=== PATIENT | female | born 1945 | race Caucasian/White ===

== ENCOUNTER 2016-05-24 11:38 | Emergency (ER) | payer MEDICARE ==
[~2016-05-24] VITALS: Ht 152.4 cm; Wt 102.1 kg
[~2016-05-24 11:38] MED LIST: ACHD5005 PO; ASP325T; ASP325T NG; ASP81TEC PO; ATEN-155; BPR150TCR; BSP5T; CLOP75TA; DIPH1TAB25 PO; HYDR200T46 PO; LISI1TAB; LOPE2CAP PO; LOPE2CAP29; MULTIVITAMIN; NF-CYM60C; NIAC250T17 PO; NOV; PRD20T PO; S-AD200T6 PO; SIMV20TA3 PO; VLS80C
--- OUTSIDE RECORDS SUMMARY | 2016-05-24 11:46 | XMS REPORT | Continuity of Care Document ---
Author Author [facility] Organization [facility] Address Unknown Phone Unavailable Care Team Providers Care Sorting Machine Attendant Name Role Phone Luanne Mcbride PCP [phone] Source Comments Some departments are not documenting in the electronic medical record. If you do not see the information that you expected, contact Release of Information in the Health Information Management department at [phone] for further assistance in locating additional records.[facility] Active Allergies and Adverse Reactions No Known Allergies Current Medications Prescription Sig. Disp. Refills Start End Date Status Date simvastatin (ZOCOR) 20 mg Take 20 mg by mouth at Active PO tablet bedtime daily. citalopram (CELEXA) 10 mg Take 10 mg by mouth Active PO tablet daily. Naproxen Sodium 220 mg PO Take 1-2 Tabs by mouth Active Tab twice daily as needed. niacin 500 mg PO tablet Take 500 mg by mouth at Active bedtime daily. aspirin 325 mg PO tablet Take 325 mg by mouth Active daily. hydrocodone-acetaminophen Take 1 Tab by mouth every Active (NORCO) 5-325 mg PO per 4 hours as needed. 1 tab tablet q 4-6 hrs prn ergocalciferol (VITAMIN Take 1 Cap by mouth every 12 Cap 0 01/04/20 Active D-2) 50,000 unit PO 7 days. 11 capsule hydroxychloroquine Take 2 Tabs by mouth 60 Tab 2 01/08/20 Active (PLAQUENIL) 200 mg PO daily. 11 tablet Active Problems Not on file Social History Tobacco Use Types Packs/Day Years Used Date Current Every Day Smoker Cigarettes 1 40 Smokeless Tobacco: Never Used Alcohol Use Drinks/Week oz/Week Comments Yes 1 Standard 0.5 drinks or equivalent Last Filed Vital Signs Vital Sign Reading Time Taken Blood Pressure 120/72 12/31/2010 10:51 AM CDT Pulse 97 12/31/2010 10:51 AM CDT Temperature 36.7 C (98 F) 12/31/2010 10:51 AM CDT Respiratory Rate - - Height 1.568 m (5' 1.75") 12/31/2010 10:51 AM CDT Weight 97.614 kg (215 lb 3.2 oz) 12/31/2010 10:51 AM CDT Body Mass Index 39.7 12/31/2010 10:51 AM CDT Oxygen Saturation - - Plan of Care Health Maintenance Due Date Last Done Comments Physical (Comprehensive) 06/21/1952 Exam Pertussis Vaccine 06/21/1958 Tetanus Vaccine 06/21/1964 Breast Cancer Screening 1987 Colorectal Cancer 06/21/1997 Screening Shingles Vaccine 2007 Osteoporosis Screening 06/21/2012 Prevnar/Pneumovax (#1) 06/21/2012 Influenza Vaccine 11/23/2015 Results from Last 3 Months Not on file
[2016-05-24] MEDS ORDERED: NS 100 ML (IVPB) BAG IV ONE (13:30)
[2016-05-24] MEDS ORDERED: NS IV 1000 ML 1,000 ML IV SCH (13:30)
[2016-05-24] MEDS ORDERED: CATHETER FLUSH 10 ML SYR IV PRN (13:30)
[2016-05-24] MEDS ORDERED: fentaNYL INJECTION 100 MCG/2 ML AMP IVP ONE (13:30)
[2016-05-24] MEDS ORDERED: IOHEXOL 350 MG/ML 100 ML (OMNIPAQUE 350) VIAL IV ONE (13:30)
[2016-05-24 13:43] LABS: BASOPHILS % (AUTO) 0 % (0-10); EOSINOPHILS % (AUTO) 0 % (0-10); LYMPHOCYTES # (AUTO) 0.7 X 10^3 (1.0-4.0); LYMPHOCYTES % (AUTO) 7 % (12-44); MEAN CORPUSCULAR HEMOGLOBIN 30 PG (25-34); MEAN CORPUSCULAR HGB CONC 34 G/DL (32-36); MEAN CORPUSCULAR VOLUME 88 FL (80-99); MEAN PLATELET VOLUME 10.7 FL (7.4-10.4); MONOCYTES # (AUTO) 0.5 X 10^3 (0.0-1.0); MONOCYTES % (AUTO) 5 % (0-12); NEUTROPHILS # (AUTO) 9.3 X 10^3 (1.8-7.8); NEUTROPHILS % (AUTO) 89 % (42-75); PLATELET COUNT 250 10^3/uL (130-400); RED BLOOD COUNT 5.14 10^6/uL (4.35-5.85); RED CELL DISTRIBUTION WIDTH 13.7 % (10.0-14.5); WHITE BLOOD COUNT 10.5 10^3/uL (4.3-11.0)
[2016-05-24 14:03] LABS: ALBUMIN 4.1 G/DL (3.2-4.5); BILIRUBIN,TOTAL 0.5 MG/DL (0.1-1.0); CALCIUM 9.2 MG/DL (8.5-10.1); CREATININE SERUM 0.96 MG/DL (0.60-1.30); TOTAL PROTEIN 6.8 G/DL (6.4-8.2)
[2016-05-24 14:16] LABS: BAND NEUTROPHILS 0 %; BASOPHILS % (MANUAL) 0 %; EOSINOPHILS % (MANUAL) 1 %; LYMPHOCYTES % (MANUAL) 7 %; NEUTROPHILS % (MANUAL) 89 %
[2016-05-24 14:31] LABS: BILIRUBIN,URINE NEGATIVE (NEGATIVE); KETONES,URINE NEGATIVE (NEGATIVE); LEUKOCYTE ESTERASE ,URINE NEGATIVE (NEGATIVE); NITRITE,URINE NEGATIVE (NEGATIVE); PH,URINE 6 (5-9); PROTEIN,URINE NEGATIVE (NEGATIVE); UROBILINOGEN,URINE NORMAL (NORMAL)
--- NOTE | 2016-05-24 14:57 | ED Abdominal Pain ---
General Chief Complaint: Abdominal/GI Problems Stated Complaint: RIGHT SIDE LOWER ABD PAIN/NAUSEA Nursing Triage Note: PT CO OF ABD PAIN, PT STATES HAS HX OF CERVICAL CA, PT STATES WAS SEEN BY [facility] ON FRIDAY AND GIVEN PARAFONFORTE, PT RATES PAIN 08/31 Sepsis Screen: No Definite Risk Source of Information: Patient Exam Limitations: No Limitations History of Present Illness Time Seen By Provider: 13:30 Initial Comments 62-year-old female presents with a complaint of abdominal pain present for the last 4 days despite Parafon forte given to her at [facility]. Patient denies associated dysuria, frequency, fever or chill, diarrhea, vomiting, or similar episode in past. Patient is status post cervical cancer and has had hysterectomy. Allergies and Home Medications Allergies Coded Allergies: No Known Drug Allergies (Verified , 10/21/08) Home Medications Aspirin 81 Mg Tabec 81 MG PO DAILY (Reported) Hydrocodone Bit/Acetaminophen 1 Each Tablet 1 EACH PO Q4H PRN PRN PAIN (Reported ) Hydroxychloroquine Sulfate 200 Mg Tab 400 MG PO DAILY (Reported) Niacin 250 Mg Tablet 250 MG PO DAILY (Reported) S-Adenosylmethionine Sul Tosyl 200 Mg Tablet.dr 400 MG PO DAILY (Reported) Review of Systems Constitutional: No chills, No fever EENTM: No Blurred Vision Respiratory: Denies Cough Cardiovascular: Denies Chest Pain Gastrointestinal: Abdominal Pain (patient is complaining of poorly localized lower abdominal pain sharp in nature severe in quality.) Genitourinary: Denies Burning, Denies Frequency Musculoskeletal: No back pain Skin: No rash Psychiatric/Neurological: No Symptoms Reported Endocrine: No Symptoms Reported Hematologic/Lymphatic: No Symptoms Reported Past Liapczg-Klugiq-Czrulb Hx Patient Social History Alcohol Use: Denies Use Recreational Drug Use: No Smoking Status: Never a Smoker Recent Foreign Travel: No Contact w/Someone Who Travel: No Recent Infectious Disease Expo: No Recent Hopitalizations: No (REBECCA,HYST,T&A,R ANKLE PLATE&PIN,TEETH EXTRACTED) Immunizations Up To Date Date of Pneumonia Vaccine: Dec 22, 2008 Date of Influenza Vaccine: Dec 23, 2011 Surgeries HX Surgeries: Yes (MODIFIED RADICAL VULVECTOMY 1991/CHOLECYSTECTOMY) Respiratory Hx Respiratory Disorders: Yes Cardiovascular Hx Cardiac Disorders: No ("PLAQUE BUILD UP") Neurological Hx Neurological Disorders: Yes 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 System Hx 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 Disorders: Yes (HX OF VULVAR CA--MODIFIED RADICAL VULVECTOMY 1991) Sexually Transmitted Disease: No Genitourinary Hx Genitourinary Disorders: No Gastrointestinal Hx Gastrointestinal Disorders: Yes (DIARRHEA ) Musculoskeletal Hx Musculoskeletal Disorders: Yes ("NO CARTILAGE IN KNEES") Endocrine Hx Endocrine Disorders: No HEENT HX ENT Disorders: Yes (DENTURES) Psychosocial Hx Psychiatric Problems: Yes Blood Transfusions Hx Blood Disorders: No Reviewed Nursing Assessment Reviewed/Agree w Nursing PMH: Yes Physical Exam Vital Signs VS - Last 72 Hours, by Label 05/24/16 13:15 Temp 98.3 Pulse 95 Resp 18 B/P 187/94 Pulse Ox 96 Capillary Refill : Less Than 3 Seconds General Appearance: WD/WN mild distress HEENT: normal ENT inspection Neck: normal inspection Respiratory: lungs clear normal breath sounds Cardiovascular: regular rate, rhythm Gastrointestinal: normal bowel sounds tenderness (there is moderate diffuse lower abdominal tenderness.) Extremities: normal range of motion Neurologic/Psychiatric: no motor/sensory deficits Progress/Results/Core Measures Results/Orders Lab Results Laboratory Tests Test 05/24/16 13:30 05/24/16 14:15 Range/Units Alanine Aminotransferase (ALT/SGPT) 18 0-55 U/L Albumin 4.1 3.2-4.5 G/DL Alkaline Phosphatase 68 40-136 U/L Anion Gap 12 5-14 MMOL/L Aspartate Amino Transf (AST/SGOT) 15 5-34 U/L BUN/Creatinine Ratio 15 Band Neutrophils 0 % Basophils # (Auto) 0.0 0.0-0.1 10^3/uL Basophils % (Manual) 0 % Basophils (%) (Auto) 0 0-10 % Blood Morphology Comment NORMAL Blood Urea Nitrogen 14 7-18 MG/DL Calcium Level 9.2 8.5-10.1 MG/DL Carbon Dioxide Level 21 21-32 MMOL/L Chloride Level 108 H 98-107 MMOL/L Creatinine 0.96 0.60-1.30 MG/DL Eosinophils # (Auto) 0.0 0.0-0.3 10^3/uL Eosinophils % (Manual) 1 % Eosinophils (%) (Auto) 0 0-10 % Estimat Glomerular Filtration Rate 58 Glucose Level 115 H 70-105 MG/DL Hematocrit 45 35-52 % Hemoglobin 15.2 11.5-16.0 G/DL Lipase 15 8-78 U/L Lymphocytes # (Auto) 0.7 L 1.0-4.0 X 10^3 Lymphocytes % (Manual) 7 % Lymphocytes (%) (Auto) 7 L 12-44 % Mean Corpuscular Hemoglobin 30 25-34 PG Mean Corpuscular Hemoglobin Concent 34 32-36 G/DL Mean Corpuscular Volume 88 80-99 FL Mean Platelet Volume 10.7 H 7.4-10.4 FL Monocytes # (Auto) 0.5 0.0-1.0 X 10^3 Monocytes % (Manual) 3 % Monocytes (%) (Auto) 5 0-12 % Neutrophils # (Auto) 9.3 H 1.8-7.8 X 10^3 Neutrophils % (Manual) 89 % Neutrophils (%) (Auto) 89 H 42-75 % Platelet Count 250 130-400 10^3/uL Potassium Level 4.0 3.6-5.0 MMOL/L Red Blood Count 5.14 4.35-5.85 10^6/uL Red Cell Distribution Width 13.7 10.0-14.5 % Sodium Level 141 135-145 MMOL/L Total Bilirubin 0.5 0.1-1.0 MG/DL Total Protein 6.8 6.4-8.2 G/DL White Blood Count 10.5 4.3-11.0 10^3/uL Urine Bacteria NEGATIVE /HPF Urine Bilirubin NEGATIVE NEGATIVE Urine Casts NONE /LPF Urine Clarity CLEAR Urine Color YELLOW Urine Crystals NONE /LPF Urine Culture Indicated NO Urine Glucose (UA) NEGATIVE NEGATIVE Urine Ketones NEGATIVE NEGATIVE Urine Leukocyte Esterase NEGATIVE NEGATIVE Urine Mucus NEGATIVE /LPF Urine Nitrite NEGATIVE NEGATIVE Urine Protein NEGATIVE NEGATIVE Urine RBC NONE /HPF Urine RBC (Auto) NEGATIVE NEGATIVE Urine Specific [place] 1.010 L 1.016-1.022 Urine Squamous Epithelial Cells 10-25 H /HPF Urine Urobilinogen NORMAL NORMAL MG/DL Urine WBC NONE /HPF Urine pH 6 5-9 My Orders Orders-SERGIO FARAH MD Cbc With Automated Diff (05/24/16 13:23) Comprehensive Metabolic Panel (05/24/16 13:23) Ua Culture If Indicated (05/24/16 13:23) Lipase (05/24/16 13:23) Ct Abdomen/Pelvis W (05/24/16 13:23) Fentanyl Injection (Sublimaze Injection (05/24/16 13:30) Ns Iv 1000 Ml (Sodium Chloride 0.9%) (05/24/16 13:30) Iohexol Injection (Omnipaque 350 Mg/Ml 1 (05/24/16 13:30) Sodium Chloride Flush (Catheter Flush Sy (05/24/16 13:30) Ns (Ivpb) (Sodium Chloride 0.9% Ivpb Bag (05/24/16 13:30) Manual Differential (05/24/16 13:30) Medications Given in ED Current Medications Medications Dose Ordered Sig/Kenneth Route Start Time Stop Time Status Last Admin Dose Admin Fentanyl Citrate 50 mcg ONCE ONCE IVP 05/24/16 13:30 05/24/16 13:31 DC 05/24/16 13:37 50 MCG Iohexol 100 ml ONCE ONCE IV 05/24/16 13:30 05/24/16 13:41 DC 05/24/16 14:22 100 ML Sodium Chloride 100 ml ONCE ONCE IV 05/24/16 13:30 05/24/16 13:41 DC 05/24/16 14:22 80 ML Vital Signs/I&O Vital Sign - Last 12Hours 05/24/16 13:15 Temp 98.3 Pulse 95 Resp 18 B/P 187/94 Pulse Ox 96 Blood Pressure Mean: 125 Progress Note : Time: 16:50 Progress Note The patient's evaluation emergency Department demonstrated no significant findings on physical exam other than moderate lower abdominal tenderness. The patient's CT of the abdomen, CBC, CMP, and urinalysis were similarly benign. I discussed the findings with the patient and asked that she follow-up closely with her physician on Friday. In the interim I invited her to return the emergency Department if she has any further problems. I am going to give her a trial of tramadol for her pain in place of her hydrocodone. Departure Impression Impression: Primary Impression: Abdominal wall pain Disposition: HOME, SELF-CARE Condition: Improved Decision to Admit Reason: Admit from ER (General) Departure-Patient Inst. Decision time for Depature: 16:53 Referrals: [facility] (PCP[facility]Family) Primary Care Physician Patient Instructions: Acute Abdomen (Belly Pain), Adult (DC) Add. Discharge Instructions: Trial of tramadol for abdominal pain. Close follow-up to health on Friday. Return of any problems. All discharge instructions reviewed with patient and/ or family. Voiced understanding. SERGIO FARAH MD May 24, 2016 14:57
--- NOTE | 2016-05-24 14:59 | Diagnostic Imaging Report ---
PROCEDURE: CT abdomen and pelvis with contrast. TECHNIQUE: Multiple contiguous axial images were obtained through the abdomen and pelvis after administration of intravenous contrast. INDICATION: Right-sided pain. FINDINGS: The appendix was visualized. The appendix is not abnormally thickened and there is no distortion of the periappendiceal fat to suggest acute appendicitis. There is no pelvic mass or free fluid collection identified. As noted on the previous CT abdomen/pelvis exam of 11/14/10, the uterus is surgically absent. The urinary bladder is grossly unremarkable. There is no evidence for a solid mass involving either kidney and both kidneys do show excretion of the contrast. There is no sign of obstruction of either collecting system. The previous exam did show a 1.9 x 2.0 cm cyst along the lateral aspect of the right kidney. This cyst has increased in size and now measures 3.5 x 3.7 cm. A 1.2 x 1.7 cm cyst along the superior pole of the right kidney seen previously is again visualized and also measured larger. This cyst is now estimated to be 2.2 x 2.5 cm. Both of these cysts still have a generally benign appearance. The liver is of lower density than usually seen. This appearance does suggest fatty metamorphosis. There is no focal mass involving the liver and the biliary tree is not abnormally dilated. The gallbladder is surgically absent. The spleen, pancreas, adrenals and inferior vena cava are unremarkable for an acute abnormality. The prior study did show a fair amount of intraluminal thrombus associated with the aorta. The aorta was not aneurysmally dilated. On this exam, the overall appearance of the aorta has not changed significantly. The stomach is not well distended and consequently difficult to assess. There is no obvious gastric abnormality evident. There does appear to be a 2.2 x 2.5 cm hiatal hernia. This was not present on the prior exam. As noted on the prior exam, there are postsurgical changes involving the anterior abdominal wall consistent with prior ventral hernia repair. The repair appears to be intact. There is no sign of a recurrent ventral hernia. The images through the lung bases show a small 5 mm noncalcified nodule in the right lower lobe. That finding is again evident and no different. The bone windows are unremarkable for a fracture or for a destructive lesion. IMPRESSION: 1. There is no evidence for an acute abnormality of the abdomen or pelvis. In particular, there is no sign of appendicitis. 2. The cysts associated with the right kidney seen on the prior study have increased in size. These cysts still have a generally benign appearance. 3. A small hiatal hernia has developed in the interval since the prior exam. 4. The aorta is not abnormally dilated. As noted on the prior exam, there is a fair amount of intraluminal thrombus. 5. The ventral hernia repair seen previously appears intact. There is no sign of a recurrent hernia. 6. The small nodule in the right lung base noted on the prior exam is stable. Most likely, this is a benign process. Dictated by: Dictated on workstation # [id number]
[2016-05-24 17:03] VITALS: BP 145/88
== END 2016-05-24 17:03 | disposition home or self-care (01) ==
LOC: EDUNIT# 11:38 → ER 11:42
DX: R10.30 Lower abdominal pain, unspecified (principal); N28.1 Cyst of kidney, acquired; R91.1 Solitary pulmonary nodule; I74.10 Embolism and thrombosis of unspecified parts of aorta; K44.9 Diaphragmatic hernia without obstruction or gangrene; Z79.82 Long term (current) use of aspirin; Z79.899 Other long term (current) drug therapy; Z85.41 Personal history of malignant neoplasm of cervix uteri; Z85.44 Personal history of malignant neoplasm of other female genital organs; Z90.710 Acquired absence of both cervix and uterus
CPT/HCPCS: 36415; 74177; 80053; 81000; 83690; 85007; 85027; 96374

== ENCOUNTER → 2017-09-11 | Outpatient (CLI) | payer MEDICARE ==
--- NOTE | 2017-09-11 12:40 | Diagnostic Imaging Report ---
INDICATION: Osteoporosis screening. COMPARISON: 11/29/2010. FINDINGS: The bone mineral density of the lumbar spine from L2 to L4 is 1.316 with a T score of 1.0. This compares with 1.351 and 1.3. The bone mineral density in the left femoral neck is 0.865 with a T score of -1.2. This compares with 0.934 and -0.8. The bone mineral density of the right femoral neck is 1.003 with a T score of -0.2. This compares with 0.905 and -1.0. IMPRESSION: Normal bone mineral density of the lumbar spine and right femoral neck. There is osteopenia of the left femoral neck. Dictated by: Dictated on workstation # [id number]
== END ==
LOC: RAD 10:45
PROVIDERS: ATTEND Nurse Practitioner Family
DX: Z13.820 Encounter for screening for osteoporosis (principal); M85.88 Other specified disorders of bone density and structure, other site; Z78.0 Asymptomatic menopausal state
CPT/HCPCS: 77080

== ENCOUNTER 2017-12-19 08:02 | Emergency (ER) | payer MEDICARE ==
[~2017-12-19] VITALS: Ht 157.5 cm; Wt 90.7 kg
--- OUTSIDE RECORDS SUMMARY | 2017-12-19 08:08 | XMS REPORT | Clinical Summary ---
Author Author [facility] Organization [facility] Address Unknown Phone Unavailable Care Team Providers Care Radiation Oncology Therapist Name Role Phone Alyssa Olson MD Unavailable Luanne Mcbride DO PCP Source Comments Some departments are not documenting in the electronic medical record. If you do not see the information that you expected, contact Release of Information in the Health Information Management department at [phone] for further assistance in locating additional records.[facility] Allergies No Known Allergies Current Medications Prescription Sig. [...] D-2) 50,000 unit PO 7 days. 11 capsuleIndications: Vitamin D deficiency hydroxychloroquine Take 2 Tabs by mouth 60 Tab 2 01/08/20 Active (PLAQUENIL) 200 mg PO daily. 11 tablet Active Problems Not on file Family History Medical History Relation Name Comments Diabetes Maternal Grandmother Heart Disease Maternal Grandmother Stroke Maternal Grandmother Diabetes Mother Stroke Mother Epilepsy Son Relation Name Status Comments Brother Alive Maternal Grandfather Maternal Grandmother Mother Alive Sister Alive Son Alive Social History Tobacco Use Types Packs/Day Years Used Date Current Every Day Smoker Cigarettes 1 40 Smokeless Tobacco: Never Used Alcohol Use Drinks/Week oz/Week Comments Yes 1 Standard 0.5 drinks or equivalent Sex Assigned at Date Recorded Not on file Last Filed Vital Signs Vital Sign Reading Time Taken Blood Pressure 120/72 12/31/2010 10:51 AM CDT Pulse 97 12/31/2010 10:51 AM CDT Temperature 36.7 C (98 F) 12/31/2010 10:51 AM CDT Respiratory Rate - - Oxygen Saturation - - Inhaled Oxygen - - Concentration Weight 97.6 kg (215 lb 3.2 oz) 12/31/2010 10:51 AM CDT Height 156.8 cm (5' 1.75") 12/31/2010 10:51 AM CDT Body Mass Index 39.68 12/31/2010 10:51 AM CDT Plan of Treatment Health Maintenance Due Date Last Done Comments HEPATITIS C SCREENING 1945 PHYSICAL (COMPREHENSIVE) 06[birth year]21[birth year]1954 EXAM PERTUSSIS VACCINE 06/21/1958 TETANUS VACCINE 06/21/1964 BREAST CANCER SCREENING 1987 COLORECTAL CANCER 06/21/1997 SCREENING SHINGLES RECOMBINANT 06/21/1997 VACCINE (1 of 2) OSTEOPOROSIS SCREENING 06/21/2012 PNEUMONIA (PCV13/PPSV23) 06/21/2012 VACCINES (1 of 2 - PCV13) INFLUENZA VACCINE 12/22/2017 Results Not on filefrom Last 3 Months
--- OUTSIDE RECORDS SUMMARY | 2017-12-19 08:08 | XMS REPORT ---
Author Author CHRISTA GLORIA Organization [facility] Address [address] [place] [address] Care Team Providers Care Store Warehouse Associate Name Role Phone CHRISTA GLORIA Unavailable PROBLEMS Type Condition ICD9-CM Code [id number] Code Onset Dates Condition Status SNOMED Code Problem Other chronic pain G89.29 Active 12901682 Problem Acute right-sided low back pain with right-sided sciatica M54.41 Active 693858933 Problem Lumbago with sciatica, right side M54.41 Active 425497596 Problem Asymptomatic menopausal state Z78.0 Active 22778984 Problem Episode of recurrent major depressive disorder, unspecified depression episode severity F33.9 Active 233562002 Problem 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 E78.2 Active 077019553 Problem Other chronic pain G89.29 Active 81643312 Problem Anxiety F41.9 Active 44001120 Problem Other organ or system involvement in systemic lupus erythematosus M32.19 Active 45086247 Problem Sciatica M54.30 Active 53798896 Problem Hepatitis C B19.20 Active 52073199 Problem HILARIO (obstructive sleep apnea) G47.33 Active 26124606 Problem 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 Active 399697770 Problem Seborrheic keratoses L82.1 Active 886870800 Problem Urinary frequency R35.0 Active 425071960 ALLERGIES No Information ENCOUNTERS Encounter Location Date Diagnosis [facility] [address] [facility] [id number] [address] Nov, Other organ or system involvement in systemic lupus erythematosus M32.19 [facility] [id number], [place] [address] Oct, Other organ or system involvement in systemic lupus erythematosus M32.19 [facility] [address] [id number], [place] [address] Sep, Other organ or system involvement in systemic lupus erythematosus M32.19 [place] [address], [place] [address] Aug, Anxiety F41.9 [facility] [id number] [place] [address] 69390- 4785 Aug, Other organ or system involvement in systemic lupus erythematosus M32.19 [place] [id number] [place] [address] 62845- 6227 July, Medicare annual wellness visit, initial Z00.00 ; Anxiety F41.9 ; HILARIO (obstructive sleep apnea) G47.33 ; Hepatitis C B19.20 ; Other chronic pain G89.29 ; Asymptomatic menopausal state Z78.0 and Episode of recurrent major depressive disorder, unspecified depression episode severity F33.9 [place] [id number] [address] July, Anxiety F41.9 [place] [id number] [place] [address] 20769- 1977 July, Other organ or system involvement in systemic lupus erythematosus M32.19 [place] [id number] [place] [address] 78850- 7278 July, [place] [id number] [place] [address] 26984- 8823 Jun, Other organ or system involvement in systemic lupus erythematosus M32.19 ; BMI 40.0-44.9, adult Z68.41 ; Other chronic pain G89.29 and Controlled substance agreement signed Z79.899 [place] [address], [place] [address] May, Sciatica M54.30 [place] [id number] [place] [address] 93269- 0369 Apr, Sciatica M54.30 [place] [id number] [place] [address] 66564- 0882 Mar, Sciatica M54.30 [facility] [id number] [place] [address] 17622- 2486 Feb, Sciatica M54.30 [facility] [id number] [place] [address] 08042- 9658 Jan, Sciatica M54.30 [facility] [id number] [place] [address] 58652- 9146 Jan, Sciatica M54.30 [facility] [address] [address]- 2664 Dec, Sciatica M54.30 [place] [address] 78214- 9712 18 Dec, 2016 Sciatica M54.30 [place] [id number] [place] [address] 64302- 0927 29 Nov, 2016 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 E78.2 ; Chronic seasonal allergic rhinitis due to other allergen J30.2 and Family history of early CAD Z82.49 [place] [id number] [place] [address] 39066- 2275 Nov, Sciatica M54.30 [place] [id number] [place] [address] 25947- 6820 18 Nov, 2016 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 E78.2 ; Chronic seasonal allergic rhinitis due to other allergen J30.2 ; Family history of early CAD Z82.49 ; Other chronic pain G89.29 and Pain in left shoulder M25.512 [place] [id number] [place] [address] 80590- 3477 11 Nov, 2016 Acute pain of left shoulder M25.512 [place] [id number] [place] [address] 49751- 8715 23 Oct, 2016 Sciatica M54.30 [facility] [id number] [place] [address] 34257- 2184 Oct, [facility] [id number] [place] [address] 03608- 6250 Sep, Sciatica M54.30 [facility] [id number] [place] [address] 00196- 6446 Sep, Acute pain of left shoulder M25.512 [facility] [id number] [place] [address] 08376- 2162 Sep, Acute pain of left shoulder M25.512 [place] [address] [place] [address] 71365- 4072 Aug, Sciatica M54.30 [place] [address] [place] [address] 20610- 7528 Aug, Sciatica M54.30 ; Tobacco abuse Z72.0 and Tobacco abuse counseling Z71.6 [place] [id number] [place] [address] 94509- 2034 Aug, Acute pain of left shoulder M25.512 [facility] [id number] [place] [address] 65737 -2058 Aug, Contusion of right shoulder, initial encounter S40.011A ; Acute pain of left shoulder M25.512 and Shortness of breath R06.02 [place] [address] [place] [address] 63664- 4311 Aug, Lumbago with sciatica, right side M54.41 [place] [id number] [place] [address] 77990- 4170 July, [place] [id number] [place] [address] 81602- 5473 July, Lumbago with sciatica, right side M54.41 [place] [address] [place] [address] 54855- 3759 Jun, Lumbago with sciatica, right side M54.41 [facility] [id number] [place] [address] 84843- 5235 May, Lumbago with sciatica, right side M54.41 [facility] [id number] [place] [address] 87355 -2163 May, Herpes zoster without complication B02.9 [facility] [id number] [place] [address] 18279 -7081 May, Back pain M54.9 and Acute right-sided low back pain with right-sided sciatica M54.41 [facility] [address] 75247- 0298 Apr, [facility] [address] 42899- 7139 Apr, Lumbago with sciatica, right side M54.41 and Other chronic pain G89.29 [facility] [id number] [place] [address] 48369- 7486 Apr, [facility] [address] 33317- 2154 Mar, [facility] [id number] [place] [address] 63572- 5478 Mar, [facility] [id number] [place] [address] 94536- 1913 Feb, [facility] [id number] [place] [address] 65410 -6647 Jan, Urinary frequency R35.0 [facility] [id number] [place] [address] 91740- 8512 Jan, [facility] [address] [place] [address] 19074- 5654 Dec, [facility] [address] [place] [address] 89621- 9899 Oct, [facility] [address] [place] [address] 02895- 0697 Sep, [facility] [address] [place] [address] 84418 -6397 Sep, Foreign body in left foot, initial encounter S90.852A [facility] [address] [place] [address] 61268- 6057 Aug, [facility] [address] [place] [address] 54636- 6713 July, Sciatica M54.30 [place] [address] 45595- 2222 Jun, [place] [address] 50206- 9482 May, Osteoarthritis M19.90 [place] [address] [place] [address] 15952- 7473 May, [place] [address] 14293- 8197 May, Pain in right hip M25.551 [facility] [address] [place] [address] 24212 -8998 May, Tinea corporis B35.4 [place] [address] [place] [address] 56844- 8225 Apr, Pain in right hip M25.551 [place] [address] [place] [address] 70387- 3211 Mar, Pain in right hip M25.551 [place] [address] [place] [address] 48896- 5716 Mar, [facility] [address] 77039- 2571 Feb, Pain in right hip M25.551 [place] [address] [place] [address] 92210- 0534 13 Jan, 2015 Acute bronchitis, unspecified organism J20.9 and Cough R05 [place] [address], [place] [address]- 5375 Jan, Pain in right hip M25.551 [facility] [address] [place] [address], [place] [address]- 3916 Dec, Pain in right hip M25.551 [facility] [address], [place] [address]- 4846 Nov, Acute bronchitis 466.0 [facility] [address] [address]- 1846 Nov, [facility] [address] [place] [address] 68790- 2806 Oct, [facility] [address], [place] [address]- 7306 Sep, [facility] [address] [place] [address] 07676- 4434 Aug, [facility] [address], [place] [address]- 7749 July, [facility] [address], [place] [address]- 7262 Jun, [facility] [address], [place] [address]- 8064 Jun, [facility] [address], [place] [address]- 2436 May, [facility] [address], [place] [address]- 8227 May, [facility] [id number], [place] [address]- 8733 Apr, [facility] [address], [place] [address]- 2546 Apr, [facility] [address], [place] [address]- 5486 Apr, [facility] [place] [facility] [address] [id number] [place] [address]- 7183 Apr, 2014 [facility] [place] [facility] [address] [id number] [place] [address]- 5118 Apr, [facility] [place] [facility] [address] [id number] [place] [address]- 0312 Apr, [facility] [place] [facility] [address] [id number] [place] [address]- 3792 Mar, [facility] [place] [facility] [address] [id number] [place] [address]- 9533 Mar, [facility] [place] [facility] [address] [id number] [place] [address]- 5859 Feb, [facility] [place] [facility] [address] [id number] [place] [address]- 3875 Feb, [facility] [place] [facility] [address] [id number] [place] [address]- 5338 Feb, [facility] [place] [facility] [address] [id number] [place] [address]- 4640 Dec, [facility] [place] [facility] [address] [id number] [place] [address]- 4341 Dec, [facility] [place] [facility] [address] [facility] [id number], [place] [address]- 3952 Nov, [facility] [place] [facility] [address] [id number], [place] [address]- 6505 17 Nov, 2013 [facility] [place] [facility] [address] [id number] [place] [address]- 8364 Nov, [facility] [place] [facility] [address] [id number] [place] [address]- 0003 Nov, [facility] [place] [facility] [address] [id number], [place] [address]- 5180 Sep, [facility] [place] [facility] [address] [id number], [place] [address]- 5960 Sep, [facility] [place] [facility] [address] [id number] [place] [address]- 7902 Sep, [facility] [place] [facility] [address] [id number] [place] [address]- 4801 Sep, [facility] [place] [facility] [address] [id number] [place] [address]- 1227 Aug, [facility] [place] [facility] [address] [id number] [place] [address]- 9081 Aug, [facility] [place] [facility] [address] [id number] [place] [address]- 1303 Aug, [facility] [place] [facility] [address] [id number] [place] [address]- 4269 Aug, [facility] [place] [facility] [address] [id number] [place] [address]- 0338 July, [facility] [place] [facility] [address] [id number] [place] [address]- 5321 July, [facility] [place] [facility] [address] [id number] [place] [address]- 7638 Jun, [facility] [place] [facility] [address] [id number] [place] [address]- 8624 Jun, [facility] [place] [facility] [address] [id number] [place] [address]- 4527 Jun, [facility] [place] [facility] [address] [id number] [place] [address]- 6984 Jun, [facility] [place] [facility] [address] [id number] [place] [address]- 2298 Jun, [facility] [place] [facility] [address] [id number] [place] [address]- 2903 Jun, [facility] [place] [facility] [address] [id number] [place] [address]- 5956 Jun, [facility] [place] [facility] [address] [id number] [place] [address]- 5592 Jun, [facility] [place] [facility] [address] [id number] [place] [address]- 7720 May, [facility] [place] [facility] [address] [id number] [place] 4122 May, [facility] [place] [facility] [address] [id number] [place] [address]- 9129 May, [facility] [place] [facility] [address] [id number] [place] [address]- 8659 May, [facility] [place] [facility] [address] [id number] [place] [address]- 9508 May, [facility] [place] [facility] [address] [id number] [place] [address]- 5126 May, [facility] [place] [facility] [address] [id number] [place] [address]- 3181 Apr, [facility] [place] [facility] [address] [id number] [place] [address]- 8257 Apr, [facility] [place] [facility] [address] [id number] [place] [address]- 7011 Apr, [facility] [place] [facility] [address] [id number] [place] [address]- 0696 Apr, [facility] [place] [facility] [address] [id number] [place] [address]- 7616 Mar, [facility] [place] [facility] [address] [id number] [place] [address]- 3477 Mar, [facility] [place] [facility] [address] [id number] [place] [address]- 2552 Mar, [facility] [place] [facility] [address] [id number] [place] [address]- 2185 Mar, [facility] [place] [facility] [address] [id number], [place] [address]- 1246 Mar, [facility] [address] [id number] [place] [address]- 0795 Mar, [facility] [address] [id number] [place] [address]- 4896 Feb, [facility] [address] [id number] [place] [address]- 2896 Feb, [facility] [place] [facility] [address] [id number] [place] [address]- 5794 Feb, [facility] [address] [id number] [place] [address]- 0997 Feb, [facility] [address] [id number] [place] [address]- 7826 Feb, [facility] [address] [id number] [place] [address]- 7744 Feb, [facility] [place] [facility] [address] [id number] [place] [address]- 6394 Feb, [facility] [address] [id number] [place] [address]- 4744 Feb, [facility] [place] [facility] [address] [id number] [place] [address]- 3571 Feb, [facility] [place] [facility] [address] [id number], [place] [address]- 9626 Feb, [facility] [place] [facility] [address] [id number], [place] [address]- 2547 Feb, [facility] [place] [facility] [address] [id number] [place] [address]- 7194 Feb, [facility] [place] [facility] [address] [id number], [place] [address]- 6401 Jan, [facility] [place] [facility] [address] [id number] [place] [address]- 2546 Jan, [facility] [place] [facility] [address] [id number] [place] [address]- 6687 Jan, [facility] [address] [id number] [place] [address]- 0573 Jan, [facility] [place] [facility] [address] [id number] [place] [address]- 5440 Jan, [facility] [address] [id number] [place] [address]- 6759 Jan, [facility] [place] [facility] [address] [id number] [place] [address]- 1710 Jan, [facility] [address] [id number] [place] [address]- 6238 Jan, [facility] [address] [id number] [place] [address]- 6090 Jan, [facility] [address] [id number] [place] [address]- 7007 Jan, [facility] [address] [id number] [place] [address]- 9118 Dec, [facility] [place] [facility] [address] [id number] [place] [address]- 0012 Dec, [facility] [address] [id number] [place] [address]- 5409 Nov, [facility] [place] [facility] [address] [id number] [place] [address]- 2545 Nov, [facility] [place] [facility] [address] [id number] [place] [address]- 2544 Nov, [facility] [place] [facility] [address] [id number] [place] [address]- 2639 05 Nov, 2012 [facility] [place] [facility] [address] [id number] [place] [address]- 9084 Nov, [facility] [place] [facility] [address] [id number] [place] [address]- 3715 Oct, [facility] [address] [id number] [place] [address]- 6953 Oct, [facility] [place] [facility] [address] [id number] [place] [address]- 1303 Oct, [facility] [place] [facility] [address] [id number] [place] [address]- 1860 Oct, [facility] [place] [facility] [address] [id number] [place] [address]- 2864 Oct, [facility] [place] [facility] [address] [id number] [place] [address]- 8536 Sep, [facility] [place] [facility] [address] [id number] [place] [address]- 9994 Sep, [facility] [place] [facility] [address] [id number] [place] [address]- 7924 Sep, [facility] [place] [facility] [address] [id number] [place] [address]- 9399 Sep, [facility] [place] [facility] [address] [id number] [place] [address]- 9930 Sep, [facility] [place] [facility] [address] [id number] [place] [address]- 0774 Sep, [facility] [place] [facility] [address] [id number] [place] [address]- 7210 Aug, [facility] [place] [facility] [address] [id number] [place] [address]- 6524 Aug, [facility] [place] [facility] [address] [id number] [place] [address]- 1545 July, [facility] [place] [facility] [address] [id number] [place] [address]- 0898 July, [facility] [place] [facility] [address] [id number] [place] [address]- 0596 July, [facility] [place] [facility] [address] [id number] [place] [address]- 8026 23 Jun, 2012 [facility] [address] [id number] [place] [address]- 5833 18 Jun, 2012 [facility] [place] [facility] [address] [id number] [place] [address]- 3473 16 Jun, 2012 [facility] [address] [facility] [id number] [place] [address]- 7474 Jun, [facility] [address] [id number] [place] [address]- 79[address] May, [facility] [address] [id number] [place] [address] May, [facility] [address] [id number] [place] [address] Apr, [facility] [address] [id number] [place] [address] Apr, [facility] [address] [id number] [place] [address] Apr, [facility] [address] [id number] [place] [address] Apr, [facility] [address] [facility] [id number] [place] [address] Apr, [facility] [address] [id number] [place] [address] Apr, [facility] [address] [facility] [id number] [place] [id number] Apr, [facility] [place] [facility] [address] [id number] [place] [address] Apr, [facility] [place] [facility] [address] [facility] [id number] [place] [address]196 Mar, [facility] [facility] [address] [facility] [id number] [place] [address] Mar, [facility] [place] [address] [id number] [place] [address] Mar, [facility] [address] [id number] [place] [address] Mar, [facility] [place] [facility] [address] [id number] [place] [address] Jan, [facility] [address] [id number] [place] [address], [place] [address] Jan, [facility] [address] [id number] [place] [address] Jan, [facility] [address] [id number] [place] [address] Jan, [facility] [place] [address] [id number] [place] [address] Jan, [facility] [address] [id number] [place] [address] Dec, [facility] [place] [address] [id number] [place] [address] Dec, [facility] [place] [facility] [address] [id number] [place] [address] Dec, [facility] [place] [address] [id number] [place] [address]77 Dec, [facility] [place] [address] [id number] [place] [address] Nov, [facility] [place] [facility] [address] [id number] [place] [address] Oct, [facility] [address] [id number] [place] [address]90 Oct, [facility] [address] [id number] [place] [address] Oct, [facility] [place] [address] [id number] [place] [address] Oct, [facility] [address] [id number] [place] [address] Oct, [facility] [address] [id number] [place] [address] Sep, [facility] [address] [id number] [place] [address] Sep, [facility] [address] [id number] [place] [address] Aug, [facility] [address] [id number] [place] [address] Aug, [facility] [place] [facility] [address] [id number] [place] [address] Aug, [facility] [place] [address] [id number] [place] [address]75 Aug, [facility] [address] [id number] [place] [address] July, [facility] [place] [facility] [address] [id number] [place] [address]397 Jun, [facility] [place] [facility] [address] [id number] [place] [address] May, [facility] [address] [id number] [place] [address]25 May, [facility] [place] [address] [id number] [place] [address] May, [facility] [address] [id number] [place] [address] Mar, [facility] [address] [id number] [place] [address]697 Feb, [facility] [address] [id number] [place] [address] Feb, [facility] [id number] [place] [address] Jan, [facility] [id number] [place] [address] Jan, [facility] [id number] [place] [address] Jan, [facility] [id number], [place] [address] Jan, [facility] [id number] [place] [address] Jan, [facility] [id number] [place] [id number] Dec, [facility] [id number] [address] Dec, [facility] [id number] [place] [id number] Dec, [facility] [id number] [address] May, [facility] [id number] [address] May, [facility] [id number] [address] Apr, [facility] [id number] [address] Jan, [facility] [id number] [address] Apr, IMMUNIZATIONS No Known Immunizations SOCIAL HISTORY Never Assessed REASON FOR VISIT Controlled Med Refill PLAN OF CARE VITAL SIGNS MEDICATIONS Medication Instructions Dosage Frequency Start Date End Date Duration Status [place] 5-325 MG Orally every 6 hrs PRN 1 tablet Nov, 28 days Active RESULTS No Results PROCEDURES No Known procedures INSTRUCTIONS MEDICATIONS ADMINISTERED No Known Medications MEDICAL (GENERAL) HISTORY Type Description Date Medical History unspecified connective tissue disease Medical History cancer(vulvar) Medical History cancer(cervical) Medical History depression Medical History Sciatica Medical History Sciatica Medical History Chronic hepatitis C without mention of hepatic coma Medical History Unspecified disorder of kidney and ureter Medical History Counseling on substance use and abuse Surgical History cholecystectomy Surgical History hysterectomy Surgical History modified radical vulvectomy for cancer Hospitalization History surgeries
--- OUTSIDE RECORDS SUMMARY | 2017-12-19 08:08 | XMS REPORT ---
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 Name Role Phone CHRISTA GLORIA Unavailable PROBLEMS Type Condition ICD9-CM Code KAZ60-DV Code Onset Dates Condition Status SNOMED Code Problem Other chronic pain G89.29 Active 90098231 Problem Acute right-sided low back pain with right-sided sciatica M54.41 Active 694841117 Problem Lumbago with sciatica, right side M54.41 Active 667195021 Problem Asymptomatic menopausal state Z78.0 Active 63161125 Problem Episode of recurrent major depressive disorder, unspecified depression episode severity F33.9 Active 254641994 Problem 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 E78.2 Active 152711909 Problem Other chronic pain G89.29 Active 46331120 Problem Anxiety F41.9 Active 16221467 Problem Other organ or system involvement in systemic lupus erythematosus M32.19 Active 17382147 Problem Sciatica M54.30 Active 35819848 Problem Hepatitis C B19.20 Active 84414756 Problem HILARIO (obstructive sleep apnea) G47.33 Active 28558453 Problem 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 Active 709377945 Problem Seborrheic keratoses L82.1 Active 813973429 Problem Urinary frequency R35.0 Active [id number] ALLERGIES No Information ENCOUNTERS Encounter Location Date Diagnosis [facility] [place] [address] [facility] [id number] [address] Nov, Other organ or system involvement in systemic lupus erythematosus M32.19 [facility] [place] [id number], [place] [address] Oct, Other organ or system involvement in systemic lupus erythematosus M32.19 [facility] [place] [address] [id number], [place] [address] Sep, Other organ or system involvement in systemic lupus erythematosus M32.19 [place] [address], [place] [address] Aug, Anxiety F41.9 [facility] [place] [id number] [place] [address] 09892- 8373 Aug, Other organ or system involvement in systemic lupus erythematosus M32.19 [place] [id number] [place] [address] 36642- 0558 July, Medicare annual wellness visit, initial Z00.00 ; Anxiety F41.9 ; HILARIO (obstructive sleep apnea) G47.33 ; Hepatitis C B19.20 ; Other chronic pain G89.29 ; Asymptomatic menopausal state Z78.0 and Episode of recurrent major depressive disorder, unspecified depression episode severity F33.9 [place] [id number] [address] July, Anxiety F41.9 [place] [id number] [place] [address] 61366- 2655 July, Other organ or system involvement in systemic lupus erythematosus M32.19 [place] [id number] [place] [address] 81622- 3853 July, [place] [id number] [place] [address] 25598- 0219 Jun, Other organ or system involvement in systemic lupus erythematosus M32.19 ; BMI 40.0-44.9, adult Z68.41 ; Other chronic pain G89.29 and Controlled substance agreement signed Z79.899 [place] [address], [place] [address] May, Sciatica M54.30 [place] [id number] [place] [address] 18211- 5635 Apr, Sciatica M54.30 [place] [id number] [place] [address] 33566- 3801 Mar, Sciatica M54.30 [facility] [place] [id number] [place] [address] 17138- 9170 Feb, Sciatica M54.30 [facility] [place] [id number] [place] [address] 34696- 9962 Jan, Sciatica M54.30 [facility] [place] [id number] [place] [address] 71255- 2595 Jan, Sciatica M54.30 [facility] [place] [address] [address]- 0812 Dec, Sciatica M54.30 [place] [address] 61361- 9066 18 Dec, 2016 Sciatica M54.30 [place] [id number] [place] [address] 63863- 0819 29 Nov, 2016 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 E78.2 ; Chronic seasonal allergic rhinitis due to other allergen J30.2 and Family history of early CAD Z82.49 [place] [id number] [place] [address] 95917- 3968 Nov, Sciatica M54.30 [place] [id number] [place] [address] 16458- 5884 18 Nov, 2016 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 E78.2 ; Chronic seasonal allergic rhinitis due to other allergen J30.2 ; Family history of early CAD Z82.49 ; Other chronic pain G89.29 and Pain in left shoulder M25.512 [place] [id number] [place] [address] 66688- 3024 11 Nov, 2016 Acute pain of left shoulder M25.512 [place] [id number] [place] [address] 02505- 0229 23 Oct, 2016 Sciatica M54.30 [facility] [place] [id number] [place] [address] 88695- 4540 Oct, [facility] [place] [id number] [place] [address] 68580- 3625 Sep, Sciatica M54.30 [facility] [place] [id number] [place] [address] 49880- 0517 Sep, Acute pain of left shoulder M25.512 [facility] [place] [id number] [place] [address] 32157- 7088 Sep, Acute pain of left shoulder M25.512 [place] [id number] [place] [address] 99109- 0712 Aug, Sciatica M54.30 [place] [id number] [place] [address] 96721- 6840 Aug, Sciatica M54.30 ; Tobacco abuse Z72.0 and Tobacco abuse counseling Z71.6 [place] [id number] [place] [address] 75990- 8794 Aug, Acute pain of left shoulder M25.512 [facility] [id number] [place] [address] 42002 -1824 Aug, Contusion of right shoulder, initial encounter S40.011A ; Acute pain of left shoulder M25.512 and Shortness of breath R06.02 [place] [id number] [place] [address] 43233- 6206 Aug, Lumbago with sciatica, right side M54.41 [place] [id number] [place] [address] 02740- 8074 July, [place] [id number] [place] [address] 50130- 7457 July, Lumbago with sciatica, right side M54.41 [place] [id number] [place] [address] 49806- 0657 Jun, Lumbago with sciatica, right side M54.41 [facility] [place] [id number] [place] [address] 94171- 6220 May, Lumbago with sciatica, right side M54.41 [facility] [id number] [place] [address] 59628 -8142 May, Herpes zoster without complication B02.9 [facility] [id number] [place] [address] 45450 -0077 May, Back pain M54.9 and Acute right-sided low back pain with right-sided sciatica M54.41 [facility] [place] [address] 26318- 4076 Apr, [facility] [place] [address] 14929- 2684 Apr, Lumbago with sciatica, right side M54.41 and Other chronic pain G89.29 [facility] [place] [id number] [place] [address] 44082- 3892 Apr, [facility] [place] [address] 49965- 9519 Mar, [facility] [place] [id number] [place] [address] 17864- 8762 Mar, [facility] [place] [id number] [place] [address] 95168- 8882 Feb, [facility] [id number] [place] [address] 78438 -6289 Jan, Urinary frequency R35.0 [facility] [place] [id number] [place] [address] 10134- 6897 Jan, [facility] [place] [id number] [place] [address] 35234- 7367 Dec, [facility] [place] [id number] [place] [address] 65371- 7945 Oct, [facility] [place] [id number] [place] [address] 28651- 0368 Sep, [facility] [id number] [place] [address] 90303 -5842 Sep, Foreign body in left foot, initial encounter S90.852A [facility] [place] [id number] [place] [address] 74849- 5410 Aug, [facility] [place] [id number] [place] [address] 57113- 2533 July, Sciatica M54.30 [place] [address] 65559- 4614 Jun, [place] [address] 46108- 9839 May, Osteoarthritis M19.90 [place] [id number] [place] [address] 34746- 1688 May, [place] [address] 45013- 0468 May, Pain in right hip M25.551 [facility] [id number] [place] [address] 81774 -5734 May, Tinea corporis B35.4 [place] [id number] [place] [address] 03982- 8861 Apr, Pain in right hip M25.551 [place] [id number] [place] [address] 67393- 4736 Mar, Pain in right hip M25.551 [place] [id number] [place] [address] 44633- 0167 Mar, [facility] [place] [address] 19640- 3357 Feb, Pain in right hip M25.551 [place] [id number] [place] [address] 59380- 0002 13 Jan, 2015 Acute bronchitis, unspecified organism J20.9 and Cough R05 [place] [address], [place] [address]- 4269 Jan, Pain in right hip M25.551 [facility] [place] [id number] [place] [address], [place] [address]- 4196 Dec, Pain in right hip M25.551 [facility] [address], [place] [address]- 8416 Nov, Acute bronchitis 466.0 [facility] [id number], [place] [address]- 0856 Nov, [facility] [id number] [place] [address] 18112- 7859 Oct, [facility] [address], [place] [address]- 5436 Sep, [facility] [place] [id number] [place] [address] 54253- 2092 Aug, [facility] [address], [place] [address]- 8658 July, [facility] [address], [place] [address]- 3050 Jun, [facility] [address], [place] [address]- 8667 Jun, [facility] [address], [place] [address]- 3566 May, [facility] [address], [place] [address]- 7731 May, [facility] [id number], [place] [address]- 0711 Apr, [facility] [address], [place] [address]- 2546 Apr, [facility] [address], [place] [address]- 0036 Apr, [facility] [place] [facility] [address] [id number] [place] [address]- 7300 Apr, 2014 [facility] [place] [facility] [address] [id number] [place] [address]- 0119 Apr, [facility] [place] [facility] [address] [id number] [place] [address]- 8616 Apr, [facility] [place] [facility] [address] [id number] [place] [address]- 0315 Mar, [facility] [place] [facility] [address] [id number] [place] [address]- 9972 Mar, [facility] [place] [facility] [address] [id number] [place] [address]- 5814 Feb, [facility] [place] [facility] [address] [id number] [place] [address]- 5934 Feb, [facility] [place] [facility] [address] [id number] [place] [address]- 8973 Feb, [facility] [place] [facility] [address] [id number] [place] [address]- 6656 Dec, [facility] [place] [facility] [address] [id number] [place] [address]- 6690 Dec, [facility] [place] [facility] [address] [facility] [id number], [place] [address]- 6677 Nov, [facility] [place] [facility] [address] [id number], [place] [address]- 3994 17 Nov, 2013 [facility] [place] [facility] [address] [id number] [place] [address]- 4919 Nov, [facility] [place] [facility] [address] [id number] [place] [address]- 3382 Nov, [facility] [place] [facility] [address] [id number], [place] [address]- 3424 Sep, [facility] [place] [facility] [address] [id number], [place] [address]- 6855 Sep, [facility] [place] [facility] [address] [id number] [place] [address]- 3318 Sep, [facility] [place] [facility] [address] [id number] [place] [address]- 2615 Sep, [facility] [place] [facility] [address] [id number] [place] [address]- 0937 Aug, [facility] [place] [facility] [address] [id number] [place] [address]- 6624 Aug, [facility] [place] [facility] [address] [id number] [place] [address]- 2552 Aug, [facility] [place] [facility] [address] [id number] [place] [address]- 7737 Aug, [facility] [place] [facility] [address] [id number] [place] [address]- 2466 July, [facility] [place] [facility] [address] [id number] [place] [address]- 9156 July, [facility] [place] [facility] [address] [id number] [place] [address]- 7349 Jun, [facility] [place] [facility] [address] [id number] [place] [address]- 6000 Jun, [facility] [place] [facility] [address] [id number] [place] [address]- 9255 Jun, [facility] [place] [facility] [address] [id number] [place] [address]- 2730 Jun, [facility] [place] [facility] [address] [id number] [place] [address]- 9264 Jun, [facility] [place] [facility] [address] [id number] [place] [address]- 8852 Jun, [facility] [place] [facility] [address] [id number] [place] [address]- 5427 Jun, [facility] [place] [facility] [address] [id number] [place] [address]- 1230 Jun, [facility] [place] [facility] [address] [id number] [place] [address]- 4607 May, [facility] [place] [facility] [address] [id number] [place] 5254 May, [facility] [place] [facility] [address] [id number] [place] [address]- 1303 May, [facility] [place] [facility] [address] [id number] [place] [address]- 9530 May, [facility] [place] [facility] [address] [id number] [place] [address]- 9462 May, [facility] [place] [facility] [address] [id number] [place] [address]- 7832 May, [facility] [place] [facility] [address] [id number] [place] [address]- 9456 Apr, [facility] [place] [facility] [address] [id number] [place] [address]- 3991 Apr, [facility] [place] [facility] [address] [id number] [place] [address]- 1115 Apr, [facility] [place] [facility] [address] [id number] [place] [address]- 9655 Apr, [facility] [place] [facility] [address] [id number] [place] [address]- 0378 Mar, [facility] [place] [facility] [address] [id number] [place] [address]- 4051 Mar, [facility] [place] [facility] [address] [id number] [place] [address]- 2113 Mar, [facility] [place] [facility] [address] [id number] [place] [address]- 0539 Mar, [facility] [place] [facility] [address] [id number], [place] [address]- 9026 Mar, [facility] [address] [id number] [place] [address]- 8908 Mar, [facility] [address] [id number] [place] [address]- 9786 Feb, [facility] [address] [id number] [place] [address]- 6316 Feb, [facility] [place] [facility] [address] [id number] [place] [address]- 4888 Feb, [facility] [address] [id number] [place] [address]- 8155 Feb, [facility] [address] [id number] [place] [address]- 1057 Feb, [facility] [address] [id number] [place] [address]- 8848 Feb, [facility] [place] [facility] [address] [id number] [place] [address]- 0934 Feb, [facility] [address] [id number] [place] [address]- 8565 Feb, [facility] [place] [facility] [address] [id number] [place] [address]- 9504 Feb, [facility] [place] [facility] [address] [id number], [place] [address]- 1277 Feb, [facility] [place] [facility] [address] [id number], [place] [address]- 2549 Feb, [facility] [place] [facility] [address] [id number] [place] [address]- 4697 Feb, [facility] [place] [facility] [address] [id number], [place] [address]- 1201 Jan, [facility] [place] [facility] [address] [id number] [place] [address]- 2546 Jan, [facility] [place] [facility] [address] [id number] [place] [address]- 5071 Jan, [facility] [address] [id number] [place] [address]- 8042 Jan, [facility] [place] [facility] [address] [id number] [place] [address]- 3465 Jan, [facility] [address] [id number] [place] [address]- 7818 Jan, [facility] [place] [facility] [address] [id number] [place] [address]- 3435 Jan, [facility] [address] [id number] [place] [address]- 6669 Jan, [facility] [address] [id number] [place] [address]- 7008 Jan, [facility] [address] [id number] [place] [address]- 2152 Jan, [facility] [address] [id number] [place] [address]- 0698 Dec, [facility] [place] [facility] [address] [id number] [place] [address]- 1087 Dec, [facility] [address] [id number] [place] [address]- 8440 Nov, [facility] [place] [facility] [address] [id number] [place] [address]- 2541 Nov, [facility] [place] [facility] [address] [id number] [place] [address]- 2543 Nov, [facility] [place] [facility] [address] [id number] [place] [address]- 7187 05 Nov, 2012 [facility] [place] [facility] [address] [id number] [place] [address]- 3942 Nov, [facility] [place] [facility] [address] [id number] [place] [address] Oct, [facility] [address] [id number] [place] [address] Oct, [facility] [place] [facility] [address] [id number] [place] [address] Oct, [facility] [place] [facility] [address] [id number] [place] [address] Oct, [facility] [place] [facility] [address] [id number] [place] [address] Oct, [facility] [place] [facility] [address] [id number] [place] [address] Sep, [facility] [place] [facility] [address] [id number] [place] [address] Sep, [facility] [place] [facility] [address] [id number] [place] [address] Sep, [facility] [place] [facility] [address] [id number] [place] [address] Sep, [facility] [place] [facility] [address] [id number] [place] [address] Sep, [facility] [place] [facility] [address] [id number] [place] [address] Sep, [facility] [place] [facility] [address] [id number] [place] [address] Aug, [facility] [place] [facility] [address] [id number] [place] [address] Aug, [facility] [place] [facility] [address] [id number] [place] [address] July, [facility] [place] [facility] [address] [id number] [place] [address] July, [facility] [place] [facility] [address] [id number] [place] [address] July, [facility] [place] [facility] [address] [id number] [place] [address] 23 Jun, 2012 [facility] [address] [id number] [place] [address] 18 Jun, 2012 [facility] [place] [facility] [address] [id number] [place] [address] 16 Jun, 2012 [facility] [address] [facility] [id number] [place] [address] Jun, [facility] [address] [id number] [place] [address] May, [facility] [address] [id number] [place] May, [facility] [address] [id number] [place] [address] Apr, [facility] [address] [id number] [place] [address] Apr, [facility] [address] [id number] [place] [address] Apr, [facility] [address] [id number] [place] [address] Apr, [facility] [address] [facility] [id number] [place] [address] Apr, [facility] [address] [id number] [place] [address] Apr, [facility] [address] [facility] [id number] [place] [id number] Apr, [facility] [place] [facility] [address] [id number] [place] [address] Apr, [facility] [place] [facility] [address] [facility] [id number] [place] [address] Mar, [facility] [place] [facility] [address] [facility] [id number] [place] [address] Mar, [facility] [place] [facility] [address] [id number] [place] [address] Mar, [facility] [place] [facility] [address] [id number] [place] [address] Mar, [facility] [place] [facility] [address] [id number] [place] [address] Jan, [facility] [place] [facility] [address] [id number] [place] [address], [place] [address] Jan, [facility] [place] [facility] [address] [id number] [place] [address] Jan, [facility] [place] [facility] [address] [id number] [place] [address] Jan, [facility] [place] [facility] [address] [id number] [place] [address] Jan, [facility] [place] [facility] [address] [id number] [place] [address] Dec, [facility] [place] [facility] [address] [id number] [place] [address] Dec, [facility] [place] [facility] [address] [id number] [place] [address] Dec, [facility] [place] [facility] [address] [id number] [place] [address] Dec, [facility] [place] [facility] [address] [id number] [place] [address] Nov, [facility] [place] [facility] [address] [id number] [place] [address] Oct, [facility] [place] [facility] [address] [id number] [place] [address] Oct, [facility] [place] [facility] [address] [id number] [place] [address] Oct, [facility] [place] [facility] [address] [id number] [place] [address] Oct, [facility] [place] [facility] [address] [id number] [place] [address] Oct, [facility] [place] [facility] [address] [id number] [place] [address] Sep, [facility] [place] [facility] [address] [id number] [place] [address] Sep, [facility] [place] [facility] [address] [id number] [place] [address] Aug, [facility] [place] [facility] [address] [id number] [place] [address] Aug, [facility] [place] [facility] [address] [id number] [place] [address] Aug, [facility] [place] [facility] [address] [id number] [place] [address] Aug, [facility] [place] [facility] [address] [id number] [place] [address] July, [facility] [place] [facility] [address] [id number] [place] [address] Jun, [facility] [place] [facility] [address] [id number] [place] [address] May, [facility] [place] [facility] [address] [id number] [place] [address] May, [facility] [place] [facility] [address] [id number] [place] [address] May, [facility] [place] [facility] [address] [id number] [place] [address] Mar, [facility] [place] [facility] [address] [id number] [place] [address] Feb, [facility] [place] [facility] [address] [id number] [place] [address] Feb, [facility] [place] [facility] [id number], [place] [address] Jan, [facility] [place] [id number], [place] [address] Jan, [facility] [place] [id number], [place] [address] Jan, [facility] [place] [id number], [place] [address] Jan, [facility] [place] [id number], [place] [address] Jan, [facility] [place] [id number] [place] [address] Dec, [facility] [place] [id number] [address] Dec, [facility] [place] [id number] [place] [address] Dec, [facility] [place] [id number] [place] [address] May, [facility] [place] [id number] [address] May, [facility] [place] [id number] [address] Apr, [facility] [place] [id number] [place] [address] Jan, [facility] [place] [id number] [address] Apr, IMMUNIZATIONS No Known Immunizations SOCIAL HISTORY Never Assessed REASON FOR VISIT Controlled Med Refill PLAN OF CARE VITAL SIGNS MEDICATIONS Medication Instructions Dosage Frequency Start Date End Date Duration Status [place] 5-325 MG Orally every 6 hrs PRN 1 tablet Oct, 28 days Active RESULTS No Results PROCEDURES [...]
--- OUTSIDE RECORDS SUMMARY | 2017-12-19 08:09 | XMS REPORT ---
Author Author CHRISTA GLORIA Organization [facility] Address [address] [place] [address] Care Team Providers Care Keypuncher Name Role Phone CHRISTA GLORIA Unavailable PROBLEMS Type Condition ICD9-CM Code VLU37-HN Code Onset Dates Condition Status SNOMED Code Problem Other chronic pain G89.29 Active 66269820 Problem Acute right-sided low back pain with right-sided sciatica M54.41 Active 393327488 Problem Lumbago with sciatica, right side M54.41 Active 830033014 Problem Asymptomatic menopausal state Z78.0 Active 21266706 Problem Episode of recurrent major depressive disorder, unspecified depression episode severity F33.9 Active 613919515 Problem 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 E78.2 Active 993848625 Problem Other chronic pain G89.29 Active 78296753 Problem Anxiety F41.9 Active 82744031 Problem Other organ or system involvement in systemic lupus erythematosus M32.19 Active 43472110 Problem Sciatica M54.30 Active 48677984 Problem Hepatitis C B19.20 Active 35007122 Problem HILARIO (obstructive sleep apnea) G47.33 Active 96232678 Problem 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 Active 396450923 Problem Seborrheic keratoses L82.1 Active 869845253 Problem Urinary frequency R35.0 Active 973745402 ALLERGIES No Information ENCOUNTERS Encounter Location Date Diagnosis [facility] [address] [facility] [id number] [address] Oct, Other organ or system involvement in systemic lupus erythematosus M32.19 [facility] [address] [id number] [address] Sep, Other organ or system involvement in systemic lupus erythematosus M32.19 [facility] [address] [id number] [address] Aug, Anxiety F41.9 [facility] [address] [address] Aug, Other organ or system involvement in systemic lupus erythematosus M32.19 [facility] [id number] [place] [address] 81265- 5604 July, Medicare annual wellness visit, initial Z00.00 ; Anxiety F41.9 ; HILARIO (obstructive sleep apnea) G47.33 ; Hepatitis C B19.20 ; Other chronic pain G89.29 ; Asymptomatic menopausal state Z78.0 and Episode of recurrent major depressive disorder, unspecified depression episode severity F33.9 [facility] [id number] [place] [address] 95093- 5030 July, Anxiety F41.9 [facility] [id number] [place] [address] 64331- 8911 July, Other organ or system involvement in systemic lupus erythematosus M32.19 [facility] [id number] [place] [address] 88114- 3349 July, [facility] [id number] [place] [address] 86419- 8981 Jun, Other organ or system involvement in systemic lupus erythematosus M32.19 ; BMI 40.0-44.9, adult Z68.41 ; Other chronic pain G89.29 and Controlled substance agreement signed Z79.899 [facility] [id number] [place] [address] 04056- 9175 May, Sciatica M54.30 [facility] [address] [id number], [place] [address] 7674 Apr, Sciatica M54.30 [facility] [id number] [place] [address] 19461- 4992 Mar, Sciatica M54.30 [facility] [id number] [place] [address] 87681- 7530 Feb, Sciatica M54.30 [facility] [id number] [place] [address] 82972- 9852 15 Jan, 2017 Sciatica M54.30 [facility] [address] [address]- 3220 14 Jan, 2017 Sciatica M54.30 [facility] [id number] [place] [address] 78552- 2815 19 Dec, 2016 Sciatica M54.30 [facility] [address] [address]77- 1132 Dec, Sciatica M54.30 [facility] [address] 65319- 8211 29 Nov, 2016 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 E78.2 ; Chronic seasonal allergic rhinitis due to other allergen J30.2 and Family history of early CAD Z82.49 [facility] [id number] [place] [address] 44384- 9259 Nov, Sciatica M54.30 [facility] [id number] [place] [address] 50717- 2683 Nov, 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 E78.2 ; Chronic seasonal allergic rhinitis due to other allergen J30.2 ; Family history of early CAD Z82.49 ; Other chronic pain G89.29 and Pain in left shoulder M25.512 [facility] [id number] [place] [address] 39724- 0357 11 Nov, 2016 Acute pain of left shoulder M25.512 [facility] [id number] [place] [address] 30976- 2548 Oct, Sciatica M54.30 [facility] [id number] [place] [address] 15539- 4933 Oct, [facility] [id number] [place] [address] 30196- 5803 Sep, Sciatica M54.30 [facility] [id number] [place] [address] 82773- 7213 Sep, Acute pain of left shoulder M25.512 [facility] [id number] [place] [address] 78099- 2184 Sep, Acute pain of left shoulder M25.512 [facility] [id number] [place] [address] 97414- 0547 Aug, Sciatica M54.30 [facility] [place] [address] 69915- 7759 Aug, Sciatica M54.30 ; Tobacco abuse Z72.0 and Tobacco abuse counseling Z71.6 [facility] [address] [address]95- 2004 Aug, Acute pain of left shoulder M25.512 [facility] [id number] [place] [address] 25063 -4616 Aug, Contusion of right shoulder, initial encounter S40.011A ; Acute pain of left shoulder M25.512 and Shortness of breath R06.02 [facility] [id number] [place] [address] 08013- 7079 Aug, Lumbago with sciatica, right side M54.41 [facility] [id number] [place] [address] 21578- 0566 July, [facility] [id number] [place] [address] 59898- 1373 July, Lumbago with sciatica, right side M54.41 [facility] [id number] [place] [address] 61174- 2701 Jun, Lumbago with sciatica, right side M54.41 [facility] [id number] [place] [address] 44753- 9571 May, Lumbago with sciatica, right side M54.41 [facility] [id number] [place] [address] 78433 -3575 May, Herpes zoster without complication B02.9 [facility] [id number] [place] [address] 98096 -3909 May, Back pain M54.9 and Acute right-sided low back pain with right-sided sciatica M54.41 [facility] [id number] [place] [address] 30740- 8601 Apr, [facility] [address] 33996- 3115 Apr, Lumbago with sciatica, right side M54.41 and Other chronic pain G89.29 [facility] [address] 24793- 4002 Apr, [facility] [id number] [place] [address] 28860- 1523 Mar, [facility] [address] 15433- 6818 Mar, [facility] [id number] [place] [address] 59726- 2279 Feb, [facility] [id number] [place] [address] 04169 -3565 Jan, Urinary frequency R35.0 [facility] [id number] [place] [address] 87518- 1355 Jan, [facility] [id number] [place] [address] 88223- 2762 Dec, [facility] [id number] [place] [address] 75670- 6499 Oct, [facility] [address] 64077- 4490 Sep, [facility] [id number] [place] [address] 87814 -1639 Sep, Foreign body in left foot, initial encounter S90.852A [facility] [address] [id number] [address]- 1676 Aug, [facility] [id number] [place] [address] 04552- 5051 July, Sciatica M54.30 [facility] [id number] [place] [address] 08635- 5052 Jun, [facility] [id number] [place] [address] 11507- 5303 May, Osteoarthritis M19.90 [facility] [id number] [place] [address] 10296- 6916 May, [facility] [id number] [place] [address] 35376- 0019 May, Pain in right hip M25.551 [facility] [id number] [place] [address] 74485 -2662 May, Tinea corporis B35.4 [facility] [id number] [place] [address] 40329- 6317 Apr, Pain in right hip M25.551 [facility] [id number] [place] [address] 24262- 9303 Mar, Pain in right hip M25.551 [place] [address] [place] [address] 73872- 8521 Mar, [facility] [id number] [place] [address] 69836- 2581 Feb, Pain in right hip M25.551 [facility] [id number] [place] [address] 50422- 5638 13 Jan, 2015 Acute bronchitis, unspecified organism J20.9 and Cough R05 [facility] [address], [place] [address]- 3451 11 Jan, 2015 Pain in right hip M25.551 [facility] [id number] [address]- 8915 Dec, Pain in right hip M25.551 [facility] [address] [id number] [place] [address]- 2249 Nov, Acute bronchitis 466.0 [facility] [address] [id number] [place] [address]- 0086 Nov, [facility] [address] [id number], [place] [address]- 8401 Oct, [facility] [address] [id number] [place] [address]- 8816 Sep, [facility] [address] [id number], [place] [address]- 1379 Aug, [facility] [id number] [place] [address]- 6981 July, [facility] [address] [id number], [place] [address]- 8140 Jun, [facility] [address] [id number] [place] [address]- 3529 Jun, [facility] [address] [id number], [place] [address]- 5794 May, [facility] [place] [facility] [id number], [place] [address]- 6129 May, [facility] [place] [facility] [address] [facility] [id number], [place] [address]- 7719 Apr, [facility] [place] [facility] [address] [id number] [place] [address]- 3536 Apr, [facility] [place] [facility] [address] [facility] [id number] 2431 Apr, [facility] [place] [facility] [address] [id number] 0696 Apr, [facility] [place] [facility] [address] [facility] [id number] [place] [address]- 9416 06 Apr, 2014 [facility] [address] [id number] [place] [address]- 6913 Apr, [facility] [place] [facility] [address] [id number] [place] [address]- 4647 Mar, [facility] [address] [id number] [place] [address]- 6838 Mar, [facility] [place] [facility] [address] [id number] [place] [address]- 1910 Feb, [facility] [place] [facility] [address] [id number] [place] [address]- 7671 Feb, [facility] [place] [facility] [address] [id number] [place] [address]- 4367 Feb, [facility] [place] [facility] [address] [id number] [place] [address]- 3874 Dec, [facility] [place] [facility] [address] [id number] [place] [address]- 5645 Dec, [facility] [place] [facility] [address] [id number] [place] [address]- 0055 Nov, [facility] [place] [facility] [address] [id number] [place] [address]- 4125 Nov, [facility] [place] [facility] [address] [id number] [place] [address]- 9620 Nov, [facility] [place] [facility] [address] [id number] [place] [address]- 3631 Nov, [facility] [place] [facility] [address] [id number] [place] [address]- 9259 Sep, [facility] [place] [facility] [address] [id number] [place] [address]- 8863 Sep, [facility] [place] [facility] [address] [id number] [place] [address]- 1693 Sep, [facility] [place] [facility] [address] [id number] [place] [address]- 8600 Sep, [facility] [place] [facility] [address] [id number] [place] [address]- 9494 Aug, [facility] [place] [facility] [address] [id number] [place] [address]- 4182 Aug, [facility] [place] [facility] [address] [id number] [place] [address]- 2199 Aug, [facility] [place] [facility] [address] [id number] [place] [address]- 7158 Aug, [facility] [place] [facility] [address] [id number] [place] [address]- 2519 July, [facility] [place] [facility] [address] [id number] [place] [address]- 6266 July, [facility] [place] [facility] [address] [id number] [place] [address]- 3039 Jun, [facility] [place] [facility] [address] [id number] [place] [address]- 4999 Jun, [facility] [place] [facility] [address] [id number] [place] [address]- 2154 Jun, [facility] [place] [facility] [address] [id number] [place] [address]- 8182 Jun, [facility] [place] [facility] [address] [id number] [place] [address]- 6881 Jun, [facility] [place] [facility] [address] [id number] [place] [address]- 1155 Jun, [facility] [place] [facility] [address] [id number] [place] [address]- 6135 Jun, [facility] [place] [facility] [address] [id number] [place] 8585 Jun, [facility] [place] [facility] [address] [id number] [place] [address]- 8022 May, [facility] [place] [facility] [address] [id number] [place] [address]- 9068 May, [facility] [place] [facility] [address] [id number] [place] [address]- 3943 May, [facility] [place] [facility] [address] [id number] [place] [address]- 6293 May, [facility] [place] [facility] [address] [id number] [place] [address]- 4608 May, [facility] [place] [facility] [address] [id number] [place] [address]- 0935 May, [facility] [place] [facility] [address] [id number] [place] [address]- 2369 Apr, [facility] [place] [facility] [address] [id number] [place] [address]- 5740 Apr, [facility] [place] [facility] [address] [id number] [place] [address]- 9313 Apr, [facility] [place] [facility] [address] [id number] [place] [address]- 7199 Apr, [facility] [place] [facility] [address] [facility] [id number] [place] [address]- 6635 Mar, [facility] [place] [facility] [address] [id number] [place] [address]- 7315 Mar, [facility] [place] [facility] [address] [id number] [place] [address]- 2845 Mar, [facility] [place] [facility] [address] [id number] [place] [address]- 2488 Mar, [facility] [place] [facility] [address] [id number] [place] [address]- 5732 Mar, [facility] [place] [facility] [address] [facility] [id number], [place] [address]- 9364 Mar, [facility] [place] [facility] [address] [id number] [place] [address]- 3189 Feb, [facility] [address] [id number] [place] [address]- 4907 Feb, [facility] [place] [facility] [address] [id number] [place] [address]- 7822 Feb, [facility] [address] [id number] [place] [address]- 3984 Feb, [facility] [address] [id number] [place] [address]- 1535 Feb, [facility] [place] [facility] [address] [id number] [place] [address]- 1716 Feb, [facility] [address] [id number] [place] [address]- 3386 Feb, [facility] [address] [id number] [place] [address]- 9103 Feb, [facility] [address] [id number] [place] 2050 Feb, [facility] [address] [id number] [place] [address]- 4876 Feb, [facility] [address] [id number] [place] [address]- 4888 Feb, [facility] [place] [facility] [address] [id number] [place] [address]- 8370 Feb, [facility] [place] [facility] [address] [id number] [place] [address]- 4328 Jan, [facility] [place] [facility] [address] [id number] [place] [address]- 1365 Jan, [facility] [place] [facility] [address] [id number] [place] [address]- 4808 Jan, [facility] [place] [facility] [address] [id number] [place] [address]- 2077 Jan, [facility] [place] [facility] [address] [id number] [place] 7350 Jan, [facility] [place] [facility] [address] [id number] [place] [address]- 6181 Jan, [facility] [place] [facility] [address] [id number] [place] [address]- 5259 Jan, [facility] [place] [facility] [address] [id number] [place] [address]- 9168 Jan, [facility] [place] [facility] [address] [id number] [place] 7512 Jan, [facility] [place] [facility] [address] [id number] [place] [address]- 3865 Jan, [facility] [place] [facility] [address] [id number] [place] [address]- 7630 Dec, [facility] [place] [facility] [address] [id number] [place] [address]- 9950 Dec, [facility] [place] [facility] [address] [id number] [place] [address]- 8910 Nov, [facility] [place] [facility] [address] [id number] [place] [address]- 6811 Nov, [facility] [place] [facility] [address] [id number], [place] [address]- 9980 Nov, [facility] [place] [facility] [address] [id number], [place] [address]- 7278 05 Nov, 2012 [facility] [place] [facility] [address] [id number] [place] [address]- 2239 Nov, [facility] [place] [facility] [address] [id number] [place] [address]- 5491 Oct, [facility] [place] [facility] [address] [id number] [place] [address]- 2273 Oct, [facility] [place] [facility] [address] [id number] [place] [address]- 0387 Oct, [facility] [address] [id number] [place] [address] Oct, [facility] [address] [id number] [place] [address] Oct, [facility] [address] [id number] [place] [address] Sep, [facility] [address] [id number] [place] [address] Sep, [facility] [address] [id number] [place] [address] Sep, [facility] [address] [id number] [place] [address] Sep, [facility] [address] [id number] [place] [address] Sep, [facility] [address] [id number] [place] [address] Sep, [facility] [address] [id number] [place] [address] Aug, [facility] [address] [id number] [place] [address] Aug, [facility] [address] [id number] [place] [address] July, [facility] [address] [id number] [place] [address] July, [facility] [address] [id number] [place] [address] July, [facility] [address] [id number] [place] [address] Jun, [facility] [address] [id number] [place] [address] Jun, [facility] [place] [facility] [address] [id number] [place] [address]- [address] 16 Jun, 2012 [facility] [place] [facility] [address] [id number] [place] [address] Jun, [facility] [place] [facility] [address] [id number] [place] [address] May, [facility] [place] [facility] [address] [id number] [place] [address] May, [facility] [place] [facility] [address] [id number] [place] [address] Apr, [facility] [place] [facility] [address] [id number] [place] [address] Apr, [facility] [place] [facility] [address] [id number] [place] [address]- [address] Apr, [facility] [place] [facility] [address] [id number], [place] [address] Apr, [facility] [place] [facility] [address] [id number] [place] [address]- [address] Apr, [facility] [place] [facility] [address] [id number], [place] [address] Apr, [facility] [place] [facility] [address] [id number] [id number] Apr, [facility] [place] [facility] [address] [id number], [place] [address] Apr, [facility] [place] [facility] [address] [id number] [place] [address] Mar, [facility] [place] [facility] [address] [id number], [place] [address] Mar, [facility] [place] [facility] [address] [id number] [place] [address] Mar, [facility] [place] [facility] [address] [id number] [place] [address] Mar, [facility] [place] [facility] [address] [id number] [place] [address] Jan, [facility] [place] [facility] [address] [id number] [place] [address] Jan, [facility] [place] [facility] [address] [id number] [place] [address] Jan, [facility] [place] [facility] [address] [id number] [place] [address] Jan, [facility] [place] [facility] [address] [id number] [place] [address] Jan, [facility] [place] [facility] [address] [id number] [place] [address] Dec, [facility] [place] [facility] [address] [id number] [place] [address] Dec, [facility] [place] [facility] [address] [id number] [place] [address] Dec, [facility] [place] [facility] [address] [id number] [place] [address] Dec, [facility] [place] [facility] [address] [id number] [place] [address] Nov, [facility] [place] [facility] [address] [id number] [place] [address]- [address] Oct, [facility] [place] [facility] [address] [id number] [place] [address] 39[address] Oct, [facility] [place] [facility] [address] [id number] [place] [address] Oct, [facility] [place] [facility] [address] [id number] [place] [address] Oct, [facility] [place] [facility] [address] [id number] [place] [address] Oct, [facility] [place] [facility] [address] [id number] [place] [address] Sep, [facility] [place] [facility] [address] [id number] [place] [address]- [id number] Sep, [facility] [place] [facility] [address] [id number] [place] [address] Aug, [facility] [place] [facility] [address] [id number] [place] [address] Aug, [facility] [address] [id number] [place] [address] Aug, [facility] [place] [facility] [address] [id number] [place] [address] Aug, [facility] [address] [id number] [place] [address] July, [facility] [address] [id number] [place] [address] Jun, [facility] [place] [facility] [address] [id number] [place] [address] May, [facility] [place] [facility] [address] [id number] [place] [address] May, [facility] [place] [facility] [address] [id number] [place] [address] May, [facility] [place] [facility] [address] [id number] [place] [address] Mar, [facility] [place] [facility] [address] [id number] [place] [address] Feb, [facility] [place] [facility] [address] [id number] [place] [address] Feb, [facility] [place] [facility] [address] [id number] [place] [address] Jan, [facility] [place] [facility] [address] [id number] [address] Jan, [facility] [id number] [address] Jan, [facility] [id number] [address] Jan, [facility] [id number] [address] Jan, [facility] [id number] [address] Dec, [facility] [id number] [address] Dec, [facility] [id number] [place] [address] Dec, [facility] [id number] [place] [address] May, [facility] [id number] [place] [address] May, [facility] [id number] [place] [address] Apr, [facility] [id number] [place] [address] Jan, [facility] [id number] [address] Apr, IMMUNIZATIONS No Known Immunizations SOCIAL HISTORY Never Assessed REASON FOR VISIT Controlled Med Refill PLAN OF CARE VITAL SIGNS MEDICATIONS Medication Instructions Dosage Frequency Start Date End Date Duration Status Krebs 5-325 MG Orally every 6 hrs PRN 1 tablet Sep, 28 days Active RESULTS No Results PROCEDURES [...]
--- OUTSIDE RECORDS SUMMARY | 2017-12-19 08:09 | XMS REPORT ---
Author Author CHRISTA GLORIA Organization [facility] Address [address] [place] [address] Care Team Providers Care Trauma Therapist Name Role Phone CHRISTA GLORIA Unavailable PROBLEMS Type Condition ICD9-CM Code BCT09-RA Code Onset Dates Condition Status SNOMED Code Problem Other chronic pain G89.29 Active 85767522 Problem Acute right-sided low back pain with right-sided sciatica M54.41 Active 683413543 Problem Lumbago with sciatica, right side M54.41 Active 182717601 Problem Asymptomatic menopausal state Z78.0 Active 22020433 Problem Episode of recurrent major depressive disorder, unspecified depression episode severity F33.9 Active 162611397 Problem 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 E78.2 Active 949631728 Problem Other chronic pain G89.29 Active 69448199 Problem Anxiety F41.9 Active 82952174 Problem Other organ or system involvement in systemic lupus erythematosus M32.19 Active 17754631 Problem Sciatica M54.30 Active 88069572 Problem Hepatitis C B19.20 Active 88029807 Problem HILARIO (obstructive sleep apnea) G47.33 Active 96861081 Problem 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 [address] [facility] [id number] [address] Oct, Other organ or system involvement in systemic lupus erythematosus M32.19 [facility] [address] [id number] [address] Sep, Other organ or system involvement in systemic lupus erythematosus M32.19 [facility] [address] [id number] [address] Aug, Anxiety F41.9 [facility] [address] [address] Aug, Other organ or system involvement in systemic lupus erythematosus M32.19 [facility] [id number] [place] [address] 81113- 0832 July, Medicare annual wellness visit, initial Z00.00 ; Anxiety F41.9 ; HILARIO (obstructive sleep apnea) G47.33 ; Hepatitis C B19.20 ; Other chronic pain G89.29 ; Asymptomatic menopausal state Z78.0 and Episode of recurrent major depressive disorder, unspecified depression episode severity F33.9 [place] [facility] [id number] [place] [address] 44411- 1933 July, Anxiety F41.9 [facility] [id number] [place] [address] 84788- 9971 July, Other organ or system involvement in systemic lupus erythematosus M32.19 [place] [id number] [place] [address] 53673- 0891 July, [facility] [id number] [place] [address] 66245- 7275 Jun, Other organ or system involvement in systemic lupus erythematosus M32.19 ; BMI 40.0-44.9, adult Z68.41 ; Other chronic pain G89.29 and Controlled substance agreement signed Z79.899 [facility] [facility] [id number] [place] [address] 41898- 6834 May, Sciatica M54.30 [facility] [address] [id number] [address] Apr, Sciatica M54.30 [place] [facility] [id number] [place] [address] 31554- 6139 Mar, Sciatica M54.30 [place] [facility] [id number] [place] [address] 27524- 9575 Feb, Sciatica M54.30 [facility] [facility] [id number] [place] [address] 68867- 5259 15 Jan, 2017 Sciatica M54.30 [facility] [address] [address]- 1449 14 Jan, 2017 Sciatica M54.30 [facility] [facility] [id number] [place] [address] 33856- 7125 19 Dec, 2016 Sciatica M54.30 [facility] [facility] [address] 34956- 6046 Dec, Sciatica M54.30 [facility] [facility] [address] 57920- 2832 29 Nov, 2016 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 E78.2 ; Chronic seasonal allergic rhinitis due to other allergen J30.2 and Family history of early CAD Z82.49 [facility] [facility] [id number] [place] [address] 18679- 8017 Nov, Sciatica M54.30 [facility] [facility] [id number] [place] [address] 13871- 3223 Nov, 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 E78.2 ; Chronic seasonal allergic rhinitis due to other allergen J30.2 ; Family history of early CAD Z82.49 ; Other chronic pain G89.29 and Pain in left shoulder M25.512 [facility] [facility] [id number] [place] [address] 81255- 9855 11 Nov, 2016 Acute pain of left shoulder M25.512 [facility] [id number] [place] [address] 98441- 2545 Oct, Sciatica M54.30 [facility] [facility] [id number] [place] [address] 60373- 3568 Oct, [place] [facility] [id number] [place] [address] 80008- 2658 Sep, Sciatica M54.30 [facility] [id number] [place] [address] 42150- 2317 Sep, Acute pain of left shoulder M25.512 [facility] [id number] [place] [address] 94544- 8927 Sep, Acute pain of left shoulder M25.512 [place] [facility] [id number] [place] [address] 79347- 9711 Aug, Sciatica M54.30 [facility] [facility] [address] 47045- 0029 Aug, Sciatica M54.30 ; Tobacco abuse Z72.0 and Tobacco abuse counseling Z71.6 [facility] [facility] [address] 05958- 7151 Aug, Acute pain of left shoulder M25.512 [facility] [id number] [place] [address] 51508 -1624 Aug, Contusion of right shoulder, initial encounter S40.011A ; Acute pain of left shoulder M25.512 and Shortness of breath R06.02 [place] [facility] [id number] [place] [address] 97150- 1439 Aug, Lumbago with sciatica, right side M54.41 [place] [id number] [place] [address] 22652- 2395 July, [place] [facility] [id number] [place] [address] 18869- 6755 July, Lumbago with sciatica, right side M54.41 [facility] [facility] [id number] [place] [address] 06389- 9509 Jun, Lumbago with sciatica, right side M54.41 [facility] [id number] [place] [address] 46455- 8638 May, Lumbago with sciatica, right side M54.41 [facility] [id number] [place] [address] 04474 -3817 May, Herpes zoster without complication B02.9 [facility] [id number] [place] [address] 28424 -6278 May, Back pain M54.9 and Acute right-sided low back pain with right-sided sciatica M54.41 [facility] [id number] [place] [address] 44859- 7830 Apr, [facility] [address] 03266- 1337 Apr, Lumbago with sciatica, right side M54.41 and Other chronic pain G89.29 [facility] [address] 10871- 3225 Apr, [facility] [id number] [place] [address] 55117- 0317 Mar, [facility] [address] 22660- 8812 Mar, [facility] [id number] [place] [address] 67435- 8115 Feb, [facility] [id number] [place] [address] 95471 -6568 Jan, Urinary frequency R35.0 [facility] [id number] [place] [address] 45089- 7550 Jan, [facility] [id number] [place] [address] 74209- 8827 Dec, [facility] [id number] [place] [address] 26985- 7896 Oct, [facility] [address] 19556- 0627 Sep, [facility] [id number] [place] [address] 42664 -8109 Sep, Foreign body in left foot, initial encounter S90.852A [facility] [address] [id number] [address]- 3092 Aug, [facility] [id number] [place] [address] 39860- 4725 July, Sciatica M54.30 [facility] [id number] [place] [address] 74405- 6272 Jun, [facility] [id number] [place] [address] 51040- 4527 May, Osteoarthritis M19.90 [facility] [id number] [place] [address] 94985- 1771 May, [facility] [id number] [place] [address] 50098- 4291 May, Pain in right hip M25.551 [facility] [id number] [place] [address] 14657 -7327 May, Tinea corporis B35.4 [facility] [id number] [place] [address] 83471- 5463 Apr, Pain in right hip M25.551 [place] [id number] [place] [address] 13651- 3455 Mar, Pain in right hip M25.551 [place] [address] [place] [address] 00904- 0349 Mar, [facility] [id number] [place] [address] 10059- 4248 Feb, Pain in right hip M25.551 [facility] [id number] [place] [address] 27943- 7960 13 Jan, 2015 Acute bronchitis, unspecified organism J20.9 and Cough R05 [facility] [address] [address]- 0632 11 Jan, 2015 Pain in right hip M25.551 [facility] [address] [id number] [address]- 6052 Dec, Pain in right hip M25.551 [facility] [address] [id number] [place] [address]- 9430 Nov, Acute bronchitis 466.0 [facility] [address] [id number] [place] [address]- 3826 Nov, [facility] [address] [id number] [address]- 9627 Oct, [facility] [address] [id number] [place] [address]- 5388 Sep, [facility] [address] [id number] [address]- 5201 Aug, [facility] [id number] [place] [address]- 5029 July, [facility] [id number] [address]- 6043 Jun, [facility] [address] [id number] [place] [address]- 6214 Jun, [facility] [id number] [address]- 1347 May, [facility] [place] [facility] [id number] [address]- 7852 May, [facility] [place] [facility] [address] [facility] [id number] [address]- 3988 Apr, [facility] [place] [facility] [address] [id number] [place] [address]- 4326 Apr, [facility] [place] [facility] [address] [facility] [id number] 2262 Apr, [facility] [place] [facility] [id number] 0876 Apr, [facility] [place] [facility] [address] [facility] [id number] [place] [address]- 4750 06 Apr, 2014 [facility] [address] [id number] [place] [address]- 0645 Apr, [facility] [place] [facility] [address] [id number] [place] [address]- 4661 Mar, [facility] [address] [id number] [place] [address]- 0442 Mar, [facility] [place] [facility] [address] [id number] [place] [address]- 8337 Feb, [facility] [place] [facility] [address] [id number] [place] [address]- 5002 Feb, [facility] [place] [facility] [address] [id number] [place] [address]- 7970 Feb, [facility] [place] [facility] [address] [id number] [place] [address]- 2039 Dec, [facility] [place] [facility] [address] [id number] [place] [address]- 9699 Dec, [facility] [place] [facility] [address] [id number] [place] [address]- 5912 Nov, [facility] [place] [facility] [address] [id number] [place] [address]- 2617 Nov, [facility] [place] [facility] [address] [id number] [place] [address]- 9943 Nov, [facility] [place] [facility] [address] [id number] [place] [address]- 7681 Nov, [facility] [place] [facility] [address] [id number] [place] [address]- 0152 Sep, [facility] [place] [facility] [address] [id number] [place] [address]- 4488 Sep, [facility] [place] [facility] [address] [id number] [place] [address]- 8308 Sep, [facility] [place] [facility] [address] [id number] [place] [address]- 2170 Sep, [facility] [place] [facility] [address] [id number] [place] [address]- 1145 Aug, [facility] [place] [facility] [address] [id number] [place] [address]- 1355 Aug, [facility] [place] [facility] [address] [id number] [place] [address]- 8829 Aug, [facility] [place] [facility] [address] [id number] [place] [address]- 7267 Aug, [facility] [place] [facility] [address] [id number] [place] [address]- 0462 July, [facility] [place] [facility] [address] [id number] [place] [address]- 6014 July, [facility] [place] [facility] [address] [id number] [place] [address]- 7952 Jun, [facility] [place] [facility] [address] [id number] [place] [address]- 3430 Jun, [facility] [place] [facility] [address] [id number] [place] [address]- 9749 Jun, [facility] [place] [facility] [address] [id number] [place] [address]- 2757 Jun, [facility] [place] [facility] [address] [id number] [place] [address]- 3941 Jun, [facility] [place] [facility] [address] [id number] [place] [address]- 4118 Jun, [facility] [place] [facility] [address] [id number] [place] [address]- 4977 Jun, [facility] [place] [facility] [address] [id number] [place] 3266 Jun, [facility] [place] [facility] [address] [id number] [place] [address]- 2397 May, [facility] [place] [facility] [address] [id number] [place] [address]- 1852 May, [facility] [place] [facility] [address] [id number] [place] [address]- 7006 May, [facility] [place] [facility] [address] [id number] [place] [address]- 8486 May, [facility] [place] [facility] [address] [id number] [place] [address]- 3481 May, [facility] [place] [facility] [address] [id number] [place] [address]- 9466 May, [facility] [place] [facility] [address] [id number] [place] [address]- 5493 Apr, [facility] [place] [facility] [address] [id number] [place] [address]- 1986 Apr, [facility] [place] [facility] [address] [id number] [place] [address]- 4352 Apr, [facility] [place] [facility] [address] [id number] [place] [address]- 2858 Apr, [facility] [place] [facility] [address] [facility] [id number] [place] [address]- 4367 Mar, [facility] [place] [facility] [address] [id number] [place] [address]- 8979 Mar, [facility] [place] [facility] [address] [id number] [place] [address]- 9519 Mar, [facility] [place] [facility] [address] [id number] [place] [address]- 1133 Mar, [facility] [place] [facility] [address] [id number] [place] [address]- 7190 Mar, [facility] [place] [facility] [address] [facility] [id number] [address]- 2473 Mar, [facility] [place] [facility] [address] [id number] [place] [address]- 2407 Feb, [facility] [address] [id number] [place] [address]- 2292 Feb, [facility] [place] [facility] [address] [id number] [place] [address]- 7547 Feb, [facility] [address] [id number] [place] [address]- 3524 Feb, [facility] [address] [id number] [place] [address]- 1544 Feb, [facility] [place] [facility] [address] [id number] [place] [address]- 5705 Feb, [facility] [address] [id number] [place] [address]- 4185 Feb, [facility] [address] [id number] [place] [address]- 8188 Feb, [facility] [address] [id number] [place] 0949 Feb, [facility] [address] [id number] [place] [address]- 8881 Feb, [facility] [address] [id number] [place] [address]- 5270 Feb, [facility] [place] [facility] [address] [id number] [place] [address]- 3647 Feb, [facility] [place] [facility] [address] [id number] [place] [address]- 7851 Jan, [facility] [place] [facility] [address] [id number] [place] [address]- 6792 Jan, [facility] [place] [facility] [address] [id number] [place] [address]- 5698 Jan, [facility] [place] [facility] [address] [id number] [place] [address]- 4510 Jan, [facility] [place] [facility] [address] [id number] [place] 2325 Jan, [facility] [place] [facility] [address] [id number] [place] [address]- 4997 Jan, [facility] [place] [facility] [address] [id number] [place] [address]- 5240 Jan, [facility] [place] [facility] [address] [id number] [place] [address]- 1271 Jan, [facility] [place] [facility] [address] [id number] [place] 5843 Jan, [facility] [place] [facility] [address] [id number] [place] [address]- 0262 Jan, [facility] [place] [facility] [address] [id number] [place] [address]- 2276 Dec, [facility] [place] [facility] [address] [id number] [place] [address]- 0053 Dec, [facility] [place] [facility] [address] [id number] [place] [address]- 0191 Nov, [facility] [place] [facility] [address] [id number] [place] [address]- 1353 Nov, [facility] [place] [facility] [address] [id number] [place] [address]- 6997 Nov, [facility] [place] [facility] [address] [id number] [place] [address]- 7400 05 Nov, 2012 [facility] [place] [facility] [address] [id number] [place] [address]- 7412 Nov, [facility] [place] [facility] [address] [id number] [place] [address]- 4997 Oct, [facility] [place] [facility] [address] [id number] [place] [address]- 3970 Oct, [facility] [place] [facility] [address] [id number] [place] [address] Oct, [facility] [address] [id number] [place] [address] Oct, [facility] [address] [id number] [place] [address] Oct, [facility] [address] [id number] [place] [address] Sep, [facility] [address] [id number] [place] [address] Sep, [facility] [address] [id number] [place] [address] Sep, [facility] [address] [id number] [place] [address] Sep, [facility] [address] [id number] [place] [address] Sep, [facility] [address] [id number] [place] [address] Sep, [facility] [address] [id number] [place] [address] Aug, [facility] [address] [id number] [place] [address] Aug, [facility] [address] [id number] [place] [address] July, [facility] [address] [id number] [place] [address] July, [facility] [address] [id number] [place] [address] July, [facility] [address] [id number] [place] [address] Jun, [facility] [address] [id number] [place] [address] Jun, [facility] [place] [facility] [address] [id number] [place] [address]- [address] 16 Jun, 2012 [facility] [place] [facility] [address] [id number] [place] [address] Jun, [facility] [place] [facility] [address] [id number] [place] [address] May, [facility] [place] [facility] [address] [id number] [place] [address] May, [facility] [place] [facility] [address] [id number] [place] [address] Apr, [facility] [place] [facility] [address] [id number] [place] [address] Apr, [facility] [place] [facility] [address] [id number] [place] [address] Apr, [facility] [place] [facility] [address] [id number] [address] Apr, [facility] [place] [facility] [address] [id number] [place] [address] Apr, [facility] [place] [facility] [address] [id number] [address] Apr, [facility] [place] [facility] [address] [id number] [id number] Apr, [facility] [place] [facility] [address] [id number] [place] [address] Apr, [facility] [place] [facility] [address] [id number] [place] [address] Mar, [facility] [place] [facility] [address] [id number] [place] [address] Mar, [facility] [place] [facility] [address] [id number] [place] [address] Mar, [facility] [place] [facility] [address] [id number] [place] [address] Mar, [facility] [place] [facility] [address] [id number] [place] [address] Jan, [facility] [place] [facility] [address] [id number] [place] [address] Jan, [facility] [place] [facility] [address] [id number] [place] [address] Jan, [facility] [place] [facility] [address] [id number] [place] [address] Jan, [facility] [place] [facility] [address] [id number] [place] [address] Jan, [facility] [place] [facility] [address] [id number] [place] [address] Dec, [facility] [place] [facility] [address] [id number] [place] [address] Dec, [facility] [place] [facility] [address] [id number] [place] [address] Dec, [facility] [place] [facility] [address] [id number] [place] [address] Dec, [facility] [place] [facility] [address] [id number] [place] [address] Nov, [facility] [place] [facility] [address] [id number] [place] [address] Oct, [facility] [place] [facility] [address] [id number] [place] [address] Oct, [facility] [place] [facility] [address] [id number] [place] [address]- [address] Oct, [facility] [place] [facility] [address] [id number] [place] [address] Oct, [facility] [place] [facility] [address] [id number] [place] [address] Oct, [facility] [place] [facility] [address] [id number] [place] [address]- [address] Sep, [facility] [place] [facility] [address] [id number] [place] [address] Sep, [facility] [place] [facility] [address] [address] [id number] [place] [address] Aug, [facility] [place] [facility] [address] [id number] [place] [address] Aug, [facility] [address] [id number] [place] [address] Aug, [facility] [place] [facility] [address] [id number] [place] [address] Aug, [facility] [address] [id number] [place] [address] July, [facility] [address] [id number] [place] [address] Jun, [facility] [place] [facility] [address] [id number] [place] [address] May, [facility] [place] [facility] [address] [id number] [place] [address] May, [facility] [place] [facility] [address] [id number] [place] [address] May, [facility] [place] [facility] [address] [id number] [place] [address] Mar, [facility] [place] [facility] [address] [id number] [place] [address] Feb, [facility] [place] [facility] [address] [id number] [place] [address] Feb, [facility] [place] [facility] [address] [id number] [place] [address] Jan, [facility] [place] [facility] [address] [id number] [place] [address] Jan, [facility] [id number] [address] Jan, [facility] [id number] [address] Jan, [facility] [address] [address] Jan, [facility] [id number] [address] Dec, [facility] [id number] [address] Dec, [facility] [id number] [place] [address] Dec, [facility] [id number] [place] [address] May, [facility] [id number] [place] [address] May, [facility] [address] [address] Apr, [facility] [address] [address] Jan, [facility] [id number] [address] Apr, IMMUNIZATIONS No Known Immunizations SOCIAL HISTORY Never Assessed REASON FOR VISIT Controlled Med Refill PLAN OF CARE VITAL SIGNS MEDICATIONS Medication Instructions Dosage Frequency Start Date End Date Duration Status Stewart 5-325 MG Orally every 6 hrs PRN 1 tablet Aug, 28 days Active RESULTS No Results PROCEDURES [...]
--- OUTSIDE RECORDS SUMMARY | 2017-12-19 08:10 | XMS REPORT ---
Author Author DEJA ZHONG [facility] IN [facility] Address [address] [place] [address] Care Team Providers Care Director Clinical Operations Name Role Phone DEJA ZHONG Unavailable PROBLEMS Type Condition ICD9-CM Code XBN16-XA Code Onset Dates Condition Status SNOMED Code Problem Other chronic pain G89.29 Active 43715901 Problem Acute right-sided low back pain with right-sided sciatica M54.41 Active 579743108 Problem Lumbago with sciatica, right side M54.41 Active 175460884 Problem Asymptomatic menopausal state Z78.0 Active 98567687 Problem Episode of recurrent major depressive disorder, unspecified depression episode severity F33.9 Active 104947525 Problem 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 E78.2 Active 495786411 Problem Other chronic pain G89.29 Active 80195928 Problem Anxiety F41.9 Active 80108439 Problem Other organ or system involvement in systemic lupus erythematosus M32.19 Active 46628117 Problem Sciatica M54.30 Active 95450797 Problem Hepatitis C B19.20 Active 77248670 Problem HILARIO (obstructive sleep apnea) G47.33 Active 70851444 Problem 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 Active 357644168 Problem Seborrheic keratoses L82.1 Active 550655419 Problem Urinary frequency R35.0 Active 974740193 ALLERGIES Substance Reaction Event Type Date Status Cymbalta drowsiness Drug Allergy July, Active ENCOUNTERS Encounter Location Date Diagnosis [facility] [id number], [place] [address] Oct, Other organ or system involvement in systemic lupus erythematosus M32.19 [facility] [id number] [address] Sep, Other organ or system involvement in systemic lupus erythematosus M32.19 [facility] [id number], [place] [address] Aug, Anxiety F41.9 [facility] [id number] [place] [address] 74989- 6070 Aug, Other organ or system involvement in systemic lupus erythematosus M32.19 [facility] [id number] [place] [address] 41395- 7268 July, Medicare annual wellness visit, initial Z00.00 ; Anxiety F41.9 ; HILAROI (obstructive sleep apnea) G47.33 ; Hepatitis C B19.20 ; Other chronic pain G89.29 ; Asymptomatic menopausal state Z78.0 and Episode of recurrent major depressive disorder, unspecified depression episode severity F33.9 [facility] [id number] [place] [address] 17682- 8839 July, Anxiety F41.9 [facility] [id number] [place] [address] 62936- 1632 July, Other organ or system involvement in systemic lupus erythematosus M32.19 [facility] [id number] [place] [address] 94277- 3893 July, [facility] [id number] [place] [address] 01534- 6344 Jun, Other organ or system involvement in systemic lupus erythematosus M32.19 ; BMI 40.0-44.9, adult Z68.41 ; Other chronic pain G89.29 and Controlled substance agreement signed Z79.899 [facility] [id number] [place] [address] 25350- 3100 May, Sciatica M54.30 [facility] [id number] [place] [address] 03919- 5584 Apr, Sciatica M54.30 [facility] [id number] [place] [address] 10450- 2112 Mar, Sciatica M54.30 [facility] [id number] [place] [address] 67158- 6753 13 Feb, 2017 Sciatica M54.30 [facility] [id number] [place] [address] 26386- 4188 15 Jan, 2017 Sciatica M54.30 [facility] [id number] [place] [address] 62655- 5007 14 Jan, 2017 Sciatica M54.30 [facility] [id number] [place] [address] 97110- 0317 19 Dec, 2016 Sciatica M54.30 [facility] [id number] [place] [address] 64356- 7455 18 Dec, 2016 Sciatica M54.30 [facility] [id number] [place] [address] 02491- 3306 29 Nov, 2016 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 E78.2 ; Chronic seasonal allergic rhinitis due to other allergen J30.2 and Family history of early CAD Z82.49 [facility] [id number] [place] [address] 17797- 0064 Nov, Sciatica M54.30 [facility] [id number] [place] [address] 67357- 8338 18 Nov, 2016 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 E78.2 ; Chronic seasonal allergic rhinitis due to other allergen J30.2 ; Family history of early CAD Z82.49 ; Other chronic pain G89.29 and Pain in left shoulder M25.512 [facility] [id number] [place] [address] 93237- 4415 Nov, Acute pain of left shoulder M25.512 [facility] [id number] [place] [address] 31442- 3506 Oct, Sciatica M54.30 [facility] [id number] [place] [address] 19492- 2213 Oct, [facility] [id number] [place] [address] 21138- 4125 Sep, Sciatica M54.30 [facility] [id number] [place] [address] 35893- 1523 Sep, Acute pain of left shoulder M25.512 [facility] [id number] [place] [address] 62899- 7963 Sep, Acute pain of left shoulder M25.512 [facility] [id number] [place] [address] 83126- 3827 Aug, Sciatica M54.30 [facility] [address] 71990- 4130 Aug, Sciatica M54.30 ; Tobacco abuse Z72.0 and Tobacco abuse counseling Z71.6 [facility] [id number] [place] [address] 01579- 8556 Aug, Acute pain of left shoulder M25.512 [facility] [id number] [place] [address] 24522 -4920 Aug, Contusion of right shoulder, initial encounter S40.011A ; Acute pain of left shoulder M25.512 and Shortness of breath R06.02 [facility] [id number] [place] [address] 27320- 8412 Aug, Lumbago with sciatica, right side M54.41 [facility] [id number] [place] [address] 63366- 6050 July, [facility] [id number] [place] [address] 35138- 0348 July, Lumbago with sciatica, right side M54.41 [facility] [id number] [place] [address] 47426- 3651 Jun, Lumbago with sciatica, right side M54.41 [facility] [id number] [place] [address] 98015- 0466 May, Lumbago with sciatica, right side M54.41 [facility] [id number] [place] [address] 78588 -8364 May, Herpes zoster without complication B02.9 [facility] [id number] [place] [address] 80245 -8705 May, Back pain M54.9 and Acute right-sided low back pain with right-sided sciatica M54.41 [facility] [address] 18723- 8001 Apr, [facility] [address] 45388- 6495 Apr, Lumbago with sciatica, right side M54.41 and Other chronic pain G89.29 [facility] [id number] [place] [address] 76758- 7719 Apr, [facility] [id number] [place] [address] 95702- 2160 Mar, [facility] [id number] [place] [address] 25786- 6239 Mar, [facility] [id number] [place] [address] 39758- 1715 Feb, [facility] [id number] [place] [address] 79916 -4845 Jan, Urinary frequency R35.0 [facility] [id number] [place] [address] 15595- 2893 Jan, [facility] [id number] [place] [address] 84393- 7737 Dec, [facility] [id number] [place] [address] 55749- 6664 Oct, [facility] [id number] [place] [address] 36549- 6606 Sep, [facility] [id number] [place] [address] 87968 -3005 Sep, Foreign body in left foot, initial encounter S90.852A [facility] [id number] [place] [address] 28149- 4822 Aug, [facility] [address] 58304- 1137 July, Sciatica M54.30 [facility] [address] 44599- 0297 Jun, [facility] [address] 97584- 3843 May, Osteoarthritis M19.90 [facility] [address] 07787- 1336 May, [facility] [address] 97116- 2144 May, Pain in right hip M25.551 [facility] [address] 99206 -5329 May, Tinea corporis B35.4 [facility] [address] 88643- 9433 Apr, Pain in right hip M25.551 [facility] [id number] [place] [address] 09670- 7576 Mar, Pain in right hip M25.551 [facility] [id number] [place] [address] 74406- 4935 Mar, [facility] [id number] [place] [address] 52635- 0301 Feb, Pain in right hip M25.551 [facility] [id number] [place] [address] 88352- 8381 Jan, Acute bronchitis, unspecified organism J20.9 and Cough R05 [facility] [address] 67489- 0346 Jan, Pain in right hip M25.551 [facility] [id number] [place] [address]- 1743 Dec, Pain in right hip M25.551 [facility] [address] [id number] [place] [address]- 9606 Nov, Acute bronchitis 466.0 [facility] [id number] [place] [address], [place] [address]- 8096 Nov, [facility] [address] [id number] [place] [address]- 2580 Oct, [facility] [id number] [place] [address], [place] [address]- 6077 Sep, [facility] [id number] [place] [address] 73531- 1186 Aug, [facility] [id number] [place] [address] 21710- 8518 July, [facility] [id number], [place] [address]- 8201 Jun, [facility] [address], [place] [address]- 6447 Jun, [facility] [id number], [place] [address]- 1849 May, [facility] [address], [place] [address]- 3278 May, [facility] [address] [facility] [id number], [place] [address]- 7183 Apr, [facility] [id number], [place] [address]- 2496 Apr, [facility] [address] [facility] [id number] [address]- 6436 Apr, [facility] [address], [place] [address]- 2629 Apr, [facility] [place] [facility] [address] [id number] [place] [address]- 4476 Apr, [facility] [place] [facility] [address] [id number] [place] [address]- 0975 Apr, [facility] [place] [facility] [address] [id number] [place] [address]- 9590 Mar, [facility] [place] [facility] [address] [id number] [place] [address]- 5533 Mar, [facility] [place] [facility] [address] [id number] [place] [address]- 7260 Feb, [facility] [place] [facility] [address] [id number] [place] [address]- 0747 Feb, [facility] [place] [facility] [address] [id number] [place] [address]- 2053 Feb, [facility] [place] [facility] [address] [id number] [place] [address]- 7693 Dec, [facility] [place] [facility] [address] [id number] [place] [address]- 5202 Dec, [facility] [place] [facility] [address] [id number] [place] [address]- 6418 Nov, [facility] [place] [facility] [address] [id number] [place] [address]- 6068 Nov, [facility] [place] [facility] [address] [id number] [place] [address]- 4531 Nov, [facility] [place] [facility] [address] [id number] [place] 8599 Nov, [facility] [place] [facility] [address] [id number] [place] 0220 Sep, [facility] [place] [facility] [address] [id number] [place] 4392 Sep, [facility] [place] [facility] [address] [id number] [place] [address]- 3017 Sep, [facility] [place] [facility] [address] [id number] [place] [address]- 4490 Sep, [facility] [place] [facility] [address] [id number] [place] [address]- 9112 Aug, [facility] [place] [facility] [address] [id number] [place] [address]- 2350 Aug, [facility] [place] [facility] [address] [id number] [place] [address]- 6185 Aug, [facility] [place] [facility] [address] [id number] [place] [address]- 4913 Aug, [facility] [place] [facility] [address] [id number] [place] [address]- 4389 July, [facility] [place] [facility] [address] [id number] [place] [address]- 7791 July, [facility] [place] [facility] [address] [id number] [place] [address]- 2873 Jun, [facility] [place] [facility] [address] [id number] [place] [address]- 2019 Jun, [facility] [place] [facility] [address] [id number] [place] [address]- 4959 Jun, [facility] [place] [facility] [address] [id number] [place] [address]- 2135 Jun, [facility] [place] [facility] [address] [id number] [place] [address]- 8469 Jun, [facility] [place] [facility] [address] [id number] [place] [address]- 5726 Jun, [facility] [place] [facility] [address] [id number] [place] [address]- 1491 Jun, [facility] [place] [facility] [address] [id number] [place] [address]- 4005 Jun, [facility] [place] [facility] [address] [id number] [place] [address]- 5192 May, [facility] [place] [facility] [address] [id number] [place] [address]- 4723 May, [facility] [place] [facility] [address] [id number] [place] [address]- 4975 May, [facility] [place] [facility] [address] [id number] [place] [address]- 4870 May, [facility] [place] [facility] [address] [id number] [place] [address]- 2981 May, [facility] [place] [facility] [address] [id number] [place] [address]- 5789 May, [facility] [place] [facility] [address] [id number] [place] [address]- 6714 Apr, [facility] [place] [facility] [address] [id number] [place] [address]- 0872 Apr, [facility] [place] [facility] [address] [id number] [place] [address]- 1899 Apr, [facility] [place] [facility] [address] [id number] [place] [address]- 8361 Apr, [facility] [place] [facility] [address] [id number] [place] [address]- 5956 Mar, [facility] [place] [facility] [address] [id number] [place] [address]- 6497 Mar, [facility] [place] [facility] [address] [id number] [place] [address]- 8719 Mar, [facility] [place] [facility] [address] [id number] [place] [address]- 8559 Mar, [facility] [place] [facility] [address] [id number] [place] [address]- 8762 Mar, [facility] [place] [facility] [address] [id number] [place] [address]- 9783 Mar, [facility] [address] [id number] [place] [address]- 1396 Feb, [facility] [address] [id number] [place] [address]- 3279 Feb, [facility] [address] [id number] [place] [address]- 0708 Feb, [facility] [address] [id number] [place] [address]- 5510 Feb, [facility] [address] [id number] [place] [address]- 1678 Feb, [facility] [address] [id number] [place] [address]- 1013 Feb, [facility] [address] [id number] [place] [address]- 0503 Feb, [facility] [address] [id number] [place] [address]- 6982 Feb, [facility] [address] [id number] [place] [address]- 9741 Feb, [facility] [address] [id number] [place] [address]- 5176 Feb, [facility] [address] [id number] [place] [address]- 4307 Feb, [facility] [address] [id number] [place] [address]- 9865 Feb, [facility] [address] [id number] [place] [address]- 3364 Jan, [facility] [address] [id number] [place] [address]- 2546 Jan, [facility] [address] [id number] [place] [address]- 8914 Jan, [facility] [place] [facility] [address] [id number] [place] [address]- 5361 Jan, [facility] [place] [facility] [address] [id number] [place] [address]- 0811 Jan, [facility] [place] [facility] [address] [id number] [place]- 4579 Jan, [facility] [place] [facility] [address] [id number] [place] [address]- 6585 Jan, [facility] [place] [facility] [address] [id number] [place] [address]- 2294 Jan, [facility] [place] [facility] [address] [id number] [place] [address]- 9258 Jan, [facility] [place] [facility] [address] [id number] [place] [address]- 3574 Jan, [facility] [place] [facility] [address] [id number] [place] [address]- 0714 Dec, [facility] [place] [facility] [address] [id number] [place] [address]- 5120 Dec, [facility] [place] [facility] [address] [id number], [place] [address]- 6849 Nov, [facility] [place] [facility] [address] [id number] [place] [address]- 9718 25 Nov, 2012 [facility] [place] [facility] [address] [id number], [place] [address]- 7329 09 Nov, 2012 [facility] [place] [facility] [address] [id number] [place] [address]- 5710 05 Nov, 2012 [facility] [place] [facility] [address] [id number] [place] [address]- 3870 Nov, [facility] [place] [facility] [address] [id number][place] 7187 Oct, [facility] [place] [facility] [address] [id number], [place] [address]- 9622 Oct, [facility] [address] [id number] [place] [address]- 5380 Oct, [facility] [place] [facility] [address] [id number] [place] [address]- 2105 Oct, [facility] [place] [facility] [address] [id number] [place] [address]- 4391 Oct, [facility] [place] [facility] [address] [id number] [place] [address]- 3283 Sep, [facility] [place] [facility] [address] [id number] [place] [address]- 2650 Sep, [facility] [place] [facility] [address] [id number] [place] [address]- 2192 Sep, [facility] [address] [id number] [place] [address]- 2199 Sep, [facility] [place] [facility] [address] [id number] [place] [address]- 5040 Sep, [facility] [place] [facility] [address] [id number] [place] [address]- 6428 Sep, [facility] [place] [facility] [address] [id number] [place] [address]- 6705 Aug, [facility] [place] [facility] [address] [id number] [place] [address]- 3011 Aug, [facility] [place] [facility] [address] [id number] [place] [address]- 3638 July, [facility] [place] [facility] [address] [id number] [place] [address]- 5614 July, [facility] [place] [facility] [address] [id number] [place] [address]- 2795 July, [facility] [place] [facility] [address] [id number] [place] [address]- 0330 Jun, [facility] [place] [facility] [address] [id number] [place] [address]- 8357 18 Jun, 2012 [facility] [address] [id number] [place] [address]- 8793 16 Jun, 2012 [facility] [place] [facility] [address] [id number] [place] [address] Jun, [facility] [address] [id number] [place] [address] May, [facility] [address] [id number] [place] [address] May, [facility] [address] [id number] [place] [address] Apr, [facility] [address] [id number] [place] [address] Apr, [facility] [address] [id number] [place] [address] Apr, [facility] [address] [id number] [place] [address] Apr, [facility] [address] [facility] [id number] [place] [address] Apr, [facility] [address] [id number] [place] [address] Apr, [facility] [address] [facility] [id number] [id number] Apr, [facility] [place] [facility] [address] [facility] [id number] [place] [address] Apr, [facility] [place] [facility] [address] [id number] [place] [address] Mar, [facility] [place] [facility] [address] [id number] [place] [address] Mar, [facility] [place] [facility] [address] [id number] [place] [address] Mar, [facility] [place] [facility] [address] [id number] [place] [address] Mar, [facility] [place] [facility] [address] [id number] [place] [address] Jan, [facility] [place] [facility] [address] [id number] [place] [address] Jan, [facility] [place] [facility] [address] [id number] [place] [address] Jan, [facility] [place] [facility] [address] [id number] [place] [address] Jan, [facility] [place] [facility] [address] [id number] [place] [address] Jan, [facility] [place] [facility] [address] [id number] [place] [address] Dec, [facility] [place] [facility] [address] [id number] [place] [address]- [address] Dec, [facility] [place] [facility] [address] [id number] [place] [address]- [address] Dec, [facility] [place] [facility] [address] [id number] [place] [address] Dec, [facility] [place] [facility] [address] [id number] [place] [address] Nov, [facility] [place] [facility] [address] [id number] [place] [address] Oct, [facility] [place] [facility] [address] [id number] [place] [address] Oct, [facility] [place] [facility] [address] [id number] [place] [address] Oct, [facility] [place] [facility] [address] [id number] [place] [address] Oct, [facility] [place] [facility] [address] [id number] [place] [address] Oct, [facility] [address] [id number] [place] [address] Sep, [facility] [place] [facility] [address] [id number] [place] [address] Sep, [facility] [address] [id number] [place] [address] Aug, [facility] [place] [facility] [address] [id number] [place] [address] Aug, [facility] [address] [id number] [place] [address] Aug, [facility] [address] [id number] [place] [address] Aug, [facility] [address] [id number] [place] [address] July, [facility] [address] [id number] [place] [address] Jun, [facility] [address] [id number] [place] [address] May, [facility] [address] [id number] [place] [address] May, [facility] [address] [id number] [place] [address] May, [facility] [address] [id number] [place] [address] Mar, [facility] [place] [facility] [address] [id number] [place] [address] Feb, [facility] [place] [facility] [address] [id number] [place] [address] Feb, [facility] [address] [id number] [place] Jan, [facility] [id number] [address] Jan, [facility] [id number] [address] Jan, [facility] [id number], [place] [address] Jan, [facility] [id number], [place] [address] Jan, [facility] [id number] [address] Dec, [facility] [id number] [address] Dec, [facility] [id number], [place] [address] Dec, [facility] [id number], [place] [address] May, [facility] [id number] [address] May, [facility] [id number], [place] [address] Apr, [facility] [id number], [place] [address] Jan, [facility] [id number], [place] [address] Apr, IMMUNIZATIONS No Known Immunizations SOCIAL HISTORY Never Assessed REASON FOR VISIT Medicare AWV - Initial Visit--Jeannette PLAN OF CARE Activity Details Follow Up 1 Year Reason: VITAL SIGNS Height 61 in 2017-08-19 Weight 210.5 lbs 2017-08-19 Temperature 99.0 degrees Fahrenheit 2017-08-19 Heart Rate 96 bpm 2017-08-19 Respiratory Rate 20 2017-08-19 BMI 39.77 kg/m2 2017-08-19 Blood pressure systolic 142 mmHg 2017-08-19 Blood pressure diastolic 84 mmHg 2017-08-19 MEDICATIONS Medication Instructions Dosage Frequency Start Date End Date Duration Status HydrOXYzine Pamoate 25 MG Orally 2 times a day 1 capsule as needed 12h July, 30 day(s) Active EVAN-e 400 MG Active Multivitamins Orally Once a day 1 tablet 24h Active Plaquenil 200 mg 2 tablets 24h Active Zocor 40 MG 1 tablet 24h 05 Nov, 2012 Active Naproxen Sodium 500 MG Orally Twice a day 1 tablet 12h Active Fluoxetine HCl 20 mg Orally Once a day 1 capsule in the morning 24h Active [place] 5-325 MG Orally every 6 hrs PRN 1 tablet July, 28 days Active PredniSONE 10 MG Orally Once a day 1 tablet 24h Active RESULTS Name Result Date Reference Range DEXA Hip and Spine 2017-09-11 PROCEDURES Procedure Date Ordered Result Body Site [facility] VISIT IPPE/AWV August 19, 2017 ANNUAL LAQUITA VST; VIOLETANL PPS INIT August 19, 2017 PT TOBACCO SCREEN RCVD TLK August 19, 2017 FALL RISK ASSESSMENT DOCD August 19, 2017 NEG SCR D PT NOT ELIG F/U/PLN DOC August 19, 2017 INSTRUCTIONS MEDICATIONS ADMINISTERED No Known Medications MEDICAL [...]
--- OUTSIDE RECORDS SUMMARY | 2017-12-19 08:10 | XMS REPORT ---
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 Name Role Phone CHRISTA GLORIA Unavailable PROBLEMS Type Condition ICD9-CM Code OAC79-QD Code Onset Dates Condition Status SNOMED Code Problem Other chronic pain G89.29 Active 81118339 Problem Acute right-sided low back pain with right-sided sciatica M54.41 Active 944502305 Problem Lumbago with sciatica, right side M54.41 Active 599995958 Problem Asymptomatic menopausal state Z78.0 Active 70443358 Problem Episode of recurrent major depressive disorder, unspecified depression episode severity F33.9 Active 783027436 Problem 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 E78.2 Active 787565936 Problem Other chronic pain G89.29 Active 30155341 Problem Anxiety F41.9 Active 24808062 Problem Other organ or system involvement in systemic lupus erythematosus M32.19 Active 29968581 Problem Sciatica M54.30 Active 67468698 Problem Hepatitis C B19.20 Active 17178885 Problem HILARIO (obstructive sleep apnea) G47.33 Active 45700242 Problem 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 Active 562560005 Problem Seborrheic keratoses L82.1 Active 769549066 Problem Urinary frequency R35.0 Active 459365387 ALLERGIES Substance Reaction Event Type Date Status Cymbalta drowsiness Drug Allergy July, Active ENCOUNTERS Encounter Location Date Diagnosis [facility] [address] [facility] [id number] [address] Oct, Other organ or system involvement in systemic lupus erythematosus M32.19 [facility] [address] [id number] [address] Sep, Other organ or system involvement in systemic lupus erythematosus M32.19 [facility] [id number] [place] [address] 41424- 0729 Aug, Anxiety F41.9 [facility] [id number] [place] [address] 57656- 2554 Aug, Other organ or system involvement in systemic lupus erythematosus M32.19 [facility] [id number] [place] [address] 24344- 2784 July, Medicare annual wellness visit, initial Z00.00 ; Anxiety F41.9 ; HILARIO (obstructive sleep apnea) G47.33 ; Hepatitis C B19.20 ; Other chronic pain G89.29 ; Asymptomatic menopausal state Z78.0 and Episode of recurrent major depressive disorder, unspecified depression episode severity F33.9 [facility] [id number] [place] [address] 98585- 6662 July, Anxiety F41.9 [facility] [id number] [place] [address] 07611- 6868 July, Other organ or system involvement in systemic lupus erythematosus M32.19 [facility] [id number] [place] [address] 45513- 3933 July, [facility] [id number] [place] [address] 01832- 7809 Jun, Other organ or system involvement in systemic lupus erythematosus M32.19 ; BMI 40.0-44.9, adult Z68.41 ; Other chronic pain G89.29 and Controlled substance agreement signed Z79.899 [facility] [id number] [place] [address] 87005- 7229 May, Sciatica M54.30 [facility] [id number] [place] [address] 91591- 7260 Apr, Sciatica M54.30 [facility] [id number] [place] [address] 14342- 4939 Mar, Sciatica M54.30 [facility] [id number] [place] [address] 95379- 3155 13 Feb, 2017 Sciatica M54.30 [facility] [id number] [place] [address] 77712- 0754 15 Jan, 2017 Sciatica M54.30 [facility] [id number] [place] [address] 35860- 6609 14 Jan, 2017 Sciatica M54.30 [facility] [id number] [place] [address] 44914- 5026 19 Dec, 2016 Sciatica M54.30 [facility] [id number] [place] [address] 26914- 8065 18 Dec, 2016 Sciatica M54.30 [facility] [address] 23609- 8394 29 Nov, 2016 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 E78.2 ; Chronic seasonal allergic rhinitis due to other allergen J30.2 and Family history of early CAD Z82.49 [facility] [address] 16368- 5041 Nov, Sciatica M54.30 [facility] [id number] [place] [address] 59157- 8993 18 Nov, 2016 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 E78.2 ; Chronic seasonal allergic rhinitis due to other allergen J30.2 ; Family history of early CAD Z82.49 ; Other chronic pain G89.29 and Pain in left shoulder M25.512 [facility] [id number] [place] [address] 82921- 5061 11 Nov, 2016 Acute pain of left shoulder M25.512 [facility] [id number] [place] [address] 01181- 5116 Oct, Sciatica M54.30 [facility] [id number] [place] [address] 54568- 3587 Oct, [facility] [id number] [place] [address] 38348- 8258 Sep, Sciatica M54.30 [facility] [id number] [place] [address] 41175- 8140 Sep, Acute pain of left shoulder M25.512 [facility] [address] 35863- 9772 Sep, Acute pain of left shoulder M25.512 [facility] [id number] [place] [address] 06865- 3374 Aug, Sciatica M54.30 [facility] [address] 70884- 7287 Aug, Sciatica M54.30 ; Tobacco abuse Z72.0 and Tobacco abuse counseling Z71.6 [place] [facility] [address] 91051- 9038 Aug, Acute pain of left shoulder M25.512 [facility] [address] 23010 -9803 Aug, Contusion of right shoulder, initial encounter S40.011A ; Acute pain of left shoulder M25.512 and Shortness of breath R06.02 [place] [facility] [address] 91887- 8897 Aug, Lumbago with sciatica, right side M54.41 [facility] [id number] [place] [address] 29421- 8814 July, [facility] [id number] [place] [address] 81561- 1671 July, Lumbago with sciatica, right side M54.41 [facility] [id number] [place] [address] 11589- 3454 Jun, Lumbago with sciatica, right side M54.41 [facility] [id number] [place] [address] 70482- 8334 May, Lumbago with sciatica, right side M54.41 [facility] [address] [place] [address] May, Herpes zoster without complication B02.9 [facility] [address] 96366 -3338 May, Back pain M54.9 and Acute right-sided low back pain with right-sided sciatica M54.41 [facility] [address] 35305- 5355 Apr, [facility] [address] 46531- 4284 Apr, Lumbago with sciatica, right side M54.41 and Other chronic pain G89.29 [facility] [address] 97502- 3983 Apr, [facility] [address] 94157- 7988 Mar, [facility] [address] 64271- 1774 Mar, [facility] [id number] [place] [address] 42330- 2923 Feb, [facility] [id number] [place] [address] 02480 -1706 Jan, Urinary frequency R35.0 [facility] [id number] [place] [address] 03871- 8764 Jan, [facility] [id number] [place] [address] 49989- 0740 Dec, [facility] [id number] [place] [address] 17684- 2626 Oct, [facility] [id number] [place] [address] 25614- 8321 Sep, [facility] [id number] [place] [address] 60205 -9733 Sep, Foreign body in left foot, initial encounter S90.852A [facility] [id number] [place] [address] 47919- 2904 Aug, [facility] [id number] [place] [address] 55434- 0569 July, Sciatica M54.30 [facility] [id number] [place] [address] 77483- 1994 Jun, [facility] [id number] [place] [address] 54012- 9089 May, Osteoarthritis M19.90 [facility] [address] 76935- 4580 May, [facility] [id number] [place] [address] 55702- 8635 May, Pain in right hip M25.551 [facility] [id number] [place] [address] 05081 -6814 May, Tinea corporis B35.4 [facility] [id number] [place] [address] 69440- 9180 Apr, Pain in right hip M25.551 [facility] [id number] [place] [address] 91737- 3227 Mar, Pain in right hip M25.551 [place] [id number] [place] [address] 95521- 5660 Mar, [facility] [id number] [place] [address] 94768- 6421 Feb, Pain in right hip M25.551 [facility] [id number] [place] [address] 77683- 1630 13 Jan, 2015 Acute bronchitis, unspecified organism J20.9 and Cough R05 [facility] [id number] [place] [address] 01813- 3974 Jan, Pain in right hip M25.551 [facility] [address] [facility] [id number] [place] [address]- 0613 Dec, Pain in right hip M25.551 [facility] [address] [id number] [address] Nov, Acute bronchitis 466.0 [facility] [address] [facility] [id number], [place] [address]- 6300 Nov, [facility] [address] [facility] [id number], [place] [address]- 8347 Oct, [facility] [address] [facility] [id number] [place] [address] 64745- 4944 Sep, [facility] [address], [place] [address]- 1694 Aug, [facility] [id number] [place] [address] 76024- 8697 July, [facility] [address] [id number], [place] [address]- 1659 Jun, [facility] [id number] [place] [address] 85829- 7296 Jun, [facility] [address], [place] [address]- 4064 May, [facility] [address], [place] [address]- 2652 May, [facility] [address] [id number] [address] Apr, [facility] [address], [place] [address]- 8331 Apr, [facility] [address] 8504 Apr, [facility] [address] 0322 Apr, [facility] [place] [facility] [address] [id number] [place] [address]- 6050 Apr, [facility] [place] [facility] [address] [id number] [place] [address]- 5516 Apr, [facility] [place] [facility] [address] [id number] [place] [address]- 8464 Mar, [facility] [place] [facility] [address] [id number] [place] [address]- 9634 Mar, [facility] [place] [facility] [address] [id number] [place] [address]- 9491 Feb, [facility] [place] [facility] [address] [id number] [place] [address]- 0027 Feb, [facility] [place] [facility] [address] [id number] [place] [address]- 5552 Feb, [facility] [place] [facility] [address] [id number] [place] [address]- 4445 Dec, [facility] [place] [facility] [address] [id number] [place] [address]- 1584 Dec, [facility] [place] [facility] [address] [id number] [place] [address]- 9838 Nov, [facility] [place] [facility] [address] [id number], [place] [address]- 7135 Nov, [facility] [place] [facility] [address] [id number], [place] [address]- 7861 Nov, [facility] [place] [facility] [address] [id number] [place] [address]- 9299 Nov, [facility] [place] [facility] [address] [id number] [place] [address]- 8435 Sep, [facility] [place] [facility] [address] [id number] [place] [address]- 9645 Sep, [facility] [place] [facility] [address] [id number] [place] [address]- 5624 Sep, [facility] [place] [facility] [address] [id number] [place] [address]- 7716 Sep, [facility] [place] [facility] [address] [id number] [place] [address]- 7562 Aug, [facility] [place] [facility] [address] [id number] [place] 5674 Aug, [facility] [place] [facility] [address] [id number] [place] [address]- 0489 Aug, [facility] [place] [facility] [address] [id number] [place] [address]- 4380 Aug, [facility] [place] [facility] [address] [id number] [place] [address]- 2106 July, [facility] [place] [facility] [address] [id number] [place] [address]- 6155 July, [facility] [place] [facility] [address] [id number] [place] [address]- 6165 Jun, [facility] [place] [facility] [address] [id number] [place] [address]- 4556 Jun, [facility] [place] [facility] [address] [id number] [place] [address]- 8459 Jun, [facility] [place] [facility] [address] [id number] [place] [address]- 6533 Jun, [facility] [place] [facility] [address] [id number] [place] [address]- 6196 Jun, [facility] [place] [facility] [address] [id number] [place] [address]- 7788 Jun, [facility] [place] [facility] [address] [id number] [place] [address]- 5511 Jun, [facility] [place] [facility] [address] [id number] [place] 0415 Jun, [facility] [place] [facility] [address] [id number] [place] [address]- 1444 May, [facility] [place] [facility] [address] [id number] [place] [address]- 4796 May, [facility] [place] [facility] [address] [id number] [place] [address]- 7653 May, [facility] [place] [facility] [address] [id number] [place] [address]- 5980 May, [facility] [place] [facility] [address] [id number] [place] [address]- 6682 May, [facility] [place] [facility] [address] [id number] [place] [address]- 5020 May, [facility] [place] [facility] [address] [id number] [place] [address]- 4905 Apr, [facility] [place] [facility] [address] [id number] [place] [address]- 4327 Apr, [facility] [place] [facility] [address] [id number] [place] [address]- 4257 Apr, [facility] [place] [facility] [address] [id number] [place] [address]- 5917 Apr, [facility] [place] [facility] [address] [id number] [place] [address]- 3661 Mar, [facility] [place] [facility] [address] [id number] [place] [address]- 0361 Mar, [facility] [place] [facility] [address] [id number] [place] [address]- 4514 Mar, [facility] [place] [facility] [address] [id number] [place] [address]- 3348 Mar, [facility] [place] [facility] [address] [id number] [place] [address]- 7639 Mar, [facility] [place] [facility] [address] [id number], [place] [address]- 3994 Mar, [facility] [address] [id number] [place] [address]- 7482 Feb, [facility] [address] [id number] [place] [address]- 5993 Feb, [facility] [address] [facility] [id number] [place] [address]- 3045 Feb, [facility] [address] [id number] [place] 7317 Feb, [facility] [address] [id number] [place] [address]- 0067 Feb, [facility] [address] [id number] [place] [address]- 2137 Feb, [facility] [id number] [place] [address]- 9253 Feb, [facility] [address] [id number] [place] [address]- 6242 Feb, [facility] [address] [facility] [id number] [place] [address]- 1853 Feb, [facility] [address] [facility] [id number] [place] [address]- 8231 Feb, [facility] [address] [id number], [place] [address]- 8078 Feb, [facility] [place] [facility] [address] [id number], [place] [address]- 3896 Feb, [facility] [place] [facility] [address] [id number], [place] [address]- 5008 Jan, [facility] [place] [facility] [address] [facility] [id number], [place] [address]- 0866 Jan, [facility] [address] [facility] [id number], [place] [address]- 8674 Jan, [facility] [place] [facility] [address] [id number] [place] [address]- 3665 Jan, [facility] [place] [facility] [address] [id number] [place] [address]- 1550 Jan, [facility] [place] [facility] [address] [id number] [place] 2767 Jan, [facility] [place] [facility] [address] [id number] [place] [address]- 8609 Jan, [facility] [place] [facility] [address] [id number] [place] [address]- 9424 Jan, [facility] [place] [facility] [address] [id number] [place] [address]- 7916 Jan, [facility] [place] [facility] [address] [id number] [place] [address]- 9719 Jan, [facility] [place] [facility] [address] [id number] [place] [address]- 9985 Dec, [facility] [place] [facility] [address] [id number] [place] [address]- 2259 Dec, [facility] [place] [facility] [address] [id number] [place] [address]- 6091 Nov, [facility] [place] [facility] [address] [id number] [place] [address]- 9357 Nov, [facility] [place] [facility] [address] [id number] [place] [address]- 8754 Nov, [facility] [place] [facility] [address] [id number] [place] [address]- 0106 05 Nov, 2012 [facility] [place] [facility] [address] [id number] [place] [address]- 6431 Nov, [facility] [place] [facility] [address] [id number] [place] [address]- 7465 Oct, [facility] [place] [facility] [address] [id number] [place] [address]- 6257 Oct, [facility] [address] [id number] [place] [address]- 9093 Oct, [facility] [place] [facility] [address] [id number] [place] [address]- 1616 Oct, [facility] [place] [facility] [address] [id number] [place] [address]- 1843 Oct, [facility] [place] [facility] [address] [id number] [place] [address]- 1297 Sep, [facility] [place] [facility] [address] [id number] [place] [address]- 3521 Sep, [facility] [place] [facility] [address] [id number] [place] [address]- 7322 Sep, [facility] [place] [facility] [address] [id number] [place] [address]- 4819 Sep, [facility] [place] [facility] [address] [id number] [place] [address]- 1435 Sep, [facility] [place] [facility] [address] [id number] [place] [address]- 6466 Sep, [facility] [place] [facility] [address] [id number] [place] [address]- 4989 Aug, [facility] [place] [facility] [address] [id number] [place] [address]- 5586 Aug, [facility] [place] [facility] [address] [id number] [place] [address]- 5701 July, [facility] [place] [facility] [address] [id number] [place] [address]- 6413 July, [facility] [place] [facility] [address] [id number] [place] [address]- 5925 July, [facility] [place] [facility] [address] [id number] [place] [address]- 6362 Jun, [facility] [place] [facility] [address] [id number] [place] [address]- 0365 18 Jun, 2012 [facility] [address] [id number] [place] [address]- 6133 16 Jun, 2012 [facility] [place] [facility] [address] [id number] [place] [address]- 6096 Jun, [facility] [address] [id number] [place] [address]- 7916 May, [facility] [address] [id number] [place] [address] 2546 May, [facility] [address] [id number] [place] [address] Apr, [facility] [address] [id number] [place] [address] Apr, [facility] [address] [id number] [place] [address] Apr, [facility] [address] [id number] [place] [address] Apr, [facility] [address] [id number] [place] [address] Apr, [facility] [address] [id number] [place] [address] Apr, [facility] [address] [id number] [id number] Apr, [facility] [place] [facility] [address] [id number] [place] [address] Apr, [facility] [place] [facility] [address] [facility] [id number] [place] [address] Mar, [facility] [place] [facility] [address] [id number] [place] [address] Mar, [facility] [place] [facility] [address] [facility] [id number] [place] [address] Mar, [facility] [place] [facility] [address] [id number] [place] [address] Mar, [facility] [place] [facility] [address] [id number] [place] [address] Jan, [facility] [place] [facility] [address] [id number] [place] [address] Jan, [facility] [place] [facility] [address] [id number] [place] [address] Jan, [facility] [place] [facility] [address] [id number] [place] [address] Jan, [facility] [place] [facility] [address] [id number] [place] [address] Jan, [facility] [place] [facility] [address] [id number] [place] [address] Dec, [facility] [place] [facility] [address] [id number] [place] [address] Dec, [facility] [place] [facility] [address] [id number] [place] [address] Dec, [facility] [place] [facility] [address] [id number] [place] [address] Dec, [facility] [place] [facility] [address] [id number] [place] [address] Nov, [facility] [place] [facility] [address] [id number], [place] [address] Oct, [facility] [place] [facility] [address] [id number] [place] [address] Oct, [facility] [place] [facility] [address] [id number] [place] [address] Oct, [facility] [place] [facility] [address] [id number] [place] [address] Oct, [facility] [place] [facility] [address] [id number] [place] [address] Oct, [facility] [place] [facility] [address] [id number] [place] [address] Sep, [facility] [place] [facility] [address] [id number] [place] [address] Sep, [facility] [place] [facility] [address] [id number] [place] [address] Aug, [facility] [place] [facility] [address] [id number] [place] [address] 47[address] Aug, [facility] [place] [facility] [address] [id number] [place] [address] Aug, [facility] [place] [facility] [address] [id number] [place] [address] 28[address] Aug, [facility] [place] [facility] [address] [id number] [place] [address] July, [facility] [place] [facility] [address] [id number] [place] [address] Jun, [facility] [place] [facility] [address] [id number] [place] [address] May, [facility] [place] [facility] [address] [id number] [place] [address] May, [facility] [place] [facility] [address] [id number] [place] [address] May, [facility] [place] [facility] [address] [id number] [place] [address] Mar, [facility] [place] [facility] [address] [id number] [place] [address] Feb, [facility] [place] [facility] [address] [id number] [place] [address] 25[address] Feb, [facility] [place] [facility] [address] [id number] [place] [address] Jan, [facility] [place] [facility] [id number] [address] Jan, [facility] [id number], [place] [address] Jan, [facility] [id number], [place] [address] Jan, [facility] [id number] [place] [address] Jan, [facility] [id number] [place] [address]- [address] Dec, [facility] [id number] [place] [address]- [address] Dec, [facility] [id number] [place] [address]- [address] Dec, [facility] [id number] [place] [address] May, [facility] [id number] [place] [address]- [address] May, [facility] [id number] [place] [address]- [address] Apr, [facility] [address] [id number], [place] [address] Jan, [facility] [id number], [place] [address] Apr, IMMUNIZATIONS No Known Immunizations SOCIAL HISTORY Never Assessed REASON FOR VISIT ER f/u [facility], 08/07 - VC - Chest pain, shortness of breath, nausea, Patient is experiencing ear ringing in both ears while taking wellbutrin, Patient claims arms felt heavy, sweating, shortness of breath, nausea and chest pain yesterday (08/12/17) PLAN OF CARE Activity Details Follow Up 4 Weeks Reason:anxiety VITAL SIGNS Height 61 in 2017-08-13 Weight 211 lbs 2017-08-13 Temperature 97.1 degrees Fahrenheit 2017-08-13 Heart Rate 108 bpm 2017-08-13 Respiratory Rate 20 2017-08-13 Oximetry on room air:97 % 2017-08-13 BMI 39.86 kg/m2 2017-08-13 Blood pressure systolic 138 mmHg 2017-08-13 Blood pressure diastolic 86 mmHg 2017-08-13 MEDICATIONS Medication Instructions Dosage Frequency Start Date End Date Duration Status EVAN-e 400 MG Active Multivitamins Orally Once a day 1 tablet 24h Active Zocor 40 MG 1 tablet 24h Nov, Active PredniSONE 10 MG Orally Once a day 1 tablet 24h Active Naproxen Sodium 500 MG Orally Twice a day 1 tablet 12h Active Plaquenil 200 mg 2 tablets 24h Active Parshall 5-325 MG Orally every 6 hrs PRN 1 tablet July, 28 days Active Fluoxetine HCl 20 mg Orally Once a day 1 capsule in the morning 24h Active HydrOXYzine Pamoate 25 MG Orally 2 times a day 1 capsule as needed 12h July, 30 day(s) Active RESULTS No Results PROCEDURES Procedure Date Ordered Result Body Site [facility] VISIT ESTABLISHED PATIENT August 13, 2017 INSTRUCTIONS MEDICATIONS ADMINISTERED No Known Medications [...]
--- OUTSIDE RECORDS SUMMARY | 2017-12-19 08:11 | XMS REPORT ---
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 Name Role Phone CHRISTA GLORIA Unavailable PROBLEMS Type Condition ICD9-CM Code [id number] Code Onset Dates Condition Status SNOMED Code Problem Other chronic pain G89.29 Active 67870212 Problem Acute right-sided low back pain with right-sided sciatica M54.41 Active 820734390 Problem Lumbago with sciatica, right side M54.41 Active 315554562 Problem Asymptomatic menopausal state Z78.0 Active 63603822 Problem Episode of recurrent major depressive disorder, unspecified depression episode severity F33.9 Active 031100032 Problem 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 E78.2 Active 853394468 Problem Other chronic pain G89.29 Active 37858826 Problem Anxiety F41.9 Active 94496490 Problem Other organ or system involvement in systemic lupus erythematosus M32.19 Active 10837264 Problem Sciatica M54.30 Active 99627906 Problem Hepatitis C B19.20 Active 18243759 Problem HILARIO (obstructive sleep apnea) G47.33 Active 82640617 Problem 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 Active 905122746 Problem Seborrheic keratoses L82.1 Active 714717356 Problem Urinary frequency R35.0 Active 256099840 ALLERGIES No Information ENCOUNTERS Encounter Location Date Diagnosis [facility] [address] [facility] [id number] [address] Oct, Other organ or system involvement in systemic lupus erythematosus M32.19 [facility] [id number] [address] Sep, Other organ or system involvement in systemic lupus erythematosus M32.19 [facility] [address] [id number] [address] Aug, Anxiety F41.9 [facility] [id number] [address] Aug, Other organ or system involvement in systemic lupus erythematosus M32.19 [facility] [id number] [place] [address] 06474- 6990 July, Medicare annual wellness visit, initial Z00.00 ; Anxiety F41.9 ; HILARIO (obstructive sleep apnea) G47.33 ; Hepatitis C B19.20 ; Other chronic pain G89.29 ; Asymptomatic menopausal state Z78.0 and Episode of recurrent major depressive disorder, unspecified depression episode severity F33.9 [facility] [id number] [place] [address] 90277- 9153 July, Anxiety F41.9 [facility] [id number] [place] [address] 41241- 1701 July, Other organ or system involvement in systemic lupus erythematosus M32.19 [facility] [id number] [place] [address] 42565- 6236 July, [facility] [id number] [place] [address] 59778- 9498 Jun, Other organ or system involvement in systemic lupus erythematosus M32.19 ; BMI 40.0-44.9, adult Z68.41 ; Other chronic pain G89.29 and Controlled substance agreement signed Z79.899 [facility] [id number] [place] [address] 89456- 0825 May, Sciatica M54.30 [facility] [address] [id number] [address] 6365 Apr, Sciatica M54.30 [facility] [id number] [place] [address] 04855- 5237 Mar, Sciatica M54.30 [facility] [id number] [place] [address] 65911- 3908 Feb, Sciatica M54.30 [facility] [id number] [place] [address] 21024- 9994 15 Jan, 2017 Sciatica M54.30 [facility] [address] [address]- 8436 14 Jan, 2017 Sciatica M54.30 [facility] [id number] [place] [address] 23042- 7500 19 Dec, 2016 Sciatica M54.30 [place] [address] 83838- 9170 Dec, Sciatica M54.30 [facility] [address] 21884- 6398 29 Nov, 2016 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 E78.2 ; Chronic seasonal allergic rhinitis due to other allergen J30.2 and Family history of early CAD Z82.49 [facility] [id number] [place] [address] 86190- 7369 Nov, Sciatica M54.30 [facility] [id number] [place] [address] 66870- 0395 Nov, 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 E78.2 ; Chronic seasonal allergic rhinitis due to other allergen J30.2 ; Family history of early CAD Z82.49 ; Other chronic pain G89.29 and Pain in left shoulder M25.512 [facility] [id number] [place] [address] 78640- 2822 11 Nov, 2016 Acute pain of left shoulder M25.512 [facility] [id number] [place] [address] 02655- 254 Oct, Sciatica M54.30 [facility] [id number] [place] [address] 24466- 4086 Oct, [place] [place] [id number] [place] [address] 98507- 5026 Sep, Sciatica M54.30 [facility] [id number] [place] [address] 11170- 0592 Sep, Acute pain of left shoulder M25.512 [facility] [id number] [place] [address] 34039- 0018 Sep, Acute pain of left shoulder M25.512 [facility] [id number] [place] [address] 52190- 2378 Aug, Sciatica M54.30 [place] [address] 41482- 9322 Aug, Sciatica M54.30 ; Tobacco abuse Z72.0 and Tobacco abuse counseling Z71.6 [place] [address] 80902- 7761 Aug, Acute pain of left shoulder M25.512 [facility] [id number] [place] [address] 34320 -5755 Aug, Contusion of right shoulder, initial encounter S40.011A ; Acute pain of left shoulder M25.512 and Shortness of breath R06.02 [facility] [id number] [place] [address] 25758- 0857 Aug, Lumbago with sciatica, right side M54.41 [facility] [id number] [place] [address] 32357- 7265 July, [facility] [place] [id number] [place] [address] 71998- 3074 July, Lumbago with sciatica, right side M54.41 [facility] [id number] [place] [address] 86354- 4956 Jun, Lumbago with sciatica, right side M54.41 [facility] [id number] [place] [address] 89482- 3492 May, Lumbago with sciatica, right side M54.41 [facility] [id number] [place] [address] 98805 -4861 May, Herpes zoster without complication B02.9 [facility] [id number] [place] [address] 37741 -5501 May, Back pain M54.9 and Acute right-sided low back pain with right-sided sciatica M54.41 [facility] [id number] [place] [address] 81933- 6269 Apr, [facility] [address] 62802- 0869 Apr, Lumbago with sciatica, right side M54.41 and Other chronic pain G89.29 [facility] [address] 65201- 2977 Apr, [facility] [id number] [place] [address] 84618- 8489 Mar, [facility] [address] 55822- 3143 Mar, [facility] [id number] [place] [address] 46917- 3573 Feb, [facility] [id number] [place] [address] 22252 -7190 Jan, Urinary frequency R35.0 [facility] [id number] [place] [address] 60640- 6514 Jan, [facility] [id number] [place] [address] 20268- 6556 Dec, [facility] [id number] [place] [address] 26193- 3619 Oct, [facility] [address] 41757- 2229 Sep, [facility] [id number] [place] [address] 16221 -2790 Sep, Foreign body in left foot, initial encounter S90.852A [facility] [id number] [address]- 8282 Aug, [facility] [id number] [place] [address] 90066- 3224 July, Sciatica M54.30 [facility] [id number] [place] [address] 07894- 8875 Jun, [facility] [id number] [place] [address] 45419- 4364 May, Osteoarthritis M19.90 [facility] [id number] [place] [address] 39988- 0911 May, [facility] [id number] [place] [address] 09052- 1590 May, Pain in right hip M25.551 [facility] [id number] [place] [address] 04100 -9896 May, Tinea corporis B35.4 [facility] [id number] [place] [address] 58901- 3442 Apr, Pain in right hip M25.551 [facility] [id number] [place] [address] 10140- 7925 Mar, Pain in right hip M25.551 [place] [place] [address] [place] [address] 52177- 0399 Mar, [facility] [id number] [place] [address] 81466- 8780 Feb, Pain in right hip M25.551 [facility] [id number] [place] [address] 28035- 7498 13 Jan, 2015 Acute bronchitis, unspecified organism J20.9 and Cough R05 [facility] [address] [address]- 9484 11 Jan, 2015 Pain in right hip M25.551 [facility] [id number] [address]- 6734 Dec, Pain in right hip M25.551 [facility] [address] [id number] [place] [address]- 6395 Nov, Acute bronchitis 466.0 [facility] [address] [id number] [place] [address]- 5846 Nov, [facility] [address] [id number] [place] [address]- 0326 Oct, [facility] [address] [id number] [place] [address]- 7492 Sep, [facility] [address] [id number] [place] [address]- 6896 Aug, [facility] [id number] [address]- 7248 July, [facility] [id number] [address]- 5521 Jun, [facility] [address] [id number] [place] [address]- 0789 Jun, [facility] [address] [id number] [address]- 9519 May, [facility] [place] [facility] [id number] [address]- 7642 May, [facility] [place] [facility] [address] [facility] [id number] [place] [address]- 0542 Apr, [facility] [place] [facility] [address] [id number] [place] [address]- 8916 Apr, [facility] [place] [facility] [address] [facility] [id number] [place] 3512 Apr, [facility] [place] [facility] [id number] 0276 Apr, [facility] [place] [facility] [address] [facility] [id number] [place] [address]- 1056 06 Apr, 2014 [facility] [address] [id number] [place] [address]- 6358 Apr, [facility] [place] [facility] [address] [id number] [place] [address]- 4088 Mar, [facility] [address] [id number] [place] [address]- 1104 Mar, [facility] [place] [facility] [address] [id number] [place] [address]- 9917 Feb, [facility] [place] [facility] [address] [id number] [place] [address]- 9035 Feb, [facility] [place] [facility] [address] [id number] [place] [address]- 3008 Feb, [facility] [place] [facility] [address] [id number] [place] [address]- 5145 Dec, [facility] [place] [facility] [address] [id number] [place] [address]- 3511 Dec, [facility] [place] [facility] [address] [id number] [place] [address]- 9071 Nov, [facility] [place] [facility] [address] [id number] [place] [address]- 1642 Nov, [facility] [place] [facility] [address] [id number] [place] [address]- 8289 Nov, [facility] [place] [facility] [address] [id number] [place] [address]- 0152 Nov, [facility] [place] [facility] [address] [id number] [place] [address]- 1875 Sep, [facility] [place] [facility] [address] [id number] [place] [address]- 9523 Sep, [facility] [place] [facility] [address] [id number] [place] [address]- 5245 Sep, [facility] [place] [facility] [address] [id number] [place] [address]- 3120 Sep, [facility] [place] [facility] [address] [id number] [place] [address]- 6717 Aug, [facility] [place] [facility] [address] [id number] [place] [address]- 5154 Aug, [facility] [place] [facility] [address] [id number] [place] [address]- 1000 Aug, [facility] [place] [facility] [address] [id number] [place] [address]- 2319 Aug, [facility] [place] [facility] [address] [id number] [place] [address]- 9673 July, [facility] [place] [facility] [address] [id number] [place] [address]- 2046 July, [facility] [place] [facility] [address] [id number] [place] [address]- 3159 Jun, [facility] [place] [facility] [address] [id number] [place] [address]- 7083 Jun, [facility] [place] [facility] [address] [id number] [place] [address]- 4812 Jun, [facility] [place] [facility] [address] [id number] [place] [address]- 3693 Jun, [facility] [place] [facility] [address] [id number] [place] [address]- 9527 Jun, [facility] [place] [facility] [address] [id number] [place] [address]- 6488 Jun, [facility] [place] [facility] [address] [id number] [place] [address]- 3722 Jun, [facility] [place] [facility] [address] [id number] [place] 3034 Jun, [facility] [place] [facility] [address] [id number] [place] [address]- 9786 May, [facility] [place] [facility] [address] [id number] [place] [address]- 8879 May, [facility] [place] [facility] [address] [id number] [place] [address]- 3450 May, [facility] [place] [facility] [address] [id number] [place] [address]- 6793 May, [facility] [place] [facility] [address] [id number] [place] [address]- 5967 May, [facility] [place] [facility] [address] [id number] [place] [address]- 9877 May, [facility] [place] [facility] [address] [id number] [place] [address]- 5222 Apr, [facility] [place] [facility] [address] [id number] [place] [address]- 8313 Apr, [facility] [place] [facility] [address] [id number] [place] [address]- 5847 Apr, [facility] [place] [facility] [address] [id number] [place] [address]- 3105 Apr, [facility] [place] [facility] [address] [facility] [id number] [place] [address]- 3053 Mar, [facility] [place] [facility] [address] [id number] [place] [address]- 8368 Mar, [facility] [place] [facility] [address] [id number] [place] [address]- 0903 Mar, [facility] [place] [facility] [address] [id number] [place] [address]- 5235 Mar, [facility] [place] [facility] [address] [id number] [place] [address]- 4115 Mar, [facility] [place] [facility] [address] [facility] [id number] [place] [address]- 7496 Mar, [facility] [place] [facility] [address] [id number] [place] [address]- 7141 Feb, [facility] [address] [id number] [place] [address]- 1607 Feb, [facility] [place] [facility] [address] [id number] [place] [address]- 7026 Feb, [facility] [address] [id number] [place] [address]- 5612 Feb, [facility] [address] [id number] [place] [address]- 1779 Feb, [facility] [place] [facility] [address] [id number] [place] [address]- 6960 Feb, [facility] [address] [id number] [place] [address]- 5612 Feb, [facility] [address] [id number] [place] [address]- 5013 Feb, [facility] [address] [id number] [place] 6274 Feb, [facility] [address] [id number] [place] [address]- 5918 Feb, [facility] [address] [id number] [place] [address]- 8566 Feb, [facility] [place] [facility] [address] [id number] [place] [address]- 4682 Feb, [facility] [place] [facility] [address] [id number] [place] [address]- 0170 Jan, [facility] [place] [facility] [address] [id number] [place] [address]- 4911 Jan, [facility] [place] [facility] [address] [id number] [place] [address]- 5570 Jan, [facility] [place] [facility] [address] [id number] [place] [address]- 2134 Jan, [facility] [place] [facility] [address] [id number] [place] 9884 Jan, [facility] [place] [facility] [address] [id number] [place] [address]- 5572 Jan, [facility] [place] [facility] [address] [id number] [place] [address]- 0762 Jan, [facility] [place] [facility] [address] [id number] [place] [address]- 9798 Jan, [facility] [place] [facility] [address] [id number] [place] 1750 Jan, [facility] [place] [facility] [address] [id number] [place] [address]- 3808 Jan, [facility] [place] [facility] [address] [id number] [place] [address]- 2074 Dec, [facility] [place] [facility] [address] [id number] [place] [address]- 6093 Dec, [facility] [place] [facility] [address] [id number] [place] [address]- 4628 Nov, [facility] [place] [facility] [address] [id number] [place] [address]- 0929 Nov, [facility] [place] [facility] [address] [id number] [place] [address]- 7216 Nov, [facility] [place] [facility] [address] [id number] [place] [address]- 0399 05 Nov, 2012 [facility] [place] [facility] [address] [id number] [place] [address]- 2184 Nov, [facility] [place] [facility] [address] [id number] [place] [address]- 0652 Oct, [facility] [place] [facility] [address] [id number] [place] [address]- 2159 Oct, [facility] [place] [facility] [address] [id number] [place] [address]- 0681 Oct, [facility] [address] [id number] [place] [address]- 2943 Oct, [facility] [address] [id number] [place] [address]- 2482 Oct, [facility] [address] [id number] [place] [address]- 0113 Sep, [facility] [address] [id number] [place] [address]- 2053 Sep, [facility] [address] [id number] [place] [address]- 1771 Sep, [facility] [address] [id number] [place] [address]- 3834 Sep, [facility] [address] [id number] [place] [address]- 8436 Sep, [facility] [address] [id number] [place] [address]- 9553 Sep, [facility] [address] [id number] [place] [address]- 8054 Aug, [facility] [address] [id number] [place] [address]- 6136 Aug, [facility] [address] [id number] [place] [address]- 2096 July, [facility] [address] [id number] [place] [address]- 9881 July, [facility] [address] [id number] [place] [address] July, [facility] [address] [id number] [place] [address] Jun, [facility] [address] [id number] [place] [address] Jun, [facility] [place] [facility] [address] [id number] [place] [address] 16 Jun, 2012 [facility] [place] [facility] [address] [id number] [place] [address] Jun, [facility] [place] [facility] [address] [id number] [place] [address] May, [facility] [place] [facility] [address] [id number] [place] [address] May, [facility] [place] [facility] [address] [id number] [place] [address] Apr, [facility] [place] [facility] [address] [id number] [place] [address] Apr, [facility] [place] [facility] [address] [id number] [place] [address] Apr, [facility] [place] [facility] [address] [id number] [place] [address] Apr, [facility] [place] [facility] [address] [id number] [place] [address] Apr, [facility] [place] [facility] [address] [id number] [place] [address] Apr, [facility] [place] [facility] [address] [id number] [id number] Apr, [facility] [place] [facility] [address] [id number] [place] [address] Apr, [facility] [place] [facility] [address] [id number] [place] [address] Mar, [facility] [place] [facility] [address] [id number] [place] [address] Mar, [facility] [place] [facility] [address] [id number] [place] [address] Mar, [facility] [place] [facility] [address] [id number] [place] [address] Mar, [facility] [place] [facility] [address] [id number] [place] [address] Jan, [facility] [place] [facility] [address] [id number] [place] [address] Jan, [facility] [place] [facility] [address] [id number] [place] [address] Jan, [facility] [place] [facility] [address] [id number] [place] [address] Jan, [facility] [place] [facility] [address] [id number] [place] [address] Jan, [facility] [place] [facility] [address] [id number] [place] [address] Dec, [facility] [place] [facility] [address] [id number] [place] [address] Dec, [facility] [place] [facility] [address] [id number] [place] [address] Dec, [facility] [place] [facility] [address] [id number] [place] [address] Dec, [facility] [place] [facility] [address] [id number] [place] [address] Nov, [facility] [place] [facility] [address] [id number] [place] [address] Oct, [facility] [place] [facility] [address] [id number] [place] [address] Oct, [facility] [place] [facility] [address] [id number] [place] [address] Oct, [facility] [place] [facility] [address] [id number] [place] [address] Oct, [facility] [place] [facility] [address] [id number] [place] [address] Oct, [facility] [place] [facility] [address] [id number] [place] [address] Sep, [facility] [place] [facility] [address] [id number] [place] [address] Sep, [facility] [place] [facility] [address] [id number] [place] [address] Aug, [facility] [place] [facility] [address] [id number] [place] [address] Aug, [facility] [address] [id number] [place] [address] Aug, [facility] [place] [facility] [address] [id number] [place] [address] Aug, [facility] [address] [id number] [place] [address] July, [facility] [address] [id number] [place] [address] Jun, [facility] [place] [facility] [address] [id number] [place] [address] May, [facility] [place] [facility] [address] [id number] [place] [address] May, [facility] [place] [facility] [address] [id number] [place] [address] May, [facility] [place] [facility] [address] [id number] [place] [address] Mar, [facility] [place] [facility] [address] [id number] [place] [address] Feb, [facility] [place] [facility] [address] [id number] [place] [address] Feb, [facility] [place] [facility] [address] [id number] [place] [address] Jan, [facility] [place] [facility] [address] [id number] [place] [id number] Jan, [facility] [id number] [address] Jan, [facility] [id number] [address] Jan, [facility] [id number] [address] Jan, [facility] [id number] [address] Dec, [facility] [id number] [address] Dec, [facility] [id number] [place] [address] Dec, [facility] [id number] [place] [address] May, [facility] [id number] [place] [address] May, [facility] [id number] [address] Apr, [facility] [id number] [address] Jan, [facility] [id number] [address] Apr, IMMUNIZATIONS No Known Immunizations SOCIAL HISTORY Never Assessed REASON FOR VISIT Controlled Med Refill PLAN OF CARE VITAL SIGNS MEDICATIONS Medication Instructions Dosage Frequency Start Date End Date Duration Status Coats 5-325 MG Orally every 6 hrs PRN 1 tablet July, 28 days Active RESULTS No Results PROCEDURES [...]
--- OUTSIDE RECORDS SUMMARY | 2017-12-19 08:11 | XMS REPORT ---
Author Author CHRISTA GLORIA Organization [facility] Address [address] [place] [address] Care Team Providers Care Geochemist Name Role Phone CHRISTA GLORIA Unavailable PROBLEMS Type Condition ICD9-CM Code RHY32-BT Code Onset Dates Condition Status SNOMED Code Problem Other chronic pain G89.29 Active 57633639 Problem Acute right-sided low back pain with right-sided sciatica M54.41 Active 212001707 Problem Lumbago with sciatica, right side M54.41 Active 403456590 Problem Asymptomatic menopausal state Z78.0 Active 08431978 Problem Episode of recurrent major depressive disorder, unspecified depression episode severity F33.9 Active 745383177 Problem 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 E78.2 Active 340019767 Problem Other chronic pain G89.29 Active 96046406 Problem Anxiety F41.9 Active 36688392 Problem Other organ or system involvement in systemic lupus erythematosus M32.19 Active 06956120 Problem Sciatica M54.30 Active 05088695 Problem Hepatitis C B19.20 Active 36746284 Problem HILARIO (obstructive sleep apnea) G47.33 Active 89006211 Problem 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 [id number] [address] Oct, Other organ or system involvement in systemic lupus erythematosus M32.19 [facility] [address] [id number] [address] Sep, Other organ or system involvement in systemic lupus erythematosus M32.19 [facility] [address] [id number] [address] Aug, Anxiety F41.9 [facility] [address], [place] [address] Aug, Other organ or system involvement in systemic lupus erythematosus M32.19 [facility] [id number] [place] [address] 10637- 8837 July, Medicare annual wellness visit, initial Z00.00 ; Anxiety F41.9 ; HILARIO (obstructive sleep apnea) G47.33 ; Hepatitis C B19.20 ; Other chronic pain G89.29 ; Asymptomatic menopausal state Z78.0 and Episode of recurrent major depressive disorder, unspecified depression episode severity F33.9 [facility] [facility] [id number] [place] [address] 32807- 3674 July, Anxiety F41.9 [place] [id number] [place] [address] 40588- 8885 July, Other organ or system involvement in systemic lupus erythematosus M32.19 [place] [id number] [place] [address] 06537- 6325 July, [place] [id number] [place] [address] 77165- 1615 Jun, Other organ or system involvement in systemic lupus erythematosus M32.19 ; BMI 40.0-44.9, adult Z68.41 ; Other chronic pain G89.29 and Controlled substance agreement signed Z79.899 [place] [id number] [place] [address] 99230- 4817 May, Sciatica M54.30 [place] [address] [id number] [address] 9971 Apr, Sciatica M54.30 [place] [id number] [place] [address] 58961- 1794 Mar, Sciatica M54.30 [place] [id number] [place] [address] 19260- 7576 Feb, Sciatica M54.30 [place] [id number] [place] [address] 25489- 7225 15 Jan, 2017 Sciatica M54.30 [facility] [address] [address]- 5407 14 Jan, 2017 Sciatica M54.30 [place] [id number] [place] [address] 13950- 1102 19 Dec, 2016 Sciatica M54.30 [address] [address] 16145- 7098 Dec, Sciatica M54.30 [place] [address] 52932- 0180 29 Nov, 2016 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 E78.2 ; Chronic seasonal allergic rhinitis due to other allergen J30.2 and Family history of early CAD Z82.49 [place] [id number] [place] [address] 81580- 5861 Nov, Sciatica M54.30 [place] [id number] [place] [address] 50039- 4894 Nov, 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 E78.2 ; Chronic seasonal allergic rhinitis due to other allergen J30.2 ; Family history of early CAD Z82.49 ; Other chronic pain G89.29 and Pain in left shoulder M25.512 [place] [id number] [place] [address] 84107- 3417 11 Nov, 2016 Acute pain of left shoulder M25.512 [place] [id number] [place] [address] 35393- 2544 Oct, Sciatica M54.30 [place] [id number] [place] [address] 21928- 3748 Oct, [place] [id number] [place] [address] 78298- 6427 Sep, Sciatica M54.30 [place] [id number] [place] [address] 32994- 8956 Sep, Acute pain of left shoulder M25.512 [place] [id number] [place] [address] 11371- 0437 Sep, Acute pain of left shoulder M25.512 [place] [id number] [place] [address] 67431- 2749 Aug, Sciatica M54.30 [place] [address] 94571- 5133 Aug, Sciatica M54.30 ; Tobacco abuse Z72.0 and Tobacco abuse counseling Z71.6 [place] [address] 31525- 1403 Aug, Acute pain of left shoulder M25.512 [facility] [id number] [place] [address] 50319 -9541 Aug, Contusion of right shoulder, initial encounter S40.011A ; Acute pain of left shoulder M25.512 and Shortness of breath R06.02 [place] [id number] [place] [address] 48889- 0579 Aug, Lumbago with sciatica, right side M54.41 [place] [id number] [place] [address] 45175- 4793 July, [place] [id number] [place] [address] 35428- 5452 July, Lumbago with sciatica, right side M54.41 [place] [id number] [place] [address] 78641- 3184 Jun, Lumbago with sciatica, right side M54.41 [place] [id number] [place] [address] 90953- 4673 May, Lumbago with sciatica, right side M54.41 [facility] [id number] [place] [address] 01171 -9376 May, Herpes zoster without complication B02.9 [facility] [id number] [place] [address] 18483 -8886 May, Back pain M54.9 and Acute right-sided low back pain with right-sided sciatica M54.41 [facility] [id number] [place] [address] 10577- 2187 Apr, [facility] [address] 90224- 1136 Apr, Lumbago with sciatica, right side M54.41 and Other chronic pain G89.29 [facility] [address] 32377- 8751 Apr, [facility] [id number] [place] [address] 41722- 9320 Mar, [facility] [address] 35515- 8616 Mar, [facility] [id number] [place] [address] 04177- 5757 Feb, [facility] [id number] [place] [address] 08165 -2670 Jan, Urinary frequency R35.0 [facility] [id number] [place] [address] 57333- 6777 Jan, [facility] [id number] [place] [address] 85196- 4736 Dec, [facility] [id number] [place] [address] 23790- 8368 Oct, [facility] [address] 20107- 7896 Sep, [facility] [id number] [place] [address] 48207 -4494 Sep, Foreign body in left foot, initial encounter S90.852A [facility] [address] [id number] [address]- 9702 Aug, [facility] [id number] [place] [address] 38896- 4280 July, Sciatica M54.30 [facility] [id number] [place] [address] 56003- 1108 Jun, [facility] [id number] [place] [address] 02608- 5791 May, Osteoarthritis M19.90 [facility] [id number] [place] [address] 95030- 7472 May, [facility] [id number] [place] [address] 42642- 2450 May, Pain in right hip M25.551 [facility] [id number] [place] [address] 54130 -8556 May, Tinea corporis B35.4 [facility] [id number] [place] [address] 24696- 5177 Apr, Pain in right hip M25.551 [place] [id number] [place] [address] 98169- 9434 Mar, Pain in right hip M25.551 [place] [address] [place] [address] 46479- 5218 Mar, [facility] [id number] [place] [address] 82883- 2983 Feb, Pain in right hip M25.551 [facility] [id number] [place] [address] 86348- 6702 13 Jan, 2015 Acute bronchitis, unspecified organism J20.9 and Cough R05 [facility] [address], [place] [address]- 4296 11 Jan, 2015 Pain in right hip M25.551 [facility] [id number] [address]- 6882 Dec, Pain in right hip M25.551 [facility] [address] [id number] [place] [address]- 7738 Nov, Acute bronchitis 466.0 [facility] [address] [id number] [place] [address]- 8986 Nov, [facility] [address] [id number], [place] [address]- 6792 Oct, [facility] [address] [id number] [place] [address]- 0343 Sep, [facility] [address] [id number] [address]- 0827 Aug, [facility] [id number] [place] [address]- 7675 July, [facility] [address] [id number] [address]- 4153 Jun, [facility] [address] [id number] [place] [address]- 7207 Jun, [facility] [address] [id number] [address]- 0640 May, [facility] [place] [facility] [id number] [address]- 6685 May, [facility] [place] [facility] [address] [facility] [id number], [place] [address]- 4652 Apr, [facility] [place] [facility] [address] [id number] [place] [address]- 7716 Apr, [facility] [place] [facility] [address] [facility] [id number] 8094 Apr, [facility] [place] [facility] [address] [id number] 7706 Apr, [facility] [place] [facility] [address] [facility] [id number] [place] [address]- 1292 06 Apr, 2014 [facility] [address] [id number] [place] [address]- 2222 Apr, [facility] [place] [facility] [address] [id number] [place] [address]- 1132 Mar, [facility] [address] [id number] [place] [address]- 4461 Mar, [facility] [place] [facility] [address] [id number] [place] [address]- 7093 Feb, [facility] [place] [facility] [address] [id number] [place] [address]- 0758 Feb, [facility] [place] [facility] [address] [id number] [place] [address]- 3705 Feb, [facility] [place] [facility] [address] [id number] [place] [address]- 0478 Dec, [facility] [place] [facility] [address] [id number] [place] [address]- 6627 Dec, [facility] [place] [facility] [address] [id number] [place] [address]- 2854 Nov, [facility] [place] [facility] [address] [id number] [place] [address]- 1495 Nov, [facility] [place] [facility] [address] [id number] [place] [address]- 2946 Nov, [facility] [place] [facility] [address] [id number] [place] [address]- 4919 Nov, [facility] [place] [facility] [address] [id number] [place] [address]- 9717 Sep, [facility] [place] [facility] [address] [id number] [place] [address]- 2154 Sep, [facility] [place] [facility] [address] [id number] [place] [address]- 7480 Sep, [facility] [place] [facility] [address] [id number] [place] [address]- 8395 Sep, [facility] [place] [facility] [address] [id number] [place] [address]- 0669 Aug, [facility] [place] [facility] [address] [id number] [place] [address]- 4826 Aug, [facility] [place] [facility] [address] [id number] [place] [address]- 3884 Aug, [facility] [place] [facility] [address] [id number] [place] [address]- 6474 Aug, [facility] [place] [facility] [address] [id number] [place] [address]- 9992 July, [facility] [place] [facility] [address] [id number] [place] [address]- 2400 July, [facility] [place] [facility] [address] [id number] [place] [address]- 8412 Jun, [facility] [place] [facility] [address] [id number] [place] [address]- 8887 Jun, [facility] [place] [facility] [address] [id number] [place] [address]- 8286 Jun, [facility] [place] [facility] [address] [id number] [place] [address]- 6438 Jun, [facility] [place] [facility] [address] [id number] [place] [address]- 7489 Jun, [facility] [place] [facility] [address] [id number] [place] [address]- 3864 Jun, [facility] [place] [facility] [address] [id number] [place] [address]- 8642 Jun, [facility] [place] [facility] [address] [id number] [place] 7464 Jun, [facility] [place] [facility] [address] [id number] [place] [address]- 5255 May, [facility] [place] [facility] [address] [id number] [place] [address]- 2644 May, [facility] [place] [facility] [address] [id number] [place] [address]- 7236 May, [facility] [place] [facility] [address] [id number] [place] [address]- 7804 May, [facility] [place] [facility] [address] [id number] [place] [address]- 0752 May, [facility] [place] [facility] [address] [id number] [place] [address]- 0778 May, [facility] [place] [facility] [address] [id number] [place] [address]- 6445 Apr, [facility] [place] [facility] [address] [id number] [place] [address]- 4122 Apr, [facility] [place] [facility] [address] [id number] [place] [address]- 1562 Apr, [facility] [place] [facility] [address] [id number] [place] [address]- 6645 Apr, [facility] [place] [facility] [address] [facility] [id number] [place] [address]- 6667 Mar, [facility] [place] [facility] [address] [id number] [place] [address]- 8499 Mar, [facility] [place] [facility] [address] [id number] [place] [address]- 9401 Mar, [facility] [place] [facility] [address] [id number] [place] [address]- 6597 Mar, [facility] [place] [facility] [address] [id number] [place] [address]- 8263 Mar, [facility] [place] [facility] [address] [facility] [id number], [place] [address]- 1810 Mar, [facility] [place] [facility] [address] [id number] [place] [address]- 5041 Feb, [facility] [address] [id number] [place] [address]- 0943 Feb, [facility] [place] [facility] [address] [id number] [place] [address]- 8690 Feb, [facility] [address] [id number] [place] [address]- 3401 Feb, [facility] [address] [id number] [place] [address]- 3839 Feb, [facility] [place] [facility] [address] [id number] [place] [address]- 8053 Feb, [facility] [address] [id number] [place] [address]- 9455 Feb, [facility] [address] [id number] [place] [address]- 5369 Feb, [facility] [address] [id number] [place] 9355 Feb, [facility] [address] [id number] [place] [address]- 7869 Feb, [facility] [address] [id number] [place] [address]- 6835 Feb, [facility] [place] [facility] [address] [id number] [place] [address]- 6782 Feb, [facility] [place] [facility] [address] [id number] [place] [address]- 2892 Jan, [facility] [place] [facility] [address] [id number] [place] [address]- 3006 Jan, [facility] [place] [facility] [address] [id number] [place] [address]- 1860 Jan, [facility] [place] [facility] [address] [id number] [place] [address]- 2724 Jan, [facility] [place] [facility] [address] [id number] [place] 6623 Jan, [facility] [place] [facility] [address] [id number] [place] [address]- 6740 Jan, [facility] [place] [facility] [address] [id number] [place] [address]- 3337 Jan, [facility] [place] [facility] [address] [id number] [place] [address]- 6880 Jan, [facility] [place] [facility] [address] [id number] [place] 4219 Jan, [facility] [place] [facility] [address] [id number] [place] [address]- 8037 Jan, [facility] [place] [facility] [address] [id number] [place] [address]- 7376 Dec, [facility] [place] [facility] [address] [id number] [place] [address]- 3500 Dec, [facility] [place] [facility] [address] [id number] [place] [address]- 3373 Nov, [facility] [place] [facility] [address] [id number] [place] [address]- 0409 Nov, [facility] [place] [facility] [address] [id number], [place] [address]- 7610 Nov, [facility] [place] [facility] [address] [id number], [place] [address]- 3211 05 Nov, 2012 [facility] [place] [facility] [address] [id number] [place] [address]- 8384 Nov, [facility] [place] [facility] [address] [id number] [place] [address]- 3088 Oct, [facility] [place] [facility] [address] [id number] [place] [address]- 6167 Oct, [facility] [place] [facility] [address] [id number] [place] [address]- 1840 Oct, [facility] [address] [id number] [place] [address]- 2589 Oct, [facility] [address] [id number] [place] [address]- 8815 Oct, [facility] [address] [id number] [place] [address]- 3886 Sep, [facility] [address] [id number] [place] [address]- 4774 Sep, [facility] [address] [id number] [place] [address]- 1090 Sep, [facility] [address] [id number] [place] [address]- 6505 Sep, [facility] [address] [id number] [place] [address]- 9093 Sep, [facility] [address] [id number] [place] [address]- [address] Sep, [facility] [address] [id number] [place] [address] Aug, [facility] [address] [id number] [place] [address] Aug, [facility] [address] [id number] [place] [address] July, [facility] [address] [id number] [place] [address] July, [facility] [address] [id number] [place] [address] July, [facility] [address] [id number] [place] [address] Jun, [facility] [address] [id number] [place] [address] Jun, [facility] [place] [facility] [address] [id number] [place] [address] 16 Jun, 2012 [facility] [place] [facility] [address] [id number] [place] [address] Jun, [facility] [place] [facility] [address] [id number] [place] [address] May, [facility] [place] [facility] [address] [id number] [place] [address] May, [facility] [place] [facility] [address] [id number] [place] [address] Apr, [facility] [place] [facility] [address] [id number] [place] [address] Apr, [facility] [place] [facility] [address] [id number] [place] [address] Apr, [facility] [place] [facility] [address] [id number], [place] [address] Apr, [facility] [place] [facility] [address] [id number] [place] [address] Apr, [facility] [place] [facility] [address] [id number], [place] [address] Apr, [facility] [place] [facility] [address] [id number] [id number] Apr, [facility] [place] [facility] [address] [id number], [place] [address] Apr, [facility] [place] [facility] [address] [id number] [place] [address] Mar, [facility] [place] [facility] [address] [id number], [place] [address] Mar, [facility] [place] [facility] [address] [id number] [place] [address] Mar, [facility] [place] [facility] [address] [id number] [place] [address] Mar, [facility] [place] [facility] [address] [id number] [place] [address] Jan, [facility] [place] [facility] [address] [id number] [place] [address] Jan, [facility] [place] [facility] [address] [id number] [place] [address] Jan, [facility] [place] [facility] [address] [id number] [place] [address] Jan, [facility] [place] [facility] [address] [id number] [place] [address] Jan, [facility] [place] [facility] [address] [id number] [place] [address] Dec, [facility] [place] [facility] [address] [id number] [place] [address] Dec, [facility] [place] [facility] [address] [id number] [place] [address] Dec, [facility] [place] [facility] [address] [id number] [place] [address] Dec, [facility] [place] [facility] [address] [id number] [place] [address] Nov, [facility] [place] [facility] [address] [id number] [place] [address] Oct, [facility] [place] [facility] [address] [id number] [place] [address] Oct, [facility] [place] [facility] [address] [id number] [place] [address] Oct, [facility] [place] [facility] [address] [id number] [place] [address] Oct, [facility] [place] [facility] [address] [id number] [place] [address] Oct, [facility] [place] [facility] [address] [id number] [place] [address] Sep, [facility] [place] [facility] [address] [id number] [place] [address] Sep, [facility] [place] [facility] [address] [id number] [place] [address] Aug, [facility] [place] [facility] [address] [id number] [place] [address] Aug, [facility] [address] [id number] [place] [address] Aug, [facility] [place] [facility] [address] [id number] [place] [address] Aug, [facility] [address] [id number] [place] [address] July, [facility] [address] [id number] [place] [place] [address] Jun, [facility] [place] [facility] [address] [id number] [place] [address] May, [facility] [place] [facility] [address] [id number] [place] [address] May, [facility] [place] [facility] [address] [id number] [place] [address] May, [facility] [place] [facility] [address] [id number] [place] [address] Mar, [facility] [place] [facility] [address] [id number] [place] [address] Feb, [facility] [place] [facility] [address] [id number] [place] [address] Feb, [facility] [place] [facility] [address] [id number] [place] [address] Jan, [facility] [place] [facility] [address] [id number][place] [address] Jan, [facility] [address] [facility] [id number], [place] [address] Jan, [facility] [address] [facility] [id number], [place] [address] Jan, [facility] [id number], [place] [address] Jan, [facility] [address] [facility] [id number], [place] [address] Dec, [facility] [address] [facility] [id number] [address] Dec, [facility] [id number] [address] Dec, [facility] [id number] [address] May, [facility] [id number], [place] [address] May, 2009 [facility] [address] [id number], [place] [address] Apr, [facility] [address], [place] [address] Jan, [facility] [address] [id number], [place] [address] Apr, IMMUNIZATIONS No Known Immunizations SOCIAL HISTORY Never Assessed REASON FOR VISIT med refill PLAN OF CARE VITAL SIGNS MEDICATIONS Unknown Medications RESULTS No Results PROCEDURES No Known procedures [...]
--- OUTSIDE RECORDS SUMMARY | 2017-12-19 08:12 | XMS REPORT ---
Author Author CHRISTA GLORIA Organization [facility] Address [address] [place] [address] Care Team Providers Care Warehouse Supervisor 3Rd Shift Name Role Phone CHRISTA GLORIA Unavailable PROBLEMS Type Condition ICD9-CM Code SRK11-QT Code Onset Dates Condition Status SNOMED Code Problem Other chronic pain G89.29 Active 82651907 Problem Acute right-sided low back pain with right-sided sciatica M54.41 Active 659805207 Problem Lumbago with sciatica, right side M54.41 Active 498587490 Problem Asymptomatic menopausal state Z78.0 Active 72618030 Problem Episode of recurrent major depressive disorder, unspecified depression episode severity F33.9 Active 935347095 Problem 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 E78.2 Active 876474924 Problem Other chronic pain G89.29 Active 32383168 Problem Anxiety F41.9 Active 13392152 Problem Other organ or system involvement in systemic lupus erythematosus M32.19 Active 88207999 Problem Sciatica M54.30 Active 85095934 Problem Hepatitis C B19.20 Active 02990472 Problem HILARIO (obstructive sleep apnea) G47.33 Active 25151991 Problem 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 Active 457853360 Problem Seborrheic keratoses L82.1 Active 985505692 Problem Urinary frequency R35.0 Active 456379711 ALLERGIES No Information ENCOUNTERS Encounter Location Date Diagnosis [facility] [address] [id number] [address] Sep, Other organ or system involvement in systemic lupus erythematosus M32.19 [facility] [address] [id number] [address] Aug, Anxiety F41.9 [facility] [address] [id number] [address] Aug, Other organ or system involvement in systemic lupus erythematosus M32.19 [address] [place] [address] [place] [address] 54695- 7172 July, Medicare annual wellness visit, initial Z00.00 ; Anxiety F41.9 ; HILARIO (obstructive sleep apnea) G47.33 ; Hepatitis C B19.20 ; Other chronic pain G89.29 ; Asymptomatic menopausal state Z78.0 and Episode of recurrent major depressive disorder, unspecified depression episode severity F33.9 [facility] [id number] [place] [address] 15552- 6662 July, Anxiety F41.9 [facility] [id number] [place] [address] 08635- 1420 July, Other organ or system involvement in systemic lupus erythematosus M32.19 [facility] [id number] [place] [address] 57091- 9668 July, [facility] [id number] [place] [address] 28955- 4157 Jun, Other organ or system involvement in systemic lupus erythematosus M32.19 ; BMI 40.0-44.9, adult Z68.41 ; Other chronic pain G89.29 and Controlled substance agreement signed Z79.899 [place] [address] [place] [address] 67501- 8304 May, Sciatica M54.30 [facility] [id number] [place] [address] 04020- 0816 Apr, Sciatica M54.30 [facility] [id number] [place] [address] 24520 2549 Mar, Sciatica M54.30 [facility] [id number] [place] [address] 11865- 1486 Feb, Sciatica M54.30 [place] [address] [place] [address] 11759- 6258 Jan, Sciatica M54.30 [facility] [id number] [place] [address] 90636- 2259 Jan, Sciatica M54.30 [place] [address] 31927- 9123 Dec, Sciatica M54.30 [facility] [place] [id number] [place] [address] 51392- 8072 Dec, Sciatica M54.30 [facility] [address] 71218- 4226 Nov, 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 E78.2 ; Chronic seasonal allergic rhinitis due to other allergen J30.2 and Family history of early CAD Z82.49 [place] [address] 36822- 9310 Nov, Sciatica M54.30 [place] [address] 78979- 8811 Nov, 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 E78.2 ; Chronic seasonal allergic rhinitis due to other allergen J30.2 ; Family history of early CAD Z82.49 ; Other chronic pain G89.29 and Pain in left shoulder M25.512 [facility] [place] [id number] [place] [address] 04197- 0664 Nov, Acute pain of left shoulder M25.512 [facility] [place] [id number] [place] [address] 15155- 1224 Oct, Sciatica M54.30 [facility] [place] [id number] [place] [address] 61777- 4315 Oct, [facility] [id number] [place] [address] 42690- 8038 Sep, Sciatica M54.30 [facility] [place] [id number] [place] [address] 54776- 1216 Sep, Acute pain of left shoulder M25.512 [place] [address] 98838- 9712 Sep, Acute pain of left shoulder M25.512 [facility] [place] [id number] [place] [address] 97435- 8888 Aug, Sciatica M54.30 [facility] [place] [id number] [place] [address] 22190- 7718 Aug, Sciatica M54.30 ; Tobacco abuse Z72.0 and Tobacco abuse counseling Z71.6 [place] [address] 89874- 6849 Aug, Acute pain of left shoulder M25.512 [facility] [address] 88706 -0072 Aug, Contusion of right shoulder, initial encounter S40.011A ; Acute pain of left shoulder M25.512 and Shortness of breath R06.02 [place] [address] 33729- 8589 Aug, Lumbago with sciatica, right side M54.41 [facility] [place] [id number] [place] [address] 36199- 2774 July, [place] [address] 13235- 7610 July, Lumbago with sciatica, right side M54.41 [facility] [place] [id number] [place] [address] 34247- 9437 Jun, Lumbago with sciatica, right side M54.41 [facility] [id number] [place] [address] 50649- 7448 May, Lumbago with sciatica, right side M54.41 [facility] [address] [address] -4698 May, Herpes zoster without complication B02.9 [facility] [id number] [place] [address] 28068 -7698 May, Back pain M54.9 and Acute right-sided low back pain with right-sided sciatica M54.41 [facility] [id number] [place] [address] 86479- 3823 Apr, [facility] [id number] [place] [address] 33363- 1362 Apr, Lumbago with sciatica, right side M54.41 and Other chronic pain G89.29 [facility] [id number] [place] [address] 52772- 4562 Apr, [facility] [id number] [place] [address] 41285- 7982 Mar, [facility] [id number] [place] [address] 55224- 4418 Mar, [facility] [id number] [place] [address] 69704- 5673 Feb, [facility] [id number] [place] [address] 73236 -2654 Jan, Urinary frequency R35.0 [facility] [address] 49971- 6653 Jan, [facility] [id number] [place] [address] 80632- 8470 Dec, [facility] [id number] [place] [address] 14441- 7347 Oct, [facility] [id number] [place] [address] 86484- 2579 Sep, [facility] [id number] [place] [address] 52020 -0475 Sep, Foreign body in left foot, initial encounter S90.852A [facility] [id number] [place] [address] 89364- 8432 Aug, [facility] [address] 80530- 8041 July, Sciatica M54.30 [facility] [id number] [place] [address] 21591- 6124 Jun, [facility] [id number] [place] [address] 13540- 9634 May, Osteoarthritis M19.90 [facility] [id number] [place] [address] 07243- 5286 May, [facility] [id number] [place] [address] 28271- 0184 May, Pain in right hip M25.551 [facility] [id number] [place] [address] 71311 -8065 May, Tinea corporis B35.4 [facility] [id number] [place] [address] 36683- 1307 Apr, Pain in right hip M25.551 [facility] [id number] [place] [address] 00952- 4091 Mar, Pain in right hip M25.551 [facility] [id number] [place] [address] 85881- 4702 Mar, [facility] [id number] [place] [address] 08606- 2870 Feb, Pain in right hip M25.551 [facility] [id number] [place] [address] 27068- 0922 Jan, Acute bronchitis, unspecified organism J20.9 and Cough R05 [facility] [id number] [place] [address] 19740- 9708 Jan, Pain in right hip M25.551 [facility] [id number] [place] [address] 97753- 8460 02 Dec, 2014 Pain in right hip M25.551 [facility] [address] [place] [address]- 5454 Nov, Acute bronchitis 466.0 [facility] [address] [id number] [place] [address]- 6321 Nov, [facility] [place] [facility] [address] [id number] [place] [address]- 5323 Oct, [facility] [place] [facility] [address] [id number] [place] [address]- 1219 Sep, [facility] [place] [facility] [address] [id number] [place] [address]- 5243 Aug, [facility] [place] [facility] [address] [id number] [place] [address]- 9096 July, [facility] [place] [facility] [address] [id number] [place] [address]- 1897 Jun, [facility] [place] [facility] [id number] [place] [address]- 7298 Jun, [facility] [place] [facility] [address] [id number] [place] [address]- 4366 May, [facility] [place] [facility] [id number] [place] [address]- 9829 May, [facility] [place] [facility] [address] [id number] [place] [address]- 4565 Apr, [facility] [place] [facility] [address] [id number] [place] [address]- 6612 Apr, [facility] [place] [facility] [address] [id number] [place] [address]- 5259 Apr, [facility] [place] [facility] [address] [id number] [place] 3433 Apr, [facility] [place] [facility] [address] [id number] [place] [address]- 9260 Apr, [facility] [place] [facility] [id number] [place] [address]- 7052 Apr, [facility] [place] [facility] [address] [id number] [place] [address]- 3800 Mar, [facility] [place] [facility] [address] [id number] [place] [address]- 8339 Mar, [facility] [place] [facility] [address] [id number] [place] [address]- 6416 Feb, [facility] [place] [facility] [address] [id number] [place] [address]- 7028 Feb, [facility] [place] [facility] [address] [id number] [place] [address]- 8574 Feb, [facility] [place] [facility] [address] [id number] [place] [address]- 9437 Dec, [facility] [place] [facility] [address] [id number] [place] [address]- 2211 Dec, [facility] [place] [facility] [address] [id number] [place] [address]- 1935 Nov, [facility] [place] [facility] [address] [id number] [place] [address]- 2746 Nov, [facility] [place] [facility] [address] [id number] [place] [address]- 6543 Nov, [facility] [place] [facility] [address] [id number] [address]- 5218 Nov, [facility] [place] [facility] [address] [id number] [address]- 8236 Sep, [facility] [place] [facility] [address] [id number] [place] [address]- 1253 Sep, [facility] [place] [facility] [address] [id number] [address]- 5491 Sep, [facility] [place] [facility] [address] [id number] [place] [address]- 5588 Sep, [facility] [place] [facility] [address] [id number] [place] [address]- 8968 Aug, [facility] [place] [facility] [address] [id number] [place] [address]- 3872 Aug, [facility] [place] [facility] [address] [id number] [place] [address]- 1148 Aug, [facility] [place] [facility] [address] [id number] [place] [address]- 2739 Aug, [facility] [place] [facility] [address] [id number] [place] [address]- 2639 July, [facility] [place] [facility] [address] [id number] [place] [address]- 7175 July, [facility] [place] [facility] [address] [id number] [place] [address]- 5768 Jun, [facility] [place] [facility] [address] [id number] [place] [address]- 8323 Jun, [facility] [place] [facility] [address] [id number] [place] [address]- 4024 Jun, [facility] [place] [facility] [address] [id number] [place] [address]- 1145 Jun, [facility] [place] [facility] [address] [id number] [place] [address]- 1127 Jun, [facility] [place] [facility] [address] [id number] [place] [address]- 8056 Jun, [facility] [place] [facility] [address] [id number] [place] [address]- 2902 Jun, [facility] [place] [facility] [address] [id number] [place] [address]- 2828 Jun, [facility] [place] [facility] [address] [id number] [place] [address]- 9558 May, [facility] [place] [facility] [address] [id number] [place] [address]- 4886 May, [facility] [place] [facility] [address] [id number] [place] [address]- 0814 May, [facility] [place] [facility] [address] [id number] [place] [address]- 1575 May, [facility] [place] [facility] [address] [id number] [place] [address]- 5194 May, [facility] [place] [facility] [address] [id number] [place] [address]- 1127 May, [facility] [place] [facility] [address] [id number] [place] [address]- 3712 Apr, [facility] [place] [facility] [address] [id number] [place] [address]- 0668 Apr, [facility] [place] [facility] [address] [id number] [place] [address]- 6821 Apr, [facility] [place] [facility] [address] [id number] [place] [address]- 7002 Apr, [facility] [place] [facility] [address] [id number] [place] [address]- 1384 Mar, [facility] [place] [facility] [address] [id number] [place] [address]- 0794 Mar, [facility] [place] [facility] [address] [id number] [place] [address]- 3130 Mar, [facility] [place] [facility] [address] [id number] [place] [address]- 6707 Mar, [facility] [place] [facility] [address] [id number] [place] [address]- 8008 Mar, [facility] [place] [facility] [address] [id number] [place] [address]- 2191 Mar, [facility] [place] [facility] [address] [id number] [place] [address]- 6339 Feb, [facility] [place] [facility] [address] [id number] [place] [address]- 5658 Feb, [facility] [address] [id number] [place] [address]- 1673 Feb, [facility] [address] [id number] [place] [address]- 6689 Feb, [facility] [address] [id number] [place] [address]- 5343 Feb, [facility] [address] [id number] [place] [address]- 7922 Feb, [facility] [address] [id number] [place] [address]- 0801 Feb, [facility] [address] [id number] [place] [address]- 1260 Feb, [facility] [address] [id number] [place] [address]- 8726 Feb, [facility] [address] [id number] [address]- 3682 Feb, [facility] [address] [id number] [place] [address]- 1540 Feb, [facility] [address] [id number] [place] [address]- 8261 Feb, [facility] [address] [id number] [address]- 4882 Jan, [facility] [place] [facility] [address] [id number] [place] [address]- 3855 Jan, [facility] [place] [facility] [address] [id number] [place] [address]- 7406 Jan, [facility] [place] [facility] [address] [id number] [place] [address]- 2206 Jan, [facility] [address] [id number] [address]- 2852 Jan, [facility] [place] [facility] [address] [id number] [place] [address]- 1688 Jan, [facility] [place] [facility] [address] [id number] [place] [address]- 1697 Jan, [facility] [place] [facility] [address] [id number] [place] [address]- 8371 Jan, [facility] [place] [facility] [address] [id number] [place] [address]- 0071 Jan, [facility] [place] [facility] [address] [id number] [place] [address]- 6804 Jan, [facility] [place] [facility] [address] [id number] [place] [address]- 5165 Dec, [facility] [place] [facility] [address] [id number] [place] [address]- 6455 Dec, [facility] [place] [facility] [address] [id number] [place] [address]- 5170 Nov, [facility] [place] [facility] [address] [id number] [place] [address]- 0543 Nov, [facility] [place] [facility] [address] [id number] [place] [address]- 5702 Nov, [facility] [place] [facility] [address] [id number] [place] [address]- 6707 05 Nov, 2012 [facility] [place] [facility] [address] [id number] [place] [address]- 2540 Nov, [facility] [place] [facility] [address] [id number] [place] [address]- 5219 Oct, [facility] [place] [facility] [address] [id number] [place] [address] 2543 Oct, [facility] [place] [facility] [address] [id number] [place] [address]- 9082 Oct, [facility] [place] [facility] [address] [id number] [place] [address]- 6621 Oct, [facility] [address] [id number] [place] [address]- 8388 Oct, [facility] [place] [facility] [address] [id number] [place] [address]- 8447 Sep, [facility] [place] [facility] [address] [id number] [place] [address]- 3266 Sep, [facility] [place] [facility] [address] [id number] [place] [address]- 3010 Sep, [facility] [place] [facility] [address] [id number] [place] [address]- 1030 Sep, [facility] [place] [facility] [address] [id number] [place] [address]- 0760 Sep, [facility] [place] [facility] [address] [id number] [place] [address]- 6205 Sep, [facility] [place] [facility] [address] [id number] [place] [address]- 0112 Aug, [facility] [place] [facility] [address] [id number] [place] [address]- 8987 Aug, [facility] [place] [facility] [address] [id number] [place] [address]- 7462 July, [facility] [place] [facility] [address] [id number] [place] [address]- 3651 July, [facility] [place] [facility] [address] [id number] [place] [address]- 5418 July, [facility] [place] [facility] [address] [id number] [place] [address]- 1252 Jun, [facility] [place] [facility] [address] [id number] [place] [address]- 0885 Jun, [facility] [place] [facility] [address] [id number] [place] [address] Jun, [facility] [place] [facility] [address] [id number] [place] [address] Jun, [facility] [place] [facility] [address] [id number] [place] [address] May, [facility] [place] [facility] [address] [id number] [place] [address] May, [facility] [place] [facility] [address] [id number] [place] [address] Apr, [facility] [place] [facility] [address] [id number] [place] [address] Apr, [facility] [place] [facility] [address] [id number] [place] [address] Apr, [facility] [place] [facility] [address] [id number] [place] [address] Apr, [facility] [place] [facility] [address] [id number] [place] [address] Apr, [facility] [place] [facility] [address] [id number] [place] [address] Apr, [facility] [place] [facility] [address] [facility] [id number] [place] [id number] Apr, [facility] [place] [facility] [address] [id number] [place] [address] Apr, [facility] [place] [facility] [address] [id number] [place] [address] Mar, [facility] [place] [facility] [address] [id number] [place] [address] Mar, [facility] [place] [facility] [address] [id number] [place] [address] Mar, [facility] [place] [facility] [address] [id number] [place] [address] Mar, [facility] [place] [facility] [address] [facility] [address] [id number] [place] [address] Jan, [facility] [place] [facility] [address] [id number] [place] [address] Jan, [facility] [place] [facility] [address] [id number] [place] [address] Jan, [facility] [place] [facility] [address] [id number] [place] [address] Jan, [facility] [place] [facility] [address] [id number] [place] [address] Jan, [facility] [place] [facility] [address] [id number] [place] [address] Dec, [facility] [place] [facility] [address] [id number] [place] [address] Dec, [facility] [place] [facility] [address] [id number] [place] [address] Dec, [facility] [place] [facility] [address] [id number] [place] [address] Dec, [facility] [place] [facility] [address] [id number] [place] [address] Nov, [facility] [place] [facility] [address] [id number] [place] [address] Oct, [facility] [place] [facility] [address] [id number] [place] [address] Oct, [facility] [place] [facility] [address] [id number] [address] Oct, [facility] [place] [facility] [address] [id number] [place] [address] Oct, [facility] [place] [facility] [address] [id number] [place] [address] Oct, [facility] [place] [facility] [address] [id number] [place] [address] Sep, [facility] [place] [facility] [address] [id number] [place] [address] 30 Sep, 2011 [facility] [place] [facility] [address] [id number] [place] [address] 25 Aug, 2011 [facility] [place] [facility] [address] [id number] [place] [address] 23 Aug, 2011 [facility] [place] [facility] [address] [id number] [place] [address] Aug, [facility] [place] [facility] [address] [id number] [place] [address] Aug, [facility] [place] [facility] [address] [id number] [place] [address] July, [facility] [place] [facility] [address] [id number] [place] [address] Jun, [facility] [place] [facility] [address] [id number] [place] [address] May, [facility] [place] [facility] [address] [id number] [place] [address] May, [facility] [place] [facility] [address] [id number] [place] [address] May, [facility] [place] [facility] [address] [id number] [place] [address] 30 Mar, 2011 [facility] [place] [facility] [address] [id number] [place] [address] Feb, [facility] [place] [facility] [address] [id number] [place] [address] Feb, [facility] [place] [facility] [address] [id number] [place] [address] Jan, [facility] [place] [facility] [address] [id number] [place] [address] Jan, [facility] [place] [facility] [address] [id number] [place] [address] Jan, [facility] [id number] [address] Jan, [facility] [id number] [address] Jan, [facility] [facility] [id number] [address] Dec, [facility] [address] [address] Dec, [facility] [address] [address] Dec, [facility] [id number] [address] May, [facility] [id number] [address] May, [facility] [address] [address] Apr, [facility] [id number] [address] Jan, [facility] [id number] [address] Apr, IMMUNIZATIONS No Known Immunizations SOCIAL HISTORY Never Assessed REASON FOR VISIT Controlled Med Refill 05/29/17 PLAN OF CARE VITAL SIGNS MEDICATIONS Medication Instructions Dosage Frequency Start Date End Date Duration Status [place] 5-325 MG Orally every 6 hrs PRN 1 tablet May, 28 days Active RESULTS No Results PROCEDURES [...]
--- OUTSIDE RECORDS SUMMARY | 2017-12-19 08:12 | XMS REPORT ---
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 Role Phone CHRISTA GLORIA Unavailable PROBLEMS Type Condition ICD9-CM Code RDI01-NK Code Onset Dates Condition Status SNOMED Code Problem Other chronic pain G89.29 Active 98674414 Problem Acute right-sided low back pain with right-sided sciatica M54.41 Active 719567401 Problem Lumbago with sciatica, right side M54.41 Active 454431331 Problem Asymptomatic menopausal state Z78.0 Active 03997573 Problem Episode of recurrent major depressive disorder, unspecified depression episode severity F33.9 Active 067898098 Problem 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 E78.2 Active 374845752 Problem Other chronic pain G89.29 Active 27927142 Problem Anxiety F41.9 Active 74785143 Problem Other organ or system involvement in systemic lupus erythematosus M32.19 Active 06896292 Problem Sciatica M54.30 Active 05172655 Problem Hepatitis C B19.20 Active 32727117 Problem HILARIO (obstructive sleep apnea) G47.33 Active 59430417 Problem 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 Active 096167059 Problem Seborrheic keratoses L82.1 Active 239695935 Problem Urinary frequency R35.0 Active 292074275 ALLERGIES Substance Reaction Event Type Date Status Cymbalta drowsiness Drug Allergy Jun, Active ENCOUNTERS Encounter Location Date Diagnosis [facility] [id number] [address] Sep, Other organ or system involvement in systemic lupus erythematosus M32.19 [facility] [id number] [address] Aug, Anxiety F41.9 [facility] [id number] [place] [address] 20537- 0755 Aug, Other organ or system involvement in systemic lupus erythematosus M32.19 [place] [id number] [place] [address] 64336- 6580 July, Medicare annual wellness visit, initial Z00.00 ; Anxiety F41.9 ; HILARIO (obstructive sleep apnea) G47.33 ; Hepatitis C B19.20 ; Other chronic pain G89.29 ; Asymptomatic menopausal state Z78.0 and Episode of recurrent major depressive disorder, unspecified depression episode severity F33.9 [place] [id number] [place] [address] 40241- 6643 July, Anxiety F41.9 [place] [id number] [place] [address] 46451- 4338 July, Other organ or system involvement in systemic lupus erythematosus M32.19 [place] [id number] [place] [address] 44811- 8245 July, [place] [id number] [place] [address] 83637- 6380 Jun, Other organ or system involvement in systemic lupus erythematosus M32.19 ; BMI 40.0-44.9, adult Z68.41 ; Other chronic pain G89.29 and Controlled substance agreement signed Z79.899 [place] [id number] [place] [address] 05552- 1064 May, Sciatica M54.30 [place] [id number] [place] [address] 55281- 5334 Apr, Sciatica M54.30 [place] [id number] [place] [address] 85085- 1948 Mar, Sciatica M54.30 [place] [id number] [place] [address] 46721- 2873 Feb, Sciatica M54.30 [place] [id number] [place] [address] 81932- 8008 15 Jan, 2017 Sciatica M54.30 [facility] [id number] [place] [address] 64769- 3625 14 Jan, 2017 Sciatica M54.30 [facility] [id number] [place] [address] 90587- 2509 19 Dec, 2016 Sciatica M54.30 [facility] [id number] [place] [address] 15170- 7749 18 Dec, 2016 Sciatica M54.30 [facility] [id number] [place] [address] 80977- 7507 29 Nov, 2016 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 E78.2 ; Chronic seasonal allergic rhinitis due to other allergen J30.2 and Family history of early CAD Z82.49 [place] [id number] [place] [address] 05803- 6473 Nov, Sciatica M54.30 [place] [id number] [place] [address] 39729- 1418 18 Nov, 2016 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 E78.2 ; Chronic seasonal allergic rhinitis due to other allergen J30.2 ; Family history of early CAD Z82.49 ; Other chronic pain G89.29 and Pain in left shoulder M25.512 [place] [id number] [place] [address] 79974- 3939 11 Nov, 2016 Acute pain of left shoulder M25.512 [place] [id number] [place] [address] 54220- 4532 Oct, Sciatica M54.30 [facility] [id number] [place] [address] 51540- 2828 Oct, [place] [id number] [place] [address] 55990- 5215 Sep, Sciatica M54.30 [facility] [id number] [place] [address] 80994- 2182 Sep, Acute pain of left shoulder M25.512 [place] [id number] [place] [address] 03000- 9038 Sep, Acute pain of left shoulder M25.512 [place] [id number] [place] [address] 35507- 4032 Aug, Sciatica M54.30 [place] [id number] [place] [address] 92709- 8836 Aug, Sciatica M54.30 ; Tobacco abuse Z72.0 and Tobacco abuse counseling Z71.6 [place] [id number] [place] [address] 95428- 4712 Aug, Acute pain of left shoulder M25.512 [facility] [place] [address] [address] -3599 Aug, Contusion of right shoulder, initial encounter S40.011A ; Acute pain of left shoulder M25.512 and Shortness of breath R06.02 [place] [address] 30793- 8842 Aug, Lumbago with sciatica, right side M54.41 [place] [address] 00616- 2367 July, [place] [id number] [place] [address] 63931- 9627 July, Lumbago with sciatica, right side M54.41 [place] [id number] [place] [address] 60080- 1464 Jun, Lumbago with sciatica, right side M54.41 [place] [id number] [place] [address] 15202- 5982 May, Lumbago with sciatica, right side M54.41 [facility] [place] [id number] [place] [address] 92868 -5114 May, Herpes zoster without complication B02.9 [facility] [id number] [place] [address] 80092 -2243 May, Back pain M54.9 and Acute right-sided low back pain with right-sided sciatica M54.41 [facility] [id number] [place] [address] 61069- 5438 Apr, [facility] [id number] [place] [address] 71776- 6250 Apr, Lumbago with sciatica, right side M54.41 and Other chronic pain G89.29 [facility] [id number] [place] [address] 66449- 4091 Apr, [facility] [address] 85739- 4116 Mar, [facility] [id number] [place] [address] 39873- 5840 Mar, [facility] [id number] [place] [address] 55887- 2372 Feb, [facility] [id number] [place] [address] 72662 -4051 Jan, Urinary frequency R35.0 [facility] [id number] [place] [address] 56012- 7142 Jan, [facility] [id number] [place] [address] 63661- 3927 Dec, [facility] [id number] [place] [address] 12722- 4602 Oct, [facility] [id number] [place] [address] 73280- 8691 Sep, [facility] [id number] [place] [address] 32428 -9099 Sep, Foreign body in left foot, initial encounter S90.852A [facility] [id number] [place] [address] 13216- 7902 Aug, [facility] [address] [address]- 4039 July, Sciatica M54.30 [facility] [id number] [place] [address] 00922- 9284 Jun, [facility] [id number] [place] [address] 92744- 3410 May, Osteoarthritis M19.90 [facility] [id number] [place] [address] 86662- 0819 May, [facility] [id number] [place] [address] 26123- 9798 May, Pain in right hip M25.551 [facility] [id number] [place] [address] 23720 -6128 May, Tinea corporis B35.4 [place] [id number] [place] [address] 43080- 5100 Apr, Pain in right hip M25.551 [facility] [id number] [place] [address] 33801- 9005 Mar, Pain in right hip M25.551 [place] [id number] [place] [address] 01371- 1995 Mar, [place] [id number] [place] [address] 55261- 3312 Feb, Pain in right hip M25.551 [facility] [id number] [place] [address] 93478- 9139 Jan, Acute bronchitis, unspecified organism J20.9 and Cough R05 [place] [id number] [place] [address] 44965- 3535 Jan, Pain in right hip M25.551 [facility] [id number] [place] [address] 48016- 5238 Dec, Pain in right hip M25.551 [facility] [place] [facility] [address] [id number] [place] [address]- 4957 Nov, Acute bronchitis 466.0 [facility] [place] [facility] [address] [id number] [place] [address]- 5066 Nov, [facility] [place] [facility] [id number] [place] [address]- 3950 Oct, [facility] [place] [facility] [address] [id number] [place] [address]- 4918 Sep, [facility] [place] [facility] [address] [id number] [place] [address]- 6626 Aug, [facility] [place] [facility] [address] [id number] [place] [address]- 8287 July, [facility] [place] [facility] [address] [id number] [place] [address]- 1254 Jun, [facility] [place] [facility] [address] [id number] [place] [address]- 3405 Jun, [facility] [place] [facility] [address] [id number] [place] [address]- 6145 May, [facility] [place] [facility] [address] [id number] [place] [address]- 1060 May, [facility] [place] [facility] [id number] [place] [address]- 5376 Apr, [facility] [place] [facility] [address] [id number] [place] [address]- 6319 Apr, [facility] [place] [facility] [address] [id number] [place] [address]- 2281 Apr, [facility] [place] [facility] [address] [facility] [id number] [place] [address]- 9765 Apr, [facility] [place] [facility] [id number] 0519 Apr, [facility] [place] [facility] [address] [id number] [place] [address]- 2546 Apr, [facility] [place] [facility] [address] [id number] [place] [address]- 1372 Mar, [facility] [place] [facility] [address] [id number] [place] [address]- 2546 Mar, [facility] [place] [facility] [address] [id number] [place] [address]- 2687 Feb, [facility] [place] [facility] [address] [id number] [place] [address]- 1768 Feb, [facility] [place] [facility] [address] [id number] [place] [address]- 9534 Feb, [facility] [place] [facility] [address] [id number] [place] [address]- 9326 Dec, [facility] [place] [facility] [address] [id number] [place] [address]- 1923 Dec, [facility] [place] [facility] [address] [id number] [place] [address]- 3503 Nov, [facility] [place] [facility] [address] [id number] [place] [address]- 8265 Nov, [facility] [place] [facility] [address] [id number] [place] [address]- 8425 Nov, [facility] [place] [facility] [address] [id number] [place] [address]- 3682 Nov, [facility] [place] [facility] [address] [id number] [place] [address]- 6803 Sep, [facility] [place] [facility] [address] [id number] [place] [address]- 3132 Sep, [facility] [place] [facility] [address] [id number] [place] [address]- 2546 Sep, [facility] [place] [facility] [address] [id number] [place] [address]- 4414 Sep, [facility] [place] [facility] [address] [id number] [place] [address]- 8502 Aug, [facility] [place] [facility] [address] [id number] [place] [address]- 2469 Aug, [facility] [place] [facility] [address] [id number] [place] [address]- 4245 Aug, [facility] [place] [facility] [address] [id number] [place] [address]- 7552 Aug, [facility] [place] [facility] [address] [id number] [place] [address]- 8824 July, [facility] [place] [facility] [address] [id number] [place] [address]- 6564 July, [facility] [place] [facility] [address] [id number] [place] [address]- 5878 Jun, [facility] [place] [facility] [address] [id number] [place] [address]- 7621 Jun, [facility] [place] [facility] [address] [id number] [place] [address]- 3812 Jun, [facility] [place] [facility] [address] [id number] [place] [address]- 5298 Jun, [facility] [place] [facility] [address] [id number] [place] [address]- 7314 Jun, [facility] [place] [facility] [address] [id number] [place] [address]- 9719 Jun, [facility] [place] [facility] [address] [id number] [place] [address]- 1336 Jun, [facility] [place] [facility] [address] [id number] [place] [address]- 4711 Jun, [facility] [place] [facility] [address] [id number] [place] [address]- 2798 May, [facility] [place] [facility] [address] [id number] [place] [address]- 6985 May, [facility] [place] [facility] [address] [id number] [place] [address]- 1021 May, [facility] [place] [facility] [address] [id number] [place] [address]- 0399 May, [facility] [place] [facility] [address] [id number] [place] [address]- 9881 May, [facility] [place] [facility] [address] [id number] [place] [address]- 9521 May, [facility] [place] [facility] [address] [id number] [place] [address]- 1505 Apr, [facility] [place] [facility] [address] [id number] [place] [address]- 7316 Apr, [facility] [place] [facility] [address] [id number] [place] [address]- 6377 Apr, [facility] [place] [facility] [address] [id number] [place] [address]- 6174 Apr, [facility] [place] [facility] [address] [id number] [place] [address]- 5173 Mar, [facility] [place] [facility] [address] [id number] [place] [address]- 3207 Mar, [facility] [place] [facility] [address] [id number] [place] [address]- 2197 Mar, [facility] [place] [facility] [address] [id number] [place] [address]- 3490 Mar, [facility] [place] [facility] [address] [id number] [place] [address]- 5667 Mar, [facility] [place] [facility] [address] [id number] [place] [address]- 6259 Mar, [facility] [place] [facility] [address] [id number] [place] [address]- 6640 Feb, [facility] [address] [id number] [place] [address]- 1564 Feb, [facility] [place] [facility] [address] [id number] [place] [address]- 7776 Feb, [facility] [place] [facility] [address] [id number] [place] [address]- 8746 Feb, [facility] [place] [facility] [address] [id number] [place] [address]- 9846 Feb, [facility] [address] [id number] [place] [address]- 3646 Feb, [facility] [place] [facility] [address] [id number] [place] [address]- 5456 Feb, [facility] [address] [id number] [place] [address]- 4783 Feb, [facility] [address] [id number] [address]- 4091 Feb, [facility] [place] [facility] [address] [id number] [place] [address]- 2891 Feb, [facility] [place] [facility] [address] [id number] [address]- 1094 Feb, [facility] [place] [facility] [address] [id number] [address]- 8896 Feb, [facility] [place] [facility] [address] [id number] [address]- 7441 Jan, [facility] [place] [facility] [address] [id number] [place] [address]- 1996 Jan, [facility] [place] [facility] [address] [id number] [place] [address]- 1986 Jan, [facility] [place] [facility] [address] [facility] [id number] [place] [address]- 4449 Jan, [facility] [place] [facility] [address] [id number] [place] [address]- 4434 Jan, [facility] [place] [facility] [address] [id number] [place] [address]- 8136 Jan, [facility] [place] [facility] [address] [id number] [place] [address]- 1701 Jan, [facility] [place] [facility] [address] [id number] [place] [address]- 1018 Jan, [facility] [place] [facility] [address] [id number] [place] [address]- 5685 Jan, [facility] [place] [facility] [address] [id number] [place] [address]- 5151 Jan, [facility] [place] [facility] [address] [id number] [place] [address]- 5722 Dec, [facility] [place] [facility] [address] [id number] [place] [address]- 1652 Dec, [facility] [place] [facility] [address] [id number] [place] [address]- 2261 Nov, [facility] [place] [facility] [address] [id number] [place] [address]- 1895 Nov, [facility] [place] [facility] [address] [facility] [id number] [place] [address]- 2025 Nov, [facility] [place] [facility] [address] [id number] [place] [address]- 6551 Nov, [facility] [place] [facility] [address] [id number] [place] [address]- 7192 Nov, [facility] [place] [facility] [address] [id number] [place] [address]- 8713 Oct, [facility] [place] [facility] [address] [id number] [place] [address]- 0235 Oct, [facility] [place] [facility] [address] [id number] [place] [address]- 2228 Oct, [facility] [place] [facility] [address] [id number] [place] [address]- 2546 Oct, [facility] [address] [id number] [place] [address]- 8832 Oct, [facility] [place] [facility] [address] [id number] [place] [address]- 2546 Sep, [facility] [place] [facility] [address] [id number] [place] [address]- 0157 Sep, [facility] [place] [facility] [address] [id number] [place] [address]- 9308 Sep, [facility] [place] [facility] [address] [id number] [place] [address]- 9356 Sep, [facility] [place] [facility] [address] [id number] [place] [address]- 4496 Sep, [facility] [place] [facility] [address] [id number] [place] [address]- 8331 Sep, [facility] [place] [facility] [address] [id number] [place] [address]- 9909 Aug, [facility] [place] [facility] [address] [id number] [place] [address] Aug, [facility] [place] [facility] [address] [id number] [place] [address] July, [facility] [place] [facility] [address] [id number] [place] [address] July, [facility] [place] [facility] [address] [id number] [place] [address] July, [facility] [place] [facility] [address] [id number] [place] [address] Jun, [facility] [place] [facility] [address] [id number] [place] [address] Jun, [facility] [place] [facility] [address] [id number] [place] [address] Jun, [facility] [place] [facility] [address] [id number] [place] [address] Jun, [facility] [place] [facility] [address] [id number] [place] [address] May, [facility] [place] [facility] [address] [id number] [place] [address] May, [facility] [place] [facility] [address] [id number] [place] [address] Apr, [facility] [place] [facility] [address] [id number] [place] [address] Apr, [facility] [place] [facility] [address] [id number] [place] [address] Apr, [facility] [place] [facility] [address] [id number] [place] [address] Apr, [facility] [place] [facility] [address] [id number] [place] [address]- [address] Apr, [facility] [place] [facility] [address] [id number] [place] [address] Apr, [facility] [place] [facility] [address] [id number] [place] [id number] Apr, [facility] [place] [facility] [address] [id number] [place] [address] Apr, [facility] [place] [facility] [address] [id number] [place] [address] Mar, [facility] [place] [facility] [address] [id number] [place] [address] Mar, [facility] [place] [facility] [address] [id number] [place] [address] Mar, [facility] [place] [facility] [address] [id number] [place] [address] Mar, [facility] [place] [facility] [address] [id number] [place] [address] Jan, [facility] [place] [facility] [address] [id number] [place] [address] Jan, [facility] [place] [facility] [address] [id number] [place] [address] Jan, [facility] [place] [facility] [address] [id number] [place] [address] Jan, [facility] [place] [facility] [address] [id number] [place] [address] Jan, [facility] [place] [facility] [address] [id number] [place] [address] Dec, [facility] [place] [facility] [address] [id number] [place] [address] Dec, [facility] [place] [facility] [address] [id number] [place] [address] Dec, [facility] [place] [facility] [address] [id number] [place] [address] Dec, [facility] [place] [facility] [address] [id number] [place] [address] Nov, [facility] [place] [facility] [address] [id number] [place] [address] Oct, [facility] [place] [facility] [address] [id number] [place] [address] Oct, [facility] [place] [facility] [address] [id number] [place] [address] Oct, [facility] [place] [facility] [address] [id number] [place] [address] Oct, [facility] [place] [facility] [address] [id number] [place] [address] Oct, [facility] [place] [facility] [address] [id number] [place] [address] Sep, [facility] [place] [facility] [address] [id number] [place] [address] 30 Sep, 2011 [facility] [place] [facility] [address] [id number] [place] [address] Aug, [facility] [place] [facility] [address] [id number] [place] [address]- [address] Aug, [facility] [place] [facility] [address] [id number] [place] [address]- [address] Aug, [facility] [place] [facility] [address] [id number] [place] [address]- [address] Aug, [facility] [place] [facility] [address] [id number] [place] [address] July, [facility] [place] [facility] [address] [id number] [place] [address] Jun, [facility] [place] [facility] [address] [id number] [place] [address] May, [facility] [place] [facility] [address] [id number] [place] [address]- [address] May, [facility] [place] [facility] [address] [id number] [place] [address] May, [facility] [place] [facility] [address] [id number] [place] [address] Mar, [facility] [place] [facility] [address] [id number] [place] [address] Feb, [facility] [place] [facility] [address] [id number] [place] [address] Feb, [facility] [place] [facility] [address] [id number] [place] [address] Jan, [facility] [place] [facility] [address] [id number] [place] [address] Jan, [facility] [place] [facility] [address] [id number] [address] Jan, [facility] [id number] [address] Jan, [facility] [id number] [address] Jan, [facility] [id number] [address] Dec, [facility] [id number] [place] [id number] Dec, [facility] [id number] [place] [address] Dec, [facility] [id number] [place] [id number] May, [facility] [id number] [place] [id number] May, [facility] [id number] [address] Apr, [facility] [id number] [address] Jan, [facility] [id number] [address] Apr, IMMUNIZATIONS No Known Immunizations SOCIAL HISTORY Never Assessed REASON FOR VISIT Pain management (chronic) elizabeth arora, States is feeling more unsteady on feet, needing additional assistance to keep from falling. States has been getting worse since last seen. , Continues to have shortness of breath with minimal exertion. Denies shortness of breath while in lying position. Denies chest pain with exertion. Wants to discuss restarting wellbutrin for smoking cessation. PLAN OF CARE VITAL SIGNS Height 61 in 2017-06-25 Weight 215.5 lbs 2017-06-25 Temperature 98.4 degrees Fahrenheit 2017-06-25 Heart Rate 94 bpm 2017-06-25 Respiratory Rate 20 2017-06-25 Oximetry 97 % 2017-06-25 BMI 40.71 kg/m2 2017-06-25 Blood pressure systolic 136 mmHg 2017-06-25 Blood pressure diastolic 84 mmHg 2017-06-25 MEDICATIONS Medication Instructions Dosage Frequency Start Date End Date Duration Status Multivitamins Orally Once a day 1 tablet 24h Active Naproxen Sodium 500 MG Orally Twice a day 1 tablet 12h Active Zocor 40 MG 1 tablet 24h 05 Nov, 2012 Active Plaquenil 200 mg 2 tablets 24h Active Fluoxetine HCl 10 MG Orally Once a day 1 capsule in the morning 24h 30 Not-Taking PredniSONE 10 MG Orally Once a day 1 tablet 24h Active [place] 5-325 MG Orally every 6 hrs PRN 1 tablet Jun, 28 days Active Wellbutrin SR 150 MG Orally Twice a day 1 tablet 12h Jun, 30 day(s) Active EVAN-e 400 MG Active RESULTS No Results PROCEDURES Procedure Date Ordered Result Body Site DRUG TEST PRSMV CHEM ANLYZR June 25, 2017 DRUG SCREEN AMPHETAMINES 03/25June 25, 2017 [facility] PATIENT June 25, 2017 INSTRUCTIONS MEDICATIONS ADMINISTERED No Known Medications [...]
--- OUTSIDE RECORDS SUMMARY | 2017-12-19 08:13 | XMS REPORT ---
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 Active 495701908 Problem Sciatica M54.30 Active 90093795 Problem Hepatitis C B19.20 Active 22004981 Problem HILARIO (obstructive sleep apnea) G47.33 Active 70244851 Problem Seborrheic keratoses L82.1 Active 451089168 Problem Other organ or system involvement in systemic lupus erythematosus M32.19 Active 98330876 Problem 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 E78.2 Active 456827956 Problem Lumbago with sciatica, right side M54.41 Active 161428478 Problem Other chronic pain G89.29 Active 50513055 Problem Other chronic pain G89.29 Active 49842032 Problem Acute right-sided low back pain with right-sided sciatica M54.41 Active 526637720 ALLERGIES No Information ENCOUNTERS Encounter Location Date Diagnosis [facility] [id number] [place] [address] 80006- 0721 July, Other organ or system involvement in systemic lupus erythematosus M32.19 [facility] [address] [id number] [address] July, [facility] [id number] [place] [address] 03078- 2999 Jun, Other organ or system involvement in systemic lupus erythematosus M32.19 ; BMI 40.0-44.9, adult Z68.41 ; Other chronic pain G89.29 and Controlled substance agreement signed Z79.899 [facility] [address] [address]- [address]596 May, Sciatica M54.30 [place] [address] 43705- 2546 Apr, Sciatica M54.30 [place] [address] 37422- 4277 Mar, Sciatica M54.30 [place] [address] 52611- 2323 Feb, Sciatica M54.30 [place] [address] 72705- 3767 15 Jan, 2017 Sciatica M54.30 [place] [address] 18204- 1414 14 Jan, 2017 Sciatica M54.30 [place] [address] 74449- 1475 19 Dec, 2016 Sciatica M54.30 [place] [address] 17636- 2367 18 Dec, 2016 Sciatica M54.30 [place] [id number] [place] [address] 88937- 8119 29 Nov, 2016 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 E78.2 ; Chronic seasonal allergic rhinitis due to other allergen J30.2 and Family history of early CAD Z82.49 [place] [id number] [place] [address] 11645- 3208 21 Nov, 2016 Sciatica M54.30 [place] [id number] [place] [address] 95906- 2544 18 Nov, 2016 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 E78.2 ; Chronic seasonal allergic rhinitis due to other allergen J30.2 ; Family history of early CAD Z82.49 ; Other chronic pain G89.29 and Pain in left shoulder M25.512 [place] [id number] [place] [address] 28589- 3664 Nov, Acute pain of left shoulder M25.512 [facility] [id number] [place] [address] 98938- 2373 Oct, Sciatica M54.30 [facility] [id number] [place] [address] 74517- 7285 Oct, [facility] [address] 47705- 6697 Sep, Sciatica M54.30 [facility] [id number] [place] [address] 01229- 9055 Sep, Acute pain of left shoulder M25.512 [facility] [id number] [place] [address] 13021- 4220 Sep, Acute pain of left shoulder M25.512 [place] [id number] [place] [address] 02591- 1085 Aug, Sciatica M54.30 [facility] [id number] [place] [address] 57399- 2847 Aug, Sciatica M54.30 ; Tobacco abuse Z72.0 and Tobacco abuse counseling Z71.6 [place] [id number] [place] [address] 74595- 5487 Aug, Acute pain of left shoulder M25.512 [facility] [id number] [place] [address] 58204 -9711 Aug, Contusion of right shoulder, initial encounter S40.011A ; Acute pain of left shoulder M25.512 and Shortness of breath R06.02 [facility] [id number] [place] [address] 12956- 1214 Aug, Lumbago with sciatica, right side M54.41 [facility] [id number] [place] [address] 71456- 1389 July, [place] [id number] [place] [address] 17102- 3639 July, Lumbago with sciatica, right side M54.41 [facility] [id number] [place] [address] 94168- 3883 Jun, Lumbago with sciatica, right side M54.41 [facility] [address] 47731- 7753 May, Lumbago with sciatica, right side M54.41 [facility] [id number] [place] [address] 44054 -3665 May, Herpes zoster without complication B02.9 [facility] [id number] [place] [address] 08429 -8242 May, Back pain M54.9 and Acute right-sided low back pain with right-sided sciatica M54.41 [facility] [id number] [place] [address] 91504- 9504 Apr, [facility] [address] 78351- 5135 Apr, Lumbago with sciatica, right side M54.41 and Other chronic pain G89.29 [facility] [id number] [place] [address] 51895- 9919 Apr, [facility] [id number] [place] [address] 43718- 4059 Mar, [facility] [id number] [place] [address] 46133- 2729 Mar, [facility] [address] 15721- 1390 Feb, [facility] [id number] [place] [address] 42172 -4220 Jan, Urinary frequency R35.0 [facility] [address] [place] [address]- 9586 Jan, [facility] [id number] [place] [address] 64797- 5051 Dec, [facility] [id number] [place] [address] 07812- 6622 Oct, [facility] [id number] [place] [address] 99573- 2050 Sep, [facility] [id number] [place] [address] 16222 -0433 Sep, Foreign body in left foot, initial encounter S90.852A [facility] [id number] [place] [address] 21865- 0535 Aug, [facility] [id number] [place] [address] 27015- 1433 July, Sciatica M54.30 [facility] [id number] [place] [address] 52503- 6179 Jun, [facility] [id number] [place] [address] 86393- 6553 May, Osteoarthritis M19.90 [facility] [id number] [place] [address] 46692- 7889 May, [facility] [id number] [place] [address] 48872- 3378 May, Pain in right hip M25.551 [facility] [id number] [place] [address] 05151 -3765 May, Tinea corporis B35.4 [facility] [id number] [place] [address] 39431- 1024 10 Apr, 2015 Pain in right hip M25.551 [facility] [id number] [place] [address] 39656- 8011 Mar, Pain in right hip M25.551 [facility] [address] [address]- 4722 Mar, [facility] [id number] [place] [address] 90291- 4926 Feb, Pain in right hip M25.551 [facility] [id number] [place] [address] 05990- 7094 Jan, Acute bronchitis, unspecified organism J20.9 and Cough R05 [facility] [id number] [place] [address] 75728- 5661 Jan, Pain in right hip M25.551 [facility] [id number] [place] [address] 00516- 5006 Dec, Pain in right hip M25.551 [facility] [id number] [place] [address] 25253- 0381 Nov, Acute bronchitis 466.0 [facility] [id number] [place] [address] 63907- 1761 Nov, [facility] [id number] [place] [address] 58510- 3540 Oct, [facility] [id number] [place] [address] 40016- 0112 Sep, [facility] [address] [address]- 7638 Aug, [facility] [id number] [place] [address] 21344- 3651 July, [facility] [id number] [place] [address] 94998- 3221 Jun, [facility] [id number] [place] [address] 20051- 4799 Jun, [facility] [address] [address]- 2248 May, [facility] [address] [place] [address]- 8553 May, [facility] [place] [facility] [address] [id number] [place] [address]- 3066 Apr, 2014 [facility] [place] [facility] [address] [id number] [place] [address] 2546 Apr, 2014 [facility] [place] [facility] [address] [id number] [place] [address]- 5296 Apr, 2014 [facility] [place] [facility] [address] [id number] [place] [address] 2547 Apr, 2014 [facility] [place] [facility] [address] [id number] [place] [address]- 8346 Apr, 2014 [facility] [place] [facility] [address] [facility] [id number] [place] [address]- 9877 Apr, 2014 [facility] [place] [facility] [address] [facility] [id number] [place] [address]- 0878 Mar, [facility] [place] [facility] [address] [id number] [place] [address]- 7505 Mar, [facility] [place] [facility] [address] [facility] [id number] [place] [address]- 7410 Feb, [facility] [place] [facility] [address] [facility] [id number] [place] 4616 15 Feb, 2014 [facility] [place] [facility] [address] [facility] [id number] [place] [address]- 9719 15 Feb, 2014 [facility] [place] [facility] [address] [id number] [place] [address] 2546 Dec, [facility] [place] [facility] [address] [id number] [place] [address]- 2386 Dec, [facility] [place] [facility] [address] [facility] [id number] [place] [address]- 2546 17 Nov, 2013 [facility] [place] [facility] [address] [facility] [id number] [place] [address]- 1233 Nov, [facility] [place] [facility] [address] [id number] [place] [address]- 3106 Nov, [facility] [place] [facility] [address] [id number] [place] [address]- 3808 Nov, [facility] [place] [facility] [address] [id number] [place] [address]- 9950 Sep, [facility] [place] [facility] [address] [id number] [place] [address]- 7320 Sep, [facility] [place] [facility] [address] [id number] [place] [address]- 6325 Sep, [facility] [place] [facility] [address] [id number] [place] [address]- 7960 Sep, [facility] [place] [facility] [address] [id number] [place] [address]- 2004 Aug, [facility] [place] [facility] [address] [id number] [place] [address]- 9507 Aug, [facility] [place] [facility] [address] [id number] [place] [address]- 5964 Aug, [facility] [place] [facility] [address] [id number] [place] [address]- 3329 Aug, [facility] [place] [facility] [address] [id number] [place] [address]- 0925 July, [facility] [place] [facility] [address] [id number] [place] [address]- 2039 July, [facility] [place] [facility] [address] [id number] [place] [address]- 2103 Jun, [facility] [place] [facility] [address] [id number] [place] [address]- 7947 Jun, [facility] [place] [facility] [address] [id number] [place] [address]- 1853 Jun, [facility] [place] [facility] [address] [id number] [place] [address]- 7456 Jun, [facility] [place] [facility] [address] [id number] [place] [address]- 9277 Jun, [facility] [place] [facility] [address] [id number] [place] [address]- 9492 Jun, [facility] [place] [facility] [address] [id number] [place] [address]- 0975 Jun, [facility] [place] [facility] [address] [id number] [place] [address]- 4792 Jun, [facility] [place] [facility] [address] [id number] [place] [address]- 2073 May, [facility] [place] [facility] [address] [id number] [place] [address]- 0781 May, [facility] [place] [facility] [address] [id number] [place] [address]- 5088 May, [facility] [place] [facility] [address] [id number] [place] [address]- 7650 May, [facility] [place] [facility] [address] [id number] [place] [address]- 6302 May, [facility] [place] [facility] [address] [facility] [id number] [place] [address]- 8853 May, [facility] [place] [facility] [address] [id number] [place] [address]- 4905 Apr, [facility] [place] [facility] [address] [id number] [place] [address]- 2396 Apr, [facility] [place] [facility] [address] [id number] [place] [address]- 6820 Apr, [facility] [place] [facility] [address] [id number] [place] [address]- 9830 Apr, [facility] [place] [facility] [address] [id number] [place] [address]- 2305 Mar, [facility] [address] [id number] [place] [address]- 4453 Mar, [facility] [place] [facility] [address] [id number] [place] [address]- 5701 Mar, [facility] [place] [facility] [address] [id number] [place] [address]- 0310 Mar, [facility] [place] [facility] [address] [id number] [place] [address]- 6435 Mar, [facility] [address] [id number] [place] [address]- 7748 Mar, [facility] [place] [facility] [address] [id number] [place] [address]- 8644 Feb, [facility] [address] [id number] [place] [address]- 7152 Feb, [facility] [address] [id number] [place] [address]- 6943 Feb, [facility] [place] [facility] [address] [id number] [place] [address]- 9588 Feb, [facility] [place] [facility] [address] [id number], [place] [address]- 5506 Feb, [facility] [place] [facility] [address] [id number] [address]- 9003 Feb, [facility] [place] [facility] [address] [id number], [place] [address]- 2816 Feb, [facility] [place] [facility] [address] [id number], [place] [address]- 7621 Feb, [facility] [place] [facility] [address] [id number], [place] [address]- 7108 Feb, [facility] [place] [facility] [address] [id number], [place] [address]- 0620 Feb, [facility] [place] [facility] [address] [id number], [place] [address]- 9870 Feb, [facility] [address] [id number] [place] [address]- 6655 Feb, [facility] [place] [facility] [address] [id number] [place] [address]- 7069 Jan, [facility] [place] [facility] [address] [facility] [id number] [place] [address]- 1428 Jan, [facility] [place] [facility] [address] [id number] [place] [address]- 5209 Jan, [facility] [place] [facility] [address] [id number] [place] [address]- 7722 Jan, [facility] [place] [facility] [address] [id number] [place] [address]- 7575 Jan, [facility] [address] [facility] [id number], [place] [address]- 9096 Jan, [facility] [place] [facility] [address] [id number] [place] [address]- 5891 Jan, [facility] [place] [facility] [address] [facility] [id number], [place] [address]- 5368 Jan, [facility] [place] [facility] [address] [facility] [id number], [place] [address]- 6439 Jan, [facility] [place] [facility] [address] [id number], [place] [address]- 6906 Jan, [facility] [place] [facility] [address] [id number], [place] [address]- 6984 Dec, [facility] [place] [facility] [address] [id number], [place] [address]- 8396 Dec, [facility] [place] [facility] [address] [facility] [id number], [place] [address]- 4348 Nov, [facility] [place] [facility] [address] [facility] [id number], [place] [address]- 2200 Nov, [facility] [place] [facility] [address] [id number] [place] [address]- 2381 Nov, [facility] [place] [facility] [address] [id number] [place] [address]- 3353 Nov, [facility] [place] [facility] [address] [id number] [place] [address]- 2246 Nov, [facility] [place] [facility] [address] [id number] [place] [address]- 4617 Oct, [facility] [place] [facility] [address] [id number] [place] [address]- 5102 Oct, [facility] [place] [facility] [address] [id number] [place] [address]- 4054 Oct, [facility] [place] [facility] [address] [id number] [place] [address]- 7654 Oct, [facility] [place] [facility] [address] [id number] [place] [address]- 3102 Oct, [facility] [place] [facility] [address] [id number] [place] [address]- 4610 Sep, [facility] [place] [facility] [address] [id number] [place] [address]- 7523 Sep, [facility] [place] [facility] [address] [id number] [place] [address]- 3696 Sep, [facility] [place] [facility] [address] [id number] [place] [address]- 6504 Sep, [facility] [place] [facility] [address] [id number] [place] [address]- 6180 Sep, [facility] [place] [facility] [address] [id number] [place] [address]- 5122 Sep, [facility] [place] [facility] [address] [id number] [place] [address]- 6 Aug, [facility] [place] [facility] [address] [id number] [place] [address]- 5682 Aug, [facility] [address] [id number] [place] [address]- 2613 July, [facility] [place] [facility] [address] [id number] [place] [address]- 3616 July, [facility] [place] [facility] [address] [id number] [place] [address] July, [facility] [place] [facility] [address] [id number] [place] [address] Jun, [facility] [place] [facility] [address] [id number] [place] [address] Jun, [facility] [place] [facility] [address] [id number] [place] [address] Jun, [facility] [place] [facility] [address] [id number] [place] [address] Jun, [facility] [place] [facility] [address] [id number] [place] [address] May, [facility] [place] [facility] [address] [id number] [place] [address] May, [facility] [place] [facility] [address] [id number] [place] [address] Apr, [facility] [place] [facility] [address] [id number] [place] [address] Apr, [facility] [place] [facility] [address] [id number] [place] [address] Apr, [facility] [place] [facility] [address] [id number] [place] [address] Apr, [facility] [place] [facility] [address] [id number] [place] [address] Apr, [facility] [place] [facility] [address] [id number] [place] [address] Apr, [facility] [place] [facility] [address] [id number] [place] [id number] Apr, [facility] [address] [id number] [place] [address] Apr, [facility] [place] [facility] [address] [id number] [place] [address] Mar, [facility] [address] [id number] [place] [address] Mar, [facility] [address] [id number] [place] [address] Mar, [facility] [address] [id number] [place] [address] Mar, [facility] [address] [id number] [place] [address] Jan, [facility] [address] [id number] [place] [address] Jan, [facility] [address] [id number] [place] [address] Jan, [facility] [address] [id number] [place] [address] Jan, [facility] [address] [id number] [place] [address] Jan, [facility] [address] [id number] [place] [address] Dec, [facility] [address] [id number] [place] [address] Dec, [facility] [place] [facility] [address] [id number] [place] [address] Dec, [facility] [place] [facility] [address] [id number] [place] [address] Dec, [facility] [place] [facility] [address] [id number] [place] [address] Nov, [facility] [place] [facility] [address] [id number] [place] [address] Oct, [facility] [place] [facility] [address] [id number] [place] [address] Oct, [facility] [place] [facility] [address] [id number] [place] [address] Oct, [facility] [place] [facility] [address] [id number] [place] [address] Oct, [facility] [place] [facility] [address] [id number] [place] [address] Oct, [facility] [place] [facility] [address] [id number] [place] [address] Sep, [facility] [place] [facility] [address] [id number] [place] [address] Sep, [facility] [place] [facility] [address] [id number] [place] [address] Aug, [facility] [place] [facility] [address] [id number] [place] [address] Aug, [facility] [place] [facility] [address] [id number] [place] [address] Aug, [facility] [place] [facility] [address] [id number] [place] [address] Aug, [facility] [place] [facility] [address] [id number] [place] [address] July, [facility] [place] [facility] [address] [id number] [place] [address] Jun, [facility] [place] [facility] [address] [id number] [place] [address] May, [facility] [place] [facility] [address] [id number] [place] [address] May, [facility] [place] [facility] [address] [id number] [place] [address] 12 May, 2011 [facility] [place] [facility] [address] [id number] [place] [address] 30 Mar, 2011 [facility] [place] [facility] [address] [id number] [place] [address] Feb, [facility] [place] [facility] [address] [id number] [place] [address] Feb, [facility] [place] [facility] [address] [id number] [place] [address] Jan, [facility] [place] [facility] [address] [id number] [place] [id number] Jan, [facility] [place] [facility] [address] [id number] [place] [address] Jan, [facility] [place] [facility] [address] [id number] [place] [address] Jan, [facility] [place] [facility] [address] [id number] [place] [address] Jan, [facility] [place] [facility] [address] [id number] [place] [address] Dec, [facility] [place] [facility] [address] [id number] [place] [address] Dec, [facility] [place] [facility] [address] [id number] [place] [address] Dec, [facility] [place] [facility] [address] [id number] [place] [address] May, [facility] [place] [facility] [address] [id number] [place] [address] 15 May, 2009 [facility] [place] [facility] [address] [id number] [place] [address] 17 Apr, 2009 [facility] [place] [facility] [address] [id number] [address] Jan, [facility] [place] [facility] [address] [facility] [id number] [place] [address] 11 Apr, 2008 IMMUNIZATIONS No Known Immunizations SOCIAL HISTORY Never Assessed REASON FOR VISIT Controlled Med Refill 01/09/17 PLAN OF CARE VITAL SIGNS MEDICATIONS Medication Instructions Dosage Frequency Start Date End Date Duration Status Mcintire 5-325 MG Orally every 6 hrs PRN 1 tablet Dec, 28 days Active RESULTS No Results PROCEDURES [...]
--- OUTSIDE RECORDS SUMMARY | 2017-12-19 08:13 | XMS REPORT ---
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 Active 956924517 Problem Sciatica M54.30 Active 92853857 Problem Hepatitis C B19.20 Active 00222606 Problem HILARIO (obstructive sleep apnea) G47.33 Active 58706544 Problem Seborrheic keratoses L82.1 Active 314485506 Problem Other organ or system involvement in systemic lupus erythematosus M32.19 Active 54790127 Problem 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 E78.2 Active 528155385 Problem Lumbago with sciatica, right side M54.41 Active 481933563 Problem Other chronic pain G89.29 Active 88738971 Problem Other chronic pain G89.29 Active 87039576 Problem Acute right-sided low back pain with right-sided sciatica M54.41 Active 526525417 ALLERGIES No Information ENCOUNTERS Encounter Location Date Diagnosis [facility] [place] [id number] [place] [address] 35228- 5978 July, Other organ or system involvement in systemic lupus erythematosus M32.19 [facility] [place] [address] [id number] [address] July, [facility] [place] [id number] [place] [address] 65468- 0946 Jun, Other organ or system involvement in systemic lupus erythematosus M32.19 ; BMI 40.0-44.9, adult Z68.41 ; Other chronic pain G89.29 and Controlled substance agreement signed Z79.899 [facility] [place] [address] [address]- [address]377 May, Sciatica M54.30 [place] [address] 609[address]- 2546 Apr, Sciatica M54.30 [place] [address] 56330- 8637 Mar, Sciatica M54.30 [place] [address] 06795- 6642 Feb, Sciatica M54.30 [place] [address] 24935- 6715 15 Jan, 2017 Sciatica M54.30 [place] [address] 78516- 8124 14 Jan, 2017 Sciatica M54.30 [place] [address] 62740- 5152 19 Dec, 2016 Sciatica M54.30 [place] [address] 76637- 2510 18 Dec, 2016 Sciatica M54.30 [place] [id number] [place] [address] 80000- 9247 29 Nov, 2016 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 E78.2 ; Chronic seasonal allergic rhinitis due to other allergen J30.2 and Family history of early CAD Z82.49 [place] [id number] [place] [address] 17265- 2487 21 Nov, 2016 Sciatica M54.30 [place] [id number] [place] [address] 39738- 2544 18 Nov, 2016 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 E78.2 ; Chronic seasonal allergic rhinitis due to other allergen J30.2 ; Family history of early CAD Z82.49 ; Other chronic pain G89.29 and Pain in left shoulder M25.512 [place] [id number] [place] [address] 20184- 6924 Nov, Acute pain of left shoulder M25.512 [facility] [place] [id number] [place] [address] 17759- 5808 Oct, Sciatica M54.30 [facility] [place] [id number] [place] [address] 81900- 4421 Oct, [facility] [place] [address] 35058- 4704 Sep, Sciatica M54.30 [facility] [place] [id number] [place] [address] 71666- 3119 Sep, Acute pain of left shoulder M25.512 [facility] [place] [id number] [place] [address] 51389- 1008 Sep, Acute pain of left shoulder M25.512 [place] [id number] [place] [address] 83202- 7219 Aug, Sciatica M54.30 [facility] [place] [id number] [place] [address] 36635- 9428 Aug, Sciatica M54.30 ; Tobacco abuse Z72.0 and Tobacco abuse counseling Z71.6 [place] [id number] [place] [address] 88023- 7701 Aug, Acute pain of left shoulder M25.512 [facility] [id number] [place] [address] 00708 -4140 Aug, Contusion of right shoulder, initial encounter S40.011A ; Acute pain of left shoulder M25.512 and Shortness of breath R06.02 [facility] [place] [id number] [place] [address] 08687- 7537 Aug, Lumbago with sciatica, right side M54.41 [facility] [place] [id number] [place] [address] 36472- 5259 July, [place] [id number] [place] [address] 65712- 8654 July, Lumbago with sciatica, right side M54.41 [facility] [place] [id number] [place] [address] 99868- 3953 Jun, Lumbago with sciatica, right side M54.41 [facility] [place] [address] 44438- 2432 May, Lumbago with sciatica, right side M54.41 [facility] [id number] [place] [address] 96829 -0577 May, Herpes zoster without complication B02.9 [facility] [id number] [place] [address] 23243 -6306 May, Back pain M54.9 and Acute right-sided low back pain with right-sided sciatica M54.41 [facility] [place] [id number] [place] [address] 05619- 4964 Apr, [facility] [place] [address] 01381- 4224 Apr, Lumbago with sciatica, right side M54.41 and Other chronic pain G89.29 [facility] [place] [id number] [place] [address] 13456- 4554 Apr, [facility] [place] [id number] [place] [address] 97269- 8092 Mar, [facility] [place] [id number] [place] [address] 78785- 5085 Mar, [facility] [place] [address] 30295- 3417 Feb, [facility] [id number] [place] [address] 02681 -9627 Jan, Urinary frequency R35.0 [facility] [place] [address] [place] [address]- 7617 Jan, [facility] [place] [id number] [place] [address] 40443- 0890 Dec, [facility] [place] [id number] [place] [address] 42396- 5186 Oct, [facility] [place] [id number] [place] [address] 91803- 9934 Sep, [facility] [id number] [place] [address] 12845 -0194 Sep, Foreign body in left foot, initial encounter S90.852A [facility] [place] [id number] [place] [address] 70876- 6994 Aug, [facility] [place] [id number] [place] [address] 56512- 9207 July, Sciatica M54.30 [facility] [place] [id number] [place] [address] 05838- 5658 Jun, [facility] [place] [id number] [place] [address] 28036- 9522 May, Osteoarthritis M19.90 [facility] [place] [id number] [place] [address] 03944- 4467 May, [facility] [place] [id number] [place] [address] 77092- 2863 May, Pain in right hip M25.551 [facility] [id number] [place] [address] 27339 -5789 May, Tinea corporis B35.4 [facility] [place] [id number] [place] [address] 97737- 4419 10 Apr, 2015 Pain in right hip M25.551 [facility] [place] [id number] [place] [address] 85797- 2301 Mar, Pain in right hip M25.551 [facility] [place] [address] [address]- 9472 Mar, [facility] [place] [id number] [place] [address] 28266- 9921 Feb, Pain in right hip M25.551 [facility] [place] [id number] [place] [address] 34162- 5982 Jan, Acute bronchitis, unspecified organism J20.9 and Cough R05 [facility] [place] [id number] [place] [address] 31306- 2817 Jan, Pain in right hip M25.551 [facility] [place] [id number] [place] [address] 60952- 3881 Dec, Pain in right hip M25.551 [facility] [place] [id number] [place] [address] 06300- 4482 Nov, Acute bronchitis 466.0 [facility] [place] [id number] [place] [address] 83463- 9163 Nov, [facility] [place] [id number] [place] [address] 90195- 4185 Oct, [facility] [place] [id number] [place] [address] 01695- 7382 Sep, [facility] [place] [address] [address]- 1081 Aug, [facility] [place] [address] [place] [address] 47671- 4032 July, [facility] [place] [id number] [place] [address] 19953- 9127 Jun, [facility] [place] [id number] [place] [address] 22238- 1803 Jun, [facility] [place] [address] [address]- 7636 May, [facility] [place] [address] [address] [place] [address]- 6046 May, [facility] [place] [facility] [address] [id number] [place] [address]- 6916 Apr, 2014 [facility] [place] [facility] [address] [id number] [place] [address] 2546 Apr, 2014 [facility] [place] [facility] [address] [id number] [place] [address]- 1026 Apr, 2014 [facility] [place] [facility] [address] [id number] [place] [address] 254 Apr, 2014 [facility] [place] [facility] [address] [id number] [place] [address]- 4036 Apr, 2014 [facility] [place] [facility] [address] [facility] [id number] [place] [address]- 0237 Apr, 2014 [facility] [place] [facility] [address] [facility] [id number] [place] [address]- 1435 Mar, [facility] [place] [facility] [address] [id number] [place] [address]- 7009 Mar, [facility] [place] [facility] [address] [facility] [id number] [place] [address]- 5443 Feb, [facility] [place] [facility] [address] [facility] [id number] [place] 0936 15 Feb, 2014 [facility] [place] [facility] [address] [facility] [id number] [place] [address]- 6953 15 Feb, 2014 [facility] [place] [facility] [address] [id number] [place] [address] 2546 Dec, [facility] [place] [facility] [address] [id number] [place] [address]- 8866 Dec, [facility] [place] [facility] [address] [facility] [id number] [place] [address]- 2546 17 Nov, 2013 [facility] [place] [facility] [address] [facility] [id number] [place] [address]- 1600 Nov, [facility] [place] [facility] [address] [id number] [place] [address]- 3627 Nov, [facility] [place] [facility] [address] [id number] [place] [address]- 8398 Nov, [facility] [place] [facility] [address] [id number] [place] [address]- 3827 Sep, [facility] [place] [facility] [address] [id number] [place] [address]- 0431 Sep, [facility] [place] [facility] [address] [id number] [place] [address]- 1699 Sep, [facility] [place] [facility] [address] [id number] [place] [address]- 4043 Sep, [facility] [place] [facility] [address] [id number] [place] [address]- 7395 Aug, [facility] [place] [facility] [address] [id number] [place] [address]- 4106 Aug, [facility] [place] [facility] [address] [id number] [place] [address]- 2749 Aug, [facility] [place] [facility] [address] [id number] [place] [address]- 6484 Aug, [facility] [place] [facility] [address] [id number] [place] [address]- 4559 July, [facility] [place] [facility] [address] [id number] [place] [address]- 5918 July, [facility] [place] [facility] [address] [id number] [place] [address]- 3868 Jun, [facility] [place] [facility] [address] [id number] [place] [address]- 5371 Jun, [facility] [place] [facility] [address] [id number] [place] [address]- 1990 Jun, [facility] [place] [facility] [address] [id number] [place] [address]- 7165 Jun, [facility] [place] [facility] [address] [id number] [place] [address]- 9558 Jun, [facility] [place] [facility] [address] [id number] [place] [address]- 8510 Jun, [facility] [place] [facility] [address] [id number] [place] [address]- 1746 Jun, [facility] [place] [facility] [address] [id number] [place] [address]- 2066 Jun, [facility] [place] [facility] [address] [id number] [place] [address]- 3144 May, [facility] [place] [facility] [address] [id number] [place] [address]- 0171 May, [facility] [place] [facility] [address] [id number] [place] [address]- 9880 May, [facility] [place] [facility] [address] [id number] [place] [address]- 3654 May, [facility] [place] [facility] [address] [id number] [place] [address]- 4127 May, [facility] [place] [facility] [address] [facility] [id number] [place] [address]- 9249 May, [facility] [place] [facility] [address] [id number] [place] [address]- 0301 Apr, [facility] [place] [facility] [address] [id number] [place] [address]- 8088 Apr, [facility] [place] [facility] [address] [id number] [place] [address]- 3022 Apr, [facility] [place] [facility] [address] [id number] [place] [address]- 0837 Apr, [facility] [place] [facility] [address] [id number] [place] [address]- 5667 Mar, [facility] [address] [id number] [place] [address]- 1842 Mar, [facility] [place] [facility] [address] [id number] [place] [address]- 6363 Mar, [facility] [place] [facility] [address] [id number] [place] [address]- 6166 Mar, [facility] [place] [facility] [address] [id number] [place] [address]- 1261 Mar, [facility] [address] [id number] [place] [address]- 6633 Mar, [facility] [place] [facility] [address] [id number] [place] [address]- 9784 Feb, [facility] [address] [id number] [place] [address]- 2880 Feb, [facility] [address] [id number] [place] [address]- 8467 Feb, [facility] [place] [facility] [address] [id number] [place] [address]- 4473 Feb, [facility] [place] [facility] [address] [id number] [address]- 1192 Feb, [facility] [place] [facility] [address] [id number] [address]- 8005 Feb, [facility] [place] [facility] [address] [id number] [place] [address]- 3273 Feb, [facility] [place] [facility] [address] [id number] [address]- 5049 Feb, [facility] [place] [facility] [address] [id number] [address]- 3076 Feb, [facility] [place] [facility] [address] [id number] [place] [address]- 1663 Feb, [facility] [place] [facility] [address] [id number] [place] [address]- 2089 Feb, [facility] [address] [id number] [place] [address]- 8886 Feb, [facility] [place] [facility] [address] [id number] [place] [address]- 6524 Jan, [facility] [place] [facility] [address] [facility] [id number] [place] [address]- 2805 Jan, [facility] [place] [facility] [address] [id number] [place] [address]- 5424 Jan, [facility] [place] [facility] [address] [id number] [place] [address]- 1584 Jan, [facility] [place] [facility] [address] [id number] [place] [address]- 5299 Jan, [facility] [address] [facility] [id number] [place] [address]- 3878 Jan, [facility] [place] [facility] [address] [id number] [place] [address]- 9433 Jan, [facility] [place] [facility] [address] [facility] [id number] [place] [address]- 0988 Jan, [facility] [place] [facility] [address] [facility] [id number] [place] [address]- 1145 Jan, [facility] [place] [facility] [address] [id number] [place] [address]- 6002 Jan, [facility] [place] [facility] [address] [id number] [place] [address]- 2996 Dec, [facility] [place] [facility] [address] [id number] [place] [address]- 0872 Dec, [facility] [place] [facility] [address] [facility] [id number] [place] [address]- 3211 Nov, [facility] [place] [facility] [address] [facility] [id number] [place] [address]- 5596 Nov, [facility] [place] [facility] [address] [id number] [place] [address]- 3118 Nov, [facility] [place] [facility] [address] [id number] [place] [address]- 6508 Nov, [facility] [place] [facility] [address] [id number] [place] [address]- 2606 Nov, [facility] [place] [facility] [address] [id number] [place] [address]- 8101 Oct, [facility] [place] [facility] [address] [id number] [place] [address]- 7913 Oct, [facility] [place] [facility] [address] [id number] [place] [address]- 6280 Oct, [facility] [place] [facility] [address] [id number] [place] [address] Oct, [facility] [place] [facility] [address] [id number] [place] [address] Oct, [facility] [place] [facility] [address] [id number] [place] [address] Sep, [facility] [place] [facility] [address] [id number] [place] [address] Sep, [facility] [place] [facility] [address] [id number] [place] [address] Sep, [facility] [place] [facility] [address] [id number] [place] [address] Sep, [facility] [place] [facility] [address] [id number] [place] [address] Sep, [facility] [place] [facility] [address] [id number] [place] [address] Sep, [facility] [place] [facility] [address] [id number] [place] [address] Aug, [facility] [place] [facility] [address] [id number] [place] [address] Aug, [facility] [address] [id number] [place] [address] July, [facility] [place] [facility] [address] [id number] [place] [address] July, [facility] [place] [facility] [address] [id number] [place] [address] July, [facility] [place] [facility] [address] [id number] [place] [address] Jun, [facility] [place] [facility] [address] [id number] [place] [address] 47[address] Jun, [facility] [place] [facility] [address] [id number] [place] [address]65 Jun, [facility] [place] [facility] [address] [id number] [place] [address]- [address] Jun, [facility] [place] [facility] [address] [id number] [place] [address] May, [facility] [place] [facility] [address] [id number] [place] [address]- [address] May, [facility] [place] [facility] [address] [id number] [place] [address] Apr, [facility] [place] [facility] [address] [id number] [place] [address] Apr, [facility] [place] [facility] [address] [id number] [place] [address]- [address] Apr, [facility] [place] [facility] [address] [id number] [place] [address]- [address] Apr, [facility] [place] [facility] [address] [id number] [place] [address] Apr, [facility] [place] [facility] [address] [id number] [place] [address] Apr, [facility] [place] [facility] [address] [id number] [place] [id number] Apr, [facility] [address] [id number] [place] [address] Apr, [facility] [place] [facility] [address] [id number] [place] [address] Mar, [facility] [address] [id number] [place] [address] Mar, [facility] [address] [id number] [place] [address] Mar, [facility] [address] [id number] [place] [address] Mar, [facility] [address] [id number] [place] [address] Jan, [facility] [address] [id number] [place] [address] Jan, [facility] [address] [id number] [place] [address] 1988 Jan, [facility] [address] [id number] [place] [address] Jan, [facility] [address] [id number] [place] [address] Jan, [facility] [address] [id number] [place] [address] Dec, [facility] [address] [id number] [place] [address] 47[address] Dec, [facility] [place] [facility] [address] [id number] [place] [address] Dec, [facility] [place] [facility] [address] [id number] [place] [address] Dec, [facility] [place] [facility] [address] [id number] [place] [address] Nov, [facility] [place] [facility] [address] [id number] [place] [address] Oct, [facility] [place] [facility] [address] [id number] [place] [address] Oct, [facility] [place] [facility] [address] [id number] [place] [address] Oct, [facility] [place] [facility] [address] [id number] [place] [address] Oct, [facility] [place] [facility] [address] [id number] [place] [address] Oct, [facility] [place] [facility] [address] [id number] [place] [address]- [address] Sep, [facility] [place] [facility] [address] [id number] [place] [address] Sep, [facility] [place] [facility] [address] [id number] [place] [address] Aug, [facility] [place] [facility] [address] [id number] [place] [address] Aug, [facility] [place] [facility] [address] [id number] [place] [address]- [address] Aug, [facility] [place] [facility] [address] [id number] [place] [address] Aug, [facility] [place] [facility] [address] [id number] [place] [address] July, [facility] [place] [facility] [address] [id number] [place] [address] Jun, [facility] [place] [facility] [address] [id number] [place] [address] May, [facility] [place] [facility] [address] [id number] [place] [address] May, [facility] [place] [facility] [address] [id number] [place] [address] 12 May, 2011 [facility] [place] [facility] [address] [id number] [place] [address] 30 Mar, 2011 [facility] [place] [facility] [address] [id number] [place] [address] Feb, [facility] [place] [facility] [address] [id number] [place] [address] Feb, [facility] [place] [facility] [address] [id number] [place] [address] Jan, [facility] [place] [facility] [address] [id number] [place] [address] Jan, [facility] [place] [facility] [address] [id number] [place] [address] Jan, [facility] [place] [facility] [address] [id number] [place] [address] Jan, [facility] [place] [facility] [address] [id number] [place] [address] Jan, [facility] [place] [facility] [address] [id number] [place] [address] Dec, [facility] [place] [facility] [address] [id number] [place] [address] Dec, [facility] [place] [facility] [address] [id number] [place] [address] Dec, [facility] [place] [facility] [address] [id number] [place] [address] May, [facility] [place] [facility] [address] [id number] [place] [address] 15 May, 2009 [facility] [place] [facility] [address] [id number] [place] [address] 17 Apr, 2009 [facility] [place] [facility] [address] [id number] [place] [address] Jan, [facility] [place] [facility] [address] [facility] [id number] [place] [address] 11 Apr, 2008 IMMUNIZATIONS No Known Immunizations SOCIAL HISTORY Never Assessed REASON FOR VISIT Controlled Med Refill-2 PLAN OF CARE VITAL SIGNS MEDICATIONS Medication Instructions Dosage Frequency Start Date End Date Duration Status [place] 5-325 MG Orally every 6 hrs PRN [...]
--- OUTSIDE RECORDS SUMMARY | 2017-12-19 08:14 | XMS REPORT ---
Author Author CHRISTA GLORIA Organization [facility] Address [address] [place] [address] Care Team Providers Care Family Service Counselor Name Role Phone CHRISTA GLORIA Unavailable PROBLEMS Type Condition ICD9-CM Code QGI39-UL Code Onset Dates Condition Status SNOMED Code Problem Other chronic pain G89.29 Active 82778575 Problem Acute right-sided low back pain with right-sided sciatica M54.41 Active 296571852 Problem Lumbago with sciatica, right side M54.41 Active 120544897 Problem Asymptomatic menopausal state Z78.0 Active 17609912 Problem Episode of recurrent major depressive disorder, unspecified depression episode severity F33.9 Active 479397646 Problem 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 E78.2 Active 196915502 Problem Other chronic pain G89.29 Active 19420379 Problem Anxiety F41.9 Active 76765804 Problem Other organ or system involvement in systemic lupus erythematosus M32.19 Active 77764867 Problem Sciatica M54.30 Active 84924532 Problem Hepatitis C B19.20 Active 47954800 Problem HILARIO (obstructive sleep apnea) G47.33 Active 60377766 Problem 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 Active 815179129 Problem Seborrheic keratoses L82.1 Active 954374057 Problem Urinary frequency R35.0 Active 723341746 ALLERGIES No Information ENCOUNTERS Encounter Location Date Diagnosis [facility] [address] [facility] [id number] [address] Aug, [facility] [id number] [place] [address]4822- 1698 Aug, Other organ or system involvement in systemic lupus erythematosus M32.19 [facility] [address] [id number] [address] July, Medicare annual wellness visit, initial Z00.00 ; Anxiety F41.9 ; HILARIO (obstructive sleep apnea) G47.33 ; Hepatitis C B19.20 ; Other chronic pain G89.29 ; Asymptomatic menopausal state Z78.0 and Episode of recurrent major depressive disorder, unspecified depression episode severity F33.9 [facility] [id number] [place] [address] 49499- 4135 July, Anxiety F41.9 [place] [address] [address]- [address] July, Other organ or system involvement in systemic lupus erythematosus M32.19 [place] [id number] [place] [address] 45218- 0199 July, [place] [id number] [place] [address] 52804- 2155 Jun, Other organ or system involvement in systemic lupus erythematosus M32.19 ; BMI 40.0-44.9, adult Z68.41 ; Other chronic pain G89.29 and Controlled substance agreement signed Z79.899 [place] [id number] [place] [address] 14734- 4739 May, Sciatica M54.30 [place] [address] 48106- 4078 Apr, Sciatica M54.30 [place] [address] [id number] [place] [address] 65345- 9010 Mar, Sciatica M54.30 [place] [id number] [place] [address] 88919- 8456 Feb, Sciatica M54.30 [place] [id number] [place] [address] 70643- 8834 15 Jan, 2017 Sciatica M54.30 [place] [address] [id number] [place] [address] 71421- 2502 14 Jan, 2017 Sciatica M54.30 [place] [address] 28419- 3190 Dec, Sciatica M54.30 [facility] [address] 69049- 5293 Dec, Sciatica M54.30 [facility] [address] 77546- 4857 29 Nov, 2016 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 E78.2 ; Chronic seasonal allergic rhinitis due to other allergen J30.2 and Family history of early CAD Z82.49 [place] [address] 04004- 7513 21 Nov, 2016 Sciatica M54.30 [place] [address] 47877- 0480 18 Nov, 2016 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 E78.2 ; Chronic seasonal allergic rhinitis due to other allergen J30.2 ; Family history of early CAD Z82.49 ; Other chronic pain G89.29 and Pain in left shoulder M25.512 [place] [address] 93189- 7406 11 Nov, 2016 Acute pain of left shoulder M25.512 [place] [address] 72748- 9700 Oct, Sciatica M54.30 [place] [address] 14019- 6755 Oct, [place] [address] 96632- 6922 Sep, Sciatica M54.30 [place] [address] 66829- 1973 Sep, Acute pain of left shoulder M25.512 [place] [address] 75325- 4265 Sep, Acute pain of left shoulder M25.512 [place] [address] 41400- 3015 Aug, Sciatica M54.30 [place] [address] 14894- 5836 Aug, Sciatica M54.30 ; Tobacco abuse Z72.0 and Tobacco abuse counseling Z71.6 [place] [address] 66270- 5426 Aug, Acute pain of left shoulder M25.512 [facility] [address] [address]31 Aug, Contusion of right shoulder, initial encounter S40.011A ; Acute pain of left shoulder M25.512 and Shortness of breath R06.02 [place] [address] 50460- 4583 Aug, Lumbago with sciatica, right side M54.41 [place] [address] 93613- 2116 July, [place] [address] 92703- 6759 July, Lumbago with sciatica, right side M54.41 [place] [address] 77357- 7518 Jun, Lumbago with sciatica, right side M54.41 [place] [address] 87076- 5687 May, Lumbago with sciatica, right side M54.41 [facility] [place] [address] 75605 -4055 May, Herpes zoster without complication B02.9 [facility] [address] 8[address]26 -2494 May, Back pain M54.9 and Acute right-sided low back pain with right-sided sciatica M54.41 [place] [address] 85784- 1651 Apr, [facility] [id number] [place] [address] 48839- 7239 Apr, Lumbago with sciatica, right side M54.41 and Other chronic pain G89.29 [facility] [id number] [place] [address] 75203- 5034 Apr, [facility] [address] 76902- 1153 Mar, [facility] [id number] [place] [address] 45021- 8649 Mar, [facility] [address] 09545- 0321 Feb, [facility] [id number] [place] [address] 53161 -6059 Jan, Urinary frequency R35.0 [facility] [address] 99649- 7759 Jan, [facility] [id number] [place] [address] 54743- 1281 Dec, [facility] [address] 09000- 1982 Oct, [facility] [id number] [place] [address] 43188- 3472 Sep, [facility] [address] 84365 -7088 Sep, Foreign body in left foot, initial encounter S90.852A [facility] [address] 77906- 9531 Aug, [facility] [address] 83821- 5341 July, Sciatica M54.30 [facility] [address] 65821- 4964 Jun, [facility] [id number] [place] [address] 75671- 2931 May, Osteoarthritis M19.90 [facility] [id number] [place] [address] 77685- 9297 May, [facility] [id number] [place] [address] 68516- 7952 May, Pain in right hip M25.551 [facility] [id number] [place] [address] 76663 -0946 May, Tinea corporis B35.4 [facility] [address] 13648- 2182 Apr, Pain in right hip M25.551 [facility] [id number] [place] [address] 12296- 2690 Mar, Pain in right hip M25.551 [facility] [id number] [place] [address] 85607- 6636 Mar, [facility] [id number] [place] [address] 92586- 7388 Feb, Pain in right hip M25.551 [facility] [id number] [place] [address] 51686- 5062 Jan, Acute bronchitis, unspecified organism J20.9 and Cough R05 [facility] [id number] [place] [address] 74285- 8436 Jan, Pain in right hip M25.551 [facility] [id number] [place] [address] 22967- 7766 Dec, Pain in right hip M25.551 [facility] [id number] [place] [address] 07947- 4439 Nov, Acute bronchitis 466.0 [facility] [id number] [place] [address] 53978- 7016 Nov, [facility] [place] [facility] [address] [id number] [place] [address]- 3918 Oct, [facility] [place] [facility] [address] [id number] [place] [address]- 1333 Sep, [facility] [place] [facility] [address] [id number] [place] [address]- 6504 Aug, [facility] [place] [facility] [address] [id number] [place] [address]- 5000 July, [facility] [place] [facility] [address] [id number] [place] [address]- 5432 Jun, [facility] [place] [facility] [address] [id number] [place] [address]- 3413 Jun, [facility] [place] [facility] [address] [facility] [id number] [place] [address]- 1205 May, [facility] [place] [facility] [address] [id number] [place] [address]- 3692 May, [facility] [place] [facility] [address] [id number] [place] [address]- 7443 Apr, [facility] [place] [facility] [address] [facility] [id number] [place] [address]- 3341 Apr, [facility] [place] [facility] [address] [id number] [place] [address]- 6385 Apr, [facility] [place] [facility] [address] [id number] [place] [address]- 2781 Apr, [facility] [place] [facility] [address] [id number] [place] [address]- 4283 Apr, [facility] [place] [facility] [address] [id number] [place] [address]- 5927 Apr, [facility] [place] [facility] [address] [facility] [id number] [place] [address]- 3024 Mar, [facility] [place] [facility] [address] [id number] [place] [address]- 8810 16 Mar, 2014 [facility] [address] [id number] [place] [address]- 3224 Feb, [facility] [place] [facility] [address] [id number] [place] [address]- 4229 Feb, [facility] [place] [facility] [address] [id number] [place] [address]- 8707 Feb, [facility] [place] [facility] [address] [id number] [place] [address]- 2676 Dec, [facility] [place] [facility] [address] [id number] [place] [address]- 1146 Dec, [facility] [place] [facility] [address] [id number] [place] [address]- 2011 Nov, [facility] [place] [facility] [address] [id number] [place] [address]- 9025 Nov, [facility] [place] [facility] [address] [id number] [place] [address]- 6635 Nov, [facility] [place] [facility] [address] [id number] [place] [address]- 2060 Nov, [facility] [place] [facility] [address] [id number] [place] [address]- 7770 Sep, [facility] [place] [facility] [address] [id number] [place] [address]- 5730 Sep, [facility] [place] [facility] [address] [id number] [place] [address]- 3588 Sep, [facility] [place] [facility] [address] [id number] [place] [address]- 1233 Sep, [facility] [place] [facility] [address] [id number] [place] [address]- 6274 Aug, [facility] [place] [facility] [address] [id number] [place] [address]- 3716 Aug, [facility] [place] [facility] [address] [id number] [place] [address]- 9794 Aug, [facility] [place] [facility] [address] [id number] [place] [address]- 6130 Aug, [facility] [place] [facility] [address] [id number] [place] [address]- 6814 July, [facility] [place] [facility] [address] [id number] [place] [address]- 0200 July, [facility] [place] [facility] [address] [id number] [place] [address]- 5698 Jun, [facility] [place] [facility] [address] [id number] [place] [address]- 0111 Jun, [facility] [place] [facility] [address] [id number] [place] [address]- 9223 Jun, [facility] [place] [facility] [address] [id number] [place] [address]- 3441 Jun, [facility] [place] [facility] [address] [id number] [place] [address]- 3631 Jun, [facility] [place] [facility] [address] [id number] [place] [address]- 7887 Jun, [facility] [place] [facility] [address] [id number] [place] [address]- 1949 Jun, [facility] [place] [facility] [address] [id number] [place] [address]- 8669 Jun, [facility] [place] [facility] [address] [id number] [place] [address]- 0863 May, [facility] [place] [facility] [address] [id number] [place] [address]- 1726 May, [facility] [place] [facility] [address] [id number] [place] 8009 May, [facility] [place] [facility] [address] [id number] [address]- 5177 May, [facility] [address] [id number] [place] [address]- 2121 May, [facility] [place] [facility] [address] [id number] [place] [address]- 7784 May, [facility] [place] [facility] [address] [id number] [place] [address]- 0856 Apr, [facility] [place] [facility] [address] [id number] [place] [address]- 2955 Apr, [facility] [place] [facility] [address] [id number] [place] [address]- 9082 Apr, [facility] [place] [facility] [address] [id number] [place] [address]- 6762 Apr, [facility] [place] [facility] [address] [id number] [place] [address]- 5687 Mar, [facility] [place] [facility] [address] [id number] [place] [address]- 2267 Mar, [facility] [place] [facility] [address] [id number] [place] [address]- 1401 Mar, [facility] [place] [facility] [address] [id number] [place] [address]- 8489 Mar, [facility] [place] [facility] [address] [id number] [place] [address]- 5778 Mar, [facility] [place] [facility] [address] [id number] [place] [address]- 0271 Mar, [facility] [place] [facility] [address] [id number] [place] [address]- 4944 Feb, [facility] [place] [facility] [address] [id number] [place] [address]- 0867 Feb, [facility] [place] [facility] [address] [id number] [place] [address]- 9873 Feb, [facility] [place] [facility] [address] [id number] [place] [address]- 7127 Feb, [facility] [address] [id number] [place] [address]- 7058 Feb, [facility] [place] [facility] [address] [id number] [place] [address]- 0281 Feb, [facility] [place] [facility] [address] [id number] [place] [address]- 1043 Feb, [facility] [address] [id number] [place] [address]- 5274 Feb, [facility] [place] [facility] [address] [id number] [place] [address]- 9601 Feb, [facility] [address] [id number] [place] [address]- 1318 Feb, [facility] [address] [id number] [place] [address]- 5665 Feb, [facility] [address] [id number] [place] [address]- 4986 Feb, [facility] [place] [facility] [address] [id number] [place] [address]- 1658 Jan, [facility] [place] [facility] [address] [id number] [place] [address]- 6477 Jan, [facility] [place] [facility] [address] [id number] [place] [address]- 0224 Jan, [facility] [place] [facility] [address] [id number] [place] [address]- 7608 Jan, [facility] [place] [facility] [address] [id number] [place] [address]- 9440 Jan, [facility] [place] [facility] [address] [id number] [place] [address]- 0359 Jan, [facility] [place] [facility] [address] [id number] [place] [address]- 9606 Jan, [facility] [place] [facility] [address] [id number] [place] 2115 Jan, [facility] [place] [facility] [address] [id number] [place] [address]- 0041 Jan, [facility] [place] [facility] [address] [id number] [place] [address]- 5385 Jan, [facility] [place] [facility] [address] [id number] [place] [address]- 3885 Dec, [facility] [place] [facility] [address] [id number] [place] [address]- 9532 Dec, [facility] [place] [facility] [address] [id number] [place] [address]- 1410 Nov, [facility] [place] [facility] [address] [id number] [place] [address]- 3083 Nov, [facility] [place] [facility] [address] [id number] [place] [address]- 5650 Nov, [facility] [place] [facility] [address] [id number] [place] [address]- 1342 05 Nov, 2012 [facility] [place] [facility] [address] [id number] [place] [address]- 5828 Nov, [facility] [place] [facility] [address] [id number] [place] [address]- 2199 Oct, [facility] [place] [facility] [address] [id number] [place] [address]- 1717 Oct, [facility] [place] [facility] [address] [id number] [place] [address]- 1010 Oct, [facility] [place] [facility] [address] [id number] [place] [address]- 1535 Oct, [facility] [place] [facility] [address] [id number] [place] [address]- 8749 Oct, [facility] [place] [facility] [address] [id number] [place] [address]- 7469 Sep, [facility] [address] [id number] [place] [address]- 2723 Sep, [facility] [address] [id number] [place] [address]- 7122 Sep, [facility] [address] [id number] [place] [address]- 7650 Sep, [facility] [address] [id number] [place] [address]- 5416 Sep, [facility] [address] [id number] [place] [address]- 5283 Sep, [facility] [address] [id number] [place] [address]- 9166 Aug, [facility] [address] [id number] [place] [address]- 9091 Aug, [facility] [address] [id number] [place] [address]- 1640 July, [facility] [address] [id number] [place] [address]- 2292 July, [facility] [address] [id number] [place] [address]- 5302 July, [facility] [address] [id number] [place] [address]- 2343 Jun, [facility] [address] [id number] [place] [address]- 2342 18 Jun, 2012 [facility] [address] [id number] [place] [address]- 4536 16 Jun, 2012 [facility] [address] [id number] [place] [address]- 2543 Jun, [facility] [address] [id number] [place] [address]- 0978 May, [facility] [address] [id number] [place] [address]- 8656 May, [facility] [place] [facility] [address] [id number] [place] [address]- 7336 Apr, [facility] [place] [facility] [address] [id number] [place] [address]- 9286 Apr, [facility] [place] [facility] [address] [id number] [place] [address]- 7976 Apr, [facility] [place] [facility] [address] [id number] [place] [address]- 2476 Apr, [facility] [place] [facility] [address] [id number] [place] [address]- 6896 Apr, [facility] [place] [facility] [address] [id number] [place] [address]- 3636 Apr, [facility] [place] [facility] [address] [facility] [id number] [place] [id number] Apr, [facility] [place] [facility] [address] [id number] [place] [address] Apr, [facility] [place] [facility] [address] [id number] [place] [address] Mar, [facility] [place] [facility] [address] [id number] [place] [address] Mar, [facility] [place] [facility] [address] [id number] [place] [address] Mar, [facility] [place] [facility] [address] [id number] [place] [address] Mar, [facility] [place] [facility] [address] [id number] [place] [address] Jan, [facility] [place] [facility] [address] [id number] [place] [address] Jan, [facility] [place] [facility] [address] [id number] [place] [address] Jan, [facility] [place] [facility] [address] [id number] [place] [address] Jan, [facility] [place] [facility] [address] [id number] [place] [address] Jan, [facility] [place] [facility] [address] [id number] [place] [address] Dec, [facility] [place] [facility] [address] [id number] [place] [address] Dec, [facility] [place] [facility] [address] [id number] [place] [address] Dec, [facility] [place] [facility] [address] [id number] [place] [address] Dec, [facility] [place] [facility] [address] [id number] [place] [address] Nov, [facility] [place] [facility] [address] [id number] [place] [address] Oct, [facility] [place] [facility] [address] [id number] [place] [address] Oct, [facility] [place] [facility] [address] [id number] [place] [address] Oct, [facility] [place] [facility] [address] [id number] [place] [address] Oct, [facility] [place] [facility] [address] [id number] [place] [address] Oct, [facility] [place] [facility] [address] [id number] [place] [address] Sep, [facility] [place] [facility] [address] [id number] [place] [address] Sep, [facility] [place] [facility] [address] [id number] [place] [address] Aug, [facility] [place] [facility] [address] [id number] [place] [address] Aug, [facility] [place] [facility] [address] [id number] [place] [address] Aug, [facility] [place] [facility] [address] [id number] [place] [address] Aug, [facility] [place] [facility] [address] [id number] [place] [address] July, [facility] [address] [id number] [place] [address] Jun, [facility] [place] [facility] [address] [id number] [place] [address] May, [facility] [address] [id number] [place] [address] May, [facility] [address] [id number] [place] [address] May, [facility] [place] [facility] [address] [id number] [place] [address] Mar, [facility] [address] [id number] [place] [address] Feb, [facility] [place] [facility] [address] [id number] [place] [address] Feb, [facility] [place] [facility] [address] [id number] [place] [address] Jan, [facility] [place] [facility] [address] [id number] [place] [address] Jan, [facility] [place] [facility] [address] [id number] [place] [address] Jan, [facility] [place] [facility] [address] [id number] [place] [address]- [address] Jan, [facility] [place] [facility] [address] [id number] [address] Jan, [facility] [address] [id number] [address] Dec, [facility] [id number] [address] Dec, [facility] [address] [id number] [address] Dec, [facility] [id number] [address] May, [facility] [address] [id number] [address] May, [facility] [id number] [address] Apr, [facility] [id number] [address] Jan, [facility] [address] [id number] [address] [id number] Apr, IMMUNIZATIONS No Known Immunizations SOCIAL HISTORY Never Assessed REASON FOR VISIT Controlled Med Refill 03/06/17 PLAN OF CARE VITAL SIGNS MEDICATIONS Medication Instructions Dosage Frequency Start Date End Date Duration Status Mason 5-325 MG Orally every 6 hrs PRN 1 tablet Feb, 28 days Active RESULTS No Results PROCEDURES [...]
--- OUTSIDE RECORDS SUMMARY | 2017-12-19 08:14 | XMS REPORT ---
Author Author SPENCER LOZA Organization [facility] Address [address] 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 Active 371032701 Problem Sciatica M54.30 Active 65874136 Problem Hepatitis C B19.20 Active 95009298 Problem HILARIO (obstructive sleep apnea) G47.33 Active 95362672 Problem Seborrheic keratoses L82.1 Active 078904768 Problem Other organ or system involvement in systemic lupus erythematosus M32.19 Active 62086730 Problem 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 E78.2 Active 157655614 Problem Lumbago with sciatica, right side M54.41 Active 811579935 Problem Other chronic pain G89.29 Active 24800330 Problem Other chronic pain G89.29 Active 80662339 Problem Acute right-sided low back pain with right-sided sciatica M54.41 Active 685692177 ALLERGIES No Information ENCOUNTERS Encounter Location Date Diagnosis [facility] [address] [id number], [place] [address] July, Other organ or system involvement in systemic lupus erythematosus M32.19 [facility] [address] [facility] [id number], [place] [address] July, [facility] [address] [id number] [address] Jun, Other organ or system involvement in systemic lupus erythematosus M32.19 ; BMI 40.0-44.9, adult Z68.41 ; Other chronic pain G89.29 and Controlled substance agreement signed Z79.899 [facility] [address] [address] May, Sciatica M54.30 [facility] [address] [address] 03 Apr, 2017 Sciatica M54.30 [facility] [address] [address]- [address] Mar, Sciatica M54.30 [facility] [address] [address]- [address] Feb, Sciatica M54.30 [place] [address] [address] 15 Jan, 2017 Sciatica M54.30 [place] [address] [address]- [address]151 14 Jan, 2017 Sciatica M54.30 [facility] [id number] [place] [address] 61345- 4581 19 Dec, 2016 Sciatica M54.30 [place] [address] [address]- [address] 18 Dec, 2016 Sciatica M54.30 [facility] [id number] [place] [address] 06195- 8249 29 Nov, 2016 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 E78.2 ; Chronic seasonal allergic rhinitis due to other allergen J30.2 and Family history of early CAD Z82.49 [facility] [id number] [place] [address] 67680- 8537 21 Nov, 2016 Sciatica M54.30 [facility] [id number] [place] [address] 19335- 5451 18 Nov, 2016 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 E78.2 ; Chronic seasonal allergic rhinitis due to other allergen J30.2 ; Family history of early CAD Z82.49 ; Other chronic pain G89.29 and Pain in left shoulder M25.512 [place] [id number] [place] [address] 63445- 6411 Nov, Acute pain of left shoulder M25.512 [facility] [id number] [place] [address] 64487- 0805 Oct, Sciatica M54.30 [facility] [id number] [place] [address] 15110- 0792 Oct, [facility] [id number] [place] [address] 17817- 0306 Sep, Sciatica M54.30 [facility] [id number] [place] [address] 34640- 7134 Sep, Acute pain of left shoulder M25.512 [facility] [id number] [place] [address] 98474- 3521 Sep, Acute pain of left shoulder M25.512 [place] [id number] [place] [address] 15379- 7245 Aug, Sciatica M54.30 [facility] [id number] [place] [address] 67017- 3677 Aug, Sciatica M54.30 ; Tobacco abuse Z72.0 and Tobacco abuse counseling Z71.6 [facility] [id number] [place] [address] 86845- 6849 Aug, Acute pain of left shoulder M25.512 [facility] [id number] [place] [address] 54732 -6145 Aug, Contusion of right shoulder, initial encounter S40.011A ; Acute pain of left shoulder M25.512 and Shortness of breath R06.02 [facility] [id number] [place] [address] 39574- 1223 Aug, Lumbago with sciatica, right side M54.41 [facility] [id number] [place] [address] 01707- 2757 July, [facility] [id number] [place] [address] 97365- 7247 July, Lumbago with sciatica, right side M54.41 [facility] [id number] [place] [address] 01683- 1842 Jun, Lumbago with sciatica, right side M54.41 [facility] [id number] [place] [address] 77664- 5123 May, Lumbago with sciatica, right side M54.41 [facility] [id number] [place] [address] 72855 -3681 May, Herpes zoster without complication B02.9 [facility] [id number] [place] [address] 54892 -6122 May, Back pain M54.9 and Acute right-sided low back pain with right-sided sciatica M54.41 [facility] [id number] [place] [address] 26968- 3501 Apr, [facility] [id number] [place] [address] 35891- 2692 Apr, Lumbago with sciatica, right side M54.41 and Other chronic pain G89.29 [place] [id number] [place] [address] 87048- 2487 Apr, [facility] [id number] [place] [address] 45273- 0588 Mar, [facility] [id number] [place] [address] 69501- 7751 Mar, [facility] [id number] [place] [address] 85556- 9956 Feb, [facility] [id number] [place] [address] 43891 -2808 Jan, Urinary frequency R35.0 [facility] [address] [place] [address]- 8034 Jan, [facility] [address] [place] [address] 41632- 2492 Dec, [facility] [address] [place] [address] 72941- 3870 Oct, [facility] [id number] [place] [address] 80061- 6555 Sep, [facility] [id number] [place] [address] 34321 -0698 Sep, Foreign body in left foot, initial encounter S90.852A [facility] [id number] [place] [address] 58808- 9682 Aug, [facility] [id number] [place] [address] 05239- 4021 July, Sciatica M54.30 [facility] [id number] [place] [address] 11761- 2592 Jun, [facility] [id number] [place] [address] 16139- 1734 May, Osteoarthritis M19.90 [facility] [id number] [place] [address] 66573- 0926 May, [facility] [address] [place] [address] 07800- 2316 May, Pain in right hip M25.551 [facility] [address], [place] [address] May, Tinea corporis B35.4 [facility] [id number] [place] [address] 25040- 2962 10 Apr, 2015 Pain in right hip M25.551 [facility] [address] [address]- 7390 Mar, Pain in right hip M25.551 [place] [address] [address]- 3447 Mar, [facility] [id number] [place] [address] 49535- 9577 Feb, Pain in right hip M25.551 [facility] [id number] [place] [address] 86930- 2510 Jan, Acute bronchitis, unspecified organism J20.9 and Cough R05 [facility] [id number] [place] [address] 39990- 2872 Jan, Pain in right hip M25.551 [facility] [id number] [place] [address] 21581- 6443 Dec, Pain in right hip M25.551 [facility] [id number] [place] [address] 47320- 4902 Nov, Acute bronchitis 466.0 [facility] [id number] [place] [address] 36735- 0821 Nov, [facility] [address] [place] [address] 98180- 9206 Oct, [facility] [id number] [place] [address] 42724- 0865 Sep, [facility] [address] [address]- 5102 Aug, [facility] [id number] [place] [address] 12790- 7201 July, [facility] [address] [place] [address] 08952- 0549 Jun, [facility] [id number] [place] [address] 56825- 7260 Jun, [facility] [address] [address]- 9349 May, [facility] [id number] [place] [address]- 9547 May, [facility] [place] [facility] [address] [id number] [place] [address]- 2292 Apr, 2014 [facility] [place] [facility] [address] [id number] [place] [address] Apr, 2014 [facility] [place] [facility] [address] [id number] [place] [address]- 4026 Apr, 2014 [facility] [place] [facility] [address] [id number] [place] [address]- 0855 Apr, 2014 [facility] [place] [facility] [address] [id number] [place] [address]- 0839 Apr, 2014 [facility] [place] [facility] [address] [id number] [place] [address] Apr, 2014 [facility] [place] [facility] [address] [facility] [id number] [place] [address]- 5499 Mar, [facility] [place] [facility] [address] [id number] [place] [address]- 4381 Mar, [facility] [place] [facility] [address] [facility] [id number] [place] [address]- 3500 Feb, [facility] [place] [facility] [address] [id number] [place] [address]- 7471 15 Feb, 2014 [facility] [place] [facility] [address] [id number] [place] [address]- 9623 Feb, [facility] [place] [facility] [address] [id number] [place] 8767 Dec, [facility] [place] [facility] [address] [id number] [place] 6886 Dec, [facility] [place] [facility] [address] [id number] [place] [address]- 6501 17 Nov, 2013 [facility] [place] [facility] [address] [id number] [place] [address]- 8832 Nov, [facility] [place] [facility] [address] [id number] [place] [address]- 7924 Nov, [facility] [place] [facility] [address] [id number] [place] [address]- 8798 Nov, [facility] [place] [facility] [address] [id number] [place] [address]- 4984 Sep, [facility] [place] [facility] [address] [id number] [place] [address]- 2478 Sep, [facility] [place] [facility] [address] [id number] [place] [address]- 7980 Sep, [facility] [place] [facility] [address] [id number] [place] [address]- 4917 Sep, [facility] [place] [facility] [address] [id number] [place] [address]- 5193 Aug, [facility] [place] [facility] [address] [id number] [place] [address]- 9555 Aug, [facility] [place] [facility] [address] [id number] [place] [address]- 3158 Aug, [facility] [place] [facility] [address] [id number] [place] [address]- 2732 Aug, [facility] [place] [facility] [address] [id number] [place] [address]- 8996 July, [facility] [place] [facility] [address] [id number] [place] [address]- 5647 July, [facility] [place] [facility] [address] [id number] [place] [address]- 5151 Jun, [facility] [place] [facility] [address] [id number] [place] [address]- 1757 Jun, [facility] [place] [facility] [address] [id number] [place] [address]- 3680 Jun, [facility] [place] [facility] [address] [id number] [place] [address]- 1802 Jun, [facility] [place] [facility] [address] [id number] [place] [address]- 9145 Jun, [facility] [place] [facility] [address] [id number] [place] 8212 Jun, [facility] [place] [facility] [address] [id number] [place] [address]- 6025 Jun, [facility] [place] [facility] [address] [id number] [place] [address]- 5537 Jun, [facility] [place] [facility] [address] [id number] [place] [address]- 7038 May, [facility] [place] [facility] [address] [id number] [place] [address]- 0731 May, [facility] [place] [facility] [address] [id number] [place] [address]- 1731 May, [facility] [place] [facility] [address] [id number] [place] [address]- 9770 May, [facility] [place] [facility] [address] [id number] [place] [address]- 8024 May, [facility] [place] [facility] [address] [id number] [place] [address]- 2054 May, [facility] [place] [facility] [address] [id number] [place] [address]- 2122 Apr, [facility] [place] [facility] [address] [id number] [place] [address]- 9120 Apr, [facility] [place] [facility] [address] [id number] [place] [address]- 4008 Apr, [facility] [place] [facility] [address] [id number] [place] [address]- 4631 Apr, [facility] [place] [facility] [address] [id number] [place] [address]- 9336 Mar, [facility] [address] [id number] [place] [address]- 5411 Mar, [facility] [place] [facility] [address] [id number] [place] [address]- 5262 Mar, [facility] [address] [id number] [place] [address]- 0501 Mar, [facility] [place] [facility] [address] [id number] [place] [address]- 2279 Mar, [facility] [address] [id number] [place] [address]- 9444 Mar, [facility] [place] [facility] [address] [id number] [place] [address]- 4036 Feb, [facility] [address] [id number] [place] [address]- 9568 Feb, [facility] [address] [id number] [place] [address]- 0839 Feb, [facility] [place] [facility] [address] [id number] [place] [address]- 7569 Feb, [facility] [place] [facility] [address] [id number], [place] [address]- 5078 Feb, [facility] [place] [facility] [address] [id number], [place] [address]- 7631 Feb, [facility] [place] [facility] [address] [id number], [place] [address]- 6295 Feb, [facility] [place] [facility] [address] [id number] [place] [address]- 2350 Feb, [facility] [place] [facility] [address] [id number], [place] [address]- 0355 Feb, [facility] [place] [facility] [address] [id number] [place] [address]- 6957 Feb, [facility] [place] [facility] [address] [id number] [place] [address]- 1230 Feb, [facility] [address] [id number] [place] [address]- 8819 Feb, [facility] [place] [facility] [address] [id number] [place] [address]- 8524 Jan, [facility] [place] [facility] [address] [id number] [place] [address]- 3006 Jan, [facility] [place] [facility] [address] [id number] [place] [address]- 7080 Jan, [facility] [place] [facility] [address] [id number] [place] [address]- 3299 Jan, [facility] [place] [facility] [address] [id number] [place] [address]- 8508 Jan, [facility] [place] [facility] [address] [id number] [place] [address]- 5286 Jan, [facility] [place] [facility] [address] [id number] [place] [address]- 6662 Jan, [facility] [place] [facility] [address] [id number] [place] [address]- 0005 Jan, [facility] [place] [facility] [address] [facility] [id number] [place] [address]- 4492 Jan, [facility] [place] [facility] [address] [id number] [place] [address]- 5958 Jan, [facility] [place] [facility] [address] [id number], [place] [address]- 1266 Dec, [facility] [place] [facility] [address] [id number] [place] [address]- 7856 Dec, [facility] [place] [facility] [address] [id number] [place] [address]- 0035 Nov, [facility] [place] [facility] [address] [id number], [place] [address]- 8441 Nov, [facility] [place] [facility] [address] [id number] [place] [address]- 2103 Nov, [facility] [place] [facility] [address] [id number] [place] [address]- 3382 Nov, [facility] [place] [facility] [address] [id number] [place] [address]- 2401 Nov, [facility] [place] [facility] [address] [id number] [place] [address]- 3766 Oct, [facility] [place] [facility] [address] [id number] [place] [address]- 5464 Oct, [facility] [place] [facility] [address] [id number] [place] [address]- 8045 Oct, [facility] [place] [facility] [address] [id number] [place] [address]- 1345 Oct, [facility] [place] [facility] [address] [id number] [place] [address]- 1413 Oct, [facility] [place] [facility] [address] [id number] [place] [address]- 5633 Sep, [facility] [place] [facility] [address] [id number] [place] [address]- 6444 Sep, [facility] [place] [facility] [address] [id number] [place] [address]- 0837 Sep, [facility] [place] [facility] [address] [id number] [place] [address]- 5557 Sep, [facility] [place] [facility] [address] [id number] [place] [address]- 6825 Sep, [facility] [place] [facility] [address] [id number] [place] [address]- 9786 Sep, [facility] [place] [facility] [address] [id number] [place] [address]- 1787 Aug, [facility] [place] [facility] [address] [id number] [place] [address]- 9957 Aug, [facility] [address] [id number] [place] [address]- 8729 July, [facility] [address] [id number] [place] [address]- 7181 July, [facility] [address] [facility] [id number] [place] [address]- 8570 July, [facility] [address] [id number] [place] [address]- 2546 Jun, [facility] [address] [id number] [place] [address]- 9242 Jun, [facility] [address] [facility] [id number], [place] [address]- 6186 Jun, [facility] [address] [facility] [id number] [place] [address]- 6946 Jun, [facility] [address] [id number], [place] [address]- 6292 May, [facility] [address] [facility] [id number], [place] [address]- 3425 May, [facility] [address] [facility] [id number], [place] [address]- 9656 Apr, [facility] [id number], [place] [address]- 3465 Apr, [facility] [address] [id number], [place] [address]- 3392 Apr, [facility] [address] [facility] [id number] [place] [address]- 0006 Apr, [facility] [address] [facility] [id number], [place] [address]- 3168 13 Apr, 2012 [facility] [address] [facility] [id number] [place] [address]- 1803 Apr, [facility] [place] [facility] [address] [id number] [place] [id number] Apr, [facility] [place] [facility] [address] [id number] [place] [address] Apr, [facility] [place] [facility] [address] [id number] [place] [address] Mar, [facility] [place] [facility] [address] [id number] [place] [address] Mar, [facility] [place] [facility] [address] [id number] [place] [address] Mar, [facility] [place] [facility] [address] [id number] [place] [address] Mar, [facility] [place] [facility] [address] [id number] [place] [address] Jan, [facility] [place] [facility] [address] [id number] [place] [address] Jan, [facility] [place] [facility] [address] [id number] [place] [address] Jan, [facility] [place] [facility] [address] [id number] [place] [address] Jan, [facility] [place] [facility] [address] [id number] [place] [address] Jan, [facility] [place] [facility] [address] [id number] [place] [address] Dec, [facility] [place] [facility] [address] [id number] [place] [address] Dec, [facility] [place] [facility] [address] [id number] [place] [address] Dec, [facility] [place] [facility] [address] [id number] [place] [address] Dec, [facility] [place] [facility] [address] [id number] [place] [address] Nov, [facility] [place] [facility] [address] [id number] [place] [address] Oct, [facility] [place] [facility] [address] [id number] [place] [address] Oct, [facility] [place] [facility] [address] [id number] [place] [address] Oct, [facility] [place] [facility] [address] [id number] [place] [address] Oct, [facility] [place] [facility] [address] [id number] [place] [address] Oct, [facility] [place] [facility] [address] [id number] [place] [address] Sep, [facility] [place] [facility] [address] [id number] [place] [address] Sep, [facility] [place] [facility] [address] [id number] [place] [address] Aug, [facility] [place] [facility] [address] [id number] [place] [address] Aug, [facility] [place] [facility] [address] [id number] [place] [address] Aug, [facility] [place] [facility] [address] [id number] [place] [address] Aug, [facility] [place] [facility] [address] [id number] [place] [address] July, [facility] [place] [facility] [address] [id number] [place] [address] Jun, [facility] [place] [facility] [address] [id number] [place] [address] May, [facility] [place] [facility] [address] [id number] [place] [address] May, [facility] [place] [facility] [address] [id number] [place] [address] 12 May, 2011 [facility] [place] [facility] [address] [id number] [place] [address] Mar, [facility] [place] [facility] [address] [id number] [place] [address] Feb, [facility] [place] [facility] [address] [id number] [place] [address] Feb, [facility] [place] [facility] [address] [id number] [place] [address] Jan, [facility] [place] [facility] [address] [id number] [place] [address] Jan, [facility] [place] [facility] [address] [id number] [place] [address] Jan, [facility] [place] [facility] [address] [id number] [place] [address] Jan, [facility] [place] [facility] [address] [id number] [place] [address] Jan, [facility] [place] [facility] [address] [id number] [place] [address] Dec, [facility] [place] [facility] [address] [facility] [id number] [place] [address] Dec, [facility] [place] [facility] [address] [id number] [place] [address] Dec, [facility] [place] [facility] [address] [id number] [place] [address] 18 May, 2009 [facility] [place] [facility] [address] [id number] [place] [address] 15 May, 2009 [facility] [place] [facility] [address] [id number] [place] [address] 17 Apr, 2009 [facility] [place] [facility] [address] [id number] [place] [address] Jan, [facility] [address] [facility] [id number] [place] [address] Apr, IMMUNIZATIONS No Known Immunizations SOCIAL HISTORY Never Assessed REASON FOR VISIT PT follow-up PLAN OF CARE Activity Details Follow Up 3 Weeks Reason:F/U PT VITAL SIGNS MEDICATIONS Unknown Medications RESULTS No Results PROCEDURES Procedure Date Ordered Result Body Site THERAPEUTIC EXERCISES Dec 02, 2016 INSTRUCTIONS MEDICATIONS ADMINISTERED No Known Medications MEDICAL [...]
--- OUTSIDE RECORDS SUMMARY | 2017-12-19 08:15 | XMS REPORT ---
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 Name Role Phone CHRISTA GLORIA Unavailable PROBLEMS Type Condition ICD9-CM Code IQX33-KT Code Onset Dates Condition Status SNOMED Code Problem Foreign body in left foot, initial encounter S90.852A Active 393524339 Problem Other chronic pain G89.29 Active 28812073 Problem Urinary frequency R35.0 Active 394195000 Problem Anxiety F41.9 Active 13569553 Problem Other organ or system involvement in systemic lupus erythematosus M32.19 Active 20921812 Problem Acute right-sided low back pain with right-sided sciatica M54.41 Active 146568472 Problem Lumbago with sciatica, right side M54.41 Active 485164301 Problem 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 E78.2 Active 852139036 Problem Other chronic pain G89.29 Active 44780070 Problem Seborrheic keratoses L82.1 Active 170293705 Problem Sciatica M54.30 Active 95353838 Problem Hepatitis C B19.20 Active 05351716 Problem HILARIO (obstructive sleep apnea) G47.33 Active 29636158 Problem 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 Active 821369483 ALLERGIES No Information ENCOUNTERS Encounter Location Date Diagnosis [facility] [id number] [address] Aug, [facility] [id number] [place] [address] 93547- 9872 July, Medicare annual wellness visit, initial Z00.00 ; Anxiety F41.9 ; HILARIO (obstructive sleep apnea) G47.33 ; Hepatitis C B19.20 and Other chronic pain G89.29 [facility] [id number] [place] [address] 18034- 2566 July, Anxiety F41.9 [facility] [id number] [place] [address] 94459- 2199 July, Other organ or system involvement in systemic lupus erythematosus M32.19 [facility] [id number] [place] [address] 24117- 4506 July, [facility] [id number] [place] [address] 01775- 5141 Jun, Other organ or system involvement in systemic lupus erythematosus M32.19 ; BMI 40.0-44.9, adult Z68.41 ; Other chronic pain G89.29 and Controlled substance agreement signed Z79.899 [facility] [id number] [place] [address] 88230- 9862 May, Sciatica M54.30 [facility] [id number] [place] [address] 34999- 4955 Apr, Sciatica M54.30 [facility] [id number] [place] [address] 39436- 6459 Mar, Sciatica M54.30 [facility] [address] [address]272- 9332 Feb, Sciatica M54.30 [facility] [id number] [place] [address] 53973- 2679 Jan, Sciatica M54.30 [facility] [id number] [place] [address] 45491- 0395 Jan, Sciatica M54.30 [facility] [id number] [place] [address] 79641- 1762 Dec, Sciatica M54.30 [facility] [id number] [place] [address] 71017- 2610 Dec, Sciatica M54.30 [facility] [id number] [place] [address] 51278- 1082 29 Nov, 2016 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 E78.2 ; Chronic seasonal allergic rhinitis due to other allergen J30.2 and Family history of early CAD Z82.49 [facility] [address] 61541- 6517 Nov, Sciatica M54.30 [place] [id number] [place] [address] 19301- 5627 18 Nov, 2016 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 E78.2 ; Chronic seasonal allergic rhinitis due to other allergen J30.2 ; Family history of early CAD Z82.49 ; Other chronic pain G89.29 and Pain in left shoulder M25.512 [place] [address] 68629- 5892 11 Nov, 2016 Acute pain of left shoulder M25.512 [address] [place] [address] 54764- 6024 Oct, Sciatica M54.30 [place] [address] 17802- 4700 Oct, [place] [address] 60871- 4195 Sep, Sciatica M54.30 [place] [place] [address] 51566- 7919 Sep, Acute pain of left shoulder M25.512 [address] [place] [address] 76607- 7310 Sep, Acute pain of left shoulder M25.512 [place] [id number] [place] [address] 62184- 5637 Aug, Sciatica M54.30 [place] [address] 63202- 3352 09 Aug, 2016 Sciatica M54.30 ; Tobacco abuse Z72.0 and Tobacco abuse counseling Z71.6 [place] [address] 39906- 4088 05 Aug, 2016 Acute pain of left shoulder M25.512 [facility] [id number] [place] [address] 29684 -8135 Aug, Contusion of right shoulder, initial encounter S40.011A ; Acute pain of left shoulder M25.512 and Shortness of breath R06.02 [place] [id number] [place] [address] 29272- 6058 Aug, Lumbago with sciatica, right side M54.41 [place] [id number] [place] [address] 65131- 2868 July, [place] [address] 40871- 3279 July, Lumbago with sciatica, right side M54.41 [place] [id number] [place] [address] 60916- 1247 Jun, Lumbago with sciatica, right side M54.41 [place] [id number] [place] [address] 18547- 7133 May, Lumbago with sciatica, right side M54.41 [facility] [id number] [place] [address] 65857 -6242 May, Herpes zoster without complication B02.9 [facility] [id number] [place] [address] 47335 -3836 May, Back pain M54.9 and Acute right-sided low back pain with right-sided sciatica M54.41 [place] [id number] [place] [address] 16824- 5152 Apr, [place] [address] 83083- 9903 Apr, Lumbago with sciatica, right side M54.41 and Other chronic pain G89.29 [place] [id number] [place] [address] 12557- 0961 Apr, [facility] [address] [address] 0123 Mar, [facility] [id number] [place] [address] 02588- 8940 Mar, [facility] [id number] [place] [address] 54593- 3654 Feb, [facility] [id number] [place] [address] 66845 -4153 Jan, Urinary frequency R35.0 [facility] [id number] [place] [address] 47811- 6792 Jan, [facility] [id number] [place] [address] 86093- 8743 Dec, [facility] [id number] [place] [address] 66380- 0600 Oct, [facility] [id number] [place] [address] 08057- 1816 Sep, [facility] [id number] [place] [address] 07292 -5249 Sep, Foreign body in left foot, initial encounter S90.852A [facility] [id number] [place] [address] 79452- 6634 Aug, [facility] [id number] [place] [address] 73864- 9543 July, Sciatica M54.30 [facility] [id number] [place] [address] 95125- 6123 Jun, [facility] [id number] [place] [address] 45197- 6336 May, Osteoarthritis M19.90 [facility] [id number] [place] [address] 85866- 4156 May, [facility] [id number] [place] [address] 21566- 8833 May, Pain in right hip M25.551 [facility] [id number] [place] [address] 49045 -7368 May, Tinea corporis B35.4 [facility] [address] [place] [address] 26975- 2364 10 Apr, 2015 Pain in right hip M25.551 [facility] [id number] [place] [address] 05437- 1651 Mar, Pain in right hip M25.551 [facility] [id number] [place] [address] 68056- 5745 Mar, [facility] [id number] [place] [address] 59271- 2538 Feb, Pain in right hip M25.551 [facility] [id number] [place] [address] 50088- 8695 Jan, Acute bronchitis, unspecified organism J20.9 and Cough R05 [facility] [id number] [place] [address] 16904- 1287 Jan, Pain in right hip M25.551 [facility] [address] [place] [address] 66722- 5217 Dec, Pain in right hip M25.551 [facility] [id number] [place] [address] 96048- 2924 Nov, Acute bronchitis 466.0 [facility] [address] [place] [address] 42919- 0759 Nov, [facility] [id number] [place] [address] 22134- 9564 Oct, [facility] [id number] [place] [address] 68176- 2177 Sep, [facility] [id number] [place] [address] 83599- 1000 Aug, [facility] [place] [facility] [address] [id number] [place] [address]- 4380 July, [facility] [place] [facility] [address] [facility] [id number] [place] [address]- 0193 Jun, [facility] [place] [facility] [address] [facility] [id number] [place] [address]- 2277 Jun, [facility] [place] [facility] [address] [id number] [place] [address]- 1149 May, [facility] [place] [facility] [address] [id number] [place] [address]- 6977 May, [facility] [place] [facility] [address] [facility] [id number] [place] 0407 Apr, [facility] [place] [facility] [address] [facility] [id number] [place] [address]- 4099 Apr, [facility] [place] [facility] [address] [facility] [id number] [place] [address]- 5231 Apr, [facility] [place] [facility] [address] [facility] [id number] [place] [address]- 1806 Apr, [facility] [place] [facility] [address] [facility] [id number] [place] [address]- 5850 Apr, [facility] [place] [facility] [address] [facility] [id number] [place] [address]- 9321 Apr, [facility] [place] [facility] [address] [facility] [id number] [address]- 4781 Mar, [facility] [place] [facility] [address] [id number] [place] [address]- 0935 Mar, [facility] [place] [facility] [address] [facility] [id number] [place] [address]- 2148 Feb, [facility] [place] [facility] [address] [facility] [id number] [address]- 5846 Feb, [facility] [place] [facility] [address] [id number] [place] [address]- 4531 Feb, [facility] [place] [facility] [address] [id number] [place] [address]- 1129 Dec, [facility] [place] [facility] [address] [id number] [place] [address]- 1209 Dec, [facility] [place] [facility] [address] [id number] [place] [address]- 2939 Nov, [facility] [place] [facility] [address] [id number] [place] [address]- 0094 Nov, [facility] [place] [facility] [address] [id number] [place] [address]- 6973 Nov, [facility] [place] [facility] [address] [id number] [place] [address]- 0583 Nov, [facility] [place] [facility] [address] [id number] [place] [address]- 5585 Sep, [facility] [place] [facility] [address] [id number] [place] [address]- 7153 Sep, [facility] [place] [facility] [address] [id number] [place] [address]- 4866 Sep, [facility] [place] [facility] [address] [id number] [place] [address]- 7282 Sep, [facility] [place] [facility] [address] [id number] [place] [address]- 0090 Aug, [facility] [place] [facility] [address] [id number] [place] [address]- 8627 Aug, [facility] [place] [facility] [address] [id number] [place] [address]- 7352 Aug, [facility] [place] [facility] [address] [id number] [place] [address]- 5318 Aug, [facility] [place] [facility] [address] [id number] [place] [address]- 4570 July, [facility] [place] [facility] [address] [id number] [place] [address]- 5266 July, [facility] [place] [facility] [address] [id number] [place] 2523 Jun, [facility] [place] [facility] [address] [id number] [place] [address]- 2408 Jun, [facility] [place] [facility] [address] [id number] [place] [address]- 0861 Jun, [facility] [place] [facility] [address] [id number] [place] [address]- 7299 Jun, [facility] [place] [facility] [address] [id number] [place] [address]- 9202 Jun, [facility] [place] [facility] [address] [id number] [place] [address]- 8848 Jun, [facility] [place] [facility] [address] [id number] [place] [address]- 3002 Jun, [facility] [place] [facility] [address] [id number] [place] [address]- 8499 Jun, [facility] [place] [facility] [address] [id number] [place] [address]- 2058 May, [facility] [place] [facility] [address] [id number] [place] [address]- 6284 May, [facility] [place] [facility] [address] [id number] [place] [address]- 3500 May, [facility] [place] [facility] [address] [id number] [place] [address]- 3536 May, [facility] [place] [facility] [address] [id number] [place] [address]- 7000 May, [facility] [place] [facility] [address] [id number] [place] [address]- 4013 May, [facility] [place] [facility] [address] [id number] [place] [address]- 2541 Apr, [facility] [place] [facility] [address] [id number] [place] [address]- 0706 Apr, [facility] [place] [facility] [address] [id number] [place] [address]- 5686 Apr, [facility] [place] [facility] [address] [id number] [place] [address]- 9826 Apr, [facility] [place] [facility] [address] [id number] [place] [address]- 4686 Mar, [facility] [place] [facility] [address] [id number] [place] [address]- 4403 Mar, [facility] [place] [facility] [address] [id number] [place] [address]- 2626 Mar, [facility] [place] [facility] [address] [id number] [place] [address]- 1975 Mar, [facility] [place] [facility] [address] [id number] [place] [address]- 2108 Mar, [facility] [place] [facility] [address] [id number] [place] [address]- 7810 Mar, [facility] [place] [facility] [address] [id number] [place] [address]- 1581 Feb, [facility] [place] [facility] [address] [id number] [place] [address]- 4517 Feb, [facility] [place] [facility] [address] [id number] [place] [address]- 5811 Feb, [facility] [place] [facility] [address] [id number] [place] [address]- 8396 Feb, [facility] [place] [facility] [address] [id number] [place] [address]- 2696 Feb, [facility] [place] [facility] [address] [id number] [place] [address]- 1530 Feb, [facility] [address] [id number] [place] 6123 Feb, [facility] [place] [facility] [address] [id number] [place] [address]- 0885 Feb, [facility] [place] [facility] [address] [facility] [id number] [place] 8819 Feb, [facility] [place] [facility] [address] [id number] [place] [address]- 6207 Feb, [facility] [place] [facility] [address] [id number] [place] [address]- 1615 Feb, [facility] [place] [facility] [address] [id number] [place] [address]- 2105 Feb, [facility] [place] [facility] [address] [id number] [place] [address]- 7317 Jan, [facility] [place] [facility] [address] [id number] [address]- 8023 Jan, [facility] [place] [facility] [address] [id number] [place] [address]- 6895 Jan, [facility] [place] [facility] [address] [id number] [place] [address]- 5021 Jan, [facility] [place] [facility] [address] [id number] [place] [address]- 4951 Jan, [facility] [place] [facility] [address] [id number] [place] [address]- 2641 Jan, [facility] [place] [facility] [address] [id number] [place] [address]- 6519 Jan, [facility] [place] [facility] [address] [id number] [place] [address]- 7122 Jan, [facility] [place] [facility] [address] [facility] [id number] [address]- 7785 Jan, [facility] [place] [facility] [address] [id number] [place] [address]- 9996 Jan, [facility] [place] [facility] [address] [id number] [place] [address]- 6063 Dec, [facility] [place] [facility] [address] [id number] [place] 0720 Dec, [facility] [place] [facility] [address] [id number] [place] [address]- 2953 Nov, [facility] [place] [facility] [address] [id number] [place] [address]- 3431 Nov, [facility] [place] [facility] [address] [id number] [place] [address]- 8473 Nov, [facility] [place] [facility] [address] [id number] [place] [address]- 8077 Nov, [facility] [place] [facility] [address] [id number] [place] [address]- 3400 Nov, [facility] [place] [facility] [address] [id number] [place] [address]- 2511 Oct, [facility] [place] [facility] [address] [id number] [place] [address]- 8088 Oct, [facility] [place] [facility] [address] [id number] [place] [address]- 4148 Oct, [facility] [place] [facility] [address] [id number] [place] [address]- 3599 Oct, [facility] [place] [facility] [address] [id number] [place] [address]- 8933 Oct, [facility] [place] [facility] [address] [id number] [place] [address]- 8644 Sep, [facility] [place] [facility] [address] [id number] [place] [address]- 8110 Sep, [facility] [place] [facility] [address] [id number] [place] 2393 Sep, [facility] [place] [facility] [address] [id number] [place] [address]- 7644 Sep, [facility] [address] [id number] [place] [address]- 6844 Sep, [facility] [address] [id number] [place] [address]- 5213 Sep, [facility] [address] [id number] [place] [address]- 2155 Aug, [facility] [address] [id number] [place] [address]- 3743 Aug, [facility] [address] [id number] [place] [address]- 1871 July, [facility] [address] [id number] [place] [address]- 1201 July, [facility] [address] [id number] [place] [address]- 4453 July, [facility] [address] [id number] [place] [address]- 4416 Jun, [facility] [address] [id number] [place] [address]- 8756 Jun, [facility] [address] [id number] [place] [address]- 6751 Jun, [facility] [address] [id number] [place] [address] Jun, [facility] [address] [id number] [place] [address] May, [facility] [place] [facility] [address] [id number] [place] [address] May, [facility] [place] [facility] [address] [id number] [place] [address] Apr, [facility] [place] [facility] [address] [id number] [place] [address] Apr, [facility] [address] [id number] [place] [address] Apr, [facility] [address] [id number] [place] [address] Apr, [facility] [address] [id number] [place] [address] Apr, [facility] [address] [id number] [place] [address] Apr, [facility] [address] [id number] [place] [id number] Apr, [facility] [address] [facility] [id number] [place] [address] Apr, [facility] [address] [id number] [place] [address] Mar, [facility] [address] [id number] [place] [address] Mar, [facility] [address] [id number] [place] [address] Mar, [facility] [address] [facility] [id number] [place] [address] Mar, [facility] [address] [id number] [place] [address] Jan, [facility] [address] [id number] [place] [address] Jan, [facility] [address] [id number] [place] [address] Jan, [facility] [place] [facility] [address] [facility] [id number] [place] [address] Jan, [facility] [address] [facility] [id number] [place] [address] Jan, [facility] [place] [facility] [address] [id number] [place] [address] Dec, [facility] [place] [facility] [address] [id number] [place] [address] Dec, [facility] [place] [facility] [address] [id number] [place] [address] Dec, [facility] [place] [facility] [address] [id number] [place] [address] Dec, [facility] [place] [facility] [address] [id number] [place] [address] Nov, [facility] [place] [facility] [address] [id number] [place] [address] Oct, [facility] [place] [facility] [address] [id number] [place] [address] Oct, [facility] [place] [facility] [address] [id number] [place] [address] Oct, [facility] [place] [facility] [address] [id number] [place] [address] Oct, [facility] [place] [facility] [address] [id number] [place] [address] Oct, [facility] [place] [facility] [address] [id number] [place] [address] Sep, [facility] [place] [facility] [address] [id number] [place] [address] Sep, [facility] [place] [facility] [address] [id number] [place] [address] Aug, [facility] [place] [facility] [address] [id number] [place] [address] Aug, [facility] [place] [facility] [address] [id number] [place] [address] Aug, [facility] [place] [facility] [address] [id number] [place] [address] Aug, [facility] [place] [facility] [address] [id number] [place] [address] July, [facility] [place] [facility] [address] [id number] [place] [address] Jun, [facility] [place] [facility] [address] [id number] [place] [address] May, [facility] [place] [facility] [address] [id number] [place] [address] May, [facility] [place] [facility] [address] [id number] [place] [address] May, [facility] [place] [facility] [address] [id number] [place] [address] Mar, [facility] [place] [facility] [address] [id number] [place] [address] Feb, [facility] [place] [facility] [address] [id number] [place] [address] Feb, [facility] [place] [facility] [address] [id number] [place] [address] Jan, [facility] [place] [facility] [address] [id number] [place] [address] Jan, [facility] [place] [facility] [address] [id number] [address] Jan, [facility] [place] [facility] [address] [id number] [address] Jan, [facility] [place] [facility] [address] [id number] [place] [address] 30 Jan, 2010 [facility] [place] [facility] [address] [id number] [place] [address] 20 Dec, 2009 [facility] [place] [facility] [address] [id number] [place] [address]- [address] 13 Dec, 2009 [facility] [place] [facility] [address] [facility] [id number] [address] Dec, [facility] [address] [id number] [address] May, [facility] [address] [id number] [address] May, [facility] [address] [facility] [id number] [address], [facility] [address] [id number] [id number] Jan, [facility] [address] [id number] [address] Apr, IMMUNIZATIONS No Known Immunizations SOCIAL HISTORY Never Assessed REASON FOR VISIT Controlled Med Refill 02/06/17 PLAN OF CARE VITAL SIGNS MEDICATIONS Medication Instructions Dosage Frequency Start Date End Date Duration Status [place] 5-325 MG Orally every 6 hrs PRN 1 tablet Jan, 28 days Active RESULTS No Results PROCEDURES [...]
--- OUTSIDE RECORDS SUMMARY | 2017-12-19 08:16 | XMS REPORT ---
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 [employer] Name Role Phone CHRISTA GLORIA Unavailable PROBLEMS Type Condition ICD9-CM Code UHS29-LY Code Onset Dates Condition Status SNOMED Code Problem Other chronic pain G89.29 Active 03654900 Problem Acute right-sided low back pain with right-sided sciatica M54.41 Active 336161732 Problem Lumbago with sciatica, right side M54.41 Active 754614583 Problem Asymptomatic menopausal state Z78.0 Active 94113416 Problem Episode of recurrent major depressive disorder, unspecified depression episode severity F33.9 Active 476003707 Problem 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 E78.2 Active 218325823 Problem Other chronic pain G89.29 Active 87175184 Problem Anxiety F41.9 Active 40476610 Problem Other organ or system involvement in systemic lupus erythematosus M32.19 Active 49111715 Problem Sciatica M54.30 Active 79426174 Problem Hepatitis C B19.20 Active 82649017 Problem HILARIO (obstructive sleep apnea) G47.33 Active 80827739 Problem 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 Active 484413270 Problem Seborrheic keratoses L82.1 Active 503821928 Problem Urinary frequency R35.0 Active 369306717 ALLERGIES No Information ENCOUNTERS Encounter Location Date Diagnosis [facility] [address] [facility] [id number] [address] Aug, [facility] [id number] [place] [address]12- 2342 Aug, Other organ or system involvement in systemic lupus erythematosus M32.19 [facility] [id number] [address] July, Medicare annual wellness visit, initial Z00.00 ; Anxiety F41.9 ; HILARIO (obstructive sleep apnea) G47.33 ; Hepatitis C B19.20 ; Other chronic pain G89.29 ; Asymptomatic menopausal state Z78.0 and Episode of recurrent major depressive disorder, unspecified depression episode severity F33.9 [facility] [id number] [place] [address] 21374- 2558 July, Anxiety F41.9 [place] [address] [address]- [address] July, Other organ or system involvement in systemic lupus erythematosus M32.19 [place] [id number] [place] [address] 23737- 3737 July, [place] [id number] [place] [address] 40014- 1064 Jun, Other organ or system involvement in systemic lupus erythematosus M32.19 ; BMI 40.0-44.9, adult Z68.41 ; Other chronic pain G89.29 and Controlled substance agreement signed Z79.899 [place] [id number] [place] [address] 05148- 5696 May, Sciatica M54.30 [place] [address] 59207- 3126 Apr, Sciatica M54.30 [place] [id number] [place] [address] 80528- 0290 Mar, Sciatica M54.30 [place] [id number] [place] [address] 28841- 9469 Feb, Sciatica M54.30 [place] [id number] [place] [address] 08621- 3797 15 Jan, 2017 Sciatica M54.30 [place] [id number] [place] [address] 19879- 6233 14 Jan, 2017 Sciatica M54.30 [place] [address] 58154- 7981 Dec, Sciatica M54.30 [facility] [address] [address]281- 8087 Dec, Sciatica M54.30 [facility] [address] 20986- 1118 29 Nov, 2016 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 E78.2 ; Chronic seasonal allergic rhinitis due to other allergen J30.2 and Family history of early CAD Z82.49 [place] [address] 38586- 8598 21 Nov, 2016 Sciatica M54.30 [place] [address] 20394- 5025 18 Nov, 2016 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 E78.2 ; Chronic seasonal allergic rhinitis due to other allergen J30.2 ; Family history of early CAD Z82.49 ; Other chronic pain G89.29 and Pain in left shoulder M25.512 [place] [address] 47133- 0064 11 Nov, 2016 Acute pain of left shoulder M25.512 [place] [address] 46829- 6919 Oct, Sciatica M54.30 [place] [address] 62229- 6028 Oct, [place] [address] 37801- 7508 Sep, Sciatica M54.30 [place] [address] 96640- 4646 Sep, Acute pain of left shoulder M25.512 [place] [address] 17539- 5070 Sep, Acute pain of left shoulder M25.512 [place] [address] 50245- 2072 Aug, Sciatica M54.30 [place] [address] 93310- 8977 Aug, Sciatica M54.30 ; Tobacco abuse Z72.0 and Tobacco abuse counseling Z71.6 [place] [address] 27068- 9196 Aug, Acute pain of left shoulder M25.512 [facility] IN [address] [address] -[address]65 Aug, Contusion of right shoulder, initial encounter S40.011A ; Acute pain of left shoulder M25.512 and Shortness of breath R06.02 [place] [address] 51760- 3333 Aug, Lumbago with sciatica, right side M54.41 [place] [address] 88368- 2629 July, [place] [address] 39665- 9522 July, Lumbago with sciatica, right side M54.41 [place] [address] 88706- 1423 Jun, Lumbago with sciatica, right side M54.41 [place] [address] 76287- 1869 May, Lumbago with sciatica, right side M54.41 [facility] WALK IN [place] [address] 70312 -7425 May, Herpes zoster without complication B02.9 [facility] [address] [address] -[address]686 May, Back pain M54.9 and Acute right-sided low back pain with right-sided sciatica M54.41 [place] [address] 52031- 8249 Apr, [facility] [id number] [place] [address] 86289- 0891 Apr, Lumbago with sciatica, right side M54.41 and Other chronic pain G89.29 [facility] [id number] [place] [address] 86266- 6372 Apr, [facility] [address] 70463- 8177 Mar, [facility] [id number] [place] [address] 88032- 0593 Mar, [facility] [address] 81910- 0981 Feb, [facility] [id number] [place] [address] 50437 -1164 Jan, Urinary frequency R35.0 [facility] [address] 60296- 7518 Jan, [facility] [id number] [place] [address] 57492- 6780 Dec, [facility] [address] 41408- 5770 Oct, [facility] [id number] [place] [address] 48910- 4974 Sep, [facility] [address] 70467 -2758 Sep, Foreign body in left foot, initial encounter S90.852A [facility] [address] 01932- 0915 Aug, [facility] [address] 88682- 6246 July, Sciatica M54.30 [facility] [address] 63386- 0437 Jun, [facility] [id number] [place] [address] 23391- 1516 May, Osteoarthritis M19.90 [facility] [id number] [place] [address] 02672- 6919 May, [facility] [id number] [place] [address] 24601- 2326 May, Pain in right hip M25.551 [facility] [id number] [place] [address] 56319 -5482 May, Tinea corporis B35.4 [facility] [address] 63097- 8089 Apr, Pain in right hip M25.551 [facility] [id number] [place] [address] 90771- 6524 Mar, Pain in right hip M25.551 [facility] [id number] [place] [address] 28619- 0089 Mar, [facility] [id number] [place] [address] 79817- 7370 Feb, Pain in right hip M25.551 [facility] [id number] [place] [address] 24292- 0546 Jan, Acute bronchitis, unspecified organism J20.9 and Cough R05 [facility] [id number] [place] [address] 76177- 6155 Jan, Pain in right hip M25.551 [facility] [id number] [place] [address] 99657- 7152 Dec, Pain in right hip M25.551 [facility] [id number] [place] [address] 38875- 4726 Nov, Acute bronchitis 466.0 [facility] [id number] [place] [address] 77054- 8897 Nov, [facility] [place] [facility] [address] [id number] [place] [address]- 0635 Oct, [facility] [place] [facility] [address] [id number] [place] [address]- 2680 Sep, [facility] [place] [facility] [address] [id number] [place] [address]- 1323 Aug, [facility] [place] [facility] [address] [id number] [place] [address]- 0126 July, [facility] [place] [facility] [address] [id number] [place] [address]- 7299 Jun, [facility] [place] [facility] [address] [id number] [place] [address]- 5132 Jun, [facility] [place] [facility] [address] [facility] [id number] [place] [address]- 3783 May, [facility] [place] [facility] [address] [id number] [place] [address]- 0941 May, [facility] [place] [facility] [address] [id number] [place] [address]- 2625 Apr, [facility] [place] [facility] [address] [facility] [id number] [place] [address]- 1693 Apr, [facility] [place] [facility] [address] [id number] [place] [address]- 6551 Apr, [facility] [place] [facility] [address] [id number] [place] [address]- 1893 Apr, [facility] [place] [facility] [address] [id number] [place] [address]- 6371 Apr, [facility] [place] [facility] [address] [id number] [place] [address]- 1780 Apr, [facility] [place] [facility] [address] [facility] [id number] [place] [address]- 5601 Mar, [facility] [place] [facility] [address] [id number] [place] [address]- 2957 16 Mar, 2014 [facility] [address] [id number] [place] [address]- 9481 Feb, [facility] [place] [facility] [address] [id number] [place] [address]- 4302 Feb, [facility] [place] [facility] [address] [id number] [place] [address]- 0258 Feb, [facility] [place] [facility] [address] [id number] [place] [address]- 5402 Dec, [facility] [place] [facility] [address] [id number] [place] [address]- 4939 Dec, [facility] [place] [facility] [address] [id number] [place] [address]- 8421 Nov, [facility] [place] [facility] [address] [id number] [place] [address]- 1760 Nov, [facility] [place] [facility] [address] [id number] [place] [address]- 4974 Nov, [facility] [place] [facility] [address] [id number] [place] [address]- 2388 Nov, [facility] [place] [facility] [address] [id number] [place] [address]- 2369 Sep, [facility] [place] [facility] [address] [id number] [place] [address]- 1562 Sep, [facility] [place] [facility] [address] [id number] [place] [address]- 9492 Sep, [facility] [place] [facility] [address] [id number] [place] [address]- 0175 Sep, [facility] [place] [facility] [address] [id number] [place] [address]- 6888 Aug, [facility] [place] [facility] [address] [id number] [place] [address]- 9528 Aug, [facility] [place] [facility] [address] [id number] [place] [address]- 7180 Aug, [facility] [place] [facility] [address] [id number] [place] [address]- 3004 Aug, [facility] [place] [facility] [address] [id number] [place] [address]- 6093 July, [facility] [place] [facility] [address] [id number] [place] [address]- 9869 July, [facility] [place] [facility] [address] [id number] [place] [address]- 0209 Jun, [facility] [place] [facility] [address] [id number] [place] [address]- 0793 Jun, [facility] [place] [facility] [address] [id number] [place] [address]- 2394 Jun, [facility] [place] [facility] [address] [id number] [place] [address]- 3508 Jun, [facility] [place] [facility] [address] [id number] [place] [address]- 3529 Jun, [facility] [place] [facility] [address] [id number] [place] [address]- 8859 Jun, [facility] [place] [facility] [address] [id number] [place] [address]- 1038 Jun, [facility] [place] [facility] [address] [id number] [place] [address]- 9269 Jun, [facility] [place] [facility] [address] [id number] [place] [address]- 0324 May, [facility] [place] [facility] [address] [id number] [place] [address]- 5919 May, [facility] [place] [facility] [address] [id number] [place] 0858 May, [facility] [place] [facility] [address] [id number] [address]- 9715 May, [facility] [address] [id number] [place] [address]- 2471 May, [facility] [place] [facility] [address] [id number] [place] [address]- 0020 May, [facility] [place] [facility] [address] [id number] [place] [address]- 5026 Apr, [facility] [place] [facility] [address] [id number] [place] [address]- 7558 Apr, [facility] [place] [facility] [address] [id number] [place] [address]- 1857 Apr, [facility] [place] [facility] [address] [id number] [place] [address]- 0184 Apr, [facility] [place] [facility] [address] [id number] [place] [address]- 1908 Mar, [facility] [place] [facility] [address] [id number] [place] [address]- 1223 Mar, [facility] [place] [facility] [address] [id number] [place] [address]- 7930 Mar, [facility] [place] [facility] [address] [id number] [place] [address]- 1400 Mar, [facility] [place] [facility] [address] [id number] [place] [address]- 3598 Mar, [facility] [place] [facility] [address] [id number] [place] [address]- 4502 Mar, [facility] [place] [facility] [address] [id number] [place] [address]- 9016 Feb, [facility] [place] [facility] [address] [id number] [place] [address]- 8911 Feb, [facility] [place] [facility] [address] [id number] [place] [address]- 9496 Feb, [facility] [place] [facility] [address] [id number] [place] [address]- 4677 Feb, [facility] [address] [id number] [place] [address]- 1975 Feb, [facility] [place] [facility] [address] [id number] [place] [address]- 9556 Feb, [facility] [place] [facility] [address] [id number] [place] [address]- 5735 Feb, [facility] [address] [id number] [place] [address]- 6502 Feb, [facility] [place] [facility] [address] [id number] [place] [address]- 4726 Feb, [facility] [address] [id number] [place] [address]- 2071 Feb, [facility] [address] [id number] [place] [address]- 7191 Feb, [facility] [address] [id number] [place] [address]- 4521 Feb, [facility] [place] [facility] [address] [id number] [place] [address]- 4926 Jan, [facility] [place] [facility] [address] [id number] [place] [address]- 8923 Jan, [facility] [place] [facility] [address] [id number] [place] [address]- 5022 Jan, [facility] [place] [facility] [address] [id number] [place] [address]- 6315 Jan, [facility] [place] [facility] [address] [id number] [place] [address]- 6086 Jan, [facility] [place] [facility] [address] [id number] [place] [address]- 0165 Jan, [facility] [place] [facility] [address] [id number] [place] [address]- 1266 Jan, [facility] [place] [facility] [address] [id number] [place] 1134 Jan, [facility] [place] [facility] [address] [id number] [place] [address]- 3322 Jan, [facility] [place] [facility] [address] [id number] [place] [address]- 9491 Jan, [facility] [place] [facility] [address] [id number] [place] [address]- 4078 Dec, [facility] [place] [facility] [address] [id number] [place] [address]- 5240 Dec, [facility] [place] [facility] [address] [id number] [place] [address]- 6393 Nov, [facility] [place] [facility] [address] [id number] [place] [address]- 3432 Nov, [facility] [place] [facility] [address] [id number] [place] [address]- 1760 Nov, [facility] [place] [facility] [address] [id number] [place] [address]- 3678 05 Nov, 2012 [facility] [place] [facility] [address] [id number] [place] [address]- 5133 Nov, [facility] [place] [facility] [address] [id number] [place] [address]- 9792 Oct, [facility] [place] [facility] [address] [id number] [place] [address]- 1898 Oct, [facility] [place] [facility] [address] [id number] [place] [address]- 1475 Oct, [facility] [place] [facility] [address] [id number] [place] [address]- 8247 Oct, [facility] [place] [facility] [address] [id number] [place] [address]- 0078 Oct, [facility] [place] [facility] [address] [id number] [place] [address]- 3695 Sep, [facility] [address] [id number] [place] [address]- 6649 Sep, [facility] [address] [id number] [place] [address]- 9081 Sep, [facility] [address] [id number] [place] [address]- 7093 Sep, [facility] [address] [id number] [place] [address]- 7626 Sep, [facility] [address] [id number] [place] [address]- 3707 Sep, [facility] [address] [id number] [place] [address]- 0645 Aug, [facility] [address] [id number] [place] [address]- 9091 Aug, [facility] [address] [id number] [place] [address]- 4320 July, [facility] [address] [id number] [place] [address]- 6155 July, [facility] [address] [id number] [place] [address]- 9470 July, [facility] [address] [id number] [place] [address]- 9093 Jun, [facility] [address] [id number] [place] [address]- 7054 18 Jun, 2012 [facility] [address] [id number] [place] [address]- 4949 16 Jun, 2012 [facility] [address] [id number] [place] [address] Jun, [facility] [address] [id number] [place] [address] May, [facility] [address] [id number] [place] [address] May, [facility] [place] [facility] [address] [id number] [place] [address] Apr, [facility] [place] [facility] [address] [id number] [place] [address] Apr, [facility] [place] [facility] [address] [id number] [place] [address] Apr, [facility] [place] [facility] [address] [id number] [place] [address] Apr, [facility] [place] [facility] [address] [id number] [place] [address] Apr, [facility] [place] [facility] [address] [id number] [place] [address] Apr, [facility] [place] [facility] [address] [facility] [id number] [place] [id number] Apr, [facility] [place] [facility] [address] [id number] [place] [address] Apr, [facility] [place] [facility] [address] [id number] [place] [address] Mar, [facility] [place] [facility] [address] [id number] [place] [address] Mar, [facility] [place] [facility] [address] [id number] [place] [address] Mar, [facility] [place] [facility] [address] [id number] [place] [address] Mar, [facility] [place] [facility] [address] [id number] [place] [address] Jan, [facility] [place] [facility] [address] [id number] [place] [address] Jan, [facility] [place] [facility] [address] [id number] [place] [address] Jan, [facility] [place] [facility] [address] [id number] [place] [address] Jan, [facility] [place] [facility] [address] [id number] [place] [address] Jan, [facility] [place] [facility] [address] [id number] [place] [address] Dec, [facility] [place] [facility] [address] [id number] [place] [address] Dec, [facility] [place] [facility] [address] [id number] [place] [address] Dec, [facility] [place] [facility] [address] [id number] [place] [address] Dec, [facility] [place] [facility] [address] [id number] [place] [address] Nov, [facility] [place] [facility] [address] [id number] [place] [address] 1989 Oct, [facility] [place] [facility] [address] [id number] [place] [address] Oct, [facility] [place] [facility] [address] [id number] [place] [address] Oct, [facility] [place] [facility] [address] [id number] [place] [address] Oct, [facility] [place] [facility] [address] [id number] [place] [address] Oct, [facility] [place] [facility] [address] [id number] [place] [address] Sep, [facility] [place] [facility] [address] [id number] [place] [address] Sep, [facility] [place] [facility] [address] [id number] [place] [address] Aug, [facility] [place] [facility] [address] [id number] [place] [address] Aug, [facility] [place] [facility] [address] [id number] [place] [address] Aug, [facility] [place] [facility] [address] [id number] [place] [address] Aug, [facility] [place] [facility] [address] [id number] [place] [address] July, [facility] [address] [id number] [place] [address] Jun, [facility] [place] [facility] [address] [id number] [place] [address] May, [facility] [address] [id number] [place] [address] May, [facility] [address] [id number] [place] [address] May, [facility] [place] [facility] [address] [id number] [place] [address] Mar, [facility] [address] [id number] [place] [address] Feb, [facility] [place] [facility] [address] [id number] [place] [address] Feb, [facility] [place] [facility] [address] [id number] [place] [address] Jan, [facility] [place] [facility] [address] [id number] [place] [address] Jan, [facility] [place] [facility] [address] [id number] [place] [address] 16[address] Jan, [facility] [place] [facility] [address] [id number] [place] [address] Jan, [facility] [place] [facility] [address] [id number] [address] Jan, [facility] [address] [id number] [address] Dec, [facility] [id number] [address] Dec, [facility] [address] [id number] [address] Dec, [facility] [address] [id number] [address] May, [facility] [facility] [address] [id number] [address] May, [facility] [id number] [address] Apr, [facility] [id number] [address] Jan, [facility] [address] [id number] [address] Apr, IMMUNIZATIONS No Known Immunizations SOCIAL HISTORY Never Assessed REASON FOR VISIT Controlled Med Refill 04/03/17 PLAN OF CARE VITAL SIGNS MEDICATIONS Medication Instructions Dosage Frequency Start Date End Date Duration Status [place] 5-325 MG Orally every 6 hrs PRN 1 tablet Mar, 28 days Active RESULTS No Results PROCEDURES [...]
--- OUTSIDE RECORDS SUMMARY | 2017-12-19 08:18 | XMS REPORT ---
Author Author CHRISTA GLORIA Organization [facility] Address [address] [place] [address] Care Team Providers Care Rubber Splicer Name Role Phone CHRISTA GLORIA Unavailable PROBLEMS Type Condition ICD9-CM Code ROK33-HY Code Onset Dates Condition Status SNOMED Code Problem Other chronic pain G89.29 Active 33336889 Problem Acute right-sided low back pain with right-sided sciatica M54.41 Active 505868207 Problem Lumbago with sciatica, right side M54.41 Active 584839814 Problem Asymptomatic menopausal state Z78.0 Active 77392476 Problem Episode of recurrent major depressive disorder, unspecified depression episode severity F33.9 Active 711115738 Problem 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 E78.2 Active 811238894 Problem Other chronic pain G89.29 Active 57073990 Problem Anxiety F41.9 Active 22201851 Problem Other organ or system involvement in systemic lupus erythematosus M32.19 Active 80632681 Problem Sciatica M54.30 Active 46035970 Problem Hepatitis C B19.20 Active 58952762 Problem HILARIO (obstructive sleep apnea) G47.33 Active 34019178 Problem 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 Active 907290253 Problem Seborrheic keratoses L82.1 Active 894814900 Problem Urinary frequency R35.0 Active 708694606 ALLERGIES No Information ENCOUNTERS Encounter Location Date Diagnosis [facility] [address] [facility] [id number], [place] [address] Aug, Anxiety F41.9 [facility] [address] [id number] [address] Aug, Other organ or system involvement in systemic lupus erythematosus M32.19 [facility] [address] [id number], [place] [address] July, Medicare annual wellness visit, initial Z00.00 ; Anxiety F41.9 ; HILARIO (obstructive sleep apnea) G47.33 ; Hepatitis C B19.20 ; Other chronic pain G89.29 ; Asymptomatic menopausal state Z78.0 and Episode of recurrent major depressive disorder, unspecified depression episode severity F33.9 [facility] [id number] [place] [address] 98382- 5479 July, Anxiety F41.9 [facility] [id number] [place] [address] 71863- 9056 July, Other organ or system involvement in systemic lupus erythematosus M32.19 [place] [id number] [place] [address] 81128- 7986 July, [place] [id number] [place] [address] 37302- 7346 Jun, Other organ or system involvement in systemic lupus erythematosus M32.19 ; BMI 40.0-44.9, adult Z68.41 ; Other chronic pain G89.29 and Controlled substance agreement signed Z79.899 [place] [id number] [place] [address] 11646- 5285 May, Sciatica M54.30 [place] [id number] [place] [address] 78013- 1025 03 Apr, 2017 Sciatica M54.30 [place] [id number] [place] [address] 44989- 1450 Mar, Sciatica M54.30 [place] [id number] [place] [address] 13159 2542 13 Feb, 2017 Sciatica M54.30 [place] [address] 03149- 7099 15 Jan, 2017 Sciatica M54.30 [place] [id number] [place] [address] 03553- 2178 14 Jan, 2017 Sciatica M54.30 [place] [id number] [place] [address] 43548- 8085 Dec, Sciatica M54.30 [place] [address] 45225- 8905 Dec, Sciatica M54.30 [place] [id number] [place] [address] 25702- 0982 29 Nov, 2016 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 E78.2 ; Chronic seasonal allergic rhinitis due to other allergen J30.2 and Family history of early CAD Z82.49 [place] [id number] [place] [address] 35457- 6858 Nov, Sciatica M54.30 [place] [address] 32468- 3743 18 Nov, 2016 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 E78.2 ; Chronic seasonal allergic rhinitis due to other allergen J30.2 ; Family history of early CAD Z82.49 ; Other chronic pain G89.29 and Pain in left shoulder M25.512 [place] [address] 92654- 6131 11 Nov, 2016 Acute pain of left shoulder M25.512 [place] [address] 48004- 4902 Oct, Sciatica M54.30 [place] [address] 83856- 8583 Oct, [place] [id number] [place] [address] 43116- 3567 Sep, Sciatica M54.30 [place] [id number] [place] [address] 51526- 3313 Sep, Acute pain of left shoulder M25.512 [place] [id number] [place] [address] 88867- 8254 Sep, Acute pain of left shoulder M25.512 [place] [address] 96020- 1712 Aug, Sciatica M54.30 [place] [id number] [place] [address] 91421- 9897 Aug, Sciatica M54.30 ; Tobacco abuse Z72.0 and Tobacco abuse counseling Z71.6 [place] [id number] [place] [address] 04558- 5820 Aug, Acute pain of left shoulder M25.512 [facility] [address] [address]26 Aug, Contusion of right shoulder, initial encounter S40.011A ; Acute pain of left shoulder M25.512 and Shortness of breath R06.02 [place] [address] 21307- 9496 Aug, Lumbago with sciatica, right side M54.41 [place] [address] 92741- 6917 July, [place] [address] 88484- 6453 July, Lumbago with sciatica, right side M54.41 [place] [address] 98617- 4839 Jun, Lumbago with sciatica, right side M54.41 [place] [id number] [place] [address] 94115- 6756 May, Lumbago with sciatica, right side M54.41 [facility] [place] [id number] [place] [address] 90878 -3492 May, Herpes zoster without complication B02.9 [facility] [place] [id number] [place] [address] 45000 -1238 May, Back pain M54.9 and Acute right-sided low back pain with right-sided sciatica M54.41 [place] [address] 00583- 1283 Apr, [facility] [id number] [place] [address] 00338- 3003 Apr, Lumbago with sciatica, right side M54.41 and Other chronic pain G89.29 [facility] [id number] [place] [address] 10500- 0923 Apr, [facility] [address] 70503- 1626 Mar, [facility] [address] 89856- 2935 Mar, [facility] [address] 55688- 7891 Feb, [facility] [address] 35269 -8816 Jan, Urinary frequency R35.0 [facility] [address] 64485- 5769 Jan, [facility] [id number] [place] [address] 87026- 2991 Dec, [facility] [id number] [place] [address] 06680- 1637 Oct, [facility] [id number] [place] [address] 82022- 2742 Sep, [facility] [id number] [place] [address] 32491 -0244 Sep, Foreign body in left foot, initial encounter S90.852A [facility] [id number] [place] [address] 91550- 0768 Aug, [facility] [id number] [place] [address] 68957- 0602 July, Sciatica M54.30 [facility] [address] 93595- 6440 Jun, [facility] [id number] [place] [address] 35221- 3676 May, Osteoarthritis M19.90 [facility] [id number] [place] [address] 22483- 0764 May, [facility] [id number] [place] [address] 00921- 4976 May, Pain in right hip M25.551 [facility] [id number] [place] [address] 10843 -5912 May, Tinea corporis B35.4 [facility] [address] 08333- 7276 10 Apr, 2015 Pain in right hip M25.551 [facility] [id number] [place] [address] 72844- 1827 Mar, Pain in right hip M25.551 [facility] [id number] [place] [address] 72968- 6922 Mar, [facility] [id number] [place] [address] 46315- 2960 Feb, Pain in right hip M25.551 [facility] [id number] [place] [address] 52543- 5520 Jan, Acute bronchitis, unspecified organism J20.9 and Cough R05 [facility] [id number] [place] [address] 84804- 6377 Jan, Pain in right hip M25.551 [facility] [id number] [place] [address] 44907- 2521 02 Dec, 2014 Pain in right hip M25.551 [facility] [id number] [place] [address] 57769- 8847 Nov, Acute bronchitis 466.0 [facility] [address] 47640- 6553 Nov, [facility] [place] [facility] [address] [id number] [place] [address]- 1886 Oct, [facility] [place] [facility] [address] [id number] [place] [address]- 7204 Sep, [facility] [place] [facility] [address] [facility] [id number] [place] [address]- 2087 Aug, [facility] [place] [facility] [address] [facility] [id number] [place] [address]- 0303 July, [facility] [place] [facility] [address] [id number] [place] [address]- 8269 Jun, [facility] [place] [facility] [address] [facility] [id number] [place] [address]- 3659 Jun, [facility] [place] [facility] [address] [facility] [id number] [place] [address]- 8805 May, [facility] [place] [facility] [address] [facility] [id number] [place] [address]- 6748 May, [facility] [place] [facility] [address] [facility] [id number] [place] [address]- 9599 Apr, [facility] [place] [facility] [address] [facility] [id number] [place] [address]- 9402 Apr, [facility] [place] [facility] [address] [facility] [id number], [place] [address]- 2376 Apr, [facility] [place] [facility] [address] [facility] [id number], [place] [address]- 1138 Apr, [facility] [place] [facility] [address] [facility] [id number] [place] [address]- 0526 Apr, [facility] [place] [facility] [address] [facility] [id number] [place] [address]- 7023 Apr, [facility] [place] [facility] [address] [facility] [id number] [place] [address]- 6206 Mar, [facility] [place] [facility] [address] [id number] [place] [address]- 5977 Mar, [facility] [place] [facility] [address] [id number] [place] [address]- 9706 Feb, [facility] [place] [facility] [address] [id number] [place] [address]- 0848 Feb, [facility] [place] [facility] [address] [id number] [place] [address]- 6802 Feb, [facility] [place] [facility] [address] [id number] [place] [address]- 2391 Dec, [facility] [place] [facility] [address] [id number] [place] [address]- 9259 Dec, [facility] [place] [facility] [address] [id number] [place] [address]- 2510 Nov, [facility] [place] [facility] [address] [id number] [place] [address]- 7447 Nov, [facility] [place] [facility] [address] [id number] [place] [address]- 3030 Nov, [facility] [place] [facility] [address] [id number] [place] [address]- 8837 Nov, [facility] [place] [facility] [address] [id number] [place] [address]- 0844 Sep, [facility] [place] [facility] [address] [id number] [place] [address]- 1277 Sep, [facility] [place] [facility] [address] [id number] [place] [address]- 4050 Sep, [facility] [place] [facility] [address] [id number] [place] [address]- 4896 Sep, [facility] [place] [facility] [address] [id number] [place] [address]- 9724 Aug, [facility] [place] [facility] [address] [id number] [place] [address]- 0656 Aug, [facility] [place] [facility] [address] [id number] [place] [address]- 8269 Aug, [facility] [place] [facility] [address] [id number] [place] [address]- 6823 Aug, [facility] [place] [facility] [address] [id number] [place] [address]- 8225 July, [facility] [place] [facility] [address] [id number] [place] [address]- 5920 July, [facility] [place] [facility] [address] [id number] [place] [address]- 2087 Jun, [facility] [place] [facility] [address] [id number] [place] [address]- 8058 Jun, [facility] [place] [facility] [address] [id number] [place] [address]- 3939 Jun, [facility] [place] [facility] [address] [id number] [place] [address]- 6955 Jun, [facility] [place] [facility] [address] [id number] [place] [address]- 2488 Jun, [facility] [place] [facility] [address] [id number] [place] [address]- 8517 Jun, [facility] [place] [facility] [address] [id number] [place] [address]- 3216 Jun, [facility] [place] [facility] [address] [id number] [place] [address]- 1822 Jun, [facility] [place] [facility] [address] [id number] [place] [address]- 7844 May, [facility] [place] [facility] [address] [id number] [place] 9944 May, [facility] [place] [facility] [address] [id number] [place] [address]- 9241 May, [facility] [place] [facility] [address] [id number] [place] [address]- 4864 May, [facility] [address] [id number] [place] [address]- 5185 May, [facility] [place] [facility] [address] [id number] [place] [address]- 6386 May, [facility] [place] [facility] [address] [id number] [place] [address]- 4807 Apr, [facility] [place] [facility] [address] [id number] [place] [address]- 0705 Apr, [facility] [place] [facility] [address] [id number] [place] [address]- 1291 Apr, [facility] [place] [facility] [address] [id number] [place] [address]- 5326 Apr, [facility] [place] [facility] [address] [id number] [place] [address]- 8234 Mar, [facility] [place] [facility] [address] [id number] [place] [address]- 9923 Mar, [facility] [place] [facility] [address] [id number] [place] [address]- 7313 Mar, [facility] [place] [facility] [address] [id number] [place] [address]- 3621 Mar, [facility] [place] [facility] [address] [id number] [place] [address]- 2563 Mar, [facility] [place] [facility] [address] [id number] [place] [address]- 2118 Mar, [facility] [place] [facility] [address] [id number] [place] [address]- 2984 Feb, [facility] [place] [facility] [address] [id number] [place] [address]- 9697 Feb, [facility] [place] [facility] [address] [id number] [place] [address]- 9283 Feb, [facility] [address] [id number] [place] [address]- 5372 Feb, [facility] [place] [facility] [address] [id number] [place] [address]- 0301 Feb, [facility] [place] [facility] [address] [id number] [place] [address]- 1859 Feb, [facility] [place] [facility] [address] [id number] [place] [address]- 9521 Feb, [facility] [address] [id number] [place] [address]- 1673 Feb, [facility] [place] [facility] [address] [id number] [place] [address]- 2843 Feb, [facility] [place] [facility] [address] [id number] [place] [address]- 6837 Feb, [facility] [place] [facility] [address] [id number], [place] [address]- 6112 Feb, [facility] [place] [facility] [address] [id number] [place] [address]- 9172 Feb, [facility] [place] [facility] [address] [id number], [place] [address]- 5478 Jan, [facility] [place] [facility] [address] [id number], [place] [address]- 5198 Jan, [facility] [place] [facility] [address] [id number], [place] [address]- 1740 Jan, [facility] [place] [facility] [address] [id number], [place] [address]- 1495 Jan, [facility] [place] [facility] [address] [id number], [place] [address]- 5297 Jan, [facility] [place] [facility] [address] [id number], [place] [address]- 0475 Jan, [facility] [place] [facility] [address] [id number], [place] [address]- 8863 Jan, [facility] [place] [facility] [address] [id number] [place] [address]- 3698 Jan, [facility] [place] [facility] [address] [id number] [place] [address]- 0985 Jan, [facility] [place] [facility] [address] [id number] [place] [address]- 0885 Jan, [facility] [place] [facility] [address] [id number] [place] [address]- 1882 Dec, [facility] [place] [facility] [address] [id number] [place] [address]- 6902 Dec, [facility] [place] [facility] [address] [id number] [place] [address]- 5371 Nov, [facility] [place] [facility] [address] [id number] [place] [address]- 6146 Nov, [facility] [place] [facility] [address] [id number] [place] [address]- 4532 Nov, [facility] [place] [facility] [address] [id number] [place] [address]- 2107 05 Nov, 2012 [facility] [place] [facility] [address] [facility] [id number] [place] [address]- 6047 Nov, [facility] [place] [facility] [address] [id number] [place] [address]- 0255 Oct, [facility] [place] [facility] [address] [id number], [place] [address]- 0555 Oct, [facility] [place] [facility] [address] [id number] [place] [address]- 0853 Oct, [facility] [place] [facility] [address] [facility] [id number] [place] [address]- 6415 Oct, [facility] [place] [facility] [address] [facility] [id number] [place] [address]- 5954 Oct, [facility] [place] [facility] [address] [id number] [place] [address]- 7254 Sep, [facility] [place] [facility] [address] [id number] [place] [address]- 6933 Sep, [facility] [place] [facility] [address] [id number] [place] [address]- 0719 Sep, [facility] [place] [facility] [address] [id number] [place] [address]- 7895 Sep, [facility] [place] [facility] [address] [id number] [place] [address]- 2864 Sep, [facility] [place] [facility] [address] [id number] [place] [address]- 4024 Sep, [facility] [place] [facility] [address] [id number] [place] [address]- 8588 Aug, [facility] [place] [facility] [address] [id number] [place] [address]- 8761 Aug, [facility] [place] [facility] [address] [id number] [place] [address]- 9223 July, [facility] [place] [facility] [address] [id number] [place] [address]- 8424 July, [facility] [place] [facility] [address] [id number] [place] [address]- 6802 July, [facility] [place] [facility] [address] [id number] [place] [address]- 0328 Jun, [facility] [place] [facility] [address] [id number] [place] [address]- 1328 18 Jun, 2012 [facility] [place] [facility] [address] [id number] [place] [address] 16 Jun, 2012 [facility] [place] [facility] [address] [id number] [place] [address] Jun, [facility] [place] [facility] [address] [id number] [place] [address] May, [facility] [place] [facility] [address] [id number] [place] [address] May, [facility] [place] [facility] [address] [id number] [place] [address] Apr, [facility] [place] [facility] [address] [id number] [place] [address] Apr, [facility] [place] [facility] [address] [id number] [place] [address] Apr, [facility] [place] [facility] [address] [id number] [place] [address] Apr, [facility] [place] [facility] [address] [id number] [place] [address] Apr, [facility] [place] [facility] [address] [id number] [place] [address] Apr, [facility] [place] [facility] [address] [facility] [id number] [place] [id number] Apr, [facility] [place] [facility] [address] [id number] [place] [address] Apr, [facility] [place] [facility] [address] [id number] [place] [address] Mar, [facility] [place] [facility] [address] [id number] [place] [address] Mar, [facility] [place] [facility] [address] [id number] [place] [address] Mar, [facility] [place] [facility] [address] [id number] [place] [address] Mar, [facility] [place] [facility] [address] [id number] [place] [address] Jan, [facility] [place] [facility] [address] [id number] [place] [address] Jan, [facility] [place] [facility] [address] [id number] [place] [address] Jan, [facility] [place] [facility] [address] [id number] [place] [address] Jan, [facility] [place] [facility] [address] [id number] [place] [address]- [address] Jan, [facility] [place] [facility] [address] [id number] [place] [address] Dec, [facility] [place] [facility] [address] [id number] [place] [address] Dec, [facility] [place] [facility] [address] [id number] [place] [address] Dec, [facility] [place] [facility] [address] [id number] [place] [address] Dec, [facility] [place] [facility] [address] [id number] [place] [address] Nov, [facility] [place] [facility] [address] [id number] [place] [address] Oct, [facility] [place] [facility] [address] [id number] [place] [address] Oct, [facility] [place] [facility] [address] [id number] [place] [address] Oct, [facility] [place] [facility] [address] [id number] [place] [address] Oct, [facility] [place] [facility] [address] [id number] [place] [address] Oct, [facility] [place] [facility] [address] [id number] [place] [address] Sep, [facility] [place] [facility] [address] [id number] [place] [address] Sep, [facility] [place] [facility] [address] [id number] [place] [address] Aug, [facility] [place] [facility] [address] [id number] [place] [address] Aug, [facility] [place] [facility] [address] [id number] [place] [address] Aug, [facility] [place] [facility] [address] [id number] [place] [address] Aug, [facility] [place] [facility] [address] [id number] [place] [address] July, [facility] [place] [facility] [address] [id number] [place] [address] Jun, [facility] [place] [facility] [address] [id number] [place] [address] May, [facility] [place] [facility] [address] [id number] [place] [address] May, [facility] [place] [facility] [address] [id number] [place] [address] May, [facility] [place] [facility] [address] [id number] [place] [address] Mar, [facility] [place] [facility] [address] [id number] [place] [address] Feb, [facility] [place] [facility] [address] [id number] [place] [address] Feb, [facility] [place] [facility] [address] [id number] [place] [address] Jan, [facility] [place] [facility] [address] [id number] [place] [address] Jan, [facility] [place] [facility] [address] [id number] [place] [address] 80[address] Jan, [facility] [place] [facility] [address] [id number] [place] [address] Jan, [facility] [place] [facility] [address] [id number] [address] 30 Jan, 2010 [facility] [id number] [place] [address] Dec, [facility] [facility] [address] [id number] [address] Dec, [facility] [id number], [place] [address] Dec, [facility] [id number] [place] [id number] May, [facility] [id number] [place] [phone] May, [facility] [id number], [place] [address] Apr, [facility] [id number] [address] Jan, [facility] [address] [id number] [address] Apr, IMMUNIZATIONS No Known Immunizations SOCIAL HISTORY Never Assessed REASON FOR VISIT Controlled Med Refill - 05/01/17 PLAN OF CARE VITAL SIGNS MEDICATIONS Medication Instructions Dosage Frequency Start Date End Date Duration Status [place] 5-325 MG Orally every 6 hrs PRN 1 tablet Apr, 28 days Active RESULTS No Results PROCEDURES [...]
--- OUTSIDE RECORDS SUMMARY | 2017-12-19 08:19 | XMS REPORT ---
Author Author CHRISTA GLORIA Organization [facility] Address [address] [place] [address] Care Team Providers Care Furniture Mover Name Role Phone CHRISTA GLORIA Unavailable PROBLEMS Type Condition ICD9-CM Code BSS60-WB Code Onset Dates Condition Status SNOMED Code Problem Other chronic pain G89.29 Active 25982095 Problem Acute right-sided low back pain with right-sided sciatica M54.41 Active 377828517 Problem Lumbago with sciatica, right side M54.41 Active 339874553 Problem Asymptomatic menopausal state Z78.0 Active 09119171 Problem Episode of recurrent major depressive disorder, unspecified depression episode severity F33.9 Active 896547315 Problem 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 E78.2 Active 248174093 Problem Other chronic pain G89.29 Active 52685412 Problem Anxiety F41.9 Active 76929206 Problem Other organ or system involvement in systemic lupus erythematosus M32.19 Active 66444797 Problem Sciatica M54.30 Active 07538226 Problem Hepatitis C B19.20 Active 11378584 Problem HILARIO (obstructive sleep apnea) G47.33 Active 44235462 Problem 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 Active 488596897 Problem Seborrheic keratoses L82.1 Active 346506099 Problem Urinary frequency R35.0 Active 831816611 ALLERGIES Substance Reaction Event Type Date Status Cymbalta drowsiness Drug Allergy Aug, Active ENCOUNTERS Encounter Location Date Diagnosis [facility] [address] [facility] [id number] [address] Oct, Other organ or system involvement in systemic lupus erythematosus M32.19 [facility] [address] [id number] [address] Sep, Other organ or system involvement in systemic lupus erythematosus M32.19 [facility] [id number] [place] [address] 71489- 9490 Aug, Anxiety F41.9 [facility] [id number] [place] [address] 30350- 6557 Aug, Other organ or system involvement in systemic lupus erythematosus M32.19 [facility] [id number] [place] [address] 12233- 4916 July, Medicare annual wellness visit, initial Z00.00 ; Anxiety F41.9 ; HILARIO (obstructive sleep apnea) G47.33 ; Hepatitis C B19.20 ; Other chronic pain G89.29 ; Asymptomatic menopausal state Z78.0 and Episode of recurrent major depressive disorder, unspecified depression episode severity F33.9 [facility] [id number] [place] [address] 30082- 4272 July, Anxiety F41.9 [facility] [id number] [place] [address] 43031- 0268 July, Other organ or system involvement in systemic lupus erythematosus M32.19 [facility] [id number] [place] [address] 09293- 8492 July, [facility] [id number] [place] [address] 84318- 8158 Jun, Other organ or system involvement in systemic lupus erythematosus M32.19 ; BMI 40.0-44.9, adult Z68.41 ; Other chronic pain G89.29 and Controlled substance agreement signed Z79.899 [facility] [id number] [place] [address] 19742- 2956 May, Sciatica M54.30 [facility] [id number] [place] [address] 94014- 1270 Apr, Sciatica M54.30 [facility] [id number] [place] [address] 01835- 3901 Mar, Sciatica M54.30 [facility] [id number] [place] [address] 74599- 0013 13 Feb, 2017 Sciatica M54.30 [facility] [id number] [place] [address] 63140- 1559 15 Jan, 2017 Sciatica M54.30 [facility] [id number] [place] [address] 13260- 1697 14 Jan, 2017 Sciatica M54.30 [facility] [id number] [place] [address] 72516- 2793 19 Dec, 2016 Sciatica M54.30 [facility] [id number] [place] [address] 35823- 8945 18 Dec, 2016 Sciatica M54.30 [place] [address] 52626- 3131 29 Nov, 2016 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 E78.2 ; Chronic seasonal allergic rhinitis due to other allergen J30.2 and Family history of early CAD Z82.49 [facility] [address] 15731- 7751 Nov, Sciatica M54.30 [facility] [id number] [place] [address] 98587- 3174 18 Nov, 2016 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 E78.2 ; Chronic seasonal allergic rhinitis due to other allergen J30.2 ; Family history of early CAD Z82.49 ; Other chronic pain G89.29 and Pain in left shoulder M25.512 [facility] [id number] [place] [address] 04737- 2619 11 Nov, 2016 Acute pain of left shoulder M25.512 [facility] [id number] [place] [address] 57802- 0350 Oct, Sciatica M54.30 [facility] [id number] [place] [address] 18717- 8179 Oct, [facility] [id number] [place] [address] 87142- 7218 Sep, Sciatica M54.30 [facility] [id number] [place] [address] 73396- 8831 Sep, Acute pain of left shoulder M25.512 [place] [address] 49857- 1411 Sep, Acute pain of left shoulder M25.512 [facility] [id number] [place] [address] 65716- 1421 Aug, Sciatica M54.30 [place] [address] 66118- 4396 Aug, Sciatica M54.30 ; Tobacco abuse Z72.0 and Tobacco abuse counseling Z71.6 [place] [address] 40424- 3845 Aug, Acute pain of left shoulder M25.512 [facility] [address] 19169 -8630 Aug, Contusion of right shoulder, initial encounter S40.011A ; Acute pain of left shoulder M25.512 and Shortness of breath R06.02 [place] [address] 15147- 7121 Aug, Lumbago with sciatica, right side M54.41 [facility] [id number] [place] [address] 86627- 3686 July, [facility] [id number] [place] [address] 09327- 9641 July, Lumbago with sciatica, right side M54.41 [facility] [id number] [place] [address] 06403- 4928 Jun, Lumbago with sciatica, right side M54.41 [facility] [id number] [place] [address] 43160- 5964 May, Lumbago with sciatica, right side M54.41 [facility] [address] [place] [address] May, Herpes zoster without complication B02.9 [facility] [address] 51171 -6386 May, Back pain M54.9 and Acute right-sided low back pain with right-sided sciatica M54.41 [facility] [address] 49699- 2086 Apr, [facility] [address] 95973- 1079 Apr, Lumbago with sciatica, right side M54.41 and Other chronic pain G89.29 [facility] [address] 43197- 9714 Apr, [facility] [address] 93879- 9282 Mar, [facility] [address] 67923- 2008 Mar, [facility] [id number] [place] [address] 87114- 9724 Feb, [facility] [id number] [place] [address] 02628 -5689 Jan, Urinary frequency R35.0 [facility] [id number] [place] [address] 59237- 5069 Jan, [facility] [id number] [place] [address] 54017- 1997 Dec, [facility] [id number] [place] [address] 54181- 5705 Oct, [facility] [id number] [place] [address] 86849- 2855 Sep, [facility] [id number] [place] [address] 48051 -6318 Sep, Foreign body in left foot, initial encounter S90.852A [facility] [id number] [place] [address] 23007- 6648 Aug, [facility] [id number] [place] [address] 79550- 2190 July, Sciatica M54.30 [facility] [id number] [place] [address] 68486- 7629 Jun, [facility] [id number] [place] [address] 61300- 9152 May, Osteoarthritis M19.90 [place] [address] 42607- 2201 May, [facility] [id number] [place] [address] 81349- 3649 May, Pain in right hip M25.551 [facility] [id number] [place] [address] 53910 -1617 May, Tinea corporis B35.4 [facility] [id number] [place] [address] 89507- 6674 Apr, Pain in right hip M25.551 [facility] [id number] [place] [address] 12023- 2934 Mar, Pain in right hip M25.551 [place] [id number] [place] [address] 71906- 1304 Mar, [facility] [id number] [place] [address] 03685- 7410 Feb, Pain in right hip M25.551 [facility] [id number] [place] [address] 91280- 7149 13 Jan, 2015 Acute bronchitis, unspecified organism J20.9 and Cough R05 [facility] [id number] [place] [address] 44913- 9102 Jan, Pain in right hip M25.551 [facility] [address] [facility] [id number] [place] [address]- 4495 Dec, Pain in right hip M25.551 [facility] [address] [id number] [address]7 Nov, Acute bronchitis 466.0 [facility] [address] [facility] [id number] [address]- 0746 Nov, [facility] [address] [facility] [id number] [address]- 4137 Oct, [facility] [address] [facility] [id number] [place] [address] 96144- 3722 Sep, [facility] [address] [address]- 6621 Aug, [facility] [id number] [place] [address] 90957- 2602 July, [facility] [address] [id number] [address]- 9413 Jun, [facility] [id number] [place] [address] 19050- 4006 Jun, [facility] [address] [address]- 6746 May, [facility] [address] [address]- 1899 May, [facility] [address] [id number] 3109 Apr, [facility] [address] [address]- 2468 Apr, [facility] [address] 2185 Apr, [facility] [address] 7429 Apr, [facility] [place] [facility] [address] [id number] [place] [address]- 7228 Apr, [facility] [place] [facility] [address] [id number] [place] [address]- 7751 Apr, [facility] [place] [facility] [address] [id number] [place] [address]- 9983 Mar, [facility] [place] [facility] [address] [id number] [place] [address]- 8710 Mar, [facility] [place] [facility] [address] [id number] [place] [address]- 0713 Feb, [facility] [place] [facility] [address] [id number] [place] [address]- 5502 Feb, [facility] [place] [facility] [address] [id number] [place] [address]- 5640 Feb, [facility] [place] [facility] [address] [id number] [place] [address]- 6440 Dec, [facility] [place] [facility] [address] [id number] [place] [address]- 7445 Dec, [facility] [place] [facility] [address] [id number] [place] [address]- 1682 Nov, [facility] [place] [facility] [address] [id number] [address]- 8012 Nov, [facility] [place] [facility] [address] [id number] [address]- 5802 Nov, [facility] [place] [facility] [address] [id number] [place] [address]- 3757 Nov, [facility] [place] [facility] [address] [id number] [place] [address]- 1597 Sep, [facility] [place] [facility] [address] [id number] [place] [address]- 3990 Sep, [facility] [place] [facility] [address] [id number] [place] [address]- 9021 Sep, [facility] [place] [facility] [address] [id number] [place] [address]- 5909 Sep, [facility] [place] [facility] [address] [id number] [place] [address]- 7723 Aug, [facility] [place] [facility] [address] [id number] [place] 3869 Aug, [facility] [place] [facility] [address] [id number] [place] [address]- 1358 Aug, [facility] [place] [facility] [address] [id number] [place] [address]- 2402 Aug, [facility] [place] [facility] [address] [id number] [place] [address]- 4682 July, [facility] [place] [facility] [address] [id number] [place] [address]- 7454 July, [facility] [place] [facility] [address] [id number] [place] [address]- 8770 Jun, [facility] [place] [facility] [address] [id number] [place] [address]- 5449 Jun, [facility] [place] [facility] [address] [id number] [place] [address]- 8513 Jun, [facility] [place] [facility] [address] [id number] [place] [address]- 7292 Jun, [facility] [place] [facility] [address] [id number] [place] [address]- 7560 Jun, [facility] [place] [facility] [address] [id number] [place] [address]- 7116 Jun, [facility] [place] [facility] [address] [id number] [place] [address]- 7083 Jun, [facility] [place] [facility] [address] [id number] [place] 3557 Jun, [facility] [place] [facility] [address] [id number] [place] [address]- 2433 May, [facility] [place] [facility] [address] [id number] [place] [address]- 2816 May, [facility] [place] [facility] [address] [id number] [place] [address]- 3307 May, [facility] [place] [facility] [address] [id number] [place] [address]- 8578 May, [facility] [place] [facility] [address] [id number] [place] [address]- 2213 May, [facility] [place] [facility] [address] [id number] [place] [address]- 8162 May, [facility] [place] [facility] [address] [id number] [place] [address]- 3286 Apr, [facility] [place] [facility] [address] [id number] [place] [address]- 6638 Apr, [facility] [place] [facility] [address] [id number] [place] [address]- 1397 Apr, [facility] [place] [facility] [address] [id number] [place] [address]- 9211 Apr, [facility] [place] [facility] [address] [id number] [place] [address]- 4010 Mar, [facility] [place] [facility] [address] [id number] [place] [address]- 3995 Mar, [facility] [place] [facility] [address] [id number] [place] [address]- 5003 Mar, [facility] [place] [facility] [address] [id number] [place] [address]- 2139 Mar, [facility] [place] [facility] [address] [id number] [place] [address]- 4238 Mar, [facility] [place] [facility] [address] [id number] [address]- 5824 Mar, [facility] [address] [id number] [place] [address]- 9659 Feb, [facility] [address] [id number] [place] [address]- 4584 Feb, [facility] [address] [facility] [id number] [place] [address]- 9414 Feb, [facility] [address] [id number] [place] 8746 Feb, [facility] [address] [id number] [place] [address]- 8459 Feb, [facility] [address] [id number] [place] [address]- 2564 Feb, [facility] [id number] [address]- 8291 Feb, [facility] [address] [id number] [place] [address]- 2587 Feb, [facility] [address] [facility] [id number] [place] [address]- 7084 Feb, [facility] [address] [facility] [id number] [place] [address]- 2809 Feb, [facility] [address] [id number] [address]- 3465 Feb, [facility] [place] [facility] [address] [id number] [address]- 6921 Feb, [facility] [place] [facility] [address] [id number] [address]- 4126 Jan, [facility] [place] [facility] [address] [facility] [id number] [place] [address]- 9285 Jan, [facility] [address] [facility] [id number] [place] [address]- 0646 Jan, [facility] [place] [facility] [address] [id number] [place] [address]- 3371 Jan, [facility] [place] [facility] [address] [id number] [place] [address]- 5771 Jan, [facility] [place] [facility] [address] [id number] [place] 6750 Jan, [facility] [place] [facility] [address] [id number] [place] [address]- 5160 Jan, [facility] [place] [facility] [address] [id number] [place] [address]- 2344 Jan, [facility] [place] [facility] [address] [id number] [place] [address]- 3892 Jan, [facility] [place] [facility] [address] [id number] [place] [address]- 8556 Jan, [facility] [place] [facility] [address] [id number] [place] [address]- 9242 Dec, [facility] [place] [facility] [address] [id number] [place] [address]- 9759 Dec, [facility] [place] [facility] [address] [id number] [place] [address]- 7320 Nov, [facility] [place] [facility] [address] [id number] [place] [address]- 7030 Nov, [facility] [place] [facility] [address] [id number] [place] [address]- 3401 Nov, [facility] [place] [facility] [address] [id number] [place] [address]- 2571 05 Nov, 2012 [facility] [place] [facility] [address] [id number] [place] [address]- 0674 Nov, [facility] [place] [facility] [address] [id number] [place] [address]- 2928 Oct, [facility] [place] [facility] [address] [id number] [place] [address]- 1093 Oct, [facility] [address] [id number] [place] [address]- 3938 Oct, [facility] [place] [facility] [address] [id number] [place] [address]- 7496 Oct, [facility] [place] [facility] [address] [id number] [place] [address]- 2873 Oct, [facility] [place] [facility] [address] [id number] [place] [address]- 8387 Sep, [facility] [place] [facility] [address] [id number] [place] [address]- 1209 Sep, [facility] [place] [facility] [address] [id number] [place] [address]- 0905 Sep, [facility] [place] [facility] [address] [id number] [place] [address]- 3706 Sep, [facility] [place] [facility] [address] [id number] [place] [address]- 5505 Sep, [facility] [place] [facility] [address] [id number] [place] [address]- 7147 Sep, [facility] [place] [facility] [address] [id number] [place] [address]- 2611 Aug, [facility] [place] [facility] [address] [id number] [place] [address]- 0020 Aug, [facility] [place] [facility] [address] [id number] [place] [address]- 9131 July, [facility] [place] [facility] [address] [id number] [place] [address] July, [facility] [place] [facility] [address] [id number] [place] [address] July, [facility] [place] [facility] [address] [id number] [place] [address] Jun, [facility] [place] [facility] [address] [id number] [place] [address] 18 Jun, 2012 [facility] [address] [id number] [place] [address] 16 Jun, 2012 [facility] [place] [facility] [address] [id number] [place] [address] Jun, [facility] [address] [id number] [place] [address] May, [facility] [address] [id number] [place] [address] May, [facility] [address] [id number] [place] [address] Apr, [facility] [address] [id number] [place] [address] Apr, [facility] [address] [id number] [place] [address] Apr, [facility] [address] [id number] [place] [address] Apr, [facility] [address] [id number] [place] [address] Apr, [facility] [address] [id number] [address] Apr, [facility] [address] [id number] [id number] Apr, [facility] [place] [facility] [address] [id number] [place] [address] Apr, [facility] [place] [facility] [address] [facility] [id number] [place] [address] Mar, [facility] [place] [facility] [address] [id number] [place] [address]- [address] Mar, [facility] [place] [facility] [address] [facility] [id number] [place] [address] Mar, [facility] [place] [facility] [address] [id number] [place] [address] Mar, [facility] [place] [facility] [address] [id number] [place] [address] Jan, [facility] [place] [facility] [address] [id number] [place] [address]183 Jan, [facility] [place] [facility] [address] [id number] [place] [address] Jan, [facility] [place] [facility] [address] [id number] [place] [address] Jan, [facility] [place] [facility] [address] [id number] [place] [address] Jan, [facility] [place] [facility] [address] [id number] [place] [address] Dec, [facility] [place] [facility] [address] [id number] [place] [address]- [address] Dec, [facility] [place] [facility] [address] [id number] [place] [address] Dec, [facility] [place] [facility] [address] [id number] [place] [address]- [address]149 Dec, [facility] [place] [facility] [address] [id number] [place] [address] Nov, [facility] [place] [facility] [address] [id number] [address] 2016 Oct, [facility] [place] [facility] [address] [id number] [place] [address] Oct, [facility] [place] [facility] [address] [id number] [place] [address] Oct, [facility] [place] [facility] [address] [id number] [place] [address]- [address]36 Oct, [facility] [place] [facility] [address] [id number] [place] [address] Oct, [facility] [place] [facility] [address] [id number] [place] [address] Sep, [facility] [place] [facility] [address] [id number] [place] [address] Sep, [facility] [place] [facility] [address] [id number] [place] [address]100 Aug, [facility] [place] [facility] [address] [id number] [place] [address]10 Aug, [facility] [place] [facility] [address] [id number] [place] [address]40 Aug, [facility] [place] [facility] [address] [id number] [place] [address] Aug, [facility] [place] [facility] [address] [id number] [place] [address]- [address] July, [facility] [place] [facility] [address] [id number] [place] [address]- [address] Jun, [facility] [place] [facility] [address] [id number] [place] [address]- [address] May, [facility] [place] [facility] [address] [id number] [place] [address]- [address] May, [facility] [place] [facility] [address] [id number] [place] [address]- [address] May, [facility] [place] [facility] [address] [id number] [place] [address] 39[address] Mar, [facility] [place] [facility] [address] [id number] [place] [address]- [address] Feb, [facility] [place] [facility] [address] [address] [id number] [place] [id number] Feb, [facility] [place] [facility] [address] [id number] [place] [address] Jan, [facility] [place] [facility] [id number] [address] Jan, [facility] [id number] [address] Jan, [facility] [id number] [address] Jan, [facility] [id number] [place] [address] Jan, [facility] [id number] [address] Dec, [facility] [id number] [place] [address] Dec, [facility] [id number] [address] Dec, [facility] [id number] [place] [address] May, [facility] [id number] [place] [address] May, [facility] [id number] [address] Apr, [facility] [id number] [address] Jan, [facility] [id number] [address] Apr, IMMUNIZATIONS No Known Immunizations SOCIAL HISTORY Never Assessed REASON FOR VISIT Anxiety f/u, PT reports she is still having panic attacks. augustine JONES PLAN OF CARE VITAL SIGNS Height 61 in 2017-09-11 Weight 209.5 lbs 2017-09-11 Temperature 98.8 degrees Fahrenheit 2017-09-11 Heart Rate 97 bpm 2017-09-11 Respiratory Rate 20 2017-09-11 Oximetry on room air:95 % 2017-09-11 BMI 39.58 kg/m2 2017-09-11 Blood pressure systolic 140 mmHg 2017-09-11 Blood pressure diastolic 80 mmHg 2017-09-11 MEDICATIONS Medication Instructions Dosage Frequency Start Date End Date Duration Status Fluoxetine HCl 40 MG Orally Once a day 1 capsule in the morning 24h Active Naproxen Sodium 500 MG Orally Twice a day 1 tablet 12h Active EVAN-e 400 MG Active Zocor 40 MG 1 tablet 24h 05 Nov, 2012 Not-Taking HydrOXYzine Pamoate 25 MG Orally 2 times a day 1 capsule as needed 12h July, 30 day(s) Active Multivitamins Orally Once a day 1 tablet 24h Active Plaquenil 200 mg 2 tablets 24h Active [place] 5-325 MG Orally every 6 hrs PRN 1 tablet Aug, 28 days Active PredniSONE 10 MG Orally Once a day 1 tablet 24h Active RESULTS No Results PROCEDURES Procedure Date Ordered Result Body Site [facility] VISIT ESTABLISHED PATIENT September 11, 2017 INSTRUCTIONS MEDICATIONS ADMINISTERED No Known Medications [...]
--- OUTSIDE RECORDS SUMMARY | 2017-12-19 08:20 | XMS REPORT ---
Author Author SAMANTHA DAVID Organization [facility] Address [address] [place] [address] Care Team Providers Care Rn Ambulatory Name Role Phone SINGHDAVID Marti Unavailable PROBLEMS Type Condition ICD9-CM Code RJR53-DO Code Onset Dates Condition Status SNOMED Code Problem Other chronic pain G89.29 Active 35152937 Problem Acute right-sided low back pain with right-sided sciatica M54.41 Active 687474908 Problem Lumbago with sciatica, right side M54.41 Active 862969630 Problem Asymptomatic menopausal state Z78.0 Active 06458963 Problem Episode of recurrent major depressive disorder, unspecified depression episode severity F33.9 Active 927425114 Problem 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 E78.2 Active 699552575 Problem Other chronic pain G89.29 Active 35415100 Problem Anxiety F41.9 Active 63973565 Problem Other organ or system involvement in systemic lupus erythematosus M32.19 Active 30558396 Problem Sciatica M54.30 Active 27827987 Problem Hepatitis C B19.20 Active 03621820 Problem HILARIO (obstructive sleep apnea) G47.33 Active 71106046 Problem 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 Active 052017738 Problem Seborrheic keratoses L82.1 Active 507707731 Problem Urinary frequency R35.0 Active 752625093 ALLERGIES Substance Reaction Event Type Date Status Cymbalta drowsiness Drug Allergy May, Active ENCOUNTERS Encounter Location Date Diagnosis [facility] [address] [facility] [id number] [address] Aug, [facility] [address] [id number] [address] Aug, Other organ or system involvement in systemic lupus erythematosus M32.19 [facility] [id number] [place] [address] 97718- 9690 July, Medicare annual wellness visit, initial Z00.00 ; Anxiety F41.9 ; HILARIO (obstructive sleep apnea) G47.33 ; Hepatitis C B19.20 ; Other chronic pain G89.29 ; Asymptomatic menopausal state Z78.0 and Episode of recurrent major depressive disorder, unspecified depression episode severity F33.9 [place] [id number] [place] [address] 67207- 7463 July, Anxiety F41.9 [place] [id number] [place] [address] 50611- 8822 July, Other organ or system involvement in systemic lupus erythematosus M32.19 [place] [id number] [place] [address] 53899- 0029 July, [place] [id number] [place] [address] 74895- 8706 Jun, Other organ or system involvement in systemic lupus erythematosus M32.19 ; BMI 40.0-44.9, adult Z68.41 ; Other chronic pain G89.29 and Controlled substance agreement signed Z79.899 [place] [id number] [place] [address] 38612- 7601 May, Sciatica M54.30 [place] [id number] [place] [address] 70321- 6200 Apr, Sciatica M54.30 [place] [id number] [place] [address] 59818- 6384 Mar, Sciatica M54.30 [place] [id number] [place] [address] 77800- 0908 Feb, Sciatica M54.30 [place] [id number] [place] [address] 70863- 9060 15 Jan, 2017 Sciatica M54.30 [place] [id number] [place] [address] 83186- 3614 14 Jan, 2017 Sciatica M54.30 [facility] [id number] [place] [address] 92806- 0673 Dec, Sciatica M54.30 [facility] [address] 81485- 9406 Dec, Sciatica M54.30 [facility] [id number] [place] [address] 24082- 7714 Nov, 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 E78.2 ; Chronic seasonal allergic rhinitis due to other allergen J30.2 and Family history of early CAD Z82.49 [place] [address] 91537- 6021 Nov, Sciatica M54.30 [place] [id number] [place] [address] 34539- 5679 Nov, 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 E78.2 ; Chronic seasonal allergic rhinitis due to other allergen J30.2 ; Family history of early CAD Z82.49 ; Other chronic pain G89.29 and Pain in left shoulder M25.512 [place] [address] 58326- 1122 Nov, Acute pain of left shoulder M25.512 [place] [address] 97331- 6533 Oct, Sciatica M54.30 [facility] [id number] [place] [address] 45119- 3929 Oct, [facility] [id number] [place] [address] 48296- 7163 Sep, Sciatica M54.30 [facility] [id number] [place] [address] 38840- 5603 Sep, Acute pain of left shoulder M25.512 [facility] [id number] [place] [address] 82500- 2610 Sep, Acute pain of left shoulder M25.512 [facility] [address] [place] [address]- 4962 Aug, Sciatica M54.30 [place] [address] 26362- 7304 Aug, Sciatica M54.30 ; Tobacco abuse Z72.0 and Tobacco abuse counseling Z71.6 [place] [id number] [place] [address] 43865- 7109 Aug, Acute pain of left shoulder M25.512 [facility] [place] [id number] [place] [address] 26610 -4007 Aug, Contusion of right shoulder, initial encounter S40.011A ; Acute pain of left shoulder M25.512 and Shortness of breath R06.02 [place] [id number] [place] [address] 83665- 1508 Aug, Lumbago with sciatica, right side M54.41 [place] [address] 42646- 6190 July, [place] [address] 77075- 8010 July, Lumbago with sciatica, right side M54.41 [place] [id number] [place] [address] 79592- 9950 Jun, Lumbago with sciatica, right side M54.41 [place] [id number] [place] [address] 88958- 2344 May, Lumbago with sciatica, right side M54.41 [facility] [place] [id number] [place] [address] 87012 -4865 May, Herpes zoster without complication B02.9 [facility] [place] [id number] [place] [address] 10827 -8714 May, Back pain M54.9 and Acute right-sided low back pain with right-sided sciatica M54.41 [place] [id number] [place] [address] 88552- 1561 Apr, [facility] [id number] [place] [address] 83213- 5430 Apr, Lumbago with sciatica, right side M54.41 and Other chronic pain G89.29 [facility] [id number] [place] [address] 42867- 6467 Apr, [facility] [address] 15511- 1516 Mar, [facility] [id number] [place] [address] 15741- 5667 Mar, [facility] [id number] [place] [address] 47619- 4859 Feb, [facility] [id number] [place] [address] 62538 -2848 Jan, Urinary frequency R35.0 [facility] [id number] [place] [address] 71349- 9919 Jan, [facility] [id number] [place] [address] 04708- 7041 Dec, [facility] [id number] [place] [address] 16710- 8012 Oct, [facility] [id number] [place] [address] 28818- 1569 Sep, [facility] [id number] [place] [address] 91193 -5011 Sep, Foreign body in left foot, initial encounter S90.852A [facility] [id number] [place] [address] 58969- 5972 Aug, [facility] [id number] [place] [address] 38868- 0244 July, Sciatica M54.30 [facility] [address] [id number] [address]- 6860 Jun, [facility] [id number] [place] [address] 06737- 9149 May, Osteoarthritis M19.90 [facility] [id number] [place] [address] 71716- 5309 May, [facility] [id number] [place] [address] 02882- 0733 May, Pain in right hip M25.551 [facility] [address] [place] [address] 50877 -5649 May, Tinea corporis B35.4 [facility] [id number] [place] [address] 61257- 3760 10 Apr, 2015 Pain in right hip M25.551 [facility] [id number] [place] [address] 18625- 6160 Mar, Pain in right hip M25.551 [facility] [id number] [place] [address] 45371- 2980 Mar, [facility] [id number] [place] [address] 81080- 0369 Feb, Pain in right hip M25.551 [facility] [id number] [place] [address] 98481- 9976 Jan, Acute bronchitis, unspecified organism J20.9 and Cough R05 [facility] [address] [place] [address] 75508- 6161 Jan, Pain in right hip M25.551 [facility] [id number] [place] [address] 07181- 6252 02 Dec, 2014 Pain in right hip M25.551 [facility] [address] [place] [address] 76881- 7382 Nov, Acute bronchitis 466.0 [facility] [place] [facility] [address] [id number] [place] [address]- 2528 Nov, [facility] [place] [facility] [address] [id number] [place] [address]- 6191 Oct, [facility] [place] [facility] [address] [id number] [place] [address]- 5040 Sep, [facility] [place] [facility] [address] [id number] [place] [address]- 1631 Aug, [facility] [place] [facility] [address] [id number] [place] [address]- 4001 July, [facility] [place] [facility] [address] [id number] [place] [address]- 7237 Jun, [facility] [place] [facility] [address] [facility] [id number] [place] [address]- 2609 Jun, [facility] [place] [facility] [address] [id number] [place] [address]- 7256 May, [facility] [place] [facility] [address] [id number] [place] [address]- 7659 May, [facility] [place] [facility] [address] [facility] [id number] [place] [address]- 4752 Apr, [facility] [place] [facility] [address] [facility] [id number] [place] [address]- 9270 Apr, [facility] [place] [facility] [address] [facility] [id number] [place] [address]- 7903 Apr, [facility] [place] [facility] [address] [facility] [id number] [place] [address]- 6524 Apr, [facility] [place] [facility] [address] [id number] [place] 0659 Apr, [facility] [place] [facility] [address] [facility] [id number] [place] [address]- 1907 Apr, [facility] [place] [facility] [address] [facility] [id number] [place] [address]- 8477 Mar, [facility] [place] [facility] [address] [id number] [place] [address]- 5101 Mar, [facility] [place] [facility] [address] [id number] [place] 3872 Feb, [facility] [place] [facility] [address] [id number] [place] [address]- 9381 Feb, [facility] [place] [facility] [address] [id number] [place] [address]- 8743 Feb, [facility] [place] [facility] [address] [id number] [place] [address]- 0876 Dec, [facility] [place] [facility] [address] [id number] [place] [address]- 6885 Dec, [facility] [place] [facility] [address] [id number] [place] [address]- 2511 Nov, [facility] [place] [facility] [address] [id number] [place] [address]- 3499 Nov, [facility] [place] [facility] [address] [id number] [place] [address]- 8652 Nov, [facility] [place] [facility] [address] [id number] [place] [address]- 5428 Nov, [facility] [place] [facility] [address] [id number] [place] [address]- 3366 Sep, [facility] [place] [facility] [address] [id number] [place] [address]- 2699 Sep, [facility] [place] [facility] [address] [id number] [place] [address]- 5653 Sep, [facility] [place] [facility] [address] [id number] [place] [address]- 8528 Sep, [facility] [place] [facility] [address] [id number] [place] [address]- 9053 Aug, [facility] [place] [facility] [address] [id number] [place] [address]- 9716 Aug, [facility] [place] [facility] [address] [id number] [place] [address]- 1360 Aug, [facility] [place] [facility] [address] [id number] [place] [address]- 8935 Aug, [facility] [place] [facility] [address] [id number] [place] [address]- 6693 July, [facility] [place] [facility] [address] [id number] [place] [address]- 2973 July, [facility] [place] [facility] [address] [id number] [place] 8771 Jun, [facility] [place] [facility] [address] [id number] [place] [address]- 9624 Jun, [facility] [place] [facility] [address] [id number] [place] [address]- 6994 Jun, [facility] [place] [facility] [address] [id number] [place] [address]- 4962 Jun, [facility] [place] [facility] [address] [id number] [place] [address]- 4246 Jun, [facility] [place] [facility] [address] [id number] [place] [address]- 3465 Jun, [facility] [place] [facility] [address] [id number] [place] [address]- 8669 Jun, [facility] [place] [facility] [address] [id number] [place] [address]- 6072 Jun, [facility] [place] [facility] [address] [id number] [place] [address]- 2515 May, [facility] [place] [facility] [address] [id number] [place] [address]- 2116 May, [facility] [place] [facility] [address] [id number] [place] [address]- 7191 May, [facility] [place] [facility] [address] [id number] [place] [address]- 9712 May, [facility] [place] [facility] [address] [id number] [place] [address]- 5122 May, [facility] [place] [facility] [address] [id number] [place] [address]- 7541 May, [facility] [place] [facility] [address] [id number] [place] [address]- 2064 Apr, [facility] [place] [facility] [address] [id number] [place] [address]- 8997 Apr, [facility] [place] [facility] [address] [id number] [place] [address]- 0018 Apr, [facility] [place] [facility] [address] [id number] [place] [address]- 5388 Apr, [facility] [place] [facility] [address] [id number] [place] [address]- 7223 Mar, [facility] [place] [facility] [address] [id number] [place] [address]- 4565 Mar, [facility] [place] [facility] [address] [id number] [place] [address]- 2395 Mar, [facility] [place] [facility] [address] [id number] [place] [address]- 3791 Mar, [facility] [place] [facility] [address] [id number] [place] [address]- 5874 Mar, [facility] [place] [facility] [address] [id number] [place] [address]- 2942 Mar, [facility] [place] [facility] [address] [id number] [place] [address]- 4972 Feb, [facility] [place] [facility] [address] [id number] [place] [address]- 8455 Feb, [facility] [place] [facility] [address] [id number] [place] [address]- 8288 Feb, [facility] [address] [id number] [place] [address]- 5566 Feb, [facility] [address] [id number] [place] [address]- 3046 Feb, [facility] [address] [id number] [place] [address]- 6295 Feb, 2012 [facility] [address] [id number] [place] [address]- 7939 Feb, [facility] [address] [id number] [place] [address]- 4421 Feb, [facility] [address] [id number] [place] [address]- 6284 Feb, [facility] [address] [id number] [place] [address]- 0332 Feb, [facility] [address] [id number] [place] [address]- 0394 Feb, [facility] [address] [id number] [place] [address]- 3361 Feb, [facility] [address] [facility] [id number] [place] [address]- 5349 Jan, [facility] [address] [id number] [place] [address]- 5586 Jan, [facility] [place] [facility] [address] [id number] [address]- 9081 Jan, [facility] [place] [facility] [address] [id number] [place] [address]- 3206 Jan, [facility] [place] [facility] [address] [id number] [place] [address]- 9268 Jan, [facility] [place] [facility] [address] [id number] [place] [address]- 5635 Jan, [facility] [place] [facility] [address] [id number] [place] [address]- 3669 Jan, [facility] [place] [facility] [address] [id number] [place] [address]- 5229 Jan, [facility] [place] [facility] [address] [id number] [place] [address]- 0995 Jan, [facility] [place] [facility] [address] [id number] [place] [address]- 0836 Jan, [facility] [place] [facility] [address] [id number] [place] [address]- 6888 Dec, [facility] [place] [facility] [address] [id number] [place] [address]- 2414 Dec, [facility] [place] [facility] [address] [id number] [place] [address]- 8837 Nov, [facility] [place] [facility] [address] [id number] [place] [address]- 6467 Nov, [facility] [place] [facility] [address] [id number] [place] [address]- 1223 Nov, [facility] [place] [facility] [address] [id number] [place] [address]- 6640 05 Nov, 2012 [facility] [place] [facility] [address] [id number] [place] [address]- 7614 Nov, [facility] [place] [facility] [address] [id number] [place] [address]- 7857 Oct, [facility] [place] [facility] [address] [id number] [place] [address]- 5470 Oct, [facility] [place] [facility] [address] [id number] [place] [address]- 2716 Oct, [facility] [place] [facility] [address] [id number] [place] [address]- 4275 Oct, [facility] [place] [facility] [address] [id number] [place] [address]- 0651 Oct, [facility] [address] [id number] [place] [address]- 0378 Sep, [facility] [place] [facility] [address] [id number] [place] [address]- 4178 Sep, [facility] [place] [facility] [address] [id number] [place] [address]- 9649 Sep, [facility] [place] [facility] [address] [id number] [place] [address]- 4443 Sep, [facility] [place] [facility] [address] [id number] [place] [address]- 5444 Sep, [facility] [place] [facility] [address] [id number] [place] [address]- 6234 Sep, [facility] [address] [id number] [place] [address]- 7488 Aug, [facility] [place] [facility] [address] [id number] [place] [address]- 3771 Aug, [facility] [place] [facility] [address] [id number] [place] [address]- 9112 July, [facility] [place] [facility] [address] [id number] [place] [address] July, [facility] [place] [facility] [address] [id number] [place] [address] July, [facility] [place] [facility] [address] [id number] [place] [address] Jun, [facility] [place] [facility] [address] [id number] [place] [address] 18 Jun, 2012 [facility] [place] [facility] [address] [id number] [place] [address] 16 Jun, 2012 [facility] [place] [facility] [address] [id number] [place] [address] Jun, [facility] [place] [facility] [address] [id number] [place] [address] May, [facility] [address] [id number] [place] [address] May, [facility] [place] [facility] [address] [id number] [place] [address] Apr, [facility] [place] [facility] [address] [id number] [place] [address] Apr, [facility] [place] [facility] [address] [id number] [place] [address] Apr, [facility] [place] [facility] [address] [id number] [place] [address] Apr, [facility] [place] [facility] [address] [id number] [place] [address] Apr, [facility] [place] [facility] [address] [id number] [place] [address] Apr, [facility] [address] [id number] [place] [id number] Apr, [facility] [place] [facility] [address] [id number] [place] [address] Apr, [facility] [place] [facility] [address] [id number] [place] [address] Mar, [facility] [place] [facility] [address] [id number] [place] [address] Mar, [facility] [place] [facility] [address] [id number] [place] [address] Mar, [facility] [place] [facility] [address] [id number] [place] [address] Mar, [facility] [place] [facility] [address] [id number] [place] [address] Jan, [facility] [place] [facility] [address] [id number] [place] [address] Jan, [facility] [place] [facility] [address] [id number] [place] [address] Jan, [facility] [place] [facility] [address] [id number] [place] [address] Jan, [facility] [place] [facility] [address] [id number] [place] [address] Jan, [facility] [place] [facility] [address] [id number] [id number] [address] Dec, [facility] [place] [facility] [address] [id number] [place] [address] Dec, [facility] [place] [facility] [address] [id number] [place] [address] Dec, [facility] [place] [facility] [address] [id number] [place] [address] Dec, [facility] [place] [facility] [address] [id number] [place] [address] Nov, [facility] [place] [facility] [address] [id number] [place] [address] Oct, [facility] [place] [facility] [address] [id number] [place] [address] Oct, [facility] [place] [facility] [address] [id number] [place] [address] Oct, [facility] [place] [facility] [address] [id number] [place] [address] Oct, [facility] [place] [facility] [address] [id number] [place] [address] Oct, [facility] [place] [facility] [address] [id number] [place] [address] Sep, [facility] [place] [facility] [address] [id number] [place] [address] Sep, [facility] [place] [facility] [address] [id number] [place] [address] 25 Aug, 2011 [facility] [address] [id number] [place] [address] Aug, [facility] [address] [id number] [place] [address] Aug, [facility] [address] [id number] [place] [address] Aug, [facility] [address] [id number] [place] [address] July, [facility] [address] [id number] [place] [address] Jun, [facility] [address] [id number] [place] [address] May, [facility] [address] [id number] [place] [address] May, [facility] [address] [id number] [place] [address] May, [facility] [address] [id number] [place] [address] Mar, [facility] [address] [id number] [place] [address] [address] Feb, [facility] [address] [id number] [place] [address] Feb, [facility] [address] [id number] [place] [address] Jan, [facility] [place] [facility] [address] [id number] [place] [address] Jan, [facility] [place] [facility] [address] [id number] [place] [address] 18 Jan, 2011 [facility] [address] [id number] [place] [address] Jan, [facility] [address] [id number] [address] Jan, [facility] [id number] [address] 1326 Dec, [facility] [address] [address] Dec, [facility] [id number] [place] [phone] Dec, [facility] [id number] [place] [phone] May, [facility] [id number] [place] [phone] May, [facility] [id number] [place] [phone] Apr, [facility] [id number] [place] [phone] Jan, [facility] [id number], [place] [address] Apr, IMMUNIZATIONS No Known Immunizations SOCIAL HISTORY Never Assessed REASON FOR VISIT rash on right lower back that wraps around to the abdomen. reports its painful. has had this for 3 days. [email or web address] PLAN OF CARE Activity Details Follow Up prn Reason: VITAL SIGNS Height 61 in 2016-05-27 Weight 228.8 lbs 2016-05-27 Temperature 97.3 degrees Fahrenheit 2016-05-27 Heart Rate 94 bpm 2016-05-27 Respiratory Rate 20 2016-05-27 BMI 43.23 kg/m2 2016-05-27 Blood pressure systolic 134 mmHg 2016-05-27 Blood pressure diastolic 80 mmHg 2016-05-27 MEDICATIONS Medication Instructions Dosage Frequency Start Date End Date Duration Status Acyclovir 800 MG Orally 5 times per day 1 tablet May, 10 day( s) Active Tessalon Perles 100 MG Orally Three times a day 1 capsule as needed 8h Not-Taking Symbicort 160-4.5 mcg/actuation inhale 2 puffs by Inhalation route in the morning and evening 2 times per day use until cough is resolved Apr, Not-Taking Multivitamins Orally Once a day 1 tablet 24h Active [place] 5-325 MG Orally every 6 hrs PRN 1 tablet Apr, May, 28 days Active Chlorzoxazone 500 MG Orally Three times a day 1 tablet 8h May, Jun, 30 day(s) Active EVAN-e 400 MG Active Plaquenil 200 MG TAKE ONE TABLET BY MOUTH TWICE DAILY WITH FOOD OR MILK 30 Active Fluoxetine HCl 10 MG Orally Once a day 1 capsule in the morning 24h 30 Active Gabapentin 100 mg Orally 3 times a day 1 capsule 8h May, 14 days Active Zocor 40 MG 1 tablet 24h Nov, Active PredniSONE 10 mg 1 tablet 24h Active Naproxen Sodium 500 MG Orally Twice a day 1 tablet 12h Active RESULTS No Results PROCEDURES Procedure Date Ordered Result Body Site [facility] VISIT ESTABLISHED PATIENT May 27, 2016 INSTRUCTIONS MEDICATIONS ADMINISTERED No Known Medications [...]
--- OUTSIDE RECORDS SUMMARY | 2017-12-19 08:22 | XMS REPORT | Continuity of Care Document ---
Author Author [facility] Organization [facility] Address Unknown Phone Unavailable Support Name Relationship Address Phone EULALIA PARKER Next Of Kin [place], [place] [id number] Insurance Providers Payer Name Policy Number Subscriber Name Relationship Wps Medicare KatrickyEugenio 01 Self / Same As Patient Advance Directives Directive Response Recorded Date Advance Directives N 02/24/12 10:47am Health Care Power of Human Resources Associate N 02/24/12 10:47am Organ Donor Y 02/24/12 10:47am Problems No Known Problems or Medical conditions. Family History History Response Recorded Date/Time Hx Family Cancer N 09/17/10 2:00pm Hx Family Cardiac Disorders N 09/17/10 2: 00pm Hx Family Stroke Y MOTHER, GRANDMOTHER, AUNT 09/17/10 2:00pm Hx Family Myocardial Infarction Y MOTHER 09/17/10 2:00pm Allergies, Adverse Reactions, Alerts Allergen Type Severity Reaction Last Updated No Known Drug Allergies 10/21/08 Medications Medication Dose Units Route Sig Qty Days Prednisone 20 Mg PO BID Aspirin (Aspirin Ec 81 Mg) 81 Mg PO DAILY Simvastatin 20 Mg PO HS Immunizations Name Given Type Date of Pneumonia Vaccine 12/22/08 H Date of Influenza Vaccine 12/23/11 H Response Recorded Date/Time Status not known Unknown Results No Known Relevant Diagnostic Tests, Laboratory Data and/or Discharge Summary. Procedures Procedure Code Date OTHER AND UNSPECIFIED TOTAL ABDOMINAL HYSTERECTOMY 68.49 11/28/06 OTH REMOVE BOTH OVARIES/TUBES 65.61 11/28 LOCAL DESTR OVA LES NEC 65.29 11/28/06 LAPAROSCOPIC CHOLECYSTECTOMY 51.23 INTRAOPER CHOLANGIOGRAM 87.53 11/28/06 OTHER OPEN INCISIONAL HERNIA REPAIR WITH GRAFT OR PROSTHESIS 53.61 06/14/08 RECTOCELE REPAIR 70.52 06/14/08 LEFT HEART CARDIAC CATH 37.22 08/03/08 LT HEART ANGIOCARDIOGRAM 88.53 08/03/08 CORONAR ARTERIOGR-2 CATH 88.56 08/03/08 Encounters Encounter Location Date/Time Departed Emergency Room [facility] 06/02 10:26am Discharged Inpatient [facility] 2:00pm
--- OUTSIDE RECORDS SUMMARY | 2017-12-19 08:24 | XMS REPORT | Continuity of Care Document ---
Author Author [facility] Address Unknown Phone Unavailable Allergies Active Description Code Type Severity Reaction Onset Reported/Identified Relationship to Patient Clinical Status Yes No Known Drug Allergies [id number] Drug Allergy Unknown N/A 10/21/2008 Yes Cymbalta 60 mg enteric coated capsule Drug Allergy 11/11/2011 Yes Cymbalta 60 mg enteric coated capsule Drug Allergy N/A N/A 11/11/2011 Medications There is no data. Problems Date Dx Coded Attending Type Code Diagnosis Diagnosed By 12/07/2007 840.9 Sprain/strain Shoulder/arm 12/07/2007 840.9 Sprain/strain Shoulder/arm 12/07/2007 EUGENIO LINDA DO 840.9 Sprain/strain Shoulder/arm 12/07/2007 EUGENIO LINDA DO 840.9 Sprain/strain Shoulder/arm 12/07/2007 840.9 Sprain/strain Shoulder/arm 12/07/2007 840.9 Sprain/strain Shoulder/arm 12/07/2007 840.9 Sprain/strain Shoulder/arm 12/07/2007 840.9 Sprain/strain Shoulder/arm 12/07/2007 840.9 Sprain/strain Shoulder/arm 12/07/2007 840.9 Sprain/strain Shoulder/arm 12/07/2007 EUGENIO LINDA DO 840.9 Sprain/strain Shoulder/arm 12/07/2007 EUGENIO LINDA DO 840.9 Sprain/strain Shoulder/arm 12/07/2007 EUGENIO LINDA DO 840.9 Sprain/strain Shoulder/arm 12/07/2007 HERNAN CRUZ MD 840.9 Sprain/strain Shoulder/arm 12/07/2007 EUGENIO LINDA DO 840.9 Sprain/strain Shoulder/arm 12/07/2007 EUGENIO LINDA DO 840.9 Sprain/strain Shoulder/arm 12/07/2007 WAYNE AVIONICS MANAGER, COLLEEN R 840.9 Sprain/strain Shoulder/arm 12/07/2007 LINDA DO, EUGENIO K 840.9 Sprain/strain Shoulder/arm 12/07/2007 LINDA DO, EUGENIO K 840.9 Sprain/strain Shoulder/arm 12/07/2007 LINDA DO, EUGENIO K 840.9 Sprain/strain Shoulder/arm 12/07/2007 LINDA DO, EUGENIO K 840.9 Sprain/strain Shoulder/arm 12/07/2007 LINDA DO, EUGENIO K 840.9 Sprain/strain Shoulder/arm 12/07/2007 LINDA DO, EUGENIO K 840.9 Sprain/strain Shoulder/arm 12/07/2007 COLLEEN WAYNE APRN R 840.9 Sprain/strain Shoulder/arm 12/07/2007 ONEYDA RUIZ APRN A 840.9 Sprain/strain Shoulder/arm 12/07/2007 CHRISTA GLORIA APRN T 840.9 Sprain/strain Shoulder/arm 12/07/2007 CHRISTA GLORIA APRN T 840.9 Sprain/strain Shoulder/arm 12/07/2007 COLLEEN WAYNE APRN R 840.9 Sprain/strain Shoulder/arm 12/07/2007 CHRISTA GLORIA APRN T 840.9 Sprain/strain Shoulder/arm 03/01/2008 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 03/01/2008 599.7 HEMATURIA 03/01/2008 789.00 Abdominal Pain Unspecified Site 03/01/2008 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 03/01/2008 599.7 HEMATURIA 03/01/2008 789.00 Abdominal Pain Unspecified Site 03/01/2008 LINDA DO, EUGENIO K 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 03/01/2008 LINDA DO, EUGENIO K 599.7 HEMATURIA 03/01/2008 LINDA DO, EUGENIO K 789.00 Abdominal Pain Unspecified Site 03/01/2008 LINDA DO, EUGENIO K 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 03/01/2008 LINDA DO, EUGENIO K 599.7 HEMATURIA 03/01/2008 LINDA DO, EUGENIO K 789.00 Abdominal Pain Unspecified Site 03/01/2008 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 03/01/2008 599.7 HEMATURIA 03/01/2008 789.00 Abdominal Pain Unspecified Site 03/01/2008 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 03/01/2008 599.7 HEMATURIA 03/01/2008 789.00 Abdominal Pain Unspecified Site 03/01/2008 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 03/01/2008 599.7 HEMATURIA 03/01/2008 789.00 Abdominal Pain Unspecified Site 03/01/2008 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 03/01/2008 599.7 HEMATURIA 03/01/2008 789.00 Abdominal Pain Unspecified Site 03/01/2008 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 03/01/2008 599.7 HEMATURIA 03/01/2008 789.00 Abdominal Pain Unspecified Site 03/01/2008 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 03/01/2008 599.7 HEMATURIA 03/01/2008 789.00 Abdominal Pain Unspecified Site 03/01/2008 LINDA DO, EUGENIO K 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 03/01/2008 LINDA DO, EUGENIO K 599.7 HEMATURIA 03/01/2008 LINDA DO, EUGENIO K 789.00 Abdominal Pain Unspecified Site 03/01/2008 LINDA DO, EUGENIO K 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 03/01/2008 LINDA DO, EUGENIO K 599.7 HEMATURIA 03/01/2008 LINDA DO, EUGENIO K 789.00 Abdominal Pain Unspecified Site 03/01/2008 LINDA DO, EUGENIO K 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 03/01/2008 LINDA DO, EUGENIO K 599.7 HEMATURIA 03/01/2008 LINDA DO, EUGENIO K 789.00 Abdominal Pain Unspecified Site 03/01/2008 HERNAN CRUZ MD N 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 03/01/2008 HERNAN CRUZ MD N 599.7 HEMATURIA 03/01/2008 HERNAN CRUZ MD N 789.00 Abdominal Pain Unspecified Site 03/01/2008 LINDA DO, EUGENIO K 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 03/01/2008 LINDA DO, EUGENIO K 599.7 HEMATURIA 03/01/2008 LINDA DO, EUGENIO K 789.00 Abdominal Pain Unspecified Site 03/01/2008 LINDA DO, EUGENIO K 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 03/01/2008 LINDA DO, EUGENIO K 599.7 HEMATURIA 03/01/2008 LINDA DO, EUGENIO K 789.00 Abdominal Pain Unspecified Site 03/01/2008 WAYNE AVIONICS MANAGER, COLLEEN R 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 03/01/2008 WAYNE AVIONICS MANAGER, COLLEEN R 599.7 HEMATURIA 03/01/2008 WAYNE AVIONICS MANAGER, COLLEEN R 789.00 Abdominal Pain Unspecified Site 03/01/2008 LINDA DO, EUGENIO K 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 03/01/2008 LINDA DO, EUGENIO K 599.7 HEMATURIA 03/01/2008 LINDA DO, EUGENIO K 789.00 Abdominal Pain Unspecified Site 03/01/2008 LINDA DO, EUGENIO K 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 03/01/2008 LINDA DO, EUGENIO K 599.7 HEMATURIA 03/01/2008 LINDA DO, EUGENIO K 789.00 Abdominal Pain Unspecified Site 03/01/2008 LINDA DO, EUGENIO K 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 03/01/2008 LINDA DO, EUGENIO K 599.7 HEMATURIA 03/01/2008 LINDA DO, EUGENIO K 789.00 Abdominal Pain Unspecified Site 03/01/2008 LINDA DO, EUGENIO K 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 03/01/2008 LINDA DO, EUGENIO K 599.7 HEMATURIA 03/01/2008 LINDA DO, EUGENIO K 789.00 Abdominal Pain Unspecified Site 03/01/2008 LINDA DO, EUGENIO K 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 03/01/2008 LINDA DO, EUGENIO K 599.7 HEMATURIA 03/01/2008 LINDA DO, EUGENIO K 789.00 Abdominal Pain Unspecified Site 03/01/2008 LINDA DO, EUGENIO K 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 03/01/2008 LINDA DO, EUGENIO K 599.7 HEMATURIA 03/01/2008 LINDA DO, EUGENIO K 789.00 Abdominal Pain Unspecified Site 03/01/2008 WAYNE AVIONICS MANAGER, COLLEEN R 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 03/01/2008 ROSANA AVIONICS MANAGER, COLLEEN R 599.7 HEMATURIA 03/01/2008 WAYNE AVIONICS MANAGER, COLLEEN R 789.00 Abdominal Pain Unspecified Site 03/01/2008 SARA AVIONICS MANAGER, ONEYDA A 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 03/01/2008 SARA AVIONICS MANAGER, ONEYDA A 599.7 HEMATURIA 03/01/2008 SARA AVIONICS MANAGER, ONEYDA A 789.00 Abdominal Pain Unspecified Site 03/01/2008 FAIZAN AVIONICS MANAGER, CHRISTA T 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 03/01/2008 CHRISTA GLORIA APRN T 599.7 HEMATURIA 03/01/2008 CHRISTA GLORIA APRN T 789.00 Abdominal Pain Unspecified Site 03/01/2008 CHRISTA GLOIRA APRN T 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 03/01/2008 CHRISTA GLORIA APRN T 599.7 HEMATURIA 03/01/2008 CHRISTA GLORIA APRN T 789.00 Abdominal Pain Unspecified Site 03/01/2008 MARCELO WAYNE APRNIA R 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 03/01/2008 PERRI WAYNE APRNRICIA R 599.7 HEMATURIA 03/01/2008 PERRI WAYNE APRNRICIA R 789.00 Abdominal Pain Unspecified Site 03/01/2008 CHRISTA GLORIA APRN T 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 03/01/2008 CHRISTA GLORIA APRN T 599.7 HEMATURIA 03/01/2008 CHRISTA GLORIA APRN T 789.00 Abdominal Pain Unspecified Site 08/10/2008 300.00 anxiety 08/10/2008 305.1 NICOTINE DEPENDENCE 08/10/2008 414.01 CORONARY ARTERY STENOSIS MULTI-VESSEL 08/10/2008 300.00 anxiety 08/10/2008 305.1 NICOTINE DEPENDENCE 08/10/2008 414.01 CORONARY ARTERY STENOSIS MULTI-VESSEL 08/10/2008 EUGENIO LINDA DO 300.00 anxiety 08/10/2008 EUGENIO LINDA DO 305.1 NICOTINE DEPENDENCE 08/10/2008 EUGENIO LINDA DO 414.01 CORONARY ARTERY STENOSIS MULTI-VESSEL 08/10/2008 EUGENIO LINDA DO 300.00 anxiety 08/10/2008 EUGENIO LINDA DO 305.1 NICOTINE DEPENDENCE 08/10/2008 EUGENIO LINDA DO 414.01 CORONARY ARTERY STENOSIS MULTI-VESSEL 08/10/2008 300.00 anxiety 08/10/2008 305.1 NICOTINE DEPENDENCE 08/10/2008 414.01 CORONARY ARTERY STENOSIS MULTI-VESSEL 08/10/2008 300.00 anxiety 08/10/2008 305.1 NICOTINE DEPENDENCE 08/10/2008 414.01 CORONARY ARTERY STENOSIS MULTI-VESSEL 08/10/2008 300.00 anxiety 08/10/2008 305.1 NICOTINE DEPENDENCE 08/10/2008 414.01 CORONARY ARTERY STENOSIS MULTI-VESSEL 08/10/2008 300.00 anxiety 08/10/2008 305.1 NICOTINE DEPENDENCE 08/10/2008 414.01 CORONARY ARTERY STENOSIS MULTI-VESSEL 08/10/2008 300.00 anxiety 08/10/2008 305.1 NICOTINE DEPENDENCE 08/10/2008 414.01 CORONARY ARTERY STENOSIS MULTI-VESSEL 08/10/2008 300.00 anxiety 08/10/2008 305.1 NICOTINE DEPENDENCE 08/10/2008 414.01 CORONARY ARTERY STENOSIS MULTI-VESSEL 08/10/2008 LINDA DO, EUGENIO K 300.00 anxiety 08/10/2008 LINDA DO, EUGENIO K 305.1 NICOTINE DEPENDENCE 08/10/2008 LINDA DO, EUGENIO K 414.01 CORONARY ARTERY STENOSIS MULTI-VESSEL 08/10/2008 LINDA DO, EUGENIO K 300.00 anxiety 08/10/2008 LINDA DO, EUGENIO K 305.1 NICOTINE DEPENDENCE 08/10/2008 LINDA DO, EUGENIO K 414.01 CORONARY ARTERY STENOSIS MULTI-VESSEL 08/10/2008 LINDA DO, EUGENIO K 300.00 anxiety 08/10/2008 LINDA DO, EUGENIO K 305.1 NICOTINE DEPENDENCE 08/10/2008 LINDA DO, EUGENIO K 414.01 CORONARY ARTERY STENOSIS MULTI-VESSEL 08/10/2008 ANTHONY CRYSTAL, HERNAN N 300.00 anxiety 08/10/2008 ANTHONY CRYSTAL, HERNAN N 305.1 NICOTINE DEPENDENCE 08/10/2008 ANTHONY CRYSTAL, HERNAN N 414.01 CORONARY ARTERY STENOSIS MULTI-VESSEL 08/10/2008 LINDA DO, EUGENIO K 300.00 anxiety 08/10/2008 LINDA DO, EUGENIO K 305.1 NICOTINE DEPENDENCE 08/10/2008 LINDA DO, EUGENIO K 414.01 CORONARY ARTERY STENOSIS MULTI-VESSEL 08/10/2008 LINDA DO, EUGENIO K 300.00 anxiety 08/10/2008 LINDA DO, EUGENIO K 305.1 NICOTINE DEPENDENCE 08/10/2008 LINDA DO, EUGENIO K 414.01 CORONARY ARTERY STENOSIS MULTI-VESSEL 08/10/2008 ROSANA AVIONICS MANAGER, COLLEEN R 300.00 anxiety 08/10/2008 ROSANA AVIONICS MANAGER, COLLEEN R 305.1 NICOTINE DEPENDENCE 08/10/2008 ROSANA AVIONICS MANAGER, COLLEEN R 414.01 CORONARY ARTERY STENOSIS MULTI-VESSEL 08/10/2008 LINDA DO, EUGENIO K 300.00 anxiety 08/10/2008 LINDA DO, EUGENIO K 305.1 NICOTINE DEPENDENCE 08/10/2008 LINDA DO, EUGENIO K 414.01 CORONARY ARTERY STENOSIS MULTI-VESSEL 08/10/2008 LINDA DO, EUGENIO K 300.00 anxiety 08/10/2008 LINDA DO, EUGENIO K 305.1 NICOTINE DEPENDENCE 08/10/2008 LINDA DO, EUGENIO K 414.01 CORONARY ARTERY STENOSIS MULTI-VESSEL 08/10/2008 LINDA DO, EUGENIO K 300.00 anxiety 08/10/2008 LINDA DO, EUGENIO K 305.1 NICOTINE DEPENDENCE 08/10/2008 LINDA DO, EUGENIO K 414.01 CORONARY ARTERY STENOSIS MULTI-VESSEL 08/10/2008 LINDA DO, EUGENIO K 300.00 anxiety 08/10/2008 LINDA DO, EUGENIO K 305.1 NICOTINE DEPENDENCE 08/10/2008 LINDA DO, EUGENIO K 414.01 CORONARY ARTERY STENOSIS MULTI-VESSEL 08/10/2008 LINDA DO, EUGENIO K 300.00 anxiety 08/10/2008 LINDA DO, EUGENIO K 305.1 NICOTINE DEPENDENCE 08/10/2008 LINDA DO, EUGENIO K 414.01 CORONARY ARTERY STENOSIS MULTI-VESSEL 08/10/2008 LINDA DO, EUGENIO K 300.00 anxiety 08/10/2008 LINDA DO, EUGENIO K 305.1 NICOTINE DEPENDENCE 08/10/2008 LINDA DO, EUGENIO K 414.01 CORONARY ARTERY STENOSIS MULTI-VESSEL 08/10/2008 MARCELO WAYNE APRNIA R 300.00 anxiety 08/10/2008 MARCELO WAYNE APRNIA R 305.1 NICOTINE DEPENDENCE 08/10/2008 MARCELO WAYNE APRNIA R 414.01 CORONARY ARTERY STENOSIS MULTI-VESSEL 08/10/2008 SARAONEYDA Mead APRN A 300.00 anxiety 08/10/2008 SARAONEYDA Mead APRN A 305.1 NICOTINE DEPENDENCE 08/10/2008 SARAAlyce IRVIN ONEYDA A 414.01 CORONARY ARTERY STENOSIS MULTI-VESSEL 08/10/2008 CHRISTA GLORIA APRN T 300.00 ANXIETY 08/10/2008 FAIZAN IRVIN CHRISTA T 305.1 NICOTINE DEPENDENCE 08/10/2008 CHRISTA GLORIA APRN T 414.01 CORONARY ARTERY STENOSIS MULTI-VESSEL 08/10/2008 CHRISTA GLORIA APRN T 300.00 ANXIETY 08/10/2008 CHRISTA GLORIA APRN T 305.1 NICOTINE DEPENDENCE 08/10/2008 FAIZAN IRVIN CHRISTA T 414.01 CORONARY ARTERY STENOSIS MULTI-VESSEL 08/10/2008 MARCELO WAYNE APRNIA R 300.00 ANXIETY 08/10/2008 MARCELO WAYNE APRNIA R 305.1 NICOTINE DEPENDENCE 08/10/2008 PERRI WAYNE APRNRICIA R 414.01 CORONARY ARTERY STENOSIS MULTI-VESSEL 08/10/2008 FAIZAN LINGAlyce CHRISTA T 300.00 ANXIETY 08/10/2008 FAIZAN AVIONICS MANAGERCHRISTA Mead 305.1 NICOTINE DEPENDENCE 08/10/2008 FAIZAN ILNGAlyce CHRISTA T 414.01 CORONARY ARTERY STENOSIS MULTI-VESSEL 02/13/2009 780.79 FATIGUE 02/13/2009 786.05 Shortness Of Breath 02/13/2009 780.79 FATIGUE 02/13/2009 786.05 Shortness Of Breath 02/13/2009 LINDA DO, EUGENIO K 780.79 FATIGUE 02/13/2009 LINDA DO, EUGENIO K 786.05 Shortness Of Breath 02/13/2009 LINDA DO, EUGENIO K 780.79 FATIGUE 02/13/2009 LINDA DO, EUGENIO K 786.05 Shortness Of Breath 02/13/2009 780.79 FATIGUE 02/13/2009 786.05 Shortness Of Breath 02/13/2009 780.79 FATIGUE 02/13/2009 786.05 Shortness Of Breath 02/13/2009 780.79 FATIGUE 02/13/2009 786.05 Shortness Of Breath 02/13/2009 780.79 FATIGUE 02/13/2009 786.05 Shortness Of Breath 02/13/2009 780.79 FATIGUE 02/13/2009 786.05 Shortness Of Breath 02/13/2009 780.79 FATIGUE 02/13/2009 786.05 Shortness Of Breath 02/13/2009 LINDA DO, EUGENIO K 780.79 FATIGUE 02/13/2009 LINDA DO, EUGENIO K 786.05 Shortness Of Breath 02/13/2009 LINDA DO, EUGENIO K 780.79 FATIGUE 02/13/2009 LINDA DO, EUGENIO K 786.05 Shortness Of Breath 02/13/2009 LINDA DO, EUGENIO K 780.79 FATIGUE 02/13/2009 LINDA DO, EUGENIO K 786.05 Shortness Of Breath 02/13/2009 HERNAN CRUZ MD 780.79 FATIGUE 02/13/2009 HERNAN CRUZ MD 786.05 Shortness Of Breath 02/13/2009 LINDA DO, EUGENIO K 780.79 FATIGUE 02/13/2009 LINDA DO, EUGENIO K 786.05 Shortness Of Breath 02/13/2009 LINDA DO, EUGENIO K 780.79 FATIGUE 02/13/2009 LINDA DO, EUGENIO K 786.05 Shortness Of Breath 02/13/2009 PERRI WAYNE APRNRICIA R 780.79 FATIGUE 02/13/2009 PERRI WAYNE APRNRICIA R 786.05 Shortness Of Breath 02/13/2009 LINDA DO, EUGENIO K 780.79 FATIGUE 02/13/2009 LINDA DO, EUGENIO K 786.05 Shortness Of Breath 02/13/2009 LINDA DO, EUGENIO K 780.79 FATIGUE 02/13/2009 LINDA DO, EUGENIO K 786.05 Shortness Of Breath 02/13/2009 LINDA DO, EUGENIO K 780.79 FATIGUE 02/13/2009 LINDA DO, EUGENIO K 786.05 Shortness Of Breath 02/13/2009 LINDA DO, EUGENIO K 780.79 FATIGUE 02/13/2009 LINDA DO, EUGENIO K 786.05 Shortness Of Breath 02/13/2009 LINDA DO, EUGENIO K 780.79 FATIGUE 02/13/2009 LINDA DO, EUGENIO K 786.05 Shortness Of Breath 02/13/2009 LINDA DO, EUGENIO K 780.79 FATIGUE 02/13/2009 LINDA DO, EUGENIO K 786.05 Shortness Of Breath 02/13/2009 MARCELO WAYNE APRNIA R 780.79 FATIGUE 02/13/2009 COLLEEN WAYNE APRN R 786.05 Shortness Of Breath 02/13/2009 ONEYDA RUIZ APRN A 780.79 FATIGUE 02/13/2009 BAM RUIZ APRNIDI A 786.05 Shortness Of Breath 02/13/2009 CHRISTA GLORIA APRN 780.79 FATIGUE 02/13/2009 CHRISTA GLORIA APRN 786.05 Shortness Of Breath 02/13/2009 CHRISTA GLORIA APRN T 780.79 FATIGUE 02/13/2009 CHRISTA GLORIA APRN 786.05 Shortness Of Breath 02/13/2009 COLLEEN WAYNE APRN R 780.79 FATIGUE 02/13/2009 MARCELO WAYNE APRNIA R 786.05 Shortness Of Breath 02/13/2009 CHRISTA GLORIA APRN T 780.79 FATIGUE 02/13/2009 CHRISTA GLORIA APRN 786.05 Shortness Of Breath 03/27/2009 466.0 Acute Bronchitis 03/27/2009 466.0 Acute Bronchitis 03/27/2009 LINDA DO, EUGENIO K 466.0 Acute Bronchitis 03/27/2009 LINDA DO, EUGENIO K 466.0 Acute Bronchitis 03/27/2009 466.0 Acute Bronchitis 03/27/2009 466.0 Acute Bronchitis 03/27/2009 466.0 Acute Bronchitis 03/27/2009 466.0 Acute Bronchitis 03/27/2009 466.0 Acute Bronchitis 03/27/2009 466.0 Acute Bronchitis 03/27/2009 LINDA DO, EUGENIO K 466.0 Acute Bronchitis 03/27/2009 LINDA DO, EUGENIO K 466.0 Acute Bronchitis 03/27/2009 LINDA DO, EUGENIO K 466.0 Acute Bronchitis 03/27/2009 HERNAN CRUZ MD 466.0 Acute Bronchitis 03/27/2009 LINDA DO, EUGENIO K 466.0 Acute Bronchitis 03/27/2009 LINDA DO, EUGENIO K 466.0 Acute Bronchitis 03/27/[address]NE APRN R 466.0 Acute Bronchitis 03/27/2009 LINDA DO, EUGENIO K 466.0 Acute Bronchitis 03/27/2009 LINDA DO, EUGENIO K 466.0 Acute Bronchitis 03/27/2009 LINDA DO, EUGENIO K 466.0 Acute Bronchitis 03/27/2009 LINDA DO, EUGENIO K 466.0 Acute Bronchitis 03/27/2009 LINDA DO, EUGENIO K 466.0 Acute Bronchitis 03/27/2009 LINDA DO, EUGENIO K 466.0 Acute Bronchitis 03/27/2009 COLLEEN WAYNE APRN R 466.0 Acute Bronchitis 03/27/2009 ONEYDA RUIZ APRN 466.0 Acute Bronchitis 03/27/2009 CHRISTA GLORIA APRN 466.0 Acute Bronchitis 03/27/2009 CHRISTA GLORIA APRN 466.0 Acute Bronchitis 03/27/2009 [address]LEEN [address]NE APRN R 466.0 Acute Bronchitis 03/27/2009 CHRISTA GLORIA APRN 466.0 Acute Bronchitis 05/10/2009 625.8 [place] Or Mass 05/10/2009 V72.31 Senior Principal Exam, Routine 05/10/2009 625.8 [place] 05/10/2009 V72.31 Senior Principal Exam, Routine 05/10/2009 LINDA DO, EUGENIO K 625.8 [place] 05/10/2009 LINDA DO, EUGENIO K V72.31 Senior Principal Exam, Routine 05/10/2009 LINDA DO, EUGENIO K 625.8 [place] 05/10/2009 MATTHEW LINDA DOA K V72.31 Senior Principal Exam, Routine 05/10/2009 625.8 [place] 05/10/2009 V72.31 Senior Principal Exam, Routine 05/10/2009 625.8 [place] 05/10/2009 V72.31 Senior Principal Exam, Routine 05/10/2009 625.8 [place] 05/10/2009 V72.31 Senior Principal Exam, Routine 05/10/2009 625.8 [place] 05/10/2009 V72.31 Senior Principal Exam, Routine 05/10/2009 625.8 [place] 05/10/2009 V72.31 Senior Principal Exam, Routine 05/10/2009 625.8 [place] 05/10/2009 V72.31 Senior Principal Exam, Routine 05/10/2009 MATTHEW LINDA DOA K 625.8 [place] 05/10/2009 MATTHEW LINDA DOA K V72.31 Senior Principal Exam, Routine 05/10/2009 LINDA DOMATTHEWA K 625.8 [place] 05/10/2009 MADDI PORTILLO EUGENIO K V72.31 Senior Principal Exam, Routine 05/10/2009 LINDA DO EUGENIO K 625.8 [place] 05/10/2009 LINDA DO EUGENIO K V72.31 Senior Principal Exam, Routine 05/10/2009 HERNAN CRUZ MD 625.8 [place] 05/10/2009 HERNAN CRUZ MD V72.31 Senior Principal Exam, Routine 05/10/2009 LINDA DOMATTHEWA K 625.8 [place] 05/10/2009 LINDA DO EUGENIO K V72.31 Senior Principal Exam, Routine 05/10/2009 LINDA DO EUGENIO K 625.8 [place] 05/10/2009 LINDA DO EUGENIO K V72.31 Senior Principal Exam, Routine 05/10/2009 COLLEEN WAYNE APRN R 625.8 [place] 05/10/2009 COLLEEN WAYNE APRN V72.31 Senior Principal Exam, Routine 05/10/2009 LINDA DO EUGENIO K 625.8 [place] 05/10/2009 LINDA DO EUGENIO K V72.31 Senior Principal Exam, Routine 05/10/2009 LINDA DO, EUGENIO K 625.8 [place] 05/10/2009 LINDA DO, EUGENIO K V72.31 Senior Principal Exam, Routine 05/10/2009 LINDA DO, EUGENIO K 625.8 [place] 05/10/2009 LINDA DO, EUGENIO K V72.31 Senior Principal Exam, Routine 05/10/2009 LINDA DO, EUGENIO K 625.8 [place] 05/10/2009 LINDA DO, EUGENIO K V72.31 Senior Principal Exam, Routine 05/10/2009 LINDA DO, EUGENIO K 625.8 [place] 05/10/2009 LINDA DO, EUGENIO K V72.31 Senior Principal Exam, Routine 05/10/2009 LINDA DO, EUGENIO K 625.8 [place] 05/10/2009 LINDA DO, EUGENIO K V72.31 Senior Principal Exam, Routine 05/10/2009 COLLEEN WAYNE APRN R 625.8 [place] 05/10/2009 COLLEEN WAYNE APRN R V72.31 Senior Principal Exam, Routine 05/10/2009 ONEYDA RUIZ APRN 625.8 [place] 05/10/2009 ONEYDA RUIZ APRN A V72.31 Senior Principal Exam, Routine 05/10/2009 CHRISTA GLORIA APRN 625.8 [place] 05/10/2009 CHRISTA GLORIA APRN V72.31 Senior Principal Exam, Routine 05/10/2009 CHRISTA GLORIA APRN 625.8 [place] 05/10/2009 CHRISTA GLORIA APRN V72.31 Senior Principal Exam, Routine 05/10/2009 MARC[address]O [address]NE APRNIA R 625.8 [place] 05/10/2009 MARCELO WAYNE APRNIA R V72.31 Senior Principal Exam, Routine 05/10/2009 CHRISTA GLORIA APRN 625.8 [place] 05/10/2009 CHRISTA GLORIA APRN V72.31 Senior Principal Exam, Routine 06/08/2009 788.31 URGE INCONTINENCE OF URINE 06/08/2009 788.31 URGE INCONTINENCE OF URINE 06/08/2009 LINDA DO, EUGENIO K 788.31 URGE INCONTINENCE OF URINE 06/08/2009 LINDA DO, EUGENIO K 788.31 URGE INCONTINENCE OF URINE 06/08/2009 788.31 URGE INCONTINENCE OF URINE 06/08/2009 788.31 URGE INCONTINENCE OF URINE 06/08/2009 788.31 URGE INCONTINENCE OF URINE 06/08/2009 788.31 URGE INCONTINENCE OF URINE 06/08/2009 788.31 URGE INCONTINENCE OF URINE 06/08/2009 788.31 URGE INCONTINENCE OF URINE 06/08/2009 LINDA DO, EUGENIO K 788.31 URGE INCONTINENCE OF URINE 06/08/2009 LINDA DO, EUGENIO K 788.31 URGE INCONTINENCE OF URINE 06/08/2009 LINDA DO, EUGENIO K 788.31 URGE INCONTINENCE OF URINE 06/08/2009 ANTHONY CRYSTAL, HERNAN Mead 788.31 URGE INCONTINENCE OF URINE 06/08/2009 LINDA DO, EUGENIO K 788.31 URGE INCONTINENCE OF URINE 06/08/2009 LINDA DO, EUGENIO K 788.31 URGE INCONTINENCE OF URINE 06/08/2009 [address]LE[address]NE APRN R 788.31 URGE INCONTINENCE OF URINE 06/08/2009 LINDA DO, EUGENIO K 788.31 URGE INCONTINENCE OF URINE 06/08/2009 LINDA DO, EUGENIO K 788.31 URGE INCONTINENCE OF URINE 06/08/2009 LINDA DO, EUGENIO K 788.31 URGE INCONTINENCE OF URINE 06/08/2009 LINDA DO, EUGENIO K 788.31 URGE INCONTINENCE OF URINE 06/08/2009 LINDA DO, EUGENIO K 788.31 URGE INCONTINENCE OF URINE 06/08/2009 LINDA DO, EUGENIO K 788.31 URGE INCONTINENCE OF URINE 06/08/2009 COLLEEN WAYNE APRN R 788.31 URGE INCONTINENCE OF URINE 06/08/2009 SARAONEYDA HERRERA APRN 788.31 URGE INCONTINENCE OF URINE 06/08/2009 CHRISTA GLORIA APRN 788.31 URGE INCONTINENCE OF URINE 06/08/2009 CHRISTA GLORIA APRN 788.31 URGE INCONTINENCE OF URINE 06/08/2009 COLLEEN WAYNE APRN R 788.31 URGE INCONTINENCE OF URINE 06/08/2009 CHRISTA GLORIA APRN 788.31 URGE INCONTINENCE OF URINE 12/16/2009 724.5 BACKACHE 12/16/2009 724.5 BACKACHE 12/16/2009 LINDA DO, EUGENIO K 724.5 BACKACHE 12/16/2009 LINDA DO, EUGENIO K 724.5 BACKACHE 12/16/2009 724.5 BACKACHE 12/16/2009 724.5 BACKACHE 12/16/2009 724.5 BACKACHE 12/16/2009 724.5 BACKACHE 12/16/2009 724.5 BACKACHE 12/16/2009 724.5 BACKACHE 12/16/2009 LINDA DO, EUGENIO K 724.5 BACKACHE 12/16/2009 LINDA DO, EUGENIO K 724.5 BACKACHE 12/16/2009 LINDA DO, EUGENIO K 724.5 BACKACHE 12/16/2009 ANTHONY CRYSTAL, HERNAN Mead 724.5 BACKACHE 12/16/2009 LINDA DO, EUGENIO K 724.5 BACKACHE 12/16/2009 LINDA DO, EUGENIO K 724.5 BACKACHE 12/16/2009 COLLEEN WAYNE APRN R 724.5 BACKACHE 12/16/2009 LINDA DO, EUGENIO K 724.5 BACKACHE 12/16/2009 LINDA DO, EUGENIO K 724.5 BACKACHE 12/16/2009 LINDA DO, EUGENIO K 724.5 BACKACHE 12/16/2009 LINDA DO, EUGENIO K 724.5 BACKACHE 12/16/2009 LINDA DO, EUGENIO K 724.5 BACKACHE 12/16/2009 LINDA DO, EUGENIO K 724.5 BACKACHE 12/16/2009 COLLEEN WAYNE APRN 724.5 BACKACHE 12/16/2009 ONEYDA RUIZ APRN 724.5 BACKACHE 12/16/2009 CHRISTA GLORIA APRN 724.5 BACKACHE 12/16/2009 CHRISTA GLORIA APRN 724.5 BACKACHE 12/16/2009 COLLEEN WAYNE APRN R 724.5 BACKACHE 12/16/2009 CHRISTA GLORIA APRN 724.5 BACKACHE 06/19/2010 719.40 joint pain, localized 06/19/2010 783.5 Excessive Thirst / Fluid Intake (polydypsia) 06/19/2010 788.42 Frequent, Full-bladder Emptying (polyuria) 06/19/2010 719.40 joint pain, localized 06/19/2010 783.5 Excessive Thirst / Fluid Intake (polydypsia) 06/19/2010 788.42 Frequent, Full-bladder Emptying (polyuria) 06/19/2010 MATTHEW LINDA DOA K 719.40 joint pain, localized 06/19/2010 LINDA DOMATTHEWA K 783.5 Excessive Thirst / Fluid Intake (polydypsia) 06/19/2010 MADDI PORTILLO EUGENIO K 788.42 Frequent, Full-bladder Emptying (polyuria) 06/19/2010 MADDI DO EUGENIO K 719.40 joint pain, localized 06/19/2010 MATTHEW LINDA DOA K 783.5 Excessive Thirst / Fluid Intake (polydypsia) 06/19/2010 MATTHEW LINDA DOA K 788.42 Frequent, Full-bladder Emptying (polyuria) 06/19/2010 719.40 joint pain, localized 06/19/2010 783.5 Excessive Thirst / Fluid Intake (polydypsia) 06/19/2010 788.42 Frequent, Full-bladder Emptying (polyuria) 06/19/2010 719.40 joint pain, localized 06/19/2010 783.5 Excessive Thirst / Fluid Intake (polydypsia) 06/19/2010 788.42 Frequent, Full-bladder Emptying (polyuria) 06/19/2010 719.40 joint pain, localized 06/19/2010 783.5 Excessive Thirst / Fluid Intake (polydypsia) 06/19/2010 788.42 Frequent, Full-bladder Emptying (polyuria) 06/19/2010 719.40 joint pain, localized 06/19/2010 783.5 Excessive Thirst / Fluid Intake (polydypsia) 06/19/2010 788.42 Frequent, Full-bladder Emptying (polyuria) 06/19/2010 719.40 joint pain, localized 06/19/2010 783.5 Excessive Thirst / Fluid Intake (polydypsia) 06/19/2010 788.42 Frequent, Full-bladder Emptying (polyuria) 06/19/2010 719.40 joint pain, localized 06/19/2010 783.5 Excessive Thirst / Fluid Intake (polydypsia) 06/19/2010 788.42 Frequent, Full-bladder Emptying (polyuria) 06/19/2010 LINDA DO, EUGENIO K 719.40 joint pain, localized 06/19/2010 LINDA DO, EUGENIO K 783.5 Excessive Thirst / Fluid Intake (polydypsia) 06/19/2010 LINDA DO, EUGENIO K 788.42 Frequent, Full-bladder Emptying (polyuria) 06/19/2010 LINDA DO, EUGENIO K 719.40 joint pain, localized 06/19/2010 LINDA DO, EUGENIO K 783.5 Excessive Thirst / Fluid Intake (polydypsia) 06/19/2010 LINDA DO, EUGENIO K 788.42 Frequent, Full-bladder Emptying (polyuria) 06/19/2010 LINDA DO, EUGENIO K 719.40 joint pain, localized 06/19/2010 LINDA DO, EUGENIO K 783.5 Excessive Thirst / Fluid Intake (polydypsia) 06/19/2010 LINDA DO, EUGENIO K 788.42 Frequent, Full-bladder Emptying (polyuria) 06/19/2010 HERNAN CRUZ MD N 719.40 joint pain, localized 06/19/2010 HERNAN CRUZ MD N 783.5 Excessive Thirst / Fluid Intake (polydypsia) 06/19/2010 HERNAN CRUZ MD N 788.42 Frequent, Full-bladder Emptying (polyuria) 06/19/2010 LINDA DO, EUGENIO K 719.40 joint pain, localized 06/19/2010 LINDA DO, EUGENIO K 783.5 Excessive Thirst / Fluid Intake (polydypsia) 06/19/2010 LINDA DO, EUGENIO K 788.42 Frequent, Full-bladder Emptying (polyuria) 06/19/2010 LINDA DO, EUGENIO K 719.40 joint pain, localized 06/19/2010 LINDA DO, EUGENIO K 783.5 Excessive Thirst / Fluid Intake (polydypsia) 06/19/2010 LINDA DO, EUGENIO K 788.42 Frequent, Full-bladder Emptying (polyuria) 06/19/2010 COLLEEN WAYNE APRN R 719.40 joint pain, localized 06/19/2010 COLLEEN WAYNE APRN R 783.5 Excessive Thirst / Fluid Intake (polydypsia) 06/19/2010 WAYNE AVIONICS MANAGER, COLLEEN R 788.42 Frequent, Full-bladder Emptying (polyuria) 06/19/2010 LINDA DO, EUGENIO K 719.40 joint pain, localized 06/19/2010 LINDA DO, EUGENIO K 783.5 Excessive Thirst / Fluid Intake (polydypsia) 06/19/2010 LINDA DO, EUGENIO K 788.42 Frequent, Full-bladder Emptying (polyuria) 06/19/2010 LINDA DO, EUGENIO K 719.40 joint pain, localized 06/19/2010 LINDA DO, EUGENIO K 783.5 Excessive Thirst / Fluid Intake (polydypsia) 06/19/2010 LINDA DO, EUGENIO K 788.42 Frequent, Full-bladder Emptying (polyuria) 06/19/2010 LINDA DO, EUGENIO K 719.40 joint pain, localized 06/19/2010 LINDA DO, EUGENIO K 783.5 Excessive Thirst / Fluid Intake (polydypsia) 06/19/2010 LINDA DO, EUGENIO K 788.42 Frequent, Full-bladder Emptying (polyuria) 06/19/2010 LINDA DO, EUGENIO K 719.40 joint pain, localized 06/19/2010 LINDA DO, EUGENIO K 783.5 Excessive Thirst / Fluid Intake (polydypsia) 06/19/2010 LINDA DO, EUGENIO K 788.42 Frequent, Full-bladder Emptying (polyuria) 06/19/2010 LINDA DO, EUGENIO K 719.40 joint pain, localized 06/19/2010 LINDA DO, EUGENIO K 783.5 Excessive Thirst / Fluid Intake (polydypsia) 06/19/2010 LINDA DO, EUGENIO K 788.42 Frequent, Full-bladder Emptying (polyuria) 06/19/2010 LINDA DO, EUGENIO K 719.40 joint pain, localized 06/19/2010 LINDA DO, EUGENIO K 783.5 Excessive Thirst / Fluid Intake (polydypsia) 06/19/2010 LINDA DO, EUGENIO K 788.42 Frequent, Full-bladder Emptying (polyuria) 06/19/2010 COLLEEN WAYNE APRN R 719.40 joint pain, localized 06/19/2010 MARCELO WAYNE APRNIA R 783.5 Excessive Thirst / Fluid Intake (polydypsia) 06/19/2010 COLLEEN WAYNE APRN R 788.42 Frequent, Full-bladder Emptying (polyuria) 06/19/2010 SARAONEYDA Mead APRN A 719.40 joint pain, localized 06/19/2010 SARA LINGONEYDA Mead A 783.5 Excessive Thirst / Fluid Intake (polydypsia) 06/19/2010 SARAONEYDA Mead APRN A 788.42 Frequent, Full-bladder Emptying (polyuria) 06/19/2010 CHRISTA GLORIA APRN 719.40 joint pain, localized 06/19/2010 CHRISTA GLORIA APRN 783.5 Excessive Thirst / Fluid Intake (polydypsia) 06/19/2010 CHRISTA GLORIA APRN 788.42 Frequent, Full-bladder Emptying (polyuria) 06/19/2010 CHRISTA GLORIA APRN 719.40 joint pain, localized 06/19/2010 CHRISTA GLORIA APRN 783.5 Excessive Thirst / Fluid Intake (polydypsia) 06/19/2010 CHRISTA GLORIA APRN 788.42 Frequent, Full-bladder Emptying (polyuria) 06/19/2010 COLLEEN WAYNE APRN R 719.40 joint pain, localized 06/19/2010 COLLEEN WANYE APRN R 783.5 Excessive Thirst / Fluid Intake (polydypsia) 06/19/2010 COLLEEN WAYNE APRN R 788.42 Frequent, Full-bladder Emptying (polyuria) 06/19/2010 CHRISTA GLORIA APRN 719.40 joint pain, localized 06/19/2010 CHRISTA GLORIA APRN 783.5 Excessive Thirst / Fluid Intake (polydypsia) 06/19/2010 CHRISTA GLORIA APRN 788.42 Frequent, Full-bladder Emptying (polyuria) 09/25/2010 272.4 HYPERLIPIDEMIA 09/25/2010 272.4 HYPERLIPIDEMIA 09/25/2010 LINDA DO, EUGENIO K 272.4 HYPERLIPIDEMIA 09/25/2010 LINDA DO, EUGENIO K 272.4 HYPERLIPIDEMIA 09/25/2010 272.4 HYPERLIPIDEMIA 09/25/2010 272.4 HYPERLIPIDEMIA 09/25/2010 272.4 HYPERLIPIDEMIA 09/25/2010 272.4 HYPERLIPIDEMIA 09/25/2010 272.4 HYPERLIPIDEMIA 09/25/2010 272.4 HYPERLIPIDEMIA 09/25/2010 LINDA DO, EUGENIO K 272.4 HYPERLIPIDEMIA 09/25/2010 LINDA DO, EUGENIO K 272.4 HYPERLIPIDEMIA 09/25/2010 LINDA DO, EUGENIO K 272.4 HYPERLIPIDEMIA 09/25/2010 HERNAN CRUZ MD 272.4 HYPERLIPIDEMIA 09/25/2010 LINDA DO, EUGENIO K 272.4 HYPERLIPIDEMIA 09/25/2010 LINDA DO, EUGENIO K 272.4 HYPERLIPIDEMIA 09/25/2010 WAYNE AVIONICS MANAGER, COLLEEN R 272.4 HYPERLIPIDEMIA 09/25/2010 LINDA DO, EUGENIO K 272.4 HYPERLIPIDEMIA 09/25/2010 LINDA DO, EUGENIO K 272.4 HYPERLIPIDEMIA 09/25/2010 LINDA DO, EUGENIO K 272.4 HYPERLIPIDEMIA 09/25/2010 LINDA DO, EUGENIO K 272.4 HYPERLIPIDEMIA 09/25/2010 LINDA DO, EUGENIO K 272.4 HYPERLIPIDEMIA 09/25/2010 LINDA DO, EUGENIO K 272.4 HYPERLIPIDEMIA 09/25/2010 WAYNE AVIONICS MANAGER, COLLEEN R 272.4 HYPERLIPIDEMIA 09/25/2010 SARA AVIONICS MANAGER, ONEYDA A 272.4 HYPERLIPIDEMIA 09/25/2010 FAIZAN AVIONICS MANAGER, CHRISTA T 272.4 HYPERLIPIDEMIA 09/25/2010 FAIZAN AVIONICS MANAGER CHRISTA T 272.4 HYPERLIPIDEMIA 09/25/2010 WAYNE AVIONICS MANAGER, COLLEEN R 272.4 HYPERLIPIDEMIA 09/25/2010 FAIZAN AVIONICS MANAGER CHRISTA T 272.4 HYPERLIPIDEMIA 10/15/2010 710.0 Systemic Lupus Erythematosus 10/15/2010 710.0 Systemic Lupus Erythematosus 10/15/2010 LINDA DO, EUGENIO K 710.0 Systemic Lupus Erythematosus 10/15/2010 LINDA DO, EUGENIO K 710.0 Systemic Lupus Erythematosus 10/15/2010 710.0 Systemic Lupus Erythematosus 10/15/2010 710.0 Systemic Lupus Erythematosus 10/15/2010 710.0 Systemic Lupus Erythematosus 10/15/2010 710.0 Systemic Lupus Erythematosus 10/15/2010 710.0 Systemic Lupus Erythematosus 10/15/2010 710.0 Systemic Lupus Erythematosus 10/15/2010 LINDA DO, EUGENIO K 710.0 Systemic Lupus Erythematosus 10/15/2010 LINDA DO, EUGENIO K 710.0 Systemic Lupus Erythematosus 10/15/2010 LINDA DO, EUGENIO K 710.0 Systemic Lupus Erythematosus 10/15/2010 HERNAN CRUZ MD 710.0 Systemic Lupus Erythematosus 10/15/2010 LINDA DO, EUGENIO K 710.0 Systemic Lupus Erythematosus 10/15/2010 LINDA DO, EUGENIO K 710.0 Systemic Lupus Erythematosus 10/15/2010 ROSANA AVIONICS MANAGERMARCELO MeadIA R 710.0 Systemic Lupus Erythematosus 10/15/2010 LINDA DO, EUGENIO K 710.0 Systemic Lupus Erythematosus 10/15/2010 LINDA DO, EUGENIO K 710.0 Systemic Lupus Erythematosus 10/15/2010 LINDA DO, EUGENIO K 710.0 Systemic Lupus Erythematosus 10/15/2010 LINDA DO, EUGENIO K 710.0 Systemic Lupus Erythematosus 10/15/2010 LINDA DO, EUGENIO K 710.0 Systemic Lupus Erythematosus 10/15/2010 LINDA DO, EUGENIO K 710.0 Systemic Lupus Erythematosus 10/15/2010 ROSANA AVIONICS MANAGERCOLLEEN R 710.0 Systemic Lupus Erythematosus 10/15/2010 SARA IRVIN, ONEYDA Eden 710.0 Systemic Lupus Erythematosus 10/15/2010 CHRISTA GLORIA APRN T 710.0 Systemic Lupus Erythematosus 10/15/2010 CHRISTA GLORIA APRN T 710.0 Systemic Lupus Erythematosus 10/15/2010 COLLEEN WAYNE APRN R 710.0 Systemic Lupus Erythematosus 10/15/2010 FAIZAN IRVIN CHRISTA T 710.0 Systemic Lupus Erythematosus 02/18/2011 268.9 VITAMIN D DEFICIENCY 02/18/2011 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 02/18/2011 V58.69 taking high- risk medication 02/18/2011 268.9 VITAMIN D DEFICIENCY 02/18/2011 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 02/18/2011 V58.69 taking high- risk medication 02/18/2011 LINDA DO, EUGENIO K 268.9 VITAMIN D DEFICIENCY 02/18/2011 LINDA DO, EUGENIO K 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 02/18/2011 LINDA DO, EUGENIO K V58.69 taking high-risk medication 02/18/2011 LINDA DO, EUGENIO K 268.9 VITAMIN D DEFICIENCY 02/18/2011 LINDA DO, EUGENIO K 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 02/18/2011 LINDA DO, EUGENIO K V58.69 taking high-risk medication 02/18/2011 268.9 VITAMIN D DEFICIENCY 02/18/2011 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 02/18/2011 V58.69 taking high- risk medication 02/18/2011 268.9 VITAMIN D DEFICIENCY 02/18/2011 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 02/18/2011 V58.69 taking high- risk medication 02/18/2011 268.9 VITAMIN D DEFICIENCY 02/18/2011 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 02/18/2011 V58.69 taking high- risk medication 02/18/2011 268.9 VITAMIN D DEFICIENCY 02/18/2011 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 02/18/2011 V58.69 taking high- risk medication 02/18/2011 268.9 VITAMIN D DEFICIENCY 02/18/2011 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9 VITAMIN D DEFICIENCY 02/18/2011 LINDA DO, EUGENIO K 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 02/18/2011 LINDA DO, EUGENIO K V58.69 taking high-risk medication 02/18/2011 HERNAN CRUZ MD 268.9 VITAMIN D DEFICIENCY 02/18/2011 HERNAN CRUZ MD 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 02/18/2011 HERNAN CRUZ MD V58.69 taking high-risk medication 02/18/2011 LINDA DO, EUGENIO K 268.9 VITAMIN D DEFICIENCY 02/18/2011 LINDA DO, EUGENIO K 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 02/18/2011 LINDA DO, EUGENIO K V58.69 taking high-risk medication 02/18/2011 LINDA DO, EUGENIO K 268.9 VITAMIN D DEFICIENCY 02/18/2011 LINDA DO, EUGENIO K 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 02/18/2011 LINDA DO, EUGENIO K V58.69 taking high-risk medication 02/18/2011 WAYNE AVIONICS MANAGER, COLLEEN R 268.9 VITAMIN D DEFICIENCY 02/18/2011 WAYNE AVIONICS MANAGER, COLLEEN R 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 02/18/2011 WAYNE AVIONICS MANAGER, COLLEEN R V58.69 taking high-risk medication 02/18/2011 LINDA DO, EUGENIO K 268.9 VITAMIN D DEFICIENCY 02/18/2011 LINDA DO, EUGENIO K 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 02/18/2011 LINDA DO, EUGENIO K V58.69 taking high-risk medication 02/18/2011 LINDA DO, EUGENIO K 268.9 VITAMIN D DEFICIENCY 02/18/2011 LINDA DO, EUGENIO K 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 02/18/2011 LINDA DO, EUGENIO K V58.69 taking high-risk medication 02/18/2011 LINDA DO, EUGENIO K 268.9 VITAMIN D DEFICIENCY 02/18/2011 LINDA DO, EUGENIO K 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 02/18/2011 LINDA DO, EUGENIO K V58.69 taking high-risk medication 02/18/2011 LINDA DO, EUGENIO K 268.9 VITAMIN D DEFICIENCY 02/18/2011 LINDA DO, EUGENIO K 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 02/18/2011 LINDA DO, EUGENIO K V58.69 taking high-risk medication 02/18/2011 LINDA DO, EUGENIO K 268.9 VITAMIN D DEFICIENCY 02/18/2011 LINDA DO, EUGENIO K 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 02/18/2011 LINDA DO, EUGENIO K V58.69 taking high-risk medication 02/18/2011 LINDA DO, EUGENIO K 268.9 VITAMIN D DEFICIENCY 02/18/2011 LINDA DO, EUGENIO K 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 02/18/2011 LINDA DO, EUGENIO K V58.69 taking high-risk medication 02/18/2011 WAYNE AVIONICS MANAGER, COLLEEN R 268.9 VITAMIN D DEFICIENCY 02/18/2011 ROSANA AVIONICS MANAGER, COLLEEN R 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 02/18/2011 ROSANA AVIONICS MANAGER, COLLEEN R V58.69 taking high-risk medication 02/18/2011 SARA AVIONICS MANAGER, ONEYDA A 268.9 VITAMIN D DEFICIENCY 02/18/2011 SARA AVIONICS MANAGER, ONEYDA A 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 02/18/2011 SARA AVIONICS MANAGER, ONEYDA A V58.69 taking high-risk medication 02/18/2011 CHRISTA GLORIA APRN 268.9 VITAMIN D DEFICIENCY 02/18/2011 CHRISTA GLORIA APRN 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 02/18/2011 CHRISTA GLORIA APRN V58.69 taking high-risk medication 02/18/2011 CHRISTA GLORIA APRN 268.9 VITAMIN D DEFICIENCY 02/18/2011 CRHISTA GLORIA APRN T 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 02/18/2011 CHRISTA GLORIA APRN V58.69 taking high-risk medication 02/18/2011 COLLEEN WAYNE APRN R 268.9 VITAMIN D DEFICIENCY 02/18/2011 COLLEEN WAYNE APRN R 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 02/18/2011 COLLEEN WAYNE APRN R V58.69 taking high-risk medication 02/18/2011 CHRISTA GLORIA APRN 268.9 VITAMIN D DEFICIENCY 02/18/2011 CHRISTA GLORIA APRN 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 02/18/2011 CHRISTA GLORIA APRN V58.69 taking high-risk medication 09/10/2011 V76.10 BREAST CANCER SCREENING 09/10/2011 V76.47 VAGINAL PAP SMEAR SCREENING 09/10/2011 V76.10 BREAST CANCER SCREENING 09/10/2011 V76.47 VAGINAL PAP SMEAR SCREENING 09/10/2011 EUGENIO LINDA DO V76.10 BREAST CANCER SCREENING 09/10/2011 EUGENIO LINDA DO V76.47 VAGINAL PAP SMEAR SCREENING 09/10/2011 EUGENIO LINDA DO V76.10 BREAST CANCER SCREENING 09/10/2011 EUGENIO LINDA DO V76.47 VAGINAL PAP SMEAR SCREENING 09/10/2011 V76.10 BREAST CANCER SCREENING 09/10/2011 V76.47 VAGINAL PAP SMEAR SCREENING 09/10/2011 V76.10 BREAST CANCER SCREENING 09/10/2011 V76.47 VAGINAL PAP SMEAR SCREENING 09/10/2011 V76.10 BREAST CANCER SCREENING 09/10/2011 V76.47 VAGINAL PAP SMEAR SCREENING 09/10/2011 V76.10 BREAST CANCER SCREENING 09/10/2011 V76.47 VAGINAL PAP SMEAR SCREENING 09/10/2011 V76.10 BREAST CANCER SCREENING 09/10/2011 V76.47 VAGINAL PAP SMEAR SCREENING 09/10/2011 V76.10 BREAST CANCER SCREENING 09/10/2011 V76.47 VAGINAL PAP SMEAR SCREENING 09/10/2011 LINDA DO, EUGENIO K V76.10 BREAST CANCER SCREENING 09/10/2011 LINDA DO, EUGENIO K V76.47 VAGINAL PAP SMEAR SCREENING 09/10/2011 LINDA DO, EUGENIO K V76.10 BREAST CANCER SCREENING 09/10/2011 LINDA DO, EUGENIO K V76.47 VAGINAL PAP SMEAR SCREENING 09/10/2011 LINDA DO, EUGENIO K V76.10 BREAST CANCER SCREENING 09/10/2011 LINDA DO, EUGENIO K V76.47 VAGINAL PAP SMEAR SCREENING 09/10/2011 HERNAN CRUZ MD V76.10 BREAST CANCER SCREENING 09/10/2011 HERNAN CRUZ MD V76.47 VAGINAL PAP SMEAR SCREENING 09/10/2011 LINDA DO, EUGENIO K V76.10 BREAST CANCER SCREENING 09/10/2011 LINDA DO, EUGENIO K V76.47 VAGINAL PAP SMEAR SCREENING 09/10/2011 LINDA DO, EUGENIO K V76.10 BREAST CANCER SCREENING 09/10/2011 LINDA DO, EUGENIO K V76.47 VAGINAL PAP SMEAR SCREENING 09/10/2011 ROSANA AVIONICS MANAGER, COLLEEN R V76.10 BREAST CANCER SCREENING 09/10/2011 ROSANA AVIONICS MANAGER, COLLEEN R V76.47 VAGINAL PAP SMEAR SCREENING 09/10/2011 LINDA DO, EUGENIO K V76.10 BREAST CANCER SCREENING 09/10/2011 LINDA DO, EUGENIO K V76.47 VAGINAL PAP SMEAR SCREENING 09/10/2011 LINDA DO, EUGENIO K V76.10 BREAST CANCER SCREENING 09/10/2011 LINDA DO, EUGENIO K V76.47 VAGINAL PAP SMEAR SCREENING 09/10/2011 LINDA DO, EUGENIO K V76.10 BREAST CANCER SCREENING 09/10/2011 LINDA DO, EUGENIO K V76.47 VAGINAL PAP SMEAR SCREENING 09/10/2011 LINDA DO, EUGENIO K V76.10 BREAST CANCER SCREENING 09/10/2011 LINDA DO, EUGENIO K V76.47 VAGINAL PAP SMEAR SCREENING 09/10/2011 LINDA DO, EUGENIO K V76.10 BREAST CANCER SCREENING 09/10/2011 LINDA DO, EUGENIO K V76.47 VAGINAL PAP SMEAR SCREENING 09/10/2011 LINDA DO, EUGENIO K V76.10 BREAST CANCER SCREENING 09/10/2011 LINDA DO, EUGENIO K V76.47 VAGINAL PAP SMEAR SCREENING 09/10/2011 COLLEEN WAYNE APRN R V76.10 BREAST CANCER SCREENING 09/10/2011 COLLEEN WAYNE APRN R V76.47 VAGINAL PAP SMEAR SCREENING 09/10/2011 ONEYDA RUIZ APRN A V76.10 BREAST CANCER SCREENING 09/10/2011 ONEYDA RUIZ APRN A V76.47 VAGINAL PAP SMEAR SCREENING 09/10/2011 CHRISTA GLORIA APRN T V76.10 BREAST CANCER SCREENING 09/10/2011 CHRISTA GLORIA APRN T V76.47 VAGINAL PAP SMEAR SCREENING 09/10/2011 FAIZAN IRVIN CHRISTA T V76.10 BREAST CANCER SCREENING 09/10/2011 FAIZAN IRVIN CHRISTA T V76.47 VAGINAL PAP SMEAR SCREENING 09/10/2011 COLLEEN WAYNE APRN R V76.10 BREAST CANCER SCREENING 09/10/2011 COLLEEN WAYNE APRN R V76.47 VAGINAL PAP SMEAR SCREENING 09/10/2011 CHRISTA GLORIA APRN T V76.10 BREAST CANCER SCREENING 09/10/2011 CHRISTA GLORIA APRN T V76.47 VAGINAL PAP SMEAR SCREENING 11/11/2011 070.54 HEPATITIS C CHRONIC 11/11/2011 702.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 11/11/2011 070.54 HEPATITIS C CHRONIC 11/11/2011 702.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 11/11/2011 EUGENIO LINDA DO 070.54 HEPATITIS C CHRONIC 11/11/2011 EUGENIO LINDA DO 702.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 11/11/2011 EUGENIO LINDA DO 070.54 HEPATITIS C CHRONIC 11/11/2011 EUGENIO LINDA DO 702.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 11/11/2011 070.54 HEPATITIS C CHRONIC 11/11/2011 702.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 11/11/2011 070.54 HEPATITIS C CHRONIC 11/11/2011 702.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 11/11/2011 070.54 HEPATITIS C CHRONIC 11/11/2011 702.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 11/11/2011 070.54 HEPATITIS C CHRONIC 11/11/2011 702.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 11/11/2011 070.54 HEPATITIS C CHRONIC 11/11/2011 702.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 11/11/2011 070.54 HEPATITIS C CHRONIC 11/11/2011 702.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 11/11/2011 LINDA DO, EUGENIO K 070.54 HEPATITIS C CHRONIC 11/11/2011 LINDA DO, EUGENIO K 702.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 11/11/2011 LINDA DO, EUGENIO K 070.54 HEPATITIS C CHRONIC 11/11/2011 LINDA DO, EUGENIO K 702.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 11/11/2011 LINDA DO, EUGENIO K 070.54 HEPATITIS C CHRONIC 11/11/2011 LINDA DO, EUGENIO K 702.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 11/11/2011 ANTHONY CRYSTAL, HERNAN N 070.54 HEPATITIS C CHRONIC 11/11/2011 ANTHONY CRYSTAL, HERNAN N 702.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 11/11/2011 LINDA DO, EUGENIO K 070.54 HEPATITIS C CHRONIC 11/11/2011 LINDA DO, EUGENIO K 702.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 11/11/2011 LINDA DO, EUGENIO K 070.54 HEPATITIS C CHRONIC 11/11/2011 LINDA DO, EUGENIO K 702.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 11/11/2011 MARCELO WAYNE APRNIA R 070.54 HEPATITIS C CHRONIC 11/11/2011 MARCELO WAYNE APRNIA R 702.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 11/11/2011 LINDA DO, EUGENIO K 070.54 HEPATITIS C CHRONIC 11/11/2011 LINDA DO, EUGENIO K 702.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 11/11/2011 LINDA DO, EUGENIO K 070.54 HEPATITIS C CHRONIC 11/11/2011 LINDA DO, EUGENIO K 702.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 11/11/2011 LINDA DO, EUGENIO K 070.54 HEPATITIS C CHRONIC 11/11/2011 LINDA DO, EUGENIO K 702.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 11/11/2011 LINDA DO, EUGENIO K 070.54 HEPATITIS C CHRONIC 11/11/2011 LINDA DO, EUGENIO K 702.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 11/11/2011 LINDA DO, EUGENIO K 070.54 HEPATITIS C CHRONIC 11/11/2011 LINDA DO, EUGENIO K 702.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 11/11/2011 EUGENIO LINDA DO 070.54 HEPATITIS C CHRONIC 11/11/2011 EUGENIO LINDA DO 702.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 11/11/2011 COLLEEN WAYNE APRN R 070.54 HEPATITIS C CHRONIC 11/11/2011 COLLEEN WAYNE APRN R 702.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 11/11/2011 ONEYDA RUIZ APRN A 070.54 HEPATITIS C CHRONIC 11/11/2011 ONEYDA RUIZ APRN A 702.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 11/11/2011 CHRISTA GLORIA APRN T 070.54 HEPATITIS C CHRONIC 11/11/2011 CHRISTA GLORIA APRN T 702.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 11/11/2011 CHRISTA GLORIA APRN T 070.54 HEPATITIS C CHRONIC 11/11/2011 CHRISTA GLORIA APRN T 702.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 11/11/2011 COLLEEN WAYNE APRN R 070.54 HEPATITIS C CHRONIC 11/11/2011 COLLEEN WAYNE APRN R 702.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 11/11/2011 CHRISTA GLORIA APRN T 070.54 HEPATITIS C CHRONIC 11/11/2011 CHRISTA GLORIA APRN T 702.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 01/17/2012 478.19 OTHER DISEASES OF NASAL CAVITY AND SINUSES 01/17/2012 784.91 POSTNASAL DRIP 01/17/2012 478.19 OTHER DISEASES OF NASAL CAVITY AND SINUSES 01/17/2012 784.91 POSTNASAL DRIP 01/17/2012 EUGENIO LINDA DO 478.19 Other Diseases Of Nasal Cavity And Sinuses 01/17/2012 EUGENIO LINDA DO 784.91 Postnasal Drip 01/17/2012 EUGENIO LINDA DO 478.19 Other Diseases Of Nasal Cavity And Sinuses 01/17/2012 EUGENIO LINDA DO 784.91 Postnasal Drip 01/17/2012 478.19 Other Diseases Of Nasal Cavity And Sinuses 01/17/2012 784.91 Postnasal Drip 01/17/2012 478.19 Other Diseases Of Nasal Cavity And Sinuses 01/17/2012 784.91 Postnasal Drip 01/17/2012 478.19 Other Diseases Of Nasal Cavity And Sinuses 01/17/2012 784.91 Postnasal Drip 01/17/2012 478.19 Other Diseases Of Nasal Cavity And Sinuses 01/17/2012 784.91 Postnasal Drip 01/17/2012 478.19 Other Diseases Of Nasal Cavity And Sinuses 01/17/2012 784.91 Postnasal Drip 01/17/2012 478.19 Other Diseases Of Nasal Cavity And Sinuses 01/17/2012 784.91 Postnasal Drip 01/17/2012 EUGENIO LINDA DO 478.19 Other Diseases Of Nasal Cavity And Sinuses 01/17/2012 LINDA DO EUGENIO K 784.91 Postnasal Drip 01/17/2012 EUGENIO LINDA DO 478.19 OTHER DISEASES OF NASAL CAVITY AND SINUSES 01/17/2012 MADDI PORTILLO EUGENIO K 784.91 POSTNASAL DRIP 01/17/2012 EUGENIO LINDA DO 478.19 Other Diseases Of Nasal Cavity And Sinuses 01/17/2012 MATTHEW LINDA DOA K 784.91 Postnasal Drip 01/17/2012 ANTHONY CRYSTAL, HERNAN Mead 478.19 Other Diseases Of Nasal Cavity And Sinuses 01/17/2012 HERNAN CRUZ MD 784.91 Postnasal Drip 01/17/2012 EUGENIO LINDA DO 478.19 Other Diseases Of Nasal Cavity And Sinuses 01/17/2012 MATTHEW LINDA DOA K 784.91 Postnasal Drip 01/17/2012 EUGENIO LINDA DO 478.19 Other Diseases Of Nasal Cavity And Sinuses 01/17/2012 MADDI PORTILLO EUGENIO K 784.91 Postnasal Drip 01/17/2012 COLLEEN WAYNE APRN R 478.19 Other Diseases Of Nasal Cavity And Sinuses 01/17/2012 COLLEEN WAYNE APRN R 784.91 Postnasal Drip 01/17/2012 EUGENIO LINDA DO K 478.19 Other Diseases Of Nasal Cavity And Sinuses 01/17/2012 MADDI PORTILLO EUGENIO K 784.91 Postnasal Drip 01/17/2012 MATTHEW LINDA DOA K 478.19 Other Diseases Of Nasal Cavity And Sinuses 01/17/2012 LINDA DO EUGENIO K 784.91 Postnasal Drip 01/17/2012 EUGENIO LINDA DO 478.19 Other Diseases Of Nasal Cavity And Sinuses 01/17/2012 MATTHEW LINDA DOA K 784.91 Postnasal Drip 01/17/2012 EUGENIO LINDA DO K 478.19 Other Diseases Of Nasal Cavity And Sinuses 01/17/2012 LINDA MATTHEW PORTILLOA K 784.91 Postnasal Drip 01/17/2012 LINDA MATTHEW PORTILLOA K 478.19 Other Diseases Of Nasal Cavity And Sinuses 01/17/2012 LINDA MATTHEW PORTILLOA K 784.91 Postnasal Drip 01/17/2012 EUGENIO LINDA DO K 478.19 Other Diseases Of Nasal Cavity And Sinuses 01/17/2012 LINDA MATTHEW PORTILLOA K 784.91 Postnasal Drip 01/17/2012 COLLEEN WAYNE APRN 478.19 Other Diseases Of Nasal Cavity And Sinuses 01/17/2012 COLLEEN WAYNE APRN R 784.91 Postnasal Drip 01/17/2012 ONEYDA RUIZ APRN 478.19 Other Diseases Of Nasal Cavity And Sinuses 01/17/2012 ONEYDA RUIZ APRN 784.91 Postnasal Drip 01/17/2012 CHRISTA GLORIA APRN 478.19 Other Diseases Of Nasal Cavity And Sinuses 01/17/2012 CHRISTA GLORIA APRN 784.91 Postnasal Drip 01/17/2012 CHRISTA GLORIA APRN 478.19 Other Diseases Of Nasal Cavity And Sinuses 01/17/2012 CHRISTA GLORIA APRN 784.91 Postnasal Drip 01/17/2012 COLLEEN WAYNE APRN 478.19 Other Diseases Of Nasal Cavity And Sinuses 01/17/2012 COLLEEN WAYNE APRN R 784.91 Postnasal Drip 01/17/2012 CHRISTA GLORIA APRN 478.19 Other Diseases Of Nasal Cavity And Sinuses 01/17/2012 CHRISTA GLORIA APRN 784.91 Postnasal Drip 02/24/2012 Ot 786.59 04/01/2012 786.2 COUGH 04/01/2012 EUGENIO LINDA DO 786.2 Cough 04/01/2012 EUGENIO LINDA DO K 786.2 Cough 04/01/2012 786.2 Cough 04/01/2012 786.2 Cough 04/01/2012 786.2 Cough 04/01/2012 786.2 Cough 04/01/2012 786.2 Cough 04/01/2012 786.2 Cough 04/01/2012 LINDA DO, EUGENIO K 786.2 Cough 04/01/2012 LINDA DO, EUGENIO K 786.2 Cough 04/01/2012 HERNAN CRUZ MD 786.2 Cough 04/01/2012 LINDA DO, EUGENIO K 786.2 Cough 04/01/2012 LINDA DO, EUGENIO K 786.2 Cough 04/01/2012 WAYNE AVIONICS MANAGER, COLLEEN R 786.2 Cough 04/01/2012 LINDA DO, EUGENIO K 786.2 Cough 04/01/2012 LINDA DO, EUGENIO K 786.2 Cough 04/01/2012 LINDA DO, EUGENIO K 786.2 Cough 04/01/2012 LINDA DO, EUGENIO K 786.2 Cough 04/01/2012 LINDA DO, EUGENIO K 786.2 Cough 04/01/2012 LINDA DO, EUGENIO K 786.2 Cough 04/01/2012 ROSANA AVIONICS MANAGER, COLLEEN R 786.2 Cough 04/01/2012 SARA AVIONICS MANAGER, ONEYDA A 786.2 Cough 04/01/2012 FAIZAN AVIONICS MANAGER, CHRISTA T 786.2 Cough 04/01/2012 FAIZAN AVIONICS MANAGER, CHRISTA T 786.2 Cough 04/01/2012 ROSANA AVIONICS MANAGER, COLLEEN R 786.2 Cough 04/01/2012 FAIZAN AVIONICS MANAGER, CHRISTA T 786.2 Cough 04/13/2012 LINDA DO, EUGENIO K V65.42 COUNSELING - SMOKING CESSATION 04/13/2012 LINDA DO, EUGENIO K V65.42 COUNSELING - SMOKING CESSATION 04/13/2012 V65.42 COUNSELING - SMOKING CESSATION 04/13/2012 V65.42 COUNSELING - SMOKING CESSATION 04/13/2012 V65.42 COUNSELING - SMOKING CESSATION 04/13/2012 V65.42 COUNSELING - SMOKING CESSATION 04/13/2012 V65.42 COUNSELING - SMOKING CESSATION 04/13/2012 V65.42 COUNSELING - SMOKING CESSATION 04/13/2012 LINDA DO, EUGENIO K V65.42 COUNSELING - SMOKING CESSATION 04/13/2012 LINDA DO, EUGENIO K V65.42 COUNSELING - SMOKING CESSATION 04/13/2012 HERNAN CRUZ MD V65.42 COUNSELING - SMOKING CESSATION 04/13/2012 LINDA DO, EUGENIO K V65.42 COUNSELING - SMOKING CESSATION 04/13/2012 LINDA DO, EUGENIO K V65.42 COUNSELING - SMOKING CESSATION 04/13/2012 COLLEEN WAYNE APRN R V65.42 COUNSELING - SMOKING CESSATION 04/13/2012 LINDA DO, EUGENIO K V65.42 COUNSELING - SMOKING CESSATION 04/13/2012 LINDA DO, EUGENIO K V65.42 COUNSELING - SMOKING CESSATION 04/13/2012 LINDA DO, EUGENIO K V65.42 COUNSELING - SMOKING CESSATION 04/13/2012 LINDA DO, EUGENIO K V65.42 COUNSELING - SMOKING CESSATION 04/13/2012 LINDA DO, EUGENIO K V65.42 COUNSELING - SMOKING CESSATION 04/13/2012 LINDA DO, EUGENIO K V65.42 COUNSELING - SMOKING CESSATION 04/13/2012 COLLEEN WAYNE APRN R V65.42 COUNSELING - SMOKING CESSATION 04/13/2012 ONEYDA RUIZ APRN V65.42 COUNSELING - SMOKING CESSATION 04/13/2012 CHRISTA GLORIA APRN V65.42 COUNSELING - SMOKING CESSATION 04/13/2012 CHRISTA GLORIA APRN V65.42 COUNSELING - SMOKING CESSATION 04/13/2012 COLLEEN WAYNE APRN R V65.42 COUNSELING - SMOKING CESSATION 04/13/2012 CHRISTA GLORIA APRN T V65.42 COUNSELING - SMOKING CESSATION 05/13/2012 LINDA DO, EUGENIO K 593.9 RENAL INSUFFICIENCY 05/13/2012 593.9 RENAL INSUFFICIENCY 05/13/2012 593.9 RENAL INSUFFICIENCY 05/13/2012 593.9 RENAL INSUFFICIENCY 05/13/2012 593.9 RENAL INSUFFICIENCY 05/13/2012 593.9 RENAL INSUFFICIENCY 05/13/2012 593.9 RENAL INSUFFICIENCY 05/13/2012 LINDA DO, EUGENIO K 593.9 RENAL INSUFFICIENCY 05/13/2012 LINDA DO, EUGENIO K 593.9 RENAL INSUFFICIENCY 05/13/2012 HERNAN CRUZ MD 593.9 RENAL INSUFFICIENCY 05/13/2012 LINDA DO, EUGENIO K 593.9 RENAL INSUFFICIENCY 05/13/2012 LINDA DO, EUGENIO K 593.9 RENAL INSUFFICIENCY 05/13/2012 COLLEEN WAYNE APRN R 593.9 RENAL INSUFFICIENCY 05/13/2012 LINDA DO, EUGENIO K 593.9 RENAL INSUFFICIENCY 05/13/2012 LINDA DO, EUGENIO K 593.9 RENAL INSUFFICIENCY 05/13/2012 LINDA DO, EUGENIO K 593.9 RENAL INSUFFICIENCY 05/13/2012 LINDA DO, EUGENIO K 593.9 RENAL INSUFFICIENCY 05/13/2012 LINDA DO, EUGENIO K 593.9 RENAL INSUFFICIENCY 05/13/2012 LINDA DO, EUGENIO K 593.9 RENAL INSUFFICIENCY 05/13/2012 MARCELO WAYNE APRNIA R 593.9 RENAL INSUFFICIENCY 05/13/2012 ONEYDA RUIZ APRN A 593.9 RENAL INSUFFICIENCY 05/13/2012 CHRISTA GLORIA APRN T 593.9 RENAL INSUFFICIENCY 05/13/2012 CHRISTA GLORIA APRN T 593.9 RENAL INSUFFICIENCY 05/13/2012 COLLEEN WAYNE APRN R 593.9 RENAL INSUFFICIENCY 05/13/2012 CHRISTA GLORIA APRN T 593.9 RENAL INSUFFICIENCY 07/07/2012 724.3 SCIATICA 07/07/2012 724.3 SCIATICA 07/07/2012 724.3 SCIATICA 07/07/2012 724.3 SCIATICA 07/07/2012 724.3 SCIATICA 07/07/2012 724.3 SCIATICA 07/07/2012 LINDA DO, EUGENIO K 724.3 SCIATICA 07/07/2012 LINDA DO, EUGENIO K 724.3 SCIATICA 07/07/2012 ANTHONY CRYSTAL, HERNAN N 724.3 SCIATICA 07/07/2012 LINDA DO, EUGENIO K 724.3 SCIATICA 07/07/2012 LINDA DO, EUGENIO K 724.3 SCIATICA 07/07/2012 MARCELO WAYNE APRNIA R 724.3 SCIATICA 07/07/2012 LINDA DO, EUGENIO K 724.3 SCIATICA 07/07/2012 LINDA DO, EUGENIO K 724.3 SCIATICA 07/07/2012 LINDA DO, EUGENIO K 724.3 SCIATICA 07/07/2012 LINDA DO, EUGENIO K 724.3 SCIATICA 07/07/2012 LINDA DO, EUGENIO K 724.3 SCIATICA 07/07/2012 LINDA DO, EUGENIO K 724.3 SCIATICA 07/07/2012 PERRI WAYNE APRNRICIA R 724.3 SCIATICA 07/07/2012 ONEYDA RUIZ APRN A 724.3 SCIATICA 07/07/2012 CHRISTA GLORIA APRN 724.3 SCIATICA 07/07/2012 CHRISTA GLORIA APRN 724.3 SCIATICA 07/07/2012 COLLEEN AWYNE APRN 724.3 SCIATICA 07/07/2012 CHRISTA GLORIA APRN 724.3 SCIATICA 09/21/2012 599.70 HEMATURIA 09/21/2012 599.70 HEMATURIA 09/21/2012 599.70 HEMATURIA 09/21/2012 LINDA DO, EUGENIO K 599.70 HEMATURIA 09/21/2012 LINDA DO, EUGENIO K 599.70 HEMATURIA 09/21/2012 HERNAN CRUZ MD 599.70 HEMATURIA 09/21/2012 LINDA DO, EUGENIO K 599.70 HEMATURIA 09/21/2012 LINDA DO, EUGENIO K 599.70 HEMATURIA 09/21/2012 COLLEEN WAYNE APRN R 599.70 HEMATURIA 09/21/2012 LINDA DO, EUGENIO K 599.70 HEMATURIA 09/21/2012 LINDA DO, EUGENIO K 599.70 HEMATURIA 09/21/2012 LINDA DO, EUGENIO K 599.70 HEMATURIA 09/21/2012 LINDA DO, EUGENIO K 599.70 HEMATURIA 09/21/2012 LINDA DO, EUGENIO K 599.70 HEMATURIA 09/21/2012 LINDA DO, EUGENIO K 599.70 HEMATURIA 09/21/2012 COLLEEN WAYNE APRN R 599.70 HEMATURIA 09/21/2012 ONEYDA RUIZ APRN 599.70 HEMATURIA 09/21/2012 CHRISTA GLORIA APRN 599.70 HEMATURIA 09/21/2012 CHRISTA GLORIA APRN 599.70 HEMATURIA 09/21/2012 COLLEEN WAYNE APRN 599.70 HEMATURIA 09/21/2012 CHRISTA GLORIA APRN 599.70 HEMATURIA 10/19/2012 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 10/19/2012 V65.49 OTHER SPECIFIED COUNSELING 10/19/2012 V73.81 HPV SCREENING 10/19/2012 V76.51 COLON CANCER SCREENING 10/19/2012 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 10/19/2012 V65.49 OTHER SPECIFIED COUNSELING 10/19/2012 V73.81 HPV SCREENING 10/19/2012 V76.51 COLON CANCER SCREENING 10/19/2012 LINDA DO, EUGENIO K 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 10/19/2012 LINDA DO, EUGENIO K V65.49 OTHER SPECIFIED COUNSELING 10/19/2012 LINDA DO, EUGENIO K V73.81 HPV SCREENING 10/19/2012 LINDA DO, EUGENIO K V76.51 COLON CANCER SCREENING 10/19/2012 LINDA DO, EUGENIO K 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 10/19/2012 LINDA DO, EUGENIO K V65.49 OTHER SPECIFIED COUNSELING 10/19/2012 LINDA DO, EUGENIO K V73.81 HPV SCREENING 10/19/2012 LINDA DO EUGENIO K V76.51 COLON CANCER SCREENING 10/19/2012 HERNAN CRUZ MD 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 10/19/2012 HERNAN CRUZ MD V65.49 OTHER SPECIFIED COUNSELING 10/19/2012 HERNAN CRUZ MD V73.81 HPV SCREENING 10/19/2012 HERNAN CURZ MD V76.51 COLON CANCER SCREENING 10/19/2012 LINDA DO EUGENIO K 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 10/19/2012 LINDA DO EUGENIO K V65.49 OTHER SPECIFIED COUNSELING 10/19/2012 LINDA DO EUGENIO K V73.81 HPV SCREENING 10/19/2012 LINDA DO, EUGENIO K V76.51 COLON CANCER SCREENING 10/19/2012 LINDA DO, EUGENIO K 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 10/19/2012 LINDA DO, EUGENIO K V65.49 OTHER SPECIFIED COUNSELING 10/19/2012 LINDA DO, EUGENIO K V73.81 HPV SCREENING 10/19/2012 LINDA DO, EUGENIO K V76.51 COLON CANCER SCREENING 10/19/2012 MARCELO WAYNE APRNIA R 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 10/19/2012 PERRI WAYNE APRNRICIA R V65.49 OTHER SPECIFIED COUNSELING 10/19/2012 PERRI WAYNE APRNRICIA R V73.81 HPV SCREENING 10/19/2012 ROSANA IRVIN COLLEEN R V76.51 COLON CANCER SCREENING 10/19/2012 LINDA DO, EUGENIO K 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 10/19/2012 LINDA DO, EUGENIO K V65.49 OTHER SPECIFIED COUNSELING 10/19/2012 LINDA DO, EUGENIO K V73.81 HPV SCREENING 10/19/2012 LINDA DO EUGENIO K V76.51 COLON CANCER SCREENING 10/19/2012 LINDA DO EUGENIO K 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 10/19/2012 LINDA DO, EUGENIO K V65.49 OTHER SPECIFIED COUNSELING 10/19/2012 LINDA DO, EUGENIO K V73.81 HPV SCREENING 10/19/2012 LINDA DO, EUGENIO K V76.51 COLON CANCER SCREENING 10/19/2012 LINDA DO, EUGENIO K 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 10/19/2012 LINDA DO, EUGENIO K V65.49 OTHER SPECIFIED COUNSELING 10/19/2012 LINDA DO, EUGENIO K V73.81 HPV SCREENING 10/19/2012 LINDA DO, EUGENIO K V76.51 COLON CANCER SCREENING 10/19/2012 LINDA DO, EUGENIO K 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 10/19/2012 LINDA DO, EUGENIO K V65.49 OTHER SPECIFIED COUNSELING 10/19/2012 LINDA DO, EUGENIO K V73.81 HPV SCREENING 10/19/2012 LINDA DO, EUGENIO K V76.51 COLON CANCER SCREENING 10/19/2012 ILNDA DO, EUGENIO K 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 10/19/2012 LINDA DO, EUGENIO K V65.49 OTHER SPECIFIED COUNSELING 10/19/2012 LINDA DO, EUGENIO K V73.81 HPV SCREENING 10/19/2012 LINDA DO, EUGENIO K V76.51 COLON CANCER SCREENING 10/19/2012 LINDA DO, EUGENIO K 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 10/19/2012 LINDA DO, EUGENIO K V65.49 OTHER SPECIFIED COUNSELING 10/19/2012 LINDA DO, EUGENIO K V73.81 HPV SCREENING 10/19/2012 LINDA DO, EUGENIO K V76.51 COLON CANCER SCREENING 10/19/2012 PERRI WAYNE APRNRICIA R 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 10/19/2012 PERRI WAYNE APRNRICIA R V65.49 OTHER SPECIFIED COUNSELING 10/19/2012 ROSANA IRVIN COLLEEN R V73.81 HPV SCREENING 10/19/2012 PERRI WAYNE APRNRICIA R V76.51 COLON CANCER SCREENING 10/19/2012 SARAONEYDA Mead APRN A 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 10/19/2012 ONEYDA RUIZ APRN A V65.49 OTHER SPECIFIED COUNSELING 10/19/2012 SARAONEYDA Mead APRN A V73.81 HPV SCREENING 10/19/2012 SARAONEYDA Mead APRN A V76.51 COLON CANCER SCREENING 10/19/2012 CHRISTA GLORIA APRN T 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 10/19/2012 CHRISTA GLORIA APRN V65.49 OTHER SPECIFIED COUNSELING 10/19/2012 CHRISTA GLORIA APRN V73.81 HPV SCREENING 10/19/2012 CHRISTA GLORIA APRN V76.51 COLON CANCER SCREENING 10/19/2012 CHRISTA GLORIA APRN 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 10/19/2012 CHRISTA GLORIA APRN V65.49 OTHER SPECIFIED COUNSELING 10/19/2012 CHRISTA GLORIA APRN V73.81 HPV SCREENING 10/19/2012 CHRISTA GLORIA APRN V76.51 COLON CANCER SCREENING 10/19/2012 MARCELO WAYNE APRNIA R 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 10/19/2012 PERRI WAYNE APRNRICIA R V65.49 OTHER SPECIFIED COUNSELING 10/19/2012 COLLEEN WAYNE APRN R V73.81 HPV SCREENING 10/19/2012 MARCELO WAYNE APRNIA R V76.51 COLON CANCER SCREENING 10/19/2012 CHRISTA GLORIA APRN 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 10/19/2012 CHRISTA GLORIA APRN V65.49 OTHER SPECIFIED COUNSELING 10/19/2012 CHRISTA GLORIA APRN V73.81 HPV SCREENING 10/19/2012 CHRISTA GLORIA APRN V76.51 COLON CANCER SCREENING 11/07/2012 MADDI PORTILLO EUGENIO K Ot 327.23 OBSTRUCTIVE SLEEP APNEA (ADULT) (PEDIATR 11/21/2012 LINDA , EUGENIO K 780.57 SLEEP APNEA 11/21/2012 LINDA DO EUGENIO K 780.57 SLEEP APNEA 11/21/2012 ANTHONY CRYSTAL, HERNAN Mead 780.57 SLEEP APNEA 11/21/2012 LINDA DO EUGENIO K 780.57 SLEEP APNEA 11/21/2012 LINDA DO EUGENIO K 780.57 SLEEP APNEA 11/21/2012 PERRI WAYNE APRNRICIA R 780.57 SLEEP APNEA 11/21/2012 LINDA DO EUGENIO K 780.57 SLEEP APNEA 11/21/2012 LINDA DO EUGENIO K 780.57 SLEEP APNEA 11/21/2012 LINDA DO EUGENIO K 780.57 SLEEP APNEA 11/21/2012 LINDA DO EUGENIO K 780.57 SLEEP APNEA 11/21/2012 LINDA DO, EUGENIO K 780.57 SLEEP APNEA 11/21/2012 LINDA DO, EUGENIO K 780.57 SLEEP APNEA 11/21/2012 COLLEEN WAYNE APRN R 780.57 SLEEP APNEA 11/21/2012 ONEYDA RUIZ APRN A 780.57 SLEEP APNEA 11/21/2012 CHRISTA GLORIA APRN 780.57 SLEEP APNEA 11/21/2012 CHRISTA GLORIA APRN 780.57 SLEEP APNEA 11/21/2012 COLLEEN WAYNE APRN R 780.57 SLEEP APNEA 11/21/2012 CHRISTA GLORIA APRN 780.57 SLEEP APNEA 04/19/2013 LINDA DO, EUGENIO K 327.23 OBSTRUCTIVE SLEEP APNEA (ADULT) (PEDIATRIC) 04/19/2013 LINDA DO, EUGENIO K 786.09 RESPIRATORY ABNORMALITY OTHER 04/19/2013 LINDA DO, EUGENIO K 327.23 OBSTRUCTIVE SLEEP APNEA (ADULT) (PEDIATRIC) 04/19/2013 LINDA DO, EUGENIO K 786.09 RESPIRATORY ABNORMALITY OTHER 04/19/2013 LINDA DO, EUGENIO K 327.23 OBSTRUCTIVE SLEEP APNEA (ADULT) (PEDIATRIC) 04/19/2013 LINDA DO, EUGENIO K 786.09 RESPIRATORY ABNORMALITY OTHER 04/19/2013 LINDA DO, EUGENIO K 327.23 OBSTRUCTIVE SLEEP APNEA (ADULT) (PEDIATRIC) 04/19/2013 LINDA DO, EUGENIO K 786.09 RESPIRATORY ABNORMALITY OTHER 04/19/2013 LINDA DO, EUGENIO K 327.23 OBSTRUCTIVE SLEEP APNEA (ADULT) (PEDIATRIC) 04/19/2013 LINDA DO, EUGENIO K 786.09 RESPIRATORY ABNORMALITY OTHER 04/19/2013 COLLEEN WAYNE APRN R 327.23 OBSTRUCTIVE SLEEP APNEA (ADULT) (PEDIATRIC) 04/19/2013 COLLEEN WAYNE APRN R 786.09 RESPIRATORY ABNORMALITY OTHER 04/19/2013 ONEYDA RUIZ APRN A 327.23 OBSTRUCTIVE SLEEP APNEA (ADULT) (PEDIATRIC) 04/19/2013 ONEYDA RUIZ APRN A 786.09 RESPIRATORY ABNORMALITY OTHER 04/19/2013 CHRISTA GLORIA APRN 327.23 OBSTRUCTIVE SLEEP APNEA (ADULT) (PEDIATRIC) 04/19/2013 CHRISTA GLORIA APRN 786.09 RESPIRATORY ABNORMALITY OTHER 04/19/2013 CHRISTA GLORIA APRN 327.23 OBSTRUCTIVE SLEEP APNEA (ADULT) (PEDIATRIC) 04/19/2013 CHRISTA GLORIA APRN 786.09 RESPIRATORY ABNORMALITY OTHER 04/19/2013 COLLEEN WAYNE APRN R 327.23 OBSTRUCTIVE SLEEP APNEA (ADULT) (PEDIATRIC) 04/19/2013 COLLEEN WAYNE APRN R 786.09 RESPIRATORY ABNORMALITY OTHER 04/19/2013 CHRISTA GLORIA APRN 327.23 OBSTRUCTIVE SLEEP APNEA (ADULT) (PEDIATRIC) 04/19/2013 CHRISTA GLORIA APRN 786.09 RESPIRATORY ABNORMALITY OTHER 05/05/2013 LINDA DO, EUGENIO K 466.0 BRONCHITIS, ACUTE 05/05/2013 LINDA DO, EUGENIO K 786.05 SHORTNESS OF BREATH 05/05/2013 LINDA DO, EUGENIO K 466.0 BRONCHITIS, ACUTE 05/05/2013 LINDA DO, EUGENIO K 786.05 SHORTNESS OF BREATH 05/05/2013 LINDA DO, EUGENIO K 466.0 BRONCHITIS, ACUTE 05/05/2013 LINDA DO, EUGENIO K 786.05 SHORTNESS OF BREATH 05/05/2013 LINDA DO, EUGENIO K 466.0 BRONCHITIS, ACUTE 05/05/2013 LINDA DO, EUGENIO K 786.05 SHORTNESS OF BREATH 05/05/2013 COLLEEN WAYNE APRN R 466.0 BRONCHITIS, ACUTE 05/05/2013 COLLEEN WAYNE APRN R 786.05 SHORTNESS OF BREATH 05/05/2013 ONEYDA RUIZ APRN A 466.0 BRONCHITIS, ACUTE 05/05/2013 ONEYDA RUIZ APRN A 786.05 SHORTNESS OF BREATH 05/05/2013 CHRISTA GLORIA APRN 466.0 BRONCHITIS, ACUTE 05/05/2013 CHRISTA GLORIA APRN 786.05 SHORTNESS OF BREATH 05/05/2013 CHRISTA GLORIA APRN 466.0 BRONCHITIS, ACUTE 05/05/2013 CHRISTA GLORIA APRN 786.05 SHORTNESS OF BREATH 05/05/2013 COLLEEN WAYNE APRN R 466.0 BRONCHITIS, ACUTE 05/05/2013 COLLEEN WAYNE APRN R 786.05 SHORTNESS OF BREATH 05/05/2013 CHRISTA GLORIA APRN 466.0 BRONCHITIS, ACUTE 05/05/2013 CHRISTA GLORIA APRN 786.05 SHORTNESS OF BREATH 09/13/2013 COLLEEN WAYNE APRN R 625.9 UNSPECIFIED SYMPTOM ASSOCIATED WITH FEMALE GENITAL ORGANS 09/13/2013 ONEYDA RUIZ APRN A 625.9 UNSPECIFIED SYMPTOM ASSOCIATED WITH FEMALE GENITAL ORGANS 09/13/2013 FAIZAN AVIONICS MANAGER, CHRISTA T 625.9 UNSPECIFIED SYMPTOM ASSOCIATED WITH FEMALE GENITAL ORGANS 09/13/2013 FAIZAN AVIONICS MANAGERCHRISTA Mead T 625.9 UNSPECIFIED SYMPTOM ASSOCIATED WITH FEMALE GENITAL ORGANS 09/13/2013 WAYNE AVIONICS MANAGER, COLLEEN R 625.9 UNSPECIFIED SYMPTOM ASSOCIATED WITH FEMALE GENITAL ORGANS 09/13/2013 FAIZAN AVIONICS MANAGERCHRISTA Mead T 625.9 UNSPECIFIED SYMPTOM ASSOCIATED WITH FEMALE GENITAL ORGANS 09/28/2013 SARA APRN, ONEYDA A 599.0 URINARY TRACT INFECTION 09/28/2013 CHRISTA GLORIA APRN 599.0 URINARY TRACT INFECTION 09/28/2013 FAIZAN AVIONICS MANAGERCHRISTA Mead T 599.0 URINARY TRACT INFECTION 09/28/2013 ROSANA AVIONICS MANAGERCOLLEEN Mead R 599.0 URINARY TRACT INFECTION 09/28/2013 FAIZAN AVIONICS MANAGERCHRISTA Mead 599.0 URINARY TRACT INFECTION 05/04/2014 COLLEEN WAYNE APRN R 786.2 COUGH 05/04/2014 CHRISTA GLORIA APRN 786.2 COUGH 12/23/2014 Ot 793.89 12/23/2014 Ot V76.12 12/23/2014 Ot 610.0 12/23/2014 CANDI CRYSTAL, KASIA Canas Ot V72.84 12/23/2014 CANDI CRYSTAL, KASIA Canas Ot V72.84 03/18/2016 MILTON CRYSTAL, HENRY Rodgers Ot M79.604 PAIN IN RIGHT LEG 03/19/2016 MILTON CRYSTAL, HENRY Rodgers Ot M79.604 PAIN IN RIGHT LEG 05/24/2016 SERGIO FARAH MD Ot I74.10 EMBOLISM AND THROMBOSIS OF UNSPECIFIED P 05/24/2016 SERGIO FARAH MD Ot K44.9 DIAPHRAGMATIC HERNIA WITHOUT OBSTRUCTION 05/24/2016 SERGIO FARAH MD Ot N28.1 CYST OF KIDNEY, ACQUIRED 05/24/2016 SERGIO FARAH MD Ot R10.30 LOWER ABDOMINAL PAIN, UNSPECIFIED 05/24/2016 SERGIO FARAH MD Ot R10.31 RIGHT LOWER QUADRANT PAIN 05/24/2016 SERGIO FARAH MD Ot R91.1 SOLITARY PULMONARY NODULE 05/24/2016 SERGIO FARAH MD Ot Z79.82 HALF-WAY (CURRENT) USE OF ASPIRIN 05/24/2016 SERGIO FARAH MD Ot Z79.899 OTHER HALF-WAY (CURRENT) DRUG THERAPY 05/24/2016 SERGIO FARAH MD Ot Z85.41 PERSONAL HISTORY OF MALIGNANT NEOPLASM O 05/24/2016 SERGIO FARAH MD Ot 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 05/24/2016 SERGIO FARAH MD Ot Z90.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 BOTH CERVIX AND UTER 05/27/2016 SERGIO FARAH MD Ot I74.10 EMBOLISM AND THROMBOSIS OF UNSPECIFIED P 05/27/2016 SERGIO FARAH MD Ot K44.9 DIAPHRAGMATIC HERNIA WITHOUT OBSTRUCTION 05/27/2016 SERGIO FARAH MD Ot N28.1 CYST OF KIDNEY, ACQUIRED 05/27/2016 SERGIO FARAH MD Ot R10.30 LOWER ABDOMINAL PAIN, UNSPECIFIED 05/27/2016 SERGIO FARAH MD Ot R10.31 RIGHT LOWER QUADRANT PAIN 05/27/2016 SERGIO FARAH MD Ot R91.1 SOLITARY PULMONARY NODULE 05/27/2016 SERGIO FARAH MD Ot Z79.82 DYNAMOMETER TESTER (CURRENT) USE OF ASPIRIN 05/27/2016 SERGIO FARAH MD Ot Z79.899 OTHER DYNAMOMETER TESTER (CURRENT) DRUG THERAPY 05/27/2016 SERGIO FARAH MD Ot Z85.41 PERSONAL HISTORY OF MALIGNANT NEOPLASM O 05/27/2016 SERGIO FARAH MD Ot 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 05/27/2016 SERGIO FARAH MD Ot Z90.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 BOTH CERVIX AND UTER 05/27/2016 SERGIO FARAH MD Ot I74.10 EMBOLISM AND THROMBOSIS OF UNSPECIFIED P 05/27/2016 SERGIO FARAH MD Ot K44.9 DIAPHRAGMATIC HERNIA WITHOUT OBSTRUCTION 05/27/2016 SERGIO FARAH MD Ot N28.1 CYST OF KIDNEY, ACQUIRED 05/27/2016 SERGIO FARAH MD Ot R10.30 LOWER ABDOMINAL PAIN, UNSPECIFIED 05/27/2016 SERGIO FARAH MD Ot R10.31 RIGHT LOWER QUADRANT PAIN 05/27/2016 SERGIO FARAH MD Ot R91.1 SOLITARY PULMONARY NODULE 05/27/2016 SERGIO FARAH MD Ot Z79.82 DYNAMOMETER TESTER (CURRENT) USE OF ASPIRIN 05/27/2016 SERGIO FARAH MD Ot Z79.899 OTHER DYNAMOMETER TESTER (CURRENT) DRUG THERAPY 05/27/2016 GAGAN CRYSTAL, SERGIO Griffith Ot Z85.41 PERSONAL HISTORY OF MALIGNANT NEOPLASM O 05/27/2016 SERGIO FARAH MD Ot 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 05/27/2016 SERGIO FARAH MD Ot Z90.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 BOTH CERVIX AND UTER 05/31/2016 SERGIO FARAH MD Ot I74.10 EMBOLISM AND THROMBOSIS OF UNSPECIFIED P 05/31/2016 GAGAN CRYSTAL, SERGIO Griffith Ot K44.9 DIAPHRAGMATIC HERNIA WITHOUT OBSTRUCTION 05/31/2016 GAGAN CRYSTAL, SERGIO Griffith Ot N28.1 CYST OF KIDNEY, ACQUIRED 05/31/2016 SERGIO FARAH MD Ot R10.30 LOWER ABDOMINAL PAIN, UNSPECIFIED 05/31/2016 SERGIO FARAH MD Ot R10.31 RIGHT LOWER QUADRANT PAIN 05/31/2016 SERGIO FARAH MD Ot R91.1 SOLITARY PULMONARY NODULE 05/31/2016 SERGIO FARAH MD Ot Z79.82 HALF-WAY (CURRENT) USE OF ASPIRIN 05/31/2016 SERGIO FARAH MD Ot Z79.899 OTHER HALF-WAY (CURRENT) DRUG THERAPY 05/31/2016 SERGIO FARAH MD Ot Z85.41 PERSONAL HISTORY OF MALIGNANT NEOPLASM O 05/31/2016 SERGIO FARAH MD Ot 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 05/31/2016 SERGIO FARAH MD Ot Z90.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 BOTH CERVIX AND UTER 08/07/2017 YUDI MORRISON AVIONICS MANAGER Ot F17.210 NICOTINE DEPENDENCE, CIGARETTES, UNCOMPL 08/07/2017 YUDI MORRISON AVIONICS MANAGER Ot R07.89 OTHER CHEST PAIN 08/07/2017 YUDI MORRISON APRN Ot Z79.82 HALF-WAY (CURRENT) USE OF ASPIRIN 08/07/2017 YUDI MORRISON APRN Ot 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 08/07/2017 YUDI MORRISON APRN Ot Z87.19 PERSONAL HISTORY OF OTHER DISEASES OF TH 08/07/2017 YUDI MORRISON APRN Ot 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 08/07/2017 YUDI MORRISON APRN Ot Z90.89 ACQUIRED ABSENCE OF OTHER ORGANS 08/11/2017 YUDI MORRISON AVIONICS MANAGER Ot F17.210 NICOTINE DEPENDENCE, CIGARETTES, UNCOMPL 08/11/2017 YUDI MORRISON AVIONICS MANAGER Ot R07.89 OTHER CHEST PAIN 08/11/2017 YUDI MORRISON AVIONICS MANAGER Ot Z79.82 DYNAMOMETER TESTER (CURRENT) USE OF ASPIRIN 08/11/2017 YUDI MORRISON AVIONICS MANAGER Ot 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 08/11/2017 YUDI MORRISON AVIONICS MANAGER Ot Z87.19 PERSONAL HISTORY OF OTHER DISEASES OF TH 08/11/2017 YUDI MORRISON AVIONICS MANAGER Ot 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 08/11/2017 YUDI MORRISON AVIONICS MANAGER Ot Z90.89 ACQUIRED ABSENCE OF OTHER ORGANS 09/08/2017 DEJA ZHONG AVIONICS MANAGER Ot Z78.0 ASYMPTOMATIC MENOPAUSAL STATE 09/08/2017 Ot 793.89 OTH (ABN) FINDINGS ON RADIOLOGICAL EXAMI 09/08/2017 Ot V76.12 OTH SCREEN MAMMO-MALIGN NEOPLASM OF JOSIANE 09/08/2017 Ot 610.0 SOLITARY CYST OF BREAST 09/08/2017 CANDI CRYSTAL, KASIA Canas Ot V72.84 EXAM PRE-OPERATIVE NOS 09/08/2017 CANDI CRYSTAL, KASIA Canas Ot V72.84 EXAM PRE-OPERATIVE NOS 09/08/2017 DEJA ZHONG AVIONICS MANAGER Ot Z78.0 ASYMPTOMATIC MENOPAUSAL STATE 09/12/2017 DEJA ZHONG APRN Ot 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, 09/12/2017 DEJA ZHONG AVIONICS MANAGER Ot Z13.820 ENCOUNTER FOR SCREENING FOR OSTEOPOROSIS 09/12/2017 DEJA ZHONG AVIONICS MANAGER Ot Z78.0 ASYMPTOMATIC MENOPAUSAL STATE 10/02/2017 DEJA ZHONG AVIONICS MANAGER Ot 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, 10/02/2017 DEJA ZHONG AVIONICS MANAGER Ot Z13.820 ENCOUNTER FOR SCREENING FOR OSTEOPOROSIS 10/02/2017 DEJA ZHONG AVIONICS MANAGER Ot Z78.0 ASYMPTOMATIC MENOPAUSAL STATE Procedures Code Description [place] [address] MAMMOGRAM DX, RIGHT 04/13/2012 80987 MAMMOGRAM, SCREENING 04/14/2012 15423 ROUTINE VENIPUNCTURE 05/12/2012 13883 LIPID PANEL 05/12/2012 23236 CBC 05/12/2012 81606 CMP 05/12/2012 [id number] GFR CALC (RESULT ONLY) 05/12/2012 17811 TSH 05/12/2012 14859 TRIGGER POINT INJ/1-2 MUS 07/14/2012 57097 ROUTINE VENIPUNCTURE 08/10/2012 98013 CMP 08/10/2012 45047 LIPID PANEL 08/10/2012 7806110 GFR CALC (RESULT ONLY) 08/10/2012 79803 CULTURE URINE 09/21/2012 10386 UA W/ CULTURE IF INDICATED 09/21/2012 61165 ROUTINE VENIPUNCTURE 11/24/2012 89211 RENAL PROFILE 11/24/2012 99269 LIPID PANEL 11/24/2012 55588 MAGNESIUM 11/24/2012 [id number] GFR CALC (RESULT ONLY) 11/24/2012 PRO/CRE URINE PROTEIN TO CREATNINE RATIO 11/24/2012 Otolaryng Emilio Su 11/30/2012 91774 ROUTINE VENIPUNCTURE 01/22/2013 73594 CRP 01/22/2013 36230 RA FACTOR 01/23/2013 ANAANA SOPHIE ANALYZER (SCREEN) 01/23/2013 51976 CCP ANTIBODY 01/23/2013 9193899 TITER SOPHIE (RESULT ONLY) 01/25/2013 2070165 INT DNA (RESULT ONLY) 01/25/2013 [id number] INT MICHELINE (RESULT ONLY) 01/25/2013 66723 DNA ANTIBODY (DOUBLE STRAND ) 01/26/2013 81014 MICHELINE SCR 01/26/2013 78919 JOINT INJECTION- LARGE JOINT (SPECIFY MEDCIN DESCRIPTION) 02/22/2013 29170 ROUTINE VENIPUNCTURE 02/24/2013 28354 EYE EXAM PERFORMED 02/24/2013 51409 CBC 02/24/2013 48396 INFLUENZA A & B (IN-HOUSE) 03/11/2013 66884 EYE EXAM PERFORMED 03/29/2013 69669 OXIMETRY 04/19/2013 35098 OXIMETRY 05/05/2013 71107 ROUTINE VENIPUNCTURE 2013 81377 CBC 2013 25581 UA W/ CULTURE IF INDICATED 09/13/2013 01013 INFLUENZA A & B (IN-HOUSE) 05/04/2014 96756 OXIMETRY 05/04/2014 Results Test Result Range Complete blood count (CBC) with automated white blood cell (WBC) differential - 05/24/16 13:30 Blood leukocytes automated count (number/volume) 10.5 10*3/uL 4.3-11.0 Blood erythrocytes automated count (number/volume) 5.14 10*6/uL 4.35-5.85 Venous blood hemoglobin measurement (mass/volume) 15.2 g/dL 11.5-16.0 Blood hematocrit (volume fraction) 45 % 35-52 Automated erythrocyte mean corpuscular volume 88 [foz_us] 80-99 Automated erythrocyte mean corpuscular hemoglobin (mass per erythrocyte) 30 pg 25-34 Automated erythrocyte mean corpuscular hemoglobin concentration measurement ( mass/volume) 34 g/dL 32-36 Automated erythrocyte distribution width ratio 13.7 % 10.0-14.5 Automated blood platelet count (count/volume) 250 10*3/uL 130-400 Automated blood platelet mean volume measurement 10.7 [foz_us] 7.4-10.4 Automated blood neutrophils/100 leukocytes 89 % 42-75 Automated blood lymphocytes/100 leukocytes 7 % 12-44 Blood monocytes/100 leukocytes 5 % 0-12 Automated blood eosinophils/100 leukocytes 0 % 0-10 Automated blood basophils/100 leukocytes 0 % 0-10 Blood neutrophils automated count (number/volume) 9.3 10*3 1.8-7.8 Blood lymphocytes automated count (number/volume) 0.7 10*3 1.0-4.0 Blood monocytes automated count (number/volume) 0.5 10*3 0.0-1.0 Automated eosinophil count 0.0 10*3/uL 0.0-0.3 Automated blood basophil count (count/volume) 0.0 10*3/uL 0.0-0.1 Comprehensive metabolic panel - 05/24/16 13:30 Serum or plasma sodium measurement (moles/volume) 141 mmol/L 135-145 Serum or plasma potassium measurement (moles/volume) 4.0 mmol/L 3.6-5.0 Serum or plasma chloride measurement (moles/volume) 108 mmol/L 98-107 Carbon dioxide 21 mmol/L 21-32 Serum or plasma anion gap determination (moles/volume) 12 mmol/L 5-14 Serum or plasma urea nitrogen measurement (mass/volume) 14 mg/dL 7-18 Serum or plasma creatinine measurement (mass/volume) 0.96 mg/dL 0.60-1.30 Serum or plasma urea nitrogen/creatinine mass ratio 15 NRG Serum or plasma creatinine measurement with calculation of estimated glomerular filtration rate 58 NRG Serum or plasma glucose measurement (mass/volume) 115 mg/dL 70-105 Serum or plasma calcium measurement (mass/volume) 9.2 mg/dL 8.5-10.1 Serum or plasma total bilirubin measurement (mass/volume) 0.5 mg/dL 0.1-1.0 Serum or plasma alkaline phosphatase measurement (enzymatic activity/volume) 68 U/L 40-136 Serum or plasma aspartate aminotransferase measurement (enzymatic activity/ volume) 15 U/L 5-34 Serum or plasma alanine aminotransferase measurement (enzymatic activity/volume ) 18 U/L 0-55 Serum or plasma protein measurement (mass/volume) 6.8 g/dL 6.4-8.2 Serum or plasma albumin measurement (mass/volume) 4.1 g/dL 3.2-4.5 Lipase - 05/24/16 13:30 Lipase 15 U/L 8-78 Blood manual differential performed detection - 05/24/16 13:30 Blood monocytes/100 leukocytes 3 % NRG Manual blood segmented neutrophils/100 leukocytes 89 % NRG Blood band neutrophils/100 leukocytes 0 % NRG Manual blood lymphocytes/100 leukocytes 7 % NRG Manual eosinophils/100 leukocytes in nose 1 % NRG Manual blood basophils/100 leukocytes 0 % NRG Blood erythrocyte morphology finding identification NORMAL NRG Complete urinalysis with reflex to culture - 05/24/16 14:15 Urine color determination YELLOW NRG Urine clarity determination CLEAR NRG Urine pH measurement by test strip 6 5-9 Specific gravity of urine by test strip 1.010 1.016- 1.022 Urine protein assay by test strip, semi-quantitative NEGATIVE NEGATIVE Urine glucose detection by automated test strip NEGATIVE NEGATIVE Erythrocytes detection in urine sediment by light microscopy NEGATIVE NEGATIVE Urine ketones detection by automated test strip NEGATIVE NEGATIVE Urine nitrite detection by test strip NEGATIVE NEGATIVE Urine total bilirubin detection by test strip NEGATIVE NEGATIVE Urine urobilinogen measurement by automated test strip (mass/volume) NORMAL NORMAL Urine leukocyte esterase detection by dipstick NEGATIVE NEGATIVE Automated urine sediment erythrocyte count by microscopy (number/high power field) NONE NRG Automated urine sediment leukocyte count by microscopy (number/high power field ) NONE NRG Bacteria detection in urine sediment by light microscopy NEGATIVE NRG Squamous epithelial cells detection in urine sediment by light microscopy 10-25 NRG Crystals detection in urine sediment by light microscopy NONE NRG Casts detection in urine sediment by light microscopy NONE NRG Mucus detection in urine sediment by light microscopy NEGATIVE NRG Complete urinalysis with reflex to culture NO NRG CBC With Differential/Platelet - 12/20/16 10:50 WBC 12.6 x10E3/uL 3.4-10.8 RBC 5.28 x10E6/uL 3.77-5.28 Hemoglobin 15.9 g/dL 11.1-15.9 Hematocrit 46.8 % 34.0-46.6 MCV 89 fL 79-97 MCH 30.1 pg 26.6-33.0 MCHC 34.0 g/dL 31.5-35.7 RDW 14.0 % 12.3-15.4 Platelets 330 x10E3/uL 150-379 Neutrophils 77 % Lymphs 18 % Monocytes 5 % Eos 0 % Basos 0 % Neutrophils (Absolute) 9.6 x10E3/uL 1.4-7.0 Lymphs (Absolute) 2.3 x10E3/uL 0.7-3.1 Monocytes(Absolute) 0.6 x10E3/uL 0.1-0.9 Eos (Absolute) 0.1 x10E3/uL 0.0-0.4 Baso (Absolute) 0.0 x10E3/uL 0.0-0.2 Immature Granulocytes 0 % Immature Grans (Abs) 0.0 x10E3/uL 0.0-0.1 Hematology Comments: Note: Comp. Metabolic Panel (14) - 12/20/16 10:50 Glucose, Serum 112 mg/dL 65-99 BUN 17 mg/dL 8-27 Creatinine, Serum 0.91 mg/dL 0.57-1.00 eGFR If NonAfricn Am 65 mL/min/1.73 >59 eGFR If Africn Am 74 mL/min/1.73 >59 BUN/Creatinine Ratio 19 12-28 Sodium, Serum 143 mmol/L 134-144 Potassium, Serum 4.8 mmol/L 3.5-5.2 Chloride, Serum 103 mmol/L 96-106 Carbon Dioxide, Total 20 mmol/L 18-29 Calcium, Serum 9.8 mg/dL 8.7-10.3 Protein, Total, Serum 7.3 g/dL 6.0-8.5 Albumin, Serum 4.3 g/dL 3.6-4.8 Globulin, Total 3.0 g/dL 1.5-4.5 A/G Ratio 1.4 1.2-2.2 Bilirubin, Total 0.4 mg/dL 0.0-1.2 Alkaline Phosphatase, S 89 IU/L 39-117 AST (SGOT) 21 IU/L 0-40 ALT (SGPT) 21 IU/L 0-32 Lipid Panel - 12/20/16 10:50 Cholesterol, Total 206 mg/dL 100-199 Triglycerides 141 mg/dL 0-149 HDL Cholesterol 60 mg/dL >39 VLDL Cholesterol Robson 28 mg/dL 5-40 LDL Cholesterol Calc 118 mg/dL 0-99 TSH - 12/20/16 10:50 TSH 1.110 uIU/mL 0.450-4.500 CMP - 12/20/16 10:50 Glucose, Serum 112 mg/dL 65-99 BUN 17 mg/dL 8-27 Creatinine, Serum 0.91 mg/dL 0.57-1.00 eGFR If NonAfricn Am 65 mL/min/1.73 >59 eGFR If Africn Am 74 mL/min/1.73 >59 BUN/Creatinine Ratio 19 12-28 Sodium, Serum 143 mmol/L 134-144 Potassium, Serum 4.8 mmol/L 3.5-5.2 Chloride, Serum 103 mmol/L 96-106 Carbon Dioxide, Total 20 mmol/L 18-29 Calcium, Serum 9.8 mg/dL 8.7-10.3 Protein, Total, Serum 7.3 g/dL 6.0-8.5 Albumin, Serum 4.3 g/dL 3.6-4.8 Globulin, Total 3.0 g/dL 1.5-4.5 A/G Ratio 1.4 1.2-2.2 Bilirubin, Total 0.4 mg/dL 0.0-1.2 Alkaline Phosphatase, S 89 IU/L 39-117 AST (SGOT) 21 IU/L 0-40 ALT (SGPT) 21 IU/L 0-32 PDM - AMPHETAMINES W/ REFLEX d/l ISOMERS - 06/25/17 19:08 Prescribed Drug 1 [place](TM) NRG COMMENT NRG Amphetamine NEGATIVE ng/mL <250 medMATCH Amphetamine CONSISTENT NRG Methamphetamine NEGATIVE ng/mL <250 medMATCH Methamphetamine CONSISTENT NRG Complete blood count (CBC) with automated white blood cell (WBC) differential - 08/07/17 13:45 Blood leukocytes automated count (number/volume) 13.4 10*3/uL 4.3-11.0 Blood erythrocytes automated count (number/volume) 5.21 10*6/uL 4.35-5.85 Venous blood hemoglobin measurement (mass/volume) 14.9 g/dL 11.5-16.0 Blood hematocrit (volume fraction) 45 % 35-52 Automated erythrocyte mean corpuscular volume 86 [foz_us] 80-99 Automated erythrocyte mean corpuscular hemoglobin (mass per erythrocyte) 29 pg 25-34 Automated erythrocyte mean corpuscular hemoglobin concentration measurement ( mass/volume) 33 g/dL 32-36 Automated erythrocyte distribution width ratio 14.5 % 10.0-14.5 Automated blood platelet count (count/volume) 305 10*3/uL 130-400 Automated blood platelet mean volume measurement 11.0 [foz_us] 7.4-10.4 Automated blood neutrophils/100 leukocytes 75 % 42-75 Automated blood lymphocytes/100 leukocytes 20 % 12-44 Blood monocytes/100 leukocytes 5 % 0-12 Automated blood eosinophils/100 leukocytes 0 % 0-10 Automated blood basophils/100 leukocytes 0 % 0-10 Blood neutrophils automated count (number/volume) 10.0 10*3 1.8-7.8 Blood lymphocytes automated count (number/volume) 2.7 10*3 1.0-4.0 Blood monocytes automated count (number/volume) 0.7 10*3 0.0-1.0 Automated eosinophil count 0.1 10*3/uL 0.0-0.3 Automated blood basophil count (count/volume) 0.0 10*3/uL 0.0-0.1 PT panel in platelet poor plasma by coagulation assay - 08/07/17 13:45 Prothrombin time (PT) in platelet poor plasma by coagulation assay 13.2 s 12.2-14.7 INR in platelet poor plasma or blood by coagulation assay 1.0 0.8-1.4 Activated partial thromboplastin time (aPTT) in platelet poor plasma bycoagulation assay - 08/07/17 13:45 Activated partial thromboplastin time (aPTT) in platelet poor plasma bycoagulation assay 25 s 24-35 Comprehensive metabolic panel - 08/07/17 13:45 Serum or plasma sodium measurement (moles/volume) 140 mmol/L 135-145 Serum or plasma potassium measurement (moles/volume) 3.9 mmol/L 3.6-5.0 Serum or plasma chloride measurement (moles/volume) 108 mmol/L 98-107 Carbon dioxide 18 mmol/L 21-32 Serum or plasma anion gap determination (moles/volume) 14 mmol/L 5-14 Serum or plasma urea nitrogen measurement (mass/volume) 13 mg/dL 7-18 Serum or plasma creatinine measurement (mass/volume) 1.01 mg/dL 0.60-1.30 Serum or plasma urea nitrogen/creatinine mass ratio 13 NRG Serum or plasma creatinine measurement with calculation of estimated glomerular filtration rate 54 NRG Serum or plasma glucose measurement (mass/volume) 145 mg/dL 70-105 Serum or plasma calcium measurement (mass/volume) 9.4 mg/dL 8.5-10.1 Serum or plasma total bilirubin measurement (mass/volume) 0.4 mg/dL 0.1-1.0 Serum or plasma alkaline phosphatase measurement (enzymatic activity/volume) 76 U/L 40-136 Serum or plasma aspartate aminotransferase measurement (enzymatic activity/ volume) 15 U/L 5-34 Serum or plasma alanine aminotransferase measurement (enzymatic activity/volume ) 12 U/L 0-55 Serum or plasma protein measurement (mass/volume) 7.0 g/dL 6.4-8.2 Serum or plasma albumin measurement (mass/volume) 3.9 g/dL 3.2-4.5 Magnesium - 08/07/17 13:45 Magnesium 2.0 mg/dL 1.8-2.4 Serum or plasma troponin i.cardiac measurement (mass/volume) - 08/07/17 13:45 Serum or plasma troponin i.cardiac measurement (mass/volume) < ng/ mL <0.30 Serum or plasma lithium measurement (moles/volume) - 08/07/17 13:45 BNP level 298.6 pg/mL <100.0 Myoglobin, serum - 08/07/17 13:45 Myoglobin, serum 59.2 ng/mL 10.0-92.0 Serum or plasma troponin i.cardiac measurement (mass/volume) - 08/07/17 16:23 Serum or plasma troponin i.cardiac measurement (mass/volume) < ng/ mL <0.30 Encounters ACCT No. Visit Date/Time Discharge Status Pt. Type Provider Facility Loc./Unit Complaint [id number] 06/27/2014 11:17:00 06/27/2014 23:59:59 CLS Outpatient CHRISTA GLORIA APRN [id number] 05/04/2014 12:42:00 05/04/2014 23:59:59 CLS Outpatient COLLEEN WAYNE APRN Jovana [id number] 04/08/2014 16:11:00 04/08/2014 23:59:59 CLS Outpatient CHRISTA GLORIA APRN [id number] 12/08/2013 11:03:00 12/08/2013 23:59:59 CLS Outpatient CHRITSA GLORIA APRN [id number] 09/28/2013 10:06:00 09/28/2013 23:59:59 CLS Outpatient ONEYDA RUIZ APRN Meek [id number] 09/13/2013 12:07:00 09/13/2013 23:59:59 CLS Outpatient PERRI WAYNE APRNSADIE Whaley [id number] 2013 13:19:00 2013 23:59:59 CLS Outpatient LINDA DOEUGENIO [id number] 06/21/2013 16:02:00 06/21/2013 23:59:59 CLS Outpatient LINDA DOEUGENIO [id number] 05/05/2013 10:48:00 05/05/2013 23:59:59 CLS Outpatient LINDA DOEUGENIO [id number] 05/05/2013 10:48:00 05/05/2013 23:59:59 CLS Outpatient LINDA DOEUGENIO [id number] 04/19/2013 09:39:00 04/19/2013 23:59:59 CLS Outpatient LINDA DOEUGENIO [id number] 03/11/2013 14:00:00 03/11/2013 23:59:59 CLS Outpatient ROSANA IRVIN COLLEEN Whaley [id number] 02/24/2013 15:28:00 02/24/2013 23:59:59 CLS Outpatient LINDA DOEUGENIO [id number] 02/22/2013 11:28:00 02/22/2013 23:59:59 CLS Outpatient LINDA DOEUGENIO [id number] 02/22/2013 11:28:00 02/22/2013 23:59:59 CLS Outpatient LINDA DOEUGENIO [id number] 02/11/2013 16:04:00 02/11/2013 23:59:59 CLS Outpatient HERNAN CRUZ MD [id number] 01/22/2013 08:45:00 01/22/2013 23:59:59 CLS Outpatient EUGENIO LINDA DO [id number] 11/24/2012 08:59:00 11/24/2012 23:59:59 CLS Outpatient EUGENIO LINDA DO [id number] 05/12/2012 08:25:00 05/12/2012 23:59:59 CLS Outpatient EUGENIO LINDA DO [id number] 04/13/2012 09:56:00 04/13/2012 23:59:59 CLS Outpatient EUGENIO LINDA DO [id number] 04/01/2012 12:14:00 04/01/2012 23:59:59 CLS Outpatient [id number] 01/17/2012 10:03:00 01/17/2012 23:59:59 CLS Outpatient EUGENIO LINDA DO [id number] 01/17/2012 10:03:00 01/17/2012 23:59:59 CLS Outpatient [id number] 11/16/2012 14:32:00 Document Registration [id number] 10/19/2012 11:25:00 Document Registration [id number] 09/21/2012 13:09:00 Document Registration [id number] 08/10/2012 09:38:00 Document Registration [id number] 07/14/2012 15:04:00 Document Registration [id number] 07/07/2012 14:09:00 Document Registration [id number] 12/21/2016 11:07:00 Document Registration [id number] 09/11/2017 15:00:00 09/11/2017 23:59:59 CLS Outpatient CHRISTA GLORIA APRN [facility] [id number] 06/25/2017 18:40:00 Document Registration [id number] 12/20/2016 10:40:00 Document Registration [id number] 09/11/2017 10:45:00 09/11/2017 23:59:59 CLS Outpatient DEJA ZHONG APRN [facility] [id number] 08/07/2017 13:34:00 08/07/2017 17:01:00 DIS Emergency YUDI MORRISON APRN [facility], [id number] 05/24/2016 11:42:00 05/24/2016 17:03:00 DIS Emergency GAGAN CRYSTAL, SERGIO S [facility] ER RIGHT SIDE LOWER ABD PAIN/ NAUSEA [id number] 03/18/2016 12:32:00 03/18/2016 13:47:00 DIS Emergency MILTON CRYSTAL, HENRY Rodgers [facility] ER RIGHT LEG PAIN [id number] 12/29/2014 10:02:00 12/29/2014 23:59:59 CLS Preadmit EDDIE GLORIA APRN [facility] REHAB [id number] 06/30/2013 07:15:00 06/30/2013 23:59:59 CLS Outpatient KASIA CHRISTOPHER MD [facility] PREOP SCREENING [id number] 12/02/2012 11:53:00 12/02/2012 23:59:59 CLS Outpatient KASIA CHRISTOPHER MD [facility] PREOP SCREENING [id number] 11/06/2012 21:56:00 11/07/2012 06:50:00 DIS Outpatient EUGENIO LINDA DO [facility] SLEEP SNORING [id number] 12/23/2014 10:01:00 Document Registration [id number] 12/23/2014 10:01:00 Document Registration [id number] 05/06/2012 07:51:00 Document Registration [id number] 04/22/2012 09:16:00 Document Registration [id number] 02/24/2012 10:26:00 Document Registration
[2017-12-19] MEDS ORDERED: NITROGLYCERIN 0.4 MG SL TABS BTL 25'S SL ONE (08:40)
[2017-12-19] MEDS ORDERED: ASPIRIN 81 MG CHEW (CHILDREN'S ASA) ONE (08:40)
[2017-12-19 08:45] LABS: BILIRUBIN,URINE NEGATIVE (NEGATIVE); CLARITY,URINE CLEAR; COLOR,URINE YELLOW; GLUCOSE, URINE (UA) NEGATIVE (NEGATIVE); KETONES,URINE NEGATIVE (NEGATIVE); LEUKOCYTE ESTERASE ,URINE NEGATIVE (NEGATIVE); NITRITE,URINE NEGATIVE (NEGATIVE); PH,URINE 6 (5-9); PROTEIN,URINE 1+ (NEGATIVE); UROBILINOGEN,URINE NORMAL (NORMAL)
[2017-12-19] MEDS ORDERED: morphine INJ 10 MG/ML 1ML (SYR OR VIAL) ONE ×2 (08:46→09:23)
[2017-12-19 08:50] LABS: BASOPHILS % (AUTO) 0 % (0-10); EOSINOPHILS # (AUTO) 0.2 10^3/uL (0.0-0.3); EOSINOPHILS % (AUTO) 2 % (0-10); HEMATOCRIT 40 % (35-52); HEMOGLOBIN 14.1 G/DL (11.5-16.0); LYMPHOCYTES # (AUTO) 1.2 X 10^3 (1.0-4.0); LYMPHOCYTES % (AUTO) 8 % (12-44); MEAN CORPUSCULAR HEMOGLOBIN 30 PG (25-34); MEAN CORPUSCULAR HGB CONC 35 G/DL (32-36); MEAN CORPUSCULAR VOLUME 86 FL (80-99); MEAN PLATELET VOLUME 11.9 FL (7.4-10.4); MONOCYTES # (AUTO) 1.3 X 10^3 (0.0-1.0); MONOCYTES % (AUTO) 9 % (0-12); NEUTROPHILS # (AUTO) 12.4 X 10^3 (1.8-7.8); NEUTROPHILS % (AUTO) 82 % (42-75); PLATELET COUNT 200 10^3/uL (130-400); RED BLOOD COUNT 4.66 10^6/uL (4.35-5.85); RED CELL DISTRIBUTION WIDTH 14.8 % (10.0-14.5); WHITE BLOOD COUNT 15.2 10^3/uL (4.3-11.0)
[2017-12-19] MEDS ORDERED: AMIODARONE 450 MG/9 ML (CORDARONE) VIAL IV ONE (08:55)
[2017-12-19] MEDS ORDERED: AMIODARONE 150 MG/3 ML (CORDARONE) AMP IV ONE (08:55)
[2017-12-19] MEDS ORDERED: meTOprolol 5 MG/5 ML (LOPRESSOR) VIAL ONE (08:57)
[2017-12-19 08:59] LABS: BACTERIA,URINE NEGATIVE /HPF
[2017-12-19 09:05] LABS: ALANINE AMINOTRANSFERASE 24 U/L (0-55); ALBUMIN 3.7 GM/DL (3.2-4.5); ALKALINE PHOSPHATASE 70 U/L (40-136); BUN/CREATININE RATIO 16; CALCIUM 8.9 MG/DL (8.5-10.1); CARBON DIOXIDE 19 MMOL/L (21-32); CHLORIDE 102 MMOL/L (98-107); CREATININE SERUM 1.16 MG/DL (0.60-1.30); GFR ESTIMATED 46; GLUCOSE 116 MG/DL (70-105); POTASSIUM 3.7 MMOL/L (3.6-5.0); SODIUM 135 MMOL/L (135-145); TOTAL PROTEIN 6.9 GM/DL (6.4-8.2)
[2017-12-19 09:19] LABS: INR 1.1 (0.8-1.4); PROTHROMBIN TIME PATIENT 13.7 SEC (12.2-14.7)
[2017-12-19 09:22] LABS: BAND NEUTROPHILS 0 %; BASOPHILS % (MANUAL) 1 %; EOSINOPHILS % (MANUAL) 0 %; LYMPHOCYTES % (MANUAL) 7 %; MONOCYTES % (MANUAL) 7 %; NEUTROPHILS % (MANUAL) 85 %; PLATELET CLUMPS OCCASIONAL; RBC MORPH NORMAL
--- NOTE | 2017-12-19 09:22 | ED Abdominal Pain ---
General Chief Complaint: Abdominal/GI Problems Stated Complaint: ABD PAIN Source of Information: Patient Exam Limitations: No Limitations History of Present Illness Date Seen by Provider: Dec 19, 2017 Time Seen by Provider: 08:35 Initial Comments The patient is a 72-year-old white female who presented to the emergency room with complaints of low abdominal pain. She reported that this had been present for several hours. She stated she just did not feel well in general. During the course of this she complained of some pain in the right sub-costal area and an EKG was done. This showed some ST T abnormalities in leads II, III, and F aVF. A cardiogram was found from July of this year which showed relatively similar changes. She was hypertensive at presentation. She was given aspirin 325 and a nitroglycerin. The initial observation was a pulse in the high 30s. An EKG was done because of that at 0824. At 0840 ventricular bigeminy. She subsequently exhibited ventricular tachycardia which resolved spontaneously. At that point Dr. Solitario was called and came to the unit. She exhibited 2 more episodes of ventricular tachycardia and was given amiodarone and then IV Lopressor. Timing/Duration: 4-6 Hours Severity/Quality: Moderate Location: RLQ, Suprapubic Radiation: No Radiation Allergies and Home Medications Allergies Coded Allergies: No Known Drug Allergies (Verified , 10/21/08) Home Medications Aspirin 81 Mg Tabec, 81 MG PO DAILY, (Reported) Hydrocodone Bit/Acetaminophen 1 Each Tablet, 1 EACH PO Q4H PRN for PAIN, ( Reported) Hydroxychloroquine Sulfate 200 Mg Tab, 400 MG PO DAILY, (Reported) Niacin 250 Mg Tablet, 250 MG PO DAILY, (Reported) S-Adenosylmethionine Sul Tosyl 200 Mg Tablet.dr, 400 MG PO DAILY, (Reported) Patient Home Medication List Home Medication List Reviewed: Yes Review of Systems Review of Systems Constitutional: see HPI EENTM: No Symptoms Reported Cardiovascular: Lightheadedness Gastrointestinal: See HPI Genitourinary: No Symptoms Reported Musculoskeletal: no symptoms reported Skin: other (multiple ecchymoses) Psychiatric/Neurological: No Symptoms Reported Endocrine: No Symptoms Reported Hematologic/Lymphatic: No Symptoms Reported Other Comments The patient reports that she also has systemic lupus erythematosus and takes steroids and hydroxychloroquine. It is also noted from 2008 that she had aN angiogram performed by DIMITRI Brannon which showed rather extensive disease. She was referred to a [facility] cardi[facility]oracic surgeon. She reported that she did not like him and refused any further workup. Past Mavgrex-Zofqtm-Pvjedw Hx Patient Social History Alcohol Use: Denies Use Recreational Drug Use: No Smoking Status: Current Everyday Smoker Type Used: Cigarettes Recent Hopitalizations: No (REBECCA,HYST,T&A,R ANKLE PLATE&PIN,TEETH EXTRACTED) Immunizations Up To Date Date of Pneumonia Vaccine: Dec 22, 2008 Date of Influenza Vaccine: Dec 23, 2011 Past Medical History Surgeries: Yes (MODIFIED RADICAL VULVECTOMY 1991/CHOLECYSTECTOMY) Hysterectomy Respiratory: Yes Cardiac: No ("PLAQUE BUILD UP") Neurological: Yes 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 Disorders: Yes (HX OF VULVAR CA--MODIFIED RADICAL VULVECTOMY 1991) Sexually Transmitted Disease: No Gastrointestinal: Yes (DIARRHEA ) Musculoskeletal: Yes ("NO CARTILAGE IN KNEES") Endocrine: No Psychosocial: Yes Blood Disorders: No Physical Exam Vital Signs Vital Signs - First Documented 12/19/17 08:44 Temp 98.2 Pulse 61 Resp 20 B/P (MAP) 203/113 (143) Pulse Ox 98 Capillary Refill : Height/Weight/BMI Height: 5'2.00" Weight: 220lbs. oz. 99.953571va; BMI Method:Stated General Appearance: moderate distress, other (anxious) HEENT: normal ENT inspection Respiratory: other (tachypneic) Cardiovascular: other (frequent PVCs) Gastrointestinal: other (obese. Tender in the suprapubic area and right lower quadrant.) Extremities: normal range of motion, non-tender, normal inspection Neurologic/Psychiatric: production foreman II-XII nml as tested, no motor/sensory deficits, alert, normal mood/affect, oriented x 3 Skin: normal color, warm/dry Lymphatic: no adenopathy Progress/Results/Core Measures Results/Orders Lab Results Laboratory Tests Test 12/19/17 08:20 Range/Units White Blood Count 15.2 H 4.3-11.0 10^3/uL Red Blood Count 4.66 4.35-5.85 10^6/uL Hemoglobin 14.1 11.5-16.0 G/DL Hematocrit 40 35-52 % Mean Corpuscular Volume 86 80-99 FL Mean Corpuscular Hemoglobin 30 25-34 PG Mean Corpuscular Hemoglobin Concent 35 32-36 G/DL Red Cell Distribution Width 14.8 H 10.0-14.5 % Platelet Count 200 130-400 10^3/uL Mean Platelet Volume 11.9 H 7.4-10.4 FL Neutrophils (%) (Auto) 82 H 42-75 % Lymphocytes (%) (Auto) 8 L 12-44 % Monocytes (%) (Auto) 9 0-12 % Eosinophils (%) (Auto) 2 0-10 % Basophils (%) (Auto) 0 0-10 % Neutrophils # (Auto) 12.4 H 1.8-7.8 X 10^3 Lymphocytes # (Auto) 1.2 1.0-4.0 X 10^3 Monocytes # (Auto) 1.3 H 0.0-1.0 X 10^3 Eosinophils # (Auto) 0.2 0.0-0.3 10^3/uL Basophils # (Auto) 0.0 0.0-0.1 10^3/uL Neutrophils % (Manual) 85 % Lymphocytes % (Manual) 7 % Monocytes % (Manual) 7 % Eosinophils % (Manual) 0 % Basophils % (Manual) 1 % Band Neutrophils 0 % Clumped Platelets OCCASIONAL Blood Morphology Comment NORMAL Prothrombin Time 13.7 12.2-14.7 SEC INR Comment 1.1 0.8-1.4 Urine Color YELLOW Urine Clarity CLEAR Urine pH 6 5-9 Urine Specific [place] 1.015 L 1.016-1.022 Urine Protein 1+ H NEGATIVE Urine Glucose (UA) NEGATIVE NEGATIVE Urine Ketones NEGATIVE NEGATIVE Urine Nitrite NEGATIVE NEGATIVE Urine Bilirubin NEGATIVE NEGATIVE Urine Urobilinogen NORMAL NORMAL MG/DL Urine Leukocyte Esterase NEGATIVE NEGATIVE Urine RBC (Auto) NEGATIVE NEGATIVE Urine RBC NONE /HPF Urine WBC NONE /HPF Urine Squamous Epithelial Cells NONE /HPF Urine Crystals NONE /LPF Urine Bacteria NEGATIVE /HPF Urine Casts NONE /LPF Urine Mucus NEGATIVE /LPF Urine Culture Indicated NO Sodium Level 135 135-145 MMOL/L Potassium Level 3.7 3.6-5.0 MMOL/L Chloride Level 102 98-107 MMOL/L Carbon Dioxide Level 19 L 21-32 MMOL/L Anion Gap 14 5-14 MMOL/L Blood Urea Nitrogen 18 7-18 MG/DL Creatinine 1.16 0.60-1.30 MG/DL Estimat Glomerular Filtration Rate 46 BUN/Creatinine Ratio 16 Glucose Level 116 H 70-105 MG/DL Calcium Level 8.9 8.5-10.1 MG/DL Corrected Calcium 9.1 8.5-10.1 MG/DL Total Bilirubin 1.0 0.1-1.0 MG/DL Aspartate Amino Transf (AST/SGOT) 34 5-34 U/L Alanine Aminotransferase (ALT/SGPT) 24 0-55 U/L Alkaline Phosphatase 70 40-136 U/L Creatine Kinase MB 1.9 <6.6 NG/ML Myoglobin 181.1 H 10.0-92.0 NG/ML Troponin I < 0.30 <0.30 NG/ML Total Protein 6.9 6.4-8.2 GM/DL Albumin 3.7 3.2-4.5 GM/DL My Orders Orders - GUSTAVO HUTSON MD Cbc With Automated Diff (12/19/17 08:20) Comprehensive Metabolic Panel (12/19/17 08:20) Ua Culture If Indicated (12/19/17 08:20) Troponin I (12/19/17 08:27) Ekg Tracing (12/19/17 08:27) Nitroglycerin 0.4 Mg Btl 25's (Nitrostat (12/19/17 08:40) Aspirin Chewable Tablet (Baby Aspirin Ch (12/19/17 08:40) Morphine Injection (Morphine Injection (12/19/17 08:46) Manual Differential (12/19/17 08:20) Amiodarone Injection (Cordarone Injectio (12/19/17 08:55) Amiodarone For Bolus (Cordarone Bolus) (12/19/17 08:55) Metoprolol Tartrate Injection (Lopressor (12/19/17 08:57) Creatine Kinase Mb (12/19/17 09:04) Protime With Inr (12/19/17 09:04) Myoglobin Serum (12/19/17 09:04) Ct Abdomen/Pelvis W (12/19/17 09:14) Iohexol Injection (Omnipaque 350 Mg/Ml 1 (12/19/17 09:30) Ns (Ivpb) (Sodium Chloride 0.9%) (12/19/17 09:30) Morphine Injection (Morphine Injection (12/19/17 09:23) Saline Lock/Iv-Start (12/19/17 10:10) Ns Iv 1000 Ml (Sodium Chloride 0.9%) (12/19/17 10:10) Saline Lock/Iv-Start (12/19/17 10:10) Ns Iv 1000 Ml (Sodium Chloride 0.9%) (12/19/17 10:10) Medications Given in ED Current Medications Medications Dose Ordered Sig/Kenneth Route Start Time Stop Time Status Last Admin Dose Admin Amiodarone HCl 150 mg STK-MED ONCE IV 12/19/17 08:55 12/19/17 09:00 DC 12/19/17 09:00 150 MG Aspirin 81 mg STK-MED ONCE .ROUTE 12/19/17 08:40 12/19/17 08:45 DC 12/19/17 08:44 324 MG Iohexol 100 ml ONCE ONCE IV 12/19/17 09:30 12/19/17 09:31 DC 12/19/17 09:34 100 ML Metoprolol Tartrate 5 mg STK-MED ONCE .ROUTE 12/19/17 08:57 12/19/17 09:02 DC 12/19/17 09:01 5 MG Morphine Sulfate 10 mg STK-MED ONCE .ROUTE 12/19/17 08:46 12/19/17 08:51 DC 12/19/17 08:51 5 MG Morphine Sulfate 10 mg STK-MED ONCE .ROUTE 12/19/17 09:23 12/19/17 09:27 DC 12/19/17 09:27 10 MG Nitroglycerin 0.4 mg STK-MED ONCE SL 12/19/17 08:40 12/19/17 08:45 DC 12/19/17 08:44 0.4 MG Sodium Chloride 1,000 ml @ 0 mls/hr Q0M ONCE IV 12/19/17 10:10 12/19/17 10:12 DC 12/19/17 08:45 0 MLS/HR Sodium Chloride 1,000 ml @ 0 mls/hr Q0M ONCE IV 12/19/17 10:10 12/19/17 10:12 DC 12/19/17 09:50 0 MLS/HR Vital Signs/I&O 12/19/17 08:44 Temp 98.2 Pulse 61 Resp 20 B/P (MAP) 203/113 (143) Pulse Ox 98 Departure Communication (Admissions) 1053 CT scan of abdomen and pelvis showed diffuse arterial disease. No blood flow was noted to the right kidney consistent with embolus. This was discussed with Dr. Solitario here in the unit and it was concluded that given the ventricular tachycardia, the embolus to the right kidney. And the diffuse vascular disease it would be more prudent to transfer to a higher level of care. Accordingly I spoke to [facility] one call and to their hospitalist Dr. Chris. She was accepted in transfer to their ICU. Impression Primary Impression: abdominal pain Additional Impressions: embolus right kidney recurrent ventricular tachycardia Disposition: XFER SHT-TRM HOSP Condition: Stable/Unchanged Transfer Time Spoke to Accepting Phy: 10:48 Transfer Progress Notes Spoke to hospitalist at [facility]. The patient was accepted in transfer to their ICU. Departure-Patient Inst. Referrals: [facility] – [place] (PCP/Family) Primary Care Physician GUSTAVO HUTSON MD Dec 19, 2017 09:22
[2017-12-19 09:24] LABS: CREATINE KINASE MB 1.9 NG/ML (<6.6); MYOGLOBIN SERUM 181.1 NG/ML (10.0-92.0)
[2017-12-19] MEDS ORDERED: IOHEXOL 350 MG/ML 100 ML (OMNIPAQUE 350) VIAL IV ONE (09:30)
[2017-12-19] MEDS ORDERED: NS 250 ML (IVPB) BAG IV ONE (09:30)
--- NOTE | 2017-12-19 10:05 | Diagnostic Imaging Report ---
PROCEDURE: CT abdomen and pelvis with contrast. TECHNIQUE: Multiple contiguous axial images were obtained through the abdomen and pelvis after administration of intravenous contrast. INDICATION: Right lower abdominal pain. Back pain. Ventricular tachycardia. Comparison: 05/24/2016 Findings: Included portions of the lung bases show diffuse prominence of the interstitium. 5-6 mm subpleural micronodule is noted within the lateral margins of the right lower lobe (image 9, series 2). This is stable compared to 05/24/2016. Moderate hiatal hernia is noted. CT abdomen: There is diffuse calcified atherosclerotic disease of the aorta. There is also significant diffuse mural thrombus. Since the previous exam, there has been interval development of occlusion of the right renal artery. As a result, there is marked abnormal diminished enhancement of the right kidney. There is some patchy delayed enhancement noted on the delayed phase. Left kidney continues to have a normal appearance. Benign right renal cysts are noted. Bilateral adrenal glands, spleen, pancreas, and liver have a normal CT appearance. The superior mesenteric artery and celiac artery are patent. Small bowel loops are nondistended. Normal appendix is identified. Patient is status post previous ventral hernia repair. There is no evidence of recurrent or residual ventral wall hernia. There is no loculated fluid collection, free fluid, nor free air within the abdomen. No abnormal mesenteric or retroperitoneal adenopathy is seen. Bony structures show no acute abnormalities. CT pelvis: Gonzalez catheter is present within the urinary bladder. Urinary bladder is minimally distended, but is otherwise grossly unremarkable. There is no loculated fluid collection, free fluid, or free air within the pelvis. Note is made of lack of excreted contrast within the right renal collecting system. No abnormal pelvic adenopathy is identified. Bony structures show no acute abnormalities. IMPRESSION: 1. 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 2. Advanced diffuse calcified atherosclerotic disease and diffuse mural thrombus of the abdominal aorta. 3. Normal appendix. 4. Micronodule in the right lower lobe measuring 5-6 mm. Again, this is stable compared to 05/24/2016. Dictated by: Dictated on workstation # [id number]
[2017-12-19] MEDS ORDERED: NS IV 1000 ML 1,000 ML IV ONE ×2 (10:10)
[2017-12-19 12:27] VITALS: BP 158/71
== END 2017-12-19 12:27 | disposition short-term general hospital (02) ==
LOC: EDUNIT# 08:02 → ER 08:03
DX: N28.0 Ischemia and infarction of kidney (principal); I47.2 Ventricular tachycardia; F17.210 Nicotine dependence, cigarettes, uncomplicated; Z90.49 Acquired absence of other specified parts of digestive tract; Z90.79 Acquired absence of other genital organ(s); Z90.710 Acquired absence of both cervix and uterus; Z79.82 Long term (current) use of aspirin
CPT/HCPCS: 36415; 51702; 74177; 80053; 81000; 82553; 83605; 83874; 84484; 85007; 85027; 85610; 87040; 93005

== ENCOUNTER 2018-02-12 00:36 | Emergency (ER) | payer MEDICARE ==
[~2018-02-12] VITALS: Ht 152.4 cm; Wt 84.8 kg
[2018-02-12 01:14] LABS: BILIRUBIN,URINE NEGATIVE (NEGATIVE); COLOR,URINE YELLOW; GLUCOSE, URINE (UA) NEGATIVE (NEGATIVE); KETONES,URINE NEGATIVE (NEGATIVE); LEUKOCYTE ESTERASE ,URINE 2+ (NEGATIVE); NITRITE,URINE NEGATIVE (NEGATIVE); PH,URINE 5 (5-9); PROTEIN,URINE 2+ (NEGATIVE); UROBILINOGEN,URINE 1 MG/DL (NORMAL)
[2018-02-12 01:24] LABS: BASOPHILS % (AUTO) 0 % (0-10); EOSINOPHILS % (AUTO) 0 % (0-10); HEMATOCRIT 38 % (35-52); HEMOGLOBIN 12.4 G/DL (11.5-16.0); LYMPHOCYTES # (AUTO) 1.2 X 10^3 (1.0-4.0); LYMPHOCYTES % (AUTO) 12 % (12-44); MEAN CORPUSCULAR HEMOGLOBIN 29 PG (25-34); MEAN CORPUSCULAR HGB CONC 32 G/DL (32-36); MEAN CORPUSCULAR VOLUME 91 FL (80-99); MEAN PLATELET VOLUME 10.3 FL (7.4-10.4); MONOCYTES # (AUTO) 0.5 X 10^3 (0.0-1.0); MONOCYTES % (AUTO) 5 % (0-12); NEUTROPHILS # (AUTO) 8.2 X 10^3 (1.8-7.8); NEUTROPHILS % (AUTO) 83 % (42-75); PLATELET COUNT 281 10^3/uL (130-400); RED BLOOD COUNT 4.24 10^6/uL (4.35-5.85); RED CELL DISTRIBUTION WIDTH 15.5 % (10.0-14.5); WHITE BLOOD COUNT 9.9 10^3/uL (4.3-11.0)
--- NOTE | 2018-02-12 01:25 | ED GU-Female ---
General Stated Complaint: BLOOD IN URINE Source: patient History of Present Illness Date Seen by Provider: Feb 12, 2018 Time Seen by Provider: 01:00 Initial Comments PT ARRIVES VIA POV FROM HOME PT STATES THAT JUST PRIOR TO ARRIVAL SHE WENT TO THE BATHROOM TO URINATE AND THERE WAS BLOOD ON THE TISSUE WHEN SHE WIPED, SO CAME STRAIGHT HERE ON VOIDING HERE, THERE IS NO BLOOD NO PAIN ON URINATION TONIGHT, BUT OCCASIONALLY DOES HAVE SOME SLIGHT BURNING NO ABDOMINAL OR FLANK PAIN OR BACK PAIN NO FEVER NO NAUSEA/VOMITING HAD NORMAL BM TODAY--STOOLS ALWAYS LOOSE SINCE CHOLECYSTECTOMY NO HISTORY OF SIMILAR PT STATES SHE IS ON A BLOOD THINNER AND ONLY HAS 1 KIDNEY SO GOT WORRIED. PT WAS SEEN HERE 12/19/17 FOR C/O ABDOMINAL PAIN AND WAS FOUND TO HAVE BRADYCARDIA IN 30'S WITH RUNS OF V-TACH. WAS ALSO FOUND TO HAVE NO BLOOD FLOW TO RIGHT KIDNEY DUE TO THROMBUS. WAS TRANSFERRED TO [facility]--NO SURGERY DONE PT HAS SEEN DR. BLACK ON 01/30 FOR FOLLOW UP. NO CHANGE IN MEDICATIONS. PCP: FREDDY-KENNEDY, [facility] ADMINISTRATOR:DR. CARVALHO Allergies and Home Medications Allergies Coded Allergies: No Known Drug Allergies (Verified , 10/21/08) Home Medications Aspirin 81 Mg Tabec, 81 MG PO DAILY, (Reported) Hydrocodone Bit/Acetaminophen 1 Each Tablet, 1 EACH PO Q4H PRN for PAIN, ( Reported) Hydroxychloroquine Sulfate 200 Mg Tab, 400 MG PO DAILY, (Reported) Niacin 250 Mg Tablet, 250 MG PO DAILY, (Reported) S-Adenosylmethionine Sul Tosyl 200 Mg Tablet.dr, 400 MG PO DAILY, (Reported) Patient Home Medication List Home Medication List Reviewed: Yes Review of Systems Review of Systems Constitutional: no symptoms reported Respiratory: no symptoms reported Cardiovascular: no symptoms reported Gastrointestinal: no symptoms reported Genitourinary: see HPI, burning, dysuria; denies frequency, denies flank pain; hematuria; denies pain, denies urgency Musculoskeletal: no symptoms reported Skin: no symptoms reported Psychiatric/Neurological: No Symptoms Reported Endocrine: No Symptoms Reported Hematologic/Lymphatic: No Symptoms Reported Past Puwoxpl-Ldpiqq-Hsjwqd Hx Patient Social History Alcohol Use: Regular Use Recreational Drug Use: No Smoking Status: Current Everyday Smoker (1 PPD) Type Used: Cigarettes Recent Foreign Travel: No Contact w/Someone Who Travel: No Recent Hopitalizations: No (QUEENIE FERNANDEZST,T&A,R ANKLE PLATE&PIN,TEETH EXTRACTED) Immunizations Up To Date Date of Pneumonia Vaccine: Dec 22, 2008 Date of Influenza Vaccine: Dec 23, 2011 Past Medical History Surgeries: Yes (MODIFIED RADICAL VULVECTOMY 1991; HYST/BSO; CHOLECYSTECTOMY; RIGHT ANKLE FX/ORIF; CARDIAC CATH > 10 YEARS AGO, NO INTERVENTION; VENTRAL HERNIA REPAIR) Abdominal, Adenoidectomy, Cardiac, Gallbladder, Hysterectomy, Oophorectomy, Orthopedic, Tonsillectomy Respiratory: Yes (SMOKER) Cardiac: Yes ("PLAQUE BUILD UP"; ASVD; RIGHT RENAL ARTERY THROMBUS; BRADYCARDIA -VENTRICULAR TACHYCARDIA) Coronary Artery Disease, Hypertension Neurological: No 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 Disorders: Yes (HX OF VULVAR CA--MODIFIED RADICAL VULVECTOMY 1991) 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, 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 Sexually Transmitted Disease: No Genitourinary: Yes (RIGHT RENAL ARTERY THROMBUS) Gastrointestinal: Yes (DIARRHEA POST CHOLECYSTECTOMY) Chronic Diarrhea, Gall Bladder Disease Musculoskeletal: Yes ("NO CARTILAGE IN KNEES") Arthritis Endocrine: Yes Lupus HEENT: No 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 oz. 90.102389hy; BMI Method:Stated General Appearance: no apparent distress, other (STRONG ODOR OF CIGARETTES) Neck: normal inspection Cardiovascular: normal peripheral pulses, regular rate, rhythm, no edema, no JVD, no murmur Respiratory: normal breath sounds, no respiratory distress Gastrointestinal: normal bowel sounds, non tender, soft, no organomegaly Back: no CVA tenderness Extremities: normal inspection, no pedal edema, normal capillary refill Neurologic/Psychiatric: overage shortage and damage clerk II-XII nml as tested, no motor/sensory deficits, alert, normal mood/affect, oriented x 3 Skin: normal color, warm/dry Progress/Results/Core Measures Suspected Sepsis SIRS Temperature: Pulse: Respiratory Rate: Laboratory Tests 02/12/18 01:15: White Blood Count 9.9 Blood Pressure / Mean: Laboratory Tests 02/12/18 01:15: Creatinine 1.66H, INR Comment 1.4, Platelet Count 281, Total Bilirubin 0.4 Results/Orders Lab Results Laboratory Tests Test 02/12/18 00:50 02/12/18 01:15 Range/Units Urine Color YELLOW Urine Clarity SL CLOUDY Urine pH 5 5-9 Urine Specific [place] 1.025 H 1.016-1.022 Urine Protein 2+ H NEGATIVE Urine Glucose (UA) NEGATIVE NEGATIVE Urine Ketones NEGATIVE NEGATIVE Urine Nitrite NEGATIVE NEGATIVE Urine Bilirubin NEGATIVE NEGATIVE Urine Urobilinogen 1 NORMAL MG/DL Urine Leukocyte Esterase 2+ H NEGATIVE Urine RBC (Auto) 5+ H NEGATIVE Urine RBC 2-5 H /HPF Urine WBC 2-5 /HPF Urine Squamous Epithelial Cells 2-5 /HPF Urine Crystals NONE /LPF Urine Bacteria MODERATE H /HPF Urine Casts NONE /LPF Urine Mucus NEGATIVE /LPF Urine Culture Indicated YES White Blood Count 9.9 4.3-11.0 10^3/uL Red Blood Count 4.24 L 4.35-5.85 10^6/uL Hemoglobin 12.4 11.5-16.0 G/DL Hematocrit 38 35-52 % Mean Corpuscular Volume 91 80-99 FL Mean Corpuscular Hemoglobin 29 25-34 PG Mean Corpuscular Hemoglobin Concent 32 32-36 G/DL Red Cell Distribution Width 15.5 H 10.0-14.5 % Platelet Count 281 130-400 10^3/uL Mean Platelet Volume 10.3 7.4-10.4 FL Neutrophils (%) (Auto) 83 H 42-75 % Lymphocytes (%) (Auto) 12 12-44 % Monocytes (%) (Auto) 5 0-12 % Eosinophils (%) (Auto) 0 0-10 % Basophils (%) (Auto) 0 0-10 % Neutrophils # (Auto) 8.2 H 1.8-7.8 X 10^3 Lymphocytes # (Auto) 1.2 1.0-4.0 X 10^3 Monocytes # (Auto) 0.5 0.0-1.0 X 10^3 Eosinophils # (Auto) 0.0 0.0-0.3 10^3/uL Basophils # (Auto) 0.0 0.0-0.1 10^3/uL Prothrombin Time 17.5 H 12.2-14.7 SEC INR Comment 1.4 0.8-1.4 Activated Partial Thromboplast Time 25 24-35 SEC Sodium Level 141 135-145 MMOL/L Potassium Level 4.3 3.6-5.0 MMOL/L Chloride Level 110 H 98-107 MMOL/L Carbon Dioxide Level 17 L 21-32 MMOL/L Anion Gap 14 5-14 MMOL/L Blood Urea Nitrogen 29 H 7-18 MG/DL Creatinine 1.66 H 0.60-1.30 MG/DL Estimat Glomerular Filtration Rate 31 BUN/Creatinine Ratio 17 Glucose Level 120 H 70-105 MG/DL Calcium Level 9.0 8.5-10.1 MG/DL Corrected Calcium 9.1 8.5-10.1 MG/DL Total Bilirubin 0.4 0.1-1.0 MG/DL Aspartate Amino Transf (AST/SGOT) 18 5-34 U/L Alanine Aminotransferase (ALT/SGPT) 19 0-55 U/L Alkaline Phosphatase 77 40-136 U/L Total Protein 6.5 6.4-8.2 GM/DL Albumin 3.9 3.2-4.5 GM/DL My Orders Orders - KEITH FERNANDEZ K DO Ua Culture If Indicated (02/12/18 00:53) Ct Abd/Pelvis Wo(Kidney Stone) (02/12/18 01:10) Abdomen/Kub 1view (02/12/18 01:10) Cbc With Automated Diff (02/12/18 01:10) Comprehensive Metabolic Panel (02/12/18 01:10) Protime With Inr (02/12/18 01:10) Partial Thromboplastin Time (02/12/18 01:10) Urine Culture (02/12/18 00:50) Vital Signs/I&O 02/12/18 00:46 Temp 97.3 Pulse 99 Resp 20 B/P (MAP) 194/95 (128) Pulse Ox 98 O2 Delivery Room Air Capillary Refill : Progress Note : Progress Note NO SYMPTOMS DURING ER STAY BP DOWN AT DISMISSAL Diagnostic Imaging Comments KUB--NO ACUTE PROCESS, PENDING RADIOLOGIST REVIEW CT ABDOMEN/PELVIS--NO ACUTE PROCESS, CHRONIC /STABLE FINDINGS--PER [facility] VIA FAX @ [phone] Reviewed: Reviewed by Me Departure Impression Primary Impression: UTI WITH MICROSCOPIC HEMATURIA Disposition: HOME, SELF-CARE Condition: Stable Departure-Patient Inst. Referrals: [facility] (PCP/Family) Primary Care Physician Patient Instructions: Urinary Tract Infection, Adult (DC) Add. Discharge Instructions: LOTS OF CLEAR LIQUIDS TAKE YOUR REGULAR MEDICATIONS PRESCRIBED FOLLOW UP WITH YOUR DR NEXT WEEK FOR RECHECK RETURN TO ER IF SYMPTOMS WORSEN Scripts Nitrofurantoin Monohyd/M-Cryst (Macrobid 100 mg Capsule) 100 Mg Capsule 100 MG PO BID, #20 CAP Prov: KEITH FERNANDEZ DO 02/12/18 KEITH FERNANDEZ DO Feb 12, 2018 01:25
[2018-02-12 01:28] LABS: CLARITY,URINE SL CLOUDY
[2018-02-12 01:29] LABS: BACTERIA,URINE MODERATE /HPF
[2018-02-12 01:34] LABS: INR 1.4 (0.8-1.4); PROTHROMBIN TIME PATIENT 17.5 SEC (12.2-14.7)
[2018-02-12 01:43] LABS: ALBUMIN 3.9 GM/DL (3.2-4.5); BILIRUBIN,TOTAL 0.4 MG/DL (0.1-1.0); CREATININE SERUM 1.66 MG/DL (0.60-1.30); POTASSIUM 4.3 MMOL/L (3.6-5.0); TOTAL PROTEIN 6.5 GM/DL (6.4-8.2)
[2018-02-12] MEDS ORDERED: NITR-65 PO (02:18)
[2018-02-12] MEDS ORDERED: RX-NITROFURANTOIN 100 MG (MACROBID) CAP PPK#2 PO STA (02:18)
[2018-02-12] MEDS ORDERED: RX-NITROFURANTOIN 100 MG (MACROBID) CAP PPK#2 PO ONE (02:23)
[2018-02-12 02:30] VITALS: BP 178/97
--- NOTE | 2018-02-12 07:16 | Diagnostic Imaging Report ---
PROCEDURE: CT urinary tract, rule out kidney stone. TECHNIQUE: Multiple contiguous axial images were obtained through the abdomen and pelvis without the use of intravenous contrast. INDICATION: Hematuria. COMPARISON: Multiple priors, most recent performed on 12/19/2017. FINDINGS: No suspicious change in 5 mm right lower lobe pulmonary nodule dating back to 2010, presumed benign. The lung bases are otherwise clear. The visualized heart is normal in size. Mild coronary artery calcification is demonstrated. Calcified granulomas are scattered throughout the liver and spleen. The gallbladder is surgically absent. There is a calcification in the region of the head of the pancreas that is not significantly changed dating back to 2010. No biliary ductal dilatation. There is mild atrophy of the pancreas. No pancreatic duct dilatation. The adrenal glands are normal. There is marked atrophy of the right kidney. Unchanged right renal cyst. No renal calculus or hydronephrosis on either side. Renal vascular calcifications are demonstrated. The visualized ureters are normal. Small bowel and colon are normal in course and caliber, without evidence of wall thickening or obstruction. The appendix is normal. There is mild colon diverticulosis, without evidence of acute diverticulitis. No pneumoperitoneum, abdominal free fluid, or loculated collection. Unchanged small hiatal hernia. No lymphadenopathy. The bladder is normal, within limits of underdistention. The uterus is surgically absent. No adnexal mass or pelvic free fluid. There is marked calcified atherosclerotic plaque of the abdominal aorta, without aneurysmal dilatation. Mesh tacks are demonstrated along the anterior abdominal wall, without evidence of hernia. There is marked multilevel degenerative change of the spine. There is also advanced degenerative change of the right hip. No acute osseous abnormality. IMPRESSION: No acute abdominal or pelvic pathology. No hydronephrosis or renal calculus. Chronic changes, as detailed above. Findings are in agreement with initial teleradiology report. Dictated by: Dictated on workstation # [id number]
--- NOTE | 2018-02-12 07:38 | Diagnostic Imaging Report ---
Indication: Followup hematuria. Comparison: None. Discussion: Single view of the abdomen and pelvis were obtained. Postoperative changes of previous hernia repair within the abdominal wall is noted. The gallbladder appears to be surgically absent. Normal bowel gas pattern. Advanced degenerative disease and levoscoliosis is noted within the lumbar spine. Advanced degenerative disease is also present within the right hip. No pathologic calcification identified. Impression: 1. No acute abnormality identified. Dictated by: Dictated on workstation # [id number]
== END 2018-02-12 02:35 | disposition home or self-care (01) ==
LOC: EDUNIT# 00:36 → ER 00:40
DX: N39.0 Urinary tract infection, site not specified (principal); I25.10 Atherosclerotic heart disease of native coronary artery without angina pectoris; I10 Essential (primary) hypertension; F41.9 Anxiety disorder, unspecified; F32.9 Major depressive disorder, single episode, unspecified; M32.9 Systemic lupus erythematosus, unspecified; F17.210 Nicotine dependence, cigarettes, uncomplicated; Z85.41 Personal history of malignant neoplasm of cervix uteri; Z85.44 Personal history of malignant neoplasm of other female genital organs; Z79.82 Long term (current) use of aspirin; Z90.710 Acquired absence of both cervix and uterus; Z98.890 Other specified postprocedural states; Z90.89 Acquired absence of other organs; Z90.49 Acquired absence of other specified parts of digestive tract; Z79.01 Long term (current) use of anticoagulants; Z90.79 Acquired absence of other genital organ(s); Z87.19 Personal history of other diseases of the digestive system; Z90.5 Acquired absence of kidney
CPT/HCPCS: 36415; 74018; 74176; 80053; 81000; 85025; 85610; 85730; 87088

== ENCOUNTER 2018-05-09 18:22 | Emergency (ER) | payer MEDICARE ==
[~2018-05-09] VITALS: Ht 152.4 cm; Wt 81.6 kg
[~2018-05-09 18:22] MED LIST changes: +NITR-65 PO
[2018-05-09 21:12] LABS: BASOPHILS % (AUTO) 0 % (0-10); EOSINOPHILS # (AUTO) 0.2 10^3/uL (0.0-0.3); EOSINOPHILS % (AUTO) 2 % (0-10); HEMATOCRIT 44 % (35-52); HEMOGLOBIN 14.4 G/DL (11.5-16.0); LYMPHOCYTES # (AUTO) 1.6 X 10^3 (1.0-4.0); LYMPHOCYTES % (AUTO) 13 % (12-44); MEAN CORPUSCULAR HEMOGLOBIN 29 PG (25-34); MEAN CORPUSCULAR HGB CONC 33 G/DL (32-36); MEAN CORPUSCULAR VOLUME 88 FL (80-99); MEAN PLATELET VOLUME 11.5 FL (7.4-10.4); MONOCYTES # (AUTO) 1.2 X 10^3 (0.0-1.0); MONOCYTES % (AUTO) 9 % (0-12); NEUTROPHILS # (AUTO) 9.8 X 10^3 (1.8-7.8); NEUTROPHILS % (AUTO) 77 % (42-75); PLATELET COUNT 299 10^3/uL (130-400); RED CELL DISTRIBUTION WIDTH 13.5 % (10.0-14.5); WHITE BLOOD COUNT 12.8 10^3/uL (4.3-11.0)
[2018-05-09 21:32] LABS: ALBUMIN 3.7 GM/DL (3.2-4.5); BILIRUBIN,TOTAL 0.6 MG/DL (0.1-1.0); CALCIUM 9.9 MG/DL (8.5-10.1); CREATININE SERUM 1.62 MG/DL (0.60-1.30); POTASSIUM 2.7 MMOL/L (3.6-5.0); TOTAL PROTEIN 7.1 GM/DL (6.4-8.2); URIC ACID 7.8 MG/DL (2.6-7.2)
--- NOTE | 2018-05-09 21:37 | Diagnostic Imaging Report ---
INDICATION: Ankle pain and swelling. COMPARISON: None available. TECHNIQUE: Three views of the left ankle. FINDINGS: Moderate soft tissue swelling about the ankle. A large ankle joint effusion is present. There are potential erosions involving the anterior aspect of the tibial plafond. No fracture. Advanced degenerative changes in the tibiotalar joint are noted. Large plantar calcaneal spur. 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 Superimposed infection or gout could be present in the appropriate setting. Dictated by: Dictated on workstation # [id number]
--- NOTE | 2018-05-09 21:43 | ED Lower Extremity ---
General Chief Complaint: Lower Extremity Stated Complaint: VOMITING/L LEG PAIN Nursing Triage Note: PT VERBALIZED LT ANKLE PAIN. STATES UNABLE TO BARE WEIGHT ON LEFT FOOT. PT STATES SHE ASLO HAS BEEN V/D X 4 DAYS. ALSO Nursing Sepsis Screen: No Definite Risk Source: patient Exam Limitations: no limitations History of Present Illness Date Seen by Provider: May 09, 2018 Time Seen by Provider: 20:38 Initial Comments 72-year-old female who presents to the emergency room with complaints of left ankle pain and difficulty bearing weight on the left foot. She reports that the pain started this morning upon waking up. She also reports that she's had nausea , vomiting, and diarrhea the past 4 days. She denies fever, shortness of breath , or chest pain. She reports history of gout. Onset: this morning Pain/Injury Location: left ankle Method of Injury: unknown Modifying Factors: Worse With Movement Allergies and Home Medications Allergies Coded Allergies: No Known Drug Allergies (Verified , 10/21/08) Home Medications Aspirin 81 Mg Tabec, 81 MG PO DAILY, (Reported) Hydrocodone Bit/Acetaminophen 1 Each Tablet, 1 EACH PO Q4H PRN for PAIN, ( Reported) Hydroxychloroquine Sulfate 200 Mg Tab, 400 MG PO DAILY, (Reported) Niacin 250 Mg Tablet, 250 MG PO DAILY, (Reported) Nitrofurantoin Monohyd/M-Cryst 100 Mg Capsule, 100 MG PO BID Prescribed by: KEITH FERNANDEZ on 02/12/18 0218 Ondansetron HCl 4 Mg Tab, 4 MG PO Q4H PRN for NAUSEA/VOMITING-1ST LINE Prescribed by: MICKEY KENNEDY on 05/09/18 2226 S-Adenosylmethionine Sul Tosyl 200 Mg Tablet.dr, 400 MG PO DAILY, (Reported) Patient Home Medication List Home Medication List Reviewed: Yes Review of Systems Constitutional: no symptoms reported, see HPI Musculoskeletal: see HPI, joint pain (left ankle and samuels pain. ) All Other Systems Reviewed Negative Unless Noted: Yes Past Gukcwlv-Enniev-Rgzces Hx Past Med/Social Hx: Reviewed Nursing Past Med/Soc Hx Patient Social History Alcohol Use: Denies Use Recreational Drug Use: No Type Used: Cigarettes 2nd Hand Smoke Exposure: Yes Recent Foreign Travel: No Contact w/Someone Who Travel: No Recent Infectious Disease Expo: No Recent Hopitalizations: No (REBECCA,HYST,T&A,R ANKLE PLATE&PIN,TEETH EXTRACTED) Immunizations Up To Date Date of Pneumonia Vaccine: Dec 22, 2008 Date of Influenza Vaccine: Dec 23, 2011 Past Medical History Surgeries: Yes Abdominal, Adenoidectomy, Cardiac, Gallbladder, Hysterectomy, Oophorectomy, Orthopedic, Tonsillectomy Respiratory: Yes (SMOKER) Cardiac: Yes Coronary Artery Disease, Hypertension Neurological: No 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 Disorders: Yes (HX OF VULVAR CA--MODIFIED RADICAL VULVECTOMY 1991) 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, 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 Sexually Transmitted Disease: No Genitourinary: Yes (RIGHT RENAL ARTERY THROMBUS) Gastrointestinal: Yes (DIARRHEA POST CHOLECYSTECTOMY) Chronic Diarrhea, Gall Bladder Disease Musculoskeletal: Yes ("NO CARTILAGE IN KNEES") Arthritis Endocrine: Yes Lupus HEENT: No 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 oz. 81.717178nl; BMI Method:Stated General Appearance: WD/WN, no apparent distress Cardiovascular: normal peripheral pulses, regular rate, rhythm, no edema, no gallop, no JVD, no murmur Respiratory: chest non-tender, lungs clear, normal breath sounds, no respiratory distress, no accessory muscle use Gastrointestinal: normal bowel sounds, non tender, soft, no organomegaly, no pulsatile mass Ankles: right ankle non-tender, right ankle normal inspection, right ankle normal range of motion; left ankle pain, left ankle swelling, left ankle other ( Erythema to the ankle, no calf tenderness, negative homans sign. ) Feet: bilateral foot non-tender, bilateral foot normal inspection, bilateral foot normal range of motion Neurologic/Tendon: normal sensation, normal motor functions, normal tendon functions, responds to pain, no evidence tendon injury Neurologic/Psychiatric: alert, normal mood/affect, oriented x 3 Skin: normal color, warm/dry Progress/Results/Core Measures Results/Orders Lab Results Laboratory Tests Test 05/09/18 21:06 Range/Units White Blood Count 12.8 H 4.3-11.0 10^3/uL Red Blood Count 4.98 4.35-5.85 10^6/uL Hemoglobin 14.4 11.5-16.0 G/DL Hematocrit 44 35-52 % Mean Corpuscular Volume 88 80-99 FL Mean Corpuscular Hemoglobin 29 25-34 PG Mean Corpuscular Hemoglobin Concent 33 32-36 G/DL Red Cell Distribution Width 13.5 10.0-14.5 % Platelet Count 299 130-400 10^3/uL Mean Platelet Volume 11.5 H 7.4-10.4 FL Neutrophils (%) (Auto) 77 H 42-75 % Lymphocytes (%) (Auto) 13 12-44 % Monocytes (%) (Auto) 9 0-12 % Eosinophils (%) (Auto) 2 0-10 % Basophils (%) (Auto) 0 0-10 % Neutrophils # (Auto) 9.8 H 1.8-7.8 X 10^3 Lymphocytes # (Auto) 1.6 1.0-4.0 X 10^3 Monocytes # (Auto) 1.2 H 0.0-1.0 X 10^3 Eosinophils # (Auto) 0.2 0.0-0.3 10^3/uL Basophils # (Auto) 0.0 0.0-0.1 10^3/uL Prothrombin Time 19.7 H 12.2-14.7 SEC INR Comment 1.7 H 0.8-1.4 Activated Partial Thromboplast Time 41 H 24-35 SEC D-Dimer 2.44 H 0.00-0.49 UG/ML Sodium Level 139 135-145 MMOL/L Potassium Level 2.7 L 3.6-5.0 MMOL/L Chloride Level 101 98-107 MMOL/L Carbon Dioxide Level 22 21-32 MMOL/L Anion Gap 16 H 5-14 MMOL/L Blood Urea Nitrogen 19 H 7-18 MG/DL Creatinine 1.62 H 0.60-1.30 MG/DL Estimat Glomerular Filtration Rate 31 BUN/Creatinine Ratio 12 Glucose Level 90 70-105 MG/DL Uric Acid 7.8 H 2.6-7.2 MG/DL Calcium Level 9.9 8.5-10.1 MG/DL Corrected Calcium 10.1 8.5-10.1 MG/DL Total Bilirubin 0.6 0.1-1.0 MG/DL Aspartate Amino Transf (AST/SGOT) 26 5-34 U/L Alanine Aminotransferase (ALT/SGPT) 24 0-55 U/L Alkaline Phosphatase 111 40-136 U/L C-Reactive Protein High Sensitivity 7.69 H 0.00-0.50 MG/DL Total Protein 7.1 6.4-8.2 GM/DL Albumin 3.7 3.2-4.5 GM/DL My Orders Orders - MICKEY KENNEDY Comprehensive Metabolic Panel (05/09/18 20:38) Cbc With Automated Diff (05/09/18 20:38) Fibrin Degradation Products (05/09/18 20:38) Ankle, Left, 3 Views (05/09/18 20:38) Hs C Reactive Protein (05/09/18 21:06) Uric Acid (05/09/18 21:06) Protime With Inr (05/09/18 21:39) Partial Thromboplastin Time (05/09/18 21:39) Enoxaparin Injection (Lovenox Injection) (05/09/18 21:45) Colchicine Tablet (Colcrys Tablet) (05/09/18 21:45) Ondansetron Oral Dissolve Tab (Zofran (05/09/18 23:00) Ondansetron Oral Dissolve Tab (Zofran (05/09/18 22:52) Medications Given in ED Current Medications Medications Dose Ordered Sig/Kenneth Route Start Time Stop Time Status Last Admin Dose Admin Colchicine 1.8 mg ONCE ONCE PO 05/09/18 21:45 05/09/18 21:46 DC 05/09/18 22:50 1.8 MG Enoxaparin Sodium 80 mg ONCE ONCE SC 05/09/18 21:45 05/09/18 21:46 DC 05/09/18 22:07 80 MG Ondansetron HCl 8 mg ONCE ONCE PO 05/09/18 23:00 05/09/18 23:01 DC 05/09/18 22:58 8 MG Vital Signs/I&O 05/09/18 05/09/18 19:00 22:58 Temp 98.7 Pulse 105 100 Resp 18 14 B/P (MAP) 159/83 (108) 146/68 (94) Pulse Ox 97 97 O2 Delivery Room Air Room Air Blood Pressure Mean: 108 Progress Progress Note : Time: 22:23 Progress Note I have seen and evaluated the patient. I have informed her of her imaging studies and laboratory results. She has been treated for gout and given a dose of Lovenox for potential DVT. I have scheduled an US of the lower left extremity for tomorrow morning at 0845 to rule out DVT. I believe this is a gout flare up given patients history of gout and elevated uric acid. I am ruling out DVT and if symptoms persist she was instructed to return back to the ER for further evaluation for possible infection. She agrees with plan of care, plans for discharge, return precautions were given. Departure Impression Primary Impression: possible DVT Additional Impressions: Nausea vomiting and diarrhea Gout attack Disposition: HOME, SELF-CARE Condition: Stable/Unchanged Departure-Patient Inst. Decision time for Depature: 22:23 Referrals: [facility] (PCP/Family) Primary Care Physician Patient Instructions: Deep Vein Thrombosis (Blood Clots in the Legs) (DC), Gout (DC), Viral Gastroenteritis, Adult (DC) Add. Discharge Instructions: Take medications as directed. Take your colchicine tablet when you get home. Return back to the hospital tomorrow morning at 8:45am for your ultrasound. Check-in at the emergency room window. Follow-up with your primary care provider within 1 week for a recheck, call Friday for an appointment time.. Return back to the emergency room for worsening symptoms or concerns as needed. All discharge instructions reviewed with patient and/or family. Voiced understanding. Scripts Ondansetron HCl (Zofran) 4 Mg Tab 4 MG PO Q4H PRN for NAUSEA/VOMITING-1ST LINE, #14 TAB Prov: MICKEY KENNEDY 05/09/18 MICKEY KENNEDY May 09, 2018 21:43
[2018-05-09] MEDS ORDERED: ENOXAPARIN 80 MG/0.8 ML (LOVENOX) SYR SC ONE (21:45)
[2018-05-09] MEDS ORDERED: COLCHICINE 0.6 MG (COLCRYS) TABLET PO ONE (21:45)
[2018-05-09 22:13] LABS: INR 1.7 (0.8-1.4); PROTHROMBIN TIME PATIENT 19.7 SEC (12.2-14.7)
[2018-05-09] MEDS ORDERED: ONDN4T PO (22:26)
[2018-05-09] MEDS ORDERED: ONDANSETRON 4 MG (ZOFRAN) ORAL DISSOLVE TAB ONE (22:52)
[2018-05-09 22:58] VITALS: BP 146/68
[2018-05-09] MEDS ORDERED: ONDANSETRON 4 MG (ZOFRAN) ORAL DISSOLVE TAB PO ONE (23:00)
== END 2018-05-09 23:00 | disposition home or self-care (01) ==
LOC: EDUNIT# 18:22 → ER 18:24
DX: R11.2 Nausea with vomiting, unspecified (principal); R19.7 Diarrhea, unspecified; M10.9 Gout, unspecified; I25.10 Atherosclerotic heart disease of native coronary artery without angina pectoris; I10 Essential (primary) hypertension; M32.9 Systemic lupus erythematosus, unspecified; F41.9 Anxiety disorder, unspecified; F32.9 Major depressive disorder, single episode, unspecified; Z85.41 Personal history of malignant neoplasm of cervix uteri; Z87.19 Personal history of other diseases of the digestive system; Z79.82 Long term (current) use of aspirin; Z77.22 Contact with and (suspected) exposure to environmental tobacco smoke (acute) (chronic); Z90.49 Acquired absence of other specified parts of digestive tract; Z98.890 Other specified postprocedural states; Z90.710 Acquired absence of both cervix and uterus; Z90.89 Acquired absence of other organs
CPT/HCPCS: 36415; 73610; 80053; 84550; 85025; 85379; 85610; 85730; 86141

== ENCOUNTER → 2018-05-10 | Outpatient (CLI) | payer MEDICARE ==
[~2018-05-10] MED LIST changes: +ONDN4T PO
--- NOTE | 2018-05-10 10:12 | Diagnostic Imaging Report ---
INDICATION: Left lower extremity pain. TECHNIQUE: Grayscale with color-flow and Doppler waveform evaluation of the left lower extremity deep venous system. CORRELATION STUDY: None FINDINGS: Color and grayscale sonographic images demonstrate no intraluminal defect within the visualized portion of the common femoral, superficial femoral and/or popliteal veins to suggest thrombus formation. These vessels demonstrate normal response to compression and augmentation. No soft tissue fluid collection. IMPRESSION: 1. Negative for deep venous thrombosis of the left leg. Dictated by: Dictated on workstation # [id number]
== END ==
LOC: RAD 08:45
PROVIDERS: ATTEND Family Medicine
DX: M79.605 Pain in left leg (principal)

== ENCOUNTER 2018-07-15 10:01 | Inpatient (IN) | payer MEDICARE ==
[2018-07-15] VITALS (7 sets, daily range): BP systolic 119–175; BP diastolic 67–83
[~2018-07-15] VITALS: Ht 152.4 cm; Wt 73.2 kg
--- NOTE | 2018-07-15 10:24 | ED EENT ---
History of Present Illness General Chief Complaint: Eye Problems Stated Complaint: LEFT EYE BLINDNESS Nursing Triage Note: PT PRESENTS TO ED WITH COMPLAINTS OF L EYE PERIPHERAL VISION LOSS SINCE 0 LAST NIGHT. PT REPROTS LAST NIGHT SHE NOTICED "FLOATERS" IN HER EYE AND THEN THE BLINDNESS/DECREASE IN VISION GOT PROGRESSIVELY WORSE. PT ALSO REPROTS INTERMITTENT DURAN/STABBING PAIN ON THE R SIDE. Source: patient Exam Limitations: no limitations History of Present Illness Date Seen by Provider: Jul 15, 2018 Time Seen by Provider: 10:22 Initial Comments Patient had what she felt was floaters in her left eye last night. When she woke up this morning she had effectively loss of vision in her left eye. She can see light and shapes on nasal aspect. She denies speech or gait or motor difficulties. No eye pain. She has a mild frontal headache. Allergies and Home Medications Allergies Coded Allergies: No Known Drug Allergies (Verified , 10/21/08) Home Medications Aspirin 81 Mg Tabec, 81 MG PO DAILY, (Reported) Hydrocodone Bit/Acetaminophen 1 Each Tablet, 1 EACH PO Q4H PRN for PAIN, ( Reported) Hydroxychloroquine Sulfate 200 Mg Tab, 400 MG PO DAILY, (Reported) Niacin 250 Mg Tablet, 250 MG PO DAILY, (Reported) Nitrofurantoin Monohyd/M-Cryst 100 Mg Capsule, 100 MG PO BID Prescribed by: KEITH FERNANDEZ on 02/12/18 0218 Ondansetron HCl 4 Mg Tab, 4 MG PO Q4H PRN for NAUSEA/VOMITING-1ST LINE Prescribed by: MICKEY KENNEDY on 05/09/18 2226 S-Adenosylmethionine Sul Tosyl 200 Mg Tablet.dr, 400 MG PO DAILY, (Reported) Review of Systems Review of Systems Constitutional: no symptoms reported Eyes: Blurred Vision; Denies Pain Ears: No Symptoms Reported Throat: no symptoms reported Respiratory: no symptoms reported Musculoskeletal: no symptoms reported Neurological: Headache All Other Systems Reviewed Negative Unless Noted: Yes Past Klzludq-Apwniq-Bwdanu Hx Patient Social History Alcohol Use: Denies Use Recreational Drug Use: No Smoking Status: Current Everyday Smoker Type Used: Cigarettes 2nd Hand Smoke Exposure: Yes Recent Foreign Travel: No Contact w/Someone Who Travel: No Recent Infectious Disease Expo: No Recent Hopitalizations: No (REBECCA,HYST,T&A,R ANKLE PLATE&PIN,TEETH EXTRACTED) Physical Abuse: No Sexual Abuse: No Mistreated: No Fear: No Immunizations Up To Date Date of Pneumonia Vaccine: Dec 22, 2008 Date of Influenza Vaccine: Dec 23, 2011 Past Medical History Surgeries: Yes Abdominal, Adenoidectomy, Cardiac, Gallbladder, Hysterectomy, Oophorectomy, Orthopedic, Tonsillectomy Respiratory: Yes (SMOKER) Cardiac: Yes Coronary Artery Disease, High Cholesterol, Hypertension Neurological: No 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 Disorders: Yes (HX OF VULVAR CA--MODIFIED RADICAL VULVECTOMY 1991) [employer] History: Hysterectomy, Menopausal Sexually Transmitted Disease: No Genitourinary: Yes (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) Gastrointestinal: Yes (DIARRHEA POST CHOLECYSTECTOMY) Chronic Diarrhea, Gall Bladder Disease Musculoskeletal: Yes ("NO CARTILAGE IN KNEES") Arthritis Endocrine: Yes Lupus HEENT: No 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 oz. [id number]; BMI Method:Stated General Appearance: WD/WN, no apparent distress Eyes: left eye vision changes (can see light and shapes left eye.); bilateral eye normal inspection, bilateral eye PERRL, bilateral eye EOMI Nose: normal inspection Mouth/Throat: normal mouth inspection Neck: supple Cardiovascular: regular rate, rhythm, no edema Respiratory: lungs clear, normal breath sounds Gastrointestinal: non tender, soft Neurologic/Psychiatric: press and blow machine tender II-XII nml as tested, no motor/sensory deficits, alert, normal mood/affect, oriented x 3 Skin: normal color, warm/dry Progress/Results/Core Measures Results/Orders Lab Results Laboratory Tests Test 07/15/18 12:08 07/15/18 12:34 Range/Units White Blood Count 10.7 4.3-11.0 10^3/uL Red Blood Count 4.01 L 4.35-5.85 10^6/uL Hemoglobin 11.4 L 11.5-16.0 G/DL Hematocrit 35 35-52 % Mean Corpuscular Volume 87 80-99 FL Mean Corpuscular Hemoglobin 28 25-34 PG Mean Corpuscular Hemoglobin Concent 33 32-36 G/DL Red Cell Distribution Width 15.7 H 10.0-14.5 % Platelet Count 303 130-400 10^3/uL Mean Platelet Volume 10.3 7.4-10.4 FL Neutrophils (%) (Auto) 85 H 42-75 % Lymphocytes (%) (Auto) 7 L 12-44 % Monocytes (%) (Auto) 7 0-12 % Eosinophils (%) (Auto) 1 0-10 % Basophils (%) (Auto) 0 0-10 % Neutrophils # (Auto) 9.1 H 1.8-7.8 X 10^3 Lymphocytes # (Auto) 0.7 L 1.0-4.0 X 10^3 Monocytes # (Auto) 0.7 0.0-1.0 X 10^3 Eosinophils # (Auto) 0.1 0.0-0.3 10^3/uL Basophils # (Auto) 0.0 0.0-0.1 10^3/uL Neutrophils % (Manual) 86 % Lymphocytes % (Manual) 5 % Monocytes % (Manual) 2 % Eosinophils % (Manual) 2 % Basophils % (Manual) 0 % Band Neutrophils 5 % Blood Morphology Comment NORMAL Prothrombin Time 42.9 H 12.2-14.7 SEC INR Comment 4.3 H 0.8-1.4 Activated Partial Thromboplast Time 46 H 24-35 SEC Sodium Level 139 135-145 MMOL/L Potassium Level 3.1 L 3.6-5.0 MMOL/L Chloride Level 103 98-107 MMOL/L Carbon Dioxide Level 24 21-32 MMOL/L Anion Gap 12 5-14 MMOL/L Blood Urea Nitrogen 15 7-18 MG/DL Creatinine 0.99 0.60-1.30 MG/DL Estimat Glomerular Filtration Rate 55 BUN/Creatinine Ratio 15 Glucose Level 98 70-105 MG/DL Calcium Level 8.9 8.5-10.1 MG/DL Corrected Calcium 9.4 8.5-10.1 MG/DL Total Bilirubin 0.5 0.1-1.0 MG/DL Aspartate Amino Transf (AST/SGOT) 14 5-34 U/L Alanine Aminotransferase (ALT/SGPT) 15 0-55 U/L Alkaline Phosphatase 82 40-136 U/L Total Protein 6.3 L 6.4-8.2 GM/DL Albumin 3.4 3.2-4.5 GM/DL Urine Color YELLOW Urine Clarity CLEAR Urine pH 7 5-9 Urine Specific [place] 1.010 L 1.016-1.022 Urine Protein 1+ H NEGATIVE Urine Glucose (UA) NEGATIVE NEGATIVE Urine Ketones NEGATIVE NEGATIVE Urine Nitrite POSITIVE H NEGATIVE Urine Bilirubin NEGATIVE NEGATIVE Urine Urobilinogen 1 NORMAL MG/DL Urine Leukocyte Esterase 3+ H NEGATIVE Urine RBC (Auto) 2+ H NEGATIVE Urine RBC 0-2 /HPF Urine WBC 25-50 H /HPF Urine Squamous Epithelial Cells 2-5 /HPF Urine Crystals NONE /LPF Urine Bacteria LARGE H /HPF Urine Casts NONE /LPF Urine Mucus NEGATIVE /LPF Urine Culture Indicated YES My Orders Orders - WILDER SCHUMACHER MD Cbc With Automated Diff (07/15/18 10:11) Comprehensive Metabolic Panel (07/15/18 10:11) Protime With Inr (07/15/18 10:11) Partial Thromboplastin Time (07/15/18 10:11) Ct Head Wo (07/15/18 10:11) Ekg Tracing (07/15/18 11:16) Ct Angio Head/Neck (07/15/18 ) Iohexol Injection (Omnipaque 350 Mg/Ml 1 (07/15/18 12:00) Received Contrast (Hold Metformin- Contr (07/15/18 12:00) Manual Differential (07/15/18 12:08) Urinalysis (07/15/18 12:31) Chest 1 View, Ap/Pa Only (07/15/18 12:44) Iohexol Injection (Omnipaque 350 Mg/Ml 1 (07/15/18 13:00) Received Contrast (Hold Metformin- Contr (07/15/18 13:00) Urine Culture (07/15/18 12:34) Ondansetron Injection (Zofran Injectio (07/15/18 13:15) Ondansetron Injection (Zofran Injectio (07/15/18 13:03) Ondansetron Injection (Zofran Injectio (07/15/18 13:15) Amb Us Guide Vascular Access (07/15/18 ) Ceftriaxone For Iv Use (Rocephin For I (07/15/18 14:15) Medications Given in ED Current Medications Medications Dose Ordered Sig/Kenneth Route Start Time Stop Time Status Last Admin Dose Admin Iohexol 75 ml ONCE ONCE IV 07/15/18 12:00 07/15/18 12:01 DC 07/15/18 13:11 75 ML Iohexol 100 ml ONCE ONCE IV 07/15/18 13:00 07/15/18 13:03 DC 07/15/18 13:46 100 ML Ondansetron HCl 4 mg ONCE ONCE IVP 07/15/18 13:15 07/15/18 13:16 DC 07/15/18 13:13 4 MG Vital Signs/I&O 07/15/18 10:08 Temp 98.2 Pulse 86 Resp 18 B/P (MAP) 176/99 (124) Pulse Ox 96 Blood Pressure Mean: 124 Progress Progress Note : Time: 10:56 Progress Note NIHSS=2, CT SHOWS R OCCIPITAL INFARCT. I spoke with Dr. Spencer (neurology [facility]). He recommended CTA. If that is Negative we will admit her for observation. Initial ECG Impression Date: Jul 15, 2018 Initial ECG Impression Time: 11:26 Initial ECG Rate: 80 Initial ECG Rhythm: Normal Sinus Initial ECG Intervals: Normal Initial ECG Impression: Nonspecific Changes Departure Communication (Admissions) Time/Spoke to Admitting Phy: 14:[address] Mosquera who agrees to admit. Patient's discussed the patient. No worsening of condition. Stable for admission to telemetry. Impression Primary Impression: CVA (cerebral vascular accident) Disposition: 01 HOME, SELF-CARE Admissions Decision to Admit Reason: Admit from ER (General) Decision to Admit/Date: Jul 15, 2018 Time/Decision to Admit Time: 13:50 Transfer Time Spoke to Accepting Phy: 13:50 Departure-Patient Inst. Referrals: [facility] [place] (PCP/Family) Primary Care Physician WILDER SCHUMACHER MD Jul 15, 2018 10:24
--- NOTE | 2018-07-15 10:56 | Diagnostic Imaging Report ---
Clinical indication: Cannot see out of the left eye. Patient's headache, nausea, and dizziness since last night. Exam: Axial CT scan of the brain performed without IV contrast. Comparison: None. Findings: There is a small to moderate-sized area of transcortical and white matter low density involving the right occipital lobe concerning for acute/subacute infarct. There is no other areas concerning for acute cerebral infarct. There are subtle focal areas of low-attenuation white matter changes involving both cerebral hemispheres, likely representing chronic small vessel ischemic disease. There is no intracranial hemorrhage, brain herniation, or midline shift. There is no hydrocephalus. Basal cisterns are unremarkable. The brain parenchymal volume appears appropriate for patient's age. The extra cranial soft tissue, skull, and orbits are unremarkable. Paranasal sinuses and temporal bone structures are unremarkable. Impression: 1: There is a small to moderate-sized area of acute/subacute infarct involving the right occipital lobe. There is no evidence of intra-cranial hemorrhage, brain herniation, or midline shift. 2. The remainder of the brain parenchyma is unremarkable for patient's age. Results of this report discussed with Dr. Kb Seay via the telephone on 07/15/2018 at 1045 hrs. Dictated by: Dictated on workstation # [id number]
--- NOTE | 2018-07-15 11:00 | NUR ---
[facility] CONTACTED FOR MIDLINE PLACEMENT.
--- NOTE | 2018-07-15 11:05 | NUR ---
CONTACTED SON PLACE OF WORK TO HAVE HIM CALL ED FOR HIS MOTHER
--- NOTE | 2018-07-15 11:15 | NUR ---
LAB HERE FOR BLOOD DRAW. 2 ATTEMPTS UNSUCCESSFUL. REPORTS WILL HAVE ANOTHER SHEET TAKER ATTEMPT.
--- NOTE | 2018-07-15 11:20 | NUR ---
PT SON AT BEDSIDE AT THIS TIME.
--- NOTE | 2018-07-15 11:35 | NUR ---
DAY SX HERE TO ATTEMPT MIDLINE PLACEMENT AT THIS TIME.
[2018-07-15] MEDS ORDERED: IOHEXOL 350 MG/ML 100 ML (OMNIPAQUE 350) VIAL IV ONE ×2 (12:00→13:00)
[2018-07-15] MEDS ORDERED: HOLD METFORMIN - RECEIVED CONTRAST 20 ML VIAL IV SCH ×2 (12:00→13:00)
[2018-07-15 12:15] LABS: BASOPHILS % (AUTO) 0 % (0-10); EOSINOPHILS # (AUTO) 0.1 10^3/uL (0.0-0.3); EOSINOPHILS % (AUTO) 1 % (0-10); HEMATOCRIT 35 % (35-52); HEMOGLOBIN 11.4 G/DL (11.5-16.0); LYMPHOCYTES # (AUTO) 0.7 X 10^3 (1.0-4.0); LYMPHOCYTES % (AUTO) 7 % (12-44); MEAN CORPUSCULAR HEMOGLOBIN 28 PG (25-34); MEAN CORPUSCULAR HGB CONC 33 G/DL (32-36); MEAN CORPUSCULAR VOLUME 87 FL (80-99); MEAN PLATELET VOLUME 10.3 FL (7.4-10.4); MONOCYTES # (AUTO) 0.7 X 10^3 (0.0-1.0); MONOCYTES % (AUTO) 7 % (0-12); NEUTROPHILS # (AUTO) 9.1 X 10^3 (1.8-7.8); NEUTROPHILS % (AUTO) 85 % (42-75); PLATELET COUNT 303 10^3/uL (130-400); RED CELL DISTRIBUTION WIDTH 15.7 % (10.0-14.5); WHITE BLOOD COUNT 10.7 10^3/uL (4.3-11.0)
[2018-07-15 12:28] LABS: INR 4.3 (0.8-1.4); PROTHROMBIN TIME PATIENT 42.9 SEC (12.2-14.7)
[2018-07-15 12:33] LABS: ALBUMIN 3.4 GM/DL (3.2-4.5); BILIRUBIN,TOTAL 0.5 MG/DL (0.1-1.0); CALCIUM 8.9 MG/DL (8.5-10.1); CREATININE SERUM 0.99 MG/DL (0.60-1.30); POTASSIUM 3.1 MMOL/L (3.6-5.0); TOTAL PROTEIN 6.3 GM/DL (6.4-8.2)
[2018-07-15 12:39] LABS: BAND NEUTROPHILS 5 %; BASOPHILS % (MANUAL) 0 %; EOSINOPHILS % (MANUAL) 2 %; LYMPHOCYTES % (MANUAL) 5 %; MONOCYTES % (MANUAL) 2 %; NEUTROPHILS % (MANUAL) 86 %
[2018-07-15 12:40] LABS: RBC MORPH NORMAL
[2018-07-15 12:43] LABS: BILIRUBIN,URINE NEGATIVE (NEGATIVE); CLARITY,URINE CLEAR; COLOR,URINE YELLOW; GLUCOSE, URINE (UA) NEGATIVE (NEGATIVE); KETONES,URINE NEGATIVE (NEGATIVE); LEUKOCYTE ESTERASE ,URINE 3+ (NEGATIVE); NITRITE,URINE POSITIVE (NEGATIVE); PH,URINE 7 (5-9); PROTEIN,URINE 1+ (NEGATIVE); UROBILINOGEN,URINE 1 MG/DL (NORMAL)
[2018-07-15 12:51] LABS: BACTERIA,URINE LARGE /HPF; RBC,URINE 0-2 /HPF; WBC,URINE 25-50 /HPF
--- NOTE | 2018-07-15 13:01 | Diagnostic Imaging Report ---
INDICATION: Visual changes and headache. Frontal chest obtained at 12:51 p.m. and is compared to 08/07/2017. Heart is borderline in size. There are mild chronic-appearing increased basilar markings which are unchanged compared to the prior study. There is no acute infiltrate, pneumothorax, or pleural fluid. IMPRESSION: Borderline heart size with mild chronic-appearing increased basilar markings. No acute consolidation or pleural fluid. Dictated by: Dictated on workstation # [id number]
[2018-07-15] MEDS ORDERED: ONDANSETRON 4 MG/2 ML (SDV) Z0FRAN ONE (13:03)
[2018-07-15] MEDS ORDERED: ONDANSETRON 4 MG/2 ML (SDV) Z0FRAN IVP ONE ×2 (13:15)
--- NOTE | 2018-07-15 13:59 | Diagnostic Imaging Report ---
PROCEDURE: CT angiography of the head and CT angiography of the neck with and without contrast. TECHNIQUE: Contiguous noncontrast images were obtained from the skull base through the vertex. After intravenous contrast administration, helical CT angiography of the neck was performed. Source data was reformatted into multiple MIP projections. Delayed post contrast acquisition was also obtained. Auto Exposure Controls were utilized during the CT exam to meet ALARA standards for radiation dose reduction. INDICATION: Head pain, dizziness, nausea, left-sided vision loss. FINDINGS: CT ANGIO NECK: There is a large amount of irregular soft plaque adherent predominantly to the anterior wall of the aortic arch. The visualized aorta is nonaneurysmal. The branching pattern of the great vessels is unremarkable. We note a greater degree of contrast opacification of the venous structures than the arterial structures which substantially limits sensitivity for detecting stenoses and luminal irregularities. The cervical vertebral arteries are grossly unremarkable and appear codominant. There are mixed soft and hard plaques substantially involving both carotid bulbs and bifurcations as well as extending into the proximal ICAs bilaterally. On the right, this results in about 70% proximal ICA stenosis and on the left about 50%. The cervical internal carotids beyond that level are tortuous but patent. CT ANGIO HEAD: The intrathecal vertebral arteries are unremarkable. The basilar is patent. The right-sided P1 segment is normal. The P2 segment is small and somewhat irregular. The right [place] [employer] at its P3 segment is small and difficult to visualize but can be identified. No identifiable convincing enhancement of the right-sided P4 segmental branches; however, this may be on a technical basis owing to suboptimal arterial opacification. The left-sided posterior cerebral arterial segments are grossly unremarkable; however, its P4 branch opacification is limited. There are heavy calcified plaques involving the cavernous segments of the intracranial carotids without convincing hemodynamically significant stenosis. The terminal segments of the carotids are patent. The A1 segments are patent bilaterally with opacification of the bilateral anterior cerebral arteries confirmed. The bilateral middle cerebral arterial segments and primary branches appear opacified. Note is made of multiple intraparotid masses on the right. The largest in the superficial pole measures 2.1 x 1.3 cm with the next largest in the deep lobe measuring a diameter of 1.6 cm. These are very well-defined and relatively homogenous in their enhancement, suggestive of benign Warthin tumors. IMPRESSION: 1. Limited arterial opacification and excessive venous contamination limit the exam sensitivity. 2. Right greater than left carotid bifurcation plaque with 70% right and 50% left proximal ICA stenoses with the cervical vertebrals codominant and patent. 3. Small irregular right posterior cerebral artery at its P2 and P3 segments with nonvisualization of P4 segmental luminal opacification and its patency not confirmed; however, the contralateral left P4 segment also is very poorly opacified on a technical basis. We note the earlier performed CT head showed recent ischemic changes to the right [place] distribution. 4. Intracranial carotid plaques without stenosis. The anterior circulation appears grossly unremarkable. 5. Intraparotid masses are very well-defined, solid, and enhancing in the right parotid lobes, suggestive of multifocal Warthin tumors. Dictated by: Dictated on workstation # [id number]
[2018-07-15] MEDS ORDERED: cefTRIAXone FOR IV USE 1,000 MG in WATER (STERILE) FOR INJECTION 10 ML IV ONE (14:15)
--- NOTE | 2018-07-15 15:14 | NUR ---
REPORT TAKEN AT THIS TIME FROM [facility] IN EMERGENCY DEPARTMENT. THIS RN WILL ASSUME CARE WHEN SHE ARRIVES TO 4TH MEDICAL FLOOR.
--- NOTE | 2018-07-15 15:26 | NUR ---
PATIENT TO FLOOR AT THIS TIME VIA W/C ACCOMPANIED BY PRAKASH VELAZCO.
--- NOTE | 2018-07-15 17:23 | NUR ---
DR. WHITTEN NOTIFIED OF CONSULT AT THIS TIME, NO NEW ORDERS. HE STATES HE WILL SEE PATIENT IN THE A.M.
--- NOTE | 2018-07-15 17:52 | NUR ---
patient passed bedside dysphagia water test.
--- NOTE | 2018-07-15 18:31 | Diagnostic Imaging Report ---
INDICATION: Stroke symptoms. Carotid Doppler study performed in the routine fashion with color-flow Doppler and waveform analysis. There is some calcified plaquing visualized in the carotid bifurcation on both sides. On the right side, the ICA/CCA systolic velocity ratio is 2.3, suggesting stenosis between 50 and 70%. On the left side, ICA/CCA systolic velocity ratio is 1.14, suggesting no significant stenosis. The right vertebral artery is patent with antegrade flow. Left vertebral artery is not visualized. Parameters based on the consensus panel Haley-Scale and Doppler ultrasound criteria published January 2003, Radiology, Volume 229. DOPPLER (peak systolic velocity M/S Right Left CCA 0.59 0.61 ICA Proximal 1.3 0.64 ICA Mid 1.4 0.70 ICA Distal 1.2 0.66 RATIO 2.3 1.14 ECA 1.4 1.5 VERT 0.33 NOT SEEN IMPRESSION: Plaquing is visualized in the carotid bifurcation on both sides, right worse than left. On the right side, the ratio suggests a stenosis between 50 and 70%. On the left side, there is no significant stenosis. Right vertebral artery is patent. Left vertebral artery is not visualized. Dictated by: Dictated on workstation # [id number]
[2018-07-15] MEDS: ACETAMINOPHEN 500 MG TAB (TYLENOL) PO PRN (19:40)
[2018-07-16] VITALS (7 sets, daily range): BP systolic 134–166; BP diastolic 62–89
[2018-07-16] MEDS: ACETAMINOPHEN 500 MG TAB (TYLENOL) PO PRN (03:40)
[2018-07-16 04:54] LABS: CHOLESTEROL 177 MG/DL (< 200); HDL CHOLESTEROL 38 MG/DL (40-60); TRIGLYCERIDES 132 MG/DL (<150); VLDL CHOLESTEROL 26 MG/DL (5-40)
[2018-07-16] MEDS ORDERED: HYDR200T46 PO (08:34)
[2018-07-16] MEDS ORDERED: GABA-486 PO (08:34)
[2018-07-16] MEDS ORDERED: S-AD400T3 PO (08:34)
[2018-07-16] MEDS ORDERED: DIPH1TAB25 PO (08:34)
[2018-07-16] MEDS ORDERED: NIAC250T8 PO (08:34)
[2018-07-16] MEDS ORDERED: ASPI-983 PO (08:34)
[2018-07-16] MEDS ORDERED: PRD10T PO (08:34)
[2018-07-16] MEDS ORDERED: ONDA4TAB10 PO (08:34)
[2018-07-16] MEDS ORDERED: ALLO100T PO (08:34)
[2018-07-16] MEDS ORDERED: FLUO40CA12 PO (08:46)
[2018-07-16] MEDS ORDERED: HYDR-3812 PO (08:46)
[2018-07-16] MEDS ORDERED: WARF-48 PO (08:46)
[2018-07-16] MEDS ORDERED: ATOR20TA66 PO (08:54)
--- NOTE | 2018-07-16 08:54 | NUR ---
SPOKE WITH THE PATIENT ABOUT HER MEDICATIONS. WE WENT OVER THE EXT MED HX AND SHE VERIFIED HOW SHE TAKES THEM. SHE ALSO LISTED SOME MEDS THAT WERE NOT SHOWN ON THE EXT MED HX. I CALLED [facility] TO VERIFY. IN ADDITION TO WHAT IS SHOWN ON THE EXT MED HX [facility] FILLED: 07-01-18 HYDROCODONE 5-325MG TID PRN 28 DAY SUPPLY 06-10-18 WARFARIN 5MG DAILY #30 06-10-18 FLUOXETINE 40MG DAILY 01-30-18 LIPITOR 20MG HS #30 SHE STATES SHE DOES NOT RECEIVE MEDICATIONS THROUGH THE REPOSITORY OR SAMPLES, HOWEVER SHE IS PAST DUE FOR REFILL ON THE LIPITOR SIGNIFICANTLY. I NOTED THE PAST DUE FILL DATE ON THE MED REC.
--- NOTE | 2018-07-16 08:54 | Consultation-Cardiology ---
HPI-Cardiology Cardiology Consultation: Date of Consultation 07/16/18 Time Seen by a Provider: 08:20 Date of Admission 07-15-18 Attending Physician Slime Del Real DO Admitting Physician [facility] Consulting Physician Loly Olvera MD HPI: Chief Complaint: Acute CVA Ms. Parker is a 73 year old female admitted to [facility] from the ED. She reports 2 days ago she felt she was having a floater in her left eye. She reports it progressively got worse to where she felt a "blind" was being closed over her eye and then she lost sight. She reports she has regained some vision, but still has no peripheral vision of her left eye. She denies any c/o CP, palpitations, syncope, near syncope. She has chronic mild exertional dyspnea, but this is unchanged. She reports in November when she was diagnosed with a clot to her right kidney she did have some generalized weakness and poor balance for which she was using a walker, but has improved to where she is using a cane. She denies and dysphagia. She denies any unilateral weakness. She reports she follow with Daniel Meade APRN at [facility]. She does report she is on warfarin tx since November and it is followed by [facility]. She smokes cigs approx 1 PPD. Review of Systems-Cardiology Review of Systems Constitutional: No chills, No fever, No malaise Eyes: As described under HPI Ears/Nose/Throat: No epistaxis, No recent hearing loss, No ulcerations Respiratory: As described under HPI Cardiovascular: As described under HPI Gastrointestinal: No constipation; diarrhea; No nausea, No vomiting Genitourinary: No dysuria, No hematuria Musculoskeletal: joint pain (chronic) Skin: No rash, No ulcerations Psychiatric/Neurological: As described under HPI, depression; No syncope Hematologic: easy bruising All Other Systems Reviewed Negative Unless Noted: Yes UYZ-Douibl-Tvzgrl Hx Patient Social History Alcohol Use: Denies Use Recreational Drug Use: No Smoking Status: Current Everyday Smoker Type Used: Cigarettes 2nd Hand Smoke Exposure: Yes Recent Foreign Travel: No Recent Infectious Disease Expo: No Physical Abuse Screen: No Sexual Abuse: No Immunizations Up To Date Date of Pneumonia Vaccine: Dec 22, 2008 Date of Influenza Vaccine: Dec 23, 2011 Past Medical History PMH As described under Assessment. Family Medical History Family Medical History: She reports her son has CAD with placement of 2 stents in the past. She reports "all the women in my family have had strokes". Family History: Patient reports no known family medical history. Allergies and Home Medications Allergies Coded Allergies: No Known Drug Allergies (Verified , 10/21/08) Home Medications Allopurinol 100 Mg Tablet, 100 MG PO DAILY, (Reported) Atorvastatin Calcium 20 Mg Tablet, 20 MG PO HS, (Reported) LAST FILLED #30 11-9-18 Diphenoxylate HCl/Atropine 1 Each Tablet, 1 TAB PO Q6H PRN for DIARRHEA, ( Reported) Fluoxetine HCl 40 Mg Capsule, 40 MG PO DAILY, (Reported) Gabapentin 100 Mg Capsule, 100 MG PO TID, (Reported) Hydrocodone/Acetaminophen 1 Each Tablet, 1 TAB PO TID PRN for PAIN-MODERATE, ( Reported) Hydroxychloroquine Sulfate 200 Mg Tablet, 400 MG PO DAILY, (Reported) TAKES 2 (200MG) TABLETS Ondansetron HCl 4 Mg Tablet, 4 MG PO Q6H PRN for NAUSEA/VOMITING-1ST LINE, ( Reported) Prednisone 10 Mg Tab, 10 MG PO DAILY, (Reported) Warfarin Sodium 5 Mg Tablet, 5 MG PO 1800, (Reported) Patient Home Medication List Home Medication List Reviewed: Yes Physical Exam-Cardiology Physical Exam Vital Signs/I&O 07/19/18 07/20/18 07/20/18 07/20/18 23:51 01:00 04:32 07:00 Temp 98.3 97.4 Pulse 70 73 88 74 Resp 18 17 B/P (MAP) 177/83 (114) 160/82 (108) Pulse Ox 96 96 O2 Delivery Room Air Room Air 07/20/18 00:00 Intake Total 1720 ml Balance 1720 ml Capillary Refill : Less Than 3 Seconds Constitutional: AAO x 3, well-developed, well-nourished HEENT: hearing is well preserved, oral hygience is good Neck: carotid bruit, carotid pulses are 2 + bilaterally Respiratory: No accessory muscle use; chest expansion is symmetric, chest is bilaterally symmetric, other (prolonged expiratory phase) Cardiovascular: regular rate-rhythm; No JVD; S1 and S2 Gastrointestinal: No tender; soft, round, audible bowel sounds Rectal: deferred Extremities: other (RLE visibly larger than left (reports chronic)) Neurologic/Psychiatric: grossly intact Skin: No rash, No ulcerations Data Review Labs Laboratory Tests 4/29/19 06:23: Prothrombin Time 37.2H, INR Comment 3.6H Microbiology 07/15/18 Urine Culture - Final, Complete Escherichia coli Radiology NAME: EUGENIO PARKER [facility] REC#: [id number] PT STATUS: ADM IN : 1945 PHYSICIAN: SLIME DEL REAL DO ADMIT DATE: 07/15/18 Signed Date of Exam: 07/15/18 US CAROTID LISA COMPLETE [id number] INDICATION: Stroke symptoms. Carotid Doppler study performed in the routine fashion with color-flow Doppler and waveform analysis. There is some calcified plaquing visualized in the carotid bifurcation on both sides. On the right side, the ICA/CCA systolic velocity ratio is 2.3, suggesting stenosis between 50 and 70%. On the left side, ICA/CCA systolic velocity ratio is 1.14, suggesting no significant stenosis. The right vertebral artery is patent with antegrade flow. Left vertebral artery is not visualized. Parameters based on the consensus panel Haley-Scale and Doppler ultrasound criteria published January 2003, Radiology, Volume 229. DOPPLER (peak systolic velocity M/S Right Left CCA 0.59 0.61 ICA Proximal 1.3 0.64 ICA Mid 1.4 0.70 ICA Distal 1.2 0.66 RATIO 2.3 1.14 ECA 1.4 1.5 VERT 0.33 NOT SEEN IMPRESSION: Plaquing is visualized in the carotid bifurcation on both sides, right worse than left. On the right side, the ratio suggests a stenosis between 50 and 70%. On the left side, there is no significant stenosis. Right vertebral artery is patent. Left vertebral artery is not visualized. Dictated by: Dictated on workstation # [id number] Dict: 07/15/181810 Trans: 07/15/181899 Interpreted by: KALEB CORMIER MD Electronically signed by: KALEB CORMIER MD 07/15/181899 NAME: EUGENIO PARKER [facility] REC#: [id number] PT STATUS: ADM IN : 1945 PHYSICIAN: KB SCHUMACHER MD ADMIT DATE: 07/15/18 Signed Date of Exam: 07/15/18 CT HEAD WO Clinical indication: Cannot see out of the left eye. Patient's headache, nausea, and dizziness since last night. Exam: Axial CT scan of the brain performed without IV contrast. Comparison: None. Findings: There is a small to moderate-sized area of transcortical and white matter low density involving the right occipital lobe concerning for acute/subacute infarct. There is no other areas concerning for acute cerebral infarct. There are subtle focal areas of low-attenuation white matter changes involving both cerebral hemispheres, likely representing chronic small vessel ischemic disease. There is no intracranial hemorrhage, brain herniation, or midline shift. There is no hydrocephalus. Basal cisterns are unremarkable. The brain parenchymal volume appears appropriate for patient's age. The extra cranial soft tissue, skull, and orbits are unremarkable. Paranasal sinuses and temporal bone structures are unremarkable. Impression: 1: There is a small to moderate-sized area of acute/subacute infarct involving the right occipital lobe. There is no evidence of intra-cranial hemorrhage, brain herniation, or midline shift. 2. The remainder of the brain parenchyma is unremarkable for patient's age. Results of this report discussed with Dr. Kb Schumacher via the telephone on 07/15/2018 at 1045 hrs. Dictated by: Dictated on workstation # [id number] Dict: 07/15/18 1042 Trans: 07/15/181723 Interpreted by: CATERINA COKER MD Electronically signed by: CATERINA COKER MD 07/15/181723 NAME: EUGENIO PARKER [facility] REC#: [id number] PT STATUS: ADM IN : 1945 PHYSICIAN: KB SCHUMACHER MD ADMIT DATE: 07/15/18/ Signed Date of Exam: 07/15/18 CT ANGIO HEAD/NECK PROCEDURE: CT angiography of the head and CT angiography of the neck with and without contrast. TECHNIQUE: Contiguous noncontrast images were obtained from the skull base through the vertex. After intravenous contrast administration, helical CT angiography of the neck was performed. Source data was reformatted into multiple MIP projections. Delayed post contrast acquisition was also obtained. Auto Exposure Controls were utilized during the CT exam to meet ALARA standards for radiation dose reduction. INDICATION: Head pain, dizziness, nausea, left-sided vision loss. FINDINGS: CT ANGIO NECK: There is a large amount of irregular soft plaque adherent predominantly to the anterior wall of the aortic arch. The visualized aorta is nonaneurysmal. The branching pattern of the great vessels is unremarkable. We note a greater degree of contrast opacification of the venous structures than the arterial structures which substantially limits sensitivity for detecting stenoses and luminal irregularities. The cervical vertebral arteries are grossly unremarkable and appear codominant. There are mixed soft and hard plaques substantially involving both carotid bulbs and bifurcations as well as extending into the proximal ICAs bilaterally. On the right, this results in about 70% proximal ICA stenosis and on the left about 50%. The cervical internal carotids beyond that level are tortuous but patent. CT ANGIO HEAD: The intrathecal vertebral arteries are unremarkable. The basilar is patent. The right-sided P1 segment is normal. The P2 segment is small and somewhat irregular. The right ALTERATION INSPECTOR at its P3 segment is small and difficult to visualize but can be identified. No identifiable convincing enhancement of the right-sided P4 segmental branches; however, this may be on a technical basis owing to suboptimal arterial opacification. The left-sided posterior cerebral arterial segments are grossly unremarkable; however, its P4 branch opacification is limited. There are heavy calcified plaques involving the cavernous segments of the intracranial carotids without convincing hemodynamically significant stenosis. The terminal segments of the carotids are patent. The A1 segments are patent bilaterally with opacification of the bilateral anterior cerebral arteries confirmed. The bilateral middle cerebral arterial segments and primary branches appear opacified. Note is made of multiple intraparotid masses on the right. The largest in the superficial pole measures 2.1 x 1.3 cm with the next largest in the deep lobe measuring a diameter of 1.6 cm. These are very well-defined and relatively homogenous in their enhancement, suggestive of benign Warthin tumors. IMPRESSION: 1. Limited arterial opacification and excessive venous contamination limit the exam sensitivity. 2. Right greater than left carotid bifurcation plaque with 70% right and 50% left proximal ICA stenoses with the cervical vertebrals codominant and patent. 3. Small irregular right posterior cerebral artery at its P2 and P3 segments with nonvisualization of P4 segmental luminal opacification and its patency not confirmed; however, the contralateral left P4 segment also is very poorly opacified on a technical basis. We note the earlier performed CT head showed recent ischemic changes to the right ALTERATION INSPECTOR distribution. 4. Intracranial carotid plaques without stenosis. The anterior circulation appears grossly unremarkable. 5. Intraparotid masses are very well-defined, solid, and enhancing in the right parotid lobes, suggestive of multifocal Warthin tumors. Dictated by: Dictated on workstation # [id number] Dict: 07/15/18 1336 Trans: 07/15/18 1725 Interpreted by: KARINA CONWAY Electronically signed by: KARINA CONWAY 07/15/18 1726 ECG Impression ECG Initial ECG Rhythm: Normal Sinus A/P-Cardiology Assessment/Admission Diagnosis CVA - small to moderate-sized area of acute/subacute infarct involving the right occipital lobe. There is no evidence of intra-cranial hemorrhage, brain herniation, or midline shift. (Per CT of the head on 07-15-18). Resulting in left sided peripheral vision loss - management of stroke is per stroke services Carotid artery disease - Plaquing is visualized in the carotid bifurcation on both sides, right worse than left. On the right side, the ratio suggests a stenosis between 50 and 70%. On the left side, there is no significant stenosis. Right vertebral artery is patent. Left vertebral artery is not visualized. Per u/s of 07-15-18 UTI - management per medical services Echocardiogram of Nov [address] Calzada showed LVEF 55% with mild MR Cardiac cath of July [address] Olvera showed multi-vessel dz - 60-70% mid-LAD involving origin of relatively sm caliber diag branch. 50-60% L Cx. RCA - large and dominant with 50% stenosis mid-vessel and 60% distal. LVEF 60%. Referred to Dr. 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 Advanced diffuse calcified atherosclerotic disease and diffuse mural thrombus of the abdominal aorta. Per CT of the abd/pelvis Nov 2017. Transferred to Dr. Chris at [facility] in [place], [place] - details of tx following transfer unknown H/O sinus bradycardia and V-tach during ED visit in November 2017 - transferred to [facility] at that time Chronic diarrhea Reports chronic lymphedema to right leg Depression Lupus Gout Family h/o CAD (son has had coronary stenting; mother has had CVA) Clinical Quality Measures DVT/VTE Risk/Contraindication: Risk Factor Score Per Nursin RFS Level Per Nursing on Admit: 4+=Very High TATY ENGLE Jul 16, 2018 08:54
--- NOTE | 2018-07-16 09:50 | History & Physical-Hospitalist ---
History of Present Illness HPI/Chief Complaint Chief Complaint: Completed occipital right occipital infarct HPI: This is 73yoWF that presented after a long delay after suffering loss of left peripheral vision. She reports that it did not accompany any type of pain or headache and no other weakness anywhere in her body. She is maintained on Coumadin for an uncertain source or medical condition so we will consult cardiology to evaluate and research that. She was also taking an aspirin at home and a statin therapy so it is concerning that she suffers and infarct confirmed on CT scan that is completed and not a tPA candidate while being on anti platelet treatment also. At this current time pt is having some loose stools, she takes probiotic at home and that was restarted along with other medications. Source: patient Date Seen 07/16/18 Time Seen by a Provider: 09:30 Attending Physician Slime Mosquera DO [facility] Referring Physician Date of Admission Jul 15, 2018 at 14:10 Home Medications & Allergies Home Medications Reviewed patient Home Medication Reconciliation performed by pharmacy medication reconciliations plant technician and/or nursing. Patients Allergies have been reviewed. Allergies Allergies Coded Allergies No Known Drug Allergies (Verified10/21/08) Past Zuazyqp-Tmxrjs-Jmqydl Hx Past Med/Social Hx: Reviewed Nursing Past Med/Soc Hx, Reviewed and Corrections made Patient Social History Marrital Status: single Employed/Student: retired Alcohol Use: Denies Use Recreational Drug Use: No Smoking Status: Current Everyday Smoker Type Used: Cigarettes 2nd Hand Smoke Exposure: Yes Physical Abuse Screen: No Sexual Abuse: No Recent Foreign Travel: No Contact w/other who traveled: No Recent Hopitalizations: No (REBECCA,HYST,T&A,R ANKLE PLATE&PIN,TEETH EXTRACTED) Recent Infectious Disease Expo: No Immunizations Up To Date Pediatric: No Date of Pneumonia Vaccine: Dec 22, 2008 Date of Influenza Vaccine: Dec 23, 2011 Past Medical History Surgeries: Abdominal, Adenoidectomy, Cardiac, Gallbladder, Hysterectomy, Oophorectomy, Orthopedic, Tonsillectomy Currently Using CPAP: No Currently Using BIPAP: No Cardiac: Coronary Artery Disease, High Cholesterol, Hypertension 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: Yes (HX OF VULVAR CA--MODIFIED RADICAL VULVECTOMY 1991) Sexually Transmitted Disease: No HIV/AIDS: No 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 Disorders: Denies Hysterectomy, Menopausal Gastrointestinal: Chronic Diarrhea, Gall Bladder Disease Musculoskeletal: Arthritis Endocrine: Lupus Are Your Blood Sugars Over 250: No Cancer: Cervical, Vaginal Did You Recieve Any Treatments: Yes What Type of Treatment Did You: Surgical Intervention Psychosocial: Anxiety, Depression History of Blood Disorders: No Adverse Reaction to Blood [place]bin: No Family History Patient reports no known family medical history. Review of Systems Constitutional: see HPI, weakness EENTM: vision loss Respiratory: no symptoms reported Cardiovascular: no symptoms reported Gastrointestinal: no symptoms reported Genitourinary: no symptoms reported Musculoskeletal: no symptoms reported Skin: no symptoms reported Psychiatric/Neurological: No Symptoms Reported All Other Systems Reviewed Negative Unless Noted: Yes Physical Exam Physical Exam Vital Signs Vital Signs - First Documented 07/15/18 10:08 Temp 98.2 Pulse 86 Resp 18 B/P (MAP) 176/99 (124) Pulse Ox 96 Capillary Refill : Less Than 3 Seconds Height, Weight, BMI Height: 5'0.00" Weight: 161lbs. 7.0oz. 73.837888by; 31.5 BMI Method:Stated General Appearance: No Apparent Distress, WD/WN, Chronically ill Eyes: Right Eye Normal Inspection, Right Eye PERRL HEENT: PERRL/EOMI, TMs Normal, Normal ENT Inspection, Pharynx Normal, Moist Mucous Membranes, Other (left peripheral vision loss noted) Neck: Full Range of Motion, Normal Inspection, Non Tender Respiratory: Chest Non Tender, Lungs Clear, Normal Breath Sounds, No Accessory Muscle Use, No Respiratory Distress Cardiovascular: Regular Rate, Rhythm, No Edema, No Gallop, No JVD, No Murmur, Normal Peripheral Pulses Gastrointestinal: Normal Bowel Sounds, No Organomegaly, No Pulsatile Mass, Non Tender, Soft Back: Normal Inspection, No CVA Tenderness, No Vertebral Tenderness Extremity: Normal Capillary Refill, Normal Inspection, Normal Range of Motion, Non Tender, No Calf Tenderness, No Pedal Edema Neurologic/Psychiatric: Alert, Oriented x3, No Motor/Sensory Deficits, Normal Mood/Affect Skin: Normal Color, Warm/Dry Lymphatic: No Adenopathy Results Results/Procedures Labs Laboratory Tests 07/15/18 12:08 07/16/18 10:25 Patient resulted labs reviewed. Assessment/Plan Admission Diagnosis Assessment: CVA right occipital with left peripheral vision loss Smoker Coumadin treatment HTN SLE Renal vein thrombosis 12/09 Plan: Appreciate Cardiology PT/OT ASA Statin Coumadin Admission Status: Inpatient Order (span 2 midnights) Reason for Inpatient Admission: CVA will require 3 days of w/u and reversal of INR Diagnosis/Problems Diagnosis/Problems (1) CVA (cerebral vascular accident) Status: Acute (2) Lupus (systemic lupus erythematosus) Status: Chronic Qualifiers: Systemic lupus erythematosus type: unspecified Systemic lupus erythematosus organ involvement: unspecified Qualified Codes: M32.9 - Systemic lupus erythematosus, unspecified (3) Smoker Status: Chronic (4) Hypertension Status: Chronic Qualifiers: Hypertension type: essential hypertension Qualified Codes: I10 - Essential (primary) hypertension (5) Hyperlipidemia Status: Chronic Qualifiers: Hyperlipidemia type: mixed 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 Qualified Codes: E78.2 - 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 (6) Anticoagulated on Coumadin Status: Chronic (7) Thrombosis, renal vein Clinical Quality Measures DVT/VTE Risk/Contraindication: Risk Factor Score Per Nursin RFS Level Per Nursing on Admit: 4+=Very High SLIME MOSQUERA DO Jul 16, 2018 09:50
[2018-07-16 10:40] LABS: BASOPHILS % (AUTO) 0 % (0-10); EOSINOPHILS # (AUTO) 0.2 10^3/uL (0.0-0.3); EOSINOPHILS % (AUTO) 2 % (0-10); HEMATOCRIT 37 % (35-52); LYMPHOCYTES # (AUTO) 1.6 X 10^3 (1.0-4.0); LYMPHOCYTES % (AUTO) 16 % (12-44); MEAN CORPUSCULAR HEMOGLOBIN 28 PG (25-34); MEAN CORPUSCULAR HGB CONC 32 G/DL (32-36); MEAN CORPUSCULAR VOLUME 87 FL (80-99); MEAN PLATELET VOLUME 10.2 FL (7.4-10.4); MONOCYTES # (AUTO) 0.9 X 10^3 (0.0-1.0); MONOCYTES % (AUTO) 9 % (0-12); NEUTROPHILS # (AUTO) 7.2 X 10^3 (1.8-7.8); NEUTROPHILS % (AUTO) 73 % (42-75); PLATELET COUNT 327 10^3/uL (130-400); RED CELL DISTRIBUTION WIDTH 15.9 % (10.0-14.5)
[2018-07-16 10:57] LABS: INR 2.5 (0.8-1.4); PROTHROMBIN TIME PATIENT 28.1 SEC (12.2-14.7)
[2018-07-16 11:08] LABS: ALBUMIN 3.5 GM/DL (3.2-4.5); BILIRUBIN,TOTAL 0.5 MG/DL (0.1-1.0); CALCIUM 9.3 MG/DL (8.5-10.1); CREATININE SERUM 1.25 MG/DL (0.60-1.30); TOTAL PROTEIN 6.3 GM/DL (6.4-8.2)
--- NOTE | 2018-07-16 11:49 | ST Cognitive Linguistic Eval ---
Speech Evaluation-General Medical Diagnosis CVA Onset Date: Jul 16, 2018 Therapy Diagnosis Therapy Diagnosis: Cognitive-communication Precautions Precautions/Isolations: Fall Prevention, Standard Precautions Referral Referring Physician: Dr. Mosquera Medical History Reviewed History: Yes Social History Current Living Status: Alone Speech PLF-Current Status Prior Level of Function The patient lived home alone where she was independent for her daily needs. Subjective The patient was alert and cooperative with the cognitive assessment. Language Eval: Auditory Comprehends Simple Yes/No Ques: Functional Indent/Objects Multiple [place]: Functional Ident/Pics in Multiple [place]: Functional Follows 1-Step Commands: Functional Follows Complex Directions: Functional Follows General Conversations: Functional Language Eval: Verbal Language Completes Spontaneous Greeting: Functional Produces Auto, Serial Info: Functional Imitates Simple Words/Phrases: Functional Word Finding: Functional Requests Basic Needs: Functional States Basic Personal Info: Functional Expresses Complex Ideas: Functional Objective Cognitive Domain Attention: WNL Memory: WNL Problem Solving: Functional Executive Functions: WNL Visuospatial Skills: Mild Clock Drawing Severity Rating: Mild The patient has reported "floaters" in her eye just prior to coming to the ED. Objective Formal/Standardized Tests Frankie Cognitive Assessment (MOCA) Results Visuospatial/Executive: 4/5, Namin/3, Memory: Immediate 5/5, Delayed 4/5 with cues, Attention: 6/6, Language: 3/3, Abstraction: 2/2, Orientation: 6/6 Oral Motor/Speech Production Within Functional Limits Impression The patient is a pleasant 73 year old female who was admitted to the hospital s/ p CVA. The patient was given the MOCA with normal range score results for all areas of assessment. The patient does not need skilled ST at this time. Speech-Plan Patient/Family Goals Patient/Family Goals: The patient plans on returning home upon hospital discharge. Treatment Plan Speech Therapy Treatment Plan: Discontinue ST The patient does not require skilled ST at this time. Treatment Duration: Jul 16, 2018 Frequency: 1 time per week Estimated Hrs Per Day: .25 hour per day Rehab Potential: Good Barriers to Learning: None identified Pt/Family Agrees to Plan: Yes Safety Risks/Education Teaching Recipient: Patient Teaching Methods: Discussion Response to Teaching: Verbalize Understanding Education Topics Provided: Safety within her room. Time Speech Therapy Time In: 11:00 Speech Therapy Time Out: 11:15 Total Billed Time: 15 Billed Treatment Time 1, SPSNDCOMP No AURA,BILLIE ST Jul 16, 2018 11:49
[2018-07-16] MEDS ORDERED: KCL 20 MEQ TAB (K-DUR) PO NR (12:15)
--- NOTE | 2018-07-16 13:07 | Consultation-Cardiology ---
HPI-Cardiology Cardiology Consultation: Date of Consultation 07/16/18 Time Seen by a Provider: 09:15 Date of Admission Attending Physician Slime Mosquera DO Admitting Physician [facility] Consulting Physician DIMITRI OLVERA MD, MA, FACP, FAC, [facility], [facility] Physician requesting consult: Dr Mosquera HPI: Chief Complaint: Reason for consultation: Acute CVA Ms. Taveras is a 73 year old female admitted to [facility] from the ED. She reports 2 days ago she felt she was having a floater in her left eye. She reports it progressively got worse to where she felt a "blind" was being closed over her eye and then she lost sight. She reports she has regained some vision, but still has no peripheral vision of her left eye. She denies any c/o CP, palpitations, syncope, near syncope. She has chronic mild exertional dyspnea, but this is unchanged. She reports in November when she was diagnosed with a clot to her right kidney she did have some generalized weakness and poor balance for which she was using a walker, but has improved to where she is using a cane. She denies and dysphagia. She denies any unilateral weakness. She reports she follow with Daniel Meade APRN at [facility]. She does report she is on warfarin tx since November and it is followed by [facility]. She smokes cigs approx 1 PPD. Review of Systems-Cardiology Review of Systems Constitutional: No chills, No fever, No malaise Eyes: As described under HPI Ears/Nose/Throat: No epistaxis, No recent hearing loss, No ulcerations Respiratory: As described under HPI Cardiovascular: As described under HPI Gastrointestinal: No constipation; diarrhea; No nausea, No vomiting Genitourinary: No dysuria, No hematuria Musculoskeletal: joint pain (chronic) Skin: No rash, No ulcerations Psychiatric/Neurological: As described under HPI, depression; No syncope Hematologic: easy bruising All Other Systems Reviewed Negative Unless Noted: Yes [id number] Hx Patient Social History Alcohol Use: Denies Use Recreational Drug Use: No Smoking Status: Current Everyday Smoker Type Used: Cigarettes 2nd Hand Smoke Exposure: Yes Recent Foreign Travel: No Recent Infectious Disease Expo: No Physical Abuse Screen: No Sexual Abuse: No Immunizations Up To Date Date of Pneumonia Vaccine: Dec 22, 2008 Date of Influenza Vaccine: Dec 23, 2011 Past Medical History PMH As described under Assessment. Family Medical History Family Medical History: She reports her son has CAD with placement of 2 stents in the past. She reports "all the women in my family have had strokes". Family History: Patient reports no known family medical history. Allergies and Home Medications Allergies Coded Allergies: No Known Drug Allergies (Verified , 10/21/08) Home Medications Allopurinol 100 Mg Tablet, 100 MG PO DAILY, (Reported) Atorvastatin Calcium 20 Mg Tablet, 20 MG PO HS, (Reported) LAST FILLED #30 11-9-18 Diphenoxylate HCl/Atropine 1 Each Tablet, 1 TAB PO Q6H PRN for DIARRHEA, ( Reported) Fluoxetine HCl 40 Mg Capsule, 40 MG PO DAILY, (Reported) Gabapentin 100 Mg Capsule, 100 MG PO TID, (Reported) Hydrocodone/Acetaminophen 1 Each Tablet, 1 TAB PO TID PRN for PAIN-MODERATE, ( Reported) Hydroxychloroquine Sulfate 200 Mg Tablet, 400 MG PO DAILY, (Reported) TAKES 2 (200MG) TABLETS Ondansetron HCl 4 Mg Tablet, 4 MG PO Q6H PRN for NAUSEA/VOMITING-1ST LINE, ( Reported) Prednisone 10 Mg Tab, 10 MG PO DAILY, (Reported) Warfarin Sodium 5 Mg Tablet, 5 MG PO 1800, (Reported) Patient Home Medication List Home Medication List Reviewed: Yes Physical Exam-Cardiology Physical Exam Vital Signs/I&O 07/16/18 07/16/18 07/16/18 07/16/18 01:41 03:22 06:17 07:00 Temp 98.5 98.7 Pulse 82 91 88 90 Resp 20 20 B/P (MAP) 150/81 (104) 138/79 (98) Pulse Ox 95 96 O2 Delivery Room Air Room Air 07/16/18 07/16/18 08:00 12:43 Temp 99.2 Pulse 90 104 Resp 20 B/P (MAP) 152/86 (108) Pulse Ox 96 O2 Delivery Room Air 07/16/18 00:00 Intake Total 430 ml Output Total 125 ml Balance 305 ml Capillary Refill : Less Than 3 Seconds Constitutional: AAO x 3, well-developed, well-nourished HEENT: hearing is well preserved, oral hygience is good Neck: carotid bruit, carotid pulses are 2 + bilaterally Respiratory: No accessory muscle use; chest expansion is symmetric, chest is bilaterally symmetric, other (prolonged expiratory phase) Cardiovascular: regular rate-rhythm; No JVD; S1 and S2 Gastrointestinal: No tender; soft, round, audible bowel sounds Rectal: deferred Extremities: other (RLE visibly larger than left (reports chronic)) Neurologic/Psychiatric: oriented x 3, other (L-sided visual field cut in both eyes) Skin: No rash, No ulcerations Data Review Labs Laboratory Tests 07/16/18 04:25: Triglycerides Level 132, Cholesterol Level 177, LDL Cholesterol Direct 113, VLDL Cholesterol 26, HDL Cholesterol 38L, Thyroid Stimulating Hormone (TSH) 1.62 07/16/18 10:25: White Blood Count 10.0, Red Blood Count 4.26L, Hemoglobin 12.0, Hematocrit 37, Mean Corpuscular Volume 87, Mean Corpuscular Hemoglobin 28, Mean Corpuscular Hemoglobin Concent 32, Red Cell Distribution Width 15.9H, Platelet Count 327, Mean Platelet Volume 10.2, Neutrophils (%) (Auto) 73, Lymphocytes (%) (Auto) 16 , Monocytes (%) (Auto) 9, Eosinophils (%) (Auto) 2, Basophils (%) (Auto) 0, Neutrophils # (Auto) 7.2, Lymphocytes # (Auto) 1.6, Monocytes # (Auto) 0.9, Eosinophils # (Auto) 0.2, Basophils # (Auto) 0.0, Prothrombin Time 28.1H, INR Comment 2.5H, Sodium Level 140, Potassium Level 3.0L, Chloride Level 105, Carbon Dioxide Level 24, Anion Gap 11, Blood Urea Nitrogen 16, Creatinine 1.25, Estimat Glomerular Filtration Rate 42, BUN/Creatinine Ratio 13, Glucose Level 95 , Calcium Level 9.3, Corrected Calcium 9.7, Total Bilirubin 0.5, Aspartate Amino Transf (AST/SGOT) 15, Alanine Aminotransferase (ALT/SGPT) 16, Alkaline Phosphatase 81, Total Protein 6.3L, Albumin 3.5 Microbiology 07/15/18 Urine Culture - Preliminary, Resulted Gram Negative Darnell A/P-Cardiology Assessment/Admission Diagnosis CVA with L homonymous hemianopsia - small to moderate-sized area of acute/ subacute infarct involving the right occipital lobe. There is no evidence of intra-cranial hemorrhage, brain herniation, or midline shift. (Per CT of the head on 07-15-18). Resulting in left sided peripheral vision loss - management of stroke is per stroke services Carotid artery disease - Plaquing is visualized in the carotid bifurcation on both sides, right worse than left. On the right side, the ratio suggests a stenosis between 50 and 70%. On the left side, there is no significant stenosis. Right vertebral artery is patent. Left vertebral artery is not visualized. Per u/s of 07-15- UTI - management per medical services Echocardiogram of Nov [address] Calzada showed LVEF 55% with mild MR Cardiac cath of July [address] Olvera showed multi-vessel dz - 60-70% mid-LAD involving origin of relatively sm caliber diag branch. 50-60% L Cx. RCA - large and dominant with 50% stenosis mid-vessel and 60% distal. LVEF 60%. Referred to Dr. 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 at that time Chronic diarrhea Reports chronic lymphedema to right leg Depression Lupus Gout Family h/o CAD (son has had coronary stenting; mother has had CVA) Discussion and Recomendations * Given h/o renal a embolus and now thromboembolic CVA, PAF is suspected. Continue warfarin; resume in lower dose when INR returns to therapeutic range of 2-3 * Echo * Aspirin because of carotid art disease * Monitor labs Clinical Quality Measures DVT/VTE Risk/Contraindication: Risk Factor Score Per Nursin RFS Level Per Nursing on Admit: 4+=Very High DIMITRI OLVERA MD FACP FAC CCDS Jul 16, 2018 13:07
[2018-07-16] MEDS ORDERED: ASPIRIN 81 MG CHEW (CHILDREN'S ASA) PO NR (13:15)
[2018-07-16] MEDS: GABAPENTIN 100 MG (NEURONTIN) CAP PO SCH ×2 (14:13→22:00)
[2018-07-16] MEDS: HYDROcodone/APAP 5 MG/325 MG (LORTAB) TAB PO PRN (14:14)
--- NOTE | 2018-07-16 14:21 | Physical Therapy Evaluation ---
PT Evaluation-General Medical Diagnosis Admission Date Jul 15, 2018 at 14:10 Medical Diagnosis: CVA Onset Date: Jul 16, 2018 Therapy Diagnosis Therapy Diagnosis: weakness Height/Weight Height (Feet): 5 Height (Inches): 0.00 Weight (Pounds): 161 Weight (Ounces): 7.0 Precautions Precautions/Isolations: Fall Prevention, Standard Precautions Weight Bear Status Right Lower Extremity: Right Full Weight Bearing Left Lower Extremity: Left Full Weight Bearing Referral Physician: Eveline Reason for Referral: Evaluation/Treatment Medical History Additional Medical History hx of right ankle fx, heart surgery, DJD B Knees, cervical CA. Current History Pt admitted with complaints of not being able to see out of her left eye and abdominal pain Reviewed History: Yes Social History Home: Single Level Current Living Status: Children (son) Prior/Core FIM Prior Level of Function Therapy Code Descriptions/Definitions Functional [place] Measure: 0=Not Assessed/NA 4=Minimal Assistance 1=Total Assistance 5=Supervision or Setup 2=Maximal Assistance 6=Modified [place] 3=Moderate Assistance 7=Complete [place] Therapy Quality Codes: 6 Independent with activity with or without an assistive device 5 Patient requires set up or clean up by helper. Patient completes activity by themselves 4 Supervision or touching assist (CGA). [place] provide cues , steadying assist 3 The helper provides less than half the effort to complete the activity 2 The helper provides more than half the effort to complete the activity 1 Dependent. The helper does all the effort to complete an activity 7 Patient refused to complete or attempt activity 9 The patient did not perform the activity before the current illness or injury 88 Not attempted due to Medical conditions or safety concerns Functional Abilities and Goals: Independent: Patient completed the activities by him/herself, with or without an assistive device, with no assistance from a helper. Needed Some Help: Patient needed partial assistance from another person to complete activities. Dependent: A helper completed the activities for the patient. Unknown: Not Applicable: Bed Mobility: 7 Transfers (B,C,W/C) (FIM): 7 Gait: 6 Pt reports she was indep at home previously; reports she used a cane intermittently PT Evaluation-Current Subjective Reports she wants to go home. Reports her only complaint is that she can't see out of her left eye Objective Patient Orientation: Person, Place, Time, Situation Problem Solving: Fair ROM/Strength ROM Lower Extremities wNL Strength Lower Extremities WNL Integumentary/Posture Integumentary refer to nursing notes. Bowel Incontinence: No Posture normal and symmetrical Neuromuscular (Tone, Coordination, Reflexes) functional Sensory Vision: reports she cannot see out of her left eye Hearing: Functional Hand Dominance: Right Sensation Right Lower Extremit: Intact Sensation Left Lower Extremity: Intact Transfers Therapy Code Descriptions/Definitions Functional [place] Measure: 0=Not Assessed/NA 4=Minimal Assistance 1=Total Assistance 5=Supervision or Setup 2=Maximal Assistance 6=Modified [place] 3=Moderate Assistance 7=Complete [place] Transfers (B, C, W/C) (FIM): 5 Supine to/from Sit: 5 Sit to/from Stand: 5 SBA with all functional transfers; pt is indep with bed mobility. Balance Sitting Static: Good Sitting Dynamic: Good Standing Static: Good Standing Dynamic: Good Treatment PT eval. Pt transferred out of bed and stood at EOB all without assist, only required SBA. Assessment/Needs Pt presents with complaints of not being able to see out of left eye. She may benefit from skilled PT to address functional safety and mobility prior to returning home Rehab Potential: Good PT Custody Officer Goals Mcfp Goals PT Custody Officer Goals Time Frame: Jul 20, 2018 Transfers (B,C,W/C) (FIM): 7 Gait (FIM): 6 PT Plan Problem List Problem List: Activity Tolerance, Functional Strength, Safety Treatment/Plan Treatment Plan: Continue Plan of Care Treatment Plan: Functional Activity Ghada, Functional Strength, Gait, Safety Treatment Duration: Jul 20, 2018 Frequency: 6 times per week Estimated Hrs Per Day: .25 hour per day Patient and/or Family Agrees t: Yes Safety Risks/Education Patient Education: Safety Issues Teaching Recipient: Patient Teaching Methods: Discussion Response to Teaching: Reinforcement Needed Time/GCodes Time In: 1350 Time Out: 1405 Total Billed Treatment Time: 15 Total Billed Treatment visit EVL 15 MARIO SAM PT Jul 16, 2018 14:21
--- NOTE | 2018-07-16 14:53 | Occupational Therapy Eval ---
OT Evaluation-General/PLF Medical Diagnosis Admission Date Jul 15, 2018 at 14:10 Medical Diagnosis: CVA Onset Date: Jul 16, 2018 Therapy Diagnosis Therapy Diagnosis: impaired ADLs and mobility Height/Weight Height (Feet): 5 Height (Inches): 0.00 Weight (Pounds): 161 Weight (Ounces): 7.0 Precautions Precautions/Isolations: Fall Prevention, Standard Precautions Safety Interventions: Bed Exit Alarm Referral Physician: Eveline Referral Reason: Activity Tolerance, Self Care, Evaluation/Treatment, Strengthening/ROM Medical History Pertinent Medical History: CAD, HTN Additional Medical History lupus, R kidney failure, hysterectomy, abdominal sk, cervical cancer, Reviewed History: Yes Social History Home: Single Level Current Living Status: Children (son) Entry Into Home: Stairs Without Railing Steps Into Home: 1 ADL-Prior Level of Function Therapy Code Descriptions/Definitions Functional [place] Measure: 0=Not Assessed/NA 4=Minimal Assistance 1=Total Assistance 5=Supervision or Setup 2=Maximal Assistance 6=Modified [place] 3=Moderate Assistance 7=Complete [place] Therapy Quality Codes: 6 Independent with activity with or without an assistive device 5 Patient requires set up or clean up by helper. Patient completes activity by themselves 4 Supervision or touching assist (CGA). [place] provide cues , steadying assist 3 The helper provides less than half the effort to complete the activity 2 The helper provides more than half the effort to complete the activity 1 Dependent. The helper does all the effort to complete an activity 7 Patient refused to complete or attempt activity 9 The patient did not perform the activity before the current illness or injury 88 Not attempted due to Medical conditions or safety concerns Functional Abilities and Goals: Independent: Patient completed the activities by him/herself, with or without an assistive device, with no assistance from a helper. Needed Some Help: Patient needed partial assistance from another person to complete activities. Dependent: A helper completed the activities for the patient. 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 pt agreed to OT evaluation session Pain Numeric Pain Scale: 0-No Pain Comment: pt stated she just recived a pain pill from [facility] Mental Status/Objective Patient Orientation: Person, Place, Time, Eyes Open, Situation, Normal For Age Current Glasses/Contacts: Yes Hearing Aids: No Hand Dominance: Right Upper Extremity ROM liliya UE WFL Upper Extremity Coordination liliya UE WFL Upper Extremity Sensation liliya UE WFL Upper Extremity Strength left UE 5/5 Right UE 4/5 pt stated she has had decrease right UE strength from pervious fall (2 years ago) ADL-Treatment Therapy Code Descriptions/Definitions Functional [place] Measure: 0=Not Assessed/NA 4=Minimal Assistance 1=Total Assistance 5=Supervision or Setup 2=Maximal Assistance 6=Modified [place] 3=Moderate Assistance 7=Complete [place] Therapy Quality Codes: 6 Independent with activity with or without an assistive device 5 Patient requires set up or clean up by helper. Patient completes activity by themselves 4 Supervision or touching assist (CGA). [place] provide cues , steadying assist 3 The helper provides less than half the effort to complete the activity 2 The helper provides more than half the effort to complete the activity 1 Dependent. The helper does all the effort to complete an activity 7 Patient refused to complete or attempt activity 9 The patient did not perform the activity before the current illness or injury 88 Not attempted due to Medical conditions or safety concerns Education Teaching Recipient: Patient Teaching Methods: Discussion Response to Teaching: Verbalize Understanding OT Short Term Goals Short Term Goals Bathing(FIM): 5 1=Demonstrate adherence to instructed precautions during ADL tasks. 2=Patient will verbalize/demonstrate understanding of assistive devices/ modifications for ADL. 3=Patient will improve strength/tolerance for activity to enable patient to perform ADL's. OT Fdc Goals Hotel Registration Clerk Goals Bathing(FIM): 6 Lower Body Dressing(FIM): 6 Toileting(FIM): 6 Transfers (B,C,W/C) (FIM): 6 Toilet/Commode Transfer(FIM): 6 Tub Transfer(FIM): 6 1=Demonstrate adherence to instructed precautions during ADL tasks. 2=Patient will verbalize/demonstrate understanding of assistive devices/ modifications for ADL. 3=Patient will improve strength/tolerance for activity to enable patient to perform ADL's. OT Education/Plan Problem List/Assessment Assessment: Decreased UE Strength, Impaired I ADL's, Impaired Self-Care Skills 73 year old female presents with functional limitations affecting areas of ADL and functional transfers with deficits in vision and right UE strength.pt demo ability to perform UB/ LB dressing with supervision and toileting with SBA for safety using quad cane. vision test performed. noted left eye has 50% visional field cut on left side. pt would benefit from OT services to increase independence with ADLS and functional transfers. Discharge Recommendations Plan/Recommendations: Continue POC Therapy D/C Recommendations: Home w/ Family Support Treatment Plan/Plan of Care Treatment,Training & Education: Yes Patient would benefit from OT for education, treatment and training to promote independence in ADL's, mobility, safety and/or upper extremity function for ADL' s. Plan of Care: ADL Retraining, Functional Mobility, UE Funct Exercise/Act, Visual/Perceptual Retrain Treatment Duration: July 23, 2018 Frequency: 5 times per week Estimated Hrs Per Day: .25 hour per day Agreement: Yes Rehab Potential: Good Time/GCodes Start Time: 14:35 Stop Time: 14:55 Billed Treatment Time EVM 20 minutes DOMINGO HALL OT Jul 16, 2018 14:53
--- NOTE | 2018-07-16 15:43 | NUR ---
CM/SS, respond to consult, admission diagnosis subacute CVA. Patient sleeping soundly during two attempts to visit with her. Called son Jus Taveras who resides in [facility]. He said that patient had come to his house for [employer] and that the sons had opened a discussion about her moving to assisted living. She apparently has 3 pets, 2 cats and a dog, and Jus indicates the pets will be a hold up regarding any move. Jus has offered for her to come live with them, but he has four children and a large dog and so far patient has not indicated agreement. Patient's youngest son, Shubham Taveras, resides with her at this time. He is starting new employment so will not be with patient at all times. The eldest is Bebo Taveras who resides in [place]. Answered Jus's questions about [facility] to his satisfaction. He indicates patient has still been working some for [employer] work. 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 Jus has serious concerns about her continuing to drive, especially depending on the post CVA debilities. This may need to be addressed by physician directly with patient. Jus indicates probable hardship private paying for [facility]. Discussed [facility] application, Jus said that Bebo would be the most knowledgeable about patient's monies/assets. Anticipated visit from Bebo but he has not arrived thus far. Will inform Jus the Medicaid application will be left in patient's room along with instructions to access [facility] Patti Jane. Patient is established [facility] for primary care. Care Management team to followup for patient care plan, [facility] IRF, home with HHC, short term skilled placement. Patient has Medicare supplement insurance [employer] [place], challenging for discharge options.
--- NOTE | 2018-07-16 16:29 | NUR ---
CM/SS, patient awake and we visited. She appears fully oriented, alert, visits appropriately, no cognition impairment noted. She reports she has no function deficits except for vision but that she is very tired. 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 Just finished tax season Friday with [employer]. Her vehicle is not functional at this time and she stated she would not drive until eyesight was clear. We did discuss assisted living, patient is not opposed to that except for the finances. Patient has a dog she would like to take with her to assisted living, medium and well groomed, likely acceptable. Patient also indicates she already HAS [facility], our records do not reflect that and her purse is not here to obtain card copy. [place] [employer] reached out to [facility] Financial Counselors to see if they would check KMAP to confirm. Discharge direction to be determined by physician and therapy. If home at discharge, patient and family can continue to pursue assisted living options and [facility] if that is not already in place. [facility] application left in room for sons.
[2018-07-16] MEDS: ATORVASTATIN 20 MG (LIPITOR) TABLET PO SCH (22:00)
[2018-07-16] MEDS: ONDANSETRON 4 MG (ZOFRAN) ORAL DISSOLVE TAB PO PRN (23:40)
[2018-07-17 00:59] VITALS: BP 131/76
[2018-07-17 04:00] VITALS: BP 161/70
[2018-07-17 06:03] LABS: BASOPHILS % (AUTO) 0 % (0-10); EOSINOPHILS # (AUTO) 0.1 10^3/uL (0.0-0.3); EOSINOPHILS % (AUTO) 2 % (0-10); HEMATOCRIT 38 % (35-52); HEMOGLOBIN 12.1 G/DL (11.5-16.0); LYMPHOCYTES # (AUTO) 0.9 X 10^3 (1.0-4.0); LYMPHOCYTES % (AUTO) 10 % (12-44); MEAN CORPUSCULAR HEMOGLOBIN 28 PG (25-34); MEAN CORPUSCULAR HGB CONC 32 G/DL (32-36); MEAN CORPUSCULAR VOLUME 88 FL (80-99); MEAN PLATELET VOLUME 10.5 FL (7.4-10.4); MONOCYTES # (AUTO) 0.6 X 10^3 (0.0-1.0); MONOCYTES % (AUTO) 7 % (0-12); NEUTROPHILS # (AUTO) 7.4 X 10^3 (1.8-7.8); NEUTROPHILS % (AUTO) 81 % (42-75); PLATELET COUNT 290 10^3/uL (130-400); RED CELL DISTRIBUTION WIDTH 15.9 % (10.0-14.5); WHITE BLOOD COUNT 9.1 10^3/uL (4.3-11.0)
[2018-07-17] MEDS: DIPHENOXYLATE/ATROPINE 2.5MG/0.025MG (LOMOTIL) TAB PO PRN (06:03)
[2018-07-17] MEDS: predniSONE 10 MG TAB PO SCH (06:04)
[2018-07-17 06:18] LABS: INR 1.9 (0.8-1.4)
[2018-07-17 06:33] LABS: ALBUMIN 3.4 GM/DL (3.2-4.5); BILIRUBIN,TOTAL 0.6 MG/DL (0.1-1.0); CALCIUM 9.2 MG/DL (8.5-10.1); CREATININE SERUM 1.25 MG/DL (0.60-1.30); MAGNESIUM 1.7 MG/DL (1.8-2.4); POTASSIUM 3.5 MMOL/L (3.6-5.0); TOTAL PROTEIN 6.2 GM/DL (6.4-8.2)
[2018-07-17 08:00] VITALS: BP 154/79
[2018-07-17] MEDS: GABAPENTIN 100 MG (NEURONTIN) CAP PO SCH ×3 (08:15→22:22)
[2018-07-17] MEDS: ACETAMINOPHEN 500 MG TAB (TYLENOL) PO PRN (08:15)
[2018-07-17] MEDS: FLUoxetine HCL 20 MG (PROzac) CAP PO SCH (08:15)
[2018-07-17] MEDS: HYDROXYCHLOROQUINE 200 MG (PLAQUENIL) TAB PO SCH (08:15)
[2018-07-17] MEDS: ALLOPURINOL 100 MG (ZYLOPRIM) TAB PO SCH (08:16)
[2018-07-17] MEDS: ASPIRIN 81 MG CHEW (CHILDREN'S ASA) PO SCH (08:17)
[2018-07-17] MEDS: ONDANSETRON 4 MG (ZOFRAN) ORAL DISSOLVE TAB PO PRN (08:21)
--- NOTE | 2018-07-17 08:57 | Physical Therapy Daily Note ---
PT Daily Note-Current Subjective Patient in bed pre tx, agrees to PT, states she has a headache of 5/10. Appearance Patient in recliner post tx with nurse call, phone, tray, all needs met. Mental Status Patient Orientation: Person, Place, Situation Transfers Therapy Code Descriptions/Definitions Functional [place] Measure: 0=Not Assessed/NA 4=Minimal Assistance 1=Total Assistance 5=Supervision or Setup 2=Maximal Assistance 6=Modified [place] 3=Moderate Assistance 7=Complete [place] Therapy Quality Codes: 6 Independent with activity with or without an assistive device 5 Patient requires set up or clean up by helper. Patient completes activity by themselves 4 Supervision or touching assist (CGA). [place] provide cues , steadying assist 3 The helper provides less than half the effort to complete the activity 2 The helper provides more than half the effort to complete the activity 1 Dependent. The helper does all the effort to complete an activity 7 Patient refused to complete or attempt activity 9 The patient did not perform the activity before the current illness or injury 88 Not attempted due to Medical conditions or safety concerns Transfers (B, C, W/C) (FIM): 4 Scootin Rollin Supine to/from Sit: 5 Sit to/from Stand: 4 Bed to/from Chair: 4 CGA for sit to stand and transfers, needs cues for direction due to left visual impairment. Weight Bearing Right Lower Extremity: Right Full Weight Bearing Left Lower Extremity: Left Full Weight Bearing Gait Training Gait (FIM): 2 Distance: 50' Gait Level of Assist: 4 Gait Persons Needed: 1 Gait Assistive Device: Cane Small Base Quad Patient needs close CGA for ambulation, she is unsteady but did not completely lose balance and need assist from therapist to recover. Ambulation is slow. She inquires about getting an eye patch to decrease disorientation. Exercises Seated Therapy Exercises: Ankle pumps, Long arc quads Seated Reps: 15 Treatments bed mobility and transfers, ambulation, LE exercises Assessment Current Status: Fair Progress Patient was able to ambulate today, unsteady, uses quad cane and railing in the hallway when available. PT Field Logistics Coordinator Goals [facility] Goals PT Field Logistics Coordinator Goals Time Frame: Jul 20, 2018 Transfers (B,C,W/C) (FIM): 7 Gait (FIM): 6 PT Plan Problem List Problem List: Activity Tolerance, Functional Strength, Safety, Balance, Gait, Transfer Treatment/Plan Treatment Plan: Continue Plan of Care Treatment Plan: Functional Activity Ghada, Functional Strength, Gait, Safety Treatment Duration: Jul 20, 2018 Frequency: 6 times per week Estimated Hrs Per Day: .25 hour per day Patient and/or Family Agrees t: Yes Safety Risks/Education Patient Education: Gait Training, Transfer Techniques, Correct Positioning, Safety Issues Teaching Recipient: Patient Teaching Methods: Demonstration, Discussion Response to Teaching: Reinforcement Needed Time/GCodes Time In: 0820 Time Out: 0833 Total Billed Treatment Time: 13 Total Billed Treatment 1 visit FA ROSALES MEDINA PT Jul 17, 2018 08:57
--- NOTE | 2018-07-17 09:58 | Progress Note-Hospitalist ---
Subjective HPI/CC On Admission Date Seen by Provider: Jul 17, 2018 Time Seen by Provider: 09:30 Chief Complaint: Completed occipital right occipital infarct HPI: This is [id number] that presented after a long delay after suffering loss of left peripheral vision. She reports that it did not accompany any type of pain or headache and no other weakness anywhere in her body. She is maintained on Coumadin for an uncertain source or medical condition so we will consult cardiology to evaluate and research that. She was also taking an aspirin at home and a statin therapy so it is concerning that she suffers and infarct confirmed on CT scan that is completed and not a tPA candidate while being on anti platelet treatment also. At this current time pt is having some loose stools, she takes probiotic at home and that was restarted along with other medications. Subjective/Events-last exam Carotid stenosis noted but not critical Son lives in so if she needs vascular care she will want to go to She has a [employer] [place] so will need to obtain prior authorization for admission to inpatient rehab Left sided peripheral vision really causes a problem and places her at a fall risk and she has had falls in the past at home so will pursue inpatient rehab as PT is recommended also Smoking cessation counseled Reviewed cardiology note Denies any significant pain at this time Checked meds and labs and therapy notes Review of Systems General: Fatigue HEENT: Visual Changes Neurological: Weakness, Incoordination Objective Exam Vital Signs Vital Signs Date Time Temp Pulse Resp B/P (MAP) Pulse Ox O2 Delivery O2 Flow Rate FiO2 07/17/18 15:23 98.3 89 20 159/74 (102) 97 Room Air Capillary Refill : Less Than 3 Seconds General Appearance: No Apparent Distress, WD/WN, Chronically ill HEENT: PERRL/EOMI, TMs Normal, Normal ENT Inspection, Pharynx Normal, Moist Mucous Membranes, Other (left peripheral vision loss noted) Neck: Full Range of Motion, Normal Inspection, Non Tender Respiratory: Chest Non Tender, Lungs Clear, Normal Breath Sounds, No Accessory Muscle Use, No Respiratory Distress Cardiovascular: Regular Rate, Rhythm, No Edema, No Gallop, No JVD, No Murmur, Normal Peripheral Pulses Gastrointestinal: Normal Bowel Sounds, No Organomegaly, No Pulsatile Mass, Non Tender, Soft Back: Normal Inspection, No CVA Tenderness, No Vertebral Tenderness Extremity: Normal Capillary Refill, Normal Inspection, Normal Range of Motion, Non Tender, No Calf Tenderness, No Pedal Edema Neurologic/Psychiatric: Alert, Oriented x3, No Motor/Sensory Deficits, Normal Mood/Affect Skin: Normal Color, Warm/Dry Lymphatic: No Adenopathy Results/Procedures Lab Laboratory Tests 07/17/18 05:28 Patient resulted labs reviewed. 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 acute on chronic Plan: Appreciate Cardiology PT/OT ASA Statin Coumadin Check labs in am Diagnosis/Problems Diagnosis/Problems (1) CVA (cerebral vascular accident) Status: Acute (2) Lupus (systemic lupus erythematosus) Status: Chronic Qualifiers: Systemic lupus erythematosus type: unspecified Systemic lupus erythematosus organ involvement: unspecified Qualified Codes: M32.9 - Systemic lupus erythematosus, unspecified (3) Smoker Status: Chronic (4) Hypertension Status: Chronic Qualifiers: Hypertension type: essential hypertension Qualified Codes: I10 - Essential (primary) hypertension (5) Hyperlipidemia Status: Chronic Qualifiers: Hyperlipidemia type: mixed 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 Qualified Codes: E78.2 - 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 (6) Anticoagulated on Coumadin Status: Chronic (7) Thrombosis, renal vein Clinical Quality Measures DVT/VTE Risk/Contraindication: Risk Factor Score Per Nursin RFS Level Per Nursing on Admit: 4+=Very High SERINA DEL REAL DO Jul 17, 2018 09:58
--- NOTE | 2018-07-17 10:13 | Progress Note-Cardiology ---
Cardiology SOAP Progress Note Subjective: No new symptoms No cp or palp or syncope or shortness of breath Objective: I&O/Vital Signs 07/17/18 07/17/18 07/17/18 07/17/18 00:59 01:00 04:00 07:00 Temp 97.9 97.8 Pulse 102 103 102 101 Resp 20 20 B/P (MAP) 131/76 (94) 161/70 (100) Pulse Ox 96 99 O2 Delivery Room Air Room Air 07/17/18 08:00 Temp 98.6 Pulse 103 Resp 20 B/P (MAP) 154/79 (104) Pulse Ox 96 O2 Delivery Room Air 07/17/18 00:00 Intake Total 790 ml Balance 790 ml Weight (Pounds): 161 Weight (Ounces): 7.0 Weight (Calculated Kilograms): [id number] Constitutional: AAO x 3, well-developed, well-nourished Respiratory: No accessory muscle use; chest expansion is symmetric, chest is bilaterally symmetric, other (prolonged expiratory phase) Cardiovascular: regular rate-rhythm; No JVD; S1 and S2 Gastrointestional: No tender; soft, round, audible bowel sounds Extremities: other (RLE visibly larger than left (reports chronic)) Neurologic/Psychiatric: oriented x 3, other (L-sided visual field cut in both eyes) Skin: No rash, No ulcerations Results/Procedures: Labs Laboratory Tests 07/16/18 10:25: White Blood Count 10.0, Red Blood Count 4.26L, Hemoglobin 12.0, Hematocrit 37, Mean Corpuscular Volume 87, Mean Corpuscular Hemoglobin 28, Mean Corpuscular Hemoglobin Concent 32, Red Cell Distribution Width 15.9H, Platelet Count 327, Mean Platelet Volume 10.2, Neutrophils (%) (Auto) 73, Lymphocytes (%) (Auto) 16 , Monocytes (%) (Auto) 9, Eosinophils (%) (Auto) 2, Basophils (%) (Auto) 0, Neutrophils # (Auto) 7.2, Lymphocytes # (Auto) 1.6, Monocytes # (Auto) 0.9, Eosinophils # (Auto) 0.2, Basophils # (Auto) 0.0, Prothrombin Time 28.1H, INR Comment 2.5H, Sodium Level 140, Potassium Level 3.0L, Chloride Level 105, Carbon Dioxide Level 24, Anion Gap 11, Blood Urea Nitrogen 16, Creatinine 1.25, Estimat Glomerular Filtration Rate 42, BUN/Creatinine Ratio 13, Glucose Level 95 , Calcium Level 9.3, Corrected Calcium 9.7, Total Bilirubin 0.5, Aspartate Amino Transf (AST/SGOT) 15, Alanine Aminotransferase (ALT/SGPT) 16, Alkaline Phosphatase 81, Total Protein 6.3L, Albumin 3.5 07/17/18 05:28: White Blood Count 9.1, Red Blood Count 4.29L, Hemoglobin 12.1, Hematocrit 38, Mean Corpuscular Volume 88, Mean Corpuscular Hemoglobin 28, Mean Corpuscular Hemoglobin Concent 32, Red Cell Distribution Width 15.9H, Platelet Count 290, Mean Platelet Volume 10.5H, Neutrophils (%) (Auto) 81H, Lymphocytes (%) (Auto) 10L, Monocytes (%) (Auto) 7, Eosinophils (%) (Auto) 2, Basophils (%) (Auto) 0, Neutrophils # (Auto) 7.4, Lymphocytes # (Auto) 0.9L, Monocytes # (Auto) 0.6, Eosinophils # (Auto) 0.1, Basophils # (Auto) 0.0, Prothrombin Time 23.0H, INR Comment 1.9H, Sodium Level 140, Potassium Level 3.5L, Chloride Level 107, Carbon Dioxide Level 20L, Anion Gap 13, Blood Urea Nitrogen 18, Creatinine 1.25 , Estimat Glomerular Filtration Rate 42, BUN/Creatinine Ratio 14, Glucose Level 98, Calcium Level 9.2, Corrected Calcium 9.7, Total Bilirubin 0.6, Aspartate Amino Transf (AST/SGOT) 15, Alanine Aminotransferase (ALT/SGPT) 15, Alkaline Phosphatase 76, Total Protein 6.2L, Albumin 3.4, Magnesium Level 1.7L Microbiology 07/15/18 Urine Culture - Preliminary, Resulted Gram Negative [facility] Laboratory Tests 07/15/18 12:08 07/16/18 10:25 07/17/18 05:28 A/P: Assessment: CVA with L homonymous hemianopsia - small to moderate-sized area of acute/ subacute infarct involving the right occipital lobe. There is no evidence of intra-cranial hemorrhage, brain herniation, or midline shift on CT of the head on 07-15-18. Management of CVA is by Dr Mosquera Carotid artery disease - Plaquing is visualized in the carotid bifurcation on both sides, right worse than left. On the right side, the ratio suggests a stenosis between 50 and 70%. On the left side, there is no significant stenosis. Right vertebral artery is patent. Left vertebral artery is not visualized. Per u/s of 07-15-18 UTI - management by Dr Mosquera Echocardiogram of Nov [address] Calzada showed LVEF 55% with mild MR Cardiac cath of July [address] Olvera showed multi-vessel dz - 60-70% mid-LAD involving origin of relatively sm caliber diag branch. 50-60% L Cx. RCA - large and dominant with 50% stenosis mid-vessel and 60% distal. LVEF 60%. Referred to Dr. 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 Resume warfarin. I have advised very close f/u on INR as outpt ( with her pcp) and adjustment of dose based on INR. She understands * Outpt card f/u advised DIMITRI OLVERA MD FACP FACC CCDS Jul 17, 2018 10:13
[2018-07-17] MEDS ORDERED: KCL 20 MEQ TAB (K-DUR) PO NR (10:15)
[2018-07-17] MEDS: HYDROcodone/APAP 5 MG/325 MG (LORTAB) TAB PO PRN (11:31)
[2018-07-17 12:00] VITALS: BP 126/81
--- NOTE | 2018-07-17 14:01 | Occupational Ther Daily Note ---
OT Current Status-Daily Note Subjective Pt seen in room, up in bed, agreeable to OT. No pain mentioned. Appearance Alert, cooperative Mental Status/Objective Therapy Code Descriptions/Definitions Functional [place] Measure: 0=Not Assessed/NA 4=Minimal Assistance 1=Total Assistance 5=Supervision or Setup 2=Maximal Assistance 6=Modified [place] 3=Moderate Assistance 7=Complete [place] ADL-Treatment Pt education on vision process and how her vision loss on the left side comes from her brain, not her eyes and why a patch would not be helpful. Pt has difficulty moving her eyes past midline to the left and compensates at times by moving her head. Vision functional assessment shows significantly decreased peripheral vision L side and ability to see clearly only in central vision area. Difficulty scanning to read her menu and find food items. Difficulty reading because unable to easily scan to L visual field. Pt was able to reach for food items in her left visual field after prompting to find them and again had trouble looking past midline to the left. She had difficulty finding and reaching for her cane with her L hand so eye-hand coordination is impaired. Pt provided with therapeutic activities that she can do to work on scanning to the left side - she verbalized understanding them but said that they were difficult to do. Pt reported that she has been taking herself to the bathroom and was told that she needs to call for assistance due to increased fall risk. She mentioned that she was not able to find her room on the left side when she walked with PT earlier. Pt left up in bed, all needs met. Eating (FIM): 5 (Supervision, setup. Significant cues to find food items on L side of tray. Difficulty reading menu to order food. A little trouble getting food to her mouth using L hand) Education OT Patient Education: Modified ADL techniques, Purpose of tx/functional activities, Reviewed precautions, Safety issues Teaching Recipient: Patient Teaching Methods: Demonstration, Discussion Response to Teaching: Verbalize Understanding, Return Demonstration, Reinforcement Needed OT Short Term Goals Short Term Goals Bathing(FIM): 5 1=Demonstrate adherence to instructed precautions during ADL tasks. 2=Patient will verbalize/demonstrate understanding of assistive devices/ modifications for ADL. 3=Patient will improve strength/tolerance for activity to enable patient to perform ADL's. OT Nursing Home Goals Nursing Home Goals Bathing(FIM): 6 Lower Body Dressing(FIM): 6 Toileting(FIM): 6 Transfers (B,C,W/C) (FIM): 6 Toilet/Commode Transfer(FIM): 6 Tub Transfer(FIM): 6 1=Demonstrate adherence to instructed precautions during ADL tasks. 2=Patient will verbalize/demonstrate understanding of assistive devices/ modifications for ADL. 3=Patient will improve strength/tolerance for activity to enable patient to perform ADL's. OT Education/Plan Problem List/Assessment 73 year old female presents with functional limitations affecting areas of ADL and functional transfers with deficits in vision and right UE strength.pt demo ability to perform UB/ LB dressing with supervision and toileting with SBA for safety using quad cane. vision test performed. noted left eye has 50% visional field cut on left side. pt would benefit from OT services to increase independence with ADLS and functional transfers. Discharge Recommendations Plan/Recommendations: Continue POC Treatment Plan/Plan of Care Patient would benefit from OT for education, treatment and training to promote independence in ADL's, mobility, safety and/or upper extremity function for ADL' s. Plan of Care: ADL Retraining, Functional Mobility, UE Funct Exercise/Act, Visual/Perceptual Retrain Treatment Duration: July 23, 2018 Frequency: 5 times per week Estimated Hrs Per Day: .25 hour per day Agreement: Yes Rehab Potential: Good Time/GCodes Start Time: 12:55 Stop Time: 13:20 Total Time Billed (hr/min): 25 Billed Treatment Time visit, 15 minutes neuromotor, 10 minutes ADL JACQUELINE DOWD OT Jul 17, 2018 14:01
--- NOTE | 2018-07-17 14:19 | Occupational Ther Daily Note ---
OT Current Status-Daily Note Subjective Pt seen in room, up in bed, agreeable to OT. Appearance Alert, cooperative Mental Status/Objective Therapy Code Descriptions/Definitions Functional [place] Measure: 0=Not Assessed/NA 4=Minimal Assistance 1=Total Assistance 5=Supervision or Setup 2=Maximal Assistance 6=Modified [place] 3=Moderate Assistance 7=Complete [place] ADL-Treatment Returned to room to assess pt movement during ADLs and provide skilled cues and pt education for safe ADLs. pt able to sit up to EOB without difficulty but had some trouble finding her cane. Walked with close CGA and quad cane to bathroom, with one time LOB while turning (needed OT assist to correct). Toileted with CGA for standing and clothing management. Able to don Depends and pants with close supervision and CGA when standing to pull pants up. Donned shirt with setup but needed help with managing telemetry. Pt needed cues to find sink to brush her teeth. Pt educ to look at her L hand to take cap off toothpaste and put it on her toothbrush. CGA standing at sink for grooming. Pt educ to scan to L to comb hair on L side. Pt walked back to bed with CGA and cues, reported that she was very fatigued. Demonstrated some L neglect during ADLs. Continues to be fall risk. pt verbalized concerns about going home and being able to manage ADLs and not fall. Pt would benefit from intensive therapy on IRF. Pt left in bed, all needs met. Grooming (FIM): 4 (CGA) Upper Body (FIM): 5 (Setup, supervision, help with telemetry) Lower Body Dressing (FIM): 4 (CGA for balance) Toileting (FIM): 4 (CGA for clothing management) Toilet/Commode Transfer (FIM): 4 (CGA) Education OT Patient Education: Modified ADL techniques, Progress toward Goal/Update tx plan, Purpose of tx/functional activities, Reviewed precautions, Safety issues Teaching Recipient: Patient Teaching Methods: Demonstration, Discussion Response to Teaching: Verbalize Understanding, Return Demonstration, Reinforcement Needed OT Short Term Goals Short Term Goals Bathing(FIM): 5 1=Demonstrate adherence to instructed precautions during ADL tasks. 2=Patient will verbalize/demonstrate understanding of assistive devices/ modifications for ADL. 3=Patient will improve strength/tolerance for activity to enable patient to perform ADL's. OT Bow Maker Machine Tender Goals Skilled Nursing Goals Bathing(FIM): 6 Lower Body Dressing(FIM): 6 Toileting(FIM): 6 Transfers (B,C,W/C) (FIM): 6 Toilet/Commode Transfer(FIM): 6 Tub Transfer(FIM): 6 1=Demonstrate adherence to instructed precautions during ADL tasks. 2=Patient will verbalize/demonstrate understanding of assistive devices/ modifications for ADL. 3=Patient will improve strength/tolerance for activity to enable patient to perform ADL's. OT Education/Plan Problem List/Assessment 73 year old female presents with functional limitations affecting areas of ADL and functional transfers with deficits in vision and right UE strength.pt demo ability to perform UB/ LB dressing with supervision and toileting with SBA for safety using quad cane. vision test performed. noted left eye has 50% visional field cut on left side. pt would benefit from OT services to increase independence with ADLS and functional transfers. Discharge Recommendations Plan/Recommendations: Continue POC Therapy D/C Recommendations: Acute Rehab Treatment Plan/Plan of Care Patient would benefit from OT for education, treatment and training to promote independence in ADL's, mobility, safety and/or upper extremity function for ADL' s. Plan of Care: ADL Retraining, Functional Mobility, UE Funct Exercise/Act, Visual/Perceptual Retrain Treatment Duration: July 23, 2018 Frequency: 5 times per week Estimated Hrs Per Day: .25 hour per day Agreement: Yes Rehab Potential: Good Time/GCodes Start Time: 13:32 Stop Time: 13:47 Total Time Billed (hr/min): 15 Billed Treatment Time visit, 15 minutes ADL JACQUELINE DOWD OT Jul 17, 2018 14:19
[2018-07-17 15:23] VITALS: BP 159/74
--- NOTE | 2018-07-17 16:05 | NUR ---
IRF Evaluation: Order received to evaluate patient for the ARU. Chart reviewed and therapy findings discussed with PT/OT and Dr. Mosquera. Patient has been accepted to ARU, pending certification from [employer] [facility] Pre-certification process initiated and clinical information submitted to [employer]. Thank you for this referral.
[2018-07-17] MEDS: warFARin 5 MG (COUMADIN) TAB PO SCH (18:05)
[2018-07-17 19:02] VITALS: BP 160/74
[2018-07-17] MEDS: ATORVASTATIN 20 MG (LIPITOR) TABLET PO SCH (22:22)
[2018-07-18] VITALS (7 sets, daily range): BP systolic 123–188; BP diastolic 65–82
[2018-07-18 05:07] LABS: BASOPHILS % (AUTO) 0 % (0-10); EOSINOPHILS # (AUTO) 0.2 10^3/uL (0.0-0.3); EOSINOPHILS % (AUTO) 3 % (0-10); HEMATOCRIT 35 % (35-52); LYMPHOCYTES # (AUTO) 1.4 X 10^3 (1.0-4.0); LYMPHOCYTES % (AUTO) 19 % (12-44); MEAN CORPUSCULAR HEMOGLOBIN 28 PG (25-34); MEAN CORPUSCULAR HGB CONC 31 G/DL (32-36); MEAN CORPUSCULAR VOLUME 89 FL (80-99); MEAN PLATELET VOLUME 10.4 FL (7.4-10.4); MONOCYTES # (AUTO) 0.7 X 10^3 (0.0-1.0); MONOCYTES % (AUTO) 9 % (0-12); NEUTROPHILS # (AUTO) 4.9 X 10^3 (1.8-7.8); NEUTROPHILS % (AUTO) 68 % (42-75); PLATELET COUNT 292 10^3/uL (130-400); RED CELL DISTRIBUTION WIDTH 15.8 % (10.0-14.5); WHITE BLOOD COUNT 7.1 10^3/uL (4.3-11.0)
[2018-07-18 05:23] LABS: PROTHROMBIN TIME PATIENT 23.2 SEC (12.2-14.7)
[2018-07-18 05:29] LABS: ALBUMIN 3.4 GM/DL (3.2-4.5); BILIRUBIN,TOTAL 0.4 MG/DL (0.1-1.0); CREATININE SERUM 1.29 MG/DL (0.60-1.30); POTASSIUM 3.9 MMOL/L (3.6-5.0); TOTAL PROTEIN 5.9 GM/DL (6.4-8.2)
[2018-07-18] MEDS: DIPHENOXYLATE/ATROPINE 2.5MG/0.025MG (LOMOTIL) TAB PO PRN ×2 (06:46→12:41)
[2018-07-18] MEDS: predniSONE 10 MG TAB PO SCH (06:46)
[2018-07-18] MEDS: FLUoxetine HCL 20 MG (PROzac) CAP PO SCH (08:22)
[2018-07-18] MEDS: GABAPENTIN 100 MG (NEURONTIN) CAP PO SCH ×3 (08:22→21:54)
[2018-07-18] MEDS: HYDROXYCHLOROQUINE 200 MG (PLAQUENIL) TAB PO SCH (08:22)
[2018-07-18] MEDS: ALLOPURINOL 100 MG (ZYLOPRIM) TAB PO SCH (08:23)
[2018-07-18] MEDS: ASPIRIN 81 MG CHEW (CHILDREN'S ASA) PO SCH (08:23)
--- NOTE | 2018-07-18 08:28 | Progress Note-Hospitalist ---
Subjective HPI/CC On Admission Date Seen by Provider: Jul 18, 2018 Time Seen by Provider: 08:00 Chief Complaint: Completed occipital right occipital infarct HPI: This is 73yoWF that presented after a long delay after suffering loss of left peripheral vision. She reports that it did not accompany any type of pain or headache and no other weakness anywhere in her body. She is maintained on Coumadin for an uncertain source or medical condition so we will consult cardiology to evaluate and research that. She was also taking an aspirin at home and a statin therapy so it is concerning that she suffers and infarct confirmed on CT scan that is completed and not a tPA candidate while being on anti platelet treatment also. At this current time pt is having some loose stools, she takes probiotic at home and that was restarted along with other medications. Subjective/Events-last exam Left peripheral vision about the same Afraid of falls Therapy was going to work with her today Blood pressure improved INR 2.0 maintain on warfarin 5 mg Maintain on baby aspirin Bowels are moving Overall doing much better Reviewed cardiology note Review of Systems HEENT: Visual Changes Objective Exam Vital Signs Vital Signs Date Time Temp Pulse Resp B/P (MAP) Pulse Ox O2 Delivery O2 Flow Rate FiO2 07/18/18 12:47 90 07/18/18 12:00 97.0 20 123/82 (96) 96 Room Air Capillary Refill : Less Than 3 Seconds General Appearance: No Apparent Distress, WD/WN, Chronically ill HEENT: PERRL/EOMI, TMs Normal, Normal ENT Inspection, Pharynx Normal, Moist Mucous Membranes, Other (left peripheral vision loss noted) Neck: Full Range of Motion, Normal Inspection, Non Tender Respiratory: Chest Non Tender, Lungs Clear, Normal Breath Sounds, No Accessory Muscle Use, No Respiratory Distress Cardiovascular: Regular Rate, Rhythm, No Edema, No Gallop, No JVD, No Murmur, Normal Peripheral Pulses Gastrointestinal: Normal Bowel Sounds, No Organomegaly, No Pulsatile Mass, Non Tender, Soft Back: Normal Inspection, No CVA Tenderness, No Vertebral Tenderness Extremity: Normal Capillary Refill, Normal Inspection, Normal Range of Motion, Non Tender, No Calf Tenderness, No Pedal Edema Neurologic/Psychiatric: Alert, Oriented x3, No Motor/Sensory Deficits, Normal Mood/Affect Skin: Normal Color, Warm/Dry Lymphatic: No Adenopathy Results/Procedures Lab Laboratory Tests 4/27/19 04:40 Patient resulted labs reviewed. 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 acute on chronic Plan: Appreciate Cardiology PT/OT ASA Statin Coumadin Check labs in am Diagnosis/Problems Diagnosis/Problems (1) CVA (cerebral vascular accident) Status: Acute (2) Lupus (systemic lupus erythematosus) Status: Chronic Qualifiers: Systemic lupus erythematosus type: unspecified Systemic lupus erythematosus organ involvement: unspecified Qualified Codes: M32.9 - Systemic lupus erythematosus, unspecified (3) Smoker Status: Chronic (4) Hypertension Status: Chronic Qualifiers: Hypertension type: essential hypertension Qualified Codes: I10 - Essential (primary) hypertension (5) Hyperlipidemia Status: Chronic Qualifiers: Hyperlipidemia type: mixed 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 Qualified Codes: E78.2 - 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 (6) Anticoagulated on Coumadin Status: Chronic (7) Thrombosis, renal vein Clinical Quality Measures DVT/VTE Risk/Contraindication: Risk Factor Score Per Nursin RFS Level Per Nursing on Admit: 4+=Very High SERINA DEL REAL DO Jul 18, 2018 08:28
--- NOTE | 2018-07-18 12:55 | Physical Therapy Daily Note ---
PT Daily Note-Current Subjective Pt agreeable. Pt denies pain. Pt states "I am just wobbly, more than usual. I feel like I need to reach out and hold onto the wall when I walk." Mental Status Patient Orientation: Person, Place, Situation Transfers Therapy Code Descriptions/Definitions Functional [place] Measure: 0=Not Assessed/NA 4=Minimal Assistance 1=Total Assistance 5=Supervision or Setup 2=Maximal Assistance 6=Modified [place] 3=Moderate Assistance 7=Complete [place] Therapy Quality Codes: 6 Independent with activity with or without an assistive device 5 Patient requires set up or clean up by helper. Patient completes activity by themselves 4 Supervision or touching assist (CGA). [place] provide cues , steadying assist 3 The helper provides less than half the effort to complete the activity 2 The helper provides more than half the effort to complete the activity 1 Dependent. The helper does all the effort to complete an activity 7 Patient refused to complete or attempt activity 9 The patient did not perform the activity before the current illness or injury 88 Not attempted due to Medical conditions or safety concerns Pt (I) with transfers, donned shorts and shoes (I). Weight Bearing Right Lower Extremity: Right Full Weight Bearing Left Lower Extremity: Left Full Weight Bearing Gait Training Gait Assistive Device: Cane Small Base Quad Pt amb with QC and CGA 70ft. Treatments Pt allowed to rest following gait training. Ther ex: sit to stand x 10 from standard chair, standing hip abd and march in place x 10 each with hand on chair and QC for support, Seated LAQ and hip flexion x 20 each. Assessment Current Status: Good Progress Pt unsteady at times, (L) LE fatigues quickly during standing ther ex. Pt would benefit from continued balance training and endurance training to improve safety. Pt back in bedside chair with call light and all needs met post therapy. 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
--- NOTE | 2018-07-18 16:30 | Progress Note-Cardiology ---
Cardiology SOAP Progress Note Subjective: No cp or palp or syncope Visual disturbances unchanged Objective: I&O/Vital Signs 07/18/18 07/18/18 07/18/18 07/18/18 07:00 08:00 08:00 12:00 Temp 97.8 97.0 Pulse 90 82 99 Resp 20 20 B/P (MAP) 146/82 (103) 123/82 (96) Pulse Ox 99 96 96 O2 Delivery Room Air Room Air Room Air 07/18/18 12:47 Pulse 90 07/18/18 00:00 Intake Total 840 ml Balance 840 ml Weight (Pounds): 161 Weight (Ounces): 7.0 Weight (Calculated Kilograms): 73.304122 Constitutional: AAO x 3, well-developed, well-nourished Respiratory: No accessory muscle use; chest expansion is symmetric, chest is bilaterally symmetric, other (prolonged expiratory phase) Cardiovascular: regular rate-rhythm; No JVD; S1 and S2 Gastrointestional: No tender; soft, round, audible bowel sounds Extremities: other (RLE visibly larger than left (reports chronic)) Neurologic/Psychiatric: oriented x 3, other (L-sided visual field cut in both eyes) Skin: No rash, No ulcerations Results/Procedures: Labs Laboratory Tests 07/18/18 04:40: White Blood Count 7.1, Red Blood Count 3.96L, Hemoglobin 11.0L, Hematocrit 35, Mean Corpuscular Volume 89, Mean Corpuscular Hemoglobin 28, Mean Corpuscular Hemoglobin Concent 31L, Red Cell Distribution Width 15.8H, Platelet Count 292, Mean Platelet Volume 10.4, Neutrophils (%) (Auto) 68, Lymphocytes (%) (Auto) 19 , Monocytes (%) (Auto) 9, Eosinophils (%) (Auto) 3, Basophils (%) (Auto) 0, Neutrophils # (Auto) 4.9, Lymphocytes # (Auto) 1.4, Monocytes # (Auto) 0.7, Eosinophils # (Auto) 0.2, Basophils # (Auto) 0.0, Prothrombin Time 23.2H, INR Comment 2.0H, Sodium Level 139, Potassium Level 3.9, Chloride Level 107, Carbon Dioxide Level 21, Anion Gap 11, Blood Urea Nitrogen 24H, Creatinine 1.29, Estimat Glomerular Filtration Rate 41, BUN/Creatinine Ratio 19, Glucose Level 86 , Calcium Level 9.0, Corrected Calcium 9.5, Total Bilirubin 0.4, Aspartate Amino Transf (AST/SGOT) 15, Alanine Aminotransferase (ALT/SGPT) 11, Alkaline Phosphatase 70, Total Protein 5.9L, Albumin 3.4 Microbiology 07/15/18 Urine Culture - Final, Complete Escherichia coli Laboratory Tests 07/17/18 05:28 07/18/18 04:40 A/P: Assessment: CVA with L homonymous hemianopsia - small to moderate-sized area of acute/ subacute infarct involving the right occipital lobe. There is no evidence of intra-cranial hemorrhage, brain herniation, or midline shift on CT of the head on 07-15-18. Management of CVA is by Dr Mosquera Carotid artery disease - Per u/s of 07-15-18, there is mod bilat carotid arterial plaque, worse (50-70% stenosis) on the right UTI - management by Dr Mosquera Cardiac cath of July [address] Olvera showed multi-vessel dz - 60-70% mid-LAD involving origin of relatively sm caliber diag branch. 50-60% L Cx. RCA - large and dominant with 50% stenosis mid-vessel and 60% distal. LVEF 60%. Referred to Dr. Patel of cardiothoracic services at [facility] - medical tx advised at that time - has had no f/u Echo of 07/16/18: LVEF 45-50%, mod conc LVH, grade 1 caldwell dysfxn, PASP 25-30 mmHg H/O cervical cancer for which she has undergone chemo (last tx 12 years ago) H/O sleep apnea for which she is non-compliant with CPAP tx HLD - statin tx followed by her PCP H/O sinus bradycardia and V-tach during ED visit in November 2017 - transferred to [facility] at that time Chronic diarrhea Reports chronic lymphedema to right leg Depression Lupus Gout Family h/o CAD (son has had coronary stenting; mother has had CVA) Plan: * INR now therapeutic, continue warfarin. I have advised very close f/u on INR as outpt (with her pcp) and adjustment of dose based on INR. She understands * Outpt card f/u advised DIMITRI OLVERA MD FACP [facility] CCDS Jul 18, 2018 16:30
[2018-07-18] MEDS: warFARin 5 MG (COUMADIN) TAB PO SCH (17:12)
[2018-07-18] MEDS: ATORVASTATIN 20 MG (LIPITOR) TABLET PO SCH (21:54)
[2018-07-19 04:08] VITALS: BP 183/86
[2018-07-19] MEDS: predniSONE 10 MG TAB PO SCH (06:21)
[2018-07-19 06:27] LABS: INR 2.8 (0.8-1.4); PROTHROMBIN TIME PATIENT 30.9 SEC (12.2-14.7)
--- NOTE | 2018-07-19 07:18 | Progress Note-Hospitalist ---
Subjective HPI/CC On Admission Date Seen by Provider: Jul 19, 2018 Time Seen by Provider: 06:30 Chief Complaint: Completed occipital right occipital infarct HPI: This is 73yoWF that presented after a long delay after suffering loss of left peripheral vision. She reports that it did not accompany any type of pain or headache and no other weakness anywhere in her body. She is maintained on Coumadin for an uncertain source or medical condition so we will consult cardiology to evaluate and research that. She was also taking an aspirin at home and a statin therapy so it is concerning that she suffers and infarct confirmed on CT scan that is completed and not a tPA candidate while being on anti platelet treatment also. At this current time pt is having some loose stools, she takes probiotic at home and that was restarted along with other medications. Subjective/Events-last exam Patient doing about the same with her left peripheral vision Multiple falls at home prior to the stroke Denies any pain Walks with a walker Will await for therapy evaluation tomorrow to decide to pursue inpatient rehab or discharge home Reviewed labs and meds Review of Systems HEENT: Visual Changes Neurological: Weakness Objective Exam Vital Signs Vital Signs Date Time Temp Pulse Resp B/P (MAP) Pulse Ox O2 Delivery O2 Flow Rate FiO2 07/19/18 13:00 84 07/19/18 12:00 97.6 18 146/78 (100) 97 Room Air Capillary Refill : Less Than 3 Seconds General Appearance: No Apparent Distress, WD/WN, Chronically ill HEENT: PERRL/EOMI, TMs Normal, Normal ENT Inspection, Pharynx Normal, Moist Mucous Membranes, Other (left peripheral vision loss noted) Neck: Full Range of Motion, Normal Inspection, Non Tender Respiratory: Chest Non Tender, Lungs Clear, Normal Breath Sounds, No Accessory Muscle Use, No Respiratory Distress Cardiovascular: Regular Rate, Rhythm, No Edema, No Gallop, No JVD, No Murmur, Normal Peripheral Pulses Gastrointestinal: Normal Bowel Sounds, No Organomegaly, No Pulsatile Mass, Non Tender, Soft Back: Normal Inspection, No CVA Tenderness, No Vertebral Tenderness Extremity: Normal Capillary Refill, Normal Inspection, Normal Range of Motion, Non Tender, No Calf Tenderness, No Pedal Edema Neurologic/Psychiatric: Alert, Oriented x3, No Motor/Sensory Deficits, Normal Mood/Affect Skin: Normal Color, Warm/Dry Lymphatic: No Adenopathy Results/Procedures Lab Patient resulted labs reviewed. 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 acute on chronic Plan: Appreciate Cardiology PT/OT ASA Statin Coumadin Check labs in am Diagnosis/Problems Diagnosis/Problems (1) CVA (cerebral vascular accident) Status: Acute (2) Lupus (systemic lupus erythematosus) Status: Chronic Qualifiers: Systemic lupus erythematosus type: unspecified Systemic lupus erythematosus organ involvement: unspecified Qualified Codes: M32.9 - Systemic lupus erythematosus, unspecified (3) Smoker Status: Chronic (4) Hypertension Status: Chronic Qualifiers: Hypertension type: essential hypertension Qualified Codes: I10 - Essential (primary) hypertension (5) Hyperlipidemia Status: Chronic Qualifiers: Hyperlipidemia type: mixed 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 Qualified Codes: E78.2 - 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 (6) Anticoagulated on Coumadin Status: Chronic (7) Thrombosis, renal vein Status: Chronic Clinical Quality Measures DVT/VTE Risk/Contraindication: Risk Factor Score Per Nursin RFS Level Per Nursing on Admit: 4+=Very High SERINA DEL REAL DO Jul 19, 2018 07:18
[2018-07-19 08:00] VITALS: BP 156/86
[2018-07-19] MEDS: DIPHENOXYLATE/ATROPINE 2.5MG/0.025MG (LOMOTIL) TAB PO PRN ×2 (08:51→15:05)
[2018-07-19] MEDS: ASPIRIN 81 MG CHEW (CHILDREN'S ASA) PO SCH (08:51)
[2018-07-19] MEDS: GABAPENTIN 100 MG (NEURONTIN) CAP PO SCH ×3 (08:51→21:04)
[2018-07-19] MEDS: HYDROXYCHLOROQUINE 200 MG (PLAQUENIL) TAB PO SCH (08:51)
[2018-07-19] MEDS: ALLOPURINOL 100 MG (ZYLOPRIM) TAB PO SCH (08:51)
[2018-07-19] MEDS: FLUoxetine HCL 20 MG (PROzac) CAP PO SCH (08:51)
[2018-07-19 12:00] VITALS: BP 146/78
--- NOTE | 2018-07-19 14:20 | Progress Note-Cardiology ---
Cardiology SOAP Progress Note Subjective: No cp or palp or syncope or shortness of breath Objective: I&O/Vital Signs 07/19/18 07/19/18 07/19/18 07/19/18 04:08 08:00 08:00 08:33 Temp 97.7 97.3 Pulse 98 82 66 Resp 18 18 B/P (MAP) 183/86 (118) 156/86 (109) Pulse Ox 97 96 96 O2 Delivery Room Air Room Air Room Air 07/19/18 12:00 Temp 97.6 Pulse 98 Resp 18 B/P (MAP) 146/78 (100) Pulse Ox 97 O2 Delivery Room Air 07/19/18 00:00 Intake Total 1890 ml Output Total 100 ml Balance 1790 ml Weight (Pounds): 161 Weight (Ounces): 7.0 Weight (Calculated Kilograms): 73.402551 Constitutional: AAO x 3, well-developed, well-nourished Respiratory: No accessory muscle use; chest expansion is symmetric, chest is bilaterally symmetric, other (prolonged expiratory phase) Cardiovascular: regular rate-rhythm; No JVD; S1 and S2 Gastrointestional: No tender; soft, round, audible bowel sounds Extremities: other (RLE visibly larger than left (reports chronic)) Neurologic/Psychiatric: oriented x 3, other (L-sided visual field cut in both eyes) Skin: No rash, No ulcerations Results/Procedures: Labs Laboratory Tests 07/19/18 05:52: Prothrombin Time 30.9H, INR Comment 2.8H Microbiology 07/15/18 Urine Culture - Final, Complete Escherichia coli A/P: Assessment: CVA with L homonymous hemianopsia - small to moderate-sized area of acute/ subacute infarct involving the right occipital lobe. There is no evidence of intra-cranial hemorrhage, brain herniation, or midline shift on CT of the head on 07-15-18. Management of CVA is by Dr Mosquera Carotid artery disease - Per u/s of 07-15-18, there is mod bilat carotid arterial plaque, worse (50-70% stenosis) on the right UTI - management by Dr Mosquera Cardiac cath of July [address] Olvera showed multi-vessel dz - 60-70% mid-LAD involving origin of relatively sm caliber diag branch. 50-60% L Cx. RCA - large and dominant with 50% stenosis mid-vessel and 60% distal. LVEF 60%. Referred to Dr. Patel of cardiothoracic services at [facility] - medical tx advised at that time - has had no f/u Echo of 07/16/18: LVEF 45-50%, mod conc LVH, grade 1 caldwell dysfxn, PASP 25-30 mmHg H/O cervical cancer for which she has undergone chemo (last tx 12 years ago) H/O sleep apnea for which she is non-compliant with CPAP tx HLD - statin tx followed by her PCP H/O sinus bradycardia and V-tach during ED visit in November 2017 - transferred to [facility] at that time Chronic diarrhea Reports chronic lymphedema to right leg Depression Lupus Gout Family h/o CAD (son has had coronary stenting; mother has had CVA) Plan: * INR now therapeutic, continue warfarin. I have advised very close f/u on INR as outpt (with her pcp) and adjustment of dose based on INR. She understands * Outpt card f/u advised DIMITRI OLVERA MD FACP [facility] CCDS Jul 19, 2018 14:20
[2018-07-19 15:51] VITALS: BP 152/76
[2018-07-19] MEDS: warFARin 5 MG (COUMADIN) TAB PO SCH (17:25)
[2018-07-19 19:46] VITALS: BP 142/86
[2018-07-19] MEDS: ATORVASTATIN 20 MG (LIPITOR) TABLET PO SCH (21:05)
[2018-07-19 23:51] VITALS: BP 177/83
[2018-07-20] MEDS: HYDROcodone/APAP 5 MG/325 MG (LORTAB) TAB PO PRN ×2 (00:09→08:14)
[2018-07-20] MEDS: ONDANSETRON 4 MG (ZOFRAN) ORAL DISSOLVE TAB PO PRN (03:19)
[2018-07-20 04:32] VITALS: BP 160/82
[2018-07-20] MEDS: predniSONE 10 MG TAB PO SCH (05:28)
[2018-07-20 07:10] LABS: INR 3.6 (0.8-1.4); PROTHROMBIN TIME PATIENT 37.2 SEC (12.2-14.7)
[2018-07-20 08:00] VITALS: BP 188/84
[2018-07-20] MEDS: ALLOPURINOL 100 MG (ZYLOPRIM) TAB PO SCH (08:13)
[2018-07-20] MEDS: ASPIRIN 81 MG CHEW (CHILDREN'S ASA) PO SCH (08:13)
[2018-07-20] MEDS: HYDROXYCHLOROQUINE 200 MG (PLAQUENIL) TAB PO SCH (08:13)
[2018-07-20] MEDS: FLUoxetine HCL 20 MG (PROzac) CAP PO SCH (08:13)
[2018-07-20] MEDS: GABAPENTIN 100 MG (NEURONTIN) CAP PO SCH ×3 (08:13→21:00)
--- NOTE | 2018-07-20 09:12 | NUR ---
HYDROCODONE PULLED BY THIS RN , BUT GIVEN BY MOOSE ALLEN.
--- NOTE | 2018-07-20 09:21 | Progress Note-Cardiology ---
Cardiology SOAP Progress Note Subjective: Sitting up in bed eating morning meal. States she feels well this morning. She reports she is regaining some left peripheral vision, but what she sees is "wavy" and not clear. No c/o CP, palpitations, syncope or near syncope. Chronic poor balance for which she uses a cane. Objective: I&O/Vital Signs 07/19/18 07/20/18 07/20/18 07/20/18 23:51 01:00 04:32 07:00 Temp 98.3 97.4 Pulse 70 73 88 74 Resp 18 17 B/P (MAP) 177/83 (114) 160/82 (108) Pulse Ox 96 96 O2 Delivery Room Air Room Air 07/20/18 08:00 Temp 97.6 Pulse 82 Resp 18 B/P (MAP) 188/84 (118) Pulse Ox 96 O2 Delivery Room Air 07/20/18 00:00 Intake Total 1720 ml Balance 1720 ml Weight (Pounds): 161 Weight (Ounces): 7.0 Weight (Calculated Kilograms): 73.699620 Constitutional: AAO x 3, well-developed, well-nourished Respiratory: No accessory muscle use; chest expansion is symmetric, chest is bilaterally symmetric, other (prolonged expiratory phase) Cardiovascular: regular rate-rhythm; No JVD; S1 and S2 Gastrointestional: No tender; soft, round, audible bowel sounds Extremities: other (RLE visibly larger than left (reports chronic)) Neurologic/Psychiatric: oriented x 3, other (L-sided visual field cut in both eyes) Skin: No rash, No ulcerations Results/Procedures: Labs Laboratory Tests 07/20/18 06:23: Prothrombin Time 37.2H, INR Comment 3.6H Microbiology 07/15/18 Urine Culture - Final, Complete Escherichia coli A/P: Assessment: CVA with L homonymous hemianopsia - small to moderate-sized area of acute/ subacute infarct involving the right occipital lobe. There is no evidence of intra-cranial hemorrhage, brain herniation, or midline shift on CT of the head on 07-15-18. Management of CVA is by Dr Mosquera Carotid artery disease - Per u/s of 07-15-18, there is mod bilat carotid arterial plaque, worse (50-70% stenosis) on the right UTI - management by Dr Mosquera Cardiac cath of July [address] Olvera showed multi-vessel dz - 60-70% mid-LAD involving origin of relatively sm caliber diag branch. 50-60% L Cx. RCA - large and dominant with 50% stenosis mid-vessel and 60% distal. LVEF 60%. Referred to Dr. Patel of cardiothoracic services at [facility] - medical tx advised at that time - has had no f/u Echo of 07/16/18: LVEF 45-50%, mod conc LVH, grade 1 caldwell dysfxn, PASP 25-30 mmHg H/O cervical cancer for which she has undergone chemo (last tx 12 years ago) H/O sleep apnea for which she is non-compliant with CPAP tx HLD - statin tx followed by her PCP H/O sinus bradycardia and V-tach during ED visit in November 2017 - transferred to [facility] at that time Chronic diarrhea Reports chronic lymphedema to right leg Depression Lupus Gout Family h/o CAD (son has had coronary stenting; mother has had CVA) Plan: * Supra-therapeutic INR - hold warfarin today. We have advised very close f/u on INR as outpt (with her pcp) and adjustment of dose based on INR. She understands * Outpt card f/u advised * Possible discharge to IRF or home with out pt tx soon per medical services TATY ENGLE Jul 20, 2018 09:21
--- NOTE | 2018-07-20 09:49 | Physical Therapy Daily Note ---
PT Daily Note-Current Subjective Patient in bed pre tx, agrees to PT, has no complaints of pain at rest. Patient needs to put pants on and she does that with independence. Patient states that her vision seems to be a little better. Appearance Patient in recliner post tx with nurse call, phone, tray, all needs met. Mental Status Patient Orientation: Person, Place, Situation Transfers Therapy Code Descriptions/Definitions Functional [place] Measure: 0=Not Assessed/NA 4=Minimal Assistance 1=Total Assistance 5=Supervision or Setup 2=Maximal Assistance 6=Modified [place] 3=Moderate Assistance 7=Complete [place] Therapy Quality Codes: 6 Independent with activity with or without an assistive device 5 Patient requires set up or clean up by helper. Patient completes activity by themselves 4 Supervision or touching assist (CGA). [place] provide cues , steadying assist 3 The helper provides less than half the effort to complete the activity 2 The helper provides more than half the effort to complete the activity 1 Dependent. The helper does all the effort to complete an activity 7 Patient refused to complete or attempt activity 9 The patient did not perform the activity before the current illness or injury 88 Not attempted due to Medical conditions or safety concerns Transfers (B, C, W/C) (FIM): 4 Scootin Rollin Supine to/from Sit: 6 Sit to/from Stand: 4 Bed to/from Chair: 4 CGA for sit to stand and transfers. No LOB or unsteadiness with transfers. Weight Bearing Right Lower Extremity: Right Full Weight Bearing Left Lower Extremity: Left Full Weight Bearing Gait Training Gait (FIM): 4 Distance: 150' Gait Level of Assist: 4 Gait Persons Needed: 1 Gait Assistive Device: Cane Small Base Quad Patient ambulated 150' with a quad cane with min assist. She ambulates slowly, unsteady, has a deviated path. She does not want to use our walker, wants to continue to use a quad cane. She says she has a 4 wheeled walker she can use at home. During ambulation patient had one significant instance of unsteadiness and needed to hold onto therapist hand with hers to steady herself before continuing. Exercises Seated Therapy Exercises: Ankle pumps, Long arc quads, Hip flexion Seated Reps: 20 Treatments transfers, ambulation, LE exercises Assessment Current Status: Fair Progress improved ambulation. 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 Gear Goals Time Frame: Jul 20, 2018 Transfers (B,C,W/C) (FIM): 7 Gait (FIM): 6 PT Plan Problem List Problem List: Activity Tolerance, Functional Strength, Safety, Balance, Gait, Transfer Treatment/Plan Treatment Plan: Continue Plan of Care Treatment Plan: Functional Activity Ghada, Functional Strength, Gait, Safety, Therapeutic Exercise, Transfers Treatment Duration: Jul 20, 2018 Frequency: 6 times per week Estimated Hrs Per Day: .25 hour per day Patient and/or Family Agrees t: Yes Safety Risks/Education Patient Education: Gait Training, Transfer Techniques, Correct Positioning, Safety Issues Teaching Recipient: Patient Teaching Methods: Demonstration, Discussion Response to Teaching: Reinforcement Needed Time/GCodes Time In: 930 Time Out: 944 Total Billed Treatment Time: 14 Total Billed Treatment 1 visit FA ROSALES VEGA PT Jul 20, 2018 09:49
[2018-07-20] MEDS ORDERED: amLODIPine 5 MG (NORVASC) TAB PO NR (10:00)
[2018-07-20 11:55] VITALS: BP 145/80
--- NOTE | 2018-07-20 14:08 | Occupational Ther Daily Note ---
OT Current Status-Daily Note Subjective pt laying supine in bed upon OT arrival in no appearnt distress. pt agreed to OT TX Session with focus on increasing independence with ADLs/ functional transfers Pain Numeric Pain Scale: 0-No Pain Mental Status/Objective Patient Orientation: Normal For Age Therapy Code Descriptions/Definitions Functional Wallace Measure: 0=Not Assessed/NA 4=Minimal Assistance 1=Total Assistance 5=Supervision or Setup 2=Maximal Assistance 6=Modified Wallace 3=Moderate Assistance 7=Complete Wallace ADL-Treatment Eating (FIM): 6 Grooming (FIM): 5 (standing at sink) Upper Body (FIM): 5 (sitting EOB) Lower Body Dressing (FIM): 4 (intermitted CGA while standing to pull up/ down pants) Toileting (FIM): 5 Transfers (B, C, W/C) (FIM): 4 (CGA for safety/ balance) Toilet/Commode Transfer (FIM): 4 pt demo ability to perform ADLS with intermitted CGA fro safety/ balance when standing/ performing functional mobility. pt education on energy conservation techniques while performing ADLS. pt demo understanding. pt use of SPC for functional transfers Education OT Patient Education: Energy conservation, Modified ADL techniques, Progress toward Goal/Update tx plan, Safety issues, Transfer techniques, Use of adapted equipment Teaching Recipient: Patient Teaching Methods: Demonstration, Discussion Response to Teaching: Verbalize Understanding, Return Demonstration OT Short Term Goals Short Term Goals Bathing(FIM): 5 1=Demonstrate adherence to instructed precautions during ADL tasks. 2=Patient will verbalize/demonstrate understanding of assistive devices/ modifications for ADL. 3=Patient will improve strength/tolerance for activity to enable patient to perform ADL's. OT Shelter Goals Farm General Manager Goals Bathing(FIM): 6 Lower Body Dressing(FIM): 6 Toileting(FIM): 6 Transfers (B,C,W/C) (FIM): 6 Toilet/Commode Transfer(FIM): 6 Tub Transfer(FIM): 6 1=Demonstrate adherence to instructed precautions during ADL tasks. 2=Patient will verbalize/demonstrate understanding of assistive devices/ modifications for ADL. 3=Patient will improve strength/tolerance for activity to enable patient to perform ADL's. OT Education/Plan Problem List/Assessment pt continues to presents with functional limitations affecting areas of ADL and functional transfers with deficits in vision and right UE strength. vision test performed. noted left eye has 10% visional field cut on left side. pt does require CGA when performing functional mobility secondary to unsteadiness. pt would benefit from OT services to increase independence with ADLS and functional transfers . Discharge Recommendations Plan/Recommendations: Continue POC Treatment Plan/Plan of Care Treatment,Training & Education: Yes Patient would benefit from OT for education, treatment and training to promote independence in ADL's, mobility, safety and/or upper extremity function for ADL' s. Plan of Care: ADL Retraining, Functional Mobility, UE Funct Exercise/Act, Visual/Perceptual Retrain Treatment Duration: July 23, 2018 Frequency: 5 times per week Estimated Hrs Per Day: .25 hour per day Agreement: Yes Rehab Potential: Good Time/GCodes Start Time: 13:35 Stop Time: 14:00 Billed Treatment Time ADL 25 minutes, 2 units DOMINGO HALL OT Jul 20, 2018 14:08
--- NOTE | 2018-07-20 14:20 | NUR ---
Pastoral care visit, pt asleep, prayer offered by bed.
--- NOTE | 2018-07-20 14:43 | Progress Note (SOAP) ---
Subjective Subjective/Events-last exam Feeling fairly well, recognizes she is not stable enough on her feet to go home without some further rehab, but not yet sure if inpatient will be covered. She reports her vision is improving still and denies other concerns. Review of Systems Date Seen by Provider: Jul 20, 2018 Time Seen by Provider: 10:45 Objective Exam Last Set of Vital Signs Vital Signs Date Time Temp Pulse Resp B/P (MAP) Pulse Ox O2 Delivery O2 Flow Rate FiO2 07/20/18 12:50 103 07/20/18 11:55 98.4 18 145/80 (101) 97 Room Air Capillary Refill : Less Than 3 SecondsLess Than 3 Seconds I&O Intake and Output 07/20/18 00:00 Intake Total 1770 ml Balance 1770 ml Intake Oral 1770 ml # Voids 8 # Bowel Movements 5 General: Alert, No Acute Distress HEENT: EOMI Lungs: Clear to Auscultation, Normal Air Movement Heart: Regular Rate, No Murmurs Neuro: Other (arms 5/5 strength, legs 4/5 at hip flexion) Psych/Mental Status: Mental Status NL Results/Procedures Lab Laboratory Tests 07/20/18 06:23: Prothrombin Time 37.2H, INR Comment 3.6H Microbiology 07/15/18 Urine Culture - Final, Complete Escherichia coli Radiology NAME: EUGENIO PARKER [facility] REC#: [id number] PT STATUS: ADM IN : 1945 PHYSICIAN: SERINA DEL REAL DO ADMIT DATE: 07/15/18/ Signed Date of Exam: 07/15/18 US CAROTID LISA COMPLETE [id number] INDICATION: Stroke symptoms. Carotid Doppler study performed in the routine fashion with color-flow Doppler and waveform analysis. There is some calcified plaquing visualized in the carotid bifurcation on both sides. On the right side, the ICA/CCA systolic velocity ratio is 2.3, suggesting stenosis between 50 and 70%. On the left side, ICA/CCA systolic velocity ratio is 1.14, suggesting no significant stenosis. The right vertebral artery is patent with antegrade flow. Left vertebral artery is not visualized. Parameters based on the consensus panel Haley-Scale and Doppler ultrasound criteria published January 2003, Radiology, Volume 229. DOPPLER (peak systolic velocity M/S Right Left CCA 0.59 0.61 ICA Proximal 1.3 0.64 ICA Mid 1.4 0.70 ICA Distal 1.2 0.66 RATIO 2.3 1.14 ECA 1.4 1.5 VERT 0.33 NOT SEEN IMPRESSION: Plaquing is visualized in the carotid bifurcation on both sides, right worse than left. On the right side, the ratio suggests a stenosis between 50 and 70%. On the left side, there is no significant stenosis. Right vertebral artery is patent. Left vertebral artery is not visualized. Dictated by: Dictated on workstation # [id number] Dict: 07/15/181810 Trans: 07/15/181899 Interpreted by: KALEB CORMIER MD Electronically signed by: KALEB CORMIER MD 07/15/181899 NAME: EUGENIO PARKER [facility] REC#: [id number] PT STATUS: ADM IN : 1945 PHYSICIAN: KB SCHUMACHER MD ADMIT DATE: 07/15/18 Signed Date of Exam: 07/15/18 CT HEAD WO Clinical indication: Cannot see out of the left eye. Patient's headache, nausea, and dizziness since last night. Exam: Axial CT scan of the brain performed without IV contrast. Comparison: None. Findings: There is a small to moderate-sized area of transcortical and white matter low density involving the right occipital lobe concerning for acute/subacute infarct. There is no other areas concerning for acute cerebral infarct. There are subtle focal areas of low-attenuation white matter changes involving both cerebral hemispheres, likely representing chronic small vessel ischemic disease. There is no intracranial hemorrhage, brain herniation, or midline shift. There is no hydrocephalus. Basal cisterns are unremarkable. The brain parenchymal volume appears appropriate for patient's age. The extra cranial soft tissue, skull, and orbits are unremarkable. Paranasal sinuses and temporal bone structures are unremarkable. Impression: 1: There is a small to moderate-sized area of acute/subacute infarct involving the right occipital lobe. There is no evidence of intra-cranial hemorrhage, brain herniation, or midline shift. 2. The remainder of the brain parenchyma is unremarkable for patient's age. Results of this report discussed with Dr. Kb Schumacher via the telephone on 07/15/2018 at 1045 hrs. Dictated by: Dictated on workstation # [id number] Dict: 07/15/18 1042 Trans: 07/15/181723 Interpreted by: CATERINA COKER MD Electronically signed by: CATERINA COKER MD 07/15/181723 NAME: EUGENIO PARKER [facility] REC#: [id number] PT STATUS: ADM IN : 1945 PHYSICIAN: KB SCHUMACHER MD ADMIT DATE: 07/15/18 Signed Date of Exam: 07/15/18 CT ANGIO HEAD/NECK PROCEDURE: CT angiography of the head and CT angiography of the neck with and without contrast. TECHNIQUE: Contiguous noncontrast images were obtained from the skull base through the vertex. After intravenous contrast administration, helical CT angiography of the neck was performed. Source data was reformatted into multiple MIP projections. Delayed post contrast acquisition was also obtained. Auto Exposure Controls were utilized during the CT exam to meet ALARA standards for radiation dose reduction. INDICATION: Head pain, dizziness, nausea, left-sided vision loss. FINDINGS: CT ANGIO NECK: There is a large amount of irregular soft plaque adherent predominantly to the anterior wall of the aortic arch. The visualized aorta is nonaneurysmal. The branching pattern of the great vessels is unremarkable. We note a greater degree of contrast opacification of the venous structures than the arterial structures which substantially limits sensitivity for detecting stenoses and luminal irregularities. The cervical vertebral arteries are grossly unremarkable and appear codominant. There are mixed soft and hard plaques substantially involving both carotid bulbs and bifurcations as well as extending into the proximal ICAs bilaterally. On the right, this results in about 70% proximal ICA stenosis and on the left about 50%. The cervical internal carotids beyond that level are tortuous but patent. CT ANGIO HEAD: The intrathecal vertebral arteries are unremarkable. The basilar is patent. The right-sided P1 segment is normal. The P2 segment is small and somewhat irregular. The right [employer] SAL[employer] SYSTEM[employer] ENGINEER at its P3 segment is small and difficult to visualize but can be identified. No identifiable convincing enhancement of the right-sided P4 segmental branches; however, this may be on a technical basis owing to suboptimal arterial opacification. The left-sided posterior cerebral arterial segments are grossly unremarkable; however, its P4 branch opacification is limited. There are heavy calcified plaques involving the cavernous segments of the intracranial carotids without convincing hemodynamically significant stenosis. The terminal segments of the carotids are patent. The A1 segments are patent bilaterally with opacification of the bilateral anterior cerebral arteries confirmed. The bilateral middle cerebral arterial segments and primary branches appear opacified. Note is made of multiple intraparotid masses on the right. The largest in the superficial pole measures 2.1 x 1.3 cm with the next largest in the deep lobe measuring a diameter of 1.6 cm. These are very well-defined and relatively homogenous in their enhancement, suggestive of benign Warthin tumors. IMPRESSION: 1. Limited arterial opacification and excessive venous contamination limit the exam sensitivity. 2. Right greater than left carotid bifurcation plaque with 70% right and 50% left proximal ICA stenoses with the cervical vertebrals codominant and patent. 3. Small irregular right posterior cerebral artery at its P2 and P3 segments with nonvisualization of P4 segmental luminal opacification and its patency not confirmed; however, the contralateral left P4 segment also is very poorly opacified on a technical basis. We note the earlier performed CT head showed recent ischemic changes to the right [employer] SAL[employer] SYSTEMS ENGINEER distribution. 4. Intracranial carotid plaques without stenosis. The anterior circulation appears grossly unremarkable. 5. Intraparotid masses are very well-defined, solid, and enhancing in the right parotid lobes, suggestive of multifocal Warthin tumors. Dictated by: Dictated on workstation # [id number] Dict: 07/15/18 1336 Trans: 07/15/18 172 Interpreted by: KARINA CONWAY Electronically signed by: KARINA CONWAY 07/15/18 1727 Assessment/Plan Assessment/Plan (1) CVA (cerebral vascular accident) Status: Acute Assessment & Plan: Right occipital lobe with left vision loss. Echo with EF 45- 50 and grade 1 diastolic dysfunction 07/16. Carotid US with right side 50-70% stenosis, left no significant stenosis. 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 Chronic debility, unsteady gait, rehab eval in process. (2) UTI (urinary tract infection) Status: Acute Assessment & Plan: Received ceftriaxone initially, asymptomatic. Will treat with macrobid. (3) Lupus (systemic lupus erythematosus) Status: Chronic Assessment & Plan: On plaquenil and prednisone. Qualifiers: Qualified Codes: M32.9 - Systemic lupus erythematosus, unspecified (4) Anticoagulated on Coumadin Status: Chronic Assessment & Plan: On hold due to high INR. (5) DVT prophylaxis Assessment & Plan: On warfarin chronically, INR above goal currently. Clinical Quality Measures DVT/VTE Risk/Contraindication: Risk Factor Score Per Nursin RFS Level Per Nursing on Admit: 4+=Very High HERNAN CRUZ MD Jul 20, 2018 14:43
[2018-07-20 15:48] VITALS: BP 158/82
[2018-07-20] MEDS: NITROFURANTOIN 100 MG (MACROBID) CAPSULE PO SCH (16:57)
[2018-07-20 19:45] VITALS: BP 168/77
[2018-07-20] MEDS: ATORVASTATIN 20 MG (LIPITOR) TABLET PO SCH (21:00)
[2018-07-20 23:39] VITALS: BP 178/79
[2018-07-21 04:21] VITALS: BP 140/84
[2018-07-21] MEDS: NITROFURANTOIN 100 MG (MACROBID) CAPSULE PO SCH (06:02)
[2018-07-21] MEDS: predniSONE 10 MG TAB PO SCH (06:02)
[2018-07-21 06:28] LABS: INR 3.7 (0.8-1.4)
[2018-07-21 08:00] VITALS: BP 144/76
[2018-07-21] MEDS ORDERED: amLODIPine 5 MG (NORVASC) TAB PO SCH (09:00)
[2018-07-21] MEDS: GABAPENTIN 100 MG (NEURONTIN) CAP PO SCH (09:00)
[2018-07-21] MEDS: FLUoxetine HCL 20 MG (PROzac) CAP PO SCH (09:01)
[2018-07-21] MEDS: HYDROXYCHLOROQUINE 200 MG (PLAQUENIL) TAB PO SCH (09:01)
[2018-07-21] MEDS: ASPIRIN 81 MG CHEW (CHILDREN'S ASA) PO SCH (09:01)
[2018-07-21] MEDS: ALLOPURINOL 100 MG (ZYLOPRIM) TAB PO SCH (09:01)
[2018-07-21] MEDS: HYDROcodone/APAP 5 MG/325 MG (LORTAB) TAB PO PRN (09:04)
[2018-07-21 09:23] LABS: BASOPHILS % (AUTO) 0 % (0-10); EOSINOPHILS # (AUTO) 0.1 10^3/uL (0.0-0.3); EOSINOPHILS % (AUTO) 1 % (0-10); HEMATOCRIT 37 % (35-52); HEMOGLOBIN 11.5 G/DL (11.5-16.0); LYMPHOCYTES # (AUTO) 0.9 X 10^3 (1.0-4.0); LYMPHOCYTES % (AUTO) 9 % (12-44); MEAN CORPUSCULAR HEMOGLOBIN 28 PG (25-34); MEAN CORPUSCULAR HGB CONC 31 G/DL (32-36); MEAN CORPUSCULAR VOLUME 89 FL (80-99); MEAN PLATELET VOLUME 10.3 FL (7.4-10.4); MONOCYTES # (AUTO) 0.4 X 10^3 (0.0-1.0); MONOCYTES % (AUTO) 4 % (0-12); NEUTROPHILS # (AUTO) 8.6 X 10^3 (1.8-7.8); NEUTROPHILS % (AUTO) 86 % (42-75); PLATELET COUNT 324 10^3/uL (130-400); WHITE BLOOD COUNT 10.1 10^3/uL (4.3-11.0)
--- NOTE | 2018-07-21 09:29 | NUR ---
prior to a.m. medications pulse was 77 bpm b/p 144/76.
[2018-07-21 09:48] LABS: ALBUMIN 3.7 GM/DL (3.2-4.5); BILIRUBIN,TOTAL 0.4 MG/DL (0.1-1.0); CALCIUM 9.4 MG/DL (8.5-10.1); CREATININE SERUM 1.37 MG/DL (0.60-1.30); TOTAL PROTEIN 6.4 GM/DL (6.4-8.2)
--- NOTE | 2018-07-21 10:18 | Discharge Summary-Hospitalist ---
Diagnosis/Chief Complaint Date of Admission Jul 15, 2018 at 14:10 Date of Discharge Discharge Date: Jul 21, 2018 Admission Diagnosis Assessment: CVA right occipital with left peripheral vision loss Smoker Coumadin treatment HTN SLE Renal vein thrombosis 12/09 Plan: Appreciate Cardiology PT/OT ASA Statin Coumadin Discharge Diagnosis (1) CVA (cerebral vascular accident) Status: Acute (2) Lupus (systemic lupus erythematosus) Status: Chronic (3) Smoker Status: Chronic (4) Hypertension Status: Chronic (5) Hyperlipidemia Status: Chronic (6) Anticoagulated on Coumadin Status: Chronic (7) Thrombosis, renal vein Status: Chronic Discharge Summary Discharge Physical Exam Allergies: Coded Allergies: No Known Drug Allergies (Verified , 10/21/08) Vitals & I&Os Vital Signs Date Time Temp Pulse Resp B/P (MAP) Pulse Ox O2 Delivery O2 Flow Rate FiO2 07/21/18 08:30 Room Air 07/21/18 08:00 98.6 77 18 144/76 (98) 96 General Appearance: No Apparent Distress, WD/WN, Chronically ill Respiratory: Chest Non Tender, Lungs Clear, Normal Breath Sounds, No Accessory Muscle Use, No Respiratory Distress Cardiovascular: Regular Rate, Rhythm, No Edema, No Gallop, No JVD, No Murmur, Normal Peripheral Pulses Neurologic/Psychiatric: Alert, Oriented x3, No Motor/Sensory Deficits, Normal Mood/Affect Hospital Course Was the Problem List Reviewed?: Yes Chief compliant: Stroke HPI: This is a 73yoWF that I have taken care of for the past week for [facility] who presented with a completed stroke with a right occipital infarct that was noted and confirmed on CT scan, did not even require an MRI and suffered a significant amount of left peripheral vision loss who presented to inpatient rehab in need of intensive therapy for fall prevention and to work on balance and compensatory mechanisms to make up for the loss of vision on the left peripherally. Barriers to returning home will be safely ambulating with assistive devices along with family support in addition we will work on Coumadin therapy since she has been subtherapeutic and super therapeutic on labs with 3.7 INR today in addition noted a creatinine bump at 1.37 so will need close follow up in inpatient rehab for blood pressure management, Coumadin level evaluation, and monitoring blood pressure management along with cardiology care. Her prior level of functioning was independent without a walker but she did suffer falls at home even prior to the stroke. 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 Labs (last 24 hrs) Laboratory Tests 07/21/18 06:10: Prothrombin Time 38.0H, INR Comment 3.7H 07/21/18 09:16: White Blood Count 10.1, Red Blood Count 4.10L, Hemoglobin 11.5, Hematocrit 37, Mean Corpuscular Volume 89, Mean Corpuscular Hemoglobin 28, Mean Corpuscular Hemoglobin Concent 31L, Red Cell Distribution Width 16.0H, Platelet Count 324, Mean Platelet Volume 10.3, Neutrophils (%) (Auto) 86H, Lymphocytes (%) (Auto) 9L , Monocytes (%) (Auto) 4, Eosinophils (%) (Auto) 1, Basophils (%) (Auto) 0, Neutrophils # (Auto) 8.6H, Lymphocytes # (Auto) 0.9L, Monocytes # (Auto) 0.4, Eosinophils # (Auto) 0.1, Basophils # (Auto) 0.0, Sodium Level 142, Potassium Level 4.0, Chloride Level 107, Carbon Dioxide Level 23, Anion Gap 12, Blood Urea Nitrogen 24H, Creatinine 1.37H, Estimat Glomerular Filtration Rate 38, BUN/ Creatinine Ratio 18, Glucose Level 110H, Calcium Level 9.4, Corrected Calcium 9.6, Total Bilirubin 0.4, Aspartate Amino Transf (AST/SGOT) 18, Alanine Aminotransferase (ALT/SGPT) 14, Alkaline Phosphatase 72, Total Protein 6.4, Albumin 3.7 Microbiology 07/15/18 Urine Culture - Final, Complete Escherichia coli Patient resulted labs reviewed. Pending Labs Discussion & Recommendations Discharge Planning: <30 minutes discharge planning Discharge Home Medications: Active Scripts Active Reported Atorvastatin Calcium 20 Mg Tablet 20 Mg PO HS LAST FILLED #30 01-30-18 Warfarin Sodium 5 Mg Tablet 5 Mg PO 1800 Prozac (Fluoxetine HCl) 40 Mg Capsule 40 Mg PO DAILY Hydrocodone-Acetamin 5-325 mg (Hydrocodone/Acetaminophen) 1 Each Tablet 1 Tab PO TID PRN Ondansetron HCl 4 Mg Tablet 4 Mg PO Q6H PRN Diphenoxylate-Atrop 2.5-0.025 (Diphenoxylate HCl/Atropine) 1 Each Tablet 1 Tab PO Q6H PRN Hydroxychloroquine Sulfate 200 Mg Tablet 400 Mg PO DAILY TAKES 2 (200MG) TABLETS Allopurinol 100 Mg Tablet 100 Mg PO DAILY Gabapentin 100 Mg Capsule 100 Mg PO TID Prednisone 10 Mg Tab 10 Mg PO DAILY Instructions to patient/family Please see electronic discharge instructions given to patient. Clinical Quality Measures DVT/VTE Risk/Contraindication: Risk Factor Score Per Nursin RFS Level Per Nursing on Admit: 4+=Very High Problem Qualifiers (1) CVA (cerebral vascular accident): CVA mechanism: unspecified Qualified Codes: I63.9 - Cerebral infarction, unspecified (2) Lupus (systemic lupus erythematosus): Systemic lupus erythematosus type: unspecified Systemic lupus erythematosus organ involvement: unspecified Qualified Codes: M32.9 - Systemic lupus erythematosus, unspecified (3) Hypertension: Hypertension type: essential hypertension Qualified Codes: I10 - Essential ( primary) hypertension (4) Hyperlipidemia: Hyperlipidemia type: mixed 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 Qualified Codes: E78.2 - 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 SERINA DEL REAL DO Jul 21, 2018 10:18
== END 2018-07-21 10:45 | DRG 65 ==
LOC: EDUNIT# 10:01 → ER 10:02 → 4TH 14:10
PROVIDERS: ADMIT Internal Medicine; ATTEND Family Medicine
DX: I63.9 Cerebral infarction, unspecified (principal); H54.62 Unqualified visual loss, left eye, normal vision right eye; I65.23 Occlusion and stenosis of bilateral carotid arteries; N39.0 Urinary tract infection, site not specified; H53.462 Homonymous bilateral field defects, left side; I34.0 Nonrheumatic mitral (valve) insufficiency; I25.10 Atherosclerotic heart disease of native coronary artery without angina pectoris; E78.00 Pure hypercholesterolemia, unspecified; I10 Essential (primary) hypertension; M19.91 Primary osteoarthritis, unspecified site; F17.210 Nicotine dependence, cigarettes, uncomplicated; F41.9 Anxiety disorder, unspecified; F32.9 Major depressive disorder, single episode, unspecified; Z85.41 Personal history of malignant neoplasm of cervix uteri; Z85.44 Personal history of malignant neoplasm of other female genital organs; Z92.21 Personal history of antineoplastic chemotherapy; G47.30 Sleep apnea, unspecified; E78.2 Mixed hyperlipidemia; E87.6 Hypokalemia; I89.0 Lymphedema, not elsewhere classified; M32.9 Systemic lupus erythematosus, unspecified; K52.9 Noninfective gastroenteritis and colitis, unspecified; M10.9 Gout, unspecified; Z82.49 Family history of ischemic heart disease and other diseases of the circulatory system; Z91.81 History of falling; Z79.01 Long term (current) use of anticoagulants; Z91.19 Patient's noncompliance with other medical treatment and regimen; Z86.718 Personal history of other venous thrombosis and embolism
CPT/HCPCS: 36415; 70450; 70496; 70498; 71045; 76937; 80053; 80061; 81000; 83735; 84443; 85007; 85025; 85027; 85610; 85730; 87077; 87088; 87186; 93005; 93306; 93880; 96374; 96375

== ENCOUNTER 2018-07-21 10:08 | Inpatient (IN) | payer MEDICARE ==
[~2018-07-21] VITALS: Ht 152.4 cm; Wt 75.4 kg
[~2018-07-21 10:08] MED LIST changes: +ALLO100T PO; +ASPI-983 PO; +ATOR20TA66 PO; +FLUO40CA12 PO; +GABA-486 PO; +HYDR-3812 PO; +NIAC250T8 PO; +ONDA4TAB10 PO; +PRD10T PO; +S-AD400T3 PO; +WARF-48 PO
--- NOTE | 2018-07-21 11:00 | NUR ---
EUGENIO PARKER admitted to room 227-1, with an admitting diagnosis of CVA , on 07/21/[address] [place] [address], [facility] via , accompanied by STAFF.EUGENIO PARKER introduced to surroundings, call light, bed controls, phone, TV, temperature control, lights, meal times, smoking policy, visitor policy, side rail policy, bathrooms and showers. Patient Rights given to patient in the handbook.EUGENIO PARKER verbalizes understanding that [facility] is not responsible for the loss or damage to any personal effects or valuables that are kept in the patients posession during their hospitalization. The following Patient Care Plans were discussed with the PT: Discharge Planning AND CVA. EUGENIO PARKER verbalizes understanding of Interdisciplinary Patient Education. Patient received Patient Rights Booklet, which includes Privacy Act Statement and Data Collection Information Summary. PLEASANT AND COOPERATIVE. ONLY PAIN IS FROM LUPUS. HAS MILD SIDE WEAKNESS AND BLURRY VISION LEFT EYE.
[2018-07-21 11:20] VITALS: BP 138/84
--- NOTE | 2018-07-21 11:20 | NUR ---
REVIEWED MED REC THE MEDICATIONS WERE REPORTED UPON ADMISSION TO 4TH FLOOR. NO CHANGES WERE MADE WHEN THE PATIENT DISCHARGED TO REHAB.
--- NOTE | 2018-07-21 11:20 | NUR ---
Pastoral care visit.
--- NOTE | 2018-07-21 11:54 | Physical Therapy Evaluation ---
PT Evaluation-General Medical Diagnosis Admission Date Jul 21, 2018 at 11:00 Medical Diagnosis: CVA Onset Date: Jul 15, 2018 Therapy Diagnosis Therapy Diagnosis: impaired mobility, strength, endurance, balance Height/Weight Height (Feet): 5 Height (Inches): 0.00 Weight (Pounds): 161 Weight (Ounces): 7.0 Referral Physician: Slime Mosquera DO Reason for Referral: Evaluation/Treatment Medical History Pertinent Medical History: CAD, HTN Additional Medical History hx of right ankle fx, heart surgery, DJD B Knees, cervical CA. Current History Pt admitted to hospital with complaints of not being able to see out of her left eye and abdominal pain Reviewed History: Yes Social History Home: Single Level Current Living Status: Children Prior/Core FIM Prior Level of Function Therapy Code Descriptions/Definitions Functional [place] Measure: 0=Not Assessed/NA 4=Minimal Assistance 1=Total Assistance 5=Supervision or Setup 2=Maximal Assistance 6=Modified [place] 3=Moderate Assistance 7=Complete [place] Therapy Quality Codes: 6 Independent with activity with or without an assistive device 5 Patient requires set up or clean up by helper. Patient completes activity by themselves 4 Supervision or touching assist (CGA). [place] provide cues , steadying assist 3 The helper provides less than half the effort to complete the activity 2 The helper provides more than half the effort to complete the activity 1 Dependent. The helper does all the effort to complete an activity 7 Patient refused to complete or attempt activity 9 The patient did not perform the activity before the current illness or injury 88 Not attempted due to Medical conditions or safety concerns Functional Abilities and Goals: Independent: Patient completed the activities by him/herself, with or without an assistive device, with no assistance from a helper. Needed Some Help: Patient needed partial assistance from another person to complete activities. Dependent: A helper completed the activities for the patient. Unknown: Not Applicable: Bed Mobility: 7 Transfers (B,C,W/C) (FIM): 7 Gait: 7 Stairs: 7 Indoor Mobility (Ambulation): Independent Stairs: Independent Pt reports she was indep at home previously; reports she used a cane intermittently PT Evaluation-Current Subjective Patient in recliner pre tx, agrees to PT, no complaints of pain at rest. Pt/Family Goals to be independent at home Objective Patient Orientation: Person, Place, Situation ROM/Strength ROM Lower Extremities WNL Strenght Lower Extremities right lower extremity (hip flexion 4/5, knee flexin 4/5, knee extension 4/5, dorsiflexion 4+/5), left lower extremity (hip flexion 3+/5, knee flexin 4-/5, knee extension 4-/5, dorsiflexion 4+/5) Neuromuscular (Tone, Coordination, Reflexes) Patient has impaired peripheral vision on the left side. She says it has improved during her stay at the hospital and now is mostly a blurry area. Sensory Hearing: Functional Sensation Right Lower Extremit: Impaired Sensation Left Lower Extremity: Impaired Sensation Lower Extremities Patient seems to have decreased light touch sensation in both feet. Transfers Therapy Code Descriptions/Definitions Functional [place] Measure: 0=Not Assessed/NA 4=Minimal Assistance 1=Total Assistance 5=Supervision or Setup 2=Maximal Assistance 6=Modified [place] 3=Moderate Assistance 7=Complete [place] Therapy Quality Codes: 6 Independent with activity with or without an assistive device 5 Patient requires set up or clean up by helper. Patient completes activity by themselves 4 Supervision or touching assist (CGA). [place] provide cues , steadying assist 3 The helper provides less than half the effort to complete the activity 2 The helper provides more than half the effort to complete the activity 1 Dependent. The helper does all the effort to complete an activity 7 Patient refused to complete or attempt activity 9 The patient did not perform the activity before the current illness or injury 88 Not attempted due to Medical conditions or safety concerns Transfers (B, C, W/C) (FIM): 4 Scootin Rollin Roll Left to Right (QC): 4 Supine to/from Sit: 5 Sit to/from Stand: 4 Sit to Lying (QC): 4 Lying to Sitting/Side of Bed(Q: 4 Sit to Stand (QC): 4 Chair/Wfg-mp-Xtowe Xfer(QC): 4 Car Transfer (QC): 4 Patient performs bed mobility with SBA, supine <-> sit with SBA, sit <-> stand with CGA, transfers with CGA, car transfer CGA. Patient needs occasional cues for positioning and safety. Gait Does the Patient Walk?: Yes Mode of Locomotion: Walk Anticipated Mode of Locomotion: Walk Gait (FIM): 4 Walk 10 feet (QC): 4 Walk 50 ft with 2 Turns(QC): 4 Walk 150 ft (QC): 4 Walking 10ft/uneven surface-QC: 4 Distance: 150'x2, 100' Gait Level of Assist: 4 Gait Persons Needed: 1 Gait Assistive Device: Cane Small Base Quad Comments/Gait Description Patient can ambulate 150' with a quad cane with CGA (including 50' with at least 2 turns of 90 degrees and 10' over an uneven surface). Patient insists on using a quad cane but has a 4 wheeled walker at home she asked if she could have it brought here. The 4 wheeled walker would be better. Patient has frequent moments of unsteadiness using the quad cane, no sagrario LOB. Stairs Stairs (FIM): 2 #of Steps: 4 Level of Assist: 4 1 Step (curb) (QC): 4 4 Steps (QC): 4 Patient can go up and down 4 steps using 2 handrails with CGA. Cues for foot placement. Balance Sitting Static: Normal Sitting Dynamic: Normal Standing Static: Fair Standing Dynamic: Fair Treatment Parallel bars exercises x15 (heel raises, mini-squats, hip abd), seated LAQ alternating for 5 min, NuStep level 4 for 15 min Assessment/Needs Patient has impaired mobility, strength, endurance, balance, post CVA. She does not seem to be confused but is at risk for fall. Rehab Potential: Fair PT Short Term Goals Short Term Goals Time Frame: July 28, 2018 Transfers (B,C,W/C) (FIM): 5 Gait (FIM): 5 Gait Distance Comment: 200' Gait Level of Assist: 5 Gait Assistive Device: Walker 4 Wheeled, Cane Small Base Quad PT Snf Goals Size Painter Goals PT Snf Goals Time Frame: August 11, 2018 Transfers (B,C,W/C) (FIM): 6 Sit to Lying (QC): 6 Lying-Sitting on Side/Bed(QC): 6 Sit to Stand (QC): 6 Rollin Roll Left to Right (QC): 6 Chair/Ykq-we-Pxgot Xfer(QC): 6 Car Transfer (QC): 6 Gait (FIM): 6 Distance: 300' Walk 10 feet (QC): 6 Walk 10ft-Uneven Surface(QC): 6 Walk 50ft with 2 Turns (QC): 6 Walk 150 ft (QC): 6 Gait Level of Assist: 6 Gait Assistive Device: Walker 4 Wheeled, Cane Small Base Quad Stairs (FIM): 5 # of Steps: 12 1 Step (curb) (QC): 4 4 Steps (QC): 4 12 Steps (QC): 4 Stairs Level Of Assist: 5 PT Plan Problem List Problem List: Activity Tolerance, Functional Strength, Safety, Balance, Gait, Transfer, Bed Mobility Treatment/Plan Treatment Plan: Continue Plan of Care Treatment Plan: Bed Mobility, Education, Functional Activity Ghada, Functional Strength, Group Therapy, Gait, Safety, Therapeutic Exercise, Transfers Treatment Duration: August 11, 2018 Frequency: At least 5 of 7 days/Wk (IRF) Estimated Hrs Per Day: 1.5 hours per day Patient and/or Family Agrees t: Yes Safety Risks/Education Patient Education: Gait Training, Transfer Techniques, Steps, Correct Positioning, Safety Issues Teaching Recipient: Patient Teaching Methods: Demonstration, Discussion Response to Teaching: Reinforcement Needed Discharge Recommendations Plan Patient will perform bed mobility and transfer training, balance and endurance training, functional strengthening, stair training, gait training, and education , to improve functional mobility and independence at home. Therapy D/C Recommendations: Home w/ Family Support Time/GCodes Time In: 1045 Time Out: 1145 Total Billed Treatment Time: 60 Total Billed Treatment 1 visit EVM 30' EX 20' GT 10' ROSALES CHI PT Jul 21, 2018 11:54
[2018-07-21] MEDS ORDERED: ALPRAZolam 0.25 MG (XANAX) TAB PO PRN (13:00)
[2018-07-21] MEDS ORDERED: CALCIUM CARBONATE 500 MG (TUMS) TAB.CHEW PO PRN (13:00)
[2018-07-21] MEDS ORDERED: ONDANSETRON 4 MG (ZOFRAN) ORAL DISSOLVE TAB PO PRN ×3 (13:00)
[2018-07-21] MEDS ORDERED: ACETAMINOPHEN 500 MG TAB (TYLENOL) PO PRN ×2 (13:00)
[2018-07-21] MEDS ORDERED: DOCUSATE SODIUM 100 MG (COLACE) CAP PO PRN (13:00)
[2018-07-21] MEDS ORDERED: diphenhydrAMINE 25 MG TAB (BENADRYL) PO PRN (13:00)
--- NOTE | 2018-07-21 13:34 | Occupational Therapy Eval ---
OT Evaluation-General/PLF Medical Diagnosis Admission Date Jul 21, 2018 at 11:00 Medical Diagnosis: CVA Onset Date: Jul 15, 2018 Therapy Diagnosis Therapy Diagnosis: impaired ADLs and mobility Height/Weight Height (Feet): 5 Height (Inches): 0.00 Weight (Pounds): 167 Weight (Ounces): 3.0 Precautions Precautions/Isolations: Fall Prevention, Standard Precautions Referral Physician: Slime Mosquera DO Referral Reason: Activity Tolerance, Self Care, Evaluation/Treatment, Strengthening/ROM Medical History Pertinent Medical History: CAD, HTN Additional Medical History Lupus Reviewed History: Yes Social History Home: Single Level Current Living Status: Children Entry Into Home: Stairs Without Railing Steps Into Home: 2 ADL-Prior Level of Function Therapy Code Descriptions/Definitions Functional [place] Measure: 0=Not Assessed/NA 4=Minimal Assistance 1=Total Assistance 5=Supervision or Setup 2=Maximal Assistance 6=Modified [place] 3=Moderate Assistance 7=Complete [place] Therapy Quality Codes: 6 Independent with activity with or without an assistive device 5 Patient requires set up or clean up by helper. Patient completes activity by themselves 4 Supervision or touching assist (CGA). [place] provide cues , steadying assist 3 The helper provides less than half the effort to complete the activity 2 The helper provides more than half the effort to complete the activity 1 Dependent. The helper does all the effort to complete an activity 7 Patient refused to complete or attempt activity 9 The patient did not perform the activity before the current illness or injury 88 Not attempted due to Medical conditions or safety concerns Functional Abilities and Goals: Independent: Patient completed the activities by him/herself, with or without an assistive device, with no assistance from a helper. Needed Some Help: Patient needed partial assistance from another person to complete activities. Dependent: A helper completed the activities for the patient. Unknown: Not Applicable: Self Care: Independent Functional Cognition: Independent DME/Equipment: Bath Bench, Tub/Shower pt reports independent PLOF using quad cane in public and rollator within the house. 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 Occupation: [employer] [address] Self: Yes OT Current Status Subjective pt laying in bed upon OT Arrival in no apparent distress. pt agreed to OT evaluation session/ treatment session. pt pleasant and cooperative to work with. Pain Numeric Pain Scale: 3 Comment: "all over" --pt stated this is lupus pain and is consistant. Mental Status/Objective Patient Orientation: Person, Place, Time, Situation, Normal For Age Current Glasses/Contacts: Yes Hearing Aids: No Dentures/Partials: Yes Hand Dominance: Right Upper Extremity ROM WFL Upper Extremity Coordination WFL Upper Extremity Sensation WFL Upper Extremity Strength L UE shoulder 3+/5 pt stated she had fallen 2 years ago on Left shoulder and lost ROM/ strength. pt does have full ROM but decrease strength this date. left elbow: WFL elbow flec/ ext WFL Right UE WFL ADL-Treatment Eating (FIM): 6 (dentures) Eating (QC): 6 Grooming (FIM): 4 (CGA while standing at sink) Oral Hygiene (QC): 4 Bathing (FIM): 4 (CGA for safety/ balance ) Bathing Location: L Arm, R Arm, L Upper Leg, R Upper Leg, L Lower Leg ( including foot), R Lower Leg (including foot), Chest, Abdomen, Buttocks, Perineal Area Shower/Bathe Self (QC): 4 Upper Body Dressing (FIM): 5 Upper Body Dressing (QC): 4 Lower Body Dressing (FIM): 4 Lower Body Dressing (QC): 4 On/Off Footwear (QC): 4 Toileting (FIM): 4 Toileting Hygiene (QC): 4 Transfers (B, C, W/C) (FIM): 4 (CGA fro safety/ balance. use of quad cane) Toilet/Commode Transfer (FIM): 4 Toilet Transfer (QC): 4 Shower Transfer (FIM): 4 Other Treatments pt demo ability to perform functional mobility approx 150 ft with CGA using quad cane. pt demo ability to perform 5 minutes forward on UBE and 5 minutes back work to increase activity tolerance for daily activities. noted pt required frequent rest breaks secondary to limited activity tolerance. pt education on energy conservation/ Education OT Patient Education: Energy conservation, Progress toward Goal/Update tx plan , Purpose of tx/functional activities, Rehab process, Transfer techniques Teaching Recipient: Patient Teaching Methods: Demonstration, Discussion Response to Teaching: Verbalize Understanding, Return Demonstration OT Short Term Goals Short Term Goals Eating(FIM): 7 Grooming(FIM): 6 Bathing(FIM): 5 Upper Body Dressing(FIM): 5 Lower Body Dressing(FIM): 5 Toileting(FIM): 5 Transfers (B,C,W/C) (FIM): 5 Toilet/Commode Transfer(FIM): 5 Tub Transfer(FIM): 5 Shower Transfer(FIM): 5 1=Demonstrate adherence to instructed precautions during ADL tasks. 2=Patient will verbalize/demonstrate understanding of assistive devices/ modifications for ADL. 3=Patient will improve strength/tolerance for activity to enable patient to perform ADL's. OT Alf Goals Blowing Engineer Goals Eating (FIM): 6 Eating (QC): 6 Groomin Oral Hygiene (QC): 7 Bathing(FIM): 6 Bathing Location: L Arm, R Arm, L Upper Leg, R Upper Leg, L Lower Leg ( including foot), R Lower Leg (including foot), Chest, Abdomen, Buttocks, Perineal Area Shower/Bathe Self (QC): 6 Upper Body Dressing(FIM): 7 Upper Body Dressing (QC): 6 Lower Body Dressing(FIM): 6 Lower Body Dressing (QC): 6 On/Off Footwear (QC): 6 Toileting(FIM): 6 Toileting Hygiene (QC): 6 Transfers (B,C,W/C) (FIM): 6 Toilet/Commode Transfer(FIM): 6 Toilet/Commode Transfer (QC): 6 Tub Transfer(FIM): 6 Shower Transfer(FIM): 6 1=Demonstrate adherence to instructed precautions during ADL tasks. 2=Patient will verbalize/demonstrate understanding of assistive devices/ modifications for ADL. 3=Patient will improve strength/tolerance for activity to enable patient to perform ADL's. OT Education/Plan Problem List/Assessment pt presents with functional limitation affecting area s of ADLS and functional transfers with deficits in: decrease vision with left eye. pt reports 30% "wavy " from left side of eye. pt reports she is able to see out of eye, it is just wavy," decrease dynamic/ static standing balance, decrease activity tolerance/ endurance, decrease UE strength, impaired IADLs, and overall safety with functional activities in standing. pt would benefit from skilled OT Services to increase overall independence with ADLS/ functional transfers and to address above mention deficits. Discharge Recommendations Plan/Recommendations: Continue POC Barriers to Progress decrease vision in left eye Treatment Plan/Plan of Care Treatment,Training & Education: Yes Patient would benefit from OT for education, treatment and training to promote independence in ADL's, mobility, safety and/or upper extremity function for ADL' s. Plan of Care: ADL Retraining, Caregiver Training, Concurrent Therapy, Functional Mobility, Group Exercise/Act as Ind, UE Funct Exercise/Act, UE Neuromus Re-Ed/Coord, Visual/Perceptual Retrain Treatment Duration: August 11, 2018 Frequency: At least 5 of 7 days/Wk (IRF) Estimated Hrs Per Day: 1.5 hours per day Agreement: Yes Rehab Potential: Fair Time/GCodes Start Time: 12:45 Stop Time: 14:15 Billed Treatment Time EVL 15 minutes ADL 60 minutes, 4 units FA 15 minutes, 1 unit DOMINGO HALL OT Jul 21, 2018 13:34
--- NOTE | 2018-07-21 14:00 | NUR ---
HANK, COMMERCIAL PROJECT MANAGER, INFORMED PATIENT WOUND LIKE TO FILL OUT LIVING WILL AND DPOA.
--- NOTE | 2018-07-21 14:14 | Progress Note-Cardiology ---
Cardiology SOAP Progress Note Subjective: Up with PT Objective: I&O/Vital Signs 07/21/18 07/21/18 07/21/18 07/21/18 11:20 12:34 15:23 15:49 Temp 96.0 98.0 Pulse 82 88 88 Resp 18 16 B/P (MAP) 138/84 (102) 121/79 (93) Pulse Ox 97 97 O2 Delivery Room Air Room Air Room Air 07/21/18 17:18 O2 Delivery Room Air Weight (Pounds): 167 Weight (Ounces): 3.0 Weight (Calculated Kilograms): 75.176453 Constitutional: AAO x 3, well-developed, well-nourished Respiratory: chest expansion is symmetric, chest is bilaterally symmetric, lungs clear to auscultation, other (prolonged expiratory phase) Cardiovascular: regular rate-rhythm; No JVD; S1 and S2 Gastrointestional: No tender; soft, round, audible bowel sounds Extremities: other ((RLE visibly larger than left (reports chronic)), no lower extremity edema bilateral Neurologic/Psychiatric: other ((L-sided visual field cut in both eyes)), grossly intact, power is 5/5 both on sides Skin: No rash, No ulcerations A/P: Assessment: CVA with L homonymous hemianopsia - small to moderate-sized area of acute/ subacute infarct involving the right occipital lobe. There is no evidence of intra-cranial hemorrhage, brain herniation, or midline shift on CT of the head on 07-15-18. Management of CVA is by Dr Mosquera Carotid artery disease - Per u/s of 07-15-18, there is mod bilat carotid arterial plaque, worse (50-70% stenosis) on the right UTI - management by Dr Mosquera Cardiac cath of July [address] Olvera showed multi-vessel dz - 60-70% mid-LAD involving origin of relatively sm caliber diag branch. 50-60% L Cx. RCA - large and dominant with 50% stenosis mid-vessel and 60% distal. LVEF 60%. Referred to Dr. Patel of cardiothoracic services at [facility] - medical tx advised at that time - has had no f/u Echo of 07/16/18: LVEF 45-50%, mod conc LVH, grade 1 caldwell dysfxn, PASP 25-30 mmHg H/O cervical cancer for which she has undergone chemo (last tx 12 years ago) H/O sleep apnea for which she is non-compliant with CPAP tx HLD - statin tx followed by her PCP H/O sinus bradycardia and V-tach during ED visit in November 2017 - transferred to [facility] at that time Chronic diarrhea Reports chronic lymphedema to right leg Depression Lupus Gout Family h/o CAD (son has had coronary stenting; mother has had CVA) Plan: Plan: Supra-therapeutic INR - hold warfarin today. Continue current regimen Physician Assessment Physician Assessment Gen malaise. No cp or palp or syncope. Exertional shortness of breath Cor reg Lungs: decreased bs at bases Ext: no c/c/e A&R * As documented in our note above that I updated (italics) and as noted below * D/c TATY Pierre MUSIC SUPERVISOR Jul 21, 2018 14:14 DIMITRI OLVERA MD FACP [facility] Jul 21, 2018 20:11
[2018-07-21] MEDS ORDERED: CATHETER FLUSH 10 ML SYR IV PRN (14:15)
[2018-07-21] MEDS: GABAPENTIN 100 MG (NEURONTIN) CAP PO SCH ×2 (14:40→20:50)
--- NOTE | 2018-07-21 15:22 | NUR ---
GROUNDING ENGINEER met with patient to complete initial assessment. Patient was alert and oriented and agreeable to assessment. Patient admitted to ARU from internally following a CVA. Prior to CVA patient resided with adult son, Shubham in a one level home in [place], [place]. The home has 2 steps to enter with railing. Patient reports utilizing a quad cane for community ambulation and a Rollator walker for in-home ambulation prior to CVA. 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 PCP identified as Dr. Daniel Meade at [facility]. Primary contact identified as juan Lagunas of [place] at [phone] and secondary contact as Jus martinez of [place] at [phone]. Per patient, son Shubham does reside with her; however, does not provide necessary support and is not listed as a reliable contact. Insurance verified as [employer] with required clinical update due on 07/27. To be reviewed typical a RU length of stay and weekly team conferences, patient expresses no concerns at this time. GROUNDING ENGINEER will continue to follow
--- NOTE | 2018-07-21 15:30 | Physical Therapy Daily Note ---
PT Daily Note-Current Subjective Pt. states she prefers to use QC , has a FWW but is picky about the walker she uses and wants her family to bring hers from home Pain Location: No Pain Reported Mental Status Patient Orientation: Normal For Age Attachments: Other-See Comments (telemetry) Transfers Therapy Code Descriptions/Definitions Functional [place] Measure: 0=Not Assessed/NA 4=Minimal Assistance 1=Total Assistance 5=Supervision or Setup 2=Maximal Assistance 6=Modified [place] 3=Moderate Assistance 7=Complete [place] Therapy Quality Codes: 6 Independent with activity with or without an assistive device 5 Patient requires set up or clean up by helper. Patient completes activity by themselves 4 Supervision or touching assist (CGA). [place] provide cues , steadying assist 3 The helper provides less than half the effort to complete the activity 2 The helper provides more than half the effort to complete the activity 1 Dependent. The helper does all the effort to complete an activity 7 Patient refused to complete or attempt activity 9 The patient did not perform the activity before the current illness or injury 88 Not attempted due to Medical conditions or safety concerns sit to stand from multiple level chairs, and toilet all SBA Gait Training Gait Assistive Device: Cane Small Base Quad 300ft,[id number] QC CGA to min assist, pt. with 2 episodes of crossover gait with min LOB and self corrected Exercises Seated Therapy Exercises: Ankle pumps, Sit to stand, Long arc quads, Hip flexion Seated Reps: 12 Treatments pt. crossed over many different surfaces as well as threshholds and carpet to tile etc. Pt. managed buttons for elevator and followed some signage . Pt. enjoyed the fish aquariums on lower floor as well as some window shopping at [employer], bending and twisting to view certain items Assessment Current Status: Good Progress pt. wants to be ad nick but this LOOM FIXER SUPERVISOR recommends she wait until further therapy establishes she is safe to be up ad nick PT Short Term Goals Short Term Goals Time Frame: July 28, 2018 Transfers (B,C,W/C) (FIM): 5 Gait (FIM): 5 Gait Distance Comment: 200' Gait Level of Assist: 5 Gait Assistive Device: Walker 4 Wheeled, Cane Small Base Quad PT Long-Term Goals Long-Term Goals PT Sap Functional Analyst Goals Time Frame: August 11, 2018 Transfers (B,C,W/C) (FIM): 6 Sit to Lying (QC): 6 Lying-Sitting on Side/Bed(QC): 6 Sit to Stand (QC): 6 Rollin Roll Left to Right (QC): 6 Chair/Kbx-vc-Azjgq Xfer(QC): 6 Car Transfer (QC): 6 Gait (FIM): 6 Distance: 300' Walk 10 feet (QC): 6 Walk 10ft-Uneven Surface(QC): 6 Walk 50ft with 2 Turns (QC): 6 Walk 150 ft (QC): 6 Gait Level of Assist: 6 Gait Assistive Device: Walker 4 Wheeled, Cane Small Base Quad Stairs (FIM): 5 # of Steps: 12 1 Step (curb) (QC): 4 4 Steps (QC): 4 12 Steps (QC): 4 Stairs Level Of Assist: 5 PT Plan Treatment/Plan Treatment Plan: Continue Plan of Care Treatment Plan: Bed Mobility, Education, Functional Activity Ghada, Functional Strength, Group Therapy, Gait, Safety, Therapeutic Exercise, Transfers Treatment Duration: August 11, 2018 Frequency: At least 5 of 7 days/Wk (IRF) Estimated Hrs Per Day: 1.5 hours per day Patient and/or Family Agrees t: Yes Safety Risks/Education Patient Education: Gait Training, Transfer Techniques, Correct Positioning, Disease Process, Safety Issues Teaching Recipient: Patient Teaching Methods: Demonstration, Discussion Response to Teaching: Verbalize Understanding, Return Demonstration, Reinforcement Needed Time/GCodes Time In: 1500 Time Out: 1530 Total Billed Treatment Time: 30 Total Billed Treatment 1,GT20m,FA10m G Codes Necessary: ANNALISA Higuera LOOM FIXER SUPERVISOR Jul 21, 2018 15:30
[2018-07-21 15:49] VITALS: BP 121/79
--- NOTE | 2018-07-21 16:14 | ST Cognitive Linguistic Eval ---
Speech Evaluation-General Medical Diagnosis CVA Onset Date: Jul 15, 2018 Therapy Diagnosis Therapy Diagnosis: Cognitive-communication Precautions Precautions/Isolations: Fall Prevention, Standard Precautions Referral Referring Physician: Dr. Mosquera Reason for Referral: Evaluation/Treatment Medical History Pertinent Medical History: CAD, HTN Reviewed History: Yes Social History Current Living Status: Children Speech PLF-Current Status Prior Level of Function The patient lived with her son and was independent with her daily needs. Subjective The patient was cooperative with the cognitive evaluation process. Language Eval: Auditory Comprehends Simple Yes/No Ques: Functional Indent/Objects Multiple [place]: Functional Ident/Pics in Multiple [place]: Functional Follows 1-Step Commands: Functional Follows Complex Directions: Functional Follows General Conversations: Functional Language Eval: Verbal Language Completes Spontaneous Greeting: Functional Produces Auto, Serial Info: Functional Imitates Simple Words/Phrases: Functional Word Finding: Functional Requests Basic Needs: Functional States Basic Personal Info: Functional Expresses Complex Ideas: Functional Objective Cognitive Domain Attention: WNL Memory: WNL Problem Solving: Functional Executive Functions: WNL Visuospatial Skills: WNL Composite Severity Rating: WNL Clock Drawing Severity Rating: WNL Objective Formal/Standardized Tests Frankie Cognitive Assessment (MOCA) Results Visuospatial/Executive: 5/5, Namin/3, Memory: Immediate: 5/5, Delayed 4/5, Attention: 6/6, Language: 3/3, Abstraction: 2/2, Orientation: 6/6 Oral Motor/Speech Production Within Functional Limits Impression The patient is a pleasant 73 year old woman who was admitted to the ARU s/p CVA for strengthening before returning home. The patient does not require skilled ST at this time. Communication/Social Cognition Comprehension: 7 Expression: 7 Social Interaction: 7 Problem Solvin Memory: 7 Speech Patient Assess Expression of Ideas/Wants: Expression (4) Understanding Verbal Content: Understands (4) Brief Interview-Mental Status: Yes Repetition of Three Words: Three (3) Temporal Orientation: Year: Correct (3) Temporal Orientation: Month: Accurate within 5 days(2) Temporal Orientation: Day: Correct (1) Recall : Wear to say "Sock": Yes, no cue required (2) Recall : Color: Yes, no cue required (2) Recall : Bed: Yes, no cue required (2) Memory/Recall Ability: Current season, Location of own room, That he or she is in a hsp/hsp unit Speech-Plan Patient/Family Goals Patient/Family Goals: The patient plans on returning home where she lives with her son post rehab. Treatment Plan Speech Therapy Treatment Plan: Discontinue ST The patient does not require skilled ST at this time. Treatment Duration: Jul 21, 2018 Frequency: 1 time per week Estimated Hrs Per Day: .25 hour per day Rehab Potential: Fair Barriers to Learning: None identified Pt/Family Agrees to Plan: Yes Safety Risks/Education Teaching Recipient: Patient Teaching Methods: Discussion Response to Teaching: Verbalize Understanding Education Topics Provided: Safety within her room Time Speech Therapy Time In: 15:30 Speech Therapy Time Out: 15:45 Total Billed Time: 15 Billed Treatment Time 1, SPSNDCOMP BILLIE Wen Jul 21, 2018 16:14
[2018-07-21] MEDS: warFARin 5 MG (COUMADIN) TAB PO SCH (16:53)
[2018-07-21] MEDS: NITROFURANTOIN 100 MG (MACROBID) CAPSULE PO SCH (16:57)
[2018-07-21] MEDS: CATHETER FLUSH 10 ML SYR IV SCH (20:41)
[2018-07-21] MEDS: ATORVASTATIN 20 MG (LIPITOR) TABLET PO SCH (20:50)
[2018-07-21] MEDS: HYDROcodone/APAP 5 MG/325 MG (LORTAB) TAB PO PRN (20:50)
[2018-07-21] MEDS: DOCUSATE SODIUM 100 MG (COLACE) CAP PO SCH (20:51)
[2018-07-22] MEDS: NITROFURANTOIN 100 MG (MACROBID) CAPSULE PO SCH ×2 (05:35→16:26)
[2018-07-22] MEDS: predniSONE 10 MG TAB PO SCH (05:36)
[2018-07-22] MEDS: CATHETER FLUSH 10 ML SYR IV SCH ×3 (05:36→20:43)
[2018-07-22] MEDS: HYDROcodone/APAP 5 MG/325 MG (LORTAB) TAB PO PRN ×2 (05:36→17:43)
[2018-07-22 05:57] VITALS: BP 174/91
[2018-07-22 07:08] LABS: HEMOGLOBIN 11.3 G/DL (11.5-16.0); MEAN PLATELET VOLUME 10.4 FL (7.4-10.4); RED CELL DISTRIBUTION WIDTH 15.6 % (10.0-14.5); WHITE BLOOD COUNT 8.5 10^3/uL (4.3-11.0)
[2018-07-22 07:19] LABS: INR 2.9 (0.8-1.4); PROTHROMBIN TIME PATIENT 31.5 SEC (12.2-14.7)
[2018-07-22 07:33] LABS: ALBUMIN 3.6 GM/DL (3.2-4.5); BILIRUBIN,TOTAL 0.4 MG/DL (0.1-1.0); CREATININE SERUM 1.4 MG/DL (0.60-1.30); POTASSIUM 3.9 MMOL/L (3.6-5.0); TOTAL PROTEIN 5.9 GM/DL (6.4-8.2)
--- NOTE | 2018-07-22 08:40 | PM&R H&P / Post Admit Assess ---
History of Present Illness HPI/Chief Complaint Chief compliant: Stroke HPI: This is a 73yoWF that I have taken care of for the past week for [facility] who presented with a completed stroke with a right occipital infarct that was noted and confirmed on CT scan, did not even require an MRI and suffered a significant amount of left peripheral vision loss who presented to inpatient rehab in need of intensive therapy for fall prevention and to work on balance and compensatory mechanisms to make up for the loss of vision on the left peripherally. Barriers to returning home will be safely ambulating with assistive devices along with family support in addition we will work on Coumadin therapy since she has been subtherapeutic and super therapeutic on labs with 3.7 INR today in addition noted a creatinine bump at 1.37 so will need close follow up in inpatient rehab for blood pressure management, Coumadin level evaluation, and monitoring blood pressure management along with cardiology care. Her prior level of functioning was independent without a walker but she did suffer falls at home even prior to the stroke. 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 Source: patient Date Seen 07/22/18 Time Seen by a Provider: 08:30 Attending Physician Slime Mosquera DO [facility] Referring Physician Date of Admission Jul 21, 2018 at 11:00 Home Medications & Allergies Home Medications Reviewed patient Home Medication Reconciliation performed by pharmacy medication reconciliations hvac field service technician and/or nursing. Patients Allergies have been reviewed. Allergies Allergies Coded Allergies No Known Drug Allergies (Verified10/21/08) Past [id number] Hx Past Med/Social Hx: Reviewed Nursing Past Med/Soc Hx, Reviewed and Corrections made Patient Social History Marrital Status: single Employed/Student: retired Alcohol Use: Denies Use Recreational Drug Use: No Smoking Status: Current Everyday Smoker Type Used: Cigarettes 2nd Hand Smoke Exposure: Yes Physical Abuse Screen: No Sexual Abuse: No Recent Foreign Travel: No Contact w/other who traveled: No Recent Hopitalizations: No (CVA 4-19) Recent Infectious Disease Expo: No Immunizations Up To Date Pediatric: No Date of Pneumonia Vaccine: Dec 22, 2008 Date of Influenza Vaccine: Dec 23, 2011 Seasonal Allergies Seasonal Allergies: No Past Medical History Surgeries: Abdominal, Adenoidectomy, Cardiac, Gallbladder, Hysterectomy, Oophorectomy, Orthopedic, Tonsillectomy Currently Using CPAP: No Currently Using BIPAP: No Cardiac: Coronary Artery Disease, High Cholesterol, Hypertension Neurological: Stroke (06/2018) 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: Yes (HX OF VULVAR CA--MODIFIED RADICAL VULVECTOMY 1991) Sexually Transmitted Disease: No HIV/AIDS: No 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 Disorders: Denies Hysterectomy, Menopausal Gastrointestinal: Chronic Diarrhea, Gall Bladder Disease Musculoskeletal: Arthritis Endocrine: Lupus Hearing Impairment: Denies Cancer: Cervical, Vaginal Did You Recieve Any Treatments: Yes What Type of Treatment Did You: Chemotherapy, Radiation, Surgical Intervention Psychosocial: Anxiety, Depression History of Blood Disorders: No Adverse Reaction to Blood [place]: No Family History Patient reports no known family medical history. Review of Systems Constitutional: see HPI, weakness EENTM: blurred vision, vision loss Respiratory: no symptoms reported Cardiovascular: no symptoms reported Gastrointestinal: no symptoms reported Genitourinary: no symptoms reported Musculoskeletal: no symptoms reported Skin: no symptoms reported Psychiatric/Neurological: Numbness, Paresthesia, Weakness All Other Systems Reviewed Negative Unless Noted: Yes Physical Exam Exam Vital Signs Vital Signs Date Time Temp Pulse Resp B/P (MAP) Pulse Ox O2 Delivery O2 Flow Rate FiO2 07/22/18 09:00 Room Air 07/22/18 05:57 97.2 84 18 174/91 (118) 97 Capillary Refill : General Appearance: No Apparent Distress, WD/WN, Chronically ill, Obese HEENT: PERRL/EOMI, Normal ENT Inspection, Pharynx Normal, Moist Mucous Membranes, Other (left peripheral vision loss) Neck: Full Range of Motion, Normal Inspection, Non Tender, Supple Respiratory: Chest Non Tender, Lungs Clear, Normal Breath Sounds, No Accessory Muscle Use, No Respiratory Distress, Decreased Breath Sounds Cardiovascular: Regular Rate, Rhythm, No Edema, No Gallop, No JVD, No Murmur Gastrointestinal: Normal Bowel Sounds, No Organomegaly, No Pulsatile Mass, Non Tender, Soft Back: Normal Inspection, No CVA Tenderness, No Vertebral Tenderness Extremity: Normal Capillary Refill, Normal Inspection, Normal Range of Motion, Non Tender, No Calf Tenderness, No Pedal Edema Neurologic/Psychiatric: Alert, Oriented x3, Normal Mood/Affect, card room manager II-XII Norm as Tested, Abnormal Gait, Motor Weakness (generalized all extremities) Skin: Normal Color, Warm/Dry Lymphatic: No Adenopathy Results Results/Procedures Labs Laboratory Tests 07/22/18 06:45 Patient resulted labs reviewed. Assessment/Plan Assessment and Plan Assess & Plan/Chief Complaint (1) CVA (cerebral vascular accident) with loss of left peripheral vision Status: Acute (2) Lupus (systemic lupus erythematosus) Status: Chronic (3) Smoker Status: Chronic (4) Hypertension Status: Chronic (5) Hyperlipidemia Status: Chronic (6) Anticoagulated on Coumadin Status: Chronic (7) Thrombosis, renal vein Status: Chronic (8) Falls at home prior to CVA Plan: Smoking cessation IRF protocols Coumadin management Cardiology is appreciated ASA Statin Fall risk Balance focus (1) CVA (cerebral vascular accident) Post Admission Physician Asses Date seen by provider: July 22, 2018 Time seen by provider: 09:45 Admisison Dx: (1) CVA (cerebral vascular accident) Status: Acute (2) Abdominal wall pain Status: Acute (3) Hyperlipidemia Status: Chronic (4) Hypertension Status: Chronic (5) Lupus (systemic lupus erythematosus) Status: Chronic (6) Anticoagulated on Coumadin Status: Chronic (7) Thrombosis, renal vein Status: Chronic (8) UTI (urinary tract infection) Status: Acute (9) DVT prophylaxis The preadmission screen agrees with the post admission assessment that the patient is a good candidate for inpatient rehabilitation. The patient will have a comprehensive program of inpatient rehabilitation with a goal of maximizing level of functional independence prior to discharge home. The patient will have PT/OT ninety minutes per day, each discipline, five days a week for gait, strengthening, conditioning, balance, ADLs, any patient/ family/caregiver training as necessary. Speech therapy to do cognitive assessment and treat as indicated. Rehabilitation nursing to assist with bowel, bladder, skin, wound care, medication administration, pain management. Typewriter Operator Automatic to assist with discharge planning, community reentry. SCD's for DVT prophylaxis. She appears to be well motivated to participate in three hours of therapy a day. She should be able to tolerate three hours of therapy a day from a medical standpoint. She should benefit from the three hours of therapy a day. She has a reasonable discharge plan, reasonable discharge rehabilitation goals and a supportive family. She has various comorbidities that need to be closely monitored with medications and treatments adjusted on a daily basis as needed. These include: see list Barriers to discharge for this patient who had been independent prior to this are for her to be modified independent to supervision for ADLs and mobility skills prior to discharge home so as to lessen the burden of the caregivers. Risks for this patient include: 1. Fall 2. Fracture 3. DVT 4. Pulmonary embolism 5. Wound infection 6. Skin breakdown 7. Contractures 8. Poorly controlled pain 9. Urinary retention 10. UTI 11. Respiratory infection 12. Aspiration Estimated Length of Stay: 7 days Prognosis: Rehab prognosis appears good for goal of discharge home modified independent to supervision for ADLs and mobility skills. SLIME MOSQUERA DO July 22, 2018 08:40
--- NOTE | 2018-07-22 08:40 | Individualized Plan of Care ---
Individualized Plan of Care Rehab Nursing IPOC Order Admission Date Jul 21, 2018 at 11:00 Current Orders Orders Admission Order(Inpt,Obs,Sdc) (07/21/18 10:19) Vital Signs: Per Unit Policy ( 08,16,00 (07/21/18 10:19) Director Credit Risk-Inpt Rehab Con (07/21/18 10:19) Rehab Nursing Orders-Ipoc (07/21/18 10:19) Physical Therapy Rehab Orders (07/21/18 10:19) Occupational Therapy Rehab Ord (07/21/18 10:19) Speech Therapy Rehab Orders (07/21/18 10:19) Intake & Output 06,14,22 (07/21/18 10:19) Precautions (Aru) (07/21/18 10:19) Weekly Weight (Lbs) WEEK (07/21/18 10:19) Rehab-Intensity Of Therapy (07/21/18 10:19) Initiate Admission Nursing Pro .admission (07/21/18 10:19) Admission Arrival Bed Request (07/21/18 10:45) General/Regular (07/21/18 Lunch) Ambulate 08,12,20 (07/21/18 12:29) Sequential Compression Device 08,20 (07/21/18 12:29) Dvt/Vte Risk - Notifiy Physici 08 (07/21/18 12:29) Code/Resuscitation (07/21/18 12:46) Activity As Ordered UD (07/21/18 12:46) Follow-Up Appointment (07/21/18 12:46) Initiate Admission Nursing Pro .admission (07/21/18 12:46) Sequential Compression Device 08,20 (07/21/18 12:46) General/Regular (07/21/18 Dinner) Acetaminophen Tablet (Tylenol Tablet) (07/21/18 13:00) Allopurinol Tablet (Zyloprim Tablet) (07/22/18 09:00) Aspirin Chewable Tablet (Baby Aspirin Ch (07/22/18 09:00) Atorvastatin Tablet (Lipitor Tablet) (07/21/18 21:00) Diphenoxylate/Atropine Tablet (Lomotil T (07/21/18 13:00) Fluoxetine Capsule (Prozac Capsule) (07/22/18 09:00) Gabapentin Capsule/Tablet (Neurontin Cap (07/21/18 13:00) Hydrocodone/Apap 5/325 Tablet (Lortab 5 (07/21/18 13:00) Hydroxychloroquine Sulfate (Plaquenil) (07/22/18 08:00) Nitrofurantoin Capsule,Macro (Macrobid C (07/21/18 17:00) Ondansetron Oral Dissolve Tab (Zofran (07/21/18 13:00) Warfarin Tablet (Coumadin Tablet) (07/21/18 18:00) Amlodipine Tablet (Norvasc Tablet) (07/22/18 09:00) Prednisone Tablet (Deltasone Tablet) (07/22/18 07:00) Consult Physician (07/21/18 12:46) Telemetry Nursing Assessment ( (07/21/18 12:46) Acetaminophen Tablet (Tylenol Tablet) (07/21/18 13:00) Alprazolam Tablet (Xanax Tablet) (07/21/18 13:00) Calcium Carbonate Chew Tablet (Antacid C (07/21/18 13:00) Diphenhydramine Tablet (Benadryl Tablet) (07/21/18 13:00) Docusate Sodium Capsule (Colace Capsule) (07/21/18 13:00) Docusate Sodium Capsule (Colace Capsule) (07/21/18 21:00) Ondansetron Oral Dissolve Tab (Zofran (07/21/18 13:00) Ondansetron Oral Dissolve Tab (Zofran (07/21/18 13:00) Cbc No Diff (07/22/18 06:00) Comprehensive Metabolic Panel (07/22/18 06:00) Protime With Inr (07/22/18 06:00) Sodium Chloride Flush (Catheter Flush Sy (07/21/18 14:15) Sodium Chloride Flush (Catheter Flush Sy (07/21/18 22:00) Patient Visit (07/21/18 ) Pt Eval Moderate Complexity (07/21/18 ) Gait Training, Ea 15 Min (07/21/18 ) Exercise Therap, Ea 15 Min (07/21/18 ) Patient Visit (07/21/18 ) Gait Training, Ea 15 Min (07/21/18 ) Functional Activities, Ea 15 (07/21/18 ) Patient Visit (07/21/18 ) Speech Sound Lang Comp (07/21/18 ) Patient Visit (07/22/18 ) Functional Activities, Ea 15 (07/22/18 ) Exercise Therap, Ea 15 Min (07/22/18 ) Gait Training, Ea 15 Min (07/22/18 ) Patient Visit (07/22/18 ) Rehab Nursing Orders: Ongoing Assess. of Function Status Intensity of Therapy to be met Patient to be seen: Min.3h per day/5 of 7d PT IPOC Problem List: Activity Tolerance, Functional Strength, Safety, Balance, Gait, Transfer, Bed Mobility Treatment Plan: Continue Plan of Care Bed Mobility, Education, Functional Activity Ghada, Functional Strength, Group Therapy, Gait, Safety, Therapeutic Exercise, Transfers Treatment Duration: August 11, 2018 Frequency: At least 5 of 7 days/Wk (IRF) Estimated Hrs Per Day: 1.5 hours per day OT IPOC Problems: Impaired Coordination OT Treatment, Training and Edu: Yes OT Problems pt presents with functional limitation affecting area s of ADLS and functional transfers with deficits in: decrease vision with left eye. pt reports 30% "wavy " from left side of eye. pt reports she is able to see out of eye, it is just wavy," decrease dynamic/ static standing balance, decrease activity tolerance/ endurance, decrease UE strength, impaired IADLs, and overall safety with functional activities in standing. pt would benefit from skilled OT Services to increase overall independence with ADLS/ functional transfers and to address above mention deficits. Plan of Care: ADL Retraining, Caregiver Training, Concurrent Therapy, Functional Mobility, Group Exercise/Act as Ind, UE Funct Exercise/Act, UE Neuromus Re-Ed/Coord, Visual/Perceptual Retrain Treatment Duration: August 11, 2018 Frequency: At least 5 of 7 days/Wk (IRF) Estimated Hrs Per Day: 1.[address] IPOC Speech Therapy Treatment Plan: Continue Plan of Care Treatment Duration: Jul 21, 2018 Frequency: 1 time per week Estimated Hrs Per Day: .25 hour per day Director Credit Risk/Case Mgmt Director Credit Risk/Case Managemen: Discharge Planning Dietitian/Field Service Manager Dietitian/Field Service Manager to monitor nutritional status and make changes and/or recommendations as needed and work with speech pathology on dietary upgrades as the occur. Physician IPOC Medical Issues being managed closely and that require the 24 hour availability of a physician: Close monitoring of labile blood pressure considering the setting of a recent stroke to prevent extension of the stroke deficit Monitoring closely the INR since super therapeutic levels noted recently Medical Issues: Bowel/Bladder Function, Falls Precautions, Fluid/Electrolyte/ Nutrition Balance, Pain Management Brief Synthesis of Preadmission Screen, Post-Admission Evaluation, and Therapy Evaluations: Physical therapy will focus on loss of balance and fall prevention Occupational therapy will work on fine motor skills and increase independence with ADLs Medical Prognosis: Good Anticipated Length of Stay: 7 days SERINA DEL REAL DO July 22, 2018 08:40
[2018-07-22] MEDS: DOCUSATE SODIUM 100 MG (COLACE) CAP PO SCH ×2 (09:00→19:49)
--- NOTE | 2018-07-22 09:18 | Occupational Ther Daily Note ---
OT Current Status-Daily Note Subjective pt sitting in recliner chair upon OT arrival in no apparent distress. pt agreed to skilled OT TX session with focus on increase UE strength and standing tolerance for overall ADLs/ functional transfers. pt reports she has been using restroom in room without staff members presents and ambulating to lounge room with family memeber with no staff present./ pt education on importance of having staff present for safety. NSG notified and chair alarm will be placed on pt. Mental Status/Objective Patient Orientation: Normal For Age Therapy Code Descriptions/Definitions Functional [place] Measure: 0=Not Assessed/NA 4=Minimal Assistance 1=Total Assistance 5=Supervision or Setup 2=Maximal Assistance 6=Modified [place] 3=Moderate Assistance 7=Complete [place] ADL-Treatment Therapy Code Descriptions/Definitions Functional [place] Measure: 0=Not Assessed/NA 4=Minimal Assistance 1=Total Assistance 5=Supervision or Setup 2=Maximal Assistance 6=Modified [place] 3=Moderate Assistance 7=Complete [place] Therapy Quality Codes: 6 Independent with activity with or without an assistive device 5 Patient requires set up or clean up by helper. Patient completes activity by themselves 4 Supervision or touching assist (CGA). [place] provide cues , steadying assist 3 The helper provides less than half the effort to complete the activity 2 The helper provides more than half the effort to complete the activity 1 Dependent. The helper does all the effort to complete an activity 7 Patient refused to complete or attempt activity 9 The patient did not perform the activity before the current illness or injury 88 Not attempted due to Medical conditions or safety concerns Grooming (FIM): 5 (close superivison for safety/ balance) Oral Hygiene (QC): 4 Toileting (FIM): 4 (CGA for safety/ balance while pulling up pants) Toileting Hygiene (QC): 4 Transfers (B, C, W/C) (FIM): 4 (CGA fro safety/ balance while usign quad cane) Toilet/Commode Transfer (FIM): 4 Toilet Transfer (QC): 4 Other Treatment pt demo ability to perform functional mobility to tx gym with CGA using quad cane. noted pt furniture surfing. pt education on decrease safety of furniture surfing. pt verbalized understanding. communication with physical therapy about trailing pt with RW instead of quad cane. pt to trail with physical therapy. pt education on HEP to increase UE strength for daily activities with use of RED theraband. pt demo ability to perform left shoulder ABD/ FLEX/ ADD 8X2, Left elbow flexion/ extension 8X2m abd Right shoulder ABD/ FLEX/ ADD 16X1, Left elbow flexion/ extension 16X1. noted decrease strength and endurance for LEFT UE. pt required 30 seconds rest breaks between sets. pt then demo ability to maintain static standing balance for 4 minutes, 49 seconds while completing table top puzzle to increase standing balance for IADLS. pt then required 4 minutes seated rest break. then demo ability to stands again for 53 seconds. pt reports "shakiness of Ajay LE" pt then complete table top puzzle seated with 2LB rest weight on RUE and 1LB wrist weight on LUE. pt then perform function mobility back to room and demo LOB and required MAX-total assist to recovery from LOB. gait belt was use to assist in recovery of LOB. skin check completed and noted no moon, pt reports no pain. Education OT Patient Education: Energy conservation, Home exercise program, Progress toward Goal/Update tx plan, Purpose of tx/functional activities, Transfer techniques Teaching Recipient: Patient Teaching Methods: Demonstration, Discussion Response to Teaching: Verbalize Understanding, Return Demonstration OT Short Term Goals Short Term Goals Eating(FIM): 7 Grooming(FIM): 6 Bathing(FIM): 5 Upper Body Dressing(FIM): 5 Lower Body Dressing(FIM): 5 Toileting(FIM): 5 Transfers (B,C,W/C) (FIM): 5 Toilet/Commode Transfer(FIM): 5 Tub Transfer(FIM): 5 Shower Transfer(FIM): 5 1=Demonstrate adherence to instructed precautions during ADL tasks. 2=Patient will verbalize/demonstrate understanding of assistive devices/ modifications for ADL. 3=Patient will improve strength/tolerance for activity to enable patient to perform ADL's. OT Automated Cutting Machine Operator Goals Mcfp Goals Eating (FIM): 6 Eating (QC): 6 Groomin Oral Hygiene (QC): 7 Bathing(FIM): 6 Bathing Location: L Arm, R Arm, L Upper Leg, R Upper Leg, L Lower Leg ( including foot), R Lower Leg (including foot), Chest, Abdomen, Buttocks, Perineal Area Shower/Bathe Self (QC): 6 Upper Body Dressing(FIM): 7 Upper Body Dressing (QC): 6 Lower Body Dressing(FIM): 6 Lower Body Dressing (QC): 6 On/Off Footwear (QC): 6 Toileting(FIM): 6 Toileting Hygiene (QC): 6 Transfers (B,C,W/C) (FIM): 6 Toilet/Commode Transfer(FIM): 6 Toilet/Commode Transfer (QC): 6 Tub Transfer(FIM): 6 Shower Transfer(FIM): 6 1=Demonstrate adherence to instructed precautions during ADL tasks. 2=Patient will verbalize/demonstrate understanding of assistive devices/ modifications for ADL. 3=Patient will improve strength/tolerance for activity to enable patient to perform ADL's. OT Education/Plan Problem List/Assessment pt presents with functional limitation affecting area s of ADLS and functional transfers with deficits in: decrease vision with left eye. pt reports 30% "wavy " from left side of eye. pt reports she is able to see out of eye, it is just wavy," decrease dynamic/ static standing balance, decrease activity tolerance/ endurance, decrease UE strength, impaired IADLs, and overall safety with functional activities in standing. pt would benefit from skilled OT Services to increase overall independence with ADLS/ functional transfers and to address above mention deficits. Discharge Recommendations Plan/Recommendations: Continue POC Treatment Plan/Plan of Care Patient would benefit from OT for education, treatment and training to promote independence in ADL's, mobility, safety and/or upper extremity function for ADL' s. Plan of Care: ADL Retraining, Caregiver Training, Concurrent Therapy, Functional Mobility, Group Exercise/Act as Ind, UE Funct Exercise/Act, UE Neuromus Re-Ed/Coord, Visual/Perceptual Retrain Treatment Duration: August 11, 2018 Frequency: At least 5 of 7 days/Wk (IRF) Estimated Hrs Per Day: 1.5 hours per day Agreement: Yes Rehab Potential: Fair Time/GCodes Start Time: 08:00 Stop Time: 09:00 Billed Treatment Time ADL 15 minutes, 1 unit FA 45 minutes, 3 units DOMINGO HALL OT July 22, 2018 09:18
[2018-07-22] MEDS: ALLOPURINOL 100 MG (ZYLOPRIM) TAB PO SCH (09:45)
[2018-07-22] MEDS: ASPIRIN 81 MG CHEW (CHILDREN'S ASA) PO SCH (09:45)
[2018-07-22] MEDS: GABAPENTIN 100 MG (NEURONTIN) CAP PO SCH ×3 (09:45→20:58)
[2018-07-22] MEDS: HYDROXYCHLOROQUINE 200 MG (PLAQUENIL) TAB PO SCH (09:45)
[2018-07-22] MEDS: amLODIPine 5 MG (NORVASC) TAB PO SCH (09:45)
[2018-07-22] MEDS: FLUoxetine HCL 20 MG (PROzac) CAP PO SCH (09:45)
--- NOTE | 2018-07-22 10:00 | NUR ---
ADMITTED TO OT THAT SHE HAS BEEN GETTING UP AND GOING TO BATHROOM ON OWN. AGREED WITH THIS NURSE THAT SHE WILL NOT GET UP WITHOUT CALLING FOR HELP. STATES "HAD A GOOD WORKOUT YESTERDAY AND ENJOYED IT".
--- NOTE | 2018-07-22 12:03 | Physical Therapy Daily Note ---
PT Daily Note-Current Subjective Pt reports she had a near fall with OT and needed help to recover and was glad that the wall and therapist were there. Pt agrees to use walker for now instead of cane until her balance, strength and endurance are improved. States her family will bring in her 4WW today or tomorrow probably. Pain Numeric Pain Scale: 0-No Pain Appearance Upon arrival, pt sitting up in chair awake and alert, physician arrived during session. At end of session, pt sitting up in recliner stating she understands not to get up without assist, requesting briefs in case she can't hold her urine since she will have to be waiting for someone to go with her to the bathroom. Pt provided with briefs. Pt with call light, phone, bedside table within reach. Mental Status Patient Orientation: Person, Place, Time, Eyes Open Transfers Therapy Code Descriptions/Definitions Functional [place] Measure: 0=Not Assessed/NA 4=Minimal Assistance 1=Total Assistance 5=Supervision or Setup 2=Maximal Assistance 6=Modified [place] 3=Moderate Assistance 7=Complete [place] Therapy Quality Codes: 6 Independent with activity with or without an assistive device 5 Patient requires set up or clean up by helper. Patient completes activity by themselves 4 Supervision or touching assist (CGA). [place] provide cues , steadying assist 3 The helper provides less than half the effort to complete the activity 2 The helper provides more than half the effort to complete the activity 1 Dependent. The helper does all the effort to complete an activity 7 Patient refused to complete or attempt activity 9 The patient did not perform the activity before the current illness or injury 88 Not attempted due to Medical conditions or safety concerns Transfers (B, C, W/C) (FIM): 5 Sit to/from Stand: 5 pt demo good technique/hand placement with sit to and from stand transitions. Occasional uncontrolled descent with instruction given to perform slowly and safely Gait Training Gait (FIM): 4 Distance (FIM): 3=150 ft Distance: 600 x2 Gait Level of Assist: 4 Gait Persons Needed: 1 Gait Assistive Device: FWW Began with cane, pt with unsteadiness and occasional scissoring gait requiring min assist, switched to FWW, pt's balance greatly improved, no scissoring gait, minimal unsteadiness but with fatigue and c/o minimal soreness in LE's. Exercises Standing Reps: 10 (each ex, each LE in // bars: fwd, retro, left and right lunges/stepping wt shifts) NuStep Minutes: 10 NuStep Workload: 10 (use of UE's and LE's, with LE fatigue by end) Treatments gait, transfers, safety, balance, functional mobility, activity tolerance, strengthening, fall prevention/recovery, education and instruction in use of walker vs cane and not getting up without supervision at this time Assessment Current Status: Good Progress PT Short Term Goals Short Term Goals Time Frame: July 28, 2018 Transfers (B,C,W/C) (FIM): 5 Gait (FIM): 5 Gait Distance Comment: 200' Gait Level of Assist: 5 Gait Assistive Device: Walker 4 Wheeled, Cane Small Base Quad PT Retirement Goals Special Skills Officer Goals PT Retirement Goals Time Frame: August 11, 2018 Transfers (B,C,W/C) (FIM): 6 Sit to Lying (QC): 6 Lying-Sitting on Side/Bed(QC): 6 Sit to Stand (QC): 6 Rollin Roll Left to Right (QC): 6 Chair/Gqm-kz-Mltrc Xfer(QC): 6 Car Transfer (QC): 6 Gait (FIM): 6 Distance: 300' Walk 10 feet (QC): 6 Walk 10ft-Uneven Surface(QC): 6 Walk 50ft with 2 Turns (QC): 6 Walk 150 ft (QC): 6 Gait Level of Assist: 6 Gait Assistive Device: Walker 4 Wheeled, Cane Small Base Quad Stairs (FIM): 5 # of Steps: 12 1 Step (curb) (QC): 4 4 Steps (QC): 4 12 Steps (QC): 4 Stairs Level Of Assist: 5 PT Plan Treatment/Plan Treatment Plan: Continue Plan of Care Treatment Plan: Bed Mobility, Education, Functional Activity Ghada, Functional Strength, Group Therapy, Gait, Safety, Therapeutic Exercise, Transfers Treatment Duration: August 11, 2018 Frequency: At least 5 of 7 days/Wk (IRF) Estimated Hrs Per Day: 1.5 hours per day Patient and/or Family Agrees t: Yes Safety Risks/Education Patient Education: Gait Training, Transfer Techniques, Safety Issues Teaching Recipient: Patient Teaching Methods: Demonstration, Discussion Response to Teaching: Verbalize Understanding, Return Demonstration, Reinforcement Needed Time/GCodes Time In: 900 Time Out: 1000 Total Billed Treatment Time: 60 Total Billed Treatment 1 visit, FA x1 unit, EX x1 unit, GT x2 units SPENCER KAUR PTA July 22, 2018 12:03
--- NOTE | 2018-07-22 14:13 | Therapy Group Daily Note ---
Therapy Daily Group Note Patient Education Topic Home Safety, Energy Cons, Exercises, ADL Exercises LE Seated Exercise, ROM, Stretching, UE Exercise Session Ratio (pt:therapist): 4:1 Goal of Session: Education on ARU Expectations, Energy Conservation Tech., Home Safety Strategies, UE/LE Strengthing Goal Met for this Session: Yes Pt Benefit of Group: Contributions to Others, F/U Use of Strategies @Home, Increased Functional Safety, Increased Functional Strength, Recognition of Peers , Socialization Other/Notes Pt perform functional mobility to OT/PT group in ARU [facility] area. Group consisted of introductions (name, place living, favorite hobby), socialization, ARU expectations/description, and UE/LE seated exercises. Pt able to introduce self then actively listened to peers. Pt acknowledged understanding of ARU by verbalizing in affirmative. Pt demo ability to complete UE/LE seated exercises without difficulty. Using light weight dice pt demo ability to throw dice and which number it lands on was the reps the patient completed as a group. patient has to instruct the other group member of the exercise. After therapy, pt lying in bed with call light/phone in reach. All needs met in room. Start Time: 13:00 Stop Time: 14:00 Total Billed Treatment GRP 60 minutes DOMINGO HALL OT July 22, 2018 14:13
[2018-07-22] MEDS ORDERED: amLODIPine 5 MG (NORVASC) TAB PO NR (17:30)
[2018-07-22 17:39] VITALS: BP 162/81
[2018-07-22] MEDS: warFARin 5 MG (COUMADIN) TAB PO SCH (17:43)
--- NOTE | 2018-07-22 17:46 | NUR ---
HAS BEEN HYPERTENSIVE TODAY. DR. DEL REAL NOTIFIED AND MEDICATED WITH ADDITIONAL NORVASC. FAMILY BROUGHT IN PATIENT'S OWN WALKER.
[2018-07-22] MEDS: ATORVASTATIN 20 MG (LIPITOR) TABLET PO SCH (20:58)
[2018-07-23] MEDS: HYDROcodone/APAP 5 MG/325 MG (LORTAB) TAB PO PRN ×2 (02:46→15:22)
[2018-07-23 05:09] VITALS: BP 151/82
[2018-07-23] MEDS: predniSONE 10 MG TAB PO SCH (06:36)
[2018-07-23] MEDS: NITROFURANTOIN 100 MG (MACROBID) CAPSULE PO SCH ×2 (06:36→17:03)
[2018-07-23] MEDS: CATHETER FLUSH 10 ML SYR IV SCH ×3 (06:36→20:49)
--- NOTE | 2018-07-23 08:22 | PM&R Progress Note ---
Subjective HPI/CC On Admission Date Seen by Provider: July 23, 2018 Time Seen by Provider: 08:30 Chief compliant: Stroke HPI: This is a 73yoWF that I have taken care of for the past week for [facility] who presented with a completed stroke with a right occipital infarct that was noted and confirmed on CT scan, did not even require an MRI and suffered a significant amount of left peripheral vision loss who presented to inpatient rehab in need of intensive therapy for fall prevention and to work on balance and compensatory mechanisms to make up for the loss of vision on the left peripherally. Barriers to returning home will be safely ambulating with assistive devices along with family support in addition we will work on Coumadin therapy since she has been subtherapeutic and super therapeutic on labs with 3.7 INR today in addition noted a creatinine bump at 1.37 so will need close follow up in inpatient rehab for blood pressure management, Coumadin level evaluation, and monitoring blood pressure management along with cardiology care. Her prior level of functioning was independent without a walker but she did suffer falls at home even prior to the stroke. 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 Subjective/Events-last exam Elevated blood pressure remains an issue even given an additional Norvasc yesterday Will inquire with cardiology regarding what their recommendation would be since such a recent stroke INR will be monitored closely per Dr. Olvera Overall patient feels much better and is working on compensating for loss of left peripheral vision since stroke Balance is an issue and that is from the stroke also but she did have falls prior to admission Denies any pain that's not controlled with her regular pain medication Conferred with RN Reviewed therapy notes Review of Systems General: Fatigue HEENT: Visual Changes Objective Exam Vital Signs Vital Signs Date Time Temp Pulse Resp B/P (MAP) Pulse Ox O2 Delivery O2 Flow Rate FiO2 07/23/18 09:20 Room Air 07/23/18 08:38 106 142/80 (100) 07/23/18 05:09 97.4 18 98 Capillary Refill : General Appearance: No Apparent Distress, WD/WN, Chronically ill, Obese HEENT: PERRL/EOMI, Normal ENT Inspection, Pharynx Normal, Moist Mucous Membranes, Other (left peripheral vision loss) Neck: Full Range of Motion, Normal Inspection, Non Tender, Supple Respiratory: Chest Non Tender, Lungs Clear, Normal Breath Sounds, No Accessory Muscle Use, No Respiratory Distress, Decreased Breath Sounds Cardiovascular: Regular Rate, Rhythm, No Edema, No Gallop, No JVD, No Murmur Gastrointestinal: Normal Bowel Sounds, No Organomegaly, No Pulsatile Mass, Non Tender, Soft Back: Normal Inspection, No CVA Tenderness, No Vertebral Tenderness Extremity: Normal Capillary Refill, Normal Inspection, Normal Range of Motion, Non Tender, No Calf Tenderness, No Pedal Edema Neurologic/Psychiatric: Alert, Oriented x3, Normal Mood/Affect, director community organization II-XII Norm as 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 FIM Transfers Therapy Code Descriptions/Definitions Functional [place] Measure: 0=Not Assessed/NA 4=Minimal Assistance 1=Total Assistance 5=Supervision or Setup 2=Maximal Assistance 6=Modified [place] 3=Moderate Assistance 7=Complete [place] Therapy Quality Codes: 6 Independent with activity with or without an assistive device 5 Patient requires set up or clean up by helper. Patient completes activity by themselves 4 Supervision or touching assist (CGA). [place] provide cues , steadying assist 3 The helper provides less than half the effort to complete the activity 2 The helper provides more than half the effort to complete the activity 1 Dependent. The helper does all the effort to complete an activity 7 Patient refused to complete or attempt activity 9 The patient did not perform the activity before the current illness or injury 88 Not attempted due to Medical conditions or safety concerns Mental Status/Objective Comprehension: 7 Expression: 7 Social Interaction: 7 Problem Solvin Memory: 7 ADL-Treatment Feedin (dentures) Eating (QC): 6 Groomin (close superivison for safety/ balance) Oral Hygiene (QC): 4 Bathin (CGA for safety/ balance ) Bathing Location: L Arm, R Arm, L Upper Leg, R Upper Leg, L Lower Leg ( including foot), R Lower Leg (including foot), Chest, Abdomen, Buttocks, Perineal Area Shower/Bathe Self (QC): 4 Upper Extremity Dressin Upper Body Dressing (QC): 4 Lower Extremity Dressin Lower Body Dressing (QC): 4 On/Off Footwear (QC): 4 Toiletin (CGA for safety/ balance while pulling up pants) Toileting Hygiene (QC): 4 Toilet/Commode Transfer: 4 Toilet Transfer (QC): 4 Shower: 4 Assessment/Plan Assessment and Plan Assess & Plan/Chief Complaint (1) CVA (cerebral vascular accident) with loss of left peripheral vision Status: Acute (2) Lupus (systemic lupus erythematosus) Status: Chronic (3) Smoker Status: Chronic (4) Hypertension Status: Chronic (5) Hyperlipidemia Status: Chronic (6) Anticoagulated on Coumadin Status: Chronic (7) Thrombosis, renal vein Status: Chronic (8) Falls at home prior to CVA Plan: Smoking cessation IRF protocols Coumadin management Cardiology is appreciated ASA Statin Fall risk Balance focus Hypertension needs more medication (1) CVA (cerebral vascular accident) (2) Abdominal wall pain (3) Hyperlipidemia (4) Hypertension (5) Lupus (systemic lupus erythematosus) (6) Anticoagulated on Coumadin (7) Thrombosis, renal vein (8) UTI (urinary tract infection) (9) DVT prophylaxis SERINA DEL REAL DO July 23, 2018 08:22
[2018-07-23] MEDS: ALLOPURINOL 100 MG (ZYLOPRIM) TAB PO SCH (08:23)
[2018-07-23] MEDS: FLUoxetine HCL 20 MG (PROzac) CAP PO SCH (08:23)
[2018-07-23] MEDS: GABAPENTIN 100 MG (NEURONTIN) CAP PO SCH ×3 (08:23→20:53)
[2018-07-23] MEDS: amLODIPine 5 MG (NORVASC) TAB PO SCH (08:23)
[2018-07-23] MEDS: ASPIRIN 81 MG CHEW (CHILDREN'S ASA) PO SCH (08:23)
[2018-07-23] MEDS: DOCUSATE SODIUM 100 MG (COLACE) CAP PO SCH (08:24)
[2018-07-23] MEDS: HYDROXYCHLOROQUINE 200 MG (PLAQUENIL) TAB PO SCH (08:27)
[2018-07-23 08:38] VITALS: BP 142/80
--- NOTE | 2018-07-23 10:23 | NUR ---
SR SOLUTIONS CONSULTANT met with patient to review team conference summary. As patient just recently admitted, had a near fall with occupational therapy, requires contact-guard assistance for all activities and is limited by balance and endurance, team has recommended patient be reevaluated at next team conference on 07/29. Patient is in agreement with this and requests SR SOLUTIONS CONSULTANT contacted sons to provide update.
--- NOTE | 2018-07-23 10:56 | Occupational Ther Daily Note ---
OT Current Status-Daily Note Subjective pt laying in bed upon OT arrival in no apparent distress. pt agreed to OT TX session with focus on increasing independence with ADL and overall balance for daily activities. pt pleasant cooperative throughout session. Mental Status/Objective Patient Orientation: Normal For Age Therapy Code Descriptions/Definitions Functional [place] Measure: 0=Not Assessed/NA 4=Minimal Assistance 1=Total Assistance 5=Supervision or Setup 2=Maximal Assistance 6=Modified [place] 3=Moderate Assistance 7=Complete [place] ADL-Treatment Therapy Code Descriptions/Definitions Functional [place] Measure: 0=Not Assessed/NA 4=Minimal Assistance 1=Total Assistance 5=Supervision or Setup 2=Maximal Assistance 6=Modified [place] 3=Moderate Assistance 7=Complete [place] Therapy Quality Codes: 6 Independent with activity with or without an assistive device 5 Patient requires set up or clean up by helper. Patient completes activity by themselves 4 Supervision or touching assist (CGA). [place] provide cues , steadying assist 3 The helper provides less than half the effort to complete the activity 2 The helper provides more than half the effort to complete the activity 1 Dependent. The helper does all the effort to complete an activity 7 Patient refused to complete or attempt activity 9 The patient did not perform the activity before the current illness or injury 88 Not attempted due to Medical conditions or safety concerns Eating (FIM): 6 (dentures) Eating (QC): 6 Grooming (FIM): 5 (stanidng at sink/ SBA for safety. balance ) Oral Hygiene (QC): 4 Bathing (FIM): 5 Bathing Location: L Arm, R Arm, L Upper Leg, R Upper Leg, L Lower Leg ( including foot), R Lower Leg (including foot), Chest, Abdomen, Buttocks, Perineal Area Shower/Bathe Self (QC): 4 Upper Body (FIM): 5 Upper Body Dressing (QC): 4 Lower Body Dressing (FIM): 5 Lower Body Dressing (QC): 4 On/Off Footwear (QC): 4 Toileting (FIM): 5 Toileting Hygiene (QC): 4 Transfers (B, C, W/C) (FIM): 4 Toilet/Commode Transfer (FIM): 4 Toilet Transfer (QC): 4 Shower Transfer(FIM): 4 CGA fro functional transfers secondary to safety /balance while using rollator. pt education on locking wheels of rollator and safety with use of rollator during daily activities. Other Treatment post ADL pt perform UE strengthening exercises by perform RUE shoulder flex/ ext / ADD/ ABD 2# weight 10X2, and R elbow flexion/ extension 2# weight 10X2, LUE shoulder flex/ ext/ ADD/ ABD 1# weight 10X2, and left elbow flexion/ extension 2 # weight 10X2 to increase UE Strength for functional transfers. noted LUE weaker compared to right UE. pt education on maintain overall balance for daily activities by performing one legged standing exercises. pt demo ability to maintain static standing balance on one leg 10X2 Ajay LE with no LOB noted while using RW for support.pt education n energy conservation techniques while performing task. pt verbalized and demo understand. Education OT Patient Education: Energy conservation, Exercise program, Home exercise program, Modified ADL techniques, Progress toward Goal/Update tx plan, Purpose of tx/functional activities, Safety issues, Transfer techniques Teaching Recipient: Patient Teaching Methods: Demonstration, Discussion Response to Teaching: Verbalize Understanding, Return Demonstration OT Short Term Goals Short Term Goals Eating(FIM): 7 Grooming(FIM): 6 Bathing(FIM): 5 Upper Body Dressing(FIM): 5 Lower Body Dressing(FIM): 5 Toileting(FIM): 5 Transfers (B,C,W/C) (FIM): 5 Toilet/Commode Transfer(FIM): 5 Tub Transfer(FIM): 5 Shower Transfer(FIM): 5 1=Demonstrate adherence to instructed precautions during ADL tasks. 2=Patient will verbalize/demonstrate understanding of assistive devices/ modifications for ADL. 3=Patient will improve strength/tolerance for activity to enable patient to perform ADL's. OT Battery Container Tester Aluminum Goals Mcfp Goals Eating (FIM): 6 Eating (QC): 6 Groomin Oral Hygiene (QC): 7 Bathing(FIM): 6 Bathing Location: L Arm, R Arm, L Upper Leg, R Upper Leg, L Lower Leg ( including foot), R Lower Leg (including foot), Chest, Abdomen, Buttocks, Perineal Area Shower/Bathe Self (QC): 6 Upper Body Dressing(FIM): 7 Upper Body Dressing (QC): 6 Lower Body Dressing(FIM): 6 Lower Body Dressing (QC): 6 On/Off Footwear (QC): 6 Toileting(FIM): 6 Toileting Hygiene (QC): 6 Transfers (B,C,W/C) (FIM): 6 Toilet/Commode Transfer(FIM): 6 Toilet/Commode Transfer (QC): 6 Tub Transfer(FIM): 6 Shower Transfer(FIM): 6 1=Demonstrate adherence to instructed precautions during ADL tasks. 2=Patient will verbalize/demonstrate understanding of assistive devices/ modifications for ADL. 3=Patient will improve strength/tolerance for activity to enable patient to perform ADL's. OT Education/Plan Problem List/Assessment pt presents with functional limitation affecting area s of ADLS and functional transfers with deficits in: decrease vision with left eye. pt reports 30% "wavy " from left side of eye. pt reports she is able to see out of eye, it is just wavy," decrease dynamic/ static standing balance, decrease activity tolerance/ endurance, decrease UE strength, impaired IADLs, and overall safety with functional activities in standing. pt would benefit from skilled OT Services to increase overall independence with ADLS/ functional transfers and to address above mention deficits. Discharge Recommendations Plan/Recommendations: Continue POC Treatment Plan/Plan of Care Treatment,Training & Education: Yes Patient would benefit from OT for education, treatment and training to promote independence in ADL's, mobility, safety and/or upper extremity function for ADL' s. Plan of Care: ADL Retraining, Caregiver Training, Concurrent Therapy, Functional Mobility, Group Exercise/Act as Ind, UE Funct Exercise/Act, UE Neuromus Re-Ed/Coord, Visual/Perceptual Retrain Treatment Duration: August 11, 2018 Frequency: At least 5 of 7 days/Wk (IRF) Estimated Hrs Per Day: 1.5 hours per day Agreement: Yes Rehab Potential: Fair Time/GCodes Start Time: 09:30 Stop Time: 11:00 Billed Treatment Time ADL 60 minutes, 4 units FA 30 minutes, 2 units DOMINGO HALL OT July 23, 2018 10:56
--- NOTE | 2018-07-23 11:08 | Physical Therapy Daily Note ---
PT Daily Note-Current Subjective Pt laying Supine in bed upon arrival. Pt agrees to PT. Pain Numeric Pain Scale: 5-Moderate Pain Comment: Pt reports generalized discomfort w/in joints. Mental Status Patient Orientation: Person, Place, Situation Transfers Therapy Code Descriptions/Definitions Functional [place] Measure: 0=Not Assessed/NA 4=Minimal Assistance 1=Total Assistance 5=Supervision or Setup 2=Maximal Assistance 6=Modified [place] 3=Moderate Assistance 7=Complete [place] Therapy Quality Codes: 6 Independent with activity with or without an assistive device 5 Patient requires set up or clean up by helper. Patient completes activity by themselves 4 Supervision or touching assist (CGA). [place] provide cues , steadying assist 3 The helper provides less than half the effort to complete the activity 2 The helper provides more than half the effort to complete the activity 1 Dependent. The helper does all the effort to complete an activity 7 Patient refused to complete or attempt activity 9 The patient did not perform the activity before the current illness or injury 88 Not attempted due to Medical conditions or safety concerns Scootin Supine to/from Sit: 5 Sit to/from Stand: 5 Sit to Stand (QC): 5 Gait Training Does the Patient Walk?: Yes Distance (FIM): 3=150 ft Distance: 175' Walk 10 feet (QC): 5 Walk 50 ft with 2 Turns(QC): 5 Walk 150 ft (QC): 5 Gait Level of Assist: 5 Gait Persons Needed: 1 Gait Assistive Device: Walker 4 Wheeled WHISKEY REGAUGER gave VC for safety w/4WW. Wheelchair Training Does the Pt Use a Wheelchair?: No Exercises NuStep Minutes: 10 NuStep Workload: 4 Treatments Pt transfers from bed to standing and ambulates to restroom. Pt uses restroom and dons pants. Pt ambulates in hallway. Pt uses NuStep for 10m at WL 4. After short RB, pt ambulates in hallway again before returning to room to rest with all needs met. Assessment Current Status: Good Progress Pt is motivated to make progress and D/C to home. PT Short Term Goals Short Term Goals Time Frame: July 28, 2018 Transfers (B,C,W/C) (FIM): 5 Gait (FIM): 5 Gait Distance Comment: 200' Gait Level of Assist: 5 Gait Assistive Device: Walker 4 Wheeled, Cane Small Base Quad PT Aircraft Hydraulic Equipment Mechanic Goals Detention Goals PT Detention Goals Time Frame: August 11, 2018 Transfers (B,C,W/C) (FIM): 6 Sit to Lying (QC): 6 Lying-Sitting on Side/Bed(QC): 6 Sit to Stand (QC): 6 Rollin Roll Left to Right (QC): 6 Chair/Jkj-ia-Nthxt Xfer(QC): 6 Car Transfer (QC): 6 Gait (FIM): 6 Distance: 300' Walk 10 feet (QC): 6 Walk 10ft-Uneven Surface(QC): 6 Walk 50ft with 2 Turns (QC): 6 Walk 150 ft (QC): 6 Gait Level of Assist: 6 Gait Assistive Device: Walker 4 Wheeled, Cane Small Base Quad Stairs (FIM): 5 # of Steps: 12 1 Step (curb) (QC): 4 4 Steps (QC): 4 12 Steps (QC): 4 Stairs Level Of Assist: 5 PT Plan Problem List Problem List: Activity Tolerance, Safety, Gait Treatment/Plan Treatment Plan: Continue Plan of Care Treatment Plan: Bed Mobility, Education, Functional Activity Ghada, Functional Strength, Group Therapy, Gait, Safety, Therapeutic Exercise, Transfers Treatment Duration: August 11, 2018 Frequency: At least 5 of 7 days/Wk (IRF) Estimated Hrs Per Day: 1.5 hours per day Patient and/or Family Agrees t: Yes Safety Risks/Education Patient Education: Gait Training, Transfer Techniques, Correct Positioning, Safety Issues Teaching Recipient: Patient Teaching Methods: Discussion Response to Teaching: Verbalize Understanding Time/GCodes Time In: 800 Time Out: 900 Total Billed Treatment Time: 60 Total Billed Treatment 1, GT (15m), FA x2 (30m) & EX (15m) G Codes Necessary: SERENITY Diaz WHISKEY REGAUGER July 23, 2018 11:08
[2018-07-23 11:58] VITALS: BP 171/84
--- NOTE | 2018-07-23 12:05 | NUR ---
BP is 171/84, P 77. Dr. Olvera notified of trending HTN. Orders to give Norvasc- 5 MG PO X1 now and increase Norvasc to 10 MG PO daily. Also... PT/INR daily. Hold Coumadin if INR is greater than 3.
[2018-07-23] MEDS ORDERED: amLODIPine 5 MG (NORVASC) TAB PO NR (12:15)
[2018-07-23 12:42] LABS: INR 2.4 (0.8-1.4); PROTHROMBIN TIME PATIENT 26.9 SEC (12.2-14.7)
--- NOTE | 2018-07-23 13:36 | Physical Therapy Daily Note ---
PT Daily Note-Current Subjective Pt sitting at EOB upon arrival. Pt agrees to PT. Mental Status Patient Orientation: Person, Place Transfers Therapy Code Descriptions/Definitions Functional [place] Measure: 0=Not Assessed/NA 4=Minimal Assistance 1=Total Assistance 5=Supervision or Setup 2=Maximal Assistance 6=Modified [place] 3=Moderate Assistance 7=Complete [place] Therapy Quality Codes: 6 Independent with activity with or without an assistive device 5 Patient requires set up or clean up by helper. Patient completes activity by themselves 4 Supervision or touching assist (CGA). [place] provide cues , steadying assist 3 The helper provides less than half the effort to complete the activity 2 The helper provides more than half the effort to complete the activity 1 Dependent. The helper does all the effort to complete an activity 7 Patient refused to complete or attempt activity 9 The patient did not perform the activity before the current illness or injury 88 Not attempted due to Medical conditions or safety concerns Scootin Sit to/from Stand: 5 Sit to Stand (QC): 5 Gait Training Does the Patient Walk?: Yes Distance (FIM): 3=150 ft Distance: 150' Walk 10 feet (QC): 5 Walk 50 ft with 2 Turns(QC): 5 Walk 150 ft (QC): 5 Gait Level of Assist: 5 Gait Persons Needed: 1 Gait Assistive Device: Walker 4 Wheeled Wheelchair Training Does the Pt Use a Wheelchair?: No Exercises Seated Therapy Exercises: Ankle pumps, Long arc quads, Hip flexion, Kicking activity, Glut set Seated Reps: 15 Treatments Pt transfers from recliner to standing then ambulates in hallway using 4WW. Pt completes Seated Ex in chair in Therapy Gym before ambulating back to room to rest at EOB. Assessment Current Status: Good Progress PT Short Term Goals Short Term Goals Time Frame: July 28, 2018 Transfers (B,C,W/C) (FIM): 5 Gait (FIM): 5 Gait Distance Comment: 200' Gait Level of Assist: 5 Gait Assistive Device: Walker 4 Wheeled, Cane Small Base Quad PT Correction Goals [place] Goals PT [place] Goals Time Frame: August 11, 2018 Transfers (B,C,W/C) (FIM): 6 Sit to Lying (QC): 6 Lying-Sitting on Side/Bed(QC): 6 Sit to Stand (QC): 6 Rollin Roll Left to Right (QC): 6 Chair/Edp-nu-Zfkhv Xfer(QC): 6 Car Transfer (QC): 6 Gait (FIM): 6 Distance: 300' Walk 10 feet (QC): 6 Walk 10ft-Uneven Surface(QC): 6 Walk 50ft with 2 Turns (QC): 6 Walk 150 ft (QC): 6 Gait Level of Assist: 6 Gait Assistive Device: Walker 4 Wheeled, Cane Small Base Quad Stairs (FIM): 5 # of Steps: 12 1 Step (curb) (QC): 4 4 Steps (QC): 4 12 Steps (QC): 4 Stairs Level Of Assist: 5 PT Plan Problem List Problem List: Activity Tolerance, Safety, Gait Treatment/Plan Treatment Plan: Continue Plan of Care Treatment Plan: Bed Mobility, Education, Functional Activity Ghada, Functional Strength, Group Therapy, Gait, Safety, Therapeutic Exercise, Transfers Treatment Duration: August 11, 2018 Frequency: At least 5 of 7 days/Wk (IRF) Estimated Hrs Per Day: 1.5 hours per day Patient and/or Family Agrees t: Yes Safety Risks/Education Patient Education: Gait Training, Transfer Techniques, Correct Positioning, Safety Issues Teaching Recipient: Patient Teaching Methods: Discussion Response to Teaching: Verbalize Understanding Time/GCodes Time In: 1300 Time Out: 1330 Total Billed Treatment Time: 30 Total Billed Treatment 1, GT (15m) & EX (15m) G Codes Necessary: SERENITY Diaz QA TECH July 23, 2018 13:36
[2018-07-23 15:58] VITALS: BP 154/78
[2018-07-23] MEDS: warFARin 5 MG (COUMADIN) TAB PO SCH (17:03)
--- NOTE | 2018-07-23 19:10 | Progress Note-Cardiology ---
Cardiology SOAP Progress Note Subjective: No cp or palp or syncope or shortness of breath at rest Objective: I&O/Vital Signs 07/23/18 07/23/18 07/23/18 07/23/18 08:38 09:20 11:58 15:58 Temp 98.3 97.4 Pulse 106 77 89 Resp 18 16 B/P (MAP) 142/80 (100) 171/84 (113) 154/78 (103) Pulse Ox 96 96 O2 Delivery Room Air Room Air Room Air 07/23/18 00:00 Intake Total 1000 ml Balance 1000 ml Weight (Pounds): 167 Weight (Ounces): 3.0 Weight (Calculated Kilograms): 75.469880 Constitutional: AAO x 3, well-developed, well-nourished Respiratory: chest expansion is symmetric, chest is bilaterally symmetric, lungs clear to auscultation, other (prolonged expiratory phase) Cardiovascular: regular rate-rhythm; No JVD; S1 and S2 Gastrointestional: No tender; soft, round, audible bowel sounds Extremities: other ((RLE visibly larger than left (reports chronic)), no lower extremity edema bilateral Neurologic/Psychiatric: other ((L-sided visual field cut in both eyes)), grossly intact, power is 5/5 both on sides Skin: No rash, No ulcerations Results/Procedures: Labs Laboratory Tests 07/23/18 12:22: Prothrombin Time 26.9H, INR Comment 2.4H A/P: Assessment: Hypertension, not well controlled CVA with L homonymous hemianopsia - small to moderate-sized area of acute/ subacute infarct involving the right occipital lobe. There is no evidence of intra-cranial hemorrhage, brain herniation, or midline shift on CT of the head on 07-15-18. Management of CVA is by Dr Mosquera Carotid artery disease - Per u/s of 07-15-18, there is mod bilat carotid arterial plaque, worse (50-70% stenosis) on the right UTI - management by Dr Mosquera Cardiac cath of July [address] Olvera showed multi-vessel dz - 60-70% mid-LAD involving origin of relatively sm caliber diag branch. 50-60% L Cx. RCA - large and dominant with 50% stenosis mid-vessel and 60% distal. LVEF 60%. Referred to Dr. Patel of cardiothoracic services at [facility] - medical tx advised at that time - has had no f/u Echo of 07/16/18: LVEF 45-50%, mod conc LVH, grade 1 caldwell dysfxn, PASP 25-30 mmHg H/O cervical cancer for which she has undergone chemo (last tx 12 years ago) H/O sleep apnea for which she is non-compliant with CPAP tx HLD - statin tx followed by her PCP H/O sinus bradycardia and V-tach during ED visit in November 2017 - transferred to [facility] at that time Chronic diarrhea Reports chronic lymphedema to right leg Depression Lupus Gout Family h/o CAD (son has had coronary stenting; mother has had CVA) Plan: Increase amlodipine Monitor labs, including INR DIMITRI OLVERA MD FACP FAC CCDS July 23, 2018 19:10
[2018-07-23] MEDS: ATORVASTATIN 20 MG (LIPITOR) TABLET PO SCH (20:53)
[2018-07-24] MEDS: HYDROcodone/APAP 5 MG/325 MG (LORTAB) TAB PO PRN (03:04)
[2018-07-24] MEDS: predniSONE 10 MG TAB PO SCH (05:54)
[2018-07-24] MEDS: NITROFURANTOIN 100 MG (MACROBID) CAPSULE PO SCH ×2 (05:54→17:19)
[2018-07-24] MEDS: CATHETER FLUSH 10 ML SYR IV SCH ×3 (05:55→20:22)
[2018-07-24 06:12] VITALS: BP 146/78
[2018-07-24 06:33] LABS: INR 2.6 (0.8-1.4); PROTHROMBIN TIME PATIENT 28.9 SEC (12.2-14.7)
[2018-07-24] MEDS: ALLOPURINOL 100 MG (ZYLOPRIM) TAB PO SCH (08:22)
[2018-07-24] MEDS: amLODIPine 5 MG (NORVASC) TAB PO SCH (08:22)
[2018-07-24] MEDS: ASPIRIN 81 MG CHEW (CHILDREN'S ASA) PO SCH (08:22)
[2018-07-24] MEDS: FLUoxetine HCL 20 MG (PROzac) CAP PO SCH (08:22)
[2018-07-24] MEDS: HYDROXYCHLOROQUINE 200 MG (PLAQUENIL) TAB PO SCH (08:22)
[2018-07-24] MEDS: GABAPENTIN 100 MG (NEURONTIN) CAP PO SCH ×3 (08:22→20:21)
--- NOTE | 2018-07-24 08:43 | PM&R Progress Note ---
Subjective HPI/CC On Admission Date Seen by Provider: July 24, 2018 Time Seen by Provider: 08:30 Chief compliant: Stroke HPI: This is a 73yoWF that I have taken care of for the past week for [facility] who presented with a completed stroke with a right occipital infarct that was noted and confirmed on CT scan, did not even require an MRI and suffered a significant amount of left peripheral vision loss who presented to inpatient rehab in need of intensive therapy for fall prevention and to work on balance and compensatory mechanisms to make up for the loss of vision on the left peripherally. Barriers to returning home will be safely ambulating with assistive devices along with family support in addition we will work on Coumadin therapy since she has been subtherapeutic and super therapeutic on labs with 3.7 INR today in addition noted a creatinine bump at 1.37 so will need close follow up in inpatient rehab for blood pressure management, Coumadin level evaluation, and monitoring blood pressure management along with cardiology care. Her prior level of functioning was independent without a walker but she did suffer falls at home even prior to the stroke. 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 Subjective/Events-last exam Elevated blood pressure remains an issue even given an additional Norvasc Appreciate Dr Olvera's help INR 2.6 today Overall patient feels much better and is working on compensating for loss of left peripheral vision since stroke Balance is an issue and that is from the stroke also but she did have falls prior to admission and she is aggressively working on that Denies any pain except a headache earlier today with nausea of which she gets periodically Conferred with RN Reviewed therapy notes Review of Systems General: Fatigue HEENT: Visual Changes Objective Exam Vital Signs Vital Signs Date Time Temp Pulse Resp B/P (MAP) Pulse Ox O2 Delivery O2 Flow Rate FiO2 07/24/18 06:12 97.4 74 20 146/78 (100) 97 Room Air Capillary Refill : General Appearance: No Apparent Distress, WD/WN, Chronically ill, Obese HEENT: PERRL/EOMI, Normal ENT Inspection, Pharynx Normal, Moist Mucous Membranes, Other (left peripheral vision loss) Neck: Full Range of Motion, Normal Inspection, Non Tender, Supple Respiratory: Chest Non Tender, Lungs Clear, Normal Breath Sounds, No Accessory Muscle Use, No Respiratory Distress, Decreased Breath Sounds Cardiovascular: Regular Rate, Rhythm, No Edema, No Gallop, No JVD, No Murmur Gastrointestinal: Normal Bowel Sounds, No Organomegaly, No Pulsatile Mass, Non Tender, Soft Back: Normal Inspection, No CVA Tenderness, No Vertebral Tenderness Extremity: Normal Capillary Refill, Normal Inspection, Normal Range of Motion, Non Tender, No Calf Tenderness, No Pedal Edema Neurologic/Psychiatric: Alert, Oriented x3, Normal 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 FIM Transfers Therapy Code Descriptions/Definitions Functional [place] Measure: 0=Not Assessed/NA 4=Minimal Assistance 1=Total Assistance 5=Supervision or Setup 2=Maximal Assistance 6=Modified [place] 3=Moderate Assistance 7=Complete [place] Therapy Quality Codes: 6 Independent with activity with or without an assistive device 5 Patient requires set up or clean up by helper. Patient completes activity by themselves 4 Supervision or touching assist (CGA). [place] provide cues , steadying assist 3 The helper provides less than half the effort to complete the activity 2 The helper provides more than half the effort to complete the activity 1 Dependent. The helper does all the effort to complete an activity 7 Patient refused to complete or attempt activity 9 The patient did not perform the activity before the current illness or injury 88 Not attempted due to Medical conditions or safety concerns Mental Status/Objective Comprehension: 7 Expression: 7 Social Interaction: 7 Problem Solvin Memory: 7 ADL-Treatment Feedin (dentures) Eating (QC): 6 Groomin (stanidng at sink/ SBA for safety. balance ) Oral Hygiene (QC): 4 Bathin Bathing Location: L Arm, R Arm, L Upper Leg, R Upper Leg, L Lower Leg ( including foot), R Lower Leg (including foot), Chest, Abdomen, Buttocks, Perineal Area Shower/Bathe Self (QC): 4 Upper Extremity Dressin Upper Body Dressing (QC): 4 Lower Extremity Dressin Lower Body Dressing (QC): 4 On/Off Footwear (QC): 4 Toiletin Toileting Hygiene (QC): 4 Toilet/Commode Transfer: 4 Toilet Transfer (QC): 4 Shower: 4 Assessment/Plan Assessment and Plan Assess & Plan/Chief Complaint (1) CVA (cerebral vascular accident) with loss of left peripheral vision Status: Acute (2) Lupus (systemic lupus erythematosus) Status: Chronic (3) Smoker Status: Chronic (4) Hypertension Status: Chronic (5) Hyperlipidemia Status: Chronic (6) Anticoagulated on Coumadin Status: Chronic (7) Thrombosis, renal vein Status: Chronic (8) Falls at home prior to CVA Plan: Smoking cessation counseled every day IRF protocols to be maintained Coumadin management Cardiology is appreciated ASA Statin Fall risk Balance focus Hypertension needs more medication (1) CVA (cerebral vascular accident) (2) Abdominal wall pain (3) Hyperlipidemia (4) Hypertension (5) Lupus (systemic lupus erythematosus) (6) Anticoagulated on Coumadin (7) Thrombosis, renal vein (8) UTI (urinary tract infection) (9) DVT prophylaxis SERINA DEL REAL DO July 24, 2018 08:43
--- NOTE | 2018-07-24 09:56 | Progress Note-Cardiology ---
Cardiology SOAP Progress Note Subjective: Up with PT. She feels her breathing is good this morning. No c/o CP or palpitations. No c/o syncope or near syncope. Continues to report no change in peripheral vision. Objective: I&O/Vital Signs 07/24/18 07/24/18 06:12 09:00 Temp 97.4 Pulse 74 Resp 20 B/P (MAP) 146/78 (100) Pulse Ox 97 O2 Delivery Room Air Room Air 07/23/18 23:59 Intake Total 684 ml Balance 684 ml Weight (Pounds): 167 Weight (Ounces): 3.0 Weight (Calculated Kilograms): 75.657729 Constitutional: AAO x 3, well-developed, well-nourished Respiratory: chest expansion is symmetric, chest is bilaterally symmetric, lungs clear to auscultation, other (prolonged expiratory phase) Cardiovascular: regular rate-rhythm; No JVD; S1 and S2 Gastrointestional: No tender; soft, round, audible bowel sounds Extremities: other ((RLE visibly larger than left (reports chronic)), no lower extremity edema bilateral Neurologic/Psychiatric: other ((L-sided visual field cut in both eyes)), grossly intact, power is 5/5 both on sides Skin: No rash, No ulcerations Results/Procedures: Labs Laboratory Tests 07/24/18 05:55: Prothrombin Time 28.9H, INR Comment 2.6H A/P: Assessment: Hypertension, not well controlled CVA with L homonymous hemianopsia - small to moderate-sized area of acute/ subacute infarct involving the right occipital lobe. There is no evidence of intra-cranial hemorrhage, brain herniation, or midline shift on CT of the head on 07-15-18. Management of CVA is by Dr Mosquera Carotid artery disease - Per u/s of 07-15-18, there is mod bilat carotid arterial plaque, worse (50-70% stenosis) on the right UTI - management by Dr Mosquera Cardiac cath of July [address] Olvera showed multi-vessel dz - 60-70% mid-LAD involving origin of relatively sm caliber diag branch. 50-60% L Cx. RCA - large and dominant with 50% stenosis mid-vessel and 60% distal. LVEF 60%. Referred to Dr. Patel of cardiothoracic services at [facility] - medical tx advised at that time - has had no f/u Echo of 07/16/18: LVEF 45-50%, mod conc LVH, grade 1 caldwell dysfxn, PASP 25-30 mmHg H/O cervical cancer for which she has undergone chemo (last tx 12 years ago) H/O sleep apnea for which she is non-compliant with CPAP tx HLD - statin tx followed by her PCP H/O sinus bradycardia and V-tach during ED visit in November 2017 - transferred to [facility] at that time Chronic diarrhea Reports chronic lymphedema to right leg Depression Lupus Gout Family h/o CAD (son has had coronary stenting; mother has had CVA) Plan: Continue current medication regimen Monitor labs, including INR Physician Assessment Physician Assessment No cp or palp or syncope or shortness of breath No acute distress Lungs: good air entry, diminished at the bases Cor: reg Ext: no c/c/e A&R * As documented in our note above that I updated (italics) and as noted below * Monitor labs * Dr Solitario covering our service over the weekend TATY ENGLE July 24, 2018 09:56 DIMITRI OLVERA MD FACP FAC CCDS July 24, 2018 14:21
--- NOTE | 2018-07-24 10:44 | Occupational Ther Daily Note ---
OT Current Status-Daily Note Subjective pt present in TX gym upon OT Arrival. pt agreed to OT TX session with focus on increasing activity tolerance, UE strength, ans standing tolerance for daily activities. Mental Status/Objective Patient Orientation: Normal For Age Therapy Code Descriptions/Definitions Functional [place] Measure: 0=Not Assessed/NA 4=Minimal Assistance 1=Total Assistance 5=Supervision or Setup 2=Maximal Assistance 6=Modified [place] 3=Moderate Assistance 7=Complete [place] ADL-Treatment Therapy Code Descriptions/Definitions Functional [place] Measure: 0=Not Assessed/NA 4=Minimal Assistance 1=Total Assistance 5=Supervision or Setup 2=Maximal Assistance 6=Modified [place] 3=Moderate Assistance 7=Complete [place] Therapy Quality Codes: 6 Independent with activity with or without an assistive device 5 Patient requires set up or clean up by helper. Patient completes activity by themselves 4 Supervision or touching assist (CGA). [place] provide cues , steadying assist 3 The helper provides less than half the effort to complete the activity 2 The helper provides more than half the effort to complete the activity 1 Dependent. The helper does all the effort to complete an activity 7 Patient refused to complete or attempt activity 9 The patient did not perform the activity before the current illness or injury 88 Not attempted due to Medical conditions or safety concerns Other Treatment pt demo ability to perform functional mobility 50 ft with CGA fro safety/ balance and perform ability to maintain static standing balance for 4 minutes 55 seconds then required 4 minutes seated rest break secondary to limited standing tolerance. pt then stood again for 2 minutes 36 seconds. pt education on regaining energy proper to standing again to increase standing tolerance and not not get fatigue as fast. pt verbalized understanding. pt then ambulated to TX gym 50 ft with CGA using RW. pt perform UBE 5 minutes X3 with MIN-MOD resistance. pt demo SOB with activity required increase rest breaks. pt then given ROM ring with 2# weight placed on RUE and 1# wrist weight on LUE pt demo ability to move ROM R<> L X2 with increasing timing ans rest breaks secondary to limited activity tolerance. pt ambulated back to room with CGA using RW. 75 ft. once at door to room pt used quad cane and required MIN A to maintain balance/ safety for 15 ft. pt laying supine in bed post OT Session. call light, tray , and ohone within reach. all needs met. Education OT Patient Education: Energy conservation, Progress toward Goal/Update tx plan , Purpose of tx/functional activities, Transfer techniques Teaching Recipient: Patient Teaching Methods: Demonstration, Discussion Response to Teaching: Verbalize Understanding, Return Demonstration OT Short Term Goals Short Term Goals Eating(FIM): 7 Grooming(FIM): 6 Bathing(FIM): 5 Upper Body Dressing(FIM): 5 Lower Body Dressing(FIM): 5 Toileting(FIM): 5 Transfers (B,C,W/C) (FIM): 5 Toilet/Commode Transfer(FIM): 5 Tub Transfer(FIM): 5 Shower Transfer(FIM): 5 1=Demonstrate adherence to instructed precautions during ADL tasks. 2=Patient will verbalize/demonstrate understanding of assistive devices/ modifications for ADL. 3=Patient will improve strength/tolerance for activity to enable patient to perform ADL's. OT Fpc Goals Fpc Goals Eating (FIM): 6 Eating (QC): 6 Groomin Oral Hygiene (QC): 7 Bathing(FIM): 6 Bathing Location: L Arm, R Arm, L Upper Leg, R Upper Leg, L Lower Leg ( including foot), R Lower Leg (including foot), Chest, Abdomen, Buttocks, Perineal Area Shower/Bathe Self (QC): 6 Upper Body Dressing(FIM): 7 Upper Body Dressing (QC): 6 Lower Body Dressing(FIM): 6 Lower Body Dressing (QC): 6 On/Off Footwear (QC): 6 Toileting(FIM): 6 Toileting Hygiene (QC): 6 Transfers (B,C,W/C) (FIM): 6 Toilet/Commode Transfer(FIM): 6 Toilet/Commode Transfer (QC): 6 Tub Transfer(FIM): 6 Shower Transfer(FIM): 6 1=Demonstrate adherence to instructed precautions during ADL tasks. 2=Patient will verbalize/demonstrate understanding of assistive devices/ modifications for ADL. 3=Patient will improve strength/tolerance for activity to enable patient to perform ADL's. OT Education/Plan Problem List/Assessment pt presents with functional limitation affecting area s of ADLS and functional transfers with deficits in: decrease vision with left eye. pt reports 20% "wavy " from left side of eye. pt reports she is able to see out of eye, it is just wavy," decrease dynamic/ static standing balance, decrease activity tolerance/ endurance, decrease UE strength, impaired IADLs, and overall safety with functional activities in standing. pt would benefit from skilled OT Services to increase overall independence with ADLS/ functional transfers and to address above mention deficits. Discharge Recommendations Plan/Recommendations: Continue POC Treatment Plan/Plan of Care Treatment,Training & Education: Yes Patient would benefit from OT for education, treatment and training to promote independence in ADL's, mobility, safety and/or upper extremity function for ADL' s. Plan of Care: ADL Retraining, Caregiver Training, Concurrent Therapy, Functional Mobility, Group Exercise/Act as Ind, UE Funct Exercise/Act, UE Neuromus Re-Ed/Coord, Visual/Perceptual Retrain Treatment Duration: August 11, 2018 Frequency: At least 5 of 7 days/Wk (IRF) Estimated Hrs Per Day: 1.5 hours per day Agreement: Yes Rehab Potential: Fair Time/GCodes Start Time: 09:30 Stop Time: 11:00 Billed Treatment Time FA 90 minutes, 6 units DOMINGO HALL OT July 24, 2018 10:44
--- NOTE | 2018-07-24 11:09 | Physical Therapy Daily Note ---
PT Daily Note-Current Subjective Pt laying Supine in bed upon arrival. Pt agrees to PT but reporting just received meds for headache & nausea. Pain Numeric Pain Scale: 2 Location: Anterior Location Body Site: Head Pain Description: Ache Mental Status Patient Orientation: Person, Place, Situation Transfers Therapy Code Descriptions/Definitions Functional [place] Measure: 0=Not Assessed/NA 4=Minimal Assistance 1=Total Assistance 5=Supervision or Setup 2=Maximal Assistance 6=Modified [place] 3=Moderate Assistance 7=Complete [place] Therapy Quality Codes: 6 Independent with activity with or without an assistive device 5 Patient requires set up or clean up by helper. Patient completes activity by themselves 4 Supervision or touching assist (CGA). [place] provide cues , steadying assist 3 The helper provides less than half the effort to complete the activity 2 The helper provides more than half the effort to complete the activity 1 Dependent. The helper does all the effort to complete an activity 7 Patient refused to complete or attempt activity 9 The patient did not perform the activity before the current illness or injury 88 Not attempted due to Medical conditions or safety concerns Scootin Supine to/from Sit: 5 Sit to/from Stand: 5 Sit to Stand (QC): 5 Weight Bearing Full Weight Bearing Full Weight Bearing Gait Training Does the Patient Walk?: Yes Distance (FIM): 3=150 ft Distance: 150' Walk 10 feet (QC): 4 Walk 50 ft with 2 Turns(QC): 4 Walk 150 ft (QC): 4 Gait Level of Assist: 4 Gait Persons Needed: 1 Gait Assistive Device: Cane Large Base Quad Pt reports wanting to transition to LBQC that she will use at home. This is practiced with pt at [facility]Min A. Pt needs VC to ensure safety with use. Wheelchair Training Does the Pt Use a Wheelchair?: No Exercises Seated Therapy Exercises: Ankle pumps, Long arc quads, Hip flexion, Kicking activity, Glut set Seated Reps: 15 Standing: Hamstring curls, Heel/toe raises, 3 way Ex=Flex, Abd, Ext, Maze, Mini squats, Sit to Stand Standing Reps: 15 NuStep Minutes: 15 NuStep Workload: 5 Treatments Pt transfers from bed to standing using LBQC. Pt uses restroom then ambulates in hallway to Therapy Gym. Pt uses NuStep for 15m at WL 5, followed by Seated Ex then Standing Ex at //bars. Pt takes RB as needed. Pt seen by OT immediately following PT tx. Pt has all needs met. Assessment Current Status: Good Progress Pt tolerates tx well. Pt needs occasional RB but recovers quickly. Pt is not compliant with all safety during tx and needs VC to remind. PT Short Term Goals Short Term Goals Time Frame: July 28, 2018 Transfers (B,C,W/C) (FIM): 5 Gait (FIM): 5 Gait Distance Comment: 200' Gait Level of Assist: 5 Gait Assistive Device: Walker 4 Wheeled, Cane Small Base Quad PT Steel Worker Goals Steel Worker Goals PT Steel Worker Goals Time Frame: August 11, 2018 Transfers (B,C,W/C) (FIM): 6 Sit to Lying (QC): 6 Lying-Sitting on Side/Bed(QC): 6 Sit to Stand (QC): 6 Rollin Roll Left to Right (QC): 6 Chair/Exs-tw-Qvyrg Xfer(QC): 6 Car Transfer (QC): 6 Gait (FIM): 6 Distance: 300' Walk 10 feet (QC): 6 Walk 10ft-Uneven Surface(QC): 6 Walk 50ft with 2 Turns (QC): 6 Walk 150 ft (QC): 6 Gait Level of Assist: 6 Gait Assistive Device: Walker 4 Wheeled, Cane Small Base Quad Stairs (FIM): 5 # of Steps: 12 1 Step (curb) (QC): 4 4 Steps (QC): 4 12 Steps (QC): 4 Stairs Level Of Assist: 5 PT Plan Problem List Problem List: Activity Tolerance, Functional Strength, Safety, Gait Treatment/Plan Treatment Plan: Continue Plan of Care Treatment Plan: Bed Mobility, Education, Functional Activity Ghada, Functional Strength, Group Therapy, Gait, Safety, Therapeutic Exercise, Transfers Treatment Duration: August 11, 2018 Frequency: At least 5 of 7 days/Wk (IRF) Estimated Hrs Per Day: 1.5 hours per day Patient and/or Family Agrees t: Yes Safety Risks/Education Patient Education: Gait Training, Transfer Techniques, Correct Positioning, Safety Issues Teaching Recipient: Patient Teaching Methods: Discussion Response to Teaching: Verbalize Understanding, Reinforcement Needed Time/GCodes Time In: 800 Time Out: 930 Total Billed Treatment Time: 90 Total Billed Treatment 1, GT (20m), EX x3 (45m) & FA x2 (25m) G Codes Necessary: No TREIBER,SERENITY HAND TACKER July 24, 2018 11:09
--- NOTE | 2018-07-24 15:39 | NUR ---
Luanne is a 73 yo old female present on the ARU unit due to a CVA with left ethel. Luanne is alert and orientated X4 and denies pain at this time. Patient currently has an intact midline present in the LUE that has great blood return and flow. Patient also has scattered bruising present. Patient is currently taking 5mg of Coumadin, current INR today was 2.6. No further issues noted with patient. This nurse will continue to monitor. Addendum: 07/24/18 at 1700 by ZORAIDA HASSAN RN Luanne has been experiencing ongoing HTN issues and is currently being followed by Dr. Olvera. Patient's current BP is 176/82. Dr. Olvera was notified and ordered Cadura 1mg now and qHS moving forward.
[2018-07-24 17:01] VITALS: BP 167/77
[2018-07-24] MEDS: doxAzosin 1 MG (CARDURA) TAB PO SCH ×2 (17:18→17:20)
[2018-07-24] MEDS: warFARin 5 MG (COUMADIN) TAB PO SCH (17:19)
[2018-07-24 18:24] VITALS: BP 124/81
[2018-07-24] MEDS: ATORVASTATIN 20 MG (LIPITOR) TABLET PO SCH (20:21)
[2018-07-24] MEDS ORDERED: doxAzosin 4 MG (CARDURA) TAB PO SCH (21:00)
[2018-07-25 05:02] VITALS: BP 164/71
[2018-07-25] MEDS: HYDROcodone/APAP 5 MG/325 MG (LORTAB) TAB PO PRN ×2 (05:18→20:46)
[2018-07-25] MEDS: CATHETER FLUSH 10 ML SYR IV SCH ×3 (06:17→20:46)
[2018-07-25] MEDS: NITROFURANTOIN 100 MG (MACROBID) CAPSULE PO SCH ×2 (06:17→17:02)
[2018-07-25] MEDS: predniSONE 10 MG TAB PO SCH (06:17)
[2018-07-25 07:27] LABS: INR 3.4 (0.8-1.4); PROTHROMBIN TIME PATIENT 35.6 SEC (12.2-14.7)
[2018-07-25] MEDS: warFARin 5 MG (COUMADIN) TAB PO SCH (07:42)
[2018-07-25] MEDS: ALLOPURINOL 100 MG (ZYLOPRIM) TAB PO SCH (08:52)
[2018-07-25] MEDS: FLUoxetine HCL 20 MG (PROzac) CAP PO SCH (08:52)
[2018-07-25] MEDS: GABAPENTIN 100 MG (NEURONTIN) CAP PO SCH ×3 (08:52→20:46)
[2018-07-25] MEDS: HYDROXYCHLOROQUINE 200 MG (PLAQUENIL) TAB PO SCH (08:52)
[2018-07-25] MEDS: ASPIRIN 81 MG CHEW (CHILDREN'S ASA) PO SCH (08:52)
[2018-07-25] MEDS: amLODIPine 5 MG (NORVASC) TAB PO SCH (08:52)
[2018-07-25 08:55] VITALS: BP 128/79
[2018-07-25] MEDS: DIPHENOXYLATE/ATROPINE 2.5MG/0.025MG (LOMOTIL) TAB PO PRN (10:43)
--- NOTE | 2018-07-25 11:00 | NUR ---
Dr. Mosquera here to see patient. Informed of left great toe pain.
--- NOTE | 2018-07-25 11:41 | Physical Therapy Daily Note ---
PT Daily Note-Current Subjective Agrees to PT Reports her vision left eye is still blurred but improved. Transfers Therapy Code Descriptions/Definitions Functional [place] Measure: 0=Not Assessed/NA 4=Minimal Assistance 1=Total Assistance 5=Supervision or Setup 2=Maximal Assistance 6=Modified [place] 3=Moderate Assistance 7=Complete [place] Therapy Quality Codes: 6 Independent with activity with or without an assistive device 5 Patient requires set up or clean up by helper. Patient completes activity by themselves 4 Supervision or touching assist (CGA). [place] provide cues , steadying assist 3 The helper provides less than half the effort to complete the activity 2 The helper provides more than half the effort to complete the activity 1 Dependent. The helper does all the effort to complete an activity 7 Patient refused to complete or attempt activity 9 The patient did not perform the activity before the current illness or injury 88 Not attempted due to Medical conditions or safety concerns Transfers (B, C, W/C) (FIM): 5 Supine to/from Sit: 5 Sit to/from Stand: 5 SBA with transfers for safety; pt able to complete without cues. Weight Bearing Full Weight Bearing Full Weight Bearing Gait Training Does the Patient Walk?: Yes Gait (FIM): 5 Distance (FIM): 3=150 ft Gait Assistive Device: FWW Pt ambulated 200 ft x 2 with FWW with SBA for safety; no tactile assist needed. Stair Training Stair Training: Handrails/: 2 handrails up/down 4 steps with SBA with 1 step at a time. Assessment Current Status: Good Progress Progressing with functional mobility and safety. PT Short Term Goals Short Term Goals Time Frame: July 28, 2018 Transfers (B,C,W/C) (FIM): 5 (met) Gait (FIM): 5 (met) Gait Distance Comment: 200' Gait Level of Assist: 5 Gait Assistive Device: Walker 4 Wheeled, Cane Small Base Quad PT Handicraft Or Hobby Shop Manager Goals Handicraft Or Hobby Shop Manager Goals PT Correction Goals Time Frame: August 11, 2018 Transfers (B,C,W/C) (FIM): 6 Sit to Lying (QC): 6 Lying-Sitting on Side/Bed(QC): 6 Sit to Stand (QC): 6 Rollin Roll Left to Right (QC): 6 Chair/Wil-ps-[place] Xfer(QC): 6 Car Transfer (QC): 6 Gait (FIM): 6 Distance: 300' Walk 10 feet (QC): 6 Walk 10ft-Uneven Surface(QC): 6 Walk 50ft with 2 Turns (QC): 6 Walk 150 ft (QC): 6 Gait Level of Assist: 6 Gait Assistive Device: Walker 4 Wheeled, Cane Small Base Quad Stairs (FIM): 5 # of Steps: 12 1 Step (curb) (QC): 4 4 Steps (QC): 4 12 Steps (QC): 4 Stairs Level Of Assist: 5 PT Plan Problem List Problem List: Activity Tolerance, Functional Strength, Safety, Balance, Gait, Transfer, Bed Mobility Treatment/Plan Treatment Plan: Continue Plan of Care Treatment Plan: Bed Mobility, Education, Functional Activity Ghada, Functional Strength, Group Therapy, Gait, Safety, Therapeutic Exercise, Transfers Treatment Duration: August 11, 2018 Frequency: At least 5 of 7 days/Wk (IRF) Estimated Hrs Per Day: 1.5 hours per day Patient and/or Family Agrees t: Yes Safety Risks/Education Patient Education: Safety Issues Teaching Recipient: Patient Teaching Methods: Discussion Response to Teaching: Verbalize Understanding Time/GCodes Time In: 1115 Time Out: 1132 Total Billed Treatment Time: 17 Total Billed Treatment visit GT 17 MARIO SAM PT July 25, 2018 11:40
--- NOTE | 2018-07-25 12:37 | PM&R Progress Note ---
Subjective HPI/CC On Admission Date Seen by Provider: July 25, 2018 Time Seen by Provider: 11:00 Chief compliant: Stroke HPI: This is a 73yoWF that I have taken care of for the past week for CHC who presented with a completed stroke with a right occipital infarct that was noted and confirmed on CT scan, did not even require an MRI and suffered a significant amount of left peripheral vision loss who presented to inpatient rehab in need of intensive therapy for fall prevention and to work on balance and compensatory mechanisms to make up for the loss of vision on the left peripherally. Barriers to returning home will be safely ambulating with assistive devices along with family support in addition we will work on Coumadin therapy since she has been subtherapeutic and super therapeutic on labs with 3.7 INR today in addition noted a creatinine bump at 1.37 so will need close follow up in inpatient rehab for blood pressure management, Coumadin level evaluation, and monitoring blood pressure management along with cardiology care. Her prior level of functioning was independent without a walker but she did suffer falls at home even prior to the stroke. 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 Subjective/Events-last exam Elevated blood pressure still requiring multiple mental changes Appreciate Dr Olvera's help INR is very variable on an ongoing basis Overall patient feels much better and is working on compensating for loss of left peripheral vision since stroke Balance is an issue and therapy really focusing on that Denies any pain except for chronic issues Conferred with RN Reviewed therapy notes Chronic diarrhea continues Left great toe is reportedly causing pain and she has had gout but there is no evidence of any acute issues currently Review of Systems General: Fatigue Neurological: Weakness, Numbness, Incoordination Objective Exam Vital Signs Vital Signs Date Time Temp Pulse Resp B/P (MAP) Pulse Ox O2 Delivery O2 Flow Rate FiO2 07/26/18 09:44 Room Air 07/26/18 08:37 90 121/60 (80) 07/26/18 05:00 97.2 16 97 Capillary Refill : General Appearance: No Apparent Distress, WD/WN, Chronically ill, Obese HEENT: PERRL/EOMI, Normal ENT Inspection, Pharynx Normal, Moist Mucous Membranes, Other (left peripheral vision loss) Neck: Full Range of Motion, Normal Inspection, Non Tender, Supple Respiratory: Chest Non Tender, Lungs Clear, Normal Breath Sounds, No Accessory Muscle Use, No Respiratory Distress, Decreased Breath Sounds Cardiovascular: Regular Rate, Rhythm, No Edema, No Gallop, No JVD, No Murmur Gastrointestinal: Normal Bowel Sounds, No Organomegaly, No Pulsatile Mass, Non Tender, Soft Back: Normal Inspection, No CVA Tenderness, No Vertebral Tenderness Extremity: Normal Capillary Refill, Normal Inspection, Normal Range of Motion, Non Tender, No Calf Tenderness, No Pedal Edema Neurologic/Psychiatric: Alert, Oriented x3, Normal Mood/Affect, applications chemist II-XII Norm as 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 FIM Transfers Therapy Code Descriptions/Definitions Functional [place] Measure: 0=Not Assessed/NA 4=Minimal Assistance 1=Total Assistance 5=Supervision or Setup 2=Maximal Assistance 6=Modified [place] 3=Moderate Assistance 7=Complete [place] Therapy Quality Codes: 6 Independent with activity with or without an assistive device 5 Patient requires set up or clean up by helper. Patient completes activity by themselves 4 Supervision or touching assist (CGA). [place] provide cues , steadying assist 3 The helper provides less than half the effort to complete the activity 2 The helper provides more than half the effort to complete the activity 1 Dependent. The helper does all the effort to complete an activity 7 Patient refused to complete or attempt activity 9 The patient did not perform the activity before the current illness or injury 88 Not attempted due to Medical conditions or safety concerns Mental Status/Objective Comprehension: 7 Expression: 7 Social Interaction: 7 Problem Solvin Memory: 7 ADL-Treatment Feedin (dentures) Eating (QC): 6 Groomin (stanidng at sink/ SBA for safety. balance ) Oral Hygiene (QC): 4 Bathin Bathing Location: L Arm, R Arm, L Upper Leg, R Upper Leg, L Lower Leg ( including foot), R Lower Leg (including foot), Chest, Abdomen, Buttocks, Perineal Area Shower/Bathe Self (QC): 4 Upper Extremity Dressin Upper Body Dressing (QC): 4 Lower Extremity Dressin Lower Body Dressing (QC): 4 On/Off Footwear (QC): 4 Toiletin Toileting Hygiene (QC): 4 Toilet/Commode Transfer: 4 Toilet Transfer (QC): 4 Shower: 4 Assessment/Plan Assessment and Plan Assess & Plan/Chief Complaint (1) CVA (cerebral vascular accident) with loss of left peripheral vision Status: Acute (2) Lupus (systemic lupus erythematosus) Status: Chronic (3) Smoker Status: Chronic (4) Hypertension Status: Chronic (5) Hyperlipidemia Status: Chronic (6) Anticoagulated on Coumadin Status: Chronic (7) Thrombosis, renal vein Status: Chronic (8) Falls at home prior to CVA Plan: Smoking cessation counseled every day IRF protocols to be maintained Coumadin management Cardiology is appreciated ASA Statin Fall risk Balance focus Hypertension needs more medication Monitor INR closely Monitor left great toe pain (1) CVA (cerebral vascular accident) (2) Abdominal wall pain (3) Hyperlipidemia (4) Hypertension (5) Lupus (systemic lupus erythematosus) (6) Anticoagulated on Coumadin (7) Thrombosis, renal vein (8) UTI (urinary tract infection) (9) DVT prophylaxis SERINA DEL REAL DO July 25, 2018 12:37
[2018-07-25] MEDS: NICOTINE 7 MG (NICODERM) PATCH TD SCH (12:43)
[2018-07-25 17:01] VITALS: BP 153/71
[2018-07-25] MEDS: doxAzosin 1 MG (CARDURA) TAB PO SCH (20:46)
[2018-07-25] MEDS: ATORVASTATIN 20 MG (LIPITOR) TABLET PO SCH (20:46)
[2018-07-26 05:00] VITALS: BP 161/84
[2018-07-26 06:00] LABS: INR 4.1 (0.8-1.4); PROTHROMBIN TIME PATIENT 41.6 SEC (12.2-14.7)
[2018-07-26] MEDS: CATHETER FLUSH 10 ML SYR IV SCH ×3 (06:32→20:00)
[2018-07-26] MEDS: NITROFURANTOIN 100 MG (MACROBID) CAPSULE PO SCH ×2 (06:32→16:36)
[2018-07-26] MEDS: predniSONE 10 MG TAB PO SCH (06:32)
[2018-07-26] MEDS: GABAPENTIN 100 MG (NEURONTIN) CAP PO SCH ×3 (08:35→20:00)
[2018-07-26] MEDS: HYDROXYCHLOROQUINE 200 MG (PLAQUENIL) TAB PO SCH (08:35)
[2018-07-26] MEDS: ALLOPURINOL 100 MG (ZYLOPRIM) TAB PO SCH (08:35)
[2018-07-26] MEDS: amLODIPine 5 MG (NORVASC) TAB PO SCH (08:35)
[2018-07-26] MEDS: FLUoxetine HCL 20 MG (PROzac) CAP PO SCH (08:35)
[2018-07-26] MEDS: NICOTINE 7 MG (NICODERM) PATCH TD SCH (08:35)
[2018-07-26] MEDS: PATCH REMOVAL TP SCH (08:36)
[2018-07-26 08:37] VITALS: BP 121/60
[2018-07-26] MEDS: DIPHENOXYLATE/ATROPINE 2.5MG/0.025MG (LOMOTIL) TAB PO PRN (09:02)
[2018-07-26] MEDS: ASPIRIN 81 MG CHEW (CHILDREN'S ASA) PO SCH (11:39)
--- NOTE | 2018-07-26 11:39 | NUR ---
INR was 3.4 yesterday (07/25/18). Coumadin was held. INR is 4.1 today (07/26/18). Dr. Solitario notified and ok to give baby Aspirin.
[2018-07-26 11:45] VITALS: BP 145/80
--- NOTE | 2018-07-26 12:52 | PM&R Progress Note ---
Subjective HPI/CC On Admission Date Seen by Provider: July 26, 2018 Time Seen by Provider: 12:30 Chief compliant: Stroke HPI: This is a 73yoWF that I have taken care of for the past week for CHC who presented with a completed stroke with a right occipital infarct that was noted and confirmed on CT scan, did not even require an MRI and suffered a significant amount of left peripheral vision loss who presented to inpatient rehab in need of intensive therapy for fall prevention and to work on balance and compensatory mechanisms to make up for the loss of vision on the left peripherally. Barriers to returning home will be safely ambulating with assistive devices along with family support in addition we will work on Coumadin therapy since she has been subtherapeutic and super therapeutic on labs with 3.7 INR today in addition noted a creatinine bump at 1.37 so will need close follow up in inpatient rehab for blood pressure management, Coumadin level evaluation, and monitoring blood pressure management along with cardiology care. Her prior level of functioning was independent without a walker but she did suffer falls at home even prior to the stroke. 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 Subjective/Events-last exam Elevated blood pressure still being monitored Appreciate Dr Olvera's help INR is very variable (4.1 today) on an ongoing basis and will reach out to Dr Olvera tomorrow regarding changing to Eliquis Overall patient feels much better and is working on compensating for loss of left peripheral vision since stroke Balance is an issue and therapy really focusing on that since that is from the CVA Denies any pain except for chronic issues Conferred with RN Reviewed therapy notes Chronic diarrhea continues and had 2 this morning and now feels weak. Given Lomotil. Left great toe does not appear to be gout so will reach out to Dr Perez. Review of Systems General: Fatigue Neurological: Weakness, Numbness, Incoordination Objective Exam Vital Signs Vital Signs Date Time Temp Pulse Resp B/P (MAP) Pulse Ox O2 Delivery O2 Flow Rate FiO2 07/26/18 11:45 80 145/80 (101) 07/26/18 09:44 Room Air 07/26/18 05:00 97.2 16 97 Capillary Refill : General Appearance: No Apparent Distress, WD/WN, Chronically ill, Obese HEENT: PERRL/EOMI, Normal ENT Inspection, Pharynx Normal, Moist Mucous Membranes, Other (left peripheral vision loss) Neck: Full Range of Motion, Normal Inspection, Non Tender, Supple Respiratory: Chest Non Tender, Lungs Clear, Normal Breath Sounds, No Accessory Muscle Use, No Respiratory Distress, Decreased Breath Sounds Cardiovascular: Regular Rate, Rhythm, No Edema, No Gallop, No JVD, No Murmur Gastrointestinal: Normal Bowel Sounds, No Organomegaly, No Pulsatile Mass, Non Tender, Soft Back: Normal Inspection, No CVA Tenderness, No Vertebral Tenderness Extremity: Normal Capillary Refill, Normal Inspection, Normal Range of Motion, Non Tender, No Calf Tenderness, No Pedal Edema Neurologic/Psychiatric: Alert, Oriented x3, Normal Mood/Affect, enterprise application administrator II-XII Norm as 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 FIM Transfers Therapy Code Descriptions/Definitions Functional [place] Measure: 0=Not Assessed/NA 4=Minimal Assistance 1=Total Assistance 5=Supervision or Setup 2=Maximal Assistance 6=Modified [place] 3=Moderate Assistance 7=Complete [place] Therapy Quality Codes: 6 Independent with activity with or without an assistive device 5 Patient requires set up or clean up by helper. Patient completes activity by themselves 4 Supervision or touching assist (CGA). [place] provide cues , steadying assist 3 The helper provides less than half the effort to complete the activity 2 The helper provides more than half the effort to complete the activity 1 Dependent. The helper does all the effort to complete an activity 7 Patient refused to complete or attempt activity 9 The patient did not perform the activity before the current illness or injury 88 Not attempted due to Medical conditions or safety concerns Mental Status/Objective Comprehension: 7 Expression: 7 Social Interaction: 7 Problem Solvin Memory: 7 ADL-Treatment Feedin (dentures) Eating (QC): 6 Groomin (stanidng at sink/ SBA for safety. balance ) Oral Hygiene (QC): 4 Bathin Bathing Location: L Arm, R Arm, L Upper Leg, R Upper Leg, L Lower Leg ( including foot), R Lower Leg (including foot), Chest, Abdomen, Buttocks, Perineal Area Shower/Bathe Self (QC): 4 Upper Extremity Dressin Upper Body Dressing (QC): 4 Lower Extremity Dressin Lower Body Dressing (QC): 4 On/Off Footwear (QC): 4 Toiletin Toileting Hygiene (QC): 4 Toilet/Commode Transfer: 4 Toilet Transfer (QC): 4 Shower: 4 Assessment/Plan Assessment and Plan Assess & Plan/Chief Complaint (1) CVA (cerebral vascular accident) with loss of left peripheral vision Status: Acute (2) Lupus (systemic lupus erythematosus) Status: Chronic (3) Smoker Status: Chronic (4) Hypertension Status: Chronic (5) Hyperlipidemia Status: Chronic (6) Anticoagulated on Coumadin Status: Chronic (7) Thrombosis, renal vein Status: Chronic (8) Falls at home prior to CVA Plan: Smoking cessation counseled every day IRF protocols to be maintained Coumadin management but may be a candidate for Eliquis since such variable INR and patient is a fall risk and was supratherapeutic on admit Cardiology is appreciated ASA Statin Fall risk Balance focus Hypertension close monitoring Monitor INR closely Monitor left great toe pain and consult Dr Perez for nail (1) CVA (cerebral vascular accident) (2) Abdominal wall pain (3) Hyperlipidemia (4) Hypertension (5) Lupus (systemic lupus erythematosus) (6) Anticoagulated on Coumadin (7) Thrombosis, renal vein (8) UTI (urinary tract infection) (9) DVT prophylaxis (10) Ingrown left greater toenail (11) Smoker SERINA DEL REAL DO July 26, 2018 12:52
--- NOTE | 2018-07-26 13:38 | NUR ---
Orders from Dr. Mosquera to consult Dr. Perez tomorrow, 07/27/18, for foot care/left great toe pain. Also... ask Dr. Olvera tomorrow about switching from Coumadin to Eliquis. Will pass on in report.
[2018-07-26 18:14] VITALS: BP 136/68
[2018-07-26] MEDS: HYDROcodone/APAP 5 MG/325 MG (LORTAB) TAB PO PRN (19:59)
[2018-07-26] MEDS: doxAzosin 1 MG (CARDURA) TAB PO SCH (20:00)
[2018-07-26] MEDS: ATORVASTATIN 20 MG (LIPITOR) TABLET PO SCH (20:00)
[2018-07-27] MEDS: CATHETER FLUSH 10 ML SYR IV SCH ×3 (05:11→20:44)
[2018-07-27 05:17] VITALS: BP 168/74
[2018-07-27 05:34] LABS: BASOPHILS % (AUTO) 0 % (0-10); EOSINOPHILS # (AUTO) 0.2 10^3/uL (0.0-0.3); EOSINOPHILS % (AUTO) 2 % (0-10); HEMATOCRIT 32 % (35-52); HEMOGLOBIN 10.1 G/DL (11.5-16.0); LYMPHOCYTES # (AUTO) 2.3 X 10^3 (1.0-4.0); LYMPHOCYTES % (AUTO) 26 % (12-44); MEAN CORPUSCULAR HEMOGLOBIN 28 PG (25-34); MEAN CORPUSCULAR HGB CONC 32 G/DL (32-36); MEAN CORPUSCULAR VOLUME 90 FL (80-99); MEAN PLATELET VOLUME 10.3 FL (7.4-10.4); MONOCYTES # (AUTO) 0.8 X 10^3 (0.0-1.0); MONOCYTES % (AUTO) 9 % (0-12); NEUTROPHILS # (AUTO) 5.4 X 10^3 (1.8-7.8); NEUTROPHILS % (AUTO) 63 % (42-75); PLATELET COUNT 279 10^3/uL (130-400); RED CELL DISTRIBUTION WIDTH 15.7 % (10.0-14.5); WHITE BLOOD COUNT 8.7 10^3/uL (4.3-11.0)
[2018-07-27 05:39] LABS: INR 2.7 (0.8-1.4); PROTHROMBIN TIME PATIENT 30.2 SEC (12.2-14.7)
[2018-07-27 05:50] LABS: ALBUMIN 3.4 GM/DL (3.2-4.5); BILIRUBIN,TOTAL 0.4 MG/DL (0.1-1.0); CALCIUM 8.9 MG/DL (8.5-10.1); CREATININE SERUM 1.23 MG/DL (0.60-1.30); POTASSIUM 3.8 MMOL/L (3.6-5.0); TOTAL PROTEIN 5.6 GM/DL (6.4-8.2)
[2018-07-27] MEDS: NITROFURANTOIN 100 MG (MACROBID) CAPSULE PO SCH ×2 (06:03→17:32)
[2018-07-27] MEDS: predniSONE 10 MG TAB PO SCH (06:03)
--- NOTE | 2018-07-27 08:09 | PM&R Progress Note ---
Subjective HPI/CC On Admission Date Seen by Provider: July 27, 2018 Time Seen by Provider: 08:15 Chief compliant: Stroke HPI: This is a 73yoWF that I have taken care of for the past week for CHC who presented with a completed stroke with a right occipital infarct that was noted and confirmed on CT scan, did not even require an MRI and suffered a significant amount of left peripheral vision loss who presented to inpatient rehab in need of intensive therapy for fall prevention and to work on balance and compensatory mechanisms to make up for the loss of vision on the left peripherally. Barriers to returning home will be safely ambulating with assistive devices along with family support in addition we will work on Coumadin therapy since she has been subtherapeutic and super therapeutic on labs with 3.7 INR today in addition noted a creatinine bump at 1.37 so will need close follow up in inpatient rehab for blood pressure management, Coumadin level evaluation, and monitoring blood pressure management along with cardiology care. Her prior level of functioning was independent without a walker but she did suffer falls at home even prior to the stroke. 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 Subjective/Events-last exam Anticoagulation will be maintained on Coumadin due to the cost of switching to Eliquis. Labs are okay today. INR 2.7 Her vision will be followed up with Dr. Roblero at discharge. Overall feeling like she is making progress. Balance issues persist and place her at a fall risk since the stroke. Checked labs and meds. Conferred with RN. Reviewed therapy notes. Review of Systems General: Fatigue Neurological: Incoordination Objective Exam Vital Signs Vital Signs Date Time Temp Pulse Resp B/P (MAP) Pulse Ox O2 Delivery O2 Flow Rate FiO2 07/27/18 17:22 97.2 78 16 165/72 (103) 97 Room Air Capillary Refill : General Appearance: No Apparent Distress, WD/WN, Chronically ill, Obese HEENT: PERRL/EOMI, Normal ENT Inspection, Pharynx Normal, Moist Mucous Membranes, Other Neck: Full Range of Motion, Normal Inspection, Non Tender, Supple Respiratory: Chest Non Tender, Lungs Clear, Normal Breath Sounds, No Accessory Muscle Use, No Respiratory Distress, Decreased Breath Sounds Cardiovascular: Regular Rate, Rhythm, No Edema, No Gallop, No JVD, No Murmur Gastrointestinal: Normal Bowel Sounds, No Organomegaly, No Pulsatile Mass, Non Tender, Soft Back: Normal Inspection, No CVA Tenderness, No Vertebral Tenderness Extremity: Normal Capillary Refill, Normal Inspection, Normal Range of Motion, Non Tender, No Calf Tenderness, No Pedal Edema Neurologic/Psychiatric: Alert, Oriented x3, Normal Mood/Affect, histologic technician II-XII Norm as Tested, Abnormal Gait, Motor Weakness Skin: Normal Color, Warm/Dry Lymphatic: No Adenopathy Results/Procedures Lab Laboratory Tests 07/27/18 05:10 Patient resulted labs reviewed. FIM Transfers Therapy Code Descriptions/Definitions Functional [place] Measure: 0=Not Assessed/NA 4=Minimal Assistance 1=Total Assistance 5=Supervision or Setup 2=Maximal Assistance 6=Modified [place] 3=Moderate Assistance 7=Complete [place] Therapy Quality Codes: 6 Independent with activity with or without an assistive device 5 Patient requires set up or clean up by helper. Patient completes activity by themselves 4 Supervision or touching assist (CGA). [place] provide cues , steadying assist 3 The helper provides less than half the effort to complete the activity 2 The helper provides more than half the effort to complete the activity 1 Dependent. The helper does all the effort to complete an activity 7 Patient refused to complete or attempt activity 9 The patient did not perform the activity before the current illness or injury 88 Not attempted due to Medical conditions or safety concerns Mental Status/Objective Comprehension: 7 Expression: 7 Social Interaction: 7 Problem Solvin Memory: 7 ADL-Treatment Feedin (dentures) Eating (QC): 6 Groomin (stanidng at sink/ SBA for safety. balance ) Oral Hygiene (QC): 4 Bathin Bathing Location: L Arm, R Arm, L Upper Leg, R Upper Leg, L Lower Leg ( including foot), R Lower Leg (including foot), Chest, Abdomen, Buttocks, Perineal Area Shower/Bathe Self (QC): 4 Upper Extremity Dressin Upper Body Dressing (QC): 4 Lower Extremity Dressin Lower Body Dressing (QC): 4 On/Off Footwear (QC): 4 Toiletin Toileting Hygiene (QC): 4 Toilet/Commode Transfer: 4 Toilet Transfer (QC): 4 Shower: 4 Assessment/Plan Assessment and Plan Assess & Plan/Chief Complaint (1) CVA (cerebral vascular accident) with loss of left peripheral vision Status: Acute (2) Lupus (systemic lupus erythematosus) Status: Chronic (3) Smoker Status: Chronic (4) Hypertension Status: Chronic (5) Hyperlipidemia Status: Chronic (6) Anticoagulated on Coumadin Status: Chronic (7) Thrombosis, renal vein Status: Chronic (8) Falls at home prior to CVA Plan: Smoking cessation counseled every day IRF protocols to be maintained Coumadin management Cardiology is appreciated ASA Statin Fall risk Balance focus Hypertension close monitoring Monitor INR closely Monitor left great toe pain and consult Dr Perez for nail (1) CVA (cerebral vascular accident) (2) Abdominal wall pain (3) Hyperlipidemia (4) Hypertension (5) Lupus (systemic lupus erythematosus) (6) Anticoagulated on Coumadin (7) Thrombosis, renal vein (8) UTI (urinary tract infection) (9) DVT prophylaxis (10) Ingrown left greater toenail (11) Smoker SERINA DEL REAL DO July 27, 2018 08:09
[2018-07-27] MEDS: ASPIRIN 81 MG CHEW (CHILDREN'S ASA) PO SCH (09:09)
[2018-07-27] MEDS: HYDROXYCHLOROQUINE 200 MG (PLAQUENIL) TAB PO SCH (09:09)
[2018-07-27] MEDS: ALLOPURINOL 100 MG (ZYLOPRIM) TAB PO SCH (09:09)
[2018-07-27] MEDS: GABAPENTIN 100 MG (NEURONTIN) CAP PO SCH ×3 (09:09→20:43)
[2018-07-27] MEDS: PATCH REMOVAL TP SCH (09:10)
[2018-07-27] MEDS: FLUoxetine HCL 20 MG (PROzac) CAP PO SCH (09:10)
[2018-07-27] MEDS: amLODIPine 5 MG (NORVASC) TAB PO SCH (09:10)
[2018-07-27] MEDS: NICOTINE 7 MG (NICODERM) PATCH TD SCH (09:10)
--- NOTE | 2018-07-27 09:14 | Physical Therapy Daily Note ---
PT Daily Note-Current Subjective Pt laying supine in bed upon arrival. Pt agrees to PT. Mental Status Patient Orientation: Person, Place, Situation Transfers Therapy Code Descriptions/Definitions Functional [place] Measure: 0=Not Assessed/NA 4=Minimal Assistance 1=Total Assistance 5=Supervision or Setup 2=Maximal Assistance 6=Modified [place] 3=Moderate Assistance 7=Complete [place] Therapy Quality Codes: 6 Independent with activity with or without an assistive device 5 Patient requires set up or clean up by helper. Patient completes activity by themselves 4 Supervision or touching assist (CGA). [place] provide cues , steadying assist 3 The helper provides less than half the effort to complete the activity 2 The helper provides more than half the effort to complete the activity 1 Dependent. The helper does all the effort to complete an activity 7 Patient refused to complete or attempt activity 9 The patient did not perform the activity before the current illness or injury 88 Not attempted due to Medical conditions or safety concerns Scootin Supine to/from Sit: 5 Sit to/from Stand: 5 Sit to Stand (QC): 5 Weight Bearing Full Weight Bearing Full Weight Bearing Gait Training Does the Patient Walk?: Yes Distance (FIM): 3=150 ft Distance: 150' Walk 10 feet (QC): 5 Walk 50 ft with 2 Turns(QC): 5 Walk 150 ft (QC): 5 Gait Level of Assist: 5 Gait Persons Needed: 1 Gait Assistive Device: FWW Wheelchair Training Does the Pt Use a Wheelchair?: No Exercises Seated Reps: 20 Standing: Hamstring curls, Heel/toe raises, Marching, Mini squats, Weight shifts Standing Reps: 15 NuStep Minutes: 15 NuStep Workload: 4 Treatments Pt transfers from bed to standing and ambulates in hallway. Pt uses NuStep for 15m at WL 4 followed by Standing Ex in //bars. Pt ambulates in hallway before returning to room to rest. Assessment Current Status: Good Progress Pt is wanting to continue to progress self but is not always safe, needing VC from SERVICE CASHIER at times. PT Short Term Goals Short Term Goals Time Frame: July 28, 2018 Transfers (B,C,W/C) (FIM): 5 (met) Gait (FIM): 5 (met) Gait Distance Comment: 200' Gait Level of Assist: 5 Gait Assistive Device: Walker 4 Wheeled, Cane Small Base Quad PT Barrel Painter Goals Barrel Painter Goals PT Barrel Painter Goals Time Frame: August 11, 2018 Transfers (B,C,W/C) (FIM): 6 Sit to Lying (QC): 6 Lying-Sitting on Side/Bed(QC): 6 Sit to Stand (QC): 6 Rollin Roll Left to Right (QC): 6 Chair/Gxs-fi-Xhyxw Xfer(QC): 6 Car Transfer (QC): 6 Gait (FIM): 6 Distance: 300' Walk 10 feet (QC): 6 Walk 10ft-Uneven Surface(QC): 6 Walk 50ft with 2 Turns (QC): 6 Walk 150 ft (QC): 6 Gait Level of Assist: 6 Gait Assistive Device: Walker 4 Wheeled, Cane Small Base Quad Stairs (FIM): 5 # of Steps: 12 1 Step (curb) (QC): 4 4 Steps (QC): 4 12 Steps (QC): 4 Stairs Level Of Assist: 5 PT Plan Problem List Problem List: Activity Tolerance, Functional Strength, Safety Treatment/Plan Treatment Plan: Continue Plan of Care Treatment Plan: Bed Mobility, Education, Functional Activity Ghada, Functional Strength, Group Therapy, Gait, Safety, Therapeutic Exercise, Transfers Treatment Duration: August 11, 2018 Frequency: At least 5 of 7 days/Wk (IRF) Estimated Hrs Per Day: 1.5 hours per day Patient and/or Family Agrees t: Yes Safety Risks/Education Patient Education: Gait Training, Transfer Techniques, Correct Positioning, Safety Issues Teaching Recipient: Patient Teaching Methods: Discussion Response to Teaching: Verbalize Understanding Time/GCodes Time In: 815 Time Out: 915 Total Billed Treatment Time: 60 Total Billed Treatment 1, GT (15m), EX x2 (30m) & FA (15m) G Codes Necessary: SERENITY Diaz SERVICE CASHIER July 27, 2018 09:14
--- NOTE | 2018-07-27 10:13 | NUR ---
CINDER MAN sent updated clinical information to [facility] for continued stay review.
--- NOTE | 2018-07-27 10:15 | Occupational Ther Daily Note ---
OT Current Status-Daily Note Subjective pt agreed to OT TX Session with focus on increase independence with ADLS and UE ROM/ strength for daily activities. pt reports she feel that she will be ready to discharge home by then end of the week Mental Status/Objective Patient Orientation: Normal For Age Therapy Code Descriptions/Definitions Functional [place] Measure: 0=Not Assessed/NA 4=Minimal Assistance 1=Total Assistance 5=Supervision or Setup 2=Maximal Assistance 6=Modified [place] 3=Moderate Assistance 7=Complete [place] ADL-Treatment Therapy Code Descriptions/Definitions Functional [place] Measure: 0=Not Assessed/NA 4=Minimal Assistance 1=Total Assistance 5=Supervision or Setup 2=Maximal Assistance 6=Modified [place] 3=Moderate Assistance 7=Complete [place] Therapy Quality Codes: 6 Independent with activity with or without an assistive device 5 Patient requires set up or clean up by helper. Patient completes activity by themselves 4 Supervision or touching assist (CGA). [place] provide cues , steadying assist 3 The helper provides less than half the effort to complete the activity 2 The helper provides more than half the effort to complete the activity 1 Dependent. The helper does all the effort to complete an activity 7 Patient refused to complete or attempt activity 9 The patient did not perform the activity before the current illness or injury 88 Not attempted due to Medical conditions or safety concerns Eating (FIM): 6 (dentures) Eating (QC): 6 Grooming (FIM): 6 (standing at sink with safety concerns for balance) Oral Hygiene (QC): 6 Bathing (FIM): 5 (SPV for safety/ balance. ) Bathing Location: L Arm, R Arm, L Upper Leg, R Upper Leg, L Lower Leg ( including foot), R Lower Leg (including foot), Chest, Abdomen, Buttocks, Perineal Area Shower/Bathe Self (QC): 5 Upper Body (FIM): 5 Upper Body Dressing (QC): 4 Lower Body Dressing (FIM): 5 (safety concerns for balance. pt educaiton on holding onto GB for safety/ balance) Lower Body Dressing (QC): 4 On/Off Footwear (QC): 4 Toileting (FIM): 5 Toileting Hygiene (QC): 4 Transfers (B, C, W/C) (FIM): 5 Toilet/Commode Transfer (FIM): 5 Toilet Transfer (QC): 5 Shower Transfer(FIM): 5 pt demo ability to perform all ADLS with supervision for safety/ balance while using RW. pt demo no LOB this date but required MIN VC for safety cuing. Other Treatment pt complete ROM rings performing full shoulder flexion with 1# wrist weight on Left wrist and 2# wrist weight on right hand. noted pt demo compensation with LUE when moving rings right to left.. pr demo ability to perform 12 rings X2 with Ajay UE. Education OT Patient Education: Energy conservation, Modified ADL techniques, Progress toward Goal/Update tx plan, Purpose of tx/functional activities, Transfer techniques Teaching Recipient: Patient Teaching Methods: Demonstration, Discussion Response to Teaching: Verbalize Understanding, Return Demonstration OT Short Term Goals Short Term Goals Eating(FIM): 7 Grooming(FIM): 6 Bathing(FIM): 5 Upper Body Dressing(FIM): 5 Lower Body Dressing(FIM): 5 Toileting(FIM): 5 Transfers (B,C,W/C) (FIM): 5 (met) Toilet/Commode Transfer(FIM): 5 Tub Transfer(FIM): 5 Shower Transfer(FIM): 5 1=Demonstrate adherence to instructed precautions during ADL tasks. 2=Patient will verbalize/demonstrate understanding of assistive devices/ modifications for ADL. 3=Patient will improve strength/tolerance for activity to enable patient to perform ADL's. OT Lighting Engineer Goals Usp Goals Eating (FIM): 6 Eating (QC): 6 Groomin Oral Hygiene (QC): 7 Bathing(FIM): 6 Bathing Location: L Arm, R Arm, L Upper Leg, R Upper Leg, L Lower Leg ( including foot), R Lower Leg (including foot), Chest, Abdomen, Buttocks, Perineal Area Shower/Bathe Self (QC): 6 Upper Body Dressing(FIM): 7 Upper Body Dressing (QC): 6 Lower Body Dressing(FIM): 6 Lower Body Dressing (QC): 6 On/Off Footwear (QC): 6 Toileting(FIM): 6 Toileting Hygiene (QC): 6 Transfers (B,C,W/C) (FIM): 6 Toilet/Commode Transfer(FIM): 6 Toilet/Commode Transfer (QC): 6 Tub Transfer(FIM): 6 Shower Transfer(FIM): 6 1=Demonstrate adherence to instructed precautions during ADL tasks. 2=Patient will verbalize/demonstrate understanding of assistive devices/ modifications for ADL. 3=Patient will improve strength/tolerance for activity to enable patient to perform ADL's. OT Education/Plan Problem List/Assessment pt presents with functional limitation affecting area s of ADLS and functional transfers with deficits in: decrease vision with left eye. pt reports 20% "wavy " from left side of eye. pt reports she is able to see out of eye, it is just wavy," decrease dynamic/ static standing balance, decrease activity tolerance/ endurance, decrease UE strength, impaired IADLs, and overall safety with functional activities in standing. pt would benefit from skilled OT Services to increase overall independence with ADLS/ functional transfers and to address above mention deficits. Discharge Recommendations Plan/Recommendations: Continue POC Treatment Plan/Plan of Care Treatment,Training & Education: Yes Patient would benefit from OT for education, treatment and training to promote independence in ADL's, mobility, safety and/or upper extremity function for ADL' s. Plan of Care: ADL Retraining, Caregiver Training, Concurrent Therapy, Functional Mobility, Group Exercise/Act as Ind, UE Funct Exercise/Act, UE Neuromus Re-Ed/Coord, Visual/Perceptual Retrain Treatment Duration: August 11, 2018 Frequency: At least 5 of 7 days/Wk (IRF) Estimated Hrs Per Day: 1.5 hours per day Agreement: Yes Rehab Potential: Fair Time/GCodes Start Time: 09:30 Stop Time: 11:00 Billed Treatment Time ADL 65 minutes, 4 units FA 25 minutes, 2 units DOMINGO HALL OT July 27, 2018 10:15
[2018-07-27] MEDS: DIPHENOXYLATE/ATROPINE 2.5MG/0.025MG (LOMOTIL) TAB PO PRN (11:19)
[2018-07-27] MEDS: HYDROcodone/APAP 5 MG/325 MG (LORTAB) TAB PO PRN ×2 (11:20→20:43)
--- NOTE | 2018-07-27 13:20 | Progress Note-Cardiology ---
Cardiology SOAP Progress Note Subjective: Gen weakness No cp or palp or syncope or shortness of breath at rest Objective: I&O/Vital Signs 07/27/18 07/27/18 05:17 09:00 Temp 97.3 Pulse 84 Resp 16 B/P (MAP) 168/74 (105) Pulse Ox 97 O2 Delivery Room Air Room Air 07/27/18 00:00 Intake Total 1071 ml Balance 1071 ml Weight (Pounds): 167 Weight (Ounces): 3.0 Weight (Calculated Kilograms): 75.115274 Constitutional: AAO x 3, well-developed, well-nourished Respiratory: chest expansion is symmetric, chest is bilaterally symmetric, lungs clear to auscultation, other (prolonged expiratory phase) Cardiovascular: regular rate-rhythm; No JVD; S1 and S2 Gastrointestional: No tender; soft, round, audible bowel sounds Extremities: other ((RLE visibly larger than left (reports chronic)), no lower extremity edema bilateral Neurologic/Psychiatric: other ((L-sided visual field cut in both eyes)), grossly intact, power is 5/5 both on sides Skin: No rash, No ulcerations Results/Procedures: Labs Laboratory Tests 07/27/18 05:10: White Blood Count 8.7, Red Blood Count 3.58L, Hemoglobin 10.1L, Hematocrit 32L, Mean Corpuscular Volume 90, Mean Corpuscular Hemoglobin 28, Mean Corpuscular Hemoglobin Concent 32, Red Cell Distribution Width 15.7H, Platelet Count 279, Mean Platelet Volume 10.3, Neutrophils (%) (Auto) 63, Lymphocytes (%) (Auto) 26 , Monocytes (%) (Auto) 9, Eosinophils (%) (Auto) 2, Basophils (%) (Auto) 0, Neutrophils # (Auto) 5.4, Lymphocytes # (Auto) 2.3, Monocytes # (Auto) 0.8, Eosinophils # (Auto) 0.2, Basophils # (Auto) 0.0, Prothrombin Time 30.2H, INR Comment 2.7H, Sodium Level 141, Potassium Level 3.8, Chloride Level 109H, Carbon Dioxide Level 23, Anion Gap 9, Blood Urea Nitrogen 28H, Creatinine 1.23, Estimat Glomerular Filtration Rate 43, BUN/Creatinine Ratio 23, Glucose Level 79 , Calcium Level 8.9, Corrected Calcium 9.4, Total Bilirubin 0.4, Aspartate Amino Transf (AST/SGOT) 17, Alanine Aminotransferase (ALT/SGPT) 14, Alkaline Phosphatase 60, Total Protein 5.6L, Albumin 3.4 Laboratory Tests 07/27/18 05:10 A/P: Assessment: Hypertension, not well controlled CVA with L homonymous hemianopsia - small to moderate-sized area of acute/ subacute infarct involving the right occipital lobe. There is no evidence of intra-cranial hemorrhage, brain herniation, or midline shift on CT of the head on 07-15-18. Management of CVA is by Dr Mosquera Carotid artery disease - Per u/s of 07-15-18, there is mod bilat carotid arterial plaque, worse (50-70% stenosis) on the right UTI - management by Dr Mosquera Cardiac cath of July [address] Olvera showed multi-vessel dz - 60-70% mid-LAD involving origin of relatively sm caliber diag branch. 50-60% L Cx. RCA - large and dominant with 50% stenosis mid-vessel and 60% distal. LVEF 60%. Referred to Dr. Patel of cardiothoracic services at [facility] - medical tx advised at that time - has had no f/u Echo of 07/16/18: LVEF 45-50%, mod conc LVH, grade 1 caldwell dysfxn, PASP 25-30 mmHg H/O cervical cancer for which she has undergone chemo (last tx 12 years ago) H/O sleep apnea for which she is non-compliant with CPAP tx HLD - statin tx followed by her PCP H/O sinus bradycardia and V-tach during ED visit in November 2017 - transferred to [facility] at that time Chronic diarrhea Reports chronic lymphedema to right leg Depression Lupus Gout Family h/o CAD (son has had coronary stenting; mother has had CVA) Plan: Continue current medication regimen Titrate meds as needed Resume warfarin, but reduce dose Monitor labs, including INR DIMITRI OLVERA MD [facility] July 27, 2018 13:20
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
[2018-07-27 17:22] VITALS: BP 165/72
[2018-07-27] MEDS: warFARin 3 MG (COUMADIN) TAB PO SCH (17:32)
[2018-07-27] MEDS: doxAzosin 1 MG (CARDURA) TAB PO SCH (20:43)
[2018-07-27] MEDS: ATORVASTATIN 20 MG (LIPITOR) TABLET PO SCH (20:44)
[2018-07-28] MEDS: NITROFURANTOIN 100 MG (MACROBID) CAPSULE PO SCH (06:16)
[2018-07-28] MEDS: predniSONE 10 MG TAB PO SCH (06:16)
[2018-07-28] MEDS: CATHETER FLUSH 10 ML SYR IV SCH ×3 (06:17→20:34)
[2018-07-28 06:19] VITALS: BP 152/72
[2018-07-28 07:18] LABS: INR 2.1 (0.8-1.4); PROTHROMBIN TIME PATIENT 24.6 SEC (12.2-14.7)
--- NOTE | 2018-07-28 08:00 | NUR ---
DR. DEL REAL NOTIFIED THAT DR. CORLEY IS ON VACATION UNTIL AUGUST 03 AND PLAN IS FOR PATIENT TO FOLLOW UP ON OUTPATIENT BASIS. PATIENT STATES STILL SEES DARK SPOTS OUT OF LEFT EYE AND HAS SOME BLURRY VISION.
--- NOTE | 2018-07-28 08:30 | PM&R Progress Note ---
Subjective HPI/CC On Admission Date Seen by Provider: July 28, 2018 Time Seen by Provider: 08:10 Chief compliant: Stroke HPI: This is a 73yoWF that I have taken care of for the past week for [facility] who presented with a completed stroke with a right occipital infarct that was noted and confirmed on CT scan, did not even require an MRI and suffered a significant amount of left peripheral vision loss who presented to inpatient rehab in need of intensive therapy for fall prevention and to work on balance and compensatory mechanisms to make up for the loss of vision on the left peripherally. Barriers to returning home will be safely ambulating with assistive devices along with family support in addition we will work on Coumadin therapy since she has been subtherapeutic and super therapeutic on labs with 3.7 INR today in addition noted a creatinine bump at 1.37 so will need close follow up in inpatient rehab for blood pressure management, Coumadin level evaluation, and monitoring blood pressure management along with cardiology care. Her prior level of functioning was independent without a walker but she did suffer falls at home even prior to the stroke. 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 Subjective/Events-last exam INR is 2.1 on Coumadin of 3 mg. No bleeding issues. Walking with a cane. Peripheral vision causes increased risk for falls. Balance issues from the stroke. Doing very well with therapy. Checked labs and meds. Conferred with RN. Reviewed therapy notes. Review of Systems General: Fatigue Neurological: Weakness, Numbness, Incoordination Objective Exam Vital Signs Vital Signs Date Time Temp Pulse Resp B/P (MAP) Pulse Ox O2 Delivery O2 Flow Rate FiO2 07/28/18 20:34 62 153/66 (95) 07/28/18 17:49 98.2 16 95 Room Air Capillary Refill : General Appearance: No Apparent Distress, WD/WN, Chronically ill, Obese HEENT: PERRL/EOMI, Normal ENT Inspection, Pharynx Normal, Moist Mucous Membranes, Other Neck: Full Range of Motion, Normal Inspection, Non Tender, Supple Respiratory: Chest Non Tender, Lungs Clear, Normal Breath Sounds, No Accessory Muscle Use, No Respiratory Distress, Decreased Breath Sounds Cardiovascular: Regular Rate, Rhythm, No Edema, No Gallop, No JVD, No Murmur Gastrointestinal: Normal Bowel Sounds, No Organomegaly, No Pulsatile Mass, Non Tender, Soft Back: Normal Inspection, No CVA Tenderness, No Vertebral Tenderness Extremity: Normal Capillary Refill, Normal Inspection, Normal Range of Motion, Non Tender, No Calf Tenderness, No Pedal Edema Neurologic/Psychiatric: Alert, Oriented x3, Normal 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 FIM Transfers Therapy Code Descriptions/Definitions Functional [place] Measure: 0=Not Assessed/NA 4=Minimal Assistance 1=Total Assistance 5=Supervision or Setup 2=Maximal Assistance 6=Modified [place] 3=Moderate Assistance 7=Complete [place] Therapy Quality Codes: 6 Independent with activity with or without an assistive device 5 Patient requires set up or clean up by helper. Patient completes activity by themselves 4 Supervision or touching assist (CGA). [place] provide cues , steadying assist 3 The helper provides less than half the effort to complete the activity 2 The helper provides more than half the effort to complete the activity 1 Dependent. The helper does all the effort to complete an activity 7 Patient refused to complete or attempt activity 9 The patient did not perform the activity before the current illness or injury 88 Not attempted due to Medical conditions or safety concerns Mental Status/Objective Comprehension: 7 Expression: 7 Social Interaction: 7 Problem Solvin Memory: 7 ADL-Treatment Feedin (dentures) Eating (QC): 6 Groomin (standing at sink with safety concerns for balance) Oral Hygiene (QC): 6 Bathin (SPV for safety/ balance. ) Bathing Location: L Arm, R Arm, L Upper Leg, R Upper Leg, L Lower Leg ( including foot), R Lower Leg (including foot), Chest, Abdomen, Buttocks, Perineal Area Shower/Bathe Self (QC): 5 Upper Extremity Dressin Upper Body Dressing (QC): 4 Lower Extremity Dressin (safety concerns for balance. pt educaiton on holding onto GB for safety/ balance) Lower Body Dressing (QC): 4 On/Off Footwear (QC): 4 Toiletin Toileting Hygiene (QC): 4 Toilet/Commode Transfer: 5 Toilet Transfer (QC): 5 Shower: 5 Assessment/Plan Assessment and Plan Assess & Plan/Chief Complaint (1) CVA (cerebral vascular accident) with loss of left peripheral vision Status: Acute (2) Lupus (systemic lupus erythematosus) Status: Chronic (3) Smoker Status: Chronic (4) Hypertension Status: Chronic (5) Hyperlipidemia Status: Chronic (6) Anticoagulated on Coumadin Status: Chronic (7) Thrombosis, renal vein Status: Chronic (8) Falls at home prior to CVA Plan: Smoking cessation counseled every day IRF protocols to be maintained Coumadin management Cardiology is appreciated ASA Statin Fall risk Balance focus Hypertension close monitoring Monitor INR closely Monitor left great toe pain (1) CVA (cerebral vascular accident) (2) Abdominal wall pain (3) Hyperlipidemia (4) Hypertension (5) Lupus (systemic lupus erythematosus) (6) Anticoagulated on Coumadin (7) Thrombosis, renal vein (8) UTI (urinary tract infection) (9) DVT prophylaxis (10) Ingrown left greater toenail (11) Smoker SERINA DEL REAL DO July 28, 2018 08:30
--- NOTE | 2018-07-28 08:32 | Physical Therapy Daily Note ---
PT Daily Note-Current Subjective Agrees to PT. Reports she hopes to discharge home Friday. Reports she prefers to have outpt PT. Reports she has neighbors that can check on her as needed. Mental Status Patient Orientation: Person, Place, Time, Situation Transfers Therapy Code Descriptions/Definitions Functional [place] Measure: 0=Not Assessed/NA 4=Minimal Assistance 1=Total Assistance 5=Supervision or Setup 2=Maximal Assistance 6=Modified [place] 3=Moderate Assistance 7=Complete [place] Therapy Quality Codes: 6 Independent with activity with or without an assistive device 5 Patient requires set up or clean up by helper. Patient completes activity by themselves 4 Supervision or touching assist (CGA). [place] provide cues , steadying assist 3 The helper provides less than half the effort to complete the activity 2 The helper provides more than half the effort to complete the activity 1 Dependent. The helper does all the effort to complete an activity 7 Patient refused to complete or attempt activity 9 The patient did not perform the activity before the current illness or injury 88 Not attempted due to Medical conditions or safety concerns Transfers (B, C, W/C) (FIM): 5 Supine to/from Sit: 7 Sit to/from Stand: 5 (SBA for safety but pt uses correct hand placement and sequencing.) Sit to stand 2 x 5 with SBA for sequence training and functional strengthening. Weight Bearing Full Weight Bearing Full Weight Bearing Gait Training Does the Patient Walk?: Yes Gait (FIM): 4 Distance (FIM): 3=150 ft Gait Assistive Device: Cane Small Base Quad Pt ambulated 150 ft x several bouts with QC with CGA with focus on safety with walking with the cane and to promote high level balance training. Pt typically walks with a walker but wants to return to using a cane as she did before. Worked on uneven surface and up/down a curb x 6 repetitions to address balance and safety on varied surfaces. Up/down 4 steps with SBA with QC and handrail with step to pattern. Treatments Other treatment included safety education and discussion of use of QC vs 4WW for safety. Pt toileted with SBA for all transfers and dario care. Assessment Current Status: Good Progress Progressing. Tolerated higher balance training tasks today with the QC well, although requires CGA for safety; unsteady at times but able to correct herself. She also demonstrates good safety awareness as she pauses if she feels she is losing her balance. Progressing. PT Short Term Goals Short Term Goals Time Frame: July 28, 2018 Transfers (B,C,W/C) (FIM): 5 (met) Gait (FIM): 5 (met) Gait Distance Comment: 200' Gait Level of Assist: 5 Gait Assistive Device: Walker 4 Wheeled, Cane Small Base Quad PT [place] Operator Goals [place] Operator Goals PT [place] Operator Goals Time Frame: August 11, 2018 Transfers (B,C,W/C) (FIM): 6 Sit to Lying (QC): 6 Lying-Sitting on Side/Bed(QC): 6 Sit to Stand (QC): 6 Rollin Roll Left to Right (QC): 6 Chair/[id number]-[id number] Xfer(QC): 6 Car Transfer (QC): 6 Gait (FIM): 6 Distance: 300' Walk 10 feet (QC): 6 Walk 10ft-Uneven Surface(QC): 6 Walk 50ft with 2 Turns (QC): 6 Walk 150 ft (QC): 6 Gait Level of Assist: 6 Gait Assistive Device: Walker 4 Wheeled, Cane Small Base Quad Stairs (FIM): 5 # of Steps: 12 1 Step (curb) (QC): 4 4 Steps (QC): 4 12 Steps (QC): 4 Stairs Level Of Assist: 5 PT Plan Problem List Problem List: Activity Tolerance, Functional Strength, Safety, Balance, Gait, Transfer, Bed Mobility Treatment/Plan Treatment Plan: Continue Plan of Care Treatment Plan: Bed Mobility, Education, Functional Activity Ghada, Functional Strength, Group Therapy, Gait, Safety, Therapeutic Exercise, Transfers Treatment Duration: August 11, 2018 Frequency: At least 5 of 7 days/Wk (IRF) Estimated Hrs Per Day: 1.5 hours per day Patient and/or Family Agrees t: Yes Safety Risks/Education Patient Education: Transfer Techniques, Safety Issues Teaching Recipient: Patient Teaching Methods: Demonstration, Discussion Response to Teaching: Reinforcement Needed Discharge Recommendations Therapy D/C Recommendations: Physical Therapy Outpatient Time/GCodes Time In: 720 Time Out: 820 Total Billed Treatment Time: 60 Total Billed Treatment visit FA 60 MARIO SAM PT July 28, 2018 08:32
[2018-07-28] MEDS: HYDROXYCHLOROQUINE 200 MG (PLAQUENIL) TAB PO SCH (08:35)
[2018-07-28] MEDS: amLODIPine 5 MG (NORVASC) TAB PO SCH (08:36)
[2018-07-28] MEDS: FLUoxetine HCL 20 MG (PROzac) CAP PO SCH (08:36)
[2018-07-28] MEDS: GABAPENTIN 100 MG (NEURONTIN) CAP PO SCH ×3 (08:37→20:33)
[2018-07-28] MEDS: ASPIRIN 81 MG CHEW (CHILDREN'S ASA) PO SCH (08:37)
[2018-07-28] MEDS: ALLOPURINOL 100 MG (ZYLOPRIM) TAB PO SCH (08:37)
--- NOTE | 2018-07-28 10:00 | NUR ---
Boy OLIVEIRA SAW PATIENT AND ADDED TOPROL TO REGIMEN DUE TO ONGOING HTN.
[2018-07-28] MEDS: DIPHENOXYLATE/ATROPINE 2.5MG/0.025MG (LOMOTIL) TAB PO PRN (10:15)
[2018-07-28] MEDS: HYDROcodone/APAP 5 MG/325 MG (LORTAB) TAB PO PRN ×2 (10:16→20:33)
--- NOTE | 2018-07-28 10:24 | Progress Note-Cardiology ---
Cardiology SOAP Progress Note Subjective: In bed. States she is feeling ok. No c/o CP, palpitations, syncope or near syncope. Mild exertional dyspnea Objective: I&O/Vital Signs 07/28/18 07/28/18 06:19 09:00 Temp 98.0 Pulse 93 Resp 16 B/P (MAP) 152/72 (98) Pulse Ox 96 O2 Delivery Room Air Room Air 07/28/18 00:00 Intake Total 800 ml Balance 800 ml Weight (Pounds): 167 Weight (Ounces): 3.0 Weight (Calculated Kilograms): 75.076228 Constitutional: AAO x 3, well-developed, well-nourished Respiratory: chest expansion is symmetric, chest is bilaterally symmetric, lungs clear to auscultation, other (prolonged expiratory phase) Cardiovascular: regular rate-rhythm; No JVD; S1 and S2 Gastrointestional: No tender; soft, round, audible bowel sounds Extremities: other ((RLE visibly larger than left (reports chronic)), no lower extremity edema bilateral Neurologic/Psychiatric: other ((L-sided visual field cut in both eyes)), grossly intact, power is 5/5 both on sides Skin: No rash, No ulcerations Results/Procedures: Labs Laboratory Tests 07/28/18 07:00: Prothrombin Time 24.6H, INR Comment 2.1H A/P: Assessment: Hypertension, not well controlled CVA with L homonymous hemianopsia - small to moderate-sized area of acute/ subacute infarct involving the right occipital lobe. There is no evidence of intra-cranial hemorrhage, brain herniation, or midline shift on CT of the head on 07-15-18. Management of CVA is by Dr Mosquera Carotid artery disease - Per u/s of 07-15-18, there is mod bilat carotid arterial plaque, worse (50-70% stenosis) on the right UTI - management by Dr Mosquera Cardiac cath of July [address] Olvera showed multi-vessel dz - 60-70% mid-LAD involving origin of relatively sm caliber diag branch. 50-60% L Cx. RCA - large and dominant with 50% stenosis mid-vessel and 60% distal. LVEF 60%. Referred to Dr. Patel of cardiothoracic services at [facility] - medical tx advised at that time - has had no f/u Echo of 07/16/18: LVEF 45-50%, mod conc LVH, grade 1 caldwell dysfxn, PASP 25-30 mmHg H/O cervical cancer for which she has undergone chemo (last tx 12 years ago) H/O sleep apnea for which she is non-compliant with CPAP tx HLD - statin tx followed by her PCP H/O sinus bradycardia and V-tach during ED visit in November 2017 - transferred to [facility] at that time Chronic diarrhea Reports chronic lymphedema to right leg Depression Lupus Gout Family h/o CAD (son has had coronary stenting; mother has had CVA) Plan: BP not well controlled - add BB Continue warfarin at current dose Monitor labs, including INR Physician Assessment Physician Assessment Gen weakness and malaise No cp or palp or syncope or shortness of breath at rest Lungs: dec bs at bases Cor: reg Ext: no c/c/e A&R * As documented in our note above that I updated (italics) and as noted below * Continue to monitor INR and adjust warfarin to keep INR between 2 and 3 TATY ENGLE SHOE SALESMAN July 28, 2018 10:24 DIMITRI OLVERA MD FACP FAC CCDS July 28, 2018 12:56
[2018-07-28] MEDS ORDERED: meTOproloL SUCCINATE 50 MG (TOPROL XL) TAB PO NR (10:30)
[2018-07-28] MEDS: NICOTINE 7 MG (NICODERM) PATCH TD SCH (11:33)
[2018-07-28] MEDS: PATCH REMOVAL TP SCH (11:34)
--- NOTE | 2018-07-28 12:01 | Occupational Ther Daily Note ---
OT Current Status-Daily Note Subjective pt agreed to OT TX session with focus on increase independence with functional transfers, kitchen mobility, and safe use of AE for daily activities. Mental Status/Objective Patient Orientation: Normal For Age Therapy Code Descriptions/Definitions Functional [place] Measure: 0=Not Assessed/NA 4=Minimal Assistance 1=Total Assistance 5=Supervision or Setup 2=Maximal Assistance 6=Modified [place] 3=Moderate Assistance 7=Complete [place] ADL-Treatment Therapy Code Descriptions/Definitions Functional [place] Measure: 0=Not Assessed/NA 4=Minimal Assistance 1=Total Assistance 5=Supervision or Setup 2=Maximal Assistance 6=Modified [place] 3=Moderate Assistance 7=Complete [place] Therapy Quality Codes: 6 Independent with activity with or without an assistive device 5 Patient requires set up or clean up by helper. Patient completes activity by themselves 4 Supervision or touching assist (CGA). [place] provide cues , steadying assist 3 The helper provides less than half the effort to complete the activity 2 The helper provides more than half the effort to complete the activity 1 Dependent. The helper does all the effort to complete an activity 7 Patient refused to complete or attempt activity 9 The patient did not perform the activity before the current illness or injury 88 Not attempted due to Medical conditions or safety concerns Lower Body Dressing (QC): 6 (safety concerns for balance. ) On/Off Footwear (QC): 5 Toileting (FIM): 6 (use of GB) Toileting Hygiene (QC): 5 Transfers (B, C, W/C) (FIM): 5 Toilet Transfer (QC): 5 (pt education on safe tub transfers while using tub transfer bench. pt verbalized understanding and demo ability to perform 5X1 transfers using tub bench with supervision for safety/ balance. ) Other Treatment pt education on safe tub transfers while using tub transfer bench. pt verbalized understanding and demo ability to perform 5X1 transfers using tub bench with supervision for safety/ balance. pt education on kitchen mobility and safety with using RW. pt education on use of oven, microwave, plum packer, and refrigerator. pt demo ability to perform safe kitchen mobility using RW with SBA for safety/ balance X3 with no LOB noted. pt then ambulated to TX gym 75 ft with SBA using RW . pt education on use of interactive media project manager to pick items up from floor to energy conservation techniques and safety/ balance. pt demo ability to pepper picker 10 items from floor while seated not using any equipment with CGA for safety/ balance then demo ability to pepper picker 10 items using interactive media project manager while seated MOD I. pt then demo ability to gather 10X2 items from floor while standing balance maintain balance using RW and interactive media project manager. noted no LOB. pt then ambulated back to room 100 ft with SBA for safety/ balance. pt laying in bed post OT Session. all needs met. Education OT Patient Education: Energy conservation, Modified ADL techniques, Progress toward Goal/Update tx plan, Purpose of tx/functional activities, Transfer techniques, Use of adapted equipment Teaching Recipient: Patient Teaching Methods: Demonstration, Discussion Response to Teaching: Verbalize Understanding, Return Demonstration OT Short Term Goals Short Term Goals Eating(FIM): 7 Grooming(FIM): 6 Bathing(FIM): 5 Upper Body Dressing(FIM): 5 Lower Body Dressing(FIM): 5 Toileting(FIM): 5 Transfers (B,C,W/C) (FIM): 5 (met) Toilet/Commode Transfer(FIM): 5 Tub Transfer(FIM): 5 Shower Transfer(FIM): 5 1=Demonstrate adherence to instructed precautions during ADL tasks. 2=Patient will verbalize/demonstrate understanding of assistive devices/ modifications for ADL. 3=Patient will improve strength/tolerance for activity to enable patient to perform ADL's. OT Custodial Goals Disability Aide Goals Eating (FIM): 6 Eating (QC): 6 Groomin Oral Hygiene (QC): 7 Bathing(FIM): 6 Bathing Location: L Arm, R Arm, L Upper Leg, R Upper Leg, L Lower Leg ( including foot), R Lower Leg (including foot), Chest, Abdomen, Buttocks, Perineal Area Shower/Bathe Self (QC): 6 Upper Body Dressing(FIM): 7 Upper Body Dressing (QC): 6 Lower Body Dressing(FIM): 6 Lower Body Dressing (QC): 6 On/Off Footwear (QC): 6 Toileting(FIM): 6 Toileting Hygiene (QC): 6 Transfers (B,C,W/C) (FIM): 6 Toilet/Commode Transfer(FIM): 6 Toilet/Commode Transfer (QC): 6 Tub Transfer(FIM): 6 Shower Transfer(FIM): 6 1=Demonstrate adherence to instructed precautions during ADL tasks. 2=Patient will verbalize/demonstrate understanding of assistive devices/ modifications for ADL. 3=Patient will improve strength/tolerance for activity to enable patient to perform ADL's. OT Education/Plan Problem List/Assessment pt presents with functional limitation affecting area s of ADLS and functional transfers with deficits in: decrease vision with left eye. pt reports 20% "wavy " from left side of eye. pt reports she is able to see out of eye, it is just wavy," decrease dynamic/ static standing balance, decrease activity tolerance/ endurance, decrease UE strength, impaired IADLs, and overall safety with functional activities in standing. pt would benefit from skilled OT Services to increase overall independence with ADLS/ functional transfers and to address above mention deficits. Discharge Recommendations Plan/Recommendations: Continue POC Treatment Plan/Plan of Care Treatment,Training & Education: Yes Patient would benefit from OT for education, treatment and training to promote independence in ADL's, mobility, safety and/or upper extremity function for ADL' s. Plan of Care: ADL Retraining, Caregiver Training, Concurrent Therapy, Functional Mobility, Group Exercise/Act as Ind, UE Funct Exercise/Act, UE Neuromus Re-Ed/Coord, Visual/Perceptual Retrain Treatment Duration: August 11, 2018 Frequency: At least 5 of 7 days/Wk (IRF) Estimated Hrs Per Day: 1.5 hours per day Agreement: Yes Rehab Potential: Fair Time/GCodes Start Time: 09:00 Stop Time: 10:00 Billed Treatment Time FA 60 minutes, 4 units DOMINGO HALL OT July 28, 2018 12:01
--- NOTE | 2018-07-28 14:31 | Therapy Group Daily Note ---
Therapy Daily Group Note Patient Education Topic Home Safety, Other List Below (ARU expectations/description) Exercises LE Seated Exercise, UE Exercise Session Ratio (pt:therapist): 3:1 Goal of Session: Education on ARU Expectations, Home Safety Strategies Goal Met for this Session: Yes Pt Benefit of Group: Contributions to Others, F/U Use of Strategies @Home, Increased Functional Safety, Increased Functional Strength, Improved Cognition, Recognition of Peers, Socialization Other/Notes Pt ambulated to group with FWW. OT/PT group consisted of introductions (name, place, break the ice questions), socialization, ARU description/expectation, UE/ LE seat exercises and home safety eduction. Pt actively listened to peers and introduced self appropriately. Pt engaged in activities and was able to participate in exercises. Pt demonstrated good activity tolerance and strength with activities. Activities to engage core and work on dynamic sitting balance for daily functional tasks. Pt acknowledged understanding of educational topics by voicing questions and opinions. After therapy, pt sitting in w/c with call light/phone in reach. All needs met in room. Start Time: 13:00 Stop Time: 14:10 Total Billed Treatment Time: 70 Total Billed Treatment 1-GRP MARIO LANDIN July 28, 2018 14:31
[2018-07-28] MEDS: warFARin 3 MG (COUMADIN) TAB PO SCH (17:47)
[2018-07-28 17:49] VITALS: BP 121/62
[2018-07-28] MEDS: ATORVASTATIN 20 MG (LIPITOR) TABLET PO SCH (20:33)
[2018-07-28] MEDS: doxAzosin 1 MG (CARDURA) TAB PO SCH (20:33)
[2018-07-28 20:34] VITALS: BP 153/66
[2018-07-29 05:12] VITALS: BP 124/67
[2018-07-29] MEDS: CATHETER FLUSH 10 ML SYR IV SCH ×3 (06:00→20:07)
[2018-07-29] MEDS: predniSONE 10 MG TAB PO SCH (06:00)
[2018-07-29 07:08] LABS: INR 2.2 (0.8-1.4); PROTHROMBIN TIME PATIENT 25.6 SEC (12.2-14.7)
--- NOTE | 2018-07-29 08:35 | Occupational Ther Daily Note ---
OT Current Status-Daily Note Subjective pt sitting EOB upon OT Arrival in. pt stated "My legs feel a little weak today" pt agreed to OT TX session with focus on increase independence with ADLS and increase UE strength/ ROM For daily activities. pt verbalized she will only use RW when d/c from hospital. Mental Status/Objective Patient Orientation: Normal For Age Therapy Code Descriptions/Definitions Functional [place] Measure: 0=Not Assessed/NA 4=Minimal Assistance 1=Total Assistance 5=Supervision or Setup 2=Maximal Assistance 6=Modified [place] 3=Moderate Assistance 7=Complete [place] ADL-Treatment Therapy Code Descriptions/Definitions Functional [place] Measure: 0=Not Assessed/NA 4=Minimal Assistance 1=Total Assistance 5=Supervision or Setup 2=Maximal Assistance 6=Modified [place] 3=Moderate Assistance 7=Complete [place] Therapy Quality Codes: 6 Independent with activity with or without an assistive device 5 Patient requires set up or clean up by helper. Patient completes activity by themselves 4 Supervision or touching assist (CGA). [place] provide cues , steadying assist 3 The helper provides less than half the effort to complete the activity 2 The helper provides more than half the effort to complete the activity 1 Dependent. The helper does all the effort to complete an activity 7 Patient refused to complete or attempt activity 9 The patient did not perform the activity before the current illness or injury 88 Not attempted due to Medical conditions or safety concerns Eating (FIM): 6 (dentures) Eating (QC): 6 Grooming (FIM): 6 (standing at sink. safety concerns for balance. pt demo no LOB ) Oral Hygiene (QC): 6 Bathing (FIM): 6 (use of shower chair and GB while standing to wash buttock) Bathing Location: L Arm, R Arm, L Upper Leg, R Upper Leg, L Lower Leg ( including foot), R Lower Leg (including foot), Chest, Abdomen, Buttocks, Perineal Area Shower/Bathe Self (QC): 6 Upper Body (FIM): 7 Upper Body Dressing (QC): 6 Lower Body Dressing (FIM): 6 (safety concerns for balance,. noted no use of AE while stnaidng to pull up/ down pants. no LOB noted ) Lower Body Dressing (QC): 6 On/Off Footwear (QC): 6 Toileting (FIM): 6 (no use of AE while standing to pull up/ down pants. safety concerns for safety/ balance ) Toileting Hygiene (QC): 6 Transfers (B, C, W/C) (FIM): 6 (use of RW) Toilet/Commode Transfer (FIM): 6 (use of RW) Toilet Transfer (QC): 6 (use of RW) Shower Transfer(FIM): 6 (use of GB and shower chair) pt used RW throughout all self care/ ADL tasks. pt stated she will use RW within her house at all times. pt demo incontinence while in shower but demo ability to perform IADL to clean shower MOD I. Other Treatment pt stated she plans on using RW when d/c from hospital. pt stated she will wait to use quad can until she gets outpt therapy to increase independence/ safety with quad cane. pt demo ability to ambulate to TX gym, approx. 100 ft MOD I using RW. pt demo no LOB. pt requested to perform ROM rings to increase UE ROM/ strength for daily activities. pt person 12 ROM rings from right to left usign 3# wrist weight on Right wrist and 1# wrist weight on left wrist. pt then ambulated back to room MOD I and performed bed mobility independently. call light within reach, all needs met. OT Short Term Goals Short Term Goals Eating(FIM): 7 Grooming(FIM): 6 Bathing(FIM): 5 Upper Body Dressing(FIM): 5 Lower Body Dressing(FIM): 5 Toileting(FIM): 5 Transfers (B,C,W/C) (FIM): 5 (met) Toilet/Commode Transfer(FIM): 5 Tub Transfer(FIM): 5 Shower Transfer(FIM): 5 1=Demonstrate adherence to instructed precautions during ADL tasks. 2=Patient will verbalize/demonstrate understanding of assistive devices/ modifications for ADL. 3=Patient will improve strength/tolerance for activity to enable patient to perform ADL's. OT Fci Goals Fci Goals Eating (FIM): 6 Eating (QC): 6 Groomin Oral Hygiene (QC): 7 Bathing(FIM): 6 Bathing Location: L Arm, R Arm, L Upper Leg, R Upper Leg, L Lower Leg ( including foot), R Lower Leg (including foot), Chest, Abdomen, Buttocks, Perineal Area Shower/Bathe Self (QC): 6 Upper Body Dressing(FIM): 7 Upper Body Dressing (QC): 6 Lower Body Dressing(FIM): 6 Lower Body Dressing (QC): 6 On/Off Footwear (QC): 6 Toileting(FIM): 6 Toileting Hygiene (QC): 6 Transfers (B,C,W/C) (FIM): 6 Toilet/Commode Transfer(FIM): 6 Toilet/Commode Transfer (QC): 6 Tub Transfer(FIM): 6 Shower Transfer(FIM): 6 1=Demonstrate adherence to instructed precautions during ADL tasks. 2=Patient will verbalize/demonstrate understanding of assistive devices/ modifications for ADL. 3=Patient will improve strength/tolerance for activity to enable patient to perform ADL's. OT Education/Plan Problem List/Assessment pt presents with functional limitation affecting area s of ADLS and functional transfers with deficits in: decrease vision with left eye. pt reports 20% "wavy " from left side of eye. pt reports she is able to see out of eye, it is just wavy," , decrease Left UE strength. pt would benefit from continued skilled OT Services to increase overall independence with ADLS/ functional transfers and to address above mention deficits. Discharge Recommendations Plan/Recommendations: Continue POC Treatment Plan/Plan of Care Treatment,Training & Education: Yes Patient would benefit from OT for education, treatment and training to promote independence in ADL's, mobility, safety and/or upper extremity function for ADL' s. Plan of Care: ADL Retraining, Caregiver Training, Concurrent Therapy, Functional Mobility, Group Exercise/Act as Ind, UE Funct Exercise/Act, UE Neuromus Re-Ed/Coord, Visual/Perceptual Retrain Treatment Duration: August 11, 2018 Frequency: At least 5 of 7 days/Wk (IRF) Estimated Hrs Per Day: 1.5 hours per day Agreement: Yes Rehab Potential: Fair Time/GCodes Start Time: 08:00 Stop Time: 09:30 Billed Treatment Time ADL 70 minutes, 5 minutes FA 20 minutes, 1 unit DOMINGO HALL OT July 29, 2018 08:35
--- NOTE | 2018-07-29 08:38 | PM&R Progress Note ---
Subjective HPI/CC On Admission Date Seen by Provider: July 29, 2018 Time Seen by Provider: 08:15 Chief compliant: Stroke HPI: This is a 73yoWF that I have taken care of for the past week for [facility] who presented with a completed stroke with a right occipital infarct that was noted and confirmed on CT scan, did not even require an MRI and suffered a significant amount of left peripheral vision loss who presented to inpatient rehab in need of intensive therapy for fall prevention and to work on balance and compensatory mechanisms to make up for the loss of vision on the left peripherally. Barriers to returning home will be safely ambulating with assistive devices along with family support in addition we will work on Coumadin therapy since she has been subtherapeutic and super therapeutic on labs with 3.7 INR today in addition noted a creatinine bump at 1.37 so will need close follow up in inpatient rehab for blood pressure management, Coumadin level evaluation, and monitoring blood pressure management along with cardiology care. Her prior level of functioning was independent without a walker but she did suffer falls at home even prior to the stroke. 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 Subjective/Events-last exam INR is 2.2 on Coumadin 3mg Having loose stools in the shower Has chronic diarrhea on a regular basis Overall improving with PT due to loss of peripheral vision causing balance issues and significant fall risk Denies any pain Smoking cessation counseled everyday Doing very well with therapy. Checked labs and meds. Conferred with RN. Reviewed therapy notes. Review of Systems Genitourinary: Incontinence Objective Exam Vital Signs Vital Signs Date Time Temp Pulse Resp B/P (MAP) Pulse Ox O2 Delivery O2 Flow Rate FiO2 07/29/18 17:14 98.0 62 18 106/63 (77) 95 Room Air Capillary Refill : General Appearance: No Apparent Distress, WD/WN, Chronically ill, Obese HEENT: PERRL/EOMI, Normal ENT Inspection, Pharynx Normal, Moist Mucous Membranes, Other Neck: Full Range of Motion, Normal Inspection, Non Tender, Supple Respiratory: Chest Non Tender, Lungs Clear, Normal Breath Sounds, No Accessory Muscle Use, No Respiratory Distress, Decreased Breath Sounds Cardiovascular: Regular Rate, Rhythm, No Edema, No Gallop, No JVD, No Murmur Gastrointestinal: Normal Bowel Sounds, No Organomegaly, No Pulsatile Mass, Non Tender, Soft Back: Normal Inspection, No CVA Tenderness, No Vertebral Tenderness Extremity: Normal Capillary Refill, Normal Inspection, Normal Range of Motion, Non Tender, No Calf Tenderness, No Pedal Edema Neurologic/Psychiatric: Alert, Oriented x3, Normal Mood/Affect, speech language assistant II-XII Norm as Tested, Abnormal Gait, Motor Weakness Skin: Normal Color, Warm/Dry Lymphatic: No Adenopathy Results/Procedures Lab Patient resulted labs reviewed. FIM Transfers Therapy Code Descriptions/Definitions Functional [place] Measure: 0=Not Assessed/NA 4=Minimal Assistance 1=Total Assistance 5=Supervision or Setup 2=Maximal Assistance 6=Modified [place] 3=Moderate Assistance 7=Complete [place] Therapy Quality Codes: 6 Independent with activity with or without an assistive device 5 Patient requires set up or clean up by helper. Patient completes activity by themselves 4 Supervision or touching assist (CGA). [place] provide cues , steadying assist 3 The helper provides less than half the effort to complete the activity 2 The helper provides more than half the effort to complete the activity 1 Dependent. The helper does all the effort to complete an activity 7 Patient refused to complete or attempt activity 9 The patient did not perform the activity before the current illness or injury 88 Not attempted due to Medical conditions or safety concerns Mental Status/Objective Comprehension: 7 Expression: 7 Social Interaction: 7 Problem Solvin Memory: 7 ADL-Treatment Feedin (dentures) Eating (QC): 6 Groomin (standing at sink. safety concerns for balance. pt demo no LOB ) Oral Hygiene (QC): 6 Bathin (use of shower chair and GB while standing to wash buttock) Bathing Location: L Arm, R Arm, L Upper Leg, R Upper Leg, L Lower Leg ( including foot), R Lower Leg (including foot), Chest, Abdomen, Buttocks, Perineal Area Shower/Bathe Self (QC): 6 Upper Extremity Dressin Upper Body Dressing (QC): 6 Lower Extremity Dressin (safety concerns for balance,. noted no use of AE while stnaidng to pull up/ down pants. no LOB noted ) Lower Body Dressing (QC): 6 On/Off Footwear (QC): 6 Toiletin (use of GB) Toileting Hygiene (QC): 5 Toilet/Commode Transfer: 5 Toilet Transfer (QC): 5 (pt education on safe tub transfers while using tub transfer bench. pt verbalized understanding and demo ability to perform 5X1 transfers using tub bench with supervision for safety/ balance. ) Shower: 5 Assessment/Plan Assessment and Plan Assess & Plan/Chief Complaint (1) CVA (cerebral vascular accident) with loss of left peripheral vision Status: Acute (2) Lupus (systemic lupus erythematosus) Status: Chronic (3) Smoker Status: Chronic (4) Hypertension Status: Chronic (5) Hyperlipidemia Status: Chronic (6) Anticoagulated on Coumadin Status: Chronic (7) Thrombosis, renal vein Status: Chronic (8) Falls at home prior to CVA Plan: Smoking cessation counseled every day IRF protocols to be maintained Coumadin management Cardiology is appreciated ASA Statin Fall risk Balance focus Hypertension close monitoring Monitor INR closely Monitor left great toe pain (1) CVA (cerebral vascular accident) (2) Abdominal wall pain (3) Hyperlipidemia (4) Hypertension (5) Lupus (systemic lupus erythematosus) (6) Anticoagulated on Coumadin (7) Thrombosis, renal vein (8) UTI (urinary tract infection) (9) DVT prophylaxis (10) Ingrown left greater toenail (11) Smoker SERINA DEL REAL DO July 29, 2018 08:38
[2018-07-29] MEDS: FLUoxetine HCL 20 MG (PROzac) CAP PO SCH (08:39)
[2018-07-29] MEDS: amLODIPine 5 MG (NORVASC) TAB PO SCH (08:39)
[2018-07-29] MEDS: ALLOPURINOL 100 MG (ZYLOPRIM) TAB PO SCH (08:39)
[2018-07-29] MEDS: DIPHENOXYLATE/ATROPINE 2.5MG/0.025MG (LOMOTIL) TAB PO PRN (08:40)
[2018-07-29] MEDS: meTOproloL SUCCINATE 50 MG (TOPROL XL) TAB PO SCH (08:40)
[2018-07-29] MEDS: ASPIRIN 81 MG CHEW (CHILDREN'S ASA) PO SCH (08:40)
[2018-07-29] MEDS: HYDROcodone/APAP 5 MG/325 MG (LORTAB) TAB PO PRN (08:40)
[2018-07-29] MEDS: GABAPENTIN 100 MG (NEURONTIN) CAP PO SCH ×3 (08:40→20:07)
[2018-07-29] MEDS: HYDROXYCHLOROQUINE 200 MG (PLAQUENIL) TAB PO SCH (08:41)
[2018-07-29] MEDS: NICOTINE 7 MG (NICODERM) PATCH TD SCH (08:42)
[2018-07-29 08:45] VITALS: BP 116/67
[2018-07-29] MEDS: PATCH REMOVAL TP SCH (09:06)
--- NOTE | 2018-07-29 10:20 | Physical Therapy Daily Note ---
PT Daily Note-Current Subjective Pt sitting in recliner upon arrival. Pt agrees to PT. Pt asked to D/C for Friday, discussion for Weekly ARU Mtg. Pain Location: No Pain Reported Mental Status Patient Orientation: Person, Place, Situation Transfers Therapy Code Descriptions/Definitions Functional [place] Measure: 0=Not Assessed/NA 4=Minimal Assistance 1=Total Assistance 5=Supervision or Setup 2=Maximal Assistance 6=Modified [place] 3=Moderate Assistance 7=Complete [place] Therapy Quality Codes: 6 Independent with activity with or without an assistive device 5 Patient requires set up or clean up by helper. Patient completes activity by themselves 4 Supervision or touching assist (CGA). [place] provide cues , steadying assist 3 The helper provides less than half the effort to complete the activity 2 The helper provides more than half the effort to complete the activity 1 Dependent. The helper does all the effort to complete an activity 7 Patient refused to complete or attempt activity 9 The patient did not perform the activity before the current illness or injury 88 Not attempted due to Medical conditions or safety concerns Transfers (B, C, W/C) (FIM): 6 Scootin Rollin Roll Left to Right (QC): 6 Supine to/from Sit: 6 Sit to/from Stand: 6 Sit to Lying (QC): 6 Sit to Stand (QC): 6 Chair/Iwf-fi-Bhhvd Xfer(QC): 6 Bed to/from Chair: 6 Car Transfer (QC): 6 Weight Bearing Full Weight Bearing Full Weight Bearing Gait Training Does the Patient Walk?: Yes Gait (FIM): 6 Distance (FIM): 3=150 ft Distance: 175' Walk 10 feet (QC): 6 Walk 50 ft with 2 Turns(QC): 6 Walk 150 ft (QC): 6 Gait Level of Assist: 6 Gait Persons Needed: 1 Gait Assistive Device: FWW Pt walks at Mod I with FWW but CGA-Min A with LBQC. Pt is not as safe and pt & LEAKAGE TESTER have discussed this so pt agrees to not use LBQC until stronger. Wheelchair Training Does the Pt Use a Wheelchair?: No Stair Training Stair Training: Handrails/: 2 handrails Stairs (FIM): 6 #of Steps: 12 1 Step (curb) (QC): 6 4 Steps (QC): 6 12 Steps (QC): 6 Stairs: Pattern: Step to Level of Assist: 6 Balance Picking up an Object (QC): 88 Special Test Comments Pt does not attempt this due to dizziness & has mussel opener to use at home. Treatments Pt completes items for FIM scoring including bed mobility, transfers including car transfer & ambulation including across a varying surface. Pt returns to room at end of tx with all needs met. Assessment Current Status: Good Progress Pt takes RB as needed. Pt has agreed to use FWW instead of LBQC for improved safety. Pt will progress as strength & balance improves. PT Short Term Goals Short Term Goals Time Frame: July 28, 2018 Transfers (B,C,W/C) (FIM): 5 (met) Gait (FIM): 5 (met) Gait Distance Comment: 200' Gait Level of Assist: 5 Gait Assistive Device: Walker 4 Wheeled, Cane Small Base Quad PT Longterm Goals Cake Washer Goals PT Longterm Goals Time Frame: August 11, 2018 Transfers (B,C,W/C) (FIM): 6 Sit to Lying (QC): 6 Lying-Sitting on Side/Bed(QC): 6 Sit to Stand (QC): 6 Rollin Roll Left to Right (QC): 6 Chair/Frj-tf-Vycsy Xfer(QC): 6 Car Transfer (QC): 6 Gait (FIM): 6 Distance: 300' Walk 10 feet (QC): 6 Walk 10ft-Uneven Surface(QC): 6 Walk 50ft with 2 Turns (QC): 6 Walk 150 ft (QC): 6 Gait Level of Assist: 6 Gait Assistive Device: Walker 4 Wheeled, Cane Small Base Quad Stairs (FIM): 5 # of Steps: 12 1 Step (curb) (QC): 4 4 Steps (QC): 4 12 Steps (QC): 4 Stairs Level Of Assist: 5 PT Plan Problem List Problem List: Activity Tolerance Treatment/Plan Treatment Plan: Continue Plan of Care Treatment Plan: Bed Mobility, Education, Functional Activity Ghada, Functional Strength, Group Therapy, Gait, Safety, Therapeutic Exercise, Transfers Treatment Duration: August 11, 2018 Frequency: At least 5 of 7 days/Wk (IRF) Estimated Hrs Per Day: 1.5 hours per day Patient and/or Family Agrees t: Yes Safety Risks/Education Patient Education: Gait Training, Transfer Techniques, Correct Positioning, Safety Issues Teaching Recipient: Patient Teaching Methods: Discussion Response to Teaching: Verbalize Understanding Time/GCodes Time In: 930 Time Out: 1015 Total Billed Treatment Time: 45 Total Billed Treatment 1, GT (15m) & FA x2 (30m) G Codes Necessary: SERENITY Diaz LEAKAGE TESTER July 29, 2018 10:20
--- NOTE | 2018-07-29 13:13 | Progress Note-Cardiology ---
Cardiology SOAP Progress Note Subjective: No cp or palp or syncope or shortness of breath at rest Objective: I&O/Vital Signs 07/29/18 07/29/18 07/29/18 05:12 08:45 09:59 Temp 98.6 Pulse 62 62 Resp 16 B/P (MAP) 124/67 (86) 116/67 (83) Pulse Ox 97 O2 Delivery Room Air Room Air 07/29/18 00:00 Intake Total 820 ml Balance 820 ml Weight (Pounds): 166 Weight (Ounces): 2.0 Weight (Calculated Kilograms): 75.155645 Constitutional: AAO x 3, well-developed, well-nourished Respiratory: chest expansion is symmetric, chest is bilaterally symmetric, lungs clear to auscultation, other (prolonged expiratory phase) Cardiovascular: regular rate-rhythm; No JVD; S1 and S2 Gastrointestional: No tender; soft, round, audible bowel sounds Extremities: other ((RLE visibly larger than left (reports chronic)), no lower extremity edema bilateral Neurologic/Psychiatric: other ((L-sided visual field cut in both eyes)), grossly intact, power is 5/5 both on sides Skin: No rash, No ulcerations Results/Procedures: Labs Laboratory Tests 07/29/18 06:45: Prothrombin Time 25.6H, INR Comment 2.2H A/P: Assessment: Hypertension CVA with L homonymous hemianopsia - small to moderate-sized area of acute/ subacute infarct involving the right occipital lobe. There is no evidence of intra-cranial hemorrhage, brain herniation, or midline shift on CT of the head on 07-15-18. Management of CVA is by Dr Mosquera Carotid artery disease - Per u/s of 07-15-18, there is mod bilat carotid arterial plaque, worse (50-70% stenosis) on the right UTI - management by Dr Mosquera Cardiac cath of July [address] Olvera showed multi-vessel dz - 60-70% mid-LAD involving origin of relatively sm caliber diag branch. 50-60% L Cx. RCA - large and dominant with 50% stenosis mid-vessel and 60% distal. LVEF 60%. Referred to Dr. Patel of cardiothoracic services at [facility] - medical tx advised at that time - has had no f/u Echo of 07/16/18: LVEF 45-50%, mod conc LVH, grade 1 caldwell dysfxn, PASP 25-30 mmHg H/O cervical cancer for which she has undergone chemo (last tx 12 years ago) H/O sleep apnea for which she is non-compliant with CPAP tx HLD - statin tx followed by her PCP H/O sinus bradycardia and V-tach during ED visit in November 2017 - transferred to [facility] at that time Chronic diarrhea Reports chronic lymphedema to right leg Depression Lupus Gout Family h/o CAD (son has had coronary stenting; mother has had CVA) Plan: Continue warfarin at current dose Monitor labs, including INR DIMITRI OLVERA MD FACP FAC CCDS July 29, 2018 13:13
--- NOTE | 2018-07-29 15:07 | Physical Therapy Daily Note ---
PT Daily Note-Current Subjective Patient in bed pre tx, agrees to PT, has no complaints of pain. Patient needs to use the restroom and ambulates into it on her own and goes to the bathroom without assist. Appearance Patient sitting EOB post tx with nurse call, phone, tray, all needs met. Mental Status Patient Orientation: Person, Place, Situation Transfers Therapy Code Descriptions/Definitions Functional [place] Measure: 0=Not Assessed/NA 4=Minimal Assistance 1=Total Assistance 5=Supervision or Setup 2=Maximal Assistance 6=Modified [place] 3=Moderate Assistance 7=Complete [place] Therapy Quality Codes: 6 Independent with activity with or without an assistive device 5 Patient requires set up or clean up by helper. Patient completes activity by themselves 4 Supervision or touching assist (CGA). [place] provide cues , steadying assist 3 The helper provides less than half the effort to complete the activity 2 The helper provides more than half the effort to complete the activity 1 Dependent. The helper does all the effort to complete an activity 7 Patient refused to complete or attempt activity 9 The patient did not perform the activity before the current illness or injury 88 Not attempted due to Medical conditions or safety concerns Transfers (B, C, W/C) (FIM): 6 Scootin Rollin Supine to/from Sit: 6 Sit to/from Stand: 6 Bed to/from Chair: 6 Weight Bearing Full Weight Bearing Full Weight Bearing Gait Training Gait (FIM): 6 Distance: 175'x2 Gait Level of Assist: 6 Gait Assistive Device: FWW Patient ambulates slowly but without LOB or unsteadiness. Exercises NuStep Minutes: 15 NuStep Workload: 4 Treatments bed mobility and transfers, ambulation, functional strengthening Assessment Current Status: Fair Progress improving strength and endurance PT Short Term Goals Short Term Goals Time Frame: July 28, 2018 Transfers (B,C,W/C) (FIM): 5 (met) Gait (FIM): 5 (met) Gait Distance Comment: 200' Gait Level of Assist: 5 Gait Assistive Device: Walker 4 Wheeled, Cane Small Base Quad PT Halfway Goals Hotel Maintenance Worker Goals PT Halfway Goals Time Frame: August 11, 2018 Transfers (B,C,W/C) (FIM): 6 Sit to Lying (QC): 6 Lying-Sitting on Side/Bed(QC): 6 Sit to Stand (QC): 6 Rollin Roll Left to Right (QC): 6 Chair/Jos-oi-Hsyfb Xfer(QC): 6 Car Transfer (QC): 6 Gait (FIM): 6 Distance: 300' Walk 10 feet (QC): 6 Walk 10ft-Uneven Surface(QC): 6 Walk 50ft with 2 Turns (QC): 6 Walk 150 ft (QC): 6 Gait Level of Assist: 6 Gait Assistive Device: Walker 4 Wheeled, Cane Small Base Quad Stairs (FIM): 5 # of Steps: 12 1 Step (curb) (QC): 4 4 Steps (QC): 4 12 Steps (QC): 4 Stairs Level Of Assist: 5 PT Plan Problem List Problem List: Activity Tolerance, Functional Strength, Safety, Balance, Gait, Transfer Treatment/Plan Treatment Plan: Continue Plan of Care Treatment Plan: Bed Mobility, Education, Functional Activity Ghada, Functional Strength, Group Therapy, Gait, Safety, Therapeutic Exercise, Transfers Treatment Duration: August 11, 2018 Frequency: At least 5 of 7 days/Wk (IRF) Estimated Hrs Per Day: 1.5 hours per day Patient and/or Family Agrees t: Yes Safety Risks/Education Patient Education: Gait Training, Transfer Techniques, Correct Positioning, Safety Issues Teaching Recipient: Patient Teaching Methods: Demonstration, Discussion Response to Teaching: Reinforcement Needed Time/GCodes Time In: 1420 Time Out: 1505 Total Billed Treatment Time: 45 Total Billed Treatment 1 visit EX 15' GT 30' ROSALES [facility] PT July 29, 2018 15:07
[2018-07-29] MEDS: warFARin 3 MG (COUMADIN) TAB PO SCH (17:03)
[2018-07-29 17:14] VITALS: BP 106/63
[2018-07-29] MEDS: doxAzosin 1 MG (CARDURA) TAB PO SCH (20:07)
[2018-07-29] MEDS: ATORVASTATIN 20 MG (LIPITOR) TABLET PO SCH (20:07)
[2018-07-30] MEDS: HYDROcodone/APAP 5 MG/325 MG (LORTAB) TAB PO PRN ×3 (00:29→21:35)
[2018-07-30 05:23] VITALS: BP 106/64
[2018-07-30] MEDS: CATHETER FLUSH 10 ML SYR IV SCH ×3 (06:17→20:14)
[2018-07-30] MEDS: predniSONE 10 MG TAB PO SCH (06:17)
[2018-07-30 07:08] LABS: INR 2.7 (0.8-1.4); PROTHROMBIN TIME PATIENT 30.3 SEC (12.2-14.7)
[2018-07-30] MEDS: ASPIRIN 81 MG CHEW (CHILDREN'S ASA) PO SCH (08:02)
[2018-07-30] MEDS: GABAPENTIN 100 MG (NEURONTIN) CAP PO SCH ×3 (08:02→20:14)
[2018-07-30] MEDS: ALLOPURINOL 100 MG (ZYLOPRIM) TAB PO SCH (08:02)
[2018-07-30] MEDS: FLUoxetine HCL 20 MG (PROzac) CAP PO SCH (08:03)
[2018-07-30] MEDS: NICOTINE 7 MG (NICODERM) PATCH TD SCH (08:03)
[2018-07-30] MEDS: meTOproloL SUCCINATE 50 MG (TOPROL XL) TAB PO SCH (08:03)
[2018-07-30] MEDS: amLODIPine 5 MG (NORVASC) TAB PO SCH (08:03)
[2018-07-30] MEDS: PATCH REMOVAL TP SCH (08:17)
[2018-07-30] MEDS: HYDROXYCHLOROQUINE 200 MG (PLAQUENIL) TAB PO SCH (08:18)
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
--- NOTE | 2018-07-30 08:55 | PM&R Progress Note ---
Subjective HPI/CC On Admission Date Seen by Provider: July 30, 2018 Time Seen by Provider: 08:30 Chief compliant: Stroke HPI: This is a 73yoWF that I have taken care of for the past week for [facility] who presented with a completed stroke with a right occipital infarct that was noted and confirmed on CT scan, did not even require an MRI and suffered a significant amount of left peripheral vision loss who presented to inpatient rehab in need of intensive therapy for fall prevention and to work on balance and compensatory mechanisms to make up for the loss of vision on the left peripherally. Barriers to returning home will be safely ambulating with assistive devices along with family support in addition we will work on Coumadin therapy since she has been subtherapeutic and super therapeutic on labs with 3.7 INR today in addition noted a creatinine bump at 1.37 so will need close follow up in inpatient rehab for blood pressure management, Coumadin level evaluation, and monitoring blood pressure management along with cardiology care. Her prior level of functioning was independent without a walker but she did suffer falls at home even prior to the stroke. 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 Subjective/Events-last exam Pt doing well DC planned for tomorrow INR is 2.7 today on 3mg of Coumadin Still remains a fall risk Uses a walker and a cane Tao any significant pain other than her chronic pain issues Chronic diarrhea continues Checked labs and meds. Conferred with RN. Reviewed therapy notes. Review of Systems General: Fatigue Objective Exam Vital Signs Vital Signs Date Time Temp Pulse Resp B/P (MAP) Pulse Ox O2 Delivery O2 Flow Rate FiO2 07/30/18 16:36 97.4 58 16 112/63 (79) 96 Room Air Capillary Refill : General Appearance: No Apparent Distress, WD/WN, Chronically ill, Obese HEENT: PERRL/EOMI, Normal ENT Inspection, Pharynx Normal, Moist Mucous Membranes, Other Neck: Full Range of Motion, Normal Inspection, Non Tender, Supple Respiratory: Chest Non Tender, Lungs Clear, Normal Breath Sounds, No Accessory Muscle Use, No Respiratory Distress, Decreased Breath Sounds Cardiovascular: Regular Rate, Rhythm, No Edema, No Gallop, No JVD, No Murmur Gastrointestinal: Normal Bowel Sounds, No Organomegaly, No Pulsatile Mass, Non Tender, Soft Back: Normal Inspection, No CVA Tenderness, No Vertebral Tenderness Extremity: Normal Capillary Refill, Normal Inspection, Normal Range of Motion, Non Tender, No Calf Tenderness, No Pedal Edema Neurologic/Psychiatric: Alert, Oriented x3, Normal Mood/Affect, quality assurance assistant II-XII Norm as Tested, Abnormal Gait, Motor Weakness Skin: Normal Color, Warm/Dry Lymphatic: No Adenopathy Results/Procedures Lab Patient resulted labs reviewed. FIM Transfers Therapy Code Descriptions/Definitions Functional [place] Measure: 0=Not Assessed/NA 4=Minimal Assistance 1=Total Assistance 5=Supervision or Setup 2=Maximal Assistance 6=Modified [place] 3=Moderate Assistance 7=Complete [place] Therapy Quality Codes: 6 Independent with activity with or without an assistive device 5 Patient requires set up or clean up by helper. Patient completes activity by themselves 4 Supervision or touching assist (CGA). [place] provide cues , steadying assist 3 The helper provides less than half the effort to complete the activity 2 The helper provides more than half the effort to complete the activity 1 Dependent. The helper does all the effort to complete an activity 7 Patient refused to complete or attempt activity 9 The patient did not perform the activity before the current illness or injury 88 Not attempted due to Medical conditions or safety concerns Mental Status/Objective Comprehension: 7 Expression: 7 Social Interaction: 7 Problem Solvin Memory: 7 ADL-Treatment Feedin (dentures) Eating (QC): 6 Groomin (standing at sink indep ) Oral Hygiene (QC): 6 Bathin (use of shower chair, and GB to [facility] hwile standing. ) Bathing Location: L Arm, R Arm, L Upper Leg, R Upper Leg, L Lower Leg ( including foot), R Lower Leg (including foot), Chest, Abdomen, Buttocks, Perineal Area Shower/Bathe Self (QC): 6 Upper Extremity Dressin Upper Body Dressing (QC): 6 Lower Extremity Dressin (underpants, pants, Ajay shoes while sitting/ standing. no LOB noted ) Lower Body Dressing (QC): 6 On/Off Footwear (QC): 6 Toiletin (3/3 toileting tasks. no safety concerns, ) Toileting Hygiene (QC): 6 Toilet/Commode Transfer: 6 Toilet Transfer (QC): 6 (use of RW) Tub: 6 (tub trnasfers bench, use of RW) Shower: 6 (shower chair, use of RW) Assessment/Plan Assessment and Plan Assess & Plan/Chief Complaint (1) CVA (cerebral vascular accident) with loss of left peripheral vision Status: Acute (2) Lupus (systemic lupus erythematosus) Status: Chronic (3) Smoker Status: Chronic (4) Hypertension Status: Chronic (5) Hyperlipidemia Status: Chronic (6) Anticoagulated on Coumadin Status: Chronic (7) Thrombosis, renal vein Status: Chronic (8) Falls at home prior to CVA Plan: Smoking cessation counseled every day IRF protocols to be maintained Coumadin management Cardiology is appreciated ASA Statin Fall risk Balance focus Hypertension close monitoring Monitor INR closely Monitor left great toe pain DC Friday tomorrow (1) CVA (cerebral vascular accident) (2) Abdominal wall pain (3) Hyperlipidemia (4) Hypertension (5) Lupus (systemic lupus erythematosus) (6) Anticoagulated on Coumadin (7) Thrombosis, renal vein (8) UTI (urinary tract infection) (9) DVT prophylaxis (10) Ingrown left greater toenail (11) Smoker SERINA DEL REAL DO July 30, 2018 08:55
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
--- NOTE | 2018-07-30 11:38 | Progress Note-Cardiology ---
Cardiology SOAP Progress Note Subjective: No cp or palp or syncope Mod exertional shortness of breath, improving Gen weakness, improving Objective: I&O/Vital Signs 07/30/18 05:23 Temp 97.7 Pulse 65 Resp 18 B/P (MAP) 106/64 (78) Pulse Ox 98 O2 Delivery Room Air 07/30/18 00:00 Intake Total 600 ml Balance 600 ml Weight (Pounds): 166 Weight (Ounces): 2.0 Weight (Calculated Kilograms): 75.268370 Constitutional: AAO x 3, well-developed, well-nourished Respiratory: chest expansion is symmetric, chest is bilaterally symmetric, lungs clear to auscultation, other (prolonged expiratory phase) Cardiovascular: regular rate-rhythm; No JVD; S1 and S2 Gastrointestional: No tender; soft, round, audible bowel sounds Extremities: other ((RLE visibly larger than left (reports chronic)), no lower extremity edema bilateral Neurologic/Psychiatric: other ((L-sided visual field cut in both eyes)), grossly intact, power is 5/5 both on sides Skin: No rash, No ulcerations Results/Procedures: Labs Laboratory Tests 07/30/18 05:49: Prothrombin Time 30.3H, INR Comment 2.7H A/P: Assessment: Hypertension CVA with L homonymous hemianopsia - small to moderate-sized area of acute/ subacute infarct involving the right occipital lobe. There is no evidence of intra-cranial hemorrhage, brain herniation, or midline shift on CT of the head on 07-15-18. Management of CVA is by Dr Mosquera Carotid artery disease - Per u/s of 07-15-18, there is mod bilat carotid arterial plaque, worse (50-70% stenosis) on the right UTI - management by Dr Mosquera Cardiac cath of July [address] Olvera showed multi-vessel dz - 60-70% mid-LAD involving origin of relatively sm caliber diag branch. 50-60% L Cx. RCA - large and dominant with 50% stenosis mid-vessel and 60% distal. LVEF 60%. Referred to Dr. Patel of cardiothoracic services at [facility] - medical tx advised at that time - has had no f/u Echo of 07/16/18: LVEF 45-50%, mod conc LVH, grade 1 [place] dysfxn, PASP 25-30 mmHg H/O cervical cancer for which she has undergone chemo (last tx 12 years ago) H/O sleep apnea for which she is non-compliant with CPAP tx HLD - statin tx followed by her PCP H/O sinus bradycardia and V-tach during ED visit in November 2017 - transferred to [facility] at that time Chronic diarrhea Reports chronic lymphedema to right leg Depression Lupus Gout Family h/o CAD (son has had coronary stenting; mother has had CVA) Plan: Reduce warfarin due to rising INR Monitor labs, including INR Outpt f/u advised DIMITRI OLVERA MD FACP FACC CCDS July 30, 2018 11:38
--- NOTE | 2018-07-30 12:20 | Physical Therapy Daily Note ---
PT Daily Note-Current Subjective Pt sitting in recliner upon arrival. Pt agrees to PT. Pt has Nurse address skin tear on R hand from pt removing own medical tape. Mental Status Patient Orientation: Person, Place, Time, Situation Transfers Therapy Code Descriptions/Definitions Functional [place] Measure: 0=Not Assessed/NA 4=Minimal Assistance 1=Total Assistance 5=Supervision or Setup 2=Maximal Assistance 6=Modified [place] 3=Moderate Assistance 7=Complete [place] Therapy Quality Codes: 6 Independent with activity with or without an assistive device 5 Patient requires set up or clean up by helper. Patient completes activity by themselves 4 Supervision or touching assist (CGA). [place] provide cues , steadying assist 3 The helper provides less than half the effort to complete the activity 2 The helper provides more than half the effort to complete the activity 1 Dependent. The helper does all the effort to complete an activity 7 Patient refused to complete or attempt activity 9 The patient did not perform the activity before the current illness or injury 88 Not attempted due to Medical conditions or safety concerns Transfers (B, C, W/C) (FIM): 6 Scootin Rollin Roll Left to Right (QC): 6 Supine to/from Sit: 6 Sit to/from Stand: 6 Sit to Lying (QC): 6 Sit to Stand (QC): 6 Chair/Hsg-vw-Kcdwf Xfer(QC): 6 Bed to/from Chair: 6 Car Transfer (QC): 6 Weight Bearing Full Weight Bearing Full Weight Bearing Gait Training Does the Patient Walk?: Yes Gait (FIM): 6 Distance (FIM): 3=150 ft Distance: 150' Walk 10 feet (QC): 6 Walk 50 ft with 2 Turns(QC): 6 Walk 150 ft (QC): 6 Walking 10ft/uneven surface-QC: 6 Gait Level of Assist: 6 Gait Persons Needed: 1 Gait Assistive Device: FWW Pt uses FWW for safety, not as stable with LBQC. Wheelchair Training Does the Pt Use a Wheelchair?: No Stair Training Stair Training: Handrails/: 2 handrails Stairs (FIM): 6 #of Steps: 12 1 Step (curb) (QC): 6 4 Steps (QC): 6 12 Steps (QC): 6 Stairs: Pattern: Step to Level of Assist: 6 Balance Picking up an Object (QC): 88 Special Test Comments Pt does not attempt for safety, uses metal drawer at home when needed. Exercises Seated Therapy Exercises: Ankle pumps, Long arc quads, Hip flexion, Kicking activity Seated Reps: 15 Standing: Hip Abduction, Hamstring curls, Heel/toe raises, Marching, Mini squats, Weight shifts Standing Reps: 15 Treatments Pt transfers from recliner to standing using FWW. Pt uses restroom before ambulating in hallway. Pt completes Seated Ex in chair, short RB then Standing Ex at //bars. Pt returns to room at end of tx to rest at EOB. Pt has all needs met. Assessment Current Status: Good Progress Pt tolerates tx well and anticipates tomorrow's D/C (07/31) PT Short Term Goals Short Term Goals Time Frame: July 28, 2018 Transfers (B,C,W/C) (FIM): 5 (met) Gait (FIM): 5 (met) Gait Distance Comment: 200' Gait Level of Assist: 5 Gait Assistive Device: Walker 4 Wheeled, Cane Small Base Quad PT Fdc Goals Fiscal Officer Goals PT Fdc Goals Time Frame: August 11, 2018 Transfers (B,C,W/C) (FIM): 6 Sit to Lying (QC): 6 Lying-Sitting on Side/Bed(QC): 6 Sit to Stand (QC): 6 Rollin Roll Left to Right (QC): 6 Chair/Cfo-rp-Inetm Xfer(QC): 6 Car Transfer (QC): 6 Gait (FIM): 6 Distance: 300' Walk 10 feet (QC): 6 Walk 10ft-Uneven Surface(QC): 6 Walk 50ft with 2 Turns (QC): 6 Walk 150 ft (QC): 6 Gait Level of Assist: 6 Gait Assistive Device: Walker 4 Wheeled, Cane Small Base Quad Stairs (FIM): 5 # of Steps: 12 1 Step (curb) (QC): 4 4 Steps (QC): 4 12 Steps (QC): 4 Stairs Level Of Assist: 5 PT Plan Problem List Problem List: Activity Tolerance, Safety, Balance Treatment/Plan Treatment Plan: Continue Plan of Care Treatment Plan: Bed Mobility, Education, Functional Activity Ghada, Functional Strength, Group Therapy, Gait, Safety, Therapeutic Exercise, Transfers Treatment Duration: August 11, 2018 Frequency: At least 5 of 7 days/Wk (IRF) Estimated Hrs Per Day: 1.5 hours per day Patient and/or Family Agrees t: Yes Safety Risks/Education Patient Education: Gait Training, Transfer Techniques, Correct Positioning, Safety Issues Teaching Recipient: Patient Teaching Methods: Discussion Response to Teaching: Verbalize Understanding Time/GCodes Time In: 1000 Time Out: 1100 Total Billed Treatment Time: 60 Total Billed Treatment 1, GT (15m), FA (15m) & EX x2 (30m) G Codes Necessary: SERENITY Diaz MACHINE BANDER AND CELLOPHANER July 30, 2018 12:20
--- NOTE | 2018-07-30 15:35 | Physical Therapy Daily Note ---
PT Daily Note-Current Subjective Pt laying Supine in bed upon arrival. Pt agrees to PT. Mental Status Patient Orientation: Person, Place, Time, Situation Transfers Therapy Code Descriptions/Definitions Functional Tift Measure: 0=Not Assessed/NA 4=Minimal Assistance 1=Total Assistance 5=Supervision or Setup 2=Maximal Assistance 6=Modified Tift 3=Moderate Assistance 7=Complete Tift Therapy Quality Codes: 6 Independent with activity with or without an assistive device 5 Patient requires set up or clean up by helper. Patient completes activity by themselves 4 Supervision or touching assist (CGA). [place] provide cues , steadying assist 3 The helper provides less than half the effort to complete the activity 2 The helper provides more than half the effort to complete the activity 1 Dependent. The helper does all the effort to complete an activity 7 Patient refused to complete or attempt activity 9 The patient did not perform the activity before the current illness or injury 88 Not attempted due to Medical conditions or safety concerns Scootin Supine to/from Sit: 6 Sit to/from Stand: 6 Sit to Stand (QC): 6 Weight Bearing Full Weight Bearing Full Weight Bearing Gait Training Does the Patient Walk?: Yes Gait (FIM): 6 Distance (FIM): 3=150 ft Distance: 150' Walk 10 feet (QC): 6 Walk 50 ft with 2 Turns(QC): 6 Walk 150 ft (QC): 6 Gait Level of Assist: 6 Gait Persons Needed: 1 Gait Assistive Device: FWW Wheelchair Training Does the Pt Use a Wheelchair?: No Exercises Standing: Hip Abduction, Heel/toe raises, Marching, Mini squats, Weight shifts Standing Reps: 15 NuStep Minutes: 12 NuStep Workload: 5 Treatments Pt transfers from bed to standing. Pt uses restroom then ambulates in hallway. Pt uses NuStep for 12m at WL 5 followed by short RB. Pt completes Standing Ex at //bars. Pt returns to room at end of tx with all needs met. Assessment Current Status: Good Progress Pt tolerates tx well and D/C tomorrow (07/31). PT Short Term Goals Short Term Goals Time Frame: July 28, 2018 Transfers (B,C,W/C) (FIM): 5 (met) Gait (FIM): 5 (met) Gait Distance Comment: 200' Gait Level of Assist: 5 Gait Assistive Device: Walker 4 Wheeled, Cane Small Base Quad PT Forging Press Operator Goals Forging Press Operator Goals PT Longterm Goals Time Frame: August 11, 2018 Transfers (B,C,W/C) (FIM): 6 Sit to Lying (QC): 6 Lying-Sitting on Side/Bed(QC): 6 Sit to Stand (QC): 6 Rollin Roll Left to Right (QC): 6 Chair/Don-qo-Snyly Xfer(QC): 6 Car Transfer (QC): 6 Gait (FIM): 6 Distance: 300' Walk 10 feet (QC): 6 Walk 10ft-Uneven Surface(QC): 6 Walk 50ft with 2 Turns (QC): 6 Walk 150 ft (QC): 6 Gait Level of Assist: 6 Gait Assistive Device: Walker 4 Wheeled, Cane Small Base Quad Stairs (FIM): 5 # of Steps: 12 1 Step (curb) (QC): 4 4 Steps (QC): 4 12 Steps (QC): 4 Stairs Level Of Assist: 5 PT Plan Problem List Problem List: Activity Tolerance, Balance Treatment/Plan Treatment Plan: Continue Plan of Care Treatment Plan: Bed Mobility, Education, Functional Activity Ghada, Functional Strength, Group Therapy, Gait, Safety, Therapeutic Exercise, Transfers Treatment Duration: August 11, 2018 Frequency: At least 5 of 7 days/Wk (IRF) Estimated Hrs Per Day: 1.5 hours per day Patient and/or Family Agrees t: Yes Safety Risks/Education Patient Education: Gait Training, Correct Positioning, Safety Issues Teaching Recipient: Patient Teaching Methods: Discussion Response to Teaching: Verbalize Understanding Time/GCodes Time In: 1400 Time Out: 1430 Total Billed Treatment Time: 30 Total Billed Treatment 1, GT (10m) & EX (20m) G Codes Necessary: SERENITY Diaz MOLDING PRESS OPERATOR July 30, 2018 15:35
[2018-07-30 16:36] VITALS: BP 112/63
[2018-07-30] MEDS ORDERED: warFARin 2.5 MG (COUMADIN) TAB PO SCH (18:00)
[2018-07-30] MEDS: ATORVASTATIN 20 MG (LIPITOR) TABLET PO SCH (20:14)
[2018-07-30] MEDS: doxAzosin 1 MG (CARDURA) TAB PO SCH (20:14)
[2018-07-31 06:01] VITALS: BP 131/74
[2018-07-31] MEDS: CATHETER FLUSH 10 ML SYR IV SCH (06:18)
[2018-07-31] MEDS: predniSONE 10 MG TAB PO SCH (06:18)
[2018-07-31] MEDS: HYDROcodone/APAP 5 MG/325 MG (LORTAB) TAB PO PRN (06:33)
[2018-07-31 07:42] LABS: INR 2.9 (0.8-1.4); PROTHROMBIN TIME PATIENT 31.5 SEC (12.2-14.7)
--- NOTE | 2018-07-31 08:54 | Therapy Team Discharge Summary ---
Therapy Discharge Summary Discharge Recommendations Date of Discharge Therapy D/C Recommendations: Home w/ Family Support Physical Therapy Patient came to rehab post CVA. Upon evaluation patient performed bed mobility with SBA, supine <-> sit with SBA, sit <-> stand with CGA, transfers with CGA, car transfer CGA, ambulated 150' with a quad cane with CGA (including 50' with at least 2 turns of 90 degrees and 10' over an uneven surface), and went up and down 4 steps using 2 handrails with CGA. Patient has been performing bed mobility and transfer training, balance and endurance training, functional strengthening, stair training, gait training, and education. She has made good progress and has met all of her long term care pharmacist goals except for distance of ambulation. Now, patient performs bed mobility and transfers with mod I, ambulates 150' with a rolling walker with mod I (including 50' with at least 2 turns of 90 degrees and 10' over an uneven surface), and can go up and down 12 steps using 2 handrails with mod I. Patient is discharging from this facility today and will be discharged from PT at this time. Occupational Therapy Impaired Coordination PT Corn Husk Baler Goals Skilled Nursing Goals PT Corn Husk Baler Goals Time Frame: August 11, 2018 Transfers (B,C,W/C) (FIM): 6 Roll Left to Right (QC): 6 Sit to Lying (QC): 6 Lying-Sitting on Side/Bed(QC): 6 Sit to Stand (QC): 6 Chair/Jdt-fk-Wvnib Xfer(QC): 6 Car Transfer (QC): 6 Gait (FIM): 6 Distance: 300' Walk 10 feet (QC): 6 Walk 10ft-Uneven Surface(QC): 6 Walk 50ft with 2 Turns (QC): 6 Walk 150 ft (QC): 6 Gait Level of Assist: 6 Gait Assistive Device: Walker 4 Wheeled, Cane Small Base Quad Stairs (FIM): 5 # of Steps: 12 1 Step (curb) (QC): 4 4 Steps (QC): 4 12 Steps (QC): 4 Stairs Level Of Assist: 5 OT Corn Husk Baler Goals Skilled Nursing Goals Eating (FIM): 6 Eating (QC): 6 Oral Hygiene (QC): 7 Grooming(FIM): 6 Bathing(FIM): 6 Bathing Location: L Arm, R Arm, L Upper Leg, R Upper Leg, L Lower Leg ( including foot), R Lower Leg (including foot), Chest, Abdomen, Buttocks, Perineal Area Shower/Bathe Self (QC): 6 Upper Body Dressing(FIM): 7 Upper Body Dressing (QC): 6 Lower Body Dressing(FIM): 6 Lower Body Dressing (QC): 6 On/Off Footwear (QC): 6 Toileting(FIM): 6 Toileting Hygiene (QC): 6 Transfers (B,C,W/C) (FIM): 6 Toilet/Commode Transfer(FIM): 6 Toilet/Commode Transfer (QC): 6 Tub Transfer(FIM): 6 Shower Transfer(FIM): 6 1=Demonstrate adherence to instructed precautions during ADL tasks. 2=Patient will verbalize/demonstrate understanding of assistive devices/ modifications for ADL. 3=Patient will improve strength/tolerance for activity to enable patient to perform ADL's. ROSALES CHI PT July 31, 2018 08:54
[2018-07-31] MEDS ORDERED: ASPI-999 PO (08:59)
[2018-07-31] MEDS ORDERED: AMLO5TAB9 PO (08:59)
[2018-07-31] MEDS ORDERED: METO-370 PO (08:59)
[2018-07-31] MEDS ORDERED: WARF2.5T PO (08:59)
[2018-07-31] MEDS ORDERED: DOXA1TAB2 PO (08:59)
[2018-07-31] MEDS ORDERED: VARE0.5T PO (08:59)
[2018-07-31] MEDS ORDERED: ACHD5005 PO (08:59)
--- NOTE | 2018-07-31 09:01 | Discharge Summary ---
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 (2) Abdominal wall pain (3) Hyperlipidemia (4) Hypertension (5) Lupus (systemic lupus erythematosus) (6) Anticoagulated on Coumadin (7) Thrombosis, renal vein (8) UTI (urinary tract infection) (9) DVT prophylaxis (10) Ingrown left greater toenail (11) Smoker Discharge Summary Discharge Physical Examination Allergies: Coded Allergies: No Known Drug Allergies (Verified , 10/21/08) Vitals & I&Os Vital Signs Date Time Temp Pulse Resp B/P (MAP) Pulse Ox O2 Delivery O2 Flow Rate FiO2 07/31/18 12:00 60 18 116/62 98 Room Air 07/31/18 06:01 97.9 General Appearance: Alert, Oriented X3, Cooperative HEENT: Atraumatic, PERRLA Respiratory: Clear to Auscultation, Normal Air Movement Cardiovascular: Regular Rate, Normal S1, Normal S2 Neuro: Normal Gait, Normal Speech, Strength at 5/5 X4 Ext Psych/Mental Status: Mental Status NL, Mood NL Hospital Course Was the Problem List Reviewed?: Yes Hospital course: patient had an overall very successful 11 day hospital course while in IRF. Patient was admitted after approval from insurance for intensive rehab due to occipital CVA with loss of balance and left peripheral vision. INR remained difficult to manage and Dr Olvera was able to dose Coumadin to maintain stable 2-3 INR. BP remained difficult to treat and multiple meds were started with good results. Patient was independent prior to CVA and was able to ambulate with cane and continue PT as an outpatient. Overall dramatic improvement in resolving deficits and able to compensate for the CVA residual very well. Labs (last 24 hrs) Laboratory Tests 07/22/18 06:45: White Blood Count 8.5, Red Blood Count 4.03L, Hemoglobin 11.3L, Hematocrit 36, Mean Corpuscular Volume 90, Mean Corpuscular Hemoglobin 28, Mean Corpuscular Hemoglobin Concent 31L, Red Cell Distribution Width 15.6H, Platelet Count 298, Mean Platelet Volume 10.4, Prothrombin Time 31.5H, INR Comment 2.9H, Sodium Level 141, Potassium Level 3.9, Chloride Level 107, Carbon Dioxide Level 22, Anion Gap 12, Blood Urea Nitrogen 27H, Creatinine 1.40H, Estimat Glomerular Filtration Rate 37, BUN/Creatinine Ratio 19, Glucose Level 84, Calcium Level 9.0 , Corrected Calcium 9.3, Total Bilirubin 0.4, Aspartate Amino Transf (AST/SGOT) 17, Alanine Aminotransferase (ALT/SGPT) 16, Alkaline Phosphatase 70, Total Protein 5.9L, Albumin 3.6 07/23/18 12:22: Prothrombin Time 26.9H, INR Comment 2.4H 07/24/18 05:55: Prothrombin Time 28.9H, INR Comment 2.6H 07/25/18 06:28: Prothrombin Time 35.6H, INR Comment 3.4H 07/26/18 05:41: Prothrombin Time 41.6H, INR Comment 4.1H 07/27/18 05:10: Prothrombin Time 30.2H, INR Comment 2.7H, White Blood Count 8.7, Red Blood Count 3.58L, Hemoglobin 10.1L, Hematocrit 32L, Mean Corpuscular Volume 90, Mean Corpuscular Hemoglobin 28, Mean Corpuscular Hemoglobin Concent 32, Red Cell Distribution Width 15.7H, Platelet Count 279, Mean Platelet Volume 10.3, Neutrophils (%) (Auto) 63, Lymphocytes (%) (Auto) 26, Monocytes (%) (Auto) 9, Eosinophils (%) (Auto) 2, Basophils (%) (Auto) 0, Neutrophils # (Auto) 5.4, Lymphocytes # (Auto) 2.3, Monocytes # (Auto) 0.8, Eosinophils # (Auto) 0.2, Basophils # (Auto) 0.0, Sodium Level 141, Potassium Level 3.8, Chloride Level 109H, Carbon Dioxide Level 23, Anion Gap 9, Blood Urea Nitrogen 28H, Creatinine 1.23, Estimat Glomerular Filtration Rate 43, BUN/Creatinine Ratio 23, Glucose Level 79, Calcium Level 8.9, Corrected Calcium 9.4, Total Bilirubin 0.4, Aspartate Amino Transf (AST/SGOT) 17, Alanine Aminotransferase (ALT/SGPT) 14, Alkaline Phosphatase 60, Total Protein 5.6L, Albumin 3.4 07/28/18 07:00: Prothrombin Time 24.6H, INR Comment 2.1H 07/29/18 06:45: Prothrombin Time 25.6H, INR Comment 2.2H 07/30/18 05:49: Prothrombin Time 30.3H, INR Comment 2.7H 07/31/18 07:15: Prothrombin Time 31.5H, INR Comment 2.9H Pending Labs Laboratory Tests 07/22/18 06:45: White Blood Count 8.5, Red Blood Count 4.03, Hemoglobin 11.3, Hematocrit 36, Mean Corpuscular Volume 90, Mean Corpuscular Hemoglobin 28, Mean Corpuscular Hemoglobin Concent 31, Red Cell Distribution Width 15.6, Platelet Count 298, Mean Platelet Volume 10.4, Prothrombin Time 31.5, INR Comment 2.9, Sodium Level 141, Potassium Level 3.9, Chloride Level 107, Carbon Dioxide Level 22, Anion Gap 12, Blood Urea Nitrogen 27, Creatinine 1.40, Estimat Glomerular Filtration Rate 37, BUN/Creatinine Ratio 19, Glucose Level 84, Calcium Level 9.0, Corrected Calcium 9.3, Total Bilirubin 0.4, Aspartate Amino Transf (AST/SGOT) 17 , Alanine Aminotransferase (ALT/SGPT) 16, Alkaline Phosphatase 70, Total Protein 5.9, Albumin 3.6 07/23/18 12:22: Prothrombin Time 26.9, INR Comment 2.4 07/24/18 05:55: Prothrombin Time 28.9, INR Comment 2.6 07/25/18 06:28: Prothrombin Time 35.6, INR Comment 3.4 07/26/18 05:41: Prothrombin Time 41.6, INR Comment 4.1 07/27/18 05:10: Prothrombin Time 30.2, INR Comment 2.7, White Blood Count 8.7, Red Blood Count 3.58, Hemoglobin 10.1, Hematocrit 32, Mean Corpuscular Volume 90, Mean Corpuscular Hemoglobin 28, Mean Corpuscular Hemoglobin Concent 32, Red Cell Distribution Width 15.7, Platelet Count 279, Mean Platelet Volume 10.3, Neutrophils (%) (Auto) 63, Lymphocytes (%) (Auto) 26, Monocytes (%) (Auto) 9, Eosinophils (%) (Auto) 2, Basophils (%) (Auto) 0, Neutrophils # (Auto) 5.4, Lymphocytes # (Auto) 2.3, Monocytes # (Auto) 0.8, Eosinophils # (Auto) 0.2, Basophils # (Auto) 0.0, Sodium Level 141, Potassium Level 3.8, Chloride Level 109, Carbon Dioxide Level 23, Anion Gap 9, Blood Urea Nitrogen 28, Creatinine 1.23, Estimat Glomerular Filtration Rate 43, BUN/Creatinine Ratio 23, Glucose Level 79, Calcium Level 8.9, Corrected Calcium 9.4, Total Bilirubin 0.4, Aspartate Amino Transf (AST/SGOT) 17, Alanine Aminotransferase (ALT/SGPT) 14, Alkaline Phosphatase 60, Total Protein 5.6, Albumin 3.4 07/28/18 07:00: Prothrombin Time 24.6, INR Comment 2.1 07/29/18 06:45: Prothrombin Time 25.6, INR Comment 2.2 07/30/18 05:49: Prothrombin Time 30.3, INR Comment 2.7 07/31/18 07:15: Prothrombin Time 31.5, INR Comment 2.9 Discharge Home Medications: Active Scripts Active Chantix (Varenicline Tartrate) 0.5 Mg Tablet 0.5 Mg PO BID Hydrocodone/Acetaminophen 5/325mg Tablet (Acetaminophen/Hydrocodone Bitart) 1 Tab Tab 1 Tab PO TID PRN Aspirin 81 Mg Tab.chew 81 Mg PO DAILY Amlodipine Besylate 5 Mg Tablet 10 Mg PO DAILY Metoprolol Succinate 50 Mg Tab.er.24h 50 Mg PO DAILY Doxazosin Mesylate 1 Mg Tablet 1 Mg PO HS Coumadin (Warfarin Sodium) 2.5 Mg Tablet 2.5 Mg PO DAILY@1800 Reported Atorvastatin Calcium 20 Mg Tablet 20 Mg PO HS LAST FILLED #30 01-30-18 Prozac (Fluoxetine HCl) 40 Mg Capsule 40 Mg PO DAILY Hydrocodone-Acetamin 5-325 mg (Hydrocodone/Acetaminophen) 1 Each Tablet 1 Tab PO TID PRN Ondansetron HCl 4 Mg Tablet 4 Mg PO Q6H PRN Diphenoxylate-Atrop 2.5-0.025 (Diphenoxylate HCl/Atropine) 1 Each Tablet 1 Tab PO Q6H PRN Hydroxychloroquine Sulfate 200 Mg Tablet 400 Mg PO DAILY TAKES 2 (200MG) TABLETS Allopurinol 100 Mg Tablet 100 Mg PO DAILY Gabapentin 100 Mg Capsule 100 Mg PO TID Prednisone 10 Mg Tab 10 Mg PO DAILY Instructions to patient/family Please see electronic discharge instructions given to patient. Diagnosis/Problems Diagnosis/Problems (1) CVA (cerebral vascular accident) Status: Acute (2) Abdominal wall pain Status: Acute (3) Hyperlipidemia Status: Chronic (4) Hypertension Status: Chronic (5) Lupus (systemic lupus erythematosus) Status: Chronic (6) Anticoagulated on Coumadin Status: Chronic (7) Thrombosis, renal vein Status: Chronic (8) UTI (urinary tract infection) Status: Acute (9) DVT prophylaxis (10) Ingrown left greater toenail (11) Smoker Status: Chronic Clinical Quality Measures DVT/VTE Risk/Contraindication: Risk Factor Score Per Nursin RFS Level Per Nursing on Admit: 4+=Very High SERINA DEL REAL DO July 31, 2018 09:01
[2018-07-31] MEDS: FLUoxetine HCL 20 MG (PROzac) CAP PO SCH (09:08)
[2018-07-31] MEDS: amLODIPine 5 MG (NORVASC) TAB PO SCH (09:08)
[2018-07-31] MEDS: ALLOPURINOL 100 MG (ZYLOPRIM) TAB PO SCH (09:08)
[2018-07-31] MEDS: GABAPENTIN 100 MG (NEURONTIN) CAP PO SCH (09:09)
[2018-07-31] MEDS: PATCH REMOVAL TP SCH (09:09)
[2018-07-31] MEDS: meTOproloL SUCCINATE 50 MG (TOPROL XL) TAB PO SCH (09:09)
[2018-07-31] MEDS: NICOTINE 7 MG (NICODERM) PATCH TD SCH (09:09)
[2018-07-31] MEDS: ASPIRIN 81 MG CHEW (CHILDREN'S ASA) PO SCH (09:09)
[2018-07-31] MEDS: HYDROXYCHLOROQUINE 200 MG (PLAQUENIL) TAB PO SCH (09:09)
--- NOTE | 2018-07-31 09:36 | Progress Note-Cardiology ---
Cardiology SOAP Progress Note Subjective: No new symptoms No cp or palp or syncope or shortness of breath at rest Objective: I&O/Vital Signs 07/31/18 06:01 Temp 97.9 Pulse 59 Resp 18 B/P (MAP) 131/74 (93) Pulse Ox 98 O2 Delivery Room Air 07/31/18 00:00 Intake Total 1040 ml Balance 1040 ml Weight (Pounds): 166 Weight (Ounces): 2.0 Weight (Calculated Kilograms): 75.480029 Constitutional: AAO x 3, well-developed, well-nourished Respiratory: chest expansion is symmetric, chest is bilaterally symmetric, lungs clear to auscultation, other (prolonged expiratory phase) Cardiovascular: regular rate-rhythm; No JVD; S1 and S2 Gastrointestional: No tender; soft, round, audible bowel sounds Extremities: other ((RLE visibly larger than left (reports chronic)), no lower extremity edema bilateral Neurologic/Psychiatric: other ((L-sided visual field cut in both eyes)), grossly intact, power is 5/5 both on sides Skin: No rash, No ulcerations Results/Procedures: Labs Laboratory Tests 07/31/18 07:15: Prothrombin Time 31.5H, INR Comment 2.9H A/P: Assessment: Hypertension CVA with L homonymous hemianopsia - small to moderate-sized area of acute/ subacute infarct involving the right occipital lobe. There is no evidence of intra-cranial hemorrhage, brain herniation, or midline shift on CT of the head on 07-15-18. Management of CVA is by Dr Mosquera Carotid artery disease - Per u/s of 07-15-18, there is mod bilat carotid arterial plaque, worse (50-70% stenosis) on the right UTI - management by Dr Mosquera Cardiac cath of July [address] Olvera showed multi-vessel dz - 60-70% mid-LAD involving origin of relatively sm caliber diag branch. 50-60% L Cx. RCA - large and dominant with 50% stenosis mid-vessel and 60% distal. LVEF 60%. Referred to Dr. Patel of cardiothoracic services at [facility] - medical tx advised at that time - has had no f/u Echo of 07/16/18: LVEF 45-50%, mod conc LVH, grade 1 caldwell dysfxn, PASP 25-30 mmHg H/O cervical cancer for which she has undergone chemo (last tx 12 years ago) H/O sleep apnea, non-compliant with CPAP tx HLD - statin tx followed by her PCP H/O sinus bradycardia and V-tach during ED visit in November 2017 - transferred to [facility] at that time Chronic diarrhea Reports chronic lymphedema to right leg Depression H/o lupus and gout (details unknown) followed and treated by pcp Family h/o CAD (son has had coronary stenting; mother has had CVA) Plan: Warfarin has been reduced (from 5 gradually to 2.5) in response to INR. Monitor labs, including INR. We have advised very close f/u on this (she has f/ u on INR with her pcp) Outpt f/u advised She understands all of the above DIMITRI OLVERA MD FACP FACC CCDS July 31, 2018 09:36
[2018-07-31 12:00] VITALS: BP 116/62
--- NOTE | 2018-07-31 13:53 | Therapy Team Discharge Summary ---
Therapy Discharge Summary Discharge Recommendations Date of Discharge Therapy D/C Recommendations: Home w/ Family Support Occupational Therapy pt has made great gains while in inpt rehab. OT has focused on increasing independence with ADLS/. functional transfers, use of AE, education on DME/ home modifications, safe transfers training, UE ROM/ strength, HEP, static/ dyn standing balance, kitchen mobility, IADL tasks, and overall safety with functional tasks in sitting/ standing. pt is currently independent/ MOD I with all ADLs/ functional transfers with use of RW, shower chair, and maintenance mechanic elevators. pt verbalized understanding of only using RW and not quad cane secondary to decrease safety with quad can during ADLs. pt has all equipment needed for discharge. pt d/c home this date. d/c OT services at this time. No Skilled OT Needs ID'd PT Plater Supervisor Goals Long-Term Goals PT Long-Term Goals Time Frame: August 11, 2018 Transfers (B,C,W/C) (FIM): 6 Roll Left to Right (QC): 6 Sit to Lying (QC): 6 Lying-Sitting on Side/Bed(QC): 6 Sit to Stand (QC): 6 Chair/Gxn-ru-Tisab Xfer(QC): 6 Car Transfer (QC): 6 Gait (FIM): 6 Distance: 300' Walk 10 feet (QC): 6 Walk 10ft-Uneven Surface(QC): 6 Walk 50ft with 2 Turns (QC): 6 Walk 150 ft (QC): 6 Gait Level of Assist: 6 Gait Assistive Device: Walker 4 Wheeled, Cane Small Base Quad Stairs (FIM): 5 # of Steps: 12 1 Step (curb) (QC): 4 4 Steps (QC): 4 12 Steps (QC): 4 Stairs Level Of Assist: 5 OT Long-Term Goals Long-Term Goals Eating (FIM): 6 (MET) Eating (QC): 6 (MET) Oral Hygiene (QC): 7 (MET) Grooming(FIM): 6 (MET) Bathing(FIM): 6 (MET) Bathing Location: L Arm, R Arm, L Upper Leg, R Upper Leg, L Lower Leg ( including foot), R Lower Leg (including foot), Chest, Abdomen, Buttocks, Perineal Area Shower/Bathe Self (QC): 6 (MET) Upper Body Dressing(FIM): 7 (MET) Upper Body Dressing (QC): 6 (MET) Lower Body Dressing(FIM): 6 (MET) Lower Body Dressing (QC): 6 (MET) On/Off Footwear (QC): 6 (MET) Toileting(FIM): 6 (MET) Toileting Hygiene (QC): 6 (MET) Transfers (B,C,W/C) (FIM): 6 (MET) Toilet/Commode Transfer(FIM): 6 (MET) Toilet/Commode Transfer (QC): 6 (MET) Tub Transfer(FIM): 6 (MET) Shower Transfer(FIM): 6 (MET) Additional Goals: 1-Demonstrate ADL Tasks, 2-Verbalize Understanding, 3- ImproveStrength/Ghada 1=Demonstrate adherence to instructed precautions during ADL tasks. 2=Patient will verbalize/demonstrate understanding of assistive devices/ modifications for ADL. 3=Patient will improve strength/tolerance for activity to enable patient to perform ADL's. DOMINGO HALL OT July 31, 2018 13:53
== END 2018-07-31 12:00 | disposition home or self-care (01) | DRG 57 ==
PROVIDERS: ADMIT Internal Medicine; ATTEND Internal Medicine
DX: I69.398 Other sequelae of cerebral infarction (principal); H53.462 Homonymous bilateral field defects, left side; R26.81 Unsteadiness on feet; R27.8 Other lack of coordination; R29.6 Repeated falls; R53.1 Weakness; R20.0 Anesthesia of skin; I65.23 Occlusion and stenosis of bilateral carotid arteries; N39.0 Urinary tract infection, site not specified; I25.10 Atherosclerotic heart disease of native coronary artery without angina pectoris; E78.5 Hyperlipidemia, unspecified; I89.0 Lymphedema, not elsewhere classified; I82.3 Embolism and thrombosis of renal vein; R19.7 Diarrhea, unspecified; F32.9 Major depressive disorder, single episode, unspecified; I10 Essential (primary) hypertension; M32.9 Systemic lupus erythematosus, unspecified; F41.9 Anxiety disorder, unspecified; F17.210 Nicotine dependence, cigarettes, uncomplicated; M10.9 Gout, unspecified; L60.0 Ingrowing nail; Z85.41 Personal history of malignant neoplasm of cervix uteri; Z85.44 Personal history of malignant neoplasm of other female genital organs; Z79.01 Long term (current) use of anticoagulants; Z82.49 Family history of ischemic heart disease and other diseases of the circulatory system; Z82.3 Family history of stroke
CPT/HCPCS: 36415; 80053; 85025; 85027; 85610

== ENCOUNTER 2018-10-30 20:03 | Emergency (ER) | payer MEDICARE ==
[~2018-10-30] VITALS: Ht 152.4 cm; Wt 73.0 kg
[~2018-10-30 20:03] MED LIST changes: +AMLO5TAB9 PO; +ASPI-999 PO; +DOXA1TAB2 PO; +METO-370 PO; +VARE0.5T PO; +WARF2.5T PO
[2018-10-30] MEDS ORDERED: VILA20TA (20:25)
[2018-10-30] MEDS ORDERED: APIX5TAB (20:25)
--- OUTSIDE RECORDS SUMMARY | 2018-10-30 20:26 | XMS REPORT | Clinical Summary ---
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 If you d o not see the information that you expected, contact Release of Information in [facility] [employer] Information Management department at [phone] for further assistan ce in locating additional records.[facility] Allergies No Known Allergies Medications End Date Status Medication Sig Dispensed Refills Start Date Active simvastatin (ZOCOR) 20 mg Take 20 mg by 0 PO tablet mouth at bedtime daily. Active citalopram (CELEXA) 10 mg Take 10 mg by 0 PO tablet mouth daily. Active Naproxen Sodium 220 mg PO Take 1-2 Tabs 0 Tab by mouth twice daily as needed. Active niacin 500 mg PO tablet Take 500 mg 0 by mouth at bedtime daily. Active aspirin 325 mg PO tablet Take 325 mg 0 by mouth daily. Active hydrocodone-acetaminophen Take 1 Tab by 0 (NORCO) 5-325 mg PO per mouth every 4 tablet hours as needed. 1 tab q 4-6 hrs prn Active ergocalciferol (VITAMIN Take 1 Cap by 12 Cap 0 D-2) 50,000 unit PO mouth every 7 1 capsuleIndications: days. Vitamin D deficiency Active hydroxychloroquine Take 2 Tabs 60 Tab 2 (PLAQUENIL) 200 mg PO by mouth 1 tablet daily. Active Problems Not on file Family History Medical History Relation Name Comments Diabetes Maternal Grandmother Heart Disease Maternal Grandmother Stroke Maternal Grandmother Diabetes Mother Stroke Mother Epilepsy Son Relation Name Status Comments Brother Alive Maternal Grandfather Maternal Grandmother Mother Alive Sister Alive Son Alive Social History Date Tobacco Use Types Packs/Day Years Used Current Every Day Smoker Cigarettes 1 40 Smokeless Tobacco: Never Used Drinks/Week oz/Week Comments Alcohol Use 1 Standard drinks or equivalent 0.5 Yes Sex Assigned at Date Recorded Not on file Industry Job Start Date Occupation Not on file Not on file Not on file Travel End Travel History Travel Start No recent travel history available. Last Filed Vital Signs Reading Time Taken Comments Vital Sign 120/72 12/31/2010 10:51 AM CDT Blood Pressure 97 12/31/2010 10:51 AM CDT Pulse 36.7 C (98 F) 12/31/2010 10:51 AM CDT Temperature - - Respiratory Rate - - Oxygen Saturation - - Inhaled Oxygen Concentration 97.6 kg (215 lb 3.2 oz) 12/31/2010 10:51 AM CDT Weight 156.8 cm (5' 1.75") 12/31/2010 10:51 AM CDT Height 39.68 12/31/2010 10:51 AM CDT Body Mass Index Plan of Treatment Health Maintenance Due Date Last Done Comments HEPATITIS C SCREENING 1945 PHYSICAL (COMPREHENSIVE) 06/21/1954 EXAM DTAP/TDAP VACCINES (1 - 06/21/1965 Tdap) BREAST CANCER SCREENING 1987 COLORECTAL CANCER 06/21/1997 SCREENING SHINGLES RECOMBINANT 06/21/1997 VACCINE (1 of 2) OSTEOPOROSIS 06/21/2012 SCREENING/MONITORING PNEUMONIA (PCV13/PPSV23) 06/21/2012 VACCINES (1 of 2 - PCV13) INFLUENZA VACCINE 12/22/2018 Results Not on filefrom Last 3 Months
--- OUTSIDE RECORDS SUMMARY | 2018-10-30 20:27 | XMS REPORT ---
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 Active 754815180 Problem Lumbago with sciatica, right side M54.41 Active 222856814 Problem Other chronic pain G89.29 Active 58834354 Problem Other chronic pain G89.29 Active 54919011 Problem Acute right-sided low back pain with right-sided sciatica M54.41 Active 494447148 Problem Other organ or system involvement in systemic lupus erythematosus M32.19 Active 87814419 Problem Sciatica M54.30 Active 28130489 Problem 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 E78.2 Active 793578455 Problem Episode of recurrent major depressive disorder, unspecified depression episode severity F33.9 Active 914921608 Problem Right renal artery stenosis I70.1 Active [id number] Problem Systemic lupus erythematosus, unspecified SLE type, unspecified organ involvement status M32.9 Active 72295169 Problem prison current use of anticoagulant Z79.01 Active 167081262 Problem Asymptomatic menopausal state Z78.0 Active 34107980 Problem Seborrheic keratoses L82.1 Active 426140022 Problem Cerebrovascular accident (CVA) due to occlusion of other cerebral artery I63.59 Active 879109864 Problem Anxiety F41.9 Active 75817228 Problem HILARIO (obstructive sleep apnea) G47.33 Active 86429433 Problem Hepatitis C B19.20 Active 98132411 Problem Chronic anticoagulation Z79.01 Active 530853901 Problem 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 Active 960828073 Problem Sialoadenitis, unspecified K11.20 Active 68128102 Problem 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 61166535 ALLERGIES No Information ENCOUNTERS Encounter Location Date Diagnosis [place] [id number] [place] [address] Sep, [facility] [id number] [place] [address] Sep, Other chronic pain G89.29 [place] [id number] [place] [address] Aug, [place] [id number] [place] [address] Aug, Other chronic pain G89.29 [place] [address] [id number] [place] [address] July, 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 and Cerebrovascular accident (CVA) due to occlusion of other cerebral artery I63.59 [place] [id number] [place] [address] July, Renal insufficiency N28.9 [place] [id number] [place] [address] July, Cerebrovascular accident (CVA) due to occlusion of other cerebral artery I63.59 and Unexplained weight loss R63.4 [place] [address] [address] July, [place] [address] [id number] [place] [address] July, [place] [address] [place] [address] July, Unexplained weight loss R63.4 and prison current use of anticoagulant Z79.01 [place] [address] [place] [address] July, Other chronic pain G89.29 [place] [address] [id number] [place] [address] Jun, Other chronic pain G89.29 [facility] [id number] [place] [address] May, Unexplained weight loss R63.4 [facility] [id number] [place] [address] May, Nausea with vomiting, unspecified R11.2 [place] [address] [address] May, Non-recurrent acute suppurative otitis media of right ear without spontaneous rupture of tympanic membrane H66.001 and Chronic anticoagulation Z79.01 [place] [address] [id number] [place] [address] May, Other chronic pain G89.29 [facility] [id number] [place] [address] Apr, Skin tear of right forearm without complication, initial encounter S51.811A ; Skin tear of left forearm without complication, initial encounter S51.812A and Encounter for immunization Z23 [place] [id number] [place] [address] Apr, [facility] [id number] [place] [address] Apr, Diarrhea, unspecified R19.7 ; Nausea with vomiting, unspecified R11.2 and 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 [facility] [address] [place] [address] Apr, Other chronic pain G89.29 [facility] [id number] [place] [address] Mar, Other chronic pain G89.29 [place] [id number] [place] [address] Mar, Other chronic pain G89.29 [facility] [address] [place] [address] Mar, [facility] [id number] [place] [address] Mar, Other organ or system involvement in systemic lupus erythematosus M32.19 [place] [address] [id number] [place] [address] Mar, Non-recurrent acute suppurative otitis media of right ear without spontaneous rupture of tympanic membrane H66.001 and Chronic anticoagulation Z79.01 [facility] [id number] [place] [address] Feb, Sialoadenitis, unspecified K11.20 [place] [address] [id number] [place] [address] Feb, Other chronic pain G89.29 [place] [address] [address] [id number] [place] [address] Jan, prison 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 Z79.01 [place] [id number] [place] [address] Jan, Other chronic pain G89.29 ; Lumbago with sciatica, right side M54.41 ; Other chronic pain G89.29 ; Tobacco abuse Z72.0 ; Tobacco abuse counseling Z71.6 ; 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 E78.2 and 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 [place] [address] [id number] [place] [address] Jan, [place] [address] [address] [id number] [place] [address] Dec, [place] [address] [address] [id number] [place] [address] Dec, [place] [address] [address] [id number] [place] [address] Dec, [place] [address] [address] [id number] [place] [address] Dec, 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 E78.2 ; Other chronic pain G89.29 ; Anxiety F41.9 ; Episode of recurrent major depressive disorder, unspecified depression episode severity F33.9 ; Right renal artery stenosis I70.1 ; Systemic lupus erythematosus, unspecified SLE type, unspecified organ involvement status M32.9 ; HILARIO (obstructive sleep apnea) G47.33 ; 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 ; Seborrheic keratoses L82.1 and Other organ or system involvement in systemic lupus erythematosus M32.19 [facility] [address] [place] [id number] Dec, Right renal artery stenosis I70.1 ; Other organ or system involvement in systemic lupus erythematosus M32.19 ; Hepatitis C B19.20 ; Tobacco abuse Z72.0 and Weakness R53.1 [email or web address] [address] [place] [id number] Dec, [place] [address] [place] [address] Dec, [place] [address] [place] [address] Dec, Other organ or system involvement in systemic lupus erythematosus M32.19 [email or web address] [address] [place] [address] Dec, Right renal artery stenosis I70.1 ; Injury of right kidney, sequela S37.001S ; Tobacco abuse Z72.0 ; Systemic lupus erythematosus, unspecified SLE type, unspecified organ involvement status M32.9 ; Hepatitis C B19.20 and Candidiasis of female genitalia B37.3 [place] [address] [address] Dec, Other organ or system involvement in systemic lupus erythematosus M32.19 [place] [address] [address] Dec, Other organ or system involvement in systemic lupus erythematosus M32.19 [place] [address] [place] [address] Dec, [facility] [id number] [address] Nov, Other organ or system involvement in systemic lupus erythematosus M32.19 [facility] [id number] [address] Oct, Other organ or system involvement in systemic lupus erythematosus M32.19 [facility] [address] [address] Sep, Other organ or system involvement in systemic lupus erythematosus M32.19 [facility] [address] [address] Aug, Anxiety F41.9 [place] [address] [address] Aug, Other organ or system involvement in systemic lupus erythematosus M32.19 [place] [address] [address] July, Medicare annual wellness visit, initial Z00.00 ; Anxiety F41.9 ; HILARIO (obstructive sleep apnea) G47.33 ; Hepatitis C B19.20 ; Other chronic pain G89.29 ; Asymptomatic menopausal state Z78.0 and Episode of recurrent major depressive disorder, unspecified depression episode severity F33.9 [place] [address] [id number] [address] July, Anxiety F41.9 [facility] [address] [place] [id number] [address] July, Other organ or system involvement in systemic lupus erythematosus M32.19 [facility] [address] [address] July, [facility] [address] [address] Jun, Other organ or system involvement in systemic lupus erythematosus M32.19 ; BMI 40.0-44.9, adult Z68.41 ; Other chronic pain G89.29 and Controlled substance agreement signed Z79.899 [facility] [address] [address] May, Sciatica M54.30 [facility] [address] [address] Apr, Sciatica M54.30 [facility] [address] [address] Mar, Sciatica M54.30 [place] [address] [address] Feb, Sciatica M54.30 [place] [address] [address] 15 Jan, 2017 Sciatica M54.30 [place] [address] [address] 14 Jan, 2017 Sciatica M54.30 [place] [address] [address] 19 Dec, 2016 Sciatica M54.30 [place] [address] [address] 18 Dec, 2016 Sciatica M54.30 [place] [address] [address] 29 Nov, 2016 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 E78.2 ; Chronic seasonal allergic rhinitis due to other allergen J30.2 and Family history of early CAD Z82.49 [place] [address] [place] [id number] [place] [address] 21 Nov, 2016 Sciatica M54.30 [facility] [address] [id number] [place] [address] 18 Nov, 2016 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 E78.2 ; Chronic seasonal allergic rhinitis due to other allergen J30.2 ; Family history of early CAD Z82.49 ; Other chronic pain G89.29 and Pain in left shoulder M25.512 [place] [address] [place] [id number] [place] [address] Nov, Acute pain of left shoulder M25.512 [facility] [id number] [place] [address] Oct, Sciatica M54.30 [facility] [id number] [place] [address] Oct, [facility] [address] [id number] [place] [address] Sep, Sciatica M54.30 [place] [address] [address] Sep, Acute pain of left shoulder M25.512 [facility] [address] [place] [id number] [place] [address] Sep, Acute pain of left shoulder M25.512 [place] [address] [address] Aug, Sciatica M54.30 [place] [address] [place] [id number] [place] [address] Aug, Sciatica M54.30 ; Tobacco abuse Z72.0 and Tobacco abuse counseling Z71.6 [place] [address] [place] [id number] [place] [address] Aug, Acute pain of left shoulder M25.512 [facility] [id number] [place] [address] Aug, Contusion of right shoulder, initial encounter S40.011A ; Acute pain of left shoulder M25.512 and Shortness of breath R06.02 [facility] [address] [id number] [place] [address] Aug, Lumbago with sciatica, right side M54.41 [facility] [address] [place] [id number] [place] [address] July, [facility] [address] [place] [address] July, Lumbago with sciatica, right side M54.41 [facility] [address] [id number] [place] [address] Jun, Lumbago with sciatica, right side M54.41 [facility] [address] [place] [id number] [place] [address] May, Lumbago with sciatica, right side M54.41 [facility] [id number] [place] [address] May, Herpes zoster without complication B02.9 [facility] [address] [place] [id number] [place] [address] May, Back pain M54.9 and Acute right-sided low back pain with right-sided sciatica M54.41 [facility] [address] [address] [id number] [place] [address] Apr, [facility] [id number] [place] [address] Apr, Lumbago with sciatica, right side M54.41 and Other chronic pain G89.29 [facility] [address] [id number] [place] [address] Apr, [facility] [address] [id number] [place] [address] Mar, [facility] [id number] [place] [address] Mar, [facility] [id number] [place] [address] Feb, [facility] [id number] [place] [address] Jan, Urinary frequency R35.0 [facility] [address] [address] [place] [address] Jan, [facility] [address], [place] [address] Dec, [facility] [address] [place] [address] Oct, [facility] [id number] [place] [address] Sep, [facility] [id number] [place] [address] Sep, Foreign body in left foot, initial encounter S90.852A [facility] [id number] [place] [address] Aug, [facility] [id number] [place] [address] July, Sciatica M54.30 [facility] [id number] [place] [address] Jun, [facility] [id number] [place] [address] May, Osteoarthritis M19.90 [facility] [id number] [place] [address] May, [facility] [address] [place] [address] May, Pain in right hip M25.551 [facility] [address] [address] May, Tinea corporis B35.4 [facility] [id number] [place] [address] 10 Apr, 2015 Pain in right hip M25.551 [facility] [address] [address] Mar, Pain in right hip M25.551 [facility] [address] [address] Mar, [facility] [id number] [place] [address] Feb, Pain in right hip M25.551 [facility] [id number] [place] [address] Jan, Acute bronchitis, unspecified organism J20.9 and Cough R05 [facility] [id number] [place] [address] Jan, Pain in right hip M25.551 [facility] [id number] [place] [address] Dec, Pain in right hip M25.551 [facility] [id number] [place] [address] Nov, Acute bronchitis 466.0 [facility] [id number] [place] [address] Nov, [facility] [id number] [place] [address] Oct, [facility] [id number] [place] [address] Sep, [facility] [address] [place] [address] Aug, [facility] [id number] [place] [address] July, [facility] [id number] [place] [address] 14 Jun, 2014 [facility] [id number] [place] [address] Jun, [facility] [address] [address] May, [facility] [id number] [place] [address] May, [facility] [place] [facility] [address] [id number] [place] [address] Apr, 2014 [facility] [place] [facility] [address] [id number] [place] [address] Apr, 2014 [facility] [place] [facility] [address] [id number] [place] [address] Apr, 2014 [facility] [place] [facility] [address] [id number] [place] [address] Apr, 2014 [facility] [place] [facility] [address] [id number] [place] [address] Apr, 2014 [facility] [place] [facility] [address] [facility] [id number] [place] [address] Apr, 2014 [facility] [place] [facility] [address] [facility] [id number] [place] [address] Mar, [facility] [place] [facility] [address] [id number] [place] [address] Mar, [facility] [place] [facility] [address] [facility] [id number] [place] [address] Feb, [facility] [place] [facility] [address] [id number] [place] [address] Feb, [facility] [place] [facility] [address] [id number] [place] [address] Feb, [facility] [place] [facility] [address] [id number] [place] [address] Dec, [facility] [place] [facility] [address] [id number] [place] [address] Dec, [facility] [place] [facility] [address] [id number] [place] [address] 17 Nov, 2013 [facility] [place] [facility] [address] [id number] [place] [address] Nov, [facility] [place] [facility] [address] [id number] [place] [address] Nov, [facility] [place] [facility] [address] [id number] [place] [address] Nov, [facility] [place] [facility] [address] [id number] [place] [address] Sep, [facility] [place] [facility] [address] [id number] [place] [address] Sep, [facility] [place] [facility] [address] [id number] [place] [address] Sep, [facility] [place] [facility] [address] [id number] [place] [address] Sep, [facility] [place] [facility] [address] [id number] [place] [address] Aug, [facility] [place] [facility] [address] [id number] [place] [address] Aug, [facility] [place] [facility] [address] [id number] [place] [address] Aug, [facility] [place] [facility] [address] [id number] [place] [address] Aug, [facility] [place] [facility] [address] [id number] [place] [address] July, [facility] [place] [facility] [address] [id number] [place] [address] July, [facility] [place] [facility] [address] [id number] [place] [address] Jun, [facility] [place] [facility] [address] [id number] [place] [address] Jun, [facility] [place] [facility] [address] [id number] [place] [address] Jun, [facility] [place] [facility] [address] [id number] [place] [address] Jun, [facility] [place] [facility] [address] [id number] [place] [address] Jun, [facility] [place] [facility] [address] [id number] [place] [address] Jun, [facility] [place] [facility] [address] [id number] [place] [address] Jun, [facility] [place] [facility] [address] [id number] [place] [address] Jun, [facility] [place] [facility] [address] [id number] [place] [address] May, [facility] [place] [facility] [address] [id number] [place] [address] May, [facility] [place] [facility] [address] [id number] [place] [address] May, [facility] [facility] [address] [id number] [place] [address] May, [facility] [address] [id number] [place] [address] May, [facility] [address] [id number] [place] [address] May, [facility] [facility] [address] [id number] [place] [address] Apr, [facility] [address] [id number] [place] [address] Apr, [facility] [place] [facility] [address] [id number] [place] [address] Apr, [facility] [facility] [address] [id number] [place] [address] Apr, [facility] [place] [facility] [address] [id number] [place] [address] Mar, [facility] [address] [id number] [place] [address] Mar, [facility] [place] [facility] [address] [id number] [place] [address] Mar, [facility] [place] [facility] [address] [id number] [place] [address] Mar, [facility] [place] [facility] [address] [id number] [place] [address] Mar, [facility] [place] [facility] [address] [id number] [place] [address] Mar, [facility] [place] [facility] [address] [id number] [place] [address] Feb, [facility] [place] [facility] [address] [id number] [place] [address] Feb, [facility] [place] [facility] [address] [id number] [place] [address] Feb, [facility] [place] [facility] [address] [id number] [place] [address] Feb, [facility] [place] [facility] [address] [id number] [address] Feb, [facility] [address] [id number], [place] [address] Feb, [facility] [address] [id number], [place] [address] Feb, [facility] [address] [address] [id number] [place] [address] Feb, [facility] [place] [facility] [address] [id number] [address] Feb, [facility] [place] [facility] [address] [id number][place] [address] Feb, [facility] [place] [facility] [address] [id number] [place] [address] Feb, [facility] [address] [id number] [place] [address] Feb, [facility] [place] [facility] [address] [id number] [place] [address] Jan, [facility] [place] [facility] [address] [id number] [place] [address] Jan, [facility] [place] [facility] [address] [id number] [place] [address] Jan, [facility] [place] [facility] [address] [id number] [place] [address] Jan, [facility] [place] [facility] [address] [id number] [place] [address] Jan, [facility] [address] [id number] [place] [address] Jan, [facility] [place] [facility] [address] [id number] [place] [address] Jan, [facility] [place] [facility] [address] [id number] [place] [address] Jan, [facility] [place] [facility] [address] [id number] [place] [address] Jan, [facility] [place] [facility] [address] [id number] [place] [address] Jan, [facility] [place] [facility] [address] [id number], [place] [address] Dec, [facility] [place] [facility] [address] [id number] [place] [address] Dec, [facility] [place] [facility] [address] [id number] [place] [address] Nov, [facility] [place] [facility] [address] [id number], [place] [address] Nov, [facility] [place] [facility] [address] [id number] [place] [address] Nov, [facility] [place] [facility] [address] [id number] [place] [address] Nov, [facility] [place] [facility] [address] [id number] [place] [address] Nov, [facility] [place] [facility] [address] [id number] [place] [address] Oct, [facility] [place] [facility] [address] [id number] [place] [address] Oct, [facility] [place] [facility] [address] [id number] [place] [address] Oct, [facility] [place] [facility] [address] [id number] [place] [address] Oct, [facility] [place] [facility] [address] [id number] [place] [address] Oct, [facility] [place] [facility] [address] [id number] [place] [address] Sep, [facility] [place] [facility] [address] [id number] [place] [address] Sep, [facility] [place] [facility] [address] [id number] [place] [address] Sep, [facility] [place] [facility] [address] [id number] [place] [address] Sep, [facility] [place] [facility] [address] [id number] [place] [address] Sep, [facility] [place] [facility] [address] [id number] [place] [address] Sep, [facility] [place] [facility] [address] [id number] [place] [address] Aug, [facility] [place] [facility] [address] [id number], [place] [address] Aug, [facility] [address] [id number] [place] [address] July, [facility] [address] [id number] [place] [address] July, [facility] [address] [id number] [place] [address] July, [facility] [address] [id number] [place] [address] Jun, [facility] [address] [id number] [place] [address] Jun, [facility] [address] [id number] [place] [address] Jun, [facility] [address] [id number] [place] [address] Jun, [facility] [address] [id number], [place] [address] May, [facility] [address] [id number], [place] [address] May, [facility] [address] [id number], [place] [address] Apr, [facility] [address] [id number], [place] [address] Apr, [facility] [address] [id number], [place] [address] Apr, [facility] [address] [id number] [place] [address] Apr, [facility] [address] [id number], [place] [address] 13 Apr, 2012 [facility] [address] [id number] [place] [address] Apr, [facility] [place] [facility] [address] [id number] [place] [id number] Apr, [facility] [place] [facility] [address] [id number] [place] [address] Apr, [facility] [place] [facility] [address] [id number] [place] [address] Mar, [facility] [place] [facility] [address] [id number] [place] [address] Mar, [facility] [place] [facility] [address] [id number] [place] [address] Mar, [facility] [place] [facility] [address] [id number] [place] [address] Mar, [facility] [place] [facility] [address] [id number] [place] [address] Jan, [facility] [place] [facility] [address] [id number] [place] [address] Jan, [facility] [place] [facility] [address] [id number] [place] [address] Jan, [facility] [place] [facility] [address] [id number] [place] [address] Jan, [facility] [place] [facility] [address] [id number] [place] [address] Jan, [facility] [place] [facility] [address] [id number] [place] [address] Dec, [facility] [place] [facility] [address] [id number] [place] [address] Dec, [facility] [place] [facility] [address] [id number] [place] [address] Dec, [facility] [place] [facility] [address] [id number] [place] [address] Dec, [facility] [place] [facility] [address] [id number] [place] [address] Nov, [facility] [place] [facility] [address] [id number] [place] [address] Oct, [facility] [place] [facility] [address] [id number] [place] [address] Oct, [facility] [place] [facility] [address] [id number] [place] [address] Oct, [facility] [place] [facility] [address] [id number] [place] [address] Oct, [facility] [place] [facility] [address] [id number] [place] [address] Oct, [facility] [place] [facility] [address] [id number] [place] [address] Sep, [facility] [place] [facility] [address] [id number] [place] [address] Sep, [facility] [place] [facility] [address] [id number] [place] [address] Aug, [facility] [place] [facility] [address] [id number] [place] [address] Aug, [facility] [place] [facility] [address] [id number] [place] [address] Aug, [facility] [place] [facility] [address] [id number] [place] [address] Aug, [facility] [place] [facility] [address] [id number] [place] [address] July, [facility] [place] [facility] [address] [id number] [place] [address] Jun, [facility] [place] [facility] [address] [id number] [place] [address] May, [facility] [place] [facility] [address] [id number] [place] [address] May, [facility] [place] [facility] [address] [id number] [place] [address] 12 May, 2011 [facility] [address] [id number] [place] [address] Mar, [facility] [place] [facility] [address] [id number] [place] [address] Feb, [facility] [address] [id number] [place] [address] Feb, [facility] [place] [facility] [address] [id number] [place] [address] Jan, [facility] [place] [facility] [address] [id number] [place] [address] Jan, [facility] [place] [facility] [address] [id number] [place] [address] Jan, [facility] [address] [id number] [place] [address] Jan, [facility] [address] [id number] [place] [address] Jan, [facility] [place] [facility] [address] [id number] [place] [address] Dec, [facility] [place] [facility] [address] [facility] [id number] [place] [address] Dec, [facility] [place] [facility] [address] [id number] [place] [address] Dec, [facility] [place] [facility] [address] [id number] [place] [address] 18 May, 2009 [facility] [place] [facility] [address] [id number] [place] [address] 15 May, 2009 [facility] [place] [facility] [address] [id number] [place] [address] 17 Apr, 2009 [facility] [place] [facility] [address] [id number] [place] [address] Jan, [facility] [address] [facility] [id number] [place] [address] 11 Apr, 2008 IMMUNIZATIONS No Known Immunizations SOCIAL HISTORY Never Assessed REASON FOR VISIT PLAN OF CARE VITAL SIGNS MEDICATIONS Unknown [...] History Counseling on substance use and abuse Medical History renal infarct Surgical History cholecystectomy Surgical History hysterectomy Surgical History modified radical vulvectomy for cancer Hospitalization History surgeries Hospitalization History [facility] ER, heart- kidney- Stayed at [facility] ICU 12/2017 Hospitalization History [facility] ER 03[facility]2018 Hospitalization History [facility]- Stroke 2 weeks 06/2018
--- OUTSIDE RECORDS SUMMARY | 2018-10-30 20:28 | XMS REPORT ---
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 Active 092555838 Problem Lumbago with sciatica, right side M54.41 Active 240401870 Problem Other chronic pain G89.29 Active 85454336 Problem Other chronic pain G89.29 Active 25674208 Problem Acute right-sided low back pain with right-sided sciatica M54.41 Active 614893538 Problem Other organ or system involvement in systemic lupus erythematosus M32.19 Active 58345957 Problem Sciatica M54.30 Active 30906800 Problem 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 E78.2 Active 053831735 Problem Episode of recurrent major depressive disorder, unspecified depression episode severity F33.9 Active 021112945 Problem Right renal artery stenosis I70.1 Active [id number] Problem Systemic lupus erythematosus, unspecified SLE type, unspecified organ involvement status M32.9 Active 83343426 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 Active 172217646 Problem Asymptomatic menopausal state Z78.0 Active 64669453 Problem Seborrheic keratoses L82.1 Active 809351851 Problem Cerebrovascular accident (CVA) due to occlusion of other cerebral artery I63.59 Active 069381585 Problem Anxiety F41.9 Active 40102959 Problem HILARIO (obstructive sleep apnea) G47.33 Active 37781277 Problem Hepatitis C B19.20 Active 63919566 Problem Chronic anticoagulation Z79.01 Active 982276942 Problem FDC 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 Z79.01 Active 649691385 Problem Sialoadenitis, unspecified K11.20 Active 97533819 Problem 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 70282204 ALLERGIES No Information ENCOUNTERS Encounter Location Date Diagnosis [place] [id number] [place] [address] Sep, [facility] [id number] [place] [address] Aug, [place] [address] [address] Aug, Other chronic pain G89.29 [place] [id number] [place] [address] July, 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 and Cerebrovascular accident (CVA) due to occlusion of other cerebral artery I63.59 [place] [id number] [place] [address] July, Renal insufficiency N28.9 [place] [id number] [place] [address] July, Cerebrovascular accident (CVA) due to occlusion of other cerebral artery I63.59 and Unexplained weight loss R63.4 [place] [id number] [place] [address] July, [place] [id number] [place] [address] July, [place] [id number] [place] [address] July, Unexplained weight loss R63.4 and 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 [place] [id number] [place] [address] July, Other chronic pain G89.29 [place] [id number] [place] [address] Jun, Other chronic pain G89.29 [place] [id number] [place] [address] May, Unexplained weight loss R63.4 [facility] [id number] [place] [address] May, Nausea with vomiting, unspecified R11.2 [place] [id number] [place] [address] May, Non-recurrent acute suppurative otitis media of right ear without spontaneous rupture of tympanic membrane H66.001 and Chronic anticoagulation Z79.01 [facility] [id number] [place] [address] May, Other chronic pain G89.29 [facility] [id number] [place] [address] Apr, Skin tear of right forearm without complication, initial encounter S51.811A ; Skin tear of left forearm without complication, initial encounter S51.812A and Encounter for immunization Z23 [place] [id number] [place] [address] Apr, [facility] [id number] [place] [address] Apr, Diarrhea, unspecified R19.7 ; Nausea with vomiting, unspecified R11.2 and 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 [facility] [id number] [place] [address] Apr, Other chronic pain G89.29 [facility] [id number] [place] [address] Mar, Other chronic pain G89.29 [place] [id number] [place] [address] Mar, Other chronic pain G89.29 [facility] [id number] [place] [address] Mar, [facility] [id number] [place] [address] Mar, Other organ or system involvement in systemic lupus erythematosus M32.19 [place] [id number] [place] [address] Mar, Non-recurrent acute suppurative otitis media of right ear without spontaneous rupture of tympanic membrane H66.001 and Chronic anticoagulation Z79.01 [facility] [id number] [place] [address] Feb, Sialoadenitis, unspecified K11.20 [facility] [address] [address] Feb, Other chronic pain G89.29 [place] [id number] [place] [address] Jan, [facility]DC 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 Z79.01 [place] [id number] [place] [address] Jan, Other chronic pain G89.29 ; Lumbago with sciatica, right side M54.41 ; Other chronic pain G89.29 ; Tobacco abuse Z72.0 ; Tobacco abuse counseling Z71.6 ; 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 E78.2 and 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 [facility] [id number] [place] [address] Jan, [place] [id number] [place] [address] Dec, [facility] [id number] [place] [address] Dec, [place] [address] [address] Dec, [place] [id number] [place] [address] Dec, 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 E78.2 ; Other chronic [...] involvement in systemic lupus erythematosus M32.19 [facility] [address] [id number] Dec, Right renal artery stenosis I70.1 ; Other organ or system involvement in systemic lupus erythematosus M32.19 ; Hepatitis C B19.20 ; Tobacco abuse Z72.0 and Weakness R53.1 [facility] [address] [id number] Dec, [facility] [address] [place] [address] Dec, [place] [id number] [place] [address] Dec, Other organ or system involvement in systemic lupus erythematosus M32.19 [facility] [address] [id number] Dec, Right renal artery stenosis I70.1 ; Injury of right kidney, sequela S37.001S ; Tobacco abuse Z72.0 ; Systemic lupus erythematosus, unspecified SLE type, unspecified organ involvement status M32.9 ; Hepatitis C B19.20 and Candidiasis of female genitalia B37.3 [place] [address] [address] Dec, Other organ or system involvement in systemic lupus erythematosus M32.19 [facility] [address] [address] Dec, Other organ or system involvement in systemic lupus erythematosus M32.19 [facility] [address] [address] Dec, [facility] [id number] [place] [address] Nov, Other organ or system involvement in systemic lupus erythematosus M32.19 [facility] [address] [address] Oct, Other organ or system involvement in systemic lupus erythematosus M32.19 [facility] [address] [address] Sep, Other organ or system involvement in systemic lupus erythematosus M32.19 [facility] [address] [address] Aug, Anxiety F41.9 [facility] [address] [address] Aug, Other organ or system involvement in systemic lupus erythematosus M32.19 [place] [address] [address] July, Medicare annual wellness visit, initial Z00.00 ; Anxiety F41.9 ; HILARIO (obstructive sleep apnea) G47.33 ; Hepatitis C B19.20 ; Other chronic pain G89.29 ; Asymptomatic menopausal state Z78.0 and Episode of recurrent major depressive disorder, unspecified depression episode severity F33.9 [place] [address] [address] July, Anxiety F41.9 [facility] [address] [address] July, Other organ or system involvement in systemic lupus erythematosus M32.19 [facility] [address], [place] [address] July, [facility] [address] [address] Jun, Other organ or system involvement in systemic lupus erythematosus M32.19 ; BMI 40.0-44.9, adult Z68.41 ; Other chronic pain G89.29 and Controlled substance agreement signed Z79.899 [facility] [address], [place] [address] May, Sciatica M54.30 [facility] [id number] [place] [address] Apr, Sciatica M54.30 [facility] [id number] [place] [address] Mar, Sciatica M54.30 [facility] [address] [address] Feb, Sciatica M54.30 [facility] [address] [address] Jan, Sciatica M54.30 [facility] [address] [address] 14 Jan, 2017 Sciatica M54.30 [facility] [id number] [place] [address] Dec, Sciatica M54.30 [facility] [address] [address] 18 Dec, 2016 Sciatica M54.30 [facility] [id number] [place] [address] 29 Nov, 2016 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 E78.2 ; Chronic seasonal allergic rhinitis due to other allergen J30.2 and Family history of early CAD Z82.49 [facility] [id number] [place] [address] 21 Nov, 2016 Sciatica M54.30 [facility] [id number] [place] [address] 18 Nov, 2016 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 E78.2 ; Chronic seasonal allergic rhinitis due to other allergen J30.2 ; Family history of early CAD Z82.49 ; Other chronic pain G89.29 and Pain in left shoulder M25.512 [facility] [id number] [place] [address] 11 Nov, 2016 Acute pain of left shoulder M25.512 [facility] [id number] [place] [address] Oct, Sciatica M54.30 [facility] [id number] [place] [address] Oct, [facility] [id number] [place] [address] Sep, Sciatica M54.30 [facility] [id number] [place] [address] Sep, Acute pain of left shoulder M25.512 [place] [id number] [place] [address] Sep, Acute pain of left shoulder M25.512 [place] [id number] [place] [address] Aug, Sciatica M54.30 [place] [id number] [place] [address] Aug, Sciatica M54.30 ; Tobacco abuse Z72.0 and Tobacco abuse counseling Z71.6 [place] [id number] [place] [address] Aug, Acute pain of left shoulder M25.512 [facility] [address] [place] [address] Aug, Contusion of right shoulder, initial encounter S40.011A ; Acute pain of left shoulder M25.512 and Shortness of breath R06.02 [facility] [id number] [place] [address] Aug, Lumbago with sciatica, right side M54.41 [facility] [id number] [place] [address] July, [place] [id number] [place] [address] July, Lumbago with sciatica, right side M54.41 [facility] [id number] [place] [address] Jun, Lumbago with sciatica, right side M54.41 [facility] [id number] [place] [address] May, Lumbago with sciatica, right side M54.41 [facility] [address] [address] May, Herpes zoster without complication B02.9 [facility] [address] [address] May, Back pain M54.9 and Acute right-sided low back pain with right-sided sciatica M54.41 [facility] [address] [address] Apr, [facility] [address] [address] Apr, Lumbago with sciatica, right side M54.41 and Other chronic pain G89.29 [facility] [address] [address] Apr, [facility] [address] [address] Mar, [facility] [address] [address] Mar, [facility] [id number] [place] [address] Feb, [facility] [address] [address] Jan, Urinary frequency R35.0 [facility] [address] [address] Jan, [facility] [address] [place] [address] Dec, [facility] [id number] [place] [address] Oct, [facility] [id number] [place] [address] Sep, [facility] [id number] [place] [address] Sep, Foreign body in left foot, initial encounter S90.852A [facility] [id number] [place] [address] Aug, [facility] [id number] [place] [address] July, Sciatica M54.30 [facility] [id number] [place] [address] Jun, [facility] [id number] [place] [address] May, Osteoarthritis M19.90 [facility] [id number] [place] [address] May, [facility] [id number] [place] [address] May, Pain in right hip M25.551 [facility] [id number] [place] [address] May, Tinea corporis B35.4 [facility] [id number] [place] [address] Apr, Pain in right hip M25.551 [facility] [id number] [place] [address] Mar, Pain in right hip M25.551 [facility] [id number] [place] [address] Mar, [facility] [address], [place] [address] Feb, Pain in right hip M25.551 [facility] [id number] [place] [address] Jan, Acute bronchitis, unspecified organism J20.9 and Cough R05 [facility] [address], [place] [address] Jan, Pain in right hip M25.551 [facility] [id number], [place] [address] Dec, Pain in right hip M25.551 [facility] [id number] [place] [address] Nov, Acute bronchitis 466.0 [facility] [address], [place] [address] Nov, [facility] [address], [place] [address] Oct, [facility] [address], [place] [address] Sep, [facility] [address], [place] [address] Aug, [facility] [address], [place] [address] July, [facility] [address], [place] [address] Jun, [facility] [address], [place] [address] Jun, [facility] [address], [place] [address] May, [facility] [address], [place] [address] May, [facility] [id number] [place] [address] 17 Apr, 2014 [facility] [place] [facility] [address] [id number] [place] [address] Apr, 2014 [facility] [place] [facility] [address] [id number] [place] [address] Apr, 2014 [facility] [place] [facility] [address] [id number] [place] [address] Apr, 2014 [facility] [place] [facility] [address] [id number] [place] [address] Apr, 2014 [facility] [place] [facility] [address] [id number] [place] [address] Apr, 2014 [facility] [place] [facility] [address] [id number] [place] [address] Mar, [facility] [place] [facility] [address] [id number] [place] [address] Mar, [facility] [place] [facility] [address] [id number] [place] [address] Feb, [facility] [place] [facility] [address] [id number] [place] [address] Feb, [facility] [place] [facility] [address] [facility] [id number] [place] [address] Feb, [facility] [place] [facility] [address] [id number] [place] [address] Dec, [facility] [place] [facility] [address] [id number] [place] [address] Dec, [facility] [place] [facility] [address] [id number] [place] [address] 17 Nov, 2013 [facility] [place] [facility] [address] [id number] [place] [address] 17 Nov, 2013 [facility] [place] [facility] [address] [id number] [place] [address] Nov, [facility] [place] [facility] [address] [id number] [place] [address] Nov, [facility] [place] [facility] [address] [id number] [place] [address] Sep, [facility] [place] [facility] [address] [id number] [place] [address] Sep, [facility] [place] [facility] [address] [id number] [place] [address] Sep, [facility] [place] [facility] [address] [id number] [place] [address] Sep, [facility] [place] [facility] [address] [id number] [place] [address] Aug, [facility] [place] [facility] [address] [id number] [place] [address] Aug, [facility] [place] [facility] [address] [id number] [place] [address] Aug, [facility] [place] [facility] [address] [id number] [place] [address] Aug, [facility] [place] [facility] [address] [id number] [place] [address] July, [facility] [place] [facility] [address] [id number] [place] [address] July, [facility] [place] [facility] [address] [id number] [place] [address] Jun, [facility] [place] [facility] [address] [id number] [place] [address] Jun, [facility] [place] [facility] [address] [id number] [place] [address] Jun, [facility] [place] [facility] [address] [id number] [place] [address] Jun, [facility] [place] [facility] [address] [id number] [place] [address] Jun, [facility] [place] [facility] [address] [id number] [place] [address] Jun, [facility] [place] [facility] [address] [id number] [place] [address] Jun, [facility] [place] [facility] [address] [id number] [place] [address] Jun, [facility] [place] [facility] [address] [id number] [place] [address] May, [facility] [place] [facility] [address] [id number] [place] [address] May, [facility] [place] [facility] [address] [id number] [place] [address] May, [facility] [place] [facility] [address] [id number] [place] [address] May, [facility] [place] [facility] [address] [id number] [place] [address] May, [facility] [place] [facility] [address] [id number] [place] [address] May, [facility] [place] [facility] [address] [facility] [id number] [place] [address] Apr, [facility] [place] [facility] [address] [id number] [place] [address] Apr, [facility] [place] [facility] [address] [id number] [place] [address] Apr, [facility] [place] [facility] [address] [id number] [place] [address] Apr, [facility] [place] [facility] [address] [id number] [place] [address] Mar, [facility] [place] [facility] [address] [id number] [place] [address] Mar, [facility] [address] [id number] [place] [address] Mar, [facility] [place] [facility] [address] [id number] [place] [address] Mar, [facility] [place] [facility] [address] [id number] [place] [address] Mar, [facility] [place] [facility] [address] [id number] [place] [address] Mar, [facility] [address] [id number] [place] [address] Feb, [facility] [place] [facility] [address] [id number] [place] [address] Feb, [facility] [place] [facility] [address] [id number] [place] [address] Feb, [facility] [address] [id number], [place] [address] Feb, [facility] [place] [facility] [address] [id number] [place] [address] Feb, [facility] [place] [facility] [address] [id number], [place] [address] Feb, [facility] [place] [facility] [address] [id number], [place] [address] Feb, [facility] [place] [facility] [address] [id number], [place] [address] Feb, [facility] [place] [facility] [address] [id number], [place] [address] Feb, [facility] [place] [facility] [address] [id number], [place] [address] Feb, [facility] [place] [facility] [address] [id number], [place] [address] Feb, [facility] [place] [facility] [address] [id number], [place] [address] Feb, [facility] [address] [id number] [place] [address] Jan, [facility] [place] [facility] [address] [id number] [address] Jan, [facility] [place] [facility] [address] [facility] [id number] [place] [address] Jan, [facility] [place] [facility] [address] [id number], [place] [address] Jan, [facility] [place] [facility] [address] [facility] [id number] [place] [address] Jan, [facility] [place] [facility] [address] [id number], [place] [address] Jan, [facility] [address] [id number], [place] [address] Jan, [facility] [place] [facility] [address] [id number], [place] [address] Jan, [facility] [place] [facility] [address] [id number], [place] [address] Jan, [facility] [place] [facility] [address] [id number], [place] [address] Jan, [facility] [place] [facility] [address] [id number], [place] [address] Dec, [facility] [place] [facility] [address] [id number], [place] [address] Dec, [facility] [place] [facility] [address] [id number], [place] [address] Nov, [facility] [place] [facility] [address] [facility] [id number], [place] [address] Nov, [facility] [place] [facility] [address] [facility] [id number], [place] [address] Nov, [facility] [place] [facility] [address] [id number] [place] [address] Nov, [facility] [place] [facility] [address] [id number] [place] [address] Nov, [facility] [place] [facility] [address] [id number] [place] [address] Oct, [facility] [place] [facility] [address] [id number] [place] [address] Oct, [facility] [place] [facility] [address] [id number] [place] [address] Oct, [facility] [place] [facility] [address] [id number] [place] [address] Oct, [facility] [place] [facility] [address] [id number] [place] [address] Oct, [facility] [place] [facility] [address] [id number] [place] [address] Sep, [facility] [place] [facility] [address] [id number] [place] [address] Sep, [facility] [place] [facility] [address] [id number] [place] [address] Sep, [facility] [place] [facility] [address] [id number] [place] [address] Sep, [facility] [place] [facility] [address] [id number] [place] [address] Sep, [facility] [place] [facility] [address] [id number] [place] [address] Sep, [facility] [place] [facility] [address] [id number] [place] [address] Aug, [facility] [place] [facility] [address] [id number] [place] [address] Aug, [facility] [place] [facility] [address] [id number] [place] [address] July, [facility] [address] [id number] [place] [address] July, [facility] [address] [id number] [place] [address] July, [facility] [address] [id number] [place] [address] Jun, [facility] [address] [id number] [place] [address] Jun, [facility] [address] [id number] [place] [address] Jun, [facility] [address] [id number] [place] [address] Jun, [facility] [address] [id number] [place] [address] May, [facility] [place] [facility] [address] [id number] [place] [address] May, [facility] [address] [id number] [place] [address] Apr, [facility] [address] [id number] [place] [address] Apr, [facility] [address] [id number], [place] [address] Apr, [facility] [place] [facility] [address] [id number], [place] [address] Apr, [facility] [place] [facility] [address] [id number] [place] [address] Apr, [facility] [place] [facility] [address] [facility] [id number] [place] [address] Apr, [facility] [place] [facility] [address] [id number] [place] [id number] Apr, [facility] [place] [facility] [address] [id number] [place] [address] Apr, [facility] [address] [id number] [place] [address] Mar, [facility] [place] [facility] [address] [id number] [place] [address] Mar, [facility] [place] [facility] [address] [id number] [place] [address] Mar, [facility] [place] [facility] [address] [id number] [place] [address] Mar, [facility] [place] [facility] [address] [id number] [place] [address] Jan, [facility] [place] [facility] [address] [id number] [place] [address] Jan, [facility] [place] [facility] [address] [id number] [place] [address] Jan, [facility] [address] [id number] [place] [address] Jan, [facility] [place] [facility] [address] [id number] [place] [address] Jan, [facility] [address] [facility] [id number] [place] [address] Dec, [facility] [place] [facility] [address] [id number] [place] [address] Dec, [facility] [place] [facility] [address] [id number] [place] [address] Dec, [facility] [place] [facility] [address] [id number] [place] [address] Dec, [facility] [place] [facility] [address] [id number] [place] [address] Nov, [facility] [place] [facility] [address] [id number] [place] [address] Oct, [facility] [place] [facility] [address] [id number] [place] [address] Oct, [facility] [place] [facility] [address] [id number] [place] [address] Oct, [facility] [place] [facility] [address] [id number] [place] [address] Oct, [facility] [place] [facility] [address] [id number] [place] [address] Oct, [facility] [place] [facility] [address] [id number] [place] [address] Sep, [facility] [place] [facility] [address] [id number] [place] [address] Sep, [facility] [place] [facility] [address] [id number] [place] [address] Aug, [facility] [place] [facility] [address] [id number] [place] [address] Aug, [facility] [place] [facility] [address] [id number] [place] [address] Aug, [facility] [place] [facility] [address] [id number] [place] [address] Aug, [facility] [place] [facility] [address] [id number] [place] [address] July, [facility] [place] [facility] [address] [id number] [place] [address] Jun, [facility] [place] [facility] [address] [id number] [place] [address] May, [facility] [place] [facility] [address] [id number] [place] [address] May, [facility] [place] [facility] [address] [id number] [place] [address] May, [facility] [place] [facility] [address] [id number] [place] [address] 30 Mar, 2011 [facility] [address] [id number] [place] [address] Feb, [facility] [address] [facility] [id number] [place] [address] Feb, [facility] [address] [facility] [id number] [place] [address] Jan, [facility] [address] [id number] [place] [address] Jan, [facility] [address] [facility] [id number] [place] [address] Jan, [facility] [address] [facility] [id number] [place] [address] Jan, [facility] [address] [facility] [id number] [place] [address] Jan, [facility] [address] [facility] [id number] [place] [address] Dec, [facility] [address] [facility] [id number] [place] [address] Dec, [facility] [address] [facility] [id number] [place] [address] Dec, [facility] [address] [facility] [id number] [place] [address] 18 May, 2009 [facility] [address] [facility] [id number], [place] [address] 15 May, 2009 [facility] [address] [facility] [id number] [place] [address] 17 Apr, 2009 [facility] [address] [facility] [id number] [place] [address] Jan, [facility] [address] [facility] [id number], [place] [address] 11 Apr, 2008 IMMUNIZATIONS No Known Immunizations SOCIAL HISTORY Never Assessed REASON FOR VISIT PLAN OF CARE VITAL SIGNS Height 61 in 2014-05-04 Weight 198 lbs 2014-05-04 Temperature 97.7 degrees Fahrenheit 2014-05-04 Heart Rate 94 bpm 2014-05-04 Respiratory Rate 16 2014-05-04 Blood pressure systolic 140 mmHg 2014-05-04 Blood pressure diastolic 88 mmHg 2014-05-04 MEDICATIONS Unknown Medications RESULTS No Results PROCEDURES Procedure Date Ordered Result Body Site MEASURE BLOOD OXYGEN LEVEL May 04, 2014 INFLUENZA ASSAY W/OPTIC May 04, 2014 INSTRUCTIONS MEDICATIONS ADMINISTERED No Known Medications MEDICAL [...] for cancer Hospitalization History surgeries Hospitalization History [facility] ER, heart- kidney- Stayed at [facility] ICU 12/2017 Hospitalization History [facility] ER 03/2018 Hospitalization History [facility]- Stroke 2 weeks 06/2018
--- OUTSIDE RECORDS SUMMARY | 2018-10-30 20:29 | XMS REPORT ---
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 Active 584045992 Problem Hepatitis C B19.20 Active 84546682 Problem Other chronic pain G89.29 Active 22021352 Problem Urinary frequency R35.0 Active 111969620 Problem Acute right-sided low back pain with right-sided sciatica M54.41 Active 365556518 Problem Lumbago with sciatica, right side M54.41 Active 073408165 Problem 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 E78.2 Active 862858001 Problem Other chronic pain G89.29 Active 11163681 Problem Asymptomatic menopausal state Z78.0 Active 66284110 Problem Episode of recurrent major depressive disorder, unspecified depression episode severity F33.9 Active 284379132 Problem Right renal artery stenosis I70.1 Active [id number] Problem 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 43719357 Problem Anxiety F41.9 Active 63256999 Problem HILARIO (obstructive sleep apnea) G47.33 Active 73876405 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 Active 462331707 Problem Other organ or system involvement in systemic lupus erythematosus M32.19 Active 05462081 Problem Sciatica M54.30 Active 88827635 Problem Seborrheic keratoses L82.1 Active 770462325 Problem Systemic lupus erythematosus, unspecified SLE type, unspecified organ involvement status M32.9 Active 73513954 Problem Chronic anticoagulation Z79.01 Active 982857952 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 Active 089347155 Problem Sialoadenitis, unspecified K11.20 Active 36234668 ALLERGIES No Information ENCOUNTERS Encounter Location Date Diagnosis [facility], [place] [address] [facility] [id number] [place] [address] July, [place] [id number] [place] [address] July, [place] [address] [place] [id number] [place] [address] July, [place] [address] [place] [id number] [place] [address] July, Unexplained weight loss R63.4 and [facility] current use of anticoagulant Z79.01 [place] [address] [place] [id number] [place] [address] July, Other chronic pain G89.29 [place] [address] [place] [id number] [place] [address] Jun, Other chronic pain G89.29 [place] [address] [place] [id number] [place] [address] May, Unexplained weight loss R63.4 [place] [address] [place] [id number] [place] [address] May, Nausea with vomiting, unspecified R11.2 [place] [address] [place] [id number] [place] [address] May, Non-recurrent acute suppurative otitis media of right ear without spontaneous rupture of tympanic membrane H66.001 and Chronic anticoagulation Z79.01 [place] [address] [place] [id number] [place] [address] May, Other chronic pain G89.29 [facility] [id number] [place] [address] Apr, Skin tear of right forearm without complication, initial encounter S51.811A ; Skin tear of left forearm without complication, initial encounter S51.812A and Encounter for immunization Z23 [place] [id number] [place] [address] Apr, [place] [address] [place] [id number] [address] Apr, Diarrhea, unspecified R19.7 ; Nausea with vomiting, unspecified R11.2 and 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 [place] [address] [place] [id number] [place] [address] Apr, Other chronic pain G89.29 [place] [address] [place] [id number] [place] [address] Mar, Other chronic pain G89.29 [place] [address] [place] [id number] [place] [address] Mar, Other chronic pain G89.29 [place] [address] [place] [id number] [place] [address] Mar, [place] [address] [place] [id number] [place] [address] Mar, Other organ or system involvement in systemic lupus erythematosus M32.19 [place] [address] [place] [id number] [place] [address] Mar, Non-recurrent acute suppurative otitis media of right ear without spontaneous rupture of tympanic membrane H66.001 and Chronic anticoagulation Z79.01 [facility] [id number] [place] [address] Feb, Sialoadenitis, unspecified K11.20 [place] [id number] [place] [address] Feb, Other chronic pain G89.29 [place] [address] [place] [id number] [place] [address] Jan, [facility] 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 Z79.01 [place] [id number] [place] [address] Jan, Other chronic pain G89.29 ; Lumbago with sciatica, right side M54.41 ; Other chronic pain G89.29 ; Tobacco abuse Z72.0 ; Tobacco abuse counseling Z71.6 ; 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 E78.2 and 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 [place] [address] [address] Jan, [facility], [place] [address] [address] Dec, [place] [id number] [place] [address] Dec, [place] [id number] [place] [address] Dec, [place] [address] [place] [id number] [place] [address] Dec, 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 E78.2 ; Other chronic [...] involvement in systemic lupus erythematosus M32.19 [facility] [employer] [address] [place] [id number] Dec, Right renal artery stenosis I70.1 ; Other organ or system involvement in systemic lupus erythematosus M32.19 ; Hepatitis C B19.20 ; Tobacco abuse Z72.0 and Weakness R53.1 [facility] [employer] [address] [place] [id number] Dec, [place] [id number] [place] [address] Dec, [place] [id number] [place] [address] Dec, Other organ or system involvement in systemic lupus erythematosus M32.19 [facility] [employer] [address] [place] [id number] Dec, Right renal artery stenosis I70.1 ; Injury of right kidney, sequela S37.001S ; Tobacco abuse Z72.0 ; Systemic lupus erythematosus, unspecified SLE type, unspecified organ involvement status M32.9 ; Hepatitis C B19.20 and Candidiasis of female genitalia B37.3 [place] [address], [place] [address] Dec, Other organ or system involvement in systemic lupus erythematosus M32.19 [place] [address] [place] [id number] [address] Dec, Other organ or system involvement in systemic lupus erythematosus M32.19 [place] [address] [place] [id number] [address] Dec, [place] [address] [place] [id number] [address] Nov, Other organ or system involvement in systemic lupus erythematosus M32.19 [place] [address] [address] Oct, Other organ or system involvement in systemic lupus erythematosus M32.19 [place] [address] [address] Sep, Other organ or system involvement in systemic lupus erythematosus M32.19 [place] [address] [address] Aug, Anxiety F41.9 [place] [address] [address] Aug, Other organ or system involvement in systemic lupus erythematosus M32.19 [place] [address] [address] July, Medicare annual wellness visit, initial Z00.00 ; Anxiety F41.9 ; HILARIO (obstructive sleep apnea) G47.33 ; Hepatitis C B19.20 ; Other chronic pain G89.29 ; Asymptomatic menopausal state Z78.0 and Episode of recurrent major depressive disorder, unspecified depression episode severity F33.9 [facility], [place] [address] [place] [id number] [place] [address] July, Anxiety F41.9 [facility], [place] [address] [place] [id number] [place] [address] July, Other organ or system involvement in systemic lupus erythematosus M32.19 [place] [address] [address] July, [place] [address] [address] Jun, Other organ or system involvement in systemic lupus erythematosus M32.19 ; BMI 40.0-44.9, adult Z68.41 ; Other chronic pain G89.29 and Controlled substance agreement signed Z79.899 [place] [address] [place] [id number] [place] [address] May, Sciatica M54.30 [place] [address] [place] [id number] [place] [address] Apr, Sciatica M54.30 [place] [address] [address] Mar, Sciatica M54.30 [place] [address] [place] [id number] [place] [address] Feb, Sciatica M54.30 [place] [address] [place] [id number] [place] [address] 15 Jan, 2017 Sciatica M54.30 [place] [address] [place] [id number] [place] [address] 14 Jan, 2017 Sciatica M54.30 [place] [address] [place] [id number] [place] [address] Dec, Sciatica M54.30 [place] [address] [place] [id number] [place] [address] Dec, Sciatica M54.30 [facility], [place] [address] [place] [id number] [place] [address] 29 Nov, 2016 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 E78.2 ; Chronic seasonal allergic rhinitis due to other allergen J30.2 and Family history of early CAD Z82.49 [place] [address] [place] [id number] [place] [address] Nov, Sciatica M54.30 [place] [address] [address] 18 Nov, 2016 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 E78.2 ; Chronic seasonal allergic rhinitis due to other allergen J30.2 ; Family history of early CAD Z82.49 ; Other chronic pain G89.29 and Pain in left shoulder M25.512 [place] [address] [address] Nov, Acute pain of left shoulder M25.512 [place] [address] [address] Oct, Sciatica M54.30 [place] [address] [address] Oct, [place] [address] [address] Sep, Sciatica M54.30 [place] [address] [address] Sep, Acute pain of left shoulder M25.512 [place] [address] [address] Sep, Acute pain of left shoulder M25.512 [place] [address] [address] Aug, Sciatica M54.30 [place] [address] [address] Aug, Sciatica M54.30 ; Tobacco abuse Z72.0 and Tobacco abuse counseling Z71.6 [place] [address] [place] [id number] [place] [address] Aug, Acute pain of left shoulder M25.512 [facility] [place] [address] [address] Aug, Contusion of right shoulder, initial encounter S40.011A ; Acute pain of left shoulder M25.512 and Shortness of breath R06.02 [place] [address] [address] Aug, Lumbago with sciatica, right side M54.41 [place] [address] [address] July, [place] [address] [address] July, Lumbago with sciatica, right side M54.41 [place] [address] [address] Jun, Lumbago with sciatica, right side M54.41 [place] [address] [address] May, Lumbago with sciatica, right side M54.41 [facility] [place] [address] [place] [id number] [place] [address] May, Herpes zoster without complication B02.9 [facility] [place] [address] [place] [id number] [place] [address] May, Back pain M54.9 and Acute right-sided low back pain with right-sided sciatica M54.41 [place] [address] [address] Apr, [place] [address] [address] Apr, Lumbago with sciatica, right side M54.41 and Other chronic pain G89.29 [facility], [place] [address] [place] [id number] [place] [address] Apr, [facility], [place] [address] [place] [id number] [place] [address] Mar, [facility], [place] [address] [place] [id number] [place] [address] Mar, [facility], [place] [address] [place] [id number] [place] [address] Feb, [facility] [address] [place] [id number] [place] [address] Jan, Urinary frequency R35.0 [facility], [place] [address] [place] [id number] [place] [address] Jan, [facility], [place] [address] [address] Dec, [facility], [place] [address] [place] [id number] [place] [address] Oct, [facility], [place] [address] [place] [id number] [place] [address] Sep, [facility] [address] [place] [id number] [place] [address] Sep, Foreign body in left foot, initial encounter S90.852A [facility], [place] [address] [place] [id number] [place] [address] Aug, [facility], [place] [address] [place] [id number] [place] [address] July, Sciatica M54.30 [facility], [place] [address] [place] [id number] [place] [address] Jun, [facility], [place] [address] [place] [id number] [place] [address] May, Osteoarthritis M19.90 [facility], [place] [id number] [place] [address] May, [facility], [place] [address] [place] [id number] [place] [address] May, Pain in right hip M25.551 [facility] [address], [place] [address] May, Tinea corporis B35.4 [facility], [place] [address] [place] [id number] [place] [address] 10 Apr, 2015 Pain in right hip M25.551 [facility], [place] [address] [place] [id number] [place] [address] Mar, Pain in right hip M25.551 [facility], [place] [address] [place] [id number] [place] [address] Mar, [facility], [place] [address] [place] [id number] [place] [address] Feb, Pain in right hip M25.551 [facility], [place] [address] [place] [id number] [place] [address] Jan, Acute bronchitis, unspecified organism J20.9 and Cough R05 [facility], [place] [id number] [place] [address] Jan, Pain in right hip M25.551 [facility], [place] [address] [place] [id number] [place] [address] Dec, Pain in right hip M25.551 [facility], [place] [address] [place] [id number] [place] [address] Nov, Acute bronchitis 466.0 [facility], [place] [address] [place] [id number] [place] [address] Nov, [facility], [place] [id number] [place] [address] Oct, [facility], [place] [address] [place] [id number] [place] [address] Sep, [facility] [address] [id number] [place] [address] Aug, [facility] [place] [facility] [address] [id number] [place] [address] July, [facility] [place] [facility] [address] [id number] [place] [address] Jun, [facility] [place] [facility] [address] [id number] [place] [address] Jun, [facility] [place] [facility] [address] [id number] [place] [address] May, [facility] [place] [facility] [address] [facility] [id number] [place] [address] May, [facility] [place] [facility] [address] [facility] [id number] [place] [address] Apr, [facility] [place] [facility] [address] [id number] [place] [address] Apr, [facility] [place] [facility] [address] [facility] [id number] [place] [address] Apr, [facility] [place] [facility] [address] [facility] [id number] [place] [address] Apr, [facility] [place] [facility] [address] [id number] [place] [address] Apr, [facility] [place] [facility] [address] [id number] [place] [address] Apr, [facility] [place] [facility] [address] [id number] [place] [address] Mar, [facility] [place] [facility] [address] [facility] [id number] [place] [address] Mar, [facility] [place] [facility] [address] [id number] [place] [address] Feb, [facility] [place] [facility] [address] [id number] [place] [address] Feb, [facility] [place] [facility] [address] [id number] [place] [address] Feb, [facility] [place] [facility] [address] [facility] [id number] [place] [address] Dec, [facility] [place] [facility] [address] [id number] [place] [address] Dec, [facility] [place] [facility] [address] [id number] [place] [address] Nov, [facility] [place] [facility] [address] [id number] [place] [address] Nov, [facility] [place] [facility] [address] [id number] [place] [address] Nov, [facility] [place] [facility] [address] [id number] [place] [address] Nov, [facility] [place] [facility] [address] [id number] [place] [address] Sep, [facility] [place] [facility] [address] [id number] [place] [address] Sep, [facility] [place] [facility] [address] [id number] [address] Sep, [facility] [place] [facility] [address] [id number], [place] [address] Sep, [facility] [place] [facility] [address] [id number] [place] [address] Aug, [facility] [place] [facility] [address] [id number] [place] [address] Aug, [facility] [place] [facility] [address] [id number] [place] [address] Aug, [facility] [place] [facility] [address] [id number] [place] [address] Aug, [facility] [place] [facility] [address] [id number] [place] [address] July, [facility] [place] [facility] [address] [id number] [place] [address] July, [facility] [place] [facility] [address] [id number] [place] [address] Jun, [facility] [place] [facility] [address] [id number] [place] [address] Jun, [facility] [place] [facility] [address] [id number] [place] [address] Jun, [facility] [place] [facility] [address] [id number] [place] [address] Jun, [facility] [place] [facility] [address] [id number] [place] [address] Jun, [facility] [place] [facility] [address] [id number] [place] [address] Jun, [facility] [place] [facility] [address] [id number] [place] [address] Jun, [facility] [place] [facility] [address] [id number] [place] [address] Jun, [facility] [place] [facility] [address] [id number] [place] [address] May, [facility] [place] [facility] [address] [id number] [place] [address] May, [facility] [place] [facility] [address] [id number] [place] [address] May, [facility] [place] [facility] [address] [id number] [place] [address] May, [facility] [place] [facility] [address] [id number] [place] [address] May, [facility] [place] [facility] [address] [id number] [place] [address] May, [facility] [place] [facility] [address] [id number] [place] [address] Apr, [facility] [place] [facility] [address] [id number] [place] [address] Apr, [facility] [place] [facility] [address] [id number] [place] [address] Apr, [facility] [place] [facility] [address] [id number] [place] [address] Apr, [facility] [place] [facility] [address] [id number] [place] [address] Mar, [facility] [place] [facility] [address] [id number] [place] [address] Mar, [facility] [place] [facility] [address] [id number] [place] [address] Mar, [facility] [place] [facility] [address] [id number] [place] [address] Mar, [facility] [place] [facility] [address] [id number] [place] [address] Mar, [facility] [place] [facility] [address] [id number] [place] [address] Mar, [facility] [place] [facility] [address] [id number] [place] [address] Feb, [facility] [place] [facility] [address] [id number] [place] [address] Feb, [facility] [place] [facility] [address] [id number] [place] [address] Feb, [facility] [place] [facility] [address] [id number] [place] [address] Feb, [facility] [place] [facility] [address] [id number], [place] [address] Feb, [facility] [address] [id number] [place] [address] Feb, [facility] [address] [id number], [place] [address] Feb, [facility] [address] [id number] [place] [address] Feb, [facility] [address] [id number] [place] [address] Feb, [facility] [address] [id number] [place] [address] Feb, [facility] [address] [id number] [place] [address] Feb, [facility] [address] [id number], [place] [address] Feb, [facility] [address] [id number], [place] [address] Jan, [facility] [address] [id number] [place] [address] Jan, [facility] [address] [id number], [place] [address] Jan, [facility] [address] [id number], [place] [address] Jan, [facility] [place] [facility] [address] [id number], [place] [address] Jan, [facility] [place] [facility] [address] [id number], [place] [address] Jan, [facility] [place] [facility] [address] [id number], [place] [address] Jan, [facility] [place] [facility] [address] [id number], [place] [address] Jan, [facility] [place] [facility] [address] [id number] [place] [address] Jan, [facility] [place] [facility] [address] [id number] [place] [address] Jan, [facility] [place] [facility] [address] [id number] [place] [address] Dec, [facility] [place] [facility] [address] [id number] [place] [address] Dec, [facility] [place] [facility] [address] [id number] [place] [address] Nov, [facility] [place] [facility] [address] [id number] [place] [address] Nov, [facility] [place] [facility] [address] [id number] [place] [address] Nov, [facility] [place] [facility] [address] [id number] [place] [address] Nov, [facility] [place] [facility] [address] [address] [id number] [place] [address] Nov, [facility] [place] [facility] [address] [id number] [place] [address] Oct, [facility] [place] [facility] [address] [id number] [place] [address] Oct, [facility] [place] [facility] [address] [id number] [place] [address] Oct, [facility] [place] [facility] [address] [id number] [place] [address] Oct, [facility] [place] [facility] [address] [id number] [place] [address] Oct, [facility] [place] [facility] [address] [id number] [place] [address] Sep, [facility] [place] [facility] [address] [id number] [place] [address] Sep, [facility] [address] [id number] [place] [address] Sep, [facility] [place] [facility] [address] [id number] [place] [address] Sep, [facility] [place] [facility] [address] [id number] [place] [address] Sep, [facility] [place] [facility] [address] [id number] [place] [address] Sep, [facility] [address] [id number] [place] [address] Aug, [facility] [place] [facility] [address] [id number] [place] [address] Aug, [facility] [place] [facility] [address] [id number] [place] [address] July, [facility] [place] [facility] [address] [id number] [place] [address] July, [facility] [address] [id number] [place] [address] July, [facility] [place] [facility] [address] [id number] [place] [address] Jun, [facility] [place] [facility] [address] [id number] [place] [address] Jun, [facility] [place] [facility] [address] [id number] [place] [address] 16 Jun, 2012 [facility] [place] [facility] [address] [id number] [place] [address] Jun, [facility] [place] [facility] [address] [id number] [place] [address] May, [facility] [place] [facility] [address] [id number] [place] [address] May, [facility] [place] [facility] [address] [id number] [place] [address] Apr, [facility] [address] [id number] [place] [address] Apr, [facility] [place] [facility] [address] [id number] [place] [address] Apr, [facility] [place] [facility] [address] [id number] [place] [address] Apr, [facility] [place] [facility] [address] [id number] [place] [address] Apr, [facility] [address] [id number] [place] [address] Apr, [facility] [address] [id number] [place] [id number] Apr, [facility] [place] [facility] [address] [id number] [place] [address] Apr, [facility] [address] [id number] [place] [address] Mar, [facility] [address] [id number] [place] [address] Mar, [facility] [address] [id number] [place] [address] Mar, [facility] [address] [id number] [place] [address] Mar, [facility] [address] [id number] [place] [address] Jan, [facility] [place] [facility] [address] [id number] [place] [address] Jan, [facility] [place] [facility] [address] [id number] [place] [address] Jan, [facility] [place] [facility] [address] [facility] [id number] [place] [address] Jan, [facility] [place] [facility] [address] [id number] [place] [address] Jan, [facility] [place] [facility] [address] [id number] [place] [address] Dec, [facility] [place] [facility] [address] [id number] [place] [address] Dec, [facility] [place] [facility] [address] [id number] [place] [address] Dec, [facility] [place] [facility] [address] [id number] [place] [address] Dec, [facility] [place] [facility] [address] [id number] [place] [address] Nov, [facility] [place] [facility] [address] [id number] [place] [address] Oct, [facility] [place] [facility] [address] [id number] [place] [address] Oct, [facility] [place] [facility] [address] [id number] [place] [address] Oct, [facility] [place] [facility] [address] [id number] [place] [address] Oct, [facility] [place] [facility] [address] [id number], [place] [address] Oct, [facility] [place] [facility] [address] [id number], [place] [address] Sep, [facility] [place] [facility] [address] [id number] [place] [address] Sep, [facility] [place] [facility] [address] [id number] [place] [address] Aug, [facility] [place] [facility] [address] [id number] [place] [address] Aug, [facility] [place] [facility] [address] [id number] [place] [address] Aug, [facility] [place] [facility] [address] [id number] [place] [address] Aug, [facility] [place] [facility] [address] [id number] [place] [address] July, [facility] [place] [facility] [address] [id number] [place] [address] Jun, [facility] [place] [facility] [address] [id number] [place] [address] 28 May, 2011 [facility] [place] [facility] [address] [id number] [place] [address] May, [facility] [place] [facility] [address] [id number] [place] [address] May, [facility] [place] [facility] [address] [id number] [place] [address] 30 Mar, 2011 [facility] [place] [facility] [address] [id number] [place] [address] Feb, [facility] [place] [facility] [address] [id number] [place] [address] Feb, [facility] [place] [facility] [address] [id number] [place] [address] Jan, [facility] [place] [facility] [address] [id number] [place] [address] 28 Jan, 2011 [facility] [place] [facility] [address] [id number] [place] [address] 18 Jan, 2011 [facility] [place] [facility] [address] [id number] [place] [address] 03 Jan, 2011 [facility] [place] [facility] [address] [id number] [place] [address] 30 Jan, 2010 [facility] [place] [facility] [address] [id number] [place] [address] 20 Dec, 2009 [facility] [place] [address] [id number] [address] 13 Dec, 2009 [facility] [place] [address] [id number] [address] 13 Dec, 2009 [facility] [place] [id number], [place] [address] 18 May, 2009 [facility] [place] [id number], [place] [address] 15 May, 2009 [facility] [place] [id number], [place] [address] 17 Apr, 2009 [facility] [place] [id number], [place] [address] Jan, [facility] [place] [address] [id number], [place] [address] Apr, IMMUNIZATIONS No Known Immunizations SOCIAL HISTORY Never Assessed REASON FOR VISIT [facility] [place] PLAN OF CARE VITAL SIGNS MEDICATIONS Unknown [...] for cancer Hospitalization History surgeries Hospitalization History [facility] ER, heart- kidney- Stayed at [facility] ICU 12/2017 Hospitalization History [facility] ER 03/2018
--- OUTSIDE RECORDS SUMMARY | 2018-10-30 20:29 | XMS REPORT ---
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 Active 558012153 Problem Lumbago with sciatica, right side M54.41 Active 163195402 Problem Other chronic pain G89.29 Active 60149113 Problem Other chronic pain G89.29 Active 87484727 Problem Acute right-sided low back pain with right-sided sciatica M54.41 Active 006832594 Problem Other organ or system involvement in systemic lupus erythematosus M32.19 Active 65832984 Problem Sciatica M54.30 Active 12824548 Problem 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 E78.2 Active 026683808 Problem Episode of recurrent major depressive disorder, unspecified depression episode severity F33.9 Active 184525976 Problem Right renal artery stenosis I70.1 Active [id number] Problem Systemic lupus erythematosus, unspecified SLE type, unspecified organ involvement status M32.9 Active 74788174 Problem prison current use of anticoagulant Z79.01 Active 084060768 Problem Asymptomatic menopausal state Z78.0 Active 53622310 Problem Seborrheic keratoses L82.1 Active 777965321 Problem Cerebrovascular accident (CVA) due to occlusion of other cerebral artery I63.59 Active 933086263 Problem Anxiety F41.9 Active 58695666 Problem HILARIO (obstructive sleep apnea) G47.33 Active 74859972 Problem Hepatitis C B19.20 Active 94690320 Problem Chronic anticoagulation Z79.01 Active 864531073 Problem 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 Active 708952619 Problem Sialoadenitis, unspecified K11.20 Active 82311919 Problem 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 72519593 ALLERGIES Substance Reaction Event Type Date Status Cymbalta 60 Mg Enteric Coated Capsule Unknown Non Drug Allergy 14 Jun, 2014 Active ENCOUNTERS Encounter Location Date Diagnosis [facility] [id number] [place] [address] Sep, [facility] [id number] [place] [address] Aug, [facility] [id number] [place] [address] Aug, Other chronic pain G89.29 [facility] [id number] [place] [address] July, prison current use of anticoagulant Z79.01 and Cerebrovascular accident (CVA) due to occlusion of other cerebral artery I63.59 [facility] [id number] [place] [address] July, Renal insufficiency N28.9 [facility] [id number] [place] [address] July, Cerebrovascular accident (CVA) due to occlusion of other cerebral artery I63.59 and Unexplained weight loss R63.4 [facility] [id number] [place] [address] July, [facility] [id number] [place] [address] July, [facility] [id number] [place] [address] July, Unexplained weight loss R63.4 and prison current use of anticoagulant Z79.01 [facility] [id number] [place] [address] July, Other chronic pain G89.29 [facility] [id number] [place] [address] Jun, Other chronic pain G89.29 [facility] [id number] [place] [address] May, Unexplained weight loss R63.4 [facility] [id number] [place] [address] May, Nausea with vomiting, unspecified R11.2 [facility] [id number] [place] [address] May, Non-recurrent acute suppurative otitis media of right ear without spontaneous rupture of tympanic membrane H66.001 and Chronic anticoagulation Z79.01 [facility] [address] [address] May, Other chronic pain G89.29 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 [facility] [id number] [place] [address] Apr, Other chronic pain G89.29 [facility] [id number] [place] [address] Mar, Other chronic pain G89.29 [facility] [address] [address] Mar, Other chronic pain G89.29 [facility] [id number] [place] [address] Mar, [facility] [facility] [address] [address] Mar, Other organ or system involvement in systemic lupus erythematosus M32.19 [facility] [id number] [place] [address] Mar, Non-recurrent acute suppurative otitis media of right ear without spontaneous rupture of tympanic membrane H66.001 and Chronic anticoagulation Z79.01 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 [facility] [id number] [place] [address] Jan, Other chronic pain G89.29 ; Lumbago with sciatica, right side M54.41 ; Other chronic pain G89.29 ; Tobacco abuse Z72.0 ; Tobacco abuse counseling Z71.6 ; 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 E78.2 and 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 [facility] [id number] [place] [address] Jan, [facility] [id number] [place] [address] Dec, [facility] [id number] [place] [address] Dec, [facility] [id number] [place] [address] Dec, [facility] [id number] [place] [address] Dec, 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 E78.2 ; Other chronic [...] involvement in systemic lupus erythematosus M32.19 [facility] [address] [place] [id number] Dec, Right renal artery stenosis I70.1 ; Other organ or system involvement in systemic lupus erythematosus M32.19 ; Hepatitis C B19.20 ; Tobacco abuse Z72.0 and Weakness R53.1 [facility] [address] [place] [id number] Dec, [facility] [id number] [place] [address] Dec, [facility] [id number] [place] [address] Dec, Other organ or system involvement in systemic lupus erythematosus M32.19 [facility] [address] [place] [id number] Dec, Right renal artery stenosis I70.1 ; Injury of right kidney, sequela S37.001S ; Tobacco abuse Z72.0 ; Systemic lupus erythematosus, unspecified SLE type, unspecified organ involvement status M32.9 ; Hepatitis C B19.20 and Candidiasis of female genitalia B37.3 [facility] [id number] [place] [address] Dec, Other organ or system involvement in systemic lupus erythematosus M32.19 [facility] [address] [address] Dec, Other organ or system involvement in systemic lupus erythematosus M32.19 [facility] [id number] [address] Dec, [facility] [id number] [place] [address] Nov, Other organ or system involvement in systemic lupus erythematosus M32.19 [facility] [id number] [address] Oct, Other organ or system involvement in systemic lupus erythematosus M32.19 [facility] [address] [address] Sep, Other organ or system involvement in systemic lupus erythematosus M32.19 [facility] [id number] [address] Aug, Anxiety F41.9 [facility] [address] [address] Aug, Other organ or system involvement in systemic lupus erythematosus M32.19 [facility] [address] [address] July, Medicare annual wellness visit, initial Z00.00 ; Anxiety F41.9 ; HILARIO (obstructive sleep apnea) G47.33 ; Hepatitis C B19.20 ; Other chronic pain G89.29 ; Asymptomatic menopausal state Z78.0 and Episode of recurrent major depressive disorder, unspecified depression episode severity F33.9 [facility] [address] [address] July, Anxiety F41.9 [facility] [address] [address] July, Other organ or system involvement in systemic lupus erythematosus M32.19 [facility] [address], [place] [address] July, [facility] [id number] [address] Jun, Other organ or system involvement in systemic lupus erythematosus M32.19 ; BMI 40.0-44.9, adult Z68.41 ; Other chronic pain G89.29 and Controlled substance agreement signed Z79.899 [facility] [address], [place] [address] May, Sciatica M54.30 [facility] [id number] [place] [address] Apr, Sciatica M54.30 [facility] [id number] [place] [address] Mar, Sciatica M54.30 [facility] [id number] [place] [address] Feb, Sciatica M54.30 [facility] [address] [address] Jan, Sciatica M54.30 [facility] [address] [address] 14 Jan, 2017 Sciatica M54.30 [facility] [id number] [place] [address] Dec, Sciatica M54.30 [facility] [id number] [place] [address] 18 Dec, 2016 Sciatica M54.30 [facility] [id number] [place] [address] 29 Nov, 2016 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 E78.2 ; Chronic seasonal allergic rhinitis due to other allergen J30.2 and Family history of early CAD Z82.49 [facility] [id number] [place] [address] 21 Nov, 2016 Sciatica M54.30 [facility] [id number] [place] [address] 18 Nov, 2016 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 E78.2 ; Chronic seasonal allergic rhinitis due to other allergen J30.2 ; Family history of early CAD Z82.49 ; Other chronic pain G89.29 and Pain in left shoulder M25.512 [facility] [id number] [place] [address] 11 Nov, 2016 Acute pain of left shoulder M25.512 [facility] [facility] [address] [place] [address] Oct, Sciatica M54.30 [facility] [id number] [place] [address] Oct, [facility] [id number] [place] [address] Sep, Sciatica M54.30 [facility] [id number] [place] [address] Sep, Acute pain of left shoulder M25.512 [facility] [id number] [place] [address] Sep, Acute pain of left shoulder M25.512 [facility] [id number] [place] [address] Aug, Sciatica M54.30 [facility] [id number] [place] [address] Aug, Sciatica M54.30 ; Tobacco abuse Z72.0 and Tobacco abuse counseling Z71.6 [facility] [id number] [place] [address] Aug, Acute pain of left shoulder M25.512 [facility] [address] [place] [address] Aug, Contusion of right shoulder, initial encounter S40.011A ; Acute pain of left shoulder M25.512 and Shortness of breath R06.02 [facility] [address] [place] [address] Aug, Lumbago with sciatica, right side M54.41 [facility] [id number] [place] [address] July, [facility] [id number] [place] [address] July, Lumbago with sciatica, right side M54.41 [facility] [id number] [place] [address] Jun, Lumbago with sciatica, right side M54.41 [facility] [id number] [place] [address] May, Lumbago with sciatica, right side M54.41 [facility] [address] [address] May, Herpes zoster without complication B02.9 [facility] [address] [address] May, Back pain M54.9 and Acute right-sided low back pain with right-sided sciatica M54.41 [facility] [address] [address] Apr, [facility] [address] [address] Apr, Lumbago with sciatica, right side M54.41 and Other chronic pain G89.29 [facility] [address] [address] Apr, [facility] [id number] [place] [address] Mar, [facility] [address] [address] Mar, [facility] [id number] [place] [address] Feb, [facility] [address] [address] Jan, Urinary frequency R35.0 [facility] [address] [address] Jan, [facility] [address] [address] Dec, [facility] [address], [place] [address] Oct, [facility] [id number] [place] [address] Sep, [facility] [address] [place] [address] Sep, Foreign body in left foot, initial encounter S90.852A [facility] [id number] [place] [address] Aug, [facility] [id number] [place] [address] July, Sciatica M54.30 [facility] [id number] [place] [address] Jun, [facility] [id number] [place] [address] May, Osteoarthritis M19.90 [facility] [id number] [place] [address] May, [facility] [id number] [place] [address] May, Pain in right hip M25.551 [facility] [address], [place] [address] May, Tinea corporis B35.4 [facility] [address], [place] [address] Apr, Pain in right hip M25.551 [facility] [id number] [place] [address] Mar, Pain in right hip M25.551 [facility] [address], [place] [address] Mar, [facility] [id number] [place] [address] Feb, Pain in right hip M25.551 [facility] [id number] [place] [address] Jan, Acute bronchitis, unspecified organism J20.9 and Cough R05 [facility] [id number] [place] [address] Jan, Pain in right hip M25.551 [facility] [id number] [place] [address] Dec, Pain in right hip M25.551 [facility] [id number] [place] [address] Nov, Acute bronchitis 466.0 [facility] [id number] [place] [address] Nov, [facility] [id number] [place] [address] Oct, [facility] [id number] [place] [address] Sep, [facility] [id number] [place] [address] Aug, [facility] [address], [place] [address] July, [facility] [id number] [place] [address] Jun, [facility] [id number] [place] [address] Jun, [facility] [id number] [place] [address] May, [facility] [address], [place] [address] May, [facility] [id number] [place] [address], [place] [address] 17 Apr, 2014 [facility] [place] [facility] [address] [id number] [place] [address] Apr, 2014 [facility] [place] [facility] [address] [id number] [place] [address] Apr, 2014 [facility] [place] [facility] [address] [id number] [place] [address] Apr, 2014 [facility] [place] [facility] [address] [id number] [place] [address] Apr, 2014 [facility] [place] [facility] [address] [id number] [place] [address] Apr, 2014 [facility] [place] [facility] [address] [facility] [id number] [place] [address] Mar, [facility] [place] [facility] [address] [facility] [id number] [place] [address] Mar, [facility] [place] [facility] [address] [facility] [id number] [place] [address] Feb, [facility] [place] [facility] [address] [facility] [id number] [place] [address] Feb, [facility] [place] [facility] [address] [facility] [id number] [place] [address] Feb, [facility] [place] [facility] [address] [id number] [place] [address] Dec, [facility] [place] [facility] [address] [id number] [place] [address] Dec, [facility] [place] [facility] [address] [id number] [place] [address] Nov, [facility] [place] [facility] [address] [id number] [place] [address] 17 Nov, 2013 [facility] [place] [facility] [address] [facility] [id number] [place] [address] Nov, [facility] [place] [facility] [address] [id number] [place] [address] Nov, [facility] [place] [facility] [address] [id number] [place] [address] Sep, [facility] [place] [facility] [address] [id number] [place] [address] Sep, [facility] [place] [facility] [address] [id number] [place] [address] Sep, [facility] [place] [facility] [address] [id number] [place] [address] Sep, [facility] [place] [facility] [address] [id number] [place] [address] Aug, [facility] [place] [facility] [address] [id number] [place] [address] Aug, [facility] [place] [facility] [address] [id number] [place] [address] Aug, [facility] [place] [facility] [address] [id number] [place] [address] Aug, [facility] [place] [facility] [address] [id number] [place] [address] July, [facility] [place] [facility] [address] [id number] [place] [address] July, [facility] [place] [facility] [address] [id number] [place] [address] Jun, [facility] [place] [facility] [address] [id number] [place] [address] Jun, [facility] [place] [facility] [address] [id number] [place] [address] Jun, [facility] [place] [facility] [address] [id number] [place] [address] Jun, [facility] [place] [facility] [address] [id number] [address] Jun, [facility] [place] [facility] [address] [id number] [place] [address] Jun, [facility] [place] [facility] [address] [id number] [place] [address] Jun, [facility] [place] [facility] [address] [id number] [place] [address] Jun, [facility] [place] [facility] [address] [id number] [place] [address] May, [facility] [place] [facility] [address] [id number] [place] [address] May, [facility] [place] [facility] [address] [id number] [place] [address] May, [facility] [place] [facility] [address] [facility] [id number] [place] [address] May, [facility] [place] [facility] [address] [facility] [id number] [place] [address] May, [facility] [place] [facility] [address] [id number] [place] [address] May, [facility] [place] [facility] [address] [facility] [id number] [place] [address] Apr, [facility] [place] [facility] [address] [id number] [place] [address] Apr, [facility] [place] [facility] [address] [id number] [place] [address] Apr, [facility] [place] [facility] [address] [id number] [place] [address] Apr, [facility] [place] [facility] [address] [id number] [place] [address] Mar, [facility] [place] [facility] [address] [id number] [place] [address] Mar, [facility] [place] [facility] [address] [id number] [place] [address] Mar, [facility] [address] [id number] [place] [address] Mar, [facility] [address] [id number] [place] [address] Mar, [facility] [address] [id number] [place] [address] Mar, [facility] [address] [id number] [place] [address] Feb, [facility] [address] [id number] [place] [address] Feb, [facility] [address] [id number] [place] [address] Feb, [facility] [address] [id number] [place] [address] Feb, [facility] [address] [id number] [place] [address] Feb, [facility] [address] [id number] [place] [address] Feb, [facility] [address] [id number] [place] [address] Feb, [facility] [address] [id number] [place] [address] Feb, [facility] [address] [id number] [place] [address] Feb, [facility] [address] [id number] [place] [address] Feb, [facility] [address] [id number] [place] [address] Feb, [facility] [address] [id number] [place] [address] Feb, [facility] [place] [facility] [address] [id number] [place] [address] Jan, [facility] [place] [facility] [address] [id number] [place] [address] Jan, [facility] [place] [facility] [address] [id number] [place] [address] Jan, [facility] [place] [facility] [address] [id number] [place] [address] Jan, [facility] [place] [facility] [address] [id number] [place] [address] Jan, [facility] [place] [facility] [address] [id number] [place] [address] Jan, [facility] [place] [facility] [address] [id number] [place] [address] Jan, [facility] [place] [facility] [address] [id number] [place] [address] Jan, [facility] [place] [facility] [address] [id number] [place] [address] Jan, [facility] [place] [facility] [address] [id number] [place] [address] Jan, [facility] [place] [facility] [address] [id number] [address] Dec, [facility] [place] [facility] [address] [id number], [place] [address] Dec, [facility] [place] [facility] [address] [id number] [place] [address] Nov, [facility] [place] [facility] [address] [id number] [place] [address] Nov, [facility] [place] [facility] [address] [id number] [place] [address] Nov, [facility] [place] [facility] [address] [id number] [place] [address] Nov, [facility] [address] [id number] [place] [address] Nov, [facility] [place] [facility] [address] [id number] [place] [address] Oct, [facility] [address] [id number] [place] [address] Oct, [facility] [address] [id number] [place] [address] Oct, [facility] [address] [id number] [place] [address] Oct, [facility] [address] [id number] [place] [address] Oct, [facility] [address] [id number] [place] [address] Sep, [facility] [address] [id number] [place] [address] Sep, [facility] [place] [facility] [address] [id number] [place] [address] Sep, [facility] [address] [id number] [place] [address] Sep, [facility] [place] [facility] [address] [id number] [place] [address] Sep, [facility] [place] [facility] [address] [id number] [place] [address] Sep, [facility] [place] [facility] [address] [id number] [place] [address] Aug, [facility] [place] [facility] [address] [id number] [place] [address] Aug, [facility] [place] [facility] [address] [id number] [place] [address] July, [facility] [address] [id number] [place] [address] July, [facility] [place] [facility] [address] [id number] [place] [address] July, [facility] [address] [id number] [place] [address] Jun, [facility] [place] [facility] [address] [id number] [place] [address] Jun, [facility] [place] [facility] [address] [id number] [place] [address] Jun, [facility] [place] [facility] [address] [id number] [place] [address] Jun, [facility] [place] [facility] [address] [id number] [place] [address] May, [facility] [place] [facility] [address] [id number], [place] [address] May, [facility] [place] [facility] [address] [id number] [place] [address] Apr, [facility] [place] [facility] [address] [facility] [id number], [place] [address] Apr, [facility] [place] [facility] [address] [id number] [place] [address] Apr, [facility] [place] [facility] [address] [id number], [place] [address] Apr, [facility] [place] [facility] [address] [id number] [place] [address] Apr, [facility] [place] [facility] [address] [id number] [place] [address] Apr, [facility] [place] [facility] [address] [id number] [place] [id number] Apr, [facility] [place] [facility] [address] [id number] [place] [address] Apr, [facility] [address] [id number] [place] [address] Mar, [facility] [place] [facility] [address] [id number] [place] [address] Mar, [facility] [address] [id number] [place] [address] Mar, [facility] [address] [id number] [place] [address] Mar, [facility] [id number] [place] [address], [place] [address] Jan, [facility] [address] [id number] [place] [address] Jan, [facility] [address] [facility] [id number] [place] [address] Jan, [facility] [address] [id number] [place] [address] Jan, [facility] [address] [facility] [id number] [place] [address] Jan, [facility] [address] [facility] [id number] [place] [address] Dec, [facility] [place] [facility] [address] [id number] [place] [address] Dec, [facility] [place] [facility] [address] [id number] [place] [address] Dec, [facility] [place] [facility] [address] [id number] [place] [address] Dec, [facility] [place] [facility] [address] [facility] [id number] [place] [address] Nov, [facility] [place] [facility] [address] [id number] [place] [address] Oct, [facility] [place] [facility] [address] [id number] [place] [address] Oct, [facility] [place] [facility] [address] [id number] [place] [address] Oct, [facility] [place] [facility] [address] [id number] [place] [address] Oct, [facility] [place] [facility] [address] [id number] [place] [address] Oct, [facility] [place] [facility] [address] [id number] [place] [address] Sep, [facility] [place] [facility] [address] [id number] [place] [address] Sep, [facility] [place] [facility] [address] [id number] [place] [address] Aug, [facility] [place] [facility] [address] [id number] [place] [address] Aug, [facility] [place] [facility] [address] [id number] [place] [address] Aug, [facility] [place] [facility] [address] [id number] [place] [address] Aug, [facility] [place] [facility] [address] [id number] [place] [address] July, [facility] [place] [facility] [address] [id number] [place] [address] Jun, [facility] [place] [facility] [address] [id number] [place] [address] May, [facility] [place] [facility] [address] [id number] [place] [address] May, [facility] [place] [facility] [address] [id number] [place] [address] May, [facility] [place] [facility] [address] [id number], [place] [address] Mar, [facility] [address] [facility] [id number] [place] [address] Feb, [facility] [address] [facility] [id number], [place] [address] Feb, [facility] [address] [facility] [id number] [place] [address] Jan, [facility] [address] [facility] [id number], [place] [address] Jan, [facility] [address] [facility] [id number] [place] [address] Jan, [facility] [address] [facility] [id number] [place] [address] Jan, [facility] [id number] [address] Jan, [facility] [address] [facility] [id number], [place] [address] Dec, [facility] [id number], [place] [address] Dec, [facility] [address] [facility] [id number], [place] [address] Dec, [facility] [address] [facility] [id number], [place] [address] May, [facility] [address] [facility] [id number], [place] [address] 15 May, 2009 [facility] [address] [facility] [id number], [place] [address] 17 Apr, 2009 [facility] [address] [facility] [id number], [place] [address] Jan, [facility] [id number], [place] [address] 11 Apr, 2008 IMMUNIZATIONS No Known Immunizations SOCIAL HISTORY Never Assessed REASON FOR VISIT [facility] PLAN OF CARE VITAL SIGNS MEDICATIONS Medication Instructions Dosage Frequency Start Date End Date Duration Status Bactrim DS 800-160 mg 1 tablet by Oral route 2 times per day for 7 day(s) Aug, Active Cipro 500 mg 1 tablet by Oral route every 12 hours for 10 day(s) Sep, Active Symbicort 160-4.5 mcg/actuation inhale 2 puffs by Inhalation route in the morning and evening 2 times per day use until cough is resolved Apr, Active PredniSONE 20 mg 1 tablet by Oral route 2 times per day for 5 day(s) Jan, Active Zocor 40 mg 1 tablet 1 time per day Nov, Active [place] 5-325 mg take 1 tablet by oral route every 6 hours as needed for pain PRN May, Active Tessalon Perles 100 mg take 1 capsule by Oral route 3 times per day PRN cough Apr, Active Loratadine 10 mg take 1 tablet by Oral route 1 time per day take at hs 16 Mar, 2014 Active Zithromax Z-Enrique 250 mg 2 tablet by Oral route 1 time per day for 1 days then take 1 tab daily on days 2-5 Apr, Active RESULTS No Results PROCEDURES No Known [...] for cancer Hospitalization History surgeries Hospitalization History [facility] ER, heart- kidney- Stayed at [facility] ICU 12/2017 Hospitalization History [facility] 03/2018 Hospitalization History [facility]- Stroke 2 weeks 06/2018
--- OUTSIDE RECORDS SUMMARY | 2018-10-30 20:30 | XMS REPORT ---
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 Active 904369915 Problem Lumbago with sciatica, right side M54.41 Active 248678322 Problem Other chronic pain G89.29 Active 32090571 Problem Other chronic pain G89.29 Active 11750694 Problem Acute right-sided low back pain with right-sided sciatica M54.41 Active 823008601 Problem Anxiety F41.9 Active 02893965 Problem Asymptomatic menopausal state Z78.0 Active 48315190 Problem Episode of recurrent major depressive disorder, unspecified depression episode severity F33.9 Active 667965385 Problem Sialoadenitis, unspecified K11.20 Active 57785391 Problem Other organ or system involvement in systemic lupus erythematosus M32.19 Active 69871326 Problem Sciatica M54.30 Active 96369261 Problem 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 [id number] [place] [address] Jun, Other chronic pain G89.29 [facility] [id number] [place] [address] May, Unexplained weight loss R63.4 [facility] [id number] [place] [address] May, Nausea with vomiting, unspecified R11.2 [facility] [id number] [place] [address] May, Non-recurrent acute suppurative otitis media of right ear without spontaneous rupture of tympanic membrane H66.001 and Chronic anticoagulation Z79.01 [facility] [id number] [place] [address] May, Other chronic pain G89.29 [facility] [id number] [place] [address] Apr, Skin tear of right forearm without complication, initial encounter S51.811A ; Skin tear of left forearm without complication, initial encounter S51.812A and Encounter for immunization Z23 [facility] [id number] [place] [address] Apr, [facility] [id number] [place] [address] Apr, Diarrhea, unspecified R19.7 ; Nausea with vomiting, unspecified R11.2 and 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 [facility] [id number] [place] [address] Apr, Other chronic pain G89.29 [facility] [id number] [place] [address] Mar, Other chronic pain G89.29 [facility] [id number] [place] [address] Mar, Other chronic pain G89.29 [facility] [id number] [place] [address] Mar, [facility] [id number] [place] [address] Mar, Other organ or system involvement in systemic lupus erythematosus M32.19 [facility] [address] [place] [address] Mar, Non-recurrent acute suppurative otitis media of right ear without spontaneous rupture of tympanic membrane H66.001 and Chronic anticoagulation Z79.01 [facility] [id number] [place] [address] Feb, Sialoadenitis, unspecified K11.20 [facility] [id number] [place] [address] Feb, Other chronic pain G89.29 [facility] [id number] [place] [address] Jan, 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.01 [facility] [id number] [place] [address] Jan, Other chronic pain G89.29 ; Lumbago with sciatica, right side M54.41 ; Other chronic pain G89.29 ; Tobacco abuse Z72.0 ; Tobacco abuse counseling Z71.6 ; 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 E78.2 and longterm 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 Z79.01 [facility] [address] [address] Jan, [facility] [id number] [place] [address] Dec, [facility] [id number] [place] [address] Dec, [facility] [id number] [place] [address] Dec, [facility] [address] [place] [address] Dec, 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 E78.2 ; Other chronic [...] involvement in systemic lupus erythematosus M32.19 [facility] [address] [place] [id number] Dec, Right renal artery stenosis I70.1 ; Other organ or system involvement in systemic lupus erythematosus M32.19 ; Hepatitis C B19.20 ; Tobacco abuse Z72.0 and Weakness R53.1 [facility] [address] [place] [id number] Dec, [facility] [id number] [place] [address] Dec, [facility] [id number] [place] [address] Dec, Other organ or system involvement in systemic lupus erythematosus M32.19 [facility] [address] [place] [id number] Dec, Right renal artery stenosis I70.1 ; Injury of right kidney, sequela S37.001S ; Tobacco abuse Z72.0 ; Systemic lupus erythematosus, unspecified SLE type, unspecified organ involvement status M32.9 ; Hepatitis C B19.20 and Candidiasis of female genitalia B37.3 [facility] [address] [place] [address] Dec, Other organ or system involvement in systemic lupus erythematosus M32.19 [facility] [id number] [place] [address] Dec, Other organ or system involvement in systemic lupus erythematosus M32.19 [facility] [id number] [place] [address] Dec, [facility] [address] [id number] [address] Nov, Other organ or system involvement in systemic lupus erythematosus M32.19 [facility] [address] [address] Oct, Other organ or system involvement in systemic lupus erythematosus M32.19 [facility] [address] [address] Sep, Other organ or system involvement in systemic lupus erythematosus M32.19 [facility] [address] [address] Aug, Anxiety F41.9 [facility] [address] [place] [address] Aug, Other organ or system involvement in systemic lupus erythematosus M32.19 [facility] [address] [address] July, Medicare annual wellness visit, initial Z00.00 ; Anxiety F41.9 ; HILARIO (obstructive sleep apnea) G47.33 ; Hepatitis C B19.20 ; Other chronic pain G89.29 ; Asymptomatic menopausal state Z78.0 and Episode of recurrent major depressive disorder, unspecified depression episode severity F33.9 [facility] [address] [id number] [address] July, Anxiety F41.9 [facility] [address] [address] July, Other organ or system involvement in systemic lupus erythematosus M32.19 [facility] [address] [address] July, [facility] [address] [address] Jun, Other organ or system involvement in systemic lupus erythematosus M32.19 ; BMI 40.0-44.9, adult Z68.41 ; Other chronic pain G89.29 and Controlled substance agreement signed Z79.899 [facility] [address] [address] May, Sciatica M54.30 [facility] [address] [address] Apr, Sciatica M54.30 [facility] [address] [address] Mar, Sciatica M54.30 [facility] [address] [address] Feb, Sciatica M54.30 [facility] [address] [address] 15 Jan, 2017 Sciatica M54.30 [facility] [address] [address] 14 Jan, 2017 Sciatica M54.30 [facility] [address] [address] 19 Dec, 2016 Sciatica M54.30 [facility] [address] [address] 18 Dec, 2016 Sciatica M54.30 [facility] [id number] [place] [address] 29 Nov, 2016 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 E78.2 ; Chronic seasonal allergic rhinitis due to other allergen J30.2 and Family history of early CAD Z82.49 [facility] [id number] [place] [address] 21 Nov, 2016 Sciatica M54.30 [facility] [address] [address] 18 Nov, 2016 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 E78.2 ; Chronic seasonal allergic rhinitis due to other allergen J30.2 ; Family history of early CAD Z82.49 ; Other chronic pain G89.29 and Pain in left shoulder M25.512 [facility] [address] [place] [address] Nov, Acute pain of left shoulder M25.512 [facility] [id number] [place] [address] Oct, Sciatica M54.30 [facility] [id number] [place] [address] Oct, [facility] [address] [address] Sep, Sciatica M54.30 [facility] [id number] [place] [address] Sep, Acute pain of left shoulder M25.512 [facility] [id number] [place] [address] Sep, Acute pain of left shoulder M25.512 [facility] [id number] [place] [address] Aug, Sciatica M54.30 [facility] [id number] [place] [address] Aug, Sciatica M54.30 ; Tobacco abuse Z72.0 and Tobacco abuse counseling Z71.6 [facility] [id number] [place] [address] Aug, Acute pain of left shoulder M25.512 [facility] [id number] [place] [address] Aug, Contusion of right shoulder, initial encounter S40.011A ; Acute pain of left shoulder M25.512 and Shortness of breath R06.02 [facility] [id number] [place] [address] Aug, Lumbago with sciatica, right side M54.41 [facility] [id number] [place] [address] July, [facility] [address] [place] [address] July, Lumbago with sciatica, right side M54.41 [facility] [address] [address] Jun, Lumbago with sciatica, right side M54.41 [facility] [id number] [place] [address] May, Lumbago with sciatica, right side M54.41 [facility] [address] [address] May, Herpes zoster without complication B02.9 [facility] [address] [address] May, Back pain M54.9 and Acute right-sided low back pain with right-sided sciatica M54.41 [facility] [id number] [place] [address] Apr, [facility] [address] [address] Apr, Lumbago with sciatica, right side M54.41 and Other chronic pain G89.29 [facility] [id number] [place] [address] Apr, [facility] [id number] [place] [address] Mar, [facility] [id number] [place] [address] Mar, [facility] [address] [address] Feb, [facility] [id number] [place] [address] Jan, Urinary frequency R35.0 [facility] [address] [address] Jan, [facility] [address] [address] Dec, [facility] [id number] [place] [address] Oct, [facility] [id number] [place] [address] Sep, [facility] [id number] [place] [address] Sep, Foreign body in left foot, initial encounter S90.852A [facility] [id number] [place] [address] Aug, [facility] [id number] [place] [address] July, Sciatica M54.30 [facility] [id number] [place] [address] Jun, [facility] [id number] [place] [address] May, Osteoarthritis M19.90 [facility] [id number] [place] [address] May, [facility] [id number] [place] [address] May, Pain in right hip M25.551 [facility] [address] [place] [address] May, Tinea corporis B35.4 [facility] [id number] [place] [address] 10 Apr, 2015 Pain in right hip M25.551 [facility] [id number] [place] [address] Mar, Pain in right hip M25.551 [facility] [id number] [address] Mar, [facility] [id number] [place] [address] Feb, Pain in right hip M25.551 [facility] [id number] [place] [address] Jan, Acute bronchitis, unspecified organism J20.9 and Cough R05 [facility] [id number] [place] [address] Jan, Pain in right hip M25.551 [facility] [id number] [place] [address] Dec, Pain in right hip M25.551 [facility] [id number] [place] [address] Nov, Acute bronchitis 466.0 [facility] [id number] [place] [address] Nov, [facility] [address] [place] [address] Oct, [facility] [id number] [place] [address] Sep, [facility] [address] [place] [address] Aug, [facility] [id number] [place] [address] July, [facility] [address] [place] [address] Jun, [facility] [id number] [place] [address] Jun, [facility] [address], [place] [address] May, [facility] [id number] [place] [address] May, [facility] [place] [facility] [address] [id number] [place] [address] Apr, 2014 [facility] [place] [facility] [address] [id number] [place] [address] Apr, 2014 [facility] [place] [facility] [address] [id number] [place] [address] Apr, 2014 [facility] [place] [facility] [address] [id number] [place] [address] Apr, 2014 [facility] [place] [facility] [address] [id number] [place] [address] Apr, 2014 [facility] [place] [facility] [address] [facility] [id number] [place] [address] Apr, 2014 [facility] [place] [facility] [address] [facility] [id number] [place] [address] Mar, [facility] [place] [facility] [address] [facility] [id number] [place] [address] Mar, [facility] [place] [facility] [address] [facility] [id number] [place] [address] 15 Feb, 2014 [facility] [place] [facility] [address] [facility] [id number] [place] [address] 15 Feb, 2014 [facility] [place] [facility] [address] [facility] [id number] [place] [address] Feb, [facility] [place] [facility] [address] [id number] [address] Dec, [facility] [place] [facility] [address] [id number] [place] [address] Dec, [facility] [place] [facility] [address] [facility] [id number] [place] [address] 17 Nov, 2013 [facility] [place] [facility] [address] [id number] [place] [address] Nov, [facility] [place] [facility] [address] [id number] [place] [address] Nov, [facility] [place] [facility] [address] [id number] [place] [address] Nov, [facility] [place] [facility] [address] [id number] [place] [address] Sep, [facility] [place] [facility] [address] [id number] [place] [address] Sep, [facility] [place] [facility] [address] [id number] [place] [address] Sep, [facility] [place] [facility] [address] [id number] [place] [address] Sep, [facility] [place] [facility] [address] [id number] [place] [address] Aug, [facility] [place] [facility] [address] [id number] [place] [address] Aug, [facility] [place] [facility] [address] [id number] [place] [address] Aug, [facility] [place] [facility] [address] [id number] [place] [address] Aug, [facility] [place] [facility] [address] [id number] [place] [address] July, [facility] [place] [facility] [address] [id number] [place] [address] July, [facility] [place] [facility] [address] [id number] [place] [address] Jun, [facility] [place] [facility] [address] [id number] [place] [address] Jun, [facility] [place] [facility] [address] [id number] [place] [address] Jun, [facility] [place] [facility] [address] [id number] [place] [address] Jun, [facility] [place] [facility] [address] [id number] [place] [address] Jun, [facility] [place] [facility] [address] [id number] [place] [address] Jun, [facility] [place] [facility] [address] [id number] [place] [address] Jun, [facility] [place] [facility] [address] [id number] [place] [address] Jun, [facility] [place] [facility] [address] [id number] [place] [address] May, [facility] [place] [facility] [address] [id number] [place] [address] May, [facility] [place] [facility] [address] [id number] [place] [address] May, [facility] [place] [facility] [address] [id number] [place] [address] May, [facility] [place] [facility] [address] [id number] [place] [address] May, [facility] [place] [facility] [address] [id number] [place] [address] May, [facility] [place] [facility] [address] [id number] [place] [address] Apr, [facility] [place] [facility] [address] [id number] [place] [address] Apr, [facility] [place] [facility] [address] [id number] [place] [address] Apr, [facility] [place] [facility] [address] [id number] [place] [address] Apr, [facility] [place] [facility] [address] [id number] [place] [address] Mar, [facility] [place] [facility] [address] [id number] [place] [address] Mar, [facility] [place] [facility] [address] [id number] [place] [address] Mar, [facility] [place] [facility] [address] [id number] [place] [address] Mar, [facility] [place] [facility] [address] [id number] [place] [address] Mar, [facility] [place] [facility] [address] [id number] [place] [address] Mar, [facility] [place] [facility] [address] [id number] [place] [address] Feb, [facility] [place] [facility] [address] [id number] [place] [address] Feb, [facility] [place] [facility] [address] [id number] [place] [address] Feb, [facility] [place] [facility] [address] [id number] [place] [address] Feb, [facility] [place] [facility] [address] [id number] [place] [address] Feb, [facility] [place] [facility] [address] [id number] [place] [address] Feb, [facility] [place] [facility] [address] [id number] [place] [address] Feb, [facility] [place] [facility] [address] [id number] [place] [address] Feb, [facility] [place] [facility] [address] [id number] [place] [address] Feb, [facility] [place] [facility] [address] [id number] [place] [address] Feb, [facility] [place] [facility] [address] [id number] [place] [address] Feb, [facility] [place] [facility] [address] [id number] [place] [address] Feb, [facility] [place] [facility] [address] [id number] [place] [address] Jan, [facility] [place] [facility] [address] [id number] [place] [address] Jan, [facility] [place] [facility] [address] [id number] [place] [address] Jan, [facility] [place] [facility] [address] [id number] [place] [address] Jan, [facility] [place] [facility] [address] [id number] [place] [address] Jan, [facility] [place] [facility] [address] [id number] [place] [address] Jan, [facility] [place] [facility] [address] [id number], [place] [address] Jan, [facility] [place] [facility] [address] [id number], [place] [address] Jan, [facility] [place] [facility] [address] [id number], [place] [address] Jan, [facility] [place] [facility] [address] [id number], [place] [address] Jan, [facility] [place] [facility] [address] [id number], [place] [address] Dec, [facility] [place] [facility] [address] [id number], [place] [address] Dec, [facility] [place] [facility] [address] [id number], [place] [address] Nov, [facility] [facility] [address] [id number] [address] Nov, [facility] [place] [facility] [address] [id number] [place] [address] Nov, 2012 [facility] [place] [facility] [address] [id number] [place] [address] 05 Nov, 2012 [facility] [place] [facility] [address] [id number] [place] [address] Nov, [facility] [place] [facility] [address] [id number] [place] [address] Oct, [facility] [place] [facility] [address] [id number] [place] [address] Oct, [facility] [place] [facility] [address] [id number] [place] [address] Oct, [facility] [place] [facility] [address] [id number] [place] [address] Oct, [facility] [place] [facility] [address] [id number] [place] [address] Oct, [facility] [place] [facility] [address] [id number] [place] [address] Sep, [facility] [place] [facility] [address] [id number] [place] [address] Sep, [facility] [place] [facility] [address] [id number] [place] [address] Sep, [facility] [place] [facility] [address] [id number] [place] [address] Sep, [facility] [place] [facility] [address] [id number] [place] [address] Sep, [facility] [place] [facility] [address] [id number] [place] [address] Sep, [facility] [place] [facility] [address] [id number] [place] [address] Aug, [facility] [place] [facility] [address] [id number] [place] [address] Aug, [facility] [place] [facility] [address] [id number] [place] [address] July, [facility] [address] [id number] [place] [address] July, [facility] [address] [id number] [place] [address] July, [facility] [address] [id number] [place] [address] Jun, [facility] [address] [id number] [place] [address] Jun, [facility] [address] [id number] [place] [address] Jun, [facility] [address] [id number] [place] [address] Jun, [facility] [address] [id number] [place] [address] May, [facility] [address] [id number] [place] [address] May, [facility] [address] [id number] [place] [address] Apr, [facility] [address] [id number] [place] [address] Apr, [facility] [address] [id number] [place] [address] Apr, [facility] [address] [id number] [place] [address] Apr, [facility] [address] [id number] [place] [address] 13 Apr, 2012 [facility] [address] [id number] [place] [address] Apr, [facility] [address] [id number] [id number] Apr, [facility] [address] [id number] [place] [address] Apr, [facility] [address] [facility] [id number] [place] [address] Mar, [facility] [address] [facility] [id number] [place] [address] Mar, [facility] [address] [id number] [place] [address] Mar, [facility] [address] [facility] [id number] [place] [address] Mar, [facility] [address] [facility] [id number] [place] [address] Jan, [facility] [address] [id number] [place] [address] Jan, [facility] [address] [facility] [id number] [place] [address] Jan, [facility] [id number] [place] [address] Jan, [facility] [address] [id number] [place] [address] Jan, [facility] [address] [id number] [place] [address] Dec, [facility] [address] [facility] [id number], [place] [address] Dec, [facility] [address] [facility] [id number] [place] [address] Dec, [facility] [address] [facility] [id number] [place] [address] Dec, [facility] [address] [facility] [id number], [place] [address] Nov, [facility] [address] [id number] [place] [address] Oct, [facility] [address] [id number] [place] [address] Oct, [facility] [address] [id number] [place] [address] Oct, [facility] [address] [id number] [place] [address] Oct, [facility] [address] [id number] [place] [address] Oct, [facility] [address] [id number] [place] [address] Sep, [facility] [address] [id number] [place] [address] Sep, [facility] [address] [id number] [place] [address] Aug, [facility] [address] [id number] [place] [address] Aug, [facility] [address] [id number] [place] [address] Aug, [facility] [address] [id number] [place] [address] Aug, [facility] [address] [id number] [place] [address] July, [facility] [address] [id number] [place] [address] Jun, [facility] [address] [id number] [place] [address] May, [facility] [address] [id number] [place] [address] May, [facility] [facility] [address] [id number] [place] [address] May, [facility] [address] [id number] [place] [address] 30 Mar, 2011 [facility] [address] [id number] [place] [address] Feb, [facility] [address] [id number] [place] [address] Feb, [facility] [address] [id number] [place] [address] Jan, [facility] [address] [id number] [place] [address] Jan, [facility] [facility] [address] [id number] [place] [address] Jan, [facility] [address] [id number] [place] [address] Jan, [facility] [address] [id number] [place] [address] Jan, [facility] [address] [id number] [place] [address] Dec, [facility] [address] [id number] [place] [address] Dec, [facility] [address] [id number], [place] [address] Dec, [facility] [address] [id number], [place] [address] 18 May, 2009 [facility] [address] [id number] [place] [address] 15 May, 2009 [facility] [address] [id number] [place] [address] 17 Apr, 2009 [facility] [address] [id number] [place] [address] Jan, [facility] [address] [facility] [id number] [place] [address] 11 Apr, 2008 IMMUNIZATIONS No Known Immunizations SOCIAL HISTORY Never Assessed REASON FOR VISIT EMR-[facility] PLAN OF CARE VITAL SIGNS MEDICATIONS Unknown [...] for cancer Hospitalization History surgeries Hospitalization History [facility] ER, heart- kidney- Stayed at [facility] ICU 12/2017 Hospitalization History [facility] ER 03/2018
--- OUTSIDE RECORDS SUMMARY | 2018-10-30 20:30 | XMS REPORT ---
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 Active 194556379 Problem Lumbago with sciatica, right side M54.41 Active 109816339 Problem Other chronic pain G89.29 Active 41142963 Problem Other chronic pain G89.29 Active 33155769 Problem Acute right-sided low back pain with right-sided sciatica M54.41 Active 692380574 Problem Anxiety F41.9 Active 41469701 Problem Asymptomatic menopausal state Z78.0 Active 91313778 Problem Episode of recurrent major depressive disorder, unspecified depression episode severity F33.9 Active 412767929 Problem Sialoadenitis, unspecified K11.20 Active 14779965 Problem Other organ or system involvement in systemic lupus erythematosus M32.19 Active 00934400 Problem Sciatica M54.30 Active 66616729 Problem 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 45026564 Problem 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 E78.2 Active 170822082 Problem HILARIO (obstructive sleep apnea) G47.33 Active 34115591 Problem Right renal artery stenosis I70.1 Active [id number] Problem Systemic lupus erythematosus, unspecified SLE type, unspecified organ involvement status M32.9 Active 00683653 Problem Chronic anticoagulation Z79.01 Active 108879448 Problem [facility] 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 Z79.01 Active 054600649 ALLERGIES No Information ENCOUNTERS Encounter Location Date Diagnosis [facility] [address] [id number] [place] [address] Jun, Other chronic pain G89.29 [facility] [id number] [place] [address] May, Unexplained weight loss R63.4 [facility] [id number] [place] [address] May, Nausea with vomiting, unspecified R11.2 [facility] [id number] [place] [address] May, Non-recurrent acute suppurative otitis media of right ear without spontaneous rupture of tympanic membrane H66.001 and Chronic anticoagulation Z79.01 [facility] [id number] [place] [address] May, Other chronic pain G89.29 [facility] [id number] [place] [address] Apr, Skin tear of right forearm without complication, initial encounter S51.811A ; Skin tear of left forearm without complication, initial encounter S51.812A and Encounter for immunization Z23 [facility] [id number] [place] [address] Apr, [facility] [id number] [place] [address] Apr, Diarrhea, unspecified R19.7 ; Nausea with vomiting, unspecified R11.2 and 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 [facility] [id number] [place] [address] Apr, Other chronic pain G89.29 [facility] [id number] [place] [address] Mar, Other chronic pain G89.29 [facility] [id number] [place] [address] Mar, Other chronic pain G89.29 [facility] [id number] [place] [address] Mar, [facility] [id number] [place] [address] Mar, Other organ or system involvement in systemic lupus erythematosus M32.19 [facility] [id number] [place] [address] Mar, Non-recurrent acute suppurative otitis media of right ear without spontaneous rupture of tympanic membrane H66.001 and Chronic anticoagulation Z79.01 [facility] [id number] [place] [address] Feb, Sialoadenitis, unspecified K11.20 [facility] [id number] [place] [address] Feb, Other chronic pain G89.29 [facility] [id number] [place] [address] Jan, 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 [facility] [id number] [place] [address] Jan, Other chronic pain G89.29 ; Lumbago with sciatica, right side M54.41 ; Other chronic pain G89.29 ; Tobacco abuse Z72.0 ; Tobacco abuse counseling Z71.6 ; 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 E78.2 and [facility] 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 Z79.01 [facility] [address] [address] Jan, [facility] [id number] [place] [address] Dec, [facility] [id number] [place] [address] Dec, [facility] [id number] [place] [address] Dec, [facility] [id number] [place] [address] Dec, 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 E78.2 ; Other chronic [...] involvement in systemic lupus erythematosus M32.19 [facility] [address] [place] [id number] Dec, Right renal artery stenosis I70.1 ; Other organ or system involvement in systemic lupus erythematosus M32.19 ; Hepatitis C B19.20 ; Tobacco abuse Z72.0 and Weakness R53.1 [facility] [address] [place] [id number] Dec, [facility] [id number] [place] [address] Dec, [facility] [id number] [place] [address] Dec, Other organ or system involvement in systemic lupus erythematosus M32.19 [facility] [address] [place] [id number] Dec, Right renal artery stenosis I70.1 ; Injury of right kidney, sequela S37.001S ; Tobacco abuse Z72.0 ; Systemic lupus erythematosus, unspecified SLE type, unspecified organ involvement status M32.9 ; Hepatitis C B19.20 and Candidiasis of female genitalia B37.3 [facility] [id number] [place] [address] Dec, Other organ or system involvement in systemic lupus erythematosus M32.19 [facility] [id number] [place] [address] Dec, Other organ or system involvement in systemic lupus erythematosus M32.19 [facility] [id number] [place] [address] Dec, [facility] [id number] [address] Nov, Other organ or system involvement in systemic lupus erythematosus M32.19 [facility] [address], [place] [address] Oct, Other organ or system involvement in systemic lupus erythematosus M32.19 [facility] [address] [address] Sep, Other organ or system involvement in systemic lupus erythematosus M32.19 [facility] [address] [address] Aug, Anxiety F41.9 [facility] [id number] [place] [address] Aug, Other organ or system involvement in systemic lupus erythematosus M32.19 [facility] [address] [address] July, Medicare annual wellness visit, initial Z00.00 ; Anxiety F41.9 ; HILARIO (obstructive sleep apnea) G47.33 ; Hepatitis C B19.20 ; Other chronic pain G89.29 ; Asymptomatic menopausal state Z78.0 and Episode of recurrent major depressive disorder, unspecified depression episode severity F33.9 [facility] [id number] [address] July, Anxiety F41.9 [facility] [address], [place] [address] July, Other organ or system involvement in systemic lupus erythematosus M32.19 [facility] [address] [address] July, [facility] [address] [address] Jun, Other organ or system involvement in systemic lupus erythematosus M32.19 ; BMI 40.0-44.9, adult Z68.41 ; Other chronic pain G89.29 and Controlled substance agreement signed Z79.899 [facility] [address] [address] May, Sciatica M54.30 [facility] [address] [address] Apr, Sciatica M54.30 [facility] [address] [address] Mar, Sciatica M54.30 [facility] [address] [address] Feb, Sciatica M54.30 [facility] [address] [address] 15 Jan, 2017 Sciatica M54.30 [facility] [address] [address] 14 Jan, 2017 Sciatica M54.30 [facility] [address] [address] 19 Dec, 2016 Sciatica M54.30 [facility] [address] [address] 18 Dec, 2016 Sciatica M54.30 [facility] [id number] [place] [address] 29 Nov, 2016 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 E78.2 ; Chronic seasonal allergic rhinitis due to other allergen J30.2 and Family history of early CAD Z82.49 [facility] [id number] [place] [address] 21 Nov, 2016 Sciatica M54.30 [facility] [address] [address] 18 Nov, 2016 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 E78.2 ; Chronic seasonal allergic rhinitis due to other allergen J30.2 ; Family history of early CAD Z82.49 ; Other chronic pain G89.29 and Pain in left shoulder M25.512 [facility] [address] [place] [address] Nov, Acute pain of left shoulder M25.512 [facility] [id number] [place] [address] Oct, Sciatica M54.30 [facility] [id number] [place] [address] Oct, [facility] [address] [address] Sep, Sciatica M54.30 [facility] [id number] [place] [address] Sep, Acute pain of left shoulder M25.512 [facility] [id number] [place] [address] Sep, Acute pain of left shoulder M25.512 [facility] [id number] [place] [address] Aug, Sciatica M54.30 [facility] [id number] [place] [address] Aug, Sciatica M54.30 ; Tobacco abuse Z72.0 and Tobacco abuse counseling Z71.6 [facility] [id number] [place] [address] Aug, Acute pain of left shoulder M25.512 [facility] [id number] [place] [address] Aug, Contusion of right shoulder, initial encounter S40.011A ; Acute pain of left shoulder M25.512 and Shortness of breath R06.02 [facility] [id number] [place] [address] Aug, Lumbago with sciatica, right side M54.41 [facility] [id number] [place] [address] July, [facility] [id number] [place] [address] July, Lumbago with sciatica, right side M54.41 [facility] [address] [address] Jun, Lumbago with sciatica, right side M54.41 [facility] [id number] [place] [address] May, Lumbago with sciatica, right side M54.41 [facility] [address] [address] May, Herpes zoster without complication B02.9 [facility] [address] [address] May, Back pain M54.9 and Acute right-sided low back pain with right-sided sciatica M54.41 [facility] [id number] [place] [address] Apr, [facility] [address] [address] Apr, Lumbago with sciatica, right side M54.41 and Other chronic pain G89.29 [facility] [id number] [place] [address] Apr, [facility] [id number] [place] [address] Mar, [facility] [id number] [place] [address] Mar, [place] [address] Feb, [facility] [id number] [place] [address] Jan, Urinary frequency R35.0 [place] [address] Jan, [facility] [address], [place] [address] Dec, [facility] [id number] [place] [address] Oct, [facility] [id number] [place] [address] Sep, [facility] [id number] [place] [address] Sep, Foreign body in left foot, initial encounter S90.852A [facility] [id number] [place] [address] Aug, [facility] [id number] [place] [address] July, Sciatica M54.30 [facility] [id number] [place] [address] Jun, [facility] [id number] [place] [address] May, Osteoarthritis M19.90 [facility] [id number] [place] [address] May, [facility] [id number] [place] [address] May, Pain in right hip M25.551 [facility] [id number] [place] [address] May, Tinea corporis B35.4 [facility] [id number] [place] [address] 10 Apr, 2015 Pain in right hip M25.551 [facility] [id number] [place] [address] Mar, Pain in right hip M25.551 [facility] [id number], [place] [address] Mar, [facility] [id number] [place] [address] Feb, Pain in right hip M25.551 [facility] [id number] [place] [address] Jan, Acute bronchitis, unspecified organism J20.9 and Cough R05 [facility] [id number] [place] [address] Jan, Pain in right hip M25.551 [facility] [id number] [place] [address] Dec, Pain in right hip M25.551 [facility] [id number] [place] [address] Nov, Acute bronchitis 466.0 [facility] [id number] [place] [address] Nov, [facility] [id number] [place] [address] Oct, [facility] [id number] [place] [address] Sep, [facility] [id number] [place] [address] Aug, [facility] [id number] [place] [address] July, [facility] [id number] [place] [address] Jun, [facility] [id number] [place] [address] Jun, [facility] [address], [place] [address] May, [facility] [id number] [place] [address] May, [facility] [place] [facility] [address] [id number] [place] [address] Apr, 2014 [facility] [place] [facility] [address] [id number] [place] [address] Apr, 2014 [facility] [place] [facility] [address] [id number] [place] [address] Apr, 2014 [facility] [place] [facility] [address] [id number] [place] [address] Apr, 2014 [facility] [place] [facility] [address] [id number] [place] [address] Apr, 2014 [facility] [place] [facility] [address] [id number] [place] [address] Apr, 2014 [facility] [place] [facility] [address] [id number] [place] [address] Mar, [facility] [place] [facility] [address] [id number] [place] [address] Mar, [facility] [place] [facility] [address] [id number] [place] [address] 15 Feb, 2014 [facility] [place] [facility] [address] [id number] [place] [address] 15 Feb, 2014 [facility] [place] [facility] [address] [id number] [place] [address] Feb, [facility] [place] [facility] [address] [id number], [place] [address] Dec, [facility] [place] [facility] [address] [id number] [place] [address] Dec, [facility] [place] [facility] [address] [id number] [place] [address] 17 Nov, 2013 [facility] [place] [facility] [address] [id number] [place] [address] Nov, [facility] [place] [facility] [address] [id number] [place] [address] Nov, [facility] [place] [facility] [address] [id number] [place] [address] Nov, [facility] [place] [facility] [address] [id number] [place] [address] Sep, [facility] [place] [facility] [address] [id number] [place] [address] Sep, [facility] [place] [facility] [address] [id number] [place] [address] Sep, [facility] [place] [facility] [address] [id number] [place] [address] Sep, [facility] [place] [facility] [address] [id number] [place] [address] Aug, [facility] [place] [facility] [address] [id number] [place] [address] Aug, [facility] [place] [facility] [address] [id number] [place] [address] Aug, [facility] [place] [facility] [address] [id number] [place] [address] Aug, [facility] [place] [facility] [address] [id number] [place] [address] July, [facility] [place] [facility] [address] [id number] [place] [address] July, [facility] [place] [facility] [address] [id number] [place] [address] Jun, [facility] [place] [facility] [address] [id number] [place] [address] Jun, [facility] [place] [facility] [address] [id number] [place] [address] Jun, [facility] [place] [facility] [address] [id number] [place] [address] Jun, [facility] [place] [facility] [address] [id number] [place] [address] Jun, [facility] [place] [facility] [address] [id number] [place] [address] Jun, [facility] [place] [facility] [address] [id number] [place] [address] Jun, [facility] [place] [facility] [address] [id number] [place] [address] Jun, [facility] [place] [facility] [address] [id number] [place] [address] May, [facility] [place] [facility] [address] [id number] [place] [address] May, [facility] [place] [facility] [address] [id number] [place] [address] May, [facility] [place] [facility] [address] [id number] [place] [address] May, [facility] [place] [facility] [address] [id number] [place] [address] May, [facility] [place] [facility] [address] [id number] [place] [address] May, [facility] [place] [facility] [address] [id number] [place] [address] Apr, [facility] [place] [facility] [address] [id number] [place] [address] Apr, [facility] [place] [facility] [address] [id number] [place] [address] Apr, [facility] [place] [facility] [address] [id number] [place] [address] Apr, [facility] [place] [facility] [address] [id number] [place] [address] Mar, [facility] [place] [facility] [address] [id number] [place] [address] Mar, [facility] [place] [facility] [address] [id number] [place] [address] Mar, [facility] [place] [facility] [address] [id number] [place] [address] Mar, [facility] [place] [facility] [address] [id number] [place] [address] Mar, [facility] [place] [facility] [address] [id number] [place] [address] Mar, [facility] [place] [facility] [address] [id number] [place] [address] Feb, [facility] [place] [facility] [address] [id number] [place] [address] Feb, [facility] [place] [facility] [address] [id number] [place] [address] Feb, [facility] [place] [facility] [address] [id number] [place] [address] Feb, [facility] [place] [facility] [address] [id number] [place] [address] Feb, [facility] [place] [facility] [address] [id number] [place] [address] Feb, [facility] [place] [facility] [address] [id number] [place] [address] Feb, [facility] [place] [facility] [address] [id number] [place] [address] Feb, [facility] [place] [facility] [address] [id number] [place] [address] Feb, [facility] [place] [facility] [address] [id number] [place] [address] Feb, [facility] [place] [facility] [address] [id number] [place] [address] Feb, [facility] [place] [facility] [address] [id number] [place] [address] Feb, [facility] [place] [facility] [address] [id number] [place] [address] Jan, [facility] [place] [facility] [address] [id number] [place] [address] Jan, [facility] [place] [facility] [address] [id number] [place] [address] Jan, [facility] [place] [facility] [address] [id number] [place] [address] Jan, [facility] [place] [facility] [address] [id number] [place] [address] Jan, [facility] [place] [facility] [address] [id number] [place] [address] Jan, [facility] [place] [facility] [address] [id number], [place] [address] Jan, [facility] [place] [facility] [address] [id number], [place] [address] Jan, [facility] [place] [facility] [address] [id number], [place] [address] Jan, [facility] [place] [facility] [address] [id number], [place] [address] Jan, [facility] [place] [facility] [address] [id number], [place] [address] Dec, [facility] [place] [facility] [address] [id number], [place] [address] Dec, [facility] [place] [facility] [address] [id number], [place] [address] Nov, [facility] [place] [facility] [address] [address] [id number], [place] [address] Nov, [facility] [place] [facility] [address] [id number] [place] [address] Nov, 2012 [facility] [place] [facility] [address] [id number] [place] [address] 05 Nov, 2012 [facility] [place] [facility] [address] [id number] [place] [address] Nov, [facility] [place] [facility] [address] [id number] [place] [address] Oct, [facility] [place] [facility] [address] [id number] [place] [address] Oct, [facility] [place] [facility] [address] [id number] [place] [address] Oct, [facility] [place] [facility] [address] [id number] [place] [address] Oct, [facility] [place] [facility] [address] [id number] [place] [address] Oct, [facility] [place] [facility] [address] [id number] [place] [address] Sep, [facility] [place] [facility] [address] [id number] [place] [address] Sep, [facility] [place] [facility] [address] [id number] [place] [address] Sep, [facility] [place] [facility] [address] [id number] [place] [address] Sep, [facility] [place] [facility] [address] [id number] [place] [address] Sep, [facility] [place] [facility] [address] [id number] [place] [address] Sep, [facility] [place] [facility] [address] [id number] [place] [address] Aug, [facility] [place] [facility] [address] [id number] [place] [address] Aug, [facility] [place] [facility] [address] [id number] [place] [address] July, [facility] [address] [id number] [place] [address] July, [facility] [address] [id number] [place] [address] July, [facility] [address] [id number] [place] [address] Jun, [facility] [address] [id number] [place] [address] Jun, [facility] [address] [id number] [place] [address] Jun, [facility] [address] [id number] [place] [address] Jun, [facility] [address] [id number] [place] [address] May, [facility] [address] [id number] [place] [address] May, [facility] [address] [id number] [place] [address] Apr, [facility] [address] [id number] [place] [address] Apr, [facility] [address] [id number] [place] [address] Apr, [facility] [address] [id number] [place] [address] Apr, [facility] [place] [facility] [address] [id number] [place] [address] 13 Apr, 2012 [facility] [address] [id number] [place] [address] Apr, [facility] [address] [id number] [id number] Apr, [facility] [address] [id number] [place] [address] Apr, [facility] [address] [id number] [place] [address] Mar, [facility] [address] [id number] [place] [address] Mar, [facility] [place] [facility] [address] [id number] [place] [address] Mar, [facility] [address] [id number] [place] [address] Mar, [facility] [address] [id number] [place] [address] Jan, [facility] [address] [id number] [address] Jan, [facility] [address] [id number] [place] [address] Jan, [facility] [id number] [place] [address] Jan, [facility] [address] [id number] [place] [address] Jan, [facility] [address] [id number] [place] [address] Dec, [facility] [place] [facility] [address] [id number], [place] [address] Dec, [facility] [place] [facility] [address] [id number] [place] [address] Dec, [facility] [place] [facility] [address] [id number] [place] [address] Dec, [facility] [place] [facility] [address] [id number], [place] [address] Nov, [facility] [place] [facility] [address] [id number] [place] [address] Oct, [facility] [place] [facility] [address] [id number] [place] [address] Oct, [facility] [place] [facility] [address] [id number] [place] [address] Oct, [facility] [place] [facility] [address] [id number] [place] [address] Oct, [facility] [place] [facility] [address] [id number] [place] [address] Oct, [facility] [place] [facility] [address] [id number] [place] [address] Sep, [facility] [place] [facility] [address] [id number] [place] [address] Sep, [facility] [place] [facility] [address] [id number] [place] [address] Aug, [facility] [place] [facility] [address] [id number] [place] [address] Aug, [facility] [place] [facility] [address] [id number] [place] [address] Aug, [facility] [place] [facility] [address] [id number] [place] [address] Aug, [facility] [place] [facility] [address] [id number] [place] [address] July, [facility] [place] [facility] [address] [id number] [place] [address] Jun, [facility] [place] [facility] [address] [id number] [place] [address] May, [facility] [place] [facility] [address] [id number] [place] [address] May, [facility] [place] [facility] [address] [id number] [place] [address] May, [facility] [place] [facility] [address] [id number] [place] [address] 30 Mar, 2011 [facility] [place] [facility] [address] [id number] [place] [address] Feb, [facility] [place] [facility] [address] [id number] [place] [address] Feb, [facility] [place] [facility] [address] [id number] [place] [address] Jan, [facility] [place] [facility] [address] [id number] [place] [address] Jan, [facility] [place] [facility] [address] [id number] [place] [address] Jan, [facility] [place] [facility] [address] [id number] [place] [address] Jan, [facility] [place] [facility] [address] [id number] [place] [address] Jan, [facility] [place] [facility] [address] [id number] [place] [address] Dec, [facility] [place] [facility] [address] [id number] [place] [address] Dec, [facility] [place] [facility] [address] [id number], [place] [address] Dec, [facility] [place] [facility] [address] [id number], [place] [address] 18 May, 2009 [facility] [place] [facility] [address] [id number] [place] [address] 15 May, 2009 [facility] [place] [facility] [address] [id number] [place] [address] 17 Apr, 2009 [facility] [place] [facility] [address] [id number] [place] [address] Jan, [facility] [place] [facility] [address] [id number] [place] [address] 11 Apr, 2008 IMMUNIZATIONS No Known Immunizations SOCIAL HISTORY Never Assessed REASON FOR VISIT EMR-[facility] PLAN OF CARE VITAL SIGNS MEDICATIONS Unknown [...] for cancer Hospitalization History surgeries Hospitalization History [facility], heart- kidney- Stayed at [facility] ICU 12/[address] [facility] 03/2018
--- OUTSIDE RECORDS SUMMARY | 2018-10-30 20:31 | XMS REPORT ---
Author Author Migration, Doctor Organization 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 Active 543569396 Problem Lumbago with sciatica, right side M54.41 Active 671971843 Problem Other chronic pain G89.29 Active 63517109 Problem Other chronic pain G89.29 Active 61143739 Problem Acute right-sided low back pain with right-sided sciatica M54.41 Active 885223063 Problem Anxiety F41.9 Active 24527139 Problem Asymptomatic menopausal state Z78.0 Active 24454623 Problem Episode of recurrent major depressive disorder, unspecified depression episode severity F33.9 Active 333097622 Problem Sialoadenitis, unspecified K11.20 Active 73243940 Problem Other organ or system involvement in systemic lupus erythematosus M32.19 Active 18004854 Problem Sciatica M54.30 Active 36838411 Problem 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 50972206 Problem 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 E78.2 Active 907544238 Problem HILARIO (obstructive sleep apnea) G47.33 Active 97376362 Problem Right renal artery stenosis I70.1 Active [id number] Problem Systemic lupus erythematosus, unspecified SLE type, unspecified organ involvement status M32.9 Active 32170643 Problem Chronic anticoagulation Z79.01 Active 062294114 Problem nursing home 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 Z79.01 Active 965567780 ALLERGIES No Information ENCOUNTERS Encounter Location Date Diagnosis [facility] [address] [facility] [id number] [place] [address] Jun, Other chronic pain G89.29 [facility] [id number] [place] [address] May, Unexplained weight loss R63.4 [facility] [id number] [place] [address] May, Nausea with vomiting, unspecified R11.2 [facility] [id number] [place] [address] May, Non-recurrent acute suppurative otitis media of right ear without spontaneous rupture of tympanic membrane H66.001 and Chronic anticoagulation Z79.01 [facility] [id number] [place] [address] May, Other chronic pain G89.29 [facility] [id number] [place] [address] Apr, Skin tear of right forearm without complication, initial encounter S51.811A ; Skin tear of left forearm without complication, initial encounter S51.812A and Encounter for immunization Z23 [facility] [id number] [place] [address] Apr, [facility] [address] [place] [address] Apr, Diarrhea, unspecified R19.7 ; Nausea with vomiting, unspecified R11.2 and 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 [facility] [address] [place] [address] Apr, Other chronic pain G89.29 [facility] [id number] [place] [address] Mar, Other chronic pain G89.29 [facility] [address] [place] [address] Mar, Other chronic pain G89.29 [facility] [id number] [place] [address] Mar, [facility] [id number] [place] [address] Mar, Other organ or system involvement in systemic lupus erythematosus M32.19 [facility] [address] [place] [address] Mar, Non-recurrent acute suppurative otitis media of right ear without spontaneous rupture of tympanic membrane H66.001 and Chronic anticoagulation Z79.01 [facility] [address] [place] [address] Feb, Sialoadenitis, unspecified K11.20 [facility] [id number] [place] [address] Feb, Other chronic pain G89.29 [facility] [address] [place] [address] Jan, 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.01 [facility] [id number] [place] [address] Jan, Other chronic pain G89.29 ; Lumbago with sciatica, right side M54.41 ; Other chronic pain G89.29 ; Tobacco abuse Z72.0 ; Tobacco abuse counseling Z71.6 ; 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 E78.2 and nursing home 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 Z79.01 [facility] [address] [address] Jan, [facility] [id number] [place] [address] Dec, [facility] [id number] [place] [address] Dec, [facility] [id number] [place] [address] Dec, [facility] [facility] [id number] [place] [address] Dec, 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 E78.2 ; Other chronic [...] involvement in systemic lupus erythematosus M32.19 [facility] [address] [place] [id number] Dec, Right renal artery stenosis I70.1 ; Other organ or system involvement in systemic lupus erythematosus M32.19 ; Hepatitis C B19.20 ; Tobacco abuse Z72.0 and Weakness R53.1 [facility] [address] [place] [id number] Dec, [facility] [address] [place] [address] Dec, [facility] [address] [place] [address] Dec, Other organ or system involvement in systemic lupus erythematosus M32.19 [facility] [address] [place] [id number] Dec, Right renal artery stenosis I70.1 ; Injury of right kidney, sequela S37.001S ; Tobacco abuse Z72.0 ; Systemic lupus erythematosus, unspecified SLE type, unspecified organ involvement status M32.9 ; Hepatitis C B19.20 and Candidiasis of female genitalia B37.3 [facility] [address] [place] [address] Dec, Other organ or system involvement in systemic lupus erythematosus M32.19 [facility] [id number] [place] [address] Dec, Other organ or system involvement in systemic lupus erythematosus M32.19 [facility] [address] [place] [address] Dec, [facility] [facility] [id number] [address] Nov, Other organ or system involvement in systemic lupus erythematosus M32.19 [facility] [address] [address] Oct, Other organ or system involvement in systemic lupus erythematosus M32.19 [facility] [address] [address] Sep, Other organ or system involvement in systemic lupus erythematosus M32.19 [facility] [address] [address] Aug, Anxiety F41.9 [facility] [address] [place] [address] Aug, Other organ or system involvement in systemic lupus erythematosus M32.19 [facility] [address] [address] July, Medicare annual wellness visit, initial Z00.00 ; Anxiety F41.9 ; HILARIO (obstructive sleep apnea) G47.33 ; Hepatitis C B19.20 ; Other chronic pain G89.29 ; Asymptomatic menopausal state Z78.0 and Episode of recurrent major depressive disorder, unspecified depression episode severity F33.9 [facility] [id number] [address] July, Anxiety F41.9 [facility] [address] [address] July, Other organ or system involvement in systemic lupus erythematosus M32.19 [facility] [address] [address] July, [place] [address] [address] Jun, Other organ or system involvement in systemic lupus erythematosus M32.19 ; BMI 40.0-44.9, adult Z68.41 ; Other chronic pain G89.29 and Controlled substance agreement signed Z79.899 [facility] [address] [address] May, Sciatica M54.30 [facility] [address] [address] Apr, Sciatica M54.30 [facility] [address] [address] Mar, Sciatica M54.30 [facility] [address] [address] Feb, Sciatica M54.30 [facility] [address] [address] 15 Jan, 2017 Sciatica M54.30 [facility] [facility] [address] [address] 14 Jan, 2017 Sciatica M54.30 [facility] [facility] [address] [address] 19 Dec, 2016 Sciatica M54.30 [facility] [address] [address] 18 Dec, 2016 Sciatica M54.30 [facility] [address] [place] [address] 29 Nov, 2016 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 E78.2 ; Chronic seasonal allergic rhinitis due to other allergen J30.2 and Family history of early CAD Z82.49 [facility] [address] [place] [address] 21 Nov, 2016 Sciatica M54.30 [facility] [facility] [address] [address] 18 Nov, 2016 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 E78.2 ; Chronic seasonal allergic rhinitis due to other allergen J30.2 ; Family history of early CAD Z82.49 ; Other chronic pain G89.29 and Pain in left shoulder M25.512 [facility] [address] [place] [address] Nov, Acute pain of left shoulder M25.512 [facility] [address] [place] [address] Oct, Sciatica M54.30 [facility] [address] [place] [address] Oct, [facility] [address] [address] Sep, Sciatica M54.30 [facility] [address] [place] [address] Sep, Acute pain of left shoulder M25.512 [facility] [address] [place] [address] Sep, Acute pain of left shoulder M25.512 [facility] [address] [place] [address] Aug, Sciatica M54.30 [facility] [address] [place] [address] Aug, Sciatica M54.30 ; Tobacco abuse Z72.0 and Tobacco abuse counseling Z71.6 [facility] [address] [place] [address] Aug, Acute pain of left shoulder M25.512 [facility] [address] [place] [address] Aug, Contusion of right shoulder, initial encounter S40.011A ; Acute pain of left shoulder M25.512 and Shortness of breath R06.02 [facility] [address] [place] [address] Aug, Lumbago with sciatica, right side M54.41 [facility] [address] [place] [address] July, [facility] [id number] [place] [address] July, Lumbago with sciatica, right side M54.41 [facility] [address] [address] Jun, Lumbago with sciatica, right side M54.41 [facility] [address] [place] [address] May, Lumbago with sciatica, right side M54.41 [facility] [address] [address] May, Herpes zoster without complication B02.9 [facility] [address] [address] May, Back pain M54.9 and Acute right-sided low back pain with right-sided sciatica M54.41 [facility] [address] [place] [address] Apr, [place] [facility] [address] [address] Apr, Lumbago with sciatica, right side M54.41 and Other chronic pain G89.29 [facility] [address] [place] [address] Apr, [facility] [address] [place] [address] Mar, [facility] [address] [place] [address] Mar, [place] [address] [address] Feb, [facility] [address] [place] [address] Jan, Urinary frequency R35.0 [place] [facility] [address] [address] Jan, [facility] [address] [address] Dec, [facility] [address] [place] [address] Oct, [facility] [address] [place] [address] Sep, [facility] [address] [place] [address] Sep, Foreign body in left foot, initial encounter S90.852A [facility] [address] [place] [address] Aug, [facility] [address] [place] [address] July, Sciatica M54.30 [facility] [address] [place] [address] Jun, [facility] [address] [place] [address] May, Osteoarthritis M19.90 [facility] [address] [place] [address] May, [facility] [address] [place] [address] May, Pain in right hip M25.551 [facility] [address] [place] [address] May, Tinea corporis B35.4 [facility] [address] [place] [address] 10 Apr, 2015 Pain in right hip M25.551 [facility] [address] [place] [address] Mar, Pain in right hip M25.551 [facility] [address] [address] Mar, [facility] [address] [place] [address] Feb, Pain in right hip M25.551 [facility] [address] [place] [address] Jan, Acute bronchitis, unspecified organism J20.9 and Cough R05 [facility] [address] [place] [address] Jan, Pain in right hip M25.551 [facility] [address] [place] [address] Dec, Pain in right hip M25.551 [facility] [address] [place] [address] Nov, Acute bronchitis 466.0 [facility] [address] [place] [address] Nov, [facility] [address] [place] [address] Oct, [facility] [address] [place] [address] Sep, [facility] [address] [place] [address] Aug, [facility] [address] [place] [address] July, [facility] [address] [place] [address] Jun, [facility] [address] [place] [address] Jun, [facility] [address], [place] [address] May, [facility] [address] [place] [address] May, [facility] [place] [facility] [address] [id number] [place] [address] Apr, 2014 [facility] [place] [facility] [address] [id number] [place] [address] Apr, 2014 [facility] [place] [facility] [address] [id number] [place] [address] Apr, 2014 [facility] [place] [facility] [address] [id number] [place] [address] Apr, 2014 [facility] [place] [facility] [address] [id number] [place] [address] Apr, 2014 [facility] [place] [facility] [address] [facility] [id number] [place] [address] Apr, 2014 [facility] [place] [facility] [address] [facility] [id number] [place] [address] Mar, [facility] [place] [facility] [address] [facility] [id number] [place] [address] Mar, [facility] [place] [facility] [address] [facility] [id number] [place] [address] 15 Feb, 2014 [facility] [place] [facility] [address] [facility] [id number] [place] [address] 15 Feb, 2014 [facility] [place] [facility] [address] [facility] [id number] [place] [address] Feb, [facility] [place] [facility] [address] [id number] [address] Dec, [facility] [place] [facility] [address] [id number] [place] [address] Dec, [facility] [place] [facility] [address] [facility] [id number] [place] [address] 17 Nov, 2013 [facility] [place] [facility] [address] [id number] [place] [address] Nov, [facility] [place] [facility] [address] [id number] [place] [address] Nov, [facility] [place] [facility] [address] [id number] [place] [address] Nov, [facility] [place] [facility] [address] [id number] [place] [address] Sep, [facility] [place] [facility] [address] [id number] [place] [address] Sep, [facility] [place] [facility] [address] [id number] [place] [address] Sep, [facility] [place] [facility] [address] [id number] [place] [address] Sep, [facility] [place] [facility] [address] [id number] [place] [address] Aug, [facility] [place] [facility] [address] [id number] [place] [address] Aug, [facility] [place] [facility] [address] [id number] [place] [address] Aug, [facility] [place] [facility] [address] [id number] [place] [address] Aug, [facility] [place] [facility] [address] [id number] [place] [address] July, [facility] [place] [facility] [address] [id number] [place] [address] July, [facility] [place] [facility] [address] [id number] [place] [address] Jun, [facility] [place] [facility] [address] [id number] [place] [address] Jun, [facility] [place] [facility] [address] [id number] [place] [address] Jun, [facility] [place] [facility] [address] [id number] [place] [address] Jun, [facility] [place] [facility] [address] [id number] [place] [address] Jun, [facility] [place] [facility] [address] [id number] [place] [address] Jun, [facility] [place] [facility] [address] [id number] [place] [address] Jun, [facility] [place] [facility] [address] [id number] [place] [address] Jun, [facility] [place] [facility] [address] [id number] [place] [address] May, [facility] [place] [facility] [address] [id number] [place] [address] May, [facility] [place] [facility] [address] [id number] [place] [address] May, [facility] [place] [facility] [address] [id number] [place] [address] May, [facility] [place] [facility] [address] [id number] [place] [address] May, [facility] [place] [facility] [address] [id number] [place] [address] May, [facility] [place] [facility] [address] [id number] [place] [address] Apr, [facility] [place] [facility] [address] [id number] [place] [address] Apr, [facility] [place] [facility] [address] [id number] [place] [address] Apr, [facility] [place] [facility] [address] [id number] [place] [address] Apr, [facility] [place] [facility] [address] [id number] [place] [address] Mar, [facility] [place] [facility] [address] [id number] [place] [address] Mar, [facility] [place] [facility] [address] [id number] [place] [address] Mar, [facility] [place] [facility] [address] [id number] [place] [address] Mar, [facility] [place] [facility] [address] [id number] [place] [address] Mar, [facility] [place] [facility] [address] [id number] [place] [address] Mar, [facility] [place] [facility] [address] [id number] [place] [address] Feb, [facility] [place] [facility] [address] [id number] [place] [address] Feb, [facility] [place] [facility] [address] [id number] [place] [address] Feb, [facility] [place] [facility] [address] [id number] [place] [address] Feb, [facility] [place] [facility] [address] [id number] [place] [address] Feb, [facility] [place] [facility] [address] [id number] [place] [address] Feb, [facility] [place] [facility] [address] [id number] [place] [address] Feb, [facility] [place] [facility] [address] [id number] [place] [address] Feb, [facility] [place] [facility] [address] [id number] [place] [address] Feb, [facility] [place] [facility] [address] [id number] [place] [address] Feb, [facility] [place] [facility] [address] [id number] [place] [address] Feb, [facility] [place] [facility] [address] [id number] [place] [address] Feb, [facility] [place] [facility] [address] [id number] [place] [address] Jan, [facility] [place] [facility] [address] [id number] [place] [address] Jan, [facility] [place] [facility] [address] [id number] [place] [address] Jan, [facility] [place] [facility] [address] [id number] [place] [address] Jan, [facility] [place] [facility] [address] [id number] [place] [address] Jan, [facility] [place] [facility] [address] [id number] [place] [address] Jan, [facility] [place] [facility] [address] [id number], [place] [address] Jan, [facility] [place] [facility] [address] [id number], [place] [address] Jan, [facility] [place] [facility] [address] [id number], [place] [address] Jan, [facility] [place] [facility] [address] [id number], [place] [address] Jan, [facility] [place] [facility] [address] [id number], [place] [address] Dec, [facility] [place] [facility] [address] [id number], [place] [address] Dec, [facility] [place] [facility] [address] [id number], [place] [address] Nov, [facility] [place] [facility] [address] [id number], [place] [address] Nov, [facility] [place] [facility] [address] [id number] [place] [address] Nov, 2012 [facility] [place] [facility] [address] [id number] [place] [address] 05 Nov, 2012 [facility] [place] [facility] [address] [id number] [place] [address] Nov, [facility] [place] [facility] [address] [id number] [place] [address] Oct, [facility] [place] [facility] [address] [id number] [place] [address] Oct, [facility] [place] [facility] [address] [id number] [place] [address] Oct, [facility] [place] [facility] [address] [id number] [place] [address] Oct, [facility] [place] [facility] [address] [id number] [place] [address] Oct, [facility] [place] [facility] [address] [id number] [place] [address] Sep, [facility] [place] [facility] [address] [id number] [place] [address] Sep, [facility] [place] [facility] [address] [id number] [place] [address] Sep, [facility] [place] [facility] [address] [id number] [place] [address] Sep, [facility] [place] [facility] [address] [id number] [place] [address] Sep, [facility] [place] [facility] [address] [id number] [place] [address] Sep, [facility] [place] [facility] [address] [id number] [place] [address] Aug, [facility] [place] [facility] [address] [id number] [place] [address] Aug, [facility] [place] [facility] [address] [id number] [place] [address] July, [facility] [address] [id number] [place] [address] July, [facility] [address] [id number] [place] [address] July, [facility] [address] [id number] [place] [address] Jun, [facility] [address] [id number] [place] [address] Jun, [facility] [address] [id number] [place] [address] Jun, [facility] [address] [id number] [place] [address] Jun, [facility] [address] [id number] [place] [address] May, [facility] [address] [id number] [place] [address] May, [facility] [address] [id number] [place] [address] Apr, [facility] [address] [id number] [place] [address] Apr, [facility] [address] [id number] [place] [address] Apr, [facility] [address] [id number] [place] [address] Apr, [facility] [place] [facility] [address] [id number] [place] [address] 13 Apr, 2012 [facility] [address] [id number] [place] [address] Apr, [facility] [address] [id number] [id number] Apr, [facility] [address] [id number] [place] [address] Apr, [facility] [address] [facility] [address] [facility] [id number] [place] [address] Mar, [facility] [address] [facility] [id number] [place] [address] Mar, [facility] [place] [facility] [address] [id number] [place] [address] Mar, [facility] [address] [facility] [id number] [place] [address] Mar, [facility] [address] [facility] [id number] [place] [address] Jan, [facility] [address] [id number] [place] [address] Jan, [facility] [address] [facility] [id number] [place] [address] Jan, [facility] [id number] [place] [address] Jan, [facility] [address] [id number] [place] [address] Jan, [facility] [address] [id number] [place] [address] Dec, [facility] [place] [facility] [address] [facility] [id number], [place] [address] Dec, [facility] [place] [facility] [address] [facility] [id number] [place] [address] Dec, [facility] [place] [facility] [address] [facility] [id number] [place] [address] Dec, [facility] [place] [facility] [address] [facility] [id number], [place] [address] Nov, [facility] [place] [facility] [address] [id number] [place] [address] Oct, [facility] [place] [facility] [address] [id number] [place] [address] Oct, [facility] [place] [facility] [address] [id number] [place] [address] Oct, [facility] [place] [facility] [address] [id number] [place] [address] Oct, [facility] [place] [facility] [address] [id number] [place] [address] Oct, [facility] [place] [facility] [address] [id number] [place] [address] Sep, [facility] [place] [facility] [address] [id number] [place] [address] Sep, [facility] [place] [facility] [address] [id number] [place] [address] Aug, [facility] [place] [facility] [address] [id number] [place] [address] Aug, [facility] [place] [facility] [address] [id number] [place] [address] Aug, [facility] [place] [facility] [address] [id number] [place] [address] Aug, [facility] [place] [facility] [address] [id number] [place] [address] July, [facility] [place] [facility] [address] [id number] [place] [address] Jun, [facility] [place] [facility] [address] [id number] [place] [address] May, [facility] [place] [facility] [address] [id number] [place] [address] May, [facility] [place] [facility] [address] [id number] [place] [address] May, [facility] [place] [facility] [address] [id number] [place] [address] 30 Mar, 2011 [facility] [place] [facility] [address] [id number] [place] [address] Feb, [facility] [place] [facility] [address] [id number] [place] [address] Feb, [facility] [place] [facility] [address] [id number] [place] [address] Jan, [facility] [place] [facility] [address] [id number] [place] [address] Jan, [facility] [place] [facility] [address] [id number] [place] [address] Jan, [facility] [place] [facility] [address] [id number] [place] [address] Jan, [facility] [place] [facility] [address] [id number] [place] [address] Jan, [facility] [place] [facility] [address] [id number] [place] [address] Dec, [facility] [place] [facility] [address] [id number] [place] [address] Dec, [facility] [place] [facility] [address] [id number], [place] [address] Dec, [facility] [place] [facility] [address] [id number], [place] [address] 18 May, 2009 [facility] [place] [facility] [address] [id number] [place] [address] 15 May, 2009 [facility] [place] [facility] [address] [id number] [place] [address] 17 Apr, 2009 [facility] [place] [facility] [address] [id number] [place] [address] Jan, [facility] [place] [facility] [address] [address] [facility] [id number] [place] [address] 11 Apr, 2008 IMMUNIZATIONS No Known Immunizations SOCIAL HISTORY Never Assessed REASON FOR VISIT EMR-[facility] [place] PLAN OF CARE VITAL SIGNS MEDICATIONS Unknown [...] for cancer Hospitalization History surgeries Hospitalization History [facility], heart- kidney- Stayed at [facility] ICU 12/2017 Hospitalization History [facility] 03/2018
--- OUTSIDE RECORDS SUMMARY | 2018-10-30 20:32 | XMS REPORT ---
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 Active 110974630 Problem Lumbago with sciatica, right side M54.41 Active 005887286 Problem Other chronic pain G89.29 Active 96616121 Problem Other chronic pain G89.29 Active 72355969 Problem Acute right-sided low back pain with right-sided sciatica M54.41 Active 631777359 Problem Anxiety F41.9 Active 90295842 Problem Asymptomatic menopausal state Z78.0 Active 01522822 Problem Episode of recurrent major depressive disorder, unspecified depression episode severity F33.9 Active 442591854 Problem Sialoadenitis, unspecified K11.20 Active 01782863 Problem Other organ or system involvement in systemic lupus erythematosus M32.19 Active 72257944 Problem Sciatica M54.30 Active 17999016 Problem 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 92655469 Problem 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 E78.2 Active 270416159 Problem HILARIO (obstructive sleep apnea) G47.33 Active 14169368 Problem Right renal artery stenosis I70.1 Active [id number] Problem Systemic lupus erythematosus, unspecified SLE type, unspecified organ involvement status M32.9 Active 32964487 Problem Chronic anticoagulation Z79.01 Active 130159150 Problem FDC 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 Z79.01 Active 605570215 ALLERGIES No Information ENCOUNTERS Encounter Location Date Diagnosis [facility] [address] [facility] [id number] [place] [address] May, [facility] [id number] [place] [address] May, Nausea with vomiting, unspecified R11.2 [facility] [id number] [place] [address] May, Non-recurrent acute suppurative otitis media of right ear without spontaneous rupture of tympanic membrane H66.001 and Chronic anticoagulation Z79.01 [place] [address] [address] May, Other chronic pain G89.29 [facility] [id number] [place] [address] Apr, Skin tear of right forearm without complication, initial encounter S51.811A ; Skin tear of left forearm without complication, initial encounter S51.812A and Encounter for immunization Z23 [place] [address] [address] Apr, [facility] [id number] [place] [address] Apr, Diarrhea, unspecified R19.7 ; Nausea with vomiting, unspecified R11.2 and 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 [facility] [facility] [id number] [place] [address] Apr, Other chronic pain G89.29 [facility] [id number] [place] [address] Mar, Other chronic pain G89.29 [facility] [id number] [place] [address] Mar, Other chronic pain G89.29 [facility] [id number] [place] [address] Mar, [facility] [place] [id number] [place] [address] Mar, Other organ or system involvement in systemic lupus erythematosus M32.19 [place] [id number] [place] [address] Mar, Non-recurrent acute suppurative otitis media of right ear without spontaneous rupture of tympanic membrane H66.001 and Chronic anticoagulation Z79.01 [facility] [id number] [place] [address] Feb, Sialoadenitis, unspecified K11.20 [facility] [id number] [place] [address] Feb, Other chronic pain G89.29 [place] [address] [address] Jan, emt intermediate 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 Z79.01 [facility] [id number] [place] [address] Jan, Other chronic pain G89.29 ; Lumbago with sciatica, right side M54.41 ; Other chronic pain G89.29 ; Tobacco abuse Z72.0 ; Tobacco abuse counseling Z71.6 ; 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 E78.2 and emt intermediate 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 Z79.01 [facility] [id number] [place] [address] Jan, [facility] [id number] [place] [address] Dec, [facility] [id number] [place] [address] Dec, [facility] [place] [id number] [place] [address] Dec, [facility] [place] [id number] [place] [address] Dec, 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 E78.2 ; Other chronic [...] involvement in systemic lupus erythematosus M32.19 [facility] [address] [place] [id number] Dec, Right renal artery stenosis I70.1 ; Other organ or system involvement in systemic lupus erythematosus M32.19 ; Hepatitis C B19.20 ; Tobacco abuse Z72.0 and Weakness R53.1 [facility] [address] [place] [id number] Dec, [facility] [id number] [place] [address] Dec, [facility] [id number] [place] [address] Dec, Other organ or system involvement in systemic lupus erythematosus M32.19 [facility] [address] [place] [id number] Dec, Right renal artery stenosis I70.1 ; Injury of right kidney, sequela S37.001S ; Tobacco abuse Z72.0 ; Systemic lupus erythematosus, unspecified SLE type, unspecified organ involvement status M32.9 ; Hepatitis C B19.20 and Candidiasis of female genitalia B37.3 [facility] [id number] [place] [address] Dec, Other organ or system involvement in systemic lupus erythematosus M32.19 [facility] [id number] [place] [address] Dec, Other organ or system involvement in systemic lupus erythematosus M32.19 [facility] [id number] [place] [address] Dec, [facility] [id number], [place] [address] Nov, Other organ or system involvement in systemic lupus erythematosus M32.19 [facility] [address], [place] [address] Oct, 2018 Other organ or system involvement in systemic lupus erythematosus M32.19 [facility] [address] [address] Sep, Other organ or system involvement in systemic lupus erythematosus M32.19 [facility] [address] [address] Aug, Anxiety F41.9 [facility] [id number], [place] [address] Aug, Other organ or system involvement in systemic lupus erythematosus M32.19 [facility] [id number] [place] [address] July, Medicare annual wellness visit, initial Z00.00 ; Anxiety F41.9 ; HILARIO (obstructive sleep apnea) G47.33 ; Hepatitis C B19.20 ; Other chronic pain G89.29 ; Asymptomatic menopausal state Z78.0 and Episode of recurrent major depressive disorder, unspecified depression episode severity F33.9 [place] [address] [address] July, Anxiety F41.9 [place] [address] [address] July, Other organ or system involvement in systemic lupus erythematosus M32.19 [place] [address] [address] July, [facility] [address] [address] Jun, Other organ or system involvement in systemic lupus erythematosus M32.19 ; BMI 40.0-44.9, adult Z68.41 ; Other chronic pain G89.29 and Controlled substance agreement signed Z79.899 [facility] [address], [place] [address] May, Sciatica M54.30 [facility] [id number] [place] [address] Apr, Sciatica M54.30 [facility] [address] [address] Mar, Sciatica M54.30 [facility] [id number] [place] [address] Feb, Sciatica M54.30 [facility] [address] [address] 15 Jan, 2017 Sciatica M54.30 [place] [address] [address] 14 Jan, 2017 Sciatica M54.30 [place] [id number] [place] [address] 19 Dec, 2016 Sciatica M54.30 [facility] [place] [id number] [place] [address] 18 Dec, 2016 Sciatica M54.30 [facility] [id number] [place] [address] 29 Nov, 2016 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 E78.2 ; Chronic seasonal allergic rhinitis due to other allergen J30.2 and Family history of early CAD Z82.49 [place] [id number] [place] [address] Nov, Sciatica M54.30 [facility] [id number] [place] [address] 18 Nov, 2016 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 E78.2 ; Chronic seasonal allergic rhinitis due to other allergen J30.2 ; Family history of early CAD Z82.49 ; Other chronic pain G89.29 and Pain in left shoulder M25.512 [place] [id number] [place] [address] 11 Nov, 2016 Acute pain of left shoulder M25.512 [place] [id number] [place] [address] Oct, Sciatica M54.30 [facility] [id number] [place] [address] Oct, [facility] [id number] [place] [address] Sep, Sciatica M54.30 [facility] [id number] [place] [address] Sep, Acute pain of left shoulder M25.512 [facility] [id number] [place] [address] Sep, Acute pain of left shoulder M25.512 [facility] [id number] [place] [address] Aug, Sciatica M54.30 [facility] [id number] [place] [address] Aug, Sciatica M54.30 ; Tobacco abuse Z72.0 and Tobacco abuse counseling Z71.6 [facility] [id number] [place] [address] Aug, Acute pain of left shoulder M25.512 [facility] [address] [place] [address] Aug, Contusion of right shoulder, initial encounter S40.011A ; Acute pain of left shoulder M25.512 and Shortness of breath R06.02 [facility] [address] [address] Aug, Lumbago with sciatica, right side M54.41 [facility] [id number] [place] [address] July, [facility] [id number] [place] [address] July, Lumbago with sciatica, right side M54.41 [facility] [id number] [place] [address] Jun, Lumbago with sciatica, right side M54.41 [facility] [address] [address] May, Lumbago with sciatica, right side M54.41 [facility] [address] [address] May, Herpes zoster without complication B02.9 [facility] [address] [address] May, Back pain M54.9 and Acute right-sided low back pain with right-sided sciatica M54.41 [facility] [address] [address] Apr, [facility] [address] [address] Apr, Lumbago with sciatica, right side M54.41 and Other chronic pain G89.29 [facility] [address] [address] Apr, [facility] [address] [address] Mar, [facility] [id number] [place] [address] Mar, [facility] [id number] [place] [address] Feb, [facility] [id number] [place] [address] Jan, Urinary frequency R35.0 [facility] [address] [address] Jan, [facility] [id number] [place] [address] Dec, [facility] [address], [place] [address] Oct, [facility] [id number] [place] [address] Sep, [facility] [address], [place] [address] Sep, Foreign body in left foot, initial encounter S90.852A [facility] [id number] [place] [address] Aug, [facility] [id number] [place] [address] July, Sciatica M54.30 [facility] [id number] [place] [address] Jun, [facility] [id number] [place] [address] May, Osteoarthritis M19.90 [facility] [id number] [place] [address] May, [facility] [id number] [place] [address] May, Pain in right hip M25.551 [facility] [address], [place] [address] May, Tinea corporis B35.4 [facility] [address], [place] [address] Apr, Pain in right hip M25.551 [facility] [id number] [place] [address] Mar, Pain in right hip M25.551 [facility] [address], [place] [address] Mar, [facility] [id number] [place] [address] Feb, Pain in right hip M25.551 [facility] [address] [place] [address] Jan, Acute bronchitis, unspecified organism J20.9 and Cough R05 [facility] [address], [place] [address] Jan, Pain in right hip M25.551 [facility] [id number] [place] [address] Dec, Pain in right hip M25.551 [facility] [id number] [place] [address] Nov, Acute bronchitis 466.0 [facility] [id number] [place] [address] Nov, [facility] [id number] [place] [address] Oct, [facility] [id number] [place] [address] Sep, [facility] [id number] [place] [address] Aug, [facility] [address], [place] [address] July, [facility] [address] [place] [address] 14 Jun, 2014 [facility] [id number] [place] [address] Jun, [facility] [id number] [place] [address] May, [facility] [id number] [address] May, [facility] [id number] [place] [address] Apr, [facility] [place] [facility] [address] [id number] [place] [address] Apr, 2014 [facility] [place] [facility] [address] [id number] [place] [address] Apr, 2014 [facility] [place] [facility] [address] [id number] [place] [address] Apr, 2014 [facility] [place] [facility] [address] [id number] [place] [address] Apr, 2014 [facility] [place] [facility] [address] [id number] [place] [address] Apr, [facility] [place] [facility] [address] [id number] [place] [address] Mar, [facility] [place] [facility] [address] [id number] [place] [address] Mar, [facility] [place] [facility] [address] [id number] [place] [address] Feb, [facility] [place] [facility] [address] [id number] [place] [address] Feb, [facility] [place] [facility] [address] [id number] [place] [address] Feb, [facility] [place] [facility] [address] [id number] [place] [address] Dec, [facility] [place] [facility] [address] [id number], [place] [address] Dec, [facility] [place] [facility] [address] [id number] [place] [address] Nov, [facility] [place] [facility] [address] [id number] [place] [address] Nov, [facility] [place] [facility] [address] [id number] [place] [address] Nov, [facility] [place] [facility] [address] [id number] [place] [address] Nov, [facility] [place] [facility] [address] [id number] [place] [address] Sep, [facility] [place] [facility] [address] [id number] [place] [address] Sep, [facility] [place] [facility] [address] [id number] [place] [address] Sep, [facility] [place] [facility] [address] [id number] [place] [address] Sep, [facility] [place] [facility] [address] [id number] [place] [address] Aug, [facility] [place] [facility] [address] [id number] [place] [address] Aug, [facility] [place] [facility] [address] [id number] [place] [address] Aug, [facility] [place] [facility] [address] [id number] [place] [address] Aug, [facility] [place] [facility] [address] [id number] [place] [address] July, [facility] [place] [facility] [address] [id number] [place] [address] July, [facility] [place] [facility] [address] [id number] [place] [address] Jun, [facility] [place] [facility] [address] [id number] [place] [address] Jun, [facility] [place] [facility] [address] [id number] [place] [address] Jun, [facility] [place] [facility] [address] [id number] [place] [address] Jun, [facility] [place] [facility] [address] [id number] [place] [address] Jun, [facility] [place] [facility] [address] [id number] [place] [address] Jun, [facility] [place] [facility] [address] [id number] [place] [address] Jun, [facility] [place] [facility] [address] [id number] [place] [address] Jun, [facility] [place] [facility] [address] [id number] [place] [address] May, [facility] [place] [facility] [address] [id number] [place] [address] May, [facility] [place] [facility] [address] [id number] [place] [address] May, [facility] [place] [facility] [address] [id number] [place] [address] May, [facility] [place] [facility] [address] [id number] [place] [address] May, [facility] [place] [facility] [address] [id number] [place] [address] May, [facility] [place] [facility] [address] [id number] [place] [address] Apr, [facility] [place] [facility] [address] [id number] [place] [address] Apr, [facility] [place] [facility] [address] [id number] [place] [address] Apr, [facility] [place] [facility] [address] [id number] [place] [address] Apr, [facility] [place] [facility] [address] [id number] [place] [address] Mar, [facility] [place] [facility] [address] [id number] [place] [address] Mar, [facility] [place] [facility] [address] [id number], [place] [address] Mar, [facility] [address] [id number] [place] [address] Mar, [facility] [address] [id number] [place] [address] Mar, [facility] [address] [id number] [place] [address] Mar, [facility] [address] [id number] [place] [address] Feb, [facility] [address] [id number] [place] [address] Feb, [facility] [address] [id number] [place] [address] Feb, [facility] [address] [id number] [place] [address] Feb, [facility] [address] [id number] [place] [address] Feb, [facility] [address] [id number] [place] [address] Feb, [facility] [address] [id number] [place] [address] Feb, [facility] [address] [id number], [place] [address] Feb, [facility] [place] [facility] [address] [id number], [place] [address] Feb, [facility] [place] [facility] [address] [id number], [place] [address] Feb, [facility] [place] [facility] [address] [id number], [place] [address] Feb, [facility] [place] [facility] [address] [id number] [place] [address] Feb, [facility] [place] [facility] [address] [id number] [place] [address] Jan, [facility] [place] [facility] [address] [id number] [place] [address] Jan, [facility] [place] [facility] [address] [id number] [place] [address] Jan, [facility] [place] [facility] [address] [id number] [place] [address] Jan, [facility] [place] [facility] [address] [id number] [place] [address] Jan, [facility] [place] [facility] [address] [id number] [place] [address] Jan, [facility] [place] [facility] [address] [id number] [place] [address] Jan, [facility] [place] [facility] [address] [id number] [place] [address] Jan, [facility] [place] [facility] [address] [id number] [place] [address] Jan, [facility] [place] [facility] [address] [id number] [place] [address] Jan, [facility] [place] [facility] [address] [id number] [place] [address] Dec, [facility] [place] [facility] [address] [id number] [place] [address] Dec, [facility] [place] [facility] [address] [id number] [place] [address] Nov, [facility] [place] [facility] [address] [id number] [place] [address] Nov, [facility] [place] [facility] [address] [id number] [place] [address] Nov, [facility] [place] [facility] [address] [id number] [place] [address] Nov, [facility] [place] [facility] [address] [id number] [place] [address] Nov, [facility] [place] [facility] [address] [id number] [place] [address] Oct, [facility] [place] [facility] [address] [id number] [place] [address] Oct, [facility] [place] [facility] [address] [id number] [place] [address] Oct, [facility] [place] [facility] [address] [id number] [place] [address] Oct, [facility] [place] [facility] [address] [id number] [place] [address] Oct, [facility] [place] [facility] [address] [id number] [place] [address] Sep, [facility] [place] [facility] [address] [id number] [place] [address] Sep, [facility] [place] [facility] [address] [id number] [place] [address] Sep, [facility] [place] [facility] [address] [id number] [place] [address] Sep, [facility] [place] [facility] [address] [address] [id number] [place] [address] Sep, [facility] [place] [facility] [address] [id number] [place] [address] Sep, [facility] [place] [facility] [address] [id number] [place] [address] Aug, [facility] [place] [facility] [address] [id number] [place] [address] Aug, [facility] [place] [facility] [address] [id number] [place] [address] July, [facility] [place] [facility] [address] [id number] [place] [address] July, [facility] [address] [id number] [place] [address] July, [facility] [place] [facility] [address] [id number] [place] [address] Jun, [facility] [place] [facility] [address] [id number] [place] [address] Jun, [facility] [place] [facility] [address] [id number] [place] [address] Jun, [facility] [place] [facility] [address] [id number] [place] [address] Jun, [facility] [place] [facility] [address] [id number] [place] [address] May, [facility] [place] [facility] [address] [id number] [place] [address] May, [facility] [place] [facility] [address] [id number] [place] [address] Apr, [facility] [place] [facility] [address] [id number] [place] [address] Apr, [facility] [place] [facility] [address] [facility] [id number] [place] [address] Apr, [facility] [place] [facility] [address] [id number] [place] [address] Apr, [facility] [place] [facility] [address] [facility] [id number] [place] [address] Apr, [facility] [place] [facility] [address] [facility] [id number] [place] [address] Apr, [facility] [place] [facility] [address] [id number] [place] [id number] Apr, [facility] [place] [facility] [address] [id number] [place] [address] Apr, [facility] [place] [facility] [address] [id number] [place] [address] Mar, [facility] [place] [facility] [address] [id number] [place] [address] Mar, [facility] [place] [facility] [address] [id number] [place] [address] Mar, [facility] [place] [facility] [address] [id number] [place] [address] Mar, [facility] [place] [facility] [address] [id number] [place] [address] Jan, [facility] [place] [facility] [address] [id number] [place] [address] Jan, [facility] [place] [facility] [address] [id number] [place] [address] Jan, [facility] [place] [facility] [address] [id number], [place] [address] Jan, [facility] [place] [facility] [address] [id number] [place] [address] Jan, [facility] [place] [facility] [address] [facility] [id number], [place] [address] Dec, [facility] [place] [facility] [address] [id number], [place] [address] Dec, [facility] [place] [facility] [address] [id number], [place] [address] Dec, [facility] [place] [facility] [address] [id number], [place] [address] Dec, [facility] [place] [facility] [address] [id number], [place] [address] Nov, [facility] [place] [facility] [address] [facility] [id number], [place] [address] Oct, [facility] [place] [facility] [address] [id number], [place] [address] Oct, [facility] [place] [facility] [address] [id number] [place] [address] Oct, [facility] [place] [facility] [address] [id number] [place] [address] Oct, [facility] [place] [facility] [address] [id number] [place] [address] Oct, [facility] [place] [facility] [address] [id number] [place] [address] Sep, [facility] [place] [facility] [address] [id number] [place] [address] Sep, [facility] [place] [facility] [address] [id number] [place] [address] Aug, [facility] [place] [facility] [address] [id number] [place] [address] Aug, [facility] [place] [facility] [address] [id number] [place] [address] Aug, [facility] [place] [facility] [address] [id number] [place] [address] Aug, [facility] [place] [facility] [address] [id number] [place] [address] July, [facility] [place] [facility] [address] [id number] [place] [address] Jun, [facility] [place] [facility] [address] [id number] [place] [address] May, [facility] [place] [facility] [address] [id number] [place] [address] May, [facility] [place] [facility] [address] [id number] [place] [address] May, [facility] [place] [facility] [address] [id number] [place] [address] Mar, [facility] [place] [facility] [address] [facility] [id number], [place] [address] Feb, [facility] [address] [facility] [id number], [place] [address] Feb, [facility] [address] [facility] [id number], [place] [address] Jan, [facility] [address] [facility] [id number], [place] [address] Jan, [facility] [address] [facility] [id number], [place] [address] Jan, [facility] [address] [facility] [id number], [place] [address] Jan, [facility] [address] [facility] [id number], [place] [address] Jan, [facility] [id number], [place] [address] Dec, [facility] [address] [facility] [id number], [place] [address] Dec, [facility] [id number], [place] [address] Dec, [facility] [address] [id number], [place] [address] May, [facility] [address] [id number], [place] [address] 15 May, 2009 [facility] [address] [facility] [id number], [place] [address] 17 Apr, 2009 [facility] [address] [facility] [id number], [place] [address] Jan, [facility] [address] [facility] [id number], [place] [address] 11 Apr, 2008 IMMUNIZATIONS No Known Immunizations SOCIAL HISTORY Never Assessed REASON FOR VISIT [place]-[facility] [place] [...] for cancer Hospitalization History surgeries Hospitalization History [facility] ER, heart- kidney- Stayed at [facility] ICU 12/2017 Hospitalization History [facility] ER 03/2018
--- OUTSIDE RECORDS SUMMARY | 2018-10-30 20:32 | XMS REPORT ---
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 Active 668957807 Problem Lumbago with sciatica, right side M54.41 Active 257790699 Problem Other chronic pain G89.29 Active 39829283 Problem Other chronic pain G89.29 Active 18717334 Problem Acute right-sided low back pain with right-sided sciatica M54.41 Active 762398755 Problem Anxiety F41.9 Active 28389344 Problem Asymptomatic menopausal state Z78.0 Active 34176596 Problem Episode of recurrent major depressive disorder, unspecified depression episode severity F33.9 Active 077813241 Problem Sialoadenitis, unspecified K11.20 Active 72044254 Problem Other organ or system involvement in systemic lupus erythematosus M32.19 Active 08309872 Problem Sciatica M54.30 Active 45470634 Problem 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 92791532 Problem 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 E78.2 Active 449175906 Problem HILARIO (obstructive sleep apnea) G47.33 Active 46881148 Problem Right renal artery stenosis I70.1 Active [id number] Problem Systemic lupus erythematosus, unspecified SLE type, unspecified organ involvement status M32.9 Active 35859186 Problem Chronic anticoagulation Z79.01 Active 817951117 Problem correction 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 Z79.01 Active 292554281 ALLERGIES No Information ENCOUNTERS Encounter Location Date Diagnosis [facility] [place] [address] [facility] [id number] [address] Jun, Other chronic pain G89.29 [facility] [place] [id number] [place] [address] May, Unexplained weight loss R63.4 [facility] [place] [id number] [place] [address] May, Nausea with vomiting, unspecified R11.2 [facility] [id number] [place] [address] May, Non-recurrent acute suppurative otitis media of right ear without spontaneous rupture of tympanic membrane H66.001 and Chronic anticoagulation Z79.01 [facility] [id number] [place] [address] May, Other chronic pain G89.29 [facility] [id number] [place] [address] Apr, Skin tear of right forearm without complication, initial encounter S51.811A ; Skin tear of left forearm without complication, initial encounter S51.812A and Encounter for immunization Z23 [facility] [place] [id number] [place] [address] Apr, [place] [id number] [place] [address] Apr, Diarrhea, unspecified R19.7 ; Nausea with vomiting, unspecified R11.2 and 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 [facility] [place] [id number] [place] [address] Apr, Other chronic pain G89.29 [facility] [place] [id number] [place] [address] Mar, Other chronic pain G89.29 [facility] [place] [id number] [place] [address] Mar, Other chronic pain G89.29 [facility] [place] [id number] [place] [address] Mar, [facility] [place] [id number] [place] [address] Mar, Other organ or system involvement in systemic lupus erythematosus M32.19 [facility] [place] [id number] [place] [address] Mar, Non-recurrent acute suppurative otitis media of right ear without spontaneous rupture of tympanic membrane H66.001 and Chronic anticoagulation Z79.01 [facility] [id number] [place] [address] Feb, Sialoadenitis, unspecified K11.20 [facility] [place] [id number] [place] [address] Feb, Other chronic pain G89.29 [place] [id number] [place] [address] Jan, 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 [place] [id number] [place] [address] Jan, Other chronic pain G89.29 ; Lumbago with sciatica, right side M54.41 ; Other chronic pain G89.29 ; Tobacco abuse Z72.0 ; Tobacco abuse counseling Z71.6 ; 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 E78.2 and correction 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 Z79.01 [facility] [place] [address] [address] Jan, [facility] [place] [id number] [place] [address] Dec, [place] [id number] [place] [address] Dec, [place] [id number] [place] [address] Dec, [place] [id number] [place] [address] Dec, 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 E78.2 ; Other chronic [...] involvement in systemic lupus erythematosus M32.19 [address] [facility] [address] [place] [id number] Dec, Right renal artery stenosis I70.1 ; Other organ or system involvement in systemic lupus erythematosus M32.19 ; Hepatitis C B19.20 ; Tobacco abuse Z72.0 and Weakness R53.1 [facility] [address] [place] [id number] Dec, [place] [id number] [place] [address] Dec, [place] [id number] [place] [address] Dec, Other organ or system involvement in systemic lupus erythematosus M32.19 [facility] [address] [place] [id number] Dec, Right renal artery stenosis I70.1 ; Injury of right kidney, sequela S37.001S ; Tobacco abuse Z72.0 ; Systemic lupus erythematosus, unspecified SLE type, unspecified organ involvement status M32.9 ; Hepatitis C B19.20 and Candidiasis of female genitalia B37.3 [facility] [place] [id number] [place] [address] Dec, Other organ or system involvement in systemic lupus erythematosus M32.19 [facility] [place] [id number] [place] [address] Dec, Other organ or system involvement in systemic lupus erythematosus M32.19 [facility] [place] [id number] [place] [address] Dec, [place] [id number] [address] Nov, Other organ or system involvement in systemic lupus erythematosus M32.19 [facility] [place] [address] [address] Oct, Other organ or system involvement in systemic lupus erythematosus M32.19 [facility] [place] [address] [address] Sep, Other organ or system involvement in systemic lupus erythematosus M32.19 [facility] [place] [address] [address] Aug, Anxiety F41.9 [place] [id number] [place] [address] Aug, Other organ or system involvement in systemic lupus erythematosus M32.19 [place] [address] [address] July, Medicare annual wellness visit, initial Z00.00 ; Anxiety F41.9 ; HILARIO (obstructive sleep apnea) G47.33 ; Hepatitis C B19.20 ; Other chronic pain G89.29 ; Asymptomatic menopausal state Z78.0 and Episode of recurrent major depressive disorder, unspecified depression episode severity F33.9 [place] [id number] [address] July, Anxiety F41.9 [facility] [place] [address] [address] July, Other organ or system involvement in systemic lupus erythematosus M32.19 [facility] [place] [address] [address] July, [place] [address] [address] Jun, Other organ or system involvement in systemic lupus erythematosus M32.19 ; BMI 40.0-44.9, adult Z68.41 ; Other chronic pain G89.29 and Controlled substance agreement signed Z79.899 [facility] [place] [address] [address] May, Sciatica M54.30 [facility] [place] [address] [address] Apr, Sciatica M54.30 [facility] [place] [address] [address] Mar, Sciatica M54.30 [facility] [place] [address] [address] Feb, Sciatica M54.30 [place] [address] [address] 15 Jan, 2017 Sciatica M54.30 [place] [address] [address] 14 Jan, 2017 Sciatica M54.30 [place] [address] [address] 19 Dec, 2016 Sciatica M54.30 [place] [address] [address] 18 Dec, 2016 Sciatica M54.30 [place] [id number] [place] [address] 29 Nov, 2016 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 E78.2 ; Chronic seasonal allergic rhinitis due to other allergen J30.2 and Family history of early CAD Z82.49 [facility] [place] [id number] [place] [address] 21 Nov, 2016 Sciatica M54.30 [place] [address] [address] 18 Nov, 2016 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 E78.2 ; Chronic seasonal allergic rhinitis due to other allergen J30.2 ; Family history of early CAD Z82.49 ; Other chronic pain G89.29 and Pain in left shoulder M25.512 [facility] [place] [address] [place] [address] Nov, Acute pain of left shoulder M25.512 [facility] [place] [id number] [place] [address] Oct, Sciatica M54.30 [facility] [place] [id number] [place] [address] Oct, [facility] [place] [address] [address] Sep, Sciatica M54.30 [facility] [place] [id number] [place] [address] Sep, Acute pain of left shoulder M25.512 [facility] [place] [id number] [place] [address] Sep, Acute pain of left shoulder M25.512 [place] [id number] [place] [address] Aug, Sciatica M54.30 [facility] [place] [id number] [place] [address] Aug, Sciatica M54.30 ; Tobacco abuse Z72.0 and Tobacco abuse counseling Z71.6 [place] [id number] [place] [address] Aug, Acute pain of left shoulder M25.512 [facility] [id number] [place] [address] Aug, Contusion of right shoulder, initial encounter S40.011A ; Acute pain of left shoulder M25.512 and Shortness of breath R06.02 [facility] [place] [id number] [place] [address] Aug, Lumbago with sciatica, right side M54.41 [facility] [place] [id number] [place] [address] July, [facility] [place] [id number] [place] [address] July, Lumbago with sciatica, right side M54.41 [facility] [place] [address] [address] Jun, Lumbago with sciatica, right side M54.41 [facility] [place] [id number] [place] [address] May, Lumbago with sciatica, right side M54.41 [facility] [address] [address] May, Herpes zoster without complication B02.9 [facility] [address] [address] May, Back pain M54.9 and Acute right-sided low back pain with right-sided sciatica M54.41 [place] [id number] [place] [address] Apr, [place] [address] [address] Apr, Lumbago with sciatica, right side M54.41 and Other chronic pain G89.29 [place] [facility] [id number] [place] [address] Apr, [place] [id number] [place] [address] Mar, [place] [id number] [place] [address] Mar, [place] [address] [address] Feb, [facility] [id number] [place] [address] Jan, Urinary frequency R35.0 [place] [address] [address] Jan, [facility] [place] [address] [address] Dec, [facility] [place] [id number] [place] [address] Oct, [facility] [place] [id number] [place] [address] Sep, [facility] [id number] [place] [address] Sep, Foreign body in left foot, initial encounter S90.852A [facility] [place] [id number] [place] [address] Aug, [facility] [place] [id number] [place] [address] July, Sciatica M54.30 [facility] [place] [id number] [place] [address] Jun, [facility] [place] [id number] [place] [address] May, Osteoarthritis M19.90 [facility] [place] [id number] [place] [address] May, [facility] [place] [id number] [place] [address] May, Pain in right hip M25.551 [facility] [id number] [place] [address] May, Tinea corporis B35.4 [facility] [place] [id number] [place] [address] 10 Apr, 2015 Pain in right hip M25.551 [facility] [place] [id number] [place] [address] Mar, Pain in right hip M25.551 [facility] [place] [id number] [address] Mar, [facility] [place] [id number] [place] [address] Feb, Pain in right hip M25.551 [facility] [place] [id number] [place] [address] Jan, Acute bronchitis, unspecified organism J20.9 and Cough R05 [facility] [place] [id number] [place] [address] Jan, Pain in right hip M25.551 [facility] [place] [id number] [place] [address] Dec, Pain in right hip M25.551 [facility] [place] [id number] [place] [address] Nov, Acute bronchitis 466.0 [facility] [place] [id number] [place] [address] Nov, [facility] [place] [id number] [place] [address] Oct, [facility] [place] [id number] [place] [address] Sep, [facility] [place] [id number] [place] [address] Aug, [facility] [place] [id number] [place] [address] July, [facility] [place] [id number] [place] [address] Jun, [facility] [place] [id number] [place] [address] Jun, [facility] [place] [address], [place] [address] May, [facility] [place] [id number] [place] [address] May, [facility] [place] [facility] [address] [id number] [place] [address] Apr, 2014 [facility] [place] [facility] [address] [id number] [place] [address] Apr, 2014 [facility] [place] [facility] [address] [id number] [place] [address] Apr, 2014 [facility] [place] [facility] [address] [id number] [place] [address] Apr, 2014 [facility] [place] [facility] [address] [id number] [place] [address] Apr, 2014 [facility] [place] [facility] [address] [facility] [id number] [place] [address] Apr, 2014 [facility] [place] [facility] [address] [facility] [id number] [place] [address] Mar, [facility] [place] [facility] [address] [facility] [id number] [place] [address] Mar, [facility] [place] [facility] [address] [facility] [id number] [place] [address] 15 Feb, 2014 [facility] [place] [facility] [address] [facility] [id number] [place] [address] 15 Feb, 2014 [facility] [place] [facility] [address] [facility] [id number] [place] [address] Feb, [facility] [place] [facility] [address] [id number] [address] Dec, [facility] [place] [facility] [address] [id number] [place] [address] Dec, [facility] [place] [facility] [address] [facility] [id number] [place] [address] 17 Nov, 2013 [facility] [place] [facility] [address] [id number] [place] [address] Nov, [facility] [place] [facility] [address] [id number] [place] [address] Nov, [facility] [place] [facility] [address] [id number] [place] [address] Nov, [facility] [place] [facility] [address] [id number] [place] [address] Sep, [facility] [place] [facility] [address] [id number] [place] [address] Sep, [facility] [place] [facility] [address] [id number] [place] [address] Sep, [facility] [place] [facility] [address] [id number] [place] [address] Sep, [facility] [place] [facility] [address] [id number] [place] [address] Aug, [facility] [place] [facility] [address] [id number] [place] [address] Aug, [facility] [place] [facility] [address] [id number] [place] [address] Aug, [facility] [place] [facility] [address] [id number] [place] [address] Aug, [facility] [place] [facility] [address] [id number] [place] [address] July, [facility] [place] [facility] [address] [id number] [place] [address] July, [facility] [place] [facility] [address] [id number] [place] [address] Jun, [facility] [place] [facility] [address] [id number] [place] [address] Jun, [facility] [place] [facility] [address] [id number] [place] [address] Jun, [facility] [place] [facility] [address] [id number] [place] [address] Jun, [facility] [place] [facility] [address] [id number] [place] [address] Jun, [facility] [place] [facility] [address] [id number] [place] [address] Jun, [facility] [place] [facility] [address] [id number] [place] [address] Jun, [facility] [place] [facility] [address] [id number] [place] [address] Jun, [facility] [place] [facility] [address] [id number] [place] [address] May, [facility] [place] [facility] [address] [id number] [place] [address] May, [facility] [place] [facility] [address] [id number] [place] [address] May, [facility] [place] [facility] [address] [id number] [place] [address] May, [facility] [place] [facility] [address] [id number] [place] [address] May, [facility] [place] [facility] [address] [id number] [place] [address] May, [facility] [place] [facility] [address] [id number] [place] [address] Apr, [facility] [place] [facility] [address] [id number] [place] [address] Apr, [facility] [place] [facility] [address] [id number] [place] [address] Apr, [facility] [place] [facility] [address] [id number] [place] [address] Apr, [facility] [place] [facility] [address] [id number] [place] [address] Mar, [facility] [place] [facility] [address] [id number] [place] [address] Mar, [facility] [place] [facility] [address] [id number] [place] [address] Mar, [facility] [place] [facility] [address] [id number] [place] [address] Mar, [facility] [place] [facility] [address] [id number] [place] [address] Mar, [facility] [place] [facility] [address] [id number] [place] [address] Mar, [facility] [place] [facility] [address] [id number] [place] [address] Feb, [facility] [place] [facility] [address] [id number] [place] [address] Feb, [facility] [place] [facility] [address] [id number] [place] [address] Feb, [facility] [place] [facility] [address] [id number] [place] [address] Feb, [facility] [place] [facility] [address] [id number] [place] [address] Feb, [facility] [place] [facility] [address] [id number] [place] [address] Feb, [facility] [facility] [address] [id number] [place] [address] Feb, [facility] [place] [facility] [address] [id number] [place] [address] Feb, [facility] [place] [facility] [address] [id number] [place] [address] Feb, [facility] [address] [id number] [place] [address] Feb, [facility] [place] [facility] [address] [id number] [place] [address] Feb, [facility] [place] [facility] [address] [id number] [place] [address] Feb, [facility] [place] [facility] [address] [id number] [place] [address] Jan, [facility] [place] [facility] [address] [id number] [place] [address] Jan, [facility] [place] [facility] [address] [id number] [place] [address] Jan, [facility] [place] [facility] [address] [id number] [place] [address] Jan, [facility] [place] [facility] [address] [id number] [place] [address] Jan, [facility] [place] [facility] [address] [id number] [place] [address] Jan, [facility] [place] [facility] [address] [id number], [place] [address] Jan, [facility] [facility] [address] [id number], [place] [address] Jan, [facility] [facility] [address] [id number], [place] [address] Jan, [facility] [address] [id number], [place] [address] Jan, [facility] [address] [id number], [place] [address] Dec, [facility] [facility] [address] [id number], [place] [address] Dec, [facility] [facility] [address] [id number], [place] [address] Nov, [facility] [address] [id number], [place] [address] Nov, [facility] [facility] [address] [id number] [place] [address] Nov, 2012 [facility] [facility] [address] [id number] [place] [address] 05 Nov, 2012 [facility] [address] [id number] [place] [address] Nov, [facility] [address] [id number] [place] [address] Oct, [facility] [place] [facility] [address] [id number] [place] [address] Oct, [facility] [place] [facility] [address] [id number] [place] [address] Oct, [facility] [place] [facility] [address] [id number] [place] [address] Oct, [facility] [address] [id number] [place] [address] Oct, [facility] [address] [id number] [place] [address] Sep, [facility] [place] [facility] [address] [id number] [place] [address] Sep, [facility] [address] [id number] [place] [address] Sep, [facility] [address] [id number] [place] [address] Sep, [facility] [address] [id number] [place] [address] Sep, [facility] [address] [id number] [place] [address] Sep, [facility] [address] [id number] [place] [address] Aug, [facility] [address] [id number] [place] [address] Aug, [facility] [address] [id number] [place] [address] July, [facility] [address] [id number] [place] [address] July, [facility] [address] [id number] [place] [address] July, [facility] [address] [id number] [place] [address] Jun, [facility] [address] [id number] [place] [address] Jun, [facility] [address] [id number] [place] [address] Jun, [facility] [address] [id number] [place] [address] Jun, [facility] [address] [id number] [place] [address] May, [facility] [address] [id number] [place] [address] May, [facility] [address] [id number] [place] [address] Apr, [facility] [address] [id number] [place] [address] Apr, [facility] [address] [id number] [place] [address] Apr, [facility] [address] [id number] [place] [address] Apr, [facility] [address] [id number] [place] [address] 13 Apr, 2012 [facility] [address] [id number] [place] [address] Apr, [facility] [address] [id number] [address] Apr, [facility] [address] [id number] [place] [address] Apr, [facility] [address] [facility] [id number] [place] [address] Mar, [facility] [address] [facility] [id number] [place] [address] Mar, [facility] [address] [id number] [place] [address] Mar, [facility] [address] [facility] [id number] [place] [address] Mar, [facility] [address] [facility] [id number] [place] [address] Jan, [facility] [id number] [place] [address] Jan, [facility] [address] [facility] [id number] [place] [address] Jan, [facility] [id number] [address] Jan, [facility] [address] [id number] [place] [address] Jan, [facility] [address] [id number] [place] [address] Dec, [facility] [address] [facility] [id number], [place] [address] Dec, [facility] [address] [facility] [id number] [place] [address] Dec, [facility] [address] [facility] [id number] [place] [address] Dec, [facility] [address] [facility] [id number], [place] [address] Nov, [facility] [address] [id number] [place] [address] Oct, [facility] [address] [id number] [place] [address] Oct, [facility] [address] [id number] [place] [address] Oct, [facility] [address] [id number] [place] [address] Oct, [facility] [address] [id number] [place] [address] Oct, [facility] [address] [id number] [place] [address] Sep, [facility] [address] [id number] [place] [address] Sep, [facility] [address] [id number] [place] [address] Aug, [facility] [address] [id number] [place] [address] Aug, [facility] [address] [id number] [place] [address] Aug, [facility] [address] [id number] [place] [address] Aug, [facility] [address] [id number] [place] [address] July, [facility] [address] [id number] [place] [address] Jun, [facility] [address] [id number] [place] [address] May, [facility] [address] [id number] [place] [address] May, [facility] [address] [id number] [place] [address] May, [facility] [address] [id number] [place] [address] 30 Mar, 2011 [facility] [address] [id number] [place] [address] Feb, [facility] [address] [id number] [place] [address] Feb, [facility] [address] [id number] [place] [address] Jan, [facility] [address] [id number] [place] [address] Jan, [facility] [address] [id number] [place] [address] Jan, [facility] [address] [id number] [place] [address] Jan, [facility] [address] [id number] [place] [address] Jan, [facility] [address] [id number] [place] [address] Dec, [facility] [address] [id number] [place] [address] Dec, [facility] [address] [id number], [place] [address] Dec, [facility] [address] [id number], [place] [address] 18 May, 2009 [facility] [address] [id number] [place] [address] 15 May, 2009 [facility] [address] [id number] [place] [address] 17 Apr, 2009 [facility] [address] [id number] [place] [address] Jan, [facility] [address] [facility] [id number] [place] [address] 11 Apr, 2008 IMMUNIZATIONS No Known Immunizations SOCIAL HISTORY Never Assessed REASON FOR VISIT [facility] [place] CARE VITAL SIGNS MEDICATIONS Unknown [...] [facility], heart- kidney- Stayed [facility] ICU 12/2017 Hospitalization History [facility] 03/2018
--- OUTSIDE RECORDS SUMMARY | 2018-10-30 20:33 | XMS REPORT ---
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 Active 079639665 Problem Lumbago with sciatica, right side M54.41 Active 168028295 Problem Other chronic pain G89.29 Active 16291585 Problem Other chronic pain G89.29 Active 83404465 Problem Acute right-sided low back pain with right-sided sciatica M54.41 Active 043658070 Problem Anxiety F41.9 Active 46901190 Problem Asymptomatic menopausal state Z78.0 Active 73259548 Problem Episode of recurrent major depressive disorder, unspecified depression episode severity F33.9 Active 490880500 Problem Sialoadenitis, unspecified K11.20 Active 22016910 Problem Other organ or system involvement in systemic lupus erythematosus M32.19 Active 74683100 Problem Sciatica M54.30 Active 00546100 Problem 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 20551205 Problem 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 E78.2 Active 072619903 Problem HILARIO (obstructive sleep apnea) G47.33 Active 38930196 Problem Right renal artery stenosis I70.1 Active [id number] Problem Systemic lupus erythematosus, unspecified SLE type, unspecified organ involvement status M32.9 Active 27268329 Problem Chronic anticoagulation Z79.01 Active 066769908 Problem senior living 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 Z79.01 Active 519529992 ALLERGIES No Information ENCOUNTERS Encounter Location Date Diagnosis [facility] [address] [facility] [id number] [place] [address] May, [facility] [id number] [place] [address] May, Nausea with vomiting, unspecified R11.2 [facility] [id number] [place] [address] May, Non-recurrent acute suppurative otitis media of right ear without spontaneous rupture of tympanic membrane H66.001 and Chronic anticoagulation Z79.01 [place] [address] [address] May, Other chronic pain G89.29 [facility] [id number] [place] [address] Apr, Skin tear of right forearm without complication, initial encounter S51.811A ; Skin tear of left forearm without complication, initial encounter S51.812A and Encounter for immunization Z23 [place] [address] [address] Apr, [facility] [id number] [place] [address] Apr, Diarrhea, unspecified R19.7 ; Nausea with vomiting, unspecified R11.2 and 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 [place] [id number] [place] [address] Apr, Other chronic pain G89.29 [facility] [place] [id number] [place] [address] Mar, Other chronic pain G89.29 [facility] [id number] [place] [address] Mar, Other chronic pain G89.29 [facility] [id number] [place] [address] Mar, [place] [id number] [place] [address] Mar, Other organ or system involvement in systemic lupus erythematosus M32.19 [place] [address] [place] [address] Mar, Non-recurrent acute suppurative otitis media of right ear without spontaneous rupture of tympanic membrane H66.001 and Chronic anticoagulation Z79.01 [facility] [address] [place] [address] Feb, Sialoadenitis, unspecified K11.20 [facility] [id number] [place] [address] Feb, Other chronic pain G89.29 [place] [address] [address] Jan, [employer] 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 Z79.01 [place] [id number] [place] [address] Jan, Other chronic pain G89.29 ; Lumbago with sciatica, right side M54.41 ; Other chronic pain G89.29 ; Tobacco abuse Z72.0 ; Tobacco abuse counseling Z71.6 ; 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 E78.2 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 [place] [id number] [place] [address] Jan, [place] [id number] [place] [address] Dec, [facility] [id number] [place] [address] Dec, [facility] [place] [id number] [place] [address] Dec, [place] [id number] [place] [address] Dec, 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 E78.2 ; Other chronic [...] involvement in systemic lupus erythematosus M32.19 [facility] [address] [place], [place] [id number] Dec, Right renal artery stenosis I70.1 ; Other organ or system involvement in systemic lupus erythematosus M32.19 ; Hepatitis C B19.20 ; Tobacco abuse Z72.0 and Weakness R53.1 [facility] [address] [place] [id number] Dec, [facility] [id number] [place] [address] Dec, [facility] [id number] [place] [address] Dec, Other organ or system involvement in systemic lupus erythematosus M32.19 [facility] [address] [place] [id number] Dec, Right renal artery stenosis I70.1 ; Injury of right kidney, sequela S37.001S ; Tobacco abuse Z72.0 ; Systemic lupus erythematosus, unspecified SLE type, unspecified organ involvement status M32.9 ; Hepatitis C B19.20 and Candidiasis of female genitalia B37.3 [facility] [address] [place] [address] Dec, Other organ or system involvement in systemic lupus erythematosus M32.19 [facility] [address] [place] [address] Dec, Other organ or system involvement in systemic lupus erythematosus M32.19 [facility] [id number] [place] [address] Dec, [facility] [id number] [address] Nov, Other organ or system involvement in systemic lupus erythematosus M32.19 [facility] [address] [address] Oct, 2018 Other organ or system involvement in systemic lupus erythematosus M32.19 [place] [address] [address] Sep, Other organ or system involvement in systemic lupus erythematosus M32.19 [place] [address] [address] Aug, Anxiety F41.9 [place] [facility] [address] [address] Aug, Other organ or system involvement in systemic lupus erythematosus M32.19 [place] [id number] [place] [address] July, Medicare annual wellness visit, initial Z00.00 ; Anxiety F41.9 ; HILARIO (obstructive sleep apnea) G47.33 ; Hepatitis C B19.20 ; Other chronic pain G89.29 ; Asymptomatic menopausal state Z78.0 and Episode of recurrent major depressive disorder, unspecified depression episode severity F33.9 [place] [address] [address] July, Anxiety F41.9 [place] [address] [address] July, Other organ or system involvement in systemic lupus erythematosus M32.19 [place] [address] [address] July, [place] [address] [address] Jun, Other organ or system involvement in systemic lupus erythematosus M32.19 ; BMI 40.0-44.9, adult Z68.41 ; Other chronic pain G89.29 and Controlled substance agreement signed Z79.899 [facility] [address] [address] May, Sciatica M54.30 [facility] [id number] [place] [address] Apr, Sciatica M54.30 [facility] [address] [address] Mar, Sciatica M54.30 [facility] [id number] [place] [address] Feb, Sciatica M54.30 [facility] [address] [address] 15 Jan, 2017 Sciatica M54.30 [place] [address] [address] 14 Jan, 2017 Sciatica M54.30 [place] [id number] [place] [address] 19 Dec, 2016 Sciatica M54.30 [place] [id number] [place] [address] 18 Dec, 2016 Sciatica M54.30 [facility] [id number] [place] [address] 29 Nov, 2016 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 E78.2 ; Chronic seasonal allergic rhinitis due to other allergen J30.2 and Family history of early CAD Z82.49 [place] [id number] [place] [address] Nov, Sciatica M54.30 [facility] [id number] [place] [address] 18 Nov, 2016 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 E78.2 ; Chronic seasonal allergic rhinitis due to other allergen J30.2 ; Family history of early CAD Z82.49 ; Other chronic pain G89.29 and Pain in left shoulder M25.512 [place] [id number] [place] [address] 11 Nov, 2016 Acute pain of left shoulder M25.512 [place] [id number] [place] [address] Oct, Sciatica M54.30 [facility] [id number] [place] [address] Oct, [facility] [id number] [place] [address] Sep, Sciatica M54.30 [facility] [id number] [place] [address] Sep, Acute pain of left shoulder M25.512 [facility] [id number] [place] [address] Sep, Acute pain of left shoulder M25.512 [facility] [id number] [place] [address] Aug, Sciatica M54.30 [facility] [id number] [place] [address] Aug, Sciatica M54.30 ; Tobacco abuse Z72.0 and Tobacco abuse counseling Z71.6 [facility] [id number] [place] [address] Aug, Acute pain of left shoulder M25.512 [facility] [address] [place] [address] Aug, Contusion of right shoulder, initial encounter S40.011A ; Acute pain of left shoulder M25.512 and Shortness of breath R06.02 [facility] [address] [address] Aug, Lumbago with sciatica, right side M54.41 [facility] [id number] [place] [address] July, [facility] [id number] [place] [address] July, Lumbago with sciatica, right side M54.41 [facility] [id number] [place] [address] Jun, Lumbago with sciatica, right side M54.41 [facility] [address] [address] May, Lumbago with sciatica, right side M54.41 [facility] [address] [address] May, Herpes zoster without complication B02.9 [facility] [address] [address] May, Back pain M54.9 and Acute right-sided low back pain with right-sided sciatica M54.41 [facility] [address] [address] Apr, [facility] [address] [address] Apr, Lumbago with sciatica, right side M54.41 and Other chronic pain G89.29 [facility] [address] [address] Apr, [facility] [address] [address] Mar, [facility] [id number] [place] [address] Mar, [facility] [id number] [place] [address] Feb, [facility] [id number] [place] [address] Jan, Urinary frequency R35.0 [facility] [address] [address] Jan, [facility] [id number] [place] [address] Dec, [facility] [address] [address] Oct, [facility] [id number] [place] [address] Sep, [facility] [address] [address] Sep, Foreign body in left foot, initial encounter S90.852A [facility] [id number] [place] [address] Aug, [facility] [id number] [place] [address] July, Sciatica M54.30 [facility] [id number] [place] [address] Jun, [facility] [id number] [place] [address] May, Osteoarthritis M19.90 [facility] [id number] [place] [address] May, [facility] [id number] [place] [address] May, Pain in right hip M25.551 [facility] [address] [address] May, Tinea corporis B35.4 [facility] [address] [address] Apr, Pain in right hip M25.551 [facility] [id number] [place] [address] Mar, Pain in right hip M25.551 [facility] [address] [address] Mar, [facility] [id number] [place] [address] Feb, Pain in right hip M25.551 [facility] [address] [place] [address] Jan, Acute bronchitis, unspecified organism J20.9 and Cough R05 [facility] [address] [address] Jan, Pain in right hip M25.551 [facility] [id number] [place] [address] Dec, Pain in right hip M25.551 [facility] [id number] [place] [address] Nov, Acute bronchitis 466.0 [facility] [id number] [place] [address] Nov, [facility] [id number] [place] [address] Oct, [facility] [address] [place] [address] Sep, [facility] [id number] [place] [address] Aug, [facility] [address] [address] July, [facility] [address] [place] [address] 14 Jun, 2014 [facility] [address] [place] [address] Jun, [facility] [address] [place] [address] May, [facility] [address] [address] May, [facility] [address] [place] [address] Apr, [facility] [place] [facility] [address] [id number] [place] [address] Apr, 2014 [facility] [place] [facility] [address] [id number] [place] [address] Apr, 2014 [facility] [place] [facility] [address] [id number] [place] [address] Apr, 2014 [facility] [place] [facility] [address] [id number] [place] [address] Apr, 2014 [facility] [place] [facility] [address] [id number] [place] [address] Apr, [facility] [place] [facility] [address] [id number] [place] [address] Mar, [facility] [place] [facility] [address] [id number] [place] [address] Mar, [facility] [place] [facility] [address] [id number] [place] [address] Feb, [facility] [place] [facility] [address] [id number] [place] [address] Feb, [facility] [place] [facility] [address] [id number] [place] [address] Feb, [facility] [place] [facility] [address] [id number] [place] [address] Dec, [facility] [place] [facility] [address] [id number] [address] Dec, [facility] [place] [facility] [address] [id number] [place] [address] Nov, [facility] [place] [facility] [address] [id number] [place] [address] Nov, [facility] [place] [facility] [address] [id number] [place] [address] Nov, [facility] [place] [facility] [address] [id number] [place] [address] Nov, [facility] [place] [facility] [address] [id number] [place] [address] Sep, [facility] [place] [facility] [address] [id number] [place] [address] Sep, [facility] [place] [facility] [address] [id number] [place] [address] Sep, [facility] [place] [facility] [address] [id number] [place] [address] Sep, [facility] [place] [facility] [address] [id number] [place] [address] Aug, [facility] [place] [facility] [address] [id number] [place] [address] Aug, [facility] [place] [facility] [address] [id number] [place] [address] Aug, [facility] [place] [facility] [address] [id number] [place] [address] Aug, [facility] [place] [facility] [address] [id number] [place] [address] July, [facility] [place] [facility] [address] [id number] [place] [address] July, [facility] [place] [facility] [address] [id number] [place] [address] Jun, [facility] [place] [facility] [address] [id number] [place] [address] Jun, [facility] [place] [facility] [address] [id number] [place] [address] Jun, [facility] [place] [facility] [address] [id number] [place] [address] Jun, [facility] [place] [facility] [address] [id number] [place] [address] Jun, [facility] [place] [facility] [address] [id number] [place] [address] Jun, [facility] [place] [facility] [address] [id number] [place] [address] Jun, [facility] [place] [facility] [address] [id number] [place] [address] Jun, [facility] [place] [facility] [address] [id number] [place] [address] May, [facility] [place] [facility] [address] [id number] [place] [address] May, [facility] [place] [facility] [address] [id number] [place] [address] May, [facility] [place] [facility] [address] [id number] [place] [address] May, [facility] [place] [facility] [address] [id number] [place] [address] May, [facility] [place] [facility] [address] [id number] [place] [address] May, [facility] [place] [facility] [address] [id number] [place] [address] Apr, [facility] [place] [facility] [address] [id number] [place] [address] Apr, [facility] [place] [facility] [address] [id number] [place] [address] Apr, [facility] [place] [facility] [address] [id number] [place] [address] Apr, [facility] [place] [facility] [address] [id number] [place] [address] Mar, [facility] [place] [facility] [address] [id number] [place] [address] Mar, [facility] [place] [facility] [address] [id number] [address] Mar, [facility] [address] [id number] [place] [address] Mar, [facility] [address] [id number] [place] [address] Mar, [facility] [address] [id number] [place] [address] Mar, [facility] [address] [id number] [place] [address] Feb, [facility] [address] [id number] [place] [address] Feb, [facility] [address] [id number] [place] [address] Feb, [facility] [address] [id number] [place] [address] Feb, [facility] [address] [id number] [place] [address] Feb, [facility] [address] [id number] [place] [address] Feb, [facility] [address] [id number] [place] [address] Feb, [facility] [address] [id number] [address] Feb, [facility] [place] [facility] [address] [id number], [place] [address] Feb, [facility] [place] [facility] [address] [id number], [place] [address] Feb, [facility] [place] [facility] [address] [id number], [place] [address] Feb, [facility] [place] [facility] [address] [id number] [place] [address] Feb, [facility] [place] [facility] [address] [id number] [place] [address] Jan, [facility] [place] [facility] [address] [id number] [place] [address] Jan, [facility] [place] [facility] [address] [id number] [place] [address] Jan, [facility] [place] [facility] [address] [id number] [place] [address] Jan, [facility] [place] [facility] [address] [id number] [place] [address] Jan, [facility] [place] [facility] [address] [id number] [place] [address] Jan, [facility] [place] [facility] [address] [id number] [place] [address] Jan, [facility] [place] [facility] [address] [id number] [place] [address] Jan, [facility] [place] [facility] [address] [id number] [place] [address] Jan, [facility] [place] [facility] [address] [id number] [place] [address] Jan, [facility] [place] [facility] [address] [id number] [place] [address] Dec, [facility] [place] [facility] [address] [id number] [place] [address] Dec, [facility] [place] [facility] [address] [id number] [place] [address] Nov, [facility] [place] [facility] [address] [id number] [place] [address] Nov, [facility] [place] [facility] [address] [id number] [place] [address] Nov, [facility] [place] [facility] [address] [id number] [place] [address] Nov, [facility] [place] [facility] [address] [id number] [place] [address] Nov, [facility] [place] [facility] [address] [id number] [place] [address] Oct, [facility] [place] [facility] [address] [id number] [place] [address] Oct, [facility] [place] [facility] [address] [id number] [place] [address] Oct, [facility] [place] [facility] [address] [id number] [place] [address] Oct, [facility] [place] [facility] [address] [id number] [place] [address] Oct, [facility] [place] [facility] [address] [id number] [place] [address] Sep, [facility] [place] [facility] [address] [id number] [place] [address] Sep, [facility] [place] [facility] [address] [id number] [place] [address] Sep, [facility] [place] [facility] [address] [id number] [place] [address] Sep, [facility] [place] [facility] [address] [id number] [place] [address] Sep, [facility] [place] [facility] [address] [id number] [place] [address] Sep, [facility] [place] [facility] [address] [id number] [place] [address] Aug, [facility] [place] [facility] [address] [id number] [place] [address] Aug, [facility] [place] [facility] [address] [id number] [place] [address] July, [facility] [place] [facility] [address] [id number] [place] [address] July, [facility] [address] [id number] [place] [address] July, [facility] [place] [facility] [address] [id number] [place] [address] Jun, [facility] [place] [facility] [address] [id number] [place] [address] Jun, [facility] [place] [facility] [address] [id number] [place] [address] Jun, [facility] [place] [facility] [address] [id number] [place] [address] Jun, [facility] [place] [facility] [address] [id number] [place] [address] May, [facility] [place] [facility] [address] [id number] [place] [address] May, [facility] [place] [facility] [address] [id number] [place] [address] Apr, [facility] [place] [facility] [id number] [address] Apr, [facility] [place] [facility] [address] [facility] [id number] [place] [address] Apr, [facility] [place] [facility] [address] [id number] [place] [address] Apr, [facility] [place] [facility] [address] [facility] [id number] [place] [address] Apr, [facility] [place] [facility] [address] [facility] [id number] [place] [address] Apr, [facility] [place] [facility] [address] [id number] [place] [id number] Apr, [facility] [place] [facility] [address] [id number] [place] [address] Apr, [facility] [place] [facility] [address] [id number] [place] [address] Mar, [facility] [place] [facility] [address] [id number] [place] [address] Mar, [facility] [place] [facility] [address] [id number] [place] [address] Mar, [facility] [place] [facility] [address] [id number] [place] [address] Mar, [facility] [place] [facility] [address] [id number] [place] [address] Jan, [facility] [place] [facility] [address] [id number] [place] [address] Jan, [facility] [place] [facility] [address] [id number] [place] [address] Jan, [facility] [place] [facility] [address] [id number] [address] Jan, [facility] [place] [facility] [address] [id number] [place] [address] Jan, [facility] [place] [facility] [address] [facility] [id number][place] [address] Dec, [facility] [place] [facility] [address] [id number], [place] [address] Dec, [facility] [place] [facility] [address] [id number], [place] [address] Dec, [facility] [place] [facility] [address] [id number][place] [address] Dec, [facility] [place] [facility] [address] [id number], [place] [address] Nov, [facility] [place] [facility] [address] [facility] [id number], [place] [address] Oct, [facility] [place] [facility] [address] [id number][place] [address] Oct, [facility] [place] [facility] [address] [id number] [place] [address] Oct, [facility] [place] [facility] [address] [id number] [place] [address] Oct, [facility] [place] [facility] [address] [id number] [place] [address] Oct, [facility] [place] [facility] [address] [id number] [place] [address] Sep, [facility] [place] [facility] [address] [id number] [place] [address] Sep, [facility] [place] [facility] [address] [id number] [place] [address] Aug, [facility] [place] [facility] [address] [id number] [place] [address] Aug, [facility] [place] [facility] [address] [id number] [place] [address] Aug, [facility] [place] [facility] [address] [id number] [place] [address] Aug, [facility] [place] [facility] [address] [id number] [address] July, [facility] [place] [facility] [address] [id number] [place] [address] Jun, [facility] [place] [facility] [address] [id number] [place] [address] May, [facility] [place] [facility] [address] [id number] [place] [address] May, [facility] [place] [facility] [address] [id number] [place] [address] May, [facility] [place] [facility] [address] [id number] [place] [address] Mar, [facility] [place] [facility] [address] [facility] [id number][place] [address] Feb, [facility] [address] [facility] [id number], [place] [address] Feb, [facility] [address] [facility] [id number], [place] [address] Jan, [facility] [address] [facility] [id number][place] [address] Jan, [facility] [address] [facility] [id number], [place] [address] Jan, [facility] [address] [facility] [id number][place] [address] Jan, [facility] [address] [facility] [id number], [place] [address] Jan, [facility] [id number] [address] Dec, [facility] [address] [facility] [id number][place] [address] Dec, [facility] [id number] [address] Dec, [facility] [address] [id number] [address] May, [facility] [address] [id number] [address] 15 May, 2009 [facility] [address] [facility] [id number], [place] [address] 17 Apr, 2009 [facility] [address] [facility] [id number], [place] [address] Jan, [facility] [address] [facility] [id number][place] [address] 11 Apr, 2008 IMMUNIZATIONS No Known Immunizations SOCIAL HISTORY Never Assessed [place] [place] [...] for cancer Hospitalization History surgeries Hospitalization History [facility] ER, heart- kidney- Stayed [facility] ICU 12/2017 Hospitalization History [facility] ER 03/2018
--- OUTSIDE RECORDS SUMMARY | 2018-10-30 20:33 | XMS REPORT ---
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 Active 412090835 Problem Lumbago with sciatica, right side M54.41 Active 585845543 Problem Other chronic pain G89.29 Active 66108171 Problem Other chronic pain G89.29 Active 55143999 Problem Acute right-sided low back pain with right-sided sciatica M54.41 Active 206464957 Problem Anxiety F41.9 Active 77511693 Problem Asymptomatic menopausal state Z78.0 Active 28940118 Problem Episode of recurrent major depressive disorder, unspecified depression episode severity F33.9 Active 993192780 Problem Sialoadenitis, unspecified K11.20 Active 27858019 Problem Other organ or system involvement in systemic lupus erythematosus M32.19 Active 68283164 Problem Sciatica M54.30 Active 89028683 Problem 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 89332142 Problem 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 E78.2 Active 246385782 Problem HILARIO (obstructive sleep apnea) G47.33 Active 35626368 Problem Right renal artery stenosis I70.1 Active [id number] Problem Systemic lupus erythematosus, unspecified SLE type, unspecified organ involvement status M32.9 Active 60669705 Problem Chronic anticoagulation Z79.01 Active 927862337 Problem FDC 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 Z79.01 Active 634545705 ALLERGIES No Information ENCOUNTERS Encounter Location Date Diagnosis [facility] [address] [facility] [id number] [place] [address] May, [facility] [id number] [place] [address] May, Nausea with vomiting, unspecified R11.2 [place] [id number] [place] [address] May, Non-recurrent acute suppurative otitis media of right ear without spontaneous rupture of tympanic membrane H66.001 and Chronic anticoagulation Z79.01 [place] [address] [address] May, Other chronic pain G89.29 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 [place] [id number] [place] [address] Apr, Other chronic pain G89.29 [place] [id number] [place] [address] Mar, Other chronic pain G89.29 [place] [id number] [place] [address] Mar, Other chronic pain G89.29 [facility] [id number] [place] [address] Mar, [place] [id number] [place] [address] Mar, Other organ or system involvement in systemic lupus erythematosus M32.19 [place] [id number] [place] [address] Mar, Non-recurrent acute suppurative otitis media of right ear without spontaneous rupture of tympanic membrane H66.001 and Chronic anticoagulation Z79.01 [facility] [id number] [place] [address] Feb, Sialoadenitis, unspecified K11.20 [facility] [id number] [place] [address] Feb, Other chronic pain G89.29 [place] [address] [address] Jan, [employer] 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 Z79.01 [place] [id number] [place] [address] Jan, Other chronic pain G89.29 ; Lumbago with sciatica, right side M54.41 ; Other chronic pain G89.29 ; Tobacco abuse Z72.0 ; Tobacco abuse counseling Z71.6 ; 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 E78.2 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 [place] [id number] [place] [address] Jan, [place] [id number] [place] [address] Dec, [place] [id number] [place] [address] Dec, [place] [id number] [place] [address] Dec, [place] [id number] [place] [address] Dec, 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 E78.2 ; Other chronic [...] in systemic lupus erythematosus M32.19 [facility] [address] [place] [id number] Dec, Right renal artery stenosis I70.1 ; Other organ or system involvement in systemic lupus erythematosus M32.19 ; Hepatitis C B19.20 ; Tobacco abuse Z72.0 and Weakness R53.1 [facility] [address] [place] [id number] Dec, [facility] [id number] [place] [address] Dec, [facility] [id number] [place] [address] Dec, Other organ or system involvement in systemic lupus erythematosus M32.19 [facility] [address] [place] [id number] Dec, Right renal artery stenosis I70.1 ; Injury of right kidney, sequela S37.001S ; Tobacco abuse Z72.0 ; Systemic lupus erythematosus, unspecified SLE type, unspecified organ involvement status M32.9 ; Hepatitis C B19.20 and Candidiasis of female genitalia B37.3 [facility] [id number] [place] [address] Dec, Other organ or system involvement in systemic lupus erythematosus M32.19 [facility] [id number] [place] [address] Dec, Other organ or system involvement in systemic lupus erythematosus M32.19 [facility] [id number] [place] [address] Dec, [facility] [id number] [address] Nov, Other organ or system involvement in systemic lupus erythematosus M32.19 [facility] [address] [address] Oct, 2018 Other organ or system involvement in systemic lupus erythematosus M32.19 [place] [address] [address] Sep, Other organ or system involvement in systemic lupus erythematosus M32.19 [place] [address] [address] Aug, Anxiety F41.9 [place] [id number] [address] Aug, Other organ or system involvement in systemic lupus erythematosus M32.19 [place] [id number] [place] [address] July, Medicare annual wellness visit, initial Z00.00 ; Anxiety F41.9 ; HILARIO (obstructive sleep apnea) G47.33 ; Hepatitis C B19.20 ; Other chronic pain G89.29 ; Asymptomatic menopausal state Z78.0 and Episode of recurrent major depressive disorder, unspecified depression episode severity F33.9 [place] [address] [address] July, Anxiety F41.9 [place] [address] [address] July, Other organ or system involvement in systemic lupus erythematosus M32.19 [place] [address] [address] July, [place] [address] [address] Jun, Other organ or system involvement in systemic lupus erythematosus M32.19 ; BMI 40.0-44.9, adult Z68.41 ; Other chronic pain G89.29 and Controlled substance agreement signed Z79.899 [facility] [address], [place] [address] May, Sciatica M54.30 [facility] [id number] [place] [address] Apr, Sciatica M54.30 [facility] [address] [address] Mar, Sciatica M54.30 [facility] [id number] [place] [address] Feb, Sciatica M54.30 [facility] [address] [address] 15 Jan, 2017 Sciatica M54.30 [place] [address] [address] 14 Jan, 2017 Sciatica M54.30 [place] [id number] [place] [address] 19 Dec, 2016 Sciatica M54.30 [place] [id number] [place] [address] 18 Dec, 2016 Sciatica M54.30 [facility] [id number] [place] [address] 29 Nov, 2016 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 E78.2 ; Chronic seasonal allergic rhinitis due to other allergen J30.2 and Family history of early CAD Z82.49 [place] [id number] [place] [address] Nov, Sciatica M54.30 [facility] [id number] [place] [address] 18 Nov, 2016 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 E78.2 ; Chronic seasonal allergic rhinitis due to other allergen J30.2 ; Family history of early CAD Z82.49 ; Other chronic pain G89.29 and Pain in left shoulder M25.512 [place] [id number] [place] [address] 11 Nov, 2016 Acute pain of left shoulder M25.512 [place] [id number] [place] [address] Oct, Sciatica M54.30 [facility] [id number] [place] [address] Oct, [facility] [id number] [place] [address] Sep, Sciatica M54.30 [facility] [id number] [place] [address] Sep, Acute pain of left shoulder M25.512 [facility] [id number] [place] [address] Sep, Acute pain of left shoulder M25.512 [facility] [id number] [place] [address] Aug, Sciatica M54.30 [facility] [id number] [place] [address] Aug, Sciatica M54.30 ; Tobacco abuse Z72.0 and Tobacco abuse counseling Z71.6 [facility] [id number] [place] [address] Aug, Acute pain of left shoulder M25.512 [facility] [id number] [place] [address] Aug, Contusion of right shoulder, initial encounter S40.011A ; Acute pain of left shoulder M25.512 and Shortness of breath R06.02 [facility] [address], [place] [address] Aug, Lumbago with sciatica, right side M54.41 [facility] [id number] [place] [address] July, [facility] [id number] [place] [address] July, Lumbago with sciatica, right side M54.41 [facility] [id number] [place] [address] Jun, Lumbago with sciatica, right side M54.41 [facility] [address] [address] May, Lumbago with sciatica, right side M54.41 [facility] [address] [address] May, Herpes zoster without complication B02.9 [facility] [address] [address] May, Back pain M54.9 and Acute right-sided low back pain with right-sided sciatica M54.41 [facility] [address] [address] Apr, [facility] [address] [address] Apr, Lumbago with sciatica, right side M54.41 and Other chronic pain G89.29 [facility] [address] [address] Apr, [facility] [address] [address] Mar, [facility] [id number] [place] [address] Mar, [facility] [id number] [place] [address] Feb, [facility] [id number] [place] [address] Jan, Urinary frequency R35.0 [facility] [address] [address] Jan, [facility] [id number] [place] [address] Dec, [facility] [id number], [place] [address] Oct, [facility] [id number] [place] [address] Sep, [facility] [id number], [place] [address] Sep, Foreign body in left foot, initial encounter S90.852A [facility] [id number] [place] [address] Aug, [facility] [id number] [place] [address] July, Sciatica M54.30 [facility] [id number] [place] [address] Jun, [facility] [id number] [place] [address] May, Osteoarthritis M19.90 [facility] [id number] [place] [address] May, [facility] [id number] [place] [address] May, Pain in right hip M25.551 [facility] [address], [place] [address] May, Tinea corporis B35.4 [facility] [address], [place] [address] Apr, Pain in right hip M25.551 [facility] [id number] [place] [address] Mar, Pain in right hip M25.551 [facility] [address], [place] [address] Mar, [facility] [id number] [place] [address] Feb, Pain in right hip M25.551 [facility] [id number] [place] [address] Jan, Acute bronchitis, unspecified organism J20.9 and Cough R05 [facility] [address], [place] [address] Jan, Pain in right hip M25.551 [facility] [id number] [place] [address] Dec, Pain in right hip M25.551 [facility] [id number] [place] [address] Nov, Acute bronchitis 466.0 [facility] [id number] [place] [address] Nov, [facility] [id number] [place] [address] Oct, [facility] [id number] [place] [address] Sep, [facility] [id number] [place] [address] Aug, [facility] [address] [place] [address] July, [facility] [id number] [place] [address] 14 Jun, 2014 [facility] [id number] [place] [address] Jun, [facility] [id number] [place] [address] May, [facility] [id number] [address] May, [facility] [id number] [place] [address] Apr, [facility] [place] [facility] [address] [id number] [place] [address] Apr, 2014 [facility] [place] [facility] [address] [id number] [place] [address] Apr, 2014 [facility] [place] [facility] [address] [id number] [place] [address] Apr, 2014 [facility] [place] [facility] [address] [id number] [place] [address] Apr, 2014 [facility] [place] [facility] [address] [id number] [place] [address] Apr, [facility] [place] [facility] [address] [id number] [place] [address] Mar, [facility] [place] [facility] [address] [id number] [place] [address] Mar, [facility] [place] [facility] [address] [id number] [place] [address] Feb, [facility] [place] [facility] [address] [id number] [place] [address] Feb, [facility] [place] [facility] [address] [id number] [place] [address] Feb, [facility] [place] [facility] [address] [id number] [place] [address] Dec, [facility] [place] [facility] [address] [id number] [address] Dec, [facility] [place] [facility] [address] [id number] [place] [address] Nov, [facility] [place] [facility] [address] [id number] [place] [address] Nov, [facility] [place] [facility] [address] [id number] [place] [address] Nov, [facility] [place] [facility] [address] [id number] [place] [address] Nov, [facility] [place] [facility] [address] [id number] [place] [address] Sep, [facility] [place] [facility] [address] [id number] [place] [address] Sep, [facility] [place] [facility] [address] [id number] [place] [address] Sep, [facility] [place] [facility] [address] [id number] [place] [address] Sep, [facility] [place] [facility] [address] [id number] [place] [address] Aug, [facility] [place] [facility] [address] [id number] [place] [address] Aug, [facility] [place] [facility] [address] [id number] [place] [address] Aug, [facility] [place] [facility] [address] [id number] [place] [address] Aug, [facility] [place] [facility] [address] [id number] [place] [address] July, [facility] [place] [facility] [address] [id number] [place] [address] July, [facility] [place] [facility] [address] [id number] [place] [address] Jun, [facility] [place] [facility] [address] [id number] [place] [address] Jun, [facility] [place] [facility] [address] [id number] [place] [address] Jun, [facility] [place] [facility] [address] [id number] [place] [address] Jun, [facility] [place] [facility] [address] [id number] [place] [address] Jun, [facility] [place] [facility] [address] [id number] [place] [address] Jun, [facility] [place] [facility] [address] [id number] [place] [address] Jun, [facility] [place] [facility] [address] [id number] [place] [address] Jun, [facility] [place] [facility] [address] [id number] [place] [address] May, [facility] [place] [facility] [address] [id number] [place] [address] May, [facility] [place] [facility] [address] [id number] [place] [address] May, [facility] [place] [facility] [address] [id number] [place] [address] May, [facility] [place] [facility] [address] [id number] [place] [address] May, [facility] [place] [facility] [address] [id number] [place] [address] May, [facility] [place] [facility] [address] [id number] [place] [address] Apr, [facility] [place] [facility] [address] [id number] [place] [address] Apr, [facility] [place] [facility] [address] [id number] [place] [address] Apr, [facility] [place] [facility] [address] [id number] [place] [address] Apr, [facility] [place] [facility] [address] [id number] [place] [address] Mar, [facility] [place] [facility] [address] [id number] [place] [address] Mar, [facility] [place] [facility] [address] [id number] [address] Mar, [facility] [address] [id number] [place] [address] Mar, [facility] [address] [id number] [place] [address] Mar, [facility] [address] [id number] [place] [address] Mar, [facility] [address] [id number] [place] [address] Feb, [facility] [address] [id number] [place] [address] Feb, [facility] [address] [id number] [place] [address] Feb, [facility] [address] [id number] [place] [address] Feb, [facility] [address] [id number] [place] [address] Feb, [facility] [address] [id number] [place] [address] Feb, [facility] [address] [id number] [place] [address] Feb, [facility] [address] [id number], [place] [address] Feb, [facility] [place] [facility] [address] [id number], [place] [address] Feb, [facility] [place] [facility] [address] [id number], [place] [address] Feb, [facility] [place] [facility] [address] [id number], [place] [address] Feb, [facility] [place] [facility] [address] [id number] [place] [address] Feb, [facility] [place] [facility] [address] [id number] [place] [address] Jan, [facility] [place] [facility] [address] [id number] [place] [address] Jan, [facility] [place] [facility] [address] [id number] [place] [address] Jan, [facility] [place] [facility] [address] [id number] [place] [address] Jan, [facility] [place] [facility] [address] [id number] [place] [address] Jan, [facility] [place] [facility] [address] [id number] [place] [address] Jan, [facility] [place] [facility] [address] [id number] [place] [address] Jan, [facility] [place] [facility] [address] [id number] [place] [address] Jan, [facility] [place] [facility] [address] [id number] [place] [address] Jan, [facility] [place] [facility] [address] [id number] [place] [address] Jan, [facility] [place] [facility] [address] [id number] [place] [address] Dec, [facility] [place] [facility] [address] [id number] [place] [address] Dec, [facility] [place] [facility] [address] [id number] [place] [address] Nov, [facility] [place] [facility] [address] [id number] [place] [address] Nov, [facility] [place] [facility] [address] [id number] [place] [address] Nov, [facility] [place] [facility] [address] [id number] [place] [address] Nov, [facility] [place] [facility] [address] [id number] [place] [address] Nov, [facility] [place] [facility] [address] [id number] [place] [address] Oct, [facility] [place] [facility] [address] [id number] [place] [address] Oct, [facility] [facility] [address] [id number] [place] [address] Oct, [facility] [place] [facility] [address] [id number] [place] [address] Oct, [facility] [place] [facility] [address] [id number] [place] [address] Oct, [facility] [place] [facility] [address] [id number] [place] [address] Sep, [facility] [place] [facility] [address] [id number] [place] [address] Sep, [facility] [place] [facility] [address] [id number] [place] [address] Sep, [facility] [place] [facility] [address] [id number] [place] [address] Sep, [facility] [place] [facility] [address] [id number] [place] [address] Sep, [facility] [place] [facility] [address] [id number] [place] [address] Sep, [facility] [place] [facility] [address] [id number] [place] [address] Aug, [facility] [place] [facility] [address] [id number] [place] [address] Aug, [facility] [place] [facility] [address] [id number] [place] [address] July, [facility] [place] [facility] [address] [id number] [place] [address] July, [facility] [address] [id number] [place] [address] July, [facility] [place] [facility] [address] [id number] [place] [address] Jun, [facility] [place] [address] [id number] [place] [address] Jun, [facility] [place] [facility] [address] [id number] [place] [address] Jun, [facility] [place] [facility] [address] [id number] [place] [address] Jun, [facility] [place] [facility] [address] [id number] [place] [address] May, [facility] [address] [id number] [place] [address] May, [facility] [address] [id number] [place] [address] Apr, [facility] [address] [id number] [place] [address] Apr, [facility] [address] [facility] [id number] [place] [address] Apr, [facility] [facility] [address] [id number] [place] [address] Apr, [facility] [address] [facility] [id number] [place] [address] Apr, [facility] [address] [facility] [id number] [place] [address] Apr, [facility] [address] [id number] [place] [id number] Apr, [facility] [address] [id number] [place] [address] Apr, [facility] [place] [facility] [address] [id number] [place] [address] Mar, [facility] [place] [facility] [address] [id number] [place] [address] Mar, [facility] [address] [id number] [place] [address] Mar, [facility] [place] [facility] [address] [id number] [place] [address] Mar, [facility] [address] [id number] [place] [address] Jan, [facility] [address] [id number] [place] [address] Jan, [facility] [address] [id number] [place] [address] Jan, [facility] [address] [id number], [place] [address] Jan, [facility] [address] [id number] [place] [address] Jan, [facility] [facility] [address] [facility] [id number], [place] [address] Dec, [facility] [address] [id number], [place] [address] Dec, [facility] [address] [id number], [place] [address] Dec, [facility] [address] [id number], [place] [address] Dec, [facility] [address] [id number], [place] [address] Nov, [facility] [address] [facility] [id number], [place] [address] Oct, [facility] [address] [id number], [place] [address] Oct, [facility] [address] [id number] [place] [address] Oct, [facility] [address] [id number] [place] [address] Oct, [facility] [address] [id number] [place] [address] Oct, [facility] [address] [id number] [place] [address] Sep, [facility] [address] [id number] [place] [address] Sep, [facility] [address] [id number] [place] [address] Aug, [facility] [address] [id number] [place] [address] Aug, [facility] [address] [id number] [place] [address] Aug, [facility] [facility] [address] [id number] [place] [address] Aug, [facility] [address] [id number] [address] July, [facility] [address] [id number] [place] [address] Jun, [facility] [facility] [address] [id number] [place] [address] May, [facility] [address] [id number] [place] [address] May, [facility] [address] [id number] [place] [address] May, [facility] [address] [id number] [place] [address] Mar, [facility] [address] [facility] [id number], [place] [address] Feb, [facility] [address] [facility] [id number], [place] [address] Feb, [facility] [address] [facility] [id number], [place] [address] Jan, [facility] [address] [facility] [id number], [place] [address] Jan, [facility] [address] [facility] [id number], [place] [address] Jan, [facility] [address] [facility] [id number], [place] [address] Jan, [facility] [address] [facility] [id number], [place] [address] Jan, [facility] [id number], [place] [address] Dec, [facility] [address] [facility] [id number], [place] [address] Dec, [facility] [id number], [place] [address] Dec, [facility] [address] [id number], [place] [address] May, [facility] [address] [id number], [place] [address] 15 May, 2009 [facility] [address] [facility] [id number], [place] [address] 17 Apr, 2009 [facility] [address] [facility] [id number], [place] [address] Jan, [facility] [address] [facility] [id number], [place] [address] 11 Apr, 2008 IMMUNIZATIONS No Known Immunizations SOCIAL HISTORY Never Assessed REASON FOR VISIT EMR-[facility] [place] PLAN OF CARE VITAL [...] for cancer Hospitalization History surgeries Hospitalization History [facility] ER, heart- kidney- Stayed at [facility] ICU 12/2017 Hospitalization History [facility] ER 03/2018
--- OUTSIDE RECORDS SUMMARY | 2018-10-30 20:34 | XMS REPORT ---
Author Author CHRISTA GLORIA [facility] Address [address] [place] [address] Care Team Providers Care Floor Molder Name Role Phone CHRISTA GLORIA Unavailable PROBLEMS Type Condition ICD9-CM Code IWR41-MP Code Onset Dates Condition Status SNOMED Code Problem 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 E78.2 Active 810729418 Problem Anxiety F41.9 Active 09882546 Problem Other organ or system involvement in systemic lupus erythematosus M32.19 Active 45686855 Problem senior living 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 Z79.01 Active 735520577 Problem Chronic anticoagulation Z79.01 Active 719301866 Problem Episode of recurrent major depressive disorder, unspecified depression episode severity F33.9 Active 895121832 Problem Asymptomatic menopausal state Z78.0 Active 52702004 Problem Systemic lupus erythematosus, unspecified SLE type, unspecified organ involvement status M32.9 Active 11928898 Problem Right renal artery stenosis I70.1 Active [id number] Problem Seborrheic keratoses L82.1 Active 176195842 Problem Hepatitis C B19.20 Active 19412358 Problem Sciatica M54.30 Active 85367220 Problem HILARIO (obstructive sleep apnea) G47.33 Active 40897080 Problem Other chronic pain G89.29 Active 73758303 Problem Lumbago with sciatica, right side M54.41 Active 702972674 Problem 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 Active 381518951 Problem Acute right-sided low back pain with right-sided sciatica M54.41 Active 564444626 Problem Urinary frequency R35.0 Active 790067664 Problem Other chronic pain G89.29 Active 73559348 ALLERGIES No Information ENCOUNTERS Encounter Location Date Diagnosis [facility] [address] [facility] [id number] [address] Mar, [facility] [id number] [place] [address] Feb, Other chronic pain G89.29 [place] [id number] [place] [address] Jan, senior living 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 Z79.01 [place] [id number] [place] [address] Jan, Other chronic pain G89.29 ; Lumbago with sciatica, right side M54.41 ; Other chronic pain G89.29 ; Tobacco abuse Z72.0 ; Tobacco abuse counseling Z71.6 ; 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 E78.2 and senior living 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 Z79.01 [place] [address] [place] [id number] [place] [address] Jan, [place] [id number] [place] [address] Dec, [place] [address] [id number] [place] [address] Dec, [place] [address] [id number] [place] [address] Dec, [place] [address] [place] [id number] [place] [address] Dec, 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 E78.2 ; Other chronic [...] involvement in systemic lupus erythematosus M32.19 [facility] [address] [place], [place] [id number] Dec, Right renal artery stenosis I70.1 ; Other organ or system involvement in systemic lupus erythematosus M32.19 ; Hepatitis C B19.20 ; Tobacco abuse Z72.0 and Weakness R53.1 [facility] [address] [place], [place] [id number] Dec, [facility] [address] [id number] [address] Dec, [facility] [address] [id number], [place] [address] Dec, Other organ or system involvement in systemic lupus erythematosus M32.19 [email or web address] [address] [place], [place] [id number] Dec, Right renal artery stenosis I70.1 ; Injury of right kidney, sequela S37.001S ; Tobacco abuse Z72.0 ; Systemic lupus erythematosus, unspecified SLE type, unspecified organ involvement status M32.9 ; Hepatitis C B19.20 and Candidiasis of female genitalia B37.3 [facility] [address] [address] Dec, Other organ or system involvement in systemic lupus erythematosus M32.19 [facility] [address] [id number], [place] [address] Dec, Other organ or system involvement in systemic lupus erythematosus M32.19 [facility] [address] [id number] [address] Dec, [facility] [address] [id number], [place] [address] Nov, Other organ or system involvement in systemic lupus erythematosus M32.19 [facility] [address] [id number] [address] Oct, Other organ or system involvement in systemic lupus erythematosus M32.19 [facility] [address] [id number], [place] [address] Sep, Other organ or system involvement in systemic lupus erythematosus M32.19 [facility] [address] [id number], [place] [address] Aug, Anxiety F41.9 [facility] [address], [place] [address] Aug, Other organ or system involvement in systemic lupus erythematosus M32.19 [place] [id number] [place] [address] July, Medicare annual wellness visit, initial Z00.00 ; Anxiety F41.9 ; HILARIO (obstructive sleep apnea) G47.33 ; Hepatitis C B19.20 ; Other chronic pain G89.29 ; Asymptomatic menopausal state Z78.0 and Episode of recurrent major depressive disorder, unspecified depression episode severity F33.9 [place] [address] [address] [id number] [place] [address] July, Anxiety F41.9 [place] [address] [id number] [place] [address] July, Other organ or system involvement in systemic lupus erythematosus M32.19 [place] [address] [place] [id number] [place] [address] July, [place] [address] [address] [id number] [place] [address] Jun, Other organ or system involvement in systemic lupus erythematosus M32.19 ; BMI 40.0-44.9, adult Z68.41 ; Other chronic pain G89.29 and Controlled substance agreement signed Z79.899 [place] [address] [id number] [address] May, Sciatica M54.30 [place] [address] [address] [id number] [place] [address] Apr, Sciatica M54.30 [place] [address] [address] [id number] [place] [address] Mar, Sciatica M54.30 [place] [address] [place] [address] [id number] [place] [address] Feb, Sciatica M54.30 [place] [address] [id number] [place] [address] 15 Jan, 2017 Sciatica M54.30 [facility] [id number] [place] [address] 14 Jan, 2017 Sciatica M54.30 [facility] [id number] [place] [address] 19 Dec, 2016 Sciatica M54.30 [facility] [address] [address] 18 Dec, 2016 Sciatica M54.30 [facility] [id number] [place] [address] 29 Nov, 2016 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 E78.2 ; Chronic seasonal allergic rhinitis due to other allergen J30.2 and Family history of early CAD Z82.49 [place] [address] [id number] [place] [address] Nov, Sciatica M54.30 [facility] [id number] [place] [address] Nov, 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 E78.2 ; Chronic seasonal allergic rhinitis due to other allergen J30.2 ; Family history of early CAD Z82.49 ; Other chronic pain G89.29 and Pain in left shoulder M25.512 [place] [address] [place] [id number] [place] [address] Nov, Acute pain of left shoulder M25.512 [facility] [id number] [place] [address] Oct, Sciatica M54.30 [facility] [id number] [place] [address] Oct, [facility] [id number] [place] [address] Sep, Sciatica M54.30 [facility] [id number] [place] [address] Sep, Acute pain of left shoulder M25.512 [place] [id number] [place] [address] Sep, Acute pain of left shoulder M25.512 [place] [address] [id number] [place] [address] Aug, Sciatica M54.30 [place] [address] [place] [id number] [place] [address] Aug, Sciatica M54.30 ; Tobacco abuse Z72.0 and Tobacco abuse counseling Z71.6 [place] [address] [address] [id number] [place] [address] Aug, Acute pain of left shoulder M25.512 [facility] [place] [id number] [place] [address] Aug, Contusion of right shoulder, initial encounter S40.011A ; Acute pain of left shoulder M25.512 and Shortness of breath R06.02 [place] [address] [place] [id number] [place] [address] Aug, Lumbago with sciatica, right side M54.41 [place] [address] [place] [id number] [place] [address] July, [place] [address] [place] [id number] [place] [address] July, Lumbago with sciatica, right side M54.41 [place] [address] [place] [address] [id number] [place] [address] Jun, Lumbago with sciatica, right side M54.41 [place] [address] [place] [id number] [place] [address] May, Lumbago with sciatica, right side M54.41 [facility] [place] [id number] [place] [address] May, Herpes zoster without complication B02.9 [facility] [address] [id number] [place] [address] May, Back pain M54.9 and Acute right-sided low back pain with right-sided sciatica M54.41 [facility] [id number] [place] [address] Apr, [facility] [id number] [place] [address] Apr, Lumbago with sciatica, right side M54.41 and Other chronic pain G89.29 [facility] [address] [id number] [place] [address] Apr, [facility] [address] [address] Mar, [facility] [address] [id number] [place] [address] Mar, [facility] [address] [id number] [place] [address] Feb, [facility] [id number] [place] [address] Jan, Urinary frequency R35.0 [facility] [address] [place] [address] [id number] [place] [address] Jan, [facility] [address] [place] [address] [id number] [place] [address] Dec, [facility] [address] [id number] [place] [address] Oct, [facility] [address] [place] [address] [id number] [place] [address] Sep, [facility] [address] [address] [id number] [place] [address] Sep, Foreign body in left foot, initial encounter S90.852A [facility] [address] [address] Aug, [facility] [id number] [place] [address] July, Sciatica M54.30 [facility] [address] [place] [id number] [place] [address] Jun, [facility] [address] [place] [id number] [place] [address] May, Osteoarthritis M19.90 [facility] [address] [address] May, [facility] [address] [address] May, Pain in right hip M25.551 [facility] [id number] [place] [address] May, Tinea corporis B35.4 [place] [address] [address] Apr, Pain in right hip M25.551 [place] [address] [place] [id number] [place] [address] Mar, Pain in right hip M25.551 [place] [address] [place] [id number] [place] [address] Mar, [facility] [address] [address] [id number] [place] [address] Feb, Pain in right hip M25.551 [facility] [address] [place] [id number] [place] [address] Jan, Acute bronchitis, unspecified organism J20.9 and Cough R05 [facility] [address] [place] [id number] [place] [address] Jan, Pain in right hip M25.551 [facility] [address] [place] [id number] [place] [address] Dec, Pain in right hip M25.551 [facility] [address] [place] [address] Nov, Acute bronchitis 466.0 [facility] [address] [facility] [id number] [place] [address] Nov, [facility] [address] [place] [address] Oct, [facility] [address] [facility] [id number], [place] [address] Sep, [facility] [id number], [place] [address] Aug, [facility] [address], [place] [address] July, [facility] [address], [place] [address] Jun, [facility] [id number], [place] [address] Jun, [facility] [address], [place] [address] May, [facility] [address], [place] [address] May, [facility] [address], [place] [address] Apr, [facility] [address] [facility] [id number], [place] [address] Apr, [facility] [address] [id number], [place] [address] Apr, [facility] [place] [facility] [id number], [place] [address] Apr, [facility] [address], [place] [address] Apr, [facility] [place] [facility] [address] [id number] [place] [address] Apr, [facility] [place] [facility] [address] [id number] [place] [address] Mar, [facility] [place] [facility] [address] [id number] [place] [address] Mar, [facility] [place] [facility] [address] [id number] [place] [address] Feb, [facility] [place] [facility] [address] [id number] [place] [address] Feb, [facility] [place] [facility] [address] [id number] [place] [address] Feb, [facility] [place] [facility] [address] [id number] [place] [address] Dec, [facility] [place] [facility] [address] [id number] [place] [address] Dec, [facility] [place] [facility] [address] [id number] [place] [address] Nov, [facility] [place] [facility] [address] [id number] [place] [address] Nov, [facility] [place] [facility] [address] [id number] [place] [address] Nov, [facility] [place] [facility] [address] [id number], [place] [address] Nov, [facility] [place] [facility] [address] [id number] [place] [address] Sep, [facility] [place] [facility] [address] [id number] [place] [address] Sep, [facility] [place] [facility] [address] [facility] [id number], [place] [address] Sep, [facility] [place] [facility] [address] [id number], [place] [address] Sep, [facility] [place] [facility] [address] [id number] [place] [address] Aug, [facility] [place] [facility] [address] [id number] [place] [address] Aug, [facility] [place] [facility] [address] [id number] [place] [address] Aug, [facility] [place] [facility] [address] [id number] [place] [address] Aug, [facility] [place] [facility] [address] [id number] [place] [address] July, [facility] [place] [facility] [address] [id number] [place] [address] July, [facility] [place] [facility] [address] [id number] [place] [address] Jun, [facility] [place] [facility] [address] [id number] [place] [address] Jun, [facility] [place] [facility] [address] [id number] [place] [address] Jun, [facility] [place] [facility] [address] [id number] [place] [address] Jun, [facility] [place] [facility] [address] [id number] [place] [address] Jun, [facility] [place] [facility] [address] [id number] [place] [address] Jun, [facility] [place] [facility] [address] [id number] [place] [address] Jun, [facility] [place] [facility] [address] [id number] [place] [address] Jun, [facility] [place] [facility] [address] [id number] [place] [address] May, [facility] [place] [facility] [address] [id number] [place] [address] May, [facility] [place] [facility] [address] [id number] [place] [address] May, [facility] [place] [facility] [address] [id number] [place] [address] May, [facility] [place] [facility] [address] [id number] [place] [address] May, [facility] [place] [facility] [address] [id number] [place] [address] May, [facility] [place] [facility] [address] [id number] [place] [address] Apr, [facility] [place] [facility] [address] [id number] [place] [address] Apr, [facility] [place] [facility] [address] [id number] [place] [address] Apr, [facility] [place] [facility] [address] [id number] [place] [address] Apr, [facility] [place] [facility] [address] [id number] [place] [address] Mar, [facility] [place] [facility] [address] [id number] [place] [address] Mar, [facility] [place] [facility] [address] [id number] [place] [address] Mar, [facility] [place] [facility] [address] [id number] [place] [address] Mar, [facility] [place] [facility] [address] [id number] [place] [address] Mar, [facility] [place] [facility] [address] [id number] [place] [address] Mar, [facility] [place] [facility] [address] [id number] [place] [address] Feb, [facility] [place] [facility] [address] [id number] [place] [address] Feb, [facility] [place] [facility] [address] [id number] [place] [address] Feb, [facility] [place] [facility] [address] [id number] [place] [address] Feb, [facility] [place] [facility] [address] [id number] [place] [address] Feb, [facility] [place] [facility] [address] [id number] [place] [address] Feb, [facility] [place] [facility] [address] [id number] [place] [address] Feb, [facility] [place] [facility] [address] [id number] [place] [address] Feb, [facility] [place] [facility] [address] [id number] [place] [address] Feb, [facility] [place] [facility] [address] [id number] [place] [address] Feb, [facility] [place] [facility] [address] [id number] [place] [address] Feb, [facility] [place] [facility] [address] [id number], [place] [address] Feb, [facility] [place] [facility] [address] [id number], [place] [address] Jan, [facility] [place] [facility] [address] [id number] [place] [address] Jan, [facility] [place] [facility] [address] [id number], [place] [address] Jan, [facility] [place] [facility] [address] [id number], [place] [address] Jan, [facility] [place] [facility] [address] [id number] [place] [address] Jan, [facility] [place] [facility] [address] [id number] [place] [address] Jan, [facility] [place] [facility] [address] [id number] [place] [address] Jan, [facility] [place] [facility] [address] [id number] [place] [address] Jan, [facility] [place] [facility] [address] [id number] [place] [address] Jan, [facility] [place] [facility] [address] [id number] [place] [address] Jan, [facility] [place] [facility] [address] [id number] [place] [address] Dec, [facility] [place] [facility] [address] [id number] [place] [address] Dec, [facility] [place] [facility] [address] [id number] [place] [address] Nov, [facility] [place] [facility] [address] [id number] [place] [address] Nov, [facility] [address] [id number] [place] [address] Nov, [facility] [place] [facility] [address] [id number] [place] [address] 05 Nov, 2012 [facility] [place] [facility] [address] [id number] [place] [address] Nov, [facility] [place] [facility] [address] [id number] [place] [address] Oct, [facility] [place] [facility] [address] [id number] [place] [address] Oct, [facility] [place] [facility] [address] [id number] [place] [address] Oct, [facility] [place] [facility] [address] [id number] [place] [address] Oct, [facility] [place] [facility] [address] [id number] [place] [address] Oct, [facility] [place] [facility] [address] [id number] [place] [address] Sep, [facility] [place] [facility] [address] [id number] [place] [address] Sep, [facility] [place] [facility] [address] [id number] [place] [address] Sep, [facility] [place] [facility] [address] [id number] [place] [address] Sep, [facility] [place] [facility] [address] [id number] [place] [address] Sep, [facility] [place] [facility] [address] [id number] [place] [address] Sep, [facility] [place] [facility] [address] [id number] [place] [address] Aug, [facility] [place] [facility] [address] [id number] [place] [address] Aug, [facility] [place] [facility] [address] [id number] [place] [address] July, [facility] [place] [facility] [address] [id number] [place] [address] July, [facility] [place] [facility] [address] [id number] [place] [address] July, [facility] [place] [facility] [address] [id number] [place] [address] Jun, [facility] [place] [facility] [address] [id number] [place] [address] Jun, [facility] [place] [facility] [address] [id number], [place] [address] Jun, [facility] [place] [facility] [address] [id number] [place] [address] Jun, [facility] [place] [facility] [address] [id number] [place] [address] May, [facility] [place] [facility] [address] [id number] [place] [address] May, [facility] [place] [facility] [address] [id number] [place] [address] Apr, [facility] [place] [facility] [address] [id number] [place] [address] Apr, [facility] [place] [facility] [address] [id number] [place] [address] Apr, [facility] [place] [facility] [address] [id number] [place] [address] Apr, [facility] [place] [facility] [address] [id number] [place] [address] Apr, [facility] [place] [facility] [address] [id number] [place] [address] Apr, [facility] [place] [facility] [address] [facility] [id number] [id number] Apr, [facility] [place] [facility] [address] [id number] [place] [address] Apr, [facility] [place] [facility] [address] [id number] [place] [address] Mar, [facility] [place] [facility] [address] [id number] [place] [address] Mar, [facility] [place] [facility] [address] [id number] [place] [address] Mar, [facility] [place] [facility] [address] [id number] [place] [address] Mar, [facility] [place] [facility] [address] [id number] [place] [address] Jan, [facility] [place] [facility] [address] [id number] [place] [address] Jan, [facility] [place] [facility] [address] [id number] [place] [address] Jan, [facility] [place] [facility] [address] [id number] [place] [address] Jan, [facility] [place] [facility] [address] [id number] [place] [address] Jan, [facility] [place] [facility] [address] [id number] [place] [address] Dec, [facility] [place] [facility] [address] [id number] [place] [address] Dec, [facility] [place] [facility] [address] [id number] [place] [address] Dec, [facility] [place] [facility] [address] [id number] [place] [address] Dec, [facility] [place] [facility] [address] [id number] [place] [address] Nov, [facility] [place] [facility] [address] [id number] [place] [address] Oct, [facility] [place] [facility] [address] [id number], [place] [address] Oct, [facility] [place] [facility] [address] [id number] [place] [address] Oct, [facility] [place] [facility] [address] [id number] [place] [address] Oct, [facility] [place] [facility] [address] [id number] [place] [address] Oct, [facility] [place] [facility] [address] [id number], [place] [address] 31 Sep, 2011 [facility] [place] [facility] [address] [id number] [place] [address] 30 Sep, 2011 [facility] [place] [facility] [address] [id number] [place] [address] Aug, [facility] [place] [facility] [address] [id number] [place] [address] Aug, [facility] [place] [facility] [address] [id number] [place] [address] Aug, [facility] [place] [facility] [address] [id number] [place] [address] Aug, [facility] [place] [facility] [address] [id number] [place] [address] July, [facility] [place] [facility] [address] [id number] [place] [address] Jun, [facility] [place] [facility] [address] [id number] [place] [address] May, [facility] [place] [facility] [address] [id number] [place] [address] May, [facility] [place] [facility] [address] [id number] [place] [address] May, [facility] [place] [facility] [address] [id number] [place] [address] Mar, [facility] [place] [facility] [address] [id number] [place] [address] Feb, [facility] [place] [facility] [address] [id number] [place] [address] Feb, [facility] [place] [facility] [address] [id number] [place] [address] Jan, [facility] [place] [facility] [address] [id number] [place] [address] Jan, [facility] [place] [facility] [id number], [place] [address] Jan, [facility] [id number], [place] [address] Jan, [facility] [id number], [place] [address] Jan, [facility] [id number], [place] [address] Dec, [facility] [id number], [place] [address] Dec, [facility] [id number] [place] [address] Dec, [facility] [id number], [place] [address] May, [facility] [id number] [place] [address] May, [facility] [id number], [place] [address] Apr, [facility] [id number], [place] [address] Jan, [facility] [address] [id number], [place] [address] Apr, IMMUNIZATIONS No Known Immunizations SOCIAL HISTORY Never Assessed REASON FOR VISIT Controlled Med Refill PLAN OF CARE VITAL SIGNS MEDICATIONS Medication Instructions Dosage Frequency Start Date End Date Duration Status [place] 5-325 MG Orally 3 times a day 1 tablet 8h Feb, Active RESULTS No Results PROCEDURES No Known [...] for cancer Hospitalization History surgeries Hospitalization History [facility] ER, heart- kidney- Stayed at [facility] ICU 12/2017
--- OUTSIDE RECORDS SUMMARY | 2018-10-30 20:34 | XMS REPORT ---
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 Active 239358528 Problem Lumbago with sciatica, right side M54.41 Active 564881407 Problem Other chronic pain G89.29 Active 74780901 Problem Other chronic pain G89.29 Active 67090651 Problem Acute right-sided low back pain with right-sided sciatica M54.41 Active 871861958 Problem Anxiety F41.9 Active 08879413 Problem Asymptomatic menopausal state Z78.0 Active 69744000 Problem Episode of recurrent major depressive disorder, unspecified depression episode severity F33.9 Active 046081829 Problem Sialoadenitis, unspecified K11.20 Active 00190622 Problem Other organ or system involvement in systemic lupus erythematosus M32.19 Active 51869969 Problem Sciatica M54.30 Active 79633617 Problem 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 14167482 Problem 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 E78.2 Active 579867933 Problem HILARIO (obstructive sleep apnea) G47.33 Active 97673246 Problem Right renal artery stenosis I70.1 Active [id number] Problem Systemic lupus erythematosus, unspecified SLE type, unspecified organ involvement status M32.9 Active 77347313 Problem Chronic anticoagulation Z79.01 Active 038664980 Problem half-way 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 Z79.01 Active 120151548 ALLERGIES No Information ENCOUNTERS Encounter Location Date Diagnosis [facility] [address] [facility] [id number] [place] [address] May, [facility] [id number] [place] [address] May, Non-recurrent acute suppurative otitis media of right ear without spontaneous rupture of tympanic membrane H66.001 and Chronic anticoagulation Z79.01 [facility] [id number] [place] [address] May, Other chronic pain G89.29 [facility] [id number] [place] [address] Apr, Skin tear of right forearm without complication, initial encounter S51.811A ; Skin tear of left forearm without complication, initial encounter S51.812A and Encounter for immunization Z23 [facility] [id number] [place] [address] Apr, [facility] [id number] [place] [address] Apr, Diarrhea, unspecified R19.7 ; Nausea with vomiting, unspecified R11.2 and 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 [facility] [id number] [place] [address] Apr, Other chronic pain G89.29 [facility] [id number] [place] [address] Mar, Other chronic pain G89.29 [facility] [id number] [place] [address] Mar, Other chronic pain G89.29 [facility] [id number] [place] [address] Mar, [facility] [id number] [place] [address] Mar, Other organ or system involvement in systemic lupus erythematosus M32.19 [facility] [id number] [place] [address] 02 Raymond, 2019 Non-recurrent acute suppurative otitis media of right ear without spontaneous rupture of tympanic membrane H66.001 and Chronic anticoagulation Z79.01 [facility] [id number] [place] [address] Feb, Sialoadenitis, unspecified K11.20 [facility] [id number] [place] [address] Feb, Other chronic pain G89.29 [facility] [id number] [place] [address] Jan, half-way 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 Z79.01 [facility] [id number] [place] [address] Jan, Other chronic pain G89.29 ; Lumbago with sciatica, right side M54.41 ; Other chronic pain G89.29 ; Tobacco abuse Z72.0 ; Tobacco abuse counseling Z71.6 ; 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 E78.2 and half-way 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 Z79.01 [facility] [id number] [place] [address] Jan, [facility] [id number] [place] [address] Dec, [facility] [id number] [place] [address] Dec, [facility] [id number] [place] [address] Dec, [facility] [id number] [place] [address] Dec, 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 E78.2 ; Other chronic [...] in systemic lupus erythematosus M32.19 [facility] [address] [place] [id number] Dec, Right renal artery stenosis I70.1 ; Other organ or system involvement in systemic lupus erythematosus M32.19 ; Hepatitis C B19.20 ; Tobacco abuse Z72.0 and Weakness R53.1 [facility] [address] [place] [id number] Dec, [facility] [address], [place] [address] Dec, [facility] [id number] [place] [address] Dec, Other organ or system involvement in systemic lupus erythematosus M32.19 [facility] [address] [place] [id number] Dec, Right renal artery stenosis I70.1 ; Injury of right kidney, sequela S37.001S ; Tobacco abuse Z72.0 ; Systemic lupus erythematosus, unspecified SLE type, unspecified organ involvement status M32.9 ; Hepatitis C B19.20 and Candidiasis of female genitalia B37.3 [facility] [id number] [address] Dec, Other organ or system involvement in systemic lupus erythematosus M32.19 [facility] [id number] [address] Dec, Other organ or system involvement in systemic lupus erythematosus M32.19 [facility] [address] [address] Dec, [facility] [id number] [place] [address] Nov, Other organ or system involvement in systemic lupus erythematosus M32.19 [facility] [id number], [place] [address] Oct, Other organ or system involvement in systemic lupus erythematosus M32.19 [facility] [address], [place] [address] Sep, Other organ or system involvement in systemic lupus erythematosus M32.19 [facility] [id number] [place] [address] Aug, Anxiety F41.9 [facility] [address] [address] Aug, Other organ or system involvement in systemic lupus erythematosus M32.19 [facility] [address], [place] [address] July, Medicare annual wellness visit, initial Z00.00 ; Anxiety F41.9 ; HILARIO (obstructive sleep apnea) G47.33 ; Hepatitis C B19.20 ; Other chronic pain G89.29 ; Asymptomatic menopausal state Z78.0 and Episode of recurrent major depressive disorder, unspecified depression episode severity F33.9 [facility] [id number] [place] [address] July, Anxiety F41.9 [facility] [id number] [place] [address] July, Other organ or system involvement in systemic lupus erythematosus M32.19 [facility] [address], [place] [address] July, [facility] [id number] [place] [address] Jun, Other organ or system involvement in systemic lupus erythematosus M32.19 ; BMI 40.0-44.9, adult Z68.41 ; Other chronic pain G89.29 and Controlled substance agreement signed Z79.899 [facility] [id number] [place] [address] May, Sciatica M54.30 [facility] [address], [place] [address] Apr, Sciatica M54.30 [facility] [id number] [place] [address] 10 Mar, 2017 Sciatica M54.30 [facility] [address] [address] 13 Feb, 2017 Sciatica M54.30 [facility] [id number] [place] [address] 15 Jan, 2017 Sciatica M54.30 [facility] [address] [address] 14 Jan, 2017 Sciatica M54.30 [facility] [address] [address] Dec, Sciatica M54.30 [facility] [id number] [place] [address] 18 Dec, 2016 Sciatica M54.30 [facility] [address] [address] 29 Nov, 2016 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 E78.2 ; Chronic seasonal allergic rhinitis due to other allergen J30.2 and Family history of early CAD Z82.49 [facility] [id number] [place] [address] Nov, Sciatica M54.30 [facility] [id number] [place] [address] 18 Nov, 2016 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 E78.2 ; Chronic seasonal allergic rhinitis due to other allergen J30.2 ; Family history of early CAD Z82.49 ; Other chronic pain G89.29 and Pain in left shoulder M25.512 [facility] [id number] [place] [address] 11 Nov, 2016 Acute pain of left shoulder M25.512 [facility] [id number] [place] [address] Oct, Sciatica M54.30 [facility] [id number] [place] [address] Oct, [facility] [id number] [place] [address] Sep, Sciatica M54.30 [facility] [id number] [place] [address] Sep, Acute pain of left shoulder M25.512 [facility] [id number] [place] [address] Sep, Acute pain of left shoulder M25.512 [facility] [id number] [place] [address] Aug, Sciatica M54.30 [facility] [id number] [place] [address] Aug, Sciatica M54.30 ; Tobacco abuse Z72.0 and Tobacco abuse counseling Z71.6 [facility] [id number] [place] [address] Aug, Acute pain of left shoulder M25.512 [facility] [id number] [place] [address] Aug, Contusion of right shoulder, initial encounter S40.011A ; Acute pain of left shoulder M25.512 and Shortness of breath R06.02 [facility] [id number] [place] [address] Aug, Lumbago with sciatica, right side M54.41 [facility] [id number] [place] [address] July, [facility] [id number] [place] [address] July, Lumbago with sciatica, right side M54.41 [facility] [id number] [place] [address] Jun, Lumbago with sciatica, right side M54.41 [facility] [id number] [place] [address] May, Lumbago with sciatica, right side M54.41 [facility] [id number] [place] [address] May, Herpes zoster without complication B02.9 [facility] [id number] [place] [address] May, Back pain M54.9 and Acute right-sided low back pain with right-sided sciatica M54.41 [facility] [id number] [place] [address] Apr, [facility] [address] [address] Apr, Lumbago with sciatica, right side M54.41 and Other chronic pain G89.29 [facility] [address] [address] Apr, [facility] [id number] [place] [address] Mar, [facility] [address] [address] Mar, [facility] [id number] [place] [address] Feb, [facility] [id number] [place] [address] Jan, Urinary frequency R35.0 [facility] [id number] [place] [address] Jan, [facility] [address] [address] Dec, [facility] [id number] [place] [address] Oct, [facility] [address] [place] [address] Sep, [facility] [id number] [place] [address] Sep, Foreign body in left foot, initial encounter S90.852A [facility] [id number] [place] [address] Aug, [facility] [address] [address] July, Sciatica M54.30 [facility] [id number] [place] [address] Jun, [facility] [id number] [place] [address] May, Osteoarthritis M19.90 [facility] [id number] [place] [address] May, [facility] [id number] [place] [address] May, Pain in right hip M25.551 [facility] [id number] [place] [address] May, Tinea corporis B35.4 [facility] [address] [place] [address] Apr, Pain in right hip M25.551 [facility] [id number] [place] [address] Mar, Pain in right hip M25.551 [facility] [id number] [place] [address] Mar, [facility] [id number] [place] [address] Feb, Pain in right hip M25.551 [facility] [id number] [place] [address] Jan, Acute bronchitis, unspecified organism J20.9 and Cough R05 [facility] [address], [place] [address] Jan, Pain in right hip M25.551 [facility] [id number] [address] Dec, Pain in right hip M25.551 [facility] [id number] [place] [address] Nov, Acute bronchitis 466.0 [facility] [address] [place] [address], [place] [address] Nov, [facility] [id number] [place] [address] Oct, [facility] [address] [place] [address] Sep, [facility] [address] [place] [address] Aug, [facility] [address] [place] [address] July, [facility] [address], [place] [address] Jun, [facility] [address], [place] [address] Jun, [facility] [address], [place] [address] May, [facility] [address], [place] [address] May, [facility] [address], [place] [address] Apr, [facility] [address], [place] [address] Apr, [facility] [id number] [place] [address] 11 Apr, 2014 [facility] [place] [facility] [address] [id number] [place] [address] Apr, 2014 [facility] [place] [facility] [address] [id number] [place] [address] 06 Apr, 2014 [facility] [place] [facility] [address] [id number] [place] [address] Apr, 2014 [facility] [place] [facility] [address] [id number] [place] [address] Mar, [facility] [place] [facility] [address] [id number] [place] [address] Mar, [facility] [place] [facility] [address] [id number] [place] [address] Feb, [facility] [place] [facility] [address] [id number] [place] [address] Feb, [facility] [place] [facility] [address] [id number] [place] [address] Feb, [facility] [place] [facility] [address] [id number] [place] [address] Dec, [facility] [place] [facility] [address] [id number] [place] [address] Dec, [facility] [place] [facility] [address] [id number] [place] [address] Nov, [facility] [place] [facility] [address] [id number] [place] [address] Nov, [facility] [place] [facility] [address] [id number] [place] [address] Nov, [facility] [place] [facility] [address] [id number] [place] [address] Nov, [facility] [place] [facility] [address] [id number] [place] [address] Sep, [facility] [place] [facility] [address] [id number] [place] [address] Sep, [facility] [place] [facility] [address] [id number] [place] [address] Sep, [facility] [place] [facility] [address] [id number] [place] [address] Sep, [facility] [place] [facility] [address] [id number] [place] [address] Aug, [facility] [place] [facility] [address] [id number] [place] [address] Aug, [facility] [place] [facility] [address] [id number] [place] [address] Aug, [facility] [place] [facility] [address] [id number] [place] [address] Aug, [facility] [place] [facility] [address] [id number] [place] [address] July, [facility] [place] [facility] [address] [id number] [place] [address] July, [facility] [place] [facility] [address] [id number] [place] [address] Jun, [facility] [place] [facility] [address] [id number] [place] [address] Jun, [facility] [place] [facility] [address] [id number] [place] [address] Jun, [facility] [place] [facility] [address] [id number] [place] [address] Jun, [facility] [place] [facility] [address] [id number] [place] [address] Jun, [facility] [place] [facility] [address] [id number] [place] [address] Jun, [facility] [place] [facility] [address] [id number] [place] [address] Jun, [facility] [place] [facility] [address] [id number] [place] [address] Jun, [facility] [place] [facility] [address] [id number] [place] [address] May, [facility] [place] [facility] [address] [id number] [place] [address] May, [facility] [place] [facility] [address] [id number] [place] [address] May, [facility] [place] [facility] [address] [id number] [place] [address] May, [facility] [place] [facility] [address] [id number] [place] [address] May, [facility] [place] [facility] [address] [id number] [place] [address] May, [facility] [place] [facility] [address] [id number] [place] [address] Apr, [facility] [place] [facility] [address] [id number] [place] [address] Apr, [facility] [place] [facility] [address] [id number] [place] [address] Apr, [facility] [place] [facility] [address] [id number] [place] [address] Apr, [facility] [place] [facility] [address] [id number] [place] [address] Mar, [facility] [place] [facility] [address] [id number] [place] [address] Mar, [facility] [place] [facility] [address] [id number] [place] [address] Mar, [facility] [place] [facility] [address] [id number] [place] [address] Mar, [facility] [address] [id number] [place] [address] Mar, [facility] [place] [facility] [address] [id number] [place] [address] Mar, [facility] [address] [id number] [place] [address] Feb, [facility] [place] [facility] [address] [id number] [place] [address] Feb, [facility] [address] [id number] [place] [address] Feb, [facility] [place] [facility] [address] [id number] [place] [address] Feb, [facility] [place] [facility] [address] [id number] [place] [address] Feb, [facility] [place] [facility] [address] [id number], [place] [address] Feb, [facility] [place] [facility] [address] [id number] [place] [address] Feb, [facility] [place] [facility] [address] [id number], [place] [address] Feb, [facility] [place] [facility] [address] [id number], [place] [address] Feb, [facility] [place] [facility] [address] [id number], [place] [address] Feb, [facility] [place] [facility] [address] [id number], [place] [address] Feb, [facility] [place] [facility] [address] [id number], [place] [address] Feb, [facility] [place] [facility] [address] [id number], [place] [address] Jan, [facility] [place] [facility] [address] [id number], [place] [address] Jan, [facility] [place] [facility] [address] [id number] [place] [address] Jan, [facility] [place] [facility] [address] [id number], [place] [address] Jan, [facility] [place] [facility] [address] [facility] [id number] [place] [address] Jan, [facility] [place] [facility] [address] [id number], [place] [address] Jan, [facility] [place] [facility] [address] [facility] [id number] [place] [address] Jan, [facility] [place] [facility] [address] [facility] [id number], [place] [address] Jan, [facility] [place] [facility] [address] [id number], [place] [address] Jan, [facility] [place] [facility] [address] [id number], [place] [address] Jan, [facility] [place] [facility] [address] [id number], [place] [address] Dec, [facility] [place] [facility] [address] [facility] [id number], [place] [address] Dec, [facility] [place] [facility] [address] [id number], [place] [address] Nov, 2012 [facility] [place] [facility] [address] [id number], [place] [address] 25 Nov, 2012 [facility] [place] [facility] [address] [id number], [place] [address] 09 Nov, 2012 [facility] [place] [facility] [address] [facility] [id number], [place] [address] 05 Nov, 2012 [facility] [place] [facility] [address] [facility] [id number], [place] [address] 03 Nov, 2012 [facility] [place] [facility] [address] [id number] [place] [address] Oct, [facility] [place] [facility] [address] [id number] [place] [address] Oct, [facility] [place] [facility] [address] [id number] [place] [address] Oct, [facility] [place] [facility] [address] [id number] [place] [address] Oct, [facility] [place] [facility] [address] [id number] [place] [address] Oct, [facility] [place] [facility] [address] [id number] [place] [address] Sep, [facility] [place] [facility] [address] [id number] [place] [address] Sep, [facility] [place] [facility] [address] [id number] [place] [address] Sep, [facility] [place] [facility] [address] [id number] [place] [address] Sep, [facility] [place] [facility] [address] [id number] [place] [address] Sep, [facility] [place] [facility] [address] [id number] [place] [address] Sep, [facility] [place] [facility] [address] [id number] [place] [address] Aug, [facility] [place] [facility] [address] [id number] [place] [address] Aug, [facility] [place] [facility] [address] [id number] [place] [address] July, [facility] [place] [facility] [address] [id number] [place] [address] July, [facility] [place] [facility] [address] [id number] [place] [address] July, [facility] [place] [facility] [address] [id number] [place] [address] Jun, [facility] [place] [facility] [address] [id number] [place] [address] Jun, [facility] [place] [facility] [address] [facility] [id number] [place] [address] Jun, [facility] [place] [facility] [address] [id number] [place] [address] Jun, [facility] [place] [facility] [address] [id number] [place] [address] May, [facility] [place] [facility] [address] [id number] [place] [address] May, [facility] [place] [facility] [address] [id number] [place] [address] Apr, [facility] [place] [facility] [address] [id number] [place] [address] Apr, [facility] [place] [facility] [address] [id number] [place] [address] Apr, [facility] [place] [facility] [address] [id number] [place] [address] Apr, [facility] [place] [facility] [address] [id number] [place] [address] Apr, [facility] [place] [facility] [address] [id number] [place] [address] Apr, [facility] [place] [facility] [address] [id number] [place] [id number] Apr, [facility] [place] [facility] [address] [facility] [id number] [place] [address] Apr, [facility] [place] [facility] [address] [facility] [id number] [place] [address] Mar, [facility] [place] [facility] [address] [id number] [place] [address] Mar, [facility] [place] [facility] [address] [id number] [place] [address] Mar, [facility] [place] [facility] [address] [id number] [place] [address] Mar, [facility] [place] [facility] [address] [id number] [place] [address] Jan, [facility] [place] [facility] [address] [id number] [place] [address] Jan, [facility] [place] [facility] [address] [id number] [place] [address] Jan, [facility] [place] [facility] [address] [id number] [place] [address] Jan, [facility] [place] [facility] [address] [id number] [place] [address] Jan, [facility] [place] [facility] [address] [id number] [place] [address] Dec, [facility] [place] [facility] [address] [id number] [place] [address] Dec, [facility] [place] [facility] [address] [id number] [place] [address] Dec, [facility] [place] [facility] [address] [id number] [place] [address] Dec, [facility] [place] [facility] [address] [id number] [place] [address] Nov, [facility] [place] [facility] [address] [id number] [place] [address] Oct, [facility] [place] [facility] [address] [id number] [place] [address] Oct, [facility] [place] [facility] [address] [id number] [place] [address] Oct, [facility] [place] [facility] [address] [id number] [place] [address] Oct, [facility] [place] [facility] [address] [id number] [place] [address] Oct, [facility] [place] [facility] [address] [id number] [place] [address] Sep, [facility] [place] [facility] [address] [id number] [place] [address] Sep, [facility] [place] [facility] [address] [id number] [place] [address] Aug, [facility] [place] [facility] [address] [id number] [place] [address] Aug, [facility] [place] [facility] [address] [id number] [place] [address] Aug, [facility] [place] [facility] [address] [id number] [place] [address] Aug, [facility] [place] [facility] [address] [id number] [place] [address] July, [facility] [place] [facility] [address] [id number] [place] [address] Jun, [facility] [place] [facility] [address] [id number] [place] [address] May, [facility] [place] [facility] [address] [id number] [place] [address] May, [facility] [place] [facility] [address] [id number] [place] [address] May, [facility] [place] [facility] [address] [id number] [place] [address] Mar, [facility] [place] [facility] [address] [id number] [place] [address] Feb, [facility] [place] [facility] [id number], [place] [address] Feb, [facility] [id number], [place] [address] Jan, [facility] [id number], [place] [address] Jan, [facility] [id number], [place] [address] Jan, [facility] [id number], [place] [address] Jan, [facility] [id number] [place] [address] Jan, [facility] [id number], [place] [address] Dec, [facility] [id number], [place] [address] Dec, [facility] [id number], [place] [address] Dec, [facility] [id number], [place] [address] May, [facility] [id number], [place] [address] May, [facility] [id number], [place] [address] Apr, [facility] [id number], [place] [address] Jan, [facility] [address] [id number], [place] [address] Apr, IMMUNIZATIONS No Known Immunizations SOCIAL HISTORY Never Assessed REASON FOR VISIT EMR-[facility] PLAN OF CARE VITAL SIGNS [...] for cancer Hospitalization History surgeries Hospitalization History [facility] ER, heart- kidney- Stayed at [facility] ICU 12/2017 Hospitalization History [facility] ER 03/2018
--- OUTSIDE RECORDS SUMMARY | 2018-10-30 20:35 | XMS REPORT ---
Author Author CHRISTA GLORIA Organization [facility] Address [address] [place] [address] Care Team Providers Care Signals Intelligence Analyst Name Role Phone CHRISTA GLORIA Unavailable PROBLEMS Type Condition ICD9-CM Code MSO00-QD Code Onset Dates Condition Status SNOMED Code Problem 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 E78.2 Active 691307419 Problem Anxiety F41.9 Active 79881421 Problem Other organ or system involvement in systemic lupus erythematosus M32.19 Active 79327348 Problem snf 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 Z79.01 Active 413720714 Problem Chronic anticoagulation Z79.01 Active 268496451 Problem Episode of recurrent major depressive disorder, unspecified depression episode severity F33.9 Active 185830416 Problem Asymptomatic menopausal state Z78.0 Active 63718774 Problem Systemic lupus erythematosus, unspecified SLE type, unspecified organ involvement status M32.9 Active 83085594 Problem Right renal artery stenosis I70.1 Active [id number] Problem Seborrheic keratoses L82.1 Active 256260085 Problem Hepatitis C B19.20 Active 44523808 Problem Sciatica M54.30 Active 61911387 Problem HILARIO (obstructive sleep apnea) G47.33 Active 76638821 Problem Other chronic pain G89.29 Active 86047616 Problem Lumbago with sciatica, right side M54.41 Active 534352387 Problem 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 Active 376284260 Problem Acute right-sided low back pain with right-sided sciatica M54.41 Active 120099572 Problem Urinary frequency R35.0 Active 390292477 Problem Other chronic pain G89.29 Active 75079736 ALLERGIES No Information ENCOUNTERS Encounter Location Date Diagnosis [facility] [address] [facility] [id number] [address] Jan, 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 [facility] [address] [address] Jan, Other chronic pain G89.29 ; Lumbago with sciatica, right side M54.41 ; Other chronic pain G89.29 ; Tobacco abuse Z72.0 ; Tobacco abuse counseling Z71.6 ; 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 E78.2 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 [place] [address] [address] Jan, [place] [address] [place] [id number] [place] [address] Dec, [place] [address] [place] [id number] [place] [address] Dec, [place] [address] [place] [id number] [place] [address] Dec, [place] [address] [place] [id number] [place] [address] Dec, 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 E78.2 ; Other chronic [...] involvement in systemic lupus erythematosus M32.19 [facility] [address] [id number] Dec, Right renal artery stenosis I70.1 ; Other organ or system involvement in systemic lupus erythematosus M32.19 ; Hepatitis C B19.20 ; Tobacco abuse Z72.0 and Weakness R53.1 [facility] [address] [id number] Dec, [place] [address] [address] Dec, [place] [address] [address] Dec, Other organ or system involvement in systemic lupus erythematosus M32.19 [facility] [address] [place] [id number] Dec, Right renal artery stenosis I70.1 ; Injury of right kidney, sequela S37.001S ; Tobacco abuse Z72.0 ; Systemic lupus erythematosus, unspecified SLE type, unspecified organ involvement status M32.9 ; Hepatitis C B19.20 and Candidiasis of female genitalia B37.3 [place] [address] [address] Dec, Other organ or system involvement in systemic lupus erythematosus M32.19 [place] [address] [address] Dec, Other organ or system involvement in systemic lupus erythematosus M32.19 [place] [address] [address] Dec, [place] [address] [address] Nov, Other organ or system involvement in systemic lupus erythematosus M32.19 [place] [address] [address] Oct, Other organ or system involvement in systemic lupus erythematosus M32.19 [place] [address] [address] Sep, Other organ or system involvement in systemic lupus erythematosus M32.19 [facility] [address] [place] [id number] [address] Aug, Anxiety F41.9 [facility] [address] [address] Aug, Other organ or system involvement in systemic lupus erythematosus M32.19 [facility] [address] [place] [id number] [address] 29 May, 2018 Medicare annual wellness visit, initial Z00.00 ; Anxiety F41.9 ; HILARIO (obstructive sleep apnea) G47.33 ; Hepatitis C B19.20 ; Other chronic pain G89.29 ; Asymptomatic menopausal state Z78.0 and Episode of recurrent major depressive disorder, unspecified depression episode severity F33.9 [facility] [address] [place] [id number] [place] [address] July, Anxiety F41.9 [facility] [address] [place] [id number] [place] [address] July, Other organ or system involvement in systemic lupus erythematosus M32.19 [place] [address] [place] [id number] [place] [address] July, [place] [address] [place] [id number] [place] [address] Jun, Other organ or system involvement in systemic lupus erythematosus M32.19 ; BMI 40.0-44.9, adult Z68.41 ; Other chronic pain G89.29 and Controlled substance agreement signed Z79.899 [place] [address] [place] [id number] [place] [address] May, Sciatica M54.30 [place] [address] [place] [id number] [place] [address] 03 Apr, 2017 Sciatica M54.30 [place] [address] [place] [id number] [place] [address] Mar, Sciatica M54.30 [place] [address] [place] [id number] [place] [address] 13 Feb, 2017 Sciatica M54.30 [place] [address] [address] 15 Jan, 2017 Sciatica M54.30 [place] [address] [place] [id number] [place] [address] 14 Jan, 2017 Sciatica M54.30 [place] [address] [place] [address] Dec, Sciatica M54.30 [place] [address] [address] Dec, Sciatica M54.30 [place] [address] [address] 29 Nov, 2016 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 E78.2 ; Chronic seasonal allergic rhinitis due to other allergen J30.2 and Family history of early CAD Z82.49 [place] [address] [address] Nov, Sciatica M54.30 [place] [address] [address] 18 Nov, 2016 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 E78.2 ; Chronic seasonal allergic rhinitis due to other allergen J30.2 ; Family history of early CAD Z82.49 ; Other chronic pain G89.29 and Pain in left shoulder M25.512 [place] [address] [address] Nov, Acute pain of left shoulder M25.512 [place] [address] [address] Oct, Sciatica M54.30 [place] [address] [address] Oct, [place] [address] [address] Sep, Sciatica M54.30 [place] [address] [place] [id number] [place] [address] Sep, Acute pain of left shoulder M25.512 [place] [address] [address] Sep, Acute pain of left shoulder M25.512 [place] [address] [address] Aug, Sciatica M54.30 [place] [address] [place] [id number] [place] [address] Aug, Sciatica M54.30 ; Tobacco abuse Z72.0 and Tobacco abuse counseling Z71.6 [place] [address] [place] [id number] [place] [address] Aug, Acute pain of left shoulder M25.512 [facility] [address] [address] Aug, Contusion of right shoulder, initial encounter S40.011A ; Acute pain of left shoulder M25.512 and Shortness of breath R06.02 [place] [address] [address] Aug, Lumbago with sciatica, right side M54.41 [place] [address] [address] July, [place] [address] [address] July, Lumbago with sciatica, right side M54.41 [place] [address] [address] Jun, Lumbago with sciatica, right side M54.41 [place] [address] [address] May, Lumbago with sciatica, right side M54.41 [facility] [place] [address] [address] May, Herpes zoster without complication B02.9 [facility] [address] [address] May, Back pain M54.9 and Acute right-sided low back pain with right-sided sciatica M54.41 [place] [address] [address] Apr, [facility] [address] [place] [id number] [place] [address] Apr, Lumbago with sciatica, right side M54.41 and Other chronic pain G89.29 [facility] [address] [place] [id number] [place] [address] Apr, [facility] [address] [address] Mar, [facility] [address] [address] Mar, [facility] [address] [address] Feb, [facility] [address] [address] Jan, Urinary frequency R35.0 [facility] [address] [address] Jan, [facility] [address] [place] [id number] [place] [address] Dec, [facility] [address] [address] Oct, [facility] [address] [place] [id number] [place] [address] Sep, [facility] [address] [place] [id number] [place] [address] Sep, Foreign body in left foot, initial encounter S90.852A [facility] [address] [address] Aug, [facility] [address] [place] [id number] [place] [address] July, Sciatica M54.30 [facility] [address] [address] Jun, [facility] [address] [place] [address] May, Osteoarthritis M19.90 [facility] [address] [place] [id number] [place] [address] May, [facility] [address] [place] [id number] [place] [address] May, Pain in right hip M25.551 [facility] [address] [place] [id number] [place] [address] May, Tinea corporis B35.4 [facility] [address] [place] [id number] [place] [address] Apr, Pain in right hip M25.551 [facility] [address] [place] [id number] [place] [address] Mar, Pain in right hip M25.551 [facility] [address] [place] [id number] [place] [address] Mar, [facility] [address] [place] [id number] [place] [address] Feb, Pain in right hip M25.551 [facility] [address] [place] [id number] [place] [address] Jan, Acute bronchitis, unspecified organism J20.9 and Cough R05 [facility] [address] [place] [address] Jan, Pain in right hip M25.551 [facility] [address] [place] [id number] [place] [address] Dec, Pain in right hip M25.551 [facility] [address] [place] [id number] [place] [address] Nov, Acute bronchitis 466.0 [facility] [address] [place] [id number] [place] [address] Nov, [facility] [place] [facility] [address] [id number] [place] [address] Oct, [facility] [place] [facility] [address] [id number] [place] [address] Sep, [facility] [place] [facility] [address] [facility] [id number] [place] [address] Aug, [facility] [place] [facility] [address] [id number] [place] [address] July, [facility] [place] [facility] [address] [id number] [place] [address] Jun, [facility] [place] [facility] [address] [facility] [id number] [place] [address] Jun, [facility] [place] [facility] [address] [facility] [id number] [place] [address] May, [facility] [place] [facility] [address] [id number] [address] May, [facility] [place] [facility] [address] [facility] [id number] [place] [address] Apr, [facility] [place] [facility] [address] [facility] [id number], [place] [address] Apr, [facility] [place] [facility] [address] [facility] [id number], [place] [address] Apr, [facility] [place] [facility] [address] [facility] [id number], [place] [address] Apr, [facility] [place] [facility] [address] [facility] [id number] [place] [address] Apr, [facility] [place] [facility] [address] [facility] [id number], [place] [address] Apr, [facility] [place] [facility] [address] [facility] [id number] [address] Mar, [facility] [place] [facility] [address] [id number] [place] [address] Mar, [facility] [place] [facility] [address] [id number] [place] [address] Feb, [facility] [place] [facility] [address] [id number] [place] [address] Feb, [facility] [place] [facility] [address] [id number] [place] [address] Feb, [facility] [place] [facility] [address] [id number] [place] [address] Dec, [facility] [place] [facility] [address] [id number] [place] [address] Dec, [facility] [place] [facility] [address] [id number] [place] [address] Nov, [facility] [place] [facility] [address] [id number] [place] [address] Nov, [facility] [place] [facility] [address] [id number] [place] [address] Nov, [facility] [place] [facility] [address] [id number] [place] [address] Nov, [facility] [place] [facility] [address] [id number] [place] [address] Sep, [facility] [place] [facility] [address] [id number] [place] [address] Sep, [facility] [place] [facility] [address] [id number] [place] [address] Sep, [facility] [place] [facility] [address] [id number] [place] [address] Sep, [facility] [place] [facility] [address] [id number] [place] [address] Aug, [facility] [place] [facility] [address] [id number] [place] [address] Aug, [facility] [place] [facility] [address] [id number] [place] [address] Aug, [facility] [place] [facility] [address] [id number] [place] [address] Aug, [facility] [place] [facility] [address] [id number] [place] [address] July, [facility] [place] [facility] [address] [id number] [place] [address] July, [facility] [place] [facility] [address] [id number] [place] [address] Jun, [facility] [place] [facility] [address] [id number] [place] [address] Jun, [facility] [place] [facility] [address] [id number] [place] [address] Jun, [facility] [place] [facility] [address] [id number] [place] [address] Jun, [facility] [place] [facility] [address] [id number] [place] [address] Jun, [facility] [place] [facility] [address] [id number] [place] [address] Jun, [facility] [place] [facility] [address] [id number] [place] [address] Jun, [facility] [place] [facility] [address] [id number], [place] [address] Jun, [facility] [place] [facility] [address] [id number] [place] [address] May, [facility] [place] [facility] [address] [id number] [place] [address] May, [facility] [place] [facility] [address] [id number] [place] [address] May, [facility] [place] [facility] [address] [id number] [place] [address] May, [facility] [place] [facility] [address] [id number] [place] [address] May, [facility] [place] [facility] [address] [id number] [place] [address] May, [facility] [place] [facility] [address] [id number] [place] [address] Apr, [facility] [place] [facility] [address] [id number] [place] [address] Apr, [facility] [place] [facility] [address] [id number] [place] [address] Apr, [facility] [place] [facility] [address] [id number] [place] [address] Apr, [facility] [place] [facility] [address] [id number] [place] [address] Mar, [facility] [place] [facility] [address] [id number] [place] [address] Mar, [facility] [place] [facility] [address] [id number] [place] [address] Mar, [facility] [place] [facility] [address] [id number] [place] [address] Mar, [facility] [place] [facility] [address] [id number] [place] [address] Mar, [facility] [place] [facility] [address] [id number] [place] [address] Mar, [facility] [place] [facility] [address] [id number] [place] [address] Feb, [facility] [place] [facility] [address] [id number] [place] [address] Feb, [facility] [place] [facility] [address] [id number] [place] [address] Feb, [facility] [address] [id number] [place] [address] Feb, [facility] [place] [facility] [address] [id number] [place] [address] Feb, [facility] [place] [facility] [address] [id number] [place] [address] Feb, [facility] [place] [facility] [address] [id number] [place] [address] Feb, [facility] [place] [facility] [address] [id number] [place] [address] Feb, [facility] [place] [facility] [address] [id number] [place] [address] Feb, [facility] [place] [facility] [address] [id number] [place] [address] Feb, [facility] [place] [facility] [address] [id number] [place] [address] Feb, [facility] [place] [facility] [address] [id number] [place] [address] Feb, [facility] [place] [facility] [address] [id number], [place] [address] Jan, [facility] [place] [facility] [address] [id number], [place] [address] Jan, [facility] [place] [facility] [address] [id number], [place] [address] Jan, [facility] [place] [facility] [address] [id number] [place] [address] Jan, [facility] [place] [facility] [address] [id number], [place] [address] Jan, [facility] [place] [facility] [address] [id number], [place] [address] Jan, [facility] [place] [facility] [address] [id number] [place] [address] Jan, [facility] [place] [facility] [address] [id number] [place] [address] Jan, [facility] [place] [facility] [address] [id number] [place] [address] Jan, [facility] [place] [facility] [address] [id number] [place] [address] Jan, [facility] [place] [facility] [address] [id number] [place] [address] Dec, [facility] [place] [facility] [address] [id number] [place] [address] Dec, [facility] [place] [facility] [address] [id number] [place] [address] Nov, [facility] [place] [facility] [address] [id number] [place] [address] 25 Nov, 2012 [facility] [place] [facility] [address] [id number] [place] [address] Nov, [facility] [place] [facility] [address] [id number] [place] [address] 05 Nov, 2012 [facility] [place] [facility] [address] [id number] [place] [address] Nov, [facility] [place] [facility] [address] [id number] [place] [address] Oct, [facility] [place] [facility] [address] [id number] [place] [address] Oct, [facility] [place] [facility] [address] [id number] [place] [address] Oct, [facility] [place] [facility] [address] [id number] [place] [address] Oct, [facility] [place] [facility] [address] [id number] [place] [address] Oct, [facility] [place] [facility] [address] [id number] [place] [address] Sep, [facility] [place] [facility] [address] [id number] [place] [address] Sep, [facility] [place] [facility] [address] [id number] [place] [address] Sep, [facility] [place] [facility] [address] [id number] [place] [address] Sep, [facility] [place] [facility] [address] [id number] [place] [address] Sep, [facility] [place] [facility] [address] [id number] [place] [address] Sep, [facility] [place] [facility] [address] [id number] [place] [address] Aug, [facility] [place] [facility] [address] [id number] [place] [address] Aug, [facility] [place] [facility] [address] [id number] [place] [address] July, [facility] [place] [facility] [address] [id number] [place] [address] July, [facility] [place] [facility] [address] [id number] [place] [address] July, [facility] [place] [facility] [address] [id number] [place] [address] Jun, [facility] [place] [facility] [address] [id number] [place] [address] 18 Jun, 2012 [facility] [place] [facility] [address] [id number] [place] [address] 16 Jun, 2012 [facility] [place] [facility] [address] [id number] [place] [address] Jun, [facility] [place] [facility] [address] [id number] [place] [address] May, [facility] [place] [facility] [address] [id number] [place] [address] May, [facility] [place] [facility] [address] [id number] [place] [address] Apr, [facility] [place] [facility] [address] [id number] [place] [address] Apr, [facility] [place] [facility] [address] [id number] [place] [address] Apr, [facility] [place] [facility] [address] [id number] [place] [address] Apr, [facility] [place] [facility] [address] [id number] [place] [address] Apr, [facility] [place] [facility] [address] [id number] [place] [address] Apr, [facility] [place] [facility] [address] [facility] [id number] [place] [id number] Apr, [facility] [place] [facility] [address] [id number] [place] [address] Apr, [facility] [place] [facility] [address] [facility] [id number] [place] [address] Mar, [facility] [place] [facility] [address] [id number] [place] [address] Mar, [facility] [place] [facility] [address] [id number] [place] [address] Mar, [facility] [place] [facility] [address] [id number] [place] [address] Mar, [facility] [place] [facility] [address] [id number] [place] [address] Jan, [facility] [place] [facility] [address] [facility] [id number] [place] [address] Jan, [facility] [place] [facility] [address] [id number] [place] [address] Jan, [facility] [place] [facility] [address] [id number] [place] [address] Jan, [facility] [place] [facility] [address] [id number] [place] [address] Jan, [facility] [place] [facility] [address] [id number] [place] [address] Dec, [facility] [place] [facility] [address] [id number] [place] [address] Dec, [facility] [place] [facility] [address] [id number] [place] [address] Dec, [facility] [place] [facility] [address] [id number] [place] [address] Dec, [facility] [place] [facility] [address] [id number] [place] [address] Nov, [facility] [place] [facility] [address] [id number] [place] [address] Oct, [facility] [place] [facility] [address] [id number] [place] [address] Oct, [facility] [place] [facility] [address] [id number] [place] [address] Oct, [facility] [place] [facility] [address] [id number] [place] [address] Oct, [facility] [place] [facility] [address] [id number] [place] [address] Oct, [facility] [place] [facility] [address] [id number] [place] [id number] Sep, [facility] [place] [facility] [address] [id number] [place] [address] Sep, [facility] [place] [facility] [address] [id number] [place] [address] Aug, [facility] [place] [facility] [address] [id number] [place] [address] Aug, [facility] [place] [facility] [address] [id number] [place] [address] Aug, [facility] [place] [facility] [address] [id number] [place] [address] Aug, [facility] [place] [facility] [address] [id number] [place] [address] July, [facility] [place] [facility] [address] [id number] [place] [address] Jun, [facility] [place] [facility] [address] [id number] [place] [address] May, [facility] [place] [facility] [address] [id number] [place] [address] May, [facility] [place] [facility] [address] [id number] [place] [address] May, [facility] [place] [facility] [address] [id number] [place] [address] Mar, [facility] [place] [facility] [address] [id number] [place] [address] Feb, [facility] [place] [facility] [address] [id number] [place] [address] Feb, [facility] [place] [facility] [address] [id number] [address] Jan, [facility] [place] [facility] [address] [id number] [place] [address] Jan, [facility] [place] [facility] [address] [id number] [place] [address] Jan, [facility] [place] [facility] [address] [id number] [place] [address] Jan, [facility] [place] [facility] [address] [id number] [address] 30 Jan, 2010 [facility] [id number] [address] Dec, [facility] [id number] [address] Dec, [facility] [id number] [address] Dec, [facility] [id number] [place] [address] 18 May, 2009 [facility] [id number] [place] [address] May, [facility] [id number] [address] 17 Apr, 2009 [facility] [id number] [address] Jan, [facility] [id number] [address] 11 Apr, 2008 IMMUNIZATIONS No Known Immunizations SOCIAL HISTORY Never Assessed REASON FOR VISIT Lab results PLAN OF CARE VITAL SIGNS MEDICATIONS Unknown [...] for cancer Hospitalization History surgeries Hospitalization History [facility] ER, heart- kidney- Stayed at [facility] ICU 12/2017
--- OUTSIDE RECORDS SUMMARY | 2018-10-30 20:36 | XMS REPORT ---
Author Author CHRISTA GLORIA [facility] Address [address] [place] [address] Care Team Providers Care Commercial Pilot Name Role Phone FAIZAN CHRISTA Unavailable PROBLEMS Type Condition ICD9-CM Code [id number]-EY Code Onset Dates Condition Status SNOMED Code Problem Other chronic pain G89.29 Active 00682501 Problem Other organ or system involvement in systemic lupus erythematosus M32.19 Active 07531525 Problem 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 E78.2 Active 783325025 Problem Chronic anticoagulation Z79.01 Active 569104189 Problem Systemic lupus erythematosus, unspecified SLE type, unspecified organ involvement status M32.9 Active 84577229 Problem Asymptomatic menopausal state Z78.0 Active 00922681 Problem Anxiety F41.9 Active 03956813 Problem Right renal artery stenosis I70.1 Active [id number] Problem Episode of recurrent major depressive disorder, unspecified depression episode severity F33.9 Active 560527990 Problem Seborrheic keratoses L82.1 Active 433976177 Problem Sciatica M54.30 Active 32426632 Problem HILARIO (obstructive sleep apnea) G47.33 Active 13108714 Problem Urinary frequency R35.0 Active 265184677 Problem Other chronic pain G89.29 Active 23439407 Problem Hepatitis C B19.20 Active 10876126 Problem Lumbago with sciatica, right side M54.41 Active 058726652 Problem 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 Active 271137183 Problem Acute right-sided low back pain with right-sided sciatica M54.41 Active 025126375 ALLERGIES Substance Reaction Event Type Date Status Cymbalta drowsiness Drug Allergy Jan, Active ENCOUNTERS Encounter Location Date Diagnosis [facility] [address] [facility] [id number] [address] Jan, Other chronic pain G89.29 ; Lumbago with sciatica, right side M54.41 ; Other chronic pain G89.29 ; Tobacco abuse Z72.0 ; Tobacco abuse counseling Z71.6 ; 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 E78.2 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 [place] [id number] [place] [address] Jan, [place] [address] [place] [id number] [place] [address] Dec, [place] [address] [place] [id number] [place] [address] Dec, [place] [address] [place] [id number] [place] [address] Dec, [place] [address] [place] [id number] [place] [address] Dec, 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 E78.2 ; Other chronic [...] involvement in systemic lupus erythematosus M32.19 [facility] [address] [place] [id number] Dec, Right renal artery stenosis I70.1 ; Other organ or system involvement in systemic lupus erythematosus M32.19 ; Hepatitis C B19.20 ; Tobacco abuse Z72.0 and Weakness R53.1 [facility] [address] [place] [id number] Dec, [place] [id number] [place] [address] Dec, [place] [id number] [place] [address] Dec, Other organ or system involvement in systemic lupus erythematosus M32.19 [facility] [address] [place] [id number] Dec, Right renal artery stenosis I70.1 ; Injury of right kidney, sequela S37.001S ; Tobacco abuse Z72.0 ; Systemic lupus erythematosus, unspecified SLE type, unspecified organ involvement status M32.9 ; Hepatitis C B19.20 and Candidiasis of female genitalia B37.3 [place] [address] [address] Dec, Other organ or system involvement in systemic lupus erythematosus M32.19 [place] [address] [id number] [address] Dec, Other organ or system involvement in systemic lupus erythematosus M32.19 [place] [address] [id number] [address] Dec, [place] [address] [id number] [address] Nov, Other organ or system involvement in systemic lupus erythematosus M32.19 [place] [address] [address] Oct, Other organ or system involvement in systemic lupus erythematosus M32.19 [place] [address] [address] Sep, Other organ or system involvement in systemic lupus erythematosus M32.19 [place] [address] [address] Aug, Anxiety F41.9 [place] [address] [address] Aug, Other organ or system involvement in systemic lupus erythematosus M32.19 [place] [address] [address] July, Medicare annual wellness visit, initial Z00.00 ; Anxiety F41.9 ; HILARIO (obstructive sleep apnea) G47.33 ; Hepatitis C B19.20 ; Other chronic pain G89.29 ; Asymptomatic menopausal state Z78.0 and Episode of recurrent major depressive disorder, unspecified depression episode severity F33.9 [facility] [address] [place] [id number] [place] [address] July, Anxiety F41.9 [facility] [address] [place] [id number] [place] [address] July, Other organ or system involvement in systemic lupus erythematosus M32.19 [facility] [address] [address] July, [facility] [address] [address] Jun, Other organ or system involvement in systemic lupus erythematosus M32.19 ; BMI 40.0-44.9, adult Z68.41 ; Other chronic pain G89.29 and Controlled substance agreement signed Z79.899 [place] [address] [address] May, Sciatica M54.30 [place] [address] [place] [id number] [place] [address] Apr, Sciatica M54.30 [place] [address] [place] [id number] [place] [address] Mar, Sciatica M54.30 [place] [address] [place] [id number] [place] [address] Feb, Sciatica M54.30 [facility] [address] [place] [id number] [place] [address] 15 Jan, 2017 Sciatica M54.30 [place] [address] [place] [id number] [place] [address] 14 Jan, 2017 Sciatica M54.30 [facility] [address] [place] [id number] [place] [address] Dec, Sciatica M54.30 [facility] [address] [address] Dec, Sciatica M54.30 [facility] [address] [place] [id number] [place] [address] Nov, 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 E78.2 ; Chronic seasonal allergic rhinitis due to other allergen J30.2 and Family history of early CAD Z82.49 [place] [address] [place] [id number] [place] [address] Nov, Sciatica M54.30 [place] [address] [place] [id number] [place] [address] 18 Nov, 2016 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 E78.2 ; Chronic seasonal allergic rhinitis due to other allergen J30.2 ; Family history of early CAD Z82.49 ; Other chronic pain G89.29 and Pain in left shoulder M25.512 [place] [address] [place] [id number] [place] [address] Nov, Acute pain of left shoulder M25.512 [place] [address] [place] [id number] [place] [address] Oct, Sciatica M54.30 [place] [address] [place] [id number] [place] [address] Oct, [place] [address] [place] [id number] [place] [address] Sep, Sciatica M54.30 [place] [address] [place] [id number] [place] [address] Sep, Acute pain of left shoulder M25.512 [place] [address] [place] [id number] [place] [address] Sep, Acute pain of left shoulder M25.512 [place] [address] [place] [id number] [place] [address] Aug, Sciatica M54.30 [place] [address] [place] [id number] [place] [address] 09 Davi, 2017 Sciatica M54.30 ; Tobacco abuse Z72.0 and Tobacco abuse counseling Z71.6 [place] [address] [place] [id number] [place] [address] Aug, Acute pain of left shoulder M25.512 [facility] [place] [address] [place] [id number] [place] [address] Aug, Contusion of right shoulder, initial encounter S40.011A ; Acute pain of left shoulder M25.512 and Shortness of breath R06.02 [place] [address] [place] [id number] [place] [address] Aug, Lumbago with sciatica, right side M54.41 [place] [address] [address] July, [place] [address] [place] [id number] [place] [address] July, Lumbago with sciatica, right side M54.41 [place] [address] [place] [id number] [place] [address] Jun, Lumbago with sciatica, right side M54.41 [place] [address] [place] [id number] [place] [address] May, Lumbago with sciatica, right side M54.41 [facility] [place] [address] [address] [place] [id number] [place] [address] May, Herpes zoster without complication B02.9 [facility] [place] [address] [address] [place] [id number] [place] [address] May, Back pain M54.9 and Acute right-sided low back pain with right-sided sciatica M54.41 [place] [address] [place] [id number] [place] [address] Apr, [place] [address] [place] [id number] [place] [address] Apr, Lumbago with sciatica, right side M54.41 and Other chronic pain G89.29 [facility] [address] [place] [id number] [place] [address] Apr, [facility] [address] [place] [id number] [place] [address] Mar, [facility] [address] [address] Mar, [facility] [address] [place] [id number] [place] [address] Feb, [facility] [address] [address] Jan, Urinary frequency R35.0 [facility] [address] [address] Jan, [facility] [address] [address] Dec, [facility] [address] [place] [id number] [place] [address] Oct, [facility] [address] [place] [id number] [place] [address] Sep, [facility] [address] [place] [id number] [place] [address] Sep, Foreign body in left foot, initial encounter S90.852A [facility] [address] [place] [id number] [place] [address] Aug, [facility] [address] [place] [id number] [place] [address] July, Sciatica M54.30 [facility] [address] [place] [id number] [place] [address] Jun, [facility] [address] [place] [id number] [place] [address] 25 Mar, 2016 Osteoarthritis M19.90 [facility] [address] [place] [id number] [place] [address] May, [facility] [address] [place] [id number] [place] [address] May, Pain in right hip M25.551 [facility] [address] [place] [id number] [place] [address] May, Tinea corporis B35.4 [facility] [address] [place] [id number] [place] [address] 10 Apr, 2015 Pain in right hip M25.551 [place] [address] [address] Mar, Pain in right hip M25.551 [place] [address] [place] [id number] [place] [address] Mar, [facility] [address] [place] [id number] [place] [address] Feb, Pain in right hip M25.551 [place] [address] [place] [id number] [place] [address] Jan, Acute bronchitis, unspecified organism J20.9 and Cough R05 [place] [address] [place] [id number] [place] [address] Jan, Pain in right hip M25.551 [facility] [address] [place] [id number] [place] [address] Dec, Pain in right hip M25.551 [facility] [address] [place] [id number] [place] [address] Nov, Acute bronchitis 466.0 [facility] [address] [place] [id number] [place] [address] Nov, [facility] [address] [place] [id number] [place] [address] Oct, [facility] [place] [facility] [address] [id number] [place] [address] Sep, [facility] [place] [facility] [address] [id number] [place] [address] Aug, [facility] [place] [facility] [address] [id number] [place] [address] July, [facility] [place] [facility] [address] [id number] [place] [address] Jun, [facility] [place] [facility] [address] [id number] [place] [address] Jun, [facility] [place] [facility] [address] [id number] [place] [address] May, [facility] [place] [facility] [address] [id number] [place] [address] May, [facility] [place] [facility] [address] [id number] [place] [address] Apr, [facility] [place] [facility] [address] [id number] [place] [address] Apr, [facility] [place] [facility] [address] [id number] [place] [address] Apr, [facility] [place] [facility] [address] [id number] [place] [address] Apr, [facility] [place] [facility] [address] [id number] [place] [address] Apr, [facility] [place] [facility] [address] [id number] [place] [address] Apr, [facility] [place] [facility] [address] [id number] [place] [address] Mar, [facility] [place] [facility] [address] [id number] [place] [address] Mar, [facility] [place] [facility] [address] [id number] [place] [address] 15 Feb, 2014 [facility] [place] [facility] [address] [id number] [place] [address] Feb, [facility] [place] [facility] [address] [id number] [place] [address] Feb, [facility] [place] [facility] [address] [id number] [place] [address] Dec, [facility] [place] [facility] [address] [id number] [place] [address] Dec, [facility] [place] [facility] [address] [id number] [place] [address] Nov, [facility] [place] [facility] [address] [id number] [place] [address] Nov, [facility] [place] [facility] [address] [id number] [place] [address] Nov, [facility] [place] [facility] [address] [id number] [place] [address] Nov, [facility] [place] [facility] [address] [id number] [place] [address] Sep, [facility] [place] [facility] [address] [facility] [id number] [place] [address] Sep, [facility] [place] [facility] [address] [id number] [place] [address] Sep, [facility] [place] [facility] [address] [id number] [place] [address] Sep, [facility] [place] [facility] [address] [id number] [place] [address] Aug, [facility] [place] [facility] [address] [id number] [place] [address] Aug, [facility] [place] [facility] [address] [id number] [place] [address] Aug, [facility] [place] [facility] [address] [id number] [place] [address] Aug, [facility] [place] [facility] [address] [id number] [place] [address] July, [facility] [place] [facility] [address] [id number] [place] [address] July, [facility] [place] [facility] [address] [id number] [place] [address] Jun, [facility] [place] [facility] [address] [id number] [place] [address] Jun, [facility] [place] [facility] [address] [id number] [place] [address] Jun, [facility] [place] [facility] [address] [id number] [place] [address] Jun, [facility] [place] [facility] [address] [id number] [place] [address] Jun, [facility] [place] [facility] [address] [id number] [place] [address] Jun, [facility] [place] [facility] [address] [id number] [place] [address] Jun, [facility] [place] [facility] [address] [id number] [place] [address] Jun, [facility] [place] [facility] [address] [id number] [place] [address] May, [facility] [place] [facility] [address] [id number] [place] [address] May, [facility] [place] [facility] [address] [id number] [place] [address] May, [facility] [place] [facility] [address] [id number] [place] [address] May, [facility] [place] [facility] [address] [id number] [place] [address] May, [facility] [address] [id number] [place] [address] May, [facility] [place] [facility] [address] [id number] [place] [address] Apr, [facility] [place] [facility] [address] [id number] [place] [address] Apr, [facility] [place] [facility] [address] [id number] [place] [address] Apr, [facility] [place] [facility] [address] [id number] [place] [address] Apr, [facility] [place] [facility] [address] [id number] [place] [address] Mar, [facility] [place] [facility] [address] [id number] [place] [address] Mar, [facility] [place] [facility] [address] [id number] [place] [address] Mar, [facility] [place] [facility] [address] [id number] [place] [address] Mar, [facility] [place] [facility] [address] [facility] [id number] [place] [address] Mar, [facility] [place] [facility] [address] [id number] [place] [address] Mar, [facility] [place] [facility] [address] [id number] [place] [address] Feb, [facility] [place] [facility] [address] [id number] [place] [address] Feb, [facility] [place] [facility] [address] [id number] [place] [address] Feb, [facility] [place] [facility] [address] [id number] [place] [address] Feb, [facility] [place] [facility] [address] [id number] [place] [address] Feb, [facility] [address] [id number] [place] [address] Feb, [facility] [place] [facility] [address] [id number] [place] [address] Feb, [facility] [place] [facility] [address] [id number] [place] [address] Feb, [facility] [place] [facility] [address] [id number] [place] [address] Feb, [facility] [place] [facility] [address] [id number] [place] [address] Feb, [facility] [place] [facility] [address] [id number] [place] [address] Feb, [facility] [place] [facility] [address] [id number] [place] [address] Feb, [facility] [place] [facility] [address] [id number] [place] [address] Jan, [facility] [place] [facility] [address] [id number] [place] [address] Jan, [facility] [place] [facility] [address] [id number] [place] [address] Jan, [facility] [place] [facility] [address] [id number] [place] [address] Jan, [facility] [place] [facility] [address] [id number] [place] [address] Jan, [facility] [place] [facility] [address] [id number] [place] [address] Jan, [facility] [place] [facility] [address] [id number] [place] [address] Jan, [facility] [place] [facility] [address] [id number] [place] [address] Jan, [facility] [place] [facility] [address] [id number] [place] [address] Jan, [facility] [place] [facility] [address] [id number] [place] [address] Jan, [facility] [place] [facility] [address] [id number] [place] [address] Dec, [facility] [place] [facility] [address] [id number] [place] [address] Dec, [facility] [place] [facility] [address] [id number] [place] [address] Nov, [facility] [place] [facility] [address] [id number] [place] [address] Nov, [facility] [place] [facility] [address] [id number] [place] [address] Nov, [facility] [place] [facility] [address] [id number] [place] [address] Nov, [facility] [place] [facility] [address] [id number] [place] [address] Nov, [facility] [place] [facility] [address] [id number] [place] [address] Oct, [facility] [place] [facility] [address] [id number], [place] [address] Oct, [facility] [place] [facility] [address] [id number], [place] [address] Oct, [facility] [place] [facility] [address] [id number] [place] [address] Oct, [facility] [place] [facility] [address] [id number] [place] [address] Oct, [facility] [place] [facility] [address] [id number] [place] [address] Sep, [facility] [place] [facility] [address] [id number] [place] [address] Sep, [facility] [address] [id number] [place] [address] Sep, [facility] [address] [id number] [place] [address] Sep, [facility] [address] [id number] [place] [address] Sep, [facility] [address] [id number] [place] [address] Sep, [facility] [address] [id number] [place] [address] Aug, [facility] [address] [id number] [place] [address] Aug, [facility] [address] [id number] [place] [address] July, [facility] [address] [id number] [place] [address] July, [facility] [address] [id number] [place] [address] July, [facility] [address] [id number] [place] [address] Jun, [facility] [address] [id number] [place] [address] Jun, [facility] [place] [facility] [address] [id number] [place] [address] 16 Jun, 2012 [facility] [place] [facility] [address] [id number] [place] [address] Jun, [facility] [place] [facility] [address] [id number] [place] [address] May, [facility] [place] [facility] [address] [id number] [place] [address] May, [facility] [place] [facility] [address] [id number] [place] [address] Apr, [facility] [place] [facility] [address] [id number] [place] [address] Apr, [facility] [place] [facility] [address] [id number] [place] [address] Apr, [facility] [place] [facility] [address] [id number] [place] [address] Apr, [facility] [place] [facility] [address] [id number] [place] [address] Apr, [facility] [place] [facility] [address] [id number] [place] [address] Apr, [facility] [place] [facility] [address] [id number] [place] [id number] Apr, [facility] [address] [id number] [place] [address] Apr, [facility] [place] [facility] [address] [id number] [place] [address] Mar, [facility] [address] [id number] [place] [address] Mar, [facility] [address] [id number] [place] [address] Mar, [facility] [place] [facility] [address] [id number] [place] [address] Mar, [facility] [place] [facility] [address] [id number] [place] [address] Jan, [facility] [place] [facility] [address] [id number] [place] [address] Jan, [facility] [place] [facility] [address] [id number] [place] [address] Jan, [facility] [place] [facility] [address] [id number] [place] [address] Jan, [facility] [place] [facility] [address] [id number] [place] [address] Jan, [facility] [place] [facility] [address] [id number] [place] [address] Dec, [facility] [place] [facility] [address] [id number] [place] [address] Dec, [facility] [place] [facility] [address] [id number] [place] [address] Dec, [facility] [place] [facility] [address] [id number] [place] [address] Dec, [facility] [place] [facility] [address] [id number] [place] [address] Nov, [facility] [place] [facility] [address] [id number] [place] [address] Oct, [facility] [place] [facility] [address] [id number] [place] [address] Oct, [facility] [place] [facility] [address] [id number] [place] [address] Oct, [facility] [place] [facility] [address] [id number] [place] [address] Oct, [facility] [place] [facility] [address] [id number] [place] [address] Oct, [facility] [place] [facility] [address] [id number] [place] [address] Sep, [facility] [place] [facility] [address] [id number] [place] [address] Sep, [facility] [place] [facility] [address] [id number] [place] [address] Aug, [facility] [place] [facility] [address] [id number] [place] [address] Aug, [facility] [place] [facility] [address] [id number] [place] [address] Aug, [facility] [place] [facility] [address] [id number] [place] [address] Aug, [facility] [place] [facility] [address] [id number] [place] [address] July, [facility] [place] [facility] [address] [id number] [place] [address] Jun, [facility] [place] [facility] [address] [id number] [place] [address] May, [facility] [place] [facility] [address] [id number] [place] [address] May, [facility] [place] [facility] [address] [id number] [place] [address] May, [facility] [place] [facility] [address] [id number] [place] [address] Mar, [facility] [place] [facility] [address] [id number] [place] [address] Feb, [facility] [place] [facility] [address] [id number] [place] [address] Feb, [facility] [place] [facility] [address] [id number] [place] [address] Jan, [facility] [place] [facility] [address] [id number] [place] [address] Jan, [facility] [place] [facility] [address] [id number] [place] [address] 18 Jan, 2011 [facility] [place] [facility] [address] [id number] [place] [address] Jan, [facility] [place] [facility] [address] [id number] [place] [address] 30 Jan, 2010 [facility] [place] [facility] [address] [id number] [place] [address] Dec, [facility] [address] [facility] [id number], [place] [address] Dec, [facility] [id number] [place] [address] Dec, [facility] [id number] [place] [address] May, [facility] [id number] [address] May, [facility] [id number] [place] [address] Apr, [facility] [id number] [place] [address] Jan, [facility] [id number] [place] [address] Apr, IMMUNIZATIONS No Known Immunizations SOCIAL HISTORY Never Assessed REASON FOR VISIT pain management, PT reports her right leg has been hurting a lot especially in t he mornings. - Kain JONES, PT is interested in stopping smoking and wants to tr y patches. PLAN OF CARE Activity Details Follow Up 4 Weeks Reason:smoking cessation Pending Test PANEL (PROFILE 1) VITAL SIGNS Height 61 in 2018-01-30 Weight 188 lbs 2018-01-30 Temperature 98.4 degrees Fahrenheit 2018-01-30 Heart Rate 89 bpm 2018-01-30 Respiratory Rate 20 2018-01-30 Oximetry 97 % 2018-01-30 BMI 35.52 kg/m2 2018-01-30 Blood pressure systolic 138 mmHg 2018-01-30 Blood pressure diastolic 70 mmHg 2018-01-30 MEDICATIONS Medication Instructions Dosage Frequency Start Date End Date Duration Status Lipitor 20 mg Orally Once a day 1 tablet 24h Jan, 30 day(s) Active Lincoln 5-325 MG Orally 3 times a day 1 tablet 8h Jan, Active Nystatin 379214 UNIT/GM Externally Twice a day till healed and prn 1 application to affected area Dec, Active Nicoderm CQ 7 MG/24HR Transdermal Once a day 1 patch to skin 24h Jan, Apr, 30 day(s) Active PredniSONE 10 mg Orally Once a day 1 tablet 24h 30 Active Losartan Potassium 50 MG Orally Once a day 1 tablet 24h 30 day(s) Active Warfarin Sodium 3 MG Orally Once a day 1 tablet 24h 30 day(s) Active Amlodipine Besylate 10 MG Orally Once a day 1 tablet 24h 30 day(s) Active Tylenol 325 MG Orally every 4 hrs 2 tablets as needed 4h Active Hydrochlorothiazide 25 MG Orally Once a day 1 tablet in the morning 24h 30 day(s) Active Imodium A-D 2 MG Orally after loos stools, not to exceed 4 tabs in one day 1 tablet as needed Active Zocor 40 MG 1 tablet 24h 05 Nov, 2012 Not-Taking Plaquenil 200 mg 1 tablet with food or milk 12h 30 days Active RESULTS No Results PROCEDURES Procedure Date Ordered Result Body Site [facility] VISIT ESTABLISHED PATIENT Jan 30, 2018 INSTRUCTIONS MEDICATIONS ADMINISTERED No Known Medications MEDICAL [...] for cancer Hospitalization History surgeries Hospitalization History [facility], heart- kidney- Stayed at [facility] ICU 12/2017
--- OUTSIDE RECORDS SUMMARY | 2018-10-30 20:36 | XMS REPORT ---
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 Name Role Phone STANFORD PENDLETON Unavailable PROBLEMS Type Condition ICD9-CM Code LIK38-XC Code Onset Dates Condition Status SNOMED Code Problem Acute right-sided low back pain with right-sided sciatica M54.41 Active 268446155 Problem 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 E78.2 Active 445271652 Problem Other chronic pain G89.29 Active 69824610 Problem Systemic lupus erythematosus, unspecified SLE type, unspecified organ involvement status M32.9 Active 34677926 Problem Right renal artery stenosis I70.1 Active [id number] Problem Anxiety F41.9 Active 11188528 Problem Other organ or system involvement in systemic lupus erythematosus M32.19 Active 10227551 Problem Episode of recurrent major depressive disorder, unspecified depression episode severity F33.9 Active 118179952 Problem Asymptomatic menopausal state Z78.0 Active 09978000 Problem HILARIO (obstructive sleep apnea) G47.33 Active 32438615 Problem Seborrheic keratoses L82.1 Active 742859188 Problem 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 Active 451939493 Problem Urinary frequency R35.0 Active 667561973 Problem Sciatica M54.30 Active 31576947 Problem Other chronic pain G89.29 Active 25636809 Problem Hepatitis C B19.20 Active 57226249 Problem Lumbago with sciatica, right side M54.41 Active 898024682 ALLERGIES No Information ENCOUNTERS Encounter Location Date Diagnosis [facility] [place] [id number] [address] Jan, [facility] [place] [id number], [place] [address] Jan, [facility] [place] [id number], [place] [address] Dec, [facility] [place] [address], [place] [address] Dec, [facility] [place] [address], [place] [address] Dec, [facility] [place] [id number], [place] [address] Dec, 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 E78.2 ; Other chronic [...] involvement in systemic lupus erythematosus M32.19 [facility] [address] [place] [id number] Dec, Right renal artery stenosis I70.1 ; Other organ or system involvement in systemic lupus erythematosus M32.19 ; Hepatitis C B19.20 ; Tobacco abuse Z72.0 and Weakness R53.1 [facility] [address] [place] [id number] Dec, [place] [address] [id number] [address] Dec, [facility] [place] [id number], [place] [address] Dec, Other organ or system involvement in systemic lupus erythematosus M32.19 [facility] [address] [place] [id number] Dec, Right renal artery stenosis I70.1 ; Injury of right kidney, sequela S37.001S ; Tobacco abuse Z72.0 ; Systemic lupus erythematosus, unspecified SLE type, unspecified organ involvement status M32.9 ; Hepatitis C B19.20 and Candidiasis of female genitalia B37.3 [facility] [place] [address], [place] [address] Dec, Other organ or system involvement in systemic lupus erythematosus M32.19 [facility] [place] [address], [place] [address] Dec, Other organ or system involvement in systemic lupus erythematosus M32.19 [facility] [place] [address], [place] [address] Dec, [facility] [place] [address], [place] [address] Nov, Other organ or system involvement in systemic lupus erythematosus M32.19 [facility] [place] [address], [place] [address] Oct, Other organ or system involvement in systemic lupus erythematosus M32.19 [facility] [place] [address], [place] [address] Sep, Other organ or system involvement in systemic lupus erythematosus M32.19 [facility] [place] [address], [place] [address] Aug, Anxiety F41.9 [facility] [place] [address], [place] [address] Aug, Other organ or system involvement in systemic lupus erythematosus M32.19 [facility] [place] [id number], [place] [address] July, Medicare annual wellness visit, initial Z00.00 ; Anxiety F41.9 ; HILARIO (obstructive sleep apnea) G47.33 ; Hepatitis C B19.20 ; Other chronic pain G89.29 ; Asymptomatic menopausal state Z78.0 and Episode of recurrent major depressive disorder, unspecified depression episode severity F33.9 [facility] [place] [id number], [place] [address] July, Anxiety F41.9 [facility] [place] [address], [place] [address] July, Other organ or system involvement in systemic lupus erythematosus M32.19 [facility] [place] [id number] [place] [address] July, [address] [address] [address] Jun, Other organ or system involvement in systemic lupus erythematosus M32.19 ; BMI 40.0-44.9, adult Z68.41 ; Other chronic pain G89.29 and Controlled substance agreement signed Z79.899 [place] [address] [address] May, Sciatica M54.30 [address] [address] [address] Apr, Sciatica M54.30 [place] [address] [address] Mar, Sciatica M54.30 [place] [address] [address] Feb, Sciatica M54.30 [place] [address] [address] 15 Jan, 2017 Sciatica M54.30 [place] [address] [address] 14 Jan, 2017 Sciatica M54.30 [place] [id number] [place] [address] Dec, Sciatica M54.30 [place] [address] [address] 18 Dec, 2016 Sciatica M54.30 [place] [address] [address] 29 Nov, 2016 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 E78.2 ; Chronic seasonal allergic rhinitis due to other allergen J30.2 and Family history of early CAD Z82.49 [place] [address] [address] 21 Nov, 2016 Sciatica M54.30 [place] [address] [address] 18 Nov, 2016 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 E78.2 ; Chronic seasonal allergic rhinitis due to other allergen J30.2 ; Family history of early CAD Z82.49 ; Other chronic pain G89.29 and Pain in left shoulder M25.512 [facility] [place] [address] [address] 11 Nov, 2016 Acute pain of left shoulder M25.512 [place] [address] [address] Oct, Sciatica M54.30 [place] [address] [address] Oct, [place] [address] [address] Sep, Sciatica M54.30 [place] [address] [address] Sep, Acute pain of left shoulder M25.512 [facility] [place] [address] [address] Sep, Acute pain of left shoulder M25.512 [place] [address] [address] Aug, Sciatica M54.30 [facility] [place] [address] [address] Aug, Sciatica M54.30 ; Tobacco abuse Z72.0 and Tobacco abuse counseling Z71.6 [facility] [place] [address] [address] 05 Aug, 2016 Acute pain of left shoulder M25.512 [facility] [id number] [place] [address] Aug, Contusion of right shoulder, initial encounter S40.011A ; Acute pain of left shoulder M25.512 and Shortness of breath R06.02 [place] [id number] [place] [address] Aug, Lumbago with sciatica, right side M54.41 [place] [id number] [place] [address] July, [place] [address] [address] July, Lumbago with sciatica, right side M54.41 [place] [address] [address] Jun, Lumbago with sciatica, right side M54.41 [place] [id number] [place] [address] May, Lumbago with sciatica, right side M54.41 [facility] [id number] [place] [address] May, Herpes zoster without complication B02.9 [facility] [id number] [place] [address] May, Back pain M54.9 and Acute right-sided low back pain with right-sided sciatica M54.41 [place] [id number] [place] [address] Apr, [place] [id number] [place] [address] Apr, Lumbago with sciatica, right side M54.41 and Other chronic pain G89.29 [place] [id number] [place] [address] Apr, [place] [id number] [place] [address] Mar, [facility] [place] [address] [place] [address] Mar, [facility] [place] [id number] [place] [address] Feb, [facility] [id number] [place] [address] Jan, Urinary frequency R35.0 [facility] [place] [id number] [place] [address] Jan, [facility] [place] [id number] [place] [address] Dec, [facility] [place] [id number] [place] [address] Oct, [facility] [place] [id number] [place] [address] Sep, [facility] [id number] [place] [address] Sep, Foreign body in left foot, initial encounter S90.852A [facility] [place] [id number] [place] [address] Aug, [facility] [place] [id number] [place] [address] July, Sciatica M54.30 [facility] [place] [id number] [place] [address] Jun, [facility] [place] [id number] [place] [address] May, Osteoarthritis M19.90 [facility] [place] [id number] [place] [address] May, [facility] [place] [id number] [place] [address] May, 2016 Pain in right hip M25.551 [facility] [id number] [place] [address] May, Tinea corporis B35.4 [facility] [place] [id number] [place] [address] 10 Apr, 2015 Pain in right hip M25.551 [facility] [place] [id number] [place] [address] Mar, Pain in right hip M25.551 [facility] [place] [id number] [place] [address] Mar, [facility] [place] [id number] [place] [address] Feb, Pain in right hip M25.551 [facility] [place] [id number] [place] [address] Jan, Acute bronchitis, unspecified organism J20.9 and Cough R05 [facility] [place] [id number] [place] [address] Jan, Pain in right hip M25.551 [facility] [place] [id number] [place] [address] Dec, Pain in right hip M25.551 [facility] [place] [id number] [place] [address] Nov, Acute bronchitis 466.0 [facility] [place] [id number] [place] [address] Nov, [facility] [place] [id number] [place] [address] Oct, [facility] [place] [id number] [place] [address] Sep, [facility] [place] [id number] [place] [address] Aug, [facility] [place] [id number] [place] [address] July, [facility] [place] [facility] [address] [id number] [place] [address] Jun, [facility] [place] [facility] [address] [id number] [place] [address] Jun, [facility] [place] [facility] [address] [facility] [id number] [place] [address] May, [facility] [place] [facility] [address] [id number] [place] [address] May, [facility] [place] [facility] [address] [id number] [place] [address] Apr, [facility] [place] [facility] [address] [facility] [id number] [place] [address] Apr, [facility] [place] [facility] [address] [facility] [id number] [place] [address] Apr, 2014 [facility] [place] [facility] [address] [facility] [id number] [place] [address] Apr, [facility] [place] [facility] [address] [facility] [id number] [place] [address] Apr, [facility] [place] [facility] [address] [facility] [id number] [place] [address] 06 Apr, 2014 [facility] [place] [facility] [address] [facility] [id number] [place] [address] Mar, [facility] [place] [facility] [address] [facility] [id number] [place] [address] Mar, [facility] [place] [facility] [address] [facility] [id number] [place] [address] Feb, [facility] [place] [facility] [address] [facility] [id number] [place] [address] Feb, [facility] [place] [facility] [address] [facility] [id number] [place] [address] Feb, [facility] [place] [facility] [address] [id number] [place] [address] Dec, [facility] [place] [facility] [address] [id number] [place] [address] Dec, [facility] [place] [facility] [address] [id number] [place] [address] Nov, [facility] [place] [facility] [address] [id number] [place] [address] Nov, [facility] [place] [facility] [address] [id number] [place] [address] Nov, [facility] [place] [facility] [address] [id number] [place] [address] Nov, [facility] [place] [facility] [address] [id number] [place] [address] Sep, [facility] [place] [facility] [address] [id number] [place] [address] Sep, [facility] [place] [facility] [address] [id number] [place] [address] Sep, [facility] [place] [facility] [address] [id number] [place] [address] Sep, [facility] [place] [facility] [address] [id number] [place] [address] Aug, [facility] [place] [facility] [address] [id number] [place] [address] Aug, [facility] [place] [facility] [address] [id number] [place] [address] Aug, [facility] [place] [facility] [address] [id number] [place] [address] Aug, [facility] [place] [facility] [address] [id number] [place] [address] July, [facility] [place] [facility] [address] [id number] [place] [address] July, [facility] [place] [facility] [address] [id number] [place] [address] Jun, [facility] [place] [facility] [address] [id number] [place] [address] Jun, [facility] [place] [facility] [address] [id number] [place] [address] Jun, [facility] [place] [facility] [address] [id number] [place] [address] Jun, [facility] [place] [facility] [address] [id number] [place] [address] Jun, [facility] [place] [facility] [address] [id number] [place] [address] Jun, [facility] [place] [facility] [address] [id number] [place] [address] Jun, [facility] [place] [facility] [address] [id number] [place] [address] Jun, [facility] [place] [facility] [address] [id number] [place] [address] May, [facility] [place] [facility] [address] [id number] [place] [address] May, [facility] [place] [facility] [address] [id number] [place] [address] May, [facility] [place] [facility] [address] [id number] [place] [address] May, [facility] [place] [facility] [address] [id number] [place] [address] May, [facility] [place] [facility] [address] [id number] [place] [address] May, [facility] [place] [facility] [address] [id number] [place] [address] Apr, [facility] [place] [facility] [address] [id number] [place] [address] Apr, [facility] [address] [id number] [place] [address] Apr, [facility] [address] [id number] [place] [address] Apr, [facility] [address] [id number] [place] [address] Mar, [facility] [address] [id number] [place] [address] Mar, [facility] [address] [id number] [place] [address] Mar, [facility] [address] [id number] [place] [address] Mar, [facility] [address] [id number] [place] [address] Mar, [facility] [address] [id number] [place] [address] Mar, [facility] [address] [id number] [place] [address] Feb, [facility] [address] [id number] [place] [address] Feb, [facility] [place] [facility] [address] [id number] [place] [address] Feb, [facility] [address] [id number] [place] [address] Feb, [facility] [place] [facility] [address] [id number] [place] [address] Feb, [facility] [place] [facility] [address] [id number] [place] [address] Feb, [facility] [place] [facility] [address] [id number] [place] [address] Feb, [facility] [place] [facility] [address] [id number] [place] [address] Feb, [facility] [place] [facility] [address] [id number] [place] [address] Feb, [facility] [place] [facility] [address] [id number] [place] [address] Feb, [facility] [place] [facility] [address] [id number] [place] [address] Feb, [facility] [place] [facility] [address] [id number] [place] [address] Feb, [facility] [place] [facility] [address] [id number] [place] [address] Jan, [facility] [place] [facility] [address] [id number] [place] [address] Jan, [facility] [place] [facility] [address] [id number], [place] [address] Jan, [facility] [place] [facility] [address] [id number] [place] [address] Jan, [facility] [place] [facility] [address] [id number], [place] [address] Jan, [facility] [place] [facility] [address] [id number], [place] [address] Jan, [facility] [place] [facility] [address] [id number], [place] [address] Jan, [facility] [place] [facility] [address] [id number], [place] [address] Jan, [facility] [place] [facility] [address] [id number], [place] [address] Jan, [facility] [place] [facility] [address] [id number], [place] [address] Jan, [facility] [place] [facility] [address] [id number] [place] [address] Dec, [facility] [address] [id number] [place] [address] Dec, [facility] [place] [facility] [address] [id number] [place] [address] Nov, [facility] [place] [facility] [address] [id number] [place] [address] Nov, [facility] [place] [facility] [address] [id number] [place] [address] Nov, [facility] [place] [facility] [address] [id number] [place] [address] Nov, [facility] [place] [facility] [address] [id number] [place] [address] Nov, [facility] [place] [facility] [address] [id number] [place] [address] Oct, [facility] [place] [facility] [address] [id number] [place] [address] Oct, [facility] [place] [facility] [address] [id number] [place] [address] Oct, [facility] [place] [facility] [address] [id number] [place] [address] Oct, [facility] [place] [facility] [address] [id number] [place] [address] Oct, [facility] [place] [facility] [address] [id number] [place] [address] Sep, [facility] [place] [facility] [address] [id number] [place] [address] Sep, [facility] [place] [facility] [address] [id number] [place] [address] Sep, [facility] [place] [facility] [address] [id number] [place] [address] Sep, [facility] [place] [facility] [address] [id number] [place] [address] Sep, [facility] [address] [id number] [place] [address] Sep, [facility] [address] [id number] [place] [address] Aug, [facility] [address] [id number] [place] [address] Aug, [facility] [address] [id number] [place] [address] July, [facility] [address] [id number] [place] [address] July, [facility] [address] [id number] [place] [address] July, [facility] [address] [id number] [place] [address] Jun, [facility] [address] [id number] [place] [address] Jun, [facility] [address] [id number] [place] [address] Jun, [facility] [address] [id number] [place] [address] Jun, [facility] [address] [id number] [place] [address] May, [facility] [place] [facility] [address] [id number] [place] [address] May, [facility] [place] [facility] [address] [id number] [place] [address] Apr, [facility] [place] [facility] [address] [id number] [place] [address] Apr, [facility] [place] [facility] [address] [id number] [place] [address] Apr, [facility] [address] [id number] [place] [address] Apr, [facility] [address] [id number] [place] [address] Apr, [facility] [address] [facility] [id number] [place] [address] Apr, [facility] [address] [facility] [id number] [place] [id number] Apr, [facility] [address] [id number] [place] [address] Apr, [facility] [address] [facility] [id number] [place] [address] Mar, [facility] [address] [facility] [id number] [place] [address] Mar, [facility] [address] [id number] [place] [address] Mar, [facility] [address] [facility] [id number] [place] [address] Mar, [facility] [address] [facility] [id number] [place] [address] Jan, [facility] [address] [id number] [place] [address] Jan, [facility] [address] [id number] [place] [address] Jan, [facility] [address] [id number] [place] [address] Jan, [facility] [address] [facility] [id number] [place] [address] Jan, [facility] [address] [facility] [id number] [place] [address] Dec, [facility] [place] [facility] [address] [id number] [place] [address] Dec, [facility] [place] [facility] [address] [id number] [place] [address] Dec, [facility] [place] [facility] [address] [id number] [place] [address] Dec, [facility] [place] [facility] [address] [id number] [place] [address] Nov, [facility] [place] [facility] [address] [id number] [place] [address] Oct, [facility] [place] [facility] [address] [id number] [place] [address] Oct, [facility] [place] [facility] [address] [id number] [place] [address] Oct, [facility] [place] [facility] [address] [id number] [place] [address] Oct, [facility] [place] [facility] [address] [id number] [place] [address] Oct, [facility] [place] [facility] [address] [id number] [place] [address] Sep, [facility] [place] [facility] [address] [id number] [place] [address] Sep, [facility] [place] [facility] [address] [id number] [place] [address] Aug, [facility] [place] [facility] [address] [id number] [place] [address] Aug, [facility] [place] [facility] [address] [id number] [place] [address] Aug, [facility] [place] [facility] [address] [id number] [place] [address] Aug, [facility] [place] [facility] [address] [id number] [place] [address] July, [facility] [place] [facility] [address] [id number] [place] [address] Jun, [facility] [place] [facility] [address] [id number] [place] [address] May, [facility] [place] [facility] [address] [id number] [place] [address] May, [facility] [place] [facility] [address] [id number] [place] [address] May, [facility] [place] [facility] [address] [id number] [place] [address] Mar, [facility] [place] [facility] [address] [id number] [place] [address] Feb, [facility] [place] [facility] [address] [id number] [place] [address] Feb, [facility] [place] [facility] [address] [id number] [place] [address] Jan, [facility] [place] [facility] [address] [id number] [place] [address] Jan, [facility] [place] [facility] [address] [id number] [place] [address] Jan, [facility] [place] [facility] [address] [id number], [place] [address] Jan, [facility] [place] [facility] [address] [id number], [place] [address] 30 Jan, 2010 [facility] [place] [facility] [address] [id number] [place] [address] 20 Dec, 2009 [facility] [place] [facility] [address] [id number], [place] [address] Dec, [facility] [place] [facility] [address] [id number], [place] [address] Dec, [facility] [place] [facility] [address] [facility] [id number] [place] [address] 18 May, 2009 [facility] [place] [address] [facility] [id number], [place] [address] 15 May, 2009 [facility] [place] [address] [facility] [id number], [place] [address] 17 Apr, 2009 [facility] [place] [address] [facility] [id number], [place] [address] Jan, [facility] [place] [address] [facility] [id number], [place] [address] 11 Apr, 2008 IMMUNIZATIONS No Known Immunizations SOCIAL HISTORY Never Assessed REASON FOR VISIT Requests return call PLAN OF CARE VITAL SIGNS MEDICATIONS Unknown [...]
--- OUTSIDE RECORDS SUMMARY | 2018-10-30 20:37 | XMS REPORT ---
Author Author CHRISTA GLORIA Organization [facility] Address [address] [place] [address] Care Team Providers Care Laboratory Equipment Installer Name Role Phone CHRISTA GLORIA Unavailable PROBLEMS Type Condition ICD9-CM Code [id number] Code Onset Dates Condition Status SNOMED Code Problem Acute right-sided low back pain with right-sided sciatica M54.41 Active 356754512 Problem 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 E78.2 Active 708948613 Problem Other chronic pain G89.29 Active 43069541 Problem Systemic lupus erythematosus, unspecified SLE type, unspecified organ involvement status M32.9 Active 63121108 Problem Right renal artery stenosis I70.1 Active [id number] Problem Anxiety F41.9 Active 29560526 Problem Other organ or system involvement in systemic lupus erythematosus M32.19 Active 92655279 Problem Episode of recurrent major depressive disorder, unspecified depression episode severity F33.9 Active 246016757 Problem Asymptomatic menopausal state Z78.0 Active 28871451 Problem HILARIO (obstructive sleep apnea) G47.33 Active 25864460 Problem Seborrheic keratoses L82.1 Active 008695651 Problem 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 Active 737739080 Problem Urinary frequency R35.0 Active 973673826 Problem Sciatica M54.30 Active 70970403 Problem Other chronic pain G89.29 Active 93489533 Problem Hepatitis C B19.20 Active 18644730 Problem Lumbago with sciatica, right side M54.41 Active 044564854 ALLERGIES No Information ENCOUNTERS Encounter Location Date Diagnosis [facility] [id number], [place] [address] Jan, [facility] [id number] [address] Jan, [facility] [id number] [address] Dec, [facility] [address] [address] Dec, [facility] [id number], [place] [address] Dec, [facility] [id number] [address] Dec, 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 E78.2 ; Other chronic [...] involvement in systemic lupus erythematosus M32.19 [facility] [address] [place] [id number] Dec, Right renal artery stenosis I70.1 ; Other organ or system involvement in systemic lupus erythematosus M32.19 ; Hepatitis C B19.20 ; Tobacco abuse Z72.0 and Weakness R53.1 [facility] [address] [place] [id number] Dec, [place] [id number], [place] [address] Dec, [facility] [id number] [address] Dec, Other organ or system involvement in systemic lupus erythematosus M32.19 [facility] [address] [place] [id number] Dec, Right renal artery stenosis I70.1 ; Injury of right kidney, sequela S37.001S ; Tobacco abuse Z72.0 ; Systemic lupus erythematosus, unspecified SLE type, unspecified organ involvement status M32.9 ; Hepatitis C B19.20 and Candidiasis of female genitalia B37.3 [facility] [id number], [place] [address] Dec, Other organ or system involvement in systemic lupus erythematosus M32.19 [facility] [id number] [address] Dec, Other organ or system involvement in systemic lupus erythematosus M32.19 [facility] [address], [place] [address] Dec, [facility] [address] [address] Nov, Other organ or system involvement in systemic lupus erythematosus M32.19 [facility] [address], [place] [address] Oct, Other organ or system involvement in systemic lupus erythematosus M32.19 [facility] [address], [place] [address] Sep, Other organ or system involvement in systemic lupus erythematosus M32.19 [facility] [address] [address] Aug, Anxiety F41.9 [facility] [id number], [place] [address] Aug, Other organ or system involvement in systemic lupus erythematosus M32.19 [facility] [id number], [place] [address] July, Medicare annual wellness visit, initial Z00.00 ; Anxiety F41.9 ; HILARIO (obstructive sleep apnea) G47.33 ; Hepatitis C B19.20 ; Other chronic pain G89.29 ; Asymptomatic menopausal state Z78.0 and Episode of recurrent major depressive disorder, unspecified depression episode severity F33.9 [facility] [id number], [place] [address] July, Anxiety F41.9 [facility] [id number], [place] [address] 04 May, 2018 Other organ or system involvement in systemic lupus erythematosus M32.19 [place] [id number] [place] [address] July, [place] [address] [address] Jun, 2018 Other organ or system involvement in systemic lupus erythematosus M32.19 ; BMI 40.0-44.9, adult Z68.41 ; Other chronic pain G89.29 and Controlled substance agreement signed Z79.899 [place] [address] [address] May, Sciatica M54.30 [place] [address] [address] Apr, Sciatica M54.30 [place] [address] [address] Mar, Sciatica M54.30 [place] [address] [address] Feb, Sciatica M54.30 [place] [address] [address] 15 Jan, 2017 Sciatica M54.30 [place] [address] [address] 14 Jan, 2017 Sciatica M54.30 [place] [id number] [place] [address] Dec, Sciatica M54.30 [place] [id number] [place] [address] Dec, Sciatica M54.30 [place] [address] [address] Nov, 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 E78.2 ; Chronic seasonal allergic rhinitis due to other allergen J30.2 and Family history of early CAD Z82.49 [place] [address] [address] Nov, Sciatica M54.30 [facility] [address] [address] 18 Nov, 2016 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 E78.2 ; Chronic seasonal allergic rhinitis due to other allergen J30.2 ; Family history of early CAD Z82.49 ; Other chronic pain G89.29 and Pain in left shoulder M25.512 [facility] [address] [address] 11 Nov, 2016 Acute pain of left shoulder M25.512 [place] [address] [address] Oct, Sciatica M54.30 [place] [address] [address] Oct, [place] [address] [address] Sep, Sciatica M54.30 [facility] [address] [address] Sep, Acute pain of left shoulder M25.512 [facility] [address] [address] Sep, Acute pain of left shoulder M25.512 [place] [address] [address] Aug, Sciatica M54.30 [facility] [address] [address] Aug, Sciatica M54.30 ; Tobacco abuse Z72.0 and Tobacco abuse counseling Z71.6 [place] [address] [address] Aug, Acute pain of left shoulder M25.512 [facility] [id number] [place] [address] Aug, Contusion of right shoulder, initial encounter S40.011A ; Acute pain of left shoulder M25.512 and Shortness of breath R06.02 [place] [id number] [place] [address] Aug, Lumbago with sciatica, right side M54.41 [place] [id number] [place] [address] July, [place] [address] [address] July, Lumbago with sciatica, right side M54.41 [place] [address] [address] Jun, Lumbago with sciatica, right side M54.41 [place] [id number] [place] [address] May, Lumbago with sciatica, right side M54.41 [facility] [id number] [place] [address] May, Herpes zoster without complication B02.9 [facility] [id number] [place] [address] May, Back pain M54.9 and Acute right-sided low back pain with right-sided sciatica M54.41 [place] [id number] [place] [address] Apr, [place] [id number] [place] [address] Apr, Lumbago with sciatica, right side M54.41 and Other chronic pain G89.29 [place] [id number] [place] [address] Apr, [place] [id number] [place] [address] Mar, [place] [id number] [place] [address] Mar, [facility] [id number] [place] [address] Feb, [facility] [id number] [place] [address] Jan, Urinary frequency R35.0 [facility] [address] [address] Jan, [facility] [id number] [place] [address] Dec, [facility] [id number] [place] [address] Oct, [facility] [id number] [place] [address] Sep, [facility] [id number] [place] [address] Sep, Foreign body in left foot, initial encounter S90.852A [facility] [id number] [place] [address] Aug, [facility] [id number] [place] [address] July, Sciatica M54.30 [facility] [id number] [place] [address] Jun, [facility] [id number] [place] [address] May, Osteoarthritis M19.90 [facility] [id number] [place] [address] May, [facility] [id number] [place] [address] May, 2016 Pain in right hip M25.551 [facility] [id number] [place] [address] May, Tinea corporis B35.4 [facility] [address] [place] [address] 10 Apr, 2015 Pain in right hip M25.551 [facility] [id number] [place] [address] 11 Mar, 2015 Pain in right hip M25.551 [facility] [id number] [place] [address] Mar, [facility] [id number] [place] [address] Feb, Pain in right hip M25.551 [facility] [id number] [place] [address] Jan, Acute bronchitis, unspecified organism J20.9 and Cough R05 [facility] [id number] [place] [address] Jan, Pain in right hip M25.551 [facility] [id number] [place] [address] Dec, Pain in right hip M25.551 [facility] [address] [place] [address] Nov, Acute bronchitis 466.0 [facility] [id number] [place] [address] Nov, [facility] [address] [place] [address] Oct, [facility] [id number] [place] [address] Sep, [facility] [address] [place] [address] Aug, [facility] [id number] [place] [address] July, [facility] [place] [facility] [address] [id number] [place] [address] 14 Jun, 2014 [facility] [place] [facility] [address] [id number] [place] [address] Jun, [facility] [place] [facility] [address] [id number] [place] [address] May, [facility] [place] [facility] [address] [id number] [place] [address] May, [facility] [place] [facility] [address] [id number] [place] [address] Apr, [facility] [place] [facility] [address] [id number] [place] [address] Apr, [facility] [place] [facility] [address] [facility] [id number] [place] [address] Apr, [facility] [place] [facility] [address] [id number] [place] [address] Apr, [facility] [place] [facility] [address] [id number] [place] [address] Apr, [facility] [place] [facility] [address] [id number] [place] [address] Apr, [facility] [place] [facility] [address] [id number] [place] [address] Mar, [facility] [place] [facility] [address] [id number] [place] [address] Mar, [facility] [place] [facility] [address] [id number] [place] [address] Feb, [facility] [place] [facility] [address] [id number] [place] [address] Feb, [facility] [place] [facility] [address] [facility] [id number] [place] [address] Feb, [facility] [place] [facility] [address] [id number] [place] [address] Dec, [facility] [place] [facility] [address] [id number] [place] [address] Dec, [facility] [place] [facility] [address] [id number] [place] [address] Nov, [facility] [place] [facility] [address] [id number] [place] [address] Nov, [facility] [place] [facility] [address] [id number] [place] [address] Nov, [facility] [place] [facility] [address] [id number] [place] [address] Nov, [facility] [place] [facility] [address] [id number] [place] [address] Sep, [facility] [place] [facility] [address] [id number] [place] [address] Sep, [facility] [place] [facility] [address] [id number] [place] [address] Sep, [facility] [place] [facility] [address] [id number] [place] [address] Sep, [facility] [place] [facility] [address] [id number] [place] [address] Aug, [facility] [place] [facility] [address] [id number] [place] [address] Aug, [facility] [place] [facility] [address] [id number] [place] [address] Aug, [facility] [place] [facility] [address] [id number] [place] [address] Aug, [facility] [place] [facility] [address] [id number] [place] [address] July, [facility] [place] [facility] [address] [id number] [place] [address] July, [facility] [place] [facility] [address] [id number] [place] [address] Jun, [facility] [place] [facility] [address] [id number] [place] [address] Jun, [facility] [place] [facility] [address] [id number] [place] [address] Jun, [facility] [place] [facility] [address] [id number] [place] [address] Jun, [facility] [place] [facility] [address] [id number] [place] [address] Jun, [facility] [place] [facility] [address] [id number] [place] [address] Jun, [facility] [place] [facility] [address] [id number] [place] [address] Jun, [facility] [place] [facility] [address] [id number] [place] [address] Jun, [facility] [place] [facility] [address] [id number] [place] [address] May, [facility] [place] [facility] [address] [id number] [place] [address] May, [facility] [place] [facility] [address] [id number] [place] [address] May, [facility] [place] [facility] [address] [id number] [place] [address] May, [facility] [place] [facility] [address] [id number] [place] [address] May, [facility] [place] [facility] [address] [id number] [place] [address] May, [facility] [place] [facility] [address] [id number] [place] [address] Apr, [facility] [place] [facility] [address] [id number] [address] Apr, [facility] [address] [id number] [place] [address] Apr, [facility] [place] [facility] [address] [id number] [place] [address] Apr, [facility] [address] [id number] [place] [address] Mar, [facility] [place] [facility] [address] [id number] [place] [address] Mar, [facility] [address] [id number] [place] [address] Mar, [facility] [address] [id number] [place] [address] Mar, [facility] [address] [id number] [place] [address] Mar, [facility] [address] [id number] [place] [address] Mar, [facility] [address] [id number] [place] [address] Feb, [facility] [address] [id number] [place] [address] Feb, [facility] [address] [id number] [place] [address] Feb, [facility] [place] [facility] [address] [id number] [place] [address] Feb, [facility] [place] [facility] [address] [id number] [place] [address] Feb, [facility] [place] [facility] [address] [id number] [place] [address] Feb, [facility] [place] [facility] [address] [id number] [address] Feb, [facility] [place] [facility] [address] [id number] [place] [address] Feb, [facility] [place] [facility] [address] [id number] [place] [address] Feb, [facility] [place] [facility] [address] [id number] [place] [address] Feb, [facility] [place] [facility] [address] [id number] [place] [address] Feb, [facility] [place] [facility] [address] [id number] [place] [address] Feb, [facility] [place] [facility] [address] [id number] [place] [address] Jan, [facility] [place] [facility] [address] [id number] [place] [address] Jan, [facility] [place] [facility] [address] [id number] [place] [address] Jan, [facility] [place] [facility] [address] [id number] [place] [address] Jan, [facility] [place] [facility] [address] [id number] [place] [address] Jan, [facility] [place] [facility] [address] [id number] [place] [address] Jan, [facility] [place] [facility] [address] [id number] [place] [address] Jan, [facility] [place] [facility] [address] [id number] [place] [address] Jan, [facility] [place] [facility] [address] [id number] [place] [address] Jan, [facility] [place] [facility] [address] [id number] [place] [address] Jan, [facility] [place] [facility] [address] [id number] [place] [address] Dec, [facility] [place] [facility] [address] [id number] [place] [address] Dec, [facility] [place] [facility] [address] [id number] [place] [address] Nov, [facility] [place] [facility] [address] [id number] [place] [address] Nov, [facility] [place] [facility] [address] [id number] [place] [address] Nov, [facility] [place] [facility] [address] [id number] [place] [address] Nov, [facility] [place] [facility] [address] [id number] [place] [address] Nov, [facility] [place] [facility] [address] [id number] [place] [address] Oct, [facility] [place] [facility] [address] [id number] [place] [address] Oct, [facility] [place] [facility] [address] [id number] [place] [address] Oct, [facility] [place] [facility] [address] [id number] [place] [address] Oct, [facility] [place] [facility] [address] [id number] [place] [address] Oct, [facility] [place] [facility] [address] [id number], [place] [address] Sep, [facility] [place] [facility] [address] [id number] [place] [address] Sep, [facility] [place] [facility] [address] [id number] [place] [address] Sep, [facility] [place] [facility] [address] [id number] [place] [address] Sep, [facility] [place] [facility] [address] [id number] [place] [address] Sep, [facility] [address] [id number] [place] [address] Sep, [facility] [address] [id number] [place] [address] Aug, [facility] [address] [id number] [place] [address] Aug, [facility] [address] [id number] [place] [address] July, [facility] [address] [id number] [place] [address] July, [facility] [address] [id number] [place] [address] July, [facility] [address] [id number] [place] [address] Jun, [facility] [address] [id number] [place] [address] Jun, [facility] [address] [id number] [place] [address] Jun, [facility] [address] [id number] [place] [address] Jun, [facility] [address] [id number] [place] [address] May, [facility] [address] [id number] [place] [address] May, [facility] [address] [id number] [place] [address] Apr, [facility] [address] [id number] [place] [address] Apr, [facility] [address] [id number] [place] [address] Apr, [facility] [address] [id number] [place] [address] Apr, [facility] [address] [id number] [place] [address] Apr, [facility] [address] [id number] [place] [address] Apr, [facility] [address] [id number] [place] [id number] Apr, [facility] [address] [id number] [place] [address] Apr, [facility] [address] [id number] [place] [address] Mar, [facility] [address] [id number] [place] [address] Mar, [facility] [address] [id number] [place] [address] Mar, [facility] [address] [id number] [place] [address] Mar, [facility] [address] [id number] [place] [address] Jan, [facility] [address] [id number] [place] [address] Jan, [facility] [place] [facility] [address] [id number] [place] [address] Jan, [facility] [place] [facility] [address] [id number] [place] [address] Jan, [facility] [place] [facility] [address] [id number] [place] [address] Jan, [facility] [place] [facility] [address] [id number] [place] [address] Dec, [facility] [address] [id number] [place] [address] Dec, [facility] [place] [facility] [address] [id number] [place] [address] Dec, [facility] [place] [facility] [address] [id number] [place] [address] Dec, [facility] [place] [facility] [address] [id number] [place] [address] Nov, [facility] [place] [facility] [address] [id number] [place] [address] Oct, [facility] [place] [facility] [address] [id number] [place] [address] Oct, [facility] [place] [facility] [address] [id number] [place] [place] [address] Oct, [facility] [place] [facility] [address] [id number] [place] [address] Oct, [facility] [place] [facility] [address] [id number] [place] [address] Oct, [facility] [place] [facility] [address] [id number] [place] [address] Sep, [facility] [place] [facility] [address] [id number] [place] [address] Sep, [facility] [place] [facility] [address] [id number] [place] [address] Aug, [facility] [place] [facility] [address] [id number] [place] [address] Aug, [facility] [place] [facility] [address] [id number] [place] [address] Aug, [facility] [place] [facility] [address] [id number] [place] [address] Aug, [facility] [place] [facility] [address] [id number] [place] [address] July, [facility] [place] [facility] [address] [id number] [place] [address] Jun, [facility] [place] [facility] [address] [id number] [place] [address] 28 May, 2011 [facility] [place] [facility] [address] [id number] [place] [address] May, [facility] [place] [facility] [address] [id number] [place] [address], [place] [address] May, [facility] [place] [facility] [address] [id number] [place] [address] Mar, [facility] [place] [facility] [address] [id number] [place] [address] Feb, [facility] [place] [facility] [address] [id number] [place] [address] Feb, [facility] [place] [facility] [address] [id number] [place] [address] Jan, [facility] [place] [facility] [address] [id number] [place] [address] Jan, [facility] [place] [facility] [address] [id number] [place] [address] Jan, [facility] [place] [facility] [address] [id number] [place] [address] Jan, [facility] [place] [facility] [address] [id number] [place] [address] 30 Jan, 2010 [facility] [place] [facility] [address] [id number] [place] [address] Dec, [facility] [place] [facility] [address] [id number] [place] [address] 13 Dec, 2009 [facility] [place] [facility] [address] [id number] [place] [address] 13 Dec, 2009 [facility] [place] [facility] [address] [id number] [address] 18 May, 2009 [facility] [address] [facility] [id number] [address] May, [facility] [address] [facility] [id number], [place] [address] 17 Apr, 2009 [facility] [address] [facility] [id number], [place] [address] Jan, [facility] [address] [facility] [id number], [place] [address] 11 Apr, 2008 IMMUNIZATIONS No Known Immunizations SOCIAL HISTORY Never Assessed REASON FOR VISIT medication refill PLAN OF CARE VITAL SIGNS MEDICATIONS Medication Instructions Dosage Frequency Start Date End Date Duration Status PredniSONE 10 mg Orally Once a day 1 tablet 24h 30 Active RESULTS No Results PROCEDURES No Known [...]
--- OUTSIDE RECORDS SUMMARY | 2018-10-30 20:37 | XMS REPORT ---
Author Author CHRISTA GLORIA Organization [facility] Address [address] [place] [address] Care Team Providers Care Log Data Technician Name Role Phone CHRISTA GLORIA Unavailable PROBLEMS Type Condition ICD9-CM Code [id number] Code Onset Dates Condition Status SNOMED Code Problem Acute right-sided low back pain with right-sided sciatica M54.41 Active 209728977 Problem 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 E78.2 Active 352882413 Problem Other chronic pain G89.29 Active 61685937 Problem Systemic lupus erythematosus, unspecified SLE type, unspecified organ involvement status M32.9 Active 12670638 Problem Right renal artery stenosis I70.1 Active [id number] Problem Anxiety F41.9 Active 83725762 Problem Other organ or system involvement in systemic lupus erythematosus M32.19 Active 70325548 Problem Episode of recurrent major depressive disorder, unspecified depression episode severity F33.9 Active 680885506 Problem Asymptomatic menopausal state Z78.0 Active 78094067 Problem HILARIO (obstructive sleep apnea) G47.33 Active 13611524 Problem Seborrheic keratoses L82.1 Active 632072509 Problem 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 Active 591253831 Problem Urinary frequency R35.0 Active 908667532 Problem Sciatica M54.30 Active 16144036 Problem Other chronic pain G89.29 Active 23878418 Problem Hepatitis C B19.20 Active 81009128 Problem Lumbago with sciatica, right side M54.41 Active 821835825 ALLERGIES No Information ENCOUNTERS Encounter Location Date Diagnosis [facility] [id number], [place] [address] Jan, [facility] [place] [id number], [place] [address] Jan, [facility] [place] [id number], [place] [address] Dec, [facility] [place] [address], [place] [address] Dec, [facility] [place] [id number], [place] [address] Dec, [facility] [place] [id number], [place] [address] Dec, 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 E78.2 ; Other chronic [...] involvement in systemic lupus erythematosus M32.19 [facility] [employer] [address] [place] [id number] Dec, Right renal artery stenosis I70.1 ; Other organ or system involvement in systemic lupus erythematosus M32.19 ; Hepatitis C B19.20 ; Tobacco abuse Z72.0 and Weakness R53.1 [facility] [employer] [address] [place] [id number] Dec, [place] [id number], [place] [address] Dec, [place] [id number], [place] [address] Dec, Other organ or system involvement in systemic lupus erythematosus M32.19 [facility] [employer] [address] [place] [id number] Dec, Right renal artery stenosis I70.1 ; Injury of right kidney, sequela S37.001S ; Tobacco abuse Z72.0 ; Systemic lupus erythematosus, unspecified SLE type, unspecified organ involvement status M32.9 ; Hepatitis C B19.20 and Candidiasis of female genitalia B37.3 [place] [id number], [place] [address] Dec, Other organ or system involvement in systemic lupus erythematosus M32.19 [facility] [place] [id number], [place] [address] Dec, Other organ or system involvement in systemic lupus erythematosus M32.19 [facility] [place] [address], [place] [address] Dec, [facility] [place] [address], [place] [address] Nov, Other organ or system involvement in systemic lupus erythematosus M32.19 [facility] [place] [address], [place] [address] Oct, Other organ or system involvement in systemic lupus erythematosus M32.19 [facility] [place] [address], [place] [address] Sep, Other organ or system involvement in systemic lupus erythematosus M32.19 [facility] [place] [address], [place] [address] Aug, Anxiety F41.9 [facility] [place] [id number], [place] [address] Aug, Other organ or system involvement in systemic lupus erythematosus M32.19 [facility] [place] [id number], [place] [address] July, Medicare annual wellness visit, initial Z00.00 ; Anxiety F41.9 ; HILARIO (obstructive sleep apnea) G47.33 ; Hepatitis C B19.20 ; Other chronic pain G89.29 ; Asymptomatic menopausal state Z78.0 and Episode of recurrent major depressive disorder, unspecified depression episode severity F33.9 [facility] [place] [id number], [place] [address] July, Anxiety F41.9 [facility] [place] [id number], [place] [address] 04 May, 2018 Other organ or system involvement in systemic lupus erythematosus M32.19 [place] [id number] [place] [address] July, [place] [address] [address] Jun, 2018 Other organ or system involvement in systemic lupus erythematosus M32.19 ; BMI 40.0-44.9, adult Z68.41 ; Other chronic pain G89.29 and Controlled substance agreement signed Z79.899 [place] [address] [address] May, Sciatica M54.30 [place] [address] [address] Apr, Sciatica M54.30 [place] [address] [address] Mar, Sciatica M54.30 [place] [address] [address] Feb, Sciatica M54.30 [place] [address] [address] 15 Jan, 2017 Sciatica M54.30 [place] [address] [address] 14 Jan, 2017 Sciatica M54.30 [place] [id number] [place] [address] Dec, Sciatica M54.30 [place] [id number] [place] [address] Dec, Sciatica M54.30 [place] [address] [address] Nov, 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 E78.2 ; Chronic seasonal allergic rhinitis due to other allergen J30.2 and Family history of early CAD Z82.49 [place] [address] [address] Nov, Sciatica M54.30 [facility] [place] [address] [address] 18 Nov, 2016 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 E78.2 ; Chronic seasonal allergic rhinitis due to other allergen J30.2 ; Family history of early CAD Z82.49 ; Other chronic pain G89.29 and Pain in left shoulder M25.512 [facility] [place] [address] [address] 11 Nov, 2016 Acute pain of left shoulder M25.512 [address] [address] [address] Oct, Sciatica M54.30 [place] [address] [address] Oct, [place] [address] [address] Sep, Sciatica M54.30 [facility] [place] [address] [address] Sep, Acute pain of left shoulder M25.512 [facility] [place] [address] [address] Sep, Acute pain of left shoulder M25.512 [address] [address] [address] Aug, Sciatica M54.30 [facility] [place] [address] [address] Aug, Sciatica M54.30 ; Tobacco abuse Z72.0 and Tobacco abuse counseling Z71.6 [place] [address] [address] Aug, Acute pain of left shoulder M25.512 [facility] [id number] [place] [address] Aug, Contusion of right shoulder, initial encounter S40.011A ; Acute pain of left shoulder M25.512 and Shortness of breath R06.02 [place] [id number] [place] [address] Aug, Lumbago with sciatica, right side M54.41 [place] [id number] [place] [address] July, [place] [address] [address] July, Lumbago with sciatica, right side M54.41 [place] [address] [address] Jun, Lumbago with sciatica, right side M54.41 [place] [id number] [place] [address] May, Lumbago with sciatica, right side M54.41 [facility] [id number] [place] [address] May, Herpes zoster without complication B02.9 [facility] [id number] [place] [address] May, Back pain M54.9 and Acute right-sided low back pain with right-sided sciatica M54.41 [place] [id number] [place] [address] Apr, [place] [id number] [place] [address] Apr, Lumbago with sciatica, right side M54.41 and Other chronic pain G89.29 [place] [id number] [place] [address] Apr, [place] [id number] [place] [address] Mar, [place] [id number] [place] [address] Mar, [facility] [place] [id number] [place] [address] Feb, [facility] [id number] [place] [address] Jan, Urinary frequency R35.0 [facility] [place] [address] [address] Jan, [facility] [place] [id number] [place] [address] Dec, [facility] [place] [id number] [place] [address] Oct, [facility] [place] [id number] [place] [address] Sep, [facility] [id number] [place] [address] Sep, Foreign body in left foot, initial encounter S90.852A [facility] [place] [id number] [place] [address] Aug, [facility] [place] [id number] [place] [address] July, Sciatica M54.30 [facility] [place] [id number] [place] [address] Jun, [facility] [place] [id number] [place] [address] May, Osteoarthritis M19.90 [facility] [place] [id number] [place] [address] May, [facility] [id number] [place] [address] May, 2016 Pain in right hip M25.551 [facility] [id number] [place] [address] May, Tinea corporis B35.4 [facility] [place] [address] [place] [address] 10 Apr, 2015 Pain in right hip M25.551 [facility] [place] [id number] [place] [address] 11 Mar, 2015 Pain in right hip M25.551 [facility] [place] [id number] [place] [address] Mar, [facility] [place] [id number] [place] [address] Feb, Pain in right hip M25.551 [facility] [place] [id number] [place] [address] Jan, Acute bronchitis, unspecified organism J20.9 and Cough R05 [facility] [place] [id number] [place] [address] Jan, Pain in right hip M25.551 [facility] [place] [id number] [place] [address] Dec, Pain in right hip M25.551 [facility] [place] [address] [place] [address] Nov, Acute bronchitis 466.0 [facility] [place] [id number] [place] [address] Nov, [facility] [place] [address] [place] [address] Oct, [facility] [place] [id number] [place] [address] Sep, [facility] [place] [id number] [place] [address] Aug, [facility] [place] [id number] [place] [address] July, [facility] [place] [facility] [address] [id number] [place] [address] 14 Jun, 2014 [facility] [place] [facility] [address] [id number] [place] [address] Jun, [facility] [place] [facility] [address] [id number] [place] [address] May, [facility] [place] [facility] [address] [id number] [place] [address] May, [facility] [place] [facility] [address] [id number] [place] [address] Apr, [facility] [place] [facility] [address] [id number] [place] [address] Apr, [facility] [place] [facility] [address] [facility] [id number] [place] [address] Apr, [facility] [place] [facility] [address] [id number] [place] [address] Apr, [facility] [place] [facility] [address] [id number] [place] [address] Apr, [facility] [place] [facility] [address] [id number] [place] [address] Apr, [facility] [place] [facility] [address] [id number] [place] [address] Mar, [facility] [place] [facility] [address] [id number] [place] [address] Mar, [facility] [place] [facility] [address] [id number] [place] [address] Feb, [facility] [place] [facility] [address] [id number] [place] [address] Feb, [facility] [place] [facility] [address] [facility] [id number] [place] [address] Feb, [facility] [place] [facility] [address] [id number] [place] [address] Dec, [facility] [place] [facility] [address] [id number] [place] [address] Dec, [facility] [place] [facility] [address] [id number] [place] [address] Nov, [facility] [place] [facility] [address] [id number] [place] [address] Nov, [facility] [place] [facility] [address] [id number] [place] [address] Nov, [facility] [place] [facility] [address] [id number] [place] [address] Nov, [facility] [place] [facility] [address] [id number] [place] [address] Sep, [facility] [place] [facility] [address] [id number] [place] [address] Sep, [facility] [place] [facility] [address] [id number] [place] [address] Sep, [facility] [place] [facility] [address] [id number] [place] [address] Sep, [facility] [place] [facility] [address] [id number] [place] [address] Aug, [facility] [place] [facility] [address] [id number] [place] [address] Aug, [facility] [place] [facility] [address] [id number] [place] [address] Aug, [facility] [place] [facility] [address] [id number] [place] [address] Aug, [facility] [place] [facility] [address] [id number] [place] [address] July, [facility] [place] [facility] [address] [id number] [place] [address] July, [facility] [place] [facility] [address] [id number] [place] [address] Jun, [facility] [place] [facility] [address] [id number] [place] [address] Jun, [facility] [place] [facility] [address] [id number] [place] [address] Jun, [facility] [place] [facility] [address] [id number] [place] [address] Jun, [facility] [place] [facility] [address] [id number] [place] [address] Jun, [facility] [place] [facility] [address] [id number] [place] [address] Jun, [facility] [place] [facility] [address] [id number] [place] [address] Jun, [facility] [place] [facility] [address] [id number] [place] [address] Jun, [facility] [place] [facility] [address] [id number] [place] [address] May, [facility] [place] [facility] [address] [id number] [place] [address] May, [facility] [place] [facility] [address] [id number] [place] [address] May, [facility] [place] [facility] [address] [id number] [place] [address] May, [facility] [place] [facility] [address] [id number] [place] [address] May, [facility] [place] [facility] [address] [id number] [place] [address] May, [facility] [place] [facility] [address] [id number] [place] [address] Apr, [facility] [place] [facility] [address] [id number], [place] [address] Apr, [facility] [address] [id number] [place] [address] Apr, [facility] [place] [facility] [address] [id number] [place] [address] Apr, [facility] [address] [id number] [place] [address] Mar, [facility] [place] [facility] [address] [id number] [place] [address] Mar, [facility] [address] [id number] [place] [address] Mar, [facility] [address] [id number] [place] [address] Mar, [facility] [address] [id number] [place] [address] Mar, [facility] [address] [id number] [place] [address] Mar, [facility] [address] [id number] [place] [address] Feb, [facility] [address] [id number] [place] [address] Feb, [facility] [address] [id number] [place] [address] Feb, [facility] [place] [facility] [address] [id number] [place] [address] Feb, [facility] [place] [facility] [address] [id number] [place] [address] Feb, [facility] [place] [facility] [address] [id number] [place] [address] Feb, [facility] [place] [facility] [address] [id number], [place] [address] Feb, [facility] [place] [facility] [address] [id number] [place] [address] Feb, [facility] [place] [facility] [address] [id number] [place] [address] Feb, [facility] [place] [facility] [address] [id number] [place] [address] Feb, [facility] [place] [facility] [address] [id number] [place] [address] Feb, [facility] [place] [facility] [address] [id number] [place] [address] Feb, [facility] [place] [facility] [address] [id number] [place] [address] Jan, [facility] [place] [facility] [address] [id number] [place] [address] Jan, [facility] [place] [facility] [address] [id number] [place] [address] Jan, [facility] [place] [facility] [address] [id number] [place] [address] Jan, [facility] [place] [facility] [address] [id number] [place] [address] Jan, [facility] [place] [facility] [address] [id number] [place] [address] Jan, [facility] [place] [facility] [address] [id number] [place] [address] Jan, [facility] [place] [facility] [address] [id number] [place] [address] Jan, [facility] [place] [facility] [address] [id number] [place] [address] Jan, [facility] [place] [facility] [address] [id number] [place] [address] Jan, [facility] [place] [facility] [address] [id number] [place] [address] Dec, [facility] [place] [facility] [address] [id number] [place] [address] Dec, [facility] [place] [facility] [address] [id number] [place] [address] Nov, [facility] [place] [facility] [address] [id number] [place] [address] Nov, [facility] [place] [facility] [address] [id number] [place] [address] Nov, [facility] [place] [facility] [address] [id number] [place] [address] Nov, [facility] [place] [facility] [address] [id number] [place] [address] Nov, [facility] [place] [facility] [address] [id number] [place] [address] Oct, [facility] [place] [facility] [address] [id number] [place] [address] Oct, [facility] [place] [facility] [address] [id number] [place] [address] Oct, [facility] [place] [facility] [address] [id number] [place] [address] Oct, [facility] [place] [facility] [address] [id number] [place] [address] Oct, [facility] [place] [facility] [address] [id number], [place] [address] Sep, [facility] [place] [facility] [address] [id number] [place] [address] Sep, [facility] [place] [facility] [address] [id number] [place] [address] Sep, [facility] [place] [facility] [address] [id number] [place] [address] Sep, [facility] [place] [facility] [address] [id number] [place] [address] Sep, [facility] [address] [id number] [place] [address] Sep, [facility] [address] [id number] [place] [address] Aug, [facility] [address] [id number] [place] [address] Aug, [facility] [address] [id number] [place] [address] July, [facility] [address] [id number] [place] [address] July, [facility] [address] [id number] [place] [address] July, [facility] [address] [id number] [place] [address] Jun, [facility] [address] [id number] [place] [address] Jun, [facility] [address] [id number] [place] [address] Jun, [facility] [address] [id number] [place] [address] Jun, [facility] [address] [id number] [place] [address] May, [facility] [address] [id number] [place] [address] May, [facility] [address] [id number] [place] [address] Apr, [facility] [address] [id number] [place] [address] Apr, [facility] [address] [id number] [place] [address] Apr, [facility] [address] [id number] [place] [address] Apr, [facility] [address] [id number] [place] [address] Apr, [facility] [address] [id number] [place] [address] Apr, [facility] [address] [id number] [place] [id number] Apr, [facility] [address] [id number] [place] [address] Apr, [facility] [address] [id number] [place] [address] Mar, [facility] [address] [id number] [place] [address] Mar, [facility] [address] [id number] [place] [address] Mar, [facility] [address] [id number] [place] [address] Mar, [facility] [address] [id number] [place] [address] Jan, [facility] [address] [id number] [place] [address] Jan, [facility] [place] [facility] [address] [id number] [place] [address] Jan, [facility] [place] [facility] [address] [id number] [place] [address] Jan, [facility] [place] [facility] [address] [id number] [place] [address] Jan, [facility] [place] [facility] [address] [id number] [place] [address] Dec, [facility] [address] [id number] [place] [address] Dec, [facility] [place] [facility] [address] [id number] [place] [address] Dec, [facility] [place] [facility] [address] [id number] [place] [address] Dec, [facility] [place] [facility] [address] [id number] [place] [address] Nov, [facility] [place] [facility] [address] [id number] [place] [address] Oct, [facility] [place] [facility] [address] [id number] [place] [address] Oct, [facility] [place] [facility] [address] [id number] [place] [address] Oct, [facility] [place] [facility] [address] [id number] [place] [address] Oct, [facility] [place] [facility] [address] [id number] [place] [address] Oct, [facility] [place] [facility] [address] [id number] [place] [address] Sep, [facility] [place] [facility] [address] [id number] [place] [address] Sep, [facility] [place] [facility] [address] [id number] [place] [address] Aug, [facility] [place] [facility] [address] [id number] [place] [address] Aug, [facility] [place] [facility] [address] [id number] [place] [address] Aug, [facility] [place] [facility] [address] [id number] [place] [address] Aug, [facility] [place] [facility] [address] [id number] [place] [address] July, [facility] [place] [facility] [address] [id number] [place] [address] Jun, [facility] [place] [facility] [address] [id number] [place] [address] 28 May, 2011 [facility] [place] [facility] [address] [id number] [place] [address] May, [facility] [place] [facility] [address] [id number] [place] [address], [place] [address] May, [facility] [place] [facility] [address] [id number] [place] [address] Mar, [facility] [place] [facility] [address] [id number] [place] [address] Feb, [facility] [place] [facility] [address] [id number] [place] [address] Feb, [facility] [place] [facility] [address] [id number] [place] [address] Jan, [facility] [place] [facility] [address] [id number] [place] [address] Jan, [facility] [place] [facility] [address] [id number] [place] [address] Jan, [facility] [place] [facility] [address] [id number] [place] [address] Jan, [facility] [place] [facility] [address] [id number] [place] [address] 30 Jan, 2010 [facility] [place] [facility] [address] [id number] [place] [address] Dec, [facility] [place] [facility] [address] [id number] [place] [address] 13 Dec, 2009 [facility] [place] [facility] [address] [id number] [place] [address] 13 Dec, 2009 [facility] [place] [facility] [address] [id number] [place] [address] 18 May, 2009 [facility] [place] [address] [facility] [place] [id number], [place] [address] May, [facility] [place] [address] [facility] [place] [id number], [place] [address] 17 Apr, 2009 [facility] [place] [address] [facility] [place] [id number], [place] [address] Jan, [facility] [place] [address] [facility] [place] [id number], [place] [address] 11 Apr, 2008 IMMUNIZATIONS No Known Immunizations SOCIAL HISTORY Never Assessed REASON FOR VISIT medication questions PLAN OF CARE VITAL SIGNS MEDICATIONS Unknown [...]
--- OUTSIDE RECORDS SUMMARY | 2018-10-30 20:38 | XMS REPORT ---
Author Author STANFORD PENDLETON Organization [facility] Address [address] [place] [address] Care Team Providers Care Anchor Tacker Name Role Phone STANFORD PENDLETON Unavailable PROBLEMS Type Condition ICD9-CM Code IPB03-KH Code Onset Dates Condition Status SNOMED Code Problem Acute right-sided low back pain with right-sided sciatica M54.41 Active 435406352 Problem 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 E78.2 Active 791672922 Problem Other chronic pain G89.29 Active 13568355 Problem Systemic lupus erythematosus, unspecified SLE type, unspecified organ involvement status M32.9 Active 28966740 Problem Right renal artery stenosis I70.1 Active [id number] Problem Anxiety F41.9 Active 82176804 Problem Other organ or system involvement in systemic lupus erythematosus M32.19 Active 21013409 Problem Episode of recurrent major depressive disorder, unspecified depression episode severity F33.9 Active 597392240 Problem Asymptomatic menopausal state Z78.0 Active 52286269 Problem HILARIO (obstructive sleep apnea) G47.33 Active 38573928 Problem Seborrheic keratoses L82.1 Active 960652880 Problem 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 Active 334816774 Problem Urinary frequency R35.0 Active 464347432 Problem Sciatica M54.30 Active 38029289 Problem Other chronic pain G89.29 Active 69112241 Problem Hepatitis C B19.20 Active 92796719 Problem Lumbago with sciatica, right side M54.41 Active 710208276 ALLERGIES No Information ENCOUNTERS Encounter Location Date Diagnosis [facility] [id number] [address] Jan, [facility] [id number] [address] Jan, [facility] [address] [address] Dec, [address] [place] [address] Dec, [address] [place] [address] Dec, 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 E78.2 ; Other chronic [...] involvement in systemic lupus erythematosus M32.19 [facility] [employer] [address] [place] [id number] Dec, Right renal artery stenosis I70.1 ; Other organ or system involvement in systemic lupus erythematosus M32.19 ; Hepatitis C B19.20 ; Tobacco abuse Z72.0 and Weakness R53.1 [facility] [employer] [address] [place] [id number] Dec, [address] [address] Dec, [place] [id number] [address] Dec, Other organ or system involvement in systemic lupus erythematosus M32.19 [facility] [employer] [address] [place] [id number] Dec, Right renal artery stenosis I70.1 ; Injury of right kidney, sequela S37.001S ; Tobacco abuse Z72.0 ; Systemic lupus erythematosus, unspecified SLE type, unspecified organ involvement status M32.9 ; Hepatitis C B19.20 and Candidiasis of female genitalia B37.3 [address] [place] [address] Dec, Other organ or system involvement in systemic lupus erythematosus M32.19 [facility] [address] [facility] [facility] [id number] [place] [address] Dec, Other organ or system involvement in systemic lupus erythematosus M32.19 [facility] [address] [facility] [id number] [place] [address] Dec, [facility] [address] [facility] [id number] [address] Nov, Other organ or system involvement in systemic lupus erythematosus M32.19 [facility] [address] [facility] [id number] [place] [address] Oct, Other organ or system involvement in systemic lupus erythematosus M32.19 [facility] [id number] [address] Sep, Other organ or system involvement in systemic lupus erythematosus M32.19 [facility] [address] [address] Aug, Anxiety F41.9 [facility] [id number] [address] Aug, Other organ or system involvement in systemic lupus erythematosus M32.19 [facility] [id number] [address] July, Medicare annual wellness visit, initial Z00.00 ; Anxiety F41.9 ; HILARIO (obstructive sleep apnea) G47.33 ; Hepatitis C B19.20 ; Other chronic pain G89.29 ; Asymptomatic menopausal state Z78.0 and Episode of recurrent major depressive disorder, unspecified depression episode severity F33.9 [facility] [id number] [address] July, Anxiety F41.9 [facility] [id number] [address] July, Other organ or system involvement in systemic lupus erythematosus M32.19 [facility] [address] [address] July, [address] [place] [address] [address] Jun, Other organ or system involvement in systemic lupus erythematosus M32.19 ; BMI 40.0-44.9, adult Z68.41 ; Other chronic pain G89.29 and Controlled substance agreement signed Z79.899 [facility] [address] [address] May, Sciatica M54.30 [place] [address] [address] Apr, Sciatica M54.30 [place] [address] [address] Mar, Sciatica M54.30 [address] [address] [address] Feb, Sciatica M54.30 [place] [address] [address] Jan, Sciatica M54.30 [place] [address] [address] Jan, Sciatica M54.30 [address] [address] [address] Dec, Sciatica M54.30 [place] [address] [address] Dec, Sciatica M54.30 [facility] [address] [address] Nov, 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 E78.2 ; Chronic seasonal allergic rhinitis due to other allergen J30.2 and Family history of early CAD Z82.49 [facility] [address] [address] Nov, Sciatica M54.30 [facility] [id number] [place] [address] Nov, 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 E78.2 ; Chronic seasonal allergic rhinitis due to other allergen J30.2 ; Family history of early CAD Z82.49 ; Other chronic pain G89.29 and Pain in left shoulder M25.512 [facility] [address] [address] Nov, Acute pain of left shoulder M25.512 [facility] [address] [address] Oct, Sciatica M54.30 [address] [address] [address] Oct, [place] [address] [address] Sep, Sciatica M54.30 [facility] [address] [address] Sep, Acute pain of left shoulder M25.512 [facility] [address] [address] Sep, Acute pain of left shoulder M25.512 [address] [address] [address] Aug, Sciatica M54.30 [facility] [address] [address] Aug, Sciatica M54.30 ; Tobacco abuse Z72.0 and Tobacco abuse counseling Z71.6 [place] [address] [address] Aug, Acute pain of left shoulder M25.512 [facility] [id number] [place] [address] Aug, Contusion of right shoulder, initial encounter S40.011A ; Acute pain of left shoulder M25.512 and Shortness of breath R06.02 [place] [id number] [place] [address] Aug, Lumbago with sciatica, right side M54.41 [place] [id number] [place] [address] July, [place] [id number] [place] [address] July, Lumbago with sciatica, right side M54.41 [place] [id number] [place] [address] Jun, Lumbago with sciatica, right side M54.41 [place] [id number] [place] [address] May, Lumbago with sciatica, right side M54.41 [facility] [id number] [place] [address] May, Herpes zoster without complication B02.9 [facility] [id number] [place] [address] May, Back pain M54.9 and Acute right-sided low back pain with right-sided sciatica M54.41 [place] [id number] [place] [address] Apr, [place] [id number] [place] [address] Apr, Lumbago with sciatica, right side M54.41 and Other chronic pain G89.29 [place] [id number] [place] [address] Apr, [place] [id number] [place] [address] Mar, [place] [id number] [place] [address] Mar, [facility] [id number] [place] [address] Feb, [facility] [id number] [place] [address] Jan, Urinary frequency R35.0 [facility] [id number] [place] [address] Jan, [facility] [address] [address] Dec, [facility] [id number] [place] [address] Oct, [facility] [id number] [place] [address] Sep, [facility] [id number] [place] [address] Sep, Foreign body in left foot, initial encounter S90.852A [facility] [id number] [place] [address] Aug, [facility] [id number] [place] [address] July, Sciatica M54.30 [facility] [id number] [place] [address] Jun, [facility] [id number] [place] [address] May, Osteoarthritis M19.90 [facility] [id number] [place] [address] May, [facility] [id number] [place] [address] May, Pain in right hip M25.551 [facility] [id number] [place] [address] May, Tinea corporis B35.4 [facility] [address] [place] [address] 10 Apr, 2015 Pain in right hip M25.551 [facility] [id number] [place] [address] Mar, Pain in right hip M25.551 [facility] [id number] [place] [address] Mar, [facility] [id number] [place] [address] Feb, Pain in right hip M25.551 [facility] [id number] [place] [address] Jan, Acute bronchitis, unspecified organism J20.9 and Cough R05 [facility] [id number] [place] [address] Jan, Pain in right hip M25.551 [facility] [id number] [place] [address] Dec, Pain in right hip M25.551 [facility] [id number] [place] [address] Nov, Acute bronchitis 466.0 [facility] [id number] [place] [address] Nov, [facility] [id number] [place] [address] Oct, [facility] [id number] [place] [address] Sep, [facility] [id number] [place] [address] Aug, [facility] [id number] [place] [address] July, [facility] [id number] [place] [address] 14 Jun, 2014 [facility] [place] [facility] [address] [id number] [place] [address] 13 Jun, 2014 [facility] [place] [facility] [address] [id number] [place] [address] 18 May, 2014 [facility] [place] [facility] [address] [facility] [place] [id number] [place] [address] 18 May, 2014 [facility] [place] [facility] [address] [id number] [place] [address] Apr, 2014 [facility] [place] [facility] [address] [id number] [place] [address] Apr, 2014 [facility] [place] [facility] [address] [facility] [id number] [place] [address] Apr, 2014 [facility] [place] [facility] [address] [facility] [id number] [place] [address] Apr, 2014 [facility] [place] [facility] [address] [facility] [id number] [place] [address] 06 Apr, 2014 [facility] [place] [facility] [address] [facility] [id number] [place] [address] 06 Apr, 2014 [facility] [place] [facility] [address] [facility] [id number] [place] [address] Mar, [facility] [place] [facility] [address] [facility] [id number] [place] [address] 16 Mar, 2014 [facility] [place] [facility] [address] [facility] [id number] [place] [address] Feb, [facility] [place] [facility] [address] [facility] [id number] [place] [address] Feb, [facility] [place] [facility] [address] [facility] [id number] [place] [address] Feb, [facility] [place] [facility] [address] [facility] [id number] [place] [address] Dec, [facility] [place] [facility] [address] [id number] [place] [address] Dec, [facility] [place] [facility] [address] [id number] [place] [address] Nov, [facility] [place] [facility] [address] [id number] [place] [address] Nov, [facility] [place] [facility] [address] [id number] [place] [address] Nov, [facility] [place] [facility] [address] [id number] [place] [address] Nov, [facility] [place] [facility] [address] [id number] [place] [address] Sep, [facility] [place] [facility] [address] [id number] [place] [address] Sep, [facility] [place] [facility] [address] [id number] [place] [address] Sep, [facility] [place] [facility] [address] [id number] [place] [address] Sep, [facility] [place] [facility] [address] [id number] [place] [address] Aug, [facility] [place] [facility] [address] [id number] [place] [address] Aug, [facility] [place] [facility] [address] [id number] [place] [address] Aug, [facility] [place] [facility] [address] [id number] [place] [address] Aug, [facility] [place] [facility] [address] [id number] [place] [address] July, [facility] [place] [facility] [address] [id number] [place] [address] July, [facility] [place] [facility] [address] [id number] [place] [address] Jun, [facility] [place] [facility] [address] [id number] [place] [address] Jun, [facility] [place] [facility] [address] [id number] [place] [address] Jun, [facility] [place] [facility] [address] [id number] [place] [address] Jun, [facility] [place] [facility] [address] [id number] [place] [address] Jun, [facility] [place] [facility] [address] [id number] [place] [address] Jun, [facility] [place] [facility] [address] [id number] [place] [address] Jun, [facility] [place] [facility] [address] [id number] [place] [address] Jun, [facility] [place] [facility] [address] [id number] [place] [address] May, [facility] [place] [facility] [address] [id number] [place] [address] May, [facility] [place] [facility] [address] [id number] [place] [address] May, [facility] [place] [facility] [address] [id number] [place] [address] May, [facility] [place] [facility] [address] [id number] [place] [address] May, [facility] [place] [facility] [address] [id number] [place] [address] May, [facility] [place] [facility] [address] [id number] [place] [address] Apr, [facility] [place] [facility] [address] [id number] [place] [address] Apr, [facility] [place] [facility] [address] [id number] [place] [address] 06 Apr, 2013 [facility] [address] [id number] [place] [address] Apr, [facility] [address] [id number] [place] [address] Mar, [facility] [address] [id number] [place] [address] Mar, [facility] [address] [id number] [place] [address] Mar, [facility] [address] [id number] [place] [address] Mar, [facility] [address] [id number] [place] [address] Mar, [facility] [address] [id number] [place] [address] Mar, [facility] [address] [id number] [place] [address] Feb, [facility] [address] [id number] [place] [address] Feb, [facility] [address] [id number] [place] [address] Feb, [facility] [address] [id number] [place] [address] Feb, [facility] [address] [id number] [place] [address] Feb, [facility] [place] [facility] [address] [id number] [place] [address] Feb, [facility] [place] [facility] [address] [id number] [place] [address] Feb, [facility] [place] [facility] [address] [id number] [place] [address] Feb, [facility] [place] [facility] [address] [id number] [place] [address] Feb, [facility] [place] [facility] [address] [id number] [place] [address] Feb, [facility] [place] [facility] [address] [id number] [place] [address] Feb, [facility] [place] [facility] [address] [id number] [place] [address] Feb, [facility] [place] [facility] [address] [id number] [place] [address] Jan, [facility] [place] [facility] [address] [id number] [place] [address] Jan, [facility] [place] [facility] [address] [id number] [place] [address] Jan, [facility] [place] [facility] [address] [id number] [address] Jan, [facility] [place] [facility] [address] [id number] [address] Jan, [facility] [place] [facility] [address] [id number] [place] [address] Jan, [facility] [place] [facility] [address] [id number] [address] Jan, [facility] [place] [facility] [address] [id number] [place] [address] Jan, [facility] [place] [facility] [address] [id number] [place] [address] Jan, [facility] [place] [facility] [address] [id number] [place] [address] Jan, [facility] [place] [facility] [address] [id number] [place] [address] Dec, [facility] [place] [facility] [address] [id number] [place] [address] Dec, [facility] [place] [facility] [address] [id number] [place] [address] Nov, [facility] [place] [facility] [address] [id number] [place] [address] Nov, [facility] [place] [facility] [address] [id number] [place] [address] Nov, [facility] [place] [facility] [address] [id number] [place] [address] 05 Nov, 2012 [facility] [place] [facility] [address] [id number] [place] [address] Nov, [facility] [place] [facility] [address] [id number] [place] [address] Oct, [facility] [place] [facility] [address] [id number] [place] [address] Oct, [facility] [place] [facility] [address] [id number] [place] [address] Oct, [facility] [place] [facility] [address] [id number] [place] [address] Oct, [facility] [place] [facility] [address] [id number] [place] [address] Oct, [facility] [place] [facility] [address] [id number] [place] [address] Sep, [facility] [place] [facility] [address] [id number] [place] [address] Sep, [facility] [place] [facility] [address] [id number] [place] [address] Sep, [facility] [place] [facility] [address] [id number] [place] [address] Sep, [facility] [place] [facility] [address] [id number] [place] [address] Sep, [facility] [place] [facility] [address] [id number] [place] [address] Sep, [facility] [address] [id number] [place] [address] Aug, [facility] [address] [id number] [place] [address] Aug, [facility] [address] [id number] [place] [address] July, [facility] [address] [id number] [place] [address] July, [facility] [address] [id number] [place] [address] July, [facility] [address] [id number] [place] [address] Jun, [facility] [address] [id number] [place] [address] Jun, [facility] [address] [id number] [place] [address] Jun, [facility] [address] [id number] [place] [address] Jun, [facility] [address] [id number] [place] [address] May, [facility] [place] [facility] [address] [id number] [place] [address] May, [facility] [address] [id number] [place] [address] Apr, [facility] [place] [facility] [address] [id number] [place] [address] Apr, [facility] [place] [facility] [address] [address] [id number] [place] [address] Apr, [facility] [place] [facility] [address] [id number] [address] Apr, [facility] [address] [id number] [place] [address] Apr, [facility] [address] [facility] [place] [id number] [place] [address] Apr, [facility] [address] [facility] [id number] [place] [id number] Apr, [facility] [address] [id number] [place] [address] Apr, [facility] [address] [facility] [place] [id number] [place] [address] Mar, [facility] [address] [facility] [place] [id number] [place] [address] Mar, [facility] [address] [facility] [place] [id number] [address] Mar, [facility] [address] [facility] [place] [id number] [place] [address] Mar, [facility] [address] [facility] [place] [id number] [place] [address] Jan, [facility] [address] [facility] [place] [id number] [place] [address] Jan, [facility] [address] [id number] [address] Jan, [facility] [address] [facility] [place] [id number] [address] Jan, [facility] [address] [facility] [place] [id number] [place] [address] Jan, [facility] [address] [facility] [place] [id number] [place] [address] Dec, [facility] [address] [facility] [place] [id number] [address] Dec, [facility] [place] [facility] [address] [id number] [place] [address] Dec, [facility] [place] [facility] [address] [id number] [place] [address] Dec, [facility] [place] [facility] [address] [id number] [place] [address] Nov, [facility] [place] [facility] [address] [id number] [place] [address] Oct, [facility] [place] [facility] [address] [id number] [place] [address] Oct, [facility] [place] [facility] [address] [id number] [place] [address] Oct, [facility] [place] [facility] [address] [id number] [place] [address] Oct, [facility] [place] [facility] [address] [id number] [place] [address] Oct, [facility] [place] [facility] [address] [id number] [place] [address] Sep, [facility] [place] [facility] [address] [id number] [place] [address] Sep, [facility] [place] [facility] [address] [id number] [place] [address] Aug, [facility] [place] [facility] [address] [id number] [place] [address] Aug, [facility] [place] [facility] [address] [id number] [place] [address] Aug, [facility] [place] [facility] [address] [id number] [place] [address] Aug, [facility] [place] [facility] [address] [id number] [place] [address] July, [facility] [place] [facility] [address] [id number] [place] [address] Jun, [facility] [place] [facility] [address] [id number] [place] [address] 28 May, 2011 [facility] [place] [facility] [address] [id number] [place] [address] 27 May, 2011 [facility] [place] [facility] [address] [id number] [place] [address] 12 May, 2011 [facility] [place] [facility] [address] [id number] [place] [address] 30 Mar, 2011 [facility] [place] [facility] [address] [id number] [place] [address] Feb, [facility] [place] [facility] [address] [id number] [place] [address] Feb, [facility] [place] [facility] [address] [id number] [place] [address] Jan, [facility] [place] [facility] [address] [id number] [place] [address] Jan, [facility] [place] [facility] [address] [id number] [place] [address] Jan, [facility] [place] [facility] [address] [id number] [place] [address] Jan, [facility] [place] [facility] [address] [id number] [address] 30 Jan, 2010 [facility] [place] [facility] [address] [id number] [place] [address] 20 Dec, 2009 [facility] [place] [facility] [address] [id number] [place] [address] Dec, [facility] [place] [facility] [address] [id number] [place] [address] Dec, [facility] [place] [facility] [address] [id number] [place] [address] 18 May, 2009 [facility] [place] [facility] [address] [facility] [place] [id number] [place] [address] 15 May, 2009 [facility] [address] [facility] [place] [id number] [address] 17 Apr, 2009 [facility] [address] [facility] [place] [id number] [address] Jan, [facility] [address] [facility] [place] [id number] [place] [address] 11 Apr, 2008 IMMUNIZATIONS No Known Immunizations SOCIAL HISTORY Never Assessed REASON FOR VISIT discharge medications PLAN OF CARE VITAL SIGNS MEDICATIONS Medication Instructions Dosage Frequency Start Date End Date Duration Status Warfarin Sodium 2.5 MG Orally Once a day 1 tablet 24h 30 day(s) Active Plaquenil 200 mg 1 tablet with food or milk 12h 30 days Active Amlodipine Besylate 10 MG Orally Once a day 1 tablet 24h 30 day(s) Active Hydrochlorothiazide 25 MG Orally Once a day 1 tablet in the morning 24h 30 day(s) Active Losartan Potassium 50 MG Orally Once a day 1 tablet 24h 30 day(s) Active PredniSONE 10 mg Orally [...]
--- OUTSIDE RECORDS SUMMARY | 2018-10-30 20:38 | XMS REPORT ---
Author Author CHRISTA GLORIA Organization [facility] Address [address] [place] [address] Care Team Providers Care Tutor Name Role Phone CHRISTA GLORIA Unavailable PROBLEMS Type Condition ICD9-CM Code NTR40-GS Code Onset Dates Condition Status SNOMED Code Problem Acute right-sided low back pain with right-sided sciatica M54.41 Active 220515772 Problem 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 E78.2 Active 183310159 Problem Other chronic pain G89.29 Active 11321384 Problem Systemic lupus erythematosus, unspecified SLE type, unspecified organ involvement status M32.9 Active 46352850 Problem Right renal artery stenosis I70.1 Active [id number] Problem Anxiety F41.9 Active 18404550 Problem Other organ or system involvement in systemic lupus erythematosus M32.19 Active 21925943 Problem Episode of recurrent major depressive disorder, unspecified depression episode severity F33.9 Active 407996268 Problem Asymptomatic menopausal state Z78.0 Active 11747461 Problem HILARIO (obstructive sleep apnea) G47.33 Active 01529297 Problem Seborrheic keratoses L82.1 Active 451499669 Problem 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 [id number], [place] [address] Jan, [facility] [id number] [address] Jan, [facility] [address] [address] Dec, [facility] [address], [place] [address] Dec, [facility] [id number] [place] [address] Dec, 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 E78.2 ; Other chronic [...] involvement in systemic lupus erythematosus M32.19 [facility] [address] [place] [id number] Dec, Right renal artery stenosis I70.1 ; Other organ or system involvement in systemic lupus erythematosus M32.19 ; Hepatitis C B19.20 ; Tobacco abuse Z72.0 and Weakness R53.1 [facility] [address] [place] [id number] Dec, [place] [id number] [place] [address] Dec, [facility] [place] [address] [address] Dec, Other organ or system involvement in systemic lupus erythematosus M32.19 [facility] [address] [place] [id number] Dec, Right renal artery stenosis I70.1 ; Injury of right kidney, sequela S37.001S ; Tobacco abuse Z72.0 ; Systemic lupus erythematosus, unspecified SLE type, unspecified organ involvement status M32.9 ; Hepatitis C B19.20 and Candidiasis of female genitalia B37.3 [place] [address] [address] [address] Dec, Other organ or system involvement in systemic lupus erythematosus M32.19 [facility] [id number] [address] Dec, Other organ or system involvement in systemic lupus erythematosus M32.19 [facility] [address] [address] Dec, [facility] [address] [address] Nov, Other organ or system involvement in systemic lupus erythematosus M32.19 [facility] [address] [address] Oct, Other organ or system involvement in systemic lupus erythematosus M32.19 [facility] [address] [address] Sep, Other organ or system involvement in systemic lupus erythematosus M32.19 [facility] [address] [address] Aug, [address]9 [facility] [address] [address] Aug, Other organ or system involvement in systemic lupus erythematosus M32.19 [facility] [id number] [address] July, Medicare annual wellness visit, initial Z00.00 ; Anxiety F41.9 ; HILARIO (obstructive sleep apnea) G47.33 ; Hepatitis C B19.20 ; Other chronic pain G89.29 ; Asymptomatic menopausal state Z78.0 and Episode of recurrent major depressive disorder, unspecified depression episode severity F33.9 [facility] [id number] [address] July, [address]9 [facility] [address], [place] [address] July, Other organ or system involvement in systemic lupus erythematosus M32.19 [facility] [address] [address] July, [facility] [id number] [place] [address] Jun, Other organ or system involvement in systemic lupus erythematosus M32.19 ; BMI 40.0-44.9, adult Z68.41 ; Other chronic pain G89.29 and Controlled substance agreement signed Z79.899 [facility] [address] [address] May, Sciatica M54.30 [facility] [address] [address] Apr, Sciatica M54.30 [place] [address] [address] Mar, Sciatica M54.30 [place] [address] [address] Feb, Sciatica M54.30 [facility] [address] [address] Jan, Sciatica M54.30 [place] [address] [address] Jan, Sciatica M54.30 [place] [address] [address] Dec, Sciatica M54.30 [place] [address] [address] 18 Dec, [address] [facility] [id number] [place] [address] 29 Nov, 2016 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 E78.2 ; Chronic seasonal allergic rhinitis due to other allergen J30.2 and Family history of early CAD Z82.49 [facility] [id number] [place] [address] Nov, Sciatica M54.30 [facility] [id number] [place] [address] 18 Nov, 2016 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 E78.2 ; Chronic seasonal allergic rhinitis due to other allergen J30.2 ; Family history of early CAD Z82.49 ; Other chronic pain G89.29 and Pain in left shoulder M25.512 [facility] [address] [address] 11 Nov, 2016 Acute pain of left shoulder M25.512 [facility] [address] [address] Oct, Sciatica M54.30 [place] [address] [address] Oct, [place] [address] [address] Sep, Sci[address]a M54.30 [facility] [address] [address] Sep, Acute pain of left shoulder M25.512 [facility] [address] [address] Sep, Acute pain of left shoulder M25.512 [facility] [address] [address] Aug, Sciatica M54.30 [facility] [address] [address] Aug, Sciatica M54.30 ; Tobacco abuse Z72.0 and Tobacco abuse counseling Z71.6 [facility] [address] [address] Aug, Acute pain of left shoulder M25.512 [facility] [id number] [place] [address] Aug, Contusion of right shoulder, initial encounter S40.011A ; Acute pain of left shoulder M25.512 and Shortness of breath R06.02 [facility] [address], [place] [address] Aug, Lumbago with sciatica, right side M54.41 [facility] [id number] [place] [address] July, [facility] [id number] [place] [address] July, Lumbago with sciatica, right side M54.41 [facility] [id number] [place] [address] Jun, Lumbago with sciatica, right side M54.41 [facility] [id number] [place] [address] May, Lumbago with sciatica, right side M54.41 [facility] [id number] [place] [address] May, Herpes zoster without complication B02.9 [facility] [id number] [place] [address] May, Back pain M54.9 and Acute right-sided low back pain with right-sided sciatica M54.41 [place] [id number] [place] [address] Apr, [facility] [id number] [place] [address] Apr, Lumbago with sciatica, right side M54.41 and Other chronic pain G89.29 [facility] [id number] [place] [address] Apr, [facility] [id number] [place] [address] Mar, [facility] [id number] [place] [address] Mar, [facility] [id number] [place] [address] 08 Feb, 2016 [facility] [id number] [place] [address] Jan, Urinary frequency R35.0 [facility] [id number] [place] [address] Jan, [facility] [address] [address] Dec, [facility] [id number] [place] [address] Oct, [facility] [id number] [place] [address] Sep, [facility] [id number] [place] [address] Sep, Foreign body in left foot, initial encounter S90.852A [facility] [id number] [place] [address] Aug, [facility] [id number] [place] [address] July, Sciatica M54.30 [facility] [id number] [place] [address] Jun, [facility] [id number] [place] [address] May, Osteoarthritis M19.90 [facility] [id number] [place] [address] May, [facility] [id number] [place] [address] May, 2016 Pain in right hip M25.551 [facility] [address] [place] [address] May, Tinea corporis B35.4 [facility] [id number] [place] [address] 10 Apr, 2015 Pain in right hip M25.551 [facility] [id number] [place] [address] Mar, Pain in right hip M25.551 [facility] [id number] [place] [address] Mar, [facility] [id number] [place] [address] Feb, Pain in right hip M25.551 [facility] [id number] [place] [address] Jan, Acute bronchitis, unspecified organism J20.[address] [facility] [id number] [place] [address] Jan, Pain in right hip M25.551 [facility] [id number] [place] [address] Dec, Pain in right hip M25.551 [facility] [id number] [place] [address] Nov, Acute bronchitis 466.0 [facility] [id number] [place] [address] Nov, [facility] [id number] [place] [address] Oct, [facility] [id number] [place] [address] Sep, [facility] [id number] [place] [address] Aug, [facility] [id number] [place] [address] July, [facility] [id number] [place] [address] Jun, [facility] [place] [facility] [address] [id number] [place] [address] 13 Jun, 2014 [facility] [place] [facility] [address] [id number] [place] [address] 18 May, 2014 [facility] [place] [facility] [address] [id number] [place] [address] 18 May, 2014 [facility] [place] [facility] [address] [id number] [place] [address] Apr, 2014 [facility] [place] [facility] [address] [id number] [place] [address] Apr, [facility] [place] [facility] [address] [id number] [place] [address] Apr, 2014 [facility] [place] [facility] [address] [facility] [id number] [place] [address] Apr, [facility] [place] [facility] [address] [id number] [place] [address] 06 Apr, 2014 [facility] [place] [facility] [address] [id number] [place] [address] 06 Apr, 2014 [facility] [place] [facility] [address] [facility] [id number] [place] [address] Mar, [facility] [place] [facility] [address] [facility] [id number] [place] [address] 16 Mar, 2014 [facility] [place] [facility] [address] [id number] [address] 15 Feb, 2014 [facility] [place] [facility] [address] [id number] [place] [address] Feb, [facility] [place] [facility] [address] [facility] [id number] [place] [address] Feb, [facility] [place] [facility] [address] [facility] [id number] [place] [address] Dec, [facility] [place] [facility] [address] [id number] [place] [address] Dec, [facility] [place] [facility] [address] [id number] [place] [address] Nov, [facility] [place] [facility] [address] [id number] [place] [address] Nov, [facility] [place] [facility] [address] [id number] [place] [address] Nov, [facility] [place] [facility] [address] [id number] [place] [address] Nov, [facility] [place] [facility] [address] [id number] [place] [address] Sep, [facility] [place] [facility] [address] [id number] [place] [address] Sep, [facility] [place] [facility] [address] [id number] [place] [address] Sep, [facility] [place] [facility] [address] [id number] [place] [address] Sep, [facility] [place] [facility] [address] [id number] [place] [address] Aug, [facility] [place] [facility] [address] [id number] [place] [address] Aug, [facility] [place] [facility] [address] [id number] [place] [address] Aug, [facility] [place] [facility] [address] [id number] [place] [address] Aug, [facility] [place] [facility] [address] [id number] [place] [address] July, [facility] [place] [facility] [address] [id number] [place] [address] July, [facility] [place] [facility] [address] [id number] [place] [address] Jun, [facility] [place] [facility] [address] [id number] [place] [address] Jun, [facility] [place] [facility] [address] [id number] [place] [address] Jun, [facility] [place] [facility] [address] [id number] [place] [address] Jun, [facility] [place] [facility] [address] [id number] [place] [address] Jun, [facility] [place] [facility] [address] [id number] [place] [address] Jun, [facility] [place] [facility] [address] [id number] [place] [address] Jun, [facility] [place] [facility] [address] [id number] [place] [address] Jun, [facility] [place] [facility] [address] [id number] [place] [address] May, [facility] [place] [facility] [address] [id number] [place] [address] May, [facility] [place] [facility] [address] [id number] [place] [address] May, [facility] [place] [facility] [address] [id number] [place] [address] May, [facility] [place] [facility] [address] [id number] [place] [address] May, [facility] [place] [facility] [address] [id number] [place] [address] May, [facility] [place] [facility] [address] [id number] [place] [address] Apr, [facility] [place] [facility] [address] [id number] [place] [address] Apr, [facility] [place] [facility] [address] [id number] [address] Apr, [facility] [address] [id number] [place] [address] Apr, [facility] [address] [id number] [place] [address] Mar, [facility] [address] [id number] [place] [address] Mar, [facility] [address] [id number] [place] [address] Mar, [facility] [address] [id number] [place] [address] Mar, [facility] [address] [id number] [place] [address] Mar, [facility] [address] [id number] [place] [address] Mar, [facility] [address] [id number] [place] [address] Feb, [facility] [address] [id number] [place] [address] Feb, [facility] [address] [facility] [id number] [place] [address] Feb, [facility] [address] [id number] [place] [address] Feb, [facility] [place] [facility] [address] [id number], [place] [address] Feb, [facility] [place] [facility] [address] [id number] [place] [address] Feb, [facility] [place] [facility] [address] [id number] [place] [address] Feb, [facility] [address] [facility] [id number], [place] [address] Feb, [facility] [place] [facility] [address] [id number] [place] [address] Feb, [facility] [place] [facility] [address] [id number] [place] [address] Feb, [facility] [place] [facility] [address] [id number] [place] [address] Feb, [facility] [place] [facility] [address] [id number] [place] [address] Feb, [facility] [place] [facility] [address] [id number] [place] [address] Jan, [facility] [place] [facility] [address] [id number] [place] [address] Jan, [facility] [place] [facility] [address] [id number] [place] [address] Jan, [facility] [place] [facility] [address] [id number] [place] [address] Jan, [facility] [place] [facility] [address] [id number] [place] [address] Jan, [facility] [place] [facility] [address] [id number] [place] [address] Jan, [facility] [place] [facility] [address] [id number] [place] [address] Jan, [facility] [place] [facility] [address] [id number] [place] [address] Jan, [facility] [place] [facility] [address] [id number] [place] [address] Jan, [facility] [place] [facility] [address] [id number] [place] [address] Jan, [facility] [place] [facility] [address] [id number] [place] [address] Dec, [facility] [place] [facility] [address] [id number] [place] [address] Dec, [facility] [place] [facility] [address] [id number] [place] [address] Nov, [facility] [place] [facility] [address] [id number] [place] [address] Nov, [facility] [place] [facility] [address] [id number] [place] [address] Nov, [facility] [place] [facility] [address] [id number] [place] [address] Nov, [facility] [place] [facility] [address] [id number] [place] [address] Nov, [facility] [place] [facility] [address] [id number] [place] [address] Oct, [facility] [place] [facility] [address] [id number] [place] [address] Oct, [facility] [place] [facility] [address] [id number] [place] [address] Oct, [facility] [place] [facility] [address] [id number] [place] [address] Oct, [facility] [place] [facility] [address] [id number] [place] [address] Oct, [facility] [place] [facility] [address] [id number] [place] [address] Sep, [facility] [place] [facility] [address] [id number] [place] [address] Sep, [facility] [place] [facility] [address] [id number] [place] [address] Sep, [facility] [place] [facility] [address] [id number] [place] [address] Sep, [facility] [place] [facility] [address] [id number] [place] [address] Sep, [facility] [place] [facility] [address] [id number] [place] [address] Sep, [facility] [address] [id number] [place] [address] Aug, [facility] [address] [id number] [place] [address] Aug, [facility] [address] [id number] [place] [address] July, [facility] [address] [id number] [place] [address] July, [facility] [address] [id number] [place] [address] July, [facility] [address] [id number] [place] [address] Jun, [facility] [address] [id number] [place] [address] Jun, [facility] [address] [id number] [place] [address] 16 Jun, 2012 [facility] [address] [id number] [place] [address] Jun, [facility] [address] [id number] [place] [address] May, [facility] [address] [id number] [place] [address] May, [facility] [address] [id number] [place] [address] Apr, [facility] [address] [id number] [place] [address] Apr, [facility] [address] [id number] [place] [address] Apr, [facility] [address] [id number] [place] [address] Apr, [facility] [address] [id number] [place] [address] Apr, [facility] [place] [facility] [address] [id number] [place] [address] Apr, [facility] [place] [facility] [address] [id number] [place] [id number] Apr, [facility] [place] [facility] [address] [id number] [place] [address] Apr, [facility] [address] [id number] [place] [address] Mar, [facility] [address] [id number] [place] [address] Mar, [facility] [address] [id number] [place] [address] Mar, [facility] [place] [facility] [address] [id number] [place] [address] Mar, [facility] [address] [id number] [place] [address] Jan, [facility] [place] [facility] [address] [id number] [place] [address] Jan, [facility] [address] [id number] [address] Jan, [facility] [place] [facility] [address] [id number], [place] [address] Jan, [facility] [place] [facility] [address] [id number] [place] [address] Jan, [facility] [place] [facility] [address] [id number] [place] [address] Dec, [facility] [place] [facility] [address] [id number] [place] [address] Dec, [facility] [place] [facility] [address] [id number] [place] [address] Dec, [facility] [place] [facility] [address] [id number] [place] [address] Dec, [facility] [place] [facility] [address] [id number] [place] [address] Nov, [facility] [place] [facility] [address] [id number] [place] [address] Oct, [facility] [place] [facility] [address] [id number] [place] [address] Oct, [facility] [place] [facility] [address] [id number] [place] [address] Oct, [facility] [place] [facility] [address] [id number] [place] [address] Oct, [facility] [place] [facility] [address] [id number] [place] [address] Oct, [facility] [place] [facility] [address] [id number] [place] [address] Sep, [facility] [place] [facility] [address] [id number] [place] [address] Sep, [facility] [place] [facility] [address] [id number] [place] [address] Aug, [facility] [place] [facility] [address] [id number] [place] [address] Aug, [facility] [place] [facility] [address] [id number] [place] [address] Aug, [facility] [place] [facility] [address] [id number] [place] [address] Aug, [facility] [place] [facility] [address] [id number] [place] [address] July, [facility] [place] [facility] [address] [id number] [place] [address] Jun, [facility] [place] [facility] [address] [id number] [place] [address] 28 May, 2011 [facility] [place] [facility] [address] [id number] [place] [address] 27 May, 2011 [facility] [place] [facility] [address] [id number] [place] [address] May, [facility] [place] [facility] [address] [id number] [place] [address] 30 Mar, 2011 [facility] [place] [facility] [address] [id number] [place] [address] Feb, [facility] [place] [facility] [address] [id number] [place] [address] Feb, [facility] [place] [facility] [address] [id number] [place] [address] Jan, [facility] [place] [facility] [address] [id number] [place] [address] Jan, [facility] [place] [facility] [address] [id number] [place] [address] Jan, [facility] [place] [facility] [address] [id number] [place] [address] Jan, [facility] [place] [facility] [address] [id number] [place] [address] 30 Jan, 2010 [facility] [place] [facility] [address] [id number] [place] [address] 20 Dec, 2009 [facility] [place] [facility] [address] [id number] [place] [address] Dec, [facility] [place] [facility] [address] [id number] [place] [address] Dec, [facility] [place] [facility] [address] [id number] [place] [address] 18 May, 2009 [facility] [place] [facility] [address] [id number] [place] [address] May, [facility] [address] [facility] [id number] [address] [address], [address] [facility] [address] [facility] [id number], [place] [address] Jan, [facility] [address] [facility] [id number], [place] [address] 11 Apr, 2008 IMMUNIZATIONS No Known Immunizations SOCIAL HISTORY Never Assessed REASON FOR VISIT reschedule of in home PT PLAN OF CARE VITAL SIGNS MEDICATIONS Unknown [...]
--- OUTSIDE RECORDS SUMMARY | 2018-10-30 20:39 | XMS REPORT ---
Author Author STANFORD PENDLETON [facility] Address [address] [place] [address] Care Team Providers Care [employer] Supervisor Name Role Phone STANFORD PENDLETON Unavailable PROBLEMS Type Condition ICD9-CM Code IXJ01-ST Code Onset Dates Condition Status SNOMED Code Problem Acute right-sided low back pain with right-sided sciatica M54.41 Active 490627388 Problem 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 E78.2 Active 399416212 Problem Other chronic pain G89.29 Active 99151214 Problem Systemic lupus erythematosus, unspecified SLE type, unspecified organ involvement status M32.9 Active 37165001 Problem Right renal artery stenosis I70.1 Active [id number] Problem Anxiety F41.9 Active 41279628 Problem Other organ or system involvement in systemic lupus erythematosus M32.19 Active 42821573 Problem Episode of recurrent major depressive disorder, unspecified depression episode severity F33.9 Active 463770172 Problem Asymptomatic menopausal state Z78.0 Active 48203521 Problem HILARIO (obstructive sleep apnea) G47.33 Active 13247267 Problem Seborrheic keratoses L82.1 Active 214146877 Problem 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 Active 317854167 Problem Urinary frequency R35.0 Active 377976602 Problem Sciatica M54.30 Active 73965074 Problem Other chronic pain G89.29 Active 65121849 Problem Hepatitis C B19.20 Active 44777353 Problem Lumbago with sciatica, right side M54.41 Active 713343550 ALLERGIES Substance Reaction Event Type Date Status Cymbalta drowsiness Drug Allergy Dec, Active ENCOUNTERS Encounter Location Date Diagnosis [facility] [address] [facility] [id number] [place] [address] Jan, Via [facility] [address] [place] [id number] Dec, Right renal artery stenosis I70.1 ; Other organ or system involvement in systemic lupus erythematosus M32.19 ; Hepatitis C B19.20 ; Tobacco abuse Z72.0 and Weakness R53.1 [facility] [address] [place] [id number] Dec, [facility] [id number] [address] Dec, [facility] [id number] [place] [address] Dec, Other organ or system involvement in systemic lupus erythematosus M32.19 [facility] [address] [place] [id number] Dec, Right renal artery stenosis I70.1 ; Injury of right kidney, sequela S37.001S ; Tobacco abuse Z72.0 ; Systemic lupus erythematosus, unspecified SLE type, unspecified organ involvement status M32.9 ; Hepatitis C B19.20 and Candidiasis of female genitalia B37.3 [facility] [address] [address] Dec, Other organ or system involvement in systemic lupus erythematosus M32.19 [facility] [address] [address] Dec, Other organ or system involvement in systemic lupus erythematosus M32.19 [facility] [address] [address] Dec, [facility] [address] [address] Nov, Other organ or system involvement in systemic lupus erythematosus M32.19 [facility] [address] [address] Oct, Other organ or system involvement in systemic lupus erythematosus M32.19 [facility] [address] [address] Sep, Other organ or system involvement in systemic lupus erythematosus M32.19 [facility] [address] [address] Aug, Anxiety F41.9 [address] [place] [id number] [place] [address] Aug, Other organ or system involvement in systemic lupus erythematosus M32.19 [facility] [id number] [place] [address] July, Medicare annual wellness visit, initial Z00.00 ; Anxiety F41.9 ; HILARIO (obstructive sleep apnea) G47.33 ; Hepatitis C B19.20 ; Other chronic pain G89.29 ; Asymptomatic menopausal state Z78.0 and Episode of recurrent major depressive disorder, unspecified depression episode severity F33.9 [address] [place] [id number] [place] [address] July, Anxiety F41.9 [address] [place] [id number] [place] [address] July, Other organ or system involvement in systemic lupus erythematosus M32.19 [place] [id number] [place] [address] July, [place] [id number] [place] [address] Jun, Other organ or system involvement in systemic lupus erythematosus M32.19 ; BMI 40.0-44.9, adult Z68.41 ; Other chronic pain G89.29 and Controlled substance agreement signed Z79.899 [address] [address] May, Sciatica M54.30 [address] [place] [id number] [place] [address] Apr, Sciatica M54.30 [place] [id number] [place] [address] Mar, Sciatica M54.30 [place] [id number] [place] [address] 13 Feb, 2017 Sciatica M54.30 [facility] [id number] [place] [address] 15 Jan, 2017 Sciatica M54.30 [facility] [id number] [place] [address] 14 Jan, 2017 Sciatica M54.30 [facility] [id number] [place] [address] 19 Dec, 2016 Sciatica M54.30 [address] [place] [id number] [place] [address] 18 Dec, 2016 Sciatica M54.30 [address] [place] [id number] [place] [address] 29 Nov, 2016 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 E78.2 ; Chronic seasonal allergic rhinitis due to other allergen J30.2 and Family history of early CAD Z82.49 [address] [place] [id number] [place] [address] Nov, Sciatica M54.30 [address] [place] [id number] [place] [address] 18 Nov, 2016 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 E78.2 ; Chronic seasonal allergic rhinitis due to other allergen J30.2 ; Family history of early CAD Z82.49 ; Other chronic pain G89.29 and Pain in left shoulder M25.512 [address] [place] [id number] [place] [address] 11 Nov, 2016 Acute pain of left shoulder M25.512 [address] [place] [id number] [place] [address] Oct, Sciatica M54.30 [facility] [id number] [place] [address] Oct, [facility] [id number] [place] [address] Sep, Sciatica M54.30 [address] [place] [id number] [place] [address] Sep, Acute pain of left shoulder M25.512 [address] [place] [id number] [place] [address] Sep, Acute pain of left shoulder M25.512 [address] [place] [id number] [place] [address] Aug, Sciatica M54.30 [place] [address] [address] Aug, Sciatica M54.30 ; Tobacco abuse Z72.0 and Tobacco abuse counseling Z71.6 [place] [id number] [place] [address] Aug, Acute pain of left shoulder M25.512 [facility] [id number] [place] [address] Aug, Contusion of right shoulder, initial encounter S40.011A ; Acute pain of left shoulder M25.512 and Shortness of breath R06.02 [address] [place] [id number] [place] [address] Aug, Lumbago with sciatica, right side M54.41 [address] [place] [id number] [place] [address] July, [place] [id number] [place] [address] July, Lumbago with sciatica, right side M54.41 [address] [place] [id number] [place] [address] Jun, Lumbago with sciatica, right side M54.41 [place] [id number] [place] [address] May, Lumbago with sciatica, right side M54.41 [facility] [id number] [place] [address] May, Herpes zoster without complication B02.9 [facility] [id number] [place] [address] May, Back pain M54.9 and Acute right-sided low back pain with right-sided sciatica M54.41 [facility] [address] [address] Apr, [facility] [address] [address] Apr, Lumbago with sciatica, right side M54.41 and Other chronic pain G89.29 [facility] [id number] [place] [address] Apr, [facility] [address] [address] Mar, [facility] [id number] [place] [address] Mar, [facility] [id number] [place] [address] Feb, [facility] [id number] [place] [address] Jan, Urinary frequency R35.0 [facility] [id number] [place] [address] Jan, [facility] [id number] [place] [address] Dec, [facility] [address] [address] Oct, [facility] [id number] [place] [address] Sep, [facility] [id number] [place] [address] Sep, Foreign body in left foot, initial encounter S90.852A [facility] [id number] [place] [address] Aug, [facility] [address] [address] July, Sciatica M54.30 [address] [address] Jun, [facility] [address] [address] May, Osteoarthritis M19.90 [address] [address] May, [address] [place] [address] [address] May, Pain in right hip M25.551 [facility] [address] [address] May, Tinea corporis B35.4 [address] [place] [address] [address] Apr, Pain in right hip M25.551 [address] [id number] [place] [address] Mar, Pain in right hip M25.551 [address] [place] [id number] [place] [address] Mar, [facility] [id number] [place] [address] Feb, Pain in right hip M25.551 [facility] [address] [address] Jan, Acute bronchitis, unspecified organism J20.9 and Cough R05 [address] [address] Jan, Pain in right hip M25.551 [facility] [address] [facility] [id number] [place] [address] Dec, Pain in right hip M25.551 [facility] [address] [id number] [place] [address] Nov, Acute bronchitis 466.0 [facility] [address] [facility] [id number] [place] [address] Nov, [facility] [address] [id number] [place] [address] Oct, [facility] [address] [facility] [id number] [place] [address], [place] [address] Sep, [facility] [id number] [address] Aug, [facility] [id number] [place] [address], [place] [address] July, [facility] [id number] [address] Jun, [facility] [address] [address] Jun, [facility] [address] [address] May, [facility] [address] [address] May, [facility] [address] [facility] [id number] [address] Apr, [facility] [id number] [address] Apr, [facility] [address] [facility] [id number] [address] Apr, [facility] [address] [address] Apr, 2014 [facility] [place] [facility] [address] [id number] [place] [address] Apr, [facility] [place] [facility] [address] [id number] [place] [address] Apr, [facility] [place] [facility] [address] [id number] [place] [address] Mar, [facility] [place] [facility] [address] [id number] [place] [address] Mar, [facility] [place] [facility] [address] [id number] [place] [address] Feb, [facility] [place] [facility] [address] [id number] [place] [address] Feb, [facility] [place] [facility] [address] [id number] [place] [address] Feb, [facility] [place] [facility] [address] [id number] [place] [address] Dec, [facility] [place] [facility] [address] [id number] [place] [address] Dec, [facility] [place] [facility] [address] [id number] [place] [address] Nov, [facility] [place] [facility] [address] [id number] [place] [address] Nov, [facility] [place] [facility] [address] [id number] [place] [address] Nov, [facility] [place] [facility] [address] [id number] [place] [address] Nov, [facility] [place] [facility] [address] [id number] [place] [address] Sep, [facility] [place] [facility] [address] [id number] [place] [address] Sep, [facility] [place] [facility] [address] [id number] [place] [address] Sep, [facility] [place] [facility] [address] [id number] [place] [address] Sep, [facility] [place] [facility] [address] [id number] [place] [address] Aug, [facility] [place] [facility] [address] [id number] [place] [address] Aug, [facility] [place] [facility] [address] [id number] [place] [address] Aug, [facility] [place] [facility] [address] [id number] [place] [address] Aug, [facility] [place] [facility] [address] [id number] [place] [address] July, [facility] [place] [facility] [address] [id number] [place] [address] July, [facility] [place] [facility] [address] [id number] [place] [address] Jun, [facility] [place] [facility] [address] [id number] [place] [address] Jun, [facility] [place] [facility] [address] [id number] [place] [address] Jun, [facility] [place] [facility] [address] [id number] [place] [address] Jun, [facility] [place] [facility] [address] [id number] [place] [address] Jun, [facility] [place] [facility] [address] [id number] [place] [address] Jun, [facility] [place] [facility] [address] [id number] [place] [address] Jun, [facility] [place] [facility] [address] [id number] [place] [address] Jun, [facility] [place] [facility] [address] [id number] [place] [address] May, [facility] [place] [facility] [address] [id number] [place] [address] May, [facility] [place] [facility] [address] [id number] [place] [address] May, [facility] [place] [facility] [address] [id number] [place] [address] May, [facility] [place] [facility] [address] [id number] [place] [address] May, [facility] [place] [facility] [address] [id number] [place] [address] May, [facility] [place] [facility] [address] [id number] [place] [address] Apr, [facility] [place] [facility] [address] [id number] [place] [address] Apr, [facility] [place] [facility] [address] [id number] [place] [address] Apr, [facility] [place] [facility] [address] [id number] [place] [address] Apr, [facility] [place] [facility] [address] [id number] [place] [address] Mar, [facility] [place] [facility] [address] [id number] [place] [address] Mar, [facility] [place] [facility] [address] [id number] [place] [address] Mar, [facility] [place] [facility] [address] [id number] [place] [address] Mar, [facility] [place] [facility] [address] [id number] [place] [address] Mar, [facility] [place] [facility] [address] [id number] [place] [address] Mar, [facility] [address] [id number] [place] [address] Feb, [facility] [address] [id number] [place] [address] Feb, [facility] [address] [id number] [place] [address] Feb, [facility] [address] [id number] [place] [address] Feb, [facility] [address] [id number] [place] [address] Feb, [facility] [address] [id number] [place] [address] Feb, [facility] [address] [id number] [place] [address] Feb, [facility] [address] [id number] [place] [address] Feb, [facility] [address] [id number] [place] [address] Feb, [facility] [address] [facility] [id number] [place] [address] Feb, [facility] [address] [id number] [place] [address] Feb, [facility] [address] [id number] [place] [address] Feb, [facility] [place] [facility] [address] [id number] [place] [address] Jan, [facility] [place] [facility] [address] [id number] [place] [address] Jan, [facility] [address] [id number] [place] [address] Jan, [facility] [place] [facility] [address] [id number] [place] [address] Jan, [facility] [place] [facility] [address] [id number] [place] [address] Jan, [facility] [place] [facility] [address] [id number] [place] [address] Jan, [facility] [place] [facility] [address] [id number] [place] [address] Jan, [facility] [place] [facility] [address] [id number] [place] [address] Jan, [facility] [place] [facility] [address] [id number] [place] [address] Jan, [facility] [place] [facility] [address] [id number] [place] [address] Jan, [facility] [place] [facility] [address] [id number] [place] [address] Dec, [facility] [place] [facility] [address] [id number] [place] [address] Dec, [facility] [place] [facility] [address] [id number] [place] [address] Nov, [facility] [place] [facility] [address] [id number] [place] [address] 25 Nov, 2012 [facility] [place] [facility] [address] [id number] [address] 09 Nov, 2012 [facility] [place] [facility] [address] [id number] [place] [address] 05 Nov, 2012 [facility] [place] [facility] [address] [id number] [place] [address] Nov, [facility] [place] [facility] [address] [id number] [place] [address] Oct, [facility] [place] [facility] [address] [id number] [address] Oct, [facility] [address] [id number] [place] [address] Oct, [facility] [place] [facility] [address] [id number] [place] [address] Oct, [facility] [place] [facility] [address] [id number] [place] [address] Oct, [facility] [place] [facility] [address] [id number] [place] [address] Sep, [facility] [place] [facility] [address] [id number] [place] [address] Sep, [facility] [place] [facility] [address] [id number] [place] [address] Sep, [facility] [place] [facility] [address] [id number] [place] [address] Sep, [facility] [place] [facility] [address] [id number] [place] [address] Sep, [facility] [place] [facility] [address] [id number] [place] [address] Sep, [facility] [place] [facility] [address] [id number] [place] [address] Aug, [facility] [place] [facility] [address] [id number] [place] [address] Aug, [facility] [place] [facility] [address] [id number] [place] [address] July, [facility] [place] [facility] [address] [id number] [place] [address] July, [facility] [place] [facility] [address] [id number] [place] [address] July, [facility] [place] [facility] [address] [id number] [place] [address] Jun, [facility] [place] [facility] [address] [id number] [place] [address] 18 Jun, 2012 [facility] [address] [id number] [place] [address] 16 Jun, 2012 [facility] [place] [facility] [address] [id number] [place] [address] Jun, [facility] [address] [id number] [place] [address] May, [facility] [address] [id number] [place] [address] May, [facility] [address] [id number] [place] [address] Apr, [facility] [address] [id number] [place] [address] Apr, [facility] [address] [id number] [place] [address] Apr, [facility] [address] [id number] [place] [address] Apr, [facility] [address] [id number] [place] [address] Apr, [facility] [address] [id number] [place] [address] Apr, [facility] [address] [facility] [id number] [id number] Apr, [facility] [place] [facility] [address] [id number] [place] [address] Apr, [facility] [place] [facility] [address] [id number] [place] [address] Mar, [facility] [place] [facility] [address] [id number] [place] [address] Mar, [facility] [place] [facility] [address] [id number] [place] [address] Mar, [facility] [place] [facility] [address] [id number] [place] [address] Mar, [facility] [place] [facility] [address] [id number] [place] [address] Jan, [facility] [place] [facility] [address] [id number] [place] [address] Jan, [facility] [place] [facility] [address] [id number] [place] [address] Jan, [facility] [place] [facility] [address] [id number] [place] [address] Jan, [facility] [place] [facility] [address] [id number] [place] [address] Jan, [facility] [place] [facility] [address] [id number] [place] [address] Dec, [facility] [place] [facility] [address] [id number] [place] [address] Dec, [facility] [place] [facility] [address] [id number] [place] [address] Dec, [facility] [place] [facility] [address] [id number] [place] [address] Dec, [facility] [place] [facility] [address] [id number] [place] [address] Nov, [facility] [place] [facility] [address] [id number] [place] [address] Oct, [facility] [place] [facility] [address] [id number] [place] [address] Oct, [facility] [place] [facility] [address] [id number] [place] [address] Oct, [facility] [place] [facility] [address] [id number] [place] [address] Oct, [facility] [place] [facility] [address] [id number] [place] [address] Oct, [facility] [address] [id number] [place] [id number] Sep, [facility] [address] [id number] [place] [address] Sep, [facility] [address] [id number] [place] [address] Aug, [facility] [address] [id number] [place] [address] Aug, [facility] [address] [id number] [place] [address] Aug, [facility] [address] [id number] [place] [address] Aug, [facility] [address] [id number] [place] [address] July, [facility] [address] [id number] [place] [address] Jun, [facility] [address] [id number] [place] [address] May, [facility] [address] [id number] [place] [address] May, [facility] [address] [id number] [place] [address] May, [facility] [address] [id number] [place] [address] Mar, [facility] [place] [facility] [address] [id number] [place] [address] Feb, [facility] [place] [facility] [address] [id number] [place] [address] Feb, [facility] [address] [id number] [place] [address] Jan, [facility] [id number] [address] Jan, [facility] [id number] [address] Jan, [facility] [id number] [address] Jan, [facility] [id number] [address] Jan, [facility] [id number] [address] Dec, [facility] [id number] [address] Dec, [facility] [id number] [address] Dec, [facility] [id number] [address] May, [facility] [id number] [address] May, [facility] [id number] [address] Apr, [facility] [id number] [address] Jan, [facility] [id number] [address] Apr, IMMUNIZATIONS No Known Immunizations SOCIAL HISTORY Never Assessed REASON FOR VISIT Penitentiary Discharge PLAN OF CARE Activity Details Follow Up prn Reason: VITAL SIGNS MEDICATIONS Medication Instructions Dosage Frequency Start Date End Date Duration Status Losartan Potassium 50 MG Orally Once a day 1 tablet 24h 30 day(s) Active Hydrochlorothiazide 25 MG Orally Once a day 1 tablet in the morning 24h 30 day(s) Active Warfarin Sodium 2.5 MG Orally Once a day 1 tablet 24h 30 day(s) Active Plaquenil 200 mg 1 tablet with food or milk 12h Active Nystatin [id number] UNIT/GM Externally Twice a day till healed and prn 1 application to affected area Dec, Active Imodium A-D 2 MG Orally after loos stools, not to exceed 4 tabs in one day 1 tablet as needed Active Zocor 40 MG 1 tablet 24h Nov, Not-Taking Amlodipine Besylate 10 MG Orally Once a day 1 tablet 24h 30 day(s) Active Tylenol 325 MG Orally every 4 hrs 2 tablets as needed 4h Active Pomona 5-325 MG Orally every 4 hrs PRN 1 tablet Dec, Active PredniSONE 10 MG Orally Once a day 1 tablet 24h 30 Active RESULTS No Results PROCEDURES Procedure Date Ordered Result Body Site [facility] VISIT ESTABLISHED PATIENT Jan 13, 2018 INSTRUCTIONS MEDICATIONS ADMINISTERED No Known Medications [...]
--- OUTSIDE RECORDS SUMMARY | 2018-10-30 20:39 | XMS REPORT ---
Author Author STANFORD PENDLETON Organization [facility] Address [address] [place] [address] Care Team Providers Care Tube Knitter Name Role Phone STANFORD PENDLETON Unavailable PROBLEMS Type Condition ICD9-CM Code FYC62-IY Code Onset Dates Condition Status SNOMED Code Problem Acute right-sided low back pain with right-sided sciatica M54.41 Active 197077038 Problem 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 E78.2 Active 177323603 Problem Other chronic pain G89.29 Active 55049278 Problem Systemic lupus erythematosus, unspecified SLE type, unspecified organ involvement status M32.9 Active 67532856 Problem Right renal artery stenosis I70.1 Active [id number] Problem Anxiety F41.9 Active 05709346 Problem Other organ or system involvement in systemic lupus erythematosus M32.19 Active 78740952 Problem Episode of recurrent major depressive disorder, unspecified depression episode severity F33.9 Active 695701499 Problem Asymptomatic menopausal state Z78.0 Active 70512370 Problem HILARIO (obstructive sleep apnea) G47.33 Active 73309452 Problem Seborrheic keratoses L82.1 Active 397852332 Problem 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 Active 414043549 Problem Urinary frequency R35.0 Active 907490622 Problem Sciatica M54.30 Active 33826560 Problem Other chronic pain G89.29 Active 82281029 Problem Hepatitis C B19.20 Active 79386494 Problem Lumbago with sciatica, right side M54.41 Active 234246873 ALLERGIES No Information ENCOUNTERS Encounter Location Date Diagnosis [facility] [address] [facility] [id number] [address] Dec, Other organ or system involvement in systemic lupus erythematosus M32.19 [facility] [address] [place] [id number] Dec, Right renal artery stenosis I70.1 ; Injury of right kidney, sequela S37.001S ; Tobacco abuse Z72.0 ; Systemic lupus erythematosus, unspecified SLE type, unspecified organ involvement status M32.9 ; Hepatitis C B19.20 and Candidiasis of female genitalia B37.3 [place] [address] [address] Dec, Other organ or system involvement in systemic lupus erythematosus M32.19 [place] [address] [place] [id number] [place] [address] Dec, Other organ or system involvement in systemic lupus erythematosus M32.19 [place] [address] [place] [id number] [place] [address] Dec, [place] [address] [place] [id number] [place] [address] Nov, Other organ or system involvement in systemic lupus erythematosus M32.19 [place] [address] [id number] [address] Oct, Other organ or system involvement in systemic lupus erythematosus M32.19 [place] [address] [id number] [address] Sep, Other organ or system involvement in systemic lupus erythematosus M32.19 [place] [address] [address] Aug, Anxiety F41.9 [place] [address] [address] Aug, Other organ or system involvement in systemic lupus erythematosus M32.19 [place] [address] [address] July, Medicare annual wellness visit, initial Z00.00 ; Anxiety F41.9 ; HILARIO (obstructive sleep apnea) G47.33 ; Hepatitis C B19.20 ; Other chronic pain G89.29 ; Asymptomatic menopausal state Z78.0 and Episode of recurrent major depressive disorder, unspecified depression episode severity F33.9 [facility] [address] [place] [id number] [place] [address] July, Anxiety F41.9 [facility] [address] [place] [id number] [place] [address] July, Other organ or system involvement in systemic lupus erythematosus M32.19 [facility] [address] [place] [id number] [place] [address] July, [facility] [address] [place] [id number] [place] [address] Jun, 2018 Other organ or system involvement in systemic lupus erythematosus M32.19 ; BMI 40.0-44.9, adult Z68.41 ; Other chronic pain G89.29 and Controlled substance agreement signed Z79.899 [facility] [address] [place] [id number] [place] [address] May, Sciatica M54.30 [facility] [address] [place] [id number] [place] [address] Apr, Sciatica M54.30 [facility] [address] [place] [id number] [place] [address] Mar, Sciatica M54.30 [facility] [address] [place] [id number] [place] [address] Feb, Sciatica M54.30 [facility] [address] [place] [id number] [place] [address] 15 Jan, 2017 Sciatica M54.30 [facility] [address] [place] [id number] [place] [address] 14 Jan, 2017 Sciatica M54.30 [facility] [address] [place] [id number] [place] [address] Dec, Sciatica M54.30 [facility] [address] [place] [id number] [place] [address] 18 Dec, 2016 Sciatica M54.30 [place] [address] [place] [id number] [place] [address] 29 Nov, 2016 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 E78.2 ; Chronic seasonal allergic rhinitis due to other allergen J30.2 and Family history of early CAD Z82.49 [place] [address] [place] [id number] [place] [address] 21 Nov, 2016 Sciatica M54.30 [place] [address] [address] 18 Nov, 2016 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 E78.2 ; Chronic seasonal allergic rhinitis due to other allergen J30.2 ; Family history of early CAD Z82.49 ; Other chronic pain G89.29 and Pain in left shoulder M25.512 [place] [address] [place] [id number] [place] [address] 11 Nov, 2016 Acute pain of left shoulder M25.512 [place] [address] [address] Oct, Sciatica M54.30 [place] [address] [address] Oct, [place] [address] [address] Sep, Sciatica M54.30 [place] [address] [place] [id number] [place] [address] Sep, Acute pain of left shoulder M25.512 [place] [address] [place] [id number] [place] [address] Sep, Acute pain of left shoulder M25.512 [place] [address] [address] Aug, Sciatica M54.30 [place] [address] [place] [id number] [place] [address] 09 Aug, 2016 Sciatica M54.30 ; Tobacco abuse Z72.0 and Tobacco abuse counseling Z71.6 [place] [address] [place] [id number] [place] [address] Aug, Acute pain of left shoulder M25.512 [facility] [place] [address] [address] Aug, Contusion of right shoulder, initial encounter S40.011A ; Acute pain of left shoulder M25.512 and Shortness of breath R06.02 [place] [address] [address] Aug, Lumbago with sciatica, right side M54.41 [place] [address] [address] July, [place] [address] [address] July, Lumbago with sciatica, right side M54.41 [place] [address] [address] Jun, Lumbago with sciatica, right side M54.41 [place] [address] [address] May, Lumbago with sciatica, right side M54.41 [facility] [place] [address] [place] [id number] [place] [address] May, Herpes zoster without complication B02.9 [facility] [place] [address] [place] [id number] [place] [address] May, Back pain M54.9 and Acute right-sided low back pain with right-sided sciatica M54.41 [place] [address] [address] Apr, [place] [address] [address] Apr, Lumbago with sciatica, right side M54.41 and Other chronic pain G89.29 [facility] [address] [place] [address] Apr, [facility] [address] [place] [id number] [place] [address] Mar, [facility] [address] [place] [id number] [place] [address] Mar, [facility] [address] [place] [id number] [place] [address] Feb, [facility] [address] [place] [id number] [place] [address] Jan, Urinary frequency R35.0 [facility] [address] [place] [id number] [place] [address] Jan, [facility] [address] [place] [id number] [place] [address] Dec, [facility] [address] [place] [id number] [place] [address] Oct, [facility] [address] [place] [id number] [place] [address] Sep, [facility] [address] [place] [id number] [place] [address] Sep, Foreign body in left foot, initial encounter S90.852A [facility] [address] [place] [id number] [place] [address] Aug, [facility] [address] [place] [id number] [place] [address] July, Sciatica M54.30 [facility] [address] [place] [id number] [place] [address] Jun, [facility] [address] [place] [id number] [place] [address] May, Osteoarthritis M19.90 [facility] [address] [place] [id number] [place] [address] May, [facility] [address] [place] [address] May, Pain in right hip M25.551 [facility] [address] [place] [address] May, Tinea corporis B35.4 [facility] [address] [place] [address] [place] [address] 10 Apr, 2015 Pain in right hip M25.551 [facility] [address] [place] [address] [place] [address] Mar, Pain in right hip M25.551 [facility] [address] [place] [id number] [place] [address] Mar, [facility] [address] [place] [id number] [place] [address] Feb, Pain in right hip M25.551 [facility] [address] [place] [address] [place] [address] Jan, Acute bronchitis, unspecified organism J20.9 and Cough R05 [facility] [address] [place] [address] [place] [address] Jan, Pain in right hip M25.551 [facility] [address] [place] [id number] [place] [address] Dec, Pain in right hip M25.551 [facility] [address] [place] [id number] [place] [address] Nov, Acute bronchitis 466.0 [facility] [address] [place] [id number] [place] [address] Nov, [facility] [address] [place] [id number] [place] [address] Oct, [facility] [address] [place] [id number] [place] [address] Sep, [facility] [place] [facility] [address] [id number] [place] [address] Aug, [facility] [place] [facility] [address] [id number] [place] [address] July, [facility] [place] [facility] [address] [id number] [place] [address] Jun, [facility] [place] [facility] [address] [id number] [place] [address] Jun, [facility] [place] [facility] [address] [id number] [place] [address] May, [facility] [place] [facility] [address] [id number] [place] [address] May, [facility] [place] [facility] [address] [place] [address] Apr, [facility] [place] [facility] [address] [id number] [place] [address] Apr, [facility] [place] [facility] [address] [place] [id number] [place] [address] Apr, [facility] [place] [facility] [address] [id number] [place] [address] Apr, [facility] [place] [facility] [address] [place] [id number] [place] [address] Apr, [facility] [place] [facility] [address] [id number] [address] Apr, [facility] [place] [facility] [address] [id number], [place] [address] Mar, [facility] [place] [facility] [address] [id number], [place] [address] Mar, [facility] [place] [facility] [address] [id number], [place] [address] Feb, [facility] [place] [facility] [address] [id number] [place] [address] Feb, [facility] [place] [facility] [address] [id number] [place] [address] Feb, [facility] [place] [facility] [address] [id number] [place] [address] Dec, [facility] [place] [facility] [address] [id number] [place] [address] Dec, [facility] [place] [facility] [address] [id number] [place] [address] Nov, [facility] [place] [facility] [address] [id number] [place] [address] Nov, [facility] [place] [facility] [address] [id number] [place] [address] Nov, [facility] [place] [facility] [address] [id number] [place] [address] Nov, [facility] [place] [facility] [address] [id number] [place] [address] Sep, [facility] [place] [facility] [address] [id number] [place] [address] Sep, [facility] [place] [facility] [address] [id number] [place] [address] Sep, [facility] [place] [facility] [address] [id number] [place] [address] Sep, [facility] [place] [facility] [address] [id number] [place] [address] Aug, [facility] [place] [facility] [address] [id number] [place] [address] Aug, [facility] [place] [facility] [address] [id number] [place] [address] Aug, [facility] [place] [facility] [address] [id number] [place] [address] Aug, [facility] [place] [facility] [address] [id number] [place] [address] July, [facility] [place] [facility] [address] [id number] [place] [address] July, [facility] [place] [facility] [address] [id number] [place] [address] Jun, [facility] [place] [facility] [address] [id number] [place] [address] Jun, [facility] [place] [facility] [address] [id number] [place] [address] Jun, [facility] [place] [facility] [address] [id number] [place] [address] Jun, [facility] [place] [facility] [address] [id number] [place] [address] Jun, [facility] [place] [facility] [address] [id number] [place] [address] Jun, [facility] [place] [facility] [address] [id number] [place] [address] Jun, [facility] [place] [facility] [address] [id number] [place] [address] Jun, [facility] [place] [facility] [address] [id number] [place] [address] May, [facility] [place] [facility] [address] [id number] [place] [address] May, [facility] [place] [facility] [address] [id number] [place] [address] May, [facility] [place] [facility] [address] [id number] [place] [address] May, [facility] [place] [facility] [address] [id number] [place] [address] May, [facility] [place] [facility] [address] [id number] [place] [address] May, [facility] [address] [id number] [place] [address] Apr, [facility] [place] [facility] [address] [id number] [place] [address] Apr, [facility] [place] [facility] [address] [id number] [place] [address] Apr, [facility] [place] [facility] [address] [id number] [place] [address] Apr, [facility] [place] [facility] [address] [id number] [place] [address] Mar, [facility] [place] [facility] [address] [id number] [place] [address] Mar, [facility] [place] [facility] [address] [id number] [place] [address] Mar, [facility] [address] [id number] [place] [address] Mar, [facility] [place] [facility] [address] [id number] [place] [address] Mar, [facility] [address] [id number] [place] [address] Mar, [facility] [place] [facility] [address] [id number] [place] [address] Feb, [facility] [place] [facility] [address] [id number] [place] [address] Feb, [facility] [place] [facility] [address] [id number] [place] [address] Feb, [facility] [place] [facility] [address] [id number] [place] [address] Feb, [facility] [place] [facility] [address] [id number] [place] [address] Feb, [facility] [place] [facility] [address] [id number] [place] [address] Feb, [facility] [place] [facility] [address] [id number] [place] [address] Feb, [facility] [place] [facility] [address] [id number] [place] [address] Feb, [facility] [place] [facility] [address] [id number] [place] [address] Feb, [facility] [place] [facility] [address] [id number] [place] [address] Feb, [facility] [place] [facility] [address] [id number] [place] [address] Feb, [facility] [place] [facility] [address] [id number] [place] [address] Feb, [facility] [place] [facility] [address] [id number] [address] Jan, [facility] [place] [facility] [address] [id number], [place] [address] Jan, [facility] [place] [facility] [address] [id number], [place] [address] Jan, [facility] [place] [facility] [address] [id number], [place] [address] Jan, [facility] [place] [facility] [address] [id number], [place] [address] Jan, [facility] [place] [facility] [address] [id number], [place] [address] Jan, [facility] [place] [facility] [address] [id number], [place] [address] Jan, [facility] [place] [facility] [address] [id number], [place] [address] Jan, [facility] [place] [facility] [address] [id number] [place] [address] Jan, [facility] [place] [facility] [address] [id number] [place] [address] Jan, [facility] [place] [facility] [address] [id number] [place] [address] Dec, [facility] [place] [facility] [address] [id number] [place] [address] Dec, [facility] [place] [facility] [address] [id number] [place] [address] Nov, [facility] [place] [facility] [address] [id number] [place] [address] Nov, [facility] [place] [facility] [address] [id number] [place] [address] Nov, [facility] [place] [facility] [address] [id number] [place] [address] Nov, [facility] [place] [facility] [address] [id number] [place] [address] Nov, [facility] [place] [facility] [address] [id number] [place] [address] Oct, [facility] [place] [facility] [address] [id number] [place] [address] Oct, [facility] [place] [facility] [address] [id number] [place] [address] Oct, [facility] [place] [facility] [address] [id number] [place] [address] Oct, [facility] [place] [facility] [address] [id number] [place] [address] Oct, [facility] [place] [facility] [address] [id number] [place] [address] Sep, [facility] [place] [facility] [address] [id number] [place] [address] Sep, [facility] [place] [facility] [address] [id number] [place] [address] Sep, [facility] [address] [id number] [place] [address] Sep, [facility] [place] [facility] [address] [id number] [place] [address] Sep, [facility] [place] [facility] [address] [id number] [place] [address] Sep, [facility] [address] [id number] [place] [address] Aug, [facility] [place] [facility] [address] [id number] [place] [address] Aug, [facility] [address] [id number] [place] [address] July, [facility] [address] [id number] [place] [address] July, [facility] [address] [id number] [place] [address] July, [facility] [address] [id number] [place] [address] Jun, [facility] [place] [facility] [address] [id number] [place] [address] Jun, [facility] [place] [facility] [address] [id number] [place] [address] 16 Jun, 2012 [facility] [place] [facility] [address] [id number] [place] [address] Jun, [facility] [place] [facility] [address] [id number] [place] [address] May, [facility] [place] [facility] [address] [id number] [place] [address] May, [facility] [place] [facility] [address] [id number] [place] [address] Apr, [facility] [address] [id number] [place] [address] Apr, [facility] [address] [id number] [place] [address] Apr, [facility] [address] [id number] [place] [address] Apr, [facility] [address] [id number] [place] [address] Apr, [facility] [address] [id number] [place] [address] Apr, [facility] [address] [id number] [place] [id number] Apr, [facility] [address] [id number] [place] [address] Apr, [facility] [address] [id number] [place] [address] Mar, [facility] [address] [id number] [place] [address] Mar, [facility] [address] [id number] [place] [address] Mar, [facility] [address] [id number] [place] [address] Mar, [facility] [address] [id number] [place] [address] Jan, [facility] [address] [id number] [place] [address] Jan, [facility] [address] [id number] [place] [address] Jan, [facility] [address] [id number] [place] [address] Jan, [facility] [place] [facility] [address] [id number] [place] [address] Jan, [facility] [place] [facility] [address] [id number] [place] [address] Dec, [facility] [place] [facility] [address] [id number] [place] [address] Dec, [facility] [place] [facility] [address] [id number] [place] [address] Dec, [facility] [place] [facility] [address] [id number] [place] [address] Dec, [facility] [place] [facility] [address] [id number] [place] [address] Nov, [facility] [place] [facility] [address] [id number] [place] [address] Oct, [facility] [place] [facility] [address] [id number] [place] [address] Oct, [facility] [place] [facility] [address] [id number] [place] [address] Oct, [facility] [place] [facility] [address] [id number] [place] [address] Oct, [facility] [place] [facility] [address] [id number] [place] [address] Oct, [facility] [place] [facility] [address] [id number] [place] [address] Sep, [facility] [place] [facility] [address] [id number] [place] [address] Sep, [facility] [place] [facility] [address] [id number] [place] [address] Aug, [facility] [place] [facility] [address] [id number] [place] [address] Aug, [facility] [place] [facility] [address] [id number] [place] [address] Aug, [facility] [place] [facility] [address] [id number] [place] [address] Aug, [facility] [place] [facility] [address] [id number] [place] [address] July, [facility] [place] [facility] [address] [id number] [place] [address] Jun, [facility] [place] [facility] [address] [id number] [place] [address] May, [facility] [place] [facility] [address] [id number] [place] [address] May, [facility] [place] [facility] [address] [id number] [place] [address] May, [facility] [place] [facility] [address] [id number] [place] [address] Mar, [facility] [place] [facility] [address] [id number] [place] [address] Feb, [facility] [place] [facility] [address] [id number] [place] [address] Feb, [facility] [place] [facility] [address] [id number] [place] [address] Jan, [facility] [place] [facility] [address] [id number] [address] Jan, [facility] [place] [facility] [address] [id number], [place] [address] 18 Jan, 2011 [facility] [place] [facility] [address] [id number] [place] [address] Jan, [facility] [place] [facility] [address] [id number], [place] [address] 30 Jan, 2010 [facility] [place] [facility] [address] [id number] [place] [address] Dec, [facility] [place] [facility] [address] [id number], [place] [address] 13 Dec, 2009 [facility] [address] [id number], [place] [address] Dec, [facility] [address] [id number], [place] [address] 18 May, 2009 [facility] [address] [id number], [place] [address] May, [facility] [address] [id number], [place] [address] Apr, [facility] [address] [id number], [place] [address] Jan, [facility] [address] [id number], [place] [address] Apr, IMMUNIZATIONS No Known Immunizations SOCIAL HISTORY Never Assessed REASON FOR VISIT Controlled Med Refill PLAN OF CARE VITAL SIGNS MEDICATIONS Medication Instructions Dosage Frequency Start Date End Date Duration Status Wells 5-325 MG Orally every 4 hrs PRN 1 tablet Dec, Active RESULTS No Results PROCEDURES No Known [...]
--- OUTSIDE RECORDS SUMMARY | 2018-10-30 20:40 | XMS REPORT ---
Author Author STANFORD PENDLETON [facility] Address [address] [place] [address] Care Team Providers Care Field [employer] Contractor Name Role Phone STANFORD PENDLETON Unavailable PROBLEMS Type Condition ICD9-CM Code LLF89-KI Code Onset Dates Condition Status SNOMED Code Problem Acute right-sided low back pain with right-sided sciatica M54.41 Active 683378400 Problem 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 E78.2 Active 016971234 Problem Other chronic pain G89.29 Active 34595071 Problem Systemic lupus erythematosus, unspecified SLE type, unspecified organ involvement status M32.9 Active 80251625 Problem Right renal artery stenosis I70.1 Active [id number] Problem Anxiety F41.9 Active 09716114 Problem Other organ or system involvement in systemic lupus erythematosus M32.19 Active 79154320 Problem Episode of recurrent major depressive disorder, unspecified depression episode severity F33.9 Active 472254782 Problem Asymptomatic menopausal state Z78.0 Active 90684078 Problem HILARIO (obstructive sleep apnea) G47.33 Active 20721390 Problem Seborrheic keratoses L82.1 Active 644863231 Problem 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 Active 424379643 Problem Urinary frequency R35.0 Active 275225151 Problem Sciatica M54.30 Active 65039210 Problem Other chronic pain G89.29 Active 82593213 Problem Hepatitis C B19.20 Active 47832831 Problem Lumbago with sciatica, right side M54.41 Active 724921212 ALLERGIES Substance Reaction Event Type Date Status Cymbalta drowsiness Drug Allergy Dec, Active ENCOUNTERS Encounter Location Date Diagnosis [facility] [address] [facility] [id number] [address] Dec, Other organ or system involvement in systemic lupus erythematosus M32.19 [facility] [address] [place], [place] [id number] Dec, Right renal artery stenosis I70.1 ; Injury of right kidney, sequela S37.001S ; Tobacco abuse Z72.0 ; Systemic lupus erythematosus, unspecified SLE type, unspecified organ involvement status M32.9 ; Hepatitis C B19.20 and Candidiasis of female genitalia B37.3 [place] [id number], [place] [address] Dec, Other organ or system involvement in systemic lupus erythematosus M32.19 [place] [address] [place] [id number] [place] [address] Dec, Other organ or system involvement in systemic lupus erythematosus M32.19 [place] [address] [place] [id number] [place] [address] Dec, [place] [address] [place] [id number] [place] [address] Nov, Other organ or system involvement in systemic lupus erythematosus M32.19 [place] [address] [place] [address] [id number] [address] Oct, Other organ or system involvement in systemic lupus erythematosus M32.19 [place] [address], [place] [address] Sep, Other organ or system involvement in systemic lupus erythematosus M32.19 [place] [address], [place] [address] Aug, Anxiety F41.9 [place] [address], [place] [address] Aug, Other organ or system involvement in systemic lupus erythematosus M32.19 [place] [address], [place] [address] July, Medicare annual wellness visit, initial Z00.00 ; Anxiety F41.9 ; HILARIO (obstructive sleep apnea) G47.33 ; Hepatitis C B19.20 ; Other chronic pain G89.29 ; Asymptomatic menopausal state Z78.0 and Episode of recurrent major depressive disorder, unspecified depression episode severity F33.9 [facility] [id number] [place] [address] July, Anxiety F41.9 [facility] [id number] [place] [address] July, Other organ or system involvement in systemic lupus erythematosus M32.19 [facility] [address] [address] July, [place] [address] [address] Jun, Other organ or system involvement in systemic lupus erythematosus M32.19 ; BMI 40.0-44.9, adult Z68.41 ; Other chronic pain G89.29 and Controlled substance agreement signed Z79.899 [place] [address] [address] May, Sciatica M54.30 [place] [address] [place] [id number] [place] [address] Apr, Sciatica M54.30 [place] [address] [address] Mar, Sciatica M54.30 [place] [address] [place] [id number] [place] [address] Feb, Sciatica M54.30 [facility] [id number] [place] [address] 15 Jan, 2017 Sciatica M54.30 [place] [address] [id number] [place] [address] 14 Jan, 2017 Sciatica M54.30 [facility] [address] [id number] [place] [address] Dec, Sciatica M54.30 [facility] [address] [address] Dec, Sciatica M54.30 [facility] [id number] [place] [address] Nov, 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 E78.2 ; Chronic seasonal allergic rhinitis due to other allergen J30.2 and Family history of early CAD Z82.49 [place] [address] [place] [id number] [place] [address] Nov, Sciatica M54.30 [place] [address] [address] Nov, 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 E78.2 ; Chronic seasonal allergic rhinitis due to other allergen J30.2 ; Family history of early CAD Z82.49 ; Other chronic pain G89.29 and Pain in left shoulder M25.512 [place] [address] [place] [id number] [place] [address] Nov, Acute pain of left shoulder M25.512 [place] [address] [address] Oct, Sciatica M54.30 [place] [address] [address] Oct, [place] [address] [place] [id number] [place] [address] Sep, Sciatica M54.30 [place] [address] [place] [id number] [place] [address] Sep, Acute pain of left shoulder M25.512 [place] [address] [place] [id number] [place] [address] Sep, Acute pain of left shoulder M25.512 [place] [address] [address] Aug, Sciatica M54.30 [place] [address] [place] [id number] [place] [address] Aug, Sciatica M54.30 ; Tobacco abuse Z72.0 and Tobacco abuse counseling Z71.6 [place] [address] [place] [id number] [place] [address] Aug, Acute pain of left shoulder M25.512 [facility] [place] [address] [place] [id number] [place] [address] Aug, Contusion of right shoulder, initial encounter S40.011A ; Acute pain of left shoulder M25.512 and Shortness of breath R06.02 [place] [address] [place] [id number] [place] [address] Aug, Lumbago with sciatica, right side M54.41 [place] [address] [address] July, [place] [address] [address] July, Lumbago with sciatica, right side M54.41 [place] [address] [place] [id number] [place] [address] Jun, Lumbago with sciatica, right side M54.41 [place] [address] [place] [id number] [place] [address] May, Lumbago with sciatica, right side M54.41 [facility] [place] [address] [place] [id number] [place] [address] May, Herpes zoster without complication B02.9 [facility] [place] [address] [place] [id number] [place] [address] May, Back pain M54.9 and Acute right-sided low back pain with right-sided sciatica M54.41 [place] [address] [place] [id number] [place] [address] Apr, [place] [address] [place] [id number] [place] [address] Apr, Lumbago with sciatica, right side M54.41 and Other chronic pain G89.29 [facility] [id number] [place] [address] Apr, [facility] [address] [id number] [place] [address] Mar, [facility] [address] [id number] [place] [address] Mar, [facility] [address] [place] [id number] [place] [address] Feb, [facility] [id number] [place] [address] Jan, Urinary frequency R35.0 [facility] [address] [place] [id number] [place] [address] Jan, [facility] [address] [address] Dec, [facility] [address] [place] [id number] [place] [address] Oct, [facility] [address] [place] [id number] [place] [address] Sep, [facility] [address] [id number] [place] [address] Sep, Foreign body in left foot, initial encounter S90.852A [facility] [address] [place] [id number] [place] [address] Aug, [facility] [address] [place] [id number] [place] [address] July, Sciatica M54.30 [facility] [address] [place] [id number] [place] [address] Jun, [facility] [address] [place] [id number] [place] [address] May, Osteoarthritis M19.90 [facility] [address] [place] [id number] [place] [address] May, [facility] [address] [id number] [place] [address] May, Pain in right hip M25.551 [facility] [address] [place] [id number] [place] [address] May, Tinea corporis B35.4 [facility] [address] [place] [id number] [place] [address] 10 Apr, 2015 Pain in right hip M25.551 [facility] [address] [address] Mar, Pain in right hip M25.551 [place] [address] [place] [id number] [place] [address] Mar, [facility] [address] [address] Feb, Pain in right hip M25.551 [facility] [address] [place] [id number] [place] [address] Jan, Acute bronchitis, unspecified organism J20.9 and Cough R05 [facility] [address] [place] [id number] [place] [address] Jan, Pain in right hip M25.551 [facility] [address] [place] [id number] [place] [address] Dec, Pain in right hip M25.551 [facility] [address] [place] [id number] [place] [address] Nov, Acute bronchitis 466.0 [facility] [address] [place] [id number] [place] [address] Nov, [facility] [address] [place] [id number] [place] [address] Oct, [facility] [place] [facility] [address] [id number] [place] [address] Sep, [facility] [place] [facility] [address] [id number] [place] [address] Aug, [facility] [place] [facility] [address] [id number] [place] [address] July, [facility] [place] [facility] [address] [id number] [place] [address] Jun, [facility] [place] [facility] [address] [id number] [place] [address] Jun, [facility] [place] [facility] [address] [id number] [place] [address] May, [facility] [place] [facility] [address] [id number] [place] [address] May, [facility] [place] [facility] [address] [id number] [place] [address] Apr, [facility] [place] [facility] [address] [id number] [place] [address] Apr, [facility] [place] [facility] [address] [id number] [place] [address] Apr, [facility] [place] [facility] [address] [id number] [place] [address] Apr, [facility] [place] [facility] [address] [id number] [place] [address] Apr, [facility] [place] [facility] [address] [id number] [place] [address] Apr, [facility] [place] [facility] [address] [id number] [place] [address] Mar, [facility] [place] [facility] [address] [id number] [place] [address] Mar, [facility] [place] [facility] [address] [id number] [place] [address] Feb, [facility] [place] [facility] [address] [id number] [place] [address] Feb, [facility] [place] [facility] [address] [id number] [place] [address] Feb, [facility] [place] [facility] [address] [id number] [place] [address] Dec, [facility] [place] [facility] [address] [id number] [place] [address] Dec, [facility] [place] [facility] [address] [id number] [place] [address] Nov, [facility] [place] [facility] [address] [id number] [place] [address] Nov, [facility] [place] [facility] [address] [id number] [place] [address] Nov, [facility] [place] [facility] [address] [id number] [place] [address] Nov, [facility] [place] [facility] [address] [id number] [place] [address] Sep, [facility] [place] [facility] [address] [id number] [place] [address] Sep, [facility] [place] [facility] [address] [id number] [place] [address] Sep, [facility] [place] [facility] [address] [id number] [place] [address] Sep, [facility] [place] [facility] [address] [id number] [place] [address] Aug, [facility] [place] [facility] [address] [id number] [place] [address] Aug, [facility] [place] [facility] [address] [id number] [place] [address] Aug, [facility] [place] [facility] [address] [id number] [place] [address] Aug, [facility] [place] [facility] [address] [id number] [place] [address] July, [facility] [place] [facility] [address] [id number] [place] [address] July, [facility] [place] [facility] [address] [id number] [place] [address] Jun, [facility] [place] [facility] [address] [id number] [place] [address] Jun, [facility] [place] [facility] [address] [id number] [place] [address] Jun, [facility] [place] [facility] [address] [id number] [place] [address] Jun, [facility] [place] [facility] [address] [id number] [place] [address] Jun, [facility] [place] [facility] [address] [id number] [place] [address] Jun, [facility] [place] [facility] [address] [id number] [place] [address] Jun, [facility] [place] [facility] [address] [id number] [place] [address] Jun, [facility] [place] [facility] [address] [id number] [place] [address] May, [facility] [place] [facility] [address] [id number] [place] [address] May, [facility] [place] [facility] [address] [id number] [place] [address] May, [facility] [place] [facility] [address] [id number] [place] [address] May, [facility] [place] [facility] [address] [id number] [place] [address] May, [facility] [place] [facility] [address] [id number] [place] [address] May, [facility] [place] [facility] [address] [id number] [place] [address] Apr, [facility] [place] [facility] [address] [id number] [place] [address] Apr, [facility] [place] [facility] [address] [id number] [place] [address] Apr, [facility] [place] [facility] [address] [id number] [place] [address] Apr, [facility] [place] [facility] [address] [id number] [place] [address] Mar, [facility] [place] [facility] [address] [id number] [place] [address] Mar, [facility] [place] [facility] [address] [id number] [place] [address] Mar, [facility] [place] [facility] [address] [id number] [place] [address] Mar, [facility] [place] [facility] [address] [id number] [place] [address] Mar, [facility] [place] [facility] [address] [id number], [place] [address] Mar, [facility] [place] [facility] [address] [id number], [place] [address] Feb, [facility] [place] [facility] [address] [id number] [place] [address] Feb, [facility] [place] [facility] [address] [id number] [place] [address] Feb, [facility] [place] [facility] [address] [id number] [place] [address] Feb, [facility] [place] [facility] [address] [id number] [place] [address] Feb, 2012 [facility] [address] [id number] [place] [address] Feb, [facility] [address] [id number] [place] [address] Feb, [facility] [address] [id number] [place] [address] Feb, [facility] [address] [id number] [place] [address] Feb, [facility] [address] [id number] [place] [address] Feb, [facility] [address] [id number] [place] [address] Feb, [facility] [address] [id number] [place] [address] Feb, [facility] [address] [id number] [place] [address] Jan, [facility] [address] [id number] [place] [address] Jan, [facility] [address] [id number] [place] [address] Jan, [facility] [address] [id number] [place] [address] Jan, [facility] [address] [id number] [place] [address] Jan, [facility] [place] [facility] [address] [id number] [place] [address] Jan, [facility] [address] [id number] [place] [address] Jan, [facility] [address] [id number] [place] [address] Jan, [facility] [place] [facility] [address] [id number] [place] [address] Jan, [facility] [place] [facility] [address] [id number] [place] [address] Jan, [facility] [place] [facility] [address] [id number] [place] [address] Dec, [facility] [place] [facility] [address] [id number] [place] [address] Dec, [facility] [place] [facility] [address] [id number] [place] [address] Nov, [facility] [place] [facility] [address] [id number] [place] [address] Nov, [facility] [place] [facility] [address] [id number] [place] [address] Nov, [facility] [place] [facility] [address] [id number] [place] [address] Nov, [facility] [place] [facility] [address] [id number] [place] [address] Nov, [facility] [place] [facility] [address] [id number] [place] [address] Oct, [facility] [place] [facility] [address] [id number] [place] [address] Oct, [facility] [place] [facility] [address] [id number] [place] [address] Oct, [facility] [place] [facility] [address] [id number] [place] [address] Oct, [facility] [place] [facility] [address] [id number] [place] [address] Oct, [facility] [place] [facility] [address] [id number] [place] [address] Sep, [facility] [place] [facility] [address] [id number] [place] [address] Sep, [facility] [address] [id number] [place] [address] Sep, [facility] [address] [id number] [place] [address] Sep, [facility] [address] [id number] [place] [address] Sep, [facility] [address] [id number] [place] [address] Sep, [facility] [address] [id number] [place] [address] Aug, [facility] [address] [id number] [place] [address] Aug, [facility] [address] [id number] [place] [address] July, [facility] [address] [id number] [place] [address] July, [facility] [address] [id number] [place] [address] July, [facility] [address] [id number] [place] [address] Jun, [facility] [address] [id number] [place] [address] Jun, [facility] [place] [facility] [address] [id number] [place] [address] 16 Jun, 2012 [facility] [place] [facility] [address] [id number] [place] [address] Jun, [facility] [place] [facility] [address] [id number] [place] [address] May, [facility] [address] [id number] [place] [address] May, [facility] [address] [id number] [place] [address] Apr, [facility] [place] [facility] [address] [id number] [place] [address] Apr, [facility] [place] [facility] [address] [id number] [place] [address] Apr, [facility] [place] [facility] [address] [id number] [place] [address] Apr, [facility] [address] [id number] [place] [address] Apr, [facility] [place] [facility] [address] [id number] [place] [address] Apr, [facility] [place] [facility] [address] [facility] [id number] [place] [id number] Apr, [facility] [address] [id number], [place] [address] Apr, [facility] [place] [facility] [address] [id number] [place] [address] Mar, [facility] [address] [id number] [place] [address] Mar, [facility] [address] [id number], [place] [address] Mar, [facility] [place] [facility] [address] [id number], [place] [address] Mar, [facility] [place] [facility] [address] [id number] [place] [address] Jan, [facility] [place] [facility] [address] [id number] [place] [address] Jan, [facility] [place] [facility] [address] [id number], [place] [address] Jan, [facility] [place] [facility] [address] [id number], [place] [address] Jan, [facility] [place] [facility] [address] [id number] [place] [address] Jan, [facility] [place] [facility] [address] [id number] [place] [address] Dec, [facility] [place] [facility] [address] [id number] [place] [address] Dec, [facility] [place] [facility] [address] [id number] [place] [address] Dec, [facility] [place] [facility] [address] [id number] [place] [address] Dec, [facility] [place] [facility] [address] [id number] [place] [address] Nov, [facility] [place] [facility] [id number] [place] [address] Oct, [facility] [place] [facility] [address] [id number] [place] [address] Oct, [facility] [place] [facility] [address] [facility] [id number] [place] [address] Oct, [facility] [place] [facility] [address] [facility] [id number] [place] [address] Oct, [facility] [place] [facility] [address] [facility] [id number] [place] [address] Oct, [facility] [place] [facility] [address] [facility] [id number] [place] [address] Sep, [facility] [place] [facility] [address] [id number] [place] [address] Sep, [facility] [place] [facility] [address] [facility] [id number] [place] [address] Aug, [facility] [place] [facility] [address] [facility] [id number] [place] [address] Aug, [facility] [place] [facility] [address] [id number] [place] [address] Aug, [facility] [place] [facility] [address] [id number] [place] [address] Aug, [facility] [place] [facility] [address] [id number] [place] [address] July, [facility] [place] [facility] [address] [id number] [place] [address] Jun, [facility] [place] [facility] [address] [id number] [place] [address] May, [facility] [place] [facility] [address] [id number] [place] [address] May, [facility] [place] [facility] [address] [id number] [place] [address] May, [facility] [place] [facility] [address] [id number] [place] [address] Mar, [facility] [place] [facility] [address] [id number] [place] [address] Feb, [facility] [place] [facility] [address] [id number] [place] [address] Feb, [facility] [place] [facility] [address] [id number] [place] [address] Jan, [facility] [place] [facility] [address] [id number] [place] [address] Jan, [facility] [place] [facility] [address] [id number] [place] [address] 18 Jan, 2011 [facility] [place] [facility] [address] [id number] [place] [address] Jan, [facility] [place] [facility] [address] [id number] [place] [address] 30 Jan, 2010 [facility] [place] [facility] [address] [id number] [place] [address] Dec, [facility] [address] [facility] [id number] [address] Dec, [facility] [id number] [address] Dec, [facility] [address] [id number] [address] May, [facility] [id number] [address] May, [facility] [id number] [address] Apr, [facility] [id number] [address] Jan, [facility] [id number], [place] [address] Apr, IMMUNIZATIONS No Known Immunizations SOCIAL HISTORY Never Assessed REASON FOR VISIT New [place] Admission --ROBERT Navarro PLAN OF CARE Activity Details Follow Up prn Reason: VITAL SIGNS MEDICATIONS Medication Instructions Dosage Frequency Start Date End Date Duration Status Hydrochlorothiazide 25 MG Orally Once a day 1 tablet in the morning 24h 30 day(s) Active Warfarin Sodium 2.5 MG Orally Once a day 1 tablet 24h 30 day(s) Active Tylenol 325 MG Orally every 4 hrs 2 tablets as needed 4h Active Nystatin [id number] UNIT/GM Externally Twice a day till healed and prn 1 application to affected area Dec, Active Imodium A-D 2 MG Orally after loos stools, not to exceed 4 tabs in one day 1 tablet as needed Active Losartan Potassium 50 MG Orally Once a day 1 tablet 24h 30 day(s) Active PredniSONE 10 MG Orally Once a day 1 tablet 24h 30 Active [place] 5-325 MG Orally every 4 hrs PRN 1 tablet Dec, Active Amlodipine Besylate 10 MG Orally Once a day 1 tablet 24h 30 day(s) Not-Taking Plaquenil 200 mg 1 tablet with food or milk 12h Active Zocor 40 MG 1 tablet 24h Nov, Not-Taking RESULTS No Results PROCEDURES Procedure Date Ordered Result Body Site [facility] VISIT ESTABLISHED PATIENT Dec 30, 2017 INSTRUCTIONS MEDICATIONS ADMINISTERED No Known Medications [...]
--- OUTSIDE RECORDS SUMMARY | 2018-10-30 20:40 | XMS REPORT ---
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 Tender Name Role Phone FAIZAN CHRISTA Unavailable PROBLEMS Type Condition ICD9-CM Code CMM63-LS Code Onset Dates Condition Status SNOMED Code Problem Acute right-sided low back pain with right-sided sciatica M54.41 Active 192077376 Problem 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 E78.2 Active 032011110 Problem Other chronic pain G89.29 Active 72440686 Problem Systemic lupus erythematosus, unspecified SLE type, unspecified organ involvement status M32.9 Active 71513007 Problem Right renal artery stenosis I70.1 Active [id number] Problem Anxiety F41.9 Active 34286423 Problem Other organ or system involvement in systemic lupus erythematosus M32.19 Active 19197716 Problem Episode of recurrent major depressive disorder, unspecified depression episode severity F33.9 Active 268776992 Problem Asymptomatic menopausal state Z78.0 Active 33481589 Problem HILARIO (obstructive sleep apnea) G47.33 Active 46071098 Problem Seborrheic keratoses L82.1 Active 593120292 Problem 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 Active 162550708 Problem Urinary frequency R35.0 Active 138118393 Problem Sciatica M54.30 Active 78321309 Problem Other chronic pain G89.29 Active 26052515 Problem Hepatitis C B19.20 Active 43914436 Problem Lumbago with sciatica, right side M54.41 Active 157997937 ALLERGIES No Information ENCOUNTERS Encounter Location Date Diagnosis [facility] [address] [facility] [id number] [address] Dec, Other organ or system involvement in systemic lupus erythematosus M32.19 [facility] [address] [place] [id number] Dec, Right renal artery stenosis I70.1 ; Injury of right kidney, sequela S37.001S ; Tobacco abuse Z72.0 ; Systemic lupus erythematosus, unspecified SLE type, unspecified organ involvement status M32.9 ; Hepatitis C B19.20 and Candidiasis of female genitalia B37.3 [facility] [address] [address] Dec, Other organ or system involvement in systemic lupus erythematosus M32.19 [place] [address] [address] Dec, Other organ or system involvement in systemic lupus erythematosus M32.19 [place] [address] [address] Dec, [place] [address] [address] Nov, Other organ or system involvement in systemic lupus erythematosus M32.19 [place] [address] [address] Oct, Other organ or system involvement in systemic lupus erythematosus M32.19 [place] [address] [address] Sep, Other organ or system involvement in systemic lupus erythematosus M32.19 [place] [address] [address] Aug, Anxiety F41.9 [place] [address] [address] Aug, Other organ or system involvement in systemic lupus erythematosus M32.19 [place] [address] [place] [id number] [address] July, Medicare annual wellness visit, initial Z00.00 ; Anxiety F41.9 ; HILARIO (obstructive sleep apnea) G47.33 ; Hepatitis C B19.20 ; Other chronic pain G89.29 ; Asymptomatic menopausal state Z78.0 and Episode of recurrent major depressive disorder, unspecified depression episode severity F33.9 [facility] [address], [place] [address] July, Anxiety F41.9 [facility] [address] [place] [id number] [place] [address] July, Other organ or system involvement in systemic lupus erythematosus M32.19 [facility] [address] [place] [address] July, [facility] [address] [place] [address] [id number] [place] [address] Jun, Other organ or system involvement in systemic lupus erythematosus M32.19 ; BMI 40.0-44.9, adult Z68.41 ; Other chronic pain G89.29 and Controlled substance agreement signed Z79.899 [facility] [address] [place] [address] May, Sciatica M54.30 [facility] [address] [place] [id number] [place] [address] Apr, Sciatica M54.30 [facility] [address] [place] [id number] [place] [address] Mar, Sciatica M54.30 [facility] [address] [place] [id number] [place] [address] Feb, Sciatica M54.30 [facility] [address] [place] [address] 15 Jan, 2017 Sciatica M54.30 [facility] [address] [place] [address] 14 Jan, 2017 Sciatica M54.30 [facility] [address] [place] [id number] [place] [address] 19 Dec, 2016 Sciatica M54.30 [facility] [address] [place] [address] 18 Dec, 2016 Sciatica M54.30 [facility] [address] [place] [id number] [place] [address] 29 Nov, 2016 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 E78.2 ; Chronic seasonal allergic rhinitis due to other allergen J30.2 and Family history of early CAD Z82.49 [place] [address] [place] [id number] [place] [address] 21 Nov, 2016 Sciatica M54.30 [place] [address] [address] 18 Nov, 2016 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 E78.2 ; Chronic seasonal allergic rhinitis due to other allergen J30.2 ; Family history of early CAD Z82.49 ; Other chronic pain G89.29 and Pain in left shoulder M25.512 [place] [address] [place] [id number] [place] [address] 11 Nov, 2016 Acute pain of left shoulder M25.512 [place] [address] [place] [id number] [place] [address] Oct, Sciatica M54.30 [place] [address] [address] Oct, [place] [address] [address] Sep, Sciatica M54.30 [place] [address] [place] [id number] [place] [address] Sep, Acute pain of left shoulder M25.512 [place] [address] [place] [id number] [place] [address] Sep, Acute pain of left shoulder M25.512 [place] [address] [address] Aug, Sciatica M54.30 [place] [address] [place] [id number] [place] [address] 09 Aug, 2016 Sciatica M54.30 ; Tobacco abuse Z72.0 and Tobacco abuse counseling Z71.6 [place] [address] [place] [id number] [place] [address] Aug, Acute pain of left shoulder M25.512 [facility] [place] [address] [address] Aug, Contusion of right shoulder, initial encounter S40.011A ; Acute pain of left shoulder M25.512 and Shortness of breath R06.02 [place] [address] [address] Aug, Lumbago with sciatica, right side M54.41 [place] [address] [address] July, [place] [address] [address] July, Lumbago with sciatica, right side M54.41 [place] [address] [address] Jun, Lumbago with sciatica, right side M54.41 [place] [address] [place] [id number] [place] [address] May, Lumbago with sciatica, right side M54.41 [facility] [place] [address] [place] [id number] [place] [address] May, Herpes zoster without complication B02.9 [facility] [place] [address] [place] [id number] [place] [address] May, Back pain M54.9 and Acute right-sided low back pain with right-sided sciatica M54.41 [place] [address] [address] Apr, [place] [address] [place] [id number] [place] [address] Apr, Lumbago with sciatica, right side M54.41 and Other chronic pain G89.29 [place] [address], [place] [address] Apr, [facility] [address] [place] [id number] [place] [address] Mar, [facility] [address] [place] [id number] [place] [address] Mar, [facility] [address] [place] [id number] [place] [address] Feb, [facility] [address] [place] [id number] [place] [address] Jan, Urinary frequency R35.0 [facility] [address] [place] [id number] [place] [address] Jan, [facility] [address] [place] [id number] [place] [address] Dec, [facility] [address] [place] [id number] [place] [address] Oct, [facility] [address] [place] [id number] [place] [address] Sep, [facility] [address] [place] [id number] [place] [address] Sep, Foreign body in left foot, initial encounter S90.852A [facility] [address] [place] [id number] [place] [address] Aug, [facility] [address] [place] [id number] [place] [address] July, Sciatica M54.30 [facility] [address] [place] [id number] [place] [address] Jun, [facility] [address] [place] [id number] [place] [address] May, Osteoarthritis M19.90 [facility] [address] [place] [id number] [place] [address] May, [facility] [address] [place] [address] May, Pain in right hip M25.551 [facility] [address] [place] [id number] [place] [address] May, Tinea corporis B35.4 [facility] [address] [place] [id number] [place] [address] 10 Apr, 2015 Pain in right hip M25.551 [facility] [address] [place] [id number] [place] [address] Mar, Pain in right hip M25.551 [facility] [address] [place] [id number] [place] [address] Mar, [facility] [address] [place] [id number] [place] [address] Feb, Pain in right hip M25.551 [facility] [address] [place] [id number] [place] [address] Jan, Acute bronchitis, unspecified organism J20.9 and Cough R05 [facility] [address] [place] [id number] [place] [address] Jan, Pain in right hip M25.551 [facility] [address] [place] [id number] [place] [address] Dec, Pain in right hip M25.551 [facility] [address] [place] [id number] [place] [address] Nov, Acute bronchitis 466.0 [facility] [address] [address] Nov, [facility] [address] [place] [id number] [place] [address] Oct, [facility] [address] [place] [id number] [place] [address] Sep, [facility] [place] [facility] [address] [id number] [place] [address] Aug, [facility] [place] [facility] [address] [id number] [place] [address] July, [facility] [place] [facility] [address] [id number] [place] [address] Jun, [facility] [place] [facility] [address] [id number] [place] [address] Jun, [facility] [place] [facility] [address] [id number] [place] [address] May, [facility] [place] [facility] [address] [id number] [place] [address] May, [facility] [place] [facility] [address] [facility] [id number] [place] [address] Apr, [facility] [place] [facility] [address] [id number] [place] [address] Apr, [facility] [place] [facility] [address] [id number] [place] [address] Apr, [facility] [place] [facility] [address] [facility] [id number] [place] [address] Apr, [facility] [place] [facility] [address] [facility] [id number] [place] [address] Apr, [facility] [place] [facility] [address] [id number] [place] [address] Apr, [facility] [place] [facility] [address] [id number] [place] [address] Mar, [facility] [place] [facility] [address] [id number] [place] [address] Mar, [facility] [place] [facility] [address] [facility] [id number] [place] [address] Feb, [facility] [place] [facility] [address] [id number] [place] [address] Feb, [facility] [place] [facility] [address] [id number] [place] [address] Feb, [facility] [place] [facility] [address] [id number] [place] [address] Dec, [facility] [place] [facility] [address] [id number] [place] [address] Dec, [facility] [place] [facility] [address] [id number] [place] [address] Nov, [facility] [place] [facility] [address] [id number] [place] [address] Nov, [facility] [place] [facility] [address] [id number] [place] [address] Nov, [facility] [place] [facility] [address] [id number] [place] [address] Nov, [facility] [place] [facility] [address] [id number] [place] [address] Sep, [facility] [place] [facility] [address] [id number] [place] [address] Sep, [facility] [place] [facility] [address] [facility] [id number] [place] [address] Sep, [facility] [place] [facility] [address] [id number] [place] [address] Sep, [facility] [place] [facility] [address] [id number] [place] [address] Aug, [facility] [place] [facility] [address] [id number] [place] [address] Aug, [facility] [place] [facility] [address] [id number] [place] [address] Aug, [facility] [place] [facility] [address] [id number] [place] [address] Aug, [facility] [place] [facility] [address] [id number] [place] [address] July, [facility] [place] [facility] [address] [id number] [place] [address] July, [facility] [place] [facility] [address] [id number] [place] [address] Jun, [facility] [place] [facility] [address] [id number] [place] [address] Jun, [facility] [place] [facility] [address] [id number] [place] [address] Jun, [facility] [place] [facility] [address] [id number] [place] [address] Jun, [facility] [place] [facility] [address] [id number] [place] [address] Jun, [facility] [place] [facility] [address] [id number] [place] [address] Jun, [facility] [place] [facility] [address] [id number] [place] [address] Jun, [facility] [place] [facility] [address] [id number] [place] [address] Jun, [facility] [place] [facility] [address] [id number] [place] [address] May, [facility] [place] [facility] [address] [id number] [place] [address] May, [facility] [place] [facility] [address] [id number] [place] [address] May, [facility] [place] [facility] [address] [id number] [place] [address] May, [facility] [place] [facility] [address] [id number] [place] [address] May, [facility] [place] [facility] [address] [id number] [address] May, [facility] [address] [id number] [place] [address] Apr, [facility] [place] [facility] [address] [id number] [place] [address] Apr, [facility] [place] [facility] [address] [id number] [place] [address] Apr, [facility] [place] [facility] [address] [id number] [place] [address] Apr, [facility] [place] [facility] [address] [id number] [place] [address] Mar, [facility] [place] [facility] [address] [id number] [place] [address] Mar, [facility] [address] [id number] [place] [address] Mar, [facility] [place] [facility] [address] [id number] [place] [address] Mar, [facility] [place] [facility] [address] [id number] [place] [address] Mar, [facility] [address] [id number] [place] [address] Mar, [facility] [place] [facility] [address] [id number] [place] [address] Feb, [facility] [place] [facility] [address] [id number] [place] [address] Feb, [facility] [place] [facility] [address] [id number] [place] [address] Feb, [facility] [place] [facility] [address] [id number] [place] [address] Feb, [facility] [place] [facility] [address] [id number] [place] [address] Feb, [facility] [place] [facility] [address] [id number] [place] [address] Feb, [facility] [place] [facility] [address] [id number] [place] [address] Feb, [facility] [place] [facility] [address] [id number] [place] [address] Feb, [facility] [place] [facility] [address] [id number] [place] [address] Feb, [facility] [place] [facility] [address] [id number] [place] [address] Feb, [facility] [place] [facility] [address] [id number] [place] [address] Feb, [facility] [address] [id number] [place] [address] Feb, [facility] [place] [facility] [address] [id number] [place] [address] Jan, [facility] [place] [facility] [address] [id number] [place] [address] Jan, [facility] [place] [facility] [address] [id number] [place] [address] Jan, [facility] [place] [facility] [address] [id number] [place] [address] Jan, [facility] [place] [facility] [address] [id number] [place] [address] Jan, [facility] [place] [facility] [address] [id number] [place] [address] Jan, [facility] [place] [facility] [address] [id number] [place] [address] Jan, [facility] [place] [facility] [address] [id number] [place] [address] Jan, [facility] [place] [facility] [address] [id number] [place] [address] Jan, [facility] [place] [facility] [address] [id number] [place] [address] Jan, [facility] [place] [facility] [address] [id number] [place] [address] Dec, [facility] [place] [facility] [address] [id number] [place] [address] Dec, [facility] [place] [facility] [address] [id number] [place] [address] Nov, [facility] [place] [facility] [address] [id number] [place] [address] Nov, [facility] [place] [facility] [address] [id number] [place] [address] Nov, [facility] [place] [facility] [address] [id number] [place] [address] Nov, [facility] [place] [facility] [address] [id number] [place] [address] Nov, [facility] [place] [facility] [address] [id number] [place] [address] Oct, [facility] [place] [facility] [address] [id number] [place] [address] Oct, [facility] [place] [facility] [address] [id number] [place] [address] Oct, [facility] [place] [facility] [address] [id number] [place] [address] Oct, [facility] [place] [facility] [address] [id number] [place] [address] Oct, [facility] [place] [facility] [address] [id number] [place] [address] Sep, [facility] [place] [facility] [address] [id number] [place] [address] Sep, [facility] [place] [facility] [address] [id number] [place] [address] Sep, [facility] [address] [id number] [place] [address] Sep, [facility] [address] [id number] [place] [address] Sep, [facility] [address] [id number] [place] [address] Sep, [facility] [address] [id number] [place] [address] Aug, [facility] [address] [id number] [place] [address] Aug, [facility] [address] [id number] [place] [address] July, [facility] [address] [id number] [place] [address] July, [facility] [address] [id number] [place] [address] July, [facility] [address] [id number] [place] [address] Jun, [facility] [address] [id number] [place] [address] Jun, [facility] [address] [id number] [place] [address] Jun, [facility] [address] [id number] [place] [address] Jun, [facility] [address] [id number] [place] [address] May, [facility] [address] [id number] [place] [address] May, [facility] [address] [id number] [place] [address] Apr, [facility] [address] [id number] [place] [address] Apr, [facility] [address] [id number] [place] [address] Apr, [facility] [address] [id number] [place] [address] Apr, [facility] [address] [id number] [place] [address] Apr, [facility] [address] [id number] [place] [address] Apr, [facility] [address] [facility] [id number] [place] [id number] Apr, [facility] [address] [id number] [place] [address] Apr, [facility] [address] [id number] [place] [address] Mar, [facility] [address] [id number] [place] [address] Mar, [facility] [address] [id number] [place] [address] Mar, [facility] [address] [id number] [place] [address] Mar, [facility] [place] [facility] [address] [id number] [address] Jan, [facility] [place] [facility] [address] [id number] [place] [address] Jan, [facility] [place] [facility] [address] [id number] [place] [address] Jan, [facility] [place] [facility] [address] [id number] [place] [address] Jan, [facility] [address] [id number] [place] [address] Jan, [facility] [place] [facility] [address] [id number] [place] [address] Dec, [facility] [place] [facility] [address] [id number] [place] [address] Dec, [facility] [place] [facility] [address] [id number] [place] [address] Dec, [facility] [place] [facility] [address] [id number] [place] [address] Dec, [facility] [place] [facility] [address] [id number] [place] [address] Nov, [facility] [place] [facility] [address] [id number] [place] [address] Oct, [facility] [place] [facility] [address] [id number] [place] [address] Oct, [facility] [place] [facility] [address] [id number] [place] [address] Oct, [facility] [place] [facility] [address] [id number] [place] [address] Oct, [facility] [place] [facility] [address] [id number] [place] [address] Oct, [facility] [place] [facility] [address] [id number] [place] [address] Sep, [facility] [place] [facility] [address] [id number] [place] [address] Sep, [facility] [place] [facility] [address] [id number] [place] [address] Aug, [facility] [place] [facility] [address] [id number] [place] [address] Aug, [facility] [place] [facility] [address] [id number] [place] [address] Aug, [facility] [place] [facility] [address] [id number] [place] [address] Aug, [facility] [place] [facility] [address] [id number] [place] [address] July, [facility] [place] [facility] [address] [id number] [place] [address] Jun, [facility] [place] [facility] [address] [id number] [place] [address] May, [facility] [address] [id number] [place] [address] May, [facility] [place] [facility] [address] [id number] [place] [address] May, [facility] [address] [id number] [place] [address] Mar, [facility] [address] [id number] [place] [address] Feb, [facility] [place] [facility] [address] [id number] [place] [address] Feb, [facility] [place] [facility] [address] [id number] [place] [address] Jan, [facility] [place] [facility] [address] [id number] [place] [address] Jan, [facility] [place] [facility] [address] [id number] [place] [address] Jan, [facility] [place] [facility] [address] [id number] [place] [address] Jan, [facility] [place] [facility] [address] [id number] [place] [address] 30 Jan, 2010 [facility] [place] [facility] [address] [id number] [place] [address] Dec, [facility] [place] [facility] [address] [id number] [address] Dec, [facility] [address] [facility] [id number], [place] [address] Dec, [facility] [address] [id number], [place] [address] May, [facility] [address] [facility] [id number], [place] [address] May, [facility] [address] [facility] [id number], [place] [address] Apr, [facility] [address] [facility] [id number], [place] [address] Jan, [facility] [address] [id number], [place] [address] Apr, IMMUNIZATIONS No Known Immunizations SOCIAL HISTORY Never Assessed REASON FOR VISIT new admit PLAN OF CARE VITAL SIGNS MEDICATIONS Medication Instructions Dosage Frequency Start Date End Date Duration Status Crestline 5-325 MG Orally every 6 hrs PRN [...]
--- OUTSIDE RECORDS SUMMARY | 2018-10-30 20:41 | XMS REPORT ---
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 Role Phone FAIZAN CHRISTA Unavailable PROBLEMS Type Condition ICD9-CM Code TMJ81-DW Code Onset Dates Condition Status SNOMED Code Problem Acute right-sided low back pain with right-sided sciatica M54.41 Active 856913332 Problem 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 E78.2 Active 630448388 Problem Other chronic pain G89.29 Active 25366434 Problem Systemic lupus erythematosus, unspecified SLE type, unspecified organ involvement status M32.9 Active 80495427 Problem Right renal artery stenosis I70.1 Active [id number] Problem Anxiety F41.9 Active 22841090 Problem Other organ or system involvement in systemic lupus erythematosus M32.19 Active 57093053 Problem Episode of recurrent major depressive disorder, unspecified depression episode severity F33.9 Active 197606853 Problem Asymptomatic menopausal state Z78.0 Active 32551987 Problem HILARIO (obstructive sleep apnea) G47.33 Active 39246816 Problem Seborrheic keratoses L82.1 Active 434677844 Problem 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 Active 128167137 Problem Urinary frequency R35.0 Active 507637105 Problem Sciatica M54.30 Active 84631519 Problem Other chronic pain G89.29 Active 54053459 Problem Hepatitis C B19.20 Active 60467088 Problem Lumbago with sciatica, right side M54.41 Active 390497878 ALLERGIES No Information ENCOUNTERS Encounter Location Date Diagnosis [facility] [address] [place] [id number] Dec, Right renal artery stenosis I70.1 ; Injury of right kidney, sequela S37.001S ; Tobacco abuse Z72.0 ; Systemic lupus erythematosus, unspecified SLE type, unspecified organ involvement status M32.9 ; Hepatitis C B19.20 and Candidiasis of female genitalia B37.3 [facility] [address], [place] [address] Dec, Other organ or system involvement in systemic lupus erythematosus M32.19 [facility] [address], [place] [address] Dec, Other organ or system involvement in systemic lupus erythematosus M32.19 [facility] [id number] [address] Dec, [facility] [address], [place] [address] Nov, Other organ or system involvement in systemic lupus erythematosus M32.19 [facility] [address], [place] [address] Oct, Other organ or system involvement in systemic lupus erythematosus M32.19 [facility] [address], [place] [address] Sep, Other organ or system involvement in systemic lupus erythematosus M32.19 [place] [address], [place] [address] Aug, Anxiety F41.9 [place] [address], [place] [address] Aug, Other organ or system involvement in systemic lupus erythematosus M32.19 [facility] [address], [place] [address] July, Medicare annual wellness visit, initial Z00.00 ; Anxiety F41.9 ; HILARIO (obstructive sleep apnea) G47.33 ; Hepatitis C B19.20 ; Other chronic pain G89.29 ; Asymptomatic menopausal state Z78.0 and Episode of recurrent major depressive disorder, unspecified depression episode severity F33.9 [facility] [id number] [address] July, Anxiety F41.9 [facility] [id number] [place] [address] July, Other organ or system involvement in systemic lupus erythematosus M32.19 [place] [address] [address] July, [facility] [id number] [place] [address] Jun, Other organ or system involvement in systemic lupus erythematosus M32.19 ; BMI 40.0-44.9, adult Z68.41 ; Other chronic pain G89.29 and Controlled substance agreement signed Z79.899 [place] [id number] [place] [address] May, Sciatica M54.30 [place] [id number] [place] [address] Apr, Sciatica M54.30 [place] [address] [address] Mar, Sciatica M54.30 [place] [id number] [place] [address] Feb, Sciatica M54.30 [place] [id number] [place] [address] Jan, Sciatica M54.30 [place] [id number] [place] [address] Jan, Sciatica M54.30 [place] [id number] [place] [address] Dec, Sciatica M54.30 [place] [address] [address] 18 Dec, 2016 Sciatica M54.30 [place] [id number] [place] [address] 29 Nov, 2016 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 E78.2 ; Chronic seasonal allergic rhinitis due to other allergen J30.2 and Family history of early CAD Z82.49 [facility] [id number] [place] [address] 21 Nov, 2016 Sciatica M54.30 [facility] [address] [address] 18 Nov, 2016 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 E78.2 ; Chronic seasonal allergic rhinitis due to other allergen J30.2 ; Family history of early CAD Z82.49 ; Other chronic pain G89.29 and Pain in left shoulder M25.512 [facility] [address] [address] 11 Nov, 2016 Acute pain of left shoulder M25.512 [facility] [address] [address] Oct, Sciatica M54.30 [facility] [address] [address] Oct, [facility] [address] [address] Sep, Sciatica M54.30 [facility] [address] [address] Sep, Acute pain of left shoulder M25.512 [facility] [address] [address] Sep, Acute pain of left shoulder M25.512 [facility] [address] [address] Aug, Sciatica M54.30 [facility] [address] [address] Aug, Sciatica M54.30 ; Tobacco abuse Z72.0 and Tobacco abuse counseling Z71.6 [facility] [id number] [place] [address] 05 Aug, 2016 Acute pain of left shoulder M25.512 [facility] [address] [place] [address] Aug, Contusion of right shoulder, initial encounter S40.011A ; Acute pain of left shoulder M25.512 and Shortness of breath R06.02 [place] [address] [address] Aug, Lumbago with sciatica, right side M54.41 [place] [address] [address] July, [place] [address] [address] July, Lumbago with sciatica, right side M54.41 [place] [address] [address] Jun, Lumbago with sciatica, right side M54.41 [place] [address] [address] May, Lumbago with sciatica, right side M54.41 [facility] [place] [address] [address] May, Herpes zoster without complication B02.9 [facility] [place] [id number] [place] [address] May, Back pain M54.9 and Acute right-sided low back pain with right-sided sciatica M54.41 [place] [id number] [place] [address] Apr, [place] [address] [address] Apr, Lumbago with sciatica, right side M54.41 and Other chronic pain G89.29 [place] [address] [address] Apr, [place] [address] [address] Mar, [facility] [address], [place] [address] Mar, [facility] [id number] [place] [address] Feb, [facility] [id number] [place] [address] Jan, Urinary frequency R35.0 [facility] [id number] [place] [address] Jan, [facility] [id number] [place] [address] Dec, [facility] [id number] [place] [address] Oct, [facility] [id number] [place] [address] Sep, [facility] [id number] [place] [address] Sep, Foreign body in left foot, initial encounter S90.852A [facility] [id number] [place] [address] Aug, [facility] [id number] [place] [address] July, Sciatica M54.30 [facility] [id number] [place] [address] Jun, [facility] [address] [place] [address] May, Osteoarthritis M19.90 [facility] [id number] [place] [address] May, [facility] [address], [place] [address] May, 2016 Pain in right hip M25.551 [facility] [address], [place] [address] May, Tinea corporis B35.4 [facility] [id number] [place] [address] 10 Apr, 2015 Pain in right hip M25.551 [facility] [id number] [place] [address] Mar, Pain in right hip M25.551 [facility] [id number] [place] [address] Mar, [facility] [id number] [place] [address] Feb, Pain in right hip M25.551 [facility] [id number] [place] [address] Jan, Acute bronchitis, unspecified organism J20.9 and Cough R05 [facility] [id number] [place] [address] Jan, Pain in right hip M25.551 [facility] [id number] [place] [address] Dec, Pain in right hip M25.551 [facility] [id number] [place] [address] Nov, Acute bronchitis 466.0 [facility] [id number] [place] [address] Nov, [facility] [id number] [place] [address] Oct, [facility] [id number] [place] [address] Sep, [facility] [address] [place] [address] Aug, [facility] [address] [place] [address] July, [facility] [place] [facility] [address] [id number] [place] [address] Jun, [facility] [place] [facility] [address] [id number] [place] [address] Jun, [facility] [place] [facility] [address] [id number] [place] [address] May, [facility] [place] [facility] [address] [id number] [place] [address] May, [facility] [place] [facility] [address] [id number] [place] [address] Apr, [facility] [place] [facility] [address] [id number] [place] [address] Apr, 2014 [facility] [place] [facility] [address] [id number] [place] [address] Apr, [facility] [place] [facility] [address] [id number] [place] [address] Apr, [facility] [place] [facility] [address] [id number] [place] [address] Apr, [facility] [place] [facility] [address] [id number] [place] [address] Apr, [facility] [place] [facility] [address] [id number] [place] [address] Mar, [facility] [place] [facility] [address] [id number] [place] [address] Mar, [facility] [place] [facility] [address] [id number] [place] [address] Feb, [facility] [place] [facility] [address] [id number] [place] [address] Feb, [facility] [place] [facility] [address] [id number] [place] [address] Feb, [facility] [place] [facility] [address] [id number] [place] [address] Dec, [facility] [place] [facility] [address] [id number] [place] [address] Dec, [facility] [place] [facility] [address] [id number] [place] [address] Nov, [facility] [place] [facility] [address] [id number] [place] [address] Nov, [facility] [place] [facility] [address] [id number] [place] [address] Nov, [facility] [place] [facility] [address] [id number] [place] [address] Nov, [facility] [place] [facility] [address] [id number] [place] [address] Sep, [facility] [place] [facility] [address] [id number] [place] [address] Sep, [facility] [place] [facility] [address] [id number] [place] [address] Sep, [facility] [place] [facility] [address] [id number] [place] [address] Sep, [facility] [place] [facility] [address] [id number] [place] [address] Aug, [facility] [place] [facility] [address] [id number], [place] [address] Aug, [facility] [place] [facility] [address] [id number] [place] [address] Aug, [facility] [place] [facility] [address] [id number] [place] [address] Aug, [facility] [place] [facility] [address] [id number] [place] [address] July, [facility] [place] [facility] [address] [id number] [place] [address] July, [facility] [address] [id number] [place] [address] Jun, [facility] [place] [facility] [address] [id number] [place] [address] Jun, [facility] [place] [facility] [address] [id number] [place] [address] Jun, [facility] [place] [facility] [address] [id number] [place] [address] Jun, [facility] [place] [facility] [address] [id number] [place] [address] Jun, [facility] [place] [facility] [address] [id number] [place] [address] Jun, [facility] [place] [facility] [address] [id number] [place] [address] Jun, [facility] [place] [facility] [address] [id number] [place] [address] Jun, [facility] [place] [facility] [address] [id number] [place] [address] May, [facility] [place] [facility] [address] [id number] [place] [address] May, [facility] [place] [facility] [address] [id number] [place] [address] May, [facility] [place] [facility] [address] [id number] [place] [address] May, [facility] [place] [facility] [address] [id number] [place] [address] May, [facility] [place] [facility] [address] [id number] [place] [address] May, [facility] [place] [facility] [address] [id number] [place] [address] Apr, [facility] [address] [id number] [place] [address] Apr, [facility] [place] [facility] [address] [id number] [place] [address] Apr, [facility] [place] [facility] [address] [id number] [place] [address] Apr, [facility] [place] [facility] [address] [id number] [place] [address] Mar, [facility] [address] [id number] [place] [address] Mar, [facility] [place] [facility] [address] [id number] [place] [address] Mar, [facility] [place] [facility] [address] [id number] [place] [address] Mar, [facility] [place] [facility] [address] [id number] [place] [address] Mar, [facility] [place] [facility] [address] [id number] [place] [address] Mar, [facility] [place] [facility] [address] [id number], [place] [address] Feb, [facility] [place] [facility] [address] [id number], [place] [address] Feb, [facility] [place] [facility] [address] [id number], [place] [address] Feb, [facility] [place] [facility] [address] [id number] [place] [address] Feb, [facility] [place] [facility] [address] [id number], [place] [address] Feb, [facility] [place] [facility] [address] [id number] [place] [address] Feb, [facility] [place] [facility] [address] [id number] [place] [address] 04 Feb, 2013 [facility] [address] [id number] [place] [address] Feb, [facility] [place] [facility] [address] [id number] [place] [address] Feb, [facility] [address] [id number] [place] [address] Feb, [facility] [place] [facility] [address] [id number] [place] [address] Feb, [facility] [place] [facility] [address] [id number] [place] [address] Feb, [facility] [place] [facility] [address] [id number] [place] [address] Jan, [facility] [address] [id number] [place] [address] Jan, [facility] [place] [facility] [address] [id number] [place] [address] Jan, [facility] [place] [facility] [address] [id number] [place] [address] Jan, [facility] [place] [facility] [address] [facility] [id number] [place] [address] Jan, [facility] [place] [facility] [address] [id number] [place] [address] Jan, [facility] [place] [facility] [address] [id number], [place] [address] Jan, [facility] [place] [facility] [address] [id number] [place] [address] Jan, [facility] [place] [facility] [address] [id number] [place] [address] Jan, [facility] [place] [facility] [address] [facility] [id number], [place] [address] Jan, [facility] [place] [facility] [address] [id number] [place] [address] Dec, [facility] [place] [facility] [address] [id number] [place] [address] Dec, [facility] [place] [facility] [address] [id number] [place] [address] Nov, [facility] [place] [facility] [address] [id number] [place] [address] Nov, [facility] [place] [facility] [address] [id number] [place] [address] Nov, [facility] [place] [facility] [address] [id number] [place] [address] Nov, [facility] [place] [facility] [address] [id number] [place] [address] Nov, [facility] [place] [facility] [address] [id number] [place] [address] Oct, [facility] [place] [facility] [address] [id number] [place] [address] Oct, [facility] [place] [facility] [address] [id number] [place] [address] Oct, [facility] [place] [facility] [address] [id number] [place] [address] Oct, [facility] [place] [facility] [address] [id number] [place] [address] Oct, [facility] [place] [facility] [address] [id number] [place] [address] Sep, [facility] [place] [facility] [address] [id number] [place] [address] Sep, [facility] [place] [facility] [address] [id number] [place] [address] Sep, [facility] [place] [facility] [address] [id number] [place] [address] Sep, [facility] [address] [id number] [place] [address] Sep, [facility] [place] [facility] [address] [id number] [place] [address] Sep, [facility] [place] [facility] [address] [id number] [place] [address] Aug, [facility] [place] [facility] [address] [id number] [place] [address] Aug, [facility] [place] [facility] [address] [id number] [place] [address] July, [facility] [place] [facility] [address] [id number] [place] [address] July, [facility] [place] [facility] [address] [id number] [place] [address] July, [facility] [place] [facility] [address] [id number] [place] [address] Jun, [facility] [place] [facility] [address] [id number] [place] [address] Jun, [facility] [place] [facility] [address] [id number] [place] [address] Jun, [facility] [place] [facility] [address] [id number] [place] [address] Jun, [facility] [place] [facility] [address] [id number] [place] [address] May, [facility] [place] [facility] [address] [id number] [place] [address] May, [facility] [place] [facility] [address] [id number] [place] [address] Apr, [facility] [place] [facility] [address] [id number] [place] [address] Apr, [facility] [place] [facility] [address] [id number] [place] [address] 20 Apr, 2012 [facility] [place] [facility] [address] [id number] [place] [address] Apr, 2012 [facility] [place] [facility] [address] [id number] [place] [address] Apr, [facility] [place] [facility] [address] [id number] [place] [address] Apr, 2012 [facility] [place] [facility] [address] [id number] [place] [id number] Apr, [facility] [place] [facility] [address] [id number] [place] [address] Apr, [facility] [place] [facility] [address] [id number] [place] [address] Mar, [facility] [place] [facility] [address] [id number] [place] [address] Mar, [facility] [address] [id number] [place] [address] Mar, [facility] [address] [id number] [place] [address] Mar, [facility] [address] [id number] [place] [address] Jan, [facility] [place] [facility] [address] [id number] [place] [address] Jan, [facility] [place] [facility] [address] [id number] [place] [address] Jan, [facility] [place] [facility] [address] [id number] [place] [address] 07 Jan, 2012 [facility] [place] [facility] [address] [id number] [place] [address] 07 Jan, 2012 [facility] [place] [facility] [address] [id number] [place] [address] Dec, [facility] [place] [facility] [address] [id number] [place] [address] Dec, [facility] [place] [facility] [address] [id number] [place] [address] Dec, [facility] [place] [facility] [address] [id number] [place] [address] Dec, [facility] [place] [facility] [address] [id number] [place] [address] Nov, [facility] [place] [facility] [address] [id number] [place] [address] Oct, [facility] [place] [facility] [address] [id number] [place] [address] Oct, [facility] [place] [facility] [address] [id number] [place] [address] Oct, [facility] [place] [facility] [address] [id number] [place] [address] Oct, [facility] [place] [facility] [address] [id number] [place] [address] Oct, [facility] [place] [facility] [address] [id number] [place] [address] Sep, [facility] [place] [facility] [address] [id number] [place] [address] Sep, [facility] [place] [facility] [address] [id number] [address] Aug, [facility] [place] [facility] [address] [id number] [place] [address] Aug, [facility] [place] [facility] [address] [id number] [place] [address] Aug, [facility] [place] [facility] [address] [id number] [place] [address] Aug, [facility] [place] [facility] [address] [id number] [place] [address] 14 Jul, 2011 [facility] [place] [facility] [address] [id number] [place] [address] Jun, [facility] [place] [facility] [address] [id number] [place] [address] 28 May, 2011 [facility] [place] [facility] [address] [id number] [place] [address] May, [facility] [place] [facility] [address] [id number] [place] [address] May, [facility] [place] [facility] [address] [id number] [place] [address] 30 Mar, 2011 [facility] [place] [facility] [address] [id number] [place] [address] Feb, [facility] [place] [facility] [address] [id number] [place] [address] Feb, [facility] [facility] [facility] [address] [id number] [place] [address] Jan, [facility] [place] [facility] [address] [id number] [place] [address] Jan, [facility] [place] [facility] [address] [facility] [id number] [place] [address] Jan, [facility] [place] [facility] [address] [id number] [place] [address] Jan, [facility] [place] [facility] [address] [id number] [place] [address] 30 Jan, 2010 [facility] [place] [facility] [address] [id number] [place] [address] 20 Dec, 2009 [facility] [place] [facility] [address] [id number] [place] [address] 13 Dec, 2009 [facility] [place] [facility] [address] [id number] [place] [address] 13 Dec, 2009 [facility] [address] [facility] [id number] [address] 18 May, 2009 [facility] [address] [facility] [id number], [place] [address] May, [facility] [address] [id number] [address] Apr, [facility] [address] [id number] [address] Jan, [facility] [address] [facility] [id number], [place] [address] Apr, IMMUNIZATIONS No Known Immunizations SOCIAL HISTORY Never Assessed REASON FOR VISIT Controlled Med Refill PLAN OF CARE VITAL SIGNS MEDICATIONS Medication Instructions Dosage Frequency Start Date End Date Duration Status Lyndora 5-325 MG Orally every 6 hrs PRN [...]
--- OUTSIDE RECORDS SUMMARY | 2018-10-30 20:42 | XMS REPORT ---
Author Author CHRISTA GLORIA Organization [facility] Address [address] [place] [address] Care Team Providers Care Car Spotter Name Role Phone CHRISTA GLORIA Unavailable PROBLEMS Type Condition ICD9-CM Code [id number] Code Onset Dates Condition Status SNOMED Code Problem Other chronic pain G89.29 Active 30997004 Problem Acute right-sided low back pain with right-sided sciatica M54.41 Active 131237444 Problem Lumbago with sciatica, right side M54.41 Active 372593304 Problem Asymptomatic menopausal state Z78.0 Active 36335281 Problem Episode of recurrent major depressive disorder, unspecified depression episode severity F33.9 Active 118088298 Problem 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 E78.2 Active 611028171 Problem Other chronic pain G89.29 Active 92286431 Problem Anxiety F41.9 Active 18645875 Problem Other organ or system involvement in systemic lupus erythematosus M32.19 Active 73973065 Problem Sciatica M54.30 Active 78325865 Problem Hepatitis C B19.20 Active 49600400 Problem HILARIO (obstructive sleep apnea) G47.33 Active 35606540 Problem 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 Active 585492301 Problem Seborrheic keratoses L82.1 Active 848506444 Problem Urinary frequency R35.0 Active 542268839 ALLERGIES No Information ENCOUNTERS Encounter Location Date Diagnosis [facility] [id number] [address] Dec, Other organ or system involvement in systemic lupus erythematosus M32.19 [facility] [address] [address] Dec, Other organ or system involvement in systemic lupus erythematosus M32.19 [facility] [id number] [address] Dec, [facility] [id number] [address] Nov, Other organ or system involvement in systemic lupus erythematosus M32.19 [facility] [address], [place] [address] Oct, Other organ or system involvement in systemic lupus erythematosus M32.19 [facility] [address] [address] Sep, Other organ or system involvement in systemic lupus erythematosus M32.19 [address], [place] [address] Aug, Anxiety F41.9 [address] [address] Aug, Other organ or system involvement in systemic lupus erythematosus M32.19 [address] [address] July, Medicare annual wellness visit, initial Z00.00 ; Anxiety F41.9 ; HILARIO (obstructive sleep apnea) G47.33 ; Hepatitis C B19.20 ; Other chronic pain G89.29 ; Asymptomatic menopausal state Z78.0 and Episode of recurrent major depressive disorder, unspecified depression episode severity F33.9 [place] [id number] [address] July, Anxiety F41.9 [address] [place] [address] July, Other organ or system involvement in systemic lupus erythematosus M32.19 [address] [address] July, [place] [address], [place] [address] Jun, Other organ or system involvement in systemic lupus erythematosus M32.19 ; BMI 40.0-44.9, adult Z68.41 ; Other chronic pain G89.29 and Controlled substance agreement signed Z79.899 [facility] [address] [address] May, Sciatica M54.30 [facility] [address] [address] 03 Apr, 2017 Sciatica M54.30 [facility] [address] [address] Mar, Sciatica M54.30 [place] [address] [address] Feb, Sciatica M54.30 [place] [address] [address] 15 Jan, 2017 Sciatica M54.30 [place] [address] [address] 14 Jan, 2017 Sciatica M54.30 [place] [id number] [place] [address] 19 Dec, 2016 Sciatica M54.30 [place] [address] [address] 18 Dec, 2016 Sciatica M54.30 [place] [id number] [place] [address] 29 Nov, 2016 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 E78.2 ; Chronic seasonal allergic rhinitis due to other allergen J30.2 and Family history of early CAD Z82.49 [address] [id number] [place] [address] 21 Nov, 2016 Sciatica M54.30 [place] [address] [address] 18 Nov, 2016 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 E78.2 ; Chronic seasonal allergic rhinitis due to other allergen J30.2 ; Family history of early CAD Z82.49 ; Other chronic pain G89.29 and Pain in left shoulder M25.512 [address] [id number] [place] [address] Nov, Acute pain of left shoulder M25.512 [facility] [id number] [place] [address] Oct, Sciatica M54.30 [facility] [id number] [place] [address] Oct, [facility] [address] [address] Sep, Sciatica M54.30 [facility] [id number] [place] [address] Sep, Acute pain of left shoulder M25.512 [facility] [id number] [place] [address] Sep, Acute pain of left shoulder M25.512 [address] [id number] [place] [address] Aug, Sciatica M54.30 [facility] [id number] [place] [address] Aug, Sciatica M54.30 ; Tobacco abuse Z72.0 and Tobacco abuse counseling Z71.6 [facility] [id number] [place] [address] Aug, Acute pain of left shoulder M25.512 [facility] [id number] [place] [address] Aug, Contusion of right shoulder, initial encounter S40.011A ; Acute pain of left shoulder M25.512 and Shortness of breath R06.02 [facility] [id number] [place] [address] Aug, Lumbago with sciatica, right side M54.41 [facility] [id number] [place] [address] July, [facility] [id number] [place] [address] July, Lumbago with sciatica, right side M54.41 [facility] [id number] [place] [address] Jun, Lumbago with sciatica, right side M54.41 [facility] [id number] [place] [address] May, Lumbago with sciatica, right side M54.41 [facility] [id number] [place] [address] May, Herpes zoster without complication B02.9 [facility] [id number] [place] [address] May, Back pain M54.9 and Acute right-sided low back pain with right-sided sciatica M54.41 [facility] [id number] [place] [address] Apr, [facility] [id number] [place] [address] Apr, Lumbago with sciatica, right side M54.41 and Other chronic pain G89.29 [facility] [id number] [place] [address] Apr, [facility] [id number] [place] [address] Mar, [facility] [id number] [place] [address] Mar, [facility] [address] [address] Feb, [facility] [id number] [place] [address] Jan, Urinary frequency R35.0 [facility] [address] [place] [address] Jan, [facility] [id number] [place] [address] Dec, [facility] [id number] [place] [address] Oct, [facility] [id number] [place] [address] Sep, [facility] [id number] [place] [address] Sep, Foreign body in left foot, initial encounter S90.852A [facility] [id number] [place] [address] Aug, [facility] [id number] [place] [address] July, Sciatica M54.30 [facility] [id number] [place] [address] Jun, [facility] [id number] [place] [address] May, Osteoarthritis M19.90 [facility] [id number] [place] [address] May, [facility] [address] [place] [address] May, Pain in right hip M25.551 [facility] [address], [place] [address] May, Tinea corporis B35.4 [facility] [id number] [place] [address] 10 Apr, 2015 Pain in right hip M25.551 [facility] [address] [place] [address] Mar, Pain in right hip M25.551 [address] [place], [place] [address] Mar, [facility] [id number] [place] [address] Feb, Pain in right hip M25.551 [facility] [address] [place] [address] Jan, Acute bronchitis, unspecified organism J20.9 and Cough R05 [facility] [id number] [place] [address] Jan, Pain in right hip M25.551 [facility] [id number] [place] [address] Dec, Pain in right hip M25.551 [facility] [address] [place] [address] Nov, Acute bronchitis 466.0 [facility] [address] [place] [address] Nov, [facility] [address] [place] [address] Oct, [facility] [address] [address] Sep, [facility] [address], [place] [address] Aug, [facility] [address], [place] [address] July, [facility] [address], [place] [address] Jun, [facility] [address], [place] [address] Jun, [facility] [address], [place] [address] May, [facility] [id number] [place] [address] May, [facility] [place] [facility] [address] [id number] [place] [address] Apr, 2014 [facility] [place] [facility] [address] [id number] [place] [address] Apr, 2014 [facility] [place] [facility] [address] [id number] [place] [address] Apr, 2014 [facility] [place] [facility] [address] [id number] [place] [address] Apr, 2014 [facility] [place] [facility] [address] [id number] [place] [address] Apr, 2014 [facility] [place] [facility] [address] [facility] [id number] [place] [address] Apr, 2014 [facility] [place] [facility] [address] [facility] [id number] [place] [address] Mar, [facility] [place] [facility] [address] [id number] [place] [address] Mar, [facility] [place] [facility] [address] [facility] [id number] [place] [address] Feb, [facility] [place] [facility] [address] [facility] [id number] [place] [address] 15 Feb, 2014 [facility] [place] [facility] [address] [facility] [id number] [place] [address] 15 Feb, 2014 [facility] [place] [facility] [address] [id number] [place] [address] Dec, [facility] [place] [facility] [address] [id number] [place] [address] Dec, [facility] [place] [facility] [address] [facility] [id number] [place] [address] 17 Nov, 2013 [facility] [place] [facility] [address] [id number] [place] [address] Nov, [facility] [place] [facility] [address] [id number] [place] [address] Nov, [facility] [place] [facility] [address] [id number] [place] [address] Nov, [facility] [place] [facility] [address] [id number] [place] [address] Sep, [facility] [place] [facility] [address] [id number] [place] [address] Sep, [facility] [place] [facility] [address] [id number] [place] [address] Sep, [facility] [place] [facility] [address] [id number] [place] [address] Sep, [facility] [place] [facility] [address] [id number] [place] [address] Aug, [facility] [place] [facility] [address] [id number] [place] [address] Aug, [facility] [place] [facility] [address] [id number] [place] [address] Aug, [facility] [place] [facility] [address] [id number] [place] [address] Aug, [facility] [place] [facility] [address] [id number] [place] [address] July, [facility] [place] [facility] [address] [id number] [place] [address] July, [facility] [place] [facility] [address] [id number] [place] [address] Jun, [facility] [place] [facility] [address] [id number] [place] [address] Jun, [facility] [place] [facility] [address] [id number] [place] [address] Jun, [facility] [place] [facility] [address] [id number] [place] [address] Jun, [facility] [place] [facility] [address] [id number] [place] [address] Jun, [facility] [place] [facility] [address] [id number] [place] [address] Jun, [facility] [place] [facility] [address] [id number] [place] [address] Jun, [facility] [place] [facility] [address] [id number] [place] [address] Jun, [facility] [place] [facility] [address] [id number] [place] [address] May, [facility] [place] [facility] [address] [id number] [place] [address] May, [facility] [place] [facility] [address] [id number] [place] [address] May, [facility] [place] [facility] [address] [id number] [place] [address] May, [facility] [place] [facility] [address] [id number] [place] [address] May, [facility] [place] [facility] [address] [facility] [id number] [place] [address] May, [facility] [place] [facility] [address] [id number] [place] [address] Apr, [facility] [place] [facility] [address] [id number] [place] [address] Apr, [facility] [place] [facility] [address] [id number] [place] [address] Apr, [facility] [place] [facility] [address] [id number] [place] [address] Apr, [facility] [place] [facility] [address] [id number] [place] [address] Mar, [facility] [address] [id number] [place] [address] Mar, [facility] [place] [facility] [address] [id number] [place] [address] Mar, [facility] [place] [facility] [address] [id number] [place] [address] Mar, [facility] [place] [facility] [address] [id number] [place] [address] Mar, [facility] [place] [facility] [address] [id number] [place] [address] Mar, [facility] [place] [facility] [address] [id number] [place] [address] Feb, [facility] [place] [facility] [address] [id number] [place] [address] Feb, [facility] [place] [facility] [address] [id number] [place] [address] Feb, [facility] [place] [facility] [address] [id number] [place] [address] Feb, [facility] [place] [facility] [address] [id number] [place] [address] Feb, [facility] [place] [facility] [address] [id number] [place] [address] Feb, [facility] [place] [facility] [address] [id number] [address] Feb, [facility] [place] [facility] [address] [id number] [place] [address] Feb, [facility] [place] [facility] [address] [id number] [place] [address] Feb, [facility] [place] [facility] [address] [id number] [place] [address] Feb, [facility] [place] [facility] [address] [id number] [address] Feb, [facility] [address] [id number] [place] [address] Feb, [facility] [place] [facility] [address] [id number], [place] [address] Jan, [facility] [address] [id number] [place] [address] Jan, [facility] [place] [facility] [address] [id number] [place] [address] Jan, [facility] [address] [id number] [place] [address] Jan, [facility] [place] [facility] [address] [id number] [place] [address] Jan, [facility] [address] [id number], [place] [address] Jan, [facility] [place] [facility] [address] [id number], [place] [address] Jan, [facility] [place] [facility] [address] [id number] [place] [address] Jan, [facility] [place] [facility] [address] [id number], [place] [address] Jan, [facility] [place] [facility] [address] [id number], [place] [address] Jan, [facility] [place] [facility] [address] [id number], [place] [address] Dec, [facility] [place] [facility] [address] [id number], [place] [address] Dec, [facility] [place] [facility] [address] [id number], [place] [address] Nov, [facility] [place] [facility] [address] [id number], [place] [address] Nov, [facility] [place] [facility] [address] [id number] [place] [address] Nov, [facility] [place] [facility] [address] [id number] [place] [address] Nov, [facility] [place] [facility] [address] [id number] [place] [address] Nov, [facility] [place] [facility] [address] [id number] [place] [address] Oct, [facility] [place] [facility] [address] [id number] [place] [address] Oct, [facility] [place] [facility] [address] [id number] [place] [address] Oct, [facility] [place] [facility] [address] [id number] [place] [address] Oct, [facility] [place] [facility] [address] [id number] [place] [address] Oct, [facility] [place] [facility] [address] [id number] [place] [address] Sep, [facility] [place] [facility] [address] [id number] [place] [address] Sep, [facility] [place] [facility] [address] [id number] [place] [address] Sep, [facility] [place] [facility] [address] [id number] [place] [address] Sep, [facility] [place] [facility] [address] [id number] [place] [address] Sep, [facility] [place] [facility] [address] [id number] [place] [address] Sep, [facility] [place] [facility] [address] [id number] [place] [address] Aug, [facility] [place] [facility] [address] [id number] [place] [address] Aug, [facility] [address] [id number] [place] [address] July, [facility] [place] [facility] [address] [id number] [place] [address] July, [facility] [place] [facility] [address] [id number] [place] [address] July, [facility] [place] [facility] [address] [id number] [place] [address] Jun, [facility] [place] [facility] [address] [id number] [place] [address] Jun, [facility] [place] [facility] [address] [id number] [place] [address] Jun, [facility] [address] [id number] [place] [address] Jun, [facility] [place] [facility] [address] [id number] [place] [address] May, [facility] [address] [id number] [place] [address] May, [facility] [place] [facility] [address] [facility] [id number] [place] [address] Apr, [facility] [address] [id number] [address] Apr, [facility] [place] [facility] [address] [id number], [place] [address] Apr, [facility] [place] [facility] [address] [id number] [place] [address] Apr, [facility] [place] [facility] [address] [id number] [place] [address] 13 Apr, 2012 [facility] [place] [facility] [address] [id number] [place] [address] 11 Apr, 2012 [facility] [place] [facility] [address] [id number] [place] [id number] Apr, [facility] [place] [facility] [address] [id number] [place] [address] Apr, [facility] [place] [facility] [address] [id number] [place] [address] Mar, [facility] [place] [facility] [address] [id number] [place] [address] Mar, [facility] [place] [facility] [address] [id number] [place] [address] Mar, [facility] [place] [facility] [address] [id number] [place] [address] Mar, [facility] [place] [facility] [address] [id number] [place] [address] Jan, [facility] [place] [facility] [address] [id number] [place] [address] Jan, [facility] [place] [facility] [address] [id number] [place] [address] Jan, [facility] [place] [facility] [address] [id number] [place] [address] Jan, [facility] [place] [facility] [address] [id number] [place] [address] Jan, [facility] [place] [facility] [address] [id number] [place] [address] Dec, [facility] [place] [facility] [address] [id number] [place] [address] Dec, [facility] [place] [facility] [address] [id number] [place] [address] Dec, [facility] [place] [facility] [address] [id number] [place] [address] Dec, [facility] [place] [facility] [address] [id number] [place] [address] Nov, [facility] [place] [facility] [address] [id number] [place] [address] Oct, [facility] [place] [facility] [address] [id number] [place] [address] Oct, [facility] [place] [facility] [address] [id number] [place] [address] Oct, [facility] [place] [facility] [address] [id number] [place] [address] Oct, [facility] [place] [facility] [address] [id number] [place] [address] Oct, [facility] [place] [facility] [address] [id number] [place] [address] Sep, [facility] [place] [facility] [address] [id number] [place] [address] Sep, [facility] [place] [facility] [address] [id number] [place] [address] Aug, [facility] [place] [facility] [address] [id number] [place] [address] Aug, [facility] [place] [facility] [address] [id number] [place] [address] Aug, [facility] [place] [facility] [address] [id number] [place] [address] Aug, [facility] [place] [facility] [address] [id number] [place] [address] July, [facility] [place] [facility] [address] [id number] [place] [address] Jun, [facility] [place] [facility] [address] [id number] [place] [address] May, [facility] [place] [facility] [address] [id number] [place] [address] May, [facility] [place] [facility] [address] [id number] [place] [id number] 12 May, 2011 [facility] [place] [facility] [address] [id number] [place] [address] 30 Mar, 2011 [facility] [place] [facility] [address] [id number] [place] [address] Feb, [facility] [place] [facility] [address] [id number] [place] [address] Feb, [facility] [place] [facility] [address] [id number] [place] [address] Jan, [facility] [place] [facility] [address] [id number] [place] [address] Jan, [facility] [place] [facility] [address] [id number] [place] [address] Jan, [facility] [place] [facility] [address] [id number] [place] [address] Jan, [facility] [place] [facility] [address] [id number] [place] [address] Jan, [facility] [place] [facility] [address] [id number] [place] [address] Dec, [facility] [place] [facility] [address] [id number] [place] [address] Dec, [facility] [place] [facility] [address] [id number] [place] [address] 13 Dec, 2009 [facility] [place] [facility] [address] [id number] [place] [address] 18 May, 2009 [facility] [place] [facility] [address] [id number] [place] [address] 15 May, 2009 [facility] [place] [facility] [address] [id number] [place] [address] 17 Apr, 2009 [facility] [place] [facility] [address] [id number] [place] [address] Jan, [facility] [address] [facility] [id number] [place] [address] 11 Apr, 2008 IMMUNIZATIONS No Known Immunizations SOCIAL HISTORY Never Assessed REASON FOR VISIT ER visit/transfer PLAN OF CARE VITAL SIGNS MEDICATIONS Unknown [...]
--- NOTE | 2018-10-30 20:44 | ED Lower Extremity ---
General Chief Complaint: Lower Extremity Stated Complaint: R FOOT PAIN Nursing Triage Note: RIGHT 2ND TOE PAIN. NO INJURY Nursing Sepsis Screen: No Definite Risk Source: patient Exam Limitations: no limitations History of Present Illness Date Seen by Provider: Oct 30, 2018 Time Seen by Provider: 20:43 Allergies and Home Medications Allergies Coded Allergies: No Known Drug Allergies (Verified , 10/21/08) Home Medications Allopurinol 100 Mg Tablet, 100 MG PO DAILY, (Reported) Aspirin 81 Mg Tab.chew, 81 MG PO DAILY Prescribed by: SERINA DEL REAL on 07/31/18 0859 Clindamycin HCl 300 Mg Capsule, 300 MG PO QID Prescribed by: ALDEN RODRIGUEZ on 10/30/18 2258 Diphenoxylate HCl/Atropine 1 Each Tablet, 1 TAB PO Q6H PRN for DIARRHEA, (Reported) Fluoxetine HCl 40 Mg Capsule, 40 MG PO DAILY, (Reported) Hydrocodone/Acetaminophen 1 Each Tablet, 1 TAB PO TID PRN for PAIN-MODERATE, (Reported) Hydroxychloroquine Sulfate 200 Mg Tablet, 400 MG PO DAILY, (Reported) TAKES 2 (200MG) TABLETS Metoprolol Succinate 50 Mg Tab.er.24h, 50 MG PO DAILY Prescribed by: SERINA DEL REAL on 07/31/18 0859 Ondansetron HCl 4 Mg Tablet, 4 MG PO Q6H PRN for NAUSEA/VOMITING-1ST LINE, (Reported) Prednisone 10 Mg Tab, 10 MG PO DAILY, (Reported) Past Ohflmcy-Kpsfdj-Frhtie Hx Patient Social History Alcohol Use: Rarely Uses Recreational Drug Use: No Smoking Status: Current Everyday Smoker Type Used: Cigarettes 2nd Hand Smoke Exposure: Yes Recent Foreign Travel: No Contact w/Someone Who Travel: No Recent Infectious Disease Expo: No Recent Hopitalizations: No (CVA 4-19) Physical Abuse: No Sexual Abuse: No Mistreated: No Fear: No Immunizations Up To Date PED Vaccines UTD: No Date of Pneumonia Vaccine: Dec 22, 2008 Date of Influenza Vaccine: Dec 23, 2011 Seasonal Allergies Seasonal Allergies: No Past Medical History Surgeries: Yes Abdominal, Adenoidectomy, Cardiac, Gallbladder, Hysterectomy, Oophorectomy, Orthopedic, Tonsillectomy Respiratory: Yes Pneumonia Currently Using CPAP: No Currently Using BIPAP: No Cardiac: Yes Coronary Artery Disease, High Cholesterol, Hypertension Neurological: Yes Neuropathy, Stroke : No 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 Disorders: Yes (HX OF VULVAR CA--MODIFIED RADICAL VULVECTOMY 1991) 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 Disorders: Denies [employer] History: Hysterectomy, Menopausal Sexually Transmitted Disease: No HIV/AIDS: No Genitourinary: Yes (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 Physical Exam Vital Signs Vital Signs - First Documented 10/30/18 20:08 Temp 96.8 Pulse 73 Resp 16 B/P (MAP) 136/75 (95) Pulse Ox 97 O2 Delivery Room Air Capillary Refill : Less Than 3 Seconds Height, Weight, BMI Height: 5'0.00" Weight: 161lbs. 0oz. 73.735063qg; 32.7 BMI Method:Stated Progress/Results/Core Measures Results/Orders Lab Results Laboratory Tests Test 10/30/18 21:12 Range/Units White Blood Count 8.9 4.3-11.0 10^3/uL Red Blood Count 4.25 L 4.35-5.85 10^6/uL Hemoglobin 12.1 11.5-16.0 G/DL Hematocrit 38 35-52 % Mean Corpuscular Volume 90 80-99 FL Mean Corpuscular Hemoglobin 29 25-34 PG Mean Corpuscular Hemoglobin Concent 32 32-36 G/DL Red Cell Distribution Width 14.8 H 10.0-14.5 % Platelet Count 253 130-400 10^3/uL Mean Platelet Volume 11.2 H 7.4-10.4 FL Neutrophils (%) (Auto) 68 42-75 % Lymphocytes (%) (Auto) 23 12-44 % Monocytes (%) (Auto) 8 0-12 % Eosinophils (%) (Auto) 1 0-10 % Basophils (%) (Auto) 0 0-10 % Neutrophils # (Auto) 6.1 1.8-7.8 X 10^3 Lymphocytes # (Auto) 2.0 1.0-4.0 X 10^3 Monocytes # (Auto) 0.7 0.0-1.0 X 10^3 Eosinophils # (Auto) 0.1 0.0-0.3 10^3/uL Basophils # (Auto) 0.0 0.0-0.1 10^3/uL Sodium Level 144 135-145 MMOL/L Potassium Level 4.0 3.6-5.0 MMOL/L Chloride Level 112 H 98-107 MMOL/L Carbon Dioxide Level 17 L 21-32 MMOL/L Anion Gap 15 H 5-14 MMOL/L Blood Urea Nitrogen 22 H 7-18 MG/DL Creatinine 1.83 H 0.60-1.30 MG/DL Estimat Glomerular Filtration Rate 27 BUN/Creatinine Ratio 12 Glucose Level 76 70-105 MG/DL Calcium Level 9.3 8.5-10.1 MG/DL Corrected Calcium 9.5 8.5-10.1 MG/DL Total Bilirubin 0.4 0.1-1.0 MG/DL Aspartate Amino Transf (AST/SGOT) 13 5-34 U/L Alanine Aminotransferase (ALT/SGPT) 15 0-55 U/L Alkaline Phosphatase 67 40-136 U/L C-Reactive Protein High Sensitivity 0.05 0.00-0.50 MG/DL Total Protein 6.5 6.4-8.2 GM/DL Albumin 3.7 3.2-4.5 GM/DL My Orders Orders - ALDEN RODRIGUEZ Ed Iv/Invasive Line Start (10/30/18 21:05) Cbc With Automated Diff (10/30/18 21:05) Comprehensive Metabolic Panel (10/30/18 21:05) Hs C Reactive Protein (10/30/18 21:05) Foot, Right, 3 View (10/30/18 21:05) Ns Iv 1000 Ml (Sodium Chloride 0.9%) (10/30/18 22:13) Clindamycin 600 Mg/50 Ml Ivpb (Cleocin P (10/30/18 22:15) Medications Given in ED Vital Signs/I&O 10/30/18 10/30/18 20:08 23:00 Temp 96.8 97.2 Pulse 73 55 Resp 16 18 B/P (MAP) 136/75 (95) 145/58 (87) Pulse Ox 97 97 O2 Delivery Room Air Room Air 10/31/18 00:00 Intake Total 1050 ml Balance 1050 ml Blood Pressure Mean: 95 Departure Impression Primary Impression: Cellulitis of second toe, right Additional Impressions: Peripheral artery disease Chronic kidney disease (CKD) Disposition: 01 HOME, SELF-CARE Condition: Improved Departure-Patient Inst. Decision time for Depature: 22:55 Referrals: [facility] (PCP) Primary Care Physician CHRISTA GLORIA (Family) Primary Care Physician Patient Instructions: Cellulitis (Skin Infection), Adult (DC), Chronic Kidney Disease (DC), Peripheral Vascular (Arterial) Disease (DC) Add. Discharge Instructions: All discharge instructions reviewed with patient and/or family. Voiced un derstanding. Medications as instructed. Continue usual home medications. Apply a iodine as instructed to the right second toe wound twice daily. Elevate the lower extremities. [place] [facility] morning for recheck and repeat labs. Return to the emergency department for worsened discoloration of the toes, increased pain, redness, fe erin, drainage, or any other concerns. Scripts Clindamycin HCl (Cleocin HCl) 300 Mg Capsule 300 MG PO QID, #28 CAP 0 Refills Prov: ALDEN RODRIGUEZ 10/30/18 ALDEN RODRIGUEZ Oct 30, 2018 20:44
--- OUTSIDE RECORDS SUMMARY | 2018-10-30 20:56 | XMS REPORT | Continuity of Care Document ---
Author Organization Unknown Address Unknown Phone Unavailable Allergies Active Description Code Type Severity Reaction Onset Reported/Identified Relationship to Patient Clinical Status Yes No Known Drug Allergies [id number] Drug Allergy Unknown N/A 10/21/2008 Yes Cymbalta 60 mg enteric coated capsule Drug Allergy 11/11/2011 Yes Cymbalta 60 mg enteric coated capsule Drug Allergy N/A N/A 11/11/2011 Medications There is no data. Problems Date Dx Coded Attending Type Code Diagnosis Diagnosed By 12/07/2007 840.9 Sprain/strain Shoulder/arm 12/07/2007 840.9 Sprain/strain Shoulder/arm 12/07/2007 LUANNE LINDA DO 840.9 Sprain/strain Shoulder/arm 12/07/2007 LUANNE LINDA DO 840.9 Sprain/strain Shoulder/arm 12/07/2007 840.9 Sprain/strain Shoulder/arm 12/07/2007 840.9 Sprain/strain Shoulder/arm 12/07/2007 840.9 Sprain/strain Shoulder/arm 12/07/2007 840.9 Sprain/strain Shoulder/arm 12/07/2007 840.9 Sprain/strain Shoulder/arm 12/07/2007 840.9 Sprain/strain Shoulder/arm 12/07/2007 LUANNE LINDA DO 840.9 Sprain/strain Shoulder/arm 12/07/2007 LUANNE LINDA DO 840.9 Sprain/strain Shoulder/arm 12/07/2007 LUANNE LINDA DO 840.9 Sprain/strain Shoulder/arm 12/07/2007 HERNAN CRUZ MD 840.9 Sprain/strain Shoulder/arm 12/07/2007 LUANNE LINDA DO 840.9 Sprain/strain Shoulder/arm 12/07/2007 LUANNE LINDA DO 840.9 Sprain/strain Shoulder/arm 12/07/2007 COLLEEN WAYNE APRN 840.9 Sprain/strain Shoulder/arm 12/07/2007 LINDA DO, LUANNE K 840.9 Sprain/strain Shoulder/arm 12/07/2007 LINDA DO, LUANNE K 840.9 Sprain/strain Shoulder/arm 12/07/2007 LINDA DO, LUANNE K 840.9 Sprain/strain Shoulder/arm 12/07/2007 LINDA DO, LUANNE K 840.9 Sprain/strain Shoulder/arm 12/07/2007 LINDA DO, LUANNE K 840.9 Sprain/strain Shoulder/arm 12/07/2007 LINDA DO, LUANNE K 840.9 Sprain/strain Shoulder/arm 12/07/2007 COLLEEN WAYNE APRN R 840.9 Sprain/strain Shoulder/arm 12/07/2007 ONEYDA RUIZ APRN A 840.9 Sprain/strain Shoulder/arm 12/07/2007 CHRISTA GLORIA APRN T 840.9 Sprain/strain Shoulder/arm 12/07/2007 CHRISTA GLORIA APRN 840.9 Sprain/strain Shoulder/arm 12/07/2007 COLLEEN WAYNE APRN R 840.9 Sprain/strain Shoulder/arm 12/07/2007 CHRISTA GLORIA APRN T 840.9 Sprain/strain Shoulder/arm 03/01/2008 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 03/01/2008 599.7 HEMATURIA 03/01/2008 789.00 Abdominal Pain Unspecified Site 03/01/2008 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 03/01/2008 599.7 HEMATURIA 03/01/2008 789.00 Abdominal Pain Unspecified Site 03/01/2008 MATTHEW LINDA DOA K 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 03/01/2008 LINDA DO, LUANNE K 599.7 HEMATURIA 03/01/2008 LINDA DO, LUANNE K 789.00 Abdominal Pain Unspecified Site 03/01/2008 LINDA DO LUANNE K 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 03/01/2008 LINDA DO LUANNE K 599.7 HEMATURIA 03/01/2008 LINDA DO, LUANNE K 789.00 Abdominal Pain Unspecified Site 03/01/2008 [...] Abdominal Pain Unspecified Site 03/01/2008 LINDA DO, LUANNE K 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 03/01/2008 LINDA DO, LUANNE K 599.7 HEMATURIA 03/01/2008 LINDA DO, LUANNE K 789.00 Abdominal Pain Unspecified Site 03/01/2008 LINDA DO, LUANNE K 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 03/01/2008 LINDA DO, LUANNE K 599.7 HEMATURIA 03/01/2008 LINDA DO, LUANNE K 789.00 Abdominal Pain Unspecified Site 03/01/2008 LINDA DO, LUANNE K 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 03/01/2008 LINDA DO, LUANNE K 599.7 HEMATURIA 03/01/2008 LINDA DO, LUANNE K 789.00 Abdominal Pain Unspecified Site 03/01/2008 HERNAN CRUZ MD N 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 03/01/2008 HERNAN CRUZ MD N 599.7 HEMATURIA 03/01/2008 HERNAN CRUZ MD N 789.00 Abdominal Pain Unspecified Site 03/01/2008 LINDA DO, LUANNE K 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 03/01/2008 LINDA DO, LUANNE K 599.7 HEMATURIA 03/01/2008 LINDA DO, LUANNE K 789.00 Abdominal Pain Unspecified Site 03/01/2008 LINDA DO, LUANNE K 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 03/01/2008 LINDA DO, LUANNE K 599.7 HEMATURIA 03/01/2008 LINDA DO, LUANNE K 789.00 Abdominal Pain Unspecified Site 03/01/2008 WAYNE INSULATION BATTING MACHINE OPERATOR, COLLEEN R 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 03/01/2008 ROSANA INSULATION BATTING MACHINE OPERATOR, COLLEEN R 599.7 HEMATURIA 03/01/2008 ROSANA LINGN, COLLEEN R 789.00 Abdominal Pain Unspecified Site 03/01/2008 LINDA DO, LUANNE K 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 03/01/2008 LINDA DO, LUANNE K 599.7 HEMATURIA 03/01/2008 LINDA DO, LUANNE K 789.00 Abdominal Pain Unspecified Site 03/01/2008 LINDA DO, LUANNE K 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 03/01/2008 LINDA DO, LUANNE K 599.7 HEMATURIA 03/01/2008 LINDA DO, LUANNE K 789.00 Abdominal Pain Unspecified Site 03/01/2008 LINDA DO, LUANNE K 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 03/01/2008 LINDA DO, LUANNE K 599.7 HEMATURIA 03/01/2008 LINDA DO, LUANNE K 789.00 Abdominal Pain Unspecified Site 03/01/2008 LINDA DO, LUANNE K 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 03/01/2008 LINDA DO, LUANNE K 599.7 HEMATURIA 03/01/2008 LINDA DO, LUANNE K 789.00 Abdominal Pain Unspecified Site 03/01/2008 LINDA DO, LUANNE K 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 03/01/2008 LINDA DO, LUANNE K 599.7 HEMATURIA 03/01/2008 LINDA DO, LUANNE K 789.00 Abdominal Pain Unspecified Site 03/01/2008 LINDA DO, LUANNE K 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 03/01/2008 LINDA DO, LUANNE K 599.7 HEMATURIA 03/01/2008 LINDA DO, LUANNE K 789.00 Abdominal Pain Unspecified Site 03/01/2008 ROSANA INSULATION BATTING MACHINE OPERATOR, COLLEEN R 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 03/01/2008 ROSANA INSULATION BATTING MACHINE OPERATOR, COLLEEN R 599.7 HEMATURIA 03/01/2008 PERRI WAYNE APRNRICIA R 789.00 Abdominal Pain Unspecified Site 03/01/2008 BMA RUIZ APRNIDI A 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 03/01/2008 SARA IRVIN, ONEYDA A 599.7 HEMATURIA 03/01/2008 SARA IRVIN, ONEYDA A 789.00 Abdominal Pain Unspecified Site 03/01/2008 CHRISTA GLORIA APRN 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 03/01/2008 CHRISTA GLORIA APRN T 599.7 HEMATURIA 03/01/2008 CHRISTA GLORIA APRN T 789.00 Abdominal Pain Unspecified Site 03/01/2008 CHRISTA GLORIA APRN T 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 03/01/2008 CHRISTA GLORIA APRN T 599.7 HEMATURIA 03/01/2008 CHRISTA GLORIA APRN T 789.00 Abdominal Pain Unspecified Site 03/01/2008 COLLEEN WAYNE APRN R 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 03/01/2008 MARCELO WAYNE APRNIA R 599.7 HEMATURIA 03/01/2008 COLLEEN WAYNE APRN R 789.00 Abdominal Pain Unspecified Site 03/01/2008 CHRISTA GLORIA APRN T 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 03/01/2008 CHRISTA GLORIA APRN T 599.7 HEMATURIA 03/01/2008 CHRISTA GLORIA APRN 789.00 Abdominal Pain Unspecified Site 08/10/2008 300.00 anxiety 08/10/2008 305.1 NICOTINE DEPENDENCE 08/10/2008 414.01 CORONARY ARTERY STENOSIS MULTI-VESSEL 08/10/2008 300.00 anxiety 08/10/2008 305.1 NICOTINE DEPENDENCE 08/10/2008 414.01 CORONARY ARTERY STENOSIS MULTI-VESSEL 08/10/2008 LUANNE LINDA DO 300.00 anxiety 08/10/2008 LUANNE LINDA DO 305.1 NICOTINE DEPENDENCE 08/10/2008 LUANNE LINDA DO 414.01 CORONARY ARTERY STENOSIS MULTI-VESSEL 08/10/2008 LUANNE LINDA DO K 300.00 anxiety 08/10/2008 LUANNE LINDA DO 305.1 NICOTINE DEPENDENCE 08/10/2008 LUANNE LINDA DO 414.01 CORONARY ARTERY STENOSIS MULTI-VESSEL [...] CORONARY ARTERY STENOSIS MULTI-VESSEL 08/10/2008 LINDA DO, LUANNE K 300.00 anxiety 08/10/2008 LINDA DO, LUANNE K 305.1 NICOTINE DEPENDENCE 08/10/2008 LINDA DO, LUANNE K 414.01 CORONARY ARTERY STENOSIS MULTI-VESSEL 08/10/2008 LINDA DO, LUANNE K 300.00 anxiety 08/10/2008 LINDA DO, LUANNE K 305.1 NICOTINE DEPENDENCE 08/10/2008 LINDA DO, LUANNE K 414.01 CORONARY ARTERY STENOSIS MULTI-VESSEL 08/10/2008 LINDA DO, LUANNE K 300.00 anxiety 08/10/2008 LINDA DO, LUANNE K 305.1 NICOTINE DEPENDENCE 08/10/2008 LINDA DO, LUANNE K 414.01 CORONARY ARTERY STENOSIS MULTI-VESSEL 08/10/2008 HERNAN CRUZ MD N 300.00 anxiety 08/10/2008 HERNAN CRUZ MD N 305.1 NICOTINE DEPENDENCE 08/10/2008 HERNAN CRUZ MD N 414.01 CORONARY ARTERY STENOSIS MULTI-VESSEL 08/10/2008 LINDA DO, LUANNE K 300.00 anxiety 08/10/2008 LINDA DO, LUANNE K 305.1 NICOTINE DEPENDENCE 08/10/2008 LINDA DO, LUANNE K 414.01 CORONARY ARTERY STENOSIS MULTI-VESSEL 08/10/2008 LINDA DO, LUANNE K 300.00 anxiety 08/10/2008 LINDA DO, LUANNE K 305.1 NICOTINE DEPENDENCE 08/10/2008 LINDA DO, LUANNE K 414.01 CORONARY ARTERY STENOSIS MULTI-VESSEL 08/10/2008 ROSANA IRVIN COLLEEN R 300.00 anxiety 08/10/2008 ROSANA LINGN, COLLEEN R 305.1 NICOTINE DEPENDENCE 08/10/2008 ROSANA IRVIN, COLLEEN R 414.01 CORONARY ARTERY STENOSIS MULTI-VESSEL 08/10/2008 LINDA DO, LUANNE K 300.00 anxiety 08/10/2008 LINDA DO, LUANNE K 305.1 NICOTINE DEPENDENCE 08/10/2008 LINDA DO, LUANNE K 414.01 CORONARY ARTERY STENOSIS MULTI-VESSEL 08/10/2008 LINDA DO, LUANNE K 300.00 anxiety 08/10/2008 LINDA DO, LUANNE K 305.1 NICOTINE DEPENDENCE 08/10/2008 LINDA DO, LUANNE K 414.01 CORONARY ARTERY STENOSIS MULTI-VESSEL 08/10/2008 LINDA DO, LUANNE K 300.00 anxiety 08/10/2008 LINDA DO, LUANNE K 305.1 NICOTINE DEPENDENCE 08/10/2008 LINDA DO, LUANNE K 414.01 CORONARY ARTERY STENOSIS MULTI-VESSEL 08/10/2008 LINDA DO, LUANNE K 300.00 anxiety 08/10/2008 LINDA DO, LUANNE K 305.1 NICOTINE DEPENDENCE 08/10/2008 LINDA DO, LUANNE K 414.01 CORONARY ARTERY STENOSIS MULTI-VESSEL 08/10/2008 LINDA DO, LUANNE K 300.00 anxiety 08/10/2008 LINDA DO, LUANNE K 305.1 NICOTINE DEPENDENCE 08/10/2008 LINDA DO, LUANNE K 414.01 CORONARY ARTERY STENOSIS MULTI-VESSEL 08/10/2008 LINDA DO, LUANNE K 300.00 anxiety 08/10/2008 LINDA DO, LUANNE K 305.1 NICOTINE DEPENDENCE 08/10/2008 LINDA DO, LUANNE K 414.01 CORONARY ARTERY STENOSIS MULTI-VESSEL 08/10/2008 MARC[address] WAYNE APRNIA R 300.00 anxiety 08/10/2008 MARCELO WAYNE APRNIA R 305.1 NICOTINE DEPENDENCE 08/10/2008 MARCELO WAYNE APRNIA R 414.01 CORONARY ARTERY STENOSIS MULTI-VESSEL 08/10/2008 SARAONEYDA Mead APRN A 300.00 anxiety 08/10/2008 ONEYDA RUIZ APRN A 305.1 NICOTINE DEPENDENCE 08/10/2008 ONEYDA RUIZ APRN A 414.01 CORONARY ARTERY STENOSIS MULTI-VESSEL 08/10/2008 CHRISTA GLORIA APRN T 300.00 ANXIETY 08/10/2008 CHRISTA GLORIA APRN T 305.1 NICOTINE DEPENDENCE 08/10/2008 CHRISTA GLORIA APRN T 414.01 CORONARY ARTERY STENOSIS MULTI-VESSEL 08/10/2008 CHRISTA GLORIA APRN T 300.00 ANXIETY 08/10/2008 CHRISTA GLORIA APRN T 305.1 NICOTINE DEPENDENCE 08/10/2008 CHRISTA GLORIA APRN T 414.01 CORONARY ARTERY STENOSIS MULTI-VESSEL 08/10/2008 MARCELO WAYNE APRNIA R 300.00 ANXIETY 08/10/2008 MARCELO WAYNE APRNIA R 305.1 NICOTINE DEPENDENCE 08/10/2008 ROSANA IRVIN COLLEEN R 414.01 CORONARY ARTERY STENOSIS MULTI-VESSEL 08/10/2008 CHRISTA GLORIA APRN T 300.00 ANXIETY 08/10/2008 CHRISTA GLORIA APRN T 305.1 NICOTINE DEPENDENCE 08/10/2008 CHRISTA GLORIA APRN 414.01 CORONARY ARTERY STENOSIS MULTI-VESSEL 02/13/2009 780.79 FATIGUE 02/13/2009 786.05 Shortness Of Breath 02/13/2009 780.79 FATIGUE 02/13/2009 786.05 Shortness Of Breath 02/13/2009 LINDA DO, LUANNE K 780.79 FATIGUE 02/13/2009 LINDA DO, LUANNE K 786.05 Shortness Of Breath 02/13/2009 LINDA DO, LUANNE K 780.79 FATIGUE 02/13/2009 LINDA DO, LUANNE K 786.05 Shortness Of Breath 02/13/2009 780.79 FATIGUE 02/13/2009 786.05 Shortness Of Breath 02/13/2009 780.79 FATIGUE 02/13/2009 786.05 Shortness Of Breath 02/13/2009 780.79 FATIGUE 02/13/2009 786.05 Shortness Of Breath 02/13/2009 780.79 FATIGUE 02/13/2009 786.05 Shortness Of Breath 02/13/2009 780.79 FATIGUE 02/13/2009 786.05 Shortness Of Breath 02/13/2009 780.79 FATIGUE 02/13/2009 786.05 Shortness Of Breath 02/13/2009 LINDA DO, LUANNE K 780.79 FATIGUE 02/13/2009 LINDA DO, LUANNE K 786.05 Shortness Of Breath 02/13/2009 LINDA DO, LUANNE K 780.79 FATIGUE 02/13/2009 LINDA DO, LUANNE K 786.05 Shortness Of Breath 02/13/2009 LINDA DO, LUANNE K 780.79 FATIGUE 02/13/2009 LINDA DO, LUANNE K 786.05 Shortness Of Breath 02/13/2009 HERNAN CRUZ MD 780.79 FATIGUE 02/13/2009 HERNAN CRUZ MD 786.05 Shortness Of Breath 02/13/2009 LINDA DO, LUANNE K 780.79 FATIGUE 02/13/2009 LINDA DO, LUANNE K 786.05 Shortness Of Breath 02/13/2009 LINDA DO, LUANNE K 780.79 FATIGUE 02/13/2009 LINDA DO, LUANNE K 786.05 Shortness Of Breath 02/13/2009 ROSANA IRVIN, COLLEEN R 780.79 FATIGUE 02/13/[address]NE APRNRICIA R 786.05 Shortness Of Breath 02/13/2009 LINDA DO, LUANNE K 780.79 FATIGUE 02/13/2009 LINDA DO, LUANNE K 786.05 Shortness Of Breath 02/13/2009 LINDA DO, LUANNE K 780.79 FATIGUE 02/13/2009 LINDA DO, LUANNE K 786.05 Shortness Of Breath 02/13/2009 LINDA DO, LUANNE K 780.79 FATIGUE 02/13/2009 LINDA DO, LUANNE K 786.05 Shortness Of Breath 02/13/2009 LINDA DO, LUANNE K 780.79 FATIGUE 02/13/2009 LINDA DO, LUANNE K 786.05 Shortness Of Breath 02/13/2009 LINDA DO, LUANNE K 780.79 FATIGUE 02/13/2009 LINDA DO, LUANNE K 786.05 Shortness Of Breath 02/13/2009 LINDA DO, LUANNE K 780.79 FATIGUE 02/13/2009 LINDA DO, LUANNE K 786.05 Shortness Of Breath 02/13/[address]ARC[address]O WAYNE APRNIA R 780.79 FATIGUE 02/13/2009 PERRI WAYNE APRNRICIA R 786.05 Shortness Of Breath 02/13/2009 ONEYDA RUIZ APRN A 780.79 FATIGUE 02/13/2009 BAM RUIZ APRNIDI A 786.05 Shortness Of Breath 02/13/2009 CHRISTA GLORIA APRN T 780.79 FATIGUE 02/13/2009 CHRISTA GLORIA APRN 786.05 Shortness Of Breath 02/13/2009 CHRISTA GLORIA APRN T 780.79 FATIGUE 02/13/2009 CHRISTA GLORIA APRN T 786.05 Shortness Of Breath 02/13/2009 MARCELO WAYNE APRNIA R 780.79 FATIGUE 02/13/2009 MARCELO WAYNE APRNIA R 786.05 Shortness Of Breath 02/13/2009 CHRISTA GLORIA APRN T 780.79 FATIGUE 02/13/2009 CHRISTA GLORIA APRN T 786.05 Shortness Of Breath 03/27/2009 466.0 Acute Bronchitis 03/27/2009 466.0 Acute Bronchitis 03/27/2009 LINDA DO, LUANNE K 466.0 Acute Bronchitis 03/27/2009 LINDA DO, LUANNE K 466.0 Acute Bronchitis 03/27/2009 466.0 Acute Bronchitis 03/27/2009 466.0 Acute Bronchitis 03/27/2009 466.0 Acute Bronchitis 03/27/2009 466.0 Acute Bronchitis 03/27/2009 466.0 Acute Bronchitis 03/27/2009 466.0 Acute Bronchitis 03/27/2009 LINDA DO, LUANNE K 466.0 Acute Bronchitis 03/27/2009 LINDA DO, LUANNE K 466.0 Acute Bronchitis 03/27/2009 LINDA DO, LUANNE K 466.0 Acute Bronchitis 03/27/2009 ANTHONY CRYSTAL, HERNAN Mead 466.0 Acute Bronchitis 03/27/2009 LINDA DO, LUANNE K 466.0 Acute Bronchitis 03/27/2009 LINDA DO, LUANNE K 466.0 Acute Bronchitis 03/27/[address] APRN R 466.0 Acute Bronchitis 03/27/2009 LINDA DO, LUANNE K 466.0 Acute Bronchitis 03/27/2009 LINDA DO, LUANNE K 466.0 Acute Bronchitis 03/27/2009 LINDA DO, LUANNE K 466.0 Acute Bronchitis 03/27/2009 LINDA DO, LUANNE K 466.0 Acute Bronchitis 03/27/2009 LINDA DO, LUANNE K 466.0 Acute Bronchitis 03/27/2009 LINDA DO, LUANNE K 466.0 Acute Bronchitis 03/27/2009 [address]LEEN WAYNE APRN R 466.0 Acute Bronchitis 03/27/2009 ONEYDA RUIZ APRN A 466.0 Acute Bronchitis 03/27/2009 CHRISTA GLORIA APRN 466.0 Acute Bronchitis 03/27/2009 CHRISTA GLORIA APRN 466.0 Acute Bronchitis 03/27/[address]NE APRN R 466.0 Acute Bronchitis 03/27/2009 CHRISTA GLORIA APRN 466.0 Acute Bronchitis 05/10/2009 625.8 Vulvar [place]ump Or Mass 05/10/2009 V72.31 Test Deck Supervisor Exam, Routine 05/10/2009 625.8 [place] 05/10/2009 V72.31 Test Deck Supervisor Exam, Routine 05/10/2009 LINDA DO, LUANNE K 625.8 [place] 05/10/2009 LINDA DO, LUANNE K V72.31 Test Deck Supervisor Exam, Routine 05/10/2009 LINDA DO, LUANNE K 625.8 [place] 05/10/2009 LINDA DO, LUANNE K V72.31 Test Deck Supervisor Exam, Routine 05/10/2009 625.8 [place] 05/10/2009 V72.31 Test Deck Supervisor Exam, Routine 05/10/2009 625.8 [place] 05/10/2009 V72.31 Test Deck Supervisor Exam, Routine 05/10/2009 625.8 [place] 05/10/2009 V72.31 Test Deck Supervisor Exam, Routine 05/10/2009 625.8 [place] 05/10/2009 V72.31 Test Deck Supervisor Exam, Routine 05/10/2009 625.8 [place] 05/10/2009 V72.31 Test Deck Supervisor Exam, Routine 05/10/2009 625.8 [place] 05/10/2009 V72.31 Test Deck Supervisor Exam, Routine 05/10/2009 LINDA DO LUANNE K 625.8 [place] 05/10/2009 LINDA DO LUANNE K V72.31 Test Deck Supervisor Exam, Routine 05/10/2009 LINDA DO LUANNE K 625.8 [place] 05/10/2009 LINDA DO LUANNE K V72.31 Test Deck Supervisor Exam, Routine 05/10/2009 LINDA DO LUANNE K 625.8 [place] 05/10/2009 LINDA DO LUANNE K V72.31 Test Deck Supervisor Exam, Routine 05/10/2009 NATHONY CRYSTAL, HERNAN Mead 625.8 [place] 05/10/2009 ANTHONY CRYSTAL, HERNAN Mead V72.31 Test Deck Supervisor Exam, Routine 05/10/2009 LINDA DO LUANNE K 625.8 [place] 05/10/2009 LINDA DO LUANNE K V72.31 Test Deck Supervisor Exam, Routine 05/10/2009 LINDA DO LUANNE K 625.8 [place] 05/10/2009 LINDA DO LUANNE K V72.31 Test Deck Supervisor Exam, Routine 05/10/[address]NE APRNIA R 625.8 [place] 05/10/2009 PERRI WAYNE APRNRICIA R V72.31 Test Deck Supervisor Exam, Routine 05/10/2009 LINDA DO LUANNE K 625.8 [place] 05/10/2009 LINDA DO LUANNE K V72.31 Test Deck Supervisor Exam, Routine 05/10/2009 LINDA DO, LUANNE K 625.8 [place] 05/10/2009 LINDA DO, LUANNE K V72.31 Test Deck Supervisor Exam, Routine 05/10/2009 LINDA DO, LUANNE K 625.8 [place] 05/10/2009 LINDA DO, LUANNE K V72.31 Test Deck Supervisor Exam, Routine 05/10/2009 LINDA DO, LUANNE K 625.8 [place] 05/10/2009 LINDA DO, LUANNE K V72.31 Test Deck Supervisor Exam, Routine 05/10/2009 LINDA DO, LUANNE K 625.8 [place] 05/10/2009 LINDA DO, LUANNE K V72.31 Test Deck Supervisor Exam, Routine 05/10/2009 LINDA DO, LUANNE K 625.8 [place] 05/10/2009 LINDA DO, LUANNE K V72.31 Test Deck Supervisor Exam, Routine 05/10/2009 COLLEEN WAYNE APRN R 625.8 [place] 05/10/2009 COLLEEN WAYNE APRN R V72.31 Test Deck Supervisor Exam, Routine 05/10/2009 ONEYDA RUIZ APRN A 625.8 [place] 05/10/2009 ONEYDA RUIZ APRN A V72.31 Test Deck Supervisor Exam, Routine 05/10/2009 CHRISTA GLORIA APRN 625.8 [place] 05/10/2009 CHRISTA GLORIA APRN V72.31 Test Deck Supervisor Exam, Routine 05/10/2009 CHRISTA GLORIA APRN 625.8 [place] 05/10/2009 CHRISTA GLORIA APRN V72.31 Test Deck Supervisor Exam, Routine 05/10/2009 COLLEEN WAYNE APRN R 625.8 [place] 05/10/2009 MARCELO WAYNE APRNIA R V72.31 Test Deck Supervisor Exam, Routine 05/10/2009 CHRISTA GLORIA APRN 625.8 [place] 05/10/2009 CHRISTA GLORIA APRN V72.31 Test Deck Supervisor Exam, Routine 06/08/2009 788.31 URGE INCONTINENCE OF URINE 06/08/2009 788.31 URGE INCONTINENCE OF URINE 06/08/2009 LINDA DO LUANNE K 788.31 URGE INCONTINENCE OF URINE 06/08/2009 LINDA DO, LUANNE K 788.31 URGE INCONTINENCE OF URINE 06/08/2009 788.31 URGE INCONTINENCE OF URINE 06/08/2009 788.31 URGE INCONTINENCE OF URINE 06/08/2009 788.31 URGE INCONTINENCE OF URINE 06/08/2009 788.31 URGE INCONTINENCE OF URINE 06/08/2009 788.31 URGE INCONTINENCE OF URINE 06/08/2009 788.31 URGE INCONTINENCE OF URINE 06/08/2009 LINDA DO, LUANNE K 788.31 URGE INCONTINENCE OF URINE 06/08/2009 LINDA DO, LUANNE K 788.31 URGE INCONTINENCE OF URINE 06/08/2009 LINDA DO, LUANNE K 788.31 URGE INCONTINENCE OF URINE 06/08/2009 ANTHONY CRYSTAL, HERNAN Mead 788.31 URGE INCONTINENCE OF URINE 06/08/2009 LINDA DO, LUANNE K 788.31 URGE INCONTINENCE OF URINE 06/08/2009 LINDA DO, LUANNE K 788.31 URGE INCONTINENCE OF URINE 06/08/2009 COLLEEN WAYNE APRN R 788.31 URGE INCONTINENCE OF URINE 06/08/2009 LINDA DO, LUANNE K 788.31 URGE INCONTINENCE OF URINE 06/08/2009 LINDA DO, LUANNE K 788.31 URGE INCONTINENCE OF URINE 06/08/2009 LINDA DO, LUANNE K 788.31 URGE INCONTINENCE OF URINE 06/08/2009 LINDA DO, LUANNE K 788.31 URGE INCONTINENCE OF URINE 06/08/2009 LINDA DO, LUANNE K 788.31 URGE INCONTINENCE OF URINE 06/08/2009 LINDA DO, LUANNE K 788.31 URGE INCONTINENCE OF URINE 06/08/2009 COLLEEN WAYNE APRN R 788.31 URGE INCONTINENCE OF URINE 06/08/2009 ONEYDA RUIZ APRN 788.31 URGE INCONTINENCE OF URINE 06/08/2009 CHRISTA GLORIA APRN 788.31 URGE INCONTINENCE OF URINE 06/08/2009 CHRISTA GLORIA APRN 788.31 URGE INCONTINENCE OF URINE 06/08/2009 COLLEEN WAYNE APRN R 788.31 URGE INCONTINENCE OF URINE 06/08/2009 CHRISTA GLORIA APRN 788.31 URGE INCONTINENCE OF URINE 12/16/2009 724.5 BACKACHE 12/16/2009 724.5 BACKACHE 12/16/2009 LINDA DO, LUANNE K 724.5 BACKACHE 12/16/2009 LINDA DO, LUANNE K 724.5 BACKACHE 12/16/2009 724.5 BACKACHE 12/16/2009 724.5 BACKACHE 12/16/2009 724.5 BACKACHE 12/16/2009 724.5 BACKACHE 12/16/2009 724.5 BACKACHE 12/16/2009 724.5 BACKACHE 12/16/2009 LINDA DO, LUANNE K 724.5 BACKACHE 12/16/2009 LINDA DO, LUANNE K 724.5 BACKACHE 12/16/2009 LINDA DO, LUANNE K 724.5 BACKACHE 12/16/2009 ANTHONY CRYSTAL, HERNAN Mead 724.5 BACKACHE 12/16/2009 LINDA DO, LUANNE K 724.5 BACKACHE 12/16/2009 LINDA DO, LUANNE K 724.5 BACKACHE 12/16/[address]NE APRN R 724.5 BACKACHE 12/16/2009 LINDA DO, LUANNE K 724.5 BACKACHE 12/16/2009 LINDA DO, LUANNE K 724.5 BACKACHE 12/16/2009 LINDA DO, LUANNE K 724.5 BACKACHE 12/16/2009 LINDA DO, LUANNE K 724.5 BACKACHE 12/16/2009 LINDA DO, LUANNE K 724.5 BACKACHE 12/16/2009 LINDA DO, LUANNE K 724.5 BACKACHE 12/16/2009 [address]NE APRN 724.5 BACKACHE 12/16/2009 ONEYDA RUIZ APRN 724.5 BACKACHE 12/16/2009 CHRISTA GLORIA APRN 724.5 BACKACHE 12/16/2009 CHRISTA GLORIA APRN 724.5 BACKACHE 12/16/[address] APRN R 724.5 BACKACHE 12/16/2009 CHRISTA GLORIA APRN 724.5 BACKACHE 06/19/2010 719.40 joint pain, localized 06/19/2010 783.5 Excessive Thirst / Fluid Intake (polydypsia) 06/19/2010 788.42 Frequent, Full- bladder Emptying (polyuria) 06/19/2010 719.40 joint pain, localized 06/19/2010 783.5 Excessive Thirst / Fluid Intake (polydypsia) 06/19/2010 788.42 Frequent, Full- bladder Emptying (polyuria) 06/19/2010 MATTHEW LINDA DOA K 719.40 joint pain, localized 06/19/2010 MADDI DOMATTHEWA K 783.5 Excessive Thirst / Fluid Intake (polydypsia) 06/19/2010 MATTHEW LINDA DOA K 788.42 Frequent, Full-bladder Emptying (polyuria) 06/19/2010 MATTHEW LINDA DOA K 719.40 joint pain, localized 06/19/2010 MATTHEW LINDA DOA K 783.5 Excessive Thirst / Fluid Intake (polydypsia) 06/19/2010 MATTHEW LINDA DOA K 788.42 Frequent, Full-bladder Emptying (polyuria) 06/19/2010 719.40 joint pain, localized 06/19/2010 783.5 Excessive Thirst / Fluid Intake (polydypsia) 06/19/2010 788.42 Frequent, Full- bladder Emptying (polyuria) 06/19/2010 719.40 joint pain, localized 06/19/2010 783.5 Excessive Thirst / Fluid Intake (polydypsia) 06/19/2010 788.42 Frequent, Full- bladder Emptying (polyuria) 06/19/2010 719.40 joint pain, localized 06/19/2010 783.5 Excessive Thirst / Fluid Intake (polydypsia) 06/19/2010 788.42 Frequent, Full- bladder Emptying (polyuria) 06/19/2010 719.40 joint pain, localized 06/19/2010 783.5 Excessive Thirst / Fluid Intake (polydypsia) 06/19/2010 788.42 Frequent, Full- bladder Emptying (polyuria) 06/19/2010 719.40 joint pain, localized 06/19/2010 783.5 Excessive Thirst / Fluid Intake (polydypsia) 06/19/2010 788.42 Frequent, Full- bladder Emptying (polyuria) 06/19/2010 719.40 joint pain, localized 06/19/2010 783.5 Excessive Thirst / Fluid Intake (polydypsia) 06/19/2010 788.42 Frequent, Full- bladder Emptying (polyuria) 06/19/2010 LINDA DO, LUANNE K 719.40 joint pain, localized 06/19/2010 LINDA DO, LUANNE K 783.5 Excessive Thirst / Fluid Intake (polydypsia) 06/19/2010 LINDA DO, LUANNE K 788.42 Frequent, Full-bladder Emptying (polyuria) 06/19/2010 LINDA DO, LUANNE K 719.40 joint pain, localized 06/19/2010 LINDA DO, LUANNE K 783.5 Excessive Thirst / Fluid Intake (polydypsia) 06/19/2010 LINDA DO, LUANNE K 788.42 Frequent, Full-bladder Emptying (polyuria) 06/19/2010 LINDA DO, LUANNE K 719.40 joint pain, localized 06/19/2010 LINDA DO, LUANNE K 783.5 Excessive Thirst / Fluid Intake (polydypsia) 06/19/2010 LINDA DO, LUANNE K 788.42 Frequent, Full-bladder Emptying (polyuria) 06/19/2010 HERNAN CRUZ MD N 719.40 joint pain, localized 06/19/2010 HERNAN CRUZ MD N 783.5 Excessive Thirst / Fluid Intake (polydypsia) 06/19/2010 HERNAN CRUZ MD N 788.42 Frequent, Full-bladder Emptying (polyuria) 06/19/2010 LINDA DO, LUANNE K 719.40 joint pain, localized 06/19/2010 LINDA DO, LUANNE K 783.5 Excessive Thirst / Fluid Intake (polydypsia) 06/19/2010 LINDA DO, LUANNE K 788.42 Frequent, Full-bladder Emptying (polyuria) 06/19/2010 LINDA DO, LUANNE K 719.40 joint pain, localized 06/19/2010 LINDA DO, LUANNE K 783.5 Excessive Thirst / Fluid Intake (polydypsia) 06/19/2010 LINDA DO, LUANNE K 788.42 Frequent, Full-bladder Emptying (polyuria) 06/19/2010 ROSANA INSULATION BATTING MACHINE OPERATORPERRICOLLEEN R 719.40 joint pain, localized 06/19/2010 ROSANA INSULATION BATTING MACHINE OPERATOR, COLLEEN R 783.5 Excessive Thirst / Fluid Intake (polydypsia) 06/19/2010 ROSANA LINGN COLLEEN R 788.42 Frequent, Full-bladder Emptying (polyuria) 06/19/2010 LINDA DO, LUANNE K 719.40 joint pain, localized 06/19/2010 LINDA DO, LUANNE K 783.5 Excessive Thirst / Fluid Intake (polydypsia) 06/19/2010 LINDA DO, LUANNE K 788.42 Frequent, Full-bladder Emptying (polyuria) 06/19/2010 LINDA DO, LUANNE K 719.40 joint pain, localized 06/19/2010 LINDA DO, LUANNE K 783.5 Excessive Thirst / Fluid Intake (polydypsia) 06/19/2010 LINDA DO, LUANNE K 788.42 Frequent, Full-bladder Emptying (polyuria) 06/19/2010 LINDA DO, LUANNE K 719.40 joint pain, localized 06/19/2010 LINDA DO, LUANNE K 783.5 Excessive Thirst / Fluid Intake (polydypsia) 06/19/2010 LINDA DO, LUANNE K 788.42 Frequent, Full-bladder Emptying (polyuria) 06/19/2010 LINDA DO, LUANNE K 719.40 joint pain, localized 06/19/2010 LINDA DO, LUANNE K 783.5 Excessive Thirst / Fluid Intake (polydypsia) 06/19/2010 LINDA DO, LUANNE K 788.42 Frequent, Full-bladder Emptying (polyuria) 06/19/2010 LINDA DO, LUANNE K 719.40 joint pain, localized 06/19/2010 LINDA DO, LUANNE K 783.5 Excessive Thirst / Fluid Intake (polydypsia) 06/19/2010 LINDA DO, LUANNE K 788.42 Frequent, Full-bladder Emptying (polyuria) 06/19/2010 LINDA DO, LUANNE K 719.40 joint pain, localized 06/19/2010 LINDA DO, LUANNE K 783.5 Excessive Thirst / Fluid Intake (polydypsia) 06/19/2010 LINDA DO, LUANNE K 788.42 Frequent, Full-bladder Emptying (polyuria) 06/19/2010 ROSANA INSULATION BATTING MACHINE OPERATOR, COLLEEN R 719.40 joint pain, localized 06/19/2010 WAYNE INSULATION BATTING MACHINE OPERATOR, COLLEEN R 783.5 Excessive Thirst / Fluid Intake (polydypsia) 06/19/2010 ROSANA INSULATION BATTING MACHINE OPERATOR COLLEEN R 788.42 Frequent, Full-bladder Emptying (polyuria) 06/19/2010 SARA LIGNONEYDA Mead A 719.40 joint pain, localized 06/19/2010 SARA LINGONEYDA Mead A 783.5 Excessive Thirst / Fluid Intake (polydypsia) 06/19/2010 SARA INSULATION BATTING MACHINE OPERATORONEYDA Mead A 788.42 Frequent, Full-bladder Emptying (polyuria) 06/19/2010 [...] HYPERLIPIDEMIA 09/25/2010 272.4 HYPERLIPIDEMIA 09/25/2010 LINDA DO, LUANNE K 272.4 HYPERLIPIDEMIA 09/25/2010 LINDA DO, LUANNE K 272.4 HYPERLIPIDEMIA 09/25/2010 272.4 HYPERLIPIDEMIA 09/25/2010 272.4 HYPERLIPIDEMIA 09/25/2010 272.4 HYPERLIPIDEMIA 09/25/2010 272.4 HYPERLIPIDEMIA 09/25/2010 272.4 HYPERLIPIDEMIA 09/25/2010 272.4 HYPERLIPIDEMIA 09/25/2010 LINDA DO, LUANNE K 272.4 HYPERLIPIDEMIA 09/25/2010 LINDA DO, LUANNE K 272.4 HYPERLIPIDEMIA 09/25/2010 LINDA DO, LUANNE K 272.4 HYPERLIPIDEMIA 09/25/2010 ANTHONY CRYSTAL, HERNAN N 272.4 HYPERLIPIDEMIA 09/25/2010 LINDA DO, LUANNE K 272.4 HYPERLIPIDEMIA 09/25/2010 LINDA DO, LUANNE K 272.4 HYPERLIPIDEMIA 09/25/2010 WAYNE INSULATION BATTING MACHINE OPERATOR, COLLEEN R 272.4 HYPERLIPIDEMIA 09/25/2010 LINDA DO, LUANNE K 272.4 HYPERLIPIDEMIA 09/25/2010 LINDA DO, LUANNE K 272.4 HYPERLIPIDEMIA 09/25/2010 LINDA DO, LUANNE K 272.4 HYPERLIPIDEMIA 09/25/2010 LINDA DO, LUANNE K 272.4 HYPERLIPIDEMIA 09/25/2010 LINDA DO, LUANNE K 272.4 HYPERLIPIDEMIA 09/25/2010 LINDA DO, LUANNE K 272.4 HYPERLIPIDEMIA 09/25/2010 WAYNE INSULATION BATTING MACHINE OPERATOR, COLLEEN R 272.4 HYPERLIPIDEMIA 09/25/2010 SARA INSULATION BATTING MACHINE OPERATOR, ONEYDA A 272.4 HYPERLIPIDEMIA 09/25/2010 FAIZAN INSULATION BATTING MACHINE OPERATOR, CHRISTA T 272.4 HYPERLIPIDEMIA 09/25/2010 FAIZAN INSULATION BATTING MACHINE OPERATOR, CHRISTA T 272.4 HYPERLIPIDEMIA 09/25/2010 WAYNE INSULATION BATTING MACHINE OPERATOR, COLLEEN R 272.4 HYPERLIPIDEMIA 09/25/2010 FAIZAN INSULATION BATTING MACHINE OPERATOR, CHRISTA T 272.4 HYPERLIPIDEMIA 10/15/2010 710.0 Systemic Lupus Erythematosus 10/15/2010 710.0 Systemic Lupus Erythematosus 10/15/2010 LINDA DO, LUANNE K 710.0 Systemic Lupus Erythematosus 10/15/2010 LINDA DO, LUANNE K 710.0 Systemic Lupus Erythematosus 10/15/2010 710.0 Systemic Lupus Erythematosus 10/15/2010 710.0 Systemic Lupus Erythematosus 10/15/2010 710.0 Systemic Lupus Erythematosus 10/15/2010 710.0 Systemic Lupus Erythematosus 10/15/2010 710.0 Systemic Lupus Erythematosus 10/15/2010 710.0 Systemic Lupus Erythematosus 10/15/2010 LINDA DO, LUANNE K 710.0 Systemic Lupus Erythematosus 10/15/2010 LNIDA DO, LUANNE K 710.0 Systemic Lupus Erythematosus 10/15/2010 LINDA DO, LUANNE K 710.0 Systemic Lupus Erythematosus 10/15/2010 HERNAN CRUZ MD 710.0 Systemic Lupus Erythematosus 10/15/2010 LINDA DO, LUANNE K 710.0 Systemic Lupus Erythematosus 10/15/2010 LINDA DO, LUANNE K 710.0 Systemic Lupus Erythematosus 10/15/2010 ROSANA INSULATION BATTING MACHINE OPERATORMARCELOIA R 710.0 Systemic Lupus Erythematosus 10/15/2010 LINDA DO, LUANNE K 710.0 Systemic Lupus Erythematosus 10/15/2010 LINDA DO, LUANNE K 710.0 Systemic Lupus Erythematosus 10/15/2010 LINDA DO, LUANNE K 710.0 Systemic Lupus Erythematosus 10/15/2010 LINDA DO, LUANNE K 710.0 Systemic Lupus Erythematosus 10/15/2010 LINDA DO, LUANNE K 710.0 Systemic Lupus Erythematosus 10/15/2010 LINDA DO, LUANNE K 710.0 Systemic Lupus Erythematosus 10/15/2010 ROSANA INSULATION BATTING MACHINE OPERATORCOLLEEN R 710.0 Systemic Lupus Erythematosus 10/15/2010 SARA IRVIN, ONEYDA Eden 710.0 Systemic Lupus Erythematosus 10/15/2010 CHRISTA GLORIA APRN 710.0 Systemic Lupus Erythematosus 10/15/2010 CHRISTA GLORIA APRN 710.0 Systemic Lupus Erythematosus 10/15/2010 COLLEEN WAYNE APRN R 710.0 Systemic Lupus Erythematosus 10/15/2010 CHRISTA GLORIA APRN T 710.0 Systemic Lupus Erythematosus 02/18/2011 268.9 VITAMIN D DEFICIENCY 02/18/2011 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 02/18/2011 V58.69 taking high-risk medication 02/18/2011 268.9 VITAMIN D DEFICIENCY 02/18/2011 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 02/18/2011 V58.69 taking high-risk medication 02/18/2011 LINDA DO, LUANNE K 268.9 VITAMIN D DEFICIENCY 02/18/2011 LINDA DO, LUANNE K 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 02/18/2011 LINDA DO, LUANNE K V58.69 taking high-risk medication 02/18/2011 LINDA DO, LUANNE K 268.9 VITAMIN D DEFICIENCY 02/18/2011 LINDA DO, LUANNE K 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 02/18/2011 LINDA DO, LUANNE K V58.69 taking high-risk medication 02/18/2011 268.9 VITAMIN D DEFICIENCY 02/18/2011 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 02/18/2011 V58.69 taking high-risk medication 02/18/2011 268.9 VITAMIN D DEFICIENCY 02/18/2011 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 02/18/2011 V58.69 taking high-risk medication 02/18/2011 268.9 VITAMIN D DEFICIENCY 02/18/2011 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 02/18/2011 V58.69 taking high-risk medication 02/18/2011 268.9 VITAMIN D DEFICIENCY 02/18/2011 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 02/18/2011 V58.69 taking high-risk medication 02/18/2011 268.9 VITAMIN D DEFICIENCY 02/18/2011 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 02/18/2011 V58.69 taking high-risk medication 02/18/2011 268.9 VITAMIN D DEFICIENCY 02/18/2011 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 02/18/2011 V58.69 taking high-risk medication 02/18/2011 LINDA DO, LUANNE K 268.9 VITAMIN D DEFICIENCY 02/18/2011 LINDA DO, LUANNE K 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 02/18/2011 LINDA DO, LUANNE K V58.69 taking high-risk medication 02/18/2011 LINDA DO, LUANNE K 268.9 VITAMIN D DEFICIENCY 02/18/2011 LINDA DO, LUANNE K 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 02/18/2011 LINDA DO, LUANNE K V58.69 taking high-risk medication 02/18/2011 LINDA DO, LUANNE K 268.9 VITAMIN D DEFICIENCY 02/18/2011 LINDA DO, LUANNE K 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 02/18/2011 LINDA DO, LUANNE K V58.69 taking high-risk medication 02/18/2011 HERNAN CRUZ MD 268.9 VITAMIN D DEFICIENCY 02/18/2011 HERNAN CRUZ MD 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 02/18/2011 HERNAN CRUZ MD V58.69 taking high-risk medication 02/18/2011 LINDA DO, LUANNE K 268.9 VITAMIN D DEFICIENCY 02/18/2011 LINDA DO, LUANNE K 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 02/18/2011 LINDA DO, LUANNE K V58.69 taking high-risk medication 02/18/2011 LINDA DO, LUANNE K 268.9 VITAMIN D DEFICIENCY 02/18/2011 LINDA DO, LUANNE K 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 02/18/2011 LINDA DO, LUANNE K V58.69 taking high-risk medication 02/18/2011 COLLEEN WAYNE APRN 268.9 VITAMIN D DEFICIENCY 02/18/2011 MARCELO WAYNE APRNIA R 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 02/18/2011 MARCELO WAYNE APRNIA R V58.69 taking high-risk medication 02/18/2011 LINDA DO, LUANNE K 268.9 VITAMIN D DEFICIENCY 02/18/2011 LINDA DO, LUANNE K 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 02/18/2011 LINDA DO, LUANNE K V58.69 taking high-risk medication 02/18/2011 LINDA DO, LUANNE K 268.9 VITAMIN D DEFICIENCY 02/18/2011 LINDA DO, LUANNE K 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 02/18/2011 LINDA DO, LUANNE K V58.69 taking high-risk medication 02/18/2011 LINDA DO, LUANNE K 268.9 VITAMIN D DEFICIENCY 02/18/2011 LINDA DO, LUANNE K 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 02/18/2011 LINDA DO, LUANNE K V58.69 taking high-risk medication 02/18/2011 LINDA DO, LUANNE K 268.9 VITAMIN D DEFICIENCY 02/18/2011 LINDA DO, LUANNE K 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 02/18/2011 LINDA DO, LUANNE K V58.69 taking high-risk medication 02/18/2011 LINDA DO, LUANNE K 268.9 VITAMIN D DEFICIENCY 02/18/2011 LINDA DO, LUANNE K 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 02/18/2011 LINDA DO, LUANNE K V58.69 taking high-risk medication 02/18/2011 LINDA DO, LUANNE K 268.9 VITAMIN D DEFICIENCY 02/18/2011 LINDA DO, LUANNE K 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 02/18/2011 LINDA DO, LUANNE K V58.69 taking high-risk medication 02/18/2011 PERRI WAYNE APRNRICIA R 268.9 VITAMIN D DEFICIENCY 02/18/2011 MARCELO WAYNE APRNIA R 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 02/18/2011 PERRI WAYNE APRNRICIA R V58.69 taking high-risk medication 02/18/2011 SARAAlyce IRVIN ONEYDA A 268.9 VITAMIN D DEFICIENCY 02/18/2011 SARA LINGN ONEYDA A 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 02/18/2011 SARA IRVIN ONEYDA A V58.69 taking high-risk medication 02/18/2011 CHRISTA GLORIA APRN T 268.9 VITAMIN D DEFICIENCY 02/18/2011 CHRISTA GLORIA APRN T 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 02/18/2011 CHRISTA GLORIA APRN V58.69 taking high-risk medication 02/18/2011 CHRISTA GLORIA APRN T 268.9 VITAMIN D DEFICIENCY 02/18/2011 CHRISTA GLORIA APRN T 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 CONNECTIVE [...] 09/10/2011 V76.47 VAGINAL PAP SMEAR SCREENING 09/10/2011 LUANNE LINDA DO V76.10 BREAST CANCER SCREENING 09/10/2011 LUANNE LINDA DO V76.47 VAGINAL PAP SMEAR SCREENING 09/10/2011 LUANNE LINDA DO V76.10 BREAST CANCER SCREENING 09/10/2011 LUANNE LINDA DO V76.47 VAGINAL PAP SMEAR SCREENING [...] VAGINAL PAP SMEAR SCREENING 09/10/2011 LINDA DO, LUANNE K V76.10 BREAST CANCER SCREENING 09/10/2011 LINDA DO, LUANNE K V76.47 VAGINAL PAP SMEAR SCREENING 09/10/2011 LINDA DO, LUANNE K V76.10 BREAST CANCER SCREENING 09/10/2011 LINDA DO, LUANNE K V76.47 VAGINAL PAP SMEAR SCREENING 09/10/2011 LINDA DO, LUANNE K V76.10 BREAST CANCER SCREENING 09/10/2011 LINDA DO, LUANNE K V76.47 VAGINAL PAP SMEAR SCREENING 09/10/2011 ANTHONY CRYSTAL, HERNAN N V76.10 BREAST CANCER SCREENING 09/10/2011 HERNAN CRUZ MD V76.47 VAGINAL PAP SMEAR SCREENING 09/10/2011 LINDA DO, LUANNE K V76.10 BREAST CANCER SCREENING 09/10/2011 LINDA DO, LUANNE K V76.47 VAGINAL PAP SMEAR SCREENING 09/10/2011 LINDA DO, LUANNE K V76.10 BREAST CANCER SCREENING 09/10/2011 LINDA DO, LUANNE K V76.47 VAGINAL PAP SMEAR SCREENING 09/10/2011 ROSANA IRVIN COLLEEN R V76.10 BREAST CANCER SCREENING 09/10/2011 ROSANA IRVIN COLLEEN R V76.47 VAGINAL PAP SMEAR SCREENING 09/10/2011 LINDA DO, LUANNE K V76.10 BREAST CANCER SCREENING 09/10/2011 LINDA DO, LUANNE K V76.47 VAGINAL PAP SMEAR SCREENING 09/10/2011 LINDA DO, LUANNE K V76.10 BREAST CANCER SCREENING 09/10/2011 LINDA DO, LUANNE K V76.47 VAGINAL PAP SMEAR SCREENING 09/10/2011 LINDA DO, LUANNE K V76.10 BREAST CANCER SCREENING 09/10/2011 LINDA DO, LUANNE K V76.47 VAGINAL PAP SMEAR SCREENING 09/10/2011 LINDA DO, LUANNE K V76.10 BREAST CANCER SCREENING 09/10/2011 LINDA DO, LUANNE K V76.47 VAGINAL PAP SMEAR SCREENING 09/10/2011 LINDA DO, LUANNE K V76.10 BREAST CANCER SCREENING 09/10/2011 LINDA DO, LUANNE K V76.47 VAGINAL PAP SMEAR SCREENING 09/10/2011 LINDA DO, LUANNE K V76.10 BREAST CANCER SCREENING 09/10/2011 LINDA DO, LUANNE K V76.47 VAGINAL PAP SMEAR SCREENING 09/10/2011 ROSANA IRVIN, COLLEEN R V76.10 BREAST CANCER SCREENING 09/10/2011 COLLEEN WAYNE APRN R V76.47 VAGINAL PAP SMEAR SCREENING 09/10/2011 ONEYDA RUIZ APRN A V76.10 BREAST CANCER SCREENING 09/10/2011 ONEYDA RUIZ APRN A V76.47 VAGINAL PAP SMEAR SCREENING 09/10/2011 CHRISTA GLORIA APRN T V76.10 BREAST CANCER SCREENING 09/10/2011 CHRISTA GLORIA APRN T V76.47 VAGINAL PAP SMEAR SCREENING 09/10/2011 CHRISTA [...] C CHRONIC 11/11/2011 702.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 11/11/2011 LUANNE LINDA DO K 070.54 HEPATITIS C CHRONIC 11/11/2011 LUANNE LINDA DO K 702.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 11/11/2011 LUANNE LINDA DO K 070.54 HEPATITIS C CHRONIC 11/11/2011 LUANNE LINDA DO K 702.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 11/11/2011 070.54 HEPATITIS C CHRONIC 11/11/2011 702.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 11/11/2011 070.54 HEPATITIS C CHRONIC 11/11/2011 702.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 11/11/2011 070.54 HEPATITIS C CHRONIC 11/11/2011 702.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 11/11/2011 070.54 HEPATITIS C CHRONIC 11/11/2011 702.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 11/11/2011 070.54 HEPATITIS C CHRONIC 11/11/2011 702.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 11/11/2011 070.54 HEPATITIS C CHRONIC 11/11/2011 702.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 11/11/2011 LINDA DO, LUANNE K 070.54 HEPATITIS C CHRONIC 11/11/2011 LINDA DO, LUANNE K 702.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 11/11/2011 LINDA DO, LUANNE K 070.54 HEPATITIS C CHRONIC 11/11/2011 LINDA DO, LUANNE K 702.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 11/11/2011 LINDA DO, LUANNE K 070.54 HEPATITIS C CHRONIC 11/11/2011 LINDA DO, LUANNE K 702.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 11/11/2011 ANTHONY CRYSTAL, HERNAN N 070.54 HEPATITIS C CHRONIC 11/11/2011 ANTHONY CRYSTAL, HERNAN N 702.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 11/11/2011 LINDA DO, LUANNE K 070.54 HEPATITIS C CHRONIC 11/11/2011 LINDA DO, LUANNE K 702.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 11/11/2011 LINDA DO, LUANNE K 070.54 HEPATITIS C CHRONIC 11/11/2011 LINDA DO, LUANNE K 702.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 11/11/2011 MARCELO WAYNE APRNIA R 070.54 HEPATITIS C CHRONIC 11/11/2011 PERRI WAYNE APRNRICIA R 702.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 11/11/2011 LINDA DO, LUANNE K 070.54 HEPATITIS C CHRONIC 11/11/2011 LINDA DO, LUANNE K 702.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 11/11/2011 LINDA DO, LUANNE K 070.54 HEPATITIS C CHRONIC 11/11/2011 LINDA DO, LUANNE K 702.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 11/11/2011 LINDA DO, LUANNE K 070.54 HEPATITIS C CHRONIC 11/11/2011 LINDA DO, LUANNE K 702.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 11/11/2011 LINDA DO, LUANNE K 070.54 HEPATITIS C CHRONIC 11/11/2011 LINDA DO, LUANNE K 702.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 11/11/2011 LINDA DO, LUANNE K 070.54 HEPATITIS C CHRONIC 11/11/2011 LINDA DO, LUANNE K 702.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 11/11/2011 LINDA DO, LUANNE K 070.54 HEPATITIS C CHRONIC 11/11/2011 LUANNE LINDA DO K 702.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 11/11/2011 COLLEEN WAYNE APRN R 070.54 HEPATITIS C CHRONIC 11/11/2011 MACRELO WAYNE APRNIA R 702.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 11/11/2011 ONEYDA RUIZ APRN A 070.54 HEPATITIS C CHRONIC 11/11/2011 BAM RUIZ APRNIDI A 702.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 11/11/2011 CHRISTA GLORIA [...] APRN T 070.54 HEPATITIS C CHRONIC 11/11/2011 FAIZAN IRVIN CHRISTA T 702.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 01/17/2012 478.19 OTHER DISEASES OF NASAL CAVITY AND SINUSES 01/17/2012 784.91 POSTNASAL DRIP 01/17/2012 478.19 OTHER DISEASES OF NASAL CAVITY AND SINUSES 01/17/2012 784.91 POSTNASAL DRIP 01/17/2012 LUANNE LINDA DO 478.19 Other Diseases Of Nasal Cavity And Sinuses 01/17/2012 LUANNE LINDA DO 784.91 Postnasal Drip 01/17/2012 LUANNE LINDA DO 478.19 Other Diseases Of Nasal Cavity And Sinuses 01/17/2012 LUANNE LINDA DO 784.91 Postnasal Drip 01/17/2012 478.19 [...] And Sinuses 01/17/2012 784.91 Postnasal Drip 01/17/2012 LUANNE LINDA DO 478.19 Other Diseases Of Nasal Cavity And Sinuses 01/17/2012 LINDA DO LUANNE K 784.91 Postnasal Drip 01/17/2012 LINDA MATTHEW PORTILLOA K 478.19 OTHER DISEASES OF NASAL CAVITY AND SINUSES 01/17/2012 LINDA DO LUANNE K 784.91 POSTNASAL DRIP 01/17/2012 LINDA MATTHEW PORTILLOA K 478.19 Other Diseases Of Nasal Cavity And Sinuses 01/17/2012 MADDI PORTILLO LUANNE K 784.91 Postnasal Drip 01/17/2012 HERNAN CRUZ MD N 478.19 Other Diseases Of Nasal Cavity And Sinuses 01/17/2012 HERNAN CRUZ MD N 784.91 Postnasal Drip 01/17/2012 MATTHEW LINDA DOA K 478.19 Other Diseases Of Nasal Cavity And Sinuses 01/17/2012 MADDI PORTILLO LUANNE K 784.91 Postnasal Drip 01/17/2012 MATTHEW LINDA DOA K 478.19 Other Diseases Of Nasal Cavity And Sinuses 01/17/2012 MADDI PORTILLO LUANNE K 784.91 Postnasal Drip 01/17/2012 COLLEEN WAYNE APRN R 478.19 Other Diseases Of Nasal Cavity And Sinuses 01/17/2012 COLLEEN WAYNE APRN R 784.91 Postnasal Drip 01/17/2012 MATTHEW LINDA DOA K 478.19 Other Diseases Of Nasal Cavity And Sinuses 01/17/2012 LINDA DO LUANNE K 784.91 Postnasal Drip 01/17/2012 LINDA MATTHEW PORTILLOA K 478.19 Other Diseases Of Nasal Cavity And Sinuses 01/17/2012 LINDA DO LUANNE K 784.91 Postnasal Drip 01/17/2012 LINDA LUANNE PORTILLO K 478.19 Other Diseases Of Nasal Cavity And Sinuses 01/17/2012 LINDA DO, LUANNE K 784.91 Postnasal Drip 01/17/2012 LINDA MATTHEW PORTILLOA K 478.19 Other Diseases Of Nasal Cavity And Sinuses 01/17/2012 LINDA DOMATTHEWA K 784.91 Postnasal Drip 01/17/2012 LINDA DOMATTHEWA K 478.19 Other Diseases Of Nasal Cavity And Sinuses 01/17/2012 LINDA DO LUANNE K 784.91 Postnasal Drip 01/17/2012 LINDA MATTHEW PORTILLOA K 478.19 Other Diseases Of Nasal Cavity And Sinuses 01/17/2012 LINDA DO LUANNE K 784.91 Postnasal Drip 01/17/2012 COLLEEN WAYNE [...] 02/24/2012 Ot 786.59 04/01/2012 786.2 COUGH 04/01/2012 LUANNE LINDA DO K 786.2 Cough 04/01/2012 LUANNE LINDA DO K 786.2 Cough 04/01/2012 786.2 Cough 04/01/2012 786.2 Cough 04/01/2012 786.2 Cough 04/01/2012 786.2 Cough 04/01/2012 786.2 Cough 04/01/2012 786.2 Cough 04/01/2012 LINDA DO, LUANNE K 786.2 Cough 04/01/2012 LINDA DO, LUANNE K 786.2 Cough 04/01/2012 ANTHONY CRYSTAL, HERNAN Mead 786.2 Cough 04/01/2012 LINDA DO, LUANNE K 786.2 Cough 04/01/2012 LINDA DO, LUANNE K 786.2 Cough 04/01/2012 ROSANA INSULATION BATTING MACHINE OPERATOR, COLLEEN R 786.2 Cough 04/01/2012 LINDA DO, LUANNE K 786.2 Cough 04/01/2012 LINDA DO, LUANNE K 786.2 Cough 04/01/2012 LINDA DO, LUANNE K 786.2 Cough 04/01/2012 LINDA DO, LUANNE K 786.2 Cough 04/01/2012 LINDA DO, LUANNE K 786.2 Cough 04/01/2012 LINDA DO, LUANNE K 786.2 Cough 04/01/2012 ROSANA INSULATION BATTING MACHINE OPERATOR, COLLEEN R 786.2 Cough 04/01/2012 SARA INSULATION BATTING MACHINE OPERATOR, ONEYDA A 786.2 Cough 04/01/2012 CHRISTA GLORIA APRN T 786.2 Cough 04/01/2012 FAIZAN INSULATION BATTING MACHINE OPERATOR, CHRISTA T 786.2 Cough 04/01/2012 ROSANA INSULATION BATTING MACHINE OPERATOR, COLLEEN R 786.2 Cough 04/01/2012 FAIZAN INSULATION BATTING MACHINE OPERATOR, CHRISTA T 786.2 Cough 04/13/2012 LINDA DO, LUANNE K V65.42 COUNSELING - SMOKING CESSATION 04/13/2012 LINDA DO, LUANNE K V65.42 COUNSELING - SMOKING CESSATION 04/13/2012 V65.42 COUNSELING - SMOKING CESSATION 04/13/2012 V65.42 COUNSELING - SMOKING CESSATION 04/13/2012 V65.42 COUNSELING - SMOKING CESSATION 04/13/2012 V65.42 COUNSELING - SMOKING CESSATION 04/13/2012 V65.42 COUNSELING - SMOKING CESSATION 04/13/2012 V65.42 COUNSELING - SMOKING CESSATION 04/13/2012 LINDA DO, LUANNE K V65.42 COUNSELING - SMOKING CESSATION 04/13/2012 LINDA DO, LUANNE K V65.42 COUNSELING - SMOKING CESSATION 04/13/2012 HERNAN CRUZ MD V65.42 COUNSELING - SMOKING CESSATION 04/13/2012 LINDA DO, LUANNE K V65.42 COUNSELING - SMOKING CESSATION 04/13/2012 LINDA DO, LUANNE K V65.42 COUNSELING - SMOKING CESSATION 04/13/2012 COLLEEN WAYNE APRN R V65.42 COUNSELING - SMOKING CESSATION 04/13/2012 LINDA DO, LUANNE K V65.42 COUNSELING - SMOKING CESSATION 04/13/2012 LINDA DO, LUANNE K V65.42 COUNSELING - SMOKING CESSATION 04/13/2012 LINDA DO, LUANNE K V65.42 COUNSELING - SMOKING CESSATION 04/13/2012 LINDA DO, LUANNE K V65.42 COUNSELING - SMOKING CESSATION 04/13/2012 LINDA DO, LUANNE K V65.42 COUNSELING - SMOKING CESSATION 04/13/2012 LINDA DO, LUANNE K V65.42 COUNSELING - SMOKING CESSATION 04/13/2012 COLLE[address]NE APRN R V65.42 COUNSELING - SMOKING CESSATION 04/13/2012 ONEYDA RUIZ APRN V65.42 COUNSELING - SMOKING CESSATION 04/13/2012 CHRISTA GLORIA APRN V65.42 COUNSELING - SMOKING CESSATION 04/13/2012 CHRISTA GLORIA APRN V65.42 COUNSELING - SMOKING CESSATION 04/13/[address] APRN V65.42 COUNSELING - SMOKING CESSATION 04/13/2012 CHRISTA GLORIA APRN V65.42 COUNSELING - SMOKING CESSATION 05/13/2012 LINDA DO, LUANNE K 593.9 RENAL INSUFFICIENCY 05/13/2012 593.9 RENAL INSUFFICIENCY 05/13/2012 593.9 RENAL INSUFFICIENCY 05/13/2012 593.9 RENAL INSUFFICIENCY 05/13/2012 593.9 RENAL INSUFFICIENCY 05/13/2012 593.9 RENAL INSUFFICIENCY 05/13/2012 593.9 RENAL INSUFFICIENCY 05/13/2012 LINDA DO, LUANNE K 593.9 RENAL INSUFFICIENCY 05/13/2012 LINDA DO, LUANNE K 593.9 RENAL INSUFFICIENCY 05/13/2012 ANTHONY CRYSTAL, HERNAN Mead 593.9 RENAL INSUFFICIENCY 05/13/2012 LINDA DO, LUANNE K 593.9 RENAL INSUFFICIENCY 05/13/2012 LINDA DO, LUANNE K 593.9 RENAL INSUFFICIENCY 05/13/[address]NE APRNIA R 593.9 RENAL INSUFFICIENCY 05/13/2012 LINDA DO, LUANNE K 593.9 RENAL INSUFFICIENCY 05/13/2012 LINDA DO, LUANNE K 593.9 RENAL INSUFFICIENCY 05/13/2012 LINDA DO, LUANNE K 593.9 RENAL INSUFFICIENCY 05/13/2012 LINDA DO, LUANNE K 593.9 RENAL INSUFFICIENCY 05/13/2012 LINDA DO, LUANNE K 593.9 RENAL INSUFFICIENCY 05/13/2012 LINDA DO, LUANNE K 593.9 RENAL INSUFFICIENCY 05/13/[address]NE APRN R 593.9 RENAL INSUFFICIENCY 05/13/2012 ONEYDA RUIZ [...] SCIATICA 07/07/2012 724.3 SCIATICA 07/07/2012 LINDA DO, LUANNE K 724.3 SCIATICA 07/07/2012 LINDA DO, LUANNE K 724.3 SCIATICA 07/07/2012 ANTHONY CRYSTAL, HERNAN N 724.3 SCIATICA 07/07/2012 LINDA DO, LUANNE K 724.3 SCIATICA 07/07/2012 LINDA DO, LUANNE K 724.3 SCIATICA 07/07/[address] APRNIA R 724.3 SCIATICA 07/07/2012 LINDA DO, LUANNE K 724.3 SCIATICA 07/07/2012 LINDA DO, LUANNE K 724.3 SCIATICA 07/07/2012 LINDA DO, LUANNE K 724.3 SCIATICA 07/07/2012 LINDA DO, LUANNE K 724.3 SCIATICA 07/07/2012 LINDA DO, LUANNE K 724.3 SCIATICA 07/07/2012 LINDA DO, LUANNE K 724.3 SCIATICA 07/07/[address]NE APRN R 724.3 SCIATICA 07/07/2012 ONEYDA RUIZ APRN A 724.3 SCIATICA 07/07/2012 CHRISTA GLORIA APRN T 724.3 SCIATICA 07/07/2012 CHRISTA GLORIA APRN 724.3 SCIATICA 07/07/[address] APRN 724.3 SCIATICA 07/07/2012 CHRISTA GLORIA APRN 724.3 SCIATICA 09/21/2012 599.70 HEMATURIA 09/21/2012 599.70 HEMATURIA 09/21/2012 599.70 HEMATURIA 09/21/2012 LINDA DO, LUANNE K 599.70 HEMATURIA 09/21/2012 LINDA DO, LUANNE K 599.70 HEMATURIA 09/21/2012 ANTHONY CRYSTAL, HERNAN Mead 599.70 HEMATURIA 09/21/2012 LINDA DO, LUANNE K 599.70 HEMATURIA 09/21/2012 LINDA DO, LUANNE K 599.70 HEMATURIA 09/21/[address] APRN R 599.70 HEMATURIA 09/21/2012 LINDA DO, LUANNE K 599.70 HEMATURIA 09/21/2012 LINDA DO, LUANNE K 599.70 HEMATURIA 09/21/2012 LINDA DO, LUANNE K 599.70 HEMATURIA 09/21/2012 LINDA DO, LUANNE K 599.70 HEMATURIA 09/21/2012 LINDA DO, LUANNE K 599.70 HEMATURIA 09/21/2012 LINDA DO, LUANNE K 599.70 HEMATURIA 09/21/[address] APRN R 599.70 HEMATURIA 09/21/2012 SARAONEYDA HERRERA APRN 599.70 HEMATURIA 09/21/2012 CHRISTA GLORIA APRN 599.70 HEMATURIA 09/21/2012 CHRISTA GLORIA APRN 599.70 HEMATURIA 09/21/[address] APRN R 599.70 HEMATURIA 09/21/2012 CHRISTA GLORIA APRN 599.70 HEMATURIA 10/19/2012 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 10/19/2012 V65.49 OTHER SPECIFIED COUNSELING 10/19/2012 V73.81 HPV SCREENING 10/19/2012 V76.51 COLON CANCER SCREENING 10/19/2012 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 10/19/2012 V65.49 OTHER SPECIFIED COUNSELING 10/19/2012 V73.81 HPV SCREENING 10/19/2012 V76.51 COLON CANCER SCREENING 10/19/2012 LINDA DO, LUANNE K 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 10/19/2012 LINDA DO, LUANNE K V65.49 OTHER SPECIFIED COUNSELING 10/19/2012 LINDA DO, LUANNE K V73.81 HPV SCREENING 10/19/2012 LINDA DO, LUANNE K V76.51 COLON CANCER SCREENING 10/19/2012 LINDA DO, LUANNE K 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 10/19/2012 LINDA DO, LUANNE K V65.49 OTHER SPECIFIED COUNSELING 10/19/2012 LINDA DO, LUANNE K V73.81 HPV SCREENING 10/19/2012 LINDA DO, LUANNE K V76.51 COLON CANCER SCREENING 10/19/2012 HERNAN CRUZ MD 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 10/19/2012 HERNAN CRUZ MD V65.49 OTHER SPECIFIED COUNSELING 10/19/2012 HERNAN CRUZ MD V73.81 HPV SCREENING 10/19/2012 HERNAN CRUZ MD V76.51 COLON CANCER SCREENING 10/19/2012 LINDA DO LUANNE K 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 10/19/2012 LINDA DO, LUANNE K V65.49 OTHER SPECIFIED COUNSELING 10/19/2012 LINDA DO LUANNE K V73.81 HPV SCREENING 10/19/2012 LINDA DO, LUANNE K V76.51 COLON CANCER SCREENING 10/19/2012 LINDA DO, LUANNE K 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 10/19/2012 LINDA DO, LUANNE K V65.49 OTHER SPECIFIED COUNSELING 10/19/2012 LINDA DO, LUANNE K V73.81 HPV SCREENING 10/19/2012 LINDA DO, LUANNE K V76.51 COLON CANCER SCREENING 10/19/2012 PERRI WAYNE APRNRICIA R 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81 HPV SCREENING 10/19/2012 LINDA DO, LUANNE K V76.51 COLON CANCER SCREENING 10/19/2012 LINDA DO, LUANNE K 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 10/19/2012 LINDA DO, LUANNE K V65.49 OTHER SPECIFIED COUNSELING 10/19/2012 LINDA DO, LUANNE K V73.81 HPV SCREENING 10/19/2012 LINDA DO, LUANNE K V76.51 COLON CANCER SCREENING 10/19/2012 LINDA DO, LUANNE K 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 10/19/2012 LINDA DO, LUANNE K V65.49 OTHER SPECIFIED COUNSELING 10/19/2012 LINDA DO, LUANNE K V73.81 HPV SCREENING 10/19/2012 LINDA DO, LUANNE K V76.51 COLON CANCER SCREENING 10/19/2012 LINDA DO, LUANNE K 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 10/19/2012 LINDA DO, LUANNE K V65.49 OTHER SPECIFIED COUNSELING 10/19/2012 LINDA DO, LUANNE K V73.81 HPV SCREENING 10/19/2012 LINDA DO, LUANNE K V76.51 COLON CANCER SCREENING 10/19/2012 LINDA DO, LUANNE K 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 10/19/2012 LINDA DO, LUANNE K V65.49 OTHER SPECIFIED COUNSELING 10/19/2012 LINDA DO, LUANNE K V73.81 HPV SCREENING 10/19/2012 LINDA DO, LUANNE K V76.51 COLON CANCER SCREENING 10/19/2012 MARCELO WAYNE APRNIA R 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 10/19/2012 MARCELO WAYNE APRNIA R V65.49 OTHER SPECIFIED COUNSELING 10/19/2012 PERRI WAYNE APRNRICIA R V73.81 HPV SCREENING 10/19/2012 ROSANA IRVIN COLLEEN R V76.51 COLON CANCER SCREENING 10/19/2012 ONEYDA RUIZ APRN A 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 10/19/2012 ONEYDA RUIZ APRN A V65.49 OTHER SPECIFIED COUNSELING 10/19/2012 ONEYDA RUIZ APRN A V73.81 HPV SCREENING 10/19/2012 ONEYDA RUIZ APRN A V76.51 COLON CANCER SCREENING 10/19/2012 [...] APRNRICIA R V65.49 OTHER SPECIFIED COUNSELING 10/19/2012 MARCELO WAYNE APRNIA R V73.81 HPV SCREENING 10/19/2012 MARCELO WAYNE APRNIA R V76.51 COLON CANCER SCREENING 10/19/2012 CHRISTA GLORIA APRN 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 10/19/2012 CHRISTA GLORIA APRN V65.49 OTHER SPECIFIED COUNSELING 10/19/2012 CHRISTA GLORIA APRN V73.81 HPV SCREENING 10/19/2012 CHRISTA LGORIA APRN V76.51 COLON CANCER SCREENING 11/07/2012 LINDA DO LUANNE K Ot 327.23 OBSTRUCTIVE SLEEP APNEA (ADULT) (PEDIATR 11/21/2012 LINDA DO, LUANNE K 780.57 SLEEP APNEA 11/21/2012 LINDA DO LUANNE K 780.57 SLEEP APNEA 11/21/2012 ANTHONY CRYSTAL, HERNAN Mead 780.57 SLEEP APNEA 11/21/2012 LINDA DO, LUANNE K 780.57 SLEEP APNEA 11/21/2012 LINDA DO, LUANNE K 780.57 SLEEP APNEA 11/21/2012 ROSANA IRVIN COLLEEN R 780.57 SLEEP APNEA 11/21/2012 LINDA DO LUANNE K 780.57 SLEEP APNEA 11/21/2012 LINDA DO, LUANNE K 780.57 SLEEP APNEA 11/21/2012 LINDA , LUANNE K 780.57 SLEEP APNEA 11/21/2012 LINDA DO LUANNE K 780.57 SLEEP APNEA 11/21/2012 LINDA DO LUANNE K 780.57 SLEEP APNEA 11/21/2012 LINDA DO, LUANNE K 780.57 SLEEP APNEA 11/21/[address]NE APRNIA R 780.57 SLEEP APNEA 11/21/2012 ONEYDA RUIZ APRN A 780.57 SLEEP APNEA 11/21/2012 CHRISTA GLORIA APRN 780.57 SLEEP APNEA 11/21/2012 CHRISTA GLORIA APRN 780.57 SLEEP APNEA 11/21/[address] COLLE[address]NE APRN R 780.57 SLEEP APNEA 11/21/2012 HCRISTA GLORIA APRN 780.57 SLEEP APNEA 04/19/2013 LINDA DO, LUANNE K 327.23 OBSTRUCTIVE SLEEP APNEA (ADULT) (PEDIATRIC) 04/19/2013 LINDA DO, LUANNE K 786.09 RESPIRATORY ABNORMALITY OTHER 04/19/2013 LINDA DO, LUANNE K 327.23 OBSTRUCTIVE SLEEP APNEA (ADULT) (PEDIATRIC) 04/19/2013 LINDA DO, LUANNE K 786.09 RESPIRATORY ABNORMALITY OTHER 04/19/2013 LINDA DO, LUANNE K 327.23 OBSTRUCTIVE SLEEP APNEA (ADULT) (PEDIATRIC) 04/19/2013 LINDA DO LUANNE K 786.09 RESPIRATORY ABNORMALITY OTHER 04/19/2013 LINDA DO, LUANNE K 327.23 OBSTRUCTIVE SLEEP APNEA (ADULT) (PEDIATRIC) 04/19/2013 LINDA DO, LUANNE K 786.09 RESPIRATORY ABNORMALITY OTHER 04/19/2013 LINDA DO, LUANNE K 327.23 OBSTRUCTIVE SLEEP APNEA (ADULT) (PEDIATRIC) 04/19/2013 LINDA DO, LUANNE K 786.09 RESPIRATORY ABNORMALITY OTHER 04/19/2013 COLLEEN [...] 786.09 RESPIRATORY ABNORMALITY OTHER 05/05/2013 LINDA DO, LUANNE K 466.0 BRONCHITIS, ACUTE 05/05/2013 LINDA DO, LUANNE K 786.05 SHORTNESS OF BREATH 05/05/2013 LINDA DO, LUANNE K 466.0 BRONCHITIS, ACUTE 05/05/2013 LINDA DO, LUANNE K 786.05 SHORTNESS OF BREATH 05/05/2013 LINDA DO, LUANNE K 466.0 BRONCHITIS, ACUTE 05/05/2013 LINDA DO, LUANNE K 786.05 SHORTNESS OF BREATH 05/05/2013 LINDA DO, LUANNE K 466.0 BRONCHITIS, ACUTE 05/05/2013 LINDA DO, LUANNE K 786.05 SHORTNESS OF BREATH 05/05/2013 COLLEEN WAYNE APRN R 466.0 BRONCHITIS, ACUTE 05/05/2013 COLLEEN WAYNE APRN R 786.05 SHORTNESS OF BREATH 05/05/2013 ONEYDA RUIZ APRN A 466.0 BRONCHITIS, ACUTE 05/05/2013 ONEYDA RUIZ APRN A 786.05 SHORTNESS OF BREATH 05/05/2013 CHRISTA GLORIA APRN 466.0 BRONCHITIS, ACUTE 05/05/2013 CHRISTA GLORIA APRN 786.05 SHORTNESS OF BREATH 05/05/2013 CHRISTA GLORIA APRN 466.0 BRONCHITIS, ACUTE 05/05/2013 CRHISTA GLORIA APRN 786.05 SHORTNESS OF BREATH 05/05/2013 [...] SYMPTOM ASSOCIATED WITH FEMALE GENITAL ORGANS 09/13/2013 CHRISTA GLORIA APRN 625.9 UNSPECIFIED SYMPTOM ASSOCIATED WITH FEMALE GENITAL ORGANS 09/13/2013 CHRISTA GLORIA APRN T 625.9 UNSPECIFIED SYMPTOM ASSOCIATED WITH FEMALE GENITAL ORGANS 09/13/2013 COLLEEN WAYNE APRN R 625.9 UNSPECIFIED SYMPTOM ASSOCIATED WITH FEMALE GENITAL ORGANS 09/13/2013 CHRISTA GLORIA APRN T 625.9 UNSPECIFIED SYMPTOM ASSOCIATED WITH FEMALE GENITAL ORGANS 09/28/2013 SARA APRN, ONEYDA A 599.0 URINARY TRACT INFECTION 09/28/2013 CHRISTA GLORIA APRN T 599.0 URINARY TRACT INFECTION 09/28/2013 CHRISTA GLORIA APRN T 599.0 URINARY TRACT INFECTION 09/28/[address]LE[address]NE APRN R 599.0 URINARY TRACT INFECTION 09/28/2013 CHRISTA GLORIA APRN 599.0 URINARY TRACT INFECTION 05/04/2014 COLLE[address] WAYNE [...] NODULE 05/24/2016 SERGIO FARAH MD Ot Z79.82 BAIT PAINTER (CURRENT) USE OF ASPIRIN 05/24/2016 SERGIO FARAH MD Ot Z79.899 OTHER BAIT PAINTER (CURRENT) DRUG THERAPY 05/24/2016 SERGIO FARAH MD [...] NODULE 05/27/2016 SERGIO FARAH MD Ot Z79.82 [facility] (CURRENT) USE OF ASPIRIN 05/27/2016 SERGIO FARAH MD Ot Z79.899 OTHER BAIT PAINTER (CURRENT) DRUG THERAPY 05/27/2016 SERGIO FARAH MD [...] NODULE 05/27/2016 SERGIO FARAH MD Ot Z79.82 [facility] (CURRENT) USE OF ASPIRIN 05/27/2016 SERGIO FARAH MD Ot Z79.899 OTHER [facility] (CURRENT) DRUG THERAPY 05/27/2016 SERGIO FARAH MD Ot Z85.41 PERSONAL HISTORY OF MALIGNANT NEOPLASM O 05/27/2016 SERGIO FARAH MD Ot 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 05/27/2016 SERGIO FARAH MD Ot Z90.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 BOTH CERVIX AND UTER 05/31/2016 SERGIO FARAH MD Ot I74.10 EMBOLISM AND THROMBOSIS OF UNSPECIFIED P 05/31/2016 SERGIO FARAH MD Ot K44.9 DIAPHRAGMATIC HERNIA WITHOUT OBSTRUCTION 05/31/2016 SERGIO FARAH MD Ot N28.1 CYST OF KIDNEY, ACQUIRED 05/31/2016 SERGIO FARAH MD Ot R10.30 LOWER ABDOMINAL PAIN, UNSPECIFIED 05/31/2016 SERGIO FARAH MD Ot R10.31 RIGHT LOWER QUADRANT PAIN 05/31/2016 SERGIO FARAH MD Ot R91.1 SOLITARY PULMONARY NODULE 05/31/2016 SERGIO FARAH MD Ot Z79.82 BAIT PAINTER (CURRENT) USE OF ASPIRIN 05/31/2016 SERGIO FARAH MD Ot Z79.899 OTHER [facility] (CURRENT) DRUG THERAPY 05/31/2016 SERGIO FARAH MD Ot Z85.41 PERSONAL HISTORY OF MALIGNANT NEOPLASM O 05/31/2016 SERGIO FARAH MD Ot 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 05/31/2016 SERGIO FARAH MD Ot Z90.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 BOTH CERVIX AND UTER 08/07/2017 YUDI MORRISON APRN Ot F17.210 NICOTINE DEPENDENCE, CIGARETTES, UNCOMPL 08/07/2017 YUDI MORRISON APRN Ot R07.89 OTHER CHEST PAIN 08/07/2017 YUDI MORRISON APRN Ot Z79.82 [facility] (CURRENT) USE OF ASPIRIN 08/07/2017 YUDI MORRISON APRN Ot 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 08/07/2017 YUDI MORRISON APRN Ot Z87.19 PERSONAL HISTORY OF OTHER DISEASES OF TH 08/07/2017 YUDI MORRISON APRN Ot 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 08/07/2017 YUDI MORRISON APRN Ot Z90.89 ACQUIRED ABSENCE OF OTHER ORGANS 08/11/2017 YUDI MORRISON INSULATION BATTING MACHINE OPERATOR Ot F17.210 NICOTINE DEPENDENCE, CIGARETTES, UNCOMPL 08/11/2017 YUDI MORRISON INSULATION BATTING MACHINE OPERATOR Ot R07.89 OTHER CHEST PAIN 08/11/2017 YUDI MORRISON INSULATION BATTING MACHINE OPERATOR Ot Z79.82 [facility] (CURRENT) USE OF ASPIRIN 08/11/2017 YUDI MORRISON INSULATION BATTING MACHINE OPERATOR Ot 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 08/11/2017 YUDI MORRISON INSULATION BATTING MACHINE OPERATOR Ot Z87.19 PERSONAL HISTORY OF OTHER DISEASES OF TH 08/11/2017 YUDI MORRISON INSULATION BATTING MACHINE OPERATOR Ot 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 08/11/2017 YUDI MORRISON INSULATION BATTING MACHINE OPERATOR Ot Z90.89 ACQUIRED ABSENCE OF OTHER ORGANS 09/08/2017 DEJA ZHONG INSULATION BATTING MACHINE OPERATOR Ot Z78.0 ASYMPTOMATIC MENOPAUSAL STATE 09/08/2017 Ot 793.89 OTH (ABN) FINDINGS ON RADIOLOGICAL EXAMI 09/08/2017 Ot V76.12 OTH SCREEN MAMMO- MALIGN NEOPLASM OF JOSIANE 09/08/2017 Ot 610.0 SOLITARY CYST OF BREAST 09/08/2017 CANDI CRYSTAL, KASIA Canas Ot V72.84 EXAM PRE-OPERATIVE NOS 09/08/2017 CANDI CRYSTAL, KASIA Canas Ot V72.84 EXAM PRE-OPERATIVE NOS 09/08/2017 DEJA ZHONG INSULATION BATTING MACHINE OPERATOR Ot Z78.0 ASYMPTOMATIC MENOPAUSAL STATE 09/12/2017 DEJA ZHONG INSULATION BATTING MACHINE OPERATOR Ot 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, 09/12/2017 DEJA ZHONG INSULATION BATTING MACHINE OPERATOR Ot Z13.820 ENCOUNTER FOR SCREENING FOR OSTEOPOROSIS 09/12/2017 DEJA ZHONG INSULATION BATTING MACHINE OPERATOR Ot Z78.0 ASYMPTOMATIC MENOPAUSAL STATE 10/02/2017 DEJA ZHONG INSULATION BATTING MACHINE OPERATOR Ot 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, 10/02/2017 DEJA ZHONG INSULATION BATTING MACHINE OPERATOR Ot Z13.820 ENCOUNTER FOR SCREENING FOR OSTEOPOROSIS 10/02/2017 DEJA ZHONG INSULATION BATTING MACHINE OPERATOR Ot Z78.0 ASYMPTOMATIC MENOPAUSAL STATE 12/19/2017 GUSTAVO HUTSON MD Ot F17.210 NICOTINE DEPENDENCE, CIGARETTES, UNCOMPL 12/19/2017 GUSTAVO HUTSON MD Ot I47.2 VENTRICULAR TACHYCARDIA 12/19/2017 GUSTAVO HUTSON MD Ot N28.0 ISCHEMIA AND INFARCTION OF KIDNEY 12/19/2017 GUSTAVO HUTSON MD Ot R10.31 RIGHT LOWER QUADRANT PAIN 12/19/2017 GUSTAVO HUTSON MD Ot Z79.82 BAIT PAINTER (CURRENT) USE OF ASPIRIN 12/19/2017 GUSTAVO HUTSON MD Ot 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 12/19/2017 GUSTAVO HUTSON MD Ot Z90.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 BOTH CERVIX AND UTER 12/19/2017 GUSTAVO HUTSON MD Ot Z90.79 ACQUIRED ABSENCE OF OTHER GENITAL ORGAN( 12/22/2017 GUSTAVO HUTSON MD Ot F17.210 NICOTINE DEPENDENCE, CIGARETTES, UNCOMPL 12/22/2017 GUSTAVO HUTSON MD Ot I47.2 VENTRICULAR TACHYCARDIA 12/22/2017 GUSTAVO HUTSON MD Ot N28.0 ISCHEMIA AND INFARCTION OF KIDNEY 12/22/2017 GUSTAVO HUTSON MD Ot R10.31 RIGHT LOWER QUADRANT PAIN 12/22/2017 GUSTAVO HUTSON MD Ot Z79.82 [facility] (CURRENT) USE OF ASPIRIN 12/22/2017 GUSTAVO HUTSON MD Ot 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 12/22/2017 GUSTAVO HUTSON MD Ot Z90.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 BOTH CERVIX AND UTER 12/22/2017 GUSTAVO HUTSON MD Ot Z90.79 ACQUIRED ABSENCE OF OTHER GENITAL ORGAN( 02/12/2018 REBECCA PORTILLO KEITH K Ot F17.210 NICOTINE DEPENDENCE, CIGARETTES, UNCOMPL 02/12/2018 NONA FERNANDEZ DOA K Ot F32.9 MAJOR DEPRESSIVE DISORDER, SINGLE EPISOD 02/12/2018 NONA FERNANDEZ DOA K Ot F41.9 ANXIETY DISORDER, UNSPECIFIED 02/12/2018 REBECCA PORTILLO KEITH K Ot I10 ESSENTIAL (PRIMARY) HYPERTENSION 02/12/2018 REBECCA PORTILLO KEITH K Ot I25.10 ATHSCL HEART DISEASE OF [place] CORONARY 02/12/2018 KEITH FERNANDEZ DO Ot M32.9 SYSTEMIC LUPUS ERYTHEMATOSUS, UNSPECIFIE 02/12/2018 NONA FERNANDEZ DOA K Ot N39.0 URINARY TRACT INFECTION, SITE NOT SPECIF 02/12/2018 KEITH FERNANDEZ DO Ot R31.9 HEMATURIA, UNSPECIFIED 02/12/2018 NONA FERNANDEZ DOA K Ot Z79.01 BAIT PAINTER (CURRENT) USE OF ANTICOAGULANT 02/12/2018 REBECCA NONAA Demond Ot Z79.82 [facility] (CURRENT) USE OF ASPIRIN 02/12/2018 REBECCA NONAA Demond Ot Z85.41 PERSONAL HISTORY OF MALIGNANT NEOPLASM O 02/12/2018 REBECCA DOKEITH Ot 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 02/12/2018 REBECCA PORTILLOKEITH Ot Z87.19 PERSONAL HISTORY OF OTHER DISEASES OF TH 02/12/2018 REBECCA PORTILLOKEITH Ot 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 02/12/2018 REBECCA KEITH Ot Z90.5 ACQUIRED ABSENCE OF KIDNEY 02/12/2018 REBECCA ONNAA Demond Ot Z90.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 BOTH CERVIX AND UTER 02/12/2018 REBECCA NONAA Demond Ot Z90.79 ACQUIRED ABSENCE OF OTHER GENITAL ORGAN( 02/12/2018 REBECCA NONAA K Ot Z90.89 ACQUIRED ABSENCE OF OTHER ORGANS 02/12/2018 REBECCA KEITH Ot Z98.890 OTHER SPECIFIED POSTPROCEDURAL STATES 02/16/2018 REBECCA NONAA K Ot F17.210 NICOTINE DEPENDENCE, CIGARETTES, UNCOMPL 02/16/2018 KEITH FERNANDEZ DO Ot F32.9 MAJOR DEPRESSIVE DISORDER, SINGLE EPISOD 02/16/2018 REBECCA NONA PORTILLOA Demond Ot F41.9 ANXIETY DISORDER, UNSPECIFIED 02/16/2018 REBECCA DO KEITH K Ot I10 ESSENTIAL (PRIMARY) HYPERTENSION 02/16/2018 REBECCA KEITH PORTILLO Ot I25.10 ATHSCL HEART DISEASE OF [place] CORONARY 02/16/2018 NONA FERNANDEZ DOA Demond Ot M32.9 SYSTEMIC LUPUS ERYTHEMATOSUS, UNSPECIFIE 02/16/2018 REBECCA NONA PORTILLOA Demond Ot N39.0 URINARY TRACT INFECTION, SITE NOT SPECIF 02/16/2018 KEITH FERNANDEZ DO Ot R31.9 HEMATURIA, UNSPECIFIED 02/16/2018 REBECCA DO KEITH K Ot Z79.01 BAIT PAINTER (CURRENT) USE OF ANTICOAGULANT 02/16/2018 REBECCA NONA PORTILLOA Demond Ot Z79.82 [facility] (CURRENT) USE OF ASPIRIN 02/16/2018 REBECCA NONA PORTILLOA Demond Ot Z85.41 PERSONAL HISTORY OF MALIGNANT NEOPLASM O 02/16/2018 REBECCA NONA PORTILLOA K Ot 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 02/16/2018 REBECCA KEITH PORTILLO K Ot Z87.19 PERSONAL HISTORY OF OTHER DISEASES OF TH 02/16/2018 REBECCA KEITH PORTILLO K Ot 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 02/16/2018 REBECCA NONA PORTILLOA K Ot Z90.5 ACQUIRED ABSENCE OF KIDNEY 02/16/2018 REBECCA NONA PORTILLOA K Ot Z90.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 BOTH CERVIX AND UTER 02/16/2018 REBECCA NONA PORTILLOA K Ot Z90.79 ACQUIRED ABSENCE OF OTHER GENITAL ORGAN( 02/16/2018 REBECCA NONA PORTILLOA K Ot Z90.89 ACQUIRED ABSENCE OF OTHER ORGANS 02/16/2018 REBECCA NONA PORTILLOA K Ot Z98.890 OTHER SPECIFIED POSTPROCEDURAL STATES 05/09/2018 MICKEY KENNEDY Ot F32.9 MAJOR DEPRESSIVE DISORDER, SINGLE EPISOD 05/09/2018 MICKEY KENNEDY Ot F41.9 ANXIETY DISORDER, UNSPECIFIED 05/09/2018 MICKEY KENNEDY Ot I10 ESSENTIAL (PRIMARY) HYPERTENSION 05/09/2018 MICKEY KENNEDY Ot I25.10 ATHSCL HEART DISEASE OF [place] CORONARY 05/09/2018 MICKEY KENNEDY Ot M10.9 GOUT, UNSPECIFIED 05/09/2018 MICKEY KENNEDY Ot M25.572 PAIN IN LEFT ANKLE AND JOINTS OF LEFT FO 05/09/2018 MICKEY KENNEDY Ot M32.9 SYSTEMIC LUPUS ERYTHEMATOSUS, UNSPECIFIE 05/09/2018 MICKEY KENNEDY Ot R11.2 NAUSEA WITH VOMITING, UNSPECIFIED 05/09/2018 MICKEY KENNEDY Ot R19.7 DIARRHEA, UNSPECIFIED 05/09/2018 MICKEY KENNEDY Ot Z77.22 CNTCT W AND EXPSR TO ENVIRON TOBACCO SMO 05/09/2018 MICKEY KENNEDY Ot Z79.82 BAIT PAINTER (CURRENT) USE OF ASPIRIN 05/09/2018 MICKEY KENNEDY Ot Z85.41 PERSONAL HISTORY OF MALIGNANT NEOPLASM O 05/09/2018 MICKEY KENNEDY Ot Z87.19 PERSONAL HISTORY OF OTHER DISEASES OF TH 05/09/2018 MICKEY KENNEDY Ot 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 05/09/2018 MICKEY KENNEDY Ot Z90.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 BOTH CERVIX AND UTER 05/09/2018 MICKEY KENNEDY Ot Z90.89 ACQUIRED ABSENCE OF OTHER ORGANS 05/09/2018 MICKEY KENNEDY Ot Z98.890 OTHER SPECIFIED POSTPROCEDURAL STATES 05/10/2018 MILTON CRYSTAL, HENRY T Ot M79.662 PAIN IN LEFT LOWER LEG 05/10/2018 MILTON CRYSTAL, HENRY T Ot M79.662 PAIN IN LEFT LOWER LEG 05/10/2018 MILTON CRYSTAL, HENRY T Ot M79.662 PAIN IN LEFT LOWER LEG 05/10/2018 MILTON CRYSTAL, HENRY T Ot M79.605 PAIN IN LEFT LEG 05/12/2018 MICKEY KENNEDY Ot F32.9 MAJOR DEPRESSIVE DISORDER, SINGLE EPISOD 05/12/2018 MICKEY KENNEDY Ot F41.9 ANXIETY DISORDER, UNSPECIFIED 05/12/2018 MICKEY KENNEDY Ot I10 ESSENTIAL (PRIMARY) HYPERTENSION 05/12/2018 MICKEY KENNEDY Ot I25.10 ATHSCL HEART DISEASE OF [place] CORONARY 05/12/2018 MICKEY KENNEDY Ot M10.9 GOUT, UNSPECIFIED 05/12/2018 MICKEY KENNEDY Ot M25.572 PAIN IN LEFT ANKLE AND JOINTS OF LEFT FO 05/12/2018 MICKEY KENNEDY Ot M32.9 SYSTEMIC LUPUS ERYTHEMATOSUS, UNSPECIFIE 05/12/2018 MICKEY KENNEDY Ot R11.2 NAUSEA WITH VOMITING, UNSPECIFIED 05/12/2018 MICKEY KENNEDY Ot R19.7 DIARRHEA, UNSPECIFIED 05/12/2018 MICKEY KENNEDY Ot Z77.22 CNTCT W AND EXPSR TO ENVIRON TOBACCO SMO 05/12/2018 MICKEY KENNEDY Ot Z79.82 [facility] (CURRENT) USE OF ASPIRIN 05/12/2018 MICKEY KENNEDY Ot Z85.41 PERSONAL HISTORY OF MALIGNANT NEOPLASM O 05/12/2018 MICKEY KENNEDY Ot Z87.19 PERSONAL HISTORY OF OTHER DISEASES OF TH 05/12/2018 MICKEY KENNEDY Ot 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 05/12/2018 MICKEY KENNEDY Ot Z90.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 BOTH CERVIX AND UTER 05/12/2018 MICKEY KENNEDY Ot Z90.89 ACQUIRED ABSENCE OF OTHER ORGANS 05/12/2018 MICKEY KENNEDY Ot Z98.890 OTHER SPECIFIED POSTPROCEDURAL STATES 05/12/2018 CANDI CRYSTAL, KASIA Canas Ot V72.84 EXAM PRE-OPERATIVE NOS 05/12/2018 CANDI CRYSTAL, KASIA Canas Ot V72.84 EXAM PRE-OPERATIVE NOS 05/12/2018 DEJA ZHONG INSULATION BATTING MACHINE OPERATOR Ot 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, 05/12/2018 DEJA ZHONG INSULATION BATTING MACHINE OPERATOR Ot Z13.820 ENCOUNTER FOR SCREENING FOR OSTEOPOROSIS 05/12/2018 DEJA ZHONG INSULATION BATTING MACHINE OPERATOR Ot Z78.0 ASYMPTOMATIC MENOPAUSAL STATE 05/12/2018 MILTON CRYSTAL, HENRY Rodgers Ot M79.605 PAIN IN LEFT LEG 05/17/2018 HENRY ORSE MD Ot M79.605 PAIN IN LEFT LEG 07/20/2018 HERNAN CRUZ MD Ot E78.00 PURE HYPERCHOLESTEROLEMIA, UNSPECIFIED 07/20/2018 HERNAN CRUZ MD Ot E78.5 HYPERLIPIDEMIA, UNSPECIFIED 07/20/2018 HERNAN CRUZ MD Ot E87.6 HYPOKALEMIA 07/20/2018 HERNAN CRUZ MD Ot F17.210 NICOTINE DEPENDENCE, CIGARETTES, UNCOMPL 07/20/2018 HERNAN CRUZ MD Ot F32.9 MAJOR DEPRESSIVE DISORDER, SINGLE EPISOD 07/20/2018 HERNAN CRUZ MD Ot F41.9 ANXIETY DISORDER, UNSPECIFIED 07/20/2018 HERNAN CRUZ MD Ot G47.30 SLEEP APNEA, UNSPECIFIED 07/20/2018 HERNAN CRUZ MD Ot 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, LEFT EYE, OSIEL 07/20/2018 HERNAN CRUZ MD Ot I10 ESSENTIAL (PRIMARY) HYPERTENSION 07/20/2018 HERNAN CRUZ MD Ot I25.10 ATHSCL HEART DISEASE OF [place] CORONARY 07/20/2018 HERNAN CRUZ MD Ot I34.0 NONRHEUMATIC MITRAL (VALVE) INSUFFICIENC 07/20/2018 HERNAN CRUZ MD Ot I63.9 CEREBRAL INFARCTION, UNSPECIFIED 07/20/2018 HERNAN CRUZ MD Ot I65.21 OCCLUSION AND STENOSIS OF RIGHT CAROTID 07/20/2018 HERNAN CRUZ MD Ot I89.0 LYMPHEDEMA, NOT ELSEWHERE CLASSIFIED 07/20/2018 HERNAN CRUZ MD, Ot M19.91 PRIMARY OSTEOARTHRITIS, UNSPECIFIED SITE 07/20/2018 HERNAN CRUZ MD, Ot N39.0 URINARY TRACT INFECTION, SITE NOT SPECIF 07/20/2018 HERNAN CRUZ MD, Ot Z79.01 BAIT PAINTER (CURRENT) USE OF ANTICOAGULANT 07/20/2018 HERNAN CRUZ MD, Ot Z85.41 PERSONAL HISTORY OF MALIGNANT NEOPLASM O 07/20/2018 HERNAN CRUZ MD, Ot 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 07/20/2018 HERNAN CRUZ MD, Ot Z86.718 PERSONAL HISTORY OF OTHER VENOUS THROMBO 07/20/2018 HERNAN CRUZ MD, Ot Z91.19 PATIENT'S NONCOMPLIANCE W [facility] MEDICAL TR 07/20/2018 HERNAN CRUZ MD, Ot Z92.21 PERSONAL HISTORY OF ANTINEOPLASTIC CHEMO 07/21/2018 HERNAN CRUZ MD Ot E78.00 PURE HYPERCHOLESTEROLEMIA, UNSPECIFIED 07/21/2018 HERNAN CRUZ MD Ot E78.2 MIXED HYPERLIPIDEMIA 07/21/2018 HERNAN CRUZ MD Ot E78.5 HYPERLIPIDEMIA, UNSPECIFIED 07/21/2018 HERNAN CRUZ MD Ot E87.6 HYPOKALEMIA 07/21/2018 HERNAN CRUZ MD Ot F17.210 NICOTINE DEPENDENCE, CIGARETTES, UNCOMPL 07/21/2018 HERNAN CRUZ MD Ot F32.9 MAJOR DEPRESSIVE DISORDER, SINGLE EPISOD 07/21/2018 HERNAN CRUZ MD Ot F41.9 ANXIETY DISORDER, UNSPECIFIED 07/21/2018 HERNAN CRUZ MD Ot G47.30 SLEEP APNEA, UNSPECIFIED 07/21/2018 HERNAN CRUZ MD Ot 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, LEFT 07/21/2018 HERNAN CRUZ MD Ot 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, LEFT EYE, OSIEL 07/21/2018 HERNAN CRUZ MD Ot I10 ESSENTIAL (PRIMARY) HYPERTENSION 07/21/2018 HERNAN CRUZ MD, Ot I25.10 ATHSCL HEART DISEASE OF [place] CORONARY 07/21/2018 HERNAN CRUZ MD, Ot I34.0 NONRHEUMATIC MITRAL (VALVE) INSUFFICIENC 07/21/2018 HERNAN CRUZ MD, Ot I63.9 CEREBRAL INFARCTION, UNSPECIFIED 07/21/2018 HERNAN CRUZ MD, Ot I65.21 OCCLUSION AND STENOSIS OF RIGHT CAROTID 07/21/2018 HERNAN CRUZ MD, Ot I65.23 OCCLUSION AND STENOSIS OF BILATERAL [place] 07/21/2018 HERNAN CRUZ MD, Ot I89.0 LYMPHEDEMA, NOT ELSEWHERE CLASSIFIED 07/21/2018 HERNAN CRUZ MD, Ot K52.9 NONINFECTIVE GASTROENTERITIS AND COLITIS 07/21/2018 HERNAN CRUZ MD, Ot M10.9 GOUT, UNSPECIFIED 07/21/2018 HERNAN CRUZ MD, Ot M19.91 PRIMARY OSTEOARTHRITIS, UNSPECIFIED SITE 07/21/2018 HERNAN CRUZ MD, Ot M32.9 SYSTEMIC LUPUS ERYTHEMATOSUS, UNSPECIFIE 07/21/2018 HERNAN CRUZ MD, Ot N39.0 URINARY TRACT INFECTION, SITE NOT SPECIF 07/21/2018 HERNAN CRUZ MD, Ot Z79.01 [facility] (CURRENT) USE OF ANTICOAGULANT 07/21/2018 HERNAN CRUZ MD, Ot Z82.49 FAMILY HX OF [place] HEART DIS AND OTH DI 07/21/2018 HERNAN CRUZ MD, Ot Z85.41 PERSONAL HISTORY OF MALIGNANT NEOPLASM O 07/21/2018 HERNAN CRUZ MD, Ot 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 07/21/2018 HERNAN CRUZ MD, Ot Z86.718 PERSONAL HISTORY OF OTHER VENOUS THROMBO 07/21/2018 HERNAN CRUZ MD, Ot Z91.19 PATIENT'S NONCOMPLIANCE W OT MEDICAL TR 07/21/2018 HERNAN CRUZ MD, Ot Z91.81 HISTORY OF FALLING 07/21/2018 HERNAN CRUZ MD, Ot Z92.21 PERSONAL HISTORY OF ANTINEOPLASTIC CHEMO 07/31/2018 SERINA DEL REAL DO Ot E78.5 HYPERLIPIDEMIA, UNSPECIFIED 07/31/2018 DEL REAL DO, SERINA Ot F17.210 NICOTINE DEPENDENCE, CIGARETTES, UNCOMPL 07/31/2018 COY DEL REAL DOI Ot F32.9 MAJOR DEPRESSIVE DISORDER, SINGLE EPISOD 07/31/2018 SERINA DEL REAL DO Ot F41.9 ANXIETY DISORDER, UNSPECIFIED 07/31/2018 GT PORTILLO SERINA Ot 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, LEFT 07/31/2018 COY DEL REAL DOI Ot I10 ESSENTIAL (PRIMARY) HYPERTENSION 07/31/2018 COY DEL REAL DOI Ot I25.10 ATHSCL HEART DISEASE OF [place] CORONARY 07/31/2018 GT PORTILLO SERINA Ot I65.23 OCCLUSION AND STENOSIS OF [place]ILATERAL [place] 07/31/2018 GT PORTILLO SERINA Ot I69.398 OTHER SEQUELAE OF CEREBRAL INFARCTION 07/31/2018 GT PORTILLO SERINA Ot I82.3 EMBOLISM AND THROMBOSIS OF RENAL [place] 07/31/2018 GT PORTILLO SERINA Ot I89.0 LYMPHEDEMA, NOT ELSEWHERE CLASSIFIED 07/31/2018 GT PORTILLO SERINA Ot L60.0 INGROWING NAIL 07/31/2018 GT PORTILLO SERINA Ot M10.9 GOUT, UNSPECIFIED 07/31/2018 GT PORTILLO SERINA Ot M32.9 SYSTEMIC LUPUS ERYTHEMATOSUS, UNSPECIFIE 07/31/2018 GT PORTILLO SERINA Ot N39.0 URINARY TRACT INFECTION, SITE NOT SPECIF 07/31/2018 GT PORTILLO SERINA Ot R19.7 DIARRHEA, UNSPECIFIED 07/31/2018 GT PORTILLO SERINA Ot R20.0 ANESTHESIA OF SKIN 07/31/2018 GT PORTILLO SERINA Ot R26.81 UNSTEADINESS ON FEET 07/31/2018 GT PORTILLO SERINA Ot R27.8 OTHER LACK OF COORDINATION 07/31/2018 GT PORTILLO SERINA Ot R29.6 REPEATED FALLS 07/31/2018 COY DEL REAL DOI Ot R53.1 WEAKNESS 07/31/2018 GT PORTILLO SERINA Ot Z79.01 [facility] (CURRENT) USE OF ANTICOAGULANT 07/31/2018 GT PORTILLO SERINA Ot Z82.3 FAMILY HISTORY OF STROKE 07/31/2018 COY DEL REAL DOI Ot Z82.49 FAMILY HX OF I[place] HEART DIS AND OTH DI 07/31/2018 SERINA DEL REAL DO Ot Z85.41 PERSONAL HISTORY OF MALIGNANT NEOPLASM O 07/31/2018 SERINA DEL REAL DO Ot 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 Procedures Code Description Performed [place] [id number] MAMMOGRAM DX, RIGHT 04/13/2012 [id number] MAMMOGRAM, SCREENING 04/14/2012 18950 ROUTINE VENIPUNCTURE 05/12/2012 64941 LIPID PANEL 05/12/2012 06139 CBC 05/12/2012 48317 CMP 05/12/2012 [id number] GFR CALC (RESULT ONLY) 05/12/2012 28287 TSH 05/12/2012 01648 TRIGGER POINT INJ/1-2 MUS 07/14/2012 10739 ROUTINE VENIPUNCTURE 08/10/2012 09413 CMP 08/10/2012 81399 LIPID PANEL 08/10/2012 [id number] GFR CALC (RESULT ONLY) 08/10/2012 06639 CULTURE URINE 09/21/2012 43523 UA W/ CULTURE IF INDICATED 09/21/2012 25435 ROUTINE VENIPUNCTURE 11/24/2012 57330 RENAL PROFILE 11/24/2012 76645 LIPID PANEL 11/24/2012 35292 MAGNESIUM 11/24/2012 [id number] GFR CALC (RESULT ONLY) 11/24/2012 PRO/CRE URINE PROTEIN TO CREATNINE RATIO 11/24/2012 Otolaryng Emilio Su 11/30/2012 61738 ROUTINE VENIPUNCTURE 01/22/2013 77550 CRP 01/22/2013 57865 RA FACTOR 01/23/2013 ANAANA SOPHIE ANALYZER (SCREEN) 01/23/2013 85292 CCP ANTIBODY 01/23/2013 [id number] TITER SOPHIE (RESULT ONLY) 01/25/2013 [id number] INT DNA (RESULT ONLY) 01/25/2013 [id number] INT MICHELINE (RESULT ONLY) 01/25/2013 04158 DNA ANTIBODY (DOUBLE STRAND) 01/26/2013 21123 MICHELINE SCR 01/26/2013 93451 JOINT INJECTION- LARGE JOINT (SPECIFY MEDCIN DESCRIPTION) 02/22/2013 49971 ROUTINE VENIPUNCTURE 02/24/2013 96876 EYE EXAM PERFORMED 02/24/2013 80111 CBC 02/24/2013 54948 INFLUENZA A & B (IN-HOUSE) 03/11/2013 80119 EYE EXAM PERFORMED 03/29/2013 57230 OXIMETRY 04/19/2013 82474 OXIMETRY 05/05/2013 05699 ROUTINE VENIPUNCTURE 2013 32044 CBC 2013 63175 UA W/ CULTURE IF INDICATED 09/13/2013 74709 INFLUENZA A & B (IN-HOUSE) 05/04/2014 68326 OXIMETRY 05/04/2014 Results Test Result Range Complete [...] Automated erythrocyte mean corpuscular hemoglobin concentration measurement (mass/volume) 34 g/dL 32-36 Automated erythrocyte distribution width ratio 13.7 % 10.0- 14.5 Automated blood platelet count (count/volume) 250 10*3/uL [...] Blood monocytes automated count (number/volume) 0.5 10*3 0.0- 1.0 Automated eosinophil count 0.0 10*3/uL 0.0-0.3 Automated [...] Serum or plasma aspartate aminotransferase measurement (enzymatic activity/volume) 15 U/L 5-34 Serum or plasma alanine aminotransferase measurement (enzymatic activity/volume) 18 U/L 0-55 Serum or plasma protein [...] gravity of urine by test strip 1.010 1.016-1.022 Urine protein assay by test strip, semi-quantitative [...] sediment leukocyte count by microscopy (number/high power field) NONE NRG Bacteria detection in urine sediment by light microscopy NEGATIVE NRG Squamous epithelial cells detection in urine sediment by light microscopy 10-25 NRG Crystals detection in urine sediment by light microscopy NONE NRG Casts detection in urine sediment by light microscopy NONE NRG Mucus detection in urine sediment by light microscopy NEGATIVE NRG Complete urinalysis with reflex to culture NO NRG CMP - 12/20/16 10:50 Glucose, Serum 112 [...] ISOMERS - 06/25/17 19:08 Prescribed Drug 1 [place](TM) NRG COMMENT NRG Amphetamine NEGATIVE ng/mL <250 [...] Automated erythrocyte mean corpuscular hemoglobin concentration measurement (mass/volume) 33 g/dL 32-36 Automated erythrocyte distribution width ratio 14.5 % 10.0- 14.5 Automated blood platelet count (count/volume) 305 10*3/uL [...] Blood monocytes automated count (number/volume) 0.7 10*3 0.0- 1.0 Automated eosinophil count 0.1 10*3/uL 0.0-0.3 Automated [...] Serum or plasma aspartate aminotransferase measurement (enzymatic activity/volume) 15 U/L 5-34 Serum or plasma alanine aminotransferase measurement (enzymatic activity/volume) 12 U/L 0-55 Serum or plasma protein measurement (mass/volume) 7.0 g/dL 6.4-8.2 Serum or plasma albumin measurement (mass/volume) 3.9 g/dL 3.2-4.5 Magnesium - 08/07/17 13:45 Magnesium 2.0 mg/dL 1.8-2.4 Serum or plasma troponin i.cardiac measurement (mass/volume) - 08/07/17 13:45 Serum or plasma troponin i.cardiac measurement (mass/volume) < ng/mL <0.30 Serum or plasma lithium measurement (moles/volume) - 08/07/17 13:45 BNP level 298.6 pg/mL <100.0 Myoglobin, serum - 08/07/17 13:45 Myoglobin, serum 59.2 ng/mL 10.0-92.0 Serum or plasma troponin i.cardiac measurement (mass/volume) - 08/07/17 16:23 Serum or plasma troponin i.cardiac measurement (mass/volume) < ng/mL <0.30 Complete blood count (CBC) with automated white blood cell (WBC) differential - 12/19/17 08:20 Blood leukocytes automated count (number/volume) 15.2 10*3/uL 4.3-11.0 Blood erythrocytes automated count (number/volume) 4.66 10*6/uL 4.35-5.85 Venous blood hemoglobin measurement (mass/volume) 14.1 g/dL 11.5-16.0 Blood hematocrit (volume fraction) 40 % 35-52 Automated erythrocyte mean corpuscular volume 86 [foz_us] 80-99 Automated erythrocyte mean corpuscular hemoglobin (mass per erythrocyte) 30 pg 25-34 Automated erythrocyte mean corpuscular hemoglobin concentration measurement (mass/volume) 35 g/dL 32-36 Automated erythrocyte distribution width ratio 14.8 % 10.0- 14.5 Automated blood platelet count (count/volume) 200 10*3/uL 130-400 Automated blood platelet mean volume measurement 11.9 [foz_us] 7.4-10.4 Automated blood neutrophils/100 leukocytes 82 % 42-75 Automated blood lymphocytes/100 leukocytes 8 % 12-44 Blood monocytes/100 leukocytes 9 % 0-12 Automated blood eosinophils/100 leukocytes 2 % 0-10 Automated blood basophils/100 leukocytes 0 % 0-10 Blood neutrophils automated count (number/volume) 12.4 10*3 1.8-7.8 Blood lymphocytes automated count (number/volume) 1.2 10*3 1.0-4.0 Blood monocytes automated count (number/volume) 1.3 10*3 0.0- 1.0 Automated eosinophil count 0.2 10*3/uL 0.0-0.3 Automated blood basophil count (count/volume) 0.0 10*3/uL 0.0-0.1 Complete urinalysis with reflex to culture - 12/19/17 08:20 Urine color determination YELLOW NRG Urine clarity determination CLEAR NRG Urine pH measurement by test strip 6 5-9 Specific gravity of urine by test strip 1.015 1.016-1.022 Urine protein assay by test strip, semi-quantitative 1+ NEGATIVE Urine glucose detection by automated test [...] sediment leukocyte count by microscopy (number/high power field) NONE NRG Bacteria detection in urine sediment by light microscopy NEGATIVE NRG Squamous epithelial cells detection in urine sediment by light microscopy NONE NRG Crystals detection in urine sediment by light microscopy NONE NRG Casts detection in urine sediment by light microscopy NONE NRG Mucus detection in urine sediment by light microscopy NEGATIVE NRG Complete urinalysis with reflex to culture NO NRG Comprehensive metabolic panel - 12/19/17 08:20 Serum or plasma sodium measurement (moles/volume) 135 mmol/L 135-145 Serum or plasma potassium measurement (moles/volume) 3.7 mmol/L 3.6-5.0 Serum or plasma chloride measurement (moles/volume) 102 mmol/L 98-107 Carbon dioxide 19 mmol/L 21-32 Serum or plasma anion gap determination (moles/volume) 14 mmol/L 5-14 Serum or plasma urea nitrogen measurement (mass/volume) 18 mg/dL 7-18 Serum or plasma creatinine measurement (mass/volume) 1.16 mg/dL 0.60-1.30 Serum or plasma urea nitrogen/creatinine mass ratio 16 NRG Serum or plasma creatinine measurement with calculation of estimated glomerular filtration rate 46 NRG Serum or plasma glucose measurement (mass/volume) 116 mg/dL 70-105 Serum or plasma calcium measurement (mass/volume) 8.9 mg/dL 8.5-10.1 Serum or plasma total bilirubin measurement (mass/volume) 1.0 mg/dL 0.1-1.0 Serum or plasma alkaline phosphatase measurement (enzymatic activity/volume) 70 U/L 40-136 Serum or plasma aspartate aminotransferase measurement (enzymatic activity/volume) 34 U/L 5-34 Serum or plasma alanine aminotransferase measurement (enzymatic activity/volume) 24 U/L 0-55 Serum or plasma protein measurement (mass/volume) 6.9 g/dL 6.4-8.2 Serum or plasma albumin measurement (mass/volume) 3.7 g/dL 3.2-4.5 CALCIUM CORRECTED 9.1 mg/dL 8.5-10.1 Serum or plasma troponin i.cardiac measurement (mass/volume) - 12/19/17 08:20 Serum or plasma troponin i.cardiac measurement (mass/volume) < ng/mL <0.30 Blood manual differential performed detection - 12/19/17 08:20 Blood monocytes/100 leukocytes 7 % NRG Manual blood segmented neutrophils/100 leukocytes 85 % NRG Blood band neutrophils/100 leukocytes 0 % NRG Manual blood lymphocytes/100 leukocytes 7 % NRG Manual eosinophils/100 leukocytes in nose 0 % NRG Manual blood basophils/100 leukocytes 1 % NRG Blood erythrocyte morphology finding identification NORMAL NRG Blood platelet clump detection by light microscopy OCCASIONAL NRG PT panel in platelet poor plasma by coagulation assay - 12/19/17 08:20 Prothrombin time (PT) in platelet poor plasma by coagulation assay 13.7 s 12.2-14.7 INR in platelet poor plasma or blood by coagulation assay 1.1 0.8-1.4 Serum or plasma creatine kinase MB measurement (enzymatic activity/volume) - 12/19/17 08:20 Serum or plasma creatine kinase MB measurement (enzymatic activity/volume) 1.9 ng/mL <6.6 Myoglobin, serum - 12/19/17 08:20 Myoglobin, serum 181.1 ng/mL 10.0-92.0 Blood lactic acid measurement (moles/volume) - 12/19/17 09:19 Blood lactic acid measurement (moles/volume) 2.35 mmol/L 0.50- 2.00 Bacterial blood culture - 12/19/17 09:19 QUANTITY OF GROWTH Isolated NRG Bacterial blood culture [id number] NRG Bacterial blood culture - 12/19/17 09:24 Bacterial blood culture NG NRG PDM - 09 PANEL (PROFILE 1) - 01/30/18 11:08 Prescribed Drug 1 Hydrocodone NRG Creatinine 147.6 mg/dL > or=20.0 pH 7.22 4.5 - 9.0 Oxidant NEGATIVE mcg/mL <200 Amphetamines NEGATIVE ng/mL <500 medMATCH Amphetamines CONSISTENT NRG Benzodiazepines NEGATIVE ng/mL <100 medMATCH Benzodiazepines CONSISTENT NRG Marijuana Metabolite NEGATIVE ng/mL <20 medMATCH Marijuana Metab CONSISTENT NRG Cocaine Metabolite NEGATIVE ng/mL <150 medMATCH Cocaine Metab CONSISTENT NRG Opiates POSITIVE ng/mL <100 Oxycodone NEGATIVE ng/mL <100 medMATCH Oxycodone CONSISTENT NRG COMMENT NRG Codeine NEGATIVE ng/mL <50 medMATCH Codeine CONSISTENT NRG Hydrocodone 350 ng/mL <50 medMATCH Hydrocodone CONSISTENT NRG Hydromorphone NEGATIVE ng/mL <50 medMATCH Hydromorphone CONSISTENT NRG Morphine NEGATIVE ng/mL <50 medMATCH Morphine CONSISTENT NRG Norhydrocodone 353 ng/mL <50 medMATCH Norhydrocodone CONSISTENT NRG Barbiturates NEGATIVE ng/mL <300 medMATCH Barbiturates CONSISTENT NRG Methadone Metabolite NEGATIVE ng/mL <100 medMATCH Methadone Metab CONSISTENT NRG Phencyclidine NEGATIVE ng/mL <25 medMATCH Phencyclidine CONSISTENT NRG Complete urinalysis with reflex to culture - 02/12/18 00:50 Urine color determination YELLOW NRG Urine clarity determination SL CLOUDY NRG Urine pH measurement by test strip 5 5-9 Specific gravity of urine by test strip 1.025 1.016-1.022 Urine protein assay by test strip, semi-quantitative 2+ NEGATIVE Urine glucose detection by automated test strip NEGATIVE NEGATIVE Erythrocytes detection in urine sediment by light microscopy 5+ NEGATIVE Urine ketones detection by automated test strip NEGATIVE NEGATIVE Urine nitrite detection by test strip NEGATIVE NEGATIVE Urine total bilirubin detection by test strip NEGATIVE NEGATIVE Urine urobilinogen measurement by automated test strip (mass/volume) 1 mg/dL NORMAL Urine leukocyte esterase detection by dipstick 2+ NEGATIVE Automated urine sediment erythrocyte count by microscopy (number/high power field) [HPF] NRG Automated urine sediment leukocyte count by microscopy (number/high power field) [HPF] NRG Bacteria detection in urine sediment by light microscopy MODERATE NRG Squamous epithelial cells detection in urine sediment by light microscopy 2-5 NRG Crystals detection in urine sediment by light microscopy NONE NRG Casts detection in urine sediment by light microscopy NONE NRG Mucus detection in urine sediment by light microscopy NEGATIVE NRG Complete urinalysis with reflex to culture YES NRG Bacterial urine culture - 02/12/18 00:50 Bacterial urine culture SEE COMMEN NRG COLONY COUNT . NRG Complete blood count (CBC) with automated white blood cell (WBC) differential - 02/12/18 01:15 Blood leukocytes automated count (number/volume) 9.9 10*3/uL 4.3-11.0 Blood erythrocytes automated count (number/volume) 4.24 10*6/uL 4.35-5.85 Venous blood hemoglobin measurement (mass/volume) 12.4 g/dL 11.5-16.0 Blood hematocrit (volume fraction) 38 % 35-52 Automated erythrocyte mean corpuscular volume 91 [foz_us] 80-99 Automated erythrocyte mean corpuscular hemoglobin (mass per erythrocyte) 29 pg 25-34 Automated erythrocyte mean corpuscular hemoglobin concentration measurement (mass/volume) 32 g/dL 32-36 Automated erythrocyte distribution width ratio 15.5 % 10.0- 14.5 Automated blood platelet count (count/volume) 281 10*3/uL 130-400 Automated blood platelet mean volume measurement 10.3 [foz_us] 7.4-10.4 Automated blood neutrophils/100 leukocytes 83 % 42-75 Automated blood lymphocytes/100 leukocytes 12 % 12-44 Blood monocytes/100 leukocytes 5 % 0-12 Automated blood eosinophils/100 leukocytes 0 % 0-10 Automated blood basophils/100 leukocytes 0 % 0-10 Blood neutrophils automated count (number/volume) 8.2 10*3 1.8-7.8 Blood lymphocytes automated count (number/volume) 1.2 10*3 1.0-4.0 Blood monocytes automated count (number/volume) 0.5 10*3 0.0- 1.0 Automated eosinophil count 0.0 10*3/uL 0.0-0.3 Automated blood basophil count (count/volume) 0.0 10*3/uL 0.0-0.1 PT panel in platelet poor plasma by coagulation assay - 02/12/18 01:15 Prothrombin time (PT) in platelet poor plasma by coagulation assay 17.5 s 12.2-14.7 INR in platelet poor plasma or blood by coagulation assay 1.4 0.8-1.4 Activated partial thromboplastin time (aPTT) in platelet poor plasma bycoagulation assay - 02/12/18 01:15 Activated partial thromboplastin time (aPTT) in platelet poor plasma bycoagulation assay 25 s 24-35 Comprehensive metabolic panel - 02/12/18 01:15 Serum or plasma sodium measurement (moles/volume) 141 mmol/L 135-145 Serum or plasma potassium measurement (moles/volume) 4.3 mmol/L 3.6-5.0 Serum or plasma chloride measurement (moles/volume) 110 mmol/L 98-107 Carbon dioxide 17 mmol/L 21-32 Serum or plasma anion gap determination (moles/volume) 14 mmol/L 5-14 Serum or plasma urea nitrogen measurement (mass/volume) 29 mg/dL 7-18 Serum or plasma creatinine measurement (mass/volume) 1.66 mg/dL 0.60-1.30 Serum or plasma urea nitrogen/creatinine mass ratio 17 NRG Serum or plasma creatinine measurement with calculation of estimated glomerular filtration rate 31 NRG Serum or plasma glucose measurement (mass/volume) 120 mg/dL 70-105 Serum or plasma calcium measurement (mass/volume) 9.0 mg/dL 8.5-10.1 Serum or plasma total bilirubin measurement (mass/volume) 0.4 mg/dL 0.1-1.0 Serum or plasma alkaline phosphatase measurement (enzymatic activity/volume) 77 U/L 40-136 Serum or plasma aspartate aminotransferase measurement (enzymatic activity/volume) 18 U/L 5-34 Serum or plasma alanine aminotransferase measurement (enzymatic activity/volume) 19 U/L 0-55 Serum or plasma protein measurement (mass/volume) 6.5 g/dL 6.4-8.2 Serum or plasma albumin measurement (mass/volume) 3.9 g/dL 3.2-4.5 CALCIUM CORRECTED 9.1 mg/dL 8.5-10.1 Complete blood count (CBC) with automated white blood cell (WBC) differential - 05/09/18 21:06 Blood leukocytes automated count (number/volume) 12.8 10*3/uL 4.3-11.0 Blood erythrocytes automated count (number/volume) 4.98 10*6/uL 4.35-5.85 Venous blood hemoglobin measurement (mass/volume) 14.4 g/dL 11.5-16.0 Blood hematocrit (volume fraction) 44 % 35-52 Automated erythrocyte mean corpuscular volume 88 [foz_us] 80-99 Automated erythrocyte mean corpuscular hemoglobin (mass per erythrocyte) 29 pg 25-34 Automated erythrocyte mean corpuscular hemoglobin concentration measurement (mass/volume) 33 g/dL 32-36 Automated erythrocyte distribution width ratio 13.5 % 10.0- 14.5 Automated blood platelet count (count/volume) 299 10*3/uL 130-400 Automated blood platelet mean volume measurement 11.5 [foz_us] 7.4-10.4 Automated blood neutrophils/100 leukocytes 77 % 42-75 Automated blood lymphocytes/100 leukocytes 13 % 12-44 Blood monocytes/100 leukocytes 9 % 0-12 Automated blood eosinophils/100 leukocytes 2 % 0-10 Automated blood basophils/100 leukocytes 0 % 0-10 Blood neutrophils automated count (number/volume) 9.8 10*3 1.8-7.8 Blood lymphocytes automated count (number/volume) 1.6 10*3 1.0-4.0 Blood monocytes automated count (number/volume) 1.2 10*3 0.0- 1.0 Automated eosinophil count 0.2 10*3/uL 0.0-0.3 Automated blood basophil count (count/volume) 0.0 10*3/uL 0.0-0.1 Fibrin D-dimer FEU measurement in platelet poor plasma (mass/volume) - 05/09/18 21:06 Fibrin D-dimer FEU measurement in platelet poor plasma (mass/volume) 2.44 ug/mL 0.00-0.49 Comprehensive metabolic panel - 05/09/18 21:06 Serum or plasma sodium measurement (moles/volume) 139 mmol/L 135-145 Serum or plasma potassium measurement (moles/volume) 2.7 mmol/L 3.6-5.0 Serum or plasma chloride measurement (moles/volume) 101 mmol/L 98-107 Carbon dioxide 22 mmol/L 21-32 Serum or plasma anion gap determination (moles/volume) 16 mmol/L 5-14 Serum or plasma urea nitrogen measurement (mass/volume) 19 mg/dL 7-18 Serum or plasma creatinine measurement (mass/volume) 1.62 mg/dL 0.60-1.30 Serum or plasma urea nitrogen/creatinine mass ratio 12 NRG Serum or plasma creatinine measurement with calculation of estimated glomerular filtration rate 31 NRG Serum or plasma glucose measurement (mass/volume) 90 mg/dL 70-105 Serum or plasma calcium measurement (mass/volume) 9.9 mg/dL 8.5-10.1 Serum or plasma total bilirubin measurement (mass/volume) 0.6 mg/dL 0.1-1.0 Serum or plasma alkaline phosphatase measurement (enzymatic activity/volume) 111 U/L 40-136 Serum or plasma aspartate aminotransferase measurement (enzymatic activity/volume) 26 U/L 5-34 Serum or plasma alanine aminotransferase measurement (enzymatic activity/volume) 24 U/L 0-55 Serum or plasma protein measurement (mass/volume) 7.1 g/dL 6.4-8.2 Serum or plasma albumin measurement (mass/volume) 3.7 g/dL 3.2-4.5 CALCIUM CORRECTED 10.1 mg/dL 8.5-10.1 Serum or plasma uric acid measurement (mass/volume) - 05/09/18 21:06 Serum or plasma uric acid measurement (mass/volume) 7.8 mg/dL 2.6-7.2 Serum or plasma C reactive protein measurement (mass/volume) - 05/09/18 21:06 Serum or plasma C reactive protein measurement (mass/volume) 7.69 mg/dL 0.00-0.50 PT panel in platelet poor plasma by coagulation assay - 05/09/18 21:06 Prothrombin time (PT) in platelet poor plasma by coagulation assay 19.7 s 12.2-14.7 INR in platelet poor plasma or blood by coagulation assay 1.7 0.8-1.4 Activated partial thromboplastin time (aPTT) in platelet poor plasma bycoagulation assay - 05/09/18 21:06 Activated partial thromboplastin time (aPTT) in platelet poor plasma bycoagulation assay 41 s 24-35 Complete blood count (CBC) with automated white blood cell (WBC) differential - 07/15/18 12:08 Blood leukocytes automated count (number/volume) 10.7 10*3/uL 4.3-11.0 Blood erythrocytes automated count (number/volume) 4.01 10*6/uL 4.35-5.85 Venous blood hemoglobin measurement (mass/volume) 11.4 g/dL 11.5-16.0 Blood hematocrit (volume fraction) 35 % 35-52 Automated erythrocyte mean corpuscular volume 87 [foz_us] 80-99 Automated erythrocyte mean corpuscular hemoglobin (mass per erythrocyte) 28 pg 25-34 Automated erythrocyte mean corpuscular hemoglobin concentration measurement (mass/volume) 33 g/dL 32-36 Automated erythrocyte distribution width ratio 15.7 % 10.0- 14.5 Automated blood platelet count (count/volume) 303 10*3/uL 130-400 Automated blood platelet mean volume measurement 10.3 [foz_us] 7.4-10.4 Automated blood neutrophils/100 leukocytes 85 % 42-75 Automated blood lymphocytes/100 leukocytes 7 % 12-44 Blood monocytes/100 leukocytes 7 % 0-12 Automated blood eosinophils/100 leukocytes 1 % 0-10 Automated blood basophils/100 leukocytes 0 % 0-10 Blood neutrophils automated count (number/volume) 9.1 10*3 1.8-7.8 Blood lymphocytes automated count (number/volume) 0.7 10*3 1.0-4.0 Blood monocytes automated count (number/volume) 0.7 10*3 0.0- 1.0 Automated eosinophil count 0.1 10*3/uL 0.0-0.3 Automated blood basophil count (count/volume) 0.0 10*3/uL 0.0-0.1 PT panel in platelet poor plasma by coagulation assay - 07/15/18 12:08 Prothrombin time (PT) in platelet poor plasma by coagulation assay 42.9 s 12.2-14.7 INR in platelet poor plasma or blood by coagulation assay 4.3 0.8-1.4 Activated partial thromboplastin time (aPTT) in platelet poor plasma bycoagulation assay - 07/15/18 12:08 Activated partial thromboplastin time (aPTT) in platelet poor plasma bycoagulation assay 46 s 24-35 Comprehensive metabolic panel - 07/15/18 12:08 Serum or plasma sodium measurement (moles/volume) 139 mmol/L 135-145 Serum or plasma potassium measurement (moles/volume) 3.1 mmol/L 3.6-5.0 Serum or plasma chloride measurement (moles/volume) 103 mmol/L 98-107 Carbon dioxide 24 mmol/L 21-32 Serum or plasma anion gap determination (moles/volume) 12 mmol/L 5-14 Serum or plasma urea nitrogen measurement (mass/volume) 15 mg/dL 7-18 Serum or plasma creatinine measurement (mass/volume) 0.99 mg/dL 0.60-1.30 Serum or plasma urea nitrogen/creatinine mass ratio 15 NRG Serum or plasma creatinine measurement with calculation of estimated glomerular filtration rate 55 NRG Serum or plasma glucose measurement (mass/volume) 98 mg/dL 70-105 Serum or plasma calcium measurement (mass/volume) 8.9 mg/dL 8.5-10.1 Serum or plasma total bilirubin measurement (mass/volume) 0.5 mg/dL 0.1-1.0 Serum or plasma alkaline phosphatase measurement (enzymatic activity/volume) 82 U/L 40-136 Serum or plasma aspartate aminotransferase measurement (enzymatic activity/volume) 14 U/L 5-34 Serum or plasma alanine aminotransferase measurement (enzymatic activity/volume) 15 U/L 0-55 Serum or plasma protein measurement (mass/volume) 6.3 g/dL 6.4-8.2 Serum or plasma albumin measurement (mass/volume) 3.4 g/dL 3.2-4.5 CALCIUM CORRECTED 9.4 mg/dL 8.5-10.1 Blood manual differential performed detection - 07/15/18 12:08 Blood monocytes/100 leukocytes 2 % NRG Manual blood segmented neutrophils/100 leukocytes 86 % NRG Blood band neutrophils/100 leukocytes 5 % NRG Manual blood lymphocytes/100 leukocytes 5 % NRG Manual eosinophils/100 leukocytes in nose 2 % NRG Manual blood basophils/100 leukocytes 0 % NRG Blood erythrocyte morphology finding identification NORMAL NRG Complete urinalysis with reflex to culture - 07/15/18 12:34 Urine color determination YELLOW NRG Urine clarity determination CLEAR NRG Urine pH measurement by test strip 7 5-9 Specific gravity of urine by test strip 1.010 1.016-1.022 Urine protein assay by test strip, semi-quantitative 1+ NEGATIVE Urine glucose detection by automated test strip NEGATIVE NEGATIVE Erythrocytes detection in urine sediment by light microscopy 2+ NEGATIVE Urine ketones detection by automated test strip NEGATIVE NEGATIVE Urine nitrite detection by test strip POSITIVE NEGATIVE Urine total bilirubin detection by test strip NEGATIVE NEGATIVE Urine urobilinogen measurement by automated test strip (mass/volume) 1 mg/dL NORMAL Urine leukocyte esterase detection by dipstick 3+ NEGATIVE Automated urine sediment erythrocyte count by microscopy (number/high power field) [HPF] NRG Automated urine sediment leukocyte count by microscopy (number/high power field) [HPF] NRG Bacteria detection in urine sediment by light microscopy LARGE NRG Squamous epithelial cells detection in urine sediment by light microscopy 2-5 NRG Crystals detection in urine sediment by light microscopy NONE NRG Casts detection in urine sediment by light microscopy NONE NRG Mucus detection in urine sediment by light microscopy NEGATIVE NRG Complete urinalysis with reflex to culture YES NRG Bacterial urine culture - 07/15/18 12:34 Bacterial urine culture [id number] NRG COLONY COUNT >100,000/ML NRG RML Sensitivity Panel - 07/15/18 12:34 Gentamicin susceptibility test by minimum inhibitory concentration <= NRG Trimethoprim/sulfamethoxazole susceptibility test by minimum inhibitoryconcentration <= NRG Levofloxacin susceptibility test by minimum inhibitory concentration <= NRG Ampicillin susceptibility test by minimum inhibitory concentration <= NRG Cefazolin susceptibility test by minimum inhibitory concentration <= NRG Ceftriaxone susceptibility test by minimum inhibitory concentration <= NRG Ciprofloxacin susceptibility test by minimum inhibitory concentration <= NRG Meropenem susceptibility test by minimum inhibitory concentration <= NRG Nitrofurantoin susceptibility test by minimum inhibitory concentration 32 NRG Amoxicillin and clavulanate potassium susc TEE <= NRG Lipid 1996 panel - 07/16/18 04:25 Serum or plasma triglyceride measurement (mass/volume) 132 mg/dL <150 Serum or plasma cholesterol measurement (mass/volume) 177 mg/dL < 200 Serum or plasma cholesterol in HDL measurement (mass/volume) 38 mg/dL 40-60 Cholesterol in LDL [mass/volume] in serum or plasma by direct assay 113 mg/dL 1-129 Serum or plasma cholesterol in VLDL measurement (mass/volume) 26 mg/dL 5-40 THYROID STIMULATING HORMONE - 07/16/18 04:25 THYROID STIMULATING HORMONE 1.62 u[iU]/mL 0.35-4.94 Complete blood count (CBC) with automated white blood cell (WBC) differential - 07/16/18 10:25 Blood leukocytes automated count (number/volume) 10.0 10*3/uL 4.3-11.0 Blood erythrocytes automated count (number/volume) 4.26 10*6/uL 4.35-5.85 Venous blood hemoglobin measurement (mass/volume) 12.0 g/dL 11.5-16.0 Blood hematocrit (volume fraction) 37 % 35-52 Automated erythrocyte mean corpuscular volume 87 [foz_us] 80-99 Automated erythrocyte mean corpuscular hemoglobin (mass per erythrocyte) 28 pg 25-34 Automated erythrocyte mean corpuscular hemoglobin concentration measurement (mass/volume) 32 g/dL 32-36 Automated erythrocyte distribution width ratio 15.9 % 10.0- 14.5 Automated blood platelet count (count/volume) 327 10*3/uL 130-400 Automated blood platelet mean volume measurement 10.2 [foz_us] 7.4-10.4 Automated blood neutrophils/100 leukocytes 73 % 42-75 Automated blood lymphocytes/100 leukocytes 16 % 12-44 Blood monocytes/100 leukocytes 9 % 0-12 Automated blood eosinophils/100 leukocytes 2 % 0-10 Automated blood basophils/100 leukocytes 0 % 0-10 Blood neutrophils automated count (number/volume) 7.2 10*3 1.8-7.8 Blood lymphocytes automated count (number/volume) 1.6 10*3 1.0-4.0 Blood monocytes automated count (number/volume) 0.9 10*3 0.0- 1.0 Automated eosinophil count 0.2 10*3/uL 0.0-0.3 Automated blood basophil count (count/volume) 0.0 10*3/uL 0.0-0.1 PT panel in platelet poor plasma by coagulation assay - 07/16/18 10:25 Prothrombin time (PT) in platelet poor plasma by coagulation assay 28.1 s 12.2-14.7 INR in platelet poor plasma or blood by coagulation assay 2.5 0.8-1.4 Comprehensive metabolic panel - 07/16/18 10:25 Serum or plasma sodium measurement (moles/volume) 140 mmol/L 135-145 Serum or plasma potassium measurement (moles/volume) 3.0 mmol/L 3.6-5.0 Serum or plasma chloride measurement (moles/volume) 105 mmol/L 98-107 Carbon dioxide 24 mmol/L 21-32 Serum or plasma anion gap determination (moles/volume) 11 mmol/L 5-14 Serum or plasma urea nitrogen measurement (mass/volume) 16 mg/dL 7-18 Serum or plasma creatinine measurement (mass/volume) 1.25 mg/dL 0.60-1.30 Serum or plasma urea nitrogen/creatinine mass ratio 13 NRG Serum or plasma creatinine measurement with calculation of estimated glomerular filtration rate 42 NRG Serum or plasma glucose measurement (mass/volume) 95 mg/dL 70-105 Serum or plasma calcium measurement (mass/volume) 9.3 mg/dL 8.5-10.1 Serum or plasma total bilirubin measurement (mass/volume) 0.5 mg/dL 0.1-1.0 Serum or plasma alkaline phosphatase measurement (enzymatic activity/volume) 81 U/L 40-136 Serum or plasma aspartate aminotransferase measurement (enzymatic activity/volume) 15 U/L 5-34 Serum or plasma alanine aminotransferase measurement (enzymatic activity/volume) 16 U/L 0-55 Serum or plasma protein measurement (mass/volume) 6.3 g/dL 6.4-8.2 Serum or plasma albumin measurement (mass/volume) 3.5 g/dL 3.2-4.5 CALCIUM CORRECTED 9.7 mg/dL 8.5-10.1 Complete blood count (CBC) with automated white blood cell (WBC) differential - 07/17/18 05:28 Blood leukocytes automated count (number/volume) 9.1 10*3/uL 4.3-11.0 Blood erythrocytes automated count (number/volume) 4.29 10*6/uL 4.35-5.85 Venous blood hemoglobin measurement (mass/volume) 12.1 g/dL 11.5-16.0 Blood hematocrit (volume fraction) 38 % 35-52 Automated erythrocyte mean corpuscular volume 88 [foz_us] 80-99 Automated erythrocyte mean corpuscular hemoglobin (mass per erythrocyte) 28 pg 25-34 Automated erythrocyte mean corpuscular hemoglobin concentration measurement (mass/volume) 32 g/dL 32-36 Automated erythrocyte distribution width ratio 15.9 % 10.0- 14.5 Automated blood platelet count (count/volume) 290 10*3/uL 130-400 Automated blood platelet mean volume measurement 10.5 [foz_us] 7.4-10.4 Automated blood neutrophils/100 leukocytes 81 % 42-75 Automated blood lymphocytes/100 leukocytes 10 % 12-44 Blood monocytes/100 leukocytes 7 % 0-12 Automated blood eosinophils/100 leukocytes 2 % 0-10 Automated blood basophils/100 leukocytes 0 % 0-10 Blood neutrophils automated count (number/volume) 7.4 10*3 1.8-7.8 Blood lymphocytes automated count (number/volume) 0.9 10*3 1.0-4.0 Blood monocytes automated count (number/volume) 0.6 10*3 0.0- 1.0 Automated eosinophil count 0.1 10*3/uL 0.0-0.3 Automated blood basophil count (count/volume) 0.0 10*3/uL 0.0-0.1 PT panel in platelet poor plasma by coagulation assay - 07/17/18 05:28 Prothrombin time (PT) in platelet poor plasma by coagulation assay 23.0 s 12.2-14.7 INR in platelet poor plasma or blood by coagulation assay 1.9 0.8-1.4 Comprehensive metabolic panel - 07/17/18 05:28 Serum or plasma sodium measurement (moles/volume) 140 mmol/L 135-145 Serum or plasma potassium measurement (moles/volume) 3.5 mmol/L 3.6-5.0 Serum or plasma chloride measurement (moles/volume) 107 mmol/L 98-107 Carbon dioxide 20 mmol/L 21-32 Serum or plasma anion gap determination (moles/volume) 13 mmol/L 5-14 Serum or plasma urea nitrogen measurement (mass/volume) 18 mg/dL 7-18 Serum or plasma creatinine measurement (mass/volume) 1.25 mg/dL 0.60-1.30 Serum or plasma urea nitrogen/creatinine mass ratio 14 NRG Serum or plasma creatinine measurement with calculation of estimated glomerular filtration rate 42 NRG Serum or plasma glucose measurement (mass/volume) 98 mg/dL 70-105 Serum or plasma calcium measurement (mass/volume) 9.2 mg/dL 8.5-10.1 Serum or plasma total bilirubin measurement (mass/volume) 0.6 mg/dL 0.1-1.0 Serum or plasma alkaline phosphatase measurement (enzymatic activity/volume) 76 U/L 40-136 Serum or plasma aspartate aminotransferase measurement (enzymatic activity/volume) 15 U/L 5-34 Serum or plasma alanine aminotransferase measurement (enzymatic activity/volume) 15 U/L 0-55 Serum or plasma protein measurement (mass/volume) 6.2 g/dL 6.4-8.2 Serum or plasma albumin measurement (mass/volume) 3.4 g/dL 3.2-4.5 CALCIUM CORRECTED 9.7 mg/dL 8.5-10.1 Magnesium - 07/17/18 05:28 Magnesium 1.7 mg/dL 1.8-2.4 Complete blood count (CBC) with automated white blood cell (WBC) differential - 07/18/18 04:40 Blood leukocytes automated count (number/volume) 7.1 10*3/uL 4.3-11.0 Blood erythrocytes automated count (number/volume) 3.96 10*6/uL 4.35-5.85 Venous blood hemoglobin measurement (mass/volume) 11.0 g/dL 11.5-16.0 Blood hematocrit (volume fraction) 35 % 35-52 Automated erythrocyte mean corpuscular volume 89 [foz_us] 80-99 Automated erythrocyte mean corpuscular hemoglobin (mass per erythrocyte) 28 pg 25-34 Automated erythrocyte mean corpuscular hemoglobin concentration measurement (mass/volume) 31 g/dL 32-36 Automated erythrocyte distribution width ratio 15.8 % 10.0- 14.5 Automated blood platelet count (count/volume) 292 10*3/uL 130-400 Automated blood platelet mean volume measurement 10.4 [foz_us] 7.4-10.4 Automated blood neutrophils/100 leukocytes 68 % 42-75 Automated blood lymphocytes/100 leukocytes 19 % 12-44 Blood monocytes/100 leukocytes 9 % 0-12 Automated blood eosinophils/100 leukocytes 3 % 0-10 Automated blood basophils/100 leukocytes 0 % 0-10 Blood neutrophils automated count (number/volume) 4.9 10*3 1.8-7.8 Blood lymphocytes automated count (number/volume) 1.4 10*3 1.0-4.0 Blood monocytes automated count (number/volume) 0.7 10*3 0.0- 1.0 Automated eosinophil count 0.2 10*3/uL 0.0-0.3 Automated blood basophil count (count/volume) 0.0 10*3/uL 0.0-0.1 PT panel in platelet poor plasma by coagulation assay - 07/18/18 04:40 Prothrombin time (PT) in platelet poor plasma by coagulation assay 23.2 s 12.2-14.7 INR in platelet poor plasma or blood by coagulation assay 2.0 0.8-1.4 Comprehensive metabolic panel - 07/18/18 04:40 Serum or plasma sodium measurement (moles/volume) 139 mmol/L 135-145 Serum or plasma potassium measurement (moles/volume) 3.9 mmol/L 3.6-5.0 Serum or plasma chloride measurement (moles/volume) 107 mmol/L 98-107 Carbon dioxide 21 mmol/L 21-32 Serum or plasma anion gap determination (moles/volume) 11 mmol/L 5-14 Serum or plasma urea nitrogen measurement (mass/volume) 24 mg/dL 7-18 Serum or plasma creatinine measurement (mass/volume) 1.29 mg/dL 0.60-1.30 Serum or plasma urea nitrogen/creatinine mass ratio 19 NRG Serum or plasma creatinine measurement with calculation of estimated glomerular filtration rate 41 NRG Serum or plasma glucose measurement (mass/volume) 86 mg/dL 70-105 Serum or plasma calcium measurement (mass/volume) 9.0 mg/dL 8.5-10.1 Serum or plasma total bilirubin measurement (mass/volume) 0.4 mg/dL 0.1-1.0 Serum or plasma alkaline phosphatase measurement (enzymatic activity/volume) 70 U/L 40-136 Serum or plasma aspartate aminotransferase measurement (enzymatic activity/volume) 15 U/L 5-34 Serum or plasma alanine aminotransferase measurement (enzymatic activity/volume) 11 U/L 0-55 Serum or plasma protein measurement (mass/volume) 5.9 g/dL 6.4-8.2 Serum or plasma albumin measurement (mass/volume) 3.4 g/dL 3.2-4.5 CALCIUM CORRECTED 9.5 mg/dL 8.5-10.1 PT panel in platelet poor plasma by coagulation assay - 07/19/18 05:52 Prothrombin time (PT) in platelet poor plasma by coagulation assay 30.9 s 12.2-14.7 INR in platelet poor plasma or blood by coagulation assay 2.8 0.8-1.4 PT panel in platelet poor plasma by coagulation assay - 07/20/18 06:23 Prothrombin time (PT) in platelet poor plasma by coagulation assay 37.2 s 12.2-14.7 INR in platelet poor plasma or blood by coagulation assay 3.6 0.8-1.4 PT panel in platelet poor plasma by coagulation assay - 07/21/18 06:10 Prothrombin time (PT) in platelet poor plasma by coagulation assay 38.0 s 12.2-14.7 INR in platelet poor plasma or blood by coagulation assay 3.7 0.8-1.4 Complete blood count (CBC) with automated white blood cell (WBC) differential - 07/21/18 09:16 Blood leukocytes automated count (number/volume) 10.1 10*3/uL 4.3-11.0 Blood erythrocytes automated count (number/volume) 4.10 10*6/uL 4.35-5.85 Venous blood hemoglobin measurement (mass/volume) 11.5 g/dL 11.5-16.0 Blood hematocrit (volume fraction) 37 % 35-52 Automated erythrocyte mean corpuscular volume 89 [foz_us] 80-99 Automated erythrocyte mean corpuscular hemoglobin (mass per erythrocyte) 28 pg 25-34 Automated erythrocyte mean corpuscular hemoglobin concentration measurement (mass/volume) 31 g/dL 32-36 Automated erythrocyte distribution width ratio 16.0 % 10.0- 14.5 Automated blood platelet count (count/volume) 324 10*3/uL 130-400 Automated blood platelet mean volume measurement 10.3 [foz_us] 7.4-10.4 Automated blood neutrophils/100 leukocytes 86 % 42-75 Automated blood lymphocytes/100 leukocytes 9 % 12-44 Blood monocytes/100 leukocytes 4 % 0-12 Automated blood eosinophils/100 leukocytes 1 % 0-10 Automated blood basophils/100 leukocytes 0 % 0-10 Blood neutrophils automated count (number/volume) 8.6 10*3 1.8-7.8 Blood lymphocytes automated count (number/volume) 0.9 10*3 1.0-4.0 Blood monocytes automated count (number/volume) 0.4 10*3 0.0- 1.0 Automated eosinophil count 0.1 10*3/uL 0.0-0.3 Automated blood basophil count (count/volume) 0.0 10*3/uL 0.0-0.1 Comprehensive metabolic panel - 07/21/18 09:16 Serum or plasma sodium measurement (moles/volume) 142 mmol/L 135-145 Serum or plasma potassium measurement (moles/volume) 4.0 mmol/L 3.6-5.0 Serum or plasma chloride measurement (moles/volume) 107 mmol/L 98-107 Carbon dioxide 23 mmol/L 21-32 Serum or plasma anion gap determination (moles/volume) 12 mmol/L 5-14 Serum or plasma urea nitrogen measurement (mass/volume) 24 mg/dL 7-18 Serum or plasma creatinine measurement (mass/volume) 1.37 mg/dL 0.60-1.30 Serum or plasma urea nitrogen/creatinine mass ratio 18 NRG Serum or plasma creatinine measurement with calculation of estimated glomerular filtration rate 38 NRG Serum or plasma glucose measurement (mass/volume) 110 mg/dL 70-105 Serum or plasma calcium measurement (mass/volume) 9.4 mg/dL 8.5-10.1 Serum or plasma total bilirubin measurement (mass/volume) 0.4 mg/dL 0.1-1.0 Serum or plasma alkaline phosphatase measurement (enzymatic activity/volume) 72 U/L 40-136 Serum or plasma aspartate aminotransferase measurement (enzymatic activity/volume) 18 U/L 5-34 Serum or plasma alanine aminotransferase measurement (enzymatic activity/volume) 14 U/L 0-55 Serum or plasma protein measurement (mass/volume) 6.4 g/dL 6.4-8.2 Serum or plasma albumin measurement (mass/volume) 3.7 g/dL 3.2-4.5 CALCIUM CORRECTED 9.6 mg/dL 8.5-10.1 Automated blood complete blood count (hemogram) panel - 07/22/18 06:45 Blood leukocytes automated count (number/volume) 8.5 10*3/uL 4.3-11.0 Blood erythrocytes automated count (number/volume) 4.03 10*6/uL 4.35-5.85 Venous blood hemoglobin measurement (mass/volume) 11.3 g/dL 11.5-16.0 Blood hematocrit (volume fraction) 36 % 35-52 Automated erythrocyte mean corpuscular volume 90 [foz_us] 80-99 Automated erythrocyte mean corpuscular hemoglobin (mass per erythrocyte) 28 pg 25-34 Automated erythrocyte mean corpuscular hemoglobin concentration measurement (mass/volume) 31 g/dL 32-36 Automated erythrocyte distribution width ratio 15.6 % 10.0- 14.5 Automated blood platelet count (count/volume) 298 10*3/uL 130-400 Automated blood platelet mean volume measurement 10.4 [foz_us] 7.4-10.4 PT panel in platelet poor plasma by coagulation assay - 07/22/18 06:45 Prothrombin time (PT) in platelet poor plasma by coagulation assay 31.5 s 12.2-14.7 INR in platelet poor plasma or blood by coagulation assay 2.9 0.8-1.4 Comprehensive metabolic panel - 07/22/18 06:45 Serum or plasma sodium measurement (moles/volume) 141 mmol/L 135-145 Serum or plasma potassium measurement (moles/volume) 3.9 mmol/L 3.6-5.0 Serum or plasma chloride measurement (moles/volume) 107 mmol/L 98-107 Carbon dioxide 22 mmol/L 21-32 Serum or plasma anion gap determination (moles/volume) 12 mmol/L 5-14 Serum or plasma urea nitrogen measurement (mass/volume) 27 mg/dL 7-18 Serum or plasma creatinine measurement (mass/volume) 1.40 mg/dL 0.60-1.30 Serum or plasma urea nitrogen/creatinine mass ratio 19 NRG Serum or plasma creatinine measurement with calculation of estimated glomerular filtration rate 37 NRG Serum or plasma glucose measurement (mass/volume) 84 mg/dL 70-105 Serum or plasma calcium measurement (mass/volume) 9.0 mg/dL 8.5-10.1 Serum or plasma total bilirubin measurement (mass/volume) 0.4 mg/dL 0.1-1.0 Serum or plasma alkaline phosphatase measurement (enzymatic activity/volume) 70 U/L 40-136 Serum or plasma aspartate aminotransferase measurement (enzymatic activity/volume) 17 U/L 5-34 Serum or plasma alanine aminotransferase measurement (enzymatic activity/volume) 16 U/L 0-55 Serum or plasma protein measurement (mass/volume) 5.9 g/dL 6.4-8.2 Serum or plasma albumin measurement (mass/volume) 3.6 g/dL 3.2-4.5 CALCIUM CORRECTED 9.3 mg/dL 8.5-10.1 PT panel in platelet poor plasma by coagulation assay - 07/23/18 12:22 Prothrombin time (PT) in platelet poor plasma by coagulation assay 26.9 s 12.2-14.7 INR in platelet poor plasma or blood by coagulation assay 2.4 0.8-1.4 PT panel in platelet poor plasma by coagulation assay - 07/24/18 05:55 Prothrombin time (PT) in platelet poor plasma by coagulation assay 28.9 s 12.2-14.7 INR in platelet poor plasma or blood by coagulation assay 2.6 0.8-1.4 PT panel in platelet poor plasma by coagulation assay - 07/25/18 06:28 Prothrombin time (PT) in platelet poor plasma by coagulation assay 35.6 s 12.2-14.7 INR in platelet poor plasma or blood by coagulation assay 3.4 0.8-1.4 PT panel in platelet poor plasma by coagulation assay - 07/26/18 05:41 Prothrombin time (PT) in platelet poor plasma by coagulation assay 41.6 s 12.2-14.7 INR in platelet poor plasma or blood by coagulation assay 4.1 0.8-1.4 Complete blood count (CBC) with automated white blood cell (WBC) differential - 07/27/18 05:10 Blood leukocytes automated count (number/volume) 8.7 10*3/uL 4.3-11.0 Blood erythrocytes automated count (number/volume) 3.58 10*6/uL 4.35-5.85 Venous blood hemoglobin measurement (mass/volume) 10.1 g/dL 11.5-16.0 Blood hematocrit (volume fraction) 32 % 35-52 Automated erythrocyte mean corpuscular volume 90 [foz_us] 80-99 Automated erythrocyte mean corpuscular hemoglobin (mass per erythrocyte) 28 pg 25-34 Automated erythrocyte mean corpuscular hemoglobin concentration measurement (mass/volume) 32 g/dL 32-36 Automated erythrocyte distribution width ratio 15.7 % 10.0- 14.5 Automated blood platelet count (count/volume) 279 10*3/uL 130-400 Automated blood platelet mean volume measurement 10.3 [foz_us] 7.4-10.4 Automated blood neutrophils/100 leukocytes 63 % 42-75 Automated blood lymphocytes/100 leukocytes 26 % 12-44 Blood monocytes/100 leukocytes 9 % 0-12 Automated blood eosinophils/100 leukocytes 2 % 0-10 Automated blood basophils/100 leukocytes 0 % 0-10 Blood neutrophils automated count (number/volume) 5.4 10*3 1.8-7.8 Blood lymphocytes automated count (number/volume) 2.3 10*3 1.0-4.0 Blood monocytes automated count (number/volume) 0.8 10*3 0.0- 1.0 Automated eosinophil count 0.2 10*3/uL 0.0-0.3 Automated blood basophil count (count/volume) 0.0 10*3/uL 0.0-0.1 PT panel in platelet poor plasma by coagulation assay - 07/27/18 05:10 Prothrombin time (PT) in platelet poor plasma by coagulation assay 30.2 s 12.2-14.7 INR in platelet poor plasma or blood by coagulation assay 2.7 0.8-1.4 Comprehensive metabolic panel - 07/27/18 05:10 Serum or plasma sodium measurement (moles/volume) 141 mmol/L 135-145 Serum or plasma potassium measurement (moles/volume) 3.8 mmol/L 3.6-5.0 Serum or plasma chloride measurement (moles/volume) 109 mmol/L 98-107 Carbon dioxide 23 mmol/L 21-32 Serum or plasma anion gap determination (moles/volume) 9 mmol/L 5-14 Serum or plasma urea nitrogen measurement (mass/volume) 28 mg/dL 7-18 Serum or plasma creatinine measurement (mass/volume) 1.23 mg/dL 0.60-1.30 Serum or plasma urea nitrogen/creatinine mass ratio 23 NRG Serum or plasma creatinine measurement with calculation of estimated glomerular filtration rate 43 NRG Serum or plasma glucose measurement (mass/volume) 79 mg/dL 70-105 Serum or plasma calcium measurement (mass/volume) 8.9 mg/dL 8.5-10.1 Serum or plasma total bilirubin measurement (mass/volume) 0.4 mg/dL 0.1-1.0 Serum or plasma alkaline phosphatase measurement (enzymatic activity/volume) 60 U/L 40-136 Serum or plasma aspartate aminotransferase measurement (enzymatic activity/volume) 17 U/L 5-34 Serum or plasma alanine aminotransferase measurement (enzymatic activity/volume) 14 U/L 0-55 Serum or plasma protein measurement (mass/volume) 5.6 g/dL 6.4-8.2 Serum or plasma albumin measurement (mass/volume) 3.4 g/dL 3.2-4.5 CALCIUM CORRECTED 9.4 mg/dL 8.5-10.1 PT panel in platelet poor plasma by coagulation assay - 07/28/18 07:00 Prothrombin time (PT) in platelet poor plasma by coagulation assay 24.6 s 12.2-14.7 INR in platelet poor plasma or blood by coagulation assay 2.1 0.8-1.4 PT panel in platelet poor plasma by coagulation assay - 07/29/18 06:45 Prothrombin time (PT) in platelet poor plasma by coagulation assay 25.6 s 12.2-14.7 INR in platelet poor plasma or blood by coagulation assay 2.2 0.8-1.4 PT panel in platelet poor plasma by coagulation assay - 07/30/18 05:49 Prothrombin time (PT) in platelet poor plasma by coagulation assay 30.3 s 12.2-14.7 INR in platelet poor plasma or blood by coagulation assay 2.7 0.8-1.4 PT panel in platelet poor plasma by coagulation assay - 07/31/18 07:15 Prothrombin time (PT) in platelet poor plasma by coagulation assay 31.5 s 12.2-14.7 INR in platelet poor plasma or blood by coagulation assay 2.9 0.8-1.4 CMP - 08/13/18 10:23 GLUCOSE 86 mg/dL 65-99 UREA NITROGEN (BUN) 16 mg/dL 7-25 CREATININE 1.51 mg/dL 0.60-0.93 eGFR NON-AFR. [place] 34 mL/min/1.73m2 > OR=60 eGFR 40 mL/min/1.73m2 > OR=60 BUN/CREATININE RATIO 11 (calc) 6-22 SODIUM 138 mmol/L 135-146 POTASSIUM 3.9 mmol/L 3.5-5.3 CHLORIDE 105 mmol/L 98-110 CARBON DIOXIDE 20 mmol/L 20-32 CALCIUM 8.9 mg/dL 8.6-10.4 PROTEIN, TOTAL 6.1 g/dL 6.1-8.1 ALBUMIN 3.7 g/dL 3.6-5.1 GLOBULIN 2.4 g/dL (calc) 1.9-3.7 ALBUMIN/GLOBULIN RATIO 1.5 (calc) 1.0-2.5 BILIRUBIN, TOTAL 0.6 mg/dL 0.2-1.2 ALKALINE PHOSPHATASE 79 U/L 33-130 AST 12 U/L 10-35 ALT 11 U/L 6-29 CBC - 08/13/18 10:23 WHITE BLOOD CELL COUNT 11.6 Thousand/uL 3.8-10.8 RED BLOOD CELL COUNT 4.29 Million/uL 3.80-5.10 HEMOGLOBIN 12.1 g/dL 11.7-15.5 HEMATOCRIT 38.0 % 35.0-45.0 MCV 88.6 fL 80.0-100.0 MCH 28.2 pg 27.0-33.0 MCHC 31.8 g/dL 32.0-36.0 RDW 14.3 % 11.0-15.0 PLATELET COUNT 305 Thousand/uL 140-400 MPV 10.7 fL 7.5-12.5 ABSOLUTE NEUTROPHILS 9025 cells/uL 8616-1091 ABSOLUTE LYMPHOCYTES 1485 cells/uL 850-3900 ABSOLUTE MONOCYTES 754 cells/uL 200-950 ABSOLUTE EOSINOPHILS 278 cells/uL 15-500 ABSOLUTE BASOPHILS 58 cells/uL 0-200 NEUTROPHILS 77.8 % NRG LYMPHOCYTES 12.8 % NRG MONOCYTES 6.5 % NRG EOSINOPHILS 2.4 % NRG BASOPHILS 0.5 % NRG TSH - 08/13/18 10:23 TSH 3.82 mIU/L 0.40-4.50 Encounters ACCT No. Visit Date/Time Discharge Status Pt. Type Provider Facility Loc./Unit Complaint [id number] 10/30/2018 19:15:00 ACT Outpatient CHRISTA GLORIA APRN [facility] [id number] 08/13/2018 09:40:00 Document Registration [id number] 01/30/2018 10:40:00 Document Registration [id number] 06/25/2017 18:40:00 Document Registration [id number] 12/20/2016 10:40:00 Document Registration [id number] 06/27/2014 11:17:00 06/27/2014 23:59:59 CLS Outpatient CHRISTA GLORIA APRN [id number] 05/04/2014 12:42:00 05/04/2014 23:59:59 CLS Outpatient COLLEEN WAYNE APRN [facility] [id number] 04/08/2014 16:11:00 04/08/2014 23:59:59 CLS Outpatient CHRISTA GLORIA APRN [id number] 12/08/2013 11:03:00 12/08/2013 23:59:59 CLS Outpatient CHRISTA GLORIA APRN [id number] 09/28/2013 10:06:00 09/28/2013 23:59:59 CLS Outpatient ONEYDA RUIZ APRN [id number] 09/13/2013 12:07:00 09/13/2013 23:59:59 CLS Outpatient COLLEEN WAYNE APRN [place] [id number] 2013 13:19:00 2013 23:59:59 CLS Outpatient LINDA DO LUANNE [place] [id number] 06/21/2013 16:02:00 06/21/2013 23:59:59 CLS Outpatient LINDA DO LUANNE [place] [id number] 05/05/2013 10:48:00 05/05/2013 23:59:59 CLS Outpatient LINDA DO LUANNE [place] [id number] 05/05/2013 10:48:00 05/05/2013 23:59:59 CLS Outpatient LINDA DO LUANNE [place] [id number] 04/19/2013 09:39:00 04/19/2013 23:59:59 CLS Outpatient LINDA DO LUANNE [place] [id number] 03/11/2013 14:00:00 03/11/2013 23:59:59 CLS Outpatient PERRI WAYNE APRNSADIE Whaley [id number] 02/24/2013 15:28:00 02/24/2013 23:59:59 CLS Outpatient LINDA DO LUANNE [place] [id number] 02/22/2013 11:28:00 02/22/2013 23:59:59 CLS Outpatient LINDA DO LUANNE [place] [id number] 02/22/2013 11:28:00 02/22/2013 23:59:59 CLS Outpatient LINDA DO LUANNE [place] [id number] 02/11/2013 16:04:00 02/11/2013 23:59:59 CLS Outpatient HERNAN CRUZ MD [id number] 01/22/2013 08:45:00 01/22/2013 23:59:59 CLS Outpatient LUANNE LINDA DO [id number] 11/24/2012 08:59:00 11/24/2012 23:59:59 CLS Outpatient LUANNE LINDA DO [id number] 05/12/2012 08:25:00 05/12/2012 23:59:59 CLS Outpatient LUANNE LINDA DO [id number] 04/13/2012 09:56:00 04/13/2012 23:59:59 CLS Outpatient LUANNE LINDA DO [id number] 04/01/2012 12:14:00 04/01/2012 23:59:59 CLS Outpatient [id number] 01/17/2012 10:03:00 01/17/2012 23:59:59 CLS Outpatient LUANNE LINDA DO [id number] 01/17/2012 10:03:00 01/17/2012 23:59:59 CLS Outpatient [id number] 11/16/2012 14:32:00 Document Registration [id number] 10/19/2012 11:25:00 Document Registration [id number] 09/21/2012 13:09:00 Document Registration [id number] 08/10/2012 09:38:00 Document Registration [id number] 07/14/2012 15:04:00 Document Registration [id number] 07/07/2012 14:09:00 Document Registration [id number] 08/11/2018 12:00:00 08/11/2018 23:59:59 CLS Preadmit MARIA DOLORES CRYSTAL FACC, DIMITRI FACNadia CCDS [facility] CATH CVA,CAD,HTN,HILARIO [id number] 07/21/2018 11:00:00 07/31/2018 12:00:00 DIS Inpatient SERINA DEL REAL DO [facility] IRF CVA [id number] 07/15/2018 14:10:00 07/21/2018 10:45:00 DIS Inpatient HERNAN CRUZ MD [facility] 4TH SUBACUTE CVA/UTI [id number] 05/10/2018 08:45:00 05/10/2018 23:59:59 CLS Outpatient HENRY ROSE MD [facility] RAD POSSIBLE DVT [id number] 05/09/2018 18:24:00 05/09/2018 23:00:00 DIS Emergency MICKEY KENNEDY [facility] ER VOMITING/L LEG PAIN [id number] 02/12/2018 00:40:00 02/12/2018 02:35:00 DIS Emergency REBECCA KEITH [facility] ER BLOOD IN URINE [id number] 12/19/2017 08:03:00 12/19/2017 12:27:00 DIS Emergency HARESH CRYSTAL, GUSTAVO Lagos [facility] ER ABD PAIN [id number] 09/11/2017 10:45:00 09/11/2017 23:59:59 CLS Outpatient DEJA ZHONG APRN [facility] RAD ASYMPTOMIC MENOPAUSAL STATE [id number] 08/07/2017 13:34:00 08/07/2017 17:01:00 DIS Emergency 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 CP, [id number] 05/24/2016 11:42:00 05/24/2016 17:03:00 DIS Emergency GAGAN CRYSTAL, SERGIO S [facility] ER RIGHT SIDE LOWER ABD PAIN/NAUSEA [id number] 03/18/2016 12:32:00 03/18/2016 13:47:00 DIS Emergency MILTON CRYSTAL, HENRY Rodgers [facility] ER RIGHT LEG PAIN [id number] 12/29/2014 10:02:00 12/29/2014 23:59:59 CLS Preadmit EDDIE GLORIA APRN [facility] REHAB [id number] 06/30/2013 07:15:00 06/30/2013 23:59:59 CLS Outpatient KASIA CHRISTOPHER MD [facility] PREOP SCREENING [id number] 12/02/2012 11:53:00 12/02/2012 23:59:59 CLS Outpatient KASIA CHRISTOPHER MD [facility] PREOP SCREENING [id number] 11/06/2012 21:56:00 11/07/2012 06:50:00 DIS Outpatient LUANNE LINDA DO [facility] SLEEP SNORING [id number] 11/11/2018 09:42:00 PEN Preadmit CHRISTA GLORIA [facility] REHAB S/P CVA [id number] 10/30/2018 20:04:00 ACT Emergency KEY MERCADO MD [facility] ER R FOOT PAIN [id number] 12/23/2014 10:01:00 Document Registration [id number] 12/23/2014 10:01:00 Document Registration [id number] 05/06/2012 07:51:00 Document Registration [id number] 04/22/2012 09:16:00 Document Registration [id number] 02/24/2012 10:26:00 Document Registration
[2018-10-30 21:26] LABS: BASOPHILS % (AUTO) 0 % (0-10); EOSINOPHILS # (AUTO) 0.1 10^3/uL (0.0-0.3); EOSINOPHILS % (AUTO) 1 % (0-10); HEMATOCRIT 38 % (35-52); HEMOGLOBIN 12.1 G/DL (11.5-16.0); LYMPHOCYTES % (AUTO) 23 % (12-44); MEAN CORPUSCULAR HEMOGLOBIN 29 PG (25-34); MEAN CORPUSCULAR HGB CONC 32 G/DL (32-36); MEAN CORPUSCULAR VOLUME 90 FL (80-99); MEAN PLATELET VOLUME 11.2 FL (7.4-10.4); MONOCYTES # (AUTO) 0.7 X 10^3 (0.0-1.0); MONOCYTES % (AUTO) 8 % (0-12); NEUTROPHILS # (AUTO) 6.1 X 10^3 (1.8-7.8); NEUTROPHILS % (AUTO) 68 % (42-75); PLATELET COUNT 253 10^3/uL (130-400); RED CELL DISTRIBUTION WIDTH 14.8 % (10.0-14.5); WHITE BLOOD COUNT 8.9 10^3/uL (4.3-11.0)
[2018-10-30 21:45] LABS: ALBUMIN 3.7 GM/DL (3.2-4.5); BILIRUBIN,TOTAL 0.4 MG/DL (0.1-1.0); CALCIUM 9.3 MG/DL (8.5-10.1); CREATININE SERUM 1.83 MG/DL (0.60-1.30); TOTAL PROTEIN 6.5 GM/DL (6.4-8.2)
[2018-10-30] MEDS ORDERED: NS IV 1000 ML 1,000 ML IV ONE (22:13)
[2018-10-30] MEDS ORDERED: CLINDAMYCIN 600 MG/50 ML IVPB 50 ML IV ONE (22:15)
--- NOTE | 2018-10-30 22:20 | Diagnostic Imaging Report ---
INDICATION: Pain and redness of the right second toe. COMPARISON: None FINDINGS: 3 radiographic views of the right foot were obtained. Postsurgical changes of the right ankle are noted. There is no radiographic evidence of acute fracture or dislocation of the right foot. Joint spaces of the right foot are maintained. Advanced osteoarthritic changes of the tibiotalar joint space are also noted. Osseous structures of the foot are intact. No definite acute fracture is seen. No unexpected radiopaque foreign bodies are identified. IMPRESSION: 1. No evidence of acute fracture or dislocation of the right foot. 2. Postsurgical changes of the right ankle with advanced degenerative changes at the tibiotalar joint space. Dictated by: Dictated on workstation # [id number]
[2018-10-30] MEDS ORDERED: CLIN300C3 PO (22:58)
[2018-10-30 23:00] VITALS: BP 145/58
== END 2018-10-30 23:06 | disposition home or self-care (01) ==
LOC: EDUNIT# 20:03 → ER 20:04
DX: L03.031 Cellulitis of right toe (principal); I73.9 Peripheral vascular disease, unspecified; I12.9 Hypertensive chronic kidney disease with stage 1 through stage 4 chronic kidney disease, or unspecified chronic kidney disease; N18.9 Chronic kidney disease, unspecified; E78.00 Pure hypercholesterolemia, unspecified; I25.10 Atherosclerotic heart disease of native coronary artery without angina pectoris; G62.9 Polyneuropathy, unspecified; M32.9 Systemic lupus erythematosus, unspecified; F41.9 Anxiety disorder, unspecified; F32.9 Major depressive disorder, single episode, unspecified; F17.210 Nicotine dependence, cigarettes, uncomplicated; Z85.41 Personal history of malignant neoplasm of cervix uteri; Z85.44 Personal history of malignant neoplasm of other female genital organs; Z86.73 Personal history of transient ischemic attack (TIA), and cerebral infarction without residual deficits; Z87.01 Personal history of pneumonia (recurrent); Z90.710 Acquired absence of both cervix and uterus; Z90.89 Acquired absence of other organs; Z79.82 Long term (current) use of aspirin
CPT/HCPCS: 36415; 73630; 80053; 85025; 86141

== ENCOUNTER 2018-12-21 09:49 | Observation (INO) | payer MEDICARE ==
[~2018-12-21] VITALS: Ht 152.4 cm; Wt 81.2 kg
[~2018-12-21 09:49] MED LIST changes: +APIX5TAB PO; +CLIN300C3 PO; +VILA20TA PO
[2018-12-21] MEDS ORDERED: oxyCODONE/APAP 5/325MG (PERCOCET 5) TABLET PO ONE (10:30)
[2018-12-21 10:59] LABS: BASOPHILS % (AUTO) 0 % (0-10); EOSINOPHILS # (AUTO) 0.2 10^3/uL (0.0-0.3); EOSINOPHILS % (AUTO) 2 % (0-10); HEMATOCRIT 40 % (35-52); HEMOGLOBIN 12.6 G/DL (11.5-16.0); LYMPHOCYTES # (AUTO) 0.9 X 10^3 (1.0-4.0); LYMPHOCYTES % (AUTO) 7 % (12-44); MEAN CORPUSCULAR HEMOGLOBIN 28 PG (25-34); MEAN CORPUSCULAR HGB CONC 32 G/DL (32-36); MEAN CORPUSCULAR VOLUME 88 FL (80-99); MEAN PLATELET VOLUME 11.3 FL (7.4-10.4); MONOCYTES # (AUTO) 1.2 X 10^3 (0.0-1.0); MONOCYTES % (AUTO) 10 % (0-12); NEUTROPHILS % (AUTO) 81 % (42-75); PLATELET COUNT 300 10^3/uL (130-400); RED CELL DISTRIBUTION WIDTH 15.1 % (10.0-14.5); WHITE BLOOD COUNT 12.4 10^3/uL (4.3-11.0)
[2018-12-21 11:20] LABS: ALBUMIN 3.6 GM/DL (3.2-4.5); CALCIUM 9.4 MG/DL (8.5-10.1); CREATININE SERUM 1.65 MG/DL (0.60-1.30); TOTAL PROTEIN 7.5 GM/DL (6.4-8.2); URIC ACID 8.2 MG/DL (2.6-7.2)
[2018-12-21 11:46] LABS: BAND NEUTROPHILS 0 %; BASOPHILS % (MANUAL) 0 %; EOSINOPHILS % (MANUAL) 1 %; LYMPHOCYTES % (MANUAL) 7 %; MONOCYTES % (MANUAL) 3 %; NEUTROPHILS % (MANUAL) 89 %; RBC MORPH NORMAL
--- NOTE | 2018-12-21 12:08 | Diagnostic Imaging Report ---
PATIENT HISTORY: Right shoulder pain.. TECHNIQUE: 3 views of the right shoulder COMPARISON: 12/02/2007 FINDINGS: There are moderate degenerative changes in the right glenohumeral joint. There is superior migration of the humeral head suggestive of chronic rotator cuff injury. There are mild degenerative changes in the right acromioclavicular joint. No acute fracture is seen. IMPRESSION: Moderate degenerative changes in the right shoulder with no acute fracture seen. Likely chronic right rotator cuff injury. Dictated by: Dictated on workstation # [id number]
--- NOTE | 2018-12-21 12:10 | Diagnostic Imaging Report ---
PATIENT HISTORY: Gangrene in the bilateral toes. TECHNIQUE: 2 frontal views of the bilateral feet. Oblique and lateral views of the bilateral toes. COMPARISON: Foot radiograph from 10/30/2018 FINDINGS: No acute fracture or dislocation is seen in the toes bilaterally. There is subtle cortical irregularity at the distal phalangeal tuft of the right second toe. No other areas of cortical erosion are appreciated. No acute fracture is seen. There are posttraumatic changes of the right ankle with prior fixation. There are severe degenerative changes in the bilateral ankles. IMPRESSION: 1. Mild cortical irregularity at the right second toe distal phalanx, concerning for osteomyelitis. Dictated by: Dictated on workstation # [id number]
[2018-12-21] MEDS ORDERED: NS IV 1000 ML 1,000 ML IV ONE (12:34)
[2018-12-21] MEDS ORDERED: PIPERACILLIN/TAZOBACTAM (BULK) 4.5 GM in NS (IVPB) 100 ML IV ONE (12:45)
--- NOTE | 2018-12-21 12:56 | NUR ---
WILL WAIT FOR 2ND BLOOD CULTURE TO BE DRAWN BEFORE MEDS HUNG.
[2018-12-21] MEDS ORDERED: COLCHICINE 0.6 MG (COLCRYS) TABLET PO ONE (13:00)
--- NOTE | 2018-12-21 13:11 | ED General ---
General Chief Complaint: Upper Extremity Stated Complaint: R SHOULDER PAIN Nursing Triage Note: TO ED PER W/C C/O R SHOULDER PAIN WHEN WAKING UP THIS AM NO INJURY. NO BRUSING. Nursing Sepsis Screen: No Definite Risk Source of Information: Patient, Old Records Exam Limitations: No Limitations History of Present Illness Date Seen by Provider: Dec 21, 2018 Time Seen by Provider: 10:08 Initial Comments This 73-year-old woman presents to the emergency room with initial complaint of right shoulder pain. She woke with the pain this morning. It is very painful with any range of motion and with outpatient over the deltoid muscle region. She cannot think of any way in which she injured it. Patient also mentions that she has gangrene of the toes and has a follow-up appointment with Dr. May gleason for this today. On examination of her feet, she has an eschar appearing distal right second toe with a small amount of purulent drainage. She is also found to have a very mild fever of 100.4. Further evaluation for sepsis was felt necessary based on these findings. Patient also reports she is on Eliquis due to a history of aortic thrombus. She goes to [facility] for her primary care. Allergies and Home Medications Allergies Coded Allergies: No Known Drug Allergies (Verified , 10/21/08) Home Medications Allopurinol 100 Mg Tablet, 100 MG PO DAILY, (Reported) Aspirin 81 Mg Tab.chew, 81 MG PO DAILY Prescribed by: SERINA DEL REAL on 07/31/18858 Clindamycin HCl 300 Mg Capsule, 300 MG PO QID Prescribed by: ALDEN RODRIGUEZ on 10/30/18 9061 Diphenoxylate HCl/Atropine 1 Each Tablet, 1 TAB PO Q6H PRN for DIARRHEA, (Reported) Fluoxetine HCl 40 Mg Capsule, 40 MG PO DAILY, (Reported) Hydrocodone/Acetaminophen 1 Each Tablet, 1 TAB PO TID PRN for PAIN-MODERATE, (Reported) Hydroxychloroquine Sulfate 200 Mg Tablet, 400 MG PO DAILY, (Reported) TAKES 2 (200MG) TABLETS Metoprolol Succinate 50 Mg Tab.er.24h, 50 MG PO DAILY Prescribed by: SERINA DEL REAL on 07/31/1871 Ondansetron HCl 4 Mg Tablet, 4 MG PO Q6H PRN for NAUSEA/VOMITING-1ST LINE, (Reported) Prednisone 10 Mg Tab, 10 MG PO DAILY, (Reported) Patient Home Medication List Home Medication List Reviewed: Yes Review of Systems Review of Systems Constitutional: see HPI EENTM: no symptoms reported Respiratory: no symptoms reported Cardiovascular: no symptoms reported Gastrointestinal: no symptoms reported Genitourinary: no symptoms reported : No Musculoskeletal: see HPI Skin: see HPI Psychiatric/Neurological: No Symptoms Reported Hematologic/Lymphatic: No Symptoms Reported Past Yckuqoo-Dipovc-Emkbhn Hx Past Med/Social Hx: Reviewed and Corrections made Patient Social History Alcohol Use: Denies Use Recreational Drug Use: No Smoking Status: Current Everyday Smoker Type Used: Cigarettes 2nd Hand Smoke Exposure: Yes Recent Foreign Travel: No Contact w/Someone Who Travel: No Recent Infectious Disease Expo: No Recent Hopitalizations: No (CVA 4-19) Immunizations Up To Date PED Vaccines UTD: No Date of Pneumonia Vaccine: Dec 22, 2008 Date of Influenza Vaccine: Dec 23, 2011 Seasonal Allergies Seasonal Allergies: No Past Medical History Surgeries: Yes Abdominal, Adenoidectomy, Cardiac, Gallbladder, Hysterectomy, Oophorectomy, Orthopedic, Tonsillectomy Respiratory: Yes Pneumonia Currently Using CPAP: No Currently Using BIPAP: No Cardiac: Yes (history of aortic thrombus) Coronary Artery Disease, High Cholesterol, Hypertension, Peripheral Vascular (history of renal infarct) Neurological: Yes Neuropathy, Stroke 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 Disorders: Yes (HX OF VULVAR CA--MODIFIED RADICAL VULVECTOMY 1991) 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, 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 Sexually Transmitted Disease: No HIV/AIDS: No Genitourinary: Yes (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 Physical Exam Vital Signs Vital Signs - First Documented 12/21/18 09:57 Temp 38.0 Pulse 76 Resp 18 B/P (MAP) 155/76 (102) Pulse Ox 96 O2 Delivery Room Air Capillary Refill : Less Than 3 Seconds Height, Weight, BMI Height: 5'0.00" Weight: 161lbs. 0oz. 73.109690me; 23.00 BMI Method:Stated General Appearance: No Apparent Distress, WD/WN, Thin HEENT: PERRL/EOMI, Normal ENT Inspection, Other (mucous membranes somewhat dry) Neck: Normal Inspection Respiratory: Lungs Clear, Normal Breath Sounds, No Accessory Muscle Use, No Respiratory Distress Cardiovascular: Regular Rate, Rhythm, No Edema, No Murmur, Normal Peripheral Pulses (Strong posterior tibial pedal pulses. Dorsal pedal pulses not palpable) Gastrointestinal: Normal Bowel Sounds, Non Tender, Soft Extremity: Normal Inspection, Other (right shoulder tender to palpation over the deltoid muscle region. Extremely limited range of motion secondary to pain. 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 as Tested Skin: Normal Color, Warm/Dry Focused Exam Lactate Level 12/21/18 13:01: Lactic Acid Level 1.51 Lactic Acid Level Laboratory Tests Test 12/21/18 13:01 Lactic Acid Level 1.51 MMOL/L (0.50-2.00) Progress/Results/Core Measures Suspected Sepsis Recent Fever Within 48 Hours: No Infection Criteria Present: None New/Unexplained Altered Menta: No Sepsis Screen: No Definite Risk SIRS Temperature: Pulse: 76 Respiratory Rate: 18 Laboratory Tests 12/21/18 10:40: White Blood Count 12.4H Blood Pressure 155 /76 Mean: 102 12/21/18 13:01: Lactic Acid Level 1.51 Laboratory Tests 12/21/18 10:40: Creatinine 1.65H, Platelet Count 300, Total Bilirubin 1.0 12/21/18 13:01: INR Comment 1.9H Results/Orders Lab Results Laboratory Tests Test 12/21/18 10:40 12/21/18 13:01 12/21/18 13:21 Range/Units White Blood Count 12.4 H 4.3-11.0 10^3/uL Red Blood Count 4.50 4.35-5.85 10^6/uL Hemoglobin 12.6 11.5-16.0 G/DL Hematocrit 40 35-52 % Mean Corpuscular Volume 88 80-99 FL Mean Corpuscular Hemoglobin 28 25-34 PG Mean Corpuscular Hemoglobin Concent 32 32-36 G/DL Red Cell Distribution Width 15.1 H 10.0-14.5 % Platelet Count 300 130-400 10^3/uL Mean Platelet Volume 11.3 H 7.4-10.4 FL Neutrophils (%) (Auto) 81 H 42-75 % Lymphocytes (%) (Auto) 7 L 12-44 % Monocytes (%) (Auto) 10 0-12 % Eosinophils (%) (Auto) 2 0-10 % Basophils (%) (Auto) 0 0-10 % Neutrophils # (Auto) 10.0 H 1.8-7.8 X 10^3 Lymphocytes # (Auto) 0.9 L 1.0-4.0 X 10^3 Monocytes # (Auto) 1.2 H 0.0-1.0 X 10^3 Eosinophils # (Auto) 0.2 0.0-0.3 10^3/uL Basophils # (Auto) 0.0 0.0-0.1 10^3/uL Neutrophils % (Manual) 89 % Lymphocytes % (Manual) 7 % Monocytes % (Manual) 3 % Eosinophils % (Manual) 1 % Basophils % (Manual) 0 % Band Neutrophils 0 % Blood Morphology Comment NORMAL Sodium Level 139 135-145 MMOL/L Potassium Level 4.0 3.6-5.0 MMOL/L Chloride Level 105 98-107 MMOL/L Carbon Dioxide Level 22 21-32 MMOL/L Anion Gap 12 5-14 MMOL/L Blood Urea Nitrogen 14 7-18 MG/DL Creatinine 1.65 H 0.60-1.30 MG/DL Estimat Glomerular Filtration Rate 31 BUN/Creatinine Ratio 8 Glucose Level 102 70-105 MG/DL Uric Acid 8.2 H 2.6-7.2 MG/DL Calcium Level 9.4 8.5-10.1 MG/DL Corrected Calcium 9.7 8.5-10.1 MG/DL Total Bilirubin 1.0 0.1-1.0 MG/DL Aspartate Amino Transf (AST/SGOT) 19 5-34 U/L Alanine Aminotransferase (ALT/SGPT) 11 0-55 U/L Alkaline Phosphatase 89 40-136 U/L C-Reactive Protein High Sensitivity 2.16 H 0.00-0.50 MG/DL Total Protein 7.5 6.4-8.2 GM/DL Albumin 3.6 3.2-4.5 GM/DL Prothrombin Time 22.4 H 12.2-14.7 SEC INR Comment 1.9 H 0.8-1.4 Activated Partial Thromboplast Time 35 24-35 SEC Lactic Acid Level 1.51 0.50-2.00 MMOL/L Urine Color YELLOW Urine Clarity CLEAR Urine pH 5 5-9 Urine Specific [place] 1.025 H 1.016-1.022 Urine Protein 2+ H NEGATIVE Urine Glucose (UA) NEGATIVE NEGATIVE Urine Ketones 1+ H NEGATIVE Urine Nitrite POSITIVE H NEGATIVE Urine Bilirubin NEGATIVE NEGATIVE Urine Urobilinogen 1 NORMAL MG/DL Urine Leukocyte Esterase 3+ H NEGATIVE Urine RBC (Auto) 2+ H NEGATIVE Urine RBC 2-5 H /HPF Urine WBC TNTC H /HPF Urine Squamous Epithelial Cells NONE /HPF Urine Crystals NONE /LPF Urine Bacteria LARGE H /HPF Urine Casts NONE /LPF Urine Mucus NEGATIVE /LPF Urine Culture Indicated YES My Orders Orders - HENRY ROSE MD Oxycodone/Apap 5/325mg Tablet (Percocet (12/21/18 10:30) Cbc With Automated Diff (12/21/18 10:22) Comprehensive Metabolic Panel (12/21/18 10:22) Hs C Reactive Protein (12/21/18 10:22) Ed Iv/Invasive Line Start (12/21/18 10:22) Uric Acid (12/21/18 10:22) Toe(S) (12/21/18 10:22) Wound Culture (12/21/18 10:22) Shoulder, Right, 3 Views (12/21/18 10:50) Manual Differential (12/21/18 10:40) Ns Iv 1000 Ml (Sodium Chloride 0.9%) (12/21/18 12:34) Blood Culture (12/21/18 12:38) Lactic Acid Analyzer (12/21/18 12:38) Piperacillin/Tazobactam (Bulk) (Zosyn In (12/21/18 12:45) Sputum Culture (12/21/18 12:41) Urinalysis (12/21/18 12:41) Urine Culture (12/21/18 12:41) Protime With Inr (12/21/18 12:41) Partial Thromboplastin Time (12/21/18 12:41) Chest 1 View, Ap/Pa Only (12/21/18 12:41) Vital Signs Adult Sepsis Patie Q15M (12/21/18 12:41) O2 (12/21/18 12:41) Remove Rings In Anticipation O (12/21/18 12:41) Colchicine Tablet (Colcrys Tablet) (12/21/18 13:00) Vancomycin Injection (Vancomycin Injecti (12/21/18 13:45) Medications Given in ED Current Medications Medications Dose Ordered Sig/Kenneth Route Start Time Stop Time Status Last Admin Dose Admin Colchicine 1.2 mg ONCE ONCE PO 12/21/18 13:00 12/21/18 13:01 DC 12/21/18 13:12 1.2 MG Oxycodone/ Acetaminophen 1 tab ONCE ONCE PO 12/21/18 10:30 12/21/18 10:31 DC 12/21/18 10:31 1 TAB Piperacillin Sod/ Tazobactam Sod 4.5 gm/Sodium Chloride 120 ml @ 240 mls/hr ONCE ONCE IV 12/21/18 12:45 12/21/18 13:14 DC 12/21/18 13:07 240 MLS/HR Sodium Chloride 1,000 ml @ 0 mls/hr Q0M ONCE IV 12/21/18 12:34 12/21/18 12:36 DC 12/21/18 13:06 1,000 MLS/HR Vancomycin HCl 1000 mg/Sodium Chloride 250 ml @ 250 mls/hr ONCE ONCE IV 12/21/18 13:45 12/21/18 14:28 DC 12/21/18 14:13 250 MLS/HR Vital Signs/I&O 12/21/18 12/21/18 12/21/18 12/21/18 09:57 13:59 14:36 14:36 Temp 38.0 37.0 37.0 Pulse 76 54 53 53 Resp 18 18 18 18 B/P (MAP) 155/76 (102) 144/77 140/66 (90) 140/66 Pulse Ox 96 95 100 100 O2 Delivery Room Air Room Air Room Air Room Air Capillary Refill : Less Than 3 Seconds Blood Pressure Mean: 102 Progress Note : Progress Note X-ray of the right shoulder showed chronic changes with no acute injury. Patient was screened for gouty flare with a uric acid level. This did return elevated. A dose of colchicine was administered. Concern for septic presentation was of greater concern. Patient had mild leukocytosis and mild fever in the context of infection. The right second toe was cultured. X-rays were obtained and suggested osteomyelitis. Patient was treated with Zosyn and vancomycin after blood cultures were obtained. Had a conversation with Karlie on Dr. Olvera staff. Patient was to be obtaining a CT angiogram of the lower extremities for Dr. Cotter. This cannot be performed today due to patient's creatinine level. Case was discussed with Dr. Steve and Dr. Maguire who are agreeable to admission for treatment of sepsis and osteomyelitis. Dr. Maguire anticipates surgery tomorrow for possible amputation. Patient received a liter of IV fluid while in the ER. Urinary tract infection was identified after the time of admission. Diagnostic Imaging Diagonstic Imaging: Xray Plain Films/CT/US/NM/MRI: other (bilateral feet) Comments X-rays of the fever you by me and reports reviewed. See report below: NAME: EUGENIO PARKER [facility] REC#: [id number] PT STATUS: REG ER : 1945 PHYSICIAN: HENRY ROSE MD ADMIT DATE: 12/21/18/ER Draft Date of Exam:12/21/18 TOE(S) PATIENT HISTORY: Gangrene in the bilateral toes. TECHNIQUE: 2 frontal views of the bilateral feet. Oblique and lateral views of the bilateral toes. COMPARISON: Foot radiograph from 10/30/2018 FINDINGS: No acute fracture or dislocation is seen in the toes bilaterally. There is subtle cortical irregularity at the distal phalangeal tuft of the right second toe. No other areas of cortical erosion are appreciated. No acute fracture is seen. There are posttraumatic changes of the right ankle with prior fixation. There are severe degenerative changes in the bilateral ankles. IMPRESSION: 1. Mild cortical irregularity at the right second toe distal phalanx, concerning for osteomyelitis. Dictated on workstation # [id number] Dict: 12/21/18 1204 Trans: 12/21/18 1209 [facility] [id number] Interpreted by: JEANNETTE GALLEGOS MD Diagonstic Imaging: Xray Plain Films/CT/US/NM/MRI: chest Comments Chest x-ray viewed by me and report reviewed. See report below: NAME: EUGENIO PARKER [facility] REC#: [id number] PT STATUS: ADM IN : 1945 PHYSICIAN: HENRY ROSE MD ADMIT DATE: 12/21/18/4TH Signed Date of Exam:12/21/18 CHEST 1 VIEW, AP/PA ONLY Patient History: Shoulder pain. Technique: Single frontal view of the chest Comparison: 07/15/2018 FINDINGS: The lung volumes are normal. No focal consolidation is seen. No large pleural effusion or pneumothorax is seen. The cardiomediastinal silhouette is enlarged. There is calcified aortic atherosclerotic plaque. No acute osseous abnormality is seen. Degenerative changes are noted in the right shoulder. IMPRESSION: 1. No acute pleuroparenchymal process. 2. Cardiomegaly. Dictated by: Dictated on workstation # [id number] Dict: 12/21/18 1359 Trans: 12/21/18 1428 CVB [id number] Interpreted by: DEYSI ALEXANDER DO Electronically signed by: DEYSI ALEXANDER DO 12/21/18 1428 Diagonstic Imaging: Xray Plain Films/CT/US/NM/MRI: other (right shoulder x-ray) Comments Right shoulder x-ray viewed by me and report reviewed. See report below: NAME: EUGENIO PARKER [facility] REC#: [id number] PT STATUS: REG ER : 1945 PHYSICIAN: HENRY ROSE MD ADMIT DATE: 12/21/18/ER Draft Date of Exam:12/21/18 SHOULDER, RIGHT, 3 VIEWS PATIENT HISTORY: Right shoulder pain.. TECHNIQUE: 3 views of the right shoulder COMPARISON: 12/02/2007 FINDINGS: There are moderate degenerative changes in the right glenohumeral joint. There is superior migration of the humeral head suggestive of chronic rotator cuff injury. There are mild degenerative changes in the right acromioclavicular joint. No acute fracture is seen. IMPRESSION: Moderate degenerative changes in the right shoulder with no acute fracture seen. Likely chronic right rotator cuff injury. Dictated on workstation # [id number] Dict: 12/21/18 1203 Trans: 12/21/18 1208 [facility] [id number] Interpreted by: JEANNETTE GALLEGOS MD Departure Communication (Admissions) Time/Spoke to Admitting Phy: 12:53 Dr. Steve Time/Spoke to Consulting Phy: 13:30 Dr. Maguire Impression Primary Impression: Sepsis Qualified Codes: A41.9 - Sepsis, unspecified organism Additional Impressions: Osteomyelitis of toe Gout Qualified Codes: M1A.9XX0 - Chronic gout, unspecified, without tophus (tophi) Acute renal failure Qualified Codes: N17.9 - Acute kidney failure, unspecified Right shoulder pain Qualified Codes: M25.511 - Pain in right shoulder UTI (urinary tract infection) Qualified Codes: N39.0 - Urinary tract infection, site not specified Disposition: ADMITTED INPATIENT Condition: Improved Admissions Decision to Admit Reason: Admit from ER (General) Decision to Admit/Date: Dec 21, 2018 Time/Decision to Admit Time: 12:40 Departure-Patient Inst. Referrals: [facility] (PCP) Primary Care Physician CHRISTA GLORIA (Family) Primary Care Physician HENRY ROSE MD Dec 21, 2018 13:11
--- NOTE | 2018-12-21 13:18 | NUR ---
Assisted pt to bedside commode at this time. Call crawford in reach, curtain pulled for privacy and pt voices she will push call light when ready.
--- NOTE | 2018-12-21 13:24 | NUR ---
arm sling applied to right arm at this time
[2018-12-21 13:31] LABS: BILIRUBIN,URINE NEGATIVE (NEGATIVE); CLARITY,URINE CLEAR; COLOR,URINE YELLOW; GLUCOSE, URINE (UA) NEGATIVE (NEGATIVE); KETONES,URINE 1+ (NEGATIVE); LEUKOCYTE ESTERASE ,URINE 3+ (NEGATIVE); NITRITE,URINE POSITIVE (NEGATIVE); PH,URINE 5 (5-9); PROTEIN,URINE 2+ (NEGATIVE); UROBILINOGEN,URINE 1 MG/DL (NORMAL)
[2018-12-21 13:35] LABS: INR 1.9 (0.8-1.4); PROTHROMBIN TIME PATIENT 22.4 SEC (12.2-14.7)
[2018-12-21] MEDS ORDERED: VANCOMYCIN INJECTION 1,000 MG in NS (IVPB) 250 ML IV ONE (13:45)
[2018-12-21 13:48] LABS: BACTERIA,URINE LARGE /HPF; WBC,URINE TNTC /HPF
--- NOTE | 2018-12-21 14:00 | Diagnostic Imaging Report ---
Patient History: Shoulder pain. Technique: Single frontal view of the chest Comparison: 07/15/2018 FINDINGS: The lung volumes are normal. No focal consolidation is seen. No large pleural effusion or pneumothorax is seen. The cardiomediastinal silhouette is enlarged. There is calcified aortic atherosclerotic plaque. No acute osseous abnormality is seen. Degenerative changes are noted in the right shoulder. IMPRESSION: 1. No acute pleuroparenchymal process. 2. Cardiomegaly. Dictated by: Dictated on workstation # [id number]
--- NOTE | 2018-12-21 14:16 | History & Physical ---
RACIEL SOSA, 12/21/18 1416: HPI History of Present Illness: HPI: Pt presented to ED for R shoulder pain, but upon exam, was found to have gangrene of her toes. Pt had an appointment with Dr. Olvera today regarding her toe issues. She has been having problems for 6 weeks with fevers and chills starting 2 weeks ago. They are painful to the touch and when she walks. There is occasional bleeding. Her most painful toe is her 2nd right toe, but all hurt. Rates 4-5/10 on pain scale. Epsom salt baths help. She has had a blood flow study performed and has blood flow to her legs and feet, but nothing to her toes. Denies hx of DM. Source: patient Exam Limitations: no limitations Date seen by provider: Dec 21, 2018 Time Seen by Provider: 13:04 Attending Physician Hernan Cruz MD PCP Center[place] [place] Consult Date of Admission Dec 21, 2018 at 13:47 Home Medications Home Medications Reviewed patient Home Medication Reconciliation performed by pharmacy medication reconciliations radiocommunications technician and/or nursing. Patients Allergies have been reviewed. Allergies Coded Allergies: No Known Drug Allergies (Verified , 10/21/08) [id number]-[id number]-[id number] Hx Patient Social History Alcohol Use: Denies Use Recreational Drug Use: No Smoking Status: Current Everyday Smoker (3-5 cigarettes/day for last 3 weeks) Type Used: Cigarettes 2nd Hand Smoke Exposure: Yes Recent Foreign Travel: No Contact w/other who traveled: No Recent Hopitalizations: No (CVA 4-19) Recent Infectious Disease Expo: No Immunizations Up To Date Date of Pneumonia Vaccine: Dec 22, 2008 Date of Influenza Vaccine: Dec 23, 2011 Past Medical History PMHx: 1. Gout 2. Hx of stroke 07/13/2018 3. 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 HTN 5. Hx of vulvar ca 6. Hx of cervical ca 7. Lymphedema of R leg 8. Lupus PSHx: 1. Cholecystectomy 2. Hysterectomy 3. Modified radical vulvectomy 4. Plate/pins R ankle 5. Bladder surgery d/t incontinence Family Medical History Significant Family History: Cancer (cousin had breast ca), Diabetes (everyone), Lung Disease (father from TB), Stroke (most women in her family) Family History: Patient reports no known family medical history. Review of Systems ([facility]) Constitutional: chills, fever, weight loss (40# over last year, unintentional) EENTM: vision loss (peripheral vision bilaterally d/t stroke); No hearing loss, No throat pain Respiratory: No cough; short of breath (when walking; started w/in last 2 weeks, maybe 20ft before she can't breathe) Cardiovascular: No chest pain, No palpitations Gastrointestinal: diarrhea, nausea, vomiting Genitourinary: dysuria; No frequency, No hematuria Musculoskeletal: gout, joint pain (especially R hip), other (uses cane to ambulate) Skin: lesions (red lesions on R & L arms); No rash Psychiatric/Neurological: Denies Anxiety, Denies Depressed, Denies Numbness; Tingling (no tingling in hands, but cannot feel feet) Physical Exam-([facility]) Physical Exam Vital Signs VS - Last 72 Hours, by Label 12/21/18 12/21/18 09:57 13:59 Temp 38.0 Pulse 76 54 Resp 18 18 B/P (MAP) 155/76 (102) 144/77 Pulse Ox 96 95 O2 Delivery Room Air Room Air Capillary Refill : Less Than 3 Seconds General Appearance: WD/WN, no apparent distress Eyes: Bilateral Eye Normal Inspection, Bilateral Eye EOMI HEENT: pharynx normal; No pale conjunctivae (R), No pale conjunctivae (L) Neck: non-tender, supple Respiratory: chest non-tender, lungs clear, normal breath sounds, no respiratory distress, no accessory muscle use Cardiovascular: regular rate, rhythm, no murmur Gastrointestinal: normal bowel sounds, non tender, soft Extremities: normal inspection, other (gangrene of toes bilateral feet) Neurologic/Psychiatric: alert, oriented x 3 Skin: normal color, warm/dry, other (gangrene of toes bilaterally) Lymphatic: no adenopathy Assessment/Plan Assessment/Plan Assessment & Plan Assessment: 1. Gangrene of toes 2. Raynaud's d/t Lupus 3. Hx of stroke Plan: 1. Empiric abx started in ED. Await culture and de-escalate. Surgery consult for amputation. 2. Begin nifedipine to help with blood flow to rest of her toes. 3. Begin home medications. Wait until after surgery if scheduled immediately. HERNAN CRUZ MD 12/21/18 1748: Home Medications Allergies Coded Allergies: No Known Drug Allergies (Verified , 10/21/08) [id number]-[id number] Hx Family Medical History Family History: Patient reports no known family medical history. Reviewed Test Results Reviewed Test Results Lab Laboratory Tests Test 12/21/18 10:40 12/21/18 13:01 12/21/18 13:21 Range/Units White Blood Count 12.4 H 4.3-11.0 10^3/uL Red Blood Count 4.50 4.35-5.85 10^6/uL Hemoglobin 12.6 11.5-16.0 G/DL Hematocrit 40 35-52 % Mean Corpuscular Volume 88 80-99 FL Mean Corpuscular Hemoglobin 28 25-34 PG Mean Corpuscular Hemoglobin Concent 32 32-36 G/DL Red Cell Distribution Width 15.1 H 10.0-14.5 % Platelet Count 300 130-400 10^3/uL Mean Platelet Volume 11.3 H 7.4-10.4 FL Neutrophils (%) (Auto) 81 H 42-75 % Lymphocytes (%) (Auto) 7 L 12-44 % Monocytes (%) (Auto) 10 0-12 % Eosinophils (%) (Auto) 2 0-10 % Basophils (%) (Auto) 0 0-10 % Neutrophils # (Auto) 10.0 H 1.8-7.8 X 10^3 Lymphocytes # (Auto) 0.9 L 1.0-4.0 X 10^3 Monocytes # (Auto) 1.2 H 0.0-1.0 X 10^3 Eosinophils # (Auto) 0.2 0.0-0.3 10^3/uL Basophils # (Auto) 0.0 0.0-0.1 10^3/uL Neutrophils % (Manual) 89 % Lymphocytes % (Manual) 7 % Monocytes % (Manual) 3 % Eosinophils % (Manual) 1 % Basophils % (Manual) 0 % Band Neutrophils 0 % Blood Morphology Comment NORMAL Sodium Level 139 135-145 MMOL/L Potassium Level 4.0 3.6-5.0 MMOL/L Chloride Level 105 98-107 MMOL/L Carbon Dioxide Level 22 21-32 MMOL/L Anion Gap 12 5-14 MMOL/L Blood Urea Nitrogen 14 7-18 MG/DL Creatinine 1.65 H 0.60-1.30 MG/DL Estimat Glomerular Filtration Rate 31 BUN/Creatinine Ratio 8 Glucose Level 102 70-105 MG/DL Uric Acid 8.2 H 2.6-7.2 MG/DL Calcium Level 9.4 8.5-10.1 MG/DL Corrected Calcium 9.7 8.5-10.1 MG/DL Total Bilirubin 1.0 0.1-1.0 MG/DL Aspartate Amino Transf (AST/SGOT) 19 5-34 U/L Alanine Aminotransferase (ALT/SGPT) 11 0-55 U/L Alkaline Phosphatase 89 40-136 U/L C-Reactive Protein High Sensitivity 2.16 H 0.00-0.50 MG/DL Total Protein 7.5 6.4-8.2 GM/DL Albumin 3.6 3.2-4.5 GM/DL Prothrombin Time 22.4 H 12.2-14.7 SEC INR Comment 1.9 H 0.8-1.4 Activated Partial Thromboplast Time 35 24-35 SEC Lactic Acid Level 1.51 0.50-2.00 MMOL/L Urine Color YELLOW Urine Clarity CLEAR Urine pH 5 5-9 Urine Specific Amity 1.025 H 1.016-1.022 Urine Protein 2+ H NEGATIVE Urine Glucose (UA) NEGATIVE NEGATIVE Urine Ketones 1+ H NEGATIVE Urine Nitrite POSITIVE H NEGATIVE Urine Bilirubin NEGATIVE NEGATIVE Urine Urobilinogen 1 NORMAL MG/DL Urine Leukocyte Esterase 3+ H NEGATIVE Urine RBC (Auto) 2+ H NEGATIVE Urine RBC 2-5 H /HPF Urine WBC TNTC H /HPF Urine Squamous Epithelial Cells NONE /HPF Urine Crystals NONE /LPF Urine Bacteria LARGE H /HPF Urine Casts NONE /LPF Urine Mucus NEGATIVE /LPF Urine Culture Indicated YES Physical Exam-([facility]) Physical Exam General Appearance: WD/WN, no apparent distress Respiratory: lungs clear, normal breath sounds, no respiratory distress Cardiovascular: regular rate, rhythm, no murmur Peripheral Pulses: 1+ Dorsalis Pedis (R), 1+ Left Dors-Pedis (L) Gastrointestinal: normal bowel sounds, non tender, soft Extremities: other (puplish to black discoloration of all toes, right middle toe with eschar at tip with small area of opening and scant drainage) Neurologic/Psychiatric: alert Skin: other (gangrene of toes bilaterally) Assessment/Plan Assessment/Plan Admission Status: Inpatient Order (span 2 midnights) Reason for Inpatient Admission: Osteomyelitis with sepsis, likely will require amputation, will need 2 nights or more for treatment. (1) Osteomyelitis of toe Status: Acute Assessment & Plan: Right second digit suspected based on x-ray findings. With fever and leukocytosis, concern for sepsis as well. Zosyn and Vancomycin st arted, Surgery consulted. Reviewed notes from Cardiovascular on 11/20 outpatient- had arterial flow eval with normal waveforms to transmetatarsal, but decreased in digits, they suggested smoking cessation and continue statin and anticoagulation and antiplatelet therapy. (2) Sepsis Status: Acute Assessment & Plan: Zosyn and vancomycin. Lactic acid not elevated, BP okay. Qualifiers: Qualified Codes: A41.9 - Sepsis, unspecified organism (3) Acute renal failure Status: Acute Assessment & Plan: Uncertain etiology and has been elevated intermittently over the last several months, may be developing CKD. IVF and monitor closely. Qualifiers: Qualified Codes: N17.9 - Acute kidney failure, unspecified (4) Lupus (systemic lupus erythematosus) Status: Chronic Assessment & Plan: Resume home plaquenil. Question whether severe Raynaud's may contribute to her digital ischemia, however, has been present for 6 weeks so treatment unlikely to be very beneficial at this time. Will add CCB, was on amlodipine in past. Last note from Cardiovascular stated they did not know if she would tolerate CCB for unclear reason, will monitor closely. (5) Gout Status: Acute Assessment & Plan: Elevated uric acid, but also has TRAE currently. Right shoulder pain possibly gout related. Qualifiers: Qualified Codes: M1A.9XX0 - Chronic gout, unspecified, without tophus (tophi) (6) UTI (urinary tract infection) Status: Acute Qualifiers: Qualified Codes: N39.0 - Urinary tract infection, site not specified (7) Right shoulder pain Status: Acute Assessment & Plan: Xray with degenerative changes and evidence of chronic rotator cuff injury. If persistent difficulties, consider subacromial steroid injection. Qualifiers: Qualified Codes: M25.511 - Pain in right shoulder (8) Thrombosis, renal vein Status: Chronic Assessment & Plan: 11/2017, per hospital discharge, no intervention, chronic anticoagulation. (9) DVT prophylaxis Status: Acute Assessment & Plan: On chronic anticoagulation, but on hold for tonight for likely surgery in the am. Supervisory-Addendum Brief Verification & Attestation Participated in pt care: history, MDM, physical Personally performed: exam, history, MDM, supervision of care Care discussed with: Medical Student Procedures: n/a Verification and Attestation of Medical Student E/M Service A medical student performed and documented this service in my presence. I reviewed and verified all information documented by the medical student and made modifications to such information, when appropriate. I personally performed the physical exam and medical decision making. See my physical exam section for my exam and problem list for my assessment and plan. Hernan Cruz, Dec 21, 2018,20:27 RACIEL SOSA, Dec 21, 2018 14:16 HERNAN CRUZ MD Dec 21, 2018 17:48
[2018-12-21] MEDS ORDERED: fentaNYL INJECTION 100 MCG/2 ML AMP IV PRN (14:30)
[2018-12-21] MEDS ORDERED: ONDANSETRON 4 MG/2 ML (SDV) Z0FRAN IV PRN (14:30)
[2018-12-21] MEDS ORDERED: CATHETER FLUSH 10 ML SYR IV PRN (14:30)
[2018-12-21 14:36] VITALS: BP 140/66
--- NOTE | 2018-12-21 14:52 | NUR ---
VANCOMYCIN DOSING SCR 1.65; CRCL ~ 27; ADJ BW 55 KG; VANC 1 GM GIVEN IN ED - DOSED VANC 15 MG/KG X 69 KG ~ 1 GM Q24H CHECK TROUGH LEVEL 10/2 AT 1300 HOLD DOSE AND CONTACT PHARMACY IF LEVEL IS GREATER THAN 20
[2018-12-21] MEDS ORDERED: METO-370 PO ×2 (15:19)
[2018-12-21] MEDS ORDERED: ASPI-999 PO ×2 (15:19)
[2018-12-21] MEDS ORDERED: ATOR20TA66 PO ×2 (15:19)
[2018-12-21] MEDS ORDERED: GABA-486 PO ×2 (15:25)
[2018-12-21] MEDS ORDERED: MULT1TAB69 PO ×2 (15:26)
[2018-12-21] MEDS ORDERED: FLU QUADRIvalent (5+ YOA) 2019-2020 (AFLURIA) 0.5 ML IM ONE (15:30)
[2018-12-21] MEDS: NS IV 1000 ML 1,000 ML IV SCH (15:39)
[2018-12-21] MEDS: amLODIPine 10 MG (NORVASC) TAB PO SCH (15:44)
--- NOTE | 2018-12-21 15:52 | NUR ---
RD ASSESSMENT PMHx: Gout, Stroke, HTN, CA (vulvar,cervical) PT INTERACTION: Pt was awake and pleasant during consult for MST Score. Pt states current appetite has "not been great" and it has been that way for the past several weeks. Pt states some recent issues with n/v at this time. Pt states having chronic diarrhea for the past 12 years since undergoing chemo treatment. Pt states recent 7# wt loss over the past month. Note 6# wt loss x2mon, per chart review. ABNORMAL NUTRITION-RELATED LAB VALUES: cr 1.65 (H) Est. kcal needs: 0907-1796 kcal (20-25 kcal/kg) Est. Pro needs: 83-104 g Pro (1.2-1.5 g Pro) PES STATEMENT: Inadequate protein intake related to increased protein needs as evidenced by wounds (gangrene on R toes) INTERVENTION: Advance diet to Heart Healthy, when medically able. Pt would benefit from nutrition supplementation for perceived benefit of wound healing. Add Ensure Enlive (vary) to meals BID. Provides 350 kcal and 20 g Pro per serving. MONITOR/EVALUATE: PO Intake Supplement tolerance Weight Status Hydration Status Wounds S. Gregg Bell, MS, RD [phone]
--- NOTE | 2018-12-21 15:53 | NUR ---
EUGENIO PARKER admitted to room 417-1, with an admitting diagnosis of SEPSIS, OSTEOMELITIS, ACUTE RENAL FAILURE AND RT SHOULDER PAIN, on 12/21/18 from [place] via ER, accompanied Joseph PERSONNEL].EUGENIO PARKER introduced to surroundings, call light, bed controls, phone, TV, temperature control, lights, meal times, smoking policy, visitor policy, side rail policy, bathrooms and showers. EUGENIO PARKER verbalizes understanding that [facility] is not responsible for the loss or damage to any personal effects or valuables that are kept in the patients posession during their hospitalization. The following Patient Care Plans were discussed with the PATIENT: Discharge Planning, SEPSIS,ARF, and OSTEOMELITIS. EUGENIO PARKER verbalizes understanding of Interdisciplinary Patient Education. Patient and/or family were informed about the Rapid Response Team and its purpose.
[2018-12-21 16:00] VITALS: BP 125/69
[2018-12-21] MEDS: HYDROcodone/APAP 5 MG/325 MG (LORTAB) TAB PO PRN (17:23)
[2018-12-21] MEDS ORDERED: NON-FORMULARY MEDICATION 1 EA EA (Ondansetron HCl 4 MG) PO PRN (17:45)
[2018-12-21] MEDS ORDERED: GABAPENTIN 100 MG (NEURONTIN) CAP PO PRN (17:45)
[2018-12-21] MEDS ORDERED: ONDANSETRON 4 MG (ZOFRAN) ORAL DISSOLVE TAB PO PRN (18:00)
--- NOTE | 2018-12-21 18:11 | Consultation - Surgery ---
[facility] R[facility] 12/21/18 1810: History of Present Illness History of Present Illness Patient Consulted On(adams/time) 12/21/18 18:04 Date Seen by Provider: Dec 21, 2018 Time Seen by Provider: 17:45 History of Present Illness Consult requested by Dr. Steve for gangrenous toes. Patient is a 73 year old female that presented to ED with R shoulder pain and gangrenous toes. On examination, the R 2nd toe has dry black eschar and all toes have a purple hue to them. Toe is painful to touch, aggravated by walking and alleviated by soaking in Epsom salt. Pain is non radiating. She has been having this problem with her toes for 3 months now. Blood flow study performed and there is no blood to going to her toes. Patient denies feeling any numbness in her toes and feet. Admits to tingling and throbbing feeling throughout her toes. Pain is rated 8/10 at its worse. Toe Xray revealed mild cortical irregularity at the right second toe distal phalanx, concerning for osteomyelitis. Allergies and Home Medications Allergies Coded Allergies: No Known Drug Allergies (Verified , 10/21/08) Home Medications Apixaban 5 Mg Tablet, 5 MG PO BID, (Reported) Aspirin 81 Mg Tab.chew, 81 MG PO DAILY, (Reported) Atorvastatin Calcium 20 Mg Tablet, 20 MG PO HS, (Reported) Diphenoxylate HCl/Atropine 1 Each Tablet, 1 TAB PO Q4H PRN for DIARRHEA, (Reported) Gabapentin 100 Mg Capsule, 100 MG PO BID PRN for NERVE PAIN, (Reported) LAST FILLED #90 09-23-18 (CAN NOT AFFORD ALL THE TIME SO TRIES TO SPREAD IT OUT) Hydrocodone/Acetaminophen 1 Each Tablet, 1 TAB PO TID PRN for PAIN-MODERATE, (Reported) Hydroxychloroquine Sulfate 200 Mg Tablet, 400 MG PO DAILY, (Reported) TAKES 2 (200MG) TABLETS Metoprolol Succinate 50 Mg Tab.er.24h, 50 MG PO DAILY, (Reported) Multivitamin 1 Each Tablet, 1 TAB PO DAILY, (Reported) Ondansetron HCl 4 Mg Tablet, 4 MG PO Q6H PRN for NAUSEA/VOMITING-1ST LINE, (Reported) Prednisone 10 Mg Tab, 10 MG PO DAILY, (Reported) Vilazodone Hydrochloride 20 Mg Tablet, 20 MG PO DAILY, (Reported) Patient Home Medication List Home Medication List Reviewed: Yes Past Xotjdpg-Lzrkdy-Mvkjus Hx Patient Social History Alcohol Use: Denies Use Recreational Drug Use: No Smoking Status: Current Everyday Smoker (5-6 cigarettes per day) Type Used: Cigarettes 2nd Hand Smoke Exposure: Yes Recent Foreign Travel: No Contact w/Someone Who Travel: No Recent Infectious Disease Expo: No Recent Hopitalizations: No (CVA 4-19) Physical Abuse Screen: No Sexual Abuse: No Immunizations Up To Date PED Vaccines UTD: No Date of Pneumonia Vaccine: Dec 22, 2008 Date of Influenza Vaccine: Dec 21, 2016 Seasonal Allergies Seasonal Allergies: No Surgeries History of Surgeries: Yes Surgeries: Abdominal, Adenoidectomy, Cardiac, Gallbladder, Hysterectomy, Oophorectomy, Orthopedic, Tonsillectomy Respiratory History of Respiratory Disorde: No Respiratory Disorders: Pneumonia Cardiovascular History of Cardiac Disorders: Yes (history of aortic thrombus) Cardiac Disorders: Coronary Artery Disease, High Cholesterol, Hypertension, Peripheral Vascular (history of renal infarct) Neurological History of Neurological Disord: Yes Neurological Disorders: Neuropathy, Stroke (Stroke in July 2018) 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 System Hx 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 Disorders: Yes (HX OF VULVAR CA--MODIFIED RADICAL VULVECTOMY 1991) Sexually Transmitted Disease: No HIV/AIDS: No 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 Disorders: 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, 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 Genitourinary History of Genitourinary Disor: Yes (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) Gastrointestinal History of Gastrointestinal Di: Yes Gastrointestinal Disorders: Chronic Diarrhea, Gall Bladder Disease Musculoskeletal History of Musculoskeletal Dis: Yes Musculoskeletal Disorders: Arthritis, Gout Endocrine History of Endocrine Disorders: Yes Endocrine Disorders: Lupus HEENT History of HEENT Disorders: No Loss of Vision: Left Hearing Impairment: Denies Cancer History of Cancer: Yes Cancer: Cervical, Vaginal (vulvar) Psychosocial History of Psychiatric Problem: Yes Behavioral Health Disorders: Anxiety, Depression Integumentary History of Skin or Integumenta: No Blood Transfusions History of Blood Disorders: No Adverse Reaction to a Blood Tr: No Family Medical History Significant Family History: Cancer (cousin had breast ca), Diabetes (everyone), Lung Disease (father from TB), Stroke (most women in her family) Family Medial History: Patient reports no known family medical history. Review of Systems-General Constitutional: weight loss (47 lbs lost since november 2017 that patient states was unintentional and attributes to loss of appetite. ) EENTM: no symptoms reported Respiratory: No cough, No short of breath Cardiovascular: No chest pain, No palpitations Gastrointestinal: no symptoms reported Genitourinary: dysuria Musculoskeletal: gout, joint pain Skin: no symptoms reported Psychiatric/Neurological: No Symptoms Reported Physical Exam-General Problems Physical Exam Vital Signs Vital Signs - First Documented 12/21/18 09:57 Temp 38.0 Pulse 76 Resp 18 B/P (MAP) 155/76 (102) Pulse Ox 96 O2 Delivery Room Air Capillary Refill : Less Than 3 Seconds General Appearance: WD/WN, no apparent distress HEENT: PERRL/EOMI, pharynx normal Neck: full range of motion Respiratory: no respiratory distress, no accessory muscle use Cardiovascular: regular rate, rhythm Gastrointestinal: non tender, soft; No tenderness Rectal: deferred Back: no CVA tenderness Extremities: other (R 2nd toe - dry black eschar, purple hue on all toes. ) Neurologic/Psychiatric: alert, normal mood/affect, oriented x 3 Skin: warm/dry Lymphatic: no adenopathy Data Review Labs Laboratory Tests 12/21/18 10:40: White Blood Count 12.4H, Red Blood Count 4.50, Hemoglobin 12.6, Hematocrit 40, Mean Corpuscular Volume 88, Mean Corpuscular Hemoglobin 28, Mean Corpuscular Hemoglobin Concent 32, Red Cell Distribution Width 15.1H, Platelet Count 300, Mean Platelet Volume 11.3H, Neutrophils (%) (Auto) 81H, Lymphocytes (%) (Auto) 7L, Monocytes (%) (Auto) 10, Eosinophils (%) (Auto) 2, Basophils (%) (Auto) 0, Neutrophils # (Auto) 10.0H, Lymphocytes # (Auto) 0.9L, Monocytes # (Auto) 1.2H, Eosinophils # (Auto) 0.2, Basophils # (Auto) 0.0, Neutrophils % (Manual) 89, Lymphocytes % (Manual) 7, Monocytes % (Manual) 3, Eosinophils % (Manual) 1, Basophils % (Manual) 0, Band Neutrophils 0, Blood Morphology Comment NORMAL, Sodium Level 139, Potassium Level 4.0, Chloride Level 105, Carbon Dioxide Level 22, Anion Gap 12, Blood Urea Nitrogen 14, Creatinine 1.65H, Estimat Glomerular Filtration Rate 31, BUN/Creatinine Ratio 8, Glucose Level 102, Uric Acid 8.2H, Calcium Level 9.4, Corrected Calcium 9.7, Total Bilirubin 1.0, Aspartate Amino Transf (AST/SGOT) 19, Alanine Aminotransferase (ALT/SGPT) 11, Alkaline Phosphatase 89, C-Reactive Protein High Sensitivity 2.16H, Total Protein 7.5, Al bumin 3.6 12/21/18 13:01: Prothrombin Time 22.4H, INR Comment 1.9H, Activated Partial Thromboplast Time 35, Lactic Acid Level 1.51 12/21/18 13:21: Urine Color YELLOW, Urine Clarity CLEAR, Urine pH 5, Urine Specific [place] 1.025H, Urine Protein 2+H, Urine Glucose (UA) NEGATIVE, Urine Ketones 1+H, Urine Nitrite POSITIVEH, Urine Bilirubin NEGATIVE, Urine Urobilinogen 1, Urine Leukocyte Esterase 3+H, Urine RBC (Auto) 2+H, Urine RBC 2-5H, Urine WBC TNTCH, Urine Squamous Epithelial Cells NONE, Urine Crystals NONE, Urine Bacteria LARGEH , Urine Casts NONE, Urine Mucus NEGATIVE, Urine Culture Indicated YES Assessment/Plan Assessment/Plan Assessment/Plan R 2nd Toe has dry black eschar osteomyelitis lack of proper blood supply to toes shown during blood flow study Smoker Hx of Lupus Hx of gout Hx of stroke (July 2018) R kidney failure Weight loss Hx of reproductive cancers Considered and discussed amputation of the R 2nd toe vs 6 weeks of abx and monitoring with patient. Patient opted for abx regimen. Will re-evaluate tomorrow NPO after midnight in the event that surgical intervention become necessary tomorrow Discussed smoking cessation Clinical Quality Measures DVT/VTE Risk/Contraindication: Risk Factor Score Per Nursin RFS Level Per Nursing on Admit: 4+=Very High HERNANDEZ PEDERSON DO 12/22/18 1503: History of Present Illness History of Present Illness History of Present Illness Patient 73 year old female with right 2nd toe has been having black dry area on it. Her toes have hurt for about 3 months. She has appointment with Dr. Cotter for further evaluation of vascular flow down leg she states. She states walking or touching toes cuases worsening throbbing pain. 8/[address] Bennett was able to get a little purulent material out, and cultured. SHe was placed on antibiotics. She is on anticoagulation. Right foot xray demonstrating changes suggestive of osteomyelitis of right second toe distal phalanx. Allergies and Home Medications Allergies Coded Allergies: No Known Drug Allergies (Verified , 10/21/08) Home Medications Apixaban 5 Mg Tablet, 5 MG PO BID, (Reported) Aspirin 81 Mg Tab.chew, 81 MG PO DAILY, (Reported) Atorvastatin Calcium 20 Mg Tablet, 20 MG PO HS, (Reported) Diphenoxylate HCl/Atropine 1 Each Tablet, 1 TAB PO Q4H PRN for DIARRHEA, (Reported) Gabapentin 100 Mg Capsule, 100 MG PO BID PRN for NERVE PAIN, (Reported) LAST FILLED #90 --19 (CAN NOT AFFORD ALL THE TIME SO TRIES TO SPREAD IT OUT) Hydrocodone/Acetaminophen 1 Each Tablet, 1 TAB PO TID PRN for PAIN-MODERATE, (Reported) Hydroxychloroquine Sulfate 200 Mg Tablet, 400 MG PO DAILY, (Reported) TAKES 2 (200MG) TABLETS Metoprolol Succinate 50 Mg Tab.er.24h, 50 MG PO DAILY, (Reported) Multivitamin 1 Each Tablet, 1 TAB PO DAILY, (Reported) Ondansetron HCl 4 Mg Tablet, 4 MG PO Q6H PRN for NAUSEA/VOMITING-1ST LINE, (Reported) Prednisone 10 Mg Tab, 10 MG PO DAILY, (Reported) Vilazodone Hydrochloride 20 Mg Tablet, 20 MG PO DAILY, (Reported) Patient Home Medication List Home Medication List Reviewed: Yes Past Bdelylb-Nsprwe-Dzqhjt Hx Patient Social History Alcohol Use: Denies Use Smoking Status: Current Everyday Smoker (5-6 cigarettes per day) Type Used: Cigarettes Surgeries Surgeries: Abdominal, Adenoidectomy, Cardiac, Gallbladder, Hysterectomy, Oophorectomy, Orthopedic, Tonsillectomy Respiratory Respiratory Disorders: Pneumonia Cardiovascular Cardiac Disorders: Coronary Artery Disease, High Cholesterol, Hypertension Neurological Neurological Disorders: Neuropathy, Stroke (Stroke in July 2018) 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 Review of Systems-General Constitutional: no symptoms reported EENTM: no symptoms reported Respiratory: no symptoms reported Cardiovascular: no symptoms reported Gastrointestinal: no symptoms reported Genitourinary: no symptoms reported Musculoskeletal: joint pain Skin: no symptoms reported Psychiatric/Neurological: No Symptoms Reported Physical Exam-General Problems Physical Exam General Appearance: WD/WN, no apparent distress HEENT: PERRL/EOMI, normal ENT inspection Neck: non-tender, normal inspection Respiratory: chest non-tender, no respiratory distress, no accessory muscle use Cardiovascular: regular rate, rhythm Gastrointestinal: non tender, soft Rectal: deferred Extremities: other (R 2nd toe - dry black eschar, purple hue on all toes. ) Neurologic/Psychiatric: alert, normal mood/affect, oriented x 3 Skin: warm/dry (except toes noted above) Lymphatic: no adenopathy Assessment/Plan Assessment/Plan Assessment/Plan right second toe dry gangrene/osteomyelitis patient does not want amputation of toe if can avoid it and would like to continue medical management. i do no t see any purulent material around this and feel it could be watched. no surgical intervention at this time, will follow. Supervisory-Addendum Brief Verification & Attestation Participated in pt care: history, MDM, physical Personally performed: exam, history, MDM, supervision of care Care discussed with: Medical Student Procedures: n/a Results interpretation: Verified all documentation Verification and Attestation of Medical Student E/M Service A medical student performed and documented this service in my presence. I reviewed and verified all information documented by the medical student and made modifications to such information, when appropriate. I personally performed the physical exam and medical decision making. Hernandez Pederson, Dec 21, 2018,15:09 [facility] Dec 21, 2018 18:10 HERNANDEZ PEDERSON DO Dec 22, 2018 15:03
[2018-12-21] MEDS: PIPERACILLIN/TAZO 4.5 GM/NS 100 ML IV SCH ×2 (18:32)
[2018-12-21 19:18] VITALS: BP 136/74
[2018-12-21] MEDS ORDERED: DIPHENOXYLATE/ATROPINE 2.5MG/0.025MG (LOMOTIL) TAB ONE (22:58)
[2018-12-21] MEDS: DIPHENOXYLATE/ATROPINE 2.5MG/0.025MG (LOMOTIL) TAB PO PRN (23:08)
[2018-12-21 23:30] VITALS: BP 142/83
[2018-12-22] MEDS: NS IV 1000 ML 1,000 ML IV SCH ×4 (00:50→21:51)
[2018-12-22] MEDS: PIPERACILLIN/TAZO 4.5 GM/NS 100 ML IV SCH ×6 (03:30→19:05)
[2018-12-22 04:15] VITALS: BP 151/74
[2018-12-22 06:22] LABS: HEMOGLOBIN 10.2 G/DL (11.5-16.0); MEAN PLATELET VOLUME 11.7 FL (7.4-10.4); RED CELL DISTRIBUTION WIDTH 14.9 % (10.0-14.5); WHITE BLOOD COUNT 9.6 10^3/uL (4.3-11.0)
[2018-12-22 06:49] LABS: ALBUMIN 2.9 GM/DL (3.2-4.5); BILIRUBIN,TOTAL 0.5 MG/DL (0.1-1.0); CALCIUM 7.8 MG/DL (8.5-10.1); CREATININE SERUM 1.54 MG/DL (0.60-1.30); POTASSIUM 3.5 MMOL/L (3.6-5.0); TOTAL PROTEIN 5.2 GM/DL (6.4-8.2)
[2018-12-22 07:51] VITALS: BP 145/62
[2018-12-22] MEDS ORDERED: KCL 20 MEQ TAB (K-DUR) PO NR (08:46)
--- NOTE | 2018-12-22 08:55 | Consultation - Surgery ---
History of Present Illness History of Present Illness Patient Consulted On(adams/time) 12/22/18 08:48 Date Seen by Provider: Dec 22, 2018 Time Seen by Provider: 08:00 Reason for Visit: R 2nd Toe Pain History of Present Illness Patient is feeling better today. Pain is usually controlled with her pain medication, but has not been as helpful. Overall, patient only experiences pain in her toe while ambulating and the pain in her shoulder has also decreased. Has had a decrease in appetite. BM are normal. Allergies and Home Medications Allergies Coded Allergies: No Known Drug Allergies (Verified , 10/21/08) Home Medications Amlodipine Besylate 10 Mg Tablet, 10 MG PO DAILY Prescribed by: HERNAN CRUZ on 12/23/18 1304 Apixaban 5 Mg Tablet, 5 MG PO BID, (Reported) Aspirin 81 Mg Tab.chew, 81 MG PO DAILY, (Reported) Atorvastatin Calcium 20 Mg Tablet, 20 MG PO HS, (Reported) Ceftriaxone Sodium 2 Gm/Vial Soln, 2 GM IV DAILY Prescribed by: HERNAN CRUZ on 12/23/18 1304 Diphenoxylate HCl/Atropine 1 Each Tablet, 1 TAB PO Q4H PRN for DIARRHEA, (Reported) Gabapentin 100 Mg Capsule, 100 MG PO BID PRN for NERVE PAIN, (Reported) LAST FILLED #90 09-23-18 (CAN NOT AFFORD ALL THE TIME SO TRIES TO SPREAD IT OUT) Hydrocodone/Acetaminophen 1 Each Tablet, 1 TAB PO TID PRN for PAIN-MODERATE, (Reported) Hydroxychloroquine Sulfate 200 Mg Tablet, 400 MG PO DAILY, (Reported) TAKES 2 (200MG) TABLETS Metoprolol Succinate 50 Mg Tab.er.24h, 50 MG PO DAILY, (Reported) Multivitamin 1 Each Tablet, 1 TAB PO DAILY, (Reported) Ondansetron HCl 4 Mg Tablet, 4 MG PO Q6H PRN for NAUSEA/VOMITING-1ST LINE, (Reported) Potassium Chloride 20 Meq Tablet.er, 20 MEQ PO DAILY Prescribed by: YUDI MORRISON on 12/25/18 1241 Prednisone 10 Mg Tab, 10 MG PO DAILY, (Reported) Vancomycin HCl 1 Gm Vial, 0 IV DAILY Pharmacy to dose Prescribed by: HERNAN CRUZ on 12/23/18 1304 Vilazodone Hydrochloride 20 Mg Tablet, 20 MG PO DAILY, (Reported) Past Ptepzvv-Mtuwwi-Wnhaug Hx Patient Social History Alcohol Use: Denies Use Recreational Drug Use: No Smoking Status: Current Everyday Smoker (5-6 cigarettes per day) Type Used: Cigarettes 2nd Hand Smoke Exposure: Yes Recent Foreign Travel: No Contact w/Someone Who Travel: No Recent Infectious Disease Expo: No Recent Hopitalizations: No (CVA 4-19) Physical Abuse Screen: No Sexual Abuse: No Immunizations Up To Date PED Vaccines UTD: No Date of Pneumonia Vaccine: Dec 22, 2008 Date of Influenza Vaccine: Dec 21, 2016 Seasonal Allergies Seasonal Allergies: No Surgeries History of Surgeries: Yes Surgeries: Abdominal, Adenoidectomy, Cardiac, Gallbladder, Hysterectomy, Oophorectomy, Orthopedic, Tonsillectomy Respiratory History of Respiratory Disorde: No Respiratory Disorders: Pneumonia Cardiovascular History of Cardiac Disorders: Yes (history of aortic thrombus) Cardiac Disorders: Coronary Artery Disease, High Cholesterol, Hypertension, Peripheral Vascular (history of renal infarct) Neurological History of Neurological Disord: Yes Neurological Disorders: Neuropathy, Stroke (Stroke in July 2018) 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 System Hx 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 Disorders: Yes (HX OF VULVAR CA--MODIFIED RADICAL VULVECTOMY 1991) Sexually Transmitted Disease: No HIV/AIDS: No 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, 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 Genitourinary History of Genitourinary Disor: Yes (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) Gastrointestinal History of Gastrointestinal Di: Yes Gastrointestinal Disorders: Chronic Diarrhea, Gall Bladder Disease Musculoskeletal History of Musculoskeletal Dis: Yes Musculoskeletal Disorders: Arthritis, Gout Endocrine History of Endocrine Disorders: Yes Endocrine Disorders: Lupus HEENT History of HEENT Disorders: No Loss of Vision: Left Hearing Impairment: Denies Cancer History of Cancer: Yes Cancer: Cervical, Vaginal (vulvar) Psychosocial History of Psychiatric Problem: Yes Behavioral Health Disorders: Anxiety, Depression Integumentary History of Skin or Integumenta: No Blood Transfusions History of Blood Disorders: No Adverse Reaction to a Blood Tr: No Family Medical History Significant Family History: Cancer (cousin had breast ca), Diabetes (everyone), Lung Disease (father from TB), Stroke (most women in her family) Family Medial History: Patient reports no known family medical history. Review of Systems-General Constitutional: No chills, No fever Respiratory: No cough, No short of breath Cardiovascular: No chest pain, No palpitations Gastrointestinal: No abdominal pain Psychiatric/Neurological: No Symptoms Reported Physical Exam-General Problems Physical Exam Vital Signs Vital Signs - First Documented 12/21/18 09:57 Temp 38.0 Pulse 76 Resp 18 B/P (MAP) 155/76 (102) Pulse Ox 96 O2 Delivery Room Air Capillary Refill : Less Than 3 Seconds General Appearance: WD/WN, no apparent distress Respiratory: chest non-tender, lungs clear, normal breath sounds, no respiratory distress, no accessory muscle use Cardiovascular: regular rate, rhythm, no edema, no gallop, no JVD, no murmur Peripheral Pulses: 2+ Dorsalis Pedis (R), 2+ Left Dors-Pedis (L) Gastrointestinal: normal bowel sounds, non tender, soft, no organomegaly, no pulsatile mass Extremities: normal inspection Skin: normal color, warm/dry Data Review Labs Laboratory Tests 12/21/18 10:40: White Blood Count 12.4H, Red Blood Count 4.50, Hemoglobin 12.6, Hematocrit 40, Mean Corpuscular Volume 88, Mean Corpuscular Hemoglobin 28, Mean Corpuscular Hemoglobin Concent 32, Red Cell Distribution Width 15.1H, Platelet Count 300, Mean Platelet Volume 11.3H, Neutrophils (%) (Auto) 81H, Lymphocytes (%) (Auto) 7L, Monocytes (%) (Auto) 10, Eosinophils (%) (Auto) 2, Basophils (%) (Auto) 0, Neutrophils # (Auto) 10.0H, Lymphocytes # (Auto) 0.9L, Monocytes # (Auto) 1.2H, Eosinophils # (Auto) 0.2, Basophils # (Auto) 0.0, Neutrophils % (Manual) 89, Lymphocytes % (Manual) 7, Monocytes % (Manual) 3, Eosinophils % (Manual) 1, Basophils % (Manual) 0, Band Neutrophils 0, Blood Morphology Comment NORMAL, Sodium Level 139, Potassium Level 4.0, Chloride Level 105, Carbon Dioxide Level 22, Anion Gap 12, Blood Urea Nitrogen 14, Creatinine 1.65H, Estimat Glomerular Filtration Rate 31, BUN/Creatinine Ratio 8, Glucose Level 102, Uric Acid 8.2H, Calcium Level 9.4, Corrected Calcium 9.7, Total Bilirubin 1.0, Aspartate Amino Transf (AST/SGOT) 19, Alanine Aminotransferase (ALT/SGPT) 11, Alkaline Phosphatase 89, C-Reactive Protein High Sensitivity 2.16H, Total Protein 7.5, Albumin 3.6 12/21/18 13:01: Prothrombin Time 22.4H, INR Comment 1.9H, Activated Partial Thromboplast Time 35, Lactic Acid Level 1.51 12/21/18 13:21: Urine Color YELLOW, Urine Clarity CLEAR, Urine pH 5, Urine Specific [place] 1.025H, Urine Protein 2+H, Urine Glucose (UA) NEGATIVE, Urine Ketones 1+H, Urine Nitrite POSITIVEH, Urine Bilirubin NEGATIVE, Urine Urobilinogen 1, Urine Leukocyte Esterase 3+H, Urine RBC (Auto) 2+H, Urine RBC 2-5H, Urine WBC TNTCH, Urine Squamous Epithelial Cells NONE, Urine Crystals NONE, Urine Bacteria LARGEH , Urine Casts NONE, Urine Mucus NEGATIVE, Urine Culture Indicated YES 12/22/18 05:40: White Blood Count 9.6, Red Blood Count 3.59L, Hemoglobin 10.2L, Hematocrit 32L, Mean Corpuscular Volume 90, Mean Corpuscular Hemoglobin 28, Mean Corpuscular H emoglobin Concent 32, Red Cell Distribution Width 14.9H, Platelet Count 223, Mean Platelet Volume 11.7H, Sodium Level 142, Potassium Level 3.5L, Chloride Level 115#H, Carbon Dioxide Level 19L, Anion Gap 8, Blood Urea Nitrogen 16, Creatinine 1.54H, Estimat Glomerular Filtration Rate 33, BUN/Creatinine Ratio 10, Glucose Level 94, Calcium Level 7.8L, Corrected Calcium 8.7, Total Bilirubin 0.5, Aspartate Amino Transf (AST/SGOT) 11, Alanine Aminotransferase (ALT/SGPT) 7, Alkaline Phosphatase 72, Total Protein 5.2L, Albumin 2.9L Assessment/Plan Assessment/Plan Assessment/Plan R 2nd Toe has dry black eschar osteomyelitis lack of proper blood supply to toes shown during blood flow study Smoker Hx of Lupus Hx of gout Hx of stroke (July 2018) R kidney failure Weight loss Hx of reproductive cancers Considered and discussed amputation of the R 2nd toe vs 6 weeks of abx and monitoring with patient. Patient opted for abx regimen. Will re-evaluate tomorrow NPO after midnight in the event that surgical intervention become necessary tomorrow Discussed smoking cessation Clinical Quality Measures DVT/VTE Risk/Contraindication: Risk Factor Score Per Nursin RFS Level Per Nursing on Admit: 4+=Very High TATIANA MORTON MED STUD Dec 22, 2018 08:55
[2018-12-22] MEDS ORDERED: NON-FORMULARY MEDICATION 1 EA EA (Vilazodone Hydrochloride (Viibryd) 20 MG) PO SCH (09:00)
[2018-12-22] MEDS ORDERED: HYDROXYCHLOROQUINE SULFATE 400 MG PO SCH (09:00)
--- NOTE | 2018-12-22 10:00 | NUR ---
right arm feeling better, sling removed per Dr Steve, IV site without redness or swelling, diarrhea stool, remains NPO. black area on 2nd right toe, no drainage, pedal pulse present.
[2018-12-22 11:15] VITALS: BP 143/60
--- NOTE | 2018-12-22 11:49 | Progress Note ---
BALJINDERAMBROCIORACIEL, 12/22/18 1149: Subjective Subjective/Events-last exam Pt seen and examined. Pt is still NPO, but no surgical plan is established. Rates pain as 2/10 pain in R toe and described it as tingling. Is not ambulating. Shoulder is improved and sling removed. No complaints. Focused Exam Lactate Level 12/21/18 13:01: Lactic Acid Level 1.51 Objective Exam Last Set of Vital Signs Vital Signs Date Time Temp Pulse Resp B/P (MAP) Pulse Ox O2 Delivery O2 Flow Rate FiO2 12/22/18 11:15 37.1 67 20 143/60 (87) 97 Room Air Capillary Refill : Less Than 3 SecondsLess Than 3 Seconds I&O Intake and Output 12/22/18 00:00 Intake Total 1250 ml Balance 1250 ml Intake Oral 400 ml IV Total 850 ml # Voids 1 Daily Weight Change Yes, Greater than 33 lbs Yes, Greater than 33 lbs General: Alert, Oriented X3, Cooperative Lungs: Clear to Auscultation, Normal Air Movement Heart: Regular Rate, No Murmurs Skin: Other (dry gangrene on R toe) Results/Procedures Lab Laboratory Tests 12/21/18 13:01: Prothrombin Time 22.4H, INR Comment 1.9H, Activated Partial Thromboplast Time 35, Lactic Acid Level 1.51 12/21/18 13:21: Urine Color YELLOW, Urine Clarity CLEAR, Urine pH 5, Urine Specific [place] 1.025H, Urine Protein 2+H, Urine Glucose (UA) NEGATIVE, Urine Ketones 1+H, Urine Nitrite POSITIVEH, Urine Bilirubin NEGATIVE, Urine Urobilinogen 1, Urine Leukocyte Esterase 3+H, Urine RBC (Auto) 2+H, Urine RBC 2-5H, Urine WBC TNTCH, Urine Squamous Epithelial Cells NONE, Urine Crystals NONE, Urine Bacteria LARGEH , Urine Casts NONE, Urine Mucus NEGATIVE, Urine Culture Indicated YES 12/22/18 05:40: White Blood Count 9.6, Red Blood Count 3.59L, Hemoglobin 10.2L, Hematocrit 32L, Mean Corpuscular Volume 90, Mean Corpuscular Hemoglobin 28, Mean Corpuscular Hemoglobin Concent 32, Red Cell Distribution Width 14.9H, Platelet Count 223, Mean Platelet Volume 11.7H, Sodium Level 142, Potassium Level 3.5L, Chloride Level 115#H, Carbon Dioxide Level 19L, Anion Gap 8, Blood Urea Nitrogen 16, Creatinine 1.54H, Estimat Glomerular Filtration Rate 33, BUN/Creatinine Ratio 10, Glucose Level 94, Calcium Level 7.8L, Corrected Calcium 8.7, Total Bilirubin 0.5, Aspartate Amino Transf (AST/SGOT) 11, Alanine Aminotransferase (ALT/SGPT) 7, Alkaline Phosphatase 72, Total Protein 5.2L, Albumin 2.9L Microbiology 12/21/18 Urine Culture - Preliminary, Resulted Gram Negative Darnell Assessment/Plan Assessment/Plan Assessment & Plan Assessment: 1. Gangrene of toes 2. Raynaud's d/t Lupus 3. Hx of stroke Plan: 1. Continue empiric abx as culture has not come back on pus from toe. Surgical consult for amputation. 2. Start amlodipine PO once NPO status removed. 3. Continue home medications once NPO status is removed. (1) Osteomyelitis of toe Status: Acute Assessment & Plan: Right second digit suspected based on x-ray findings. With fever and leukocytosis, concern for sepsis as well. Zosyn and Vancomycin started, Surgery consulted. Reviewed notes from Cardiovascular on 11/20 outpatient- had arterial flow eval with normal waveforms to transmetatarsal, but decreased in digits, they suggested smoking cessation and continue statin and anticoagulation and antiplatelet therapy. (2) Sepsis Status: Acute Assessment & Plan: Zosyn and vancomycin. Lactic acid not elevated, BP okay. Qualifiers: Qualified Codes: A41.9 - Sepsis, unspecified organism (3) Acute renal failure Status: Acute Assessment & Plan: Uncertain etiology and has been elevated intermittently over the last several months, may be developing CKD. IVF and monitor closely. Qualifiers: Qualified Codes: N17.9 - Acute kidney failure, unspecified (4) Lupus (systemic lupus erythematosus) Status: Chronic Assessment & Plan: Resume home plaquenil. Question whether severe Raynaud's may contribute to her digital ischemia, however, has been present for 6 weeks so treatment unlikely to be very beneficial at this time. Will add CCB, was on amlodipine in past. Last note from Cardiovascular stated they did not know if she would tolerate CCB for unclear reason, will monitor closely. (5) Gout Status: Acute Assessment & Plan: Elevated uric acid, but also has TRAE currently. Right shoulder pain possibly gout related. Qualifiers: Qualified Codes: M1A.9XX0 - Chronic gout, unspecified, without tophus (tophi) (6) UTI (urinary tract infection) Status: Acute Qualifiers: Qualified Codes: N39.0 - Urinary tract infection, site not specified (7) Right shoulder pain Status: Acute Assessment & Plan: Xray with degenerative changes and evidence of chronic rotator cuff injury. Qualifiers: Qualified Codes: M25.511 - Pain in right shoulder (8) Thrombosis, renal vein Status: Chronic Assessment & Plan: 11/2017, per hospital discharge, no intervention, chronic anticoagulation. (9) DVT prophylaxis Status: Acute Assessment & Plan: On chronic anticoagulation, but on hold for tonight for likely surgery in the am. Clinical Quality Measures DVT/VTE Risk/Contraindication: Risk Factor Score Per Nursin RFS Level Per Nursing on Admit: 4+=Very High GRACIELA STEVE MD 12/22/18 1711: Assessment/Plan Assessment/Plan Assessment & Plan Has E coli in urine, continue antibiotics, awaiting Surgery plan. (1) Lupus (systemic lupus erythematosus) Status: Chronic (2) DVT prophylaxis Status: Acute (3) Gout Status: Acute Qualifiers: Qualified Codes: M1A.9XX0 - Chronic gout, unspecified, without tophus (tophi) (4) Acute renal failure Status: Acute Qualifiers: Qualified Codes: N17.9 - Acute kidney failure, unspecified (5) Sepsis Status: Acute Qualifiers: Qualified Codes: A41.9 - Sepsis, unspecified organism (6) Osteomyelitis of toe Status: Acute (7) Right shoulder pain Status: Acute Qualifiers: Qualified Codes: M25.511 - Pain in right shoulder (8) UTI (urinary tract infection) Status: Acute Qualifiers: Qualified Codes: N39.0 - Urinary tract infection, site not specified Supervisory-Addendum Brief Verification & Attestation Participated in pt care: history, MDM, physical Personally performed: exam, history, supervision of care Care discussed with: Medical Student Procedures: n/a Verification and Attestation of Medical Student E/M Service A medical student performed and documented this service in my presence. I reviewed and verified all information documented by the medical student and made modifications to such information, when appropriate. I personally performed the physical exam and medical decision making. Graciela Steve, Dec 22, 2018,17:22 RACIEL SOSA, Dec 22, 2018 11:49 GRACIELA STEVE MD Dec 22, 2018 17:11
[2018-12-22] MEDS: HYDROXYCHLOROQUINE 200 MG (PLAQUENIL) TAB PO SCH (13:59)
[2018-12-22] MEDS: meTOproloL SUCCINATE 50 MG (TOPROL XL) TAB PO SCH (14:00)
[2018-12-22] MEDS ORDERED: VANCOMYCIN 1 GM/NS 250 ML IVPB IV SCH ×2 (14:00)
[2018-12-22] MEDS: MULTIVIT W/MINERALS TAB (THERAGRAN M) PO SCH (14:00)
[2018-12-22] MEDS: amLODIPine 10 MG (NORVASC) TAB PO SCH (14:00)
[2018-12-22] MEDS: predniSONE 10 MG TAB PO SCH (14:00)
[2018-12-22] MEDS: ENOXAPARIN 30 MG/0.3 ML (LOVENOX) SYR SC SCH (14:01)
--- NOTE | 2018-12-22 15:15 | Progress Note - Surgery ---
Subjective Date Seen by a Provider: Dec 22, 2018 Time Seen by a Provider: 12:20 Subjective/Events-last exam Patient feeling a little better. Less pain in toes. Currently NPO. Denies any new complaints. No drainage from right 2nd toe. Focused Exam Lactate Level 12/21/18 13:01: Lactic Acid Level 1.51 Objective Exam Vital Signs Date Time Temp Pulse Resp B/P (MAP) Pulse Ox O2 Delivery O2 Flow Rate FiO2 12/22/18 12:14 77 12/22/18 11:15 37.1 67 20 143/60 (87) 97 Room Air 12/22/18 07:51 36.8 70 20 145/62 (89) 95 Room Air 12/22/18 07:00 58 12/22/18 04:15 37.2 65 20 151/74 (99) 94 Room Air 12/22/18 01:00 59 12/21/18 23:30 37.0 77 18 142/83 (102) 96 Room Air 12/21/18 20:00 94 Room Air 12/21/18 19:18 37.0 57 18 136/74 (94) 96 Room Air 12/21/18 18:56 63 12/21/18 16:00 37.2 56 18 125/69 (87) 94 Room Air 12/21/18 15:11 69 I & O 12/22/18 07:00 Intake Total 1250 ml Output Total 200 ml Balance 1050 ml Capillary Refill : Less Than 3 SecondsLess Than 3 Seconds General Appearance: No Apparent Distress, WD/WN, Thin HEENT: PERRL/EOMI, Normal ENT Inspection, Other (mucous membranes somewhat dry) Neck: Normal Inspection Respiratory: Chest Non Tender, No Accessory Muscle Use, No Respiratory Distress Cardiovascular: Regular Rate, Rhythm Peripheral Pulses: 2+ Dorsalis Pedis (R), 2+ Left Dors-Pedis (L) Gastrointestinal: non tender, soft Extremity: Other (right 2nd toe with black eschar, no purulent material no fluctuance, slight erythema some tenderness with plapation. 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 as Tested Skin: Normal Color, Warm/Dry Results Lab Laboratory Tests 12/22/18 05:40: White Blood Count 9.6, Red Blood Count 3.59L, Hemoglobin 10.2L, Hematocrit 32L, Mean Corpuscular Volume 90, Mean Corpuscular Hemoglobin 28, Mean Corpuscular Hemoglobin Concent 32, Red Cell Distribution Width 14.9H, Platelet Count 223, Mean Platelet Volume 11.7H, Sodium Level 142, Potassium Level 3.5L, Chloride Level 115#H, Carbon Dioxide Level 19L, Anion Gap 8, Blood Urea Nitrogen 16, Creatinine 1.54H, Estimat Glomerular Filtration Rate 33, BUN/Creatinine Ratio 10, Glucose Level 94, Calcium Level 7.8L, Corrected Calcium 8.7, Total Bilirubin 0.5, Aspartate Amino Transf (AST/SGOT) 11, Alanine Aminotransferase (ALT/SGPT) 7, Alkaline Phosphatase 72, Total Protein 5.2L, Albumin 2.9L Microbiology 12/21/18 Urine Culture - Preliminary, Resulted Escherichia coli 12/21/18 Gram Stain - Final, Resulted 12/21/18 Wound Culture, Resulted Pending Assessment/Plan Assessment/Plan Assessment/Plan right second toe dry gangrene/osteomyelitis patient does not want amputation of toe if can avoid it and would like to continue medical management. discussed with pharmacy and best regimen would likely be Rocephin 2 grams and Vancomycin pharmacy to dose daily for 6 weeks. i still do not see any purulent material around this and feel it could be managed conservatively. If the wound changes would recommend reevaluation and likely amputation at that time. no surgical intervention at this time, will follow. Clinical Quality Measures DVT/VTE Risk/Contraindication: Risk Factor Score Per Nursin RFS Level Per Nursing on Admit: 4+=Very High HERNANDEZ PEDERSON DO Dec 22, 2018 15:15
[2018-12-22] MEDS: DIPHENOXYLATE/ATROPINE 2.5MG/0.025MG (LOMOTIL) TAB PO PRN (15:19)
[2018-12-22 16:29] VITALS: BP 142/65
[2018-12-22 19:45] VITALS: BP 117/58
[2018-12-22] MEDS: HYDROcodone/APAP 5 MG/325 MG (LORTAB) TAB PO PRN (19:59)
[2018-12-23] VITALS: BP 147/74
[2018-12-23] MEDS: PIPERACILLIN/TAZO 4.5 GM/NS 100 ML IV SCH ×4 (03:22→11:22)
[2018-12-23] MEDS: DIPHENOXYLATE/ATROPINE 2.5MG/0.025MG (LOMOTIL) TAB PO PRN (03:23)
[2018-12-23 04:00] VITALS: BP 148/67
[2018-12-23] MEDS: NS IV 1000 ML 1,000 ML IV SCH ×2 (05:52→09:11)
[2018-12-23] MEDS: HYDROXYCHLOROQUINE 200 MG (PLAQUENIL) TAB PO SCH (05:52)
[2018-12-23] MEDS: MULTIVIT W/MINERALS TAB (THERAGRAN M) PO SCH (05:52)
[2018-12-23] MEDS: ENOXAPARIN 30 MG/0.3 ML (LOVENOX) SYR SC SCH (05:52)
[2018-12-23 08:00] VITALS: BP 123/75
[2018-12-23] MEDS: meTOproloL SUCCINATE 50 MG (TOPROL XL) TAB PO SCH (08:20)
[2018-12-23] MEDS: predniSONE 10 MG TAB PO SCH (08:20)
[2018-12-23] MEDS: amLODIPine 10 MG (NORVASC) TAB PO SCH (08:20)
[2018-12-23 12:00] VITALS: BP 120/68
[2018-12-23] MEDS ORDERED: TROUGH ORDER-PHARMACY XX NR (13:00)
[2018-12-23] MEDS: HYDROcodone/APAP 5 MG/325 MG (LORTAB) TAB PO PRN (13:01)
[2018-12-23] MEDS ORDERED: CEFT2VIA12 IV ×2 (13:04)
[2018-12-23] MEDS ORDERED: VANC1VIA IV ×2 (13:04)
[2018-12-23] MEDS ORDERED: AMLO10TA7 PO ×2 (13:04)
[2018-12-23] MEDS ORDERED: VANCOMYCIN INJECTION 1,250 MG in NS (IVPB) 250 ML IV SCH (15:00)
--- NOTE | 2018-12-23 15:14 | Diagnostic Imaging Report ---
EXAMINATION: Portable erect AP chest at 02:17 p.m. INDICATION: PICC line insertion. FINDINGS: In the interval since the prior exam of 12/21/2018, right-sided PICC line has been inserted. The tip line overlies the distal superior vena cava and seems to be in good position. There is no sign of a pneumothorax on the right. The heart is stable in size when compared to the prior exam. The perihilar markings do seem more prominent than on the prior exam but this may be related to differences in film technique. There is no evidence for pneumonia or for pleural effusion. There is no sign of failure. The mediastinum is not widened. The osseous structures are intact. IMPRESSION: 1. There has been insertion of right-sided PICC line without apparent complication. The tip of the catheter overlies the distal superior vena cava and seems to be in good position. 2. There is no acute cardiopulmonary abnormality noted. Dictated by: Dictated on workstation # [id number]
--- NOTE | 2018-12-23 15:48 | NUR ---
CM/SS, respond to referral for OP IV Rx for six weeks via PICC. Multiple tasks completed to coordinate as follows: Patient will receive infusion at [facility] daily for 6 weeks. Rx and referral information provided for surgery center team. [facility] will transport round trip daily M-, family will transport weekends. Patient will be staying with her son, Bebo Taveras, at his apartment all 6 weeks: [address] [place]. 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 Patient ambulates with a cane or walker. Unit RN updated. Instructions provided on patient discharge information for reference.
[2018-12-23 16:15] VITALS: BP 145/65
--- NOTE | 2018-12-23 16:21 | Discharge Summary ---
Discharge Summary Hospital Course Problems Reviewed?: Yes Problems/Diagnosis: (1) Osteomyelitis of toe Assessment & Plan: Right second digit suspected based on x-ray findings. With fever and leukocytosis, concern for sepsis as well. Zosyn and Vancomycin started, Surgery consulted. Reviewed notes from Cardiovascular on 11/20 outpatient- had arterial flow eval with normal waveforms to transmetatarsal, but decreased in digits, they suggested smoking cessation and continue statin and anticoagulation and antiplatelet therapy. Improved on amlodipine, remains with dry eschar at distal digit, plan for 6 weeks IV ceftriaxone and vancomycin in hopes of avoiding amputation per patient desire. (2) Sepsis Assessment & Plan: Zosyn and vancomycin. Lactic acid not elevated, BP okay. Qualifiers: Qualified Codes: A41.9 - Sepsis, unspecified organism (3) Acute renal failure Assessment & Plan: Uncertain etiology and has been elevated intermittently over the last several months, may be developing CKD. IVF and monitor closely. Improved at d/c. Qualifiers: Qualified Codes: N17.9 - Acute kidney failure, unspecified (4) Lupus (systemic lupus erythematosus) Assessment & Plan: Resume home plaquenil. Question whether severe Raynaud's may contribute to her digital ischemia, however, has been present for 6 weeks so treatment unlikely to be very beneficial at this time. Will add CCB, was on amlodipine in past. Last note from Cardiovascular stated they did not know if she would tolerate CCB for unclear reason, will monitor closely. Resumed amlodipine and tolerating well. (5) Gout Assessment & Plan: Elevated uric acid, but also has TRAE currently. Right shoulder pain possibly gout related but resolved rapidly with no intervention. Qualifiers: Qualified Codes: M1A.9XX0 - Chronic gout, unspecified, without tophus (tophi) (6) UTI (urinary tract infection) Assessment & Plan: E coli pansensitive. Qualifiers: Qualified Codes: N39.0 - Urinary tract infection, site not specified (7) Right shoulder pain Assessment & Plan: Xray with degenerative changes and evidence of chronic rotator cuff injury. Qualifiers: Qualified Codes: M25.511 - Pain in right shoulder (8) Thrombosis, renal vein Assessment & Plan: 11/2017, per hospital discharge, no intervention, chronic anticoagulation. Hospital Course Date of Admission: Dec 21, 2018 at 13:47 Admission Diagnosis : Family Physician/Provider: Peng Meade Date of Discharge: 12/23/18 Discharge Diagnosis: See problem list Hospital Course: see problem list Labs and Pending Lab Test: Laboratory Tests 12/23/18 13:15: Vancomycin Level Trough 12.4 Microbiology 12/21/18 Blood Culture - Preliminary, Resulted No growth 12/21/18 Urine Culture - Final, Complete Escherichia coli 12/21/18 Gram Stain - Final, Resulted 12/21/18 Wound Culture - Preliminary, Resulted Staphylococcus aureus Mixed Bacterial Taya Home Meds Active Vancomycin HCl 1 Gm Vial 0 IV DAILY Pharmacy to dose Ceftriaxone (Ceftriaxone Sodium) 2 Gm/Vial Soln 2 Gm IV DAILY 42 Days Amlodipine Besylate 10 Mg Tablet 10 Mg PO DAILY Reported Multivitamins (Multivitamin) 1 Each Tablet 1 Tab PO DAILY Gabapentin 100 Mg Capsule 100 Mg PO BID PRN LAST FILLED #90 09-23- (CAN NOT AFFORD ALL THE TIME SO TRIES TO SPREAD IT OUT) Aspirin 81 Mg Tab.chew 81 Mg PO DAILY Atorvastatin Calcium 20 Mg Tablet 20 Mg PO HS Metoprolol Succinate 50 Mg Tab.er.24h 50 Mg PO DAILY Viibryd (Vilazodone Hydrochloride) 20 Mg Tablet 20 Mg PO DAILY Eliquis (Apixaban) 5 Mg Tablet 5 Mg PO BID Hydrocodone-Acetamin 5-325 mg (Hydrocodone/Acetaminophen) 1 Each Tablet 1 Tab PO TID PRN Ondansetron HCl 4 Mg Tablet 4 Mg PO Q6H PRN Diphenoxylate-Atrop 2.5-0.025 (Diphenoxylate HCl/Atropine) 1 Each Tablet 1 Tab PO Q4H PRN Hydroxychloroquine Sulfate 200 Mg Tablet 400 Mg PO DAILY TAKES 2 (200MG) TABLETS Prednisone 10 Mg Tab 10 Mg PO DAILY Assessment/Pt DC Instructions see above Discharge Diet: Cardiac Diet Activity as Tolerated: Yes Orders-Post D/C & Referrals Pneu Vac Indicated: Yes Discharge Physical Examination Allergies: Coded Allergies: No Known Drug Allergies (Verified , 10/21/08) General Appearance: No Apparent Distress, WD/WN Respiratory: Lungs Clear, Normal Breath Sounds Cardiovascular: Regular Rate, Rhythm, No Murmur Extremity: Other (right second digit with black eschar at tip about half width of toe, remaining toes with fairly normal coloring) Copy Copies To 1: Daniel Meade APRN Discharge Summary Date of Admission Dec 21, 2018 at 13:47 Date of Discharge Discharge Date: Dec 23, 2018 Clinical Quality Measures DVT/VTE Risk/Contraindication: Risk Factor Score Per Nursin RFS Level Per Nursing on Admit: 4+=Very High HERNAN CRUZ MD Dec 23, 2018 16:21
--- NOTE | 2018-12-23 17:38 | Progress Note - Surgery ---
[facility] 12/23/18 1738: Subjective Date Seen by a Provider: Dec 23, 2018 Time Seen by a Provider: 07:20 Subjective/Events-last exam Patient feels much better today and toes look much better today and has no purulent drainage. Patient has some pain with ambulation. Patient's shoulder also feels better. Denies fevers, chills, sweating, nausea, vomiting, Shortness of breath, or chest pain. PICC line has been inserted and appears to be in good position at the distal SVC.Vancomycin is at a 12.4 Review of Systems General: No Chills, No Night Sweats Pulmonary: No Cough Cardiovascular: No: Chest Pain Gastrointestinal: No: Nausea, Vomiting, Abdominal Pain Focused Exam Lactate Level 12/21/18 13:01: Lactic Acid Level 1.51 Respiratory: Chest Non Tender, Lungs Clear, Normal Breath Sounds, No Accessory Muscle Use, No Respiratory Distress Cardiovascular: Regular Rate, Rhythm, No Edema, No Gallop, No JVD, No Murmur, Normal Peripheral Pulses Peripheral Pulses: 2+ Dorsalis Pedis (R), 2+ Left Dors-Pedis (L) Objective Exam Vital Signs Date Time Temp Pulse Resp B/P (MAP) Pulse Ox O2 Delivery O2 Flow Rate FiO2 12/23/18 16:15 36.6 59 18 145/65 (91) 97 Room Air 12/23/18 13:00 62 12/23/18 12:00 36.8 54 18 120/68 (85) 96 Room Air 12/23/18 08:30 Room Air 12/23/18 08:00 36.0 53 18 123/75 (91) 97 Room Air 12/23/18 07:00 72 12/23/18 04:00 36.8 55 18 148/67 (94) 99 Room Air 12/23/18 01:00 62 12/23/18 00:00 36.8 70 18 147/74 (98) 93 Room Air 12/22/18 20:45 Room Air 12/22/18 19:45 36.7 62 20 117/58 (77) 94 Room Air 12/22/18 19:00 70 I & O 12/23/18 07:00 Intake Total 2614 ml Output Total 850 ml Balance 1764 ml Capillary Refill : Less Than 3 SecondsLess Than 3 Seconds General Appearance: No Apparent Distress, WD/WN HEENT: PERRL/EOMI, Normal ENT Inspection, Other (mucous membranes somewhat dry) Neck: Normal Inspection Respiratory: Chest Non Tender, Lungs Clear, Normal Breath Sounds, No Accessory Muscle Use, No Respiratory Distress Cardiovascular: Regular Rate, Rhythm, No Edema, No Gallop, No JVD, No Murmur, Normal Peripheral Pulses Peripheral Pulses: 2+ Dorsalis Pedis (R), 2+ Left Dors-Pedis (L) Gastrointestinal: non tender, soft Extremity: Other (right second digit with black eschar at tip about half width of toe, remaining toes with fairly normal coloring) Neurologic/Psychiatric: Alert, Oriented x3, No Motor/Sensory Deficits, Normal 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, 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 Skin: Normal Color, Warm/Dry Results Lab Laboratory Tests 12/23/18 13:15: Vancomycin Level Trough 12.4 Microbiology 12/21/18 Blood Culture - Preliminary, Resulted No growth 12/21/18 Urine Culture - Final, Complete Escherichia coli 12/21/18 Gram Stain - Final, Resulted 12/21/18 Wound Culture - Preliminary, Resulted Staphylococcus aureus Mixed Bacterial Taya Assessment/Plan Assessment/Plan Assessment/Plan PICC line insertion with administration of vancomycin for osteomyelitis right second toe dry gangrene/osteomyelitis patient does not want amputation of toe if can avoid it and would like to continue medical management. discussed with pharmacy and best regimen would likely be Rocephin 2 grams and Vancomycin pharmacy to dose daily for 6 weeks. i still do not see any purulent material around this and feel it could be managed conservatively. If the wound changes would recommend reevaluation and likely amputation at that time. no surgical intervention at this time, will follow. Clinical Quality Measures DVT/VTE Risk/Contraindication: Risk Factor Score Per Nursin RFS Level Per Nursing on Admit: 4+=Very High HERNANDEZ MAGUIRE DO 12/23/182040: Subjective Subjective/Events-last exam patient feeling better. She's not having as much pain in the right second toe. No purulent drainage. patient still not wanting amputation and wanting conservative management. no other complaints at this time. Denies any nausea vomiting fever sweats chills shortness of breath or chest pain. Objective Exam General Appearance: No Apparent Distress HEENT: PERRL/EOMI Neck: Normal Inspection Respiratory: Chest Non Tender, No Accessory Muscle Use, No Respiratory Distress Cardiovascular: Regular Rate, Rhythm Gastrointestinal: non tender, soft Extremity: Other (right second digit with black eschar at tip about half width of toe, remaining toes with fairly normal coloring,minimal purplish hue, no fluctuance) Skin: Normal Color, Warm/Dry Assessment/Plan Assessment/Plan Assessment/Plan Right second toe dry gangrene/osteomyelitis. Patient wants to continue conservative management. Patient getting PICC line today and recommendation of Rocephin and vancomycin for a total of 6 weeks. If any changes patient understands may need amputation. Supervisory-Addendum Brief Verification & Attestation Participated in pt care: history, MDM, physical Personally performed: exam, history, MDM, supervision of care Care discussed with: Medical Student Procedures: n/a Results interpretation: Verified all documentation Verification and Attestation of Medical Student E/M Service A medical student performed and documented this service in my presence. I re viewed and verified all information documented by the medical student and made modifications to such information, when appropriate. I personally performed the physical exam and medical decision making. Hernandez Maguire, Dec 23, 2018,20:40 TATIANA MORTON STUDGRACE Dec 23, 2018 17:38 HERNANDEZ MAGUIRE DO Dec 23, 2018 20:41
== END 2018-12-23 13:00 | disposition home or self-care (01) ==
LOC: EDUNIT# 09:49 → ER 09:50 → 4TH 13:47 → INTOOBSV 13:47 → UNDOADMOB 13:47 → 4TH 14:20 → UNDODISOB 12-23 17:45
PROVIDERS: ADMIT Family Medicine; ATTEND Family Medicine
DX: M86.9 Osteomyelitis, unspecified (principal); A41.9 Sepsis, unspecified organism; M1A.9XX0 Chronic gout, unspecified, without tophus (tophi); M25.511 Pain in right shoulder; I25.10 Atherosclerotic heart disease of native coronary artery without angina pectoris; I82.3 Embolism and thrombosis of renal vein; I95.9 Hypotension, unspecified; G62.9 Polyneuropathy, unspecified; E78.00 Pure hypercholesterolemia, unspecified; M19.90 Unspecified osteoarthritis, unspecified site; F41.8 Other specified anxiety disorders; N39.0 Urinary tract infection, site not specified; B96.20 Unspecified Escherichia coli [E. coli] as the cause of diseases classified elsewhere; N17.9 Acute kidney failure, unspecified; F17.210 Nicotine dependence, cigarettes, uncomplicated; Z79.82 Long term (current) use of aspirin; Z79.891 Long term (current) use of opiate analgesic; Z79.899 Other long term (current) drug therapy; Z90.89 Acquired absence of other organs; Z92.21 Personal history of antineoplastic chemotherapy; Z92.3 Personal history of irradiation; Z90.710 Acquired absence of both cervix and uterus
CPT/HCPCS: 36415; 36569; 71045; 73030; 73660; 76937; 80053; 80202; 81000; 83605; 84550; 85007; 85027; 85610; 85730; 86141; 87040; 87070; 87077; 87088; 87186; 87205; 96361; 96365; 96375; G0378

== ENCOUNTER 2018-12-25 10:57 | Emergency (ER) | payer MEDICARE ==
[~2018-12-25] VITALS: Ht 160 cm; Wt 81.2 kg
[~2018-12-25 10:57] MED LIST changes: +AMLO10TA7 PO; +CEFT2VIA12 IV; +MULT1TAB69 PO; +VANC1VIA IV
--- NOTE | 2018-12-25 10:57 | NUR ---
PT CAME FROM DAY SURG WITH IV VANCOMYCIN INFUSION. PER MOOSE ZELAYA, PT HAD ALREADY RECIEVED DOSE OF IV ROCEPHIN PRIOR TO VANC.
--- NOTE | 2018-12-25 11:16 | ED General ---
General Chief Complaint: General Problems/Pain Stated Complaint: POSS SEPTIC Nursing Triage Note: PT BROUGHT IN BY WHEELCHAIR FROM DAY SURG FOR POSS SEPSIS. PT WAS D/C FROM HOSPITAL FEW DAYS AGO FOR UTI AND OSTEROMYELITIS. WAS RECIEVING OUTPT ANTIBIOTIC THERAPY. Nursing Sepsis Screen: No Definite Risk Source of Information: Patient Exam Limitations: No Limitations History of Present Illness Date Seen by Provider: Dec 25, 2018 Time Seen by Provider: 11:11 Initial Comments To ER from day surgery outpatient Center where she was receiving an IV Rocephin and vancomycin infusion. She is receiving Rocephin for urinary tract infection and vancomycin for osteomyelitis of the second toe on each foot. She was recently in the hospital inpatient and discharged, today while at the outpatient center she developed some nausea, shortness of breath and general weakness. No chest pain. No fevers. She does not wear oxygen at home but did feel better with supplemental oxygen though her oxygen saturation never dropped. Primary care Dr. Crzu. Timing/Duration: 1-3 Hours Severity: Moderate Associated Systoms: Nausea/Vomiting, Shortness of Air Allergies and Home Medications Allergies Coded Allergies: No Known Drug Allergies (Verified , 10/21/08) Home Medications Amlodipine Besylate 10 Mg Tablet, 10 MG PO DAILY Prescribed by: HERNAN CRUZ on 12/23/18 1304 Apixaban 5 Mg Tablet, 5 MG PO BID, (Reported) Aspirin 81 Mg Tab.chew, 81 MG PO DAILY, (Reported) Atorvastatin Calcium 20 Mg Tablet, 20 MG PO HS, (Reported) Ceftriaxone Sodium 2 Gm/Vial Soln, 2 GM IV DAILY Prescribed by: HERNAN CRUZ on 12/23/18 1304 Diphenoxylate HCl/Atropine 1 Each Tablet, 1 TAB PO Q4H PRN for DIARRHEA, (Reported) Gabapentin 100 Mg Capsule, 100 MG PO BID PRN for NERVE PAIN, (Reported) LAST FILLED #90 09-23-18 (CAN NOT AFFORD ALL THE TIME SO TRIES TO SPREAD IT OUT) Hydrocodone/Acetaminophen 1 Each Tablet, 1 TAB PO TID PRN for PAIN-MODERATE, (Reported) Hydroxychloroquine Sulfate 200 Mg Tablet, 400 MG PO DAILY, (Reported) TAKES 2 (200MG) TABLETS Metoprolol Succinate 50 Mg Tab.er.24h, 50 MG PO DAILY, (Reported) Multivitamin 1 Each Tablet, 1 TAB PO DAILY, (Reported) Ondansetron HCl 4 Mg Tablet, 4 MG PO Q6H PRN for NAUSEA/VOMITING-1ST LINE, (Reported) Potassium Chloride 20 Meq Tablet.er, 20 MEQ PO DAILY Prescribed by: YUDI MORRISON on 12/25/18 1241 Prednisone 10 Mg Tab, 10 MG PO DAILY, (Reported) Vancomycin HCl 1 Gm Vial, 0 IV DAILY Pharmacy to dose Prescribed by: HERNAN CRUZ on 12/23/18 1304 Vilazodone Hydrochloride 20 Mg Tablet, 20 MG PO DAILY, (Reported) Patient Home Medication List Home Medication List Reviewed: Yes Review of Systems Review of Systems Constitutional: see HPI; No chills EENTM: see HPI Respiratory: see HPI, short of breath Cardiovascular: no symptoms reported Genitourinary: no symptoms reported Musculoskeletal: no symptoms reported Skin: no symptoms reported Psychiatric/Neurological: No Symptoms Reported Hematologic/Lymphatic: No Symptoms Reported Immunological/Allergic: no symptoms reported Past Dcwkmys-Hlducz-Ajblsq Hx Patient Social History Alcohol Use: Denies Use Recreational Drug Use: No Smoking Status: Current Everyday Smoker Type Used: Cigarettes 2nd Hand Smoke Exposure: Yes Recent Foreign Travel: No Contact w/Someone Who Travel: No Recent Infectious Disease Expo: No Recent Hopitalizations: No (CVA 4-19) Physical Abuse: No Sexual Abuse: No Immunizations Up To Date PED Vaccines UTD: No Date of Pneumonia Vaccine: Dec 22, 2008 Date of Influenza Vaccine: Dec 21, 2016 Seasonal Allergies Seasonal Allergies: No Past Medical History Surgeries: Yes Abdominal, Adenoidectomy, Cardiac, Gallbladder, Hysterectomy, Oophorectomy, Orthopedic, Tonsillectomy Respiratory: No Pneumonia Currently Using CPAP: No Currently Using BIPAP: No Cardiac: Yes (history of aortic thrombus) Coronary Artery Disease, High Cholesterol, Hypertension Neurological: Yes Neuropathy, Stroke 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 Disorders: Yes (HX OF VULVAR CA--MODIFIED RADICAL VULVECTOMY 1991) 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 Disorders: 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 No Pertinent Family Hx Physical Exam-Suspected Sepsis Physical Exam Vital Signs Vital Signs - First Documented 12/25/18 10:57 Temp 37.8 Pulse 92 Resp 14 B/P (MAP) 189/122 (144) Pulse Ox 100 O2 Delivery Nasal Cannula O2 Flow Rate 2.00 Capillary Refill : Less Than 3 Seconds Blood Pressure Mean: 144 Height, Weight, BMI Height: 5'0.00" Weight: 161lbs. 0oz. [id number]; 31.00 BMI Method:Stated General Appearance: No Apparent Distress, WD/WN, Other (alert and oriented pleasant transfers from wheelchair to bed with assist of 1. PICC line in the right upper arm with vancomycin infusing. She is not hypoxic 97% room air, heart rate 94, blood pressure 180/120.) Eyes: Bilateral Eye Normal Inspection, Bilateral Eye PERRL, Bilateral Eye EOMI HEENT: PERRL/EOMI, TMs Normal Neck: Full Range of Motion, Normal Inspection Respiratory: Normal Breath Sounds, No Accessory Muscle Use, No Respiratory Distress Cardiovascular: Regular Rate, Rhythm, Normal Peripheral Pulses Gastrointestinal: Normal Bowel Sounds, Non Tender, Soft Extremity: Normal Capillary Refill, Normal Inspection, Other (distal tip of the second toe on each foot has an area of ecchymosis/necrosis however this is very small and does not extend onto the foot, confined strictly to the toe. There is no cellulitis of the foot.) Neurologic/Psychiatric: Alert, Oriented x3 Skin: normal color, warm/dry, other Focused Exam Lactate Level 12/25/18 11:06: Lactic Acid Level 1.92 Lactic Acid Level Laboratory Tests Test 12/25/18 11:06 Lactic Acid Level 1.92 MMOL/L (0.50-2.00) Progress/Results/Core Measures Suspected Sepsis Recent Fever Within 48 Hours: No Infection Criteria Present: Documented Infection New/Unexplained Altered Menta: No Sepsis Screen: No Definite Risk SIRS Temperature: Pulse: 92 Respiratory Rate: 14 Laboratory Tests 12/25/18 11:06: White Blood Count 9.4 Blood Pressure 189 /122 Mean: 144 12/25/18 11:06: Lactic Acid Level 1.92 Laboratory Tests 12/25/18 11:06: Creatinine 1.25, INR Comment 1.1, Platelet Count 288, Total Bilirubin 0.4 Results/Orders Lab Results Laboratory Tests Test 12/25/18 10:20 12/25/18 11:06 Range/Units Urine Color YELLOW Urine Clarity CLEAR Urine pH 6 5-9 Urine Specific [place] 1.010 L 1.016-1.022 Urine Protein 1+ H NEGATIVE Urine Glucose (UA) NEGATIVE NEGATIVE Urine Ketones NEGATIVE NEGATIVE Urine Nitrite NEGATIVE NEGATIVE Urine Bilirubin NEGATIVE NEGATIVE Urine Urobilinogen NORMAL NORMAL MG/DL Urine Leukocyte Esterase 1+ H NEGATIVE Urine RBC (Auto) NEGATIVE NEGATIVE Urine RBC RARE /HPF Urine WBC 5-10 H /HPF Urine Squamous Epithelial Cells 5-10 /HPF Urine Crystals NONE /LPF Urine Bacteria TRACE /HPF Urine Casts NONE /LPF Urine Mucus NEGATIVE /LPF Urine Yeast FEW H /HPF Urine Culture Indicated YES White Blood Count 9.4 4.3-11.0 10^3/uL Red Blood Count 4.08 L 4.35-5.85 10^6/uL Hemoglobin 11.4 L 11.5-16.0 G/DL Hematocrit 35 35-52 % Mean Corpuscular Volume 87 80-99 FL Mean Corpuscular Hemoglobin 28 25-34 PG Mean Corpuscular Hemoglobin Concent 32 32-36 G/DL Red Cell Distribution Width 14.7 H 10.0-14.5 % Platelet Count 288 130-400 10^3/uL Mean Platelet Volume 10.7 H 7.4-10.4 FL Neutrophils (%) (Auto) 70 42-75 % Lymphocytes (%) (Auto) 17 12-44 % Monocytes (%) (Auto) 10 0-12 % Eosinophils (%) (Auto) 3 0-10 % Basophils (%) (Auto) 0 0-10 % Neutrophils # (Auto) 6.6 1.8-7.8 X 10^3 Lymphocytes # (Auto) 1.6 1.0-4.0 X 10^3 Monocytes # (Auto) 0.9 0.0-1.0 X 10^3 Eosinophils # (Auto) 0.3 0.0-0.3 10^3/uL Basophils # (Auto) 0.0 0.0-0.1 10^3/uL Prothrombin Time 14.2 12.2-14.7 SEC INR Comment 1.1 0.8-1.4 Sodium Level 144 135-145 MMOL/L Potassium Level 2.8 L 3.6-5.0 MMOL/L Chloride Level 110 H 98-107 MMOL/L Carbon Dioxide Level 20 L 21-32 MMOL/L Anion Gap 14 5-14 MMOL/L Blood Urea Nitrogen 7 7-18 MG/DL Creatinine 1.25 0.60-1.30 MG/DL Estimat Glomerular Filtration Rate 42 BUN/Creatinine Ratio 6 Glucose Level 83 70-105 MG/DL Lactic Acid Level 1.92 0.50-2.00 MMOL/L Calcium Level 8.9 8.5-10.1 MG/DL Corrected Calcium 9.5 8.5-10.1 MG/DL Total Bilirubin 0.4 0.1-1.0 MG/DL Aspartate Amino Transf (AST/SGOT) 15 5-34 U/L Alanine Aminotransferase (ALT/SGPT) 12 0-55 U/L Alkaline Phosphatase 70 40-136 U/L Troponin I < 0.028 <0.028 NG/ML B-Type Natriuretic Peptide 956.2 H <100.0 PG/ML Total Protein 6.2 L 6.4-8.2 GM/DL Albumin 3.3 3.2-4.5 GM/DL My Orders Orders - YUDI MORRISON APRN Cbc With Automated Diff (12/25/18 11:09) Comprehensive Metabolic Panel (12/25/18 11:09) Blood Culture (12/25/18 11:09) Lactic Acid Analyzer (12/25/18 11:09) Ua Culture If Indicated (12/25/18 11:09) Chest 1 View, Ap/Pa Only (12/25/18 11:09) Ed Iv/Invasive Line Start (12/25/18 11:09) Ekg Tracing (12/25/18 11:09) Troponin I (12/25/18 11:09) BNP (12/25/18 11:09) Ondansetron Injection (Zofran Injectio (12/25/18 11:30) Metoprolol Tartrate Injection (Lopressor (12/25/18 11:30) Urine Culture (12/25/18 10:20) Potassium Cl 10meq/50ml Ivpb (Kcl 10 Meq (12/25/18 12:00) Ns Iv 500 Ml (Sodium Chloride 0.9%) (12/25/18 12:00) Consult General Surgery (12/25/18 12:35) Magnesium Oxide Tablet (Mag Ox Tablet) (12/25/18 12:45) Potassium Chloride (Tablet) (Klor Con Ta (12/25/18 12:45) Potassium Cl 10meq/50ml Ivpb (Kcl 10 Meq (12/25/18 12:45) Furosemide Injection (Lasix Injection) (12/25/18 12:45) Protime With Inr (12/25/18 12:43) Medications Given in ED Current Medications Medications Dose Ordered Sig/Kenneth Route Start Time Stop Time Status Last Admin Dose Admin Metoprolol Tartrate 5 mg ONCE ONCE IV 12/25/18 11:30 12/25/18 11:31 DC 12/25/18 11:55 5 MG Ondansetron HCl 4 mg ONCE ONCE IVP 12/25/18 11:30 12/25/18 11:31 DC 12/25/18 11:49 4 MG Vital Signs/I&O 12/25/18 10:57 Temp 37.8 Pulse 92 Resp 14 B/P (MAP) 189/122 (144) Pulse Ox 100 O2 Delivery Nasal Cannula O2 Flow Rate 2.00 Capillary Refill : Less Than 3 Seconds Blood Pressure Mean: 144 Diagnostic Imaging Diagonstic Imaging: Xray Comments NAME: EUGENIO PARKER [facility] REC#: [id number] PT STATUS: REG ER : 1945 PHYSICIAN: YUDI MORRISON APRN ADMIT DATE: 12/25/18/ER Draft Date of Exam:12/25/18 CHEST 1 VIEW, AP/PA ONLY Patient History: Hypertension, tachycardia, hypoxia. Technique: Single frontal view of the chest Comparison: 12/23/2018 FINDINGS: The lung volumes are normal. No focal consolidation is seen. No large pleural effusion or pneumothorax is seen. The cardiomediastinal silhouette is normal in size and contour. No acute osseous abnormality is seen. There is aortic atherosclerosis. There is a chronic right rotator cuff injury. The tip of the right PICC line projects over the SVC. IMPRESSION: No acute pulmonary abnormality seen. Dictated on workstation # [id number] Dict: 12/25/18 1212 Trans: 12/25/18 1222 [facility] [id number] Interpreted by: JEANNETTE GALLEGOS MD Electronically signed by: Departure Communication (Admissions) Patient would prefer to go home, after replacing her potassium this is certainly reasonable. Dr. Andrez Mosquera both seen the patient in the emergency room and agree with this plan. Impression Primary Impression: Hypokalemia Additional Impressions: Osteomyelitis of toe Urinary tract infection Disposition: ADMITTED INPATIENT Condition: Stable Admissions Decision to Admit Reason: Admit from ER (General) Decision to Admit/Date: Dec 25, 2018 Time/Decision to Admit Time: 12:25 Departure-Patient Inst. Decision time for Depature: 12:40 Referrals: [facility] (PCP) Primary Care Physician CHRISTA GLORIA (Family) Primary Care Physician Patient Instructions: Hypokalemia, Osteomyelitis (DC) Add. Discharge Instructions: 1. Take the potassium and magnesium supplements starting this evening, return to ER for any concerns. All discharge instructions reviewed with patient and/or family. Voiced understanding. Scripts Potassium Chloride (Potassium Chloride) 20 Meq Tablet.er 20 MEQ PO DAILY, #5 TAB Prov: YUDI MORRISON APRN 12/25/18 YUDI MORRISON APRN Dec 25, 2018 11:16
[2018-12-25 11:20] LABS: BASOPHILS % (AUTO) 0 % (0-10); EOSINOPHILS # (AUTO) 0.3 10^3/uL (0.0-0.3); EOSINOPHILS % (AUTO) 3 % (0-10); HEMATOCRIT 35 % (35-52); HEMOGLOBIN 11.4 G/DL (11.5-16.0); LYMPHOCYTES # (AUTO) 1.6 X 10^3 (1.0-4.0); LYMPHOCYTES % (AUTO) 17 % (12-44); MEAN CORPUSCULAR HEMOGLOBIN 28 PG (25-34); MEAN CORPUSCULAR HGB CONC 32 G/DL (32-36); MEAN CORPUSCULAR VOLUME 87 FL (80-99); MEAN PLATELET VOLUME 10.7 FL (7.4-10.4); MONOCYTES # (AUTO) 0.9 X 10^3 (0.0-1.0); MONOCYTES % (AUTO) 10 % (0-12); NEUTROPHILS # (AUTO) 6.6 X 10^3 (1.8-7.8); NEUTROPHILS % (AUTO) 70 % (42-75); PLATELET COUNT 288 10^3/uL (130-400); RED CELL DISTRIBUTION WIDTH 14.7 % (10.0-14.5); WHITE BLOOD COUNT 9.4 10^3/uL (4.3-11.0)
[2018-12-25] MEDS ORDERED: meTOprolol 5 MG/5 ML (LOPRESSOR) VIAL IV ONE (11:30)
[2018-12-25] MEDS ORDERED: ONDANSETRON 4 MG/2 ML (SDV) Z0FRAN IVP ONE (11:30)
[2018-12-25 11:34] LABS: BILIRUBIN,URINE NEGATIVE (NEGATIVE); CLARITY,URINE CLEAR; COLOR,URINE YELLOW; GLUCOSE, URINE (UA) NEGATIVE (NEGATIVE); KETONES,URINE NEGATIVE (NEGATIVE); LEUKOCYTE ESTERASE ,URINE 1+ (NEGATIVE); NITRITE,URINE NEGATIVE (NEGATIVE); PH,URINE 6 (5-9); PROTEIN,URINE 1+ (NEGATIVE); UROBILINOGEN,URINE NORMAL (NORMAL)
[2018-12-25 11:38] LABS: ALANINE AMINOTRANSFERASE 12 U/L (0-55); ALBUMIN 3.3 GM/DL (3.2-4.5); ALKALINE PHOSPHATASE 70 U/L (40-136); BILIRUBIN,TOTAL 0.4 MG/DL (0.1-1.0); BUN/CREATININE RATIO 6; CALCIUM 8.9 MG/DL (8.5-10.1); CARBON DIOXIDE 20 MMOL/L (21-32); CHLORIDE 110 MMOL/L (98-107); CREATININE SERUM 1.25 MG/DL (0.60-1.30); GFR ESTIMATED 42; GLUCOSE 83 MG/DL (70-105); POTASSIUM 2.8 MMOL/L (3.6-5.0); SODIUM 144 MMOL/L (135-145); TOTAL PROTEIN 6.2 GM/DL (6.4-8.2)
[2018-12-25 11:42] LABS: BACTERIA,URINE TRACE /HPF; RBC,URINE RARE /HPF; YEAST,URINE FEW /HPF
[2018-12-25] MEDS ORDERED: NS IV 500 ML 500 ML IV SCH (12:00)
[2018-12-25] MEDS ORDERED: POTASSIUM CL 10MEQ/50ML IVPB 50 ML IV SCH (12:00)
--- NOTE | 2018-12-25 12:22 | Diagnostic Imaging Report ---
Patient History: Hypertension, tachycardia, hypoxia. Technique: Single frontal view of the chest Comparison: 12/23/2018 FINDINGS: The lung volumes are normal. No focal consolidation is seen. No large pleural effusion or pneumothorax is seen. The cardiomediastinal silhouette is normal in size and contour. No acute osseous abnormality is seen. There is aortic atherosclerosis. There is a chronic right rotator cuff injury. The tip of the right PICC line projects over the SVC. IMPRESSION: No acute pulmonary abnormality seen. Dictated by: Dictated on workstation # [id number]
[2018-12-25] MEDS ORDERED: POTA-51 PO (12:41)
[2018-12-25] MEDS ORDERED: KCL 10 MEQ TAB (MICRO K) PO ONE (12:45)
[2018-12-25] MEDS ORDERED: FUROSEMIDE 40 MG/4 ML INJ (LASIX) IVP ONE (12:45)
[2018-12-25] MEDS ORDERED: MAGNESIUM OXIDE (MAG-OX)400 MG TAB PO ONE (12:45)
--- NOTE | 2018-12-25 12:48 | Consultation - Surgery ---
History of Present Illness History of Present Illness Patient Consulted On(adams/time) 12/25/18 12:44 Date Seen by Provider: Dec 25, 2018 Time Seen by Provider: 12:40 History of Present Illness surgical consult for osteomyelitis of right second toe Patient known to me from recent inpatient stay. Patient was sent to ER from day surgery after getting IV antibiotics developed some nausea, shortness of breath and general weakness. Known from recent hospital stay. She denies fever at this time. Her feet feel better than they were. She is feeling better now that she is in the ER. She has no new complaints. Denies n/v fever sweats chills shortness of breath or chest pain. Allergies and Home Medications Allergies Coded Allergies: No Known Drug Allergies (Verified , 10/21/08) Home Medications Amlodipine Besylate 10 Mg Tablet, 10 MG PO DAILY Prescribed by: HERNAN CRUZ on 12/23/18 1304 Apixaban 5 Mg Tablet, 5 MG PO BID, (Reported) Aspirin 81 Mg Tab.chew, 81 MG PO DAILY, (Reported) Atorvastatin Calcium 20 Mg Tablet, 20 MG PO HS, (Reported) Ceftriaxone Sodium 2 Gm/Vial Soln, 2 GM IV DAILY Prescribed by: HERNAN CRUZ on 12/23/18 1304 Diphenoxylate HCl/Atropine 1 Each Tablet, 1 TAB PO Q4H PRN for DIARRHEA, (Reported) Gabapentin 100 Mg Capsule, 100 MG PO BID PRN for NERVE PAIN, (Reported) LAST FILLED #90 09-23-18 (CAN NOT AFFORD ALL THE TIME SO TRIES TO SPREAD IT OUT) Hydrocodone/Acetaminophen 1 Each Tablet, 1 TAB PO TID PRN for PAIN-MODERATE, (Reported) Hydroxychloroquine Sulfate 200 Mg Tablet, 400 MG PO DAILY, (Reported) TAKES 2 (200MG) TABLETS Metoprolol Succinate 50 Mg Tab.er.24h, 50 MG PO DAILY, (Reported) Multivitamin 1 Each Tablet, 1 TAB PO DAILY, (Reported) Ondansetron HCl 4 Mg Tablet, 4 MG PO Q6H PRN for NAUSEA/VOMITING-1ST LINE, (Reported) Potassium Chloride 20 Meq Tablet.er, 20 MEQ PO DAILY Prescribed by: YUDI MORRISON on 12/25/18 1241 Prednisone 10 Mg Tab, 10 MG PO DAILY, (Reported) Vancomycin HCl 1 Gm Vial, 0 IV DAILY Pharmacy to dose Prescribed by: HERNAN RCUZ on 12/23/18 1304 Vilazodone Hydrochloride 20 Mg Tablet, 20 MG PO DAILY, (Reported) Patient Home Medication List Home Medication List Reviewed: Yes Past Vucjdbt-Rnkxnt-Tjkuph Hx Patient Social History Alcohol Use: Denies Use Recreational Drug Use: No Smoking Status: Current Everyday Smoker Type Used: Cigarettes 2nd Hand Smoke Exposure: Yes Recent Foreign Travel: No Contact w/Someone Who Travel: No Recent Infectious Disease Expo: No Recent Hopitalizations: No (CVA 4-19) Immunizations Up To Date PED Vaccines UTD: No Date of Pneumonia Vaccine: Dec 22, 2008 Date of Influenza Vaccine: Dec 21, 2016 Seasonal Allergies Seasonal Allergies: No Surgeries History of Surgeries: Yes Surgeries: Abdominal, Adenoidectomy, Cardiac, Gallbladder, Hysterectomy, Oophorectomy, Orthopedic, Tonsillectomy Respiratory History of Respiratory Disorde: No Respiratory Disorders: Pneumonia Cardiovascular History of Cardiac Disorders: Yes (history of aortic thrombus) Cardiac Disorders: Coronary Artery Disease, High Cholesterol, Hypertension Neurological History of Neurological Disord: Yes Neurological Disorders: Neuropathy, Stroke 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 System Hx 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 Disorders: Yes (HX OF VULVAR CA--MODIFIED RADICAL VULVECTOMY 1991) Sexually Transmitted Disease: No HIV/AIDS: No 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 Genitourinary History of Genitourinary Disor: Yes (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) Gastrointestinal History of Gastrointestinal Di: Yes Gastrointestinal Disorders: Chronic Diarrhea, Gall Bladder Disease Musculoskeletal History of Musculoskeletal Dis: Yes Musculoskeletal Disorders: Arthritis Endocrine History of Endocrine Disorders: Yes Endocrine Disorders: Lupus HEENT History of HEENT Disorders: No Loss of Vision: Left Hearing Impairment: Denies Cancer History of Cancer: Yes Cancer: Cervical, Vaginal Psychosocial History of Psychiatric Problem: Yes Behavioral Health Disorders: Anxiety Integumentary History of Skin or Integumenta: No Blood Transfusions History of Blood Disorders: No Adverse Reaction to a Blood Tr: No Family Medical History Significant Family History: No Pertinent Family Hx Family Medial History: Patient reports no known family medical history. Review of Systems-General Constitutional: see HPI EENTM: no symptoms reported Respiratory: no symptoms reported Cardiovascular: no symptoms reported Gastrointestinal: no symptoms reported Genitourinary: no symptoms reported Musculoskeletal: no symptoms reported Skin: no symptoms reported Psychiatric/Neurological: No Symptoms Reported Physical Exam-General Problems Physical Exam Vital Signs Vital Signs - First Documented 12/25/18 10:57 Temp 37.8 Pulse 92 Resp 14 B/P (MAP) 189/122 (144) Pulse Ox 100 O2 Delivery Nasal Cannula O2 Flow Rate 2.00 Capillary Refill : Less Than 3 Seconds General Appearance: WD/WN, no apparent distress HEENT: PERRL/EOMI, normal ENT inspection Neck: non-tender, full range of motion Respiratory: chest non-tender, no respiratory distress, no accessory muscle use Cardiovascular: regular rate, rhythm Gastrointestinal: non tender, soft, no organomegaly Rectal: deferred Back: no CVA tenderness Extremities: other (distal portion of toes with purple hue, right second toe with black eschar distal portion, unchanged) Neurologic/Psychiatric: secret service agent 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 as tested, alert, normal mood/affect, oriented x 3 Skin: other (changes of the distal toes as noted above) Lymphatic: no adenopathy Data Review Labs Laboratory Tests 12/25/18 10:20: Urine Color YELLOW, Urine Clarity CLEAR, Urine pH 6, Urine Specific [place] 1.010L, Urine Protein 1+H, Urine Glucose (UA) NEGATIVE, Urine Ketones NEGATIVE, Urine Nitrite NEGATIVE, Urine Bilirubin NEGATIVE, Urine Urobilinogen NORMAL, Urine Leukocyte Esterase 1+H, Urine RBC (Auto) NEGATIVE, Urine RBC RARE, Urine WBC 5-10H, Urine Squamous Epithelial Cells 5-10, Urine Crystals NONE, Urine Bacteria TRACE, Urine Casts NONE, Urine Mucus NEGATIVE, Urine Yeast FEWH, Urine Culture Indicated YES 12/25/18 11:06: White Blood Count 9.4, Red Blood Count 4.08L, Hemoglobin 11.4L, Hematocrit 35, Mean Corpuscular Volume 87, Mean Corpuscular Hemoglobin 28, Mean Corpuscular Hemoglobin Concent 32, Red Cell Distribution Width 14.7H, Platelet Count 288, Mean Platelet Volume 10.7H, Neutrophils (%) (Auto) 70, Lymphocytes (%) (Auto) 17, Monocytes (%) (Auto) 10, Eosinophils (%) (Auto) 3, Basophils (%) (Auto) 0, Neutrophils # (Auto) 6.6, Lymphocytes # (Auto) 1.6, Monocytes # (Auto) 0.9, Eosinophils # (Auto) 0.3, Basophils # (Auto) 0.0, Sodium Level 144, Potassium Level 2.8L, Chloride Level 110H, Carbon Dioxide Level 20L, Anion Gap 14, Blood Urea Nitrogen 7, Creatinine 1.25, Estimat Glomerular Filtration Rate 42, BUN/Creatinine Ratio 6, Glucose Level 83, Lactic Acid Level 1.92, Calcium Level 8.9, Corrected Calcium 9.5, Total Bilirubin 0.4, Aspartate Amino Transf (AST/SGOT) 15, Alanine Aminotransferase (ALT/SGPT) 12, Alkaline Phosphatase 70, Troponin I < 0.028, B-Type Natriuretic Peptide 956.2H, Total Protein 6.2L, Albumin 3.3 Assessment/Plan Assessment/Plan Assessment/Plan Osteomyelitis of right second toe, dry gangrene Continue IV Abx. will continue conservative measurement at this time, no need for surgical intervention. Ok to GA home from surgical standpoint. HERNANDEZ PEDERSON DO Dec 25, 2018 12:47
[2018-12-25] MEDS: POTASSIUM CL 10MEQ/50ML IVPB 50 ML IV SCH ×2 (12:49→12:50)
[2018-12-25 12:56] LABS: INR 1.1 (0.8-1.4); PROTHROMBIN TIME PATIENT 14.2 SEC (12.2-14.7)
[2018-12-25 14:11] VITALS: BP 184/81
== END 2018-12-25 14:11 | disposition other institution (70) ==
LOC: ER 11:02 → EDUNIT# 11:02 → ER 14:11
DX: E87.6 Hypokalemia (principal); M86.9 Osteomyelitis, unspecified; N39.0 Urinary tract infection, site not specified; I10 Essential (primary) hypertension; E78.00 Pure hypercholesterolemia, unspecified; I25.10 Atherosclerotic heart disease of native coronary artery without angina pectoris; G62.9 Polyneuropathy, unspecified; F41.9 Anxiety disorder, unspecified; F17.210 Nicotine dependence, cigarettes, uncomplicated; Z85.41 Personal history of malignant neoplasm of cervix uteri; Z85.44 Personal history of malignant neoplasm of other female genital organs; Z86.718 Personal history of other venous thrombosis and embolism; Z86.73 Personal history of transient ischemic attack (TIA), and cerebral infarction without residual deficits; Z90.89 Acquired absence of other organs; Z90.710 Acquired absence of both cervix and uterus; Z87.39 Personal history of other diseases of the musculoskeletal system and connective tissue; Z79.01 Long term (current) use of anticoagulants; Z79.82 Long term (current) use of aspirin; Z79.52 Long term (current) use of systemic steroids
CPT/HCPCS: 36415; 71045; 80053; 81000; 83605; 83880; 84484; 85025; 85610; 87040; 87088; 93005

== ENCOUNTER → 2019-01-12 | Outpatient (CLI) | payer MEDICARE ==
[~2019-01-12] MED LIST changes: +POTA-51 PO
== END ==
LOC: WOUNDCARE 13:28
PROVIDERS: ATTEND Surgery
DX: L97.512 Non-pressure chronic ulcer of other part of right foot with fat layer exposed (principal); L97.522 Non-pressure chronic ulcer of other part of left foot with fat layer exposed; I70.235 Atherosclerosis of native arteries of right leg with ulceration of other part of foot; I70.245 Atherosclerosis of native arteries of left leg with ulceration of other part of foot; M32.19 Other organ or system involvement in systemic lupus erythematosus; T65.222A Toxic effect of tobacco cigarettes, intentional self-harm, initial encounter; N18.4 Chronic kidney disease, stage 4 (severe)
CPT/HCPCS: 99212

== ENCOUNTER → 2019-01-22 | Outpatient (CLI) | payer MEDICARE ==
[~2019-01-22] MED LIST changes: -METO-370 PO; +METO50TA7 PO
== END ==
LOC: WOUNDCARE 10:25
PROVIDERS: ATTEND Surgery
DX: L97.512 Non-pressure chronic ulcer of other part of right foot with fat layer exposed (principal); L97.522 Non-pressure chronic ulcer of other part of left foot with fat layer exposed; I70.235 Atherosclerosis of native arteries of right leg with ulceration of other part of foot; I70.245 Atherosclerosis of native arteries of left leg with ulceration of other part of foot; T65.222A Toxic effect of tobacco cigarettes, intentional self-harm, initial encounter; N18.4 Chronic kidney disease, stage 4 (severe); M32.19 Other organ or system involvement in systemic lupus erythematosus; I96 Gangrene, not elsewhere classified; F17.218 Nicotine dependence, cigarettes, with other nicotine-induced disorders
CPT/HCPCS: 99212

== ENCOUNTER → 2019-01-29 | Outpatient (CLI) | payer MEDICARE ==
[~2019-01-29] MED LIST changes: +METO-370 PO; -METO50TA7 PO
== END ==
LOC: WOUNDCARE 09:49
PROVIDERS: ATTEND Surgery
DX: L97.512 Non-pressure chronic ulcer of other part of right foot with fat layer exposed (principal); L97.522 Non-pressure chronic ulcer of other part of left foot with fat layer exposed; I70.235 Atherosclerosis of native arteries of right leg with ulceration of other part of foot; I70.245 Atherosclerosis of native arteries of left leg with ulceration of other part of foot; M32.19 Other organ or system involvement in systemic lupus erythematosus; T65.222A Toxic effect of tobacco cigarettes, intentional self-harm, initial encounter; N18.4 Chronic kidney disease, stage 4 (severe); I96 Gangrene, not elsewhere classified; F17.218 Nicotine dependence, cigarettes, with other nicotine-induced disorders
CPT/HCPCS: 99212

== ENCOUNTER → 2019-02-05 | Outpatient (CLI) | payer MEDICARE | LOC: WOUNDCARE 09:47 | PROVIDERS: ATTEND Surgery | DX: L97.512 Non-pressure chronic ulcer of other part of right foot with fat layer exposed (principal); L97.522 Non-pressure chronic ulcer of other part of left foot with fat layer exposed; I70.235 Atherosclerosis of native arteries of right leg with ulceration of other part of foot; I70.245 Atherosclerosis of native arteries of left leg with ulceration of other part of foot; N18.4 Chronic kidney disease, stage 4 (severe); M32.19 Other organ or system involvement in systemic lupus erythematosus; T65.222A Toxic effect of tobacco cigarettes, intentional self-harm, initial encounter; I96 Gangrene, not elsewhere classified; F17.218 Nicotine dependence, cigarettes, with other nicotine-induced disorders | CPT/HCPCS: 99213 ==

== ENCOUNTER → 2019-02-12 | Outpatient (CLI) | payer MEDICARE | LOC: WOUNDCARE 09:31 | PROVIDERS: ATTEND Surgery | DX: L97.512 Non-pressure chronic ulcer of other part of right foot with fat layer exposed (principal); I70.235 Atherosclerosis of native arteries of right leg with ulceration of other part of foot; N18.4 Chronic kidney disease, stage 4 (severe); M32.19 Other organ or system involvement in systemic lupus erythematosus; T65.222A Toxic effect of tobacco cigarettes, intentional self-harm, initial encounter; I96 Gangrene, not elsewhere classified; F17.218 Nicotine dependence, cigarettes, with other nicotine-induced disorders | CPT/HCPCS: 99212 ==

== ENCOUNTER 2019-03-04 10:26 | Outpatient (RCR) | payer MEDICARE ==
[2018-12-24] MEDS: cefTRIAXone 2,000 MG/SWFI 20 ML IV PUSH IV SCH ×2 (10:43)
[2018-12-24] MEDS: VANCOMYCIN 1250 MG/NS 250 ML IVPB IV SCH ×2 (10:48)
[2018-12-24] MEDS: CATHETER FLUSH 10 ML SYR IV PRN (12:05)
[2018-12-24 13:03] VITALS: BP 178/71
[2018-12-25 10:05] VITALS: BP 179/105
[2018-12-25] MEDS: cefTRIAXone 2,000 MG/SWFI 20 ML IV PUSH IV SCH ×2 (10:23)
[2018-12-25] MEDS: VANCOMYCIN 1250 MG/NS 250 ML IVPB IV SCH ×2 (10:31)
[2018-12-26] MEDS: cefTRIAXone 2,000 MG/SWFI 20 ML IV PUSH IV SCH ×2 (09:24)
[2018-12-26] MEDS: VANCOMYCIN 1250 MG/NS 250 ML IVPB IV SCH ×2 (09:29)
[2018-12-26 11:11] VITALS: BP 138/88
[2018-12-27] MEDS: CATHETER FLUSH 10 ML SYR IV PRN (09:03)
[2018-12-27] MEDS: cefTRIAXone 2,000 MG/SWFI 20 ML IV PUSH IV SCH ×2 (09:04)
[2018-12-27] MEDS: VANCOMYCIN 1250 MG/NS 250 ML IVPB IV SCH ×2 (09:11)
[2018-12-27 10:30] VITALS: BP 136/98
[2018-12-28] MEDS: CATHETER FLUSH 10 ML SYR IV PRN ×2 (10:15→10:35)
[2018-12-28] MEDS: cefTRIAXone 2,000 MG/SWFI 20 ML IV PUSH IV SCH ×2 (10:30)
[2018-12-28 10:46] VITALS: BP 138/69
[2018-12-28] MEDS: VANCOMYCIN 1250 MG/NS 250 ML IVPB IV SCH ×2 (11:07)
[2018-12-29] MEDS: CATHETER FLUSH 10 ML SYR IV PRN (10:14)
[2018-12-29] MEDS: cefTRIAXone 2,000 MG/SWFI 20 ML IV PUSH IV SCH ×2 (10:15)
[2018-12-29 10:25] VITALS: BP 121/66
[2018-12-29 10:58] LABS: CALCIUM 8.7 MG/DL (8.5-10.1); CREATININE SERUM 2.31 MG/DL (0.60-1.30)
[2018-12-29 11:18] LABS: VANCOMYCIN,TROUGH 28.7 UG/ML (10.0-20.0)
--- NOTE | 2018-12-29 11:40 | NUR ---
BMP AND VANCO TROUGH RESULTS FAXED TO DR CRUZ/[facility] AND PHONE REPORT CALLED TO Ena WHITE RN. ALSO NOTIFIED PHARMACY OF VANCO TROUGH RESULT OF 28.7. PER Vishal ROCHE, PHARMACIST, WILL HOLD VANCO DOSE TODAY, RECHECK TROUGH 12/30/18.
--- NOTE | 2018-12-29 11:55 | NUR ---
CALL RECEIVED FROM DR CRUZ. ORDER RECEIVED TO REPEAT BMP TOMORROW AND GIVE POTASSIUM CHLORIDE 40 MEQ PO TODAY PRIOR TO DISMISSAL.
[2018-12-29] MEDS: VANCOMYCIN 1250 MG/NS 250 ML IVPB IV SCH ×2 (12:03)
--- NOTE | 2018-12-29 13:10 | NUR ---
JUST NOW RECEIVED K-DUR FROM PHARMACY. GIVEN PO INSTRUCTED AND PT DISMISSED TO [facility].
[2018-12-30 10:55] VITALS: BP 126/72
[2018-12-30 11:31] LABS: CALCIUM 9.1 MG/DL (8.5-10.1); CREATININE SERUM 2.26 MG/DL (0.60-1.30); POTASSIUM 3.5 MMOL/L (3.6-5.0)
--- NOTE | 2018-12-30 11:51 | NUR ---
VANCOMYCIN TROUGH LEVEL 24.1 - CONTINUE TO HOLD DOSE
[2018-12-30] MEDS: cefTRIAXone 2,000 MG/SWFI 20 ML IV PUSH IV SCH ×2 (11:55)
--- NOTE | 2018-12-30 14:00 | NUR ---
BMP report faxed to [facility] Cardiac, Thoracic [facility] Vascular surgery per pt request et order rec'd from their clinic.
[2018-12-31] MEDS: CATHETER FLUSH 10 ML SYR IV PRN (10:22)
[2018-12-31] MEDS: cefTRIAXone 2,000 MG/SWFI 20 ML IV PUSH IV SCH ×2 (10:22)
[2018-12-31 10:40] LABS: CREATININE SERUM 2.3 MG/DL (0.60-1.30); POTASSIUM 3.8 MMOL/L (3.6-5.0)
--- NOTE | 2018-12-31 10:54 | NUR ---
CONTACTED DR CRUZ ABOUT ELEVATED TROUGH LEVELS AND SLOW CLEARANCE OF VANCOMYCIN, ALONG WITH LAST SET OF CULTURES IS MSSA. OK TO STOP VANCOMYCIN. VANCOMYCIN WILL BE IN PATIENT FOR A LONG TIME DUE TO SLOW CLEARANCE. LAST LEVEL WAS 20 AND ESTIMATED T1/2 IS 89 HOURS.
[2018-12-31 10:58] VITALS: BP 119/80
[2019-01-01] MEDS: CATHETER FLUSH 10 ML SYR IV PRN (10:18)
[2019-01-01] MEDS: cefTRIAXone 2,000 MG/SWFI 20 ML IV PUSH IV SCH ×2 (10:18)
[2019-01-01 10:26] VITALS: BP 143/71
[2019-01-02 09:00] VITALS: BP 148/75
[2019-01-02] MEDS: cefTRIAXone 2,000 MG/SWFI 20 ML IV PUSH IV SCH ×2 (09:08)
[2019-01-03 08:52] VITALS: BP 158/64
[2019-01-03] MEDS: cefTRIAXone 2,000 MG/SWFI 20 ML IV PUSH IV SCH ×2 (08:58)
[2019-01-04 10:40] VITALS: BP 132/65
[2019-01-04] MEDS: CATHETER FLUSH 10 ML SYR IV PRN (10:40)
[2019-01-04] MEDS: cefTRIAXone 2,000 MG/SWFI 20 ML IV PUSH IV SCH ×2 (10:40)
[2019-01-05 10:20] VITALS: BP 172/71
[2019-01-05] MEDS: cefTRIAXone 2,000 MG/SWFI 20 ML IV PUSH IV SCH ×2 (10:32)
[2019-01-05 11:16] LABS: HEMOGLOBIN 10.3 G/DL (11.5-16.0); MEAN PLATELET VOLUME 10.8 FL (7.4-10.4); RED CELL DISTRIBUTION WIDTH 14.7 % (10.0-14.5); WHITE BLOOD COUNT 11.4 10^3/uL (4.3-11.0)
[2019-01-05 11:39] LABS: ALBUMIN 3.3 GM/DL (3.2-4.5); BILIRUBIN,TOTAL 0.2 MG/DL (0.1-1.0); CALCIUM 8.6 MG/DL (8.5-10.1); CREATININE SERUM 2.03 MG/DL (0.60-1.30); POTASSIUM 3.4 MMOL/L (3.6-5.0); TOTAL PROTEIN 5.9 GM/DL (6.4-8.2)
[2019-01-06] MEDS: CATHETER FLUSH 10 ML SYR IV PRN ×2 (10:20→10:29)
[2019-01-06] MEDS: cefTRIAXone 2,000 MG/SWFI 20 ML IV PUSH IV SCH ×2 (10:22)
[2019-01-06 10:31] VITALS: BP 142/73
[2019-01-07] MEDS: cefTRIAXone 2,000 MG/SWFI 20 ML IV PUSH IV SCH ×2 (10:17)
[2019-01-07] MEDS: CATHETER FLUSH 10 ML SYR IV PRN (10:18)
[2019-01-07 10:38] VITALS: BP 154/82
[2019-01-08] MEDS: cefTRIAXone 2,000 MG/SWFI 20 ML IV PUSH IV SCH ×2 (10:21)
[2019-01-08 10:24] VITALS: BP 141/71
[2019-01-08] MEDS: CATHETER FLUSH 10 ML SYR IV PRN (10:24)
[2019-01-09] MEDS: cefTRIAXone 2,000 MG/SWFI 20 ML IV PUSH IV SCH ×2 (09:23)
[2019-01-09] MEDS: CATHETER FLUSH 10 ML SYR IV PRN (09:23)
[2019-01-09 09:29] VITALS: BP 149/73
[2019-01-10] MEDS: cefTRIAXone 2,000 MG/SWFI 20 ML IV PUSH IV SCH ×2 (09:24)
[2019-01-10] MEDS: CATHETER FLUSH 10 ML SYR IV PRN (09:24)
[2019-01-10 09:30] VITALS: BP 142/73
[2019-01-11] MEDS: cefTRIAXone 2,000 MG/SWFI 20 ML IV PUSH IV SCH ×2 (10:43)
[2019-01-11 10:45] VITALS: BP 137/73
[2019-01-11] MEDS: CATHETER FLUSH 10 ML SYR IV PRN (10:45)
[2019-01-12] MEDS: cefTRIAXone 2,000 MG/SWFI 20 ML IV PUSH IV SCH ×2 (12:27)
[2019-01-12] MEDS: CATHETER FLUSH 10 ML SYR IV PRN (12:28)
[2019-01-12 12:30] VITALS: BP 143/86
[2019-01-13] MEDS: cefTRIAXone 2,000 MG/SWFI 20 ML IV PUSH IV SCH ×2 (10:15)
[2019-01-13] MEDS: CATHETER FLUSH 10 ML SYR IV PRN (10:16)
[2019-01-13 10:25] VITALS: BP 144/74
[2019-01-14] MEDS: cefTRIAXone 2,000 MG/SWFI 20 ML IV PUSH IV SCH ×2 (10:34)
[2019-01-14] MEDS: CATHETER FLUSH 10 ML SYR IV PRN (10:34)
[2019-01-14 10:45] VITALS: BP 143/74
[2019-01-15] MEDS: cefTRIAXone 2,000 MG/SWFI 20 ML IV PUSH IV SCH ×2 (10:13)
[2019-01-15] MEDS: CATHETER FLUSH 10 ML SYR IV PRN (10:14)
[2019-01-15 10:22] VITALS: BP 161/95
[2019-01-16] MEDS: CATHETER FLUSH 10 ML SYR IV PRN (09:13)
[2019-01-16] MEDS: cefTRIAXone 2,000 MG/SWFI 20 ML IV PUSH IV SCH ×2 (09:13)
[2019-01-16 09:20] VITALS: BP 144/82
[2019-01-17] MEDS: cefTRIAXone 2,000 MG/SWFI 20 ML IV PUSH IV SCH ×2 (09:14)
[2019-01-17] MEDS: CATHETER FLUSH 10 ML SYR IV PRN (09:14)
[2019-01-17 09:15] VITALS: BP 121/79
[2019-01-18] MEDS: cefTRIAXone 2,000 MG/SWFI 20 ML IV PUSH IV SCH ×2 (10:12)
[2019-01-18] MEDS: CATHETER FLUSH 10 ML SYR IV PRN ×2 (10:12→10:20)
[2019-01-18 10:26] VITALS: BP 137/89
[2019-01-19] MEDS: CATHETER FLUSH 10 ML SYR IV PRN (10:14)
[2019-01-19] MEDS: cefTRIAXone 2,000 MG/SWFI 20 ML IV PUSH IV SCH ×2 (10:14)
[2019-01-19 10:20] VITALS: BP 144/72
[2019-01-20] MEDS: CATHETER FLUSH 10 ML SYR IV PRN (10:09)
[2019-01-20] MEDS: cefTRIAXone 2,000 MG/SWFI 20 ML IV PUSH IV SCH ×2 (10:09)
[2019-01-20 10:16] VITALS: BP 143/98
[2019-01-21 10:05] VITALS: BP 141/91
[2019-01-21] MEDS: cefTRIAXone 2,000 MG/SWFI 20 ML IV PUSH IV SCH ×2 (10:16)
[2019-01-21] MEDS: CATHETER FLUSH 10 ML SYR IV PRN (10:20)
[2019-01-22] MEDS: cefTRIAXone 2,000 MG/SWFI 20 ML IV PUSH IV SCH ×2 (11:48)
[2019-01-22] MEDS: CATHETER FLUSH 10 ML SYR IV PRN (11:49)
[2019-01-22 12:00] VITALS: BP 163/79
[2019-01-23 09:15] VITALS: BP 148/83
[2019-01-23] MEDS: cefTRIAXone 2,000 MG/SWFI 20 ML IV PUSH IV SCH ×2 (09:15)
[2019-01-24] MEDS: cefTRIAXone 2,000 MG/SWFI 20 ML IV PUSH IV SCH ×2 (09:06)
[2019-01-24] MEDS: CATHETER FLUSH 10 ML SYR IV PRN (09:07)
[2019-01-24 09:15] VITALS: BP 152/79
[2019-01-25] MEDS: CATHETER FLUSH 10 ML SYR IV PRN (10:13)
[2019-01-25] MEDS: cefTRIAXone 2,000 MG/SWFI 20 ML IV PUSH IV SCH ×2 (10:13)
[2019-01-25 10:17] VITALS: BP 160/84
[2019-01-26 10:00] VITALS: BP 145/80
[2019-01-26] MEDS: cefTRIAXone 2,000 MG/SWFI 20 ML IV PUSH IV SCH ×2 (10:11)
[2019-01-27 10:10] VITALS: BP 155/77
[2019-01-27] MEDS: cefTRIAXone 2,000 MG/SWFI 20 ML IV PUSH IV SCH ×2 (10:21)
[2019-01-27] MEDS: CATHETER FLUSH 10 ML SYR IV PRN (10:23)
[2019-01-28] MEDS: cefTRIAXone 2,000 MG/SWFI 20 ML IV PUSH IV SCH ×2 (10:16)
[2019-01-28] MEDS: CATHETER FLUSH 10 ML SYR IV PRN (10:17)
[2019-01-28 10:35] VITALS: BP 128/81
[2019-01-29] MEDS: cefTRIAXone 2,000 MG/SWFI 20 ML IV PUSH IV SCH ×2 (11:07)
[2019-01-29] MEDS: CATHETER FLUSH 10 ML SYR IV PRN (11:07)
[2019-01-29 11:13] VITALS: BP 161/80
[2019-01-30] MEDS: cefTRIAXone 2,000 MG/SWFI 20 ML IV PUSH IV SCH ×2 (09:04)
[2019-01-30] MEDS: CATHETER FLUSH 10 ML SYR IV PRN (09:04)
[2019-01-30 09:17] VITALS: BP 177/87
[2019-01-31] MEDS: cefTRIAXone 2,000 MG/SWFI 20 ML IV PUSH IV SCH ×2 (09:16)
[2019-01-31 09:20] VITALS: BP 155/86
[2019-01-31] MEDS: CATHETER FLUSH 10 ML SYR IV PRN (09:20)
[2019-02-01 10:20] VITALS: BP 144/77
[2019-02-01] MEDS: CATHETER FLUSH 10 ML SYR IV PRN (10:23)
[2019-02-01] MEDS: cefTRIAXone 2,000 MG/SWFI 20 ML IV PUSH IV SCH ×2 (10:23)
--- NOTE | 2019-02-01 10:24 | NUR ---
karon states cap changed yesterday
[2019-02-02 10:00] VITALS: BP 145/76
[2019-02-02] MEDS: CATHETER FLUSH 10 ML SYR IV PRN (10:03)
[2019-02-02] MEDS: cefTRIAXone 2,000 MG/SWFI 20 ML IV PUSH IV SCH ×2 (10:03)
--- NOTE | 2019-02-02 10:18 | NUR ---
PHONED DR. CRUZ ON PITTING MACHINE OPERATOR NUMBER [phone] TO INFORM LAST DOSE OF ROCEPHIN IS TOMORROW AND SHE INFORMED WOULD CHECK WITH CLINIC NOTES AND GET WITH US TO SEE IF MAY DISCONTINUE PICC LINE.
[2019-02-03] MEDS: CATHETER FLUSH 10 ML SYR IV PRN ×2 (10:02→10:12)
[2019-02-03] MEDS: cefTRIAXone 2,000 MG/SWFI 20 ML IV PUSH IV SCH ×2 (10:35)
[2019-02-03 11:00] VITALS: BP 154/84
[2019-02-12 10:35] VITALS: BP 155/87
[2019-02-24 10:33] VITALS: BP 168/83
[~2019-03-04] VITALS: Ht 157.5 cm; Wt 81.2 kg
[2019-03-04 10:26] VITALS: BP 170/97
[~2019-03-04 10:26] MED LIST changes: +KCL 20 MEQ TAB (K-DUR) PO ONE; +TROUGH ORDER-PHARMACY XX NR
== END 2019-03-04 11:10 | disposition home or self-care (01) ==
LOC: SDC 10:26
PROVIDERS: ATTEND Family Medicine
DX: M86.8X8 Other osteomyelitis, other site (principal)
CPT/HCPCS: 36415; 80048; 80053; 80202; 85027; 96365; 96374; 96376; 99211

== ENCOUNTER 2019-05-04 12:35 | Observation (INO) | payer MEDICARE ==
[~2019-05-04] VITALS: Ht 157.4 cm; Wt 71.9 kg
[~2019-05-04 12:35] MED LIST changes: -KCL 20 MEQ TAB (K-DUR) PO ONE; -METO-370 PO; +METO50TA7 PO; -TROUGH ORDER-PHARMACY XX NR
[2019-05-04] MEDS ORDERED: NS IV 1000 ML 1,000 ML IV SCH (13:00)
[2019-05-04] MEDS ORDERED: ONDANSETRON 4 MG/2 ML (SDV) Z0FRAN IVP ONE (13:00)
[2019-05-04 13:17] LABS: BILIRUBIN,URINE NEGATIVE (NEGATIVE); CLARITY,URINE SL CLOUDY; COLOR,URINE AMBER; GLUCOSE, URINE (UA) NEGATIVE (NEGATIVE); KETONES,URINE NEGATIVE (NEGATIVE); LEUKOCYTE ESTERASE ,URINE 1+ (NEGATIVE); NITRITE,URINE NEGATIVE (NEGATIVE); PH,URINE 5.5 (5-9); PROTEIN,URINE TRACE (NEGATIVE)
[2019-05-04 13:25] LABS: BACTERIA,URINE MODERATE /HPF; RBC,URINE RARE /HPF; SQUAMOUS EPITHELIAL CELL,UR >50 /HPF
--- NOTE | 2019-05-04 13:26 | ED GI ---
General Chief Complaint: Abdominal/GI Problems Stated Complaint: N/V/D Nursing Triage Note: AMB TO ROOM REPORTS THAT FOR 6 DAYS GETS NAUSATED WHEN SHE EATS. ABLE TO DRINK JOSH AID AND DRINK COKE WITHOUT PROBLEM.NO VOMITNG Sepsis Screen: No Definite Risk Source of Information: Patient Exam Limitations: No Limitations History of Present Illness Date Seen by Provider: May 04, 2019 Time Seen by Provider: 13:25 Initial Comments To ER with a six-day history of watery nonbloody diarrhea, vomiting after eating. She has no abdominal pain, she vomits every time that she eats or drinks unless it's Coca-Cola or Koolaid. She does not have a gallbladder. She has not called primary care for this. She is not nauseous now and has no abdominal pain. Is worried because she only has one kidney. Timing/Duration: 1-2 Days Severity/Quality: Moderate Location: Generalized Abdomen Radiation: No Radiation Activities at Onset: None Associated Symptoms: Nausea/Vomiting Allergies and Home Medications Allergies Coded Allergies: No Known Drug Allergies (Verified , 10/21/08) Home Medications Amlodipine Besylate 10 Mg Tablet, 10 MG PO DAILY Prescribed by: HERNAN CRUZ on 12/23/18 1304 Apixaban 5 Mg Tablet, 5 MG PO BID, (Reported) Aspirin 81 Mg Tab.chew, 81 MG PO DAILY, (Reported) Atorvastatin Calcium 20 Mg Tablet, 20 MG PO HS, (Reported) Ceftriaxone Sodium 2 Gm/Vial Soln, 2 GM IV DAILY Prescribed by: HERNAN CRUZ on 12/23/18 1304 Diphenoxylate HCl/Atropine 1 Each Tablet, 1 TAB PO Q4H PRN for DIARRHEA, (Reported) Gabapentin 100 Mg Capsule, 100 MG PO BID PRN for NERVE PAIN, (Reported) LAST FILLED #90 09-23-18 (CAN NOT AFFORD ALL THE TIME SO TRIES TO SPREAD IT OUT) Hydrocodone/Acetaminophen 1 Each Tablet, 1 TAB PO TID PRN for PAIN-MODERATE, (Reported) Hydroxychloroquine Sulfate 200 Mg Tablet, 400 MG PO DAILY, (Reported) TAKES 2 (200MG) TABLETS Metoprolol Succinate 50 Mg Tab.er.24h, 50 MG PO DAILY, (Reported) Multivitamin 1 Each Tablet, 1 TAB PO DAILY, (Reported) Ondansetron HCl 4 Mg Tablet, 4 MG PO Q6H PRN for NAUSEA/VOMITING-1ST LINE, (Reported) Potassium Chloride 20 Meq Tablet.er, 20 MEQ PO DAILY Prescribed by: YUDI MORRISON on 12/25/18 1241 Prednisone 10 Mg Tab, 10 MG PO DAILY, (Reported) Vancomycin HCl 1 Gm Vial, 0 IV DAILY Pharmacy to dose Prescribed by: HERNAN CRUZ on 12/23/18 1304 Vilazodone Hydrochloride 20 Mg Tablet, 20 MG PO DAILY, (Reported) Patient Home Medication List Home Medication List Reviewed: Yes Review of Systems Review of Systems Constitutional: see HPI; No chills EENTM: No Symptoms Reported Respiratory: No Symptoms Reported Cardiovascular: See HPI Gastrointestinal: See HPI; Denies Abdominal Pain; Diarrhea, Nausea, Vomiting Genitourinary: No Symptoms Reported Musculoskeletal: no symptoms reported Skin: no symptoms reported Psychiatric/Neurological: No Symptoms Reported Endocrine: No Symptoms Reported Past Iignckp-Zhsrrj-Rihohj Hx Patient Social History Alcohol Use: Denies Use Recreational Drug Use: No Type Used: Cigarettes 2nd Hand Smoke Exposure: Yes Recent Foreign Travel: No Contact w/Someone Who Travel: No Recent Infectious Disease Expo: No Recent Hopitalizations: No (CVA 4-19) Immunizations Up To Date PED Vaccines UTD: No Date of Pneumonia Vaccine: Dec 22, 2008 Date of Influenza Vaccine: Dec 21, 2016 Seasonal Allergies Seasonal Allergies: No Past Medical History Surgeries: Yes Abdominal, Adenoidectomy, Cardiac, Gallbladder, Hysterectomy, Oophorectomy, Orthopedic, Tonsillectomy Respiratory: No Pneumonia Currently Using CPAP: No Currently Using BIPAP: No Cardiac: Yes (history of aortic thrombus) Coronary Artery Disease, High Cholesterol, Hypertension Neurological: Yes Neuropathy, Stroke 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 Disorders: Yes (HX OF VULVAR CA--MODIFIED RADICAL VULVECTOMY 1991) 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 Disorders: 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 No Pertinent Family Hx Physical Exam Vital Signs Vital Signs - First Documented 05/04/19 12:42 Temp 36.0 Pulse 77 Resp 18 B/P (MAP) 172/93 (119) Pulse Ox 100 O2 Delivery Room Air Capillary Refill : Less Than 3 Seconds Height/Weight/BMI Height: 5'0.00" Weight: 161lbs. 0oz. 73.046061uj; 27.00 BMI Method:Stated General Appearance: WD/WN, no apparent distress HEENT: PERRL/EOMI, normal ENT inspection Respiratory: no respiratory distress, no accessory muscle use Cardiovascular: regular rate, rhythm, no murmur Gastrointestinal: normal bowel sounds, non tender, soft Extremities: normal range of motion, non-tender Neurologic/Psychiatric: alert, normal mood/affect, oriented x 3 Skin: normal color, warm/dry Progress/Results/Core Measures Results/Orders Lab Results Laboratory Tests Test 05/04/19 13:13 05/04/19 13:22 Range/Units Urine Color LATANYA H Urine Clarity SL CLOUDY Urine pH 5.5 5-9 Urine Specific [place] >=1.030 1.016-1.022 Urine Protein TRACE H NEGATIVE Urine Glucose (UA) NEGATIVE NEGATIVE Urine Ketones NEGATIVE NEGATIVE Urine Nitrite NEGATIVE NEGATIVE Urine Bilirubin NEGATIVE NEGATIVE Urine Urobilinogen 1.0 < = 1.0 MG/DL Urine Leukocyte Esterase 1+ H NEGATIVE Urine RBC (Auto) NEGATIVE NEGATIVE Urine RBC RARE /HPF Urine WBC 2-5 /HPF Urine Squamous Epithelial Cells >50 H /HPF Urine Crystals NONE /LPF Urine Bacteria MODERATE H /HPF Urine Casts NONE /LPF Urine Mucus NEGATIVE /LPF Urine Culture Indicated YES White Blood Count 8.4 4.3-11.0 10^3/uL Red Blood Count 4.14 L 4.35-5.85 10^6/uL Hemoglobin 11.5 11.5-16.0 G/DL Hematocrit 36 35-52 % Mean Corpuscular Volume 87 80-99 FL Mean Corpuscular Hemoglobin 28 25-34 PG Mean Corpuscular Hemoglobin Concent 32 32-36 G/DL Red Cell Distribution Width 14.4 10.0-14.5 % Platelet Count 312 130-400 10^3/uL Mean Platelet Volume 11.3 H 7.4-10.4 FL Neutrophils (%) (Auto) 71 42-75 % Lymphocytes (%) (Auto) 18 12-44 % Monocytes (%) (Auto) 7 0-12 % Eosinophils (%) (Auto) 4 0-10 % Basophils (%) (Auto) 1 0-10 % Neutrophils # (Auto) 6.0 1.8-7.8 X 10^3 Lymphocytes # (Auto) 1.5 1.0-4.0 X 10^3 Monocytes # (Auto) 0.6 0.0-1.0 X 10^3 Eosinophils # (Auto) 0.3 0.0-0.3 10^3/uL Basophils # (Auto) 0.1 0.0-0.1 10^3/uL Sodium Level 135 135-145 MMOL/L Potassium Level 3.5 L 3.6-5.0 MMOL/L Chloride Level 106 98-107 MMOL/L Carbon Dioxide Level 17 L 21-32 MMOL/L Anion Gap 12 5-14 MMOL/L Blood Urea Nitrogen 25 H 7-18 MG/DL Creatinine 3.02 H 0.60-1.30 MG/DL Estimat Glomerular Filtration Rate 15 BUN/Creatinine Ratio 8 Glucose Level 86 70-105 MG/DL Calcium Level 9.2 8.5-10.1 MG/DL Corrected Calcium 9.7 8.5-10.1 MG/DL Total Bilirubin 0.3 0.1-1.0 MG/DL Aspartate Amino Transf (AST/SGOT) 12 5-34 U/L Alanine Aminotransferase (ALT/SGPT) 14 0-55 U/L Alkaline Phosphatase 142 H 40-136 U/L Total Protein 6.4 6.4-8.2 GM/DL Albumin 3.4 3.2-4.5 GM/DL Lipase 13 8-78 U/L My Orders Orders - YUDI MORRISON APRN Cbc With Automated Diff (05/04/19 12:56) Lipase (05/04/19 12:56) Comprehensive Metabolic Panel (05/04/19 12:56) Ua Culture If Indicated (05/04/19 12:56) Ed Iv/Invasive Line Start (05/04/19 12:56) Ns Iv 1000 Ml (Sodium Chloride 0.9%) (05/04/19 13:00) Ondansetron Injection (Zofran Injectio (05/04/19 13:00) Urine Culture (05/04/19 13:13) Medications Given in ED Current Medications Medications Dose Ordered Sig/Kenneth Route Start Time Stop Time Status Last Admin Dose Admin Ondansetron HCl 8 mg ONCE ONCE IVP 05/04/19 13:00 05/04/19 13:01 DC 05/04/19 13:15 8 MG Vital Signs/I&O 05/04/19 05/04/19 12:42 14:24 Temp 36.0 Pulse 77 Resp 18 18 B/P (MAP) 172/93 (119) 138/67 (90) Pulse Ox 100 95 O2 Delivery Room Air Blood Pressure Mean: 119 Departure Communication (Admissions) Time/Spoke to Admitting Phy: 14:[address] Mosquera, baseline creatinine runs about 1.6-2.3 historically. Today she is 3.02. For this reason she needs to be admitted for acute kidney injury and rehydration giving her history of only one functional kidney. Looks like her right kidney is atrophic on 2018 CT. She has no recent antibiotic use that would concern me for C. difficile infection. The diarrhea is nonbloody and she is without fevers chills or abdominal pain. I'll also order loperamide 2 mg by mouth 3 times a day 1 day. Impression Primary Impression: Acute kidney injury Additional Impression: Nausea vomiting and diarrhea Disposition: ADMITTED INPATIENT Condition: Stable Admissions Decision to Admit Reason: Admit from ER (General) Decision to Admit/Date: May 04, 2019 Time/Decision to Admit Time: 14:35 Departure-Patient Inst. Referrals: [facility] (PCP) Primary Care Physician CHRISTA GLORIA (Family) Primary Care Physician YUDI MORRISON APRN May 04, 2019 13:26
[2019-05-04 13:30] LABS: BASOPHILS # (AUTO) 0.1 10^3/uL (0.0-0.1); BASOPHILS % (AUTO) 1 % (0-10); EOSINOPHILS # (AUTO) 0.3 10^3/uL (0.0-0.3); EOSINOPHILS % (AUTO) 4 % (0-10); HEMATOCRIT 36 % (35-52); HEMOGLOBIN 11.5 G/DL (11.5-16.0); LYMPHOCYTES # (AUTO) 1.5 X 10^3 (1.0-4.0); LYMPHOCYTES % (AUTO) 18 % (12-44); MEAN CORPUSCULAR HEMOGLOBIN 28 PG (25-34); MEAN CORPUSCULAR HGB CONC 32 G/DL (32-36); MEAN CORPUSCULAR VOLUME 87 FL (80-99); MEAN PLATELET VOLUME 11.3 FL (7.4-10.4); MONOCYTES # (AUTO) 0.6 X 10^3 (0.0-1.0); MONOCYTES % (AUTO) 7 % (0-12); NEUTROPHILS % (AUTO) 71 % (42-75); PLATELET COUNT 312 10^3/uL (130-400); RED CELL DISTRIBUTION WIDTH 14.4 % (10.0-14.5); WHITE BLOOD COUNT 8.4 10^3/uL (4.3-11.0)
--- NOTE | 2019-05-04 13:46 | NUR ---
TO ROOM FLUIDS INFUSING WITHOUT PROBLEM NO NEW C/P
[2019-05-04 13:58] LABS: ALBUMIN 3.4 GM/DL (3.2-4.5); BILIRUBIN,TOTAL 0.3 MG/DL (0.1-1.0); CALCIUM 9.2 MG/DL (8.5-10.1); CREATININE SERUM 3.02 MG/DL (0.60-1.30); POTASSIUM 3.5 MMOL/L (3.6-5.0); TOTAL PROTEIN 6.4 GM/DL (6.4-8.2)
[2019-05-04 14:24] VITALS: BP 138/67
--- NOTE | 2019-05-04 15:03 | NUR ---
EUGENIO PARKER Nacho admitted to room 414-1, with an admitting diagnosis of ACUTE KIDNEY FAILURE, NAUSEA, VOMITING, DIARRHEA, on 05/04/19 from ED via WHEELCHAIR, accompanied by ED STAFF. EUGENIO PARKER introduced to surroundings, call light, bed controls, phone, TV, temperature control, lights, meal times, smoking policy, visitor policy, side rail policy, bathrooms and showers. Patient Rights given to patient in the handbook. EUGENIO PARKER verbalizes understanding that [facility] is not responsible for the loss or damage to any personal effects or valuables that are kept in the patients possession during their hospitalization. The following Patient Care Plans were discussed with the PATIENT: Discharge Planning, ACUTE RENAL INSUFFICIENCY, and KNOWLEDGE DEFICIT. EUGENIO PARKER verbalizes understanding of Interdisciplinary Patient Education. Patient and/or family were informed about the Rapid Response Team and its purpose.
[2019-05-04] MEDS ORDERED: ONDANSETRON 4 MG/2 ML (SDV) Z0FRAN IV PRN (15:15)
[2019-05-04] MEDS ORDERED: CATHETER FLUSH 10 ML SYR IV PRN (15:15)
[2019-05-04] MEDS: LACTATED RINGERS 1,000 ML IV SCH ×2 (15:36→23:19)
[2019-05-04] MEDS: LOPERAMIDE 2 MG (IMODIUM) TABLET PO SCH ×2 (15:44→21:48)
[2019-05-04] MEDS: NICOTINE 21 MG (NICODERM) PATCH TD SCH (16:09)
[2019-05-04 16:27] VITALS: BP 151/64
[2019-05-04 16:29] VITALS: BP 151/64
--- NOTE | 2019-05-04 16:38 | NUR ---
LEFT MESSAGE FOR DR DEL REAL. DVT SCORE OF 6.
--- NOTE | 2019-05-04 17:42 | History & Physical-Hospitalist ---
History of Present Illness HPI/Chief Complaint CC: ARF HPI: This is a 73yoWF clinic patient of [facility] known to me from prior admits who presents to the ER with complaints of N/V and diarrhea for 7 days and unable to tolerate anything but Coke and Gil-Aid. 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 Dr Rosas has been consulted for N/V in case she needs an EGD or any other procedure. Source: patient Exam Limitations: no limitations Date Seen 05/04/19 Time Seen by a Provider: 17:50 Attending Physician Slime Mosquera DO [facility] Referring Physician Date of Admission May 04, 2019 at 14:31 Home Medications & Allergies Home Medications Reviewed patient Home Medication Reconciliation performed by pharmacy medication reconciliations aerospace physiological technician and/or nursing. Patients Allergies have been reviewed. Allergies Allergies Coded Allergies No Known Drug Allergies (Verified10/21/08) Past Kqluntb-Yndlsf-Sesgzl Hx Past Med/Social Hx: Reviewed Nursing Past Med/Soc Hx, Reviewed and Corrections made Patient Social History Marrital Status: single Employed/Student: retired Alcohol Use: Denies Use Recreational Drug Use: No Smoking Status: Former Smoker Type Used: Cigarettes 2nd Hand Smoke Exposure: Yes Recent Foreign Travel: No Contact w/other who traveled: No Recent Hopitalizations: No (CVA 4-19) Recent Infectious Disease Expo: No Immunizations Up To Date Pediatric: No Date of Pneumonia Vaccine: Jan 22, 2019 Date of Influenza Vaccine: Jan 22, 2019 Seasonal Allergies Seasonal Allergies: No Past Medical History Surgeries: Abdominal, Adenoidectomy, Cardiac, Gallbladder, Hysterectomy, Oophorectomy, Orthopedic, Tonsillectomy Currently Using CPAP: No Currently Using BIPAP: No Cardiac: Coronary Artery Disease, High Cholesterol, Hypertension Neurological: Neuropathy, Stroke 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: Yes (HX OF VULVAR CA--MODIFIED RADICAL VULVECTOMY 1991) Sexually Transmitted Disease: No HIV/AIDS: No 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 Disorders: Denies Hysterectomy Genitourinary: Renal Failure Gastrointestinal: Chronic Diarrhea, Gall Bladder Disease Musculoskeletal: Arthritis Endocrine: Lupus Loss of Vision: Left Hearing Impairment: Denies Cancer: Cervical, Vaginal Did You Recieve Any Treatments: Yes What Type of Treatment Did You: Chemotherapy, Radiation, Surgical Intervention Psychosocial: Anxiety History of Blood Disorders: No Adverse Reaction to Blood [place]: No Family History Arthritis 19 FATHER 19 MOTHER Cardiovascular disease 19 MOTHER Completed stroke 19 MOTHER maternal grandmother Congenital heart disease 19 MOTHER Diabetes mellitus 19 MOTHER maternal grandmother Hypercholesterolemia 19 MOTHER maternal grandmother Hypertension 19 MOTHER maternal grandmother Myocardial infarction maternal grandmother Tuberculosis paternal great grandfather No Pertinent Family Hx Review of Systems Constitutional: see HPI Gastrointestinal: nausea, vomiting Physical Exam Physical Exam Vital Signs Vital Signs - First Documented 05/04/19 12:42 Temp 36.0 Pulse 77 Resp 18 B/P (MAP) 172/93 (119) Pulse Ox 100 O2 Delivery Room Air Capillary Refill : Less Than 3 Seconds Height, Weight, BMI Height: 5'0.00" Weight: 161lbs. 0oz. [id number]; 27.48 BMI Method:Stated General Appearance: No Apparent Distress, Chronically ill Eyes: Right Eye Normal Inspection, Right Eye PERRL HEENT: PERRL/EOMI, Normal ENT Inspection, Pharynx Normal, Moist Mucous Membranes, Other (dry MM) Neck: Full Range of Motion, Normal Inspection, Non Tender Respiratory: Chest Non Tender, Lungs Clear, Normal Breath Sounds, No Accessory Muscle Use, No Respiratory Distress Cardiovascular: Regular Rate, Rhythm, No Edema, No Gallop, No JVD, No Murmur, Normal Peripheral Pulses Gastrointestinal: Normal Bowel Sounds, No Organomegaly, No Pulsatile Mass, Non Tender, Soft Back: Normal Inspection, No CVA Tenderness, No Vertebral Tenderness Extremity: Normal Capillary Refill, Normal Inspection, Normal Range of Motion, Non Tender, No Calf Tenderness, No Pedal Edema Neurologic/Psychiatric: Alert, Oriented x3, No Motor/Sensory Deficits, Normal Mood/Affect Skin: Normal Color, Warm/Dry Lymphatic: No Adenopathy Results Results/Procedures Labs Laboratory Tests 05/04/19 13:22 Patient resulted labs reviewed. Assessment/Plan Admission Diagnosis Assessment: Nausea and vomiting for 7 days (1) Acute renal failure (2) Lupus (systemic lupus erythematosus) (3) Gout (4) Thrombosis, renal vein Plan: IVF Observation Dr Rosas consultation Admission Status: Observation Diagnosis/Problems Diagnosis/Problems (1) Acute renal failure Status: Acute (2) Nausea vomiting and diarrhea Status: Acute (3) Gout Status: Acute (4) Chronic kidney disease (CKD) Status: Acute (5) Lupus (systemic lupus erythematosus) Status: Chronic (6) Hypertension Status: Chronic (7) Thrombosis, renal vein Status: Chronic (8) Hyperlipidemia Status: Chronic Clinical Quality Measures DVT/VTE Risk/Contraindication: Risk Factor Score Per Nursin RFS Level Per Nursing on Admit: 4+=Very High SLIME MOSQUERA DO May 04, 2019 17:42
--- NOTE | 2019-05-04 19:14 | CONSULTATION REPORT ---
DATE OF SERVICE: 05/04/2019 ADMITTING PHYSICIAN: Dr. Mosquera. ATTENDING PRIMARY TAKE OUT WAITER/WAITRESS: Daniel Meade APRN. HISTORY OF PRESENT ILLNESS: The patient is a 73-year-old female who presented to the Emergency Department with 6 days of nausea, vomiting with food; however, has not been able to eat or to take in drinks. She reports that she has had a watery nonbloody diarrhea and then when she would try to eat solid foods she would have nausea and vomiting. She does appear to be dehydrated and she did have an elevation of her creatinine. 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 She appears to be dehydrated and will need proper hydration. She does have risk factors for peptic ulcer disease, which includes smoking and taking caffeinated beverages. 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 PAST SURGICAL HISTORY: Tonsillectomy, cholecystectomy, hysterectomy, total hysterectomy, orthopedic procedure, and modified radical vulvectomy in 1991. ALLERGIES: No known drug allergies. MEDICATIONS: Amlodipine 10 mg daily, Apixaban 5 mg b.i.d., aspirin 81 mg daily, atorvastatin 20 mg daily, ceftriaxone daily, diphenoxylate daily, gabapentin 100 mg daily, hydrocodone p.r.n. Hydroxychloroquine 400 mg daily, metoprolol 50 mg daily, multivitamin daily, potassium 20 mEq daily, prednisone 10 mg daily, vancomycin 1 gram daily, vilazodone hydrochloride 20 mg daily. SOCIAL HISTORY: Positive smoke, negative alcohol. FAMILY HISTORY: Noncontributory. VITAL SIGNS: Temperature 36.2, blood pressure 151/64, pulse 52, respirations 18, pulse ox 99% on room air. REVIEW OF SYSTEMS: A well-nourished female, currently in no acute distress. She is not experiencing any shortness of breath or difficulty breathing. No chest pain, palpitations, diaphoresis. Intermittent episodes of nausea as well as diarrhea. She states that nausea is after solid foods; however, she can drink liquids. No hematemesis, no coffee ground emesis. No red blood per rectum, no dark tarry stools. No fever, chills, no recent inadvertent weight loss. All other review of systems negative. PHYSICAL EXAMINATION: CHEST: A few scattered rales bilaterally. HEART: Regular, no murmurs. EXTREMITIES: No lower extremity edema, negative Homans sign. HEENT: No scleral icterus. NECK: No cervical lymphadenopathy. ABDOMEN: Soft, nontender, nondistended. SKIN: Warm, dry. LABORATORY DATA: WBC 8.4, hemoglobin 11.5, hematocrit 36, platelets 312. BUN 25, creatinine 3.02. Urinalysis, 1+ leukocyte esterase and moderate bacteria. ASSESSMENT AND PLAN: A 73-year-old female with dehydration secondary to nausea and vomiting and medical noncompliance. She will need IV hydration and monitoring of her renal function and treat her most likely peptic ulcer disease with IV PPI acid injection molding process technician and slowly incorporate liquids and solids by mouth and continue with IV hydration and monitor her BUN and creatinine. Once this is resolved, she may be discharged home; however, if she has continued issues with nausea and vomiting as well as epigastric pain, she may need an EGD. Job ID: [id number] DocumentID: [id number] Dictated Date: 05/04/2019 18:53:12 Supervisor Hardboard Date: 05/04/2019 19:13:51 Dictated By: MELIZA MONAE MD [facility]
[2019-05-04] MEDS ORDERED: GABAPENTIN 100 MG (NEURONTIN) CAP PO PRN (20:30)
[2019-05-04 20:44] VITALS: BP 127/58
[2019-05-04] MEDS ORDERED: ONDANSETRON 4 MG/2 ML (SDV) Z0FRAN IVP PRN (20:45)
[2019-05-04] MEDS ORDERED: fentaNYL INJECTION 100 MCG/2 ML AMP IVP PRN (20:45)
[2019-05-04] MEDS ORDERED: diphenhydrAMINE 25 MG TAB (BENADRYL) PO PRN (20:45)
[2019-05-04] MEDS ORDERED: ALPRAZolam 0.25 MG (XANAX) TAB PO PRN (20:45)
[2019-05-04] MEDS ORDERED: ACETAMINOPHEN 500 MG TAB (TYLENOL) PO PRN (20:45)
[2019-05-04] MEDS ORDERED: MELATONIN 3 MG TABLET PO PRN (20:45)
[2019-05-04] MEDS ORDERED: DOCUSATE SODIUM 100 MG (COLACE) CAP PO PRN (20:45)
[2019-05-04] MEDS ORDERED: HYDROcodone/APAP 5 MG/325 MG (LORTAB) TAB PO PRN (20:45)
[2019-05-04] MEDS ORDERED: CALCIUM CARBONATE 500 MG (TUMS) TAB.CHEW PO PRN (20:45)
[2019-05-04] MEDS: APIXABAN 5 MG (ELIQUIS) TABLET PO SCH (21:48)
[2019-05-04] MEDS: SENNA W/DOCUSATE (SENOKOT S) TABLET PO SCH (21:49)
[2019-05-04 23:59] VITALS: BP 135/62
[2019-05-05] MEDS: LOPERAMIDE 2 MG (IMODIUM) TABLET PO PRN ×2 (03:53→11:29)
[2019-05-05 03:54] VITALS: BP 130/60
[2019-05-05 05:08] LABS: BASOPHILS % (AUTO) 1 % (0-10); EOSINOPHILS # (AUTO) 0.3 10^3/uL (0.0-0.3); EOSINOPHILS % (AUTO) 4 % (0-10); HEMATOCRIT 32 % (35-52); HEMOGLOBIN 10.2 G/DL (11.5-16.0); LYMPHOCYTES # (AUTO) 1.6 X 10^3 (1.0-4.0); LYMPHOCYTES % (AUTO) 24 % (12-44); MEAN CORPUSCULAR HEMOGLOBIN 28 PG (25-34); MEAN CORPUSCULAR HGB CONC 32 G/DL (32-36); MEAN CORPUSCULAR VOLUME 88 FL (80-99); MEAN PLATELET VOLUME 11.8 FL (7.4-10.4); MONOCYTES # (AUTO) 0.6 X 10^3 (0.0-1.0); MONOCYTES % (AUTO) 9 % (0-12); NEUTROPHILS # (AUTO) 4.1 X 10^3 (1.8-7.8); NEUTROPHILS % (AUTO) 62 % (42-75); PLATELET COUNT 252 10^3/uL (130-400); RED CELL DISTRIBUTION WIDTH 14.7 % (10.0-14.5); WHITE BLOOD COUNT 6.6 10^3/uL (4.3-11.0)
[2019-05-05 05:30] LABS: ALBUMIN 2.8 GM/DL (3.2-4.5); BILIRUBIN,TOTAL 0.3 MG/DL (0.1-1.0); CALCIUM 8.6 MG/DL (8.5-10.1); CREATININE SERUM 2.39 MG/DL (0.60-1.30); POTASSIUM 4.1 MMOL/L (3.6-5.0); TOTAL PROTEIN 5.3 GM/DL (6.4-8.2)
[2019-05-05] MEDS ORDERED: ONDANSETRON 4 MG (ZOFRAN) ORAL DISSOLVE TAB PO PRN (06:30)
[2019-05-05] MEDS ORDERED: DIPHENOXYLATE/ATROPINE 2.5MG/0.025MG (LOMOTIL) TAB PO PRN (06:30)
[2019-05-05] MEDS ORDERED: HYDROcodone/APAP 5 MG/325 MG (LORTAB) TAB PO PRN (06:30)
[2019-05-05] MEDS: LACTATED RINGERS 1,000 ML IV SCH ×3 (06:42→23:21)
[2019-05-05] MEDS: HYDROXYCHLOROQUINE 200 MG (PLAQUENIL) TAB PO SCH (07:17)
[2019-05-05] MEDS: NICOTINE PATCH REMOVAL TP SCH (07:17)
[2019-05-05] MEDS: meTOproloL SUCCINATE 50 MG (TOPROL XL) TAB PO SCH (07:18)
[2019-05-05] MEDS: APIXABAN 5 MG (ELIQUIS) TABLET PO SCH (07:18)
[2019-05-05] MEDS: LOPERAMIDE 2 MG (IMODIUM) TABLET PO SCH (07:19)
[2019-05-05] MEDS: SENNA W/DOCUSATE (SENOKOT S) TABLET PO SCH ×2 (07:19→21:42)
[2019-05-05] MEDS: NICOTINE 21 MG (NICODERM) PATCH TD SCH (07:19)
[2019-05-05] MEDS: predniSONE 10 MG TAB PO SCH (07:19)
[2019-05-05 08:00] VITALS: BP 174/71
[2019-05-05] MEDS ORDERED: amLODIPine 10 MG (NORVASC) TAB PO SCH (09:00)
[2019-05-05] MEDS ORDERED: NON-FORMULARY MEDICATION 1 EA EA (Vilazodone Hydrochloride (Viibryd) 20 MG) PO SCH (09:00)
[2019-05-05] MEDS ORDERED: MULTIVIT W/MINERALS TAB (THERAGRAN M) PO SCH (09:00)
[2019-05-05] MEDS ORDERED: ASPIRIN 81 MG CHEW (CHILDREN'S ASA) PO SCH (09:00)
[2019-05-05] MEDS ORDERED: ASPI325T32 PO (10:22)
[2019-05-05] MEDS ORDERED: APIX5TAB PO (10:22)
[2019-05-05] MEDS ORDERED: LISI10TA2 PO (10:22)
--- NOTE | 2019-05-05 10:27 | NUR ---
WENT OVER THE LIST ON FILE WITH THE PATIENT AND SHE VERIFIED WHAT SHE IS STILL TAKING. I CALLED [facility] FOR A LIST OF RECENTLY FILLED MEDICATIONS AND UPDATED THE LAST FILL DATES. SHE IS OVERDUE FOR REFILL ON MOST OF HER MEDS. [facility] FILLED: 05-04-19 HYDROCODONE 5-325MG TID PRN #84 (NOT PICKED UP YET, PREVIOUSLY FILLED 04-06-19) 04-29-19 PREDNISONE 10MG DAILY #30 (NOT PICKED UP YET, PREVIOUSLY FILLED 03-23-19) 03-23-19 VIIBRYD 20MG DAILY #30 03-19-19 ELIQUIS 5MG DAILY #30 03-19-19 CHANTIX 1MG BID #56 (SATES SHE STOPPED TAKING DUE TO MAKING HER NAUSEAS) 03-19-19 LISINOPRIL 10MG DAILY #30 03-19-19 PLAQUENIL 200MG BID #60 (STATES SHE TAKES 2 AM) 01-23-19 METOPROLOL ER 50MG DAILY #90 10-09-18 ATORVASTATIN 20MG #90 (NOTED PAST DUE FILL DATE, STATES SHE IS STILL TAKING) 10-03-18 LOMOTIL QID PRN #30 10-01-18 ZOFRAN 4MG 2 BID PRN #120 09-23-18 GABAPENTIN 100MG TID #90 (STATES SHE HAS BEEN OUT OF FOR AWHILE, CAN'T AFFORD) 08-09-18 AMLODIPINE 5MG DAILY (STATES SHE IS NO LONGER TAKING) SHE STATES SHE TAKES A FULL STRENGTH ASPIRIN 325MG DAILY OTC. SHE STATES SHE SHOULD BE TAKING A MTV DAILY WELL BUT HAS NOT BEEN LATELY. Addendum: 05/05/19 at 1034 by MIGUEL ANGEL BERMUDEZ [facility] MED REC WAS ALREADY REVIEWED AND CONTINUED PRIOR TO MED REC TECH AVAILABILITY. I NOTED THE CHANGES MADE TO THE MED REC AT THIS TIME AND GAVE THEM TO DAVID KUMAR FOR CLARIFICATIONS.
--- NOTE | 2019-05-05 11:15 | Progress Note - Hospitalist ---
Subjective HPI/CC On Admission Date Seen by Provider: May 05, 2019 Time Seen by Provider: 10:00 CC: ARF HPI: This is a 73yoWF clinic patient of [facility] known to me from prior admits who presents to the ER with complaints of N/V and diarrhea for 7 days and unable to tolerate anything but Coke and Gil-Aid. 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 Dr Rosas has been consulted for N/V in case she needs an EGD or any other procedure. Subjective/Events-last exam Pt having a pretty good day except for her toes burn and they now appear to be ischemic. Will consult Dr. Olvera. Restarted her home medications, Denies any significant pain otherwise. Nausea continues. Creatinine down a bit. Can't go home yet. Review of Systems General: Fatigue Gastrointestinal: Nausea, Vomiting Objective Exam Vital Signs Vital Signs Date Time Temp Pulse Resp B/P (MAP) Pulse Ox O2 Delivery O2 Flow Rate FiO2 05/05/19 16:00 37.1 62 18 114/54 (74) 97 Room Air Capillary Refill : Less Than 3 SecondsLess Than 3 Seconds General Appearance: No Apparent Distress, WD/WN, Chronically ill Respiratory: Chest Non Tender, Lungs Clear, Normal Breath Sounds, No Accessory Muscle Use, No Respiratory Distress Cardiovascular: Regular Rate, Rhythm, No Edema, No Gallop, No JVD, No Murmur, Normal Peripheral Pulses Neurologic/Psychiatric: Alert, Oriented x3, No Motor/Sensory Deficits, Normal Mood/Affect Skin: Other (toes reveal hyperemia no coldness to touch) Results/Procedures Lab Laboratory Tests 05/05/19 04:25 Patient resulted labs reviewed. Assessment/Plan Assessment and Plan Assess & Plan/Chief Complaint Assessment: Nausea and vomiting for 7 days (1) Acute renal failure (2) Lupus (systemic lupus erythematosus) (3) Gout (4) Thrombosis, renal vein Plan: IVF Observation Dr Rosas consultation Diagnosis/Problems Diagnosis/Problems (1) Acute renal failure Status: Acute (2) Nausea vomiting and diarrhea Status: Acute (3) Gout Status: Acute (4) Chronic kidney disease (CKD) Status: Acute (5) Lupus (systemic lupus erythematosus) Status: Chronic (6) Hypertension Status: Chronic (7) Thrombosis, renal vein Status: Chronic (8) Hyperlipidemia Status: Chronic Clinical Quality Measures DVT/VTE Risk/Contraindication: Risk Factor Score Per Nursin RFS Level Per Nursing on Admit: 4+=Very High SERINA DEL REAL DO May 05, 2019 11:15
[2019-05-05 12:00] VITALS: BP 113/53
--- NOTE | 2019-05-05 13:05 | Consultation-Cardiology ---
HPI-Cardiology Cardiology Consultation: Date of Consultation 05/05/19 Time Seen by a Provider: 12:40 Date of Admission Attending Physician Slime Mosquera DO Admitting Physician [place] Consulting Physician DIMITRI OLVERA MD, MA, FACP, FACC, [facility], CCDS HPI: Chief Complaint: Reason for consultation: TRAE, hypertension, CAD HPI 73 yo woman with multiple comorbidities admitted to Dr Mosquera yesterday for n/v/d and ac kidney injury whom Dr Mosquera has asked us to see in Cardiology consultation. She does not report cp. She has chronic, mod, exertional shortness of breath. She denies leg swelling. She notes gen malaise and weakness. She does not report fever or chills Review of Systems-Cardiology Review of Systems Constitutional: As described under HPI Eyes: No vision change Ears/Nose/Throat: No ear discharge, No nasal drainage, No recent hearing loss Respiratory: As described under HPI Cardiovascular: As described under HPI Gastrointestinal: As described under HPI Genitourinary: No dysuria, No hematuria, No urine frequency changes Musculoskeletal: back pain (chronic) Skin: No rash, No ulcerations Psychiatric/Neurological: No seizure, No focal weakness, No syncope Hematologic: No bleeding abnormalities JSN-Udfovm-Treyga Hx Patient Social History Marrital Status: single Employed/Student: retired Alcohol Use: Denies Use Recreational Drug Use: No Smoking Status: Former Smoker Type Used: Cigarettes 2nd Hand Smoke Exposure: Yes Recent Foreign Travel: No Recent Infectious Disease Expo: No Hospitalization with Isolation: Denies Immunizations Up To Date Date of Pneumonia Vaccine: Jan 22, 2019 Date of Influenza Vaccine: Jan 22, 2019 Past Medical History PMH As described under Assessment. Family Medical History Family Medical History: She reports her son has CAD with placement of 2 stents in the past. She reports "all the women in my family have had strokes". Family History: Arthritis 19 FATHER 19 MOTHER Cardiovascular disease 19 MOTHER Completed stroke 19 MOTHER maternal grandmother Congenital heart disease 19 MOTHER Diabetes mellitus 19 MOTHER maternal grandmother Hypercholesterolemia 19 MOTHER maternal grandmother Hypertension 19 MOTHER maternal grandmother Myocardial infarction maternal grandmother Tuberculosis paternal great grandfather Allergies and Home Medications Allergies Coded Allergies: No Known Drug Allergies (Verified , 10/21/08) Home Medications Apixaban 5 Mg Tablet, 5 MG PO DAILY, (Reported) LAST FILLED #30 03-19-19 Aspirin 325 Mg Tablet.dr, 325 MG PO DAILY, (Reported) Atorvastatin Calcium 20 Mg Tablet, 20 MG PO HS, (Reported) LAST FILLED #90 10-09-18 Diphenoxylate HCl/Atropine 1 Each Tablet, 1 TAB PO QID PRN for DIARRHEA, (Reported) LAST FILLED #30 10-03-18 Hydrocodone/Acetaminophen 1 Each Tablet, 1 TAB PO TID PRN for PAIN-MODERATE, (Reported) Hydroxychloroquine Sulfate 200 Mg Tablet, 400 MG PO DAILY, (Reported) LAST FILLED #60 03-19-19 TAKES 2 (200MG) TABLETS Lisinopril 10 Mg Tablet, 10 MG PO DAILY, (Reported) LAST FILLED #30 03-19-19 Metoprolol Succinate 50 Mg Tab.er.24h, 50 MG PO DAILY, (Reported) LAST FILLED #90 01-23-19 Ondansetron HCl 4 Mg Tablet, 4-8 MG PO BID PRN for NAUSEA/VOMITING-1ST LINE, (Reported) Prednisone 10 Mg Tab, 10 MG PO DAILY, (Reported) LAST FILLED #30 03-23-19 Vilazodone Hydrochloride 20 Mg Tablet, 20 MG PO DAILY, (Reported) LAST FILLED #30 03-23-19 Patient Home Medication List Home Medication List Reviewed: Yes Physical Exam-Cardiology Physical Exam Vital Signs/I&O 05/05/19 05/05/19 05/05/19 03:54 08:00 08:00 Temp 36.6 35.8 Pulse 62 57 Resp 16 16 B/P (MAP) 130/60 (83) 174/71 (105) Pulse Ox 95 94 94 O2 Delivery Room Air Room Air Room Air 05/05/19 00:00 Intake Total 2960 ml Balance 2960 ml Capillary Refill : Less Than 3 SecondsLess Than 3 Seconds Constitutional: AAO x 3, well-developed, well-nourished HEENT: EOMI, hearing is well preserved; No xanthelasmas are seen Neck: carotid pulses are 2 + bilaterally, with good upstrokes Respiratory: No accessory muscle use; other (good bilat air entry, a few scattered rhonchi, no crackles or wheezes) Cardiovascular: regular rate-rhythm, S1 and S2, systolic murmur (soft MARK at card base) Gastrointestinal: No tender; soft; No guarding, No rebound; audible bowel sounds Extremities: No clubbing, No cyanosis, No significant edema Neurologic/Psychiatric: oriented x 3, other (moves all limbs equally) Skin: No rash on exposed areas, No ulcerations on exposed areas Data Review Labs Laboratory Tests 05/04/19 13:13: Urine Color AMBERH, Urine Clarity SL CLOUDY, Urine pH 5.5, Urine Specific [place] >=1.030, Urine Protein TRACEH, Urine Glucose (UA) NEGATIVE, Urine Ketones NEGATIVE, Urine Nitrite NEGATIVE, Urine Bilirubin NEGATIVE, Urine Urobilinogen 1.0, Urine Leukocyte Esterase 1+H, Urine RBC (Auto) NEGATIVE, Urine RBC RARE, Urine WBC 2-5, Urine Squamous Epithelial Cells >50H, Urine Crystals NONE, Urine Bacteria MODERATEH, Urine Casts NONE, Urine Mucus NEGATIVE, Urine Culture Indicated YES 05/04/19 13:22: White Blood Count 8.4, Red Blood Count 4.14L, Hemoglobin 11.5, Hematocrit 36, Mean Corpuscular Volume 87, Mean Corpuscular Hemoglobin 28, Mean Corpuscular Hemoglobin Concent 32, Red Cell Distribution Width 14.4, Platelet Count 312, Mean Platelet Volume 11.3H, Neutrophils (%) (Auto) 71, Lymphocytes (%) (Auto) 18, Monocytes (%) (Auto) 7, Eosinophils (%) (Auto) 4, Basophils (%) (Auto) 1, Neutrophils # (Auto) 6.0, Lymphocytes # (Auto) 1.5, Monocytes # (Auto) 0.6, Eosinophils # (Auto) 0.3, Basophils # (Auto) 0.1, Sodium Level 135, Potassium Level 3.5L, Chloride Level 106, Carbon Dioxide Level 17L, Anion Gap 12, Blood Urea Nitrogen 25H, Creatinine 3.02H, Estimat Glomerular Filtration Rate 15, BUN/Creatinine Ratio 8, Glucose Level 86, Calcium Level 9.2, Corrected Calcium 9.7, Total Bilirubin 0.3, Aspartate Amino Transf (AST/SGOT) 12, Alanine Aminotransferase (ALT/SGPT) 14, Alkaline Phosphatase 142H, Total Protein 6.4, Albumin 3.4, Lipase 13 05/05/19 04:25: White Blood Count 6.6, Red Blood Count 3.64L, Hemoglobin 10.2L, Hematocrit 32L, Mean Corpuscular Volume 88, Mean Corpuscular Hemoglobin 28, Mean Corpuscular Hemoglobin Concent 32, Red Cell Distribution Width 14.7H, Platelet Count 252, Mean Platelet Volume 11.8H, Neutrophils (%) (Auto) 62, Lymphocytes (%) (Auto) 24, Monocytes (%) (Auto) 9, Eosinophils (%) (Auto) 4, Basophils (%) (Auto) 1, Neutrophils # (Auto) 4.1, Lymphocytes # (Auto) 1.6, Monocytes # (Auto) 0.6, Eosinophils # (Auto) 0.3, Basophils # (Auto) 0.0, Sodium Level 140, Potassium Level 4.1, Chloride Level 114H, Carbon Dioxide Level 19L, Anion Gap 7, Blood Urea Nitrogen 21H, Creatinine 2.39H, Estimat Glomerular Filtration Rate 20, BUN/Creatinine Ratio 9, Glucose Level 75, Calcium Level 8.6, Corrected Calcium 9.6, Total Bilirubin 0.3, Aspartate Amino Transf (AST/SGOT) 13, Alanine Aminotransferase (ALT/SGPT) 7, Alkaline Phosphatase 116, Total Protein 5.3L, Albumin 2.8L Microbiology 05/04/19 Urine Culture - Preliminary, Resulted Laboratory Tests 05/04/19 13:22 05/05/19 04:25 A/P-Cardiology Assessment/Admission Diagnosis TRAE-2 on CKD-3. 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 There is no evidence of intra-cranial hemorrhage, brain herniation, or midline shift on CT of the head on 07-15-18. Management of CVA is by Dr Mosquera Carotid artery disease - Per u/s of 07-15-18, there is mod bilat carotid arterial plaque, worse (50-70% stenosis) on the right UTI - management by Dr Mosquera Cardiac cath of July [address] Olvera showed multi-vessel dz - 60-70% mid-LAD involving origin of relatively sm caliber diag branch. 50-60% L Cx. RCA - large and dominant with 50% stenosis mid-vessel and 60% distal. LVEF 60%. Re ferred to Dr. Patel of cardiothoracic services at [facility] - medical tx advised at that time - has had no f/u Echo of 07/16/18: LVEF 45-50%, mod conc LVH, grade 1 caldwell dysfxn, PASP 25-30 mmHg H/O cervical cancer for which she has undergone chemo (last tx 12 years ago) H/O sleep apnea, non-compliant with CPAP tx HLD - statin tx followed by her PCP H/O sinus bradycardia and V-tach during ED visit in November 2017 - transferred to [facility] at that time Chronic diarrhea Reports chronic lymphedema to right leg Depression H/o lupus and gout (details unknown) followed and treated by pcp Discussion and Recomendations * Complex management due to multiple comorbidities (see above) * iv fluids recommended * Echo * Continue ASA and bb * I answered her CV-related questions in detail Clinical Quality Measures DVT/VTE Risk/Contraindication: Risk Factor Score Per Nursin RFS Level Per Nursing on Admit: 4+=Very High DIMITRI OLVERA MD FACP FAC CCDS May 05, 2019 13:04
--- NOTE | 2019-05-05 14:19 | NUR ---
"RD ASSESSMENT PMHx: CAD; hypercholesterolemia; HTN; renal failure; chronic diarrhea; lupus; CA(cervical,vaginal) PT INTERACTION: Pt was awake and pleasant during consult for MST score. Pt states current appetite is poor and that she hasn't eating anything since Friday/Friday. Note PO intake of 75% x1meal, per chart review. Pt states following a regular diet at home and has no issues with chewing/swallowing food. Pt states recent episodes of nausea, vomiting and diarrhea over the past several days. Note last BM was 05/05 and pt currently on bowel regimen of senna qd, per chart review. Pt states recent wt loss, but unsure of amount lost. Note unable to determine recent wt hx, per chart review. Though pt has had poor PO intake, pt does not meet criteria for malnutrition at this time, per ASPEN guidelines. ABNORMAL NUTRITION-RELATED LAB VALUES LOW: Pro 5.3; alb 2.8 HIGH: BUN 21; cr 2.39 Est. kcal needs: 3084-5687 kcal | 25-30 kcal/kg Est. Pro needs: 54-68 g Pro | 0.8-1.0 g Pro/kg PES STATEMENT: Inadequate oral intake (NI-2.1) related to nausea | vomiting | diarrhea as evidenced by pt itnerview INTERVENTION: Continue with current diet order of Clear Liquid diet. Advance diet as medically able and as tolerated. Discontinue current supplementation order of Ensure Enlive with meals TID, per pt tolerance. Will continue to follow and reassess as pt needs and status change. MONITOR/EVALUATE: PO Intake; Plan of Care; Hydration Status; Weight Status; Lab Values Andrew Bell, MS, RD, LD"
[2019-05-05 16:00] VITALS: BP 114/54
[2019-05-05 20:00] VITALS: BP 123/60
[2019-05-05 23:35] VITALS: BP 138/64
[2019-05-06] MEDS ORDERED: cefTRIAXone FOR IV USE 1,000 MG in WATER (STERILE) FOR INJECTION 10 ML IV SCH (02:43)
[2019-05-06 04:42] VITALS: BP 150/67
[2019-05-06 06:19] LABS: BASOPHILS % (AUTO) 0 % (0-10); EOSINOPHILS # (AUTO) 0.1 10^3/uL (0.0-0.3); EOSINOPHILS % (AUTO) 2 % (0-10); HEMATOCRIT 31 % (35-52); HEMOGLOBIN 9.7 G/DL (11.5-16.0); LYMPHOCYTES # (AUTO) 1.4 X 10^3 (1.0-4.0); LYMPHOCYTES % (AUTO) 23 % (12-44); MEAN CORPUSCULAR HEMOGLOBIN 28 PG (25-34); MEAN CORPUSCULAR HGB CONC 31 G/DL (32-36); MEAN CORPUSCULAR VOLUME 89 FL (80-99); MEAN PLATELET VOLUME 11.6 FL (7.4-10.4); MONOCYTES # (AUTO) 0.5 X 10^3 (0.0-1.0); MONOCYTES % (AUTO) 8 % (0-12); NEUTROPHILS # (AUTO) 4.1 X 10^3 (1.8-7.8); NEUTROPHILS % (AUTO) 67 % (42-75); PLATELET COUNT 247 10^3/uL (130-400); RED CELL DISTRIBUTION WIDTH 14.4 % (10.0-14.5); WHITE BLOOD COUNT 6.2 10^3/uL (4.3-11.0)
[2019-05-06 07:08] LABS: ALBUMIN 2.8 GM/DL (3.2-4.5); BILIRUBIN,TOTAL 0.2 MG/DL (0.1-1.0); CALCIUM 8.4 MG/DL (8.5-10.1); CREATININE SERUM 1.86 MG/DL (0.60-1.30); POTASSIUM 3.7 MMOL/L (3.6-5.0); TOTAL PROTEIN 5.3 GM/DL (6.4-8.2)
--- NOTE | 2019-05-06 07:51 | NUR ---
pt eliquis and Aspirin restarted. dr hernandez contacted regarding pt heparin. new orders received see order history.
[2019-05-06 08:00] VITALS: BP 122/69
[2019-05-06] MEDS ORDERED: APIXABAN 5 MG (ELIQUIS) TABLET PO SCH (09:00)
[2019-05-06] MEDS ORDERED: ASPIRIN 325 MG (5 GR) TABLET PO SCH (09:00)
[2019-05-06] MEDS: SENNA W/DOCUSATE (SENOKOT S) TABLET PO SCH (09:00)
[2019-05-06] MEDS: LACTATED RINGERS 1,000 ML IV SCH (09:11)
[2019-05-06] MEDS: predniSONE 10 MG TAB PO SCH (09:12)
[2019-05-06] MEDS: NICOTINE PATCH REMOVAL TP SCH (09:12)
[2019-05-06] MEDS: NICOTINE 21 MG (NICODERM) PATCH TD SCH (09:12)
[2019-05-06] MEDS: HYDROXYCHLOROQUINE 200 MG (PLAQUENIL) TAB PO SCH (09:12)
[2019-05-06] MEDS: meTOproloL SUCCINATE 50 MG (TOPROL XL) TAB PO SCH (09:12)
--- NOTE | 2019-05-06 11:07 | Discharge Summary ---
Discharge Summary Hospital Course Was the Problem List Reviewed?: Yes Problems/Dx: (1) Acute renal failure Status: Acute (2) Nausea vomiting and diarrhea Status: Acute (3) Gout Status: Acute (4) Chronic kidney disease (CKD) Status: Acute (5) Lupus (systemic lupus erythematosus) Status: Chronic (6) Hypertension Status: Chronic (7) Thrombosis, renal vein Status: Chronic (8) Hyperlipidemia Status: Chronic Hospital Course Date of Admission: May 04, 2019 at 14:31 Admission Diagnosis : Family Physician/Provider: Peng Meade Date of Discharge: 05/06/19 Discharge Diagnosis: ARF, N/V, CRI, CAD, PVD Hospital Course: Hospital Course: Pt had an uneventful observation hospital course for three days. She was admitted for nausea and vomiting acute kidney injury, creatinine of 3. Pt was placed on aggressive IV fluids. Dr. Rosas was consulted. UTI with E.coli and normal taya treated with Rocephin completely at time of DC and pt was deemed stable at time of DC and felt really good about it. She was discharged in improved condition. Labs and Pending Lab Test: Laboratory Tests 05/06/19 05:56: White Blood Count 6.2, Red Blood Count 3.50L, Hemoglobin 9.7L, Hematocrit 31L, Mean Corpuscular Volume 89, Mean Corpuscular Hemoglobin 28, Mean Corpuscular Hemoglobin Concent 31L, Red Cell Distribution Width 14.4, Platelet Count 247, Mean Platelet Volume 11.6H, Neutrophils (%) (Auto) 67, Lymphocytes (%) (Auto) 23, Monocytes (%) (Auto) 8, Eosinophils (%) (Auto) 2, Basophils (%) (Auto) 0, Neutrophils # (Auto) 4.1, Lymphocytes # (Auto) 1.4, Monocytes # (Auto) 0.5, Eosinophils # (Auto) 0.1, Basophils # (Auto) 0.0, Sodium Level 141, Potassium Level 3.7, Chloride Level 115H, Carbon Dioxide Level 17L, Anion Gap 9, Blood Urea Nitrogen 16, Creatinine 1.86H, Estimat Glomerular Filtration Rate 27, BUN/Creatinine Ratio 9, Glucose Level 79, Calcium Level 8.4L, Corrected Calcium 9.4, Total Bilirubin 0.2, Aspartate Amino Transf (AST/SGOT) 11, Alanine Aminotransferase (ALT/SGPT) 9, Alkaline Phosphatase 108, Total Protein 5.3L, Albumin 2.8L Microbiology 05/04/19 Urine Culture - Preliminary, Resulted Mixed Bacterial Taya With Escherichia coli Home Meds Active Reported Lisinopril 10 Mg Tablet 10 Mg PO DAILY LAST FILLED #30 03-19-19 Eliquis (Apixaban) 5 Mg Tablet 5 Mg PO DAILY LAST FILLED #30 03-19-19 Aspirin EC (Aspirin) 325 Mg Tablet.dr 325 Mg PO DAILY Atorvastatin Calcium 20 Mg Tablet 20 Mg PO HS LAST FILLED #90 10-09-18 Metoprolol Succinate 50 Mg Tab.er.24h 50 Mg PO DAILY LAST FILLED #90 01-23-19 Viibryd (Vilazodone Hydrochloride) 20 Mg Tablet 20 Mg PO DAILY LAST FILLED #30 03-23-19 Hydrocodone-Acetamin 5-325 mg (Hydrocodone/Acetaminophen) 1 Each Tablet 1 Tab PO TID PRN Ondansetron HCl 4 Mg Tablet 4-8 Mg PO BID PRN Diphenoxylate-Atrop 2.5-0.025 (Diphenoxylate HCl/Atropine) 1 Each Tablet 1 Tab PO QID PRN LAST FILLED #30 10-03-18 Hydroxychloroquine Sulfate 200 Mg Tablet 400 Mg PO DAILY LAST FILLED #60 03-19-19 TAKES 2 (200MG) TABLETS Prednisone 10 Mg Tab 10 Mg PO DAILY LAST FILLED #30 03-23-19 Assessment/Pt Instructions [facility] 1 week Discharge Planning: <30 minutes discharge planning Discharge Instructions Discharge Diet: No Restrictions Activity as Tolerated: Yes Discharge Physical Examination Vital Signs Vital Signs Date Time Temp Pulse Resp B/P (MAP) Pulse Ox O2 Delivery O2 Flow Rate FiO2 05/06/19 08:00 36.2 64 20 122/69 (86) 99 Room Air General Appearance: No Apparent Distress, WD/WN, Chronically ill Respiratory: Lungs Clear Extremity: Normal Capillary Refill, Normal Inspection, Normal Range of Motion, Non Tender, No Calf Tenderness, No Pedal Edema Skin: Normal Color, Warm/Dry Neurologic/Psychiatric: Alert, Oriented x3, No Motor/Sensory Deficits, Normal Mood/Affect Allergies: Coded Allergies: No Known Drug Allergies (Verified , 10/21/08) Discharge Summary Date of Admission May 04, 2019 at 14:31 Date of Discharge Discharge Date: May 06, 2019 Admission Diagnosis Assessment: Nausea and vomiting for 7 days (1) Acute renal failure (2) Lupus (systemic lupus erythematosus) (3) Gout (4) Thrombosis, renal vein Plan: IVF Observation Dr Rosas consultation Discharge Diagnosis Assessment: Nausea and vomiting for 7 days (1) Acute renal failure (2) Lupus (systemic lupus erythematosus) (3) Gout (4) Thrombosis, renal vein Plan: IVF Observation Dr Rosas consultation (1) Acute renal failure Status: Acute (2) Nausea vomiting and diarrhea Status: Acute (3) Gout Status: Acute (4) Chronic kidney disease (CKD) Status: Acute (5) Lupus (systemic lupus erythematosus) Status: Chronic (6) Hypertension Status: Chronic (7) Thrombosis, renal vein Status: Chronic (8) Hyperlipidemia Status: Chronic Clinical Quality Measures DVT/VTE Risk/Contraindication: Risk Factor Score Per Nursin RFS Level Per Nursing on Admit: 4+=Very High SERINA DEL REAL DO May 06, 2019 11:07
--- NOTE | 2019-05-06 11:57 | Progress Note - Cardiology ---
Cardiology SOAP Progress Note Subjective: Feels generally better today No cp or palp or syncope No N/V/D today No swelling Objective: I&O/Vital Signs 05/06/19 05/06/19 05/06/19 04:42 08:00 08:00 Temp 36.3 36.2 Pulse 71 64 Resp 18 20 B/P (MAP) 150/67 (94) 122/69 (86) Pulse Ox 98 99 99 O2 Delivery Room Air Room Air Room Air 05/06/19 00:00 Intake Total 2620 ml Output Total 800 ml Balance 1820 ml Weight (Pounds): 161 Weight (Ounces): 0 Weight (Calculated Kilograms): 73.242608 Constitutional: AAO x 3, well-developed, well-nourished Respiratory: No accessory muscle use; other (good bilat air entry, a few scattered rhonchi, no crackles or wheezes) Cardiovascular: regular rate-rhythm, S1 and S2, systolic murmur (soft MARK at card base) Gastrointestional: No tender; soft; No guarding, No rebound; audible bowel sounds Extremities: No clubbing, No cyanosis, No significant edema Neurologic/Psychiatric: oriented x 3, other (moves all limbs equally) Skin: No rash on exposed areas, No ulcerations on exposed areas Results/Procedures: Labs Laboratory Tests 05/06/19 05:56: White Blood Count 6.2, Red Blood Count 3.50L, Hemoglobin 9.7L, Hematocrit 31L, Mean Corpuscular Volume 89, Mean Corpuscular Hemoglobin 28, Mean Corpuscular Hemoglobin Concent 31L, Red Cell Distribution Width 14.4, Platelet Count 247, Mean Platelet Volume 11.6H, Neutrophils (%) (Auto) 67, Lymphocytes (%) (Auto) 23, Monocytes (%) (Auto) 8, Eosinophils (%) (Auto) 2, Basophils (%) (Auto) 0, Neutrophils # (Auto) 4.1, Lymphocytes # (Auto) 1.4, Monocytes # (Auto) 0.5, Eosinophils # (Auto) 0.1, Basophils # (Auto) 0.0, Sodium Level 141, Potassium Level 3.7, Chloride Level 115H, Carbon Dioxide Level 17L, Anion Gap 9, Blood Urea Nitrogen 16, Creatinine 1.86H, Estimat Glomerular Filtration Rate 27, BUN/Creatinine Ratio 9, Glucose Level 79, Calcium Level 8.4L, Corrected Calcium 9.4, Total Bilirubin 0.2, Aspartate Amino Transf (AST/SGOT) 11, Alanine Aminotransferase (ALT/SGPT) 9, Alkaline Phosphatase 108, Total Protein 5.3L, Albumin 2.8L Microbiology 05/04/19 Urine Culture - Final, Complete Mixed Bacterial Taya With Escherichia coli Lactobacillus gasseri Laboratory Tests 05/04/19 13:22 05/05/19 04:25 05/06/19 05:56 A/P: Assessment: TRAE-2 on CKD-3. 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 There is no evidence of intra-cranial hemorrhage, brain herniation, or midline shift on CT of the head on 07-15-18. Management of CVA is by Dr Mosquera Carotid artery disease - Per u/s of 07-15-18, there is mod bilat carotid arterial plaque, worse (50-70% stenosis) on the right UTI - management by Dr Mosquera Cardiac cath of July [address] Whitten showed multi-vessel dz - 60-70% mid-LAD involving origin of relatively sm caliber diag branch. 50-60% L Cx. RCA - large and dominant with 50% stenosis mid-vessel and 60% distal. LVEF 60%. Referred to Dr. Patel of cardiothoracic services at [facility] - medical tx advised at that time - has had no f/u Echo of 05/05/19: LVEF 50-55, mild conc LVH, mild MR, reduced RV function, RVSP 20 mmHg H/O cervical cancer for which she has undergone chemo (last tx 12 years ago) H/O sleep apnea, non-compliant with CPAP tx HLD - statin tx followed by her PCP H/O sinus bradycardia and V-tach during ED visit in November 2017 - transferred to [facility] at that time Chronic diarrhea Reports chronic lymphedema to right leg Depression H/o lupus and gout (details unknown) followed and treated by pcp Plan: * Cardiac status clinically stable * I answered her CV-related questions in detail DIMITRI WHITTEN MD FACP FACC CCDS May 06, 2019 11:57
[2019-05-06 12:00] VITALS: BP 124/69
--- NOTE | 2019-05-06 14:09 | NUR ---
CM/SS: Visited with pt as per consult related to meals Plan: Pt will discharge to home Summary: Pt is reading a book when this worker goes to visit. Pt reports needing information about delivered meals. Pt is given contact information about meal delivery in the [facility]. She is given the phone number of [phone]. Pt verbalizes understanding as to contacting the meal location. She also reports having medicaid [employer]. She is encouraged to call [employer] when she returns home as they may offer meals and she may qualify. Verbalizes understanding.
[2019-05-06] MEDS: LOPERAMIDE 2 MG (IMODIUM) TABLET PO PRN (17:35)
[2019-05-06 18:15] VITALS: BP 124/69
== END 2019-05-06 18:15 | disposition home or self-care (01) ==
LOC: EDUNIT# 12:35 → ER 12:36 → 4TH 14:31
PROVIDERS: ADMIT Internal Medicine; ATTEND Internal Medicine
DX: N17.9 Acute kidney failure, unspecified (principal); M10.9 Gout, unspecified; I12.9 Hypertensive chronic kidney disease with stage 1 through stage 4 chronic kidney disease, or unspecified chronic kidney disease; N18.9 Chronic kidney disease, unspecified; L93.0 Discoid lupus erythematosus; E78.5 Hyperlipidemia, unspecified; F41.9 Anxiety disorder, unspecified; I82.3 Embolism and thrombosis of renal vein; Z79.01 Long term (current) use of anticoagulants; Z79.82 Long term (current) use of aspirin; Z79.2 Long term (current) use of antibiotics; Z79.891 Long term (current) use of opiate analgesic; Z79.899 Other long term (current) drug therapy; Z77.22 Contact with and (suspected) exposure to environmental tobacco smoke (acute) (chronic); Z90.49 Acquired absence of other specified parts of digestive tract; E78.00 Pure hypercholesterolemia, unspecified; I25.10 Atherosclerotic heart disease of native coronary artery without angina pectoris; Z86.73 Personal history of transient ischemic attack (TIA), and cerebral infarction without residual deficits; Z92.21 Personal history of antineoplastic chemotherapy; Z92.3 Personal history of irradiation
CPT/HCPCS: 36415; 80053; 81000; 83690; 85025; 87077; 87088; 87186; 93005; 93306; 96361; 96374; G0378

== ENCOUNTER 2019-06-05 19:48 | Observation (INO) | payer MEDICARE ==
[~2019-06-05] VITALS: Ht 153 cm; Wt 66.8 kg
[~2019-06-05 19:48] MED LIST changes: +ASPI325T32 PO; -HYDR-3812 PO; +LISI10TA2 PO; +ONDA-105 PO; -ONDA4TAB10 PO
[2019-06-05] MEDS ORDERED: ASPIRIN 81 MG CHEW (CHILDREN'S ASA) PO ONE (20:00)
[2019-06-05 20:09] LABS: BASOPHILS % (AUTO) 0 % (0-10); EOSINOPHILS # (AUTO) 0.2 10^3/uL (0.0-0.3); EOSINOPHILS % (AUTO) 2 % (0-10); HEMATOCRIT 37 % (35-52); HEMOGLOBIN 11.8 G/DL (11.5-16.0); LYMPHOCYTES # (AUTO) 3.3 X 10^3 (1.0-4.0); LYMPHOCYTES % (AUTO) 32 % (12-44); MEAN CORPUSCULAR HEMOGLOBIN 29 PG (25-34); MEAN CORPUSCULAR HGB CONC 32 G/DL (32-36); MEAN CORPUSCULAR VOLUME 90 FL (80-99); MEAN PLATELET VOLUME 11.3 FL (7.4-10.4); MONOCYTES # (AUTO) 0.8 X 10^3 (0.0-1.0); MONOCYTES % (AUTO) 8 % (0-12); NEUTROPHILS # (AUTO) 5.8 X 10^3 (1.8-7.8); NEUTROPHILS % (AUTO) 57 % (42-75); PLATELET COUNT 236 10^3/uL (130-400); RED CELL DISTRIBUTION WIDTH 15.5 % (10.0-14.5); WHITE BLOOD COUNT 10.2 10^3/uL (4.3-11.0)
--- NOTE | 2019-06-05 20:22 | Diagnostic Imaging Report ---
INDICATION: Chest pain, hypertension Upright chest shows normal heart size and vascularity. The lungs are clear. There is no effusion or pneumothorax. IMPRESSION: No acute abnormality is seen with no change from 12/25/2018. Dictated by: Dictated on workstation # [id number]
[2019-06-05 20:29] LABS: INR 1.1 (0.8-1.4); PROTHROMBIN TIME PATIENT 14.7 SEC (12.2-14.7)
[2019-06-05 20:30] LABS: ALBUMIN 3.6 GM/DL (3.2-4.5); BILIRUBIN,TOTAL 0.3 MG/DL (0.1-1.0); CALCIUM 8.7 MG/DL (8.5-10.1); CREATININE SERUM 2.23 MG/DL (0.60-1.30); POTASSIUM 4.4 MMOL/L (3.6-5.0); TOTAL PROTEIN 6.3 GM/DL (6.4-8.2)
--- NOTE | 2019-06-05 21:34 | ED Chest Pain ---
General Chief Complaint: Chest Pain Stated Complaint: ANXIETY Nursing Triage Note: PT TO ED PER EMS FOR C/O ANXIETY. PER EMS, CALLED TO PT'S RESIDENCE FOR CP ET HYPERTENSION THAT RESOLVED AFTER BEING W/ EMS FOR SHORT TIME. PT DENIES CP TO STAFF BUT STATES THE PAIN WAS "IN HER JAW". PT DOES REPORT FREQUENT PANIC ATTACKS. NO OTHER C/O VOICED Nursing Sepsis Screen: No Definite Risk Source: patient Exam Limitations: no limitations History of Present Illness Date Seen by Provider: Jun 05, 2019 Time Seen by Provider: 19:56 Initial Comments Here with report of chest pain in the left upper chest and jaw pain after getting anxious. She is unsure she was anxious first or had the chest pain first. She did take Vistaril. She did call EMS and chest pain resolved after speaking with EMS. Denies nausea, vomiting, sweating, weakness or dizziness. She is overall feeling better now. Does have history of hypertension and anxiety as well as panic attacks. Timing/Duration: 1-3 hours, resolved prior to arrival Severity/Quality: mild, aching Location: central Radiation: jaw Activities at Onset: emotional stress Prior CP/Workup: cardiac cath, echocardiography, stress test Modifying Factors: improves with rest ASA po SUBJECT SCIENTIFIC RESEARCH: No NTG SL SUBJECT SCIENTIFIC RESEARCH: No Associated Symptoms: No abdominal pain, No back pain, No diaphoresis, No dizziness; edema, fatigue; No fever/chills, No nausea/vomiting, No shortness of breath, No weakness Allergies and Home Medications Allergies Coded Allergies: No Known Drug Allergies (Verified , 10/21/08) Home Medications Apixaban 5 Mg Tablet, 5 MG PO DAILY, (Reported) LAST FILLED #30 03-19-19 Aspirin 325 Mg Tablet.dr, 325 MG PO DAILY, (Reported) Atorvastatin Calcium 20 Mg Tablet, 20 MG PO HS, (Reported) LAST FILLED #90 10-09-18 Diphenoxylate HCl/Atropine 1 Each Tablet, 1 TAB PO QID PRN for DIARRHEA, (Reported) LAST FILLED #30 10-03-18 Hydrocodone Bit/Acetaminophen 1 Each Tablet, 1 TAB PO TID PRN for PAIN-MODERATE, (Reported) Hydroxychloroquine Sulfate 200 Mg Tablet, 400 MG PO DAILY, (Reported) LAST FILLED #60 03-19-19 TAKES 2 (200MG) TABLETS Lisinopril 10 Mg Tablet, 10 MG PO DAILY, (Reported) LAST FILLED #30 03-19-19 Metoprolol Succinate 50 Mg Tab.er.24h, 50 MG PO DAILY, (Reported) LAST FILLED #90 01-23-19 Ondansetron HCl 4 Mg Tablet, 4-8 MG PO BID PRN for NAUSEA/VOMITING-1ST LINE, (Reported) Prednisone 10 Mg Tab, 10 MG PO DAILY, (Reported) LAST FILLED #30 03-23-19 Vilazodone Hydrochloride 20 Mg Tablet, 20 MG PO DAILY, (Reported) LAST FILLED #30 03-23-19 Patient Home Medication List Home Medication List Reviewed: Yes Review of Systems Review of Systems Constitutional: see HPI; No chills, No fever EENTM: No Symptoms Reported Respiratory: No Symptoms Reported Cardiovascular: See HPI Gastrointestinal: No Symptoms Reported Genitourinary: No Symptoms Reported Musculoskeletal: no symptoms reported Skin: no symptoms reported Psychiatric/Neurological: See HPI, Anxiety; Denies Headache Endocrine: No Symptoms Reported All Other Systems Reviewed Negative Unless Noted: Yes Past Bafecmu-Exxaho-Rrjsqe Hx Past Med/Social Hx: Reviewed Nursing Past Med/Soc Hx Patient Social History Alcohol Use: Denies Use Recreational Drug Use: No Smoking Status: Current Everyday Smoker Type Used: Cigarettes 2nd Hand Smoke Exposure: Yes Recent Foreign Travel: No Contact w/Someone Who Travel: No Recent Infectious Disease Expo: No Recent Hopitalizations: No (CVA 4-19) Physical Abuse: No Sexual Abuse: No Mistreated: No Immunizations Up To Date PED Vaccines UTD: No Date of Pneumonia Vaccine: Jan 22, 2019 Date of Influenza Vaccine: Jan 22, 2019 Seasonal Allergies Seasonal Allergies: No Past Medical History Surgeries: Yes Abdominal, Adenoidectomy, Cardiac, Gallbladder, Hysterectomy, Oophorectomy, Orthopedic, Tonsillectomy Respiratory: No Pneumonia Currently Using CPAP: No Currently Using BIPAP: No Cardiac: Yes (history of aortic thrombus) Coronary Artery Disease, High Cholesterol, Hypertension Neurological: Yes Neuropathy, Stroke 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 Disorders: Yes (HX OF VULVAR CA--MODIFIED RADICAL VULVECTOMY 1991) 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 Sexually Transmitted Disease: No HIV/AIDS: No Genitourinary: Yes (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) Renal Failure Gastrointestinal: Yes Chronic Diarrhea, Gall Bladder Disease Musculoskeletal: Yes Arthritis Endocrine: Yes Lupus HEENT: No Loss of Vision: Left Hearing Impairment: Denies Cancer: Yes Cervical, Vaginal Did You Recieve Any Treatments: Yes What Type of Treatment Did You: Chemotherapy, Radiation, Surgical Intervention Psychosocial: Yes Anxiety Integumentary: No Blood Disorders: No Adverse Reaction/Blood Tranf: No Family Medical History Reviewed Nursing Family Hx Arthritis 19 FATHER 19 MOTHER Cardiovascular disease 19 MOTHER Completed stroke 19 MOTHER maternal grandmother Congenital heart disease 19 MOTHER Diabetes mellitus 19 MOTHER maternal grandmother Hypercholesterolemia 19 MOTHER maternal grandmother Hypertension 19 MOTHER maternal grandmother Myocardial infarction maternal grandmother Tuberculosis paternal great grandfather No Pertinent Family Hx Physical Exam Vital Signs Vital Signs - First Documented 06/05/19 19:53 Temp 36.8 Pulse 63 Resp 20 B/P (MAP) 132/68 (89) Pulse Ox 97 O2 Delivery Room Air Capillary Refill : Less Than 3 Seconds Height, Weight, BMI Height: 5'0.00" Weight: 161lbs. 0oz. 73.914725vm; 29.00 BMI Method:Stated General Appearance: No Apparent Distress, WD/WN HEENT: PERRL/EOMI, Pharynx Normal Neck: Non Tender, Supple Respiratory: Lungs Clear, Normal Breath Sounds Cardiovascular: Regular Rate, Rhythm, No Murmur Gastrointestinal: Non Tender, Soft Extremity: Non Tender, No Calf Tenderness, Pedal Edema (right greater than left but states this is typical and less than normal) Neurologic/Psychiatric: Alert, Oriented x3 Skin: Normal Color, Warm/Dry Progress/Results/Core Measures Results/Orders Lab Results Laboratory Tests Test 06/05/19 20:00 06/05/19 21:52 Range/Units White Blood Count 10.2 4.3-11.0 10^3/uL Red Blood Count 4.14 L 4.35-5.85 10^6/uL Hemoglobin 11.8 11.5-16.0 G/DL Hematocrit 37 35-52 % Mean Corpuscular Volume 90 80-99 FL Mean Corpuscular Hemoglobin 29 25-34 PG Mean Corpuscular Hemoglobin Concent 32 32-36 G/DL Red Cell Distribution Width 15.5 H 10.0-14.5 % Platelet Count 236 130-400 10^3/uL Mean Platelet Volume 11.3 H 7.4-10.4 FL Neutrophils (%) (Auto) 57 42-75 % Lymphocytes (%) (Auto) 32 12-44 % Monocytes (%) (Auto) 8 0-12 % Eosinophils (%) (Auto) 2 0-10 % Basophils (%) (Auto) 0 0-10 % Neutrophils # (Auto) 5.8 1.8-7.8 X 10^3 Lymphocytes # (Auto) 3.3 1.0-4.0 X 10^3 Monocytes # (Auto) 0.8 0.0-1.0 X 10^3 Eosinophils # (Auto) 0.2 0.0-0.3 10^3/uL Basophils # (Auto) 0.0 0.0-0.1 10^3/uL Prothrombin Time 14.7 12.2-14.7 SEC INR Comment 1.1 0.8-1.4 Activated Partial Thromboplast Time 25 24-35 SEC Sodium Level 140 135-145 MMOL/L Potassium Level 4.4 3.6-5.0 MMOL/L Chloride Level 110 H 98-107 MMOL/L Carbon Dioxide Level 17 L 21-32 MMOL/L Anion Gap 13 5-14 MMOL/L Blood Urea Nitrogen 33 H 7-18 MG/DL Creatinine 2.23 H 0.60-1.30 MG/DL Estimat Glomerular Filtration Rate 22 BUN/Creatinine Ratio 15 Glucose Level 90 70-105 MG/DL Calcium Level 8.7 8.5-10.1 MG/DL Corrected Calcium 9.0 8.5-10.1 MG/DL Magnesium Level 2.0 1.6-2.4 MG/DL Total Bilirubin 0.3 0.1-1.0 MG/DL Aspartate Amino Transf (AST/SGOT) 13 5-34 U/L Alanine Aminotransferase (ALT/SGPT) 8 0-55 U/L Alkaline Phosphatase 69 40-136 U/L Myoglobin 51.2 10.0-92.0 NG/ML Troponin I < 0.028 0.047 H <0.028 NG/ML Total Protein 6.3 L 6.4-8.2 GM/DL Albumin 3.6 3.2-4.5 GM/DL My Orders Orders - SUJATA LAGUERRE MD Cbc With Automated Diff (06/05/19 19:56) Magnesium (06/05/19 19:56) Chest 1 View, Ap/Pa Only (06/05/19 19:56) Ekg Tracing (06/05/19 19:56) Comprehensive Metabolic Panel (06/05/19 19:56) Myoglobin Serum (06/05/19 19:56) Protime With Inr (06/05/19 19:56) Partial Thromboplastin Time (06/05/19 19:56) O2 (06/05/19 19:56) Monitor-Rhythm Ecg Trace Only (06/05/19 19:56) Lipid Panel (06/06/19 06:00) Ed Iv/Invasive Line Start (06/05/19 19:56) Troponin I (06/05/19 19:56) Aspirin Chewable Tablet (Baby Aspirin Ch (06/05/19 20:00) Troponin I (06/05/19 21:40) Medications Given in ED Current Medications Medications Dose Ordered Sig/Kenneth Route Start Time Stop Time Status Last Admin Dose Admin Aspirin 324 mg ONCE ONCE PO 06/05/19 20:00 06/05/19 20:01 DC 06/05/19 20:04 324 MG Vital Signs/I&O 06/05/19 06/05/19 19:53 20:09 Temp 36.8 Pulse 63 Resp 20 B/P (MAP) 132/68 (89) Pulse Ox 97 O2 Delivery Room Air Room Air Blood Pressure Mean: 89 Progress Progress Note : Progress Note Seen and evaluated. IV, labs, chest x-ray, EKG and ASA 324 mg by mouth ordered. Overall chest pain-free. Reevaluation shows that she remains chest pain free and she is comfortable. We will do to our role. She does admit that sometimes she will get a panic attack very similar but wanted to be sure. Continue to monitor. 2137: Remains chest pain-free. Pending repeat troponin. 2241: Repeat troponin has slightly elevated at 0.042. Given this slight elevation but arise, further evaluation as indicated. I did discuss the case with Dr. Solitario and he agrees to see the patient in consult, on-call for Dr. Olvera. I did discuss the case with Dr. Martínez who accepts patient for admission on-call for [facility]. I discussed with the patient who agrees with plan. She remains chest pain-free. Due to her history of renal dysfunction, we will go ahead and give IV fluids overnight. Initial ECG Impression Date: Jun 05, 2019 Initial ECG Impression Time: 20:02 Initial ECG Rate: 57 Initial ECG Rhythm: Normal Sinus Comment Sinus rhythm with left ventricular hypertrophy. Left axis deviation with nonspecific intraventricular conduction delay appearing early left bundle branch block. Similar to previous of 05/06/19. No evidence of ST elevation WI. Interpreted by me. Diagnostic Imaging Diagonstic Imaging: Xray Comments [facility]. [place], [place] NAME: EUGENIO PARKER [facility] REC#: [id number] PT STATUS: REG ER : 1945 PHYSICIAN: SUJATA LAGUERRE MD ADMIT DATE: 06/05/19/ER Signed Date of Exam:06/05/19 CHEST 1 VIEW, AP/PA ONLY INDICATION: Chest pain, hypertension Upright chest shows normal heart size and vascularity. The lungs are clear. There is no effusion or pneumothorax. IMPRESSION: No acute abnormality is seen with no change from 12/25/2018. Dictated by: Dictated on workstation # [id number] Dict: 06/05/192019 Trans: 06/05/192104 [facility] [id number] Interpreted by: DAI SHEEHAN MD Electronically signed by: DAI SHEEHAN MD 06/05/192104 Departure Communication (Admissions) Time/Spoke to Admitting Phy: 22:42 Time/Spoke to Consulting Phy: 22:39 Impression Primary Impression: Chest pain Qualified Codes: R07.9 - Chest pain, unspecified Additional Impression: Elevated troponin Disposition: ADMITTED INPATIENT Condition: Stable Admissions Decision to Admit Reason: Admit from ER (General) Decision to Admit/Date: Jun 05, 2019 Time/Decision to Admit Time: 22:39 Departure-Patient Inst. [place]: [facility] [place] Primary Care Physician CHRISTA GLORIA (Family) Primary Care Physician SUJATA LAGUERRE MD Jun 05, 2019 21:34
[2019-06-05] MEDS ORDERED: LACTATED RINGERS 1,000 ML IV ONE (23:34)
[2019-06-05 23:41] VITALS: BP 206/78
[2019-06-05] MEDS ORDERED: NITROGLYCERIN 0.4 MG SL TABS BTL 25'S SL PRN (23:45)
[2019-06-05] MEDS ORDERED: ONDANSETRON 4 MG/2 ML (SDV) Z0FRAN IV PRN (23:45)
[2019-06-05] MEDS ORDERED: CATHETER FLUSH 10 ML SYR IV PRN (23:45)
[2019-06-05] MEDS ORDERED: LACTATED RINGERS 1,000 ML IV SCH (23:45)
[2019-06-05 23:49] VITALS: BP 148/75
[2019-06-06] VITALS (11 sets, daily range): BP systolic 135–193; BP diastolic 54–84
[2019-06-06 03:23] LABS: WHITE BLOOD COUNT 8.6 10^3/uL (4.3-11.0)
[2019-06-06 03:24] LABS: BASOPHILS % (AUTO) 0 % (0-10); EOSINOPHILS # (AUTO) 0.2 10^3/uL (0.0-0.3); EOSINOPHILS % (AUTO) 2 % (0-10); HEMATOCRIT 37 % (35-52); HEMOGLOBIN 11.4 G/DL (11.5-16.0); LYMPHOCYTES # (AUTO) 2.8 X 10^3 (1.0-4.0); LYMPHOCYTES % (AUTO) 33 % (12-44); MEAN CORPUSCULAR HEMOGLOBIN 28 PG (25-34); MEAN CORPUSCULAR HGB CONC 31 G/DL (32-36); MEAN CORPUSCULAR VOLUME 91 FL (80-99); MEAN PLATELET VOLUME 11.6 FL (7.4-10.4); MONOCYTES # (AUTO) 0.8 X 10^3 (0.0-1.0); MONOCYTES % (AUTO) 9 % (0-12); NEUTROPHILS # (AUTO) 4.8 X 10^3 (1.8-7.8); NEUTROPHILS % (AUTO) 56 % (42-75); PLATELET COUNT 224 10^3/uL (130-400); RED CELL DISTRIBUTION WIDTH 15.6 % (10.0-14.5)
[2019-06-06 03:48] LABS: ALBUMIN 3.5 GM/DL (3.2-4.5); BILIRUBIN,TOTAL 0.3 MG/DL (0.1-1.0); CALCIUM 8.6 MG/DL (8.5-10.1); CREATININE SERUM 1.98 MG/DL (0.60-1.30); POTASSIUM 4.2 MMOL/L (3.6-5.0); TOTAL PROTEIN 5.8 GM/DL (6.4-8.2)
[2019-06-06] MEDS ORDERED: CATHETER FLUSH 10 ML SYR IV SCH (06:00)
--- NOTE | 2019-06-06 08:48 | Consultation-Cardiology ---
HPI-Cardiology Cardiology Consultation Date of Consultation 06/06/19 Date of Admission Time Seen by Provider: 08:41 Indication: Chest pain HPI 73-year-old lady with history of coronary artery disease, hypertension 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, chronic kidney disease, started to have chest pain yesterday lasted for about an hour described as dull in nature in the retrosternal area radiating to the jaw. Currently feeling better, denied any active chest pain, reporting occasional episode of chest pain. No palpitation. No syncope. She is an active smoker and still smoking. Noted to have mild elevation in her troponin, we had a long discussion regarding her history of multivessel coronary artery disease and she was referred in 2008 for bypass surgery, recommendation for conservative management, currently her kidney functions are worse. I offered her cardiac catheterization versus medical therapy, patient prefer medical therapy, I offered to aggressive hydration then proceed with a catheter and she still prefer conservative management. Home Medications & Allergies Allergies: Coded Allergies: No Known Drug Allergies (Verified , 10/21/08) Home Medication List Reviewed: Yes UMB-Svixkq-Eacymo Hx Patient Social History Marital Status: Employed/Student: retired Alcohol Use: Denies Use Recreational Drug Use: No Smoking Status: Current Everyday Smoker Type Used: Cigarettes 2nd Hand Smoke Exposure: Yes Recent Foreign Travel: No Recent Infectious Disease Expo: No Recent Hopitalizations: No (CVA 4-19) Immunizations Up To Date Date of Pneumonia Vaccine: Jan 22, 2019 Date of Influenza Vaccine: Jan 22, 2019 Past Medical History Discussed below Family Medical History Significant Family History: No Pertinent Family Hx Family History: Arthritis 19 FATHER 19 MOTHER Cardiovascular disease 19 MOTHER Completed stroke 19 MOTHER maternal grandmother Congenital heart disease 19 MOTHER Diabetes mellitus 19 MOTHER maternal grandmother Hypercholesterolemia 19 MOTHER maternal grandmother Hypertension 19 MOTHER maternal grandmother Myocardial infarction maternal grandmother Tuberculosis paternal great grandfather Review of Systems-General Review of Systems Constitutional: see HPI; No chills, No fever EENTM: see HPI, no symptoms reported Respiratory: no symptoms reported, see HPI Cardiovascular: see HPI, chest pain, edema (Lymphedema on the right leg); No Hx of Intervention, No palpitations, No syncope, No vascular heart diseas, No other Gastrointestinal: no symptoms reported, see HPI Genitourinary: no symptoms reported, see HPI Musculoskeletal: no symptoms reported Skin: no symptoms reported Psychiatric/Neurological: See HPI, Anxiety; Denies Headache All Other Systems Reviewed Negative Unless Noted: Yes Reviewed Test Results Reviewed Test Results Lab Laboratory Tests Test 06/05/19 20:00 06/05/19 21:52 06/06/19 03:03 Range/Units White Blood Count 10.2 8.6 4.3-11.0 10^3/uL Red Blood Count 4.14 L 4.07 L 4.35-5.85 10^6/uL Hemoglobin 11.8 11.4 L 11.5-16.0 G/DL Hematocrit 37 37 35-52 % Mean Corpuscular Volume 90 91 80-99 FL Mean Corpuscular Hemoglobin 29 28 25-34 PG Mean Corpuscular Hemoglobin Concent 32 31 L 32-36 G/DL Red Cell Distribution Width 15.5 H 15.6 H 10.0-14.5 % Platelet Count 236 224 130-400 10^3/uL Mean Platelet Volume 11.3 H 11.6 H 7.4-10.4 FL Neutrophils (%) (Auto) 57 56 42-75 % Lymphocytes (%) (Auto) 32 33 12-44 % Monocytes (%) (Auto) 8 9 0-12 % Eosinophils (%) (Auto) 2 2 0-10 % Basophils (%) (Auto) 0 0 0-10 % Neutrophils # (Auto) 5.8 4.8 1.8-7.8 X 10^3 Lymphocytes # (Auto) 3.3 2.8 1.0-4.0 X 10^3 Monocytes # (Auto) 0.8 0.8 0.0-1.0 X 10^3 Eosinophils # (Auto) 0.2 0.2 0.0-0.3 10^3/uL Basophils # (Auto) 0.0 0.0 0.0-0.1 10^3/uL Prothrombin Time 14.7 12.2-14.7 SEC INR Comment 1.1 0.8-1.4 Activated Partial Thromboplast Time 25 24-35 SEC Sodium Level 140 139 135-145 MMOL/L Potassium Level 4.4 4.2 3.6-5.0 MMOL/L Chloride Level 110 H 110 H 98-107 MMOL/L Carbon Dioxide Level 17 L 18 L 21-32 MMOL/L Anion Gap 13 11 5-14 MMOL/L Blood Urea Nitrogen 33 H 34 H 7-18 MG/DL Creatinine 2.23 H 1.98 H 0.60-1.30 MG/DL Estimat Glomerular Filtration Rate 22 25 BUN/Creatinine Ratio 15 17 Glucose Level 90 74 70-105 MG/DL Calcium Level 8.7 8.6 8.5-10.1 MG/DL Corrected Calcium 9.0 9.0 8.5-10.1 MG/DL Magnesium Level 2.0 1.6-2.4 MG/DL Total Bilirubin 0.3 0.3 0.1-1.0 MG/DL Aspartate Amino Transf (AST/SGOT) 13 11 5-34 U/L Alanine Aminotransferase (ALT/SGPT) 8 8 0-55 U/L Alkaline Phosphatase 69 66 40-136 U/L Myoglobin 51.2 10.0-92.0 NG/ML Troponin I < 0.028 0.047 H 0.186 H <0.028 NG/ML Total Protein 6.3 L 5.8 L 6.4-8.2 GM/DL Albumin 3.6 3.5 3.2-4.5 GM/DL Triglycerides Level 186 H <150 MG/DL Cholesterol Level 147 < 200 MG/DL LDL Cholesterol Direct 88 1-129 MG/DL VLDL Cholesterol 37 5-40 MG/DL HDL Cholesterol 35 L 40-60 MG/DL Physical Exam Physical Exam Vital Signs Vital Signs - First Documented 06/05/19 19:53 Temp 36.8 Pulse 63 Resp 20 B/P (MAP) 132/68 (89) Pulse Ox 97 O2 Delivery Room Air Capillary Refill : Less Than 3 Seconds Height, Weight, BMI Height: 5'0.00" Weight: 161lbs. 0oz. 73.594165mz; 27.89 BMI Method:Stated General Appearance: No Apparent Distress, WD/WN Eyes: Bilateral Eye Normal Inspection, Bilateral Eye PERRL, Bilateral Eye EOMI HEENT: PERRL/EOMI, Pharynx Normal Neck: Non Tender, Supple Respiratory: Lungs Clear, Normal Breath Sounds Cardiovascular: Regular Rate, Rhythm, No Murmur Gastrointestinal: Non Tender, Soft Back: Normal Inspection, No CVA Tenderness, No Vertebral Tenderness Extremity: Non Tender, No Calf Tenderness, Pedal Edema (right greater than left but states this is typical and less than normal) Neurologic/Psychiatric: Alert, Oriented x3 Skin: Normal Color, Warm/Dry Lymphatic: No Adenopathy A/P-Cardiology Admission Diagnosis Non-ST elevation myocardial infarction Coronary artery disease Hypertension Acute renal failure Assessment/Plan Non-ST elevation myocardial infarction, T-wave inversion in the inferior lead, mild troponin elevation. Discussed treatment option with the patient on Prozac and cons were discussed, patient prefer medical therapy, does not want a cardiac catheterization. Coronary artery disease, multivessel disease, had a cardiac catheterization done by Dr. Olvera in July 2008 showing 6070 percent mid LAD involving the origin of a small diagonal branch, 50-60 left circumflex disease, right coronary artery is a large dominant artery with 50 percent stenosis at the mid and 60 percent stenosis distally. Referred for evaluation for bypass surgery with Dr. Edison Patel and recommendation was for conservative management, patient did not have any follow-up. 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 There is no evidence of intra-cranial hemorrhage, brain herniation, or midline shift on CT of the head on 07-15-18. Management per primary care physician Carotid artery disease - Per u/s of 07-15-18, there is mod bilat carotid arterial plaque, worse (50-70% stenosis) on the right Chronic oral anticoagulation maintained on Eliquis, I instructed her to change aspirin to 81 mg daily. Echocardiogram was done in April 2019 showing normal left ventricular size and function with ejection fraction 50-55 percent, mild LVH, mild mitral regurgitation, pulmonary artery pressure 20 mmHg H/O cervical cancer for which she has undergone chemo (last tx 12 years ago) H/O sleep apnea, non-compliant with CPAP tx Hyperlipidemia, was on Lipitor, has stopped taking it recently, I instructed her to restart Lipitor H/O sinus bradycardia and V-tach during ED visit in November 2017 - transferred to [facility] at that time Chronic diarrhea Reports chronic lymphedema to right leg Depression H/o lupus and gout (details unknown) followed and treated by primary care physician Conservative management is recommended, okay for discharge with the current medication, restart Lipitor and decrease aspirin to 81 mg daily Clinical Quality Measures AMI/AHF: ASA po Prior to arrival: No DVT/VTE Risk/Contraindication: Risk Factor Score Per Nursin RFS Level Per Nursing on Admit: 4+=Very High NOEMÍ CARVALHO MD Jun 06, 2019 08:48
[2019-06-06] MEDS ORDERED: ASPIRIN E.C. 81 MG (ECOTRIN) TAB PO SCH (09:00)
--- NOTE | 2019-06-06 11:03 | Short Stay Summary-Hospitalist ---
History of Present Illness HPI/Chief Complaint This is a 73-year-old white female who is admitted with chest pain. She has known coronary artery disease with CABG being recommended in the past that she did not take advantage of. The patient describes the chest pain is radiation to her jaws and associated with nausea. At the time my interview this morning she is pain-free and has discussed fully with Dr. Estevez the pros and cons of heart catheter and intervention. She has one kidney and would much rather have a conservative medical approach as of the risk to the one kidney. Creatinine was 2.23 yesterday and is now down to 1.98 this morning. Troponins were positive. She also had EKG changes with T-wave inversion in the inferior leads. She continues to smoke and realizes that she should stop. She is okay with going home today. Source: patient Exam Limitations: no limitations Date Seen 06/06/19 Time Seen by a Provider: 10:30 Attending Physician Cata Martínez MD [facility] [place],[facility] Referring Physician Date of Admission Jun 05, 2019 at 22:44 Home Medications & Allergies Home Medications Reviewed patient Home Medication Reconciliation performed by pharmacy medication reconciliations cost recovery technician and/or nursing. Patients Allergies have been reviewed. Allergies Allergies Coded Allergies No Known Drug Allergies (Verified10/21/08) Past Pelknaa-Qukged-Bpsqix Hx Past Med/Social Hx: Reviewed Nursing Past Med/Soc Hx Patient Social History Marrital Status: Employed/Student: retired Alcohol Use: Denies Use Recreational Drug Use: No Smoking Status: Current Everyday Smoker Type Used: Cigarettes 2nd Hand Smoke Exposure: Yes Recent Foreign Travel: No Contact w/other who traveled: No Recent Hopitalizations: No (CVA 4-19) Recent Infectious Disease Expo: No Immunizations Up To Date Pediatric: No Date of Pneumonia Vaccine: Jan 22, 2019 Date of Influenza Vaccine: Jan 22, 2019 Seasonal Allergies Seasonal Allergies: No Past Medical History Surgeries: Abdominal, Adenoidectomy, Cardiac, Gallbladder, Hysterectomy, Oophorectomy, Orthopedic, Tonsillectomy Currently Using CPAP: No Currently Using BIPAP: No Cardiac: Coronary Artery Disease, High Cholesterol, Hypertension Neurological: Neuropathy, Stroke 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: Yes (HX OF VULVAR CA--MODIFIED RADICAL VULVECTOMY 1991) Sexually Transmitted Disease: No HIV/AIDS: No 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 Disorders: Denies Hysterectomy Genitourinary: Renal Failure Gastrointestinal: Chronic Diarrhea, Gall Bladder Disease Musculoskeletal: Arthritis Endocrine: Lupus Loss of Vision: Left Hearing Impairment: Denies Cancer: Cervical, Vaginal Did You Recieve Any Treatments: Yes What Type of Treatment Did You: Chemotherapy, Radiation, Surgical Intervention Psychosocial: Anxiety History of Blood Disorders: No Adverse Reaction to Blood [place]: No Family History Reviewed Nursing Family Hx Arthritis 19 FATHER 19 MOTHER Cardiovascular disease 19 MOTHER Completed stroke 19 MOTHER maternal grandmother Congenital heart disease 19 MOTHER Diabetes mellitus 19 MOTHER maternal grandmother Hypercholesterolemia 19 MOTHER maternal grandmother Hypertension 19 MOTHER maternal grandmother Myocardial infarction maternal grandmother Tuberculosis paternal great grandfather No Pertinent Family Hx Review of Systems Constitutional: see HPI EENTM: no symptoms reported Respiratory: dyspnea on exertion Cardiovascular: chest pain Gastrointestinal: no symptoms reported Genitourinary: no symptoms reported Musculoskeletal: no symptoms reported Skin: no symptoms reported Psychiatric/Neurological: No Symptoms Reported Physical Exam Physical Exam Vital Signs Vital Signs - First Documented 06/05/19 19:53 Temp 36.8 Pulse 63 Resp 20 B/P (MAP) 132/68 (89) Pulse Ox 97 O2 Delivery Room Air Capillary Refill : Less Than 3 Seconds Height, Weight, BMI Height: 5'0.00" Weight: 161lbs. 0oz. 73.928494og; 27.89 BMI Method:Stated General Appearance: No Apparent Distress, WD/WN Eyes: Bilateral Eye Normal Inspection, Bilateral Eye PERRL, Bilateral Eye EOMI HEENT: PERRL/EOMI, Pharynx Normal Neck: Non Tender, Supple Respiratory: Lungs Clear, Normal Breath Sounds Cardiovascular: Regular Rate, Rhythm, No Murmur Gastrointestinal: Non Tender, Soft Back: Normal Inspection, No CVA Tenderness, No Vertebral Tenderness Extremity: Non Tender, No Calf Tenderness, Pedal Edema (right greater than left but states this is typical and less than normal) Neurologic/Psychiatric: Alert, Oriented x3 Skin: Normal Color, Warm/Dry Lymphatic: No Adenopathy Results Results/Procedures Labs Laboratory Tests 06/05/19 20:00 06/06/19 03:03 Patient resulted labs reviewed. 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 Patient to follow-up with Dr. Estevez and with Daniel Meade Clinical Quality Measures AMI/AHF: ASA po Prior to arrival: No DVT/VTE Risk/Contraindication: Risk Factor Score Per Nursin RFS Level Per Nursing on Admit: 4+=Very High Copy Copies To 1: [facility]/CATA NORTON MD Jun 06, 2019 11:03
[2019-06-06] MEDS ORDERED: NITR0.3T7 SL (11:08)
[2019-06-06] MEDS ORDERED: ASPI-983 PO (11:08)
--- NOTE | 2019-06-06 13:22 | NUR ---
Patient discharged at this time. Pt Son is here to drive pt home, escorted out via wheelchair by MOOSE Lynch. IV DC'd, catheter tip intact. Pt belongings with pt.
--- OUTSIDE RECORDS SUMMARY | 2019-06-06 21:37 | XMS REPORT | Clinical Summary ---
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 If you d o not see the information that you expected, contact Release of Information in [facility] [employer] Information Management department at [phone] for further assistan ce in locating additional records.[facility] Allergies No Known Allergies Medications End Date [...] hydroxychloroquine Take 2 Tabs 60 Tab 2 01 (PLAQUENIL) 200 mg PO by mouth 1 [...] Alcohol Use 1 Standard drinks or equivalent 0.8 Yes Sex Assigned at Date Recorded Not [...] Last Done Comments HEPATITIS C SCREENING 1945 DTAP/TDAP VACCINES (1 - 06/21/1958 Tdap) PHYSICAL (COMPREHENSIVE) 06/21/1965 EXAM BREAST CANCER SCREENING 1987 COLORECTAL CANCER 06/21/1997 SCREENING SHINGLES RECOMBINANT 06/21/1997 VACCINE (1 of 2) OSTEOPOROSIS 06/21/2012 SCREENING/MONITORING PNEUMONIA (PCV13/PPSV23) 06/21/2012 VACCINES (1 of 2 - PCV13) INFLUENZA VACCINE 10/22/2018 Results Not on filefrom Last 3 Months
--- OUTSIDE RECORDS SUMMARY | 2019-06-06 21:42 | XMS REPORT ---
Author Author Eugenio LINDA [facility] Address [address] [place] [address] Care Team Providers Care Geospatial Imagery Intelligence Analyst Name Role Phone EUGENIO LINDA Unavailable PROBLEMS Type Condition ICD9-CM Code XRV06-LZ Code Onset Dates Condition S tatus SNOMED Code Problem Other chronic pain G89.29 Active 8 3305633 Problem Other organ or system involvement in systemic julito pus erythematosus M32.19 Active 99044789 Problem 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 E78.2 Active 188062842 Problem Asymptomatic menopausal state Z78.0 Active 69988492 Problem Anxiety F41.9 Active 52313943 Problem Right renal artery stenosis I70.1 Ac tive [id number] Problem Episode of recurrent major d epressive disorder, unspecified depression episode severity F33.9 Active 545056825 Problem Non-pressure chronic ulcer o f other part of unspecified foot limited to breakdown of skin L97.501 Active 843951958 Problem Other chronic pain G89.29 Active 8 2898524 Problem Non-pressure chronic ulcer o f other part of unspecified foot limited to breakdown of skin L97.501 Active 306442134 Problem Urinary frequency R35.0 Active 16 5266847 Problem Acute right-sided low back pain with right-sided sciatica M54.41 Active 633652443 Problem Lumbago with sciatica, right side M54.41 Active 155301792 Problem 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 31230771 Problem Sialoadenitis, unspecified K11.20 Act gulshan 44661883 Problem Cerebrovascular accident (CV A) due to occlusion of other cerebral artery I63.59 Active 496504357 Problem Sciatica M54.30 Active 72171020 Problem 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 Active 323880111 Problem Systolic congestive heart failure, unspecified HF chronici ty I50.20 Active 69409991 Problem Unsteady gait R26.81 Active 040774 008 Problem Seborrheic keratoses L82.1 Active 384937569 Problem Frequent falls R29.6 Active 62808 2002 Problem HILARIO (obstructive sleep apnea) G47.33 Active 77423213 Problem Necrosis I96 Active 202918879 Problem 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 Active 550458803 Problem Gangrene I96 Active 597093595 Problem Hepatitis C B19.20 Active 12277242 Problem Type 2 diabetes mellitus with foot ulcer E11.621 Active 371416716014491 Problem Type 2 diabetes mellitus with foot ulcer E11.621 Active 304910252523982 Problem Arterial insufficiency of lower extremity I73.9 Active 821744752909450 Problem Cardiomyopathy of undetermined type I42.9 Active 53104656 Problem Chronic anticoagulation Z79.01 Active 374107945 Problem Atherosclerosis of renal artery I70.1 Active 007404913083579 Problem Systemic lupus erythematosus , unspecified SLE type, unspecified organ involvement status M32.9 Active 29622976 Problem residential 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 Z79 .01 Active 787026276 Problem Ventricular tachycardia I47.2 Active 66324832 Problem Current moderate episode of major depressive disorder without prior episode F32.1 Active 42937573 Problem Body mass index (BMI) 29.0-29.9, adult Z68.29 Active 150625333 Problem Hypertension I10 Active 6822035 3 ALLERGIES No Information ENCOUNTERS Encounter Location Date Diagnosis [facility] [id number] [place] [address] May, [facility] [address] [address] 03 May, 2019 Other chronic pain G89.29 [facility] [id number] [place] [address] 20 Apr, 2019 Atherosclerosis of renal artery I70.1 ; Cardiomyopathy of undetermined type I42.9 and Ventricular tachycardia I47.2 [facility] [id number] [place] [address] 14 Apr, 2019 [facility] [address] [facility] [id number] [address] [place] [address] 11 Apr, 2019 Non-intractable vomiting wit h nausea, unspecified vomiting type R11.2 [place] [address] [address] Apr, Other chronic pain G89.29 [place] [address] [address] Mar, Other chronic pain G89.29 [place] [address] [address] Feb, Renal insufficiency N28.9 [place] [address] [address] Feb, [place] [address] [address] Feb, Frequent headaches R51 and Hypertension I10 [place] [address] [address] Feb, Other chronic pain G89.29 [place] [address] [address] Jan, Encounter for Medicare annual wellness e xam Z00.00 ; Arterial insufficiency of lower extremity I73.9 ; Ventricular tachycardia I47.2 ; Type 2 diabetes mellitus with foot ulcer E11.621 ; Body mass index (BMI) 29.0-29.9, adult Z68.29 ; Frequent falls R29.6 ; Unsteady gait R26.81 ; Cerebrovascular accident (CVA) due to occlusion of other cerebral artery I63.59 ; Current moderate episode of major depressive disorder without prior episode F32.1 and Encounter for immunization Z23 [place] [address] [address] Jan, [address] [address] Jan, Other chronic pain G89.29 [place] [address] [address] Dec, [address] [address] Dec, Hypokalemia E87.6 [facility] [address] [address] 15 Dec, 2018 Nausea R11.0 [place] [address] [address] 14 Dec, 2018 Other chronic pain G89.29 [place] [address] [address] 10 Dec, 2018 Systolic congestive heart failure, unspe cified HF chronicity I50.20 and Ventricular tachycardia I47.2 [place] [address] [address] 08 Dec, 2018 [place] [address] [address] 17 Nov, 2018 Other chronic pain G89.29 [place] [address] [address] Nov, Nausea with vomiting, unspecified R11.2 [place] [address] [address] Oct, [place] [address] [address] Oct, Other chronic pain G89.29 [place] [address] [address] Oct, [place] [address] [address] Oct, Arterial insufficiency of lower extremit y I73.9 and High risk medication use Z79.899 [facility] [address] [facility] [id number] [place] [address] Oct, Type 2 diabetes mellitus wit h foot ulcer E11.621 and Non-pressure chronic ulcer of other part of unspecified foot limited to breakdown of skin L97.501 [facility] [address] [facility] [id number] [place] [address] Oct, Gangrene I96 [place] [address] [address] Sep, Other chronic pain G89.29 [place] [address] [address] Sep, Status post CVA Z86.73 ; Unsteady gait R 26.81 and Frequent falls R29.6 [place] [address] [address] Sep, Nausea with vomiting, unspecified R11.2 [place] [address] [address] Sep, Other chronic pain G89.29 [place] [address] [address] Aug, [place] [address] [address] Aug, Other chronic pain G89.29 [place] [address] [address] July, residential current use of anticoagulant Z 79.01 and Cerebrovascular accident (CVA) due to occlusion of other cerebral artery I63.[address] [address] July, Renal insufficiency N28.[address] [address] July, Cerebrovascular accident (CVA) due to oc clusion of other cerebral artery I63.59 and Unexplained weight loss R63.4 [place] [address] [address] July, [place] [address] [address] July, [address] [address] July, Unexplained weight loss R63.4 and Long t erm current use of anticoagulant Z79.01 [place] [address] [address] July, Other chronic pain G89.29 [place] [address] [address] Jun, Other chronic pain G89.29 [place] [address] [address] May, Unexplained weight loss R63.4 [place] [address] [address] May, Nausea with vomiting, unspecified R11.2 [place] [address] [address] May, Non-recurrent acute suppurative otitis m edia of right ear without spontaneous rupture of tympanic membrane H66.001 and Chronic anticoagulation Z79.01 [place] [address] [address] May, Other chronic pain G89.29 [facility] [address] 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 [place] [address] [address] 05 Apr, 2018 Other chronic pain G89.29 [place] [address] [address] Mar, Other chronic pain G89.29 [place] [address] [address] Mar, Other chronic pain G89.29 [facility] [address] [address] Mar, [facility] [address] [address] Mar, Other organ or system involvement in sys temic lupus erythematosus M32.19 [facility] [address] [address] Mar, Non-recurrent acute suppurative otitis m edia of right ear without spontaneous rupture of tympanic membrane H66.001 and Chronic anticoagulation Z79.01 [facility] [address] [facility] [id number] [address] [place] [address] Feb, Sialoadenitis, unspecified K 11.20 [place] [address] [address] Feb, Other chronic pain G89.29 [place] [address] [address] Jan, residential current use of anticoagulant t herapy Z79.01 [place] [address] [address] Jan, Other chronic pain G89.29 ; Lumbago with sciatica, right side M54.41 ; Other chronic pain G89.29 ; Tobacco abuse Z72.0 ; Tobacco abuse counseling Z71.6 ; 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 E78.2 and residential 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 Z79.01 [facility] [id number] [place] [address] Jan, [place] [address] [address] Dec, [facility] [address] [address] Dec, [place] [address] [address] Dec, [place] [address] [address] Dec, 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 E78.2 ; Other chron ic pain G89.29 ; Anxiety F41.9 ; Episode [...] involvement in systemic lupus erythematosus M32.19 [facility] [address] [place] [id number] Dec, Right renal artery stenosis I70.1 ; Othe r organ or system involvement in systemic lupus erythematosus M32.19 ; Hepatitis C B19.20 ; Tobacco abuse Z72.0 and Weakness R53.1 [facility] [address] [place] [id number] Dec, [place] [address] [address] Dec, [place] [address] [address] Dec, Other organ or system involvement in sys temic lupus erythematosus M32.19 [facility] [address] [place] [id number] Dec, Right renal artery stenosis I70.1 ; Inju ry of right kidney, sequela S37.001S ; Tobacco abuse Z72.0 ; Systemic lupus erythematosus, unspecified SLE type, unspecified organ involvement status M32.9 ; Hepatitis C B19.20 and Candidiasis of female genitalia B37.3 [place] [address] [address] Dec, Other organ or system involvement in sys temic lupus erythematosus M32.19 [place] [address] [address] Dec, Other organ or system involvement in sys temic lupus erythematosus M32.19 [facility] [id number] [place] [address] Dec, [facility] [id number] [place] [address] Nov, Other organ or system involvement in sys temic lupus erythematosus M32.19 [facility] [id number] [place] [address] Oct, Other organ or system involvement in sys temic lupus erythematosus M32.19 [facility] [address] [address] Sep, Other organ or system involvement in sys temic lupus erythematosus M32.19 [facility] [address] [address] Aug, Anxiety F41.9 [facility] [address] [address] Aug, Other organ or system involvement in sys temic lupus erythematosus M32.19 [facility] [id number] [place] [address] July, Medicare annual wellness visit, initial Z00.00 ; Anxiety F41.9 ; HILARIO (obstructive sleep apnea) G47.33 ; Hepatitis C B19.20 ; Other chronic pain G89.29 ; Asymptomatic menopausal state Z78.0 and Episode of recurrent major depressive disorder, unspecified depression episode severity F33.9 [facility] [id number] [place] [address] July, Anxiety F41.9 [facility] [id number] [place] [address] July, Other organ or system involvement in sys temic lupus erythematosus M32.19 [facility] [id number] [place] [address] July, [facility] [id number] [place] [address] Jun, Other organ or system involvement in sys temic lupus erythematosus M32.19 ; BMI 40.0-44.9, adult Z68.41 ; Other chronic pain G89.29 and Controlled substance agreement signed Z79.899 [place] [address] [address] May, Sciatica M54.30 [place] [address] [address] Apr, Sciatica M54.30 [place] [address] [address] Mar, Sciatica M54.30 [place] [address] [address] Feb, Sciatica M54.30 [place] [address] [address] Jan, Sciatica M54.30 [place] [address] [address] Jan, Sciatica M54.30 [place] [address] [address] Dec, Sciatica M54.30 [place] [address] [address] 18 Dec, 2016 Sciatica M54.30 [place] [address] [address] 29 Nov, 2016 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 E78.2 ; 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 and Family history of early CAD Z82.49 [place] [address] [address] Nov, Sciatica M54.30 [place] [address] [address] Nov, 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 E78.2 ; 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 ; Family history of early CAD Z82.49 ; Other chronic pain G89.29 and Pain in left shoulder M25.512 [facility] [id number] [place] [address] Nov, Acute pain of left shoulder M25.512 [facility] [id number] [place] [address] Oct, Sciatica M54.30 [facility] [address] [address] Oct, [facility] [address] [address] Sep, Sciatica M54.30 [facility] [address] [address] Sep, Acute pain of left shoulder M25.512 [facility] [address] [address] Sep, Acute pain of left shoulder M25.512 [place] [address] [address] Aug, Sciatica M54.30 [place] [address] [address] Aug, Sciatica M54.30 ; Tobacco abuse Z72.0 an d Tobacco abuse counseling Z71.6 [place] [id number] [place] [address] Aug, Acute pain of left shoulder M25.512 [facility] [address] [facility] [id number] [place] [address] Aug, Contusion of right shoulder, initial encounter S40.011A ; Acute pain of left shoulder M25.512 and Shortness of breath R06.02 [facility] [address] [address] Aug, Lumbago with sciatica, right side M54.41 [facility] [id number] [place] [address] July, [facility] [address] [address] July, Lumbago with sciatica, right side M54.41 [facility] [address] [address] Jun, Lumbago with sciatica, right side M54.41 [facility] [address] [address] May, Lumbago with sciatica, right side M54.41 [facility] [id number] [place] [address] May, Herpes zoster without compli cation B02.9 [facility] [address] [address] May, Back pain M54.9 and Acute ri ght-sided low back pain with right-sided sciatica M54.41 [place] [address] [address] Apr, [place] [address] [address] Apr, Lumbago with sciatica, right side M54.41 and Other chronic pain G89.29 [place] [address] [address] Apr, [place] [address] [address] Mar, [place] [address] [address] Mar, [place] [address] [address] Feb, [facility] [id number] [place] [address] Jan, Urinary frequency R35.0 [place] [address] [address] Jan, [facility] [id number] [place] [address] Dec, [facility] [address] [address] Oct, [facility] [address] [address] Sep, [facility] [address] [facility] [facility] [id number] [place] [address] Sep, Foreign body in left foot, i nitial encounter S90.852A [facility] [address] [address] Aug, [facility] [address] [address] July, Sciatica M54.30 [facility] [address] [address] Jun, [facility] [address] [address] May, Osteoarthritis M19.90 [facility] [address] [address] May, [facility] [address] [address] May, Pain in right hip M25.551 [facility] [address] [facility] [id number] [place] [address] May, Tinea corporis B35.4 [facility] [address] [address] Apr, Pain in right hip M25.551 [facility] [address] [address] Mar, Pain in right hip M25.551 [facility] [address] [address] Mar, [facility] [address] [address] Feb, Pain in right hip M25.551 [facility] [id number] [place] [address] Jan, Acute bronchitis, unspecified organism J 20.9 and Cough R05 [facility] [id number] [place] [address] Jan, Pain in right hip M25.551 [facility] [address] [address] Dec, Pain in right hip M25.551 [facility] [address] [address] Nov, Acute bronchitis 466.0 [facility] [address] [address] Nov, [facility] [address] [address] Oct, [facility] [id number] [place] [address] Sep, [facility] [address] [address] Aug, [facility] [address] [address] July, [facility] [id number] [place] [address] 14 Jun, 2014 [facility] [id number] [place] [address] Jun, [facility] [id number] [place] [address] May, [facility] [address] [address] May, [facility] [id number] [place] [address] Apr, [facility] [address] [address] Apr, 2014 [facility] [address] [id number] [place] [address] Apr, 2014 [facility] [address] [id number] [place] [address] Apr, 2014 [facility] [address] [id number] [place] [address] Apr, 2014 [facility] [address] [id number] [place] [address] Apr, 2014 [facility] [address] [id number] [place] [address] Mar, [facility] [address] [id number] [place] [address] Mar, [facility] [address] [id number] [place] [address] Feb, [facility] [address] [id number] [place] [address] Feb, [facility] [address] [id number] [place] [address] Feb, [facility] [address] [id number] [place] [address] Dec, [facility] [address] [id number] [place] [address] Dec, [facility] [address] [id number] [place] [address] Nov, [facility] [address] [id number] [place] [address] Nov, 2013 [facility] [address] [id number] [place] [address] Nov, [facility] [address] [id number] [place] [address] Nov, [facility] [address] [id number] [place] [address] Sep, [facility] [address] [id number] [place] [address] Sep, [facility] [address] [id number] [place] [address] Sep, [facility] [address] [id number] [place] [address] Sep, [facility] [address] [id number] [place] [address] Aug, [facility] [address] [id number] [place] [address] Aug, [facility] [address] [id number] [place] [address] Aug, [facility] [address] [id number] [place] [address] Aug, [facility] [address] [id number] [place] [address] July, [facility] [address] [id number] [place] [address] July, [facility] [address] [id number] [place] [address] Jun, [facility] [address] [id number] [place] [address] Jun, [facility] [address] [id number] [place] [address] Jun, [facility] [address] [id number] [place] [address] Jun, [facility] [address] [id number] [place] [address] Jun, [facility] [address] [id number] [place] [address] Jun, [facility] [address] [id number] [place] [address] Jun, [facility] [address] [id number] [place] [address] Jun, [facility] [address] [facility] [id number] [place] [address] May, [facility] [address] [facility] [id number] [place] [address] May, [facility] [address] [id number] [place] [address] May, [facility] [place] [facility] [address] [id number] [place] [address] May, [facility] [place] [facility] [address] [facility] [id number] [place] [address] May, [facility] [place] [facility] [address] [id number] [place] [address] May, [facility] [place] [facility] [address] [id number] [place] [address] Apr, [facility] [place] [facility] [address] [id number] [place] [address] Apr, [facility] [place] [facility] [address] [id number] [place] [address] Apr, [facility] [place] [facility] [address] [id number] [place] [address] Apr, [facility] [place] [facility] [address] [id number] [place] [address] Mar, [facility] [place] [facility] [address] [id number] [place] [address] Mar, [facility] [place] [facility] [address] [id number] [place] [address] Mar, [facility] [place] [facility] [address] [id number] [place] [address] Mar, [facility] [place] [facility] [address] [id number] [place] [address] Mar, [facility] [place] [facility] [address] [id number] [place] [address] Mar, [facility] [place] [facility] [address] [id number] [place] [address] Feb, [facility] [place] [facility] [address] [id number] [place] [address] Feb, [facility] [place] [facility] [address] [id number] [place] [address] Feb, [facility] [place] [facility] [address] [id number] [place] [address] Feb, [facility] [place] [facility] [address] [id number] [place] [address] Feb, [facility] [place] [facility] [address] [id number] [place] [address] Feb, [facility] [place] [facility] [address] [id number] [place] [address] Feb, [facility] [place] [facility] [address] [id number] [place] [address] Feb, [facility] [place] [facility] [address] [id number] [place] [address] Feb, [facility] [place] [facility] [address] [id number] [place] [address] Feb, [facility] [place] [facility] [address] [id number] [place] [address] Feb, [facility] [place] [facility] [address] [id number] [place] [address] Feb, [facility] [place] [facility] [address] [id number] [place] [address] Jan, [facility] [place] [facility] [address] [id number] [place] [address] Jan, [facility] [place] [facility] [id number] [place] [address] Jan, [facility] [place] [facility] [address] [id number] [place] [address] Jan, [facility] [place] [facility] [address] [id number] [place] [address] Jan, [facility] [place] [facility] [address] [id number] [place] [address] Jan, [facility] [place] [facility] [address] [id number] [place] [address] Jan, [facility] [place] [facility] [address] [id number] [place] [address] Jan, [facility] [place] [facility] [address] [id number] [place] [address] Jan, [facility] [place] [facility] [address] [id number] [place] [address] Jan, [facility] [place] [facility] [address] [id number] [place] [address] Dec, [facility] [place] [facility] [address] [id number] [place] [address] Dec, [facility] [place] [facility] [address] [id number] [place] [address] Nov, [facility] [place] [facility] [address] [id number] [place] [address] 25 Nov, 2012 [facility] [place] [facility] [address] [id number] [place] [address] 09 Nov, 2012 [facility] [place] [facility] [address] [id number] [place] [address] 05 Nov, 2012 [facility] [place] [facility] [address] [id number] [place] [address] Nov, [facility] [place] [facility] [address] [id number] [place] [address] Oct, [facility] [place] [facility] [address] [id number] [place] [address] Oct, [facility] [place] [facility] [address] [id number] [place] [address] Oct, [facility] [place] [facility] [address] [id number] [place] [address] Oct, [facility] [place] [facility] [address] [id number] [place] [address] Oct, [facility] [place] [facility] [address] [id number] [place] [address] Sep, [facility] [place] [facility] [address] [facility] [id number] [place] [address] Sep, [facility] [place] [facility] [address] [id number] [place] [address] Sep, [facility] [place] [facility] [address] [id number] [place] [address] Sep, [facility] [place] [facility] [address] [facility] [id number] [place] [address] Sep, [facility] [place] [facility] [address] [id number] [place] [address] Sep, [facility] [place] [facility] [address] [id number] [place] [address] Aug, [facility] [place] [facility] [address] [id number] [place] [address] Aug, [facility] [place] [facility] [address] [id number] [place] [address] July, [facility] [place] [facility] [address] [id number] [place] [address] July, [facility] [place] [facility] [address] [id number] [place] [address] July, [facility] [place] [facility] [address] [id number] [place] [address] Jun, [facility] [place] [facility] [address] [id number] [place] [address] Jun, [facility] [place] [facility] [address] [id number] [place] [address] 16 Jun, 2012 [facility] [place] [facility] [address] [id number] [place] [address] Jun, [facility] [place] [facility] [address] [id number] [place] [address] May, [facility] [place] [facility] [address] [id number] [place] [address] May, [facility] [place] [facility] [address] [id number] [place] [address] Apr, [facility] [place] [facility] [address] [id number] [place] [address] Apr, [facility] [place] [facility] [address] [id number] [place] [address] Apr, [facility] [place] [facility] [address] [id number] [place] [address] Apr, [facility] [place] [facility] [address] [id number] [place] [address] Apr, [facility] [place] [facility] [address] [id number] [place] [address] Apr, [facility] [place] [facility] [address] [id number] [place] [address] Apr, [facility] [place] [facility] [address] [id number] [place] [address] Apr, [facility] [place] [facility] [address] [id number] [place] [address] Mar, [facility] [place] [facility] [address] [id number] [place] [address] Mar, [facility] [place] [facility] [address] [id number] [place] [address] Mar, [facility] [place] [facility] [address] [id number] [place] [address] Mar, [facility] [place] [facility] [address] [id number] [place] [address] Jan, [facility] [place] [facility] [id number] [place] [address] Jan, [facility] [place] [facility] [address] [id number] [place] [address] Jan, [facility] [place] [facility] [address] [id number] [place] [address] Jan, [facility] [place] [facility] [address] [id number] [place] [address] Jan, [facility] [place] [facility] [address] [id number] [place] [address] Dec, [facility] [place] [facility] [address] [id number] [place] [address] Dec, [facility] [place] [facility] [address] [id number] [place] [address] Dec, [facility] [place] [facility] [address] [facility] [id number] [place] [address] Dec, [facility] [place] [facility] [address] [id number] [place] [address] Nov, [facility] [place] [facility] [address] [id number] [place] [address] Oct, [facility] [place] [facility] [address] [id number] [place] [address] Oct, [facility] [place] [facility] [address] [id number] [place] [address] Oct, [facility] [place] [facility] [address] [id number] [place] [address] Oct, [facility] [place] [facility] [address] [id number] [place] [address] Oct, [facility] [place] [facility] [address] [id number] [place] [address] Sep, [facility] [place] [facility] [address] [id number] [place] [address] Sep, [facility] [place] [facility] [address] [id number] [place] [address] Aug, [facility] [place] [facility] [address] [id number] [place] [address] Aug, [facility] [place] [facility] [address] [id number] [place] [address] Aug, [facility] [place] [facility] [address] [id number] [place] [address] Aug, [facility] [place] [facility] [address] [id number] [place] [address] July, [facility] [place] [facility] [address] [id number] [place] [address] Jun, [facility] [place] [facility] [address] [id number] [place] [address] May, [facility] [place] [facility] [address] [id number] [place] [address] May, [facility] [place] [facility] [address] [id number] [place] [address] May, [facility] [place] [facility] [address] [id number] [place] [address] Mar, [facility] [place] [facility] [address] [id number] [place] [address] Feb, [facility] [place] [facility] [address] [id number] [place] [address] Feb, [facility] [place] [facility] [address] [id number] [place] [address] Jan, [facility] [place] [facility] [address] [id number] [place] [address] Jan, [facility] [place] [facility] [address] [id number] [place] [address] Jan, [facility] [place] [facility] [address] [id number] [place] [address] Jan, [facility] [place] [facility] [address] [id number] [place] [address] 30 Jan, 2010 [facility] [place] [facility] [address] [id number] [place] [address] 20 Dec, 2009 [facility] [place] [facility] [address] [id number] [place] [address] 13 Dec, 2009 [facility] [place] [facility] [address] [id number] [place] [address] 13 Dec, 2009 [facility] [place] [facility] [address] [id number] [place] [address] 18 May, 2009 [facility] [address] [id number] [place] [address] 15 May, 2009 [facility] [address] [id number] [place] [address] 17 Apr, 2009 [facility] [address] [id number] [place] [address] Jan, [facility] [address] [id number] [place] [address] Apr, IMMUNIZATIONS No Known Immunizations SOCIAL HISTORY Never Assessed REASON FOR VISIT PLAN OF CARE VITAL SIGNS Height 63 in 2013-05-05 Weight 217.7 lbs 2013-05-05 Temperature 98.7 degrees Fahrenheit 2013-05-05 Heart Rate 88 bpm 2013-05-05 Respiratory Rate 26 2013-05-05 Blood pressure systolic 124 mmHg 2013-05-05 Blood pressure diastolic 86 mmHg 2013-05-05 MEDICATIONS Unknown Medications RESULTS No Results PROCEDURES Procedure Date Ordered Result Body Site MEASURE BLOOD OXYGEN LEVEL May 05, 2013 INSTRUCTIONS MEDICATIONS ADMINISTERED No Known Medications MEDICAL (GENERAL) HISTORY Type Description Date Medical History unspecified connective tissue disease Medical History cancer(vulvar) Medical History cancer(cervical) Medical History depression Medical History Sciatica Medical History Sciatica Medical History Chronic hepatitis C without mention of h epatic coma Medical History Unspecified disorder of kidney and urete r Medical History Counseling on substance use and abuse Medical History renal infarct Medical History Poor circulation Surgical History cholecystectomy Surgical History hysterectomy Surgical History modified radical vulvectomy for cancer Hospitalization History surgeries Hospitalization History [facility] ER, heart- kidney- Stayed a t [facility] ICU 12/2017 Hospitalization History [facility] ER 03/2018 Hospitalization History [facility]- Stroke 2 weeks 06/2018 Hospitalization History ER 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
--- OUTSIDE RECORDS SUMMARY | 2019-06-06 21:42 | XMS REPORT ---
Author Author Luanne GLORIA Organization [facility] Address [address] [place] [address] Care Team Providers Care Data Review Specialist Name Role Phone CHRISTA GLORIA Unavailable PROBLEMS Type Condition ICD9-CM Code [id number] Code Onset Dates Condition S tatus SNOMED Code Problem Other chronic pain G89.29 Active 8 3549099 Problem Other organ or system involvement in systemic julito pus erythematosus M32.19 Active 21667548 Problem 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 E78.2 Active 407499832 Problem Asymptomatic menopausal state Z78.0 Active 20272345 Problem Anxiety F41.9 Active 04358420 Problem Right renal artery stenosis I70.1 Ac tive 58852348105468963 Problem Episode of recurrent major d epressive disorder, unspecified depression episode severity F33.9 Active 445374117 Problem Non-pressure chronic ulcer o f other part of unspecified foot limited to breakdown of skin L97.501 Active 684326319 Problem Other chronic pain G89.29 Active 8 7420236 Problem Non-pressure chronic ulcer o f other part of unspecified foot limited to breakdown of skin L97.501 Active 785661186 Problem Urinary frequency R35.0 Active 16 1599962 Problem Acute right-sided low back pain with right-sided sciatica M54.41 Active 636938144 Problem Lumbago with sciatica, right side M54.41 Active 388764738 Problem 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 20785170 Problem Sialoadenitis, unspecified K11.20 Act gulshan 07712567 Problem Cerebrovascular accident (CV A) due to occlusion of other cerebral artery I63.59 Active 048480218 Problem Sciatica M54.30 Active 98307083 Problem 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 434881376 Problem Systolic congestive heart failure, unspecified HF chronici ty I50.20 Active 04774524 Problem Unsteady gait R26.81 Active 354989 008 Problem Seborrheic keratoses L82.1 Active 574443275 Problem Frequent falls R29.6 Active 38170 2001 Problem HILARIO (obstructive sleep apnea) G47.33 Active 84408704 Problem Necrosis I96 Active 419132952 Problem 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 Active 708025601 Problem Gangrene I96 Active 751343903 Problem Hepatitis C B19.20 Active 65847241 Problem Type 2 diabetes mellitus with foot ulcer E11.621 Active 605271888126440 Problem Type 2 diabetes mellitus with foot ulcer E11.621 Active 392360654212869 Problem Arterial insufficiency of lower extremity I73.9 Active 383776650924820 Problem Cardiomyopathy of undetermined type I42.9 Active 62396945 Problem Chronic anticoagulation Z79.01 Active 521126026 Problem Atherosclerosis of renal artery I70.1 Active 156427127935961 Problem Systemic lupus erythematosus , unspecified SLE type, unspecified organ involvement status M32.9 Active 84855553 Problem [facility] 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 Z79 .01 Active 924341900 Problem Ventricular tachycardia I47.2 Active 65400674 Problem Current moderate episode of major depressive disorder without prior episode F32.1 Active 36537198 Problem Body mass index (BMI) 29.0-29.9, adult Z68.29 Active 446177509 Problem Hypertension I10 Active 1087397 3 ALLERGIES Substance Reaction Event Type Date Status Cymbalta drowsiness Drug Allergy May, Active ENCOUNTERS Encounter Location Date Diagnosis [facility] [id number] [place] [address] May, [facility] [address] [address] May, Other chronic pain G89.29 [facility] [id number] [place] [address] 20 Apr, 2019 Atherosclerosis of renal artery I70.1 ; Cardiomyopathy of undetermined type I42.9 and Ventricular tachycardia I47.2 [facility] [address] [facility] [place] [address] 14 Apr, 2019 [facility] [address] [facility] [id number] [place] [address] Apr, Non-intractable vomiting wit h nausea, unspecified vomiting type R11.2 [place] [address] [address] Apr, Other chronic pain G89.29 [place] [address] [address] Mar, Other chronic pain G89.29 [place] [address] [address] Feb, Renal insufficiency N28.9 [place] [address] [address] Feb, [place] [address] [address] Feb, Frequent headaches R51 and Hypertension I10 [address] [address] Feb, Other chronic pain G89.29 [place] [address] [address] Jan, Encounter for Medicare annual wellness e [...] episode F32.1 and Encounter for immunization Z23 [place] [address] [address] Jan, [address] [address] Jan, Other chronic pain G89.29 [place] [address] [address] Dec, [address] [address] 15 Dec, 2018 Hypokalemia E87.6 [place] [address] [address] 15 Dec, 2018 Nausea R11.0 [place] [address] [address] 14 Dec, 2018 Other chronic pain G89.29 [place] [address] [address] Dec, Systolic congestive heart failure, unspe cified HF chronicity I50.20 and Ventricular tachycardia I47.2 [place] [address] [address] 08 Dec, 2018 [place] [address] [address] 17 Nov, 2018 Other chronic pain G89.29 [place] [address] [address] 04 Nov, 2018 Nausea with vomiting, unspecified R11.2 [place] [address] [address] Oct, [place] [address] [address] Oct, Other chronic pain G89.29 [place] [address] [address] Oct, [place] [address] [address] Oct, Arterial insufficiency of lower extremit y I73.9 and High risk medication use Z79.899 [facility] [address] [place] [address] Oct, Type 2 diabetes mellitus wit h foot ulcer E11.621 and Non-pressure chronic ulcer of other part of unspecified foot limited to breakdown of skin L97.501 [facility] [id number] [place] [address] Oct, Gangrene I96 [place] [address] [address] Sep, Other chronic pain G89.29 [place] [address] [address] Sep, Status post CVA Z86.73 ; Unsteady gait R 26.81 and Frequent falls R29.6 [place] [address] [address] Sep, Nausea with vomiting, unspecified R11.2 [place] [address] [address] Sep, Other chronic pain G89.29 [place] [address] [address] Aug, [place] [address] [address] Aug, Other chronic pain G89.29 [place] [address] [address] July, [facility] current use of anticoagulant Z 79.01 and Cerebrovascular accident (CVA) due to occlusion of other cerebral artery I63.59 [place] [address] [address] July, Renal insufficiency N28.9 [place] [address] [address] July, Cerebrovascular accident (CVA) due to oc clusion of other cerebral artery I63.59 and Unexplained weight loss R63.4 [place] [address] [address] July, [place] [address] [address] July, [place] [address] [address] July, Unexplained weight loss R63.4 and Long t erm current use of anticoagulant Z79.01 [place] [address] [address] July, Other chronic pain G89.29 [place] [address] [id number] Jun, Other chronic pain G89.29 [place] [address] [address] May, Unexplained weight loss R63.4 [place] [address] [address] May, Nausea with vomiting, unspecified R11.[address] [address] May, Non-recurrent acute suppurative otitis m edia of right ear without spontaneous rupture of tympanic membrane H66.001 and Chronic anticoagulation Z79.01 [place] [address] [address] May, Other chronic pain G89.29 [facility] [address] [facility] [id number] [address] [place] [address] Apr, Skin tear of right forearm w ithout complication, initial encounter S51.811A ; Skin tear of left forearm without complication, initial encounter S51.812A and Encounter for immunization Z23 [address] [address] Apr, [address] [address] Apr, Diarrhea, unspecified R19.7 ; Nausea wit h vomiting, unspecified R11.2 and 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 [place] [address] [address] 05 Apr, 2018 Other chronic pain G89.29 [place] [address] [address] Mar, Other chronic pain G89.29 [facility] [id number] [place] [address] Mar, Other chronic pain G89.29 [facility] [address] [address] Mar, [facility] [address] [address] Mar, Other organ or system involvement in sys temic lupus erythematosus M32.19 [facility] [address] [address] Mar, Non-recurrent acute suppurative otitis m edia of right ear without spontaneous rupture of tympanic membrane H66.001 and Chronic anticoagulation Z79.01 [facility] IN [facility] [address] [facility] [id number] [address] [place] [address] Feb, Sialoadenitis, unspecified K 11.20 [place] [address] [address] Feb, Other chronic pain G89.29 [place] [address] [address] Jan, 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 Z79.01 [place] [address] [address] Jan, Other chronic pain G89.29 ; Lumbago with sciatica, right side M54.41 ; Other chronic pain G89.29 ; Tobacco abuse Z72.0 ; Tobacco abuse counseling Z71.6 ; 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 E78.2 and 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 [facility] [address] [address] Jan, [place] [address] [address] Dec, [place] [address] [address] Dec, [facility] [address] [address] Dec, [facility] [address] [address] Dec, 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 E78.2 ; Other chron [...] involvement in systemic lupus erythematosus M32.19 [facility] [address] [place] [id number] Dec, Right renal artery stenosis I70.1 ; Othe r organ or system involvement in systemic lupus erythematosus M32.19 ; Hepatitis C B19.20 ; Tobacco abuse Z72.0 and Weakness R53.1 [facility] [address] [place] [id number] Dec, [place] [address] [address] Dec, [place] [address] [address] Dec, Other organ or system involvement in sys temic lupus erythematosus M32.19 [facility] [address] [place] [id number] Dec, Right renal artery stenosis I70.1 ; Inju ry of right kidney, sequela S37.001S ; Tobacco abuse Z72.0 ; Systemic lupus erythematosus, unspecified SLE type, unspecified organ involvement status M32.9 ; Hepatitis C B19.20 and Candidiasis of female genitalia B37.3 [place] [address] [address] 05 Dec, 2017 Other organ or system involvement in sys temic lupus erythematosus M32.19 [place] [address] [address] Dec, Other organ or system involvement in sys temic lupus erythematosus M32.19 [facility] [id number] [place] [address] Dec, [facility] [address] [address] Nov, Other organ or system involvement in sys temic lupus erythematosus M32.19 [facility] [address] [address] Oct, Other organ or system involvement in sys temic lupus erythematosus M32.19 [facility] [address] [address] Sep, Other organ or system involvement in sys temic lupus erythematosus M32.19 [facility] [address] [address] Aug, Anxiety F41.9 [facility] [address] [address] Aug, Other organ or system involvement in sys temic lupus erythematosus M32.19 [facility] [id number] [place] [address] July, Medicare annual wellness visit, initial Z00.00 ; Anxiety F41.9 ; HILARIO (obstructive sleep apnea) G47.33 ; Hepatitis C B19.20 ; Other chronic pain G89.29 ; Asymptomatic menopausal state Z78.0 and Episode of recurrent major depressive disorder, unspecified depression episode severity F33.9 [facility] [id number] [place] [address] July, Anxiety F41.9 [facility] [address] [address] July, Other organ or system involvement in sys temic lupus erythematosus M32.19 [facility] [id number] [place] [address] July, [facility] [id number] [place] [address] Jun, Other organ or system involvement in sys temic lupus erythematosus M32.19 ; BMI 40.0-44.9, adult Z68.41 ; Other chronic pain G89.29 and Controlled substance agreement signed Z79.899 [place] [address] [address] May, Sciatica M54.30 [place] [address] [address] Apr, Sciatica M54.30 [place] [address] [address] Mar, Sciatica M54.30 [place] [address] [address] Feb, Sciatica M54.30 [address] [address] [address] Jan, Sciatica M54.30 [address] [address] [address] Jan, Sciatica M54.30 [address] [address] [address] Dec, Sciatica M54.30 [address] [address] [address] Dec, Sciatica M54.30 [place] [address] [address] 29 Nov, 2016 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 E78.2 ; 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 and Family history of early CAD Z82.49 [place] [address] [address] Nov, Sciatica M54.30 [place] [address] [address] Nov, 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 E78.2 ; 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 ; Family history of early CAD Z82.49 ; Other chronic pain G89.29 and Pain in left shoulder M25.512 [place] [address] [address] Nov, Acute pain of left shoulder M25.512 [facility] [address] [address] Oct, Sciatica M54.30 [place] [address] [address] Oct, [place] [address] [address] Sep, Sciatica M54.30 [place] [address] [address] Sep, Acute pain of left shoulder M25.512 [place] [address] [address] Sep, Acute pain of left shoulder M25.512 [place] [address] [address] Aug, Sciatica M54.30 [place] [address] [address] Aug, Sciatica M54.30 ; Tobacco abuse Z72.0 an d Tobacco abuse counseling Z71.6 [place] [address] [address] Aug, Acute pain of left shoulder M25.512 [facility] [address] [facility] [id number] [address] [place] [address] Aug, Contusion of right shoulder, initial encounter S40.011A ; Acute pain of left shoulder M25.512 and Shortness of breath R06.02 [facility] [address] [address] Aug, Lumbago with sciatica, right side M54.41 [facility] [address] [address] July, [facility] [address] [address] July, Lumbago with sciatica, right side M54.41 [facility] [address] [address] Jun, Lumbago with sciatica, right side M54.41 [facility] [address] [address] May, Lumbago with sciatica, right side M54.41 [facility] [place] [facility] [id number] [place] [address] May, Herpes zoster without compli cation B02.9 [facility] [place] [address] [address] May, Back pain M54.9 and Acute ri ght-sided low back pain with right-sided sciatica M54.41 [place] [address] [address] Apr, [place] [address] [address] Apr, Lumbago with sciatica, right side M54.41 and Other chronic pain G89.29 [place] [address] [address] Apr, [place] [address] [address] Mar, [place] [address] [address] Mar, [place] [address] [address] Feb, [facility] [id number] [place] [address] Jan, Urinary frequency R35.0 [place] [address] [address] Jan, [facility] [id number] [place] [address] Dec, [facility] [address] [address] Oct, [facility] [address] [address] Sep, [facility] [id number] [place] [address] Sep, Foreign body in left foot, i nitial encounter S90.852A [facility] [address] [address] Aug, [facility] [address] [address] July, Sciatica M54.30 [facility] [address] [address] Jun, [facility] [address] [address] May, Osteoarthritis M19.90 [facility] [address] [address] May, [facility] [address] [address] May, Pain in right hip M25.551 [facility] [id number] [place] [address] May, Tinea corporis B35.4 [facility] [address] [address] Apr, Pain in right hip M25.551 [facility] [address] [address] Mar, Pain in right hip M25.551 [facility] [address] [address] Mar, [place] [id number] [place] [address] Feb, Pain in right hip M25.551 [facility] [id number] [place] [address] Jan, Acute bronchitis, unspecified organism J 20.9 and Cough R05 [facility] [id number] [place] [address] Jan, Pain in right hip M25.551 [facility] [id number] [place] [address] Dec, Pain in right hip M25.551 [facility] [address] [place] [address] Nov, Acute bronchitis 466.0 [facility] [id number] [place] [address] Nov, [facility] [id number] [place] [address] Oct, [facility] [id number] [place] [address] Sep, [facility] [id number] [place] [address] Aug, [facility] [id number] [place] [address] July, [facility] [id number] [place] [address] 14 Jun, 2014 [facility] [id number] [place] [address] Jun, [facility] [id number] [place] [address] May, [facility] [id number] [place] [address] May, [facility] [id number] [place] [address] Apr, [facility] [address] [id number] [place] [address] Apr, 2014 [facility] [address] [id number] [place] [address] Apr, 2014 [facility] [address] [id number] [place] [address] Apr, 2014 [facility] [id number] [place] [address] Apr, 2014 [facility] [address] [id number] [place] [address] Apr, [facility] [id number] [place] [address] Mar, [facility] [id number] [place] [address] Mar, [facility] [id number] [place] [address] Feb, [facility] [id number] [place] [address] Feb, [facility] [id number] [place] [address] Feb, [facility] [id number] [place] [address] Dec, [facility] [id number] [place] [address] Dec, [facility] [id number] [place] [address] Nov, [facility] [address] [id number] [place] [address] Nov, 2013 [facility] [id number] [place] [address] Nov, [facility] [address] [id number] [place] [address] Nov, 2013 [facility] [id number] [place] [address] Sep, [facility] [address] [id number] [facility] [place] [address] Sep, [facility] [address] [facility] [id number] [facility] [address] Sep, [facility] [address] [id number] [place] [address] Sep, [facility] [address] [id number] [place] [address] Aug, [facility] [address] [facility] [id number] [facility] [place] [address] Aug, [facility] [address] [id number] [place] [address] Aug, [facility] [address] [id number] [place] [address] Aug, [facility] [address] [id number] [place] [address] July, [facility] [address] [id number] [place] [address] July, [facility] [address] [id number] [place] [address] Jun, [facility] [address] [id number] [place] [address] Jun, [facility] [address] [id number] [place] [address] Jun, [facility] [address] [facility] [id number] [place] [address] Jun, [facility] [facility] [address] [id number] [place] [address] Jun, [facility] [place] [facility] [address] [id number] [place] [address] Jun, [facility] [place] [facility] [address] [id number] [place] [address] Jun, [facility] [place] [facility] [address] [id number] [place] [address] Jun, [facility] [place] [facility] [address] [facility] [id number] [place] [address] May, [facility] [place] [facility] [address] [facility] [id number] [place] [address] May, [facility] [place] [facility] [address] [id number] [place] [address] May, [facility] [place] [facility] [address] [id number] [place] [address] May, [facility] [place] [facility] [address] [id number] [place] [address] May, [facility] [place] [facility] [address] [id number] [place] [address] May, [facility] [place] [facility] [address] [id number] [place] [address] Apr, [facility] [place] [facility] [address] [id number] [place] [address] Apr, [facility] [place] [facility] [address] [id number] [place] [address] Apr, [facility] [place] [facility] [address] [id number] [place] [address] Apr, [facility] [place] [facility] [address] [id number] [place] [address] Mar, [facility] [place] [facility] [address] [id number] [place] [address] Mar, [facility] [place] [facility] [address] [id number] [place] [address] Mar, [facility] [address] [id number] [place] [address] Mar, [facility] [address] [id number] [place] [address] Mar, [facility] [address] [id number] [place] [address] Mar, [facility] [address] [id number] [place] [address] Feb, 2012 [facility] [address] [id number] [place] [address] Feb, [facility] [address] [id number] [place] [address] Feb, 2012 [facility] [address] [id number] [place] [address] Feb, [facility] [address] [id number] [place] [address] Feb, [facility] [address] [id number] [place] [address] Feb, [facility] [address] [id number] [place] [address] Feb, [facility] [address] [id number] [place] [address] Feb, [facility] [address] [id number] [place] [address] Feb, [facility] [address] [id number] [place] [address] Feb, [facility] [address] [id number] [place] [address] Feb, [facility] [address] [id number] [place] [address] Feb, [facility] [address] [id number] [place] [address] Jan, [facility] [address] [id number] [place] [address] Jan, [facility] [address] [id number] [place] [address] Jan, [facility] [address] [id number] [place] [address] Jan, [facility] [address] [id number] [place] [address] Jan, [facility] [address] [id number] [place] [address] Jan, [facility] [address] [id number] [place] [address] Jan, [facility] [address] [id number] [place] [address] Jan, [facility] [address] [id number] [place] [address] Jan, [facility] [address] [id number] [place] [address] Jan, [facility] [address] [id number] [place] [address] Dec, [facility] [address] [id number] [place] [address] Dec, [facility] [address] [id number] [place] [address] Nov, [facility] [address] [id number] [place] [address] 25 Nov, 2012 [facility] [address] [id number] [place] [address] Nov, [facility] [address] [id number] [place] [address] 05 Nov, 2012 [facility] [address] [id number] [place] [address] Nov, [facility] [address] [id number] [place] [address] Oct, [facility] [address] [id number] [place] [address] Oct, [facility] [address] [id number] [place] [address] Oct, [facility] [address] [id number] [place] [address] Oct, [facility] [address] [id number] [facility] [address] Oct, [facility] [address] [id number] [facility] [address] Sep, [facility] [address] [facility] [id number] [facility] [address] Sep, [facility] [address] [id number] [place] [address] Sep, [facility] [address] [id number] [facility] [address] Sep, [facility] [address] [facility] [id number] [facility] [address] Sep, [facility] [address] [id number] [place] [address] Sep, [facility] [address] [id number] [place] [address] Aug, [facility] [address] [id number] [place] [address] Aug, [facility] [address] [id number] [place] [address] July, [facility] [address] [id number] [place] [address] July, [facility] [address] [id number] [place] [address] July, [facility] [address] [id number] [place] [address] Jun, [facility] [address] [facility] [id number] [place] [address] Jun, [facility] [address] [id number] [place] [address] 16 Jun, 2012 [facility] [address] [id number] [place] [address] Jun, [facility] [address] [id number] [place] [address] May, [facility] [address] [facility] [id number] [place] [address] May, [facility] [address] [id number] [place] [address] Apr, [facility] [address] [id number] [place] [address] Apr, [facility] [address] [id number] [place] [address] Apr, [facility] [address] [id number] [place] [address] Apr, [facility] [address] [id number] [place] [address] Apr, [facility] [address] [id number] [place] [address] Apr, [facility] [address] [facility] [id number] [place] [id number] Apr, [facility] [address] [id number] [place] [address] Apr, [facility] [address] [id number] [place] [address] Mar, [facility] [address] [id number] [place] [address] Mar, [facility] [address] [id number] [place] [address] Mar, [facility] [address] [id number] [place] [address] Mar, [facility] [address] [id number] [place] [address] Jan, [facility] [address] [id number] [place] [address] Jan, [facility] [address] [id number] [place] [address] Jan, [facility] [address] [id number] [place] [address] Jan, [facility] [address] [id number] [place] [address] Jan, [facility] [address] [id number] [place] [address] Dec, [facility] [address] [id number] [place] [address] Dec, [facility] [address] [id number] [place] [address] Dec, [facility] [address] [id number] [place] [address] Dec, [facility] [address] [id number] [place] [address] Nov, [facility] [address] [id number] [place] [address] Oct, [facility] [address] [id number] [place] [address] Oct, [facility] [address] [id number] [place] [address] Oct, [facility] [address] [id number] [place] [address] Oct, [facility] [address] [id number] [place] [address] Oct, [facility] [address] [id number] [place] [address] Sep, [facility] [address] [id number] [place] [address] Sep, [facility] [address] [id number] [place] [address] Aug, [facility] [address] [id number] [place] [address] Aug, [facility] [address] [id number] [place] [address] Aug, [facility] [address] [id number] [place] [address] Aug, [facility] [address] [id number] [place] [address] July, [facility] [address] [id number] [place] [address] Jun, [facility] [id number] [place] [address] May, [facility] [address] [id number] [place] [address] May, [facility] [address] [id number] [place] [address] May, [facility] [address] [id number] [place] [address] Mar, [facility] [id number] [place] [address] Feb, [facility] [address] [id number] [place] [address] Feb, [facility] [address] [id number] [place] [address] Jan, [facility] [id number] [place] [address] Jan, [facility] [id number] [place] [address] Jan, [facility] [address] [id number] [place] [address] Jan, [facility] [address] [id number] [place] [address] 30 Jan, 2010 [facility] [id number] [place] [address] 20 Dec, 2009 [facility] [address] [id number] [place] [address] 13 Dec, 2009 [facility] [address] [id number] [place] [address] Dec, [facility] [address] [id number] [place] [address] May, [facility] [address] [id number] [place] [address] May, [facility] [address] [id number] [place] [address] Apr, [facility] [id number] [place] [address] Jan, [place] [address] [id number] [place] [address] Apr, IMMUNIZATIONS No Known Immunizations SOCIAL HISTORY Never Assessed REASON FOR VISIT Pain management (chronic), PT reports she fell this past Friday at work, injuri ng her knee with bruise. -Kain JONES, PT reports she has been loosing weight an d has concern due to her hx of cancer. -Kain JONES, Handicap sticker needed -Johanny mustafa MA PLAN OF CARE VITAL SIGNS Height 61 in 2018-06-18 Weight 162.7 lbs 2018-06-18 Temperature 98.1 degrees Fahrenheit 2018-06-18 Heart Rate 120 bpm 2018-06-18 Respiratory Rate 22 2018-06-18 Oximetry 98 % 2018-06-18 BMI 30.74 kg/m2 2018-06-18 Blood pressure systolic 130 mmHg 2018-06-18 Blood pressure diastolic 70 mmHg 2018-06-18 MEDICATIONS Medication Instructions Dosage Frequency Start Date End Date Duration S tatus Lomotil 2.5-0.025 MG Orally Four times a day 1 tablet as needed 6h 20 Apr, 2018 Active Irene 5-325 MG Orally 3 times a day 1 tablet 8h 12 May, 2018 28 days Active Losartan Potassium 50 MG Orally Once a day 1 tablet 24h 30 day(s) Active Imodium A-D 2 MG Orally after loos stools, not to exceed 4 tabs in one day 1 tablet as needed Active Amlodipine Besylate 10 MG Orally Once a day 1 tablet 24h 30 day(s) Active Lipitor 20 mg Orally Once a day 1 tablet 24h Jan, 30 day(s) Active Gabapentin 100 mg Orally 3 times a day 1 capsule 8h May, Active Hydrochlorothiazide 25 MG Orally Once a day 1 tablet in the morning 24 h 30 day(s) Active Warfarin Sodium 5 MG Orally Once a day 1 tablet 24h 30 day(s) Active Tylenol 325 MG Orally every 4 hrs 2 tablets as needed 4h Active Plaquenil 200 MG Orally 2 times a day 1 tablet with food or milk 12h 30 days Active PredniSONE 10 mg Orally Once a [...] for cancer Hospitalization History surgeries Hospitalization History [facility] ER, heart- kidney- Stayed a [facility] ICU 12/2017 Hospitalization History [facility] ER 03/2018 Hospitalization History [facility]- Stroke 2 weeks 06/2018 Hospitalization History ER 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
--- OUTSIDE RECORDS SUMMARY | 2019-06-06 21:43 | XMS REPORT ---
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 Name Role Phone EUGENIO LINDA Unavailable PROBLEMS Type Condition ICD9-CM Code DUA21-FX Code Onset Dates Condition S tatus SNOMED Code Problem Other chronic pain G89.29 Active 8 8490083 Problem Other organ or system involvement in systemic julito pus erythematosus M32.19 Active 66752118 Problem 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 E78.2 Active 676415451 Problem Asymptomatic menopausal state Z78.0 Active 39794364 Problem Anxiety F41.9 Active 38934904 Problem Right renal artery stenosis I70.1 Ac tive [id number] Problem Episode of recurrent major d epressive disorder, unspecified depression episode severity F33.9 Active 121601907 Problem Non-pressure chronic ulcer o f other part of unspecified foot limited to breakdown of skin L97.501 Active 785199582 Problem Other chronic pain G89.29 Active 8 4219454 Problem Non-pressure chronic ulcer o f other part of unspecified foot limited to breakdown of skin L97.501 Active 814359344 Problem Urinary frequency R35.0 Active 16 1716531 Problem Acute right-sided low back pain with right-sided sciatica M54.41 Active 438173154 Problem Lumbago with sciatica, right side M54.41 Active 938067751 Problem 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 83905982 Problem Sialoadenitis, unspecified K11.20 Act gulshan 29673956 Problem Cerebrovascular accident (CV A) due to occlusion of other cerebral artery I63.59 Active 211822802 Problem Sciatica M54.30 Active 49795503 Problem intermediate card tender current use of anticoagulant Z79.01 Active 560748896 Problem Systolic congestive heart failure, unspecified HF chronici ty I50.20 Active 16131245 Problem Unsteady gait R26.81 Active 356920 008 Problem Seborrheic keratoses L82.1 Active 552093562 Problem Frequent falls R29.6 Active 33271 2002 Problem HILARIO (obstructive sleep apnea) G47.33 Active 17965318 Problem Necrosis I96 Active 233982693 Problem 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 Active 198559859 Problem Gangrene I96 Active 329943011 Problem Hepatitis C B19.20 Active 14548597 Problem Type 2 diabetes mellitus with foot ulcer E11.621 Active 996415484544820 Problem Type 2 diabetes mellitus with foot ulcer E11.621 Active 438816043332443 Problem Arterial insufficiency of lower extremity I73.9 Active 374963459519492 Problem Cardiomyopathy of undetermined type I42.9 Active 59675832 Problem Chronic anticoagulation Z79.01 Active 116747166 Problem Atherosclerosis of renal artery I70.1 Active 396519389421203 Problem Systemic lupus erythematosus , unspecified SLE type, unspecified organ involvement status M32.9 Active 87144603 Problem halfway 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 Z79 .01 Active 837807345 Problem Ventricular tachycardia I47.2 Active 87798770 Problem Current moderate episode of major depressive disorder without prior episode F32.1 Active 46937484 Problem Body mass index (BMI) 29.0-29.9, adult Z68.29 Active 416334446 Problem Hypertension I10 Active 1064173 3 ALLERGIES No Information ENCOUNTERS Encounter Location Date Diagnosis [place] [id number] [place] [address] May, [facility] [address] [address] 20 Apr, 2019 Atherosclerosis of renal artery I70.1 ; Cardiomyopathy of undetermined type I42.9 and Ventricular tachycardia I47.2 [facility] [id number] [place] [address] 14 Apr, 2019 [facility] [address] [facility] [id number] [place] [address] 11 Apr, 2019 Non-intractable vomiting wit h nausea, unspecified vomiting type R11.2 [facility] [id number] [place] [address] Apr, Other chronic pain G89.29 [place] [address] [address] Mar, Other chronic pain G89.29 [place] [address] [address] Feb, Renal insufficiency N28.9 [place] [address] [address] Feb, [place] [address] [address] Feb, Frequent headaches R51 and Hypertension I10 [place] [address] [address] Feb, Other chronic pain G89.29 [place] [address] [address] Jan, Encounter for Medicare annual wellness e [...] episode F32.1 and Encounter for immunization Z23 [place] [address] [address] Jan, [place] [address] [address] Jan, Other chronic pain G89.29 [place] [address] [address] Dec, [place] [address] [address] Dec, Hypokalemia E87.6 [place] [address] [address] Dec, Nausea R11.0 [place] [address] [address] 14 Dec, 2018 Other chronic pain G89.29 [place] [address] [address] Dec, Systolic congestive heart failure, unspe cified HF chronicity I50.20 and Ventricular tachycardia I47.2 [place] [address] [address] 08 Dec, 2018 [place] [address] [address] Nov, Other chronic pain G89.29 [place] [address] [address] Nov, Nausea with vomiting, unspecified R11.2 [place] [address] [address] Oct, [place] [address] [address] Oct, Other chronic pain G89.29 [place] [address] [address] Oct, [place] [address] [address] Oct, Arterial insufficiency of lower extremit y I73.9 and High risk medication use Z79.899 [facility] [address] [place] [address] Oct, Type 2 diabetes mellitus wit h foot ulcer E11.621 and Non-pressure chronic ulcer of other part of unspecified foot limited to breakdown of skin L97.501 [facility] [id number] [place] [address] Oct, Gangrene I96 [place] [address] [address] Sep, Other chronic pain G89.29 [place] [address] [address] Sep, Status post CVA Z86.73 ; Unsteady gait R 26.81 and Frequent falls R29.6 [place] [address] [address] Sep, Nausea with vomiting, unspecified R11.2 [place] [address] [address] Sep, Other chronic pain G89.29 [place] [address] [address] Aug, [place] [address] [address] Aug, Other chronic pain G89.29 [place] [address] [address] July, halfway current use of anticoagulant Z 79.01 and Cerebrovascular accident (CVA) due to occlusion of other cerebral artery I63.59 [place] [address] [address] July, Renal insufficiency N28.9 [place] [address] [address] July, Cerebrovascular accident (CVA) due to oc clusion of other cerebral artery I63.59 and Unexplained weight loss R63.4 [place] [address] [address] July, [place] [address] [address] July, [place] [address] [address] July, Unexplained weight loss R63.4 and Long t erm current use of anticoagulant Z79.01 [place] [address] [address] July, Other chronic pain G89.29 [place] [address] [address] Jun, Other chronic pain G89.29 [place] [address] [address] May, Unexplained weight loss R63.4 [place] [address] [address] May, Nausea with vomiting, unspecified R11.2 [place] [address] [address] May, Non-recurrent acute suppurative otitis m edia of right ear without spontaneous rupture of tympanic membrane H66.001 and Chronic anticoagulation Z79.01 [place] [address] [address] May, Other chronic pain G89.29 [facility] [address] 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 [place] [address] [address] Apr, Other chronic pain G89.29 [place] [address] [address] Mar, Other chronic pain G89.29 [place] [address] [address] Mar, Other chronic pain G89.29 [place] [address] [address] 08 Mar, 2018 [place] [address] [address] Mar, Other organ or system involvement in sys temic lupus erythematosus M32.19 [place] [address] [address] Mar, Non-recurrent acute suppurative otitis m edia of right ear without spontaneous rupture of tympanic membrane H66.001 and Chronic anticoagulation Z79.01 [facility] [address] [facility] [id number] [address] [place] [address] Feb, Sialoadenitis, unspecified K 11.20 [place] [address] [address] Feb, Other chronic pain G89.29 [place] [address] [address] Jan, intermediate card tender current use of anticoagulant t herapy Z79.01 [place] [address] [address] Jan, Other chronic pain G89.29 ; Lumbago with sciatica, right side M54.41 ; Other chronic pain G89.29 ; Tobacco abuse Z72.0 ; Tobacco abuse counseling Z71.6 ; 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 E78.2 and intermediate card tender 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 Z79.01 [place] [address] [address] Jan, [place] [address] [address] Dec, [place] [address] [address] Dec, [place] [address] [address] Dec, [place] [address] [address] Dec, 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 E78.2 ; Other chron [...] involvement in systemic lupus erythematosus M32.19 [address] [facility] [address] [place] [id number] Dec, Right renal artery stenosis I70.1 ; Othe r organ or system involvement in systemic lupus erythematosus M32.19 ; Hepatitis C B19.20 ; Tobacco abuse Z72.0 and Weakness R53.1 [facility] [address] [place] [id number] Dec, [place] [address] [address] Dec, [place] [address] [address] Dec, Other organ or system involvement in sys temic lupus erythematosus M32.19 [facility] [address] [place] [id number] Dec, Right renal artery stenosis I70.1 ; Inju ry of right kidney, sequela S37.001S ; Tobacco abuse Z72.0 ; Systemic lupus erythematosus, unspecified SLE type, unspecified organ involvement status M32.9 ; Hepatitis C B19.20 and Candidiasis of female genitalia B37.3 [place] [address] [address] Dec, Other organ or system involvement in sys temic lupus erythematosus M32.19 [place] [address] [address] Dec, Other organ or system involvement in sys temic lupus erythematosus M32.19 [facility] [address] [address] Dec, [place] [address] [facility] [place] [address] Nov, Other organ or system involvement in sys temic lupus erythematosus M32.19 [facility] [id number] [place] [address] Oct, Other organ or system involvement in sys temic lupus erythematosus M32.19 [place] [id number] [place] [address] Sep, Other organ or system involvement in sys temic lupus erythematosus M32.19 [place] [id number] [place] [address] Aug, Anxiety F41.9 [place] [address] [address] Aug, Other organ or system involvement in sys temic lupus erythematosus M32.19 [place] [id number] [place] [address] July, Medicare annual wellness visit, initial Z00.00 ; Anxiety F41.9 ; HILARIO (obstructive sleep apnea) G47.33 ; Hepatitis C B19.20 ; Other chronic pain G89.29 ; Asymptomatic menopausal state Z78.0 and Episode of recurrent major depressive disorder, unspecified depression episode severity F33.9 [place] [id number] [place] [address] July, Anxiety F41.9 [place] [id number] [place] [address] July, Other organ or system involvement in sys temic lupus erythematosus M32.19 [facility] [id number] [place] [address] July, [place] [address] [address] Jun, Other organ or system involvement in sys temic lupus erythematosus M32.19 ; BMI 40.0-44.9, adult Z68.41 ; Other chronic pain G89.29 and Controlled substance agreement signed Z79.899 [place] [address] [address] May, Sciatica M54.30 [place] [address] [address] Apr, Sciatica M54.30 [place] [address] [address] Mar, Sciatica M54.30 [place] [address] [address] Feb, Sciatica M54.30 [place] [address] [address] 15 Jan, 2017 Sciatica M54.30 [place] [address] [address] 14 Jan, 2017 Sciatica M54.30 [place] [address] [address] Dec, Sciatica M54.30 [place] [address] [address] 18 Dec, 2016 Sciatica M54.30 [place] [address] [address] 29 Nov, 2016 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 E78.2 ; 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 and Family history of early CAD Z82.49 [place] [address] [address] Nov, Sciatica M54.30 [place] [address] [address] 18 Nov, 2016 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 E78.2 ; 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 ; Family history of early CAD Z82.49 ; Other chronic pain G89.29 and Pain in left shoulder M25.512 [place] [address] [address] Nov, Acute pain of left shoulder M25.512 [facility] [address] [address] Oct, Sciatica M54.30 [facility] [address] [address] Oct, [facility] [address] [address] Sep, Sciatica M54.30 [facility] [address] [address] Sep, Acute pain of left shoulder M25.512 [place] [address] [address] Sep, Acute pain of left shoulder M25.512 [place] [address] [address] Aug, Sciatica M54.30 [place] [address] [address] Aug, Sciatica M54.30 ; Tobacco abuse Z72.0 an d Tobacco abuse counseling Z71.6 [place] [address] [address] Aug, Acute pain of left shoulder M25.512 [facility] [address] [facility] [id number] [address] [place] [address] Aug, Contusion of right shoulder, initial encounter S40.011A ; Acute pain of left shoulder M25.512 and Shortness of breath R06.02 [facility] [address] [address] Aug, Lumbago with sciatica, right side M54.41 [place] [address] [address] July, [place] [address] [address] July, Lumbago with sciatica, right side M54.41 [place] [address] [address] Jun, Lumbago with sciatica, right side M54.41 [facility] [address] [address] May, Lumbago with sciatica, right side M54.41 [facility] [id number] [place] [address] May, Herpes zoster without compli cation B02.9 [facility] [address] [address] May, Back pain M54.9 and Acute ri ght-sided low back pain with right-sided sciatica M54.41 [facility] [address] [address] Apr, [facility] [address] [address] Apr, Lumbago with sciatica, right side M54.41 and Other chronic pain G89.29 [facility] [address] [address] Apr, [facility] [address] [address] Mar, [facility] [address] [address] Mar, [facility] [address] [address] Feb, [facility] [id number] [place] [address] Jan, Urinary frequency R35.0 [facility] [address] [address] Jan, [facility] [address] [address] Dec, [facility] [address] [address] Oct, [facility] [address] [address] Sep, [facility] [address] [facility] [id number] [address] [address] Sep, Foreign body in left foot, i nitial encounter S90.852A [facility] [address] [address] Aug, [facility] [address] [address] July, Sciatica M54.30 [place] [address] [address] Jun, [facility] [address] [address] May, Osteoarthritis M19.90 [facility] [address] [address] May, [facility] [address] [address] May, Pain in right hip M25.551 [facility] [address] [facility] [id number] [place] [address] May, Tinea corporis B35.4 [place] [address] [address] Apr, Pain in right hip M25.551 [facility] [address] [address] Mar, Pain in right hip M25.551 [place] [address] [address] Mar, [facility] [address] [address] Feb, Pain in right hip M25.551 [facility] [address] [address] Jan, Acute bronchitis, unspecified organism J 20.9 and Cough R05 [facility] [id number] [place] [address] Jan, Pain in right hip M25.551 [facility] [id number] [place] [address] Dec, Pain in right hip M25.551 [facility] [id number] [place] [address] Nov, Acute bronchitis 466.0 [facility] [address] [address] Nov, [facility] [id number] [place] [address] Oct, [facility] [id number] [place] [address] Sep, [facility] [id number] [place] [address] Aug, [facility] [id number] [place] [address] July, [facility] [address] [address] Jun, [facility] [id number] [place] [address] Jun, [facility] [id number] [place] [address] May, [facility] [id number] [place] [address] May, [facility] [id number] [place] [address] Apr, [facility] [id number] [place] [address] Apr, [facility] [address] [address] Apr, [facility] [address] [id number] [place] [address] Apr, 2014 [facility] [address] [id number] [place] [address] Apr, 2014 [facility] [address] [id number] [place] [address] Apr, [facility] [address] [id number] [place] [address] Mar, [facility] [address] [id number] [place] [address] Mar, [facility] [address] [id number] [place] [address] Feb, [facility] [address] [id number] [place] [address] Feb, [facility] [address] [id number] [place] [address] Feb, [facility] [address] [id number] [place] [address] Dec, [facility] [address] [id number] [place] [address] Dec, [facility] [address] [id number] [place] [address] Nov, 2013 [facility] [address] [id number] [place] [address] Nov, 2013 [facility] [address] [id number] [place] [address] Nov, 2013 [facility] [address] [id number] [place] [address] Nov, 2013 [facility] [address] [id number] [place] [address] Sep, [facility] [address] [id number] [place] [address] Sep, [facility] [address] [id number] [place] [address] Sep, [facility] [address] [id number] [place] [address] Sep, [facility] [address] [id number] [place] [address] Aug, [facility] [address] [id number] [place] [address] Aug, [facility] [address] [id number] [place] [address] Aug, [facility] [address] [id number] [place] [address] Aug, [facility] [address] [id number] [place] [address] July, [facility] [address] [id number] [place] [address] July, [facility] [address] [id number] [place] [address] Jun, [facility] [address] [id number] [place] [address] Jun, [facility] [address] [id number] [place] [address] Jun, [facility] [address] [id number] [place] [address] Jun, [facility] [address] [id number] [place] [address] Jun, [facility] [address] [id number] [place] [address] Jun, [facility] [address] [id number] [place] [address] Jun, [facility] [address] [id number] [place] [address] Jun, [facility] [address] [id number] [place] [address] May, [facility] [address] [id number] [place] [address] May, [facility] [address] [id number] [place] [address] May, [facility] [address] [id number] [place] [address] May, [facility] [address] [id number] [place] [address] May, [facility] [address] [id number] [place] [address] May, [facility] [address] [id number] [place] [address] Apr, [facility] [address] [id number] [place] [address] Apr, [facility] [address] [id number] [place] [address] Apr, [facility] [address] [id number] [place] [address] Apr, [facility] [address] [id number] [place] [address] Mar, [facility] [address] [id number] [place] [address] Mar, [facility] [address] [facility] [id number] [place] [address] Mar, [facility] [address] [id number] [place] [address] Mar, [facility] [address] [id number] [place] [address] Mar, [facility] [address] [id number] [place] [address] Mar, [facility] [address] [id number] [place] [address] Feb, [facility] [address] [id number] [place] [address] Feb, [facility] [address] [id number] [place] [address] Feb, [facility] [address] [id number] [place] [address] Feb, [facility] [address] [id number] [place] [address] Feb, [facility] [address] [id number] [place] [address] Feb, [facility] [address] [id number] [place] [address] Feb, [facility] [address] [id number] [place] [address] Feb, [facility] [address] [id number] [place] [address] Feb, [facility] [address] [id number] [place] [address] Feb, [facility] [address] [id number] [place] [address] Feb, [facility] [address] [id number] [place] [address] Feb, [facility] [address] [id number] [place] [address] Jan, [facility] [address] [id number] [place] [address] Jan, [facility] [address] [id number] [place] [address] Jan, [facility] [address] [id number] [place] [address] Jan, [facility] [address] [id number] [place] [address] Jan, [facility] [address] [id number] [place] [address] Jan, [facility] [address] [id number] [place] [address] Jan, [facility] [address] [id number] [place] [address] Jan, [facility] [address] [id number] [place] [address] Jan, [facility] [address] [id number] [place] [address] Jan, [facility] [address] [id number] [place] [address] Dec, [facility] [address] [id number] [place] [address] Dec, [facility] [address] [id number] [place] [address] Nov, [facility] [address] [id number] [place] [address] Nov, [facility] [address] [id number] [place] [address] Nov, [facility] [address] [id number] [place] [address] Nov, [facility] [address] [id number] [place] [address] Nov, [facility] [address] [id number] [place] [address] Oct, [facility] [address] [id number] [place] [address] Oct, [facility] [address] [id number] [place] [address] Oct, [facility] [address] [id number] [place] [address] Oct, [facility] [address] [id number] [place] [address] Oct, [facility] [address] [id number] [place] [address] Sep, [facility] [address] [id number] [place] [address] Sep, [facility] [address] [id number] [place] [address] Sep, [facility] [address] [id number] [place] [address] Sep, [facility] [address] [id number] [place] [address] Sep, [facility] [address] [id number] [place] [address] Sep, [facility] [address] [id number] [place] [address] Aug, [facility] [address] [id number] [place] [address] Aug, [facility] [address] [id number] [place] [address] July, [facility] [address] [id number] [place] [address] July, [facility] [address] [id number] [place] [address] July, [facility] [address] [id number] [place] [address] Jun, [facility] [address] [id number] [place] [address] Jun, [facility] [address] [id number] [place] [address] 16 Jun, 2012 [facility] [address] [id number] [place] [address] Jun, [facility] [address] [id number] [place] [address] May, [facility] [address] [id number] [place] [address] May, [facility] [address] [id number] [place] [address] Apr, [facility] [address] [id number] [place] [address] Apr, [facility] [address] [id number] [place] [address] Apr, [facility] [address] [id number] [place] [address] Apr, [facility] [address] [id number] [place] [address] Apr, [facility] [address] [id number] [place] [address] Apr, [facility] [address] [id number] [place] [id number] Apr, [facility] [address] [id number] [place] [address] Apr, [facility] [address] [id number] [place] [address] Mar, [facility] [address] [id number] [place] [address] Mar, [facility] [address] [id number] [place] [address] Mar, [facility] [address] [id number] [place] [address] Mar, [facility] [address] [id number] [place] [address] Jan, [facility] [address] [id number] [place] [address] Jan, [facility] [id number] [place] [address] Jan, [facility] [address] [id number] [place] [address] Jan, [facility] [address] [id number] [place] [address] Jan, [facility] [id number] [place] [address] Dec, [facility] [address] [id number] [place] [address] Dec, [facility] [address] [id number] [place] [address] Dec, [facility] [address] [id number] [place] [address] Dec, [facility] [address] [id number] [place] [address] Nov, [facility] [address] [id number] [place] [address] Oct, [facility] [address] [id number] [place] [address] Oct, [facility] [address] [id number] [place] [address] Oct, [facility] [address] [id number] [place] [address] Oct, [facility] [address] [id number] [place] [address] Oct, [facility] [address] [id number] [place] [address] Sep, [facility] [address] [id number] [place] [address] Sep, [facility] [address] [id number] [place] [address] Aug, [facility] [address] [id number] [place] [address] Aug, [facility] [address] [id number] [place] [address] Aug, [facility] [address] [id number] [place] [address] Aug, [facility] [address] [id number] [place] [address] July, [facility] [address] [id number] [place] [address] Jun, [facility] [address] [id number] [place] [address] May, [facility] [address] [id number] [place] [address] May, [facility] [address] [id number] [place] [address] May, [facility] [address] [id number] [place] [address] Mar, [facility] [address] [id number] [place] [address] Feb, [facility] [address] [id number] [place] [address] Feb, [facility] [address] [id number] [place] [address] Jan, [facility] [address] [id number] [place] [address] Jan, [facility] [address] [id number] [place] [address] Jan, [facility] [address] [id number] [place] [address] Jan, [facility] [address] [id number] [place] [address] 30 Jan, 2010 [facility] [address] [id number] [place] [address] Dec, [facility] [address] [id number] [place] [address] Dec, [facility] [address] [id number] [place] [address] Dec, [facility] [address] [id number] [place] [address] May, [facility] [address] [id number] [place] [address] 15 May, 2009 [facility] [address] [id number] [place] [address] Apr, [facility] [address] [id number] [place] [address] Jan, [facility] [address] [id number] [place] [address] Apr, IMMUNIZATIONS No Known Immunizations SOCIAL HISTORY [...] for cancer Hospitalization History surgeries Hospitalization History [facility] ER, heart- kidney- Stayed a t [facility] ICU 12/2017 Hospitalization History [facility] ER 03/2018 Hospitalization History [facility]- Stroke 2 weeks 06/2018 Hospitalization History ER 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
--- OUTSIDE RECORDS SUMMARY | 2019-06-06 21:43 | XMS REPORT ---
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 Name Role Phone EUGENIO LINDA Unavailable PROBLEMS Type Condition ICD9-CM Code CTX59-OE Code Onset Dates Condition S tatus SNOMED Code Problem Other chronic pain G89.29 Active 8 9401437 Problem Other organ or system involvement in systemic julito pus erythematosus M32.19 Active 99393404 Problem 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 E78.2 Active 633026058 Problem Asymptomatic menopausal state Z78.0 Active 47575146 Problem Anxiety F41.9 Active 17685576 Problem Right renal artery stenosis I70.1 Ac tive 01411698631548131 Problem Episode of recurrent major d epressive disorder, unspecified depression episode severity F33.9 Active 266346713 Problem Non-pressure chronic ulcer o f other part of unspecified foot limited to breakdown of skin L97.501 Active 333489908 Problem Other chronic pain G89.29 Active 8 3556008 Problem Non-pressure chronic ulcer o f other part of unspecified foot limited to breakdown of skin L97.501 Active 762709561 Problem Urinary frequency R35.0 Active 16 8679170 Problem Acute right-sided low back pain with right-sided sciatica M54.41 Active 233778720 Problem Lumbago with sciatica, right side M54.41 Active 062601224 Problem 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 43674077 Problem Sialoadenitis, unspecified K11.20 Act gulshan 92862850 Problem Cerebrovascular accident (CV A) due to occlusion of other cerebral artery I63.59 Active 652288145 Problem Sciatica M54.30 Active 06263143 Problem 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.01 Active 521863495 Problem Systolic congestive heart failure, unspecified HF chronici ty I50.20 Active 04438398 Problem Unsteady gait R26.81 Active 629743 008 Problem Seborrheic keratoses L82.1 Active 209865192 Problem Frequent falls R29.6 Active 67910 2002 Problem HILARIO (obstructive sleep apnea) G47.33 Active 52780840 Problem Necrosis I96 Active 980254494 Problem 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 Active 845745434 Problem Gangrene I96 Active 918778031 Problem Hepatitis C B19.20 Active 64533810 Problem Type 2 diabetes mellitus with foot ulcer E11.621 Active 013551440612757 Problem Type 2 diabetes mellitus with foot ulcer E11.621 Active 182805428999673 Problem Arterial insufficiency of lower extremity I73.9 Active 025498924810558 Problem Cardiomyopathy of undetermined type I42.9 Active 78101957 Problem Chronic anticoagulation Z79.01 Active 881340228 Problem Atherosclerosis of renal artery I70.1 Active 673705363931625 Problem Systemic lupus erythematosus , unspecified SLE type, unspecified organ involvement status M32.9 Active 59638102 Problem group home 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 Z79 .01 Active 873177786 Problem Ventricular tachycardia I47.2 Active 38444091 Problem Current moderate episode of major depressive disorder without prior episode F32.1 Active 15939361 Problem Body mass index (BMI) 29.0-29.9, adult Z68.29 Active 958830162 Problem Hypertension I10 Active 4762593 3 ALLERGIES No Information ENCOUNTERS Encounter Location Date Diagnosis [facility] [id number] [place] [address] May, [facility] [address] [address] 03 May, 2019 Other chronic pain G89.29 [facility] [id number] [place] [address] 20 Apr, 2019 Atherosclerosis of renal artery I70.1 ; Cardiomyopathy of undetermined type I42.9 and Ventricular tachycardia I47.2 [facility] [id number] [place] [address] 14 Apr, 2019 [facility] [address] [facility] [id number] [address] [place] [address] 11 Apr, 2019 Non-intractable vomiting wit h nausea, unspecified vomiting type R11.2 [place] [address] [address] Apr, Other chronic pain G89.29 [place] [address] [address] Mar, Other chronic pain G89.29 [place] [address] [address] Feb, Renal insufficiency N28.9 [place] [address] [address] Feb, [place] [address] [address] Feb, Frequent headaches R51 and Hypertension I10 [place] [address] [address] Feb, Other chronic pain G89.29 [place] [address] [address] Jan, Encounter for Medicare annual wellness e [...] episode F32.1 and Encounter for immunization Z23 [place] [address] [address] Jan, [address] [address] Jan, Other chronic pain G89.29 [place] [address] [address] Dec, [address] [address] Dec, Hypokalemia E87.6 [facility] [address] [address] 15 Dec, 2018 Nausea R11.0 [place] [address] [address] 14 Dec, 2018 Other chronic pain G89.29 [place] [address] [address] 10 Dec, 2018 Systolic congestive heart failure, unspe cified HF chronicity I50.20 and Ventricular tachycardia I47.2 [place] [address] [address] 08 Dec, 2018 [place] [address] [address] 17 Nov, 2018 Other chronic pain G89.29 [place] [address] [address] Nov, Nausea with vomiting, unspecified R11.2 [place] [address] [address] Oct, [place] [address] [address] Oct, Other chronic pain G89.29 [place] [address] [address] Oct, [place] [address] [address] Oct, Arterial insufficiency of lower extremit y I73.9 and High risk medication use Z79.899 [facility] [address] [facility] [id number] [place] [address] Oct, Type 2 diabetes mellitus wit h foot ulcer E11.621 and Non-pressure chronic ulcer of other part of unspecified foot limited to breakdown of skin L97.501 [facility] [address] [facility] [id number] [place] [address] Oct, Gangrene I96 [place] [address] [address] Sep, Other chronic pain G89.29 [place] [address] [id number] Sep, Status post CVA Z86.73 ; Unsteady gait R 26.81 and Frequent falls R29.6 [place] [address] [address] Sep, Nausea with vomiting, unspecified R11.2 [place] [address] [address] Sep, Other chronic pain G89.29 [place] [address] [address] Aug, [place] [address] [address] Aug, Other chronic pain G89.29 [place] [address] [address] July, group home current use of anticoagulant Z 79.01 and Cerebrovascular accident (CVA) due to occlusion of other cerebral artery I63.[address] [address] July, Renal insufficiency N28.[address] [address] July, Cerebrovascular accident (CVA) due to oc clusion of other cerebral artery I63.59 and Unexplained weight loss R63.4 [place] [address] [address] July, [place] [address] [address] July, [address] [address] July, Unexplained weight loss R63.4 and Long t erm current use of anticoagulant Z79.01 [place] [address] [address] July, Other chronic pain G89.29 [place] [address] [address] Jun, Other chronic pain G89.29 [place] [address] [address] May, Unexplained weight loss R63.4 [place] [address] [address] May, Nausea with vomiting, unspecified R11.2 [place] [address] [address] May, Non-recurrent acute suppurative otitis m edia of right ear without spontaneous rupture of tympanic membrane H66.001 and Chronic anticoagulation Z79.01 [place] [address] [address] May, Other chronic pain G89.29 [facility] [address] [facility] [id number] [address] [place] [address] Apr, Skin tear of right forearm w ithout complication, initial encounter S51.811A ; Skin tear of left forearm without complication, initial encounter S51.812A and Encounter for immunization Z23 [place] [address] [address] Apr, [place] [address] [address] Apr, Diarrhea, unspecified R19.7 ; Nausea wit h vomiting, unspecified R11.2 and 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 [place] [address] [address] 05 Apr, 2018 Other chronic pain G89.29 [place] [address] [address] Mar, Other chronic pain G89.29 [place] [address] [address] Mar, Other chronic pain G89.29 [facility] [address] [address] Mar, [facility] [address] [address] Mar, Other organ or system involvement in sys temic lupus erythematosus M32.19 [facility] [address] [address] Mar, Non-recurrent acute suppurative otitis m edia of right ear without spontaneous rupture of tympanic membrane H66.001 and Chronic anticoagulation Z79.01 [facility] [address] [facility] [id number] [address] [place] [address] Feb, Sialoadenitis, unspecified K 11.20 [place] [address] [address] Feb, Other chronic pain G89.29 [place] [address] [address] Jan, group home current use of anticoagulant t herapy Z79.01 [place] [address] [address] Jan, Other chronic pain G89.29 ; Lumbago with sciatica, right side M54.41 ; Other chronic pain G89.29 ; Tobacco abuse Z72.0 ; Tobacco abuse counseling Z71.6 ; 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 E78.2 and group home 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 Z79.01 [facility] [id number] [place] [address] Jan, [place] [address] [address] Dec, [facility] [address] [address] Dec, [place] [address] [address] Dec, [place] [address] [address] Dec, 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 E78.2 ; Other chron [...] involvement in systemic lupus erythematosus M32.19 [facility] [employer] [address] [place] [id number] Dec, Right renal artery stenosis I70.1 ; Othe r organ or system involvement in systemic lupus erythematosus M32.19 ; Hepatitis C B19.20 ; Tobacco abuse Z72.0 and Weakness R53.1 [facility] [employer] [address] [place] [id number] Dec, [place] [address] [address] Dec, [place] [address] [address] Dec, Other organ or system involvement in sys temic lupus erythematosus M32.19 [facility] [employer] [address] [place] [id number] Dec, Right renal artery stenosis I70.1 ; Inju ry of right kidney, sequela S37.001S ; Tobacco abuse Z72.0 ; Systemic lupus erythematosus, unspecified SLE type, unspecified organ involvement status M32.9 ; Hepatitis C B19.20 and Candidiasis of female genitalia B37.3 [place] [address] [address] Dec, Other organ or system involvement in sys temic lupus erythematosus M32.19 [place] [address] [address] Dec, Other organ or system involvement in sys temic lupus erythematosus M32.19 [facility] [id number] [place] [address] Dec, [facility] [id number] [place] [address] Nov, Other organ or system involvement in sys temic lupus erythematosus M32.19 [facility] [id number] [place] [address] Oct, Other organ or system involvement in sys temic lupus erythematosus M32.19 [facility] [address] [address] Sep, Other organ or system involvement in sys temic lupus erythematosus M32.19 [facility] [address] [address] Aug, Anxiety F41.9 [facility] [address] [address] Aug, Other organ or system involvement in sys temic lupus erythematosus M32.19 [facility] [id number] [place] [address] July, Medicare annual wellness visit, initial Z00.00 ; Anxiety F41.9 ; HILARIO (obstructive sleep apnea) G47.33 ; Hepatitis C B19.20 ; Other chronic pain G89.29 ; Asymptomatic menopausal state Z78.0 and Episode of recurrent major depressive disorder, unspecified depression episode severity F33.9 [facility] [id number] [place] [address] July, Anxiety F41.9 [facility] [id number] [place] [address] July, Other organ or system involvement in sys temic lupus erythematosus M32.19 [facility] [id number] [place] [address] July, [facility] [id number] [place] [address] Jun, Other organ or system involvement in sys temic lupus erythematosus M32.19 ; BMI 40.0-44.9, adult Z68.41 ; Other chronic pain G89.29 and Controlled substance agreement signed Z79.899 [place] [address] [address] May, Sciatica M54.30 [place] [address] [address] Apr, Sciatica M54.30 [place] [address] [address] Mar, Sciatica M54.30 [place] [address] [address] Feb, Sciatica M54.30 [place] [address] [address] Jan, Sciatica M54.30 [place] [address] [address] Jan, Sciatica M54.30 [place] [address] [address] Dec, Sciatica M54.30 [place] [address] [address] 18 Dec, 2016 Sciatica M54.30 [place] [address] [address] 29 Nov, 2016 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 E78.2 ; 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 and Family history of early CAD Z82.49 [place] [address] [address] Nov, Sciatica M54.30 [place] [address] [address] Nov, 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 E78.2 ; 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 ; Family history of early CAD Z82.49 ; Other chronic pain G89.29 and Pain in left shoulder M25.512 [facility] [id number] [place] [address] Nov, Acute pain of left shoulder M25.512 [facility] [id number] [place] [address] Oct, Sciatica M54.30 [facility] [address] [address] Oct, [facility] [address] [address] Sep, Sciatica M54.30 [facility] [address] [address] Sep, Acute pain of left shoulder M25.512 [facility] [address] [address] Sep, Acute pain of left shoulder M25.512 [place] [address] [address] Aug, Sciatica M54.30 [place] [address] [address] Aug, Sciatica M54.30 ; Tobacco abuse Z72.0 an d Tobacco abuse counseling Z71.6 [place] [id number] [place] [address] Aug, Acute pain of left shoulder M25.512 [facility] [address] [facility] [id number] [place] [address] Aug, Contusion of right shoulder, initial encounter S40.011A ; Acute pain of left shoulder M25.512 and Shortness of breath R06.02 [facility] [address] [address] Aug, Lumbago with sciatica, right side M54.41 [facility] [id number] [place] [address] July, [facility] [address] [address] July, Lumbago with sciatica, right side M54.41 [facility] [address] [address] Jun, Lumbago with sciatica, right side M54.41 [facility] [address] [address] May, Lumbago with sciatica, right side M54.41 [facility] [id number] [place] [address] May, Herpes zoster without compli cation B02.9 [facility] [address] [address] May, Back pain M54.9 and Acute ri ght-sided low back pain with right-sided sciatica M54.41 [place] [address] [address] Apr, [place] [address] [address] Apr, Lumbago with sciatica, right side M54.41 and Other chronic pain G89.29 [place] [address] [address] Apr, [place] [address] [address] Mar, [place] [address] [address] Mar, [place] [address] [address] Feb, [facility] [id number] [place] [address] Jan, Urinary frequency R35.0 [place] [address] [address] Jan, [facility] [id number] [place] [address] Dec, [facility] [address] [address] Oct, [facility] [address] [address] Sep, [facility] [address] [facility] [id number] [place] [address] Sep, Foreign body in left foot, i nitial encounter S90.852A [facility] [address] [address] Aug, [facility] [address] [address] July, Sciatica M54.30 [facility] [address] [address] Jun, [facility] [address] [address] May, Osteoarthritis M19.90 [facility] [address] [address] May, [facility] [address] [address] May, Pain in right hip M25.551 [facility] [address] [facility] [id number] [place] [address] May, Tinea corporis B35.4 [facility] [address] [address] Apr, Pain in right hip M25.551 [facility] [address] [address] Mar, Pain in right hip M25.551 [facility] [address] [address] Mar, [facility] [address] [address] Feb, Pain in right hip M25.551 [facility] [id number] [place] [address] Jan, Acute bronchitis, unspecified organism J 20.9 and Cough R05 [facility] [id number] [place] [address] Jan, Pain in right hip M25.551 [facility] [address] [address] Dec, Pain in right hip M25.551 [facility] [address] [address] Nov, Acute bronchitis 466.0 [facility] [address] [address] Nov, [facility] [address] [address] Oct, [facility] [id number] [place] [address] Sep, [facility] [address] [address] Aug, [facility] [address] [address] July, [facility] [id number] [place] [address] 14 Jun, 2014 [facility] [id number] [place] [address] Jun, [facility] [id number] [place] [address] May, [facility] [address] [address] May, [facility] [id number] [place] [address] Apr, [facility] [address] [address] Apr, 2014 [facility] [address] [id number] [place] [address] Apr, 2014 [facility] [address] [id number] [place] [address] Apr, 2014 [facility] [address] [id number] [place] [address] Apr, 2014 [facility] [address] [id number] [place] [address] Apr, 2014 [facility] [address] [id number] [place] [address] Mar, [facility] [address] [id number] [place] [address] Mar, [facility] [address] [id number] [place] [address] Feb, [facility] [address] [id number] [place] [address] Feb, [facility] [address] [id number] [place] [address] Feb, [facility] [address] [id number] [place] [address] Dec, [facility] [address] [id number] [place] [address] Dec, [facility] [address] [id number] [place] [address] Nov, [facility] [address] [id number] [place] [address] Nov, 2013 [facility] [address] [id number] [place] [address] Nov, [facility] [address] [id number] [place] [address] Nov, [facility] [address] [id number] [place] [address] Sep, [facility] [address] [id number] [place] [address] Sep, [facility] [address] [id number] [place] [address] Sep, [facility] [address] [id number] [place] [address] Sep, [facility] [address] [id number] [place] [address] Aug, [facility] [address] [id number] [place] [address] Aug, [facility] [address] [id number] [place] [address] Aug, [facility] [address] [id number] [place] [address] Aug, [facility] [address] [id number] [place] [address] July, [facility] [address] [id number] [place] [address] July, [facility] [address] [id number] [place] [address] Jun, [facility] [address] [id number] [place] [address] Jun, [facility] [address] [id number] [place] [address] Jun, [facility] [address] [id number] [place] [address] Jun, [facility] [address] [id number] [place] [address] Jun, [facility] [address] [id number] [place] [address] Jun, [facility] [address] [id number] [place] [address] Jun, [facility] [address] [id number] [place] [address] Jun, [facility] [address] [facility] [id number] [place] [address] May, [facility] [address] [facility] [id number] [facility] [address] May, [facility] [address] [id number] [place] [address] May, [facility] [address] [id number] [place] [address] May, [facility] [address] [facility] [id number] [place] [address] May, [facility] [address] [id number] [place] [address] May, [facility] [address] [id number] [place] [address] Apr, [facility] [address] [id number] [place] [address] Apr, [facility] [address] [id number] [place] [address] Apr, [facility] [address] [id number] [place] [address] Apr, [facility] [address] [id number] [place] [address] Mar, [facility] [address] [id number] [place] [address] Mar, [facility] [address] [id number] [place] [address] Mar, [facility] [address] [id number] [place] [address] Mar, [facility] [address] [id number] [place] [address] Mar, [facility] [address] [id number] [place] [address] Mar, [facility] [address] [id number] [place] [address] Feb, [facility] [address] [id number] [place] [address] Feb, [facility] [address] [id number] [place] [address] Feb, [facility] [address] [id number] [place] [address] Feb, [facility] [place] [facility] [address] [id number] [place] [address] Feb, [facility] [place] [facility] [address] [id number] [place] [address] Feb, [facility] [place] [facility] [address] [id number] [place] [address] Feb, [facility] [place] [facility] [address] [id number] [place] [address] Feb, [facility] [place] [facility] [address] [id number] [place] [address] Feb, [facility] [place] [facility] [address] [id number] [place] [address] Feb, [facility] [place] [facility] [address] [id number] [place] [address] Feb, [facility] [place] [facility] [address] [id number] [place] [address] Feb, [facility] [place] [facility] [address] [id number] [place] [address] Jan, [facility] [place] [facility] [address] [id number] [place] [address] Jan, [facility] [place] [facility] [id number] [place] [address] Jan, [facility] [place] [facility] [address] [id number] [place] [address] Jan, [facility] [place] [facility] [address] [id number] [place] [address] Jan, [facility] [place] [facility] [address] [id number] [place] [address] Jan, [facility] [place] [facility] [address] [id number] [place] [address] Jan, [facility] [place] [facility] [address] [id number] [place] [address] Jan, [facility] [place] [facility] [address] [id number] [place] [address] Jan, [facility] [place] [facility] [address] [id number] [place] [address] Jan, [facility] [place] [facility] [address] [id number] [place] [address] Dec, [facility] [place] [facility] [address] [id number] [place] [address] Dec, [facility] [place] [facility] [address] [id number] [place] [address] Nov, [facility] [place] [facility] [address] [id number] [place] [address] 25 Nov, 2012 [facility] [place] [facility] [address] [id number] [place] [address] 09 Nov, 2012 [facility] [place] [facility] [address] [id number] [place] [address] 05 Nov, 2012 [facility] [place] [facility] [address] [id number] [place] [address] Nov, [facility] [place] [facility] [address] [id number] [place] [address] Oct, [facility] [place] [facility] [address] [id number] [place] [address] Oct, [facility] [place] [facility] [address] [id number] [place] [address] Oct, [facility] [place] [facility] [address] [id number] [place] [address] Oct, [facility] [place] [facility] [address] [id number] [place] [address] Oct, [facility] [place] [facility] [address] [id number] [facility] [address] Sep, [facility] [place] [facility] [address] [facility] [id number] [facility] [place] [address] Sep, [facility] [place] [facility] [address] [id number] [facility] [address] Sep, [facility] [place] [facility] [address] [id number] [facility] [address] Sep, [facility] [place] [facility] [address] [facility] [id number] [facility] [address] Sep, [facility] [place] [facility] [address] [id number] [place] [address] Sep, [facility] [place] [facility] [address] [id number] [place] [address] Aug, [facility] [place] [facility] [address] [id number] [place] [address] Aug, [facility] [place] [facility] [address] [id number] [place] [address] July, [facility] [place] [facility] [address] [id number] [place] [address] July, [facility] [place] [facility] [address] [id number] [place] [address] July, [facility] [place] [facility] [address] [id number] [place] [address] Jun, [facility] [place] [facility] [address] [id number] [place] [address] Jun, [facility] [place] [facility] [address] [id number] [place] [address] 16 Jun, 2012 [facility] [place] [facility] [address] [id number] [place] [address] Jun, [facility] [place] [facility] [address] [id number] [place] [address] May, [facility] [place] [facility] [address] [id number] [place] [address] May, [facility] [place] [facility] [address] [id number] [place] [address] Apr, [facility] [place] [facility] [address] [id number] [place] [address] Apr, [facility] [place] [facility] [address] [id number] [place] [address] Apr, [facility] [place] [facility] [address] [id number] [place] [address] Apr, [facility] [place] [facility] [address] [id number] [place] [address] Apr, [facility] [place] [facility] [address] [id number] [place] [address] Apr, [facility] [place] [facility] [address] [id number] [place] [id number] Apr, [facility] [place] [facility] [address] [id number] [place] [address] Apr, [facility] [place] [facility] [address] [id number] [place] [address] Mar, [facility] [place] [facility] [address] [id number] [place] [address] Mar, [facility] [place] [facility] [address] [id number] [place] [address] Mar, [facility] [place] [facility] [address] [id number] [place] [address] Mar, [facility] [place] [facility] [address] [id number] [place] [address] Jan, [facility] [place] [facility] [id number] [place] [address] Jan, [facility] [place] [facility] [address] [id number] [place] [address] Jan, [facility] [place] [facility] [address] [id number] [place] [address] Jan, [facility] [place] [facility] [address] [id number] [place] [address] Jan, [facility] [place] [facility] [address] [id number] [place] [address] Dec, [facility] [place] [facility] [address] [id number] [place] [address] Dec, [facility] [place] [facility] [address] [id number] [place] [address] Dec, [facility] [place] [facility] [address] [facility] [id number] [place] [address] Dec, [facility] [place] [facility] [address] [id number] [place] [address] Nov, [facility] [place] [facility] [address] [id number] [place] [address] Oct, [facility] [place] [facility] [address] [id number] [place] [address] Oct, [facility] [place] [facility] [address] [id number] [place] [address] Oct, [facility] [place] [facility] [address] [id number] [place] [address] Oct, [facility] [place] [facility] [address] [id number] [place] [address] Oct, [facility] [place] [facility] [address] [id number] [place] [address] Sep, [facility] [place] [facility] [address] [id number] [place] [address] Sep, [facility] [place] [facility] [address] [id number] [place] [address] Aug, [facility] [place] [facility] [address] [id number] [place] [address] Aug, [facility] [place] [facility] [address] [id number] [place] [address] Aug, [facility] [place] [facility] [address] [id number] [place] [address] Aug, [facility] [place] [facility] [address] [id number] [place] [address] July, [facility] [place] [facility] [address] [id number] [place] [address] Jun, [facility] [place] [facility] [address] [id number] [place] [address] May, [facility] [place] [facility] [address] [id number] [place] [address] May, [facility] [place] [facility] [address] [id number] [place] [address] May, [facility] [place] [facility] [address] [id number] [place] [address] Mar, [facility] [place] [facility] [address] [id number] [place] [address] Feb, [facility] [place] [facility] [address] [id number] [place] [address] Feb, [facility] [place] [facility] [address] [id number] [place] [address] Jan, [facility] [place] [facility] [address] [id number] [place] [address] Jan, [facility] [place] [facility] [address] [id number] [place] [address] Jan, [facility] [place] [facility] [address] [id number] [place] [address] Jan, [facility] [place] [facility] [address] [id number] [place] [address] 30 Jan, 2010 [facility] [place] [facility] [address] [id number] [place] [address] 20 Dec, 2009 [facility] [place] [facility] [address] [id number] [place] [address] 13 Dec, 2009 [facility] [place] [facility] [address] [id number] [place] [address] 13 Dec, 2009 [facility] [place] [facility] [address] [id number] [place] [address] 18 May, 2009 [facility] [address] [id number] [place] [address] 15 May, 2009 [facility] [address] [id number] [place] [address] 17 Apr, 2009 [facility] [address] [id number] [place] [address] Jan, [facility] [address] [id number] [place] [address] Apr, IMMUNIZATIONS No Known Immunizations SOCIAL HISTORY [...] for cancer Hospitalization History surgeries Hospitalization History [facility] ER, heart- kidney[facility] Stayed a [facility] 12/2017 Hospitalization History [facility] ER 03/2018 Hospitalization History [facility]- Stroke 2 weeks 06/2018 Hospitalization History ER 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
--- OUTSIDE RECORDS SUMMARY | 2019-06-06 21:43 | XMS REPORT ---
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 Name Role Phone EUGENIO LINDA Unavailable PROBLEMS Type Condition ICD9-CM Code DLF03-DS Code Onset Dates Condition S tatus SNOMED Code Problem Other chronic pain G89.29 Active 8 9803601 Problem Other organ or system involvement in systemic julito pus erythematosus M32.19 Active 57363861 Problem 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 E78.2 Active 324171144 Problem Asymptomatic menopausal state Z78.0 Active 25647898 Problem Anxiety F41.9 Active 00550241 Problem Right renal artery stenosis I70.1 Ac tive [id number] Problem Episode of recurrent major d epressive disorder, unspecified depression episode severity F33.9 Active 393125833 Problem Non-pressure chronic ulcer o f other part of unspecified foot limited to breakdown of skin L97.501 Active 708066971 Problem Other chronic pain G89.29 Active 8 4328044 Problem Non-pressure chronic ulcer o f other part of unspecified foot limited to breakdown of skin L97.501 Active 948806441 Problem Urinary frequency R35.0 Active 16 9201641 Problem Acute right-sided low back pain with right-sided sciatica M54.41 Active 834845169 Problem Lumbago with sciatica, right side M54.41 Active 964336060 Problem 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 90303569 Problem Sialoadenitis, unspecified K11.20 Act gulshan 93069345 Problem Cerebrovascular accident (CV A) due to occlusion of other cerebral artery I63.59 Active 145373101 Problem Sciatica M54.30 Active 59512065 Problem buttermaker current use of anticoagulant Z79.01 Active 216453345 Problem Systolic congestive heart failure, unspecified HF chronici ty I50.20 Active 00683957 Problem Unsteady gait R26.81 Active 270972 008 Problem Seborrheic keratoses L82.1 Active 811580497 Problem Frequent falls R29.6 Active 16959 2002 Problem HILARIO (obstructive sleep apnea) G47.33 Active 15429663 Problem Necrosis I96 Active 186731321 Problem 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 Active 956868836 Problem Gangrene I96 Active 287457201 Problem Hepatitis C B19.20 Active 94631890 Problem Type 2 diabetes mellitus with foot ulcer E11.621 Active 303251886255734 Problem Type 2 diabetes mellitus with foot ulcer E11.621 Active 502663553740877 Problem Arterial insufficiency of lower extremity I73.9 Active 570131312694233 Problem Cardiomyopathy of undetermined type I42.9 Active 94661622 Problem Chronic anticoagulation Z79.01 Active 838060101 Problem Atherosclerosis of renal artery I70.1 Active 164573791115708 Problem Systemic lupus erythematosus , unspecified SLE type, unspecified organ involvement status M32.9 Active 20400421 Problem penitentiary 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 Z79 .01 Active 257935447 Problem Ventricular tachycardia I47.2 Active 28571785 Problem Current moderate episode of major depressive disorder without prior episode F32.1 Active 24359927 Problem Body mass index (BMI) 29.0-29.9, adult Z68.29 Active 219645624 Problem Hypertension I10 Active 3510888 3 ALLERGIES No Information ENCOUNTERS Encounter Location Date Diagnosis [place] [id number] [place] [address] May, [facility] [address] [address] 20 Apr, 2019 Atherosclerosis of renal artery I70.1 ; Cardiomyopathy of undetermined type I42.9 [address]cardia I47.2 [facility] [id number] [place] [address] 14 Apr, 2019 [facility] [address] [facility] [id number] [place] [address] 11 Apr, 2019 Non-intractable vomiting wit h nausea, unspecified vomiting type R11.2 [facility] [id number] [place] [address] Apr, Other chronic pain G89.29 [place] [address] [address] Mar, Other chronic pain G89.29 [place] [address] [address] Feb, Renal insufficiency N28.9 [place] [address] [address] Feb, [place] [address] [address] Feb, Frequent headaches R51 and Hypertension I10 [place] [address] [address] Feb, Other chronic pain G89.29 [place] [address] [address] Jan, Encounter for Medicare annual wellness e [...] episode F32.1 and Encounter for immunization Z23 [place] [address] [address] Jan, [place] [address] [address] Jan, Other chronic pain G89.29 [place] [address] [address] Dec, [place] [address] [address] Dec, Hypokalemia E87.6 [place] [address] [address] Dec, Nausea R11.0 [place] [address] [address] 14 Dec, 2018 Other chronic pain G89.29 [place] [address] [address] Dec, Systolic congestive heart failure, unspe cified HF chronicity I50.20 and Ventricular tachycardia I47.2 [place] [address] [address] 08 Dec, 2018 [place] [address] [address] Nov, Other chronic pain G89.29 [place] [address] [address] Nov, Nausea with vomiting, unspecified R11.2 [place] [address] [address] Oct, [place] [address] [address] Oct, Other chronic pain G89.29 [place] [address] [address] Oct, [place] [address] [address] Oct, Arterial insufficiency of lower extremit y I73.9 and High risk medication use Z79.899 [facility] [address] [place] [address] Oct, Type 2 diabetes mellitus wit h foot ulcer E11.621 and Non-pressure chronic ulcer of other part of unspecified foot limited to breakdown of skin L97.501 [facility] [id number] [place] [address] Oct, Gangrene I96 [place] [address] [address] Sep, Other chronic pain G89.29 [place] [address] [address] Sep, Status post CVA Z86.73 ; Unsteady gait R 26.81 and Frequent falls R29.6 [place] [address] [address] Sep, Nausea with vomiting, unspecified R11.2 [place] [address] [address] Sep, Other chronic pain G89.29 [place] [address] [address] Aug, [place] [address] [address] Aug, Other chronic pain G89.29 [place] [address] [address] July, penitentiary current use of anticoagulant Z 79.01 and Cerebrovascular accident (CVA) due to occlusion of other cerebral artery I63.59 [place] [address] [address] July, Renal insufficiency N28.9 [place] [address] [address] July, Cerebrovascular accident (CVA) due to oc clusion of other cerebral artery I63.59 and Unexplained weight loss R63.4 [place] [address] [address] July, [place] [address] [address] July, [place] [address] [address] July, Unexplained weight loss R63.4 and Long t erm current use of anticoagulant Z79.01 [place] [address] [address] July, Other chronic pain G89.29 [place] [address] [address] Jun, Other chronic pain G89.29 [place] [address] [address] May, Unexplained weight loss R63.4 [place] [address] [address] May, Nausea with vomiting, unspecified R11.2 [place] [address] [address] May, Non-recurrent acute suppurative otitis m edia of right ear without spontaneous rupture of tympanic membrane H66.001 and Chronic anticoagulation Z79.01 [place] [address] [address] May, Other chronic pain G89.29 [facility] [address] 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 [place] [address] [address] Apr, Other chronic pain G89.29 [place] [address] [address] Mar, Other chronic pain G89.29 [place] [address] [address] Mar, Other chronic pain G89.29 [place] [address] [address] 08 Mar, 2018 [place] [address] [address] Mar, Other organ or system involvement in sys temic lupus erythematosus M32.19 [place] [address] [address] Mar, Non-recurrent acute suppurative otitis m edia of right ear without spontaneous rupture of tympanic membrane H66.001 and Chronic anticoagulation Z79.01 [facility] [address] [facility] [id number] [address] [address] Feb, Sialoadenitis, unspecified K 11.20 [place] [address] [address] Feb, Other chronic pain G89.29 [place] [address] [address] Jan, buttermaker current use of anticoagulant t herapy Z79.01 [place] [address] [address] Jan, Other chronic pain G89.29 ; Lumbago with sciatica, right side M54.41 ; Other chronic pain G89.29 ; Tobacco abuse Z72.0 ; Tobacco abuse counseling Z71.6 ; 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 E78.2 and buttermaker 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 Z79.01 [place] [address] [address] Jan, [place] [address] [address] Dec, [place] [address] [address] Dec, [place] [address] [address] Dec, [place] [address] [address] Dec, 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 E78.2 ; Other chron [...] involvement in systemic lupus erythematosus M32.19 [facility] [address] [place] [id number] Dec, Right renal artery stenosis I70.1 ; Othe r organ or system involvement in systemic lupus erythematosus M32.19 ; Hepatitis C B19.20 ; Tobacco abuse Z72.0 and Weakness R53.1 [facility] [employer] [address] [place] [id number] Dec, [place] [address] [address] Dec, [place] [address] [address] Dec, Other organ or system involvement in sys temic lupus erythematosus M32.19 [facility] [employer] [address] [place] [id number] Dec, Right renal artery stenosis I70.1 ; Inju ry of right kidney, sequela S37.001S ; Tobacco abuse Z72.0 ; Systemic lupus erythematosus, unspecified SLE type, unspecified organ involvement status M32.9 ; Hepatitis C B19.20 and Candidiasis of female genitalia B37.3 [place] [address] [address] Dec, Other organ or system involvement in sys temic lupus erythematosus M32.19 [place] [address] [address] Dec, Other organ or system involvement in sys temic lupus erythematosus M32.19 [facility] [address] [address] Dec, [place] [address] [facility] [place] [address] Nov, Other organ or system involvement in sys temic lupus erythematosus M32.19 [facility] [id number] [place] [address] Oct, Other organ or system involvement in sys temic lupus erythematosus M32.19 [place] [id number] [place] [address] Sep, Other organ or system involvement in sys temic lupus erythematosus M32.19 [place] [id number] [place] [address] Aug, Anxiety F41.9 [place] [address] [address] Aug, Other organ or system involvement in sys temic lupus erythematosus M32.19 [place] [id number] [place] [address] July, Medicare annual wellness visit, initial Z00.00 ; Anxiety F41.9 ; HILARIO (obstructive sleep apnea) G47.33 ; Hepatitis C B19.20 ; Other chronic pain G89.29 ; Asymptomatic menopausal state Z78.0 and Episode of recurrent major depressive disorder, unspecified depression episode severity F33.9 [place] [id number] [place] [address] July, Anxiety F41.9 [place] [id number] [place] [address] July, Other organ or system involvement in sys temic lupus erythematosus M32.19 [facility] [id number] [place] [address] July, [place] [address] [address] Jun, Other organ or system involvement in sys temic lupus erythematosus M32.19 ; BMI 40.0-44.9, adult Z68.41 ; Other chronic pain G89.29 and Controlled substance agreement signed Z79.899 [place] [address] [address] May, Sciatica M54.30 [place] [address] [address] Apr, Sciatica M54.30 [place] [address] [address] Mar, Sciatica M54.30 [place] [address] [address] Feb, Sciatica M54.30 [place] [address] [address] 15 Jan, 2017 Sciatica M54.30 [place] [address] [address] 14 Jan, 2017 Sciatica M54.30 [place] [address] [address] Dec, Sciatica M54.30 [place] [address] [address] 18 Dec, 2016 Sciatica M54.30 [place] [address] [address] 29 Nov, 2016 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 E78.2 ; 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 [address] [address] Oct, Sciatica M54.30 [facility] [address] [address] Oct, [facility] [address] [address] Sep, Sciatica M54.30 [facility] [address] [address] Sep, Acute pain of left shoulder M25.512 [place] [address] [address] Sep, Acute pain of left shoulder M25.512 [place] [address] [address] Aug, Sciatica M54.30 [place] [address] [address] Aug, Sciatica M54.30 ; Tobacco abuse Z72.0 an d Tobacco abuse counseling Z71.6 [place] [address] [address] Aug, Acute pain of left shoulder M25.512 [facility] [address] [facility] [id number] [address] [address] Aug, Contusion of right shoulder, initial encounter S40.011A ; Acute pain of left shoulder M25.512 and Shortness of breath R06.02 [facility] [address] [address] Aug, Lumbago with sciatica, right side M54.41 [place] [address] [address] July, [place] [address] [address] July, Lumbago with sciatica, right side M54.41 [place] [address] [address] Jun, Lumbago with sciatica, right side M54.41 [facility] [address] [address] May, Lumbago with sciatica, right side M54.41 [facility] [address] [id number] [place] [address] May, Herpes zoster without compli cation B02.9 [facility] [address] [address] May, Back pain M54.9 and Acute ri ght-sided low back pain with right-sided sciatica M54.41 [facility] [address] [address] Apr, [facility] [address] [address] Apr, Lumbago with sciatica, right side M54.41 and Other chronic pain G89.29 [facility] [address] [address] Apr, [facility] [address] [address] Mar, [facility] [address] [address] Mar, [facility] [address] [address] Feb, [facility] [id number] [place] [address] Jan, Urinary frequency R35.0 [facility] [address] [address] Jan, [facility] [address] [address] Dec, [facility] [address] [address] Oct, [facility] [address] [address] Sep, [facility] [address] [facility] [id number] [place] [address] Sep, Foreign body in left foot, i nitial encounter S90.852A [facility] [address] [address] Aug, [facility] [address] [address] July, Sciatica M54.30 [place] [address] [address] Jun, [facility] [address] [address] May, Osteoarthritis M19.90 [facility] [address] [address] May, [facility] [address] [address] May, Pain in right hip M25.551 [facility] [address] [facility] [id number] [place] [address] May, Tinea corporis B35.4 [place] [address] [address] Apr, Pain in right hip M25.551 [facility] [address] [address] Mar, Pain in right hip M25.551 [place] [address] [address] Mar, [facility] [address] [address] Feb, Pain in right hip M25.551 [facility] [address] [address] Jan, Acute bronchitis, unspecified organism J 20.[address] [facility] [id number] [place] [address] Jan, Pain in right hip M25.551 [facility] [id number] [place] [address] Dec, Pain in right hip M25.551 [facility] [id number] [place] [address] Nov, Acute bronchitis 466.0 [facility] [address] [address] Nov, [facility] [id number] [place] [address] Oct, [facility] [id number] [place] [address] Sep, [facility] [id number] [place] [address] Aug, [facility] [id number] [place] [address] July, [facility] [address] [address] Jun, [facility] [id number] [place] [address] Jun, [facility] [id number] [place] [address] May, [facility] [id number] [place] [address] May, [facility] [id number] [place] [address] Apr, [facility] [id number] [place] [address] Apr, [facility] [address] [address] Apr, [facility] [address] [id number] [place] [address] Apr, 2014 [facility] [address] [id number] [place] [address] Apr, 2014 [facility] [address] [id number] [place] [address] Apr, [facility] [address] [id number] [place] [address] Mar, [facility] [address] [id number] [place] [address] Mar, [facility] [address] [id number] [place] [address] Feb, [facility] [address] [id number] [place] [address] Feb, [facility] [address] [id number] [place] [address] Feb, [facility] [address] [id number] [place] [address] Dec, [facility] [address] [id number] [place] [address] Dec, [facility] [address] [id number] [place] [address] Nov, 2013 [facility] [address] [id number] [place] [address] Nov, 2013 [facility] [address] [id number] [place] [address] Nov, 2013 [facility] [address] [id number] [place] [address] Nov, 2013 [facility] [address] [id number] [place] [address] Sep, [facility] [address] [id number] [place] [address] Sep, [facility] [address] [id number] [place] [address] Sep, [facility] [address] [id number] [place] [address] Sep, [facility] [address] [id number] [place] [address] Aug, [facility] [address] [id number] [place] [address] Aug, [facility] [address] [id number] [place] [address] Aug, [facility] [address] [id number] [place] [address] Aug, [facility] [address] [id number] [place] [address] July, [facility] [address] [id number] [place] [address] July, [facility] [address] [id number] [place] [address] Jun, [facility] [address] [id number] [place] [address] Jun, [facility] [address] [id number] [place] [address] Jun, [facility] [address] [id number] [place] [address] Jun, [facility] [address] [id number] [place] [address] Jun, [facility] [address] [id number] [place] [address] Jun, [facility] [address] [id number] [place] [address] Jun, [facility] [address] [id number] [place] [address] Jun, [facility] [address] [id number] [place] [address] May, [facility] [address] [id number] [place] [address] May, [facility] [address] [id number] [place] [address] May, [facility] [address] [id number] [place] [address] May, [facility] [address] [id number] [place] [address] May, [facility] [address] [id number] [place] [address] May, [facility] [address] [id number] [place] [address] Apr, [facility] [address] [id number] [place] [address] Apr, [facility] [address] [id number] [place] [address] Apr, [facility] [address] [id number] [place] [address] Apr, [facility] [address] [id number] [place] [address] Mar, [facility] [address] [id number] [place] [address] Mar, [facility] [address] [id number] [place] [address] Mar, [facility] [address] [id number] [place] [address] Mar, [facility] [address] [id number] [place] [address] Mar, [facility] [address] [id number] [place] [address] Mar, [facility] [address] [id number] [place] [address] Feb, [facility] [address] [id number] [place] [address] Feb, [facility] [address] [id number] [place] [address] Feb, [facility] [address] [id number] [place] [address] Feb, [facility] [address] [id number] [place] [address] Feb, [facility] [address] [id number] [place] [address] Feb, [facility] [address] [id number] [place] [address] Feb, [facility] [address] [id number] [place] [address] Feb, [facility] [address] [id number] [place] [address] Feb, [facility] [address] [id number] [place] [address] Feb, [facility] [address] [id number] [place] [address] Feb, [facility] [address] [id number] [place] [address] Feb, [facility] [address] [id number] [place] [address] Jan, [facility] [address] [id number] [place] [address] Jan, [facility] [address] [id number] [place] [address] Jan, [facility] [address] [id number] [place] [address] Jan, [facility] [address] [id number] [place] [address] Jan, [facility] [address] [id number] [place] [address] Jan, [facility] [address] [id number] [place] [address] Jan, [facility] [address] [id number] [place] [address] Jan, [facility] [address] [id number] [place] [address] Jan, [facility] [address] [id number] [place] [address] Jan, [facility] [address] [id number] [place] [address] Dec, [facility] [address] [id number] [place] [address] Dec, [facility] [address] [id number] [place] [address] Nov, [facility] [address] [id number] [place] [address] Nov, [facility] [address] [id number] [place] [address] Nov, [facility] [address] [id number] [place] [address] Nov, [facility] [address] [id number] [place] [address] Nov, [facility] [address] [id number] [place] [address] Oct, [facility] [address] [id number] [place] [address] Oct, [facility] [address] [id number] [place] [address] Oct, [facility] [address] [id number] [place] [address] Oct, [facility] [address] [id number] [place] [address] Oct, [facility] [address] [id number] [place] [address] Sep, [facility] [address] [id number] [place] [address] Sep, [facility] [address] [id number] [place] [address] Sep, [facility] [address] [id number] [place] [address] Sep, [facility] [address] [id number] [place] [address] Sep, [facility] [address] [id number] [place] [address] Sep, [facility] [address] [id number] [place] [address] Aug, [facility] [address] [id number] [place] [address] Aug, [facility] [address] [id number] [place] [address] July, [facility] [address] [id number] [place] [address] July, [facility] [address] [id number] [place] [address] July, [facility] [address] [id number] [place] [address] Jun, [facility] [address] [id number] [place] [address] Jun, [facility] [address] [id number] [place] [address] 16 Jun, 2012 [facility] [address] [id number] [place] [address] Jun, [facility] [address] [id number] [place] [address] May, [facility] [address] [id number] [place] [address] May, [facility] [address] [id number] [place] [address] Apr, [facility] [address] [id number] [place] [address] Apr, [facility] [address] [id number] [place] [address] Apr, [facility] [address] [id number] [place] [address] Apr, [facility] [address] [id number] [place] [address] Apr, [facility] [address] [id number] [place] [address] Apr, [facility] [address] [id number] [place] [id number] Apr, [facility] [address] [id number] [place] [address] Apr, [facility] [address] [id number] [place] [address] Mar, [facility] [address] [id number] [place] [address] Mar, [facility] [address] [id number] [place] [address] Mar, [facility] [address] [id number] [place] [address] Mar, [facility] [address] [id number] [place] [address] Jan, [facility] [address] [id number] [place] [address] Jan, [facility] [id number] [place] [address] Jan, [facility] [address] [id number] [place] [address] Jan, [facility] [address] [id number] [place] [address] Jan, [facility] [id number] [place] [address] Dec, [facility] [address] [id number] [place] [address] Dec, [facility] [address] [id number] [place] [address] Dec, [facility] [address] [id number] [place] [address] Dec, [facility] [address] [id number] [place] [address] Nov, [facility] [address] [id number] [place] [address] Oct, [facility] [address] [id number] [place] [address] Oct, [facility] [address] [id number] [place] [address] Oct, [facility] [address] [id number] [place] [address] Oct, [facility] [address] [id number] [place] [address] Oct, [facility] [address] [id number] [place] [address] Sep, [facility] [address] [id number] [place] [address] Sep, [facility] [address] [id number] [place] [address] Aug, [facility] [address] [id number] [place] [address] Aug, [facility] [address] [id number] [place] [address] Aug, [facility] [address] [id number] [place] [address] Aug, [facility] [address] [id number] [place] [address] July, [facility] [address] [id number] [place] [address] Jun, [facility] [address] [id number] [place] [address] May, [facility] [address] [id number] [place] [address] May, [facility] [address] [id number] [place] [address] May, [facility] [address] [id number] [place] [address] Mar, [facility] [address] [id number] [place] [address] Feb, [facility] [address] [id number] [place] [address] Feb, [facility] [address] [id number] [place] [address] Jan, [facility] [address] [id number] [place] [address] Jan, [facility] [address] [id number] [place] [address] Jan, [facility] [address] [id number] [place] [address] Jan, [facility] [address] [id number] [place] [address] 30 Jan, 2010 [facility] [address] [id number] [place] [address] Dec, [facility] [address] [id number] [place] [address] Dec, [facility] [address] [id number] [place] [address] Dec, [facility] [address] [id number] [place] [address] May, [facility] [address] [id number] [place] [address] 15 May, [address] [facility] [address] [id number] [place] [address] Apr, [facility] [address] [id number] [place] [address] Jan, [facility] [address] [id number] [place] [address] Apr, IMMUNIZATIONS No Known Immunizations SOCIAL HISTORY [...] [facility] ER, heart- kidney- Stayed a t [facility] ICU 12/2017 Hospitalization History [facility] ER 03/2018 Hospitalization History [facility]- Stroke 2 weeks 06/2018 Hospitalization History ER 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
--- OUTSIDE RECORDS SUMMARY | 2019-06-06 21:56 | XMS REPORT | Continuity of Care Document ---
Author Organization Unknown Address Unknown Phone Unavailable Allergies Active Description Code Type Severity Reaction Onset Reported/Identified Relationship to Patient Clinical Status Yes No Known Drug Allergies [id number] Drug Allergy Unknown N/A 10/21/2008 Yes Cymbalta 60 mg enteric coated capsule Drug Allergy 11/11/2011 Yes Cymbalta 60 mg enteric coated capsule Drug Allergy N/A N/A 11/11/2011 Medications There is no data. Problems Date Dx Coded Attending Type Code Diagnosis Diagnosed By 02/20/1109 ANTHONY CRYSTAL, HERNAN Mead Ot M86.8X8 OTHER OSTEOMYELITIS, OTHER SITE 12/07/2007 840.9 Spra in/strain Shoulder/arm 12/07/2007 840.9 Spra in/strain Shoulder/arm 12/07/2007 LUANNE LINDA DO 840.9 Sprain/strain Shoulder/arm 12/07/2007 LUANNE LINDA DO 840.9 Sprain/strain Shoulder/arm 12/07/2007 840.9 Spra in/strain Shoulder/arm 12/07/2007 840.9 Spra in/strain Shoulder/arm 12/07/2007 840.9 Spra in/strain Shoulder/arm 12/07/2007 840.9 Spra in/strain Shoulder/arm 12/07/2007 840.9 Spra in/strain Shoulder/arm 12/07/2007 840.9 Spra in/strain Shoulder/arm 12/07/2007 LUANNE LINDA DO 840.9 Sprain/strain Shoulder/arm 12/07/2007 LUANNE LINDA DO 840.9 Sprain/strain Shoulder/arm 12/07/2007 LUANNE LINDA DO 840.9 Sprain/strain Shoulder/arm 12/07/2007 HERNAN CRUZ MD 840 .9 Sprain/strain Shoulder/arm 12/07/2007 LUANNE LINDA DO 840.9 Sprain/strain Shoulder/arm 12/07/2007 LINDA DO, LUANNE K 840.9 Sprain/strain Shoulder/arm 12/07/2007 COLLEEN WAYNE APRN R 840.9 Sprain/strain Shoulder/arm 12/07/2007 LINDA DO, LUANNE [...] Sprain/strain Shoulder/arm 12/07/2007 ONEYDA RUIZ APRN A 84 0.9 Sprain/strain Shoulder/arm 12/07/2007 CHRISTA GLORIA APRN 84 0.9 Sprain/strain Shoulder/arm 12/07/2007 CHRISTA GLORIA APRN 84 0.9 Sprain/strain Shoulder/arm 12/07/2007 COLLEEN WAYNE APRN R 840.9 Sprain/strain Shoulder/arm 12/07/2007 CHRISTA GLORIA APRN 84 0.9 Sprain/strain Shoulder/arm 03/01/2008 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 03/01/2008 599.7 EMILY TURIA 03/01/2008 789.00 Abd ominal Pain Unspecified Site 03/01/2008 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 03/01/2008 599.7 EMILY TURIA 03/01/2008 789.00 Abd ominal Pain Unspecified Site 03/01/2008 LINDA DO, LUANNE K 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 03/01/2008 LINDA DO, LUANNE K 599.7 HEMATURIA 03/01/2008 LINDA DO, LUANNE K 789.00 Abdominal Pain Unspecified Site 03/01/2008 LINDA DO, LUANNE K 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 03/01/2008 LINDA DO, LUANNE K 599.7 HEMATURIA 03/01/2008 LINDA DO, LUANNE K 789.00 Abdominal Pain Unspecified Site 03/01/2008 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 03/01/2008 599.7 EMILY TURIA 03/01/2008 789.00 Abd ominal Pain Unspecified Site 03/01/2008 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 03/01/2008 599.7 EMILY TURIA 03/01/2008 789.00 Abd ominal Pain Unspecified Site 03/01/2008 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 03/01/2008 599.7 EMILY TURIA 03/01/2008 789.00 Abd ominal Pain Unspecified Site 03/01/2008 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 03/01/2008 599.7 EMILY TURIA 03/01/2008 789.00 Abd ominal Pain Unspecified Site 03/01/2008 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 03/01/2008 599.7 EMILY TURIA 03/01/2008 789.00 Abd ominal Pain Unspecified Site 03/01/2008 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 03/01/2008 599.7 EMILY TURIA 03/01/2008 789.00 Abd ominal Pain Unspecified Site 03/01/2008 LINDA DO, LUANNE K 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 03/01/2008 LINDA , LUANNE K 599.7 HEMATURIA 03/01/2008 LINDA DO, LUANNE K 789.00 Abdominal Pain Unspecified Site 03/01/2008 LINDA DO, LUANNE K 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 03/01/2008 LINDA DO, LUANNE K 599.7 HEMATURIA 03/01/2008 LINDA DO LUANNE K 789.00 Abdominal Pain Unspecified Site 03/01/2008 LINDA , LUANNE K 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 03/01/2008 LINDA DO, LUANNE K 599.7 HEMATURIA 03/01/2008 LINDA DO, LUANNE K 789.00 Abdominal Pain Unspecified Site 03/01/2008 HERNAN CRUZ MD 296 .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 03/01/2008 HERNAN CRUZ MD 599 .7 HEMATURIA 03/01/2008 HERNAN CRUZ MD 789 .00 Abdominal Pain Unspecified Site 03/01/2008 LINDA DO LUANNE K 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 03/01/2008 LINDA DO LUANNE K 599.7 HEMATURIA 03/01/2008 LINDA DO, LUANNE K 789.00 Abdominal Pain Unspecified Site 03/01/2008 LINDA DO, LUANNE K 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 03/01/2008 LINDA DO, LUANNE K 599.7 HEMATURIA 03/01/2008 LINDA DO, LUANNE K 789.00 Abdominal Pain Unspecified Site 03/01/2008 WAYNE CADMIUM BURNER, COLLEEN R 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 03/01/2008 WAYNE CADMIUM BURNER, COLLEEN R 599.7 HEMATURIA 03/01/2008 WAYNE CADMIUM BURNER, COLLEEN R 789.00 Abdominal Pain Unspecified Site [...] 789.00 Abdominal Pain Unspecified Site 03/01/2008 WAYNE CADMIUM BURNER COLLEEN R 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 03/01/2008 ROSANA CADMIUM BURNER COLLEEN R 599.7 HEMATURIA 03/01/2008 WAYNE CADMIUM BURNER, COLLEEN R 789.00 Abdominal Pain Unspecified Site 03/01/2008 SARAJAVIER LINGN, ONEYDA A 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 03/01/2008 SARAJAVIER LINGN, ONEYDA A 59 9.7 HEMATURIA 03/01/2008 SARAJAVIER LINGN, ONEYDA A 789.00 Abdominal Pain Unspecified Site 03/01/2008 FAIZAN IRVIN CHRISTA T 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 03/01/2008 CHRISTA GLORIA APRN T 59 9.7 HEMATURIA 03/01/2008 CHRISTA GLORIA APRN T 789.00 Abdominal Pain Unspecified Site 03/01/2008 CHRISTA GLORIA APRN T 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 03/01/2008 FAIZAN IRVIN CHRISTA T 59 9.7 HEMATURIA 03/01/2008 CHRISTA GLORIA APRN T 789.00 Abdominal Pain Unspecified Site 03/01/2008 PERRI WAYNE APRNRICIA R 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 03/01/2008 PERRI WAYNE APRNRICIA R 599.7 HEMATURIA 03/01/2008 [address]RI WAYNE APRNRICIA R 789.00 Abdominal Pain Unspecified Site 03/01/2008 FAIZAN IRVIN CHRISTA T 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 03/01/2008 FAIZAN IRVIN CHRISTA T 59 9.7 HEMATURIA 03/01/2008 FAIZAN IRVIN CHRISTA T 789.00 Abdominal Pain Unspecified Site 08/10/2008 300.00 anxiety 08/10/2008 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 08/10/2008 414.01 COR ONARY ARTERY STENOSIS MULTI-VESSEL 08/10/2008 300.00 anxiety 08/10/2008 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 08/10/2008 414.01 COR ONARY ARTERY STENOSIS MULTI-VESSEL 08/10/2008 LINDA DO, LUANNE K 300.00 anxiety 08/10/2008 LINDA DO, LUANNE K 305.1 NICOTINE DEPENDENCE 08/10/2008 LINDA DO, LUANNE K 414.01 CORONARY ARTERY STENOSIS MULTI-VESSEL 08/10/2008 LINDA DO, LUANNE K 300.00 anxiety 08/10/2008 LINDA DO, LUANNE K 305.1 NICOTINE DEPENDENCE 08/10/2008 LINDA DO, LUANNE K 414.01 CORONARY ARTERY STENOSIS MULTI-VESSEL 08/10/2008 300.00 anxiety 08/10/2008 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 08/10/2008 414.01 COR ONARY ARTERY STENOSIS MULTI-VESSEL 08/10/2008 300.00 anxiety 08/10/2008 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 08/10/2008 414.01 COR ONARY ARTERY STENOSIS MULTI-VESSEL 08/10/2008 300.00 anxiety 08/10/2008 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 08/10/2008 414.01 COR ONARY ARTERY STENOSIS MULTI-VESSEL 08/10/2008 300.00 anxiety 08/10/2008 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 08/10/2008 414.01 COR ONARY ARTERY STENOSIS MULTI-VESSEL 08/10/2008 300.00 anxiety 08/10/2008 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 08/10/2008 414.01 COR ONARY ARTERY STENOSIS MULTI-VESSEL 08/10/2008 300.00 anxiety 08/10/2008 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 08/10/2008 414.01 COR ONARY ARTERY STENOSIS MULTI-VESSEL 08/10/2008 LINDA DO, LUANNE [...] STENOSIS MULTI-VESSEL 08/10/2008 HERNAN CRUZ MD N 300 .00 anxiety 08/10/2008 HERNAN CRUZ MD N 305 .1 NICOTINE DEPENDENCE 08/10/2008 HERNAN CRUZ MD N 414 .01 CORONARY ARTERY STENOSIS MULTI-VESSEL 08/10/2008 LINDA DO, LUANNE K 300.00 anxiety 08/10/2008 LINDA DO, LUANNE K 305.1 NICOTINE DEPENDENCE 08/10/2008 LINDA DO, LUANNE K 414.01 CORONARY ARTERY STENOSIS MULTI-VESSEL 08/10/2008 LINDA DO, LUANNE K 300.00 anxiety 08/10/2008 LINDA DO, LUANNE K 305.1 NICOTINE DEPENDENCE 08/10/2008 LINDA DO, LUANNE K 414.01 CORONARY ARTERY STENOSIS MULTI-VESSEL 08/10/2008 WAYNE CADMIUM BURNER, COLLEEN R 300.00 anxiety 08/10/2008 WAYNE CADMIUM BURNER, COLLEEN R 305.1 NICOTINE DEPENDENCE 08/10/2008 WAYNE CADMIUM BURNER, COLLEEN R 414.01 CORONARY ARTERY STENOSIS MULTI-VESSEL [...] 414.01 CORONARY ARTERY STENOSIS MULTI-VESSEL 08/10/2008 ROSANA CADMIUM BURNER, COLLEEN R 300.00 anxiety 08/10/2008 ROSANA CADMIUM BURNER, COLLEEN R 305.1 NICOTINE DEPENDENCE 08/10/2008 ROSANA LINGN, COLLEEN R 414.01 CORONARY ARTERY STENOSIS MULTI-VESSEL 08/10/2008 SARA CADMIUM BURNER, ONEYDA A 300.00 anxiety 08/10/2008 SARA CADMIUM BURNER, ONEYDA A 30 5.1 NICOTINE DEPENDENCE 08/10/2008 SARA CADMIUM BURNER, ONEYDA A 414.01 CORONARY ARTERY STENOSIS MULTI-VESSEL 08/10/2008 FAIZAN IRVIN CHRISTA Vishal 300.00 ANXIETY 08/10/2008 CHRISTA GLORIA APRN T 30 5.1 NICOTINE DEPENDENCE 08/10/2008 CHRISTA GLORIA APRN T 414.01 CORONARY ARTERY STENOSIS MULTI-VESSEL 08/10/2008 CHRISTA GLORIA APRN T 300.00 ANXIETY 08/10/2008 CHRISTA GLORIA APRN T 30 5.1 NICOTINE DEPENDENCE 08/10/2008 CHRISTA GLORIA APRN T 414.01 CORONARY ARTERY STENOSIS MULTI-VESSEL 08/10/2008 [address]NE APRNRICIA R 300.00 ANXIETY 08/10/2008 [address]RI WAYNE APRNRICIA R 305.1 NICOTINE DEPENDENCE 08/10/2008 ROSANA IRVIN COLLEEN R 414.01 CORONARY ARTERY STENOSIS MULTI-VESSEL 08/10/2008 CHRISTA GLORIA APRN T 300.00 ANXIETY 08/10/2008 CHRISTA GLORIA APRN 30 5.1 NICOTINE DEPENDENCE 08/10/2008 CHRISTA GLORIA APRN T 414.01 CORONARY ARTERY STENOSIS MULTI-VESSEL 02/13/2009 780.79 FATIGUE 02/13/2009 786.05 Becky rtness Of Breath 02/13/2009 780.79 FATIGUE 02/13/2009 786.05 Becky rtness Of Breath 02/13/2009 LINDA DO, LUANNE K 780.79 FATIGUE 02/13/2009 LINDA DO, LUANNE K 786.05 Shortness Of Breath 02/13/2009 LINDA DO, LUANNE K 780.79 FATIGUE 02/13/2009 LINDA DO, LUANNE K 786.05 Shortness Of Breath 02/13/2009 780.79 FATIGUE 02/13/2009 786.05 Becky rtness Of Breath 02/13/2009 780.79 FATIGUE 02/13/2009 786.05 Becky rtness Of Breath 02/13/2009 780.79 FATIGUE 02/13/2009 786.05 Becky rtness Of Breath 02/13/2009 780.79 FATIGUE 02/13/2009 786.05 Becky rtness Of Breath 02/13/2009 780.79 FATIGUE 02/13/2009 786.05 Becky rtness Of Breath 02/13/2009 780.79 FATIGUE 02/13/2009 786.05 Becky rtness Of Breath 02/13/2009 LINDA DO, LUANNE K 780.79 FATIGUE 02/13/2009 LINDA DO, LUANNE K 786.05 Shortness Of Breath 02/13/2009 LINDA DO, LUANNE K 780.79 FATIGUE 02/13/2009 LINDA DO, LUANNE K 786.05 Shortness Of Breath 02/13/2009 LINDA DO, LUANNE K 780.79 FATIGUE 02/13/2009 LINDA DO, LUANNE K 786.05 Shortness Of Breath 02/13/2009 HERNAN CRUZ MD 780 .79 FATIGUE 02/13/2009 HERNAN CRUZ MD 786 .05 Shortness Of Breath 02/13/2009 LINDA DO, LUANNE K 780.79 FATIGUE 02/13/2009 LINDA DO, LUANNE K 786.05 Shortness Of Breath 02/13/2009 LINDA DO, LUANNE K 780.79 FATIGUE 02/13/2009 LINDA DO, LUANNE K 786.05 Shortness Of Breath 02/13/2009 [address]RI WAYNE APRNRICIA R 780.79 FATIGUE 02/13/2009 [address]NE APRNIA R 786.05 Shortness Of Breath 02/13/2009 LINDA [...] ONEYDA RUIZ APRN A 780.79 FATIGUE 02/13/2009 ONEYDA RUIZ APRN A 786.05 Shortness Of Breath 02/13/2009 CHRISTA GLORIA APRN 780.79 FATIGUE 02/13/2009 CHRISTA GLORIA APRN 786.05 Shortness Of Breath 02/13/2009 CHRISTA GLORIA APRN 780.79 FATIGUE 02/13/2009 CHRISTA GLORIA APRN 786.05 Shortness Of Breath 02/13/2009 [address]LEEN [address]NE APRN R 780.79 FATIGUE 02/13/2009 COLLEEN WAYNE APRN R 786.05 Shortness Of Breath 02/13/2009 CHRISTA GLORIA APRN T 780.79 FATIGUE 02/13/2009 CHRISTA GLORIA APRN 786.05 Shortness Of Breath 03/27/2009 466.0 Acut e Bronchitis 03/27/2009 466.0 Acut e Bronchitis 03/27/2009 LINDA DO, LUANNE K 466.0 Acute Bronchitis 03/27/2009 LINDA DO, LUANNE K 466.0 Acute Bronchitis 03/27/2009 466.0 Acut e Bronchitis 03/27/2009 466.0 Acut e Bronchitis 03/27/2009 466.0 Acut e Bronchitis 03/27/2009 466.0 Acut e Bronchitis 03/27/2009 466.0 Acut e Bronchitis 03/27/2009 466.0 Acut e Bronchitis 03/27/2009 LINDA DO, LUANNE K 466.0 Acute Bronchitis 03/27/2009 LINDA DO, LUANNE K 466.0 Acute Bronchitis 03/27/2009 LINDA DO, LUANNE K 466.0 Acute Bronchitis 03/27/2009 ANTHONY CRYSTAL, HERNAN Maed 466 .0 Acute Bronchitis 03/27/2009 LINDA DO, LUANNE K [...] WAYNE APRN R 466.0 Acute Bronchitis 03/27/2009 SARA IRVIN, ONEYDA A 46 6.0 Acute Bronchitis 03/27/2009 CHRISTA GLORIA APRN 46 6.0 Acute Bronchitis 03/27/2009 CHRISTA GLORIA APRN 46 6.0 Acute Bronchitis 03/27/2009 ROSANA LINGN, COLLEEN R 466.0 Acute Bronchitis 03/27/2009 FAIZAN CADMIUM BURNER, CHRISTA T 46 6.0 Acute Bronchitis 05/10/2009 625.8 [place] 05/10/2009 V72.31 Business Planning Manager Exam, Routine 05/10/2009 625.8 [place] 05/10/2009 V72.31 Business Planning Manager Exam, Routine 05/10/2009 LINDA DO LUANNE K 625.8 [place] 05/10/2009 LINDA DO, LUANNE K V72.31 Business Planning Manager Exam, Routine 05/10/2009 LINDA DO, LUANNE K 625.8 [place] 05/10/2009 LINDA DO, LUANNE K V72.31 Business Planning Manager Exam, Routine 05/10/2009 625.8 [place] 05/10/2009 V72.31 Business Planning Manager Exam, Routine 05/10/2009 625.8 [place] 05/10/2009 V72.31 Business Planning Manager Exam, Routine 05/10/2009 625.8 [place] 05/10/2009 V72.31 Business Planning Manager Exam, Routine 05/10/2009 625.8 [place] 05/10/2009 V72.31 Business Planning Manager Exam, Routine 05/10/2009 625.8 [place] 05/10/2009 V72.31 Business Planning Manager Exam, Routine 05/10/2009 625.8 [place] 05/10/2009 V72.31 Business Planning Manager Exam, Routine 05/10/2009 LINDA DO LUANNE K 625.8 [place] 05/10/2009 LINDA DO, LUANNE K V72.31 Business Planning Manager Exam, Routine 05/10/2009 LINDA DO, LUANNE K 625.8 [place] 05/10/2009 LINDA DO, LUANNE K V72.31 Business Planning Manager Exam, Routine 05/10/2009 LINDA DO, LUANNE K 625.8 [place] 05/10/2009 LINDA DO, LUANNE K V72.31 Business Planning Manager Exam, Routine 05/10/2009 ANTHONY CRYSTAL, HERNAN Mead 625 .8 [place] 05/10/2009 ANTHONY CRYSTAL, HERNAN Mead V72 .31 Business Planning Manager Exam, Routine 05/10/2009 LINDA DO, LUANNE K 625.8 [place] 05/10/2009 LINDA DO, LUANNE K V72.31 Business Planning Manager Exam, Routine 05/10/2009 LINDA DO, LUANNE K 625.8 [place] 05/10/2009 LINDA DO, LUANNE K V72.31 Business Planning Manager Exam, Routine 05/10/[address] APRNIA R 625.8 [place] 05/10/2009 PERRI WAYNE APRNRICIA R V72.31 Business Planning Manager Exam, Routine 05/10/2009 LINDA DO, LUANNE K 625.8 [place] 05/10/2009 LINDA DO, LUANNE K V72.31 Business Planning Manager Exam, Routine 05/10/2009 LINDA DO, LUANNE K 625.8 [place] 05/10/2009 LINDA DO, LUANNE K V72.31 Business Planning Manager Exam, Routine 05/10/2009 LINDA DO, LUANNE K 625.8 [place] 05/10/2009 LINDA DO, LUANNE K V72.31 Business Planning Manager Exam, Routine 05/10/2009 LINDA DO, LUANNE K 625.8 [place] 05/10/2009 LINDA DO, LUANNE K V72.31 Business Planning Manager Exam, Routine 05/10/2009 LINDA DO, LUANNE K 625.8 [place] 05/10/2009 LINDA DO, LUANNE K V72.31 Business Planning Manager Exam, Routine 05/10/2009 LINDA DO, LUANNE K 625.8 [place] 05/10/2009 LINDA DO, LUANNE K V72.31 Business Planning Manager Exam, Routine 05/10/2009 [address]NE APRNIA R 625.8 [place] 05/10/2009 [address]NE APRNIA R V72.31 Business Planning Manager Exam, Routine 05/10/2009 ONEYDA RUIZ APRN A 62 5.8 [place] 05/10/2009 ONEYDA RUIZ APRN V72.31 Business Planning Manager Exam, Routine 05/10/2009 CHRISTA GLORIA APRN 62 5.8 [place] 05/10/2009 CHRISTA GLORIA APRN V72.31 Business Planning Manager Exam, Routine 05/10/2009 CHRISTA GLORIA APRN 62 5.8 [place] 05/10/2009 CHRISTA GLORIA APRN V72.31 Business Planning Manager Exam, Routine 05/10/2009 OCLLEEN WAYNE APRN R 625.8 [place] 05/10/2009 COLLEEN WAYNE APRN R V72.31 Business Planning Manager Exam, Routine 05/10/2009 CHRISTA GLORIA APRN 62 5.8 [place] 05/10/2009 CHRISTA GLORIA APRN V72.31 Business Planning Manager Exam, Routine 06/08/2009 788.31 URG E INCONTINENCE OF URINE 06/08/2009 788.31 URG E INCONTINENCE OF URINE 06/08/2009 LINDA DO, LUANNE K 788.31 URGE INCONTINENCE OF URINE 06/08/2009 LINDA DO, LUANNE K 788.31 URGE INCONTINENCE OF URINE 06/08/2009 788.31 URG E INCONTINENCE OF URINE 06/08/2009 788.31 URG E INCONTINENCE OF URINE 06/08/2009 788.31 URG E INCONTINENCE OF URINE 06/08/2009 788.31 URG E INCONTINENCE OF URINE 06/08/2009 788.31 URG E INCONTINENCE OF URINE 06/08/2009 788.31 URG E INCONTINENCE OF URINE 06/08/2009 LINDA DO, LUANNE K 788.31 URGE INCONTINENCE OF URINE 06/08/2009 LINDA DO, LUANNE K 788.31 URGE INCONTINENCE OF URINE 06/08/2009 LINDA DO, LUANNE K 788.31 URGE INCONTINENCE OF URINE 06/08/2009 ANTHONY CRYSTAL, HERNAN Mead 788 .31 URGE INCONTINENCE OF URINE 06/08/2009 LINDA DO, [...] 724.5 BACKACHE 12/16/2009 ANTHONY CRYSTAL, HERNAN Mead 724 .5 BACKACHE 12/16/2009 LINDA DO, LUANNE K 724.5 BACKACHE 12/16/2009 LINDA DO, LUANNE K 724.5 BACKACHE 12/16/[address] APRN R 724.5 BACKACHE 12/16/2009 LINDA DO, LUANNE K 724.5 BACKACHE 12/16/2009 LINDA DO, LUANNE K 724.5 BACKACHE 12/16/2009 LINDA DO, LUANNE K 724.5 BACKACHE 12/16/2009 LINDA DO, LUANNE K 724.5 BACKACHE 12/16/2009 LINDA DO, LAUNNE K 724.5 BACKACHE 12/16/2009 LINDA DO, LUANNE K 724.5 BACKACHE 12/16/2009 [address]LE[address]NE APRN 724.5 BACKACHE 12/16/2009 SARA CADMIUM BURNER, ONEYDA A 72 4.5 BACKACHE 12/16/2009 FAIZAN CADMIUM BURNERCHRISTA Mead T 72 4.5 BACKACHE 12/16/2009 FAIZAN CADMIUM BURNERCHRISTA Mead T 72 4.5 BACKACHE 12/16/2009 ROSANA LINGAlyce COLLEEN R 724.5 BACKACHE 12/16/2009 CHRISTA GLORIA APRN T 72 4.5 BACKACHE 06/19/2010 719.40 fransisco nt pain, localized 06/19/2010 783.5 Exce ssive Thirst / Fluid Intake (polydypsia) 06/19/2010 788.42 Dipak quent, Full- bladder Emptying (polyuria) 06/19/2010 719.40 fransisco nt pain, localized 06/19/2010 783.5 Exce ssive Thirst / Fluid Intake (polydypsia) 06/19/2010 788.42 Dipak quent, Full- bladder Emptying (polyuria) 06/19/2010 LINDA DO LUANNE K 719.40 joint pain, localized 06/19/2010 LINDA DO, LUANNE K 783.5 Excessive Thirst / Fluid Intake (polydypsia) 06/19/2010 LINDA DO LUANNE K 788.42 Frequent, Full-bladder Emptying (polyuria) 06/19/2010 LINDA DO LUANNE K 719.40 joint pain, localized 06/19/2010 LINDA DO, LUANNE K 783.5 Excessive Thirst / Fluid Intake (polydypsia) 06/19/2010 LINDA DO LUANNE K 788.42 Frequent, Full-bladder Emptying (polyuria) 06/19/2010 719.40 fransisco nt pain, localized 06/19/2010 783.5 Exce ssive Thirst / Fluid Intake (polydypsia) 06/19/2010 788.42 Dipak quent, Full- bladder Emptying (polyuria) 06/19/2010 719.40 fransisco nt pain, localized 06/19/2010 783.5 Exce ssive Thirst / Fluid Intake (polydypsia) 06/19/2010 788.42 Dipak quent, Full- bladder Emptying (polyuria) 06/19/2010 719.40 fransisco nt pain, localized 06/19/2010 783.5 Exce ssive Thirst / Fluid Intake (polydypsia) 06/19/2010 788.42 Dipak quent, Full- bladder Emptying (polyuria) 06/19/2010 719.40 fransisco nt pain, localized 06/19/2010 783.5 Exce ssive Thirst / Fluid Intake (polydypsia) 06/19/2010 788.42 Dipak quent, Full- bladder Emptying (polyuria) 06/19/2010 719.40 fransisco nt pain, localized 06/19/2010 783.5 Exce ssive Thirst / Fluid Intake (polydypsia) 06/19/2010 788.42 Dipak quent, Full- bladder Emptying (polyuria) 06/19/2010 719.40 fransisco nt pain, localized 06/19/2010 783.5 Exce ssive Thirst / Fluid Intake (polydypsia) 06/19/2010 788.42 Dipak quent, Full- bladder Emptying (polyuria) 06/19/2010 LINDA DO, [...] Full-bladder Emptying (polyuria) 06/19/2010 HERNAN CRUZ MD 719 .40 joint pain, localized 06/19/2010 HERNAN CRUZ MD 783 .5 Excessive Thirst / Fluid Intake (polydypsia) 06/19/2010 HERNAN CRUZ MD 788 .42 Frequent, Full-bladder Emptying (polyuria) 06/19/2010 LINDA DO, [...] K 788.42 Frequent, Full-bladder Emptying (polyuria) 06/19/2010 WAYNE CADMIUM BURNER, COLLEEN R 719.40 joint pain, localized 06/19/2010 WAYNE CADMIUM BURNER, COLLEEN R 783.5 Excessive Thirst / Fluid Intake (polydypsia) 06/19/2010 WAYNE CADMIUM BURNER, COLLEEN R 788.42 Frequent, Full-bladder Emptying (polyuria) [...] K 788.42 Frequent, Full-bladder Emptying (polyuria) 06/19/2010 MARCELO WAYNE APRNIA R 719.40 joint pain, localized 06/19/2010 COLLEEN WAYNE APRN R 783.5 Excessive Thirst / Fluid Intake (polydypsia) 06/19/2010 COLLEEN WAYNE APRN R 788.42 Frequent, Full-bladder Emptying (polyuria) 06/19/2010 ONEYDA RUIZ APRN A 719.40 joint pain, localized 06/19/2010 ONEYDA RUIZ APRN A 78 3.5 Excessive Thirst / Fluid Intake (polydypsia) 06/19/2010 ONEYDA RUIZ APRN A 788.42 Frequent, Full-bladder Emptying (polyuria) 06/19/2010 CHRISTA GLORIA APRN 719.40 joint pain, localized 06/19/2010 CHRISTA GLORIA APRN 78 3.5 Excessive Thirst / Fluid Intake (polydypsia) 06/19/2010 CHRISTA GLORIA APRN 788.42 Frequent, Full-bladder Emptying (polyuria) 06/19/2010 CHRISTA GLORIA APRN 719.40 joint pain, localized 06/19/2010 CHRISTA GLORIA APRN 78 3.5 Excessive Thirst / Fluid Intake (polydypsia) 06/19/2010 CHRISTA GLORIA APRN 788.42 Frequent, Full-bladder Emptying (polyuria) 06/19/2010 COLLEEN WAYNE APRN R 719.40 joint pain, localized 06/19/2010 COLLEEN WAYNE APRN R 783.5 Excessive Thirst / Fluid Intake (polydypsia) 06/19/2010 COLLEEN WAYNE APRN R 788.42 Frequent, Full-bladder Emptying (polyuria) 06/19/2010 CHRISTA GLORIA APRN 719.40 joint pain, localized 06/19/2010 CHRISTA GLORIA APRN T 78 3.5 Excessive Thirst / Fluid Intake (polydypsia) 06/19/2010 CHRISTA GLORIA APRN 788.42 Frequent, Full-bladder Emptying (polyuria) 09/25/2010 272.4 HYPE RLIPIDEMIA 09/25/2010 272.4 HYPE RLIPIDEMIA 09/25/2010 LINDA DO, LUANNE K 272.4 HYPERLIPIDEMIA 09/25/2010 LINDA DO, LUANNE K 272.4 HYPERLIPIDEMIA 09/25/2010 272.4 HYPE RLIPIDEMIA 09/25/2010 272.4 HYPE RLIPIDEMIA 09/25/2010 272.4 HYPE RLIPIDEMIA 09/25/2010 272.4 HYPE RLIPIDEMIA 09/25/2010 272.4 HYPE RLIPIDEMIA 09/25/2010 272.4 HYPE RLIPIDEMIA 09/25/2010 LINDA DO, LUANNE K 272.4 HYPERLIPIDEMIA 09/25/2010 LINDA DO, LUANNE K 272.4 HYPERLIPIDEMIA 09/25/2010 LINDA DO, LUANNE K 272.4 HYPERLIPIDEMIA 09/25/2010 ANTHONY CRYSTAL, HERNAN Mead 272 .4 HYPERLIPIDEMIA 09/25/2010 LINDA DO, LUANNE K 272.4 HYPERLIPIDEMIA 09/25/2010 LINDA DO, LUANNE K 272.4 HYPERLIPIDEMIA 09/25/[address] APRNRICIA R 272.4 HYPERLIPIDEMIA 09/25/2010 LINDA DO, LUANNE K 272.4 HYPERLIPIDEMIA 09/25/2010 LINDA DO, LUANNE K 272.4 HYPERLIPIDEMIA 09/25/2010 LINDA DO, LUANNE K 272.4 HYPERLIPIDEMIA 09/25/2010 LINDA DO, LUANNE K 272.4 HYPERLIPIDEMIA 09/25/2010 LINDA DO, LUANNE K 272.4 HYPERLIPIDEMIA 09/25/2010 LINDA DO, LUANNE K 272.4 HYPERLIPIDEMIA 09/25/[address]NE APRNRICIA R 272.4 HYPERLIPIDEMIA 09/25/2010 ONEYDA RUIZ APRN A 27 2.4 HYPERLIPIDEMIA 09/25/2010 CHRISTA GLORIA APRN 27 2.4 HYPERLIPIDEMIA 09/25/2010 CHRISTA GLORIA APRN 27 2.4 HYPERLIPIDEMIA 09/25/2010 ROSANA LINGN, COLLEEN R 272.4 HYPERLIPIDEMIA 09/25/2010 CHRISTA GLORIA APRN T 27 2.4 HYPERLIPIDEMIA 10/15/2010 710.0 Syst emic Lupus Erythematosus 10/15/2010 710.0 Syst emic Lupus Erythematosus 10/15/2010 LINDA DO, LUANNE K 710.0 Systemic Lupus Erythematosus 10/15/2010 LINDA DO, LUANNE K 710.0 Systemic Lupus Erythematosus 10/15/2010 710.0 Syst emic Lupus Erythematosus 10/15/2010 710.0 Syst emic Lupus Erythematosus 10/15/2010 710.0 Syst emic Lupus Erythematosus 10/15/2010 710.0 Syst emic Lupus Erythematosus 10/15/2010 710.0 Syst emic Lupus Erythematosus 10/15/2010 710.0 Syst emic Lupus Erythematosus 10/15/2010 LINDA DO, LUANNE K 710.0 Systemic Lupus Erythematosus 10/15/2010 LINDA DO, LUANNE K 710.0 Systemic Lupus Erythematosus 10/15/2010 LINDA DO, LUANNE K 710.0 Systemic Lupus Erythematosus 10/15/2010 ANTHONY CRYSTAL, HERNAN Mead 710 .0 Systemic Lupus Erythematosus 10/15/2010 LINDA DO, LUANNE K 710.0 Systemic Lupus Erythematosus 10/15/2010 LINDA DO, LUANNE K 710.0 Systemic Lupus Erythematosus 10/15/2010 ROSANA LINGNPERRICOLLEEN R 710.0 Systemic Lupus Erythematosus 10/15/2010 LINDA DO, LUANNE K 710.0 Systemic Lupus Erythematosus 10/15/2010 LINDA DO, LUANNE K 710.0 Systemic Lupus Erythematosus 10/15/2010 LINDA DO, LUANNE K 710.0 Systemic Lupus Erythematosus 10/15/2010 LINDA DO, LUANNE K 710.0 Systemic Lupus Erythematosus 10/15/2010 LINDA DO, LUANNE K 710.0 Systemic Lupus Erythematosus 10/15/2010 LINDA DO, LUANNE K 710.0 Systemic Lupus Erythematosus 10/15/[address]NE APRNRICIA R 710.0 Systemic Lupus Erythematosus 10/15/2010 ONEDYA RUIZ APRN A 71 0.0 Systemic Lupus Erythematosus 10/15/2010 CHRISTA GLORIA APRN T 71 0.0 Systemic Lupus Erythematosus 10/15/2010 CHRISTA GLORIA APRN T 71 0.0 Systemic Lupus Erythematosus 10/15/2010 COLLEEN WAYNE APRN R 710.0 Systemic Lupus Erythematosus 10/15/2010 CHRISTA GLORIA APRN T 71 0.0 Systemic Lupus Erythematosus 02/18/2011 268.9 GRETEL MIN D DEFICIENCY 02/18/2011 710.9 DISO RDERS OF CONNECTIVE TISSUE 02/18/2011 V58.69 nadira ing high-risk medication 02/18/2011 268.9 GRETEL MIN D DEFICIENCY 02/18/2011 710.9 DISO RDERS OF CONNECTIVE TISSUE 02/18/2011 V58.69 nadira ing high-risk medication 02/18/2011 LINDA DO, LUANNE K 268.9 VITAMIN D DEFICIENCY 02/18/2011 LINDA DO, LUANNE K 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 02/18/2011 LINDA DO, LUANNE K V58.69 taking high-risk medication 02/18/2011 LINDA DO, LUANNE K 268.9 VITAMIN D DEFICIENCY 02/18/2011 LINDA DO, LUANNE K 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 02/18/2011 LINDA DO, LUANNE K V58.69 taking high-risk medication 02/18/2011 268.9 GRETEL MIN D DEFICIENCY 02/18/2011 710.9 DISO RDERS OF CONNECTIVE TISSUE 02/18/2011 V58.69 nadira ing high-risk medication 02/18/2011 268.9 GRETEL MIN D DEFICIENCY 02/18/2011 710.9 DISO RDERS OF CONNECTIVE TISSUE 02/18/2011 V58.69 nadira ing high-risk medication 02/18/2011 268.9 GRETEL MIN D DEFICIENCY 02/18/2011 710.9 DISO RDERS OF CONNECTIVE TISSUE 02/18/2011 V58.69 nadira ing high-risk medication 02/18/2011 268.9 GRETEL MIN D DEFICIENCY 02/18/2011 710.9 DISO RDERS OF CONNECTIVE TISSUE 02/18/2011 V58.69 nadira ing high-risk medication 02/18/2011 268.9 GRETEL MIN D DEFICIENCY 02/18/2011 710.9 DISO RDERS OF CONNECTIVE TISSUE 02/18/2011 V58.69 nadira ing high-risk medication 02/18/2011 268.9 GRETEL MIN D DEFICIENCY 02/18/2011 710.9 DISO RDERS OF CONNECTIVE TISSUE 02/18/2011 V58.69 nadira ing high-risk medication 02/18/2011 LINDA DO, LUANNE K 268.9 VITAMIN D DEFICIENCY 02/18/2011 LINDA DO LUANNE K 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 [...] taking high-risk medication 02/18/2011 HERNAN CRUZ MD N 268 .9 VITAMIN D DEFICIENCY 02/18/2011 HERNAN CRUZ MD N 710 .9 DISORDERS OF CONNECTIVE TISSUE 02/18/2011 HERNAN CRUZ MD N V58 .69 taking high-risk medication 02/18/2011 LINDA DO, LUANNE K 268.9 VITAMIN D DEFICIENCY 02/18/2011 LINDA DO, LUANNE K 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 02/18/2011 LINDA DO, LUANNE K V58.69 taking high-risk medication 02/18/2011 LINDA DO, LUANNE K 268.9 VITAMIN D DEFICIENCY 02/18/2011 LINDA DO, LUANNE K 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 02/18/2011 LINDA DO, LUANNE K V58.69 taking high-risk medication 02/18/2011 MARCELO WAYNE APRNIA R 268.9 VITAMIN D DEFICIENCY 02/18/2011 PERRI WAYNE APRNRICIA R 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 02/18/2011 PERRI WAYNE APRNRICIA R V58.69 taking high-risk medication 02/18/2011 LINDA [...] APRN R V58.69 taking high-risk medication 02/18/2011 BAM RUIZ APRNIDI A 26 8.9 VITAMIN D DEFICIENCY 02/18/2011 SARAJAVIER IRVIN ONEYDA A 71 0.9 DISORDERS OF CONNECTIVE TISSUE 02/18/2011 SARAAlyce IRVIN ONEYDA A V58.69 taking high-risk medication 02/18/2011 CHRISTA GLORIA APRN T 26 8.9 VITAMIN D DEFICIENCY 02/18/2011 CHRISTA GLORIA APRN T 71 0.9 DISORDERS OF CONNECTIVE TISSUE 02/18/2011 CHRISTA GLORIA APRN T V58.69 taking high-risk medication 02/18/2011 CHRISTA GLORIA APRN T 26 8.9 VITAMIN D DEFICIENCY 02/18/2011 CHRISTA GLORIA APRN T 71 0.9 DISORDERS OF CONNECTIVE TISSUE 02/18/2011 CHRISTA GLORIA APRN T V58.69 taking high-risk medication 02/18/2011 MARCELO WAYNE APRNIA R 268.9 VITAMIN D DEFICIENCY 02/18/2011 COLLEEN WAYNE APRN R 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 02/18/2011 MARCELO WAYNE APRNIA R V58.69 taking high-risk medication 02/18/2011 CHRISTA GLORIA APRN T 26 8.9 VITAMIN D DEFICIENCY 02/18/2011 FAIZAN LINGAlyce CHRISTA Rodgers 71 0.9 DISORDERS OF CONNECTIVE TISSUE 02/18/2011 FAIZAN LINGCHRISTA Mead Vishal V58.69 taking high-risk medication 09/10/2011 V76.10 ASTRID AST CANCER SCREENING 09/10/2011 V76.47 VAG INAL PAP SMEAR SCREENING 09/10/2011 V76.10 ASTRID AST CANCER SCREENING 09/10/2011 V76.47 VAG INAL PAP SMEAR SCREENING 09/10/2011 LUANNE LINDA DO V76.10 BREAST CANCER SCREENING 09/10/2011 LUANNE LINDA DO V76.47 VAGINAL PAP SMEAR SCREENING 09/10/2011 LUANNE LINDA DO V76.10 BREAST CANCER SCREENING 09/10/2011 LUANNE LINDA DO V76.47 VAGINAL PAP SMEAR SCREENING 09/10/2011 V76.10 ASTRID AST CANCER SCREENING 09/10/2011 V76.47 VAG INAL PAP SMEAR SCREENING 09/10/2011 V76.10 ASTRID AST CANCER SCREENING 09/10/2011 V76.47 VAG INAL PAP SMEAR SCREENING 09/10/2011 V76.10 ASTRID AST CANCER SCREENING 09/10/2011 V76.47 VAG INAL PAP SMEAR SCREENING 09/10/2011 V76.10 ASTRID AST CANCER SCREENING 09/10/2011 V76.47 VAG INAL PAP SMEAR SCREENING 09/10/2011 V76.10 ASTRID AST CANCER SCREENING 09/10/2011 V76.47 VAG INAL PAP SMEAR SCREENING 09/10/2011 V76.10 ASTRID AST CANCER SCREENING 09/10/2011 V76.47 VAG INAL PAP SMEAR SCREENING 09/10/2011 LUANNE LINDA DO V76.10 BREAST CANCER SCREENING 09/10/2011 LUANNE LINDA DO V76.47 VAGINAL PAP SMEAR SCREENING 09/10/2011 LUANNE LINDA DO V76.10 BREAST CANCER SCREENING 09/10/2011 LUANNE LINDA DO V76.47 VAGINAL PAP SMEAR SCREENING 09/10/2011 LUANNE LINDA DO V76.10 BREAST CANCER SCREENING 09/10/2011 LUANNE LINDA DO V76.47 VAGINAL PAP SMEAR SCREENING 09/10/2011 HERNAN CRUZ MD V76 .10 BREAST CANCER SCREENING 09/10/2011 HERNAN CRUZ MD V76 .47 VAGINAL PAP SMEAR SCREENING 09/10/2011 LINDA DO, LUANNE K V76.10 BREAST CANCER SCREENING 09/10/2011 LINDA DO, LUANNE K V76.47 VAGINAL PAP SMEAR SCREENING 09/10/2011 LINDA DO, LUANNE K V76.10 BREAST CANCER SCREENING 09/10/2011 LINDA DO, LUANNE K V76.47 VAGINAL PAP SMEAR SCREENING 09/10/2011 MARCELO WAYNE APRNIA R V76.10 BREAST CANCER SCREENING 09/10/2011 COLLEEN [...] APRN R V76.10 BREAST CANCER SCREENING 09/10/2011 MARCELO WAYNE APRNIA R V76.47 VAGINAL PAP SMEAR SCREENING 09/10/2011 ONEYDA RUIZ APRN A V76.10 BREAST CANCER SCREENING 09/10/2011 ONEYDA RUIZ APRN A V76.47 VAGINAL PAP SMEAR SCREENING 09/10/2011 CHRISTA GLORIA APRN T V76.10 BREAST CANCER SCREENING 09/10/2011 CHRISTA GLORIA APRN V76.47 VAGINAL PAP SMEAR SCREENING 09/10/2011 CHRISTA GLORIA APRN T V76.10 BREAST CANCER SCREENING 09/10/2011 CHRISTA GLORIA APRN V76.47 VAGINAL PAP SMEAR SCREENING 09/10/2011 COLLEEN WAYNE APRN V76.10 BREAST CANCER SCREENING 09/10/2011 COLLEEN WAYNE APRN V76.47 VAGINAL PAP SMEAR SCREENING 09/10/2011 CHRISTA GLORIA APRN V76.10 BREAST CANCER SCREENING 09/10/2011 CHRISTA GLORIA APRN V76.47 VAGINAL PAP SMEAR SCREENING 11/11/2011 070.54 HEP ATITIS C CHRONIC 11/11/2011 702.19 VISHAL ORRHEIC KERATOSIS 11/11/2011 070.54 HEP ATITIS C CHRONIC 11/11/2011 702.19 VISHAL ORRHEIC KERATOSIS 11/11/2011 MADDI PORTILLO LUANNE K 070.54 HEPATITIS C CHRONIC 11/11/2011 LINDA DO LUANNE K 702.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 11/11/2011 LINDA DO LUANNE K 070.54 HEPATITIS C CHRONIC 11/11/2011 LINDA DO LUANNE K 702.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 11/11/2011 070.54 HEP ATITIS C CHRONIC 11/11/2011 702.19 VISHAL ORRHEIC KERATOSIS 11/11/2011 070.54 HEP ATITIS C CHRONIC 11/11/2011 702.19 VISHAL ORRHEIC KERATOSIS 11/11/2011 070.54 HEP ATITIS C CHRONIC 11/11/2011 702.19 VISHAL ORRHEIC KERATOSIS 11/11/2011 070.54 HEP ATITIS C CHRONIC 11/11/2011 702.19 VISHAL ORRHEIC KERATOSIS 11/11/2011 070.54 HEP ATITIS C CHRONIC 11/11/2011 702.19 VISHAL ORRHEIC KERATOSIS 11/11/2011 070.54 HEP ATITIS C CHRONIC 11/11/2011 702.19 VISHAL ORRHEIC KERATOSIS 11/11/2011 LINDA DO LUANNE K 070.54 HEPATITIS C CHRONIC 11/11/2011 LINDA DO LUANNE K 702.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 11/11/2011 LINDA DO LUANNE K 070.54 HEPATITIS C CHRONIC 11/11/2011 LINDA DO LUANNE K 702.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 11/11/2011 LINDA DO LUANNE K 070.54 HEPATITIS C CHRONIC 11/11/2011 LINDA DO LUANNE K 702.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 11/11/2011 ANTHONY CRYSTAL, HERNAN N 070 .54 HEPATITIS C CHRONIC 11/11/2011 HERNAN CRUZ MD N 702 .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 11/11/2011 LINDA DO, LUANNE K 070.54 HEPATITIS C CHRONIC 11/11/2011 LINDA DO, LUANNE K 702.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 11/11/2011 LINDA DO, LUANNE K 070.54 HEPATITIS C CHRONIC 11/11/2011 LINDA DO, LUANNE K 702.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 11/11/2011 COLLEEN WAYNE APRN R 070.54 HEPATITIS C CHRONIC 11/11/2011 COLLEEN WAYNE APRN R 702.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 11/11/2011 LINDA DO, [...] DO, LUANNE K 702.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 11/11/2011 COLLEEN WAYNE APRN R 070.54 HEPATITIS C CHRONIC 11/11/2011 COLLEEN WAYNE APRN R 702.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 11/11/2011 ONEYDA RUIZ APRN 070.54 HEPATITIS C CHRONIC 11/11/2011 ONEYDA RUIZ APRN 702.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 11/11/2011 CHRISTA GLORIA APRN 070.54 HEPATITIS C CHRONIC 11/11/2011 CHRISTA GLORIA APRN T 702.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 11/11/2011 CHRISTA GLORIA APRN T 070.54 HEPATITIS C CHRONIC 11/11/2011 CHRISTA GLORIA APRN T 702.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 11/11/2011 COLLEEN WAYNE APRN R 070.54 HEPATITIS C CHRONIC 11/11/2011 COLLEEN WAYNE APRN R 702.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 11/11/2011 CHRISTA GLORIA APRN T 070.54 HEPATITIS C CHRONIC 11/11/2011 CHRISTA GLORIA APRN 702.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 01/17/2012 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 01/17/2012 784.91 POS TNASAL DRIP 01/17/2012 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 01/17/2012 784.91 POS TNASAL DRIP 01/17/2012 LUANNE LINDA DO 478.19 Other Diseases Of Nasal Cavity And Sinuses 01/17/2012 LUANNE LINDA DO 784.91 Postnasal Drip 01/17/2012 LUANNE LINDA DO 478.19 Other Diseases Of Nasal Cavity And Sinuses 01/17/2012 LUANNE LINDA DO 784.91 Postnasal Drip 01/17/2012 478.19 Oth er Diseases Of Nasal Cavity And Sinuses 01/17/2012 784.91 Pos tnasal Drip 01/17/2012 478.19 Oth er Diseases Of Nasal Cavity And Sinuses 01/17/2012 784.91 Pos tnasal Drip 01/17/2012 478.19 Oth er Diseases Of Nasal Cavity And Sinuses 01/17/2012 784.91 Pos tnasal Drip 01/17/2012 478.19 Oth er Diseases Of Nasal Cavity And Sinuses 01/17/2012 784.91 Pos tnasal Drip 01/17/2012 478.19 Oth er Diseases Of Nasal Cavity And Sinuses 01/17/2012 784.91 Pos tnasal Drip 01/17/2012 478.19 Oth er Diseases Of Nasal Cavity And Sinuses 01/17/2012 784.91 Pos tnasal Drip 01/17/2012 LUANNE LINDA DO 478.19 Other Diseases Of Nasal Cavity And Sinuses 01/17/2012 LINDA DO, LUANNE K 784.91 Postnasal Drip 01/17/2012 LINDA DO LUANNE K 478.19 OTHER DISEASES OF NASAL CAVITY AND SINUSES 01/17/2012 LINDA DO, LUANNE K 784.91 POSTNASAL DRIP 01/17/2012 LINDA DO LUANNE K 478.19 Other Diseases Of Nasal Cavity And Sinuses 01/17/2012 LINDA DO LUANNE K 784.91 Postnasal Drip 01/17/2012 HERNAN CRUZ MD N 478 .19 Other Diseases Of Nasal Cavity And Sinuses 01/17/2012 HERNAN CRUZ MD N 784 .91 Postnasal Drip 01/17/2012 LINDA DO LUANNE K 478.19 Other Diseases Of Nasal Cavity And Sinuses 01/17/2012 LINDA DO, LUANNE K 784.91 Postnasal Drip 01/17/2012 LINDA DO LUANNE K 478.19 Other Diseases Of Nasal Cavity And Sinuses 01/17/2012 LINDA DO, LUANNE K 784.91 Postnasal Drip 01/17/2012 PERRI WAYNE APRNRICIA R 478.19 Other Diseases Of Nasal Cavity And Sinuses 01/17/2012 PERRI WAYNE APRNRICIA R 784.91 Postnasal Drip 01/17/2012 LINDA DO LUANNE K 478.19 Other Diseases Of Nasal Cavity And Sinuses 01/17/2012 LINDA DO, LUANNE K 784.91 Postnasal Drip 01/17/2012 LINDA DO LUANNE K 478.19 Other Diseases Of Nasal Cavity And Sinuses 01/17/2012 LINDA DO, LUANNE K 784.91 Postnasal Drip 01/17/2012 LINDA DO LUANNE K 478.19 Other Diseases Of Nasal Cavity And Sinuses 01/17/2012 LINDA DO, LUANNE K 784.91 Postnasal Drip 01/17/2012 LINDA DO LUANNE K 478.19 Other Diseases Of Nasal Cavity And Sinuses 01/17/2012 LINDA DO, LUANNE K 784.91 Postnasal Drip 01/17/2012 LINDA DO LUANNE K 478.19 Other Diseases Of Nasal Cavity And Sinuses 01/17/2012 LINDA DO, LUANNE K 784.91 Postnasal Drip 01/17/2012 LINDA DO LUANNE K 478.19 Other Diseases Of Nasal Cavity And Sinuses 01/17/2012 LINDA DO LUANNE K 784.91 Postnasal Drip 01/17/2012 COLLEEN WAYNE APRN R 478.19 Other Diseases Of Nasal Cavity And Sinuses 01/17/2012 COLLEEN WAYNE APRN R 784.91 Postnasal Drip 01/17/2012 ONEYDA RUIZ APRN A 478.19 Other Diseases Of Nasal Cavity And Sinuses 01/17/2012 ONEYDA RUIZ APRN A 784.91 Postnasal Drip 01/17/2012 CHRISTA GLORIA APRN T 478.19 Other Diseases Of Nasal Cavity And Sinuses 01/17/2012 CHRISTA GLORIA APRN T 784.91 Postnasal Drip 01/17/2012 CHRISTA GLORIA APRN T 478.19 Other Diseases Of Nasal Cavity And Sinuses 01/17/2012 CHRISTA GLORIA APRN T 784.91 Postnasal Drip 01/17/2012 COLLEEN WAYNE APRN R 478.19 Other Diseases Of Nasal Cavity And Sinuses 01/17/2012 COLLEEN WAYNE APRN R 784.91 Postnasal Drip 01/17/2012 CHRISTA GLORIA APRN T 478.19 Other Diseases Of Nasal Cavity And Sinuses 01/17/2012 CHRISTA GLORIA APRN T 784.91 Postnasal Drip 02/24/2012 Ot 786.59 04/01/2012 786.2 COUGH 04/01/2012 LINDA DO, LUANNE K 786.2 Cough 04/01/2012 LINDA DO, LUANNE K 786.2 Cough 04/01/2012 786.2 Cough 04/01/2012 786.2 Cough 04/01/2012 786.2 Cough 04/01/2012 786.2 Cough 04/01/2012 786.2 Cough 04/01/2012 786.2 Cough 04/01/2012 LINDA DO, LUANNE K 786.2 Cough 04/01/2012 LINDA DO, LUANNE K 786.2 Cough 04/01/2012 HERNAN CRUZ MD 786 .2 Cough 04/01/2012 LINDA DO, LUANNE K 786.2 Cough 04/01/2012 LINDA DO, LUANNE K 786.2 Cough 04/01/2012 PERRI WAYNE APRNRICIA R 786.2 Cough 04/01/2012 LINDA DO, LUANNE K 786.2 Cough 04/01/2012 LINDA DO, LUANNE K 786.2 Cough 04/01/2012 LINDA DO, LUANNE K 786.2 Cough 04/01/2012 LINDA DO, LUANNE K 786.2 Cough 04/01/2012 LINDA DO, LUANNE K 786.2 Cough 04/01/2012 LINDA DO, LUANNE K 786.2 Cough 04/01/2012 WAYNE CADMIUM BURNER, COLLEEN R 786.2 Cough 04/01/2012 SARA CADMIUM BURNER, ONEYDA A 78 6.2 Cough 04/01/2012 FAIZAN CADMIUM BURNER, CHRISTA T 78 6.2 Cough 04/01/2012 FAIZAN CADMIUM BURNER, CHRISTA T 78 6.2 Cough 04/01/2012 WAYNE CADMIUM BURNER, COLLEEN R 786.2 Cough 04/01/2012 FAIZAN CADMIUM BURNER, CHRISTA T 78 6.2 Cough 04/13/2012 LINDA DO, LUANNE K V65.42 COUNSELING - SMOKING CESSATION 04/13/2012 LINDA DO, LUANNE K V65.42 COUNSELING - SMOKING CESSATION 04/13/2012 V65.42 COU NSELING - SMOKING CESSATION 04/13/2012 V65.42 COU NSELING - SMOKING CESSATION 04/13/2012 V65.42 COU NSELING - SMOKING CESSATION 04/13/2012 V65.42 COU NSELING - SMOKING CESSATION 04/13/2012 V65.42 COU NSELING - SMOKING CESSATION 04/13/2012 V65.42 COU NSELING - SMOKING CESSATION 04/13/2012 LINDA DO, LUANNE K V65.42 COUNSELING - SMOKING CESSATION 04/13/2012 LINDA DO, LUANNE K V65.42 COUNSELING - SMOKING CESSATION 04/13/2012 ANTHONY CRYSTAL, HERNAN Mead V65 .42 COUNSELING - SMOKING CESSATION 04/13/2012 LINDA DO, [...] - SMOKING CESSATION 04/13/2012 ONEYDA RUIZ APRN A V65.42 COUNSELING - SMOKING CESSATION 04/13/2012 CHRISTA GLORIA APRN V65.42 COUNSELING - SMOKING CESSATION 04/13/2012 CHRISTA GLORIA APRN V65.42 COUNSELING - SMOKING CESSATION 04/13/2012 COLLEEN WAYNE APRN R V65.42 COUNSELING - SMOKING CESSATION 04/13/2012 CHRISTA GLORIA APRN V65.42 COUNSELING - SMOKING CESSATION 05/13/2012 LINDA DO, LUANNE K 593.9 RENAL INSUFFICIENCY 05/13/2012 593.9 MARQUITA L INSUFFICIENCY 05/13/2012 593.9 MARQUITA L INSUFFICIENCY 05/13/2012 593.9 MARQUITA L INSUFFICIENCY 05/13/2012 593.9 MARQUITA L INSUFFICIENCY 05/13/2012 593.9 MARQUITA L INSUFFICIENCY 05/13/2012 593.9 MARQUITA L INSUFFICIENCY 05/13/2012 LINDA DO, LUANNE K 593.9 RENAL INSUFFICIENCY 05/13/2012 LINDA DO, LUANNE K 593.9 RENAL INSUFFICIENCY 05/13/2012 ANTHONY CRYSTAL, HERNAN Mead 593 .9 RENAL INSUFFICIENCY 05/13/2012 LINDA DO, LUANNE K [...] RENAL INSUFFICIENCY 05/13/2012 ONEYDA RUIZ APRN A 59 3.9 RENAL INSUFFICIENCY 05/13/2012 CHRISTA GLORIA APRN 59 3.9 RENAL INSUFFICIENCY 05/13/2012 CHRISTA GLORIA APRN 59 3.9 RENAL INSUFFICIENCY 05/13/2012 COLLEEN WAYNE APRN R 593.9 RENAL INSUFFICIENCY 05/13/2012 CHRISTA GLORIA APRN 59 3.9 RENAL INSUFFICIENCY 07/07/2012 724.3 SCIATICA 07/07/2012 724.3 SCIATICA 07/07/2012 724.3 SCIATICA 07/07/2012 724.3 SCIATICA 07/07/2012 724.3 SCIATICA 07/07/2012 724.3 SCIATICA 07/07/2012 LINDA DO, LUANNE K 724.3 SCIATICA 07/07/2012 LINDA DO, LUANNE K 724.3 SCIATICA 07/07/2012 ANTHONY CRYSTAL, HERNAN Mead 724 .3 SCIATICA 07/07/2012 LINDA DO, LUANNE K 724.3 [...] COLLEEN WAYNE APRN R 724.3 SCIATICA 07/07/2012 SARAONEYDA HERRERA APRN A 72 4.3 SCIATICA 07/07/2012 CHRISTA GLORIA APRN 72 4.3 SCIATICA 07/07/2012 CHRISTA GLORIA APRN 72 4.3 SCIATICA 07/07/2012 COLLEEN WAYNE APRN R 724.3 SCIATICA 07/07/2012 CHRISTA GLORIA APRN 72 4.3 SCIATICA 09/21/2012 599.70 HEM ATURIA 09/21/2012 599.70 HEM ATURIA 09/21/2012 599.70 HEM ATURIA 09/21/2012 LINDA DO, LUANNE K 599.70 HEMATURIA 09/21/2012 LINDA DO, LUANNE K 599.70 HEMATURIA 09/21/2012 HERNAN CRUZ MD 599 .70 HEMATURIA 09/21/2012 LINDA DO, LUANNE K 599.70 [...] R 599.70 HEMATURIA 09/21/2012 SARAONEYDA HERRERA APRN A 599.70 HEMATURIA 09/21/2012 CHRISTA GLORIA APRN T 599.70 HEMATURIA 09/21/2012 CHRISTA GLORIA APRN 599.70 HEMATURIA 09/21/2012 COLLEEN WAYNE APRN R 599.70 HEMATURIA 09/21/2012 CHRISTA GLORIA APRN 599.70 HEMATURIA 10/19/2012 787.60 FUL L INCONTINENCE OF FECES 10/19/2012 V65.49 OTH ER SPECIFIED COUNSELING 10/19/2012 V73.81 HPV SCREENING 10/19/2012 V76.51 COL ON CANCER SCREENING 10/19/2012 787.60 FUL L INCONTINENCE OF FECES 10/19/2012 V65.49 OTH ER SPECIFIED COUNSELING 10/19/2012 V73.81 HPV SCREENING 10/19/2012 V76.51 COL ON CANCER SCREENING 10/19/2012 LINDA DO, LUANNE K 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 10/19/2012 LINDA DO LUANNE K V65.49 OTHER SPECIFIED COUNSELING 10/19/2012 LINDA DO LUANEN K V73.81 HPV SCREENING 10/19/2012 LINDA DO, LUANNE K V76.51 COLON CANCER SCREENING 10/19/2012 LINDA DO, LUANNE K 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 10/19/2012 LINDA DO LUANNE K V65.49 OTHER SPECIFIED COUNSELING 10/19/2012 LINDA DO, LUANNE K V73.81 HPV SCREENING 10/19/2012 LINDA DO, LUANNE K V76.51 COLON CANCER SCREENING 10/19/2012 HERNAN CRUZ MD 787 .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 OF FECES 10/19/2012 HERNAN CRUZ MD V65 .49 OTHER SPECIFIED COUNSELING 10/19/2012 HERNAN CRUZ MD V73 .81 HPV SCREENING 10/19/2012 HERNAN CRUZ MD V76 .51 COLON CANCER SCREENING 10/19/2012 LINDA DO, LUANNE [...] WAYNE APRNRICIA R V73.81 HPV SCREENING 10/19/2012 PERRI WAYNE APRNRICIA R V76.51 COLON CANCER SCREENING 10/19/2012 LINDA [...] WAYNE APRNRICIA R V73.81 HPV SCREENING 10/19/2012 PERRI WAYNE APRNRICIA R V76.51 COLON CANCER SCREENING 10/19/2012 ONEYDA [...] OTHER SPECIFIED COUNSELING 10/19/2012 CHRISTA GLORIA APRN T V73.81 HPV SCREENING 10/19/2012 CHRISTA GLORIA APRN T V76.51 COLON CANCER SCREENING 10/19/2012 PERRI WAYNE APRNRICIA R 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 10/19/2012 MARCELO WAYNE APRNIA R V65.49 OTHER SPECIFIED COUNSELING 10/19/2012 MARCELO WAYNE APRNIA R V73.81 HPV SCREENING 10/19/2012 MARCELO WAYNE APRNIA R V76.51 COLON CANCER SCREENING 10/19/2012 CHRISTA GLORIA APRN 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 10/19/2012 CHRISTA GLORIA APRN V65.49 OTHER SPECIFIED COUNSELING 10/19/2012 CHRISTA GLORIA APRN V73.81 HPV SCREENING 10/19/2012 CHRISTA GLORIA APRN V76.51 COLON CANCER SCREENING 11/07/2012 LINDA DO, LUANNE K Ot 327.23 OBSTRUCTIVE SLEEP APNEA (ADULT) (PEDIATR 11/21/2012 LINDA DO, LUANNE K 780.57 SLEEP APNEA 11/21/2012 LINDA DO, LUANNE K 780.57 SLEEP APNEA 11/21/2012 ANTHONY CRYSTAL, HERNAN Mead 780 .57 SLEEP APNEA 11/21/2012 LINDA DO, LUANNE K 780.57 SLEEP APNEA 11/21/2012 LINDA DO, LUANNE K 780.57 SLEEP APNEA 11/21/2012 COLLEEN WAYNE APRN R 780.57 SLEEP APNEA 11/21/2012 LINDA DO, LUANNE K 780.57 SLEEP APNEA 11/21/2012 LINDA DO, LUANNE K 780.57 SLEEP APNEA 11/21/2012 LINDA DO, LUANNE K 780.57 SLEEP APNEA 11/21/2012 LINDA DO, LUANNE K 780.57 SLEEP APNEA 11/21/2012 LINDA DO, LUANNE K 780.57 SLEEP APNEA 11/21/2012 LINDA DO, LUANNE K 780.57 SLEEP APNEA 11/21/2012 MARCELO WAYNE APRNIA R 780.57 SLEEP APNEA 11/21/2012 ONEYDA RUIZ APRN 780.57 SLEEP APNEA 11/21/2012 CHRISTA GLORIA APRN 780.57 SLEEP APNEA 11/21/2012 CHRISTA GLORIA APRN 780.57 SLEEP APNEA 11/21/2012 COLLEEN WAYNE APRN R 780.57 SLEEP APNEA 11/21/2012 CHRISTA GLORIA APRN T 780.57 SLEEP APNEA 04/19/2013 LINDA DO, LUANNE [...] LUANNE K 786.05 SHORTNESS OF BREATH 05/05/2013 MARCELO WAYNE APRNIA R 466.0 BRONCHITIS, ACUTE 05/05/2013 COLLEEN WAYNE APRN R 786.05 SHORTNESS OF BREATH 05/05/2013 ONEYDA RUIZ APRN A 46 6.0 BRONCHITIS, ACUTE 05/05/2013 ONEYDA RUIZ APRN A 786.05 SHORTNESS OF BREATH 05/05/2013 CHRISTA GLORIA APRN T 46 6.0 BRONCHITIS, ACUTE 05/05/2013 CHRISTA GLORIA APRN T 786.05 SHORTNESS OF BREATH 05/05/2013 CHRISTA GLORIA APRN T 46 6.0 BRONCHITIS, ACUTE 05/05/2013 CHRISTA GLORIA APRN T 786.05 SHORTNESS OF BREATH 05/05/2013 COLLEEN WAYNE APRN R 466.0 BRONCHITIS, ACUTE 05/05/2013 COLLEEN WAYEN APRN R 786.05 SHORTNESS OF BREATH 05/05/2013 CHRISTA GLORIA APRN 46 6.0 BRONCHITIS, ACUTE 05/05/2013 CHRISTA GLORIA APRN T 786.05 SHORTNESS OF BREATH 09/13/2013 COLLEEN WAYNE APRN R 625.9 UNSPECIFIED SYMPTOM ASSOCIATED WITH FEMALE GENITAL ORG ANS 09/13/2013 ONEYDA RUIZ APRN A 62 5.9 UNSPECIFIED SYMPTOM ASSOCIATED WITH FEMALE GENITAL ORGANS 09/13/2013 CHRISTA GLORIA APRN 62 5.9 UNSPECIFIED SYMPTOM ASSOCIATED WITH FEMALE GENITAL ORGANS 09/13/2013 CHRISTA GLORIA APRN 62 5.9 UNSPECIFIED SYMPTOM ASSOCIATED WITH FEMALE GENITAL ORGANS 09/13/2013 COLLEEN WAYNE APRN R 625.9 UNSPECIFIED SYMPTOM ASSOCIATED WITH FEMALE GENITAL ORG ANS 09/13/2013 FAIZAN CADMIUM BURNER, CHRISTA T 62 5.9 UNSPECIFIED SYMPTOM ASSOCIATED WITH FEMALE GENITAL ORGANS 09/28/2013 SARA APRN, ONEYDA A 59 9.0 URINARY TRACT INFECTION 09/28/2013 FAIZAN LINGAlyce CHRISTA T 59 9.0 URINARY TRACT INFECTION 09/28/2013 CHRISTA GLORIA APRN 59 9.0 URINARY TRACT INFECTION 09/28/2013 COLLEEN WAYNE APRN R 599.0 URINARY TRACT INFECTION 09/28/2013 CHRISTA GLORIA APRN 59 9.0 URINARY TRACT INFECTION 05/04/2014 ROSANA IRVIN COLLEEN R 786.2 COUGH 05/04/2014 CHRISTA GLORIA APRN 78 6.2 COUGH 12/23/2014 Ot 793.89 12/23/2014 Ot V76.12 12/23/2014 Ot 610.0 12/23/2014 CANDI CRYSTAL, KASIA Canas Ot V72.84 12/23/2014 CANDI CRYSTAL, KASIA Canas Ot V72.84 03/18/2016 MILTON CRYSTAL, HENRY Rodgers Ot M79.604 PAIN IN RIGHT LEG 03/19/2016 MILTON CRYSTAL, HENRY Rodgers Ot M79.604 PAIN IN RIGHT LEG 05/24/2016 SERGIO FARAH MD Ot I74. 10 EMBOLISM AND THROMBOSIS OF UNSPECIFIED P 05/24/2016 SERGIO FARAH MD Ot K44. 9 DIAPHRAGMATIC HERNIA WITHOUT OBSTRUCTION 05/24/2016 SERGIO FARAH MD Ot N28. 1 CYST OF KIDNEY, ACQUIRED 05/24/2016 SERGIO FARAH MD Ot R10. 30 LOWER ABDOMINAL PAIN, UNSPECIFIED 05/24/2016 SERGIO FARAH MD Ot R10. 31 RIGHT LOWER QUADRANT PAIN 05/24/2016 SERGIO FARAH MD Ot R91. 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 10 EMBOLISM AND THROMBOSIS OF UNSPECIFIED P 05/27/2016 SERGIO FARAH MD Ot K44. 9 DIAPHRAGMATIC HERNIA WITHOUT OBSTRUCTION 05/27/2016 SERGIO FARAH MD Ot N28. 1 CYST OF KIDNEY, ACQUIRED 05/27/2016 SERGIO FARAH MD Ot R10. 30 LOWER ABDOMINAL PAIN, UNSPECIFIED 05/27/2016 SERGIO FARAH MD Ot R10. 31 RIGHT LOWER QUADRANT PAIN 05/27/2016 SERGIO FARAH MD Ot R91. 1 SOLITARY PULMONARY NODULE 05/27/2016 SERGIO FARAH MD Ot Z79. 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 10 EMBOLISM AND THROMBOSIS OF UNSPECIFIED P 05/27/2016 SERGIO FARAH MD Ot K44. 9 DIAPHRAGMATIC HERNIA WITHOUT OBSTRUCTION 05/27/2016 SERGIO FARAH MD Ot N28. 1 CYST OF KIDNEY, ACQUIRED 05/27/2016 SERGIO FARAH MD Ot R10. 30 LOWER ABDOMINAL PAIN, UNSPECIFIED 05/27/2016 SERGIO FARAH MD Ot R10. 31 RIGHT LOWER QUADRANT PAIN 05/27/2016 SERGIO FARAH MD Ot R91. 1 SOLITARY PULMONARY NODULE 05/27/2016 SERGIO FARAH MD Ot Z79. 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 10 EMBOLISM AND THROMBOSIS OF UNSPECIFIED P 05/31/2016 SERGIO FARAH MD Ot K44. 9 DIAPHRAGMATIC HERNIA WITHOUT OBSTRUCTION 05/31/2016 SERGIO FARAH MD Ot N28. 1 CYST OF KIDNEY, ACQUIRED 05/31/2016 SERGIO FARAH MD Ot R10. 30 LOWER ABDOMINAL PAIN, UNSPECIFIED 05/31/2016 SERGIO FARAH MD Ot R10. 31 RIGHT LOWER QUADRANT PAIN 05/31/2016 SEGRIO FARAH MD Ot R91. 1 SOLITARY PULMONARY NODULE 05/31/2016 SERGIO FARAH MD Ot Z79. 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 08/07/2017 YUDI MORRISON APRN Ot Z87.19 PERSONAL HISTORY OF OTHER DISEASES OF TH 08/07/2017 YUDI MORRISON APRN Ot 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 08/07/2017 YUDI MORRISON APRN Ot Z90.89 ACQUIRED ABSENCE OF OTHER ORGANS 08/11/2017 YUDI MORRISON APRN Ot F17.210 NICOTINE DEPENDENCE, CIGARETTES, UNCOMPL 08/11/2017 YUDI MORRISON [employer]URNER Ot R07.89 OTHER CHEST PAIN 08/11/2017 YUDI MORRISON APRN Ot 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 08/11/2017 YUDI MORRISON [employer]MI[employer] BURNER Ot 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 08/11/2017 YUDI MORRISON [employer]NER Ot Z87.19 PERSONAL HISTORY OF OTHER DISEASES OF TH 08/11/2017 YUDI MORRISON [employer]NER Ot 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 08/11/2017 YUDI MORRISON [employer]NER Ot Z90.89 ACQUIRED ABSENCE OF OTHER ORGANS 09/08/2017 DEJA ZHONG [employer]URNER Ot Z78.0 ASYMPTOMATIC MENOPAUSAL STATE 09/08/2017 Ot 793.89 OTH (ABN) FINDINGS ON RADIOLOGICAL EXAMI 09/08/2017 Ot V76.12 OTH SCREEN MAMMO- MALIGN NEOPLASM OF [place] 09/08/2017 Ot 610.0 SANJIV TARY CYST OF BREAST 09/08/2017 CANDI CRYSTAL, KASIA Canas Ot V72.84 EXAM PRE-OPERATIVE NOS 09/08/2017 CANDI CRYSTAL, KASIA Canas Ot V72.84 EXAM PRE-OPERATIVE NOS 09/08/2017 DEJA ZHONG [employer]URNER Ot Z78.0 ASYMPTOMATIC MENOPAUSAL STATE 09/12/2017 DEJA ZHONG [employer]NER Ot 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, 09/12/2017 DEJA ZHONG [employer]NER Ot Z13.820 ENCOUNTER FOR SCREENING FOR OSTEOPOROSIS 09/12/2017 DEJA ZHONG [employer]MI[employer]URNER Ot Z78.0 ASYMPTOMATIC MENOPAUSAL STATE 10/02/2017 DEJA ZHONG [employer]MI[employer]URNER Ot 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, 10/02/2017 DEJA ZHONG [employer]MI[employer]URNER Ot Z13.820 ENCOUNTER FOR SCREENING FOR OSTEOPOROSIS 10/02/2017 DEJA ZHONG [employer]MI[employer]URNER Ot Z78.0 ASYMPTOMATIC MENOPAUSAL STATE 12/19/2017 GUSTAVO HUTSON MD Ot F17.210 NICOTINE DEPENDENCE, CIGARETTES, UNCOMPL 12/19/2017 GUSTAVO HUTSON MD Ot I47 .2 VENTRICULAR TACHYCARDIA 12/19/2017 GUSTAVO HUTSON MD Ot N28 .0 ISCHEMIA AND INFARCTION OF KIDNEY 12/19/2017 GUSTAVO HUTSON MD Ot R10.31 RIGHT LOWER QUADRANT PAIN 12/19/2017 GUSTAVO HUTSON MD Ot 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 12/19/2017 GUSTAVO HUTSON MD Ot 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 12/19/2017 GUSTAVO HUTSON MD Ot Z90.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 BOTH CERVIX AND UTER 12/19/2017 GUSTAVO HUTSON MD Ot Z90.79 ACQUIRED ABSENCE OF OTHER GENITAL ORGAN( 12/22/2017 GUSTAVO HUTSON MD Ot F17.210 NICOTINE DEPENDENCE, CIGARETTES, UNCOMPL 12/22/2017 GUSTAVO HUTSON MD Ot I47 .2 VENTRICULAR TACHYCARDIA 12/22/2017 GUSTAVO HUTSON MD Ot N28 .0 ISCHEMIA AND INFARCTION OF KIDNEY 12/22/2017 GUSTAVO HUTSON MD Ot R10.31 RIGHT LOWER QUADRANT PAIN 12/22/2017 GUSTAVO HUTSON MD, Ot Z79.82 RESIDENTIAL (CURRENT) USE OF ASPIRIN 12/22/2017 GUSTAVO HUTSON MD, Ot 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 12/22/2017 GUSTAVO HUTSON MD Ot Z90.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 BOTH CERVIX AND UTER 12/22/2017 GUSTAVO HUTSON MD Ot Z90.79 ACQUIRED ABSENCE OF OTHER GENITAL ORGAN( 02/12/2018 NONA FERNANDEZ DOA K Ot F17.210 NICOTINE DEPENDENCE, CIGARETTES, UNCOMPL 02/12/2018 KEITH FERNANDEZ DO Ot F32.9 MAJOR DEPRESSIVE DISORDER, SINGLE EPISOD 02/12/2018 NONA FERNANDEZ DOA K Ot F41.9 ANXIETY DISORDER, UNSPECIFIED 02/12/2018 REBECCA PORTILLO KEITH K Ot I10 ESSENTIAL (PRIMARY) HYPERTENSION 02/12/2018 KEITH FERNANDEZ DO Ot I25.10 ATHSCL HEART DISEASE OF [place] CORONARY 02/12/2018 NONA FERNANDEZ DOA K Ot M32.9 SYSTEMIC LUPUS ERYTHEMATOSUS, UNSPECIFIE 02/12/2018 KEITH FERNANDEZ DO Ot N39.0 URINARY TRACT INFECTION, SITE NOT SPECIF 02/12/2018 KEITH FERNANDEZ DO Ot R31.9 HEMATURIA, UNSPECIFIED 02/12/2018 NONA FERNANDEZ DOA K Ot Z79.01 RESIDENTIAL (CURRENT) USE OF ANTICOAGULANT 02/12/2018 KEITH FERNANDEZ DO Ot Z79.82 RESIDENTIAL (CURRENT) USE OF ASPIRIN 02/12/2018 KEITH FERNANDEZ DO Ot Z85.41 PERSONAL HISTORY OF MALIGNANT NEOPLASM O 02/12/2018 NONA FERNANDEZ DOA Demond Ot 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 02/12/2018 REBECCA PORTILLO KEITH Demond Ot Z87.19 PERSONAL HISTORY OF OTHER DISEASES OF 02/12/2018 REBECCA PORTILLO KEITH Demond Ot 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 02/12/2018 REBECCA PORTILLO KEITH Demond Ot Z90.5 ACQUIRED ABSENCE OF KIDNEY 02/12/2018 REBECCA NONAA K Ot Z90.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 BOTH CERVIX AND UTER 02/12/2018 REBECCA KEITH Demond Ot Z90.79 ACQUIRED ABSENCE OF OTHER GENITAL ORGAN( 02/12/2018 REBECCA KEITH K Ot Z90.89 ACQUIRED ABSENCE OF OTHER ORGANS 02/12/2018 REBECCA KEITH K Ot Z98.890 OTHER SPECIFIED POSTPROCEDURAL STATES 02/16/2018 REBECCA PORTILLO KEITH K Ot F17.210 NICOTINE DEPENDENCE, CIGARETTES, UNCOMPL 02/16/2018 REBECCA PORTILLO KEITH K Ot F32.9 MAJOR DEPRESSIVE DISORDER, SINGLE EPISOD 02/16/2018 REBECCA KEITH K Ot F41.9 ANXIETY DISORDER, UNSPECIFIED 02/16/2018 REBECCA PORTILLO KEITH Demond Ot I10 ESSENTIAL (PRIMARY) HYPERTENSION 02/16/2018 REBECCA PORTILLO KEITH K Ot I25.10 ATHSCL HEART DISEASE OF [place] CORONARY 02/16/2018 REBECCA PORTILLO KEITH Demond Ot M32.9 SYSTEMIC LUPUS ERYTHEMATOSUS, UNSPECIFIE 02/16/2018 REBECCA PORTILLOKEITH Ot N39.0 URINARY TRACT INFECTION, SITE NOT SPECIF 02/16/2018 REBECCA PORTILLONONAA Demond Ot R31.9 HEMATURIA, UNSPECIFIED 02/16/2018 REBECCA KEITH K Ot 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 02/16/2018 REBECCA PORTILLONONAA Demond Ot 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 02/16/2018 REBECCA NONAA K Ot Z85.41 PERSONAL HISTORY OF MALIGNANT NEOPLASM O 02/16/2018 REBECCA KEITH Demond Ot 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 02/16/2018 REBECCA PORTILLOKEITH Ot Z87.19 PERSONAL HISTORY OF OTHER DISEASES OF 02/16/2018 REBECCA DONONAA K Ot 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 02/16/2018 REBECCA DO KEITH K Ot Z90.5 ACQUIRED ABSENCE OF KIDNEY 02/16/2018 REBECCA DO, KEITH K Ot Z90.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 BOTH CERVIX AND UTER 02/16/2018 REBECCA DO, KEITH K Ot Z90.79 ACQUIRED ABSENCE OF OTHER GENITAL ORGAN( 02/16/2018 REBECCA DO, KEITH K Ot Z90.89 ACQUIRED ABSENCE OF OTHER ORGANS 02/16/2018 REBECCA DO, KEITH K Ot Z98.890 OTHER SPECIFIED POSTPROCEDURAL STATES 05/09/2018 MICKEY KENNEDY Ot F32.9 MAJOR DEPRESSIVE DISORDER, SINGLE EPISOD 05/09/2018 MICKEY KENNEDY Ot F41.9 ANXIETY DISORDER, UNSPECIFIED 05/09/2018 MICKEY KENNEDY Ot I10 ESSENTIAL (PRIMARY) HYPERTENSION 05/09/2018 MICKEY KENNEDY Ot I25.10 ATHSCL HEART DISEASE OF [place] CORONARY 05/09/2018 MICKEY KENNEDY Ot M10.9 GOUT, UNSPECIFIED 05/09/2018 MAGO KENNEDYIS Ot M25.572 PAIN IN LEFT ANKLE AND JOINTS OF LEFT FO 05/09/2018 MICKEY KENNEDY Ot M32.9 SYSTEMIC LUPUS ERYTHEMATOSUS, UNSPECIFIE 05/09/2018 MICKEY KENNEDY Ot R11.2 NAUSEA WITH VOMITING, UNSPECIFIED 05/09/2018 MAGO KENNEDYIS Ot R19.7 DIARRHEA, UNSPECIFIED 05/09/2018 MICKEY KENNEDY Ot Z77.22 CNTCT W AND EXPSR TO ENVIRON TOBACCO SMO 05/09/2018 MICKEY KENNEDY Ot 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 05/09/2018 MAGO KENNEDYIS Ot Z85.41 PERSONAL HISTORY OF MALIGNANT NEOPLASM [...] KENNEDY Ot I25.10 ATHSCL HEART DISEASE OF [place] CORONARY 05/12/2018 MICKEY KENNEDY Ot M10.9 GOUT, UNSPECIFIED 05/12/2018 MICKEY KENNEDY Ot M25.572 PAIN IN LEFT ANKLE AND JOINTS OF LEFT FO 05/12/2018 MAGO KENNEDYIS Ot M32.9 SYSTEMIC LUPUS ERYTHEMATOSUS, UNSPECIFIE 05/12/2018 MAGO KENNEDYIS Ot R11.2 NAUSEA WITH VOMITING, UNSPECIFIED 05/12/2018 MAGO KENNEDYIS Ot R19.7 DIARRHEA, UNSPECIFIED 05/12/2018 MAGO KENNEDYIS Ot Z77.22 CNTCT W AND EXPSR TO ENVIRON TOBACCO SMO 05/12/2018 MAGO KENNEDYIS Ot Z79.82 RESIDENTIAL (CURRENT) USE OF ASPIRIN 05/12/2018 MAGO KENNEDYIS Ot Z85.41 PERSONAL HISTORY OF MALIGNANT NEOPLASM O 05/12/2018 MAGO KENNEDYIS Ot Z87.19 PERSONAL HISTORY OF OTHER DISEASES OF TH 05/12/2018 MICKEY KENNEDY Ot 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 05/12/2018 MICKEY KENNEDY Ot Z90.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 BOTH CERVIX AND UTER 05/12/2018 MAGO KENNEDYIS Ot Z90.89 ACQUIRED ABSENCE OF OTHER ORGANS 05/12/2018 MICKEY KENNEDY Ot Z98.890 OTHER SPECIFIED POSTPROCEDURAL STATES 05/12/2018 CANDI CRYSTAL, KASAI Canas Ot V72.84 EXAM PRE-OPERATIVE NOS 05/12/2018 CANDI CRYSTAL, KASIA Canas Ot V72.84 EXAM PRE-OPERATIVE NOS 05/12/2018 DEJA ZHONG BRANDEE Ot 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, 05/12/2018 DEJA ZHONG BRANDEE Ot Z13.820 ENCOUNTER FOR SCREENING FOR OSTEOPOROSIS 05/12/2018 DEJA ZHONG BRANDEE Ot Z78.0 ASYMPTOMATIC MENOPAUSAL STATE 05/12/2018 HENRY ROSE MD Ot M79.605 PAIN IN LEFT LEG 05/17/2018 HENRY ROSE MD Ot M79.605 PAIN IN LEFT LEG 07/20/2018 HERNAN CRUZ MD Ot E78.00 PURE HYPERCHOLESTEROLEMIA, UNSPECIFIED 07/20/2018 HERNAN CRUZ MD Ot E78 .5 HYPERLIPIDEMIA, UNSPECIFIED 07/20/2018 HERNAN CRUZ MD Ot E87 .6 HYPOKALEMIA 07/20/2018 HERNAN CRUZ MD Ot F17.210 NICOTINE DEPENDENCE, CIGARETTES, UNCOMPL 07/20/2018 HERNAN CRUZ MD Ot F32 .9 MAJOR DEPRESSIVE DISORDER, SINGLE EPISOD 07/20/2018 HERNAN CRUZ MD, Ot F41 .9 ANXIETY DISORDER, UNSPECIFIED 07/20/2018 HERNAN CRUZ MD Ot G47.30 SLEEP APNEA, UNSPECIFIED 07/20/2018 HERNAN CRUZ MD Ot 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, LEFT EYE, OSIEL 07/20/2018 HERNAN CRUZ MD Ot I10 ESSENTIAL (PRIMARY) HYPERTENSION 07/20/2018 HERNAN CRUZ MD Ot I25.10 ATHSCL HEART DISEASE OF [place] CORONARY 07/20/2018 HERNAN CRUZ MD Ot I34 .0 NONRHEUMATIC MITRAL (VALVE) INSUFFICIENC 07/20/2018 HERNAN CRUZ MD Ot I63 .9 CEREBRAL INFARCTION, UNSPECIFIED 07/20/2018 HERNAN CRUZ MD Ot I65.21 OCCLUSION AND STENOSIS OF RIGHT CAROTID 07/20/2018 HERNAN CRUZ MD Ot I89 .0 LYMPHEDEMA, NOT ELSEWHERE CLASSIFIED 07/20/2018 HERNAN CRUZ MD Ot M19.91 PRIMARY OSTEOARTHRITIS, UNSPECIFIED SITE 07/20/2018 HERNAN CRUZ MD, Ot N39 .0 URINARY TRACT INFECTION, SITE NOT SPECIF 07/20/2018 HERNAN CRUZ MD, Ot Z79.01 RESIDENTIAL (CURRENT) USE OF ANTICOAGULANT 07/20/2018 HERNAN CRUZ MD, Ot Z85.41 PERSONAL HISTORY OF MALIGNANT NEOPLASM O 07/20/2018 HERNAN CRUZ MD, Ot 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 07/20/2018 HERNAN CRUZ MD, Ot Z86.718 PERSONAL HISTORY OF OTHER VENOUS THROMBO 07/20/2018 HERNAN CRUZ MD, Ot Z91.19 PATIENT'S NONCOMPLIANCE W [facility] 07/20/2018 HERNAN CRUZ MD, Ot Z92.21 PERSONAL HISTORY OF ANTINEOPLASTIC CHEMO 07/21/2018 HERNAN CRUZ MD Ot E78.00 PURE HYPERCHOLESTEROLEMIA, UNSPECIFIED 07/21/2018 HERNAN CRUZ MD Ot E78 .2 MIXED HYPERLIPIDEMIA 07/21/2018 HERNAN CRUZ MD Ot E78 .5 HYPERLIPIDEMIA, UNSPECIFIED 07/21/2018 HERNAN CRUZ MD Ot E87 .6 HYPOKALEMIA 07/21/2018 HERNAN CRUZ MD Ot F17.210 NICOTINE DEPENDENCE, CIGARETTES, UNCOMPL 07/21/2018 HERNAN CRUZ MD Ot F32 .9 MAJOR DEPRESSIVE DISORDER, SINGLE EPISOD 07/21/2018 HERNAN CRUZ MD Ot F41 .9 ANXIETY DISORDER, UNSPECIFIED 07/21/2018 HRENAN CRUZ MD Ot G47.30 SLEEP APNEA, UNSPECIFIED 07/21/2018 HERNAN CRUZ MD Ot 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, LEFT 07/21/2018 HERNAN CRUZ MD Ot 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, LEFT EYE, OSIEL 07/21/2018 HERNAN CRUZ MD Ot I10 ESSENTIAL (PRIMARY) HYPERTENSION 07/21/2018 HERNAN CRUZ MD Ot I25.10 ATHSCL HEART DISEASE OF [place] CORONARY 07/21/2018 HERNAN CRUZ MD Ot I34 .0 NONRHEUMATIC MITRAL (VALVE) INSUFFICIENC 07/21/2018 HERNAN CRUZ MD, Ot I63 .9 CEREBRAL INFARCTION, UNSPECIFIED 07/21/2018 HERNAN CRUZ MD, Ot I65.21 OCCLUSION AND STENOSIS OF RIGHT CAROTID 07/21/2018 HERNAN CRUZ MD, Ot I65.23 OCCLUSION AND STENOSIS OF BILATERAL [place] 07/21/2018 HERNAN CRUZ MD, Ot I89 .0 LYMPHEDEMA, NOT ELSEWHERE CLASSIFIED 07/21/2018 HERNAN CRUZ MD, Ot K52 .9 NONINFECTIVE GASTROENTERITIS AND COLITIS 07/21/2018 HERNAN CRUZ MD, Ot M10 .9 GOUT, UNSPECIFIED 07/21/2018 HERNAN CRUZ MD, Ot M19.91 PRIMARY OSTEOARTHRITIS, UNSPECIFIED SITE 07/21/2018 HERNAN CRUZ MD, Ot M32 .9 SYSTEMIC LUPUS ERYTHEMATOSUS, UNSPECIFIE 07/21/2018 HERNAN CRUZ MD, Ot N39 .0 URINARY TRACT INFECTION, SITE NOT SPECIF 07/21/2018 HERNAN CRUZ MD, Ot Z79.01 RESIDENTIAL (CURRENT) USE OF ANTICOAGULANT 07/21/2018 HERNAN CRUZ [...] REAL DO Ot E78.5 HYPERLIPIDEMIA, UNSPECIFIED 07/31/2018 SERINA DEL REAL DO Ot F17.21 0 NICOTINE DEPENDENCE, CIGARETTES, UNCOMPL 07/31/2018 SERINA DEL REAL DO Ot F32.9 MAJOR DEPRESSIVE DISORDER, SINGLE EPISOD 07/31/2018 DEL REAL DO, SERINA Ot F41.9 ANXIETY DISORDER, UNSPECIFIED 07/31/2018 GT PORTILLO, SERINA Ot H53.46 2 HOMONYMOUS BILATERAL FIELD DEFECTS, LEFT 07/31/2018 GT PORTILLO SERINA Ot I10 ESSENTIAL (PRIMARY) HYPERTENSION 07/31/2018 GT PORTILLO SERINA Ot I25.10 ATHSCL HEART DISEASE OF [place] CORONARY 07/31/2018 GT PORTILLO SERINA Ot I65.23 OCCLUSION AND STENOSIS OF BILATERAL [place] 07/31/2018 GT PORTILLO SERINA Ot I69.39 8 OTHER SEQUELAE OF CEREBRAL INFARCTION 07/31/2018 GT PORTILLO SERINA Ot I82.3 EMBOLISM AND THROMBOSIS OF [place] 07/31/2018 DEL REAL DO SERINA Ot I89.0 LYMPHEDEMA, NOT ELSEWHERE CLASSIFIED [...] PORTILLO SERINA Ot R29.6 REPEATED FALLS 07/31/2018 GT PORTILLO SERINA Ot R53.1 WEAKNESS 07/31/2018 GT PORTILLO SERINA Ot 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 07/31/2018 GT PORTILLO SERINA Ot Z82.3 FAMILY HISTORY OF STROKE 07/31/2018 GT PORTILLO SERINA Ot Z82.49 FAMILY HX OF ISCHEM HEART DIS AND OTH DI 07/31/2018 GT PORTILLO SERINA Ot Z85.41 PERSONAL HISTORY OF MALIGNANT NEOPLASM O 07/31/2018 GT PORTILLO SERINA Ot 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 10/30/2018 ALDEN ALVARADO Ot E78.00 PURE HYPERCHOLESTEROLEMIA, UNSPECIFIED 10/30/2018 ALDEN ALVARADO Ot F17.210 NICOTINE DEPENDENCE, CIGARETTES, UNCOMPL 10/30/2018 ALDEN ALVARADO Ot F32.9 MAJOR DEPRESSIVE DISORDER, SINGLE EPISOD 10/30/2018 ALDEN ALVARADO Ot F41.9 ANXIETY DISORDER, UNSPECIFIED 10/30/2018 ALDEN ALVARADO Ot G62.9 POLYNEUROPATHY, UNSPECIFIED 10/30/2018 ALDEN ALVARADO Ot I12.9 HYPERTENSIVE CHRONIC KIDNEY DISEASE W ST 10/30/2018 ALDEN ALVARADO Ot I25.10 ATHSCL HEART DISEASE OF [place] CORONARY 10/30/2018 ALDEN ALVARADO Ot I73.9 PERIPHERAL VASCULAR DISEASE, UNSPECIFIED 10/30/2018 ALDEN ALVARADO Ot L03.031 CELLULITIS OF RIGHT TOE 10/30/2018 ALDEN ALVARADO Ot M32.9 SYSTEMIC LUPUS ERYTHEMATOSUS, UNSPECIFIE 10/30/2018 ALDEN ALVARADO Ot M79.671 PAIN IN RIGHT FOOT 10/30/2018 ALDEN ALVARADO Ot N18.9 CHRONIC KIDNEY DISEASE, UNSPECIFIED 10/30/2018 ALDEN ALVARADO Ot 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 10/30/2018 ALDEN ALVARADO Ot Z85.41 PERSONAL HISTORY OF MALIGNANT NEOPLASM O 10/30/2018 ALDEN ALVARADO Ot 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 10/30/2018 ALDEN ALVARADO Ot Z86.73 PRSNL HX OF TIA (TIA), AND CEREB INFRC W 10/30/2018 ALDEN ALVARADO Ot Z87.01 PERSONAL HISTORY OF PNEUMONIA (RECURRENT 10/30/2018 ALDEN ALVARADO Ot Z90.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 BOTH CERVIX AND UTER 10/30/2018 ALDEN ALVARADO Ot Z90.89 ACQUIRED ABSENCE OF OTHER ORGANS 11/03/2018 ALDEN ALVARADO Ot E78.00 PURE HYPERCHOLESTEROLEMIA, UNSPECIFIED 11/03/2018 ALDEN ALVARADO Ot F17.210 NICOTINE DEPENDENCE, CIGARETTES, UNCOMPL 11/03/2018 ALDEN ALVARADO Ot F32.9 MAJOR DEPRESSIVE DISORDER, SINGLE EPISOD 11/03/2018 ALDEN ALVARADO Ot F41.9 ANXIETY DISORDER, UNSPECIFIED 11/03/2018 ALDEN ALVARADO Ot G62.9 POLYNEUROPATHY, UNSPECIFIED 11/03/2018 ALDEN ALVARADO Ot I12.9 HYPERTENSIVE CHRONIC KIDNEY DISEASE W ST 11/03/2018 ALDEN ALVARADO Ot I25.10 ATHSCL HEART DISEASE OF [place] CORONARY 11/03/2018 ALDEN ALVARADO Ot I73.9 PERIPHERAL VASCULAR DISEASE, UNSPECIFIED 11/03/2018 ALDEN ALVARADO Ot L03.031 CELLULITIS OF RIGHT TOE 11/03/2018 ALDEN ALVARADO Ot M32.9 SYSTEMIC LUPUS ERYTHEMATOSUS, UNSPECIFIE 11/03/2018 ALDEN ALVARADO Ot M79.671 PAIN IN RIGHT FOOT 11/03/2018 ALDEN ALVARADO Ot N18.9 CHRONIC KIDNEY DISEASE, UNSPECIFIED 11/03/2018 ALDEN ALVARADO Ot 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 11/03/2018 ALDEN ALVARADO Ot Z85.41 PERSONAL HISTORY OF MALIGNANT NEOPLASM O 11/03/2018 ALDEN ALVARADO Ot 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 11/03/2018 ALDEN ALVARADO Ot Z86.73 PRSNL HX OF TIA (TIA), AND CEREB INFRC W 11/03/2018 ALDEN ALVARADO Ot Z87.01 PERSONAL HISTORY OF PNEUMONIA (RECURRENT 11/03/2018 ADLEN ALVARADO Ot Z90.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 BOTH CERVIX AND UTER 11/03/2018 ALDEN ALVARADO Ot Z90.89 ACQUIRED ABSENCE OF OTHER ORGANS 12/17/2018 CANDI CRYSTAL, KASIA M Ot V72.84 EXAM PRE-OPERATIVE NOS 12/17/2018 DEJA ZHONG APRN Ot 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, 12/17/2018 DEJA ZHONG APRN Ot Z13.820 ENCOUNTER FOR SCREENING FOR OSTEOPOROSIS 12/17/2018 DEJA ZHONG CADMIUM BURNER Ot Z78.0 ASYMPTOMATIC MENOPAUSAL STATE 12/17/2018 MILTON CRYSTAL, HENRY Rodgers Ot M79.605 PAIN IN LEFT LEG 12/21/2018 DEJA ZHONG [employer]MI[employer]URNER Ot 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, 12/21/2018 ZHONGDEJA PATEL [employer]URNER Ot Z13.820 ENCOUNTER FOR SCREENING FOR OSTEOPOROSIS 12/21/2018 ZHONGDEJA PATEL [employer]MIUM [employer]URNER Ot Z78.0 ASYMPTOMATIC MENOPAUSAL STATE 12/21/2018 MILTON CRYSTAL, HENRY Rodgers Ot M79.605 PAIN IN LEFT LEG 12/23/2018 HERNAN CRUZ MD Ot A41 .9 SEPSIS, UNSPECIFIED ORGANISM 12/23/2018 HERNAN CRUZ MD, Ot B96.20 UNSP ESCHERICHIA COLI THE CAUSE OF DI 12/23/2018 HERNAN CRUZ MD Ot E78.00 PURE HYPERCHOLESTEROLEMIA, UNSPECIFIED 12/23/2018 HERNAN CRUZ MD Ot F17.210 NICOTINE DEPENDENCE, CIGARETTES, UNCOMPL 12/23/2018 HERNAN CRUZ MD, Ot F41 .8 OTHER SPECIFIED ANXIETY DISORDERS 12/23/2018 HERNAN CRUZ MD Ot G62 .9 POLYNEUROPATHY, UNSPECIFIED 12/23/2018 HERNAN CRUZ MD, Ot I25.10 ATHSCL HEART DISEASE OF [place] CORONARY 12/23/2018 HERNAN CRUZ MD Ot I82 .3 EMBOLISM AND THROMBOSIS OF RENAL VEIN 12/23/2018 HERNAN CRUZ MD Ot I95 .9 HYPOTENSION, UNSPECIFIED 12/23/2018 HERNAN CRUZ MD, Ot M19.90 UNSPECIFIED OSTEOARTHRITIS, UNSPECIFIED 12/23/2018 HERNAN CRUZ MD, Ot M1A.9XX0 CHRONIC GOUT, UNSPECIFIED, WITHOUT TOPHU 12/23/2018 HERNAN CRUZ MD Ot M25.511 PAIN IN RIGHT SHOULDER 12/23/2018 HERNAN CRUZ MD, Ot M86 .9 OSTEOMYELITIS, UNSPECIFIED 12/23/2018 HERNAN CRUZ MD, Ot N17 .9 ACUTE KIDNEY FAILURE, UNSPECIFIED 12/23/2018 HERNAN CRUZ MD Ot N39 .0 URINARY TRACT INFECTION, SITE NOT SPECIF 12/23/2018 HERNAN CRUZ MD Ot 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 12/23/2018 HERNAN CRUZ MD, Ot Z79.891 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 OF OPIATE ANALGE 12/23/2018 HERNAN CRUZ MD, Ot Z79.899 OTHER RESIDENTIAL (CURRENT) DRUG THERAPY 12/23/2018 HERNAN CRUZ MD, Ot Z90.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 BOTH CERVIX AND UTER 12/23/2018 HERNAN CRUZ MD, Ot Z90.89 ACQUIRED ABSENCE OF OTHER ORGANS 12/23/2018 HERNAN CRUZ MD, Ot Z92.21 PERSONAL HISTORY OF ANTINEOPLASTIC CHEMO 12/23/2018 HERNAN CRUZ MD, Ot Z92 .3 PERSONAL HISTORY OF IRRADIATION 12/25/2018 YUDI MORRISON APRN Ot E78.00 PURE HYPERCHOLESTEROLEMIA, UNSPECIFIED 12/25/2018 YUDI MORRISON APRN Ot E87 .6 HYPOKALEMIA 12/25/2018 YUDI MORRISON APRN Ot F17.210 NICOTINE DEPENDENCE, CIGARETTES, UNCOMPL 12/25/2018 YUDI MORRISON APRN Ot F41 .9 ANXIETY DISORDER, UNSPECIFIED 12/25/2018 YUDI MORRISON APRN Ot G62 .9 POLYNEUROPATHY, UNSPECIFIED 12/25/2018 YUDI MORRISON APRN Ot I10 ESSENTIAL (PRIMARY) HYPERTENSION 12/25/2018 YUDI MORRISON APRN Ot I25.10 ATHSCL HEART DISEASE OF [place] CORONARY 12/25/2018 YUDI MORRISON APRN Ot M86 .9 OSTEOMYELITIS, UNSPECIFIED 12/25/2018 YUDI MORRISON APRN Ot N39 .0 URINARY TRACT INFECTION, SITE NOT SPECIF 12/25/2018 YUDI MORRISON APRN Ot 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 12/25/2018 YUDI MORRISON APRN Ot 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 12/25/2018 YUDI MORRISON APRN Ot Z79.82 RESIDENTIAL (CURRENT) USE OF ASPIRIN 12/25/2018 YUDI MORRISON APRN Ot Z85.41 PERSONAL HISTORY OF MALIGNANT NEOPLASM O 12/25/2018 YUDI MORRISON APRN Ot 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 12/25/2018 YUDI MORRISON APRN Ot Z86.718 PERSONAL HISTORY OF OTHER VENOUS THROMBO 12/25/2018 YUDI MORRISON APRN Ot Z86.73 PRSNL HX OF TIA (TIA), AND CEREB INFRC W 12/25/2018 YUDI MORRISON APRN Ot Z87.39 PERSONAL HISTORY OF DISEASES OF THE MS S 12/25/2018 YUDI MORRISON APRN Ot Z90.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 BOTH CERVIX AND UTER 12/25/2018 YUDI MORRISON APRN Ot Z90.89 ACQUIRED ABSENCE OF OTHER ORGANS 12/30/2018 YUDI MORRISON APRN Ot E78.00 PURE HYPERCHOLESTEROLEMIA, UNSPECIFIED 12/30/2018 YUDI MORRISON APRN Ot E87 .6 HYPOKALEMIA 12/30/2018 YUDI MORRISON APRN Ot F17.210 NICOTINE DEPENDENCE, CIGARETTES, UNCOMPL 12/30/2018 YUDI MORRISON APRN Ot F41 .9 ANXIETY DISORDER, UNSPECIFIED 12/30/2018 YUDI MORRISON APRN Ot G62 .9 POLYNEUROPATHY, UNSPECIFIED 12/30/2018 YUDI MORRISON APRN Ot I10 ESSENTIAL (PRIMARY) HYPERTENSION 12/30/2018 YUDI MORRISON APRN Ot I25.10 ATHSCL HEART DISEASE OF [place] CORONARY 12/30/2018 YUDI MORRISON APRN Ot M86 .9 OSTEOMYELITIS, UNSPECIFIED 12/30/2018 YUDI MORRISON APRN Ot N39 .0 URINARY TRACT INFECTION, SITE NOT SPECIF 12/30/2018 YUDI MORRISON APRN Ot Z79.01 RESIDENTIAL (CURRENT) USE OF ANTICOAGULANT 12/30/2018 YUDI MORRISON APRN Ot 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 12/30/2018 YUDI MORRISON APRN Ot 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 12/30/2018 YUDI MORRISON APRN Ot Z85.41 PERSONAL HISTORY OF MALIGNANT NEOPLASM O 12/30/2018 YUDI MORRISON APRN Ot 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 12/30/2018 YUDI MORRISON APRN Ot Z86.718 PERSONAL HISTORY OF OTHER VENOUS THROMBO 12/30/2018 YUDI MORRISON APRN Ot Z86.73 PRSNL HX OF TIA (TIA), AND CEREB INFRC W 12/30/2018 YUDI MORRISON APRN Ot Z87.39 PERSONAL HISTORY OF DISEASES OF THE MS S 12/30/2018 YUDI MORRISON APRN Ot Z90.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 BOTH CERVIX AND UTER 12/30/2018 YUDI MORRISON APRN Ot Z90.89 ACQUIRED ABSENCE OF OTHER ORGANS 01/06/2019 YUDI MORRISON APRN Ot E78.00 PURE HYPERCHOLESTEROLEMIA, UNSPECIFIED 01/06/2019 YUDI MORRISON APRN Ot E87 .6 HYPOKALEMIA 01/06/2019 YUDI MORRISON APRN Ot F17.210 NICOTINE DEPENDENCE, CIGARETTES, UNCOMPL 01/06/2019 YUDI MORRISON APRN Ot F41 .9 ANXIETY DISORDER, UNSPECIFIED 01/06/2019 YUDI MORRISON APRN Ot G62 .9 POLYNEUROPATHY, UNSPECIFIED 01/06/2019 YUDI MORRISON APRN Ot I10 ESSENTIAL (PRIMARY) HYPERTENSION 01/06/2019 YUDI MORRISON APRN Ot I25.10 ATHSCL HEART DISEASE OF [place] CORONARY 01/06/2019 YUDI MORRISON APRN Ot M86 .9 OSTEOMYELITIS, UNSPECIFIED 01/06/2019 YUDI MORRISON APRN Ot N39 .0 URINARY TRACT INFECTION, SITE NOT SPECIF 01/06/2019 YUDI MORRISON APRN Ot Z79.01 RESIDENTIAL (CURRENT) USE OF ANTICOAGULANT 01/06/2019 YUDI MORRISON APRN Ot 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 01/06/2019 YUDI MORRISON APRN Ot 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 01/06/2019 YUDI MORRISON APRN Ot Z85.41 PERSONAL HISTORY OF MALIGNANT NEOPLASM O 01/06/2019 YUDI MORRISON APRN Ot 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 01/06/2019 YUDI MORRISON APRN Ot Z86.718 PERSONAL HISTORY OF OTHER VENOUS THROMBO 01/06/2019 YUDI MORRISON APRN Ot Z86.73 PRSNL HX OF TIA (TIA), AND CEREB INFRC W 01/06/2019 YUDI MORRISON APRN Ot Z87.39 PERSONAL HISTORY OF DISEASES OF THE MS S 01/06/2019 YUDI MORRISON APRN Ot Z90.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 BOTH CERVIX AND UTER 01/06/2019 YUDI MORRISON APRN Ot Z90.89 ACQUIRED ABSENCE OF OTHER ORGANS 01/13/2019 HERNAN CRUZ MD N Ot M86.8X8 OTHER OSTEOMYELITIS, OTHER SITE 01/14/2019 PIERO SOUSA MD Ot I70.235 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 UL 01/14/2019 PIERO SOUSA MD, Ot I70.245 ATHSCL [place] ARTERIES OF LEFT LEG W ULC 01/14/2019 PIERO SOUSA MD, Ot L97.512 NON-PRS CHRONIC ULCER OTH PRT RIGHT FOOT 01/14/2019 PIERO SOUSA MD, Ot L97.522 NON-PRS CHRONIC ULCER OTH PRT LEFT FOOT 01/14/2019 PIERO SOUSA MD, Ot M32.19 OTH ORGAN OR SYSTEM INVOLV IN SYSTEMIC L 01/14/2019 PIERO SOUSA MD, Ot N18 .4 CHRONIC KIDNEY DISEASE, STAGE 4 (SEVERE) 01/14/2019 PIERO SOUSA MD, Ot T65.222A TOXIC EFFECT OF TOBACCO CIGARETTES, SELF 01/14/2019 HERNAN CRUZ MD N Ot M86.8X8 OTHER OSTEOMYELITIS, OTHER SITE 01/15/2019 ANTHONY CRYSTAL HERNAN N Ot M86.8X8 OTHER OSTEOMYELITIS, OTHER SITE 01/16/2019 ANTHONY CRYSTAL HERNAN N Ot M86.8X8 OTHER OSTEOMYELITIS, OTHER SITE 01/17/2019 ANTHONY CRYSTAL HERNAN N Ot M86.8X8 OTHER OSTEOMYELITIS, OTHER SITE 01/18/2019 HERNAN CRUZ MD N Ot M86.8X8 OTHER OSTEOMYELITIS, OTHER SITE 01/19/2019 HERNAN CRUZ MD N Ot M86.8X8 OTHER OSTEOMYELITIS, OTHER SITE 01/20/2019 ANTHONY CRYSTAL HERNAN N Ot M86.8X8 OTHER OSTEOMYELITIS, OTHER SITE 01/21/2019 ANTHONY CRYSTAL HERNAN N Ot M86.8X8 OTHER OSTEOMYELITIS, OTHER SITE 01/22/2019 ANTHONY CRYSTAL HERNAN N Ot M86.8X8 OTHER OSTEOMYELITIS, OTHER SITE 01/23/2019 ANTHONY CRYSTAL HERNAN N Ot M86.8X8 OTHER OSTEOMYELITIS, OTHER SITE 01/24/2019 ANTHONY CRYSTAL HERNAN N Ot M86.8X8 OTHER OSTEOMYELITIS, OTHER SITE 01/25/2019 ANTHONY CRYSTAL HERNAN N Ot M86.8X8 OTHER OSTEOMYELITIS, OTHER SITE 01/26/2019 ANTHONY CRYSTAL, HERNAN Mead Ot M86.8X8 OTHER OSTEOMYELITIS, OTHER SITE 01/27/2019 HERNAN CRUZ MD Ot M86.8X8 OTHER OSTEOMYELITIS, OTHER SITE 01/28/2019 HERNAN CRUZ MD Ot M86.8X8 OTHER OSTEOMYELITIS, OTHER SITE 01/28/2019 PIERO SOUSA MD Ot I70.235 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 01/28/2019 PIERO SOUSA MD Ot I70.245 ATHSCL [place] ARTERIES OF LEFT LEG W [facility] 01/28/2019 PIERO SOUSA MD, Ot L97.512 NON-PRS CHRONIC ULCER OTH PRT RIGHT FOOT 01/28/2019 PIERO SOUSA MD, Ot L97.522 NON-PRS CHRONIC ULCER OTH PRT LEFT FOOT 01/28/2019 PIERO SOUSA MD Ot M32.19 OTH ORGAN OR SYSTEM INVOLV IN SYSTEMIC L 01/28/2019 PIERO SOUSA MD Ot N18 .4 CHRONIC KIDNEY DISEASE, STAGE 4 (SEVERE) 01/28/2019 PIERO SOUSA MD Ot T65.222A TOXIC EFFECT OF TOBACCO CIGARETTES, SELF 01/29/2019 ANTHONY CRYSTAL, HERNAN Mead Ot M86.8X8 OTHER OSTEOMYELITIS, OTHER SITE 01/30/2019 HERNAN CRUZ MD Ot M86.8X8 OTHER OSTEOMYELITIS, OTHER SITE 01/31/2019 HERNAN CRUZ MD Ot M86.8X8 OTHER OSTEOMYELITIS, OTHER SITE 02/01/2019 HERNAN CRUZ MD Ot M86.8X8 OTHER OSTEOMYELITIS, OTHER SITE 02/02/2019 PIERO SOUSA MD Ot F17.218 NICOTINE DEPENDENCE, CIGARETTES, W OTH D 02/02/2019 PIERO SOUSA MD Ot I70.235 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 02/02/2019 PIERO SOUSA MD Ot I70.245 ATHSCL [place] ARTERIES OF LEFT LEG W [facility] 02/02/2019 PIERO SOUSA MD Ot I96 GANGRENE, NOT ELSEWHERE CLASSIFIED 02/02/2019 PIERO SOUSA MD Ot L97.512 NON-PRS CHRONIC ULCER OTH PRT RIGHT FOOT 02/02/2019 PIERO SOUSA MD, Ot L97.522 NON-PRS CHRONIC ULCER OTH PRT LEFT FOOT 02/02/2019 PIERO SOUSA MD, Ot M32.19 OTH ORGAN OR SYSTEM INVOLV IN SYSTEMIC L 02/02/2019 PIERO SOUSA MD, Ot N18 .4 CHRONIC KIDNEY DISEASE, STAGE 4 (SEVERE) 02/02/2019 PIERO SOUSA MD, Ot T65.222A TOXIC EFFECT OF TOBACCO CIGARETTES, SELF 02/02/2019 ANTHONY CRYSTAL, HERNAN Mead Ot M86.8X8 OTHER OSTEOMYELITIS, OTHER SITE 02/03/2019 ANTHONY CRYSTAL, HERNAN Mead Ot M86.8X8 OTHER OSTEOMYELITIS, OTHER SITE 02/12/2019 HERNAN CRUZ MD Ot M86.8X8 OTHER OSTEOMYELITIS, OTHER SITE 02/15/2019 PIERO SOUSA MD, Ot F17.218 NICOTINE DEPENDENCE, CIGARETTES, W OTH D 02/15/2019 PIERO SOUSA MD Ot I70.235 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 UL 02/15/2019 PIERO SOUSA MD Ot I70.245 ATHSCL [place] ARTERIES OF LEFT LEG W ULC 02/15/2019 PIERO SOUSA MD Ot I96 GANGRENE, NOT ELSEWHERE CLASSIFIED 02/15/2019 PIERO SOUSA MD, Ot L97.512 NON-PRS CHRONIC ULCER OTH PRT RIGHT FOOT 02/15/2019 PIERO SOUSA MD, Ot L97.522 NON-PRS CHRONIC ULCER OTH PRT LEFT FOOT 02/15/2019 PIERO SOUSA MD, Ot M32.19 OTH ORGAN OR SYSTEM INVOLV IN SYSTEMIC L 02/15/2019 PIERO SOUSA MD, Ot N18 .4 CHRONIC KIDNEY DISEASE, STAGE 4 (SEVERE) 02/15/2019 PIERO SOUSA MD, Ot T65.222A TOXIC EFFECT OF TOBACCO CIGARETTES, SELF 02/16/2019 PIERO SOUSA MD, Ot F17.218 NICOTINE DEPENDENCE, CIGARETTES, W OTH D 02/16/2019 PIERO SOUSA MD Ot I70.235 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 UL 02/16/2019 PIERO SOUSA MD Ot I96 GANGRENE, NOT ELSEWHERE CLASSIFIED 02/16/2019 PIERO SOUSA MD, Ot L97.512 NON-PRS CHRONIC ULCER OTH PRT RIGHT FOOT 02/16/2019 PIERO SOUSA MD, Ot M32.19 OTH ORGAN OR SYSTEM INVOLV IN SYSTEMIC L 02/16/2019 PIERO SOUSA MD, Ot N18 .4 CHRONIC KIDNEY DISEASE, STAGE 4 (SEVERE) 02/16/2019 PIERO SOUSA MD, Ot T65.222A TOXIC EFFECT OF TOBACCO CIGARETTES, SELF 02/22/2019 ANHTONY CRYSTAL, HERNAN Mead Ot M86.8X8 OTHER OSTEOMYELITIS, OTHER SITE 02/24/2019 ANTHONY CRYSTAL, HERNAN Mead Ot M86.8X8 OTHER OSTEOMYELITIS, OTHER SITE 03/04/2019 ANTHONY CRYSTAL, HERNAN Mead Ot M86.8X8 OTHER OSTEOMYELITIS, OTHER SITE 03/04/2019 ANTHONY CRYSTAL, HERNAN Mead Ot M86.8X8 OTHER OSTEOMYELITIS, OTHER SITE 05/04/2019 DEJA ZHONG APRN Ot 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, 05/04/2019 DEJA ZHONG CADMIUM BURNER Ot Z13.820 ENCOUNTER FOR SCREENING FOR OSTEOPOROSIS 05/04/2019 DEJA ZHONG CADMIUM BURNER Ot Z78.0 ASYMPTOMATIC MENOPAUSAL STATE 05/04/2019 MILTON CRYSTAL, HENRY Rodgers Ot M79.605 PAIN IN LEFT LEG 05/04/2019 PIERO SOUSA MD Ot I70.235 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 05/04/2019 PIERO SOUSA MD Ot I70.245 ATHSCL [place] ARTERIES OF LEFT LEG W [facility] 05/04/2019 PIERO SOUSA MD Ot L97.512 NON-PRS CHRONIC ULCER OTH PRT RIGHT FOOT 05/04/2019 PIERO SOUSA MD Ot L97.522 NON-PRS CHRONIC ULCER OTH PRT LEFT FOOT 05/04/2019 PIERO SOUSA MD, Ot M32.19 OTH ORGAN OR SYSTEM INVOLV IN SYSTEMIC L 05/04/2019 PIERO SOUSA MD, Ot N18 .4 CHRONIC KIDNEY DISEASE, STAGE 4 (SEVERE) 05/04/2019 PIERO SOUSA MD, Ot T65.222A TOXIC EFFECT OF TOBACCO CIGARETTES, SELF 05/04/2019 PIERO SOUSA MD Ot F17.218 NICOTINE DEPENDENCE, CIGARETTES, W OTH D 05/04/2019 PIERO SOUSA MD Ot I70.235 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 05/04/2019 PIERO SOUSA MD Ot I70.245 ATHSCL [place] ARTERIES OF LEFT LEG W [facility] 05/04/2019 PIERO SOUSA MD Ot I96 GANGRENE, NOT ELSEWHERE CLASSIFIED 05/04/2019 PIERO SOUSA MD Ot L97.512 NON-PRS CHRONIC ULCER OTH PRT RIGHT FOOT 05/04/2019 PIERO SOUSA MD Ot L97.522 NON-PRS CHRONIC ULCER OTH PRT LEFT FOOT 05/04/2019 PIERO SOUSA MD Ot M32.19 OTH ORGAN OR SYSTEM INVOLV IN SYSTEMIC L 05/04/2019 PIERO SOUSA MD Ot N18 .4 CHRONIC KIDNEY DISEASE, STAGE 4 (SEVERE) 05/04/2019 PIERO SOUSA MD Ot T65.222A TOXIC EFFECT OF TOBACCO CIGARETTES, SELF 05/04/2019 PIERO SOUSA MD Ot F17.218 NICOTINE DEPENDENCE, CIGARETTES, W OTH D 05/04/2019 PIERO SOUSA MD Ot I70.235 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 05/04/2019 PIERO OSUSA MD Ot I70.245 ATHSCL [place] ARTERIES OF LEFT LEG W [facility] 05/04/2019 PIERO SOUSA MD Ot I96 GANGRENE, NOT ELSEWHERE CLASSIFIED 05/04/2019 PIERO SOUSA MD Ot L97.512 NON-PRS CHRONIC ULCER OTH PRT RIGHT FOOT 05/04/2019 PIERO SOUSA MD Ot L97.522 NON-PRS CHRONIC ULCER OTH PRT LEFT FOOT 05/04/2019 PIERO SOUSA MD Ot M32.19 OTH ORGAN OR SYSTEM INVOLV IN SYSTEMIC L 05/04/2019 PIERO SOUSA MD Ot N18 .4 CHRONIC KIDNEY DISEASE, STAGE 4 (SEVERE) 05/04/2019 PIERO SOUSA MD Ot T65.222A TOXIC EFFECT OF TOBACCO CIGARETTES, SELF 05/04/2019 PIERO SOUSA MD Ot F17.218 NICOTINE DEPENDENCE, CIGARETTES, W OTH D 05/04/2019 PIERO SOUSA MD Ot I70.235 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 05/04/2019 PIERO SOUSA MD Ot I70.245 ATHSCL [place] ARTERIES OF LEFT LEG W [facility] 05/04/2019 PIERO SOUSA MD Ot I96 GANGRENE, NOT ELSEWHERE CLASSIFIED 05/04/2019 PIERO SOUSA MD Ot L97.512 NON-PRS CHRONIC ULCER OTH PRT RIGHT FOOT 05/04/2019 PIERO SOUSA MD Ot L97.522 NON-PRS CHRONIC ULCER OTH PRT LEFT FOOT 05/04/2019 PIERO SOUSA MD Ot M32.19 OTH ORGAN OR SYSTEM INVOLV IN SYSTEMIC L 05/04/2019 PIERO SOUSA MD Ot N18 .4 CHRONIC KIDNEY DISEASE, STAGE 4 (SEVERE) 05/04/2019 PIERO SOUSA MD Ot T65.222A TOXIC EFFECT OF TOBACCO CIGARETTES, SELF 05/04/2019 PIERO SOUSA MD Ot F17.218 NICOTINE DEPENDENCE, CIGARETTES, W OTH D 05/04/2019 PIERO SOUSA MD Ot I70.235 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 UL 05/04/2019 PIERO SOUSA MD Ot I96 GANGRENE, NOT ELSEWHERE CLASSIFIED 05/04/2019 IPERO SOUSA MD, Ot L97.512 NON-PRS CHRONIC ULCER OTH PRT RIGHT FOOT 05/04/2019 PIERO SOUSA MD Ot M32.19 OTH ORGAN OR SYSTEM INVOLV IN SYSTEMIC L 05/04/2019 PIERO SOUSA MD Ot N18 .4 CHRONIC KIDNEY DISEASE, STAGE 4 (SEVERE) 05/04/2019 PIERO SOUSA MD Ot T65.222A TOXIC EFFECT OF TOBACCO CIGARETTES, SELF 05/06/2019 DEL REAL DO, SERINA Ot E78.00 PURE HYPERCHOLESTEROLEMIA, UNSPECIFIED 05/06/2019 DEL REAL DO, SERINA Ot E78.5 HYPERLIPIDEMIA, UNSPECIFIED 05/06/2019 DEL REAL DO, SERINA Ot F41.9 ANXIETY DISORDER, UNSPECIFIED 05/06/2019 DEL REAL DO, SERINA Ot I12.9 HYPERTENSIVE CHRONIC KIDNEY DISEASE W ST 05/06/2019 DEL REAL DO, SERINA Ot I25.10 ATHSCL HEART DISEASE OF [place] CORONARY 05/06/2019 DEL REAL DO, SERINA Ot I82.3 EMBOLISM AND THROMBOSIS OF RENAL VEIN 05/06/2019 DEL REAL DO, SERINA Ot L93.0 DISCOID LUPUS ERYTHEMATOSUS 05/06/2019 DEL REAL DO, SERINA Ot M10.9 GOUT, UNSPECIFIED 05/06/2019 DEL REAL DO, SERINA Ot N17.9 ACUTE KIDNEY FAILURE, UNSPECIFIED 05/06/2019 DEL REAL DO, SERINA Ot N18.9 CHRONIC KIDNEY DISEASE, UNSPECIFIED 05/06/2019 DEL REAL DO, SERINA Ot Z77.22 CNTCT W AND EXPSR TO ENVIRON TOBACCO SMO 05/06/2019 DEL REAL DO SERINA Ot 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 05/06/2019 DEL REAL DO SERINA Ot Z79.2 RESIDENTIAL (CURRENT) USE OF ANTIBIOTICS 05/06/2019 DEL REAL DO, SERINA Ot 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 05/06/2019 DEL REAL DO, SERINA Ot Z79.89 1 RESIDENTIAL (CURRENT) USE OF OPIATE ANALGE 05/06/2019 DEL REAL DO, SERINA Ot Z79.89 9 OTHER RESIDENTIAL (CURRENT) DRUG THERAPY 05/06/2019 DEL REAL DO SERINA Ot Z86.73 PRSNL HX OF TIA (TIA), AND CEREB INFRC W 05/06/2019 DEL REAL DO SERINA Ot 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 05/06/2019 DEL REAL DO, SERINA Ot Z92.21 PERSONAL HISTORY OF ANTINEOPLASTIC CHEMO 05/06/2019 DEL REAL DO, SERINA Ot Z92.3 PERSONAL HISTORY OF IRRADIATION 05/06/2019 DEL REAL DO, SERINA Ot E78.00 PURE HYPERCHOLESTEROLEMIA, UNSPECIFIED 05/06/2019 DEL REAL DO, SERINA Ot E78.5 HYPERLIPIDEMIA, UNSPECIFIED 05/06/2019 DEL REAL DO, SERINA Ot F41.9 ANXIETY DISORDER, UNSPECIFIED 05/06/2019 DEL REAL DO, SERINA Ot I12.9 HYPERTENSIVE CHRONIC KIDNEY DISEASE W ST 05/06/2019 DEL REAL DO, SERINA Ot I25.10 ATHSCL HEART DISEASE OF [place] CORONARY 05/06/2019 DEL REAL DO, SERINA Ot I82.3 EMBOLISM AND THROMBOSIS OF RENAL VEIN 05/06/2019 DEL REAL DO, SERINA Ot L93.0 DISCOID LUPUS ERYTHEMATOSUS 05/06/2019 DEL REAL DO, SERINA Ot M10.9 GOUT, UNSPECIFIED 05/06/2019 DEL REAL DO, SERINA Ot N17.9 ACUTE KIDNEY FAILURE, UNSPECIFIED 05/06/2019 DEL REAL DO, SERINA Ot N18.9 CHRONIC KIDNEY DISEASE, UNSPECIFIED 05/06/2019 DEL REAL DO, SERINA Ot Z77.22 CNTCT W AND EXPSR TO ENVIRON TOBACCO SMO 05/06/2019 DEL REALEFREN PORTILLO SERINA Ot 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 05/06/2019 GT PORTILLO SERINA Ot 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 05/06/2019 DEL REAL DO SERINA Ot Z79.82 RESIDENTIAL (CURRENT) USE OF ASPIRIN 05/06/2019 DEL REAL DO SERINA Ot Z79.89 1 RESIDENTIAL (CURRENT) USE OF OPIATE ANALGE 05/06/2019 GT PORTILLO SERINA Ot Z79.89 9 OTHER RESIDENTIAL (CURRENT) DRUG THERAPY 05/06/2019 DEL REALEFREN PORTILLO SERINA Ot Z86.73 PRSNL HX OF TIA (TIA), AND CEREB INFRC W 05/06/2019 GT PORTILLO SERINA Ot 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 05/06/2019 GT PORTILLO SERINA Ot Z92.21 PERSONAL HISTORY OF ANTINEOPLASTIC CHEMO 05/06/2019 GT PORTILLO SERINA Ot Z92.3 PERSONAL HISTORY OF IRRADIATION Procedures Code Description [place] [address] MAMM OGRAM DX, RIGHT 04/13/2012 73539 MAMM OGRAM, SCREENING 04/14/2012 53524 ROUT INE VENIPUNCTURE 05/12/2012 70456 LIPI D PANEL 05/12/2012 16099 CBC 05/12/2012 71608 CMP 05/12/2012 [id number] GF R CALC (RESULT ONLY) 05/12/2012 20463 TSH 05/12/2012 42531 TRIG JOSY POINT INJ/1-2 MUS 07/14/2012 38369 ROUT INE VENIPUNCTURE 08/10/2012 67339 CMP 08/10/2012 80444 LIPI D PANEL 08/10/2012 [id number] GF R CALC (RESULT ONLY) 08/10/2012 88750 CULT URE URINE 09/21/2012 08999 UA W / CULTURE IF INDICATED 09/21/2012 62911 ROUT INE VENIPUNCTURE 11/24/2012 87699 MARQUITA L PROFILE 11/24/2012 03961 LIPI D PANEL 11/24/2012 60092 MAGNESIUM 11/24/2012 [id number] GF R CALC (RESULT ONLY) 11/24/2012 PRO/CRE UR INE PROTEIN TO CREATNINE RATIO 11/24/2012 Piero Reynolds 11/30/2012 20638 ROUT INE VENIPUNCTURE 01/22/2013 48258 CRP 01/22/2013 77409 RA FACTOR 01/23/2013 ANAANA SOPHIE ANALYZER (SCREEN) 01/23/2013 97551 CCP ANTIBODY 01/23/[address] SOPHIE (RESULT ONLY) 01/25/2013 [id number] IN T DNA (RESULT ONLY) 01/25/2013 [id number] IN T MICHELINE (RESULT ONLY) 01/25/2013 05625 DNA ANTIBODY (DOUBLE STRAND) 01/26/2013 70011 MICHELINE SCR 01/26/2013 34350 JOIN T INJECTION- LARGE JOINT (SPECIFY MEDCIN DESCRIPTION) 02/22 23612 ROUT INE VENIPUNCTURE 02/24/2013 09682 EYE EXAM PERFORMED 02/24/2013 01384 CBC 02/24/2013 25358 INFL UENZA A & B (IN-HOUSE) 03/11/2013 82713 EYE EXAM PERFORMED 03/29/2013 95928 OXIMETRY 04/19/2013 82041 OXIMETRY 05/05/2013 68604 ROUT INE VENIPUNCTURE 2013 22716 CBC 2013 70258 UA W / CULTURE IF INDICATED 09/13/2013 07041 INFL UENZA A & B (IN-HOUSE) 05/04/2014 64912 OXIMETRY 05/04/2014 Results Test Result Range Complete blood count (CBC) with automate d white blood cell (WBC) differential - 05/24/16 13:30 Blood leukocytes automated count (number/volume) 10.5 10*3/uL 4.3-11.0 Blood erythrocytes automated count (number/volume) 5.14 10*6/uL 4.35-5.85 Venous blood hemoglobin measurement (mass/volume) 15.2 g/dL 11.5-16.0 Blood hematocrit (volume fraction) 45 % 35-52 Automated erythrocyte mean corpuscular volume 88 [ foz_us] 80-99 Automated erythrocyte mean corpuscular h emoglobin (mass per erythrocyte) 30 pg 25-34 Automated erythrocyte mean corpuscular h emoglobin concentration measurement (mass/volume) 34 g/dL 32-36 Automated erythrocyte distribution width ratio 13. 7 % 10.0- 14.5 Automated blood platelet count [...] 10*3 1.0-4.0 Blood monocytes automated count (number/volume) 0. 5 10*3 0.0-1.0 Automated eosinophil count 0.0 10*3/uL 0 .0-0.3 Automated blood basophil count (count/volume) 0.0 10*3/uL 0.0-0.1 Comprehensive metabolic panel - 05/24/16 13:30 Serum or plasma sodium measurement (moles/volume) 141 mmol/L 135-145 Serum or plasma potassium measurement (moles/volume) 4.0 mmol/L 3.6-5.0 Serum or plasma chloride measurement (moles/volume) 108 mmol/L 98-107 Carbon dioxide 21 mmol/L 21-32 Serum or plasma anion gap determination (moles/volume) 12 mmol/L 5-14 Serum or plasma urea nitrogen measurement (mass/volume ) 14 mg/dL 7-18 Serum or plasma creatinine measurement (mass/volume) 0.96 mg/dL 0.60-1.30 Serum or plasma urea nitrogen/creatinine mass ratio 15 NRG Serum or plasma creatinine measurement w ith calculation of estimated glomerular filtration rate 58 NRG Serum or plasma glucose measurement (mass/volume) 115 mg/dL 70-105 Serum or plasma calcium measurement (mass/volume) 9.2 mg/dL 8.5-10.1 Serum or plasma total bilirubin measurement (mass/volu me) 0.5 mg/dL 0.1-1.0 Serum or plasma alkaline phosphatase yazmin surement (enzymatic activity/volume) 68 U/L 40-136 Serum or plasma aspartate aminotransfera se measurement (enzymatic activity/volume) 15 U/L 5-34 Serum or plasma alanine aminotransferase measurement (enzymatic activity/volume) 18 U/L 0-55 Serum or plasma protein measurement (mass/volume) 6.8 g/dL 6.4-8.2 Serum or plasma albumin measurement (mass/volume) 4.1 g/dL 3.2-4.5 Lipase - 05/24/16 13:30 Lipase 15 U/L 8-78 Blood manual differential performed dete ction - 05/24/16 13:30 Blood monocytes/100 leukocytes 3 % NRG Manual blood segmented neutrophils/100 leukocytes 89 % NRG Blood band neutrophils/100 leukocytes 0 % NRG Manual blood lymphocytes/100 leukocytes 7 % NRG Manual eosinophils/100 leukocytes in nose 1 % NRG Manual blood basophils/100 leukocytes 0 % NRG Blood erythrocyte morphology finding identification NORMAL NRG Complete urinalysis with reflex to cultu re - 05/24/16 14:15 Urine color determination YELLOW NRG Urine clarity determination CLEAR NR G Urine pH measurement by test strip 6 5-9 Specific gravity of urine by test strip 1.010 1.016-1.022 Urine protein assay by test strip, semi-quantitative NEGATIVE NEGATIVE Urine glucose detection by automated test strip NE GATIVE NEGATIVE Erythrocytes detection in urine sediment by light micr oscopy NEGATIVE NEGATIVE Urine ketones detection by automated test strip NE GATIVE NEGATIVE Urine nitrite detection by test strip NEGATIVE NEGATIVE Urine total bilirubin detection by test strip NEGA TIVE NEGATIVE Urine urobilinogen measurement by automated test strip (mass/volume) NORMAL NORMAL Urine leukocyte esterase detection by dipstick NEG ATIVE NEGATIVE Automated urine sediment erythrocyte cou nt by microscopy (number/high power field) NONE NRG Automated urine sediment leukocyte count by microscopy (number/high power field) NONE NRG Bacteria detection in urine sediment by light microsco py NEGATIVE NRG Squamous epithelial cells detection in u rine sediment by light microscopy 10-25 NRG Crystals detection in urine sediment by light microsco py NONE NRG Casts detection in urine sediment [...] ISOMERS - 06/25/17 19:08 Prescribed Drug 1 [place](TM) NRG COMMENT NRG Amphetamine NEGATIVE ng/mL <250 medMATCH Amphetamine CONSISTENT NRG Methamphetamine NEGATIVE ng/mL <250 medMATCH Methamphetamine CONSISTENT NRG Complete blood count (CBC) with automate d white blood cell (WBC) differential - 08/07/17 13:45 Blood leukocytes automated count (number/volume) 13.4 10*3/uL 4.3-11.0 Blood erythrocytes automated count (number/volume) 5.21 10*6/uL 4.35-5.85 Venous blood hemoglobin measurement (mass/volume) 14.9 g/dL 11.5-16.0 Blood hematocrit (volume fraction) 45 % 35-52 Automated erythrocyte mean corpuscular volume 86 [ foz_us] 80-99 Automated erythrocyte mean corpuscular h emoglobin (mass per erythrocyte) 29 pg 25-34 Automated erythrocyte mean corpuscular h emoglobin concentration measurement (mass/volume) 33 g/dL 32-36 Automated erythrocyte distribution width ratio 14. 5 % 10.0- 14.5 Automated blood platelet count [...] 10*3 1.0-4.0 Blood monocytes automated count (number/volume) 0. 7 10*3 0.0-1.0 Automated eosinophil count 0.1 10*3/uL 0 .0-0.3 Automated blood basophil count (count/volume) 0.0 10*3/uL 0.0-0.1 PT panel in platelet poor plasma by coag ulation assay - 08/07/17 13:45 Prothrombin time (PT) in platelet poor plasma by coagu lation assay 13.2 s 12.2-14.7 INR in platelet poor plasma or blood by coagulation as say 1.0 0.8-1.4 Activated partial thromboplastin time (a PTT) in platelet poor plasma bycoagulation assay - 08/07/17 13:45 Activated partial thromboplastin time (a PTT) in platelet poor plasma bycoagulation assay 25 s 24-35 Comprehensive metabolic panel - 08/07/17 13:45 Serum or plasma sodium measurement (moles/volume) 140 mmol/L 135-145 Serum or plasma potassium measurement (moles/volume) 3.9 mmol/L 3.6-5.0 Serum or plasma chloride measurement (moles/volume) 108 mmol/L 98-107 Carbon dioxide 18 mmol/L 21-32 Serum or plasma anion gap determination (moles/volume) 14 mmol/L 5-14 Serum or plasma urea nitrogen measurement (mass/volume ) 13 mg/dL 7-18 Serum or plasma creatinine measurement (mass/volume) 1.01 mg/dL 0.60-1.30 Serum or plasma urea nitrogen/creatinine mass ratio 13 NRG Serum or plasma creatinine measurement w ith calculation of estimated glomerular filtration rate 54 NRG Serum or plasma glucose measurement (mass/volume) 145 mg/dL 70-105 Serum or plasma calcium measurement (mass/volume) 9.4 mg/dL 8.5-10.1 Serum or plasma total bilirubin measurement (mass/volu me) 0.4 mg/dL 0.1-1.0 Serum or plasma alkaline phosphatase yazmin surement (enzymatic activity/volume) 76 U/L 40-136 Serum or plasma aspartate aminotransfera se measurement (enzymatic activity/volume) 15 U/L 5-34 Serum or plasma alanine aminotransferase measurement (enzymatic activity/volume) 12 U/L 0-55 Serum or plasma protein measurement (mass/volume) 7.0 g/dL 6.4-8.2 Serum or plasma albumin measurement (mass/volume) 3.9 g/dL 3.2-4.5 Magnesium - 08/07/17 13:45 Magnesium 2.0 mg/dL 1.8-2.4 Serum or plasma troponin i.cardiac measu rement (mass/volume) - 08/07/17 13:45 Serum or plasma troponin i.cardiac measurement (mass/v olume) < ng/mL <0.30 Serum or plasma lithium measurement (mol es/volume) - 08/07/17 13:45 BNP level 298.6 pg/mL <100.0 Myoglobin, serum - 08/07/17 13:45 Myoglobin, serum 59.2 ng/mL 10.0-92.0 Serum or plasma troponin i.cardiac measu rement (mass/volume) - 08/07/17 16:23 Serum or plasma troponin i.cardiac measurement (mass/v olume) < ng/mL <0.30 Complete blood count (CBC) with automate d white blood cell (WBC) differential - 12/19/17 08:20 Blood leukocytes automated count (number/volume) 15.2 10*3/uL 4.3-11.0 Blood erythrocytes automated count (number/volume) 4.66 10*6/uL 4.35-5.85 Venous blood hemoglobin measurement (mass/volume) 14.1 g/dL 11.5-16.0 Blood hematocrit (volume fraction) 40 % 35-52 Automated erythrocyte mean corpuscular volume 86 [ foz_us] 80-99 Automated erythrocyte mean corpuscular h emoglobin (mass per erythrocyte) 30 pg 25-34 Automated erythrocyte mean corpuscular h emoglobin concentration measurement (mass/volume) 35 g/dL 32-36 Automated erythrocyte distribution width ratio 14. 8 % 10.0- 14.5 Automated blood platelet count [...] 10*3 1.0-4.0 Blood monocytes automated count (number/volume) 1. 3 10*3 0.0-1.0 Automated eosinophil count 0.2 10*3/uL 0 .0-0.3 Automated blood basophil count (count/volume) 0.0 10*3/uL 0.0-0.1 Complete urinalysis with reflex to cultu re - 12/19/17 08:20 Urine color determination YELLOW NRG Urine clarity determination CLEAR NR G Urine pH measurement by test strip 6 5-9 Specific gravity of urine by test strip 1.015 1.016-1.022 Urine protein assay by test strip, semi-quantitative 1+ NEGATIVE Urine glucose detection by automated test strip NE GATIVE NEGATIVE Erythrocytes detection in urine sediment by light micr oscopy NEGATIVE NEGATIVE Urine ketones detection by automated test strip NE GATIVE NEGATIVE Urine nitrite detection by test strip NEGATIVE NEGATIVE Urine total bilirubin detection by test strip NEGA TIVE NEGATIVE Urine urobilinogen measurement by automated test strip (mass/volume) NORMAL NORMAL Urine leukocyte esterase detection by dipstick NEG ATIVE NEGATIVE Automated urine sediment erythrocyte cou nt by microscopy (number/high power field) NONE NRG Automated urine sediment leukocyte count by microscopy (number/high power field) NONE NRG Bacteria detection in urine sediment by light microsco py NEGATIVE NRG Squamous epithelial cells detection in u rine sediment by light microscopy NONE NRG Crystals detection in urine sediment by light microsco py NONE NRG Casts detection in urine sediment [...] 5-14 Serum or plasma urea nitrogen measurement (mass/volume ) 18 mg/dL 7-18 Serum or plasma creatinine measurement (mass/volume) 1.16 mg/dL 0.60-1.30 Serum or plasma urea nitrogen/creatinine mass ratio 16 NRG Serum or plasma creatinine measurement w ith calculation of estimated glomerular filtration rate 46 NRG Serum or plasma glucose measurement (mass/volume) 116 mg/dL 70-105 Serum or plasma calcium measurement (mass/volume) 8.9 mg/dL 8.5-10.1 Serum or plasma total bilirubin measurement (mass/volu me) 1.0 mg/dL 0.1-1.0 Serum or plasma alkaline phosphatase yazmin surement (enzymatic activity/volume) 70 U/L 40-136 Serum or plasma aspartate aminotransfera se measurement (enzymatic activity/volume) 34 U/L 5-34 Serum or plasma alanine aminotransferase measurement (enzymatic activity/volume) 24 U/L 0-55 Serum or plasma protein measurement (mass/volume) 6.9 g/dL 6.4-8.2 Serum or plasma albumin measurement (mass/volume) 3.7 g/dL 3.2-4.5 CALCIUM CORRECTED 9.1 mg/dL 8.5-10.1 Serum or plasma troponin i.cardiac measu rement (mass/volume) - 12/19/17 08:20 Serum or plasma troponin i.cardiac measurement (mass/v olume) < ng/mL <0.30 Blood manual differential performed dete ction - 12/19/17 08:20 Blood monocytes/100 leukocytes 7 [...] PT panel in platelet poor plasma by coag ulation assay - 12/19/17 08:20 Prothrombin time (PT) in platelet poor plasma by coagu lation assay 13.7 s 12.2-14.7 INR in platelet poor plasma or blood by coagulation as say 1.1 0.8-1.4 Serum or plasma creatine kinase MB measu rement (enzymatic activity/volume) - 12/19/17 08:20 Serum or plasma creatine kinase MB measu rement (enzymatic activity/volume) 1.9 ng/mL <6.6 Myoglobin, serum - 12/19/17 08:20 Myoglobin, serum 181.1 ng/mL 10.0-92.0 Blood lactic acid measurement (moles/vol ume) - 12/19/17 09:19 Blood lactic acid measurement (moles/volume) 2.35 mmol/L 0.50-2.00 Bacterial blood culture - 12/19/17 09:19 QUANTITY OF GROWTH Isolated NRG Bacterial blood culture [id number] NRG Bacterial blood culture - 12/19/17 09:24 Bacterial blood culture NG NRG PDM - 09 PANEL (PROFILE 1) - 01/30/18 11 :08 Prescribed Drug 1 Hydrocodone NRG Creatinine 147.6 mg/dL > or = 20.0 pH 7.22 4.5 - 9.0 Oxidant NEGATIVE [...] CONSISTENT NRG Complete urinalysis with reflex to cultu re - 02/12/18 00:50 Urine color determination YELLOW NRG Urine clarity determination SL CLOUDY N RG Urine pH measurement by test strip 5 5-9 Specific gravity of urine by test strip 1.025 1.016-1.022 Urine protein assay by test strip, semi-quantitative 2+ NEGATIVE Urine glucose detection by automated test strip NE GATIVE NEGATIVE Erythrocytes detection in urine sediment by light micr oscopy 5+ NEGATIVE Urine ketones detection by automated test strip NE GATIVE NEGATIVE Urine nitrite detection by test strip NEGATIVE NEGATIVE Urine total bilirubin detection by test strip NEGA TIVE NEGATIVE Urine urobilinogen measurement by automated test strip (mass/volume) 1 mg/dL NORMAL Urine leukocyte esterase detection by dipstick 2+ NEGATIVE Automated urine sediment erythrocyte cou nt by microscopy (number/high power field) [HPF] NRG Automated urine sediment leukocyte count by microscopy (number/high power field) [HPF] NRG Bacteria detection in urine sediment by light microsco py MODERATE NRG Squamous epithelial cells detection in u rine sediment by light microscopy 2-5 NRG Crystals detection in urine sediment by light microsco py NONE NRG Casts detection in urine sediment by light microscopy NONE NRG Mucus detection in urine sediment by light microscopy NEGATIVE NRG Complete urinalysis with reflex to culture YES NRG Bacterial urine culture - 02/12/18 00:50 Bacterial urine culture SEE COMMEN NRG COLONY COUNT . NRG Complete blood count (CBC) with automate d white blood cell (WBC) differential - 02/12/18 01:15 Blood leukocytes automated count (number/volume) 9.9 10*3/uL 4.3-11.0 Blood erythrocytes automated count (number/volume) 4.24 10*6/uL 4.35-5.85 Venous blood hemoglobin measurement (mass/volume) 12.4 g/dL 11.5-16.0 Blood hematocrit (volume fraction) 38 % 35-52 Automated erythrocyte mean corpuscular volume 91 [ foz_us] 80-99 Automated erythrocyte mean corpuscular h emoglobin (mass per erythrocyte) 29 pg 25-34 Automated erythrocyte mean corpuscular h emoglobin concentration measurement (mass/volume) 32 g/dL 32-36 Automated erythrocyte distribution width ratio 15. 5 % 10.0- 14.5 Automated blood platelet count [...] 10*3 1.0-4.0 Blood monocytes automated count (number/volume) 0. 5 10*3 0.0-1.0 Automated eosinophil count 0.0 10*3/uL 0 .0-0.3 Automated blood basophil count (count/volume) 0.0 10*3/uL 0.0-0.1 PT panel in platelet poor plasma by coag ulation assay - 02/12/18 01:15 Prothrombin time (PT) in platelet poor plasma by coagu lation assay 17.5 s 12.2-14.7 INR in platelet poor plasma or blood by coagulation as say 1.4 0.8-1.4 Activated partial thromboplastin time (a PTT) in platelet poor plasma bycoagulation assay - 02/12/18 01:15 Activated partial thromboplastin time (a PTT) in platelet poor plasma bycoagulation assay 25 s 24-35 Comprehensive metabolic panel - 02/12/18 01:15 Serum or plasma sodium measurement (moles/volume) 141 mmol/L 135-145 Serum or plasma potassium measurement (moles/volume) 4.3 mmol/L 3.6-5.0 Serum or plasma chloride measurement (moles/volume) 110 mmol/L 98-107 Carbon dioxide 17 mmol/L 21-32 Serum or plasma anion gap determination (moles/volume) 14 mmol/L 5-14 Serum or plasma urea nitrogen measurement (mass/volume ) 29 mg/dL 7-18 Serum or plasma creatinine measurement (mass/volume) 1.66 mg/dL 0.60-1.30 Serum or plasma urea nitrogen/creatinine mass ratio 17 NRG Serum or plasma creatinine measurement w ith calculation of estimated glomerular filtration rate 31 NRG Serum or plasma glucose measurement (mass/volume) 120 mg/dL 70-105 Serum or plasma calcium measurement (mass/volume) 9.0 mg/dL 8.5-10.1 Serum or plasma total bilirubin measurement (mass/volu me) 0.4 mg/dL 0.1-1.0 Serum or plasma alkaline phosphatase yazmin surement (enzymatic activity/volume) 77 U/L 40-136 Serum or plasma aspartate aminotransfera se measurement (enzymatic activity/volume) 18 U/L 5-34 Serum or plasma alanine aminotransferase measurement (enzymatic activity/volume) 19 U/L 0-55 Serum or plasma protein measurement (mass/volume) 6.5 g/dL 6.4-8.2 Serum or plasma albumin measurement (mass/volume) 3.9 g/dL 3.2-4.5 CALCIUM CORRECTED 9.1 mg/dL 8.5-10.1 Complete blood count (CBC) with automate d white blood cell (WBC) differential - 05/09/18 21:06 Blood leukocytes automated count (number/volume) 12.8 10*3/uL 4.3-11.0 Blood erythrocytes automated count (number/volume) 4.98 10*6/uL 4.35-5.85 Venous blood hemoglobin measurement (mass/volume) 14.4 g/dL 11.5-16.0 Blood hematocrit (volume fraction) 44 % 35-52 Automated erythrocyte mean corpuscular volume 88 [ foz_us] 80-99 Automated erythrocyte mean corpuscular h emoglobin (mass per erythrocyte) 29 pg 25-34 Automated erythrocyte mean corpuscular h emoglobin concentration measurement (mass/volume) 33 g/dL 32-36 Automated erythrocyte distribution width ratio 13. 5 % 10.0- 14.5 Automated blood platelet count [...] 10*3 1.0-4.0 Blood monocytes automated count (number/volume) 1. 2 10*3 0.0-1.0 Automated eosinophil count 0.2 10*3/uL 0 .0-0.3 Automated blood basophil count (count/volume) 0.0 10*3/uL 0.0-0.1 Fibrin D-dimer FEU measurement in platel et poor plasma (mass/volume) - 05/09/18 21:06 Fibrin [...] 5-14 Serum or plasma urea nitrogen measurement (mass/volume ) 19 mg/dL 7-18 Serum or plasma creatinine measurement (mass/volume) 1.62 mg/dL 0.60-1.30 Serum or plasma urea nitrogen/creatinine mass ratio 12 NRG Serum or plasma creatinine measurement w ith calculation of estimated glomerular filtration rate 31 NRG Serum or plasma glucose measurement (mass/volume) 90 mg/dL 70-105 Serum or plasma calcium measurement (mass/volume) 9.9 mg/dL 8.5-10.1 Serum or plasma total bilirubin measurement (mass/volu me) 0.6 mg/dL 0.1-1.0 Serum or plasma alkaline phosphatase yazmin surement (enzymatic activity/volume) 111 U/L 40-136 Serum or plasma aspartate aminotransfera se measurement (enzymatic activity/volume) 26 U/L 5-34 Serum or plasma alanine aminotransferase measurement (enzymatic activity/volume) 24 U/L 0-55 Serum or plasma protein measurement (mass/volume) 7.1 g/dL 6.4-8.2 Serum or plasma albumin measurement (mass/volume) 3.7 g/dL 3.2-4.5 CALCIUM CORRECTED 10.1 mg/dL 8.5-10.1 Serum or plasma uric acid measurement (m ass/volume) - 05/09/18 21:06 Serum or plasma uric acid measurement (mass/volume) 7.8 mg/dL 2.6-7.2 Serum or plasma C reactive protein measu rement (mass/volume) - 05/09/18 21:06 Serum or plasma C reactive protein measurement (mass/v olume) 7.69 mg/dL 0.00-0.50 PT panel in platelet poor plasma by coag ulation assay - 05/09/18 21:06 Prothrombin time (PT) in platelet poor plasma by coagu lation assay 19.7 s 12.2-14.7 INR in platelet poor plasma or blood by coagulation as say 1.7 0.8-1.4 Activated partial thromboplastin time (a PTT) in platelet poor plasma bycoagulation assay - 05/09/18 21:06 Activated partial thromboplastin time (a PTT) in platelet poor plasma bycoagulation assay 41 s 24-35 Complete blood count (CBC) with automate d white blood cell (WBC) differential - 07/15/18 12:08 Blood leukocytes automated count (number/volume) 10.7 10*3/uL 4.3-11.0 Blood erythrocytes automated count (number/volume) 4.01 10*6/uL 4.35-5.85 Venous blood hemoglobin measurement (mass/volume) 11.4 g/dL 11.5-16.0 Blood hematocrit (volume fraction) 35 % 35-52 Automated erythrocyte mean corpuscular volume 87 [ foz_us] 80-99 Automated erythrocyte mean corpuscular h emoglobin (mass per erythrocyte) 28 pg 25-34 Automated erythrocyte mean corpuscular h emoglobin concentration measurement (mass/volume) 33 g/dL 32-36 Automated erythrocyte distribution width ratio 15. 7 % 10.0- 14.5 Automated blood platelet count [...] 10*3 1.0-4.0 Blood monocytes automated count (number/volume) 0. 7 10*3 0.0-1.0 Automated eosinophil count 0.1 10*3/uL 0 .0-0.3 Automated blood basophil count (count/volume) 0.0 10*3/uL 0.0-0.1 PT panel in platelet poor plasma by coag ulation assay - 07/15/18 12:08 Prothrombin time (PT) in platelet poor plasma by coagu lation assay 42.9 s 12.2-14.7 INR in platelet poor plasma or blood by coagulation as say 4.3 0.8-1.4 Activated partial thromboplastin time (a PTT) in platelet poor plasma bycoagulation assay - 07/15/18 12:08 Activated partial thromboplastin time (a PTT) in platelet poor plasma bycoagulation assay 46 s 24-35 Comprehensive metabolic panel - 07/15/18 12:08 Serum or plasma sodium measurement (moles/volume) 139 mmol/L 135-145 Serum or plasma potassium measurement (moles/volume) 3.1 mmol/L 3.6-5.0 Serum or plasma chloride measurement (moles/volume) 103 mmol/L 98-107 Carbon dioxide 24 mmol/L 21-32 Serum or plasma anion gap determination (moles/volume) 12 mmol/L 5-14 Serum or plasma urea nitrogen measurement (mass/volume ) 15 mg/dL 7-18 Serum or plasma creatinine measurement (mass/volume) 0.99 mg/dL 0.60-1.30 Serum or plasma urea nitrogen/creatinine mass ratio 15 NRG Serum or plasma creatinine measurement w ith calculation of estimated glomerular filtration rate 55 NRG Serum or plasma glucose measurement (mass/volume) 98 mg/dL 70-105 Serum or plasma calcium measurement (mass/volume) 8.9 mg/dL 8.5-10.1 Serum or plasma total bilirubin measurement (mass/volu me) 0.5 mg/dL 0.1-1.0 Serum or plasma alkaline phosphatase yazmin surement (enzymatic activity/volume) 82 U/L 40-136 Serum or plasma aspartate aminotransfera se measurement (enzymatic activity/volume) 14 U/L 5-34 Serum or plasma alanine aminotransferase measurement (enzymatic activity/volume) 15 U/L 0-55 Serum or plasma protein measurement (mass/volume) 6.3 g/dL 6.4-8.2 Serum or plasma albumin measurement (mass/volume) 3.4 g/dL 3.2-4.5 CALCIUM CORRECTED 9.4 mg/dL 8.5-10.1 Blood manual differential performed dete ction - 07/15/18 12:08 Blood monocytes/100 leukocytes 2 % NRG Manual blood segmented neutrophils/100 leukocytes 86 % NRG Blood band neutrophils/100 leukocytes 5 % NRG Manual blood lymphocytes/100 leukocytes 5 % NRG Manual eosinophils/100 leukocytes in nose 2 % NRG Manual blood basophils/100 leukocytes 0 % NRG Blood erythrocyte morphology finding identification NORMAL NRG Complete urinalysis with reflex to cultu re - 07/15/18 12:34 Urine color determination YELLOW NRG Urine clarity determination CLEAR NR G Urine pH measurement by test strip 7 5-9 Specific gravity of urine by test strip 1.010 1.016-1.022 Urine protein assay by test strip, semi-quantitative 1+ NEGATIVE Urine glucose detection by automated test strip NE GATIVE NEGATIVE Erythrocytes detection in urine sediment by light micr oscopy 2+ NEGATIVE Urine ketones detection by automated test strip NE GATIVE NEGATIVE Urine nitrite detection by test strip POSITIVE NEGATIVE Urine total bilirubin detection by test strip NEGA TIVE NEGATIVE Urine urobilinogen measurement by automated test strip (mass/volume) 1 mg/dL NORMAL Urine leukocyte esterase detection by dipstick 3+ NEGATIVE Automated urine sediment erythrocyte cou nt by microscopy (number/high power field) [HPF] NRG Automated urine sediment leukocyte count by microscopy (number/high power field) [HPF] NRG Bacteria detection in urine sediment by light microsco py LARGE NRG Squamous epithelial cells detection in u rine sediment by light microscopy 2-5 NRG Crystals detection in urine sediment by light microsco py NONE NRG Casts detection in urine sediment by light microscopy NONE NRG Mucus detection in urine sediment by light microscopy NEGATIVE NRG Complete urinalysis with reflex to culture YES NRG Bacterial urine culture - 07/15/18 12:34 Bacterial urine culture [id number] NRG COLONY COUNT >100,000/ML NRG RML Sensitivity Panel - 07/15/18 12:34 Gentamicin susceptibility test by minimum inhibitory c oncentration <= NRG Trimethoprim/sulfamethoxazole susceptibi lity test by minimum inhibitoryconcentration <= NRG Levofloxacin susceptibility test by minimum inhibitory concentration <= NRG Ampicillin susceptibility test by minimum inhibitory c oncentration <= NRG Cefazolin susceptibility test by minimum inhibitory co ncentration <= NRG Ceftriaxone susceptibility test by minimum inhibitory concentration <= NRG Ciprofloxacin susceptibility test by minimum inhibitor y concentration <= NRG Meropenem susceptibility test by minimum inhibitory co ncentration <= NRG Nitrofurantoin susceptibility test by mi nimum inhibitory concentration 32 NRG Amoxicillin and clavulanate potassium susc TEE <= NRG Lipid 1996 panel - 07/16/18 04:25 Serum or plasma triglyceride measurement (mass/volume) 132 mg/dL <150 Serum or plasma cholesterol measurement (mass/volume) 177 mg/dL < 200 Serum or plasma cholesterol in HDL measurement (mass/v olume) 38 mg/dL 40-60 Cholesterol in LDL [mass/volume] in serum or plasma by direct assay 113 mg/dL 1-129 Serum or plasma cholesterol in VLDL measurement (mass/ volume) 26 mg/dL 5-40 THYROID STIMULATING HORMONE - 07/16/18 0 4:25 THYROID STIMULATING HORMONE 1.62 u[iU]/mL 0.35-4.94 Complete blood count (CBC) with automate d white blood cell (WBC) differential - 07/16/18 10:25 Blood leukocytes automated count (number/volume) 10.0 10*3/uL 4.3-11.0 Blood erythrocytes automated count (number/volume) 4.26 10*6/uL 4.35-5.85 Venous blood hemoglobin measurement (mass/volume) 12.0 g/dL 11.5-16.0 Blood hematocrit (volume fraction) 37 % 35-52 Automated erythrocyte mean corpuscular volume 87 [ foz_us] 80-99 Automated erythrocyte mean corpuscular h emoglobin (mass per erythrocyte) 28 pg 25-34 Automated erythrocyte mean corpuscular h emoglobin concentration measurement (mass/volume) 32 g/dL 32-36 Automated erythrocyte distribution width ratio 15. 9 % 10.0- 14.5 Automated blood platelet count [...] 10*3 1.0-4.0 Blood monocytes automated count (number/volume) 0. 9 10*3 0.0-1.0 Automated eosinophil count 0.2 10*3/uL 0 .0-0.3 Automated blood basophil count (count/volume) 0.0 10*3/uL 0.0-0.1 PT panel in platelet poor plasma by coag ulation assay - 07/16/18 10:25 Prothrombin time (PT) in platelet poor plasma by coagu lation assay 28.1 s 12.2-14.7 INR in platelet poor plasma or blood by coagulation as say 2.5 0.8-1.4 Comprehensive metabolic panel - 07/16/18 10:25 Serum or plasma sodium measurement (moles/volume) 140 mmol/L 135-145 Serum or plasma potassium measurement (moles/volume) 3.0 mmol/L 3.6-5.0 Serum or plasma chloride measurement (moles/volume) 105 mmol/L 98-107 Carbon dioxide 24 mmol/L 21-32 Serum or plasma anion gap determination (moles/volume) 11 mmol/L 5-14 Serum or plasma urea nitrogen measurement (mass/volume ) 16 mg/dL 7-18 Serum or plasma creatinine measurement (mass/volume) 1.25 mg/dL 0.60-1.30 Serum or plasma urea nitrogen/creatinine mass ratio 13 NRG Serum or plasma creatinine measurement w ith calculation of estimated glomerular filtration rate 42 NRG Serum or plasma glucose measurement (mass/volume) 95 mg/dL 70-105 Serum or plasma calcium measurement (mass/volume) 9.3 mg/dL 8.5-10.1 Serum or plasma total bilirubin measurement (mass/volu me) 0.5 mg/dL 0.1-1.0 Serum or plasma alkaline phosphatase yazmin surement (enzymatic activity/volume) 81 U/L 40-136 Serum or plasma aspartate aminotransfera se measurement (enzymatic activity/volume) 15 U/L 5-34 Serum or plasma alanine aminotransferase measurement (enzymatic activity/volume) 16 U/L 0-55 Serum or plasma protein measurement (mass/volume) 6.3 g/dL 6.4-8.2 Serum or plasma albumin measurement (mass/volume) 3.5 g/dL 3.2-4.5 CALCIUM CORRECTED 9.7 mg/dL 8.5-10.1 Complete blood count (CBC) with automate d white blood cell (WBC) differential - 07/17/18 05:28 Blood leukocytes automated count (number/volume) 9.1 10*3/uL 4.3-11.0 Blood erythrocytes automated count (number/volume) 4.29 10*6/uL 4.35-5.85 Venous blood hemoglobin measurement (mass/volume) 12.1 g/dL 11.5-16.0 Blood hematocrit (volume fraction) 38 % 35-52 Automated erythrocyte mean corpuscular volume 88 [ foz_us] 80-99 Automated erythrocyte mean corpuscular h emoglobin (mass per erythrocyte) 28 pg 25-34 Automated erythrocyte mean corpuscular h emoglobin concentration measurement (mass/volume) 32 g/dL 32-36 Automated erythrocyte distribution width ratio 15. 9 % 10.0- 14.5 Automated blood platelet count [...] 10*3 1.0-4.0 Blood monocytes automated count (number/volume) 0. 6 10*3 0.0-1.0 Automated eosinophil count 0.1 10*3/uL 0 .0-0.3 Automated blood basophil count (count/volume) 0.0 10*3/uL 0.0-0.1 PT panel in platelet poor plasma by coag ulation assay - 07/17/18 05:28 Prothrombin time (PT) in platelet poor plasma by coagu lation assay 23.0 s 12.2-14.7 INR in platelet poor plasma or blood by coagulation as say 1.9 0.8-1.4 Comprehensive metabolic panel - 07/17/18 05:28 Serum or plasma sodium measurement (moles/volume) 140 mmol/L 135-145 Serum or plasma potassium measurement (moles/volume) 3.5 mmol/L 3.6-5.0 Serum or plasma chloride measurement (moles/volume) 107 mmol/L 98-107 Carbon dioxide 20 mmol/L 21-32 Serum or plasma anion gap determination (moles/volume) 13 mmol/L 5-14 Serum or plasma urea nitrogen measurement (mass/volume ) 18 mg/dL 7-18 Serum or plasma creatinine measurement (mass/volume) 1.25 mg/dL 0.60-1.30 Serum or plasma urea nitrogen/creatinine mass ratio 14 NRG Serum or plasma creatinine measurement w ith calculation of estimated glomerular filtration rate 42 NRG Serum or plasma glucose measurement (mass/volume) 98 mg/dL 70-105 Serum or plasma calcium measurement (mass/volume) 9.2 mg/dL 8.5-10.1 Serum or plasma total bilirubin measurement (mass/volu me) 0.6 mg/dL 0.1-1.0 Serum or plasma alkaline phosphatase yazmin surement (enzymatic activity/volume) 76 U/L 40-136 Serum or plasma aspartate aminotransfera se measurement (enzymatic activity/volume) 15 U/L 5-34 Serum or plasma alanine aminotransferase measurement (enzymatic activity/volume) 15 U/L 0-55 Serum or plasma protein measurement (mass/volume) 6.2 g/dL 6.4-8.2 Serum or plasma albumin measurement (mass/volume) 3.4 g/dL 3.2-4.5 CALCIUM CORRECTED 9.7 mg/dL 8.5-10.1 Magnesium - 07/17/18 05:28 Magnesium 1.7 mg/dL 1.8-2.4 Complete blood count (CBC) with automate d white blood cell (WBC) differential - 07/18/18 04:40 Blood leukocytes automated count (number/volume) 7.1 10*3/uL 4.3-11.0 Blood erythrocytes automated count (number/volume) 3.96 10*6/uL 4.35-5.85 Venous blood hemoglobin measurement (mass/volume) 11.0 g/dL 11.5-16.0 Blood hematocrit (volume fraction) 35 % 35-52 Automated erythrocyte mean corpuscular volume 89 [ foz_us] 80-99 Automated erythrocyte mean corpuscular h emoglobin (mass per erythrocyte) 28 pg 25-34 Automated erythrocyte mean corpuscular h emoglobin concentration measurement (mass/volume) 31 g/dL 32-36 Automated erythrocyte distribution width ratio 15. 8 % 10.0- 14.5 Automated blood platelet count [...] 10*3 1.0-4.0 Blood monocytes automated count (number/volume) 0. 7 10*3 0.0-1.0 Automated eosinophil count 0.2 10*3/uL 0 .0-0.3 Automated blood basophil count (count/volume) 0.0 10*3/uL 0.0-0.1 PT panel in platelet poor plasma by coag ulation assay - 07/18/18 04:40 Prothrombin time (PT) in platelet poor plasma by coagu lation assay 23.2 s 12.2-14.7 INR in platelet poor plasma or blood by coagulation as say 2.0 0.8-1.4 Comprehensive metabolic panel - 07/18/18 04:40 Serum or plasma sodium measurement (moles/volume) 139 mmol/L 135-145 Serum or plasma potassium measurement (moles/volume) 3.9 mmol/L 3.6-5.0 Serum or plasma chloride measurement (moles/volume) 107 mmol/L 98-107 Carbon dioxide 21 mmol/L 21-32 Serum or plasma anion gap determination (moles/volume) 11 mmol/L 5-14 Serum or plasma urea nitrogen measurement (mass/volume ) 24 mg/dL 7-18 Serum or plasma creatinine measurement (mass/volume) 1.29 mg/dL 0.60-1.30 Serum or plasma urea nitrogen/creatinine mass ratio 19 NRG Serum or plasma creatinine measurement w ith calculation of estimated glomerular filtration rate 41 NRG Serum or plasma glucose measurement (mass/volume) 86 mg/dL 70-105 Serum or plasma calcium measurement (mass/volume) 9.0 mg/dL 8.5-10.1 Serum or plasma total bilirubin measurement (mass/volu me) 0.4 mg/dL 0.1-1.0 Serum or plasma alkaline phosphatase yazmin surement (enzymatic activity/volume) 70 U/L 40-136 Serum or plasma aspartate aminotransfera se measurement (enzymatic activity/volume) 15 U/L 5-34 Serum or plasma alanine aminotransferase measurement (enzymatic activity/volume) 11 U/L 0-55 Serum or plasma protein measurement (mass/volume) 5.9 g/dL 6.4-8.2 Serum or plasma albumin measurement (mass/volume) 3.4 g/dL 3.2-4.5 CALCIUM CORRECTED 9.5 mg/dL 8.5-10.1 PT panel in platelet poor plasma by coag ulation assay - 07/19/18 05:52 Prothrombin time (PT) in platelet poor plasma by coagu lation assay 30.9 s 12.2-14.7 INR in platelet poor plasma or blood by coagulation as say 2.8 0.8-1.4 PT panel in platelet poor plasma by coag ulation assay - 07/20/18 06:23 Prothrombin time (PT) in platelet poor plasma by coagu lation assay 37.2 s 12.2-14.7 INR in platelet poor plasma or blood by coagulation as say 3.6 0.8-1.4 PT panel in platelet poor plasma by coag ulation assay - 07/21/18 06:10 Prothrombin time (PT) in platelet poor plasma by coagu lation assay 38.0 s 12.2-14.7 INR in platelet poor plasma or blood by coagulation as say 3.7 0.8-1.4 Complete blood count (CBC) with automate d white blood cell (WBC) differential - 07/21/18 09:16 Blood leukocytes automated count (number/volume) 10.1 10*3/uL 4.3-11.0 Blood erythrocytes automated count (number/volume) 4.10 10*6/uL 4.35-5.85 Venous blood hemoglobin measurement (mass/volume) 11.5 g/dL 11.5-16.0 Blood hematocrit (volume fraction) 37 % 35-52 Automated erythrocyte mean corpuscular volume 89 [ foz_us] 80-99 Automated erythrocyte mean corpuscular h emoglobin (mass per erythrocyte) 28 pg 25-34 Automated erythrocyte mean corpuscular h emoglobin concentration measurement (mass/volume) 31 g/dL 32-36 Automated erythrocyte distribution width ratio 16. 0 % 10.0- 14.5 Automated blood platelet count [...] 10*3 1.0-4.0 Blood monocytes automated count (number/volume) 0. 4 10*3 0.0-1.0 Automated eosinophil count 0.1 10*3/uL 0 .0-0.3 Automated blood basophil count (count/volume) 0.0 10*3/uL 0.0-0.1 Comprehensive metabolic panel - 07/21/18 09:16 Serum or plasma sodium measurement (moles/volume) 142 mmol/L 135-145 Serum or plasma potassium measurement (moles/volume) 4.0 mmol/L 3.6-5.0 Serum or plasma chloride measurement (moles/volume) 107 mmol/L 98-107 Carbon dioxide 23 mmol/L 21-32 Serum or plasma anion gap determination (moles/volume) 12 mmol/L 5-14 Serum or plasma urea nitrogen measurement (mass/volume ) 24 mg/dL 7-18 Serum or plasma creatinine measurement (mass/volume) 1.37 mg/dL 0.60-1.30 Serum or plasma urea nitrogen/creatinine mass ratio 18 NRG Serum or plasma creatinine measurement w ith calculation of estimated glomerular filtration rate 38 NRG Serum or plasma glucose measurement (mass/volume) 110 mg/dL 70-105 Serum or plasma calcium measurement (mass/volume) 9.4 mg/dL 8.5-10.1 Serum or plasma total bilirubin measurement (mass/volu me) 0.4 mg/dL 0.1-1.0 Serum or plasma alkaline phosphatase yazmin surement (enzymatic activity/volume) 72 U/L 40-136 Serum or plasma aspartate aminotransfera se measurement (enzymatic activity/volume) 18 U/L 5-34 Serum or plasma alanine aminotransferase measurement (enzymatic activity/volume) 14 U/L 0-55 Serum or plasma protein measurement (mass/volume) 6.4 g/dL 6.4-8.2 Serum or plasma albumin measurement (mass/volume) 3.7 g/dL 3.2-4.5 CALCIUM CORRECTED 9.6 mg/dL 8.5-10.1 Automated blood complete blood count (he mogram) panel - 07/22/18 06:45 Blood leukocytes automated count (number/volume) 8.5 10*3/uL 4.3-11.0 Blood erythrocytes automated count (number/volume) 4.03 10*6/uL 4.35-5.85 Venous blood hemoglobin measurement (mass/volume) 11.3 g/dL 11.5-16.0 Blood hematocrit (volume fraction) 36 % 35-52 Automated erythrocyte mean corpuscular volume 90 [ foz_us] 80-99 Automated erythrocyte mean corpuscular h emoglobin (mass per erythrocyte) 28 pg 25-34 Automated erythrocyte mean corpuscular h emoglobin concentration measurement (mass/volume) 31 g/dL 32-36 Automated erythrocyte distribution width ratio 15. 6 % 10.0- 14.5 Automated blood platelet count (count/volume) 298 10*3/uL 130-400 Automated blood platelet mean volume measurement 10.4 [foz_us] 7.4-10.4 PT panel in platelet poor plasma by coag ulation assay - 07/22/18 06:45 Prothrombin time (PT) in platelet poor plasma by coagu lation assay 31.5 s 12.2-14.7 INR in platelet poor plasma or blood by coagulation as say 2.9 0.8-1.4 Comprehensive metabolic panel - 07/22/18 06:45 Serum or plasma sodium measurement (moles/volume) 141 mmol/L 135-145 Serum or plasma potassium measurement (moles/volume) 3.9 mmol/L 3.6-5.0 Serum or plasma chloride measurement (moles/volume) 107 mmol/L 98-107 Carbon dioxide 22 mmol/L 21-32 Serum or plasma anion gap determination (moles/volume) 12 mmol/L 5-14 Serum or plasma urea nitrogen measurement (mass/volume ) 27 mg/dL 7-18 Serum or plasma creatinine measurement (mass/volume) 1.40 mg/dL 0.60-1.30 Serum or plasma urea nitrogen/creatinine mass ratio 19 NRG Serum or plasma creatinine measurement w ith calculation of estimated glomerular filtration rate 37 NRG Serum or plasma glucose measurement (mass/volume) 84 mg/dL 70-105 Serum or plasma calcium measurement (mass/volume) 9.0 mg/dL 8.5-10.1 Serum or plasma total bilirubin measurement (mass/volu me) 0.4 mg/dL 0.1-1.0 Serum or plasma alkaline phosphatase yazmin surement (enzymatic activity/volume) 70 U/L 40-136 Serum or plasma aspartate aminotransfera se measurement (enzymatic activity/volume) 17 U/L 5-34 Serum or plasma alanine aminotransferase measurement (enzymatic activity/volume) 16 U/L 0-55 Serum or plasma protein measurement (mass/volume) 5.9 g/dL 6.4-8.2 Serum or plasma albumin measurement (mass/volume) 3.6 g/dL 3.2-4.5 CALCIUM CORRECTED 9.3 mg/dL 8.5-10.1 PT panel in platelet poor plasma by coag ulation assay - 07/23/18 12:22 Prothrombin time (PT) in platelet poor plasma by coagu lation assay 26.9 s 12.2-14.7 INR in platelet poor plasma or blood by coagulation as say 2.4 0.8-1.4 PT panel in platelet poor plasma by coag ulation assay - 07/24/18 05:55 Prothrombin time (PT) in platelet poor plasma by coagu lation assay 28.9 s 12.2-14.7 INR in platelet poor plasma or blood by coagulation as say 2.6 0.8-1.4 PT panel in platelet poor plasma by coag ulation assay - 07/25/18 06:28 Prothrombin time (PT) in platelet poor plasma by coagu lation assay 35.6 s 12.2-14.7 INR in platelet poor plasma or blood by coagulation as say 3.4 0.8-1.4 PT panel in platelet poor plasma by coag ulation assay - 07/26/18 05:41 Prothrombin time (PT) in platelet poor plasma by coagu lation assay 41.6 s 12.2-14.7 INR in platelet poor plasma or blood by coagulation as say 4.1 0.8-1.4 Complete blood count (CBC) with automate d white blood cell (WBC) differential - 07/27/18 05:10 Blood leukocytes automated count (number/volume) 8.7 10*3/uL 4.3-11.0 Blood erythrocytes automated count (number/volume) 3.58 10*6/uL 4.35-5.85 Venous blood hemoglobin measurement (mass/volume) 10.1 g/dL 11.5-16.0 Blood hematocrit (volume fraction) 32 % 35-52 Automated erythrocyte mean corpuscular volume 90 [ foz_us] 80-99 Automated erythrocyte mean corpuscular h emoglobin (mass per erythrocyte) 28 pg 25-34 Automated erythrocyte mean corpuscular h emoglobin concentration measurement (mass/volume) 32 g/dL 32-36 Automated erythrocyte distribution width ratio 15. 7 % 10.0- 14.5 Automated blood platelet count [...] 10*3 1.0-4.0 Blood monocytes automated count (number/volume) 0. 8 10*3 0.0-1.0 Automated eosinophil count 0.2 10*3/uL 0 .0-0.3 Automated blood basophil count (count/volume) 0.0 10*3/uL 0.0-0.1 PT panel in platelet poor plasma by coag ulation assay - 07/27/18 05:10 Prothrombin time (PT) in platelet poor plasma by coagu lation assay 30.2 s 12.2-14.7 INR in platelet poor plasma or blood by coagulation as say 2.7 0.8-1.4 Comprehensive metabolic panel - 07/27/18 05:10 Serum or plasma sodium measurement (moles/volume) 141 mmol/L 135-145 Serum or plasma potassium measurement (moles/volume) 3.8 mmol/L 3.6-5.0 Serum or plasma chloride measurement (moles/volume) 109 mmol/L 98-107 Carbon dioxide 23 mmol/L 21-32 Serum or plasma anion gap determination (moles/volume) 9 mmol/L 5-14 Serum or plasma urea nitrogen measurement (mass/volume ) 28 mg/dL 7-18 Serum or plasma creatinine measurement (mass/volume) 1.23 mg/dL 0.60-1.30 Serum or plasma urea nitrogen/creatinine mass ratio 23 NRG Serum or plasma creatinine measurement w ith calculation of estimated glomerular filtration rate 43 NRG Serum or plasma glucose measurement (mass/volume) 79 mg/dL 70-105 Serum or plasma calcium measurement (mass/volume) 8.9 mg/dL 8.5-10.1 Serum or plasma total bilirubin measurement (mass/volu me) 0.4 mg/dL 0.1-1.0 Serum or plasma alkaline phosphatase yazmin surement (enzymatic activity/volume) 60 U/L 40-136 Serum or plasma aspartate aminotransfera se measurement (enzymatic activity/volume) 17 U/L 5-34 Serum or plasma alanine aminotransferase measurement (enzymatic activity/volume) 14 U/L 0-55 Serum or plasma protein measurement (mass/volume) 5.6 g/dL 6.4-8.2 Serum or plasma albumin measurement (mass/volume) 3.4 g/dL 3.2-4.5 CALCIUM CORRECTED 9.4 mg/dL 8.5-10.1 PT panel in platelet poor plasma by coag ulation assay - 07/28/18 07:00 Prothrombin time (PT) in platelet poor plasma by coagu lation assay 24.6 s 12.2-14.7 INR in platelet poor plasma or blood by coagulation as say 2.1 0.8-1.4 PT panel in platelet poor plasma by coag ulation assay - 07/29/18 06:45 Prothrombin time (PT) in platelet poor plasma by coagu lation assay 25.6 s 12.2-14.7 INR in platelet poor plasma or blood by coagulation as say 2.2 0.8-1.4 PT panel in platelet poor plasma by coag ulation assay - 07/30/18 05:49 Prothrombin time (PT) in platelet poor plasma by coagu lation assay 30.3 s 12.2-14.7 INR in platelet poor plasma or blood by coagulation as say 2.7 0.8-1.4 PT panel in platelet poor plasma by coag ulation assay - 07/31/18 07:15 Prothrombin time (PT) in platelet poor plasma by coagu lation assay 31.5 s 12.2-14.7 INR in platelet poor plasma or blood by coagulation as say 2.9 0.8-1.4 CMP - 08/13/18 10:23 GLUCOSE 86 mg/dL 65-99 UREA NITROGEN (BUN) 16 mg/dL 7-25 CREATININE 1.51 mg/dL 0.60-0.93 eGFR NON-AFR. CITIZEN OF [place] 34 mL/min/1.73m2 > OR = 60 eGFR 40 mL/min/1.73m2 > OR = 60 BUN/CREATININE RATIO 11 (calc) 6-22 SODIUM 138 mmol/L 135-146 POTASSIUM 3.9 mmol/L 3.5-5.3 CHLORIDE 105 mmol/L 98-110 CARBON DIOXIDE 20 mmol/L 20-32 CALCIUM 8.9 mg/dL 8.6-10.4 PROTEIN, TOTAL 6.1 g/dL 6.1-8.1 ALBUMIN 3.7 g/dL 3.6-5.1 GLOBULIN 2.4 g/dL (calc) 1.9-3.7 ALBUMIN/GLOBULIN RATIO 1.5 (calc) 1.0-2. 5 BILIRUBIN, TOTAL 0.6 mg/dL 0.2-1.2 ALKALINE PHOSPHATASE 79 U/L 33-130 AST 12 U/L 10-35 ALT 11 U/L 6-29 CBC - 08/13/18 10:23 WHITE BLOOD CELL COUNT 11.6 Thousand/uL 3.8-10.8 RED BLOOD CELL COUNT 4.29 Million/uL 3.8 0-5.10 HEMOGLOBIN 12.1 g/dL 11.7-15.5 HEMATOCRIT 38.0 % 35.0-45.0 MCV 88.6 fL 80.0-100.0 MCH 28.2 pg 27.0-33.0 MCHC 31.8 g/dL 32.0-36.0 RDW 14.3 % 11.0-15.0 PLATELET COUNT 305 Thousand/uL 140-400 MPV 10.7 fL 7.5-12.5 ABSOLUTE NEUTROPHILS 9025 cells/uL 1500- 7800 ABSOLUTE LYMPHOCYTES 1485 cells/uL 850-3 900 ABSOLUTE MONOCYTES 754 cells/uL 200-950 ABSOLUTE EOSINOPHILS 278 cells/uL 15-500 ABSOLUTE BASOPHILS 58 cells/uL 0-200 NEUTROPHILS 77.8 % NRG LYMPHOCYTES 12.8 % NRG MONOCYTES 6.5 % NRG EOSINOPHILS 2.4 % NRG BASOPHILS 0.5 % NRG TSH - 08/13/18 10:23 TSH 3.82 mIU/L 0.40-4.50 Complete blood count (CBC) with automate d white blood cell (WBC) differential - 10/30/18 21:12 Blood leukocytes automated count (number/volume) 8.9 10*3/uL 4.3-11.0 Blood erythrocytes automated count (number/volume) 4.25 10*6/uL 4.35-5.85 Venous blood hemoglobin measurement (mass/volume) 12.1 g/dL 11.5-16.0 Blood hematocrit (volume fraction) 38 % 35-52 Automated erythrocyte mean corpuscular volume 90 [ foz_us] 80-99 Automated erythrocyte mean corpuscular h emoglobin (mass per erythrocyte) 29 pg 25-34 Automated erythrocyte mean corpuscular h emoglobin concentration measurement (mass/volume) 32 g/dL 32-36 Automated erythrocyte distribution width ratio 14. 8 % 10.0- 14.5 Automated blood platelet count (count/volume) 253 10*3/uL 130-400 Automated blood platelet mean volume measurement 11.2 [foz_us] 7.4-10.4 Automated blood neutrophils/100 leukocytes 68 % 42-75 Automated blood lymphocytes/100 leukocytes 23 % 12-44 Blood monocytes/100 leukocytes 8 % 0-12 Automated blood eosinophils/100 leukocytes 1 % 0-10 Automated blood basophils/100 leukocytes 0 % 0-10 Blood neutrophils automated count (number/volume) 6.1 10*3 1.8-7.8 Blood lymphocytes automated count (number/volume) 2.0 10*3 1.0-4.0 Blood monocytes automated count (number/volume) 0. 7 10*3 0.0-1.0 Automated eosinophil count 0.1 10*3/uL 0 .0-0.3 Automated blood basophil count (count/volume) 0.0 10*3/uL 0.0-0.1 Comprehensive metabolic panel - 10/30/18 21:12 Serum or plasma sodium measurement (moles/volume) 144 mmol/L 135-145 Serum or plasma potassium measurement (moles/volume) 4.0 mmol/L 3.6-5.0 Serum or plasma chloride measurement (moles/volume) 112 mmol/L 98-107 Carbon dioxide 17 mmol/L 21-32 Serum or plasma anion gap determination (moles/volume) 15 mmol/L 5-14 Serum or plasma urea nitrogen measurement (mass/volume ) 22 mg/dL 7-18 Serum or plasma creatinine measurement (mass/volume) 1.83 mg/dL 0.60-1.30 Serum or plasma urea nitrogen/creatinine mass ratio 12 NRG Serum or plasma creatinine measurement w ith calculation of estimated glomerular filtration rate 27 NRG Serum or plasma glucose measurement (mass/volume) 76 mg/dL 70-105 Serum or plasma calcium measurement (mass/volume) 9.3 mg/dL 8.5-10.1 Serum or plasma total bilirubin measurement (mass/volu me) 0.4 mg/dL 0.1-1.0 Serum or plasma alkaline phosphatase yazmin surement (enzymatic activity/volume) 67 U/L 40-136 Serum or plasma aspartate aminotransfera se measurement (enzymatic activity/volume) 13 U/L 5-34 Serum or plasma alanine aminotransferase measurement (enzymatic activity/volume) 15 U/L 0-55 Serum or plasma protein measurement (mass/volume) 6.5 g/dL 6.4-8.2 Serum or plasma albumin measurement (mass/volume) 3.7 g/dL 3.2-4.5 CALCIUM CORRECTED 9.5 mg/dL 8.5-10.1 Serum or plasma C reactive protein measu rement (mass/volume) - 10/30/18 21:12 Serum or plasma C reactive protein measurement (mass/v olume) 0.05 mg/dL 0.00-0.50 - PANEL (PROFILE 1) - 11/04/18 15 :34 Prescribed Drug 1 [place](TM) NRG Creatinine 90.2 mg/dL > or = 20.0 pH 6.99 4.5 - 9.0 Oxidant NEGATIVE mcg/mL <200 [...] ng/mL <50 medMATCH Codeine CONSISTENT NRG Hydrocodone 473 ng/mL <50 medMATCH Hydrocodone CONSISTENT NRG Hydromorphone 72 ng/mL <50 medMATCH Hydromorphone CONSISTENT NRG Morphine NEGATIVE ng/mL <50 medMATCH Morphine CONSISTENT NRG Norhydrocodone 520 ng/mL <50 medMATCH Norhydrocodone CONSISTENT NRG Barbiturates NEGATIVE ng/mL <300 medMATCH Barbiturates CONSISTENT NRG Methadone Metabolite NEGATIVE ng/mL <100 medMATCH Methadone Metab CONSISTENT NRG Phencyclidine NEGATIVE ng/mL <25 medMATCH Phencyclidine CONSISTENT NRG Complete blood count (CBC) with automate d white blood cell (WBC) differential - 12/21/18 10:40 Blood leukocytes automated count (number/volume) 12.4 10*3/uL 4.3-11.0 Blood erythrocytes automated count (number/volume) 4.50 10*6/uL 4.35-5.85 Venous blood hemoglobin measurement (mass/volume) 12.6 g/dL 11.5-16.0 Blood hematocrit (volume fraction) 40 % 35-52 Automated erythrocyte mean corpuscular volume 88 [ foz_us] 80-99 Automated erythrocyte mean corpuscular h emoglobin (mass per erythrocyte) 28 pg 25-34 Automated erythrocyte mean corpuscular h emoglobin concentration measurement (mass/volume) 32 g/dL 32-36 Automated erythrocyte distribution width ratio 15. 1 % 10.0- 14.5 Automated blood platelet count (count/volume) 300 10*3/uL 130-400 Automated blood platelet mean volume measurement 11.3 [foz_us] 7.4-10.4 Automated blood neutrophils/100 leukocytes 81 % 42-75 Automated blood lymphocytes/100 leukocytes 7 % 12-44 Blood monocytes/100 leukocytes 10 % 0-12 Automated blood eosinophils/100 leukocytes 2 % 0-10 Automated blood basophils/100 leukocytes 0 % 0-10 Blood neutrophils automated count (number/volume) 10.0 10*3 1.8-7.8 Blood lymphocytes automated count (number/volume) 0.9 10*3 1.0-4.0 Blood monocytes automated count (number/volume) 1. 2 10*3 0.0-1.0 Automated eosinophil count 0.2 10*3/uL 0 .0-0.3 Automated blood basophil count (count/volume) 0.0 10*3/uL 0.0-0.1 Comprehensive metabolic panel - 12/21/18 10:40 Serum or plasma sodium measurement (moles/volume) 139 mmol/L 135-145 Serum or plasma potassium measurement (moles/volume) 4.0 mmol/L 3.6-5.0 Serum or plasma chloride measurement (moles/volume) 105 mmol/L 98-107 Carbon dioxide 22 mmol/L 21-32 Serum or plasma anion gap determination (moles/volume) 12 mmol/L 5-14 Serum or plasma urea nitrogen measurement (mass/volume ) 14 mg/dL 7-18 Serum or plasma creatinine measurement (mass/volume) 1.65 mg/dL 0.60-1.30 Serum or plasma urea nitrogen/creatinine mass ratio 8 NRG Serum or plasma creatinine measurement w ith calculation of estimated glomerular filtration rate 31 NRG Serum or plasma glucose measurement (mass/volume) 102 mg/dL 70-105 Serum or plasma calcium measurement (mass/volume) 9.4 mg/dL 8.5-10.1 Serum or plasma total bilirubin measurement (mass/volu me) 1.0 mg/dL 0.1-1.0 Serum or plasma alkaline phosphatase yazmin surement (enzymatic activity/volume) 89 U/L 40-136 Serum or plasma aspartate aminotransfera se measurement (enzymatic activity/volume) 19 U/L 5-34 Serum or plasma alanine aminotransferase measurement (enzymatic activity/volume) 11 U/L 0-55 Serum or plasma protein measurement (mass/volume) 7.5 g/dL 6.4-8.2 Serum or plasma albumin measurement (mass/volume) 3.6 g/dL 3.2-4.5 CALCIUM CORRECTED 9.7 mg/dL 8.5-10.1 Serum or plasma uric acid measurement (m ass/volume) - 12/21/18 10:40 Serum or plasma uric acid measurement (mass/volume) 8.2 mg/dL 2.6-7.2 Serum or plasma C reactive protein measu rement (mass/volume) - 12/21/18 10:40 Serum or plasma C reactive protein measurement (mass/v olume) 2.16 mg/dL 0.00-0.50 Manual absolute plasma cell count - 11/24 10:40 Blood monocytes/100 leukocytes 3 % NRG Manual blood segmented neutrophils/100 leukocytes 89 % NRG Blood band neutrophils/100 leukocytes 0 % NRG Manual blood lymphocytes/100 leukocytes 7 % NRG Manual eosinophils/100 leukocytes in nose 1 % NRG Manual blood basophils/100 leukocytes 0 % NRG Blood erythrocyte morphology finding identification NORMAL NRG Gram stain microscopy - 12/21/18 10:40 Gram stain microscopy No bacteria seen NRG Bacterial blood culture - 12/21/18 10:40 Bacterial blood culture NG NRG Bacteria identification in wound by cult ure - 12/21/18 10:40 Bacteria identification in wound by culture [id number] NRG FREE TEXT EXTERNAL SMALL AMOUNT NRG QUANTITY OF GROWTH . NRG FREE TEXT ENTRY 2 METHICILLIN-SENSITIVE STAPH OSCAR US NRG Dirithromycin susceptibility test by dis k diffusion - 12/21/18 10:40 Oxacillin susceptibility test by minimum inhibitory co ncentration 0.5 NRG Clindamycin susceptibility test by minimum inhibitory concentration <= NRG Erythromycin susceptibility test by minimum inhibitory concentration <= NRG Trimethoprim/sulfamethoxazole susceptibi lity test by minimum inhibitoryconcentration <= NRG Vancomycin susceptibility test by minimum inhibitory c oncentration 1 NRG Levofloxacin susceptibility test by minimum inhibitory concentration <= NRG Rifampin susceptibility test by minimum inhibitory con centration <= NRG Cefazolin susceptibility test by minimum inhibitory co ncentration <= NRG Linezolid susceptibility test by minimum inhibitory co ncentration 2 NRG Penicillin G susceptibility test by minimum inhibitory concentration > NRG Moxifloxacin susceptibility test by minimum inhibitory concentration <= NRG Minocycline susc TEE <= NRG Blood lactic acid measurement (moles/vol ume) - 12/21/18 13:01 Blood lactic acid measurement (moles/volume) 1.51 mmol/L 0.50-2.00 PT panel in platelet poor plasma by coag ulation assay - 12/21/18 13:01 Prothrombin time (PT) in platelet poor plasma by coagu lation assay 22.4 s 12.2-14.7 INR in platelet poor plasma or blood by coagulation as say 1.9 0.8-1.4 Activated partial thromboplastin time (a PTT) in platelet poor plasma bycoagulation assay - 12/21/18 13:01 Activated partial thromboplastin time (a PTT) in platelet poor plasma bycoagulation assay 35 s 24-35 Bacterial blood culture - 12/21/18 13:01 Bacterial blood culture NG NRG Complete urinalysis with reflex to cultu re - 12/21/18 13:21 Urine color determination YELLOW NRG Urine clarity determination CLEAR NR G Urine pH measurement by test strip 5 5-9 Specific gravity of urine by test strip 1.025 1.016-1.022 Urine protein assay by test strip, semi-quantitative 2+ NEGATIVE Urine glucose detection by automated test strip NE GATIVE NEGATIVE Erythrocytes detection in urine sediment by light micr oscopy 2+ NEGATIVE Urine ketones detection by automated test strip 1+ NEGATIVE Urine nitrite detection by test strip POSITIVE NEGATIVE Urine total bilirubin detection by test strip NEGA TIVE NEGATIVE Urine urobilinogen measurement by automated test strip (mass/volume) 1 mg/dL NORMAL Urine leukocyte esterase detection by dipstick 3+ NEGATIVE Automated urine sediment erythrocyte cou nt by microscopy (number/high power field) [HPF] NRG Automated urine sediment leukocyte count by microscopy (number/high power field) TNTC NRG Bacteria detection in urine sediment by light microsco py LARGE NRG Squamous epithelial cells detection in u rine sediment by light microscopy NONE NRG Crystals detection in urine sediment by light microsco py NONE NRG Casts detection in urine sediment by light microscopy NONE NRG Mucus detection in urine sediment by light microscopy NEGATIVE NRG Complete urinalysis with reflex to culture YES NRG Bacterial urine culture - 12/21/18 13:21 Bacterial urine culture [id number] NRG COLONY COUNT >100,000/ML NRG FTX;REPORTABLE SUSCEPTIBILITY REPORTED 12/23/18 10: 05 NRG FREE TEXT ENTRY 2 PLUS MIXED BACTERIA KATRIN NRG Dirithromycin susceptibility test by dis k diffusion - 12/21/18 13:21 Gentamicin susceptibility test by minimum inhibitory c oncentration <= NRG Trimethoprim/sulfamethoxazole susceptibi lity test by minimum inhibitoryconcentration <= NRG Levofloxacin susceptibility test by minimum inhibitory concentration <= NRG Ampicillin susceptibility test by minimum inhibitory c oncentration <= NRG Cefazolin susceptibility test by minimum inhibitory co ncentration <= NRG Ceftriaxone susceptibility test by minimum inhibitory concentration <= NRG Ciprofloxacin susceptibility test by minimum inhibitor y concentration <= NRG Meropenem susceptibility test by minimum inhibitory co ncentration <= NRG Nitrofurantoin susceptibility test by mi nimum inhibitory concentration <= NRG Amoxicillin and clavulanate potassium susc TEE <= NRG Automated blood complete blood count (he mogram) panel - 12/22/18 05:40 Blood leukocytes automated count (number/volume) 9.6 10*3/uL 4.3-11.0 Blood erythrocytes automated count (number/volume) 3.59 10*6/uL 4.35-5.85 Venous blood hemoglobin measurement (mass/volume) 10.2 g/dL 11.5-16.0 Blood hematocrit (volume fraction) 32 % 35-52 Automated erythrocyte mean corpuscular volume 90 [ foz_us] 80-99 Automated erythrocyte mean corpuscular h emoglobin (mass per erythrocyte) 28 pg 25-34 Automated erythrocyte mean corpuscular h emoglobin concentration measurement (mass/volume) 32 g/dL 32-36 Automated erythrocyte distribution width ratio 14. 9 % 10.0- 14.5 Automated blood platelet count (count/volume) 223 10*3/uL 130-400 Automated blood platelet mean volume measurement 11.7 [foz_us] 7.4-10.4 Comprehensive metabolic panel - 12/22/18 05:40 Serum or plasma sodium measurement (moles/volume) 142 mmol/L 135-145 Serum or plasma potassium measurement (moles/volume) 3.5 mmol/L 3.6-5.0 Serum or plasma chloride measurement (moles/volume) 115 mmol/L 98-107 Carbon dioxide 19 mmol/L 21-32 Serum or plasma anion gap determination (moles/volume) 8 mmol/L 5-14 Serum or plasma urea nitrogen measurement (mass/volume ) 16 mg/dL 7-18 Serum or plasma creatinine measurement (mass/volume) 1.54 mg/dL 0.60-1.30 Serum or plasma urea nitrogen/creatinine mass ratio 10 NRG Serum or plasma creatinine measurement w ith calculation of estimated glomerular filtration rate 33 NRG Serum or plasma glucose measurement (mass/volume) 94 mg/dL 70-105 Serum or plasma calcium measurement (mass/volume) 7.8 mg/dL 8.5-10.1 Serum or plasma total bilirubin measurement (mass/volu me) 0.5 mg/dL 0.1-1.0 Serum or plasma alkaline phosphatase yazmin surement (enzymatic activity/volume) 72 U/L 40-136 Serum or plasma aspartate aminotransfera se measurement (enzymatic activity/volume) 11 U/L 5-34 Serum or plasma alanine aminotransferase measurement (enzymatic activity/volume) 7 U/L 0-55 Serum or plasma protein measurement (mass/volume) 5.2 g/dL 6.4-8.2 Serum or plasma albumin measurement (mass/volume) 2.9 g/dL 3.2-4.5 CALCIUM CORRECTED 8.7 mg/dL 8.5-10.1 Vancomycin trough - 12/23/18 13:15 Vancomycin trough 12.4 ug/mL 10.0-20.0 Complete urinalysis with reflex to cultu re - 12/25/18 10:20 Urine color determination YELLOW NRG Urine clarity determination CLEAR NR G Urine pH measurement by test strip 6 5-9 Specific gravity of urine by test strip 1.010 1.016-1.022 Urine protein assay by test strip, semi-quantitative 1+ NEGATIVE Urine glucose detection by automated test strip NE GATIVE NEGATIVE Erythrocytes detection in urine sediment by light micr oscopy NEGATIVE NEGATIVE Urine ketones detection by automated test strip NE GATIVE NEGATIVE Urine nitrite detection by test strip NEGATIVE NEGATIVE Urine total bilirubin detection by test strip NEGA TIVE NEGATIVE Urine urobilinogen measurement by automated test strip (mass/volume) NORMAL NORMAL Urine leukocyte esterase detection by dipstick 1+ NEGATIVE Automated urine sediment erythrocyte cou nt by microscopy (number/high power field) RARE NRG Automated urine sediment leukocyte count by microscopy (number/high power field) [HPF] NRG Bacteria detection in urine sediment by light microsco py TRACE NRG Squamous epithelial cells detection in u rine sediment by light microscopy 5-10 NRG Crystals detection in urine sediment by light microsco py NONE NRG Casts detection in urine sediment by light microscopy NONE NRG Mucus detection in urine sediment by light microscopy NEGATIVE NRG Complete urinalysis with reflex to culture YES NRG Yeast detection in urine sediment by light microscopy FEW NRG Bacterial urine culture - 12/25/18 10:20 Bacterial urine culture [id number] NRG COLONY COUNT 10,000 CFU/ML NR Complete blood count (CBC) with automate d white blood cell (WBC) differential - 12/25/18 11:06 Blood leukocytes automated count (number/volume) 9.4 10*3/uL 4.3-11.0 Blood erythrocytes automated count (number/volume) 4.08 10*6/uL 4.35-5.85 Venous blood hemoglobin measurement (mass/volume) 11.4 g/dL 11.5-16.0 Blood hematocrit (volume fraction) 35 % 35-52 Automated erythrocyte mean corpuscular volume 87 [ foz_us] 80-99 Automated erythrocyte mean corpuscular h emoglobin (mass per erythrocyte) 28 pg 25-34 Automated erythrocyte mean corpuscular h emoglobin concentration measurement (mass/volume) 32 g/dL 32-36 Automated erythrocyte distribution width ratio 14. 7 % 10.0- 14.5 Automated blood platelet count (count/volume) 288 10*3/uL 130-400 Automated blood platelet mean volume measurement 10.7 [foz_us] 7.4-10.4 Automated blood neutrophils/100 leukocytes 70 % 42-75 Automated blood lymphocytes/100 leukocytes 17 % 12-44 Blood monocytes/100 leukocytes 10 % 0-12 Automated blood eosinophils/100 leukocytes 3 % 0-10 Automated blood basophils/100 leukocytes 0 % 0-10 Blood neutrophils automated count (number/volume) 6.6 10*3 1.8-7.8 Blood lymphocytes automated count (number/volume) 1.6 10*3 1.0-4.0 Blood monocytes automated count (number/volume) 0. 9 10*3 0.0-1.0 Automated eosinophil count 0.3 10*3/uL 0 .0-0.3 Automated blood basophil count (count/volume) 0.0 10*3/uL 0.0-0.1 Blood lactic acid measurement (moles/vol ume) - 12/25/18 11:06 Blood lactic acid measurement (moles/volume) 1.92 mmol/L 0.50-2.00 Comprehensive metabolic panel - 12/25/18 11:06 Serum or plasma sodium measurement (moles/volume) 144 mmol/L 135-145 Serum or plasma potassium measurement (moles/volume) 2.8 mmol/L 3.6-5.0 Serum or plasma chloride measurement (moles/volume) 110 mmol/L 98-107 Carbon dioxide 20 mmol/L 21-32 Serum or plasma anion gap determination (moles/volume) 14 mmol/L 5-14 Serum or plasma urea nitrogen measurement (mass/volume ) 7 mg/dL 7-18 Serum or plasma creatinine measurement (mass/volume) 1.25 mg/dL 0.60-1.30 Serum or plasma urea nitrogen/creatinine mass ratio 6 NRG Serum or plasma creatinine measurement w ith calculation of estimated glomerular filtration rate 42 NRG Serum or plasma glucose measurement (mass/volume) 83 mg/dL 70-105 Serum or plasma calcium measurement (mass/volume) 8.9 mg/dL 8.5-10.1 Serum or plasma total bilirubin measurement (mass/volu me) 0.4 mg/dL 0.1-1.0 Serum or plasma alkaline phosphatase yazmin surement (enzymatic activity/volume) 70 U/L 40-136 Serum or plasma aspartate aminotransfera se measurement (enzymatic activity/volume) 15 U/L 5-34 Serum or plasma alanine aminotransferase measurement (enzymatic activity/volume) 12 U/L 0-55 Serum or plasma protein measurement (mass/volume) 6.2 g/dL 6.4-8.2 Serum or plasma albumin measurement (mass/volume) 3.3 g/dL 3.2-4.5 CALCIUM CORRECTED 9.5 mg/dL 8.5-10.1 Serum or plasma troponin i.cardiac measu rement (mass/volume) - 12/25/18 11:06 Serum or plasma troponin i.cardiac measurement (mass/v olume) < ng/mL <0.028 Serum or plasma lithium measurement (mol es/volume) - 12/25/18 11:06 BNP PT 956.2 pg/mL <100.0 PT panel in platelet poor plasma by coag ulation assay - 12/25/18 11:06 Prothrombin time (PT) in platelet poor plasma by coagu lation assay 14.2 s 12.2-14.7 INR in platelet poor plasma or blood by coagulation as say 1.1 0.8-1.4 Bacterial blood culture - 12/25/18 11:06 Bacterial blood culture NG NRG Bacterial blood culture - 12/25/18 11:06 Bacterial blood culture NG NRG Vancomycin trough - 12/28/18 10:15 Vancomycin trough 38.1 ug/mL 10.0-20.0 Whole blood basic metabolic panel - 11/09 10:15 Serum or plasma sodium measurement (moles/volume) 144 mmol/L 135-145 Serum or plasma potassium measurement (moles/volume) 3.0 mmol/L 3.6-5.0 Serum or plasma chloride measurement (moles/volume) 112 mmol/L 98-107 Carbon dioxide 21 mmol/L 21-32 Serum or plasma anion gap determination (moles/volume) 11 mmol/L 5-14 Serum or plasma urea nitrogen measurement (mass/volume ) 12 mg/dL 7-18 Serum or plasma creatinine measurement (mass/volume) 2.31 mg/dL 0.60-1.30 Serum or plasma urea nitrogen/creatinine mass ratio 5 NRG Serum or plasma creatinine measurement w ith calculation of estimated glomerular filtration rate 21 NRG Serum or plasma glucose measurement (mass/volume) 94 mg/dL 70-105 Serum or plasma calcium measurement (mass/volume) 8.7 mg/dL 8.5-10.1 Vancomycin trough - 12/29/18 10:15 Vancomycin trough 28.7 ug/mL 10.0-20.0 Whole blood basic metabolic panel - 12/10 10:03 Serum or plasma sodium measurement (moles/volume) 141 mmol/L 135-145 Serum or plasma potassium measurement (moles/volume) 3.5 mmol/L 3.6-5.0 Serum or plasma chloride measurement (moles/volume) 108 mmol/L 98-107 Carbon dioxide 19 mmol/L 21-32 Serum or plasma anion gap determination (moles/volume) 14 mmol/L 5-14 Serum or plasma urea nitrogen measurement (mass/volume ) 12 mg/dL 7-18 Serum or plasma creatinine measurement (mass/volume) 2.26 mg/dL 0.60-1.30 Serum or plasma urea nitrogen/creatinine mass ratio 5 NRG Serum or plasma creatinine measurement w ith calculation of estimated glomerular filtration rate 21 NRG Serum or plasma glucose measurement (mass/volume) 91 mg/dL 70-105 Serum or plasma calcium measurement (mass/volume) 9.1 mg/dL 8.5-10.1 Vancomycin trough - 12/30/18 10:03 Vancomycin trough 24.1 ug/mL 10.0-20.0 Whole blood basic metabolic panel - 12/22 10:17 Serum or plasma sodium measurement (moles/volume) 140 mmol/L 135-145 Serum or plasma potassium measurement (moles/volume) 3.8 mmol/L 3.6-5.0 Serum or plasma chloride measurement (moles/volume) 107 mmol/L 98-107 Carbon dioxide 21 mmol/L 21-32 Serum or plasma anion gap determination (moles/volume) 12 mmol/L 5-14 Serum or plasma urea nitrogen measurement (mass/volume ) 13 mg/dL 7-18 Serum or plasma creatinine measurement (mass/volume) 2.30 mg/dL 0.60-1.30 Serum or plasma urea nitrogen/creatinine mass ratio 6 NRG Serum or plasma creatinine measurement w ith calculation of estimated glomerular filtration rate 21 NRG Serum or plasma glucose measurement (mass/volume) 101 mg/dL 70-105 Serum or plasma calcium measurement (mass/volume) 7.0 mg/dL 8.5-10.1 Vancomycin trough - 12/31/18 10:17 Vancomycin trough 20.0 ug/mL 10.0-20.0 Automated blood complete blood count (he mogram) panel - 01/05/19 11:10 Blood leukocytes automated count (number/volume) 11.4 10*3/uL 4.3-11.0 Blood erythrocytes automated count (number/volume) 3.69 10*6/uL 4.35-5.85 Venous blood hemoglobin measurement (mass/volume) 10.3 g/dL 11.5-16.0 Blood hematocrit (volume fraction) 33 % 35-52 Automated erythrocyte mean corpuscular volume 89 [ foz_us] 80-99 Automated erythrocyte mean corpuscular h emoglobin (mass per erythrocyte) 28 pg 25-34 Automated erythrocyte mean corpuscular h emoglobin concentration measurement (mass/volume) 31 g/dL 32-36 Automated erythrocyte distribution width ratio 14. 7 % 10.0- 14.5 Automated blood platelet count (count/volume) 315 10*3/uL 130-400 Automated blood platelet mean volume measurement 10.8 [foz_us] 7.4-10.4 Comprehensive metabolic panel - 01/05/19 11:10 Serum or plasma sodium measurement (moles/volume) 141 mmol/L 135-145 Serum or plasma potassium measurement (moles/volume) 3.4 mmol/L 3.6-5.0 Serum or plasma chloride measurement (moles/volume) 109 mmol/L 98-107 Carbon dioxide 25 mmol/L 21-32 Serum or plasma anion gap determination (moles/volume) 7 mmol/L 5-14 Serum or plasma urea nitrogen measurement (mass/volume ) 24 mg/dL 7-18 Serum or plasma creatinine measurement (mass/volume) 2.03 mg/dL 0.60-1.30 Serum or plasma urea nitrogen/creatinine mass ratio 12 NRG Serum or plasma creatinine measurement w ith calculation of estimated glomerular filtration rate 24 NRG Serum or plasma glucose measurement (mass/volume) 103 mg/dL 70-105 Serum or plasma calcium measurement (mass/volume) 8.6 mg/dL 8.5-10.1 Serum or plasma total bilirubin measurement (mass/volu me) 0.2 mg/dL 0.1-1.0 Serum or plasma alkaline phosphatase yazmin surement (enzymatic activity/volume) 64 U/L 40-136 Serum or plasma aspartate aminotransfera se measurement (enzymatic activity/volume) 12 U/L 5-34 Serum or plasma alanine aminotransferase measurement (enzymatic activity/volume) 12 U/L 0-55 Serum or plasma protein measurement (mass/volume) 5.9 g/dL 6.4-8.2 Serum or plasma albumin measurement (mass/volume) 3.3 g/dL 3.2-4.5 CALCIUM CORRECTED 9.2 mg/dL 8.5-10.1 [facility] - 03/19/19 11:12 GLUCOSE 83 mg/dL 65-99 UREA NITROGEN (BUN) 33 mg/dL 7-25 CREATININE 1.80 mg/dL 0.60-0.93 eGFR NON-AFR. CITIZ[place] 28 mL/min/1.73m2 > OR = 60 eGFR 32 mL/min/1.73m2 > OR = 60 BUN/CREATININE RATIO 18 (calc) 6-22 SODIUM 144 mmol/L 135-146 POTASSIUM 3.7 mmol/L 3.5-5.3 CHLORIDE 111 mmol/L 98-110 CARBON DIOXIDE 19 mmol/L 20-32 CALCIUM 9.0 mg/dL 8.6-10.4 PROTEIN, TOTAL 6.1 g/dL 6.1-8.1 ALBUMIN 3.8 g/dL 3.6-5.1 GLOBULIN 2.3 g/dL (calc) 1.9-3.7 ALBUMIN/GLOBULIN RATIO 1.7 (calc) 1.0-2. 5 BILIRUBIN, TOTAL 0.4 mg/dL 0.2-1.2 ALKALINE PHOSPHATASE 68 U/L 33-130 AST 12 U/L 10-35 ALT 12 U/L 6-29 Complete urinalysis with reflex to cultu re - 05/04/19 13:13 Urine color determination LATANYA NRG Urine clarity determination SL CLOUDY N RG Urine pH measurement by test strip 5.5 5-9 Specific gravity of urine by test strip >= 1.016-1.022 Urine protein assay by test strip, semi-quantitative TRACE NEGATIVE Urine glucose detection by automated test strip NE GATIVE NEGATIVE Erythrocytes detection in urine sediment by light micr oscopy NEGATIVE NEGATIVE Urine ketones detection by automated test strip NE GATIVE NEGATIVE Urine nitrite detection by test strip NEGATIVE NEGATIVE Urine total bilirubin detection by test strip NEGA TIVE NEGATIVE Urine urobilinogen measurement by automated test strip (mass/volume) 1.0 mg/dL < = 1.0 Urine leukocyte esterase detection by dipstick 1+ NEGATIVE Automated urine sediment erythrocyte cou nt by microscopy (number/high power field) RARE NRG Automated urine sediment leukocyte count by microscopy (number/high power field) [HPF] NRG Bacteria detection in urine sediment by light microsco py MODERATE NRG Squamous epithelial cells detection in u rine sediment by light microscopy >50 NRG Crystals detection in urine sediment by light microsco py NONE NRG Casts detection in urine sediment by light microscopy NONE NRG Mucus detection in urine sediment by light microscopy NEGATIVE NRG Complete urinalysis with reflex to culture YES NRG Bacterial urine culture - 05/04/19 13:13 Bacterial urine culture [id number] NRG COLONY COUNT >100,000/ML NRG FTX;REPORTABLE SEE COMMENT NRG Dirithromycin susceptibility test by dis k diffusion - 05/04/19 13:13 Gentamicin susceptibility test by minimum inhibitory c oncentration <= NRG Trimethoprim/sulfamethoxazole susceptibi lity test by minimum inhibitoryconcentration <= NRG Levofloxacin susceptibility test by minimum inhibitory concentration <= NRG Ampicillin susceptibility test by minimum inhibitory c oncentration <= NRG Cefazolin susceptibility test by minimum inhibitory co ncentration <= NRG Ceftriaxone susceptibility test by minimum inhibitory concentration <= NRG Ciprofloxacin susceptibility test by minimum inhibitor y concentration <= NRG Meropenem susceptibility test by minimum inhibitory co ncentration <= NRG Nitrofurantoin susceptibility test by mi nimum inhibitory concentration 32 NRG Amoxicillin and clavulanate potassium susc TEE <= NRG Complete blood count (CBC) with automate d white blood cell (WBC) differential - 05/04/19 13:22 Blood leukocytes automated count (number/volume) 8.4 10*3/uL 4.3-11.0 Blood erythrocytes automated count (number/volume) 4.14 10*6/uL 4.35-5.85 Venous blood hemoglobin measurement (mass/volume) 11.5 g/dL 11.5-16.0 Blood hematocrit (volume fraction) 36 % 35-52 Automated erythrocyte mean corpuscular volume 87 [ foz_us] 80-99 Automated erythrocyte mean corpuscular h emoglobin (mass per erythrocyte) 28 pg 25-34 Automated erythrocyte mean corpuscular h emoglobin concentration measurement (mass/volume) 32 g/dL 32-36 Automated erythrocyte distribution width ratio 14. 4 % 10.0- 14.5 Automated blood platelet count (count/volume) 312 10*3/uL 130-400 Automated blood platelet mean volume measurement 11.3 [foz_us] 7.4-10.4 Automated blood neutrophils/100 leukocytes 71 % 42-75 Automated blood lymphocytes/100 leukocytes 18 % 12-44 Blood monocytes/100 leukocytes 7 % 0-12 Automated blood eosinophils/100 leukocytes 4 % 0-10 Automated blood basophils/100 leukocytes 1 % 0-10 Blood neutrophils automated count (number/volume) 6.0 10*3 1.8-7.8 Blood lymphocytes automated count (number/volume) 1.5 10*3 1.0-4.0 Blood monocytes automated count (number/volume) 0. 6 10*3 0.0-1.0 Automated eosinophil count 0.3 10*3/uL 0 .0-0.3 Automated blood basophil count (count/volume) 0.1 10*3/uL 0.0-0.1 Comprehensive metabolic panel - 05/04/19 13:22 Serum or plasma sodium measurement (moles/volume) 135 mmol/L 135-145 Serum or plasma potassium measurement (moles/volume) 3.5 mmol/L 3.6-5.0 Serum or plasma chloride measurement (moles/volume) 106 mmol/L 98-107 Carbon dioxide 17 mmol/L 21-32 Serum or plasma anion gap determination (moles/volume) 12 mmol/L 5-14 Serum or plasma urea nitrogen measurement (mass/volume ) 25 mg/dL 7-18 Serum or plasma creatinine measurement (mass/volume) 3.02 mg/dL 0.60-1.30 Serum or plasma urea nitrogen/creatinine mass ratio 8 NRG Serum or plasma creatinine measurement w ith calculation of estimated glomerular filtration rate 15 NRG Serum or plasma glucose measurement (mass/volume) 86 mg/dL 70-105 Serum or plasma calcium measurement (mass/volume) 9.2 mg/dL 8.5-10.1 Serum or plasma total bilirubin measurement (mass/volu me) 0.3 mg/dL 0.1-1.0 Serum or plasma alkaline phosphatase yazmin surement (enzymatic activity/volume) 142 U/L 40-136 Serum or plasma aspartate aminotransfera se measurement (enzymatic activity/volume) 12 U/L 5-34 Serum or plasma alanine aminotransferase measurement (enzymatic activity/volume) 14 U/L 0-55 Serum or plasma protein measurement (mass/volume) 6.4 g/dL 6.4-8.2 Serum or plasma albumin measurement (mass/volume) 3.4 g/dL 3.2-4.5 CALCIUM CORRECTED 9.7 mg/dL 8.5-10.1 Lipase - 05/04/19 13:22 Lipase 13 U/L 8-78 Complete blood count (CBC) with automate d white blood cell (WBC) differential - 05/05/19 04:25 Blood leukocytes automated count (number/volume) 6.6 10*3/uL 4.3-11.0 Blood erythrocytes automated count (number/volume) 3.64 10*6/uL 4.35-5.85 Venous blood hemoglobin measurement (mass/volume) 10.2 g/dL 11.5-16.0 Blood hematocrit (volume fraction) 32 % 35-52 Automated erythrocyte mean corpuscular volume 88 [ foz_us] 80-99 Automated erythrocyte mean corpuscular h emoglobin (mass per erythrocyte) 28 pg 25-34 Automated erythrocyte mean corpuscular h emoglobin concentration measurement (mass/volume) 32 g/dL 32-36 Automated erythrocyte distribution width ratio 14. 7 % 10.0- 14.5 Automated blood platelet count (count/volume) 252 10*3/uL 130-400 Automated blood platelet mean volume measurement 11.8 [foz_us] 7.4-10.4 Automated blood neutrophils/100 leukocytes 62 % 42-75 Automated blood lymphocytes/100 leukocytes 24 % 12-44 Blood monocytes/100 leukocytes 9 % 0-12 Automated blood eosinophils/100 leukocytes 4 % 0-10 Automated blood basophils/100 leukocytes 1 % 0-10 Blood neutrophils automated count (number/volume) 4.1 10*3 1.8-7.8 Blood lymphocytes automated count (number/volume) 1.6 10*3 1.0-4.0 Blood monocytes automated count (number/volume) 0. 6 10*3 0.0-1.0 Automated eosinophil count 0.3 10*3/uL 0 .0-0.3 Automated blood basophil count (count/volume) 0.0 10*3/uL 0.0-0.1 Comprehensive metabolic panel - 05/05/19 04:25 Serum or plasma sodium measurement (moles/volume) 140 mmol/L 135-145 Serum or plasma potassium measurement (moles/volume) 4.1 mmol/L 3.6-5.0 Serum or plasma chloride measurement (moles/volume) 114 mmol/L 98-107 Carbon dioxide 19 mmol/L 21-32 Serum or plasma anion gap determination (moles/volume) 7 mmol/L 5-14 Serum or plasma urea nitrogen measurement (mass/volume ) 21 mg/dL 7-18 Serum or plasma creatinine measurement (mass/volume) 2.39 mg/dL 0.60-1.30 Serum or plasma urea nitrogen/creatinine mass ratio 9 NRG Serum or plasma creatinine measurement w ith calculation of estimated glomerular filtration rate 20 NRG Serum or plasma glucose measurement (mass/volume) 75 mg/dL 70-105 Serum or plasma calcium measurement (mass/volume) 8.6 mg/dL 8.5-10.1 Serum or plasma total bilirubin measurement (mass/volu me) 0.3 mg/dL 0.1-1.0 Serum or plasma alkaline phosphatase yazmin surement (enzymatic activity/volume) 116 U/L 40-136 Serum or plasma aspartate aminotransfera se measurement (enzymatic activity/volume) 13 U/L 5-34 Serum or plasma alanine aminotransferase measurement (enzymatic activity/volume) 7 U/L 0-55 Serum or plasma protein measurement (mass/volume) 5.3 g/dL 6.4-8.2 Serum or plasma albumin measurement (mass/volume) 2.8 g/dL 3.2-4.5 CALCIUM CORRECTED 9.6 mg/dL 8.5-10.1 Complete blood count (CBC) with automate d white blood cell (WBC) differential - 05/06/19 05:56 Blood leukocytes automated count (number/volume) 6.2 10*3/uL 4.3-11.0 Blood erythrocytes automated count (number/volume) 3.50 10*6/uL 4.35-5.85 Venous blood hemoglobin measurement (mass/volume) 9.7 g/dL 11.5-16.0 Blood hematocrit (volume fraction) 31 % 35-52 Automated erythrocyte mean corpuscular volume 89 [ foz_us] 80-99 Automated erythrocyte mean corpuscular h emoglobin (mass per erythrocyte) 28 pg 25-34 Automated erythrocyte mean corpuscular h emoglobin concentration measurement (mass/volume) 31 g/dL 32-36 Automated erythrocyte distribution width ratio 14. 4 % 10.0- 14.5 Automated blood platelet count (count/volume) 247 10*3/uL 130-400 Automated blood platelet mean volume measurement 11.6 [foz_us] 7.4-10.4 Automated blood neutrophils/100 leukocytes 67 % 42-75 Automated blood lymphocytes/100 leukocytes 23 % 12-44 Blood monocytes/100 leukocytes 8 % 0-12 Automated blood eosinophils/100 leukocytes 2 % 0-10 Automated blood basophils/100 leukocytes 0 % 0-10 Blood neutrophils automated count (number/volume) 4.1 10*3 1.8-7.8 Blood lymphocytes automated count (number/volume) 1.4 10*3 1.0-4.0 Blood monocytes automated count (number/volume) 0. 5 10*3 0.0-1.0 Automated eosinophil count 0.1 10*3/uL 0 .0-0.3 Automated blood basophil count (count/volume) 0.0 10*3/uL 0.0-0.1 Comprehensive metabolic panel - 05/06/19 05:56 Serum or plasma sodium measurement (moles/volume) 141 mmol/L 135-145 Serum or plasma potassium measurement (moles/volume) 3.7 mmol/L 3.6-5.0 Serum or plasma chloride measurement (moles/volume) 115 mmol/L 98-107 Carbon dioxide 17 mmol/L 21-32 Serum or plasma anion gap determination (moles/volume) 9 mmol/L 5-14 Serum or plasma urea nitrogen measurement (mass/volume ) 16 mg/dL 7-18 Serum or plasma creatinine measurement (mass/volume) 1.86 mg/dL 0.60-1.30 Serum or plasma urea nitrogen/creatinine mass ratio 9 NRG Serum or plasma creatinine measurement w ith calculation of estimated glomerular filtration rate 27 NRG Serum or plasma glucose measurement (mass/volume) 79 mg/dL 70-105 Serum or plasma calcium measurement (mass/volume) 8.4 mg/dL 8.5-10.1 Serum or plasma total bilirubin measurement (mass/volu me) 0.2 mg/dL 0.1-1.0 Serum or plasma alkaline phosphatase yazmin surement (enzymatic activity/volume) 108 U/L 40-136 Serum or plasma aspartate aminotransfera se measurement (enzymatic activity/volume) 11 U/L 5-34 Serum or plasma alanine aminotransferase measurement (enzymatic activity/volume) 9 U/L 0-55 Serum or plasma protein measurement (mass/volume) 5.3 g/dL 6.4-8.2 Serum or plasma albumin measurement (mass/volume) 2.8 g/dL 3.2-4.5 CALCIUM CORRECTED 9.4 mg/dL 8.5-10.1 Complete blood count (CBC) with automate d white blood cell (WBC) differential - 06/05/19 20:00 Blood leukocytes automated count (number/volume) 10.2 10*3/uL 4.3-11.0 Blood erythrocytes automated count (number/volume) 4.14 10*6/uL 4.35-5.85 Venous blood hemoglobin measurement (mass/volume) 11.8 g/dL 11.5-16.0 Blood hematocrit (volume fraction) 37 % 35-52 Automated erythrocyte mean corpuscular volume 90 [ foz_us] 80-99 Automated erythrocyte mean corpuscular h emoglobin (mass per erythrocyte) 29 pg 25-34 Automated erythrocyte mean corpuscular h emoglobin concentration measurement (mass/volume) 32 g/dL 32-36 Automated erythrocyte distribution width ratio 15. 5 % 10.0- 14.5 Automated blood platelet count (count/volume) 236 10*3/uL 130-400 Automated blood platelet mean volume measurement 11.3 [foz_us] 7.4-10.4 Automated blood neutrophils/100 leukocytes 57 % 42-75 Automated blood lymphocytes/100 leukocytes 32 % 12-44 Blood monocytes/100 leukocytes 8 % 0-12 Automated blood eosinophils/100 leukocytes 2 % 0-10 Automated blood basophils/100 leukocytes 0 % 0-10 Blood neutrophils automated count (number/volume) 5.8 10*3 1.8-7.8 Blood lymphocytes automated count (number/volume) 3.3 10*3 1.0-4.0 Blood monocytes automated count (number/volume) 0. 8 10*3 0.0-1.0 Automated eosinophil count 0.2 10*3/uL 0 .0-0.3 Automated blood basophil count (count/volume) 0.0 10*3/uL 0.0-0.1 PT panel in platelet poor plasma by coag ulation assay - 06/05/19 20:00 Prothrombin time (PT) in platelet poor plasma by coagu lation assay 14.7 s 12.2-14.7 INR in platelet poor plasma or blood by coagulation as say 1.1 0.8-1.4 Activated partial thromboplastin time (a PTT) in platelet poor plasma bycoagulation assay - 06/05/19 20:00 Activated partial thromboplastin time (a PTT) in platelet poor plasma bycoagulation assay 25 s 24-35 Comprehensive metabolic panel - 06/05/19 20:00 Serum or plasma sodium measurement (moles/volume) 140 mmol/L 135-145 Serum or plasma potassium measurement (moles/volume) 4.4 mmol/L 3.6-5.0 Serum or plasma chloride measurement (moles/volume) 110 mmol/L 98-107 Carbon dioxide 17 mmol/L 21-32 Serum or plasma anion gap determination (moles/volume) 13 mmol/L 5-14 Serum or plasma urea nitrogen measurement (mass/volume ) 33 mg/dL 7-18 Serum or plasma creatinine measurement (mass/volume) 2.23 mg/dL 0.60-1.30 Serum or plasma urea nitrogen/creatinine mass ratio 15 NRG Serum or plasma creatinine measurement w ith calculation of estimated glomerular filtration rate 22 NRG Serum or plasma glucose measurement (mass/volume) 90 mg/dL 70-105 Serum or plasma calcium measurement (mass/volume) 8.7 mg/dL 8.5-10.1 Serum or plasma total bilirubin measurement (mass/volu me) 0.3 mg/dL 0.1-1.0 Serum or plasma alkaline phosphatase yazmin surement (enzymatic activity/volume) 69 U/L 40-136 Serum or plasma aspartate aminotransfera se measurement (enzymatic activity/volume) 13 U/L 5-34 Serum or plasma alanine aminotransferase measurement (enzymatic activity/volume) 8 U/L 0-55 Serum or plasma protein measurement (mass/volume) 6.3 g/dL 6.4-8.2 Serum or plasma albumin measurement (mass/volume) 3.6 g/dL 3.2-4.5 CALCIUM CORRECTED 9.0 mg/dL 8.5-10.1 Magnesium - 06/05/19 20:00 Magnesium 2.0 mg/dL 1.6-2.4 Myoglobin, serum - 06/05/19 20:00 Myoglobin, serum 51.2 ng/mL 10.0-92.0 Serum or plasma troponin i.cardiac measu rement (mass/volume) - 06/05/19 20:00 Serum or plasma troponin i.cardiac measurement (mass/v olume) < ng/mL <0.028 Serum or plasma troponin i.cardiac measu rement (mass/volume) - 06/05/19 21:52 Serum or plasma troponin i.cardiac measurement (mass/v olume) 0.047 ng/mL <0.028 Complete blood count (CBC) with automate d white blood cell (WBC) differential - 06/06/19 03:03 Blood leukocytes automated count (number/volume) 8.6 10*3/uL 4.3-11.0 Blood erythrocytes automated count (number/volume) 4.07 10*6/uL 4.35-5.85 Venous blood hemoglobin measurement (mass/volume) 11.4 g/dL 11.5-16.0 Blood hematocrit (volume fraction) 37 % 35-52 Automated erythrocyte mean corpuscular volume 91 [ foz_us] 80-99 Automated erythrocyte mean corpuscular h emoglobin (mass per erythrocyte) 28 pg 25-34 Automated erythrocyte mean corpuscular h emoglobin concentration measurement (mass/volume) 31 g/dL 32-36 Automated erythrocyte distribution width ratio 15. 6 % 10.0- 14.5 Automated blood platelet count (count/volume) 224 10*3/uL 130-400 Automated blood platelet mean volume measurement 11.6 [foz_us] 7.4-10.4 Automated blood neutrophils/100 leukocytes 56 % 42-75 Automated blood lymphocytes/100 leukocytes 33 % 12-44 Blood monocytes/100 leukocytes 9 % 0-12 Automated blood eosinophils/100 leukocytes 2 % 0-10 Automated blood basophils/100 leukocytes 0 % 0-10 Blood neutrophils automated count (number/volume) 4.8 10*3 1.8-7.8 Blood lymphocytes automated count (number/volume) 2.8 10*3 1.0-4.0 Blood monocytes automated count (number/volume) 0. 8 10*3 0.0-1.0 Automated eosinophil count 0.2 10*3/uL 0 .0-0.3 Automated blood basophil count (count/volume) 0.0 10*3/uL 0.0-0.1 Comprehensive metabolic panel - 06/06/19 03:03 Serum or plasma sodium measurement (moles/volume) 139 mmol/L 135-145 Serum or plasma potassium measurement (moles/volume) 4.2 mmol/L 3.6-5.0 Serum or plasma chloride measurement (moles/volume) 110 mmol/L 98-107 Carbon dioxide 18 mmol/L 21-32 Serum or plasma anion gap determination (moles/volume) 11 mmol/L 5-14 Serum or plasma urea nitrogen measurement (mass/volume ) 34 mg/dL 7-18 Serum or plasma creatinine measurement (mass/volume) 1.98 mg/dL 0.60-1.30 Serum or plasma urea nitrogen/creatinine mass ratio 17 NRG Serum or plasma creatinine measurement w ith calculation of estimated glomerular filtration rate 25 NRG Serum or plasma glucose measurement (mass/volume) 74 mg/dL 70-105 Serum or plasma calcium measurement (mass/volume) 8.6 mg/dL 8.5-10.1 Serum or plasma total bilirubin measurement (mass/volu me) 0.3 mg/dL 0.1-1.0 Serum or plasma alkaline phosphatase yazmin surement (enzymatic activity/volume) 66 U/L 40-136 Serum or plasma aspartate aminotransfera se measurement (enzymatic activity/volume) 11 U/L 5-34 Serum or plasma alanine aminotransferase measurement (enzymatic activity/volume) 8 U/L 0-55 Serum or plasma protein measurement (mass/volume) 5.8 g/dL 6.4-8.2 Serum or plasma albumin measurement (mass/volume) 3.5 g/dL 3.2-4.5 CALCIUM CORRECTED 9.0 mg/dL 8.5-10.1 Serum or plasma troponin i.cardiac measu rement (mass/volume) - 06/06/19 03:03 Serum or plasma troponin i.cardiac measurement (mass/v olume) 0.186 ng/mL <0.028 Lipid 1996 panel - 06/06/19 03:03 Serum or plasma triglyceride measurement (mass/volume) 186 mg/dL <150 Serum or plasma cholesterol measurement (mass/volume) 147 mg/dL < 200 Serum or plasma cholesterol in HDL measurement (mass/v olume) 35 mg/dL 40-60 Cholesterol in LDL [mass/volume] in serum or plasma by direct assay 88 mg/dL 1-129 Serum or plasma cholesterol in VLDL measurement (mass/ volume) 37 mg/dL 5-40 Encounters ACCT No. Visit Date/Time Discharge Status Pt. Type Provider Facility Loc./Unit Complaint [id number] 03/19/2019 10:20:00 03/19/2019 23:59:5 9 CLS Outpatient CHRISTA GLORIA APRN [facility] [id number] 03/19/2019 10:20:00 Document Registration [id number] 11/04/2018 14:40:00 Document Registration [id number] 08/13/2018 09:40:00 Document Registration [id number] 01/30/2018 10:40:00 Document Registration [id number] 06/25/2017 18:40:00 Document Registration [id number] 12/20/2016 10:40:00 Document Registration [id number] 06/27/2014 11:17:00 06/27/2014 23:59: 59 CLS Outpatient CHRISTA GLORIA APRN [id number] 05/04/2014 12:42:00 05/04/2014 23:59: 59 CLS Outpatient COLLEEN WAYNE APRN [id number] 04/08/2014 16:11:00 04/08/2014 23:59: 59 CLS Outpatient CHRISTA GLORIA APRN [id number] 12/08/2013 11:03:00 12/08/2013 23:59: 59 CLS Outpatient CHRISTA GLORIA APRN [id number] 09/28/2013 10:06:00 09/28/2013 23:59: 59 CLS Outpatient ONEYDA RUIZ APRN [id number] 09/13/2013 12:07:00 09/13/2013 23:59: 59 CLS Outpatient COLLEEN WAYNE APRN Jovana [id number] 2013 13:19:00 2013 23:59: 59 CLS Outpatient LINDA DO LUANNE [place] [id number] 06/21/2013 16:02:00 06/21/2013 23:59: 59 CLS Outpatient LINDA DO LUANNE [place] [id number] 05/05/2013 10:48:00 05/05/2013 23:59: 59 CLS Outpatient LINDA DO LUANNE [place] [id number] 05/05/2013 10:48:00 05/05/2013 23:59: 59 CLS Outpatient LINDA DO LUAN[place] [id number] 04/19/2013 09:39:00 04/19/2013 23:59: 59 CLS Outpatient LINDA DO LUANNE [place] [id number] 03/11/2013 14:00:00 03/11/2013 23:59: 59 CLS Outpatient MARCELO WAYNE APRNNE Whaley [id number] 02/24/2013 15:28:00 02/24/2013 23:59: 59 CLS Outpatient LINDA DO LUAN[place] [id number] 02/22/2013 11:28:00 02/22/2013 23:59: 59 CLS Outpatient LINDA DO LU[place] [id number] 02/22/2013 11:28:00 02/22/2013 23:59: 59 CLS Outpatient LINDA DO LU[place] [id number] 02/11/2013 16:04:00 02/11/2013 23:59: 59 CLS Outpatient HERNAN CRUZ MD [id number] 01/22/2013 08:45:00 01/22/2013 23:59: 59 CLS Outpatient LINDA DO LUAN[place] [id number] 11/24/2012 08:59:00 11/24/2012 23:59: 59 CLS Outpatient LINDA DOLUANNE [id number] 05/12/2012 08:25:00 05/12/2012 23:59: 59 CLS Outpatient LINDA DO LU[place] [id number] 04/13/2012 09:56:00 04/13/2012 23:59: 59 CLS Outpatient LUANNE LINAD DO [id number] 04/01/2012 12:14:00 04/01/2012 23:59: 59 CLS Outpatient [id number] 01/17/2012 10:03:00 01/17/2012 23:59:5 9 CLS Outpatient LUANNE LINDA DO [id number] 01/17/2012 10:03:00 01/17/2012 23:59: 59 CLS Outpatient [id number] 11/16/2012 14:32:00 Document Registration [id number] 10/19/2012 11:25:00 Document Registration [id number] 09/21/2012 13:09:00 Document Registration [id number] 08/10/2012 09:38:00 Document Registration [id number] 07/14/2012 15:04:00 Document Registration [id number] 07/07/2012 14:09:00 Document Registration [id number] 05/04/2019 14:31:00 18:15:00 DIS Inpatient SERINA DEL REAL DO, V [facility] 4TH TRAE,N/V/D [id number] 03/04/2019 10:26:00 11:10:00 DIS Outpatient HERNAN CRUZ MD Via [facility] OSTEOMYCLITIS OF TOE [id number] 02/12/2019 09:31:00 23:59:59 CLS Outpatient PIERO SOUSA MD [facility] WOUNDCARE [id number] 02/05/2019 09:47:00 23:59:59 CLS Outpatient PIERO SOUSA MD [facility] WOUNDCARE [id number] 01/29/2019 09:49:00 23:59:59 CLS Outpatient PIERO SOUSA [facility] [id number] 01/22/2019 10:25:00 23:59:59 CLS Outpatient PIERO SOUSA MD [facility] WOUNDCARE [id number] 01/12/2019 13:28:00 23:59:59 CLS Outpatient PIERO SOUSA MD [facility] WOUNDCARE [id number] 12/25/2018 11:02:00 14:11:00 DIS Emergency MORRISONYUDI APRN [facility] ER POSS SEPTIC [id number] 12/21/2018 14:20:00 13:00:00 DIS Inpatient HERNAN CRUZ MD [facility] 4TH SEPSIS;OSTEOMYELITIS;AC EMMONAK RENAL FAILURE;R SHOULD- [id number] 12/16/2018 08:54:00 23:59:59 CLS Preadmit OTHER, UNLISTED [facility] RAD AORTIC THROMBUS [id number] 11/11/2018 09:42:00 23:59:59 CLS Preadmit CHRISTA GLORIA [facility] REHAB S/P CVA [id number] 10/30/2018 20:04:00 23:06:00 DIS Emergency ALDEN ALVARADO [facility] ER R FOOT PAIN [id number] 08/11/2018 12:00:00 23:59:59 CLS Preadmit MARIA DOLORES CRYSTAL FACC, DIMITRI DOWNING CCDS [facility] CATH CVA,CAD,HTN,HILARIO [id number] 07/21/2018 11:00:00 12:00:00 DIS Inpatient SERINA DEL REAL DO, V ia [facility] IRF CVA [id number] 07/15/2018 14:10:00 10:45:00 DIS Inpatient HERNAN CRUZ MD [facility] 4TH SUBACUTE CVA/UTI [id number] 05/10/2018 08:45:00 23:59:59 CLS Outpatient HENRY ROSE MD [facility] RAD POSSIBLE DVT [id number] 05/09/2018 18:24:00 23:00:00 DIS Emergency MICKEY KENNEDY [facility] ER VOMITING/L LEG PAIN [id number] 02/12/2018 00:40:00 018 02:35:00 DIS Emergency KEITH FERNANDEZ DO [facility] ER BLOOD IN URINE [id number] 12/19/2017 08:03:00 018 12:27:00 DIS Emergency HARESH CRYSTAL, GUSTAVO [place] [facility] ER ABD PAIN [id number] 09/11/2017 10:45:00 018 23:59:59 CLS Outpatient DEJA ZHONG CADMIUM BURNER [facility] RAD ASYMPTOMIC MENOPAUSAL STATE [id number] 08/07/2017 13:34:00 018 17:01:00 DIS Emergency YUDI MORRISON CADMIUM BURNER [facility] ER CP, [id number] 05/24/2016 11:42:00 017 17:03:00 DIS Emergency GAGAN CRYSTAL, SERGIO Griffith [facility] ER RIGHT SIDE LOWER ABD PA IN/NAUSEA [id number] 03/18/2016 12:32:00 016 13:47:00 DIS Emergency MILTON CRYSTAL, HENRY Rodgers [facility] ER RIGHT LEG PAIN [id number] 12/29/2014 10:02:00 015 23:59:59 CLS Preadmit EDDIE GLORIA APRN [facility] REHAB [id number] 06/30/2013 07:15:00 014 23:59:59 CLS Outpatient KASIA CHRISTOPHER MD [facility] PREOP SCREENING [id number] 12/02/2012 11:53:00 013 23:59:59 CLS Outpatient KASIA CHRISTOPHER MD [facility] PREOP SCREENING [id number] 11/06/2012 21:56:00 013 06:50:00 DIS Outpatient LUANNE LINDA DO [facility] SLEEP SNORING [id number] 06/05/2019 20:20:00 Document Registration [id number] 12/23/2014 10:01:00 Document Registration [id number] 12/23/2014 10:01:00 Document Registration [id number] 05/06/2012 07:51:00 Document Registration [id number] 04/22/2012 09:16:00 Document Registration [id number] 02/24/2012 10:26:00 Document Registration
--- OUTSIDE RECORDS SUMMARY | 2019-06-06 22:15 | XMS REPORT | Clinical Summary ---
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 If you d o not see the information that you expected, contact Release of Information in [facility] [employer] department at [phone] for further assistan ce in locating additional records.[facility] Allergies No Known Allergies Medications End [...]
--- OUTSIDE RECORDS SUMMARY | 2019-06-06 22:28 | XMS REPORT | Continuity of Care Document ---
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 03/01/2008 WAYNE TRAVELERS' AID WORKER, COLLEEN R 599.7 HEMATURIA 03/01/2008 WAYNE TRAVELERS' AID WORKER, COLLEEN R 789.00 Abdominal Pain Unspecified Site [...] LINDA DO, LUANNE K 599.7 HEMATURIA 03/01/2008 LNIDA DO, LUANNE K 789.00 Abdominal Pain Unspecified Site 03/01/2008 WANYE TRAVELERS' AID WORKER COLLEEN R 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 03/01/2008 ROSANA TRAVELERS' AID WORKER COLLEEN R 599.7 HEMATURIA 03/01/2008 WAYNE TRAVELERS' AID WORKER, COLLEEN R 789.00 Abdominal Pain Unspecified Site [...] WAYNE APRNRICIA R 599.7 HEMATURIA 03/01/2008 PERRI AWYNE APRNRICIA R 789.00 Abdominal Pain Unspecified Site [...] 414.01 CORONARY ARTERY STENOSIS MULTI-VESSEL 08/10/2008 WAYNE TRAVELERS' AID WORKER, COLLEEN R 300.00 anxiety 08/10/2008 WAYNE TRAVELERS' AID WORKER, COLLEEN R 305.1 NICOTINE DEPENDENCE 08/10/2008 WAYNE TRAVELERS' AID WORKER, COLLEEN R 414.01 CORONARY ARTERY STENOSIS MULTI-VESSEL [...] 414.01 CORONARY ARTERY STENOSIS MULTI-VESSEL 08/10/2008 ROSANA TRAVELERS' AID WORKER, COLLEEN R 300.00 anxiety 08/10/2008 ROSANA TRAVELERS' AID WORKER, COLLEEN R 305.1 NICOTINE DEPENDENCE 08/10/2008 ROSANA LINGN, COLLEEN R 414.01 CORONARY ARTERY STENOSIS MULTI-VESSEL 08/10/2008 SARA TRAVELERS' AID WORKER, ONEYDA A 300.00 anxiety 08/10/2008 SARA TRAVELERS' AID WORKER, ONEYDA A 30 5.1 NICOTINE DEPENDENCE 08/10/2008 SARA TRAVELERS' AID WORKER, ONEYDA A 414.01 CORONARY ARTERY STENOSIS MULTI-VESSEL [...] Acute Bronchitis 03/27/2009 ANTHONY CRYSTAL, HERNAN Mead 466 .0 Acute Bronchitis 03/27/2009 LINDA DO, [...] COLLEEN R 466.0 Acute Bronchitis 03/27/2009 FAIZAN TRAVELERS' AID WORKER, CHRISTA T 46 6.0 Acute Bronchitis 05/10/2009 625.8 [place] 05/10/2009 V72.31 Automatic Trimming Sewer Exam, Routine 05/10/2009 625.8 [place] 05/10/2009 V72.31 Automatic Trimming Sewer Exam, Routine 05/10/2009 LINDA DO LUANNE K 625.8 [place] 05/10/2009 LINDA DO, LUANNE K V72.31 Automatic Trimming Sewer Exam, Routine 05/10/2009 LINDA DO, LUANNE K 625.8 [place] 05/10/2009 LINDA DO, LUANNE K V72.31 Automatic Trimming Sewer Exam, Routine 05/10/2009 625.8 [place] 05/10/2009 V72.31 Automatic Trimming Sewer Exam, Routine 05/10/2009 625.8 [place] 05/10/2009 V72.31 Automatic Trimming Sewer Exam, Routine 05/10/2009 625.8 [place] 05/10/2009 V72.31 Automatic Trimming Sewer Exam, Routine 05/10/2009 625.8 [place] 05/10/2009 V72.31 Automatic Trimming Sewer Exam, Routine 05/10/2009 625.8 [place] 05/10/2009 V72.31 Automatic Trimming Sewer Exam, Routine 05/10/2009 625.8 [place] 05/10/2009 V72.31 Automatic Trimming Sewer Exam, Routine 05/10/2009 LINDA DO LUANNE K 625.8 [place] 05/10/2009 LINDA DO, LUANNE K V72.31 Automatic Trimming Sewer Exam, Routine 05/10/2009 LINDA DO, LUANNE K 625.8 [place] 05/10/2009 LINDA DO, LUANNE K V72.31 Automatic Trimming Sewer Exam, Routine 05/10/2009 LINDA DO, LUANNE K 625.8 [place] 05/10/2009 LINDA DO, LUANNE K V72.31 Automatic Trimming Sewer Exam, Routine 05/10/2009 ANTHONY CRYSTAL, HERNAN Mead 625 .8 [place] 05/10/2009 ANTHONY CRYSTAL, HERNAN Mead V72 .31 Automatic Trimming Sewer Exam, Routine 05/10/2009 LINDA DO, LUANNE K 625.8 [place] 05/10/2009 LINDA DO, LUANNE K V72.31 Automatic Trimming Sewer Exam, Routine 05/10/2009 LINDA DO, LUANNE K 625.8 [place] 05/10/2009 LINDA DO, LUANNE K V72.31 Automatic Trimming Sewer Exam, Routine 05/10/2009 MARCELO WAYNE APRNIA R 625.8 [place] 05/10/2009 PERRI WAYNE APRNRICIA R V72.31 Automatic Trimming Sewer Exam, Routine 05/10/2009 LINDA DO, LUANNE K 625.8 [place] 05/10/2009 LINDA DO, LUANNE K V72.31 Automatic Trimming Sewer Exam, Routine 05/10/2009 LINDA DO, LUANNE K 625.8 [place] 05/10/2009 LINDA DO, LUANNE K V72.31 Automatic Trimming Sewer Exam, Routine 05/10/2009 LINDA DO, LUANNE K 625.8 [place] 05/10/2009 LINDA DO, LUANNE K V72.31 Automatic Trimming Sewer Exam, Routine 05/10/2009 LINDA DO, LUANNE K 625.8 [place] 05/10/2009 LINDA DO, LUANNE K V72.31 Automatic Trimming Sewer Exam, Routine 05/10/2009 LINDA DO, LUANNE K 625.8 [place] 05/10/2009 LINDA DO, LUANNE K V72.31 Automatic Trimming Sewer Exam, Routine 05/10/2009 LINDA DO, LUANNE K 625.8 [place] 05/10/2009 LINDA DO, LUANNE K V72.31 Automatic Trimming Sewer Exam, Routine 05/10/2009 MARCELO WAYNE APRNIA R 625.8 [place] 05/10/2009 MARCELO WAYNE APRNIA R V72.31 Automatic Trimming Sewer Exam, Routine 05/10/2009 ONEYDA RUIZ APRN A 62 5.8 [place] 05/10/2009 ONEYDA RUIZ APRN V72.31 Automatic Trimming Sewer Exam, Routine 05/10/2009 CHRISTA GLORIA APRN 62 5.8 [place] 05/10/2009 CHRISTA GLORIA APRN V72.31 Automatic Trimming Sewer Exam, Routine 05/10/2009 CHRISTA GLORIA APRN 62 5.8 [place] 05/10/2009 CHRISTA GLORIA APRN V72.31 Automatic Trimming Sewer Exam, Routine 05/10/2009 COLLEEN WAYNE APRN R 625.8 [place] 05/10/2009 COLLEEN WAYNE APRN R V72.31 Automatic Trimming Sewer Exam, Routine 05/10/2009 CHRISTA GLORIA APRN 62 5.8 [place] 05/10/2009 CHRISTA GLORIA APRN V72.31 Automatic Trimming Sewer Exam, Routine 06/08/2009 788.31 URG E INCONTINENCE [...] COLLEEN WAYNE APRN 724.5 BACKACHE 12/16/2009 SARA TRA[employer]EL[employer]' AID WORKER, ONEYDA A 72 4.5 BACKACHE 12/16/2009 FAIZAN TRAVELERS' AID WORKERCHRISTA Mead T 72 4.5 BACKACHE 12/16/2009 FAIZAN TRAVELERS' AID WORKERCHRISTA Mead T 72 4.5 BACKACHE 12/16/2009 ROSANA [...] 788.42 Frequent, Full-bladder Emptying (polyuria) 06/19/2010 WAYNE TRAVELERS' AID WORKER, COLLEEN R 719.40 joint pain, localized 06/19/2010 WAYNE TRAVELERS' AID WORKER, COLLEEN R 783.5 Excessive Thirst / Fluid Intake (polydypsia) 06/19/2010 WAYNE TRAVELERS' AID WORKER, COLLEEN R 788.42 Frequent, Full-bladder Emptying (polyuria) [...] APRNRICIA R 710.0 Systemic Lupus Erythematosus 10/15/2010 ONEYDA RUIZ APRN A 71 0.0 Systemic Lupus [...] DO, LUANNE K 786.2 Cough 04/01/2012 WAYNE TRAVELERS' AID WORKER, COLLEEN R 786.2 Cough 04/01/2012 SARA TRAVELERS' AID WORKER, ONEYDA A 78 6.2 Cough 04/01/2012 FAIZAN TRAVELERS' AID WORKER, CHRISTA T 78 6.2 Cough 04/01/2012 FAIZAN TRAVELERS' AID WORKER, CHRISTA T 78 6.2 Cough 04/01/2012 WAYNE TRAVELERS' AID WORKER, COLLEEN R 786.2 Cough 04/01/2012 FAIZAN TRAVELERS' AID WORKER, CHRISTA T 78 6.2 Cough 04/13/2012 LINDA [...] WITH FEMALE GENITAL ORG ANS 09/13/2013 FAIZAN TRAVELERS' AID WORKER, CHRISTA T 62 5.9 UNSPECIFIED SYMPTOM ASSOCIATED [...] KASIA Canas Ot V72.84 03/18/2016 MILTON CRYSTAL, HERNY Rodgers Ot M79.604 PAIN IN RIGHT LEG [...] 05/24/2016 SERGIO FARAH MD Ot Z79. 82 PROGRAM COUNSELOR (CURRENT) USE OF ASPIRIN 05/24/2016 SERGIO FARAH MD Ot Z79.899 OTHER PROGRAM COUNSELOR (CURRENT) DRUG THERAPY 05/24/2016 SERGIO FARAH MD [...] 05/27/2016 SERGIO FARAH MD Ot Z79. 82 FPC (CURRENT) USE OF ASPIRIN 05/27/2016 SERGIO FARAH MD Ot Z79.899 OTHER PROGRAM COUNSELOR (CURRENT) DRUG THERAPY 05/27/2016 SERGIO FARAH MD [...] 05/27/2016 SERGIO FARAH MD Ot Z79. 82 FPC (CURRENT) USE OF ASPIRIN 05/27/2016 SERGIO FARAH MD Ot Z79.899 OTHER PROGRAM COUNSELOR (CURRENT) DRUG THERAPY 05/27/2016 SERGIO FARAH MD [...] R10. 31 RIGHT LOWER QUADRANT PAIN 05/31/2016 SERGIO FARAH MD Ot R91. 1 SOLITARY PULMONARY NODULE 05/31/2016 SERGIO FARAH MD Ot Z79. 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 08/11/2017 YUDI MORRISON TRAVELERS' AID WORKER Ot Z87.19 PERSONAL HISTORY OF OTHER DISEASES OF TH 08/11/2017 YUDI MORRISON TRAVELERS' AID WORKER Ot 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 08/11/2017 YUDI MORRISON TRAVELERS' AID WORKER Ot Z90.89 ACQUIRED ABSENCE OF OTHER ORGANS 09/08/2017 DEJA ZHONG TRAVELERS' AID WORKER Ot Z78.0 ASYMPTOMATIC MENOPAUSAL STATE 09/08/2017 Ot 793.89 OTH (ABN) FINDINGS ON RADIOLOGICAL EXAMI 09/08/2017 Ot V76.12 OTH SCREEN MAMMO- MALIGN NEOPLASM OF [place]IAN[place] 09/08/2017 Ot 610.0 SANJIV TARY CYST OF BREAST 09/08/2017 CANDI CRYSTAL, KASIA Canas Ot V72.84 EXAM PRE-OPERATIVE NOS 09/08/2017 CANDI CRYSTAL, KASIA Canas Ot V72.84 EXAM PRE-OPERATIVE NOS 09/08/2017 DEJA ZHONG TRAVELERS' AID WORKER Ot Z78.0 ASYMPTOMATIC MENOPAUSAL STATE 09/12/2017 DEJA ZHONG TRAVELERS' AID WORKER Ot 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, 09/12/2017 DEJA ZHONG TRAVELERS' AID WORKER Ot Z13.820 ENCOUNTER FOR SCREENING FOR OSTEOPOROSIS 09/12/2017 DEJA ZHONG TRAVELERS' AID WORKER Ot Z78.0 ASYMPTOMATIC MENOPAUSAL STATE 10/02/2017 DEJA ZHONG TRAVELERS' AID WORKER Ot 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, 10/02/2017 DEJA ZHONG TRAVELERS' AID WORKER Ot Z13.820 ENCOUNTER FOR SCREENING FOR OSTEOPOROSIS 10/02/2017 DEJA ZHONG TRAVELERS' AID WORKER Ot Z78.0 ASYMPTOMATIC MENOPAUSAL STATE 12/19/2017 GUSTAVO HUTSON MD Ot F17.210 NICOTINE DEPENDENCE, CIGARETTES, UNCOMPL 12/19/2017 GUSTAVO HUTSON MD Ot I47 .2 VENTRICULAR TACHYCARDIA 12/19/2017 GUSTAVO HUTSON MD Ot N28 .0 ISCHEMIA AND INFARCTION OF KIDNEY 12/19/2017 GUSTAVO HUTSON MD Ot R10.31 RIGHT LOWER QUADRANT PAIN 12/19/2017 GUSTAVO HUTSON MD Ot Z79.82 PROGRAM COUNSELOR (CURRENT) USE OF ASPIRIN 12/19/2017 GUSTAVO HUTSON [...] .0 ISCHEMIA AND INFARCTION OF KIDNEY 12/22/2017 GSUTAVO HUTSON MD Ot R10.31 RIGHT LOWER QUADRANT PAIN 12/22/2017 GUSTAVO HUTSON MD, Ot Z79.82 FPC (CURRENT) USE OF ASPIRIN 12/22/2017 GUSTAVO HUTSON [...] DO Ot I25.10 ATHSCL HEART DISEASE OF [place] CORONARY 02/12/2018 NONA FERNANDEZ DOA K Ot M32.9 SYSTEMIC LUPUS ERYTHEMATOSUS, UNSPECIFIE 02/12/2018 KETIH FERNANDEZ DO Ot N39.0 URINARY TRACT INFECTION, SITE NOT SPECIF 02/12/2018 KEITH FERNANDEZ DO Ot R31.9 HEMATURIA, UNSPECIFIED 02/12/2018 NONA FERNANDEZ DOA K Ot Z79.01 FPC (CURRENT) USE OF ANTICOAGULANT 02/12/2018 KEITH FERNANDEZ DO Ot Z79.82 FPC (CURRENT) USE OF ASPIRIN 02/12/2018 KEITH FERNANDEZ [...] K Ot I25.10 ATHSCL HEART DISEASE OF [place] CORONARY 02/16/2018 REBECCA PORTILLO KEITH Demond Ot M32.9 SYSTEMIC LUPUS ERYTHEMATOSUS, UNSPECIFIE 02/16/2018 REBECCA PORTILLOKEITH Ot N39.0 URINARY TRACT INFECTION, SITE NOT SPECIF 02/16/2018 REBECCA PORTILLONONAA Demond Ot R31.9 HEMATURIA, UNSPECIFIED 02/16/2018 REBECCA KEITH K Ot Z79.01 PROGRAM COUNSELOR (CURRENT) USE OF ANTICOAGULANT 02/16/2018 REBECCA PORTILLONONAA Demond Ot Z79.82 PROGRAM COUNSELOR (CURRENT) USE OF ASPIRIN 02/16/2018 REBECCA NONAA [...] KENNEDY Ot I25.10 ATHSCL HEART DISEASE OF [place] CORONARY 05/09/2018 MICKEY KENNEDY Ot M10.9 GOUT, [...] TOBACCO SMO 05/09/2018 MICKEY KENNEDY Ot Z79.82 PROGRAM COUNSELOR (CURRENT) USE OF ASPIRIN 05/09/2018 MAGO KENNEDYIS [...] KENNEDY Ot I25.10 ATHSCL HEART DISEASE OF [place] CORONARY 05/12/2018 MICKEY KENNEDY Ot M10.9 GOUT, [...] TOBACCO SMO 05/12/2018 MAGO KENNEDYIS Ot Z79.82 FPC (CURRENT) USE OF ASPIRIN 05/12/2018 MAGO KENNEDYIS [...] MD Ot I25.10 ATHSCL HEART DISEASE OF [place] CORONARY 07/20/2018 HERNAN CRUZ MD Ot I34 [...] SPECIF 07/20/2018 HERNAN CRUZ MD, Ot Z79.01 FPC (CURRENT) USE OF ANTICOAGULANT 07/20/2018 HERNAN CRUZ MD, Ot Z85.41 PERSONAL HISTORY OF MALIGNANT NEOPLASM O 07/20/2018 HERNAN CRUZ MD, Ot 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 07/20/2018 HERNAN CRUZ MD, Ot Z86.718 PERSONAL HISTORY OF OTHER VENOUS THROMBO 07/20/2018 HERNAN CRUZ MD, Ot Z91.19 PATIENT'S NONCOMPLIANCE W [facility] 07/20/2018 HERNAN CRUZ MD, [...] Ot F41 .9 ANXIETY DISORDER, UNSPECIFIED 07/21/2018 HERNAN CRUZ MD Ot G47.30 SLEEP APNEA, UNSPECIFIED 07/21/2018 HERNAN CRUZ MD Ot 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, LEFT 07/21/2018 HERNAN CRUZ MD Ot 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, LEFT EYE, OSIEL 07/21/2018 HERNAN CRUZ MD Ot I10 ESSENTIAL (PRIMARY) HYPERTENSION 07/21/2018 HERNAN CRUZ MD Ot I25.10 ATHSCL HEART DISEASE OF [place] CORONARY 07/21/2018 HERNAN CRUZ MD Ot I34 [...] SPECIF 07/21/2018 HERNAN CRUZ MD, Ot Z79.01 FPC (CURRENT) USE OF ANTICOAGULANT 07/21/2018 HERNAN CRUZ [...] SERINA Ot I25.10 ATHSCL HEART DISEASE OF [place] CORONARY 07/31/2018 GT PORTILLO SERINA Ot I65.23 [...] WEAKNESS 07/31/2018 GT PORTILLO SERINA Ot Z79.01 PROGRAM COUNSELOR (CURRENT) USE OF ANTICOAGULANT 07/31/2018 GT PORTILLO [...] ALVARADO Ot I25.10 ATHSCL HEART DISEASE OF [place] CORONARY 10/30/2018 ALDEN ALVARADO Ot I73.9 PERIPHERAL VASCULAR DISEASE, UNSPECIFIED 10/30/2018 ALDEN ALVARADO Ot L03.031 CELLULITIS OF RIGHT TOE 10/30/2018 ALDEN ALVARADO Ot M32.9 SYSTEMIC LUPUS ERYTHEMATOSUS, UNSPECIFIE 10/30/2018 ALDEN ALVARADO Ot M79.671 PAIN IN RIGHT FOOT 10/30/2018 ALDEN ALVARADO Ot N18.9 CHRONIC KIDNEY DISEASE, UNSPECIFIED 10/30/2018 ALDEN ALVARADO Ot Z79.82 PROGRAM COUNSELOR (CURRENT) USE OF ASPIRIN 10/30/2018 ALDEN ALVARADO Ot Z85.41 PERSONAL HISTORY OF MALIGNANT NEOPLASM O 10/30/2018 ALDEN ALVARADO Ot 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 10/30/2018 ALDEN ALVARAOD Ot Z86.73 PRSNL HX OF TIA (TIA), [...] ALVARADO Ot I25.10 ATHSCL HEART DISEASE OF [place] CORONARY 11/03/2018 ALDEN ALVARADO Ot I73.9 PERIPHERAL VASCULAR DISEASE, UNSPECIFIED 11/03/2018 ALDEN ALVARADO Ot L03.031 CELLULITIS OF RIGHT TOE 11/03/2018 ALDEN ALVARADO Ot M32.9 SYSTEMIC LUPUS ERYTHEMATOSUS, UNSPECIFIE 11/03/2018 ALDEN ALVARADO Ot M79.671 PAIN IN RIGHT FOOT 11/03/2018 ALDEN ALVARADO Ot N18.9 CHRONIC KIDNEY DISEASE, UNSPECIFIED 11/03/2018 ALDEN ALVARADO Ot Z79.82 PROGRAM COUNSELOR (CURRENT) USE OF ASPIRIN 11/03/2018 ALDEN ALVARADO Ot Z85.41 PERSONAL HISTORY OF MALIGNANT NEOPLASM O 11/03/2018 ALDEN ALVARADO Ot 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 11/03/2018 ALDEN ALVARADO Ot Z86.73 PRSNL HX OF TIA (TIA), AND CEREB INFRC W 11/03/2018 ALDEN ALVARADO Ot Z87.01 PERSONAL HISTORY OF PNEUMONIA (RECURRENT 11/03/2018 ALDEN ALVARADO Ot Z90.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 BOTH CERVIX AND UTER 11/03/2018 ALDEN ALVARADO Ot Z90.89 ACQUIRED ABSENCE OF OTHER ORGANS 12/17/2018 CANDI CRYSTAL, KASIA M Ot V72.84 EXAM PRE-OPERATIVE NOS 12/17/2018 DEJA ZHONG APRN Ot 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, 12/17/2018 DEJA ZHONG APRN Ot Z13.820 ENCOUNTER FOR SCREENING FOR OSTEOPOROSIS 12/17/2018 DEJA ZHONG TRAVELERS' AID WORKER Ot Z78.0 ASYMPTOMATIC MENOPAUSAL STATE 12/17/2018 MILTON CRYSTAL, HENRY Rodgers Ot M79.605 PAIN IN LEFT LEG 12/21/2018 DEJA ZHONG TRAVELERS' AID WORKER Ot 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, 12/21/2018 ZHONGDEJA PATEL TRAVELERS' AID WORKER Ot Z13.820 ENCOUNTER FOR SCREENING FOR OSTEOPOROSIS 12/21/2018 ZHONGDEJA PATEL TRAVELERS' AID WORKER Ot Z78.0 ASYMPTOMATIC MENOPAUSAL STATE 12/21/2018 MILOTN CRYSTAL, HENRY Rodgers Ot M79.605 PAIN IN [...] MD, Ot I25.10 ATHSCL HEART DISEASE OF [place] CORONARY 12/23/2018 HERNAN CRUZ MD Ot I82 [...] SPECIF 12/23/2018 HERNAN CRUZ MD Ot Z79.82 PROGRAM COUNSELOR (CURRENT) USE OF ASPIRIN 12/23/2018 HERNAN CRUZ MD, Ot Z79.891 PROGRAM COUNSELOR (CURRENT) USE OF OPIATE ANALGE 12/23/2018 HERNAN CRUZ MD, Ot Z79.899 OTHER FPC (CURRENT) DRUG THERAPY 12/23/2018 HERNAN CRUZ MD, [...] APRN Ot I25.10 ATHSCL HEART DISEASE OF [place] CORONARY 12/25/2018 YUDI MORRISON APRN Ot M86 .9 OSTEOMYELITIS, UNSPECIFIED 12/25/2018 YUDI MORRISON APRN Ot N39 .0 URINARY TRACT INFECTION, SITE NOT SPECIF 12/25/2018 YUDI MORRISON APRN Ot Z79.01 PROGRAM COUNSELOR (CURRENT) USE OF ANTICOAGULANT 12/25/2018 YUDI MORRISON APRN Ot Z79.52 PROGRAM COUNSELOR (CURRENT) USE OF SYSTEMIC STER 12/25/2018 YUDI MORRISON APRN Ot Z79.82 FPC (CURRENT) USE OF ASPIRIN 12/25/2018 YUDI MORRISON [...] APRN Ot I25.10 ATHSCL HEART DISEASE OF [place] CORONARY 12/30/2018 YUDI MORRISON APRN Ot M86 .9 OSTEOMYELITIS, UNSPECIFIED 12/30/2018 YUDI MORRISON APRN Ot N39 .0 URINARY TRACT INFECTION, SITE NOT SPECIF 12/30/2018 YUDI MORRISON APRN Ot Z79.01 FPC (CURRENT) USE OF ANTICOAGULANT 12/30/2018 YUDI MORRISON APRN Ot Z79.52 PROGRAM COUNSELOR (CURRENT) USE OF SYSTEMIC STER 12/30/2018 YUDI MORRISON APRN Ot Z79.82 PROGRAM COUNSELOR (CURRENT) USE OF ASPIRIN 12/30/2018 YUDI MORRISON [...] APRN Ot I25.10 ATHSCL HEART DISEASE OF [place] CORONARY 01/06/2019 YUDI MORRISON APRN Ot M86 .9 OSTEOMYELITIS, UNSPECIFIED 01/06/2019 YUDI MORRISON APRN Ot N39 .0 URINARY TRACT INFECTION, SITE NOT SPECIF 01/06/2019 YUDI MORRISON APRN Ot Z79.01 FPC (CURRENT) USE OF ANTICOAGULANT 01/06/2019 YUDI MORRISON APRN Ot Z79.52 PROGRAM COUNSELOR (CURRENT) USE OF SYSTEMIC STER 01/06/2019 YUDI MORRISON APRN Ot Z79.82 PROGRAM COUNSELOR (CURRENT) USE OF ASPIRIN 01/06/2019 YUDI MORRISON [...] OF DISEASES OF THE MS S 01/06/2019 UYDI MORRISON APRN Ot Z90.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 BOTH CERVIX AND UTER 01/06/2019 YUDI MORRISON APRN Ot Z90.89 ACQUIRED ABSENCE OF OTHER ORGANS 01/13/2019 HERNAN CRUZ MD N Ot M86.8X8 OTHER OSTEOMYELITIS, OTHER SITE 01/14/2019 PIERO SOUSA MD Ot I70.235 ATHSCL [place] ARTERIES OF RIGHT LEG W UL 01/14/2019 PIERO SOUSA MD, Ot I70.245 ATHSCL [place] ARTERIES OF LEFT LEG W ULC 01/14/2019 [...] 01/28/2019 PIERO SOUSA MD Ot I70.235 ATHSCL [place] ARTERIES OF RIGHT LEG W 01/28/2019 PIERO SOUSA MD Ot I70.245 ATHSCL [place] ARTERIES OF LEFT LEG W [facility] 01/28/2019 PIERO SOUSA MD, Ot L97.512 NON-PRS [...] 02/02/2019 PIERO SOUSA MD Ot I70.235 ATHSCL [place] ARTERIES OF RIGHT LEG W 02/02/2019 PIERO SOUSA MD Ot I70.245 ATHSCL [place] ARTERIES OF LEFT LEG W [facility] 02/02/2019 PIERO SOUSA MD Ot I96 GANGRENE, [...] 02/15/2019 PIERO SOUSA MD Ot I70.235 ATHSCL [place] ARTERIES OF RIGHT LEG W UL 02/15/2019 PEIRO SOUSA MD Ot I70.245 ATHSCL [place] ARTERIES OF LEFT LEG W ULC 02/15/2019 [...] 02/16/2019 PIERO SOUSA MD Ot I70.235 ATHSCL [place] ARTERIES OF RIGHT LEG W UL 02/16/2019 [...] TOXIC EFFECT OF TOBACCO CIGARETTES, SELF 02/22/2019 ANTHONY CRYSTAL, HERNAN Mead Ot M86.8X8 OTHER OSTEOMYELITIS, OTHER SITE 02/24/2019 ANTHONY CRYSTAL, HERNAN Mead Ot M86.8X8 OTHER OSTEOMYELITIS, OTHER SITE 03/04/2019 ANTHONY CRYSTAL, HERNAN Mead Ot M86.8X8 OTHER OSTEOMYELITIS, OTHER SITE 03/04/2019 ANTHONY CRYSTAL, HERNAN Mead Ot M86.8X8 OTHER OSTEOMYELITIS, OTHER SITE 05/04/2019 DEJA ZHONG APRN Ot 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, 05/04/2019 DEJA ZHONG TRAVELERS' AID WORKER Ot Z13.820 ENCOUNTER FOR SCREENING FOR OSTEOPOROSIS 05/04/2019 DEJA ZHONG TRAVELERS' AID WORKER Ot Z78.0 ASYMPTOMATIC MENOPAUSAL STATE 05/04/2019 MILTON CRYSTAL, HENRY Rodgers Ot M79.605 PAIN IN LEFT LEG 05/04/2019 PIERO SOUSA MD Ot I70.235 ATHSCL [place] ARTERIES OF RIGHT LEG W 05/04/2019 PIERO SOUSA MD Ot I70.245 ATHSCL [place] ARTERIES OF LEFT LEG W [facility] 05/04/2019 PIERO SOUSA MD Ot L97.512 NON-PRS [...] 05/04/2019 PIERO SOUSA MD Ot I70.235 ATHSCL [place] ARTERIES OF RIGHT LEG W 05/04/2019 PIERO SOUSA MD Ot I70.245 ATHSCL [place] ARTERIES OF LEFT LEG W [facility] 05/04/2019 PIERO SOUSA MD Ot I96 GANGRENE, [...] 05/04/2019 PIERO SOUSA MD Ot I70.235 ATHSCL [place] ARTERIES OF RIGHT LEG W 05/04/2019 PIERO SOUSA MD Ot I70.245 ATHSCL [place] ARTERIES OF LEFT LEG W [facility] 05/04/2019 PIERO SOUSA MD Ot I96 GANGRENE, [...] KIDNEY DISEASE, STAGE 4 (SEVERE) 05/04/2019 PIERO SOUAS MD Ot T65.222A TOXIC EFFECT OF TOBACCO CIGARETTES, SELF 05/04/2019 PIERO SOUSA MD Ot F17.218 NICOTINE DEPENDENCE, CIGARETTES, W OTH D 05/04/2019 PIERO SOUSA MD Ot I70.235 ATHSCL [place] ARTERIES OF RIGHT LEG W 05/04/2019 PIERO SOUSA MD Ot I70.245 ATHSCL [place] ARTERIES OF LEFT LEG W [facility] 05/04/2019 PIERO SOUSA MD Ot I96 GANGRENE, [...] 05/04/2019 PIERO SOUSA MD Ot I70.235 ATHSCL [place] ARTERIES OF RIGHT LEG W UL 05/04/2019 PIERO SOUSA MD Ot I96 GANGR[place], NOT ELSEWHERE CLASSIFIED 05/04/2019 PIERO SOUSA MD, Ot L97.512 NON-PRS CHRONIC [...] SERINA Ot I25.10 ATHSCL HEART DISEASE OF [place] CORONARY 05/06/2019 DEL REAL DO, SERINA Ot [...] 05/06/2019 DEL REAL DO SERINA Ot Z79.01 PROGRAM COUNSELOR (CURRENT) USE OF ANTICOAGULANT 05/06/2019 DEL REAL DO SERINA Ot Z79.2 FPC (CURRENT) USE OF ANTIBIOTICS 05/06/2019 DEL REAL DO, SERINA Ot Z79.82 PROGRAM COUNSELOR (CURRENT) USE OF ASPIRIN 05/06/2019 DEL REAL DO, SERINA Ot Z79.89 1 FPC (CURRENT) USE OF OPIATE ANALGE 05/06/2019 DEL REAL DO, SERINA Ot Z79.89 9 OTHER FPC (CURRENT) DRUG THERAPY 05/06/2019 DEL REAL DO [...] SERINA Ot I25.10 ATHSCL HEART DISEASE OF [place] CORONARY 05/06/2019 DEL REAL DO, SERINA Ot [...] 05/06/2019 DEL REALEFREN PORTILLO SERINA Ot Z79.01 PROGRAM COUNSELOR (CURRENT) USE OF ANTICOAGULANT 05/06/2019 GT PORTILLO SERINA Ot Z79.2 PROGRAM COUNSELOR (CURRENT) USE OF ANTIBIOTICS 05/06/2019 DEL REAL DO SERINA Ot Z79.82 FPC (CURRENT) USE OF ASPIRIN 05/06/2019 DEL REAL DO SERINA Ot Z79.89 1 FPC (CURRENT) USE OF OPIATE ANALGE 05/06/2019 GT PROTILLO SERINA Ot Z79.89 9 OTHER FPC (CURRENT) DRUG THERAPY 05/06/2019 DEL REALEFREN PORTILLO SERINA Ot Z86.73 PRSNL HX OF TIA (TIA), AND CEREB INFRC W 05/06/2019 GT PORTILLO SERINA Ot 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 05/06/2019 GT PORTILLO SERINA Ot Z92.21 PERSONAL HISTORY OF ANTINEOPLASTIC CHEMO 05/06/2019 GT PORTILLO SERINA Ot Z92.3 PERSONAL HISTORY OF IRRADIATION Procedures Code Description [place] [address] MAMM OGRAM DX, RIGHT 04/13/2012 14058 MAMM OGRAM, SCREENING 04/14/2012 76027 ROUT INE VENIPUNCTURE 05/12/2012 52851 LIPI D PANEL 05/12/2012 79771 CBC 05/12/2012 97849 CMP 05/12/2012 5141510 GF R CALC (RESULT ONLY) 05/12/2012 73775 TSH 05/12/2012 88384 TRIG JOSY POINT INJ/1-2 MUS 07/14/2012 56026 ROUT INE VENIPUNCTURE 08/10/2012 23405 CMP 08/10/2012 63992 LIPI D PANEL 08/10/2012 8505242 GF R CALC (RESULT ONLY) 08/10/2012 71317 CULT URE URINE 09/21/2012 27650 UA W / CULTURE IF INDICATED 09/21/2012 45533 ROUT INE VENIPUNCTURE 11/24/2012 90493 MARQUITA L PROFILE 11/24/2012 46646 LIPI D PANEL 11/24/2012 73269 MAGNESIUM 11/24/2012 6167151 GF R CALC (RESULT ONLY) 11/24/2012 PRO/CRE UR INE PROTEIN TO CREATNINE RATIO 11/24/2012 Piero Reynolds 11/30/2012 71468 ROUT INE VENIPUNCTURE 01/22/2013 88831 CRP 01/22/2013 32974 RA FACTOR 01/23/2013 ANAANA SOPHIE ANALYZER (SCREEN) 01/23/2013 99566 CCP ANTIBODY 01/23/[address] SOPHIE (RESULT ONLY) 01/25/2013 4983019 IN T DNA (RESULT ONLY) 01/25/2013 6584640 IN T MICHELINE (RESULT ONLY) 01/25/2013 45775 DNA ANTIBODY (DOUBLE STRAND) 01/26/2013 82022 MICHELINE SCR 01/26/2013 22454 JOIN T INJECTION- LARGE JOINT (SPECIFY MEDCIN DESCRIPTION) 02/22 98194 ROUT INE VENIPUNCTURE 02/24/2013 63783 EYE EXAM PERFORMED 02/24/2013 39358 CBC 02/24/2013 32489 INFL UENZA A & B (IN-HOUSE) 03/11/2013 07273 EYE EXAM PERFORMED 03/29/2013 85006 OXIMETRY 04/19/2013 95043 OXIMETRY 05/05/2013 60333 ROUT INE VENIPUNCTURE 2013 30975 CBC 2013 26433 UA W / CULTURE IF INDICATED 09/13/2013 44645 INFL UENZA A & B (IN-HOUSE) 05/04/2014 38825 OXIMETRY 05/04/2014 Results Test Result Range Complete [...] ISOMERS - 06/25/17 19:08 Prescribed Drug 1 [place](TM) NRG COMMENT NRG Amphetamine NEGATIVE ng/mL <250 [...] OF GROWTH Isolated NRG Bacterial blood culture [id number] NRG Bacterial blood culture - 12/19/17 09:24 [...] culture - 07/15/18 12:34 Bacterial urine culture [id number] NRG COLONY COUNT >100,000/ML NRG RML Sensitivity [...] 7-25 CREATININE 1.51 mg/dL 0.60-0.93 eGFR NON-AFR. JAP[place]ESE 34 mL/min/1.73m2 > OR = 60 eGFR [...] - 11/04/18 15 :34 Prescribed Drug 1 [place](TM) NRG Creatinine 90.2 mg/dL > or = [...] 10:40 Bacteria identification in wound by culture [id number] NRG FREE TEXT EXTERNAL SMALL AMOUNT [...] culture - 12/21/18 13:21 Bacterial urine culture [id number] NRG COLONY COUNT >100,000/ML NRG FTX;REPORTABLE SUSCEPTIBILITY [...] culture - 12/25/18 10:20 Bacterial urine culture [id number] NRG COLONY COUNT 10,000 CFU/ML NR Complete [...] g/dL 3.2-4.5 CALCIUM CORRECTED 9.2 mg/dL 8.5-10.1 [facility] - 03/19/19 11:12 GLUCOSE 83 mg/dL 65-99 UREA NITROGEN (BUN) 33 mg/dL 7-25 CREATININE 1.80 mg/dL 0.60-0.93 eGFR NON-AFR. [place] 28 mL/min/1.73m2 > OR = 60 eGFR [...] culture - 05/04/19 13:13 Bacterial urine culture [id number] NRG COLONY COUNT >100,000/ML NRG FTX;REPORTABLE SEE [...] Status Pt. Type Provider Facility Loc./Unit Complaint [id number] 03/19/2019 10:20:00 03/19/2019 23:59:5 9 CLS Outpatient CHRISTA GLORIA APRN [facility] [id number] 03/19/2019 10:20:00 Document Registration [id number] 11/04/2018 14:40:00 Document Registration [id number] 08/13/2018 09:40:00 Document Registration [id number] 01/30/2018 10:40:00 Document Registration [id number] 06/25/2017 18:40:00 Document Registration [id number] 12/20/2016 10:40:00 Document Registration [id number] 06/27/2014 11:17:00 06/27/2014 23:59: 59 CLS Outpatient CHRISTA GLORIA APRN [id number] 05/04/2014 12:42:00 05/04/2014 23:59: 59 CLS Outpatient COLLEEN WAYNE APRN [id number] 04/08/2014 16:11:00 04/08/2014 23:59: 59 CLS Outpatient CHRISTA GLORIA APRN [id number] 12/08/2013 11:03:00 12/08/2013 23:59: 59 CLS Outpatient CHRITSA GLORIA APRN [id number] 09/28/2013 10:06:00 09/28/2013 23:59: 59 CLS Outpatient ONEYDA RUIZ APRN [id number] 09/13/2013 12:07:00 09/13/2013 23:59: 59 CLS Outpatient COLLEEN WAYNE APRN Jovana [id number] 2013 13:19:00 2013 23:59: 59 CLS Outpatient LINDA DO LUANNE [place] [id number] 06/21/2013 16:02:00 06/21/2013 23:59: 59 CLS Outpatient LINDA DO LUANNE [place] [id number] 05/05/2013 10:48:00 05/05/2013 23:59: 59 CLS Outpatient LINDA DO LUANNE [place] [id number] 05/05/2013 10:48:00 05/05/2013 23:59: 59 CLS Outpatient LINDA DO LUANNE [place] [id number] 04/19/2013 09:39:00 04/19/2013 23:59: 59 CLS Outpatient LINDA DO LUANNE [place] [id number] 03/11/2013 14:00:00 03/11/2013 23:59: 59 CLS Outpatient MARCELO WAYNE APRNNE Whaley [id number] 02/24/2013 15:28:00 02/24/2013 23:59: 59 CLS Outpatient LINDA DO LUANNE [place] [id number] 02/22/2013 11:28:00 02/22/2013 23:59: 59 CLS Outpatient LINDA DO LUANNE [place] [id number] 02/22/2013 11:28:00 02/22/2013 23:59: 59 CLS Outpatient LINDA DO LUANNE [place] [id number] 02/11/2013 16:04:00 02/11/2013 23:59: 59 CLS Outpatient HERNAN CRUZ MD [id number] 01/22/2013 08:45:00 01/22/2013 23:59: 59 CLS Outpatient LINDA DO LUANNE [place] [id number] 11/24/2012 08:59:00 11/24/2012 23:59: 59 CLS Outpatient LINDA DOLUANNE [id number] 05/12/2012 08:25:00 05/12/2012 23:59: 59 CLS Outpatient LINDA DO LUANNE [place] [id number] 04/13/2012 09:56:00 04/13/2012 23:59: 59 CLS Outpatient LUANNE LINDA DO [id number] 04/01/2012 12:14:00 04/01/2012 23:59: 59 CLS Outpatient [id number] 01/17/2012 10:03:00 01/17/2012 23:59:5 9 CLS Outpatient LUANNE LINDA DO [id number] 01/17/2012 10:03:00 01/17/2012 23:59: 59 CLS Outpatient [id number] 11/16/2012 14:32:00 Document Registration [id number] 10/19/2012 11:25:00 Document Registration [id number] 09/21/2012 13:09:00 Document Registration [id number] 08/10/2012 09:38:00 Document Registration [id number] 07/14/2012 15:04:00 Document Registration [id number] 07/07/2012 14:09:00 Document Registration [id number] 05/04/2019 14:31:00 18:15:00 DIS Inpatient SREINA DEL REAL DO, V [facility] 4TH TRAE,N/V/D [id number] 03/04/2019 10:26:00 11:10:00 DIS Outpatient HERNAN CRUZ MD Via [facility] OSTEOMYCLITIS OF TOE [id number] 02/12/2019 09:31:00 23:59:59 CLS Outpatient PIERO SOUSA MD Via [facility] WOUNDCARE [id number] 02/05/2019 09:47:00 23:59:59 CLS Outpatient PIERO SOUSA MD Via [facility] WOUNDCARE [id number] 01/29/2019 09:49:00 23:59:59 CLS Outpatient PIERO SOUSA MD [id number] 01/22/2019 10:25:00 23:59:59 CLS Outpatient PIERO SOUSA MD Via [facility] WOUNDCARE [id number] 01/12/2019 13:28:00 23:59:59 CLS Outpatient PIERO SOUSA MD Via [facility] WOUNDCARE [id number] 12/25/2018 11:02:00 14:11:00 DIS Emergency MORRISONYUDI APRN Via [facility] ER POSS SEPTIC [id number] 12/21/2018 14:20:00 13:00:00 DIS Inpatient HERNAN CRUZ MD Via [facility] 4TH SEPSIS;OSTEOMYELITIS;AC [place] RENAL FAILURE;R SHOULD- [id number] 12/16/2018 08:54:00 23:59:59 CLS Preadmit OTHER, UNLISTED Via [facility] RAD AORTIC THROMBUS [id number] 11/11/2018 09:42:00 23:59:59 CLS Preadmit CHRISTA GLORIA Via [facility] REHAB S/P CVA [id number] 10/30/2018 20:04:00 23:06:00 DIS Emergency ALDEN ALVARADO Via [facility] ER R FOOT PAIN [id number] 08/11/2018 12:00:00 23:59:59 CLS Preadmit MARIA DOLORES CRYSTAL FACC, DIMITRI DOWNING CCDS Via [facility] CATH CVA,CAD,HTN,HILARIO [id number] 07/21/2018 11:00:00 12:00:00 DIS Inpatient SERINA DEL REAL DO, V ia [facility] IRF CVA [id number] 07/15/2018 14:10:00 10:45:00 DIS Inpatient HERNAN CRUZ MD Via [facility] 4TH SUBACUTE CVA/UTI [id number] 05/10/2018 08:45:00 23:59:59 CLS Outpatient HENRY ROSE MD Via [facility] RAD POSSIBLE DVT [id number] 05/09/2018 18:24:00 23:00:00 DIS Emergency MICKEY KENNEDY Via [facility] ER VOMITING/L LEG PAIN [id number] 02/12/2018 00:40:00 018 02:35:00 DIS Emergency KEITH FERNANDEZ DO a [facility] ER BLOOD IN URINE [id number] 12/19/2017 08:03:00 018 12:27:00 DIS Emergency HARESH CRYSTAL, GUSTAVO [place] Via [facility] ER ABD PAIN [id number] 09/11/2017 10:45:00 018 23:59:59 CLS Outpatient DEJA ZHONG [employer] Via [facility] RAD ASYMPTOMIC MENOPAUSAL STATE [id number] 08/07/2017 13:34:00 018 17:01:00 DIS Emergency YUDI MORRISON [employer] Via [facility] ER CP, [id number] 05/24/2016 11:42:00 017 17:03:00 DIS Emergency GAGAN CRYSTAL, SERGIO Griffith Via [facility] ER RIGHT SIDE LOWER ABD PA IN/NAUSEA [id number] 03/18/2016 12:32:00 016 13:47:00 DIS Emergency MILTON CRYSTAL, HENRY Rodgers Via [facility] ER RIGHT LEG PAIN [id number] 12/29/2014 10:02:00 015 23:59:59 CLS Preadmit EDDIE GLORIA APRN Via [facility] REHAB [id number] 06/30/2013 07:15:00 014 23:59:59 CLS Outpatient KASIA CHRISTOPHER MD Via [facility] PREOP SCREENING [id number] 12/02/2012 11:53:00 013 23:59:59 CLS Outpatient KASIA CHRISTOPHER MD Via [facility] PREOP SCREENING [id number] 11/06/2012 21:56:00 013 06:50:00 DIS Outpatient LUANNE LINDA DO Via [facility] SLEEP SNORING [id number] 06/05/2019 20:20:00 Document Registration [id number] 12/23/2014 10:01:00 Document Registration [id number] 12/23/2014 10:01:00 Document Registration [id number] 05/06/2012 07:51:00 Document Registration [id number] 04/22/2012 09:16:00 Document Registration [id number] 02/24/2012 10:26:00 Document Registration
== END 2019-06-06 13:24 | disposition home or self-care (01) ==
LOC: EDUNIT# 19:48 → ER 19:49 → ICU 22:44
PROVIDERS: ADMIT Internal Medicine; ATTEND Internal Medicine
DX: I21.4 Non-ST elevation (NSTEMI) myocardial infarction (principal); I65.23 Occlusion and stenosis of bilateral carotid arteries; I25.10 Atherosclerotic heart disease of native coronary artery without angina pectoris; I12.9 Hypertensive chronic kidney disease with stage 1 through stage 4 chronic kidney disease, or unspecified chronic kidney disease; N18.4 Chronic kidney disease, stage 4 (severe); Q60.0 Renal agenesis, unilateral; E78.00 Pure hypercholesterolemia, unspecified; M79.7 Fibromyalgia; K52.9 Noninfective gastroenteritis and colitis, unspecified; M19.90 Unspecified osteoarthritis, unspecified site; E78.5 Hyperlipidemia, unspecified; F32.9 Major depressive disorder, single episode, unspecified; F41.9 Anxiety disorder, unspecified; F17.210 Nicotine dependence, cigarettes, uncomplicated; Z85.44 Personal history of malignant neoplasm of other female genital organs; Z95.1 Presence of aortocoronary bypass graft; Z85.41 Personal history of malignant neoplasm of cervix uteri; Z79.82 Long term (current) use of aspirin; Z79.899 Other long term (current) drug therapy; Z86.73 Personal history of transient ischemic attack (TIA), and cerebral infarction without residual deficits; Z79.01 Long term (current) use of anticoagulants; Z79.891 Long term (current) use of opiate analgesic; Z90.89 Acquired absence of other organs; Z90.710 Acquired absence of both cervix and uterus; Z92.21 Personal history of antineoplastic chemotherapy
CPT/HCPCS: 36415; 71045; 80053; 80061; 83735; 83874; 84484; 85025; 85610; 85730; 93005; 93041

== ENCOUNTER 2019-10-19 10:00 | Day surgery (SDC) | payer MEDICARE ==
[~2019-10-19] VITALS: Ht 152.4 cm; Wt 71.4 kg
[2019-10-19] VITALS (13 sets, daily range): BP systolic 101–193; BP diastolic 49–94
--- OUTSIDE RECORDS SUMMARY | 2019-10-19 08:20 | XMS REPORT | Clinical Summary ---
Author Author [facility] Organization [facility] Address Unknown Phone Unavailable Care Team Providers Care Natural Resources Professor Name Role Phone Alyssa Olson MD Unavailable Luanne Mcbride DO PCP Source Comments Some departments are not documenting in the electronic medical record. If you d o not see the information that you expected, contact Release of Information in [facility] Information Management department at [phone] for further assistan ce in locating additional records.[facility] Allergies No Known Allergies Medications End [...] Health Maintenance Due Date Last Done Comments DTAP/TDAP VACCINES (1 - 06/21/1965 Tdap) HEPATITIS C SCREENING 06/21/1965 PHYSICAL (COMPREHENSIVE) 06/21/1965 EXAM BREAST CANCER SCREENING 1987 COLORECTAL CANCER 06/21/1997 SCREENING SHINGLES RECOMBINANT 06/21/1997 VACCINE (1 of 2) OSTEOPOROSIS 06/21/2012 SCREENING/MONITORING PNEUMONIA (PPSV23) 06/21/2012 VACCINE (1 of 1 - PPSV23) INFLUENZA VACCINE 12/23/2019 Results Not on filefrom Last 3 Months
--- OUTSIDE RECORDS SUMMARY | 2019-10-19 08:21 | XMS REPORT ---
Author Author Eugenio LINDA [facility] Address [address] [place] [address] Care Team Providers Care Loss Prevention Associate Name Role Phone EUGENIO LINDA Unavailable PROBLEMS Type Condition ICD9-CM Code WIA87-MY Code Onset Dates Condition S tatus SNOMED Code Problem Mixed hyperlipidemia E78.2 Active 000924496 Problem Anxiety F41.9 Active 30507486 Problem Other organ or system involvement in systemic julito pus erythematosus M32.19 Active 02169319 Problem Episode of recurrent major d epressive disorder, unspecified depression episode severity F33.9 Active 048561456 Problem Asymptomatic menopausal state Z78.0 Active 71344680 Problem Systemic lupus erythematosus , unspecified SLE type, unspecified organ involvement status M32.9 Active 48982899 Problem Right renal artery stenosis I70.1 Ac tive [id number] Problem Type 2 diabetes mellitus with foot ulcer E11.621 Active 858841859284948 Problem Lumbago with sciatica, right side M54.41 Active 105399016 Problem Non-pressure chronic ulcer o f other part of unspecified foot limited to breakdown of skin L97.501 Active 524654382 Problem Other chronic pain G89.29 Active 8 0847809 Problem Other chronic pain G89.29 Active 8 7764984 Problem Acute right-sided low back pain with right-sided sciatica M54.41 Active 055228666 Problem longterm current use of anticoagulant Z79.01 Active 600006314 Problem 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 91667842 Problem Frequent falls R29.6 Active 03791 2001 Problem HILARIO (obstructive sleep apnea) G47.33 Active 62019886 Problem Cerebrovascular accident (CV A) due to occlusion of other cerebral artery I63.59 Active 807589628 Problem Sciatica M54.30 Active 69444516 Problem Gangrene I96 Active 308113520 Problem Hepatitis C B19.20 Active 26531650 Problem Unsteady gait R26.81 Active 530997 008 Problem Seborrheic keratoses L82.1 Active 218457659 Problem Non-pressure chronic ulcer o f other part of unspecified foot limited to breakdown of skin L97.501 Active 618472003 Problem Urinary frequency R35.0 Active 16 4277631 Problem Necrosis I96 Active 768616946 Problem 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 Active 421934885 Problem Type 2 diabetes mellitus with foot ulcer E11.621 Active 027275174971213 Problem Arterial insufficiency of lower extremity I73.9 Active 674801923189393 Problem Ventricular tachycardia I47.2 Active 80748369 Problem Atherosclerosis of renal artery I70.1 Active 000298139146699 Problem long term care administrator 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 Z79 .01 Active 626177927 Problem 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 Active 683918712 Problem Chronic anticoagulation Z79.01 Active 437865386 Problem Sialoadenitis, unspecified K11.20 Act gulshan 45269547 Problem Current moderate episode of major depressive disorder without prior episode F32.1 Active 75051554 Problem Body mass index (BMI) 29.0-29.9, adult Z68.29 Active 065472410 Problem Systolic congestive heart failure, unspecified HF chronici ty I50.20 Active 31302951 Problem Hypertension I10 Active 3628409 3 Problem Cardiomyopathy of undetermined type I42.9 Active 48308160 ALLERGIES No Information ENCOUNTERS Encounter Location Date Diagnosis [place] [address] [facility] [id number] [address] [place] [phone] 08 Sep, 2019 [facility], [place] [address] [facility] [id number] [address] [place] [phone] Aug, Other chronic pain G89.29 [place] [address] [place] [id number] [address] [place] [phone] Aug, [facility], [place] [address] [place] [id number] [address] [place] [phone] July, Other chronic pain G89.29 [place] [id number] [facility] [id number] [address] [place] [id number] 30 Jun, 2019 Other chronic pain G89.29 [facility], [place] [address] [facility] [id number] [address] [place] [phone] 14 Jun, 2019 Frequent headaches R51 [facility], [place] [address] [facility] [id number] [address] [place] [phone] 03 Jun, 2019 Systolic congestive heart fa ilure, unspecified HF chronicity I50.20 ; Type 2 diabetes mellitus with foot ulcer E11.621 and Coronary artery disease of chenega artery of chenega heart with stable angina pectoris I25.118 [facility], [place] [address] [facility] [id number] [address] [place] [phone] Jun, Other chronic pain G89.29 [place] [address] [facility] [id number] [address] [place] [phone] 16 May, 2019 [place] [address] [place] [id number] [place] [phone] May, Other chronic pain G89.29 [facility], [place] [address] [facility] [id number] [address] [place] [phone] Apr, Atherosclerosis of renal art taurus I70.1 ; Cardiomyopathy of undetermined type I42.9 and Ventricular tachycardia I47.2 [facility], [place] [address] [facility] [id number] [address] [place] [id number] 14 Apr, 2019 [facility] [address] [facility] [id number] [address] [place] [id number] 11 Apr, 2019 Non-intractable vomiting wit h nausea, unspecified vomiting type R11.2 [facility], [place] [address] [facility] [id number] [address] [place] [phone] 03 Apr, 2019 Other chronic pain G89.29 [facility], [place] [address] [facility] [id number] [address] [place] [phone] Mar, Other chronic pain G89.29 [place] [address] [facility] [id number] [address] [place] [phone] Feb, Renal insufficiency N28.9 [facility], [place] [address] [id number] [address] [place] [phone] Feb, [facility], [place] [address] [facility] [id number] [address] [place] [phone] Feb, Frequent headaches R51 and H ypertension I10 [facility], [place] [address] [facility] [id number] [address] [place] [id number] Feb, Other chronic pain G89.29 [facility], [place] [address] [facility] [id number] [address] [place] [phone] Jan, Encounter for Medicare annua l wellness exam Z00.00 ; Arterial insufficiency of lower extremity [...] episode F32.1 and Encounter for immunization Z23 [facility], [place] [address] [facility] [id number] [address] [place] [phone] Jan, [facility], [place] [address] [facility] [id number] [address] [place] [phone] Jan, Other chronic pain G89.29 [facility], [place] [address] [facility] [id number] [address] [place] [phone] Dec, [facility], [place] [address] [facility] [id number] [address] [place] [phone] Dec, Hypokalemia E87.6 [place] [address] [facility] [id number] [address] [place] [phone] 15 Dec, 2018 Nausea R11.0 [facility], [place] [address] [facility] [id number] [address] [place] [phone] 14 Dec, 2018 Other chronic pain G89.29 [facility] [place] [address] [facility] [id number] [address] [place] [phone] Dec, Systolic congestive heart fa ilure, unspecified HF chronicity I50.20 and Ventricular tachycardia I47.2 [facility] [place] [address] [place] [id number] [address] [place] [phone] Dec, [facility], [place] [address] [place] [id number] [address] [place] [phone] Nov, Other chronic pain G89.29 [place] [address] [place] [phone] Nov, Nausea with vomiting, unspec ified R11.2 [place] [address] [place] [id number] [place] [phone] Oct, [place] [address] [place] [id number] [place] [phone] Oct, Other chronic pain G89.29 [place] [address] [phone] Oct, [facility], [place] [address] [id number] Oct, Arterial insufficiency of lo wer extremity I73.9 and High risk medication use Z79.899 [facility] [address] [place] [id number] [address] [place] [phone] Oct, Type 2 diabetes mellitus wit h foot ulcer E11.621 and Non-pressure chronic ulcer of other part of unspecified foot limited to breakdown of skin L97.501 [facility] [address] [place] [id number] [address] [place] [phone] Oct, Gangrene I96 [facility], [place] [address] [place] [id number] [place] [phone] Sep, Other chronic pain G89.29 [facility], [place] [address] [place] [id number] [address] [place] [phone] Sep, Status post CVA Z86.73 ; Uns teady gait R26.81 and Frequent falls R29.6 [place] [address] [facility] [id number] [address] [place] [phone] Sep, Nausea with vomiting, unspec ified R11.2 [place] [address] [facility] [id number] [address] [place] [phone] Sep, Other chronic pain G89.29 [place] [address] [facility] [id number] [address] [place] [id number] Aug, [place] [address] [facility] [id number] [address] [place] [phone] Aug, Other chronic pain G89.29 [place] [address] [facility] [id number] [address] [place] [phone] July, long term care administrator current use of ant icoagulant Z79.01 and Cerebrovascular accident (CVA) due to occlusion of other cerebral artery I63.59 [place] [address] [facility] [id number] [address] [place] [phone] July, Renal insufficiency N28.9 [place] [address] [facility] [id number] [address] [place] [phone] July, Cerebrovascular accident (CV A) due to occlusion of other cerebral artery I63.59 and Unexplained weight loss R63.4 [place] [address] [facility] [id number] [address] [place] [phone] July, [place] [address] [facility] [id number] [address] [place] [phone] July, [place] [address] [facility] [id number] [address] [place] [phone] July, Unexplained weight loss R63. 4 and long term care administrator current use of anticoagulant Z79.01 [place] [address] [facility] [id number] [address] [place] [phone] July, Other chronic pain G89.29 [place] [address] [facility] [id number] [address] [place] [phone] Jun, Other chronic pain G89.29 [facility], [place] [address] [id number] [address] [place] [id number] May, Unexplained weight loss R63. 4 [facility], [place] [address] [facility] [id number] [address] [place] [phone] May, Nausea with vomiting, unspec ified R11.2 [facility], [place] [address] [facility] [id number] [address] [place] [phone] May, Non-recurrent acute suppurat gulshan otitis media of right ear without spontaneous rupture of tympanic membrane H66.001 and Chronic anticoagulation Z79.01 [facility], [place] [address] [facility] [id number] [address] [place] [phone] May, Other chronic pain G89.29 [facility] [address] [facility] [id number] [address] [place] [phone] Apr, Skin tear of right forearm w ithout complication, initial encounter S51.811A ; Skin tear of left forearm without complication, initial encounter S51.812A and Encounter for immunization Z23 [facility], [place] [address] [facility] [id number] [address] [place] [phone] Apr, [facility], [place] [address] [facility] [id number] [address] [place] [phone] Apr, Diarrhea, unspecified R19.7 ; Nausea with vomiting, unspecified R11.2 and 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 [facility] [place] [address] [facility] [id number] [address] [place] [phone] Apr, Other chronic pain G89.29 [facility], [place] [address] [facility] [id number] [address] [place] [phone] Mar, Other chronic pain G89.29 [facility], [place] [address] [facility] [id number] [address] [place] [phone] Mar, Other chronic pain G89.29 [facility], [place] [address] [id number] [address] [place] [phone] 08 Mar, 2018 [facility], [place] [address] [id number] [address] [place] [phone] Mar, Other organ or system involv ement in systemic lupus erythematosus M32.19 [facility], [place] [address] [id number] [address] [place] [id number] Mar, Non-recurrent acute suppurat gulshan otitis media of right ear without spontaneous rupture of tympanic membrane H66.001 and Chronic anticoagulation Z79.01 [facility] [address] [id number] [address] [place] [phone] Feb, Sialoadenitis, unspecified K 11.20 [facility], [place] [address] [id number] [address] [place] [id number] Feb, Other chronic pain G89.29 [facility], [place] [address] [id number] [address] [place] [phone] Jan, long term care administrator current use of ant icoagulant therapy Z79.01 [facility], [place] [address] [id number] [address] [place] [phone] Jan, Other chronic pain G89.29 ; Lumbago with sciatica, right side M54.41 ; Other chronic pain G89.29 ; Tobacco abuse Z72.0 ; Tobacco abuse counseling Z71.6 ; Mixed hyperlipidemia E78.2 and longterm 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 Z79.01 [facility], [place] [address] [id number] [address] [place] [phone] Jan, [facility], [place] [address] [id number] [address] [place] [phone] Dec, [facility], [place] [address] [id number] [address] [place] [phone] Dec, [facility], [place] [address] [id number] [address] [place] [phone] Dec, [facility], [place] [address] [facility] [id number] [address] [place] [phone] Dec, Mixed hyperlipidemia E78.2 ; Other chronic [...] in systemic lupus erythematosus M32.19 [facility] [address] [place] [id number] Dec, Right renal artery stenosis I70.1 ; Othe r organ or system involvement in systemic lupus erythematosus M32.19 ; Hepatitis C B19.20 ; Tobacco abuse Z72.0 and Weakness R53.1 [facility] [address] [place] [id number] Dec, [facility], [place] [address] [facility] [id number] [address] [place] [phone] Dec, [facility], [place] [address] [facility] [id number] [address] [place] [phone] Dec, Other organ or system involv ement in systemic lupus erythematosus M32.19 [facility] [address] [place] [id number] Dec, Right renal artery stenosis I70.1 ; Inju ry of right kidney, sequela S37.001S ; Tobacco abuse Z72.0 ; Systemic lupus erythematosus, unspecified SLE type, unspecified organ involvement status M32.9 ; Hepatitis C B19.20 and Candidiasis of female genitalia B37.3 [facility], [place] [address] [facility] [id number] [address] [place] [phone] 05 Dec, 2017 Other organ or system involv ement in systemic lupus erythematosus M32.19 [facility], [place] [address] [facility] [id number] [address] [place] [phone] Dec, Other organ or system involv ement in systemic lupus erythematosus M32.19 [facility], [place] [address] [id number] [address] [place] [phone] Dec, [facility], [place] [address] [id number] [address] [place] [phone] Nov, Other organ or system involv ement in systemic lupus erythematosus M32.19 [facility] [place] [address] [id number] [address] [place] [phone] Oct, Other organ or system involv ement in systemic lupus erythematosus M32.19 [facility], [place] [address] [id number] [address] [place] [phone] Sep, Other organ or system involv ement in systemic lupus erythematosus M32.19 [facility], [place] [address] [id number] [address] [place] [phone] Aug, Anxiety F41.9 [facility], [place] [address] [id number] [address] [place] [phone] Aug, Other organ or system involv ement in systemic lupus erythematosus M32.19 [facility], [place] [address] [id number] [address] [place] [phone] July, Medicare annual wellness vis it, initial Z00.00 ; Anxiety F41.9 ; HILARIO (obstructive sleep apnea) G47.33 ; Hepatitis C B19.20 ; Other chronic pain G89.29 ; Asymptomatic menopausal state Z78.0 and Episode of recurrent major depressive disorder, unspecified depression episode severity F33.9 [facility], [place] [address] [id number] [address] [place] [phone] July, Anxiety F41.9 [facility], [place] [address] [id number] [address] [place] [phone] July, Other organ or system involv ement in systemic lupus erythematosus M32.19 [facility], [place] [address] [id number] [address] [place] [phone] July, [facility], [place] [address] [id number] [address] [place] [phone] Jun, Other organ or system involv ement in systemic lupus erythematosus M32.19 ; BMI 40.0-44.9, adult Z68.41 ; Other chronic pain G89.29 and Controlled substance agreement signed Z79.899 [facility], [place] [address] [facility] [id number] [address] [place] [phone] 08 May, 2017 Sciatica M54.30 [facility], [place] [address] [id number] [address] [place] [phone] Apr, Sciatica M54.30 [facility], [place] [address] [facility] [id number] [address] [place] [phone] Mar, Sciatica M54.30 [facility], [place] [address] [facility] [id number] [address] [place] [phone] Feb, Sciatica M54.30 [place] [address] [facility] [id number] [address] [place] [id number] 15 Jan, 2017 Sciatica M54.30 [place] [address] [facility] [id number] [address] [place] [phone] 14 Jan, 2017 Sciatica M54.30 [place] [address] [facility] [id number] [address] [place] [phone] Dec, Sciatica M54.30 [place] [address] [facility] [id number] [address] [place] [phone] 18 Dec, 2016 Sciatica M54.30 [facility] [place] [address] [facility] [id number] [address] [place] [phone] 29 Nov, 2016 Mixed hyperlipidemia E78.2 ; Chronic seasonal allergic rhinitis due to other allergen J30.2 and Family history of early CAD Z82.49 [facility], [place] [address] [facility] [id number] [address] [place] [phone] Nov, Sciatica M54.30 [facility] [place] [address] [facility] [id number] [address] [place] [phone] 18 Nov, 2016 Mixed hyperlipidemia E78.2 ; Chronic seasonal allergic rhinitis due to other allergen J30.2 ; Family history of early CAD Z82.49 ; Other chronic pain G89.29 and Pain in left shoulder M25.512 [facility], [place] [address] [facility] [id number] [address] [place] [phone] Nov, Acute pain of left shoulder M25.512 [facility], [place] [address] [facility] [id number] [address] [place] [phone] Oct, Sciatica M54.30 [place] [address] [facility] [id number] [address] [place] [phone] Oct, [place] [address] [place] [id number] [place] [phone] Sep, Sciatica M54.30 [place] [address] [place] [id number] [place] [phone] Sep, Acute pain of left shoulder M25.512 [facility], [place] [address] [place] [id number] [address] [place] [phone] Sep, Acute pain of left shoulder M25.512 [place] [address] [phone] Aug, Sciatica M54.30 [place] [address] [place] [id number] [place] [phone] Aug, Sciatica M54.30 ; Tobacco ab use Z72.0 and Tobacco abuse counseling Z71.6 [facility], [place] [address] [place] [id number] [address] [place] [phone] Aug, Acute pain of left shoulder M25.512 [facility] [address] [place] [id number] [place] [phone] Aug, Contusion of right shoulder, initial encounter S40.011A ; Acute pain of left shoulder M25.512 and Shortness of breath R06.02 [place] [address] [place] [id number] [address] [place] [id number] Aug, Lumbago with sciatica, right side M54.41 [facility] [place] [address] [facility] [id number] [address] [place] [phone] July, [facility] [place] [address] [facility] [id number] [address] [place] [phone] July, Lumbago with sciatica, right side M54.41 [facility] [place] [address] [facility] [id number] [address] [place] [phone] Jun, Lumbago with sciatica, right side M54.41 [facility] [place] [address] [facility] [id number] [address] [place] [phone] May, Lumbago with sciatica, right side M54.41 [facility] [facility] [address] [facility] [id number] [address] [place] [address] May, Herpes zoster without compli cation B02.9 [facility] [address] [facility] [id number] [address] [place] [address] May, Back pain M54.9 and Acute ri ght-sided low back pain with right-sided sciatica M54.41 [facility] [place] [address] [facility] [id number] [address] [place] [address] Apr, [facility] [place] [address] [place] [id number] [address] [place] [address] Apr, Lumbago with sciatica, right side M54.41 and Other chronic pain G89.29 [facility] [place] [address] [facility] [id number] [address] [place] [address] Apr, [facility] [place] [address] [id number] [address] [place] [phone] Mar, [facility] [place] [address] [facility] [id number] [address] [place] [address] Mar, [facility] [place] [address] [id number] [address] [place] [address] Feb, [facility] [address] [facility] [id number] [address] [place] [address] Jan, Urinary frequency R35.0 [facility] [place] [address] [facility] [id number] [address] [place] [phone] Jan, [facility] [place] [address] [facility] [id number] [address] [place] [address] Dec, [facility] [place] [address] [facility] [id number] [address] [place] [phone] Oct, [facility] [place] [address] [facility] [id number] [address] [place] [address] Sep, [facility] [address] [facility] [id number] [address] [place] [address] Sep, Foreign body in left foot, i nitial encounter S90.852A [facility] [place] [address] [place] [id number] [address] [place] [address] Aug, [facility] [place] [address] [id number] [address] [place] [address] July, Sciatica M54.30 [facility] [place] [address] [address] [id number] [address] [place] [address] Jun, [facility] [place] [address] [id number] [address] [place] [address] May, Osteoarthritis M19.90 [facility] [place] [address] [facility] [id number] [address] [place] [address] May, [facility] [place] [address] [facility] [id number] [address] [place] [address] May, Pain in right hip M25.551 [facility] [address] [facility] [id number] [address] [place] [phone] May, Tinea corporis B35.4 [facility] [place] [address] [facility] [id number] [address] [place] [address] Apr, Pain in right hip M25.551 [facility] [place] [address] [id number] [address] [place] [address] Mar, Pain in right hip M25.551 [facility] [place] [address] [id number] [address] [place] [phone] Mar, [facility] [place] [address] [id number] [address] [place] [phone] Feb, Pain in right hip M25.551 [facility] [place] [address] [id number] [address] [place] [phone] Jan, Acute bronchitis, unspecifie d organism J20.9 and Cough R05 [facility] [place] [address] [id number] [address] [place] [address] Jan, Pain in right hip M25.551 [facility] [place] [address] [id number] [address] [place] [address] Dec, Pain in right hip M25.551 [facility] [place] [address] [id number] [address] [place] [phone] Nov, Acute bronchitis 466.0 [facility] [place] [address] [id number] [address] [place] [id number] Nov, [facility] [place] [address] [id number] [address] [place] [phone] Oct, [facility] [place] [address] [id number] [address] [place] [id number] Sep, [facility] [place] [address] [id number] [address] [place] [phone] Aug, [facility] [place] [address] [id number] [address] [place] [phone] July, [facility] [place] [address] [id number] [address] [place] [phone] Jun, [facility] [place] [address] [id number] [address] [place] [address], [place] [address] 13 Jun, 2014 [facility] [address] [id number] [address] [place] [address], [place] [address] 18 May, 2014 [facility] [address] [id number] [address] [place] [address], [place] [address] 18 May, 2014 [facility] [address] [id number] [address] [place] [address], [place] [address] 17 Apr, 2014 [facility] [address] [id number] [address] [place] [address], [place] [address] Apr, 2014 [facility] [address] [id number] [address] [place] [address], [place] [address] Apr, 2014 [facility] [address] [id number] [address] [place] [address], [place] [address] Apr, 2014 [facility] [address] [id number] [address] [place] [address], [place] [address] Apr, 2014 [facility] [address] [id number] [address] [place] [address], [place] [address] 06 Apr, 2014 [facility] [address] [id number] [address] [place] [address], [place] [address] Mar, [facility] [address] [id number] [address] [place] [address], [place] [address] 16 Mar, 2014 [facility] [address] [id number] [address] [place] [address], [place] [address] Feb, [facility] [address] [id number] [address] [place] [id number] Feb, [facility] [address] [id number] [address] [place] [address], [place] [address] Feb, [facility] [address] [id number] [address] [place] [address], [place] [address] Dec, [facility] [address] [id number] [address] [place] [address], [place] [address] Dec, [facility] [address] [id number] [address] [place] [address], [place] [address] Nov, [facility] [address] [id number] [address] [place] [address], [place] [address] Nov, [facility] [address] [id number] [address] [place] [address], [place] [address] Nov, [facility] [address] [id number] [address] [place] [address], [place] [address] Nov, [facility] [address] [id number] [address] [place] [address], [place] [address] Sep, [facility] [address] [id number] [address] [place] [address], [place] [address] Sep, [facility] [address] [id number] [address] [place] [address], [place] [address] Sep, [facility] [address] [id number] [address] [place] [address], [place] [address] Sep, [facility] [address] [id number] [address] [place] [address], [place] [address] Aug, [facility] [address] [id number] [address] [place] [address], [place] [address] Aug, [facility] [address] [id number] [address] [place] [address], [place] [address] Aug, [facility] [address] [id number] [address] [place] [address], [place] [address] Aug, [facility] [address] [id number] [address] [place] [address], [place] [address] July, [facility] [address] [id number] [address] [place] [address], [place] [address] July, [facility] [address] [id number] [address] [place] [address], [place] [address] Jun, [facility] [address] [id number] [address] [place] [address], [place] [address] Jun, [facility] [address] [id number] [facility] [address] Jun, [facility] [address] [id number] [address] [place] [address], [place] [address] Jun, [facility] [address] [id number] [address] [place] [address], [place] [address] Jun, [facility] [address] [id number] [address] [place] [address], [place] [address] Jun, [facility] [address] [id number] [address] [place] [address], [place] [address] Jun, [facility] [address] [id number] [address] [place] [address], [place] [address] Jun, [facility] [address] [id number] [address] [place] [address], [place] [address] May, [facility] [address] [id number] [address] [place] [address], [place] [address] May, [facility] [address] [id number] [address] [place] [address], [place] [address] May, [facility] [address] [id number] [address] [place] [address], [place] [address] May, [facility] [address] [id number] [address] [place] [address], [place] [address] May, [facility] [address] [id number] [address] [place] [address], [place] [address] May, [facility] [address] [id number] [address] [place] [address], [place] [address] Apr, [facility] [address] [id number] [address] [place] [address], [place] [address] Apr, [facility] [address] [id number] [address] [place] [address], [place] [address] Apr, [facility] [address] [id number] [address] [place] [address], [place] [address] Apr, [facility] [address] [id number] [address] [place] [address], [place] [address] Mar, [facility] [address] [id number] [address] [place] [address], [place] [address] Mar, [facility] [address] [id number] [address] [place] [address], [place] [address] Mar, [facility] [address] [id number] [address] [place] [address], [place] [address] Mar, [facility] [address] [id number] [address] [place] [address], [place] [address] Mar, [facility] [address] [id number] [address] [place] [address], [place] [address] Mar, [facility] [address] [id number] [address] [place] [address], [place] [address] Feb, [facility] [address] [id number] [address] [place] [address], [place] [address] Feb, [facility] [address] [id number] [address] [place] [address], [place] [address] Feb, [facility] [address] [id number] [address] [place] [address], [place] [address] Feb, [facility] [address] [id number] [address] [place] [address], [place] [address] Feb, [facility] [address] [id number] [address] [place] [address], [place] [address] Feb, [facility] [address] [id number] [address] [place] [address], [place] [address] Feb, [facility] [address] [id number] [address] [place] [address], [place] [address] Feb, [facility] [address] [id number] [address] [place] [address] Feb, [facility] [address] [id number] [address] [place] [address], [place] [address] Feb, [facility] [address] [id number] [address] [place] [address] Feb, [facility] [address] [id number] [address] [place] [address], [place] [address] Feb, [facility] [address] [id number] [address] [place] [address] Jan, [facility] [address] [id number] [address] [place] [address], [place] [address] Jan, [facility] [address] [id number] [address] [place] [address] Jan, [facility] [address] [id number] [address] [place] [address] Jan, [facility] [address] [id number] [address] [place] [address] Jan, [facility] [address] [id number] [address] [place] [address] Jan, [facility] [address] [id number] [address] [place] [address] Jan, [facility] [address] [id number] [address] [place] [address] Jan, [facility] [address] [id number] [address] [place] [address] Jan, [facility] [address] [id number] [address] [place] [address] Jan, [facility] [address] [id number] [address] [place] [address] Dec, [facility] [address] [id number] [address] [place] [address] Dec, [facility] [address] [id number] [address] [place] [address], [place] [address] Nov, 2012 [facility] [address] [id number] [address] [place] [address], [place] [address] Nov, 2012 [facility] [address] [id number] [address] [place] [address], [place] [address] Nov, 2012 [facility] [address] [id number] [address] [place] [address], [place] [address] 05 Nov, 2012 [facility] [address] [id number] [address] [place] [address], [place] [address] Nov, 2012 [facility] [address] [id number] [address] [place] [address], [place] [address] Oct, [facility] [address] [id number] [address] [place] [address], [place] [address] Oct, [facility] [address] [id number] [address] [place] [address], [place] [address] Oct, [facility] [address] [id number] [address] [place] [address], [place] [address] Oct, [facility] [address] [id number] [address] [place] [address], [place] [address] Oct, [facility] [address] [id number] [address] [place] [address], [place] [address] Sep, [facility] [address] [id number] [address] [place] [address], [place] [address] Sep, [facility] [address] [id number] [address] [place] [address], [place] [address] Sep, [facility] [address] [id number] [address] [place] [address], [place] [address] Sep, [facility] [address] [id number] [address] [place] [address], [place] [address] Sep, [facility] [address] [id number] [address] [place] [address], [place] [address] Sep, [facility] [address] [id number] [address] [place] [address], [place] [address] Aug, [facility] [address] [id number] [address] [place] [address], [place] [address] Aug, [facility] [address] [id number] [address] [place] [address], [place] [address] July, [facility] [address] [id number] [address] [place] [address], [place] [address] July, [facility] [address] [id number] [address] [place] [address], [place] [address] July, [facility] [address] [id number] [address] [place] [address], [place] [address] Jun, [facility] [address] [id number] [address] [place] [address], [place] [address] Jun, [facility] [address] [id number] [address] [place] [address], [place] [address] Jun, [facility] [address] [id number] [address] [place] [address], [place] [address] Jun, [facility] [address] [id number] [address] [place] [address], [place] [address] May, [facility] [address] [id number] [address] [place] [address], [place] [address] May, [facility] [address] [id number] [address] [place] [address], [place] [address] Apr, [facility] [address] [id number] [address] [place] [address], [place] [address] Apr, [facility] [address] [id number] [address] [place] [address], [place] [address] Apr, [facility] [address] [id number] [address] [place] [address], [place] [address] Apr, [facility] [address] [id number] [address] [place] [address], [place] [address] Apr, [facility] [address] [id number] [address] [place] [address], [place] [address] Apr, [facility] [address] [id number] [address] [place] [address], [place] [id number] Apr, [facility] [address] [id number] [address] [place] [address], [place] [address] Apr, [facility] [address] [id number] [address] [place] [address], [place] [address] Mar, [facility] [address] [id number] [address] [place] [address], [place] [address] Mar, [facility] [address] [id number] [address] [place] [address], [place] [address] Mar, [facility] [address] [id number] [address] [place] [address], [place] [address] Mar, [facility] [address] [id number] [address] [place] [address], [place] [address] Jan, [facility] [address] [id number] [address] [place] [address], [place] [address] Jan, [facility] [address] [id number] [address] [place] [address], [place] [address] Jan, [facility] [address] [id number] [address] [place] [address], [place] [address] Jan, [facility] [address] [id number] [address] [place] [address], [place] [address] Jan, [facility] [address] [id number] [address] [place] [address], [place] [address] Dec, [facility] [address] [id number] [address] [place] [address], [place] [address] Dec, [facility] [address] [id number] [address] [place] [address], [place] [address] Dec, [facility] [address] [id number] [address] [place] [address], [place] [address] Dec, [facility] [address] [id number] [address] [place] [address], [place] [address] Nov, [facility] [address] [id number] [address] [place] [address], [place] [address] Oct, [facility] [address] [id number] [address] [place] [address], [place] [address] Oct, [facility] [address] [id number] [address] [place] [address], [place] [address] Oct, [facility] [address] [id number] [address] [place] [address], [place] [address] Oct, [facility] [address] [id number] [address] [place] [address], [place] [address] Oct, [facility] [address] [id number] [address] [place] [address], [place] [address] Sep, [facility] [address] [id number] [address] [place] [address], [place] [address] Sep, [facility] [address] [id number] [address] [place] [address], [place] [address] Aug, [facility] [address] [id number] [address] [place] [address], [place] [address] Aug, [facility] [address] [id number] [address] [place] [address], [place] [address] Aug, [facility] [address] [id number] [address] [place] [address], [place] [address] Aug, [facility] [address] [id number] [address] [place] [address], [place] [address] July, [facility] [address] [id number] [address] [place] [address], [place] [address] Jun, [facility] [address] [id number] [address] [place] [id number] 28 May, 2011 [facility] [address] [id number] [address] [place] [address], [place] [address] 27 May, 2011 [facility] [address] [id number] [address] [place] [address], [place] [address] 12 May, 2011 [facility] [address] [id number] [address] [place] [address], [place] [address] 30 Mar, 2011 [facility] [address] [id number] [address] [place] [address], [place] [address] Feb, [facility] [address] [id number] [address] [place] [address], [place] [address] Feb, [facility] [address] [id number] [address] [place] [address], [place] [address] Jan, [facility] [address] [id number] [address] [place] [address], [place] [address] Jan, [facility] [address] [id number] [address] [place] [address], [place] [address] Jan, [facility] [address] [id number] [address] [place] [address], [place] [address] Jan, [facility] [address] [id number] [address] [place] [address], [place] [address] 30 Jan, 2010 [facility] [address] [id number] [address] [place] [address], [place] [address] 20 Dec, 2009 [facility] [address] [id number] [address] [place] [address], [place] [address] Dec, [facility] [address] [id number] [address] [place] [address], [place] [address] Dec, [facility] [address] [id number] [address] [place] [address], [place] [address] 18 May, 2009 [facility] [address] [id number] [address] [place] [address], [place] [address] 15 May, 2009 [facility] [address] [facility] [id number] [address] [place] [id number] 17 Apr, 2009 [facility] [place] [address] [facility] [id number] [address] [place] [phone] Jan, [facility] [place] [address] [facility] [id number] [address] [place] [address] Apr, IMMUNIZATIONS No Known Immunizations SOCIAL HISTORY [...] for cancer Hospitalization History surgeries Hospitalization History [facility] ER, heart- kidney- Stayed a [facility] ICU 12/2017 Hospitalization History [facility] ER 03/2018 Hospitalization History [facility]- Stroke 2 weeks 06/2018 Hospitalization History ER 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
--- OUTSIDE RECORDS SUMMARY | 2019-10-19 08:21 | XMS REPORT ---
Author Author Eugenio LINDA [facility] Address [address] [place] [address] Care Team Providers Care Heel Emery Buffer Name Role Phone EUGENIO LINDA Unavailable PROBLEMS Type Condition ICD9-CM Code DNX48-IU Code Onset Dates Condition S tatus SNOMED Code Problem Mixed hyperlipidemia E78.2 Active 101510587 Problem Anxiety F41.9 Active 16593751 Problem Other organ or system involvement in systemic julito pus erythematosus M32.19 Active 81546570 Problem Episode of recurrent major d epressive disorder, unspecified depression episode severity F33.9 Active 870422342 Problem Asymptomatic menopausal state Z78.0 Active 37629843 Problem Systemic lupus erythematosus , unspecified SLE type, unspecified organ involvement status M32.9 Active 92884782 Problem Right renal artery stenosis I70.1 Ac tive [id number] Problem Type 2 diabetes mellitus with foot ulcer E11.621 Active 924226124258809 Problem Lumbago with sciatica, right side M54.41 Active 866769685 Problem Non-pressure chronic ulcer o f other part of unspecified foot limited to breakdown of skin L97.501 Active 112354866 Problem Other chronic pain G89.29 Active 8 6709454 Problem Other chronic pain G89.29 Active 8 3936738 Problem Acute right-sided low back pain with right-sided sciatica M54.41 Active 835941883 Problem senior living current use of anticoagulant Z79.01 Active 791656048 Problem 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 35519929 Problem Frequent falls R29.6 Active 91371 2001 Problem HILARIO (obstructive sleep apnea) G47.33 Active 50420441 Problem Cerebrovascular accident (CV A) due to occlusion of other cerebral artery I63.59 Active 984446131 Problem Sciatica M54.30 Active 89087104 Problem Gangrene I96 Active 700362779 Problem Hepatitis C B19.20 Active 56784768 Problem Unsteady gait R26.81 Active 283756 008 Problem Seborrheic keratoses L82.1 Active 341503988 Problem Non-pressure chronic ulcer o f other part of unspecified foot limited to breakdown of skin L97.501 Active 361227966 Problem Urinary frequency R35.0 Active 16 1379549 Problem Necrosis I96 Active 046050622 Problem 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 Active 771235813 Problem Type 2 diabetes mellitus with foot ulcer E11.621 Active 188050715625956 Problem Arterial insufficiency of lower extremity I73.9 Active 337261598891133 Problem Ventricular tachycardia I47.2 Active 00100659 Problem Atherosclerosis of renal artery I70.1 Active 835088448597106 Problem 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 Active 027058566 Problem 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 Active 327290375 Problem Chronic anticoagulation Z79.01 Active 308392070 Problem Sialoadenitis, unspecified K11.20 Act gulshan 13508696 Problem Current moderate episode of major depressive disorder without prior episode F32.1 Active 17785625 Problem Body mass index (BMI) 29.0-29.9, adult Z68.29 Active 930776158 Problem Systolic congestive heart failure, unspecified HF chronici ty I50.20 Active 94647376 Problem Hypertension I10 Active 2186725 3 Problem Cardiomyopathy of undetermined type I42.9 Active 23422342 ALLERGIES No Information ENCOUNTERS Encounter Location Date Diagnosis [place] [address] [facility] [id number] [address] [place] [address] 08 Sep, 2019 [facility] [address] [facility] [id number] [address] [place] [address] Aug, Other chronic pain G89.29 [place] [address] [place] [id number] [address] [place] [address] Aug, [facility] [address] [place] [id number] [address] [place] [address] July, Other chronic pain G89.29 [place] [address] [facility] [id number] [address] [place] [address] 30 Jun, 2019 Other chronic pain G89.29 [facility] [address] [facility] [id number] [address] [place] [address] 14 Jun, 2019 Frequent headaches R51 [facility] [address] [facility] [id number] [address] [place] [address] 03 Jun, 2019 Systolic congestive heart fa ilure, unspecified HF chronicity I50.20 ; Type 2 diabetes mellitus with foot ulcer E11.621 and Coronary artery disease of [place] artery of [place] heart with stable angina pectoris I25.118 [facility] [address] [facility] [id number] [address] [place] [address] Jun, Other chronic pain G89.29 [place] [address] [facility] [id number] [address] [place] [address] 16 May, 2019 [place] [address] [place] [id number] [place] [address] May, Other chronic pain G89.29 [facility] [address] [facility] [id number] [address] [place] [address] Apr, Atherosclerosis of renal art taurus I70.1 ; Cardiomyopathy of undetermined type I42.9 and Ventricular tachycardia I47.2 [facility] [address] [facility] [id number] [address] [place] [address] 14 Apr, 2019 [facility] [address] [facility] [id number] [address] [place] [address] 11 Apr, 2019 Non-intractable vomiting wit h nausea, unspecified vomiting type R11.2 [facility] [address] [facility] [id number] [address] [place] [address] 03 Apr, 2019 Other chronic pain G89.29 [facility] [address] [facility] [id number] [address] [place] [address] Mar, Other chronic pain G89.29 [place] [address] [facility] [id number] [address] [place] [address] Feb, Renal insufficiency N28.9 [facility] [address] [id number] [address] [place] [address] Feb, [facility] [address] [facility] [id number] [address] [place] [address] Feb, Frequent headaches R51 and H ypertension I10 [facility] [address] [facility] [id number] [address] [place] [address] Feb, Other chronic pain G89.29 [facility] [address] [facility] [id number] [address] [place] [address] Jan, Encounter for Medicare annua l wellness [...] episode F32.1 and Encounter for immunization Z23 [facility] [address] [facility] [id number] [address] [place] [address] Jan, [facility] [address] [facility] [id number] [address] [place] [address] Jan, Other chronic pain G89.29 [facility] [address] [facility] [id number] [address] [place] [address] Dec, [facility] [address] [facility] [id number] [address] [place] [address] Dec, Hypokalemia E87.6 [place] [address] [facility] [id number] [address] [place] [address] 15 Dec, 2018 Nausea R11.0 [facility] [address] [facility] [id number] [address] [place] [address] 14 Dec, 2018 Other chronic pain G89.29 [facility] [address] [facility] [id number] [address] [place] [address] Dec, Systolic congestive heart fa ilure, unspecified HF chronicity I50.20 and Ventricular tachycardia I47.2 [facility] [address] [place] [id number] [address] [place] [address] Dec, [facility] [address] [place] [id number] [address] [place] [address] Nov, Other chronic pain G89.29 [place] [address] [place] [address] Nov, Nausea with vomiting, unspec ified R11.2 [place] [address] [place] [id number] [place] [address] Oct, [place] [address] [place] [id number] [place] [address] Oct, Other chronic pain G89.29 [place] [address] [address] Oct, [facility] [address] [address] Oct, Arterial insufficiency of lo wer extremity I73.9 and High risk medication use Z79.899 [facility] [address] [place] [id number] [address] [place] [address] Oct, Type 2 diabetes mellitus wit h foot ulcer E11.621 and Non-pressure chronic ulcer of other part of unspecified foot limited to breakdown of skin L97.501 [facility] [address] [place] [id number] [address] [place] [address] Oct, Gangrene I96 [facility] [address] [place] [id number] [place] [address] Sep, Other chronic pain G89.29 [facility] [address] [place] [id number] [place] [address] Sep, Status post CVA Z86.73 ; Uns teady gait R26.81 and Frequent falls R29.6 [place] [address] [facility] [id number] [address] [place] [address] Sep, Nausea with vomiting, unspec ified R11.2 [place] [address] [facility] [id number] [address] [place] [address] Sep, Other chronic pain G89.29 [place] [address] [facility] [id number] [address] [place] [address] Aug, [place] [address] [facility] [id number] [address] [place] [address] Aug, Other chronic pain G89.29 [place] [address] [facility] [id number] [address] [place] [address] July, 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 and Cerebrovascular accident (CVA) due to occlusion of other cerebral artery I63.59 [place] [address] [facility] [id number] [address] [place] [address] July, Renal insufficiency N28.9 [place] [address] [facility] [id number] [address] [place] [address] July, Cerebrovascular accident (CV A) due to occlusion of other cerebral artery I63.59 and Unexplained weight loss R63.4 [place] [address] [facility] [id number] [address] [place] [address] July, [place] [address] [facility] [id number] [address] [place] [address] July, [place] [address] [facility] [id number] [address] [place] [address] July, Unexplained weight loss R63. 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 4 [facility] [address] [facility] [id number] [address] [place] [address] May, Nausea with vomiting, unspec ified R11.2 [facility] [address] [facility] [id number] [address] [place] [address] May, Non-recurrent acute suppurat gulshan otitis media of right ear without spontaneous rupture of tympanic membrane H66.001 and Chronic anticoagulation Z79.01 [facility] [address] [facility] [id number] [address] [place] [address] May, Other chronic pain G89.29 [facility] [address] [facility] [id number] [address] [place] [address] Apr, Skin tear of right forearm w ithout complication, initial encounter S51.811A ; Skin tear of left forearm without complication, initial encounter S51.812A and Encounter for immunization Z23 [facility] [address] [facility] [id number] [address] [place] [address] Apr, [facility] [address] [facility] [id number] [address] [place] [address] Apr, Diarrhea, unspecified R19.7 ; Nausea with vomiting, unspecified R11.2 and 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 [facility] [address] [facility] [id number] [address] [place] [address] Apr, Other chronic pain G89.29 [facility] [address] [facility] [id number] [address] [place] [address] Mar, Other chronic pain G89.29 [facility] [address] [facility] [id number] [address] [place] [address] Mar, Other chronic pain G89.29 [facility] [address] [id number] [address] [place] [address] 08 Mar, 2018 [facility] [address] [id number] [address] [place] [address] Mar, Other organ or system involv ement in systemic lupus erythematosus M32.19 [facility] [address] [id number] [address] [place] [address] Mar, Non-recurrent acute suppurat gulshan otitis media of right ear without spontaneous rupture of tympanic membrane H66.001 and Chronic anticoagulation Z79.01 [facility] [address] [id number] [address] [place] [address] Feb, Sialoadenitis, unspecified K 11.20 [facility] [address] [id number] [address] [place] [address] Feb, Other chronic pain G89.29 [facility] [address] [id number] [address] [place] [address] Jan, 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 [facility] [address] [id number] [address] [place] [address] Jan, Other chronic pain G89.29 ; Lumbago with sciatica, right side M54.41 ; Other chronic pain G89.29 ; Tobacco abuse Z72.0 ; Tobacco abuse counseling Z71.6 ; Mixed hyperlipidemia E78.2 and senior living 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 Z79.01 [facility] [address] [id number] [address] [place] [address] Jan, [facility] [address] [id number] [address] [place] [address] Dec, [facility] [address] [id number] [address] [place] [phone] Dec, [facility] [address] [id number] [address] [place] [address] Dec, [facility] [address] [facility] [id number] [address] [place] [address] Dec, Mixed hyperlipidemia E78.2 ; Other chronic [...] in systemic lupus erythematosus M32.19 [facility] [employer] [address] [place] [id number] Dec, Right renal artery stenosis I70.1 ; Othe r organ or system involvement in systemic lupus erythematosus M32.19 ; Hepatitis C B19.20 ; Tobacco abuse Z72.0 and Weakness R53.1 [facility] [address] [place] [id number] Dec, [facility] [address] [facility] [id number] [address] [place] [address] Dec, [facility] [address] [facility] [id number] [address] [place] [address] Dec, Other organ or system involv ement in systemic lupus erythematosus M32.19 [facility] [employer] [address] [place] [id number] Dec, Right renal artery stenosis I70.1 ; Inju ry of right kidney, sequela S37.001S ; Tobacco abuse Z72.0 ; Systemic lupus erythematosus, unspecified SLE type, unspecified organ involvement status M32.9 ; Hepatitis C B19.20 and Candidiasis of female genitalia B37.3 [facility] [address] [facility] [id number] [address] [place] [address] 05 Dec, 2017 Other organ or system involv ement in systemic lupus erythematosus M32.19 [facility] [address] [facility] [id number] [address] [place] [address] Dec, Other organ or system involv ement in systemic lupus erythematosus M32.19 [facility] [address] [id number] [address] [place] [address] Dec, [facility] [address] [id number] [address] [place] [address] Nov, Other organ or system involv ement in systemic lupus erythematosus M32.19 [facility] [address] [id number] [address] [place] [address] Oct, Other organ or system involv ement in systemic lupus erythematosus M32.19 [facility] [address] [id number] [address] [place] [address] Sep, Other organ or system involv ement in systemic lupus erythematosus M32.19 [facility] [address] [id number] [address] [place] [address] Aug, Anxiety F41.9 [facility] [address] [id number] [address] [place] [address] Aug, Other organ or system involv ement in systemic lupus erythematosus M32.19 [facility] [address] [id number] [address] [place] [phone] July, Medicare annual wellness vis it, initial Z00.00 ; Anxiety F41.9 ; HILARIO (obstructive sleep apnea) G47.33 ; Hepatitis C B19.20 ; Other chronic pain G89.29 ; Asymptomatic menopausal state Z78.0 and Episode of recurrent major depressive disorder, unspecified depression episode severity F33.9 [facility] [address] [id number] [address] [place] [address] July, Anxiety F41.9 [facility] [address] [id number] [address] [place] [address] July, Other organ or system involv ement in systemic lupus erythematosus M32.19 [facility] [address] [id number] [address] [place] [address] July, [facility] [address] [id number] [address] [place] [address] Jun, Other organ or system involv ement in systemic lupus erythematosus M32.19 ; BMI 40.0-44.9, adult Z68.41 ; Other chronic pain G89.29 and Controlled substance agreement signed Z79.899 [facility] [address] [facility] [id number] [address] [place] [address] 08 May, 2017 Sciatica M54.30 [facility] [address] [id number] [address] [place] [address] Apr, Sciatica M54.30 [facility] [address] [facility] [id number] [address] [place] [address] Mar, Sciatica M54.30 [facility] [address] [facility] [id number] [address] [place] [address] Feb, Sciatica M54.30 [place] [address] [facility] [id number] [address] [place] [address] 15 Jan, 2017 Sciatica M54.30 [place] [address] [facility] [id number] [address] [place] [address] 14 Jan, 2017 Sciatica M54.30 [place] [address] [facility] [id number] [address] [place] [address] Dec, Sciatica M54.30 [place] [address] [facility] [id number] [address] [place] [address] 18 Dec, 2016 Sciatica M54.30 [facility] [address] [facility] [id number] [address] [place] [address] 29 Nov, 2016 Mixed hyperlipidemia E78.2 ; Chronic seasonal allergic rhinitis due to other allergen J30.2 and Family history of early CAD Z82.49 [facility] [address] [facility] [id number] [address] [place] [address] Nov, Sciatica M54.30 [facility] [address] [facility] [id number] [address] [place] [address] 18 Nov, 2016 Mixed hyperlipidemia E78.2 ; Chronic seasonal allergic rhinitis due to other allergen J30.2 ; Family history of early CAD Z82.49 ; Other chronic pain G89.29 and Pain in left shoulder M25.512 [facility] [address] [facility] [id number] [address] [place] [address] Nov, Acute pain of left shoulder M25.512 [facility] [address] [facility] [id number] [address] [place] [address] Oct, Sciatica M54.30 [place] [address] [facility] [id number] [address] [place] [address] Oct, [place] [address] [place] [id number] [place] [address] Sep, Sciatica M54.30 [place] [address] [place] [id number] [place] [address] Sep, Acute pain of left shoulder M25.512 [facility] [address] [place] [id number] [address] [place] [address] Sep, Acute pain of left shoulder M25.512 [place] [address] [address] Aug, Sciatica M54.30 [place] [address] [place] [id number] [place] [address] Aug, Sciatica M54.30 ; Tobacco ab use Z72.0 and Tobacco abuse counseling Z71.6 [facility] [address] [place] [id number] [address] [place] [address] Aug, Acute pain of left shoulder M25.512 [facility] [address] [place] [id number] [place] [address] Aug, Contusion of right shoulder, initial encounter S40.011A ; Acute pain of left shoulder M25.512 and Shortness of breath R06.02 [place] [address] [place] [id number] [address] [place] [address] Aug, Lumbago with sciatica, right side M54.41 [facility] [address] [facility] [id number] [address] [place] [address] July, [facility] [address] [facility] [id number] [address] [place] [address] July, Lumbago with sciatica, right side M54.41 [facility] [address] [facility] [id number] [address] [place] [address] Jun, Lumbago with sciatica, right side M54.41 [facility] [address] [facility] [id number] [address] [place] [address] May, Lumbago with sciatica, right side M54.41 [facility] [address] [facility] [id number] [address] [place] [address] May, Herpes zoster without compli cation B02.9 [facility] [address] [facility] [id number] [address] [place] [address] May, Back pain M54.9 and Acute ri ght-sided low back pain with right-sided sciatica M54.41 [facility] [address] [facility] [id number] [address] [place] [address] Apr, [facility] [address] [place] [id number] [address] [place] [address] Apr, Lumbago with sciatica, right side M54.41 and Other chronic pain G89.29 [facility] [address] [facility] [id number] [address] [place] [id number] Apr, [facility] [address] [place] [id number] [address] [place] [id number] Mar, [facility] [address] [facility] [id number] [address] [place] [id number] Mar, [facility] [address] [place] [id number] [address] [place] [id number] Feb, [facility] [address] [facility] [id number] [address] [place] [id number] Jan, Urinary frequency R35.0 [facility] [address] [facility] [id number] [address] [place] [id number] Jan, [facility] [address] [facility] [id number] [address] [place] [id number] Dec, [facility] [address] [facility] [id number] [address] [place] [phone] Oct, [facility] [address] [facility] [id number] [address] [place] [id number] Sep, [facility] [address] [facility] [id number] [address] [place] [id number] Sep, Foreign body in left foot, i nitial encounter S90.852A [facility] [address] [id number] [address] [place] [address] Aug, [facility] [address] [id number] [address] [place] [address] July, Sciatica M54.30 [facility] [address] [id number] [address] [place] [address] Jun, [facility] [address] [id number] [address] [place] [address] May, Osteoarthritis M19.90 [facility] [address] [facility] [id number] [address] [place] [address] May, [facility] [address] [facility] [id number] [address] [place] [address] May, Pain in right hip M25.551 [facility] [address] [facility] [id number] [address] [place] [address] May, Tinea corporis B35.4 [facility] [address] [facility] [id number] [address] [place] [address] Apr, Pain in right hip M25.551 [facility] [address] [id number] [address] [place] [address] Mar, Pain in right hip M25.551 [facility] [address] [id number] [address] [place] [address] Mar, [facility] [address] [id number] [address] [place] [address] Feb, Pain in right hip M25.551 [facility] [address] [id number] [address] [place] [address] Jan, Acute bronchitis, unspecifie d organism J20.9 and Cough R05 [facility] [address] [id number] [address] [place] [address] Jan, Pain in right hip M25.551 [facility] [address] [id number] [address] [place] [address] Dec, Pain in right hip M25.551 [facility] [address] [id number] [address] [place] [address] Nov, Acute bronchitis 466.0 [facility] [address] [id number] [address] [place] [address] Nov, [facility] [address] [id number] [address] [place] [address] Oct, [facility] [address] [id number] [address] [place] [address] Sep, [facility] [address] [id number] [address] [place] [address] Aug, [facility] [address] [id number] [address] [place] [address] July, [facility] [address] [id number] [address] [place] [address] Jun, [facility] [address] [id number] [address] [place] [address], [place] [address] 13 Jun, 2014 [facility] [address] [id number] [address] [place] [address], [place] [address] 18 May, 2014 [facility] [address] [id number] [address] [place] [address], [place] [address] 18 May, 2014 [facility] [address] [id number] [address] [place] [address], [place] [address] 17 Apr, 2014 [facility] [address] [id number] [address] [place] [address], [place] [address] Apr, 2014 [facility] [address] [id number] [address] [place] [address], [place] [address] Apr, 2014 [facility] [address] [id number] [address] [place] [address], [place] [address] Apr, 2014 [facility] [address] [id number] [address] [place] [address], [place] [address] Apr, 2014 [facility] [address] [id number] [address] [place] [address], [place] [address] 06 Apr, 2014 [facility] [address] [id number] [address] [place] [address], [place] [address] Mar, [facility] [address] [id number] [address] [place] [address], [place] [address] 16 Mar, 2014 [facility] [address] [id number] [address] [place] [address], [place] [address] Feb, [facility] [address] [id number] [address] [place] [address] Feb, [facility] [address] [id number] [address] [place] [address], [place] [address] Feb, [facility] [address] [id number] [address] [place] [address], [place] [address] Dec, [facility] [address] [id number] [address] [place] [address], [place] [address] Dec, [facility] [address] [id number] [address] [place] [address], [place] [address] Nov, [facility] [address] [id number] [address] [place] [address], [place] [address] Nov, [facility] [address] [id number] [address] [place] [address], [place] [address] Nov, [facility] [address] [id number] [address] [place] [address], [place] [address] Nov, [facility] [address] [id number] [address] [place] [address], [place] [address] Sep, [facility] [address] [id number] [address] [place] [address], [place] [address] Sep, [facility] [address] [id number] [address] [place] [address], [place] [address] Sep, [facility] [address] [id number] [address] [place] [address], [place] [address] Sep, [facility] [address] [id number] [address] [place] [address], [place] [address] Aug, [facility] [address] [id number] [address] [place] [address], [place] [address] Aug, [facility] [address] [id number] [address] [place] [address], [place] [address] Aug, [facility] [address] [id number] [address] [place] [address], [place] [address] Aug, [facility] [address] [id number] [address] [place] [address], [place] [address] July, [facility] [address] [id number] [address] [place] [address], [place] [address] July, [facility] [address] [id number] [address] [place] [address], [place] [address] Jun, [facility] [address] [id number] [address] [place] [address], [place] [address] Jun, [facility] [address] [id number] [facility] [place] [address] Jun, [facility] [address] [id number] [address] [place] [address], [place] [address] Jun, [facility] [address] [id number] [address] [place] [address], [place] [address] Jun, [facility] [address] [id number] [address] [place] [address], [place] [address] Jun, [facility] [address] [id number] [address] [place] [address], [place] [address] Jun, [facility] [address] [id number] [address] [place] [address], [place] [address] Jun, [facility] [address] [id number] [address] [place] [address], [place] [address] May, [facility] [address] [id number] [address] [place] [address], [place] [address] May, [facility] [address] [id number] [address] [place] [address], [place] [address] May, [facility] [address] [id number] [address] [place] [address], [place] [address] May, [facility] [address] [id number] [address] [place] [address], [place] [address] May, [facility] [address] [id number] [address] [place] [address], [place] [address] May, [facility] [address] [id number] [address] [place] [address], [place] [address] Apr, [facility] [address] [id number] [address] [place] [address], [place] [address] Apr, [facility] [address] [id number] [address] [place] [address], [place] [address] Apr, [facility] [address] [id number] [address] [place] [address], [place] [address] Apr, [facility] [address] [id number] [address] [place] [address], [place] [address] Mar, [facility] [address] [id number] [address] [place] [address], [place] [address] Mar, [facility] [address] [id number] [address] [place] [address], [place] [address] Mar, [facility] [address] [id number] [address] [place] [address], [place] [address] Mar, [facility] [address] [id number] [address] [place] [address], [place] [address] Mar, [facility] [address] [id number] [address] [place] [address], [place] [address] Mar, [facility] [address] [id number] [address] [place] [address], [place] [address] Feb, [facility] [address] [id number] [address] [place] [address], [place] [address] Feb, [facility] [address] [id number] [address] [place] [address], [place] [address] Feb, [facility] [address] [id number] [address] [place] [address], [place] [address] Feb, [facility] [address] [id number] [address] [place] [address], [place] [address] Feb, [facility] [address] [id number] [address] [place] [address], [place] [address] Feb, [facility] [address] [id number] [address] [place] [address], [place] [address] Feb, [facility] [address] [id number] [address] [place] [address], [place] [address] Feb, [facility] [address] [id number] [address] [place] [address] Feb, [facility] [address] [id number] [address] [place] [address], [place] [address] Feb, [facility] [address] [id number] [address] [place] [address] Feb, [facility] [address] [id number] [address] [place] [address], [place] [address] Feb, [facility] [address] [id number] [address] [place] [address] Jan, [facility] [address] [id number] [address] [place] [address], [place] [address] Jan, [facility] [address] [id number] [address] [place] [address] Jan, [facility] [address] [id number] [address] [place] [address] Jan, [facility] [address] [id number] [address] [place] [address] Jan, [facility] [address] [id number] [address] [place] [address] Jan, [facility] [address] [id number] [address] [place] [address] Jan, [facility] [address] [id number] [address] [place] [address] Jan, [facility] [address] [id number] [address] [place] [address] Jan, [facility] [address] [id number] [address] [place] [address] Jan, [facility] [address] [id number] [address] [place] [address] Dec, [facility] [address] [id number] [address] [place] [address] Dec, [facility] [address] [id number] [address] [place] [address], [place] [address] Nov, 2012 [facility] [address] [id number] [address] [place] [address], [place] [address] Nov, 2012 [facility] [address] [id number] [address] [place] [address], [place] [address] Nov, 2012 [facility] [address] [id number] [address] [place] [address], [place] [address] 05 Nov, 2012 [facility] [address] [id number] [address] [place] [address], [place] [address] Nov, 2012 [facility] [address] [id number] [address] [place] [address], [place] [address] Oct, [facility] [place] [address] [id number] [address] [place] [address], [place] [address] Oct, [facility] [place] [address] [id number] [address] [place] [address], [place] [address] Oct, [facility] [address] [id number] [address] [place] [address], [place] [address] Oct, [facility] [place] [address] [id number] [address] [place] [address], [place] [address] Oct, [facility] [address] [id number] [address] [place] [address], [place] [address] Sep, [facility] [place] [address] [id number] [address] [place] [address], [place] [address] Sep, [facility] [place] [address] [id number] [address] [place] [address], [place] [address] Sep, [facility] [address] [id number] [address] [place] [address], [place] [address] Sep, [facility] [address] [id number] [address] [place] [address], [place] [address] Sep, [facility] [address] [id number] [address] [place] [address], [place] [address] Sep, [facility] [place] [address] [id number] [address] [place] [address], [place] [address] Aug, [facility] [address] [id number] [address] [place] [address], [place] [address] Aug, [facility] [address] [id number] [address] [place] [address], [place] [address] July, [facility] [address] [id number] [address] [place] [address], [place] [address] July, [facility] [address] [id number] [address] [place] [address], [place] [address] July, [facility] [address] [id number] [address] [place] [address], [place] [address] Jun, [facility] [address] [id number] [address] [place] [address], [place] [address] Jun, [facility] [address] [id number] [address] [place] [address], [place] [address] Jun, [facility] [place] [address] [id number] [address] [place] [address], [place] [address] Jun, [facility] [address] [id number] [address] [place] [address], [place] [address] May, [facility] [address] [id number] [address] [place] [address], [place] [address] May, [facility] [address] [id number] [address] [place] [address], [place] [address] Apr, [facility] [address] [id number] [address] [place] [address], [place] [address] Apr, [facility] [address] [id number] [address] [place] [address], [place] [address] Apr, [facility] [address] [id number] [address] [place] [address], [place] [address] Apr, [facility] [address] [id number] [address] [place] [address], [place] [address] Apr, [facility] [address] [id number] [address] [place] [address], [place] [address] Apr, [facility] [address] [id number] [address] [place] [address], [place] [id number] Apr, [facility] [address] [id number] [address] [place] [address], [place] [address] Apr, [facility] [address] [id number] [address] [place] [address], [place] [address] Mar, [facility] [address] [id number] [address] [place] [address], [place] [address] Mar, [facility] [address] [id number] [address] [place] [address], [place] [address] Mar, [facility] [address] [id number] [address] [place] [address], [place] [address] Mar, [facility] [address] [id number] [address] [place] [address], [place] [address] Jan, [facility] [address] [id number] [address] [place] [address], [place] [address] Jan, [facility] [place] [address] [id number] [address] [place] [address], [place] [address] Jan, [facility] [address] [id number] [address] [place] [address], [place] [address] Jan, [facility] [address] [id number] [address] [place] [address], [place] [address] Jan, [facility] [address] [id number] [address] [place] [address], [place] [address] Dec, [facility] [address] [id number] [address] [place] [address], [place] [address] Dec, [facility] [address] [id number] [address] [place] [address], [place] [address] Dec, [facility] [address] [id number] [address] [place] [address], [place] [address] Dec, [facility] [address] [id number] [address] [place] [address], [place] [address] Nov, [facility] [address] [id number] [address] [place] [address], [place] [address] Oct, [facility] [address] [id number] [address] [place] [address], [place] [address] Oct, [facility] [address] [id number] [address] [place] [address], [place] [address] Oct, [facility] [address] [id number] [address] [place] [address], [place] [address] Oct, [facility] [address] [id number] [address] [place] [address], [place] [address] Oct, [facility] [address] [id number] [address] [place] [address], [place] [address] Sep, [facility] [address] [id number] [address] [place] [address], [place] [address] Sep, [facility] [address] [id number] [address] [place] [address], [place] [address] Aug, [facility] [address] [id number] [address] [place] [address], [place] [address] Aug, [facility] [address] [id number] [address] [place] [address], [place] [address] Aug, [facility] [address] [id number] [address] [place] [address], [place] [address] Aug, [facility] [address] [id number] [address] [place] [address], [place] [address] July, [facility] [address] [id number] [address] [place] [address], [place] [address] Jun, [facility] [address] [id number] [address] [place] [id number] 28 May, 2011 [facility] [address] [id number] [address] [place] [address], [place] [address] 27 May, 2011 [facility] [address] [id number] [address] [place] [address], [place] [address] 12 May, 2011 [facility] [address] [id number] [address] [place] [address], [place] [address] 30 Mar, 2011 [facility] [address] [id number] [address] [place] [address], [place] [address] Feb, [facility] [address] [id number] [address] [place] [address], [place] [address] Feb, [facility] [address] [id number] [address] [place] [address], [place] [address] Jan, [facility] [address] [id number] [address] [place] [address], [place] [address] Jan, [facility] [address] [id number] [address] [place] [address], [place] [address] Jan, [facility] [address] [id number] [address] [place] [address], [place] [address] Jan, [facility] [address] [id number] [address] [place] [address], [place] [address] 30 Jan, 2010 [facility] [address] [id number] [address] [place] [address], [place] [address] 20 Dec, 2009 [facility] [address] [id number] [address] [place] [address], [place] [address] Dec, [facility] [address] [id number] [address] [place] [address], [place] [address] Dec, [facility] [address] [id number] [address] [place] [address], [place] [address] 18 May, 2009 [facility] [address] [id number] [address] [place] [address], [place] [address] 15 May, 2009 [facility] [address] [facility] [id number] [address] [place] [id number] 17 Apr, 2009 [facility] [address] [facility] [id number] [address] [place] [id number] Jan, [facility] [address] [facility] [id number] [address] [place] [id number] Apr, IMMUNIZATIONS No Known Immunizations SOCIAL HISTORY [...] for cancer Hospitalization History surgeries Hospitalization History [facility] ER, heart- kidney- Stayed a [facility] ICU 12/2017 Hospitalization History [facility] ER 03/2018 Hospitalization History [facility]- Stroke 2 weeks 06/2018 Hospitalization History ER 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
--- OUTSIDE RECORDS SUMMARY | 2019-10-19 08:22 | XMS REPORT ---
Author Author Eugenoi LINDA [facility] Address [address] [place] [address] Care Team Providers Care State Auditor Name Role Phone EUGENIO LINDA Unavailable PROBLEMS Type Condition ICD9-CM Code [id number] Code Onset Dates Condition S tatus SNOMED Code Problem Mixed hyperlipidemia E78.2 Active 778507269 Problem Anxiety F41.9 Active 69777625 Problem Other organ or system involvement in systemic julito pus erythematosus M32.19 Active 19263642 Problem Episode of recurrent major d epressive disorder, unspecified depression episode severity F33.9 Active 440283483 Problem Asymptomatic menopausal state Z78.0 Active 65825467 Problem Systemic lupus erythematosus , unspecified SLE type, unspecified organ involvement status M32.9 Active 47269856 Problem Right renal artery stenosis I70.1 Ac tive 10501123948789824 Problem Type 2 diabetes mellitus with foot ulcer E11.621 Active 278453165482010 Problem Lumbago with sciatica, right side M54.41 Active 977783138 Problem Non-pressure chronic ulcer o f other part of unspecified foot limited to breakdown of skin L97.501 Active 337343587 Problem Other chronic pain G89.29 Active 8 9865223 Problem Other chronic pain G89.29 Active 8 1102035 Problem Acute right-sided low back pain with right-sided sciatica M54.41 Active 728530286 Problem FPC current use of anticoagulant Z79.01 Active 801774477 Problem 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 82150911 Problem Frequent falls R29.6 Active 92215 2001 Problem HILARIO (obstructive sleep apnea) G47.33 Active 12767352 Problem Cerebrovascular accident (CV A) due to occlusion of other cerebral artery I63.59 Active 295090403 Problem Sciatica M54.30 Active 24127425 Problem Gangrene I96 Active 428027066 Problem Hepatitis C B19.20 Active 21445249 Problem Unsteady gait R26.81 Active 132232 008 Problem Seborrheic keratoses L82.1 Active 420935199 Problem Non-pressure chronic ulcer o f other part of unspecified foot limited to breakdown of skin L97.501 Active 115320848 Problem Urinary frequency R35.0 Active 16 5822466 Problem Necrosis I96 Active 854962210 Problem 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 Active 897124778 Problem Type 2 diabetes mellitus with foot ulcer E11.621 Active 860153879891525 Problem Arterial insufficiency of lower extremity I73.9 Active 496596833421023 Problem Ventricular tachycardia I47.2 Active 71484384 Problem Atherosclerosis of renal artery I70.1 Active 005040027668458 Problem 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 Active 290392681 Problem 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 Active 309392405 Problem Chronic anticoagulation Z79.01 Active 993819364 Problem Sialoadenitis, unspecified K11.20 Act gulshan 18783483 Problem Current moderate episode of major depressive disorder without prior episode F32.1 Active 71394873 Problem Body mass index (BMI) 29.0-29.9, adult Z68.29 Active 684245011 Problem Systolic congestive heart failure, unspecified HF chronici ty I50.20 Active 69095063 Problem Hypertension I10 Active 1577126 3 Problem Cardiomyopathy of undetermined type I42.9 Active 01245753 ALLERGIES No Information ENCOUNTERS Encounter Location Date Diagnosis [place] [address] [facility] [id number] [address] [place] [address] 29 Aug, 2019 Other chronic pain G89.29 [facility] [address] [facility] [id number] [address] [place] [address] Aug, [facility] [address] [facility] [id number] [address] [place] [address] July, Other chronic pain G89.29 [facility] [address] [facility] [id number] [address] [place] [address] Jun, Other chronic pain G89.29 [place] [address] [facility] [id number] [address] [place] [address] 14 Jun, 2019 Frequent headaches R51 [facility] [address] [place] [id number] [place] [address] Jun, Systolic congestive heart fa ilure, unspecified HF chronicity I50.20 ; Type 2 diabetes mellitus with foot ulcer E11.621 and Coronary artery disease of [place] artery of [place] heart with stable angina pectoris I25.118 [facility] [address] [address] Jun, Other chronic pain G89.29 [place] [address] [address] May, [place] [address] [address] May, Other chronic pain G89.29 [place] [address] [address] Apr, Atherosclerosis of renal art taurus I70.1 ; Cardiomyopathy of undetermined type I42.9 and Ventricular tachycardia I47.2 [place] [address] [address] 14 Apr, 2019 [facility] [address] [place] [id number] [address] [place] [address] Apr, Non-intractable vomiting wit h nausea, unspecified vomiting type R11.2 [place] [address] [place] [id number] [address] [place] [address] Apr, Other chronic pain G89.29 [facility] [address] [place] [id number] [place] [address] Mar, Other chronic pain G89.29 [place] [address] [place] [id number] [place] [address] Feb, Renal insufficiency N28.9 [facility] [address] [place] [id number] [place] [address] Feb, [facility] [address] [id number] [address] [place] [address] Feb, Frequent headaches R51 and H ypertension I10 [place] [address] [facility] [id number] [address] [place] [address] Feb, Other chronic pain G89.29 [place] [address] [facility] [id number] [address] [place] [address] Jan, Encounter for Medicare ann l wellness exam Z00.00 ; Arterial insufficiency [...] episode F32.1 and Encounter for immunization Z23 [place] [address] [facility] [id number] [address] [place] [address] 22 Jan, 2019 [place] [address] [facility] [id number] [address] [place] [address] Jan, Other chronic pain G89.29 [place] [address] [facility] [id number] [address] [place] [address] 28 Dec, 2018 [place] [address] [facility] [id number] [address] [place] [address] Dec, Hypokalemia E87.6 [place] [address] [facility] [id number] [address] [place] [address] 15 Dec, 2018 Nausea R11.0 [place] [address] [facility] [id number] [address] [place] [address] 14 Dec, 2018 Other chronic pain G89.29 [place] [address] [facility] [id number] [address] [place] [address] 10 Dec, 2018 Systolic congestive heart fa ilure, unspecified HF chronicity I50.20 and Ventricular tachycardia I47.2 [place] [address] [place] [id number] [address] [place] [address] 08 Dec, 2018 [place] [address] [address] Nov, Other chronic pain G89.29 [place] [address] [place] [id number] [place] [address] Nov, Nausea with vomiting, unspec ified R11.2 [place] [address] [place] [id number] [place] [address] Oct, [place] [address] [address] Oct, Other chronic pain G89.29 [place] [address] [address] Oct, [place] [address] [address] Oct, Arterial insufficiency of lo wer extremity I73.9 and High risk medication use Z79.899 [facility] [address] [address] Oct, Type 2 diabetes mellitus wit h foot ulcer E11.621 and Non-pressure chronic ulcer of other part of unspecified foot limited to breakdown of skin L97.501 [facility] [address] [place] [id number] [address] [place] [address] Oct, Gangrene I96 [place] [address] [place] [id number] [place] [address] Sep, Other chronic pain G89.29 [place] [address] [address] Sep, Status post CVA Z86.73 ; Uns teady gait R26.81 and Frequent falls R29.6 [place] [address] [address] Sep, Nausea with vomiting, unspec ified R11.2 [facility] [address] [id number] [address] [place] [address] Sep, Other chronic pain G89.29 [facility] [address] [id number] [address] [place] [address] Aug, [facility] [address] [id number] [address] [place] [address] Aug, Other chronic pain G89.29 [facility] [address] [id number] [address] [place] [address] July, 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 Z79.01 and Cerebrovascular accident (CVA) due to occlusion of other cerebral artery I63.59 [place] [address] [id number] [address] [place] [address] July, Renal insufficiency N28.9 [facility] [address] [id number] [address] [place] [address] July, Cerebrovascular accident (CV A) due to occlusion of other cerebral artery I63.59 and Unexplained weight loss R63.4 [place] [address] [id number] [address] [place] [address] July, [facility] [address] [id number] [address] [place] [address] July, [facility] [address] [id number] [address] [place] [address] July, Unexplained weight loss R63. 4 and FPC current use of anticoagulant Z79.01 [facility] [address] [id number] [address] [place] [address] July, Other chronic pain G89.29 [facility] [address] [id number] [address] [place] [address] Jun, Other chronic pain G89.29 [facility] [address] [id number] [address] [place] [address] May, Unexplained weight loss R63. 4 [facility] [address] [facility] [id number] [address] [place] [address] May, Nausea with vomiting, unspec ified R11.2 [facility] [address] [facility] [id number] [address] [place] [address] May, Non-recurrent acute suppurat gulshan otitis media of right ear without spontaneous rupture of tympanic membrane H66.001 and Chronic anticoagulation Z79.01 [facility] [address] [facility] [id number] [address] [place] [address] May, Other chronic pain G89.29 [facility] [address] [facility] [id number] [address] [place] [address] Apr, Skin tear of right forearm w ithout complication, initial encounter S51.811A ; Skin tear of left forearm without complication, initial encounter S51.812A and Encounter for immunization Z23 [facility] [address] [facility] [id number] [address] [place] [address] Apr, [facility] [address] 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 [id number] [address] [place] [address] Apr, Other chronic pain G89.29 [facility] [address] [facility] [id number] [address] [place] [address] Mar, Other chronic pain G89.29 [facility] [address] [facility] [id number] [address] [place] [address] Mar, Other chronic pain G89.29 [facility] [address] [place] [id number] [address] [place] [address] Mar, [facility] [address] [place] [id number] [address] [place] [address] Mar, Other organ or system involv ement in systemic lupus erythematosus M32.19 [facility] [address] [facility] [id number] [address] [place] [address] Mar, Non-recurrent acute suppurat gulshan otitis media of right ear without spontaneous rupture of tympanic membrane H66.001 and Chronic anticoagulation Z79.01 [facility] [address] [id number] [address] [place] [address] Feb, Sialoadenitis, unspecified K 11.20 [facility] [address] [facility] [id number] [address] [place] [address] Feb, Other chronic pain G89.29 [facility] [address] [facility] [id number] [address] [place] [address] Jan, FPC current use of ant icoagulant therapy Z79.01 [place] [address] [facility] [id number] [address] [place] [address] Jan, Other chronic pain G89.29 ; Lumbago with sciatica, right side M54.41 ; Other chronic pain G89.29 ; Tobacco abuse Z72.0 ; Tobacco abuse counseling Z71.6 ; Mixed hyperlipidemia E78.2 and FPC 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 Z79.01 [facility] [address] [facility] [id number] [address] [place] [address] Jan, [place] [address] [facility] [id number] [address] [place] [address] Dec, [facility] [address] [facility] [id number] [address] [place] [address] Dec, [place] [address] [facility] [id number] [address] [place] [address] Dec, [place] [address] [facility] [id number] [address] [place] [address] Dec, Mixed hyperlipidemia E78.2 ; Other chronic [...] lupus erythematosus M32.19 [facility] [address] [place] [id number] Dec, Right renal artery stenosis I70.1 ; Othe r organ or system involvement in systemic lupus erythematosus M32.19 ; Hepatitis C B19.20 ; Tobacco abuse Z72.0 and Weakness R53.1 [facility] [address] [place] [id number] Dec, [place] [address] [facility] [id number] [address] [place] [address] Dec, [place] [address] [facility] [id number] [address] [place] [address] Dec, Other organ or system involv ement in systemic lupus erythematosus M32.19 [facility] [address] [place] [id number] Dec, Right renal artery stenosis I70.1 ; Inju ry of right kidney, sequela S37.001S ; Tobacco abuse Z72.0 ; Systemic lupus erythematosus, unspecified SLE type, unspecified organ involvement status M32.9 ; Hepatitis C B19.20 and Candidiasis of female genitalia B37.3 [place] [address] [id number] [address] [place] [address] Dec, Other organ or system involv ement in systemic lupus erythematosus M32.19 [place] [address] [id number] [address] [place] [address] Dec, Other organ or system involv ement in systemic lupus erythematosus M32.19 [place] [address] [facility] [id number] [address] [place] [address] Dec, [facility] [address] [id number] [address] [place] [address] Nov, Other organ or system involv ement in systemic lupus erythematosus M32.19 [facility] [address] [id number] [address] [place] [address] Oct, Other organ or system involv ement in systemic lupus erythematosus M32.19 [facility] [address] [id number] [address] [place] [address] Sep, Other organ or system involv ement in systemic lupus erythematosus M32.19 [facility] [address] [id number] [address] [place] [address] Aug, Anxiety F41.9 [facility] [address] [id number] [address] [place] [address] Aug, Other organ or system involv ement in systemic lupus erythematosus M32.19 [facility] [address] [facility] [id number] [address] [place] [address] July, Medicare annual wellness vis it, initial Z00.00 ; Anxiety F41.9 ; HILARIO (obstructive sleep apnea) G47.33 ; Hepatitis C B19.20 ; Other chronic pain G89.29 ; Asymptomatic menopausal state Z78.0 and Episode of recurrent major depressive disorder, unspecified depression episode severity F33.9 [facility] [address] [facility] [id number] [address] [place] [address] July, Anxiety F41.9 [facility] [address] [id number] [address] [place] [address] July, Other organ or system involv ement in systemic lupus erythematosus M32.19 [facility] [address] [id number] [address] [place] [address] July, [facility] [address] [facility] [id number] [address] [place] [address] Jun, Other organ or system involv ement in systemic lupus erythematosus M32.19 ; BMI 40.0-44.9, adult Z68.41 ; Other chronic pain G89.29 and Controlled substance agreement signed Z79.899 [facility] [address] [facility] [id number] [address] [place], [place] [id number] May, Sciatica M54.30 [facility] [address] [facility] [id number] [address] [place] [address] Apr, Sciatica M54.30 [facility] [address] [facility] [id number] [address] [place] [address] Mar, Sciatica M54.30 [place] [address] [id number] [address] [place] [address] Feb, Sciatica M54.30 [place] [address] [facility] [id number] [address] [place] [address] Jan, Sciatica M54.30 [place] [address] [facility] [id number] [address] [place] [address] 14 Jan, 2017 Sciatica M54.30 [place] [address] [facility] [id number] [address] [place] [address] Dec, Sciatica M54.30 [place] [address] [facility] [id number] [address] [place] [address] 18 Dec, 2016 Sciatica M54.30 [place] [address] [place] [id number] [address] [place] [address] 29 Nov, 2016 Mixed hyperlipidemia E78.2 ; Chronic seasonal allergic rhinitis due to other allergen J30.2 and Family history of early CAD Z82.49 [place] [address] [facility] [id number] [address] [place] [address] Nov, Sciatica M54.30 [facility] [address] [facility] [id number] [address] [place] [address] 18 Nov, 2016 Mixed hyperlipidemia E78.2 ; Chronic seasonal allergic rhinitis due to other allergen J30.2 ; Family history of early CAD Z82.49 ; Other chronic pain G89.29 and Pain in left shoulder M25.512 [facility] [address] [id number] [address] [place] [address] Nov, Acute pain of left shoulder M25.512 [facility] [address] [id number] [address] [place] [address] Oct, Sciatica M54.30 [facility] [address] [id number] [address] [place] [address] Oct, [facility] [address] [id number] [address] [place] [address] Sep, Sciatica M54.30 [place] [address] [facility] [id number] [address] [place] [address] Sep, Acute pain of left shoulder M25.512 [facility] [address] [facility] [id number] [address] [place] [address] Sep, Acute pain of left shoulder M25.512 [facility] [address] [facility] [id number] [address] [place] [address] Aug, Sciatica M54.30 [place] [address] [facility] [id number] [address] [place] [address] Aug, Sciatica M54.30 ; Tobacco ab use Z72.0 and Tobacco abuse counseling Z71.6 [facility] [address] [facility] [id number] [address] [place] [address] Aug, Acute pain of left shoulder M25.512 [facility] [address] [facility] [id number] [address] [place] [address] Aug, Contusion of right shoulder, initial encounter S40.011A ; Acute pain of left shoulder M25.512 and Shortness of breath R06.02 [facility] [address] [facility] [id number] [address] [place] [address] Aug, Lumbago with sciatica, right side M54.41 [facility] [address] [id number] [address] [place] [address] July, [facility] [address] [facility] [id number] [address] [place] [address] July, Lumbago with sciatica, right side M54.41 [facility] [address] [facility] [id number] [address] [place] [address] Jun, Lumbago with sciatica, right side M54.41 [facility] [address] [facility] [id number] [address] [place] [address] May, Lumbago with sciatica, right side M54.41 [facility] [address] [facility] [id number] [address] [place] [address] May, Herpes zoster without compli cation B02.9 [facility] [address] [facility] [id number] [address] [place] [address] May, Back pain M54.9 and Acute ri ght-sided low back pain with right-sided sciatica M54.41 [facility] [address] [facility] [id number] [address] [place] [address] Apr, [facility] [address] [facility] [id number] [address] [place] [address] Apr, Lumbago with sciatica, right side M54.41 and Other chronic pain G89.29 [facility] [address] [facility] [id number] [address] [place] [id number] Apr, [facility] [address] [facility] [id number] [address] [place] [phone] Mar, [facility] [address] [facility] [id number] [address] [place] [phone] Mar, [facility] [address] [facility] [id number] [address] [place] [id number] Feb, [facility] [address] [facility] [id number] [address] [place] [id number] Jan, Urinary frequency R35.0 [facility] [address] [id number] [address] [place] [id number] Jan, [facility] [address] [id number] [address] [place] [id number] Dec, [facility] [address] [facility] [id number] [address] [place] [id number] Oct, [facility] [address] [id number] [address] [place] [id number] Sep, [facility] [address] [id number] [address] [place] [id number] Sep, Foreign body in left foot, i nitial encounter S90.852A [facility] [address] [facility] [id number] [address] [place] [id number] Aug, [facility] [address] [facility] [id number] [address] [place] [id number] July, Sciatica M54.30 [facility] [address] [id number] [address] [place] [id number] Jun, [facility] [address] [facility] [facility] [id number] [address] [place] [address] May, Osteoarthritis M19.90 [facility] [address] [facility] [id number] [address] [place] [address] May, [facility] [address] [facility] [id number] [address] [place] [address] May, Pain in right hip M25.551 [facility] [address] [facility] [id number] [address] [place] [address] May, Tinea corporis B35.4 [facility] [address] [facility] [id number] [address] [place] [id number] 10 Apr, 2015 Pain in right hip M25.551 [facility] [address] [facility] [id number] [address] [place] [address] Mar, Pain in right hip M25.551 [facility] [address] [id number] [address] [place] [address] Mar, [facility] [address] [id number] [address] [place] [address] Feb, Pain in right hip M25.551 [facility] [address] [id number] [address] [place] [id number] Jan, Acute bronchitis, unspecifie d organism J20.9 and Cough R05 [facility] [address] [id number] [address] [place] [address] Jan, Pain in right hip M25.551 [facility] [address] [id number] [address] [place] [address] Dec, Pain in right hip M25.551 [facility] [address] [id number] [address] [place] [address] Nov, Acute bronchitis 466.0 [facility] [address] [id number] [address] [place] [address] Nov, [facility] [address] [id number] [address] [place] [address] Oct, [facility] [address] [id number] [address] [place] [address] Sep, [facility] [address] [id number] [address] [place] [address] Aug, [facility] [address] [id number] [address] [place] [address] July, [facility] [address] [id number] [address] [place] [address] 14 Jun, 2014 [facility] [address] [id number] [address] [place] [address] Jun, [facility] [address] [id number] [address] [place] [address], [place] [address] 18 May, 2014 [facility] [address] [id number] [address] [place] [address], [place] [address] 18 May, 2014 [facility] [address] [id number] [address] [place] [address], [place] [address] 17 Apr, 2014 [facility] [address] [id number] [address] [place] [address], [place] [address] Apr, 2014 [facility] [address] [id number] [address] [place] [address], [place] [address] Apr, 2014 [facility] [address] [id number] [address] [place] [address], [place] [address] Apr, 2014 [facility] [address] [id number] [address] [place] [address], [place] [address] 06 Apr, 2014 [facility] [address] [id number] [address] [place] [address], [place] [address] Apr, 2014 [facility] [address] [id number] [address] [place] [address], [place] [address] Mar, [facility] [address] [id number] [address] [place] [address], [place] [address] Mar, [facility] [address] [id number] [address] [place] [address], [place] [address] 15 Feb, 2014 [facility] [address] [id number] [address] [place] [address], [place] [address] Feb, [facility] [address] [id number] [address] [place] [address], [place] [address] Feb, [facility] [address] [id number] [address] [place] [address], [place] [address] Dec, [facility] [address] [id number] [address] [place] [address], [place] [address] Dec, [facility] [address] [id number] [address] [place] [address], [place] [address] Nov, [facility] [address] [id number] [facility] [address] 17 Nov, 2013 [facility] [address] [id number] [address] [place] [address], [place] [address] Nov, [facility] [address] [id number] [address] [place] [address], [place] [address] Nov, [facility] [address] [id number] [address] [place] [address], [place] [address] Sep, [facility] [address] [id number] [address] [place] [address], [place] [address] Sep, [facility] [address] [id number] [address] [place] [address], [place] [address] Sep, [facility] [address] [id number] [address] [place] [address], [place] [address] Sep, [facility] [address] [id number] [address] [place] [address], [place] [address] Aug, [facility] [address] [id number] [address] [place] [address], [place] [address] Aug, [facility] [address] [id number] [address] [place] [address], [place] [address] Aug, [facility] [address] [id number] [address] [place] [address], [place] [address] Aug, [facility] [address] [id number] [address] [place] [address], [place] [address] July, [facility] [address] [id number] [address] [place] [address], [place] [address] July, [facility] [address] [id number] [address] [place] [address], [place] [address] Jun, [facility] [address] [id number] [address] [place] [address], [place] [address] Jun, [facility] [address] [id number] [address] [place] [address], [place] [address] Jun, [facility] [address] [id number] [address] [place] [address], [place] [address] Jun, [facility] [address] [id number] [address] [place] [address], [place] [address] Jun, [facility] [address] [id number] [address] [place] [address], [place] [address] Jun, [facility] [address] [id number] [address] [place] [address], [place] [address] Jun, [facility] [address] [id number] [address] [place] [address], [place] [address] Jun, [facility] [address] [id number] [address] [place] [address], [place] [address] May, [facility] [address] [id number] [address] [place] [address], [place] [address] May, [facility] [address] [id number] [address] [place] [address], [place] [address] May, [facility] [address] [id number] [address] [place] [address], [place] [address] May, [facility] [address] [id number] [address] [place] [address], [place] [address] May, [facility] [address] [id number] [address] [place] [address], [place] [address] May, [facility] [address] [id number] [address] [place] [address], [place] [address] Apr, [facility] [address] [id number] [address] [place] [address], [place] [address] Apr, [facility] [address] [id number] [address] [place] [address], [place] [address] Apr, [facility] [address] [id number] [address] [place] [address], [place] [address] Apr, [facility] [address] [id number] [address] [place] [address], [place] [address] Mar, [facility] [address] [id number] [address] [place] [address], [place] [address] Mar, [facility] [address] [id number] [address] [place] [address], [place] [address] Mar, [facility] [address] [id number] [address] [place] [address], [place] [address] Mar, [facility] [address] [id number] [address] [place] [address], [place] [address] Mar, [facility] [address] [id number] [address] [place] [address], [place] [address] Mar, [facility] [address] [id number] [address] [place] [address], [place] [address] Feb, [facility] [address] [id number] [address] [place] [address], [place] [address] Feb, [facility] [address] [id number] [address] [place] [address], [place] [address] Feb, [facility] [address] [id number] [address] [place] [address], [place] [address] Feb, [facility] [address] [id number] [address] [place] [address], [place] [address] Feb, [facility] [address] [id number] [address] [place] [address], [place] [address] Feb, [facility] [address] [id number] [address] [place] [address], [place] [address] Feb, [facility] [address] [id number] [address] [place] [address], [place] [address] Feb, [facility] [address] [id number] [address] [place] [address], [place] [address] Feb, [facility] [address] [id number] [address] [place] [address] Feb, [facility] [address] [id number] [address] [place] [address], [place] [address] Feb, [facility] [address] [id number] [address] [place] [address] Feb, [facility] [address] [id number] [address] [place] [address], [place] [address] Jan, [facility] [address] [id number] [address] [place] [address] Jan, [facility] [address] [id number] [address] [place] [address], [place] [address] Jan, [facility] [address] [id number] [address] [place] [address] Jan, [facility] [address] [id number] [address] [place] [address] Jan, [facility] [address] [id number] [address] [place] [address] Jan, [facility] [address] [id number] [address] [place] [address] Jan, [facility] [address] [id number] [address] [place] [address] Jan, [facility] [address] [id number] [address] [place] [address] Jan, [facility] [address] [id number] [address] [place] [address] Jan, [facility] [address] [id number] [address] [place] [address] Dec, [facility] [address] [id number] [address] [place] [address] Dec, [facility] [address] [id number] [address] [place] [address], [place] [address] Nov, [facility] [address] [id number] [facility] [address] Nov, 2012 [facility] [address] [id number] [address] [place] [address], [place] [address] Nov, [facility] [address] [id number] [address] [place] [address], [place] [address] 05 Nov, 2012 [facility] [address] [id number] [address] [place] [address], [place] [address] Nov, [facility] [address] [id number] [address] [place] [address], [place] [address] Oct, [facility] [address] [id number] [address] [place] [address], [place] [address] Oct, [facility] [address] [id number] [address] [place] [address], [place] [address] Oct, [facility] [address] [id number] [address] [place] [address], [place] [address] Oct, [facility] [address] [id number] [address] [place] [address], [place] [address] Oct, [facility] [address] [id number] [address] [place] [address], [place] [address] Sep, [facility] [address] [id number] [address] [place] [address], [place] [address] Sep, [facility] [address] [id number] [address] [place] [address], [place] [address] Sep, [facility] [address] [id number] [address] [place] [address], [place] [address] Sep, [facility] [address] [id number] [address] [place] [address], [place] [address] Sep, [facility] [address] [id number] [address] [place] [address], [place] [address] Sep, [facility] [address] [id number] [address] [place] [address], [place] [address] Aug, [facility] [address] [id number] [address] [place] [address], [place] [address] 07 Aug, 2012 [facility] [address] [id number] [address] [place] [address], [place] [address] July, [facility] [address] [id number] [address] [place] [address], [place] [address] July, [facility] [address] [id number] [address] [place] [address], [place] [address] July, [facility] [address] [id number] [address] [place] [address], [place] [address] Jun, [facility] [address] [id number] [address] [place] [address], [place] [address] Jun, [facility] [address] [id number] [address] [place] [address], [place] [address] Jun, [facility] [address] [id number] [address] [place] [address], [place] [address] Jun, [facility] [address] [id number] [address] [place] [address], [place] [address] May, [facility] [address] [id number] [address] [place] [address], [place] [address] May, [facility] [address] [id number] [address] [place] [address], [place] [address] Apr, [facility] [address] [id number] [address] [place] [address], [place] [address] Apr, [facility] [address] [id number] [address] [place] [address], [place] [address] Apr, [facility] [address] [id number] [address] [place] [address], [place] [address] Apr, [facility] [address] [id number] [address] [place] [address], [place] [address] Apr, [facility] [address] [id number] [address] [place] [address], [place] [address] Apr, [facility] [address] [id number] [address] [place] [address], [place] [id number] Apr, [facility] [address] [id number] [address] [place] [address], [place] [address] Apr, [facility] [address] [id number] [address] [place] [address], [place] [address] Mar, [facility] [address] [id number] [address] [place] [address], [place] [address] Mar, [facility] [address] [id number] [address] [place] [address], [place] [address] Mar, [facility] [address] [id number] [address] [place] [address], [place] [address] Mar, [facility] [address] [id number] [address] [place] [address], [place] [address] Jan, [facility] [address] [id number] [address] [place] [address], [place] [address] Jan, [facility] [address] [id number] [address] [place] [address], [place] [address] Jan, [facility] [address] [id number] [address] [place] [address], [place] [address] Jan, [facility] [address] [id number] [address] [place] [address], [place] [address] Jan, [facility] [address] [id number] [address] [place] [address], [place] [address] Dec, [facility] [address] [id number] [address] [place] [address], [place] [address] Dec, [facility] [address] [id number] [address] [place] [address], [place] [address] Dec, [facility] [address] [id number] [address] [place] [address], [place] [address] Dec, [facility] [address] [id number] [address] [place] [address], [place] [address] Nov, [facility] [address] [id number] [address] [place] [address], [place] [address] Oct, [facility] [address] [id number] [address] [place] [address], [place] [address] Oct, [facility] [address] [id number] [address] [place] [address], [place] [address] Oct, [facility] [address] [id number] [address] [place] [address], [place] [address] Oct, [facility] [address] [id number] [address] [place] [address], [place] [address] Oct, [facility] [address] [id number] [address] [place] [address], [place] [address] Sep, [facility] [address] [id number] [address] [place] [address], [place] [address] Sep, [facility] [address] [id number] [address] [place] [address], [place] [address] Aug, [facility] [address] [id number] [address] [place] [address], [place] [address] Aug, [facility] [address] [id number] [address] [place] [address], [place] [address] Aug, [facility] [address] [id number] [address] [place] [address], [place] [address] Aug, [facility] [address] [id number] [address] [place] [address], [place] [address] July, [facility] [address] [id number] [address] [place] [address], [place] [address] Jun, [facility] [address] [id number] [address] [place] [address], [place] [address] May, [facility] [address] [id number] [address] [place] [address], [place] [address] 27 May, 2011 [facility] [address] [id number] [address] [place] [address], [place] [address] May, [facility] [address] [id number] [address] [place] [address], [place] [address] Mar, [facility] [address] [id number] [address] [place] [address], [place] [address] Feb, [facility] [address] [id number] [address] [place] [address], [place] [address] Feb, [facility] [address] [id number] [address] [place] [address], [place] [address] Jan, [facility] [address] [id number] [address] [place] [address], [place] [address] Jan, [facility] [address] [id number] [address] [place] [address], [place] [address] Jan, [facility] [address] [id number] [address] [place] [address], [place] [address] Jan, [facility] [address] [id number] [address] [place] [address], [place] [address] 30 Jan, 2010 [facility] [address] [id number] [address] [place] [address], [place] [address] Dec, [facility] [address] [id number] [address] [place] [address], [place] [address] Dec, [facility] [address] [id number] [address] [place] [address], [place] [address] Dec, [facility] [address] [id number] [address] [place] [address], [place] [address] 18 May, 2009 [facility] [address] [id number] [address] [place] [address], [place] [address] 15 May, 2009 [facility] [address] [id number] [address] [place] [address], [place] [address] 17 Apr, 2009 [facility] [address] [facility] [id number] [address] [address] Jan, [facility] [address] [facility] [id number] [address] [place] [address] Apr, IMMUNIZATIONS No Known Immunizations SOCIAL HISTORY [...] for cancer Hospitalization History surgeries Hospitalization History [facility] ER, heart- kidney- Stayed a [facility] ICU 12/2017 Hospitalization History [facility] ER 03[facility]2018 Hospitalization History [facility]- Stroke 2 weeks 06/2018 Hospitalization History ER 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
--- OUTSIDE RECORDS SUMMARY | 2019-10-19 08:22 | XMS REPORT ---
Author Author Eugenio LINDA [facility] Address [address] [place] [address] Care Team Providers Care Faculty Support Coordinator Name Role Phone EUGENIO LINDA Unavailable PROBLEMS Type Condition ICD9-CM Code VRU67-WX Code Onset Dates Condition S tatus SNOMED Code Problem Mixed hyperlipidemia E78.2 Active 632155969 Problem Anxiety F41.9 Active 80906889 Problem Other organ or system involvement in systemic julito pus erythematosus M32.19 Active 37958880 Problem Episode of recurrent major d epressive disorder, unspecified depression episode severity F33.9 Active 840176310 Problem Asymptomatic menopausal state Z78.0 Active 38529220 Problem Systemic lupus erythematosus , unspecified SLE type, unspecified organ involvement status M32.9 Active 31269301 Problem Right renal artery stenosis I70.1 Ac tive 72534372148935461 Problem Type 2 diabetes mellitus with foot ulcer E11.621 Active 229533251719801 Problem Lumbago with sciatica, right side M54.41 Active 605802250 Problem Non-pressure chronic ulcer o f other part of unspecified foot limited to breakdown of skin L97.501 Active 351865854 Problem Other chronic pain G89.29 Active 8 6763484 Problem Other chronic pain G89.29 Active 8 5439204 Problem Acute right-sided low back pain with right-sided sciatica M54.41 Active 205843858 Problem FDC current use of anticoagulant Z79.01 Active 147803329 Problem 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 56239385 Problem Frequent falls R29.6 Active 42618 2001 Problem HILARIO (obstructive sleep apnea) G47.33 Active 11280239 Problem Cerebrovascular accident (CV A) due to occlusion of other cerebral artery I63.59 Active 168416536 Problem Sciatica M54.30 Active 05162347 Problem Gangrene I96 Active 106477023 Problem Hepatitis C B19.20 Active 90365650 Problem Unsteady gait R26.81 Active 775509 008 Problem Seborrheic keratoses L82.1 Active 705476732 Problem Non-pressure chronic ulcer o f other part of unspecified foot limited to breakdown of skin L97.501 Active 395754990 Problem Urinary frequency R35.0 Active 16 1934246 Problem Necrosis I96 Active 423174739 Problem 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 Active 521483091 Problem Type 2 diabetes mellitus with foot ulcer E11.621 Active 149360804996081 Problem Arterial insufficiency of lower extremity I73.9 Active 697707146487347 Problem Ventricular tachycardia I47.2 Active 98277621 Problem Atherosclerosis of renal artery I70.1 Active 304626312632537 Problem 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 care 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 worker 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 Z79 .01 Active 538351515 Problem 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 Active 860712362 Problem Chronic anticoagulation Z79.01 Active 590285335 Problem Sialoadenitis, unspecified K11.20 Act gulshan 00027643 Problem Current moderate episode of major depressive disorder without prior episode F32.1 Active 15332495 Problem Body mass index (BMI) 29.0-29.9, adult Z68.29 Active 942227412 Problem Systolic congestive heart failure, unspecified HF chronici ty I50.20 Active 03554272 Problem Hypertension I10 Active 1603903 3 Problem Cardiomyopathy of undetermined type I42.9 Active 10871097 ALLERGIES No Information ENCOUNTERS Encounter Location Date Diagnosis [place] [address] [facility] [id number] [address] [place] [phone] 29 Aug, 2019 Other chronic pain G89.29 [facility] [address] [facility] [id number] [address] [place] [address] Aug, [facility] [address] [facility] [id number] [address] [place] [address] July, Other chronic pain G89.29 [facility] [address] [facility] [id number] [address] [place] [address] Jun, Other chronic pain G89.29 [place] [address] [facility] [id number] [address] [place] [phone] 14 Jun, 2019 Frequent headaches R51 [facility] [address] [place] [id number] [place] [address] Jun, Systolic congestive heart fa ilure, unspecified HF chronicity I50.20 ; Type 2 diabetes mellitus with foot ulcer E11.621 and Coronary artery disease of [place] artery of [place] heart with stable angina pectoris I25.118 [facility] [address] [address] Jun, Other chronic pain G89.29 [place] [address] [address] May, [place] [address] [address] May, Other chronic pain G89.29 [place] [address] [address] Apr, Atherosclerosis of renal art taurus I70.1 ; Cardiomyopathy of undetermined type I42.9 and Ventricular tachycardia I47.2 [place] [address] [address] 14 Apr, 2019 [facility] [address] [place] [id number] [place] [address] Apr, Non-intractable vomiting wit h nausea, unspecified vomiting type R11.2 [place] [address] [place] [id number] [address] [place] [address] Apr, Other chronic pain G89.29 [facility] [address] [place] [id number] [place] [phone] Mar, Other chronic pain G89.29 [place] [address] [place] [id number] [place] [phone] Feb, Renal insufficiency N28.9 [facility] [address] [place] [id number] [place] [phone] Feb, [facility] [address] [id number] [address] [place] [phone] Feb, Frequent headaches R51 and H ypertension I10 [place] [address] [facility] [id number] [address] [place] [address] Feb, Other chronic pain G89.29 [place] [address] [facility] [id number] [address] [place] [address] Jan, Encounter for Medicare ann l wellness [...] episode F32.1 and Encounter for immunization Z23 [place] [address] [facility] [id number] [address] [place] [phone] 22 Jan, [address] [place] [address] [facility] [id number] [address] [place] [address] Jan, Other chronic pain G89.29 [place] [address] [facility] [id number] [address] [place] [address] 28 Dec, 2018 [place] [address] [facility] [id number] [address] [place] [address] Dec, Hypokalemia E87.6 [place] [address] [facility] [id number] [address] [place] [phone] 15 Dec, 2018 Nausea R11.0 [place] [address] [facility] [id number] [address] [place] [phone] 14 Dec, 2018 Other chronic pain G89.29 [place] [address] [facility] [id number] [address] [place] [phone] 10 Dec, 2018 Systolic congestive heart fa ilure, unspecified HF chronicity I50.20 and Ventricular tachycardia I47.2 [place] [address] [place] [id number] [place] [phone] 08 Dec, 2018 [place] [address] [address] Nov, Other chronic pain G89.29 [place] [address] [place] [id number] [place] [phone] Nov, Nausea with vomiting, unspec ified R11.2 [place] [address] [place] [id number] [place] [phone] Oct, [place] [address] [address] Oct, Other chronic pain G89.29 [place] [address] [address] Oct, [place] [address] [address] Oct, Arterial insufficiency of lo wer extremity I73.9 and High risk medication use Z79.899 [facility] [address] [address] Oct, Type 2 diabetes mellitus wit h foot ulcer E11.621 and Non-pressure chronic ulcer of other part of unspecified foot limited to breakdown of skin L97.501 [facility] [address] [place] [id number] [place] [address] Oct, Gangrene I96 [place] [address] [place] [id number] [place] [address] Sep, Other chronic pain G89.29 [place] [address] [address] Sep, Status post CVA Z86.73 ; Uns teady gait R26.81 and Frequent falls R29.6 [place] [address] [address] Sep, Nausea with vomiting, unspec ified R11.2 [facility] [address] [id number] [address] [place] [address] Sep, Other chronic pain G89.29 [facility] [address] [id number] [address] [place] [address] Aug, [facility] [address] [id number] [address] [place] [address] Aug, Other chronic pain G89.29 [facility] [address] [id number] [address] [place] [phone] July, long term care social worker current use of ant icoagulant Z79.01 and Cerebrovascular accident (CVA) due to occlusion of other cerebral artery I63.59 [place] [address] [id number] [address] [place] [address] July, Renal insufficiency N28.9 [facility] [address] [id number] [address] [place] [phone] July, Cerebrovascular accident (CV A) due to occlusion of other cerebral artery I63.59 and Unexplained weight loss R63.4 [place] [address] [id number] [address] [place] [phone] July, [facility] [address] [id number] [address] [place] [address] July, [facility] [address] [id number] [address] [place] [phone] July, Unexplained weight loss R63. 4 and FDC current use of anticoagulant Z79.01 [facility] [address] [id number] [address] [place] [address] July, Other chronic pain G89.29 [facility] [address] [id number] [address] [place] [address] Jun, Other chronic pain G89.29 [facility] [address] [id number] [address] [place] [phone] May, Unexplained weight loss R63. 4 [facility] [address] [facility] [id number] [address] [place] [address] May, Nausea with vomiting, unspec ified R11.2 [facility] [address] [facility] [id number] [address] [place] [address] May, Non-recurrent acute suppurat gulshan otitis media of right ear without spontaneous rupture of tympanic membrane H66.001 and Chronic anticoagulation Z79.01 [facility] [address] [facility] [id number] [address] [place] [address] May, Other chronic pain G89.29 [facility] [address] [facility] [id number] [address] [place] [phone] Apr, Skin tear of right forearm w ithout complication, initial encounter S51.811A ; Skin tear of left forearm without complication, initial encounter S51.812A and Encounter for immunization Z23 [facility] [address] [facility] [id number] [address] [place] [address] Apr, [facility] [address] 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 [id number] [address] [place] [address] Apr, Other chronic pain G89.29 [facility] [address] [facility] [id number] [address] [place] [address] Mar, Other chronic pain G89.29 [facility] [address] [facility] [id number] [address] [place] [phone] Mar, Other chronic pain G89.29 [facility] [address] [place] [id number] [place] [phone] Mar, [facility] [address] [place] [id number] [place] [address] Mar, Other organ or system involv ement in systemic lupus erythematosus M32.19 [facility] [address] [facility] [id number] [address] [place] [phone] Mar, Non-recurrent acute suppurat gulshan otitis media of right ear without spontaneous rupture of tympanic membrane H66.001 and Chronic anticoagulation Z79.01 [facility] [address] [id number] [address] [place] [phone] Feb, Sialoadenitis, unspecified K 11.20 [facility] [address] [facility] [id number] [address] [place] [address] Feb, Other chronic pain G89.29 [facility] [address] [facility] [id number] [address] [place] [phone] Jan, [facility]DC current use of ant icoagulant therapy Z79.01 [place] [address] [facility] [id number] [address] [place] [phone] Jan, Other chronic pain G89.29 ; Lumbago with sciatica, right side M54.41 ; Other chronic pain G89.29 ; Tobacco abuse Z72.0 ; Tobacco abuse counseling Z71.6 ; Mixed hyperlipidemia E78.2 and FDC 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 Z79.01 [facility] [address] [facility] [id number] [address] [place] [phone] Jan, [place] [address] [facility] [id number] [address] [place] [phone] Dec, [facility] [address] [facility] [id number] [address] [place] [address] Dec, [place] [address] [facility] [id number] [address] [place] [phone] Dec, [place] [address] [facility] [id number] [address] [place] [phone] Dec, Mixed hyperlipidemia E78.2 ; Other chronic [...] involvement in systemic lupus erythematosus M32.19 [facility] [address] [place] [id number] Dec, Right renal artery stenosis I70.1 ; Othe r organ or system involvement in systemic lupus erythematosus M32.19 ; Hepatitis C B19.20 ; Tobacco abuse Z72.0 and Weakness R53.1 [facility] [facility] [address] [place] [id number] Dec, [place] [address] [facility] [id number] [address] [place] [address] Dec, [place] [address] [facility] [id number] [address] [place] [address] Dec, Other organ or system involv ement in systemic lupus erythematosus M32.19 [facility] [address] [place] [id number] Dec, Right renal artery stenosis I70.1 ; Inju ry of right kidney, sequela S37.001S ; Tobacco abuse Z72.0 ; Systemic lupus erythematosus, unspecified SLE type, unspecified organ involvement status M32.9 ; Hepatitis C B19.20 and Candidiasis of female genitalia B37.3 [place] [address] [id number] [address] [place] [phone] Dec, Other organ or system involv ement in systemic lupus erythematosus M32.19 [place] [address] [id number] [address] [place] [phone] Dec, Other organ or system involv ement in systemic lupus erythematosus M32.19 [place] [address] [facility] [id number] [address] [place] [phone] Dec, [facility] [address] [id number] [address] [place] [phone] Nov, Other organ or system involv ement in systemic lupus erythematosus M32.19 [facility] [address] [id number] [address] [place] [phone] Oct, Other organ or system involv ement in systemic lupus erythematosus M32.19 [facility] [address] [id number] [address] [place] [phone] Sep, Other organ or system involv ement in systemic lupus erythematosus M32.19 [facility] [address] [id number] [address] [place] [phone] Aug, Anxiety F41.9 [facility] [address] [id number] [address] [place] [phone] Aug, Other organ or system involv ement in systemic lupus erythematosus M32.19 [facility] [address] [facility] [id number] [address] [place] [address] July, Medicare annual wellness vis it, initial Z00.00 ; Anxiety F41.9 ; HILARIO (obstructive sleep apnea) G47.33 ; Hepatitis C B19.20 ; Other chronic pain G89.29 ; Asymptomatic menopausal state Z78.0 and Episode of recurrent major depressive disorder, unspecified depression episode severity F33.9 [facility] [address] [facility] [id number] [address] [place] [phone] July, Anxiety F41.9 [facility] [address] [id number] [address] [place] [phone] July, Other organ or system involv ement in systemic lupus erythematosus M32.19 [facility] [address] [id number] [address] [place] [address] July, [facility] [address] [facility] [id number] [address] [place] [address] Jun, Other organ or system involv ement in systemic lupus erythematosus M32.19 ; BMI 40.0-44.9, adult Z68.41 ; Other chronic pain G89.29 and Controlled substance agreement signed Z79.899 [facility] [address] [facility] [id number] [address] [place], [place] [phone] May, Sciatica M54.30 [facility] [address] [facility] [id number] [address] [place] [phone] Apr, Sciatica M54.30 [facility] [address] [facility] [id number] [address] [place] [address] Mar, Sciatica M54.30 [place] [address] [id number] [address] [place] [address] Feb, Sciatica M54.30 [place] [address] [facility] [id number] [address] [place] [address] Jan, Sciatica M54.30 [place] [address] [facility] [id number] [address] [place] [address] 14 Jan, 2017 Sciatica M54.30 [place] [address] [facility] [id number] [address] [place] [address] Dec, Sciatica M54.30 [place] [address] [facility] [id number] [address] [place] [address] 18 Dec, 2016 Sciatica M54.30 [place] [address] [place] [id number] [place] [address] 29 Nov, 2016 Mixed hyperlipidemia E78.2 ; Chronic seasonal allergic rhinitis due to other allergen J30.2 and Family history of early CAD Z82.49 [place] [address] [facility] [id number] [address] [place] [address] Nov, Sciatica M54.30 [facility] [address] [facility] [id number] [address] [place] [address] 18 Nov, 2016 Mixed hyperlipidemia E78.2 ; Chronic seasonal allergic rhinitis due to other allergen J30.2 ; Family history of early CAD Z82.49 ; Other chronic pain G89.29 and Pain in left shoulder M25.512 [facility] [address] [id number] [address] [place] [address] Nov, Acute pain of left shoulder M25.512 [facility] [address] [id number] [address] [place] [phone] Oct, Sciatica M54.30 [facility] [address] [id number] [address] [place] [phone] Oct, [facility] [address] [id number] [address] [place] [address] Sep, Sciatica M54.30 [place] [address] [facility] [id number] [address] [place] [address] Sep, Acute pain of left shoulder M25.512 [facility] [address] [facility] [id number] [address] [place] [address] Sep, Acute pain of left shoulder M25.512 [facility] [address] [facility] [id number] [address] [place] [address] Aug, Sciatica M54.30 [place] [address] [facility] [id number] [address] [place] [address] Aug, Sciatica M54.30 ; Tobacco ab use Z72.0 and Tobacco abuse counseling Z71.6 [facility] [address] [facility] [id number] [address] [place] [address] Aug, Acute pain of left shoulder M25.512 [facility] [address] [facility] [id number] [address] [place] [address] Aug, Contusion of right shoulder, initial encounter S40.011A ; Acute pain of left shoulder M25.512 and Shortness of breath R06.02 [facility] [address] [facility] [id number] [address] [place] [address] Aug, Lumbago with sciatica, right side M54.41 [facility] [address] [id number] [address] [place] [address] July, [facility] [address] [facility] [id number] [address] [place] [address] July, Lumbago with sciatica, right side M54.41 [facility] [address] [facility] [id number] [address] [place] [address] Jun, Lumbago with sciatica, right side M54.41 [facility] [address] [facility] [id number] [address] [place] [address] May, Lumbago with sciatica, right side M54.41 [facility] [address] [facility] [id number] [address] [place] [phone] May, Herpes zoster without compli cation B02.9 [facility] [address] [facility] [id number] [address] [place] [address] May, Back pain M54.9 and Acute ri ght-sided low back pain with right-sided sciatica M54.41 [facility] [address] [facility] [id number] [address] [place] [phone] Apr, [facility] [address] [facility] [id number] [address] [place] [phone] Apr, Lumbago with sciatica, right side M54.41 and Other chronic pain G89.29 [facility] [address] [facility] [id number] [address] [place] [phone] Apr, [facility] [address] [facility] [id number] [address] [place] [phone] Mar, [facility] [address] [facility] [id number] [address] [place] [id number] Mar, [facility] [address] [facility] [id number] [address] [place] [id number] Feb, [facility] [address] [facility] [id number] [address] [place] [id number] Jan, Urinary frequency R35.0 [facility] [address] [id number] [address] [place] [id number] Jan, [facility] [address] [id number] [address] [place] [id number] Dec, [facility] [address] [facility] [id number] [address] [place] [id number] Oct, [facility] [address] [id number] [address] [place] [id number] Sep, [facility] [address] [id number] [address] [place] [phone] Sep, Foreign body in left foot, i nitial encounter S90.852A [facility] [address] [facility] [id number] [address] [place] [id number] Aug, [facility] [address] [facility] [id number] [address] [place] [id number] July, Sciatica M54.30 [facility] [address] [id number] [address] [place] [id number] Jun, [facility] [address] [facility] [id number] [address] [place] [address] May, Osteoarthritis M19.90 [facility] [address] [facility] [id number] [address] [place] [id number] May, [facility] [address] [facility] [id number] [address] [place] [phone] May, Pain in right hip M25.551 [facility] [address] [facility] [id number] [address] [place] [phone] May, Tinea corporis B35.4 [facility] [address] [facility] [id number] [address] [place] [id number] 10 Apr, 2015 Pain in right hip M25.551 [facility] [address] [facility] [id number] [address] [place] [id number] Mar, Pain in right hip M25.551 [facility] [address] [id number] [address] [place] [phone] Mar, [facility] [address] [id number] [address] [place] [phone] Feb, Pain in right hip M25.551 [facility] [address] [id number] [address] [place] [id number] Jan, Acute bronchitis, unspecifie d organism J20.9 and Cough R05 [facility] [address] [id number] [address] [place] [id number] Jan, Pain in right hip M25.551 [facility] [address] [id number] [address] [place] [id number] Dec, Pain in right hip M25.551 [facility] [address] [id number] [address] [place] [phone] Nov, Acute bronchitis 466.0 [facility] [address] [id number] [address] [place] [phone] Nov, [facility] [address] [id number] [address] [place] [phone] Oct, [facility] [address] [id number] [address] [place] [phone] Sep, [facility] [address] [id number] [address] [place] [phone] Aug, [facility] [address] [id number] [address] [place] [phone] July, [facility] [address] [id number] [address] [place] [id number] 14 Jun, 2014 [facility] [address] [id number] [address] [place] [phone] Jun, [facility] [address] [id number] [address] [place] [address], [place] [address] 18 May, 2014 [facility] [address] [id number] [address] [place] [address], [place] [address] 18 May, 2014 [facility] [address] [id number] [address] [place] [address], [place] [address] 17 Apr, 2014 [facility] [address] [id number] [address] [place] [address], [place] [address] Apr, 2014 [facility] [address] [id number] [address] [place] [address], [place] [address] Apr, 2014 [facility] [address] [id number] [address] [place] [address], [place] [address] Apr, 2014 [facility] [address] [id number] [address] [place] [address], [place] [address] 06 Apr, 2014 [facility] [address] [id number] [address] [place] [address], [place] [address] Apr, 2014 [facility] [address] [id number] [address] [place] [address], [place] [address] Mar, [facility] [address] [id number] [address] [place] [address], [place] [address] Mar, [facility] [address] [id number] [address] [place] [address], [place] [address] 15 Feb, 2014 [facility] [address] [id number] [address] [place] [address], [place] [address] Feb, [facility] [address] [id number] [address] [place] [address], [place] [address] Feb, [facility] [address] [id number] [address] [place] [address], [place] [id number] Dec, [facility] [address] [id number] [address] [place] [address], [place] [address] Dec, [facility] [address] [id number] [address] [place] [address], [place] [address] Nov, [facility] [address] [id number] [facility] [place] [address] 17 Nov, 2013 [facility] [address] [id number] [address] [place] [address], [place] [address] Nov, [facility] [address] [id number] [address] [place] [address], [place] [address] Nov, [facility] [address] [id number] [address] [place] [address], [place] [address] Sep, [facility] [address] [id number] [address] [place] [address], [place] [address] Sep, [facility] [address] [id number] [address] [place] [address], [place] [address] Sep, [facility] [address] [id number] [address] [place] [address], [place] [address] Sep, [facility] [address] [id number] [address] [place] [address], [place] [address] Aug, [facility] [address] [id number] [address] [place] [address], [place] [address] Aug, [facility] [address] [id number] [address] [place] [address], [place] [address] Aug, [facility] [address] [id number] [address] [place] [address], [place] [address] Aug, [facility] [address] [id number] [address] [place] [address], [place] [address] July, [facility] [address] [id number] [address] [place] [address], [place] [address] July, [facility] [address] [id number] [address] [place] [address], [place] [address] Jun, [facility] [address] [id number] [address] [place] [address], [place] [address] Jun, [facility] [address] [id number] [address] [place] [address], [place] [address] Jun, [facility] [address] [id number] [address] [place] [address], [place] [address] Jun, [facility] [address] [id number] [address] [place] [address], [place] [address] Jun, [facility] [address] [id number] [address] [place] [address], [place] [address] Jun, [facility] [address] [id number] [address] [place] [address], [place] [address] Jun, [facility] [address] [id number] [address] [place] [address], [place] [address] Jun, [facility] [address] [id number] [address] [place] [address], [place] [address] May, [facility] [address] [id number] [address] [place] [address], [place] [address] May, [facility] [address] [id number] [address] [place] [address], [place] [address] May, [facility] [address] [id number] [address] [place] [address], [place] [address] May, [facility] [address] [id number] [address] [place] [address], [place] [address] May, [facility] [address] [id number] [address] [place] [address], [place] [address] May, [facility] [address] [id number] [address] [place] [address], [place] [address] Apr, [facility] [address] [id number] [address] [place] [address], [place] [address] Apr, [facility] [address] [id number] [address] [place] [address], [place] [address] Apr, [facility] [address] [id number] [address] [place] [address], [place] [address] Apr, [facility] [address] [id number] [address] [place] [address], [place] [address] Mar, [facility] [address] [id number] [address] [place] [address], [place] [address] Mar, [facility] [address] [id number] [address] [place] [address], [place] [address] Mar, [facility] [address] [id number] [address] [place] [address], [place] [address] Mar, [facility] [address] [id number] [address] [place] [address], [place] [address] Mar, [facility] [address] [id number] [address] [place] [address], [place] [address] Mar, [facility] [address] [id number] [address] [place] [address], [place] [address] Feb, [facility] [address] [id number] [address] [place] [address], [place] [address] Feb, [facility] [address] [id number] [address] [place] [address], [place] [address] Feb, [facility] [address] [id number] [address] [place] [address], [place] [address] Feb, [facility] [address] [id number] [address] [place] [address], [place] [address] Feb, [facility] [address] [id number] [address] [place] [address], [place] [address] Feb, [facility] [address] [id number] [address] [place] [address], [place] [address] Feb, [facility] [address] [id number] [address] [place] [address], [place] [address] Feb, [facility] [address] [id number] [address] [place] [address], [place] [address] Feb, [facility] [address] [id number] [address] [place] [id number] Feb, [facility] [address] [id number] [address] [place] [address], [place] [address] Feb, [facility] [address] [id number] [address] [place] [phone] Feb, [facility] [address] [id number] [address] [place] [address], [place] [address] Jan, [facility] [address] [id number] [address] [place] [phone] Jan, [facility] [address] [id number] [address] [place] [address], [place] [address] Jan, [facility] [address] [id number] [address] [place] [id number] Jan, [facility] [address] [id number] [address] [place] [id number] Jan, [facility] [address] [id number] [address] [place] [phone] Jan, [facility] [address] [id number] [address] [place] [phone] Jan, [facility] [address] [id number] [address] [place] [phone] Jan, [facility] [address] [id number] [address] [place] [id number] Jan, [facility] [address] [id number] [address] [place] [id number] Jan, [facility] [address] [id number] [address] [place] [id number] Dec, [facility] [address] [id number] [address] [place] [id number] Dec, [facility] [address] [id number] [address] [place] [address], [place] [address] Nov, [facility] [address] [id number] [facility] [place] [address] Nov, 2012 [facility] [address] [id number] [address] [place] [address], [place] [address] Nov, [facility] [address] [id number] [address] [place] [address], [place] [address] 05 Nov, 2012 [facility] [address] [id number] [address] [place] [address], [place] [address] Nov, [facility] [address] [id number] [address] [place] [address], [place] [address] Oct, [facility] [address] [id number] [address] [place] [address], [place] [address] Oct, [facility] [address] [id number] [address] [place] [address], [place] [address] Oct, [facility] [address] [id number] [address] [place] [address], [place] [address] Oct, [facility] [address] [id number] [address] [place] [address], [place] [address] Oct, [facility] [address] [id number] [address] [place] [address], [place] [address] Sep, [facility] [address] [id number] [address] [place] [address], [place] [address] Sep, [facility] [address] [id number] [address] [place] [address], [place] [address] Sep, [facility] [address] [id number] [address] [place] [address], [place] [address] Sep, [facility] [address] [id number] [address] [place] [address], [place] [address] Sep, [facility] [address] [id number] [address] [place] [address], [place] [address] Sep, [facility] [address] [id number] [address] [place] [address], [place] [address] Aug, [facility] [address] [id number] [address] [place] [address], [place] [address] 07 Aug, 2012 [facility] [address] [id number] [address] [place] [address], [place] [address] July, [facility] [address] [id number] [address] [place] [address], [place] [address] July, [facility] [address] [id number] [address] [place] [address], [place] [address] July, [facility] [address] [id number] [address] [place] [address], [place] [address] Jun, [facility] [address] [id number] [address] [place] [address], [place] [address] Jun, [facility] [address] [id number] [address] [place] [address], [place] [address] Jun, [facility] [address] [id number] [address] [place] [address], [place] [address] Jun, [facility] [address] [id number] [address] [place] [address], [place] [address] May, [facility] [address] [id number] [address] [place] [address], [place] [address] May, [facility] [address] [id number] [address] [place] [address], [place] [address] Apr, [facility] [address] [id number] [address] [place] [address], [place] [address] Apr, [facility] [address] [id number] [address] [place] [address], [place] [address] Apr, [facility] [address] [id number] [address] [place] [address], [place] [address] Apr, [facility] [address] [id number] [address] [place] [address], [place] [address] Apr, [facility] [address] [id number] [address] [place] [address], [place] [address] Apr, [facility] [address] [id number] [address] [place] [address], [place] [id number] Apr, [facility] [address] [id number] [address] [place] [address], [place] [address] Apr, [facility] [address] [id number] [address] [place] [address], [place] [address] Mar, [facility] [address] [id number] [address] [place] [address], [place] [address] Mar, [facility] [address] [id number] [address] [place] [address], [place] [address] Mar, [facility] [address] [id number] [address] [place] [address], [place] [address] Mar, [facility] [address] [id number] [address] [place] [address], [place] [address] Jan, [facility] [address] [id number] [address] [place] [address], [place] [address] Jan, [facility] [address] [id number] [address] [place] [address], [place] [address] Jan, [facility] [address] [id number] [address] [place] [address], [place] [address] Jan, [facility] [address] [id number] [address] [place] [address], [place] [address] Jan, [facility] [address] [id number] [address] [place] [address], [place] [address] Dec, [facility] [address] [id number] [address] [place] [address], [place] [address] Dec, [facility] [address] [id number] [address] [place] [address], [place] [address] Dec, [facility] [address] [id number] [address] [place] [address], [place] [address] Dec, [facility] [address] [id number] [address] [place] [address], [place] [address] Nov, [facility] [address] [id number] [address] [place] [address], [place] [address] Oct, [facility] [address] [id number] [address] [place] [address], [place] [address] Oct, [facility] [address] [id number] [address] [place] [address], [place] [address] Oct, [facility] [address] [id number] [address] [place] [address], [place] [address] Oct, [facility] [address] [id number] [address] [place] [address], [place] [address] Oct, [facility] [address] [id number] [address] [place] [address], [place] [address] Sep, [facility] [address] [id number] [address] [place] [address], [place] [address] Sep, [facility] [address] [id number] [address] [place] [address], [place] [address] Aug, [facility] [address] [id number] [address] [place] [address], [place] [address] Aug, [facility] [address] [id number] [address] [place] [address], [place] [address] Aug, [facility] [address] [id number] [address] [place] [address], [place] [address] Aug, [facility] [address] [id number] [address] [place] [address], [place] [address] July, [facility] [address] [id number] [address] [place] [address], [place] [address] Jun, [facility] [address] [id number] [address] [place] [address], [place] [address] May, [facility] [address] [id number] [address] [place] [address], [place] [id number] 27 May, 2011 [facility] [address] [id number] [address] [place] [address], [place] [address] May, [facility] [address] [id number] [address] [place] [address], [place] [address] Mar, [facility] [address] [id number] [address] [place] [address], [place] [address] Feb, [facility] [address] [id number] [address] [place] [address], [place] [address] Feb, [facility] [address] [id number] [address] [place] [address], [place] [address] Jan, [facility] [address] [id number] [address] [place] [address], [place] [address] Jan, [facility] [address] [id number] [address] [place] [address], [place] [address] Jan, [facility] [address] [id number] [address] [place] [address], [place] [address] Jan, [facility] [address] [id number] [address] [place] [address], [place] [id number] 30 Jan, 2010 [facility] [address] [id number] [address] [place] [address], [place] [address] Dec, [facility] [address] [id number] [address] [place] [address], [place] [address] Dec, [facility] [address] [id number] [address] [place] [address], [place] [address] Dec, [facility] [address] [id number] [address] [place] [address], [place] [address] 18 May, 2009 [facility] [address] [id number] [address] [place] [address], [place] [address] 15 May, 2009 [facility] [address] [id number] [address] [place] [address], [place] [address] 17 Apr, 2009 [facility] [address] [facility] [id number] [address] [address] Jan, [facility] [address] [facility] [id number] [address] [place] [id number] Apr, IMMUNIZATIONS No Known Immunizations SOCIAL HISTORY [...] for cancer Hospitalization History surgeries Hospitalization History [facility] ER, heart- kidney[facility] Stayed a [facility] ICU 12/2017 Hospitalization History [facility] ER 03/2018 Hospitalization History [facility]- Stroke 2 weeks 06/2018 Hospitalization History ER 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
--- OUTSIDE RECORDS SUMMARY | 2019-10-19 08:22 | XMS REPORT ---
Author Author Eugenio LINDA [facility] Address [address] [place] [address] Care Team Providers Care Water Meter Reader Name Role Phone EUGENIO LINDA Unavailable PROBLEMS Type Condition ICD9-CM Code VVM22-XR Code Onset Dates Condition S tatus SNOMED Code Problem Mixed hyperlipidemia E78.2 Active 121216223 Problem Anxiety F41.9 Active 53452632 Problem Other organ or system involvement in systemic julito pus erythematosus M32.19 Active 92081805 Problem Episode of recurrent major d epressive disorder, unspecified depression episode severity F33.9 Active 195387184 Problem Asymptomatic menopausal state Z78.0 Active 73724887 Problem Systemic lupus erythematosus , unspecified SLE type, unspecified organ involvement status M32.9 Active 03559941 Problem Right renal artery stenosis I70.1 Ac tive [id number] Problem Type 2 diabetes mellitus with foot ulcer E11.621 Active 275184417235632 Problem Lumbago with sciatica, right side M54.41 Active 125486919 Problem Non-pressure chronic ulcer o f other part of unspecified foot limited to breakdown of skin L97.501 Active 796080396 Problem Other chronic pain G89.29 Active 8 3457941 Problem Other chronic pain G89.29 Active 8 4230833 Problem Acute right-sided low back pain with right-sided sciatica M54.41 Active 197979760 Problem [facility] current use of anticoagulant Z79.01 Active 896136278 Problem 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 56332821 Problem Frequent falls R29.6 Active 05769 2001 Problem HILARIO (obstructive sleep apnea) G47.33 Active 51390901 Problem Cerebrovascular accident (CV A) due to occlusion of other cerebral artery I63.59 Active 638430785 Problem Sciatica M54.30 Active 47466850 Problem Gangrene I96 Active 760496928 Problem Hepatitis C B19.20 Active 56414685 Problem Unsteady gait R26.81 Active 045052 008 Problem Seborrheic keratoses L82.1 Active 527963330 Problem Non-pressure chronic ulcer o f other part of unspecified foot limited to breakdown of skin L97.501 Active 986143795 Problem Urinary frequency R35.0 Active 16 6715496 Problem Necrosis I96 Active 660459218 Problem 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 Active 375039781 Problem Type 2 diabetes mellitus with foot ulcer E11.621 Active 884584379034498 Problem Arterial insufficiency of lower extremity I73.9 Active 319344364451718 Problem Ventricular tachycardia I47.2 Active 34784224 Problem Atherosclerosis of renal artery I70.1 Active 068242882442287 Problem superintendent terminal 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 Z79 .01 Active 422912925 Problem 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 Active 197692463 Problem Chronic anticoagulation Z79.01 Active 122838917 Problem Sialoadenitis, unspecified K11.20 Act gulshan 71091093 Problem Current moderate episode of major depressive disorder without prior episode F32.1 Active 70234476 Problem Body mass index (BMI) 29.0-29.9, adult Z68.29 Active 395311011 Problem Systolic congestive heart failure, unspecified HF chronici ty I50.20 Active 75254347 Problem Hypertension I10 Active 1106222 3 Problem Cardiomyopathy of undetermined type I42.9 Active 77158356 ALLERGIES No Information ENCOUNTERS Encounter Location Date Diagnosis [place] [address] [facility] [id number] [address] [place] [id number] 08 Sep, 2019 [facility] [address] [facility] [id number] [address] [place] [id number] Aug, Other chronic pain G89.29 [place] [address] [place] [id number] [address] [place] [id number] Aug, [facility] [address] [place] [id number] [address] [place] [id number] July, Other chronic pain G89.29 [place] [address] [facility] [id number] [address] [place] [id number] 30 Jun, 2019 Other chronic pain G89.29 [facility] [address] [facility] [id number] [address] [place] [id number] 14 Jun, 2019 Frequent headaches R51 [facility] [address] [facility] [id number] [address] [place] [id number] 03 Jun, 2019 Systolic congestive heart fa ilure, unspecified HF chronicity I50.20 ; Type 2 diabetes mellitus with foot ulcer E11.621 and Coronary artery disease of [place]etm[place] artery of [place] heart with stable angina pectoris I25.118 [facility] [address] [facility] [id number] [address] [place] [id number] Jun, Other chronic pain G89.29 [place] [address] [facility] [id number] [address] [place] [id number] 16 May, 2019 [place] [address] [place] [id number] [place] [phone] May, Other chronic pain G89.29 [facility] [address] [facility] [id number] [address] [place] [id number] Apr, Atherosclerosis of renal art taurus I70.1 ; Cardiomyopathy of undetermined type I42.9 and Ventricular tachycardia I47.2 [facility] [address] [facility] [id number] [address] [place] [id number] 14 Apr, 2019 [facility] [address] [facility] [id number] [address] [place] [id number] 11 Apr, 2019 Non-intractable vomiting wit h nausea, unspecified vomiting type R11.2 [facility] [address] [facility] [id number] [address] [place] [id number] 03 Apr, 2019 Other chronic pain G89.29 [facility] [address] [facility] [id number] [address] [place] [id number] Mar, Other chronic pain G89.29 [place] [address] [facility] [id number] [address] [place] [id number] Feb, Renal insufficiency N28.9 [facility] [address] [id number] [address] [place] [id number] Feb, [facility] [address] [facility] [id number] [address] [place] [id number] Feb, Frequent headaches R51 and H ypertension I10 [facility] [address] [facility] [id number] [address] [place] [id number] Feb, Other chronic pain G89.29 [facility] [address] [facility] [id number] [address] [place] [phone] Jan, Encounter for Medicare annua l wellness [...] episode F32.1 and Encounter for immunization Z23 [facility] [address] [facility] [id number] [address] [place] [id number] Jan, [facility] [address] [facility] [id number] [address] [place] [id number] Jan, Other chronic pain G89.29 [facility] [address] [facility] [id number] [address] [place] [id number] Dec, [facility] [address] [facility] [id number] [address] [place] [id number] Dec, Hypokalemia E87.6 [place] [address] [facility] [id number] [address] [place] [id number] 15 Dec, 2018 Nausea R11.0 [facility] [address] [facility] [id number] [address] [place] [id number] 14 Dec, 2018 Other chronic pain G89.29 [facility] [address] [facility] [id number] [address] [place] [id number] Dec, Systolic congestive heart fa ilure, unspecified HF chronicity I50.20 and Ventricular tachycardia I47.2 [facility] [address] [place] [id number] [address] [place] [id number] Dec, [facility] [address] [place] [id number] [address] [place] [id number] Nov, Other chronic pain G89.29 [place] [id number] [place] [phone] Nov, Nausea with vomiting, unspec ified R11.2 [place] [address] [place] [id number] [place] [id number] Oct, [place] [address] [place] [id number] [place] [id number] Oct, Other chronic pain G89.29 [place] [address] [id number] Oct, [facility] [address] [address] Oct, Arterial insufficiency of lo wer extremity I73.9 and High risk medication use Z79.899 [facility] [address] [place] [id number] [address] [place] [id number] Oct, Type 2 diabetes mellitus wit h foot ulcer E11.621 and Non-pressure chronic ulcer of other part of unspecified foot limited to breakdown of skin L97.501 [facility] [address] [place] [id number] [address] [place] [phone] Oct, Gangrene I96 [facility] [address] [place] [id number] [place] [phone] Sep, Other chronic pain G89.29 [facility] [address] [place] [id number] [address] [place] [id number] Sep, Status post CVA Z86.73 ; Uns teady gait R26.81 and Frequent falls R29.6 [place] [address] [facility] [id number] [address] [place] [id number] Sep, Nausea with vomiting, unspec ified R11.2 [place] [address] [facility] [id number] [address] [place] [phone] Sep, Other chronic pain G89.29 [place] [address] [facility] [id number] [address] [place] [id number] Aug, [place] [address] [facility] [id number] [address] [place] [id number] Aug, Other chronic pain G89.29 [place] [address] [facility] [id number] [address] [place] [id number] July, superintendent terminal current use of ant icoagulant Z79.01 and Cerebrovascular accident (CVA) due to occlusion of other cerebral artery I63.59 [place] [address] [facility] [id number] [address] [place] [phone] July, Renal insufficiency N28.9 [place] [address] [facility] [id number] [address] [place] [id number] July, Cerebrovascular accident (CV A) due to occlusion of other cerebral artery I63.59 and Unexplained weight loss R63.4 [place] [address] [facility] [id number] [address] [place] [id number] July, [place] [address] [facility] [id number] [address] [place] [phone] July, [place] [address] [facility] [id number] [address] [place] [id number] July, Unexplained weight loss R63. 4 and superintendent terminal current use of anticoagulant Z79.01 [place] [address] [facility] [id number] [address] [place] [id number] July, Other chronic pain G89.29 [place] [address] [facility] [id number] [address] [place] [id number] Jun, Other chronic pain G89.29 [facility] [address] [id number] [address] [place] [phone] May, Unexplained weight loss R63. 4 [facility] [address] [facility] [id number] [address] [place] [id number] May, Nausea with vomiting, unspec ified R11.2 [facility] [address] [facility] [id number] [address] [place] [id number] May, Non-recurrent acute suppurat gulshan otitis media of right ear without spontaneous rupture of tympanic membrane H66.001 and Chronic anticoagulation Z79.01 [facility] [address] [facility] [id number] [address] [place] [id number] May, Other chronic pain G89.29 [facility] [address] [facility] [id number] [address] [place] [id number] Apr, Skin tear of right forearm w ithout complication, initial encounter S51.811A ; Skin tear of left forearm without complication, initial encounter S51.812A and Encounter for immunization Z23 [facility] [address] [facility] [id number] [address] [place] [id number] Apr, [facility] [address] [facility] [id number] [address] [place] [id number] Apr, Diarrhea, unspecified R19.7 ; Nausea with vomiting, unspecified R11.2 and 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 [facility] [address] [facility] [id number] [address] [place] [id number] Apr, Other chronic pain G89.29 [facility] [address] [facility] [id number] [address] [place] [id number] Mar, Other chronic pain G89.29 [facility] [address] [facility] [id number] [address] [place] [id number] Mar, Other chronic pain G89.29 [facility] [address] [id number] [address] [place] [id number] 08 Mar, 2018 [facility] [address] [id number] [address] [place] [id number] Mar, Other organ or system involv ement in systemic lupus erythematosus M32.19 [facility] [address] [id number] [address] [place] [id number] Mar, Non-recurrent acute suppurat gulshan otitis media of right ear without spontaneous rupture of tympanic membrane H66.001 and Chronic anticoagulation Z79.01 [facility] [address] [id number] [address] [place] [phone] Feb, Sialoadenitis, unspecified K 11.20 [facility] [address] [id number] [address] [place] [phone] Feb, Other chronic pain G89.29 [facility] [address] [id number] [address] [place] [phone] Jan, superintendent terminal current use of ant icoagulant therapy Z79.01 [facility] [address] [id number] [address] [place] [id number] Jan, Other chronic pain G89.29 ; Lumbago with sciatica, right side M54.41 ; Other chronic pain G89.29 ; Tobacco abuse Z72.0 ; Tobacco abuse counseling Z71.6 ; Mixed hyperlipidemia E78.2 and [facility] 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 Z79.01 [facility] [address] [id number] [address] [place] [phone] Jan, [facility] [address] [id number] [address] [place] [id number] Dec, [facility] [address] [id number] [address] [place] [id number] Dec, [facility] [address] [id number] [address] [place] [id number] Dec, [facility] [address] [facility] [id number] [address] [place] [id number] Dec, Mixed hyperlipidemia E78.2 ; Other chronic [...] in systemic lupus erythematosus M32.19 [facility] [address] [place] [id number] Dec, Right renal artery stenosis I70.1 ; Othe r organ or system involvement in systemic lupus erythematosus M32.19 ; Hepatitis C B19.20 ; Tobacco abuse Z72.0 and Weakness R53.1 [facility] [address] [place] [id number] Dec, [facility] [address] [facility] [id number] [address] [place] [id number] Dec, [facility] [address] [facility] [id number] [address] [place] [phone] Dec, Other organ or system involv ement in systemic lupus erythematosus M32.19 [facility] [address] [place] [id number] Dec, Right renal artery stenosis I70.1 ; Inju ry of right kidney, sequela S37.001S ; Tobacco abuse Z72.0 ; Systemic lupus erythematosus, unspecified SLE type, unspecified organ involvement status M32.9 ; Hepatitis C B19.20 and Candidiasis of female genitalia B37.3 [facility] [address] [facility] [id number] [address] [place] [id number] 05 Dec, 2017 Other organ or system involv ement in systemic lupus erythematosus M32.19 [facility] [address] [facility] [id number] [address] [place] [phone] Dec, Other organ or system involv ement in systemic lupus erythematosus M32.19 [facility] [address] [id number] [address] [place] [id number] Dec, [facility] [address] [id number] [address] [place] [id number] Nov, Other organ or system involv ement in systemic lupus erythematosus M32.19 [facility] [address] [id number] [address] [place] [phone] Oct, Other organ or system involv ement in systemic lupus erythematosus M32.19 [facility] [address] [id number] [address] [place] [id number] Sep, Other organ or system involv ement in systemic lupus erythematosus M32.19 [facility] [address] [id number] [address] [place] [id number] Aug, Anxiety F41.9 [facility] [address] [id number] [address] [place] [id number] Aug, Other organ or system involv ement in systemic lupus erythematosus M32.19 [facility] [address] [id number] [address] [place] [id number] July, Medicare annual wellness vis it, initial Z00.00 ; Anxiety F41.9 ; HILARIO (obstructive sleep apnea) G47.33 ; Hepatitis C B19.20 ; Other chronic pain G89.29 ; Asymptomatic menopausal state Z78.0 and Episode of recurrent major depressive disorder, unspecified depression episode severity F33.9 [facility] [address] [id number] [address] [place] [phone] July, Anxiety F41.9 [facility] [address] [id number] [address] [place] [phone] July, Other organ or system involv ement in systemic lupus erythematosus M32.19 [facility] [address] [id number] [address] [place] [id number] July, [facility] [address] [id number] [address] [place] [phone] Jun, Other organ or system involv ement in systemic lupus erythematosus M32.19 ; BMI 40.0-44.9, adult Z68.41 ; Other chronic pain G89.29 and Controlled substance agreement signed Z79.899 [facility] [address] [facility] [id number] [address] [place] [id number] 08 May, 2017 Sciatica M54.30 [facility] [address] [id number] [address] [place] [id number] Apr, Sciatica M54.30 [facility] [address] [facility] [id number] [address] [place] [id number] Mar, Sciatica M54.30 [facility] [address] [facility] [id number] [address] [place] [id number] Feb, Sciatica M54.30 [place] [address] [facility] [id number] [address] [place] [id number] 15 Jan, 2017 Sciatica M54.30 [place] [address] [facility] [id number] [address] [place] [id number] 14 Jan, 2017 Sciatica M54.30 [place] [address] [facility] [id number] [address] [place] [phone] Dec, Sciatica M54.30 [place] [address] [facility] [id number] [address] [place] [id number] 18 Dec, 2016 Sciatica M54.30 [facility] [address] [facility] [id number] [address] [place] [id number] 29 Nov, 2016 Mixed hyperlipidemia E78.2 ; Chronic seasonal allergic rhinitis due to other allergen J30.2 and Family history of early CAD Z82.49 [facility] [address] [facility] [id number] [address] [place] [phone] Nov, Sciatica M54.30 [facility] [address] [facility] [id number] [address] [place] [id number] 18 Nov, 2016 Mixed hyperlipidemia E78.2 ; Chronic seasonal allergic rhinitis due to other allergen J30.2 ; Family history of early CAD Z82.49 ; Other chronic pain G89.29 and Pain in left shoulder M25.512 [facility] [address] [facility] [id number] [address] [place] [id number] Nov, Acute pain of left shoulder M25.512 [facility] [address] [facility] [id number] [address] [place] [id number] Oct, Sciatica M54.30 [place] [address] [facility] [id number] [address] [place] [phone] Oct, [place] [address] [place] [id number] [place] [id number] Sep, Sciatica M54.30 [place] [address] [place] [id number] [place] [phone] Sep, Acute pain of left shoulder M25.512 [facility] [address] [place] [id number] [address] [place] [id number] Sep, Acute pain of left shoulder M25.512 [place] [address] [address] Aug, Sciatica M54.30 [place] [address] [place] [id number] [place] [address] Aug, Sciatica M54.30 ; Tobacco ab use Z72.0 and Tobacco abuse counseling Z71.6 [facility] [address] [place] [id number] [address] [place] [address] Aug, Acute pain of left shoulder M25.512 [facility] [address] [place] [id number] [place] [address] Aug, Contusion of right shoulder, initial encounter S40.011A ; Acute pain of left shoulder M25.512 and Shortness of breath R06.02 [place] [address] [place] [id number] [address] [place] [address] Aug, Lumbago with sciatica, right side M54.41 [facility] [address] [facility] [id number] [address] [place] [address] July, [facility] [address] [facility] [id number] [address] [place] [address] July, Lumbago with sciatica, right side M54.41 [facility] [address] [facility] [id number] [address] [place] [address] Jun, Lumbago with sciatica, right side M54.41 [facility] [address] [facility] [id number] [address] [place] [address] May, Lumbago with sciatica, right side M54.41 [facility] [address] [facility] [id number] [address] [place] [id number] May, Herpes zoster without compli cation B02.9 [facility] [address] [facility] [id number] [address] [place] [address] May, Back pain M54.9 and Acute ri ght-sided low back pain with right-sided sciatica M54.41 [facility] [address] [facility] [id number] [address] [place] [address] Apr, [facility] [address] [place] [id number] [address] [place] [address] Apr, Lumbago with sciatica, right side M54.41 and Other chronic pain G89.29 [facility] [address] [facility] [id number] [address] [place] [address] Apr, [facility] [address] [place] [id number] [address] [place] [phone] Mar, [facility] [address] [facility] [id number] [address] [place] [id number] Mar, [facility] [address] [place] [id number] [address] [place] [id number] Feb, [facility] [address] [facility] [id number] [address] [place] [address] Jan, Urinary frequency R35.0 [facility] [address] [facility] [id number] [address] [place] [phone] Jan, [facility] [address] [facility] [id number] [address] [place] [phone] Dec, [facility] [address] [facility] [id number] [address] [place] [address] Oct, [facility] [address] [facility] [id number] [address] [place] [address] Sep, [facility] [address] [facility] [id number] [address] [place] [id number] Sep, Foreign body in left foot, i nitial encounter S90.852A [facility] [address] [place] [id number] [address] [place] [phone] Aug, [facility] [address] [place] [id number] [address] [place] [id number] July, Sciatica M54.30 [facility] [address] [place] [id number] [address] [place] [id number] Jun, [facility] [address] [place] [id number] [address] [place] [address] May, Osteoarthritis M19.90 [facility] [address] [facility] [id number] [address] [place] [id number] May, [facility] [address] [facility] [id number] [address] [place] [address] May, Pain in right hip M25.551 [facility] [address] [facility] [id number] [address] [place] [address] May, Tinea corporis B35.4 [facility] [address] [facility] [id number] [address] [place] [address] Apr, Pain in right hip M25.551 [facility] [address] [id number] [address] [place] [address] Mar, Pain in right hip M25.551 [facility] [address] [id number] [address] [place] [id number] Mar, [facility] [address] [id number] [address] [place] [address] Feb, Pain in right hip M25.551 [facility] [address] [id number] [address] [place] [id number] Jan, Acute bronchitis, unspecifie d organism J20.9 and Cough R05 [facility] [address] [id number] [address] [place] [id number] Jan, Pain in right hip M25.551 [facility] [address] [id number] [address] [place] [id number] Dec, Pain in right hip M25.551 [facility] [address] [id number] [address] [place] [id number] Nov, Acute bronchitis 466.0 [facility] [address] [id number] [address] [place] [id number] Nov, [facility] [address] [id number] [address] [place] [id number] Oct, [facility] [address] [id number] [address] [place] [id number] Sep, [facility] [address] [id number] [address] [place] [phone] Aug, [facility] [address] [id number] [address] [place] [phone] July, [facility] [address] [id number] [address] [place] [phone] Jun, [facility] [address] [id number] [address] [place] [address], [place] [address] 13 Jun, 2014 [facility] [address] [id number] [address] [place] [address], [place] [address] 18 May, 2014 [facility] [address] [id number] [address] [place] [address], [place] [address] 18 May, 2014 [facility] [address] [id number] [address] [place] [address], [place] [address] 17 Apr, 2014 [facility] [address] [id number] [address] [place] [address], [place] [address] Apr, 2014 [facility] [address] [id number] [address] [place] [address], [place] [address] Apr, 2014 [facility] [address] [id number] [address] [place] [address], [place] [address] Apr, 2014 [facility] [address] [id number] [address] [place] [address], [place] [address] Apr, 2014 [facility] [address] [id number] [address] [place] [address], [place] [address] 06 Apr, 2014 [facility] [address] [id number] [address] [place] [address], [place] [address] Mar, [facility] [address] [id number] [address] [place] [address], [place] [address] 16 Mar, 2014 [facility] [address] [id number] [address] [place] [address], [place] [address] Feb, [facility] [address] [id number] [address] [place] [phone] Feb, [facility] [address] [id number] [address] [place] [address], [place] [address] Feb, [facility] [address] [id number] [address] [place] [address], [place] [address] Dec, [facility] [address] [id number] [address] [place] [address], [place] [address] Dec, [facility] [address] [id number] [address] [place] [address], [place] [address] Nov, [facility] [address] [id number] [address] [place] [address], [place] [address] Nov, [facility] [address] [id number] [address] [place] [address], [place] [address] Nov, [facility] [address] [id number] [address] [place] [address], [place] [address] Nov, [facility] [address] [id number] [address] [place] [address], [place] [address] Sep, [facility] [address] [id number] [address] [place] [address], [place] [address] Sep, [facility] [address] [id number] [address] [place] [address], [place] [address] Sep, [facility] [address] [id number] [address] [place] [address], [place] [address] Sep, [facility] [address] [id number] [address] [place] [address], [place] [address] Aug, [facility] [address] [id number] [address] [place] [address], [place] [address] Aug, [facility] [address] [id number] [address] [place] [address], [place] [address] Aug, [facility] [address] [id number] [address] [place] [address], [place] [address] Aug, [facility] [address] [id number] [address] [place] [address], [place] [address] July, [facility] [address] [id number] [address] [place] [address], [place] [address] July, [facility] [address] [id number] [address] [place] [address], [place] [address] Jun, [facility] [address] [id number] [address] [place] [address], [place] [address] Jun, [facility] [address] [id number] [facility] [place] [address] Jun, [facility] [address] [id number] [address] [place] [address], [place] [address] Jun, [facility] [address] [id number] [address] [place] [address], [place] [address] Jun, [facility] [address] [id number] [address] [place] [address], [place] [address] Jun, [facility] [address] [id number] [address] [place] [address], [place] [address] Jun, [facility] [address] [id number] [address] [place] [address], [place] [address] Jun, [facility] [address] [id number] [address] [place] [address], [place] [address] May, [facility] [address] [id number] [address] [place] [address], [place] [address] May, [facility] [address] [id number] [address] [place] [address], [place] [address] May, [facility] [address] [id number] [address] [place] [address], [place] [address] May, [facility] [address] [id number] [address] [place] [address], [place] [address] May, [facility] [address] [id number] [address] [place] [address], [place] [address] May, [facility] [address] [id number] [address] [place] [address], [place] [address] Apr, [facility] [address] [id number] [address] [place] [address], [place] [address] Apr, [facility] [address] [id number] [address] [place] [address], [place] [address] Apr, [facility] [address] [id number] [address] [place] [address], [place] [address] Apr, [facility] [address] [id number] [address] [place] [address], [place] [address] Mar, [facility] [address] [id number] [address] [place] [address], [place] [address] Mar, [facility] [address] [id number] [address] [place] [address], [place] [address] Mar, [facility] [address] [id number] [address] [place] [address], [place] [address] Mar, [facility] [address] [id number] [address] [place] [address], [place] [address] Mar, [facility] [address] [id number] [address] [place] [address], [place] [address] Mar, [facility] [address] [id number] [address] [place] [address], [place] [address] Feb, [facility] [address] [id number] [address] [place] [address], [place] [address] Feb, [facility] [address] [id number] [address] [place] [address], [place] [address] Feb, [facility] [address] [id number] [address] [place] [address], [place] [address] Feb, [facility] [address] [id number] [address] [place] [address], [place] [address] Feb, [facility] [address] [id number] [address] [place] [address], [place] [address] Feb, [facility] [address] [id number] [address] [place] [address], [place] [address] Feb, [facility] [address] [id number] [address] [place] [address], [place] [address] Feb, [facility] [address] [id number] [address] [place] [phone] Feb, [facility] [address] [id number] [address] [place] [address], [place] [address] Feb, [facility] [address] [id number] [address] [place] [address] Feb, [facility] [address] [id number] [address] [place] [address], [place] [address] Feb, [facility] [address] [id number] [address] [place] [address] Jan, [facility] [address] [id number] [address] [place] [address], [place] [address] Jan, [facility] [address] [id number] [address] [place] [address] Jan, [facility] [address] [id number] [address] [place] [address] Jan, [facility] [address] [id number] [address] [place] [address] Jan, [facility] [address] [id number] [address] [place] [address] Jan, [facility] [address] [id number] [address] [place] [address] Jan, [facility] [address] [id number] [address] [place] [address] Jan, [facility] [address] [id number] [address] [place] [address] Jan, [facility] [address] [id number] [address] [place] [address] Jan, [facility] [address] [id number] [address] [place] [address] Dec, [facility] [address] [id number] [address] [place] [address] Dec, [facility] [address] [id number] [address] [place] [address], [place] [address] Nov, 2012 [facility] [address] [id number] [address] [place] [address], [place] [address] Nov, 2012 [facility] [address] [id number] [address] [place] [address], [place] [address] Nov, 2012 [facility] [address] [id number] [address] [place] [address], [place] [address] 05 Nov, 2012 [facility] [address] [id number] [address] [place] [address], [place] [address] Nov, 2012 [facility] [address] [id number] [address] [place] [address], [place] [address] Oct, [facility] [address] [id number] [address] [place] [address], [place] [address] Oct, [facility] [address] [id number] [address] [place] [address], [place] [address] Oct, [facility] [address] [id number] [address] [place] [address], [place] [address] Oct, [facility] [address] [id number] [address] [place] [address], [place] [address] Oct, [facility] [address] [id number] [address] [place] [address], [place] [address] Sep, [facility] [address] [id number] [address] [place] [address], [place] [address] Sep, [facility] [address] [id number] [address] [place] [address], [place] [address] Sep, [facility] [address] [id number] [address] [place] [address], [place] [address] Sep, [facility] [address] [id number] [address] [place] [address], [place] [address] Sep, [facility] [address] [id number] [address] [place] [address], [place] [address] Sep, [facility] [address] [id number] [address] [place] [address], [place] [address] Aug, [facility] [address] [id number] [address] [place] [address], [place] [address] Aug, [facility] [address] [id number] [address] [place] [address], [place] [address] July, [facility] [address] [id number] [address] [place] [address], [place] [address] July, [facility] [address] [id number] [address] [place] [address], [place] [address] July, [facility] [address] [id number] [address] [place] [address], [place] [address] Jun, [facility] [address] [id number] [address] [place] [address], [place] [address] Jun, [facility] [address] [id number] [address] [place] [address], [place] [address] Jun, [facility] [address] [id number] [address] [place] [address], [place] [address] Jun, [facility] [address] [id number] [address] [place] [address], [place] [address] May, [facility] [address] [id number] [address] [place] [address], [place] [address] May, [facility] [address] [id number] [address] [place] [address], [place] [address] Apr, [facility] [address] [id number] [address] [place] [address], [place] [address] Apr, [facility] [address] [id number] [address] [place] [address], [place] [address] Apr, [facility] [address] [id number] [address] [place] [address], [place] [address] Apr, [facility] [address] [id number] [address] [place] [address], [place] [address] Apr, [facility] [address] [id number] [address] [place] [address], [place] [address] Apr, [facility] [address] [id number] [address] [place] [address], [place] [id number] Apr, [facility] [address] [id number] [address] [place] [address], [place] [address] Apr, [facility] [address] [id number] [address] [place] [address], [place] [address] Mar, [facility] [address] [id number] [address] [place] [address], [place] [address] Mar, [facility] [address] [id number] [address] [place] [address], [place] [address] Mar, [facility] [address] [id number] [address] [place] [address], [place] [address] Mar, [facility] [address] [id number] [address] [place] [address], [place] [address] Jan, [facility] [address] [id number] [address] [place] [address], [place] [address] Jan, [facility] [address] [id number] [address] [place] [address], [place] [address] Jan, [facility] [address] [id number] [address] [place] [address], [place] [address] Jan, [facility] [address] [id number] [address] [place] [address], [place] [address] Jan, [facility] [address] [id number] [address] [place] [address], [place] [address] Dec, [facility] [address] [id number] [address] [place] [address], [place] [address] Dec, [facility] [address] [id number] [address] [place] [address], [place] [address] Dec, [facility] [address] [id number] [address] [place] [address], [place] [address] Dec, [facility] [address] [id number] [address] [place] [address], [place] [address] Nov, [facility] [address] [id number] [address] [place] [address], [place] [address] Oct, [facility] [address] [id number] [address] [place] [address], [place] [address] Oct, [facility] [address] [id number] [address] [place] [address], [place] [address] Oct, [facility] [address] [id number] [address] [place] [address], [place] [address] Oct, [facility] [address] [id number] [address] [place] [address], [place] [address] Oct, [facility] [address] [id number] [address] [place] [address], [place] [address] Sep, [facility] [address] [id number] [address] [place] [address], [place] [address] Sep, [facility] [address] [id number] [address] [place] [address], [place] [address] Aug, [facility] [address] [id number] [address] [place] [address], [place] [address] Aug, [facility] [address] [id number] [address] [place] [address], [place] [address] Aug, [facility] [address] [id number] [address] [place] [address], [place] [address] Aug, [facility] [address] [id number] [address] [place] [address], [place] [address] July, [facility] [facility] [address] [id number] [address] [place] [address], [place] [address] Jun, [facility] [address] [id number] [address] [place] [id number] 28 May, 2011 [facility] [address] [id number] [address] [place] [address], [place] [id number] 27 May, 2011 [facility] [address] [id number] [address] [place] [address], [place] [address] 12 May, 2011 [facility] [address] [id number] [address] [place] [address], [place] [address] 30 Mar, 2011 [facility] [address] [id number] [address] [place] [address], [place] [address] Feb, [facility] [address] [id number] [address] [place] [address], [place] [address] Feb, [facility] [address] [id number] [address] [place] [address], [place] [address] Jan, [facility] [address] [id number] [address] [place] [address], [place] [address] Jan, [facility] [address] [id number] [address] [place] [address], [place] [address] Jan, [facility] [address] [id number] [address] [place] [address], [place] [address] Jan, [facility] [address] [id number] [address] [place] [address], [place] [address] 30 Jan, 2010 [facility] [address] [id number] [address] [place] [address], [place] [address] 20 Dec, 2009 [facility] [address] [id number] [address] [place] [address], [place] [address] Dec, [facility] [address] [id number] [address] [place] [address], [place] [address] Dec, [facility] [address] [id number] [address] [place] [address], [place] [address] 18 May, 2009 [facility] [address] [id number] [address] [place] [address], [place] [address] 15 May, 2009 [facility] [address] [facility] [id number] [address] [place] [id number] 17 Apr, 2009 [facility] [address] [facility] [id number] [address] [place] [phone] Jan, [facility] [address] [facility] [id number] [address] [place] [id number] 11 Apr, 2008 IMMUNIZATIONS No Known Immunizations SOCIAL HISTORY Never Assessed REASON FOR VISIT PLAN OF CARE VITAL SIGNS MEDICATIONS Unknown Medications RESULTS No Results PROCEDURES Procedure Date Ordered Result Body Site CCP ANTIBODY Jan 22, 2013 RHEUMATOID FACTOR, QUANT Jan 22, 2013 NUCLEAR ANTIGEN ANTIBODY Jan 22, 2013 DNA ANTIBODY Jan 22, 2013 C-REACTIVE PROTEIN Jan 22, 2013 VENIPUNCT, ROUTINE* Jan 22, 2013 INSTRUCTIONS MEDICATIONS ADMINISTERED No Known Medications [...] for cancer Hospitalization History surgeries Hospitalization History [facility] ER, heart- kidney- Stayed a [facility] ICU 12/2017 Hospitalization History [facility] ER 03/2018 Hospitalization History [facility]- Stroke 2 weeks 06/2018 Hospitalization History ER 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
--- OUTSIDE RECORDS SUMMARY | 2019-10-19 08:23 | XMS REPORT ---
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 Name Role Phone COLLEEN WAYNE Unavailable PROBLEMS Type Condition ICD9-CM Code [id number] Code Onset Dates Condition S tatus SNOMED Code Problem Mixed hyperlipidemia E78.2 Active 150584573 Problem Anxiety F41.9 Active 79441349 Problem Other organ or system involvement in systemic julito pus erythematosus M32.19 Active 28886573 Problem Episode of recurrent major d epressive disorder, unspecified depression episode severity F33.9 Active 110936910 Problem Asymptomatic menopausal state Z78.0 Active 33181554 Problem Systemic lupus erythematosus , unspecified SLE type, unspecified organ involvement status M32.9 Active 22355545 Problem Right renal artery stenosis I70.1 Ac tive [id number] Problem Type 2 diabetes mellitus with foot ulcer E11.621 Active 393331726208878 Problem Lumbago with sciatica, right side M54.41 Active 068639373 Problem Non-pressure chronic ulcer o f other part of unspecified foot limited to breakdown of skin L97.501 Active 434086038 Problem Other chronic pain G89.29 Active 8 4008626 Problem Other chronic pain G89.29 Active 8 8063567 Problem Acute right-sided low back pain with right-sided sciatica M54.41 Active 438668677 Problem 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 625353081 Problem 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 10064640 Problem Frequent falls R29.6 Active 33131 2001 Problem HILARIO (obstructive sleep apnea) G47.33 Active 13938920 Problem Cerebrovascular accident (CV A) due to occlusion of other cerebral artery I63.59 Active 096965966 Problem Sciatica M54.30 Active 53376764 Problem Gangrene I96 Active 913923248 Problem Hepatitis C B19.20 Active 13162460 Problem Unsteady gait R26.81 Active 134177 008 Problem Seborrheic keratoses L82.1 Active 233488277 Problem Non-pressure chronic ulcer o f other part of unspecified foot limited to breakdown of skin L97.501 Active 878063133 Problem Urinary frequency R35.0 Active 16 3835591 Problem Necrosis I96 Active 651711812 Problem 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 Active 482692737 Problem Type 2 diabetes mellitus with foot ulcer E11.621 Active 339368855377435 Problem Arterial insufficiency of lower extremity I73.9 Active 273097258235332 Problem Ventricular tachycardia I47.2 Active 25388784 Problem Atherosclerosis of renal artery I70.1 Active 932991205439504 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 Active 650749287 Problem 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 Active 805342620 Problem Chronic anticoagulation Z79.01 Active 752823759 Problem Sialoadenitis, unspecified K11.20 Act gulshan 75614287 Problem Current moderate episode of major depressive disorder without prior episode F32.1 Active 39129824 Problem Body mass index (BMI) 29.0-29.9, adult Z68.29 Active 086012465 Problem Systolic congestive heart failure, unspecified HF chronici ty I50.20 Active 30144884 Problem Hypertension I10 Active 6297910 3 Problem Cardiomyopathy of undetermined type I42.9 Active 34644773 ALLERGIES No Information ENCOUNTERS Encounter Location Date Diagnosis [place] [address] [address] [facility] [id number] [address] [place] [phone] 08 Sep, 2019 [facility] [place] [address] [facility] [id number] [address] [place] [phone] Aug, Other chronic pain G89.29 [place] [address] [address] [place] [id number] [address] [place] [phone] Aug, [facility] [place] [address] [place] [id number] [address] [place] [phone] July, Other chronic pain G89.29 [place] [id number] [facility] [id number] [address] [place] [phone] 30 Jun, 2019 Other chronic pain G89.29 [facility] [place] [address] [facility] [id number] [address] [place] [phone] 14 Jun, 2019 Frequent headaches R51 [facility] [place] [address] [facility] [id number] [address] [place] [phone] 03 Jun, 2019 Systolic congestive heart fa ilure, unspecified HF chronicity I50.20 ; Type 2 diabetes mellitus with foot ulcer E11.621 and Coronary artery disease of [place] artery of [place] heart with stable angina pectoris I25.118 [facility] [place] [address] [facility] [id number] [address] [place] [phone] Jun, Other chronic pain G89.29 [place] [address] [address] [facility] [id number] [address] [place] [phone] 16 May, 2019 [place] [address] [place] [id number] [place] [phone] May, Other chronic pain G89.29 [facility] [place] [address] [facility] [id number] [address] [place] [phone] Apr, Atherosclerosis of renal art taurus I70.1 ; Cardiomyopathy of undetermined type I42.9 and Ventricular tachycardia I47.2 [facility] [place] [address] [facility] [id number] [address] [place] [phone] 14 Apr, 2019 [facility] [address] [facility] [id number] [address] [place] [phone] 11 Apr, 2019 Non-intractable vomiting wit h nausea, unspecified vomiting type R11.2 [facility] [place] [address] [facility] [id number] [address] [place] [phone] 03 Apr, 2019 Other chronic pain G89.29 [facility] [place] [address] [facility] [id number] [address] [place] [phone] Mar, Other chronic pain G89.29 [place] [address] [address] [facility] [id number] [address] [place] [phone] Feb, Renal insufficiency N28.9 [facility] [place] [address] [id number] [address] [place] [id number] Feb, [facility] [place] [address] [facility] [id number] [address] [place] [phone] Feb, Frequent headaches R51 and H ypertension I10 [facility] [place] [address] [facility] [id number] [address] [place] [phone] Feb, Other chronic pain G89.29 [facility] [place] [address] [facility] [id number] [address] [place] [phone] Jan, Encounter for Medicare annua l wellness [...] episode F32.1 and Encounter for immunization Z23 [facility] [place] [address] [facility] [id number] [address] [place] [phone] Jan, [facility] [place] [address] [facility] [id number] [address] [place] [phone] Jan, Other chronic pain G89.29 [facility] [place] [address] [facility] [id number] [address] [place] [phone] Dec, [facility] [place] [address] [facility] [id number] [address] [place] [phone] Dec, Hypokalemia E87.6 [place] [address] [address] [facility] [id number] [address] [place] [phone] 15 Dec, 2018 Nausea R11.0 [facility] [place] [address] [facility] [id number] [address] [place] [phone] 14 Dec, 2018 Other chronic pain G89.29 [facility] [place] [address] [facility] [id number] [address] [place] [phone] Dec, Systolic congestive heart fa ilure, unspecified HF chronicity I50.20 and Ventricular tachycardia I47.2 [facility] [place] [address] [place] [id number] [address] [place] [phone] Dec, [facility] [place] [address] [place] [id number] [address] [place] [phone] Nov, Other chronic pain G89.29 [place] [address] [place] [phone] Nov, Nausea with vomiting, unspec ified R11.2 [place] [address] [place] [id number] [place] [phone] Oct, [place] [address] [place] [id number] [place] [phone] Oct, Other chronic pain G89.29 [place] [address] [phone] Oct, [facility] [place] [address] [phone] Oct, Arterial insufficiency of lo wer extremity I73.9 and High risk medication use Z79.899 [facility] [address] [place] [id number] [address] [place] [phone] Oct, Type 2 diabetes mellitus wit h foot ulcer E11.621 and Non-pressure chronic ulcer of other part of unspecified foot limited to breakdown of skin L97.501 [facility] [address] [place] [id number] [address] [place] [phone] Oct, Gangrene I96 [facility] [place] [address] [place] [id number] [place] [phone] Sep, Other chronic pain G89.29 [facility] [place] [address] [place] [id number] [address] [place] [phone] Sep, Status post CVA Z86.73 ; Uns teady gait R26.81 and Frequent falls R29.6 [place] [address] [address] [facility] [id number] [address] [place] [phone] Sep, Nausea with vomiting, unspec ified R11.2 [place] [address] [address] [facility] [id number] [address] [place] [id number] Sep, Other chronic pain G89.29 [place] [address] [address] [facility] [id number] [address] [place] [phone] Aug, [place] [address] [address] [facility] [id number] [address] [place] [phone] Aug, Other chronic pain G89.29 [place] [address] [address] [facility] [id number] [address] [place] [id number] July, 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 and Cerebrovascular accident (CVA) due to occlusion of other cerebral artery I63.59 [place] [address] [address] [facility] [id number] [address] [place] [phone] July, Renal insufficiency N28.9 [place] [address] [address] [facility] [id number] [address] [place] [phone] July, Cerebrovascular accident (CV A) due to occlusion of other cerebral artery I63.59 and Unexplained weight loss R63.4 [place] [address] [address] [facility] [id number] [address] [place] [phone] July, [place] [address] [address] [facility] [id number] [address] [place] [phone] July, [place] [address] [address] [facility] [id number] [address] [place] [phone] July, Unexplained weight loss R63. 4 and [facility] current use of anticoagulant Z79.01 [place] [address] [address] [facility] [id number] [address] [place] [phone] July, Other chronic pain G89.29 [place] [address] [address] [facility] [id number] [address] [place] [phone] Jun, Other chronic pain G89.29 [facility] [place] [address] [id number] [address] [place] [phone] May, Unexplained weight loss R63. 4 [facility] [place] [address] [facility] [id number] [address] [place] [phone] May, Nausea with vomiting, unspec ified R11.2 [facility] [place] [address] [facility] [id number] [address] [place] [phone] May, Non-recurrent acute suppurat gulshan otitis media of right ear without spontaneous rupture of tympanic membrane H66.001 and Chronic anticoagulation Z79.01 [facility] [place] [address] [facility] [id number] [address] [place] [phone] May, Other chronic pain G89.29 [facility] [address] [facility] [id number] [address] [place] [phone] Apr, Skin tear of right forearm w ithout complication, initial encounter S51.811A ; Skin tear of left forearm without complication, initial encounter S51.812A and Encounter for immunization Z23 [facility] [place] [address] [facility] [id number] [address] [place] [phone] Apr, [facility] [place] [address] [facility] [id number] [address] [place] [phone] Apr, Diarrhea, unspecified R19.7 ; Nausea with vomiting, unspecified R11.2 and 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 [facility] [place] [address] [facility] [id number] [address] [place] [phone] Apr, Other chronic pain G89.29 [facility] [place] [address] [facility] [id number] [address] [place] [phone] Mar, Other chronic pain G89.29 [facility] [place] [address] [facility] [id number] [address] [place] [phone] Mar, Other chronic pain G89.29 [facility] [place] [address] [id number] [address] [place] [phone] 08 Mar, 2018 [facility] [place] [address] [id number] [address] [place] [phone] Mar, Other organ or system involv ement in systemic lupus erythematosus M32.19 [facility] [place] [address] [id number] [address] [place] [phone] Mar, Non-recurrent acute suppurat gulshan otitis media of right ear without spontaneous rupture of tympanic membrane H66.001 and Chronic anticoagulation Z79.01 [facility] [address] [id number] [address] [place] [phone] Feb, Sialoadenitis, unspecified K 11.20 [facility] [place] [address] [id number] [address] [place] [phone] Feb, Other chronic pain G89.29 [facility] [place] [address] [id number] [address] [place] [phone] Jan, [facility] current use of ant icoagulant therapy Z79.01 [facility] [place] [address] [id number] [address] [place] [phone] Jan, Other chronic pain G89.29 ; Lumbago with sciatica, right side M54.41 ; Other chronic pain G89.29 ; Tobacco abuse Z72.0 ; Tobacco abuse counseling Z71.6 ; Mixed hyperlipidemia E78.2 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 [facility] [place] [address] [id number] [address] [place] [phone] Jan, [facility] [place] [address] [id number] [address] [place] [phone] Dec, [facility] [place] [address] [id number] [address] [place] [phone] Dec, [facility] [place] [address] [id number] [address] [place] [phone] Dec, [facility] [place] [address] [facility] [id number] [address] [place] [phone] Dec, Mixed hyperlipidemia E78.2 ; Other chronic [...] in systemic lupus erythematosus M32.19 [facility] [employer] [address] [place] [id number] Dec, Right renal artery stenosis I70.1 ; Othe r organ or system involvement in systemic lupus erythematosus M32.19 ; Hepatitis C B19.20 ; Tobacco abuse Z72.0 and Weakness R53.1 [facility] [address] [place] [id number] Dec, [facility] [place] [address] [facility] [id number] [address] [place] [id number] Dec, [facility] [place] [address] [facility] [id number] [address] [place] [phone] Dec, Other organ or system involv ement in systemic lupus erythematosus M32.19 [facility] [email or web address] [address] [place] [id number] Dec, Right renal artery stenosis I70.1 ; Inju ry of right kidney, sequela S37.001S ; Tobacco abuse Z72.0 ; Systemic lupus erythematosus, unspecified SLE type, unspecified organ involvement status M32.9 ; Hepatitis C B19.20 and Candidiasis of female genitalia B37.3 [facility] [place] [address] [facility] [id number] [address] [place] [id number] 05 Dec, 2017 Other organ or system involv ement in systemic lupus erythematosus M32.19 [facility] [place] [address] [facility] [id number] [address] [place] [phone] Dec, Other organ or system involv ement in systemic lupus erythematosus M32.19 [facility] [place] [address] [id number] [address] [place] [phone] Dec, [facility] [place] [address] [id number] [address] [place] [phone] Nov, Other organ or system involv ement in systemic lupus erythematosus M32.19 [facility] [place] [address] [id number] [address] [place] [id number] Oct, Other organ or system involv ement in systemic lupus erythematosus M32.19 [facility] [place] [address] [id number] [address] [place] [phone] Sep, Other organ or system involv ement in systemic lupus erythematosus M32.19 [facility] [place] [address] [id number] [address] [place] [phone] Aug, Anxiety F41.9 [facility] [place] [address] [id number] [address] [place] [phone] Aug, Other organ or system involv ement in systemic lupus erythematosus M32.19 [facility] [place] [address] [id number] [address] [place] [phone] July, Medicare annual wellness vis it, initial Z00.00 ; Anxiety F41.9 ; HILARIO (obstructive sleep apnea) G47.33 ; Hepatitis C B19.20 ; Other chronic pain G89.29 ; Asymptomatic menopausal state Z78.0 and Episode of recurrent major depressive disorder, unspecified depression episode severity F33.9 [facility] [place] [address] [id number] [address] [place] [id number] July, Anxiety F41.9 [facility] [place] [address] [id number] [address] [place] [phone] July, Other organ or system involv ement in systemic lupus erythematosus M32.19 [facility] [place] [address] [id number] [address] [place] [phone] July, [facility] [place] [address] [id number] [address] [place] [phone] Jun, Other organ or system involv ement in systemic lupus erythematosus M32.19 ; BMI 40.0-44.9, adult Z68.41 ; Other chronic pain G89.29 and Controlled substance agreement signed Z79.899 [facility] [place] [address] [facility] [id number] [address] [place] [phone] 08 May, 2017 Sciatica M54.30 [facility] [place] [address] [id number] [address] [place] [phone] Apr, Sciatica M54.30 [facility] [place] [address] [facility] [id number] [address] [place] [id number] Mar, Sciatica M54.30 [facility] [place] [address] [facility] [id number] [address] [place] [phone] Feb, Sciatica M54.30 [place] [address] [address] [facility] [id number] [address] [place] [phone] 15 Jan, 2017 Sciatica M54.30 [place] [address] [address] [facility] [id number] [address] [place] [id number] 14 Jan, 2017 Sciatica M54.30 [place] [address] [address] [facility] [id number] [address] [place] [phone] Dec, Sciatica M54.30 [place] [address] [address] [facility] [id number] [address] [place] [id number] 18 Dec, 2016 Sciatica M54.30 [facility] [place] [address] [facility] [id number] [address] [place] [phone] 29 Nov, 2016 Mixed hyperlipidemia E78.2 ; Chronic seasonal allergic rhinitis due to other allergen J30.2 and Family history of early CAD Z82.49 [facility], [place], [facility] [address] [facility] [id number] [address] [place] [phone] Nov, Sciatica M54.30 [facility] [place], [facility] [address] [facility] [id number] [address] [place] [phone] 18 Nov, 2016 Mixed hyperlipidemia E78.2 ; Chronic seasonal allergic rhinitis due to other allergen J30.2 ; Family history of early CAD Z82.49 ; Other chronic pain G89.29 and Pain in left shoulder M25.512 [facility] [place], [facility] [address] [facility] [id number] [address] [place] [phone] Nov, Acute pain of left shoulder M25.512 [facility], [place], [facility] [address] [facility] [id number] [address] [place] [phone] Oct, Sciatica M54.30 [place] [address] [facility] [id number] [address] [place] [phone] Oct, [place] [address] [address] [place] [id number] [place], [place] [phone] Sep, Sciatica M54.30 [place] [address] [place] [id number] [place] [phone] Sep, Acute pain of left shoulder M25.512 [facility] [place] [address] [id number] [address] [place] [phone] Sep, Acute pain of left shoulder M25.512 [place] [address] [address] Aug, Sciatica M54.30 [place] [address] [place] [id number] [place] [phone] Aug, Sciatica M54.30 ; Tobacco ab use Z72.0 and Tobacco abuse counseling Z71.6 [facility] [place] [address] [id number] [address] [place] [phone] Aug, Acute pain of left shoulder M25.512 [facility] [id number] [place] [address] Aug, Contusion of right shoulder, initial encounter S40.011A ; Acute pain of left shoulder M25.512 and Shortness of breath R06.02 [place] [address] [place] [id number] [address] [place] [phone] Aug, Lumbago with sciatica, right side M54.41 [facility] [place] [address] [facility] [id number] [address] [place] [phone] July, [facility] [place] [address] [facility] [id number] [address] [place] [id number] July, Lumbago with sciatica, right side M54.41 [facility] [place] [address] [facility] [id number] [address] [place] [phone] Jun, Lumbago with sciatica, right side M54.41 [facility] [place] [address] [facility] [id number] [address] [place] [phone] May, Lumbago with sciatica, right side M54.41 [facility] [address] [facility] [id number] [address] [place] [phone] May, Herpes zoster without compli cation B02.9 [facility] [address] [facility] [id number] [address] [place] [phone] May, Back pain M54.9 and Acute ri ght-sided low back pain with right-sided sciatica M54.41 [facility] [place] [address] [facility] [id number] [address] [place] [phone] Apr, [facility] [place] [address] [address] [id number] [address] [place] [phone] Apr, Lumbago with sciatica, right side M54.41 and Other chronic pain G89.29 [facility] [place] [address] [facility] [id number] [address] [place] [phone] Apr, [facility] [place] [address] [id number] [address] [place] [phone] Mar, [facility] [place] [address] [facility] [id number] [address] [place] [phone] Mar, [facility] [place] [address] [id number] [address] [place] [phone] Feb, [facility] [address] [facility] [id number] [address] [place] [phone] Jan, Urinary frequency R35.0 [facility] [place] [address] [facility] [id number] [address] [place] [phone] Jan, [facility] [place] [address] [facility] [id number] [address] [place] [id number] Dec, [facility] [place] [address] [facility] [id number] [address] [place] [phone] Oct, [facility] [place] [address] [facility] [id number] [address] [place] [phone] Sep, [facility] [address] [facility] [id number] [address] [place] [phone] Sep, Foreign body in left foot, i nitial encounter S90.852A [facility] [place] [address] [place] [id number] [address] [place] [phone] Aug, [facility] [place] [address] [address] [id number] [address] [place] [phone] July, Sciatica M54.30 [facility] [place] [address] [id number] [address] [place] [phone] Jun, [facility] [place] [address] [id number] [address] [place] [phone] May, Osteoarthritis M19.90 [facility] [place] [address] [facility] [id number] [address] [place] [phone] May, [facility] [place] [address] [facility] [id number] [address] [place] [id number] May, Pain in right hip M25.551 [facility] [address] [facility] [id number] [address] [place] [phone] May, Tinea corporis B35.4 [facility] [place] [address] [facility] [id number] [address] [place] [phone] Apr, Pain in right hip M25.551 [facility] [place] [address] [id number] [address] [place] [phone] Mar, Pain in right hip M25.551 [facility] [place] [address] [id number] [address] [place] [phone] Mar, [facility] [place] [address] [id number] [address] [place] [phone] Feb, Pain in right hip M25.551 [facility] [place] [address] [id number] [address] [place] [phone] Jan, Acute bronchitis, unspecifie d organism J20.9 and Cough R05 [facility] [place] [address] [id number] [address] [place] [phone] Jan, Pain in right hip M25.551 [facility] [place] [address] [id number] [address] [place] [phone] Dec, Pain in right hip M25.551 [facility] [place] [address] [id number] [address] [place] [phone] Nov, Acute bronchitis 466.0 [facility] [place] [address] [id number] [address] [place] [phone] Nov, [facility] [place] [address] [id number] [address] [place] [phone] Oct, [facility] [place] [address] [id number] [address] [place] [phone] Sep, [facility] [place] [address] [id number] [address] [place] [phone] Aug, [facility] [place] [address] [id number] [address] [place] [phone] July, [facility] [place] [address] [id number] [address] [place] [phone] Jun, [facility] [place] [address] [id number] [address] [place] [address], [place] [phone] 13 Jun, 2014 [facility] [address] [id number] [address] [place] [address], [place] [id number] 18 May, 2014 [facility] [address] [id number] [address] [place] [address], [place] [phone] 18 May, 2014 [facility] [address] [id number] [address] [place] [address], [place] [phone] 17 Apr, 2014 [facility] [address] [id number] [address] [place] [address], [place] [address] Apr, 2014 [facility] [address] [id number] [address] [place] [address], [place] [phone] Apr, 2014 [facility] [address] [id number] [address] [place] [address], [place] [address] Apr, 2014 [facility] [address] [id number] [address] [place] [address], [place] [address] Apr, 2014 [facility] [address] [id number] [address] [place] [address], [place] [id number] 06 Apr, 2014 [facility] [address] [id number] [address] [place] [address], [place] [address] Mar, [facility] [address] [id number] [address] [place] [address], [place] [address] 16 Mar, 2014 [facility] [address] [id number] [address] [place] [address], [place] [address] Feb, [facility] [address] [id number] [address] [place] [phone] Feb, [facility] [address] [id number] [address] [place] [address], [place] [address] Feb, [facility] [address] [id number] [address] [place] [address], [place] [address] Dec, [facility] [address] [id number] [address] [place] [address], [place] [address] Dec, [facility] [address] [id number] [address] [place] [address], [place] [address] Nov, [facility] [address] [id number] [address] [place] [address], [place] [address] Nov, [facility] [address] [id number] [address] [place] [address], [place] [address] Nov, [facility] [address] [id number] [address] [place] [address], [place] [address] Nov, [facility] [address] [id number] [address] [place] [address], [place] [address] Sep, [facility] [address] [id number] [address] [place] [address], [place] [address] Sep, [facility] [address] [id number] [address] [place] [address], [place] [address] Sep, [facility] [address] [id number] [address] [place] [address], [place] [address] Sep, [facility] [address] [id number] [address] [place] [address], [place] [address] Aug, [facility] [address] [id number] [address] [place] [address], [place] [address] Aug, [facility] [address] [id number] [address] [place] [address], [place] [address] Aug, [facility] [address] [id number] [address] [place] [address], [place] [address] Aug, [facility] [address] [id number] [address] [place] [address], [place] [address] July, [facility] [address] [id number] [address] [place] [address], [place] [address] July, [facility] [address] [id number] [address] [place] [address], [place] [address] Jun, [facility] [address] [id number] [address] [place] [address], [place] [address] Jun, [facility] [address] [id number] [facility] [address] Jun, [facility] [address] [id number] [address] [place] [address], [place] [address] Jun, [facility] [address] [id number] [address] [place] [address], [place] [address] Jun, [facility] [address] [id number] [address] [place] [address], [place] [address] Jun, [facility] [address] [id number] [address] [place] [address], [place] [address] Jun, [facility] [address] [id number] [address] [place] [address], [place] [address] Jun, [facility] [address] [id number] [address] [place] [address], [place] [address] May, [facility] [address] [id number] [address] [place] [address], [place] [address] May, [facility] [address] [id number] [address] [place] [address], [place] [address] May, [facility] [address] [id number] [address] [place] [address], [place] [address] May, [facility] [address] [id number] [address] [place] [address], [place] [address] May, [facility] [address] [id number] [address] [place] [address], [place] [address] May, [facility] [address] [id number] [address] [place] [address], [place] [address] Apr, [facility] [address] [id number] [address] [place] [address], [place] [address] Apr, [facility] [address] [id number] [address] [place] [address], [place] [address] Apr, [facility] [address] [id number] [address] [place] [address], [place] [address] Apr, [facility] [address] [id number] [address] [place] [address], [place] [address] Mar, [facility] [address] [id number] [address] [place] [address], [place] [address] Mar, [facility] [address] [id number] [address] [place] [address], [place] [address] Mar, [facility] [address] [id number] [address] [place] [address], [place] [address] Mar, [facility] [address] [id number] [address] [place] [address], [place] [address] Mar, [facility] [address] [id number] [address] [place] [address], [place] [address] Mar, [facility] [address] [id number] [address] [place] [address], [place] [address] Feb, [facility] [address] [id number] [address] [place] [address], [place] [address] Feb, [facility] [address] [id number] [address] [place] [address], [place] [address] Feb, [facility] [address] [id number] [address] [place] [address], [place] [address] Feb, [facility] [address] [id number] [address] [place] [address], [place] [address] Feb, [facility] [address] [id number] [address] [place] [address], [place] [address] Feb, [facility] [address] [id number] [address] [place] [address], [place] [address] Feb, [facility] [address] [id number] [address] [place] [address], [place] [address] Feb, [facility] [address] [id number] [address] [place] [phone] Feb, [facility] [address] [id number] [address] [place] [address], [place] [address] Feb, [facility] [address] [id number] [address] [place] [phone] Feb, [facility] [address] [id number] [address] [place] [address], [place] [address] Feb, [facility] [address] [id number] [address] [place] [id number] Jan, [facility] [address] [id number] [address] [place] [address], [place] [address] Jan, [facility] [address] [id number] [address] [place] [phone] Jan, [facility] [address] [id number] [address] [place] [phone] Jan, [facility] [address] [id number] [address] [place] [id number] Jan, [facility] [address] [id number] [address] [place] [phone] Jan, [facility] [address] [id number] [address] [place] [phone] Jan, [facility] [address] [id number] [address] [place] [phone] Jan, [facility] [address] [id number] [address] [place] [phone] Jan, [facility] [address] [id number] [address] [place] [phone] Jan, [facility] [address] [id number] [address] [place] [phone] Dec, [facility] [address] [id number] [address] [place] [phone] Dec, [facility] [address] [id number] [address] [place] [address], [place] [address] Nov, 2012 [facility] [address] [id number] [address] [place] [address], [place] [address] Nov, 2012 [facility] [address] [id number] [address] [place] [address], [place] [address] Nov, 2012 [facility] [address] [id number] [address] [place] [address], [place] [address] 05 Nov, 2012 [facility] [address] [id number] [address] [place] [address], [place] [address] Nov, 2012 [facility] [address] [id number] [address] [place] [address], [place] [address] Oct, [facility] [address] [id number] [address] [place] [address], [place] [address] Oct, [facility] [address] [id number] [address] [place] [address], [place] [address] Oct, [facility] [address] [id number] [address] [place] [address], [place] [address] Oct, [facility] [address] [id number] [address] [place] [address], [place] [address] Oct, [facility] [address] [id number] [address] [place] [address], [place] [address] Sep, [facility] [address] [id number] [address] [place] [address], [place] [address] Sep, [facility] [address] [id number] [address] [place] [address], [place] [address] Sep, [facility] [address] [id number] [address] [place] [address], [place] [address] Sep, [facility] [address] [id number] [address] [place] [address], [place] [address] Sep, [facility] [address] [id number] [address] [place] [address], [place] [address] Sep, [facility] [address] [id number] [address] [place] [address], [place] [address] Aug, [facility] [address] [id number] [address] [place] [address], [place] [address] Aug, [facility] [address] [id number] [address] [place] [address], [place] [address] July, [facility] [address] [id number] [address] [place] [address], [place] [address] July, [facility] [address] [id number] [address] [place] [address], [place] [address] July, [facility] [address] [id number] [address] [place] [address], [place] [address] Jun, [facility] [address] [id number] [address] [place] [address], [place] [address] Jun, [facility] [address] [id number] [address] [place] [address], [place] [address] Jun, [facility] [address] [id number] [address] [place] [address], [place] [address] Jun, [facility] [address] [id number] [address] [place] [address], [place] [address] May, [facility] [address] [id number] [address] [place] [address], [place] [address] May, [facility] [address] [id number] [address] [place] [address], [place] [address] Apr, [facility] [address] [id number] [address] [place] [address], [place] [address] Apr, [facility] [address] [id number] [address] [place] [address], [place] [address] Apr, [facility] [address] [id number] [address] [place] [address], [place] [address] Apr, [facility] [address] [id number] [address] [place] [address], [place] [address] Apr, [facility] [address] [id number] [address] [place] [address], [place] [address] Apr, [facility] [address] [id number] [address] [place] [address], [place] [id number] Apr, [facility] [address] [id number] [address] [place] [address], [place] [address] Apr, [facility] [address] [id number] [address] [place] [address], [place] [address] Mar, [facility] [address] [id number] [address] [place] [address], [place] [address] Mar, [facility] [address] [id number] [address] [place] [address], [place] [address] Mar, [facility] [address] [id number] [address] [place] [address], [place] [address] Mar, [facility] [address] [id number] [address] [place] [address], [place] [address] Jan, [facility] [address] [id number] [address] [place] [address], [place] [address] Jan, [facility] [address] [id number] [address] [place] [address], [place] [address] Jan, [facility] [address] [id number] [address] [place] [address], [place] [address] Jan, [facility] [address] [id number] [address] [place] [address], [place] [address] Jan, [facility] [address] [id number] [address] [place] [address], [place] [address] Dec, [facility] [address] [id number] [address] [place] [address], [place] [address] Dec, [facility] [address] [id number] [address] [place] [address], [place] [address] Dec, [facility] [address] [id number] [address] [place] [address], [place] [address] Dec, [facility] [address] [id number] [address] [place] [address], [place] [address] Nov, [facility] [address] [id number] [address] [place] [address], [place] [address] Oct, [facility] [address] [id number] [address] [place] [address], [place] [address] Oct, [facility] [address] [id number] [address] [place] [address], [place] [address] Oct, [facility] [address] [id number] [address] [place] [address], [place] [address] Oct, [facility] [address] [id number] [address] [place] [address], [place] [address] Oct, [facility] [address] [id number] [address] [place] [address], [place] [address] Sep, [facility] [address] [id number] [address] [place] [address], [place] [address] Sep, [facility] [address] [id number] [address] [place] [address], [place] [address] Aug, [facility] [address] [id number] [address] [place] [address], [place] [address] Aug, [facility] [address] [id number] [address] [place] [address], [place] [address] Aug, [facility] [address] [id number] [address] [place] [address], [place] [address] Aug, [facility] [address] [id number] [address] [place] [address], [place] [id number] July, [facility] [address] [id number] [address] [place] [address], [place] [id number] Jun, [facility] [address] [id number] [address] [place] [id number] 28 May, 2011 [facility] [address] [id number] [address] [place] [address], [place] [id number] 27 May, 2011 [facility] [address] [id number] [address] [place] [address], [place] [id number] 12 May, 2011 [facility] [address] [id number] [address] [place] [address], [place] [id number] 30 Mar, 2011 [facility] [address] [id number] [address] [place] [address], [place] [id number] Feb, [facility] [address] [id number] [address] [place] [address], [place] [id number] Feb, [facility] [address] [id number] [address] [place] [address], [place] [id number] Jan, [facility] [address] [id number] [address] [place] [address], [place] [id number] Jan, [facility] [address] [id number] [address] [place] [address], [place] [id number] Jan, [facility] [address] [id number] [address] [place] [address], [place] [id number] Jan, [facility] [address] [id number] [address] [place] [address], [place] [id number] 30 Jan, 2010 [facility] [address] [id number] [address] [place] [address], [place] [id number] 20 Dec, 2009 [facility] [address] [id number] [address] [place] [address], [place] [address] Dec, [facility] [address] [id number] [address] [place] [address], [place] [address] Dec, [facility] [address] [id number] [address] [place] [address], [place] [address] 18 May, 2009 [facility] [address] [id number] [address] [place] [address], [place] [id number] 15 May, 2009 [facility] [address] [facility] [id number] [address] [place] [id number] 17 Apr, 2009 [facility] [place] [address] [facility] [id number] [address] [place] [phone] Jan, [facility] [place] [address] [facility] [id number] [address] [place] [phone] Apr, IMMUNIZATIONS No Known Immunizations SOCIAL HISTORY Never Assessed REASON FOR VISIT PLAN OF CARE VITAL SIGNS Height 62 in 2012-09-21 Weight 221.7 lbs 2012-09-21 Temperature 96.8 degrees Fahrenheit 2012-09-21 Heart Rate 112 bpm 2012-09-21 Respiratory Rate 18 2012-09-21 Blood pressure systolic 140 mmHg 2012-09-21 Blood pressure diastolic 84 mmHg 2012-09-21 MEDICATIONS Unknown Medications RESULTS No Results PROCEDURES Procedure Date Ordered Result Body Site URINE CULTURE/COLONY COUNT September 21, 2012 URINALYSIS, AUTO, W/O SCOPE September 21, 2012 INSTRUCTIONS MEDICATIONS ADMINISTERED No Known Medications MEDICAL [...] for cancer Hospitalization History surgeries Hospitalization History [facility] ER, heart- kidney- Stayed a t [facility] ICU 12/2017 Hospitalization History [facility] ER 03/2018 Hospitalization History [facility]- Stroke 2 weeks 06/2018 Hospitalization History ER 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
--- OUTSIDE RECORDS SUMMARY | 2019-10-19 08:23 | XMS REPORT ---
Author Author Luanne CRUZ 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 Name Role Phone ANTHONY HERNAN Unavailable PROBLEMS Type Condition ICD9-CM Code QAU16-IY Code Onset Dates Condition S tatus SNOMED Code Problem Mixed hyperlipidemia E78.2 Active 610925681 Problem Anxiety F41.9 Active 40017831 Problem Other organ or system involvement in systemic julito pus erythematosus M32.19 Active 38927257 Problem Episode of recurrent major d epressive disorder, unspecified depression episode severity F33.9 Active 763809669 Problem Asymptomatic menopausal state Z78.0 Active 63810231 Problem Systemic lupus erythematosus , unspecified SLE type, unspecified organ involvement status M32.9 Active 35416192 Problem Right renal artery stenosis I70.1 Ac tive [id number] Problem Type 2 diabetes mellitus with foot ulcer E11.621 Active 781753507499844 Problem Lumbago with sciatica, right side M54.41 Active 427955989 Problem Non-pressure chronic ulcer o f other part of unspecified foot limited to breakdown of skin L97.501 Active 278145835 Problem Other chronic pain G89.29 Active 8 6168225 Problem Other chronic pain G89.29 Active 8 3840578 Problem Acute right-sided low back pain with right-sided sciatica M54.41 Active 314298588 Problem 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 Active 480823427 Problem 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 34595553 Problem Frequent falls R29.6 Active 21729 2001 Problem HILARIO (obstructive sleep apnea) G47.33 Active 25453133 Problem Cerebrovascular accident (CV A) due to occlusion of other cerebral artery I63.59 Active 514755148 Problem Sciatica M54.30 Active 34764391 Problem Gangrene I96 Active 627483907 Problem Hepatitis C B19.20 Active 64616910 Problem Unsteady gait R26.81 Active 656312 008 Problem Seborrheic keratoses L82.1 Active 702207782 Problem Non-pressure chronic ulcer o f other part of unspecified foot limited to breakdown of skin L97.501 Active 032533713 Problem Urinary frequency R35.0 Active 16 7545663 Problem Necrosis I96 Active 443714201 Problem 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 Active 840775499 Problem Type 2 diabetes mellitus with foot ulcer E11.621 Active 170330713574925 Problem Arterial insufficiency of lower extremity I73.9 Active 435467194120241 Problem Ventricular tachycardia I47.2 Active 00168567 Problem Atherosclerosis of renal artery I70.1 Active 170095646262040 Problem 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 Z79 .01 Active 935071242 Problem 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 Active 423091193 Problem Chronic anticoagulation Z79.01 Active 520790224 Problem Sialoadenitis, unspecified K11.20 Act gulshan 59312702 Problem Current moderate episode of major depressive disorder without prior episode F32.1 Active 88697068 Problem Body mass index (BMI) 29.0-29.9, adult Z68.29 Active 736728474 Problem Systolic congestive heart failure, unspecified HF chronici ty I50.20 Active 25918582 Problem Hypertension I10 Active 1392880 3 Problem Cardiomyopathy of undetermined type I42.9 Active 40583139 ALLERGIES No Information ENCOUNTERS Encounter Location Date Diagnosis [place] [address] [place] [id number] [place] [phone] 08 Sep, 2019 [place] [address] [facility] [id number] [address] [place] [phone] Aug, [place] [address] [place] [id number] [place] [address] July, Other chronic pain G89.29 [place] [address] [place] [id number] [place] [phone] Jun, Other chronic pain G89.29 [place] [address] [place] [id number] [place] [phone] 14 Jun, 2019 Frequent headaches R51 [facility] [address] [facility] [id number] [address] [place] [address] Jun, Systolic congestive heart fa ilure, unspecified HF chronicity I50.20 ; Type 2 diabetes mellitus with foot ulcer E11.621 and Coronary artery disease of [place] artery of [place] heart with stable angina pectoris I25.118 [facility] [address] [facility] [id number] [address] [place] [address] Jun, Other chronic pain G89.29 [facility] [address] [facility] [id number] [address] [place] [address] May, [place] [address] [facility] [id number] [place] [address] May, Other chronic pain G89.29 [place] [address] [place] [id number] [place] [phone] Apr, Atherosclerosis of renal art taurus I70.1 ; Cardiomyopathy of undetermined type I42.9 and Ventricular tachycardia I47.2 [facility] [address] [facility] [id number] [address] [place] [id number] 14 Apr, 2019 [facility] [address] [facility] [id number] [address] [place] [phone] Apr, Non-intractable vomiting wit h nausea, unspecified vomiting type R11.2 [facility] [address] [facility] [id number] [address] [place] [address] Apr, Other chronic pain G89.29 [facility] [address] [facility] [id number] [address] [place] [phone] Mar, Other chronic pain G89.29 [place] [address] [facility] [id number] [address] [place] [address] Feb, Renal insufficiency N28.9 [facility] [address] [facility] [id number] [address] [place] [address] Feb, [place] [address] [id number] [address] [place] [phone] Feb, Frequent headaches R51 and H ypertension I10 [place] [address] [facility] [id number] [address] [place] [address] Feb, Other chronic pain G89.29 [facility] [address] [facility] [id number] [address] [place] [phone] 27 Jan, 2019 Encounter for [facility] Z00.00 ; Arterial insufficiency of [...] episode F32.1 and Encounter for immunization Z23 [place] [address] [facility] [id number] [address] [place] [phone] 22 Jan, 2019 [place] [address] [facility] [id number] [address] [place] [phone] 13 Jan, 2019 Other chronic pain G89.29 [place] [address] [facility] [id number] [address] [place] [phone] 28 Dec, 2018 [place] [address] [facility] [id number] [address] [place] [phone] 15 Dec, 2018 Hypokalemia E87.6 [facility] [address] [facility] [id number] [address] [place] [phone] 15 Dec, 2018 Nausea R11.0 [place] [address] [facility] [id number] [address] [place] [address] 14 Dec, 2018 Other chronic pain G89.29 [facility] [address] [facility] [id number] [address] [place] [phone] 10 Dec, 2018 Systolic congestive heart fa ilure, unspecified HF chronicity I50.20 and Ventricular tachycardia I47.2 [facility] [address] [facility] [id number] [address] [place] [phone] 08 Dec, 2018 [place] [address] [facility] [id number] [address] [place] [phone] Nov, Other chronic pain G89.29 [place] [address] [facility] [id number] [address] [place] [address] Nov, Nausea with vomiting, unspec ified R11.2 [place] [address] [facility] [id number] [address] [place] [phone] Oct, [place] [address] [facility] [id number] [address] [place] [address] Oct, Other chronic pain G89.29 [place] [address] [place] [id number] [place] [phone] Oct, [place] [address] [place] [id number] [place] [address] Oct, Arterial insufficiency of lo wer extremity I73.9 and High risk medication use Z79.899 [facility] [address] [place] [id number] [place] [phone] Oct, Type 2 diabetes mellitus wit h foot ulcer E11.621 and Non-pressure chronic ulcer of other part of unspecified foot limited to breakdown of skin L97.501 [facility] [address] [place] [id number] [place] [address] Oct, Gangrene I96 [place] [address] [place] [id number] [place] [address] Sep, Other chronic pain G89.29 [place] [address] [place] [id number] [place] [phone] Sep, Status post CVA Z86.73 ; Uns teady gait R26.81 and Frequent falls R29.6 [place] [address] [place] [id number] [place] [address] Sep, Nausea with vomiting, unspec ified R11.2 [facility] [address] [id number] [address] [place] [address] Sep, Other chronic pain G89.29 [facility] [address] [id number] [address] [place] [phone] Aug, [facility] [address] [id number] [address] [place] [address] Aug, Other chronic pain G89.29 [facility] [address] [id number] [address] [place] [address] July, 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 Z79.01 and Cerebrovascular accident (CVA) due to occlusion of other cerebral artery I63.59 [place] [address] [id number] [address] [place] [address] July, Renal insufficiency N28.9 [facility] [address] [id number] [address] [place] [address] July, Cerebrovascular accident (CV A) due to occlusion of other cerebral artery I63.59 and Unexplained weight loss R63.4 [facility] [address] [id number] [address] [place] [phone] July, [facility] [address] [facility] [id number] [address] [place] [phone] July, [facility] [address] [facility] [id number] [address] [place] [address] July, Unexplained weight loss R63. 4 and prison current use of anticoagulant Z79.01 [facility] [address] [id number] [address] [place] [address] July, Other chronic pain G89.29 [facility] [address] [id number] [address] [place] [address] Jun, Other chronic pain G89.29 [facility] [address] [facility] [id number] [address] [place] [address] May, Unexplained weight loss R63. 4 [facility] [address] [facility] [id number] [address] [place] [phone] May, Nausea with vomiting, unspec ified R11.2 [facility] [address] [facility] [id number] [address] [place] [address] May, Non-recurrent acute suppurat gulshan otitis media of right ear without spontaneous rupture of tympanic membrane H66.001 and Chronic anticoagulation Z79.01 [facility] [address] [facility] [id number] [address] [place] [address] May, Other chronic pain G89.29 [facility] [address] [facility] [id number] [address] [place] [address] Apr, Skin tear of right forearm w ithout complication, initial encounter S51.811A ; Skin tear of left forearm without complication, initial encounter S51.812A and Encounter for immunization Z23 [facility] [address] [facility] [id number] [address] [place] [address] Apr, [facility] [address] [facility] [id number] [address] [place] [address] Apr, Diarrhea, unspecified R19.7 ; Nausea with vomiting, unspecified R11.2 and 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 [facility] [address] [facility] [id number] [address] [place] [phone] Apr, Other chronic pain G89.29 [facility] [address] [facility] [id number] [address] [place] [address] Mar, Other chronic pain G89.29 [place] [address] [facility] [id number] [address] [place] [address] Mar, Other chronic pain G89.29 [facility] [address] [place] [id number] [place] [address] Mar, [facility] [address] [place] [id number] [place] [address] Mar, Other organ or system involv ement in systemic lupus erythematosus M32.19 [facility] [address] [facility] [id number] [address] [place] [address] Mar, Non-recurrent acute suppurat gulshan otitis media of right ear without spontaneous rupture of tympanic membrane H66.001 and Chronic anticoagulation Z79.01 [facility] [address] [id number] [address] [place] [address] Feb, Sialoadenitis, unspecified K 11.20 [facility] [address] [id number] [address] [place] [address] Feb, Other chronic pain G89.29 [facility] [address] [facility] [id number] [address] [place] [address] Jan, 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 therapy Z79.01 [place] [address] [facility] [id number] [address] [place] [address] Jan, Other chronic pain G89.29 ; Lumbago with sciatica, right side M54.41 ; Other chronic pain G89.29 ; Tobacco abuse Z72.0 ; Tobacco abuse counseling Z71.6 ; Mixed hyperlipidemia E78.2 and prison 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 Z79.01 [facility] [address] [facility] [id number] [address] [place] [phone] Jan, [facility] [address] [id number] [address] [place] [address] Dec, [facility] [address] [id number] [address] [place] [phone] Dec, [facility] [address] [facility] [id number] [address] [place] [phone] Dec, [place] [address] [facility] [id number] [address] [place] [address] Dec, Mixed hyperlipidemia E78.2 ; Other chronic [...] involvement in systemic lupus erythematosus M32.19 [facility] [address] [place] [id number] Dec, Right renal artery stenosis I70.1 ; Othe r organ or system involvement in systemic lupus erythematosus M32.19 ; Hepatitis C B19.20 ; Tobacco abuse Z72.0 and Weakness R53.1 [facility] [employer] [facility] [address] [place] [id number] Dec, [facility] [address] [facility] [id number] [address] [place] [phone] Dec, [place] [address] [facility] [id number] [address] [place] [address] Dec, Other organ or system involv ement in systemic lupus erythematosus M32.19 [facility] [address] [place] [id number] Dec, Right renal artery stenosis I70.1 ; Inju ry of right kidney, sequela S37.001S ; Tobacco abuse Z72.0 ; Systemic lupus erythematosus, unspecified SLE type, unspecified organ involvement status M32.9 ; Hepatitis C B19.20 and Candidiasis of female genitalia B37.3 [facility] [address] [id number] [address] [place] [address] Dec, Other organ or system involv ement in systemic lupus erythematosus M32.19 [facility] [address] [id number] [address] [place] [address] Dec, Other organ or system involv ement in systemic lupus erythematosus M32.19 [facility] [address] [id number] [address] [place] [address] Dec, [facility] [address] [id number] [address] [place] [address] Nov, Other organ or system involv ement in systemic lupus erythematosus M32.19 [facility] [address] [id number] [address] [place] [address] Oct, Other organ or system involv ement in systemic lupus erythematosus M32.19 [facility] [address] [id number] [address] [place] [address] Sep, Other organ or system involv ement in systemic lupus erythematosus M32.19 [facility] [address] [id number] [address] [place] [address] Aug, Anxiety F41.9 [facility] [address] [id number] [address] [place] [address] Aug, Other organ or system involv ement in systemic lupus erythematosus M32.19 [facility] [address] [id number] [address] [place] [address] July, Medicare annual wellness vis it, initial Z00.00 ; Anxiety F41.9 ; HILARIO (obstructive sleep apnea) G47.33 ; Hepatitis C B19.20 ; Other chronic pain G89.29 ; Asymptomatic menopausal state Z78.0 and Episode of recurrent major depressive disorder, unspecified depression episode severity F33.9 [facility] [address] [id number] [address] [place] [address] July, Anxiety F41.9 [facility] [address] [id number] [address] [place] [address] July, Other organ or system involv ement in systemic lupus erythematosus M32.19 [facility] [address] [id number] [address] [place] [address] July, [facility] [address] [id number] [address] [place] [address] Jun, Other organ or system involv ement in systemic lupus erythematosus M32.19 ; BMI 40.0-44.9, adult Z68.41 ; Other chronic pain G89.29 and Controlled substance agreement signed Z79.899 [facility] [address] [facility] [id number] [address] [place] [address] May, Sciatica M54.30 [facility] [address] [id number] [address] [place] [address] Apr, Sciatica M54.30 [facility] [address] [facility] [id number] [address] [place] [address] Mar, Sciatica M54.30 [facility] [address] [id number] [address] [place] [address] Feb, Sciatica M54.30 [place] [address] [facility] [id number] [address] [place] [address] 15 Jan, 2017 Sciatica M54.30 [place] [address] [place] [id number] [place] [address] Jan, Sciatica M54.30 [place] [address] [facility] [id number] [address] [place] [address] Dec, Sciatica M54.30 [place] [address] [facility] [id number] [address] [place] [address] 18 Dec, 2016 Sciatica M54.30 [place] [address] [facility] [id number] [address] [place] [address] 29 Nov, 2016 Mixed hyperlipidemia E78.2 ; Chronic seasonal allergic rhinitis due to other allergen J30.2 and Family history of early CAD Z82.49 [facility] [address] [facility] [id number] [address] [place] [address] Nov, Sciatica M54.30 [facility] [address] [facility] [id number] [address] [place] [address] 18 Nov, 2016 Mixed hyperlipidemia E78.2 ; Chronic seasonal allergic rhinitis due to other allergen J30.2 ; Family history of early CAD Z82.49 ; Other chronic pain G89.29 and Pain in left shoulder M25.512 [facility] [address] [id number] [address] [place] [address] Nov, Acute pain of left shoulder M25.512 [facility] [address] [id number] [address] [place] [address] Oct, Sciatica M54.30 [facility] [address] [id number] [address] [place] [phone] Oct, [facility] [address] [id number] [address] [place] [address] Sep, Sciatica M54.30 [place] [address] [facility] [id number] [address] [place] [address] Sep, Acute pain of left shoulder M25.512 [facility] [address] [facility] [id number] [address] [place] [address] Sep, Acute pain of left shoulder M25.512 [place] [address] [facility] [id number] [address] [place] [address] Aug, Sciatica M54.30 [place] [address] [facility] [id number] [address] [place] [address] Aug, Sciatica M54.30 ; Tobacco ab use Z72.0 and Tobacco abuse counseling Z71.6 [place] [address] [facility] [id number] [address] [place] [address] Aug, Acute pain of left shoulder M25.512 [facility] [address] [id number] [address] [place] [address] Aug, Contusion of right shoulder, initial encounter S40.011A ; Acute pain of left shoulder M25.512 and Shortness of breath R06.02 [facility] [address] [facility] [id number] [address] [place] [address] Aug, Lumbago with sciatica, right side M54.41 [facility] [address] [facility] [id number] [address] [place] [address] July, [facility] [address] [facility] [id number] [address] [place] [address] July, Lumbago with sciatica, right side M54.41 [facility] [address] [facility] [id number] [address] [place] [address] Jun, Lumbago with sciatica, right side M54.41 [facility] [address] [place] [id number] [place] [address] May, Lumbago with sciatica, right side M54.41 [facility] [id number] [address] [place] [id number] May, Herpes zoster without compli cation B02.9 [facility] [address] [id number] [address] [place] [phone] May, Back pain M54.9 and Acute ri ght-sided low back pain with right-sided sciatica M54.41 [facility] [address] [id number] [address] [place] [id number] Apr, [facility] [id number] [place] [phone] Apr, Lumbago with sciatica, right side M54.41 and Other chronic pain G89.29 [facility] [address] [id number] [place] [phone] Apr, [facility] [address] [facility] [id number] [address] [place] [phone] Mar, [facility] [id number] [address] [place] [phone] Mar, [facility] [address] [id number] [address] [place] [address] Feb, [facility] [address] [facility] [id number] [address] [place] [address] Jan, Urinary frequency R35.0 [facility] [address] [id number] [address] [place] [address] Jan, [facility] [address] [id number] [address] [place] [address] Dec, [facility] [address] [id number] [address] [place] [address] Oct, [facility] [address] [id number] [address] [place] [address] Sep, [facility] [address] [id number] [address] [place] [address] Sep, Foreign body in left foot, i nitial encounter S90.852A [facility] [address] [facility] [id number] [address] [place] [address] Aug, [facility] [address] [facility] [id number] [address] [place] [address] July, Sciatica M54.30 [facility] [address] [id number] [address] [place] [address] Jun, [facility] [address] [id number] [address] [place] [address] May, Osteoarthritis M19.90 [facility] [address] [facility] [id number] [address] [place] [address] May, [facility] [address] [facility] [id number] [address] [place] [address] May, Pain in right hip M25.551 [facility] [address] [id number] [address] [place] [address] 06 May, 2015 Tinea corporis B35.4 [facility] [address] [id number] [address] [place] [address] 10 Apr, 2015 Pain in right hip M25.551 [facility] [address] [facility] [id number] [address] [place] [address] Mar, Pain in right hip M25.551 [facility] [address] [id number] [address] [place] [address] Mar, [facility] [address] [id number] [address] [place] [address] Feb, Pain in right hip M25.551 [facility] [address] [id number] [address] [place] [address] Jan, Acute bronchitis, unspecifie d organism J20.9 and Cough R05 [facility] [address] [id number] [address] [place] [address] Jan, Pain in right hip M25.551 [facility] [address] [id number] [address] [place] [address] Dec, Pain in right hip M25.551 [facility] [address] [id number] [address] [place] [address] Nov, Acute bronchitis 466.0 [facility] [address] [id number] [address] [place] [address] Nov, [facility] [address] [id number] [address] [place] [address] Oct, [facility] [address] [id number] [address] [place] [address] Sep, [facility] [address] [id number] [address] [place] [address] Aug, [facility] [address] [id number] [address] [place] [address] July, [facility] [address] [id number] [address] [place] [address] 14 Jun, 2014 [facility] [address] [id number] [address] [place] [address] Jun, [facility] [address] [id number] [address] [place] [address] May, [facility] [address] [id number] [address] [place] [address], [place] [address] May, [facility] [address] [id number] [address] [place] [address], [place] [address] Apr, 2014 [facility] [address] [id number] [address] [place] [address], [place] [address] Apr, 2014 [facility] [address] [id number] [address] [place] [address], [place] [address] Apr, 2014 [facility] [address] [id number] [address] [place] [address], [place] [address] Apr, 2014 [facility] [address] [id number] [address] [place] [address], [place] [address] Apr, 2014 [facility] [address] [id number] [address] [place] [address], [place] [address] Apr, 2014 [facility] [address] [id number] [address] [place] [address] Mar, [facility] [address] [id number] [address] [place] [address], [place] [address] Mar, [facility] [address] [id number] [address] [place] [address] 15 Feb, 2014 [facility] [address] [id number] [address] [place] [address], [place] [address] Feb, [facility] [address] [id number] [address] [place] [address] Feb, [facility] [address] [id number] [address] [place] [address], [place] [address] Dec, [facility] [address] [id number] [address] [place] [address] Dec, [facility] [address] [id number] [address] [place] [address] Nov, [facility] [address] [id number] [address] [place] [address], [place] [address] Nov, [facility] [address] [id number] [address] [place] [address], [place] [address] Nov, [facility] [address] [id number] [address] [place] [address], [place] [address] Nov, [facility] [address] [id number] [address] [place] [address], [place] [address] Sep, [facility] [address] [id number] [address] [place] [address], [place] [address] Sep, [facility] [address] [id number] [address] [place] [address], [place] [address] Sep, [facility] [address] [id number] [address] [place] [address], [place] [address] Sep, [facility] [address] [id number] [address] [place] [address], [place] [address] Aug, [facility] [address] [id number] [address] [place] [address], [place] [address] Aug, [facility] [address] [id number] [address] [place] [address], [place] [address] Aug, [facility] [address] [id number] [address] [place] [address], [place] [address] Aug, [facility] [address] [id number] [address] [place] [address], [place] [address] July, [facility] [address] [id number] [address] [place] [address], [place] [address] July, [facility] [address] [id number] [address] [place] [address], [place] [address] Jun, [facility] [address] [id number] [address] [place] [address], [place] [address] Jun, [facility] [address] [id number] [address] [place] [address], [place] [address] Jun, [facility] [address] [id number] [facility] [place] [address] Jun, [facility] [address] [id number] [address] [place] [address], [place] [address] Jun, [facility] [address] [id number] [address] [place] [address], [place] [address] Jun, [facility] [address] [id number] [address] [place] [address], [place] [address] Jun, [facility] [address] [id number] [address] [place] [address], [place] [address] Jun, [facility] [address] [id number] [address] [place] [address], [place] [address] May, [facility] [address] [id number] [address] [place] [address], [place] [address] May, [facility] [address] [id number] [address] [place] [address], [place] [address] May, [facility] [address] [id number] [address] [place] [address], [place] [address] May, [facility] [address] [id number] [address] [place] [address], [place] [address] May, [facility] [address] [id number] [address] [place] [address], [place] [address] May, [facility] [address] [id number] [address] [place] [address], [place] [address] Apr, [facility] [address] [id number] [address] [place] [address], [place] [address] Apr, [facility] [address] [id number] [address] [place] [address], [place] [address] Apr, [facility] [address] [id number] [address] [place] [address], [place] [address] Apr, [facility] [address] [id number] [address] [place] [address], [place] [address] Mar, [facility] [address] [id number] [address] [place] [address], [place] [address] Mar, [facility] [address] [id number] [address] [place] [address], [place] [address] Mar, [facility] [address] [id number] [address] [place] [address], [place] [address] Mar, [facility] [address] [id number] [address] [place] [address], [place] [address] Mar, [facility] [address] [id number] [address] [place] [address], [place] [address] Mar, [facility] [address] [id number] [address] [place] [address], [place] [address] Feb, [facility] [address] [id number] [address] [place] [address], [place] [address] Feb, [facility] [address] [id number] [address] [place] [address], [place] [address] Feb, [facility] [address] [id number] [address] [place] [address], [place] [address] Feb, [facility] [address] [id number] [address] [place] [address], [place] [address] Feb, [facility] [address] [id number] [address] [place] [address], [place] [address] Feb, [facility] [address] [id number] [address] [place] [address], [place] [address] Feb, [facility] [address] [id number] [address] [place] [address], [place] [address] Feb, [facility] [address] [id number] [address] [place] [address], [place] [address] Feb, [facility] [address] [id number] [address] [place] [address] [address] Feb, [facility] [address] [id number] [address] [place] [address], [place] [address] Feb, [facility] [address] [id number] [address] [place] [address], [place] [address] Feb, [facility] [address] [id number] [address] [place] [address], [place] [address] Jan, [facility] [address] [id number] [address] [place] [address], [place] [address] Jan, [facility] [address] [id number] [address] [place] [address], [place] [address] Jan, [facility] [address] [id number] [address] [place] [address], [place] [address] Jan, [facility] [address] [id number] [address] [place] [address], [place] [address] Jan, [facility] [address] [id number] [address] [place] [address], [place] [address] Jan, [facility] [address] [id number] [address] [place] [address], [place] [address] Jan, [facility] [address] [id number] [address] [place] [address] Jan, [facility] [address] [id number] [address] [place] [address] Jan, [facility] [address] [id number] [address] [place] [address] Jan, [facility] [address] [id number] [address] [place] [address], [place] [address] Dec, [facility] [address] [id number] [address] [place] [address] Dec, [facility] [address] [id number] [address] [place] [address], [place] [address] Nov, [facility] [address] [id number] [address] [place] [address], [place] [address] 25 Nov, 2012 [facility] [address] [id number] [address] [place] [address], [place] [address] Nov, 2012 [facility] [address] [id number] [address] [place] [address], [place] [address] 05 Nov, 2012 [facility] [address] [id number] [address] [place] [address], [place] [address] Nov, [facility] [address] [id number] [address] [place] [address], [place] [address] Oct, [facility] [address] [id number] [address] [place] [address], [place] [address] Oct, [facility] [address] [id number] [address] [place] [address], [place] [address] Oct, [facility] [address] [id number] [address] [place] [address], [place] [address] Oct, [facility] [address] [id number] [address] [place] [address], [place] [address] Oct, [facility] [address] [id number] [address] [place] [address], [place] [address] Sep, [facility] [address] [id number] [address] [place] [address], [place] [address] Sep, [facility] [address] [id number] [address] [place] [address], [place] [address] Sep, [facility] [address] [id number] [address] [place] [address], [place] [address] Sep, [facility] [address] [id number] [address] [place] [address], [place] [address] Sep, [facility] [address] [id number] [address] [place] [address], [place] [address] Sep, [facility] [address] [id number] [address] [place] [address], [place] [address] Aug, [facility] [address] [id number] [address] [place] [address], [place] [address] 07 Aug, 2012 [facility] [address] [id number] [address] [place] [address], [place] [address] July, [facility] [address] [id number] [address] [place] [address], [place] [address] July, [facility] [address] [id number] [address] [place] [address], [place] [address] July, [facility] [address] [id number] [address] [place] [address], [place] [address] Jun, [facility] [address] [id number] [address] [place] [address], [place] [address] Jun, [facility] [address] [id number] [address] [place] [address], [place] [address] Jun, [facility] [address] [id number] [address] [place] [address], [place] [address] Jun, [facility] [address] [id number] [address] [place] [address], [place] [address] May, [facility] [address] [id number] [address] [place] [address], [place] [address] May, [facility] [address] [id number] [address] [place] [address], [place] [address] Apr, [facility] [address] [id number] [address] [place] [address], [place] [address] Apr, [facility] [address] [id number] [address] [place] [address], [place] [address] Apr, [facility] [address] [id number] [address] [place] [address], [place] [address] Apr, [facility] [address] [id number] [address] [place] [address], [place] [address] Apr, [facility] [address] [id number] [address] [place] [address], [place] [address] Apr, [facility] [address] [id number] [address] [place] [address], [place] [id number] Apr, [facility] [address] [id number] [address] [place] [address], [place] [address] Apr, [facility] [address] [id number] [address] [place] [address], [place] [address] Mar, [facility] [address] [id number] [address] [place] [address], [place] [address] Mar, [facility] [address] [id number] [address] [place] [address], [place] [address] Mar, [facility] [address] [id number] [address] [place] [address], [place] [address] Mar, [facility] [address] [id number] [address] [place] [address], [place] [address] Jan, [facility] [address] [id number] [address] [place] [address], [place] [address] Jan, [facility] [address] [id number] [address] [place] [address], [place] [address] Jan, [facility] [address] [id number] [address] [place] [address], [place] [address] Jan, [facility] [address] [id number] [address] [place] [address], [place] [address] Jan, [facility] [address] [id number] [address] [place] [address], [place] [address] Dec, [facility] [address] [id number] [address] [place] [address], [place] [address] Dec, [facility] [address] [id number] [address] [place] [address], [place] [address] Dec, [facility] [address] [id number] [address] [place] [address], [place] [address] Dec, [facility] [address] [id number] [address] [place] [address], [place] [address] Nov, [facility] [address] [id number] [address] [place] [address], [place] [address] Oct, [facility] [address] [id number] [address] [place] [address], [place] [address] Oct, [facility] [address] [id number] [address] [place] [address], [place] [address] Oct, [facility] [address] [id number] [address] [place] [address], [place] [address] Oct, [facility] [address] [id number] [address] [place] [address], [place] [address] Oct, [facility] [address] [id number] [address] [place] [address], [place] [address] Sep, [facility] [address] [id number] [address] [place] [address], [place] [address] Sep, [facility] [address] [id number] [address] [place] [address], [place] [address] Aug, [facility] [address] [id number] [address] [place] [address], [place] [address] Aug, [facility] [address] [id number] [address] [place] [address], [place] [address] Aug, [facility] [address] [id number] [address] [place] [address], [place] [address] Aug, [facility] [address] [id number] [address] [place] [address], [place] [address] July, [facility] [address] [id number] [address] [place] [address], [place] [address] Jun, [facility] [address] [id number] [address] [place] [address], [place] [address] May, [facility] [address] [id number] [address] [place] [address], [place] [address] May, [facility] [address] [id number] [address] [place] [address], [place] [address] 12 May, 2011 [facility] [address] [id number] [address] [place] [address], [place] [address] Mar, [facility] [address] [id number] [address] [place] [address], [place] [address] Feb, [facility] [address] [id number] [address] [place] [address], [place] [address] Feb, [facility] [address] [id number] [address] [place] [address], [place] [address] Jan, [facility] [address] [id number] [address] [place] [address], [place] [address] Jan, [facility] [address] [id number] [address] [place] [address], [place] [address] Jan, [facility] [address] [id number] [address] [place] [address], [place] [address] Jan, [facility] [address] [id number] [address] [place] [address], [place] [address] 30 Jan, 2010 [facility] [address] [id number] [address] [place] [address], [place] [address] Dec, [facility] [address] [id number] [address] [place] [phone] Dec, [facility] [address] [id number] [address] [place] [phone] Dec, [facility] [address] [id number] [address] [place] [address], [place] [address] 18 May, 2009 [facility] [address] [id number] [address] [place] [address], [place] [address] 15 May, 2009 [facility] [address] [id number] [address] [place] [address], [place] [address] 17 Apr, 2009 [facility] [address] [id number] [address] [place] [phone] Jan, [facility] [address] [facility] [id number] [address] [place] [phone] Apr, IMMUNIZATIONS No Known Immunizations SOCIAL HISTORY Never Assessed REASON FOR VISIT PLAN OF CARE VITAL SIGNS Height 63 in 2013-02-11 Weight 223.39 lbs 2013-02-11 Temperature 98.6 degrees Fahrenheit 2013-02-11 Heart Rate 86 bpm 2013-02-11 Respiratory Rate 18 2013-02-11 Blood pressure systolic 148 mmHg 2013-02-11 Blood pressure diastolic 92 mmHg 2013-02-11 MEDICATIONS Unknown Medications RESULTS No Results PROCEDURES [...] for cancer Hospitalization History surgeries [facility]- St[facility] a [facility] ICU 12[facility]2017 [facility] St[facility] 2 weeks 06/2018 Hospitalization History ER 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
--- OUTSIDE RECORDS SUMMARY | 2019-10-19 08:24 | XMS REPORT ---
Author Author Eugenio LINDA [facility] Address [address] [place] [address] Care Team Providers Care Umbrella Tipper Name Role Phone EUGENIO LINDA Unavailable PROBLEMS Type Condition ICD9-CM Code NUT84-JP Code Onset Dates Condition S tatus SNOMED Code Problem Mixed hyperlipidemia E78.2 Active 188693551 Problem Anxiety F41.9 Active 58063902 Problem Other organ or system involvement in systemic julito pus erythematosus M32.19 Active 13094695 Problem Episode of recurrent major d epressive disorder, unspecified depression episode severity F33.9 Active 018907319 Problem Asymptomatic menopausal state Z78.0 Active 23473566 Problem Systemic lupus erythematosus , unspecified SLE type, unspecified organ involvement status M32.9 Active 34768551 Problem Right renal artery stenosis I70.1 Ac tive [id number] Problem Type 2 diabetes mellitus with foot ulcer E11.621 Active 694153679920928 Problem Lumbago with sciatica, right side M54.41 Active 187430066 Problem Non-pressure chronic ulcer o f other part of unspecified foot limited to breakdown of skin L97.501 Active 904914219 Problem Other chronic pain G89.29 Active 8 1890758 Problem Other chronic pain G89.29 Active 8 7606475 Problem Acute right-sided low back pain with right-sided sciatica M54.41 Active 550940504 Problem longterm current use of anticoagulant Z79.01 Active 920536729 Problem 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 19907748 Problem Frequent falls R29.6 Active 26663 2001 Problem HILARIO (obstructive sleep apnea) G47.33 Active 57129559 Problem Cerebrovascular accident (CV A) due to occlusion of other cerebral artery I63.59 Active 476469668 Problem Sciatica M54.30 Active 34007902 Problem Gangrene I96 Active 457652919 Problem Hepatitis C B19.20 Active 33683461 Problem Unsteady gait R26.81 Active 387900 008 Problem Seborrheic keratoses L82.1 Active 535359371 Problem Non-pressure chronic ulcer o f other part of unspecified foot limited to breakdown of skin L97.501 Active 526152509 Problem Urinary frequency R35.0 Active 16 0053935 Problem Necrosis I96 Active 921889588 Problem 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 Active 372823487 Problem Type 2 diabetes mellitus with foot ulcer E11.621 Active 295193381459113 Problem Arterial insufficiency of lower extremity I73.9 Active 023714967377554 Problem Ventricular tachycardia I47.2 Active 71652938 Problem Atherosclerosis of renal artery I70.1 Active 348332705753566 Problem meterman 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 Z79 .01 Active 184813470 Problem 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 Active 412070136 Problem Chronic anticoagulation Z79.01 Active 236927989 Problem Sialoadenitis, unspecified K11.20 Act gulshan 70703428 Problem Current moderate episode of major depressive disorder without prior episode F32.1 Active 67246483 Problem Body mass index (BMI) 29.0-29.9, adult Z68.29 Active 107079824 Problem Systolic congestive heart failure, unspecified HF chronici ty I50.20 Active 45061257 Problem Hypertension I10 Active 6195579 3 Problem Cardiomyopathy of undetermined type I42.9 Active 89534881 ALLERGIES No Information ENCOUNTERS Encounter Location Date Diagnosis [place] [address] [facility] [id number] [address] [place] [phone] Sep, [place] [address] [facility] [id number] [address] [place] [address] Aug, [place] [address] [facility] [id number] [address] [place] [address] July, Other chronic pain G89.29 [place] [address] [facility] [id number] [address] [place] [address] Jun, Other chronic pain G89.29 [place] [address] [place] [id number] [address] [place] [address] 14 Jun, 2019 Frequent headaches R51 [facility] [address] [facility] [id number] [address] [place] [address] Jun, Systolic congestive heart fa ilure, unspecified HF chronicity I50.20 ; Type 2 diabetes mellitus with foot ulcer E11.621 and Coronary artery disease of [place] artery of [place] heart with stable angina pectoris I25.118 [facility] [address] [facility] [id number] [address] [place] [address] Jun, Other chronic pain G89.29 [facility] [address] [facility] [id number] [address] [place] [address] May, [place] [address] [place] [id number] [place] [address] May, Other chronic pain G89.29 [place] [address] [place] [id number] [address] [place] [address] Apr, Atherosclerosis of renal art taurus I70.1 ; Cardiomyopathy of undetermined type I42.9 and Ventricular tachycardia I47.2 [facility] [address] [facility] [id number] [address] [place] [address] 14 Apr, 2019 [facility] [address] [place] [id number] [address] [place] [address] Apr, Non-intractable vomiting wit h nausea, unspecified vomiting type R11.2 [facility] [address] [place] [id number] [address] [place] [address] Apr, Other chronic pain G89.29 [facility] [address] [facility] [id number] [address] [place] [address] Mar, Other chronic pain G89.29 [place] [address] [place] [id number] [address] [place] [address] Feb, Renal insufficiency N28.9 [facility] [address] [place] [id number] [address] [place] [address] Feb, [facility] [address] [facility] [id number] [address] [place] [address] Feb, Frequent headaches R51 and H ypertension I10 [place] [address] [facility] [id number] [address] [place] [address] Feb, Other chronic pain G89.29 [place] [address] [facility] [id number] [address] [place] [address] 27 Jan, 2019 En[facility] Z00.00 ; Arterial insufficiency of [...] episode F32.1 and Encounter for immunization Z23 [place] [address] [facility] [id number] [address] [place] [address] 22 Jan, 2019 [place] [address] [facility] [id number] [address] [place] [address] 13 Jan, 2019 Other chronic pain G89.29 [place] [address] [facility] [id number] [address] [place] [address] 28 Dec, 2018 [place] [address] [facility] [id number] [address] [place] [address] 15 Dec, 2018 Hypokalemia E87.6 [place] [address] [facility] [id number] [address] [place] [address] 15 Dec, 2018 Nausea R11.0 [place] [address] [facility] [id number] [address] [place] [id number] 14 Dec, 2018 Other chronic pain G89.29 [place] [address] [facility] [id number] [address] [place] [address] 10 Dec, 2018 Systolic congestive heart fa ilure, unspecified HF chronicity I50.20 and Ventricular tachycardia I47.2 [place] [address] [facility] [id number] [address] [place] [address] 08 Dec, 2018 [facility] [address] [address] Nov, Other chronic pain G89.29 [facility] [address] [place] [id number] [address] [place] [phone] Nov, Nausea with vomiting, unspec ified R11.2 [place] [address] [place] [id number] [place] [address] Oct, [place] [address] [place] [id number] [place] [address] Oct, Other chronic pain G89.29 [place] [address] [place] [id number] [place] [address] Oct, [place] [address] [address] Oct, Arterial insufficiency of lo wer extremity I73.9 and High risk medication use Z79.899 [facility] [address] [address] Oct, Type 2 diabetes mellitus wit h foot ulcer E11.621 and Non-pressure chronic ulcer of other part of unspecified foot limited to breakdown of skin L97.501 [facility] [address] [address] Oct, Gangrene I96 [facility] [address] [place] [id number] [place] [address] Sep, Other chronic pain G89.29 [place] [address] [address] Sep, Status post CVA Z86.73 ; Uns teady gait R26.81 and Frequent falls R29.6 [place] [address] [address] Sep, Nausea with vomiting, unspec ified R11.2 [facility] [address] [id number] [address] [place] [address] Sep, Other chronic pain G89.29 [facility] [address] [id number] [address] [place] [address] Aug, [facility] [address] [id number] [address] [place] [address] Aug, Other chronic pain G89.29 [facility] [address] [id number] [address] [place] [address] July, longterm current use of ant icoagulant Z79.01 and Cerebrovascular accident (CVA) due to occlusion of other cerebral artery I63.59 [place] [address] [facility] [id number] [address] [place] [address] July, Renal insufficiency N28.9 [place] [address] [id number] [address] [place] [address] July, Cerebrovascular accident (CV A) due to occlusion of other cerebral artery I63.59 and Unexplained weight loss R63.4 [place] [address] [facility] [id number] [address] [place] [address] July, [place] [address] [facility] [id number] [address] [place] [address] July, [facility] [address] [facility] [id number] [address] [place] [address] July, Unexplained weight loss R63. 4 and meterman current use of anticoagulant Z79.01 [facility] [address] [id number] [address] [place] [address] July, Other chronic pain G89.29 [facility] [address] [facility] [id number] [address] [place] [address] Jun, Other chronic pain G89.29 [place] [address] [facility] [id number] [address] [place] [address] May, Unexplained weight loss R63. 4 [facility] [address] [facility] [id number] [address] [place] [address] May, Nausea with vomiting, unspec ified R11.2 [facility] [address] [facility] [id number] [address] [place] [address] May, Non-recurrent acute suppurat gulshan otitis media of right ear without spontaneous rupture of tympanic membrane H66.001 and Chronic anticoagulation Z79.01 [facility] [address] [facility] [id number] [address] [place] [address] May, Other chronic pain G89.29 [facility] [address] [facility] [id number] [address] [place] [address] Apr, Skin tear of right forearm w ithout complication, initial encounter S51.811A ; Skin tear of left forearm without complication, initial encounter S51.812A and Encounter for immunization Z23 [facility] [address] [facility] [id number] [address] [place] [address] Apr, [facility] [address] [facility] [id number] [address] [place] [address] Apr, Diarrhea, unspecified R19.7 ; Nausea with vomiting, unspecified R11.2 and 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 [place] [address] [facility] [id number] [address] [place] [address] Apr, Other chronic pain G89.29 [facility] [address] [facility] [id number] [address] [place] [address] Mar, Other chronic pain G89.29 [place] [address] [facility] [id number] [address] [place] [address] Mar, Other chronic pain G89.29 [facility] [address] [place] [id number] [address] [place] [address] Mar, [facility] [address] [place] [id number] [address] [place] [address] Mar, Other organ or system involv ement in systemic lupus erythematosus M32.19 [facility] [address] [id number] [address] [place] [address] Mar, Non-recurrent acute suppurat gulshan otitis media of right ear without spontaneous rupture of tympanic membrane H66.001 and Chronic anticoagulation Z79.01 [facility] [address] [id number] [address] [place] [id number] Feb, Sialoadenitis, unspecified K 11.20 [facility] [address] [id number] [address] [place] [address] Feb, Other chronic pain G89.29 [facility] [address] [id number] [address] [place] [address] Jan, meterman current use of ant icoagulant therapy Z79.01 [place] [address] [id number] [address] [place] [address] Jan, Other chronic pain G89.29 ; Lumbago with sciatica, right side M54.41 ; Other chronic pain G89.29 ; Tobacco abuse Z72.0 ; Tobacco abuse counseling Z71.6 ; Mixed hyperlipidemia E78.2 and meterman 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 Z79.01 [facility] [address] [id number] [address] [place] [address] Jan, [facility] [address] [id number] [address] [place] [address] Dec, [facility] [address] [id number] [address] [place] [address] Dec, [facility] [address] [facility] [id number] [address] [place] [address] Dec, [facility] [address] [id number] [address] [place] [address] Dec, Mixed hyperlipidemia E78.2 ; Other chronic [...] in systemic lupus erythematosus M32.19 [facility] [address] [place] [id number] Dec, Right renal artery stenosis I70.1 ; Othe r organ or system involvement in systemic lupus erythematosus M32.19 ; Hepatitis C B19.20 ; Tobacco abuse Z72.0 and Weakness R53.1 [facility] [address] [place] [id number] Dec, [place] [address] [facility] [id number] [address] [place] [address] Dec, [place] [address] [facility] [id number] [address] [place] [address] Dec, Other organ or system involv ement in systemic lupus erythematosus M32.19 [facility] [address] [place] [id number] Dec, Right renal artery stenosis I70.1 ; Inju ry of right kidney, sequela S37.001S ; Tobacco abuse Z72.0 ; Systemic lupus erythematosus, unspecified SLE type, unspecified organ involvement status M32.9 ; Hepatitis C B19.20 and Candidiasis of female genitalia B37.3 [facility] [address] [id number] [address] [place] [address] Dec, Other organ or system involv ement in systemic lupus erythematosus M32.19 [facility] [address] [id number] [address] [place] [address] Dec, Other organ or system involv ement in systemic lupus erythematosus M32.19 [facility] [address] [id number] [address] [place] [address] Dec, [place] [address] [id number] [address] [place] [address] Nov, Other organ or system involv ement in systemic lupus erythematosus M32.19 [facility] [address] [id number] [address] [place] [address] Oct, Other organ or system involv ement in systemic lupus erythematosus M32.19 [facility] [address] [id number] [address] [place] [address] Sep, Other organ or system involv ement in systemic lupus erythematosus M32.19 [facility] [address] [id number] [address] [place] [address] Aug, Anxiety F41.9 [facility] [address] [id number] [address] [place] [address] Aug, Other organ or system involv ement in systemic lupus erythematosus M32.19 [facility] [address] [id number] [address] [place] [address] July, Medicare annual wellness vis it, initial Z00.00 ; Anxiety F41.9 ; HILARIO (obstructive sleep apnea) G47.33 ; Hepatitis C B19.20 ; Other chronic pain G89.29 ; Asymptomatic menopausal state Z78.0 and Episode of recurrent major depressive disorder, unspecified depression episode severity F33.9 [facility] [address] [id number] [address] [place] [address] July, Anxiety F41.9 [facility] [address] [id number] [address] [place] [address] July, Other organ or system involv ement in systemic lupus erythematosus M32.19 [facility] [address] [facility] [id number] [address] [place] [address] July, [facility] [address] [id number] [address] [place] [address] Jun, Other organ or system involv ement in systemic lupus erythematosus M32.19 ; BMI 40.0-44.9, adult Z68.41 ; Other chronic pain G89.29 and Controlled substance agreement signed Z79.899 [place] [address] [facility] [id number] [address] [place] [address] May, Sciatica M54.30 [facility] [address] [facility] [id number] [address] [place] [address] Apr, Sciatica M54.30 [facility] [address] [facility] [id number] [address] [place] [address] Mar, Sciatica M54.30 [place] [address] [facility] [id number] [address] [place] [address] Feb, Sciatica M54.30 [place] [address] [place] [id number] [address] [place] [id number] 15 Jan, 2017 Sciatica M54.30 [place] [address] [place] [id number] [address] [place] [address] Jan, Sciatica M54.30 [place] [address] [place] [id number] [address] [place] [address] Dec, Sciatica M54.30 [place] [address] [place] [id number] [address] [place] [address] 18 Dec, 2016 Sciatica M54.30 [place] [address] [place] [id number] [address] [place] [address] 29 Nov, 2016 Mixed hyperlipidemia E78.2 ; Chronic seasonal allergic rhinitis due to other allergen J30.2 and Family history of early CAD Z82.49 [facility] [address] [facility] [id number] [address] [place] [address] Nov, Sciatica M54.30 [facility] [address] [facility] [id number] [address] [place] [address] 18 Nov, 2016 Mixed hyperlipidemia E78.2 ; Chronic seasonal allergic rhinitis due to other allergen J30.2 ; Family history of early CAD Z82.49 ; Other chronic pain G89.29 and Pain in left shoulder M25.512 [facility] [address] [facility] [id number] [address] [place] [address] Nov, Acute pain of left shoulder M25.512 [facility] [address] [facility] [id number] [address] [place] [address] Oct, Sciatica M54.30 [facility] [address] [facility] [id number] [address] [place] [address] Oct, [facility] [address] [facility] [id number] [address] [place] [address] Sep, Sciatica M54.30 [place] [address] [facility] [id number] [address] [place] [address] Sep, Acute pain of left shoulder M25.512 [place] [address] [place] [id number] [address] [place] [address] Sep, Acute pain of left shoulder M25.512 [place] [address] [place] [id number] [address] [place] [address] Aug, Sciatica M54.30 [place] [address] [place] [id number] [place] [address] Aug, Sciatica M54.30 ; Tobacco ab use Z72.0 and Tobacco abuse counseling Z71.6 [place] [address] [place] [id number] [address] [place] [address] Aug, Acute pain of left shoulder M25.512 [facility] [address] [facility] [id number] [address] [place] [address] Aug, Contusion of right shoulder, initial encounter S40.011A ; Acute pain of left shoulder M25.512 and Shortness of breath R06.02 [facility] [address] [facility] [id number] [address] [place] [address] Aug, Lumbago with sciatica, right side M54.41 [facility] [address] [place] [id number] [address] [place] [address] July, [facility] [address] [facility] [id number] [address] [place] [address] July, Lumbago with sciatica, right side M54.41 [facility] [address] [facility] [id number] [address] [place] [address] Jun, Lumbago with sciatica, right side M54.41 [facility] [address] [facility] [id number] [address] [place] [address] May, Lumbago with sciatica, right side M54.41 [facility] [address] [place] [id number] [address] [place] [address] May, Herpes zoster without compli cation B02.9 [facility] [address] [place] [id number] [address] [place] [address] May, Back pain M54.9 and Acute ri ght-sided low back pain with right-sided sciatica M54.41 [facility] [address] [place] [id number] [address] [place] [address] Apr, [facility] [address] [place] [id number] [place] [address] Apr, Lumbago with sciatica, right side M54.41 and Other chronic pain G89.29 [facility] [id number] [address] [place] [id number] Apr, [facility] [address] [facility] [id number] [address] [place] [id number] Mar, [facility] [id number] [address] [place] [id number] Mar, [facility] [id number] [address] [place] [id number] Feb, [facility] [address] [facility] [id number] [address] [place] [id number] Jan, Urinary frequency R35.0 [facility] [address] [id number] [address] [place] [phone] Jan, [facility] [address] [id number] [address] [place] [id number] Dec, [facility] [address] [id number] [address] [place] [address] Oct, [facility] [address] [facility] [id number] [address] [place] [address] Sep, [facility] [address] [id number] [address] [place] [address] Sep, Foreign body in left foot, i nitial encounter S90.852A [facility] [address] [facility] [id number] [address] [place] [address] Aug, [facility] [address] [facility] [id number] [address] [place] [address] July, Sciatica M54.30 [facility] [address] [id number] [address] [place] [address] Jun, [facility] [address] [facility] [id number] [address] [place] [address] May, Osteoarthritis M19.90 [facility] [address] [facility] [id number] [address] [place] [address] May, [facility] [address] [facility] [id number] [address] [place] [address] May, Pain in right hip M25.551 [facility] [address] [id number] [address] [place] [address] May, Tinea corporis B35.4 [facility] [address] [facility] [id number] [address] [place] [address] 10 Apr, 2015 Pain in right hip M25.551 [facility] [address] [facility] [id number] [address] [place] [address] Mar, Pain in right hip M25.551 [facility] [address] [id number] [address] [place] [address] Mar, [facility] [address] [id number] [address] [place] [address] Feb, Pain in right hip M25.551 [facility] [address] [id number] [address] [place] [address] Jan, Acute bronchitis, unspecifie d organism J20.9 and Cough R05 [facility] [address] [id number] [address] [place] [address] Jan, Pain in right hip M25.551 [facility] [address] [id number] [address] [place] [address] Dec, Pain in right hip M25.551 [facility] [address] [id number] [address] [place] [address] Nov, Acute bronchitis 466.0 [facility] [address] [id number] [address] [place] [address] Nov, [facility] [address] [id number] [address] [place] [address] Oct, [facility] [address] [id number] [address] [place] [address] Sep, [facility] [address] [id number] [address] [place] [address] Aug, [facility] [address] [id number] [address] [place] [address] July, [facility] [address] [id number] [address] [place] [id number] 14 Jun, 2014 [facility] [address] [id number] [address] [place] [address] Jun, [facility] [address] [id number] [address] [place] [id number] 18 May, 2014 [facility] [address] [id number] [address] [place] [address], [place] [address] 18 May, 2014 [facility] [address] [id number] [address] [place] [address], [place] [address] Apr, 2014 [facility] [address] [id number] [address] [place] [address], [place] [address] Apr, 2014 [facility] [address] [id number] [address] [place] [address], [place] [address] Apr, 2014 [facility] [address] [id number] [address] [place] [address], [place] [address] Apr, 2014 [facility] [address] [id number] [address] [place] [address], [place] [address] Apr, 2014 [facility] [address] [id number] [address] [place] [address], [place] [address] Apr, 2014 [facility] [address] [id number] [address] [place] [address], [place] [address] Mar, [facility] [address] [id number] [address] [place] [address], [place] [address] Mar, [facility] [address] [id number] [address] [place] [address], [place] [address] 15 Feb, 2014 [facility] [address] [id number] [address] [place] [address], [place] [address] Feb, [facility] [address] [id number] [address] [place] [address] Feb, [facility] [address] [id number] [address] [place] [address], [place] [address] Dec, [facility] [address] [id number] [address] [place] [address], [place] [address] Dec, [facility] [address] [id number] [address] [place] [address] Nov, [facility] [address] [id number] [address] [place] [address], [place] [address] 17 Nov, 2013 [facility] [address] [id number] [address] [place] [address], [place] [address] Nov, [facility] [address] [id number] [address] [place] [address], [place] [address] Nov, [facility] [address] [id number] [address] [place] [address], [place] [address] Sep, [facility] [address] [id number] [address] [place] [address], [place] [address] Sep, [facility] [address] [id number] [address] [place] [address], [place] [address] Sep, [facility] [address] [id number] [address] [place] [address], [place] [address] Sep, [facility] [address] [id number] [address] [place] [address], [place] [address] Aug, [facility] [address] [id number] [address] [place] [address], [place] [address] Aug, [facility] [address] [id number] [address] [place] [address], [place] [address] Aug, [facility] [address] [id number] [address] [place] [address], [place] [address] Aug, [facility] [address] [id number] [address] [place] [address], [place] [address] July, [facility] [address] [id number] [address] [place] [address], [place] [address] July, [facility] [address] [id number] [address] [place] [address], [place] [address] Jun, [facility] [address] [id number] [address] [place] [address], [place] [address] Jun, [facility] [address] [id number] [address] [place] [address], [place] [address] Jun, [facility] [address] [id number] [facility] [place] [address] Jun, [facility] [address] [id number] [address] [place] [address], [place] [address] Jun, [facility] [address] [id number] [facility] [place] [address] Jun, [facility] [address] [id number] [address] [place] [address], [place] [address] Jun, [facility] [address] [id number] [address] [place] [address], [place] [address] Jun, [facility] [address] [id number] [address] [place] [address], [place] [address] May, [facility] [address] [id number] [address] [place] [address], [place] [address] May, [facility] [address] [id number] [address] [place] [address], [place] [address] May, [facility] [address] [id number] [address] [place] [address], [place] [address] May, [facility] [address] [id number] [address] [place] [address], [place] [address] May, [facility] [address] [id number] [address] [place] [address], [place] [address] May, [facility] [address] [id number] [address] [place] [address], [place] [address] Apr, [facility] [address] [id number] [address] [place] [address], [place] [address] Apr, [facility] [address] [id number] [address] [place] [address], [place] [address] Apr, [facility] [address] [id number] [address] [place] [address], [place] [address] Apr, [facility] [address] [id number] [address] [place] [address], [place] [address] Mar, [facility] [address] [id number] [address] [place] [address], [place] [address] Mar, [facility] [address] [id number] [address] [place] [address], [place] [address] Mar, [facility] [address] [id number] [address] [place] [address], [place] [address] Mar, [facility] [address] [id number] [address] [place] [address], [place] [address] Mar, [facility] [address] [id number] [address] [place] [address], [place] [address] Mar, [facility] [address] [id number] [address] [place] [address], [place] [address] Feb, [facility] [address] [id number] [address] [place] [address], [place] [address] Feb, [facility] [address] [id number] [address] [place] [address], [place] [address] Feb, [facility] [address] [id number] [address] [place] [address], [place] [address] Feb, [facility] [address] [id number] [address] [place] [address], [place] [address] Feb, [facility] [address] [id number] [address] [place] [address], [place] [address] Feb, [facility] [address] [id number] [address] [place] [address], [place] [address] Feb, [facility] [address] [id number] [address] [place] [address], [place] [address] Feb, [facility] [address] [id number] [address] [place] [address], [place] [address] Feb, [facility] [address] [id number] [address] [place] [address], [place] [address] Feb, [facility] [address] [id number] [address] [place] [address], [place] [address] Feb, [facility] [address] [id number] [address] [place] [address], [place] [address] Feb, [facility] [address] [id number] [address] [place] [address], [place] [address] Jan, [facility] [address] [id number] [address] [place] [address], [place] [address] Jan, [facility] [address] [id number] [address] [place] [address], [place] [address] Jan, [facility] [address] [id number] [address] [place] [address], [place] [address] Jan, [facility] [address] [id number] [address] [place] [address], [place] [address] Jan, [facility] [address] [id number] [address] [place] [address], [place] [address] Jan, [facility] [address] [id number] [address] [place] [address], [place] [address] Jan, [facility] [address] [id number] [address] [place] [address] Jan, [facility] [address] [id number] [address] [place] [address], [place] [address] Jan, [facility] [address] [id number] [address] [place] [address] Jan, [facility] [address] [id number] [address] [place] [address], [place] [address] Dec, [facility] [address] [id number] [address] [place] [address], [place] [address] Dec, [facility] [address] [id number] [address] [place] [address], [place] [address] Nov, [facility] [address] [id number] [address] [place] [address], [place] [address] 25 Nov, 2012 [facility] [address] [id number] [address] [place] [address], [place] [address] Nov, [facility] [address] [id number] [address] [place] [address], [place] [address] Nov, [facility] [address] [id number] [address] [place] [address], [place] [address] Nov, [facility] [address] [id number] [address] [place] [address], [place] [address] Oct, [facility] [address] [id number] [address] [place] [address], [place] [address] Oct, [facility] [address] [id number] [address] [place] [address], [place] [address] Oct, [facility] [address] [id number] [address] [place] [address], [place] [address] Oct, [facility] [address] [id number] [address] [place] [address], [place] [address] Oct, [facility] [address] [id number] [address] [place] [address], [place] [address] Sep, [facility] [address] [id number] [address] [place] [address], [place] [address] Sep, [facility] [address] [id number] [address] [place] [address], [place] [address] Sep, [facility] [address] [id number] [address] [place] [address], [place] [address] Sep, [facility] [address] [id number] [address] [place] [address], [place] [address] Sep, [facility] [address] [id number] [address] [place] [address], [place] [address] Sep, [facility] [address] [id number] [address] [place] [address], [place] [address] Aug, [facility] [address] [id number] [address] [place] [address], [place] [address] Aug, [facility] [address] [id number] [address] [place] [address], [place] [address] July, [facility] [address] [id number] [address] [place] [address], [place] [address] July, [facility] [address] [id number] [address] [place] [address], [place] [address] July, [facility] [address] [id number] [address] [place] [address], [place] [address] Jun, [facility] [address] [id number] [address] [place] [address], [place] [address] Jun, [facility] [address] [id number] [address] [place] [address], [place] [address] Jun, [facility] [address] [id number] [address] [place] [address], [place] [address] Jun, [facility] [address] [id number] [address] [place] [address], [place] [address] May, [facility] [address] [id number] [address] [place] [address], [place] [address] May, [facility] [address] [id number] [address] [place] [address], [place] [address] Apr, [facility] [address] [id number] [address] [place] [address], [place] [address] Apr, [facility] [address] [id number] [address] [place] [address], [place] [address] Apr, [facility] [address] [id number] [address] [place] [address], [place] [address] Apr, [facility] [address] [id number] [address] [place] [address], [place] [address] Apr, [facility] [address] [id number] [address] [place] [address] Apr, [facility] [address] [id number] [address] [place] [id number] Apr, [facility] [address] [id number] [address] [place] [address] Apr, [facility] [address] [id number] [address] [place] [address], [place] [address] Mar, [facility] [address] [id number] [address] [place] [address], [place] [address] Mar, [facility] [address] [id number] [address] [place] [address], [place] [address] Mar, [facility] [address] [id number] [address] [place] [address], [place] [address] Mar, [facility] [address] [id number] [address] [place] [address], [place] [address] Jan, [facility] [address] [id number] [address] [place] [address], [place] [address] Jan, [facility] [address] [id number] [address] [place] [address], [place] [address] Jan, [facility] [address] [id number] [address] [place] [address], [place] [address] Jan, [facility] [address] [id number] [address] [place] [address], [place] [address] Jan, [facility] [address] [id number] [address] [place] [address], [place] [address] Dec, [facility] [address] [id number] [address] [place] [address], [place] [address] Dec, [facility] [address] [id number] [address] [place] [address], [place] [address] Dec, [facility] [address] [id number] [address] [place] [address] Dec, [facility] [address] [id number] [address] [place] [address], [place] [address] Nov, [facility] [address] [id number] [address] [place] [address], [place] [address] Oct, [facility] [address] [id number] [address] [place] [address], [place] [address] Oct, [facility] [address] [id number] [address] [place] [address], [place] [address] Oct, [facility] [address] [id number] [address] [place] [address], [place] [address] Oct, [facility] [address] [id number] [address] [place] [address], [place] [address] Oct, [facility] [address] [id number] [address] [place] [address], [place] [address] Sep, [facility] [address] [id number] [address] [place] [address], [place] [address] Sep, [facility] [address] [id number] [address] [place] [address], [place] [address] Aug, [facility] [address] [id number] [address] [place] [address], [place] [address] Aug, [facility] [address] [id number] [address] [place] [address], [place] [address] Aug, [facility] [address] [id number] [address] [place] [address], [place] [address] Aug, [facility] [address] [id number] [address] [place] [address], [place] [address] July, [facility] [address] [id number] [address] [place] [address], [place] [address] Jun, [facility] [address] [id number] [address] [place] [address], [place] [address] May, [facility] [address] [id number] [address] [place] [address], [place] [address] May, [facility] [address] [id number] [address] [place] [address], [place] [address] May, [facility] [address] [id number] [address] [place] [address], [place] [address] Mar, [facility] [address] [id number] [address] [place] [address], [place] [address] Feb, [facility] [address] [id number] [address] [place] [address], [place] [address] Feb, [facility] [address] [id number] [address] [place] [address], [place] [address] Jan, [facility] [address] [id number] [address] [place] [address], [place] [address] Jan, [facility] [address] [id number] [address] [place] [address], [place] [address] Jan, [facility] [address] [id number] [address] [place] [address], [place] [address] Jan, [facility] [address] [id number] [address] [place] [address], [place] [address] Jan, [facility] [address] [id number] [address] [place] [address], [place] [address] Dec, [facility] [address] [id number] [address] [place] [address] Dec, [facility] [address] [id number] [address] [place] [address] Dec, [facility] [address] [id number] [address] [place] [address], [place] [address] 18 May, 2009 [facility] [address] [id number] [address] [place] [address], [place] [address] 15 May, 2009 [facility] [address] [id number] [address] [place] [address], [place] [address] 17 Apr, 2009 [facility] [address] [id number] [address] [place] [address] Jan, [facility] [address] [facility] [id number] [address] [place] [address] Apr, IMMUNIZATIONS No Known Immunizations SOCIAL HISTORY Never Assessed REASON FOR VISIT PLAN OF CARE VITAL SIGNS Height 63 in 2013-02-22 Weight 219.1 lbs 2013-02-22 Temperature 98.9 degrees Fahrenheit 2013-02-22 Heart Rate 92 bpm 2013-02-22 Respiratory Rate 22 2013-02-22 Blood pressure systolic 146 mmHg 2013-02-22 Blood pressure diastolic 90 mmHg 2013-02-22 MEDICATIONS Unknown Medications RESULTS No Results PROCEDURES Procedure Date Ordered Result Body Site DRAIN/INJECT, JOINT/BURSA Feb 22, 2013 INSTRUCTIONS MEDICATIONS ADMINISTERED No Known [...] for cancer Hospitalization History surgeries Hospitalization History [facility] ER, heart- kidney- Stayed a [facility] ICU 12/2017 Hospitalization History [facility] ER 03/2018 Hospitalization History [facility]- Stroke 2 weeks 06/2018 Hospitalization History [facility] 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
--- OUTSIDE RECORDS SUMMARY | 2019-10-19 08:24 | XMS REPORT ---
Author Author Luanne Duque [facility] Address [address] [place] [address] Care Team Providers Care Coating Mixer Name Role Phone ONEYDA Duque Unavailable PROBLEMS Type Condition ICD9-CM Code [id number] Code Onset Dates Condition S tatus SNOMED Code Problem Mixed hyperlipidemia E78.2 Active 888412920 Problem Anxiety F41.9 Active 05617647 Problem Other organ or system involvement in systemic julito pus erythematosus M32.19 Active 36304559 Problem Episode of recurrent major d epressive disorder, unspecified depression episode severity F33.9 Active 130542998 Problem Asymptomatic menopausal state Z78.0 Active 68744856 Problem Systemic lupus erythematosus , unspecified SLE type, unspecified organ involvement status M32.9 Active 86470334 Problem Right renal artery stenosis I70.1 Ac tive [id number] Problem Type 2 diabetes mellitus with foot ulcer E11.621 Active 687802254400598 Problem Lumbago with sciatica, right side M54.41 Active 499629222 Problem Non-pressure chronic ulcer o f other part of unspecified foot limited to breakdown of skin L97.501 Active 838475407 Problem Other chronic pain G89.29 Active 8 0157250 Problem Other chronic pain G89.29 Active 8 2824010 Problem Acute right-sided low back pain with right-sided sciatica M54.41 Active 547952670 Problem 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 Active 977483898 Problem 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 57004453 Problem Frequent falls R29.6 Active 89735 2002 Problem HILARIO (obstructive sleep apnea) G47.33 Active 40428752 Problem Cerebrovascular accident (CV A) due to occlusion of other cerebral artery I63.59 Active 095025963 Problem Sciatica M54.30 Active 33580790 Problem Gangrene I96 Active 940857001 Problem Hepatitis C B19.20 Active 44472197 Problem Unsteady gait R26.81 Active 224325 008 Problem Seborrheic keratoses L82.1 Active 945316522 Problem Non-pressure chronic ulcer o f other part of unspecified foot limited to breakdown of skin L97.501 Active 281545437 Problem Urinary frequency R35.0 Active 16 5520560 Problem Necrosis I96 Active 728268915 Problem 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 Active 032489842 Problem Type 2 diabetes mellitus with foot ulcer E11.621 Active 718978954807845 Problem Arterial insufficiency of lower extremity I73.9 Active 746633921300841 Problem Ventricular tachycardia I47.2 Active 73881580 Problem Atherosclerosis of renal artery I70.1 Active 719796264367864 Problem snf 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 Z79 .01 Active 824804915 Problem 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 Active 672500416 Problem Chronic anticoagulation Z79.01 Active 151403957 Problem Sialoadenitis, unspecified K11.20 Act gulshan 09409445 Problem Current moderate episode of major depressive disorder without prior episode F32.1 Active 44731651 Problem Body mass index (BMI) 29.0-29.9, adult Z68.29 Active 015072733 Problem Systolic congestive heart failure, unspecified HF chronici ty I50.20 Active 01113015 Problem Hypertension I10 Active 1520871 3 Problem Cardiomyopathy of undetermined type I42.9 Active 61910301 ALLERGIES No Information ENCOUNTERS Encounter Location Date Diagnosis [place] [address] [place] [id number] [address] [place] [id number] 08 Sep, 2019 [place] [address] [facility] [id number] [address] [place] [phone] Aug, [place] [address] [facility] [id number] [address] [place] [phone] July, Other chronic pain G89.29 [place] [address] [facility] [id number] [address] [place] [phone] Jun, Other chronic pain G89.29 [place] [address] [place] [id number] [address] [place] [id number] 14 Jun, 2019 Frequent headaches R51 [facility] [address] [facility] [id number] [address] [place] [phone] Jun, Systolic congestive heart fa ilure, unspecified HF chronicity I50.20 ; Type 2 diabetes mellitus with foot ulcer E11.621 and Coronary artery disease of [place] artery of [place] heart with stable angina pectoris I25.118 [facility] [address] [facility] [id number] [address] [place] [phone] Jun, Other chronic pain G89.29 [facility] [address] [place] [id number] [address] [place] [phone] May, [place] [address] [place] [id number] [place] [address] May, Other chronic pain G89.29 [place] [address] [place] [id number] [address] [place] [phone] Apr, Atherosclerosis of renal art taurus I70.1 ; Cardiomyopathy of undetermined type I42.9 and Ventricular tachycardia I47.2 [facility] [address] [facility] [id number] [address] [place] [id number] 14 Apr, 2019 [facility] [address] [facility] [id number] [address] [place] [phone] Apr, Non-intractable vomiting wit h nausea, unspecified vomiting type R11.2 [facility] [address] [facility] [id number] [address] [place] [id number] Apr, Other chronic pain G89.29 [facility] [address] [facility] [id number] [address] [place] [id number] Mar, Other chronic pain G89.29 [place] [address] [place] [id number] [address] [place] [phone] Feb, Renal insufficiency N28.9 [facility] [address] [facility] [id number] [address] [place] [id number] Feb, [place] [address] [id number] [address] [place] [id number] Feb, Frequent headaches R51 and H ypertension I10 [place] [address] [facility] [id number] [address] [place] [id number] Feb, Other chronic pain G89.29 [place] [address] [facility] [id number] [address] [place] [id number] 27 Jan, 2019 [facility]counter [facility] Z00.00 ; Arterial insufficiency of [...] episode F32.1 and Encounter for immunization Z23 [place] [address] [facility] [id number] [address] [place] [phone] 22 Jan, 2019 [place] [address] [facility] [id number] [address] [place] [id number] 13 Jan, 2019 Other chronic pain G89.29 [place] [address] [facility] [id number] [address] [place] [id number] 28 Dec, 2018 [place] [address] [facility] [id number] [address] [place] [id number] 15 Dec, 2018 Hypokalemia E87.6 [place] [address] [facility] [id number] [address] [place] [id number] 15 Dec, 2018 Nausea R11.0 [place] [address] [facility] [id number] [address] [place] [id number] 14 Dec, 2018 Other chronic pain G89.29 [place] [address] [facility] [id number] [address] [place] [id number] 10 Dec, 2018 Systolic congestive heart fa ilure, unspecified HF chronicity I50.20 and Ventricular tachycardia I47.2 [facility] [address] [facility] [id number] [address] [place] [id number] 08 Dec, 2018 [facility] [address] [place] [id number] [place] [id number] 17 Nov, 2018 Other chronic pain G89.29 [place] [address] [place] [id number] [place] [phone] Nov, Nausea with vomiting, unspec ified R11.2 [place] [address] [place] [id number] [place] [phone] Oct, [place] [address] [place] [id number] [place] [address] Oct, Other chronic pain G89.29 [place] [address] [place] [id number] [place] [phone] Oct, [place] [address] [id number] Oct, Arterial insufficiency of lo wer extremity I73.9 and High risk medication use Z79.899 [facility] [address] [address] Oct, Type 2 diabetes mellitus wit h foot ulcer E11.621 and Non-pressure chronic ulcer of other part of unspecified foot limited to breakdown of skin L97.501 [facility] [address] [address] Oct, Gangrene I96 [place] [address] [address] Sep, Other chronic pain G89.29 [place] [address] [address] Sep, Status post CVA Z86.73 ; Uns teady gait R26.81 and Frequent falls R29.6 [place] [address] [address] Sep, Nausea with vomiting, unspec ified R11.2 [facility] [address] [id number] [address] [place] [phone] Sep, Other chronic pain G89.29 [facility] [address] [id number] [address] [place] [phone] Aug, [facility] [address] [id number] [address] [place] [id number] Aug, Other chronic pain G89.29 [facility] [address] [id number] [address] [place] [phone] July, snf current use of ant icoagulant Z79.01 and Cerebrovascular accident (CVA) due to occlusion of other cerebral artery I63.59 [place] [address] [facility] [id number] [address] [place] [phone] July, Renal insufficiency N28.9 [facility] [address] [id number] [address] [place] [id number] July, Cerebrovascular accident (CV A) due to occlusion of other cerebral artery I63.59 and Unexplained weight loss R63.4 [place] [address] [id number] [address] [place] [phone] July, [facility] [address] [facility] [id number] [address] [place] [id number] July, [facility] [address] [facility] [id number] [address] [place] [id number] July, Unexplained weight loss R63. 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 4 [facility] [address] [facility] [id number] [address] [place] [phone] May, Nausea with vomiting, unspec ified R11.2 [facility] [address] [facility] [id number] [address] [place] [id number] May, Non-recurrent acute suppurat gulshan otitis media of right ear without spontaneous rupture of tympanic membrane H66.001 and Chronic anticoagulation Z79.01 [facility] [address] [facility] [id number] [address] [place] [phone] May, Other chronic pain G89.29 [facility] [address] [facility] [id number] [address] [place] [id number] Apr, Skin tear of right forearm w ithout complication, initial encounter S51.811A ; Skin tear of left forearm without complication, initial encounter S51.812A and Encounter for immunization Z23 [facility] [address] [facility] [id number] [address] [place] [id number] Apr, [place] [address] [facility] [id number] [address] [place] [id number] Apr, Diarrhea, unspecified R19.7 ; Nausea with vomiting, unspecified R11.2 and 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 [facility] [address] [facility] [id number] [address] [place] [id number] Apr, Other chronic pain G89.29 [facility] [address] [facility] [id number] [address] [place] [id number] Mar, Other chronic pain G89.29 [place] [address] [facility] [id number] [address] [place] [address] Mar, Other chronic pain G89.29 [facility] [address] [place] [id number] [address] [place] [phone] Mar, [facility] [address] [place] [id number] [address] [place] [id number] Mar, Other organ or system involv ement in systemic lupus erythematosus M32.19 [place] [address] [facility] [id number] [address] [place] [phone] Mar, Non-recurrent acute suppurat gulshan otitis media of right ear without spontaneous rupture of tympanic membrane H66.001 and Chronic anticoagulation Z79.01 [facility] [address] [id number] [address] [place] [id number] Feb, Sialoadenitis, unspecified K 11.20 [place] [address] [id number] [address] [place] [phone] Feb, Other chronic pain G89.29 [place] [address] [facility] [id number] [address] [place] [phone] Jan, snf current use of ant icoagulant therapy Z79.01 [place] [address] [facility] [id number] [address] [place] [phone] Jan, Other chronic pain G89.29 ; Lumbago with sciatica, right side M54.41 ; Other chronic pain G89.29 ; Tobacco abuse Z72.0 ; Tobacco abuse counseling Z71.6 ; Mixed hyperlipidemia E78.2 and snf 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 Z79.01 [place] [address] [facility] [id number] [address] [place] [id number] Jan, [place] [address] [facility] [id number] [address] [place] [phone] Dec, [facility] [address] [id number] [address] [place] [phone] Dec, [place] [address] [facility] [id number] [address] [place] [phone] Dec, [place] [address] [facility] [id number] [address] [place] [id number] Dec, Mixed hyperlipidemia E78.2 ; Other chronic [...] systemic lupus erythematosus M32.19 [facility] [address] [place] [id number] Dec, Right renal artery stenosis I70.1 ; Othe r organ or system involvement in systemic lupus erythematosus M32.19 ; Hepatitis C B19.20 ; Tobacco abuse Z72.0 and Weakness R53.1 [facility] [address] [place] [id number] Dec, [place] [address] [facility] [id number] [address] [place] [phone] Dec, [place] [address] [facility] [id number] [address] [place] [phone] Dec, Other organ or system involv ement in systemic lupus erythematosus M32.19 [facility] [address] [place] [id number] Dec, Right renal artery stenosis I70.1 ; Inju ry of right kidney, sequela S37.001S ; Tobacco abuse Z72.0 ; Systemic lupus erythematosus, unspecified SLE type, unspecified organ involvement status M32.9 ; Hepatitis C B19.20 and Candidiasis of female genitalia B37.3 [place] [address] [id number] [address] [place] [id number] Dec, Other organ or system involv ement in systemic lupus erythematosus M32.19 [place] [address] [id number] [address] [place] [id number] Dec, Other organ or system involv ement in systemic lupus erythematosus M32.19 [place] [address] [id number] [address] [place] [phone] Dec, [facility] [address] [id number] [address] [place] [phone] Nov, Other organ or system involv ement in systemic lupus erythematosus M32.19 [facility] [address] [id number] [address] [place] [phone] Oct, Other organ or system involv ement in systemic lupus erythematosus M32.19 [facility] [address] [id number] [address] [place] [id number] Sep, Other organ or system involv ement in systemic lupus erythematosus M32.19 [facility] [address] [id number] [address] [place] [id number] Aug, Anxiety F41.9 [facility] [address] [id number] [address] [place] [phone] Aug, Other organ or system involv ement in systemic lupus erythematosus M32.19 [facility] [address] [id number] [address] [place] [address] July, Medicare annual wellness vis it, initial Z00.00 ; Anxiety F41.9 ; HILARIO (obstructive sleep apnea) G47.33 ; Hepatitis C B19.20 ; Other chronic pain G89.29 ; Asymptomatic menopausal state Z78.0 and Episode of recurrent major depressive disorder, unspecified depression episode severity F33.9 [facility] [address] [id number] [address] [place] [id number] July, Anxiety F41.9 [facility] [address] [id number] [address] [place] [phone] July, Other organ or system involv ement in systemic lupus erythematosus M32.19 [facility] [address] [id number] [address] [place] [phone] July, [facility] [address] [id number] [address] [place] [id number] Jun, Other organ or system involv ement in systemic lupus erythematosus M32.19 ; BMI 40.0-44.9, adult Z68.41 ; Other chronic pain G89.29 and Controlled substance agreement signed Z79.899 [place] [address] [place] [id number] [place] [phone] May, Sciatica M54.30 [facility] [address] [facility] [id number] [address] [place] [id number] Apr, Sciatica M54.30 [facility] [address] [facility] [id number] [address] [place] [phone] Mar, Sciatica M54.30 [place] [address] [facility] [id number] [address] [place] [phone] Feb, Sciatica M54.30 [place] [address] [place] [id number] [place] [id number] 15 Jan, 2017 Sciatica M54.30 [place] [address] [place] [id number] [place] [id number] 14 Jan, 2017 Sciatica M54.30 [place] [address] [place] [id number] [place] [address] Dec, Sciatica M54.30 [place] [address] [place] [id number] [place] [id number] 18 Dec, 2016 Sciatica M54.30 [place] [address] [place] [id number] [place] [address] 29 Nov, 2016 Mixed hyperlipidemia E78.2 ; Chronic seasonal allergic rhinitis due to other allergen J30.2 and Family history of early CAD Z82.49 [place] [address] [facility] [id number] [address] [place] [phone] Nov, Sciatica M54.30 [place] [address] [facility] [id number] [address] [place] [id number] 18 Nov, 2016 Mixed hyperlipidemia E78.2 ; Chronic seasonal allergic rhinitis due to other allergen J30.2 ; Family history of early CAD Z82.49 ; Other chronic pain G89.29 and Pain in left shoulder M25.512 [facility] [address] [id number] [address] [place] [address] Nov, Acute pain of left shoulder M25.512 [facility] [address] [id number] [address] [place] [address] Oct, Sciatica M54.30 [facility] [address] [id number] [address] [place] [phone] Oct, [facility] [address] [id number] [address] [place] [id number] Sep, Sciatica M54.30 [place] [address] [facility] [id number] [address] [place] [phone] Sep, Acute pain of left shoulder M25.512 [facility] [address] [facility] [id number] [address] [place] [id number] Sep, Acute pain of left shoulder M25.512 [facility] [address] [facility] [id number] [address] [place] [address] Aug, Sciatica M54.30 [place] [address] [facility] [id number] [address] [place] [address] Aug, Sciatica M54.30 ; Tobacco ab use Z72.0 and Tobacco abuse counseling Z71.6 [facility] [address] [facility] [id number] [address] [place] [id number] Aug, Acute pain of left shoulder M25.512 [facility] [address] [facility] [id number] [address] [place] [id number] Aug, Contusion of right shoulder, initial encounter S40.011A ; Acute pain of left shoulder M25.512 and Shortness of breath R06.02 [facility] [address] [facility] [id number] [address] [place] [id number] Aug, Lumbago with sciatica, right side M54.41 [facility] [address] [facility] [id number] [address] [place] [phone] July, [facility] [address] [facility] [id number] [address] [place] [phone] July, Lumbago with sciatica, right side M54.41 [facility] [address] [facility] [id number] [address] [place] [phone] Jun, Lumbago with sciatica, right side M54.41 [facility] [address] [facility] [id number] [address] [place] [id number] May, Lumbago with sciatica, right side M54.41 [facility] [address] [place] [id number] [address] [place] [id number] May, Herpes zoster without compli cation B02.9 [facility] [address] [place] [id number] [address] [place] [id number] May, Back pain M54.9 and Acute ri ght-sided low back pain with right-sided sciatica M54.41 [facility] [address] [place] [id number] [address] [place] [id number] Apr, [facility] [address] [place] [id number] [address] [place] [phone] Apr, Lumbago with sciatica, right side M54.41 and Other chronic pain G89.29 [facility] [address] [id number] [address] [place] [phone] Apr, [facility] [address] [facility] [id number] [address] [place] [phone] Mar, [facility] [address] [facility] [id number] [address] [place] [phone] Mar, [facility] [address] [facility] [id number] [address] [place] [phone] Feb, [facility] [address] [facility] [id number] [address] [place] [phone] Jan, Urinary frequency R35.0 [facility] [address] [id number] [address] [place] [phone] Jan, [facility] [address] [id number] [address] [place] [phone] Dec, [facility] [address] [facility] [id number] [address] [place] [phone] Oct, [facility] [address] [facility] [id number] [address] [place] [phone] Sep, [facility] [address] [facility] [id number] [address] [place] [id number] Sep, Foreign body in left foot, i nitial encounter S90.852A [facility] [address] [facility] [id number] [address] [place] [id number] Aug, [facility] [address] [facility] [id number] [address] [place] [id number] July, Sciatica M54.30 [facility] [address] [id number] [address] [place] [id number] Jun, [facility] [address] [facility] [id number] [address] [place] [id number] May, Osteoarthritis M19.90 [facility] [address] [facility] [id number] [address] [place] [id number] May, [facility] [address] [facility] [id number] [address] [place] [id number] May, Pain in right hip M25.551 [facility] [address] [facility] [id number] [address] [place] [id number] May, Tinea corporis B35.4 [facility] [address] [facility] [id number] [address] [place] [id number] 10 Apr, 2015 Pain in right hip M25.551 [facility] [address] [facility] [id number] [address] [place] [id number] Mar, Pain in right hip M25.551 [facility] [address] [id number] [address] [place] [id number] Mar, [facility] [address] [id number] [address] [place] [id number] Feb, Pain in right hip M25.551 [facility] [address] [id number] [address] [place] [id number] Jan, Acute bronchitis, unspecifie d organism J20.9 and Cough R05 [facility] [address] [id number] [address] [place] [id number] Jan, Pain in right hip M25.551 [facility] [address] [id number] [address] [place] [id number] Dec, Pain in right hip M25.551 [facility] [address] [id number] [address] [place] [id number] Nov, Acute bronchitis 466.0 [facility] [address] [id number] [address] [place] [id number] Nov, [facility] [address] [id number] [address] [place] [id number] Oct, [facility] [address] [id number] [address] [place] [id number] Sep, [facility] [address] [id number] [address] [place] [id number] Aug, [facility] [address] [id number] [address] [place] [id number] July, [facility] [address] [id number] [address] [place] [id number] 14 Jun, 2014 [facility] [address] [id number] [address] [place] [phone] Jun, [facility] [address] [id number] [address] [place] [id number] 18 May, 2014 [facility] [address] [id number] [address] [place] [address], [place] [address] May, 2014 [facility] [address] [id number] [address] [place] [address], [place] [address] Apr, 2014 [facility] [address] [id number] [address] [place] [address], [place] [address] Apr, 2014 [facility] [address] [id number] [address] [place] [address], [place] [address] Apr, 2014 [facility] [address] [id number] [address] [place] [address], [place] [address] Apr, 2014 [facility] [address] [id number] [address] [place] [address], [place] [address] Apr, 2014 [facility] [address] [id number] [address] [place] [address], [place] [address] Apr, 2014 [facility] [address] [id number] [address] [place] [address], [place] [address] Mar, [facility] [address] [id number] [address] [place] [address], [place] [address] Mar, [facility] [address] [id number] [address] [place] [address], [place] [id number] 15 Feb, 2014 [facility] [address] [id number] [address] [place] [address], [place] [address] Feb, [facility] [address] [id number] [address] [place] [address], [place] [address] Feb, [facility] [address] [id number] [address] [place] [address], [place] [address] Dec, [facility] [address] [id number] [address] [place] [address], [place] [address] Dec, [facility] [address] [id number] [address] [place] [address], [place] [address] Nov, [facility] [address] [id number] [address] [place] [address], [place] [address] 17 Nov, 2013 [facility] [address] [id number] [address] [place] [address], [place] [address] Nov, [facility] [address] [id number] [address] [place] [address], [place] [address] Nov, [facility] [address] [id number] [address] [place] [address], [place] [id number] Sep, [facility] [address] [id number] [address] [place] [address], [place] [address] Sep, [facility] [address] [id number] [address] [place] [address], [place] [address] Sep, [facility] [address] [id number] [address] [place] [address], [place] [address] Sep, [facility] [address] [id number] [address] [place] [address], [place] [address] Aug, [facility] [address] [id number] [address] [place] [address], [place] [address] Aug, [facility] [address] [id number] [address] [place] [address], [place] [address] Aug, [facility] [address] [id number] [address] [place] [address], [place] [address] Aug, [facility] [address] [id number] [address] [place] [address], [place] [address] July, [facility] [address] [id number] [address] [place] [address], [place] [address] July, [facility] [address] [id number] [address] [place] [address], [place] [address] Jun, [facility] [address] [id number] [address] [place] [address], [place] [address] Jun, [facility] [address] [id number] [address] [place] [address], [place] [address] Jun, [facility] [address] [id number] [address] [place] [address], [place] [address] Jun, [facility] [address] [id number] [address] [place] [address], [place] [address] Jun, [facility] [address] [id number] [address] [place] [address], [place] [address] Jun, [facility] [address] [id number] [address] [place] [address], [place] [address] Jun, [facility] [address] [id number] [address] [place] [address], [place] [address] Jun, [facility] [address] [id number] [address] [place] [address], [place] [address] May, [facility] [address] [id number] [address] [place] [address], [place] [address] May, [facility] [address] [id number] [address] [place] [address], [place] [address] May, [facility] [address] [id number] [address] [place] [address], [place] [address] May, [facility] [address] [id number] [address] [place] [address], [place] [address] May, [facility] [address] [id number] [address] [place] [address], [place] [address] May, [facility] [address] [id number] [address] [place] [address], [place] [address] Apr, [facility] [address] [id number] [address] [place] [address], [place] [address] Apr, [facility] [address] [id number] [address] [place] [address], [place] [address] Apr, [facility] [address] [id number] [address] [place] [address], [place] [address] Apr, [facility] [address] [id number] [address] [place] [address], [place] [address] Mar, [facility] [address] [id number] [address] [place] [address], [place] [address] Mar, [facility] [address] [id number] [address] [place] [address], [place] [address] Mar, [facility] [address] [id number] [address] [place] [address], [place] [address] Mar, [facility] [address] [id number] [address] [place] [address], [place] [address] Mar, [facility] [address] [id number] [address] [place] [address], [place] [address] Mar, [facility] [address] [id number] [address] [place] [address], [place] [address] Feb, [facility] [address] [id number] [address] [place] [address], [place] [address] Feb, [facility] [address] [id number] [address] [place] [address], [place] [address] Feb, [facility] [address] [id number] [address] [place] [address], [place] [address] Feb, [facility] [address] [id number] [address] [place] [address], [place] [address] Feb, [facility] [address] [id number] [address] [place] [address], [place] [address] Feb, [facility] [address] [id number] [address] [place] [address], [place] [address] Feb, [facility] [address] [id number] [address] [place] [address], [place] [address] Feb, [facility] [address] [id number] [address] [place] [address], [place] [address] Feb, [facility] [address] [id number] [address] [place] [address], [place] [address] Feb, [facility] [address] [id number] [address] [place] [address], [place] [address] Feb, [facility] [address] [id number] [address] [place] [address], [place] [address] Feb, [facility] [address] [id number] [address] [place] [address], [place] [address] Jan, [facility] [address] [id number] [address] [place] [id number] Jan, [facility] [address] [id number] [address] [place] [address], [place] [address] Jan, [facility] [address] [id number] [address] [place] [id number] Jan, [facility] [address] [id number] [address] [place] [address], [place] [address] Jan, [facility] [address] [id number] [address] [place] [phone] Jan, [facility] [address] [id number] [address] [place] [id number] Jan, [facility] [address] [id number] [address] [place] [phone] Jan, [facility] [address] [id number] [address] [place] [id number] Jan, [facility] [address] [id number] [address] [place] [id number] Jan, [facility] [address] [id number] [address] [place] [address], [place] [address] Dec, [facility] [address] [id number] [address] [place] [id number] Dec, [facility] [address] [id number] [address] [place] [id number] Nov, [facility] [address] [id number] [address] [place] [address], [place] [address] 25 Nov, 2012 [facility] [address] [id number] [address] [place] [address], [place] [address] Nov, 2012 [facility] [address] [id number] [address] [place] [address], [place] [address] 05 Nov, 2012 [facility] [address] [id number] [address] [place] [address], [place] [address] Nov, [facility] [address] [id number] [address] [place] [address], [place] [address] Oct, [facility] [address] [id number] [address] [place] [address], [place] [address] Oct, [facility] [address] [id number] [address] [place] [address], [place] [address] Oct, [facility] [address] [id number] [address] [place] [address], [place] [address] Oct, [facility] [address] [id number] [address] [place] [address], [place] [address] Oct, [facility] [address] [id number] [address] [place] [address], [place] [address] Sep, [facility] [address] [id number] [address] [place] [address], [place] [address] Sep, [facility] [address] [id number] [address] [place] [address], [place] [address] Sep, [facility] [address] [id number] [address] [place] [address], [place] [address] Sep, [facility] [address] [id number] [address] [place] [address], [place] [address] Sep, [facility] [address] [id number] [address] [place] [address], [place] [address] Sep, [facility] [address] [id number] [address] [place] [address], [place] [address] Aug, [facility] [address] [id number] [address] [place] [address], [place] [address] 07 Aug, 2012 [facility] [address] [id number] [address] [place] [address], [place] [address] July, [facility] [address] [id number] [address] [place] [address], [place] [address] July, [facility] [address] [id number] [address] [place] [address], [place] [address] July, [facility] [address] [id number] [address] [place] [address], [place] [address] Jun, [facility] [address] [id number] [address] [place] [address], [place] [address] Jun, [facility] [address] [id number] [address] [place] [address], [place] [address] 16 Jun, 2012 [facility] [address] [id number] [address] [place] [address], [place] [address] Jun, [facility] [address] [id number] [address] [place] [address], [place] [address] May, [facility] [address] [id number] [address] [place] [address], [place] [address] May, [facility] [address] [id number] [address] [place] [address], [place] [address] Apr, [facility] [address] [id number] [address] [place] [address], [place] [address] Apr, [facility] [address] [id number] [address] [place] [address], [place] [address] Apr, [facility] [address] [id number] [address] [place] [address], [place] [address] Apr, [facility] [address] [id number] [address] [place] [address], [place] [address] Apr, [facility] [address] [id number] [address] [place] [address], [place] [address] Apr, [facility] [address] [id number] [address] [place] [address], [place] [id number] Apr, [facility] [address] [id number] [address] [place] [address], [place] [address] Apr, [facility] [address] [id number] [address] [place] [address], [place] [address] Mar, [facility] [address] [id number] [address] [place] [address], [place] [address] Mar, [facility] [address] [id number] [address] [place] [address], [place] [address] Mar, [facility] [address] [id number] [address] [place] [address], [place] [address] Mar, [facility] [address] [id number] [address] [place] [address], [place] [address] Jan, [facility] [address] [id number] [address] [place] [address], [place] [address] Jan, [facility] [address] [id number] [address] [place] [address], [place] [address] Jan, [facility] [address] [id number] [address] [place] [address], [place] [address] Jan, [facility] [address] [id number] [address] [place] [address], [place] [address] Jan, [facility] [address] [id number] [address] [place] [address], [place] [address] Dec, [facility] [address] [id number] [address] [place] [address], [place] [address] Dec, [facility] [address] [id number] [address] [place] [address], [place] [address] Dec, [facility] [address] [id number] [address] [place] [address], [place] [id number] Dec, [facility] [address] [id number] [address] [place] [address], [place] [address] Nov, [facility] [address] [id number] [address] [place] [address], [place] [address] Oct, [facility] [address] [id number] [address] [place] [address], [place] [id number] Oct, [facility] [address] [id number] [address] [place] [address], [place] [address] Oct, [facility] [address] [id number] [address] [place] [address], [place] [address] Oct, [facility] [address] [id number] [address] [place] [address], [place] [address] Oct, [facility] [address] [id number] [address] [place] [address], [place] [address] Sep, [facility] [address] [id number] [address] [place] [address], [place] [address] Sep, [facility] [address] [id number] [address] [place] [address], [place] [address] Aug, [facility] [address] [id number] [address] [place] [address], [place] [address] Aug, [facility] [address] [id number] [address] [place] [address], [place] [address] Aug, [facility] [address] [id number] [address] [place] [address], [place] [address] Aug, [facility] [address] [id number] [address] [place] [address], [place] [id number] July, [facility] [address] [id number] [address] [place] [address], [place] [id number] Jun, [facility] [address] [id number] [address] [place] [address], [place] [address] May, [facility] [address] [id number] [address] [place] [address], [place] [address] May, [facility] [address] [id number] [address] [place] [address], [place] [id number] May, [facility] [address] [id number] [address] [place] [address], [place] [id number] Mar, [facility] [address] [id number] [address] [place] [address], [place] [id number] Feb, [facility] [address] [id number] [address] [place] [address], [place] [id number] Feb, [facility] [address] [id number] [address] [place] [address], [place] [id number] Jan, [facility] [address] [id number] [address] [place] [address], [place] [address] Jan, [facility] [address] [id number] [address] [place] [address], [place] [id number] Jan, [facility] [address] [id number] [address] [place] [address], [place] [id number] Jan, [facility] [address] [id number] [address] [place] [address], [place] [id number] 30 Jan, 2010 [facility] [address] [id number] [address] [place] [address], [place] [address] Dec, [facility] [address] [id number] [address] [place] [address], [place] [address] Dec, [facility] [address] [id number] [address] [place] [address], [place] [address] Dec, [facility] [address] [id number] [address] [place] [address], [place] [id number] 18 May, 2009 [facility] [address] [id number] [address] [place] [address], [place] [id number] 15 May, 2009 [facility] [address] [id number] [address] [place] [address], [place] [id number] 17 Apr, 2009 [facility] [address] [id number] [address] [address] Jan, [facility] [address] [facility] [id number] [address] [place] [id number] Apr, IMMUNIZATIONS No Known Immunizations SOCIAL HISTORY [...] for cancer Hospitalization History surgeries Hospitalization History [facility] ER, heart- kidney- Stayed a [facility] ICU 12/2017 Hospitalization History [facility] ER 03[facility]2018 Hospitalization History [facility]- Stroke 2 weeks 06/2018 Hospitalization History ER 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
--- OUTSIDE RECORDS SUMMARY | 2019-10-19 08:25 | XMS REPORT ---
Author Author Eugenio LINDA [facility] Address [address] [place] [address] Care Team Providers Care Retail Warehouse Associate Name Role Phone EUGENIO LINDA Unavailable PROBLEMS Type Condition ICD9-CM Code YSL86-YD Code Onset Dates Condition S tatus SNOMED Code Problem Mixed hyperlipidemia E78.2 Active 821615414 Problem Anxiety F41.9 Active 92992266 Problem Other organ or system involvement in systemic julito pus erythematosus M32.19 Active 11891651 Problem Episode of recurrent major d epressive disorder, unspecified depression episode severity F33.9 Active 611908157 Problem Asymptomatic menopausal state Z78.0 Active 44147773 Problem Systemic lupus erythematosus , unspecified SLE type, unspecified organ involvement status M32.9 Active 89927204 Problem Right renal artery stenosis I70.1 Ac tive [id number] Problem Type 2 diabetes mellitus with foot ulcer E11.621 Active 553980448618918 Problem Lumbago with sciatica, right side M54.41 Active 035603499 Problem Non-pressure chronic ulcer o f other part of unspecified foot limited to breakdown of skin L97.501 Active 035680905 Problem Other chronic pain G89.29 Active 8 4506054 Problem Other chronic pain G89.29 Active 8 4700190 Problem Acute right-sided low back pain with right-sided sciatica M54.41 Active 604688166 Problem penitentiary current use of anticoagulant Z79.01 Active 807648641 Problem 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 23161287 Problem Frequent falls R29.6 Active 16499 2001 Problem HILARIO (obstructive sleep apnea) G47.33 Active 02903698 Problem Cerebrovascular accident (CV A) due to occlusion of other cerebral artery I63.59 Active 774831153 Problem Sciatica M54.30 Active 97403675 Problem Gangrene I96 Active 918480371 Problem Hepatitis C B19.20 Active 37649576 Problem Unsteady gait R26.81 Active 880991 008 Problem Seborrheic keratoses L82.1 Active 664649458 Problem Non-pressure chronic ulcer o f other part of unspecified foot limited to breakdown of skin L97.501 Active 644265553 Problem Urinary frequency R35.0 Active 16 5510709 Problem Necrosis I96 Active 385480179 Problem 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 Active 694721662 Problem Type 2 diabetes mellitus with foot ulcer E11.621 Active 571642222550724 Problem Arterial insufficiency of lower extremity I73.9 Active 798362308492286 Problem Ventricular tachycardia I47.2 Active 12704695 Problem Atherosclerosis of renal artery I70.1 Active 006141197726404 Problem terminal gauger 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 Z79 .01 Active 756011166 Problem 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 Active 216801321 Problem Chronic anticoagulation Z79.01 Active 011541750 Problem Sialoadenitis, unspecified K11.20 Act gulshan 41371057 Problem Current moderate episode of major depressive disorder without prior episode F32.1 Active 77980043 Problem Body mass index (BMI) 29.0-29.9, adult Z68.29 Active 704941980 Problem Systolic congestive heart failure, unspecified HF chronici ty I50.20 Active 86841020 Problem Hypertension I10 Active 0823913 3 Problem Cardiomyopathy of undetermined type I42.9 Active 26809076 ALLERGIES No Information ENCOUNTERS Encounter Location Date Diagnosis [place] [address] [place] [id number] [place] [address] Aug, [facility] [address] [place] [id number] [place] [address] July, Other chronic pain G89.29 [place] [address] [place] [id number] [place] [address] 30 Jun, 2019 Other chronic pain G89.29 [place] [address] [place] [id number] [place] [phone] 14 Jun, 2019 Frequent headaches R51 [place] [address] [place] [id number] [place] [address] Jun, Systolic congestive heart fa ilure, unspecified HF chronicity I50.20 ; Type 2 diabetes mellitus with foot ulcer E11.621 and Coronary artery disease of [place] artery of [place] heart with stable angina pectoris I25.118 [facility] [address] [address] Jun, Other chronic pain G89.29 [place] [address] [address] May, [place] [address] [address] May, Other chronic pain G89.29 [place] [address] [address] 20 Apr, 2019 Atherosclerosis of renal art taurus I70.1 ; Cardiomyopathy of undetermined type I42.9 and Ventricular tachycardia I47.2 [place] [address] [address] 14 Apr, 2019 [facility] [address] [address] 11 Apr, 2019 Non-intractable vomiting wit h nausea, unspecified vomiting type R11.2 [place] [address] [address] 03 Apr, 2019 Other chronic pain G89.29 [place] [address] [address] Mar, Other chronic pain G89.29 [place] [address] [address] Feb, Renal insufficiency N28.9 [place] [address] [address] Feb, [place] [address] [address] Feb, Frequent headaches R51 and H ypertension I10 [facility] [address] [id number] [address] [place] [address] 13 Feb, 2019 Other chronic pain G89.29 [facility] [address] [facility] [id number] [address] [place] [address] 27 Jan, 2019 Encounter for Medicare annua l wellness exam [...] episode F32.1 and Encounter for immunization Z23 [facility] [address] [facility] [id number] [address] [place] [phone] 22 Jan, 2019 [facility] [address] [facility] [id number] [address] [place] [address] 13 Jan, 2019 Other chronic pain G89.29 [facility] [address] [id number] [address] [place] [address] 28 Dec, 2018 [facility] [address] [facility] [id number] [address] [place] [phone] 15 Dec, 2018 Hypokalemia E87.6 [place] [address] [facility] [id number] [address] [place] [address] 15 Dec, 2018 Nausea R11.0 [facility] [address] [facility] [id number] [address] [place] [address] 14 Dec, 2018 Other chronic pain G89.29 [facility] [address] [facility] [id number] [address] [place] [address] 10 Dec, 2018 Systolic congestive heart fa ilure, unspecified HF chronicity I50.20 and Ventricular tachycardia I47.2 [place] [address] [facility] [id number] [address] [place] [address] 08 Dec, 2018 [place] [address] [address] Nov, Other chronic pain G89.29 [facility] [address] [address] Nov, Nausea with vomiting, unspec ified R11.2 [place] [address] [address] Oct, [facility] [address] [address] Oct, Other chronic pain G89.29 [place] [address] [address] Oct, [place] [address] [address] Oct, Arterial insufficiency of lo wer extremity I73.9 and High risk medication use Z79.899 [facility] [address] [address] Oct, Type 2 diabetes mellitus wit h foot ulcer E11.621 and Non-pressure chronic ulcer of other part of unspecified foot limited to breakdown of skin L97.501 [facility] [address] [address] Oct, Gangrene I96 [place] [address] [address] Sep, Other chronic pain G89.29 [place] [address] [address] Sep, Status post CVA Z86.73 ; Uns teady gait R26.81 and Frequent falls R29.6 [place] [address] [address] Sep, Nausea with vomiting, unspec ified R11.2 [place] [address] [address] Sep, Other chronic pain G89.29 [facility] [address] [id number] [address] [place] [address] Aug, [facility] [address] [id number] [address] [place] [address] Aug, Other chronic pain G89.29 [facility] [address] [id number] [address] [place] [address] July, terminal gauger current use of ant icoagulant Z79.01 and Cerebrovascular accident (CVA) due to occlusion of other cerebral artery I63.59 [facility] [address] [id number] [address] [place] [address] July, Renal insufficiency N28.9 [facility] [address] [id number] [address] [place] [address] July, Cerebrovascular accident (CV A) due to occlusion of other cerebral artery I63.59 and Unexplained weight loss R63.4 [facility] [address] [id number] [address] [place] [address] July, [facility] [address] [id number] [address] [place] [address] July, [facility] [address] [id number] [address] [place] [address] July, Unexplained weight loss R63. 4 and penitentiary current use of anticoagulant Z79.01 [facility] [address] [id number] [address] [place] [address] July, Other chronic pain G89.29 [facility] [address] [id number] [address] [place] [address] Jun, Other chronic pain G89.29 [facility] [address] [id number] [address] [place] [address] May, Unexplained weight loss R63. 4 [facility] [address] [id number] [address] [place] [address] May, Nausea with vomiting, unspec ified R11.2 [facility] [address] [facility] [id number] [address] [place] [address] May, Non-recurrent acute suppurat gulshan otitis media of right ear without spontaneous rupture of tympanic membrane H66.001 and Chronic anticoagulation Z79.01 [facility] [address] [facility] [id number] [address] [place] [address] May, Other chronic pain G89.29 [facility] [address] [facility] [id number] [address] [place] [address] 28 Apr, 2018 Skin tear of right forearm w ithout complication, initial encounter S51.811A ; Skin tear of left forearm without complication, initial encounter S51.812A and Encounter for immunization Z23 [facility] [address] [facility] [id number] [address] [place] [address] Apr, [facility] [address] [place] [id number] [place] [address] Apr, Diarrhea, unspecified R19.7 ; Nausea with vomiting, unspecified R11.2 and 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 [facility] [address] [facility] [id number] [address] [place] [address] 05 Apr, 2018 Other chronic pain G89.29 [facility] [address] [place] [id number] [place] [address] Mar, Other chronic pain G89.29 [facility] [address] [facility] [id number] [address] [place] [address] Mar, Other chronic pain G89.29 [facility] [address] [facility] [id number] [address] [place] [address] Mar, [facility] [address] [facility] [id number] [address] [place] [address] Mar, Other organ or system involv ement in systemic lupus erythematosus M32.19 [place] [address] [id number] [address] [place] [address] Mar, Non-recurrent acute suppurat gulshan otitis media of right ear without spontaneous rupture of tympanic membrane H66.001 and Chronic anticoagulation Z79.01 [facility] [address] [id number] [address] [place] [address] Feb, Sialoadenitis, unspecified K 11.20 [facility] [address] [facility] [id number] [address] [place] [address] Feb, Other chronic pain G89.29 [facility] [address] [facility] [id number] [address] [place] [phone] Jan, penitentiary current use of ant icoagulant therapy Z79.01 [place] [address] [facility] [id number] [address] [place] [address] Jan, Other chronic pain G89.29 ; Lumbago with sciatica, right side M54.41 ; Other chronic pain G89.29 ; Tobacco abuse Z72.0 ; Tobacco abuse counseling Z71.6 ; Mixed hyperlipidemia E78.2 and penitentiary 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 Z79.01 [facility] [address] [facility] [id number] [address] [place] [address] Jan, [facility] [address] [facility] [id number] [address] [place] [address] Dec, [facility] [address] [facility] [id number] [address] [place] [phone] Dec, [facility] [address] [facility] [id number] [address] [place] [address] Dec, [place] [address] [facility] [id number] [address] [place] [address] Dec, Mixed hyperlipidemia E78.2 ; Other chronic [...] erythematosus M32.19 [facility] [address] [place] [id number] Dec, Right renal artery stenosis I70.1 ; Othe r organ or system involvement in systemic lupus erythematosus M32.19 ; Hepatitis C B19.20 ; Tobacco abuse Z72.0 and Weakness R53.1 [facility] [address] [place] [id number] Dec, [facility] [address] [id number] [address] [place] [address] Dec, [facility] [address] [id number] [address] [place] [address] Dec, Other organ or system involv ement in systemic lupus erythematosus M32.19 [facility] [employer] [address] [place] [id number] Dec, Right renal artery stenosis I70.1 ; Inju ry of right kidney, sequela S37.001S ; Tobacco abuse Z72.0 ; Systemic lupus erythematosus, unspecified SLE type, unspecified organ involvement status M32.9 ; Hepatitis C B19.20 and Candidiasis of female genitalia B37.3 [facility] [address] [id number] [address] [place] [address] Dec, Other organ or system involv ement in systemic lupus erythematosus M32.19 [facility] [address] [id number] [address] [place] [address] Dec, Other organ or system involv ement in systemic lupus erythematosus M32.19 [facility] [address] [id number] [address] [place] [address] Dec, [facility] [address] [id number] [address] [place] [address] 04 Sep, 2018 Other organ or system involv ement in systemic lupus erythematosus M32.19 [facility] [address] [id number] [address] [place] [address] Oct, Other organ or system involv ement in systemic lupus erythematosus M32.19 [facility] [address] [id number] [address] [place] [address] Sep, Other organ or system involv ement in systemic lupus erythematosus M32.19 [facility] [address] [id number] [address] [place] [address] Aug, Anxiety F41.9 [facility] [address] [id number] [address] [place] [address] Aug, Other organ or system involv ement in systemic lupus erythematosus M32.19 [facility] [address] [id number] [address] [place] [address] July, Medicare annual wellness vis it, initial Z00.00 ; Anxiety F41.9 ; HILARIO (obstructive sleep apnea) G47.33 ; Hepatitis C B19.20 ; Other chronic pain G89.29 ; Asymptomatic menopausal state Z78.0 and Episode of recurrent major depressive disorder, unspecified depression episode severity F33.9 [facility] [address] [id number] [address] [place] [address] July, Anxiety F41.9 [facility] [address] [id number] [address] [place] [address] July, Other organ or system involv ement in systemic lupus erythematosus M32.19 [facility] [address] [id number] [address] [place] [address] July, [facility] [address] [id number] [address] [place] [address] Jun, Other organ or system involv ement in systemic lupus erythematosus M32.19 ; BMI 40.0-44.9, adult Z68.41 ; Other chronic pain G89.29 and Controlled substance agreement signed Z79.899 [facility] [address] [facility] [id number] [address] [place] [address] May, Sciatica M54.30 [facility] [address] [facility] [id number] [address] [place] [address] Apr, Sciatica M54.30 [facility] [address] [id number] [address] [place] [address] Mar, Sciatica M54.30 [facility] [address] [id number] [address] [place] [address] Feb, Sciatica M54.30 [facility] [address] [id number] [address] [place] [address] Jan, Sciatica M54.30 [facility] [address] [facility] [id number] [address] [place] [address] 14 Jan, 2017 Sciatica M54.30 [facility] [address] [facility] [id number] [address] [place] [address] Dec, Sciatica M54.30 [facility] [address] [facility] [id number] [address] [place] [address] 18 Dec, 2016 Sciatica M54.30 [facility] [address] [facility] [id number] [address] [place] [address] 29 Nov, 2016 Mixed hyperlipidemia E78.2 ; Chronic seasonal allergic rhinitis due to other allergen J30.2 and Family history of early CAD Z82.49 [facility] [address] [facility] [id number] [address] [place] [address] 21 Nov, 2016 Sciatica M54.30 [facility] [address] [facility] [id number] [address] [place] [address] 18 Nov, 2016 Mixed hyperlipidemia E78.2 ; Chronic seasonal allergic rhinitis due to other allergen J30.2 ; Family history of early CAD Z82.49 ; Other chronic pain G89.29 and Pain in left shoulder M25.512 [facility] [address] [facility] [id number] [address] [place] [address] Nov, Acute pain of left shoulder M25.512 [facility] [address] [id number] [address] [place] [address] Oct, Sciatica M54.30 [facility] [address] [id number] [address] [place] [address] Oct, [facility] [address] [facility] [id number] [address] [place] [address] Sep, Sciatica M54.30 [facility] [address] [id number] [address] [place] [address] Sep, Acute pain of left shoulder M25.512 [facility] [address] [facility] [id number] [address] [place] [address] Sep, Acute pain of left shoulder M25.512 [place] [address] [facility] [id number] [address] [place] [address] Aug, Sciatica M54.30 [facility] [address] [facility] [id number] [address] [place] [address] Aug, Sciatica M54.30 ; Tobacco ab use Z72.0 and Tobacco abuse counseling Z71.6 [facility] [address] [facility] [id number] [address] [place] [address] Aug, Acute pain of left shoulder M25.512 [facility] [address] [facility] [id number] [address] [place] [address] Aug, Contusion of right shoulder, initial encounter S40.011A ; Acute pain of left shoulder M25.512 and Shortness of breath R06.02 [facility] [address] [facility] [id number] [address] [place] [phone] Aug, Lumbago with sciatica, right side M54.41 [facility] [address] [facility] [id number] [address] [place] [address] July, [facility] [address] [facility] [id number] [address] [place] [address] July, Lumbago with sciatica, right side M54.41 [facility] [address] [place] [id number] [place] [address] Jun, Lumbago with sciatica, right side M54.41 [facility] [address] [place] [id number] [place] [address] May, Lumbago with sciatica, right side M54.41 [facility] [address] [place] [id number] [place] [address] May, Herpes zoster without compli cation B02.9 [facility] [address] [place] [id number] [place] [address] May, Back pain M54.9 and Acute ri ght-sided low back pain with right-sided sciatica M54.41 [place] [address] [address] Apr, [place] [address] [address] Apr, Lumbago with sciatica, right side M54.41 and Other chronic pain G89.29 [place] [address] [place] [id number] [place] [address] Apr, [place] [address] [address] Mar, [facility] [address] [place] [id number] [place] [address] Mar, [place] [address] [phone] Feb, [facility] [address] [place] [id number] [address] [place] [phone] Jan, Urinary frequency R35.0 [place] [address] [place] [id number] [place] [phone] Jan, [facility] [address] [id number] [address] [place] [phone] Dec, [facility] [address] [id number] [address] [place] [phone] Oct, [facility] [address] [id number] [address] [place] [phone] Sep, [facility] [address] [id number] [address] [place] [phone] Sep, Foreign body in left foot, i nitial encounter S90.852A [facility] [address] [id number] [address] [place] [id number] Aug, [facility] [address] [id number] [address] [place] [phone] July, Sciatica M54.30 [facility] [address] [id number] [address] [place] [phone] Jun, [facility] [address] [id number] [address] [place] [phone] May, Osteoarthritis M19.90 [facility] [address] [id number] [address] [place] [phone] May, [facility] [address] [facility] [id number] [address] [place] [phone] May, Pain in right hip M25.551 [facility] [address] [id number] [address] [place] [id number] May, Tinea corporis B35.4 [facility] [address] [id number] [address] [place] [address] 10 Apr, 2015 Pain in right hip M25.551 [facility] [address] [id number] [address] [place] [address] Mar, Pain in right hip M25.551 [facility] [address] [id number] [address] [place] [address] Mar, [facility] [address] [id number] [address] [place] [address] Feb, Pain in right hip M25.551 [facility] [address] [id number] [address] [place] [address] Jan, Acute bronchitis, unspecifie d organism J20.9 and Cough R05 [facility] [address] [id number] [address] [place] [address] Jan, Pain in right hip M25.551 [facility] [address] [id number] [address] [place] [address] Dec, Pain in right hip M25.551 [facility] [address] [id number] [address] [place] [address] Nov, Acute bronchitis 466.0 [facility] [address] [id number] [address] [place] [address] Nov, [facility] [address] [id number] [address] [place] [address] Oct, [facility] [address] [id number] [address] [place] [address] Sep, [facility] [address] [id number] [address] [place] [address] Aug, [facility] [address] [id number] [address] [place] [address] July, [facility] [address] [id number] [address] [place] [address] Jun, [facility] [address] [id number] [address] [place] [address] Jun, [facility] [address] [id number] [address] [place] [address] May, [facility] [address] [id number] [address] [place] [phone] May, [facility] [address] [id number] [address] [place] [address], [place] [address] Apr, 2014 [facility] [address] [id number] [address] [place] [address], [place] [address] Apr, 2014 [facility] [address] [id number] [address] [place] [address], [place] [address] Apr, 2014 [facility] [address] [id number] [address] [place] [address], [place] [address] Apr, 2014 [facility] [address] [id number] [address] [place] [address], [place] [address] Apr, 2014 [facility] [address] [id number] [address] [place] [address], [place] [address] Apr, 2014 [facility] [address] [id number] [address] [place] [address], [place] [address] Mar, [facility] [address] [id number] [address] [place] [address], [place] [address] Mar, [facility] [address] [id number] [address] [place] [address], [place] [address] Feb, [facility] [address] [id number] [address] [place] [address], [place] [address] Feb, [facility] [address] [id number] [address] [place] [address], [place] [address] Feb, [facility] [address] [id number] [address] [place] [address] Dec, [facility] [address] [id number] [address] [place] [address], [place] [address] Dec, [facility] [address] [id number] [address] [place] [address], [place] [address] 17 Nov, 2013 [facility] [address] [id number] [address] [place] [id number] 17 Nov, 2013 [facility] [address] [id number] [address] [place] [address], [place] [address] Nov, [facility] [address] [id number] [address] [place] [address], [place] [address] Nov, [facility] [address] [id number] [address] [place] [address], [place] [address] Sep, [facility] [address] [id number] [address] [place] [address], [place] [address] Sep, [facility] [address] [id number] [address] [place] [address], [place] [address] Sep, [facility] [address] [id number] [address] [place] [address], [place] [address] Sep, [facility] [address] [id number] [address] [place] [address], [place] [address] Aug, [facility] [address] [id number] [address] [place] [address], [place] [address] Aug, [facility] [address] [id number] [address] [place] [address], [place] [address] Aug, [facility] [address] [id number] [address] [place] [address], [place] [address] Aug, [facility] [address] [id number] [address] [place] [address], [place] [address] July, [facility] [address] [id number] [address] [place] [address], [place] [address] July, [facility] [address] [id number] [address] [place] [address], [place] [address] Jun, [facility] [address] [id number] [address] [place] [address], [place] [address] Jun, [facility] [address] [id number] [address] [place] [address], [place] [address] Jun, [facility] [address] [id number] [address] [place] [address], [place] [address] Jun, [facility] [address] [id number] [facility] [address] Jun, [facility] [address] [id number] [address] [place] [address], [place] [address] Jun, [facility] [address] [id number] [facility] [address] Jun, [facility] [address] [id number] [address] [place] [address], [place] [address] Jun, [facility] [address] [id number] [facility] [address] May, [facility] [address] [id number] [address] [place] [address], [place] [address] May, [facility] [address] [id number] [address] [place] [address], [place] [address] May, [facility] [address] [id number] [address] [place] [address], [place] [address] May, [facility] [address] [id number] [address] [place] [address], [place] [address] May, [facility] [address] [id number] [address] [place] [address], [place] [address] May, [facility] [address] [id number] [address] [place] [address], [place] [address] Apr, [facility] [address] [id number] [address] [place] [address], [place] [address] Apr, [facility] [address] [id number] [address] [place] [address], [place] [address] Apr, [facility] [address] [id number] [address] [place] [address], [place] [address] Apr, [facility] [address] [id number] [address] [place] [address], [place] [address] Mar, [facility] [address] [id number] [address] [place] [address], [place] [address] Mar, [facility] [address] [id number] [address] [place] [address], [place] [address] Mar, [facility] [address] [id number] [address] [place] [address], [place] [address] Mar, [facility] [address] [id number] [address] [place] [address], [place] [address] Mar, [facility] [address] [id number] [address] [place] [address], [place] [address] Mar, [facility] [address] [id number] [address] [place] [address], [place] [address] Feb, [facility] [address] [id number] [address] [place] [address], [place] [address] Feb, [facility] [address] [id number] [address] [place] [address], [place] [address] Feb, [facility] [address] [id number] [address] [place] [address], [place] [address] Feb, [facility] [address] [id number] [address] [place] [address], [place] [address] Feb, [facility] [address] [id number] [address] [place] [address], [place] [address] Feb, [facility] [address] [id number] [address] [place] [address], [place] [address] Feb, [facility] [address] [id number] [address] [place] [address], [place] [address] Feb, [facility] [address] [id number] [address] [place] [address], [place] [address] Feb, [facility] [address] [id number] [address] [place] [address], [place] [address] Feb, [facility] [address] [id number] [address] [place] [address], [place] [address] Feb, [facility] [address] [id number] [address] [place] [address], [place] [address] Feb, [facility] [address] [id number] [address] [place] [address], [place] [address] Jan, [facility] [address] [id number] [address] [place] [address], [place] [address] Jan, [facility] [address] [id number] [address] [place] [address], [place] [address] Jan, [facility] [address] [id number] [address] [place] [address], [place] [address] Jan, [facility] [address] [id number] [address] [place] [address], [place] [address] Jan, [facility] [address] [id number] [address] [place] [address], [place] [address] Jan, [facility] [address] [id number] [address] [place] [address], [place] [address] Jan, [facility] [address] [id number] [address] [place] [address], [place] [address] Jan, [facility] [address] [id number] [address] [place] [address] Jan, [facility] [address] [id number] [address] [place] [address], [place] [address] Jan, [facility] [address] [id number] [address] [place] [address] Dec, [facility] [address] [id number] [address] [place] [address], [place] [address] Dec, [facility] [address] [id number] [address] [place] [address], [place] [address] Nov, [facility] [address] [id number] [address] [place] [address], [place] [address] Nov, [facility] [address] [id number] [address] [place] [address], [place] [address] Nov, [facility] [address] [id number] [address] [place] [address], [place] [address] 05 Nov, 2012 [facility] [address] [id number] [address] [place] [address], [place] [address] Nov, [facility] [address] [id number] [address] [place] [address], [place] [address] Oct, [facility] [address] [id number] [address] [place] [address], [place] [address] Oct, [facility] [address] [id number] [address] [place] [address], [place] [address] Oct, [facility] [address] [id number] [address] [place] [address], [place] [address] Oct, [facility] [address] [id number] [address] [place] [address], [place] [address] Oct, [facility] [address] [id number] [address] [place] [address], [place] [address] Sep, [facility] [address] [id number] [address] [place] [address], [place] [address] Sep, [facility] [address] [id number] [address] [place] [address], [place] [address] Sep, [facility] [address] [id number] [address] [place] [address], [place] [address] Sep, [facility] [address] [id number] [address] [place] [address], [place] [address] Sep, [facility] [address] [id number] [address] [place] [address], [place] [address] Sep, [facility] [address] [id number] [address] [place] [address], [place] [address] Aug, [facility] [address] [id number] [address] [place] [address], [place] [address] Aug, [facility] [address] [id number] [address] [place] [address], [place] [address] July, [facility] [address] [id number] [address] [place] [address], [place] [address] July, [facility] [address] [id number] [address] [place] [address], [place] [address] July, [facility] [address] [id number] [address] [place] [address], [place] [address] Jun, [facility] [address] [id number] [address] [place] [address], [place] [address] Jun, [facility] [address] [id number] [address] [place] [address], [place] [address] Jun, [facility] [address] [id number] [address] [place] [address], [place] [address] Jun, [facility] [address] [id number] [address] [place] [address], [place] [address] May, [facility] [address] [id number] [address] [place] [address], [place] [address] May, [facility] [address] [id number] [address] [place] [address], [place] [address] Apr, [facility] [address] [id number] [address] [place] [address], [place] [address] Apr, [facility] [address] [id number] [address] [place] [address], [place] [address] Apr, [facility] [address] [id number] [address] [place] [address], [place] [address] Apr, [facility] [address] [id number] [address] [place] [address], [place] [address] 13 Apr, 2012 [facility] [address] [id number] [address] [place] [address], [place] [address] Apr, [facility] [address] [id number] [address] [place] [id number] Apr, [facility] [address] [id number] [address] [place] [address], [place] [address] Apr, [facility] [address] [id number] [address] [place] [address], [place] [address] Mar, [facility] [address] [id number] [address] [place] [address], [place] [address] Mar, [facility] [address] [id number] [address] [place] [address], [place] [address] Mar, [facility] [address] [id number] [address] [place] [address], [place] [address] Mar, [facility] [address] [id number] [address] [place] [address], [place] [address] Jan, [facility] [address] [id number] [address] [place] [address], [place] [address] Jan, [facility] [address] [id number] [address] [place] [address], [place] [address] Jan, [facility] [address] [id number] [address] [place] [address], [place] [address] Jan, [facility] [address] [id number] [address] [place] [address], [place] [address] Jan, [facility] [address] [id number] [address] [place] [address], [place] [address] Dec, [facility] [address] [id number] [address] [place] [address], [place] [address] Dec, [facility] [address] [id number] [address] [place] [address], [place] [address] Dec, [facility] [address] [id number] [address] [place] [address], [place] [address] Dec, [facility] [address] [id number] [address] [place] [address], [place] [address] Nov, [facility] [address] [id number] [address] [place] [address], [place] [address] Oct, [facility] [address] [id number] [address] [place] [address], [place] [address] Oct, [facility] [address] [id number] [address] [place] [address], [place] [address] Oct, [facility] [address] [id number] [address] [place] [address], [place] [address] Oct, [facility] [address] [id number] [address] [place] [address], [place] [address] Oct, [facility] [address] [id number] [address] [place] [address], [place] [address] Sep, [facility] [address] [id number] [address] [place] [address], [place] [address] Sep, [facility] [address] [id number] [address] [place] [address], [place] [address] Aug, [facility] [address] [id number] [address] [place] [address], [place] [address] Aug, [facility] [address] [id number] [address] [place] [address], [place] [address] Aug, [facility] [address] [id number] [address] [place] [address], [place] [address] Aug, [facility] [address] [id number] [address] [place] [address], [place] [address] July, [facility] [address] [id number] [address] [place] [address], [place] [address] Jun, [facility] [address] [id number] [address] [place] [address], [place] [address] May, [facility] [address] [id number] [address] [place] [address], [place] [address] May, [facility] [address] [id number] [address] [place] [address], [place] [address] May, [facility] [address] [id number] [address] [place] [address], [place] [address] 30 Mar, 2011 [facility] [address] [id number] [address] [place] [address], [place] [address] Feb, [facility] [address] [id number] [address] [place] [address], [place] [address] Feb, [facility] [address] [id number] [address] [place] [address], [place] [address] Jan, [facility] [address] [id number] [address] [place] [address], [place] [address] Jan, [facility] [address] [id number] [address] [place] [address], [place] [address] Jan, [facility] [address] [id number] [address] [place] [address], [place] [address] Jan, [facility] [address] [id number] [address] [place] [address], [place] [address] Jan, [facility] [address] [id number] [address] [place] [address], [place] [id number] Dec, [facility] [address] [id number] [address] [place] [address], [place] [address] Dec, [facility] [address] [id number] [address] [place] [id number] Dec, [facility] [address] [id number] [address] [place] [id number] May, [facility] [address] [id number] [address] [place] [address], [place] [id number] 15 May, 2009 [facility] [address] [id number] [address] [place] [address], [place] [id number] 17 Apr, 2009 [facility] [address] [id number] [address] [place] [address], [place] [address] Jan, [facility] [address] [id number] [address] [place] [address] 11 Apr, 2008 IMMUNIZATIONS No Known Immunizations [...] for cancer Hospitalization History surgeries Hospitalization History [facility] ER, heart- kidney- Stayed a [facility] ICU 12/2017 Hospitalization History [facility] 03[facility]2018 Hospitalization History [facility]- Stroke 2 weeks 06/2018 Hospitalization History ER 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
--- OUTSIDE RECORDS SUMMARY | 2019-10-19 08:25 | XMS REPORT ---
Author Author Eugenio LINDA [facility] Address [address] [place] [address] Care Team Providers Care Nut Grinder Name Role Phone EUGENIO LINDA Unavailable PROBLEMS Type Condition ICD9-CM Code VEY98-CA Code Onset Dates Condition S tatus SNOMED Code Problem Mixed hyperlipidemia E78.2 Active 374092988 Problem Anxiety F41.9 Active 50044192 Problem Other organ or system involvement in systemic julito pus erythematosus M32.19 Active 25207522 Problem Episode of recurrent major d epressive disorder, unspecified depression episode severity F33.9 Active 049907879 Problem Asymptomatic menopausal state Z78.0 Active 65467014 Problem Systemic lupus erythematosus , unspecified SLE type, unspecified organ involvement status M32.9 Active 40242437 Problem Right renal artery stenosis I70.1 Ac tive [id number] Problem Type 2 diabetes mellitus with foot ulcer E11.621 Active 879579473181969 Problem Lumbago with sciatica, right side M54.41 Active 227254675 Problem Non-pressure chronic ulcer o f other part of unspecified foot limited to breakdown of skin L97.501 Active 139007497 Problem Other chronic pain G89.29 Active 8 6169515 Problem Other chronic pain G89.29 Active 8 9635566 Problem Acute right-sided low back pain with right-sided sciatica M54.41 Active 376041905 Problem care home current use of anticoagulant Z79.01 Active 048422385 Problem 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 78674749 Problem Frequent falls R29.6 Active 12279 2001 Problem HILARIO (obstructive sleep apnea) G47.33 Active 88765482 Problem Cerebrovascular accident (CV A) due to occlusion of other cerebral artery I63.59 Active 001790265 Problem Sciatica M54.30 Active 07666928 Problem Gangrene I96 Active 643987332 Problem Hepatitis C B19.20 Active 39161748 Problem Unsteady gait R26.81 Active 349091 008 Problem Seborrheic keratoses L82.1 Active 157356641 Problem Non-pressure chronic ulcer o f other part of unspecified foot limited to breakdown of skin L97.501 Active 958942050 Problem Urinary frequency R35.0 Active 16 9334340 Problem Necrosis I96 Active 157292609 Problem 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 Active 394506316 Problem Type 2 diabetes mellitus with foot ulcer E11.621 Active 792372856566315 Problem Arterial insufficiency of lower extremity I73.9 Active 824976585866671 Problem Ventricular tachycardia I47.2 Active 65282228 Problem Atherosclerosis of renal artery I70.1 Active 527097945425875 Problem 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 Active 460552595 Problem 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 Active 563454503 Problem Chronic anticoagulation Z79.01 Active 014249740 Problem Sialoadenitis, unspecified K11.20 Act gulshan 28521707 Problem Current moderate episode of major depressive disorder without prior episode F32.1 Active 29658239 Problem Body mass index (BMI) 29.0-29.9, adult Z68.29 Active 980882926 Problem Systolic congestive heart failure, unspecified HF chronici ty I50.20 Active 81363853 Problem Hypertension I10 Active 9963824 3 Problem Cardiomyopathy of undetermined type I42.9 Active 19461595 ALLERGIES No Information ENCOUNTERS Encounter Location Date Diagnosis [place] [id number] [place] [phone] 10 Aug, 2019 [facility] [address] [facility] [id number] [address] [place] [id number] 30 Jun, 2019 Other chronic pain G89.29 [place] [address] [place] [id number] [address] [place] [id number] 14 Jun, 2019 Frequent headaches R51 [place] [address] [facility] [id number] [address] [place] [phone] 03 Jun, 2019 Systolic congestive heart fa ilure, unspecified HF chronicity I50.20 ; Type 2 diabetes mellitus with foot ulcer E11.621 and Coronary artery disease of point [place] artery of [place] heart with stable angina pectoris I25.118 [facility] [address] [address] Jun, Other chronic pain G89.29 [facility] [address] [address] 16 May, 2019 [facility] [address] [address] May, Other chronic pain G89.29 [facility] [address] [address] 20 Apr, 2019 Atherosclerosis of renal art taurus I70.1 ; Cardiomyopathy of undetermined type I42.9 [address] I47.2 [facility] [address] [address] 14 Apr, 2019 [facility] [address] [address] Apr, Non-intractable vomiting wit h nausea, unspecified vomiting type R11.2 [place] [address] [address] 03 Apr, 2019 Other chronic pain G89.29 [facility] [address] [address] Mar, Other chronic pain G89.29 [place] [address] [address] Feb, Renal insufficiency N28.9 [facility] [address] [address] Feb, [place] [address] [address] Feb, Frequent headaches R51 and H ypertension I10 [place] [address] [address] Feb, Other chronic pain G89.29 [facility] [address] [id number] [address] [place] [id number] 27 Jan, 2019 Encounter for Medicare rigoberto kennedy wellness exam Z00.00 ; Arterial insufficiency of [...] episode F32.1 and Encounter for immunization Z23 [place] [address] [facility] [id number] [address] [place] [id number] 22 Jan, 2019 [place] [address] [facility] [id number] [address] [place] [phone] 13 Jan, 2019 Other chronic pain G89.29 [place] [address] [facility] [id number] [address] [place] [phone] 28 Dec, 2018 [place] [address] [facility] [id number] [address] [place] [id number] 15 Dec, [address] [facility] [address] [facility] [id number] [address] [place] [phone] 15 Dec, 2018 Nausea R11.0 [place] [address] [facility] [id number] [address] [place] [id number] 14 Dec, 2018 Other chronic pain G89.29 [facility] [address] [id number] [address] [place] [id number] 10 Dec, 2018 Systolic congestive heart fa ilure, unspecified HF chronicity I50.20 and Ventricular tachycardia I47.2 [facility] [address] [id number] [address] [place] [id number] 08 Dec, 2018 [facility] [address] [facility] [id number] [address] [place] [phone] 17 Nov, 2018 Other chronic pain G89.29 [place] [id number] [address] [place] [phone] Nov, Nausea with vomiting, unspec ified R11.2 [place] [address] [place] [id number] [address] [place] [phone] Oct, [place] [address] [place] [id number] [place] [phone] Oct, Other chronic pain G89.29 [place] [address] [address] Oct, [place] [address] [address] Oct, Arterial insufficiency of lo wer extremity I73.9 and High risk medication use Z79.899 [facility] [address] [address] Oct, Type 2 diabetes mellitus wit h foot ulcer E11.621 and Non-pressure chronic ulcer of other part of unspecified foot limited to breakdown of skin L97.501 [facility] [address] [address] Oct, Gangrene I96 [place] [address] [place] [id number] [place] [phone] Sep, Other chronic pain G89.29 [place] [address] [address] Sep, Status post CVA Z86.73 ; Uns teady gait R26.81 and Frequent falls R29.6 [place] [address] [address] Sep, Nausea with vomiting, unspec ified R11.2 [place] [address] [place] [id number] [address] [place] [phone] Sep, Other chronic pain G89.29 [place] [address] [address] Aug, [facility] [address] [facility] [id number] [address] [place] [phone] Aug, Other chronic pain G89.29 [place] [address] [facility] [id number] [address] [place] [phone] July, care home current use of ant icoagulant Z79.01 and Cerebrovascular accident (CVA) due to occlusion of other cerebral artery I63.59 [place] [address] [id number] [address] [place] [phone] July, Renal insufficiency N28.9 [place] [address] [facility] [id number] [address] [place] [phone] July, Cerebrovascular accident (CV A) due to occlusion of other cerebral artery I63.59 and Unexplained weight loss R63.4 [place] [address] [facility] [id number] [address] [place] [phone] July, [place] [address] [facility] [id number] [address] [place] [phone] July, [place] [address] [facility] [id number] [address] [place] [phone] July, Unexplained weight loss R63. 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 4 [place] [address] [facility] [id number] [address] [place] [phone] May, Nausea with vomiting, unspec ified R11.2 [place] [address] [facility] [id number] [address] [place] [id number] May, Non-recurrent acute suppurat gulshan otitis media of right ear without spontaneous rupture of tympanic membrane H66.001 and Chronic anticoagulation Z79.01 [facility] [address] [id number] [address] [place] [id number] May, Other chronic pain G89.29 [facility] [address] [id number] [address] [place] [id number] Apr, Skin tear of right forearm w ithout complication, initial encounter S51.811A ; Skin tear of left forearm without complication, initial encounter S51.812A and Encounter for immunization Z23 [facility] [address] [id number] [address] [place] [phone] Apr, 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 [address] [id number] [address] [place] [phone] Apr, Other chronic pain G89.29 [facility] [address] [id number] [address] [place] [id number] Mar, Other chronic pain G89.29 [facility] [address] [id number] [address] [place] [phone] Mar, Other chronic pain G89.29 [facility] [address] [id number] [address] [place] [id number] Mar, [facility] [address] [id number] [address] [place] [phone] Mar, Other organ or system involv ement in systemic lupus erythematosus M32.19 [facility] [address] [id number] [address] [place] [phone] Mar, Non-recurrent acute suppurat gulshan otitis media of right ear without spontaneous rupture of tympanic membrane H66.001 and Chronic anticoagulation Z79.01 [facility] [address] [facility] [id number] [address] [place] [phone] 30 Feb, 2018 Sialoadenitis, unspecified K 11.20 [facility] [address] [facility] [id number] [address] [place] [id number] 07 Feb, 2018 Other chronic pain G89.29 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 [address] [facility] [id number] [address] [place] [phone] Jan, [facility] [address] [facility] [id number] [address] [place] [phone] Dec, [facility] [address] [facility] [id number] [address] [place] [phone] Dec, [facility] [address] [facility] [id number] [address] [place] [phone] Dec, [place] [address] [facility] [id number] [address] [place] [phone] Dec, Mixed hyperlipidemia E78.2 ; Other chronic [...] systemic lupus erythematosus M32.19 [facility] [address] [place] [id number] Dec, Right renal artery stenosis I70.1 ; Othe r organ or system involvement in systemic lupus erythematosus M32.19 ; Hepatitis C B19.20 ; Tobacco abuse Z72.0 and Weakness R53.1 [facility] [address] [place] [id number] Dec, [facility] [address] [id number] [address] [place] [phone] Dec, [facility] [address] [id number] [address] [place] [phone] Dec, Other organ or system involv ement in systemic lupus erythematosus M32.19 [facility] [address] [place] [id number] Dec, Right renal artery stenosis I70.1 ; Inju ry of right kidney, sequela S37.001S ; Tobacco abuse Z72.0 ; Systemic lupus erythematosus, unspecified SLE type, unspecified organ involvement status M32.9 ; Hepatitis C B19.20 and Candidiasis of female genitalia B37.3 [facility] [address] [id number] [address] [place] [phone] Dec, Other organ or system involv ement in systemic lupus erythematosus M32.19 [facility] [address] [id number] [address] [place] [id number] Dec, Other organ or system involv ement in systemic lupus erythematosus M32.19 [facility] [address] [id number] [address] [place] [phone] Dec, [facility] [address] [id number] [address] [place] [phone] Nov, Other organ or system involv ement in systemic lupus erythematosus M32.19 [facility] [address] [id number] [address] [place] [phone] Oct, Other organ or system involv ement in systemic lupus erythematosus M32.19 [facility] [address] [id number] [address] [place] [id number] Sep, Other organ or system involv ement in systemic lupus erythematosus M32.19 [facility] [address] [id number] [address] [place] [phone] Aug, Anxiety F41.9 [facility] [address] [id number] [address] [place] [phone] Aug, Other organ or system involv ement in systemic lupus erythematosus M32.19 [facility] [address] [facility] [id number] [address] [place] [phone] July, Medicare annual wellness vis it, initial Z00.00 ; Anxiety F41.9 ; HILARIO (obstructive sleep apnea) G47.33 ; Hepatitis C B19.20 ; Other chronic pain G89.29 ; Asymptomatic menopausal state Z78.0 and Episode of recurrent major depressive disorder, unspecified depression episode severity F33.9 [facility] [address] [facility] [id number] [address] [place] [phone] July, Anxiety F41.9 [facility] [address] [facility] [id number] [address] [place] [phone] July, Other organ or system involv ement in systemic lupus erythematosus M32.19 [facility] [address] [facility] [id number] [address] [place] [phone] July, [facility] [address] [id number] [address] [place] [phone] Jun, Other organ or system involv ement in systemic lupus erythematosus M32.19 ; BMI 40.0-44.9, adult Z68.41 ; Other chronic pain G89.29 and Controlled substance agreement signed Z79.899 [facility] [address] [id number] [address] [place] [phone] May, Sciatica M54.30 [facility] [address] [id number] [address] [place] [phone] Apr, Sciatica M54.30 [facility] [address] [id number] [address] [place] [address] Mar, Sciatica M54.30 [facility] [address] [id number] [address] [place] [phone] Feb, Sciatica M54.30 [facility] [address] [id number] [address] [place] [phone] 15 Jan, [address] [facility] [address] [id number] [address] [place] [phone] Jan, Sciatica M54.30 [facility] [address] [id number] [address] [place] [id number] 19 Dec, 2016 Sciatica M54.30 [place] [address] [id number] [address] [place] [phone] 18 Dec, [address] [facility] [address] [id number] [address] [place] [phone] 29 Nov, 2016 Mixed hyperlipidemia E78.2 ; Chronic seasonal allergic rhinitis due to other allergen J30.2 and Family history of early CAD Z82.49 [place] [address] [id number] [address] [place] [phone] Nov, Sciatica M54.30 [facility] [address] [id number] [address] [place] [phone] 18 Nov, 2016 Mixed hyperlipidemia E78.2 ; Chronic seasonal allergic rhinitis due to other allergen J30.2 ; Family history of early CAD Z82.49 ; Other chronic pain G89.29 and Pain in left shoulder M25.512 [facility] [address] [id number] [address] [place] [address] 11 Nov, 2016 Acute pain of left shoulder M25.512 [place] [address] [id number] [address] [place] [address] Oct, Sciatica M54.30 [facility] [address] [id number] [address] [place] [phone] Oct, [facility] [address] [facility] [id number] [address] [place] [address] Sep, Sciatica M54.30 [facility] [address] [id number] [address] [place] [address] Sep, Acute pain of left shoulder M25.512 [facility] [address] [id number] [address] [place] [id number] Sep, Acute pain of left shoulder M25.512 [facility] [address] [facility] [id number] [address] [place] [address] Aug, Sciatica M54.30 [facility] [address] [facility] [id number] [address] [place] [phone] Aug, Sciatica M54.30 ; Tobacco ab use Z72.0 and Tobacco abuse counseling Z71.6 [facility] [address] [facility] [id number] [address] [place] [phone] Aug, Acute pain of left shoulder M25.512 [facility] [address] [facility] [id number] [address] [place] [phone] Aug, Contusion of right shoulder, initial encounter S40.011A ; Acute pain of left shoulder M25.512 and Shortness of breath R06.02 [facility] [address] [facility] [id number] [address] [place] [phone] Aug, Lumbago with sciatica, right side M54.41 [facility] [address] [facility] [id number] [address] [place] [phone] July, [facility] [address] [facility] [id number] [address] [place] [phone] July, Lumbago with sciatica, right side M54.41 [facility] [address] [facility] [id number] [address] [place] [address] Jun, Lumbago with sciatica, right side M54.41 [facility] [address] [place] [id number] [address] [place] [id number] May, Lumbago with sciatica, right side M54.41 [facility] [address] [place] [id number] [address] [place] [phone] May, Herpes zoster without compli cation B02.9 [facility] [address] [facility] [id number] [address] [place] [phone] May, Back pain M54.9 and Acute ri ght-sided low back pain with right-sided sciatica M54.41 [facility] [address] [place] [id number] [place] [phone] Apr, [facility] [id number] [place] [phone] Apr, Lumbago with sciatica, right side M54.41 and Other chronic pain G89.29 [facility] [address] [id number] Apr, [facility] [address] [id number] [address] [place] [id number] Mar, [facility] [id number] [address] [place] [phone] Mar, [facility] [id number] [address] [place] [phone] Feb, [facility] [address] [facility] [id number] [address] [place] [phone] Jan, Urinary frequency R35.0 [facility] [address] [id number] [address] [place] [phone] Jan, [facility] [id number] [address] [place] [phone] Dec, [facility] [address] [id number] [address] [place] [phone] Oct, [facility] [address] [id number] [address] [place] [phone] Sep, [facility] [address] [id number] [address] [place] [phone] Sep, Foreign body in left foot, i nitial encounter S90.852A [facility] [address] [id number] [address] [place] [phone] Aug, [facility] [address] [id number] [address] [place] [phone] July, Sciatica M54.30 [facility] [address] [id number] [address] [place] [phone] Jun, [facility] [facility] [address] [id number] [address] [place] [id number] May, Osteoarthritis M19.90 [facility] [address] [id number] [address] [place] [id number] May, [facility] [address] [id number] [address] [place] [id number] May, Pain in right hip M25.551 [facility] [address] [id number] [address] [place] [id number] May, Tinea corporis B35.4 [facility] [address] [id number] [address] [place] [id number] 10 Apr, 2015 Pain in right hip M25.551 [facility] [address] [id number] [address] [place] [id number] Mar, Pain in right hip M25.551 [facility] [address] [id number] [address] [place] [id number] Mar, [facility] [address] [id number] [address] [place] [id number] Feb, Pain in right hip M25.551 [facility] [address] [id number] [address] [place] [phone] Jan, Acute bronchitis, unspecifie d organism J20.[address] [facility] [address] [id number] [address] [place] [id number] Jan, Pain in right hip M25.551 [facility] [address] [id number] [address] [place] [id number] Dec, Pain in right hip M25.551 [facility] [address] [id number] [address] [place] [id number] Nov, Acute bronchitis 466.0 [facility] [address] [id number] [address] [place] [id number] Nov, [facility] [address] [id number] [address] [place] [phone] Oct, [facility] [address] [id number] [address] [place] [id number] Sep, [facility] [address] [id number] [address] [place] [id number] Aug, [facility] [address] [id number] [address] [place] [phone] July, [facility] [address] [id number] [address] [place] [id number] [address], [address] [facility] [address] [id number] [address] [place] [id number] Jun, [facility] [address] [id number] [address] [place] [phone] May, [facility] [address] [id number] [address] [place] [phone] May, [facility] [address] [id number] [address] [place] [phone] Apr, [facility] [address] [id number] [address] [place] [address], [place] [address] 17 Apr, 2014 [facility] [address] [id number] [address] [place] [address], [place] [address] Apr, 2014 [facility] [address] [id number] [address] [place] [address], [place] [address] Apr, 2014 [facility] [address] [id number] [address] [place] [address], [place] [address] Apr, 2014 [facility] [address] [id number] [address] [place] [address], [place] [address] Apr, [facility] [address] [id number] [address] [place] [address], [place] [address] Mar, [facility] [address] [id number] [address] [place] [address], [place] [address] Mar, [facility] [address] [id number] [address] [place] [address], [place] [address] Feb, [facility] [address] [id number] [address] [place] [address], [place] [address] Feb, [facility] [address] [id number] [address] [place] [address], [place] [address] Feb, [facility] [address] [id number] [address] [place] [address], [place] [address] Dec, [facility] [address] [id number] [address] [place] [address], [place] [address] Dec, [facility] [address] [id number] [address] [place] [address], [place] [address] Nov, [facility] [address] [id number] [address] [place] [address], [place] [address] Nov, [facility] [address] [id number] [address] [place] [address], [place] [address] Nov, [facility] [address] [id number] [address] [place] [address], [place] [address] Nov, [facility] [address] [id number] [address] [place] [address], [place] [address] Sep, [facility] [address] [id number] [address] [place] [address], [place] [address] Sep, [facility] [address] [id number] [address] [place] [address], [place] [address] Sep, [facility] [address] [id number] [address] [place] [address], [place] [address] Sep, [facility] [address] [id number] [address] [place] [address], [place] [address] Aug, [facility] [address] [id number] [address] [place] [address], [place] [address] Aug, [facility] [address] [id number] [address] [place] [address], [place] [address] Aug, [facility] [address] [id number] [address] [place] [address], [place] [address] Aug, [facility] [address] [id number] [address] [place] [address], [place] [address] July, [facility] [address] [id number] [address] [place] [address], [place] [address] July, [facility] [address] [id number] [address] [place] [address], [place] [address] Jun, [facility] [address] [id number] [address] [place] [address], [place] [address] Jun, [facility] [address] [id number] [address] [place] [address], [place] [address] Jun, [facility] [address] [id number] [address] [place] [address], [place] [address] Jun, [facility] [address] [id number] [address] [place] [address], [place] [address] Jun, [facility] [address] [id number] [facility] [place] [address] Jun, [facility] [address] [id number] [address] [place] [address], [place] [address] Jun, [facility] [address] [id number] [facility] [place] [address] Jun, [facility] [address] [id number] [address] [place] [address], [place] [address] May, [facility] [address] [id number] [address] [place] [address], [place] [address] May, [facility] [address] [id number] [address] [place] [address], [place] [address] May, [facility] [address] [id number] [address] [place] [address], [place] [address] May, [facility] [address] [id number] [address] [place] [address], [place] [address] May, [facility] [address] [id number] [address] [place] [address], [place] [address] May, [facility] [address] [id number] [address] [place] [address], [place] [address] Apr, [facility] [address] [id number] [address] [place] [address], [place] [address] Apr, [facility] [address] [id number] [address] [place] [address], [place] [address] Apr, [facility] [address] [id number] [address] [place] [address], [place] [address] Apr, [facility] [address] [id number] [address] [place] [address], [place] [address] Mar, [facility] [address] [id number] [address] [place] [address], [place] [address] Mar, [facility] [address] [id number] [address] [place] [address], [place] [address] 13 Mar, 2013 [facility] [address] [id number] [address] [place] [address], [place] [address] 13 Mar, 2013 [facility] [address] [id number] [address] [place] [address], [place] [address] Mar, [facility] [address] [id number] [address] [place] [address], [place] [address] Mar, [facility] [address] [id number] [address] [place] [address], [place] [address] Feb, [facility] [address] [id number] [address] [place] [address], [place] [address] Feb, [facility] [address] [id number] [address] [place] [address], [place] [address] Feb, [facility] [address] [id number] [address] [place] [address], [place] [address] Feb, [facility] [address] [id number] [address] [place] [address], [place] [address] Feb, [facility] [address] [id number] [address] [place] [address], [place] [address] Feb, [facility] [address] [id number] [address] [place] [address], [place] [address] Feb, [facility] [address] [id number] [address] [place] [address], [place] [address] Feb, [facility] [address] [id number] [address] [place] [address], [place] [address] Feb, [facility] [address] [id number] [address] [place] [address], [place] [address] Feb, [facility] [address] [id number] [address] [place] [address], [place] [address] Feb, [facility] [address] [id number] [address] [place] [address], [place] [address] Feb, [facility] [address] [id number] [address] [place] [address], [place] [address] Jan, [facility] [address] [id number] [address] [place] [address], [place] [address] Jan, [facility] [address] [id number] [address] [place] [address], [place] [address] Jan, [facility] [address] [id number] [address] [place] [address], [place] [address] Jan, [facility] [address] [id number] [address] [place] [address], [place] [address] Jan, [facility] [address] [id number] [address] [place] [address], [place] [address] Jan, [facility] [address] [id number] [address] [place] [address], [place] [address] Jan, [facility] [address] [id number] [address] [place] [address], [place] [address] Jan, [facility] [address] [id number] [address] [place] [address], [place] [address] Jan, [facility] [address] [id number] [address] [place] [address], [place] [address] Jan, [facility] [address] [id number] [address] [place] [address], [place] [address] Dec, [facility] [address] [id number] [address] [place] [address], [place] [address] Dec, [facility] [address] [id number] [address] [place] [address], [place] [address] Nov, [facility] [address] [id number] [address] [place] [address], [place] [address] Nov, [facility] [address] [id number] [address] [place] [address], [place] [address] Nov, [facility] [address] [id number] [address] [place] [address], [place] [address] Nov, [facility] [address] [id number] [address] [place] [address], [place] [address] Nov, [facility] [address] [id number] [address] [place] [address], [place] [address] Oct, [facility] [address] [id number] [address] [place] [address], [place] [address] Oct, [facility] [address] [id number] [address] [place] [address], [place] [address] Oct, [facility] [address] [id number] [address] [place] [address], [place] [address] Oct, [facility] [address] [id number] [address] [place] [address], [place] [address] Oct, [facility] [address] [id number] [address] [place] [address], [place] [address] Sep, [facility] [address] [id number] [address] [place] [address], [place] [address] Sep, [facility] [address] [id number] [address] [place] [address], [place] [address] Sep, [facility] [address] [id number] [address] [place] [address], [place] [address] Sep, [facility] [address] [id number] [address] [place] [address], [place] [address] Sep, [facility] [address] [id number] [address] [place] [address], [place] [address] Sep, [facility] [address] [id number] [address] [place] [address], [place] [address] Aug, [facility] [address] [id number] [address] [place] [address], [place] [address] Aug, [facility] [address] [id number] [address] [place] [address], [place] [address] July, [facility] [address] [id number] [address] [place] [address], [place] [address] July, [facility] [address] [id number] [address] [place] [address], [place] [address] July, [facility] [address] [id number] [address] [place] [address], [place] [address] Jun, [facility] [address] [id number] [address] [place] [address], [place] [address] Jun, [facility] [address] [id number] [address] [place] [address], [place] [address] Jun, [facility] [address] [id number] [address] [place] [address], [place] [address] Jun, [facility] [address] [id number] [address] [place] [address], [place] [address] May, [facility] [address] [id number] [address] [place] [address], [place] [address] May, [facility] [address] [id number] [address] [place] [address], [place] [address] Apr, [facility] [address] [id number] [address] [place] [address], [place] [address] Apr, [facility] [address] [id number] [address] [place] [address] Apr, [facility] [address] [id number] [address] [place] [address], [place] [address] Apr, [facility] [address] [id number] [address] [place] [address] Apr, [facility] [address] [id number] [address] [place] [address], [place] [address] Apr, [facility] [address] [id number] [address] [place] [id number] Apr, [facility] [address] [id number] [address] [place] [address] Apr, [facility] [address] [id number] [address] [place] [address], [place] [address] Mar, [facility] [address] [id number] [address] [place] [address], [place] [address] Mar, [facility] [address] [id number] [address] [place] [address], [place] [address] Mar, [facility] [address] [id number] [address] [place] [address], [place] [address] Mar, [facility] [address] [id number] [address] [place] [address], [place] [address] Jan, [facility] [address] [id number] [address] [place] [address], [place] [address] Jan, [facility] [address] [id number] [address] [place] [address], [place] [address] Jan, [facility] [address] [id number] [address] [place] [address], [place] [address] Jan, [facility] [address] [id number] [address] [place] [address], [place] [address] Jan, [facility] [address] [id number] [address] [place] [address], [place] [address] Dec, [facility] [address] [id number] [address] [place] [address], [place] [address] Dec, [facility] [address] [id number] [address] [place] [address] Dec, [facility] [address] [id number] [address] [place] [address], [place] [address] Dec, [facility] [address] [id number] [address] [place] [address], [place] [address] Nov, [facility] [address] [id number] [address] [place] [address], [place] [address] Oct, [facility] [address] [id number] [address] [place] [address], [place] [address] Oct, [facility] [address] [id number] [address] [place] [address], [place] [address] Oct, [facility] [address] [id number] [address] [place] [address], [place] [address] Oct, [facility] [address] [id number] [address] [place] [address], [place] [address] Oct, [facility] [address] [id number] [address] [place] [address], [place] [address] Sep, [facility] [address] [id number] [address] [place] [address], [place] [address] Sep, [facility] [address] [id number] [address] [place] [address], [place] [address] Aug, [facility] [address] [id number] [address] [place] [address], [place] [address] Aug, [facility] [address] [id number] [address] [place] [address], [place] [address] Aug, [facility] [address] [id number] [address] [place] [address], [place] [address] Aug, [facility] [address] [id number] [address] [place] [address], [place] [address] July, [facility] [address] [id number] [address] [place] [address], [place] [address] Jun, [facility] [address] [id number] [address] [place] [address], [place] [address] May, [facility] [address] [id number] [address] [place] [address], [place] [address] May, [facility] [address] [id number] [address] [place] [address], [place] [address] May, [facility] [address] [id number] [address] [place] [address], [place] [address] Mar, [facility] [address] [id number] [address] [place] [id number] Feb, [facility] [address] [id number] [address] [place] [phone] Feb, [facility] [address] [id number] [address] [place] [id number] Jan, [facility] [address] [id number] [address] [place] [phone] Jan, [facility] [address] [id number] [address] [place] [phone] Jan, [facility] [address] [id number] [address] [place] [phone] Jan, [facility] [address] [id number] [address] [place] [phone] Jan, [facility] [address] [id number] [address] [place] [id number] Dec, [facility] [address] [id number] [address] [place] [id number] Dec, [facility] [address] [id number] [address] [place] [phone] Dec, [facility] [address] [id number] [address] [place] [id number] May, [facility] [address] [id number] [address] [place] [phone] May, [facility] [address] [id number] [address] [place] [phone] Apr, [facility] [address] [id number] [address] [place] [phone] Jan, [facility] [address] [id number] [address] [place] [phone] Apr, IMMUNIZATIONS No Known Immunizations SOCIAL HISTORY [...] for cancer Hospitalization History surgeries Hospitalization History [facility] ER, heart- kidney- Stayed a [facility] ICU 12/2017 Hospitalization History [facility] ER 03/2018 Hospitalization History [facility]- Stroke 2 weeks 06/2018 Hospitalization History ER 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
--- OUTSIDE RECORDS SUMMARY | 2019-10-19 08:25 | XMS REPORT ---
Author Author Eugenio LINDA [facility] Address [address] [place] [address] Care Team Providers Care Resistor Coater Name Role Phone EUGENIO LINDA Unavailable PROBLEMS Type Condition ICD9-CM Code AOB93-GM Code Onset Dates Condition S tatus SNOMED Code Problem Mixed hyperlipidemia E78.2 Active 692737735 Problem Anxiety F41.9 Active 89498256 Problem Other organ or system involvement in systemic julito pus erythematosus M32.19 Active 33878906 Problem Episode of recurrent major d epressive disorder, unspecified depression episode severity F33.9 Active 545094053 Problem Asymptomatic menopausal state Z78.0 Active 55371327 Problem Systemic lupus erythematosus , unspecified SLE type, unspecified organ involvement status M32.9 Active 24271819 Problem Right renal artery stenosis I70.1 Ac tive 11076142876012121 Problem Type 2 diabetes mellitus with foot ulcer E11.621 Active 186327664275908 Problem Lumbago with sciatica, right side M54.41 Active 834983622 Problem Non-pressure chronic ulcer o f other part of unspecified foot limited to breakdown of skin L97.501 Active 580096165 Problem Other chronic pain G89.29 Active 8 7622545 Problem Other chronic pain G89.29 Active 8 6776110 Problem Acute right-sided low back pain with right-sided sciatica M54.41 Active 144429989 Problem intermediate current use of anticoagulant Z79.01 Active 070123970 Problem 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 31381898 Problem Frequent falls R29.6 Active 91247 2001 Problem HILARIO (obstructive sleep apnea) G47.33 Active 13609909 Problem Cerebrovascular accident (CV A) due to occlusion of other cerebral artery I63.59 Active 804036997 Problem Sciatica M54.30 Active 35516221 Problem Gangrene I96 Active 090977027 Problem Hepatitis C B19.20 Active 91839233 Problem Unsteady gait R26.81 Active 795523 008 Problem Seborrheic keratoses L82.1 Active 304807060 Problem Non-pressure chronic ulcer o f other part of unspecified foot limited to breakdown of skin L97.501 Active 446558127 Problem Urinary frequency R35.0 Active 16 3459737 Problem Necrosis I96 Active 032671930 Problem 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 Active 937306858 Problem Type 2 diabetes mellitus with foot ulcer E11.621 Active 608041059477208 Problem Arterial insufficiency of lower extremity I73.9 Active 903301624765624 Problem Ventricular tachycardia I47.2 Active 92377490 Problem Atherosclerosis of renal artery I70.1 Active 472141220906783 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 Active 061808100 Problem 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 Active 820799814 Problem Chronic anticoagulation Z79.01 Active 533316150 Problem Sialoadenitis, unspecified K11.20 Act gulshan 47768023 Problem Current moderate episode of major depressive disorder without prior episode F32.1 Active 01510994 Problem Body mass index (BMI) 29.0-29.9, adult Z68.29 Active 772474709 Problem Systolic congestive heart failure, unspecified HF chronici ty I50.20 Active 12050934 Problem Hypertension I10 Active 7888152 3 Problem Cardiomyopathy of undetermined type I42.9 Active 60359403 ALLERGIES No Information ENCOUNTERS Encounter Location Date Diagnosis [place] [address] [place] [id number] [place] [address] Aug, [facility] [address] [id number] [address] [place] [address] July, Other chronic pain G89.29 [place] [address] [place] [id number] [place] [address] 30 Jun, 2019 Other chronic pain G89.29 [place] [address] [place] [id number] [place] [address] 14 Jun, 2019 Frequent headaches R51 [place] [address] [place] [id number] [place] [address] Jun, Systolic congestive heart fa ilure, unspecified HF chronicity I50.20 ; Type 2 diabetes mellitus with foot ulcer E11.621 and Coronary artery disease of jena artery of jena heart with stable angina pectoris I25.118 [facility] [address] [address] Jun, Other chronic pain G89.29 [place] [address] [address] May, [place] [address] [address] May, Other chronic pain G89.29 [place] [address] [address] 20 Apr, 2019 Atherosclerosis of renal art taurus I70.1 ; Cardiomyopathy of undetermined type I42.9 and Ventricular tachycardia I47.2 [place] [address] [address] 14 Apr, 2019 [facility] [address] [address] 11 Apr, 2019 Non-intractable vomiting wit h nausea, unspecified vomiting type R11.2 [place] [address] [address] 03 Apr, 2019 Other chronic pain G89.29 [place] [address] [address] Mar, Other chronic pain G89.29 [place] [address] [address] Feb, Renal insufficiency N28.9 [place] [address] [address] Feb, [place] [address] [address] Feb, Frequent headaches R51 and H ypertension I10 [facility] [address] [id number] [address] [place] [address] 13 Feb, 2019 Other chronic pain G89.29 [facility] [address] [facility] [id number] [address] [place] [address] 27 Jan, 2019 Encounter for Medicare annua [...] episode F32.1 and Encounter for immunization Z23 [facility] [address] [facility] [id number] [address] [place] [address] 22 Jan, 2019 [facility] [address] [facility] [id number] [address] [place] [address] 13 Jan, 2019 Other chronic pain G89.29 [facility] [address] [id number] [address] [place] [address] 28 Dec, 2018 [facility] [address] [facility] [id number] [address] [place] [address] 15 Dec, 2018 Hypokalemia E87.6 [place] [address] [facility] [id number] [address] [place] [address] 15 Dec, 2018 Nausea R11.0 [facility] [address] [facility] [id number] [address] [place] [address] 14 Dec, 2018 Other chronic pain G89.29 [facility] [address] [facility] [id number] [address] [place] [address] 10 Dec, 2018 Systolic congestive heart fa ilure, unspecified HF chronicity I50.20 and Ventricular tachycardia I47.2 [place] [address] [facility] [id number] [address] [place] [address] 08 Dec, 2018 [place] [address] [address] Nov, Other chronic pain G89.29 [facility] [address] [address] Nov, Nausea with vomiting, unspec ified R11.2 [place] [address] [address] Oct, [facility] [address] [address] Oct, Other chronic pain G89.29 [place] [address] [address] Oct, [place] [address] [address] Oct, Arterial insufficiency of lo wer extremity I73.9 and High risk medication use Z79.899 [facility] [address] [address] Oct, Type 2 diabetes mellitus wit h foot ulcer E11.621 and Non-pressure chronic ulcer of other part of unspecified foot limited to breakdown of skin L97.501 [facility] [address] [address] Oct, Gangrene I96 [place] [address] [address] Sep, Other chronic pain G89.29 [place] [address] [address] Sep, Status post CVA Z86.73 ; Uns teady gait R26.81 and Frequent falls R29.6 [place] [address] [address] Sep, Nausea with vomiting, unspec ified R11.2 [place] [address] [address] Sep, Other chronic pain G89.29 [facility] [address] [id number] [address] [place] [address] Aug, [facility] [address] [id number] [address] [place] [address] Aug, Other chronic pain G89.29 [facility] [address] [id number] [address] [place] [address] July, 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 and Cerebrovascular accident (CVA) due to occlusion of other cerebral artery I63.59 [facility] [address] [id number] [address] [place] [address] July, Renal insufficiency N28.9 [facility] [address] [id number] [address] [place] [address] July, Cerebrovascular accident (CV A) due to occlusion of other cerebral artery I63.59 and Unexplained weight loss R63.4 [facility] [address] [id number] [address] [place] [address] July, [facility] [address] [id number] [address] [place] [address] July, [facility] [address] [id number] [address] [place] [address] July, Unexplained weight loss R63. 4 and intermediate current use of anticoagulant Z79.01 [facility] [address] [id number] [address] [place] [address] July, Other chronic pain G89.29 [facility] [address] [id number] [address] [place] [address] Jun, Other chronic pain G89.29 [facility] [address] [id number] [address] [place] [address] May, Unexplained weight loss R63. 4 [facility] [address] [id number] [address] [place] [address] May, Nausea with vomiting, unspec ified R11.2 [facility] [address] [facility] [id number] [address] [place] [address] May, Non-recurrent acute suppurat gulshan otitis media of right ear without spontaneous rupture of tympanic membrane H66.001 and Chronic anticoagulation Z79.01 [facility] [address] [facility] [id number] [address] [place] [address] May, Other chronic pain G89.29 [facility] [address] [facility] [id number] [address] [place] [address] 28 Apr, 2018 Skin tear of right forearm w ithout complication, initial encounter S51.811A ; Skin tear of left forearm without complication, initial encounter S51.812A and Encounter for immunization Z23 [facility] [address] [facility] [id number] [address] [place] [address] Apr, [facility] [address] [place] [id number] [place] [address] Apr, Diarrhea, unspecified R19.7 ; Nausea with vomiting, unspecified R11.2 and 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 [facility] [address] [facility] [id number] [address] [place] [address] 05 Apr, 2018 Other chronic pain G89.29 [facility] [address] [place] [id number] [address] [place] [address] Mar, Other chronic pain G89.29 [facility] [address] [facility] [id number] [address] [place] [address] Mar, Other chronic pain G89.29 [facility] [address] [facility] [id number] [address] [place] [address] Mar, [facility] [address] [facility] [id number] [address] [place] [address] Mar, Other organ or system involv ement in systemic lupus erythematosus M32.19 [place] [address] [id number] [address] [place] [address] Mar, Non-recurrent acute suppurat gulshan otitis media of right ear without spontaneous rupture of tympanic membrane H66.001 and Chronic anticoagulation Z79.01 [facility] [address] [id number] [address] [place] [address] Feb, Sialoadenitis, unspecified K 11.20 [facility] [address] [facility] [id number] [address] [place] [address] Feb, Other chronic pain G89.29 [facility] [address] [facility] [id number] [address] [place] [address] Jan, intermediate current use of ant icoagulant therapy Z79.01 [place] [address] [facility] [id number] [address] [place] [address] Jan, Other chronic pain G89.29 ; Lumbago with sciatica, right side M54.41 ; Other chronic pain G89.29 ; Tobacco abuse Z72.0 ; Tobacco abuse counseling Z71.6 ; Mixed hyperlipidemia E78.2 and intermediate 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 Z79.01 [facility] [address] [facility] [id number] [address] [place] [address] Jan, [facility] [address] [facility] [id number] [address] [place] [address] Dec, [facility] [address] [facility] [id number] [address] [place] [address] Dec, [facility] [address] [facility] [id number] [address] [place] [address] Dec, [place] [address] [facility] [id number] [address] [place] [address] Dec, Mixed hyperlipidemia E78.2 ; Other chronic [...] [facility] [employer] [address] [place] [id number] Dec, Right renal artery stenosis I70.1 ; Othe r organ or system involvement in systemic lupus erythematosus M32.19 ; Hepatitis C B19.20 ; Tobacco abuse Z72.0 and Weakness R53.1 [facility] [employer] [address] [place] [id number] Dec, [facility] [address] [id number] [address] [place] [address] Dec, [facility] [address] [id number] [address] [place] [address] Dec, Other organ or system involv ement in systemic lupus erythematosus M32.19 [facility] [employer] [address] [place] [id number] Dec, Right renal artery stenosis I70.1 ; Inju ry of right kidney, sequela S37.001S ; Tobacco abuse Z72.0 ; Systemic lupus erythematosus, unspecified SLE type, unspecified organ involvement status M32.9 ; Hepatitis C B19.20 and Candidiasis of female genitalia B37.3 [facility] [address] [id number] [address] [place] [address] Dec, Other organ or system involv ement in systemic lupus erythematosus M32.19 [facility] [address] [id number] [address] [place] [address] Dec, Other organ or system involv ement in systemic lupus erythematosus M32.19 [facility] [address] [id number] [address] [place] [address] Dec, [facility] [address] [id number] [address] [place] [address] 04 Sep, 2018 Other organ or system involv ement in systemic lupus erythematosus M32.19 [facility] [address] [id number] [address] [place] [address] Oct, Other organ or system involv ement in systemic lupus erythematosus M32.19 [facility] [address] [id number] [address] [place] [address] Sep, Other organ or system involv ement in systemic lupus erythematosus M32.19 [facility] [address] [id number] [address] [place] [address] Aug, Anxiety F41.9 [facility] [address] [id number] [address] [place] [address] Aug, Other organ or system involv ement in systemic lupus erythematosus M32.19 [facility] [address] [id number] [address] [place] [address] July, Medicare annual wellness vis it, initial Z00.00 ; Anxiety F41.9 ; HILARIO (obstructive sleep apnea) G47.33 ; Hepatitis C B19.20 ; Other chronic pain G89.29 ; Asymptomatic menopausal state Z78.0 and Episode of recurrent major depressive disorder, unspecified depression episode severity F33.9 [facility] [address] [id number] [address] [place] [address] July, Anxiety F41.9 [facility] [address] [id number] [address] [place] [address] July, Other organ or system involv ement in systemic lupus erythematosus M32.19 [facility] [address] [id number] [address] [place] [address] July, [facility] [address] [id number] [address] [place] [address] Jun, Other organ or system involv ement in systemic lupus erythematosus M32.19 ; BMI 40.0-44.9, adult Z68.41 ; Other chronic pain G89.29 and Controlled substance agreement signed Z79.899 [facility] [address] [facility] [id number] [address] [place] [address] May, Sciatica M54.30 [facility] [address] [facility] [id number] [address] [place] [address] Apr, Sciatica M54.30 [facility] [address] [id number] [address] [place] [address] Mar, Sciatica M54.30 [facility] [address] [id number] [address] [place] [address] Feb, Sciatica M54.30 [facility] [address] [id number] [address] [place] [address] Jan, Sciatica M54.30 [facility] [address] [facility] [id number] [address] [place] [address] 14 Jan, 2017 Sciatica M54.30 [facility] [address] [facility] [id number] [address] [place] [address] Dec, Sciatica M54.30 [facility] [address] [facility] [id number] [address] [place] [address] 18 Dec, 2016 Sciatica M54.30 [facility] [address] [facility] [id number] [address] [place] [address] 29 Nov, 2016 Mixed hyperlipidemia E78.2 ; Chronic seasonal allergic rhinitis due to other allergen J30.2 and Family history of early CAD Z82.49 [facility] [address] [facility] [id number] [address] [place] [address] 21 Nov, 2016 Sciatica M54.30 [facility] [address] [facility] [id number] [address] [place] [address] 18 Nov, 2016 Mixed hyperlipidemia E78.2 ; Chronic seasonal allergic rhinitis due to other allergen J30.2 ; Family history of early CAD Z82.49 ; Other chronic pain G89.29 and Pain in left shoulder M25.512 [facility] [address] [facility] [id number] [address] [place] [address] Nov, Acute pain of left shoulder M25.512 [facility] [address] [id number] [address] [place] [address] Oct, Sciatica M54.30 [facility] [address] [id number] [address] [place] [address] Oct, [facility] [address] [facility] [id number] [address] [place] [address] Sep, Sciatica M54.30 [facility] [address] [id number] [address] [place] [address] Sep, Acute pain of left shoulder M25.512 [facility] [address] [facility] [id number] [address] [place] [address] Sep, Acute pain of left shoulder M25.512 [place] [address] [facility] [id number] [address] [place] [address] Aug, Sciatica M54.30 [facility] [address] [facility] [id number] [address] [place] [address] Aug, Sciatica M54.30 ; Tobacco ab use Z72.0 and Tobacco abuse counseling Z71.6 [facility] [address] [facility] [id number] [address] [place] [address] Aug, Acute pain of left shoulder M25.512 [facility] [address] [facility] [id number] [address] [place] [address] Aug, Contusion of right shoulder, initial encounter S40.011A ; Acute pain of left shoulder M25.512 and Shortness of breath R06.02 [facility] [address] [facility] [id number] [address] [place] [address] Aug, Lumbago with sciatica, right side M54.41 [facility] [address] [facility] [id number] [address] [place] [address] July, [facility] [address] [facility] [id number] [address] [place] [address] July, Lumbago with sciatica, right side M54.41 [facility] [address] [place] [id number] [place] [address] Jun, Lumbago with sciatica, right side M54.41 [facility] [address] [place] [id number] [place] [address] May, Lumbago with sciatica, right side M54.41 [facility] [address] [place] [id number] [place] [phone] May, Herpes zoster without compli cation B02.9 [facility] [address] [place] [id number] [place] [address] May, Back pain M54.9 and Acute ri ght-sided low back pain with right-sided sciatica M54.41 [place] [address] [address] Apr, [place] [address] [address] Apr, Lumbago with sciatica, right side M54.41 and Other chronic pain G89.29 [place] [address] [place] [id number] [address] [place] [address] Apr, [place] [address] [address] Mar, [facility] [address] [place] [id number] [place] [address] Mar, [place] [address] [address] Feb, [facility] [address] [place] [id number] [address] [place] [address] Jan, Urinary frequency R35.0 [place] [address] [place] [id number] [place] [address] Jan, [facility] [address] [id number] [address] [place] [address] Dec, [facility] [address] [id number] [address] [place] [address] Oct, [facility] [address] [id number] [address] [place] [address] Sep, [facility] [address] [id number] [address] [place] [address] Sep, Foreign body in left foot, i nitial encounter S90.852A [facility] [address] [id number] [address] [place] [address] Aug, [facility] [address] [id number] [address] [place] [phone] July, Sciatica M54.30 [facility] [address] [id number] [address] [place] [phone] Jun, [facility] [address] [id number] [address] [place] [phone] May, Osteoarthritis M19.90 [facility] [address] [id number] [address] [place] [phone] May, [facility] [address] [facility] [id number] [address] [place] [phone] May, Pain in right hip M25.551 [facility] [address] [id number] [address] [place] [phone] May, Tinea corporis B35.4 [facility] [address] [id number] [address] [place] [phone] 10 Apr, 2015 Pain in right hip M25.551 [facility] [address] [address] [id number] [address] [place] [id number] Mar, Pain in right hip M25.551 [facility] [address] [id number] [address] [place] [id number] Mar, [facility] [address] [id number] [address] [place] [phone] Feb, Pain in right hip M25.551 [facility] [address] [id number] [address] [place] [id number] Jan, Acute bronchitis, unspecifie d organism J20.9 and Cough R05 [facility] [address] [id number] [address] [place] [phone] Jan, Pain in right hip M25.551 [facility] [address] [id number] [address] [place] [id number] Dec, Pain in right hip M25.551 [facility] [address] [id number] [address] [place] [phone] Nov, Acute bronchitis 466.0 [facility] [address] [id number] [address] [place] [id number] Nov, [facility] [address] [id number] [address] [place] [phone] Oct, [facility] [address] [id number] [address] [place] [id number] Sep, [facility] [address] [id number] [address] [place] [id number] Aug, [facility] [address] [id number] [address] [place] [id number] July, [facility] [address] [id number] [address] [place] [phone] Jun, [facility] [address] [id number] [address] [place] [phone] Jun, [facility] [address] [id number] [address] [place] [phone] May, [facility] [address] [id number] [address] [place] [phone] May, [facility] [address] [id number] [address] [place] [address], [place] [address] Apr, 2014 [facility] [address] [id number] [address] [place] [address], [place] [address] Apr, 2014 [facility] [address] [id number] [address] [place] [address], [place] [address] Apr, 2014 [facility] [address] [id number] [address] [place] [address], [place] [address] Apr, 2014 [facility] [address] [id number] [address] [place] [address], [place] [address] Apr, 2014 [facility] [address] [id number] [address] [place] [address], [place] [address] Apr, 2014 [facility] [address] [id number] [address] [place] [address], [place] [address] Mar, [facility] [address] [id number] [address] [place] [address], [place] [address] Mar, [facility] [address] [id number] [address] [place] [address], [place] [address] Feb, [facility] [address] [id number] [address] [place] [address], [place] [address] Feb, [facility] [address] [id number] [address] [place] [address], [place] [address] Feb, [facility] [address] [id number] [address] [place] [phone] Dec, [facility] [address] [id number] [address] [place] [address], [place] [address] Dec, [facility] [address] [id number] [address] [place] [address], [place] [address] 17 Nov, 2013 [facility] [address] [id number] [address] [place] [id number] 17 Nov, 2013 [facility] [address] [id number] [address] [place] [address], [place] [address] Nov, [facility] [address] [id number] [address] [place] [address], [place] [address] Nov, [facility] [address] [id number] [address] [place] [address], [place] [address] Sep, [facility] [address] [id number] [address] [place] [address], [place] [address] Sep, [facility] [address] [id number] [address] [place] [address], [place] [address] Sep, [facility] [address] [id number] [address] [place] [address], [place] [address] Sep, [facility] [address] [id number] [address] [place] [address], [place] [address] Aug, [facility] [address] [id number] [address] [place] [address], [place] [address] Aug, [facility] [address] [id number] [address] [place] [address], [place] [address] Aug, [facility] [address] [id number] [address] [place] [address], [place] [address] Aug, [facility] [address] [id number] [address] [place] [address], [place] [address] July, [facility] [address] [id number] [address] [place] [address], [place] [address] July, [facility] [address] [id number] [address] [place] [address], [place] [address] Jun, [facility] [address] [id number] [address] [place] [address], [place] [address] Jun, [facility] [address] [id number] [address] [place] [address], [place] [address] Jun, [facility] [address] [id number] [address] [place] [address], [place] [address] Jun, [facility] [address] [id number] [facility] [address] Jun, [facility] [address] [id number] [address] [place] [address], [place] [address] Jun, [facility] [address] [id number] [facility] [address] Jun, [facility] [address] [id number] [address] [place] [address], [place] [address] Jun, [facility] [address] [id number] [facility] [address] May, [facility] [address] [id number] [address] [place] [address], [place] [address] May, [facility] [address] [id number] [address] [place] [address], [place] [address] May, [facility] [address] [id number] [address] [place] [address], [place] [address] May, [facility] [address] [id number] [address] [place] [address], [place] [address] May, [facility] [address] [id number] [address] [place] [address], [place] [address] May, [facility] [address] [id number] [address] [place] [address], [place] [address] Apr, [facility] [address] [id number] [address] [place] [address], [place] [address] Apr, [facility] [address] [id number] [address] [place] [address], [place] [address] Apr, [facility] [address] [id number] [address] [place] [address], [place] [address] Apr, [facility] [address] [id number] [address] [place] [address], [place] [address] Mar, [facility] [address] [id number] [address] [place] [address], [place] [address] Mar, [facility] [address] [id number] [address] [place] [address], [place] [address] Mar, [facility] [address] [id number] [address] [place] [address], [place] [address] Mar, [facility] [address] [id number] [address] [place] [address], [place] [address] Mar, [facility] [address] [id number] [address] [place] [address], [place] [address] Mar, [facility] [address] [id number] [address] [place] [address], [place] [address] Feb, [facility] [address] [id number] [address] [place] [address], [place] [address] Feb, [facility] [address] [id number] [address] [place] [address], [place] [address] Feb, [facility] [address] [id number] [address] [place] [address], [place] [address] Feb, [facility] [address] [id number] [address] [place] [address], [place] [address] Feb, [facility] [address] [id number] [address] [place] [address], [place] [address] Feb, [facility] [address] [id number] [address] [place] [address], [place] [address] Feb, [facility] [address] [id number] [address] [place] [address], [place] [address] Feb, [facility] [address] [id number] [address] [place] [address], [place] [address] Feb, [facility] [address] [id number] [address] [place] [address], [place] [address] Feb, [facility] [address] [id number] [address] [place] [address], [place] [address] Feb, [facility] [address] [id number] [address] [place] [address], [place] [address] Feb, [facility] [address] [id number] [address] [place] [address], [place] [address] Jan, [facility] [address] [id number] [address] [place] [address], [place] [address] Jan, [facility] [address] [id number] [address] [place] [address], [place] [address] Jan, [facility] [address] [id number] [address] [place] [address], [place] [address] Jan, [facility] [address] [id number] [address] [place] [address], [place] [address] Jan, [facility] [address] [id number] [address] [place] [address], [place] [address] Jan, [facility] [address] [id number] [address] [place] [address], [place] [address] Jan, [facility] [address] [id number] [address] [place] [address], [place] [address] Jan, [facility] [address] [id number] [address] [place] [id number] Jan, [facility] [address] [id number] [address] [place] [address], [place] [address] Jan, [facility] [address] [id number] [address] [place] [id number] Dec, [facility] [address] [id number] [address] [place] [address], [place] [address] Dec, [facility] [address] [id number] [address] [place] [address], [place] [address] Nov, [facility] [address] [id number] [address] [place] [address], [place] [address] Nov, [facility] [address] [id number] [address] [place] [address], [place] [address] Nov, [facility] [address] [id number] [address] [place] [address], [place] [address] 05 Nov, 2012 [facility] [address] [id number] [address] [place] [address], [place] [address] Nov, [facility] [address] [id number] [address] [place] [address], [place] [address] Oct, [facility] [address] [id number] [address] [place] [address], [place] [address] Oct, [facility] [address] [id number] [address] [place] [address], [place] [address] Oct, [facility] [address] [id number] [address] [place] [address], [place] [address] Oct, [facility] [address] [id number] [address] [place] [address], [place] [address] Oct, [facility] [address] [id number] [address] [place] [address], [place] [address] Sep, [facility] [address] [id number] [address] [place] [address], [place] [address] Sep, [facility] [address] [id number] [address] [place] [address], [place] [address] Sep, [facility] [address] [id number] [address] [place] [address], [place] [address] Sep, [facility] [address] [id number] [address] [place] [address], [place] [address] Sep, [facility] [address] [id number] [address] [place] [address], [place] [address] Sep, [facility] [address] [id number] [address] [place] [address], [place] [address] Aug, [facility] [address] [id number] [address] [place] [address], [place] [address] Aug, [facility] [address] [id number] [address] [place] [address], [place] [address] July, [facility] [address] [id number] [address] [place] [address], [place] [address] July, [facility] [address] [id number] [address] [place] [address], [place] [address] July, [facility] [address] [id number] [address] [place] [address], [place] [address] Jun, [facility] [address] [id number] [address] [place] [address], [place] [address] Jun, [facility] [address] [id number] [address] [place] [address], [place] [address] Jun, [facility] [address] [id number] [address] [place] [address], [place] [address] Jun, [facility] [address] [id number] [address] [place] [address], [place] [address] May, [facility] [address] [id number] [address] [place] [address], [place] [address] May, [facility] [address] [id number] [address] [place] [address], [place] [address] Apr, [facility] [address] [id number] [address] [place] [address], [place] [address] Apr, [facility] [address] [id number] [address] [place] [address], [place] [address] Apr, [facility] [address] [id number] [address] [place] [address], [place] [address] Apr, [facility] [address] [id number] [address] [place] [address], [place] [address] 13 Apr, 2012 [facility] [address] [id number] [address] [place] [address], [place] [address] Apr, [facility] [address] [id number] [address] [place] [id number] Apr, [facility] [address] [id number] [address] [place] [address], [place] [address] Apr, [facility] [address] [id number] [address] [place] [address], [place] [address] Mar, [facility] [address] [id number] [address] [place] [address], [place] [address] Mar, [facility] [address] [id number] [address] [place] [address], [place] [address] Mar, [facility] [address] [id number] [address] [place] [address], [place] [address] Mar, [facility] [address] [id number] [address] [place] [address], [place] [address] Jan, [facility] [address] [id number] [address] [place] [address], [place] [address] Jan, [facility] [address] [id number] [address] [place] [address], [place] [address] Jan, [facility] [address] [id number] [address] [place] [address], [place] [address] Jan, [facility] [address] [id number] [address] [place] [address], [place] [address] Jan, [facility] [address] [id number] [address] [place] [address], [place] [address] Dec, [facility] [address] [id number] [address] [place] [address], [place] [address] Dec, [facility] [address] [id number] [address] [place] [address], [place] [address] Dec, [facility] [address] [id number] [address] [place] [address], [place] [address] Dec, [facility] [address] [id number] [address] [place] [address], [place] [address] Nov, [facility] [address] [id number] [address] [place] [address], [place] [address] Oct, [facility] [address] [id number] [address] [place] [address], [place] [address] Oct, [facility] [address] [id number] [address] [place] [address], [place] [address] Oct, [facility] [address] [id number] [address] [place] [address], [place] [address] Oct, [facility] [address] [id number] [address] [place] [address], [place] [address] Oct, [facility] [address] [id number] [address] [place] [address], [place] [address] Sep, [facility] [address] [id number] [address] [place] [address], [place] [address] Sep, [facility] [address] [id number] [address] [place] [address], [place] [address] Aug, [facility] [address] [id number] [address] [place] [address], [place] [address] Aug, [facility] [address] [id number] [address] [place] [address], [place] [address] Aug, [facility] [address] [id number] [address] [place] [address], [place] [address] Aug, [facility] [address] [id number] [address] [place] [address], [place] [address] July, [facility] [address] [id number] [address] [place] [address], [place] [address] Jun, [facility] [address] [id number] [address] [place] [address], [place] [address] May, [facility] [address] [id number] [address] [place] [address], [place] [address] May, [facility] [address] [id number] [address] [place] [address], [place] [address] May, [facility] [address] [id number] [address] [place] [address], [place] [address] 30 Mar, 2011 [facility] [address] [id number] [address] [place] [address], [place] [address] Feb, [facility] [address] [id number] [address] [place] [address], [place] [address] Feb, [facility] [address] [id number] [address] [place] [address], [place] [address] Jan, [facility] [address] [id number] [address] [place] [address], [place] [address] Jan, [facility] [address] [id number] [address] [place] [address], [place] [address] Jan, [facility] [address] [id number] [address] [place] [address], [place] [address] Jan, [facility] [address] [id number] [address] [place] [address], [place] [id number] Jan, [facility] [address] [id number] [address] [place] [address], [place] [id number] Dec, [facility] [address] [id number] [address] [place] [address], [place] [id number] Dec, [facility] [address] [id number] [address] [place] [id number] Dec, [facility] [address] [id number] [address] [place] [id number] May, [facility] [address] [id number] [address] [place] [address], [place] [id number] 15 May, 2009 [facility] [address] [id number] [address] [place] [address], [place] [id number] 17 Apr, 2009 [facility] [address] [id number] [address] [place] [address], [place] [id number] Jan, [facility] [address] [id number] [address] [place] [address] 11 Apr, 2008 IMMUNIZATIONS No Known Immunizations SOCIAL HISTORY Never Assessed REASON FOR VISIT PLAN OF CARE VITAL SIGNS MEDICATIONS Unknown Medications RESULTS No Results PROCEDURES Procedure Date Ordered Result Body Site ASSAY OF MAGNESIUM Nov 24, 2012 RENAL FUNCTION PANEL Nov 24, 2012 LIPID PANEL Nov 24, 2012 VENIPUNCT, ROUTINE* Nov 24, 2012 INSTRUCTIONS MEDICATIONS ADMINISTERED No Known Medications [...] [facility] ER, heart- kidney- Stayed a [facility] ICU 12/2017 Hospitalization History [facility] ER 03/2018 Hospitalization History [facility]- Stroke 2 weeks 06/2018 Hospitalization History ER 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
--- OUTSIDE RECORDS SUMMARY | 2019-10-19 08:26 | XMS REPORT ---
Author Author Luanne Duque [facility] Address [address] [place] [address] Care Team Providers Care Furniture Polisher Name Role Phone ONEYDA Duque Unavailable PROBLEMS Type Condition ICD9-CM Code VWE20-TW Code Onset Dates Condition S tatus SNOMED Code Problem Mixed hyperlipidemia E78.2 Active 185078934 Problem Anxiety F41.9 Active 63446217 Problem Other organ or system involvement in systemic julito pus erythematosus M32.19 Active 34671273 Problem Episode of recurrent major d epressive disorder, unspecified depression episode severity F33.9 Active 915222470 Problem Asymptomatic menopausal state Z78.0 Active 85936346 Problem Systemic lupus erythematosus , unspecified SLE type, unspecified organ involvement status M32.9 Active 37469547 Problem Right renal artery stenosis I70.1 Ac tive 47075962305111415 Problem Type 2 diabetes mellitus with foot ulcer E11.621 Active 879371795942544 Problem Lumbago with sciatica, right side M54.41 Active 795670493 Problem Non-pressure chronic ulcer o f other part of unspecified foot limited to breakdown of skin L97.501 Active 098521720 Problem Other chronic pain G89.29 Active 8 8567675 Problem Other chronic pain G89.29 Active 8 5055674 Problem Acute right-sided low back pain with right-sided sciatica M54.41 Active 236904723 Problem 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 724774220 Problem 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 04418567 Problem Frequent falls R29.6 Active 05426 2002 Problem HILARIO (obstructive sleep apnea) G47.33 Active 98902546 Problem Cerebrovascular accident (CV A) due to occlusion of other cerebral artery I63.59 Active 599765005 Problem Sciatica M54.30 Active 32901502 Problem Gangrene I96 Active 445427657 Problem Hepatitis C B19.20 Active 67505866 Problem Unsteady gait R26.81 Active 695866 008 Problem Seborrheic keratoses L82.1 Active 431207047 Problem Non-pressure chronic ulcer o f other part of unspecified foot limited to breakdown of skin L97.501 Active 120458289 Problem Urinary frequency R35.0 Active 16 6894962 Problem Necrosis I96 Active 356793205 Problem 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 Active 092997961 Problem Type 2 diabetes mellitus with foot ulcer E11.621 Active 515299518949328 Problem Arterial insufficiency of lower extremity I73.9 Active 691220112505439 Problem Ventricular tachycardia I47.2 Active 12512089 Problem Atherosclerosis of renal artery I70.1 Active 809512073309258 Problem correction 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 Z79 .01 Active 812141069 Problem 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 Active 993077106 Problem Chronic anticoagulation Z79.01 Active 123647635 Problem Sialoadenitis, unspecified K11.20 Act gulshan 12575529 Problem Current moderate episode of major depressive disorder without prior episode F32.1 Active 99026563 Problem Body mass index (BMI) 29.0-29.9, adult Z68.29 Active 449256464 Problem Systolic congestive heart failure, unspecified HF chronici ty I50.20 Active 12316213 Problem Hypertension I10 Active 1312196 3 Problem Cardiomyopathy of undetermined type I42.9 Active 01030712 ALLERGIES No Information ENCOUNTERS Encounter Location Date Diagnosis [place] [id number] [place] [phone] Aug, [place] [address] [facility] NAMED [facility] [id number] [address] [place] [phone] 30 Jun, 2019 Other chronic pain G89.29 [place] [address] [place] [id number] [address] [place] [phone] 14 Jun, 2019 Frequent headaches R51 [place] [address] [facility]AM[facility] [id number] [address] [place] [phone] 03 Jun, 2019 Systolic congestive heart fa ilure, unspecified HF chronicity I50.20 ; Type 2 diabetes mellitus with foot ulcer E11.621 and Coronary artery disease of solomon artery of solomon heart with stable angina pectoris I25.118 [facility] [address] [address] Jun, Other chronic pain G89.29 [facility] [address] [address] 16 May, 2019 [facility] [address] [address] May, Other chronic pain G89.29 [facility] [address] [address] 20 Apr, 2019 Atherosclerosis of renal art taurus I70.1 ; Cardiomyopathy of undetermined type I42.9 and Ventricular tachycardia I47.2 [place] [address] [address] 14 Apr, 2019 [facility] [address] [address] 11 Apr, 2019 Non-intractable vomiting wit h nausea, unspecified vomiting type R11.2 [place] [address] [address] 03 Apr, 2019 Other chronic pain G89.29 [facility] [address] [address] Mar, Other chronic pain G89.29 [place] [address] [address] Feb, Renal insufficiency N28.9 [facility] [address] [address] Feb, [place] [address] [address] Feb, Frequent headaches R51 and H ypertension I10 [place] [address] [address] Feb, Other chronic pain G89.29 [facility] [address] [id number] [address] [place] [phone] 27 Jan, 2019 Encounter for Medicare rigoberto [...] episode F32.1 and Encounter for immunization Z23 [place] [address] [id number] [address] [place] [phone] 22 Jan, 2019 [place] [address] [id number] [address] [place] [phone] 13 Jan, 2019 Other chronic pain G89.29 [place] [address] [id number] [address] [place] [phone] 28 Dec, 2018 [facility] [address] [id number] [address] [place] [phone] 15 Dec, 2018 Hypokalemia E87.6 [facility] [address] [id number] [address] [place] [phone] 15 Dec, 2018 Nausea R11.0 [place] [address] [facility] [id number] [address] [place] [phone] 14 Dec, 2018 Other chronic pain G89.29 [facility] [address] [id number] [address] [place] [phone] 10 Dec, 2018 Systolic congestive heart fa ilure, unspecified HF chronicity I50.20 and Ventricular tachycardia I47.2 [facility] [address] [id number] [address] [place] [phone] 08 Dec, 2018 [facility] [address] [id number] [address] [place] [address] 17 Nov, 2018 Other chronic pain G89.29 [facility] [address] [facility] [id number] [address] [place] [phone] Nov, Nausea with vomiting, unspec ified R11.2 [place] [address] [facility]AM[facility] [id number] [address] [place] [address] Oct, [facility] [address] [place] [id number] [address] [place] [address] Oct, Other chronic pain G89.29 [facility] [address] [place] [id number] [address] [place] [address] Oct, [place] [address] [address] Oct, Arterial insufficiency of lo wer extremity I73.9 and High risk medication use Z79.899 [facility] [address] [place] [id number] [place] [address] Oct, Type 2 diabetes mellitus wit h foot ulcer E11.621 and Non-pressure chronic ulcer of other part of unspecified foot limited to breakdown of skin L97.501 [facility] [address] [place] [address] Oct, Gangrene I96 [place] [address] [place] [id number] [address] [place] [address] Sep, Other chronic pain G89.29 [place] [address] [place] [id number] [address] [place] [address] Sep, Status post CVA Z86.73 ; Uns teady gait R26.81 and Frequent falls R29.6 [place] [address] [place] [id number] [address] [place] [phone] Sep, Nausea with vomiting, unspec ified R11.2 [place] [address] [facility]AM[facility] [id number] [address] [place] [phone] Sep, Other chronic pain G89.29 [place] [address] [place] [id number] [place] [phone] Aug, [facility] [address] [id number] [address] [place] [address] Aug, Other chronic pain G89.29 [facility] [address] [facility] [id number] [address] [place] [address] July, correction current use of ant icoagulant Z79.01 and Cerebrovascular accident (CVA) due to occlusion of other cerebral artery I63.59 [place] [facility] [id number] [address] [place] [phone] July, Renal insufficiency N28.9 [place] [address] [facility]AM[facility] [id number] [address] [place] [phone] July, Cerebrovascular accident (CV A) due to occlusion of other cerebral artery I63.59 and Unexplained weight loss R63.4 [place] [address] [facility]AM[facility] [id number] [address] [place] [phone] July, [place] [address] [facility]AM[facility] [id number] [address] [place] [phone] July, [place] [address] [facility]AMED [facility] [id number] [address] [place] [address] July, Unexplained weight loss R63. 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 4 [place] [address] [facility]AM[facility] [id number] [address] [place] [phone] May, Nausea with vomiting, unspec ified R11.2 [place] [address] [id number] [address] [place] [address] May, Non-recurrent acute suppurat gulshan otitis media of right ear without spontaneous rupture of tympanic membrane H66.001 and Chronic anticoagulation Z79.01 [facility] [address] [id number] [address] [place] [phone] May, Other chronic pain G89.29 [facility] [address] [id number] [address] [place] [address] Apr, Skin tear of right forearm w ithout complication, initial encounter S51.811A ; Skin tear of left forearm without complication, initial encounter S51.812A and Encounter for immunization Z23 [facility] [address] [facility] [id number] [address] [place] [phone] 20 Apr, 2018 [facility] [address] [facility]AM[facility] [id number] [address] [place] [address] Apr, Diarrhea, unspecified R19.7 ; Nausea with vomiting, unspecified R11.2 and 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 [facility] [address] [id number] [address] [place] [phone] Apr, Other chronic pain G89.29 [facility] [address] [id number] [address] [place] [address] Mar, Other chronic pain G89.29 [facility] [address] [id number] [address] [place] [address] Mar, Other chronic pain G89.29 [facility] [address] [id number] [address] [place] [phone] Mar, [facility] [address] [facility] [id number] [address] [place] [phone] Mar, Other organ or system involv ement in systemic lupus erythematosus M32.19 [facility] [address] [facility] [id number] [address] [place] [address] Mar, Non-recurrent acute suppurat gulshan otitis media of right ear without spontaneous rupture of tympanic membrane H66.001 and Chronic anticoagulation Z79.01 [facility] [address] [facility] [facility] [id number] [address] [place] [phone] Feb, Sialoadenitis, unspecified K 11.20 [facility] [address] [facility] [facility] [id number] [address] [place] [phone] Feb, Other chronic pain G89.29 [facility] [address] [facility] [facility] [id number] [address] [place] [phone] Jan, 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 [place] [address] [facility]AM[facility] [id number] [address] [place] [phone] Jan, Other chronic pain G89.29 ; Lumbago with sciatica, right side M54.41 ; Other chronic pain G89.29 ; Tobacco abuse Z72.0 ; Tobacco abuse counseling Z71.6 ; Mixed hyperlipidemia E78.2 and 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 [facility] [address] [facility] [facility] [id number] [address] [place] [phone] Jan, [facility] [address] [facility]AMED [facility] [id number] [address] [place] [phone] Dec, [facility] [address] [facility]AM[facility] [id number] [address] [place] [phone] Dec, [facility] [address] [facility]AM[address] [facility] [id number] [address] [place] [phone] Dec, [place] [address] [facility]AM[facility] [id number] [address] [place] [phone] Dec, Mixed hyperlipidemia E78.2 ; Other chronic [...] erythematosus M32.19 [facility] [employer] [facility] [address] [place] [id number] Dec, Right renal artery stenosis I70.1 ; Othe r organ or system involvement in systemic lupus erythematosus M32.19 ; Hepatitis C B19.20 ; Tobacco abuse Z72.0 and Weakness R53.1 [facility] [employer] [facility] [address] [place] [id number] Dec, [facility] [address] [id number] [address] [place] [phone] Dec, [facility] [address] [id number] [address] [place] [phone] Dec, Other organ or system involv ement in systemic lupus erythematosus M32.19 [facility] [employer] [address] [place] [id number] Dec, Right renal artery stenosis I70.1 ; Inju ry of right kidney, sequela S37.001S ; Tobacco abuse Z72.0 ; Systemic lupus erythematosus, unspecified SLE type, unspecified organ involvement status M32.9 ; Hepatitis C B19.20 and Candidiasis of female genitalia B37.3 [facility] [address] [id number] [address] [place] [phone] Dec, Other organ or system involv ement in systemic lupus erythematosus M32.19 [facility] [address] [id number] [address] [place] [address] Dec, Other organ or system involv ement in systemic lupus erythematosus M32.19 [facility] [address] [id number] [address] [place] [phone] Dec, [facility] [address] [id number] [address] [place] [address] Nov, Other organ or system involv ement in systemic lupus erythematosus M32.19 [facility] [address] [id number] [address] [place] [phone] Oct, Other organ or system involv ement in systemic lupus erythematosus M32.19 [facility] [address] [facility] [id number] [address] [place] [phone] Sep, Other organ or system involv ement in systemic lupus erythematosus M32.19 [facility] [address] [facility] [id number] [address] [place] [address] Aug, Anxiety F41.9 [facility] [address] [id number] [address] [place] [phone] Aug, Other organ or system involv ement in systemic lupus erythematosus M32.19 [facility] [address] [facility] [id number] [address] [place] [address] July, Medicare annual wellness vis it, initial Z00.00 ; Anxiety F41.9 ; HILARIO (obstructive sleep apnea) G47.33 ; Hepatitis C B19.20 ; Other chronic pain G89.29 ; Asymptomatic menopausal state Z78.0 and Episode of recurrent major depressive disorder, unspecified depression episode severity F33.9 [facility] [address] [facility] [id number] [address] [place] [address] July, Anxiety F41.9 [facility] [address] [facility] [id number] [address] [place] [phone] July, Other organ or system involv ement in systemic lupus erythematosus M32.19 [facility] [address] [facility] [id number] [address] [place] [phone] July, [facility] [address] [id number] [address] [place] [address] Jun, Other organ or system involv ement in systemic lupus erythematosus M32.19 ; BMI 40.0-44.9, adult Z68.41 ; Other chronic pain G89.29 and Controlled substance agreement signed Z79.899 [facility] [address] [facility] [id number] [address] [place] [phone] May, Sciatica M54.30 [facility] [address] [id number] [address] [place] [address] Apr, Sciatica M54.30 [facility] [address] [id number] [address] [place] [address] Mar, Sciatica M54.30 [facility] [address] [id number] [address] [place] [address] Feb, Sciatica M54.30 [facility] [address] [id number] [address] [place] [phone] 15 Jan, 2017 Sciatica M54.30 [facility] [address] [id number] [address] [place] [phone] 14 Jan, 2017 Sciatica M54.30 [facility] [address] [id number] [address] [place] [phone] 19 Dec, 2016 Sciatica M54.30 [place] [address] [id number] [address] [place] [address] 18 Dec, 2016 Sciatica M54.30 [facility] [address] [id number] [address] [place] [address] 29 Nov, 2016 Mixed hyperlipidemia E78.2 ; Chronic seasonal allergic rhinitis due to other allergen J30.2 and Family history of early CAD Z82.49 [place] [address] [id number] [address] [place] [phone] 21 Nov, 2016 Sciatica M54.30 [facility] [address] [id number] [address] [place] [phone] 18 Nov, 2016 Mixed hyperlipidemia E78.2 ; Chronic seasonal allergic rhinitis due to other allergen J30.2 ; Family history of early CAD Z82.49 ; Other chronic pain G89.29 and Pain in left shoulder M25.512 [facility] [address] [id number] [address] [place] [address] 11 Nov, 2016 Acute pain of left shoulder M25.512 [place] [address] [id number] [address] [place] [address] Oct, Sciatica M54.30 [facility] [address] [id number] [address] [place] [phone] Oct, [facility] [address] [facility] [id number] [address] [place] [phone] Sep, Sciatica M54.30 [facility] [address] [id number] [address] [place] [address] Sep, Acute pain of left shoulder M25.512 [facility] [address] [id number] [address] [place] [address] Sep, Acute pain of left shoulder M25.512 [facility] [address] [facility] [id number] [address] [place] [phone] Aug, Sciatica M54.30 [facility] [address] [facility] [address] [facility] [id number] [address] [place] [phone] Aug, Sciatica M54.30 ; Tobacco ab use Z72.0 and Tobacco abuse counseling Z71.6 [facility] [address] [facility] [address] [facility] [id number] [address] [place] [address] Aug, Acute pain of left shoulder M25.512 [facility] [address] [facility] [address] [facility] [id number] [address] [place] [phone] Aug, Contusion of right shoulder, initial encounter S40.011A ; Acute pain of left shoulder M25.512 and Shortness of breath R06.02 [facility] [address] [id number] [address] [place] [address] Aug, Lumbago with sciatica, right side M54.41 [facility] [address] [facility] [id number] [address] [place] [phone] July, [facility] [address] [facility] [address] [facility] [id number] [address] [place] [phone] July, Lumbago with sciatica, right side M54.41 [facility] [address] [facility] [facility] [id number] [address] [place] [phone] Jun, Lumbago with sciatica, right side M54.41 [facility] [address] [facility] [facility] [id number] [address] [place] [phone] May, Lumbago with sciatica, right side M54.41 [facility] [address] [facility] [address] [facility] [id number] [address] [place] [phone] May, Herpes zoster without compli cation B02.9 [facility] [address] [facility] [address] [facility] [id number] [address] [place] [phone] May, Back pain M54.9 and Acute ri ght-sided low back pain with right-sided sciatica M54.41 [facility] [address] [place] [id number] [address] [place] [address] [id number] Apr, [facility] [id number] [place] [address] Apr, Lumbago with sciatica, right side M54.41 and Other chronic pain G89.29 [facility] [address] [id number] [address] [place] [address] Apr, [facility] [address] [id number] [address] [place] [address] Mar, [facility] [address] [id number] [address] [place] [address] Mar, [facility] [address] [id number] [address] [place] [phone] Feb, [facility] [address] [facility] [id number] [address] [place] [phone] Jan, Urinary frequency R35.0 [facility] [address] [facility] [id number] [address] [place] [phone] Jan, [facility] [address] [id number] [address] [place] [address] Dec, [facility] [address] [id number] [address] [place] [address] Oct, [facility] [address] [id number] [address] [place] [phone] Sep, [facility] [address] [id number] [address] [place] [address] Sep, Foreign body in left foot, i nitial encounter S90.852A [facility] [address] [id number] [address] [place] [address] Aug, [facility] [address] [id number] [address] [place] [address] July, Sciatica M54.30 [facility] [address] [id number] [address] [place] [phone] Jun, [facility] [address] [id number] [address] [place] [address] May, Osteoarthritis M19.90 [facility] [address] [id number] [address] [place] [phone] May, [facility] [address] [id number] [address] [place] [address] May, Pain in right hip M25.551 [facility] [address] [id number] [address] [place] [address] May, Tinea corporis B35.4 [facility] [address] [id number] [address] [place] [address] Apr, Pain in right hip M25.551 [facility] [address] [id number] [address] [place] [address] Mar, Pain in right hip M25.551 [facility] [address] [id number] [address] [place] [address] Mar, [facility] [address] [id number] [address] [place] [address] Feb, Pain in right hip M25.551 [facility] [address] [id number] [address] [place] [phone] Jan, Acute bronchitis, unspecifie d organism J20.9 and Cough R05 [facility] [address] [id number] [address] [place] [address] Jan, Pain in right hip M25.551 [facility] [address] [id number] [address] [place] [address] Dec, Pain in right hip M25.551 [facility] [address] [id number] [address] [place] [address] Nov, Acute bronchitis 466.0 [facility] [address] [id number] [address] [place] [address] Nov, [facility] [address] [id number] [address] [place] [phone] Oct, [facility] [address] [id number] [address] [place] [address] Sep, [facility] [address] [id number] [address] [place] [phone] Aug, [facility] [address] [id number] [address] [place] [phone] July, [facility] [address] [id number] [address] [place] [phone] 14 Jun, 2014 [facility] [address] [id number] [address] [place] [phone] 13 Jun, 2014 [facility] [address] [id number] [address] [place] [phone] May, [facility] [address] [id number] [address] [place] [phone] May, [facility] [address] [id number] [address] [place] [phone] Apr, 2014 [facility] [address] [id number] [address] [place] [address], [place] [address] 17 Apr, 2014 [facility] [address] [id number] [address] [place] [address], [place] [address] Apr, 2014 [facility] [address] [id number] [address] [place] [address], [place] [address] Apr, 2014 [facility] [address] [id number] [address] [place] [address], [place] [address] Apr, 2014 [facility] [address] [id number] [address] [place] [address], [place] [address] Apr, 2014 [facility] [address] [id number] [address] [place] [address], [place] [address] Mar, [facility] [address] [id number] [address] [place] [address], [place] [address] Mar, [facility] [address] [id number] [address] [place] [address], [place] [address] Feb, [facility] [address] [id number] [address] [place] [address], [place] [address] Feb, [facility] [address] [id number] [address] [place] [address], [place] [address] Feb, [facility] [address] [id number] [address] [place] [address], [place] [address] Dec, [facility] [address] [id number] [address] [place] [phone] Dec, [facility] [address] [id number] [address] [place] [address], [place] [address] Nov, [facility] [address] [id number] [address] [place] [address], [place] [address] 17 Nov, 2013 [facility] [address] [id number] [address] [place] [address], [place] [address] Nov, [facility] [address] [id number] [facility] [address] Nov, [facility] [address] [id number] [facility] [address] Sep, [facility] [address] [id number] [address] [place] [address], [place] [address] Sep, [facility] [address] [id number] [address] [place] [address], [place] [address] Sep, [facility] [address] [id number] [address] [place] [address], [place] [address] Sep, [facility] [address] [id number] [address] [place] [address], [place] [address] Aug, [facility] [address] [id number] [address] [place] [address], [place] [address] Aug, [facility] [address] [id number] [address] [place] [address], [place] [address] Aug, [facility] [address] [id number] [address] [place] [address], [place] [address] Aug, [facility] [address] [id number] [address] [place] [address], [place] [address] July, [facility] [address] [id number] [address] [place] [address], [place] [address] July, [facility] [address] [id number] [address] [place] [address], [place] [address] Jun, [facility] [address] [id number] [address] [place] [address], [place] [address] Jun, [facility] [address] [id number] [address] [place] [address], [place] [address] Jun, [facility] [address] [id number] [address] [place] [address], [place] [address] Jun, [facility] [address] [id number] [address] [place] [address], [place] [address] Jun, [facility] [address] [id number] [facility] [address] Jun, [facility] [address] [id number] [address] [place] [address], [place] [address] Jun, [facility] [address] [id number] [facility] [address] Jun, [facility] [address] [id number] [address] [place] [address], [place] [address] May, [facility] [address] [id number] [address] [place] [address], [place] [address] May, [facility] [address] [id number] [address] [place] [address], [place] [address] May, [facility] [address] [id number] [address] [place] [address], [place] [address] May, [facility] [address] [id number] [address] [place] [address], [place] [address] May, [facility] [address] [id number] [address] [place] [address], [place] [address] May, [facility] [address] [id number] [address] [place] [address], [place] [address] Apr, [facility] [address] [id number] [address] [place] [address], [place] [address] Apr, [facility] [address] [id number] [address] [place] [address], [place] [address] Apr, [facility] [address] [id number] [address] [place] [address], [place] [address] Apr, [facility] [address] [id number] [address] [place] [address], [place] [address] Mar, [facility] [address] [id number] [address] [place] [address], [place] [address] Mar, [facility] [address] [id number] [address] [place] [address], [place] [address] Mar, [facility] [address] [id number] [address] [place] [address], [place] [address] Mar, [facility] [address] [id number] [address] [place] [address], [place] [address] Mar, [facility] [address] [id number] [address] [place] [address], [place] [address] Mar, [facility] [address] [id number] [address] [place] [address], [place] [address] Feb, [facility] [address] [id number] [address] [place] [address], [place] [address] Feb, [facility] [address] [id number] [address] [place] [address], [place] [address] Feb, [facility] [address] [id number] [address] [place] [address], [place] [address] Feb, [facility] [address] [id number] [address] [place] [address], [place] [address] Feb, [facility] [address] [id number] [address] [place] [address], [place] [address] Feb, [facility] [address] [id number] [address] [place] [address], [place] [address] Feb, [facility] [address] [id number] [address] [place] [address], [place] [address] Feb, [facility] [address] [id number] [address] [place] [address], [place] [address] Feb, [facility] [address] [id number] [address] [place] [address], [place] [address] Feb, [facility] [address] [id number] [address] [place] [address], [place] [address] Feb, [facility] [address] [id number] [address] [place] [address], [place] [address] Feb, [facility] [address] [id number] [address] [place] [address], [place] [address] Jan, [facility] [address] [id number] [address] [place] [address], [place] [address] Jan, [facility] [address] [id number] [address] [place] [address], [place] [address] Jan, [facility] [address] [id number] [address] [place] [address], [place] [address] Jan, [facility] [address] [id number] [address] [place] [address], [place] [address] Jan, [facility] [address] [id number] [address] [place] [address], [place] [address] Jan, [facility] [address] [id number] [address] [place] [address], [place] [address] Jan, [facility] [address] [id number] [address] [place] [address], [place] [address] Jan, [facility] [address] [id number] [address] [place] [address], [place] [address] Jan, [facility] [address] [id number] [address] [place] [address] Jan, [facility] [address] [id number] [address] [place] [address] Dec, [facility] [address] [id number] [address] [place] [address] Dec, [facility] [address] [id number] [address] [place] [address], [place] [address] Nov, [facility] [address] [id number] [address] [place] [address], [place] [address] Nov, [facility] [address] [id number] [address] [place] [address] Nov, [facility] [address] [id number] [address] [place] [address] 05 Nov, 2012 [facility] [address] [id number] [address] [place] [address], [place] [address] Nov, [facility] [address] [id number] [address] [place] [address], [place] [address] Oct, [facility] [address] [id number] [address] [place] [address], [place] [address] Oct, [facility] [address] [id number] [address] [place] [address], [place] [address] Oct, [facility] [address] [id number] [address] [place] [address], [place] [address] Oct, [facility] [address] [id number] [address] [place] [address], [place] [address] Oct, [facility] [address] [id number] [address] [place] [address], [place] [address] Sep, [facility] [address] [id number] [address] [place] [address], [place] [address] Sep, [facility] [address] [id number] [address] [place] [address], [place] [address] Sep, [facility] [address] [id number] [address] [place] [address], [place] [address] Sep, [facility] [address] [id number] [address] [place] [address], [place] [address] Sep, [facility] [address] [id number] [address] [place] [address], [place] [address] Sep, [facility] [address] [id number] [address] [place] [address], [place] [address] Aug, [facility] [address] [id number] [address] [place] [address], [place] [address] Aug, [facility] [address] [id number] [address] [place] [address], [place] [address] July, [facility] [address] [id number] [address] [place] [address], [place] [address] July, [facility] [address] [id number] [address] [place] [address], [place] [address] July, [facility] [address] [id number] [address] [place] [address], [place] [address] Jun, [facility] [address] [id number] [address] [place] [address], [place] [address] Jun, [facility] [address] [id number] [address] [place] [address], [place] [address] Jun, [facility] [address] [id number] [address] [place] [address], [place] [address] Jun, [facility] [address] [id number] [address] [place] [address], [place] [address] May, [facility] [address] [id number] [address] [place] [address], [place] [address] May, [facility] [address] [id number] [address] [place] [address], [place] [address] Apr, [facility] [address] [id number] [address] [place] [address], [place] [address] Apr, [facility] [address] [id number] [address] [place] [address] Apr, [facility] [address] [id number] [address] [place] [address] Apr, [facility] [address] [id number] [address] [place] [address], [place] [address] Apr, [facility] [address] [id number] [address] [place] [address], [place] [address] Apr, [facility] [address] [id number] [address] [place] [id number] Apr, [facility] [address] [id number] [address] [place] [address] Apr, [facility] [address] [id number] [address] [place] [address], [place] [address] Mar, [facility] [address] [id number] [address] [place] [address], [place] [address] Mar, [facility] [address] [id number] [address] [place] [address], [place] [address] Mar, [facility] [address] [id number] [address] [place] [address], [place] [address] Mar, [facility] [address] [id number] [address] [place] [address], [place] [address] Jan, [facility] [address] [id number] [address] [place] [address], [place] [address] Jan, [facility] [address] [id number] [address] [place] [address], [place] [address] Jan, [facility] [address] [id number] [address] [place] [address], [place] [address] Jan, [facility] [address] [id number] [address] [place] [address], [place] [address] Jan, [facility] [address] [id number] [address] [place] [address], [place] [address] Dec, [facility] [address] [id number] [address] [place] [address], [place] [address] Dec, [facility] [address] [id number] [address] [place] [address] Dec, [facility] [address] [id number] [address] [place] [address], [place] [address] Dec, [facility] [address] [id number] [address] [place] [address], [place] [address] Nov, [facility] [address] [id number] [address] [place] [address], [place] [address] Oct, [facility] [address] [id number] [address] [place] [address], [place] [address] Oct, [facility] [address] [id number] [address] [place] [address], [place] [address] Oct, [facility] [address] [id number] [address] [place] [address], [place] [address] Oct, [facility] [address] [id number] [address] [place] [address], [place] [address] Oct, [facility] [address] [id number] [address] [place] [address], [place] [address] Sep, [facility] [address] [id number] [address] [place] [address], [place] [address] Sep, [facility] [address] [id number] [address] [place] [address], [place] [address] Aug, [facility] [address] [id number] [address] [place] [address], [place] [address] Aug, [facility] [address] [id number] [address] [place] [address], [place] [address] Aug, [facility] [address] [id number] [address] [place] [address], [place] [address] Aug, [facility] [address] [id number] [address] [place] [address], [place] [address] July, [facility] [address] [id number] [address] [place] [address], [place] [address] Jun, [facility] [address] [id number] [address] [place] [address], [place] [address] May, [facility] [address] [id number] [address] [place] [address], [place] [address] May, [facility] [address] [id number] [address] [place] [address], [place] [address] May, [facility] [address] [id number] [address] [place] [address], [place] [address] Mar, [facility] [address] [id number] [address] [place] [phone] Feb, [facility] [address] [id number] [address] [place] [phone] Feb, [facility] [address] [id number] [address] [place] [phone] Jan, [facility] [address] [id number] [address] [place] [phone] Jan, [facility] [address] [id number] [address] [place] [phone] Jan, [facility] [address] [id number] [address] [place] [phone] Jan, [facility] [address] [id number] [address] [place] [phone] Jan, [facility] [address] [id number] [address] [place] [phone] Dec, [facility] [address] [id number] [address] [place] [phone] Dec, [facility] [address] [id number] [address] [place] [phone] Dec, [facility] [address] [id number] [address] [place] [phone] May, [facility] [address] [id number] [address] [place] [phone] 15 May, 2009 [facility] [address] [id number] [address] [place] [phone] 17 Apr, 2009 [facility] [address] [id number] [address] [place] [phone] Jan, [facility] [address] [id number] [address] [place] [phone] 11 Apr, 2008 IMMUNIZATIONS No Known Immunizations SOCIAL HISTORY Never Assessed REASON FOR VISIT PLAN OF CARE VITAL SIGNS Height 63 in 2012-10-19 Weight 223.31 lbs 2012-10-19 Temperature 97.4 degrees Fahrenheit 2012-10-19 Heart Rate 96 bpm 2012-10-19 Respiratory Rate 20 2012-10-19 Blood pressure systolic 154 mmHg 2012-10-19 Blood pressure diastolic 84 mmHg 2012-10-19 MEDICATIONS Unknown Medications RESULTS No Results PROCEDURES Procedure Date Ordered Result Body Site SCR PAP SMER;NEW PT OBTAIN PREP&CONVY-LAB October 19, 2012 CYTOPATH C/V AUTO FLUID REDO October 19, 2012 TEST FOR BLOOD, FECES October 19, 2012 INSTRUCTIONS MEDICATIONS ADMINISTERED No Known Medications [...] for cancer Hospitalization History surgeries Hospitalization History [facility] ER, heart- kidney- Stayed a [facility] ICU 12/2017 Hospitalization History [facility] ER 03/2018 Hospitalization History [facility]- Stroke 2 weeks 06/2018 Hospitalization History ER 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
--- OUTSIDE RECORDS SUMMARY | 2019-10-19 08:26 | XMS REPORT ---
Author Author Eugenio LINDA [facility] Address [address] [place] [address] Care Team Providers Care Manager Mobility Name Role Phone EUGENIO LINDA Unavailable PROBLEMS Type Condition ICD9-CM Code [id number] Code Onset Dates Condition S tatus SNOMED Code Problem Mixed hyperlipidemia E78.2 Active 191775099 Problem Anxiety F41.9 Active 06499478 Problem Other organ or system involvement in systemic julito pus erythematosus M32.19 Active 69586893 Problem Episode of recurrent major d epressive disorder, unspecified depression episode severity F33.9 Active 070357018 Problem Asymptomatic menopausal state Z78.0 Active 50039627 Problem Systemic lupus erythematosus , unspecified SLE type, unspecified organ involvement status M32.9 Active 66098998 Problem Right renal artery stenosis I70.1 Ac tive 04869950039467986 Problem Type 2 diabetes mellitus with foot ulcer E11.621 Active 944013230084561 Problem Lumbago with sciatica, right side M54.41 Active 085371745 Problem Non-pressure chronic ulcer o f other part of unspecified foot limited to breakdown of skin L97.501 Active 948429798 Problem Other chronic pain G89.29 Active 8 5929798 Problem Other chronic pain G89.29 Active 8 9874725 Problem Acute right-sided low back pain with right-sided sciatica M54.41 Active 803127617 Problem correction current use of anticoagulant Z79.01 Active 003981379 Problem 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 93777037 Problem Frequent falls R29.6 Active 94816 2001 Problem HILAROI (obstructive sleep apnea) G47.33 Active 47617523 Problem Cerebrovascular accident (CV A) due to occlusion of other cerebral artery I63.59 Active 813606496 Problem Sciatica M54.30 Active 58765016 Problem Gangrene I96 Active 509909671 Problem Hepatitis C B19.20 Active 15920728 Problem Unsteady gait R26.81 Active 289883 008 Problem Seborrheic keratoses L82.1 Active 394755585 Problem Non-pressure chronic ulcer o f other part of unspecified foot limited to breakdown of skin L97.501 Active 407708344 Problem Urinary frequency R35.0 Active 16 6146694 Problem Necrosis I96 Active 266319171 Problem 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 Active 413361540 Problem Type 2 diabetes mellitus with foot ulcer E11.621 Active 370597232681004 Problem Arterial insufficiency of lower extremity I73.9 Active 860630911475240 Problem Ventricular tachycardia I47.2 Active 31587183 Problem Atherosclerosis of renal artery I70.1 Active 670813668701635 Problem 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 .01 Active 352836247 Problem 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 Active 068426998 Problem Chronic anticoagulation Z79.01 Active 579697937 Problem Sialoadenitis, unspecified K11.20 Act gulshan 19009415 Problem Current moderate episode of major depressive disorder without prior episode F32.1 Active 57013840 Problem Body mass index (BMI) 29.0-29.9, adult Z68.29 Active 550852293 Problem Systolic congestive heart failure, unspecified HF chronici ty I50.20 Active 75237933 Problem Hypertension I10 Active 0028991 3 Problem Cardiomyopathy of undetermined type I42.9 Active 40742387 ALLERGIES No Information ENCOUNTERS Encounter Location Date Diagnosis [place] [id number] [place] [phone] 10 Aug, 2019 [facility] [address] [facility] [id number] [address] [place] [id number] 30 Jun, 2019 Other chronic pain G89.29 [place] [address] [place] [id number] [address] [place] [id number] 14 Jun, 2019 Frequent headaches R51 [place] [address] [facility] [id number] [address] [place] [phone] 03 Jun, 2019 Systolic congestive heart fa ilure, unspecified HF chronicity I50.20 ; Type 2 diabetes mellitus with foot ulcer E11.621 and Coronary artery disease of [place] artery of [place] heart with stable angina pectoris I25.118 [facility] [address] [address] Jun, Other chronic pain G89.29 [facility] [address] [address] 16 May, 2019 [facility] [address] [address] May, Other chronic pain G89.29 [facility] [address] [address] 20 Apr, 2019 Atherosclerosis of renal art taurus I70.1 ; Cardiomyopathy of undetermined type I42.9 and Ventricular tachycardia I47.2 [facility] [address] [address] 14 Apr, 2019 [facility] [address] [address] Apr, Non-intractable vomiting wit h nausea, unspecified vomiting type R11.2 [place] [address] [address] 03 Apr, 2019 Other chronic pain G89.29 [facility] [address] [address] Mar, Other chronic pain G89.29 [place] [address] [address] Feb, Renal insufficiency N28.9 [facility] [address] [address] Feb, [place] [address] [address] Feb, Frequent headaches R51 and H ypertension I10 [place] [address] [address] Feb, Other chronic pain G89.29 [facility] [address] [id number] [address] [place] [phone] 27 Jan, 2019 Encounter for Medicare rigoberto [...] episode F32.1 and Encounter for immunization Z23 [place] [address] [facility] [id number] [address] [place] [id number] 22 Jan, 2019 [place] [address] [facility] [id number] [address] [place] [address] 13 Jan, 2019 Other chronic pain G89.29 [place] [address] [facility] [id number] [address] [place] [id number] 28 Dec, 2018 [place] [address] [facility] [id number] [address] [place] [phone] 15 Dec, 2018 Hypokalemia E87.6 [facility] [address] [facility] [id number] [address] [place] [id number] 15 Dec, 2018 Nausea R11.0 [place] [address] [facility] [id number] [address] [place] [id number] 14 Dec, 2018 Other chronic pain G89.29 [facility] [address] [id number] [address] [place] [id number] 10 Dec, 2018 Systolic congestive heart fa ilure, unspecified HF chronicity I50.20 and Ventricular tachycardia I47.2 [facility] [address] [id number] [address] [place] [id number] 08 Dec, 2018 [facility] [address] [facility] [id number] [address] [place] [id number] 17 Nov, 2018 Other chronic pain G89.29 [place] [address] [place] [id number] [address] [place] [address] Nov, Nausea with vomiting, unspec ified R11.2 [place] [address] [place] [id number] [address] [place] [phone] Oct, [place] [address] [place] [id number] [place] [address] Oct, Other chronic pain G89.29 [place] [address] [address] Oct, [place] [address] [address] Oct, Arterial insufficiency of lo wer extremity I73.9 and High risk medication use Z79.899 [facility] [address] [address] Oct, Type 2 diabetes mellitus wit h foot ulcer E11.621 and Non-pressure chronic ulcer of other part of unspecified foot limited to breakdown of skin L97.501 [facility] [address] [address] Oct, Gangrene I96 [place] [address] [place] [id number] [place] [address] Sep, Other chronic pain G89.29 [place] [address] [address] Sep, Status post CVA Z86.73 ; Uns teady gait R26.81 and Frequent falls R29.6 [place] [address] [address] Sep, Nausea with vomiting, unspec ified R11.2 [place] [address] [place] [id number] [address] [place] [address] Sep, Other chronic pain G89.29 [place] [address] [address] Aug, [facility] [address] [facility] [id number] [address] [place] [phone] Aug, Other chronic pain G89.29 [place] [address] [facility] [id number] [address] [place] [address] July, correction current use of ant icoagulant Z79.01 and Cerebrovascular accident (CVA) due to occlusion of other cerebral artery I63.59 [place] [address] [id number] [address] [place] [address] July, Renal insufficiency N28.9 [place] [address] [facility] [id number] [address] [place] [address] July, Cerebrovascular accident (CV A) due to occlusion of other cerebral artery I63.59 and Unexplained weight loss R63.4 [place] [address] [facility] [id number] [address] [place] [phone] July, [place] [address] [facility] [id number] [address] [place] [address] July, [place] [address] [facility] [id number] [address] [place] [phone] July, Unexplained weight loss R63. 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 4 [place] [address] [facility] [id number] [address] [place] [phone] May, Nausea with vomiting, unspec ified R11.2 [place] [address] [facility] [id number] [address] [place] [phone] May, Non-recurrent acute suppurat gulshan otitis media of right ear without spontaneous rupture of tympanic membrane H66.001 and Chronic anticoagulation Z79.01 [facility] [address] [id number] [address] [place] [address] May, Other chronic pain G89.29 [facility] [address] [id number] [address] [place] [address] Apr, Skin tear of right forearm w ithout complication, initial encounter S51.811A ; Skin tear of left forearm without complication, initial encounter S51.812A and Encounter for immunization Z23 [facility] [address] [id number] [address] [place] [address] Apr, [facility] [address] [id number] [address] [place] [address] Apr, Diarrhea, unspecified R19.7 ; Nausea with vomiting, unspecified R11.2 and 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 [facility] [address] [id number] [address] [place] [address] Apr, Other chronic pain G89.29 [facility] [address] [id number] [address] [place] [address] Mar, Other chronic pain G89.29 [facility] [address] [id number] [address] [place] [address] Mar, Other chronic pain G89.29 [facility] [address] [id number] [address] [place] [phone] Mar, [facility] [address] [id number] [address] [place] [phone] Mar, Other organ or system involv ement in systemic lupus erythematosus M32.19 [facility] [address] [id number] [address] [place] [phone] Mar, Non-recurrent acute suppurat gulshan otitis media of right ear without spontaneous rupture of tympanic membrane H66.001 and Chronic anticoagulation Z79.01 [facility] [address] [facility] [id number] [address] [place] [phone] 30 Feb, 2018 Sialoadenitis, unspecified K 11.20 [facility] [address] [facility] [id number] [address] [place] [phone] 07 Feb, 2018 Other chronic pain G89.29 [facility] [address] [facility] [id number] [address] [place] [address] Jan, correction current use of ant icoagulant therapy Z79.01 [place] [address] [facility] [id number] [address] [place] [address] Jan, Other chronic pain G89.29 ; Lumbago with sciatica, right side M54.41 ; Other chronic pain G89.29 ; Tobacco abuse Z72.0 ; Tobacco abuse counseling Z71.6 ; Mixed hyperlipidemia E78.2 and 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 [facility] [address] [facility] [id number] [address] [place] [address] Jan, [facility] [address] [facility] [id number] [address] [place] [phone] Dec, [facility] [address] [facility] [id number] [address] [place] [phone] Dec, [facility] [address] [facility] [id number] [address] [place] [phone] Dec, [place] [address] [facility] [id number] [address] [place] [phone] Dec, Mixed hyperlipidemia E78.2 ; Other chronic [...] in systemic lupus erythematosus M32.19 [facility] [address] [place] [id number] Dec, Right renal artery stenosis I70.1 ; Othe r organ or system involvement in systemic lupus erythematosus M32.19 ; Hepatitis C B19.20 ; Tobacco abuse Z72.0 and Weakness R53.1 [facility] [address] [place] [id number] Dec, [facility] [address] [id number] [address] [place] [phone] Dec, [facility] [address] [id number] [address] [place] [id number] Dec, Other organ or system involv ement in systemic lupus erythematosus M32.19 [facility] [address] [place] [id number] Dec, Right renal artery stenosis I70.1 ; Inju ry of right kidney, sequela S37.001S ; Tobacco abuse Z72.0 ; Systemic lupus erythematosus, unspecified SLE type, unspecified organ involvement status M32.9 ; Hepatitis C B19.20 and Candidiasis of female genitalia B37.3 [facility] [address] [id number] [address] [place] [phone] Dec, Other organ or system involv ement in systemic lupus erythematosus M32.19 [facility] [address] [id number] [address] [place] [address] Dec, Other organ or system involv ement in systemic lupus erythematosus M32.19 [facility] [address] [id number] [address] [place] [phone] Dec, [facility] [address] [id number] [address] [place] [address] Nov, Other organ or system involv ement in systemic lupus erythematosus M32.19 [facility] [address] [id number] [address] [place] [id number] Oct, Other organ or system involv ement in systemic lupus erythematosus M32.19 [facility] [address] [id number] [address] [place] [phone] Sep, Other organ or system involv ement in systemic lupus erythematosus M32.19 [facility] [address] [id number] [address] [place] [phone] Aug, Anxiety F41.9 [facility] [address] [id number] [address] [place] [phone] Aug, Other organ or system involv ement in systemic lupus erythematosus M32.19 [facility] [address] [facility] [id number] [address] [place] [phone] July, Medicare annual wellness vis it, initial Z00.00 ; Anxiety F41.9 ; HILARIO (obstructive sleep apnea) G47.33 ; Hepatitis C B19.20 ; Other chronic pain G89.29 ; Asymptomatic menopausal state Z78.0 and Episode of recurrent major depressive disorder, unspecified depression episode severity F33.9 [facility] [address] [facility] [id number] [address] [place] [phone] July, Anxiety F41.9 [facility] [address] [facility] [id number] [address] [place] [address] July, Other organ or system involv ement in systemic lupus erythematosus M32.19 [facility] [address] [facility] [id number] [address] [place] [address] July, [facility] [address] [id number] [address] [place] [address] Jun, Other organ or system involv ement in systemic lupus erythematosus M32.19 ; BMI 40.0-44.9, adult Z68.41 ; Other chronic pain G89.29 and Controlled substance agreement signed Z79.899 [facility] [address] [id number] [address] [place] [address] May, Sciatica M54.30 [facility] [address] [id number] [address] [place] [phone] Apr, Sciatica M54.30 [facility] [address] [id number] [address] [place] [address] Mar, Sciatica M54.30 [facility] [address] [id number] [address] [place] [phone] Feb, Sciatica M54.30 [facility] [address] [id number] [address] [place] [address] 15 Jan, 2017 Sciatica M54.30 [facility] [address] [id number] [address] [place] [address] Jan, Sciatica M54.30 [facility] [address] [id number] [address] [place] [id number] 19 Dec, 2016 Sciatica M54.30 [place] [address] [id number] [address] [place] [address] 18 Dec, 2016 Sciatica M54.30 [facility] [address] [id number] [address] [place] [id number] 29 Nov, 2016 Mixed hyperlipidemia E78.2 ; Chronic seasonal allergic rhinitis due to other allergen J30.2 and Family history of early CAD Z82.49 [place] [address] [id number] [address] [place] [address] Nov, Sciatica M54.30 [facility] [address] [id number] [address] [place] [address] 18 Nov, 2016 Mixed hyperlipidemia E78.2 ; Chronic seasonal allergic rhinitis due to other allergen J30.2 ; Family history of early CAD Z82.49 ; Other chronic pain G89.29 and Pain in left shoulder M25.512 [facility] [address] [id number] [address] [place] [address] 11 Nov, 2016 Acute pain of left shoulder M25.512 [place] [address] [id number] [address] [place] [address] Oct, Sciatica M54.30 [facility] [address] [id number] [address] [place] [phone] Oct, [facility] [address] [facility] [id number] [address] [place] [address] Sep, Sciatica M54.30 [facility] [address] [id number] [address] [place] [id number] Sep, Acute pain of left shoulder M25.512 [facility] [address] [id number] [address] [place] [address] Sep, Acute pain of left shoulder M25.512 [facility] [address] [facility] [id number] [address] [place] [address] Aug, Sciatica M54.30 [facility] [address] [facility] [id number] [address] [place] [address] Aug, Sciatica M54.30 ; Tobacco ab use Z72.0 and Tobacco abuse counseling Z71.6 [facility] [address] [facility] [id number] [address] [place] [address] Aug, Acute pain of left shoulder M25.512 [facility] [address] [facility] [id number] [address] [place] [phone] Aug, Contusion of right shoulder, initial encounter S40.011A ; Acute pain of left shoulder M25.512 and Shortness of breath R06.02 [facility] [address] [facility] [id number] [address] [place] [id number] Aug, Lumbago with sciatica, right side M54.41 [facility] [address] [facility] [id number] [address] [place] [phone] July, [facility] [address] [facility] [id number] [address] [place] [address] July, Lumbago with sciatica, right side M54.41 [facility] [address] [facility] [id number] [address] [place] [phone] Jun, Lumbago with sciatica, right side M54.41 [facility] [address] [place] [id number] [address] [place] [address] May, Lumbago with sciatica, right side M54.41 [facility] [address] [place] [id number] [address] [place] [phone] May, Herpes zoster without compli cation B02.9 [facility] [place] [facility] [address] [facility] [id number] [address] [place] [address] May, Back pain M54.9 and Acute ri ght-sided low back pain with right-sided sciatica M54.41 [facility] [address] [place] [id number] [place] [address] Apr, [facility] [address] [place] [id number] [place] [address] Apr, Lumbago with sciatica, right side M54.41 and Other chronic pain G89.29 [facility] [address] [address] Apr, [facility] [address] [place] [id number] [address] [place] [phone] Mar, [facility] [address] [place] [id number] [address] [place] [phone] Mar, [facility] [address] [place] [id number] [address] [place] [phone] Feb, [facility] [address] [facility] [id number] [address] [place] [phone] Jan, Urinary frequency R35.0 [facility] [address] [place] [id number] [address] [place] [phone] Jan, [facility] [address] [place] [id number] [address] [place] [phone] Dec, [facility] [address] [id number] [address] [place] [phone] Oct, [facility] [address] [id number] [address] [place] [id number] Sep, [facility] [address] [id number] [address] [place] [phone] Sep, Foreign body in left foot, i nitial encounter [id number] [facility] [address] [id number] [address] [place] [phone] Aug, [facility] [address] [id number] [address] [place] [phone] July, Sciatica M54.30 [facility] [address] [id number] [address] [place] [phone] Jun, [facility] [address] [id number] [address] [place] [phone] May, Osteoarthritis M19.90 [facility] [address] [id number] [address] [place] [address] May, [facility] [address] [id number] [address] [place] [address] May, Pain in right hip M25.551 [facility] [address] [id number] [address] [place] [address] May, Tinea corporis B35.4 [facility] [address] [id number] [address] [place] [address] 10 Apr, 2015 Pain in right hip M25.551 [facility] [address] [id number] [address] [place] [address] Mar, Pain in right hip M25.551 [facility] [address] [id number] [address] [place] [phone] Mar, [facility] [address] [id number] [address] [place] [address] Feb, Pain in right hip M25.551 [facility] [address] [id number] [address] [place] [address] Jan, Acute bronchitis, unspecifie d organism J20.9 and Cough R05 [facility] [address] [id number] [address] [place] [address] Jan, Pain in right hip M25.551 [facility] [address] [id number] [address] [place] [address] Dec, Pain in right hip M25.551 [facility] [address] [id number] [address] [place] [address] Nov, Acute bronchitis 466.0 [facility] [address] [id number] [address] [place] [phone] Nov, [facility] [address] [id number] [address] [place] [address] Oct, [facility] [address] [id number] [address] [place] [id number] Sep, [facility] [address] [id number] [address] [place] [phone] Aug, [facility] [address] [id number] [address] [place] [phone] July, [facility] [address] [id number] [address] [place] [id number] 14 Jun, 2014 [facility] [address] [id number] [address] [place] [phone] Jun, [facility] [address] [id number] [address] [place] [phone] May, [facility] [address] [id number] [address] [place] [phone] May, [facility] [address] [id number] [address] [place] [phone] Apr, [facility] [address] [id number] [address] [place] [address], [place] [address] 17 Apr, 2014 [facility] [address] [id number] [address] [place] [address], [place] [address] Apr, 2014 [facility] [address] [id number] [address] [place] [address], [place] [address] Apr, 2014 [facility] [address] [id number] [address] [place] [address], [place] [address] Apr, 2014 [facility] [address] [id number] [address] [place] [address], [place] [address] Apr, [facility] [address] [id number] [address] [place] [address], [place] [address] Mar, [facility] [address] [id number] [address] [place] [address], [place] [address] Mar, [facility] [address] [id number] [address] [place] [address], [place] [address] Feb, [facility] [address] [id number] [address] [place] [address], [place] [address] Feb, [facility] [address] [id number] [address] [place] [address], [place] [address] Feb, [facility] [address] [id number] [address] [place] [address], [place] [address] Dec, [facility] [address] [id number] [address] [place] [address], [place] [address] Dec, [facility] [address] [id number] [address] [place] [address], [place] [address] Nov, [facility] [address] [id number] [address] [place] [address], [place] [address] Nov, [facility] [address] [id number] [address] [place] [address], [place] [address] Nov, [facility] [address] [id number] [address] [place] [address], [place] [address] Nov, [facility] [address] [id number] [address] [place] [address], [place] [address] Sep, [facility] [address] [id number] [address] [place] [address], [place] [address] Sep, [facility] [address] [id number] [address] [place] [address], [place] [address] Sep, [facility] [address] [id number] [address] [place] [address], [place] [address] Sep, [facility] [address] [id number] [address] [place] [address], [place] [address] Aug, [facility] [address] [id number] [address] [place] [address], [place] [address] Aug, [facility] [address] [id number] [address] [place] [address], [place] [address] Aug, [facility] [address] [id number] [address] [place] [address], [place] [address] Aug, [facility] [address] [id number] [address] [place] [address], [place] [address] July, [facility] [address] [id number] [address] [place] [address], [place] [address] July, [facility] [address] [id number] [address] [place] [address], [place] [address] Jun, [facility] [address] [id number] [address] [place] [address], [place] [address] Jun, [facility] [address] [id number] [address] [place] [address], [place] [address] Jun, [facility] [address] [id number] [address] [place] [address], [place] [address] Jun, [facility] [address] [id number] [address] [place] [address], [place] [address] Jun, [facility] [address] [id number] [facility] [address] Jun, [facility] [address] [id number] [address] [place] [address], [place] [address] Jun, [facility] [address] [id number] [facility] [address] Jun, [facility] [address] [id number] [address] [place] [address], [place] [address] May, [facility] [address] [id number] [address] [place] [address], [place] [address] May, [facility] [address] [id number] [address] [place] [address], [place] [address] May, [facility] [address] [id number] [address] [place] [address], [place] [address] May, [facility] [address] [id number] [address] [place] [address], [place] [address] May, [facility] [address] [id number] [address] [place] [address], [place] [address] May, [facility] [address] [id number] [address] [place] [address], [place] [address] Apr, [facility] [address] [id number] [address] [place] [address], [place] [address] Apr, [facility] [address] [id number] [address] [place] [address], [place] [address] Apr, [facility] [address] [id number] [address] [place] [address], [place] [address] Apr, [facility] [address] [id number] [address] [place] [address], [place] [address] Mar, [facility] [address] [id number] [address] [place] [address], [place] [address] Mar, [facility] [address] [id number] [address] [place] [address], [place] [address] 13 Mar, 2013 [facility] [address] [id number] [address] [place] [address], [place] [address] 13 Mar, 2013 [facility] [address] [id number] [address] [place] [address], [place] [address] Mar, [facility] [address] [id number] [address] [place] [address], [place] [address] Mar, [facility] [address] [id number] [address] [place] [address], [place] [address] Feb, [facility] [address] [id number] [address] [place] [address], [place] [address] Feb, [facility] [address] [id number] [address] [place] [address], [place] [address] Feb, [facility] [address] [id number] [address] [place] [address], [place] [address] Feb, [facility] [address] [id number] [address] [place] [address], [place] [address] Feb, [facility] [address] [id number] [address] [place] [address], [place] [address] Feb, [facility] [address] [id number] [address] [place] [address], [place] [address] Feb, [facility] [address] [id number] [address] [place] [address], [place] [address] Feb, [facility] [address] [id number] [address] [place] [address], [place] [address] Feb, [facility] [address] [id number] [address] [place] [address], [place] [address] Feb, [facility] [address] [id number] [address] [place] [address], [place] [address] Feb, [facility] [address] [id number] [address] [place] [address], [place] [address] Feb, [facility] [address] [id number] [address] [place] [address], [place] [address] Jan, [facility] [address] [id number] [address] [place] [address], [place] [address] Jan, [facility] [address] [id number] [address] [place] [address], [place] [address] Jan, [facility] [address] [id number] [address] [place] [address], [place] [address] Jan, [facility] [address] [id number] [address] [place] [address], [place] [address] Jan, [facility] [address] [id number] [address] [place] [address], [place] [address] Jan, [facility] [address] [id number] [address] [place] [address], [place] [address] Jan, [facility] [address] [id number] [address] [place] [address], [place] [address] Jan, [facility] [address] [id number] [address] [place] [address], [place] [address] Jan, [facility] [address] [id number] [address] [place] [address], [place] [address] Jan, [facility] [address] [id number] [address] [place] [address], [place] [address] Dec, [facility] [address] [id number] [address] [place] [address], [place] [address] Dec, [facility] [address] [id number] [address] [place] [address], [place] [address] Nov, [facility] [address] [id number] [address] [place] [address], [place] [address] Nov, [facility] [address] [id number] [address] [place] [address], [place] [address] Nov, [facility] [address] [id number] [address] [place] [address], [place] [address] Nov, [facility] [address] [id number] [address] [place] [address], [place] [address] Nov, [facility] [address] [id number] [address] [place] [address], [place] [address] Oct, [facility] [address] [id number] [address] [place] [address], [place] [address] Oct, [facility] [address] [id number] [address] [place] [address], [place] [address] Oct, [facility] [address] [id number] [address] [place] [address], [place] [address] Oct, [facility] [address] [id number] [address] [place] [address], [place] [address] Oct, [facility] [address] [id number] [address] [place] [address], [place] [address] Sep, [facility] [address] [id number] [address] [place] [address], [place] [address] Sep, [facility] [address] [id number] [address] [place] [address], [place] [address] Sep, [facility] [address] [id number] [address] [place] [address], [place] [address] Sep, [facility] [address] [id number] [address] [place] [address], [place] [address] Sep, [facility] [address] [id number] [address] [place] [address], [place] [address] Sep, [facility] [address] [id number] [address] [place] [address], [place] [address] Aug, [facility] [address] [id number] [address] [place] [address], [place] [address] Aug, [facility] [address] [id number] [address] [place] [address], [place] [address] July, [facility] [address] [id number] [address] [place] [address], [place] [address] July, [facility] [address] [id number] [address] [place] [address], [place] [address] July, [facility] [address] [id number] [address] [place] [address], [place] [address] Jun, [facility] [address] [id number] [address] [place] [address], [place] [address] Jun, [facility] [address] [id number] [address] [place] [address], [place] [address] Jun, [facility] [address] [id number] [address] [place] [address], [place] [address] Jun, [facility] [address] [id number] [address] [place] [address], [place] [address] May, [facility] [address] [id number] [address] [place] [address], [place] [address] May, [facility] [address] [id number] [address] [place] [address], [place] [address] Apr, [facility] [address] [id number] [address] [place] [address], [place] [address] Apr, [facility] [address] [id number] [address] [place] [address] Apr, [facility] [address] [id number] [address] [place] [address], [place] [address] Apr, [facility] [address] [id number] [address] [place] [address] Apr, [facility] [address] [id number] [address] [place] [address], [place] [address] Apr, [facility] [address] [id number] [address] [place] [id number] Apr, [facility] [address] [id number] [address] [place] [address] Apr, [facility] [address] [id number] [address] [place] [address], [place] [address] Mar, [facility] [address] [id number] [address] [place] [address], [place] [address] Mar, [facility] [address] [id number] [address] [place] [address], [place] [address] Mar, [facility] [address] [id number] [address] [place] [address], [place] [address] Mar, [facility] [address] [id number] [address] [place] [address], [place] [address] Jan, [facility] [address] [id number] [address] [place] [address], [place] [address] Jan, [facility] [address] [id number] [address] [place] [address], [place] [address] Jan, [facility] [address] [id number] [address] [place] [address], [place] [address] Jan, [facility] [address] [id number] [address] [place] [address], [place] [address] Jan, [facility] [address] [id number] [address] [place] [address], [place] [address] Dec, [facility] [address] [id number] [address] [place] [address], [place] [address] Dec, [facility] [address] [id number] [address] [place] [address] Dec, [facility] [address] [id number] [address] [place] [address], [place] [address] Dec, [facility] [address] [id number] [address] [place] [address], [place] [address] Nov, [facility] [address] [id number] [address] [place] [address], [place] [address] Oct, [facility] [address] [id number] [address] [place] [address], [place] [address] Oct, [facility] [address] [id number] [address] [place] [address], [place] [address] Oct, [facility] [address] [id number] [address] [place] [address], [place] [address] Oct, [facility] [address] [id number] [address] [place] [address], [place] [address] Oct, [facility] [address] [id number] [address] [place] [address], [place] [address] Sep, [facility] [address] [id number] [address] [place] [address], [place] [address] Sep, [facility] [address] [id number] [address] [place] [address], [place] [address] Aug, [facility] [address] [id number] [address] [place] [address], [place] [address] Aug, [facility] [address] [id number] [address] [place] [address], [place] [address] Aug, [facility] [address] [id number] [address] [place] [address], [place] [address] Aug, [facility] [address] [id number] [address] [place] [address], [place] [address] July, [facility] [address] [id number] [address] [place] [address], [place] [address] Jun, [facility] [address] [id number] [address] [place] [address], [place] [address] May, [facility] [address] [id number] [address] [place] [address], [place] [address] May, [facility] [address] [id number] [address] [place] [address], [place] [address] May, [facility] [address] [id number] [address] [place] [address], [place] [phone] Mar, [facility] [address] [id number] [address] [place] [phone] Feb, [facility] [address] [id number] [address] [place] [phone] Feb, [facility] [address] [id number] [address] [place] [id number] Jan, [facility] [address] [id number] [address] [place] [phone] Jan, [facility] [address] [id number] [address] [place] [phone] Jan, [facility] [address] [id number] [address] [place] [id number] Jan, [facility] [address] [id number] [address] [place] [phone] Jan, [facility] [address] [id number] [address] [place] [phone] Dec, [facility] [address] [id number] [address] [place] [phone] Dec, [facility] [address] [id number] [address] [place] [phone] Dec, [facility] [address] [id number] [address] [place] [phone] May, [facility] [address] [id number] [address] [place] [phone] May, [facility] [address] [id number] [address] [place] [phone] Apr, [facility] [address] [id number] [address] [place] [phone] Jan, [facility] [address] [id number] [address] [place] [id number] Apr, IMMUNIZATIONS No Known Immunizations SOCIAL HISTORY [...] for cancer Hospitalization History surgeries Hospitalization History [facility] ER, heart- kidney- Stayed a [facility] ICU 12/2017 Hospitalization History [facility] ER 03/2018 Hospitalization History [facility]- Stroke 2 weeks 06/2018 Hospitalization History ER 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
--- OUTSIDE RECORDS SUMMARY | 2019-10-19 08:27 | XMS REPORT ---
Author Author Luanne Carvalho Doctor Organization [facility] Address Unknown Phone Unavailable Care Team Providers Care President Practicing Urologist Name Role Phone Migration, Doctor Unavailable Unavailable PROBLEMS Type Condition ICD9-CM Code CTR15-NT Code Onset Dates Condition S tatus SNOMED Code Problem Mixed hyperlipidemia E78.2 Active 179521010 Problem Anxiety F41.9 Active 59709451 Problem Other organ or system involvement in systemic julito pus erythematosus M32.19 Active 94025990 Problem Episode of recurrent major d epressive disorder, unspecified depression episode severity F33.9 Active 946108075 Problem Asymptomatic menopausal state Z78.0 Active 16379210 Problem Systemic lupus erythematosus , unspecified SLE type, unspecified organ involvement status M32.9 Active 26099871 Problem Right renal artery stenosis I70.1 Ac tive [id number] Problem Type 2 diabetes mellitus with foot ulcer E11.621 Active 809022489171872 Problem Lumbago with sciatica, right side M54.41 Active 303754688 Problem Non-pressure chronic ulcer o f other part of unspecified foot limited to breakdown of skin L97.501 Active 676419691 Problem Other chronic pain G89.29 Active 8 1819390 Problem Other chronic pain G89.29 Active 8 4054796 Problem Acute right-sided low back pain with right-sided sciatica M54.41 Active 839806742 Problem 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.01 Active 334920021 Problem 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 65601365 Problem Frequent falls R29.6 Active 03848 2001 Problem HILARIO (obstructive sleep apnea) G47.33 Active 61054196 Problem Cerebrovascular accident (CV A) due to occlusion of other cerebral artery I63.59 Active 609001626 Problem Sciatica M54.30 Active 57901161 Problem Gangrene I96 Active 932032249 Problem Hepatitis C B19.20 Active 50436606 Problem Unsteady gait R26.81 Active 031097 008 Problem Seborrheic keratoses L82.1 Active 503294464 Problem Non-pressure chronic ulcer o f other part of unspecified foot limited to breakdown of skin L97.501 Active 194971624 Problem Urinary frequency R35.0 Active 16 5853606 Problem Necrosis I96 Active 684591809 Problem 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 Active 070575048 Problem Type 2 diabetes mellitus with foot ulcer E11.621 Active 638734539572775 Problem Arterial insufficiency of lower extremity I73.9 Active 528732277603180 Problem Ventricular tachycardia I47.2 Active 84887304 Problem Atherosclerosis of renal artery I70.1 Active 007723239859983 Problem tank terminal gauger 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 Z79 .01 Active 931206745 Problem 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 Active 808781665 Problem Chronic anticoagulation Z79.01 Active 232953209 Problem Sialoadenitis, unspecified K11.20 Act gulshan 27030125 Problem Current moderate episode of major depressive disorder without prior episode F32.1 Active 81213354 Problem Body mass index (BMI) 29.0-29.9, adult Z68.29 Active 166978700 Problem Systolic congestive heart failure, unspecified HF chronici ty I50.20 Active 64475351 Problem Hypertension I10 Active 0662422 3 Problem Cardiomyopathy of undetermined type I42.9 Active 45743169 ALLERGIES No Information ENCOUNTERS Encounter Location Date Diagnosis [place] [address] [address] [facility] [id number] [address] [place] [id number] 10 Aug, 2019 [place] [address] [address] [facility] [id number] [address] [place] [phone] 30 Jun, 2019 Other chronic pain G89.29 [place] [address] [address] [facility] [id number] [address] [place] [phone] 14 Jun, 2019 Frequent headaches R51 [place] [address] [address] [facility] [id number] [address] [place] [phone] 03 Jun, 2019 Systolic congestive heart fa ilure, unspecified HF chronicity I50.20 ; Type 2 diabetes mellitus with foot ulcer E11.621 and Coronary artery disease of [place] artery of [place] heart with stable angina pectoris I25.118 [place] [address] [place] [id number] [address] [place] [phone] Jun, Other chronic pain G89.29 [facility] [place] [address] [address] 16 May, 2019 [facility] [place] [address] [place] [id number] [address] [place] [phone] May, Other chronic pain G89.29 [facility] [place] [address] [address] 20 Apr, 2019 Atherosclerosis of renal art taurus I70.1 ; Cardiomyopathy of undetermined type I42.9 and Ventricular tachycardia I47.2 [place] [address] [id number] 14 Apr, 2019 [facility] [address] [address] Apr, Non-intractable vomiting wit h nausea, unspecified vomiting type R11.2 [facility] [place] [address] [address] 03 Apr, 2019 Other chronic pain G89.29 [facility] [place] [address] [address] Mar, Other chronic pain G89.29 [facility] [place] [address] [address] Feb, Renal insufficiency N28.9 [facility] [place] [address] [address] Feb, [facility] [place] [address] [place] [id number] [place] [phone] Feb, Frequent headaches R51 and H ypertension I10 [facility] [place] [address] [place] [id number] [address] [place] [phone] Feb, Other chronic pain G89.29 [facility] [place] [address] [address] 27 Jan, 2019 Encounter for Medicare rigoberto [...] [facility] [place] [address] [id number] [address] [place] [phone] 22 Jan, 2019 [place] [address] [facility] [id number] [address] [place] [phone] 13 Jan, 2019 Other chronic pain G89.29 [place] [address] [facility] [id number] [address] [place] [phone] 28 Dec, 2018 [place] [address] [facility] [id number] [address] [place] [phone] 15 Dec, 2018 Hypokalemia E87.6 [place] [address] [facility] [id number] [address] [place] [phone] 15 Dec, 2018 Nausea R11.0 [place] [address] [facility] [id number] [address] [place] [id number] 14 Dec, 2018 Other chronic pain G89.29 [facility] [place] [address] [facility] [id number] [address] [place] [id number] 10 Dec, 2018 Systolic congestive heart fa ilure, unspecified HF chronicity I50.20 and Ventricular tachycardia I47.2 [place] [address] [id number] [address] [place] [phone] 08 Dec, 2018 [place] [address] [facility] [id number] [address] [place] [id number] 17 Nov, 2018 Other chronic pain G89.29 [place] [address] [facility] [id number] [address] [place] [phone] Nov, Nausea with vomiting, unspec ified R11.2 [facility] [place] [address] [place] [phone] Oct, [facility] [place] [address] [address] Oct, Other chronic pain G89.29 [place] [address] [address] Oct, [place] [address] [address] Oct, Arterial insufficiency of lo wer extremity I73.9 and High risk medication use Z79.899 [facility] [address] [address] Oct, Type 2 diabetes mellitus wit h foot ulcer E11.621 and Non-pressure chronic ulcer of other part of unspecified foot limited to breakdown of skin L97.501 [facility] [address] [address] Oct, Gangrene I96 [place] [address] [address] Sep, Other chronic pain G89.29 [place] [address] [address] Sep, Status post CVA Z86.73 ; Uns teady gait R26.81 and Frequent falls R29.6 [place] [address] [place] [id number] [address] [place] [phone] Sep, Nausea with vomiting, unspec ified R11.2 [place] [address] [address] Sep, Other chronic pain G89.29 [place] [address] [address] Aug, [place] [address] [address] Aug, Other chronic pain G89.29 [place] [address] [id number] [address] [place] [phone] July, tank terminal gauger current use of ant icoagulant Z79.01 and Cerebrovascular accident (CVA) due to occlusion of other cerebral artery I63.59 [place] [address] [id number] [address] [place] [phone] July, Renal insufficiency N28.9 [place] [address] [id number] [address] [place] [phone] July, Cerebrovascular accident (CV A) due to occlusion of other cerebral artery I63.59 and Unexplained weight loss R63.4 [place] [address] [id number] [address] [place] [phone] July, [place] [address] [facility] [id number] [address] [place] [phone] July, [place] [address] [facility] [id number] [address] [place] [phone] July, Unexplained weight loss R63. 4 and 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.01 [place] [address] [facility] [id number] [address] [place] [phone] July, Other chronic pain G89.29 [place] [address] [facility] [id number] [address] [place] [phone] Jun, Other chronic pain G89.29 [place] [address] [id number] [address] [place] [address] May, Unexplained weight loss R63. 4 [place] [address] [facility] [id number] [address] [place] [phone] May, Nausea with vomiting, unspec ified R11.2 [place] [address] [facility] [id number] [address] [place] [phone] May, Non-recurrent acute suppurat gulshan otitis media of right ear without spontaneous rupture of tympanic membrane H66.001 and Chronic anticoagulation Z79.01 [facility] [place] [address] [id number] [address] [place] [phone] May, Other chronic pain G89.29 [facility] [address] [id number] [address] [place] [phone] 28 Apr, 2018 Skin tear of right forearm w ithout complication, initial encounter S51.811A ; Skin tear of left forearm without complication, initial encounter S51.812A and Encounter for immunization Z23 [facility] [place] [address] [id number] [address] [place] [phone] Apr, [facility] [place] [address] [facility] [id number] [address] [place] [phone] Apr, Diarrhea, unspecified R19.7 ; Nausea with vomiting, unspecified R11.2 and 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 [facility] [place] [address] [facility] [id number] [address] [place] [phone] 05 Apr, 2018 Other chronic pain G89.29 [facility] [place] [address] [facility] [id number] [address] [place] [phone] Mar, Other chronic pain G89.29 [place] [address] [id number] [address] [place] [id number] Mar, Other chronic pain G89.29 [facility] [place] [address] [id number] [address] [place] [phone] Mar, [facility] [place] [address] [facility] [id number] [address] [place] [phone] Mar, Other organ or system involv ement in systemic lupus erythematosus M32.19 [facility] [place] [address] [facility] [id number] [address] [place] [phone] 02 Mar, 2018 Non-recurrent acute suppurat gulshan otitis media of right ear without spontaneous rupture of tympanic membrane H66.001 and Chronic anticoagulation Z79.01 [facility] [address] [id number] [address] [place] [phone] Feb, Sialoadenitis, unspecified K 11.20 [facility] [place] [address] [facility] [id number] [address] [place] [id number] 07 Feb, 2018 Other chronic pain G89.29 [facility] [place] [address] [facility] [id number] [address] [place] [phone] Jan, group home current use of ant icoagulant therapy Z79.01 [place] [address] [facility] [id number] [address] [place] [phone] Jan, Other chronic pain G89.29 ; Lumbago with sciatica, right side M54.41 ; Other chronic pain G89.29 ; Tobacco abuse Z72.0 ; Tobacco abuse counseling Z71.6 ; Mixed hyperlipidemia E78.2 and tank terminal gauger 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 Z79.01 [place] [address] [facility] [id number] [address] [place] [phone] Jan, [facility] [place] [address] [facility] [id number] [address] [place] [phone] Dec, [place] [address] [facility] [id number] [address] [place] [phone] Dec, [facility] [place] [address] [facility] [id number] [address] [place] [phone] Dec, [place] [address] [facility] [id number] [address] [place] [phone] Dec, Mixed hyperlipidemia E78.2 ; Other chronic [...] involvement in systemic lupus erythematosus M32.19 [facility] [address] [place] [id number] Dec, Right renal artery stenosis I70.1 ; Othe r organ or system involvement in systemic lupus erythematosus M32.19 ; Hepatitis C B19.20 ; Tobacco abuse Z72.0 and Weakness R53.1 Via [facility] [employer] internation [facility] [address] [place] [id number] Dec, [facility] [place] [address] [id number] [address] [place] [phone] Dec, [facility] [place] [address] [id number] [address] [place] [phone] Dec, Other organ or system involv ement in systemic lupus erythematosus M32.19 [facility] [address] [place] [id number] Dec, Right renal artery stenosis I70.1 ; Inju ry of right kidney, sequela S37.001S ; Tobacco abuse Z72.0 ; Systemic lupus erythematosus, unspecified SLE type, unspecified organ involvement status M32.9 ; Hepatitis C B19.20 and Candidiasis of female genitalia B37.3 [facility] [place] [address] [id number] [address] [place] [phone] Dec, Other organ or system involv ement in systemic lupus erythematosus M32.19 [facility] [place] [address] [id number] [address] [place] [phone] Dec, Other organ or system involv ement in systemic lupus erythematosus M32.19 [facility] [place] [address] [id number] [address] [place] [phone] Dec, [facility] [place] [address] [id number] [address] [place] [phone] Nov, Other organ or system involv ement in systemic lupus erythematosus M32.19 [facility] [place] [address] [id number] [address] [place] [phone] Oct, Other organ or system involv ement in systemic lupus erythematosus M32.19 [facility] [place] [address] [facility] [id number] [address] [place] [phone] Sep, Other organ or system involv ement in systemic lupus erythematosus M32.19 [facility] [place] [address] [facility] [id number] [address] [place] [phone] Aug, Anxiety F41.9 [facility] [place] [address] [facility] [id number] [address] [place] [phone] Aug, Other organ or system involv ement in systemic lupus erythematosus M32.19 [facility] [place] [address] [facility] [id number] [address] [place] [phone] July, Medicare annual wellness vis it, initial Z00.00 ; Anxiety F41.9 ; HILARIO (obstructive sleep apnea) G47.33 ; Hepatitis C B19.20 ; Other chronic pain G89.29 ; Asymptomatic menopausal state Z78.0 and Episode of recurrent major depressive disorder, unspecified depression episode severity F33.9 [facility] [place] [address] [facility] [id number] [address] [place] [phone] July, Anxiety F41.9 [facility] [place] [address] [facility] [id number] [address] [place] [phone] July, Other organ or system involv ement in systemic lupus erythematosus M32.19 [facility] [place] [address] [facility] [id number] [address] [place] [phone] July, [facility] [place] [address] [facility] [id number] [address] [place] [address] Jun, Other organ or system involv ement in systemic lupus erythematosus M32.19 ; BMI 40.0-44.9, adult Z68.41 ; Other chronic pain G89.29 and Controlled substance agreement signed Z79.899 [facility] [place] [address] [facility] [id number] [address] [place] [address] May, Sciatica M54.30 [facility] [place] [address] [facility] [id number] [address] [place] [phone] Apr, Sciatica M54.30 [facility] [place] [address] [id number] [address] [place] [address] Mar, Sciatica M54.30 [facility] [place] [address] [id number] [address] [place] [phone] Feb, Sciatica M54.30 [facility] [place] [address] [id number] [address] [place] [phone] Jan, Sciatica M54.30 [facility] [place] [address] [id number] [address] [place] [address] 14 Jan, 2017 Sciatica M54.30 [facility] [place] [address] [id number] [address] [place] [phone] 19 Dec, 2016 Sciatica M54.30 [place] [address] [facility] [id number] [address] [place] [id number] 18 Dec, 2016 Sciatica M54.30 [place] [address] [facility] [id number] [address] [place] [phone] 29 Nov, 2016 Mixed hyperlipidemia E78.2 ; Chronic seasonal allergic rhinitis due to other allergen J30.2 and Family history of early CAD Z82.49 [place] [address] [facility] [id number] [address] [place] [address] 21 Nov, 2016 Sciatica M54.30 [place] [address] [id number] [address] [place] [address] 18 Nov, 2016 Mixed hyperlipidemia E78.2 ; Chronic seasonal allergic rhinitis due to other allergen J30.2 ; Family history of early CAD Z82.49 ; Other chronic pain G89.29 and Pain in left shoulder M25.512 [facility] [place] [address] [id number] [address] [place] [phone] 11 Nov, 2016 Acute pain of left shoulder M25.512 [facility] [place] [address] [id number] [address] [place] [address] Oct, Sciatica M54.30 [facility] [place] [address] [place] [id number] [address] [place] [phone] Oct, [facility] [place] [address] [place] [address] Sep, Sciatica M54.30 [facility] [place] [address] [facility] [id number] [address] [place] [address] Sep, Acute pain of left shoulder M25.512 [facility] [place] [address] [place] [address] Sep, Acute pain of left shoulder M25.512 [facility] [place] [address] [place] [id number] [address] [place] [phone] Aug, Sciatica M54.30 [facility] [place] [address] [place] [id number] [place] [address] Aug, Sciatica M54.30 ; Tobacco ab use Z72.0 and Tobacco abuse counseling Z71.6 [facility] [place] [address] [place] [phone] Aug, Acute pain of left shoulder M25.512 [facility] [address] [address] Aug, Contusion of right shoulder, initial encounter S40.011A ; Acute pain of left shoulder M25.512 and Shortness of breath R06.02 [facility] [place] [address] [place] [id number] [address] [place] [address] Aug, Lumbago with sciatica, right side M54.41 [place] [address] [place] [address] July, [facility] [place] [address] [place] [id number] [place] [address] July, Lumbago with sciatica, right side M54.41 [facility] [place] [address] [place] [id number] [address] [place] [address] Jun, Lumbago with sciatica, right side M54.41 [facility] [place] [address] [id number] [address] [place] [phone] May, Lumbago with sciatica, right side M54.41 [facility] [address] [facility] [id number] [address] [place] [phone] May, Herpes zoster without compli cation B02.9 [facility] [address] [facility] [id number] [address] [place] [address] May, Back pain M54.9 and Acute ri ght-sided low back pain with right-sided sciatica M54.41 [facility] [place] [address] [place] [id number] [address] [place] [phone] Apr, [facility] [place] [address] [place] [id number] [place] [address] Apr, Lumbago with sciatica, right side M54.41 and Other chronic pain G89.29 [facility] [place] [address] [place] [id number] [address] [place] [address] Apr, [facility] [place] [address] [place] [id number] [place] [phone] Mar, [facility] [place] [address] [place] [id number] [address] [place] [phone] Mar, [facility] [place] [address] [place] [id number] [address] [place] [phone] Feb, [facility] [address] [facility] [id number] [address] [place] [address] Jan, Urinary frequency R35.0 [facility] [place] [address] [place] [id number] [address] [place] [phone] Jan, [facility] [place] [address] [facility] [id number] [address] [place] [phone] Dec, [facility] [place] [address] [place] [id number] [address] [place] [id number] Oct, [facility], [place] [address] [id number] [address] [place] [id number] Sep, [facility] [address] [id number] [address] [place] [phone] Sep, Foreign body in left foot, i nitial encounter [id number] [facility], [place] [address] [id number] [address] [place] [phone] Aug, [facility], [place] [address] [id number] [address] [place] [phone] July, Sciatica [id number] [facility], [place] [address] [id number] [address] [place] [phone] Jun, [facility] [facility] [place] [address] [id number] [address] [place] [address] May, Osteoarthritis M19.90 [facility] [place] [address] [id number] [address] [place] [address] May, [facility] [place] [address] [id number] [address] [place] [address] May, Pain in right hip M25.551 [facility] [address] [id number] [address] [place] [address] May, Tinea corporis B35.4 [facility] [place] [address] [id number] [address] [place] [address] Apr, Pain in right hip M25.551 [facility] [place] [address] [id number] [address] [place] [address] Mar, Pain in right hip M25.551 [facility] [place] [address] [id number] [address] [place] [address] Mar, [facility] [place] [address] [id number] [address] [place] [address] Feb, Pain in right hip M25.551 [facility] [place] [address] [id number] [address] [place] [address] Jan, Acute bronchitis, unspecifie d organism J20.9 and Cough R05 [facility] [place] [address] [id number] [address] [place] [address] Jan, Pain in right hip M25.551 [facility] [place] [address] [id number] [address] [place] [address] Dec, Pain in right hip M25.551 [facility] [place] [address] [id number] [address] [place] [address] Nov, Acute bronchitis 466.0 [facility] [place] [address] [id number] [address] [place] [address] Nov, [facility] [place] [address] [id number] [address] [place] [address] Oct, [facility] [place] [address] [id number] [address] [place] [address] Sep, [facility] [place] [address] [id number] [address] [place] [address] Aug, [facility] [place] [address] [id number] [address] [place] [address] July, [facility] [place] [address] [id number] [address] [place] [address] Jun, [facility] [place] [address] [id number] [address] [place] [address] Jun, [facility] [place] [address] [id number] [address] [place] [address] May, [facility] [place] [address] [id number] [address] [place] [address] May, [facility] [place] [address] [id number] [address] [place] [address] Apr, [facility] [place] [address] [id number] [address] [place] [id number] 17 Apr, 2014 [facility] [address] [id number] [address] [place] [address], [place] [address] Apr, 2014 [facility] [address] [id number] [address] [place] [address], [place] [address] Apr, 2014 [facility] [address] [id number] [address] [place] [address], [place] [address] 06 Apr, 2014 [facility] [address] [id number] [address] [place] [address], [place] [address] Apr, 2014 [facility] [address] [id number] [address] [place] [address], [place] [address] Mar, [facility] [address] [id number] [address] [place] [address], [place] [address] Mar, [facility] [address] [id number] [address] [place] [address] Feb, [facility] [address] [id number] [address] [place] [address] Feb, [facility] [address] [id number] [address] [place] [address], [place] [address] Feb, [facility] [address] [id number] [address] [place] [address], [place] [address] Dec, [facility] [address] [id number] [address] [place] [address], [place] [address] Dec, [facility] [address] [id number] [address] [place] [address] Nov, [facility] [address] [id number] [address] [place] [address], [place] [address] Nov, [facility] [address] [id number] [address] [place] [address], [place] [address] Nov, [facility] [address] [id number] [address] [place] [address], [place] [address] Nov, 2013 [facility] [address] [id number] [facility] [place] [address] Sep, [facility] [address] [id number] [address] [place] [address], [place] [address] Sep, [facility] [address] [id number] [address] [place] [address], [place] [address] Sep, [facility] [address] [id number] [address] [place] [address], [place] [address] Sep, [facility] [address] [id number] [address] [place] [address], [place] [address] Aug, [facility] [address] [id number] [address] [place] [address], [place] [address] Aug, [facility] [address] [id number] [address] [place] [address], [place] [address] Aug, [facility] [address] [id number] [address] [place] [address], [place] [address] Aug, [facility] [address] [id number] [address] [place] [address], [place] [address] July, [facility] [address] [id number] [address] [place] [address], [place] [address] July, [facility] [address] [id number] [address] [place] [address], [place] [address] Jun, [facility] [address] [id number] [address] [place] [address], [place] [address] Jun, [facility] [address] [id number] [address] [place] [address], [place] [address] Jun, [facility] [address] [id number] [address] [place] [address], [place] [address] Jun, [facility] [address] [id number] [address] [place] [address], [place] [address] Jun, [facility] [address] [id number] [address] [place] [address], [place] [address] Jun, [facility] [address] [id number] [facility] [place] [address] Jun, [facility] [address] [id number] [address] [place] [address], [place] [address] Jun, [facility] [address] [id number] [facility] [place] [address] May, [facility] [address] [id number] [address] [place] [address], [place] [address] May, [facility] [address] [id number] [address] [place] [address], [place] [address] May, [facility] [address] [id number] [address] [place] [address], [place] [address] May, [facility] [address] [id number] [address] [place] [address], [place] [address] May, [facility] [address] [id number] [address] [place] [address], [place] [address] May, [facility] [address] [id number] [address] [place] [address], [place] [address] Apr, [facility] [address] [id number] [address] [place] [address], [place] [address] Apr, [facility] [address] [id number] [address] [place] [address], [place] [address] Apr, [facility] [address] [id number] [address] [place] [address], [place] [address] Apr, [facility] [address] [id number] [address] [place] [address], [place] [address] Mar, [facility] [address] [id number] [address] [place] [address], [place] [address] Mar, [facility] [address] [id number] [address] [place] [address], [place] [address] Mar, [facility] [address] [id number] [address] [place] [address], [place] [address] Mar, [facility] [address] [id number] [address] [place] [address], [place] [address] Mar, [facility] [address] [id number] [address] [place] [address], [place] [address] Mar, [facility] [address] [id number] [address] [place] [address], [place] [address] Feb, [facility] [address] [id number] [address] [place] [address], [place] [address] Feb, [facility] [address] [id number] [address] [place] [address], [place] [address] Feb, [facility] [address] [id number] [address] [place] [address], [place] [address] Feb, [facility] [address] [id number] [address] [place] [address], [place] [address] Feb, [facility] [address] [id number] [address] [place] [address], [place] [address] Feb, [facility] [address] [id number] [address] [place] [address], [place] [address] Feb, [facility] [address] [id number] [address] [place] [address], [place] [address] Feb, [facility] [address] [id number] [address] [place] [address], [place] [address] Feb, [facility] [address] [id number] [address] [place] [address], [place] [address] Feb, [facility] [address] [id number] [address] [place] [address], [place] [address] Feb, [facility] [address] [id number] [address] [place] [address], [place] [address] Feb, [facility] [address] [id number] [address] [place] [address], [place] [address] Jan, [facility] [address] [id number] [address] [place] [address], [place] [address] Jan, [facility] [address] [id number] [address] [place] [address], [place] [address] Jan, [facility] [address] [id number] [address] [place] [address], [place] [address] Jan, [facility] [address] [id number] [address] [place] [address], [place] [address] Jan, [facility] [address] [id number] [address] [place] [address], [place] [address] Jan, [facility] [address] [id number] [address] [place] [address], [place] [address] Jan, [facility] [address] [id number] [address] [place] [address], [place] [address] Jan, [facility] [address] [id number] [address] [place] [address], [place] [address] Jan, [facility] [address] [id number] [address] [place] [address], [place] [address] Jan, [facility] [address] [id number] [address] [place] [address], [place] [address] Dec, [facility] [address] [id number] [address] [place] [address], [place] [address] Dec, [facility] [address] [id number] [address] [place] [address], [place] [address] Nov, [facility] [address] [id number] [address] [place] [address], [place] [address] Nov, [facility] [address] [id number] [address] [place] [address], [place] [address] Nov, [facility] [address] [id number] [address] [place] [address], [place] [address] 05 Nov, 2012 [facility] [address] [id number] [address] [place] [address] [place] [address] Nov, [facility] [address] [id number] [address] [place] [address], [place] [address] Oct, [facility] [address] [id number] [address] [place] [address], [place] [address] Oct, [facility] [address] [id number] [address] [place] [address], [place] [address] Oct, [facility] [address] [id number] [address] [place] [address], [place] [address] Oct, [facility] [address] [id number] [address] [place] [address], [place] [address] Oct, [facility] [address] [id number] [address] [place] [address], [place] [address] Sep, [facility] [address] [id number] [address] [place] [address], [place] [address] Sep, [facility] [address] [id number] [address] [place] [address], [place] [address] Sep, [facility] [address] [id number] [address] [place] [address], [place] [address] Sep, [facility] [address] [id number] [address] [place] [address], [place] [address] Sep, [facility] [address] [id number] [address] [place] [address], [place] [address] Sep, [facility] [address] [id number] [address] [place] [address], [place] [address] Aug, [facility] [address] [id number] [address] [place] [address], [place] [address] Aug, [facility] [address] [id number] [address] [place] [address], [place] [address] July, [facility] [address] [id number] [address] [place] [address], [place] [address] July, [facility] [address] [id number] [address] [place] [address], [place] [address] July, [facility] [address] [id number] [address] [place] [address], [place] [address] Jun, [facility] [address] [id number] [address] [place] [address], [place] [address] Jun, [facility] [address] [id number] [address] [place] [address], [place] [address] Jun, [facility] [address] [id number] [address] [place] [address], [place] [address] Jun, [facility] [address] [id number] [address] [place] [address], [place] [address] May, [facility] [address] [id number] [address] [place] [address], [place] [address] May, [facility] [address] [id number] [address] [place] [address], [place] [address] Apr, [facility] [address] [id number] [address] [place] [address], [place] [address] Apr, [facility] [address] [id number] [address] [place] [address] Apr, [facility] [address] [id number] [address] [place] [address] Apr, [facility] [address] [id number] [address] [place] [address] Apr, [facility] [address] [id number] [address] [place] [address] Apr, [facility] [address] [id number] [address] [place] [id number] Apr, [facility] [address] [id number] [address] [place] [address] Apr, [facility] [address] [id number] [address] [place] [address] Mar, [facility] [address] [id number] [address] [place] [address], [place] [address] Mar, [facility] [address] [id number] [address] [place] [address], [place] [address] Mar, [facility] [address] [id number] [address] [place] [address], [place] [address] Mar, [facility] [address] [id number] [address] [place] [address], [place] [address] Jan, [facility] [address] [id number] [address] [place] [address], [place] [address] Jan, [facility] [address] [id number] [address] [place] [address], [place] [address] Jan, [facility] [address] [id number] [address] [place] [address], [place] [address] Jan, [facility] [address] [id number] [address] [place] [address], [place] [address] Jan, [facility] [address] [id number] [address] [place] [address], [place] [address] Dec, [facility] [address] [id number] [address] [place] [address], [place] [address] Dec, [facility] [address] [id number] [address] [place] [address], [place] [address] Dec, [facility] [address] [id number] [address] [place] [address], [place] [address] Dec, [facility] [address] [id number] [address] [place] [address], [place] [address] Nov, [facility] [address] [id number] [address] [place] [address], [place] [address] Oct, [facility] [address] [id number] [address] [place] [address], [place] [address] Oct, [facility] [address] [id number] [facility] [place] [address] Oct, [facility] [address] [id number] [address] [place] [address], [place] [address] Oct, [facility] [address] [id number] [address] [place] [address], [place] [address] Oct, [facility] [address] [id number] [address] [place] [address], [place] [address] Sep, [facility] [address] [id number] [address] [place] [address], [place] [address] Sep, [facility] [address] [id number] [address] [place] [address], [place] [address] Aug, [facility] [address] [id number] [address] [place] [address], [place] [address] Aug, [facility] [address] [id number] [address] [place] [address], [place] [address] Aug, [facility] [address] [id number] [address] [place] [address], [place] [address] Aug, [facility] [address] [id number] [address] [place] [address], [place] [address] July, [facility] [address] [id number] [address] [place] [address], [place] [address] Jun, [facility] [address] [id number] [address] [place] [address], [place] [address] May, [facility] [address] [id number] [address] [place] [address], [place] [address] May, [facility] [address] [id number] [address] [place] [address], [place] [address] May, [facility] [address] [id number] [address] [place] [address], [place] [address] Mar, [facility] [address] [id number] [address] [place], [place] [address] [address] Feb, [facility] [place] [address] [id number] [address] [place] [phone] Feb, [facility] [place] [address] [id number] [address] [place] [phone] Jan, [facility] [place] [address] [id number] [address] [place] [phone] Jan, [facility] [place] [address] [id number] [address] [place] [phone] Jan, [facility] [place] [address] [id number] [address] [place] [phone] Jan, [facility] [place] [address] [id number] [address] [place] [phone] Jan, [facility] [place] [address] [id number] [address] [place] [phone] Dec, [facility], [place] [address] [id number] [address] [place] [phone] Dec, [facility], [place] [address] [id number] [address] [place] [phone] Dec, [facility], [place] [address] [id number] [address] [place] [phone] May, [facility] [place] [address] [id number] [address] [place] [phone] May, [facility] [place] [address] [id number] [address] [place] [phone] Apr, [facility], [place] [address] [id number] [address] [place] [phone] Jan, [facility], [place] [address] [id number] [address] [place] [phone] Apr, IMMUNIZATIONS No Known Immunizations SOCIAL HISTORY Never Assessed REASON FOR VISIT PLAN OF CARE VITAL SIGNS Height 62 in 2011-09-10 Weight 214.1 lbs 2011-09-10 Temperature 98.6 degrees Fahrenheit 2011-09-10 Heart Rate 78 bpm 2011-09-10 Respiratory Rate 18 2011-09-10 Blood pressure systolic 130 mmHg 2011-09-10 Blood pressure diastolic 84 mmHg 2011-09-10 MEDICATIONS Unknown Medications RESULTS No Results PROCEDURES Procedure Date Ordered Result Body Site SCR PAP SMER;NEW PT OBTAIN PREP&CONVY-LAB September 10, 2011 CYTOPATH C/V AUTO FLUID REDO September 10, 2011 INSTRUCTIONS MEDICATIONS ADMINISTERED No Known Medications MEDICAL [...] for cancer Hospitalization History surgeries Hospitalization History [facility] ER, heart- kidney- Stayed a [facility] ICU 12/2017 Hospitalization History [facility] ER 03/2018 Hospitalization History [facility]- Stroke 2 weeks 06/2018 Hospitalization History ER 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
--- OUTSIDE RECORDS SUMMARY | 2019-10-19 08:27 | XMS REPORT ---
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 Name Role Phone CHRISTA GLORIA Unavailable PROBLEMS Type Condition ICD9-CM Code GHD88-BS Code Onset Dates Condition S tatus SNOMED Code Problem Mixed hyperlipidemia E78.2 Active 886962697 Problem Anxiety F41.9 Active 44455242 Problem Other organ or system involvement in systemic julito pus erythematosus M32.19 Active 87707817 Problem Episode of recurrent major d epressive disorder, unspecified depression episode severity F33.9 Active 796414397 Problem Asymptomatic menopausal state Z78.0 Active 02764767 Problem Systemic lupus erythematosus , unspecified SLE type, unspecified organ involvement status M32.9 Active 03702302 Problem Right renal artery stenosis I70.1 Ac tive [id number] Problem Type 2 diabetes mellitus with foot ulcer E11.621 Active 004786218672155 Problem Lumbago with sciatica, right side M54.41 Active 861709901 Problem Non-pressure chronic ulcer o f other part of unspecified foot limited to breakdown of skin L97.501 Active 136440979 Problem Other chronic pain G89.29 Active 8 3557179 Problem Other chronic pain G89.29 Active 8 2860888 Problem Acute right-sided low back pain with right-sided sciatica M54.41 Active 452509523 Problem nursing home current use of anticoagulant Z79.01 Active 083938116 Problem 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 45288726 Problem Frequent falls R29.6 Active 03427 2001 Problem HILARIO (obstructive sleep apnea) G47.33 Active 70212429 Problem Cerebrovascular accident (CV A) due to occlusion of other cerebral artery I63.59 Active 477815705 Problem Sciatica M54.30 Active 16373139 Problem Gangrene I96 Active 643472634 Problem Hepatitis C B19.20 Active 10944657 Problem Unsteady gait R26.81 Active 606827 008 Problem Seborrheic keratoses L82.1 Active 952839831 Problem Non-pressure chronic ulcer o f other part of unspecified foot limited to breakdown of skin L97.501 Active 372310018 Problem Urinary frequency R35.0 Active 16 6149102 Problem Necrosis I96 Active 338757058 Problem 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 Active 618481614 Problem Type 2 diabetes mellitus with foot ulcer E11.621 Active 319962821222913 Problem Arterial insufficiency of lower extremity I73.9 Active 709336409014929 Problem Ventricular tachycardia I47.2 Active 02329771 Problem Atherosclerosis of renal artery I70.1 Active 282949700212841 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 Active 337327904 Problem 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 Active 602966298 Problem Chronic anticoagulation Z79.01 Active 391011608 Problem Sialoadenitis, unspecified K11.20 Act gulshan 35963180 Problem Current moderate episode of major depressive disorder without prior episode F32.1 Active 42726496 Problem Body mass index (BMI) 29.0-29.9, adult Z68.29 Active 231355260 Problem Systolic congestive heart failure, unspecified HF chronici ty I50.20 Active 66827976 Problem Hypertension I10 Active 5725079 3 Problem Cardiomyopathy of undetermined type I42.9 Active 57585014 ALLERGIES No Information ENCOUNTERS Encounter Location Date Diagnosis [place] [address] [id number] [place] [address] 10 Aug, 2019 [place] [facility] [id number] [address] [place] [address] 30 Jun, 2019 Other chronic pain G89.29 [place] [address] [address] [facility] [id number] [address] [place] [address] 14 Jun, 2019 Frequent headaches R51 [place] [address] [address] [facility] [id number] [address] [place] [address] 03 Jun, 2019 Systolic congestive heart fa ilure, unspecified HF chronicity I50.20 ; Type 2 diabetes mellitus with foot ulcer E11.621 and Coronary artery disease of [place] artery of [place] heart with stable angina pectoris I25.118 [facility] [address] [place] [id number] [place] [address] Jun, Other chronic pain G89.29 [facility] [address] [place] [id number] [address] [place] [address] 16 May, 2019 [facility] [address] [address] May, Other chronic pain G89.29 [facility] [address] [place] [id number] [place] [address] 20 Apr, 2019 Atherosclerosis of renal art taurus I70.1 ; Cardiomyopathy of undetermined type I42.9 and Ventricular tachycardia I47.2 [facility] [address] [place] [id number] [place] [address] 14 Apr, 2019 [facility] [address] [place] [id number] [place] [address] Apr, Non-intractable vomiting wit h nausea, unspecified vomiting type R11.2 [facility] [address] [address] 03 Apr, 2019 Other chronic pain G89.29 [facility] [address] [place] [id number] [place] [address] Mar, Other chronic pain G89.29 [facility] [address] [address] Feb, Renal insufficiency N28.9 [facility] [address] [place] [id number] [place] [address] Feb, [facility] [address] [address] Feb, Frequent headaches R51 and H ypertension I10 [facility] [address] [place] [id number] [place] [address] Feb, Other chronic pain G89.29 [facility] [address] [id number] [address] [place] [address] 27 Jan, 2019 Encounter for Medicare rigoberto [...] episode F32.1 and Encounter for immunization Z23 [place] [address] [address] [facility] [id number] [address] [place] [address] 22 Jan, 2019 [place] [address] [address] [facility] [id number] [address] [place] [address] 13 Jan, 2019 Other chronic pain G89.29 [place] [address] [address] [facility] [id number] [address] [place] [address] 28 Dec, 2018 [place] [address] [address] [facility] [id number] [address] [place] [address] 15 Dec, 2018 Hypokalemia E87.6 [place] [address] [address] [facility] [id number] [address] [place] [address] 15 Dec, 2018 Nausea R11.0 [place] [address] [address] [facility] [id number] [address] [place] [address] 14 Dec, 2018 Other chronic pain G89.29 [place] N [facility] [id number] [address] [place] [address] 10 Dec, 2018 Systolic congestive heart fa ilure, unspecified HF chronicity I50.20 and Ventricular tachycardia I47.2 [place] [address] [address] [facility] [id number] [address] [place] [address] 08 Dec, 2018 [place] [address] [address] [facility] [id number] [address] [place] [address] 17 Nov, 2018 Other chronic pain G89.29 [place] [address] [address] Nov, Nausea with vomiting, unspec ified R11.2 [place] [address] [address] Oct, [place] [address] [place] [id number] [place] [address] Oct, Other chronic pain G89.29 [place] [address] [address] Oct, [place] [address] [address] Oct, Arterial insufficiency of lo wer extremity I73.9 and High risk medication use Z79.899 [facility] [address] [address] Oct, Type 2 diabetes mellitus wit h foot ulcer E11.621 and Non-pressure chronic ulcer of other part of unspecified foot limited to breakdown of skin L97.501 [facility] [address] [address] Oct, Gangrene I96 [place] [address] [address] Sep, Other chronic pain G89.29 [place] [address] [address] Sep, Status post CVA Z86.73 ; Uns teady gait R26.81 and Frequent falls R29.6 [place] [address] [address] Sep, Nausea with vomiting, unspec ified R11.2 [place] [address] [place] [id number] [place] [address] Sep, Other chronic pain G89.29 [place] [address] [address] Aug, [place] [address] [facility] [id number] [address] [place] [address] Aug, Other chronic pain G89.29 [place] [address] [address] [facility] [id number] [address] [place] [address] July, nursing home current use of ant icoagulant Z79.01 and Cerebrovascular accident (CVA) due to occlusion of other cerebral artery I63.59 [place] [address] [address] [facility] [id number] [address] [place] [address] July, Renal insufficiency N28.9 [place] [address] [address] [facility] [id number] [address] [place] [address] July, Cerebrovascular accident (CV A) due to occlusion of other cerebral artery I63.59 and Unexplained weight loss R63.4 [place] [address] [place] [id number] [address] [place] [address] July, [place] [address] [address] [facility] [id number] [address] [place] [address] July, [place] [address] [address] [facility] [id number] [address] [place] [address] July, Unexplained weight loss R63. 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 4 [place] [address] [address] [place] [id number] [address] [place] [address] May, Nausea with vomiting, unspec ified R11.2 [place] [address] [address] [place] [id number] [address] [place] [address] May, Non-recurrent acute suppurat gulshan otitis media of right ear without spontaneous rupture of tympanic membrane H66.001 and Chronic anticoagulation Z79.01 [facility] [address] [id number] [address] [place] [address] May, Other chronic pain G89.29 [facility] [address] [id number] [address] [place] [address] Apr, Skin tear of right forearm w ithout complication, initial encounter S51.811A ; Skin tear of left forearm without complication, initial encounter S51.812A and Encounter for immunization Z23 [facility] [address] [id number] [address] [place] [address] Apr, [facility] [address] [id number] [address] [place] [address] Apr, Diarrhea, unspecified R19.7 ; Nausea with vomiting, unspecified R11.2 and 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 [facility] [address] [id number] [address] [place] [address] Apr, Other chronic pain G89.29 [facility] [address] [id number] [address] [place] [address] Mar, Other chronic pain G89.29 [facility] [address] [id number] [address] [place] [address] Mar, Other chronic pain G89.29 [facility] [address] [id number] [address] [place] [address] Mar, [facility] [address] [id number] [address] [place] [address] Mar, Other organ or system involv ement in systemic lupus erythematosus M32.19 [facility] [address] [id number] [address] [place] [address] Mar, Non-recurrent acute suppurat gulshan otitis media of right ear without spontaneous rupture of tympanic membrane H66.001 and Chronic anticoagulation Z79.01 [facility] [address] [id number] [address] [place] [address] Feb, Sialoadenitis, unspecified K 11.20 [facility] [address] [facility] [id number] [address] [place] [address] Feb, Other chronic pain G89.29 [facility] [address] [facility] [id number] [address] [place] [address] Jan, nursing home current use of ant icoagulant therapy Z79.01 [place] [address] [address] [facility] [id number] [address] [place] [address] Jan, Other chronic pain G89.29 ; Lumbago with sciatica, right side M54.41 ; Other chronic pain G89.29 ; Tobacco abuse Z72.0 ; Tobacco abuse counseling Z71.6 ; Mixed hyperlipidemia E78.2 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 [facility] [address] [facility] [id number] [address] [place] [address] Jan, [place] [address] [address] [facility] [id number] [address] [place] [address] Dec, [facility] [address] [facility] [id number] [address] [place] [address] Dec, [place] [address] [address] [facility] [id number] [address] [place] [address] Dec, [place] [address] [address] [facility] [id number] [address] [place] [address] Dec, Mixed hyperlipidemia E78.2 ; Other chronic [...] in systemic lupus erythematosus M32.19 [facility] [employer] [address] [place] [id number] Dec, Right renal artery stenosis I70.1 ; Othe r organ or system involvement in systemic lupus erythematosus M32.19 ; Hepatitis C B19.20 ; Tobacco abuse Z72.0 and Weakness R53.1 [facility] [employer] [address] [place] [id number] Dec, [facility] [address] [id number] [address] [place] [address] Dec, [facility] [address] [id number] [address] [place] [address] Dec, Other organ or system involv ement in systemic lupus erythematosus M32.19 [facility] [employer] [address] [place] [id number] Dec, Right renal artery stenosis I70.1 ; Inju ry of right kidney, sequela S37.001S ; Tobacco abuse Z72.0 ; Systemic lupus erythematosus, unspecified SLE type, unspecified organ involvement status M32.9 ; Hepatitis C B19.20 and Candidiasis of female genitalia B37.3 [facility] [address] [id number] [address] [place] [address] Dec, Other organ or system involv ement in systemic lupus erythematosus M32.19 [facility] [address] [id number] [address] [place] [address] Dec, Other organ or system involv ement in systemic lupus erythematosus M32.19 [facility] [address] [id number] [address] [place] [address] Dec, [facility] [address] [id number] [address] [place] [address] Nov, Other organ or system involv ement in systemic lupus erythematosus M32.19 [facility] [address] [id number] [address] [place] [address] Oct, Other organ or system involv ement in systemic lupus erythematosus M32.19 [facility] [address] [id number] [address] [place] [address] Sep, Other organ or system involv ement in systemic lupus erythematosus M32.19 [facility] [address] [id number] [address] [place] [address] Aug, Anxiety F41.9 [facility] [address] [id number] [address] [place] [address] Aug, Other organ or system involv ement in systemic lupus erythematosus M32.19 [facility] [address] [id number] [address] [place] [address] July, Medicare annual wellness vis it, initial Z00.00 ; Anxiety F41.9 ; HILARIO (obstructive sleep apnea) G47.33 ; Hepatitis C B19.20 ; Other chronic pain G89.29 ; Asymptomatic menopausal state Z78.0 and Episode of recurrent major depressive disorder, unspecified depression episode severity F33.9 [facility] [address] [id number] [address] [place] [address] July, Anxiety F41.9 [facility] [address] [id number] [address] [place] [address] July, Other organ or system involv ement in systemic lupus erythematosus M32.19 [facility] [address] [id number] [address] [place] [address] July, [facility] [address] [id number] [address] [place] [address] Jun, Other organ or system involv ement in systemic lupus erythematosus M32.19 ; BMI 40.0-44.9, adult Z68.41 ; Other chronic pain G89.29 and Controlled substance agreement signed Z79.899 [facility] [address] [id number] [address] [place] [address] May, Sciatica M54.30 [facility] [address] [id number] [address] [place] [address] 03 Apr, 2017 Sciatica M54.30 [facility] [address] [id number] [address] [place] [address] Mar, Sciatica M54.30 [facility] [address] [id number] [address] [place] [address] 13 Feb, 2017 Sciatica M54.30 [facility] [address] [id number] [address] [place] [address] 15 Jan, 2017 Sciatica M54.30 [facility] [address] [id number] [address] [place] [address] 14 Jan, 2017 Sciatica M54.30 [facility] [address] [facility] [id number] [address] [place] [address] 19 Dec, 2016 Sciatica M54.30 [place] [address] [facility] [id number] [address] [place] [address] 18 Dec, 2016 Sciatica M54.30 [facility] [address] [facility] [id number] [address] [place] [address] 29 Nov, 2016 Mixed hyperlipidemia E78.2 ; Chronic seasonal allergic rhinitis due to other allergen J30.2 and Family history of early CAD Z82.49 [place] [address] [facility] [id number] [address] [place] [address] Nov, Sciatica M54.30 [facility] [address] [facility] [id number] [address] [place] [address] 18 Nov, 2016 Mixed hyperlipidemia E78.2 ; Chronic seasonal allergic rhinitis due to other allergen J30.2 ; Family history of early CAD Z82.49 ; Other chronic pain G89.29 and Pain in left shoulder M25.512 [facility] [address] [facility] [id number] [address] [place] [address] 11 Nov, 2016 Acute pain of left shoulder M25.512 [place] [address] [facility] [id number] [address] [place] [address] Oct, Sciatica M54.30 [facility] [address] [id number] [address] [place] [address] Oct, [facility] [address] [facility] [id number] [address] [place] [address] Sep, Sciatica M54.30 [facility] [address] [facility] [id number] [address] [place] [address] Sep, Acute pain of left shoulder M25.512 [facility] [address] [id number] [address] [place] [address] Sep, Acute pain of left shoulder M25.512 [facility] [address] [facility] [id number] [address] [place] [address] Aug, Sciatica M54.30 [facility] [address] [facility] [id number] [address] [place] [address] Aug, Sciatica M54.30 ; Tobacco ab use Z72.0 and Tobacco abuse counseling Z71.6 [facility] [address] [facility] [id number] [address] [place] [address] Aug, Acute pain of left shoulder M25.512 [facility] [address] [facility] [id number] [address] [place] [address] Aug, Contusion of right shoulder, initial encounter S40.011A ; Acute pain of left shoulder M25.512 and Shortness of breath R06.02 [facility] [address] [facility] [id number] [address] [place] [address] Aug, Lumbago with sciatica, right side M54.41 [facility] [address] [facility] [id number] [address] [place] [address] July, [facility] [address] [facility] [id number] [address] [place] [address] July, Lumbago with sciatica, right side M54.41 [facility] [address] [facility] [id number] [address] [place] [address] Jun, Lumbago with sciatica, right side M54.41 [facility] [address] [facility] [id number] [address] [place] [address] May, Lumbago with sciatica, right side M54.41 [facility] [address] [facility] [id number] [address] [place] [address] May, Herpes zoster without compli cation B02.9 [facility] [address] [facility] [id number] [address] [place] [address] May, Back pain M54.9 and Acute ri ght-sided low back pain with right-sided sciatica M54.41 [facility] [address] [facility] [id number] [address] [place] [address] Apr, [facility] [address] [place] [id number] [place] [address] Apr, Lumbago with sciatica, right side M54.41 and Other chronic pain G89.29 [facility] [address] [facility] [id number] [address] [place] [address] Apr, [facility] [address] [place] [id number] [address] [place] [address] Mar, [facility] [address] [place] [id number] [address] [place] [address] Mar, [facility] [address] [place] [id number] [address] [place] [address] Feb, [facility] [address] [facility] [id number] [address] [place] [id number] Jan, Urinary frequency R35.0 [facility] [address] [facility] [id number] [place] [id number] Jan, [facility] [address] [facility] [id number] [place] [id number] Dec, [facility] [address] [id number] [address] [place] [id number] Oct, [facility] [address] [id number] [place] [id number] Sep, [facility] [address] [id number] [place] [id number] Sep, Foreign body in left foot, i nitial encounter S90.852A [facility] [address] [id number] [address] [place] [id number] Aug, [facility] [facility] [address] [id number] [address] [place] [address] July, Sciatica M54.30 [facility] [address] [id number] [address] [place] [address] Jun, [facility] [address] [id number] [address] [place] [address] May, Osteoarthritis M19.90 [facility] [address] [id number] [address] [place] [address] May, [facility] [address] [id number] [address] [place] [address] May, Pain in right hip M25.551 [facility] [address] [id number] [address] [place] [address] May, Tinea corporis B35.4 [facility] [address] [id number] [address] [place] [address] Apr, Pain in right hip M25.551 [facility] [address] [id number] [address] [place] [address] Mar, Pain in right hip M25.551 [facility] [address] [id number] [address] [place] [address] Mar, [facility] [address] [id number] [address] [place] [address] Feb, Pain in right hip M25.551 [facility] [address] [id number] [address] [place] [address] Jan, Acute bronchitis, unspecifie d organism J20.9 and Cough R05 [facility] [address] [id number] [address] [place] [address] Jan, Pain in right hip M25.551 [facility] [address] [id number] [address] [place] [address] Dec, Pain in right hip M25.551 [facility] [address] [id number] [address] [place] [address] Nov, Acute bronchitis 466.0 [facility] [address] [id number] [address] [place] [address] Nov, [facility] [address] [id number] [address] [place] [address] Oct, [facility] [address] [id number] [address] [place] [address] Sep, [facility] [address] [id number] [address] [place] [address] Aug, [facility] [address] [id number] [address] [place] [address] July, [facility] [address] [id number] [address] [place] [address] 14 Jun, 2014 [facility] [address] [id number] [address] [place] [address] Jun, [facility] [address] [id number] [address] [place] [address] May, [facility] [address] [id number] [address] [place] [address] May, [facility] [address] [id number] [address] [place] [address] Apr, [facility] [address] [id number] [address] [place] [address], [place] [address] 17 Apr, 2014 [facility] [address] [id number] [address] [place] [address], [place] [address] Apr, 2014 [facility] [address] [id number] [address] [place] [address], [place] [address] Apr, 2014 [facility] [address] [id number] [address] [place] [address], [place] [address] Apr, 2014 [facility] [address] [id number] [address] [place] [address], [place] [address] Apr, [facility] [address] [id number] [address] [place] [address], [place] [address] Mar, [facility] [address] [id number] [address] [place] [address], [place] [address] Mar, [facility] [address] [id number] [address] [place] [address], [place] [address] 15 Feb, 2014 [facility] [address] [id number] [address] [place] [address], [place] [address] Feb, [facility] [address] [id number] [address] [place] [address], [place] [address] Feb, [facility] [address] [id number] [address] [place] [address], [place] [address] Dec, [facility] [address] [id number] [address] [place] [address] Dec, [facility] [address] [id number] [address] [place] [address], [place] [address] Nov, [facility] [address] [id number] [address] [place] [address], [place] [address] Nov, [facility] [address] [id number] [address] [place] [address], [place] [address] Nov, [facility] [address] [id number] [address] [place] [address], [place] [address] Nov, [facility] [address] [id number] [address] [place] [address], [place] [address] Sep, [facility] [address] [id number] [address] [place] [address], [place] [address] Sep, [facility] [address] [id number] [address] [place] [address], [place] [address] Sep, [facility] [address] [id number] [address] [place] [address], [place] [address] Sep, [facility] [address] [id number] [address] [place] [address], [place] [address] Aug, [facility] [address] [id number] [address] [place] [address], [place] [address] Aug, [facility] [address] [id number] [address] [place] [address], [place] [address] Aug, [facility] [address] [id number] [address] [place] [address], [place] [address] Aug, [facility] [address] [id number] [address] [place] [address], [place] [address] July, [facility] [address] [id number] [address] [place] [address], [place] [address] July, [facility] [address] [id number] [address] [place] [address], [place] [address] Jun, [facility] [address] [id number] [address] [place] [address], [place] [address] Jun, [facility] [address] [id number] [address] [place] [address], [place] [address] Jun, [facility] [address] [id number] [address] [place] [address], [place] [address] Jun, [facility] [address] [id number] [address] [place] [address], [place] [address] Jun, [facility] [address] [id number] [facility] [place] [address] Jun, [facility] [address] [id number] [facility] [place] [address] Jun, [facility] [address] [id number] [facility] [place] [address] Jun, [facility] [address] [id number] [address] [place] [address], [place] [address] May, [facility] [address] [id number] [address] [place] [address], [place] [address] May, [facility] [address] [id number] [address] [place] [address], [place] [address] May, [facility] [address] [id number] [address] [place] [address], [place] [address] May, [facility] [address] [id number] [address] [place] [address], [place] [address] May, [facility] [address] [id number] [address] [place] [address], [place] [address] May, [facility] [address] [id number] [address] [place] [address], [place] [address] Apr, [facility] [address] [id number] [address] [place] [address], [place] [address] Apr, [facility] [address] [id number] [address] [place] [address], [place] [address] Apr, [facility] [address] [id number] [address] [place] [address], [place] [address] Apr, [facility] [address] [id number] [address] [place] [address], [place] [address] Mar, [facility] [address] [id number] [address] [place] [address], [place] [address] Mar, [facility] [address] [id number] [address] [place] [address], [place] [address] Mar, [facility] [address] [id number] [address] [place] [address], [place] [address] Mar, [facility] [address] [id number] [address] [place] [address], [place] [address] Mar, [facility] [address] [id number] [address] [place] [address], [place] [address] Mar, [facility] [address] [id number] [address] [place] [address], [place] [address] Feb, [facility] [address] [id number] [address] [place] [address], [place] [address] Feb, [facility] [address] [id number] [address] [place] [address], [place] [address] Feb, [facility] [address] [id number] [address] [place] [address], [place] [address] Feb, [facility] [address] [id number] [address] [place] [address], [place] [address] Feb, [facility] [address] [id number] [address] [place] [address], [place] [address] Feb, [facility] [address] [id number] [address] [place] [address], [place] [address] Feb, [facility] [address] [id number] [address] [place] [address], [place] [address] Feb, [facility] [address] [id number] [address] [place] [address], [place] [address] Feb, [facility] [address] [id number] [address] [place] [address], [place] [address] Feb, [facility] [address] [id number] [address] [place] [address], [place] [address] Feb, [facility] [address] [id number] [address] [place] [address], [place] [address] Feb, [facility] [address] [id number] [address] [place] [address], [place] [address] Jan, [facility] [address] [id number] [address] [place] [address], [place] [address] Jan, [facility] [address] [id number] [address] [place] [address], [place] [address] Jan, [facility] [address] [id number] [address] [place] [address], [place] [address] Jan, [facility] [address] [id number] [address] [place] [address], [place] [address] Jan, [facility] [address] [id number] [address] [place] [address], [place] [address] Jan, [facility] [address] [id number] [address] [place] [address], [place] [address] Jan, [facility] [address] [id number] [address] [place] [address], [place] [address] Jan, [facility] [address] [id number] [address] [place] [address], [place] [address] Jan, [facility] [address] [id number] [address] [place] [address], [place] [address] Jan, [facility] [address] [id number] [address] [place] [address], [place] [address] Dec, [facility] [address] [id number] [address] [place] [address], [place] [address] Dec, [facility] [address] [id number] [address] [place] [address], [place] [address] Nov, [facility] [address] [id number] [address] [place] [address], [place] [address] Nov, [facility] [address] [id number] [address] [place] [address], [place] [address] Nov, [facility] [address] [id number] [address] [place] [address], [place] [address] Nov, [facility] [address] [id number] [address] [place] [address], [place] [address] Nov, [facility] [address] [id number] [address] [place] [address], [place] [address] Oct, [facility] [address] [id number] [address] [place] [address], [place] [address] Oct, [facility] [address] [id number] [address] [place] [address], [place] [address] Oct, [facility] [address] [id number] [address] [place] [address], [place] [address] Oct, [facility] [address] [id number] [address] [place] [address], [place] [address] Oct, [facility] [address] [id number] [address] [place] [address], [place] [address] Sep, [facility] [address] [id number] [address] [place] [address], [place] [address] Sep, [facility] [address] [id number] [address] [place] [address], [place] [address] Sep, [facility] [address] [id number] [address] [place] [address], [place] [address] Sep, [facility] [address] [id number] [address] [place] [address], [place] [address] Sep, [facility] [address] [id number] [address] [place] [address], [place] [address] Sep, [facility] [address] [id number] [address] [place] [address], [place] [address] Aug, [facility] [address] [id number] [address] [place] [address], [place] [address] Aug, [facility] [address] [id number] [address] [place] [address], [place] [address] July, [facility] [address] [id number] [address] [place] [address], [place] [address] July, [facility] [address] [id number] [address] [place] [address], [place] [address] July, [facility] [address] [id number] [address] [place] [address], [place] [address] Jun, [facility] [address] [id number] [address] [place] [address], [place] [address] Jun, [facility] [address] [id number] [address] [place] [address], [place] [address] Jun, [facility] [address] [id number] [address] [place] [address], [place] [address] Jun, [facility] [address] [id number] [address] [place] [address], [place] [address] May, [facility] [address] [id number] [address] [place] [address], [place] [address] May, [facility] [address] [id number] [address] [place] [address], [place] [address] Apr, [facility] [address] [id number] [address] [place] [address], [place] [address] Apr, [facility] [address] [id number] [address] [place] [address], [place] [address] Apr, [facility] [address] [id number] [address] [place] [address], [place] [address] Apr, [facility] [address] [id number] [address] [place] [address], [place] [address] Apr, [facility] [address] [id number] [address] [place] [address], [place] [address] Apr, [facility] [address] [id number] [address] [place] [address], [place] [id number] Apr, [facility] [address] [id number] [address] [place] [address], [place] [address] Apr, [facility] [address] [id number] [address] [place] [address], [place] [address] Mar, [facility] [address] [id number] [address] [place] [address], [place] [address] Mar, [facility] [address] [id number] [address] [place] [address], [place] [address] Mar, [facility] [address] [id number] [address] [place] [address], [place] [address] Mar, [facility] [address] [id number] [address] [place] [address], [place] [address] Jan, [facility] [address] [id number] [address] [place] [address], [place] [address] Jan, [facility] [address] [id number] [address] [place] [address], [place] [address] Jan, [facility] [address] [id number] [address] [place] [address], [place] [address] Jan, [facility] [address] [id number] [address] [place] [address], [place] [address] Jan, [facility] [address] [id number] [address] [place] [address], [place] [address] Dec, [facility] [address] [id number] [address] [place] [address], [place] [address] Dec, [facility] [address] [id number] [address] [place] [address], [place] [address] Dec, [facility] [address] [id number] [address] [place] [address], [place] [address] Dec, [facility] [address] [id number] [address] [place] [address], [place] [address] Nov, [facility] [address] [id number] [address] [place] [address], [place] [address] Oct, [facility] [address] [id number] [address] [place] [address], [place] [address] Oct, [facility] [address] [id number] [address] [place] [address], [place] [address] Oct, [facility] [address] [id number] [address] [place] [address], [place] [address] Oct, [facility] [address] [id number] [address] [place] [address], [place] [address] Oct, [facility] [address] [id number] [address] [place] [address], [place] [address] Sep, [facility] [address] [id number] [address] [place] [address], [place] [address] Sep, [facility] [address] [id number] [address] [place] [address], [place] [address] Aug, [facility] [address] [id number] [address] [place] [address], [place] [address] Aug, [facility] [address] [id number] [address] [place] [address], [place] [address] Aug, [facility] [address] [id number] [address] [place] [address], [place] [address] Aug, [facility] [address] [id number] [address] [place] [address], [place] [address] July, [facility] [address] [id number] [address] [place] [address], [place] [address] Jun, [facility] [address] [id number] [address] [place] [address], [place] [address] May, [facility] [address] [id number] [address] [place] [address], [place] [address] May, [facility] [address] [id number] [address] [place] [address], [place] [address] May, [facility] [address] [id number] [address] [place] [address], [place] [address] Mar, [facility] [address] [id number] [address] [place] [address] Feb, [facility] [address] [id number] [address] [place] [phone] Feb, [facility] [address] [id number] [address] [place] [phone] Jan, [facility] [address] [id number] [address] [place] [phone] Jan, [facility] [address] [id number] [address] [place] [phone] Jan, [facility] [address] [id number] [address] [place] [phone] Jan, [facility] [address] [id number] [address] [place] [phone] Jan, [facility] [address] [id number] [address] [place] [id number] Dec, [facility] [address] [id number] [address] [place] [phone] Dec, [facility] [address] [id number] [address] [place] [phone] Dec, [facility] [address] [id number] [address] [place] [phone] May, [facility] [address] [id number] [address] [place] [id number] 15 May, 2009 [facility] [address] [id number] [address] [place] [id number] 17 Apr, 2009 [facility] [address] [id number] [address] [place] [phone] Jan, [facility] [address] [id number] [address] [place] [phone] 11 Apr, 2008 IMMUNIZATIONS No Known Immunizations [...] for cancer Hospitalization History surgeries Hospitalization History [facility] ER, heart- kidney- Stayed a [facility] ICU 12/2017 Hospitalization History [facility] ER 03/2018 Hospitalization History [facility]- Stroke 2 weeks 06/2018 Hospitalization History ER 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
--- OUTSIDE RECORDS SUMMARY | 2019-10-19 08:27 | XMS REPORT ---
Author Author Luanne Carvalho Doctor Organization [facility] Address Unknown Phone Unavailable Care Team Providers Care Transfer Clerk Name Role Phone Migration, Doctor Unavailable Unavailable PROBLEMS Type Condition ICD9-CM Code [id number] Code Onset Dates Condition S tatus SNOMED Code Problem Mixed hyperlipidemia E78.2 Active 668818697 Problem Anxiety F41.9 Active 49027049 Problem Other organ or system involvement in systemic julito pus erythematosus M32.19 Active 37522538 Problem Episode of recurrent major d epressive disorder, unspecified depression episode severity F33.9 Active 107883190 Problem Asymptomatic menopausal state Z78.0 Active 40860144 Problem Systemic lupus erythematosus , unspecified SLE type, unspecified organ involvement status M32.9 Active 75279256 Problem Right renal artery stenosis I70.1 Ac tive [id number] Problem Type 2 diabetes mellitus with foot ulcer E11.621 Active 132512871424441 Problem Lumbago with sciatica, right side M54.41 Active 047318412 Problem Non-pressure chronic ulcer o f other part of unspecified foot limited to breakdown of skin L97.501 Active 908549700 Problem Other chronic pain G89.29 Active 8 3696117 Problem Other chronic pain G89.29 Active 8 6713777 Problem Acute right-sided low back pain with right-sided sciatica M54.41 Active 488176128 Problem intermission coordinator current use of anticoagulant Z79.01 Active 857299244 Problem 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 22634523 Problem Frequent falls R29.6 Active 14991 2001 Problem HILARIO (obstructive sleep apnea) G47.33 Active 57851672 Problem Cerebrovascular accident (CV A) due to occlusion of other cerebral artery I63.59 Active 123137585 Problem Sciatica M54.30 Active 05470804 Problem Gangrene I96 Active 456917743 Problem Hepatitis C B19.20 Active 55712751 Problem Unsteady gait R26.81 Active 456413 008 Problem Seborrheic keratoses L82.1 Active 569939890 Problem Non-pressure chronic ulcer o f other part of unspecified foot limited to breakdown of skin L97.501 Active 754057483 Problem Urinary frequency R35.0 Active 16 4274195 Problem Necrosis I96 Active 861730190 Problem 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 Active 950967465 Problem Type 2 diabetes mellitus with foot ulcer E11.621 Active 155269845418387 Problem Arterial insufficiency of lower extremity I73.9 Active 022230745609972 Problem Ventricular tachycardia I47.2 Active 22805733 Problem Atherosclerosis of renal artery I70.1 Active 142427480761105 Problem 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 .01 Active 362922389 Problem 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 Active 989419660 Problem Chronic anticoagulation Z79.01 Active 488426272 Problem Sialoadenitis, unspecified K11.20 Act gulshan 82559815 Problem Current moderate episode of major depressive disorder without prior episode F32.1 Active 57675710 Problem Body mass index (BMI) 29.0-29.9, adult Z68.29 Active 459946890 Problem Systolic congestive heart failure, unspecified HF chronici ty I50.20 Active 98965952 Problem Hypertension I10 Active 9436494 3 Problem Cardiomyopathy of undetermined type I42.9 Active 99539705 ALLERGIES No Information ENCOUNTERS Encounter Location Date Diagnosis [place] [address] [address] [facility]] [id number] [address] [place] [address] 10 Aug, 2019 [place] [address] [address] [facility]] [id number] [address] [place] [address] 30 Jun, 2019 Other chronic pain G89.29 [place] [address] [address] [facility]] [id number] [address] [place] [phone] 14 Jun, 2019 Frequent headaches R51 [place] [address] [address] [facility]] [id number] [address] [place] [address] 03 Jun, 2019 Systolic congestive heart fa ilure, unspecified HF chronicity I50.20 ; Type 2 diabetes mellitus with foot ulcer E11.621 and Coronary artery disease of [place] artery of [place] heart with stable angina pectoris I25.118 [place] [address] [address] [place] [id number] [address] [place] [address] Jun, Other chronic pain G89.29 [facility] [address] [address] 16 May, 2019 [facility] [address] [place] [id number] [address] [place] [address] May, Other chronic pain G89.29 [facility] [address] [address] 20 Apr, 2019 Atherosclerosis of renal art taurus I70.1 ; Cardiomyopathy of undetermined type I42.9 and Ventricular tachycardia I47.2 [place] [address] [address] 14 Apr, 2019 [facility] [address] [address] Apr, Non-intractable vomiting wit h nausea, unspecified vomiting type R11.2 [facility] [address] [address] 03 Apr, 2019 Other chronic pain G89.29 [facility] [address] [address] Mar, Other chronic pain G89.29 [facility] [address] [address] Feb, Renal insufficiency N28.9 [facility] [address] [address] Feb, [facility] [address] [place] [id number] [place] [address] Feb, Frequent headaches R51 and H ypertension I10 [facility] [address] [place] [id number] [address] [place] [address] Feb, Other chronic pain G89.29 [facility] [address] [address] 27 Jan, 2019 Encounter for Medicare rigoberto [...] episode F32.1 and Encounter for immunization Z23 [facility] [address] [id number] [address] [place] [phone] 22 Jan, 2019 [place] [address] [address] [facility] [id number] [address] [place] [address] 13 Jan, 2019 Other chronic pain G89.29 [place] [address] [address] [facility] [id number] [address] [place] [address] 28 Dec, 2018 [place] [address] [address] [facility]] [id number] [address] [place] [address] 15 Dec, 2018 Hypokalemia E87.6 [place] [address] [address] [facility]] [id number] [address] [place] [address] 15 Dec, 2018 Nausea R11.0 [place] [address] [address] [facility]] [id number] [address] [place] [address] 14 Dec, 2018 Other chronic pain G89.29 [facility] [address] [facility]] [id number] [address] [place] [address] 10 Dec, 2018 Systolic congestive heart fa ilure, unspecified HF chronicity I50.20 and Ventricular tachycardia I47.2 [place] [address] [id number] [address] [place] [phone] 08 Dec, 2018 [place] [address] [address] [facility]] [id number] [address] [place] [address] 17 Nov, 2018 Other chronic pain G89.29 [place] [address] [address] [facility]] [id number] [address] [place] [address] Nov, Nausea with vomiting, unspec ified R11.2 [facility] [id number] [place] [address] Oct, [facility] [address] [address] Oct, Other chronic pain G89.29 [place] [address] [address] Oct, [place] [address] [address] Oct, Arterial insufficiency of lo wer extremity I73.9 and High risk medication use Z79.899 [facility] [address] [address] Oct, Type 2 diabetes mellitus wit h foot ulcer E11.621 and Non-pressure chronic ulcer of other part of unspecified foot limited to breakdown of skin L97.501 [facility] [address] [address] Oct, Gangrene I96 [place] [address] [address] Sep, Other chronic pain G89.29 [place] [address] [address] Sep, Status post CVA Z86.73 ; Uns teady gait R26.81 and Frequent falls R29.6 [place] [address] [place] [id number] [address] [place] [address] Sep, Nausea with vomiting, unspec ified R11.2 [place] [address] [address] Sep, Other chronic pain G89.29 [place] [address] [address] Aug, [place] [address] [address] Aug, Other chronic pain G89.29 [place] [id number] [id number] [address] [place] [address] July, intermission coordinator current use of ant icoagulant Z79.01 and Cerebrovascular accident (CVA) due to occlusion of other cerebral artery I63.59 [place] [address] [id number] [address] [place] [address] July, Renal insufficiency N28.9 [place] [address] [id number] [address] [place] [address] July, Cerebrovascular accident (CV A) due to occlusion of other cerebral artery I63.59 and Unexplained weight loss R63.4 [place] [address] [id number] [address] [place] [phone] July, [place] [address] [address] [facility]] [id number] [address] [place] [address] July, [place] [address] [address] [facility]] [id number] [address] [place] [address] July, Unexplained weight loss R63. 4 and intermission coordinator current use of anticoagulant Z79.01 [place] [address] [address] [facility]] [id number] [address] [place] [address] July, Other chronic pain G89.29 [place] [address] [address] [facility]] [id number] [address] [place] [address] Jun, Other chronic pain G89.29 [place] [address] [id number] [address] [place] [address] May, Unexplained weight loss R63. 4 [place] [address] [address] [facility]] [id number] [address] [place] [address] May, Nausea with vomiting, unspec ified R11.2 [place] [address] [address] [facility]] [id number] [address] [place] [address] May, Non-recurrent acute suppurat gulshna otitis media of right ear without spontaneous rupture of tympanic membrane H66.001 and Chronic anticoagulation Z79.01 [facility] [address] [id number] [address] [place] [address] May, Other chronic pain G89.29 [facility] [address] [id number] [address] [place] [address] 28 Apr, 2018 Skin tear of right forearm w ithout complication, initial encounter S51.811A ; Skin tear of left forearm without complication, initial encounter S51.812A and Encounter for immunization Z23 [facility] [address] [id number] [address] [place] [address] Apr, [facility] [address] [facility]] [id number] [address] [place] [address] Apr, Diarrhea, unspecified R19.7 ; Nausea with vomiting, unspecified R11.2 and 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 [facility] [address] [facility]] [id number] [address] [place] [phone] 05 Apr, 2018 Other chronic pain G89.29 [facility] [address] [facility]] [id number] [address] [place] [address] Mar, Other chronic pain G89.29 [place] [id number] [id number] [address] [place] [address] Mar, Other chronic pain G89.29 [facility] [address] [id number] [address] [place] [address] Mar, [facility] [address] [facility]] [id number] [address] [place] [address] Mar, Other organ or system involv ement in systemic lupus erythematosus M32.19 [facility] [address] [facility]] [id number] [address] [place] [address] 02 Mar, 2018 Non-recurrent acute suppurat gulshan otitis media of right ear without spontaneous rupture of tympanic membrane H66.001 and Chronic anticoagulation Z79.01 [facility] [address] [id number] [address] [place] [address] Feb, Sialoadenitis, unspecified K 11.20 [facility] [address] [facility]] [id number] [address] [place] [address] 07 Feb, 2018 Other chronic pain G89.29 [facility] [address] [facility]] [id number] [address] [place] [address] Jan, assisted current use of ant icoagulant therapy Z79.01 [place] [address] [address] [facility]] [id number] [address] [place] [address] Jan, Other chronic pain G89.29 ; Lumbago with sciatica, right side M54.41 ; Other chronic pain G89.29 ; Tobacco abuse Z72.0 ; Tobacco abuse counseling Z71.6 ; Mixed hyperlipidemia E78.2 and 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.01 [place] [address] [address] [facility]] [id number] [address] [place] [phone] Jan, [facility] [address] [facility]] [id number] [address] [place] [phone] Dec, [place] [address] [facility]] [id number] [address] [place] [address] Dec, [facility] [address] [facility]] [id number] [address] [place] [address] Dec, [place] [address] [facility] [id number] [address] [place] [address] Dec, Mixed hyperlipidemia E78.2 ; Other chronic [...] involvement in systemic lupus erythematosus M32.19 [facility] [address] [place] [id number] Dec, Right renal artery stenosis I70.1 ; Othe r organ or system involvement in systemic lupus erythematosus M32.19 ; Hepatitis C B19.20 ; Tobacco abuse Z72.0 and Weakness R53.1 [facility] [address] [place] [id number] Dec, [facility] [address] [id number] [address] [place] [address] Dec, [facility] [address] [id number] [address] [place] [address] Dec, Other organ or system involv ement in systemic lupus erythematosus M32.19 [facility] [address] [place] [id number] Dec, Right renal artery stenosis I70.1 ; Inju ry of right kidney, sequela S37.001S ; Tobacco abuse Z72.0 ; Systemic lupus erythematosus, unspecified SLE type, unspecified organ involvement status M32.9 ; Hepatitis C B19.20 and Candidiasis of female genitalia B37.3 [facility] [address] [id number] [address] [place] [address] Dec, Other organ or system involv ement in systemic lupus erythematosus M32.19 [facility] [address] [id number] [address] [place] [address] Dec, Other organ or system involv ement in systemic lupus erythematosus M32.19 [facility] [address] [id number] [address] [place] [address] Dec, [facility] [address] [id number] [address] [place] [address] Nov, Other organ or system involv ement in systemic lupus erythematosus M32.19 [facility] [address] [id number] [address] [place] [address] Oct, Other organ or system involv ement in systemic lupus erythematosus M32.19 [facility] [address] [facility] [id number] [address] [place] [address] Sep, Other organ or system involv ement in systemic lupus erythematosus M32.19 [facility] [address] [facility] [id number] [address] [place] [address] Aug, Anxiety F41.9 [facility] [address] [facility] [id number] [address] [place] [phone] Aug, Other organ or system involv ement in systemic lupus erythematosus M32.19 [facility] [address] [facility] [id number] [address] [place] [address] July, Medicare annual wellness vis it, initial Z00.00 ; Anxiety F41.9 ; HILARIO (obstructive sleep apnea) G47.33 ; Hepatitis C B19.20 ; Other chronic pain G89.29 ; Asymptomatic menopausal state Z78.0 and Episode of recurrent major depressive disorder, unspecified depression episode severity F33.9 [facility] [address] [facility] [id number] [address] [place] [address] July, Anxiety F41.9 [facility] [address] [facility] [id number] [address] [place] [address] July, Other organ or system involv ement in systemic lupus erythematosus M32.19 [facility] [address] [facility] [id number] [address] [place] [address] July, [facility] [address] [facility] [id number] [address] [place] [address] Jun, Other organ or system involv ement in systemic lupus erythematosus M32.19 ; BMI 40.0-44.9, adult Z68.41 ; Other chronic pain G89.29 and Controlled substance agreement signed Z79.899 [facility] [address] [facility] [id number] [address] [place] [address] May, Sciatica M54.30 [facility] [address] [facility] [id number] [address] [place] [address] Apr, Sciatica M54.30 [facility] [address] [id number] [address] [place] [address] Mar, Sciatica M54.30 [facility] [address] [id number] [address] [place] [address] Feb, Sciatica M54.30 [facility] [address] [id number] [address] [place] [phone] Jan, Sciatica M54.30 [facility] [address] [id number] [address] [place] [phone] 14 Jan, 2017 Sciatica M54.30 [facility] [address] [id number] [address] [place] [phone] 19 Dec, 2016 Sciatica M54.30 [place] [address] [address] [facility] [id number] [address] [place] [address] 18 Dec, 2016 Sciatica M54.30 [place] [id number] [facility] [id number] [address] [place] [address] 29 Nov, 2016 Mixed hyperlipidemia E78.2 ; Chronic seasonal allergic rhinitis due to other allergen J30.2 and Family history of early CAD Z82.49 [place] [address] [facility] [id number] [address] [place] [address] 21 Nov, 2016 Sciatica M54.30 [place] [id number] [id number] [address] [place] [phone] 18 Nov, 2016 Mixed hyperlipidemia E78.2 ; Chronic seasonal allergic rhinitis due to other allergen J30.2 ; Family history of early CAD Z82.49 ; Other chronic pain G89.29 and Pain in left shoulder M25.512 [facility] [address] [id number] [address] [place] [address] 11 Nov, 2016 Acute pain of left shoulder M25.512 [facility] [address] [id number] [address] [place] [phone] Oct, Sciatica M54.30 [facility] [address] [place] [id number] [address] [place] [address] Oct, [facility] [address] [place] [address] Sep, Sciatica M54.30 [facility] [address] [facility] [id number] [address] [place] [address] Sep, Acute pain of left shoulder M25.512 [facility] [address] [place] [address] Sep, Acute pain of left shoulder M25.512 [facility] [address] [place] [id number] [address] [place] [address] Aug, Sciatica M54.30 [facility] [address] [place] [id number] [place] [address] Aug, Sciatica M54.30 ; Tobacco ab use Z72.0 and Tobacco abuse counseling Z71.6 [facility] [address] [place] [address] Aug, Acute pain of left shoulder M25.512 [facility] [address] [phone] Aug, Contusion of right shoulder, initial encounter S40.011A ; Acute pain of left shoulder M25.512 and Shortness of breath R06.02 [facility] [id number] [place] [phone] Aug, Lumbago with sciatica, right side M54.41 [place] [id number] [place] [phone] July, [facility] [id number] [place] [phone] July, Lumbago with sciatica, right side M54.41 [facility] [id number] [place] [phone] Jun, Lumbago with sciatica, right side M54.41 [facility] [address] [id number] [address] [place] [phone] May, Lumbago with sciatica, right side M54.41 [facility] [address] [facility][NOTE 3] [id number] [address] [place] [phone] May, Herpes zoster without compli cation B02.9 [facility] [address] [facility]NOTE 3] [id number] [address] [place] [phone] May, Back pain M54.9 and Acute ri ght-sided low back pain with right-sided sciatica M54.41 [facility] [id number] [place] [phone] Apr, [facility] [id number] [place] [phone] Apr, Lumbago with sciatica, right side M54.41 and Other chronic pain G89.29 [facility] [id number] [place] [phone] Apr, [facility] [id number] [place] [phone] Mar, [facility] [id number] [place] [phone] Mar, [facility] [id number] [place] [phone] Feb, [facility] [address] [facility]NOTE 3] [id number] [address] [place] [address] Jan, Urinary frequency R35.0 [facility] [address] [id number] [address] [place] [phone] Jan, [facility] [address] [facility]NOTE 3] [id number] [address] [place] [address] Dec, [facility] [address] [id number] [address] [place] [address] Oct, [facility] [address] [id number] [address] [place] [address] Sep, [facility] [address] [id number] [address] [place] [address] Sep, Foreign body in left foot, i nitial encounter S90.852A [facility] [address] [id number] [address] [place] [address] Aug, [facility] [address] [id number] [address] [place] [address] July, Sciatica M54.30 [facility] [address] [id number] [address] [place] [address] Jun, [facility] [address] [id number] [address] [place] [address] May, Osteoarthritis M19.90 [facility] [address] [id number] [address] [place] [address] May, [facility] [address] [id number] [address] [place] [address] May, Pain in right hip M25.551 [facility] [address] [id number] [address] [place] [address] May, Tinea corporis B35.4 [facility] [address] [id number] [address] [place] [address] Apr, Pain in right hip M25.551 [facility] [address] [id number] [address] [place] [address] Mar, Pain in right hip M25.551 [facility] [address] [id number] [address] [place] [address] Mar, [facility] [address] [id number] [address] [place] [address] Feb, Pain in right hip M25.551 [facility] [address] [id number] [address] [place] [address] Jan, Acute bronchitis, unspecifie d organism J20.9 and Cough R05 [facility] [address] [id number] [address] [place] [address] Jan, Pain in right hip M25.551 [facility] [address] [id number] [address] [place] [address] Dec, Pain in right hip M25.551 [facility] [address] [id number] [address] [place] [address] Nov, Acute bronchitis 466.0 [facility] [address] [id number] [address] [place] [address] Nov, [facility] [address] [id number] [address] [place] [address] Oct, [facility] [address] [id number] [address] [place] [address] Sep, [facility] [address] [id number] [address] [place] [address] Aug, [facility] [address] [id number] [address] [place] [phone] July, [facility] [address] [id number] [address] [place] [address] Jun, [facility] [address] [id number] [address] [place] [phone] Jun, [facility] [address] [id number] [address] [place] [address] May, [facility] [address] [id number] [address] [place] [address] May, [facility] [address] [id number] [address] [place] [id number] Apr, [facility] [address] [id number] [address] [place] [id number] 17 Apr, 2014 [facility] [address] [id number] [address] [place] [address], [place] [address] Apr, 2014 [facility] [address] [id number] [address] [place] [address], [place] [address] Apr, 2014 [facility] [address] [id number] [address] [place] [address], [place] [address] 06 Apr, 2014 [facility] [address] [id number] [address] [place] [address], [place] [address] Apr, 2014 [facility] [address] [id number] [address] [place] [address], [place] [address] Mar, [facility] [address] [id number] [address] [place] [address], [place] [address] Mar, [facility] [address] [id number] [address] [place] [address] Feb, [facility] [address] [id number] [address] [place] [address] Feb, [facility] [address] [id number] [address] [place] [address], [place] [address] Feb, [facility] [address] [id number] [address] [place] [address], [place] [address] Dec, [facility] [address] [id number] [address] [place] [address], [place] [address] Dec, [facility] [address] [id number] [address] [place] [address] Nov, [facility] [address] [id number] [address] [place] [address], [place] [address] Nov, [facility] [address] [id number] [address] [place] [address], [place] [address] Nov, [facility] [address] [id number] [address] [place] [address], [place] [address] Nov, 2013 [facility] [address] [id number] [facility] [place] [address] Sep, [facility] [address] [id number] [address] [place] [address], [place] [address] Sep, [facility] [address] [id number] [address] [place] [address], [place] [address] Sep, [facility] [address] [id number] [address] [place] [address], [place] [address] Sep, [facility] [address] [id number] [address] [place] [address], [place] [address] Aug, [facility] [address] [id number] [address] [place] [address], [place] [address] Aug, [facility] [address] [id number] [address] [place] [address], [place] [address] Aug, [facility] [address] [id number] [address] [place] [address], [place] [address] Aug, [facility] [address] [id number] [address] [place] [address], [place] [address] July, [facility] [address] [id number] [address] [place] [address], [place] [address] July, [facility] [address] [id number] [address] [place] [address], [place] [address] Jun, [facility] [address] [id number] [address] [place] [address], [place] [address] Jun, [facility] [address] [id number] [address] [place] [address], [place] [address] Jun, [facility] [address] [id number] [address] [place] [address], [place] [address] Jun, [facility] [address] [id number] [address] [place] [address], [place] [address] Jun, [facility] [address] [id number] [address] [place] [address], [place] [address] Jun, [facility] [address] [id number] [facility] [place] [address] Jun, [facility] [address] [id number] [address] [place] [address], [place] [address] Jun, [facility] [address] [id number] [facility] [place] [address] May, [facility] [address] [id number] [address] [place] [address], [place] [address] May, [facility] [address] [id number] [address] [place] [address], [place] [address] May, [facility] [address] [id number] [address] [place] [address], [place] [address] May, [facility] [address] [id number] [address] [place] [address], [place] [address] May, [facility] [address] [id number] [address] [place] [address], [place] [address] May, [facility] [address] [id number] [address] [place] [address], [place] [address] Apr, [facility] [address] [id number] [address] [place] [address], [place] [address] Apr, [facility] [address] [id number] [address] [place] [address], [place] [address] Apr, [facility] [address] [id number] [address] [place] [address], [place] [address] Apr, [facility] [address] [id number] [address] [place] [address], [place] [address] Mar, [facility] [address] [id number] [address] [place] [address], [place] [address] Mar, [facility] [address] [id number] [address] [place] [address], [place] [address] Mar, [facility] [address] [id number] [address] [place] [address], [place] [address] Mar, [facility] [address] [id number] [address] [place] [address], [place] [address] Mar, [facility] [address] [id number] [address] [place] [address], [place] [address] Mar, [facility] [address] [id number] [address] [place] [address], [place] [address] Feb, [facility] [address] [id number] [address] [place] [address], [place] [address] Feb, [facility] [address] [id number] [address] [place] [address], [place] [address] Feb, [facility] [address] [id number] [address] [place] [address], [place] [address] Feb, [facility] [address] [id number] [address] [place] [address], [place] [address] Feb, [facility] [address] [id number] [address] [place] [address], [place] [address] Feb, [facility] [address] [id number] [address] [place] [address], [place] [address] Feb, [facility] [address] [id number] [address] [place] [address], [place] [address] Feb, [facility] [address] [id number] [address] [place] [address], [place] [address] Feb, [facility] [address] [id number] [address] [place] [address], [place] [address] Feb, [facility] [address] [id number] [address] [place] [address], [place] [address] Feb, [facility] [address] [id number] [address] [place] [address], [place] [address] Feb, [facility] [address] [id number] [address] [place] [address], [place] [address] Jan, [facility] [address] [id number] [address] [place] [address], [place] [address] Jan, [facility] [address] [id number] [address] [place] [address], [place] [address] Jan, [facility] [address] [id number] [address] [place] [address], [place] [address] Jan, [facility] [address] [id number] [address] [place] [address], [place] [address] Jan, [facility] [address] [id number] [address] [place] [address], [place] [address] Jan, [facility] [address] [id number] [address] [place] [address], [place] [address] Jan, [facility] [address] [id number] [address] [place] [address], [place] [address] Jan, [facility] [address] [id number] [address] [place] [address], [place] [address] Jan, [facility] [address] [id number] [address] [place] [address], [place] [address] Jan, [facility] [address] [id number] [address] [place] [address], [place] [address] Dec, [facility] [address] [id number] [address] [place] [address], [place] [address] Dec, [facility] [address] [id number] [address] [place] [address], [place] [address] Nov, [facility] [address] [id number] [address] [place] [address], [place] [address] Nov, [facility] [address] [id number] [address] [place] [address], [place] [address] Nov, [facility] [address] [id number] [address] [place] [address], [place] [address] 05 Nov, 2012 [facility] [address] [id number] [address] [place] [address] [place] [address] Nov, [facility] [address] [id number] [address] [place] [address], [place] [address] Oct, [facility] [address] [id number] [address] [place] [address], [place] [address] Oct, [facility] [address] [id number] [address] [place] [address], [place] [address] Oct, [facility] [address] [id number] [address] [place] [address], [place] [address] Oct, [facility] [address] [id number] [address] [place] [address], [place] [address] Oct, [facility] [address] [id number] [address] [place] [address], [place] [address] Sep, [facility] [address] [id number] [address] [place] [address], [place] [address] Sep, [facility] [address] [id number] [address] [place] [address], [place] [address] Sep, [facility] [address] [id number] [address] [place] [address], [place] [address] Sep, [facility] [address] [id number] [address] [place] [address], [place] [address] Sep, [facility] [address] [id number] [address] [place] [address], [place] [address] Sep, [facility] [address] [id number] [address] [place] [address], [place] [address] Aug, [facility] [address] [id number] [address] [place] [address], [place] [address] Aug, [facility] [address] [id number] [address] [place] [address], [place] [address] July, [facility] [address] [id number] [address] [place] [address], [place] [address] July, [facility] [address] [id number] [address] [place] [address], [place] [address] July, [facility] [address] [id number] [address] [place] [address], [place] [address] Jun, [facility] [address] [id number] [address] [place] [address], [place] [address] Jun, [facility] [address] [id number] [address] [place] [address], [place] [address] Jun, [facility] [address] [id number] [address] [place] [address], [place] [address] Jun, [facility] [address] [id number] [address] [place] [address], [place] [address] May, [facility] [address] [id number] [address] [place] [address], [place] [address] May, [facility] [address] [id number] [address] [place] [address], [place] [address] Apr, [facility] [address] [id number] [address] [place] [address], [place] [address] Apr, [facility] [address] [id number] [address] [place] [address] Apr, [facility] [address] [id number] [address] [place] [address] Apr, [facility] [address] [id number] [address] [place] [address] Apr, [facility] [address] [id number] [address] [place] [address] Apr, [facility] [address] [id number] [address] [place] [id number] Apr, [facility] [address] [id number] [address] [place] [address] Apr, [facility] [address] [id number] [address] [place] [address] Mar, [facility] [address] [id number] [address] [place] [address], [place] [address] Mar, [facility] [address] [id number] [address] [place] [address], [place] [address] Mar, [facility] [address] [id number] [address] [place] [address], [place] [address] Mar, [facility] [address] [id number] [address] [place] [address], [place] [address] Jan, [facility] [address] [id number] [address] [place] [address], [place] [address] Jan, [facility] [address] [id number] [address] [place] [address], [place] [address] Jan, [facility] [address] [id number] [address] [place] [address], [place] [address] Jan, [facility] [address] [id number] [address] [place] [address], [place] [address] Jan, [facility] [address] [id number] [address] [place] [address], [place] [address] Dec, [facility] [address] [id number] [address] [place] [address], [place] [address] Dec, [facility] [address] [id number] [address] [place] [address], [place] [address] Dec, [facility] [address] [id number] [address] [place] [address], [place] [address] Dec, [facility] [address] [id number] [address] [place] [address], [place] [address] Nov, [facility] [address] [id number] [address] [place] [address], [place] [address] Oct, [facility] [address] [id number] [address] [place] [address], [place] [address] Oct, [facility] [address] [id number] [facility] [place] [address] Oct, [facility] [address] [id number] [address] [place] [address], [place] [address] Oct, [facility] [address] [id number] [address] [place] [address], [place] [address] Oct, [facility] [address] [id number] [address] [place] [address], [place] [address] Sep, [facility] [address] [id number] [address] [place] [address], [place] [address] Sep, [facility] [address] [id number] [address] [place] [address], [place] [address] Aug, [facility] [address] [id number] [address] [place] [address], [place] [address] Aug, [facility] [address] [id number] [address] [place] [address], [place] [address] Aug, [facility] [address] [id number] [address] [place] [address], [place] [address] Aug, [facility] [address] [id number] [address] [place] [address], [place] [address] July, [facility] [address] [id number] [address] [place] [address], [place] [address] Jun, [facility] [address] [id number] [address] [place] [address], [place] [address] May, [facility] [address] [id number] [address] [place] [address], [place] [address] May, [facility] [address] [id number] [address] [place] [address], [place] [address] May, [facility] [address] [id number] [address] [place] [address], [place] [address] Mar, [facility] [address] [id number] [address] [place] [address] [address] Feb, [facility] [address] [id number] [address] [place] [address] Feb, [facility] [address] [id number] [address] [place] [address] Jan, [facility] [address] [id number] [address] [place] [address] Jan, [facility] [address] [id number] [address] [place] [address] Jan, [facility] [address] [id number] [address] [place] [address] Jan, [facility] [address] [id number] [address] [place] [address] Jan, [facility] [address] [id number] [address] [place] [id number] Dec, [facility] [address] [id number] [address] [place] [address] Dec, [facility] [address] [id number] [address] [place] [address] Dec, [facility] [address] [id number] [address] [place] [address] May, [facility] [address] [id number] [address] [place] [id number] May, [facility] [address] [id number] [address] [place] [address] Apr, [facility] [address] [id number] [address] [place] [id number] Jan, [facility] [address] [id number] [address] [place] [address] Apr, IMMUNIZATIONS No Known Immunizations SOCIAL HISTORY [...] [facility]2017 [facility]2018 Hospitalization History [facility]- Stroke 2 weeks 06/2018 Hospitalization History [facility] 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
--- OUTSIDE RECORDS SUMMARY | 2019-10-19 08:28 | XMS REPORT ---
Author Author Luanne GLORIA Organization [facility] Address [address] [place] [address] Care Team Providers Care Speaker Wirer Name Role Phone CHRISTA GLORIA Unavailable PROBLEMS Type Condition ICD9-CM Code BBL71-SL Code Onset Dates Condition S tatus SNOMED Code Problem Mixed hyperlipidemia E78.2 Active 470039005 Problem Anxiety F41.9 Active 09290048 Problem Other organ or system involvement in systemic julito pus erythematosus M32.19 Active 07949807 Problem Episode of recurrent major d epressive disorder, unspecified depression episode severity F33.9 Active 546533130 Problem Asymptomatic menopausal state Z78.0 Active 17467597 Problem Systemic lupus erythematosus , unspecified SLE type, unspecified organ involvement status M32.9 Active 99366740 Problem Right renal artery stenosis I70.1 Ac tive [id number] Problem Type 2 diabetes mellitus with foot ulcer E11.621 Active 802976639776684 Problem Lumbago with sciatica, right side M54.41 Active 694784845 Problem Non-pressure chronic ulcer o f other part of unspecified foot limited to breakdown of skin L97.501 Active 229021286 Problem Other chronic pain G89.29 Active 8 9744978 Problem Other chronic pain G89.29 Active 8 6998743 Problem Acute right-sided low back pain with right-sided sciatica M54.41 Active 595005833 Problem FDC current use of anticoagulant Z79.01 Active 935986739 Problem 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 34257949 Problem Frequent falls R29.6 Active 66287 2001 Problem HILARIO (obstructive sleep apnea) G47.33 Active 87505764 Problem Cerebrovascular accident (CV A) due to occlusion of other cerebral artery I63.59 Active 662818332 Problem Sciatica M54.30 Active 44596455 Problem Gangrene I96 Active 675711789 Problem Hepatitis C B19.20 Active 40905870 Problem Unsteady gait R26.81 Active 331932 008 Problem Seborrheic keratoses L82.1 Active 194529045 Problem Non-pressure chronic ulcer o f other part of unspecified foot limited to breakdown of skin L97.501 Active 067588625 Problem Urinary frequency R35.0 Active 16 8976120 Problem Necrosis I96 Active 356489551 Problem 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 Active 521330257 Problem Type 2 diabetes mellitus with foot ulcer E11.621 Active 853764645314834 Problem Arterial insufficiency of lower extremity I73.9 Active 273145829029302 Problem Ventricular tachycardia I47.2 Active 61351408 Problem Atherosclerosis of renal artery I70.1 Active 715351451976674 Problem long term care administrator 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 Z79 .01 Active 392501135 Problem 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 Active 673364764 Problem Chronic anticoagulation Z79.01 Active 148110268 Problem Sialoadenitis, unspecified K11.20 Act gulshan 55014465 Problem Current moderate episode of major depressive disorder without prior episode F32.1 Active 64452119 Problem Body mass index (BMI) 29.0-29.9, adult Z68.29 Active 624554754 Problem Systolic congestive heart failure, unspecified HF chronici ty I50.20 Active 25976296 Problem Hypertension I10 Active 2659652 3 Problem Cardiomyopathy of undetermined type I42.9 Active 20407625 ALLERGIES No Information ENCOUNTERS Encounter Location Date Diagnosis [place] [address] [facility] [id number] [address] [place] [phone] 10 Aug, 2019 [facility] [address] [facility] [id number] [address] [place] [phone] 14 Jun, 2019 Frequent headaches R51 [place] [address] [facility] [id number] [address] [place] [id number] 03 Jun, 2019 Systolic congestive heart fa ilure, unspecified HF chronicity I50.20 ; Type 2 diabetes mellitus with foot ulcer E11.621 and Coronary artery disease of absentee-shawnee artery of absentee-shawnee heart with stable angina pectoris I25.118 [place] [id number] [address] [place] [phone] Jun, Other chronic pain G89.29 [facility] [address] [place] [id number] [address] [place] [phone] 16 May, 2019 [facility] [address] [place] [id number] [address] [place] [phone] May, Other chronic pain G89.29 [facility] [address] [address] 20 Apr, 2019 Atherosclerosis of renal art taurus I70.1 ; Cardiomyopathy of undetermined type I42.9 and Ventricular tachycardia I47.2 [facility] [address] [phone] 14 Apr, 2019 [facility] [address] [place] [id number] [place] [id number] 11 Apr, 2019 Non-intractable vomiting wit h nausea, unspecified vomiting type R11.2 [facility] [id number] [place] [phone] 03 Apr, 2019 Other chronic pain G89.29 [facility] [address] [id number] Mar, Other chronic pain G89.29 [facility] [address] [place] [id number] [place] [phone] Feb, Renal insufficiency N28.9 [facility] [id number] [place] [phone] Feb, [facility] [address] [place] [id number] [address] [place] [phone] Feb, Frequent headaches R51 and H ypertension I10 [facility] [address] [place] [id number] [address] [place] [id number] 13 Feb, 2019 Other chronic pain G89.29 [facility] [address] [place] [id number] [place] [phone] Jan, Encounter for Medicare annua l wellness [...] episode F32.1 and Encounter for immunization Z23 [place] [facility] [id number] [address] [place] [phone] 22 Jan, 2019 [place] [address] [facility] [id number] [address] [place] [phone] 13 Jan, 2019 Other chronic pain G89.29 [place] [address] [facility] [id number] [address] [place] [phone] 28 Dec, 2018 [place] [address] [place] [id number] [address] [place] [phone] 15 Dec, 2018 Hypokalemia E87.6 [place] [address] [facility] [id number] [address] [place] [phone] 15 Dec, 2018 Nausea R11.0 [place] [address] [facility] [id number] [address] [place] [phone] 14 Dec, 2018 Other chronic pain G89.29 [place] [address] [facility] [id number] [address] [place] [id number] 10 Dec, 2018 Systolic congestive heart fa ilure, unspecified HF chronicity I50.20 and Ventricular tachycardia I47.2 [place] [facility] [id number] [address] [place] [phone] 08 Dec, 2018 [place] [address] [facility] [id number] [address] [place] [phone] 17 Nov, 2018 Other chronic pain G89.29 [place] [address] [facility] [id number] [address] [place] [phone] 04 Nov, 2018 Nausea with vomiting, unspec ified R11.2 [place] [address] [facility] [id number] [address] [place] [phone] Oct, [facility] [address] [place] [id number] [address] [place] [phone] Oct, Other chronic pain G89.29 [place] [address] [place] [id number] [address] [place] [phone] Oct, [place] [address] [place] [id number] [place] [phone] Oct, Arterial insufficiency of lo wer extremity I73.9 and High risk medication use Z79.899 [facility] [address] [address] Oct, Type 2 diabetes mellitus wit h foot ulcer E11.621 and Non-pressure chronic ulcer of other part of unspecified foot limited to breakdown of skin L97.501 [facility] [address] [place] [id number] [address] [place] [phone] Oct, Gangrene I96 [place] [address] [place] [id number] [address] [place] [phone] Sep, Other chronic pain G89.29 [place] [address] [address] Sep, Status post CVA Z86.73 ; Uns teady gait R26.81 and Frequent falls R29.6 [place] [address] [place] [id number] [address] [place] [phone] Sep, Nausea with vomiting, unspec ified R11.2 [place] [address] [place] [id number] [address] [place] [id number] Sep, Other chronic pain G89.29 [place] [address] [place] [id number] [address] [place] [phone] Aug, [place] [address] [place] [id number] [address] [place] [phone] Aug, Other chronic pain G89.29 [place] [address] [facility] [id number] [address] [place] [phone] July, long term care administrator current use of ant icoagulant Z79.01 and Cerebrovascular accident (CVA) due to occlusion of other cerebral artery I63.59 [place] [address] [facility] [id number] [address] [place] [phone] July, Renal insufficiency N28.9 [place] [address] [id number] [address] [place] [phone] July, Cerebrovascular accident (CV A) due to occlusion of other cerebral artery I63.59 and Unexplained weight loss R63.4 [place] [address] [facility] [id number] [address] [place] [phone] July, [place] [address] [facility] [id number] [address] [place] [phone] July, [place] [address] [facility] [id number] [address] [place] [phone] July, Unexplained weight loss R63. 4 and FDC current use of anticoagulant Z79.01 [place] [address] [facility] [id number] [address] [place] [phone] July, Other chronic pain G89.29 [place] [address] [facility] [id number] [address] [place] [phone] Jun, Other chronic pain G89.29 [place] [address] [facility] [id number] [address] [place] [phone] May, Unexplained weight loss R63. 4 [place] [address] [facility] [id number] [address] [place] [phone] May, Nausea with vomiting, unspec ified R11.2 [place] [address] [facility] [id number] [address] [place] [id number] May, Non-recurrent acute suppurat gulshan otitis media of right ear without spontaneous rupture of tympanic membrane H66.001 and Chronic anticoagulation Z79.01 [facility] [address] [facility] [id number] [address] [place] [phone] May, Other chronic pain G89.29 [facility] [address] [facility] [id number] [address] [place] [id number] 28 Apr, 2018 Skin tear of right forearm w ithout complication, initial encounter S51.811A ; Skin tear of left forearm without complication, initial encounter S51.812A and Encounter for immunization Z23 [facility] [address] [facility] [id number] [address] [place] [phone] Apr, [place] [address] [facility] [id number] [address] [place] [phone] Apr, Diarrhea, unspecified R19.7 ; Nausea with vomiting, unspecified R11.2 and 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 [place] [address] [place] [id number] [address] [place] [phone] 05 Apr, 2018 Other chronic pain G89.29 [place] [address] [place] [id number] [address] [place] [phone] Mar, Other chronic pain G89.29 [place] [address] [place] [id number] [address] [place] [phone] Mar, Other chronic pain G89.29 [place] [address] [facility] [id number] [address] [place] [phone] Mar, [facility] [address] [place] [id number] [address] [place] [phone] Mar, Other organ or system involv ement in systemic lupus erythematosus M32.19 [place] [address] [place] [id number] [address] [place] [phone] Mar, Non-recurrent acute suppurat gulshan otitis media of right ear without spontaneous rupture of tympanic membrane H66.001 and Chronic anticoagulation Z79.01 [facility] [address] [place] [id number] [address] [place] [phone] Feb, Sialoadenitis, unspecified K 11.20 [place] [address] [facility] [id number] [address] [place] [phone] Feb, Other chronic pain G89.29 [place] [address] [facility] [id number] [address] [place] [phone] Jan, long term care administrator current use of ant icoagulant therapy Z79.01 [place] [address] [facility] [id number] [address] [place] [phone] Jan, Other chronic pain G89.29 ; Lumbago with sciatica, right side M54.41 ; Other chronic pain G89.29 ; Tobacco abuse Z72.0 ; Tobacco abuse counseling Z71.6 ; Mixed hyperlipidemia E78.2 and long term care administrator 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 Z79.01 [place] [address] [facility] [id number] [address] [place] [phone] Jan, [place] [address] [facility] [id number] [address] [place] [phone] Dec, [place] [address] [facility] [id number] [address] [place] [phone] Dec, [place] [address] [facility] [id number] [address] [place] [phone] Dec, [place] [address] [facility] [id number] [address] [place] [phone] Dec, Mixed hyperlipidemia E78.2 ; Other chronic [...] involvement in systemic lupus erythematosus M32.19 [facility] [address] [place] [id number] Dec, Right renal artery stenosis I70.1 ; Othe r organ or system involvement in systemic lupus erythematosus M32.19 ; Hepatitis C B19.20 ; Tobacco abuse Z72.0 and Weakness R53.1 [facility] [address] [place] [id number] Dec, [facility] [address] [id number] [address] [place] [phone] Dec, [facility] [address] [id number] [address] [place] [phone] Dec, Other organ or system involv ement in systemic lupus erythematosus M32.19 [facility] [facility] [address] [place] [id number] Dec, Right renal artery stenosis I70.1 ; Inju ry of right kidney, sequela S37.001S ; Tobacco abuse Z72.0 ; Systemic lupus erythematosus, unspecified SLE type, unspecified organ involvement status M32.9 ; Hepatitis C B19.20 and Candidiasis of female genitalia B37.3 [facility] [address] [id number] [address] [place] [id number] Dec, Other organ or system involv ement in systemic lupus erythematosus M32.19 [facility] [address] [id number] [address] [place] [phone] Dec, Other organ or system involv ement in systemic lupus erythematosus M32.19 [facility] [address] [id number] [address] [place] [phone] Dec, [facility] [address] [id number] [address] [place] [phone] Nov, Other organ or system involv ement in systemic lupus erythematosus M32.19 [facility] [address] [id number] [address] [place] [phone] Oct, Other organ or system involv ement in systemic lupus erythematosus M32.19 [facility] [address] [id number] [address] [place] [phone] Sep, Other organ or system involv ement in systemic lupus erythematosus M32.19 [facility] [address] [id number] [address] [place] [phone] Aug, Anxiety F41.9 [facility] [address] [id number] [address] [place] [phone] Aug, Other organ or system involv ement in systemic lupus erythematosus M32.19 [facility] [address] [id number] [address] [place] [phone] July, Medicare annual wellness vis it, initial Z00.00 ; Anxiety F41.9 ; HILARIO (obstructive sleep apnea) G47.33 ; Hepatitis C B19.20 ; Other chronic pain G89.29 ; Asymptomatic menopausal state Z78.0 and Episode of recurrent major depressive disorder, unspecified depression episode severity F33.9 [facility] [address] [facility] [id number] [address] [place] [phone] July, Anxiety F41.9 [facility] [address] [id number] [address] [place] [phone] July, Other organ or system involv ement in systemic lupus erythematosus M32.19 [facility] [address] [id number] [address] [place] [phone] July, [facility] [address] [id number] [address] [place] [phone] Jun, Other organ or system involv ement in systemic lupus erythematosus M32.19 ; BMI 40.0-44.9, adult Z68.41 ; Other chronic pain G89.29 and Controlled substance agreement signed Z79.899 [facility] [address] [facility] [id number] [address] [place] [id number] May, Sciatica M54.30 [facility] [address] [id number] [address] [place] [address] Apr, Sciatica M54.30 [facility] [address] [facility] [id number] [address] [place] [id number] 10 Mar, 2017 Sciatica M54.30 [facility] [address] [id number] [address] [place] [phone] Feb, Sciatica M54.30 [facility] [address] [id number] [address] [place] [phone] 15 Jan, 2017 Sciatica M54.30 [facility] [address] [facility] [id number] [address] [place] [phone] 14 Jan, 2017 Sciatica M54.30 [facility] [address] [facility] [id number] [address] [place] [phone] Dec, Sciatica M54.30 [facility] [address] [facility] [id number] [address] [place] [id number] 18 Dec, 2016 Sciatica M54.30 [facility] [address] [facility] [id number] [address] [place] [phone] 29 Nov, 2016 Mixed hyperlipidemia E78.2 ; Chronic seasonal allergic rhinitis due to other allergen J30.2 and Family history of early CAD Z82.49 [place] [address] [facility] [id number] [address] [place] [phone] Nov, Sciatica M54.30 [facility] [address] [facility] [id number] [address] [place] [phone] 18 Nov, 2016 Mixed hyperlipidemia E78.2 ; Chronic seasonal allergic rhinitis due to other allergen J30.2 ; Family history of early CAD Z82.49 ; Other chronic pain G89.29 and Pain in left shoulder M25.512 [facility] [address] [facility] [id number] [address] [place] [phone] 11 Nov, 2016 Acute pain of left shoulder M25.512 [facility] [address] [facility] [id number] [address] [place] [phone] Oct, Sciatica M54.30 [facility] [address] [facility] [id number] [address] [place] [phone] Oct, [facility] [address] [facility] [id number] [address] [place] [phone] Sep, Sciatica M54.30 [facility] [address] [facility] [id number] [address] [place] [phone] Sep, Acute pain of left shoulder M25.512 [facility] [address] [facility] [id number] [address] [place] [phone] Sep, Acute pain of left shoulder M25.512 [facility] [address] [facility] [id number] [address] [place] [phone] Aug, Sciatica M54.30 [facility] [address] [facility] [id number] [address] [place] [phone] Aug, Sciatica M54.30 ; Tobacco ab use Z72.0 and Tobacco abuse counseling Z71.6 [place] [address] [facility] [id number] [address] [place] [phone] Aug, Acute pain of left shoulder M25.512 [facility] [address] [facility] [id number] [address] [place] [phone] Aug, Contusion of right shoulder, initial encounter S40.011A ; Acute pain of left shoulder M25.512 and Shortness of breath R06.02 [facility] [address] [facility] [id number] [address] [place] [phone] Aug, Lumbago with sciatica, right side M54.41 [facility] [address] [facility] [id number] [address] [place] [phone] July, [facility] [address] [facility] [id number] [address] [place] [phone] July, Lumbago with sciatica, right side M54.41 [facility] [address] [facility] [id number] [address] [place] [phone] Jun, Lumbago with sciatica, right side M54.41 [facility] [address] [id number] [address] [place] [phone] May, Lumbago with sciatica, right side M54.41 [facility] [address] [facility] [id number] [address] [place] [phone] May, Herpes zoster without compli cation B02.9 [facility] [address] [facility] [id number] [address] [place] [phone] May, Back pain M54.9 and Acute ri ght-sided low back pain with right-sided sciatica M54.41 [facility] [address] [id number] [address] [place] [id number] Apr, [facility] [address] [facility] [id number] [address] [place] [id number] Apr, Lumbago with sciatica, right side M54.41 and Other chronic pain G89.29 [facility] [address] [facility] [id number] [address] [place] [phone] Apr, [facility] [address] [facility] [id number] [address] [place] [id number] Mar, [facility] [address] [facility] [id number] [address] [place] [id number] Mar, [facility] [address] [facility] [id number] [address] [place] [phone] Feb, [facility] [address] [facility] [id number] [address] [place] [id number] Jan, Urinary frequency R35.0 [facility] [address] [facility] [id number] [address] [place] [id number] Jan, [facility] [address] [facility] [id number] [address] [place] [id number] Dec, [facility] [address] [facility] [id number] [address] [place] [id number] Oct, [facility] [address] [id number] [address] [place] [id number] Sep, [facility] [address] [id number] [address] [place] [phone] Sep, Foreign body in left foot, i nitial encounter S90.852A [facility] [address] [id number] [address] [place] [id number] Aug, [facility] [address] [id number] [address] [place] [id number] July, Sciatica M54.30 [facility] [address] [id number] [address] [place] [address] Jun, [facility] [address] [facility] [id number] [address] [place] [id number] May, Osteoarthritis M19.90 [facility] [address] [facility] [id number] [address] [place] [id number] May, [facility] [address] [facility] [id number] [address] [place] [id number] May, Pain in right hip M25.551 [facility] [address] [facility] [id number] [address] [place] [id number] May, Tinea corporis B35.4 [facility] [address] [facility] [id number] [address] [place] [address] Apr, Pain in right hip M25.551 [facility] [address] [facility] [id number] [address] [place] [id number] Mar, Pain in right hip M25.551 [facility] [address] [facility] [id number] [address] [place] [id number] Mar, [facility] [address] [facility] [id number] [address] [place] [id number] Feb, Pain in right hip M25.551 [facility] [address] [facility] [id number] [address] [place] [id number] Jan, Acute bronchitis, unspecifie d organism J20.9 and Cough R05 [facility] [address] [id number] [address] [place] [id number] Jan, Pain in right hip M25.551 [facility] [address] [id number] [address] [place] [address] Dec, Pain in right hip M25.551 [facility] [address] [id number] [address] [place] [id number] Nov, Acute bronchitis 466.0 [facility] [address] [id number] [address] [place] [phone] Nov, [facility] [address] [id number] [address] [place] [id number] Oct, [facility] [address] [id number] [address] [place] [phone] Sep, [facility] [address] [id number] [address] [place] [id number] Aug, [facility] [address] [id number] [address] [place] [id number] July, [facility] [address] [id number] [address] [place] [id number] Jun, [facility] [address] [id number] [address] [place] [id number] Jun, [facility] [address] [id number] [address] [place] [id number] May, [facility] [address] [id number] [address] [place] [phone] May, [facility] [address] [id number] [address] [place] [id number] Apr, [facility] [address] [id number] [address] [place] [id number] Apr, [facility] [address] [id number] [address] [place] [address], [place] [address] 11 Apr, 2014 [facility] [address] [id number] [address] [place] [address], [place] [address] Apr, 2014 [facility] [address] [id number] [address] [place] [address], [place] [address] Apr, 2014 [facility] [address] [id number] [address] [place] [address], [place] [address] Apr, 2014 [facility] [address] [id number] [address] [place] [address], [place] [address] Mar, [facility] [address] [id number] [address] [place] [address], [place] [address] Mar, [facility] [address] [id number] [address] [place] [address], [place] [address] Feb, [facility] [address] [id number] [address] [place] [address], [place] [address] Feb, [facility] [address] [id number] [address] [place] [address], [place] [address] Feb, [facility] [address] [id number] [address] [place] [address], [place] [address] Dec, [facility] [address] [id number] [address] [place] [address], [place] [address] Dec, [facility] [address] [id number] [address] [place] [address], [place] [address] Nov, [facility] [address] [id number] [address] [place] [address], [place] [address] Nov, [facility] [address] [id number] [address] [place] [address], [place] [address] 02 Nov, 2013 [facility] [address] [id number] [address] [place] [address], [place] [address] 02 Nov, 2013 [facility] [address] [id number] [address] [place] [address], [place] [address] Sep, [facility] [address] [id number] [facility] [place] [address] Sep, [facility] [address] [id number] [address] [place] [address], [place] [address] Sep, [facility] [address] [id number] [address] [place] [address], [place] [address] Sep, [facility] [address] [id number] [address] [place] [address], [place] [address] Aug, [facility] [address] [id number] [address] [place] [address], [place] [address] Aug, [facility] [address] [id number] [address] [place] [address], [place] [address] Aug, [facility] [address] [id number] [address] [place] [address], [place] [address] Aug, [facility] [address] [id number] [address] [place] [address], [place] [address] July, [facility] [address] [id number] [address] [place] [address], [place] [address] July, [facility] [address] [id number] [address] [place] [address], [place] [address] Jun, [facility] [address] [id number] [address] [place] [address], [place] [address] Jun, [facility] [address] [id number] [address] [place] [address], [place] [address] Jun, [facility] [address] [id number] [address] [place] [address], [place] [address] Jun, [facility] [address] [id number] [address] [place] [address], [place] [address] Jun, [facility] [address] [id number] [address] [place] [address], [place] [address] Jun, [facility] [address] [id number] [facility] [place] [address] Jun, [facility] [address] [id number] [address] [place] [address], [place] [address] Jun, [facility] [address] [id number] [address] [place] [address], [place] [address] May, [facility] [address] [id number] [address] [place] [address], [place] [address] May, [facility] [address] [id number] [address] [place] [address], [place] [address] May, [facility] [address] [id number] [address] [place] [address], [place] [address] May, [facility] [address] [id number] [address] [place] [address], [place] [address] May, [facility] [address] [id number] [address] [place] [address], [place] [address] May, [facility] [address] [id number] [address] [place] [address], [place] [address] Apr, [facility] [address] [id number] [address] [place] [address], [place] [address] Apr, [facility] [address] [id number] [address] [place] [address], [place] [address] Apr, [facility] [address] [id number] [address] [place] [address], [place] [address] Apr, [facility] [address] [id number] [address] [place] [address], [place] [address] Mar, [facility] [address] [id number] [address] [place] [address], [place] [address] Mar, [facility] [address] [id number] [address] [place] [address], [place] [address] Mar, [facility] [address] [id number] [address] [place] [address] [address] Mar, [facility] [address] [id number] [address] [place] [address], [place] [address] Mar, [facility] [address] [id number] [address] [place] [address], [place] [address] Mar, [facility] [address] [id number] [address] [place] [address], [place] [address] Feb, [facility] [address] [id number] [address] [place] [address], [place] [address] Feb, [facility] [address] [id number] [address] [place] [address], [place] [address] Feb, [facility] [address] [id number] [address] [place] [address], [place] [address] Feb, [facility] [address] [id number] [address] [place] [address], [place] [address] Feb, [facility] [address] [id number] [address] [place] [address], [place] [address] Feb, [facility] [address] [id number] [address] [place] [address], [place] [address] Feb, [facility] [address] [id number] [address] [place] [address], [place] [address] Feb, [facility] [address] [id number] [address] [place] [address], [place] [address] Feb, [facility] [address] [id number] [address] [place] [address], [place] [address] Feb, [facility] [address] [id number] [address] [place] [address], [place] [address] Feb, [facility] [address] [id number] [address] [place] [address], [place] [address] Feb, [facility] [address] [id number] [address] [place] [address], [place] [address] Jan, [facility] [address] [id number] [address] [place] [address], [place] [address] Jan, [facility] [address] [id number] [address] [place] [address], [place] [address] Jan, [facility] [address] [id number] [address] [place] [address], [place] [address] Jan, [facility] [address] [id number] [address] [place] [address], [place] [address] Jan, [facility] [address] [id number] [address] [place] [address], [place] [address] Jan, [facility] [address] [id number] [address] [place] [address], [place] [address] Jan, [facility] [address] [id number] [address] [place] [address], [place] [address] Jan, [facility] [address] [id number] [address] [place] [address], [place] [address] Jan, [facility] [address] [id number] [address] [place] [address], [place] [address] Jan, [facility] [address] [id number] [address] [place] [address], [place] [address] Dec, [facility] [address] [id number] [address] [place] [address], [place] [address] Dec, [facility] [address] [id number] [address] [place] [address], [place] [address] Nov, 2012 [facility] [address] [id number] [address] [place] [address], [place] [address] 25 Sep, 2012 [facility] [address] [id number] [address] [place] [address], [place] [address] 09 Sep, 2012 [facility] [address] [id number] [address] [place] [address], [place] [address] 05 Sep, 2012 [facility] [address] [id number] [address] [place] [address], [place] [address] Nov, [facility] [address] [id number] [address] [place] [address], [place] [address] Oct, [facility] [address] [id number] [address] [place] [address], [place] [address] Oct, [facility] [address] [id number] [address] [place] [address], [place] [address] Oct, [facility] [address] [id number] [address] [place] [address], [place] [address] Oct, [facility] [address] [id number] [address] [place] [address], [place] [address] Oct, [facility] [address] [id number] [address] [place] [address], [place] [address] Sep, [facility] [address] [id number] [address] [place] [address], [place] [address] Sep, [facility] [address] [id number] [address] [place] [address], [place] [address] Sep, [facility] [address] [id number] [address] [place] [address], [place] [address] Sep, [facility] [address] [id number] [address] [place] [address], [place] [address] Sep, [facility] [address] [id number] [address] [place] [address], [place] [address] Sep, [facility] [address] [id number] [address] [place] [address], [place] [address] Aug, [facility] [address] [id number] [address] [place] [address], [place] [address] Aug, [facility] [address] [id number] [address] [place] [address], [place] [address] July, [facility] [address] [id number] [address] [place] [address], [place] [address] July, [facility] [address] [id number] [address] [place] [address] July, [facility] [address] [id number] [address] [place] [address], [place] [address] Jun, [facility] [address] [id number] [address] [place] [address], [place] [address] Jun, [facility] [address] [id number] [address] [place] [address], [place] [address] Jun, [facility] [address] [id number] [address] [place] [address] Jun, [facility] [address] [id number] [address] [place] [address], [place] [address] May, [facility] [address] [id number] [address] [place] [address], [place] [address] May, [facility] [address] [id number] [address] [place] [address] Apr, [facility] [address] [id number] [address] [place] [address], [place] [address] Apr, [facility] [address] [id number] [address] [place] [address] Apr, [facility] [address] [id number] [address] [place] [address] Apr, [facility] [address] [id number] [address] [place] [address] Apr, [facility] [address] [id number] [address] [place] [address] Apr, [facility] [address] [id number] [address] [place] [id number] Apr, [facility] [address] [id number] [address] [place] [address] Apr, [facility] [address] [id number] [address] [place] [address] Mar, [facility] [address] [id number] [address] [place] [address], [place] [address] Mar, [facility] [address] [id number] [address] [place] [address], [place] [address] Mar, [facility] [address] [id number] [address] [place] [address], [place] [address] Mar, [facility] [address] [id number] [address] [place] [address], [place] [address] Jan, [facility] [address] [id number] [address] [place] [address], [place] [address] Jan, [facility] [address] [id number] [address] [place] [address], [place] [address] Jan, [facility] [address] [id number] [address] [place] [address], [place] [address] Jan, [facility] [address] [id number] [address] [place] [address], [place] [address] Jan, [facility] [address] [id number] [address] [place] [address], [place] [address] Dec, [facility] [address] [id number] [address] [place] [address], [place] [address] Dec, [facility] [address] [id number] [address] [place] [address], [place] [address] Dec, [facility] [address] [id number] [address] [place] [address], [place] [address] Dec, [facility] [address] [id number] [address] [place] [address], [place] [address] Nov, [facility] [address] [id number] [address] [place] [address], [place] [address] Oct, [facility] [address] [id number] [address] [place] [address], [place] [address] Oct, [facility] [address] [id number] [address] [place] [address], [place] [id number] Oct, [facility] [address] [id number] [address] [place] [address], [place] [id number] Oct, [facility] [address] [id number] [address] [place] [address], [place] [address] Oct, [facility] [address] [id number] [address] [place] [address], [place] [id number] Sep, [facility] [address] [id number] [address] [place] [address], [place] [address] Sep, [facility] [address] [id number] [address] [place] [address], [place] [address] Aug, [facility] [address] [id number] [address] [place] [address], [place] [address] Aug, [facility] [address] [id number] [address] [place] [address], [place] [address] Aug, [facility] [address] [id number] [address] [place] [address], [place] [address] Aug, [facility] [address] [id number] [address] [place] [address], [place] [address] July, [facility] [address] [id number] [address] [place] [address], [place] [id number] Jun, [facility] [address] [id number] [address] [place] [address], [place] [id number] May, [facility] [address] [id number] [address] [place] [address], [place] [address] May, [facility] [address] [id number] [address] [place] [address], [place] [address] May, [facility] [address] [id number] [address] [place] [address], [place] [address] Mar, [facility] [address] [id number] [address] [place] [address], [place] [address] Feb, [facility] [address] [id number] [address] [place] [id number] Feb, [facility] [address] [id number] [address] [place] [id number] Jan, [facility] [address] [id number] [address] [place] [id number] Jan, [facility] [address] [id number] [address] [place] [id number] Jan, [facility] [address] [id number] [address] [place] [id number] Jan, [facility] [address] [id number] [address] [place] [id number] Jan, [facility] [address] [id number] [address] [place] [id number] Dec, [facility] [address] [id number] [address] [place] [id number] Dec, [facility] [address] [id number] [address] [place] [id number] Dec, [facility] [address] [id number] [address] [place] [id number] May, [facility] [address] [id number] [address] [place] [id number] May, [facility] [address] [id number] [address] [place] [id number] Apr, [facility] [address] [id number] [address] [place] [id number] Jan, [facility] [address] [id number] [address] [place] [id number] Apr, IMMUNIZATIONS No Known Immunizations SOCIAL HISTORY [...] for cancer Hospitalization History surgeries Hospitalization History [facility] ER, heart- kidney- Stayed a t [facility] ICU 12/2017 Hospitalization History [facility] ER 03/2018 Hospitalization History [facility]- Stroke 2 weeks 06/2018 Hospitalization History ER 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
--- OUTSIDE RECORDS SUMMARY | 2019-10-19 08:28 | XMS REPORT ---
Author Author Luanne GLORIA Organization [facility] Address [address] [place] [address] Care Team Providers Care Traffic Observer Name Role Phone CHRISTA GLORIA Unavailable PROBLEMS Type Condition ICD9-CM Code FMO01-SG Code Onset Dates Condition S tatus SNOMED Code Problem Mixed hyperlipidemia E78.2 Active 641736898 Problem Anxiety F41.9 Active 58562875 Problem Other organ or system involvement in systemic julito pus erythematosus M32.19 Active 31147513 Problem Episode of recurrent major d epressive disorder, unspecified depression episode severity F33.9 Active 956980451 Problem Asymptomatic menopausal state Z78.0 Active 92429925 Problem Systemic lupus erythematosus , unspecified SLE type, unspecified organ involvement status M32.9 Active 47717474 Problem Right renal artery stenosis I70.1 Ac tive [id number] Problem Type 2 diabetes mellitus with foot ulcer E11.621 Active 119227857956733 Problem Lumbago with sciatica, right side M54.41 Active 928729433 Problem Non-pressure chronic ulcer o f other part of unspecified foot limited to breakdown of skin L97.501 Active 188490222 Problem Other chronic pain G89.29 Active 8 4567292 Problem Other chronic pain G89.29 Active 8 6605874 Problem Acute right-sided low back pain with right-sided sciatica M54.41 Active 622953405 Problem residential current use of anticoagulant Z79.01 Active 062620001 Problem 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 48139452 Problem Frequent falls R29.6 Active 85377 2001 Problem HILARIO (obstructive sleep apnea) G47.33 Active 01783057 Problem Cerebrovascular accident (CV A) due to occlusion of other cerebral artery I63.59 Active 076451457 Problem Sciatica M54.30 Active 21279994 Problem Gangrene I96 Active 006119373 Problem Hepatitis C B19.20 Active 57403479 Problem Unsteady gait R26.81 Active 380390 008 Problem Seborrheic keratoses L82.1 Active 733081152 Problem Non-pressure chronic ulcer o f other part of unspecified foot limited to breakdown of skin L97.501 Active 947182604 Problem Urinary frequency R35.0 Active 16 1933841 Problem Necrosis I96 Active 086511226 Problem 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 Active 067361200 Problem Type 2 diabetes mellitus with foot ulcer E11.621 Active 928688778529726 Problem Arterial insufficiency of lower extremity I73.9 Active 576671731630100 Problem Ventricular tachycardia I47.2 Active 06016002 Problem Atherosclerosis of renal artery I70.1 Active 649302066873104 Problem 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 Active 287637033 Problem 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 Active 524042795 Problem Chronic anticoagulation Z79.01 Active 465892173 Problem Sialoadenitis, unspecified K11.20 Act gulshan 50399168 Problem Current moderate episode of major depressive disorder without prior episode F32.1 Active 71982965 Problem Body mass index (BMI) 29.0-29.9, adult Z68.29 Active 370627012 Problem Systolic congestive heart failure, unspecified HF chronici ty I50.20 Active 71282589 Problem Hypertension I10 Active 6853456 3 Problem Cardiomyopathy of undetermined type I42.9 Active 88847255 ALLERGIES No Information ENCOUNTERS Encounter Location Date Diagnosis [place] [address] [address] [facility] [id number] [address] [place] [address] 10 Aug, 2019 [facility] [address] [facility] [id number] [address] [place] [address] 14 Jun, 2019 Frequent headaches R51 [place] [address] [facility] [id number] [address] [place] [address] 03 Jun, 2019 Systolic congestive heart fa ilure, unspecified HF chronicity I50.20 ; Type 2 diabetes mellitus with foot ulcer E11.621 and Coronary artery disease of [place] artery of [place] heart with stable angina pectoris I25.118 [place] [address] [place] [id number] [address] [place] [address] Jun, Other chronic pain G89.29 [facility] [address] [place] [id number] [address] [place] [address] 16 May, 2019 [facility] [address] [place] [id number] [address] [place] [address] May, Other chronic pain G89.29 [facility] [address] [address] 20 Apr, 2019 Atherosclerosis of renal art taurus I70.1 ; Cardiomyopathy of undetermined type I42.9 and Ventricular tachycardia I47.2 [facility] [address] [address] 14 Apr, 2019 [facility] [address] [place] [id number] [place] [address] 11 Apr, 2019 Non-intractable vomiting wit h nausea, unspecified vomiting type R11.2 [facility] [id number] [place] [address] 03 Apr, 2019 Other chronic pain G89.29 [facility] [address] [address] Mar, Other chronic pain G89.29 [facility] [address] [place] [id number] [place] [address] Feb, Renal insufficiency N28.9 [facility] [id number] [place] [address] Feb, [facility] [address] [place] [id number] [address] [place] [address] Feb, Frequent headaches R51 and H ypertension I10 [facility] [address] [place] [id number] [address] [place] [address] 13 Feb, 2019 Other chronic pain G89.29 [facility] [address] [place] [id number] [place] [address] Jan, Encounter for Medicare annua l wellness [...] episode F32.1 and Encounter for immunization Z23 [place] [address] [facility] [id number] [address] [place] [address] 22 Jan, 2019 [place] [address] [address] [facility] [id number] [address] [place] [address] 13 Jan, 2019 Other chronic pain G89.29 [place] [address] [address] [facility] [id number] [address] [place] [address] 28 Dec, 2018 [place] [address] [address] [place] [id number] [address] [place] [address] 15 Dec, 2018 Hypokalemia E87.6 [place] [address] [address] [facility] [id number] [address] [place] [address] 15 Dec, 2018 Nausea R11.0 [place] [address] [address] [facility] [id number] [address] [place] [address] 14 Dec, 2018 Other chronic pain G89.29 [place] [address] [address] [facility] [id number] [address] [place] [address] 10 Dec, 2018 Systolic congestive heart fa ilure, unspecified HF chronicity I50.20 and Ventricular tachycardia I47.2 [place] [address] [facility] [id number] [address] [place] [address] 08 Dec, 2018 [place] [address] [address] [facility] [id number] [address] [place] [address] 17 Nov, 2018 Other chronic pain G89.29 [place] [address] [address] [facility] [id number] [address] [place] [address] 04 Nov, 2018 Nausea with vomiting, unspec ified R11.2 [place] [address] [facility] [id number] [address] [place] [address] Oct, [facility] [address] [place] [id number] [address] [place] [address] Oct, Other chronic pain G89.29 [place] [address] [address] [place] [id number] [address] [place] [address] Oct, [place] [address] [address] [place] [id number] [place] [address] Oct, Arterial insufficiency of lo wer extremity I73.9 and High risk medication use Z79.899 [facility] [address] [address] Oct, Type 2 diabetes mellitus wit h foot ulcer E11.621 and Non-pressure chronic ulcer of other part of unspecified foot limited to breakdown of skin L97.501 [facility] [address] [place] [id number] [address] [place] [address] Oct, Gangrene I96 [place] [address] [address] [place] [id number] [address] [place] [address] Sep, Other chronic pain G89.29 [place] [address] [address] Sep, Status post CVA Z86.73 ; Uns teady gait R26.81 and Frequent falls R29.6 [place] [address] [address] [place] [id number] [address] [place] [address] Sep, Nausea with vomiting, unspec ified R11.2 [place] [address] [address] [place] [id number] [address] [place] [address] Sep, Other chronic pain G89.29 [place] [address] [address] [place] [id number] [address] [place] [address] Aug, [place] [address] [address] [place] [id number] [address] [place] [address] Aug, Other chronic pain G89.29 [place] [address] [address] [facility] [id number] [address] [place] [address] July, 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.01 and Cerebrovascular accident (CVA) due to occlusion of other cerebral artery I63.59 [place] [address] [address] [facility] [id number] [address] [place] [address] July, Renal insufficiency N28.9 [place] [address] [id number] [address] [place] [address] July, Cerebrovascular accident (CV A) due to occlusion of other cerebral artery I63.59 and Unexplained weight loss R63.4 [place] [address] [address] [facility] [id number] [address] [place] [address] July, [place] [address] [address] [facility] [id number] [address] [place] [address] July, [place] [address] [address] [facility] [id number] [address] [place] [address] July, Unexplained weight loss R63. 4 and residential current use of anticoagulant Z79.01 [place] [address] [address] [facility] [id number] [address] [place] [address] July, Other chronic pain G89.29 [place] [address] [address] [facility] [id number] [address] [place] [address] Jun, Other chronic pain G89.29 [place] [address] [address] [facility] [id number] [address] [place] [address] May, Unexplained weight loss R63. 4 [place] [address] [address] [facility] [id number] [address] [place] [address] May, Nausea with vomiting, unspec ified R11.2 [place] [address] [address] [facility] [id number] [address] [place] [address] May, Non-recurrent acute suppurat gulshan otitis media of right ear without spontaneous rupture of tympanic membrane H66.001 and Chronic anticoagulation Z79.01 [facility] [address] [facility] [id number] [address] [place] [address] May, Other chronic pain G89.29 [facility] [address] [facility] [id number] [address] [place] [address] 28 Apr, 2018 Skin tear of right forearm w ithout complication, initial encounter S51.811A ; Skin tear of left forearm without complication, initial encounter S51.812A and Encounter for immunization Z23 [facility] [address] [facility] [id number] [address] [place] [address] Apr, [place] [address] [address] [facility] [id number] [address] [place] [address] Apr, Diarrhea, unspecified R19.7 ; Nausea with vomiting, unspecified R11.2 and 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 [place] [address] [address] [place] [id number] [address] [place] [address] 05 Apr, 2018 Other chronic pain G89.29 [place] [address] [place] [id number] [address] [place] [address] Mar, Other chronic pain G89.29 [place] [address] [address] [place] [id number] [address] [place] [address] Mar, Other chronic pain G89.29 [place] [address] [address] [facility] [id number] [address] [place] [address] Mar, [facility] [address] [place] [id number] [address] [place] [address] Mar, Other organ or system involv ement in systemic lupus erythematosus M32.19 [place] [address] [address] [place] [id number] [address] [place] [address] Mar, Non-recurrent acute suppurat gulshan otitis media of right ear without spontaneous rupture of tympanic membrane H66.001 and Chronic anticoagulation Z79.01 [facility] [address] [place] [id number] [address] [place] [address] Feb, Sialoadenitis, unspecified K 11.20 [place] [address] [address] [facility] [id number] [address] [place] [address] Feb, Other chronic pain G89.29 [place] [address] [address] [facility] [id number] [address] [place] [address] Jan, 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 Z79.01 [place] [address] [address] [facility] [id number] [address] [place] [address] Jan, Other chronic pain G89.29 ; Lumbago with sciatica, right side M54.41 ; Other chronic pain G89.29 ; Tobacco abuse Z72.0 ; Tobacco abuse counseling Z71.6 ; Mixed hyperlipidemia E78.2 and 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 [place] [address] [address] [facility] [id number] [address] [place] [address] Jan, [place] [address] [address] [facility] [id number] [address] [place] [address] Dec, [place] [address] [address] [facility] [id number] [address] [place] [address] Dec, [place] [address] [address] [facility] [id number] [address] [place] [address] Dec, [place] [address] [address] [facility] [id number] [address] [place] [address] Dec, Mixed hyperlipidemia E78.2 ; Other chronic [...] involvement in systemic lupus erythematosus M32.19 [facility] [address] [place] [id number] Dec, Right renal artery stenosis I70.1 ; Othe r organ or system involvement in systemic lupus erythematosus M32.19 ; Hepatitis C B19.20 ; Tobacco abuse Z72.0 and Weakness R53.1 [facility] [address] [place] [id number] Dec, [facility] [address] [id number] [address] [place] [address] Dec, [facility] [address] [id number] [address] [place] [address] Dec, Other organ or system involv ement in systemic lupus erythematosus M32.19 Via [facility] [employer] [address] [place] [id number] Dec, Right renal artery stenosis I70.1 ; Inju ry of right kidney, sequela S37.001S ; Tobacco abuse Z72.0 ; Systemic lupus erythematosus, unspecified SLE type, unspecified organ involvement status M32.9 ; Hepatitis C B19.20 and Candidiasis of female genitalia B37.3 [facility] [address] [id number] [address] [place] [address] Dec, Other organ or system involv ement in systemic lupus erythematosus M32.19 [facility] [address] [id number] [address] [place] [address] Dec, Other organ or system involv ement in systemic lupus erythematosus M32.19 [facility] [address] [id number] [address] [place] [address] Dec, [facility] [address] [id number] [address] [place] [address] Nov, Other organ or system involv ement in systemic lupus erythematosus M32.19 [facility] [address] [id number] [address] [place] [address] Oct, Other organ or system involv ement in systemic lupus erythematosus M32.19 [facility] [address] [id number] [address] [place] [address] Sep, Other organ or system involv ement in systemic lupus erythematosus M32.19 [facility] [address] [id number] [address] [place] [address] Aug, Anxiety F41.9 [facility] [address] [id number] [address] [place] [address] Aug, Other organ or system involv ement in systemic lupus erythematosus M32.19 [facility] [address] [id number] [address] [place] [address] July, Medicare annual wellness vis it, initial Z00.00 ; Anxiety F41.9 ; HILARIO (obstructive sleep apnea) G47.33 ; Hepatitis C B19.20 ; Other chronic pain G89.29 ; Asymptomatic menopausal state Z78.0 and Episode of recurrent major depressive disorder, unspecified depression episode severity F33.9 [facility] [address] [facility] [id number] [address] [place] [address] July, Anxiety F41.9 [facility] [address] [id number] [address] [place] [address] July, Other organ or system involv ement in systemic lupus erythematosus M32.19 [facility] [address] [id number] [address] [place] [address] July, [facility] [address] [id number] [address] [place] [address] Jun, Other organ or system involv ement in systemic lupus erythematosus M32.19 ; BMI 40.0-44.9, adult Z68.41 ; Other chronic pain G89.29 and Controlled substance agreement signed Z79.899 [facility] [address] [facility] [id number] [address] [place] [address] May, Sciatica M54.30 [facility] [address] [id number] [address] [place] [address] Apr, Sciatica M54.30 [facility] [address] [facility] [id number] [address] [place] [address] 10 Mar, 2017 Sciatica M54.30 [facility] [address] [id number] [address] [place] [address] Feb, Sciatica M54.30 [facility] [address] [id number] [address] [place] [address] 15 Jan, 2017 Sciatica M54.30 [facility] [address] [facility] [id number] [address] [place] [address] 14 Jan, 2017 Sciatica M54.30 [facility] [address] [facility] [id number] [address] [place] [address] Dec, Sciatica M54.30 [facility] [address] [facility] [id number] [address] [place] [address] 18 Dec, 2016 Sciatica M54.30 [facility] [address] [facility] [id number] [address] [place] [address] 29 Nov, 2016 Mixed hyperlipidemia E78.2 ; Chronic seasonal allergic rhinitis due to other allergen J30.2 and Family history of early CAD Z82.49 [place] [address] [address] [facility] [id number] [address] [place] [address] Nov, Sciatica M54.30 [facility] [address] [facility] [id number] [address] [place] [address] 18 Nov, 2016 Mixed hyperlipidemia E78.2 ; Chronic seasonal allergic rhinitis due to other allergen J30.2 ; Family history of early CAD Z82.49 ; Other chronic pain G89.29 and Pain in left shoulder M25.512 [facility] [address] [facility] [id number] [address] [place] [address] 11 Nov, 2016 Acute pain of left shoulder M25.512 [facility] [address] [facility] [id number] [address] [place] [address] Oct, Sciatica M54.30 [facility] [address] [facility] [id number] [address] [place] [address] Oct, [facility] [address] [facility] [id number] [address] [place] [address] Sep, Sciatica M54.30 [facility] [address] [facility] [id number] [address] [place] [address] Sep, Acute pain of left shoulder M25.512 [facility] [address] [facility] [id number] [address] [place] [address] Sep, Acute pain of left shoulder M25.512 [facility] [address] [facility] [id number] [address] [place] [address] Aug, Sciatica M54.30 [facility] [address] [facility] [id number] [address] [place] [address] Aug, Sciatica M54.30 ; Tobacco ab use Z72.0 and Tobacco abuse counseling Z71.6 [place] [address] [address] [facility] [id number] [address] [place] [address] Aug, Acute pain of left shoulder M25.512 [facility] [address] [facility] [id number] [address] [place] [address] Aug, Contusion of right shoulder, initial encounter S40.011A ; Acute pain of left shoulder M25.512 and Shortness of breath R06.02 [facility] [address] [facility] [id number] [address] [place] [address] Aug, Lumbago with sciatica, right side M54.41 [facility] [address] [facility] [id number] [address] [place] [address] July, [facility] [address] [facility] [id number] [address] [place] [address] July, Lumbago with sciatica, right side M54.41 [facility] [address] [facility] [id number] [address] [place] [address] Jun, Lumbago with sciatica, right side M54.41 [facility] [address] [id number] [address] [place] [address] May, Lumbago with sciatica, right side M54.41 [facility] [address] [facility] [id number] [address] [place] [address] May, Herpes zoster without compli cation B02.9 [facility] [address] [facility] [id number] [address] [place] [address] May, Back pain M54.9 and Acute ri ght-sided low back pain with right-sided sciatica M54.41 [facility] [address] [id number] [address] [place] [address] Apr, [facility] [address] [facility] [id number] [address] [place] [address] Apr, Lumbago with sciatica, right side M54.41 and Other chronic pain G89.29 [facility] [address] [facility] [id number] [address] [place] [phone] Apr, [facility] [address] [facility] [id number] [address] [place] [address] Mar, [facility] [address] [facility] [id number] [address] [place] [id number] Mar, [facility] [address] [facility] [id number] [address] [place] [id number] Feb, [facility] [address] [facility] [id number] [address] [place] [id number] Jan, Urinary frequency R35.0 [facility] [address] [facility] [id number] [address] [place] [phone] Jan, [facility] [address] [facility] [id number] [address] [place] [id number] Dec, [facility] [address] [facility] [id number] [address] [place] [address] Oct, [facility] [address] [id number] [address] [place] [address] Sep, [facility] [address] [id number] [address] [place] [address] Sep, Foreign body in left foot, i nitial encounter S90.852A [facility] [address] [id number] [address] [place] [address] Aug, [facility] [address] [id number] [address] [place] [address] July, Sciatica M54.30 [facility] [address] [id number] [address] [place] [address] Jun, [facility] [address] [facility] [id number] [address] [place] [address] May, Osteoarthritis M19.90 [facility] [address] [facility] [id number] [address] [place] [address] May, [facility] [address] [facility] [id number] [address] [place] [address] May, Pain in right hip M25.551 [facility] [address] [facility] [id number] [address] [place] [address] May, Tinea corporis B35.4 [facility] [address] [facility] [id number] [address] [place] [address] Apr, Pain in right hip M25.551 [facility] [address] [facility] [id number] [address] [place] [address] Mar, Pain in right hip M25.551 [facility] [address] [facility] [id number] [address] [place] [address] Mar, [facility] [address] [facility] [id number] [address] [place] [address] Feb, Pain in right hip M25.551 [facility] [address] [facility] [id number] [address] [place] [address] Jan, Acute bronchitis, unspecifie d organism J20.9 and Cough R05 [facility] [address] [id number] [address] [place] [address] Jan, Pain in right hip M25.551 [facility] [address] [id number] [address] [place] [address] Dec, Pain in right hip M25.551 [facility] [address] [id number] [address] [place] [address] Nov, Acute bronchitis 466.0 [facility] [address] [id number] [address] [place] [address] Nov, [facility] [address] [id number] [address] [place] [address] Oct, [facility] [address] [id number] [address] [place] [address] Sep, [facility] [address] [id number] [address] [place] [address] Aug, [facility] [address] [id number] [address] [place] [address] July, [facility] [address] [id number] [address] [place] [address] Jun, [facility] [address] [id number] [address] [place] [address] Jun, [facility] [address] [id number] [address] [place] [address] May, [facility] [address] [id number] [address] [place] [address] May, [facility] [address] [id number] [address] [place] [address] Apr, [facility] [address] [id number] [address] [place] [address] Apr, [facility] [address] [id number] [address] [place] [address], [place] [address] 11 Apr, 2014 [facility] [address] [id number] [address] [place] [address], [place] [address] Apr, 2014 [facility] [address] [id number] [address] [place] [address], [place] [address] Apr, 2014 [facility] [address] [id number] [address] [place] [address], [place] [address] Apr, 2014 [facility] [address] [id number] [address] [place] [address], [place] [address] Mar, [facility] [address] [id number] [address] [place] [address], [place] [address] Mar, [facility] [address] [id number] [address] [place] [address], [place] [address] Feb, [facility] [address] [id number] [address] [place] [address], [place] [address] Feb, [facility] [address] [id number] [address] [place] [address], [place] [address] Feb, [facility] [address] [id number] [address] [place] [address], [place] [address] Dec, [facility] [address] [id number] [address] [place] [address], [place] [address] Dec, [facility] [address] [id number] [address] [place] [address], [place] [address] Nov, [facility] [address] [id number] [address] [place] [address], [place] [address] Nov, [facility] [address] [id number] [address] [place] [address], [place] [address] 02 Nov, 2013 [facility] [address] [id number] [address] [place] [address], [place] [address] 02 Nov, 2013 [facility] [address] [id number] [address] [place] [address], [place] [address] Sep, [facility] [address] [id number] [facility] [place] [address] Sep, [facility] [address] [id number] [address] [place] [address], [place] [address] Sep, [facility] [address] [id number] [address] [place] [address], [place] [address] Sep, [facility] [address] [id number] [address] [place] [address], [place] [address] Aug, [facility] [address] [id number] [address] [place] [address], [place] [address] Aug, [facility] [address] [id number] [address] [place] [address], [place] [address] Aug, [facility] [address] [id number] [address] [place] [address], [place] [address] Aug, [facility] [address] [id number] [address] [place] [address], [place] [address] July, [facility] [address] [id number] [address] [place] [address], [place] [address] July, [facility] [address] [id number] [address] [place] [address], [place] [address] Jun, [facility] [address] [id number] [address] [place] [address], [place] [address] Jun, [facility] [address] [id number] [address] [place] [address], [place] [address] Jun, [facility] [address] [id number] [address] [place] [address], [place] [address] Jun, [facility] [address] [id number] [address] [place] [address], [place] [address] Jun, [facility] [address] [id number] [address] [place] [address], [place] [address] Jun, [facility] [address] [id number] [facility] [place] [address] Jun, [facility] [address] [id number] [address] [place] [address], [place] [address] Jun, [facility] [address] [id number] [address] [place] [address], [place] [address] May, [facility] [address] [id number] [address] [place] [address], [place] [address] May, [facility] [address] [id number] [address] [place] [address], [place] [address] May, [facility] [address] [id number] [address] [place] [address], [place] [address] May, [facility] [address] [id number] [address] [place] [address], [place] [address] May, [facility] [address] [id number] [address] [place] [address], [place] [address] May, [facility] [address] [id number] [address] [place] [address], [place] [address] Apr, [facility] [address] [id number] [address] [place] [address], [place] [address] Apr, [facility] [address] [id number] [address] [place] [address], [place] [address] Apr, [facility] [address] [id number] [address] [place] [address], [place] [address] Apr, [facility] [address] [id number] [address] [place] [address], [place] [address] Mar, [facility] [address] [id number] [address] [place] [address], [place] [address] Mar, [facility] [address] [id number] [address] [place] [address], [place] [address] Mar, [facility] [address] [id number] [address] [place] [address] [address] Mar, [facility] [address] [id number] [address] [place] [address], [place] [address] Mar, [facility] [address] [id number] [address] [place] [address], [place] [address] Mar, [facility] [address] [id number] [address] [place] [address], [place] [address] Feb, [facility] [address] [id number] [address] [place] [address], [place] [address] Feb, [facility] [address] [id number] [address] [place] [address], [place] [address] Feb, [facility] [address] [id number] [address] [place] [address], [place] [address] Feb, [facility] [address] [id number] [address] [place] [address], [place] [address] Feb, [facility] [address] [id number] [address] [place] [address], [place] [address] Feb, [facility] [address] [id number] [address] [place] [address], [place] [address] Feb, [facility] [address] [id number] [address] [place] [address], [place] [address] Feb, [facility] [address] [id number] [address] [place] [address], [place] [address] Feb, [facility] [address] [id number] [address] [place] [address], [place] [address] Feb, [facility] [address] [id number] [address] [place] [address], [place] [address] Feb, [facility] [address] [id number] [address] [place] [address], [place] [address] Feb, [facility] [address] [id number] [address] [place] [address], [place] [address] Jan, [facility] [address] [id number] [address] [place] [address], [place] [address] Jan, [facility] [address] [id number] [address] [place] [address], [place] [address] Jan, [facility] [address] [id number] [address] [place] [address], [place] [address] Jan, [facility] [address] [id number] [address] [place] [address], [place] [address] Jan, [facility] [address] [id number] [address] [place] [address], [place] [address] Jan, [facility] [address] [id number] [address] [place] [address], [place] [address] Jan, [facility] [address] [id number] [address] [place] [address], [place] [address] Jan, [facility] [address] [id number] [address] [place] [address], [place] [address] Jan, [facility] [address] [id number] [address] [place] [address], [place] [address] Jan, [facility] [address] [id number] [address] [place] [address], [place] [address] Dec, [facility] [address] [id number] [address] [place] [address], [place] [address] Dec, [facility] [address] [id number] [address] [place] [address], [place] [address] Nov, 2012 [facility] [address] [id number] [address] [place] [address], [place] [address] 25 Sep, 2012 [facility] [address] [id number] [address] [place] [address], [place] [address] 09 Sep, 2012 [facility] [address] [id number] [address] [place] [address], [place] [address] 05 Sep, 2012 [facility] [address] [id number] [address] [place] [address], [place] [address] Nov, [facility] [address] [id number] [address] [place] [address], [place] [address] Oct, [facility] [address] [id number] [address] [place] [address], [place] [address] Oct, [facility] [address] [id number] [address] [place] [address], [place] [address] Oct, [facility] [address] [id number] [address] [place] [address], [place] [address] Oct, [facility] [address] [id number] [address] [place] [address], [place] [address] Oct, [facility] [address] [id number] [address] [place] [address], [place] [address] Sep, [facility] [address] [id number] [address] [place] [address], [place] [address] Sep, [facility] [address] [id number] [address] [place] [address], [place] [address] Sep, [facility] [address] [id number] [address] [place] [address], [place] [address] Sep, [facility] [address] [id number] [address] [place] [address], [place] [address] Sep, [facility] [address] [id number] [address] [place] [address], [place] [address] Sep, [facility] [address] [id number] [address] [place] [address], [place] [address] Aug, [facility] [address] [id number] [address] [place] [address], [place] [address] Aug, [facility] [address] [id number] [address] [place] [address], [place] [address] July, [facility] [address] [id number] [address] [place] [address], [place] [address] July, [facility] [address] [id number] [address] [place] [address] July, [facility] [address] [id number] [address] [place] [address], [place] [address] Jun, [facility] [address] [id number] [address] [place] [address], [place] [address] Jun, [facility] [address] [id number] [address] [place] [address], [place] [address] Jun, [facility] [address] [id number] [address] [place] [address] Jun, [facility] [address] [id number] [address] [place] [address], [place] [address] May, [facility] [address] [id number] [address] [place] [address], [place] [address] May, [facility] [address] [id number] [address] [place] [address] Apr, [facility] [address] [id number] [address] [place] [address], [place] [address] Apr, [facility] [address] [id number] [address] [place] [address] Apr, [facility] [address] [id number] [address] [place] [address] Apr, [facility] [address] [id number] [address] [place] [address] Apr, [facility] [address] [id number] [address] [place] [address] Apr, [facility] [address] [id number] [address] [place] [id number] Apr, [facility] [address] [id number] [address] [place] [address] Apr, [facility] [address] [id number] [address] [place] [address] Mar, [facility] [address] [id number] [address] [place] [address], [place] [address] Mar, [facility] [address] [id number] [address] [place] [address], [place] [address] Mar, [facility] [address] [id number] [address] [place] [address], [place] [address] Mar, [facility] [address] [id number] [address] [place] [address], [place] [address] Jan, [facility] [address] [id number] [address] [place] [address], [place] [address] Jan, [facility] [address] [id number] [address] [place] [address], [place] [address] Jan, [facility] [address] [id number] [address] [place] [address], [place] [address] Jan, [facility] [address] [id number] [address] [place] [address], [place] [address] Jan, [facility] [address] [id number] [address] [place] [address], [place] [address] Dec, [facility] [address] [id number] [address] [place] [address], [place] [address] Dec, [facility] [address] [id number] [address] [place] [address], [place] [address] Dec, [facility] [address] [id number] [address] [place] [address], [place] [address] Dec, [facility] [address] [id number] [address] [place] [address], [place] [address] Nov, [facility] [address] [id number] [address] [place] [address], [place] [address] Oct, [facility] [address] [id number] [address] [place] [address], [place] [address] Oct, [facility] [address] [id number] [address] [place] [address], [place] [address] Oct, [facility] [address] [id number] [address] [place] [address], [place] [address] Oct, [facility] [address] [id number] [address] [place] [address], [place] [address] Oct, [facility] [address] [id number] [address] [place] [address], [place] [address] Sep, [facility] [address] [id number] [address] [place] [address], [place] [address] Sep, [facility] [address] [id number] [address] [place] [address], [place] [address] Aug, [facility] [address] [id number] [address] [place] [address], [place] [address] Aug, [facility] [address] [id number] [address] [place] [address], [place] [address] Aug, [facility] [address] [id number] [address] [place] [address], [place] [address] Aug, [facility] [address] [id number] [address] [place] [address], [place] [address] July, [facility] [address] [id number] [address] [place] [address], [place] [address] Jun, [facility] [address] [id number] [address] [place] [address], [place] [address] May, [facility] [address] [id number] [address] [place] [address], [place] [address] May, [facility] [address] [id number] [address] [place] [address], [place] [address] May, [facility] [address] [id number] [address] [place] [address], [place] [address] Mar, [facility] [address] [id number] [address] [place] [address], [place] [address] Feb, [facility] [address] [id number] [address] [place] [id number] Feb, [facility] [address] [id number] [address] [place] [id number] Jan, [facility] [address] [id number] [address] [place] [phone] Jan, [facility] [address] [id number] [address] [place] [address] Jan, [facility] [address] [id number] [address] [place] [id number] Jan, [facility] [address] [id number] [address] [place] [address] Jan, [facility] [address] [id number] [address] [place] [address] Dec, [facility] [address] [id number] [address] [place] [phone] Dec, [facility] [address] [id number] [address] [place] [id number] Dec, [facility] [address] [id number] [address] [place] [phone] May, [facility] [address] [id number] [address] [place] [id number] May, [facility] [address] [id number] [address] [place] [id number] 17 Apr, 2009 [facility] [address] [id number] [address] [place] [phone] Jan, [facility] [address] [id number] [address] [place] [id number] Apr, IMMUNIZATIONS No Known Immunizations SOCIAL HISTORY Never Assessed REASON FOR VISIT PLAN OF CARE VITAL SIGNS Height 61 in 2014-04-08 Weight 200.79 lbs 2014-04-08 Temperature 97.7 degrees Fahrenheit 2014-04-08 Heart Rate 80 bpm 2014-04-08 Respiratory Rate 18 2014-04-08 Blood pressure systolic 142 mmHg 2014-04-08 Blood pressure diastolic 92 mmHg 2014-04-08 MEDICATIONS Unknown Medications RESULTS No Results PROCEDURES [...] for cancer Hospitalization History surgeries [facility] Stayed a [facility] 12/2017 [facility]2018 Hospitalization History [facility]- Stroke 2 weeks 06/2018 Hospitalization History [facility] 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
--- OUTSIDE RECORDS SUMMARY | 2019-10-19 08:29 | XMS REPORT ---
Author Author Luanne GLORIA Organization [facility] Address [address] [place] [address] Care Team Providers Care [employer] Machine Name Role Phone CHRISTA GLORIA Unavailable PROBLEMS Type Condition ICD9-CM Code DSW73-XV Code Onset Dates Condition S tatus SNOMED Code Problem Mixed hyperlipidemia E78.2 Active 059083929 Problem Anxiety F41.9 Active 05597089 Problem Other organ or system involvement in systemic julito pus erythematosus M32.19 Active 00993657 Problem Episode of recurrent major d epressive disorder, unspecified depression episode severity F33.9 Active 888883502 Problem Asymptomatic menopausal state Z78.0 Active 89328289 Problem Systemic lupus erythematosus , unspecified SLE type, unspecified organ involvement status M32.9 Active 01174603 Problem Right renal artery stenosis I70.1 Ac tive [id number] Problem Type 2 diabetes mellitus with foot ulcer E11.621 Active 680744134088983 Problem Lumbago with sciatica, right side M54.41 Active 404305141 Problem Non-pressure chronic ulcer o f other part of unspecified foot limited to breakdown of skin L97.501 Active 007119978 Problem Other chronic pain G89.29 Active 8 8075133 Problem Other chronic pain G89.29 Active 8 9236270 Problem Acute right-sided low back pain with right-sided sciatica M54.41 Active 776432127 Problem [facility]FP current use of anticoagulant Z79.01 Active 070030783 Problem 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 96824641 Problem Frequent falls R29.6 Active 22966 2001 Problem HILARIO (obstructive sleep apnea) G47.33 Active 03345984 Problem Cerebrovascular accident (CV A) due to occlusion of other cerebral artery I63.59 Active 701246091 Problem Sciatica M54.30 Active 15044484 Problem Gangrene I96 Active 723771761 Problem Hepatitis C B19.20 Active 89269927 Problem Unsteady gait R26.81 Active 154596 008 Problem Seborrheic keratoses L82.1 Active 016026001 Problem Non-pressure chronic ulcer o f other part of unspecified foot limited to breakdown of skin L97.501 Active 727841667 Problem Urinary frequency R35.0 Active 16 9662138 Problem Necrosis I96 Active 169833200 Problem 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 Active 873406454 Problem Type 2 diabetes mellitus with foot ulcer E11.621 Active 673451557839178 Problem Arterial insufficiency of lower extremity I73.9 Active 576275288446363 Problem Ventricular tachycardia I47.2 Active 04613103 Problem Atherosclerosis of renal artery I70.1 Active 085735051635214 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 Active 863681668 Problem 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 Active 212534958 Problem Chronic anticoagulation Z79.01 Active 705187611 Problem Sialoadenitis, unspecified K11.20 Act gulshan 43352305 Problem Current moderate episode of major depressive disorder without prior episode F32.1 Active 45611486 Problem Body mass index (BMI) 29.0-29.9, adult Z68.29 Active 337520736 Problem Systolic congestive heart failure, unspecified HF chronici ty I50.20 Active 67620247 Problem Hypertension I10 Active 8746534 3 Problem Cardiomyopathy of undetermined type I42.9 Active 82992357 ALLERGIES No Information ENCOUNTERS Encounter Location Date Diagnosis [place] [address] [facility] [id number] [address] [place] [id number] 10 Aug, 2019 [facility] [address] [facility] [id number] [address] [place] [id number] 14 Jun, 2019 Frequent headaches R51 [place] [id number] [facility] [id number] [address] [place] [id number] 03 Jun, 2019 Systolic congestive heart fa ilure, unspecified HF chronicity I50.20 ; Type 2 diabetes mellitus with foot ulcer E11.621 and Coronary artery disease of [place] artery of [place] heart with stable angina pectoris I25.118 [place] [address] [place] [id number] [address] [place] [id number] Jun, Other chronic pain G89.29 [facility] [address] [place] [id number] [address] [place] [id number] 16 May, 2019 [facility] [address] [place] [id number] [address] [place] [id number] May, Other chronic pain G89.29 [facility] [address] [id number] 20 Apr, 2019 Atherosclerosis of renal art taurus I70.1 ; Cardiomyopathy of undetermined type I42.9 and Ventricular tachycardia I47.2 [facility] [address] [address] 14 Apr, 2019 [facility] [address] [place] [id number] [place] [id number] 11 Apr, 2019 Non-intractable vomiting wit h nausea, unspecified vomiting type R11.2 [facility] [id number] [place] [id number] 03 Apr, 2019 Other chronic pain G89.29 [facility] [address] [address] Mar, Other chronic pain G89.29 [facility] [address] [place] [id number] [place] [id number] Feb, Renal insufficiency N28.9 [facility] [address] [place] [id number] Feb, [facility] [address] [place] [id number] [address] [place] [id number] Feb, Frequent headaches R51 and H ypertension I10 [facility] [address] [place] [id number] [address] [place] [id number] 13 Feb, 2019 Other chronic pain G89.29 [facility] [address] [place] [id number] [place] [id number] Jan, Encounter for Medicare annua l wellness [...] episode F32.1 and Encounter for immunization Z23 [place] [id number] [facility] [id number] [address] [place] [id number] 22 Jan, 2019 [place] [address] [facility] [id number] [address] [place] [id number] 13 Jan, 2019 Other chronic pain G89.29 [place] [address] [facility] [id number] [address] [place] [id number] 28 Dec, 2018 [place] [address] [place] [id number] [address] [place] [id number] 15 Dec, 2018 Hypokalemia E87.6 [place] [address] [facility] [id number] [address] [place] [id number] 15 Dec, 2018 Nausea R11.0 [place] [address] [facility] [id number] [address] [place] [id number] 14 Dec, 2018 Other chronic pain G89.29 [place] [address] [facility] [id number] [address] [place] [id number] 10 Dec, 2018 Systolic congestive heart fa ilure, unspecified HF chronicity I50.20 and Ventricular tachycardia I47.2 [place] [address] [facility] [id number] [address] [place] [id number] 08 Dec, 2018 [place] [address] [facility] [id number] [address] [place] [id number] 17 Nov, 2018 Other chronic pain G89.29 [place] [address] [facility] [id number] [address] [place] [id number] 04 Nov, 2018 Nausea with vomiting, unspec ified R11.2 [place] [address] [facility] [id number] [address] [place] [id number] Oct, [facility] [address] [place] [id number] [address] [place] [id number] Oct, Other chronic pain G89.29 [place] [address] [place] [id number] [address] [place] [id number] Oct, [place] [address] [place] [id number] [place] [id number] Oct, Arterial insufficiency of lo wer extremity I73.9 and High risk medication use Z79.899 [facility] [address] [address] Oct, Type 2 diabetes mellitus wit h foot ulcer E11.621 and Non-pressure chronic ulcer of other part of unspecified foot limited to breakdown of skin L97.501 [facility] [address] [place] [id number] [address] [place] [id number] Oct, Gangrene I96 [place] [address] [place] [id number] [address] [place] [id number] Sep, Other chronic pain G89.29 [place] [address] [address] Sep, Status post CVA Z86.73 ; Uns teady gait R26.81 and Frequent falls R29.6 [place] [address] [place] [id number] [address] [place] [id number] Sep, Nausea with vomiting, unspec ified R11.2 [place] [address] [place] [id number] [address] [place] [id number] Sep, Other chronic pain G89.29 [place] [address] [place] [id number] [address] [place] [id number] Aug, [place] [address] [place] [id number] [address] [place] [id number] Aug, Other chronic pain G89.29 [place] [address] [facility] [id number] [address] [place] [id number] July, 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 icoagulant Z79.01 and Cerebrovascular accident (CVA) due to occlusion of other cerebral artery I63.59 [place] [address] [facility] [id number] [address] [place] [id number] July, Renal insufficiency N28.9 [place] [address] [id number] [address] [place] [id number] July, Cerebrovascular accident (CV A) due to occlusion of other cerebral artery I63.59 and Unexplained weight loss R63.4 [place] [address] [facility] [id number] [address] [place] [id number] July, [place] [address] [facility] [id number] [address] [place] [id number] July, [place] [address] [facility] [id number] [address] [place] [id number] July, Unexplained weight loss R63. 4 and [facility]FP current use of anticoagulant Z79.01 [place] [address] [facility] [id number] [address] [place] [id number] July, Other chronic pain G89.29 [place] [address] [facility] [id number] [address] [place] [id number] Jun, Other chronic pain G89.29 [place] [address] [facility] [id number] [address] [place] [id number] May, Unexplained weight loss R63. 4 [place] [address] [facility] [id number] [address] [place] [id number] May, Nausea with vomiting, unspec ified R11.2 [place] [address] [facility] [id number] [address] [place] [id number] May, Non-recurrent acute suppurat gulshan otitis media of right ear without spontaneous rupture of tympanic membrane H66.001 and Chronic anticoagulation Z79.01 [facility] [address] [facility] [id number] [address] [place] [id number] May, Other chronic pain G89.29 [facility] [address] [facility] [id number] [address] [place] [id number] 28 Apr, 2018 Skin tear of right forearm w ithout complication, initial encounter S51.811A ; Skin tear of left forearm without complication, initial encounter S51.812A and Encounter for immunization Z23 [facility] [address] [facility] [id number] [address] [place] [id number] Apr, [place] [address] [facility] [id number] [address] [place] [id number] Apr, Diarrhea, unspecified R19.7 ; Nausea with vomiting, unspecified R11.2 and 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 [place] [address] [place] [id number] [address] [place] [id number] 05 Apr, 2018 Other chronic pain G89.29 [place] [address] [place] [id number] [address] [place] [id number] Mar, Other chronic pain G89.29 [place] [address] [place] [id number] [address] [place] [id number] Mar, Other chronic pain G89.29 [place] [address] [facility] [id number] [address] [place] [id number] Mar, [facility] [address] [place] [id number] [address] [place] [id number] Mar, Other organ or system involv ement in systemic lupus erythematosus M32.19 [place] [address] [place] [id number] [address] [place] [id number] Mar, Non-recurrent acute suppurat gulshan otitis media of right ear without spontaneous rupture of tympanic membrane H66.001 and Chronic anticoagulation Z79.01 [facility] [address] [place] [id number] [address] [place] [id number] Feb, Sialoadenitis, unspecified K 11.20 [place] [address] [facility] [id number] [address] [place] [id number] Feb, Other chronic pain G89.29 [place] [address] [facility] [id number] [address] [place] [id number] Jan, 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 therapy Z79.01 [place] [address] [facility] [id number] [address] [place] [id number] Jan, Other chronic pain G89.29 ; Lumbago with sciatica, right side M54.41 ; Other chronic pain G89.29 ; Tobacco abuse Z72.0 ; Tobacco abuse counseling Z71.6 ; Mixed hyperlipidemia E78.2 and 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 [place] [address] [facility] [id number] [address] [place] [id number] Jan, [place] [address] [facility] [id number] [address] [place] [id number] Dec, [place] [address] [facility] [id number] [address] [place] [id number] Dec, [place] [address] [facility] [id number] [address] [place] [id number] Dec, [place] [address] [facility] [id number] [address] [place] [id number] Dec, Mixed hyperlipidemia E78.2 ; Other chronic [...] involvement in systemic lupus erythematosus M32.19 [facility] [address] [place] [id number] Dec, Right renal artery stenosis I70.1 ; Othe r organ or system involvement in systemic lupus erythematosus M32.19 ; Hepatitis C B19.20 ; Tobacco abuse Z72.0 and Weakness R53.1 [facility] [address] [place] [id number] Dec, [facility] [address] [id number] [address] [place] [id number] Dec, [facility] [address] [id number] [address] [place] [id number] Dec, Other organ or system involv ement in systemic lupus erythematosus M32.19 [facility] [employer] [address] [place] [id number] Dec, Right renal artery stenosis I70.1 ; Inju ry of right kidney, sequela S37.001S ; Tobacco abuse Z72.0 ; Systemic lupus erythematosus, unspecified SLE type, unspecified organ involvement status M32.9 ; Hepatitis C B19.20 and Candidiasis of female genitalia B37.3 [facility] [address] [id number] [address] [place] [id number] Dec, Other organ or system involv ement in systemic lupus erythematosus M32.19 [facility] [address] [id number] [address] [place] [id number] Dec, Other organ or system involv ement in systemic lupus erythematosus M32.19 [facility] [address] [id number] [address] [place] [id number] Dec, [facility] [address] [id number] [address] [place] [id number] Nov, Other organ or system involv ement in systemic lupus erythematosus M32.19 [facility] [address] [id number] [address] [place] [id number] Oct, Other organ or system involv ement in systemic lupus erythematosus M32.19 [facility] [address] [id number] [address] [place] [id number] Sep, Other organ or system involv ement in systemic lupus erythematosus M32.19 [facility] [address] [id number] [address] [place] [id number] Aug, Anxiety F41.9 [facility] [address] [id number] [address] [place] [id number] Aug, Other organ or system involv ement in systemic lupus erythematosus M32.19 [facility] [address] [id number] [address] [place] [id number] July, Medicare annual wellness vis it, initial Z00.00 ; Anxiety F41.9 ; HILARIO (obstructive sleep apnea) G47.33 ; Hepatitis C B19.20 ; Other chronic pain G89.29 ; Asymptomatic menopausal state Z78.0 and Episode of recurrent major depressive disorder, unspecified depression episode severity F33.9 [facility] [address] [facility] [id number] [address] [place] [id number] July, Anxiety F41.9 [facility] [address] [id number] [address] [place] [id number] July, Other organ or system involv ement in systemic lupus erythematosus M32.19 [facility] [address] [id number] [address] [place] [id number] July, [facility] [address] [id number] [address] [place] [id number] Jun, Other organ or system involv ement in systemic lupus erythematosus M32.19 ; BMI 40.0-44.9, adult Z68.41 ; Other chronic pain G89.29 and Controlled substance agreement signed Z79.899 [facility] [address] [facility] [id number] [address] [place] [address] May, Sciatica M54.30 [facility] [address] [id number] [address] [place] [id number] Apr, Sciatica M54.30 [facility] [address] [facility] [id number] [address] [place] [id number] 10 Mar, 2017 Sciatica M54.30 [facility] [address] [id number] [address] [place] [address] Feb, Sciatica M54.30 [facility] [address] [id number] [address] [place] [id number] 15 Jan, 2017 Sciatica M54.30 [facility] [address] [facility] [id number] [address] [place] [id number] 14 Jan, 2017 Sciatica M54.30 [facility] [address] [facility] [id number] [address] [place] [id number] Dec, Sciatica M54.30 [facility] [address] [facility] [id number] [address] [place] [id number] 18 Dec, 2016 Sciatica M54.30 [facility] [address] [facility] [id number] [address] [place] [id number] 29 Nov, 2016 Mixed hyperlipidemia E78.2 ; Chronic seasonal allergic rhinitis due to other allergen J30.2 and Family history of early CAD Z82.49 [place] [address] [facility] [id number] [address] [place] [id number] Nov, Sciatica M54.30 [facility] [address] [facility] [id number] [address] [place] [id number] 18 Nov, 2016 Mixed hyperlipidemia E78.2 ; Chronic seasonal allergic rhinitis due to other allergen J30.2 ; Family history of early CAD Z82.49 ; Other chronic pain G89.29 and Pain in left shoulder M25.512 [facility] [address] [facility] [id number] [address] [place] [id number] 11 Nov, 2016 Acute pain of left shoulder M25.512 [facility] [address] [facility] [id number] [address] [place] [id number] Oct, Sciatica M54.30 [facility] [address] [facility] [id number] [address] [place] [id number] Oct, [facility] [address] [facility] [id number] [address] [place] [id number] Sep, Sciatica M54.30 [facility] [address] [facility] [id number] [address] [place] [id number] Sep, Acute pain of left shoulder M25.512 [facility] [address] [facility] [id number] [address] [place] [id number] Sep, Acute pain of left shoulder M25.512 [facility] [address] [facility] [id number] [address] [place] [address] Aug, Sciatica M54.30 [facility] [address] [facility] [id number] [address] [place] [id number] Aug, Sciatica M54.30 ; Tobacco ab use Z72.0 and Tobacco abuse counseling Z71.6 [place] [address] [facility] [id number] [address] [place] [id number] Aug, Acute pain of left shoulder M25.512 [facility] [address] [facility] [id number] [address] [place] [id number] Aug, Contusion of right shoulder, initial encounter S40.011A ; Acute pain of left shoulder M25.512 and Shortness of breath R06.02 [facility] [address] [facility] [id number] [address] [place] [id number] Aug, Lumbago with sciatica, right side M54.41 [facility] [address] [facility] [id number] [address] [place] [id number] July, [facility] [address] [facility] [id number] [address] [place] [id number] July, Lumbago with sciatica, right side M54.41 [facility] [address] [facility] [id number] [address] [place] [id number] Jun, Lumbago with sciatica, right side M54.41 [facility] [address] [id number] [address] [place] [id number] May, Lumbago with sciatica, right side M54.41 [facility] [address] [facility] [id number] [address] [place] [id number] May, Herpes zoster without compli cation B02.9 [facility] [address] [facility] [id number] [address] [place] [id number] May, Back pain M54.9 and Acute ri ght-sided low back pain with right-sided sciatica M54.41 [facility] [address] [id number] [address] [place] [id number] Apr, [facility] [address] [facility] [id number] [address] [place] [id number] Apr, Lumbago with sciatica, right side M54.41 and Other chronic pain G89.29 [facility] [address] [facility] [id number] [address] [place] [id number] Apr, [facility] [address] [facility] [id number] [address] [place] [id number] Mar, [facility] [address] [facility] [id number] [address] [place] [id number] Mar, [facility] [address] [facility] [id number] [address] [place] [id number] Feb, [facility] [address] [facility] [id number] [address] [place] [id number] Jan, Urinary frequency R35.0 [facility] [address] [facility] [id number] [address] [place] [id number] Jan, [facility] [address] [facility] [id number] [address] [place] [id number] Dec, [facility] [address] [facility] [id number] [address] [place] [id number] Oct, [facility] [address] [id number] [address] [place] [id number] Sep, [facility] [address] [id number] [address] [place] [id number] Sep, Foreign body in left foot, i nitial encounter S90.852A [facility] [address] [id number] [address] [place] [id number] Aug, [facility] [address] [id number] [address] [place] [id number] July, Sciatica M54.30 [facility] [address] [id number] [address] [place] [id number] Jun, [facility] [address] [id number] [address] [place] [id number] May, Osteoarthritis M19.90 [facility] [address] [id number] [address] [place] [id number] May, [facility] [address] [id number] [address] [place] [id number] May, Pain in right hip M25.551 [facility] [address] [id number] [address] [place] [id number] May, Tinea corporis B35.4 [facility] [address] [id number] [address] [place] [id number] Apr, Pain in right hip M25.551 [facility] [address] [id number] [address] [place] [id number] Mar, Pain in right hip M25.551 [facility] [address] [facility] [id number] [address] [place] [address] Mar, [facility] [address] [facility] [id number] [address] [place] [id number] Feb, Pain in right hip M25.551 [facility] [address] [facility] [id number] [address] [place] [id number] Jan, Acute bronchitis, unspecifie d organism J20.9 and Cough R05 [facility] [address] [id number] [address] [place] [id number] Jan, Pain in right hip M25.551 [facility] [address] [id number] [address] [place] [address] Dec, Pain in right hip M25.551 [facility] [address] [id number] [address] [place] [address] Nov, Acute bronchitis 466.0 [facility] [address] [id number] [address] [place] [id number] Nov, [facility] [address] [id number] [address] [place] [id number] Oct, [facility] [address] [id number] [address] [place] [id number] Sep, [facility] [address] [id number] [address] [place] [id number] Aug, [facility] [address] [id number] [address] [place] [id number] July, [facility] [address] [id number] [address] [place] [id number] Jun, [facility] [address] [id number] [address] [place] [address] Jun, [facility] [address] [id number] [address] [place] [id number] May, [facility] [address] [id number] [address] [place] [id number] May, [facility] [address] [id number] [address] [place] [id number] Apr, [facility] [address] [id number] [address] [place] [id number] Apr, [facility] [address] [id number] [address] [place] [address], [place] [address] 11 Apr, 2014 [facility] [address] [id number] [address] [place] [address], [place] [address] Apr, 2014 [facility] [address] [id number] [address] [place] [address], [place] [address] Apr, 2014 [facility] [address] [id number] [address] [place] [address], [place] [address] Apr, 2014 [facility] [address] [id number] [address] [place] [address], [place] [address] Mar, [facility] [address] [id number] [address] [place] [address], [place] [address] Mar, [facility] [address] [id number] [address] [place] [address], [place] [address] Feb, [facility] [address] [id number] [address] [place] [address], [place] [address] Feb, [facility] [address] [id number] [address] [place] [address], [place] [address] Feb, [facility] [address] [id number] [address] [place] [address], [place] [address] Dec, [facility] [address] [id number] [address] [place] [address], [place] [address] Dec, [facility] [address] [id number] [address] [place] [address], [place] [address] Nov, [facility] [address] [id number] [address] [place] [address], [place] [address] Nov, [facility] [address] [id number] [address] [place] [address], [place] [address] 02 Nov, 2013 [facility] [address] [id number] [address] [place] [address], [place] [address] 02 Nov, 2013 [facility] [address] [id number] [address] [place] [address], [place] [address] Sep, [facility] [address] [id number] [facility] [place] [place] [address] Sep, [facility] [address] [id number] [address] [place] [address], [place] [address] Sep, [facility] [address] [id number] [address] [place] [address], [place] [address] Sep, [facility] [address] [id number] [address] [place] [address], [place] [address] Aug, [facility] [address] [id number] [address] [place] [address], [place] [address] Aug, [facility] [address] [id number] [address] [place] [address], [place] [address] Aug, [facility] [address] [id number] [address] [place] [address], [place] [address] Aug, [facility] [address] [id number] [address] [place] [address], [place] [address] July, [facility] [address] [id number] [address] [place] [address], [place] [address] July, [facility] [address] [id number] [address] [place] [address], [place] [address] Jun, [facility] [address] [id number] [address] [place] [address], [place] [address] Jun, [facility] [address] [id number] [address] [place] [address], [place] [address] Jun, [facility] [address] [id number] [address] [place] [address], [place] [address] Jun, [facility] [address] [id number] [address] [place] [address], [place] [address] Jun, [facility] [address] [id number] [address] [place] [address], [place] [address] Jun, [facility] [address] [id number] [facility] [place] [address] Jun, [facility] [address] [id number] [address] [place] [address], [place] [address] Jun, [facility] [address] [id number] [address] [place] [address], [place] [address] May, [facility] [address] [id number] [address] [place] [address], [place] [address] May, [facility] [address] [id number] [address] [place] [address], [place] [address] May, [facility] [address] [id number] [address] [place] [address], [place] [address] May, [facility] [address] [id number] [address] [place] [address], [place] [address] May, [facility] [address] [id number] [address] [place] [address], [place] [address] May, [facility] [address] [id number] [address] [place] [address], [place] [address] Apr, [facility] [address] [id number] [address] [place] [address], [place] [address] Apr, [facility] [address] [id number] [address] [place] [address], [place] [address] Apr, [facility] [address] [id number] [address] [place] [address], [place] [address] Apr, [facility] [address] [id number] [address] [place] [address], [place] [address] Mar, [facility] [address] [id number] [address] [place] [address], [place] [address] Mar, [facility] [address] [id number] [address] [place] [address], [place] [address] Mar, [facility] [address] [id number] [address] [place] [address] [address] Mar, [facility] [address] [id number] [address] [place] [address], [place] [address] Mar, [facility] [address] [id number] [address] [place] [address], [place] [address] Mar, [facility] [address] [id number] [address] [place] [address], [place] [address] Feb, [facility] [address] [id number] [address] [place] [address], [place] [address] Feb, [facility] [address] [id number] [address] [place] [address], [place] [address] Feb, [facility] [address] [id number] [address] [place] [address], [place] [address] Feb, [facility] [address] [id number] [address] [place] [address], [place] [address] Feb, [facility] [address] [id number] [address] [place] [address], [place] [address] Feb, [facility] [address] [id number] [address] [place] [address], [place] [address] Feb, [facility] [address] [id number] [address] [place] [address], [place] [address] Feb, [facility] [address] [id number] [address] [place] [address], [place] [address] Feb, [facility] [address] [id number] [address] [place] [address], [place] [address] Feb, [facility] [address] [id number] [address] [place] [address], [place] [address] Feb, [facility] [address] [id number] [address] [place] [address], [place] [address] Feb, [facility] [address] [id number] [address] [place] [address], [place] [address] Jan, [facility] [address] [id number] [address] [place] [address], [place] [address] Jan, [facility] [address] [id number] [address] [place] [address], [place] [address] Jan, [facility] [address] [id number] [address] [place] [address], [place] [address] Jan, [facility] [address] [id number] [address] [place] [address], [place] [address] Jan, [facility] [address] [id number] [address] [place] [address], [place] [address] Jan, [facility] [address] [id number] [address] [place] [address], [place] [address] Jan, [facility] [address] [id number] [address] [place] [address], [place] [address] Jan, [facility] [address] [id number] [address] [place] [address], [place] [address] Jan, [facility] [address] [id number] [address] [place] [address], [place] [address] Jan, [facility] [address] [id number] [address] [place] [address], [place] [address] Dec, [facility] [address] [id number] [address] [place] [address], [place] [address] Dec, [facility] [address] [id number] [address] [place] [address], [place] [address] Nov, 2012 [facility] [address] [id number] [address] [place] [address], [place] [address] 25 Sep, 2012 [facility] [address] [id number] [address] [place] [address], [place] [address] 09 Sep, 2012 [facility] [address] [id number] [address] [place] [address], [place] [address] 05 Sep, 2012 [facility] [address] [id number] [address] [place] [address], [place] [address] Nov, [facility] [address] [id number] [address] [place] [address], [place] [address] Oct, [facility] [address] [id number] [address] [place] [address], [place] [address] Oct, [facility] [address] [id number] [address] [place] [address], [place] [address] Oct, [facility] [address] [id number] [address] [place] [address], [place] [address] Oct, [facility] [address] [id number] [address] [place] [address], [place] [address] Oct, [facility] [address] [id number] [address] [place] [address], [place] [address] Sep, [facility] [address] [id number] [address] [place] [address], [place] [address] Sep, [facility] [address] [id number] [address] [place] [address], [place] [address] Sep, [facility] [address] [id number] [address] [place] [address], [place] [address] Sep, [facility] [address] [id number] [address] [place] [address], [place] [address] Sep, [facility] [address] [id number] [address] [place] [address], [place] [address] Sep, [facility] [address] [id number] [address] [place] [address], [place] [address] Aug, [facility] [address] [id number] [address] [place] [address], [place] [address] Aug, [facility] [address] [id number] [address] [place] [address], [place] [address] July, [facility] [address] [id number] [address] [place] [address], [place] [address] July, [facility] [address] [id number] [address] [place] [address] July, [facility] [address] [id number] [address] [place] [address], [place] [address] Jun, [facility] [address] [id number] [address] [place] [address], [place] [address] Jun, [facility] [address] [id number] [address] [place] [address], [place] [address] Jun, [facility] [address] [id number] [address] [place] [address] Jun, [facility] [address] [id number] [address] [place] [address], [place] [address] May, [facility] [address] [id number] [address] [place] [address], [place] [address] May, [facility] [address] [id number] [address] [place] [address] Apr, [facility] [address] [id number] [address] [place] [address], [place] [address] Apr, [facility] [address] [id number] [address] [place] [address] Apr, [facility] [address] [id number] [address] [place] [address] Apr, [facility] [address] [id number] [address] [place] [address] Apr, [facility] [address] [id number] [address] [place] [address] Apr, [facility] [address] [id number] [address] [place] [id number] Apr, [facility] [address] [id number] [address] [place] [address] Apr, [facility] [address] [id number] [address] [place] [address] Mar, [facility] [address] [id number] [address] [place] [address], [place] [address] Mar, [facility] [address] [id number] [address] [place] [address], [place] [address] Mar, [facility] [address] [id number] [address] [place] [address], [place] [address] Mar, [facility] [address] [id number] [address] [place] [address], [place] [address] Jan, [facility] [address] [id number] [address] [place] [address], [place] [address] Jan, [facility] [address] [id number] [address] [place] [address], [place] [address] Jan, [facility] [address] [id number] [address] [place] [address], [place] [address] Jan, [facility] [address] [id number] [address] [place] [address], [place] [address] Jan, [facility] [address] [id number] [address] [place] [address], [place] [address] Dec, [facility] [address] [id number] [address] [place] [address], [place] [address] Dec, [facility] [address] [id number] [address] [place] [address], [place] [address] Dec, [facility] [address] [id number] [address] [place] [address], [place] [address] Dec, [facility] [address] [id number] [address] [place] [address], [place] [address] Nov, [facility] [address] [id number] [address] [place] [address], [place] [address] Oct, [facility] [address] [id number] [address] [place] [address], [place] [address] Oct, [facility] [address] [id number] [address] [place] [address], [place] [address] Oct, [facility] [address] [id number] [address] [place] [address], [place] [address] Oct, [facility] [address] [id number] [address] [place] [address], [place] [address] Oct, [facility] [address] [id number] [address] [place] [address], [place] [address] Sep, [facility] [address] [id number] [address] [place] [address], [place] [address] Sep, [facility] [address] [id number] [address] [place] [address], [place] [address] Aug, [facility] [address] [id number] [address] [place] [address], [place] [address] Aug, [facility] [address] [id number] [address] [place] [address], [place] [address] Aug, [facility] [address] [id number] [address] [place] [address], [place] [address] Aug, [facility] [address] [id number] [address] [place] [address], [place] [address] July, [facility] [address] [id number] [address] [place] [address], [place] [address] Jun, [facility] [address] [id number] [address] [place] [address], [place] [address] May, [facility] [address] [id number] [address] [place] [address], [place] [address] May, [facility] [address] [id number] [address] [place] [address], [place] [address] May, [facility] [address] [id number] [address] [place] [address], [place] [address] Mar, [facility] [address] [id number] [address] [place] [address], [place] [phone] Feb, [facility] [address] [id number] [address] [place] [phone] Feb, [facility] [address] [id number] [address] [place] [id number] Jan, [facility] [address] [id number] [address] [place] [phone] Jan, [facility] [address] [id number] [address] [place] [phone] Jan, [facility] [address] [id number] [address] [place] [phone] Jan, [facility] [address] [id number] [address] [place] [phone] Jan, [facility] [address] [id number] [address] [place] [id number] Dec, [facility] [address] [id number] [address] [place] [phone] Dec, [facility] [address] [id number] [address] [place] [id number] Dec, [facility] [address] [id number] [address] [place] [phone] May, [facility] [address] [id number] [address] [place] [id number] May, [facility] [address] [id number] [address] [place] [id number] 17 Apr, 2009 [facility] [address] [id number] [address] [place] [phone] Jan, [facility] [address] [id number] [address] [place] [id number] 11 Apr, 2008 IMMUNIZATIONS No Known Immunizations SOCIAL HISTORY Never Assessed REASON FOR VISIT PLAN OF CARE VITAL SIGNS Height 63 in 2013-12-08 Weight 205 lbs 2013-12-08 Temperature 98 degrees Fahrenheit 2013-12-08 Heart Rate 110 bpm 2013-12-08 Respiratory Rate 18 2013-12-08 Blood pressure systolic 130 mmHg 2013-12-08 Blood pressure diastolic 88 mmHg 2013-12-08 MEDICATIONS Unknown Medications RESULTS No Results PROCEDURES [...] for cancer Hospitalization History surgeries Hospitalization History [facility] ER, heart- kidney- Stayed a [facility] ICU 12/2017 [facility] 03[facility]2018 Hospitalization History [facility] Stroke 2 weeks 06/2018 Hospitalization History ER 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
--- OUTSIDE RECORDS SUMMARY | 2019-10-19 08:29 | XMS REPORT ---
Author Author Luanne Carvalho Doctor Organization [facility] Address Unknown Phone Unavailable Care Team Providers Care Nurses Supervisor Name Role Phone Migration, Doctor Unavailable Unavailable PROBLEMS Type Condition ICD9-CM Code HDO04-HB Code Onset Dates Condition S tatus SNOMED Code Problem Mixed hyperlipidemia E78.2 Active 094402721 Problem Anxiety F41.9 Active 34327222 Problem Other organ or system involvement in systemic julito pus erythematosus M32.19 Active 27367839 Problem Episode of recurrent major d epressive disorder, unspecified depression episode severity F33.9 Active 310351335 Problem Asymptomatic menopausal state Z78.0 Active 89273835 Problem Systemic lupus erythematosus , unspecified SLE type, unspecified organ involvement status M32.9 Active 34094510 Problem Right renal artery stenosis I70.1 Ac tive [id number] Problem Type 2 diabetes mellitus with foot ulcer E11.621 Active 707159183840116 Problem Lumbago with sciatica, right side M54.41 Active 035430495 Problem Non-pressure chronic ulcer o f other part of unspecified foot limited to breakdown of skin L97.501 Active 812823330 Problem Other chronic pain G89.29 Active 8 5559364 Problem Other chronic pain G89.29 Active 8 2164453 Problem Acute right-sided low back pain with right-sided sciatica M54.41 Active 332686476 Problem 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 Active 280194441 Problem 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 61335560 Problem Frequent falls R29.6 Active 43948 2001 Problem HILARIO (obstructive sleep apnea) G47.33 Active 51563182 Problem Cerebrovascular accident (CV A) due to occlusion of other cerebral artery I63.59 Active 711931770 Problem Sciatica M54.30 Active 11379739 Problem Gangrene I96 Active 640434969 Problem Hepatitis C B19.20 Active 66062145 Problem Unsteady gait R26.81 Active 361278 008 Problem Seborrheic keratoses L82.1 Active 348664276 Problem Non-pressure chronic ulcer o f other part of unspecified foot limited to breakdown of skin L97.501 Active 156040322 Problem Urinary frequency R35.0 Active 16 2646190 Problem Necrosis I96 Active 397945849 Problem 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 Active 166043081 Problem Type 2 diabetes mellitus with foot ulcer E11.621 Active 723209646391166 Problem Arterial insufficiency of lower extremity I73.9 Active 370335659088232 Problem Ventricular tachycardia I47.2 Active 87552733 Problem Atherosclerosis of renal artery I70.1 Active 290451660478285 Problem 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 Z79 .01 Active 206140776 Problem 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 Active 161212905 Problem Chronic anticoagulation Z79.01 Active 255394988 Problem Sialoadenitis, unspecified K11.20 Act gulshan 71915102 Problem Current moderate episode of major depressive disorder without prior episode F32.1 Active 26464467 Problem Body mass index (BMI) 29.0-29.9, adult Z68.29 Active 987135047 Problem Systolic congestive heart failure, unspecified HF chronici ty I50.20 Active 84563599 Problem Hypertension I10 Active 2596421 3 Problem Cardiomyopathy of undetermined type I42.9 Active 31429621 ALLERGIES No Information ENCOUNTERS Encounter Location Date Diagnosis [place] [address] [address] [facility] [id number] [address] [place] [phone] Aug, [place] [address] [address] [facility] [id number] [address] [place] [id number] 03 Jun, 2019 Systolic congestive heart fa ilure, unspecified HF chronicity I50.20 ; Type 2 diabetes mellitus with foot ulcer E11.621 and Coronary artery disease of [place] artery of [place] heart with stable angina pectoris I25.118 [place] [address] [address] [facility] [id number] [address] [place] [phone] Jun, Other chronic pain G89.29 [place] [facility] [id number] [address] [place] [id number] 16 May, 2019 [place] [address] [address] May, Other chronic pain G89.29 [facility] [address] [address] 20 Apr, 2019 Atherosclerosis of renal art taurus I70.1 ; Cardiomyopathy of undetermined type I42.9 and Ventricular tachycardia I47.2 [place] [address] [id number] 14 Apr, 2019 [facility] [address] [id number] 11 Apr, 2019 Non-intractable vomiting wit h nausea, unspecified vomiting type R11.2 [place] [address] [address] 03 Apr, 2019 Other chronic pain G89.29 [place] [address] [address] Mar, Other chronic pain G89.29 [place] [address] [address] Feb, Renal insufficiency N28.9 [place] [address] [address] Feb, [place] [address] [address] Feb, Frequent headaches R51 and H ypertension I10 [place] [address] [address] Feb, Other chronic pain G89.29 [place] [address] [address] Jan, Encounter for Medicare annua l wellness [...] episode F32.1 and Encounter for immunization Z23 [facility] [address] [facility] [id number] [address] [place] [id number] 22 Jan, 2019 [facility] [address] [facility] [id number] [address] [place] [id number] Jan, Other chronic pain G89.29 [facility] [address] [facility] [id number] [address] [place] [id number] 28 Dec, 2018 [facility] [address] [facility] [id number] [place] [phone] Dec, Hypokalemia E87.6 [facility] [address] [facility] [id number] [address] [place] [id number] 15 Dec, [address] [facility] [address] [facility] [id number] [place] [phone] 14 Dec, 2018 Other chronic pain G89.29 [facility] [address] [facility] [id number] [address] [place] [id number] 10 Dec, 2018 Systolic congestive heart fa ilure, unspecified HF chronicity I50.20 and Ventricular tachycardia I47.2 [facility] [address] [facility] [id number] [address] [place] [phone] Dec, [facility] [address] [facility] [id number] [address] [place] [phone] Nov, Other chronic pain G89.29 [facility] [address] [facility] [id number] [address] [place] [id number] 04 Nov, 2018 Nausea with vomiting, unspec ified R11.2 [facility] [address] [facility] [id number] [address] [place] [phone] Oct, [facility] [address] [place] [id number] [address] [place] [id number] Oct, Other chronic pain G89.29 [facility] [address] [facility] [id number] [address] [place] [phone] Oct, [place] [address] [address] [facility] [id number] [address] [place] [id number] Oct, Arterial insufficiency of lo wer extremity I73.9 and High risk medication use Z79.899 [facility] [address] [place] [id number] [address] [place] [id number] Oct, Type 2 diabetes mellitus wit h foot ulcer E11.621 and Non-pressure chronic ulcer of other part of unspecified foot limited to breakdown of skin L97.501 [facility] [address] [facility] [id number] [address] [place] [phone] Oct, Gangrene I96 [place] [address] [address] [place] [id number] [address] [place] [phone] Sep, Other chronic pain G89.29 [place] [address] [address] [place] [id number] [address] [place] [id number] Sep, Status post CVA Z86.73 ; Uns teady gait R26.81 and Frequent falls R29.6 [place] [address] [address] [place] [id number] [address] [place] [phone] Sep, Nausea with vomiting, unspec ified R11.2 [place] [address] [address] [place] [id number] [address] [place] [id number] Sep, Other chronic pain G89.29 [place] [address] [address] [facility] [id number] [address] [place] [id number] Aug, [place] [address] [address] [place] [id number] [address] [place] [phone] Aug, Other chronic pain G89.29 [place] [address] [address] [facility] [id number] [address] [place] [phone] July, [facility] current use of ant icoagulant Z79.01 and Cerebrovascular accident (CVA) due to occlusion of other cerebral artery I63.59 [facility] [address] [id number] [address] [place] [address] July, Renal insufficiency N28.9 [facility] [address] [id number] [address] [place] [phone] July, Cerebrovascular accident (CV A) due to occlusion of other cerebral artery I63.59 and Unexplained weight loss R63.4 [facility] [address] [id number] [address] [place] [phone] July, [facility] [address] [id number] [address] [place] [phone] July, [facility] [address] [facility] [id number] [address] [place] [phone] July, Unexplained weight loss R63. 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 [address] [id number] [address] [place] [id number] Jun, Other chronic pain G89.29 [facility] [address] [id number] [address] [place] [id number] May, Unexplained weight loss R63. 4 [facility] [address] [facility] [id number] [address] [place] [id number] May, Nausea with vomiting, unspec ified R11.2 [facility] [address] [id number] [address] [place] [id number] May, Non-recurrent acute suppurat gulshan otitis media of right ear without spontaneous rupture of tympanic membrane H66.001 and Chronic anticoagulation Z79.01 [facility] [address] [id number] [address] [place] [id number] May, Other chronic pain G89.29 [facility] [address] [id number] [address] [place] [id number] 28 Apr, 2018 Skin tear of right forearm w ithout complication, initial encounter S51.811A ; Skin tear of left forearm without complication, initial encounter S51.812A and Encounter for immunization Z23 [facility] [address] [facility] [id number] [address] [place] [id number] 20 Apr, 2018 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 [address] [place] [id number] [address] [place] [id number] Mar, Other chronic pain G89.29 [facility] [address] [place] [id number] [address] [place] [id number] 10 Mar, 2018 Other chronic pain G89.29 [place] [address] [address] [place] [id number] [address] [place] [id number] Mar, [facility] [address] [place] [id number] [address] [place] [phone] Mar, Other organ or system involv ement in systemic lupus erythematosus M32.19 [facility] [address] [place] [id number] [address] [place] [id number] Mar, Non-recurrent acute suppurat gulshan otitis media of right ear without spontaneous rupture of tympanic membrane H66.001 and Chronic anticoagulation Z79.01 [facility] [address] [facility] [id number] [address] [place] [phone] Feb, Sialoadenitis, unspecified K 11.20 [facility] [address] [place] [id number] [address] [place] [id number] Feb, Other chronic pain G89.29 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 [address] [facility] [id number] [address] [place] [id number] Jan, Other chronic pain G89.29 ; Lumbago with sciatica, right side M54.41 ; Other chronic pain G89.29 ; Tobacco abuse Z72.0 ; Tobacco abuse counseling Z71.6 ; Mixed hyperlipidemia E78.2 and [facility] 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 Z79.01 [facility] [address] [facility] [id number] [address] [place] [phone] Jan, [facility] [address] [facility] [id number] [address] [place] [id number] Dec, [place] [address] [address] [facility] [id number] [address] [place] [id number] Dec, [facility] [address] [facility] [id number] [address] [place] [id number] Dec, [place] [address] [address] [facility] [id number] [address] [place] [id number] Dec, Mixed hyperlipidemia E78.2 ; Other chronic [...] involvement in systemic lupus erythematosus M32.19 [facility] [address] [place] [id number] Dec, Right renal artery stenosis I70.1 ; Othe r organ or system involvement in systemic lupus erythematosus M32.19 ; Hepatitis C B19.20 ; Tobacco abuse Z72.0 and Weakness R53.1 [facility] [address] [place] [id number] Dec, [facility] [address] [id number] [address] [place] [phone] Dec, [facility] [address] [id number] [address] [place] [id number] Dec, Other organ or system involv ement in systemic lupus erythematosus M32.19 [facility] [address] [place] [id number] Dec, Right renal artery stenosis I70.1 ; Inju ry of right kidney, sequela S37.001S ; Tobacco abuse Z72.0 ; Systemic lupus erythematosus, unspecified SLE type, unspecified organ involvement status M32.9 ; Hepatitis C B19.20 and Candidiasis of female genitalia B37.3 [facility] [address] [id number] [address] [place] [id number] Dec, Other organ or system involv ement in systemic lupus erythematosus M32.19 [facility] [address] [id number] [address] [place] [phone] Dec, Other organ or system involv ement in systemic lupus erythematosus M32.19 [facility] [address] [id number] [address] [place] [phone] Dec, [facility] [address] [id number] [address] [place] [phone] Nov, Other organ or system involv ement in systemic lupus erythematosus M32.19 [facility] [address] [id number] [address] [place] [id number] Oct, Other organ or system involv ement in systemic lupus erythematosus M32.19 [facility] [address] [id number] [address] [place] [id number] Sep, Other organ or system involv ement in systemic lupus erythematosus M32.19 [facility] [address] [id number] [address] [place] [id number] Aug, Anxiety F41.9 [facility] [address] [facility] [id number] [address] [place] [id number] Aug, Other organ or system involv ement in systemic lupus erythematosus M32.19 [facility] [address] [facility] [id number] [address] [place] [id number] July, Medicare annual wellness vis it, initial Z00.00 ; Anxiety F41.9 ; HILARIO (obstructive sleep apnea) G47.33 ; Hepatitis C B19.20 ; Other chronic pain G89.29 ; Asymptomatic menopausal state Z78.0 and Episode of recurrent major depressive disorder, unspecified depression episode severity F33.9 [facility] [address] [facility] [id number] [address] [place] [phone] July, Anxiety F41.9 [facility] [address] [facility] [id number] [address] [place] [phone] July, Other organ or system involv ement in systemic lupus erythematosus M32.19 [facility] [address] [facility] [id number] [address] [place] [phone] July, [place] [address] [facility] [id number] [address] [place] [id number] Jun, Other organ or system involv ement in systemic lupus erythematosus M32.19 ; BMI 40.0-44.9, adult Z68.41 ; Other chronic pain G89.29 and Controlled substance agreement signed Z79.899 [facility] [address] [facility] [id number] [address] [place] [id number] May, Sciatica M54.30 [facility] [address] [facility] [id number] [address] [place] [id number] Apr, Sciatica M54.30 [facility] [address] [facility] [id number] [address] [place] [phone] Mar, Sciatica M54.30 [facility] [address] [facility] [id number] [address] [place] [id number] Feb, Sciatica M54.30 [facility] [address] [id number] [address] [place] [address] Jan, Sciatica M54.30 [facility] [address] [id number] [address] [place] [address] Jan, Sciatica M54.30 [facility] [address] [id number] [address] [place] [phone] Dec, Sciatica M54.30 [facility] [address] [id number] [address] [place] [id number] 18 Dec, 2016 Sciatica M54.30 [place] [address] [address] [facility] [id number] [address] [place] [id number] 29 Nov, 2016 Mixed hyperlipidemia E78.2 ; Chronic seasonal allergic rhinitis due to other allergen J30.2 and Family history of early CAD Z82.49 [place] [address] [address] [facility] [id number] [address] [place] [id number] Nov, Sciatica M54.30 [facility] [address] [id number] [address] [place] [address] Nov, Mixed hyperlipidemia E78.2 ; Chronic seasonal allergic rhinitis due to other allergen J30.2 ; Family history of early CAD Z82.49 ; Other chronic pain G89.29 and Pain in left shoulder M25.512 [place] [address] [address] [facility] [id number] [address] [place] [address] Nov, Acute pain of left shoulder M25.512 [place] [address] [id number] [address] [place] [address] Oct, Sciatica M54.30 [facility] [address] [facility] [id number] [address] [place] [phone] Oct, [facility] [address] [id number] [address] [place] [phone] Sep, Sciatica M54.30 [facility] [address] [facility] [id number] [address] [place] [phone] Sep, Acute pain of left shoulder M25.512 [place] [address] [address] [facility] [id number] [address] [place] [address] Sep, Acute pain of left shoulder M25.512 [place] [address] [address] [facility] [id number] [address] [place] [phone] Aug, Sciatica M54.30 [place] [address] [address] [facility] [id number] [address] [place] [id number] Aug, Sciatica M54.30 ; Tobacco ab use Z72.0 and Tobacco abuse counseling Z71.6 [place] [address] [address] [facility] [id number] [address] [place] [phone] Aug, Acute pain of left shoulder M25.512 [facility] [address] [place] [id number] [address] [place] [address] Aug, Contusion of right shoulder, initial encounter S40.011A ; Acute pain of left shoulder M25.512 and Shortness of breath R06.02 [place] [address] [address] [facility] [id number] [address] [place] [id number] Aug, Lumbago with sciatica, right side M54.41 [place] [address] [address] [facility] [id number] [address] [place] [id number] July, [place] [address] [address] [facility] [id number] [address] [place] [phone] July, Lumbago with sciatica, right side M54.41 [place] [address] [address] [facility] [id number] [address] [place] [phone] Jun, Lumbago with sciatica, right side M54.41 [place] [address] [address] [facility] [id number] [address] [place] [phone] May, Lumbago with sciatica, right side M54.41 [facility] [address] [facility] [id number] [address] [place] [phone] May, Herpes zoster without compli cation B02.9 [facility] [address] [facility] [id number] [address] [place] [phone] May, Back pain M54.9 and Acute ri ght-sided low back pain with right-sided sciatica M54.41 [facility] [address] [place] [id number] [address] [place] [phone] Apr, [facility] [address] [place] [id number] [place] [phone] Apr, Lumbago with sciatica, right side M54.41 and Other chronic pain G89.29 [place] [address] [address] [place] [id number] [place] [phone] Apr, [facility] [address] [place] [id number] [place] [phone] Mar, [facility] [address] [place] [id number] [place] [phone] Mar, [facility] [address] [place] [id number] [address] [place] [id number] Feb, [facility] [address] [id number] [address] [place] [id number] Jan, Urinary frequency R35.0 [facility] [address] [id number] [address] [place] [id number] Jan, [facility] [address] [id number] [address] [place] [id number] Dec, [facility] [address] [id number] [address] [place] [id number] Oct, [facility] [address] [id number] [address] [place] [id number] Sep, [facility] [address] [id number] [address] [place] [id number] Sep, Foreign body in left foot, i nitial encounter S90.852A [facility] [address] [id number] [address] [place] [id number] [address], [address] [facility] [address] [facility] [id number] [address] [place] [id number] July, Sciatica M54.30 [facility] [address] [facility] [id number] [address] [place] [id number] Jun, [facility] [address] [facility] [id number] [address] [place] [id number] May, Osteoarthritis M19.90 [facility] [address] [id number] [address] [place] [id number] May, [facility] [address] [facility] [id number] [address] [place] [id number] May, Pain in right hip M25.551 [facility] [address] [facility] [id number] [address] [place] [phone] May, Tinea corporis B35.4 [facility] [address] [facility] [id number] [address] [place] [id number] Apr, Pain in right hip M25.551 [facility] [address] [facility] [id number] [address] [place] [id number] Mar, Pain in right hip M25.551 [facility] [address] [facility] [id number] [address] [place] [id number] Mar, [facility] [address] [facility] [id number] [address] [place] [id number] Feb, Pain in right hip M25.551 [facility] [address] [facility] [id number] [address] [place] [id number] 13 Jan, 2015 Acute bronchitis, unspecifie d organism J20.[address] [facility] [address] [facility] [id number] [address] [place] [id number] Jan, Pain in right hip M25.551 [facility] [address] [id number] [address] [place] [id number] Dec, Pain in right hip M25.551 [facility] [address] [id number] [address] [place] [id number] Nov, Acute bronchitis 466.0 [facility] [address] [id number] [address] [place] [id number] Nov, [facility] [address] [id number] [address] [place] [phone] Oct, [facility] [address] [id number] [address] [place] [id number] Sep, [facility] [address] [id number] [address] [place] [phone] Aug, [facility] [address] [id number] [address] [place] [phone] July, [facility] [address] [id number] [address] [place] [phone] Jun, [facility] [address] [id number] [address] [place] [id number] Jun, [facility] [address] [id number] [address] [place] [phone] May, [facility] [address] [id number] [address] [place] [phone] May, [facility] [address] [id number] [address] [place] [id number] Apr, [facility] [address] [id number] [address] [place] [phone] Apr, [facility] [address] [id number] [address] [place] [id number] Apr, [facility] [address] [id number] [address] [place] [id number] Apr, [facility] [address] [id number] [address] [place] [address], [place] [address] Apr, [facility] [address] [id number] [address] [place] [address], [place] [address] Apr, [facility] [address] [id number] [address] [place] [address], [place] [address] Mar, [facility] [address] [id number] [address] [place] [address], [place] [address] Mar, [facility] [address] [id number] [address] [place] [address], [place] [address] Feb, [facility] [address] [id number] [address] [place] [address], [place] [address] Feb, [facility] [address] [id number] [address] [place] [address], [place] [address] Feb, [facility] [address] [id number] [address] [place] [address], [place] [address] Dec, [facility] [address] [id number] [address] [place] [address], [place] [address] Dec, [facility] [address] [id number] [address] [place] [address], [place] [address] Nov, [facility] [address] [id number] [address] [place] [address], [place] [address] Nov, [facility] [address] [id number] [address] [place] [phone] Nov, [facility] [address] [id number] [address] [place] [address], [place] [address] Nov, [facility] [address] [id number] [address] [place] [address], [place] [address] Sep, [facility] [address] [id number] [address] [place] [address], [place] [address] Sep, [facility] [address] [id number] [address] [place] [address], [place] [address] Sep, [facility] [address] [id number] [address] [place] [address], [place] [address] Sep, [facility] [address] [id number] [address] [place] [address], [place] [address] Aug, [facility] [address] [id number] [address] [place] [address], [place] [address] Aug, [facility] [address] [id number] [address] [place] [address], [place] [address] Aug, [facility] [address] [id number] [address] [place] [address], [place] [address] Aug, [facility] [address] [id number] [address] [place] [address], [place] [address] July, [facility] [address] [id number] [address] [place] [address], [place] [address] July, [facility] [address] [id number] [address] [place] [address], [place] [address] Jun, [facility] [address] [id number] [address] [place] [address], [place] [address] Jun, [facility] [address] [id number] [address] [place] [address], [place] [address] Jun, [facility] [address] [id number] [address] [place] [address], [place] [address] Jun, [facility] [address] [id number] [address] [place] [address], [place] [address] Jun, [facility] [address] [id number] [address] [place] [address], [place] [address] Jun, [facility] [address] [id number] [address] [place] [address], [place] [address] Jun, [facility] [address] [id number] [address] [place] [address], [place] [address] Jun, [facility] [address] [id number] [facility] [place] [address] May, [facility] [address] [id number] [address] [place] [address], [place] [address] May, [facility] [address] [id number] [address] [place] [address], [place] [address] May, [facility] [address] [id number] [address] [place] [address], [place] [address] May, [facility] [address] [id number] [address] [place] [address], [place] [address] May, [facility] [address] [id number] [address] [place] [address], [place] [address] May, [facility] [address] [id number] [address] [place] [address], [place] [address] Apr, [facility] [address] [id number] [address] [place] [address], [place] [address] Apr, [facility] [address] [id number] [address] [place] [address], [place] [address] Apr, [facility] [address] [id number] [address] [place] [address], [place] [address] Apr, [facility] [address] [id number] [address] [place] [address], [place] [address] Mar, [facility] [address] [id number] [address] [place] [address], [place] [address] Mar, [facility] [address] [id number] [address] [place] [address], [place] [address] Mar, [facility] [address] [id number] [address] [place] [address], [place] [address] Mar, [facility] [address] [id number] [address] [place] [address], [place] [address] Mar, [facility] [address] [id number] [address] [place] [id number] Mar, [facility] [address] [id number] [address] [place] [address], [place] [address] Feb, [facility] [address] [id number] [address] [place] [address], [place] [address] Feb, [facility] [address] [id number] [address] [place] [address], [place] [address] Feb, [facility] [address] [id number] [address] [place] [address], [place] [address] Feb, [facility] [address] [id number] [address] [place] [address], [place] [address] Feb, [facility] [address] [id number] [address] [place] [address], [place] [address] Feb, [facility] [address] [id number] [address] [place] [address], [place] [address] Feb, [facility] [address] [id number] [address] [place] [address], [place] [address] Feb, [facility] [address] [id number] [address] [place] [address], [place] [address] Feb, [facility] [address] [id number] [address] [place] [address], [place] [address] Feb, [facility] [address] [id number] [address] [place] [address], [place] [address] Feb, [facility] [address] [id number] [address] [place] [id number] Feb, [facility] [address] [id number] [address] [place] [address], [place] [address] Jan, [facility] [address] [id number] [address] [place] [address], [place] [address] Jan, [facility] [address] [id number] [address] [place] [address], [place] [address] Jan, [facility] [address] [id number] [address] [place] [address], [place] [address] Jan, [facility] [address] [id number] [address] [place] [address], [place] [address] Jan, [facility] [address] [id number] [address] [place] [address], [place] [address] Jan, [facility] [address] [id number] [address] [place] [address], [place] [address] Jan, [facility] [address] [id number] [address] [place] [address], [place] [address] Jan, [facility] [address] [id number] [address] [place] [address], [place] [address] Jan, [facility] [address] [id number] [address] [place] [address], [place] [address] Jan, [facility] [address] [id number] [address] [place] [address], [place] [address] Dec, [facility] [address] [id number] [address] [place] [address], [place] [address] Dec, [facility] [address] [id number] [address] [place] [address], [place] [address] Nov, [facility] [address] [id number] [address] [place] [address], [place] [address] Nov, [facility] [address] [id number] [address] [place] [address], [place] [address] Nov, [facility] [address] [id number] [address] [place] [address], [place] [address] 05 Nov, 2012 [facility] [address] [id number] [address] [place] [address], [place] [address] Nov, [facility] [address] [id number] [address] [place] [address], [place] [address] Oct, [facility] [address] [id number] [address] [place] [address], [place] [address] Oct, [facility] [address] [id number] [address] [place] [address], [place] [address] Oct, [facility] [address] [id number] [address] [place] [address], [place] [address] Oct, [facility] [address] [id number] [address] [place] [address], [place] [address] Oct, [facility] [address] [id number] [address] [place] [address], [place] [address] Sep, [facility] [address] [id number] [address] [place] [address], [place] [address] Sep, [facility] [address] [id number] [address] [place] [address], [place] [address] Sep, [facility] [address] [id number] [address] [place] [address], [place] [address] Sep, [facility] [address] [id number] [address] [place] [address], [place] [address] Sep, [facility] [address] [id number] [address] [place] [address], [place] [address] Sep, [facility] [address] [id number] [address] [place] [address], [place] [address] Aug, [facility] [address] [id number] [address] [place] [address], [place] [address] Aug, [facility] [address] [id number] [address] [place] [address], [place] [address] July, [facility] [address] [id number] [address] [place] [address], [place] [address] July, [facility] [address] [id number] [address] [place] [address], [place] [address] July, [facility] [address] [id number] [address] [place] [address], [place] [address] Jun, [facility] [address] [id number] [address] [place] [address], [place] [address] 18 Jun, 2012 [facility] [address] [id number] [address] [place] [address], [place] [address] 16 Jun, 2012 [facility] [address] [id number] [address] [place] [address], [place] [address] Jun, [facility] [address] [id number] [address] [place] [address], [place] [address] May, [facility] [address] [id number] [address] [place] [address], [place] [address] May, [facility] [address] [id number] [address] [place] [address], [place] [address] Apr, [facility] [address] [id number] [address] [place] [address], [place] [address] Apr, [facility] [address] [id number] [address] [place] [address], [place] [address] Apr, [facility] [address] [id number] [address] [place] [address], [place] [address] Apr, [facility] [address] [id number] [address] [place] [address], [place] [address] Apr, [facility] [address] [id number] [address] [place] [address], [place] [address] Apr, [facility] [address] [id number] [address] [place] [id number] Apr, [facility] [address] [id number] [address] [place] [address], [place] [address] Apr, [facility] [address] [id number] [address] [place] [address], [place] [address] Mar, [facility] [address] [id number] [address] [place] [address], [place] [address] Mar, [facility] [address] [id number] [address] [place] [address], [place] [address] Mar, [facility] [address] [id number] [address] [place] [address], [place] [address] Mar, [facility] [address] [id number] [address] [place] [address], [place] [address] Jan, [facility] [address] [id number] [address] [place] [address], [place] [address] Jan, [facility] [address] [id number] [address] [place] [address], [place] [address] Jan, [facility] [address] [id number] [address] [place] [address], [place] [address] Jan, [facility] [address] [id number] [address] [place] [address], [place] [address] Jan, [facility] [address] [id number] [address] [place] [address], [place] [address] Dec, [facility] [address] [id number] [address] [place] [address], [place] [address] Dec, [facility] [address] [id number] [address] [place] [address], [place] [address] Dec, [facility] [address] [id number] [address] [place] [address], [place] [address] Dec, [facility] [address] [id number] [address] [place] [address], [place] [address] Nov, [facility] [address] [id number] [address] [place] [address], [place] [address] Oct, [facility] [address] [id number] [address] [place] [address], [place] [address] Oct, [facility] [address] [id number] [address] [place] [address], [place] [address] Oct, [facility] [address] [id number] [address] [place] [address], [place] [address] Oct, [facility] [address] [id number] [address] [place] [address], [place] [address] Oct, [facility] [address] [id number] [address] [place] [address], [place] [address] Sep, [facility] [address] [id number] [address] [place] [address], [place] [address] Sep, [facility] [address] [id number] [address] [place] [address], [place] [address] Aug, [facility] [address] [id number] [address] [place] [address], [place] [address] Aug, [facility] [address] [id number] [address] [place] [address], [place] [address] Aug, [facility] [address] [id number] [address] [place] [address], [place] [address] Aug, [facility] [address] [id number] [address] [place] [address], [place] [address] July, [facility] [address] [id number] [address] [place] [address], [place] [address] Jun, [facility] [address] [id number] [address] [place] [address], [place] [address] May, [facility] [address] [id number] [address] [place] [address], [place] [address] May, [facility] [address] [id number] [address] [place] [address], [place] [address] May, [facility] [address] [id number] [address] [place] [address], [place] [address] Mar, [facility] [address] [id number] [address] [place] [address], [place] [address] Feb, [facility] [address] [id number] [address] [place] [address], [place] [address] Feb, [facility] [address] [id number] [address] [place] [address], [place] [address] Jan, [facility] [address] [id number] [address] [place] [id number] Jan, [facility] [address] [id number] [address] [place] [phone] Jan, [facility] [address] [id number] [address] [place] [id number] Jan, [facility] [address] [id number] [address] [place] [id number] 30 [address], [address] [facility] [address] [id number] [address] [place] [phone] Dec, [facility] [address] [id number] [address] [place] [id number] Dec, [facility] [address] [id number] [address] [place] [phone] Dec, [facility] [address] [id number] [address] [place] [phone] May, [facility] [address] [id number] [address] [place] [phone] May, [facility] [address] [id number] [address] [place] [id number] 17 Apr, [facility] [address] [id number] [address] [place] [id number] Jan, [facility] [address] [id number] [address] [place] [phone] Apr, IMMUNIZATIONS No Known Immunizations SOCIAL HISTORY Never Assessed REASON FOR VISIT PLAN OF CARE VITAL SIGNS Height 62 in 2012-01-17 Weight 219 lbs 2012-01-17 Temperature 96.4 degrees Fahrenheit 2012-01-17 Heart Rate 90 bpm 2012-01-17 Respiratory Rate 18 2012-01-17 Blood pressure systolic 126 mmHg 2012-01-17 Blood pressure diastolic 86 mmHg 2012-01-17 MEDICATIONS Unknown Medications RESULTS No Results PROCEDURES [...] [facility]- [facility]- Stayed a [facility][1] ICU 12/2017 Hospitalization [facility] 03[facility]2018 Hospitalization History [facility]- Stroke 2 weeks 06/2018 Hospitalization History [facility] 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
--- OUTSIDE RECORDS SUMMARY | 2019-10-19 08:30 | XMS REPORT ---
Author Author Eugenio LINDA [facility] Address [address] [place] [address] Care Team Providers Care Director Of Medical Services Name Role Phone EUGENIO LINDA Unavailable PROBLEMS Type Condition ICD9-CM Code SUL54-QJ Code Onset Dates Condition S tatus SNOMED Code Problem Other chronic pain G89.29 Active 8 3332469 Problem Other organ or system involvement in systemic julito pus erythematosus M32.19 Active 52552388 Problem Mixed hyperlipidemia E78.2 Active 875332135 Problem Asymptomatic menopausal state Z78.0 Active 97985517 Problem Anxiety F41.9 Active 23722633 Problem Right renal artery stenosis I70.1 Ac tive [id number] Problem Episode of recurrent major d epressive disorder, unspecified depression episode severity F33.9 Active 549987202 Problem Non-pressure chronic ulcer o f other part of unspecified foot limited to breakdown of skin L97.501 Active 586473810 Problem Other chronic pain G89.29 Active 8 6345254 Problem Non-pressure chronic ulcer o f other part of unspecified foot limited to breakdown of skin L97.501 Active 560821741 Problem Urinary frequency R35.0 Active 16 6265837 Problem Acute right-sided low back pain with right-sided sciatica M54.41 Active 312169373 Problem Lumbago with sciatica, right side M54.41 Active 525418869 Problem 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 99218911 Problem Sialoadenitis, unspecified K11.20 Act gulshan 66943166 Problem Cerebrovascular accident (CV A) due to occlusion of other cerebral artery I63.59 Active 557624952 Problem Sciatica M54.30 Active 82203956 Problem 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.01 Active 277079551 Problem Systolic congestive heart failure, unspecified HF chronici ty I50.20 Active 73327449 Problem Unsteady gait R26.81 Active 258846 008 Problem Seborrheic keratoses L82.1 Active 867305274 Problem Frequent falls R29.6 Active 28769 2002 Problem HILARIO (obstructive sleep apnea) G47.33 Active 51659635 Problem Necrosis I96 Active 004813061 Problem 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 Active 672909983 Problem Gangrene I96 Active 545843845 Problem Hepatitis C B19.20 Active 54900469 Problem Type 2 diabetes mellitus with foot ulcer E11.621 Active 276586238846771 Problem Type 2 diabetes mellitus with foot ulcer E11.621 Active 141011801036575 Problem Arterial insufficiency of lower extremity I73.9 Active 497460000416009 Problem Cardiomyopathy of undetermined type I42.9 Active 67942781 Problem Chronic anticoagulation Z79.01 Active 480607695 Problem Atherosclerosis of renal artery I70.1 Active 928295386798849 Problem Systemic lupus erythematosus , unspecified SLE type, unspecified organ involvement status M32.9 Active 86529440 Problem [facility] 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 Z79 .01 Active 496138387 Problem Ventricular tachycardia I47.2 Active 71694729 Problem Current moderate episode of major depressive disorder without prior episode F32.1 Active 67593730 Problem Body mass index (BMI) 29.0-29.9, adult Z68.29 Active 737164936 Problem Hypertension I10 Active 1481644 3 ALLERGIES No Information ENCOUNTERS Encounter Location Date Diagnosis [facility] [address] [address] Jun, [facility] [address] [address] May, [facility] [address] [address] 03 May, 2019 Other chronic pain G89.29 [facility] [address] [address] 20 Apr, 2019 Atherosclerosis of renal artery I70.1 ; Cardiomyopathy of undetermined type I42.9 and Ventricular tachycardia I47.2 [facility] [address] [address] 14 Apr, 2019 [facility] [address] [facility] [id number] [address] [place] [address] 11 Apr, 2019 Non-intractable vomiting wit h nausea, unspecified vomiting type R11.2 [place] [address] [address] 03 Apr, 2019 Other chronic pain G89.29 [place] [address] [address] Mar, Other chronic pain G89.29 [place] [address] [address] Feb, Renal insufficiency N28.9 [place] [address] [address] Feb, [place] [address] [address] Feb, Frequent headaches R51 and Hypertension I10 [place] [address] [address] Feb, Other chronic pain G89.29 [place] [address] [address] Jan, Encounter for Medicare annual wellness e [...] episode F32.1 and Encounter for immunization Z23 [place] [address] [address] Jan, [place] [address] [address] Jan, Other chronic pain G89.29 [place] [address] [address] Dec, [place] [address] [address] Dec, Hypokalemia E87.6 [place] [address] [address] 15 Dec, 2018 Nausea R11.0 [place] [address] [address] 14 Dec, 2018 Other chronic pain G89.29 [place] [address] [address] Dec, Systolic congestive heart failure, unspe cified HF chronicity I50.20 and Ventricular tachycardia I47.2 [place] [address] [address] 08 Dec, 2018 [place] [address] [address] 17 Nov, 2018 Other chronic pain G89.29 [place] [address] [address] 04 Nov, 2018 Nausea with vomiting, unspecified R11.2 [place] [address] [address] Oct, [place] [address] [address] Oct, Other chronic pain G89.29 [place] [address] [address] Oct, [address] [address] Oct, Arterial insufficiency of lower extremit y I73.9 and High risk medication use Z79.899 [facility] [address] [place] [id number] [address] [place] [address] Oct, Type 2 diabetes mellitus wit h foot ulcer E11.621 and Non-pressure chronic ulcer of other part of unspecified foot limited to breakdown of skin L97.501 [facility] [address] [place], [place] [id number] [address] [place] [address] Oct, Gangrene I96 [place] [address] [address] Sep, Other chronic pain G89.29 [place] [address] [address] Sep, Status post CVA Z86.73 ; Unsteady gait R 26.81 and Frequent falls R29.6 [place] [address] [address] Sep, Nausea with vomiting, unspecified R11.2 [place] [address] [address] Sep, Other chronic pain G89.29 [place] [address] [address] Aug, [place] [address] [address] Aug, Other chronic pain G89.29 [place] [address] [address] July, [facility] current use of anticoagulant Z 79.01 and Cerebrovascular accident (CVA) due to occlusion of other cerebral artery I63.[address] [address] July, Renal insufficiency N28.9 [place] [address] [address] July, Cerebrovascular accident (CVA) due to oc clusion of other cerebral artery I63.59 and Unexplained weight loss R63.4 [place] [address] [address] July, [place] [address] [address] July, [address] [address] July, Unexplained weight loss R63.4 and Long t erm current use of anticoagulant Z79.01 [place] [address] [address] July, Other chronic pain G89.29 [place] [address] [address] Jun, Other chronic pain G89.29 [place] [address] [address] May, Unexplained weight loss R63.4 [place] [address] [address] May, Nausea with vomiting, unspecified R11.2 [place] [address] [address] May, Non-recurrent acute suppurative otitis m edia of right ear without spontaneous rupture of tympanic membrane H66.001 and Chronic anticoagulation Z79.01 [place] [address] [address] May, Other chronic pain G89.29 [facility] [address] [facility] [id number] [address] [place] [address] Apr, Skin tear of right forearm w ithout complication, initial encounter S51.811A ; Skin tear of left forearm without complication, initial encounter S51.812A and Encounter for immunization Z23 [place] [address] [address] Apr, [place] [address] [address] Apr, Diarrhea, unspecified R19.7 ; Nausea wit h vomiting, unspecified R11.2 and 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 [place] [address] [address] 05 Apr, 2018 Other chronic pain G89.29 [place] [address] [address] Mar, Other chronic pain G89.29 [facility] [address] [place] [id number] [place] [address] Mar, Other chronic pain G89.29 [facility] [address] [address] Mar, [facility] [address] [address] Mar, Other organ or system involvement in sys temic lupus erythematosus M32.19 [place] [address] [address] Mar, Non-recurrent acute suppurative otitis m edia of right ear without spontaneous rupture of tympanic membrane H66.001 and Chronic anticoagulation Z79.01 [facility] [address] [facility] [id number] [address] [place] [address] Feb, Sialoadenitis, unspecified K 11.20 [place] [address] [address] Feb, Other chronic pain G89.29 [place] [address] [address] Jan, 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 t herapy Z79.01 [place] [address] [address] Jan, Other chronic pain G89.29 ; Lumbago with sciatica, right side M54.41 ; Other chronic pain G89.29 ; Tobacco abuse Z72.0 ; Tobacco abuse counseling Z71.6 ; Mixed hyperlipidemia E78.2 and [facility] 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 Z79.01 [place] [address] [address] Jan, [place] [address] [address] Dec, [place] [address] [address] Dec, [place] [address] [place] [id number] [place] [address] Dec, [facility] [address] [address] Dec, Mixed hyperlipidemia E78.2 ; Other chron [...] involvement in systemic lupus erythematosus M32.19 [facility] [address] [place] [id number] Dec, Right renal artery stenosis I70.1 ; Othe r organ or system involvement in systemic lupus erythematosus M32.19 ; Hepatitis C B19.20 ; Tobacco abuse Z72.0 and Weakness R53.1 [facility] [address] [place] [id number] Dec, [place] [address] [address] Dec, [place] [address] [address] Dec, Other organ or system involvement in sys temic lupus erythematosus M32.19 [facility] [address] [place] [id number] Dec, Right renal artery stenosis I70.1 ; Inju ry of right kidney, sequela S37.001S ; Tobacco abuse Z72.0 ; Systemic lupus erythematosus, unspecified SLE type, unspecified organ involvement status M32.9 ; Hepatitis C B19.20 and Candidiasis of female genitalia B37.3 [facility] [address] [place] [address] [id number] [place] [address] Dec, Other organ or system involvement in sys temic lupus erythematosus M32.19 [facility] [address] [place] [id number] [place] [address] Dec, Other organ or system involvement in sys temic lupus erythematosus M32.19 [facility] [address] [place] [id number] [place] [address] Dec, [facility] [address] [place] [id number] [place] [address] Nov, Other organ or system involvement in sys temic lupus erythematosus M32.19 [facility] [address] [address] Oct, Other organ or system involvement in sys temic lupus erythematosus M32.19 [facility] [address] [address] Sep, Other organ or system involvement in sys temic lupus erythematosus M32.19 [facility] [address] [place] [id number] [place] [address] Aug, Anxiety F41.9 [facility] [address] [place] [id number] [place] [address] Aug, Other organ or system involvement in sys temic lupus erythematosus M32.19 [facility] [address] [place] [id number] [place] [address] July, Medicare annual wellness visit, initial Z00.00 ; Anxiety F41.9 ; HILARIO (obstructive sleep apnea) G47.33 ; Hepatitis C B19.20 ; Other chronic pain G89.29 ; Asymptomatic menopausal state Z78.0 and Episode of recurrent major depressive disorder, unspecified depression episode severity F33.9 [facility] [address] [place] [address] [id number] [place] [address] July, Anxiety F41.9 [facility] [address] [address] July, Other organ or system involvement in sys temic lupus erythematosus M32.19 [facility] [address] [place] [id number] [place] [address] July, [facility] [address] [address] Jun, Other organ or system involvement in sys temic lupus erythematosus M32.19 ; BMI 40.0-44.9, adult Z68.41 ; Other chronic pain G89.29 and Controlled substance agreement signed Z79.899 [place] [address] [address] May, Sciatica M54.30 [place] [address] [address] Apr, Sciatica M54.30 [place] [address] [address] Mar, Sciatica M54.30 [place] [address] [address] Feb, Sciatica M54.30 [place] [address] [address] 15 Jan, 2017 Sciatica M54.30 [place] [address] [address] 14 Jan, 2017 Sciatica M54.30 [place] [address] [address] 19 Dec, 2016 Sciatica M54.30 [place] [address] [address] 18 Dec, 2016 Sciatica M54.30 [place] [address] [address] 29 Nov, 2016 Mixed hyperlipidemia E78.2 ; 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 and Family history of early CAD Z82.49 [place] [address] [address] 21 Nov, 2016 Sciatica M54.30 [place] [address] [address] 18 Nov, 2016 Mixed hyperlipidemia E78.2 ; 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 ; Family history of early CAD Z82.49 ; Other chronic pain G89.29 and Pain in left shoulder M25.512 [place] [address] [address] Nov, Acute pain of left shoulder M25.512 [place] [address] [address] Oct, Sciatica M54.30 [place] [address] [address] Oct, [place] [address] [address] Sep, Sciatica M54.30 [place] [address] [address] Sep, Acute pain of left shoulder M25.512 [place] [address] [address] Sep, Acute pain of left shoulder M25.512 [place] [address] [address] Aug, Sciatica M54.30 [place] [address] [address] Aug, Sciatica M54.30 ; Tobacco abuse Z72.0 an d Tobacco abuse counseling Z71.6 [place] [address] [address] Aug, Acute pain of left shoulder M25.512 [facility] [address] [facility] [id number] [address] [place] [address] Aug, Contusion of right shoulder, initial encounter S40.011A ; Acute pain of left shoulder M25.512 and Shortness of breath R06.02 [facility] [address] [address] Aug, Lumbago with sciatica, right side M54.41 [place] [address] [address] July, [facility] [address] [address] July, Lumbago with sciatica, right side M54.41 [place] [address] [address] Jun, Lumbago with sciatica, right side M54.41 [place] [address] [address] May, Lumbago with sciatica, right side M54.41 [facility] [address] [address] May, Herpes zoster without compli cation B02.9 [facility] [address] [address] May, Back pain M54.9 and Acute ri ght-sided low back pain with right-sided sciatica M54.41 [place] [address] [address] Apr, [place] [address] [address] Apr, Lumbago with sciatica, right side M54.41 and Other chronic pain G89.29 [place] [address] [address] Apr, [place] [address] [address] Mar, [place] [address] [address] Mar, [place] [address] [address] Feb, [facility] [address] [address] Jan, Urinary frequency R35.0 [place] [address] [place] [id number] [place] [address] Jan, [facility] [address] [address] Dec, [facility] [address] [address] Oct, [facility] [address] [address] Sep, [facility] [address] [place] [id number] [place] [address] Sep, Foreign body in left foot, i nitial encounter S90.852A [facility] [address] [address] Aug, [facility] [address] [address] July, Sciatica M54.30 [facility] [address] [address] Jun, [facility] [address] [address] May, Osteoarthritis M19.90 [facility] [address] [address] May, [facility] [address] [address] May, Pain in right hip M25.551 [facility] [address] [facility] [id number] [address] [place] [address] May, Tinea corporis B35.4 [facility] [address] [address] 10 Apr, 2015 Pain in right hip M25.551 [facility] [address] [place] [id number] [place] [address] Mar, Pain in right hip M25.551 [facility] [address] [address] Mar, [facility] [id number] [place] [address] Feb, Pain in right hip M25.551 [facility] [address] [id number] [place] [address] Jan, Acute bronchitis, unspecified organism J 20.9 and Cough R05 [facility] [address] [address] Jan, Pain in right hip M25.551 [facility] [address] [address] Dec, Pain in right hip M25.551 [facility] [address] [address] Nov, Acute bronchitis 466.0 [facility] [address] [address] Nov, [facility] [address] [id number] [place] [address] Oct, [facility] [address] [address] Sep, [facility] [address] [address] Aug, [facility] [address] [address] July, [facility] [address] [id number] [place] [address] 14 Jun, 2014 [facility] [address] [address] Jun, [facility] [address] [address] May, [facility] [address] [address] 18 May, 2014 [facility] [address] [address] Apr, 2014 [facility] [address] [id number] [place] [address] Apr, 2014 [facility] [address] [id number] [place] [address] Apr, 2014 [facility] [address] [id number] [place] [address] Apr, 2014 [facility] [address] [id number] [place] [address] Apr, 2014 [facility] [address] [id number] [place] [address] Apr, 2014 [facility] [address] [id number] [place] [address] Mar, [facility] [address] [id number] [place] [address] Mar, [facility] [address] [id number] [place] [address] Feb, [facility] [address] [id number] [place] [address] Feb, [facility] [address] [id number] [place] [address] Feb, [facility] [address] [id number] [place] [address] Dec, [facility] [address] [id number] [place] [address] Dec, [facility] [address] [id number] [place] [address] Nov, 2013 [facility] [address] [id number] [place] [address] Nov, 2013 [facility] [address] [id number] [place] [address] Nov, 2013 [facility] [address] [id number] [place] [address] Nov, 2013 [facility] [address] [id number] [facility] [place] [address] Sep, [facility] [address] [id number] [place] [address] Sep, [facility] [address] [id number] [place] [address] Sep, [facility] [address] [id number] [place] [address] Sep, [facility] [address] [id number] [place] [address] Aug, [facility] [address] [id number] [place] [address] Aug, [facility] [address] [id number] [place] [address] Aug, [facility] [address] [id number] [place] [address] Aug, [facility] [address] [id number] [place] [address] July, [facility] [address] [id number] [place] [address] July, [facility] [address] [id number] [place] [address] Jun, [facility] [address] [id number] [place] [address] Jun, [facility] [address] [id number] [place] [address] Jun, [facility] [address] [id number] [place] [address] Jun, [facility] [address] [id number] [place] [address] Jun, [facility] [address] [id number] [place] [address] Jun, [facility] [address] [id number] [place] [address] Jun, [facility] [address] [facility] [id number] [place] [address] Jun, [facility] [address] [facility] [id number] [facility] [place] [address] May, [facility] [address] [id number] [place] [address] May, [facility] [address] [id number] [place] [address] May, [facility] [address] [facility] [id number] [place] [address] May, [facility] [address] [id number] [place] [address] May, [facility] [address] [id number] [place] [address] May, [facility] [address] [id number] [place] [address] Apr, [facility] [address] [id number] [place] [address] Apr, [facility] [address] [id number] [place] [address] Apr, [facility] [address] [id number] [place] [address] Apr, [facility] [address] [id number] [place] [address] Mar, [facility] [address] [id number] [place] [address] Mar, [facility] [address] [id number] [place] [address] Mar, [facility] [address] [id number] [place] [address] Mar, [facility] [address] [id number] [place] [address] Mar, [facility] [address] [id number] [place] [address] Mar, [facility] [address] [id number] [place] [address] Feb, [facility] [facility] [id number] [place] [address] Feb, [facility] [id number] [place] [address] Feb, [facility] [id number] [place] [address] Feb, [facility] [id number] [place] [address] Feb, [facility] [id number] [place] [address] Feb, [facility] [id number] [place] [address] Feb, [facility] [id number] [place] [address] Feb, [facility] [id number] [place] [address] Feb, [facility] [id number] [place] [address] Feb, [facility] [id number] [place] [address] Feb, [facility] [id number] [place] [address] Feb, [facility] [id number] [place] [address] Jan, [facility] [id number] [place] [address] Jan, [facility] [id number] [place] [address] Jan, [facility] [id number] [place] [address] Jan, [facility] [id number] [place] [address] Jan, [facility] [id number] [place] [address] Jan, [facility] [id number] [place] [address] Jan, [facility] [id number] [place] [address] Jan, [facility] [id number] [place] [address] Jan, [facility] [id number] [place] [address] Jan, [facility] [id number] [place] [address] Dec, [facility] [id number] [place] [address] Dec, [facility] [id number] [place] [address] Nov, [facility] [id number] [place] [address] 25 Nov, 2012 [facility] [id number] [place] [address] 09 Nov, 2012 [facility] [id number] [place] [address] 05 Nov, 2012 [facility] [id number] [place] [address] Nov, [facility] [id number] [place] [address] Oct, [facility] [id number] [place] [address] Oct, [facility] [id number] [place] [address] Oct, [facility] [id number] [place] [address] Oct, [facility] [address] [id number] [facility] [place] [address] Oct, [facility] [address] [facility] [id number] [facility] [address] Sep, [facility] [id number] [facility] [place] [address] Sep, [facility] [id number] [facility] [place] [address] Sep, [facility] [address] [facility] [id number] [facility] [place] [address] Sep, [facility] [id number] [place] [address] Sep, [facility] [id number] [place] [address] Sep, [facility] [id number] [place] [address] Aug, [facility] [id number] [place] [address] Aug, [facility] [id number] [place] [address] July, [facility] [id number] [place] [address] July, [facility] [id number] [place] [address] July, [facility] [id number] [place] [address] Jun, [facility] [address] [id number] [place] [address] Jun, [facility] [id number] [place] [address] Jun, [facility] [id number] [place] [address] Jun, [facility] [id number] [place] [address] May, [facility] [id number] [place] [address] May, [facility] [id number] [place] [address] Apr, [facility] [id number] [place] [address] Apr, [facility] [id number] [place] [address] Apr, [facility] [id number] [place] [address] Apr, [facility] [id number] [place] [address] Apr, [facility] [id number] [place] [address] Apr, [facility] [address] [facility] [id number] [place] [id number] Apr, [facility] [id number] [place] [address] Apr, [facility] [id number] [place] [address] Mar, [facility] [id number] [place] [address] Mar, [facility] [id number] [place] [address] Mar, [facility] [id number] [place] [address] Mar, [facility] [id number] [place] [address] Jan, [facility] [id number] [place] [address] Jan, [facility] [id number] [place] [address] Jan, [facility] [id number] [place] [address] Jan, [facility] [id number] [place] [address] Jan, [facility] [id number] [place] [address] Dec, [facility] [id number] [place] [address] Dec, [facility] [id number] [place] [address] Dec, [facility] [id number] [place] [address] Dec, [facility] [id number] [place] [address] Nov, [facility] [id number] [place] [address] Oct, [facility] [id number] [place] [address] Oct, [facility] [id number] [place] [address] Oct, [facility] [id number] [place] [address] Oct, [facility] [id number] [place] [address] Oct, [facility] [id number] [place] [address] Sep, [facility] [id number] [place] [address] Sep, [facility] [id number] [place] [address] Aug, [facility] [id number] [place] [address] Aug, [facility] [id number] [place] [address] Aug, [facility] [id number] [place] [address] Aug, [facility] [id number] [place] [address] July, [facility] [id number] [place] [address] Jun, [facility] [id number] [place] [address] May, [facility] [id number] [place] [address] May, [facility] [id number] [place] [address] May, [facility] [id number] [place] [address] Mar, [facility] [id number] [place] [address] Feb, [facility] [id number] [place] [address] Feb, [facility] [id number] [place] [address] Jan, [facility] [id number] [place] [address] Jan, [facility] [id number] [place] [address] Jan, [facility] [id number] [place] [address] Jan, [facility] [id number] [place] [address] 30 Jan, 2010 [facility] [id number] [place] [address] 20 Dec, 2009 [facility] [id number] [place] [address] 13 Dec, 2009 [facility] [id number] [place] [address] 13 Dec, 2009 [facility] [id number] [place] [address] 18 May, 2009 [facility] [id number] [place] [address] 15 May, 2009 [facility] [id number] [place] [address] Apr, [facility] [id number] [place] [address] Jan, [facility] [id number] [place] [address] Apr, IMMUNIZATIONS No Known Immunizations SOCIAL HISTORY [...] for cancer Hospitalization History surgeries Hospitalization History [facility] ER, heart- kidney[facility] Stayed a t [facility] ICU 12/2017 Hospitalization History [facility] ER 03/2018 Hospitalization History [facility]- Stroke 2 weeks 06[facility]2018 Hospitalization History ER 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
--- OUTSIDE RECORDS SUMMARY | 2019-10-19 08:30 | XMS REPORT ---
Author Author Eugenio LINDA [facility] Address [address] [place] [address] Care Team Providers [employer] Name Role Phone EUGENIO LINDA Unavailable PROBLEMS Type Condition ICD9-CM Code SUM14-CU Code Onset Dates Condition S tatus SNOMED Code Problem Other chronic pain G89.29 Active 8 7449092 Problem Other organ or system involvement in systemic julito pus erythematosus M32.19 Active 14505094 Problem Mixed hyperlipidemia E78.2 Active 662317182 Problem Asymptomatic menopausal state Z78.0 Active 92125404 Problem Anxiety F41.9 Active 45642756 Problem Right renal artery stenosis I70.1 Ac tive 08120548206265492 Problem Episode of recurrent major d epressive disorder, unspecified depression episode severity F33.9 Active 083724304 Problem Non-pressure chronic ulcer o f other part of unspecified foot limited to breakdown of skin L97.501 Active 750749046 Problem Other chronic pain G89.29 Active 8 1388941 Problem Non-pressure chronic ulcer o f other part of unspecified foot limited to breakdown of skin L97.501 Active 630782667 Problem Urinary frequency R35.0 Active 16 4014395 Problem Acute right-sided low back pain with right-sided sciatica M54.41 Active 816795683 Problem Lumbago with sciatica, right side M54.41 Active 486621703 Problem 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 14795669 Problem Sialoadenitis, unspecified K11.20 Act gulshan 59836242 Problem Cerebrovascular accident (CV A) due to occlusion of other cerebral artery I63.59 Active 421617933 Problem Sciatica M54.30 Active 99240001 Problem 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 Active 658397346 Problem Systolic congestive heart failure, unspecified HF chronici ty I50.20 Active 14078422 Problem Unsteady gait R26.81 Active 112756 008 Problem Seborrheic keratoses L82.1 Active 988752646 Problem Frequent falls R29.6 Active 05074 2002 Problem HILARIO (obstructive sleep apnea) G47.33 Active 06299798 Problem Necrosis I96 Active 510115663 Problem 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 Active 861241224 Problem Gangrene I96 Active 003195838 Problem Hepatitis C B19.20 Active 41216312 Problem Type 2 diabetes mellitus with foot ulcer E11.621 Active 804501905755779 Problem Type 2 diabetes mellitus with foot ulcer E11.621 Active 874120356862077 Problem Arterial insufficiency of lower extremity I73.9 Active 663024785931047 Problem Cardiomyopathy of undetermined type I42.9 Active 83392250 Problem Chronic anticoagulation Z79.01 Active 177528828 Problem Atherosclerosis of renal artery I70.1 Active 353529138319311 Problem Systemic lupus erythematosus , unspecified SLE type, unspecified organ involvement status M32.9 Active 41693585 Problem assisted 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 Z79 .01 Active 083028096 Problem Ventricular tachycardia I47.2 Active 81947093 Problem Current moderate episode of major depressive disorder without prior episode F32.1 Active 87344316 Problem Body mass index (BMI) 29.0-29.9, adult Z68.29 Active 671500186 Problem Hypertension I10 Active 3904486 3 ALLERGIES No Information ENCOUNTERS Encounter Location Date Diagnosis [place] [address] [place] [id number] [place] [phone] 03 Jun, 2019 [place] [id number] [place] [address] 16 May, 2019 [place] [address] [facility] [id number] [address] [place] [address] 03 May, 2019 Other chronic pain G89.29 [place] [address] [place] [id number] [place] [phone] 20 Apr, 2019 Atherosclerosis of renal art taurus I70.1 ; Cardiomyopathy of undetermined type I42.9 and Ventricular tachycardia I47.2 [place] [address] [place] [id number] [place] [address] 14 Apr, 2019 [facility] [address] [facility] [id number] [address] [place] [phone] 11 Apr, 2019 Non-intractable vomiting wit h nausea, unspecified vomiting type R11.2 [facility] [address] [facility] [id number] [address] [place] [address] 03 Apr, 2019 Other chronic pain G89.29 [facility] [address] [phone] 08 Mar, 2019 Other chronic pain G89.29 [facility] [address] [place] [id number] [place] [id number] Feb, Renal insufficiency N28.9 [facility] [address] [place] [id number] [place] [address] Feb, [facility] [address] [address] Feb, Frequent headaches R51 and H ypertension I10 [place] [address] [address] Feb, Other chronic pain G89.29 [facility] [address] [phone] 27 Jan, 2019 Encounter for Medicare annua [...] episode F32.1 and Encounter for immunization Z23 [facility] [address] [place] [id number] [place] [phone] Jan, [facility] [address] [address] Jan, Other chronic pain G89.29 [facility] [address] [facility] [id number] [address] [place] [address] Dec, [facility] [address] [facility] [id number] [address] [place] [address] Dec, Hypokalemia E87.6 [facility] [address] [facility] [id number] [address] [place] [id number] 15 Dec, 2018 Nausea R11.0 [facility] [address] [facility] [id number] [address] [place] [address] 14 Dec, 2018 Other chronic pain G89.29 [facility] [address] [facility] [id number] [address] [place] [address] Dec, Systolic congestive heart fa ilure, unspecified HF chronicity I50.20 and Ventricular tachycardia I47.2 [facility] [address] [facility] [id number] [address] [place] [address] Dec, [facility] [address] [facility] [id number] [address] [place] [address] 17 Nov, 2018 Other chronic pain G89.29 [facility] [address] [facility] [id number] [address] [place] [address] 04 Nov, 2018 Nausea with vomiting, unspec ified R11.2 [facility] [address] [facility] [id number] [address] [place] [address] Oct, [facility] [address] [facility] [id number] [address] [place] [address] Oct, Other chronic pain G89.29 [facility] [address] [facility] [id number] [address] [place] [address] Oct, [facility] [address] [place] [id number] [place] [address] Oct, Arterial insufficiency of lo wer extremity I73.9 and High risk medication use Z79.899 [facility] [address] [facility] [id number] [address] [place] [address] Oct, Type 2 diabetes mellitus wit h foot ulcer E11.621 and Non-pressure chronic ulcer of other part of unspecified foot limited to breakdown of skin L97.501 [facility] [address] [facility] [id number] [address] [place] [address] Oct, Gangrene I96 [facility] [address] [facility] [id number] [address] [place] [address] Sep, Other chronic pain G89.29 [facility] [address] [place] [id number] [place] [address] Sep, Status post CVA Z86.73 ; Uns teady gait R26.81 and Frequent falls R29.6 [facility] [address] [facility] [id number] [address] [place] [address] Sep, Nausea with vomiting, unspec ified R11.2 [place] [address] [place] [id number] [place] [address] Sep, Other chronic pain G89.29 [facility] [address] [place] [id number] [place] [phone] Aug, [place] [address] [place] [id number] [place] [address] Aug, Other chronic pain G89.29 [facility] [address] [place] [id number] [place] [address] July, 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 of ant icoagulant Z79.01 and Cerebrovascular accident (CVA) due to occlusion of other cerebral artery I63.59 [place] [address] [facility] [id number] [address] [place] [address] July, Renal insufficiency N28.9 [place] [address] [facility] [id number] [address] [place] [address] July, Cerebrovascular accident (CV A) due to occlusion of other cerebral artery I63.59 and Unexplained weight loss R63.4 [place] [address] [place] [id number] [place] [address] July, [facility] [address] [facility] [id number] [address] [place] [phone] July, [facility] [address] [facility] [id number] [address] [place] [address] July, Unexplained weight loss R63. 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 4 [place] [address] [address] May, Nausea with vomiting, unspec ified R11.2 [place] [address] [place] [id number] [place] [address] May, Non-recurrent acute suppurat gulshan otitis media of right ear without spontaneous rupture of tympanic membrane H66.001 and Chronic anticoagulation Z79.01 [facility] [address] [place] [id number] [place] [address] May, Other chronic pain G89.29 [facility] [address] [facility] [id number] [address] [place] [address] Apr, Skin tear of right forearm w ithout complication, initial encounter S51.811A ; Skin tear of left forearm without complication, initial encounter S51.812A and Encounter for immunization Z23 [facility] [address] [facility] [id number] [address] [place] [address] Apr, [facility] [address] [place] [id number] [place] [address] Apr, Diarrhea, unspecified R19.7 ; Nausea with vomiting, unspecified R11.2 and 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 [facility] [address] [facility] [id number] [address] [place] [address] 05 Apr, 2018 Other chronic pain G89.29 [facility] [address] [facility] [id number] [address] [place] [address] Mar, Other chronic pain G89.29 [facility] [address] [facility] [id number] [address] [place] [address] Mar, Other chronic pain G89.29 [place] [address] [facility] [id number] [address] [place] [address] Mar, [place] [address] [facility] [id number] [address] [place] [address] Mar, Other organ or system involv ement in systemic lupus erythematosus M32.19 [facility] [address] [facility] [id number] [address] [place] [address] Mar, Non-recurrent acute suppurat gulshan otitis media of right ear without spontaneous rupture of tympanic membrane H66.001 and Chronic anticoagulation Z79.01 [facility] [address] [facility] [id number] [address] [place] [address] Feb, Sialoadenitis, unspecified K 11.20 [facility] [address] [facility] [id number] [address] [place] [address] Feb, Other chronic pain G89.29 [facility] [address] [facility] [id number] [address] [place] [address] Jan, 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 of ant icoagulant therapy Z79.01 [facility] [address] [facility] [id number] [address] [place] [address] Jan, Other chronic pain G89.29 ; Lumbago with sciatica, right side M54.41 ; Other chronic pain G89.29 ; Tobacco abuse Z72.0 ; Tobacco abuse counseling Z71.6 ; Mixed hyperlipidemia E78.2 and 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 Z79.01 [facility] [address] [facility] [id number] [address] [place] [address] Jan, [facility] [address] [facility] [id number] [address] [place] [address] Dec, [facility] [address] [facility] [id number] [address] [place] [phone] Dec, [facility] [address] [facility] [id number] [address] [place] [address] Dec, [facility] [address] [facility] [id number] [address] [place] [address] Dec, Mixed hyperlipidemia E78.2 ; Other chronic [...] in systemic lupus erythematosus M32.19 [facility] [address] [place] [id number] Dec, Right renal artery stenosis I70.1 ; Othe r organ or system involvement in systemic lupus erythematosus M32.19 ; Hepatitis C B19.20 ; Tobacco abuse Z72.0 and Weakness R53.1 [facility] [employer] [address] [place] [id number] Dec, [facility] [address] [facility] [id number] [address] [place] [address] Dec, [place] [address] [facility] [id number] [address] [place] [address] Dec, Other organ or system involv ement in systemic lupus erythematosus M32.19 [facility] [employer] [address] [place] [id number] Dec, Right renal artery stenosis I70.1 ; Inju ry of right kidney, sequela S37.001S ; Tobacco abuse Z72.0 ; Systemic lupus erythematosus, unspecified SLE type, unspecified organ involvement status M32.9 ; Hepatitis C B19.20 and Candidiasis of female genitalia B37.3 [facility] [address] [id number] [address] [place] [address] Dec, Other organ or system involv ement in systemic lupus erythematosus M32.19 [facility] [address] [id number] [address] [place] [address] Dec, Other organ or system involv ement in systemic lupus erythematosus M32.19 [facility] [address] [id number] [address] [place] [address] Dec, [facility] [address] [id number] [address] [place] [address] Nov, Other organ or system involv ement in systemic lupus erythematosus M32.19 [facility] [address] [id number] [address] [place] [address] Oct, Other organ or system involv ement in systemic lupus erythematosus M32.19 [facility] [address] [id number] [address] [place] [address] Sep, Other organ or system involv ement in systemic lupus erythematosus M32.19 [facility] [address] [id number] [address] [place] [address] Aug, Anxiety F41.9 [facility] [address] [id number] [address] [place] [address] Aug, Other organ or system involv ement in systemic lupus erythematosus M32.19 [facility] [address] [id number] [address] [place] [address] July, Medicare annual wellness vis it, initial Z00.00 ; Anxiety F41.9 ; HILARIO (obstructive sleep apnea) G47.33 ; Hepatitis C B19.20 ; Other chronic pain G89.29 ; Asymptomatic menopausal state Z78.0 and Episode of recurrent major depressive disorder, unspecified depression episode severity F33.9 [facility] [address] [id number] [address] [place] [address] 23 Jul, 2017 Anxiety F41.9 [facility] [address] [facility] [id number] [address] [place] [address] July, Other organ or system involv ement in systemic lupus erythematosus M32.19 [facility] [address] [id number] [address] [place] [address] July, [place] [address] [facility] [id number] [address] [place] [address] Jun, Other organ or system involv ement in systemic lupus erythematosus M32.19 ; BMI 40.0-44.9, adult Z68.41 ; Other chronic pain G89.29 and Controlled substance agreement signed Z79.899 [facility] [address] [facility] [id number] [address] [place] [address] May, Sciatica M54.30 [place] [address] [facility] [id number] [address] [place] [address] 03 Apr, 2017 Sciatica M54.30 [place] [address] [facility] [id number] [address] [place] [address] Mar, Sciatica M54.30 [place] [address] [facility] [id number] [address] [place] [address] Feb, Sciatica M54.30 [place] [address] [facility] [id number] [address] [place] [address] Jan, Sciatica M54.30 [place] [address] [facility] [id number] [address] [place] [address] 14 Jan, 2017 Sciatica M54.30 [facility] [address] [facility] [id number] [address] [place] [address] Dec, Sciatica M54.30 [facility] [address] [id number] [address] [place] [address] Dec, Sciatica M54.30 [facility] [address] [id number] [address] [place] [address] Nov, Mixed hyperlipidemia E78.2 ; Chronic seasonal allergic rhinitis due to other allergen J30.2 and Family history of early CAD Z82.49 [facility] [address] [id number] [address] [place] [address] Nov, Sciatica M54.30 [place] [address] [id number] [address] [place] [address] Nov, Mixed hyperlipidemia E78.2 ; Chronic seasonal allergic rhinitis due to other allergen J30.2 ; Family history of early CAD Z82.49 ; Other chronic pain G89.29 and Pain in left shoulder M25.512 [place] [address] [id number] [address] [place] [address] Nov, Acute pain of left shoulder M25.512 [place] [address] [id number] [address] [place] [address] Oct, Sciatica M54.30 [place] [address] [id number] [address] [place] [address] Oct, [place] [address] [id number] [address] [place] [address] Sep, Sciatica M54.30 [facility] [address] [id number] [address] [place] [address] Sep, Acute pain of left shoulder M25.512 [place] [address] [id number] [address] [place] [address] Sep, Acute pain of left shoulder M25.512 [place] [address] [id number] [address] [place] [address] Aug, Sciatica M54.30 [place] [address] [place] [address] [address] Aug, Sciatica M54.30 ; Tobacco ab use Z72.0 and Tobacco abuse counseling Z71.6 [place] [address] [address] Aug, Acute pain of left shoulder M25.512 [facility] [place] [address] [address] Aug, Contusion of right shoulder, initial encounter S40.011A ; Acute pain of left shoulder M25.512 and Shortness of breath R06.02 [place] [address] [address] Aug, Lumbago with sciatica, right side M54.41 [place] [address] [address] July, [place] [address] [address] July, Lumbago with sciatica, right side M54.41 [place] [address] [address] Jun, Lumbago with sciatica, right side M54.41 [place] [address] [address] May, Lumbago with sciatica, right side M54.41 [facility] [place] [address] [address] May, Herpes zoster without compli cation B02.9 [facility] [place] [address] [address] May, Back pain M54.9 and Acute ri ght-sided low back pain with right-sided sciatica M54.41 [place] [address] [address] Apr, [place] [address] [place] [address] Apr, Lumbago with sciatica, right side M54.41 and Other chronic pain G89.29 [facility] [address] [facility] [id number] [address] [place] [address] Apr, [facility] [address] [facility] [id number] [address] [place] [address] Mar, [facility] [address] [facility] [id number] [address] [place] [address] Mar, [facility] [address] [facility] [id number] [address] [place] [address] Feb, [facility] [address] [place] [id number] [place] [address] Jan, Urinary frequency R35.0 [facility] [address] [facility] [id number] [place] [address] Jan, [facility] [address] [facility] [id number] [address] [place] [address] Dec, [facility] [address] [place] [id number] [place] [address] Oct, [facility] [address] [facility] [id number] [address] [place] [address] Sep, [facility] [address] [facility] [id number] [address] [place] [address] Sep, Foreign body in left foot, i nitial encounter S90.852A [facility] [address] [facility] [id number] [address] [place] [address] Aug, [facility] [address] [place] [id number] [place] [address] July, Sciatica M54.30 [facility] [address] [facility] [id number] [address] [place] [id number] Jun, [facility] [address] [id number] [address] [place] [phone] May, Osteoarthritis M19.90 [facility] [address] [id number] [address] [place] [id number] May, [facility] [address] [id number] [address] [place] [phone] May, Pain in right hip M25.551 [facility] [address] [id number] [address] [place] [id number] May, Tinea corporis B35.4 [facility] [address] [id number] [address] [place] [id number] 10 Apr, 2015 Pain in right hip M25.551 [facility] [address] [facility] [id number] [address] [place] [phone] Mar, Pain in right hip M25.551 [facility] [address] [facility] [id number] [address] [place] [phone] Mar, [facility] [address] [facility] [id number] [address] [place] [id number] Feb, Pain in right hip M25.551 [facility] [address] [facility] [id number] [address] [place] [address] [id number] Jan, Acute bronchitis, unspecifie d organism J20.9 and Cough R05 [facility] [address] [id number] [address] [place] [address] Jan, Pain in right hip M25.551 [facility] [address] [facility] [id number] [address] [place] [address] Dec, Pain in right hip M25.551 [facility] [address] [facility] [id number] [address] [place] [address] Nov, Acute bronchitis 466.0 [facility] [address] [facility] [id number] [address] [place] [address] Nov, [facility] [address] [id number] [address] [place] [address], [place] [address] Oct, [facility] [address] [id number] [address] [place] [address], [place] [address] Sep, [facility] [address] [id number] [address] [place] [address], [place] [address] Aug, [facility] [address] [id number] [address] [place] [address], [place] [address] July, [facility] [address] [id number] [address] [place] [address], [place] [address] Jun, [facility] [address] [id number] [address] [place] [address], [place] [address] Jun, [facility] [address] [id number] [address] [place] [address], [place] [address] May, [facility] [address] [id number] [address] [place] [address], [place] [address] May, [facility] [address] [id number] [address] [place] [address], [place] [address] Apr, [facility] [address] [id number] [address] [place] [address], [place] [address] Apr, [facility] [address] [id number] [address] [place] [address], [place] [address] Apr, [facility] [address] [id number] [address] [place] [address] Apr, [facility] [address] [id number] [address] [place] [address], [place] [address] Apr, [facility] [address] [id number] [address] [place] [address], [place] [address] 06 Apr, 2014 [facility] [address] [id number] [address] [place] [address], [place] [address] 16 Mar, 2014 [facility] [address] [id number] [address] [place] [id number] 16 Mar, 2014 [facility] [address] [id number] [address] [place] [address], [place] [address] Feb, [facility] [address] [id number] [address] [place] [address], [place] [address] Feb, [facility] [address] [id number] [address] [place] [address], [place] [address] Feb, [facility] [address] [id number] [address] [place] [address], [place] [address] Dec, [facility] [address] [id number] [address] [place] [address], [place] [address] Dec, [facility] [address] [id number] [address] [place] [address], [place] [address] Nov, [facility] [address] [id number] [address] [place] [address], [place] [address] Nov, [facility] [address] [id number] [address] [place] [address], [place] [address] Nov, [facility] [address] [id number] [address] [place] [address], [place] [address] Nov, [facility] [address] [id number] [address] [place] [address], [place] [address] Sep, [facility] [address] [id number] [address] [place] [address], [place] [address] Sep, [facility] [address] [id number] [address] [place] [address] Sep, [facility] [address] [id number] [address] [place] [address], [place] [address] Sep, [facility] [address] [id number] [address] [place] [address], [place] [address] Aug, [facility] [address] [id number] [address] [place] [address], [place] [address] Aug, [facility] [address] [id number] [facility] [place] [address] Aug, [facility] [address] [id number] [facility] [place] [address] Aug, [facility] [address] [id number] [address] [place] [address], [place] [address] July, [facility] [address] [id number] [address] [place] [address], [place] [address] July, [facility] [address] [id number] [address] [place] [address], [place] [address] Jun, [facility] [address] [id number] [address] [place] [address], [place] [address] Jun, [facility] [address] [id number] [address] [place] [address], [place] [address] Jun, [facility] [address] [id number] [address] [place] [address], [place] [address] Jun, [facility] [address] [id number] [address] [place] [address], [place] [address] Jun, [facility] [address] [id number] [address] [place] [address], [place] [address] Jun, [facility] [address] [id number] [address] [place] [address], [place] [address] Jun, [facility] [address] [id number] [address] [place] [address], [place] [address] Jun, [facility] [address] [id number] [address] [place] [address], [place] [address] May, [facility] [address] [id number] [address] [place] [address], [place] [address] May, [facility] [address] [id number] [address] [place] [address], [place] [address] May, [facility] [address] [id number] [address] [place] [address], [place] [address] May, [facility] [address] [id number] [address] [place] [address], [place] [address] May, [facility] [address] [id number] [address] [place] [address], [place] [address] May, [facility] [address] [id number] [address] [place] [address], [place] [address] Apr, [facility] [address] [id number] [address] [place] [address], [place] [address] Apr, [facility] [address] [id number] [address] [place] [address], [place] [address] Apr, [facility] [address] [id number] [address] [place] [address], [place] [address] Apr, [facility] [address] [id number] [address] [place] [address], [place] [address] Mar, [facility] [address] [id number] [address] [place] [address], [place] [address] Mar, [facility] [address] [id number] [address] [place] [address], [place] [address] Mar, [facility] [address] [id number] [address] [place] [address], [place] [address] Mar, [facility] [address] [id number] [address] [place] [address], [place] [address] Mar, [facility] [address] [id number] [address] [place] [address], [place] [address] Mar, [facility] [address] [id number] [address] [place] [address], [place] [address] Feb, [facility] [address] [id number] [address] [place] [address], [place] [address] Feb, [facility] [address] [id number] [address] [place] [address], [place] [address] Feb, [facility] [address] [id number] [address] [place] [address], [place] [address] Feb, [facility] [address] [id number] [address] [place] [address], [place] [address] Feb, [facility] [address] [id number] [address] [place] [address], [place] [address] Feb, [facility] [address] [id number] [address] [place] [address], [place] [address] Feb, [facility] [address] [id number] [address] [place] [address], [place] [address] Feb, [facility] [address] [id number] [address] [place] [address], [place] [address] Feb, [facility] [address] [id number] [address] [place] [address], [place] [address] Feb, [facility] [address] [id number] [address] [place] [address], [place] [address] Feb, [facility] [address] [id number] [address] [place] [address], [place] [address] Feb, [facility] [address] [id number] [address] [place] [address], [place] [address] Jan, [facility] [address] [id number] [address] [place] [address], [place] [address] Jan, [facility] [address] [id number] [address] [place] [address], [place] [address] Jan, [facility] [address] [id number] [address] [place] [address], [place] [address] Jan, [facility] [address] [id number] [address] [place] [address], [place] [address] Jan, [facility] [address] [id number] [address] [place] [address], [place] [address] Jan, [facility] [address] [id number] [address] [place] [address], [place] [address] Jan, [facility] [address] [id number] [address] [place] [address], [place] [address] Jan, [facility] [address] [id number] [address] [place] [address], [place] [address] Jan, [facility] [address] [id number] [address] [place] [address], [place] [address] Jan, [facility] [address] [id number] [address] [place] [address], [place] [address] Dec, [facility] [address] [id number] [address] [place] [address], [place] [address] Dec, [facility] [address] [id number] [address] [place] [address], [place] [address] Nov, [facility] [address] [id number] [address] [place] [address], [place] [address] Nov, [facility] [address] [id number] [address] [place] [address], [place] [address] Nov, [facility] [address] [id number] [address] [place] [address], [place] [address] 05 Nov, 2012 [facility] [address] [id number] [address] [place] [address], [place] [address] Nov, [facility] [address] [id number] [address] [place] [address], [place] [address] Oct, [facility] [address] [id number] [address] [place] [address] Oct, [facility] [address] [id number] [address] [place] [address], [place] [address] Oct, [facility] [address] [id number] [address] [place] [address], [place] [address] Oct, [facility] [address] [id number] [address] [place] [address] Oct, [facility] [address] [id number] [address] [place] [address] Sep, [facility] [address] [id number] [address] [place] [address], [place] [address] Sep, [facility] [address] [id number] [address] [place] [address], [place] [address] Sep, [facility] [address] [id number] [address] [place] [address], [place] [address] Sep, [facility] [address] [id number] [address] [place] [address], [place] [address] Sep, [facility] [address] [id number] [address] [place] [address], [place] [address] Sep, [facility] [address] [id number] [address] [place] [address], [place] [address] Aug, [facility] [address] [id number] [address] [place] [address], [place] [address] Aug, [facility] [address] [id number] [address] [place] [address], [place] [address] July, [facility] [address] [id number] [address] [place] [address], [place] [address] July, [facility] [address] [id number] [address] [place] [address], [place] [address] July, [facility] [address] [id number] [address] [place] [address], [place] [address] Jun, [facility] [address] [id number] [address] [place] [address], [place] [address] 18 Jun, 2012 [facility] [address] [id number] [address] [place] [address], [place] [address] 16 Jun, 2012 [facility] [address] [id number] [address] [place] [address], [place] [address] Jun, [facility] [address] [id number] [address] [place] [address], [place] [address] May, [facility] [address] [id number] [address] [place] [address], [place] [address] May, [facility] [address] [id number] [address] [place] [address], [place] [address] Apr, [facility] [address] [id number] [address] [place] [address], [place] [address] Apr, [facility] [address] [id number] [address] [place] [address], [place] [address] Apr, [facility] [address] [id number] [address] [place] [address], [place] [address] Apr, [facility] [address] [id number] [address] [place] [address], [place] [address] Apr, [facility] [address] [id number] [address] [place] [address], [place] [address] Apr, [facility] [address] [id number] [address] [place] [id number] Apr, [facility] [address] [id number] [address] [place] [address], [place] [address] Apr, [facility] [address] [id number] [address] [place] [address] Mar, [facility] [address] [id number] [address] [place] [address] Mar, [facility] [address] [id number] [address] [place] [id number] Mar, [facility] [address] [id number] [address] [place] [address], [place] [address] Mar, [facility] [address] [id number] [address] [place] [address], [place] [address] Jan, [facility] [address] [id number] [address] [place] [address] Jan, [facility] [address] [id number] [address] [place] [address] Jan, [facility] [address] [id number] [address] [place] [address], [place] [address] Jan, [facility] [address] [id number] [address] [place] [address], [place] [address] Jan, [facility] [address] [id number] [address] [place] [address], [place] [address] Dec, [facility] [address] [id number] [address] [place] [address], [place] [address] Dec, [facility] [address] [id number] [address] [place] [address], [place] [address] Dec, [facility] [address] [id number] [address] [place] [address], [place] [address] Dec, [facility] [address] [id number] [address] [place] [address], [place] [address] Nov, [facility] [address] [id number] [address] [place] [address], [place] [address] Oct, [facility] [address] [id number] [address] [place] [address], [place] [address] Oct, [facility] [address] [id number] [address] [place] [address], [place] [address] Oct, [facility] [address] [id number] [address] [place] [address], [place] [address] Oct, [facility] [address] [id number] [address] [place] [address], [place] [address] Oct, [facility] [address] [id number] [address] [place] [address], [place] [address] Sep, [facility] [address] [id number] [address] [place] [address], [place] [address] Sep, [facility] [address] [id number] [address] [place] [address], [place] [address] Aug, [facility] [address] [id number] [address] [place] [address], [place] [address] 23 Aug, 2011 [facility] [address] [id number] [address] [place] [address], [place] [address] Aug, [facility] [address] [id number] [address] [place] [address], [place] [address] Aug, [facility] [address] [id number] [address] [place] [address], [place] [address] July, [facility] [address] [id number] [address] [place] [address], [place] [address] Jun, [facility] [address] [id number] [address] [place] [address], [place] [address] May, [facility] [address] [id number] [address] [place] [address], [place] [address] May, [facility] [address] [id number] [address] [place] [address], [place] [address] May, [facility] [address] [id number] [address] [place] [address], [place] [id number] Mar, [facility] [address] [id number] [address] [place] [address], [place] [address] Feb, [facility] [address] [id number] [address] [place] [address], [place] [id number] Feb, [facility] [address] [id number] [address] [place] [address], [place] [id number] Jan, [facility] [address] [id number] [address] [place] [address], [place] [id number] Jan, [facility] [address] [id number] [address] [place] [address], [place] [address] Jan, [facility] [address] [id number] [address] [place] [address], [place] [address] Jan, [facility] [address] [id number] [address] [place] [address], [place] [id number] Jan, [facility] [address] [facility] [id number] [address] [place] [id number] Dec, [facility] [address] [facility] [id number] [address] [place] [id number] Dec, [facility] [address] [facility] [id number] [address] [place] [id number] Dec, [facility] [address] [facility] [id number] [address] [place] [id number] May, [facility] [address] [facility] [id number] [address] [place] [id number] May, [facility] [address] [facility] [id number] [address] [place] [id number] Apr, [facility] [address] [facility] [id number] [address] [place] [id number] Jan, [facility] [address] [facility] [id number] [address] [place] [id number] Apr, IMMUNIZATIONS No Known Immunizations SOCIAL HISTORY [...] for cancer Hospitalization History surgeries Hospitalization History [facility] ER, heart- kidney- Stayed a t [facility] ICU 12/2017 [facility] History [facility] 03/2018 Hospitalization History [facility]- Stroke 2 weeks 06/2018 Hospitalization History ER 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
--- OUTSIDE RECORDS SUMMARY | 2019-10-19 08:30 | XMS REPORT ---
Author Author Eugenio LINDA [facility] Address [address] [place] [address] Care Team Providers Care Shipping Supervisor Name Role Phone EUGENIO LINDA Unavailable PROBLEMS Type Condition ICD9-CM Code LES78-XO Code Onset Dates Condition S tatus SNOMED Code Problem Other chronic pain G89.29 Active 8 8156847 Problem Other organ or system involvement in systemic julito pus erythematosus M32.19 Active 95476154 Problem Mixed hyperlipidemia E78.2 Active 335520010 Problem Asymptomatic menopausal state Z78.0 Active 42174992 Problem Anxiety F41.9 Active 93436556 Problem Right renal artery stenosis I70.1 Ac tive 12217088742319815 Problem Episode of recurrent major d epressive disorder, unspecified depression episode severity F33.9 Active 085553576 Problem Non-pressure chronic ulcer o f other part of unspecified foot limited to breakdown of skin L97.501 Active 425073969 Problem Other chronic pain G89.29 Active 8 2412806 Problem Non-pressure chronic ulcer o f other part of unspecified foot limited to breakdown of skin L97.501 Active 322619710 Problem Urinary frequency R35.0 Active 16 3211565 Problem Acute right-sided low back pain with right-sided sciatica M54.41 Active 811605169 Problem Lumbago with sciatica, right side M54.41 Active 326435130 Problem 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 51867224 Problem Sialoadenitis, unspecified K11.20 Act gulshan 18344900 Problem Cerebrovascular accident (CV A) due to occlusion of other cerebral artery I63.59 Active 343364662 Problem Sciatica M54.30 Active 39770686 Problem 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.01 Active 512279220 Problem Systolic congestive heart failure, unspecified HF chronici ty I50.20 Active 68504679 Problem Unsteady gait R26.81 Active 111325 008 Problem Seborrheic keratoses L82.1 Active 474606722 Problem Frequent falls R29.6 Active 85280 2002 Problem HILARIO (obstructive sleep apnea) G47.33 Active 40564207 Problem Necrosis I96 Active 112924181 Problem 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 Active 826901821 Problem Gangrene I96 Active 805725226 Problem Hepatitis C B19.20 Active 87781867 Problem Type 2 diabetes mellitus with foot ulcer E11.621 Active 497874477341535 Problem Type 2 diabetes mellitus with foot ulcer E11.621 Active 340276353903735 Problem Arterial insufficiency of lower extremity I73.9 Active 985224794106814 Problem Cardiomyopathy of undetermined type I42.9 Active 02778689 Problem Chronic anticoagulation Z79.01 Active 809558663 Problem Atherosclerosis of renal artery I70.1 Active 560014205976289 Problem Systemic lupus erythematosus , unspecified SLE type, unspecified organ involvement status M32.9 Active 30012762 Problem prison 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 Z79 .01 Active 262609306 Problem Ventricular tachycardia I47.2 Active 96330651 Problem Current moderate episode of major depressive disorder without prior episode F32.1 Active 16168459 Problem Body mass index (BMI) 29.0-29.9, adult Z68.29 Active 169819543 Problem Hypertension I10 Active 8336358 3 ALLERGIES No Information ENCOUNTERS Encounter Location Date Diagnosis [facility] [address] [address] Jun, [facility] [address] [address] May, [facility] [address] [address] 03 May, 2019 Other chronic pain G89.29 [facility] [address] [address] 20 Apr, 2019 Atherosclerosis of renal artery I70.1 ; Cardiomyopathy of undetermined type I42.9 and Ventricular tachycardia I47.2 [facility] [address] [address] 14 Apr, 2019 [facility] [address] [facility] [id number] [address] [place] [address] 11 Apr, 2019 Non-intractable vomiting wit h nausea, unspecified vomiting type R11.2 [place] [address] [address] 03 Apr, 2019 Other chronic pain G89.29 [place] [address] [address] Mar, Other chronic pain G89.29 [place] [address] [address] Feb, Renal insufficiency N28.9 [place] [address] [address] Feb, [place] [address] [address] Feb, Frequent headaches R51 and Hypertension I10 [place] [address] [address] Feb, Other chronic pain G89.29 [place] [address] [address] Jan, Encounter for Medicare annual wellness e [...] episode F32.1 and Encounter for immunization Z23 [place] [address] [address] Jan, [place] [address] [address] Jan, Other chronic pain G89.29 [place] [address] [address] Dec, [place] [address] [address] Dec, Hypokalemia E87.6 [place] [address] [address] 15 Dec, 2018 Nausea R11.0 [place] [address] [address] 14 Dec, 2018 Other chronic pain G89.29 [place] [address] [address] Dec, Systolic congestive heart failure, unspe cified HF chronicity I50.20 and Ventricular tachycardia I47.2 [place] [address] [address] 08 Dec, 2018 [place] [address] [address] 17 Nov, 2018 Other chronic pain G89.29 [place] [address] [address] 04 Nov, 2018 Nausea with vomiting, unspecified R11.2 [place] [address] [address] Oct, [place] [address] [address] Oct, Other chronic pain G89.29 [place] [address] [address] Oct, [address] [address] Oct, Arterial insufficiency of lower extremit y I73.9 and High risk medication use Z79.899 [facility] [address] [place] [id number] [address] [place] [address] Oct, Type 2 diabetes mellitus wit h foot ulcer E11.621 and Non-pressure chronic ulcer of other part of unspecified foot limited to breakdown of skin L97.501 [facility] [address] [place], [place] [id number] [address] [place] [address] Oct, Gangrene I96 [place] [address] [address] Sep, Other chronic pain G89.29 [place] [address] [address] Sep, Status post CVA Z86.73 ; Unsteady gait R 26.81 and Frequent falls R29.6 [place] [address] [address] Sep, Nausea with vomiting, unspecified R11.2 [place] [address] [address] Sep, Other chronic pain G89.29 [place] [address] [address] Aug, [place] [address] [address] Aug, Other chronic pain G89.29 [place] [address] [address] July, prison current use of anticoagulant Z 79.01 and Cerebrovascular accident (CVA) due to occlusion of other cerebral artery I63.[address] [address] July, Renal insufficiency N28.9 [place] [address] [address] July, Cerebrovascular accident (CVA) due to oc clusion of other cerebral artery I63.59 and Unexplained weight loss R63.4 [place] [address] [address] July, [place] [address] [address] July, [address] [address] July, Unexplained weight loss R63.4 and Long t erm current use of anticoagulant Z79.01 [place] [address] [address] July, Other chronic pain G89.29 [place] [address] [address] Jun, Other chronic pain G89.29 [place] [address] [address] May, Unexplained weight loss R63.4 [place] [address] [address] May, Nausea with vomiting, unspecified R11.2 [place] [address] [address] May, Non-recurrent acute suppurative otitis m edia of right ear without spontaneous rupture of tympanic membrane H66.001 and Chronic anticoagulation Z79.01 [place] [address] [address] May, Other chronic pain G89.29 [facility] [address] [facility] [id number] [address] [place] [address] Apr, Skin tear of right forearm w ithout complication, initial encounter S51.811A ; Skin tear of left forearm without complication, initial encounter S51.812A and Encounter for immunization Z23 [place] [address] [address] Apr, [place] [address] [address] Apr, Diarrhea, unspecified R19.7 ; Nausea wit h vomiting, unspecified R11.2 and 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 [place] [address] [address] 05 Apr, 2018 Other chronic pain G89.29 [place] [address] [address] Mar, Other chronic pain G89.29 [facility] [address] [place] [id number] [place] [address] Mar, Other chronic pain G89.29 [facility] [address] [address] Mar, [facility] [address] [address] Mar, Other organ or system involvement in sys temic lupus erythematosus M32.19 [place] [address] [address] Mar, Non-recurrent acute suppurative otitis m edia of right ear without spontaneous rupture of tympanic membrane H66.001 and Chronic anticoagulation Z79.01 [facility] [address] [facility] [id number] [address] [place] [address] Feb, Sialoadenitis, unspecified K 11.20 [place] [address] [address] Feb, Other chronic pain G89.29 [place] [address] [address] Jan, learning and 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 administrator 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 use of anticoagulant t herapy Z79.01 [place] [address] [address] Jan, Other chronic pain G89.29 ; Lumbago with sciatica, right side M54.41 ; Other chronic pain G89.29 ; Tobacco abuse Z72.0 ; Tobacco abuse counseling Z71.6 ; Mixed hyperlipidemia E78.2 and prison 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 Z79.01 [place] [address] [address] Jan, [place] [address] [address] Dec, [place] [address] [address] Dec, [place] [address] [address] [id number] [place] [address] Dec, [facility] [address] [address] Dec, Mixed hyperlipidemia E78.2 ; Other chron [...] involvement in systemic lupus erythematosus M32.19 [facility] [address] [place] [id number] Dec, Right renal artery stenosis I70.1 ; Othe r organ or system involvement in systemic lupus erythematosus M32.19 ; Hepatitis C B19.20 ; Tobacco abuse Z72.0 and Weakness R53.1 [facility] [address] [place] [id number] Dec, [place] [address] [address] Dec, [place] [address] [address] Dec, Other organ or system involvement in sys temic lupus erythematosus M32.19 [facility] [address] [place] [id number] Dec, Right renal artery stenosis I70.1 ; Inju ry of right kidney, sequela S37.001S ; Tobacco abuse Z72.0 ; Systemic lupus erythematosus, unspecified SLE type, unspecified organ involvement status M32.9 ; Hepatitis C B19.20 and Candidiasis of female genitalia B37.3 [facility] [id number] [place] [address] Dec, Other organ or system involvement in sys temic lupus erythematosus M32.19 [facility] [address] [address] [id number] [place] [address] Dec, Other organ or system involvement in sys temic lupus erythematosus M32.19 [facility] [address] [address] [id number] [place] [address] Dec, [facility] [address] [address] [id number] [place] [address] Nov, Other organ or system involvement in sys temic lupus erythematosus M32.19 [facility] [address] [address] Oct, Other organ or system involvement in sys temic lupus erythematosus M32.19 [facility] [address] [address] Sep, Other organ or system involvement in sys temic lupus erythematosus M32.19 [facility] [address] [place] [id number] [place] [address] Aug, Anxiety F41.9 [facility] [address] [id number] [place] [address] Aug, Other organ or system involvement in sys temic lupus erythematosus M32.19 [facility] [address] [place] [id number] [place] [address] July, Medicare annual wellness visit, initial Z00.00 ; Anxiety F41.9 ; HILARIO (obstructive sleep apnea) G47.33 ; Hepatitis C B19.20 ; Other chronic pain G89.29 ; Asymptomatic menopausal state Z78.0 and Episode of recurrent major depressive disorder, unspecified depression episode severity F33.9 [facility] [id number] [place] [address] July, Anxiety F41.9 [facility] [address] [address] July, Other organ or system involvement in sys temic lupus erythematosus M32.19 [facility] [address] [id number] [place] [address] July, [facility] [address] [address] Jun, Other organ or system involvement in sys temic lupus erythematosus M32.19 ; BMI 40.0-44.9, adult Z68.41 ; Other chronic pain G89.29 and Controlled substance agreement signed Z79.899 [place] [address] [address] May, Sciatica M54.30 [place] [address] [address] Apr, Sciatica M54.30 [place] [address] [address] Mar, Sciatica M54.30 [place] [address] [address] Feb, Sciatica M54.30 [place] [address] [address] 15 Jan, 2017 Sciatica M54.30 [place] [address] [address] 14 Jan, 2017 Sciatica M54.30 [place] [address] [address] 19 Dec, 2016 Sciatica M54.30 [place] [address] [address] 18 Dec, 2016 Sciatica M54.30 [place] [address] [address] 29 Nov, 2016 Mixed hyperlipidemia E78.2 ; 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 and Family history of early CAD Z82.49 [place] [address] [address] 21 Nov, 2016 Sciatica M54.30 [place] [address] [address] 18 Nov, 2016 Mixed hyperlipidemia E78.2 ; 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 ; Family history of early CAD Z82.49 ; Other chronic pain G89.29 and Pain in left shoulder M25.512 [place] [address] [address] Nov, Acute pain of left shoulder M25.512 [place] [address] [address] Oct, Sciatica M54.30 [place] [address] [address] Oct, [place] [address] [address] Sep, Sciatica M54.30 [place] [address] [address] Sep, Acute pain of left shoulder M25.512 [place] [address] [address] Sep, Acute pain of left shoulder M25.512 [place] [address] [address] Aug, Sciatica M54.30 [place] [address] [address] Aug, Sciatica M54.30 ; Tobacco abuse Z72.0 an d Tobacco abuse counseling Z71.6 [place] [address] [address] Aug, Acute pain of left shoulder M25.512 [facility] [address] [facility] [id number] [address] [place] [address] Aug, Contusion of right shoulder, initial encounter S40.011A ; Acute pain of left shoulder M25.512 and Shortness of breath R06.02 [facility] [address] [address] Aug, Lumbago with sciatica, right side M54.41 [place] [address] [address] July, [facility] [address] [address] July, Lumbago with sciatica, right side M54.41 [place] [address] [address] Jun, Lumbago with sciatica, right side M54.41 [place] [address] [address] May, Lumbago with sciatica, right side M54.41 [facility] [address] [address] May, Herpes zoster without compli cation B02.9 [facility] [address] [address] May, Back pain M54.9 and Acute ri ght-sided low back pain with right-sided sciatica M54.41 [place] [address] [address] Apr, [place] [address] [address] Apr, Lumbago with sciatica, right side M54.41 and Other chronic pain G89.29 [place] [address] [address] Apr, [place] [address] [address] Mar, [place] [address] [address] Mar, [place] [address] [address] Feb, [facility] [address] [address] Jan, Urinary frequency R35.0 [place] [address] [place] [id number] [place] [address] Jan, [facility] [address] [address] Dec, [facility] [address] [address] Oct, [facility] [address] [address] Sep, [facility] [address] [place] [id number] [address] [place] [address] Sep, Foreign body in left foot, i nitial encounter S90.852A [facility] [address] [address] Aug, [facility] [address] [address] July, Sciatica M54.30 [facility] [address] [address] Jun, [facility] [address] [address] May, Osteoarthritis M19.90 [facility] [address] [address] May, [facility] [address] [address] May, Pain in right hip M25.551 [facility] [address] [facility] [id number] [address] [place] [address] May, Tinea corporis B35.4 [facility] [address] [address] 10 Apr, 2015 Pain in right hip M25.551 [facility] [address] [id number] [place] [address] Mar, Pain in right hip M25.551 [facility] [address] [address] Mar, [facility] [id number] [place] [address] Feb, Pain in right hip M25.551 [facility] [address] [id number] [place] [address] Jan, Acute bronchitis, unspecified organism J 20.9 and Cough R05 [facility] [address] [address] Jan, Pain in right hip M25.551 [facility] [address] [address] Dec, Pain in right hip M25.551 [facility] [address] [address] Nov, Acute bronchitis 466.0 [facility] [address] [address] Nov, [facility] [address] [id number] [place] [address] Oct, [facility] [address] [address] Sep, [facility] [address] [address] Aug, [facility] [address] [address] July, [facility] [id number] [place] [address] 14 Jun, 2014 [facility] [address] [address] Jun, [facility] [address] [address] May, [facility] [address] [address] 18 May, 2014 [facility] [address] [address] Apr, 2014 [facility] [address] [id number] [place] [address] Apr, 2014 [facility] [address] [id number] [place] [address] Apr, 2014 [facility] [address] [id number] [place] [address] Apr, 2014 [facility] [address] [id number] [place] [address] Apr, 2014 [facility] [address] [id number] [place] [address] Apr, 2014 [facility] [address] [id number] [place] [address] Mar, [facility] [address] [id number] [place] [address] Mar, [facility] [address] [id number] [place] [address] Feb, [facility] [address] [id number] [place] [address] Feb, [facility] [address] [id number] [place] [address] Feb, [facility] [address] [id number] [place] [address] Dec, [facility] [address] [id number] [place] [address] Dec, [facility] [address] [id number] [place] [address] Nov, 2013 [facility] [address] [id number] [place] [address] Nov, 2013 [facility] [address] [id number] [place] [address] Nov, 2013 [facility] [address] [id number] [place] [address] Nov, 2013 [facility] [address] [id number] [facility] [place] [address] Sep, [facility] [address] [id number] [place] [address] Sep, [facility] [address] [id number] [place] [address] Sep, [facility] [address] [id number] [place] [address] Sep, [facility] [address] [id number] [place] [address] Aug, [facility] [address] [id number] [place] [address] Aug, [facility] [address] [id number] [place] [address] Aug, [facility] [address] [id number] [place] [address] Aug, [facility] [address] [id number] [place] [address] July, [facility] [address] [id number] [place] [address] July, [facility] [address] [id number] [place] [address] Jun, [facility] [address] [id number] [place] [address] Jun, [facility] [address] [id number] [place] [address] Jun, [facility] [address] [id number] [place] [address] Jun, [facility] [address] [id number] [place] [address] Jun, [facility] [address] [id number] [place] [address] Jun, [facility] [address] [id number] [place] [address] Jun, [facility] [address] [facility] [id number] [place] [address] Jun, [facility] [address] [facility] [id number] [facility] [address] May, [facility] [address] [id number] [place] [address] May, [facility] [address] [id number] [place] [address] May, [facility] [address] [facility] [id number] [place] [address] May, [facility] [address] [id number] [place] [address] May, [facility] [address] [id number] [place] [address] May, [facility] [address] [id number] [place] [address] Apr, [facility] [address] [id number] [place] [address] Apr, [facility] [address] [id number] [place] [address] Apr, [facility] [address] [id number] [place] [address] Apr, [facility] [address] [id number] [place] [address] Mar, [facility] [place] [facility] [address] [id number] [place] [address] Mar, [facility] [place] [facility] [address] [id number] [place] [address] Mar, [facility] [place] [facility] [address] [id number] [place] [address] Mar, [facility] [place] [facility] [address] [id number] [place] [address] Mar, [facility] [place] [facility] [address] [id number] [place] [address] Mar, [facility] [address] [id number] [place] [address] Feb, [facility] [place] [facility] [address] [id number] [place] [address] Feb, [facility] [place] [facility] [address] [id number] [place] [address] Feb, [facility] [place] [facility] [address] [id number] [place] [address] Feb, [facility] [place] [facility] [address] [id number] [place] [address] Feb, [facility] [place] [facility] [address] [id number] [place] [address] Feb, [facility] [place] [facility] [address] [id number] [place] [address] Feb, [facility] [place] [facility] [address] [id number] [place] [address] Feb, [facility] [place] [facility] [address] [id number] [place] [address] Feb, [facility] [place] [facility] [address] [id number] [place] [address] Feb, [facility] [place] [facility] [address] [id number] [place] [address] Feb, [facility] [place] [facility] [address] [id number] [place] [address] Feb, [facility] [place] [facility] [address] [id number] [place] [address] Jan, [facility] [place] [facility] [id number] [place] [address] Jan, [facility] [place] [facility] [address] [id number] [place] [address] Jan, [facility] [place] [facility] [address] [id number] [place] [address] Jan, [facility] [place] [facility] [address] [id number] [place] [address] Jan, [facility] [place] [facility] [address] [id number] [place] [address] Jan, [facility] [place] [facility] [address] [id number] [place] [address] Jan, [facility] [place] [facility] [address] [id number] [place] [address] Jan, [facility] [place] [facility] [address] [id number] [place] [address] Jan, [facility] [place] [facility] [address] [id number] [place] [address] Jan, [facility] [place] [facility] [address] [id number] [place] [address] Dec, [facility] [place] [facility] [address] [id number] [place] [address] Dec, [facility] [place] [facility] [address] [id number] [place] [address] Nov, [facility] [place] [facility] [address] [id number] [place] [address] 25 Nov, 2012 [facility] [place] [facility] [address] [id number] [place] [address] 09 Nov, 2012 [facility] [place] [facility] [address] [id number] [place] [address] 05 Nov, 2012 [facility] [place] [facility] [address] [id number] [place] [address] Nov, [facility] [place] [facility] [address] [id number] [place] [address] Oct, [facility] [place] [facility] [address] [id number] [place] [address] Oct, [facility] [place] [facility] [address] [id number] [place] [address] Oct, [facility] [place] [facility] [address] [id number] [place] [address] Oct, [facility] [place] [facility] [address] [id number] [facility] [address] Oct, [facility] [place] [facility] [address] [facility] [id number] [facility] [address] Sep, [facility] [place] [facility] [address] [id number] [facility] [address] Sep, [facility] [place] [facility] [address] [id number] [facility] [place] [address] Sep, [facility] [place] [facility] [address] [facility] [id number] [facility] [address] Sep, [facility] [place] [facility] [address] [id number] [place] [address] Sep, [facility] [place] [facility] [address] [id number] [place] [address] Sep, [facility] [place] [facility] [address] [id number] [place] [address] Aug, [facility] [place] [facility] [address] [id number] [place] [address] Aug, [facility] [place] [facility] [address] [id number] [place] [address] July, [facility] [place] [facility] [address] [id number] [place] [address] July, [facility] [place] [facility] [address] [id number] [place] [address] July, [facility] [place] [facility] [address] [id number] [place] [address] Jun, [facility] [place] [facility] [address] [id number] [place] [address] Jun, [facility] [place] [facility] [address] [id number] [place] [address] Jun, [facility] [place] [facility] [address] [id number] [place] [address] Jun, [facility] [place] [facility] [address] [id number] [place] [address] May, [facility] [place] [facility] [address] [id number] [place] [address] May, [facility] [place] [facility] [address] [id number] [place] [address] Apr, [facility] [place] [facility] [address] [id number] [place] [address] Apr, [facility] [place] [facility] [address] [id number] [place] [address] Apr, [facility] [place] [facility] [address] [id number] [place] [address] Apr, [facility] [place] [facility] [address] [id number] [place] [address] Apr, [facility] [place] [facility] [address] [id number] [place] [address] Apr, [facility] [place] [facility] [address] [facility] [id number] [place] [id number] Apr, [facility] [place] [facility] [address] [id number] [place] [address] Apr, [facility] [place] [facility] [address] [id number] [place] [address] Mar, [facility] [place] [facility] [address] [id number] [place] [address] Mar, [facility] [place] [facility] [address] [id number] [place] [address] Mar, [facility] [place] [facility] [address] [id number] [place] [address] Mar, [facility] [place] [facility] [address] [id number] [place] [address] Jan, [facility] [place] [facility] [address] [id number] [place] [address] Jan, [facility] [place] [facility] [address] [id number] [place] [address] Jan, [facility] [place] [facility] [address] [id number] [place] [address] Jan, [facility] [place] [facility] [address] [id number] [place] [address] Jan, [facility] [place] [facility] [address] [id number] [place] [address] Dec, [facility] [place] [facility] [address] [id number] [place] [address] Dec, [facility] [place] [facility] [address] [id number] [place] [address] Dec, [facility] [place] [facility] [address] [id number] [place] [address] Dec, [facility] [place] [facility] [address] [id number] [place] [address] Nov, [facility] [place] [facility] [address] [id number] [place] [address] Oct, [facility] [place] [facility] [address] [id number] [place] [address] Oct, [facility] [place] [facility] [address] [id number] [place] [address] Oct, [facility] [place] [facility] [address] [id number] [place] [address] Oct, [facility] [place] [facility] [address] [id number] [place] [address] Oct, [facility] [place] [facility] [address] [id number] [place] [address] Sep, [facility] [place] [facility] [address] [id number] [place] [address] Sep, [facility] [place] [facility] [address] [id number] [place] [address] Aug, [facility] [place] [facility] [address] [id number] [place] [address] Aug, [facility] [place] [facility] [address] [id number] [place] [address] Aug, [facility] [place] [facility] [address] [id number] [place] [address] Aug, [facility] [place] [facility] [address] [id number] [place] [address] July, [facility] [place] [facility] [address] [id number] [place] [address] Jun, [facility] [place] [facility] [address] [id number] [place] [address] May, [facility] [place] [facility] [address] [id number] [place] [address] May, [facility] [place] [facility] [address] [id number] [place] [address] May, [facility] [place] [facility] [address] [id number] [place] [address] Mar, [facility] [place] [facility] [address] [id number] [place] [address] Feb, [facility] [place] [facility] [address] [id number] [place] [address] Feb, [facility] [place] [facility] [address] [id number] [place] [address] Jan, [facility] [place] [facility] [address] [id number] [place] [address] Jan, [facility] [place] [facility] [address] [id number] [place] [address] Jan, [facility] [place] [facility] [address] [id number] [place] [address] Jan, [facility] [place] [facility] [address] [id number] [place] [address] 30 Jan, 2010 [facility] [place] [facility] [address] [id number] [place] [address] 20 Dec, 2009 [facility] [place] [facility] [address] [id number] [place] [address] 13 Dec, 2009 [facility] [place] [facility] [address] [id number] [place] [address] 13 Dec, 2009 [facility] [address] [id number] [place] [address] 18 May, 2009 [facility] [address] [id number] [place] [address] 15 May, 2009 [facility] [address] [id number] [place] [address] Apr, [facility] [address] [id number] [place] [address] Jan, [facility] [address] [id number] [place] [address] Apr, IMMUNIZATIONS No Known Immunizations SOCIAL HISTORY [...] for cancer Hospitalization History surgeries Hospitalization History [facility] ER, heart- kidney[facility] Stayed a t [facility] ICU 12/2017 Hospitalization History [facility] ER 03/2018 Hospitalization History [facility]- Stroke 2 weeks 06/2018 Hospitalization History ER 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
--- OUTSIDE RECORDS SUMMARY | 2019-10-19 08:31 | XMS REPORT ---
Author Author Eugenio LINDA [facility] Address [address] [place] [address] Care Team Providers [employer] Name Role Phone EUGENIO LINDA Unavailable PROBLEMS Type Condition ICD9-CM Code [id number] Code Onset Dates Condition S tatus SNOMED Code Problem Other chronic pain G89.29 Active 8 9775575 Problem Other organ or system involvement in systemic jultio pus erythematosus M32.19 Active 81576115 Problem Mixed hyperlipidemia E78.2 Active 283842339 Problem Asymptomatic menopausal state Z78.0 Active 53378257 Problem Anxiety F41.9 Active 31622979 Problem Right renal artery stenosis I70.1 Ac tive [id number] Problem Episode of recurrent major d epressive disorder, unspecified depression episode severity F33.9 Active 911656210 Problem Non-pressure chronic ulcer o f other part of unspecified foot limited to breakdown of skin L97.501 Active 482805985 Problem Other chronic pain G89.29 Active 8 4390267 Problem Non-pressure chronic ulcer o f other part of unspecified foot limited to breakdown of skin L97.501 Active 215611365 Problem Urinary frequency R35.0 Active 16 4954826 Problem Acute right-sided low back pain with right-sided sciatica M54.41 Active 304846962 Problem Lumbago with sciatica, right side M54.41 Active 551093997 Problem 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 81503000 Problem Sialoadenitis, unspecified K11.20 Act gulshan 17742961 Problem Cerebrovascular accident (CV A) due to occlusion of other cerebral artery I63.59 Active 362170321 Problem Sciatica M54.30 Active 38811314 Problem 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 Active 197520240 Problem Systolic congestive heart failure, unspecified HF chronici ty I50.20 Active 21431916 Problem Unsteady gait R26.81 Active 204736 008 Problem Seborrheic keratoses L82.1 Active 418165117 Problem Frequent falls R29.6 Active 98821 2002 Problem HILARIO (obstructive sleep apnea) G47.33 Active 11684046 Problem Necrosis I96 Active 091090099 Problem 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 Active 459631123 Problem Gangrene I96 Active 217642270 Problem Hepatitis C B19.20 Active 50575271 Problem Type 2 diabetes mellitus with foot ulcer E11.621 Active 349772418212985 Problem Type 2 diabetes mellitus with foot ulcer E11.621 Active 371342694199009 Problem Arterial insufficiency of lower extremity I73.9 Active 430509109484109 Problem Cardiomyopathy of undetermined type I42.9 Active 86954413 Problem Chronic anticoagulation Z79.01 Active 809113166 Problem Atherosclerosis of renal artery I70.1 Active 985071439589876 Problem Systemic lupus erythematosus , unspecified SLE type, unspecified organ involvement status M32.9 Active 58955052 Problem [facility] 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 Z79 .01 Active 415038544 Problem Ventricular tachycardia I47.2 Active 91338726 Problem Current moderate episode of major depressive disorder without prior episode F32.1 Active 39703915 Problem Body mass index (BMI) 29.0-29.9, adult Z68.29 Active 181736087 Problem Hypertension I10 Active 5443701 3 ALLERGIES No Information ENCOUNTERS Encounter Location Date Diagnosis [facility] [address] [address] May, [facility] [address] [address] 16 May, 2019 [facility] [address] [address] 03 May, 2019 Other chronic pain G89.29 [facility] [address] [address] 20 Apr, 2019 Atherosclerosis of renal artery I70.1 ; Cardiomyopathy of undetermined type I42.9 and Ventricular tachycardia I47.2 [facility] [address] [address] 14 Apr, 2019 [facility] [address] [facility] [id number] [address] [place] [address] 11 Apr, 2019 Non-intractable vomiting wit h nausea, unspecified vomiting type R11.2 [place] [address] [address] 03 Apr, 2019 Other chronic pain G89.29 [place] [address] [address] Mar, Other chronic pain G89.29 [place] [address] [address] Feb, Renal insufficiency N28.9 [place] [address] [address] Feb, [place] [address] [address] Feb, Frequent headaches R51 and Hypertension I10 [place] [address] [address] Feb, Other chronic pain G89.29 [place] [address] [address] Jan, Encounter for Medicare annual wellness e [...] episode F32.1 and Encounter for immunization Z23 [place] [address] [address] Jan, [place] [address] [address] Jan, Other chronic pain G89.29 [place] [address] [address] Dec, [place] [address] [address] Dec, Hypokalemia E87.6 [place] [address] [address] 15 Dec, 2018 Nausea R11.0 [place] [address] [address] 14 Dec, 2018 Other chronic pain G89.29 [place] [address] [address] Dec, Systolic congestive heart failure, unspe cified HF chronicity I50.20 and Ventricular tachycardia I47.2 [place] [address] [address] 08 Dec, 2018 [place] [address] [address] 17 Nov, 2018 Other chronic pain G89.29 [place] [address] [address] 04 Nov, 2018 Nausea with vomiting, unspecified R11.2 [place] [address] [address] Oct, [place] [address] [address] Oct, Other chronic pain G89.29 [place] [address] [address] Oct, [address] [address] Oct, Arterial insufficiency of lower extremit y I73.9 and High risk medication use Z79.899 [facility] [address] [place] [id number] [address] [place] [address] Oct, Type 2 diabetes mellitus wit h foot ulcer E11.621 and Non-pressure chronic ulcer of other part of unspecified foot limited to breakdown of skin L97.501 [facility] [address] [place], [place] [id number] [address] [place] [address] Oct, Gangrene I96 [place] [address] [address] Sep, Other chronic pain G89.29 [place] [address] [address] Sep, Status post CVA Z86.73 ; Unsteady gait R 26.81 and Frequent falls R29.6 [place] [address] [address] Sep, Nausea with vomiting, unspecified R11.2 [place] [address] [address] Sep, Other chronic pain G89.29 [place] [address] [address] Aug, [place] [address] [address] Aug, Other chronic pain G89.29 [place] [address] [address] July, [facility] current use of anticoagulant Z 79.01 and Cerebrovascular accident (CVA) due to occlusion of other cerebral artery I63.[address] [address] July, Renal insufficiency N28.9 [place] [address] [address] July, Cerebrovascular accident (CVA) due to oc clusion of other cerebral artery I63.59 and Unexplained weight loss R63.4 [place] [address] [address] July, [place] [address] [address] July, [address] [address] July, Unexplained weight loss R63.4 and Long t erm current use of anticoagulant Z79.01 [place] [address] [address] July, Other chronic pain G89.29 [place] [address] [address] Jun, Other chronic pain G89.29 [place] [address] [address] May, Unexplained weight loss R63.4 [place] [address] [address] May, Nausea with vomiting, unspecified R11.2 [place] [address] [address] May, Non-recurrent acute suppurative otitis m edia of right ear without spontaneous rupture of tympanic membrane H66.001 and Chronic anticoagulation Z79.01 [place] [address] [address] May, Other chronic pain G89.29 [facility] [address] 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 [place] [address] [address] 05 Apr, 2018 Other chronic pain G89.29 [place] [address] [address] Mar, Other chronic pain G89.29 [facility] [address] [place] [id number] [place] [address] Mar, Other chronic pain G89.29 [facility] [address] [address] Mar, [facility] [address] [address] Mar, Other organ or system involvement in sys temic lupus erythematosus M32.19 [place] [address] [address] Mar, Non-recurrent acute suppurative otitis m edia of right ear without spontaneous rupture of tympanic membrane H66.001 and Chronic anticoagulation Z79.01 [facility] [address] 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 t herapy Z79.01 [place] [address] [address] Jan, Other chronic pain G89.29 ; Lumbago with sciatica, right side M54.41 ; Other chronic pain G89.29 ; Tobacco abuse Z72.0 ; Tobacco abuse counseling Z71.6 ; Mixed hyperlipidemia E78.2 and [facility] 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 Z79.01 [place] [address] [address] Jan, [place] [address] [address] Dec, [place] [address] [address] Dec, [place] [id number] [place] [id number] [place] [address] Dec, [facility] [address] [address] Dec, Mixed hyperlipidemia E78.2 ; Other chron [...] involvement in systemic lupus erythematosus M32.19 [facility] [address] [place] [id number] Dec, Right renal artery stenosis I70.1 ; Othe r organ or system involvement in systemic lupus erythematosus M32.19 ; Hepatitis C B19.20 ; Tobacco abuse Z72.0 and Weakness R53.1 [facility] [address] [place] [id number] Dec, [place] [address] [address] Dec, [place] [address] [address] Dec, Other organ or system involvement in sys temic lupus erythematosus M32.19 [facility] [address] [place] [id number] Dec, Right renal artery stenosis I70.1 ; Inju ry of right kidney, sequela S37.001S ; Tobacco abuse Z72.0 ; Systemic lupus erythematosus, unspecified SLE type, unspecified organ involvement status M32.9 ; Hepatitis C B19.20 and Candidiasis of female genitalia B37.3 [facility] [address] [id number] [place] [address] Dec, Other organ or system involvement in sys temic lupus erythematosus M32.19 [facility] [address] [place] [id number] [place] [address] Dec, Other organ or system involvement in sys temic lupus erythematosus M32.19 [facility] [address] [place] [id number] [place] [address] Dec, [facility] [address] [place] [id number] [place] [address] Nov, Other organ or system involvement in sys temic lupus erythematosus M32.19 [facility] [address] [address] Oct, Other organ or system involvement in sys temic lupus erythematosus M32.19 [facility] [address] [address] Sep, Other organ or system involvement in sys temic lupus erythematosus M32.19 [facility] [address] [place] [id number] [place] [address] Aug, Anxiety F41.9 [facility] [address] [place] [id number] [place] [address] Aug, Other organ or system involvement in sys temic lupus erythematosus M32.19 [facility] [address] [place] [id number] [place] [address] July, Medicare annual wellness visit, initial Z00.00 ; Anxiety F41.9 ; HILARIO (obstructive sleep apnea) G47.33 ; Hepatitis C B19.20 ; Other chronic pain G89.29 ; Asymptomatic menopausal state Z78.0 and Episode of recurrent major depressive disorder, unspecified depression episode severity F33.9 [facility] [address] [place] [id number] [place] [address] July, Anxiety F41.9 [facility] [address] [address] July, Other organ or system involvement in sys temic lupus erythematosus M32.19 [facility] [address] [place] [id number] [place] [address] July, [facility] [address] [address] Jun, Other organ or system involvement in sys temic lupus erythematosus M32.19 ; BMI 40.0-44.9, adult Z68.41 ; Other chronic pain G89.29 and Controlled substance agreement signed Z79.899 [place] [address] [address] May, Sciatica M54.30 [place] [address] [address] Apr, Sciatica M54.30 [place] [address] [address] Mar, Sciatica M54.30 [place] [address] [address] Feb, Sciatica M54.30 [place] [address] [address] 15 Jan, 2017 Sciatica M54.30 [place] [address] [address] 14 Jan, 2017 Sciatica M54.30 [place] [address] [address] 19 Dec, 2016 Sciatica M54.30 [place] [address] [address] 18 Dec, 2016 Sciatica M54.30 [place] [address] [address] 29 Nov, 2016 Mixed hyperlipidemia E78.2 ; 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 and Family history of early CAD Z82.49 [place] [address] [address] 21 Nov, 2016 Sciatica M54.30 [place] [address] [address] 18 Nov, 2016 Mixed hyperlipidemia E78.2 ; 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 ; Family history of early CAD Z82.49 ; Other chronic pain G89.29 and Pain in left shoulder M25.512 [place] [address] [address] Nov, Acute pain of left shoulder M25.512 [place] [address] [address] Oct, Sciatica M54.30 [place] [address] [address] Oct, [place] [address] [address] Sep, Sciatica M54.30 [place] [address] [address] Sep, Acute pain of left shoulder M25.512 [place] [address] [address] Sep, Acute pain of left shoulder M25.512 [place] [address] [address] Aug, Sciatica M54.30 [place] [address] [address] Aug, Sciatica M54.30 ; Tobacco abuse Z72.0 an d Tobacco abuse counseling Z71.6 [place] [address] [address] Aug, Acute pain of left shoulder M25.512 [facility] [address] [facility] [id number] [address] [place] [address] Aug, Contusion of right shoulder, initial encounter S40.011A ; Acute pain of left shoulder M25.512 and Shortness of breath R06.02 [facility] [address] [address] Aug, Lumbago with sciatica, right side M54.41 [place] [address] [address] July, [facility] [address] [address] July, Lumbago with sciatica, right side M54.41 [place] [address] [address] Jun, Lumbago with sciatica, right side M54.41 [place] [address] [address] May, Lumbago with sciatica, right side M54.41 [facility] [address] [address] May, Herpes zoster without compli cation B02.9 [facility] [address] [address] May, Back pain M54.9 and Acute ri ght-sided low back pain with right-sided sciatica M54.41 [place] [address] [address] Apr, [place] [address] [address] Apr, Lumbago with sciatica, right side M54.41 and Other chronic pain G89.29 [place] [address] [address] Apr, [place] [address] [address] Mar, [place] [address] [address] Mar, [place] [address] [address] Feb, [facility] [address] [address] Jan, Urinary frequency R35.0 [place] [address] [id number] [place] [address] Jan, [facility] [address] [address] Dec, [facility] [address] [address] Oct, [facility] [address] [address] Sep, [facility] [address] [place] [id number] [place] [address] Sep, Foreign body in left foot, i nitial encounter S90.852A [facility] [address] [address] Aug, [facility] [address] [address] July, Sciatica M54.30 [facility] [address] [address] Jun, [facility] [address] [address] May, Osteoarthritis M19.90 [facility] [address] [address] May, [facility] [address] [address] May, Pain in right hip M25.551 [facility] [address] [facility] [id number] [address] [place] [address] May, Tinea corporis B35.4 [facility] [address] [address] 10 Apr, 2015 Pain in right hip M25.551 [facility] [address] [place] [id number] [place] [address] Mar, Pain in right hip M25.551 [facility] [address] [address] Mar, [facility] [address] [id number] [place] [address] Feb, Pain in right hip M25.551 [facility] [id number] [place] [address] Jan, Acute bronchitis, unspecified organism J 20.9 and Cough R05 [facility] [address] [address] Jan, Pain in right hip M25.551 [facility] [address] [address] Dec, Pain in right hip M25.551 [facility] [address] [address] Nov, Acute bronchitis 466.0 [facility] [address] [address] Nov, [facility] [id number] [place] [address] Oct, [facility] [address] [address] Sep, [facility] [address] [address] Aug, [facility] [address] [address] July, [facility] [id number] [place] [address] 14 Jun, 2014 [facility] [address] [address] Jun, [facility] [address] [address] May, [facility] [address] [address] 18 May, 2014 [facility] [address] [address] Apr, 2014 [facility] [address] [id number] [place] [address] Apr, 2014 [facility] [address] [id number] [place] [address] Apr, 2014 [facility] [address] [id number] [place] [address] Apr, 2014 [facility] [address] [id number] [place] [address] Apr, 2014 [facility] [address] [id number] [place] [address] Apr, 2014 [facility] [address] [id number] [place] [address] Mar, [facility] [address] [id number] [place] [address] Mar, [facility] [address] [id number] [place] [address] Feb, [facility] [address] [id number] [place] [address] Feb, [facility] [address] [id number] [place] [address] Feb, [facility] [address] [id number] [place] [address] Dec, [facility] [address] [id number] [place] [address] Dec, [facility] [address] [id number] [place] [address] Nov, 2013 [facility] [address] [id number] [place] [address] Nov, 2013 [facility] [address] [id number] [place] [address] Nov, 2013 [facility] [address] [id number] [place] [address] Nov, 2013 [facility] [address] [id number] [facility] [address] Sep, [facility] [address] [id number] [place] [address] Sep, [facility] [address] [id number] [place] [address] Sep, [facility] [address] [id number] [place] [address] Sep, [facility] [address] [id number] [place] [address] Aug, [facility] [address] [id number] [place] [address] Aug, [facility] [address] [id number] [place] [address] Aug, [facility] [address] [id number] [place] [address] Aug, [facility] [address] [id number] [place] [address] July, [facility] [address] [id number] [place] [address] July, [facility] [address] [id number] [place] [address] Jun, [facility] [address] [id number] [place] [address] Jun, [facility] [address] [id number] [place] [address] Jun, [facility] [address] [id number] [place] [address] Jun, [facility] [address] [id number] [place] [address] Jun, [facility] [address] [id number] [place] [address] Jun, [facility] [address] [id number] [place] [address] Jun, [facility] [address] [facility] [id number] [place] [address] Jun, [facility] [address] [facility] [id number] [facility] [place] [address] May, [facility] [address] [id number] [place] [address] May, [facility] [address] [id number] [place] [address] May, [facility] [address] [facility] [id number] [place] [address] May, [facility] [address] [id number] [place] [address] May, [facility] [address] [id number] [place] [address] May, [facility] [address] [id number] [place] [address] Apr, [facility] [address] [id number] [place] [address] Apr, [facility] [address] [id number] [place] [address] Apr, [facility] [address] [id number] [place] [address] Apr, [facility] [place] [facility] [address] [id number] [place] [address] Mar, [facility] [place] [facility] [address] [id number] [place] [address] Mar, [facility] [place] [facility] [address] [id number] [place] [address] Mar, [facility] [place] [facility] [address] [id number] [place] [address] Mar, [facility] [place] [facility] [address] [id number] [place] [address] Mar, [facility] [place] [facility] [address] [id number] [place] [address] Mar, [facility] [address] [id number] [place] [address] Feb, [facility] [place] [facility] [address] [id number] [place] [address] Feb, [facility] [place] [facility] [address] [id number] [place] [address] Feb, [facility] [place] [facility] [address] [id number] [place] [address] Feb, [facility] [place] [facility] [address] [id number] [place] [address] Feb, [facility] [place] [facility] [address] [id number] [place] [address] Feb, [facility] [place] [facility] [address] [id number] [place] [address] Feb, [facility] [place] [facility] [address] [id number] [place] [address] Feb, [facility] [place] [facility] [address] [id number] [place] [address] Feb, [facility] [place] [facility] [address] [id number] [place] [address] Feb, [facility] [place] [facility] [address] [id number] [place] [address] Feb, [facility] [place] [facility] [address] [id number] [place] [address] Feb, [facility] [place] [facility] [address] [id number] [place] [address] Jan, [facility] [place] [facility] [id number] [place] [address] Jan, [facility] [place] [facility] [address] [id number] [place] [address] Jan, [facility] [place] [facility] [address] [id number] [place] [address] Jan, [facility] [place] [facility] [address] [id number] [place] [address] Jan, [facility] [place] [facility] [address] [id number] [place] [address] Jan, [facility] [place] [facility] [address] [id number] [place] [address] Jan, [facility] [place] [facility] [address] [id number] [place] [address] Jan, [facility] [place] [facility] [address] [id number] [place] [address] Jan, [facility] [place] [facility] [address] [id number] [place] [address] Jan, [facility] [place] [facility] [address] [id number] [place] [address] Dec, [facility] [place] [facility] [address] [id number] [place] [address] Dec, [facility] [place] [facility] [address] [id number] [place] [address] Nov, [facility] [place] [facility] [address] [id number] [place] [address] 25 Nov, 2012 [facility] [place] [facility] [address] [id number] [place] [address] 09 Nov, 2012 [facility] [place] [facility] [address] [id number] [place] [address] 05 Nov, 2012 [facility] [place] [facility] [address] [id number] [place] [address] Nov, [facility] [place] [facility] [address] [id number] [place] [address] Oct, [facility] [place] [facility] [address] [id number] [place] [address] Oct, [facility] [place] [facility] [address] [id number] [place] [address] Oct, [facility] [place] [facility] [address] [id number] [place] [address] Oct, [facility] [place] [facility] [address] [id number] [facility] [place] [address] Oct, [facility] [place] [facility] [address] [facility] [id number] [facility] [place] [address] Sep, [facility] [place] [facility] [address] [id number] [facility] [place] [address] Sep, [facility] [place] [facility] [address] [id number] [facility] [place] [address] Sep, [facility] [place] [facility] [address] [facility] [id number] [facility] [place] [address] Sep, [facility] [place] [facility] [address] [id number] [place] [address] Sep, [facility] [place] [facility] [address] [id number] [place] [address] Sep, [facility] [place] [facility] [address] [id number] [place] [address] Aug, [facility] [place] [facility] [address] [id number] [place] [address] Aug, [facility] [place] [facility] [address] [id number] [place] [address] July, [facility] [place] [facility] [address] [id number] [place] [address] July, [facility] [place] [facility] [address] [id number] [place] [address] July, [facility] [place] [facility] [address] [id number] [place] [address] Jun, [facility] [place] [facility] [address] [id number] [place] [address] Jun, [facility] [place] [facility] [address] [id number] [place] [address] Jun, [facility] [place] [facility] [address] [id number] [place] [address] Jun, [facility] [place] [facility] [address] [id number] [place] [address] May, [facility] [place] [facility] [address] [id number] [place] [address] May, [facility] [place] [facility] [address] [id number] [place] [address] Apr, [facility] [place] [facility] [address] [id number] [place] [address] Apr, [facility] [place] [facility] [address] [id number] [place] [address] Apr, [facility] [place] [facility] [address] [id number] [place] [address] Apr, [facility] [place] [facility] [address] [id number] [place] [address] Apr, [facility] [place] [facility] [address] [id number] [place] [address] Apr, [facility] [place] [facility] [address] [facility] [id number] [place] [id number] Apr, [facility] [place] [facility] [address] [id number] [place] [address] Apr, [facility] [place] [facility] [address] [id number] [place] [address] Mar, [facility] [place] [facility] [address] [id number] [place] [address] Mar, [facility] [place] [facility] [address] [id number] [place] [address] Mar, [facility] [place] [facility] [address] [id number] [place] [address] Mar, [facility] [place] [facility] [address] [id number] [place] [address] Jan, [facility] [place] [facility] [address] [id number] [place] [address] Jan, [facility] [place] [facility] [address] [id number] [place] [address] Jan, [facility] [place] [facility] [address] [id number] [place] [address] Jan, [facility] [place] [facility] [address] [id number] [place] [address] Jan, [facility] [place] [facility] [address] [id number] [place] [address] Dec, [facility] [place] [facility] [address] [id number] [place] [address] Dec, [facility] [place] [facility] [address] [id number] [place] [address] Dec, [facility] [place] [facility] [address] [id number] [place] [address] Dec, [facility] [place] [facility] [address] [id number] [place] [address] Nov, [facility] [place] [facility] [address] [id number] [place] [address] Oct, [facility] [place] [facility] [address] [id number] [place] [address] Oct, [facility] [place] [facility] [address] [id number] [place] [address] Oct, [facility] [place] [facility] [address] [id number] [place] [address] Oct, [facility] [place] [facility] [address] [id number] [place] [address] Oct, [facility] [place] [facility] [address] [id number] [place] [address] Sep, [facility] [place] [facility] [address] [id number] [place] [address] Sep, [facility] [place] [facility] [address] [id number] [place] [address] Aug, [facility] [place] [facility] [address] [id number] [place] [address] Aug, [facility] [place] [facility] [address] [id number] [place] [address] Aug, [facility] [place] [facility] [address] [id number] [place] [address] Aug, [facility] [place] [facility] [address] [id number] [place] [address] July, [facility] [place] [facility] [address] [id number] [place] [address] Jun, [facility] [place] [facility] [address] [id number] [place] [address] May, [facility] [place] [facility] [address] [id number] [place] [address] May, [facility] [place] [facility] [address] [id number] [place] [address] May, [facility] [place] [facility] [address] [id number] [place] [address] Mar, [facility] [place] [facility] [address] [id number] [place] [address] Feb, [facility] [place] [facility] [address] [id number] [place] [address] Feb, [facility] [place] [facility] [address] [id number] [place] [address] Jan, [facility] [place] [facility] [address] [id number] [place] [address] Jan, [facility] [place] [facility] [address] [id number] [place] [address] Jan, [facility] [place] [facility] [address] [id number] [place] [address] Jan, [facility] [place] [facility] [address] [id number] [place] [address] 30 Jan, 2010 [facility] [place] [facility] [address] [id number] [place] [address] 20 Dec, 2009 [facility] [place] [facility] [address] [id number] [place] [address] 13 Dec, 2009 [facility] [place] [facility] [address] [id number] [place] [address] 13 Dec, 2009 [facility] [address] [id number] [place] [address] 18 May, 2009 [facility] [address] [id number] [place] [address] 15 May, 2009 [facility] [address] [id number] [place] [address] Apr, [facility] [address] [id number] [place] [address] Jan, [facility] [address] [id number] [place] [address] Apr, IMMUNIZATIONS No Known Immunizations SOCIAL HISTORY Never Assessed REASON FOR VISIT PLAN OF CARE VITAL SIGNS Height 63 in 2013-04-19 Weight 217.3 lbs 2013-04-19 Temperature 97.4 degrees Fahrenheit 2013-04-19 Heart Rate 110 bpm 2013-04-19 Respiratory Rate 24 2013-04-19 Blood pressure systolic 178 mmHg 2013-04-19 Blood pressure diastolic 86 mmHg 2013-04-19 MEDICATIONS Unknown Medications RESULTS No Results PROCEDURES Procedure Date Ordered Result Body Site MEASURE BLOOD OXYGEN LEVEL Apr 19, 2013 INSTRUCTIONS MEDICATIONS ADMINISTERED No Known Medications [...] History [facility] ER, heart- kidney- Stayed a t [facility] ICU 12/2017 [facility]ization [facility] 03[facility]2018 Hospitalization History [facility]- Stroke 2 weeks 06/2018 Hospitalization History [facility] 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
--- OUTSIDE RECORDS SUMMARY | 2019-10-19 08:40 | XMS REPORT ---
Author Author Luanne Carvalho Doctor Organization [facility] Address Unknown Phone Unavailable Care Team Providers Care Didactic Program In Dietetics Director Name Role Phone Migration, Doctor Unavailable Unavailable PROBLEMS Type Condition ICD9-CM Code LOY28-PB Code Onset Dates Condition S tatus SNOMED Code Problem Mixed hyperlipidemia E78.2 Active 219091553 Problem Anxiety F41.9 Active 81064247 Problem Other organ or system involvement in systemic julito pus erythematosus M32.19 Active 36898088 Problem Episode of recurrent major d epressive disorder, unspecified depression episode severity F33.9 Active 663234707 Problem Asymptomatic menopausal state Z78.0 Active 09156867 Problem Systemic lupus erythematosus , unspecified SLE type, unspecified organ involvement status M32.9 Active 42914740 Problem Right renal artery stenosis I70.1 Ac tive [id number] Problem Type 2 diabetes mellitus with foot ulcer E11.621 Active 035832993076685 Problem Lumbago with sciatica, right side M54.41 Active 092984657 Problem Non-pressure chronic ulcer o f other part of unspecified foot limited to breakdown of skin L97.501 Active 210722363 Problem Other chronic pain G89.29 Active 8 4768541 Problem Other chronic pain G89.29 Active 8 5012364 Problem Acute right-sided low back pain with right-sided sciatica M54.41 Active 110158308 Problem 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 381448694 Problem 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 46639190 Problem Frequent falls R29.6 Active 36096 2001 Problem HILARIO (obstructive sleep apnea) G47.33 Active 51006999 Problem Cerebrovascular accident (CV A) due to occlusion of other cerebral artery I63.59 Active 334314712 Problem Sciatica M54.30 Active 85121621 Problem Gangrene I96 Active 724882316 Problem Hepatitis C B19.20 Active 73012438 Problem Unsteady gait R26.81 Active 911721 008 Problem Seborrheic keratoses L82.1 Active 632465661 Problem Non-pressure chronic ulcer o f other part of unspecified foot limited to breakdown of skin L97.501 Active 560738579 Problem Urinary frequency R35.0 Active 16 8208644 Problem Necrosis I96 Active 114889312 Problem 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 Active 713531916 Problem Type 2 diabetes mellitus with foot ulcer E11.621 Active 119773523595239 Problem Arterial insufficiency of lower extremity I73.9 Active 403515205166382 Problem Ventricular tachycardia I47.2 Active 42688242 Problem Atherosclerosis of renal artery I70.1 Active 218006402011161 Problem 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 Active 751555769 Problem 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 Active 722436754 Problem Chronic anticoagulation Z79.01 Active 095181122 Problem Sialoadenitis, unspecified K11.20 Act gulshan 39234778 Problem Current moderate episode of major depressive disorder without prior episode F32.1 Active 26795918 Problem Body mass index (BMI) 29.0-29.9, adult Z68.29 Active 537972780 Problem Systolic congestive heart failure, unspecified HF chronici ty I50.20 Active 51938742 Problem Hypertension I10 Active 5786846 3 Problem Cardiomyopathy of undetermined type I42.9 Active 85880165 ALLERGIES No Information ENCOUNTERS Encounter Location Date Diagnosis [place] [address] [place] [id number] [place] [address] Sep, Other chronic pain G89.29 [place] [address] [place] [address] 08 Sep, 2019 [facility] [address] [place] [id number] [place] [address] Aug, Other chronic pain G89.29 [place] [address] [place] [address] Aug, [facility] [address] [place] [id number] [address] [place] [address] July, Other chronic pain G89.29 [place] [address] [place] [id number] [place] [address] 30 Jun, 2019 Other chronic pain G89.29 [facility] [address] [facility] [id number] [address] [place] [address] 14 Jun, 2019 Frequent headaches R51 [facility] [address] [facility] [id number] [address] [place] [address] 03 Jun, 2019 Systolic congestive heart fa ilure, unspecified HF chronicity I50.20 ; Type 2 diabetes mellitus with foot ulcer E11.621 and Coronary artery disease of [place] artery of [place] heart with stable angina pectoris I25.118 [facility] [address] [facility] [id number] [address] [place] [address] Jun, Other chronic pain G89.29 [facility] [address] [facility] [id number] [address] [place] [address] 16 May, 2019 [place] [address] [place] [id number] [place] [address] May, Other chronic pain G89.29 [facility] [address] [place] [id number] [place] [address] 20 Apr, 2019 Atherosclerosis of renal art taurus I70.1 ; Cardiomyopathy of undetermined type I42.9 and Ventricular tachycardia I47.2 [facility] [address] [place] [id number] [place] [phone] 14 Apr, 2019 [facility] [address] [facility] [id number] [address] [place] [address] Apr, Non-intractable vomiting wit h nausea, unspecified vomiting type R11.2 [facility] [address] [facility] [id number] [address] [place] [address] Apr, Other chronic pain G89.29 [facility] [address] [facility] [id number] [address] [place] [address] Mar, Other chronic pain G89.29 [facility] [address] [place] [id number] [place] [address] Feb, Renal insufficiency N28.9 [facility] [address] [facility] [id number] [address] [place] [address] Feb, [facility] [address] [facility] [id number] [address] [place] [address] Feb, Frequent headaches R51 and H ypertension I10 [place] [address] [facility] [id number] [address] [place] [address] Feb, Other chronic pain G89.29 [facility] [address] [facility] [id number] [address] [place] [address] Jan, [facility] Z00.00 ; Arterial insufficiency [...] episode F32.1 and Encounter for immunization Z23 [place] [address] [place] [id number] [place] [address] Jan, [place] [address] [facility] [id number] [address] [place] [address] Jan, Other chronic pain G89.29 [facility] [address] [facility] [id number] [address] [place] [address] Dec, [facility] [address] [facility] [id number] [address] [place] [address] Dec, Hypokalemia E87.6 [place] [address] [facility] [id number] [address] [place] [address] Dec, Nausea R11.0 [facility] [address] [place] [id number] [place] [phone] 14 Dec, 2018 Other chronic pain G89.29 [facility] [address] [facility] [id number] [address] [place] [address] Dec, Systolic congestive heart fa ilure, unspecified HF chronicity I50.20 and Ventricular tachycardia I47.2 [facility] [address] [facility] [id number] [address] [place] [address] 08 Dec, 2018 [facility] [address] [facility] [id number] [address] [place] [address] Nov, Other chronic pain G89.29 [place] [address] [facility] [id number] [address] [place] [address] Nov, Nausea with vomiting, unspec ified R11.2 [place] [address] [facility] [id number] [address] [place] [address] Oct, [place] [address] [place] [id number] [place] [address] Oct, Other chronic pain G89.29 [place] [address] [place] [id number] [place] [address] Oct, [place] [address] [facility] [id number] [place] [address] Oct, Arterial insufficiency of lo wer extremity I73.9 and High risk medication use Z79.899 [facility] [address] [place] [id number] [place] [address] Oct, Type 2 diabetes mellitus wit h foot ulcer E11.621 and Non-pressure chronic ulcer of other part of unspecified foot limited to breakdown of skin L97.501 [facility] [address] [facility] [id number] [address] [place] [address] Oct, Gangrene I96 [facility] [address] [facility] [id number] [address] [place] [address] Sep, Other chronic pain G89.29 [facility] [address] [place] [id number] [place] [address] Sep, Status post CVA Z86.73 ; Uns teady gait R26.81 and Frequent falls R29.6 [place] [address] [id number] [address] [place] [address] 11 Sep, 2018 Nausea with vomiting, unspec ified R11.2 [place] [address] [id number] [address] [place] [address] Sep, Other chronic pain G89.29 [place] [address] [id number] [address] [place] [address] Aug, [place] [address] [facility] [id number] [address] [place] [address] Aug, Other chronic pain G89.29 [place] [address] [facility] [id number] [address] [place] [address] July, 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 and Cerebrovascular accident (CVA) due to occlusion of other cerebral artery I63.59 [place] [address] [facility] [id number] [address] [place] [address] July, Renal insufficiency N28.9 [place] [address] [facility] [id number] [address] [place] [address] July, Cerebrovascular accident (CV A) due to occlusion of other cerebral artery I63.59 and Unexplained weight loss R63.4 [place] [address] [facility] [id number] [address] [place] [address] July, [place] [address] [facility] [id number] [address] [place] [address] July, [place] [address] [id number] [address] [place] [address] July, Unexplained weight loss R63. 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 4 [place] [address] [place] [id number] [place] [address] May, Nausea with vomiting, unspec ified R11.2 [place] [address] [address] May, Non-recurrent acute suppurat gulshan otitis media of right ear without spontaneous rupture of tympanic membrane H66.001 and Chronic anticoagulation Z79.01 [place] [address] [address] May, Other chronic pain G89.29 [facility] [address] [address] Apr, [facility], [facility] S[facility].811[facility] ; Skin tear of left forearm without complication, initial encounter S51.812A and Encounter for immunization Z23 [place] [address] [address] Apr, [place] [address] [address] Apr, Diarrhea, unspecified R19.7 ; Nausea with vomiting, unspecified R11.2 and 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 [facility] [address] [place] [id number] [place] [address] Apr, Other chronic pain G89.29 [place] [address] [place] [id number] [place] [address] Mar, Other chronic pain G89.29 [place] [address] [place] [id number] [place] [address] Mar, Other chronic pain G89.29 [facility] [address] [id number] [address] [place] [address] Mar, [facility] [address] [id number] [address] [place] [address] Mar, Other organ or system involv ement in systemic lupus erythematosus M32.19 [facility] [address] [id number] [address] [place] [address] Mar, Non-recurrent acute suppurat gulshan otitis media of right ear without spontaneous rupture of tympanic membrane H66.001 and Chronic anticoagulation Z79.01 [facility] [address] [id number] [address] [place] [address] Feb, Sialoadenitis, unspecified K 11.20 [facility] [address] [id number] [address] [place] [address] Feb, Other chronic pain G89.29 [facility] [address] [id number] [address] [place] [address] Jan, 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 [place] [address] [id number] [address] [place] [address] Jan, Other chronic pain G89.29 ; Lumbago with sciatica, right side M54.41 ; Other chronic pain G89.29 ; Tobacco abuse Z72.0 ; Tobacco abuse counseling Z71.6 ; Mixed hyperlipidemia E78.2 and 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 [facility] [address] [id number] [address] [place] [address] Jan, [facility] [address] [id number] [address] [place] [address] Dec, [facility] [address] [id number] [address] [place] [address] Dec, [facility] [address] [facility] [id number] [address] [place] [address] Dec, [place] [address] [facility] [id number] [address] [place] [address] Dec, Mixed hyperlipidemia E78.2 ; Other chronic [...] involvement in systemic lupus erythematosus M32.19 [facility] [address] [place] [id number] Dec, Right renal artery stenosis I70.1 ; Othe r organ or system involvement in systemic lupus erythematosus M32.19 ; Hepatitis C B19.20 ; Tobacco abuse Z72.0 and Weakness R53.1 [facility] [address] [place] [id number] Dec, [place] [address] [facility] [id number] [address] [place] [address] Dec, [place] [address] [facility] [id number] [address] [place] [address] Dec, Other organ or system involv ement in systemic lupus erythematosus M32.19 [facility] [address] [place] [id number] Dec, Right renal artery stenosis I70.1 ; Inju ry of right kidney, sequela S37.001S ; Tobacco abuse Z72.0 ; Systemic lupus erythematosus, unspecified SLE type, unspecified organ involvement status M32.9 ; Hepatitis C B19.20 and Candidiasis of female genitalia B37.3 [place] [address] [facility] [id number] [address] [place] [address] Dec, Other organ or system involv ement in systemic lupus erythematosus M32.19 [place] [address] [facility] [id number] [address] [place] [address] Dec, Other organ or system involv ement in systemic lupus erythematosus M32.19 [facility] [address] [id number] [address] [place] [address] Dec, [facility] [address] [id number] [address] [place] [address] Nov, Other organ or system involv ement in systemic lupus erythematosus M32.19 [facility] [address] [id number] [address] [place] [address] Oct, Other organ or system involv ement in systemic lupus erythematosus M32.19 [facility] [address] [id number] [address] [place] [address] Sep, Other organ or system involv ement in systemic lupus erythematosus M32.19 [facility] [address] [id number] [address] [place] [address] Aug, Anxiety F41.9 [facility] [address] [id number] [address] [place] [address] Aug, Other organ or system involv ement in systemic lupus erythematosus M32.19 [facility] [address] [id number] [address] [place] [address] July, Medicare annual wellness vis it, initial Z00.00 ; Anxiety F41.9 ; HILARIO (obstructive sleep apnea) G47.33 ; Hepatitis C B19.20 ; Other chronic pain G89.29 ; Asymptomatic menopausal state Z78.0 and Episode of recurrent major depressive disorder, unspecified depression episode severity F33.9 [facility] [address] [id number] [address] [place] [address] July, Anxiety F41.9 [facility] [address] [id number] [address] [place] [address] July, Other organ or system involv ement in systemic lupus erythematosus M32.19 [facility] [address] [id number] [address] [place] [address] July, [facility] [address] [facility] [id number] [address] [place] [address] Jun, Other organ or system involv ement in systemic lupus erythematosus M32.19 ; BMI 40.0-44.9, adult Z68.41 ; Other chronic pain G89.29 and Controlled substance agreement signed Z79.899 [facility] [address] [id number] [address] [place] [address] May, Sciatica M54.30 [facility] [address] [id number] [address] [place] [address] Apr, Sciatica M54.30 [facility] [address] [facility] [id number] [address] [place] [address] Mar, Sciatica M54.30 [facility] [address] [facility] [id number] [address] [place] [address] Feb, Sciatica M54.30 [facility] [address] [facility] [id number] [address] [place] [address] 15 Jan, 2017 Sciatica M54.30 [facility] [address] [id number] [address] [place] [address] 14 Jan, 2017 Sciatica M54.30 [facility] [address] [facility] [id number] [address] [place] [address] 19 Dec, 2016 Sciatica M54.30 [facility] [address] [facility] [id number] [address] [place] [address] 18 Dec, 2016 Sciatica M54.30 [facility] [address] [facility] [id number] [address] [place] [address] 29 Nov, 2016 Mixed hyperlipidemia E78.2 ; Chronic seasonal allergic rhinitis due to other allergen J30.2 and Family history of early CAD Z82.49 [facility] [address] [id number] [address] [place] [address] Nov, Sciatica M54.30 [facility] [address] [id number] [address] [place] [address] Nov, Mixed hyperlipidemia E78.2 ; Chronic seasonal allergic rhinitis due to other allergen J30.2 ; Family history of early CAD Z82.49 ; Other chronic pain G89.29 and Pain in left shoulder M25.512 [facility] [address] [facility] [id number] [address] [place] [address] Nov, Acute pain of left shoulder M25.512 [facility] [address] [facility] [id number] [address] [place] [address] Oct, Sciatica M54.30 [place] [address] [facility] [id number] [address] [place] [address] Oct, [place] [address] [place] [id number] [place] [address] Sep, Sciatica M54.30 [place] [address] [place] [id number] [place] [address] Sep, Acute pain of left shoulder M25.512 [facility] [address] [facility] [id number] [address] [place] [address] Sep, Acute pain of left shoulder M25.512 [place] [address] [place] [id number] [place] [address] Aug, Sciatica M54.30 [place] [address] [place] [id number] [place] [address] Aug, Sciatica M54.30 ; Tobacco ab use Z72.0 and Tobacco abuse counseling Z71.6 [place] [address] [facility] [id number] [address] [place] [address] Aug, Acute pain of left shoulder M25.512 [facility] [address] [facility] [id number] [address] [place] [address] Aug, Contusion of right shoulder, initial encounter S40.011A ; Acute pain of left shoulder M25.512 and Shortness of breath R06.02 [place] [address] [place] [id number] [place] [address] Aug, Lumbago with sciatica, right side M54.41 [facility] [address] [facility] [id number] [address] [place] [address] July, [facility] [address] [facility] [id number] [address] [place] [address] July, Lumbago with sciatica, right side M54.41 [facility] [address] [facility] [id number] [address] [place] [address] Jun, Lumbago with sciatica, right side M54.41 [facility] [address] [facility] [id number] [address] [place] [id number] May, Lumbago with sciatica, right side M54.41 [facility] [address] [place] [id number] [address] [place] [id number] May, Herpes zoster without compli cation B02.9 [facility] [address] [facility] [id number] [address] [place] [id number] May, Back pain M54.9 and Acute ri ght-sided low back pain with right-sided sciatica M54.41 [facility] [address] [facility] [id number] [address] [place] [phone] Apr, [facility] [address] [facility] [id number] [address] [place] [address] Apr, Lumbago with sciatica, right side M54.41 and Other chronic pain G89.29 [facility] [address] [facility] [id number] [address] [place] [address] Apr, [facility] [address] [facility] [id number] [address] [place] [address] Mar, [facility] [address] [place] [id number] [address] [place] [address] Mar, [facility] [address] [id number] [address] [place] [address] Feb, [facility] [address] [id number] [address] [place] [address] Jan, Urinary frequency R35.0 [facility] [address] [id number] [address] [place] [address] Jan, [facility] [address] [facility] [id number] [address] [place] [address] Dec, [facility] [address] [id number] [address] [place] [address] Oct, [facility] [address] [facility] [id number] [place] [address] Sep, [facility] [address] [facility] [id number] [address] [place] [address] Sep, Foreign body in left foot, i nitial encounter S90.852A [facility] [address] [facility] [id number] [address] [place] [address] Aug, [facility] [address] [facility] [id number] [address] [place] [address] July, Sciatica M54.30 [facility] [address] [facility] [id number] [address] [place] [address] Jun, [facility] [address] [facility] [id number] [address] [place] [address] May, 2016 Osteoarthritis M19.90 [facility] [address] [id number] [address] [place] [address] May, [facility] [address] [facility] [id number] [address] [place] [address] 16 May, 2016 Pain in right hip M25.551 [facility] [address] [facility] [id number] [address] [place] [address] 06 May, 2016 Tinea corporis B35.4 [facility] [address] [id number] [address] [place] [address] 10 Apr, 2015 Pain in right hip M25.551 [facility] [address] [id number] [address] [place] [address] 11 Mar, 2015 Pain in right hip M25.551 [facility] [address] [id number] [address] [place] [address] Mar, [facility] [address] [id number] [address] [place] [address] Feb, Pain in right hip M25.551 [facility] [address] [id number] [address] [place] [address] Jan, Acute bronchitis, unspecifie d organism J20.9 and Cough R05 [facility] [address] [id number] [address] [place] [address] Jan, Pain in right hip M25.551 [facility] [address] [id number] [address] [place] [address] Dec, Pain in right hip M25.551 [facility] [address] [id number] [address] [place] [address] Nov, Acute bronchitis 466.0 [facility] [address] [id number] [address] [place] [address] Nov, [facility] [address] [id number] [address] [place] [address] Oct, [facility] [address] [id number] [address] [place] [address] Sep, [facility] [address] [id number] [address] [place] [address] Aug, [facility] [address] [id number] [address] [place] [address] July, [facility] [address] [id number] [address] [place] [address] Jun, [facility] [address] [id number] [address] [place] [address], [place] [address] 13 Jun, 2014 [facility] [address] [id number] [address] [place] [address], [place] [address] 18 May, 2014 [facility] [address] [id number] [address] [place] [address], [place] [address] 18 May, 2014 [facility] [address] [id number] [address] [place] [address], [place] [address] 17 Apr, 2014 [facility] [address] [id number] [address] [place] [address], [place] [address] Apr, 2014 [facility] [address] [id number] [address] [place] [address], [place] [address] Apr, 2014 [facility] [address] [id number] [address] [place] [address], [place] [address] Apr, 2014 [facility] [address] [id number] [address] [place] [address], [place] [address] 06 Apr, 2014 [facility] [address] [id number] [address] [place] [address], [place] [address] 06 Apr, 2014 [facility] [address] [id number] [address] [place] [address], [place] [address] Mar, [facility] [address] [id number] [address] [place] [address], [place] [address] Mar, [facility] [address] [id number] [address] [place] [address] Feb, [facility] [address] [id number] [address] [place] [address], [place] [address] Feb, [facility] [address] [id number] [address] [place] [address], [place] [address] Feb, [facility] [address] [id number] [address] [place] [address], [place] [address] Dec, [facility] [address] [id number] [address] [place] [address], [place] [address] Dec, [facility] [address] [id number] [address] [place] [address], [place] [address] Nov, [facility] [address] [id number] [address] [place] [address], [place] [address] Nov, [facility] [address] [id number] [address] [place] [address], [place] [address] Nov, [facility] [address] [id number] [address] [place] [address], [place] [address] Nov, [facility] [address] [id number] [address] [place] [address], [place] [address] Sep, [facility] [address] [id number] [address] [place] [address], [place] [address] Sep, [facility] [address] [id number] [address] [place] [address], [place] [address] Sep, [facility] [address] [id number] [address] [place] [address], [place] [address] Sep, [facility] [address] [id number] [address] [place] [address], [place] [address] Aug, [facility] [address] [id number] [address] [place] [address], [place] [address] Aug, [facility] [address] [id number] [address] [place] [address], [place] [address] Aug, [facility] [address] [id number] [address] [place] [address], [place] [address] Aug, [facility] [address] [id number] [address] [place] [address], [place] [address] July, [facility] [address] [id number] [address] [place] [address], [place] [address] July, [facility] [address] [id number] [address] [place] [address], [place] [address] Jun, [facility] [address] [id number] [facility] [place] [address] Jun, [facility] [address] [id number] [facility] [place] [address] Jun, [facility] [address] [id number] [facility] [place] [address] Jun, [facility] [address] [id number] [address] [place] [address], [place] [address] Jun, [facility] [address] [id number] [address] [place] [address], [place] [address] Jun, [facility] [address] [id number] [address] [place] [address], [place] [address] Jun, [facility] [address] [id number] [address] [place] [address], [place] [address] Jun, [facility] [address] [id number] [address] [place] [address], [place] [address] May, [facility] [address] [id number] [address] [place] [address], [place] [address] May, [facility] [address] [id number] [address] [place] [address], [place] [address] May, [facility] [address] [id number] [address] [place] [address], [place] [address] May, [facility] [address] [id number] [address] [place] [address], [place] [address] May, [facility] [address] [id number] [address] [place] [address], [place] [address] May, [facility] [address] [id number] [address] [place] [address], [place] [address] Apr, [facility] [address] [id number] [address] [place] [address], [place] [address] Apr, [facility] [address] [id number] [address] [place] [address], [place] [address] Apr, [facility] [address] [id number] [address] [place] [address], [place] [address] Apr, [facility] [address] [id number] [address] [place] [address], [place] [address] Mar, [facility] [address] [id number] [address] [place] [address], [place] [address] Mar, [facility] [address] [id number] [address] [place] [address], [place] [address] Mar, [facility] [address] [id number] [address] [place] [address], [place] [address] Mar, [facility] [address] [id number] [address] [place] [address], [place] [address] Mar, [facility] [address] [id number] [address] [place] [address], [place] [address] Mar, [facility] [address] [id number] [address] [place] [address], [place] [address] Feb, [facility] [address] [id number] [address] [place] [address], [place] [address] Feb, [facility] [address] [id number] [address] [place] [address], [place] [address] Feb, [facility] [address] [id number] [address] [place] [address], [place] [address] Feb, [facility] [address] [id number] [address] [place] [address] Feb, [facility] [address] [id number] [address] [place] [address], [place] [address] Feb, [facility] [address] [id number] [address] [place] [address], [place] [address] Feb, [facility] [address] [id number] [address] [place] [address], [place] [address] Feb, [facility] [address] [id number] [address] [place] [address], [place] [address] Feb, [facility] [address] [id number] [address] [place] [address], [place] [address] Feb, [facility] [address] [id number] [address] [place] [address], [place] [address] Feb, [facility] [address] [id number] [address] [place] [address], [place] [address] Feb, [facility] [address] [id number] [address] [place] [address], [place] [address] Jan, [facility] [address] [id number] [address] [place] [address], [place] [address] Jan, [facility] [address] [id number] [address] [place] [address], [place] [address] Jan, [facility] [address] [id number] [address] [place] [address], [place] [address] Jan, [facility] [address] [id number] [address] [place] [address], [place] [address] Jan, [facility] [address] [id number] [address] [place] [address], [place] [address] Jan, [facility] [address] [id number] [address] [place] [address], [place] [address] Jan, [facility] [address] [id number] [address] [place] [address], [place] [address] Jan, [facility] [address] [id number] [address] [place] [address], [place] [address] Jan, [facility] [address] [id number] [address] [place] [address], [place] [address] Jan, [facility] [address] [id number] [address] [place] [address], [place] [address] Dec, [facility] [address] [id number] [address] [place] [address], [place] [address] Dec, [facility] [address] [id number] [address] [place] [address], [place] [address] Nov, [facility] [address] [id number] [address] [place] [address], [place] [address] Nov, [facility] [address] [id number] [address] [place] [address], [place] [address] Nov, [facility] [address] [id number] [address] [place] [address], [place] [address] Nov, [facility] [address] [id number] [address] [place] [address], [place] [address] Nov, [facility] [address] [id number] [address] [place] [address], [place] [address] Oct, [facility] [address] [id number] [address] [place] [address], [place] [address] Oct, [facility] [address] [id number] [address] [place] [address], [place] [address] Oct, [facility] [address] [id number] [address] [place] [address], [place] [address] Oct, [facility] [address] [id number] [address] [place] [address], [place] [address] Oct, [facility] [address] [id number] [address] [place] [address], [place] [address] Sep, [facility] [address] [id number] [address] [place] [address], [place] [address] Sep, [facility] [address] [id number] [address] [place] [address], [place] [address] Sep, [facility] [address] [id number] [address] [place] [address], [place] [address] Sep, [facility] [address] [id number] [address] [place] [address], [place] [address] Sep, [facility] [address] [id number] [address] [place] [address], [place] [address] Sep, [facility] [address] [id number] [address] [place] [address], [place] [address] Aug, [facility] [address] [id number] [address] [place] [address], [place] [address] Aug, [facility] [address] [id number] [address] [place] [address], [place] [address] July, [facility] [address] [id number] [address] [place] [address], [place] [address] July, [facility] [address] [id number] [address] [place] [address], [place] [address] July, [facility] [address] [id number] [address] [place] [address], [place] [address] Jun, [facility] [address] [id number] [address] [place] [address], [place] [address] Jun, [facility] [address] [id number] [address] [place] [address], [place] [address] Jun, [facility] [address] [id number] [address] [place] [address], [place] [address] Jun, [facility] [address] [id number] [address] [place] [address], [place] [address] May, [facility] [address] [id number] [address] [place] [address], [place] [address] May, [facility] [address] [id number] [address] [place] [address], [place] [address] Apr, [facility] [address] [id number] [address] [place] [address], [place] [address] Apr, [facility] [address] [id number] [address] [place] [address], [place] [address] Apr, [facility] [address] [id number] [address] [place] [address], [place] [address] Apr, [facility] [address] [id number] [address] [place] [address], [place] [address] Apr, [facility] [address] [id number] [address] [place] [address], [place] [address] Apr, [facility] [address] [id number] [address] [place] [address], [place] [id number] Apr, [facility] [address] [id number] [address] [place] [address], [place] [address] Apr, [facility] [address] [id number] [address] [place] [address], [place] [address] Mar, [facility] [address] [id number] [address] [place] [address], [place] [address] Mar, [facility] [address] [id number] [address] [place] [address], [place] [address] Mar, [facility] [address] [id number] [address] [place] [address], [place] [address] Mar, [facility] [address] [id number] [address] [place] [address], [place] [address] Jan, [facility] [address] [id number] [address] [place] [address], [place] [address] Jan, [facility] [address] [id number] [address] [place] [address], [place] [address] Jan, [facility] [address] [id number] [address] [place] [address], [place] [address] Jan, [facility] [address] [id number] [address] [place] [address], [place] [address] Jan, [facility] [address] [id number] [address] [place] [address], [place] [address] Dec, [facility] [address] [id number] [address] [place] [address], [place] [address] Dec, [facility] [address] [id number] [address] [place] [address] [place] [address] Dec, [facility] [address] [id number] [address] [place] [address], [place] [address] Dec, [facility] [address] [id number] [address] [place] [address], [place] [address] Nov, [facility] [address] [id number] [address] [place] [address], [place] [address] Oct, [facility] [address] [id number] [address] [place] [address], [place] [address] Oct, [facility] [address] [id number] [address] [place] [address], [place] [address] Oct, [facility] [address] [id number] [address] [place] [address], [place] [address] Oct, [facility] [address] [id number] [address] [place] [address], [place] [address] Oct, [facility] [address] [id number] [address] [place] [address], [place] [address] Sep, [facility] [address] [id number] [address] [place] [address], [place] [address] Sep, [facility] [address] [id number] [address] [place] [address], [place] [address] Aug, [facility] [address] [id number] [address] [place] [address], [place] [address] Aug, [facility] [address] [id number] [address] [place] [address], [place] [address] Aug, [facility] [address] [id number] [address] [place] [address], [place] [address] Aug, [facility] [address] [id number] [address] [place] [address], [place] [address] July, [facility] [address] [id number] [address] [place] [address], [place] [address] Jun, [facility] [address] [id number] [address] [place] [address], [place] [address] 28 May, 2011 [facility] [address] [id number] [address] [place] [address], [place] [address] 27 May, 2011 [facility] [address] [id number] [address] [place] [address], [place] [address] 12 May, 2011 [facility] [address] [id number] [address] [place] [address], [place] [address] 30 Mar, 2011 [facility] [address] [id number] [address] [place] [address], [place] [address] Feb, [facility] [address] [id number] [address] [place] [address], [place] [address] Feb, [facility] [address] [id number] [address] [place] [address], [place] [address] Jan, [facility] [address] [id number] [address] [place] [address], [place] [address] Jan, [facility] [address] [id number] [address] [place] [address], [place] [address] Jan, [facility] [address] [id number] [address] [place] [address], [place] [address] Jan, [facility] [address] [id number] [address] [place] [address], [place] [address] 30 Jan, 2010 [facility] [address] [id number] [address] [place] [address], [place] [address] 20 Dec, 2009 [facility] [address] [id number] [address] [place] [address], [place] [address] Dec, [facility] [address] [id number] [address] [place] [address], [place] [address] Dec, [facility] [address] [id number] [address] [place] [address], [place] [address] 18 May, 2009 [facility] [address] [id number] [address] [place] [address], [place] [address] May, [facility] [address] [facility] [id number] [address] [place] [address] Apr, [facility] [address] [facility] [id number] [address] [place] [id number] Jan, [facility] [address] [facility] [id number] [address] [place] [address] Apr, IMMUNIZATIONS No Known Immunizations SOCIAL HISTORY Never Assessed REASON FOR VISIT PLAN OF CARE VITAL SIGNS Height 62 in 2012-07-07 Weight 225 lbs 2012-07-07 Temperature 97.5 degrees Fahrenheit 2012-07-07 Heart Rate 96 bpm 2012-07-07 Respiratory Rate 20 2012-07-07 Blood pressure systolic 138 mmHg 2012-07-07 Blood pressure diastolic 78 mmHg 2012-07-07 MEDICATIONS Unknown Medications RESULTS No Results PROCEDURES [...] for cancer Hospitalization History surgeries Hospitalization History [facility] ER, heart- kidney- Stayed a t [facility] ICU 12/2017 Hospitalization History [facility] ER 03[facility]2018 Hospitalization History [facility]- Stroke 2 weeks 06/2018 Hospitalization History ER 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
--- OUTSIDE RECORDS SUMMARY | 2019-10-19 08:42 | XMS REPORT | Continuity of Care Document ---
Demographics Preferred Language Unknown Marital Status Unknown Worship Affiliation Unknown Race Unknown Ethnic Group Unknown Author Organization Unknown Address Unknown Phone Unavailable Allergies Active Description Code Type Severity Reaction Onset Reported/Identified Relationship to Patient Clinical Status Yes No Known Drug Allergies [id number] Drug Allergy Unknown N/A 10/21/2008 Yes Cymbalta [...] Shoulder/arm 12/07/2007 840.9 Spra in/strain Shoulder/arm 12/07/2007 EUGENIO LINDA DO 840.9 Sprain/strain Shoulder/arm 12/07/2007 EUGENIO LINDA DO 840.9 Sprain/strain Shoulder/arm 12/07/2007 840.9 Spra in/strain Shoulder/arm 12/07/2007 840.9 Spra in/strain Shoulder/arm 12/07/2007 840.9 Spra in/strain Shoulder/arm 12/07/2007 840.9 Spra in/strain Shoulder/arm 12/07/2007 840.9 Spra in/strain Shoulder/arm 12/07/2007 840.9 Spra in/strain Shoulder/arm 12/07/2007 EUGENIO LINDA DO 840.9 Sprain/strain Shoulder/arm 12/07/2007 EUGENIO LINDA DO 840.9 Sprain/strain Shoulder/arm 12/07/2007 EUGENIO LINDA DO 840.9 Sprain/strain Shoulder/arm 12/07/2007 HERNAN CRUZ MD 840 .9 Sprain/strain Shoulder/arm 12/07/2007 EUGENIO LINDA DO 840.9 Sprain/strain Shoulder/arm 12/07/2007 EUGENIO LINDA DO 840.9 Sprain/strain Shoulder/arm 12/07/2007 COLLEEN [...] APRN 84 0.9 Sprain/strain Shoulder/arm 12/07/2007 COLLEEN WANYE APRN R 840.9 Sprain/strain Shoulder/arm 12/07/2007 CHRISTA GLORIA APRN T 84 0.9 Sprain/strain Shoulder/arm 03/01/2008 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 03/01/2008 LINDA DO, EUGENIO K 599.7 HEMATURIA 03/01/2008 LINDA DO, EUGENIO K 789.00 Abdominal Pain Unspecified Site 03/01/2008 WAYNE DINING CAR WAITER/WAITRESS, COLLEEN R 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 03/01/2008 WAYNE DINING CAR WAITER/WAITRESS, COLLEEN R 599.7 HEMATURIA 03/01/2008 WAYNE DINING CAR WAITER/WAITRESS, COLLEEN R 789.00 Abdominal Pain Unspecified Site [...] 789.00 Abdominal Pain Unspecified Site 03/01/2008 WAYNE DINING CAR WAITER/WAITRESS, COLLEEN R 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 03/01/2008 ROSANA DINING CAR WAITER/WAITRESS, COLLEEN R 599.7 HEMATURIA 03/01/2008 ROSANA DINING CAR WAITER/WAITRESS, COLLEEN R 789.00 Abdominal Pain Unspecified Site 03/01/2008 SARA DINING CAR WAITER/WAITRESS, ONEYDA A 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 03/01/2008 SARAJAVIER LINGN, ONEYDA A 59 9.7 HEMATURIA 03/01/2008 SARA LINGN, ONEYDA A 789.00 Abdominal Pain Unspecified Site 03/01/2008 CHRISTA GLORIA APRN T 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 03/01/2008 CHRISTA GLORIA APRN T 59 9.7 HEMATURIA 03/01/2008 CHRISTA GLORIA APRN T 789.00 Abdominal Pain Unspecified Site 03/01/2008 CHRISTA GLORIA APRN T 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 03/01/2008 CHRISTA GLORIA APRN T 59 9.7 HEMATURIA 03/01/2008 CHRISTA GLORIA APRN T 789.00 Abdominal Pain Unspecified Site 03/01/2008 ROSANA IRVIN COLLEEN R 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 03/01/2008 ROSANA IRVIN COLLEEN R 599.7 HEMATURIA 03/01/2008 ROSANA IRVIN COLLEEN R 789.00 Abdominal Pain Unspecified Site [...] 414.01 COR ONARY ARTERY STENOSIS MULTI-VESSEL 08/10/2008 MADDI DO, EUGENIO K 300.00 anxiety 08/10/2008 LINDA DO EUGENIO K 305.1 NICOTINE DEPENDENCE 08/10/2008 LINDA DO, EUGENIO K 414.01 CORONARY ARTERY STENOSIS MULTI-VESSEL 08/10/2008 LINDA DO, EUGENIO K 300.00 anxiety 08/10/2008 LINDA DO, EUGENIO K 305.1 NICOTINE DEPENDENCE 08/10/2008 LINDA , EUGENIO K 414.01 CORONARY ARTERY STENOSIS MULTI-VESSEL [...] ONARY ARTERY STENOSIS MULTI-VESSEL 08/10/2008 LINDA DO, EUGENIO [...] K 414.01 CORONARY ARTERY STENOSIS MULTI-VESSEL 08/10/2008 COLLEEN WANYE APRN 300.00 anxiety 08/10/2008 ROSANA DINING CAR WAITER/WAITRESS, COLLEEN R 305.1 NICOTINE DEPENDENCE 08/10/2008 ROSANA [...] 414.01 CORONARY ARTERY STENOSIS MULTI-VESSEL 08/10/2008 ROSANA IRVIN, COLLEEN R 300.00 anxiety 08/10/2008 ROSANA LINGN, COLLEEN R 305.1 NICOTINE DEPENDENCE 08/10/2008 ROSANA LINGN, COLLEEN R 414.01 CORONARY ARTERY STENOSIS MULTI-VESSEL 08/10/2008 SARA APRN, ONEYDA A 300.00 anxiety 08/10/2008 SARA DINING CAR WAITER/WAITRESS, ONEYDA A 30 5.1 NICOTINE DEPENDENCE 08/10/2008 SARA DINING CAR WAITER/WAITRESS, ONEYDA A 414.01 CORONARY ARTERY STENOSIS MULTI-VESSEL 08/10/2008 CHRISTA GLORIA APRN 300.00 ANXIETY 08/10/2008 CHRISTA GLORIA APRN 30 [...] Becky rtness Of Breath 02/13/2009 LINDA DO, EUGENIO K [...] Becky rtness Of Breath 02/13/2009 LINDA DO, EUGENIO K [...] .05 Shortness Of Breath 02/13/2009 LINDA DO, EUGENIO [...] EUGENIO K 786.05 Shortness Of Breath 02/13/2009 AMRCELO WAYNE APRNIA R 780.79 FATIGUE 02/13/2009 MARCELO WAYNE APRNIA R 786.05 Shortness Of Breath 02/13/2009 ONEYDA [...] 466.0 Acut e Bronchitis 03/27/2009 LINDA DO, EUGENIO K 466.0 Acute Bronchitis 03/27/2009 LINDA DO, EUGENIO K 466.0 Acute Bronchitis 03/27/2009 466.0 Acut e Bronchitis 03/27/2009 466.0 Acut e Bronchitis 03/27/2009 466.0 Acut e Bronchitis 03/27/2009 466.0 Acut e Bronchitis 03/27/2009 466.0 Acut e Bronchitis 03/27/2009 466.0 Acut e Bronchitis 03/27/2009 LINDA DO, EUGENIO K 466.0 Acute Bronchitis 03/27/2009 LINDA DO, EUGENIO K 466.0 Acute Bronchitis 03/27/2009 LINDA DO, EUGENIO K 466.0 Acute Bronchitis 03/27/2009 ANTHONY CRYSTAL, HERNAN Mead 466 .0 Acute Bronchitis 03/27/2009 LINDA DO, EUGENIO K [...] WAYNE APRN R 466.0 Acute Bronchitis 03/27/2009 SARAJAVIER IRVIN ONEYDA A 46 6.0 Acute Bronchitis 03/27/2009 CHRISTA GLORIA APRN 46 6.0 Acute Bronchitis 03/27/2009 CHRISTA GLORIA APRN 46 6.0 Acute Bronchitis 03/27/2009 COLLEEN WAYNE APRN R 466.0 Acute Bronchitis 03/27/2009 FAIZAN IRVIN CHRISTA T 46 6.0 Acute Bronchitis 05/10/2009 625.8 [place] 05/10/2009 V72.31 Aeronautical Engineering Officer Exam, Routine 05/10/2009 625.8 [place] 05/10/2009 V72.31 Aeronautical Engineering Officer Exam, Routine 05/10/2009 LINDA DO EUGENIO K 625.8 [place] 05/10/2009 LINDA DO EUGENIO K V72.31 Aeronautical Engineering Officer Exam, Routine 05/10/2009 LINDA DO, EUGENIO K 625.8 [place] 05/10/2009 LINDA DO, EUGENIO K V72.31 Aeronautical Engineering Officer Exam, Routine 05/10/2009 625.8 [place] 05/10/2009 V72.31 Aeronautical Engineering Officer Exam, Routine 05/10/2009 625.8 [place] 05/10/2009 V72.31 Aeronautical Engineering Officer Exam, Routine 05/10/2009 625.8 [place] 05/10/2009 V72.31 Aeronautical Engineering Officer Exam, Routine 05/10/2009 625.8 [place] 05/10/2009 V72.31 Aeronautical Engineering Officer Exam, Routine 05/10/2009 625.8 [place] 05/10/2009 V72.31 Aeronautical Engineering Officer Exam, Routine 05/10/2009 625.8 [place] 05/10/2009 V72.31 Aeronautical Engineering Officer Exam, Routine 05/10/2009 LINDA DO EUGENIO K 625.8 [place] 05/10/2009 LINDA DO EUGENIO K V72.31 Aeronautical Engineering Officer Exam, Routine 05/10/2009 LINDA DO EUGENIO K 625.8 [place] 05/10/2009 LINDA DO EUGENIO K V72.31 Aeronautical Engineering Officer Exam, Routine 05/10/2009 LINDA DO EUGENIO K 625.8 [place] 05/10/2009 LINDA DO EUGENIO K V72.31 Aeronautical Engineering Officer Exam, Routine 05/10/2009 HERNAN CRUZ MD 625 .8 [place] 05/10/2009 HERNAN CRUZ MD V72 .31 Aeronautical Engineering Officer Exam, Routine 05/10/2009 LINDA DO EUGENIO K 625.8 [place] 05/10/2009 LINDA DO, EUGENIO K V72.31 Aeronautical Engineering Officer Exam, Routine 05/10/2009 LINDA DO, EUGENIO K 625.8 [place] 05/10/2009 LINDA DO, EUGENIO K V72.31 Aeronautical Engineering Officer Exam, Routine 05/10/2009 MARCELO WAYNE APRNIA R 625.8 [place] 05/10/2009 MARCELO WAYNE APRNIA R V72.31 Aeronautical Engineering Officer Exam, Routine 05/10/2009 LINDA DO, EUGENIO K 625.8 [place] 05/10/2009 LINDA DO, EUGENIO K V72.31 Aeronautical Engineering Officer Exam, Routine 05/10/2009 LINDA DO, EUGENIO K 625.8 [place] 05/10/2009 LINDA DO, EUGENIO K V72.31 Aeronautical Engineering Officer Exam, Routine 05/10/2009 LINDA DO, EUGENIO K 625.8 [place] 05/10/2009 LINDA DO, EUGENIO K V72.31 Aeronautical Engineering Officer Exam, Routine 05/10/2009 LINDA DO, EUGENIO K 625.8 [place] 05/10/2009 LINDA DO, EUGENIO K V72.31 Aeronautical Engineering Officer Exam, Routine 05/10/2009 LINDA DO, EUGENIO K 625.8 [place] 05/10/2009 LINDA DO, EUGENIO K V72.31 Aeronautical Engineering Officer Exam, Routine 05/10/2009 LINDA DO, EUGENIO K 625.8 [place] 05/10/2009 LINDA DO, EUGENIO K V72.31 Aeronautical Engineering Officer Exam, Routine 05/10/2009 COLLEEN WAYNE APRN R 625.8 [place] 05/10/2009 MARCELO WAYNE APRNIA R V72.31 Aeronautical Engineering Officer Exam, Routine 05/10/2009 SARAONEYDA Mead APRN A 62 5.8 [place] 05/10/2009 ONEYDA RUIZ APRN A V72.31 Aeronautical Engineering Officer Exam, Routine 05/10/2009 CHRISTA GLORIA APRN 62 5.8 [place] 05/10/2009 CHRISTA GLORIA APRN V72.31 Aeronautical Engineering Officer Exam, Routine 05/10/2009 CHRISTA GLORIA APRN 62 5.8 [place] 05/10/2009 CHRISTA GLORIA APRN V72.31 Aeronautical Engineering Officer Exam, Routine 05/10/2009 COLLEEN WAYNE APRN R 625.8 [place] 05/10/2009 COLLEEN WAYNE APRN R V72.31 Aeronautical Engineering Officer Exam, Routine 05/10/2009 CHRISTA GLORIA APRN 62 5.8 [place] 05/10/2009 CHRISTA GLORIA APRN V72.31 Aeronautical Engineering Officer Exam, Routine 06/08/2009 788.31 URG E INCONTINENCE OF URINE 06/08/2009 788.31 URG E INCONTINENCE OF URINE 06/08/2009 LINDA DO, EUGENIO [...] E INCONTINENCE OF URINE 06/08/2009 LINDA DO, EUGENIO [...] INCONTINENCE OF URINE 06/08/2009 CHRISTA GLORIA APRN T 788.31 URGE INCONTINENCE OF URINE 06/08/2009 CHRISTA GLORIA APRN T 788.31 URGE INCONTINENCE OF URINE 06/08/2009 COLLEEN [...] LINDA DO, EUGENIO K 724.5 BACKACHE 12/16/2009 HERNAN CRUZ MD 724 .5 BACKACHE 12/16/2009 LINDA DO, EUGENIO K 724.5 [...] COLLEEN WAYNE APRN R 724.5 BACKACHE 12/16/2009 SARA IRVIN, ONEYDA A 72 4.5 BACKACHE 12/16/2009 CHRISTA GLORIA APRN T 72 4.5 BACKACHE 12/16/2009 CHRISTA GLORIA APRN T 72 4.5 BACKACHE 12/16/2009 ROSANA DINING CAR WAITER/WAITRESSCOLLEEN Jovana 724.5 BACKACHE 12/16/2009 CHRISTA GLORIA APRN T 72 4.5 BACKACHE 06/19/2010 719.40 fransisco nt pain, localized 06/19/2010 783.5 Exce ssive Thirst / Fluid Intake (polydypsia) 06/19/2010 788.42 Dipak quent, Full- bladder Emptying (polyuria) 06/19/2010 719.40 fransisco nt pain, localized 06/19/2010 783.5 Exce ssive Thirst / Fluid Intake (polydypsia) 06/19/2010 788.42 Dipak quent, Full- bladder Emptying (polyuria) 06/19/2010 LINDA DO EUGENIO K 719.40 joint pain, localized [...] Thirst / Fluid Intake (polydypsia) 06/19/2010 788.42 Diapk quent, Full- bladder Emptying (polyuria) 06/19/2010 719.40 [...] Full- bladder Emptying (polyuria) 06/19/2010 LINDA DO, EUGENIO K [...] pain, localized 06/19/2010 HERNAN CRUZ MD N 783 .5 Excessive Thirst / Fluid Intake [...] 788.42 Frequent, Full-bladder Emptying (polyuria) 06/19/2010 WAYNE DINING CAR WAITER/WAITRESS, COLLEEN R 719.40 joint pain, localized 06/19/2010 WAYNE DINING CAR WAITER/WAITRESS, COLLEEN R 783.5 Excessive Thirst / Fluid Intake (polydypsia) 06/19/2010 WAYNE DINING CAR WAITER/WAITRESS, COLLEEN R 788.42 Frequent, Full-bladder Emptying (polyuria) [...] K 788.42 Frequent, Full-bladder Emptying (polyuria) 06/19/2010 PERRI WAYNE APRNRICIA R 719.40 joint pain, localized 06/19/2010 MARCELO WAYNE APRNIA R 783.5 Excessive Thirst / Fluid Intake (polydypsia) 06/19/2010 COLLEEN WAYNE APRN R 788.42 Frequent, Full-bladder Emptying (polyuria) 06/19/2010 ONEYDA RUIZ APRN A 719.40 joint pain, localized 06/19/2010 ONEYDA RUIZ APRN A 78 3.5 Excessive Thirst / Fluid Intake (polydypsia) 06/19/2010 ONEYDA RUIZ APRN A 788.42 Frequent, Full-bladder Emptying (polyuria) 06/19/2010 CHRISTA GLORIA APRN T 719.40 joint pain, localized 06/19/2010 CHRISTA GLORIA APRN T 78 3.5 Excessive Thirst / Fluid Intake (polydypsia) 06/19/2010 CHRISTA GLORIA APRN 788.42 Frequent, Full-bladder Emptying (polyuria) 06/19/2010 CHRISTA GLORIA APRN T 719.40 joint pain, localized 06/19/2010 CHRISTA GLORIA APRN T 78 3.5 Excessive Thirst / Fluid Intake (polydypsia) 06/19/2010 CHRISTA GLORIA APRN T 788.42 Frequent, Full-bladder Emptying (polyuria) 06/19/2010 PERRI WAYNE APRNRICIA R 719.40 joint pain, localized 06/19/2010 PERRI WAYNE APRNRICIA R 783.5 Excessive Thirst / Fluid Intake (polydypsia) 06/19/2010 PERRI WAYNE APRNRICIA R 788.42 Frequent, Full-bladder Emptying (polyuria) 06/19/2010 CHRISTA GLORIA APRN T 719.40 joint pain, localized 06/19/2010 CHRISTA GLORIA APRN T 78 3.5 Excessive Thirst / Fluid Intake (polydypsia) 06/19/2010 CHRISTA GLORIA APRN T 788.42 Frequent, Full-bladder Emptying (polyuria) 09/25/2010 272.4 HYPE RLIPIDEMIA 09/25/2010 272.4 HYPE RLIPIDEMIA 09/25/2010 LINDA DO, EUGENIO K 272.4 HYPERLIPIDEMIA 09/25/2010 LINDA DO, EUGENIO K 272.4 HYPERLIPIDEMIA 09/25/2010 272.4 HYPE RLIPIDEMIA 09/25/2010 272.4 HYPE RLIPIDEMIA 09/25/2010 272.4 HYPE RLIPIDEMIA 09/25/2010 272.4 HYPE RLIPIDEMIA 09/25/2010 272.4 HYPE RLIPIDEMIA 09/25/2010 272.4 HYPE RLIPIDEMIA 09/25/2010 LINDA DO, EUGENIO K 272.4 HYPERLIPIDEMIA 09/25/2010 LINDA DO, EUGENIO K 272.4 HYPERLIPIDEMIA 09/25/2010 LINDA DO, EUGENIO K 272.4 HYPERLIPIDEMIA 09/25/2010 ANTHONY CRYSTAL, HERNAN Mead 272 .4 HYPERLIPIDEMIA 09/25/2010 LINDA DO, EUGENIO K 272.4 HYPERLIPIDEMIA 09/25/2010 LINDA DO, EUGENIO K 272.4 HYPERLIPIDEMIA 09/25/2010 PERRI WAYNE APRNRICIA R 272.4 HYPERLIPIDEMIA 09/25/2010 LINDA DO, EUGENIO K 272.4 HYPERLIPIDEMIA 09/25/2010 LINDA DO, EUGENIO K 272.4 HYPERLIPIDEMIA 09/25/2010 LINDA DO, EUGENIO K 272.4 HYPERLIPIDEMIA 09/25/2010 LINDA DO, EUGENIO K 272.4 HYPERLIPIDEMIA 09/25/2010 LINDA DO, EUGENIO K 272.4 HYPERLIPIDEMIA 09/25/2010 LINDA DO, EUGENIO K 272.4 HYPERLIPIDEMIA 09/25/2010 PERRI WAYNE APRNRICIA R 272.4 HYPERLIPIDEMIA 09/25/2010 SARAJAVIER IRVIN ONEYDA A 27 2.4 HYPERLIPIDEMIA 09/25/2010 CHRISTA GLORIA APRN 27 2.4 HYPERLIPIDEMIA 09/25/2010 CHRISTA GLORIA APRN 27 2.4 HYPERLIPIDEMIA 09/25/2010 PERRI WAYNE APRNRICIA R 272.4 HYPERLIPIDEMIA 09/25/2010 CHRISTA GLORIA APRN T 27 2.4 HYPERLIPIDEMIA 10/15/2010 710.0 Syst emic Lupus Erythematosus 10/15/2010 710.0 Syst emic Lupus Erythematosus 10/15/2010 LINDA DO, EUGENIO K 710.0 Systemic Lupus Erythematosus 10/15/2010 LINDA DO, EUGENIO K 710.0 Systemic Lupus Erythematosus 10/15/2010 710.0 Syst emic Lupus Erythematosus 10/15/2010 710.0 Syst emic Lupus Erythematosus 10/15/2010 710.0 Syst emic Lupus Erythematosus 10/15/2010 710.0 Syst emic Lupus Erythematosus 10/15/2010 710.0 Syst emic Lupus Erythematosus 10/15/2010 710.0 Syst emic Lupus Erythematosus 10/15/2010 LINDA DO, EUGENIO K 710.0 Systemic Lupus Erythematosus 10/15/2010 LINDA DO, EUGENIO K 710.0 Systemic Lupus Erythematosus 10/15/2010 LINDA DO, EUGENIO K 710.0 Systemic Lupus Erythematosus 10/15/2010 ANTHONY CRYSTAL, HERNAN Mead 710 .0 Systemic Lupus Erythematosus 10/15/2010 LINDA DO, EUGENIO K 710.0 Systemic Lupus Erythematosus 10/15/2010 LINDA DO, EUGENIO K 710.0 Systemic Lupus Erythematosus 10/15/2010 ROSANA LINGN, COLLEEN R 710.0 Systemic Lupus Erythematosus 10/15/2010 LNIDA DO, EUGENIO K 710.0 Systemic Lupus Erythematosus 10/15/2010 LINDA DO, EUGENIO K 710.0 Systemic Lupus Erythematosus 10/15/2010 LINDA DO, EUGENIO K 710.0 Systemic Lupus Erythematosus 10/15/2010 LINDA DO, EUGENIO K 710.0 Systemic Lupus Erythematosus 10/15/2010 LINDA DO, EUGENIO K 710.0 Systemic Lupus Erythematosus 10/15/2010 LINDA DO, EUGENIO K 710.0 Systemic Lupus Erythematosus 10/15/2010 ROSANA LINGN, COLLEEN R 710.0 Systemic Lupus Erythematosus 10/15/2010 ONEYDA RUIZ APRN A 71 0.0 Systemic Lupus Erythematosus 10/15/2010 CHRISTA GLORIA APRN T 71 0.0 Systemic Lupus Erythematosus 10/15/2010 CHRISTA GLORIA APRN T 71 0.0 Systemic Lupus Erythematosus 10/15/2010 ROSANA IRVIN, COLLEEN R 710.0 Systemic Lupus Erythematosus 10/15/2010 CHRISTA GLORIA APRN T 71 0.0 Systemic Lupus Erythematosus 02/18/2011 268.9 GRETEL MIN D DEFICIENCY 02/18/2011 710.9 DISO RDERS OF CONNECTIVE TISSUE 02/18/2011 V58.69 nadira ing high-risk medication 02/18/2011 268.9 GRETEL MIN D DEFICIENCY 02/18/2011 710.9 DISO RDERS OF CONNECTIVE TISSUE 02/18/2011 V58.69 nadira ing high-risk medication 02/18/2011 LINDA DO, EUGENIO K 268.9 VITAMIN D DEFICIENCY 02/18/2011 LINDA DO EUGENIO K 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 02/18/2011 LINDA DO, EUGENIO K V58.69 taking high-risk medication 02/18/2011 LINDA DO, EUGENIO K 268.9 VITAMIN D DEFICIENCY 02/18/2011 LINDA DO, EUGENIO K 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 02/18/2011 LINDA DO EUGENIO K V58.69 taking high-risk medication 02/18/2011 [...] nadira ing high-risk medication 02/18/2011 LINDA DO, EUGENIO K 268.9 VITAMIN D DEFICIENCY 02/18/2011 LINDA DO EUGENIO K 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 02/18/2011 LINDA DO EUGENIO K V58.69 taking high-risk medication 02/18/2011 LINDA DO, EUGENIO K 268.9 VITAMIN D DEFICIENCY 02/18/2011 LINDA DO, EUGENIO K 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 02/18/2011 LINDA DO, EUGENIO K V58.69 taking high-risk medication 02/18/2011 LINDA DO, EUGENIO K 268.9 VITAMIN D DEFICIENCY 02/18/2011 LINDA DO, EUGENIO K 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 02/18/2011 LINDA DO, EUGENIO K V58.69 taking high-risk medication 02/18/2011 ANTHONY CRYSTAL, HERNAN N 268 .9 VITAMIN D DEFICIENCY 02/18/2011 ANTHONY CRYSTAL, HERNAN N 710 .9 DISORDERS OF CONNECTIVE TISSUE 02/18/2011 ANTHONY CRYSTAL, HERNAN N V58 .69 taking high-risk medication 02/18/2011 LINDA DO, EUGENIO K 268.9 VITAMIN D DEFICIENCY 02/18/2011 LINDA DO, EUGENIO K 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 02/18/2011 LINDA DO, EUGENIO K V58.69 taking high-risk medication 02/18/2011 LINDA DO, EUGENIO K 268.9 VITAMIN D DEFICIENCY 02/18/2011 LINDA DO, EUGENIO K 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 02/18/2011 LINDA DO, EUGENIO K V58.69 taking high-risk medication 02/18/2011 MARCELO [...] V58.69 taking high-risk medication 02/18/2011 LINDA DO, EUGNEIO K 268.9 VITAMIN D DEFICIENCY 02/18/2011 LINDA [...] EUGENIO K V58.69 taking high-risk medication 02/18/2011 COLLEEN WAYNE APRN R 268.9 VITAMIN D DEFICIENCY 02/18/2011 COLLEEN WAYNE APRN R 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 02/18/2011 COLLEEN WAYNE APRN R V58.69 taking high-risk medication 02/18/2011 ONEYDA RUIZ APRN A 26 8.9 VITAMIN D DEFICIENCY 02/18/2011 BAM RUZI APRNIDI A 71 0.9 DISORDERS OF CONNECTIVE TISSUE 02/18/2011 ONEYDA RUIZ APRN A V58.69 taking high-risk medication 02/18/2011 CHRISTA [...] APRN T V58.69 taking high-risk medication 02/18/2011 COLLEEN WAYNE APRN R 268.9 VITAMIN D DEFICIENCY 02/18/2011 COLLEEN WAYNE APRN R 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 02/18/2011 COLLEEN WAYNE APRN R V58.69 taking high-risk medication 02/18/2011 CHRISTA GLORIA APRN T 26 8.9 VITAMIN D DEFICIENCY 02/18/2011 CHRISTA GLORIA APRN 71 0.9 DISORDERS OF CONNECTIVE TISSUE 02/18/2011 CHRISTA GLORIA APRN V58.69 taking high-risk medication 09/10/2011 V76.10 ASTRID AST CANCER SCREENING 09/10/2011 V76.47 VAG INAL PAP SMEAR SCREENING 09/10/2011 V76.10 ASTRID AST CANCER SCREENING 09/10/2011 V76.47 VAG INAL PAP SMEAR SCREENING 09/10/2011 EUGENIO LINDA DO [...] V76.47 VAG INAL PAP SMEAR SCREENING 09/10/2011 EUGENIO LINDA DO [...] V76 .47 VAGINAL PAP SMEAR SCREENING 09/10/2011 EUGENIO LINDA DO V76.10 BREAST CANCER SCREENING 09/10/2011 LINDA DO, EUGENIO K V76.47 VAGINAL PAP SMEAR SCREENING 09/10/2011 LINDA DO, EUGENIO K V76.10 BREAST CANCER SCREENING 09/10/2011 LINDA DO, EUGENIO K V76.47 VAGINAL PAP SMEAR SCREENING 09/10/2011 MARCELO WAYNE APRNIA R V76.10 BREAST CANCER SCREENING 09/10/2011 MARCELO [...] R V76.47 VAGINAL PAP SMEAR SCREENING 09/10/2011 SARAAlyce IRVIN ONEYDA A V76.10 BREAST CANCER SCREENING 09/10/2011 SARA IRVIN ONEYDA A V76.47 VAGINAL PAP SMEAR SCREENING 09/10/2011 [...] CHRONIC 11/11/2011 702.19 VISHAL ORRHEIC KERATOSIS 11/11/2011 MATTHEW LINDA DOA K 070.54 HEPATITIS C CHRONIC 11/11/2011 MADDI PORTILLO EUGENIO K 702.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 11/11/2011 MADDI PORTILLO EUGENIO K 070.54 HEPATITIS C CHRONIC 11/11/2011 MADDI PORTILLO EUGENIO K 702.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 11/11/2011 070.54 HEP [...] 702.19 VISHAL ORRHEIC KERATOSIS 11/11/2011 MADDI PORTILLO EUGENIO K 070.54 HEPATITIS C CHRONIC 11/11/2011 LINDA DO EUGENIO K 702.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 11/11/2011 LINDA DO EUGENIO K 070.54 HEPATITIS C CHRONIC 11/11/2011 LINDA DO EUGENIO K 702.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 11/11/2011 LINDA DO EUGENIO K 070.54 HEPATITIS C CHRONIC 11/11/2011 LINDA DO EUGENIO K 702.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 11/11/2011 ANTHONY CRYSTAL, HERNAN Mead 070 .54 HEPATITIS C CHRONIC 11/11/2011 ANTHONY CRYSTAL, HERNAN Mead 702 .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 11/11/2011 LINDA DO, EUGENIO K 070.54 HEPATITIS C CHRONIC 11/11/2011 LINDA DO, EUGENIO K 702.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 11/11/2011 LINDA DO, EUGENIO K 070.54 HEPATITIS C CHRONIC 11/11/2011 LINDA DO, EUGENIO K 702.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 11/11/2011 MARCELO WAYNE APRNIA R 070.54 HEPATITIS C CHRONIC 11/11/2011 COLLEEN WAYNE APRN R 702.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 11/11/2011 LINDA DO, EUGENIO K 070.54 HEPATITIS C CHRONIC 11/11/2011 LINDA DO, EUGENIO K 702.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 11/11/2011 LINDA DO, EUGENIO K 070.54 HEPATITIS C CHRONIC 11/11/2011 LINDA DO, EUGENIO K 702.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 11/11/2011 LINDA DO, EUGENIO K 070.54 HEPATITIS C CHRONIC 11/11/2011 LINDA DO, EUEGNIO K 702.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 11/11/2011 LINDA DO, EUGENIO K 070.54 HEPATITIS C CHRONIC 11/11/2011 LINDA DO, EUGENIO K 702.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 11/11/2011 LINDA DO, EUGENIO K 070.54 HEPATITIS C CHRONIC 11/11/2011 LINDA DO, EUGENIO K 702.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 11/11/2011 LINDA DO, EUGENIO K 070.54 HEPATITIS C CHRONIC 11/11/2011 LINDA DO, EUGENIO K 702.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 11/11/2011 COLLEEN WAYNE APRN R 070.54 HEPATITIS C CHRONIC 11/11/2011 COLLEEN WAYNE APRN R 702.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 11/11/2011 ONEYDA RUIZ APRN 070.54 HEPATITIS C CHRONIC 11/11/2011 ONEYDA RUIZ APRN 702.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 11/11/2011 CHRISTA GLORIA APRN 070.54 HEPATITIS C CHRONIC 11/11/2011 FAIZAN DINING CAR WAITER/WAITRESS, CHRISTA T 702.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 11/11/2011 CHRISTA GLORIA APRN T 070.54 HEPATITIS C CHRONIC 11/11/2011 CHRISTA GLORIA APRN T 702.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 11/11/2011 COLLEEN WAYNE APRN R 070.54 HEPATITIS C CHRONIC 11/11/2011 COLLEEN WAYNE APRN R 702.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 11/11/2011 CHRISTA GLORIA APRN T 070.54 HEPATITIS C CHRONIC 11/11/2011 CHRISTA GLORIA APRN T 702.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 01/17/2012 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 01/17/2012 784.91 POS TNASAL DRIP 01/17/2012 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 01/17/2012 784.91 POS TNASAL DRIP 01/17/2012 EUGENIO LINDA DO 478.19 Other [...] Sinuses 01/17/2012 784.91 Pos tnasal Drip 01/17/2012 EUGENIO LINDA DO 478.19 Other Diseases Of Nasal Cavity And Sinuses 01/17/2012 LINDA DO, EUGENIO K 784.91 Postnasal Drip 01/17/2012 LINDA DO EUGENIO K 478.19 OTHER DISEASES OF NASAL CAVITY AND SINUSES 01/17/2012 LINDA DO, EUGENIO K 784.91 POSTNASAL DRIP 01/17/2012 LINDA DO, EUGENIO K 478.19 Other Diseases Of Nasal Cavity And Sinuses 01/17/2012 LINDA DO, EUGENIO K 784.91 Postnasal Drip 01/17/2012 ANTHONY CRYSTAL, HERNAN N 478 .19 Other Diseases Of Nasal Cavity And Sinuses 01/17/2012 ANTHONY CRYSTAL, HERNAN N 784 .91 Postnasal Drip 01/17/2012 LINDA DO EUGENIO K 478.19 Other Diseases Of Nasal Cavity And Sinuses 01/17/2012 LINDA DO, EUGENIO K 784.91 Postnasal Drip 01/17/2012 LINDA DO EUGENIO K 478.19 Other Diseases Of Nasal Cavity And Sinuses 01/17/2012 LINDA DO, EUGENIO K 784.91 Postnasal Drip 01/17/2012 COLLEEN WAYNE APRN R 478.19 Other Diseases Of Nasal Cavity And Sinuses 01/17/2012 COLLEEN WAYNE APRN R 784.91 Postnasal Drip 01/17/2012 LINDA DO EUGENIO K 478.19 Other Diseases Of Nasal Cavity And Sinuses 01/17/2012 LINDA DO, EUGENIO K 784.91 Postnasal Drip 01/17/2012 LINDA DO EUGENIO K 478.19 Other Diseases Of Nasal Cavity And Sinuses 01/17/2012 LINDA DO, EUGENIO K 784.91 Postnasal Drip 01/17/2012 LINDA DO EUGENIO K 478.19 Other Diseases Of Nasal Cavity And Sinuses 01/17/2012 LINDA DO, EUGENIO K 784.91 Postnasal Drip 01/17/2012 LINDA DO EUGENIO K 478.19 Other Diseases Of Nasal Cavity And Sinuses 01/17/2012 LINDA DO, EUGENIO K 784.91 Postnasal Drip 01/17/2012 LINDA DO EUGENIO K 478.19 Other Diseases Of Nasal Cavity And Sinuses 01/17/2012 LINDA DO, EUGENIO K 784.91 Postnasal Drip 01/17/2012 LINDA DO EUGENIO K 478.19 Other Diseases Of Nasal Cavity And Sinuses 01/17/2012 LINDA DO EUGENIO K 784.91 Postnasal Drip 01/17/2012 COLLEEN [...] 786.59 04/01/2012 786.2 COUGH 04/01/2012 LINDA DO, EUGENIO K 786.2 Cough 04/01/2012 LINDA DO, EUGENIO K 786.2 Cough 04/01/2012 786.2 Cough 04/01/2012 786.2 Cough 04/01/2012 786.2 Cough 04/01/2012 786.2 Cough 04/01/2012 786.2 Cough 04/01/2012 786.2 Cough 04/01/2012 LINDA DO, EUGENIO K 786.2 Cough 04/01/2012 LINDA DO, EUGENIO K 786.2 Cough 04/01/2012 HERNAN CRUZ MD 786 .2 Cough 04/01/2012 LINDA DO, EUGENIO K 786.2 Cough 04/01/2012 LINDA DO, EUGENIO K 786.2 Cough 04/01/2012 MARCELO WAYNE APRNIA R 786.2 Cough 04/01/2012 LINDA DO, EUGENIO K 786.2 Cough 04/01/2012 LINDA DO, EUGENIO K 786.2 Cough 04/01/2012 LINDA DO, EUGENIO K 786.2 Cough 04/01/2012 LINDA DO, EUGENIO K 786.2 Cough 04/01/2012 LINDA DO, EUGENIO K 786.2 Cough 04/01/2012 LINDA DO, EUGENIO K 786.2 Cough 04/01/2012 ROSANA DINING CAR WAITER/WAITRESS, COLLEEN R 786.2 Cough 04/01/2012 SARA DINING CAR WAITER/WAITRESS, ONEYDA A 78 6.2 Cough 04/01/2012 FAIZAN DINING CAR WAITER/WAITRESS, CHRISTA T 78 6.2 Cough 04/01/2012 FAIZAN DINING CAR WAITER/WAITRESS, CHRISTA T 78 6.2 Cough 04/01/2012 WAYNE DINING CAR WAITER/WAITRESS, COLLEEN R 786.2 Cough 04/01/2012 FAIZAN DINING CAR WAITER/WAITRESS, CHRISTA T 78 6.2 Cough 04/13/2012 LINDA DO, EUGENIO K V65.42 [...] NSELING - SMOKING CESSATION 04/13/2012 LINDA DO, EUGENIO K V65.42 COUNSELING - SMOKING CESSATION 04/13/2012 LINDA DO, EUGENIO K V65.42 COUNSELING - SMOKING CESSATION 04/13/2012 HERNAN CRUZ MD V65 .42 COUNSELING - SMOKING CESSATION 04/13/2012 [...] EUGENIO K 593.9 RENAL INSUFFICIENCY 05/13/2012 593.9 MARQUITA L INSUFFICIENCY 05/13/2012 593.9 MARQUITA L INSUFFICIENCY 05/13/2012 593.9 MARQUITA L INSUFFICIENCY 05/13/2012 593.9 MARQUITA L INSUFFICIENCY 05/13/2012 593.9 MARQUITA L INSUFFICIENCY 05/13/2012 593.9 MARQUITA L INSUFFICIENCY 05/13/2012 LINDA DO, EUGENIO K 593.9 RENAL INSUFFICIENCY 05/13/2012 LINDA DO, EUGENIO K 593.9 RENAL INSUFFICIENCY 05/13/2012 ANTHONY CRYSTAL, HERNAN Mead 593 .9 RENAL INSUFFICIENCY 05/13/2012 LINDA DO, EUGENIO K [...] Mead 724 .3 SCIATICA 07/07/2012 LINDA DO, EUGENIO K 724.3 SCIATICA 07/07/2012 LINDA DO, EUGENIO K 724.3 SCIATICA 07/07/2012 PERRI WAYNE APRNRICIA R 724.3 SCIATICA 07/07/2012 LINDA DO, EUGENIO K 724.3 SCIATICA 07/07/2012 LINDA DO, EUGENIO K 724.3 SCIATICA 07/07/2012 LINDA DO, EUGENIO K 724.3 SCIATICA 07/07/2012 LINDA DO, EUGENIO K 724.3 SCIATICA 07/07/2012 LINDA DO, EUEGNIO K 724.3 SCIATICA 07/07/2012 LINDA DO, EUGENIO K 724.3 SCIATICA 07/07/2012 MARCELO WAYNE APRNIA R 724.3 SCIATICA 07/07/2012 ONEYDA RUIZ APRN A 72 4.3 SCIATICA 07/07/2012 CHRISTA GLORIA APRN 72 4.3 SCIATICA 07/07/2012 CHRISTA GLORIA APRN 72 4.3 SCIATICA 07/07/2012 COLLEEN WAYNE APRN R 724.3 SCIATICA 07/07/2012 CHRISTA GLORIA APRN 72 4.3 SCIATICA 09/21/2012 599.70 HEM ATURIA 09/21/2012 599.70 HEM ATURIA 09/21/2012 599.70 HEM ATURIA 09/21/2012 LINDA DO, EUGENIO K 599.70 HEMATURIA 09/21/2012 LINDA DO, EUGENIO K 599.70 HEMATURIA 09/21/2012 ANTHONY CRYSTAL, HERNAN Mead 599 .70 HEMATURIA 09/21/2012 LINDA DO, EUGENIO K 599.70 [...] APRN 599.70 HEMATURIA 09/21/2012 CHRISTA GLORIA APRN T 599.70 HEMATURIA 09/21/2012 CHRISTA GLORIA APRN 599.70 HEMATURIA 09/21/2012 COLLEEN WAYNE APRN R 599.70 HEMATURIA 09/21/2012 CHRISTA GLORIA APRN T 599.70 HEMATURIA 10/19/2012 787.60 FUL L INCONTINENCE OF FECES 10/19/2012 V65.49 OTH ER SPECIFIED COUNSELING 10/19/2012 V73.81 HPV SCREENING 10/19/2012 V76.51 COL ON CANCER SCREENING 10/19/2012 787.60 FUL L INCONTINENCE OF FECES 10/19/2012 V65.49 OTH ER SPECIFIED COUNSELING 10/19/2012 V73.81 HPV SCREENING 10/19/2012 V76.51 COL ON CANCER SCREENING 10/19/2012 MADDI DO EUGENIO K 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 OF [...] CRUZ MD V73 .81 HPV SCREENING 10/19/2012 EHRNAN CRUZ MD V76 .51 COLON CANCER SCREENING 10/19/2012 LINDA DO, EUGENIO [...] EUGENIO K V76.51 COLON CANCER SCREENING 10/19/2012 ROSANA IRVIN COLLEEN R 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 10/19/2012 MARCELO WAYNE APRNIA R V65.49 OTHER SPECIFIED COUNSELING 10/19/2012 PERRI WAYNE APRNRICIA R V73.81 HPV SCREENING 10/19/2012 ROSANA IRVIN COLLEEN R V76.51 COLON CANCER SCREENING 10/19/2012 ONEYDA RUIZ APRN A 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 10/19/2012 ONEYDA RUIZ APRN A V65.49 OTHER SPECIFIED COUNSELING 10/19/2012 ONEYDA RUIZ APRN A V73.81 HPV SCREENING 10/19/2012 SARA IRVIN ONEYDA A V76.51 COLON CANCER SCREENING 10/19/2012 CHRISTA [...] APRNRICIA R V76.51 COLON CANCER SCREENING 10/19/2012 CHRISTA GLORIA APRN 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 10/19/2012 CHRISTA GLORIA APRN V65.49 OTHER SPECIFIED COUNSELING 10/19/2012 CHRISTA GLORIA APRN V73.81 HPV SCREENING 10/19/2012 CHRISTA GLORIA APRN V76.51 COLON CANCER SCREENING 11/07/2012 LINDA DO EUGENIO K Ot 327.23 OBSTRUCTIVE SLEEP APNEA (ADULT) (PEDIATR 11/21/2012 LINDA DO, EUGENIO K 780.57 SLEEP APNEA 11/21/2012 LINDA DO, EUGENIO K 780.57 SLEEP APNEA 11/21/2012 ANTHONY CRYSTAL, HERNAN Mead 780 .57 SLEEP APNEA 11/21/2012 LINDA DO, EUGENIO K 780.57 SLEEP APNEA 11/21/2012 LINDA DO, EUGENIO K 780.57 SLEEP APNEA 11/21/2012 MARCELO WAYNE APRNIA R 780.57 SLEEP APNEA 11/21/2012 LINDA DO, EUGENIO K 780.57 SLEEP APNEA 11/21/2012 LINDA DO, EUGENIO K 780.57 SLEEP APNEA 11/21/2012 LINDA DO, EUGENIO K 780.57 SLEEP APNEA 11/21/2012 LINDA DO, EUGENIO K 780.57 SLEEP APNEA 11/21/2012 LINDA DO, EUGENIO K 780.57 SLEEP APNEA 11/21/2012 LINDA DO, EUGENIO K 780.57 SLEEP APNEA 11/21/2012 PERRI WAYNE APRNRICIA R 780.57 SLEEP APNEA 11/21/2012 ONEYDA RUIZ APRN 780.57 SLEEP APNEA 11/21/2012 CHRISTA GLORIA APRN 780.57 SLEEP APNEA 11/21/2012 CHRISTA GLORIA APRN T 780.57 SLEEP APNEA 11/21/2012 COLLEEN WAYNE APRN R 780.57 SLEEP APNEA 11/21/2012 CHRISTA GLORIA APRN T 780.57 SLEEP APNEA 04/19/2013 LINDA DO, EUGENIO [...] SLEEP APNEA (ADULT) (PEDIATRIC) 04/19/2013 LINDA DO EUGENIO K 786.09 RESPIRATORY ABNORMALITY OTHER 04/19/2013 [...] RESPIRATORY ABNORMALITY OTHER 04/19/2013 CHRISTA GLORIA APRN T 327.23 OBSTRUCTIVE SLEEP APNEA (ADULT) (PEDIATRIC) 04/19/2013 CHRISTA GLORIA APRN 786.09 RESPIRATORY ABNORMALITY OTHER 04/19/2013 COLLEEN WAYNE APRN R 327.23 OBSTRUCTIVE SLEEP APNEA (ADULT) (PEDIATRIC) 04/19/2013 COLLEEN WAYNE APRN R 786.09 RESPIRATORY ABNORMALITY OTHER 04/19/2013 CHRISTA GLORIA APRN T 327.23 OBSTRUCTIVE SLEEP APNEA (ADULT) (PEDIATRIC) 04/19/2013 CHRISTA GLORIA APRN 786.09 RESPIRATORY ABNORMALITY OTHER 05/05/2013 MATTHEW LINDA DOA K 466.0 BRONCHITIS, ACUTE 05/05/2013 LINDA DO, [...] EUGENIO K 786.05 SHORTNESS OF BREATH 05/05/2013 MARCELO [...] ASSOCIATED WITH FEMALE GENITAL ORG ANS 09/13/2013 CHRISTA GLORIA APRN 62 5.9 UNSPECIFIED SYMPTOM ASSOCIATED WITH FEMALE GENITAL ORGANS 09/28/2013 SARA IRVIN, ONEYDA A 59 9.0 URINARY TRACT INFECTION 09/28/2013 CHRISTA GLORIA APRN T 59 9.0 URINARY TRACT INFECTION 09/28/2013 CHRISTA GLORIA APRN T 59 9.0 URINARY TRACT INFECTION 09/28/2013 COLLEEN WAYNE APRN R 599.0 URINARY TRACT INFECTION 09/28/2013 CHRISTA GLORIA APRN T 59 9.0 URINARY TRACT INFECTION 05/04/2014 MARCELO WAYNE APRNIA R 786.2 COUGH 05/04/2014 CHRISTA GLORIA APRN T 78 6.2 COUGH 12/23/2014 Ot 793.89 12/23/2014 [...] 05/24/2016 SERGIO FARAH MD Ot Z79. 82 SEWAGE RETICULATION DRAFTING OFFICER (CURRENT) USE OF ASPIRIN 05/24/2016 SERGIO FARAH MD Ot Z79.899 OTHER SEWAGE RETICULATION DRAFTING OFFICER (CURRENT) DRUG THERAPY 05/24/2016 SERGIO FARAH MD [...] 05/27/2016 SERGIO FARAH MD Ot Z79. 82 PENITENTIARY (CURRENT) USE OF ASPIRIN 05/27/2016 SERGIO FARAH MD Ot Z79.899 OTHER SEWAGE RETICULATION DRAFTING OFFICER (CURRENT) DRUG THERAPY 05/27/2016 SERGIO FARAH MD [...] 05/27/2016 SERGIO FARAH MD Ot Z79. 82 SEWAGE RETICULATION DRAFTING OFFICER (CURRENT) USE OF ASPIRIN 05/27/2016 SERGIO FARAH MD Ot Z79.899 OTHER PENITENTIARY (CURRENT) DRUG THERAPY 05/27/2016 SERGIO FARAH MD Ot Z85. 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 10 EMBOLISM AND THROMBOSIS OF UNSPECIFIED P 05/31/2016 GAGAN CRYSTAL, SERGIO Griffith Ot K44. 9 DIAPHRAGMATIC HERNIA WITHOUT OBSTRUCTION 05/31/2016 GAGAN CRYSTAL, SERGIO Griffith Ot N28. 1 CYST OF KIDNEY, ACQUIRED 05/31/2016 GAGAN CRYSTAL, SERGIO Griffith Ot R10. 30 LOWER ABDOMINAL PAIN, UNSPECIFIED 05/31/2016 GAGAN CRYSTAL, SERGIO Griffith Ot R10. 31 RIGHT LOWER QUADRANT PAIN 05/31/2016 GAGAN CRYSTAL, SERGIO Griffith Ot R91. 1 SOLITARY PULMONARY NODULE 05/31/2016 GAGAN CRYSTAL, SERGIO Griffith Ot Z79. 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 08/11/2017 YUDI MORRISON DINING CAR WAITER/WAITRESS Ot Z87.19 PERSONAL HISTORY OF OTHER DISEASES OF TH 08/11/2017 YUDI MORRISON DINING CAR WAITER/WAITRESS Ot 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 08/11/2017 YUDI MORRISON DINING CAR WAITER/WAITRESS Ot Z90.89 ACQUIRED ABSENCE OF OTHER ORGANS 09/08/2017 DEJA ZHONG DINING CAR WAITER/WAITRESS Ot Z78.0 ASYMPTOMATIC MENOPAUSAL STATE 09/08/2017 Ot 793.89 OTH (ABN) FINDINGS ON RADIOLOGICAL EXAMI 09/08/2017 Ot V76.12 OTH SCREEN MAMMO- MALIGN NEOPLASM OF [place] 09/08/2017 Ot 610.0 SANJIV TARY CYST OF BREAST 09/08/2017 CANDI CRYSTAL, KASIA Canas Ot V72.84 EXAM PRE-OPERATIVE NOS 09/08/2017 CANDI CRYSTAL, KASIA Canas Ot V72.84 EXAM PRE-OPERATIVE NOS 09/08/2017 DEJA ZHONG DINING CAR WAITER/WAITRESS Ot Z78.0 ASYMPTOMATIC MENOPAUSAL STATE 09/12/2017 DEJA ZHONG DINING CAR WAITER/WAITRESS Ot 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, 09/12/2017 DEJA ZHONG DINING CAR WAITER/WAITRESS Ot Z13.820 ENCOUNTER FOR SCREENING FOR OSTEOPOROSIS 09/12/2017 DEJA ZHONG DINING CAR WAITER/WAITRESS Ot Z78.0 ASYMPTOMATIC MENOPAUSAL STATE 10/02/2017 DEJA ZHONG DINING CAR WAITER/WAITRESS Ot 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, 10/02/2017 DEJA ZHONG DINING CAR WAITER/WAITRESS Ot Z13.820 ENCOUNTER FOR SCREENING FOR OSTEOPOROSIS 10/02/2017 DEJA ZHONG DINING CAR WAITER/WAITRESS Ot Z78.0 ASYMPTOMATIC MENOPAUSAL STATE 12/19/2017 GUSTAVO HUTSON MD Ot F17.210 NICOTINE DEPENDENCE, CIGARETTES, UNCOMPL 12/19/2017 GUSTAVO HUTSON MD Ot I47 .2 VENTRICULAR TACHYCARDIA 12/19/2017 GUSTAVO HUTSON MD Ot N28 .0 ISCHEMIA AND INFARCTION OF KIDNEY 12/19/2017 GUSTAVO HUTSON MD Ot R10.31 RIGHT LOWER QUADRANT PAIN 12/19/2017 GUSTAVO HUTSON MD Ot Z79.82 PENITENTIARY (CURRENT) USE OF ASPIRIN 12/19/2017 GUSTAVO HUTSON [...] PAIN 12/22/2017 GUSTAVO HUTSON MD, Ot Z79.82 PENITENTIARY (CURRENT) USE OF ASPIRIN 12/22/2017 GUSTAVO HUTSON MD, Ot 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 12/22/2017 GUSTAVO HUTSON MD Ot Z90.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 BOTH CERVIX AND UTER 12/22/2017 GUSTAVO HUTSON MD Ot Z90.79 ACQUIRED ABSENCE OF OTHER GENITAL ORGAN( 02/12/2018 REBECCA PORTILLO KEITH K Ot F17.210 NICOTINE DEPENDENCE, CIGARETTES, UNCOMPL 02/12/2018 REBECCA PORTILLO KEITH K Ot F32.9 MAJOR DEPRESSIVE DISORDER, SINGLE EPISOD 02/12/2018 NONA FERNANDEZ DOA K Ot F41.9 ANXIETY DISORDER, UNSPECIFIED 02/12/2018 REBECCA PORTILLO KEITH K Ot I10 ESSENTIAL (PRIMARY) HYPERTENSION 02/12/2018 REBECCA PORTILLO KEITH K Ot I25.10 ATHSCL HEART DISEASE OF [place] CORONARY 02/12/2018 NONA FERNANDEZ DOA K Ot M32.9 SYSTEMIC LUPUS ERYTHEMATOSUS, UNSPECIFIE 02/12/2018 NONA FERNANDEZ DOA K Ot N39.0 URINARY TRACT INFECTION, SITE NOT SPECIF 02/12/2018 NONA FERNANDEZ DOA K Ot R31.9 HEMATURIA, UNSPECIFIED 02/12/2018 NONA FERNANDEZ DOA K Ot 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 OF ANTICOAGULANT 02/12/2018 NONA FERNANDEZ DOA Demond Ot Z79.82 SEWAGE RETICULATION DRAFTING OFFICER (CURRENT) USE OF ASPIRIN 02/12/2018 NONA FERNANDEZ DOA Demond Ot Z85.41 PERSONAL HISTORY OF MALIGNANT NEOPLASM O 02/12/2018 REBECCA DO, KEITH K Ot 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 02/12/2018 REBECCA PORTILLONONAA Demond Ot Z87.19 PERSONAL HISTORY OF OTHER DISEASES OF TH 02/12/2018 REBECCA PORTILLO KEITH Demond Ot 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 02/12/2018 REBECCA PORTILLO KEITH K Ot Z90.5 ACQUIRED ABSENCE OF KIDNEY 02/12/2018 REBECCA KEITH K Ot Z90.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 BOTH CERVIX AND UTER 02/12/2018 REBECCA NONAA Demond Ot Z90.79 ACQUIRED ABSENCE OF OTHER GENITAL ORGAN( 02/12/2018 REBECCA DO KEITH K Ot Z90.89 ACQUIRED ABSENCE OF OTHER ORGANS 02/12/2018 REBECCA KEITH Ot Z98.890 OTHER SPECIFIED POSTPROCEDURAL STATES 02/16/2018 REBECCA DO KEITH Dmeond Ot F17.210 NICOTINE DEPENDENCE, CIGARETTES, UNCOMPL 02/16/2018 REBECCA PORTILLOKEITH Ot F32.9 MAJOR DEPRESSIVE DISORDER, SINGLE EPISOD 02/16/2018 REBECCA KEITH Ot F41.9 ANXIETY DISORDER, UNSPECIFIED 02/16/2018 REBECCA KEITH K Ot I10 ESSENTIAL (PRIMARY) HYPERTENSION 02/16/2018 REBECCA KEITH K Ot I25.10 ATHSCL HEART DISEASE OF [place] CORONARY 02/16/2018 REBECCA NONAA Demond Ot M32.9 SYSTEMIC LUPUS ERYTHEMATOSUS, UNSPECIFIE 02/16/2018 REBECCA NONAA Demond Ot N39.0 URINARY TRACT INFECTION, SITE NOT SPECIF 02/16/2018 REBECCA PORTILLOKEITH Ot R31.9 HEMATURIA, UNSPECIFIED 02/16/2018 REBECCA KEITH K Ot 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 OF ANTICOAGULANT 02/16/2018 REBECCA NONAA K Ot Z79.82 PENITENTIARY (CURRENT) USE OF ASPIRIN 02/16/2018 REBECCA NONAA K Ot Z85.41 PERSONAL HISTORY OF MALIGNANT NEOPLASM O 02/16/2018 REBECCA NONAA K Ot 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 02/16/2018 REBECCA PORTILLOKEITH Ot Z87.19 PERSONAL HISTORY OF OTHER DISEASES OF 02/16/2018 REBECCA KEITH Ot 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 02/16/2018 REBECCA DO, KEITH K Ot Z90.5 ACQUIRED ABSENCE OF KIDNEY 02/16/2018 REBECCA DOKEITH K Ot Z90.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 BOTH CERVIX AND UTER 02/16/2018 REBECCA DOKEITH Ot Z90.79 ACQUIRED ABSENCE OF OTHER GENITAL ORGAN( 02/16/2018 REBECCA DOKEITH K Ot Z90.89 ACQUIRED ABSENCE OF OTHER ORGANS 02/16/2018 REBECCA DOKEITH Ot Z98.890 OTHER SPECIFIED POSTPROCEDURAL STATES 05/09/2018 MICKEY KENNEDY Ot F32.9 MAJOR DEPRESSIVE DISORDER, SINGLE EPISOD 05/09/2018 MICKEY KENNEDY Ot F41.9 ANXIETY DISORDER, UNSPECIFIED 05/09/2018 MICKEY KENNEDY Ot I10 ESSENTIAL (PRIMARY) HYPERTENSION 05/09/2018 MICKEY KENNEDY Ot I25.10 ATHSCL HEART DISEASE OF [place] CORONARY 05/09/2018 MICKEY KENNEDY Ot M10.9 GOUT, [...] TOBACCO SMO 05/09/2018 MICKEY KENNEDY Ot Z79.82 SEWAGE RETICULATION DRAFTING OFFICER (CURRENT) USE OF ASPIRIN 05/09/2018 MAGO KENNEDYIS [...] LEFT LOWER LEG 05/10/2018 MILTON CRYSTAL, HENRY Rodgers Ot M79.662 PAIN IN LEFT LOWER LEG 05/10/2018 MILTON CRYSTAL, HENRY T Ot M79.662 PAIN IN LEFT LOWER LEG 05/10/2018 MILTON CRYSTAL, HENRY T Ot M79.605 PAIN IN LEFT LEG 05/12/2018 MICKEY KENNEDY Ot F32.9 MAJOR DEPRESSIVE DISORDER, SINGLE EPISOD 05/12/2018 MAGO KENNEDYIS Ot F41.9 ANXIETY DISORDER, UNSPECIFIED 05/12/2018 MAGO KENNEDYIS Ot I10 ESSENTIAL (PRIMARY) HYPERTENSION 05/12/2018 MAGO KENNEDYIS Ot I25.10 ATHSCL HEART DISEASE OF [place] CORONARY 05/12/2018 MAGO KENNEDYIS Ot M10.9 GOUT, UNSPECIFIED 05/12/2018 MAGO KENNEDYIS Ot M25.572 PAIN IN LEFT ANKLE AND JOINTS OF LEFT FO 05/12/2018 MAGO KENNEDYIS Ot M32.9 SYSTEMIC LUPUS ERYTHEMATOSUS, UNSPECIFIE 05/12/2018 MAGO KENNEDYIS Ot R11.2 NAUSEA WITH VOMITING, UNSPECIFIED 05/12/2018 MAGO KENNEDYIS Ot R19.7 DIARRHEA, UNSPECIFIED 05/12/2018 MAGO KENNEDYIS Ot Z77.22 CNTCT W AND EXPSR TO ENVIRON TOBACCO SMO 05/12/2018 MAGO KENNEDYIS Ot Z79.82 SEWAGE RETICULATION DRAFTING OFFICER (CURRENT) USE OF ASPIRIN 05/12/2018 MAGO KENNEDYIS Ot Z85.41 PERSONAL HISTORY OF MALIGNANT NEOPLASM O 05/12/2018 MAGO KENNEDYIS Ot Z87.19 PERSONAL HISTORY OF OTHER DISEASES OF TH 05/12/2018 MAGO KENNEDYIS Ot 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 05/12/2018 MAGO KENNEDYIS Ot Z90.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 BOTH CERVIX AND UTER 05/12/2018 MAGO KENNEDYIS Ot Z90.89 ACQUIRED ABSENCE OF OTHER ORGANS 05/12/2018 MAGO KENNEDYIS Ot Z98.890 OTHER SPECIFIED POSTPROCEDURAL STATES 05/12/2018 CANDI CRYSTAL, KASIA Canas Ot V72.84 EXAM PRE-OPERATIVE NOS 05/12/2018 CANDI CRYSTAL, KASIA Canas Ot V72.84 EXAM PRE-OPERATIVE NOS 05/12/2018 DEJA ZHONG DINING CAR WAITER/WAITRESS Ot 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, 05/12/2018 DEJA ZHONG DINING CAR WAITER/WAITRESS Ot Z13.820 ENCOUNTER FOR SCREENING FOR OSTEOPOROSIS 05/12/2018 DEJA ZHONG DINING CAR WAITER/WAITRESS Ot Z78.0 ASYMPTOMATIC MENOPAUSAL STATE 05/12/2018 HENRY [...] SINGLE EPISOD 07/20/2018 HERNAN CRUZ MD Ot F41 .9 ANXIETY DISORDER, UNSPECIFIED 07/20/2018 HERNAN CRUZ MD Ot G47.30 SLEEP APNEA, UNSPECIFIED 07/20/2018 HERNAN CRUZ MD Ot 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, LEFT EYE, OSIEL 07/20/2018 HERNAN CRUZ MD Ot I10 ESSENTIAL (PRIMARY) HYPERTENSION 07/20/2018 HERNAN CRUZ MD Ot I25.10 ATHSCL HEART DISEASE OF [place] CORONARY 07/20/2018 HERNAN CRUZ MD Ot I34 .0 NONRHEUMATIC MITRAL (VALVE) INSUFFICIENC 07/20/2018 HERNAN CRUZ MD Ot I63 .9 CEREBRAL INFARCTION, UNSPECIFIED 07/20/2018 HERNAN CRUZ MD Ot I65.21 OCCLUSION AND STENOSIS OF RIGHT CAROTID 07/20/2018 HERNAN CRUZ MD Ot I89 .0 LYMPHEDEMA, NOT ELSEWHERE CLASSIFIED 07/20/2018 HERNAN CRUZ MD Ot M19.91 PRIMARY OSTEOARTHRITIS, UNSPECIFIED SITE 07/20/2018 ANTHONYHERNAN BO MD, Ot N39 .0 URINARY TRACT INFECTION, SITE NOT SPECIF 07/20/2018 HERNAN CRUZ MD, Ot 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 OF ANTICOAGULANT 07/20/2018 HERNAN CRUZ MD, Ot Z85.41 PERSONAL HISTORY OF MALIGNANT NEOPLASM O 07/20/2018 HERNAN CRUZ MD, Ot 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 07/20/2018 HERNAN CRUZ MD, Ot Z86.718 PERSONAL HISTORY OF OTHER VENOUS THROMBO 07/20/2018 HERNAN CRUZ MD, Ot Z91.19 PATIENT'S NONCOMPLIANCE W [facility] 07/20/2018 HERNAN CRUZ MD, Ot Z92.21 PERSONAL HISTORY OF ANTINEOPLASTIC CHEMO 07/21/2018 HERNAN CRUZ MD, Ot E78.00 PURE HYPERCHOLESTEROLEMIA, UNSPECIFIED 07/21/2018 HERNAN CRUZ MD, Ot E78 .2 MIXED HYPERLIPIDEMIA 07/21/2018 HERNAN CRUZ MD, Ot E78 .5 HYPERLIPIDEMIA, UNSPECIFIED 07/21/2018 HERNAN CRUZ MD, Ot E87 .6 HYPOKALEMIA 07/21/2018 HERNAN CRUZ MD Ot F17.210 NICOTINE DEPENDENCE, CIGARETTES, UNCOMPL 07/21/2018 HERNAN CRUZ MD Ot F32 .9 MAJOR DEPRESSIVE DISORDER, SINGLE EPISOD 07/21/2018 HERNAN CRUZ MD, Ot F41 .9 ANXIETY DISORDER, UNSPECIFIED 07/21/2018 HERNAN CRUZ MD Ot G47.30 SLEEP APNEA, UNSPECIFIED 07/21/2018 HERNAN CRUZ MD Ot 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, LEFT 07/21/2018 HERNAN CRUZ MD Ot 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, LEFT EYE, OSIEL 07/21/2018 HERNAN CRUZ MD Ot I10 ESSENTIAL (PRIMARY) HYPERTENSION 07/21/2018 HERNAN CRUZ MD, Ot I25.10 ATHSCL HEART DISEASE OF [place] CORONARY 07/21/2018 HERNAN CRUZ MD Ot I34 .0 NONRHEUMATIC MITRAL (VALVE) INSUFFICIENC 07/21/2018 ANTHONY MD, HERNAN N Ot I63 .9 CEREBRAL INFARCTION, UNSPECIFIED 07/21/2018 [...] SPECIF 07/21/2018 HERNAN CRUZ MD, Ot Z79.01 PENITENTIARY (CURRENT) USE OF ANTICOAGULANT 07/21/2018 HERNAN CRUZ [...] Ot Z91.81 HISTORY OF FALLING 07/21/2018 HERNAN CRZU MD, Ot Z92.21 PERSONAL HISTORY OF ANTINEOPLASTIC CHEMO 07/31/2018 SERINA DEL REAL DO Ot E78.5 HYPERLIPIDEMIA, UNSPECIFIED 07/31/2018 SERINA DEL REAL DO Ot F17.21 0 NICOTINE DEPENDENCE, CIGARETTES, UNCOMPL 07/31/2018 SERINA DEL REAL DO Ot F32.9 MAJOR DEPRESSIVE DISORDER, SINGLE EPISOD 07/31/2018 ESRINA DEL REAL DO Ot F41.9 ANXIETY DISORDER, UNSPECIFIED 07/31/2018 DEL REAL DO, SERINA Ot H53.46 2 HOMONYMOUS BILATERAL FIELD DEFECTS, LEFT 07/31/2018 GT PORTILLO SERINA Ot I10 ESSENTIAL (PRIMARY) HYPERTENSION 07/31/2018 GT PORTILLO SERINA Ot I25.10 ATHSCL HEART DISEASE OF [place] CORONARY 07/31/2018 GT PORTILLO SERINA Ot I65.23 [...] WEAKNESS 07/31/2018 GT PORTILLO SERINA Ot Z79.01 PENITENTIARY (CURRENT) USE OF ANTICOAGULANT 07/31/2018 GT PORTILLO [...] ALVARADO Ot I25.10 ATHSCL HEART DISEASE OF [place] CORONARY 10/30/2018 ALDEN ALVARADO Ot I73.9 PERIPHERAL VASCULAR DISEASE, UNSPECIFIED 10/30/2018 ALDEN ALVARADO Ot L03.031 CELLULITIS OF RIGHT TOE 10/30/2018 ALDEN ALVARADO Ot M32.9 SYSTEMIC LUPUS ERYTHEMATOSUS, UNSPECIFIE 10/30/2018 ALDEN ALVARADO Ot M79.671 PAIN IN RIGHT FOOT 10/30/2018 ALDEN ALVARADO Ot N18.9 CHRONIC KIDNEY DISEASE, UNSPECIFIED 10/30/2018 ALDEN ALVARADO Ot Z79.82 PENITENTIARY (CURRENT) USE OF ASPIRIN 10/30/2018 ALDEN ALVARADO [...] ALVARADO Ot I25.10 ATHSCL HEART DISEASE OF [place] CORONARY 11/03/2018 ALDEN ALVARADO Ot I73.9 PERIPHERAL VASCULAR DISEASE, UNSPECIFIED 11/03/2018 ALDEN ALVARADO Ot L03.031 CELLULITIS OF RIGHT TOE 11/03/2018 ALDEN ALVARADO Ot M32.9 SYSTEMIC LUPUS ERYTHEMATOSUS, UNSPECIFIE 11/03/2018 ALDEN ALVARADO Ot M79.671 PAIN IN RIGHT FOOT 11/03/2018 ALDEN ALVARADO Ot N18.9 CHRONIC KIDNEY DISEASE, UNSPECIFIED 11/03/2018 ALDEN ALVARADO Ot Z79.82 PENITENTIARY (CURRENT) USE OF ASPIRIN 11/03/2018 ALDEN ALVARADO [...] OF OTHER ORGANS 12/17/2018 CANDI CRYSTAL, KASIA Canas Ot V72.84 EXAM PRE-OPERATIVE NOS 12/17/2018 DEJA ZHONG APRN Ot 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, 12/17/2018 DEJA ZHONG APRN Ot Z13.820 ENCOUNTER FOR SCREENING FOR OSTEOPOROSIS 12/17/2018 DEJA ZHONG APRN Ot Z78.0 ASYMPTOMATIC MENOPAUSAL STATE 12/17/2018 MILTON CRYSTAL, HENRY Rodgers Ot M79.605 PAIN IN LEFT LEG 12/21/2018 DEJA ZHONG APRN Ot M85.88 OT DISRD OF BONE DENSITY AND STRUCTURE, 12/21/2018 DEJA ZHONG BRANDEE Ot Z13.820 ENCOUNTER FOR SCREENING FOR OSTEOPOROSIS 12/21/2018 DEJA ZHONG DINING CAR WAITER/WAITRESS Ot Z78.0 ASYMPTOMATIC MENOPAUSAL STATE 12/21/2018 MILTON CRYSTAL, HENRY Rodgers Ot M79.605 PAIN IN LEFT LEG 12/23/2018 HERNAN CRUZ MD Ot A41 .9 SEPSIS, UNSPECIFIED ORGANISM 12/23/2018 HERNAN CRUZ MD Ot B96.20 UNSP ESCHERICHIA COLI THE CAUSE OF DI 12/23/2018 HERNAN CRUZ MD Ot E78.00 PURE HYPERCHOLESTEROLEMIA, UNSPECIFIED 12/23/2018 HERNAN CRUZ MD Ot F17.210 NICOTINE DEPENDENCE, CIGARETTES, UNCOMPL 12/23/2018 HERNAN CRUZ MD Ot F41 .8 OTHER SPECIFIED ANXIETY DISORDERS 12/23/2018 HERNAN CRUZ MD Ot G62 .9 POLYNEUROPATHY, UNSPECIFIED 12/23/2018 HERNAN CRUZ MD Ot I25.10 ATHSCL HEART DISEASE OF [place] CORONARY 12/23/2018 HERNAN CRUZ MD Ot I82 .3 EMBOLISM AND THROMBOSIS OF RENAL VEIN 12/23/2018 HERNAN CRUZ MD Ot I95 .9 HYPOTENSION, UNSPECIFIED 12/23/2018 HERNAN CRUZ MD Ot M19.90 UNSPECIFIED OSTEOARTHRITIS, UNSPECIFIED 12/23/2018 HERNAN CRUZ MD Ot M1A.9XX0 CHRONIC GOUT, UNSPECIFIED, WITHOUT TOPHU 12/23/2018 HERNAN CRUZ MD Ot M25.511 PAIN IN RIGHT SHOULDER 12/23/2018 HERNAN CRUZ MD Ot M86 .9 OSTEOMYELITIS, UNSPECIFIED 12/23/2018 HERNAN CRUZ MD Ot N17 .9 ACUTE KIDNEY FAILURE, UNSPECIFIED 12/23/2018 HERNAN CRUZ MD Ot N39 .0 URINARY TRACT INFECTION, SITE NOT SPECIF 12/23/2018 HERNAN CRUZ MD Ot Z79.82 PENITENTIARY (CURRENT) USE OF ASPIRIN 12/23/2018 HERNAN CRUZ MD Ot Z79.891 PENITENTIARY (CURRENT) USE OF OPIATE ANALGE 12/23/2018 HERNAN CRUZ MD, Ot Z79.899 OTHER PENITENTIARY (CURRENT) DRUG THERAPY 12/23/2018 HERNAN CRUZ MD, [...] APRN Ot I25.10 ATHSCL HEART DISEASE OF [place] CORONARY 12/25/2018 YUDI MORRISON APRN Ot M86 .9 OSTEOMYELITIS, UNSPECIFIED 12/25/2018 YUDI MORRISON APRN Ot N39 .0 URINARY TRACT INFECTION, SITE NOT SPECIF 12/25/2018 YUDI MORRISON APRN Ot 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 OF ANTICOAGULANT 12/25/2018 YUDI MORRISON APRN Ot Z79.52 SEWAGE RETICULATION DRAFTING OFFICER (CURRENT) USE OF SYSTEMIC STER 12/25/2018 YUDI MORRISON APRN Ot Z79.82 PENITENTIARY (CURRENT) USE OF ASPIRIN 12/25/2018 YUDI MORRISON [...] APRN Ot I25.10 ATHSCL HEART DISEASE OF [place] CORONARY 12/30/2018 YUDI MORRISON APRN Ot M86 .9 OSTEOMYELITIS, UNSPECIFIED 12/30/2018 YUDI MORRISON APRN Ot N39 .0 URINARY TRACT INFECTION, SITE NOT SPECIF 12/30/2018 YUDI MORRISON APRN Ot 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 OF ANTICOAGULANT 12/30/2018 YUDI MORRISON APRN Ot Z79.52 SEWAGE RETICULATION DRAFTING OFFICER (CURRENT) USE OF SYSTEMIC STER 12/30/2018 YUDI MORRISON APRN Ot Z79.82 PENITENTIARY (CURRENT) USE OF ASPIRIN 12/30/2018 YUDI MORRISON [...] APRN Ot I25.10 ATHSCL HEART DISEASE OF [place] CORONARY 01/06/2019 YUDI MORRISON APRN Ot M86 .9 OSTEOMYELITIS, UNSPECIFIED 01/06/2019 YUDI MORRISON APRN Ot N39 .0 URINARY TRACT INFECTION, SITE NOT SPECIF 01/06/2019 YUDI MORRISON APRN Ot Z79.01 PENITENTIARY (CURRENT) USE OF ANTICOAGULANT 01/06/2019 YUDI MORRISON APRN Ot Z79.52 SEWAGE RETICULATION DRAFTING OFFICER (CURRENT) USE OF SYSTEMIC STER 01/06/2019 YUDI MORRISON APRN Ot Z79.82 SEWAGE RETICULATION DRAFTING OFFICER (CURRENT) USE OF ASPIRIN 01/06/2019 YUDI MORRISON [...] Z90.89 ACQUIRED ABSENCE OF OTHER ORGANS 01/13/2019 ANTHONY CRYSTAL, HERNAN Mead Ot M86.8X8 OTHER OSTEOMYELITIS, OTHER SITE 01/14/2019 PIERO SOUSA MD, Ot I70.235 ATHSCL [place] ARTERIES OF RIGHT LEG W UL 01/14/2019 PIERO SOUSA MD, Ot I70.245 ATHSCL [place] ARTERIES OF LEFT LEG W ULC 01/14/2019 [...] TOXIC EFFECT OF TOBACCO CIGARETTES, SELF 01/14/2019 ANTHONY CRYSTAL, HERNAN N Ot M86.8X8 OTHER OSTEOMYELITIS, OTHER SITE 01/15/2019 ANTHONY CRYSTAL HERNAN N Ot M86.8X8 OTHER OSTEOMYELITIS, OTHER SITE 01/16/2019 ANTHONY CRYSTAL HERNAN N Ot M86.8X8 OTHER OSTEOMYELITIS, OTHER SITE 01/17/2019 ANTHONY CRYSTAL HERNAN N Ot M86.8X8 OTHER OSTEOMYELITIS, OTHER SITE 01/18/2019 ANTHONY CRYSTAL HERNAN N Ot M86.8X8 OTHER OSTEOMYELITIS, OTHER SITE 01/19/2019 ANTHONY CRYSTAL HERNAN N Ot M86.8X8 OTHER OSTEOMYELITIS, OTHER SITE 01/20/2019 ANTHONY CRYSTAL HERNAN N Ot M86.8X8 OTHER OSTEOMYELITIS, OTHER SITE 01/21/2019 ANTHONY CRYSTAL, HERNAN N Ot M86.8X8 OTHER OSTEOMYELITIS, OTHER SITE 01/22/2019 ANTHONY CRYSTAL HERNAN N Ot M86.8X8 OTHER OSTEOMYELITIS, OTHER SITE 01/23/2019 ANTHONY CRYSTAL, HERNAN N Ot M86.8X8 OTHER OSTEOMYELITIS, OTHER SITE 01/24/2019 ANTHONY CRYSTAL HERNAN N Ot M86.8X8 OTHER OSTEOMYELITIS, OTHER SITE 01/25/2019 ANTHONY CRYSTAL HERNAN N Ot M86.8X8 OTHER OSTEOMYELITIS, OTHER SITE 01/26/2019 ANTHONY CRYSTAL HERNAN N Ot M86.8X8 OTHER OSTEOMYELITIS, OTHER SITE 01/27/2019 HERNAN CRUZ MD Ot M86.8X8 OTHER OSTEOMYELITIS, OTHER SITE 01/28/2019 HERNAN CRUZ MD Ot M86.8X8 OTHER OSTEOMYELITIS, OTHER SITE 01/28/2019 PIERO SOUSA MD Ot I70.235 ATHSCL [place] ARTERIES OF RIGHT LEG W 01/28/2019 PIERO SOUSA MD Ot I70.245 ATHSCL [place] ARTERIES OF LEFT LEG W [facility] 01/28/2019 PIERO SOUSA MD, Ot L97.512 NON-PRS CHRONIC ULCER OTH PRT RIGHT FOOT 01/28/2019 PIERO SOUSA MD, Ot L97.522 NON-PRS CHRONIC ULCER OTH PRT LEFT FOOT 01/28/2019 PIERO SOUSA MD, Ot M32.19 OTH ORGAN [...] 02/02/2019 PIERO SOUSA MD Ot I70.235 ATHSCL [place] ARTERIES OF RIGHT LEG W 02/02/2019 PIERO SOUSA MD Ot I70.245 ATHSCL [place] ARTERIES OF LEFT LEG W [facility] 02/02/2019 PIERO SOUSA MD Ot I96 GANGRENE, NOT ELSEWHERE CLASSIFIED 02/02/2019 PIERO SOUSA MD Ot L97.512 NON-PRS CHRONIC ULCER OTH PRT RIGHT FOOT 02/02/2019 PIERO SOUSA MD, Ot L97.522 NON-PRS CHRONIC ULCER OTH PRT LEFT FOOT 02/02/2019 PIERO SOUSA MD Ot M32.19 OTH ORGAN OR SYSTEM INVOLV IN SYSTEMIC L 02/02/2019 PIERO SOUSA MD, Ot N18 .4 CHRONIC KIDNEY DISEASE, STAGE 4 (SEVERE) 02/02/2019 PIERO SOUSA MD Ot T65.222A TOXIC EFFECT OF TOBACCO CIGARETTES, SELF 02/02/2019 ANTHONY CRYSTAL, HERNAN Mead Ot M86.8X8 OTHER OSTEOMYELITIS, OTHER SITE 02/03/2019 HERNAN CRUZ MD Ot M86.8X8 OTHER OSTEOMYELITIS, OTHER SITE 02/12/2019 HERNAN CRUZ MD Ot M86.8X8 OTHER OSTEOMYELITIS, OTHER SITE 02/15/2019 PIERO SOUSA MD, Ot F17.218 NICOTINE DEPENDENCE, CIGARETTES, W OTH D 02/15/2019 PIERO SOUSA MD Ot I70.235 ATHSCL [place] ARTERIES OF RIGHT LEG W UL 02/15/2019 PIERO SOUSA MD Ot I70.245 ATHSCL [place] ARTERIES OF LEFT LEG W ULC 02/15/2019 PIERO SOUSA MD Ot I96 [place], NOT ELSEWHERE CLASSIFIED 02/15/2019 PIERO SOUSA MD Ot L97.512 NON-PRS CHRONIC [...] OF TOBACCO CIGARETTES, SELF 02/16/2019 PIERO SOUSA MD Ot F17.218 NICOTINE DEPENDENCE, CIGARETTES, W OTH D 02/16/2019 PIERO SOUSA MD Ot I70.235 ATHSCL [place] ARTERIES OF RIGHT LEG W UL 02/16/2019 PIERO SOUSA MD Ot I96 [place]GR[place], NOT ELSEWHERE CLASSIFIED 02/16/2019 PIERO SOUSA MD Ot L97.512 NON-PRS CHRONIC ULCER OTH PRT RIGHT FOOT 02/16/2019 PIERO SOUSA MD, Ot M32.19 OTH ORGAN OR SYSTEM INVOLV IN SYSTEMIC L 02/16/2019 PIERO SOUSA MD Ot N18 .4 CHRONIC KIDNEY DISEASE, STAGE 4 (SEVERE) 02/16/2019 PIERO SOUSA MD, Ot T65.222A TOXIC EFFECT OF TOBACCO CIGARETTES, SELF 02/22/2019 ANTHONY CRYSTAL, HERNAN Mead Ot M86.8X8 OTHER OSTEOMYELITIS, OTHER SITE 02/24/2019 HERNAN CRUZ MD Ot M86.8X8 OTHER OSTEOMYELITIS, OTHER SITE 03/04/2019 ANTHONY CRYSTAL, HERNAN Mead Ot M86.8X8 OTHER OSTEOMYELITIS, OTHER SITE 03/04/2019 ANTHONY CRYSTAL, HERNAN Mead Ot M86.8X8 OTHER OSTEOMYELITIS, OTHER SITE 05/04/2019 DEJA ZHONG DINING CAR WAITER/WAITRESS Ot 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, 05/04/2019 DEJA ZHONG DINING CAR WAITER/WAITRESS Ot Z13.820 ENCOUNTER FOR SCREENING FOR OSTEOPOROSIS 05/04/2019 DEJA ZHONG DINING CAR WAITER/WAITRESS Ot Z78.0 ASYMPTOMATIC MENOPAUSAL STATE 05/04/2019 MILTON CRYSTAL, HENRY Rodgers Ot M79.605 PAIN IN LEFT LEG 05/04/2019 PIERO SOUSA MD Ot I70.235 ATHSCL [place] ARTERIES OF RIGHT LEG W 05/04/2019 PIERO SOUSA MD Ot I70.245 ATHSCL [place] ARTERIES OF LEFT LEG W UL 05/04/2019 PIERO SOUSA MD Ot L97.512 NON-PRS [...] 05/04/2019 PIERO SOUSA MD Ot I70.235 ATHSCL [place] ARTERIES OF RIGHT LEG W 05/04/2019 MERRY MD, PIERO G Ot I70.245 ATHSCL [place] ARTERIES OF LEFT LEG W [facility] 05/04/2019 PIERO SOUSA MD Ot I96 [...] 05/04/2019 PIERO SOUSA MD Ot I70.235 ATHSCL [place] ARTERIES OF RIGHT LEG W 05/04/2019 PIERO SOUSA MD Ot I70.245 ATHSCL [place] ARTERIES OF LEFT LEG W [facility] 05/04/2019 PIERO SOUSA MD Ot I96 [...] 05/04/2019 PIERO SOUSA MD Ot I70.235 ATHSCL [place] ARTERIES OF RIGHT LEG W 05/04/2019 PIERO SOUSA MD Ot I70.245 ATHSCL [place] ARTERIES OF LEFT LEG W [facility] 05/04/2019 PIERO SOUSA MD Ot I96 [place]GR[place], NOT ELSEWHERE CLASSIFIED 05/04/2019 PIERO SOUSA MD, Ot L97.512 NON-PRS CHRONIC ULCER OTH PRT RIGHT FOOT 05/04/2019 PIERO SOUSA MD, Ot L97.522 NON-PRS CHRONIC [...] 05/04/2019 PIERO SOUSA MD Ot I70.235 ATHSCL [place] ARTERIES OF RIGHT LEG W UL 05/04/2019 PIERO SOUSA MD Ot I96 [place], NOT ELSEWHERE CLASSIFIED 05/04/2019 PIERO SOUSA MD, Ot L97.512 NON-PRS CHRONIC ULCER OTH PRT RIGHT FOOT 05/04/2019 PIERO SOUSA MD, Ot M32.19 [...] SERINA Ot I25.10 ATHSCL HEART DISEASE OF [place] CORONARY 05/06/2019 DEL REAL DO, SERINA Ot [...] TO ENVIRON TOBACCO SMO 05/06/2019 DEL REAL DO, SERINA Ot Z79.01 PENITENTIARY (CURRENT) USE OF ANTICOAGULANT 05/06/2019 DEL REAL DO, SERINA Ot Z79.2 SEWAGE RETICULATION DRAFTING OFFICER (CURRENT) USE OF ANTIBIOTICS 05/06/2019 DEL REAL DO SERINA Ot Z79.82 SEWAGE RETICULATION DRAFTING OFFICER (CURRENT) USE OF ASPIRIN 05/06/2019 DEL REAL DO, SERINA Ot Z79.89 1 PENITENTIARY (CURRENT) USE OF OPIATE ANALGE 05/06/2019 DEL REAL DO, SERINA Ot Z79.89 9 OTHER SEWAGE RETICULATION DRAFTING OFFICER (CURRENT) DRUG THERAPY 05/06/2019 DEL REAL DO SERINA Ot Z86.73 PRSNL HX OF TIA (TIA), AND CEREB INFRC W 05/06/2019 DEL REAL DO SERINA Ot 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 05/06/2019 DEL REAL DO SERINA Ot Z92.21 PERSONAL HISTORY OF ANTINEOPLASTIC CHEMO 05/06/2019 DEL ERAL DO, SERINA Ot Z92.3 PERSONAL HISTORY OF IRRADIATION 05/06/2019 DEL REAL DO, SERINA Ot E78.00 PURE HYPERCHOLESTEROLEMIA, UNSPECIFIED 05/06/2019 DEL REAL DO, SERINA Ot E78.5 HYPERLIPIDEMIA, UNSPECIFIED 05/06/2019 DEL REAL DO, SERINA Ot F41.9 ANXIETY DISORDER, UNSPECIFIED 05/06/2019 DEL REAL DO, SERINA Ot I12.9 HYPERTENSIVE CHRONIC KIDNEY DISEASE W ST 05/06/2019 DEL REAL DO, SERINA Ot I25.10 ATHSCL HEART DISEASE OF [place] CORONARY 05/06/2019 DEL REAL DO, SERINA Ot [...] TO ENVIRON TOBACCO SMO 05/06/2019 DEL REAL DO, SERINA Ot 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 OF ANTICOAGULANT 05/06/2019 SERINA DEL REAL DO Ot Z79.2 SEWAGE RETICULATION DRAFTING OFFICER (CURRENT) USE OF ANTIBIOTICS 05/06/2019 COY DEL REAL DOI Ot Z79.82 PENITENTIARY (CURRENT) USE OF ASPIRIN 05/06/2019 COY DEL REAL DOI Ot Z79.89 1 PENITENTIARY (CURRENT) USE OF OPIATE ANALGE 05/06/2019 COY DEL REAL DOI Ot Z79.89 9 OTHER SEWAGE RETICULATION DRAFTING OFFICER (CURRENT) DRUG THERAPY 05/06/2019 GT PORTILLO SERINA Ot Z86.73 PRSNL HX OF TIA (TIA), AND CEREB INFRC W 05/06/2019 COY DEL REAL DOI Ot 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 05/06/2019 SERINA DEL REAL DO Ot Z92.21 PERSONAL HISTORY OF ANTINEOPLASTIC CHEMO 05/06/2019 SERINA DEL REAL DO Ot Z92.3 PERSONAL HISTORY OF IRRADIATION 06/06/2019 Ot E78.00 PUR E HYPERCHOLESTEROLEMIA, UNSPECIFIED 06/06/2019 Ot E78.5 HYPE RLIPIDEMIA, UNSPECIFIED 06/06/2019 Ot F17.210 NI COTINE DEPENDENCE, CIGARETTES, UNCOMPL 06/06/2019 Ot F32.9 BRUNO R DEPRESSIVE DISORDER, SINGLE EPISOD 06/06/2019 Ot F41.9 ANXI ETY DISORDER, UNSPECIFIED 06/06/2019 Ot I12.9 HYPE RTENSIVE CHRONIC KIDNEY DISEASE W ST 06/06/2019 Ot I21.4 NON- ST ELEVATION (NSTEMI) MYOCARDIAL INF 06/06/2019 Ot I25.10 ATH SCL HEART DISEASE OF [place] CORONARY 06/06/2019 Ot I65.23 OCC LUSION AND STENOSIS OF [place]IL[place]AL [place] 06/06/2019 Ot 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 06/06/2019 Ot M19.90 UNS PECIFIED OSTEOARTHRITIS, UNSPECIFIED 06/06/2019 Ot M79.7 FIBR OMYALGIA 06/06/2019 Ot N18.4 CHANGE COORDINATOR YENY KIDNEY DISEASE, STAGE 4 (SEVERE) 06/06/2019 Ot Q60.0 MARQUITA L AGENESIS, UNILATERAL 06/06/2019 Ot Z79.01 PAPITO G TERM (CURRENT) USE OF ANTICOAGULANT 06/06/2019 Ot Z79.82 PAPITO G TERM (CURRENT) USE OF ASPIRIN 06/06/2019 Ot Z79.891 LO NG TERM (CURRENT) USE OF OPIATE ANALGE 06/06/2019 Ot Z79.899 OT HER SEWAGE RETICULATION DRAFTING OFFICER (CURRENT) DRUG THERAPY 06/06/2019 Ot Z85.41 PER JOAN HISTORY OF MALIGNANT NEOPLASM O 06/06/2019 Ot 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 06/06/2019 Ot Z86.73 PRS NL HX OF TIA (TIA), AND CEREB INFRC W 06/06/2019 Ot Z90.710 AC QUIRED ABSENCE OF BOTH CERVIX AND UTER 06/06/2019 Ot Z90.89 ACQ UIRED ABSENCE OF OTHER ORGANS 06/06/2019 Ot Z92.21 PER JOAN HISTORY OF ANTINEOPLASTIC CHEMO 06/06/2019 Ot Z95.1 PRES ENCE OF AORTOCORONARY BYPASS GRAFT 06/06/2019 Ot E78.00 PUR E HYPERCHOLESTEROLEMIA, UNSPECIFIED 06/06/2019 Ot E78.5 HYPE RLIPIDEMIA, UNSPECIFIED 06/06/2019 Ot F17.210 NI COTINE DEPENDENCE, CIGARETTES, UNCOMPL 06/06/2019 Ot F32.9 BRUNO R DEPRESSIVE DISORDER, SINGLE EPISOD 06/06/2019 Ot F41.9 ANXI ETY DISORDER, UNSPECIFIED 06/06/2019 Ot I12.9 HYPE RTENSIVE CHRONIC KIDNEY DISEASE W ST 06/06/2019 Ot I21.4 NON- ST ELEVATION (NSTEMI) MYOCARDIAL INF 06/06/2019 Ot I25.10 ATH SCL HEART DISEASE OF [place] CORONARY 06/06/2019 Ot I65.23 OCC LUSION AND STENOSIS OF [place]AL [place] 06/06/2019 Ot 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 06/06/2019 Ot M19.90 UNS PECIFIED OSTEOARTHRITIS, UNSPECIFIED 06/06/2019 Ot M79.7 FIBR OMYALGIA 06/06/2019 Ot N18.4 CHANGE COORDINATOR YENY KIDNEY DISEASE, STAGE 4 (SEVERE) 06/06/2019 Ot Q60.0 MARQUITA L AGENESIS, UNILATERAL 06/06/2019 Ot Z79.01 PAPITO G TERM (CURRENT) USE OF ANTICOAGULANT 06/06/2019 Ot Z79.82 PAPITO G TERM (CURRENT) USE OF ASPIRIN 06/06/2019 Ot Z79.891 LO NG TERM (CURRENT) USE OF OPIATE ANALGE 06/06/2019 Ot Z79.899 OT HER SEWAGE RETICULATION DRAFTING OFFICER (CURRENT) DRUG THERAPY 06/06/2019 Ot Z85.41 PER JOAN HISTORY OF MALIGNANT NEOPLASM O 06/06/2019 Ot 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 06/06/2019 Ot Z86.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 NL HX OF TIA (TIA), AND CEREB INFRC W 06/06/2019 Ot Z90.710 AC QUIRED ABSENCE OF BOTH CERVIX AND UTER 06/06/2019 Ot Z90.89 ACQ UIRED ABSENCE OF OTHER ORGANS 06/06/2019 Ot Z92.21 PER JOAN HISTORY OF ANTINEOPLASTIC CHEMO 06/06/2019 Ot Z95.1 PRES ENCE OF AORTOCORONARY BYPASS GRAFT 10/15/2019 DEJA ZHONG APRN Ot 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, 10/15/2019 DEJA ZHONG APRN Ot Z13.820 ENCOUNTER FOR SCREENING FOR OSTEOPOROSIS 10/15/2019 DEJA ZHONG APRN Ot Z78.0 ASYMPTOMATIC MENOPAUSAL STATE 10/15/2019 MILTON CRYSTAL, HENRY Rodgers Ot M79.605 PAIN IN LEFT LEG 10/15/2019 PIERO SOUSA MD Ot I70.235 ATHSCL [place] ARTERIES OF RIGHT LEG W UL 10/15/2019 PIERO SOUSA MD, Ot I70.245 ATHSCL [place] ARTERIES OF LEFT LEG W ULC 10/15/2019 PIERO SOUSA MD Ot L97.512 NON-PRS CHRONIC ULCER OTH PRT RIGHT FOOT 10/15/2019 PIERO SOUSA MD, Ot L97.522 NON-PRS CHRONIC ULCER OTH PRT LEFT FOOT 10/15/2019 PIERO SOUSA MD Ot M32.19 OTH ORGAN OR SYSTEM INVOLV IN SYSTEMIC L 10/15/2019 PIERO SOUSA MD Ot N18 .4 CHRONIC KIDNEY DISEASE, STAGE 4 (SEVERE) 10/15/2019 PIERO SOUSA MD Ot T65.222A TOXIC EFFECT OF TOBACCO CIGARETTES, SELF 10/15/2019 PIERO SOUSA MD Ot F17.218 NICOTINE DEPENDENCE, CIGARETTES, W OTH D 10/15/2019 PIERO SOUSA MD Ot I70.235 ATHSCL [place] ARTERIES OF RIGHT LEG W UL 10/15/2019 PIERO SOUSA MD Ot I70.245 ATHSCL [place] ARTERIES OF LEFT LEG W ULC 10/15/2019 PIERO SOUSA MD Ot I96 [place]GR[place], NOT ELSEWHERE CLASSIFIED 10/15/2019 PIERO SOUSA MD Ot L97.512 NON-PRS CHRONIC ULCER OTH PRT RIGHT FOOT 10/15/2019 PIERO SOUSA MD Ot L97.522 NON-PRS CHRONIC ULCER OTH PRT LEFT FOOT 10/15/2019 PIERO SOUSA MD Ot M32.19 OTH ORGAN OR SYSTEM INVOLV IN SYSTEMIC L 10/15/2019 PIERO SOUSA MD Ot N18 .4 CHRONIC KIDNEY DISEASE, STAGE 4 (SEVERE) 10/15/2019 PIERO SOUSA MD Ot T65.222A TOXIC EFFECT OF TOBACCO CIGARETTES, SELF 10/15/2019 PIERO SOUSA MD Ot F17.218 NICOTINE DEPENDENCE, CIGARETTES, W OTH D 10/15/2019 PIERO SOUSA MD Ot I70.235 ATHSCL [place] ARTERIES OF RIGHT LEG W 10/15/2019 PIERO SOUSA MD Ot I70.245 ATHSCL [place] ARTERIES OF LEFT LEG W [facility] 10/15/2019 PIERO SOUSA MD Ot I96 [place]GR[place], NOT ELSEWHERE CLASSIFIED 10/15/2019 PIERO SOUSA MD Ot L97.512 NON-PRS CHRONIC ULCER OTH PRT RIGHT FOOT 10/15/2019 PIERO SOUSA MD Ot L97.522 NON-PRS CHRONIC ULCER OTH PRT LEFT FOOT 10/15/2019 PIERO SOUSA MD Ot M32.19 OTH ORGAN OR SYSTEM INVOLV IN SYSTEMIC L 10/15/2019 PIERO SOUSA MD Ot N18 .4 CHRONIC KIDNEY DISEASE, STAGE 4 (SEVERE) 10/15/2019 PIERO SOUSA MD Ot T65.222A TOXIC EFFECT OF TOBACCO CIGARETTES, SELF 10/15/2019 PIERO SOUSA MD Ot F17.218 NICOTINE DEPENDENCE, CIGARETTES, W OTH D 10/15/2019 PIERO SOUSA MD Ot I70.235 ATHSCL [place] ARTERIES OF RIGHT LEG W 10/15/2019 PIERO SOSUA MD Ot I70.245 ATHSCL [place] ARTERIES OF LEFT LEG W [facility] 10/15/2019 PIERO SOUSA MD Ot I96 G[place]GR[place], NOT ELSEWHERE CLASSIFIED 10/15/2019 PIERO SOUSA MD Ot L97.512 NON-PRS CHRONIC ULCER OTH PRT RIGHT FOOT 10/15/2019 PIERO SOUSA MD Ot L97.522 NON-PRS CHRONIC ULCER OTH PRT LEFT FOOT 10/15/2019 PIERO SOUSA MD Ot M32.19 OTH ORGAN OR SYSTEM INVOLV IN SYSTEMIC L 10/15/2019 PIERO SOUSA MD Ot N18 .4 CHRONIC KIDNEY DISEASE, STAGE 4 (SEVERE) 10/15/2019 PIERO SOUSA MD Ot T65.222A TOXIC EFFECT OF TOBACCO CIGARETTES, SELF 10/15/2019 PIERO SOUSA MD Ot F17.218 NICOTINE DEPENDENCE, CIGARETTES, W OTH D 10/15/2019 PIERO SOUSA MD Ot I70.235 ATHSCL [place] ARTERIES OF RIGHT LEG W UL 10/15/2019 PIERO SOUSA MD Ot I96 [place]GR[place], NOT ELSEWHERE CLASSIFIED 10/15/2019 PIERO SOUSA MD, Ot L97.512 NON-PRS CHRONIC ULCER OTH PRT RIGHT FOOT 10/15/2019 PIERO SOUSA MD Ot M32.19 OTH ORGAN OR SYSTEM INVOLV IN SYSTEMIC L 10/15/2019 PIERO SOUSA MD Ot N18 .4 CHRONIC KIDNEY DISEASE, STAGE 4 (SEVERE) 10/15/2019 PIERO SOUSA MD Ot T65.222A TOXIC EFFECT OF TOBACCO CIGARETTES, SELF Procedures Code Description [place] [address] MAMM OGRAM DX, RIGHT 04/13/2012 70651 MAMM OGRAM, SCREENING 04/14/2012 80323 ROUT INE VENIPUNCTURE 05/12/2012 52583 LIPI D PANEL 05/12/2012 81898 CBC 05/12/2012 45913 CMP 05/12/2012 8512191 GF R CALC (RESULT ONLY) 05/12/2012 57215 TSH 05/12/2012 57810 TRIG JOSY POINT INJ/1-2 MUS 07/14/2012 98723 ROUT INE VENIPUNCTURE 08/10/2012 73075 CMP 08/10/2012 45794 LIPI D PANEL 08/10/2012 [id number] GF R CALC (RESULT ONLY) 08/10/2012 63111 CULT URE URINE 09/21/2012 36432 UA W / CULTURE IF INDICATED 09/21/2012 88579 ROUT INE VENIPUNCTURE 11/24/2012 53883 MARQUITA L PROFILE 11/24/2012 79162 LIPI D PANEL 11/24/2012 55314 MAGNESIUM 11/24/2012 5570323 GF R CALC (RESULT ONLY) 11/24/2012 PRO/CRE UR INE PROTEIN TO CREATNINE RATIO 11/24/2012 OtolarynPiero Huber 11/30/2012 17385 ROUT INE VENIPUNCTURE 01/22/2013 26451 CRP 01/22/2013 32410 RA FACTOR 01/23/2013 ANAANA SOPHIE ANALYZER (SCREEN) 01/23/2013 17791 CCP ANTIBODY 01/23/[address] SOPHIE (RESULT ONLY) 01/25/2013 3393618 IN T DNA (RESULT ONLY) 01/25/2013 6875394 IN T MICHELINE (RESULT ONLY) 01/25/2013 69703 DNA ANTIBODY (DOUBLE STRAND) 01/26/2013 78212 MICHELINE SCR 01/26/2013 59517 JOIN T INJECTION- LARGE JOINT (SPECIFY MEDCIN DESCRIPTION) 02/22 70125 ROUT INE VENIPUNCTURE 02/24/2013 33472 EYE EXAM PERFORMED 02/24/2013 89199 CBC 02/24/2013 60196 INFL UENZA A & B (IN-HOUSE) 03/11/2013 02867 EYE EXAM PERFORMED 03/29/2013 47163 OXIMETRY 04/19/2013 50568 OXIMETRY 05/05/2013 55980 ROUT INE VENIPUNCTURE 2013 46997 CBC 2013 19024 UA W / CULTURE IF INDICATED 09/13/2013 77120 INFL UENZA A & B (IN-HOUSE) 05/04/2014 09505 OXIMETRY 05/04/2014 Results Test Result Range Complete [...] culture NO NRG CBC With Differential/Platelet - 7 10:50 WBC 12.6 x10E3/uL 3.4-10.8 RBC 5.28 x10E6/uL 3.77-5.28 Hemoglobin 15.9 g/dL 11.1-15.9 Hematocrit 46.8 % 34.0-46.6 MCV 89 fL 79-97 MCH 30.1 pg 26.6-33.0 MCHC 34.0 g/dL 31.5-35.7 RDW 14.0 % 12.3-15.4 Platelets 330 x10E3/uL 150-379 Neutrophils 77 % Lymphs 18 % Monocytes 5 % Eos 0 % Basos 0 % Neutrophils (Absolute) 9.6 x10E3/uL 1.4- 7.0 Lymphs (Absolute) 2.3 x10E3/uL 0.7-3.1 Monocytes(Absolute) 0.6 x10E3/uL 0.1-0.9 Eos (Absolute) 0.1 x10E3/uL 0.0-0.4 Baso (Absolute) 0.0 x10E3/uL 0.0-0.2 Immature Granulocytes 0 % Immature Grans (Abs) 0.0 x10E3/uL 0.0-0. 1 Hematology Comments: Note: Comp. Metabolic Panel (14) - 12/20/16 10 :50 Glucose, Serum 112 mg/dL 65-99 BUN 17 [...] ISOMERS - 06/25/17 19:08 Prescribed Drug 1 [place](TM) NRG COMMENT NRG Amphetamine NEGATIVE ng/mL <250 [...] Automated erythrocyte mean corpuscular volume 86 [ [facility]] 80-99 Automated erythrocyte mean corpuscular h emoglobin [...] OF GROWTH Isolated NRG Bacterial blood culture [id number] NRG Bacterial blood culture - 12/19/17 09:24 [...] culture - 07/15/18 12:34 Bacterial urine culture [id number] NRG COLONY COUNT >100,000/ML NRG RML Sensitivity [...] mg/dL 8.5-10.1 Automated blood complete blood count ([facility]) panel - 07/22/18 06:45 Blood leukocytes automated [...] blood by coagulation as say 2.9 0.8-1.4 [facility] - 08/13/18 10:23 GLUCOSE 86 mg/dL 65-99 UREA NITROGEN (BUN) 16 mg/dL 7-25 CREATININE 1.51 mg/dL 0.60-0.93 eGFR NON-AFR. [place] 34 mL/min/1.73m2 > OR = 60 eGFR [...] - 11/04/18 15 :34 Prescribed Drug 1 [place](TM) NRG Creatinine 90.2 mg/dL > or = [...] 10:40 Bacteria identification in wound by culture [id number] NRG FREE TEXT EXTERNAL SMALL AMOUNT [...] culture - 12/21/18 13:21 Bacterial urine culture [id number] NRG COLONY COUNT >100,000/ML NRG FTX;REPORTABLE SUSCEPTIBILITY [...] culture - 12/25/18 10:20 Bacterial urine culture [id number] NRG COLONY COUNT 10,000 CFU/ML NRG Complete blood count (CBC) with automate [...] g/dL 3.2-4.5 CALCIUM CORRECTED 9.2 mg/dL 8.5-10.1 CMP - 03/19/19 11:12 GLUCOSE 83 mg/dL 65-99 UREA NITROGEN (BUN) 33 mg/dL 7-25 CREATININE 1.80 mg/dL 0.60-0.93 eGFR NON-AFR. LEBANESE 28 mL/min/1.73m2 > OR = 60 eGFR [...] culture - 05/04/19 13:13 Bacterial urine culture [id number] NRG COLONY COUNT >100,000/ML NRG FTX;REPORTABLE SEE [...] Status Pt. Type Provider Facility Loc./Unit Complaint [id number] 12/21/2016 11:07:00 Document Registration [id number] 06/27/2014 11:17:00 06/27/2014 23:59: 59 [facility] Outpatient CHRISTA GLORIA APRN [id number] 05/04/2014 12:42:00 05/04/2014 23:59: 59 [facility] Outpatient COLLEEN WAYNE APRN Jovana [id number] 04/08/2014 16:11:00 04/08/2014 23:59: 59 [facility] Outpatient CHRISTA GLORIA APRN [id number] 12/08/2013 11:03:00 12/08/2013 23:59: 59 CLS Outpatient CHRISTA GLORIA APRN [id number] 09/28/2013 10:06:00 09/28/2013 23:59: 59 CLS Outpatient ONEYDA RUIZ APRN [id number] 09/13/2013 12:07:00 09/13/2013 23:59: 59 CLS Outpatient COLLEEN WAYNE APRN Jovana [id number] 2013 13:19:00 2013 23:59: 59 CLS Outpatient LINDA DOEUGENIO Demond [id number] 06/21/2013 16:02:00 06/21/2013 23:59: 59 CLS Outpatient LINDA DO EUGENIO Lagos [id number] 05/05/2013 10:48:00 05/05/2013 23:59: 59 CLS Outpatient LINDA DOMATTHEWA Demond [id number] 05/05/2013 10:48:00 05/05/2013 23:59: 59 CLS Outpatient LINDA DO, EUGENIO Lagos [id number] 04/19/2013 09:39:00 04/19/2013 23:59: 59 CLS Outpatient LINDA DO, EUGENIO Demond [id number] 03/11/2013 14:00:00 03/11/2013 23:59: 59 CLS Outpatient PERRI WAYNE APRNRICIA Jovana [id number] 02/24/2013 15:28:00 02/24/2013 23:59: 59 CLS Outpatient LINDA DO, EUGENIO Demond [id number] 02/22/2013 11:28:00 02/22/2013 23:59: 59 CLS Outpatient LINDA DO, EUGENIO Demond [id number] 02/22/2013 11:28:00 02/22/2013 23:59: 59 CLS Outpatient LINDA DO, EUGENIO Demond [id number] 02/11/2013 16:04:00 02/11/2013 23:59: 59 CLS Outpatient HERNAN CRUZ MD [id number] 01/22/2013 08:45:00 01/22/2013 23:59: 59 CLS Outpatient LINDA DO, EUGENIO K [id number] 11/24/2012 08:59:00 11/24/2012 23:59: 59 CLS Outpatient EUGENIO LINDA DO [id number] 05/12/2012 08:25:00 05/12/2012 23:59: 59 CLS Outpatient EUGENIO LINDA DO [id number] 04/13/2012 09:56:00 04/13/2012 23:59: 59 CLS Outpatient EUGENIO LINDA DO [id number] 04/01/2012 12:14:00 04/01/2012 23:59: 59 CLS Outpatient [id number] 01/17/2012 10:03:00 01/17/2012 23:59:5 9 CLS Outpatient EUGENIO LINDA DO [id number] 01/17/2012 10:03:00 01/17/2012 23:59: 59 CLS Outpatient [id number] 11/16/2012 14:32:00 Document Registration [id number] 10/19/2012 11:25:00 Document Registration [id number] 09/21/2012 13:09:00 Document Registration [id number] 08/10/2012 09:38:00 Document Registration [id number] 07/14/2012 15:04:00 Document Registration [id number] 07/07/2012 14:09:00 Document Registration [id number] 05/04/2019 14:31:00 18:15:00 DIS Inpatient DEL REAL SERINA Liu [facility] 4TH TRAE,N/V/D [id number] 03/04/2019 10:26:00 11:10:00 DIS [facility] [id number] 02/12/2019 09:31:00 23:59:59 CLS Outpatient PIERO SOUSA MD [facility] WOUNDCARE [id number] 02/05/2019 09:47:00 23:59:59 CLS Outpatient PIERO SOUSA MD [facility] WOUNDCARE [id number] 01/29/2019 09:49:00 23:59:59 CLS Outpatient PIERO SOUSA MD [facility] WOUNDCARE [id number] 01/22/2019 10:25:00 23:59:59 CLS Outpatient PIERO SOUSA MD [facility] WOUNDCARE [id number] 01/12/2019 13:28:00 23:59:59 CLS Outpatient PIERO SOUSA MD [facility] WOUNDCARE [id number] 12/25/2018 11:02:00 14:11:00 DIS Emergency YUDI MORRISON APRN [facility] ER POSS SEPTIC [id number] 12/21/2018 14:20:00 13:00:00 DIS Inpatient HERNAN CRUZ MD [facility] 4TH SEPSIS;OSTEOMYELITIS;AC JULIANNA RENAL FAILURE;R SHOULD- [id number] 12/16/2018 08:54:00 23:59:59 CLS Preadmit OTHER, UNLISTED [facility] RAD AORTIC THROMBUS [id number] 11/11/2018 09:42:00 23:59:59 CLS Preadmit CHRISTA GLORIA [facility] REHAB S/P CVA [id number] 10/30/2018 20:04:00 23:06:00 DIS Emergency ALDEN ALVARADO [facility] ER R FOOT PAIN [id number] 08/11/2018 12:00:00 23:59:59 CLS Preadmit MARIA DOLORES CRYSTAL FACC, DIMITRI DOWNING CCDS [facility] CATH CVA,CAD,HTN,HILARIO [id number] 07/21/2018 11:00:00 12:00:00 DIS Inpatient SERINA DEL REAL DO, V [facility] IRF CVA [id number] 07/15/2018 14:10:00 10:45:00 DIS Inpatient HERNAN CRUZ MD [facility] 4TH SUBACUTE CVA/UTI [id number] 05/10/2018 08:45:00 02/17/2 019 23:59:59 CLS Outpatient MILTON CRYSTAL, HENRY Rodgers [facility] RAD POSSIBLE DVT [id number] 05/09/2018 18:24:00 019 23:00:00 DIS Emergency MICKEY KENNEDY [facility] ER VOMITING/L LEG PAIN [id number] 02/12/2018 00:40:00 018 02:35:00 DIS Emergency KEITH FERNANDEZ DO Vi [facility] ER BLOOD IN URINE [id number] 12/19/2017 08:03:00 018 12:27:00 DIS Emergency GUSTAVO HUTSON MD [facility] ER ABD PAIN [id number] 09/11/2017 10:45:00 018 23:59:59 CLS Outpatient DEJA ZHONG [employer] [facility] RAD ASYMPTOMIC MENOPAUSAL STATE [id number] 08/07/2017 13:34:00 018 17:01:00 DIS Emergency YUDI MORRISON [employer] [facility] ER CP, [id number] 05/24/2016 11:42:00 017 17:03:00 DIS Emergency GAGAN CRYSTAL, SERGIO Griffith [facility] ER RIGHT SIDE LOWER ABD PA IN/NAUSEA [id number] 03/18/2016 12:32:00 016 13:47:00 DIS Emergency MILTON CRYSTAL, HENRY Rodgers [facility] ER RIGHT LEG PAIN [id number] 12/29/2014 10:02:00 015 23:59:59 CLS Preadmit EDDIE GLORIA [employer]ESS [facility] REHAB [id number] 06/30/2013 07:15:00 014 23:59:59 CLS Outpatient KASIA CHRISTOPHER MD [facility] PREOP SCREENING [id number] 12/02/2012 11:53:00 013 23:59:59 CLS Outpatient KASIA CHRISTOPHER MD [facility] PREOP SCREENING [id number] 11/06/2012 21:56:00 013 06:50:00 DIS Outpatient EUGENIO LINDA DO [facility] SLEEP SNORING [id number] 10/19/2019 10:00:00 P GRACE WHITTEN MD FACC, DIMITRI DOWNING CCDS Via [facility] CATH CAD [id number] 06/05/2019 20:20:00 Document Registration [id number] 12/23/2014 10:01:00 Document Registration [id number] 12/23/2014 10:01:00 Document Registration [id number] 05/06/2012 07:51:00 Document Registration [id number] 04/22/2012 09:16:00 Document Registration [id number] 02/24/2012 10:26:00 Document Registration [id number] 06/25/2019 13:20:00 06/25/2019 23:59:5 9 CLS Outpatient CHRISTA GLORIA APRN [facility] [id number] 03/19/2019 10:20:00 Document Registration [id number] 11/04/2018 14:40:00 Document Registration [id number] 08/13/2018 09:40:00 Document Registration [id number] 01/30/2018 10:40:00 Document Registration [id number] 06/25/2017 18:40:00 Document Registration [id number] 12/20/2016 10:40:00 Document Registration
[2019-10-19 08:44] LABS: HEMOGLOBIN 12.1 G/DL (11.5-16.0); MEAN PLATELET VOLUME 11.4 FL (7.4-10.4); RED CELL DISTRIBUTION WIDTH 14.3 % (10.0-14.5); WHITE BLOOD COUNT 11.2 10^3/uL (4.3-11.0)
--- OUTSIDE RECORDS SUMMARY | 2019-10-19 08:44 | XMS REPORT | Clinical Summary ---
Author Author [facility] Organization [facility] Address Unknown Phone Unavailable Care Team Providers Care Track Mechanic Name Role Phone Alyssa Olson MD Unavailable Luanne Mcbride DO PCP Source Comments Some departments are not documenting in the electronic medical record. If you d o not see the information that you expected, contact Release of Information in [facility] Information Management department at [phone] for further assistan ce in locating additional records.[facility] Allergies No Known Allergies Medications End Date [...]
--- OUTSIDE RECORDS SUMMARY | 2019-10-19 09:00 | XMS REPORT | Continuity of Care Document ---
Demographics Preferred Language Unknown Marital Status Unknown Oriental Orthodox Affiliation Unknown Race Unknown Ethnic Group Unknown Author Organization Unknown Address Unknown Phone Unavailable Allergies Active Description Code Type Severity Reaction Onset Reported/Identified Relationship to Patient Clinical Status Yes No Known Drug Allergies [id number] Drug Allergy Unknown N/A 10/21/2008 Yes Cymbalta [...] LINDA DO, EUGENIO K 599.7 HEMATURIA 03/01/2008 ILNDA DO, EUGENIO K 789.00 Abdominal Pain Unspecified [...] 789.00 Abdominal Pain Unspecified Site 03/01/2008 WAYNE LAND MANAGEMENT FORESTER, COLLEEN R 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 03/01/2008 WAYNE LAND MANAGEMENT FORESTER, COLLEEN R 599.7 HEMATURIA 03/01/2008 WAYNE LAND MANAGEMENT FORESTER, COLLEEN R 789.00 Abdominal Pain Unspecified Site [...] 789.00 Abdominal Pain Unspecified Site 03/01/2008 WAYNE LAND MANAGEMENT FORESTER, COLLEEN R 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 03/01/2008 ROSANA LAND MANAGEMENT FORESTER, COLLEEN R 599.7 HEMATURIA 03/01/2008 ROSANA LAND MANAGEMENT FORESTER, COLLEEN R 789.00 Abdominal Pain Unspecified Site 03/01/2008 SARA LAND MANAGEMENT FORESTER, ONEYDA A 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 03/01/2008 [...] 414.01 CORONARY ARTERY STENOSIS MULTI-VESSEL 08/10/2008 COLLEEN WAYNE APRN 300.00 anxiety 08/10/2008 ROSANA LAND MANAGEMENT FORESTER, COLLEEN R 305.1 NICOTINE DEPENDENCE 08/10/2008 ROSANA [...] IRVIN, COLLEEN R 300.00 anxiety 08/10/2008 ROSANA LIGNN, COLLEEN R 305.1 NICOTINE DEPENDENCE 08/10/2008 ROSANA LINGN, COLLEEN R 414.01 CORONARY ARTERY STENOSIS MULTI-VESSEL 08/10/2008 SARA APRN, ONEYDA A 300.00 anxiety 08/10/2008 SARA LAND MANAGEMENT FORESTER, ONEYDA A 30 5.1 NICOTINE DEPENDENCE 08/10/2008 SARA LAND MANAGEMENT FORESTER, ONEYDA A 414.01 CORONARY ARTERY STENOSIS MULTI-VESSEL [...] [place] 05/10/2009 V72.31 Associate Medical Director Exam, Routine 05/10/2009 625.8 [place] 05/10/2009 V72.31 Associate Medical Director Exam, Routine 05/10/2009 LINDA DO EUGENIO K 625.8 [place] 05/10/2009 LINDA DO EUGENIO K V72.31 Associate Medical Director Exam, Routine 05/10/2009 LINDA DO, EUGENIO K 625.8 [place] 05/10/2009 LINDA DO, EUGENIO K V72.31 Associate Medical Director Exam, Routine 05/10/2009 625.8 [place] 05/10/2009 V72.31 Associate Medical Director Exam, Routine 05/10/2009 625.8 [place] 05/10/2009 V72.31 Associate Medical Director Exam, Routine 05/10/2009 625.8 [place] 05/10/2009 V72.31 Associate Medical Director Exam, Routine 05/10/2009 625.8 [place] 05/10/2009 V72.31 Associate Medical Director Exam, Routine 05/10/2009 625.8 [place] 05/10/2009 V72.31 Associate Medical Director Exam, Routine 05/10/2009 625.8 [place] 05/10/2009 V72.31 Associate Medical Director Exam, Routine 05/10/2009 LINDA DO EUGENIO K 625.8 [place] 05/10/2009 LINDA DO EUGENIO K V72.31 Associate Medical Director Exam, Routine 05/10/2009 LINDA DO EUGENIO K 625.8 [place] 05/10/2009 LINDA DO EUGENIO K V72.31 Associate Medical Director Exam, Routine 05/10/2009 LINDA DO EUGENIO K 625.8 [place] 05/10/2009 LINDA DO EUGENIO K V72.31 Associate Medical Director Exam, Routine 05/10/2009 HERNAN CRUZ MD 625 .8 [place] 05/10/2009 HERNAN CRUZ MD V72 .31 Associate Medical Director Exam, Routine 05/10/2009 LINDA DO EUGENIO K 625.8 [place] 05/10/2009 LINDA DO, EUGENIO K V72.31 Associate Medical Director Exam, Routine 05/10/2009 LINDA DO, EUGENIO K 625.8 [place] 05/10/2009 LINDA DO, EUGENIO K V72.31 Associate Medical Director Exam, Routine 05/10/2009 MARCELO WAYNE APRNIA R 625.8 [place] 05/10/2009 MARCELO WAYNE APRNIA R V72.31 Associate Medical Director Exam, Routine 05/10/2009 LINDA DO, EUGENIO K 625.8 [place] 05/10/2009 LINDA DO, EUGENIO K V72.31 Associate Medical Director Exam, Routine 05/10/2009 LINDA DO, EUGENIO K 625.8 [place] 05/10/2009 LINDA DO, EUGENIO K V72.31 Associate Medical Director Exam, Routine 05/10/2009 LINDA DO, EUGENIO K 625.8 [place] 05/10/2009 LINDA DO, EUGENIO K V72.31 Associate Medical Director Exam, Routine 05/10/2009 LINDA DO, EUGENIO K 625.8 [place] 05/10/2009 LINDA DO, EUGENIO K V72.31 Associate Medical Director Exam, Routine 05/10/2009 LINDA DO, EUGENIO K 625.8 [place] 05/10/2009 LINDA DO, EUGENIO K V72.31 Associate Medical Director Exam, Routine 05/10/2009 LINDA DO, EUGENIO K 625.8 [place] 05/10/2009 LINDA DO, EUGENIO K V72.31 Associate Medical Director Exam, Routine 05/10/2009 COLLEEN WAYNE APRN R 625.8 [place] 05/10/2009 MARCELO WAYNE APRNIA R V72.31 Associate Medical Director Exam, Routine 05/10/2009 SARAONEYDA Mead APRN A 62 5.8 [place] 05/10/2009 ONEYDA RUIZ APRN A V72.31 Associate Medical Director Exam, Routine 05/10/2009 CHRISTA GLORIA APRN 62 5.8 [place] 05/10/2009 CHRISTA GLORIA APRN V72.31 Associate Medical Director Exam, Routine 05/10/2009 CHRISTA GLORIA APRN 62 5.8 [place] 05/10/2009 CHRISTA GLORIA APRN V72.31 Associate Medical Director Exam, Routine 05/10/2009 COLLEEN WAYNE APRN R 625.8 [place] 05/10/2009 COLLEEN WAYNE APRN R V72.31 Associate Medical Director Exam, Routine 05/10/2009 CHRISTA GLORIA APRN 62 5.8 [place] 05/10/2009 CHRISTA GLORIA APRN V72.31 Associate Medical Director Exam, Routine 06/08/2009 788.31 URG E INCONTINENCE [...] APRN T 72 4.5 BACKACHE 12/16/2009 ROSANA LAND MANAGEMENT FORESTERCOLLEEN Jovana 724.5 BACKACHE 12/16/2009 CHRISTA GLORIA APRN [...] 788.42 Frequent, Full-bladder Emptying (polyuria) 06/19/2010 WAYNE LAND MANAGEMENT FORESTER, COLLEEN R 719.40 joint pain, localized 06/19/2010 WAYNE LAND MANAGEMENT FORESTER, COLLEEN R 783.5 Excessive Thirst / Fluid Intake (polydypsia) 06/19/2010 WAYNE LAND MANAGEMENT FORESTER, COLLEEN R 788.42 Frequent, Full-bladder Emptying (polyuria) [...] APRNRICIA R 719.40 joint pain, localized 06/19/2010 PRERI WAYNE APRNRICIA R 783.5 Excessive Thirst / [...] COLLEEN R 710.0 Systemic Lupus Erythematosus 10/15/2010 LINDA [...] 26 8.9 VITAMIN D DEFICIENCY 02/18/2011 BAM RUIZ APRNIDI A 71 0.9 DISORDERS OF CONNECTIVE [...] V76.47 VAG INAL PAP SMEAR SCREENING 09/10/2011 EUGEINO LINDA DO V76.10 BREAST CANCER SCREENING 09/10/2011 [...] 070.54 HEPATITIS C CHRONIC 11/11/2011 LINDA DO, EUGEINO K 702.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 11/11/2011 LINDA DO, EUGENIO K 070.54 HEPATITIS C CHRONIC 11/11/2011 LINDA DO, EUGENIO K 702.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 11/11/2011 COLLEEN WAYNE APRN R 070.54 HEPATITIS C CHRONIC 11/11/2011 COLLEEN WAYNE APRN R 702.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 11/11/2011 ONEYDA RUIZ APRN 070.54 HEPATITIS C CHRONIC 11/11/2011 ONEYDA RUIZ APRN 702.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 11/11/2011 CHRISTA GLORIA APRN 070.54 HEPATITIS C CHRONIC 11/11/2011 FAIZAN LAND MANAGEMENT FORESTER, CHRISTA T 702.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 11/11/2011 CHRISTA [...] LINDA DO, EUGENIO K 786.2 Cough 04/01/2012 MARCLEO WAYNE APRNIA R 786.2 Cough 04/01/2012 LINDA DO, EUGENIO K 786.2 Cough 04/01/2012 LINDA DO, EUGENIO K 786.2 Cough 04/01/2012 LINDA DO, EUGENIO K 786.2 Cough 04/01/2012 LINDA DO, EUGENIO K 786.2 Cough 04/01/2012 LINDA DO, EUGENIO K 786.2 Cough 04/01/2012 LINDA DO, EUGENIO K 786.2 Cough 04/01/2012 ROSANA LAND MANAGEMENT FORESTER, COLLEEN R 786.2 Cough 04/01/2012 SARA LAND MANAGEMENT FORESTER, ONEYDA A 78 6.2 Cough 04/01/2012 FAIZAN LAND MANAGEMENT FORESTER, CHRISTA T 78 6.2 Cough 04/01/2012 FAIZAN LAND MANAGEMENT FORESTER, CHRISTA T 78 6.2 Cough 04/01/2012 WAYNE LAND MANAGEMENT FORESTER, COLLEEN R 786.2 Cough 04/01/2012 FAIZAN LAND MANAGEMENT FORESTER, CHRISTA T 78 6.2 Cough 04/13/2012 LINDA [...] APRNRICIA R V73.81 HPV SCREENING 10/19/2012 ROSANA IVRIN COLLEEN R V76.51 COLON CANCER SCREENING 10/19/2012 [...] GLORIA APRN 786.09 RESPIRATORY ABNORMALITY OTHER 04/19/2013 HCRISTA GLORIA APRN T 327.23 OBSTRUCTIVE SLEEP APNEA [...] 05/24/2016 SERGIO FARAH MD Ot Z79. 82 ELECTRIC POWERLINE EXAMINER (CURRENT) USE OF ASPIRIN 05/24/2016 SERGIO FARAH MD Ot Z79.899 OTHER ELECTRIC POWERLINE EXAMINER (CURRENT) DRUG THERAPY 05/24/2016 SERGIO FARAH MD [...] 05/27/2016 SERGIO FARAH MD Ot Z79. 82 SKILLED NURSING (CURRENT) USE OF ASPIRIN 05/27/2016 SERGIO FARAH MD Ot Z79.899 OTHER ELECTRIC POWERLINE EXAMINER (CURRENT) DRUG THERAPY 05/27/2016 SERGIO FARAH MD [...] 05/27/2016 SERGIO FARAH MD Ot Z79. 82 ELECTRIC POWERLINE EXAMINER (CURRENT) USE OF ASPIRIN 05/27/2016 SERGIO FARAH MD Ot Z79.899 OTHER SKILLED NURSING (CURRENT) DRUG THERAPY 05/27/2016 SERGIO FARAH MD [...] GAGAN CRYSTAL, SERGIO Griffith Ot Z79. 82 SKILLED NURSING (CURRENT) USE OF ASPIRIN 05/31/2016 SERGIO FARAH MD Ot Z79.899 OTHER SKILLED NURSING (CURRENT) DRUG THERAPY 05/31/2016 SERGIO FARAH MD [...] PAIN 08/07/2017 YUDI MORRISON APRN Ot Z79.82 SKILLED NURSING (CURRENT) USE OF ASPIRIN 08/07/2017 YUDI MORRISON [...] PAIN 08/11/2017 YUDI MORRISON APRN Ot Z79.82 SKILLED NURSING (CURRENT) USE OF ASPIRIN 08/11/2017 YUDI MORRISON LAND MANAGEMENT FORESTER Ot 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 08/11/2017 YUDI MORRISON LAND MANAGEMENT FORESTER Ot Z87.19 PERSONAL HISTORY OF OTHER DISEASES OF TH 08/11/2017 YUDI MORRISON LAND MANAGEMENT FORESTER Ot 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 08/11/2017 YUDI MORRISON LAND MANAGEMENT FORESTER Ot Z90.89 ACQUIRED ABSENCE OF OTHER ORGANS 09/08/2017 DEJA ZHONG LAND MANAGEMENT FORESTER Ot Z78.0 ASYMPTOMATIC MENOPAUSAL STATE 09/08/2017 Ot 793.89 OTH (ABN) FINDINGS ON RADIOLOGICAL EXAMI 09/08/2017 Ot V76.12 OTH SCREEN MAMMO- MALIGN NEOPLASM OF JOSIANE 09/08/2017 Ot 610.0 SANJIV TARY CYST OF BREAST 09/08/2017 CANDI CRYSTAL, KASIA Canas Ot V72.84 EXAM PRE-OPERATIVE NOS 09/08/2017 CANDI CRYSTAL, KASIA Canas Ot V72.84 EXAM PRE-OPERATIVE NOS 09/08/2017 DEJA ZHONG LAND MANAGEMENT FORESTER Ot Z78.0 ASYMPTOMATIC MENOPAUSAL STATE 09/12/2017 DEJA ZHONG LAND MANAGEMENT FORESTER Ot 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, 09/12/2017 DEJA ZHONG LAND MANAGEMENT FORESTER Ot Z13.820 ENCOUNTER FOR SCREENING FOR OSTEOPOROSIS 09/12/2017 DEJA ZHNOG LAND MANAGEMENT FORESTER Ot Z78.0 ASYMPTOMATIC MENOPAUSAL STATE 10/02/2017 DEJA ZHONG LAND MANAGEMENT FORESTER Ot 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, 10/02/2017 DEJA ZHONG LAND MANAGEMENT FORESTER Ot Z13.820 ENCOUNTER FOR SCREENING FOR OSTEOPOROSIS 10/02/2017 DEJA ZHONG LAND MANAGEMENT FORESTER Ot Z78.0 ASYMPTOMATIC MENOPAUSAL STATE 12/19/2017 GUSTAVO HUTSON MD Ot F17.210 NICOTINE DEPENDENCE, CIGARETTES, UNCOMPL 12/19/2017 GUSTAVO HUTSON MD Ot I47 .2 VENTRICULAR TACHYCARDIA 12/19/2017 GUSTAVO HUTSON MD Ot N28 .0 ISCHEMIA AND INFARCTION OF KIDNEY 12/19/2017 GUSTAVO HUTSON MD Ot R10.31 RIGHT LOWER QUADRANT PAIN 12/19/2017 GUSTAVO HUTSON MD Ot Z79.82 SKILLED NURSING (CURRENT) USE OF ASPIRIN 12/19/2017 GUSTAVO HUTSON [...] PAIN 12/22/2017 GUSTAVO HUTSON MD, Ot Z79.82 SKILLED NURSING (CURRENT) USE OF ASPIRIN 12/22/2017 GUSTAVO HUTSON [...] K Ot I25.10 ATHSCL HEART DISEASE OF [place] CORONARY 02/12/2018 NONA EFRNANDEZ DOA K Ot M32.9 SYSTEMIC LUPUS ERYTHEMATOSUS, UNSPECIFIE 02/12/2018 NONA FERNANDEZ DOA K Ot N39.0 URINARY TRACT INFECTION, SITE NOT SPECIF 02/12/2018 NONA FERNANDEZ DOA K Ot R31.9 HEMATURIA, UNSPECIFIED 02/12/2018 NONA FERNANDEZ DOA K Ot Z79.01 ELECTRIC POWERLINE EXAMINER (CURRENT) USE OF ANTICOAGULANT 02/12/2018 NONA FERNANDEZ DOA Demond Ot Z79.82 ELECTRIC POWERLINE EXAMINER (CURRENT) USE OF ASPIRIN 02/12/2018 NONA FERNANDEZ [...] SPECIFIED POSTPROCEDURAL STATES 02/16/2018 REBECCA DO KEITH Demond Ot F17.210 NICOTINE DEPENDENCE, CIGARETTES, UNCOMPL 02/16/2018 REEBCCA PORTILLOKEITH Ot F32.9 MAJOR DEPRESSIVE DISORDER, SINGLE EPISOD 02/16/2018 REBECCA KEITH Ot F41.9 ANXIETY DISORDER, UNSPECIFIED 02/16/2018 REBECCA KEITH K Ot I10 ESSENTIAL (PRIMARY) HYPERTENSION 02/16/2018 REBECCA KEITH K Ot I25.10 ATHSCL HEART DISEASE OF [place] CORONARY 02/16/2018 REBECCA NONAA Demond Ot M32.9 SYSTEMIC LUPUS ERYTHEMATOSUS, UNSPECIFIE 02/16/2018 REBECCA NONAA Demond Ot N39.0 URINARY TRACT INFECTION, SITE NOT SPECIF 02/16/2018 REBECCA PORTILLOKEITH Ot R31.9 HEMATURIA, UNSPECIFIED 02/16/2018 REBECCA KEITH K Ot Z79.01 ELECTRIC POWERLINE EXAMINER (CURRENT) USE OF ANTICOAGULANT 02/16/2018 REBECCA NONAA K Ot Z79.82 SKILLED NURSING (CURRENT) USE OF ASPIRIN 02/16/2018 REBECCA NONAA [...] KENNEDY Ot I25.10 ATHSCL HEART DISEASE OF [place] CORONARY 05/09/2018 MICKEY KENNEDY Ot M10.9 GOUT, [...] TOBACCO SMO 05/09/2018 MICKEY KENNEDY Ot Z79.82 ELECTRIC POWERLINE EXAMINER (CURRENT) USE OF ASPIRIN 05/09/2018 MAGO KENNEDYIS [...] KENNEDYIS Ot I25.10 ATHSCL HEART DISEASE OF [place] CORONARY 05/12/2018 MAGO KENNEDYIS Ot M10.9 GOUT, [...] TOBACCO SMO 05/12/2018 MAGO KENNEDYIS Ot Z79.82 ELECTRIC POWERLINE EXAMINER (CURRENT) USE OF ASPIRIN 05/12/2018 MAGO KENNEDYIS [...] V72.84 EXAM PRE-OPERATIVE NOS 05/12/2018 DEJA ZHONG LAND MANAGEMENT FORESTER Ot 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, 05/12/2018 DEJA ZHONG LAND MANAGEMENT FORESTER Ot Z13.820 ENCOUNTER FOR SCREENING FOR OSTEOPOROSIS 05/12/2018 DEJA ZHONG LAND MANAGEMENT FORESTER Ot Z78.0 ASYMPTOMATIC MENOPAUSAL STATE 05/12/2018 HENRY [...] MD Ot I25.10 ATHSCL HEART DISEASE OF [place] CORONARY 07/20/2018 HERNAN CRUZ MD Ot I34 [...] SPECIF 07/20/2018 HERNAN CRUZ MD, Ot Z79.01 ELECTRIC POWERLINE EXAMINER (CURRENT) USE OF ANTICOAGULANT 07/20/2018 HERNAN CRUZ MD, Ot Z85.41 PERSONAL HISTORY OF MALIGNANT NEOPLASM O 07/20/2018 HERNAN CRUZ MD, Ot 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 07/20/2018 HERNAN CRUZ MD, Ot Z86.718 PERSONAL HISTORY OF OTHER VENOUS THROMBO 07/20/2018 HERNAN CRUZ MD, Ot Z91.19 PATIENT'S NONCOMPLIANCE W [facility] 07/20/2018 EHRNAN CRUZ MD, Ot Z92.21 PERSONAL HISTORY OF [...] MD, Ot I25.10 ATHSCL HEART DISEASE OF [place] CORONARY 07/21/2018 HERNAN CRUZ MD Ot I34 [...] SPECIF 07/21/2018 HERNAN CRUZ MD, Ot Z79.01 SKILLED NURSING (CURRENT) USE OF ANTICOAGULANT 07/21/2018 HERNAN CRZU MD, Ot Z82.49 FAMILY HX OF ISCHEM [...] SERINA Ot I25.10 ATHSCL HEART DISEASE OF [place] CORONARY 07/31/2018 GT PORTILLO SERINA Ot I65.23 [...] WEAKNESS 07/31/2018 GT PORTILLO SERINA Ot Z79.01 SKILLED NURSING (CURRENT) USE OF ANTICOAGULANT 07/31/2018 GT PORTILLO [...] ALVARADO Ot I25.10 ATHSCL HEART DISEASE OF [place] CORONARY 10/30/2018 ALDEN ALVARADO Ot I73.9 PERIPHERAL VASCULAR DISEASE, UNSPECIFIED 10/30/2018 ALDEN ALVARADO Ot L03.031 CELLULITIS OF RIGHT TOE 10/30/2018 ALDEN ALVARADO Ot M32.9 SYSTEMIC LUPUS ERYTHEMATOSUS, UNSPECIFIE 10/30/2018 ALDEN ALVARADO Ot M79.671 PAIN IN RIGHT FOOT 10/30/2018 ALDEN ALVARADO Ot N18.9 CHRONIC KIDNEY DISEASE, UNSPECIFIED 10/30/2018 ALDEN ALVARADO Ot Z79.82 SKILLED NURSING (CURRENT) USE OF ASPIRIN 10/30/2018 ALDEN ALVARADO [...] CHRONIC KIDNEY DISEASE W ST 11/03/2018 ALDEN ALVARAOD Ot I25.10 ATHSCL HEART DISEASE OF [place] CORONARY 11/03/2018 ALDEN ALVARADO Ot I73.9 PERIPHERAL VASCULAR DISEASE, UNSPECIFIED 11/03/2018 ALDEN ALVARADO Ot L03.031 CELLULITIS OF RIGHT TOE 11/03/2018 ALDEN ALVARADO Ot M32.9 SYSTEMIC LUPUS ERYTHEMATOSUS, UNSPECIFIE 11/03/2018 ALDEN ALVARADO Ot M79.671 PAIN IN RIGHT FOOT 11/03/2018 ALDEN ALVARADO Ot N18.9 CHRONIC KIDNEY DISEASE, UNSPECIFIED 11/03/2018 ALDEN ALVARADO Ot Z79.82 SKILLED NURSING (CURRENT) USE OF ASPIRIN 11/03/2018 ALDEN ALVARADO [...] FOR SCREENING FOR OSTEOPOROSIS 12/21/2018 DEJA ZHONG LAND MANAGEMENT FORESTER Ot Z78.0 ASYMPTOMATIC MENOPAUSAL STATE 12/21/2018 MILTON [...] MD Ot I25.10 ATHSCL HEART DISEASE OF [place] CORONARY 12/23/2018 HERNAN CRUZ MD Ot I82 [...] SPECIF 12/23/2018 HERNAN CRUZ MD Ot Z79.82 SKILLED NURSING (CURRENT) USE OF ASPIRIN 12/23/2018 HERNAN CRUZ MD Ot Z79.891 SKILLED NURSING (CURRENT) USE OF OPIATE ANALGE 12/23/2018 HERNAN CRUZ MD, Ot Z79.899 OTHER SKILLED NURSING (CURRENT) DRUG THERAPY 12/23/2018 HERNAN CRUZ MD, [...] F41 .9 ANXIETY DISORDER, UNSPECIFIED 12/25/2018 YUDI MORRSION APRN Ot G62 .9 POLYNEUROPATHY, UNSPECIFIED 12/25/2018 YUDI MORRISON APRN Ot I10 ESSENTIAL (PRIMARY) HYPERTENSION 12/25/2018 YUDI MORRISON APRN Ot I25.10 ATHSCL HEART DISEASE OF [place] CORONARY 12/25/2018 YUDI MORRISON APRN Ot M86 .9 OSTEOMYELITIS, UNSPECIFIED 12/25/2018 YUDI MORRISON APRN Ot N39 .0 URINARY TRACT INFECTION, SITE NOT SPECIF 12/25/2018 YUDI MORRISON APRN Ot Z79.01 ELECTRIC POWERLINE EXAMINER (CURRENT) USE OF ANTICOAGULANT 12/25/2018 YUDI MORRISON APRN Ot Z79.52 ELECTRIC POWERLINE EXAMINER (CURRENT) USE OF SYSTEMIC STER 12/25/2018 YUDI MORRISON APRN Ot Z79.82 SKILLED NURSING (CURRENT) USE OF ASPIRIN 12/25/2018 YUDI MORRISON [...] APRN Ot I25.10 ATHSCL HEART DISEASE OF [place] CORONARY 12/30/2018 YUDI MORRISON APRN Ot M86 .9 OSTEOMYELITIS, UNSPECIFIED 12/30/2018 YUDI MORRISON APRN Ot N39 .0 URINARY TRACT INFECTION, SITE NOT SPECIF 12/30/2018 YUDI MORRISON APRN Ot Z79.01 ELECTRIC POWERLINE EXAMINER (CURRENT) USE OF ANTICOAGULANT 12/30/2018 YUDI MORRISON APRN Ot Z79.52 ELECTRIC POWERLINE EXAMINER (CURRENT) USE OF SYSTEMIC STER 12/30/2018 YUDI MORRISON APRN Ot Z79.82 SKILLED NURSING (CURRENT) USE OF ASPIRIN 12/30/2018 YUDI MORRISON [...] APRN Ot I25.10 ATHSCL HEART DISEASE OF [place] CORONARY 01/06/2019 YUDI MORRISON APRN Ot M86 .9 OSTEOMYELITIS, UNSPECIFIED 01/06/2019 YUDI MORRISON APRN Ot N39 .0 URINARY TRACT INFECTION, SITE NOT SPECIF 01/06/2019 YUDI MORRISON APRN Ot Z79.01 SKILLED NURSING (CURRENT) USE OF ANTICOAGULANT 01/06/2019 YUDI MORRISON APRN Ot Z79.52 ELECTRIC POWERLINE EXAMINER (CURRENT) USE OF SYSTEMIC STER 01/06/2019 YUDI MORRISON APRN Ot Z79.82 ELECTRIC POWERLINE EXAMINER (CURRENT) USE OF ASPIRIN 01/06/2019 YUDI MORRISON [...] 01/14/2019 PIERO SOUSA MD, Ot I70.235 ATHSCL [place] ARTERIES OF RIGHT LEG W UL 01/14/2019 PIERO SOUSA MD, Ot 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 [facility] 01/14/2019 [...] 01/28/2019 PIERO SOUSA MD Ot I70.235 ATHSCL [place] ARTERIES OF RIGHT LEG W 01/28/2019 PIERO SOUSA MD Ot 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 [facility] 01/28/2019 PIERO SOUSA MD, Ot [...] 02/02/2019 PIERO SOUSA MD Ot I70.235 ATHSCL [place] ARTERIES OF RIGHT LEG W 02/02/2019 PIERO SOUSA MD Ot 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 [facility] 02/02/2019 PIERO SOUSA MD Ot [...] 02/15/2019 PIERO SOUSA MD Ot I70.235 ATHSCL [place] ARTERIES OF RIGHT LEG W UL 02/15/2019 PIERO SOUSA MD Ot 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 [facility] 02/15/2019 [...] 02/16/2019 PIERO SOUSA MD Ot I70.235 ATHSCL [place] ARTERIES OF RIGHT LEG W UL 02/16/2019 [...] OTHER OSTEOMYELITIS, OTHER SITE 05/04/2019 DEJA ZHONG LAND MANAGEMENT FORESTER Ot 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, 05/04/2019 DEJA ZHONG LAND MANAGEMENT FORESTER Ot Z13.820 ENCOUNTER FOR SCREENING FOR OSTEOPOROSIS 05/04/2019 DEJA ZHONG LAND MANAGEMENT FORESTER Ot Z78.0 ASYMPTOMATIC MENOPAUSAL STATE 05/04/2019 MILTON CRYSTAL, HENRY Rodgers Ot M79.605 PAIN IN LEFT LEG 05/04/2019 PIERO SOUSA MD Ot I70.235 ATHSCL [place] ARTERIES OF RIGHT LEG W 05/04/2019 PIERO SOUSA MD Ot 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 UL 05/04/2019 [...] 05/04/2019 PIERO SOUSA MD Ot I70.235 ATHSCL [place] ARTERIES OF RIGHT LEG W 05/04/2019 MERRY MD, PIERO G Ot 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 [facility] 05/04/2019 PIERO SOUSA MD Ot [...] 05/04/2019 PIERO SOUSA MD Ot I70.235 ATHSCL [place] ARTERIES OF RIGHT LEG W 05/04/2019 PIERO SOUSA MD Ot 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 [facility] 05/04/2019 PIERO SOUSA MD Ot I96 GANGRENE, NOT ELSEWHERE CLASSIFIED 05/04/2019 PIERO SOUSA MD Ot L97.512 NON-PRS CHRONIC ULCER OTH PRT RIGHT FOOT 05/04/2019 PIERO SOSUA MD Ot L97.522 NON-PRS CHRONIC ULCER OTH [...] 05/04/2019 PIERO SOUSA MD Ot I70.235 ATHSCL [place] ARTERIES OF RIGHT LEG W 05/04/2019 PIERO SOUSA MD Ot 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 [facility] 05/04/2019 PIERO SOUSA MD Ot [...] 05/04/2019 PIERO SOUSA MD Ot I70.235 ATHSCL [place] ARTERIES OF RIGHT LEG W UL 05/04/2019 [...] SERINA Ot I25.10 ATHSCL HEART DISEASE OF [place] CORONARY 05/06/2019 DEL REAL DO, SERINA Ot [...] 05/06/2019 DEL REAL DO, SERINA Ot Z79.01 SKILLED NURSING (CURRENT) USE OF ANTICOAGULANT 05/06/2019 DEL REAL DO, SERINA Ot Z79.2 ELECTRIC POWERLINE EXAMINER (CURRENT) USE OF ANTIBIOTICS 05/06/2019 DEL REAL DO SERINA Ot Z79.82 ELECTRIC POWERLINE EXAMINER (CURRENT) USE OF ASPIRIN 05/06/2019 DEL REAL DO, SERINA Ot Z79.89 1 SKILLED NURSING (CURRENT) USE OF OPIATE ANALGE 05/06/2019 DEL REAL DO, SERINA Ot Z79.89 9 OTHER ELECTRIC POWERLINE EXAMINER (CURRENT) DRUG THERAPY 05/06/2019 DEL REAL DO [...] SERINA Ot I25.10 ATHSCL HEART DISEASE OF [place] & [place] CORONARY 05/06/2019 DEL REAL DO, SERINA Ot [...] 05/06/2019 DEL REAL DO, SERINA Ot Z79.01 ELECTRIC POWERLINE EXAMINER (CURRENT) USE OF ANTICOAGULANT 05/06/2019 SERINA DEL REAL DO Ot Z79.2 ELECTRIC POWERLINE EXAMINER (CURRENT) USE OF ANTIBIOTICS 05/06/2019 COY DEL REAL DOI Ot Z79.82 SKILLED NURSING (CURRENT) USE OF ASPIRIN 05/06/2019 COY DEL REAL DOI Ot Z79.89 1 SKILLED NURSING (CURRENT) USE OF OPIATE ANALGE 05/06/2019 COY DEL REAL DOI Ot Z79.89 9 OTHER ELECTRIC POWERLINE EXAMINER (CURRENT) DRUG THERAPY 05/06/2019 GT PORTILLO SERINA [...] Ot 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 06/06/2019 Ot I65.23 OCC LUSION AND STENOSIS OF [place]AL [place] 06/06/2019 Ot 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 06/06/2019 Ot M19.90 UNS PECIFIED OSTEOARTHRITIS, UNSPECIFIED 06/06/2019 Ot M79.7 FIBR OMYALGIA 06/06/2019 Ot 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, STAGE 4 (SEVERE) 06/06/2019 Ot Q60.0 MARQUITA L AGENESIS, UNILATERAL 06/06/2019 Ot Z79.01 PAPITO G TERM (CURRENT) USE OF ANTICOAGULANT 06/06/2019 Ot Z79.82 PAPITO G TERM (CURRENT) USE OF ASPIRIN 06/06/2019 Ot Z79.891 LO NG TERM (CURRENT) USE OF OPIATE ANALGE 06/06/2019 Ot Z79.899 OT HER ELECTRIC POWERLINE EXAMINER (CURRENT) DRUG THERAPY 06/06/2019 Ot Z85.41 PER [...] Ot 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 06/06/2019 Ot I65.23 OCC LUSION AND STENOSIS OF [place]AL [place] 06/06/2019 Ot 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 06/06/2019 Ot M19.90 UNS PECIFIED OSTEOARTHRITIS, UNSPECIFIED 06/06/2019 Ot M79.7 FIBR OMYALGIA 06/06/2019 Ot 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, STAGE 4 (SEVERE) 06/06/2019 Ot Q60.0 MARQUITA L AGENESIS, UNILATERAL 06/06/2019 Ot Z79.01 PAPITO G TERM (CURRENT) USE OF ANTICOAGULANT 06/06/2019 Ot Z79.82 PAPITO G TERM (CURRENT) USE OF ASPIRIN 06/06/2019 Ot Z79.891 LO NG TERM (CURRENT) USE OF OPIATE ANALGE 06/06/2019 Ot Z79.899 OT HER ELECTRIC POWERLINE EXAMINER (CURRENT) DRUG THERAPY 06/06/2019 Ot Z85.41 PER [...] 10/15/2019 PIERO SOUSA MD Ot I70.235 ATHSCL [place] ARTERIES OF RIGHT LEG W UL 10/15/2019 PIERO SOUSA MD, Ot 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 [facility] 10/15/2019 [...] 10/15/2019 PIERO SOUSA MD Ot I70.235 ATHSCL [place] ARTERIES OF RIGHT LEG W UL 10/15/2019 PIERO SOUSA MD Ot 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 [facility] 10/15/2019 [...] 10/15/2019 PIERO SOUSA MD Ot I70.235 ATHSCL [place] ARTERIES OF RIGHT LEG W 10/15/2019 PIERO SOUSA MD Ot 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 [facility] 10/15/2019 PIERO SOUSA MD Ot I96 [...] 10/15/2019 PIERO SOUSA MD Ot I70.235 ATHSCL [place] ARTERIES OF RIGHT LEG W 10/15/2019 PIERO SOUSA MD Ot 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 [facility] 10/15/2019 PIERO SOUSA MD Ot I96 [...] 10/15/2019 PIERO SOUSA MD Ot I70.235 ATHSCL [place] ARTERIES OF RIGHT LEG W UL 10/15/2019 [...] Code Description [place] [address] MAMM OGRAM DX, RIGHT 04/13/2012 68332 MAMM OGRAM, SCREENING 04/14/2012 42125 ROUT INE VENIPUNCTURE 05/12/2012 89708 LIPI D PANEL 05/12/2012 65272 CBC 05/12/2012 15930 CMP 05/12/2012 [id number] GF R CALC (RESULT ONLY) 05/12/2012 14533 TSH 05/12/2012 09157 TRIG JOSY POINT INJ/1-2 MUS 07/14/2012 34793 ROUT INE VENIPUNCTURE 08/10/2012 83747 CMP 08/10/2012 37880 LIPI D PANEL 08/10/2012 [id number] GF R CALC (RESULT ONLY) 08/10/2012 93981 CULT URE URINE 09/21/2012 16534 UA W / CULTURE IF INDICATED 09/21/2012 80029 ROUT INE VENIPUNCTURE 11/24/2012 51871 MARQUITA L PROFILE 11/24/2012 16935 LIPI D PANEL 11/24/2012 92682 MAGNESIUM 11/24/2012 [id number] GF R CALC (RESULT ONLY) 11/24/2012 PRO/CRE UR INE PROTEIN TO CREATNINE RATIO 11/24/2012 OtolarynPiero Huber 11/30/2012 15720 ROUT INE VENIPUNCTURE 01/22/2013 65566 CRP 01/22/2013 37767 RA FACTOR 01/23/2013 ANAANA SOPHIE ANALYZER (SCREEN) 01/23/2013 89906 CCP ANTIBODY 01/23/[address] SOPHIE (RESULT ONLY) 01/25/2013 [id number] IN T DNA (RESULT ONLY) 01/25/2013 5616539 IN T MICHELINE (RESULT ONLY) 01/25/2013 89756 DNA ANTIBODY (DOUBLE STRAND) 01/26/2013 98933 MICHELINE SCR 01/26/2013 63066 JOIN T INJECTION- LARGE JOINT (SPECIFY MEDCIN DESCRIPTION) 02/22 05032 ROUT INE VENIPUNCTURE 02/24/2013 71636 EYE EXAM PERFORMED 02/24/2013 08391 CBC 02/24/2013 85167 INFL UENZA A & B (IN-HOUSE) 03/11/2013 95459 EYE EXAM PERFORMED 03/29/2013 00652 OXIMETRY 04/19/2013 15455 OXIMETRY 05/05/2013 16433 ROUT INE VENIPUNCTURE 2013 49012 CBC 2013 21094 UA W / CULTURE IF INDICATED 09/13/2013 72773 INFL UENZA A & B (IN-HOUSE) 05/04/2014 76477 OXIMETRY 05/04/2014 Results Test Result Range Complete [...] ISOMERS - 06/25/17 19:08 Prescribed Drug 1 [place](TM) NRG COMMENT NRG Amphetamine NEGATIVE ng/mL <250 [...] Automated erythrocyte mean corpuscular volume 86 [ [facility]] 80-99 Automated erythrocyte mean corpuscular h emoglobin [...] OF GROWTH Isolated NRG Bacterial blood culture [id number] NRG Bacterial blood culture - 12/19/17 09:24 [...] culture - 07/15/18 12:34 Bacterial urine culture [id number] NRG COLONY COUNT >100,000/ML NRG RML Sensitivity [...] mg/dL 8.5-10.1 Automated blood complete blood count ([facility]) panel - 07/22/18 06:45 Blood leukocytes automated [...] blood by coagulation as say 2.9 0.8-1.4 [facility] - 08/13/18 10:23 GLUCOSE 86 mg/dL 65-99 UREA NITROGEN (BUN) 16 mg/dL 7-25 CREATININE 1.51 mg/dL 0.60-0.93 eGFR NON-AFR. NIGERIEN 34 mL/min/1.73m2 > OR = 60 eGFR [...] - 11/04/18 15 :34 Prescribed Drug 1 [place](TM) NRG Creatinine 90.2 mg/dL > or = [...] 10:40 Bacteria identification in wound by culture [id number] NRG FREE TEXT EXTERNAL SMALL AMOUNT [...] culture - 12/21/18 13:21 Bacterial urine culture [id number] NRG COLONY COUNT >100,000/ML NRG FTX;REPORTABLE SUSCEPTIBILITY [...] culture - 12/25/18 10:20 Bacterial urine culture [id number] NRG COLONY COUNT 10,000 CFU/ML NRG Complete [...] 7-25 CREATININE 1.80 mg/dL 0.60-0.93 eGFR NON-AFR. NIGERIEN 28 mL/min/1.73m2 > OR = 60 eGFR [...] culture - 05/04/19 13:13 Bacterial urine culture [id number] NRG COLONY COUNT >100,000/ML NRG FTX;REPORTABLE SEE [...] Status Pt. Type Provider Facility Loc./Unit Complaint [id number] 12/21/2016 11:07:00 Document Registration [id number] 06/27/2014 11:17:00 06/27/2014 23:59: 59 [facility] Outpatient CHRISTA GLORIA APRN [id number] 05/04/2014 12:42:00 05/04/2014 23:59: 59 CLS Outpatient COLLEEN WAYNE APRN Jovana [id number] 04/08/2014 16:11:00 04/08/2014 23:59: 59 CLS Outpatient CHRISTA GLORIA APRN [id number] 12/08/2013 11:03:00 12/08/2013 23:59: 59 CLS Outpatient CHRISTA GLORIA APRN [id number] 09/28/2013 10:06:00 09/28/2013 23:59: 59 CLS Outpatient ONEYDA RUIZ APRN [id number] 09/13/2013 12:07:00 09/13/2013 23:59: 59 CLS Outpatient COLLEEN WAYNE APRN Jovana [id number] 2013 13:19:00 2013 23:59: 59 CLS Outpatient LINDA DOEUGENIO Demond [id number] 06/21/2013 16:02:00 06/21/2013 23:59: 59 CLS Outpatient LINDA DO EUGENIO Lagos [id number] 05/05/2013 10:48:00 05/05/2013 23:59: 59 CLS Outpatient LINDA DOMATTHEWA Demond [id number] 05/05/2013 10:48:00 05/05/2013 23:59: 59 CLS Outpatient LINDA DO, EUGENIO Lagos [id number] 04/19/2013 09:39:00 04/19/2013 23:59: 59 CLS Outpatient LINDA DO, EUGENIO Demond [id number] 03/11/2013 14:00:00 03/11/2013 23:59: 59 CLS Outpatient PERRI WAYNE APRNRICIA Jovana [id number] 02/24/2013 15:28:00 02/24/2013 23:59: 59 CLS Outpatient LINDA DO, EUGENIO Demond [id number] 02/22/2013 11:28:00 02/22/2013 23:59: 59 CLS Outpatient LINDA DO, EUGENIO Demond [id number] 02/22/2013 11:28:00 02/22/2013 23:59: 59 CLS Outpatient LINDA DO, EUGENIO Demond [id number] 02/11/2013 16:04:00 02/11/2013 23:59: 59 CLS Outpatient HERNAN CRUZ MD [id number] 01/22/2013 08:45:00 01/22/2013 23:59: 59 CLS Outpatient LINDA DO, EUGENIO K [id number] 11/24/2012 08:59:00 11/24/2012 23:59: 59 CLS Outpatient EUGENIO LINDA DO [id number] 05/12/2012 08:25:00 05/12/2012 23:59: 59 CLS Outpatient EUGENIO LINDA DO [id number] 04/13/2012 09:56:00 04/13/2012 23:59: 59 CLS Outpatient EUGENIO LINDA DO [id number] 04/01/2012 12:14:00 04/01/2012 23:59: 59 CLS Outpatient [id number] 01/17/2012 10:03:00 01/17/2012 23:59:5 9 CLS Outpatient EUGENIO LINDA DO [id number] 01/17/2012 10:03:00 01/17/2012 23:59: 59 CLS Outpatient [id number] 11/16/2012 14:32:00 Document Registration [id number] 10/19/2012 11:25:00 Document Registration [id number] 09/21/2012 13:09:00 Document Registration [id number] 08/10/2012 09:38:00 Document Registration [id number] 07/14/2012 15:04:00 Document Registration [id number] 07/07/2012 14:09:00 Document Registration [id number] 05/04/2019 14:31:00 18:15:00 DIS Inpatient DEL REAL SERINA Liu [facility] 4TH TRAE,N/V/D [id number] 03/04/2019 10:26:00 11:10:00 DIS Outpatient HERNAN CRUZ [facility] OSTEOMYCLITIS OF TOE [id number] 02/12/2019 09:31:00 23:59:59 CLS Outpatient PIERO SOUSA MD [facility] WOUNDCARE [id number] 02/05/2019 09:47:00 23:59:59 CLS Outpatient PIERO SUOSA MD [facility] WOUNDCARE [id number] 01/29/2019 09:49:00 23:59:59 CLS Outpatient PIERO SOUSA MD [facility] WOUNDCARE [id number] 01/22/2019 10:25:00 23:59:59 CLS Outpatient PIERO SOUSA MD [facility] WOUNDCARE [id number] 01/12/2019 13:28:00 23:59:59 CLS Outpatient PIERO SOUSA MD [facility] WOUNDCARE [id number] 12/25/2018 11:02:00 14:11:00 DIS Emergency YUDI MORRISON APRN [facility] ER POSS SEPTIC [id number] 12/21/2018 14:20:00 13:00:00 DIS Inpatient HERNAN CRUZ MD [facility] 4TH SEPSIS;OSTEOMYELITIS;AC JULIANNA RENAL FAILURE;R SHOULD- [id number] 12/16/2018 08:54:00 23:59:59 CLS Preadmit OTHER, UNLISTED [facility] RAD AORTIC THROMBUS [id number] 11/11/2018 09:42:00 23:59:59 CLS Preadmit CHRISTA GLORIA [facility] REHAB S/P CVA [id number] 10/30/2018 20:04:00 23:06:00 DIS Emergency ALDEN ALVARADO [facility] ER R FOOT PAIN [id number] 08/11/2018 12:00:00 23:59:59 CLS Preadmit MARIA DOLORES CRYSTAL FACC, DIMITRI DOWNING CCDS [facility] CATH CVA,CAD,HTN,HILARIO [id number] 07/21/2018 11:00:00 12:00:00 DIS Inpatient SERINA DEL REAL DO, V [facility] IRF CVA [id number] 07/15/2018 14:10:00 10:45:00 DIS Inpatient HERNAN CRUZ MD [facility] 4TH SUBACUTE CVA/UTI [id number] 05/10/2018 08:45:00 02/17/2 019 23:59:59 CLS Outpatient MILTON CRYSTAL, HERNY Rodgers [facility] RAD POSSIBLE DVT [id number] 05/09/2018 18:24:00 019 23:00:00 DIS Emergency MICKEY KENNEDY [facility] ER VOMITING/L LEG PAIN [id number] 02/12/2018 00:40:00 018 02:35:00 DIS Emergency KEITH FERNANDEZ DO [facility] ER BLOOD IN URINE [id number] 12/19/2017 08:03:00 018 12:27:00 DIS Emergency GUSTAVO HUTSON MD [facility] ER ABD PAIN [id number] 09/11/2017 10:45:00 018 23:59:59 CLS Outpatient DEJA ZHONG [employer] [facility] RAD ASYMPTOMIC MENOPAUSAL STATE [id number] 08/07/2017 13:34:00 018 17:01:00 DIS Emergency YUDI MORRISON [employer] [facility] ER CP, [id number] 05/24/2016 11:42:00 017 17:03:00 DIS Emergency GAGAN CRYSTAL, SERGIO Griffith [facility] ER RIGHT SIDE LOWER ABD PA IN/NAUSEA [id number] 03/18/2016 12:32:00 016 13:47:00 DIS Emergency MILTON CRYSTAL, HENRY Rodgers [facility] ER RIGHT LEG PAIN [id number] 12/29/2014 10:02:00 015 23:59:59 CLS Preadmit EDDIE GLORIA [employer] [facility] REHAB [id number] 06/30/2013 07:15:00 014 23:59:59 CLS Outpatient KASIA CHRISTOPHER MD [facility] PREOP SCREENING [id number] 12/02/2012 11:53:00 013 23:59:59 CLS Outpatient KASIA CHRISTOPHER MD [facility] PREOP SCREENING [id number] 11/06/2012 21:56:00 013 06:50:00 DIS Outpatient EUGENIO LINDA DO [facility] SLEEP SNORING [id number] 10/19/2019 10:00:00 P GRACE WHITTEN MD FACC, DIMITRI DOWNING CCDS [facility] CATH CAD [id number] 06/05/2019 20:20:00 Document Registration [id number] 12/23/2014 10:01:00 Document Registration [id number] 12/23/2014 10:01:00 Document Registration [id number] 05/06/2012 07:51:00 Document Registration [id number] 04/22/2012 09:16:00 Document Registration [id number] 02/24/2012 10:26:00 Document Registration [id number] 06/25/2019 13:20:00 06/25/2019 23:59:5 9 CLS Outpatient CHRISTA GLORIA APRN [facility] [id number] 03/19/2019 10:20:00 Document Registration [id number] 11/04/2018 14:40:00 Document Registration [id number] 08/13/2018 09:40:00 Document Registration [id number] 01/30/2018 10:40:00 Document Registration [id number] 06/25/2017 18:40:00 Document Registration [id number] 12/20/2016 10:40:00 Document Registration
[2019-10-19 09:02] LABS: PROTHROMBIN TIME PATIENT 13.9 SEC (12.2-14.7)
[2019-10-19 09:07] LABS: ALBUMIN 3.7 GM/DL (3.2-4.5); BILIRUBIN,TOTAL 0.4 MG/DL (0.1-1.0); CALCIUM 8.9 MG/DL (8.5-10.1); CREATININE SERUM 1.97 MG/DL (0.60-1.30); POTASSIUM 3.6 MMOL/L (3.6-5.0); TOTAL PROTEIN 6.3 GM/DL (6.4-8.2)
[~2019-10-19 10:00] MED LIST changes: +HEParin (CATH LAB) 2,000 ML IV ONE; +ISOS30TA3 PO; +LIDOCAINE 1% INJ 20 ML 20 ML VIAL ONE; +MIDAZOLAM 5 MG/5 ML (VERSED) VIAL ONE; +MULT-1136 PO; +MULT-567 PO; -MULT1TAB69 PO; +NITR0.3T7 SL; +NS IV 1000 ML 1,000 ML IV SCH; +NS IV 1000 ML 1,000 ML ONE; -WARF2.5T PO; +WRF2.5T PO; +fentaNYL INJECTION 100 MCG/2 ML AMP ONE
[2019-10-19] MEDS ORDERED: HEParin 1000 UNIT/ML (10ML VIAL) FOR BOLUS ONE (10:05)
[2019-10-19] MEDS ORDERED: EPTIFIBATIDE BOLUS 10 ML IV ONE ×2 (10:06→10:10)
[2019-10-19] MEDS ORDERED: NITRO DRIP 25000 MCG/D5W 250 ML IV ONE (10:10)
[2019-10-19] MEDS ORDERED: MIDAZOLAM 2 MG/2 ML (VERSED) VIAL ONE (10:47)
[2019-10-19] MEDS ORDERED: ASPIRIN 81 MG CHEW (CHILDREN'S ASA) ONE (11:22)
[2019-10-19] MEDS ORDERED: CLOPIDOGREL 300 MG (PLAVIX) TABLET PO ONE (11:22)
--- NOTE | 2019-10-19 11:31 | Cardiac Procedure Note-CS/ASA ---
Pre-Procedure Note Pre-Op Procedure Note H&P Reviewed The H&P was reviewed, patient examined and no changes noted. Date H&P Reviewed: Oct 19, 2019 Time H&P Reviewed: 09:10 Conscious Sedation Pre-Proced Time 09:10 ASA Score 3 For ASA 3 and 4: Consider anesthesia and medical clearance. Also, for patients with a history of failed moderate sedation consider anesthesia. Airway Lungs Heart ASA score ASA 1: a normal healthy patient ASA 2: a patient with a mild systemic disease (mid diabetes, controlled hypertension, obesity ASA 3: a patient with a severe systemic disease that limits activity (angina, COPD, prior Myocardial infarction) ASA 4: a patient with an incapacitating disease that is a constant threat to life (CHF, renal failure) ASA 5: a moribund patient not expected to survive 24 hrs. (ruptured aneurysm) ASA 6: a declared brain- patient whose organs are being harvested. For emergent operations, add the letter E after the classification Mallampati Classification Grade 3 Sedation Plan Analgesia, Amnesia, Plan communicated to team members, Discussed options with patient/fam, Discussed risks with patient/fam The patient is an appropriate candidate to undergo the planned procedure, sedation, and anesthesia. The patient immediately re-assessed prior to indication. DIMITRI WHITTEN MD FACP FAC CCDS Oct 19, 2019 11:31
[2019-10-19] MEDS ORDERED: PATIENT MAY USE OWN MEDS, ALL PO SCH (11:45)
[2019-10-19] MEDS ORDERED: HYDROcodone/APAP 5 MG/325 MG (LORTAB) TAB PO PRN (11:45)
[2019-10-19] MEDS ORDERED: NON-FORMULARY MEDICATION 1 EA EA (Ondansetron HCl 4 MG) PO PRN (11:45)
[2019-10-19] MEDS ORDERED: NITROGLYCERIN 0.3 MG SL PRN (11:45)
[2019-10-19] MEDS ORDERED: meTOprolol SUCCINATE 100 MG (TOPROL XL) TAB PO NR (12:45)
[2019-10-19] MEDS ORDERED: amLODIPine 10 MG (NORVASC) TAB PO NR (12:45)
--- NOTE | 2019-10-19 12:45 | CARDIAC CATHETERIZATION ---
DATE OF SERVICE: 10/19/2019 CARDIAC CATHETERIZATION AND CORONARY INTERVENTION REPORT INDICATION FOR PROCEDURE: The patient is a 74-year-old lady, who has known coronary artery disease and who has been experiencing increasing angina. Cardiac catheterization was carried out today after having obtained an informed consent. She was also made aware of her additional risk of renal insufficiency, given baseline renal insufficiency. She provided informed consent for cardiac catheterization and ad hoc coronary intervention, if needed. DESCRIPTION OF PROCEDURE: She was brought to the cardiac catheterization laboratory. Vigorous perioperative hydration was carried out before, during and after the procedure. The right groin was prepared and draped in the usual sterile fashion. Lidocaine 1% was used for local anesthesia. Modified Seldinger technique was used to advance a 5-Tongan sheath in the right femoral artery. The descending thoracic aorta, abdominal aorta and the aortoiliac system are quite tortuous and we advanced an exchanged length wire into the ascending aorta and then exchanged the short 5-Tongan sheath for a 55 cm 6-Tongan sheath. We used a 6-Tongan JR4 catheter was used for the right coronary angiography and a 5-Tongan JL4 catheter for left coronary angiography. Subsequently, we carried out percutaneous intervention of the left circumflex artery that is described below. PERCUTANEOUS INTERVENTION TO LEFT CIRCUMFLEX ARTERY: We used multiple guide catheters, which were not providing adequate engagement or support. We were able to finally get good engagement and support with a 6-Tongan contralateral support JL3.5 guide. We initially tried to use a ChoICE extra support wire, but it was not advancing well in the tortuous left circumflex. We then used a Choice PT Graphix wire, which we were able to advance with moderate difficulty across the lesion in the mid to distal left circumflex artery and the tip was placed in the distal vessel. We carried out balloon angioplasty first with 1.5 x 20 mm balloon because we were not able to still advance a stent, with a 2.0 x 20 mm balloon. After this, we were able to advance a Resolute Integrity 2.25 x 14 mm stent that was deployed at 16 atmospheres. We then carried out further balloon angioplasty of the proximal half of the stented segment with NC Quantum 2.5 x 12 mm balloon. This was to make sure that the proximal stented segment, which was the most diseased segment, was fully dilated and that the stent was opposed to the vessel wall. Subsequent angiography revealed no significant residual stenosis and flow throughout the vessel is normal. She tolerated the procedure well. At the end of the procedure, we exchanged the long sheath for a short 6-Tongan sheath. This was sutured in place and the patient was transferred to the floor for manual sheath removal. The patient received 5000 units of intravenous heparin and double bolus Integrilin during the procedure and she received 324 mg of oral aspirin and 600 mg of oral Plavix at the end of the procedure. HEMODYNAMICS: Left heart catheterization was not performed. CORONARY ANGIOGRAPHY: Diffuse coronary calcification is present. Left main coronary artery does not exhibit significant disease. Left anterior descending artery has moderate diffuse disease. There is approximately 70% stenosis in the very distal segment of the left anterior descending, where the vessel is not suitable for intervention. The left circumflex artery had a 90% stenosis in its mid to distal portion that was successfully stented as described above. Following deployment of Resolute Integrity 2.25 x 14 mm stent, there was no significant residual stenosis. Right coronary artery is heavily calcified and diffusely moderately diseased. Following the origin of the posterior descending branch, the posterolateral system exhibits 90% stenosis. This was not intervened on today. CONCLUSIONS: Coronary artery disease primarily consisting of 90% mid vessel stenosis of the mid to distal left circumflex artery and 90% stenosis of the posterolateral system of the right coronary. The rest of the coronary arteries exhibit diffuse moderate disease and heavy coronary calcification. The patient underwent successful stenting of the mid to distal left circumflex with Resolute 2.25 x 14 mm stent on 10/19/2019. DISCUSSION AND RECOMMENDATIONS: Dual antiplatelet therapy is being added to the regimen. Because she is also on apixaban, we will stop aspirin in a few days. Plavix will be continued for a year and that will then be replaced by aspirin. Apixaban will continue without interruption. Job ID: [id number] DocumentID: [id number] Dictated Date: 10/19/2019 11:48:47 Commercial Assistant Date: 10/19/2019 12:45:27 Dictated By: DIMITRI WHITTEN MD, MA, FACP, FACC, MTDD
[2019-10-19] MEDS ORDERED: NITROGLYCERIN 0.4 MG SL TABS BTL 25'S SL PRN (14:45)
[2019-10-19] MEDS ORDERED: fentaNYL INJECTION 100 MCG/2 ML AMP ONE (14:49)
[2019-10-19] MEDS ORDERED: ATROPINE INJECTION 1 MG/10 ML SYR (ABBOTT) ONE (14:49)
[2019-10-19] MEDS ORDERED: ONDANSETRON 4 MG/2 ML (SDV) Z0FRAN ONE (14:49)
[2019-10-19] MEDS ORDERED: HYDR-3812 PO (15:08)
[2019-10-19] MEDS ORDERED: ASPI-983 PO (15:08)
--- NOTE | 2019-10-19 15:11 | NUR ---
THE PT CAME THRU THE CATH AND WHEN THE PT WAS BROUGHT TO THE ICU THE NURSE ASKED ME TO LOOKED OVER THE MED REC PT HAD ALL HER MEDS IN HER PURSE AND WAS AND WAS ABLE TO TELL ME HOW/WHEN SHE TAKES EACH HYDROXYCHLOROQUINE 200MG- DIRECTIONS ARE 1 TAB BID BUT PT TAKES 2 TABS DAILY THE FOLLOWING ARE FILL DATES: 08-26-2019 METOPROLOL SUCC 50MG #90/90DS 08-26-2019 HYDROXYCHLOROQUINE 200MG #60/30DS 09-01-2019 ISOSORBIDE MONO ER 30MG #30/30DS 09-08-2019 VIIBYRD 20MG #30/30DS 09-21-2019 NORCO 5/325MG #84/28DS 09-22-2019 PREDNISONE 10MG #30/30DS 10-04-2019 LISINOPRIL 10MG #30/30DS 10-04-2019 ELIQUIS 5MG #30/30DS 10-05-2019 ATORVASTATIN 20MG #30/30DS OTC MEDS: ASPIRIN MTV LOPERAMIDE
[2019-10-19] MEDS ORDERED: LOPE2TAB34 PO (15:19)
[2019-10-19] MEDS ORDERED: [UNRECOGNIZED DRUG - CODE] MC (15:19)
[2019-10-19] MEDS ORDERED: ONDANSETRON 4 MG (ZOFRAN) ORAL DISSOLVE TAB PO PRN (15:45)
[2019-10-19] MEDS ORDERED: DIPHENOXYLATE/ATROPINE 2.5MG/0.025MG (LOMOTIL) TAB PO PRN (15:45)
[2019-10-19] MEDS ORDERED: fentaNYL INJECTION 100 MCG/2 ML AMP IVP ONE (16:00)
[2019-10-19] MEDS ORDERED: ONDANSETRON 4 MG/2 ML (SDV) Z0FRAN IVP ONE (16:30)
[2019-10-19] MEDS: NS IV 1000 ML 1,000 ML IV SCH ×2 (17:19→22:03)
[2019-10-20] VITALS (12 sets, daily range): BP systolic 101–152; BP diastolic 46–85
[2019-10-20 03:24] LABS: MEAN PLATELET VOLUME 11.4 FL (7.4-10.4); RED CELL DISTRIBUTION WIDTH 14.7 % (10.0-14.5); WHITE BLOOD COUNT 10.2 10^3/uL (4.3-11.0)
[2019-10-20 03:39] LABS: POTASSIUM 3.9 MMOL/L (3.6-5.0)
[2019-10-20 03:41] LABS: CALCIUM 7.9 MG/DL (8.5-10.1)
[2019-10-20 03:45] LABS: CREATININE SERUM 1.84 MG/DL (0.60-1.30)
[2019-10-20 04:19] LABS: MAGNESIUM 1.7 MG/DL (1.6-2.4)
[2019-10-20] MEDS ORDERED: MAGNESIUM 1 GM/100 ML IVPB 200 ML IV ONE (05:12)
[2019-10-20] MEDS: MAGNESIUM 1 GM/100 ML IVPB 100 ML IV SCH ×2 (05:18→06:35)
[2019-10-20] MEDS ORDERED: MULTIVIT W/MINERALS TAB (THERAGRAN M) PO SCH (07:00)
[2019-10-20] MEDS ORDERED: HYDROXYCHLOROQUINE 200 MG (PLAQUENIL) TAB PO SCH (08:00)
--- NOTE | 2019-10-20 08:03 | Progress Note - Cardiology ---
Cardiology SOAP Progress Note Subjective: Lying in bed. Denies c/o CP or palpitations. Denies any right groin discomfort. Denies any SOB at this time. Objective: I&O/Vital Signs 10/19/19 10/19/19 10/19/19 10/20/19 22:09 23:00 23:58 00:00 Temp 36.1 Pulse 62 57 67 Resp 14 18 15 B/P (MAP) 101/65 (77) 113/49 (70) 131/66 (87) Pulse Ox 98 96 97 O2 Delivery Room Air Room Air Room Air 10/20/19 10/20/19 10/20/19 10/20/19 00:00 00:00 01:00 01:00 Temp 36.2 Pulse 63 63 Resp 17 B/P (MAP) 101/57 (72) Pulse Ox 96 94 O2 Delivery Room Air Room Air 10/20/19 10/20/19 10/20/19 10/20/19 02:00 03:00 04:00 04:00 Pulse 82 60 71 Resp 26 18 21 B/P (MAP) 110/59 (76) 119/61 (80) 152/61 (91) Pulse Ox 96 96 98 97 O2 Delivery Room Air Room Air Room Air Room Air 10/20/19 10/20/19 10/20/19 10/20/19 05:00 06:00 07:28 08:09 Temp 36.5 Pulse 64 56 Resp 11 16 B/P (MAP) 145/64 (91) 111/46 (67) Pulse Ox 99 98 97 O2 Delivery Room Air Room Air Room Air 10/20/19 00:00 Intake Total 1750 ml Output Total 625 ml Balance 1125 ml Weight (Pounds): 161 Weight (Ounces): 0 Weight (Calculated Kilograms): 73.974665 Side: right Groin site without hematoma: Yes Condition: DP/PT pulses palpable, extremity w/d/p Bruising: moderated bruising Constitutional: AAO x 3 Respiratory: No accessory muscle use, No respiratory distress; chest expansion is symmetric, chest is bilaterally symmetric, lungs clear to auscultation Cardiovascular: regular rate-rhythm; No JVD; S1 and S2 Gastrointestional: No tender; soft, round, audible bowel sounds Extremities: no lower extremity edema bilateral Neurologic/Psychiatric: grossly intact (moves all etremities) Skin: No rash on exposed areas, No ulcerations on exposed areas Results/Procedures: Labs Laboratory Tests 10/19/19 13:55: Activated Partial Thromboplast Time 54H 10/20/19 03:05: White Blood Count 10.2, Red Blood Count 3.71L, Hemoglobin 10.0L, Hematocrit 34L, Mean Corpuscular Volume 91, Mean Corpuscular Hemoglobin 27, Mean Corpuscular Hemoglobin Concent 30L, Red Cell Distribution Width 14.7H, Platelet Count 243, Mean Platelet Volume 11.4H, Sodium Level 141, Potassium Level 3.9, Chloride Level 116H, Carbon Dioxide Level 17L, Anion Gap 8, Blood Urea Nitrogen 25H, Creatinine 1.84H, Estimat Glomerular Filtration Rate 27, BUN/Creatinine Ratio 14, Glucose Level 82, Calcium Level 7.9L, Phosphorus Level 4.0, Magnesium Level 1.7 Microbiology 10/19/19 MRSA Screen - Final, Complete MRSA not isolated A/P: Assessment: Coronary artery disease primarily consisting of 90% mid vessel stenosis of the mid to distal left circumflex artery and 90% stenosis of the posterolateral system of the right coronary. The rest of the coronary arteries exhibit diffuse moderate disease and heavy coronary calcification. S/P successful stenting of the mid to distal left circumflex with Resolute 2.25 x 14 mm stent per cardiac cath of 10/19/2019. Unintentional weight loss of undetermined etiology Hypertension CVA with L homonymous hemianopsia - small to moderate-sized area of acute/subacute infarct involving the right occipital lobe. There is no evidence of intra-cranial hemorrhage, brain herniation, or midline shift on CT of the head on 07-15-18. Management of CVA is by her pcp Carotid artery disease - carotid u/s of 07-15-18, there is mod bilat carotid arterial plaque, worse (50-70% stenosis) on the right Ischemic cardiomyopathy. Echo of May 05, 2019: LVEF 50-55%, mild MR. RVSP 20 mmHg Intolerant to warfarin due to wide variations in INR. Currently on apixaban H/O cervical cancer for which she has undergone chemo (last tx 12 years ago) H/O sleep apnea, non-compliant with CPAP tx HLD - statin tx followed by her PCP H/O sinus bradycardia and V-tach during ED visit in November 2017 - transferred to [facility] at that time Chronic diarrhea Reports chronic lymphedema to right leg Depression H/o lupus and gout (details unknown) followed and treated by pcp Family h/o CAD (son has had coronary stenting; mother has had CVA) Plan: S/P successful coronary intervention OK to discharge home with out pt f/u Continue DAPT with ASA and Plavix Continue OAC with Eliquis F/U appt next week at which time we will likely stop ASA, continue Plavix (d/t recent stent placement), continue OAC TATY ENGLE Oct 20, 2019 08:03
[2019-10-20] MEDS ORDERED: APIXABAN 2.5 MG (ELIQUIS) TABLET PO SCH (09:00)
[2019-10-20] MEDS ORDERED: NON-FORMULARY MEDICATION 1 EA EA (Vilazodone Hydrochloride (Viibryd) 20 MG) PO SCH (09:00)
[2019-10-20] MEDS ORDERED: meTOprolol SUCCINATE 100 MG (TOPROL XL) TAB PO SCH (09:00)
[2019-10-20] MEDS ORDERED: CLOPIDOGREL 75 MG (PLAVIX) TABLET PO SCH (09:00)
[2019-10-20] MEDS ORDERED: ISOSORBIDE MONONITRATE 30 MG (IMDUR) TAB PO SCH (09:00)
[2019-10-20] MEDS ORDERED: ASPIRIN 81 MG CHEW (CHILDREN'S ASA) PO SCH (09:00)
[2019-10-20] MEDS ORDERED: amLODIPine 10 MG (NORVASC) TAB PO SCH (09:00)
[2019-10-20] MEDS ORDERED: NON-FORMULARY MEDICATION 1 EA EA (Multivitamin 1 EACH) PO SCH (09:00)
[2019-10-20] MEDS ORDERED: APIX2.5T PO (09:02)
[2019-10-20] MEDS ORDERED: MTP100TCR PO (09:02)
[2019-10-20] MEDS ORDERED: CLOP75TA28 PO (09:02)
[2019-10-20] MEDS ORDERED: ASPI-999 PO (09:02)
--- NOTE | 2019-10-20 09:03 | Discharge Inst-Cardiology ---
Discharge Inst-Cardiac Discharge Medications New Medications: Apixaban (Eliquis) 2.5 Mg Tablet 2.5 MG PO BID, #60 TAB 4 Refills Aspirin (Aspirin) 81 Mg Tab.chew 81 MG PO DAILY, #30 TAB 5 Refills Clopidogrel Bisulfate (Clopidogrel) 75 Mg Tablet 75 MG PO DAILY, #30 TAB 5 Refills Metoprolol Succinate (Metoprolol Succinate) 100 Mg Tab.er.24h 100 MG PO DAILY, #30 TAB 5 Refills Continued Medications: Atorvastatin Calcium (Atorvastatin Calcium) 20 Mg Tablet 20 MG PO HS, TAB Hydrocodone/Acetaminophen (Hydrocodone-Acetamin 5-325 mg) 1 Each Tablet 1 EA PO TID PRN for PAIN-MODERATE (5-7), TAB Hydroxychloroquine Sulfate (Hydroxychloroquine Sulfate) 200 Mg Tablet 400 MG PO DAILY, TAB TAKES 2 (200MG) TABS Isosorbide Mononitrate (Isosorbide Mononitrate ER) 30 Mg Tab.er.24h 30 MG PO DAILY, TAB Loperamide HCl (Loperamide) 2 Mg Tablet 2 MG PO UD PRN for DIARRHEA, TAB Multivitamin (Multivitamin) 1 Each Tablet 1 EACH PO DAILY, TAB Nitroglycerin (Nitroglycerin) 0.3 Mg Tab.subl 0.3 MG SL NEEDED PRN for CHEST PAIN (ANGINA) for 30 Days, #30 TAB 0 Refills Ondansetron HCl (Ondansetron HCl) 4 Mg Tablet 4-8 MG PO BID PRN for NAUSEA/VOMITING-1ST LINE, TAB Prednisone (Prednisone) 10 Mg Tab 10 MG PO DAILY, TAB Vilazodone Hydrochloride (Viibryd) 20 Mg Tablet 20 MG PO DAILY, TAB Discontinued Medications: Apixaban (Eliquis) 5 Mg Tablet 5 MG PO HS, TAB Aspirin (Aspirin EC) 81 Mg Tablet.dr 81 MG PO DAILY, TAB Lisinopril (Lisinopril) 10 Mg Tablet 10 MG PO 1200, TAB Metoprolol Succinate (Metoprolol Succinate) 50 Mg Tab.er.24h 50 MG PO 1200, TAB New, Converted or Re-Newed RX: Transmitted to Pharmacy Patient Instructions Patient Instructions: Please schedule follow up appointment to see Dr. Olvera in 1 week TATY ENGLE Oct 20, 2019 09:03
--- NOTE | 2019-10-20 12:08 | Progress Note - Cardiology ---
Cardiology SOAP Progress Note Subjective: No cp or palp or syncope Mild gen weakness and malaise No focal weakness No n/v/d No groin or leg discomfort Objective: I&O/Vital Signs 10/20/19 10/20/19 10/20/19 10/20/19 01:00 01:00 02:00 03:00 Pulse 63 63 82 60 Resp 17 26 18 B/P (MAP) 101/57 (72) 110/59 (76) 119/61 (80) Pulse Ox 94 96 96 O2 Delivery Room Air Room Air Room Air 10/20/19 10/20/19 10/20/19 10/20/19 04:00 04:00 05:00 06:00 Pulse 71 64 56 Resp 21 11 16 B/P (MAP) 152/61 (91) 145/64 (91) 111/46 (67) Pulse Ox 98 97 99 98 O2 Delivery Room Air Room Air Room Air Room Air 10/20/19 10/20/19 10/20/19 10/20/19 07:00 07:00 07:28 08:00 Temp 36.5 Pulse 54 55 65 Resp 11 20 B/P (MAP) 148/60 (89) 140/55 (83) Pulse Ox 95 95 O2 Delivery Room Air Room Air 10/20/19 10/20/19 10/20/19 08:09 09:00 10:00 Pulse 56 62 Resp 18 21 B/P (MAP) 150/58 (88) 128/85 (99) Pulse Ox 97 O2 Delivery Room Air Room Air Room Air 10/19/19 23:59 Intake Total 1750 ml Output Total 625 ml Balance 1125 ml Weight (Pounds): 161 Weight (Ounces): 0 Weight (Calculated Kilograms): [id number] Side: right Groin site without hematoma: Yes Condition: DP/PT pulses palpable, extremity w/d/p Bruising: moderated bruising Constitutional: AAO x 3 Respiratory: No accessory muscle use, No respiratory distress; chest expansion is symmetric, chest is bilaterally symmetric, lungs clear to auscultation Cardiovascular: regular rate-rhythm; No JVD; S1 and S2 Gastrointestional: No tender; soft, round, audible bowel sounds Extremities: no lower extremity edema bilateral Neurologic/Psychiatric: grossly intact (moves all etremities) Skin: No rash on exposed areas, No ulcerations on exposed areas Results/Procedures: Labs Laboratory Tests 10/19/19 13:55: Activated Partial Thromboplast Time 54H 10/20/19 03:05: White Blood Count 10.2, Red Blood Count 3.71L, Hemoglobin 10.0L, Hematocrit 34L, Mean Corpuscular Volume 91, Mean Corpuscular Hemoglobin 27, Mean Corpuscular Hemoglobin Concent 30L, Red Cell Distribution Width 14.7H, Platelet Count 243, Mean Platelet Volume 11.4H, Sodium Level 141, Potassium Level 3.9, Chloride Level 116H, Carbon Dioxide Level 17L, Anion Gap 8, Blood Urea Nitrogen 25H, Creatinine 1.84H, Estimat Glomerular Filtration Rate 27, BUN/Creatinine Ratio 14, Glucose Level 82, Calcium Level 7.9L, Phosphorus Level 4.0, Magnesium Level 1.7 Microbiology 10/19/19 MRSA Screen - Final, Complete MRSA not isolated Laboratory Tests 10/19/19 08:35 10/20/19 03:05 A/P: Assessment: CAD. Card cath of 10/19/19: 90% mid vessel stenosis of the mid to distal left circumflex artery and 90% stenosis of the posterolateral system of the right coronary. The rest of the coronary arteries exhibit diffuse moderate disease and heavy coronary calcification. S/P successful stenting of the mid to distal left circumflex with Resolute 2.25 x 14 mm stent CKD 4. Appears stable after cath of 10/19/19 Recent intentional weight loss of undetermined etiology Hypertension CVA with L homonymous hemianopsia - small to moderate-sized area of acute/subacute infarct involving the right occipital lobe. There is no evidence of intra-cranial hemorrhage, brain herniation, or midline shift on CT of the head on 07-15-18. Management of CVA is by her pcp Carotid artery disease - carotid u/s of 07-15-18, there is mod bilat carotid arterial plaque, worse (50-70% stenosis) on the right Ischemic cardiomyopathy. Echo of May 05, 2019: LVEF 50-55%, mild MR. RVSP 20 mmHg Intolerant to warfarin due to wide variations in INR. Currently on apixaban H/O cervical cancer for which she has undergone chemo (last tx 12 years ago) H/O sleep apnea, non-compliant with CPAP tx HLD - statin tx followed by her PCP H/O sinus bradycardia and V-tach during ED visit in November 2017 - transferred to [facility] at that time Chronic diarrhea Reports chronic lymphedema to right leg Depression H/o lupus and gout (details unknown) followed and treated by pcp Family h/o CAD (son has had coronary stenting; mother has had CVA) Plan: S/P successful coronary intervention. I had a long and detailed discussion with her, discussed her CV and other issues, findings of card cath, and the interventions undertaken. Questions answered OK to discharge home with out pt f/u Continue DAPT with ASA and Plavix Continue OAC with Eliquis F/U appt next week at which time we will likely stop ASA, continue Plavix (d/t recent stent placement), continue OAC DIMITRI WHITTEN MD FACP FAC CCDS Oct 20, 2019 12:08
--- NOTE | 2019-10-20 13:10 | NUR ---
PT DISCHARGED HOME VIA PRIVATE VEHICLE WITH NO VOICED QUESTIONS OR CONCERNS. MEDICATION LIST WENT OVER WITH PATIENT AND SHE VOICED UNDERSTANDING. GROIN SITE CARE PROVIDED VERBALLY AND VIA WRITTEN INSTRUCTIONS GIVEN TO PATIENT. SITE BENIGN WITH NO COMPLICATIONS NOTED ON DISCHARGE. ALL PATIENTS MEDICATIONS THAT WERE LOCKED UP GIVEN BACK TO PATIENT PRIOR TO DISCHARGE. ALL PERSONAL BELONGINGS WITH PATIENT. DISCHARGED VIA W/C TO ED ENTRANCE WHERE SON WAS AWAITING TO TAKE HER HOME.
== END 2019-10-20 13:10 | disposition home or self-care (01) ==
LOC: CATH 10:00 → ICU 12:25 → CATH 10-20 13:10
PROVIDERS: ATTEND Internal Medicine Cardiovascular Disease
DX: I25.10 Atherosclerotic heart disease of native coronary artery without angina pectoris (principal); Z11.2 Encounter for screening for other bacterial diseases; R11.0 Nausea; K52.9 Noninfective gastroenteritis and colitis, unspecified; G47.33 Obstructive sleep apnea (adult) (pediatric); I10 Essential (primary) hypertension; I65.23 Occlusion and stenosis of bilateral carotid arteries; E78.00 Pure hypercholesterolemia, unspecified; I25.5 Ischemic cardiomyopathy; R63.4 Abnormal weight loss; I69.398 Other sequelae of cerebral infarction; H53.462 Homonymous bilateral field defects, left side; I89.0 Lymphedema, not elsewhere classified; M32.9 Systemic lupus erythematosus, unspecified; E78.5 Hyperlipidemia, unspecified; M10.9 Gout, unspecified; F32.9 Major depressive disorder, single episode, unspecified; F17.210 Nicotine dependence, cigarettes, uncomplicated; Z79.899 Other long term (current) drug therapy; Z79.82 Long term (current) use of aspirin; Z79.01 Long term (current) use of anticoagulants; Z85.41 Personal history of malignant neoplasm of cervix uteri; Z92.21 Personal history of antineoplastic chemotherapy; Z91.19 Patient's noncompliance with other medical treatment and regimen; Z82.49 Family history of ischemic heart disease and other diseases of the circulatory system
CPT/HCPCS: 80053; 80061; 85027; 85610; 85730; 87081; 93454; C1725 ×2; C1769 ×3; C1874 ×2; C1887 ×4; C1894 ×3; C9600; 36415; 80048; 83735; 84100; 93005

== ENCOUNTER 2020-01-24 06:47 | Inpatient (IN) | payer MEDICARE, MEDICAID ==
[~2020-01-24] VITALS: Ht 152.4 cm; Wt 62.2 kg
[2020-01-24] VITALS (10 sets, daily range): BP systolic 121–149; BP diastolic 56–85
[~2020-01-24 06:47] MED LIST changes: +AMLO-250 PO; +AMLO-251 PO; -AMLO10TA7 PO; -AMLO5TAB9 PO; +APIX2.5T PO; +ASPI-1238 PO; -ASPI-983 PO; +CLOP75TA28 PO; -HEParin (CATH LAB) 2,000 ML IV ONE; -LIDOCAINE 1% INJ 20 ML 20 ML VIAL ONE; +LOPE2TAB34 PO; -MIDAZOLAM 5 MG/5 ML (VERSED) VIAL ONE; +MTP100TCR PO; -NS IV 1000 ML 1,000 ML IV SCH; -NS IV 1000 ML 1,000 ML ONE; +[UNRECOGNIZED DRUG - CODE] MC; -fentaNYL INJECTION 100 MCG/2 ML AMP ONE
--- NOTE | 2020-01-24 07:05 | NUR ---
ASSUMMED CARE OF PT.
--- NOTE | 2020-01-24 07:11 | ED General ---
General Chief Complaint: Cough/Cold/Flu Symptoms Stated Complaint: BODY ACHES/VOMITING Nursing Triage Note: TO ED VIA [facility] TO ROOM 10 UNDER COVID 19 PRECAUTIONS R/T C/O COUGH, BODY ACHES, WEAKNESS, NAUSEA FOR 2 DAYS. Nursing Sepsis Screen: No Definite Risk Source of Information: Patient Exam Limitations: No Limitations History of Present Illness Date Seen by Provider: Jan 24, 2020 Time Seen by Provider: 06:48 Initial Comments This 74-year-old woman presents to the emergency room via EMS with 2 to 3 days of productive cough, myalgia, weakness, vomiting, epigastric pain, and joint pain in her right shoulder and right ankle. She has not had much outside exposure but has been around her children. She has had no direct exposures to COVID-19 that she is aware of. She denies any urinary symptoms. She has chronic diarrhea. Vital signs are unremarkable for EMS. She denies chest pain or shortness of breath. Patient denies any trauma contributing to her joint pains. She reports relatively poor intake over the last 48 hours. 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 Allergies and Home Medications Allergies Coded Allergies: No Known Drug Allergies (Verified , 10/21/08) Home Medications Apixaban 2.5 Mg Tablet, 2.5 MG PO BID, (Reported) Atorvastatin Calcium 20 Mg Tablet, 20 MG PO HS, (Reported) Clopidogrel Bisulfate 75 Mg Tablet, 75 MG PO DAILY, (Reported) Gabapentin 100 Mg Capsule, 100 MG PO HS, (Reported) Gabapentin 100 Mg Capsule, 200 MG PO DAILY, (Reported) TAKES 2 (100MG) TABLETS Hydrocodone/Acetaminophen 1 Each Tablet, 1 EA PO TID PRN for PAIN-MODERATE (5- 7), (Reported) Hydroxychloroquine Sulfate 200 Mg Tablet, 400 MG PO DAILY, (Reported) TAKES 2 (200MG) TABS Isosorbide Mononitrate 30 Mg Tab.er.24h, 30 MG PO DAILY, (Reported) Lisinopril 10 Mg Tablet, 10 MG PO DAILY, (Reported) Metoprolol Succinate 100 Mg Tab.er.24h, 100 MG PO DAILY, (Reported) Nitroglycerin 0.3 Mg Tab.subl, 0.3 MG SL PRN PRN for CHEST PAIN (ANGINA), (Reported) Prednisone 10 Mg Tab, 10 MG PO DAILY, (Reported) Vilazodone Hydrochloride 20 Mg Tablet, 20 MG PO DAILY, (Reported) Patient Home Medication List Home Medication List Reviewed: Yes Review of Systems Review of Systems Constitutional: see HPI EENTM: no symptoms reported Respiratory: see HPI Cardiovascular: no symptoms reported Gastrointestinal: see HPI Genitourinary: no symptoms reported : No Musculoskeletal: see HPI Skin: no symptoms reported Psychiatric/Neurological: No Symptoms Reported Hematologic/Lymphatic: No Symptoms Reported Immunological/Allergic: no symptoms reported Past Wuzlbbx-Cjssfd-Bvylbr Hx Past Med/Social Hx: Reviewed and Corrections made Patient Social History Alcohol Use: Denies Use Recreational Drug Use: No Type Used: Cigarettes 2nd Hand Smoke Exposure: Yes Recent Foreign Travel: No Contact w/Someone Who Travel: No Recent Infectious Disease Expo: No Recent Hopitalizations: No Physical Abuse: No Sexual Abuse: No Mistreated: No Fear: No Immunizations Up To Date Tetanus Booster (TDap): Less than 5yrs PED Vaccines UTD: No Date of Pneumonia Vaccine: Feb 21, 2019 Date of Influenza Vaccine: Feb 21, 2019 Seasonal Allergies Seasonal Allergies: No Past Medical History Surgeries: Yes (MODIFIED RADICAL VULVECTOMY 1991/CHOLECYSTECTOMY) Abdominal, Adenoidectomy, Cardiac, Coronary Stent, Gallbladder, Hysterectomy, Oophorectomy, Orthopedic, Tonsillectomy Respiratory: Yes Pneumonia Currently Using CPAP: No Currently Using BIPAP: No Cardiac: Yes (history of aortic thrombus) Coronary Artery Disease, Heart Attack, High Cholesterol, Hypertension Neurological: Yes Neuropathy, Stroke 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 Disorders: Yes (HX OF VULVAR CA--MODIFIED RADICAL VULVECTOMY 1991) 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 Disorders: Denies CIRCUIT RECORDER History: Hysterectomy Sexually Transmitted Disease: No HIV/AIDS: No Genitourinary: Yes (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) Renal Failure Gastrointestinal: Yes Chronic Diarrhea, Gall Bladder Disease Musculoskeletal: Yes Arthritis, Gout Endocrine: Yes Lupus HEENT: No Loss of Vision: Left Hearing Impairment: Denies Cancer: Yes Cervical, Vaginal Did You Recieve Any Treatments: Yes What Type of Treatment Did You: Chemotherapy, Radiation, Surgical Intervention Psychosocial: Yes Anxiety Integumentary: Yes (History of "gangrene" of the toes.) Blood Disorders: No Adverse Reaction/Blood Tranf: No Family Medical History Reviewed Nursing Family Hx Arthritis 19 FATHER 19 MOTHER Cardiovascular disease 19 MOTHER Completed stroke 19 MOTHER maternal grandmother Congenital heart disease 19 MOTHER Diabetes mellitus 19 MOTHER maternal grandmother Hypercholesterolemia 19 MOTHER maternal grandmother Hypertension 19 MOTHER maternal grandmother Myocardial infarction maternal grandmother Tuberculosis paternal great grandfather No Pertinent Family Hx Physical Exam-Suspected Sepsis Physical Exam Vital Signs Vital Signs - First Documented 01/24/20 01/24/20 10:26 11:00 Temp 37.2 Pulse Ox 96 Capillary Refill : Less Than 3 Seconds Blood Pressure Mean: 103 Height, Weight, BMI Height: 5'0.00" Weight: 161lbs. 0oz. 73.088342kn; 24.00 BMI Method:Stated General Appearance: No Apparent Distress, WD/WN HEENT: PERRL/EOMI, Normal ENT Inspection, Other (Oropharynx dry) Neck: Normal Inspection; No JVD Respiratory: Lungs Clear, Normal Breath Sounds, No Accessory Muscle Use, No Res piratory Distress, Other (Slightly increased work of breathing with prolonged expiratory phase) Cardiovascular: Regular Rate, Rhythm, No Edema, No Murmur, Other (Pedal pulses not palpable. Radial pulses palpable. Toes appear dusky with capillary refill around 3 seconds.) Gastrointestinal: Normal Bowel Sounds, Soft; No Distended; Tenderness (Mild in the epigastrium) Extremity: No Pedal Edema, Other (Joint hypertrophy and tenderness around the right ankle. 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 Abnormal labs secondary to volume status. Possible Source: Genitouriary Lactate Level 01/24/20 07:40: Lactic Acid Level 2.09*H 01/24/20 10:55: Lactic Acid Level 1.63 Time of Focused Exam: 09:45 Respiratory: Lungs Clear, Normal Breath Sounds, No Accessory Muscle Use Cardiovascular: Regular Rate, Rhythm, No Edema, No Murmur, Normal Peripheral Pulses (Radial pulses strong, pedal pulses not palpable) Capillary Refill: Less Than 3 Seconds Peripheral Pulses: 0 Dorsalis Pedis (R), 0 Left Dors-Pedis (L); 2+ Radial Pulses (R) Skin: warm/dry Lactic Acid Level Within 3hrs of presentation: Admin fluids, Admin ABX, Blood cultures prior to ABX's, Focus exam, Lactate level Progress/Results/Core Measures Suspected Sepsis Recent Fever Within 48 Hours: No Infection Criteria Present: Suspected New Infection New/Unexplained Altered Menta: No Sepsis Screen: No Definite Risk SIRS Temperature: Pulse: 93 Respiratory Rate: 16 Laboratory Tests 01/24/20 07:40: White Blood Count 13.4H 01/25/20 05:50: White Blood Count 9.6 Blood Pressure 147 /82 Mean: 103 01/24/20 07:40: Lactic Acid Level 2.09*H 01/24/20 10:55: Lactic Acid Level 1.63 Laboratory Tests 01/24/20 07:40: Creatinine 2.59H, INR Comment 1.1, Platelet Count 242, Total Bilirubin 0.8 01/25/20 05:50: Creatinine 2.16H, Platelet Count 172, Total Bilirubin 0.3 Results/Orders Lab Results Laboratory Tests Test 01/24/20 07:25 01/24/20 07:40 01/24/20 08:47 01/24/20 10:55 Range/Units Coronavirus 2019 (APPLE) Negative Negative White Blood Count 13.4 H 4.3-11.0 10^3/uL Red Blood Count 4.54 3.80-5.11 10^6/uL Hemoglobin 12.5 11.5-16.0 g/dL Hematocrit 41 35-52 % Mean Corpuscular Volume 91 80-99 fL Mean Corpuscular Hemoglobin 28 25-34 pg Mean Corpuscular Hemoglobin Concent 30 L 32-36 g/dL Red Cell Distribution Width 15.3 H 10.0-14.5 % Platelet Count 242 130-400 10^3/uL Mean Platelet Volume 11.8 9.0-12.2 fL Immature Granulocyte % (Auto) 0 % Neutrophils (%) (Auto) 78 H 42-75 % Lymphocytes (%) (Auto) 11 L 12-44 % Monocytes (%) (Auto) 9 0-12 % Eosinophils (%) (Auto) 1 0-10 % Basophils (%) (Auto) 0 0-10 % Neutrophils # (Auto) 10.5 H 1.8-7.8 10^3/uL Lymphocytes # (Auto) 1.5 1.0-4.0 10^3/uL Monocytes # (Auto) 1.3 H 0.0-1.0 10^3/uL Eosinophils # (Auto) 0.1 0.0-0.3 10^3/uL Basophils # (Auto) 0.0 0.0-0.1 10^3/uL Immature Granulocyte # (Auto) 0.1 0.0-0.1 10^3/uL Prothrombin Time 14.2 12.2-14.7 SEC INR Comment 1.1 0.8-1.4 Activated Partial Thromboplast Time 24 24-35 SEC Sodium Level 140 135-145 MMOL/L Potassium Level 4.3 3.6-5.0 MMOL/L Chloride Level 110 H 98-107 MMOL/L Carbon Dioxide Level 18 L 21-32 MMOL/L Anion Gap 12 5-14 MMOL/L Blood Urea Nitrogen 34 H 7-18 MG/DL Creatinine 2.59 H 0.60-1.30 MG/DL Estimat Glomerular Filtration Rate 18 BUN/Creatinine Ratio 13 Glucose Level 94 70-105 MG/DL Lactic Acid Level 2.09 *H 1.63 0.50-2.00 MMOL/L Uric Acid 9.6 H 2.6-7.2 MG/DL Calcium Level 9.1 8.5-10.1 MG/DL Corrected Calcium 9.3 8.5-10.1 MG/DL Total Bilirubin 0.8 0.1-1.0 MG/DL Aspartate Amino Transf (AST/SGOT) 14 5-34 U/L Alanine Aminotransferase (ALT/SGPT) 11 0-55 U/L Alkaline Phosphatase 75 40-136 U/L Lactate Dehydrogenase 223 H 125-220 U/L Troponin I 0.045 H 0.030 H <0.028 NG/ML C-Reactive Protein High Sensitivity 2.08 H 0.00-0.50 MG/DL Total Protein 6.8 6.4-8.2 GM/DL Albumin 3.7 3.2-4.5 GM/DL Lipase 24 8-78 U/L Procalcitonin 0.13 H <0.10 NG/ML Urine Color YELLOW Urine Clarity CLEAR Urine pH 5.5 5-9 Urine Specific [place] 1.025 H 1.016-1.022 Urine Protein TRACE H NEGATIVE Urine Glucose (UA) NEGATIVE NEGATIVE Urine Ketones NEGATIVE NEGATIVE Urine Nitrite POSITIVE H NEGATIVE Urine Bilirubin NEGATIVE NEGATIVE Urine Urobilinogen 0.2 < = 1.0 MG/DL Urine Leukocyte Esterase 1+ H NEGATIVE Urine RBC (Auto) NEGATIVE NEGATIVE Urine RBC NONE /HPF Urine WBC 25-50 H /HPF Urine Squamous Epithelial Cells 2-5 /HPF Urine Crystals NONE /LPF Urine Bacteria LARGE H /HPF Urine Casts NONE /LPF Urine Mucus NEGATIVE /LPF Urine Culture Indicated CULTURE PENDING Test 01/25/20 04:32 01/25/20 05:50 Range/Units Troponin I 0.028 <0.028 NG/ML White Blood Count 9.6 4.3-11.0 10^3/uL Red Blood Count 3.37 L 3.80-5.11 10^6/uL Hemoglobin 9.4 #L 11.5-16.0 g/dL Hematocrit 31 L 35-52 % Mean Corpuscular Volume 91 80-99 fL Mean Corpuscular Hemoglobin 28 25-34 pg Mean Corpuscular Hemoglobin Concent 31 L 32-36 g/dL Red Cell Distribution Width 14.7 H 10.0-14.5 % Platelet Count 172 130-400 10^3/uL Mean Platelet Volume 11.5 9.0-12.2 fL Immature Granulocyte % (Auto) 0 % Neutrophils (%) (Auto) 90 H 42-75 % Lymphocytes (%) (Auto) 5 L 12-44 % Monocytes (%) (Auto) 5 0-12 % Eosinophils (%) (Auto) 0 0-10 % Basophils (%) (Auto) 0 0-10 % Neutrophils # (Auto) 8.7 H 1.8-7.8 10^3/uL Lymphocytes # (Auto) 0.5 L 1.0-4.0 10^3/uL Monocytes # (Auto) 0.5 0.0-1.0 10^3/uL Eosinophils # (Auto) 0.0 0.0-0.3 10^3/uL Basophils # (Auto) 0.0 0.0-0.1 10^3/uL Immature Granulocyte # (Auto) 0.0 0.0-0.1 10^3/uL Neutrophils % (Manual) 87 % Lymphocytes % (Manual) 4 % Monocytes % (Manual) 3 % Band Neutrophils 6 % Blood Morphology Comment NORMAL Sodium Level 142 135-145 MMOL/L Potassium Level 4.2 3.6-5.0 MMOL/L Chloride Level 119 H 98-107 MMOL/L Carbon Dioxide Level 14 L 21-32 MMOL/L Anion Gap 9 5-14 MMOL/L Blood Urea Nitrogen 28 H 7-18 MG/DL Creatinine 2.16 H 0.60-1.30 MG/DL Estimat Glomerular Filtration Rate 22 BUN/Creatinine Ratio 13 Glucose Level 107 H 70-105 MG/DL Calcium Level 7.7 L 8.5-10.1 MG/DL Corrected Calcium 8.5 8.5-10.1 MG/DL Total Bilirubin 0.3 0.1-1.0 MG/DL Aspartate Amino Transf (AST/SGOT) 11 5-34 U/L Alanine Aminotransferase (ALT/SGPT) 9 0-55 U/L Alkaline Phosphatase 52 40-136 U/L Total Protein 5.1 L 6.4-8.2 GM/DL Albumin 3.0 L 3.2-4.5 GM/DL Micro Results Microbiology 01/24/20 Urine Culture - Preliminary, Resulted Escherichia coli 01/24/20 Blood Culture - Preliminary, Resulted No growth 01/24/20 Influenza Types A,B Antigen (TEE) - Final, Complete 01/24/20 Blood Culture - Preliminary, Resulted No growth My Orders Orders - HENRY ROSE MD Ondansetron Injection (Zofran Injectio (01/24/20 07:30) Famotidine Injection (Pepcid Injection) (01/24/20 07:30) Ed Iv/Invasive Line Start (01/24/20 07:17) Lactated Ringers (Lr 1000 Ml Iv Solution (01/24/20 07:17) Cbc With Automated Diff (01/24/20 07:17) Comprehensive Metabolic Panel (01/24/20 07:17) Blood Culture (01/24/20 07:17) Sputum Culture (01/24/20 07:17) Urinalysis (01/24/20 07:17) Urine Culture (01/24/20 07:17) Protime With Inr (01/24/20 07:17) Partial Thromboplastin Time (01/24/20 07:17) Chest 1 View, Ap/Pa Only (01/24/20 07:17) Ed Iv/Invasive Line Start (01/24/20 07:17) Ed Iv/Invasive Line Start (01/24/20 07:17) Vital Signs Adult Sepsis Patie Q15M (01/24/20 07:17) O2 (01/24/20 07:17) Remove Rings In Anticipation O (01/24/20 07:17) Lactic Acid Analyzer (01/24/20 07:17) Influenza A And B Antigens (01/24/20 07:17) Uric Acid (01/24/20 07:17) Lipase (01/24/20 07:17) Procalcitonin (Pct) (01/24/20 07:17) Hs C Reactive Protein (01/24/20 07:17) LDH (01/24/20 07:17) Covid 19 Inhouse Test (01/24/20 07:17) Ekg Tracing (01/24/20 07:31) Troponin I (01/24/20 07:31) Troponin I (01/24/20 09:40) Ceftriaxone For Iv Use (Rocephin For I (01/24/20 09:15) Apixaban Tablet (Eliquis Tablet) (01/24/20 10:30) Medications Given in ED Vital Signs/I&O 01/25/20 01/25/20 01/25/20 01/25/20 12:00 12:45 16:28 19:00 Temp 36.4 36.6 Pulse 55 73 61 66 Resp 20 18 B/P (MAP) 138/62 (87) 136/60 (85) Pulse Ox 97 98 O2 Delivery Room Air Room Air 01/25/20 20:21 Temp 36.8 Pulse 62 Resp 22 B/P (MAP) 124/59 (80) Pulse Ox 97 O2 Delivery Room Air Capillary Refill : Less Than 3 Seconds Blood Pressure Mean: 103 Progress Note #1: Time: 07:39 Progress Note Patient was seen and examined. Septic work-up is being pursued including influenza and rapid Covid screens. A liter of IV fluid is being infused. GI symptoms are being treated with Pepcid and Zofran. Due to patient's cardiac history and EKG and troponin are also being obtained. Vital signs are stable at this time. Patient reports a history of gout and thinks that her shoulder and ankle pain may be gout related. Uric acid has been ordered to investigate further. Progress Note #2: Time: 09:36 Progress Note Patient was found to have acute kidney injury and urinary tract infection. Lactic acid was slightly elevated which is thought to be from dehydration. She has very poor vascular access. She will likely need a PICC or midline placed. Rocephin is being started in the ER for initial treatment. Troponin was elevated and Dr. Solitario was consulted. Patient takes aspirin and Eliquis. She did not take her Eliquis this morning so we will give her Eliquis 2.5 mg in the ER. ECG Initial ECG Impression Date: Jan 24, 2020 Initial ECG Impression Time: 07:46 Initial ECG Rate: 97 Initial ECG Rhythm: Normal Sinus Comment Sinus rhythm with PVCs and some artifact. LVH with secondary repolarization. No ischemic ST elevation or depression appreciated. Diagnostic Imaging Diagonstic Imaging: Xray Plain Films/CT/US/NM/MRI: chest Comments NAME: EUGENIO PARKER [facility] REC#: [id number] PT STATUS: REG ER : 1945 PHYSICIAN: HENRY ROSE MD ADMIT DATE: 01/24/20/ER Signed Date of Exam:01/24/20 CHEST 1 VIEW, AP/PA ONLY EXAMINATION: Chest radiograph, portable AP view. DATE: 01/24/2020 8:21 AM hours. INDICATION: 74-year-old female, sepsis. COMPARISON: June 05, 2019. FINDINGS: Stable overall appearance of the cardiomediastinal silhouette. There is no identified pneumothorax. There is no large pleural effusion. There is no identified focal airspace consolidation. There are bilateral glenohumeral arthritic changes. There are probable bilateral carotid vascular calcifications. IMPRESSION: No identified acute cardiopulmonary abnormality. Dictated by: Dictated on workstation # [id number] Dict: 01/24/20821 Trans: 01/24/20830 [facility] [id number] Interpreted by: ROSEMARIE ADAM MD Electronically signed by: ROSEMARIE ADAM MD 01/24/2031 Departure Communication (Admissions) Time/Spoke to Admitting Phy: 09:20 Dr. Mosquera Time/Spoke to Consulting Phy: 09:25 Dr. Solitario Impression Primary Impression: UTI (urinary tract infection) Qualified Codes: N39.0 - Urinary tract infection, site not specified Additional Impressions: Acute kidney injury Vomiting Qualified Codes: R11.10 - Vomiting, unspecified Elevated troponin Acute gouty arthritis Disposition: ADMITTED INPATIENT Condition: Improved Admissions Decision to Admit Reason: Admit from ER (General) Decision to Admit/Date: Jan 24, 2020 Time/Decision to Admit Time: 09:10 Departure-Patient Inst. Referrals: [facility] [place] Primary Care Physician CHRISTA GLORIA (Family) Primary Care Physician HENRY ROSE MD Jan 24, 2020 07:11
[2020-01-24] MEDS ORDERED: LACTATED RINGERS 1,000 ML IV ONE (07:17)
[2020-01-24] MEDS ORDERED: FAMOTIDINE 20MG/2ML IV (PEPCID) IVP ONE (07:30)
[2020-01-24] MEDS ORDERED: ONDANSETRON 4 MG/2 ML (SDV) Z0FRAN IVP ONE (07:30)
[2020-01-24 07:48] LABS: BASOPHILS % (AUTO) 0 % (0-10); EOSINOPHILS # (AUTO) 0.1 10^3/uL (0.0-0.3); EOSINOPHILS % (AUTO) 1 % (0-10); HEMATOCRIT 41 % (35-52); HEMOGLOBIN 12.5 g/dL (11.5-16.0); LYMPHOCYTES # (AUTO) 1.5 10^3/uL (1.0-4.0); LYMPHOCYTES % (AUTO) 11 % (12-44); MEAN CORPUSCULAR HEMOGLOBIN 28 pg (25-34); MEAN CORPUSCULAR HGB CONC 30 g/dL (32-36); MEAN CORPUSCULAR VOLUME 91 fL (80-99); MEAN PLATELET VOLUME 11.8 fL (9.0-12.2); MONOCYTES # (AUTO) 1.3 10^3/uL (0.0-1.0); MONOCYTES % (AUTO) 9 % (0-12); NEUTROPHILS # (AUTO) 10.5 10^3/uL (1.8-7.8); NEUTROPHILS % (AUTO) 78 % (42-75); PLATELET COUNT 242 10^3/uL (130-400); WHITE BLOOD COUNT 13.4 10^3/uL (4.3-11.0)
[2020-01-24 07:59] LABS: ALBUMIN 3.7 GM/DL (3.2-4.5); POTASSIUM 4.3 MMOL/L (3.6-5.0)
[2020-01-24 08:01] LABS: CALCIUM 9.1 MG/DL (8.5-10.1)
[2020-01-24 08:02] LABS: TOTAL PROTEIN 6.8 GM/DL (6.4-8.2)
[2020-01-24 08:04] LABS: BILIRUBIN,TOTAL 0.8 MG/DL (0.1-1.0)
[2020-01-24 08:06] LABS: CREATININE SERUM 2.59 MG/DL (0.60-1.30)
[2020-01-24 08:09] LABS: URIC ACID 9.6 MG/DL (2.6-7.2)
[2020-01-24 08:12] LABS: INR 1.1 (0.8-1.4); PROTHROMBIN TIME PATIENT 14.2 SEC (12.2-14.7)
--- NOTE | 2020-01-24 08:19 | NUR ---
SON UPDATED ON PTS CONDITION.
--- NOTE | 2020-01-24 08:30 | Diagnostic Imaging Report ---
EXAMINATION: Chest radiograph, portable AP view. DATE: 01/24/2020 8:21 AM hours. INDICATION: 74-year-old female, sepsis. COMPARISON: June 05, 2019. FINDINGS: Stable overall appearance of the cardiomediastinal silhouette. There is no identified pneumothorax. There is no large pleural effusion. There is no identified focal airspace consolidation. There are bilateral glenohumeral arthritic changes. There are probable bilateral carotid vascular calcifications. IMPRESSION: No identified acute cardiopulmonary abnormality. Dictated by: Dictated on workstation # [id number]
--- NOTE | 2020-01-24 08:43 | NUR ---
TALKED WITH PT'S OTHER SON ON THE PHONE WHO LIVES IN [facility]. HE WANTS TO BE THE [employer]PER[employer] HELPER AND WILL NOTIFY HIS BROTHER EULALIA.
[2020-01-24 08:53] LABS: BILIRUBIN,URINE NEGATIVE (NEGATIVE); CLARITY,URINE CLEAR; COLOR,URINE YELLOW; GLUCOSE, URINE (UA) NEGATIVE (NEGATIVE); KETONES,URINE NEGATIVE (NEGATIVE); LEUKOCYTE ESTERASE ,URINE 1+ (NEGATIVE); NITRITE,URINE POSITIVE (NEGATIVE); PH,URINE 5.5 (5-9); PROTEIN,URINE TRACE (NEGATIVE)
--- NOTE | 2020-01-24 09:00 | NUR ---
RESTING IN BED. DENIES NEEDS AT THIS TIME.
[2020-01-24 09:05] LABS: BACTERIA,URINE LARGE /HPF; WBC,URINE 25-50 /HPF
[2020-01-24] MEDS ORDERED: cefTRIAXone FOR IV USE 1,000 MG in WATER (STERILE) FOR INJECTION 10 ML IV ONE (09:15)
--- NOTE | 2020-01-24 09:16 | NUR ---
PT'S SON UPDATED ON ADMIT.
--- NOTE | 2020-01-24 10:21 | NUR ---
small skin tear noticed on left wrist when taped removed. tripple antibiotic and baindaid applied.
--- NOTE | 2020-01-24 10:24 | NUR ---
DR DEL REAL HERE TO SEE THE PT.
[2020-01-24] MEDS ORDERED: APIXABAN 2.5 MG (ELIQUIS) TABLET PO ONE (10:30)
--- NOTE | 2020-01-24 10:40 | NUR ---
PATIENT TO FLOOR AT 1035 VIA W/C BY THIS RN.
[2020-01-24] MEDS ORDERED: fentaNYL INJECTION 100 MCG/2 ML AMP IV PRN (11:00)
[2020-01-24] MEDS ORDERED: CATHETER FLUSH 10 ML SYR IV PRN (11:00)
[2020-01-24] MEDS ORDERED: ONDANSETRON 4 MG/2 ML (SDV) Z0FRAN IV PRN (11:00)
[2020-01-24] MEDS ORDERED: NS IV 1000 ML 1,000 ML IV ONE (11:00)
[2020-01-24] MEDS ORDERED: FLU QUAD HIGH DOSE 240 MCG/0.7 ML 2020-21 (FLUZONE) IM ONE (11:15)
[2020-01-24] MEDS ORDERED: methylPREDNISolone 40 MG/ML (Solu-MEDROL) VIAL IV ONE (11:15)
--- NOTE | 2020-01-24 11:52 | History & Physical-Hospitalist ---
KASIA SALAZAR MED STUDENT 01/24/20 1152: History of Present Illness HPI/Chief Complaint This patient presents to the ED today with a CC of cough, vomiting, and weakness. She states that she has vomited three times last night and once today. She has not had an appetite or eaten for the last 3 days. She denies subjective fever. She has not taken any other medications except for her regular prescribed ones. She denies chest pain and problems breathing. She does not have any pain except for gout pain in her right arm and foot. She has no problems using the bathroom. Her last bowel movement was 3 days ago and diarrhea. Source: patient Exam Limitations: no limitations Date Seen 01/24/20 Time Seen by a Provider: 11:45 Attending Physician Slime Del Real DO [facility]Pending [facility] To [facility] Referring Physician Date of Admission Jan 24, 2020 at 09:52 Home Medications & Allergies Home Medications Reviewed patient Home Medication Reconciliation performed by pharmacy medication reconciliations oven technician and/or nursing. Patients Allergies have been reviewed. Allergies Allergies Coded Allergies No Known Drug Allergies (Verified10/21/08) Past Ylmaqtc-Rfgkzj-Yqnsho Hx Past Med/Social Hx: Reviewed and Corrections made Patient Social History Alcohol Use: Denies Use Recreational Drug Use: No Type Used: Cigarettes 2nd Hand Smoke Exposure: Yes Recent Foreign Travel: No Contact w/other who traveled: No Recent Hopitalizations: No Recent Infectious Disease Expo: No Immunizations Up To Date Tetanus Booster (TDap): Less than 5yrs Pediatric: No Date of Pneumonia Vaccine: Feb 21, 2019 Date of Influenza Vaccine: Feb 21, 2019 Seasonal Allergies Seasonal Allergies: No Past Medical History Surgeries: Abdominal, Adenoidectomy, Cardiac, Coronary Stent, Gallbladder, Hysterectomy, Oophorectomy, Orthopedic, Tonsillectomy Currently Using CPAP: No Currently Using BIPAP: No Cardiac: Coronary Artery Disease, Heart Attack, High Cholesterol, Hypertension Neurological: Neuropathy, Stroke 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: Yes (HX OF VULVAR CA--MODIFIED RADICAL VULVECTOMY 1991) Sexually Transmitted Disease: No HIV/AIDS: No 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 Disorders: Denies Hysterectomy Genitourinary: Renal Failure Gastrointestinal: Chronic Diarrhea, Gall Bladder Disease Musculoskeletal: Arthritis, Gout Endocrine: Lupus Loss of Vision: Left Hearing Impairment: Denies Cancer: Cervical, Vaginal Did You Recieve Any Treatments: Yes What Type of Treatment Did You: Chemotherapy, Radiation, Surgical Intervention Psychosocial: Anxiety History of Blood Disorders: No Adverse Reaction to Blood [place]: No Family History Reviewed Nursing Family Hx Arthritis 19 FATHER 19 MOTHER Cardiovascular disease 19 MOTHER Completed stroke 19 MOTHER maternal grandmother Congenital heart disease 19 MOTHER Diabetes mellitus 19 MOTHER maternal grandmother Hypercholesterolemia 19 MOTHER maternal grandmother Hypertension 19 MOTHER maternal grandmother Myocardial infarction maternal grandmother Tuberculosis paternal great grandfather No Pertinent Family Hx Review of Systems Constitutional: see HPI EENTM: no symptoms reported Respiratory: no symptoms reported Cardiovascular: no symptoms reported Gastrointestinal: diarrhea, other (Last bowel movement 3 days ago.) Genitourinary: no symptoms reported : No Musculoskeletal: gout (Pt complains of gout pain in R arm and foot.) Skin: no symptoms reported Psychiatric/Neurological: No Symptoms Reported Physical Exam Physical Exam Vital Signs Vital Signs - First Documented 01/24/20 01/24/20 10:26 11:00 Temp 37.2 Pulse Ox 96 Capillary Refill : Less Than 3 Seconds Height, Weight, BMI Height: 5'0.00" Weight: 161lbs. 0oz. [id number]; 26.65 BMI Method:Stated General Appearance: No Apparent Distress HEENT: PERRL/EOMI Neck: Full Range of Motion, Non Tender Respiratory: Chest Non Tender, Lungs Clear, Normal Breath Sounds, No Accessory Muscle Use, No Respiratory Distress Cardiovascular: Regular Rate, Rhythm, No Edema, No JVD, No Murmur, Normal Peripheral Pulses Gastrointestinal: Normal Bowel Sounds, No Organomegaly, No Pulsatile Mass, Non Tender, Soft Extremity: Normal Range of Motion Neurologic/Psychiatric: Alert, Oriented x3 Skin: Normal Color, Warm/Dry Results Results/Procedures Labs Laboratory Tests 01/24/20 07:40 Patient resulted labs reviewed. Assessment/Plan Admission Diagnosis Suspectied Sepsis Admission Status: Inpatient Order (span 2 midnights) Reason for Inpatient Admission: Suspected sepsis, elevated Lactic acid and troponin Assessment and Plan Continue to monitor patient for signs of sepsis/shock If cultures return postitive, start appropriate abx CBC and CMP daily labs Get patient to eat Continue to monitor lactate and troponin Diagnosis/Problems Diagnosis/Problems (1) CAD (coronary artery disease) (2) Acute gouty arthritis Status: Acute (3) Vomiting Status: Acute Qualifiers: Vomiting type: unspecified Vomiting Intractability: non-intractable Nausea presence: unspecified Qualified Codes: R11.10 - Vomiting, unspecified (4) Elevated troponin Status: Acute (5) Acute kidney injury Status: Acute (6) Hyperlipidemia Status: Chronic (7) Thrombosis, renal vein Status: Chronic (8) Hypertension Status: Chronic (9) Lupus (systemic lupus erythematosus) Status: Chronic (10) DVT prophylaxis Status: Acute (11) Anticoagulated on Coumadin Status: Chronic (12) UTI (urinary tract infection) Status: Acute Qualifiers: Urinary tract infection type: site unspecified Hematuria presence: without hematuria Qualified Codes: N39.0 - Urinary tract infection, site not specified Clinical Quality Measures DVT/VTE Risk/Contraindication: Risk Factor Score Per Nursin RFS Level Per Nursing on Admit: 4+=Very High Supervisory-Addendum Brief Verification & Attestation Participated in pt care: history, physical Personally performed: exam, history Care discussed with: other Procedures: n/a n/a SLIME DEL REAL DO 01/24/20 1308: History of Present Illness HPI/Chief Complaint CC: Weakness and fever HPI: This is a [facility] patient known to me from previous hospital stays who presented with acute kidney injury from dehydration from nausea and vomiting and was found to have a UTI, Rocephin given, IV fluids initiated and Dr. Solitario consulted for elevated Troponin. Pt feels pretty good other than gout pain so I did give her one dose of Solumedrol 40 mg to help with that. Will monitor Pt closely due to complex medical issues. Source: patient, RN/MD Exam Limitations: no limitations Date Seen 01/24/20 Time Seen by a Provider: 10:00 Past Uearynw-Pdteay-Ahwook Hx Past Med/Social Hx: Reviewed Nursing Past Med/Soc Hx, Reviewed and Corrections made Patient Social History Marrital Status: single Employed/Student: unemployed, retired Alcohol Use: Denies Use Smoking Status: Never a Smoker Past Medical History Cardiac: Coronary Artery Disease, High Cholesterol, Hypertension Musculoskeletal: Arthritis, Fibromyalgia Family History Arthritis 19 FATHER 19 MOTHER Cardiovascular disease 19 MOTHER Completed stroke 19 MOTHER maternal grandmother Congenital heart disease 19 MOTHER Diabetes mellitus 19 MOTHER maternal grandmother Hypercholesterolemia 19 MOTHER maternal grandmother Hypertension 19 MOTHER maternal grandmother Myocardial infarction maternal grandmother Tuberculosis paternal great grandfather Review of Systems Constitutional: see HPI, malaise, weakness Physical Exam Physical Exam General Appearance: No Apparent Distress, Chronically ill Eyes: Right Eye Normal Inspection, Right Eye PERRL HEENT: PERRL/EOMI, TMs Normal, Normal ENT Inspection, Pharynx Normal, Moist Mucous Membranes Neck: Full Range of Motion, Normal Inspection, Non Tender Respiratory: Chest Non Tender, Lungs Clear, Normal Breath Sounds, No Accessory Muscle Use, No Respiratory Distress Cardiovascular: Regular Rate, Rhythm, No Edema, No Gallop, No JVD, No Murmur, Normal Peripheral Pulses Gastrointestinal: Normal Bowel Sounds, No Organomegaly, No Pulsatile Mass, Non Tender, Soft Back: Normal Inspection, No CVA Tenderness, No Vertebral Tenderness Extremity: Normal Capillary Refill, Normal Inspection, Normal Range of Motion, Non Tender, No Calf Tenderness, No Pedal Edema Neurologic/Psychiatric: Alert, Oriented x3, No Motor/Sensory Deficits, Normal Mood/Affect Skin: Normal Color, Warm/Dry Lymphatic: No Adenopathy Assessment/Plan Admission Diagnosis Assessment: UTI Sepsis Elevated Troponin Acute kidney injury Plan: IV fluids IV antibiotics Cardiology consultation Admission Status: Inpatient Order (span 2 midnights) Reason for Inpatient Admission: sepsis from uti Supervisory-Addendum Brief Verification & Attestation Participated in pt care: history, MDM, physical Personally performed: exam, history, MDM, supervision of care Care discussed with: Medical Student Procedures: n/a Results interpretation: Verified all documentation Verification and Attestation of Medical Student E/M Service A medical student performed and documented this service in my presence. I reviewed and verified all information documented by the medical student and made modifications to such information, when appropriate. I personally performed the physical exam and medical decision making. Slime Del Real, Jan 25, 2020,05:32 KASIA SALAZAR MED STUDENT Jan 24, 2020 11:52 SLIME DEL REAL DO Jan 24, 2020 13:08
[2020-01-24] MEDS ORDERED: ENOXAPARIN 30 MG/0.3 ML (LOVENOX) SYR SC SCH (12:00)
--- NOTE | 2020-01-24 12:12 | Consultation-Cardiology ---
HPI-Cardiology Cardiology Consultation Date of Consultation 01/24/20 Date of Admission Time Seen by Provider: 11:45 Indication: coronary artery disease HPI 74 years old lady with history of coronary artery disease, hypertension, started to have nausea and vomiting generalized weakness and polyuria. Admitted through the emergency room for urinary tract infection. She denied any chest pain or palpitation, noted to have mild elevation in troponin. Home Medications & Allergies Allergies: Coded Allergies: No Known Drug Allergies (Verified , 10/21/08) Home Medication List Reviewed: Yes BTN-Zealtn-Jptyms Hx Patient Social History Marital Status: Alcohol Use: Denies Use Recreational Drug Use: No Type Used: Cigarettes 2nd Hand Smoke Exposure: Yes Recent Foreign Travel: No Recent Infectious Disease Expo: No Recent Hopitalizations: No Immunizations Up To Date Tetanus Booster (TDap): Less than 5yrs Date of Pneumonia Vaccine: Feb 21, 2019 Date of Influenza Vaccine: Feb 21, 2019 Past Medical History Discussed below Family Medical History Significant Family History: No Pertinent Family Hx Family History: Arthritis 19 FATHER 19 MOTHER Cardiovascular disease 19 MOTHER Completed stroke 19 MOTHER maternal grandmother Congenital heart disease 19 MOTHER Diabetes mellitus 19 MOTHER maternal grandmother Hypercholesterolemia 19 MOTHER maternal grandmother Hypertension 19 MOTHER maternal grandmother Myocardial infarction maternal grandmother Tuberculosis paternal great grandfather Review of Systems-General Review of Systems Constitutional: see HPI EENTM: see HPI, no symptoms reported Respiratory: no symptoms reported, see HPI Cardiovascular: no symptoms reported, see HPI Gastrointestinal: diarrhea, other (Last bowel movement 3 days ago.) Genitourinary: no symptoms reported, see HPI : No Musculoskeletal: see HPI, gout (Pt complains of gout pain in R arm and foot.) Skin: no symptoms reported, see HPI Psychiatric/Neurological: No Symptoms Reported Reviewed Test Results Reviewed Test Results Lab Laboratory Tests Test 01/24/20 07:25 01/24/20 07:40 01/24/20 08:47 01/24/20 10:55 Range/Units Coronavirus 2019 (APPLE) Negative Negative White Blood Count 13.4 H 4.3-11.0 10^3/uL Red Blood Count 4.54 3.80-5.11 10^6/uL Hemoglobin 12.5 11.5-16.0 g/dL Hematocrit 41 35-52 % Mean Corpuscular Volume 91 80-99 fL Mean Corpuscular Hemoglobin 28 25-34 pg Mean Corpuscular Hemoglobin Concent 30 L 32-36 g/dL Red Cell Distribution Width 15.3 H 10.0-14.5 % Platelet Count 242 130-400 10^3/uL Mean Platelet Volume 11.8 9.0-12.2 fL Immature Granulocyte % (Auto) 0 % Neutrophils (%) (Auto) 78 H 42-75 % Lymphocytes (%) (Auto) 11 L 12-44 % Monocytes (%) (Auto) 9 0-12 % Eosinophils (%) (Auto) 1 0-10 % Basophils (%) (Auto) 0 0-10 % Neutrophils # (Auto) 10.5 H 1.8-7.8 10^3/uL Lymphocytes # (Auto) 1.5 1.0-4.0 10^3/uL Monocytes # (Auto) 1.3 H 0.0-1.0 10^3/uL Eosinophils # (Auto) 0.1 0.0-0.3 10^3/uL Basophils # (Auto) 0.0 0.0-0.1 10^3/uL Immature Granulocyte # (Auto) 0.1 0.0-0.1 10^3/uL Prothrombin Time 14.2 12.2-14.7 SEC INR Comment 1.1 0.8-1.4 Activated Partial Thromboplast Time 24 24-35 SEC Sodium Level 140 135-145 MMOL/L Potassium Level 4.3 3.6-5.0 MMOL/L Chloride Level 110 H 98-107 MMOL/L Carbon Dioxide Level 18 L 21-32 MMOL/L Anion Gap 12 5-14 MMOL/L Blood Urea Nitrogen 34 H 7-18 MG/DL Creatinine 2.59 H 0.60-1.30 MG/DL Estimat Glomerular Filtration Rate 18 BUN/Creatinine Ratio 13 Glucose Level 94 70-105 MG/DL Lactic Acid Level 2.09 *H 1.63 0.50-2.00 MMOL/L Uric Acid 9.6 H 2.6-7.2 MG/DL Calcium Level 9.1 8.5-10.1 MG/DL Corrected Calcium 9.3 8.5-10.1 MG/DL Total Bilirubin 0.8 0.1-1.0 MG/DL Aspartate Amino Transf (AST/SGOT) 14 5-34 U/L Alanine Aminotransferase (ALT/SGPT) 11 0-55 U/L Alkaline Phosphatase 75 40-136 U/L Lactate Dehydrogenase 223 H 125-220 U/L Troponin I 0.045 H 0.030 H <0.028 NG/ML C-Reactive Protein High Sensitivity 2.08 H 0.00-0.50 MG/DL Total Protein 6.8 6.4-8.2 GM/DL Albumin 3.7 3.2-4.5 GM/DL Lipase 24 8-78 U/L Procalcitonin 0.13 H <0.10 NG/ML Urine Color YELLOW Urine Clarity CLEAR Urine pH 5.5 5-9 Urine Specific [place] 1.025 H 1.016-1.022 Urine Protein TRACE H NEGATIVE Urine Glucose (UA) NEGATIVE NEGATIVE Urine Ketones NEGATIVE NEGATIVE Urine Nitrite POSITIVE H NEGATIVE Urine Bilirubin NEGATIVE NEGATIVE Urine Urobilinogen 0.2 < = 1.0 MG/DL Urine Leukocyte Esterase 1+ H NEGATIVE Urine RBC (Auto) NEGATIVE NEGATIVE Urine RBC NONE /HPF Urine WBC 25-50 H /HPF Urine Squamous Epithelial Cells 2-5 /HPF Urine Crystals NONE /LPF Urine Bacteria LARGE H /HPF Urine Casts NONE /LPF Urine Mucus NEGATIVE /LPF Urine Culture Indicated CULTURE PENDING Physical Exam Physical Exam Vital Signs Vital Signs - First Documented 01/24/20 01/24/20 10:26 11:00 Temp 37.2 Pulse Ox 96 Capillary Refill : Less Than 3 Seconds Height, Weight, BMI Height: 5'0.00" Weight: 161lbs. 0oz. [id number]; 26.65 BMI Method:Stated General Appearance: No Apparent Distress HEENT: PERRL/EOMI Neck: Full Range of Motion, Non Tender Respiratory: Chest Non Tender, Lungs Clear, Normal Breath Sounds, No Accessory Muscle Use, No Respiratory Distress Cardiovascular: Regular Rate, Rhythm, No Edema, No JVD, No Murmur, Normal Peripheral Pulses Gastrointestinal: Normal Bowel Sounds, No Organomegaly, No Pulsatile Mass, Non Tender, Soft Extremity: Normal Range of Motion Neurologic/Psychiatric: Alert, Oriented x3 Skin: Normal Color, Warm/Dry A/P-Cardiology Admission Diagnosis Urinary tract infection Coronary artery disease Non-ST elevation myocardial infarction Hypertension Assessment/Plan Urinary tract infection, admitted and started on antibiotic managed by primary care physician Acute on chronic renal failure, history of chronic kidney disease stage IV, continue to monitor renal function Mild elevation in troponin, known to have coronary artery disease, medical therapy is recommended no intervention is needed Coronary artery disease, had a cardiac catheterization done by Dr. Olvera in September 2019 with stenting of the circumflex artery using resolute 2.25 x 14 mm, patient had 90 percent stenosis in the posterior lateral branch of the right cor onary artery that was treated medically. Hypertension, restart home medication monitor blood pressure CVA with L homonymous hemianopsia - small to moderate-sized area of acute/subacute infarct involving the right occipital lobe. There is no evidence of intra-cranial hemorrhage, brain herniation, or midline shift on CT of the head on 07-15-18. Management of CVA is by her pcp Carotid artery disease - carotid u/s of 07-15-18, there is mod bilat carotid arterial plaque, worse (50-70% stenosis) on the right Ischemic cardiomyopathy. Echo of May 05, 2019: LVEF 50-55%, mild MR. RVSP 20 mmHg, no signs of heart failure Intolerant to warfarin due to wide variations in INR. Currently on apixaban H/O cervical cancer for which she has undergone chemo (last tx 12 years ago) H/O sleep apnea, non-compliant with CPAP tx HLD - statin tx followed by her PCP H/O sinus bradycardia and V-tach during ED visit in November 2017 - transferred to [facility] at that time Chronic diarrhea Reports chronic lymphedema to right leg Depression H/o lupus and gout (details unknown) followed and treated by pcp Family h/o CAD (son has had coronary stenting; mother has had CVA) Clinical Quality Measures DVT/VTE Risk/Contraindication: Risk Factor Score Per Nursin RFS Level Per Nursing on Admit: 4+=Very High NOEMÍ CARVALHO MD Jan 24, 2020 12:12
[2020-01-24] MEDS: ASPIRIN E.C. 81 MG (ECOTRIN) TAB PO SCH (12:19)
[2020-01-24] MEDS: CLOPIDOGREL 75 MG (PLAVIX) TABLET PO SCH (12:20)
[2020-01-24] MEDS: NS IV 1000 ML 1,000 ML IV SCH ×2 (12:24→17:30)
[2020-01-24] MEDS ORDERED: GABA-486 PO ×2 (14:22)
[2020-01-24] MEDS ORDERED: APIX2.5T PO (14:22)
[2020-01-24] MEDS ORDERED: NITR0.3T7 SL (14:22)
[2020-01-24] MEDS ORDERED: CLOP75TA28 PO (14:22)
[2020-01-24] MEDS ORDERED: LISI10TA2 PO (14:22)
[2020-01-24] MEDS ORDERED: MTP100TCR PO (14:22)
--- NOTE | 2020-01-24 14:23 | NUR ---
I SPOKE WITH THE PATIENT ONE THE PHONE AND WENT THROUGH THE EXTERNAL MED HISTORY TO COMPLETE THUIS MED REC. DIRECTIONS FOR HYDROXYCHLOROQUINE ARE BID BUT PATIENT TAKES 2 DAILY. PATIENT STATES THAT THEY AREN'T TAKING ANY OTC MEDS AT THIS TIME.
[2020-01-25] MEDS: NS IV 1000 ML 1,000 ML IV SCH ×3 (01:14→16:44)
[2020-01-25 03:33] VITALS: BP 142/78
[2020-01-25] MEDS ORDERED: NITROGLYCERIN 0.4 MG SL TABS BTL 25'S SL PRN (05:30)
[2020-01-25 06:04] LABS: BASOPHILS % (AUTO) 0 % (0-10); EOSINOPHILS % (AUTO) 0 % (0-10); HEMATOCRIT 31 % (35-52); HEMOGLOBIN 9.4 g/dL (11.5-16.0); LYMPHOCYTES # (AUTO) 0.5 10^3/uL (1.0-4.0); LYMPHOCYTES % (AUTO) 5 % (12-44); MEAN CORPUSCULAR HEMOGLOBIN 28 pg (25-34); MEAN CORPUSCULAR HGB CONC 31 g/dL (32-36); MEAN CORPUSCULAR VOLUME 91 fL (80-99); MEAN PLATELET VOLUME 11.5 fL (9.0-12.2); MONOCYTES # (AUTO) 0.5 10^3/uL (0.0-1.0); MONOCYTES % (AUTO) 5 % (0-12); NEUTROPHILS # (AUTO) 8.7 10^3/uL (1.8-7.8); NEUTROPHILS % (AUTO) 90 % (42-75); PLATELET COUNT 172 10^3/uL (130-400); WHITE BLOOD COUNT 9.6 10^3/uL (4.3-11.0)
[2020-01-25 06:16] LABS: POTASSIUM 4.2 MMOL/L (3.6-5.0)
[2020-01-25 06:17] LABS: CALCIUM 7.7 MG/DL (8.5-10.1)
[2020-01-25 06:18] LABS: TOTAL PROTEIN 5.1 GM/DL (6.4-8.2)
[2020-01-25 06:20] LABS: BILIRUBIN,TOTAL 0.3 MG/DL (0.1-1.0)
[2020-01-25 06:22] LABS: CREATININE SERUM 2.16 MG/DL (0.60-1.30)
[2020-01-25 06:34] LABS: BAND NEUTROPHILS 6 %; LYMPHOCYTES % (MANUAL) 4 %; MONOCYTES % (MANUAL) 3 %; NEUTROPHILS % (MANUAL) 87 %; RBC MORPH NORMAL
--- NOTE | 2020-01-25 07:59 | Cardiology Progress Note ---
Subjective Date Seen by Provider: Jan 25, 2020 Time Seen by Provider: 07:57 Subjective/Events-last exam Patient is laying down in bed, feeling slightly better, complaining of mild cough Review of Systems General: No Chills, No Night Sweats; Fatigue; No Malaise, No Appetite, No Other HEENT: No Head Aches, No Visual Changes, No Eye Pain, No Ear Pain, No Dysphasia, No Sinus Congestion, No Post Nasal Drip, No Sore Throat, No Other Pulmonary: No Dyspnea; Cough; No Pleuritic Chest Pain, No Other Cardiovascular: No: Chest Pain, Palpitations, Orthopnea, Paroxysmal Noc. Dyspnea, Edema, Lt Headedness, Other Focused Exam Lactate Level 01/24/20 07:40: Lactic Acid Level 2.09*H 01/24/20 10:55: Lactic Acid Level 1.63 Time of Focused Exam: 09:45 Objective-Cardiology Exam Last Set of Vital Signs Vital Signs 01/25/20 03:33 Temp 36.3 Pulse 70 Resp 16 B/P (MAP) 142/78 (99) Pulse Ox 98 O2 Delivery Room Air Capillary Refill : Less Than 3 Seconds I&O Intake and Output 01/25/20 00:00 Intake Total 3590 ml Balance 3590 ml Intake Oral 980 ml IV Total 2610 ml # Voids 4 # Bowel Movements 3 Daily Weight Change No No General: Alert, Oriented X3, Cooperative HEENT: Atraumatic, PERRLA Neck: Supple, No JVD, No Thyromegaly Lungs: Clear to Auscultation, Normal Air Movement Heart: Regular Rate, Normal S1, Normal S2, No Murmurs Abdomen: Normal Bowel Sounds, Soft, No Tenderness, No Hepatosplenomegaly, No Masses Extremities: No Clubbing, No Cyanosis, No Edema, No Tenderness/Swelling, Other (diminished pedal pulse) Skin: No Rashes, No Significant Lesion, Other (ulcer on her toe) Neuro: Normal Gait, Normal Speech, Strength at 5/5 X4 Ext, Normal Tone, Sensation Intact Psych/Mental Status: Mental Status NL, Mood NL Results Lab Laboratory Tests 01/25/20 05:50 A/P-Cardiology Admission Diagnosis Urinary tract infection Coronary artery disease Non-ST elevation myocardial infarction Hypertension Assessment/Plan Urinary tract infection, admitted and started on antibiotic managed by primary care physician Acute on chronic renal failure, history of chronic kidney disease stage IV, continue to monitor renal function Mild elevation in troponin, known to have coronary artery disease, medical therapy is recommended no intervention is needed Coronary artery disease, had a cardiac catheterization done by Dr. Olvera in September 2019 with stenting of the circumflex artery using resolute 2.25 x 14 mm, patient had 90 percent stenosis in the posterior lateral branch of the right coronary artery that was treated medically. Ischemic foot ulcer on her third toe, peripheral arterial disease, diminished pedal pulse. I will evaluate ADAMS Hypertension, better controlled. Continue to monitor blood pressure CVA with L homonymous hemianopsia - small to moderate-sized area of acute/suba cute infarct involving the right occipital lobe. There is no evidence of intra- cranial hemorrhage, brain herniation, or midline shift on CT of the head on 07-15-18. Management of CVA is by her pcp Carotid artery disease - carotid u/s of 07-15-18, there is mod bilat carotid arterial plaque, worse (50-70% stenosis) on the right Ischemic cardiomyopathy. Echo of May 05, 2019: LVEF 50-55%, mild MR. RVSP 20 mmHg, no signs of heart failure Intolerant to warfarin due to wide variations in INR. Currently on apixaban H/O cervical cancer for which she has undergone chemo (last tx 12 years ago) H/O sleep apnea, non-compliant with CPAP tx HLD - statin tx followed by her PCP H/O sinus bradycardia and V-tach during ED visit in November 2017 - transferred to [facility] at that time Chronic diarrhea Reports chronic lymphedema to right leg Depression H/o lupus and gout (details unknown) followed and treated by pcp Family h/o CAD (son has had coronary stenting; mother has had CVA) Clinical Quality Measures DVT/VTE Risk/Contraindication: Risk Factor Score Per Nursin RFS Level Per Nursing on Admit: 4+=Very High NOEMÍ CARVALHO MD Jan 25, 2020 07:59
[2020-01-25 08:00] VITALS: BP 155/67
[2020-01-25] MEDS: APIXABAN 2.5 MG (ELIQUIS) TABLET PO SCH ×2 (08:33→20:23)
[2020-01-25] MEDS: HYDROXYCHLOROQUINE 200 MG (PLAQUENIL) TAB PO SCH (08:33)
[2020-01-25] MEDS: GABAPENTIN 100 MG (NEURONTIN) CAP PO SCH ×2 (08:33→20:23)
[2020-01-25] MEDS: cefTRIAXone 1,000 MG/SWFI 10 ML IV PUSH IV SCH ×2 (08:33)
[2020-01-25] MEDS: lisINopril 10 MG (PRINIVIL) TABLET PO SCH (08:33)
[2020-01-25] MEDS: meTOprolol SUCCINATE 100 MG (TOPROL XL) TAB PO SCH (08:33)
[2020-01-25] MEDS: ASPIRIN E.C. 81 MG (ECOTRIN) TAB PO SCH (08:33)
[2020-01-25] MEDS: NON-FORMULARY MEDICATION 1 EA EA (Vilazodone Hydrochloride (Viibryd) 20 MG) PO SCH (08:34)
[2020-01-25] MEDS: ISOSORBIDE MONONITRATE 30 MG (IMDUR) TAB PO SCH (08:34)
[2020-01-25] MEDS: CLOPIDOGREL 75 MG (PLAVIX) TABLET PO SCH (08:34)
[2020-01-25] MEDS ORDERED: CLOPIDOGREL 75 MG (PLAVIX) TABLET PO SCH (09:00)
--- NOTE | 2020-01-25 10:02 | Diagnostic Imaging Report ---
Clinical indication: Patient with foot ulcer. Comparison: None. Findings and impression: Resting Pressures: Brachial: 129 mmHg recorded from right side Thigh: Right: 148 mmHg Left: 143 mmHg Calf: Right: 154 mmHg Left: 170 mmHg Posterior Tibial: Right: 153 mmHg Left: 156 mmHg Dorsalis pedis: Right: 139 mmHg Left: 124 mmHg Digit/toes: Per cardiac cath lab technologist: Attempted to obtain toe pressures, but could not detect blood flow in toes. ADAMS: The right ankle/arm index is 1.19. The left is 1.21. Normal is considered greater than or equal to 0.85. Dictated by: Dictated on workstation # [id number]
--- NOTE | 2020-01-25 11:05 | Progress Note - Hospitalist ---
MARIEKASIA MED STUDENT 01/25/20 1105: Subjective HPI/CC On Admission Date Seen by Provider: Jan 25, 2020 Time Seen by Provider: 08:45 CC: Weakness and fever HPI: This is a [facility] patient known to me from previous hospital stays who presented with acute kidney injury from dehydration from nausea and vomiting and was found to have a UTI, Rocephin given, IV fluids initiated and Dr. Solitario consulted for elevated Troponin. Pt feels pretty good other than gout pain so I did give her one dose of Solumedrol 40 mg to help with that. Will monitor Pt closely due to complex medical issues. Subjective/Events-last exam Pt states that she does not feel as well as she did yesterday. Her urine cultures returned positive for E.coli. She is still receiving ceftriaxone abx. She is starting on her home meds this morning as well. Her BUN and creatine is still elevated but improved from yesterday. Troponins reduced to normal values. She has started coughing and sneezing again this morning. She is eating and drinking with no problems. She has no trouble using the restroom and last BM was yesterday. She denies any chest pain or trouble breathing. Her lungs are clear bilaterally in all burroughs. Focused Exam Lactate Level 01/24/20 07:40: Lactic Acid Level 2.09*H 01/24/20 10:55: Lactic Acid Level 1.63 Time of Focused Exam: 09:45 Respiratory: Chest Non Tender, Lungs Clear, Normal Breath Sounds, No Accessory Muscle Use, No Respiratory Distress Cardiovascular: Regular Rate, Rhythm, No Edema, No Gallop, No JVD, No Murmur Peripheral Pulses: 2+ Radial Pulses (R) Skin: normal color, warm/dry Objective Exam Vital Signs Vital Signs Date Time Temp Pulse Resp B/P (MAP) Pulse Ox O2 Delivery O2 Flow Rate FiO2 01/25/20 08:00 98 Room Air 01/25/20 08:00 35.8 63 20 155/67 (96) Capillary Refill : Less Than 3 Seconds General Appearance: No Apparent Distress, WD/WN HEENT: PERRL/EOMI Neck: Full Range of Motion, Non Tender Respiratory: Chest Non Tender, Lungs Clear, Normal Breath Sounds, No Accessory Muscle Use, No Respiratory Distress Cardiovascular: Regular Rate, Rhythm, No Edema, No Gallop, No JVD, No Murmur, Normal Peripheral Pulses Gastrointestinal: Normal Bowel Sounds, No Organomegaly, Non Tender, Soft Extremity: No Pedal Edema, Other (R toe pain) Neurologic/Psychiatric: Alert, Oriented x3 Skin: Normal Color, Warm/Dry Results/Procedures Lab Laboratory Tests 01/25/20 05:50 Patient resulted labs reviewed. Assessment/Plan Assessment and Plan Assess & Plan/Chief Complaint Continue to monitor patient for signs of sepsis/shock Continue Ceftriaxone for UTI CBC and CMP daily labs Continue to get patient to eat Continue to monitor kidney function for continued improvement Possible discharge tomorrow Diagnosis/Problems Diagnosis/Problems (1) CAD (coronary artery disease) (2) Acute gouty arthritis Status: Acute (3) Vomiting Status: Acute Qualifiers: Qualified Codes: R11.10 - Vomiting, unspecified (4) Elevated troponin Status: Acute (5) Acute kidney injury Status: Acute (6) Hyperlipidemia Status: Chronic (7) Thrombosis, renal vein Status: Chronic (8) Hypertension Status: Chronic (9) Lupus (systemic lupus erythematosus) Status: Chronic (10) DVT prophylaxis Status: Acute (11) Anticoagulated on Coumadin Status: Chronic (12) UTI (urinary tract infection) Status: Acute Qualifiers: Qualified Codes: N39.0 - Urinary tract infection, site not specified Clinical Quality Measures DVT/VTE Risk/Contraindication: Risk Factor Score Per Nursin RFS Level Per Nursing on Admit: 4+=Very High Supervisory-Addendum Brief Verification & Attestation Participated in pt care: history, physical Personally performed: exam, history Care discussed with: other Procedures: n/a n/a SLIME DEL REAL DO 01/26/20 0553: Subjective Subjective/Events-last exam Pt much better Creatinine down to 2.16 Solumderol helped the gout Advancing diet Hgb 9.4 Otherwise doing very well PT and OT Has not been walking at all so may be a rehab candidate Assessment/Plan Assessment and Plan Assess & Plan/Chief Complaint rehab? PT OT IVF Supervisory-Addendum Brief Verification & Attestation Participated in pt care: history, MDM, physical Personally performed: exam, history, MDM, supervision of care Care discussed with: Medical Student Procedures: n/a Results interpretation: Verified all documentation Verification and Attestation of Medical Student E/M Service A medical student performed and documented this service in my presence. I reviewed and verified all information documented by the medical student and made modifications to such information, when appropriate. I personally performed the physical exam and medical decision making. Slime Del Real, Jan 26, 2020,05:53 KASIA SALAZAR MED STUDENT Jan 25, 2020 11:05 SLIME DEL REAL DO Jan 26, 2020 05:53
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
[2020-01-25 12:00] VITALS: BP 138/62
--- NOTE | 2020-01-25 14:13 | Physical Therapy Evaluation ---
PT Evaluation-General Medical Diagnosis Admission Date Jan 24, 2020 at 09:52 Medical Diagnosis: UTI/ sepsis Onset Date: Jan 24, 2020 Therapy Diagnosis Therapy Diagnosis: debility Height/Weight Height (Feet): 5 Height (Inches): 0.00 Weight (Pounds): 161 Weight (Ounces): 0 Precautions Precautions/Isolations: Fall Prevention, Standard Precautions Weight Bear Status Right Lower Extremity: Right Full Weight Bearing Left Lower Extremity: Left Full Weight Bearing Referral Physician: Eveline Reason for Referral: Evaluation/Treatment Medical History Pertinent Medical History: CAD, HTN Current History EMS secondary to cough,cold/flu symptoms Reviewed History: Yes Social History Home: Single Level Current Living Status: Children (son) Entry Into Home: Level Entry PT Steps Into Home: 0 PT Steps Inside Home: 0 Prior Prior Level of Function SCALE: Activities may be completed with or without assistive devices. 9-Chhqrgnrbc-wkmdkpf completes the activity by him/herself with no assistance from a helper. 5-Set-up or Clean-up Assistance-helper sets up or cleans up; patient completes activity. [place] assists only prior to or following the activity. 4-Supervision or Touching Assistance-helper provides verbal cues and/or touching/steadying and/or contact guard assistance as patient completes activity. Assistance may be provided throughout the activity or intermittently. 3-Partial/Moderate Assistance-helper does LESS THAN HALF the effort. [place] lifts, holds or supports trunk or limbs, but provides less than half the effort. 2-Substantial/Maximal Assistance-helper does MORE THAN HALF the effort. [place] lifts or holds trunk or limbs and provides more than half the effort. 7-Sslwmjthi-rxuvwy does ALL the effort. Patient does none of the effort to complete the activity. Or, the assistance of 2 or more helpers is required for the patient to complete the activity. If activity was not attempted, code reason: 7-Patient Refused. 9-Not Applicable-not attempted and the patient did not perform the activity before the current illness, exacerbation or injury. 10-Not Attempted due to Environmental Limitations-(lack of equipment, weather restraints, etc.). 88-Not Attempted due to Medical Conditions or Safety Concerns. Bed Mobility: 6 Transfers (B,C,W/C): 6 Gait: 6 Stairs: 6 Indoor Mobility (Ambulation): Independent (furniture walks per patient report) Prior Devices Use: None PT Evaluation-Current Subjective Patient adamantly declined gait belt use. Agrees to PT. Objective Patient Orientation: Normal For Age Attachments: IV ROM/Strength ROM Lower Extremities noted pronation of bilateral ankles/bilateral LE WFL Strength Lower Extremities bilateral LE 3/5 grossly Integumentary/Posture Integumentary refer to nursing notes Bowel Incontinence: No Bladder Incontinence: No Posture WFL Neuromuscular (Tone, Coordination, Reflexes) grossly intact Sensory Vision: Wears Glasses Hearing: Functional Hand Dominance: Right Transfers Roll Left to Right (QC): 5 Sit to Lying (QC): 5 Lying to Sitting/Side of Bed(Q: 5 Sit to Stand (QC): 5 Gait Does the Patient Walk?: Yes Mode of Locomotion: Walk Anticipated Mode of Locomotion: Walk Walk 10 feet (QC): 5 Walk 50 ft with 2 Turns(QC): 5 Walk 150 ft (QC): 5 Distance: 300' Gait Assistive Device: FWW Comments/Gait Description functional gait sequence with FWW Balance Sitting Static: Normal Sitting Dynamic: Normal Standing Static: Fair Standing Dynamic: Fair Assessment/Needs 74 y.o. female, will be seen short term by skilled PT to ensure safe return to home at maximum LOF. Rehab Potential: Fair PT Short Term Goals Short Term Goals Time Frame: Jan 29, 2020 Roll Left & Right: 6 Sit to lyin Lying to sitting on side of be: 6 Sit to stand: 6 Chair/gal-px-czwse transfer: 6 Toilet transfer: 6 Car transfer: 6 Walk 10 feet: 6 Walk 50 feet with two turns: 6 Walk 150 feet: 6 PT Plan Problem List Problem List: Activity Tolerance, Functional Strength, Safety, Gait Treatment/Plan Treatment Plan: Continue Plan of Care Treatment Plan: Bed Mobility, Education, Functional Activity Ghada, Functional Strength, Gait, Safety, Therapeutic Exercise, Transfers Treatment Duration: Jan 29, 2020 Frequency: 5 times per week Estimated Hrs Per Day: .25 hour per day Patient and/or Family Agrees t: Yes Discharge Recommendations Therapy Discharge Recommendati: Home & Family Time/GCodes Time In: 1326 Time Out: 1337 Total Billed Treatment Time: 11 Total Billed Treatment 1 visit EVMod 11 min BE BARBOSA PT Jan 25, 2020 14:13
--- NOTE | 2020-01-25 14:51 | NUR ---
"RD ASSESSMENT PMHx: CAD; DE; hypercholesterolemia; HTN; stroke; renal failure; chronic diarrhea; gout; lupus; CA(cervical, vaginal) PT INTERACTION: Note pt is currently in COVID isolation. Note all diet information for nutrition assessment is per Migdalia RN or per chart review. Migdalia states pt's current appetite appears good. Note avg PO intake 67% x1d, per chart review. Note pt stated she hadn't eaten in 3d and had issues with vomiting, per H&P. Migdalia states no issues with nausea, vomiting, constipation, or diarrhea that she is aware of. Note last BM was 01/23, and pt not currently on bowel regimen per chart review. Not recent 20# wt loss x3mon, per chart review. ABNORMAL NUTRITION-RELATED LAB VALUES LOW: Ca 7.7; Pro 5.1; alb 3.0 HIGH: Cl 119; BUN 28; cr 2.16; glu 107 Est. kcal needs: 1250 kcal | 20 kcal/kg Est. Pro needs: 75 g Pro | 1.2 g Pro/kg PES STATEMENT: Inadequate oral intake (NI-2.1) related to loss of appetite and vomiting, as evidenced by chart review, communication with RN, and avg PO intake 67% x1d. INTERVENTION: Continue with current diet order of Regular diet. Pt may benefit from nutrition supplementation if PO intake declines. Will continue to follow and reassess as pt needs, intake, and status change. Andrew Bell, MS RD LD"
[2020-01-25 16:28] VITALS: BP 136/60
[2020-01-25 20:21] VITALS: BP 124/59
[2020-01-25] MEDS: HYDROcodone/APAP 5 MG/325 MG (LORTAB) TAB PO PRN (20:28)
[2020-01-26] VITALS: BP 116/57
[2020-01-26] MEDS: NS IV 1000 ML 1,000 ML IV SCH (03:21)
[2020-01-26 04:00] VITALS: BP 134/55
[2020-01-26 08:43] VITALS: BP 102/58
[2020-01-26] MEDS: lisINopril 10 MG (PRINIVIL) TABLET PO SCH (09:00)
[2020-01-26] MEDS: meTOprolol SUCCINATE 100 MG (TOPROL XL) TAB PO SCH (09:00)
[2020-01-26] MEDS: NON-FORMULARY MEDICATION 1 EA EA (Vilazodone Hydrochloride (Viibryd) 20 MG) PO SCH (09:00)
[2020-01-26] MEDS: GABAPENTIN 100 MG (NEURONTIN) CAP PO SCH ×2 (09:10→21:22)
[2020-01-26] MEDS: APIXABAN 2.5 MG (ELIQUIS) TABLET PO SCH ×2 (09:10→21:22)
[2020-01-26] MEDS: cefTRIAXone 1,000 MG/SWFI 10 ML IV PUSH IV SCH ×2 (09:10)
[2020-01-26] MEDS: CLOPIDOGREL 75 MG (PLAVIX) TABLET PO SCH (09:10)
[2020-01-26] MEDS: ASPIRIN E.C. 81 MG (ECOTRIN) TAB PO SCH (09:10)
[2020-01-26 09:28] LABS: BASOPHILS % (AUTO) 0 % (0-10); EOSINOPHILS # (AUTO) 0.2 10^3/uL (0.0-0.3); EOSINOPHILS % (AUTO) 2 % (0-10); HEMATOCRIT 29 % (35-52); HEMOGLOBIN 8.5 g/dL (11.5-16.0); LYMPHOCYTES # (AUTO) 1.9 10^3/uL (1.0-4.0); LYMPHOCYTES % (AUTO) 23 % (12-44); MEAN CORPUSCULAR HEMOGLOBIN 28 pg (25-34); MEAN CORPUSCULAR HGB CONC 30 g/dL (32-36); MEAN CORPUSCULAR VOLUME 93 fL (80-99); MEAN PLATELET VOLUME 11.7 fL (9.0-12.2); MONOCYTES # (AUTO) 0.6 10^3/uL (0.0-1.0); MONOCYTES % (AUTO) 7 % (0-12); NEUTROPHILS # (AUTO) 5.5 10^3/uL (1.8-7.8); NEUTROPHILS % (AUTO) 67 % (42-75); PLATELET COUNT 199 10^3/uL (130-400); WHITE BLOOD COUNT 8.2 10^3/uL (4.3-11.0)
[2020-01-26] MEDS: HYDROXYCHLOROQUINE 200 MG (PLAQUENIL) TAB PO SCH (09:47)
[2020-01-26] MEDS: ISOSORBIDE MONONITRATE 30 MG (IMDUR) TAB PO SCH (09:47)
[2020-01-26 09:48] LABS: ALBUMIN 2.7 GM/DL (3.2-4.5); BILIRUBIN,TOTAL 0.2 MG/DL (0.1-1.0); CALCIUM 7.6 MG/DL (8.5-10.1); CREATININE SERUM 2.07 MG/DL (0.60-1.30); POTASSIUM 3.9 MMOL/L (3.6-5.0); TOTAL PROTEIN 4.8 GM/DL (6.4-8.2)
--- NOTE | 2020-01-26 09:56 | Physician Query Clarification ---
PQ-Further Specificity Admission/Discharge Admission Date: Jan 24, 2020 at 09:52 Discharge Date: Dr. Mosquera, The medical record reflects the following clinical scenario: History/Risk Factors: Sepsis UTI Clinical Findings:WBC 13.4, P 93, Resp 16, BP 147/82 Lactic acid 2.09. Urine culture>100,000/ML E Coli Treatment:IV Rocephin Question: Can you further specify Sepsis per the clinical indicators above? Please document a response in the Progress Notes or Discharge Summary. 1. Severe sepsis due e coli. 2. Sepsis due e coli. 3. Other, with explanation of the clinical findings. 4. Clinically undetermined, no explanation for the clinical findings. PHYSICIAN RESPONSE Can you specify per above: 2 Please remember a lack of response to the above will prompt a phone page by CDI/Coding staff. In responding to this query, please exercise your independent professional judgment. The purpose of this communication is to more accurately reflect the complexity of your patients condition. The fact that a question is asked does not imply that any particular answer is desired or expected. Thank you for your timely response to this clarification. Requestors name: Alyssa Guevara [facility] THIS PHYSICIAN QUERY FORM IS A PERMANENT PART OF THE MEDICAL RECORD ALYSSA GUEVARA Jan 26, 2020 09:56 SERINA MOSQUERA DO Jan 26, 2020 10:29
--- NOTE | 2020-01-26 10:04 | Physician Query Clarification ---
PQ-Conflicting Diagnosis Admission/Discharge Admission Date: Jan 24, 2020 at 09:52 Discharge Date: The medical record reflects the following clinical scenario: History/Risk Factors: Sepsis UTI NSTEMI documented in Dr. oSlitario's consult. Coronary artery disease Clinical Findings: Troponin 0.045 and 0.030. Treatment: Nitroglycerin 0.4mg, Eliquis, Plavix, Ecotrin, Lovenox injection, Toprol XI 100mg. Question: Do you agree with the impression of Non-ST elevation myocardial infarction per Dr. Solitario? Please document a response in Progress Note or Discharge Summary. 1. Yes 2. No 3. Other, with explanation of clinical findings 4. Clinically undetermined, no explanation for clinical findings. PHYSICIAN RESPONSE Do you agree w/Consulting Dx?: Yes Please remember a lack of response to the above will prompt a phone page by CDI/Coding staff. In responding to this query, please exercise your independent professional judgment. The purpose of this communication is to more accurately reflect the complexity of your patients condition. The fact that a question is asked does not imply that any particular answer is desired or expected. Thank you for your timely response to this clarification. Requestors name: Alyssa Guevara [facility] THIS PHYSICIAN QUERY FORM IS A PERMANENT PART OF THE MEDICAL RECORD ALYSSA GUEVARA Jan 26, 2020 10:04 SERINA DEL REAL DO Jan 26, 2020 10:30
--- NOTE | 2020-01-26 11:06 | Physical Therapy Daily Note ---
PT Daily Note-Current Subjective Pt presents supine in bed. Pt agrees to Pt. Pt reports no pain. Pt refuses to wear gait belt. Appearance At conclusion of PT treatment patient returns to bed where she has access to tray, call button, and all needs have been met. Mental Status Patient Orientation: Person, Place, Situation Transfers SCALE: Activities may be completed with or without assistive devices. 8-Vvtisoinoa-hcurthh completes the activity by him/herself with no assistance from a helper. 5-Set-up or Clean-up Assistance-helper sets up or cleans up; patient completes activity. [place] assists only prior to or following the activity. 4-Supervision or Touching Assistance-helper provides verbal cues and/or touching/steadying and/or contact guard assistance as patient completes activity. Assistance may be provided throughout the activity or intermittently. 3-Partial/Moderate Assistance-helper does LESS THAN HALF the effort. [place] lifts, holds or supports trunk or limbs, but provides less than half the effort. 2-Substantial/Maximal Assistance-helper does MORE THAN HALF the effort. [place] lifts or holds trunk or limbs and provides more than half the effort. 2-Kfdnmybkh-surxep does ALL the effort. Patient does none of the effort to complete the activity. Or, the assistance of 2 or more helpers is required for the patient to complete the activity. If activity was not attempted, code reason: 7-Patient Refused. 9-Not Applicable-not attempted and the patient did not perform the activity before the current illness, exacerbation or injury. 10-Not Attempted due to Environmental Limitations-(lack of equipment, weather restraints, etc.). 88-Not Attempted due to Medical Conditions or Safety Concerns. Sit to Lying (QC): 4 Lying to Sitting/Side of Bed(Q: 4 Patients transfers lying<->EOB of SBA Weight Bearing Right Lower Extremity: Right Full Weight Bearing Left Lower Extremity: Left Full Weight Bearing Exercises Supine Ex: Heel Slides Supine Reps: 20 Seated Therapy Exercises: Ankle pumps (HR/TR), Long arc quads, Hip flexion, Hip abd/add Seated Reps: 20 Treatments LE treatment Assessment Current Status: Fair Progress Patient remained on EOB due to refusal to use gait belt to stand with. Pt completed all seated and supine exercises without difficulty. PT Short Term Goals Short Term Goals Time Frame: Jan 29, 2020 Roll Left & Right: 6 Sit to lyin Lying to sitting on side of be: 6 Sit to stand: 6 Chair/grw-an-jpeit transfer: 6 Toilet transfer: 6 Car transfer: 6 Walk 10 feet: 6 Walk 50 feet with two turns: 6 Walk 150 feet: 6 PT Plan Problem List Problem List: Activity Tolerance, Functional Strength, Safety, Balance, Gait, Transfer, Bed Mobility, ROM Treatment/Plan Treatment Plan: Continue Plan of Care Treatment Plan: Bed Mobility, Education, Functional Activity Ghada, Functional Strength, Gait, Safety, Therapeutic Exercise, Transfers Treatment Duration: Jan 29, 2020 Frequency: 5 times per week Estimated Hrs Per Day: .25 hour per day Patient and/or Family Agrees t: Yes Safety Risks/Education Patient Education: Transfer Techniques, Correct Positioning, Safety Issues Teaching Recipient: Patient Teaching Methods: Demonstration, Discussion Response to Teaching: Reinforcement Needed Discussed with patient the importance and purpose of a gait belt. Time/GCodes Time In: 1020 Time Out: 1033 Total Billed Treatment Time: 13 Total Billed Treatment 1 visit EX 13' ROSALES [facility] PT Jan 26, 2020 11:06
[2020-01-26 11:09] VITALS: BP 137/57
--- NOTE | 2020-01-26 11:32 | Occupational Ther Daily Note ---
OT Current Status-Daily Note Subjective Pt laying in bed, agreeable to OT tx. Pt did not verbalize pain during session. ADL-Treatment Therapy Code Descriptions/Definitions Functional [place] Measure: 0=Not Assessed/NA 4=Minimal Assistance 1=Total Assistance 5=Supervision or Setup 2=Maximal Assistance 6=Modified [place] 3=Moderate Assistance 7=Complete IndependenceSCALE: Activities may be completed with or without assistive devices. 9-Gzbcjnsliw-nlogcyt completes the activity by him/herself with no assistance from a helper. 5-Set-up or Clean-up Assistance-helper sets up or cleans up; patient completes activity. [place] assists only prior to or following the activity. 4-Supervision or Touching Assistance-helper provides verbal cues and/or touching/steadying and/or contact guard assistance as patient completes activity. Assistance may be provided throughout the activity or intermittently. 3-Partial/Moderate Assistance-helper does LESS THAN HALF the effort. [place] lifts, holds or supports trunk or limbs, but provides less than half the effort. 2-Substantial/Maximal Assistance-helper does MORE THAN HALF the effort. [place] lifts or holds trunk or limbs and provides more than half the effort. 3-Ywwwhgrvp-ypimll does ALL the effort. Patient does none of the effort to complete the activity. Or, the assistance of 2 or more helpers is required for the patient to complete the activity. If activity was not attempted, code reason: 7-Patient Refused. 9-Not Applicable-not attempted and the patient did not perform the activity before the current illness, exacerbation or injury. 10-Not Attempted due to Environmental Limitations-(lack of equipment, weather restraints, etc.). 88-Not Attempted due to Medical Conditions or Safety Concerns. Other Treatment Pt laying in bed. In order to increase BUE strength and functional endurance OT educated pt on BUE exercises. Pt attempted exercises with moderate resistance red theraband, but this was too difficult for pt so AROM performed in stead. Pt able to complete x10 reps shoulder flexion on R side, unable to complete on L due to limitations in shoulder ROM. Pt then able to complete x10 reps BUE elbow flexion, elbow extension, and finger flexion/extension. OT educated pt to com plete exercises as able, a couple times a day, increasing reps as tolerated. Pt verbalized understanding. Post OT tx, pt laying in bed, call light in reach and all needs met. Education OT Patient Education: Correct positioning, Energy conservation, Modified ADL techniques, Progress toward Goal/Update tx plan, Purpose of tx/functional activities, Safety issues Teaching Recipient: Patient Teaching Methods: Discussion Response to Teaching: Verbalize Understanding OT Personal Finance Instructor Goals Personal Finance Instructor Goals Time Frame: Feb 01, 2020 Eating (QC): 6 Oral Hygiene (QC): 6 Toileting Hygiene (QC): 6 Shower/Bathe Self (QC): 6 Upper Body Dressing (QC): 6 Lower Body Dressing (QC): 6 On/Off Footwear (QC): 6 Additional Goals: 1-Demonstrate ADL Tasks, 2-Verbalize Understanding, 3- ImproveStrength/[place] 1=Demonstrate adherence to instructed precautions during ADL tasks. 2=Patient will verbalize/demonstrate understanding of assistive devices/modifications for ADL. 3=Patient will improve strength/tolerance for activity to enable patient to perform ADL's. OT Education/Plan Problem List/Assessment Assessment: Decreased Activ Tolerance, Decreased UE Strength, Impaired I ADL's, Impaired Self-Care Skills Discharge Recommendations Plan/Recommendations: Continue POC Treatment Plan/Plan of Care Patient would benefit from OT for education, treatment and training to promote independence in ADL's, mobility, safety and/or upper extremity function for ADL's. Plan of Care: ADL Retraining, Functional Mobility, UE Funct Exercise/Act, UE Neuromus Re-Ed/Coord Treatment Duration: Feb 01, 2020 Frequency: 5 times per week Estimated Hrs Per Day: .25 hour per day Agreement: Yes Rehab Potential: Fair Time/GCodes Start Time: 08:42 Stop Time: 08:52 Total Time Billed (hr/min): 10 Billed Treatment Time 1, EX NIRAMLA GRIMM OT Jan 26, 2020 11:32
--- NOTE | 2020-01-26 11:58 | Progress Note - Hospitalist ---
KASIA SALAZAR MED STUDENT 01/26/20 1158: Subjective HPI/CC On Admission Date Seen by Provider: Jan 26, 2020 Time Seen by Provider: 08:50 CC: Weakness and fever HPI: This is a [facility] patient known to me from previous hospital stays who presented with acute kidney injury from dehydration from nausea and vomiting and was found to have a UTI, Rocephin given, IV fluids initiated and Dr. Solitario consulted for elevated Troponin. Pt feels pretty good other than gout pain so I did give her one dose of Solumedrol 40 mg to help with that. Will monitor Pt closely due to complex medical issues. Subjective/Events-last exam Patient states that she is feeling about the same as she did yesterday. She ate breakfast this morning with no problems, she states that she hasn't had a bowel movement yet since being in the hospital. She states that she has not had any difficulties using the restroom otherwise. She has gotten up and moved around some. She stated that she was walking around earlier and experienced jaw pain and rapid heart rate, which she took a nitro for. She does not have any other complaints. She denies chest pain and difficulties breathing. Lungs clear on accusation in all burroughs bilaterally. Focused Exam Lactate Level 01/24/20 07:40: Lactic Acid Level 2.09*H 01/24/20 10:55: Lactic Acid Level 1.63 Time of Focused Exam: 09:45 Respiratory: Chest Non Tender, Lungs Clear, Normal Breath Sounds, No Accessory Muscle Use, No Respiratory Distress Cardiovascular: Regular Rate, Rhythm, No Edema, No Gallop, No JVD, No Murmur, Normal Peripheral Pulses Peripheral Pulses: 2+ Radial Pulses (R) Skin: normal color, warm/dry Objective Exam Vital Signs Vital Signs Date Time Temp Pulse Resp B/P (MAP) Pulse Ox O2 Delivery O2 Flow Rate FiO2 01/26/20 11:09 36.7 71 18 137/57 (83) 98 Room Air Capillary Refill : Less Than 3 Seconds General Appearance: No Apparent Distress, WD/WN Neck: Full Range of Motion, Non Tender Respiratory: Chest Non Tender, Lungs Clear, Normal Breath Sounds, No Accessory Muscle Use, No Respiratory Distress Cardiovascular: Regular Rate, Rhythm, No Edema, No Gallop, No JVD, No Murmur, Normal Peripheral Pulses Gastrointestinal: Normal Bowel Sounds Extremity: Normal Capillary Refill, No Pedal Edema Neurologic/Psychiatric: Alert, Oriented x3 Skin: Normal Color, Warm/Dry Results/Procedures Lab Laboratory Tests 01/26/20 09:21 Patient resulted labs reviewed. Assessment/Plan Assessment and Plan Assess & Plan/Chief Complaint Continue to monitor patient for signs of sepsis/shock Continue Ceftriaxone for UTI CBC and CMP daily labs Continue to get patient to eat Continue to monitor kidney function for continued improvement Possible discharge tomorrow Diagnosis/Problems Diagnosis/Problems (1) CAD (coronary artery disease) (2) Acute gouty arthritis Status: Acute (3) Vomiting Status: Acute Qualifiers: Qualified Codes: R11.10 - Vomiting, unspecified (4) Elevated troponin Status: Acute (5) Acute kidney injury Status: Acute (6) Hyperlipidemia Status: Chronic (7) Thrombosis, renal vein Status: Chronic (8) Hypertension Status: Chronic (9) Lupus (systemic lupus erythematosus) Status: Chronic (10) DVT prophylaxis Status: Acute (11) Anticoagulated on Coumadin Status: Chronic (12) UTI (urinary tract infection) Status: Acute Qualifiers: Qualified Codes: N39.0 - Urinary tract infection, site not specified Clinical Quality Measures DVT/VTE Risk/Contraindication: Risk Factor Score Per Nursin RFS Level Per Nursing on Admit: 4+=Very High Supervisory-Addendum Brief Verification & Attestation Participated in pt care: history, MDM Personally performed: exam, history Care discussed with: other Procedures: n/a n/a SLIME DEL REAL DO 01/27/20 0543: Subjective Subjective/Events-last exam Pt having a better day Bowels moving Took a Nitroglycerin for chest pain Cardiology will monitor her Blood cultures- no growth to date Maintain on Rocephin No more nausea or vomiting noted Review of Systems General: Fatigue, Malaise Cardiovascular: Chest Pain Objective Exam General Appearance: No Apparent Distress, WD/WN, Chronically ill Respiratory: Lungs Clear Cardiovascular: Regular Rate, Rhythm Assessment/Plan Assessment and Plan Assess & Plan/Chief Complaint Monitor crejael [facility] Cardiology for chest pain Supervisory-Addendum Brief Verification & Attestation Participated in pt care: history, MDM, physical Personally performed: exam, history, MDM, supervision of care Care discussed with: Medical Student Procedures: n/a Results interpretation: Verified all documentation Verification and Attestation of Medical Student E/M Service A medical student performed and documented this service in my presence. I reviewed and verified all information documented by the medical student and made modifications to such information, when appropriate. I personally performed the physical exam and medical decision making. Slime Del Real, Jan 27, 2020,05:43 KASIA SALAZAR MED STUDENT Jan 26, 2020 11:58 SLIME DEL REAL DO Jan 27, 2020 05:43
--- NOTE | 2020-01-26 13:47 | NUR ---
IRF Evaluation Determination: Denied Findings: Patient is ambulating (300ft, FWW) and completing bed mobility with setup, as well as completing toilet hygiene and LE dressing with SBA. It is noted patient has required minimal assistance with UE dressing; however, patient does not meet criterion, "require active and ongoing intervention of multiple therapy disciplines (PT,OT,CHARTERED ACCOUNTANT), at least one of which must be PT or OT." Thank you for this referral.
[2020-01-26 16:17] VITALS: BP 146/73
--- NOTE | 2020-01-26 16:33 | Cardiology Progress Note ---
Cardiology SOAP Progress Note Objective: I&O/Vital Signs 01/26/20 01/26/20 01/26/20 01/26/20 06:39 08:43 09:00 11:09 Temp 36.1 36.7 Pulse 51 70 71 Resp 22 18 B/P (MAP) 102/58 (73) 137/57 (83) Pulse Ox 96 96 98 O2 Delivery Room Air Room Air Room Air 01/26/20 01/26/20 12:37 16:17 Temp 36.4 Pulse 54 66 Resp 20 B/P (MAP) 146/73 (97) Pulse Ox 97 O2 Delivery Room Air 01/26/20 00:00 Intake Total 1750 ml Balance 1750 ml Weight (Pounds): 161 Weight (Ounces): 0 Weight (Calculated Kilograms): 73.644211 Skin: normal color, warm/dry Results/Procedures: Labs Laboratory Tests 01/26/20 09:21: White Blood Count 8.2, Red Blood Count 3.09L, Hemoglobin 8.5L, Hematocrit 29L, Mean Corpuscular Volume 93, Mean Corpuscular Hemoglobin 28, Mean Corpuscular Hemoglobin Concent 30L, Red Cell Distribution Width 15.4H, Platelet Count 199, Mean Platelet Volume 11.7, Immature Granulocyte % (Auto) 1, Neutrophils (%) (Auto) 67, Lymphocytes (%) (Auto) 23, Monocytes (%) (Auto) 7, Eosinophils (%) (Auto) 2, Basophils (%) (Auto) 0, Neutrophils # (Auto) 5.5, Lymphocytes # (Auto) 1.9, Monocytes # (Auto) 0.6, Eosinophils # (Auto) 0.2, Basophils # (Auto) 0.0, Immature Granulocyte # (Auto) 0.0, Sodium Level 144, Potassium Level 3.9, Chloride Level 121H, Carbon Dioxide Level 15L, Anion Gap 8, Blood Urea Nitrogen 27H, Creatinine 2.07H, Estimat Glomerular Filtration Rate 24, BUN/Creatinine Ratio 13, Glucose Level 85, Calcium Level 7.6L, Corrected Calcium 8.6, Total Bilirubin 0.2, Aspartate Amino Transf (AST/SGOT) 11, Alanine Aminotransferase (ALT/SGPT) 9, Alkaline Phosphatase 46, Total Protein 4.8L, Albumin 2.7L Microbiology 01/24/20 Urine Culture - Final, Complete Escherichia coli 01/24/20 Blood Culture - Preliminary, Resulted No growth 01/24/20 Influenza Types A,B Antigen (TEE) - Final, Complete A/P: Thank you for your consultation. Please call me if you have any questions. Carson Villarreal MD, FACP, FACC, FSCAI, FHRS, CCDS Interventional Cardiology Cardiac Electrophysiology Vascular Medicine and Endovascular Interventions Focused Exam Lactate Level 01/24/20 07:40: Lactic Acid Level 2.09*H 01/24/20 10:55: Lactic Acid Level 1.63 Time of Focused Exam: 09:45 Floresita VILLARREAL MD Jan 26, 2020 16:33
[2020-01-26] MEDS: HYDROcodone/APAP 5 MG/325 MG (LORTAB) TAB PO PRN (20:03)
[2020-01-26 20:07] VITALS: BP 156/68
[2020-01-27 02:34] VITALS: BP 149/75
[2020-01-27 04:00] VITALS: BP 129/77
[2020-01-27 05:27] VITALS: BP 129/77
[2020-01-27 06:12] LABS: BASOPHILS % (AUTO) 0 % (0-10); EOSINOPHILS # (AUTO) 0.2 10^3/uL (0.0-0.3); EOSINOPHILS % (AUTO) 3 % (0-10); HEMATOCRIT 29 % (35-52); HEMOGLOBIN 8.6 g/dL (11.5-16.0); LYMPHOCYTES # (AUTO) 1.8 10^3/uL (1.0-4.0); LYMPHOCYTES % (AUTO) 29 % (12-44); MEAN CORPUSCULAR HEMOGLOBIN 28 pg (25-34); MEAN CORPUSCULAR HGB CONC 30 g/dL (32-36); MEAN CORPUSCULAR VOLUME 92 fL (80-99); MEAN PLATELET VOLUME 11.5 fL (9.0-12.2); MONOCYTES # (AUTO) 0.5 10^3/uL (0.0-1.0); MONOCYTES % (AUTO) 7 % (0-12); NEUTROPHILS # (AUTO) 3.7 10^3/uL (1.8-7.8); NEUTROPHILS % (AUTO) 61 % (42-75); PLATELET COUNT 201 10^3/uL (130-400); WHITE BLOOD COUNT 6.1 10^3/uL (4.3-11.0)
[2020-01-27 06:28] LABS: ALBUMIN 2.7 GM/DL (3.2-4.5); BILIRUBIN,TOTAL 0.2 MG/DL (0.1-1.0); CALCIUM 7.8 MG/DL (8.5-10.1); CREATININE SERUM 2.08 MG/DL (0.60-1.30); TOTAL PROTEIN 4.9 GM/DL (6.4-8.2)
[2020-01-27 07:50] VITALS: BP 168/82
[2020-01-27] MEDS: APIXABAN 2.5 MG (ELIQUIS) TABLET PO SCH (08:46)
[2020-01-27] MEDS: ISOSORBIDE MONONITRATE 30 MG (IMDUR) TAB PO SCH (08:46)
[2020-01-27] MEDS: lisINopril 10 MG (PRINIVIL) TABLET PO SCH (08:46)
[2020-01-27] MEDS: GABAPENTIN 100 MG (NEURONTIN) CAP PO SCH (08:47)
[2020-01-27] MEDS: meTOprolol SUCCINATE 100 MG (TOPROL XL) TAB PO SCH (08:47)
[2020-01-27] MEDS: ASPIRIN E.C. 81 MG (ECOTRIN) TAB PO SCH (08:47)
[2020-01-27] MEDS: CLOPIDOGREL 75 MG (PLAVIX) TABLET PO SCH (08:47)
[2020-01-27] MEDS: HYDROXYCHLOROQUINE 200 MG (PLAQUENIL) TAB PO SCH (08:47)
[2020-01-27] MEDS: NON-FORMULARY MEDICATION 1 EA EA (Vilazodone Hydrochloride (Viibryd) 20 MG) PO SCH (08:48)
[2020-01-27] MEDS: cefTRIAXone 1,000 MG/SWFI 10 ML IV PUSH IV SCH ×2 (08:48)
[2020-01-27] MEDS ORDERED: CEFD300C3 PO (11:28)
[2020-01-27] MEDS ORDERED: ASPI-1238 PO (11:28)
--- NOTE | 2020-01-27 11:29 | D/C HH Face to Face Order ---
D/C Face to Face Orders Reconcile Patient Problems Problems Reviewed?: Yes Instructions for Patient Via Nia Tindie, Patient Instructions/FollowUp: [facility] 1 week Physician to follow Patient: [facility] Discharge Diet for Home: ADA Diet, Cardiac Diet Patient Problems: UTI ARF CAD Goals for Patient: [place] Patient Data-Allergies,Ht & Wt Patient Allergies: Coded Allergies: No Known Drug Allergies (Verified , 10/21/08) Height (Feet): 5 Height (Inches): 0.00 Weight (Pounds): 161 Weight (Ounces): 0 Home Health Need/Face to Face Date of Face to Face: Jan 27, 2020 Clinical Findings: Generalized weakness and fatigue, Instability, Muscle weakness, Unsteady gait I have seen Pt [id number]: Yes Discharged To: Home Diagnosis/Conditions: UTI ARF CAD Patient is Homebound due to: Umberto fall risk due to instabilty, Muscle weakness Homebound Status Due to the above stated illness, injury or surgical procedure (medical condition or diagnosis) and associated clinical findings, the patient is homebound because of his/her inability to leave home except with aid of a supportive device and/or person AND leaving the home requires a considerable and taxing effort or is medically contraindicated. Pt req the following assistanc: [facility] Nursing Orders Home Health Services Order: Nursing Services, [place] Tender-Evaluate & Treat, Physical Therapy-Evaluate & Treat Home Health Infusion Therapy Line Start Date: Jan 24, 2020 Certify Stmt I certify that this patient is under my care and that I, a nurse practitioner or a physician; a respiratory therapy assistant working with me, had a face to face encounter that - meets the physician face to face encounter requirements with this patient as dated. SERINA DEL REAL DO Jan 27, 2020 11:29
--- NOTE | 2020-01-27 11:30 | Discharge Summary ---
Discharge Summary Hospital Course Was the Problem List Reviewed?: Yes Problems/Dx: (1) CAD (coronary artery disease) (2) Acute gouty arthritis Status: Acute (3) Vomiting Status: Acute Qualifiers: Qualified Codes: R11.10 - Vomiting, unspecified (4) Elevated troponin Status: Acute (5) Acute kidney injury Status: Acute (6) Hyperlipidemia Status: Chronic (7) Thrombosis, renal vein Status: Chronic (8) Hypertension Status: Chronic (9) Lupus (systemic lupus erythematosus) Status: Chronic (10) DVT prophylaxis Status: Acute (11) Anticoagulated on Coumadin Status: Chronic (12) UTI (urinary tract infection) Status: Acute Qualifiers: Qualified Codes: N39.0 - Urinary tract infection, site not specified Hospital Course Date of Admission: Jan 24, 2020 at 09:52 Admission Diagnosis : Family Physician/Provider: Peng Meade Date of Discharge: 01/27/20 Discharge Diagnosis: UTI, ARF, Type 2 HI, COPD Hospital Course: Standard course after admitted for UTI and ARF and elevated troponin. Patient tolerated IVF and IV abx and was able to recover quickly back to baseline. PT OT ordered and she was ready for DC with completion of abx as outpatient pill form. Labs and Pending Lab Test: Laboratory Tests 01/27/20 05:55: White Blood Count 6.1, Red Blood Count 3.12L, Hemoglobin 8.6L, Hematocrit 29L, Mean Corpuscular Volume 92, Mean Corpuscular Hemoglobin 28, Mean Corpuscular Hemoglobin Concent 30L, Red Cell Distribution Width 15.5H, Platelet Count 201, Mean Platelet Volume 11.5, Immature Granulocyte % (Auto) 1, Neutrophils (%) (Auto) 61, Lymphocytes (%) (Auto) 29, Monocytes (%) (Auto) 7, Eosinophils (%) (Auto) 3, Basophils (%) (Auto) 0, Neutrophils # (Auto) 3.7, Lymphocytes # (Auto) 1.8, Monocytes # (Auto) 0.5, Eosinophils # (Auto) 0.2, Basophils # (Auto) 0.0, Immature Granulocyte # (Auto) 0.0, Sodium Level 142, Potassium Level 4.0, C hloride Level 120H, Carbon Dioxide Level 14L, Anion Gap 8, Blood Urea Nitrogen 26H, Creatinine 2.08H, Estimat Glomerular Filtration Rate 23, BUN/Creatinine Ratio 13, Glucose Level 68L, Calcium Level 7.8L, Corrected Calcium 8.8, Total Bilirubin 0.2, Aspartate Amino Transf (AST/SGOT) 11, Alanine Aminotransferase (ALT/SGPT) 10, Alkaline Phosphatase 54, Total Protein 4.9L, Albumin 2.7L Microbiology 01/24/20 Urine Culture - Final, Complete Escherichia coli 01/24/20 Blood Culture - Preliminary, Resulted No growth 01/24/20 Influenza Types A,B Antigen (TEE) - Final, Complete Home Meds Active Cefdinir 300 Mg Capsule 300 Mg PO BID Aspirin EC (Aspirin) 81 Mg Tablet.dr 81 Mg PO DAILY Reported Nitroglycerin 0.3 Mg Tab.subl 0.3 Mg SL PRN PRN Clopidogrel (Clopidogrel Bisulfate) 75 Mg Tablet 75 Mg PO DAILY Eliquis (Apixaban) 2.5 Mg Tablet 2.5 Mg PO BID Gabapentin 100 Mg Capsule 200 Mg PO DAILY TAKES 2 (100MG) TABLETS Gabapentin 100 Mg Capsule 100 Mg PO HS Metoprolol Succinate 100 Mg Tab.er.24h 100 Mg PO DAILY Lisinopril 10 Mg Tablet 10 Mg PO DAILY Hydrocodone-Acetamin 5-325 mg (Hydrocodone/Acetaminophen) 1 Each Tablet 1 Ea PO TID PRN Isosorbide Mononitrate ER (Isosorbide Mononitrate) 30 Mg Tab.er.24h 30 Mg PO DAILY Hydroxychloroquine Sulfate 200 Mg Tablet 400 Mg PO DAILY TAKES 2 (200MG) TABS Atorvastatin Calcium 20 Mg Tablet 20 Mg PO HS Viibryd (Vilazodone Hydrochloride) 20 Mg Tablet 20 Mg PO DAILY Prednisone 10 Mg Tab 10 Mg PO DAILY Assessment/Pt Instructions chc 1 week Discharge Planning: <30 minutes discharge planning Discharge Physical Examination Vital Signs Vital Signs Date Time Temp Pulse Resp B/P (MAP) Pulse Ox O2 Delivery O2 Flow Rate FiO2 01/27/20 08:00 95 Room Air 01/27/20 07:50 36.8 90 20 168/82 (110) General Appearance: No Apparent Distress, WD/WN, Chronically ill Respiratory: Lungs Clear Cardiovascular: Regular Rate, Rhythm Allergies: Coded Allergies: No Known Drug Allergies (Verified , 10/21/08) Discharge Summary Date of Admission Jan 24, 2020 at 09:52 Date of Discharge Discharge Date: Jan 27, 2020 Admission Diagnosis Assessment: UTI Sepsis Elevated Troponin Acute kidney injury Plan: IV fluids IV antibiotics Cardiology consultation Discharge Diagnosis Monitor creat IVF Cardiology for chest pain (1) CAD (coronary artery disease) (2) Acute gouty arthritis Status: Acute (3) Vomiting Status: Acute Qualifiers: Qualified Codes: R11.10 - Vomiting, unspecified (4) Elevated troponin Status: Acute (5) Acute kidney injury Status: Acute (6) Hyperlipidemia Status: Chronic (7) Thrombosis, renal vein Status: Chronic (8) Hypertension Status: Chronic (9) Lupus (systemic lupus erythematosus) Status: Chronic (10) DVT prophylaxis Status: Acute (11) Anticoagulated on Coumadin Status: Chronic (12) UTI (urinary tract infection) Status: Acute Qualifiers: Qualified Codes: N39.0 - Urinary tract infection, site not specified Clinical Quality Measures DVT/VTE Risk/Contraindication: Risk Factor Score Per Nursin RFS Level Per Nursing on Admit: 4+=Very High SERINA DEL REAL DO Jan 27, 2020 11:30
--- NOTE | 2020-01-27 11:38 | NUR ---
DISCHARGE PLAN: Patient is discharging today to home with home health through [facility]. I have faxed clinicals and unfinalized orders. Transportation has been arrange through [employer] trip ID #[id number]. The driver operator was instructed to call the floor when here and we would bring her down to the registration entrance.
[2020-01-27 11:40] VITALS: BP 167/85
--- NOTE | 2020-01-27 12:59 | Progress Note ---
KASIA SALAZAR MED STUDENT 01/27/20 1259: Progress Note This patient was admitted on 01/23 for suspected sepsis/UTI that was later confirmed with urine culture. Over her hospital stay she received physical therapy and was given IV antibiotics. She continued to improve each day. Her BUN and creatine are elevated at baseline, levels for both were high for her entire admission, but decreased down to their baseline levels. On 01/26 she was feeling much better. She was able to eat, use the restroom, ambulate well, and was able to be discharged and to continue taking her abx orally. Supervisory-Addendum Brief Verification & Attestation Participated in pt care: history, physical Personally performed: exam, history Care discussed with: other Procedures: n/a SLIME DEL REAL DO 01/28/20 0701: Supervisory-Addendum Brief Verification & Attestation Participated in pt care: history, MDM, physical Personally performed: exam, history, MDM, supervision of care Care discussed with: Medical Student Procedures: n/a Results interpretation: Verified all documentation Verification and Attestation of Medical Student E/M Service A medical student performed and documented this service in my presence. I reviewed and verified all information documented by the medical student and made modifications to such information, when appropriate. I personally performed the physical exam and medical decision making. Slime Del Real, Jan 28, 2020,07:01 KASIA SALAZAR MED STUDENT Jan 27, 2020 12:59 SLIME DEL REAL DO Jan 28, 2020 07:01
--- NOTE | 2020-01-27 13:53 | Occ Therapy Progress Note ---
Therapy Progress Note Pt states she is planning on discharging home today, the items in her room gathered into personal belonging bags. Pt pleasantly declined OT services at this time stating she would like to save her energy to return home. OT will attempt again tomorrow if pt is still admitted. 1, visit 1345 NIRMALA GRIMM OT Jan 27, 2020 13:53
--- NOTE | 2020-01-27 14:19 | NUR ---
CM/SS: Visited with pt as to her plan for discharge Plan: Pt to return home with [facility] and will continue to have [facility] for 20 hours in the home. Summary: Pt is ok to return home today. She is open to home care and is agreeable to a referral to [facility]. Information is verified address/phone number. Pt also asking about meals on wheels. This worker will call her Labor Custodian - Asim Dumont and follow up on the meals. Asim Dumont returns call and wants to talk to pt. He is given the pt's information to her room - [phone] to call and give her the information on the delivered meals.
[2020-01-27 14:30] VITALS: BP 167/85
--- NOTE | 2020-01-27 14:30 | NUR ---
DISCHARGE INSTRUCTIONS GIVEN, VERBALIZED UNDERSTANDING, INSTRUCTED ON NEW PRESCRIPTIONS, MIDLINE IV DC, SITE WITHOUT REDNESS OR SWELLING, WAITING FOR RIDE
--- NOTE | 2020-01-27 18:34 | Cardiology Progress Note ---
Cardiology SOAP Progress Note Objective: I&O/Vital Signs 01/27/20 01/27/20 01/27/20 01/27/20 06:41 07:50 08:00 11:40 Temp 36.8 36.6 Pulse 71 90 70 Resp 20 20 B/P (MAP) 168/82 (110) 167/85 (112) Pulse Ox 98 95 97 O2 Delivery Room Air Room Air Room Air 01/27/20 14:30 Temp 36.6 Pulse 70 Resp 20 B/P (MAP) 167/85 Pulse Ox 97 O2 Delivery Room Air 01/27/20 00:00 Intake Total 1415 ml Balance 1415 ml Weight (Pounds): 161 Weight (Ounces): 0 Weight (Calculated Kilograms): 73.100711 Skin: normal color, warm/dry Results/Procedures: Labs Laboratory Tests 01/27/20 05:55: White Blood Count 6.1, Red Blood Count 3.12L, Hemoglobin 8.6L, Hematocrit 29L, Mean Corpuscular Volume 92, Mean Corpuscular Hemoglobin 28, Mean Corpuscular Hemoglobin Concent 30L, Red Cell Distribution Width 15.5H, Platelet Count 201, Mean Platelet Volume 11.5, Immature Granulocyte % (Auto) 1, Neutrophils (%) (Auto) 61, Lymphocytes (%) (Auto) 29, Monocytes (%) (Auto) 7, Eosinophils (%) (Auto) 3, Basophils (%) (Auto) 0, Neutrophils # (Auto) 3.7, Lymphocytes # (Auto) 1.8, Monocytes # (Auto) 0.5, Eosinophils # (Auto) 0.2, Basophils # (Auto) 0.0, Immature Granulocyte # (Auto) 0.0, Sodium Level 142, Potassium Level 4.0, Chloride Level 120H, Carbon Dioxide Level 14L, Anion Gap 8, Blood Urea Nitrogen 26H, Creatinine 2.08H, Estimat Glomerular Filtration Rate 23, BUN/Creatinine Ratio 13, Glucose Level 68L, Calcium Level 7.8L, Corrected Calcium 8.8, Total Bilirubin 0.2, Aspartate Amino Transf (AST/SGOT) 11, Alanine Aminotransferase (ALT/SGPT) 10, Alkaline Phosphatase 54, Total Protein 4.9L, Albumin 2.7L Microbiology 01/24/20 Urine Culture - Final, Complete Escherichia coli 01/24/20 Blood Culture - Preliminary, Resulted No growth 01/24/20 Influenza Types A,B Antigen (TEE) - Final, Complete A/P: Thank you for your consultation. Please call me if you have any questions. Carson Villarreal MD, FACP, FACC, FSCAI, FHRS, CCDS Interventional Cardiology Cardiac Electrophysiology Vascular Medicine and Endovascular Interventions Focused Exam Time of Focused Exam: 09:45 Floresita VILLARREAL MD Jan 27, 2020 18:34
== END 2020-01-27 14:45 | disposition home health service (06) | DRG 871 ==
LOC: ER 06:47 → 4TH 09:52
PROVIDERS: ADMIT Internal Medicine; ATTEND Internal Medicine
DX: A41.51 Sepsis due to Escherichia coli [E. coli] (principal); I21.4 Non-ST elevation (NSTEMI) myocardial infarction; N39.0 Urinary tract infection, site not specified; N17.9 Acute kidney failure, unspecified; N18.4 Chronic kidney disease, stage 4 (severe); I25.10 Atherosclerotic heart disease of native coronary artery without angina pectoris; E86.0 Dehydration; Z20.828 Contact with and (suspected) exposure to other viral communicable diseases; Z23 Encounter for immunization; I25.2 Old myocardial infarction; I12.9 Hypertensive chronic kidney disease with stage 1 through stage 4 chronic kidney disease, or unspecified chronic kidney disease; M32.9 Systemic lupus erythematosus, unspecified; M79.7 Fibromyalgia; I65.23 Occlusion and stenosis of bilateral carotid arteries; I25.5 Ischemic cardiomyopathy; I34.0 Nonrheumatic mitral (valve) insufficiency; G47.30 Sleep apnea, unspecified; E78.5 Hyperlipidemia, unspecified; I89.0 Lymphedema, not elsewhere classified; E78.00 Pure hypercholesterolemia, unspecified; M10.9 Gout, unspecified; I49.3 Ventricular premature depolarization; G62.9 Polyneuropathy, unspecified; F32.9 Major depressive disorder, single episode, unspecified; F41.9 Anxiety disorder, unspecified; M19.91 Primary osteoarthritis, unspecified site; I73.9 Peripheral vascular disease, unspecified; L97.529 Non-pressure chronic ulcer of other part of left foot with unspecified severity; Z95.5 Presence of coronary angioplasty implant and graft; Z86.718 Personal history of other venous thrombosis and embolism; Z86.73 Personal history of transient ischemic attack (TIA), and cerebral infarction without residual deficits; Z91.19 Patient's noncompliance with other medical treatment and regimen; Z92.3 Personal history of irradiation; Z92.21 Personal history of antineoplastic chemotherapy; Z87.891 Personal history of nicotine dependence; Z79.01 Long term (current) use of anticoagulants; Z79.82 Long term (current) use of aspirin; Z85.41 Personal history of malignant neoplasm of cervix uteri
CPT/HCPCS: 36415; 71045; 76937; 80053; 81000; 83605; 83615; 83690; 84145; 84484; 84550; 85007; 85025; 85027; 85610; 85730; 86141; 87040; 87077; 87088; 87186; 87635; 87804; 90662; 93005; 93923

== ENCOUNTER 2020-03-08 14:52 | Observation (INO) | payer MEDICARE, MEDICAID ==
[~2020-03-08] VITALS: Ht 157.5 cm; Wt 62.0 kg
[~2020-03-08 14:52] MED LIST changes: +CEFD300C3 PO
[2020-03-08] MEDS ORDERED: NS IV 1000 ML 1,000 ML ONE (15:37)
[2020-03-08] MEDS ORDERED: NS IV 1000 ML 1,000 ML IV SCH (15:45)
[2020-03-08 15:46] LABS: BASOPHILS % (AUTO) 0 % (0-10); EOSINOPHILS % (AUTO) 0 % (0-10); HEMATOCRIT 35 % (35-52); HEMOGLOBIN 10.8 g/dL (11.5-16.0); LYMPHOCYTES # (AUTO) 0.6 10^3/uL (1.0-4.0); LYMPHOCYTES % (AUTO) 4 % (12-44); MEAN CORPUSCULAR HEMOGLOBIN 28 pg (25-34); MEAN CORPUSCULAR HGB CONC 31 g/dL (32-36); MEAN CORPUSCULAR VOLUME 91 fL (80-99); MONOCYTES # (AUTO) 0.9 10^3/uL (0.0-1.0); MONOCYTES % (AUTO) 5 % (0-12); NEUTROPHILS # (AUTO) 14.5 10^3/uL (1.8-7.8); NEUTROPHILS % (AUTO) 90 % (42-75); PLATELET COUNT 271 10^3/uL (130-400); WHITE BLOOD COUNT 16.1 10^3/uL (4.3-11.0)
--- NOTE | 2020-03-08 15:58 | Diagnostic Imaging Report ---
INDICATION: Sepsis, shortness of breath Portable chest 3:59 PM Heart size and pulmonary vascularity are normal. Lungs are clear. There are no effusions or pneumothoraces. IMPRESSION: No acute abnormalities in the chest. Dictated by: Dictated on workstation # [id number]
[2020-03-08 16:08] LABS: ALBUMIN 3.4 GM/DL (3.2-4.5); POTASSIUM 4.2 MMOL/L (3.6-5.0)
[2020-03-08 16:09] LABS: CALCIUM 8.7 MG/DL (8.5-10.1)
[2020-03-08 16:10] LABS: TOTAL PROTEIN 6.4 GM/DL (6.4-8.2)
[2020-03-08 16:12] LABS: BILIRUBIN,TOTAL 0.9 MG/DL (0.1-1.0)
[2020-03-08 16:14] LABS: CREATININE SERUM 2.8 MG/DL (0.60-1.30)
[2020-03-08 16:15] LABS: INR 1.6 (0.8-1.4); PROTHROMBIN TIME PATIENT 19.2 SEC (12.2-14.7)
[2020-03-08 16:31] LABS: BASOPHILS % (MANUAL) 1 %; EOSINOPHILS % (MANUAL) 1 %; LYMPHOCYTES % (MANUAL) 5 %; MONOCYTES % (MANUAL) 3 %; NEUTROPHILS % (MANUAL) 90 %; RBC MORPH NORMAL
[2020-03-08 17:41] LABS: BILIRUBIN,URINE NEGATIVE (NEGATIVE); CLARITY,URINE CLEAR; COLOR,URINE YELLOW; GLUCOSE, URINE (UA) NEGATIVE (NEGATIVE); KETONES,URINE NEGATIVE (NEGATIVE); LEUKOCYTE ESTERASE ,URINE NEGATIVE (NEGATIVE); NITRITE,URINE NEGATIVE (NEGATIVE); PROTEIN,URINE 1+ (NEGATIVE)
[2020-03-08 17:47] LABS: BACTERIA,URINE TRACE /HPF
[2020-03-08] MEDS ORDERED: LACTATED RINGERS 1,000 ML IV ONE (18:45)
--- NOTE | 2020-03-08 18:46 | ED General ---
General Chief Complaint: Respiratory Problems Stated Complaint: SOA Nursing Triage Note: pt presents to ed with complaints of soa with exertion, and lower back pain. pt also reports dereased appetite. Nursing Sepsis Screen: No Definite Risk Source of Information: Patient, Old Records Exam Limitations: No Limitations (HENRY ROSE MD) History of Present Illness Date Seen by Provider: Mar 08, 2020 Time Seen by Provider: 15:35 Initial Comments This 74-year-old woman presents to the emergency room with primary complaints of dyspnea on exertion, lower backache, loss of appetite, lightheadedness, and generalized weakness for about the past 6 days. She has had a slight cough. She denies fever. She has multiple chronic illnesses including coronary artery disease, lupus, and chronic kidney disease. She is on chronic steroid therapy due to her lupus. She denies any Covid exposures. She reports recently being treated for urinary tract infection and then developing diarrhea due to the antibiotics. She has had very little to eat over the past for 5 days and therefore has not had many stools. She denies chest pain. Blood pressures are soft during initial assessment. (HENRY ROSE MD) Allergies and Home Medications Allergies Coded Allergies: No Known Drug Allergies (Verified , 10/21/08) Home Medications Apixaban 2.5 Mg Tablet, 2.5 MG PO BID, (Reported) Aspirin 81 Mg Tablet.dr, 81 MG PO DAILY Prescribed by: SERINA DEL REAL on 01/27/201127 Atorvastatin Calcium 20 Mg Tablet, 20 MG PO HS, (Reported) Cefdinir 300 Mg Capsule, 300 MG PO BID Prescribed by: SERINA DEL REAL on 01/27/201127 Clopidogrel Bisulfate 75 Mg Tablet, 75 MG PO DAILY, (Reported) Gabapentin 100 Mg Capsule, 100 MG PO HS, (Reported) Gabapentin 100 Mg Capsule, 200 MG PO DAILY, (Reported) TAKES 2 (100MG) TABLETS Hydrocodone/Acetaminophen 1 Each Tablet, 1 EA PO TID PRN for PAIN-MODERATE (5- 7), (Reported) Hydroxychloroquine Sulfate 200 Mg Tablet, 400 MG PO DAILY, (Reported) TAKES 2 (200MG) TABS Isosorbide Mononitrate 30 Mg Tab.er.24h, 30 MG PO DAILY, (Reported) Lisinopril 10 Mg Tablet, 10 MG PO DAILY, (Reported) Metoprolol Succinate 100 Mg Tab.er.24h, 100 MG PO DAILY, (Reported) Nitroglycerin 0.3 Mg Tab.subl, 0.3 MG SL PRN PRN for CHEST PAIN (ANGINA), (Reported) Prednisone 10 Mg Tab, 10 MG PO DAILY, (Reported) Vilazodone Hydrochloride 20 Mg Tablet, 20 MG PO DAILY, (Reported) Patient Home Medication List Home Medication List Reviewed: Yes (HENRY ROSE MD) Home Medication List Reviewed: Yes (ERIC MILTON MD) Review of Systems Review of Systems Constitutional: see HPI EENTM: no symptoms reported Respiratory: see HPI Cardiovascular: see HPI Gastrointestinal: see HPI Genitourinary: no symptoms reported : No Musculoskeletal: no symptoms reported Skin: no symptoms reported Psychiatric/Neurological: No Symptoms Reported Hematologic/Lymphatic: No Symptoms Reported (HENRY ROSE MD) Past Veyiise-Tpuxpx-Mshsmm Hx Past Med/Social Hx: Reviewed Nursing Past Med/Soc Hx (HENRY ROSE MD) Patient Social History Alcohol Use: Denies Use Recreational Drug Use: No Smoking Status: Current Everyday Smoker Type Used: Cigarettes 2nd Hand Smoke Exposure: Yes Recent Foreign Travel: No Contact w/Someone Who Travel: No Recent Infectious Disease Expo: No Recent Hopitalizations: No Physical Abuse: No Sexual Abuse: No Mistreated: No Fear: No (HENRY ROSE MD) Immunizations Up To Date Tetanus Booster (TDap): Less than 5yrs PED Vaccines UTD: No Date of Pneumonia Vaccine: Feb 21, 2019 Date of Influenza Vaccine: Feb 21, 2019 (HENRY ROSE MD) Seasonal Allergies Seasonal Allergies: No (HENRY ROSE MD) Past Medical History Surgeries: Yes (MODIFIED RADICAL VULVECTOMY 1991/CHOLECYSTECTOMY) Abdominal, Adenoidectomy, Cardiac, Coronary Stent, Gallbladder, Hysterectomy, Oophorectomy, Orthopedic, Tonsillectomy Respiratory: Yes Pneumonia Currently Using CPAP: No Currently Using BIPAP: No Cardiac: Yes (history of aortic thrombus, gangrene of the toes) Coronary Artery Disease, High Cholesterol, Hypertension Neurological: Yes Neuropathy, Stroke 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 Disorders: Yes (HX OF VULVAR CA--MODIFIED RADICAL VULVECTOMY 1991) 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 Disorders: Denies [employer]ING [employer] History: Hysterectomy Sexually Transmitted Disease: No HIV/AIDS: No Genitourinary: Yes (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) Renal Failure Gastrointestinal: Yes Chronic Diarrhea, Gall Bladder Disease Musculoskeletal: Yes Arthritis, Fibromyalgia Endocrine: Yes Lupus HEENT: No Loss of Vision: Left Hearing Impairment: Denies Cancer: Yes Cervical, Vaginal Did You Recieve Any Treatments: Yes What Type of Treatment Did You: Chemotherapy, Radiation, Surgical Intervention Psychosocial: Yes Anxiety Integumentary: Yes (History of "gangrene" of the toes.) Blood Disorders: No Adverse Reaction/Blood Tranf: No (HENRY ROSE MD) Family Medical History Arthritis 19 FATHER 19 MOTHER Cardiovascular disease 19 MOTHER Completed stroke 19 MOTHER maternal grandmother Congenital heart disease 19 MOTHER Diabetes mellitus 19 MOTHER maternal grandmother Hypercholesterolemia 19 MOTHER maternal grandmother Hypertension 19 MOTHER maternal grandmother Myocardial infarction maternal grandmother Tuberculosis paternal great grandfather No Pertinent Family Hx (HENRY ROSE MD) Physical Exam Vital Signs Vital Signs - First Documented 03/08/20 15:42 Temp 36.6 Pulse 109 Resp 18 B/P (MAP) 95/47 (63) Pulse Ox 98 (ERIC MILTON MD) Vital Signs Capillary Refill : Less Than 3 Seconds (HENRY ROSE MD) Height, Weight, BMI Height: 5'0.00" Weight: 161lbs. 0oz. 73.304861ys; 25.00 BMI Method:Stated General Appearance: No Apparent Distress, WD/WN HEENT: PERRL/EOMI, Normal ENT Inspection, Other (Oropharynx somewhat dry) Neck: Normal Inspection Respiratory: Lungs Clear, Normal Breath Sounds, No Accessory Muscle Use, No Respiratory Distress Cardiovascular: No Edema, No Murmur, Tachycardia Gastrointestinal: Normal Bowel Sounds, Non Tender, Soft Extremity: No Pedal Edema, Other (Multiple toes are dusky purple in appearance but have capillary refill of less than 5 seconds.) (HENRY ROSE MD) Focused Exam Lactate Level 03/08/20 15:30: Lactic Acid Level 3.72*H 03/08/20 17:38: Lactic Acid Level 1.45 (ERIC MILTON MD) Lactic Acid Level Laboratory Tests Test 03/08/20 17:38 Lactic Acid Level 1.45 MMOL/L (0.50-2.00) (ERIC MILTON MD) Progress/Results/Core Measures Suspected Sepsis Recent Fever Within 48 Hours: No Infection Criteria Present: Suspected New Infection New/Unexplained Altered Menta: No Sepsis Screen: No Definite Risk SIRS Temperature: Pulse: 109 Respiratory Rate: 18 Laboratory Tests 03/08/20 15:30: White Blood Count 16.1H Blood Pressure 95 /47 Mean: 63 03/08/20 15:30: Lactic Acid Level 3.72*H 03/08/20 17:38: Lactic Acid Level 1.45 Laboratory Tests 03/08/20 15:30: Creatinine 2.80H, INR Comment 1.6H, Platelet Count 271, Total Bilirubin 0.9 (HENRY ROSE MD) Results/Orders Lab Results Laboratory Tests Test 03/08/20 15:30 03/08/20 15:34 03/08/20 17:02 03/08/20 17:38 Range/Units White Blood Count 16.1 H 4.3-11.0 10^3/uL Red Blood Count 3.84 3.80-5.11 10^6/uL Hemoglobin 10.8 L 11.5-16.0 g/dL Hematocrit 35 35-52 % Mean Corpuscular Volume 91 80-99 fL Mean Corpuscular Hemoglobin 28 25-34 pg Mean Corpuscular Hemoglobin Concent 31 L 32-36 g/dL Red Cell Distribution Width 15.8 H 10.0-14.5 % Platelet Count 271 130-400 10^3/uL Mean Platelet Volume 12.0 9.0-12.2 fL Immature Granulocyte % (Auto) 1 % Neutrophils (%) (Auto) 90 H 42-75 % Lymphocytes (%) (Auto) 4 L 12-44 % Monocytes (%) (Auto) 5 0-12 % Eosinophils (%) (Auto) 0 0-10 % Basophils (%) (Auto) 0 0-10 % Neutrophils # (Auto) 14.5 H 1.8-7.8 10^3/uL Lymphocytes # (Auto) 0.6 L 1.0-4.0 10^3/uL Monocytes # (Auto) 0.9 0.0-1.0 10^3/uL Eosinophils # (Auto) 0.0 0.0-0.3 10^3/uL Basophils # (Auto) 0.0 0.0-0.1 10^3/uL Immature Granulocyte # (Auto) 0.1 0.0-0.1 10^3/uL Neutrophils % (Manual) 90 % Lymphocytes % (Manual) 5 % Monocytes % (Manual) 3 % Eosinophils % (Manual) 1 % Basophils % (Manual) 1 % Blood Morphology Comment NORMAL Prothrombin Time 19.2 H 12.2-14.7 SEC INR Comment 1.6 H 0.8-1.4 Activated Partial Thromboplast Time 37 H 24-35 SEC Sodium Level 136 135-145 MMOL/L Potassium Level 4.2 3.6-5.0 MMOL/L Chloride Level 105 98-107 MMOL/L Carbon Dioxide Level 16 L 21-32 MMOL/L Anion Gap 15 H 5-14 MMOL/L Blood Urea Nitrogen 30 H 7-18 MG/DL Creatinine 2.80 H 0.60-1.30 MG/DL Estimat Glomerular Filtration Rate 17 BUN/Creatinine Ratio 11 Glucose Level 107 H 70-105 MG/DL Lactic Acid Level 3.72 *H 1.45 0.50-2.00 MMOL/L Calcium Level 8.7 8.5-10.1 MG/DL Corrected Calcium 9.2 8.5-10.1 MG/DL Magnesium Level 1.5 L 1.6-2.4 MG/DL Total Bilirubin 0.9 0.1-1.0 MG/DL Aspartate Amino Transf (AST/SGOT) 13 5-34 U/L Alanine Aminotransferase (ALT/SGPT) 10 0-55 U/L Alkaline Phosphatase 87 40-136 U/L Lactate Dehydrogenase 263 H 125-220 U/L Troponin I 0.118 H <0.028 NG/ML C-Reactive Protein High Sensitivity 7.89 H 0.00-0.50 MG/DL Total Protein 6.4 6.4-8.2 GM/DL Albumin 3.4 3.2-4.5 GM/DL Procalcitonin 0.45 H <0.10 NG/ML Coronavirus 2019 (APPLE) Negative Negative Urine Color YELLOW Urine Clarity CLEAR Urine pH 5.0 5-9 Urine Specific [place] >=1.030 1.016-1.022 Urine Protein 1+ H NEGATIVE Urine Glucose (UA) NEGATIVE NEGATIVE Urine Ketones NEGATIVE NEGATIVE Urine Nitrite NEGATIVE NEGATIVE Urine Bilirubin NEGATIVE NEGATIVE Urine Urobilinogen 1.0 < = 1.0 MG/DL Urine Leukocyte Esterase NEGATIVE NEGATIVE Urine RBC (Auto) NEGATIVE NEGATIVE Urine RBC NONE /HPF Urine WBC 2-5 /HPF Urine Squamous Epithelial Cells 10-25 H /HPF Urine Crystals NONE /LPF Urine Bacteria TRACE /HPF Urine Casts NONE /LPF Urine Mucus NEGATIVE /LPF Urine Culture Indicated CULTURE PENDING (ERIC MILTON MD) Micro Results Microbiology 03/08/20 Influenza Types A,B Antigen (TEE) - Final, Complete (ERIC MILTON MD) My Orders Orders - ERIC MILTON MD Piperacillin/Tazobactam (Bulk) (Zosyn In (03/08/20 20:15) Azithromycin Injection (Zithromax Inject (03/08/20 20:15) (ERIC MILTON MD) Medications Given in ED Current Medications Medications Dose Ordered Sig/Kenneth Route Start Time Stop Time Status Last Admin Dose Admin Lactated Ringer's 1,000 ml @ 0 mls/hr Q0M ONCE IV 03/08/20 18:45 03/08/20 18:46 DC 03/08/20 19:02 0 MLS/HR (ERIC MILTON MD) Vital Signs/I&O 03/08/20 15:42 Temp 36.6 Pulse 109 Resp 18 B/P (MAP) 95/47 (63) Pulse Ox 98 (ERIC MILTON MD) Vital Signs/I&O Capillary Refill : Less Than 3 Seconds (HENRY ROSE MD) Blood Pressure Mean: 63 Progress Note : Time: 18:41 Progress Note Work-up revealed a leukocytosis and elevated CRP but no specific source of infection. Chest x-ray and urinalysis were unremarkable. Rapid Covid and influenza swabs were negative. Patient received a liter of IV fluid. This did improve her blood pressure and heart rate. However, when obtaining a repeat standing heart rate it increased from the 80s to the 120s. Systolic blood pressure remained stable at 119. Patient reiterates that her primary concern is dyspnea on exertion and lightheadedness. She did have history of stent placement earlier this year. I believe it would be prudent at this time to obtain an EKG and troponin. We will also give her a second liter of IV fluid as she appeared orthostatic with the tachycardia upon standing. Care of this patient has been discussed with Dr. Milton and she will reviewed the EKG and troponin as well as determine disposition after further IV fluids. Patient is very reluctant to take antibiotics at this time without a definite source of infection as she developed significant diarrhea after her last round of antibiotics. (HENRY ROSE MD) Progress Note : Time: 20:03 Progress Note Case discussed with Dr. Del Real on for [facility]. She is requesting the patient be placed on Zosyn and erythromycin with a chest x-ray in the morning. Consultation with Dr. Solitario. After reviewing her medication list I have discovered that the patient is on Plavix and Eliquis as well as baby aspirin daily. Dr. Solitario states that she does not need any further anticoagulation and that those medications would be perfect for her. Patient's vital signs are stable as she is laying in the bed. She states she is actually feeling a little bit better. We will get her tucked into trend her cardiac enzymes over the course of the next 24 hours. Further management per Dr. Del Real and Dr. Solitario. (ERIC MILTON MD) Diagnostic Imaging Diagonstic Imaging: Xray Plain Films/CT/US/NM/MRI: chest Comments NAME: EUGENIO PARKER [facility] REC#: [id number] PT STATUS: REG ER : 1945 PHYSICIAN: HENRY ROSE MD ADMIT DATE: 03/08/20/ER Signed Date of Exam:03/08/20 CHEST 1 VIEW, AP/PA ONLY INDICATION: Sepsis, shortness of breath Portable chest 3:59 PM Heart size and pulmonary vascularity are normal. Lungs are clear. There are no effusions or pneumothoraces. IMPRESSION: No acute abnormalities in the chest. Dictated by: Dictated on workstation # [id number] Dict: 03/08/20 1555 Trans: 03/08/20 2831 CV [id number] Interpreted by: SUJATA DOUGLAS MD Electronically signed by: SUJATA DOUGLAS MD 03/08/20 7718 Reviewed: Reviewed by Me (HENRY ROSE MD) Departure Communication (Admissions) Time/Spoke to Admitting Phy: 19:[address] Del Real accepts patient for admission with consultation to Dr. Solitario Time/Spoke to Consulting Phy: 20:[address] Solitario. Is comfortable with leaving the patient on her Eliquis 2.5 mg twice daily, baby aspirin and Plavix for anticoagulation at this time. (ERIC MILTON MD) Impression Primary Impression: Orthostatic dizziness Additional Impressions: Dyspnea Qualified Codes: R06.00 - Dyspnea, unspecified Elevated troponin Dehydration Disposition: ADMITTED INPATIENT Condition: Stable Admissions Decision to Admit Reason: Admit from ER (General) Decision to Admit/Date: Mar 08, 2020 Time/Decision to Admit Time: 19:59 (ERIC MILTON MD) Departure-Patient Inst. [facility] [facility] [place]) Primary Care Physician CHRISTA GLORIA (Family) Primary Care Physician Copy Copies To 1: SERINA DEL REAL JOSHUA T MD Mar 08, 2020 18:46 ERIC MILTON MD Mar 08, 2020 20:00
[2020-03-08 18:59] LABS: MAGNESIUM 1.5 MG/DL (1.6-2.4)
[2020-03-08] MEDS ORDERED: DOCUSATE SODIUM 100 MG (COLACE) CAP PO PRN (20:15)
[2020-03-08] MEDS ORDERED: MELATONIN 3 MG TABLET PO PRN (20:15)
[2020-03-08] MEDS ORDERED: CALCIUM CARBONATE 500 MG (TUMS) TAB.CHEW PO PRN (20:15)
[2020-03-08] MEDS ORDERED: HYDROmorphone 2 MG/ML VIAL (DILAUDID) IVP PRN (20:15)
[2020-03-08] MEDS ORDERED: ALPRAZolam 0.25 MG (XANAX) TAB PO PRN (20:15)
[2020-03-08] MEDS ORDERED: PIPERACILLIN/TAZOBACTAM (BULK) 4.5 GM in NS (IVPB) 100 ML IV ONE (20:15)
[2020-03-08] MEDS ORDERED: ONDANSETRON 4 MG/2 ML (SDV) Z0FRAN IVP PRN (20:15)
[2020-03-08] MEDS ORDERED: VANCOMYCIN INJECTION 0.1 MG in NS (IVPB) 250 ML IV SCH (20:15)
[2020-03-08] MEDS ORDERED: HYDROcodone/APAP 5 MG/325 MG (LORTAB) TAB PO PRN (20:15)
[2020-03-08] MEDS ORDERED: ACETAMINOPHEN 500 MG TAB (TYLENOL) PO PRN (20:15)
[2020-03-08] MEDS ORDERED: AZITHROMYCIN INJECTION 500 MG in NS (IVPB) 250 ML IV ONE (20:15)
[2020-03-08] MEDS ORDERED: BISACODYL 10 MG SUPP (DULCOLAX) PR PRN (20:15)
[2020-03-08] MEDS ORDERED: guaiFENesin/CODEINE (ROBITUSSIN AC) 10ML UDC PO PRN (20:15)
[2020-03-08] MEDS ORDERED: diphenhydrAMINE 25 MG TAB (BENADRYL) PO PRN (20:15)
[2020-03-08] MEDS ORDERED: PIPERACILLIN/TAZO 4.5 GM VIAL (ZOSYN) IV ONE (20:18)
[2020-03-08] MEDS ORDERED: NS (IVPB) 250 ML ONE (20:18)
[2020-03-08] MEDS ORDERED: AZITHROMYCIN INJECTION 500 MG/5 ML VIAL ONE (20:19)
[2020-03-08] MEDS ORDERED: NS (IVPB) 100 ML ONE (20:27)
[2020-03-08] MEDS ORDERED: VANCOMYCIN 1 GM/NS 250 ML IVPB IV NR ×2 (20:30)
[2020-03-08] MEDS ORDERED: ONDANSETRON 4 MG/2 ML (SDV) Z0FRAN IVP ONE (21:00)
--- NOTE | 2020-03-08 21:25 | NUR ---
EUGENIO PARKER admitted to room 405-1, with an admitting diagnosis of ELEVATED TROPONIN, DYSPNEA, DEHYDRATION, LEUKOCYTOSIS, on 03/08/20 from ED via , accompanied by STAFF.EUGENIO PARKER introduced to surroundings, call light, bed controls, phone, TV, temperature control, lights, meal times, smoking policy, visitor policy, side rail policy, bathrooms and showers. Patient Rights given to patient in the handbook.EUGENIO PARKER verbalizes understanding that [facility] is not responsible for the loss or damage to any personal effects or valuables that are kept in the patients posession during their hospitalization.
[2020-03-08 21:28] VITALS: BP 104/65
[2020-03-08] MEDS ORDERED: CATHETER FLUSH 10 ML SYR IV PRN (21:45)
[2020-03-08] MEDS: CATHETER FLUSH 10 ML SYR IV SCH (22:00)
[2020-03-08] MEDS: GABAPENTIN 100 MG (NEURONTIN) CAP PO SCH (22:20)
[2020-03-08] MEDS: SENNA W/DOCUSATE (SENOKOT S) TABLET PO SCH (22:20)
[2020-03-08] MEDS: APIXABAN 2.5 MG (ELIQUIS) TABLET PO SCH (22:20)
[2020-03-09 00:12] VITALS: BP 111/56
[2020-03-09] MEDS: NS IV 1000 ML 1,000 ML IV SCH ×2 (01:27→22:35)
[2020-03-09] MEDS ORDERED: PIPERACILLIN/TAZOBACTAM (BULK) 4.5 GM in NS (IVPB) 100 ML IV SCH (03:00)
[2020-03-09 04:08] VITALS: BP 112/53
--- NOTE | 2020-03-09 05:53 | History & Physical-Hospitalist ---
History of Present Illness HPI/Chief Complaint CC: Dyspnea HPI: This is a 74 yoWF known to me from recent hospital stay 01/24/20 for UTI who has a h/o CAD, CRI, COPD, AF and a multitude of other debilities who presents to the ER with complaints of dyspnea. COVID rapid was negative and PCR pending. PPE used in interview. Patient reports feeling about the same as she did when she was admitted and is currently using O2. No pain reported. Home meds restarted. PT OT will be consulted and Cardiology will see her. Source: patient Exam Limitations: no limitations Date Seen 03/09/20 Time Seen by a Provider: 10:00 Attending Physician Slime Mosquera DO [facility] Referring Physician Date of Admission Mar 08, 2020 at 20:06 Home Medications & Allergies Home Medications Reviewed patient Home Medication Reconciliation performed by pharmacy medication reconciliations medical service technician and/or nursing. Patients Allergies have been reviewed. Allergies Allergies Coded Allergies No Known Drug Allergies (Verified10/21/08) Past Lethgpl-Ocwilf-Qwqwlv Hx Past Med/Social Hx: Reviewed Nursing Past Med/Soc Hx, Reviewed and Corrections made Patient Social History Marrital Status: single Employed/Student: retired Alcohol Use: Denies Use Recreational Drug Use: No Smoking Status: Current Everyday Smoker Type Used: Cigarettes 2nd Hand Smoke Exposure: Yes Recent Foreign Travel: No Contact w/other who traveled: No Recent Hopitalizations: No Recent Infectious Disease Expo: No Immunizations Up To Date Tetanus Booster (TDap): Less than 5yrs Pediatric: No Date of Pneumonia Vaccine: Feb 21, 2019 Date of Influenza Vaccine: Jan 25, 2019 Seasonal Allergies Seasonal Allergies: No Past Medical History Surgeries: Abdominal, Adenoidectomy, Cardiac, Coronary Stent, Gallbladder, Hysterectomy, Oophorectomy, Orthopedic, Tonsillectomy Respiratory: COPD Currently Using CPAP: No Currently Using BIPAP: No Cardiac: Coronary Artery Disease, High Cholesterol, Hypertension Neurological: Neuropathy, Stroke 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: Yes (HX OF VULVAR CA--MODIFIED RADICAL VULVECTOMY 1991) Sexually Transmitted Disease: No HIV/AIDS: No 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 Disorders: Denies Hysterectomy Genitourinary: Renal Failure Gastrointestinal: Chronic Diarrhea, Gall Bladder Disease Musculoskeletal: Arthritis, Fibromyalgia Endocrine: Lupus Loss of Vision: Left Hearing Impairment: Denies Cancer: Cervical, Vaginal Did You Recieve Any Treatments: Yes What Type of Treatment Did You: Chemotherapy, Radiation, Surgical Intervention Psychosocial: Anxiety History of Blood Disorders: No Adverse Reaction to Blood [place]: No Family History Arthritis 19 FATHER 19 MOTHER Cardiovascular disease 19 MOTHER Completed stroke 19 MOTHER maternal grandmother Congenital heart disease 19 MOTHER Diabetes mellitus 19 MOTHER maternal grandmother Hypercholesterolemia 19 MOTHER maternal grandmother Hypertension 19 MOTHER maternal grandmother Myocardial infarction maternal grandmother Tuberculosis paternal great grandfather No Pertinent Family Hx Review of Systems Constitutional: see HPI, weakness Respiratory: dyspnea on exertion Physical Exam Physical Exam Vital Signs Vital Signs - First Documented 03/08/20 03/08/20 15:42 20:46 Temp 36.6 Pulse 109 Resp 18 B/P (MAP) 95/47 (63) Pulse Ox 98 O2 Delivery Room Air Capillary Refill : Less Than 3 Seconds Height, Weight, BMI Height: 5'0.00" Weight: 161lbs. 0oz. 73.907866ol; 24.99 BMI Method:Stated General Appearance: No Apparent Distress, Chronically ill Eyes: Right Eye Normal Inspection, Right Eye PERRL HEENT: PERRL/EOMI, Normal ENT Inspection, Pharynx Normal, Moist Mucous Membranes Neck: Full Range of Motion, Normal Inspection, Non Tender Respiratory: Chest Non Tender, Lungs Clear, No Accessory Muscle Use, No Respiratory Distress, Decreased Breath Sounds Cardiovascular: Regular Rate, Rhythm, No Edema, No Gallop, No JVD, No Murmur, Normal Peripheral Pulses Gastrointestinal: Normal Bowel Sounds, No Organomegaly, No Pulsatile Mass, Non Tender, Soft Back: Normal Inspection, No CVA Tenderness, No Vertebral Tenderness Extremity: Normal Capillary Refill, Normal Inspection, Normal Range of Motion, Non Tender, No Calf Tenderness, No Pedal Edema Neurologic/Psychiatric: Alert, Oriented x3, No Motor/Sensory Deficits, Normal Mood/Affect Skin: Normal Color, Warm/Dry Lymphatic: No Adenopathy Results Results/Procedures Labs Laboratory Tests 03/08/20 15:30 03/09/20 06:30 Patient resulted labs reviewed. Assessment/Plan Admission Diagnosis Assessment: Dyspnea COVID rapid negative but PCR pending UTI Elevated LA AF OAC CRI TRAE CHF COPD Plan: IV abx COVID OAC Cardiology Admission Status: Inpatient Order (span 2 midnights) Reason for Inpatient Admission: dyspnea and acute on CRF Diagnosis/Problems Diagnosis/Problems (1) Dyspnea Status: Acute Qualifiers: Dyspnea type: dyspnea on exertion Qualified Codes: R06.00 - Dyspnea, unspecified (2) Leukocytosis (3) CAD (coronary artery disease) (4) UTI (urinary tract infection) Status: Acute (5) DVT prophylaxis Status: Acute (6) Lupus (systemic lupus erythematosus) Status: Chronic (7) Hypertension Status: Chronic (8) Hyperlipidemia Status: Chronic Clinical Quality Measures DVT/VTE Risk/Contraindication: Risk Factor Score Per Nursin RFS Level Per Nursing on Admit: 4+=Very High SLIME MOSQUERA DO Mar 09, 2020 05:53
[2020-03-09] MEDS: CATHETER FLUSH 10 ML SYR IV SCH ×2 (06:09→21:16)
[2020-03-09 06:49] LABS: BASOPHILS % (AUTO) 0 % (0-10); EOSINOPHILS # (AUTO) 0.2 10^3/uL (0.0-0.3); EOSINOPHILS % (AUTO) 3 % (0-10); HEMATOCRIT 28 % (35-52); HEMOGLOBIN 8.6 g/dL (11.5-16.0); LYMPHOCYTES # (AUTO) 1.6 10^3/uL (1.0-4.0); LYMPHOCYTES % (AUTO) 22 % (12-44); MEAN CORPUSCULAR HEMOGLOBIN 28 pg (25-34); MEAN CORPUSCULAR HGB CONC 30 g/dL (32-36); MEAN CORPUSCULAR VOLUME 92 fL (80-99); MEAN PLATELET VOLUME 11.9 fL (9.0-12.2); MONOCYTES # (AUTO) 0.5 10^3/uL (0.0-1.0); MONOCYTES % (AUTO) 7 % (0-12); NEUTROPHILS # (AUTO) 4.9 10^3/uL (1.8-7.8); NEUTROPHILS % (AUTO) 67 % (42-75); PLATELET COUNT 228 10^3/uL (130-400); WHITE BLOOD COUNT 7.3 10^3/uL (4.3-11.0)
[2020-03-09 07:11] LABS: ALBUMIN 2.8 GM/DL (3.2-4.5); BILIRUBIN,TOTAL 0.6 MG/DL (0.1-1.0); CALCIUM 7.7 MG/DL (8.5-10.1); CREATININE SERUM 2.45 MG/DL (0.60-1.30); POTASSIUM 3.7 MMOL/L (3.6-5.0); TOTAL PROTEIN 5.2 GM/DL (6.4-8.2)
[2020-03-09 08:20] VITALS: BP 130/66
[2020-03-09] MEDS ORDERED: NON-FORMULARY MEDICATION 1 EA EA (Vilazodone Hydrochloride (Viibryd) 20 MG) PO SCH (09:00)
[2020-03-09] MEDS: APIXABAN 2.5 MG (ELIQUIS) TABLET PO SCH ×2 (10:34→21:15)
[2020-03-09] MEDS: GABAPENTIN 100 MG (NEURONTIN) CAP PO SCH ×2 (10:35→21:15)
[2020-03-09] MEDS: CLOPIDOGREL 75 MG (PLAVIX) TABLET PO SCH (10:35)
[2020-03-09] MEDS: ISOSORBIDE MONONITRATE 30 MG (IMDUR) TAB PO SCH (10:36)
[2020-03-09] MEDS: meTOprolol SUCCINATE 100 MG (TOPROL XL) TAB PO SCH (10:36)
[2020-03-09] MEDS: ASPIRIN E.C. 81 MG (ECOTRIN) TAB PO SCH (10:36)
[2020-03-09] MEDS: PIPERACILLIN/TAZOBACTAM (BULK) 4.5 GM in NS (IVPB) 100 ML IV SCH ×3 (10:37→22:34)
[2020-03-09] MEDS: HYDROXYCHLOROQUINE 200 MG (PLAQUENIL) TAB PO SCH (10:42)
[2020-03-09] MEDS: SENNA W/DOCUSATE (SENOKOT S) TABLET PO SCH ×2 (10:45→20:42)
[2020-03-09 12:30] VITALS: BP 136/56
--- NOTE | 2020-03-09 12:31 | NUR ---
Received dietary consult for MST score. Note pt is currently COVID PUI, per chart review. Will monitor PO intake and have full assessment, pending results. Andrew Bell MS RD LD [phone] cell
--- NOTE | 2020-03-09 12:55 | Consultation-Cardiology ---
HPI-Cardiology Cardiology Consultation Date of Consultation 03/09/20 Date of Admission Time Seen by Provider: 12:49 Indication: shortness of breath HPI 74-year-old lady with history of hypertension, coronary artery disease, admitted for increasing weakness and fatigue, having weakness in her legs, shortness of breath on exertion and lower back pain. No syncope was reported. No chest pain. Has been having worsening dyspnea on exertion. Patient was discharged recently from the hospital, did not follow-up with her primary care physician due to lack of transportation Home Medications & Allergies Allergies: Coded Allergies: No Known Drug Allergies (Verified , 10/21/08) Home Medication List Reviewed: Yes [id number]-Irjjrn Hx Patient Social History Alcohol Use: Denies Use Recreational Drug Use: No Smoking Status: Current Everyday Smoker Type Used: Cigarettes 2nd Hand Smoke Exposure: Yes Recent Foreign Travel: No Recent Infectious Disease Expo: No Recent Hopitalizations: No Immunizations Up To Date Tetanus Booster (TDap): Less than 5yrs Date of Pneumonia Vaccine: Feb 21, 2019 Date of Influenza Vaccine: Jan 25, 2019 Past Medical History discussed below Family Medical History Significant Family History: No Pertinent Family Hx Family History: Arthritis 19 FATHER 19 MOTHER Cardiovascular disease 19 MOTHER Completed stroke 19 MOTHER maternal grandmother Congenital heart disease 19 MOTHER Diabetes mellitus 19 MOTHER maternal grandmother Hypercholesterolemia 19 MOTHER maternal grandmother Hypertension 19 MOTHER maternal grandmother Myocardial infarction maternal grandmother Tuberculosis paternal great grandfather Review of Systems-General Review of Systems Constitutional: see HPI, malaise, weakness EENTM: see HPI, no symptoms reported Respiratory: see HPI; No cough; dyspnea on exertion; No hemoptysis, No orthopnea, No phlegm, No short of breath, No stridor, No wheezing, No other Cardiovascular: see HPI; No chest pain; edema; No Hx of Intervention, No palpitations, No syncope, No vascular heart diseas, No other Gastrointestinal: see HPI Genitourinary: no symptoms reported, see HPI : No Musculoskeletal: see HPI, back pain, joint pain Skin: no symptoms reported, see HPI Psychiatric/Neurological: No Symptoms Reported Reviewed Test Results Reviewed Test Results Lab Laboratory Tests Test 03/08/20 15:30 03/08/20 15:34 03/08/20 17:02 03/08/20 17:38 Range/Units White Blood Count 16.1 H 4.3-11.0 10^3/uL Red Blood Count 3.84 3.80-5.11 10^6/uL Hemoglobin 10.8 L 11.5-16.0 g/dL Hematocrit 35 35-52 % Mean Corpuscular Volume 91 80-99 fL Mean Corpuscular Hemoglobin 28 25-34 pg Mean Corpuscular Hemoglobin Concent 31 L 32-36 g/dL Red Cell Distribution Width 15.8 H 10.0-14.5 % Platelet Count 271 130-400 10^3/uL Mean Platelet Volume 12.0 9.0-12.2 fL Immature Granulocyte % (Auto) 1 % Neutrophils (%) (Auto) 90 H 42-75 % Lymphocytes (%) (Auto) 4 L 12-44 % Monocytes (%) (Auto) 5 0-12 % Eosinophils (%) (Auto) 0 0-10 % Basophils (%) (Auto) 0 0-10 % Neutrophils # (Auto) 14.5 H 1.8-7.8 10^3/uL Lymphocytes # (Auto) 0.6 L 1.0-4.0 10^3/uL Monocytes # (Auto) 0.9 0.0-1.0 10^3/uL Eosinophils # (Auto) 0.0 0.0-0.3 10^3/uL Basophils # (Auto) 0.0 0.0-0.1 10^3/uL Immature Granulocyte # (Auto) 0.1 0.0-0.1 10^3/uL Neutrophils % (Manual) 90 % Lymphocytes % (Manual) 5 % Monocytes % (Manual) 3 % Eosinophils % (Manual) 1 % Basophils % (Manual) 1 % Blood Morphology Comment NORMAL Prothrombin Time 19.2 H 12.2-14.7 SEC INR Comment 1.6 H 0.8-1.4 Activated Partial Thromboplast Time 37 H 24-35 SEC Sodium Level 136 135-145 MMOL/L Potassium Level 4.2 3.6-5.0 MMOL/L Chloride Level 105 98-107 MMOL/L Carbon Dioxide Level 16 L 21-32 MMOL/L Anion Gap 15 H 5-14 MMOL/L Blood Urea Nitrogen 30 H 7-18 MG/DL Creatinine 2.80 H 0.60-1.30 MG/DL Estimat Glomerular Filtration Rate 17 BUN/Creatinine Ratio 11 Glucose Level 107 H 70-105 MG/DL Lactic Acid Level 3.72 *H 1.45 0.50-2.00 MMOL/L Calcium Level 8.7 8.5-10.1 MG/DL Corrected Calcium 9.2 8.5-10.1 MG/DL Magnesium Level 1.5 L 1.6-2.4 MG/DL Total Bilirubin 0.9 0.1-1.0 MG/DL Aspartate Amino Transf (AST/SGOT) 13 5-34 U/L Alanine Aminotransferase (ALT/SGPT) 10 0-55 U/L Alkaline Phosphatase 87 40-136 U/L Lactate Dehydrogenase 263 H 125-220 U/L Troponin I 0.118 H <0.028 NG/ML C-Reactive Protein High Sensitivity 7.89 H 0.00-0.50 MG/DL Total Protein 6.4 6.4-8.2 GM/DL Albumin 3.4 3.2-4.5 GM/DL Procalcitonin 0.45 H <0.10 NG/ML Coronavirus 2019 (APPLE) Negative Negative Urine Color YELLOW Urine Clarity CLEAR Urine pH 5.0 5-9 Urine Specific [place] >=1.030 1.016-1.022 Urine Protein 1+ H NEGATIVE Urine Glucose (UA) NEGATIVE NEGATIVE Urine Ketones NEGATIVE NEGATIVE Urine Nitrite NEGATIVE NEGATIVE Urine Bilirubin NEGATIVE NEGATIVE Urine Urobilinogen 1.0 < = 1.0 MG/DL Urine Leukocyte Esterase NEGATIVE NEGATIVE Urine RBC (Auto) NEGATIVE NEGATIVE Urine RBC NONE /HPF Urine WBC 2-5 /HPF Urine Squamous Epithelial Cells 10-25 H /HPF Urine Crystals NONE /LPF Urine Bacteria TRACE /HPF Urine Casts NONE /LPF Urine Mucus NEGATIVE /LPF Urine Culture Indicated CULTURE PENDING Test 03/09/20 06:30 03/09/20 10:54 Range/Units White Blood Count 7.3 4.3-11.0 10^3/uL Red Blood Count 3.07 L 3.80-5.11 10^6/uL Hemoglobin 8.6 #L 11.5-16.0 g/dL Hematocrit 28 L 35-52 % Mean Corpuscular Volume 92 80-99 fL Mean Corpuscular Hemoglobin 28 25-34 pg Mean Corpuscular Hemoglobin Concent 30 L 32-36 g/dL Red Cell Distribution Width 15.9 H 10.0-14.5 % Platelet Count 228 130-400 10^3/uL Mean Platelet Volume 11.9 9.0-12.2 fL Immature Granulocyte % (Auto) 1 % Neutrophils (%) (Auto) 67 42-75 % Lymphocytes (%) (Auto) 22 12-44 % Monocytes (%) (Auto) 7 0-12 % Eosinophils (%) (Auto) 3 0-10 % Basophils (%) (Auto) 0 0-10 % Neutrophils # (Auto) 4.9 1.8-7.8 10^3/uL Lymphocytes # (Auto) 1.6 1.0-4.0 10^3/uL Monocytes # (Auto) 0.5 0.0-1.0 10^3/uL Eosinophils # (Auto) 0.2 0.0-0.3 10^3/uL Basophils # (Auto) 0.0 0.0-0.1 10^3/uL Immature Granulocyte # (Auto) 0.0 0.0-0.1 10^3/uL Sodium Level 140 135-145 MMOL/L Potassium Level 3.7 3.6-5.0 MMOL/L Chloride Level 113 H 98-107 MMOL/L Carbon Dioxide Level 18 L 21-32 MMOL/L Anion Gap 9 5-14 MMOL/L Blood Urea Nitrogen 28 H 7-18 MG/DL Creatinine 2.45 H 0.60-1.30 MG/DL Estimat Glomerular Filtration Rate 19 BUN/Creatinine Ratio 11 Glucose Level 68 L 70-105 MG/DL Calcium Level 7.7 L 8.5-10.1 MG/DL Corrected Calcium 8.7 8.5-10.1 MG/DL Total Bilirubin 0.6 0.1-1.0 MG/DL Aspartate Amino Transf (AST/SGOT) 13 5-34 U/L Alanine Aminotransferase (ALT/SGPT) 8 0-55 U/L Alkaline Phosphatase 74 40-136 U/L Troponin I 0.107 H <0.028 NG/ML B-Type Natriuretic Peptide 140.3 H <100.0 PG/ML Total Protein 5.2 L 6.4-8.2 GM/DL Albumin 2.8 L 3.2-4.5 GM/DL Triglycerides Level 88 <150 MG/DL Cholesterol Level 92 < 200 MG/DL LDL Cholesterol Direct 45 1-129 MG/DL VLDL Cholesterol 18 5-40 MG/DL HDL Cholesterol 26 L 40-60 MG/DL Procalcitonin 0.34 H <0.10 NG/ML Physical Exam Physical Exam Vital Signs Vital Signs - First Documented 03/08/20 03/08/20 15:42 20:46 Temp 36.6 Pulse 109 Resp 18 B/P (MAP) 95/47 (63) Pulse Ox 98 O2 Delivery Room Air Capillary Refill : Less Than 3 Seconds Height, Weight, BMI Height: 5'0.00" Weight: 161lbs. 0oz. [id number]; 24.99 BMI Method:Stated General Appearance: No Apparent Distress, WD/WN HEENT: PERRL/EOMI, Normal ENT Inspection, Other (Oropharynx somewhat dry) Neck: Normal Inspection Respiratory: Lungs Clear, Normal Breath Sounds, No Accessory Muscle Use, No Respiratory Distress Cardiovascular: No Edema, No Murmur, Tachycardia Gastrointestinal: Normal Bowel Sounds, Non Tender, Soft Extremity: No Pedal Edema, Other (Multiple toes are dusky purple in appearance but have capillary refill of less than 5 seconds.) A/P-Cardiology Admission Diagnosis generalized weakness Shortness of breath Hypertension Hyperlipidemia Assessment/Plan Generalized weakness and loss of energy, questionable underlying infection, had elevation of 20, workup is in progress, followed and managed by Dr. Mosquera Shortness of breath on exertion, increasing weakness and loss of energy. Has history of ischemic cardiomyopathy, last echocardiogram in April 2019 showed normal left ventricular function with EF 50-55 percent, mild mitral regurgitation, PA pressure 20 mmHg. Continue to monitor Chronic renal insufficiency, monitor renal function Mild elevation in troponin level, has coronary artery disease as described above, there is no active chest pain, no acute EKG changes. Probably her elevated troponin is type II myocardial infarction due to small vessel disease. Medical therapy is recommended no intervention is needed Coronary artery disease, had a cardiac catheterization done by Dr. Olvera in September 2019 with stenting of the circumflex artery using resolute 2.25 x 14 mm, patient had 90 percent stenosis in the posterior lateral branch of the right coronary artery that was treated medically. history of pericardial disease and ischemic foot ulcer. Hypertension, restart home medication and monitor blood pressure CVA with L homonymous hemianopsia - small to moderate-sized area of acute/subacute infarct involving the right occipital lobe. There is no evidence of intra-cranial hemorrhage, brain herniation, or midline shift on CT of the head on 07-15-18. Followed and managed with primary care physician Carotid artery disease - carotid u/s of 4-24-19, there is mod bilat carotid arterial plaque, worse (50-70% stenosis) on the right, continue to monitor Intolerant to warfarin due to wide variations in INR. Currently on apixaban H/O cervical cancer for which she has undergone chemo (last tx 12 years ago) H/O sleep apnea, non-compliant with CPAP tx HLD - statin tx followed by her PCP H/O sinus bradycardia and V-tach during ED visit in November 2017 - transferred to [facility] at that time Chronic diarrhea Reports chronic lymphedema to right leg Depression H/o lupus and gout (details unknown) followed and treated by pcp Family h/o CAD (son has had coronary stenting; mother has had CVA) Clinical Quality Measures DVT/VTE Risk/Contraindication: Risk Factor Score Per Nursin RFS Level Per Nursing on Admit: 4+=Very High NOEMÍ CARVALHO MD Mar 09, 2020 12:55
--- NOTE | 2020-03-09 15:31 | Physical Therapy Evaluation ---
PT Evaluation-General Medical Diagnosis Admission Date Mar 08, 2020 at 20:06 Medical Diagnosis: elevated troponin/dyspnea/PUI Onset Date: Mar 08, 2020 Therapy Diagnosis Therapy Diagnosis: debility Height/Weight Height (Feet): 5 Height (Inches): 0.00 Weight (Pounds): 161 Weight (Ounces): 0 Precautions Precautions/Isolations: Contact Isolation, Droplet Isolation Referral Physician: Eveline Reason for Referral: Evaluation/Treatment Medical History Pertinent Medical History: CAD, Heart Failure, HTN, Neuropathy Additional Medical History Lupus/cervical and vaginal cancer Current History ER with dyspnea with exertion Reviewed History: Yes Social History Home: Apartment Current Living Status: Children Entry Into Home: Stairs With Railing PT Steps Into Home: 1 Prior Prior Level of Function SCALE: Activities may be completed with or without assistive devices. 3-Gbfglwhlzq-zmwhdcy completes the activity by him/herself with no assistance from a helper. 5-Set-up or Clean-up Assistance-helper sets up or cleans up; patient completes activity. [place] assists only prior to or following the activity. 4-Supervision or Touching Assistance-helper provides verbal cues and/or touching/steadying and/or contact guard assistance as patient completes activity. Assistance may be provided throughout the activity or intermittently. 3-Partial/Moderate Assistance-helper does LESS THAN HALF the effort. [place] lifts, holds or supports trunk or limbs, but provides less than half the effort. 2-Substantial/Maximal Assistance-helper does MORE THAN HALF the effort. [place] lifts or holds trunk or limbs and provides more than half the effort. 6-Lecmvynox-sxmilr does ALL the effort. Patient does none of the effort to complete the activity. Or, the assistance of 2 or more helpers is required for the patient to complete the activity. If activity was not attempted, code reason: 7-Patient Refused. 9-Not Applicable-not attempted and the patient did not perform the activity before the current illness, exacerbation or injury. 10-Not Attempted due to Environmental Limitations-(lack of equipment, weather restraints, etc.). 88-Not Attempted due to Medical Conditions or Safety Concerns. Bed Mobility: 6 Transfers (B,C,W/C): 6 Gait: 6 Stairs: 6 Indoor Mobility (Ambulation): Independent Stairs: Independent Prior Device Use: occasionally uses SBQC per patient she "furniture surfs" at home and she's reports she's not going to change that. PT Evaluation-Current Subjective PT/OT cotreat. Patient states,"Let me do things myself. I can do it." Objective Patient Orientation: Normal For Age ROM/Strength ROM Lower Extremities bilateral LE WFL Strength Lower Extremities 4/5 grossly bilateral LE Integumentary/Posture Integumentary refer to nursing notes Bowel Incontinence: Yes Bladder Incontinence: Yes Posture WFL Neuromuscular (Tone, Coordination, Reflexes) grossly intact Sensory Vision: Functional Hearing: Functional Transfers Roll Left to Right (QC): 6 Sit to Lying (QC): 6 Lying to Sitting/Side of Bed(Q: 6 Chair/Xrf-qa-Bwkzu Xfer(QC): 6 Gait Does the Patient Walk?: Yes Mode of Locomotion: Walk Anticipated Mode of Locomotion: Walk Walk 10 feet (QC): 6 Distance: 30' x 2 Gait Assistive Device: None Comments/Gait Description functional gait sequence (patient declined FWW, SBQC and gait belt use with ambulation) Balance Sitting Static: Normal Sitting Dynamic: Normal Standing Static: Good Standing Dynamic: Good Treatment PT addressed bed mobility, transfers and gait while OT address ADL's and toileting. Assessment/Needs 74 y.o. female, is currently at independent [facility] with all gross motor skills and does not require skilled therapy intervention. Rehab Potential: Fair PT Plan Treatment/Plan Treatment Plan: Discontinue PT, goals met Treatment Duration: Mar 09, 2020 Frequency: 1 time per week Estimated Hrs Per Day: .25 hour per day Patient and/or Family Agrees t: Yes Discharge Recommendations Therapy Discharge Recommendati: Home & Family Time/GCodes Time In: 1500 Time Out: 1522 Total Billed Treatment Time: 22 Total Billed Treatment 1 visit EVModC 22 min (cotreat with OT) BE BARBOSA PT Mar 09, 2020 15:31
[2020-03-09 16:00] VITALS: BP 109/51
--- NOTE | 2020-03-09 16:06 | Occupational Therapy Eval ---
OT Evaluation-General/PLF Medical Diagnosis Admission Date Mar 08, 2020 at 20:06 Medical Diagnosis: elevated troponin/dyspnea/PUI Onset Date: Mar 08, 2020 Therapy Diagnosis Therapy Diagnosis: Weakness Height/Weight Height (Feet): 5 Height (Inches): 0.00 Weight (Pounds): 161 Weight (Ounces): 0 Precautions Precautions/Isolations: Contact Isolation, Droplet Isolation Weight Bear Status Pt. being tested for COVID at this time. Referral Physician: Eveline Referral Reason: Activity Tolerance, Self Care, Evaluation/Treatment, Strengthening/ROM Medical History Pertinent Medical History: Arthritis, CAD, Heart Failure, HTN, Neuropathy Additional Medical History Cervical and vaginal cancer, chemo radiation. Current History Pt. came to ER with elevated troponin, dyspnea, dehydration, and leukocytosis. Pt. being tested for COVID-19. Pt. is PUI at this time. Reviewed History: Yes Social History Home: Apartment Current Living Status: Children Entry Into Home: Stairs With Railing Steps Into Home: 1 ADL-Prior Level of Function SCALE: Activities may be completed with or without assistive devices. 3-Zbzikhcpgr-yswixcu completes the activity by him/herself with no assistance from a helper. 5-Set-up or Clean-up Assistance-helper sets up or cleans up; patient completes activity. [place] assists only prior to or following the activity. 4-Supervision or Touching Assistance-helper provides verbal cues and/or touching/steadying and/or contact guard assistance as patient completes activity. Assistance may be provided throughout the activity or intermittently. 3-Partial/Moderate Assistance-helper does LESS THAN HALF the effort. [place] lifts, holds or supports trunk or limbs, but provides less than half the effort. 2-Substantial/Maximal Assistance-helper does MORE THAN HALF the effort. [place] lifts or holds trunk or limbs and provides more than half the effort. 5-Edxqvdmsn-hczael does ALL the effort. Patient does none of the effort to complete the activity. Or, the assistance of 2 or more helpers is required for the patient to complete the activity. If activity was not attempted, code reason: 7-Patient Refused. 9-Not Applicable-not attempted and the patient did not perform the activity before the current illness, exacerbation or injury. 10-Not Attempted due to Environmental Limitations-(lack of equipment, weather restraints, etc.). 88-Not Attempted due to Medical Conditions or Safety Concerns. ADL PLOF Comments Pt. reports that she is independent typically with daily skills. She has a quad cane that she uses, "sometimes." She lives with family and states that they are home during the day. Self Care: Independent Functional Cognition: Independent OT Current Status Subjective Pt. verbalizes aggravation at being incontinent of stool. No pain reported. Mental Status/Objective Patient Orientation: Person, Place, Time, Situation Current Upper Extremity ROM WFL ADL-Treatment On/Off Footwear (QC): 5 Toileting Hygiene (QC): 5 Other Treatments Pt. seen for co-treatment by OT/PT due to pt's perceived fatigue level and need of skilled assist x 2. Pt. transferred to side of bed independently. Pt. able to don slipper socks after they were handed to her. Noted pt. had been incontinent of bowel in bed. Pt. upset by this and ambulates to bathroom at baseline level. Pt. is able to cleanse self, and change brief after set up. OT donned fresh gown. Pt. stood at sink and washed hands, and then sat on side of bed after returning from bathroom to brush hair. PT assessed mobility and LE strength. It is noted that pt. is likely at baseline level. No skilled OT needs at this time due to pt's independence with ADL skills. Pt. transferred to bed independently. All needs met. Education OT Patient Education: Correct positioning, Modified ADL techniques, Progress toward Goal/Update tx plan, Purpose of tx/functional activities, Reviewed precautions, Rehab process, Transfer techniques Teaching Recipient: Patient Teaching Methods: Demonstration, Discussion Response to Teaching: Verbalize Understanding, Return Demonstration OT Penitentiary Goals Penitentiary Goals Time Frame: Mar 09, 2020 Additional Goals: 1-Demonstrate ADL Tasks, 2-Verbalize Understanding 1=Demonstrate adherence to instructed precautions during ADL tasks. 2=Patient will verbalize/demonstrate understanding of assistive devices/modifications for ADL. 3=Patient will improve strength/tolerance for activity to enable patient to perform ADL's. OT Education/Plan Problem List/Assessment Assessment: No Skilled OT Needs ID'd Discharge Recommendations Plan/Recommendations: Discharge/Goals Met Therapy Discharge Recommendati: Home & Family Treatment Plan/Plan of Care Treatment,Training & Education: Yes Plan of Care: OTHER Treatment Duration: Mar 09, 2020 Frequency: 1 time per week Estimated Hrs Per Day: .5 hour per day Agreement: Yes Rehab Potential: Good Pt. at previous level functionally with ADL skills. No further OT warranted at this time. Time/GCodes Start Time: 15:00 Stop Time: 15:23 Total Time Billed (hr/min): 23 Billed Treatment Time 1, EVL x 10minutes, ADL x 13minutes Co-treatment with PT. Please see above note for designated roles. MOSES KELLER OT Mar 09, 2020 16:06
--- NOTE | 2020-03-09 17:16 | Diagnostic Imaging Report ---
INDICATION: Pneumonia. Respiratory distress. COMPARISON: 03/08/2020. FINDINGS: Portable chest. The lungs are well aerated. No acute infiltrates have developed since previous exam. Heart remains upper limits of normal. No pneumothorax or pleural effusion. No bony abnormalities. IMPRESSION: No evidence of acute infiltrates when compared with previous exam. Dictated by: Dictated on workstation # [id number]
[2020-03-09 19:43] VITALS: BP 93/49
[2020-03-09] MEDS: VANCOMYCIN 750 MG/NS 250 ML IVPB IV SCH ×4 (20:54→22:34)
[2020-03-09] MEDS ORDERED: AZITHROMYCIN 500 MG/NS 250 ML IVPB IV SCH ×2 (21:00)
[2020-03-09] MEDS: LOPERAMIDE 2 MG (IMODIUM) TABLET PO PRN (22:52)
[2020-03-10] VITALS (9 sets, daily range): BP systolic 83–146; BP diastolic 48–67
[2020-03-10] MEDS ORDERED: RT-ALBUTEROL INHALER HFA (VENTOLIN HFA) 18 GM IH PRN (05:00)
--- NOTE | 2020-03-10 05:43 | Progress Note - Hospitalist ---
Subjective HPI/CC On Admission Date Seen by Provider: Mar 10, 2020 Time Seen by Provider: 10:00 CC: Dyspnea HPI: This is a 74 yoWF known to me from recent hospital stay 01/24/20 for UTI who has a h/o CAD, CRI, COPD, AF and a multitude of other debilities who presents to the ER with complaints of dyspnea. COVID rapid was negative and PCR pending. PPE used in interview. Patient reports feeling about the same as she did when she was admitted and is currently using O2. No pain reported. Home meds restarted. PT OT will be consulted and Cardiology will see her. Subjective/Events-last exam Patient tired No pain reported Chronic diarrhea noted abx refused so I dc them Cardiology evaluated Review of Systems General: Fatigue, Malaise Gastrointestinal: Diarrhea Focused Exam Lactate Level 03/08/20 15:30: Lactic Acid Level 3.72*H 03/08/20 17:38: Lactic Acid Level 1.45 Objective Exam Vital Signs Vital Signs Date Time Temp Pulse Resp B/P (MAP) Pulse Ox O2 Delivery O2 Flow Rate FiO2 03/11/20 03:50 37.4 75 18 140/63 (88) 100 Room Air 03/10/20 04:42 21 Capillary Refill : Less Than 3 SecondsLess Than 3 Seconds General Appearance: No Apparent Distress, WD/WN, Chronically ill Respiratory: Chest Non Tender, Lungs Clear, Normal Breath Sounds, No Accessory Muscle Use, No Respiratory Distress Cardiovascular: Regular Rate, Rhythm, No Edema, No Gallop, No JVD, No Murmur, N ormal Peripheral Pulses Neurologic/Psychiatric: Alert, Oriented x3, No Motor/Sensory Deficits, Normal Mood/Affect Results/Procedures Lab Laboratory Tests 03/10/20 06:29 03/11/20 05:00 Patient resulted labs reviewed. Assessment/Plan Assessment and Plan Assess & Plan/Chief Complaint Assessment: Dyspnea COVID rapid negative but PCR pending UTI Elevated LA AF OAC CRI TRAE CHF COPD Plan: IV abx COVID OAC Cardiology 03/10/20: DC abx since she refuses Monitor closely PT OT Diagnosis/Problems Diagnosis/Problems (1) Dyspnea Status: Acute Qualifiers: Dyspnea type: dyspnea on exertion Qualified Codes: R06.00 - Dyspnea, unspecified (2) Leukocytosis (3) CAD (coronary artery disease) (4) UTI (urinary tract infection) Status: Acute (5) DVT prophylaxis Status: Acute (6) Lupus (systemic lupus erythematosus) Status: Chronic (7) Hypertension Status: Chronic (8) Hyperlipidemia Status: Chronic Clinical Quality Measures DVT/VTE Risk/Contraindication: Risk Factor Score Per Nursin RFS Level Per Nursing on Admit: 4+=Very High SERINA DEL REAL DO Mar 10, 2020 05:43
[2020-03-10] MEDS: CATHETER FLUSH 10 ML SYR IV SCH ×3 (06:40→22:44)
[2020-03-10 06:43] LABS: BASOPHILS % (AUTO) 1 % (0-10); EOSINOPHILS # (AUTO) 0.2 10^3/uL (0.0-0.3); EOSINOPHILS % (AUTO) 3 % (0-10); HEMATOCRIT 29 % (35-52); HEMOGLOBIN 8.6 g/dL (11.5-16.0); LYMPHOCYTES # (AUTO) 1.5 10^3/uL (1.0-4.0); LYMPHOCYTES % (AUTO) 25 % (12-44); MEAN CORPUSCULAR HEMOGLOBIN 28 pg (25-34); MEAN CORPUSCULAR HGB CONC 30 g/dL (32-36); MEAN CORPUSCULAR VOLUME 92 fL (80-99); MEAN PLATELET VOLUME 11.7 fL (9.0-12.2); MONOCYTES # (AUTO) 0.4 10^3/uL (0.0-1.0); MONOCYTES % (AUTO) 7 % (0-12); NEUTROPHILS # (AUTO) 3.7 10^3/uL (1.8-7.8); NEUTROPHILS % (AUTO) 64 % (42-75); PLATELET COUNT 209 10^3/uL (130-400); WHITE BLOOD COUNT 5.9 10^3/uL (4.3-11.0)
[2020-03-10 06:59] LABS: ALBUMIN 2.7 GM/DL (3.2-4.5); POTASSIUM 3.8 MMOL/L (3.6-5.0)
[2020-03-10 07:00] LABS: CALCIUM 7.6 MG/DL (8.5-10.1)
[2020-03-10 07:03] LABS: BILIRUBIN,TOTAL 0.3 MG/DL (0.1-1.0)
[2020-03-10 07:05] LABS: CREATININE SERUM 2.48 MG/DL (0.60-1.30)
[2020-03-10] MEDS: HYDROXYCHLOROQUINE 200 MG (PLAQUENIL) TAB PO SCH (08:45)
[2020-03-10] MEDS: APIXABAN 2.5 MG (ELIQUIS) TABLET PO SCH ×2 (08:45→21:52)
[2020-03-10] MEDS: ASPIRIN E.C. 81 MG (ECOTRIN) TAB PO SCH (08:45)
[2020-03-10] MEDS: ISOSORBIDE MONONITRATE 30 MG (IMDUR) TAB PO SCH (08:45)
[2020-03-10] MEDS: LOPERAMIDE 2 MG (IMODIUM) TABLET PO PRN (08:45)
[2020-03-10] MEDS: CLOPIDOGREL 75 MG (PLAVIX) TABLET PO SCH (08:46)
[2020-03-10] MEDS: meTOprolol SUCCINATE 100 MG (TOPROL XL) TAB PO SCH (08:47)
[2020-03-10] MEDS: GABAPENTIN 100 MG (NEURONTIN) CAP PO SCH ×2 (08:47→21:52)
[2020-03-10] MEDS: SENNA W/DOCUSATE (SENOKOT S) TABLET PO SCH ×2 (09:00→21:52)
--- NOTE | 2020-03-10 15:36 | Cardiology Progress Note ---
Cardiology SOAP Progress Note Subjective: no cardiac complaints Objective: I&O/Vital Signs 03/12/20 03/12/20 03/12/20 03/12/20 08:00 08:03 10:46 12:00 Temp 36.9 36.9 Pulse 71 69 Resp 20 20 B/P (MAP) 132/73 (92) 128/70 (89) Pulse Ox 100 100 93 100 O2 Delivery Room Air Room Air Room Air Room Air 03/12/20 16:00 Temp 36.5 Pulse 64 Resp 18 B/P (MAP) 128/58 (81) Pulse Ox 93 O2 Delivery Room Air 03/12/20 00:00 Intake Total 1460 ml Output Total 100 ml Balance 1360 ml Weight (Pounds): 161 Weight (Ounces): 0 Weight (Calculated Kilograms): 73.444221 Constitutional: AAO x 3 Respiratory: chest is bilaterally symmetric, lungs clear to auscultation Cardiovascular: regular rate-rhythm, S1 and S2 Gastrointestional: soft, audible bowel sounds Extremities: no lower extremity edema bilateral Neurologic/Psychiatric: no motor/sensory deficits, alert, normal mood/affect, oriented x 3 Results/Procedures: Labs Laboratory Tests 03/12/20 04:30: White Blood Count 5.8, Red Blood Count 3.05L, Hemoglobin 8.5L, Hematocrit 28L, Mean Corpuscular Volume 93, Mean Corpuscular Hemoglobin 28, Mean Corpuscular Hemoglobin Concent 30L, Red Cell Distribution Width 15.9H, Platelet Count 201, Mean Platelet Volume 11.7, Immature Granulocyte % (Auto) 0, Neutrophils (%) (Auto) 68, Lymphocytes (%) (Auto) 23, Monocytes (%) (Auto) 7, Eosinophils (%) (Auto) 2, Basophils (%) (Auto) 0, Neutrophils # (Auto) 3.9, Lymphocytes # (Auto) 1.3, Monocytes # (Auto) 0.4, Eosinophils # (Auto) 0.1, Basophils # (Auto) 0.0, Immature Granulocyte # (Auto) 0.0, Sodium Level 140, Potassium Level 3.7, Chloride Level 115H, Carbon Dioxide Level 16L, Anion Gap 9, Blood Urea Nitrogen 18, Creatinine 2.19H, Estimat Glomerular Filtration Rate 22, BUN/Creatinine Ratio 8, Glucose Level 79, Calcium Level 7.9L, Corrected Calcium 8.9, Total Bilirubin 0.3, Aspartate Amino Transf (AST/SGOT) 15, Alanine Aminotransferase (ALT/SGPT) 8, Alkaline Phosphatase 60, Total Protein 5.3L, Albumin 2.8L Microbiology 03/08/20 MRSA Screen - Final, Complete MRSA not isolated 03/08/20 Urine Culture - Final, Complete Lactobacillus species Escherichia coli 03/08/20 Blood Culture - Preliminary, Resulted No growth A/P: Assessment/Dx: generalized weakness Shortness of breath Hypertension Hyperlipidemia Plan: Generalized weakness and loss of energy, questionable underlying infection, had elevation of 20, workup is in progress, followed and managed by Dr. Mosquera Shortness of breath on exertion, increasing weakness and loss of energy. Has history of ischemic cardiomyopathy, last echocardiogram in April 2019 showed normal left ventricular function with EF 50-55 percent, mild mitral regurgitation, PA pressure 20 mmHg. Continue to monitor Chronic renal insufficiency, monitor renal function Mild elevation in troponin level, has coronary artery disease as described above, there is no active chest pain, no acute EKG changes. Probably her elevated troponin is type II myocardial infarction due to small vessel disease. Medical therapy is recommended no intervention is needed Coronary artery disease, had a cardiac catheterization done by Dr. Olvera in September 2019 with stenting of the circumflex artery using resolute 2.25 x 14 mm, patient had 90 percent stenosis in the posterior lateral branch of the right coronary artery that was treated medically. history of pericardial disease and ischemic foot ulcer. Hypertension, restart home medication and monitor blood pressure CVA with L homonymous hemianopsia - small to moderate-sized area of acute/subacute infarct involving the right occipital lobe. There is no evidence of intra-cranial hemorrhage, brain herniation, or midline shift on CT of the head on 07-15-18. Followed and managed with primary care physician Carotid artery disease - carotid u/s of 07-15-18, there is mod bilat carotid arterial plaque, worse (50-70% stenosis) on the right, continue to monitor Intolerant to warfarin due to wide variations in INR. Currently on apixaban H/O cervical cancer for which she has undergone chemo (last tx 12 years ago) H/O sleep apnea, non-compliant with CPAP tx HLD - statin tx followed by her PCP H/O sinus bradycardia and V-tach during ED visit in November 2017 - transferred to [facility] at that time Chronic diarrhea Reports chronic lymphedema to right leg Depression H/o lupus and gout (details unknown) followed and treated by pcp Family h/o CAD (son has had coronary stenting; mother has had CVA) Thank you for your consultation. Please call me if you have any questions. Carson Pike MD, FACP, FACC, FSCAI, FHRS, CCDS Interventional Cardiology Cardiac Electrophysiology Vascular Medicine and Endovascular Interventions Focused Exam Lactate Level Floresita PIKE MD Mar 10, 2020 15:36
--- NOTE | 2020-03-10 17:33 | Physician Query Clarification ---
"Physician Query-General Query to Physician: The medical record reflects the following clinical scenario: History/Risk factors: CAD, HTN, previous Cardiac stents Clinical Findings: Dyspnea, Troponin 0.118, 0.107, EKG no ST elevation Treatment: Troponin monitoring, Cardiac Consult, ASA, Eliquis, Plavix, Metoprolol Question: Do you agree with the impression of Type II Myocardial infarction due to small vessel disease per Kassi Moreno? If you agree, please document in Progress Notes or Discharge Summary. 1. Yes; will document Type II IN present on admission in the Progress Notes 2. No; will continue to document CAD in the Progress Notes 3. Other; will document explanation of clinical findings 4. Clinically undetermined; no explanation for clinical findings Please remember a lack of response to the above will prompt a phone page by CDI/coding staff. In responding to this query, please exercise your independent professional judgment. The purpose of this communication is to more accurately reflect the complexity of your patients condition. The fact that a question is asked does not imply that any particular answer is desired or expected. Thank you for timely response to this clarification. Edwina Angelo, MSN, RN RN Specialist-Clinical Doc Improvement CD -Health Info Mgmt Operations [address] [facility] t: [phone] | f: [phone] If you are unable to reach me at my extension, I may be working from home. Please contact me at [phone] PHYSICIAN RESPONSE: Based on the clinical findings in the record, please respond to the query above on this document as an addendum. Physician Response: Physician Response 1 If you have questions please contact: Commercial Real Estate Manager: Ext: Thank you for your time and cooperation. Clinical Insurance Loss Assessor/Commercial Real Estate Manager This is a permanent part of the medical record EDWINA ANGELO Mar 10, 2020 17:33 SERINA DEL REAL DO Mar 10, 2020 20:30"
--- NOTE | 2020-03-10 17:34 | Physician Query Clarification ---
"Physician Query-General Query to Physician: he medical record reflects the following clinical scenario: History/Risk factors: Chronic steroid use, UTI Clinical Findings: WBC 16.1, HR 109, BP 95/47, LA 3.72, UA + for E. Coli Treatment: LR 1 liter bolus, NS, Azithromycin, Zosyn, Vancomycin Question: What condition best reflects the above clinical scenario? Please document response in the Progress notes or Discharge Summary. 1. Sepsis Present on admission possibly due to UTI 2. UTI (as currently documented) 3. Other , with explanation of the clinical findings 4. Clinically undetermined, no explanation for the clinical findings Please remember a lack of response to the above will prompt a phone page by CDI/coding staff In responding to this query, please exercise your independent professional judgment. The purpose of this communication is to more accurately reflect the complexity of your patients condition. The fact that a question is asked does not imply that any particular answer is desired or expected. Thank you for timely response to this clarification. Edwina Angelo, MSN, RN RN Specialist-Clinical Doc Improvement CD -Health Info Mgmt Operations [address] [facility] t: [phone] | f: [phone] If you are unable to reach me at my extension, I may be working from home. Please contact me at [phone] PHYSICIAN RESPONSE: Based on the clinical findings in the record, please respond to the query above on this document as an addendum. Physician Response: Physician Response 2 If you have questions please contact: Wellness Program Coordinator: Ext: Thank you for your time and cooperation. Clinical Administration Specialist/Wellness Program Coordinator This is a permanent part of the medical record EDWINA ANGELO Mar 10, 2020 17:34 SERINA DEL REAL DO Mar 10, 2020 20:31"
[2020-03-11 03:50] VITALS: BP 140/63
[2020-03-11 05:13] LABS: BASOPHILS % (AUTO) 1 % (0-10); EOSINOPHILS # (AUTO) 0.2 10^3/uL (0.0-0.3); EOSINOPHILS % (AUTO) 2 % (0-10); HEMATOCRIT 29 % (35-52); HEMOGLOBIN 8.6 g/dL (11.5-16.0); LYMPHOCYTES # (AUTO) 1.5 10^3/uL (1.0-4.0); LYMPHOCYTES % (AUTO) 24 % (12-44); MEAN CORPUSCULAR HEMOGLOBIN 28 pg (25-34); MEAN CORPUSCULAR HGB CONC 30 g/dL (32-36); MEAN CORPUSCULAR VOLUME 93 fL (80-99); MEAN PLATELET VOLUME 11.4 fL (9.0-12.2); MONOCYTES # (AUTO) 0.4 10^3/uL (0.0-1.0); MONOCYTES % (AUTO) 6 % (0-12); NEUTROPHILS # (AUTO) 4.1 10^3/uL (1.8-7.8); NEUTROPHILS % (AUTO) 66 % (42-75); PLATELET COUNT 215 10^3/uL (130-400); WHITE BLOOD COUNT 6.2 10^3/uL (4.3-11.0)
[2020-03-11 05:26] LABS: ALBUMIN 2.7 GM/DL (3.2-4.5)
[2020-03-11 05:27] LABS: POTASSIUM 3.9 MMOL/L (3.6-5.0)
[2020-03-11 05:28] LABS: CALCIUM 7.8 MG/DL (8.5-10.1)
[2020-03-11 05:29] LABS: TOTAL PROTEIN 5.1 GM/DL (6.4-8.2)
[2020-03-11 05:31] LABS: BILIRUBIN,TOTAL 0.2 MG/DL (0.1-1.0)
[2020-03-11 05:33] LABS: CREATININE SERUM 2.36 MG/DL (0.60-1.30)
[2020-03-11] MEDS: CATHETER FLUSH 10 ML SYR IV SCH ×3 (05:57→20:26)
[2020-03-11 08:00] VITALS: BP 127/74
[2020-03-11] MEDS: HYDROXYCHLOROQUINE 200 MG (PLAQUENIL) TAB PO SCH ×2 (08:59→09:00)
[2020-03-11] MEDS: ISOSORBIDE MONONITRATE 30 MG (IMDUR) TAB PO SCH (09:00)
[2020-03-11] MEDS: ASPIRIN E.C. 81 MG (ECOTRIN) TAB PO SCH (09:00)
[2020-03-11] MEDS: meTOprolol SUCCINATE 100 MG (TOPROL XL) TAB PO SCH (09:01)
[2020-03-11] MEDS: APIXABAN 2.5 MG (ELIQUIS) TABLET PO SCH ×2 (09:01→20:26)
[2020-03-11] MEDS: CLOPIDOGREL 75 MG (PLAVIX) TABLET PO SCH (09:01)
[2020-03-11] MEDS: SENNA W/DOCUSATE (SENOKOT S) TABLET PO SCH ×2 (09:01→20:24)
[2020-03-11] MEDS: GABAPENTIN 100 MG (NEURONTIN) CAP PO SCH ×2 (09:01→20:25)
[2020-03-11] MEDS: LOPERAMIDE 2 MG (IMODIUM) TABLET PO PRN (09:06)
[2020-03-11 12:00] VITALS: BP 115/70
--- NOTE | 2020-03-11 13:54 | Progress Note - Hospitalist ---
Subjective HPI/CC On Admission Date Seen by Provider: Mar 11, 2020 Time Seen by Provider: 10:30 CC: Dyspnea HPI: This is a 74 yoWF known to me from recent hospital stay 01/24/20 for UTI who has a h/o CAD, CRI, COPD, AF and a multitude of other debilities who presents to the ER with complaints of dyspnea. COVID rapid was negative and PCR pending. PPE used in interview. Patient reports feeling about the same as she did when she was admitted and is currently using O2. No pain reported. Home meds restarted. PT OT will be consulted and Cardiology will see her. Subjective/Events-last exam Frustrated about her chronic med issues PT OT will be ordered Chronic diarrhea No major issues Review of Systems General: Fatigue, Malaise Pulmonary: Dyspnea Focused Exam Lactate Level Objective Exam Vital Signs Vital Signs Date Time Temp Pulse Resp B/P (MAP) Pulse Ox O2 Delivery O2 Flow Rate FiO2 03/12/20 04:16 36.9 71 16 147/63 (91) 96 Room Air 03/10/20 04:42 21 Capillary Refill : Less Than 3 SecondsLess Than 3 Seconds General Appearance: No Apparent Distress, WD/WN, Chronically ill Respiratory: Chest Non Tender, Lungs Clear, Normal Breath Sounds, No Accessory Muscle Use, No Respiratory Distress Cardiovascular: Regular Rate, Rhythm, No Edema, No Gallop, No JVD, No Murmur, Normal Peripheral Pulses Neurologic/Psychiatric: Alert, Oriented x3, No Motor/Sensory Deficits, Normal Mood/Affect Results/Procedures Lab Laboratory Tests 03/12/20 04:30 Patient resulted labs reviewed. Assessment/Plan Assessment and Plan Assess & Plan/Chief Complaint Assessment: Dyspnea COVID rapid negative but PCR pending UTI Elevated LA AF OAC CRI TRAE CHF COPD Plan: IV abx COVID OAC Cardiology 03/10/20: DC abx since she refuses Monitor closely PT OT 03/11/20: Monitor diarrhea Pain control O2 Diagnosis/Problems Diagnosis/Problems (1) Dyspnea Status: Acute Qualifiers: Dyspnea type: dyspnea on exertion Qualified Codes: R06.00 - Dyspnea, unspecified (2) Leukocytosis (3) CAD (coronary artery disease) (4) UTI (urinary tract infection) Status: Acute (5) DVT prophylaxis Status: Acute (6) Lupus (systemic lupus erythematosus) Status: Chronic (7) Hypertension Status: Chronic (8) Hyperlipidemia Status: Chronic Clinical Quality Measures DVT/VTE Risk/Contraindication: Risk Factor Score Per Nursin RFS Level Per Nursing on Admit: 4+=Very High SERINA DEL REAL DO Mar 11, 2020 13:54
[2020-03-11 16:00] VITALS: BP 135/67
--- NOTE | 2020-03-11 18:25 | Cardiology Progress Note ---
Cardiology SOAP Progress Note Subjective: no cardiac complaints Objective: I&O/Vital Signs 03/12/20 03/12/20 03/12/20 03/12/20 08:00 08:03 10:46 12:00 Temp 36.9 36.9 Pulse 71 69 Resp 20 20 B/P (MAP) 132/73 (92) 128/70 (89) Pulse Ox 100 100 93 100 O2 Delivery Room Air Room Air Room Air Room Air 03/12/20 16:00 Temp 36.5 Pulse 64 Resp 18 B/P (MAP) 128/58 (81) Pulse Ox 93 O2 Delivery Room Air 03/12/20 00:00 Intake Total 1460 ml Output Total 100 ml Balance 1360 ml Weight (Pounds): 161 Weight (Ounces): 0 Weight (Calculated Kilograms): 73.618659 Constitutional: AAO x 3 Respiratory: chest is bilaterally symmetric, lungs clear to auscultation Cardiovascular: regular rate-rhythm, S1 and S2 Gastrointestional: soft, audible bowel sounds Neurologic/Psychiatric: no motor/sensory deficits, alert, normal mood/affect, oriented x 3 Results/Procedures: Labs Laboratory Tests 03/12/20 04:30: White Blood Count 5.8, Red Blood Count 3.05L, Hemoglobin 8.5L, Hematocrit 28L, Mean Corpuscular Volume 93, Mean Corpuscular Hemoglobin 28, Mean Corpuscular Hemoglobin Concent 30L, Red Cell Distribution Width 15.9H, Platelet Count 201, Mean Platelet Volume 11.7, Immature Granulocyte % (Auto) 0, Neutrophils (%) (Auto) 68, Lymphocytes (%) (Auto) 23, Monocytes (%) (Auto) 7, Eosinophils (%) (Auto) 2, Basophils (%) (Auto) 0, Neutrophils # (Auto) 3.9, Lymphocytes # (Auto) 1.3, Monocytes # (Auto) 0.4, Eosinophils # (Auto) 0.1, Basophils # (Auto) 0.0, Immature Granulocyte # (Auto) 0.0, Sodium Level 140, Potassium Level 3.7, Chloride Level 115H, Carbon Dioxide Level 16L, Anion Gap 9, Blood Urea Nitrogen 18, Creatinine 2.19H, Estimat Glomerular Filtration Rate 22, BUN/Creatinine Ratio 8, Glucose Level 79, Calcium Level 7.9L, Corrected Calcium 8.9, Total Bilirubin 0.3, Aspartate Amino Transf (AST/SGOT) 15, Alanine Aminotransferase (ALT/SGPT) 8, Alkaline Phosphatase 60, Total Protein 5.3L, Albumin 2.8L Microbiology 03/08/20 MRSA Screen - Final, Complete MRSA not isolated 03/08/20 Urine Culture - Final, Complete Lactobacillus species Escherichia coli 03/08/20 Blood Culture - Preliminary, Resulted No growth A/P: Assessment/Dx: generalized weakness Shortness of breath Hypertension Hyperlipidemia Plan: Plan: Generalized weakness and loss of energy, questionable underlying infection, had elevation of 20, workup is in progress, followed and managed by Dr. Mosquera Shortness of breath on exertion, increasing weakness and loss of energy. Has history of ischemic cardiomyopathy, last echocardiogram in April 2019 showed normal left ventricular function with EF 50-55 percent, mild mitral regurgitation, PA pressure 20 mmHg. Continue to monitor Chronic renal insufficiency, monitor renal function Mild elevation in troponin level, has coronary artery disease as described above, there is no active chest pain, no acute EKG changes. Probably her elevated troponin is type II myocardial infarction due to small vessel disease. Medical therapy is recommended no intervention is needed Coronary artery disease, had a cardiac catheterization done by Dr. Olvera in September 2019 with stenting of the circumflex artery using resolute 2.25 x 14 mm, patient had 90 percent stenosis in the posterior lateral branch of the right coronary artery that was treated medically. history of pericardial disease and ischemic foot ulcer. Hypertension, restart home medication and monitor blood pressure CVA with L homonymous hemianopsia - small to moderate-sized area of acute/subacute infarct involving the right occipital lobe. There is no evidence of intra-cranial hemorrhage, brain herniation, or midline shift on CT of the head on 07-15-18. Followed and managed with primary care physician Carotid artery disease - carotid u/s of 07-15-18, there is mod bilat carotid arterial plaque, worse (50-70% stenosis) on the right, continue to monitor Intolerant to warfarin due to wide variations in INR. Currently on apixaban H/O cervical cancer for which she has undergone chemo (last tx 12 years ago) H/O sleep apnea, non-compliant with CPAP tx HLD - statin tx followed by her PCP H/O sinus bradycardia and V-tach during ED visit in November 2017 - transferred to [facility] at that time Chronic diarrhea Reports chronic lymphedema to right leg Depression H/o lupus and gout (details unknown) followed and treated by pcp Family h/o CAD (son has had coronary stenting; mother has had CVA) Thank you for your consultation. Please call me if you have any questions. Carson Pike MD, FACP, FACC, FSCAI, FHRS, CCDS Interventional Cardiology Cardiac Electrophysiology Vascular Medicine and Endovascular Interventions Floresita PIKE MD Mar 11, 2020 18:25
[2020-03-11 20:00] VITALS: BP 128/59
--- NOTE | 2020-03-11 22:48 | NUR ---
Patients right upper arm IV painful to flush, appears red and puffy. Patient refused to let staff attempt to place a new IV at this time. Patient states she is a "hard stick" and "wants to have a PICC or midline placed." This RN contacted Dr Mosquera and informed her of patients refusal and wishes. Dr Mosquera okay with patient being without IV access at this time. Upper arm IV removed with catheter tip intact.
[2020-03-11 23:16] VITALS: BP 147/65
[2020-03-12 04:16] VITALS: BP 147/63
[2020-03-12] MEDS: CATHETER FLUSH 10 ML SYR IV SCH ×4 (05:01→19:22)
[2020-03-12 05:06] LABS: BASOPHILS % (AUTO) 0 % (0-10); EOSINOPHILS # (AUTO) 0.1 10^3/uL (0.0-0.3); EOSINOPHILS % (AUTO) 2 % (0-10); HEMATOCRIT 28 % (35-52); HEMOGLOBIN 8.5 g/dL (11.5-16.0); LYMPHOCYTES # (AUTO) 1.3 10^3/uL (1.0-4.0); LYMPHOCYTES % (AUTO) 23 % (12-44); MEAN CORPUSCULAR HEMOGLOBIN 28 pg (25-34); MEAN CORPUSCULAR HGB CONC 30 g/dL (32-36); MEAN CORPUSCULAR VOLUME 93 fL (80-99); MEAN PLATELET VOLUME 11.7 fL (9.0-12.2); MONOCYTES # (AUTO) 0.4 10^3/uL (0.0-1.0); MONOCYTES % (AUTO) 7 % (0-12); NEUTROPHILS # (AUTO) 3.9 10^3/uL (1.8-7.8); NEUTROPHILS % (AUTO) 68 % (42-75); PLATELET COUNT 201 10^3/uL (130-400); WHITE BLOOD COUNT 5.8 10^3/uL (4.3-11.0)
[2020-03-12 05:28] LABS: ALBUMIN 2.8 GM/DL (3.2-4.5); POTASSIUM 3.7 MMOL/L (3.6-5.0)
[2020-03-12 05:29] LABS: CALCIUM 7.9 MG/DL (8.5-10.1)
[2020-03-12 05:30] LABS: TOTAL PROTEIN 5.3 GM/DL (6.4-8.2)
[2020-03-12 05:32] LABS: BILIRUBIN,TOTAL 0.3 MG/DL (0.1-1.0)
[2020-03-12 05:34] LABS: CREATININE SERUM 2.19 MG/DL (0.60-1.30)
--- NOTE | 2020-03-12 07:24 | Progress Note - Hospitalist ---
Subjective HPI/CC On Admission Date Seen by Provider: Mar 12, 2020 Time Seen by Provider: 11:00 CC: Dyspnea HPI: This is a 74 yoWF known to me from recent hospital stay 01/24/20 for UTI who has a h/o CAD, CRI, COPD, AF and a multitude of other debilities who presents to the ER with complaints of dyspnea. COVID rapid was negative and PCR pending. PPE used in interview. Patient reports feeling about the same as she did when she was admitted and is currently using O2. No pain reported. Home meds restarted. PT OT will be consulted and Cardiology will see her. Subjective/Events-last exam Patient doing well Thinks she will go to move in with her other son since the one she lives with "is a drunk" Patient getting around ok with PT Uses walker No O2 right now Monitor creatinine DC abx at her request and there was no definite infection to require them they were only empiric Review of Systems General: Fatigue, Malaise Objective Exam Vital Signs Vital Signs Date Time Temp Pulse Resp B/P (MAP) Pulse Ox O2 Delivery O2 Flow Rate FiO2 03/12/20 23:52 36.5 63 18 162/75 (104) 100 Room Air 03/10/20 04:42 21 Capillary Refill : Less Than 3 SecondsLess Than 3 Seconds General Appearance: No Apparent Distress, WD/WN, Chronically ill Respiratory: Chest Non Tender, Lungs Clear, Normal Breath Sounds, No Accessory Muscle Use, No Respiratory Distress Cardiovascular: Regular Rate, Rhythm, No Edema, No Gallop, No JVD, No Murmur, Normal Peripheral Pulses Neurologic/Psychiatric: Alert, Oriented x3, No Motor/Sensory Deficits, Normal Mood/Affect Results/Procedures Lab Laboratory Tests 03/13/20 04:25 Patient resulted labs reviewed. Assessment/Plan Assessment and Plan Assess & Plan/Chief Complaint Assessment: Dyspnea COVID rapid negative but PCR pending UTI Elevated LA AF OAC CRI TRAE CHF COPD Plan: IV abx COVID OAC Cardiology 03/10/20: DC abx since she refuses Monitor closely PT OT 03/11/20: Monitor diarrhea Pain control O2 03/12/20: SW consult Supportive care Diagnosis/Problems Diagnosis/Problems (1) Dyspnea Status: Acute Qualifiers: Dyspnea type: dyspnea on exertion Qualified Codes: R06.00 - Dyspnea, unspecified (2) Leukocytosis (3) CAD (coronary artery disease) (4) UTI (urinary tract infection) Status: Acute (5) DVT prophylaxis Status: Acute (6) Lupus (systemic lupus erythematosus) Status: Chronic (7) Hypertension Status: Chronic (8) Hyperlipidemia Status: Chronic Clinical Quality Measures DVT/VTE Risk/Contraindication: Risk Factor Score Per Nursin RFS Level Per Nursing on Admit: 4+=Very High SERINA DEL REAL DO Mar 12, 2020 07:24
[2020-03-12] MEDS: SENNA W/DOCUSATE (SENOKOT S) TABLET PO SCH ×2 (07:28→19:20)
[2020-03-12] MEDS: LOPERAMIDE 2 MG (IMODIUM) TABLET PO PRN ×3 (07:54→23:48)
[2020-03-12] MEDS: ISOSORBIDE MONONITRATE 30 MG (IMDUR) TAB PO SCH (07:54)
[2020-03-12] MEDS: APIXABAN 2.5 MG (ELIQUIS) TABLET PO SCH ×2 (07:54→19:20)
[2020-03-12] MEDS: GABAPENTIN 100 MG (NEURONTIN) CAP PO SCH ×2 (07:54→19:20)
[2020-03-12] MEDS: ASPIRIN E.C. 81 MG (ECOTRIN) TAB PO SCH (07:55)
[2020-03-12] MEDS: meTOprolol SUCCINATE 100 MG (TOPROL XL) TAB PO SCH (07:55)
[2020-03-12] MEDS: HYDROXYCHLOROQUINE 200 MG (PLAQUENIL) TAB PO SCH (07:55)
[2020-03-12] MEDS: CLOPIDOGREL 75 MG (PLAVIX) TABLET PO SCH (07:55)
[2020-03-12 08:03] VITALS: BP 132/73
[2020-03-12 12:00] VITALS: BP 128/70
[2020-03-12 16:00] VITALS: BP 128/58
[2020-03-12 23:52] VITALS: BP 162/75
[2020-03-13] MEDS: CATHETER FLUSH 10 ML SYR IV SCH ×2 (03:00→13:32)
[2020-03-13 05:18] LABS: BASOPHILS % (AUTO) 0 % (0-10); EOSINOPHILS # (AUTO) 0.2 10^3/uL (0.0-0.3); EOSINOPHILS % (AUTO) 3 % (0-10); HEMATOCRIT 31 % (35-52); HEMOGLOBIN 9.2 g/dL (11.5-16.0); LYMPHOCYTES # (AUTO) 1.4 10^3/uL (1.0-4.0); LYMPHOCYTES % (AUTO) 24 % (12-44); MEAN CORPUSCULAR HEMOGLOBIN 28 pg (25-34); MEAN CORPUSCULAR HGB CONC 30 g/dL (32-36); MEAN CORPUSCULAR VOLUME 92 fL (80-99); MEAN PLATELET VOLUME 12.1 fL (9.0-12.2); MONOCYTES # (AUTO) 0.4 10^3/uL (0.0-1.0); MONOCYTES % (AUTO) 7 % (0-12); NEUTROPHILS # (AUTO) 3.9 10^3/uL (1.8-7.8); NEUTROPHILS % (AUTO) 65 % (42-75); PLATELET COUNT 220 10^3/uL (130-400)
[2020-03-13 05:44] LABS: ALBUMIN 2.7 GM/DL (3.2-4.5); BILIRUBIN,TOTAL 0.3 MG/DL (0.1-1.0); CREATININE SERUM 2.14 MG/DL (0.60-1.30); TOTAL PROTEIN 5.2 GM/DL (6.4-8.2)
[2020-03-13 08:00] VITALS: BP 153/74
--- NOTE | 2020-03-13 08:05 | Progress Note - Cardiology ---
Cardiology SOAP Progress Note Objective: I&O/Vital Signs 03/12/20 23:52 Temp 36.5 Pulse 63 Resp 18 B/P (MAP) 162/75 (104) Pulse Ox 100 O2 Delivery Room Air 03/13/20 00:00 Intake Total 1235 ml Balance 1235 ml Weight (Pounds): 161 Weight (Ounces): 0 Weight (Calculated Kilograms): 73.552595 Constitutional: AAO x 3 Respiratory: chest is bilaterally symmetric, lungs clear to auscultation Cardiovascular: regular rate-rhythm, S1 and S2 Gastrointestional: soft, audible bowel sounds Extremities: no lower extremity edema bilateral Neurologic/Psychiatric: no motor/sensory deficits, alert, normal mood/affect, oriented x 3 Results/Procedures: Labs Laboratory Tests 03/13/20 04:25: White Blood Count 6.0, Red Blood Count 3.33L, Hemoglobin 9.2L, Hematocrit 31L, Mean Corpuscular Volume 92, Mean Corpuscular Hemoglobin 28, Mean Corpuscular Hemoglobin Concent 30L, Red Cell Distribution Width 15.8H, Platelet Count 220, Mean Platelet Volume 12.1, Immature Granulocyte % (Auto) 0, Neutrophils (%) ( Auto) 65, Lymphocytes (%) (Auto) 24, Monocytes (%) (Auto) 7, Eosinophils (%) (Auto) 3, Basophils (%) (Auto) 0, Neutrophils # (Auto) 3.9, Lymphocytes # (Auto) 1.4, Monocytes # (Auto) 0.4, Eosinophils # (Auto) 0.2, Basophils # (Auto) 0.0, Immature Granulocyte # (Auto) 0.0, Sodium Level 140, Potassium Level 4.0, Chloride Level 115H, Carbon Dioxide Level 17L, Anion Gap 8, Blood Urea Nitrogen 16, Creatinine 2.14H, Estimat Glomerular Filtration Rate 23, BUN/Creatinine Ratio 7, Glucose Level 72, Calcium Level 8.0L, Corrected Calcium 9.0, Total Bilirubin 0.3, Aspartate Amino Transf (AST/SGOT) 14, Alanine Aminotransferase (ALT/SGPT) 10, Alkaline Phosphatase 62, Total Protein 5.2L, Albumin 2.7L Microbiology 03/08/20 MRSA Screen - Final, Complete MRSA not isolated 03/08/20 Urine Culture - Final, Complete Lactobacillus species Escherichia coli 03/08/20 Blood Culture - Preliminary, Resulted No growth Laboratory Tests 03/12/20 04:30 03/13/20 04:25 A/P: Assessment: Generalized weakness and loss of energy, followed and managed by Dr. Mosquera Shortness of breath on exertion, increasing weakness and loss of energy. Has history of ischemic cardiomyopathy, last echocardiogram in April 2019 showed normal left ventricular function with EF 50-55 percent, mild mitral regurgitation, PA pressure 20 mmHg. Chronic renal insufficiency Mild elevation in troponin level, has coronary artery disease as described above, there is no active chest pain, no acute EKG changes. Probably her elevated troponin is type II myocardial infarction due to small vessel disease. Medical therapy is recommended no intervention is needed Coronary artery disease, had a cardiac catheterization done by Dr. Olvera in September 2019 with stenting of the circumflex artery using resolute 2.25 x 14 mm, patient had 90 percent stenosis in the posterior lateral branch of the right coronary artery that was treated medically. history of peripheral vascular disease and ischemic foot ulcer. Hypertension, restart home medication and monitor blood pressure CVA with L homonymous hemianopsia - small to moderate-sized area of acute/subacute infarct involving the right occipital lobe. There is no evidence of intra-cranial hemorrhage, brain herniation, or midline shift on CT of the head on 07-15-18. Followed and managed with primary care physician Carotid artery disease - carotid u/s of 07-15-18, there is mod bilat carotid arterial plaque, worse (50-70% stenosis) on the right, continue to monitor Intolerant to warfarin due to wide variations in INR. Currently on apixaban H/O cervical cancer for which she has undergone chemo (last tx 12 years ago) H/O sleep apnea, non-compliant with CPAP tx HLD - statin tx followed by her PCP H/O sinus bradycardia and V-tach during ED visit in November 2017 - transferred to [facility] at that time Chronic diarrhea Reports chronic lymphedema to right leg Depression H/o lupus and gout (details unknown) followed and treated by pcp Family h/o CAD (son has had coronary stenting; mother has had CVA) TATY ENGLE Mar 13, 2020 08:05
[2020-03-13] MEDS: meTOprolol SUCCINATE 100 MG (TOPROL XL) TAB PO SCH (08:12)
[2020-03-13] MEDS: ISOSORBIDE MONONITRATE 30 MG (IMDUR) TAB PO SCH (08:13)
[2020-03-13] MEDS: GABAPENTIN 100 MG (NEURONTIN) CAP PO SCH (08:13)
[2020-03-13] MEDS: HYDROXYCHLOROQUINE 200 MG (PLAQUENIL) TAB PO SCH (08:13)
[2020-03-13] MEDS: APIXABAN 2.5 MG (ELIQUIS) TABLET PO SCH (08:13)
[2020-03-13] MEDS: CLOPIDOGREL 75 MG (PLAVIX) TABLET PO SCH (08:13)
[2020-03-13] MEDS: ASPIRIN E.C. 81 MG (ECOTRIN) TAB PO SCH (08:13)
[2020-03-13] MEDS: SENNA W/DOCUSATE (SENOKOT S) TABLET PO SCH (08:15)
[2020-03-13] MEDS ORDERED: predniSONE 10 MG TAB PO SCH (10:45)
--- NOTE | 2020-03-13 11:01 | NUR ---
THIS RN INFORMED DR. CELESTIN THAT MICHAEL BARRIGA INFORMED THIS RN THAT FROM CARDIOLOGY STANDPOINT PATIENT MAY DISCHARGE.
--- NOTE | 2020-03-13 12:11 | Discharge Summary ---
Diagnosis/Chief Complaint Date of Admission Mar 08, 2020 at 20:06 Date of Discharge 03/13/2020 Admission Diagnosis Admission Diagnosis UTI Paroxysmal A Fib Acute on Chronic Renal Failure Elevated Troponin h/o Ischemic Cardiomyopathy COPD Lupus HTN Discharge Diagnosis See Above Discharge Summary-Simple/Stand Consultations Dr Olvera: Cardiology Discharge Physical Examination Allergies: Coded Allergies: No Known Drug Allergies (Verified , 10/21/08) Vitals & I&Os Vital Sign - Last 12Hours Date Time Temp Pulse Resp B/P (MAP) Pulse Ox O2 Delivery O2 Flow Rate FiO2 03/13/20 08:00 Room Air 03/13/20 08:00 36.3 66 20 153/74 (100) 100 03/10/20 04:42 21 Intake and Output 03/13/20 00:00 Intake Total 1235 ml Balance 1235 ml General Appearance: Alert, Oriented X3, Cooperative, No Acute Distress HEENT: Mucous Memb Moist/[place] Respiratory: Clear to Auscultation Cardiovascular: Regular Rate, No Murmurs Abdominal: Normal Bowel Sounds, Soft, No Tenderness, No Masses Extremities: No Edema, No Tenderness/Swelling Skin: No Rashes, No Breakdown Neuro: Normal Speech, Sensation Intact, Cranial Nerves 3-12 NL Psych/Mental Status: Mental Status NL, Mood NL Hospital Course Was the Problem List Reviewed?: No See final discharge diagnosis. Discussion & Recommendations 74 yo F that presented with shortness of breath and was found to have acute on chronic renal failure with elevated troponin. Cardiology was consulted and patient had recent cath and recommended observation. Patient was also started on antibiotic for UTI. Patient will have close f.u with PCP Discharge Condition at discharge Stable Instructions to patient/family Please see electronic discharge instructions given to patient. Discharge Medications Reviewed and agree with Discharge Medication list on patient's Discharge Instruction sheet Clinical Quality Measures DVT/VTE Risk/Contraindication: Risk Factor Score Per Nursin RFS Level Per Nursing on Admit: 4+=Very High SIMONE CELESTIN MD Mar 13, 2020 12:11
[2020-03-13] MEDS ORDERED: CEFD300C3 PO (12:13)
--- NOTE | 2020-03-13 12:16 | Discharge Summary ---
Discharge [facility] Reconcile Patient Problems Problems Reviewed?: Yes Discharge Medications New, Converted or Re-Newed RX: Transmitted to Pharmacy New Medications: Cefdinir (Cefdinir) 300 Mg Capsule 300 MG PO BID for 7 Days, #14 CAP Continued Medications: Apixaban (Eliquis) 2.5 Mg Tablet 2.5 MG PO BID, TAB Aspirin (Aspirin EC) 81 Mg Tablet.dr 81 MG PO DAILY, #30 TAB Atorvastatin Calcium (Atorvastatin Calcium) 20 Mg Tablet 20 MG PO HS, TAB Clopidogrel Bisulfate (Clopidogrel) 75 Mg Tablet 75 MG PO DAILY, TAB Gabapentin (Gabapentin) 100 Mg Capsule 100 MG PO HS, CAP Gabapentin (Gabapentin) 100 Mg Capsule 200 MG PO DAILY, CAP TAKES 2 (100MG) TABLETS Hydrocodone/Acetaminophen (Hydrocodone-Acetamin 5-325 mg) 1 Each Tablet 1 EA PO TID PRN for PAIN-MODERATE (5-7), TAB Hydroxychloroquine Sulfate (Hydroxychloroquine Sulfate) 200 Mg Tablet 400 MG PO DAILY, TAB TAKES 2 (200MG) TABS Isosorbide Mononitrate (Isosorbide Mononitrate ER) 30 Mg Tab.er.24h 30 MG PO DAILY, TAB Metoprolol Succinate (Metoprolol Succinate) 100 Mg Tab.er.24h 100 MG PO DAILY, TAB Nitroglycerin (Nitroglycerin) 0.3 Mg Tab.subl 0.3 MG SL PRN PRN for CHEST PAIN (ANGINA), TAB Prednisone (Prednisone) 10 Mg Tab 10 MG PO DAILY, TAB Vilazodone Hydrochloride (Viibryd) 20 Mg Tablet 20 MG PO DAILY, TAB Discontinued Medications: Cefdinir (Cefdinir) 300 Mg Capsule 300 MG PO BID, #10 CAP Lisinopril (Lisinopril) 10 Mg Tablet 10 MG PO DAILY, TAB Patient Instructions Goal/Follow Up Appt: F.u appt with Daniel Meade on Friday @ Noon Patient Instructions: - Please review medication list as some meds have been changed - Stopped Lisinopril due to elevated Cr, Would recommend f.u Renal labs by PCP Activity & Diet Discharge Diet: Cardiac Diet Activity as Tolerated: Yes Copy Copies To 1: Daniel HAYES APRN, HOLLY R MD Mar 13, 2020 12:16
--- NOTE | 2020-03-13 12:33 | Progress Note - Cardiology ---
Cardiology SOAP Progress Note Subjective: Gen weakness and malaise that brought her to the hosp is currently worse No cp or palp or syncope Mild shortness of breath with exertion Denies ankle swelling Denies n/v/d Objective: I&O/Vital Signs 03/13/20 03/13/20 08:00 08:00 Temp 36.3 Pulse 66 Resp 20 B/P (MAP) 153/74 (100) Pulse Ox 100 O2 Delivery Room Air Room Air 03/13/20 00:00 Intake Total 1235 ml Balance 1235 ml Weight (Pounds): 161 Weight (Ounces): 0 Weight (Calculated Kilograms): 73.216152 Constitutional: AAO x 3 Respiratory: chest is bilaterally symmetric, other (good bila air entry) Cardiovascular: regular rate-rhythm, S1 and S2, systolic murmur (soft MARK at card base) Gastrointestional: soft, audible bowel sounds Extremities: no lower extremity edema bilateral Neurologic/Psychiatric: alert, oriented x 3, other (moves all limbs equally) Skin: No rash on exposed areas, No ulcerations on exposed areas Results/Procedures: Labs Laboratory Tests 03/13/20 04:25: White Blood Count 6.0, Red Blood Count 3.33L, Hemoglobin 9.2L, Hematocrit 31L, Mean Corpuscular Volume 92, Mean Corpuscular Hemoglobin 28, Mean Corpuscular Hemoglobin Concent 30L, Red Cell Distribution Width 15.8H, Platelet Count 220, Mean Platelet Volume 12.1, Immature Granulocyte % (Auto) 0, Neutrophils (%) (Auto) 65, Lymphocytes (%) (Auto) 24, Monocytes (%) (Auto) 7, Eosinophils (%) (Auto) 3, Basophils (%) (Auto) 0, Neutrophils # (Auto) 3.9, Lymphocytes # (Auto) 1.4, Monocytes # (Auto) 0.4, Eosinophils # (Auto) 0.2, Basophils # (Auto) 0.0, Immature Granulocyte # (Auto) 0.0, Sodium Level 140, Potassium Level 4.0, Chloride Level 115H, Carbon Dioxide Level 17L, Anion Gap 8, Blood Urea Nitrogen 16, Creatinine 2.14H, Estimat Glomerular Filtration Rate 23, BUN/Creatinine Ratio 7, Glucose Level 72, Calcium Level 8.0L, Corrected Calcium 9.0, Total Bilirubin 0.3, Aspartate Amino Transf (AST/SGOT) 14, Alanine Aminotransferase (ALT/SGPT) 10, Alkaline Phosphatase 62, Total Protein 5.2L, Albumin 2.7L Microbiology 03/08/20 MRSA Screen - Final, Complete MRSA not isolated 03/08/20 Urine Culture - Final, Complete Lactobacillus species Escherichia coli 03/08/20 Blood Culture - Preliminary, Resulted No growth Laboratory Tests 03/12/20 04:30 03/13/20 04:25 A/P: Assessment: Malaise of undetermined etiology CKD-4 Hypertension, not well controlled Mild elevation in troponin level, prob type II VA due to hypertension Coronary artery disease, had a cardiac cath September 2019 with stenting of the c ircumflex artery using Resolute 2.25 x 14 mm, patient had 90 percent stenosis in the posterior lateral branch of the right coronary artery that was treated medically. History of peripheral vascular disease and ischemic foot ulcer. CVA with L homonymous hemianopsia in 2018 - small to moderate-sized area of acute/subacute infarct involving the right occipital lobe without evidence of intra-cranial hemorrhage, brain herniation, or midline shift on CT of the head on 07-15-18 Carotid artery disease - carotid u/s of 07-15-18, there is mod bilat carotid arterial plaque, worse (50-70% stenosis) on the right Intolerant to warfarin due to wide variations in INR. Currently on apixaban H/O cervical cancer for which she has undergone chemo (last tx 12 years ago) H/O sleep apnea, non-compliant with CPAP tx HLD - statin tx followed by her PCP H/O sinus bradycardia and V-tach during ED visit in November 2017 - transferred to [facility] at that time Reports chronic lymphedema to right leg Depression H/o lupus and gout (details unknown) followed and treated by pcp Family h/o CAD (son has had coronary stenting; mother has had CVA) Plan: * Monitor bp. If remains elevated, then augment meds * Currently on ASA and clopidogrel and apixaban. That raises risk of bleeding significantly. D/c ASA. Continue clopidogrel and apixaban * Monitor labs DIMITRI WHITTEN MD FACP FAC CCDS Mar 13, 2020 12:33
--- NOTE | 2020-03-13 13:35 | NUR ---
RD ASSESSMENT PMHx: CAD; CRI; COPD; afib; HLD; CA(cervical); chronic diarrhea; PT INTERACTION: Pt was awake and pleasant during consult for MST score. Pt states current appetite is "miserable" and has been this way for "a while." Note avg PO intake 45% x4d, per chart review. Pt states following a regular diet at home, and has no issues with chewing/swallowing food. Pt states recent issues with nausea, vomiting, and "constant diarrhea." Note last BM was 03/13, and pt currently on bowel regimen of senna BID, per chart review. 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 According to her license, pt had 64# wt loss x2 1/2 years. Note unable to determine recent wt hx, per chart review. Upon visual assessment, pt appears to be adequately nourished with no visible signs of muscle/fat wasting and a BMI of 25.0 (Normal BMI for age). Although pt has had extensive wt loss over the last 2+ years, given PO intake, wt hx, and visual assessment, pt does not meet criteria for malnutrition per ASPEN guidelines. ABNORMAL NUTRITION-RELATED LAB VALUES LOW: Ca 8.0; Pro 5.2; alb 2.7; HIGH: Cl 115; cr 2.15; Est. kcal needs: 5091-6065 kcal | 25-30 kcal/kg Est. Pro needs: 62-74 g Pro | 1.0-1.2 g Pro/kg PES STATEMENT: Inadequate oral intake (NI-2.1) related to loss of appetite, nausea, vomiting, and diarrhea, as evidenced by pt interview, and avg PO intake 45% x4d. INTERVENTION: Continue with current diet order of Regular diet. Discontinue with current supplementation order of Ensure Enlive with meals, per pt preference. Pt states she does not like them and won't drink them. Encouraged pt to eat when able. Will continue to follow and reassess as pt needs, intake, and status change. Nacho LALA, MS RD LD [phone] cell
== END 2020-03-13 16:45 | disposition home or self-care (01) ==
LOC: EDUNIT# 14:52 → ER 14:55 → 4TH 20:06 → INTOOBSV 20:06 → 4TH 20:24
PROVIDERS: ADMIT Internal Medicine; ATTEND Family Medicine
DX: N39.0 Urinary tract infection, site not specified (principal); I48.0 Paroxysmal atrial fibrillation; I13.0 Hypertensive heart and chronic kidney disease with heart failure and stage 1 through stage 4 chronic kidney disease, or unspecified chronic kidney disease; N18.9 Chronic kidney disease, unspecified; N17.9 Acute kidney failure, unspecified; I50.9 Heart failure, unspecified; J44.9 Chronic obstructive pulmonary disease, unspecified; E78.00 Pure hypercholesterolemia, unspecified; F41.9 Anxiety disorder, unspecified; E78.5 Hyperlipidemia, unspecified; D72.829 Elevated white blood cell count, unspecified; F17.210 Nicotine dependence, cigarettes, uncomplicated; Z20.828 Contact with and (suspected) exposure to other viral communicable diseases; Z79.899 Other long term (current) drug therapy; Z79.01 Long term (current) use of anticoagulants; Z79.82 Long term (current) use of aspirin; Z95.5 Presence of coronary angioplasty implant and graft; Z90.710 Acquired absence of both cervix and uterus; Z92.21 Personal history of antineoplastic chemotherapy; Z83.3 Family history of diabetes mellitus
CPT/HCPCS: 71045 ×2; 80053 ×6; 80061; 81000; 82962; 83605; 83615; 83735; 83880; 84145 ×2; 84484 ×2; 85007; 85025 ×5; 85027; 85610; 85730; 86141; 87040; 87077; 87081; 87088; 87186; 87804; 93005; 93041; 93306; 94760; 96361; 96374; 96375; 97162; 97165; 97535; 99284; U0002 ×2; 36415; 87635; G0378

== ENCOUNTER 2020-06-06 14:35 | Emergency (ER) | payer MEDICARE, MEDICAID ==
[~2020-06-06] VITALS: Ht 152 cm; Wt 59.0 kg
[~2020-06-06 14:35] MED LIST changes: -ISOS30TA3 PO; +ISOS30TA82 PO; -LISI10TA2 PO; +LISI10TA25 PO
[2020-06-06] MEDS ORDERED: ACETAMINOPHEN 500 MG TAB (TYLENOL) PO ONE (15:30)
--- NOTE | 2020-06-06 16:02 | Diagnostic Imaging Report ---
PROCEDURE: CT head without contrast. TECHNIQUE: Multiple contiguous axial images were obtained through the brain without the use of intravenous contrast. Auto Exposure Controls were utilized during the CT exam to meet ALARA standards for radiation dose reduction. INDICATION: Head pain and hypertension COMPARISON: CT angiogram head dated 07/15/2018 FINDINGS: There has been expected interval evolutionary changes of the right parafalcine [employer]ORDS CLERK territorial infarct as a chronic finding. No features of focal or generalized cerebral edema. No findings to suggest a new or an evolving ischemic insult. Atrophy and white matter small vessel disease with intracranial atherosclerotic vascular calcifications are stable. No mass or mass effect. The orbits, sinuses and calvarium nonacute. IMPRESSION: Expected evolutionary changes of previous right [employer] REC[employer] CLERK territory stroke. No acute appearing abnormality and no hemorrhage. Dictated by: Dictated on workstation # [id number]
[2020-06-06] MEDS ORDERED: cloNIDine 0.2 MG (CATAPRES) TAB PO ONE (17:00)
--- NOTE | 2020-06-06 17:37 | ED Headache ---
General Chief Complaint: Head/Cervical Problems Stated Complaint: DURAN,H BP Nursing Triage Note: PT AMB TO ROOM 6 PT STATES WAS SEEN AT [facility] AND SENT TO ED FOR FURTHER WORK UP FOR DURAN AND ELEVATED B/P. PT STATES DURAN STARTED YESTERDAY IN FRONT OF HEAD RATES PAIN4/10. STATES WAS WORSE YESTERDAY. PT DENIES N/V OR DIZZINESS Nursing Sepsis Screen: No Definite Risk Source: patient Exam Limitations: no limitations History of Present Illness Date Seen by Provider: Jun 06, 2020 Time Seen by Provider: 15:00 Initial Comments Patient is a 74-year-old female with a previous medical history of hypertension lupus intermittent atrial fibrillation and COPD who presents to the emergency room with a headache onset last evening. Patient states that she was just sitting on the couch when she had a sudden onset of a right-sided, unilateral headache. Patient states that this is not the worst headache of her life. She states she was a little bit nauseated with a headache. She was able to take a hydrocodone which she uses for her chronic lupus pain and get some sleep last night. Patient reports that her headache was at worst a 7 out of 10 and currently is a 4 out of 10. Patient states that she went to [facility] today for a routine appointment and was noted to be quite hypertensive at 170/75. Patient is chronically anticoagulated on Eliquis for her history of atrial fibrillation and the practitioner at the clinic was concerned about the headache and her anticoagulation. She denies any vision changes, speech difficulties or worsening of the weakness on her left side which is pre-existing from an old stroke. Patient states that she has not had any recent illnesses such as fevers, chills, cough or congestion. No problems with bowel or bladder. No sick contacts. All other review of systems reviewed and negative except as stated above. Timing/Duration: 24 hours Severity/Quality: moderate Location: temporal Prior Headaches/Recent Trauma: occasional headaches Associated Symptoms: nausea/vomiting Allergies and Home Medications Allergies Coded Allergies: No Known Drug Allergies (Verified , 10/21/08) Home Medications Apixaban 2.5 Mg Tablet, 2.5 MG PO BID, (Reported) Aspirin 81 Mg Tablet.dr 81 MG PO DAILY Prescribed by: SERINA DEL REAL on 01/27/20 1128 Atorvastatin Calcium 20 Mg Tablet, 20 MG PO HS, (Reported) Cefdinir 300 Mg Capsule, 300 MG PO BID Prescribed by: SIMONE CELESTIN on 03/13/20 1213 Clopidogrel Bisulfate 75 Mg Tablet, 75 MG PO DAILY, (Reported) Gabapentin 100 Mg Capsule, 100 MG PO HS, (Reported) Gabapentin 100 Mg Capsule, 200 MG PO DAILY, (Reported) TAKES 2 (100MG) TABLETS Hydrocodone/Acetaminophen 1 Each Tablet, 1 EA PO TID PRN for PAIN-MODERATE (5- 7), (Reported) Hydroxychloroquine Sulfate 200 Mg Tablet, 400 MG PO DAILY, (Reported) TAKES 2 (200MG) TABS Isosorbide Mononitrate 30 Mg Tab.er.24h, 30 MG PO DAILY, (Reported) Metoprolol Succinate 100 Mg Tab.er.24h, 100 MG PO DAILY, (Reported) Nitroglycerin 0.3 Mg Tab.subl, 0.3 MG SL PRN PRN for CHEST PAIN (ANGINA), (Reported) Prednisone 10 Mg Tab, 10 MG PO DAILY, (Reported) Vilazodone Hydrochloride 20 Mg Tablet, 20 MG PO DAILY, (Reported) Patient Home Medication List Home Medication List Reviewed: Yes Review of Systems Review of Systems Constitutional: see HPI Eyes: No Symptoms Reported Ears, Nose, Mouth, Throat: no symptoms reported Respiratory: no symptoms reported Cardiovascular: no symptoms reported Gastrointestinal: nausea Genitourinary: no symptoms reported : No Musculoskeletal: no symptoms reported Skin: no symptoms reported Psychiatric/Neurological: Headache All Other Systems Reviewed Negative Unless Noted: Yes Past Qikcfsa-Xjwbcy-Kerpdy Hx Patient Social History Alcohol Use: Denies Use Smoking Status: Current Everyday Smoker Type Used: Cigarettes 2nd Hand Smoke Exposure: Yes Recent Infectious Disease Expo: No Recent Hopitalizations: No Immunizations Up To Date Tetanus Booster (TDap): Less than 5yrs PED Vaccines UTD: No Date of Pneumonia Vaccine: Feb 21, 2019 Date of Influenza Vaccine: Jan 25, 2019 Seasonal Allergies Seasonal Allergies: No Past Medical History Surgeries: Yes (MODIFIED RADICAL VULVECTOMY 1991/CHOLECYSTECTOMY) Abdominal, Adenoidectomy, Cardiac, Coronary Stent, Gallbladder, Hysterectomy, Oophorectomy, Orthopedic, Tonsillectomy Respiratory: Yes Pneumonia Currently Using CPAP: No Currently Using BIPAP: No Cardiac: Yes (history of aortic thrombus, gangrene of the toes) Coronary Artery Disease, High Cholesterol, Hypertension Neurological: Yes Neuropathy, Stroke 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 Disorders: Yes (HX OF VULVAR CA--MODIFIED RADICAL VULVECTOMY 1991) 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 Disorders: Denies 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 Sexually Transmitted Disease: No HIV/AIDS: No Genitourinary: Yes (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) Renal Failure Gastrointestinal: Yes Chronic Diarrhea, Gall Bladder Disease Musculoskeletal: Yes Arthritis, Fibromyalgia Endocrine: Yes Lupus HEENT: No Loss of Vision: Left Hearing Impairment: Denies Cancer: Yes Cervical, Vaginal Did You Recieve Any Treatments: Yes What Type of Treatment Did You: Chemotherapy, Radiation, Surgical Intervention Psychosocial: Yes Anxiety Integumentary: Yes (History of "gangrene" of the toes.) Blood Disorders: No Adverse Reaction/Blood Tranf: No Family Medical History Arthritis 19 FATHER 19 MOTHER Cardiovascular disease 19 MOTHER Completed stroke 19 MOTHER maternal grandmother Congenital heart disease 19 MOTHER Diabetes mellitus 19 MOTHER maternal grandmother Hypercholesterolemia 19 MOTHER maternal grandmother Hypertension 19 MOTHER maternal grandmother Myocardial infarction maternal grandmother Tuberculosis paternal great grandfather No Pertinent Family Hx Physical Exam Vital Signs Vital Signs - First Documented 06/06/20 14:48 Temp 36.6 Pulse 61 Resp 18 B/P (MAP) 199/92 (127) Pulse Ox 98 Capillary Refill : Less Than 3 Seconds Height, Weight, BMI Height: 5'0.00" Weight: 161lbs. 0oz. [id number]; 25.00 BMI Method:Stated General Appearance: WD/WN, no apparent distress HEENT: PERRL/EOMI, normal ENT inspection, TMs normal Neck: full range of motion, supple Cardiovascular: regular rate, rhythm Respiratory: lungs clear, normal breath sounds, no respiratory distress, no accessory muscle use Gastrointestinal: normal bowel sounds, non tender, soft Back: normal inspection Extremities: non-tender, normal inspection, no pedal edema Psychiatric: alert, oriented x 3 Crainal Nerves: normal hearing, normal speech, PERRL; No abnormal eye position Coordination/Gait: normal finger to nose Motor/Sensory: no motor deficit, no sensory deficit Progress/Results/Core Measures Results/Orders My Orders Orders - ERIC MILTON MD Ct Head Wo (06/06/20 15:26) Acetaminophen Tablet (Tylenol Tablet) (06/06/20 15:30) Clonidine Tablet (Catapres Tablet) (06/06/20 17:00) Medications Given in ED Vital Signs/I&O 06/06/20 06/06/20 14:48 17:49 Temp 36.6 Pulse 61 53 Resp 18 18 B/P (MAP) 199/92 (127) 166/70 (127) Pulse Ox 98 98 Blood Pressure Mean: 127 Progress Progress Note : Time: 17:32 Progress Note Patient states that she is feeling better, blood pressure is still 170/90 after 0.2 of clonidine however it has only been about 20 minutes and she had the clonidine. Patient is having no ongoing signs of stroke or symptoms related to acute coronary syndrome. She feels better. Patient will be encouraged to follow-up with her primary care physician regarding her blood pressure management. She is comfortable with the plan of care. All questions were sought and answered. Patient is stable for discharge. 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 This likely explains her persistent hypertension secondary to possible sodium load. Departure Impression Primary Impression: Acute headache Qualified Codes: G44.209 - Tension-type headache, unspecified, not intractable Additional Impression: High blood pressure Qualified Codes: I10 - Essential (primary) hypertension Disposition: 01 HOME, SELF-CARE Condition: Stable Departure-Patient Inst. Decision time for Depature: 17:33 Referrals: [facility] (PCP) Primary Care Physician CHRISTA GLORIA (Family) Primary Care Physician Patient Instructions: Headache, Adult (DC), High Blood Pressure Emergencies Add. Discharge Instructions: Please continue to take your blood pressure medications as prescribed. Use [id number] Tylenol or your hydrocodone as needed for headache pain. Please call your primary care physician's office and follow-up this week. Return to the emergency room for any worsening headache especially associated with vision changes, speech difficulties, numbness weakness or any other emergent concerning symptoms. ERIC MILTON MD Jun 06, 2020 17:37
[2020-06-06 17:49] VITALS: BP 166/70
== END 2020-06-06 17:49 | disposition home or self-care (01) ==
LOC: EDUNIT# 14:35 → ER 14:37
DX: R51.9 Headache, unspecified (principal); I10 Essential (primary) hypertension; E78.00 Pure hypercholesterolemia, unspecified; I48.91 Unspecified atrial fibrillation; F17.210 Nicotine dependence, cigarettes, uncomplicated; Z85.41 Personal history of malignant neoplasm of cervix uteri; Z85.44 Personal history of malignant neoplasm of other female genital organs; Z95.5 Presence of coronary angioplasty implant and graft; Z86.73 Personal history of transient ischemic attack (TIA), and cerebral infarction without residual deficits; Z83.3 Family history of diabetes mellitus; Z82.61 Family history of arthritis; Z82.49 Family history of ischemic heart disease and other diseases of the circulatory system; Z79.01 Long term (current) use of anticoagulants; Z79.82 Long term (current) use of aspirin; Z79.52 Long term (current) use of systemic steroids
CPT/HCPCS: 70450

== ENCOUNTER 2020-07-10 23:20 | Observation (INO) | payer MEDICARE, MEDICAID ==
[~2020-07-10] VITALS: Ht 152.4 cm; Wt 57.9 kg
[2020-07-10] MEDS ORDERED: ONDANSETRON 4 MG/2 ML (SDV) Z0FRAN IVP ONE (23:30)
[2020-07-10] MEDS ORDERED: NS IV 1000 ML 1,000 ML IV SCH (23:30)
[2020-07-10] MEDS: NITROGLYCERIN 0.4 MG SL TABS BTL 25'S SL PRN (23:47)
[2020-07-11] VITALS (18 sets, daily range): BP systolic 125–191; BP diastolic 62–111
[2020-07-11] MEDS: NITROGLYCERIN 0.4 MG SL TABS BTL 25'S SL PRN (00:20)
[2020-07-11 00:22] LABS: BASOPHILS # (AUTO) 0.1 10^3/uL (0.0-0.1); BASOPHILS % (AUTO) 0 % (0-10); EOSINOPHILS # (AUTO) 0.1 10^3/uL (0.0-0.3); EOSINOPHILS % (AUTO) 1 % (0-10); HEMATOCRIT 37 % (35-52); HEMOGLOBIN 11.1 g/dL (11.5-16.0); LYMPHOCYTES # (AUTO) 3.3 10^3/uL (1.0-4.0); LYMPHOCYTES % (AUTO) 24 % (12-44); MEAN CORPUSCULAR HEMOGLOBIN 29 pg (25-34); MEAN CORPUSCULAR HGB CONC 30 g/dL (32-36); MEAN CORPUSCULAR VOLUME 94 fL (80-99); MEAN PLATELET VOLUME 11.8 fL (9.0-12.2); MONOCYTES % (AUTO) 7 % (0-12); NEUTROPHILS # (AUTO) 9.3 10^3/uL (1.8-7.8); NEUTROPHILS % (AUTO) 67 % (42-75); PLATELET COUNT 247 10^3/uL (130-400); WHITE BLOOD COUNT 13.9 10^3/uL (4.3-11.0)
[2020-07-11 00:30] LABS: ALBUMIN 3.5 GM/DL (3.2-4.5); CHLORIDE 113 MMOL/L (98-107); SODIUM 142 MMOL/L (135-145)
[2020-07-11] MEDS ORDERED: hydrALAZINE (APESOLINE) 20 MG/ML VIAL IV ONE (00:30)
[2020-07-11 00:32] LABS: AMYLASE 34 U/L (25-125); CALCIUM 8.5 MG/DL (8.5-10.1)
[2020-07-11 00:33] LABS: GLUCOSE 110 MG/DL (70-105); TOTAL PROTEIN 5.8 GM/DL (6.4-8.2)
[2020-07-11 00:34] LABS: CARBON DIOXIDE 14 MMOL/L (21-32)
[2020-07-11 00:35] LABS: BILIRUBIN,TOTAL 0.3 MG/DL (0.1-1.0)
[2020-07-11 00:36] LABS: ALKALINE PHOSPHATASE 60 U/L (40-136); CREATININE SERUM 1.69 MG/DL (0.60-1.30); GFR ESTIMATED 30
[2020-07-11 00:38] LABS: BUN/CREATININE RATIO 13
[2020-07-11 00:39] LABS: ALANINE AMINOTRANSFERASE 6 U/L (0-55); MAGNESIUM 1.7 MG/DL (1.6-2.4)
[2020-07-11 00:41] LABS: CREATINE KINASE 19 U/L (29-168); LIPASE 40 U/L (8-78)
[2020-07-11 00:47] LABS: CREATINE KINASE MB 0.6 NG/ML (<6.6)
[2020-07-11] MEDS ORDERED: ONDANSETRON 4 MG/2 ML (SDV) Z0FRAN IVP ONE (01:00)
[2020-07-11] MEDS ORDERED: PANTOPRAZOLE 40 MG (PROTONIX) VIAL IV ONE (01:00)
[2020-07-11] MEDS ORDERED: NS IV 1000 ML 1,000 ML IV SCH (01:15)
[2020-07-11] MEDS ORDERED: SCOPOLAMINE 1.5 MG (TRANSDERM-SCOP) PATCH TD ONE (01:15)
--- NOTE | 2020-07-11 02:50 | ED Chest Pain ---
General Chief Complaint: Chest Pain Stated Complaint: CP Nursing Triage Note: PT TO ED VIA EMS FROM HOME. PT C/O CHEST PAIN WELL ABD PAIN ONSET APPROX 2 HOURS AGO. PT WAS GIVEN 324 ASA PER EMS AND TOOK 2 NITRO AT HOME PRIOR TO EMS ARRIVAL. Nursing Sepsis Screen: No Definite Risk Source: patient History of Present Illness Date Seen by Provider: Jul 10, 2020 Time Seen by Provider: 23:19 Initial Comments PT ARRIVES VIA EMS FROM HOME C/O CHEST PAIN, RADIATING INTO LEFT JAW--BEGAN 2 HOURS AGO, AT REST ALSO HAVING SOME EPIGASTRIC PAIN C/O NAUSEA AND DRY HEAVES C/O MILD SHORTNESS OF BREATH NO SWEATS NO SWELLING IN LEGS/ FEET NO FEVER OR RECENT ILLNESS PT TOOK 2 NTG AT HOME WITH SOME RELIEF EMS GAVE ASPIRIN 324 MG PRIOR TO ARRIVAL PT HAS HISTORY OF CAD WITH STENT TO CIRCUMFLEX X 1 09/2019--HAS HAD NSTEMI IN E PAST PT HAS BEEN REFERRED FOR CABG IN THE PAST--AT LEAST SINCE 2008, PER OLD RECORDS, PT OPTED CONSERVATIVE MANAGEMENT AND HAS CONTINUED TO DECLINE BYPASS SURGERY PT HAS HISTORY OF CVA/TIA WELL HAS DIFFUSE ASVD PT IS MAINTAINED ON ELIQUIS PT CONTINUES TO SMOKE UP TO 1 PPD STATES SHE THINKS SHE HAD A TIA A COUPLE OF WEEKS AGO, WITH LEFT EYE VISION CHANGES SAW MED SURG NURSE AT [facility] ON Friday07/07/20 AND WAS TOLD THEY WOULD SCHEDULE HER TO HAVE OUTPATIENT CT OF HER HEAD, BUT THIS HAS NOT BEEN DONE YET. PCP: [facility] SOLUTION ENGINEER: DR. WHITTEN Allergies and Home Medications Allergies Coded Allergies: No Known Drug Allergies (Verified , 10/21/08) Home Medications Apixaban 2.5 Mg Tablet, 2.5 MG PO BID, (Reported) Aspirin 81 Mg Tablet.dr, 81 MG PO DAILY Prescribed by: SERINA DEL REAL on 01/27/20 1128 Atorvastatin Calcium 20 Mg Tablet, 20 MG PO HS, (Reported) Cefdinir 300 Mg Capsule, 300 MG PO BID Prescribed by: SIMONE CELESTIN on 03/13/20 1213 Clopidogrel Bisulfate 75 Mg Tablet, 75 MG PO DAILY, (Reported) Gabapentin 100 Mg Capsule, 100 MG PO HS, (Reported) Gabapentin 100 Mg Capsule, 200 MG PO DAILY, (Reported) TAKES 2 (100MG) TABLETS Hydrocodone/Acetaminophen 1 Each Tablet, 1 EA PO TID PRN for PAIN-MODERATE (5- 7), (Reported) Hydroxychloroquine Sulfate 200 Mg Tablet, 400 MG PO DAILY, (Reported) TAKES 2 (200MG) TABS Isosorbide Mononitrate 30 Mg Tab.er.24h, 30 MG PO DAILY, (Reported) Metoprolol Succinate 100 Mg Tab.er.24h, 100 MG PO DAILY, (Reported) Nitroglycerin 0.3 Mg Tab.subl, 0.3 MG SL PRN PRN for CHEST PAIN (ANGINA), (Reported) Prednisone 10 Mg Tab, 10 MG PO DAILY, (Reported) Vilazodone Hydrochloride 20 Mg Tablet, 20 MG PO DAILY, (Reported) Patient Home Medication List Home Medication List Reviewed: Yes Review of Systems Review of Systems Constitutional: no symptoms reported; No chills, No diaphoresis, No dizziness, No fever EENTM: Other (ONGOING VISION CHANGES LEFT EYE) Respiratory: See HPI; Denies Cough; Shortness of Air Cardiovascular: See HPI, Chest Pain; Denies Edema, Denies Irregular Heart Rate, Denies Lightheadedness, Denies Palpitations, Denies Syncope Gastrointestinal: See HPI, Abdominal Pain, Nausea, Vomiting (DRY HEAVES) Genitourinary: No Symptoms Reported Musculoskeletal: no symptoms reported Skin: no symptoms reported Psychiatric/Neurological: No Symptoms Reported Endocrine: No Symptoms Reported Hematologic/Lymphatic: No Symptoms Reported Past Gdyodil-Avwdbn-Lylxbg Hx Past Med/Social Hx: Reviewed and Corrections made Patient Social History Alcohol Use: Rarely Uses Smoking Status: Current Everyday Smoker (1 PPD) Type Used: Cigarettes 2nd Hand Smoke Exposure: Yes Recent Infectious Disease Expo: No Recent Hopitalizations: No Immunizations Up To Date Tetanus Booster (TDap): Less than 5yrs PED Vaccines UTD: No Date of Pneumonia Vaccine: Feb 21, 2019 Date of Influenza Vaccine: Jan 25, 2019 Seasonal Allergies Seasonal Allergies: No Past Medical History Surgeries: Yes (MODIFIED RADICAL VULVECTOMY 1991/CHOLECYSTECTOMY;CARDIAC CATHS- STENT X 1) Abdominal, Adenoidectomy, Cardiac, Coronary Stent, Gallbladder, Hysterectomy, Oophorectomy, Orthopedic, Tonsillectomy Respiratory: Yes (REFUSES TO WEAR CPAP) Pneumonia, Sleep Apnea Currently Using CPAP: No Currently Using BIPAP: No Cardiac: Yes (HX AORTIC/RENAL ART THROMBUS;GANGRENE/TOES;V- TACH;BRADYCARDIA;ASVD) Coronary Artery Disease, Heart Attack, High Cholesterol, Hypertension, Irregular Heartbeat Neurological: Yes (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) Neuropathy, Stroke, TIA 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 Disorders: Yes (HX OF CERVICAL AND VULVAR CA--MODIFIED RADICAL VULVECTOMY 1991;HYST/BSO) 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 Disorders: Denies 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, Menopausal Sexually Transmitted Disease: No HIV/AIDS: No Genitourinary: Yes (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) Bladder Infection, Renal Failure Gastrointestinal: Yes (S/P CHOLECYSTECTOMY) Gastroesophageal Reflux, Chronic Diarrhea, Hiatal Hernia, Gall Bladder Disease Musculoskeletal: Yes (GANGRENE OF TOES-TX WITH ANTIBIOTICS; ISCHEMIC FOOT ULCER) Arthritis, Fibromyalgia Endocrine: Yes Lupus HEENT: No Loss of Vision: Left Hearing Impairment: Denies Cancer: Yes Cervical, Vaginal Did You Recieve Any Treatments: Yes What Type of Treatment Did You: Chemotherapy, Radiation, Surgical Intervention CERVICAL AND VULVAR CANCER--S/P HYSTERECTOMY/BSO AND MODIFIED RADICAL VULVECTOMY Psychosocial: Yes Anxiety Integumentary: Yes (History of "gangrene" of the toes.; ISCHEMIC FOOT ULCER) Blood Disorders: No Adverse Reaction/Blood Tranf: No Family Medical History Arthritis 19 FATHER 19 MOTHER Cardiovascular disease 19 MOTHER Completed stroke 19 MOTHER maternal grandmother Congenital heart disease 19 MOTHER Diabetes mellitus 19 MOTHER maternal grandmother Hypercholesterolemia 19 MOTHER maternal grandmother Hypertension 19 MOTHER maternal grandmother Myocardial infarction maternal grandmother Tuberculosis paternal great grandfather No Pertinent Family Hx PAST SURGICAL HISTORY: -CARDIAC CATHS-STENT X 1 TO CIRCUMFLEX 09/2019 -MODIFIED RADICAL VULVECTOMY 1991 -HYSTERECTOMY/BILATERAL SALPINGO-OOPHORECTOMY -CHOLECYSTECTOMY -RIGHT ANKLE FX/ORIF -VENTRAL HERNIA REPAIR -DENTAL EXTRACTIONS -TONSILLECTOMY/ADENOIDECTOMY ADDITIONAL PAST MEDICAL HISTORY: -NSTEMI -HAS BEEN REFERRED TO CARDIOVASCULAR SURGEON FOR BYPASS, BUT OPTED FOR CONSERVATIVE MANAGEMENT -DIFFUSE ASVD -PERIPHERAL ARTERY DISEASE WITH ISCHEMIC FOOT ULCER IN PAST -RIGHT RENAL ARTERY THROMBUS--NO SURGICAL TREATMENT -BRADYCARDIA--VENTRICULAR TACHYCARDIA -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 0oz. 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 Norm as Tested Skin: Normal Color, Warm/Dry Progress/Results/Core Measures Results/Orders Lab Results Laboratory Tests Test 07/10/20 00:15 Range/Units White Blood Count 13.9 H 4.3-11.0 10^3/uL Red Blood Count 3.89 3.80-5.11 10^6/uL Hemoglobin 11.1 L 11.5-16.0 g/dL Hematocrit 37 35-52 % Mean Corpuscular Volume 94 80-99 fL Mean Corpuscular Hemoglobin 29 25-34 pg Mean Corpuscular Hemoglobin Concent 30 L 32-36 g/dL Red Cell Distribution Width 16.0 H 10.0-14.5 % Platelet Count 247 130-400 10^3/uL Mean Platelet Volume 11.8 9.0-12.2 fL Immature Granulocyte % (Auto) 0 % Neutrophils (%) (Auto) 67 42-75 % Lymphocytes (%) (Auto) 24 12-44 % Monocytes (%) (Auto) 7 0-12 % Eosinophils (%) (Auto) 1 0-10 % Basophils (%) (Auto) 0 0-10 % Neutrophils # (Auto) 9.3 H 1.8-7.8 10^3/uL Lymphocytes # (Auto) 3.3 1.0-4.0 10^3/uL Monocytes # (Auto) 1.0 0.0-1.0 10^3/uL Eosinophils # (Auto) 0.1 0.0-0.3 10^3/uL Basophils # (Auto) 0.1 0.0-0.1 10^3/uL Immature Granulocyte # (Auto) 0.1 0.0-0.1 10^3/uL Sodium Level 142 135-145 MMOL/L Potassium Level 4.0 3.6-5.0 MMOL/L Chloride Level 113 H 98-107 MMOL/L Carbon Dioxide Level 14 L 21-32 MMOL/L Anion Gap 15 H 5-14 MMOL/L Blood Urea Nitrogen 22 H 7-18 MG/DL Creatinine 1.69 H 0.60-1.30 MG/DL Estimat Glomerular Filtration Rate 30 BUN/Creatinine Ratio 13 Glucose Level 110 H 70-105 MG/DL Calcium Level 8.5 8.5-10.1 MG/DL Corrected Calcium 8.9 8.5-10.1 MG/DL Magnesium Level 1.7 1.6-2.4 MG/DL Total Bilirubin 0.3 0.1-1.0 MG/DL Aspartate Amino Transf (AST/SGOT) 9 5-34 U/L Alanine Aminotransferase (ALT/SGPT) 6 0-55 U/L Alkaline Phosphatase 60 40-136 U/L Total Creatine Kinase 19 L 29-168 U/L Creatine Kinase MB 0.6 <6.6 NG/ML Myoglobin 69.7 10.0-92.0 NG/ML Troponin I < 0.028 <0.028 NG/ML B-Type Natriuretic Peptide 510.7 H <100.0 PG/ML Total Protein 5.8 L 6.4-8.2 GM/DL Albumin 3.5 3.2-4.5 GM/DL Amylase Level 34 25-125 U/L Lipase 40 8-78 U/L My Orders Orders - KEITH FERNANDEZ DO Ed Iv/Invasive Line Start (07/10/20 23:24) Amylase (07/10/20 23:24) BNP (07/10/20 23:24) Cbc With Automated Diff (07/10/20 23:24) Comprehensive Metabolic Panel (07/10/20 23:24) Creatine Kinase (07/10/20 23:24) Creatine Kinase Mb (07/10/20 23:24) Lipase (07/10/20 23:24) Magnesium (07/10/20 23:24) Protime With Inr (07/10/20 23:24) Partial Thromboplastin Time (07/10/20 23:24) Myoglobin Serum (07/10/20 23:24) Troponin I (07/10/20 23:24) Ed Iv/Invasive Line Start (07/10/20 23:24) Ns Iv 1000 Ml (Sodium Chloride 0.9%) (07/10/20 23:30) Ondansetron Injection (Zofran Injectio (07/10/20 23:30) Chest 1 View, Ap/Pa Only (07/10/20 23:24) Ekg Tracing (07/10/20 23:24) O2 (07/10/20 23:24) Monitor-Rhythm Ecg Trace Only (07/10/20 23:24) Ed Iv/Invasive Line Start (07/10/20 23:24) Nitroglycerin 0.4 Mg Btl 25's (Nitrostat (07/10/20 23:30) Hydralazine Injection (Apresoline Inject (07/11/20 00:30) Ondansetron Injection (Zofran Injectio (07/11/20 01:00) Pantoprazole Injection (Protonix Injecti (07/11/20 01:00) Ct Chest/Abdomen/Pelvis Wo (07/11/20 01:01) Scopolamine Patch (Transderm-Scop Patch) (07/11/20 01:15) Ed Iv/Invasive Line Start (07/11/20 01:08) Ns Iv 1000 Ml (Sodium Chloride 0.9%) (07/11/20 01:15) Medications Given in ED Current Medications Medications Dose Ordered Sig/Kenneth Route Start Time Stop Time Status Last Admin Dose Admin Hydralazine HCl 10 mg ONCE ONCE IV 07/11/20 00:30 07/11/20 00:31 DC 07/11/20 00:29 10 MG Nitroglycerin 0.4 mg UD PRN SL 07/10/20 23:30 07/11/20 00:20 0.4 MG Ondansetron HCl 8 mg ONCE ONCE IVP 07/10/20 23:30 07/10/20 23:31 DC 07/10/20 23:41 8 MG Ondansetron HCl 8 mg ONCE ONCE IVP 07/11/20 01:00 07/11/20 01:02 DC 07/11/20 01:09 8 MG Pantoprazole 40 mg ONCE ONCE IV 07/11/20 01:00 07/11/20 01:02 DC 07/11/20 01:09 40 MG Scopolamine 1.5 mg ONCE ONCE TD 07/11/20 01:15 07/11/20 01:16 DC 07/11/20 01:09 1.5 MG Vital Signs/I&O 07/10/20 07/11/20 23:49 00:50 Pulse 50 Resp 18 B/P (MAP) 243/104 (150) Pulse Ox 100 100 O2 Delivery Room Air Nasal Cannula O2 Flow Rate 2.00 Blood Pressure Mean: 150 Progress Progress Note : Progress Note GIVEN NTG X 2 WITH RELIEF OF PAIN GIVEN HYDRALAZINE FOR ELEVATED BLOOD PRESSURE--BP DOWN GAVE ZOFRAN AND SCOPOLAMINE PATCH AND PROTONIX WITH RELIEF OF NAUSEA/DRY HEAVES PT IS SYMPTOM-FREE AT TIME OF ADMIT. NO DETERIORATION IN PT'S CONDITION DURING ER STAY Initial ECG Impression Date: Jul 10, 2020 Initial ECG Impression Time: 23:28 Initial ECG Rate: 48 Initial ECG Rhythm: Normal Sinus Initial ECG Impression: Nonspecific Changes Diagnostic Imaging Comments CXR--? MILD CHF? PENDING RADIOLOGIST REVIEW CT CHEST/ABDOMEN/PELVIS--HIATAL HERNIA; 5 MM NODULE IN RLL; DIFFUSE ASVD; SMALL UNRUPTURED INFRARENAL ABDOMINAL AORTIC ANEURYSM 3.3 X 3 CM, OTHER NON-ACUTE FINDINGS--PER [facility] VIA FAX AT 0236 Reviewed: Reviewed by Me Departure Communication (Admissions) 0250--SPOKE WITH DR. DEL REAL, HOSPITALIST FOR [facility], ACCEPTS PT FOR ADMIT. Impression Primary Impression: Chest pain Additional Impressions: Hypertension Epigastric pain Hiatal hernia HX OF CAD WITH STENT HX OF CVA/TIA ELIQUIS THERAPY Chronic renal insufficiency HX OF RENAL ARTERY THROMBUS DIFFUSE ASVD SMALL ABDOMINAL AORTIC ANEURYSM Hx of non-ST elevation myocardial infarction (NSTEMI) Disposition: ADMITTED INPATIENT Condition: Improved Admissions Decision to Admit Reason: Admit from ER (General) Decision to Admit/Date: Jul 11, 2020 Time/Decision to Admit Time: 02:50 Departure-Patient Inst. Ref[place]: [facility] [place]) Primary Care Physician CHRISTA GLORIA (Family) Primary Care Physician KEITH FERNANDEZ DO Jul 11, 2020 02:50
[2020-07-11] MEDS ORDERED: NS IV 1000 ML 1,000 ML ONE (04:31)
[2020-07-11] MEDS: NS IV 1000 ML 1,000 ML IV SCH ×2 (04:45→15:38)
[2020-07-11] MEDS ORDERED: hydrALAZINE (APESOLINE) 20 MG/ML VIAL IV PRN (05:15)
[2020-07-11] MEDS ORDERED: ONDANSETRON 4 MG/2 ML (SDV) Z0FRAN IV PRN (05:15)
[2020-07-11] MEDS ORDERED: NITROGLYCERIN 0.4 MG SL TABS BTL 25'S SL PRN ×2 (05:15→20:30)
--- NOTE | 2020-07-11 06:02 | Diagnostic Imaging Report ---
EXAMINATION: Portable erect AP chest at 1140 PM INDICATION: Chest pain The borderline cardiomegaly seen on the prior exam of 02/22/2020 is again evident and not significantly changed. The central pulmonary vascularity is prominent but also stable when compared to the prior exam. There is no evidence for failure, pneumonia or pleural effusion at this time. The mediastinum is not widened. The osseous structures are intact. IMPRESSION: 1. There is borderline cardiomegaly but there is no evidence for an acute cardiopulmonary abnormality. 2. Reportedly, CT of the chest, abdomen, and pelvis is pending for further study. Dictated by: Dictated on workstation # [id number]
--- NOTE | 2020-07-11 06:13 | Diagnostic Imaging Report ---
PROCEDURE: CT chest, abdomen, and pelvis without contrast. TECHNIQUE: Multiple contiguous axial images were obtained through the chest, abdomen, and pelvis without the use of intravenous contrast. Auto Exposure Controls were utilized during the CT exam to meet ALARA standards for radiation dose reduction. INDICATION: Chest and abdominal pain. There are no prior CT chest examinations available for comparison. FINDINGS: The heart is enlarged and there are extensive coronary artery calcifications evident. The aorta is not abnormally dilated. There is no obvious mediastinal or hilar adenopathy. The thyroid gland was partially obscured by streak artifact. There is no obvious breast mass. There are mild emphysematous changes involving both lungs. There is no sign of failure, pneumonia or pleural effusion. There is a 6 mm noncalcified nodular density in the periphery of the right lower lobe (image [id number]). This finding was also present on the prior CT abdomen/pelvis exam of 02/12/2018 and has not changed. Consequently, I do suspect this is a benign process. The previous CT abdomen/pelvis exam of 02/12/2018 also failed to show any sign of an acute abnormality of the abdomen or pelvis. There did be a hiatal hernia. On this study, the hiatal hernia has increased in size and now measures 4.0 x 4.0 cm. As on the prior exam, there are calcifications in both the liver and spleen. The liver and spleen are unremarkable for an acute abnormality. In the interval since the previous study, mild aneurysmal dilatation of the infrarenal abdominal aorta has developed. The aorta measures 2.8 x 3.4 cm. There is no periaortic fluid collection to suggest an acute abnormality. Also as noted on the prior exam, the right kidney is atrophic. Left kidney is unremarkable. The gallbladder and uterus are surgically absent. There is no pelvic mass or free fluid collection evident. The urinary bladder is grossly unremarkable. The appendix was not well-visualized but there are no indirect signs of acute appendicitis. The bone windows show no sign of a fracture or destructive lesion. As noted on the previous exam, there is degenerative disc and bony disease throughout the lumbar spine as well as levoscoliosis of the lumbar spine. IMPRESSION: 1. There is no acute abnormality of the chest, abdomen or pelvis. 2. There is cardiomegaly and coronary artery disease. 3. The small nodule in the periphery of the right lung base is stable compared when to prior exam and consequently most likely benign. 5. Mild aneurysmal dilatation of the infrarenal abdominal aorta has developed since the prior exam. 6. The hiatal hernia seen previously is again evident and does seem somewhat larger. 7. I agree with [facility] interpretation of this exam. Dictated by: Dictated on workstation # [id number]
[2020-07-11 06:36] LABS: INR 1.1 (0.8-1.4); PROTHROMBIN TIME PATIENT 14.1 SEC (12.2-14.7)
[2020-07-11 06:37] LABS: TRIGLYCERIDES 121 MG/DL (<150); VLDL CHOLESTEROL 24 MG/DL (5-40)
[2020-07-11 06:42] LABS: CHOLESTEROL 119 MG/DL (< 200)
[2020-07-11 06:43] LABS: HDL CHOLESTEROL 41 MG/DL (40-60)
[2020-07-11] MEDS: fentaNYL INJ 100 MCG/2 ML AMP IV PRN ×2 (07:53→20:06)
[2020-07-11] MEDS: ASPIRIN E.C. 81 MG (ECOTRIN) TAB PO SCH (07:54)
[2020-07-11] MEDS: PANTOPRAZOLE 40 MG (PROTONIX) VIAL IV SCH (07:54)
--- NOTE | 2020-07-11 08:04 | Consultation-Cardiology ---
HPI-Cardiology Cardiology Consultation: Date of Consultation 07/11/20 Time Seen by a Provider: 08:15 Date of Admission 07-10-20 Attending Physician Slime Mosquera DO Admitting Physician [facility] Consulting Physician Loly Olvera MD HPI: Chief Complaint: Chest pain Nausea Ms. Parker is a 75 yr old female admitted to [facility] from the ED with c/o localized, left sided chest pressure which started yesterday. She states the discomfort was mild to mod and persisted for several hours before resolving. No alleviating or exacerbating factors. She reports nausea which has persisted since yesterday. She reports abdominal tenderness. She reports 2 days ago she woke up from sleep "drenched in sweat". No c/o vomiting or diarrhea. She has chronic SOB which is unchanged. No c/o palpitations. No c/o syncope, near syncope or LE swelling. Review of Systems-Cardiology Review of Systems Constitutional: As described under HPI Eyes: No vision change Ears/Nose/Throat: No epistaxis, No recent hearing loss Respiratory: As described under HPI Cardiovascular: As described under HPI Gastrointestinal: As described under HPI Genitourinary: No dysuria, No hematuria Musculoskeletal: no symptoms reported Skin: No rash on exposed areas, No ulcerations on exposed areas Psychiatric/Neurological: No anxiety, No depression, No seizure, No focal weakness, No syncope Hematologic: No bleeding abnormalities [facility] Hx Patient Social History Smoking Status: Current Everyday Smoker 2nd Hand Smoke Exposure: Yes Have you traveled recently?: No Alcohol Use?: No Pt feels they are or have been: No Tobacco type used: Cigarettes Immunizations Up To Date Tetanus Booster (TDap): Less than 5yrs Date of Pneumonia Vaccine: Feb 21, 2019 Date of Influenza Vaccine: Feb 11, 2020 Past Medical History PMH As described under Assessment. Family Medical History Family Medical History: She reports her son has CAD with placement of 2 stents in the past. She reports "all the women in my family have had strokes". Family History: Arthritis 19 FATHER 19 MOTHER Cardiovascular disease 19 MOTHER Completed stroke 19 MOTHER maternal grandmother Congenital heart disease 19 MOTHER Diabetes mellitus 19 MOTHER maternal grandmother Hypercholesterolemia 19 MOTHER maternal grandmother Hypertension 19 MOTHER maternal grandmother Myocardial infarction maternal grandmother Tuberculosis paternal great grandfather Allergies and Home Medications Allergies Coded Allergies: No Known Drug Allergies (Verified , 10/21/08) Home Medications Apixaban 2.5 Mg Tablet, 2.5 MG PO BID, (Reported) FILLED 05-16-2020 #60/30 DAY SUPPLY Last Action: Continued Cholecalciferol (Vitamin D3) 25 Mcg Tablet, 25 MCG PO DAILY, (Reported) Last Action: Continued Hydrocodone/Acetaminophen 1 Each Tablet, 1 EA PO TID PRN for PAIN-MODERATE (5- 7), (Reported) Last Action: Continued Isosorbide Mononitrate 60 Mg Tab, 60 MG PO DAILY, (Reported) LAST FILLED 05-16-2020 #30/30 DAY SUPPLY Last Action: Continued Metoprolol Succinate 100 Mg Tab.er.24h, 100 MG PO DAILY, (Reported) Last Action: Continued Multivitamin 1 Each Tablet, 1 EACH PO DAILY, (Reported) Last Action: Converted Nitroglycerin 0.4 Mg Tab.subl, 0.4 MG PO UD PRN for CHEST PAIN (ANGINA), (Reported) Last Action: Continued Prednisone 10 Mg Tab, 10 MG PO DAILY, (Reported) Last Action: Continued Vilazodone Hydrochloride 20 Mg Tablet, 20 MG PO DAILY, (Reported) Last Action: Converted Physical Exam-Cardiology Physical Exam Vital Signs/I&O 07/12/20 07/12/20 07/12/20 07/12/20 00:00 01:00 04:00 06:32 Temp 37.2 36.6 Pulse 70 56 75 81 Resp 22 14 B/P (MAP) 178/73 (108) 166/66 (99) Pulse Ox 99 97 O2 Delivery Room Air Room Air 07/12/20 07/12/20 07:20 09:04 Temp 37.0 Pulse 81 Resp 20 B/P (MAP) 163/72 (102) Pulse Ox 98 97 O2 Delivery Room Air Room Air 07/12/20 00:00 Intake Total 220 ml Balance 220 ml Capillary Refill : Less Than 3 Seconds Constitutional: AAO x 3, well-developed, well-nourished HEENT: PERRL, hearing is well preserved, oral hygience is good Neck: carotid bruit, carotid pulses are 2 + bilaterally Respiratory: No accessory muscle use, No respiratory distress; chest expansion is symmetric, chest is bilaterally symmetric, lungs clear to auscultation Cardiovascular: regular rate-rhythm; No JVD; S1 and S2 Gastrointestinal: tender, soft; No guarding; audible bowel sounds Extremities: no lower extremity edema bilateral Neurologic/Psychiatric: grossly intact (moves all extremities) Skin: No rash on exposed areas, No ulcerations on exposed areas Data Review Labs Laboratory Tests 07/12/20 05:31: White Blood Count 13.7H, Red Blood Count 3.64L, Hemoglobin 10.6L, Hematocrit 35, Mean Corpuscular Volume 96, Mean Corpuscular Hemoglobin 29, Mean Corpuscular Hemoglobin Concent 31L, Red Cell Distribution Width 16.1H, Platelet Count 187, Mean Platelet Volume 12.5H, Immature Granulocyte % (Auto) 0, Neutrophils (%) (Auto) 80H, Lymphocytes (%) (Auto) 11L, Monocytes (%) (Auto) 8, Eosinophils (%) (Auto) 0, Basophils (%) (Auto) 0, Neutrophils # (Auto) 10.9H, Lymphocytes # (Auto) 1.6, Monocytes # (Auto) 1.1H, Eosinophils # (Auto) 0.1, Basophils # (Auto) 0.0, Immature Granulocyte # (Auto) 0.1, Sodium Level 142, Potassium Level 3.8, Chloride Level 115H, Carbon Dioxide Level 15L, Anion Gap 12, Blood Urea Nitrogen 16, Creatinine 1.45H, Estimat Glomerular Filtration Rate 35, BUN/Cr eatinine Ratio 11, Glucose Level 81, Calcium Level 8.1L, Corrected Calcium 8.7, Total Bilirubin 0.7, Aspartate Amino Transf (AST/SGOT) 14, Alanine Aminotransferase (ALT/SGPT) 6, Alkaline Phosphatase 63, Total Protein 5.5L, Albumin 3.2 Radiology NAME: EUGENIO PARKER [facility] REC#: [id number] PT STATUS: ADM Juventino : 1945 PHYSICIAN: KEITH FERNANDEZ DO ADMIT DATE: 07/11/20/[facility] Draft Date of Exam:07/10/20 CHEST 1 VIEW, AP/PA ONLY EXAMINATION: Portable erect AP chest at 1140 PM INDICATION: Chest pain The borderline cardiomegaly seen on the prior exam of 02/22/2020 is again evident and not significantly changed. The central pulmonary vascularity is prominent but also stable when compared to the prior exam. There is no evidence for failure, pneumonia or pleural effusion at this time. The mediastinum is not widened. The osseous structures are intact. IMPRESSION: 1. There is borderline cardiomegaly but there is no evidence for an acute cardiopulmonary abnormality. 2. Reportedly, CT of the chest, abdomen, and pelvis is pending for further study. Dictated on workstation # [id number] Dict: 07/11/20 0553 Trans: 07/11/20 0601 VERONICA [id number] Interpreted by: KADEEM CREWS MD Electronically signed by: ECG Impression ECG Initial ECG Rhythm: S.Leander A/P-Cardiology Assessment/Admission Diagnosis Chest pain of undetermined etiology Nausea/abdominal tenderness of undetermined etiology - medical services managing CAD - Card cath of 10/19/19: 90% mid vessel stenosis of the mid to distal left circumflex artery and 90% stenosis of the posterolateral system of the right coronary. The rest of the coronary arteries exhibit diffuse moderate disease and heavy coronary calcification. S/P successful stenting of the mid to distal left circumflex with Resolute 2.25 x 14 mm stent. 90% stenosis of the distal posterior lateral of the RCA where the vessel is of relatively small caliber. CKD 4. Appears stable after cath of 10/19/19 Recent unintentional weight loss of undetermined etiology, managed by her pcp Hypertension CVA with L homonymous hemianopsia - small to moderate-sized area of acute/subacute infarct involving the right occipital lobe. There is no evidence of intra-cranial hemorrhage, brain herniation, or midline shift on CT of the head on 07-15-18. Management of CVA is by her pcp Carotid artery disease - carotid u/s of 07-15-18, there is mod bilat carotid arterial plaque, worse (50-70% stenosis) on the right Ischemic cardiomyopathy. Echo of May 05, 2019: LVEF 50-55%, mild MR. RVSP 20 mmHg Intolerant to warfarin due to wide variations in INR. Currently on apixaban H/O cervical cancer for which she has undergone chemo (last tx 12 years ago) H/O sleep apnea, non-compliant with CPAP tx HLD - statin tx followed by her PCP H/O sinus bradycardia and V-tach during ED visit in November 2017 - transferred to [facility] at that time Chronic diarrhea Reports chronic lymphedema of the right leg Bilat foot paresthesias due to peripheral neuropathy Depression H/o lupus and gout (details unknown) followed and treated by pcp Family h/o CAD (son has had coronary stenting; mother has had CVA) Discussion and Recomendations Chest pain of undetermined etiology - no evidence of ACS thus far Advise MPI to eval perfusion Continue Plavix d/t recent stenting in September 2019 Management of nausea/abdominal discomfort and increasing HH is with medical services Echocardiogram to eval structure and function Monitor lab closely Continue home antihypertensives Further recs will be based on her hospital course We would like to thank medical services for this consult TATY ENGLE Jul 11, 2020 08:04
[2020-07-11] MEDS ORDERED: REGADENOSON 0.4 MG/5 ML SYR (LEXISCAN) IV ONE ×2 (08:45→13:08)
[2020-07-11] MEDS: ACETAMINOPHEN 325 MG TABLET PO PRN (08:45)
[2020-07-11] MEDS: CLOPIDOGREL 75 MG (PLAVIX) TABLET PO SCH (09:00)
--- NOTE | 2020-07-11 10:38 | Consultation-Cardiology ---
HPI-Cardiology Cardiology Consultation: Date of Consultation 07/11/20 Time Seen by a Provider: 09:00 Date of Admission Attending Physician Slime Del Real DO Admitting Physician [place] Consulting Physician DIMITRI WHITTEN MD, MA, FACP, FACC, FSCAI, CCDS HPI: Chief Complaint: CC: Chest pain, Abd discomfort, Nausea Ms. Taveras is a 75 yr old female admitted to [facility] from the ED with c/o localized, left sided chest pressure which started yesterday. She states the discomfort was mild to mod and persisted for several hours before resolving. No alleviating or exacerbating factors. She reports a vague abdominal discomfort, malaise and nausea which has persisted since yesterday. She reports abdominal tenderness. She reports 2 days ago she woke up from sleep "drenched in sweat". No c/o vomiting or diarrhea. She has chronic SOB which is unchanged. No c/o palpitations. No c/o syncope, near syncope or LE swelling. Review of Systems-Cardiology Review of Systems Constitutional: As described under HPI Eyes: No vision change Ears/Nose/Throat: No epistaxis, No recent hearing loss Respiratory: As described under HPI Cardiovascular: As described under HPI Gastrointestinal: As described under HPI Genitourinary: No dysuria, No hematuria Musculoskeletal: no symptoms reported Skin: No rash on exposed areas, No ulcerations on exposed areas Psychiatric/Neurological: No anxiety, No depression, No seizure, No focal weakness, No syncope Hematologic: No bleeding abnormalities [facility]wz[facility] Hx Patient Social History Smoking Status: Current Everyday Smoker 2nd Hand Smoke Exposure: Yes Have you traveled recently?: No Alcohol Use?: No Pt feels they are or have been: No Tobacco type used: Cigarettes Immunizations Up To Date Tetanus Booster (TDap): Less than 5yrs Date of Pneumonia Vaccine: Feb 21, 2019 Date of Influenza Vaccine: Feb 11, 2020 Past Medical History PMH As described under Assessment. Family Medical History Family Medical History: She reports her son has CAD with placement of 2 stents in the past. She reports "all the women in my family have had strokes". Family History: Arthritis 19 FATHER 19 MOTHER Cardiovascular disease 19 MOTHER Completed stroke 19 MOTHER maternal grandmother Congenital heart disease 19 MOTHER Diabetes mellitus 19 MOTHER maternal grandmother Hypercholesterolemia 19 MOTHER maternal grandmother Hypertension 19 MOTHER maternal grandmother Myocardial infarction maternal grandmother Tuberculosis paternal great grandfather Allergies and Home Medications Allergies Coded Allergies: No Known Drug Allergies (Verified , 10/21/08) Home Medications Apixaban 2.5 Mg Tablet, 2.5 MG PO BID, (Reported) Aspirin 81 Mg Tablet.dr, 81 MG PO DAILY Prescribed by: SLIME DEL REAL on 01/27/20 1128 Atorvastatin Calcium 20 Mg Tablet, 20 MG PO HS, (Reported) Cefdinir 300 Mg Capsule, 300 MG PO BID Prescribed by: SIMONE CELESTIN on 03/13/20 1213 Clopidogrel Bisulfate 75 Mg Tablet, 75 MG PO DAILY, (Reported) Gabapentin 100 Mg Capsule, 100 MG PO HS, (Reported) Gabapentin 100 Mg Capsule, 200 MG PO DAILY, (Reported) TAKES 2 (100MG) TABLETS Hydrocodone/Acetaminophen 1 Each Tablet, 1 EA PO TID PRN for PAIN-MODERATE (5- 7), (Reported) Hydroxychloroquine Sulfate 200 Mg Tablet, 400 MG PO DAILY, (Reported) TAKES 2 (200MG) TABS Isosorbide Mononitrate 30 Mg Tab.er.24h, 30 MG PO DAILY, (Reported) Metoprolol Succinate 100 Mg Tab.er.24h, 100 MG PO DAILY, (Reported) Nitroglycerin 0.3 Mg Tab.subl, 0.3 MG SL PRN PRN for CHEST PAIN (ANGINA), (Reported) Prednisone 10 Mg Tab, 10 MG PO DAILY, (Reported) Vilazodone Hydrochloride 20 Mg Tablet, 20 MG PO DAILY, (Reported) Patient Home Medication List Home Medication List Reviewed: Yes Physical Exam-Cardiology Physical Exam Vital Signs/I&O 07/10/20 07/11/20 07/11/20 07/11/20 23:49 00:50 03:32 04:32 Temp 36.0 Pulse 50 67 61 Resp 18 16 16 B/P (MAP) 243/104 (150) 157/71 (150) 186/95 (125) Pulse Ox 100 100 97 100 O2 Delivery Room Air Nasal Cannula Room Air Room Air O2 Flow Rate 2.00 07/11/20 07/11/20 07/11/20 07/11/20 04:38 05:00 05:15 05:30 Pulse 63 65 69 B/P (MAP) 172/80 (118) 181/79 (113) 183/87 (108) Pulse Ox 100 O2 Delivery Room Air Room Air Room Air Room Air 07/11/20 07/11/20 07/11/20 07/11/20 05:45 06:00 06:15 06:30 Pulse 61 62 63 70 B/P (MAP) 182/79 (121) 188/76 (127) 191/96 (125) 191/90 (98) O2 Delivery Room Air Room Air Room Air Room Air 07/11/20 07/11/20 07/11/20 07/11/20 06:45 07:06 08:00 08:21 Temp 36.7 Pulse 57 59 70 Resp 17 B/P (MAP) 125/111 (117) 145/68 (93) Pulse Ox 99 99 O2 Delivery Room Air Room Air Room Air O2 Flow Rate 2.00 Capillary Refill : Less Than 3 Seconds Constitutional: AAO x 3, well-developed, well-nourished HEENT: PERRL, hearing is well preserved, oral hygience is good Neck: carotid bruit, carotid pulses are 2 + bilaterally Respiratory: No accessory muscle use, No respiratory distress; chest expansion is symmetric, chest is bilaterally symmetric, lungs clear to auscultation Cardiovascular: regular rate-rhythm; No JVD; S1 and S2 Gastrointestinal: tender, soft; No guarding; audible bowel sounds Extremities: no lower extremity edema bilateral Neurologic/Psychiatric: grossly intact (moves all extremities) Skin: No rash on exposed areas, No ulcerations on exposed areas Data Review Labs Laboratory Tests 07/11/20 05:15: Triglycerides Level 121, Cholesterol Level 119, LDL Cholesterol Direct 63, VLDL Cholesterol 24, HDL Cholesterol 41 07/11/20 05:45: Prothrombin Time 14.1, INR Comment 1.1, Activated Partial Thromboplast Time 29 Laboratory Tests 07/10/20 00:15 A/P-Cardiology Assessment/Admission Diagnosis Chest pain of undetermined etiology, no evidence of ac [place] Nausea/abdominal tenderness of undetermined etiology - Medical services managing CAD - Card cath of 10/19/19: 90% mid vessel stenosis of the mid to distal left circumflex artery and 90% stenosis of the posterolateral system of the right coronary. The rest of the coronary arteries exhibit diffuse moderate disease and heavy coronary calcification. S/P successful stenting of the mid to distal left circumflex with Resolute 2.25 x 14 mm stent. 90% stenosis of the distal posterior lateral of the RCA where the vessel is of relatively small caliber. CKD 4. Appears stable after cath of 10/19/19 Recent unintentional weight loss of undetermined etiology, managed by her pcp Hypertension CVA with L homonymous hemianopsia - small to moderate-sized area of acute/subacute infarct involving the right occipital lobe. There is no evidence of intra-cranial hemorrhage, brain herniation, or midline shift on CT of the head on 07-15-18. Management of CVA is by her pcp Carotid artery disease - carotid u/s of 07-15-18, there is mod bilat carotid arterial plaque, worse (50-70% stenosis) on the right Ischemic cardiomyopathy. Echo of May 05, 2019: LVEF 50-55%, mild MR. RVSP 20 mmHg Intolerant to warfarin due to wide variations in INR. Currently on apixaban H/O cervical cancer for which she has undergone chemo (last tx 12 years ago) H/O sleep apnea, non-compliant with CPAP tx HLD - statin tx followed by her PCP H/O sinus bradycardia and V-tach during ED visit in November 2017 - transferred to [facility] at that time Chronic diarrhea Reports chronic lymphedema of the right leg Bilat foot paresthesias due to peripheral neuropathy Depression H/o lupus and gout (details unknown) followed and treated by pcp Family h/o CAD (son has had coronary stenting; mother has had CVA) Discussion and Recomendations Chest pain of undetermined etiology - no evidence of ACS thus far. Advise MPI to eval perfusion Continue Plavix d/t recent stenting in September 2019 Management of nausea/abdominal discomfort and increasing HH is with Medical services Echocardiogram to eval structure and function Monitor lab closely Continue home antihypertensives Further recs will be based on her hospital course We would like to thank Medical services for this consult DIMITRI WHITTEN MD FACP FAC CCDS Jul 11, 2020 10:38
[2020-07-11 10:45] LABS: BASOPHILS % (AUTO) 0 % (0-10); EOSINOPHILS # (AUTO) 0.1 10^3/uL (0.0-0.3); EOSINOPHILS % (AUTO) 1 % (0-10); HEMATOCRIT 38 % (35-52); HEMOGLOBIN 11.2 g/dL (11.5-16.0); LYMPHOCYTES # (AUTO) 2.4 10^3/uL (1.0-4.0); LYMPHOCYTES % (AUTO) 20 % (12-44); MEAN CORPUSCULAR HEMOGLOBIN 29 pg (25-34); MEAN CORPUSCULAR HGB CONC 29 g/dL (32-36); MEAN CORPUSCULAR VOLUME 99 fL (80-99); MEAN PLATELET VOLUME 12.6 fL (9.0-12.2); MONOCYTES # (AUTO) 0.7 10^3/uL (0.0-1.0); MONOCYTES % (AUTO) 6 % (0-12); NEUTROPHILS % (AUTO) 73 % (42-75); PLATELET COUNT 209 10^3/uL (130-400); WHITE BLOOD COUNT 12.4 10^3/uL (4.3-11.0)
[2020-07-11 10:47] LABS: ALBUMIN 3.5 GM/DL (3.2-4.5)
[2020-07-11 10:48] LABS: POTASSIUM 3.8 MMOL/L (3.6-5.0)
[2020-07-11 10:49] LABS: CALCIUM 8.4 MG/DL (8.5-10.1)
[2020-07-11 10:50] LABS: TOTAL PROTEIN 5.9 GM/DL (6.4-8.2)
[2020-07-11 10:52] LABS: BILIRUBIN,TOTAL 0.3 MG/DL (0.1-1.0)
[2020-07-11 10:54] LABS: CREATININE SERUM 1.56 MG/DL (0.60-1.30)
[2020-07-11] MEDS ORDERED: CHOL100045 PO (11:20)
[2020-07-11] MEDS ORDERED: ISOS60TA63 PO (11:20)
[2020-07-11] MEDS ORDERED: MULT-1136 PO (11:20)
[2020-07-11] MEDS ORDERED: NITR0.4T42 PO (11:20)
[2020-07-11] MEDS: CATHETER FLUSH 10 ML SYR IV PRN ×2 (12:02→13:19)
--- NOTE | 2020-07-11 12:04 | History & Physical-Hospitalist ---
MIGUEL ANGEL COX MED STUDENT 07/11/20 1204: History of Present Illness HPI/Chief Complaint CC: Chest pain HPI: Ms. Taveras is a 75yoWF clinic pt of [facility] with history of gout, lupus, HTN, HLD, peripheral neuropathy, cervical and vulvar cancer, CVA, ASVD, CAD post stent-placement and NSTEMI who presented to [facility] ED via EMS last night after 2 hours of chest pain radiating into left jaw and epigastric pain associated with nausea and dry heaves. She took 2 nitro at home and received ASA upon arrival. She was hypertensive (243/104) and given hydralazine as well as Zofran and scopolamine patch for nausea. Troponin, CKMB, EKG, amylase and lipase all unremarkable. BNP elevated at 510. She also had CXR and CT chest/abdomen/pelvis which were both negative as well. She was admitted to Cardiac Stepdown for close monitoring. Today she still complains of intense nausea but chest and abdominal pain have subsided. Cardiology was consulted and does not see evidence of ACS thus far but will perform echo and stress test today. She is stable and will remain in cardiac stepdown pending results from cardiology workup today. Source: patient, old records Exam Limitations: no limitations Date Seen 07/11/20 Time Seen by a Provider: 08:15 Attending Physician Slime Mosquera DO [facility] Referring Physician Date of Admission Jul 11, 2020 at 02:50 Home Medications & Allergies Home Medications Reviewed patient Home Medication Reconciliation performed by pharmacy medication reconciliations automotive glass technician and/or nursing. Patients Allergies have been reviewed. Allergies Allergies Coded Allergies No Known Drug Allergies (Verified10/21/08) Patient Social History Tobacco Use?: Yes Tobacco type used: Cigarettes Smoking Status: Current Everyday Smoker Use of E-Cig and/or Vaping dev: No Substance use?: No Alcohol Use?: No Pt stated abuse/neglect: No Immunizations Up To Date Influenza Vaccine Up-to-Date: Yes; Up-to-Date First/Initial COVID19 Vaccinat: april Second COVID19 Vaccination Rod: may Tetanus Booster (TDap): Less Than 5 Years Hepatitis A: Yes Hepatitis B: No TB Skin Test: Negative Date of Pneumonia Vaccine: Feb 21, 2019 Current Status status: No Do you have an Advance Directi: No Communicates: Verbally Primary Language: Greenlandic Implanted or Applied Medical D: None Past Medical History PMHx: 1. Gout 2. Hx of stroke 07/13/2018 3. 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 HTN 5. Hx of vulvar ca 6. Hx of cervical ca 7. Lymphedema of R leg 8. Lupus PSHx: 1. Cholecystectomy 2. Hysterectomy 3. Modified radical vulvectomy 4. Plate/pins R ankle 5. Bladder surgery d/t incontinence Family Medical History Family Hx: PAST SURGICAL HISTORY: -CARDIAC CATHS-STENT X 1 TO CIRCUMFLEX 09/2019 -MODIFIED RADICAL VULVECTOMY 1991 -HYSTERECTOMY/BILATERAL SALPINGO-OOPHORECTOMY -CHOLECYSTECTOMY -RIGHT ANKLE FX/ORIF -VENTRAL HERNIA REPAIR -DENTAL EXTRACTIONS -TONSILLECTOMY/ADENOIDECTOMY ADDITIONAL PAST MEDICAL HISTORY: -NSTEMI -HAS BEEN REFERRED TO CARDIOVASCULAR SURGEON FOR BYPASS, BUT OPTED FOR CONSERVATIVE MANAGEMENT -DIFFUSE ASVD -PERIPHERAL ARTERY DISEASE WITH ISCHEMIC FOOT ULCER IN PAST -RIGHT RENAL ARTERY THROMBUS--NO SURGICAL TREATMENT -BRADYCARDIA--VENTRICULAR TACHYCARDIA -RIGHT OCCIPITAL CVA WITH LEFT EYE HOMONYMOUS HEMIANOPSIA Review of Systems Constitutional: No chills, No diaphoresis, No dizziness; weakness EENTM: No blurred vision, No hoarseness, No throat pain Respiratory: No cough, No hemoptysis, No short of breath Cardiovascular: No chest pain, No palpitations, No syncope Gastrointestinal: No abdominal pain, No constipation, No hematemesis; nausea (severe) Genitourinary: No dysuria, No frequency : No Musculoskeletal: gout; No joint swelling Skin: No pruritus, No rash Psychiatric/Neurological: Anxiety, Depressed; Denies Numbness, Denies Paresthesia Physical Exam Physical Exam Vital Signs Vital Signs - First Documented 07/10/20 07/11/20 07/11/20 23:49 00:50 04:32 Temp 36.0 Pulse 50 Resp 18 B/P (MAP) 243/104 (150) Pulse Ox 100 O2 Delivery Room Air O2 Flow Rate 2.00 Capillary Refill : Less Than 3 Seconds Height, Weight, BMI Height: 5'0.00" Weight: 161lbs. 0oz. 73.519164dl; 24.92 BMI Method:Stated General Appearance: No Apparent Distress, WD/WN, Chronically ill HEENT: PERRL/EOMI, Moist Mucous Membranes Neck: Full Range of Motion, Normal Inspection, Non Tender Respiratory: Chest Non Tender, Lungs Clear, Normal Breath Sounds, No Accessory Muscle Use, No Respiratory Distress Cardiovascular: Regular Rate, Rhythm, No Edema, No JVD, Normal Peripheral Pulses Gastrointestinal: Normal Bowel Sounds, Non Tender, Soft Extremity: Normal Capillary Refill, Non Tender, No Calf Tenderness, No Pedal Edema Neurologic/Psychiatric: Alert, Oriented x3, Depressed Affect Skin: Warm/Dry, Pallor Lymphatic: No Adenopathy Results Results/Procedures Labs Laboratory Tests 07/10/20 00:15 07/11/20 05:45 Patient resulted labs reviewed. Imaging: Reviewed Imaging Report Assessment/Plan Admission Diagnosis Chest pain Admission Status: Inpatient Order (span 2 midnights) Reason for Inpatient Admission: Chest pain Elevated BNP Hx diffuse ASVD and CAD Assessment and Plan Assessment: Chest pain Epigastric pain Nausea Elevated BNP CKD HTN HLD CAD with stent Diffuse ASVD Hx of renal artery thrombus Hx of cervical and vulvar cancer Lupus Gout Depression Hx of CVA Hx NSTEMI Hiatal hernia Peripheral neuropathy Plan: Monitor closely cardiac stepdown BP and nausea control Echo and stress test today Diagnosis/Problems Diagnosis/Problems (1) Elevated troponin Status: Acute (2) CAD (coronary artery disease) Status: Chronic (3) High blood pressure Status: Chronic (4) Acute headache Status: Acute (5) Hiatal hernia Status: Chronic (6) Epigastric pain Status: Acute (7) Chest pain Status: Acute (8) Chronic renal insufficiency Status: Chronic (9) Hx of non-ST elevation myocardial infarction (NSTEMI) Status: Chronic (10) Hyperlipidemia Status: Chronic (11) Thrombosis, renal vein Status: Chronic (12) Hypertension Status: Chronic (13) Lupus (systemic lupus erythematosus) Status: Chronic (14) Acute gouty arthritis Status: Chronic SLIME MOSQUERA DO 07/12/20 0623: History of Present Illness HPI/Chief Complaint CC: Chest pain with nausea and vomiting HPI: This is a 75yoWF known to me from multiple hospital stays with a past med ical history of CAD and AF with hiatal hernia who presented to the ER with chest pain. Nitroglycerin did help the pain. CXR was negative, CT abdomen chest pelvis was negative. BNP was elevated at 510. BP remains hypertensive and kidney function remains at 1.69. Pt did have an echocardiogram completed and currently she is doing much better, she is just tired from being up all night. Source: patient Patient Social History Marrital Status: single Employed/Student: unemployed Smoking Status: Former Smoker Past Medical History AF CAD PVD HTN CRI Review of Systems Constitutional: see HPI, weakness Physical Exam Physical Exam General Appearance: No Apparent Distress, Chronically ill Respiratory: Lungs Clear Cardiovascular: Regular Rate, Rhythm Neurologic/Psychiatric: Alert Assessment/Plan Admission Diagnosis Cardiology consultation Monitor closely Home meds Admission Status: Observation Supervisory-Addendum Brief Verification & Attestation Participated in pt care: history, MDM, physical Personally performed: exam, history, MDM, supervision of care Care discussed with: Medical Student Procedures: n/a Results interpretation: Verified all documentation Verification and Attestation of Medical Student E/M Service A medical student performed and documented this service in my presence. I reviewed and verified all information documented by the medical student and made modifications to such information, when appropriate. I personally performed the physical exam and medical decision making. Slime Mosquera, Jul 12, 2020,06:22 MIGUEL ANGEL COX MED STUDENT Jul 11, 2020 12:04 SLIME MOSQUERA DO Jul 12, 2020 06:23
--- NOTE | 2020-07-11 17:07 | STRESS TEST ---
DATE OF SERVICE: 07/11/2020 RESTING AND POST REGADENOSON TECHNETIUM-99M TETROFOSMIN SPECT CT IMAGING ORDERING PHYSICIAN: Sandy Villalobos APRN PRIMARY PHYSICIAN: Dr. Mosquera. CLINICAL DIAGNOSES: Chest discomfort, coronary artery disease. Baseline images were carried out after injection of 10.9 mCi of technetium-99m Tetrofosmin. This was followed by 0.4 mg regadenoson and 29.8 mCi of technetium-99m Tetrofosmin for stress imaging. The electrocardiogram showed sinus rhythm at baseline. It did not change significantly with the regadenoson infusion. Review of images at rest and following stress does not indicate significant perfusion defects consistent with myocardial ischemia or infarction. Gated images show well preserved global left ventricular systolic function without any distinct regional wall motion abnormality. Left ventricular ejection fraction is calculated to be 54%. Left ventricular end diastolic volume is 78 mL. TID is absent (1.05). CONCLUSIONS: 1. No evidence of any significant myocardial ischemia or infarction on this study. 2. Normal regional wall motion. 3. Normal global left ventricular systolic function with a calculated ejection fraction of 54%. Job ID: [id number] DocumentID: [id number] Dictated Date: 07/11/2020 15:24:56 Internal Control Manager Date: 07/11/2020 17:06:39 Dictated By: DIMITRI WHITTEN MD, MA, FACP, FACC,
[2020-07-11] MEDS ORDERED: amLODIPine 5 MG (NORVASC) TAB PO NR (20:30)
[2020-07-11] MEDS ORDERED: HYDROcodone/APAP 5 MG/325 MG (LORTAB) TAB PO PRN (20:30)
[2020-07-11] MEDS: APIXABAN 2.5 MG (ELIQUIS) TABLET PO SCH (20:47)
[2020-07-12] VITALS: BP 178/73
[2020-07-12] MEDS: NS IV 1000 ML 1,000 ML IV SCH ×2 (00:16→06:20)
[2020-07-12 04:00] VITALS: BP 166/66
[2020-07-12 06:39] LABS: BASOPHILS % (AUTO) 0 % (0-10); EOSINOPHILS # (AUTO) 0.1 10^3/uL (0.0-0.3); EOSINOPHILS % (AUTO) 0 % (0-10); HEMATOCRIT 35 % (35-52); HEMOGLOBIN 10.6 g/dL (11.5-16.0); LYMPHOCYTES # (AUTO) 1.6 10^3/uL (1.0-4.0); LYMPHOCYTES % (AUTO) 11 % (12-44); MEAN CORPUSCULAR HEMOGLOBIN 29 pg (25-34); MEAN CORPUSCULAR HGB CONC 31 g/dL (32-36); MEAN CORPUSCULAR VOLUME 96 fL (80-99); MEAN PLATELET VOLUME 12.5 fL (9.0-12.2); MONOCYTES # (AUTO) 1.1 10^3/uL (0.0-1.0); MONOCYTES % (AUTO) 8 % (0-12); NEUTROPHILS # (AUTO) 10.9 10^3/uL (1.8-7.8); NEUTROPHILS % (AUTO) 80 % (42-75); PLATELET COUNT 187 10^3/uL (130-400); WHITE BLOOD COUNT 13.7 10^3/uL (4.3-11.0)
[2020-07-12] MEDS ORDERED: predniSONE 10 MG TAB PO SCH (07:00)
[2020-07-12] MEDS ORDERED: MULTIVIT W/MINERALS TAB (THERAGRAN M) PO SCH (07:00)
[2020-07-12 07:05] LABS: ALBUMIN 3.2 GM/DL (3.2-4.5); POTASSIUM 3.8 MMOL/L (3.6-5.0)
[2020-07-12 07:06] LABS: CALCIUM 8.1 MG/DL (8.5-10.1)
[2020-07-12 07:07] LABS: TOTAL PROTEIN 5.5 GM/DL (6.4-8.2)
[2020-07-12 07:09] LABS: BILIRUBIN,TOTAL 0.7 MG/DL (0.1-1.0)
[2020-07-12 07:11] LABS: CREATININE SERUM 1.45 MG/DL (0.60-1.30)
[2020-07-12 07:20] VITALS: BP 163/72
[2020-07-12] MEDS: ASPIRIN E.C. 81 MG (ECOTRIN) TAB PO SCH (07:47)
[2020-07-12] MEDS: CLOPIDOGREL 75 MG (PLAVIX) TABLET PO SCH (07:48)
[2020-07-12] MEDS: PANTOPRAZOLE 40 MG (PROTONIX) VIAL IV SCH (07:48)
[2020-07-12] MEDS: APIXABAN 2.5 MG (ELIQUIS) TABLET PO SCH (07:48)
[2020-07-12] MEDS ORDERED: NON-FORMULARY MEDICATION 1 EA EA (Vilazodone Hydrochloride (Viibryd) 20 MG) PO SCH (09:00)
[2020-07-12] MEDS ORDERED: meTOprolol SUCCINATE 100 MG (TOPROL XL) TAB PO SCH (09:00)
[2020-07-12] MEDS ORDERED: ISOSORBIDE MONONITRATE 60 MG (IMDUR) TAB PO SCH (09:00)
[2020-07-12] MEDS ORDERED: VITAMIN D3 25 MCG (1,000 UNITS) TABLET PO SCH (09:00)
--- NOTE | 2020-07-12 09:23 | Progress Note - Cardiology ---
Cardiology SOAP Progress Note Objective: I&O/Vital Signs 07/12/20 07/12/20 07/12/20 07/12/20 00:00 01:00 04:00 06:32 Temp 37.2 36.6 Pulse 70 56 75 81 Resp 22 14 B/P (MAP) 178/73 (108) 166/66 (99) Pulse Ox 99 97 O2 Delivery Room Air Room Air 07/12/20 07/12/20 07:20 09:04 Temp 37.0 Pulse 81 Resp 20 B/P (MAP) 163/72 (102) Pulse Ox 98 97 O2 Delivery Room Air Room Air 07/12/20 00:00 Intake Total 220 ml Balance 220 ml Weight (Pounds): 161 Weight (Ounces): 0 Weight (Calculated Kilograms): 73.761156 Constitutional: AAO x 3, well-developed, well-nourished Respiratory: No accessory muscle use, No respiratory distress; chest expansion is symmetric, chest is bilaterally symmetric, lungs clear to auscultation Cardiovascular: regular rate-rhythm; No JVD; S1 and S2 Gastrointestional: tender, soft; No guarding; audible bowel sounds Extremities: no lower extremity edema bilateral Neurologic/Psychiatric: grossly intact (moves all extremities) Skin: No rash on exposed areas, No ulcerations on exposed areas Results/Procedures: Labs Laboratory Tests 07/12/20 05:31: White Blood Count 13.7H, Red Blood Count 3.64L, Hemoglobin 10.6L, Hematocrit 35, Mean Corpuscular Volume 96, Mean Corpuscular Hemoglobin 29, Mean Corpuscular Hemoglobin Concent 31L, Red Cell Distribution Width 16.1H, Platelet Count 187, Mean Platelet Volume 12.5H, Immature Granulocyte % (Auto) 0, Neutrophils (%) (Auto) 80H, Lymphocytes (%) (Auto) 11L, Monocytes (%) (Auto) 8, Eosinophils (%) (Auto) 0, Basophils (%) (Auto) 0, Neutrophils # (Auto) 10.9H, Lymphocytes # (Auto) 1.6, Monocytes # (Auto) 1.1H, Eosinophils # (Auto) 0.1, Basophils # (Auto) 0.0, Immature Granulocyte # (Auto) 0.1, Sodium Level 142, Potassium Level 3.8, Chloride Level 115H, Carbon Dioxide Level 15L, Anion Gap 12, Blood Urea Nitrogen 16, Creatinine 1.45H, Estimat Glomerular Filtration Rate 35, BUN/Creatinine Ratio 11, Glucose Level 81, Calcium Level 8.1L, Corrected Calcium 8.7, Total Bilirubin 0.7, Aspartate Amino Transf (AST/SGOT) 14, Alanine Aminotransferase (ALT/SGPT) 6, Alkaline Phosphatase 63, Total Protein 5.5L, Albumin 3.2 Laboratory Tests 07/11/20 05:45 07/12/20 05:31 A/P: Assessment: Chest pain of undetermined etiology, no evidence of ac NV Nausea/abdominal tenderness of undetermined etiology - Medical services managing CAD - Card cath of 10/19/19: 90% mid vessel stenosis of the mid to distal left circumflex artery and 90% stenosis of the posterolateral system of the right coronary. The rest of the coronary arteries exhibit diffuse moderate disease and heavy coronary calcification. S/P successful stenting of the mid to distal left circumflex with Resolute 2.25 x 14 mm stent. 90% stenosis of the distal posterior lateral of the RCA where the vessel is of relatively small caliber. - No evidence of any significant myocardial ischemia or infarction on this study. Normal regional wall motion. Normal global left ventricular systolic function with a calculated ejection fraction of 54% per MPI of 07-11-20 CKD 4. Appears stable after cath of 10/19/19 Recent unintentional weight loss of undetermined etiology, managed by her pcp Hypertension CVA with L homonymous hemianopsia - small to moderate-sized area of acute/subacute infarct involving the right occipital lobe. There is no evidence of intra-cranial hemorrhage, brain herniation, or midline shift on CT of the head on 07-15-18. Management of CVA is by her pcp Carotid artery disease - carotid u/s of 07-15-18, there is mod bilat carotid a rterial plaque, worse (50-70% stenosis) on the right Ischemic cardiomyopathy - Echocardiogram of 07-11-20 showed LVEF 60-65%. Mild to mod MR. PASP 35-40 mmHg Intolerant to warfarin due to wide variations in INR. Currently on apixaban H/O cervical cancer for which she has undergone chemo (last tx 12 years ago) H/O sleep apnea, non-compliant with CPAP tx HLD - statin tx followed by her PCP H/O sinus bradycardia and V-tach during ED visit in November 2017 - transferred to [facility] at that time Chronic diarrhea Reports chronic lymphedema of the right leg Bilat foot paresthesias due to peripheral neuropathy Depression H/o lupus and gout (details unknown) followed and treated by pcp Family h/o CAD (son has had coronary stenting; mother has had CVA) Plan: BP is not well controlled Add amlodipine for BP control Monitor lab TATY ENGLE Jul 12, 2020 09:22
[2020-07-12] MEDS ORDERED: amLODIPine 5 MG (NORVASC) TAB PO ONE (09:30)
[2020-07-12] MEDS: ACETAMINOPHEN 325 MG TABLET PO PRN (10:20)
[2020-07-12 11:15] VITALS: BP 161/73
[2020-07-12] MEDS ORDERED: CLOP75TA28 PO (11:16)
[2020-07-12] MEDS ORDERED: AMLO-250 PO (11:16)
[2020-07-12] MEDS ORDERED: ASPI-1238 PO (11:16)
[2020-07-12] MEDS ORDERED: PANT40TA2 PO (11:16)
--- NOTE | 2020-07-12 11:17 | D/C HH Face to Face Order ---
D/C Face to Face Orders Reconcile Patient Problems Problems Reviewed?: Yes Instructions for Patient Via [facility], Patient Instructions/FollowUp: [facility] 1 week Physician to follow Patient: [facility] Discharge Diet for Home: Cardiac Diet Patient Problems: Debility Patient Data-Allergies,Ht & Wt Patient Allergies: Coded Allergies: No Known Drug Allergies (Verified , 10/21/08) Height (Feet): 5 Height (Inches): 0.00 Weight (Pounds): 161 Weight (Ounces): 0 Home Health Need/Face to Face Date of Face to Face: Jul 12, 2020 Clinical Findings: Generalized weakness and fatigue, Muscle weakness, Unsteady gait I have seen Pt [id number]: Yes Discharged To: Home Diagnosis/Conditions: Debility Patient is Homebound due to: Muscle weakness Homebound Status Due to the above stated illness, injury or surgical procedure (medical condition or diagnosis) and associated clinical findings, the patient is homebound because of his/her inability to leave home except with aid of a supportive device and/or person AND leaving the home requires a considerable and taxing effort or is medically contraindicated. Pt req the following assistanc: Walker [facility] Health Nursing Orders Home Health Services Order: Nursing Services, Certified Genetic Counselor-Evaluate & Arleen t, Physical Therapy-Evaluate & Treat Home Health Infusion Therapy Line Start Date: Jul 10, 2020 Certify Stmt I certify that this patient is under my care and that I, a nurse practitioner or a physician; a diet assistant working with me, had a face to face encounter that - meets the physician face to face encounter requirements with this patient as dated. SERINA DEL REAL DO Jul 12, 2020 11:17
--- NOTE | 2020-07-12 11:56 | Physical Therapy Evaluation ---
PT Evaluation-General Medical Diagnosis Admission Date Jul 11, 2020 at 02:50 Medical Diagnosis: chest pain Onset Date: Jul 11, 2020 Therapy Diagnosis Therapy Diagnosis: impaired mobility, strength, endurance Height/Weight Height (Feet): 5 Height (Inches): 0.00 Weight (Pounds): 161 Weight (Ounces): 0 Precautions Precautions/Isolations: Fall Prevention, Standard Precautions Referral Physician: Slime Mosquera DO Reason for Referral: Evaluation/Treatment Medical History Pertinent Medical History: Arthritis, CAD, Heart Failure, HTN, Neuropathy Additional Medical History Past Medical History Surgeries: Yes (MODIFIED RADICAL VULVECTOMY 1991/CHOLECYSTECTOMY;CARDIAC CATHS- STENT X 1) Abdominal, Adenoidectomy, Cardiac, Coronary Stent, Gallbladder, Hysterectomy, Oo phorectomy, Orthopedic, Tonsillectomy Respiratory: Yes (REFUSES TO WEAR CPAP) Pneumonia, Sleep Apnea Currently Using CPAP: No Currently Using BIPAP: No Cardiac: Yes (HX AORTIC/RENAL ART THROMBUS;GANGRENE/TOES;V- TACH;BRADYCARDIA;ASVD) Coronary Artery Disease, Heart Attack, High Cholesterol, Hypertension, Irregular Heartbeat Neurological: Yes (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) Neuropathy, Stroke, TIA 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 Disorders: Yes (HX OF CERVICAL AND VULVAR CA--MODIFIED RADICAL VUL VECTOMY 1991;HYST/BSO) 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 Disorders: Denies 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: Hysterectomy, Menopausal Sexually Transmitted Disease: No HIV/AIDS: No Genitourinary: Yes (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) Bladder Infection, Renal Failure Gastrointestinal: Yes (S/P CHOLECYSTECTOMY) Gastroesophageal Reflux, Chronic Diarrhea, Hiatal Hernia, Gall Bladder Disease Musculoskeletal: Yes (GANGRENE OF TOES-TX WITH ANTIBIOTICS; ISCHEMIC FOOT ULCER) Arthritis, Fibromyalgia Endocrine: Yes Lupus HEENT: No Loss of Vision: Left Hearing Impairment: Denies Cancer: Yes Cervical, Vaginal Did You Recieve Any Treatments: Yes What Type of Treatment Did You: Chemotherapy, Radiation, Surgical Intervention CERVICAL AND VULVAR CANCER--S/P HYSTERECTOMY/BSO AND MODIFIED RADICAL VULVECTOMY Psychosocial: Yes Anxiety Integumentary: Yes (History of "gangrene" of the toes.; ISCHEMIC FOOT ULCER) Reviewed History: Yes Social History Home: Single Level Current Living Status: Children Entry Into Home: Stairs With Railing PT Steps Into Home: 3 Patient lives with her son Prior Prior Level of Function SCALE: Activities may be completed with or without assistive devices. 4-Difgxqjrqc-aaemuve completes the activity by him/herself with no assistance from a helper. 5-Set-up or Clean-up Assistance-helper sets up or cleans up; patient completes activity. Slater assists only prior to or following the activity. 4-Supervision or Touching Assistance-helper provides verbal cues and/or touching/steadying and/or contact guard assistance as patient completes activity. Assistance may be provided throughout the activity or intermittently. 3-Partial/Moderate Assistance-helper does LESS THAN HALF the effort. Slater lifts, holds or supports trunk or limbs, but provides less than half the effort. 2-Substantial/Maximal Assistance-helper does MORE THAN HALF the effort. Slater lifts or holds trunk or limbs and provides more than half the effort. 8-Ksksvbrqz-wkxyed does ALL the effort. Patient does none of the effort to complete the activity. Or, the assistance of 2 or more helpers is required for the patient to complete the activity. If activity was not attempted, code reason: 7-Patient Refused. 9-Not Applicable-not attempted and the patient did not perform the activity before the current illness, exacerbation or injury. 10-Not Attempted due to Environmental Limitations-(lack of equipment, weather restraints, etc.). 88-Not Attempted due to Medical Conditions or Safety Concerns. Bed Mobility: 6 Transfers (B,C,W/C): 6 Gait: 6 Stairs: 6 Indoor Mobility (Ambulation): Independent Stairs: Independent Prior Devices Use: Other-see list below (single point cane) PT Evaluation-Current Subjective Patient in bed pre tx, agrees to PT, has slight pain in her head. Pt/Family Goals to be independent at home Objective Patient Orientation: Person, Place, Situation Attachments: IV ROM/Strength ROM Lower Extremities WNL Strength Lower Extremities patient has some weakness on her left side due to previous CVA Neuromuscular (Tone, Coordination, Reflexes) Patient has impaired left side peripheral vision but had no difficulty with tracking Sensory Vision: Hearing: Functional Sensation Right Lower Extremit: Impaired Sensation Left Lower Extremity: Impaired Transfers Roll Left to Right (QC): 6 Sit to Lying (QC): 3 Lying to Sitting/Side of Bed(Q: 3 Sit to Stand (QC): 4 Chair/Aix-yu-Ktvpc Xfer(QC): 4 CGA for sit to stand and transfers Gait Does the Patient Walk?: Yes Mode of Locomotion: Walk Anticipated Mode of Locomotion: Walk Walk 10 feet (QC): 4 Distance: 20' Gait Assistive Device: FWW Comments/Gait Description Patient asked to turn around after only ambulating about 10', she was not SOB or in any distress. Balance Sitting Static: Good Sitting Dynamic: Good Standing Static: Good Standing Dynamic: Fair Assessment/Needs Patient has impaired mobility, strength, endurance. She needs some assist to get into and out of bed and needs somebody there with her during transfers and ambulation. Patient in bed post tx with nurse call, phone, tray, all needs met. Rehab Potential: Fair PT Senior Care Goals [place] Hand Goals PT [place] Hand Goals Time Frame: Jul 19, 2020 Roll Left & Right (QC): 6 Sit to Lying (QC): 6 Lying-Sitting on Side/Bed(QC): 6 Sit to Stand (QC): 5 Chair/Pyw-et-Mgdid Xfer(QC): 5 Does the Patient Walk: Yes Walk 10 feet (QC): 5 Walk 50ft with 2 Turns (QC): 5 PT Plan Problem List Problem List: Activity Tolerance, Functional Strength, Safety, Balance, Gait, Transfer, Bed Mobility, ROM Treatment/Plan Treatment Plan: Continue Plan of Care Treatment Plan: Bed Mobility, Education, Functional Activity Ghada, Functional Strength, Gait, Safety, Therapeutic Exercise, Transfers Treatment Duration: Jul 19, 2020 Frequency: 6 times per week Estimated Hrs Per Day: .25 hour per day Patient and/or Family Agrees t: Yes Safety Risks/Education Patient Education: Gait Training, Transfer Techniques, Correct Positioning, Safety Issues Teaching Recipient: Patient Teaching Methods: Demonstration, Discussion Response to Teaching: Reinforcement Needed Discharge Recommendations Plan Patient will perform bed mobility and transfer training, balance and endurance training, functional strengthening, stair training, gait training, and education, to improve functional mobility and independence at home. Therapy Discharge Recommendati: Scheduled Assistance, Home & Family, Post Acute PT Time/GCodes Time In: 1115 Time Out: 1127 Total Billed Treatment Time: 12 Total Billed Treatment 1 visit MANUEL 12ROSALES BERG PT Jul 12, 2020 11:56
--- NOTE | 2020-07-12 12:16 | Progress Note ---
MIGUEL ANGEL COX MED STUDENT 07/12/20 1216: Progress Note CC: Chest pain HPI: Ms. Taveras is a 75yoWF clinic pt of [facility] with history of gout, lupus, HTN, HLD, peripheral neuropathy, cervical and vulvar cancer, CVA, ASVD, CAD post stent-placement and NSTEMI who presented to [facility] ED via EMS after 2 hours of chest pain radiating into left jaw and epigastric pain associated with nausea and dry heaves. She took 2 nitro at home and received ASA upon arrival. She was hypertensive (243/104) and given hydralazine as well as Zofran and scopolamine patch for nausea. Troponin, CKMB, EKG, amylase and lipase all unremarkable. BNP elevated at 510. She also had CXR and CT chest/abdomen/pelvis which were both negative as well. She was admitted to Cardiac Stepdown for IVF, anti-nausea medication and close monitoring. Day 2 of her stay she continued to have intense nausea and severe fatigue. Cardiology was consulted and did not see evidence of ACS. Echo and stress test were performed and both were unremarkable. Today she is stable without nausea or chest pain and well-rested. Cardiology, medicine, PT as well as patient all agree that she is recovered enough to return home. She will be discharged with instructions to follow-up with her pcp. Additionally, home health will check in with patient as well as PT to improve bed mobility, transfer training, and overall strength. She should return to ED for any returning chest pain or new and concerning symptoms that appear. SLIME DEL REAL DO 07/13/20 0542: Supervisory-Addendum Brief Verification & Attestation Participated in pt care: history, MDM, physical Personally performed: exam, history, MDM, supervision of care Care discussed with: Medical Student Procedures: n/a Results interpretation: Verified all documentation Verification and Attestation of Medical Student E/M Service A medical student performed and documented this service in my presence. I reviewed and verified all information documented by the medical student and made modifications to such information, when appropriate. I personally performed the physical exam and medical decision making. Slime Del Real, Jul 13, 2020,05:42 MIGUEL ANGEL COX MED STUDENT Jul 12, 2020 12:16 SLIME DEL REAL DO Jul 13, 2020 05:42
--- NOTE | 2020-07-12 15:57 | Progress Note - Cardiology ---
Cardiology SOAP Progress Note Subjective: She feels much better today Abd discomfort and n/v/d have resolved No cp or palp or syncope No shortness of breath at rest Objective: I&O/Vital Signs 07/12/20 07/12/20 07/12/20 07/12/20 04:00 06:32 07:20 09:04 Temp 36.6 37.0 Pulse 75 81 81 Resp 14 20 B/P (MAP) 166/66 (99) 163/72 (102) Pulse Ox 97 98 97 O2 Delivery Room Air Room Air Room Air 07/12/20 11:15 Temp 37.4 Pulse 60 Resp 12 B/P (MAP) 161/73 (102) Pulse Ox 96 O2 Delivery Room Air 07/12/20 00:00 Intake Total 220 ml Balance 220 ml Weight (Pounds): 161 Weight (Ounces): 0 Weight (Calculated Kilograms): 73.241908 Constitutional: AAO x 3, well-developed, well-nourished Respiratory: No accessory muscle use, No respiratory distress; chest expansion is symmetric, chest is bilaterally symmetric, lungs clear to auscultation Cardiovascular: regular rate-rhythm; No JVD; S1 and S2 Gastrointestional: tender, soft; No guarding; audible bowel sounds Extremities: no lower extremity edema bilateral Neurologic/Psychiatric: grossly intact (moves all extremities) Skin: No rash on exposed areas, No ulcerations on exposed areas Results/Procedures: Labs Laboratory Tests 07/12/20 05:31: White Blood Count 13.7H, Red Blood Count 3.64L, Hemoglobin 10.6L, Hematocrit 35, Mean Corpuscular Volume 96, Mean Corpuscular Hemoglobin 29, Mean Corpuscular Hemoglobin Concent 31L, Red Cell Distribution Width 16.1H, Platelet Count 187, Mean Platelet Volume 12.5H, Immature Granulocyte % (Auto) 0, Neutrophils (%) (Auto) 80H, Lymphocytes (%) (Auto) 11L, Monocytes (%) (Auto) 8, Eosinophils (%) (Auto) 0, Basophils (%) (Auto) 0, Neutrophils # (Auto) 10.9H, Lymphocytes # (Auto) 1.6, Monocytes # (Auto) 1.1H, Eosinophils # (Auto) 0.1, Basophils # (Auto) 0.0, Immature Granulocyte # (Auto) 0.1, Sodium Level 142, Potassium Level 3.8, Chloride Level 115H, Carbon Dioxide Level 15L, Anion Gap 12, Blood Urea Nitrogen 16, Creatinine 1.45H, Estimat Glomerular Filtration Rate 35, BUN/Creatinine Ratio 11, Glucose Level 81, Calcium Level 8.1L, Corrected Calcium 8.7, Total Bilirubin 0.7, Aspartate Amino Transf (AST/SGOT) 14, Alanine Aminotransferase (ALT/SGPT) 6, Alkaline Phosphatase 63, Total Protein 5.5L, Albumin 3.2 Laboratory Tests 07/11/20 05:45 07/12/20 05:31 A/P: Assessment: Chest pain of undetermined etiology, no evidence of ac VT Nausea/abdominal tenderness of undetermined etiology - Medical services managing CAD - Card cath of 10/19/19: 90% mid vessel stenosis of the mid to distal left circumflex artery and 90% stenosis of the posterolateral system of the right coronary. The rest of the coronary arteries exhibit diffuse moderate disease and heavy coronary calcification. S/P successful stenting of the mid to distal left circumflex with Resolute 2.25 x 14 mm stent. 90% stenosis of the distal posterior lateral of the RCA where the vessel is of relatively small caliber. - MPI of 07-11-20: No evidence of any significant myocardial ischemia or infarction on this study. Normal regional wall motion. Normal global left ventricular systolic function with a calculated ejection fraction of 54% CKD 4. Appears stable after cath of 10/19/19 Recent unintentional weight loss of undetermined etiology, managed by her pcp Hypertension CVA with L homonymous hemianopsia - small to moderate-sized area of acute/subacute infarct involving the right occipital lobe. There is no evidence of intra-cranial hemorrhage, brain herniation, or midline shift on CT of the head on 07-15-18. Management of CVA is by her pcp Carotid artery disease - carotid u/s of 07-15-18, there is mod bilat carotid arterial plaque, worse (50-70% stenosis) on the right Ischemic cardiomyopathy - Echocardiogram of 07-11-20 showed LVEF 60-65%. Mild to mod MR. PASP 35-40 mmHg Intolerant to warfarin due to wide variations in INR. Currently on apixaban H/O cervical cancer for which she has undergone chemo (last tx 12 years ago) H/O sleep apnea, non-compliant with CPAP tx HLD - statin tx followed by her PCP H/O sinus bradycardia and V-tach during ED visit in November 2017 - transferred to [facility] at that time Chronic diarrhea Reports chronic lymphedema of the right leg Bilat foot paresthesias due to peripheral neuropathy Depression H/o lupus and gout (details unknown) followed and treated by pcp Family h/o CAD (son has had coronary stenting; mother has had CVA) Plan: * I discussed her cardiac w/u with he (summarized above) * Focus of CV management is on risk factor mod. This was discussed * Outpt f/u advised DIMITRI WHITTEN MD FACP FACC CCDS Jul 12, 2020 15:57
[2020-07-13] MEDS ORDERED: amLODIPine 5 MG (NORVASC) TAB PO SCH (09:00)
[2020-07-13] MEDS ORDERED: SCOPOLAMINE 1.5 MG (TRANSDERM-SCOP) PATCH TOP SCH (21:00)
== END 2020-07-12 13:06 | disposition home health service (06) ==
LOC: EDUNIT# 23:20 → ER 23:22 → CSD 07-11 02:50
PROVIDERS: ADMIT Internal Medicine; ATTEND Internal Medicine
DX: I25.10 Atherosclerotic heart disease of native coronary artery without angina pectoris (principal); I10 Essential (primary) hypertension; E78.00 Pure hypercholesterolemia, unspecified; K21.9 Gastro-esophageal reflux disease without esophagitis; K44.9 Diaphragmatic hernia without obstruction or gangrene; M19.90 Unspecified osteoarthritis, unspecified site; F41.9 Anxiety disorder, unspecified; I21.4 Non-ST elevation (NSTEMI) myocardial infarction; N18.4 Chronic kidney disease, stage 4 (severe); I12.9 Hypertensive chronic kidney disease with stage 1 through stage 4 chronic kidney disease, or unspecified chronic kidney disease; F32.9 Major depressive disorder, single episode, unspecified; F17.210 Nicotine dependence, cigarettes, uncomplicated; Z79.82 Long term (current) use of aspirin; Z79.899 Other long term (current) drug therapy; Z86.73 Personal history of transient ischemic attack (TIA), and cerebral infarction without residual deficits; Z90.710 Acquired absence of both cervix and uterus; Z90.49 Acquired absence of other specified parts of digestive tract; Z95.5 Presence of coronary angioplasty implant and graft
CPT/HCPCS: 36415; 71045; 71250; 74176; 78452; 80053; 80061; 82150; 82550; 82553; 83690; 83735; 83874; 83880; 84484; 85025; 85610; 85730; 93005; 93017; 93041; 93306; 96361; 96374; 96375; 96376

== ENCOUNTER → 2020-08-08 | Outpatient (CLI) | payer MEDICARE, MEDICAID ==
[~2020-08-08] MED LIST changes: +CHOL100045 PO; +ISOS60TA63 PO; +NITR0.4T42 PO; +PANT40TA2 PO
--- NOTE | 2020-08-08 14:04 | Diagnostic Imaging Report ---
PROCEDURE: CT head without contrast. TECHNIQUE: Multiple contiguous axial images were obtained through the brain without the use of intravenous contrast. Auto Exposure Controls were utilized during the CT exam to meet ALARA standards for radiation dose reduction. INDICATION: Intractable headache There is some ischemic change in the right occipital lobe consistent with old infarct. There are no masses or hemorrhages. There are no extra-axial fluid collections. The ventricles are not dilated. Paranasal sinuses are clear. IMPRESSION: Old ischemic changes right posterior cerebral artery vascular territory. No acute abnormality seen in head. Dictated by: Dictated on workstation # [id number]
== END ==
LOC: RAD 13:15
PROVIDERS: ATTEND Nurse Practitioner Family
DX: I67.82 Cerebral ischemia (principal)
CPT/HCPCS: 70450

== ENCOUNTER → 2020-10-17 | Outpatient (CLI) | payer MEDICARE, MEDICAID ==
[~2020-10-17] MED LIST changes: -VANC1VIA IV; +VANC1VIA35 IV
--- NOTE | 2020-10-17 16:46 | Diagnostic Imaging Report ---
INDICATION: 75-year-old asymptomatic postmenopausal female. History of tobacco use. COMPARISON: 09/11/2017 FINDINGS: AP Spine L2-L4: [BMD (g/cm2): 0.983] [T-Score: -1.8] [Z-Score: 0.4] [BMD Previous: 1.316] [BMD % Change: -25.3] LT Hip Neck: [BMD (g/cm2): 0.526] [T-Score: -3.7] [Z-Score: -1.6] LT Hip Total: [BMD (g/cm2):0.443] [T-Score:-4.5] [Z-Score: -2.5] [BMD Previous: 0.927] [BMD % Change: -52.2] RT Hip Neck: [BMD (g/cm2):0.812] [T-Score:-1.6] [Z-Score:0.5] RT Hip Total: [BMD (g/cm2):0.708] [T-score:-2.4] [Z-Score:-0.4] [BMD Previous:0.925] [BMD % Change:-23.5] *Indicates significant change from prior examination based on 95% confidence level. World Health Organization criteria for BMD interpretation classify patients as Normal (T-score at or above -1.0), Osteopenic (T-score between -1.0 and -2.5) or Osteoporotic (T-score at or below -2.5). LIMITATIONS AND MODIFICATION: The left hip and spine have multiple areas of degenerative change and therefore regions of bone that are excluded by software. This can artificially decrease bone mineral density. FRACTURE RISK (FRAX SCORE): Not applicable as patient meets criteria for osteoporosis. IMPRESSION: 1. Osteoporosis. 2. No significant change in bone mineral density since prior examination. 3. See below National Osteoporosis Foundation guidelines on when to potentially initiate pharmacologic therapy. Based on the National Osteoporosis Foundation Guidelines, pharmacologic treatment should be initiated in any of the following, unless clinical conditions suggest otherwise: * Any patient with prior fragility fracture of the hip or vertebrae. A spine fracture indicates 5X risk for subsequent spine fracture and 2X risk for subsequent hip fracture. * Osteoporosis (T-score <-2.5). * Postmenopausal women and men age 50 and older with low bone mass/osteopenia (T-score between -1.0 and -2.5) by DXA and 10-year major osteoporotic fracture greater than 20% or a 10-year probability of hip fracture greater than 3%. These fracture risks are supplied above in the FRAX score, if applicable. * Clinician judgement and/or patient preferences may indicate treatment for people with 10-year fracture probabilities above or below these levels. Dictated by: Dictated on workstation # [id number]
--- NOTE | 2020-10-17 16:59 | Diagnostic Imaging Report ---
INDICATION: Routine screening. COMPARISON: 04/22/2012 and 11/19/2010. TECHNIQUE: 2D and 3D bilateral screening mammography was performed with CAD. FINDINGS: Scattered fibroglandular densities are identified bilaterally. Scattered benign calcifications are noted bilaterally. No mass or malignant-appearing microcalcifications are seen. The axillae are unremarkable. IMPRESSION: No mammographic features suspicious for malignancy are identified. ACR BI-RADS Category 2: Benign findings. Result letter will be mailed to the patient. Note: At least 10% of breast cancer is not imaged by mammography. Dictated by: Dictated on workstation # [id number]
== END ==
LOC: RAD 13:45
PROVIDERS: ATTEND Nurse Practitioner Family
DX: Z13.820 Encounter for screening for osteoporosis (principal); Z12.31 Encounter for screening mammogram for malignant neoplasm of breast; M81.0 Age-related osteoporosis without current pathological fracture; Z78.0 Asymptomatic menopausal state; Z87.891 Personal history of nicotine dependence
CPT/HCPCS: 77063; 77067; 77080

== ENCOUNTER 2020-12-29 14:39 | Emergency (ER) | payer MEDICARE, MEDICAID ==
[~2020-12-29] VITALS: Ht 152 cm; Wt 52.0 kg
[~2020-12-29 14:39] MED LIST changes: +CHOL10004 PO; -CHOL100045 PO
[2020-12-29] MEDS ORDERED: fentaNYL INJ 100 MCG/2 ML AMP IVP STA (14:48)
[2020-12-29 15:00] LABS: BASOPHILS % (AUTO) 0 % (0-10); EOSINOPHILS % (AUTO) 0 % (0-10); HEMATOCRIT 38 % (35-52); HEMOGLOBIN 11.9 g/dL (11.5-16.0); LYMPHOCYTES # (AUTO) 1.1 10^3/uL (1.0-4.0); LYMPHOCYTES % (AUTO) 7 % (12-44); MEAN CORPUSCULAR HEMOGLOBIN 29 pg (25-34); MEAN CORPUSCULAR HGB CONC 31 g/dL (32-36); MEAN CORPUSCULAR VOLUME 91 fL (80-99); MEAN PLATELET VOLUME 10.9 fL (9.0-12.2); MONOCYTES # (AUTO) 0.5 10^3/uL (0.0-1.0); MONOCYTES % (AUTO) 3 % (0-12); NEUTROPHILS # (AUTO) 13.1 10^3/uL (1.8-7.8); NEUTROPHILS % (AUTO) 89 % (42-75); PLATELET COUNT 302 10^3/uL (130-400); WHITE BLOOD COUNT 14.8 10^3/uL (4.3-11.0)
[2020-12-29 15:09] LABS: ALBUMIN 3.7 GM/DL (3.2-4.5)
[2020-12-29 15:10] LABS: POTASSIUM 4.7 MMOL/L (3.6-5.0)
[2020-12-29 15:11] LABS: CALCIUM 9.4 MG/DL (8.5-10.1)
[2020-12-29 15:12] LABS: PROTHROMBIN TIME PATIENT 13.4 SEC (12.2-14.7); TOTAL PROTEIN 6.7 GM/DL (6.4-8.2)
[2020-12-29 15:14] LABS: BILIRUBIN,TOTAL 0.6 MG/DL (0.1-1.0)
[2020-12-29 15:16] LABS: CREATININE SERUM 1.92 MG/DL (0.60-1.30)
--- NOTE | 2020-12-29 15:29 | Diagnostic Imaging Report ---
INDICATION: Pelvic pain and left hip pain. AP pelvis and AP and lateral views of the left hip are obtained. FINDINGS: There is an acute intertrochanteric fracture of the left proximal femur, with varus angulation. There is some lucency in the intertrochanteric region of the proximal femur, and possibility this may be a pathologic fracture should be considered. There is advanced degenerative change of the right hip joint with severe joint space narrowing and subchondral sclerosis. There is osteopenia. IMPRESSION: Acute intertrochanteric fracture of left proximal femur, there is some associated lucency, the possibility this may be a pathologic fracture should be considered. There is also extensive degenerative change of the right hip. There is osteopenia. Dictated by: Dictated on workstation # [id number]
--- NOTE | 2020-12-29 15:31 | Diagnostic Imaging Report ---
EXAMINATION: Portable erect AP chest at 03:12 p.m. INDICATION: Injury, chest pain. FINDINGS: The heart is stable in size when compared to the prior exam of 07/10/2020. The central pulmonary vasculature is somewhat prominent but no different than on the prior exam. There is no sign of failure, pneumonia, or pleural effusion to indicate an acute abnormality. There is no pulmonary contusion or pneumothorax identified either. The superior mediastinum on the right is somewhat prominent but no different than on the previous study. The osseous structures are intact. IMPRESSION: There is no evidence for an acute cardiopulmonary abnormality. Dictated by: Dictated on workstation # [id number]
[2020-12-29 15:37] LABS: LYMPHOCYTES % (MANUAL) 5 %; MONOCYTES % (MANUAL) 1 %; NEUTROPHILS % (MANUAL) 94 %; RBC MORPH NORMAL
[2020-12-29] MEDS ORDERED: HYDROmorphone 2 MG/ML VIAL (DILAUDID) IV ONE ×3 (16:00→18:15)
--- NOTE | 2020-12-29 16:11 | ED Fall/Injury ---
General Chief Complaint: Trauma-Non Activation Stated Complaint: FALL Nursing Triage Note: PT ARRIVES TO ER BY [facility] WITH C/O L HIP PAIN FROM A FALL TODAY AROUND 1400. PT WAS AT A GARAGE SALE AND TRIPPED ON [employer] Source: patient Exam Limitations: no limitations (SUJATA LAGUERRE MD) History of Present Illness Date Seen by Provider: Dec 29, 2020 Time Seen by Provider: 14:40 Initial Comments Here by EMS with report of fall while doing red cell today. Fall occurred around 1400. States she landed on the left hip. Denies hitting her head. She does report being on blood thinners. Does report lupus and chronic steroid use. Complains of severe pain in the area of the left hip. EMS does describe rotation but did not notice significant shortening. She is quite uncomfortable without positioning on the bed. Denies other injury or concerns. She is vaccinated for COVID-19 and denies upper respiratory symptoms or Covid exposure. Occurred: just prior to arrival Severity: moderate Injuries/Pain Location: pelvis, lower extremity Context: tripped (Uneven concrete) Loss of Consciousness: no loss of consciousness Modifying Factors: Improves With Immobilization; Worse With Movement Associated Symptoms (Fall): No Abdominal Pain, No Headache, No Lightheadedness (SUJATA LAGUERRE MD) Allergies and Home Medications Allergies Coded Allergies: No Known Drug Allergies (Verified , 10/21/08) Patient Home Medication List Home Medication List Reviewed: Yes (SUJATA LAGUERRE MD) Amlodipine Besylate (Amlodipine Besylate) 5 Mg Tablet, 5 MG PO DAILY Prescribed by: SERINA DEL REAL on 07/12/20 1116 Apixaban (Eliquis) 2.5 Mg Tablet, 2.5 MG PO BID, (Reported) Entered as Reported by: KETURAH FLORES on 01/24/20 1422 Aspirin (Aspirin EC) 81 Mg Tablet.dr, 81 MG PO DAILY Prescribed by: SERINA DEL REAL on 07/12/20 1116 Cholecalciferol (Vitamin D3) (Vitamin D3) 25 Mcg Tablet, 25 MCG PO DAILY, (Reported) Entered as Reported by: MARIA ESTHER CATALAN on 07/11/20 1120 Clopidogrel Bisulfate (Clopidogrel) 75 Mg Tablet, 75 MG PO DAILY Prescribed by: SERINA DEL REAL on 07/12/20 1116 Hydrocodone/Acetaminophen (Hydrocodone-Acetamin 5-325 mg) 1 Each Tablet, 1 EA PO TID PRN for PAIN-MODERATE (5-7), (Reported) Entered as Reported by: MARIA ESTHER CATALAN on 10/19/19 1508 Isosorbide Mononitrate (Isosorbide Mononitrate ER) 60 Mg Tab, 60 MG PO DAILY, (Reported) Entered as Reported by: MARIA ESTHER CATALAN on 07/11/20 1120 Metoprolol Succinate (Metoprolol Succinate) 100 Mg Tab.er.24h, 100 MG PO DAILY, (Reported) Entered as Reported by: KETURAH FLORES on 01/24/20 1422 Multivitamin (Multivitamin) 1 Each Tablet, 1 EACH PO DAILY, (Reported) Entered as Reported by: MARIA ESTHER CATALAN on 07/11/20 1120 Nitroglycerin (Nitroglycerin) 0.4 Mg Tab.subl, 0.4 MG PO UD PRN for CHEST PAIN (ANGINA), (Reported) Entered as Reported by: MARIA ESTHER CATALAN on 07/11/20 1120 Pantoprazole Sodium (Protonix) 40 Mg Tablet.dr, 40 MG PO DAILY Prescribed by: SERINA DEL REAL on 07/12/20 1116 Prednisone (Prednisone) 10 Mg Tab, 10 MG PO DAILY, (Reported) Entered as Reported by: MIGUEL ANGEL BERMUDEZ on 07/16/18 0834 Vilazodone Hydrochloride (Viibryd) 20 Mg Tablet, 20 MG PO DAILY, (Reported) Entered as Reported by: DAI MOJICA on 10/30/182024 Review of Systems Review of Systems Constitutional: see HPI; No chills, No fever Ears, Nose, Mouth, Throat: no symptoms reported Respiratory: No cough, No short of breath Cardiovascular: No chest pain, No edema Gastrointestinal: No abdominal pain, No nausea, No vomiting Genitourinary: no symptoms reported Musculoskeletal: joint pain, muscle pain Skin: No change in color, No lesions Psychiatric/Neurological: No Symptoms Reported (SUJATA LAGUERRE MD) Past Ghzfdjd-Soletp-Fngkgk Hx Patient Social History Tobacco Use?: Yes Tobacco type used: Cigarettes Smoking Status: Current Everyday Smoker Substance use?: No Alcohol Use?: No Pt feels they are or have been: No (SUJATA LAGUERRE MD) Immunizations Up To Date Tetanus Booster (TDap): Less than 5yrs PED Vaccines UTD: No Influenza Vaccine Up-to-Date: No; Not Current First/Initial COVID19 Vaccinat: MAY 2020 Second COVID19 Vaccination Rod: JUNE 2020 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 (SUJATA LAGUERRE MD) Seasonal Allergies Seasonal Allergies: No (SUJATA LAGUERRE MD) Past Medical History Surgeries: Yes (MODIFIED RADICAL VULVECTOMY 1991/CHOLECYSTECTOMY;CARDIAC CATHS- STENT X 1) Abdominal, Adenoidectomy, Cardiac, Coronary Stent, Gallbladder, Hysterectomy, Oophorectomy, Orthopedic, Tonsillectomy Respiratory: Yes (REFUSES TO WEAR CPAP) Pneumonia, Sleep Apnea Currently Using CPAP: No Currently Using BIPAP: No Cardiac: Yes (HX AORTIC/RENAL ART THROMBUS;GANGRENE/TOES;V- TACH;BRADYCARDIA;ASVD) Coronary Artery Disease, Heart Attack, High Cholesterol, Hypertension, Irregular Heartbeat Neurological: Yes (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) Neuropathy, Stroke, TIA 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 Disorders: Yes (HX OF CERVICAL AND VULVAR CA--MODIFIED RADICAL VULVECTOMY 1991;HYST/BSO) 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 Disorders: Denies 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 History: Hysterectomy, Menopausal Sexually Transmitted Disease: No HIV/AIDS: No Genitourinary: Yes (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) Bladder Infection, Renal Failure Gastrointestinal: Yes (S/P CHOLECYSTECTOMY) Gastroesophageal Reflux, Chronic Diarrhea, Hiatal Hernia, Gall Bladder Disease Musculoskeletal: Yes (GANGRENE OF TOES-TX WITH ANTIBIOTICS; ISCHEMIC FOOT ULCER) Arthritis, Fibromyalgia Endocrine: Yes Lupus HEENT: No Loss of Vision: Left Hearing Impairment: Denies Cancer: Yes Cervical, Vaginal Did You Recieve Any Treatments: Yes What Type of Treatment Did You: Chemotherapy, Radiation, Surgical Intervention Psychosocial: Yes Anxiety Integumentary: Yes (History of "gangrene" of the toes.; ISCHEMIC FOOT ULCER) Blood Disorders: No Adverse Reaction/Blood Tranf: No (SUJATA LAGUERRE MD) Family Medical History Reviewed Nursing Family Hx (SUJATA LAGUERRE MD) Arthritis 19 FATHER 19 MOTHER Cardiovascular disease 19 MOTHER Completed stroke 19 MOTHER maternal grandmother Congenital heart disease 19 MOTHER Diabetes mellitus 19 MOTHER maternal grandmother Hypercholesterolemia 19 MOTHER maternal grandmother Hypertension 19 MOTHER maternal grandmother Myocardial infarction maternal grandmother Tuberculosis paternal great grandfather No Pertinent Family Hx PAST SURGICAL HISTORY: -CARDIAC CATHS-STENT X 1 TO CIRCUMFLEX 09/2019 -MODIFIED RADICAL VULVECTOMY 1991 -HYSTERECTOMY/BILATERAL SALPINGO-OOPHORECTOMY -CHOLECYSTECTOMY -RIGHT ANKLE FX/ORIF -VENTRAL HERNIA REPAIR -DENTAL EXTRACTIONS -TONSILLECTOMY/ADENOIDECTOMY ADDITIONAL PAST MEDICAL HISTORY: -NSTEMI -HAS BEEN REFERRED TO CARDIOVASCULAR SURGEON FOR BYPASS, BUT OPTED FOR CONSERVATIVE MANAGEMENT -DIFFUSE ASVD -PERIPHERAL ARTERY DISEASE WITH ISCHEMIC FOOT ULCER IN PAST -RIGHT RENAL ARTERY THROMBUS--NO SURGICAL TREATMENT -BRADYCARDIA--VENTRICULAR TACHYCARDIA -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 0oz. [id number]; 22.00 BMI Method:Stated General Appearance: WD/WN, no apparent distress HEENT: PERRL/EOMI, pharynx normal Neck: full range of motion, supple Cardiovascular: regular rate, rhythm, no murmur Respiratory: lungs clear, normal breath sounds Peripheral Pulses: 2+ Dorsalis Pedis (R), 2+ Left Dors-Pedis (L), 2+ Radial Pulses (R), 2+ Radial Pulses (L) Gastrointestinal: non tender, soft Back: no CVA tenderness; No vertebral tenderness Extremities: pelvis stable, other (Marked tenderness at the area of the left hip. Mild shortening on the left. No rotation.) Neurologic/Psychiatric: alert, oriented x 3 Skin: normal color, warm/dry (SUJATA LAGUERRE MD) Minal Coma Score Best Eye Response: (4) Open Spontaneously Best Verbal Response: (5) Oriented Best Motor Response: (6) Obeys Commands (SUJATA LAGUERRE MD) Progress/Results/Core Measures Results/Orders Lab Results Laboratory Tests Test 12/29/20 14:50 12/29/20 16:06 12/29/20 16:50 Range/Units White Blood Count 14.8 H 4.3-11.0 10^3/uL Red Blood Count 4.18 3.80-5.11 10^6/uL Hemoglobin 11.9 11.5-16.0 g/dL Hematocrit 38 35-52 % Mean Corpuscular Volume 91 80-99 fL Mean Corpuscular Hemoglobin 29 25-34 pg Mean Corpuscular Hemoglobin Concent 31 L 32-36 g/dL Red Cell Distribution Width 15.0 H 10.0-14.5 % Platelet Count 302 130-400 10^3/uL Mean Platelet Volume 10.9 9.0-12.2 fL Immature Granulocyte % (Auto) 1 % Neutrophils (%) (Auto) 89 H 42-75 % Lymphocytes (%) (Auto) 7 L 12-44 % Monocytes (%) (Auto) 3 0-12 % Eosinophils (%) (Auto) 0 0-10 % Basophils (%) (Auto) 0 0-10 % Neutrophils # (Auto) 13.1 H 1.8-7.8 10^3/uL Lymphocytes # (Auto) 1.1 1.0-4.0 10^3/uL Monocytes # (Auto) 0.5 0.0-1.0 10^3/uL Eosinophils # (Auto) 0.0 0.0-0.3 10^3/uL Basophils # (Auto) 0.0 0.0-0.1 10^3/uL Immature Granulocyte # (Auto) 0.1 0.0-0.1 10^3/uL Neutrophils % (Manual) 94 % Lymphocytes % (Manual) 5 % Monocytes % (Manual) 1 % Blood Morphology Comment NORMAL Prothrombin Time 13.4 12.2-14.7 SEC INR Comment 1.0 0.8-1.4 Activated Partial Thromboplast Time 25 24-35 SEC Sodium Level 137 135-145 MMOL/L Potassium Level 4.7 3.6-5.0 MMOL/L Chloride Level 107 98-107 MMOL/L Carbon Dioxide Level 17 L 21-32 MMOL/L Anion Gap 13 5-14 MMOL/L Blood Urea Nitrogen 32 H 7-18 MG/DL Creatinine 1.92 H 0.60-1.30 MG/DL Estimat Glomerular Filtration Rate 26 BUN/Creatinine Ratio 17 Glucose Level 119 H 70-105 MG/DL Calcium Level 9.4 8.5-10.1 MG/DL Corrected Calcium 9.6 8.5-10.1 MG/DL Total Bilirubin 0.6 0.1-1.0 MG/DL Aspartate Amino Transf (AST/SGOT) 13 5-34 U/L Alanine Aminotransferase (ALT/SGPT) 13 0-55 U/L Alkaline Phosphatase 66 40-136 U/L Total Protein 6.7 6.4-8.2 GM/DL Albumin 3.7 3.2-4.5 GM/DL SARS-CoV-2 RNA (RT-PCR) Not Detected Not Detecte Urine Color YELLOW Urine Clarity CLEAR Urine pH 6.0 5-9 Urine Specific Egan 1.020 1.016-1.022 Urine Protein TRACE H NEGATIVE Urine Glucose (UA) NEGATIVE NEGATIVE Urine Ketones NEGATIVE NEGATIVE Urine Nitrite NEGATIVE NEGATIVE Urine Bilirubin NEGATIVE NEGATIVE Urine Urobilinogen 0.2 < = 1.0 MG/DL Urine Leukocyte Esterase NEGATIVE NEGATIVE Urine RBC (Auto) NEGATIVE NEGATIVE Urine RBC NONE /HPF Urine WBC NONE /HPF Urine Squamous Epithelial Cells NONE /HPF Urine Crystals NONE /LPF Urine Bacteria NEGATIVE /HPF Urine Casts NONE /LPF Urine Mucus NEGATIVE /LPF Urine Culture Indicated NO (KEY MERCADO) My Orders Orders - KEY MERCADO Ketamine Syringe (Ketamine Syringe) (12/29/20 19:30) Fentanyl Inj (Sublimaze Injection) (12/29/20 19:30) Ns (Ivpb) (Sodium Chloride 0.9% Ivpb Bag (12/29/20 19:34) (KEY MERCADO) Medications Given in ED Current Medications Medications Dose Ordered Sig/Kenneth Route Start Time Stop Time Status Last Admin Dose Admin Fentanyl Citrate 50 mcg ONCE ONCE IVP 12/29/20 19:30 12/29/20 19:31 DC 12/29/20 19:39 50 MCG Hydromorphone HCl 0.5 mg ONCE ONCE IV 12/29/20 16:00 12/29/20 16:01 DC 12/29/20 16:04 0.5 MG Hydromorphone HCl 0.5 mg ONCE ONCE IV 12/29/20 17:00 12/29/20 17:01 DC 12/29/20 17:16 0.5 MG Hydromorphone HCl 0.5 mg ONCE ONCE IV 12/29/20 18:15 12/29/20 18:16 DC 12/29/20 18:12 0.5 MG Ketamine HCl 25 mg ONCE ONCE IV 12/29/20 19:30 10/8/21 19:31 DC 12/29/20 19:39 25 MG Nicotine 21 mg ONCE ONCE TD 12/29/20 18:15 12/29/20 18:16 DC 12/29/20 18:12 21 MG (KEY MERCADO) Vital Signs/I&O 12/29/20 12/29/20 12/29/20 14:50 14:50 21:41 Temp 36.4 36.4 36.6 Pulse 61 61 50 Resp 18 18 14 B/P (MAP) 150/91 (110) 150/91 (110) 114/51 Pulse Ox 98 98 100 O2 Delivery Room Air Room Air (KEY MERCADO) Blood Pressure Mean: 110 Progress Progress Note : Progress Note Seen and evaluated. X-ray left hip and pelvis. Labs ordered. IV established. Fentanyl 50 mcg IV. Patient n.p.o. Monitor patient. 1600: I did discuss the case with the orthopedist on-call, Dr. Wray. He is very concerned secondary to osteoporosis and thinning as well as age that she needs full hip replacement. He is recommending transfer to center capable of doing that as this is not a procedure who performs. I did discuss this with the patient and she accepts potential for transfer. We have have added Covid testing, Gonzalez catheter and are giving Dilaudid 0.5 mg IV for pain. She will be moved to a hospital bed as transfer will likely be delayed as we have no ambulances and there is no local centers with bed capacity. 1755: Patient has been accepted at [facility] in [facility] in ED to ED transfer. We do not currently have EMS available and so we are working on finding transfer service. [place] control is helping with that. Discussed with patient who is agreeable. Repeat Dilaudid 0.5 mg IV for pain given earlier. Monitor patient. 03/31/2004: We will go ahead and give nicotine patch as she has been a long-term smoker. We will also repeat Dilaudid 0.5 mg IV for pain. Pending transfer. (SUJATA LAGUERRE MD) Diagnostic Imaging Diagonstic Imaging: Xray Plain Films/CT/US/NM/MRI: pelvis, hip Comments [facility] [place], [place] NAME: EUGENIO PARKER [facility] REC#: [id number] PT STATUS: REG ER : 1945 PHYSICIAN: SUJATA LAGUERRE MD ADMIT DATE: 12/29/20/ER Draft Date of Exam:12/29/20 PELVIS WITH LEFT HIP 2-3 VIEWS INDICATION: Pelvic pain and left hip pain. AP pelvis and AP and lateral views of the left hip are obtained. FINDINGS: There is an acute intertrochanteric fracture of the left proximal femur, with varus angulation. There is some lucency in the intertrochanteric region of the proximal femur, and possibility this may be a pathologic fracture should be considered. There is advanced degenerative change of the right hip joint with severe joint space narrowing and subchondral sclerosis. There is osteopenia. IMPRESSION: Acute intertrochanteric fracture of left proximal femur, there is some associated lucency, the possibility this may be a pathologic fracture should be considered. There is also extensive degenerative change of the right hip. There is osteopenia. Dictated on workstation # [id number] Dict: 12/29/20 1522 Trans: 12/29/20 1528 [id number] Interpreted by: KALEB CORMIER MD Electronically signed by: Reviewed: Reviewed by Me Diagonstic Imaging: Xray Plain Films/CT/US/NM/MRI: chest Comments [facility] [place] NAME: EUGENIO PARKER [facility] REC#: [id number] PT STATUS: REG ER : 1945 PHYSICIAN: SUJATA LAGUERRE MD ADMIT DATE: 12/29/20/ER Draft Date of Exam:12/29/20 CHEST 1 VIEW, AP/PA ONLY EXAMINATION: Portable erect AP chest at 03:12 p.m. INDICATION: Injury, chest pain. FINDINGS: The heart is stable in size when compared to the prior exam of 07/10/2020. The central pulmonary vasculature is somewhat prominent but no different than on the prior exam. There is no sign of failure, pneumonia, or pleural effusion to indicate an acute abnormality. There is no pulmonary contusion or pneumothorax identified either. The superior mediastinum on the right is somewhat prominent but no different than on the previous study. The osseous structures are intact. IMPRESSION: There is no evidence for an acute cardiopulmonary abnormality. Dictated on workstation # [id number] Dict: 12/29/20 1522 Trans: 12/29/20 1530 [id number] Interpreted by: KADEEM CREWS MD Electronically signed by: Reviewed: Reviewed by Me (SUJATA LAGUERRE MD) Departure Impression Primary Impression: Hip fracture, left Qualified Codes: S72.002A - Fracture of unspecified part of neck of left femur, initial encounter for closed fracture Disposition: XFER SHT-TRM HOSP Condition: Stable Transfer Transfer Reason: Exceeds level of care Time Spoke to Accepting Phy: 17:53 Transfer Facility: [place], [place], Dr. Ferro accepting Method of Transfer: EMS (SUJATA LAGUERRE MD) Transfer Time: 22:45 (KEY MERCADO) Departure-Patient Inst. [facility]errals[facility] ([facility]Family) Primary Care Physician SUJATA LAGUERRE MD Dec 29, 2020 16:11 KEY MERCADO Dec 29, 2020 22:36
[2020-12-29 17:06] LABS: BILIRUBIN,URINE NEGATIVE (NEGATIVE); CLARITY,URINE CLEAR; COLOR,URINE YELLOW; GLUCOSE, URINE (UA) NEGATIVE (NEGATIVE); KETONES,URINE NEGATIVE (NEGATIVE); LEUKOCYTE ESTERASE ,URINE NEGATIVE (NEGATIVE); NITRITE,URINE NEGATIVE (NEGATIVE); PROTEIN,URINE TRACE (NEGATIVE)
[2020-12-29 17:33] LABS: BACTERIA,URINE NEGATIVE /HPF
[2020-12-29] MEDS ORDERED: NICOTINE 21 MG (NICODERM) PATCH TD ONE (18:15)
[2020-12-29] MEDS ORDERED: KETAMINE SYRINGE 50 MG/5 ML SYRINGE IV ONE (19:30)
[2020-12-29] MEDS ORDERED: fentaNYL INJ 100 MCG/2 ML AMP IVP ONE (19:30)
[2020-12-29] MEDS ORDERED: NS (IVPB) 100 ML ONE (19:34)
[2020-12-29 21:41] VITALS: BP 114/51
== END 2020-12-29 22:38 | disposition short-term general hospital (02) ==
LOC: EDUNIT# 14:39 → ER 14:40
DX: S72.142A Displaced intertrochanteric fracture of left femur, initial encounter for closed fracture (principal); I10 Essential (primary) hypertension; I25.2 Old myocardial infarction; I25.10 Atherosclerotic heart disease of native coronary artery without angina pectoris; F41.9 Anxiety disorder, unspecified; M79.7 Fibromyalgia; K21.9 Gastro-esophageal reflux disease without esophagitis; M32.9 Systemic lupus erythematosus, unspecified; F17.210 Nicotine dependence, cigarettes, uncomplicated; Z20.822 Contact with and (suspected) exposure to COVID-19; Z86.73 Personal history of transient ischemic attack (TIA), and cerebral infarction without residual deficits; Z85.41 Personal history of malignant neoplasm of cervix uteri; Z80.49 Family history of malignant neoplasm of other genital organs; Z90.49 Acquired absence of other specified parts of digestive tract; Z90.710 Acquired absence of both cervix and uterus; Z90.722 Acquired absence of ovaries, bilateral; Z95.5 Presence of coronary angioplasty implant and graft; Z79.52 Long term (current) use of systemic steroids; Z79.01 Long term (current) use of anticoagulants; Z79.02 Long term (current) use of antithrombotics/antiplatelets; Z79.82 Long term (current) use of aspirin; Z79.899 Other long term (current) drug therapy; W01.0XXA Fall on same level from slipping, tripping and stumbling without subsequent striking against object, initial encounter
CPT/HCPCS: 36415; 51702; 71045; 80053; 81000; 85007; 85027; 85610; 85730; 87636

== ENCOUNTER 2021-09-20 05:38 | Outpatient (CLI) | payer MEDICARE, MEDICAID ==
[~2021-09-20] VITALS: Ht 140 cm; Wt 50.0 kg
[~2021-09-20 05:38] MED LIST changes: -VANC1VIA35 IV; +VANC1VIA39 IV
[2021-09-21] MEDS ORDERED: HYDR200T78 PO (13:23)
== END 2021-09-21 13:29 | disposition home or self-care (01) ==
LOC: PREOP 05:38
PROVIDERS: ATTEND Specialist
DX: Z01.818 Encounter for other preprocedural examination (principal)

== ENCOUNTER 2021-09-28 11:45 | Day surgery (SDC) | payer MEDICARE, MEDICAID ==
[~2021-09-28] VITALS: Ht 140 cm; Wt 50.0 kg
[~2021-09-28 11:45] MED LIST changes: +HYDR200T78 PO
[2021-09-28] MEDS ORDERED: LIDOCAINE PF 1% 2 ML VIAL IR PRN (12:45)
[2021-09-28] MEDS ORDERED: TIMOLOL MALEATE 0.5% 5 ML (TIMOPTIC) BTL OU PRN (12:45)
[2021-09-28] MEDS ORDERED: MOXIFLOXACIN OPHTH SOLN 5 MG/ML 0.3 ML SYRINGE OP ONE (12:45)
[2021-09-28] MEDS ORDERED: POVIDONE (BETADINE) OPHTH SOLN 5% 30 ML OP ONE (12:45)
[2021-09-28] MEDS: TETRACAINE 0.5% OPHTH SOLN 4 ML BTL (SINGLE DOSE ONLY) OU PRN ×3 (12:47→13:09)
[2021-09-28 12:54] VITALS: BP 157/78
[2021-09-28] MEDS: TROPICAMIDE 1% OPH SOLN (MYDRIACYL) 15 ML BTL OP SCH ×3 (12:57→13:09)
[2021-09-28] MEDS: PHENYLEPHRINE 10% OPHTH (NEO-SYN) 5 ML BTL OU SCH ×3 (12:57→13:09)
--- NOTE | 2021-09-28 13:08 | Ophthalmologist Pre-Op Note ---
Pre-Operative Progress Note H&P Reviewed The H&P was reviewed, patient examined and no changes noted. Date H&P Reviewed: Sep 28, 2021 Time H&P Reviewed: 13:08 Pre-Op Dx Cataract, Left Eye JULIO GATES MD Sep 28, 2021 13:08
--- NOTE | 2021-09-28 13:30 | Ophthalmology Operative Report ---
Cataract removal/placement IOL PREOPERATIVE DIAGNOSIS: Cataract Left Eye POSTOPERATIVE DIAGNOSIS: Cataract Left Eye PROCEDURE: Cataract removal and placement of posterior chamber implant, left eye SURGEON: Dominic Gates ANESTHESIA: Topical with sedation COMPLICATIONS: None ESTIMATED BLOOD LOSS: Minimal DESCRIPTION OF PROCEDURE: After proper informed consent was obtained, the patient, a 76 female, was taken to the Operating Room and the left eye was anesthetized with tetracaine. The left eye was then prepped and draped in the usual manner. A wire lid speculum was placed. A paracentesis was made at the left hand position. Preservative free lidocaine was injected into the anterior chamber followed by viscoelastic. A clear corneal incision was made in the temporal position. A capsulorrhexis was preformed and the central nuclear and cortical material were removed. The posterior capsule was polished and an Manpreet 15.5 AU00T0 was placed into the capsular bag. The residual viscoelastic was aspirated and balanced saline solution was injected into the anterior chamber. Moxifloxacin was injected into the anterior chamber. The wound was checked and found to be water tight. The patient tolerated the procedure well without complications. DOMINIC GATES MD Sep 28, 2021 13:29
[2021-09-28] MEDS ORDERED: MIDAZOLAM 2 MG/2 ML (VERSED) VIAL ONE (13:33)
[2021-09-28 13:45] VITALS: BP 157/80
--- NOTE | 2021-09-28 13:48 | Anesthesia-General Post-Op ---
MAC Patient Condition Mental Status/LOC: Same as Preop Cardiovascular: Satisfactory Nausea/Vomiting: Absent Respiratory: Satisfactory Pain: Controlled Complications: Absent Post Op Complications Complications None Follow Up Care/Instructions Patient Instructions None needed. Anesthesiology Discharge Order Discharge Order Patient is doing well, no complaints, stable vital signs, no apparent adverse anesthesia problems. No complications reported per nursing. SARAH VARGAS CRNA Sep 28, 2021 13:48
[2021-09-28] MEDS ORDERED: acetaZOLAMIDE ER 500 MG CAP (DIAMOX SEQUELS) PO ONE (14:15)
== END 2021-09-28 13:46 | disposition home or self-care (01) ==
LOC: SDC 11:45
PROVIDERS: ATTEND Specialist
DX: H25.9 Unspecified age-related cataract (principal); F17.290 Nicotine dependence, other tobacco product, uncomplicated; Z85.41 Personal history of malignant neoplasm of cervix uteri; Z85.89 Personal history of malignant neoplasm of other organs and systems; Z95.5 Presence of coronary angioplasty implant and graft
CPT/HCPCS: 66984; V2632

== ENCOUNTER 2021-10-09 06:12 | Outpatient (CLI) | payer MEDICARE, MEDICAID | END 2021-10-09 13:57 | disposition home or self-care (01) | LOC: PREOP 06:12 | PROVIDERS: ATTEND Specialist | DX: Z01.818 Encounter for other preprocedural examination (principal) ==

== ENCOUNTER 2021-10-12 10:42 | Day surgery (SDC) | payer MEDICARE, MEDICAID ==
[~2021-10-12] VITALS: Ht 140 cm; Wt 50.0 kg
[2021-10-12] MEDS ORDERED: TIMOLOL MALEATE 0.5% 5 ML (TIMOPTIC) BTL OU PRN (10:45)
[2021-10-12] MEDS ORDERED: MOXIFLOXACIN OPHTH SOLN 5 MG/ML 0.3 ML SYRINGE OP ONE (10:45)
[2021-10-12] MEDS ORDERED: POVIDONE (BETADINE) OPHTH SOLN 5% 30 ML OP ONE (10:45)
[2021-10-12] MEDS: TETRACAINE 0.5% OPHTH SOLN 4 ML BTL (SINGLE DOSE ONLY) OU PRN ×4 (10:54→11:10)
[2021-10-12] MEDS: PHENYLEPHRINE 10% OPHTH (NEO-SYN) 5 ML BTL OU SCH ×3 (11:00→11:10)
[2021-10-12] MEDS: TROPICAMIDE 1% OPH SOLN (MYDRIACYL) 15 ML BTL OP SCH ×3 (11:00→11:10)
[2021-10-12 11:03] VITALS: BP 175/82
--- NOTE | 2021-10-12 11:45 | Ophthalmologist Pre-Op Note ---
Pre-Operative Progress Note H&P Reviewed The H&P was reviewed, patient examined and no changes noted. Date H&P Reviewed: Oct 12, 2021 Time H&P Reviewed: 11:45 Pre-Op Dx Cataract, Right Eye JULIO GATES MD Oct 12, 2021 11:45
[2021-10-12] MEDS ORDERED: MIDAZOLAM 2 MG/2 ML (VERSED) VIAL ONE (12:01)
--- NOTE | 2021-10-12 12:18 | Ophthalmology Operative Report ---
Cataract removal/placement IOL PREOPERATIVE DIAGNOSIS: Cataract Right Eye POSTOPERATIVE DIAGNOSIS: Cataract Right Eye PROCEDURE: Cataract removal and placement of posterior chamber implant, right eye SURGEON: Dominic Gates ANESTHESIA: Topical with sedation COMPLICATIONS: None ESTIMATED BLOOD LOSS: Minimal DESCRIPTION OF PROCEDURE: After proper informed consent was obtained, the patient, a 76 female, was taken to the Operating Room and the right eye was anesthetized with tetracaine. The right eye was then prepped and draped in the usual manner. A wire lid speculum was placed. A paracentesis was made at the left hand position. Preservative free lidocaine was injected into the anterior chamber followed by viscoelastic. A clear corneal incision was made in the temporal position. A capsulorrhexis was preformed and the central nuclear and cortical material were removed. The posterior capsule was polished and Manpreet 16.0 AU00T0 IOL was placed into the capsular bag. The residual viscoelastic was aspirated and balanced saline solution was injected into the anterior chamber. Moxifloxacin was injected into the anterior chamber. The wound was checked and found to be water tight. The patient tolerated the procedure well without complications. DOMINIC GATES MD Oct 12, 2021 12:18
[2021-10-12 12:25] VITALS: BP 157/79
[2021-10-12] MEDS ORDERED: acetaZOLAMIDE ER 500 MG CAP (DIAMOX SEQUELS) PO ONE (13:00)
--- NOTE | 2021-10-12 13:12 | Anesthesia-General Post-Op ---
MAC Patient Condition Mental Status/LOC: Same as Preop Cardiovascular: Satisfactory Nausea/Vomiting: Absent Respiratory: Satisfactory Pain: Controlled Complications: Absent Post Op Complications Complications None Follow Up Care/Instructions Patient Instructions None needed. Anesthesiology Discharge Order Discharge Order Patient is doing well, no complaints, stable vital signs, no apparent adverse anesthesia problems. No complications reported per nursing. ARAM MARTÍNEZ CRNA Oct 12, 2021 13:12
== END 2021-10-12 12:26 | disposition home or self-care (01) ==
LOC: SDC 10:42
PROVIDERS: ATTEND Specialist
DX: H25.9 Unspecified age-related cataract (principal); F17.290 Nicotine dependence, other tobacco product, uncomplicated; Z85.41 Personal history of malignant neoplasm of cervix uteri; Z79.01 Long term (current) use of anticoagulants; Z79.82 Long term (current) use of aspirin; Z79.52 Long term (current) use of systemic steroids
CPT/HCPCS: 66984; V2632

== ENCOUNTER → 2021-12-13 | Outpatient (CLI) | payer MEDICARE, MEDICAID | LOC: LAB 13:47 | PROVIDERS: ATTEND Specialist | DX: B45.0 Pulmonary cryptococcosis (principal); M32.19 Other organ or system involvement in systemic lupus erythematosus; B18.2 Chronic viral hepatitis C | CPT/HCPCS: 36415; 87522 ==

== ENCOUNTER 2022-04-03 08:21 | Emergency (ER) | payer MEDICARE, MEDICAID ==
[~2022-04-03] VITALS: Ht 145 cm; Wt 47.0 kg
--- NOTE | 2022-04-03 08:59 | ED General ---
General Chief Complaint: General Problems/Pain Stated Complaint: BACK AND LEG PAIN Nursing Triage Note: Pt brought to ER in wheelchair w c/o throbbing persistent lower back and leg pain that is chronic. patient states she ran out of pain pills and the pain has continued to get worse over the last 3 weeks. Source of Information: Patient Exam Limitations: Other (patient is in significant pain) History of Present Illness Date Seen by Provider: Apr 03, 2022 Time Seen by Provider: 08:49 Initial Comments 76-year-old female with history of chronic back pain presents to the emergency department for exacerbation of her pain. She was seen at her primary care doctor's office on for increased pain. She is taking hydrocodone 5/325 and was told that they would increase the dose. She called this week and was told that they can increase it until Friday. She has no new injuries. Symptoms are exactly the pain is chronic pain in the area. No loss of bowel or bladder control. No weakness numbness or tingling in her bilateral lower extremities. She is still able to ambulate. Allergies and Home Medications Allergies Coded Allergies: No Known Drug Allergies (Verified , 10/21/08) Patient Home Medication List Home Medication List Reviewed: Yes Amlodipine Besylate (Amlodipine Besylate) 5 Mg Tablet, 5 MG PO DAILY Prescribed by: SERINA DEL REAL on 07/12/20 1116 Apixaban (Eliquis) 2.5 Mg Tablet, 2.5 MG PO BID, (Reported) Entered as Reported by: KETURAH FLORES on 01/24/20 1422 Aspirin (Aspirin EC) 81 Mg Tablet.dr, 81 MG PO DAILY Prescribed by: SERINA DEL REAL on 07/12/20 1116 Cholecalciferol (Vitamin D3) (Vitamin D3) 25 Mcg Tablet, 25 MCG PO DAILY, (Reported) Entered as Reported by: MARIA ESTHER CATALAN on 07/11/20 1120 Clopidogrel Bisulfate (Clopidogrel) 75 Mg Tablet, 75 MG PO DAILY Prescribed by: SERINA DEL REAL on 07/12/20 1116 Hydrocodone/Acetaminophen (Hydrocodone-Acetamin 5-325 mg) 1 Each Tablet, 1 EA PO TID PRN for PAIN-MODERATE (5-7), (Reported) Entered as Reported by: MARIA ESTHER CATALAN on 10/19/19 1508 Hydroxychloroquine Sulfate (Plaquenil) 200 Mg Tablet, 200 MG PO DAILY, (Reported) Entered as Reported by: NABIL RAMIREZ on 09/21/21 1323 Metoprolol Succinate (Metoprolol Succinate) 100 Mg Tab.er.24h, 100 MG PO DAILY, (Reported) Entered as Reported by: KETURAH FLORES on 01/24/20 1422 Multivitamin (Multivitamin) 1 Each Tablet, 1 EACH PO DAILY, (Reported) Entered as Reported by: MARIA ESTHER CATALAN on 07/11/20 1120 Nitroglycerin (Nitroglycerin) 0.4 Mg Tab.subl, 0.4 MG PO UD PRN for CHEST PAIN (ANGINA), (Reported) Entered as Reported by: MARIA ESTHER CATALAN on 07/11/20 1120 Prednisone (Prednisone) 10 Mg Tab, 10 MG PO DAILY, (Reported) Entered as Reported by: MIGUEL ANGEL BERMUDEZ on 07/16/18 0834 Vilazodone Hydrochloride (Viibryd) 20 Mg Tablet, 20 MG PO DAILY, (Reported) Entered as Reported by: DAI MOJICA on 10/30/182024 Review of Systems Review of Systems Constitutional: no symptoms reported EENTM: no symptoms reported Respiratory: no symptoms reported Cardiovascular: no symptoms reported Gastrointestinal: no symptoms reported Genitourinary: no symptoms reported Musculoskeletal: back pain Skin: no symptoms reported Psychiatric/Neurological: No Symptoms Reported Hematologic/Lymphatic: No Symptoms Reported Immunological/Allergic: no symptoms reported Past Ogqrkpz-Kuizuf-Ivswhf Hx Patient Social History Tobacco Use?: Yes Tobacco type used: Cigarettes Smoking Status: Current Everyday Smoker Substance use?: No Alcohol Use?: Yes Alcohol Frequency: Rarely Immunizations Up To Date Tetanus Booster (TDap): Less than 5yrs PED Vaccines UTD: No First/Initial COVID19 Vaccinat: RECEIVED, UNK WHEN Second COVID19 Vaccination Rod: RECEIVED, UNK WHEN Third COVID19 Vaccination Date: RECEIVED, UNK WHEN Seasonal Allergies Seasonal Allergies: No Past Medical History Surgeries: Yes (MODIFIED RADICAL VULVECTOMY 1991/CHOLECYSTECTOMY;CARDIAC CATHS- STENT X 1) Abdominal, Adenoidectomy, Cardiac, Coronary Stent, Gallbladder, Hysterectomy, Oophorectomy, Orthopedic, Tonsillectomy Respiratory: Yes (REFUSES TO WEAR CPAP) Pneumonia, Sleep Apnea Currently Using CPAP: No Currently Using BIPAP: No Cardiac: Yes (HX AORTIC/RENAL ART THROMBUS;GANGRENE/TOES;V- TACH;BRADYCARDIA;ASVD) Coronary Artery Disease, Heart Attack, High Cholesterol, Hypertension, Irregular Heartbeat Neurological: Yes (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) Neuropathy, Stroke, TIA 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 Disorders: Yes (HX OF CERVICAL AND VULVAR CA--MODIFIED RADICAL VULVECTOMY 1991;HYST/BSO) 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, 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 Sexually Transmitted Disease: No HIV/AIDS: No Genitourinary: Yes (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) Bladder Infection, Renal Failure Gastrointestinal: Yes (S/P CHOLECYSTECTOMY) Gastroesophageal Reflux, Chronic Diarrhea, Hiatal Hernia, Gall Bladder Disease Musculoskeletal: Yes (GANGRENE OF TOES-TX WITH ANTIBIOTICS; ISCHEMIC FOOT ULCER) Arthritis, Fibromyalgia Endocrine: Yes Lupus HEENT: No Loss of Vision: Left Hearing Impairment: Denies Cancer: Yes Cervical, Vaginal Did You Recieve Any Treatments: Yes What Type of Treatment Did You: Chemotherapy, Radiation, Surgical Intervention Psychosocial: Yes Anxiety Integumentary: Yes (History of "gangrene" of the toes.; ISCHEMIC FOOT ULCER) Blood Disorders: No Adverse Reaction/Blood Tranf: No Family Medical History Reviewed Nursing Family Hx Arthritis 19 FATHER 19 MOTHER Cardiovascular disease 19 MOTHER Completed stroke 19 MOTHER maternal grandmother Congenital heart disease 19 MOTHER Diabetes mellitus 19 MOTHER maternal grandmother Hypercholesterolemia 19 MOTHER maternal grandmother Hypertension 19 MOTHER maternal grandmother Myocardial infarction maternal grandmother Tuberculosis paternal great grandfather No Pertinent Family Hx PAST SURGICAL HISTORY: -CARDIAC CATHS-STENT X 1 TO CIRCUMFLEX 09/2019 -MODIFIED RADICAL VULVECTOMY 1991 -HYSTERECTOMY/BILATERAL SALPINGO-OOPHORECTOMY -CHOLECYSTECTOMY -RIGHT ANKLE FX/ORIF -VENTRAL HERNIA REPAIR -DENTAL EXTRACTIONS -TONSILLECTOMY/ADENOIDECTOMY ADDITIONAL PAST MEDICAL HISTORY: -NSTEMI -HAS BEEN REFERRED TO CARDIOVASCULAR SURGEON FOR BYPASS, BUT OPTED FOR CONSERVATIVE MANAGEMENT -DIFFUSE ASVD -PERIPHERAL ARTERY DISEASE WITH ISCHEMIC FOOT 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 0oz. 73.249682qp; 22.00 BMI Method:Stated General Appearance: No Apparent Distress, WD/WN HEENT: Normal ENT Inspection, Pharynx Normal Neck: Full Range of Motion, Normal Inspection, Non Tender, Supple Respiratory: Chest Non Tender, Lungs Clear, Normal Breath Sounds, No Accessory Muscle Use, No Respiratory Distress Cardiovascular: Regular Rate, Rhythm, No Edema, No Gallop, No JVD, No Murmur, Normal Peripheral Pulses Gastrointestinal: Normal Bowel Sounds, No Organomegaly, No Pulsatile Mass, Non Tender, Soft Back: Normal Inspection, No CVA Tenderness, Vertebral Tenderness (Tenderness palpation lower lumbar region midline. No skin changes. 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 She states that her office will be prescribed hydrocodone at a higher dose. She request no further medications to be given to the patient in the emergency department at this time. Patient has no red flag symptoms and no new symptoms regarding her back pain. Impression Primary Impression: Chronic low back pain Qualified Codes: M54.50 - Low back pain, unspecified; G89.29 - Other chronic pain Disposition: 01 HOME, SELF-CARE Condition: Stable Departure-Patient Inst. Referrals: MARIA ESTHER SABILLON DO (PCP/Family) Primary Care Physician Patient Instructions: CHRONIC PAIN Add. Discharge Instructions: I spoke with Dr. Sabillon's office, they will call in your new prescription for pain medication today. She request no further pain medication be given in the emergency department. Please follow-up with their office for any continuing chronic symptoms. As always return to the emergency department for any acute symptoms or your symptoms change in any way concerning to you. All discharge instructions reviewed with patient and/or family. Voiced understanding. KIM MCLAIN DO Apr 03, 2022 08:59
[2022-04-03 09:21] VITALS: BP 155/76
== END 2022-04-03 09:21 | disposition home or self-care (01) ==
LOC: EDUNIT# 08:21 → ER 08:23
DX: M54.50 Low back pain, unspecified (principal); G89.29 Other chronic pain; F17.210 Nicotine dependence, cigarettes, uncomplicated
CPT/HCPCS: 99281

== ENCOUNTER 2022-06-10 11:24 | Emergency (ER) | payer MEDICARE, MEDICAID ==
[~2022-06-10] VITALS: Ht 146 cm; Wt 47.0 kg
--- NOTE | 2022-06-10 11:56 | ED General ---
General Chief Complaint: Chest Wall Stated Complaint: RT SIDE RIB INJ Source of Information: Patient Exam Limitations: No Limitations History of Present Illness Date Seen by Provider: Jun 10, 2022 Time Seen by Provider: 11:46 Initial Comments 76-year-old female presents to the ED with complaints of right posterior rib pain starting on . States she bent over to pick something up, and felt a pop in this area. States it hurts to take a deep breath. She was sent over from [facility] due to difficulty catching her breath while walking short distances. Denies fevers, chest pain, abdominal pain, nausea, vomiting. Allergies and Home Medications Allergies Coded Allergies: No Known Drug Allergies (Verified , 06/10/22) Patient Home Medication List Home Medication List Reviewed: Yes Amlodipine Besylate (Amlodipine Besylate) 5 Mg Tablet, 5 MG PO DAILY Prescribed by: SERINA DEL REAL on 07/12/20 111 Apixaban (Eliquis) 2.5 Mg Tablet, 2.5 MG PO BID, (Reported) Entered as Reported by: KETURAH FLORES on 01/24/20 1422 Aspirin (Aspirin EC) 81 Mg Tablet.dr, 81 MG PO DAILY Prescribed by: SERINA DEL REAL on 07/12/20 1116 Cholecalciferol (Vitamin D3) (Vitamin D3) 25 Mcg Tablet, 25 MCG PO DAILY, (Reported) Entered as Reported by: MARIA ESTHER CATALAN on 07/11/20 1120 Clopidogrel Bisulfate (Clopidogrel) 75 Mg Tablet, 75 MG PO DAILY Prescribed by: SERINA DEL REAL on 07/12/20 1116 Hydrocodone/Acetaminophen (Hydrocodone-Acetamin 5-325 mg) 1 Each Tablet, 1 EA PO TID PRN for PAIN-MODERATE (5-7), (Reported) Entered as Reported by: MARIA ESTHER CATALAN on 10/19/19 1508 Hydroxychloroquine Sulfate (Plaquenil) 200 Mg Tablet, 200 MG PO DAILY, (Reported) Entered as Reported by: NABIL RAMIREZ on 09/21/21 1323 Metoprolol Succinate (Metoprolol Succinate) 100 Mg Tab.er.24h, 100 MG PO DAILY, (Reported) Entered as Reported by: KETURAH FLORES on 01/24/20 1422 Multivitamin (Multivitamin) 1 Each Tablet, 1 EACH PO DAILY, (Reported) Entered as Reported by: MARIA ESTHER CATALAN on 07/11/20 1120 Nitroglycerin (Nitroglycerin) 0.4 Mg Tab.subl, 0.4 MG PO UD PRN for CHEST PAIN (ANGINA), (Reported) Entered as Reported by: MARIA ESTHER CATALAN on 07/11/20 1120 Prednisone (Prednisone) 10 Mg Tab, 10 MG PO DAILY, (Reported) Entered as Reported by: MIGUEL ANGEL BERMUDEZ on 07/16/18 0834 Vilazodone Hydrochloride (Viibryd) 20 Mg Tablet, 20 MG PO DAILY, (Reported) Entered as Reported by: DAI MOJICA on 10/30/182024 Review of Systems Review of Systems Constitutional: see HPI Past Jukgcid-Gzndjr-Dgzrpv Hx Immunizations Up To Date Tetanus Booster (TDap): Less than 5yrs PED Vaccines UTD: No First/Initial COVID19 Vaccinat: RECEIVED, UNK WHEN Second COVID19 Vaccination Rod: RECEIVED, UNK WHEN Third COVID19 Vaccination Date: RECEIVED, UNK WHEN Seasonal Allergies Seasonal Allergies: No Past Medical History Surgeries: Yes (MODIFIED RADICAL VULVECTOMY 1991/CHOLECYSTECTOMY;CARDIAC CATHS- STENT X 1) Abdominal, Adenoidectomy, Cardiac, Coronary Stent, Gallbladder, Hysterectomy, Oophorectomy, Orthopedic, Tonsillectomy Respiratory: Yes (REFUSES TO WEAR CPAP) Pneumonia, Sleep Apnea Currently Using CPAP: No Currently Using BIPAP: No Cardiac: Yes (HX AORTIC/RENAL ART THROMBUS;GANGRENE/TOES;V- TACH;BRADYCARDIA;ASVD) Coronary Artery Disease, Heart Attack, High Cholesterol, Hypertension, Irregular Heartbeat Neurological: Yes (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) Neuropathy, Stroke, TIA 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 Disorders: Yes (HX OF CERVICAL AND VULVAR CA--MODIFIED RADICAL VULVECTOMY 1991;HYST/BSO) 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, 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 Sexually Transmitted Disease: No HIV/AIDS: No Genitourinary: Yes (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) Bladder Infection, Renal Failure Gastrointestinal: Yes (S/P CHOLECYSTECTOMY) Gastroesophageal Reflux, Chronic Diarrhea, Hiatal Hernia, Gall Bladder Disease Musculoskeletal: Yes (GANGRENE OF TOES-TX WITH ANTIBIOTICS; ISCHEMIC FOOT ULCER) Arthritis, Fibromyalgia Endocrine: Yes Lupus HEENT: No Loss of Vision: Left Hearing Impairment: Denies Cancer: Yes Cervical, Vaginal Did You Recieve Any Treatments: Yes What Type of Treatment Did You: Chemotherapy, Radiation, Surgical Intervention Psychosocial: Yes Anxiety Integumentary: Yes (History of "gangrene" of the toes.; ISCHEMIC FOOT ULCER) Blood Disorders: No Adverse Reaction/Blood Tranf: No Family Medical History Arthritis 19 FATHER 19 MOTHER Cardiovascular disease 19 MOTHER Completed stroke 19 MOTHER maternal grandmother Congenital heart disease 19 MOTHER Diabetes mellitus 19 MOTHER maternal grandmother Hypercholesterolemia 19 MOTHER maternal grandmother Hypertension 19 MOTHER maternal grandmother Myocardial infarction maternal grandmother Tuberculosis paternal great grandfather No Pertinent Family Hx PAST SURGICAL HISTORY: -CARDIAC CATHS-STENT X 1 TO CIRCUMFLEX 09/2019 -MODIFIED RADICAL VULVECTOMY 1991 -HYSTERECTOMY/BILATERAL SALPINGO-OOPHORECTOMY -CHOLECYSTECTOMY -RIGHT ANKLE FX/ORIF -VENTRAL HERNIA REPAIR -DENTAL EXTRACTIONS -TONSILLECTOMY/ADENOIDECTOMY ADDITIONAL PAST MEDICAL HISTORY: -NSTEMI -HAS BEEN REFERRED TO CARDIOVASCULAR SURGEON FOR BYPASS, BUT OPTED FOR CONSERVATIVE MANAGEMENT -DIFFUSE ASVD -PERIPHERAL ARTERY DISEASE WITH 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 0oz. 73.711937oo; 22.00 BMI Method:Stated General Appearance: No Apparent Distress, WD/WN Neck: Normal Inspection, Supple Respiratory: Lungs Clear, Normal Breath Sounds, No Accessory Muscle Use, No Respiratory Distress, Other (Tenderness over right lower posterior and anterior rib) Cardiovascular: Regular Rate, Rhythm, No Edema, No Gallop, No JVD, No Murmur Gastrointestinal: Normal Bowel Sounds, Non Tender, Soft Extremity: Normal Range of Motion Neurologic/Psychiatric: Alert, No Motor/Sensory Deficits Skin: Normal Color, Warm/Dry Progress/Results/Core Measures Suspected Sepsis SIRS Temperature: Pulse: Respiratory Rate: Blood Pressure / Mean: Results/Orders My Orders Orders - JOSAFAT PRADO APRN Ribs/Unilateral With Chest (06/10/22 11:53) Vital Signs/I&O 06/10/22 06/10/22 11:50 14:00 Temp 37.0 37.0 Pulse 63 63 Resp 16 16 B/P (MAP) 135/61 (85) 135/61 Pulse Ox 97 97 O2 Delivery Room Air Room Air Capillary Refill : Progress Note : Time: 11:58 Progress Note Patient seen and evaluated, resting comfortably, no acute distress. Based on exam and symptoms, work-up initially including right rib x-ray and chest x-ray. 1342 x-ray reviewed. No acute rib fracture, no pneumonia. Results discussed with patient. Offered an incentive spirometer in case she has a rib fracture that did not appear on the x-ray. Patient declined, stating that she just wants to go home. Discharge instructions and return precautions provided. Diagnostic Imaging Diagonstic Imaging: Xray Plain Films/CT/US/NM/MRI: chest, other (right ribs) Comments [facility], [place] NAME: EUGENIO PARKER [facility] REC#: [id number] PT STATUS: DEP ER : 1945 PHYSICIAN: JOSAFAT PRADO APRN ADMIT DATE: 06/10/22/ER Signed Date of Exam:06/10/22 RIBS/UNILATERAL WITH CHEST PA chest and right ribs at 1215 hours. Indication: Right rib pain Single PA view of the chest and 3 views of the right ribs were obtained. The heart size is within normal limits and stable when compared to 12/29/2020. The lungs are clear. There is no sign of failure, pneumonia or pleural effusion. There is no evidence for a pneumothorax either. The hiatal hernia and the slightly widened superior mediastinum on the right seen on the prior CT chest/abdomen pelvis exam of 07/12/2019 are again evident and no different. The images of the right ribs fail to show any sign of a displaced rib fracture. There is no acute bony abnormality noted otherwise. There is severe degenerative disease involving both glenohumeral joints. Impression: There is no evidence for an acute cardiopulmonary abnormality. There is no sign of a displaced rib fracture on the right either. Dictated by: Dictated on workstation # [id number] Dict: 06/10/22 1315 Trans: 06/11/22 0803 CV [id number] Interpreted by: KADEEM CREWS MD Electronically signed by: KADEEM CREWS MD 06/11/2203 Departure Impression Primary Impression: Rib pain Disposition: HOME, SELF-CARE Condition: Stable Departure-Patient Inst. Decision time for Depature: 13:45 Referrals: MARIA ESTHER SABILLON DO (PCP/Family) Primary Care Physician Patient Instructions: Bruised Rib (DC) Add. Discharge Instructions: You refused the incentive spirometer. You need to practice deep breathing and forceful coughing to prevent pneumonia. Take your pain medication as prescribed. Splint by holding a pillow against your ribs when coughing and taking deep breaths to minimize pain. Return for worsening shortness of breath, uncontrolled pain, or any other new, concerning, or worsening symptoms. All discharge instructions reviewed with patient and/or family. Voiced understanding. JOSAFAT PRADO APRN Jun 10, 2022 11:55
--- NOTE | 2022-06-10 13:23 | Diagnostic Imaging Report ---
PA chest and right ribs at 1215 hours. Indication: Right rib pain Single PA view of the chest and 3 views of the right ribs were obtained. The heart size is within normal limits and stable when compared to 12/29/2020. The lungs are clear. There is no sign of failure, pneumonia or pleural effusion. There is no evidence for a pneumothorax either. The hiatal hernia and the slightly widened superior mediastinum on the right seen on the prior CT chest/abdomen pelvis exam of 07/12/2019 are again evident and no different. The images of the right ribs fail to show any sign of a displaced rib fracture. There is no acute bony abnormality noted otherwise. There is severe degenerative disease involving both glenohumeral joints. Impression: There is no evidence for an acute cardiopulmonary abnormality. There is no sign of a displaced rib fracture on the right either. Dictated by: Dictated on workstation # [id number]
[2022-06-10 14:00] VITALS: BP 135/61
== END 2022-06-10 14:05 | disposition home or self-care (01) ==
LOC: EDUNIT# 11:24 → ER 11:26
DX: R07.81 Pleurodynia (principal); X50.1XXA Overexertion from prolonged static or awkward postures, initial encounter
CPT/HCPCS: 71101

== ENCOUNTER 2022-07-16 16:33 | Observation (INO) | payer MEDICARE, MEDICAID ==
[2022-07-16] VITALS (7 sets, daily range): BP systolic 134–203; BP diastolic 72–97
[~2022-07-16] VITALS: Ht 146 cm; Wt 47.2 kg
[2022-07-16 17:17] LABS: BASOPHILS % (AUTO) 0 % (0-10); EOSINOPHILS % (AUTO) 0 % (0-10); HEMATOCRIT 36 % (35-52); LYMPHOCYTES # (AUTO) 1.6 10^3/uL (1.0-4.0); LYMPHOCYTES % (AUTO) 12 % (12-44); MEAN CORPUSCULAR HEMOGLOBIN 28 pg (25-34); MEAN CORPUSCULAR HGB CONC 30 g/dL (32-36); MEAN CORPUSCULAR VOLUME 93 fL (80-99); MEAN PLATELET VOLUME 11.6 fL (9.0-12.2); MONOCYTES # (AUTO) 0.3 10^3/uL (0.0-1.0); MONOCYTES % (AUTO) 2 % (0-12); NEUTROPHILS # (AUTO) 11.2 10^3/uL (1.8-7.8); NEUTROPHILS % (AUTO) 85 % (42-75); PLATELET COUNT 233 10^3/uL (130-400); WHITE BLOOD COUNT 13.2 10^3/uL (4.3-11.0)
[2022-07-16 17:20] LABS: ALBUMIN 3.5 GM/DL (3.2-4.5); CHLORIDE 113 MMOL/L (98-107); POTASSIUM 4.6 MMOL/L (3.6-5.0); SODIUM 141 MMOL/L (135-145)
[2022-07-16 17:22] LABS: CALCIUM 8.8 MG/DL (8.5-10.1)
[2022-07-16 17:23] LABS: GLUCOSE 152 MG/DL (70-105); TOTAL PROTEIN 5.6 GM/DL (6.4-8.2)
[2022-07-16 17:24] LABS: CARBON DIOXIDE 15 MMOL/L (21-32)
[2022-07-16 17:25] LABS: BILIRUBIN,TOTAL 0.4 MG/DL (0.1-1.0)
[2022-07-16 17:26] LABS: ALKALINE PHOSPHATASE 60 U/L (40-136); CREATININE SERUM 1.64 MG/DL (0.60-1.30); GFR ESTIMATED 32
[2022-07-16 17:28] LABS: BUN/CREATININE RATIO 18
[2022-07-16 17:29] LABS: ALANINE AMINOTRANSFERASE < 6 U/L (0-55); MAGNESIUM 1.8 MG/DL (1.6-2.4)
--- NOTE | 2022-07-16 17:29 | Diagnostic Imaging Report ---
Indication: Shortness of breath and chest pain. Time of Exam: 5:26 PM Correlation is made with prior chest 12/29/2020. Heart size is stable. Lungs are clear. No infiltrates are detected. No effusion or pneumothorax is detected. Impression: No acute cardiopulmonary process is detected. Dictated by: Dictated on workstation # [id number]
--- NOTE | 2022-07-16 17:46 | ED Chest Pain ---
General Chief Complaint: Cardiac/General Problems Nursing Triage Note: PT TO ED BY EMS WITH C/O SOB AND CP RADIATING TO L JAW BEGINNING AROUND NOON TODAY. SUDDEN ONSET CP WHILE WATCHING TV. 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 PT GIVEN 324 ASA EN ROUTE. Source: patient, EMS, old records Exam Limitations: no limitations History of Present Illness Date Seen by Provider: Jul 16, 2022 Time Seen by Provider: 17:11 Initial Comments This is 77-year-old woman presents to the emergency room via EMS with complaints of pain that started in her left jaw and then also presented in her left chest starting around 11:00 or noon. She took nitroglycerin 4 or 5 times with improvement briefly with each dose. She reports her pain presently in the jaw has reduced from 7/10 down to 2/10. Her chest pressure was 4/10 but is now gone. She last had a heart cath in 2019 with stent placement. 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 Olvera. She takes Eliquis although she seems confused about whether it is once daily or twice daily. It is unclear why she takes Eliquis. She denies history of atrial fibrillation. She reports discontinuing Plavix because she is concerned about excessive bleeding. She does seem to bruise very easily based on her exam. Patient is alert and oriented and in no acute distress. She received aspirin 324 mg by EMS. Allergies and Home Medications Allergies Coded Allergies: No Known Drug Allergies (Verified , 06/10/22) Patient Home Medication List Home Medication List Reviewed: Yes Amlodipine Besylate (Amlodipine Besylate) 5 Mg Tablet, 5 MG PO DAILY Prescribed by: SERINA DEL REAL on 07/12/20 1116 Apixaban (Eliquis) 2.5 Mg Tablet, 2.5 MG PO BID, (Reported) Entered as Reported by: KETURAH FLORES on 01/24/20 1422 Aspirin (Aspirin EC) 81 Mg Tablet., 81 MG PO DAILY Prescribed by: SERINA DEL REAL on 07/12/20 1116 Cholecalciferol (Vitamin D3) (Vitamin D3) 25 Mcg Tablet, 25 MCG PO DAILY, (Reported) Entered as Reported by: MARIA ESTHER CATALAN on 07/11/20 1120 Clopidogrel Bisulfate (Clopidogrel) 75 Mg Tablet, 75 MG PO DAILY Prescribed by: SERINA DEL REAL on 07/12/20 1116 Hydrocodone/Acetaminophen (Hydrocodone-Acetamin 5-325 mg) 1 Each Tablet, 1 EA PO TID PRN for PAIN-MODERATE (5-7), (Reported) Entered as Reported by: MARIA ESTHER CATALAN on 10/19/19 1508 Hydroxychloroquine Sulfate (Plaquenil) 200 Mg Tablet, 200 MG PO DAILY, (Reported) Entered as Reported by: NABIL RAMIREZ on 09/21/21 1323 Metoprolol Succinate (Metoprolol Succinate) 100 Mg Tab.er.24h, 100 MG PO DAILY, (Reported) Entered as Reported by: KETURAH FLORES on 01/24/20 1422 Multivitamin (Multivitamin) 1 Each Tablet, 1 EACH PO DAILY, (Reported) Entered as Reported by: MARIA ESTHER CATALAN on 07/11/20 1120 Nitroglycerin (Nitroglycerin) 0.4 Mg Tab.subl, 0.4 MG PO UD PRN for CHEST PAIN (ANGINA), (Reported) Entered as Reported by: MARIA ESTHER CATALAN on 07/11/20 1120 Prednisone (Prednisone) 10 Mg Tab, 10 MG PO DAILY, (Reported) Entered as Reported by: MIGUEL ANGEL BERMUDEZ on 07/16/18 0834 Vilazodone Hydrochloride (Viibryd) 20 Mg Tablet, 20 MG PO DAILY, (Reported) Entered as Reported by: DAI MOJICA on 10/30/182024 Review of Systems Review of Systems Constitutional: no symptoms reported EENTM: See HPI Respiratory: No Symptoms Reported Cardiovascular: See HPI Gastrointestinal: No Symptoms Reported Genitourinary: No Symptoms Reported Musculoskeletal: no symptoms reported Skin: no symptoms reported Psychiatric/Neurological: No Symptoms Reported Endocrine: No Symptoms Reported Past Ihjudnc-Inrjgc-Afvtvl Hx Patient Social History Tobacco Use?: Yes Tobacco type used: Cigarettes Smoking Status: Current Everyday Smoker Use of E-Cig and/or Vaping dev: No Substance use?: No Alcohol Use?: Yes Pt feels they are or have been: No Immunizations Up To Date Tetanus Booster (TDap): Less than 5yrs PED Vaccines UTD: No Influenza Vaccine Up-to-Date: Yes; Up-to-Date First/Initial COVID19 Vaccinat: X3 Second COVID19 Vaccination Rod: X3 Third COVID19 Vaccination Date: RECEIVED, UNK WHEN Seasonal Allergies Seasonal Allergies: No Past Medical History Surgery/Hospitalization HX: LUPUS, HTN, [place], STROKE, ARTHRITIS CARDIAC STENT Surgeries: Yes (MODIFIED RADICAL VULVECTOMY 1991/CHOLECYSTECTOMY;CARDIAC CATHS- STENT X 1) Abdominal, Adenoidectomy, Cardiac, Coronary Stent, Gallbladder, Hysterectomy, Oophorectomy, Orthopedic, Tonsillectomy Respiratory: Yes (REFUSES TO WEAR CPAP) Pneumonia, Sleep Apnea Currently Using CPAP: No Currently Using BIPAP: No Cardiac: Yes (HX AORTIC/RENAL ART THROMBUS;GANGRENE/TOES;V- TACH;BRADYCARDIA;ASVD) Coronary Artery Disease, Heart Attack, High Cholesterol, Hypertension, Irregular Heartbeat Neurological: Yes (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) Neuropathy, Stroke, TIA 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 Disorders: Yes (HX OF CERVICAL AND VULVAR CA--MODIFIED RADICAL VULVECTOMY 1991;HYST/BSO) 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 Disorders: Denies 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, 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 Sexually Transmitted Disease: No HIV/AIDS: No Genitourinary: Yes (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) Bladder Infection, Renal Failure Gastrointestinal: Yes (S/P CHOLECYSTECTOMY) Gastroesophageal Reflux, Chronic Diarrhea, Hiatal Hernia, Gall Bladder Disease Musculoskeletal: Yes (GANGRENE OF TOES-TX WITH ANTIBIOTICS; ISCHEMIC FOOT ULCER) Arthritis, Fibromyalgia Endocrine: Yes Lupus HEENT: No Loss of Vision: Left Hearing Impairment: Denies Cancer: Yes Cervical, Vaginal Did You Recieve Any Treatments: Yes What Type of Treatment Did You: Chemotherapy, Radiation, Surgical Intervention Psychosocial: Yes Anxiety Integumentary: Yes (History of "gangrene" of the toes.; ISCHEMIC FOOT ULCER) Blood Disorders: No Adverse Reaction/Blood Tranf: No Family Medical History Arthritis 19 FATHER 19 MOTHER Cardiovascular disease 19 MOTHER Completed stroke 19 MOTHER maternal grandmother Congenital heart disease 19 MOTHER Diabetes mellitus 19 MOTHER maternal grandmother Hypercholesterolemia 19 MOTHER maternal grandmother Hypertension 19 MOTHER maternal grandmother Myocardial infarction maternal grandmother Tuberculosis paternal great grandfather No Pertinent Family Hx PAST SURGICAL HISTORY: -CARDIAC CATHS-STENT X 1 TO CIRCUMFLEX 09/2019 -MODIFIED RADICAL VULVECTOMY 1991 -HYSTERECTOMY/BILATERAL SALPINGO-OOPHORECTOMY -CHOLECYSTECTOMY -RIGHT ANKLE FX/ORIF -VENTRAL HERNIA REPAIR -DENTAL EXTRACTIONS -TONSILLECTOMY/ADENOIDECTOMY ADDITIONAL PAST MEDICAL HISTORY: -NSTEMI -HAS BEEN REFERRED TO CARDIOVASCULAR SURGEON FOR BYPASS, BUT OPTED FOR CONSERVATIVE MANAGEMENT -DIFFUSE ASVD -PERIPHERAL ARTERY DISEASE WITH ISCHEMIC FOOT ULCER IN PAST -RIGHT RENAL ARTERY THROMBUS--NO SURGICAL TREATMENT -BRADYCARDIA--VENTRICULAR TACHYCARDIA -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 0oz. 73.453973vo; 22.00 BMI Method:Stated General Appearance: No Apparent Distress, WD/WN HEENT: PERRL/EOMI, Normal ENT Inspection, Pharynx Normal (Dentures), Other (Left mandible mildly tender) Neck: Normal Inspection; No JVD Respiratory: Lungs Clear, Normal Breath Sounds, No Accessory Muscle Use, No Respiratory Distress, Other (Anterior chest wall tender to palpation) Cardiovascular: No Edema, No Murmur, Bradycardia (Regular) Gastrointestinal: Non Tender, Soft Extremity: Normal Inspection, No Pedal Edema Neurologic/Psychiatric: Alert, Oriented x3, No Motor/Sensory Deficits, Normal Mood/Affect Skin: Warm/Dry, Ecchymosis (Significant scattered bruising) Progress/Results/Core Measures Results/Orders Lab Results Laboratory Tests Test 07/16/22 16:42 07/16/22 18:56 Range/Units White Blood Count 13.2 H 4.3-11.0 10^3/uL Red Blood Count 3.93 3.80-5.11 10^6/uL Hemoglobin 11.0 L 11.5-16.0 g/dL Hematocrit 36 35-52 % Mean Corpuscular Volume 93 80-99 fL Mean Corpuscular Hemoglobin 28 25-34 pg Mean Corpuscular Hemoglobin Concent 30 L 32-36 g/dL Red Cell Distribution Width 15.9 H 10.0-14.5 % Platelet Count 233 130-400 10^3/uL Mean Platelet Volume 11.6 9.0-12.2 fL Immature Granulocyte % (Auto) 1 % Neutrophils (%) (Auto) 85 H 42-75 % Lymphocytes (%) (Auto) 12 12-44 % Monocytes (%) (Auto) 2 0-12 % Eosinophils (%) (Auto) 0 0-10 % Basophils (%) (Auto) 0 0-10 % Neutrophils # (Auto) 11.2 H 1.8-7.8 10^3/uL Lymphocytes # (Auto) 1.6 1.0-4.0 10^3/uL Monocytes # (Auto) 0.3 0.0-1.0 10^3/uL Eosinophils # (Auto) 0.0 0.0-0.3 10^3/uL Basophils # (Auto) 0.0 0.0-0.1 10^3/uL Immature Granulocyte # (Auto) 0.1 0.0-0.1 10^3/uL Prothrombin Time 14.0 12.2-14.7 SEC INR Comment 1.0 0.8-1.4 Activated Partial Thromboplast Time 20 L 24-35 SEC Sodium Level 141 135-145 MMOL/L Potassium Level 4.6 3.6-5.0 MMOL/L Chloride Level 113 H 98-107 MMOL/L Carbon Dioxide Level 15 L 21-32 MMOL/L Anion Gap 13 5-14 MMOL/L Blood Urea Nitrogen 29 H 7-18 MG/DL Creatinine 1.64 H 0.60-1.30 MG/DL Estimat Glomerular Filtration Rate 32 BUN/Creatinine Ratio 18 Glucose Level 152 H 70-105 MG/DL Calcium Level 8.8 8.5-10.1 MG/DL Corrected Calcium 9.2 8.5-10.1 MG/DL Magnesium Level 1.8 1.6-2.4 MG/DL Total Bilirubin 0.4 0.1-1.0 MG/DL Aspartate Amino Transf (AST/SGOT) 8 5-34 U/L Alanine Aminotransferase (ALT/SGPT) < 6 0-55 U/L Alkaline Phosphatase 60 40-136 U/L Myoglobin 55.8 10.0-92.0 NG/ML Troponin I 0.057 H <0.028 NG/ML C-Reactive Protein High Sensitivity 0.04 0.00-0.50 MG/DL Total Protein 5.6 L 6.4-8.2 GM/DL Albumin 3.5 3.2-4.5 GM/DL Urine Color YELLOW Urine Clarity CLEAR Urine pH 5.5 5-9 Urine Specific [place] 1.025 H 1.016-1.022 Urine Protein TRACE H NEGATIVE Urine Glucose (UA) NEGATIVE NEGATIVE Urine Ketones NEGATIVE NEGATIVE Urine Nitrite NEGATIVE NEGATIVE Urine Bilirubin NEGATIVE NEGATIVE Urine Urobilinogen 0.2 < = 1.0 MG/DL Urine Leukocyte Esterase NEGATIVE NEGATIVE Urine RBC (Auto) NEGATIVE NEGATIVE Urine RBC RARE /HPF Urine WBC NONE /HPF Urine Squamous Epithelial Cells 5-10 /HPF Urine Crystals PRESENT H /LPF Urine Amorphous Sediment RARE IJEOMA URATES H /LPF Urine Bacteria TRACE /HPF Urine Casts NONE /LPF Urine Mucus NEGATIVE /LPF Urine Culture Indicated NO My Orders Orders - HENRY ROSE MD Ekg Tracing (07/16/22 16:36) Cbc With Automated Diff (07/16/22 17:11) Magnesium (07/16/22 17:11) Chest 1 View, Ap/Pa Only (07/16/22 17:11) Ekg Tracing (07/16/22 17:11) Comprehensive Metabolic Panel (07/16/22 17:11) Myoglobin Serum (07/16/22 17:11) Protime With Inr (07/16/22 17:11) Partial Thromboplastin Time (07/16/22 17:11) O2 (07/16/22 17:11) Monitor-Rhythm Ecg Trace Only (07/16/22 17:11) Lipid Panel (07/17/22 05:00) Ed Iv/Invasive Line Start (07/16/22 17:11) Troponin I [place] (07/16/22 17:11) Hs C Reactive Protein (07/16/22 18:45) Ua Culture If Indicated (07/16/22 18:45) Clopidogrel Tablet (Plavix Tablet) (07/16/22 19:30) Amlodipine Tablet (Norvasc Tablet) (07/16/22 19:30) Nitroglycerin Ointment (Nitrobid Ointme (07/16/22 19:30) Pantoprazole Tablet (Protonix Tablet) (07/16/22 19:30) Medications Given in ED Current Medications Medications Dose Ordered Sig/Kenneth Route Start Time Stop Time Status Last Admin Dose Admin Amlodipine Besylate 10 mg ONCE ONCE PO 07/16/22 19:30 07/16/22 19:31 DC 07/16/22 19:36 10 MG Clopidogrel Bisulfate 150 mg ONCE ONCE PO 07/16/22 19:30 07/16/22 19:31 DC 07/16/22 19:36 150 MG Nitroglycerin 0.5 inch ONCE ONCE TOP 07/16/22 19:30 07/16/22 19:31 DC 07/16/22 19:36 0.5 INCH Pantoprazole Sodium 40 mg ONCE ONCE PO 07/16/22 19:30 07/16/22 19:31 DC 07/16/22 19:36 40 MG Vital Signs/I&O 07/16/22 07/16/22 16:34 20:15 Temp 36.6 Pulse 47 51 Resp 18 18 B/P (MAP) 179/76 (110) 185/74 Pulse Ox 98 95 O2 Delivery Room Air Room Air 2 Blood Pressure Mean: 110 Progress Progress Note : Progress Note Patient was interviewed and examined. She has mixed presentation as she does seem to have some tenderness over her jaw and chest. However, upon review of labs, she does have an elevated troponin which would suggest NSTEMI in the context of her coronary artery disease and chest pain. She had received aspirin by EMS. Dr. Acosta, bakery team leader personnel interviewer and patient's primary bakery team leader, was consulted and recommended a loading dose of Plavix 150 mg now and 75 mg daily to follow. He also recommended continuing Eliquis. Protonix was recommended for GI prophylaxis in the context of these medications. For hypertension he recommended amlodipine 10 mg now and daily along with nitro paste 1/2 inch every 8 hours. Patient was admitted to the cardiac stepdown unit. Dr. Steve excepted admission as attending physician. Labs were reviewed in their entirety. CBC was remarkable for a mild elevation in WBC. This was followed by CRP which was normal. Urinalysis and chest x-ray showed no evidence of infection to explain l eukocytosis. EKG was reviewed and interpreted by me and showed sinus bradycardia without any evidence of ischemia. Initial ECG Impression Date: Jul 16, 2022 Initial ECG Impression Time: 16:37 Initial ECG Rate: 46 Initial ECG Rhythm: S.Leander Initial ECG Impression: Sinus Bradycardia Comment Sinus bradycardia with no ST elevation or depression. No abnormal intervals or axis deviation. Diagnostic Imaging Diagonstic Imaging: Xray Plain Films/CT/US/NM/MRI: chest Comments NAME: EUGEN[facility] REC#: [id number] PT STATUS: REG ER : 1945 PHYSICIAN: HENRY ROSE MD ADMIT DATE: 07/16/22/ER Signed Date of Exam:07/16/22 CHEST 1 VIEW, AP/PA ONLY Indication: Shortness of breath and chest pain. Time of Exam: 5:26 PM Correlation is made with prior chest 12/29/2020. Heart size is stable. Lungs are clear. No infiltrates are detected. No effusion or pneumothorax is detected. Impression: No acute cardiopulmonary process is detected. Dictated by: Dictated on workstation # [id number] Dict: 07/16/22 1726 Trans: 07/16/22 190 CVB [id number] Interpreted by: NARCISO VELASCO MD Electronically signed by: NARCISO VELASCO MD 07/16/221899 Departure Communication (Admissions) Time/Spoke to Admitting Phy: 19:20 Dr. Steve Time/Spoke to Consulting Phy: 19:15 Dr. Olvera Impression Primary Impression: NSTEMI (non-ST elevated myocardial infarction) Additional Impressions: Chest pain Qualified Codes: R07.9 - Chest pain, unspecified Hypertension Qualified Codes: I10 - Essential (primary) hypertension Disposition: ADMITTED INPATIENT Condition: Improved Admissions Decision to Admit Reason: Admit from ER (General) Decision to Admit/Date: Jul 16, 2022 Time/Decision to Admit Time: 19:15 Departure-Patient Inst. Referrals: MARIA ESTHER SABILLON DO (PCP/Family) Primary Care Physician Copy Copies To 1: MARIA ESTHER SABILLON JOSHUA T MD Jul 16, 2022 17:46
[2022-07-16 19:01] LABS: BILIRUBIN,URINE NEGATIVE (NEGATIVE); CLARITY,URINE CLEAR; COLOR,URINE YELLOW; GLUCOSE, URINE (UA) NEGATIVE (NEGATIVE); KETONES,URINE NEGATIVE (NEGATIVE); LEUKOCYTE ESTERASE ,URINE NEGATIVE (NEGATIVE); NITRITE,URINE NEGATIVE (NEGATIVE); PH,URINE 5.5 (5-9); PROTEIN,URINE TRACE (NEGATIVE)
[2022-07-16 19:10] LABS: AMORPHOUS SEDIMENT,UR RARE AMOR URATES /LPF; BACTERIA,URINE TRACE /HPF; RBC,URINE RARE /HPF
[2022-07-16] MEDS ORDERED: NITROGLYCERIN 2% OINT 1 GM UNIT DOSE PACKET TOP ONE (19:30)
[2022-07-16] MEDS ORDERED: PANTOPRAZOLE 40 MG (PROTONIX) TAB PO ONE (19:30)
[2022-07-16] MEDS ORDERED: amLODIPine 10 MG (NORVASC) TAB PO ONE (19:30)
[2022-07-16] MEDS ORDERED: CLOPIDOGREL 75 MG (PLAVIX) TABLET PO ONE (19:30)
[2022-07-16] MEDS ORDERED: morphine INJ 4 MG/ML 1 ML (VIAL/SYRINGE) IV PRN (21:45)
[2022-07-16] MEDS ORDERED: ONDANSETRON 4 MG/2 ML (SDV) Z0FRAN IVP PRN (21:45)
[2022-07-16] MEDS: APIXABAN 2.5 MG (ELIQUIS) TABLET PO SCH (21:55)
[2022-07-16] MEDS: NITROGLYCERIN 2% OINT 1 GM UNIT DOSE PACKET TOP SCH (21:55)
[2022-07-16] MEDS: CATHETER FLUSH 10 ML SYR IVP SCH (23:47)
[2022-07-17] VITALS (17 sets, daily range): BP systolic 136–187; BP diastolic 69–88
[2022-07-17] MEDS ORDERED: ACETAMINOPHEN 325 MG TABLET ONE (04:38)
[2022-07-17] MEDS: ACETAMINOPHEN 325 MG TABLET PO PRN ×2 (04:39→08:34)
[2022-07-17] MEDS: NITROGLYCERIN 2% OINT 1 GM UNIT DOSE PACKET TOP SCH (06:06)
[2022-07-17] MEDS: CATHETER FLUSH 10 ML SYR IVP SCH ×3 (06:06→19:38)
--- NOTE | 2022-07-17 07:45 | Consultation-Cardiology ---
HPI-Cardiology Cardiology Consultation: Date of Consultation 07/17/22 Time Seen by a Provider: 08:10 Date of Admission 07-16-22 Attending Physician Maria Esther Us DO Admitting Physician Admitting Physician: Graciela Steve MD Attending Physician: Graciela Steve MD Consulting Physician Loly Olvera MD HPI: Chief Complaint: NSTEMI Ms. Parker is a 77 yr old female admitted to 510 from the ED with c/o left sided jaw pain and chest pressure. She reports she has had increasing MILAN for the last few weeks. She states yesterday she was sitting watching television when she developed left sided jaw pain and mid-sternal chest pressure. She reports it was constant, but would becomes worse with movement. She reports worsening SOB. She denies any palpitations, synocpe, near syncope or LE swelliing. She reports she took 4-5 nitro sublingual at home throughout the day which would improve the chest pressure, but would not take it completely away. She reports she her pain was relieved in the ED and has not returned. She reports she has a DURAN this morning. She reports she has chronic bilat leg discomfort worse with ambulation and relieved with rest. She denies any n/v/d. No c/o fever or chills. She continues to smoke cigs. She is currently pain free. Review of Systems-Cardiology Review of Systems Constitutional: No chills, No fever; malaise Eyes: No vision change Ears/Nose/Throat: No epistaxis, No recent hearing loss, No ulcerations Respiratory: As described under HPI Cardiovascular: As described under HPI Gastrointestinal: As described under HPI Genitourinary: No dysuria, No hematuria Musculoskeletal: As describe under HPI, joint pain Skin: No rash on exposed areas, No ulcerations on exposed areas Psychiatric/Neurological: No anxiety, No depression, No seizure, No focal weakness, No syncope Hematologic: easy bruising VDR-Mjrzwl-Pgglap Hx Patient Social History Smoking Status: Current Everyday Smoker 2nd Hand Smoke Exposure: Yes Have you traveled recently?: No Alcohol Use?: Yes Pt feels they are or have been: No Tobacco type used: Cigarettes Immunizations Up To Date Tetanus Booster (TDap): Less than 5yrs Date of Pneumonia Vaccine: Feb 21, 2019 Date of Influenza Vaccine: Feb 11, 2020 Past Medical History PMH As described under Assessment. Family Medical History Family Medical History: She reports her son has CAD with placement of 2 stents in the past. She reports "all the women in my family have had strokes". Family History: Arthritis 19 FATHER 19 MOTHER Cardiovascular disease 19 MOTHER Completed stroke 19 MOTHER maternal grandmother Congenital heart disease 19 MOTHER Diabetes mellitus 19 MOTHER maternal grandmother Hypercholesterolemia 19 MOTHER maternal grandmother Hypertension 19 MOTHER maternal grandmother Myocardial infarction maternal grandmother Tuberculosis paternal great grandfather Allergies and Home Medications Allergies Coded Allergies: No Known Drug Allergies (Verified , 06/10/22) Patient Home Medication List Apixaban (Eliquis) 2.5 Mg Tablet, 2.5 MG PO BID, (Reported) Entered as Reported by: KETURAH FLORES on 01/24/20 1422 Last Action: Reviewed Hydrocodone/Acetaminophen (Hydrocodone-Acetamin 7.5-325) 7.5 Mg-325 Mg Tablet, 1 EACH PO TID PRN for PAIN-MODERATE (5-7), (Reported) Entered as Reported by: MARIA ESTHER CATALAN on 07/17/22 1453 Last Action: Continued Nitroglycerin (Nitroglycerin) 0.4 Mg Tab.subl, 0.4 MG PO UD PRN for CHEST PAIN (ANGINA), (Reported) Entered as Reported by: MARIA ESTHER CATALAN on 07/11/20 1120 Last Action: Reviewed Prednisone (Prednisone) 10 Mg Tab, 10 MG PO DAILY, (Reported) Entered as Reported by: MIGUEL ANGEL BERMUDEZ on 07/16/18 0834 Last Action: Continued Vilazodone Hydrochloride (Viibryd) 40 Mg Tablet, 40 MG PO DAILY, (Reported) Entered as Reported by: MARIA ESTHER CATALAN on 07/17/22 1453 Last Action: Converted Discontinued Medications Amlodipine Besylate (Amlodipine Besylate) 5 Mg Tablet, 5 MG PO DAILY Discontinued Reason: No Longer Taking Prescribed by: SERINA DEL REAL on 07/12/20 1116 Last Action: Discontinued Aspirin (Aspirin EC) 81 Mg Tablet.dr, 81 MG PO DAILY Discontinued Reason: No Longer Taking Prescribed by: SERINA DEL REAL on 07/12/20 1116 Last Action: Discontinued Cholecalciferol (Vitamin D3) (Vitamin D3) 25 Mcg Tablet, 25 MCG PO DAILY, (Reported) Discontinued Reason: No Longer Taking Entered as Reported by: MARIA ESTHER CATALAN on 07/11/20 1120 Last Action: Discontinued Clopidogrel Bisulfate (Clopidogrel) 75 Mg Tablet, 75 MG PO DAILY Discontinued Reason: No Longer Taking Prescribed by: SERINA DEL REAL on 07/12/20 1116 Last Action: Discontinued Hydrocodone/Acetaminophen (Hydrocodone-Acetamin 5-325 mg) 1 Each Tablet, 1 EA PO TID PRN for PAIN-MODERATE (5-7), (Reported) Discontinued Reason: Duplicate Order Entered as Reported by: MARIA ESTHER CATALAN on 10/19/19 1508 Last Action: Discontinued Hydroxychloroquine Sulfate (Plaquenil) 200 Mg Tablet, 200 MG PO DAILY, (Reported) Discontinued Reason: No Longer Taking Entered as Reported by: NABIL RAMIREZ on 09/21/21 1323 Last Action: Discontinued Metoprolol Succinate (Metoprolol Succinate) 100 Mg Tab.er.24h, 100 MG PO DAILY, (Reported) Discontinued Reason: No Longer Taking Entered as Reported by: KETURAH FLORES on 01/24/20 1422 Last Action: Discontinued Multivitamin (Multivitamin) 1 Each Tablet, 1 EACH PO DAILY, (Reported) Discontinued Reason: No Longer Taking Entered as Reported by: MARIA ESTHER CATALAN on 07/11/20 1120 Last Action: Discontinued Vilazodone Hydrochloride (Viibryd) 20 Mg Tablet, 20 MG PO DAILY, (Reported) Discontinued Reason: Duplicate Order Entered as Reported by: DAI MOJICA on 10/30/182024 Last Action: Discontinued Physical Exam-Cardiology Physical Exam Vital Signs/I&O 07/19/22 07/19/22 07/19/22 07/19/22 00:03 01:15 03:47 07:00 Temp 36.3 36.8 Pulse 82 72 86 82 Resp 15 15 B/P (MAP) 158/89 (112) 169/93 (118) Pulse Ox 96 97 O2 Delivery Room Air Room Air 07/19/22 08:16 Temp 37.6 Pulse 74 Resp 16 B/P (MAP) 185/96 (125) Pulse Ox 93 O2 Delivery Room Air 07/19/22 00:00 Intake Total 620 ml Output Total 400 ml Balance 220 ml Capillary Refill : Less Than 3 Seconds Constitutional: AAO x 3, well-developed, other (frail) HEENT: PERRL, hearing is well preserved Neck: No carotid bruit; carotid pulses are 2 + bilaterally Respiratory: No accessory muscle use, No respiratory distress; chest expansion is symmetric, chest is bilaterally symmetric, other (scattered rhonchi; prolonged exp phase) Cardiovascular: bradycardia, S1 and S2 Gastrointestinal: No tender; soft, audible bowel sounds Extremities: no lower extremity edema bilateral Neurologic/Psychiatric: grossly intact (moves all extremities) Skin: other (fragile skin integrity with multiple bruises to arms, torso and l egs) Data Review Labs Laboratory Tests 07/18/22 08:50: White Blood Count 9.9, Red Blood Count 4.14, Hemoglobin 11.4L, Hematocrit 38, Mean Corpuscular Volume 93, Mean Corpuscular Hemoglobin 28, Mean Corpuscular Hemoglobin Concent 30L, Red Cell Distribution Width 16.2H, Platelet Count 230, Mean Platelet Volume 11.2, Sodium Level 142, Potassium Level 4.0, Chloride Level 112H, Carbon Dioxide Level 19L, Anion Gap 11, Blood Urea Nitrogen 25H, Creatinine 1.62H, Estimat Glomerular Filtration Rate 33, BUN/Creatinine Ratio 15, Glucose Level 113H, Calcium Level 8.3L, Magnesium Level 1.8 07/19/22 04:15: Sodium Level 143, Potassium Level 4.3, Chloride Level 114H, Carbon Dioxide Level 17L, Anion Gap 12, Blood Urea Nitrogen 24H, Creatinine 1.54H, Estimat Glomerular Filtration Rate 35, BUN/Creatinine Ratio 16, Glucose Level 96, Calcium Level 8.2L 07/19/22 06:19: White Blood Count 8.2, Red Blood Count 3.80, Hemoglobin 10.6L, Hematocrit 34L, Mean Corpuscular Volume 90, Mean Corpuscular Hemoglobin 28, Mean Corpuscular Hemoglobin Concent 31L, Red Cell Distribution Width 15.7H, Platelet Count 192, Mean Platelet Volume 11.3 Radiology NAME: EUGENIO PARKER [facility] REC#: [id number] PT STATUS: REG ER : 1945 PHYSICIAN: HENRY ROSE MD ADMIT DATE: 07/16/22/ER Signed Date of Exam:07/16/22 CHEST 1 VIEW, AP/PA ONLY Indication: Shortness of breath and chest pain. Time of Exam: 5:26 PM Correlation is made with prior chest 12/29/2020. Heart size is stable. Lungs are clear. No infiltrates are detected. No effusion or pneumothorax is detected. Impression: No acute cardiopulmonary process is detected. Dictated by: Dictated on workstation # [id number] Dict: 07/16/22 1726 Trans: 07/16/221899 CVB [id number] Interpreted by: NARCISO VELASCO MD Electronically signed by: NARCISO VELASCO MD 07/16/221899 ECG Impression ECG Initial ECG Rhythm: Normal Sinus A/P-Cardiology Assessment/Admission Diagnosis NSTEMI CAD - Card cath of 10/19/19: 90% mid vessel stenosis of the mid to distal left circumflex artery and 90% stenosis of the posterolateral system of the right coronary. The rest of the coronary arteries exhibit diffuse moderate disease and heavy coronary calcification. S/P successful stenting of the mid to distal left circumflex with Resolute 2.25 x 14 mm stent. 90% stenosis of the distal posterior lateral of the RCA where the vessel is of relatively small caliber. - MPI of 07-11-20 showed no evidence of any signif ischemia or infarction. LVEF 54% - Echo of 07-11-20 showed LVEF 60-65%. Grade 1 diastolic dysfunction. Mod mitral valve regurg with mild calcification. PASP 35-40 mmHg CKD 4 - Appears stable after cath of 10/19/19 Hypertension CVA with L homonymous hemianopsia - small to moderate-sized area of acute/subacute infarct involving the right occipital lobe. There is no evidence of intra-cranial hemorrhage, brain herniation, or midline shift on CT of the head on 07-15-18. Management of CVA is by her pcp Carotid artery disease - carotid u/s of 07-15-18, there is mod bilat carotid arterial plaque, worse (50- 70% stenosis) on the right H/O Ischemic cardiomyopathy - (see echo report above) PAF - Intolerant to warfarin due to wide variations in INR - Currently on apixaban Oncology - H/O cervical cancer for which she has undergone chemo (last tx 12 years ago) H/O sleep apnea - non-compliant with CPAP tx HLD - statin tx followed by her PCP H/O sinus bradycardia and V-tach during ED visit in November 2017 - transferred to [facility] at that time Chronic diarrhea - managed by PCP Leg swelling - Reports chronic lymphedema of the right leg Leg discomfort - Bilat foot paresthesias due to peripheral neuropathy Depression - manged by PCP H/o lupus and gout - (details unknown) followed and treated by pcp Family h/o CAD - (son has had coronary stenting; mother has had CVA) Discussion and Recomendations NSTEMI - advise cardiac cath. We have discussed the procedure, risks, benefits and potential complications of cardiac cath including risk of contrast nephropathy in the presence of existing CKD. She verbalizes understanding and wishes to proceed. We will proceed later today or sooner if indicated - we will hydrate pre and post procedure with IVF - monitor lab closely - continue Plavix - hold Eliquis for now d/t planned cardiac cath - resume following procedure - not suitable candidate for BB d/t existing bradycardia - echocardiogram today HTN - continue Norvasc (not suitable for BB for reasons above, not suitable for SELENE/ARB d/t CKD) Monitor lab closely Further recs will be based on her hospital course We would like to thank medical services for this consult Clinical Quality Measures AMI/AHF: ASA po Prior to arrival: TATY Dickey Jul 17, 2022 07:45
[2022-07-17] MEDS ORDERED: LIDOCAINE 1% INJ 20 ML VIAL ONE ×2 (08:29→12:17)
[2022-07-17] MEDS ORDERED: HEParin (CATH LAB) 2,000 ML IV ONE (08:30)
[2022-07-17] MEDS ORDERED: NS IV 1000 ML 0 ML ONE (08:30)
[2022-07-17] MEDS: APIXABAN 2.5 MG (ELIQUIS) TABLET PO SCH (08:32)
[2022-07-17] MEDS: ASPIRIN E.C. 81 MG (ECOTRIN) TAB PO SCH (08:32)
[2022-07-17] MEDS: CLOPIDOGREL 75 MG (PLAVIX) TABLET PO SCH (08:33)
[2022-07-17] MEDS: PANTOPRAZOLE 40 MG (PROTONIX) TAB PO SCH (08:33)
[2022-07-17] MEDS ORDERED: ACETAMINOPHEN 500 MG TAB (TYLENOL) PO ONE (08:45)
[2022-07-17] MEDS ORDERED: NS IV 1000 ML 1,000 ML IV SCH (08:45)
[2022-07-17 08:48] LABS: BASOPHILS % (AUTO) 0 % (0-10); EOSINOPHILS # (AUTO) 0.1 10^3/uL (0.0-0.3); EOSINOPHILS % (AUTO) 1 % (0-10); HEMATOCRIT 37 % (35-52); HEMOGLOBIN 11.2 g/dL (11.5-16.0); LYMPHOCYTES # (AUTO) 3.6 10^3/uL (1.0-4.0); LYMPHOCYTES % (AUTO) 29 % (12-44); MEAN CORPUSCULAR HEMOGLOBIN 28 pg (25-34); MEAN CORPUSCULAR HGB CONC 31 g/dL (32-36); MEAN CORPUSCULAR VOLUME 92 fL (80-99); MEAN PLATELET VOLUME 11.6 fL (9.0-12.2); MONOCYTES # (AUTO) 0.8 10^3/uL (0.0-1.0); MONOCYTES % (AUTO) 7 % (0-12); NEUTROPHILS # (AUTO) 7.6 10^3/uL (1.8-7.8); NEUTROPHILS % (AUTO) 62 % (42-75); PLATELET COUNT 231 10^3/uL (130-400); WHITE BLOOD COUNT 12.2 10^3/uL (4.3-11.0)
[2022-07-17 08:53] LABS: CALCIUM 8.7 MG/DL (8.5-10.1); CREATININE SERUM 1.69 MG/DL (0.60-1.30); POTASSIUM 4.4 MMOL/L (3.6-5.0)
--- NOTE | 2022-07-17 09:13 | Consultation-Cardiology ---
HPI-Cardiology Cardiology Consultation: Date of Consultation 07/17/22 Time Seen by a Provider: 08:30 Date of Admission Attending Physician Maria Esther Us DO Admitting Physician Admitting Physician: Graciela Steve MD Attending Physician: Graciela Steve MD Consulting Physician DIMITRI WHITTEN MD, MA, FACP, FACC, FSCAI, CCDS HPI: Chief Complaint: Reason for Card consult: NSTEMI Ms. Taveras is a 77 yr old female admitted to [facility] from the ED with c/o left sided jaw pain and chest pressure. She reports she has had increasing MILAN for the last few weeks. She states yesterday she was sitting watching television when she developed left sided jaw pain and mid-sternal chest pressure. She reports it was constant, but would becomes worse with movement. She reports worsening SOB. She denies any palpitations, synocpe, near syncope or LE swelliing. She reports she took 4-5 nitro sublingual at home throughout the day which would improve the chest pressure, but would not take it completely away. She reports she her pain was relieved in the ED and has not returned. She reports she has a DURAN this morning. She reports she has chronic bilat leg discomfort worse with ambulation and relieved with rest. She denies any n/v/d. No c/o fever or chills. She continues to smoke cigs. She is currently pain free. Review of Systems-Cardiology Review of Systems Constitutional: No chills, No fever; malaise Eyes: No vision change Ears/Nose/Throat: No epistaxis, No recent hearing loss, No ulcerations Respiratory: As described under HPI Cardiovascular: As described under HPI Gastrointestinal: As described under HPI Genitourinary: No dysuria, No hematuria Musculoskeletal: As describe under HPI, joint pain Skin: No rash on exposed areas, No ulcerations on exposed areas Psychiatric/Neurological: No anxiety, No depression, No seizure, No focal weakness, No syncope Hematologic: easy bruising MOJ-Eoirzu-Exiyyc Hx Patient Social History Smoking Status: Current Everyday Smoker 2nd Hand Smoke Exposure: Yes Have you traveled recently?: No Alcohol Use?: Yes Pt feels they are or have been: No Tobacco type used: Cigarettes Immunizations Up To Date Tetanus Booster (TDap): Less than 5yrs Date of Pneumonia Vaccine: Feb 21, 2019 Date of Influenza Vaccine: Feb 11, 2020 Past Medical History PMH As described under Assessment. Family Medical History Family Medical History: She reports her son has CAD with placement of 2 stents in the past. She reports "all the women in my family have had strokes". Family History: Arthritis 19 FATHER 19 MOTHER Cardiovascular disease 19 MOTHER Completed stroke 19 MOTHER maternal grandmother Congenital heart disease 19 MOTHER Diabetes mellitus 19 MOTHER maternal grandmother Hypercholesterolemia 19 MOTHER maternal grandmother Hypertension 19 MOTHER maternal grandmother Myocardial infarction maternal grandmother Tuberculosis paternal great grandfather Allergies and Home Medications Allergies Coded Allergies: No Known Drug Allergies (Verified , 06/10/22) Patient Home Medication List Home Medication List Reviewed: Yes Amlodipine Besylate (Amlodipine Besylate) 5 Mg Tablet, 5 MG PO DAILY Prescribed by: SERINA DEL REAL on 07/12/20 111 Apixaban (Eliquis) 2.5 Mg Tablet, 2.5 MG PO BID, (Reported) Entered as Reported by: KETURAH FLORES on 01/24/20 1422 Aspirin (Aspirin EC) 81 Mg Tablet.dr, 81 MG PO DAILY Prescribed by: SERINA DEL REAL on 07/12/20 1116 Cholecalciferol (Vitamin D3) (Vitamin D3) 25 Mcg Tablet, 25 MCG PO DAILY, (Reported) Entered as Reported by: MARIA ESTHER CATALAN on 07/11/20 1120 Clopidogrel Bisulfate (Clopidogrel) 75 Mg Tablet, 75 MG PO DAILY Prescribed by: SERINA DEL REAL on 07/12/20 1116 Hydrocodone/Acetaminophen (Hydrocodone-Acetamin 5-325 mg) 1 Each Tablet, 1 EA PO TID PRN for PAIN-MODERATE (5-7), (Reported) Entered as Reported by: MARIA ESTHER CATALAN on 10/19/19 1508 Hydroxychloroquine Sulfate (Plaquenil) 200 Mg Tablet, 200 MG PO DAILY, (Reported) Entered as Reported by: NABIL RAMIREZ on 09/21/21 1323 Metoprolol Succinate (Metoprolol Succinate) 100 Mg Tab.er.24h, 100 MG PO DAILY, (Reported) Entered as Reported by: KETURAH FLORES on 01/24/20 1422 Multivitamin (Multivitamin) 1 Each Tablet, 1 EACH PO DAILY, (Reported) Entered as Reported by: MARIA ESTHER CATALAN on 07/11/20 1120 Nitroglycerin (Nitroglycerin) 0.4 Mg Tab.subl, 0.4 MG PO UD PRN for CHEST PAIN (ANGINA), (Reported) Entered as Reported by: MARIA ESTHER CATALAN on 07/11/20 1120 Prednisone (Prednisone) 10 Mg Tab, 10 MG PO DAILY, (Reported) Entered as Reported by: MIGUEL ANGEL BERMUDEZ on 07/16/18 0834 Vilazodone Hydrochloride (Viibryd) 20 Mg Tablet, 20 MG PO DAILY, (Reported) Entered as Reported by: DAI MOJICA on 10/30/182024 Physical Exam-Cardiology Physical Exam Vital Signs/I&O 07/16/22 07/16/22 07/16/22 07/16/22 21:15 21:24 21:33 22:00 Pulse 71 49 64 Resp 24 16 33 B/P (MAP) 188/83 (120) 166/73 (118) 155/72 (124) Pulse Ox 96 98 98 94 O2 Delivery Room Air Room Air Room Air Room Air 07/16/22 07/17/22 07/17/22 07/17/22 23:00 00:00 00:00 01:00 Temp 36.2 Pulse 50 62 61 Resp 14 17 B/P (MAP) 145/75 (107) 137/70 (119) Pulse Ox 97 96 O2 Delivery Room Air Room Air 07/17/22 07/17/22 07/17/22 07/17/22 04:00 04:00 07:20 08:00 Temp 36.4 36.3 Pulse 51 56 51 Resp 14 13 B/P (MAP) 169/88 (115) 187/81 (116) Pulse Ox 95 100 O2 Delivery Room Air Room Air 07/17/22 00:00 Intake Total 100 ml Balance 100 ml Capillary Refill : Less Than 3 Seconds Constitutional: AAO x 3, well-developed, other (frail) HEENT: PERRL, hearing is well preserved Neck: No carotid bruit; carotid pulses are 2 + bilaterally Respiratory: No accessory muscle use, No respiratory distress; chest expansion is symmetric, chest is bilaterally symmetric, other (scattered rhonchi; prolonged exp phase) Cardiovascular: bradycardia, S1 and S2 Gastrointestinal: No tender; soft, audible bowel sounds Extremities: no lower extremity edema bilateral Neurologic/Psychiatric: grossly intact (moves all extremities) Skin: other (fragile skin integrity with multiple bruises to arms, torso and legs) Data Review Labs Laboratory Tests 07/16/22 16:42: White Blood Count 13.2H, Red Blood Count 3.93, Hemoglobin 11.0L, Hematocrit 36, Mean Corpuscular Volume 93, Mean Corpuscular Hemoglobin 28, Mean Corpuscular Hem oglobin Concent 30L, Red Cell Distribution Width 15.9H, Platelet Count 233, Mean Platelet Volume 11.6, Immature Granulocyte % (Auto) 1, Neutrophils (%) (Auto) 85H, Lymphocytes (%) (Auto) 12, Monocytes (%) (Auto) 2, Eosinophils (%) (Auto) 0, Basophils (%) (Auto) 0, Neutrophils # (Auto) 11.2H, Lymphocytes # (Auto) 1.6, Monocytes # (Auto) 0.3, Eosinophils # (Auto) 0.0, Basophils # (Auto) 0.0, Immature Granulocyte # (Auto) 0.1, Prothrombin Time 14.0, INR Comment 1.0, Activated Partial Thromboplast Time 20L, Sodium Level 141, Potassium Level 4.6, Chloride Level 113H, Carbon Dioxide Level 15L, Anion Gap 13, Blood Urea Nitrogen 29H, Creatinine 1.64H, Estimat Glomerular Filtration Rate 32, BUN/Creatinine Ratio 18, Glucose Level 152H, Calcium Level 8.8, Corrected Calcium 9.2, Magnesium Level 1.8, Total Bilirubin 0.4, Aspartate Amino Transf (AST/SGOT) 8, Alanine Aminotransferase (ALT/SGPT) < 6, Alkaline Phosphatase 60, Myoglobin 55.8, Troponin I 0.057H, C-Reactive Protein High Sensitivity 0.04, Total Protein 5.6L, Albumin 3.5 07/16/22 18:56: Urine Color YELLOW, Urine Clarity CLEAR, Urine pH 5.5, Urine Specific Collins 1.025H, Urine Protein TRACEH, Urine Glucose (UA) NEGATIVE, Urine Ketones NEGATIVE, Urine Nitrite NEGATIVE, Urine Bilirubin NEGATIVE, Urine Urobilinogen 0.2, Urine Leukocyte Esterase NEGATIVE, Urine RBC (Auto) NEGATIVE, Urine RBC RARE, Urine WBC NONE, Urine Squamous Epithelial Cells 5-10, Urine Crystals PRESENTH, Urine Amorphous Sediment RARE IJEOMA URATESH, Urine Bacteria TRACE, Urine Casts NONE, Urine Mucus NEGATIVE, Urine Culture Indicated NO 07/17/22 04:24: White Blood Count 12.2H, Red Blood Count 3.98, Hemoglobin 11.2L, Hematocrit 37, Mean Corpuscular Volume 92, Mean Corpuscular Hemoglobin 28, Mean Corpuscular Hemoglobin Concent 31L, Red Cell Distribution Width 16.0H, Platelet Count 231, Mean Platelet Volume 11.6, Immature Granulocyte % (Auto) 1, Neutrophils (%) (Auto) 62, Lymphocytes (%) (Auto) 29, Monocytes (%) (Auto) 7, Eosinophils (%) (Auto) 1, Basophils (%) (Auto) 0, Neutrophils # (Auto) 7.6, Lymphocytes # (Auto) 3.6, Monocytes # (Auto) 0.8, Eosinophils # (Auto) 0.1, Basophils # (Auto) 0.0, Immature Granulocyte # (Auto) 0.1, Sodium Level 142, Potassium Level 4.4, Chloride Level 112H, Carbon Dioxide Level 22, Anion Gap 8, Blood Urea Nitrogen 34H, Creatinine 1.69H, Estimat Glomerular Filtration Rate 31, BUN/Creatinine Ratio 20, Glucose Level 81, Calcium Level 8.7, Troponin I 1.297*H A/P-Cardiology Assessment/Admission Diagnosis NSTEMI CAD - Card cath of 10/19/19: 90% mid vessel stenosis of the mid to distal left circumflex artery and 90% stenosis of the posterolateral system of the right coronary. The rest of the coronary arteries exhibit diffuse moderate disease and heavy coronary calcification. S/P successful stenting of the mid to distal left circumflex with Resolute 2.25 x 14 mm stent. 90% stenosis of the distal posterior lateral of the RCA where the vessel is of relatively small caliber. - MPI of 07-11-20 showed no evidence of any signif ischemia or infarction. LVEF 5 4% - Echo of 07-11-20 showed LVEF 60-65%. Grade 1 diastolic dysfunction. Mod mitral valve regurg with mild calcification. PASP 35-40 mmHg CKD 4 - Appears stable after cath of 10/19/19 Hypertension CVA with L homonymous hemianopsia - small to moderate-sized area of acute/subacute infarct involving the right occipital lobe. There is no evidence of intra-cranial hemorrhage, brain he rniation, or midline shift on CT of the head on 07-15-18. Management of CVA is by her pcp Carotid artery disease - carotid u/s of 4-24-19, there is mod bilat carotid arterial plaque, worse (50- 70% stenosis) on the right H/O Ischemic cardiomyopathy - (see echo report above) PAF - Intolerant to warfarin due to wide variations in INR - Currently on apixaban Oncology - H/O cervical cancer for which she has undergone chemo (last tx 12 years ago) H/O sleep apnea - non-compliant with CPAP tx HLD - statin tx followed by her PCP H/O sinus bradycardia and V-tach during ED visit in November 2017 - transferred to [facility] at that time Chronic diarrhea - managed by PCP Leg swelling - Reports chronic lymphedema of the right leg Leg discomfort - Bilat foot paresthesias due to peripheral neuropathy Depression - manged by PCP H/o lupus and gout - (details unknown) followed and treated by pcp Family h/o CAD - (son has had coronary stenting; mother has had CVA) Discussion and Recomendations NSTEMI - advise cardiac cath. We have discussed the procedure, risks, benefits and potential complications of cardiac cath including risk of contrast nephropathy in the presence of existing CKD. She verbalizes understanding and wishes to proceed. We will proceed later today or sooner if indicated - we will hydrate pre and post procedure with IVF - monitor lab closely - continue Plavix - hold Eliquis for now d/t planned cardiac cath - resume following procedure - not suitable candidate for BB d/t existing bradycardia - echocardiogram today HTN - continue Norvasc (not suitable for BB for reasons above, not suitable for SELENE/ARB d/t CKD) Monitor lab closely Further recs will be based on her hospital course We would like to thank medical services for this consult Clinical Quality Measures AMI/AHF: ASA po Prior to arrival: DIMITRI Hernandez MD FACP FAC CCDS Jul 17, 2022 09:13
--- NOTE | 2022-07-17 10:37 | History & Physical ---
HPI History of Present Illness: Yesterday around 11 her jaw was hurting and she was having trouble breathing. Denies dizziness, nausea, sweatiness. Admits chest pain. Denies cough. Denies fever. This morning states she's feeling better, not having pain, but still feels a little short of breath. Lives at [facility], uses a walker. 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 Source: patient Date seen by provider: Jul 17, 2022 Time Seen by Provider: 10:50 Attending Physician Sahil Us DO PCP Admitting Physician: Hernan Steve MD Attending Physician: Hernan Steve MD Consult Date of Admission Jul 16, 2022 at 20:21 Home Medications Home Medications Reviewed patient Home Medication Reconciliation performed by pharmacy medication reconciliations apartment maintenance technician and/or nursing. Patients Allergies have been reviewed. Allergies Coded Allergies: No Known Drug Allergies (Verified , 06/10/22) [id number] Hx Patient Social History Smoking Status: Current Everyday Smoker 2nd Hand Smoke Exposure: Yes Recent Hopitalizations: No Alcohol Use?: Yes Tobacco type used: Cigarettes Have you traveled recently?: No Immunizations Up To Date Tetanus Booster (TDap): Less than 5yrs Influenza Vaccine Up-to-Date: Yes; Up-to-Date First/Initial COVID19 Vaccinat: X3 Second COVID19 Vaccination Rod: X3 Third COVID19 Vaccination Date: RECEIVED, UNK WHEN Past Medical History PMHx: Atrial Fibrillation CAD with stenting PVD HTN Lupus Chronic kidney disease Stroke- right occipital, left eye peripheral vision loss Right renal artery thrombus Vulvar cancer Cervical cancer SurgHx: Cardiac catheterization Left hip replacement after fracture Vulvectomy for vulvar cancer Hysterectomy and bilateral salpingo-oophorectomy Cholecystectomy Tonsillectomy/adenoidectomy Hernia repair Right ankle fracture/ORIF Bilateral cataract removal Family Medical History Significant Family History: No Pertinent Family Hx, Heart Disease, Diabetes, Stroke Review of Systems (CHC) Constitutional: No fever EENTM: No nose congestion, No throat pain Respiratory: see HPI Cardiovascular: see HPI Gastrointestinal: No abdominal pain, No constipation; diarrhea (chronic); No melena, No nausea, No vomiting Genitourinary: No dysuria Musculoskeletal: joint pain (chronic) Skin: No rash Psychiatric/Neurological: Denies Anxiety, Denies Depressed Reviewed Test Results Reviewed Test Results Lab Laboratory Tests Test 07/16/22 16:42 07/16/22 18:56 07/17/22 04:24 Range/Units White Blood Count 13.2 H 12.2 H 4.3-11.0 10^3/uL Red Blood Count 3.93 3.98 3.80-5.11 10^6/uL Hemoglobin 11.0 L 11.2 L 11.5-16.0 g/dL Hematocrit 36 37 35-52 % Mean Corpuscular Volume 93 92 80-99 fL Mean Corpuscular Hemoglobin 28 28 25-34 pg Mean Corpuscular Hemoglobin Concent 30 L 31 L 32-36 g/dL Red Cell Distribution Width 15.9 H 16.0 H 10.0-14.5 % Platelet Count 233 231 130-400 10^3/uL Mean Platelet Volume 11.6 11.6 9.0-12.2 fL Immature Granulocyte % (Auto) 1 1 % Neutrophils (%) (Auto) 85 H 62 42-75 % Lymphocytes (%) (Auto) 12 29 12-44 % Monocytes (%) (Auto) 2 7 0-12 % Eosinophils (%) (Auto) 0 1 0-10 % Basophils (%) (Auto) 0 0 0-10 % Neutrophils # (Auto) 11.2 H 7.6 1.8-7.8 10^3/uL Lymphocytes # (Auto) 1.6 3.6 1.0-4.0 10^3/uL Monocytes # (Auto) 0.3 0.8 0.0-1.0 10^3/uL Eosinophils # (Auto) 0.0 0.1 0.0-0.3 10^3/uL Basophils # (Auto) 0.0 0.0 0.0-0.1 10^3/uL Immature Granulocyte # (Auto) 0.1 0.1 0.0-0.1 10^3/uL Prothrombin Time 14.0 12.2-14.7 SEC INR Comment 1.0 0.8-1.4 Activated Partial Thromboplast Time 20 L 24-35 SEC Sodium Level 141 142 135-145 MMOL/L Potassium Level 4.6 4.4 3.6-5.0 MMOL/L Chloride Level 113 H 112 H 98-107 MMOL/L Carbon Dioxide Level 15 L 22 21-32 MMOL/L Anion Gap 13 8 5-14 MMOL/L Blood Urea Nitrogen 29 H 34 H 7-18 MG/DL Creatinine 1.64 H 1.69 H 0.60-1.30 MG/DL Estimat Glomerular Filtration Rate 32 31 BUN/Creatinine Ratio 18 20 Glucose Level 152 H 81 70-105 MG/DL Calcium Level 8.8 8.7 8.5-10.1 MG/DL Corrected Calcium 9.2 8.5-10.1 MG/DL Magnesium Level 1.8 1.6-2.4 MG/DL Total Bilirubin 0.4 0.1-1.0 MG/DL Aspartate Amino Transf (AST/SGOT) 8 5-34 U/L Alanine Aminotransferase (ALT/SGPT) < 6 0-55 U/L Alkaline Phosphatase 60 40-136 U/L Myoglobin 55.8 10.0-92.0 NG/ML Troponin I 0.057 H 1.297 *H <0.028 NG/ML C-Reactive Protein High Sensitivity 0.04 0.00-0.50 MG/DL Total Protein 5.6 L 6.4-8.2 GM/DL Albumin 3.5 3.2-4.5 GM/DL Urine Color YELLOW Urine Clarity CLEAR Urine pH 5.5 5-9 Urine Specific [place] 1.025 H 1.016-1.022 Urine Protein TRACE H NEGATIVE Urine Glucose (UA) NEGATIVE NEGATIVE Urine Ketones NEGATIVE NEGATIVE Urine Nitrite NEGATIVE NEGATIVE Urine Bilirubin NEGATIVE NEGATIVE Urine Urobilinogen 0.2 < = 1.0 MG/DL Urine Leukocyte Esterase NEGATIVE NEGATIVE Urine RBC (Auto) NEGATIVE NEGATIVE Urine RBC RARE /HPF Urine WBC NONE /HPF Urine Squamous Epithelial Cells 5-10 /HPF Urine Crystals PRESENT H /LPF Urine Amorphous Sediment RARE IJEOMA URATES H /LPF Urine Bacteria TRACE /HPF Urine Casts NONE /LPF Urine Mucus NEGATIVE /LPF Urine Culture Indicated NO Radiology NAME: EUGENIO PARKER [facility] REC#: [id number] PT STATUS: REG ER : 1945 PHYSICIAN: HENRY ROSE MD ADMIT DATE: 07/16/22/ER Signed Date of Exam:07/16/22 CHEST 1 VIEW, AP/PA ONLY Indication: Shortness of breath and chest pain. Time of Exam: 5:26 PM Correlation is made with prior chest 12/29/2020. Heart size is stable. Lungs are clear. No infiltrates are detected. No effusion or pneumothorax is detected. Impression: No acute cardiopulmonary process is detected. Dictated by: Dictated on workstation # [id number] Dict: 07/16/221725 Trans: 07/16/221899 CVB [id number] Interpreted by: NARCISO VELASCO MD Electronically signed by: NARCISO VELASCO MD 07/16/221899 Physical Exam-(CHC) Physical Exam Vital Signs VS - Last 72 Hours, by Label 07/16/22 07/16/22 07/16/22 07/16/22 16:34 20:15 20:33 20:35 Temp 36.6 36.6 Pulse 47 51 53 48 Resp 18 18 13 B/P (MAP) 179/76 (110) 185/74 134/92 (110) Pulse Ox 98 95 98 O2 Delivery Room Air Room Air Room Air 07/16/22 07/16/22 07/16/22 07/16/22 20:45 21:00 21:15 21:24 Pulse 58 64 71 49 Resp 24 15 24 16 B/P (MAP) 195/84 (131) 203/97 (141) 188/83 (120) 166/73 (118) Pulse Ox 99 97 96 98 O2 Delivery Room Air Room Air Room Air Room Air 07/16/22 07/16/22 07/16/22 07/17/22 21:33 22:00 23:00 00:00 Temp 36.2 Pulse 64 50 Resp 33 14 B/P (MAP) 155/72 (124) 145/75 (107) Pulse Ox 98 94 97 O2 Delivery Room Air Room Air Room Air 07/17/22 07/17/22 07/17/22 07/17/22 00:00 01:00 04:00 04:00 Temp 36.4 Pulse 62 61 51 Resp 17 14 B/P (MAP) 137/70 (119) 169/88 (115) Pulse Ox 96 95 O2 Delivery Room Air Room Air 07/17/22 07/17/22 07/17/22 07/17/22 07:20 08:00 08:00 13:00 Temp 36.3 Pulse 56 51 50 Resp 13 B/P (MAP) 187/81 (116) 172/77 (112) Pulse Ox 97 100 90 O2 Delivery Room Air Room Air Room Air 07/17/22 07/17/22 07/17/22 07/17/22 13:00 13:15 13:30 13:45 Pulse 46 47 46 49 Resp 18 29 14 B/P (MAP) 177/86 (141) 172/78 (127) 147/70 (107) Pulse Ox 97 95 93 O2 Delivery Room Air Room Air Room Air 07/17/22 07/17/22 07/17/22 07/17/22 13:59 14:00 14:15 14:30 Pulse 47 50 49 Resp 14 14 14 B/P (MAP) 164/72 (116) 164/73 (131) 160/74 (119) Pulse Ox 95 95 97 94 O2 Delivery Room Air Room Air Room Air Room Air O2 Flow Rate 0.00 07/17/22 07/17/22 07/17/22 07/17/22 14:45 15:00 15:30 16:00 Pulse 50 52 48 58 Resp 15 14 21 13 B/P (MAP) 147/70 (110) 160/74 (102) 183/69 (107) 141/79 (99) Pulse Ox 96 95 97 97 O2 Delivery Room Air Room Air Room Air Room Air 07/17/22 07/17/22 17:01 18:00 Temp 36.1 Pulse 55 54 Resp 23 13 B/P (MAP) 141/79 (99) 137/72 (93) Pulse Ox 96 93 O2 Delivery Room Air Room Air Capillary Refill : Less Than 3 Seconds General Appearance: WD/WN, no apparent distress Respiratory: lungs clear, normal breath sounds Cardiovascular: regular rate, rhythm Gastrointestinal: normal bowel sounds, non tender, soft Extremities: no pedal edema Neurologic/Psychiatric: alert, normal mood/affect Skin: warm/dry Assessment/Plan Assessment/Plan Admission Status: Observation (1) NSTEMI (non-ST elevated myocardial infarction) Status: Acute Assessment & Plan: Cardiology consulted, plan for echo and cath today. Statin started, she doesn't recall why it was stopped in past. Continue aspirin, clopidogrel. (2) Hypertension Status: Chronic Assessment & Plan: Resume home medications. Qualifiers: Qualified Codes: I10 - Essential (primary) hypertension (3) Lupus (systemic lupus erythematosus) Status: Chronic (4) Atrial fibrillation Status: Chronic Assessment & Plan: Resume home apixaban when okay with Cardiology (5) History of stroke Status: Chronic (6) DVT prophylaxis Status: Acute Assessment & Plan: Apixaban Clinical Quality Measures AMI/AHF: ASA po Prior to arrival: HERNAN Tucker MD Jul 17, 2022 10:37
[2022-07-17] MEDS ORDERED: MIDAZOLAM 5 MG/5 ML (VERSED) VIAL ONE (11:27)
[2022-07-17] MEDS ORDERED: fentaNYL INJ 100 MCG/2 ML AMP ONE (11:27)
--- NOTE | 2022-07-17 13:27 | Cardiac Cath Report ---
CARDIAC CATHETERIZATION DATE OF PROCEDURE: 07-17-22 INDICATION: []. HISTORY: The patient is a 77 year old female with NSTEMI PROCEDURES PERFORMED: Attempted [facility] PROCEDURE DESCRIPTION: After informed consent and in the fasting state, left heart catheterization was attempted through R femoral and then L femoral arteries. Cannulation obtained on both sides but unable to advance wire into the abdominal aorta. No sheath advanced on either side. Manual pressure held IMPRESSION: Unsucessful attempts at left heart cath through the groin approach Consider radial artery approach after confirmation of adequate size with ultrasound DIMITRI WHITTEN MD FACP [facility] CCDS Jul 17, 2022 13:27
[2022-07-17] MEDS ORDERED: PATIENT MAY USE OWN MEDS, ALL PO SCH (13:30)
[2022-07-17] MEDS: NS IV 1000 ML 1,000 ML IV SCH (13:54)
[2022-07-17] MEDS ORDERED: VILA40TA PO (14:53)
[2022-07-17] MEDS ORDERED: HYDR-3817 PO (14:53)
[2022-07-18] VITALS (16 sets, daily range): BP systolic 116–202; BP diastolic 68–88
[2022-07-18] MEDS: NS IV 1000 ML 1,000 ML IV SCH ×2 (00:45→10:00)
[2022-07-18] MEDS: CATHETER FLUSH 10 ML SYR IVP SCH ×3 (05:31→22:00)
--- NOTE | 2022-07-18 08:29 | Progress Note ---
Subjective Subjective/Events-last exam Pt states she feels okay, denies symptoms at this time. No chest pain, shortness of breath. Cath was unable to be passed through groin arteries yesterday and she states they couldn't get labs drawn this morning. Objective Exam Last Set of Vital Signs Vital Signs Date Time Temp Pulse Resp B/P (MAP) Pulse Ox O2 Delivery O2 Flow Rate FiO2 07/18/22 07:44 36.8 67 18 202/88 (126) 94 Room Air 07/17/22 13:59 0.00 Capillary Refill : Greater Than 3 Seconds I&O Intake and Output 07/18/22 00:00 Intake Total 470 ml Balance 470 ml Intake Oral 470 ml # Voids 7 General: Alert, No Acute Distress Lungs: Clear to Auscultation, Normal Air Movement Heart: Regular Rate, No Murmurs Abdomen: Normal Bowel Sounds, Soft Extremities: No Edema Neuro: Normal Speech Psych/Mental Status: Mood NL Results/Procedures Radiology NAME: EUGENIO PARKER [facility] REC#: [id number] PT STATUS: REG ER : 1945 PHYSICIAN: HENRY ROSE MD ADMIT DATE: 07/16/22/ER Signed Date of Exam:07/16/22 CHEST 1 VIEW, AP/PA ONLY Indication: Shortness of breath and chest pain. Time of Exam: 5:26 PM Correlation is made with prior chest 12/29/2020. Heart size is stable. Lungs are clear. No infiltrates are detected. No effusion or pneumothorax is detected. Impression: No acute cardiopulmonary process is detected. Dictated by: Dictated on workstation # [id number] Dict: 07/16/226 Trans: 07/16/221899 CV [id number] Interpreted by: NARCISO VELASCO MD Electronically signed by: NARCISO VELASCO MD 07/16/221899 Assessment/Plan Assessment/Plan (1) NSTEMI (non-ST elevated myocardial infarction) Status: Acute Assessment & Plan: 07/18- Cardiology consulted, plan for echo and cath today. Statin started, she doesn't recall why it was stopped in past. Continue aspirin, clopidogrel. 07/19- unable to complete cath yesterday, defer to Cardiology plans (2) Hypertension Status: Chronic Assessment & Plan: Resume home medications. Qualifiers: Qualified Codes: I10 - Essential (primary) hypertension (3) Lupus (systemic lupus erythematosus) Status: Chronic (4) Atrial fibrillation Status: Chronic Assessment & Plan: Resume home apixaban when okay with Cardiology (5) History of stroke Status: Chronic (6) DVT prophylaxis Status: Acute Assessment & Plan: Apixaban Clinical Quality Measures AMI/AHF: ASA po Prior to arrival: HERNAN Tucker MD Jul 18, 2022 08:29
[2022-07-18] MEDS: predniSONE 10 MG TAB PO SCH (08:41)
[2022-07-18] MEDS: PANTOPRAZOLE 40 MG (PROTONIX) TAB PO SCH (08:41)
[2022-07-18] MEDS: CLOPIDOGREL 75 MG (PLAVIX) TABLET PO SCH (08:41)
[2022-07-18] MEDS: ASPIRIN E.C. 81 MG (ECOTRIN) TAB PO SCH (08:41)
[2022-07-18] MEDS: amLODIPine 10 MG (NORVASC) TAB PO SCH (08:41)
[2022-07-18] MEDS ORDERED: NON-FORMULARY MEDICATION 1 EA EA (Vilazodone Hydrochloride (Viibryd) 40 MG) PO SCH (09:00)
[2022-07-18 09:08] LABS: HEMATOCRIT 38 % (35-52); HEMOGLOBIN 11.4 g/dL (11.5-16.0); MEAN CORPUSCULAR HEMOGLOBIN 28 pg (25-34); MEAN CORPUSCULAR HGB CONC 30 g/dL (32-36); MEAN CORPUSCULAR VOLUME 93 fL (80-99); MEAN PLATELET VOLUME 11.2 fL (9.0-12.2); PLATELET COUNT 230 10^3/uL (130-400); WHITE BLOOD COUNT 9.9 10^3/uL (4.3-11.0)
[2022-07-18 09:30] LABS: CALCIUM 8.3 MG/DL (8.5-10.1)
[2022-07-18 09:35] LABS: CREATININE SERUM 1.62 MG/DL (0.60-1.30)
[2022-07-18 09:37] LABS: MAGNESIUM 1.8 MG/DL (1.6-2.4)
[2022-07-18] MEDS ORDERED: NS IV 1000 ML 0 ML ONE (09:56)
[2022-07-18] MEDS ORDERED: LIDOCAINE 1% INJ 20 ML VIAL ONE (09:56)
[2022-07-18] MEDS ORDERED: HEParin (CATH LAB) 2,000 ML IV ONE (09:56)
[2022-07-18] MEDS ORDERED: MIDAZOLAM 5 MG/5 ML (VERSED) VIAL ONE (11:24)
[2022-07-18] MEDS ORDERED: fentaNYL INJ 100 MCG/2 ML AMP ONE (11:24)
[2022-07-18] MEDS ORDERED: HEParin 1000 UNIT/ML (10ML VIAL) FOR BOLUS ONE (11:24)
[2022-07-18] MEDS ORDERED: VERAPAMIL 5 MG/2 ML (CALAN) VIAL IV ONE (11:24)
[2022-07-18] MEDS ORDERED: NITRO DRIP 25000 MCG/D5W 250 ML IV ONE (11:25)
[2022-07-18] MEDS ORDERED: LOPERAMIDE 2 MG (IMODIUM) TABLET PO PRN (12:45)
[2022-07-18] MEDS ORDERED: NS IV 1000 ML 1,000 ML IV SCH (13:00)
[2022-07-18] MEDS ORDERED: PATIENT MAY USE OWN MEDS, ALL PO SCH (13:00)
--- NOTE | 2022-07-18 13:08 | Cardiac Cath Report ---
CARDIAC CATHETERIZATION DATE OF PROCEDURE: 07/18/22 INDICATION: []. HISTORY: The patient is a 77 year old female with NSTEMI PROCEDURES PERFORMED: Attempted [facility] through R radial artery approach PROCEDURE DESCRIPTION: After informed consent and in the fasting state, R radial artery was accessed, 6F sheath introduced, treated with intra-arterial heparin and diltiazem per protocol, and wire advanced but unable to gain access to the ascending aorta despite support from a 5F JR4 (to direct the wire). This was due to marked tortuosity (two 90-degree turns in the R brachiocephalic artery) of the neck vessel and the origin of the R brachiocephalic from the aortic arch. Angiography of the R brachiocephalic performed, but still not able to advance wire to the ascending aorta IMPRESSION: Unsuccessful attempt at cardiac catheterization from the R radial artery appro ach, due to marked tortuosity of the R brachiocephalic arterial trunk. Previously (07-17-2022) unsuccessful R and L femoral arterial attempt at access. DIMITRI WHITTEN MD FACP [facility] CCDS Jul 18, 2022 13:07
--- NOTE | 2022-07-18 13:13 | Progress Note - Cardiology ---
Cardiology SOAP Progress Note Subjective: No recurrence of cp No palp or syncope No shortness of breath at rest No n/v/d No groin or leg discomfort Objective: I&O/Vital Signs 07/18/22 07/18/22 07/18/22 07/18/22 04:35 06:38 07:08 07:44 Temp 36.4 36.8 Pulse 56 71 67 Resp 18 18 B/P (MAP) 175/86 (115) 202/88 (126) Pulse Ox 96 96 94 O2 Delivery Room Air Room Air Room Air 07/18/22 08:00 Pulse Ox 98 O2 Delivery Room Air 07/18/22 00:00 Intake Total 470 ml Balance 470 ml Weight (Pounds): 161 Weight (Ounces): 0 Weight (Calculated Kilograms): 73.956355 Constitutional: AAO x 3, well-developed, other (frail) Respiratory: No accessory muscle use, No respiratory distress; chest expansion is symmetric, chest is bilaterally symmetric, other (scattered rhonchi; prolonged exp phase) Cardiovascular: bradycardia, S1 and S2 Gastrointestional: No tender; soft, audible bowel sounds Extremities: no lower extremity edema bilateral Neurologic/Psychiatric: other (moves all limbs) Skin: other (fragile skin integrity with multiple bruises to arms, torso and legs) Results/Procedures: Labs Laboratory Tests 07/18/22 08:50: White Blood Count 9.9, Red Blood Count 4.14, Hemoglobin 11.4L, Hematocrit 38, Mean Corpuscular Volume 93, Mean Corpuscular Hemoglobin 28, Mean Corpuscular Hemoglobin Concent 30L, Red Cell Distribution Width 16.2H, Platelet Count 230, Mean Platelet Volume 11.2, Sodium Level 142, Potassium Level 4.0, Chloride Level 112H, Carbon Dioxide Level 19L, Anion Gap 11, Blood Urea Nitrogen 25H, Creatinine 1.62H, Estimat Glomerular Filtration Rate 33, BUN/Creatinine Ratio 1 5, Glucose Level 113H, Calcium Level 8.3L, Magnesium Level 1.8 Laboratory Tests 07/16/22 16:42 07/17/22 04:24 07/18/22 08:50 A/P: Assessment: NSTEMI - unsuccessful attempts at left heart cath through R femoral, L femoral, and R radial arterial approaches - symptomatically stable on current regimen CAD - Card cath of 10/19/19: 90% mid vessel stenosis of the mid to distal left circumflex artery and 90% stenosis of the posterolateral system of the right cor onary. The rest of the coronary arteries exhibit diffuse moderate disease and heavy coronary calcification. S/P successful stenting of the mid to distal left circumflex with Resolute 2.25 x 14 mm stent. 90% stenosis of the distal posterior lateral of the RCA where the vessel is of relatively small caliber. - MPI of 07-11-20 showed no evidence of any signif ischemia or infarction. LVEF 54% - Echo of 07-11-20 showed LVEF 60-65%. Grade 1 diastolic dysfunction. Mod mitral valve regurg with mild calcification. PASP 35-40 mmHg CKD 4 - Appears stable after cath of 10/19/19 Hypertension CVA with L homonymous hemianopsia - small to moderate-sized area of acute/subacute infarct involving the right oc cipital lobe. There is no evidence of intra-cranial hemorrhage, brain herniation, or midline shift on CT of the head on 07-15-18. Management of CVA is by her pcp Carotid artery disease - carotid u/s of 07-15-18, there is mod bilat carotid arterial plaque, worse (50- 70% stenosis) on the right H/O Ischemic cardiomyopathy - (see echo report above) PAF - Intolerant to warfarin due to wide variations in INR - Currently on apixaban Oncology - H/O cervical cancer for which she has undergone chemo (last tx 12 years ago) H/O sleep apnea - non-compliant with CPAP tx HLD - statin tx followed by her PCP H/O sinus bradycardia and V-tach during ED visit in November 2017 - transferred to [facility] at that time Chronic diarrhea - managed by PCP Leg swelling - Reports chronic lymphedema of the right leg Leg discomfort - Bilat foot paresthesias due to peripheral neuropathy Depression - manged by PCP H/o lupus and gout - (details unknown) followed and treated by pcp Family h/o CAD - (son has had coronary stenting; mother has had CVA) Non-compliance - at admission, was non-compliant with antiplatelet therapy and with instructions to quit smoking Plan: * Continue DAPT * Lower dose apixaban because body wgt less than 50 kg and creatinine greater than 1.6 * Advised compliance with medical instructions * Advised to quit smoking immediately and completely * Discussed possibility of yet another attempt at card cath (L radial artery). She wishes to be managed medically at this time. Will discuss again * Monitor labs Clinical Quality Measures AMI/AHF: ASA po Prior to arrival: DIMITRI Hernandez MD FACP [facility]AC CCDS Jul 18, 2022 13:13
[2022-07-18] MEDS: HYDROcodone/APAP 7.5 MG/325 MG (LORTAB, LORCET PLUS) TABLET PO PRN (16:27)
[2022-07-18] MEDS: APIXABAN 2.5 MG (ELIQUIS) TABLET PO SCH (20:10)
[2022-07-18] MEDS ORDERED: doxAzosin 1 MG (CARDURA) TAB PO SCH (21:00)
[2022-07-19 00:03] VITALS: BP_SYST 158; BP_SYST 171; BP_DIAS 81; BP_DIAS 89
[2022-07-19] MEDS: HYDROcodone/APAP 7.5 MG/325 MG (LORTAB, LORCET PLUS) TABLET PO PRN (02:00)
[2022-07-19 03:47] VITALS: BP 169/93
[2022-07-19] MEDS: CATHETER FLUSH 10 ML SYR IVP SCH (05:23)
[2022-07-19 06:00] LABS: CALCIUM 8.2 MG/DL (8.5-10.1); CREATININE SERUM 1.54 MG/DL (0.60-1.30); POTASSIUM 4.3 MMOL/L (3.6-5.0)
[2022-07-19] MEDS: predniSONE 10 MG TAB PO SCH (06:05)
[2022-07-19 06:26] LABS: HEMATOCRIT 34 % (35-52); HEMOGLOBIN 10.6 g/dL (11.5-16.0); MEAN CORPUSCULAR HEMOGLOBIN 28 pg (25-34); MEAN CORPUSCULAR HGB CONC 31 g/dL (32-36); MEAN CORPUSCULAR VOLUME 90 fL (80-99); MEAN PLATELET VOLUME 11.3 fL (9.0-12.2); PLATELET COUNT 192 10^3/uL (130-400); WHITE BLOOD COUNT 8.2 10^3/uL (4.3-11.0)
[2022-07-19 08:16] VITALS: BP 185/96
[2022-07-19] MEDS: CLOPIDOGREL 75 MG (PLAVIX) TABLET PO SCH (08:16)
[2022-07-19] MEDS: PANTOPRAZOLE 40 MG (PROTONIX) TAB PO SCH (08:16)
[2022-07-19] MEDS: amLODIPine 10 MG (NORVASC) TAB PO SCH (08:16)
[2022-07-19] MEDS: ASPIRIN E.C. 81 MG (ECOTRIN) TAB PO SCH (08:16)
[2022-07-19] MEDS: APIXABAN 2.5 MG (ELIQUIS) TABLET PO SCH (08:16)
--- NOTE | 2022-07-19 08:31 | Progress Note - Cardiology ---
Cardiology SOAP Progress Note Objective: I&O/Vital Signs 07/19/22 07/19/22 07/19/22 07/19/22 00:03 01:15 03:47 07:00 Temp 36.3 36.8 Pulse 82 72 86 82 Resp 15 15 B/P (MAP) 158/89 (112) 169/93 (118) Pulse Ox 96 97 O2 Delivery Room Air Room Air 07/19/22 08:16 Temp 37.6 Pulse 74 Resp 16 B/P (MAP) 185/96 (125) Pulse Ox 93 O2 Delivery Room Air 07/19/22 00:00 Intake Total 620 ml Output Total 400 ml Balance 220 ml Weight (Pounds): 161 Weight (Ounces): 0 Weight (Calculated Kilograms): 73.875421 Constitutional: AAO x 3, well-developed, other (frail) Respiratory: No accessory muscle use, No respiratory distress; chest expansion is symmetric, chest is bilaterally symmetric, other (scattered rhonchi; prolonged exp phase) Cardiovascular: bradycardia, S1 and S2 Gastrointestional: No tender; soft, audible bowel sounds Extremities: no lower extremity edema bilateral Neurologic/Psychiatric: other (moves all limbs) Skin: other (fragile skin integrity with multiple bruises to arms, torso and legs) Results/Procedures: Labs Laboratory Tests 07/18/22 08:50: White Blood Count 9.9, Red Blood Count 4.14, Hemoglobin 11.4L, Hematocrit 38, Mean Corpuscular Volume 93, Mean Corpuscular Hemoglobin 28, Mean Corpuscular Hemoglobin Concent 30L, Red Cell Distribution Width 16.2H, Platelet Count 230, Mean Platelet Volume 11.2, Sodium Level 142, Potassium Level 4.0, Chloride Level 112H, Carbon Dioxide Level 19L, Anion Gap 11, Blood Urea Nitrogen 25H, Creatinine 1.62H, Estimat Glomerular Filtration Rate 33, BUN/Creatinine Ratio 15, Glucose Level 113H, Calcium Level 8.3L, Magnesium Level 1.8 07/19/22 04:15: Sodium Level 143, Potassium Level 4.3, Chloride Level 114H, Carbon Dioxide Level 17L, Anion Gap 12, Blood Urea Nitrogen 24H, Creatinine 1.54H, Estimat Glomerular Filtration Rate 35, BUN/Creatinine Ratio 16, Glucose Level 96, Calcium Level 8.2L 4/28/23 06:19: White Blood Count 8.2, Red Blood Count 3.80, Hemoglobin 10.6L, Hematocrit 34L, Mean Corpuscular Volume 90, Mean Corpuscular Hemoglobin 28, Mean Corpuscular Hemoglobin Concent 31L, Red Cell Distribution Width 15.7H, Platelet Count 192, Mean Platelet Volume 11.3 Laboratory Tests 07/18/22 08:50 07/19/22 04:15 07/19/22 06:19 A/P: Assessment: NSTEMI - unsuccessful attempts at left heart cath through R femoral, L femoral, and R radial arterial approaches - symptomatically stable on current regimen CAD - Card cath of 10/19/19: 90% mid vessel stenosis of the mid to distal left circumflex artery and 90% stenosis of the posterolateral system of the right coronary. The rest of the coronary arteries exhibit diffuse moderate disease and heavy coronary calcification. S/P successful stenting of the mid to distal left circumflex with Resolute 2.25 x 14 mm stent. 90% stenosis of the distal posterior lateral of the RCA where the vessel is of relatively small caliber. - MPI of 07-11-20 showed no evidence of any signif ischemia or infarction. LVEF 54% - Echo of 07-11-20 showed LVEF 60-65%. Grade 1 diastolic dysfunction. Mod mitral valve regurg with mild calcification. PASP 35-40 mmHg CKD 4 - Appears stable after cath of 10/19/19 Hypertension - uncontrolled CVA with L homonymous hemianopsia - small to moderate-sized area of acute/subacute infarct involving the right occipital lobe. There is no evidence of intra-cranial hemorrhage, brain herniation, or midline shift on CT of the head on 07-15-18. Management of CVA is by her pcp Carotid artery disease - carotid u/s of 07-15-18, there is mod bilat carotid arterial plaque, worse (50- 70% stenosis) on the right H/O Ischemic cardiomyopathy - (see echo report above) PAF - Intolerant to warfarin due to wide variations in INR - Currently on apixaban Oncology - H/O cervical cancer for which she has undergone chemo (last tx 12 years ago) H/O sleep apnea - non-compliant with CPAP tx HLD - statin tx followed by her PCP H/O sinus bradycardia and V-tach during ED visit in November 2017 - transferred to [facility] at that time Chronic diarrhea - managed by PCP Leg swelling - Reports chronic lymphedema of the right leg Leg discomfort - Bilat foot paresthesias due to peripheral neuropathy Depression - manged by PCP H/o lupus and gout - (details unknown) followed and treated by pcp Family h/o CAD - (son has had coronary stenting; mother has had CVA) Non-compliance - at admission, was non-compliant with antiplatelet therapy and with instructions to quit smoking Plan: * Continue DAPT * Lower dose apixaban because body wgt less than 50 kg and creatinine greater than 1.6 * Advised compliance with medical instructions * Advised to quit smoking immediately and completely * Discussed possibility of yet another attempt at card cath (L radial artery). She wishes to be managed medically at this time. Will discuss again * BP not well controlled - increase BB * Monitor labs Clinical Quality Measures AMI/AHF: ASA po Prior to arrival: TATY Dickey Jul 19, 2022 08:31
[2022-07-19] MEDS ORDERED: meTOproloL SUCCINATE 50 MG (TOPROL XL) TAB PO SCH (09:00)
[2022-07-19] MEDS ORDERED: METO50TA7 PO (10:16)
[2022-07-19] MEDS ORDERED: CLOP75TA28 PO (10:16)
[2022-07-19] MEDS ORDERED: AMLO-251 PO (10:16)
[2022-07-19] MEDS ORDERED: DOXA1TAB2 PO (10:16)
[2022-07-19] MEDS ORDERED: ATOR40TA PO (10:16)
[2022-07-19 12:00] VITALS: BP 158/78
--- NOTE | 2022-07-19 14:05 | Diagnostic Imaging Report ---
INDICATION: Numbness of the left lower extremity. COMPARISON: None TECHNIQUE: Routine grayscale color-flow and duplex evaluation of the left lower extremity arterial system was performed. FINDINGS: There is extensive echogenic atherosclerotic disease seen scattered throughout the left lower extremity arterial system. Normal brisk systolic upstroke seen within the left common femoral artery. However, there is monophasic flow within the left superficial femoral and popliteal arteries. There is also part the start is monophasic waveform. Additionally, flow cannot be demonstrated within the dorsalis pedis artery. IMPRESSION: 1. Extensive atherosclerotic disease of the left lower extremity arterial system. Correlation with conventional angiogram or CTA is advised to assess for additional disease within the left pelvis. 2. No demonstrable flow is seen within the left dorsalis pedis artery. Dictated by: Dictated on workstation # [id number]
--- NOTE | 2022-07-19 14:26 | Progress Note - Cardiology ---
Cardiology SOAP Progress Note Subjective: No cp or palp or syncope or shortness of breath at rest Able to ambulate with her walker (w/o any recurrence of cp) No leg swelling or groin swelling or discomfort Notes some numbness of the L leg (present intermittently on a chronic basis) No n/v/d Wishes to go home Objective: I&O/Vital Signs 07/19/22 07/19/22 07/19/22 07/19/22 03:47 07:00 08:00 08:16 Temp 36.8 37.6 Pulse 86 82 74 Resp 15 16 B/P (MAP) 169/93 (118) 185/96 (125) Pulse Ox 97 99 93 O2 Delivery Room Air Room Air Room Air 07/19/22 07/19/22 12:00 13:00 Temp 36.9 Pulse 56 59 Resp 16 B/P (MAP) 158/78 (104) Pulse Ox 95 O2 Delivery Room Air 07/19/22 00:00 Intake Total 620 ml Output Total 400 ml Balance 220 ml Weight (Pounds): 161 Weight (Ounces): 0 Weight (Calculated Kilograms): [id number] Constitutional: AAO x 3, well-developed, other (frail) Respiratory: No accessory muscle use, No respiratory distress; chest expansion is symmetric, chest is bilaterally symmetric, other (scattered rhonchi; prolonged exp phase) Cardiovascular: bradycardia, S1 and S2 Gastrointestional: No tender; soft, audible bowel sounds Extremities: no lower extremity edema bilateral Neurologic/Psychiatric: other (moves all limbs; notes some numbness of the L leg but touch and pain and proprioception senses are intact on exam of this leg, and the leg is warm and pink) Skin: other (fragile skin integrity with multiple bruises to arms, torso and legs) Results/Procedures: Labs Laboratory Tests 07/19/22 04:15: Sodium Level 143, Potassium Level 4.3, Chloride Level 114H, Carbon Dioxide Level 17L, Anion Gap 12, Blood Urea Nitrogen 24H, Creatinine 1.54H, Estimat Glomerular Filtration Rate 35, BUN/Creatinine Ratio 16, Glucose Level 96, Calcium Level 8.2L 07/19/22 06:19: White Blood Count 8.2, Red Blood Count 3.80, Hemoglobin 10.6L, Hematocrit 34L, Mean Corpuscular Volume 90, Mean Corpuscular Hemoglobin 28, Mean Corpuscular Hemoglobin Concent 31L, Red Cell Distribution Width 15.7H, Platelet Count 192, Mean Platelet Volume 11.3 A/P: Assessment: NSTEMI on 07/16/22, clinically stable, no recurrence of symptoms on current regimen - unsuccessful attempts at left heart cath through R femoral, L femoral, and R radial arterial approaches - symptomatically stable on current regimen - PAD preventing cardiac access CAD - Card cath of 10/19/19: 90% mid vessel stenosis of the mid to distal left circumflex artery and 90% stenosis of the posterolateral system of the right coronary. The rest of the coronary arteries exhibit diffuse moderate disease and heavy coronary calcification. S/P successful stenting of the mid to distal left circumflex with Resolute 2.25 x 14 mm stent. 90% stenosis of the distal posterior lateral of the RCA where the vessel is of relatively small caliber. - MPI of 07-11-20 showed no evidence of any signif ischemia or infarction. LVEF 54% - Echo of 07-11-20 showed LVEF 60-65%. Grade 1 diastolic dysfunction. Mod mitral valve regurg with mild calcification. PASP 35-40 mmHg CKD 4 - Appears stable after cath of 10/19/19 PAD - Arterial Doppler of the L leg on 07/19/22: extensive echogenic atherosclerotic disease seen scattered throughout the left lower extremity arterial system. Normal brisk systolic upstroke seen within the left common femoral artery. However, there is monophasic flow within the left superficial femoral and poplit eal arteries. There is also part the start is monophasic waveform. Additionally, flow cannot be demonstrated within the dorsalis pedis artery Hypertension - uncontrolled CVA with L homonymous hemianopsia - small to moderate-sized area of acute/subacute infarct involving the right occipital lobe. There is no evidence of intra-cranial hemorrhage, brain herniation, or midline shift on CT of the head on 07-15-18. Management of CVA is by her pcp Carotid artery disease - carotid u/s of 07-15-18, there is mod bilat carotid arterial plaque, worse (50- 70% stenosis) on the right H/O Ischemic cardiomyopathy - (see echo report above) PAF - Intolerant to warfarin due to wide variations in INR - Currently on apixaban Oncology - H/O cervical cancer for which she has undergone chemo (last tx 12 years ago) H/O sleep apnea - non-compliant with CPAP tx HLD - statin tx followed by her PCP H/O sinus bradycardia and V-tach during ED visit in November 2017 - transferred to [facility] at that time Chronic diarrhea - managed by PCP Leg swelling - Reports chronic lymphedema of the right leg Leg discomfort - Bilat foot paresthesias due to peripheral neuropathy Depression - manged by PCP H/o lupus and gout - (details unknown) followed and treated by pcp Family h/o CAD - (son has had coronary stenting; mother has had CVA) Non-compliance - at admission, was non-compliant with antiplatelet therapy and with instructions to quit smoking Plan: * Continue DAPT * Lower dose apixaban because body wgt less than 50 kg and creatinine greater than 1.6 * Advised compliance with medical instructions * Advised to quit smoking immediately and completely * Discussed possibility of yet another attempt at card cath (L radial artery). She wishes to be managed medically only * BP not well controlled - increase BB * Outpt f/u advised Clinical Quality Measures AMI/AHF: ASA po Prior to arrival: DIMITRI Hernandez MD FACP FAC CCDS Jul 19, 2022 14:26
--- NOTE | 2022-07-19 14:49 | Discharge Summary ---
Discharge Summary Hospital Course Problems/Diagnosis: (1) NSTEMI (non-ST elevated myocardial infarction) Status: Acute Assessment & Plan: 07/17- Cardiology consulted, plan for echo and cath today. Statin started, she doesn't recall why it was stopped in past. Continue aspirin, clopidogrel. 07/18- unable to complete cath yesterday due to unable to pass in either femoral artery, defer to Cardiology plans unable to complete cath via radial artery yesterday either, proceeding with medical management (2) Hypertension Status: Chronic Assessment & Plan: Resume home medications. Beta jenniffer increased per Card for poor control. Qualifiers: Qualified Codes: I10 - Essential (primary) hypertension (3) Lupus (systemic lupus erythematosus) Status: Chronic (4) Atrial fibrillation Status: Chronic Assessment & Plan: Resume home apixaban when okay with Cardiology (5) History of stroke Status: Chronic (6) Peripheral arterial disease Status: Acute Assessment & Plan: Having numbness in left leg, but not pain or weakness, extensive occlusion seen on US, chronic, okay for d/c per Cardiology. Hospital Course Date of Admission: Jul 16, 2022 at 20:21 Admission Diagnosis : Family Physician/Provider: Sahil Us DO Date of Discharge: 07/19/22 Discharge Diagnosis: See problem list Hospital Course: See problem list Labs and Pending Lab Test: Laboratory Tests 07/19/22 04:15: Sodium Level 143, Potassium Level 4.3, Chloride Level 114H, Carbon Dioxide Level 17L, Anion Gap 12, Blood Urea Nitrogen 24H, Creatinine 1.54H, Estimat Glomerular Filtration Rate 35, BUN/Creatinine Ratio 16, Glucose Level 96, Calcium Level 8.2L 07/19/22 06:19: White Blood Count 8.2, Red Blood Count 3.80, Hemoglobin 10.6L, Hematocrit 34L, Mean Corpuscular Volume 90, Mean Corpuscular Hemoglobin 28, Mean Corpuscular Hemoglobin Concent 31L, Red Cell Distribution Width 15.7H, Platelet Count 192, Mean Platelet Volume 11.3 Home Meds Active Amlodipine Besylate 10 Mg Tablet 10 Mg PO DAILY Metoprolol Succinate 50 Mg Tab.er.24h 50 Mg PO DAILY Doxazosin Mesylate 1 Mg Tablet 1 Mg PO HS Lipitor (Atorvastatin Calcium) 40 Mg Tablet 40 Mg PO HS Clopidogrel (Clopidogrel Bisulfate) 75 Mg Tablet 75 Mg PO DAILY Reported Hydrocodone-Acetamin 7.5-325 (Hydrocodone/Acetaminophen) 7.5 Mg-325 Mg Tablet 1 Each PO TID PRN Viibryd (Vilazodone Hydrochloride) 40 Mg Tablet 40 Mg PO DAILY Nitroglycerin 0.4 Mg Tab.subl 0.4 Mg PO UD PRN Eliquis (Apixaban) 2.5 Mg Tablet 2.5 Mg PO BID LAST FILLED 05-02-2022 #60/30 DAY SUPPLY Prednisone 10 Mg Tab 10 Mg PO DAILY Assessment/Pt DC Instructions Follow up with Cardiology as directed. Follow up with primary within a week. Discharge Diet: Cardiac Diet Activity as Tolerated: Yes Discharge Physical Examination Allergies: Coded Allergies: No Known Drug Allergies (Verified , 06/10/22) General Appearance: No Apparent Distress Respiratory: Lungs Clear, Normal Breath Sounds Cardiovascular: Regular Rate, Rhythm, No Murmur Gastrointestinal: Normal Bowel Sounds, Soft Extremity: Other (warm) Neurologic/Psychiatric: Alert, Normal Mood/Affect, Other (4/5 strength bilateral hip flexion, ankle dorsi and plantarflexion) Clinical Quality Measures AMI/AHF: ASA po Prior to arrival: HERNAN Tucker MD Jul 19, 2022 14:49
== END 2022-07-19 14:21 | disposition home or self-care (01) ==
LOC: EDUNIT# 16:33 → ER 16:35 → UNDOADMOB 20:21 → CSD 20:21 → UNDODISOB 07-19 15:42
PROVIDERS: ADMIT Family Medicine; ATTEND Family Medicine
DX: I21.4 Non-ST elevation (NSTEMI) myocardial infarction (principal); M32.9 Systemic lupus erythematosus, unspecified; I48.91 Unspecified atrial fibrillation; I73.9 Peripheral vascular disease, unspecified; I25.10 Atherosclerotic heart disease of native coronary artery without angina pectoris; I12.9 Hypertensive chronic kidney disease with stage 1 through stage 4 chronic kidney disease, or unspecified chronic kidney disease; N18.4 Chronic kidney disease, stage 4 (severe); I63.89 Other cerebral infarction; H53.462 Homonymous bilateral field defects, left side; I48.0 Paroxysmal atrial fibrillation; G47.30 Sleep apnea, unspecified; E78.5 Hyperlipidemia, unspecified; K52.9 Noninfective gastroenteritis and colitis, unspecified; I65.23 Occlusion and stenosis of bilateral carotid arteries; M79.89 Other specified soft tissue disorders; F32.A Depression, unspecified; F17.210 Nicotine dependence, cigarettes, uncomplicated; Z86.73 Personal history of transient ischemic attack (TIA), and cerebral infarction without residual deficits; Z85.41 Personal history of malignant neoplasm of cervix uteri; Z91.198 Patient's noncompliance with other medical treatment and regimen for other reason; Z95.5 Presence of coronary angioplasty implant and graft; Z79.01 Long term (current) use of anticoagulants
CPT/HCPCS: 36140; 36415; 71045; 80048; 80053; 81000; 83735; 83874; 84484; 85025; 85027; 85610; 85730; 86141; 93005; 93041; 93306; 93458; 93926; 94760; 96361

== ENCOUNTER 2022-08-24 16:40 | Emergency (ER) | payer MEDICAID, MEDICARE ==
[~2022-08-24] VITALS: Ht 140 cm; Wt 46.0 kg
[~2022-08-24 16:40] MED LIST changes: +ATOR40TA PO; +HYDR-3817 PO; +VILA40TA PO
[2022-08-24 17:04] LABS: BASOPHILS % (AUTO) 0 % (0-10); HEMOGLOBIN 10.6 g/dL (11.5-16.0); LYMPHOCYTES % (AUTO) 9 % (12-44)
--- NOTE | 2022-08-24 17:04 | ED Chest Pain ---
General Chief Complaint: Chest Pain Stated Complaint: PR Nursing Triage Note: PT ARRIVED PER EMS, PT STATES HAS HAD CHEST PAIN FOR ABOUT AND HOUR. PT STATES NITRO PASTE MADE PAIN GO DOWN TO 2/10. PT STATES CHEST PAIN 10/10 PRIOR TO EMS. PT STATES HAS BEEN DIAPHORETIC. Source: patient, EMS, old records Exam Limitations: no limitations History of Present Illness Date Seen by Provider: Aug 24, 2022 Time Seen by Provider: 16:41 Initial Comments This 77-year-old woman with known coronary artery disease presents to the emergency room with complaints of chest pain for about 1 hour and suspicion of STEMI based on EMS EKG. She exhibited subtle ST elevation in V2 and V3 with slightly more pronounced ST elevation in V5 and V6. EMS reported EKG changes were dynamic in route. Patient was admitted to this facility from July 16 through July 19 for NSTEMI. Multiple attempts at cardiac angiography were made by Dr. Olvera but attempts to access the radial and femoral arteries were unsuccessful. Attempts were abandoned. Patient ultimately had resolution of symptoms and was managed medically. Eugenio took aspirin 324 mg and nitroglycerin x3. She reports this improved her pain. EMS applied a nitro patch. Pain is much improved at this time. EKG on arrival did not demonstrate any ST elevation. There appears to be dynamic changes on her serial EKGs. She did have some shortness of breath and diaphoresis which has since resolved. She takes Plavix and Eliquis but has not taken any yet today. She is alert, oriented, and in no acute distress on arrival. Allergies and Home Medications Allergies Coded Allergies: No Known Drug Allergies (Verified , 06/10/22) Patient Home Medication List Home Medication List Reviewed: Yes Amlodipine Besylate (Amlodipine Besylate) 10 Mg Tablet, 10 MG PO DAILY Prescribed by: TATY ENGLE on 07/19/22 1016 Apixaban (Eliquis) 2.5 Mg Tablet, 2.5 MG PO BID, (Reported) Entered as Reported by: KETURAH FLORES on 01/24/20 1422 Atorvastatin Calcium (Lipitor) 40 Mg Tablet, 40 MG PO HS Prescribed by: TATY ENGLE on 07/19/22 1016 Clopidogrel Bisulfate (Clopidogrel) 75 Mg Tablet, 75 MG PO DAILY Prescribed by: TATY ENGLE on 07/19/22 1016 Doxazosin Mesylate (Doxazosin Mesylate) 1 Mg Tablet, 1 MG PO HS Prescribed by: TATY ENGLE on 07/19/22 1016 Hydrocodone/Acetaminophen (Hydrocodone-Acetamin 7.5-325) 7.5 Mg-325 Mg Tablet, 1 EACH PO TID PRN for PAIN-MODERATE (5-7), (Reported) Entered as Reported by: MARIA ESTHER CATALAN on 07/17/22 1453 Metoprolol Succinate (Metoprolol Succinate) 50 Mg Tab.er.24h, 50 MG PO DAILY Prescribed by: TATY ENGLE on 07/19/22 1016 Nitroglycerin (Nitroglycerin) 0.4 Mg Tab.subl, 0.4 MG PO UD PRN for CHEST PAIN (ANGINA), (Reported) Entered as Reported by: MARIA ESTHER CATALAN on 07/11/20 1120 Prednisone (Prednisone) 10 Mg Tab, 10 MG PO DAILY, (Reported) Entered as Reported by: MIGUEL ANGEL BERMUDEZ on 07/16/18 0834 Vilazodone Hydrochloride (Viibryd) 40 Mg Tablet, 40 MG PO DAILY, (Reported) Entered as Reported by: MARIA ESTHER CATALAN on 07/17/22 1453 Review of Systems Review of Systems Constitutional: see HPI EENTM: No Symptoms Reported Respiratory: See HPI Cardiovascular: See HPI Gastrointestinal: No Symptoms Reported Genitourinary: No Symptoms Reported Musculoskeletal: no symptoms reported Skin: no symptoms reported Psychiatric/Neurological: No Symptoms Reported Endocrine: No Symptoms Reported Hematologic/Lymphatic: No Symptoms Reported Past Nbfquau-[id number]-Sblftx Hx Patient Social History Tobacco Use?: Yes Tobacco type used: Cigarettes Smoking Status: Current Everyday Smoker Substance use?: Yes Substance type: Marijuana Substance frequency: Once in a while Alcohol Use?: No Pt feels they are or have been: No Immunizations Up To Date Tetanus Booster (TDap): Less than 5yrs PED Vaccines UTD: No First/Initial COVID19 Vaccinat: X3 Second COVID19 Vaccination Rod: X3 Third COVID19 Vaccination Date: X3 Seasonal Allergies Seasonal Allergies: No Past Medical History Surgery/Hospitalization HX: LUPUS, HTN, PR, STROKE, ARTHRITIS CARDIAC STENT Surgeries: Yes (MODIFIED RADICAL VULVECTOMY 1991/CHOLECYSTECTOMY;CARDIAC CATHS- STENT X 1) Abdominal, Adenoidectomy, Cardiac, Coronary Stent, Gallbladder, Hysterectomy, Oophorectomy, Orthopedic, Tonsillectomy Respiratory: Yes (REFUSES TO WEAR CPAP) Pneumonia, Sleep Apnea Currently Using CPAP: No Currently Using BIPAP: No Cardiac: Yes (HX AORTIC/RENAL ART THROMBUS;GANGRENE/TOES;V- TACH;BRADYCARDIA;ASVD) Coronary Artery Disease, Heart Attack, High Cholesterol, Hypertension, Irregular Heartbeat Neurological: Yes (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) Neuropathy, Stroke, TIA 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 Disorders: Yes (HX OF CERVICAL AND VULVAR CA--MODIFIED RADICAL VULVECTOMY 1991;HYST/BSO) 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 Disorders: Denies 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, 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 Sexually Transmitted Disease: No HIV/AIDS: No Genitourinary: Yes (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) Bladder Infection, Renal Failure Gastrointestinal: Yes (S/P CHOLECYSTECTOMY) Gastroesophageal Reflux, Chronic Diarrhea, Hiatal Hernia, Gall Bladder Disease Musculoskeletal: Yes (GANGRENE OF TOES-TX WITH ANTIBIOTICS; ISCHEMIC FOOT ULCER) Arthritis, Fibromyalgia Endocrine: Yes Lupus HEENT: No Loss of Vision: Left Hearing Impairment: Denies Cancer: Yes Cervical, Vaginal Did You Recieve Any Treatments: Yes What Type of Treatment Did You: Chemotherapy, Radiation, Surgical Intervention Psychosocial: Yes Anxiety Integumentary: Yes (History of "gangrene" of the toes.; ISCHEMIC FOOT ULCER) Blood Disorders: No Adverse Reaction/Blood Tranf: No Family Medical History Arthritis 19 FATHER 19 MOTHER Cardiovascular disease 19 MOTHER Completed stroke 19 MOTHER maternal grandmother Congenital heart disease 19 MOTHER Diabetes mellitus 19 MOTHER maternal grandmother Hypercholesterolemia 19 MOTHER maternal grandmother Hypertension 19 MOTHER maternal grandmother Myocardial infarction maternal grandmother Tuberculosis paternal great grandfather No Pertinent Family Hx, Heart Disease, Diabetes, Stroke Physical Exam Vital Signs Vital Signs - First Documented 08/24/22 20:25 Pulse 55 Resp 18 B/P (MAP) 146/66 Pulse Ox 98 O2 Delivery Room Air Capillary Refill : Less Than 3 Seconds Height, Weight, BMI Height: 5'0.00" Weight: 161lbs. 0oz. 73.639503gk; 23.00 BMI Method:Stated General Appearance: No Apparent Distress, WD/WN, Thin HEENT: PERRL/EOMI, Normal ENT Inspection Neck: Normal Inspection; No JVD Respiratory: Lungs Clear, Normal Breath Sounds, No Accessory Muscle Use Cardiovascular: Regular Rate, Rhythm, No Edema, No Murmur Gastrointestinal: Non Tender, Soft Extremity: Normal Inspection, No Pedal Edema Neurologic/Psychiatric: Alert, Oriented x3, No Motor/Sensory Deficits, Other (Tearful) Skin: Normal Color, Warm/Dry, Ecchymosis Progress/Results/Core Measures Results/Orders Lab Results Laboratory Tests Test 08/24/22 15:36 08/24/22 16:56 Range/Units Prothrombin Time 14.6 12.2-14.7 SEC INR Comment 1.1 0.8-1.4 Activated Partial Thromboplast Time 159 *H 24-35 SEC White Blood Count 12.1 H 4.3-11.0 10^3/uL Red Blood Count 3.91 3.80-5.11 10^6/uL Hemoglobin 10.6 L 11.5-16.0 g/dL Hematocrit 34 L 35-52 % Mean Corpuscular Volume 87 80-99 fL Mean Corpuscular Hemoglobin 27 25-34 pg Mean Corpuscular Hemoglobin Concent 31 L 32-36 g/dL Red Cell Distribution Width 15.8 H 10.0-14.5 % Platelet Count 277 130-400 10^3/uL Mean Platelet Volume 10.7 9.0-12.2 fL Immature Granulocyte % (Auto) 1 % Neutrophils (%) (Auto) 87 H 42-75 % Lymphocytes (%) (Auto) 9 L 12-44 % Monocytes (%) (Auto) 3 0-12 % Eosinophils (%) (Auto) 0 0-10 % Basophils (%) (Auto) 0 0-10 % Neutrophils # (Auto) 10.6 H 1.8-7.8 10^3/uL Lymphocytes # (Auto) 1.1 1.0-4.0 10^3/uL Monocytes # (Auto) 0.3 0.0-1.0 10^3/uL Eosinophils # (Auto) 0.0 0.0-0.3 10^3/uL Basophils # (Auto) 0.0 0.0-0.1 10^3/uL Immature Granulocyte # (Auto) 0.1 0.0-0.1 10^3/uL Neutrophils % (Manual) 84 % Lymphocytes % (Manual) 12 % Monocytes % (Manual) 4 % Clumped Platelets OCCASIONAL Percent Immature Platelet Fraction 3.6 0.0-7.6 % Blood Morphology Comment NORMAL Sodium Level 141 135-145 MMOL/L Potassium Level 3.9 3.6-5.0 MMOL/L Chloride Level 113 H 98-107 MMOL/L Carbon Dioxide Level 13 L 21-32 MMOL/L Anion Gap 15 H 5-14 MMOL/L Blood Urea Nitrogen 28 H 7-18 MG/DL Creatinine 1.81 H 0.60-1.30 MG/DL Estimat Glomerular Filtration Rate 29 BUN/Creatinine Ratio 15 Glucose Level 129 H 70-105 MG/DL Calcium Level 8.6 8.5-10.1 MG/DL Corrected Calcium 8.9 8.5-10.1 MG/DL Magnesium Level 1.4 L 1.6-2.4 MG/DL Total Bilirubin 0.3 0.1-1.0 MG/DL Aspartate Amino Transf (AST/SGOT) 10 5-34 U/L Alanine Aminotransferase (ALT/SGPT) 9 0-55 U/L Alkaline Phosphatase 69 40-136 U/L Myoglobin 87.5 10.0-92.0 NG/ML Troponin I < 0.028 <0.028 NG/ML Total Protein 5.8 L 6.4-8.2 GM/DL Albumin 3.6 3.2-4.5 GM/DL My Orders Orders - HENRY ROSE MD Ekg-Prn For Chest Pain Or Rhyt (08/24/22 16:40) Cbc With Automated Diff (08/24/22 16:52) Magnesium (08/24/22 16:52) Chest 1 View, Ap/Pa Only (08/24/22 16:52) Ekg Tracing (08/24/22 16:52) Comprehensive Metabolic Panel (08/24/22 16:52) Myoglobin Serum (08/24/22 16:52) Protime With Inr (08/24/22 16:52) Partial Thromboplastin Time (08/24/22 16:52) O2 (08/24/22 16:52) Monitor-Rhythm Ecg Trace Only (08/24/22 16:52) Ed Iv/Invasive Line Start (08/24/22 16:52) Troponin I Dian (08/24/22 16:52) Manual Differential (08/24/22 16:56) Clopidogrel Tablet (Plavix Tablet) (08/24/22 17:15) Metoprolol Succinate (Xl) Tab (Toprol Xl (08/24/22 17:09) Heparin Drip 27298 Unit/500ml (Heparin (08/24/22 17:15) Heparin (Bolus Per Protocol) (Heparin (B (08/24/22 17:09) Magnesium 1 Gm/100 Ml Ivpb (Magnesium Ac (08/24/22 18:00) Medications Given in ED Current Medications Medications Dose Ordered Sig/Kenneth Route Start Time Stop Time Status Last Admin Dose Admin Hydroxyzine Pamoate 50 mg ONCE ONCE PO 08/24/22 20:15 08/24/22 20:16 DC 08/24/22 20:08 50 MG Vital Signs/I&O 08/24/22 20:25 Pulse 55 Resp 18 B/P (MAP) 146/66 Pulse Ox 98 O2 Delivery Room Air 08/25/22 00:00 Intake Total 100 ml Balance 100 ml Progress Progress Note #1: Time: 17:21 Progress Note Patient was promptly interviewed and examined upon arrival. Report was received from EMS. Documentation from prior admission was reviewed. Upon review of the EKG faxed by EMS, Friction Welding Machine Operator was activated, transfer and pumphouse operator was notified, and Dr. Olvera was called as joiner helper on-call. In reviewing history with Dr. Olvera, it was noted that two unsuccessful attempts were made at angiography during her last admission the end of June. Dr. Olvera states patient should be transferred as we are unlikely to provide necessary therapies at our facility given the difficulties during her last admission. EKG on arrival here showed no ST elevation. These dynamic changes with no current ST elevation likely represent NSTEMI. I am presently awaiting labs and will contact [facility] after review of labs. In the meantime, Dr. Olvera recommended administering Plavix, heparin bolus and drip, and Toprol-XL. These orders were placed. Patient has minimal pain at this time and has stable vital signs. Friction Welding Machine Operator activation was canceled after review of the current EKG and discussion with Dr. Olvera. Progress Note #2: Time: 18:49 Progress Note Patient reports pain has resolved. Labs have been reviewed in their entirety. Troponin was unremarkable. Magnesium was low at 1.4 and a gram of magnesium is infusing by IV route for replacement. Hemoglobin was 10.6 and WBC was 12.1. Creatinine was elevated at 1.81 and BUN was 28 representing slight decline in renal function from prior. Labs were reviewed and interpreted by me. Chest x- ray was viewed by me and radiologist report reviewed. No acute abnormalities were appreciated. Transfer was accepted by Dr. Lewis at [facility]. We are awaiting bed assignment for transfer and determination of transfer method. Patient is agreeable to transfer. We discussed CODE STATUS, and she elects full code. Initial ECG Impression Date: Aug 24, 2022 Initial ECG Impression Time: 16:30 Initial ECG Rate: 76 Initial ECG Rhythm: Normal Sinus Comment Sinus rhythm with ST elevation in V3, V5, and V6 suggestive of lateral ischemia. Short FL interval. No significant axis deviation. EKG : EKG Time: 16:47 Rate: 82 Rhythm: Normal Sinus Comment Sinus rhythm with no diagnostic ST elevation or depression. No significant abnormal intervals or axis deviation. Diagnostic Imaging Diagonstic Imaging: Xray Plain Films/CT/US/NM/MRI: chest Comments NAME: [facility] REC#: [id number] PT STATUS: REG ER : 1945 PHYSICIAN: HENRY ROSE MD ADMIT DATE: 08/24/22/ER Signed Date of Exam:08/24/22 CHEST 1 VIEW, AP/PA ONLY EXAMINATION: Chest radiograph, portable AP view. DATE: 08/24/2022 5:03 PM INDICATION: 77-year-old female, chest pain. COMPARISON: July 16, 2022. FINDINGS: Heart size and mediastinal contours are unchanged. There is no identified pneumothorax. There is no large pleural effusion. There are interstitial opacities which are unchanged. There is no identified interval focal airspace consolidation. There is advanced bilateral glenohumeral arthritis. There is widening of the right greater than left acromioclavicular joints. There is scoliosis and multilevel degenerative changes of the spine. IMPRESSION: 1. Stable interstitial opacities since comparison exam and also since earlier imaging dating back to at least February 2020. This may reflect chronic lung changes. 2. No evidence of an interval acute cardiopulmonary abnormality. Dictated by: Dictated on workstation # [id number] Dict: 08/24/22 1705 Trans: 08/24/22 1723 [facility] [id number] Interpreted by: ROSEMARIE ADAM MD Electronically signed by: ROSEMARIE ADAM MD 08/24/22 1723 Departure Impression Primary Impression: Chest pain Qualified Codes: R07.9 - Chest pain, unspecified Additional Impressions: Acute coronary syndrome Hypomagnesemia Disposition: 02 XFER SHT-TRM HOSP Condition: Stable Transfer Transfer Reason: Exceeds level of care Time Spoke to Accepting Phy: 18:18 Transfer Progress Notes Transfer to [facility] excepted by Dr. Lewis, joiner helper on-call Transfer Time: 20:25 Transfer Facility: [facility] Method of Transfer: Air Departure-Patient Inst. Referrals: MARIA ESTHER SABILLON DO (PCP/Family) Primary Care Physician Copy Copies To 1: DIMITRI OLVERA MD FACP FACC CCDS Copies To 2: MARIA ESTHER SABILLON JOSHUA T MD Aug 24, 2022 17:04
[2022-08-24 17:06] LABS: EOSINOPHILS % (AUTO) 0 % (0-10); HEMATOCRIT 34 % (35-52); LYMPHOCYTES # (AUTO) 1.1 10^3/uL (1.0-4.0); MEAN CORPUSCULAR HEMOGLOBIN 27 pg (25-34); MEAN CORPUSCULAR HGB CONC 31 g/dL (32-36); MEAN CORPUSCULAR VOLUME 87 fL (80-99); MEAN PLATELET VOLUME 10.7 fL (9.0-12.2); MONOCYTES # (AUTO) 0.3 10^3/uL (0.0-1.0); MONOCYTES % (AUTO) 3 % (0-12); NEUTROPHILS # (AUTO) 10.6 10^3/uL (1.8-7.8); NEUTROPHILS % (AUTO) 87 % (42-75); PLATELET COUNT 277 10^3/uL (130-400); WHITE BLOOD COUNT 12.1 10^3/uL (4.3-11.0)
[2022-08-24] MEDS ORDERED: HEParin 1000 UNIT/ML (10ML VIAL) FOR BOLUS IV ONE (17:09)
[2022-08-24] MEDS ORDERED: meTOproloL SUCCINATE 50 MG (TOPROL XL) TAB PO STA (17:09)
--- NOTE | 2022-08-24 17:13 | Diagnostic Imaging Report ---
EXAMINATION: Chest radiograph, portable AP view. DATE: 08/24/2022 5:03 PM INDICATION: 77-year-old female, chest pain. COMPARISON: July 16, 2022. FINDINGS: Heart size and mediastinal contours are unchanged. There is no identified pneumothorax. There is no large pleural effusion. There are interstitial opacities which are unchanged. There is no identified interval focal airspace consolidation. There is advanced bilateral glenohumeral arthritis. There is widening of the right greater than left acromioclavicular joints. There is scoliosis and multilevel degenerative changes of the spine. IMPRESSION: 1. Stable interstitial opacities since comparison exam and also since earlier imaging dating back to at least February 2020. This may reflect chronic lung changes. 2. No evidence of an interval acute cardiopulmonary abnormality. Dictated by: Dictated on workstation # [id number]
[2022-08-24] MEDS ORDERED: HEParin DRIP 25000 UNIT/500ML 500 ML IV ONE (17:15)
[2022-08-24] MEDS ORDERED: CLOPIDOGREL 75 MG (PLAVIX) TABLET PO ONE (17:15)
[2022-08-24 17:24] LABS: ALBUMIN 3.6 GM/DL (3.2-4.5)
[2022-08-24 17:25] LABS: CHLORIDE 113 MMOL/L (98-107); POTASSIUM 3.9 MMOL/L (3.6-5.0); SODIUM 141 MMOL/L (135-145)
[2022-08-24 17:26] LABS: CALCIUM 8.6 MG/DL (8.5-10.1)
[2022-08-24 17:27] LABS: GLUCOSE 129 MG/DL (70-105); TOTAL PROTEIN 5.8 GM/DL (6.4-8.2)
[2022-08-24 17:28] LABS: CARBON DIOXIDE 13 MMOL/L (21-32)
[2022-08-24 17:29] LABS: BILIRUBIN,TOTAL 0.3 MG/DL (0.1-1.0)
[2022-08-24 17:30] LABS: ALKALINE PHOSPHATASE 69 U/L (40-136)
[2022-08-24 17:31] LABS: CREATININE SERUM 1.81 MG/DL (0.60-1.30); GFR ESTIMATED 29
[2022-08-24 17:32] LABS: BUN/CREATININE RATIO 15
[2022-08-24 17:33] LABS: ALANINE AMINOTRANSFERASE 9 U/L (0-55)
[2022-08-24 17:34] LABS: MAGNESIUM 1.4 MG/DL (1.6-2.4)
[2022-08-24 17:39] LABS: LYMPHOCYTES % (MANUAL) 12 %; NEUTROPHILS % (MANUAL) 84 %
[2022-08-24 17:40] LABS: MONOCYTES % (MANUAL) 4 %; PLATELET CLUMPS OCCASIONAL; RBC MORPH NORMAL
[2022-08-24] MEDS ORDERED: MAGNESIUM 1 GM/100 ML IVPB 100 ML IV ONE (18:00)
[2022-08-24 18:16] LABS: INR 1.1 (0.8-1.4); PROTHROMBIN TIME PATIENT 14.6 SEC (12.2-14.7)
[2022-08-24] MEDS ORDERED: hydrOXYzine (VISTARIL/ATARAX) 25 MG capsule/tablet PO ONE (20:15)
[2022-08-24 20:25] VITALS: BP 146/66
== END 2022-08-24 20:25 | disposition short-term general hospital (02) ==
LOC: EDUNIT# 16:40 → ER 16:41
DX: I24.9 Acute ischemic heart disease, unspecified (principal); I25.10 Atherosclerotic heart disease of native coronary artery without angina pectoris; I25.2 Old myocardial infarction; I10 Essential (primary) hypertension; G45.9 Transient cerebral ischemic attack, unspecified; E83.42 Hypomagnesemia; R79.89 Other specified abnormal findings of blood chemistry; F17.210 Nicotine dependence, cigarettes, uncomplicated; Z95.9 Presence of cardiac and vascular implant and graft, unspecified
CPT/HCPCS: 36415; 71045; 80053; 83735; 83874; 84484; 85007; 85027; 85610; 85730; 93041

== ENCOUNTER 2022-12-25 12:18 | Observation (INO) | payer MEDICARE, MEDICAID ==
[~2022-12-25] VITALS: Ht 149 cm; Wt 41.2 kg
[~2022-12-25 12:18] MED LIST changes: +HYDR200T71 PO; +POTA-330 PO; -POTA-51 PO
--- NOTE | 2022-12-25 12:56 | ED Cardiac General ---
History of Present Illness General Chief Complaint: Cardiac/General Problems Stated Complaint: HYPOTENSION Nursing Triage Note: PT ARRIVES TO ER VIA EMS FROM [facility]. PT REPORTS SOB X 2 WEEKS, WORSE WITH ANY TYPE OF EXERTION. ALSO REPORTS N/V/D, PRODUCTIVE COUGH WITH WHITE SPUTUM. REPORTS AT CLINIC TODAY PT WAS HYPOTENSIVE. EMS REPORTS INITIAL BP OF 93/58, THEN 70/44, PLACED PT IN [place], INCREASED TO 109/52. PT WAS GIVEN ZOFRAN 8 MG ODT AT CLINIC. Source: patient Exam Limitations: no limitations History of Present Illness Date Seen by Provider: Dec 25, 2022 Time Seen by Provider: 12:55 Initial Comments Eugenio is a 77-year-old with a history of COPD, continues to smoke presents to the emergency room by EMS from [facility] with low blood pressure, nausea vomiting generalized malaise, weakness, increased cough productive of foamy sputum. She states symptoms have been ongoing for at least a week to 10 days. She states she has not really taken anything for her symptoms at home - "to hard to get to the store or clinic". Has not been able to eat or drink due to the nausea in the last 2 to 3 days. Is dizzy with getting up and around. Normally ambulates with a walker. She does not wear home oxygen. She does not use inhalers. She denies known fevers but has been chilled. She has mild sore thr oat. She thinks due to the cough and vomiting. Denies chest pain. Denies burning with urination. She states the diarrhea is intermittent. No swelling in her legs. No cramping in her calves. She is chronically anticoagulated on eliquis. Per report of EMS her blood pressure was in the 70s at [facility]. She has a history of CAD on aspirin. Had attempts at [facility] x2 in June that were unsuccessful by Dr Olvera. 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 ASA po LOG YARD DERRICK OPERATOR: No Associated Systoms: Cough, Loss of Appetite, Malaise, Nausea/Vomiting, Shortness of Air, Weakness Allergies and Home Medications Allergies Coded Allergies: No Known Drug Allergies (Verified , 06/10/22) Patient Home Medication List Home Medication List Reviewed: Yes Amlodipine Besylate (Amlodipine Besylate) 10 Mg Tablet, 10 MG PO DAILY, (Reported) Entered as Reported by: MARIA ESTHER CATALAN on 12/26/221358 Last Action: Reviewed Apixaban (Eliquis) 2.5 Mg Tablet, 2.5 MG PO BID, (Reported) Entered as Reported by: KETURAH FLORES on 01/24/20 1422 Last Action: Reviewed Atorvastatin Calcium (Atorvastatin Calcium) 80 Mg Tablet, 80 MG PO DAILY, (Reported) Entered as Reported by: MARIA ESTHER CATALAN on 12/26/221358 Last Action: Reviewed Clopidogrel Bisulfate (Clopidogrel) 75 Mg Tablet, 75 MG PO DAILY, (Reported) Entered as Reported by: MARIA ESTHER CATALAN on 12/26/221358 Last Action: Reviewed Gabapentin (Gabapentin) 100 Mg Capsule, 100 MG PO TID PRN for PAIN-BREAKTHROUGH, (Reported) Entered as Reported by: MARIA ESTHER CATALAN on 12/26/221358 Last Action: Reviewed Hydrochlorothiazide (Hydrochlorothiazide) 25 Mg Tablet, 25 MG PO DAILY, (Reported) Entered as Reported by: MARIA ESTHER CATALAN on 12/26/221358 Last Action: Reviewed Hydrocodone/Acetaminophen (Hydrocodone-Acetamin 7.5-325) 7.5 Mg-325 Mg Tablet, 1 EACH PO TID PRN for PAIN-MODERATE (5-7), (Reported) Entered as Reported by: MARIA ESTHER CATALAN on 07/17/22 1453 Last Action: Reviewed Metoprolol Succinate (Metoprolol Succinate) 25 Mg Tab.er.24h, 25 MG PO DAILY, (Reported) Entered as Reported by: MARIA ESTHER CATALAN on 12/26/221358 Last Action: Reviewed Nitroglycerin (Nitroglycerin) 0.4 Mg Tab.subl, 0.4 MG PO UD PRN for CHEST PAIN (ANGINA), (Reported) Entered as Reported by: MARIA ESTHER CATALAN on 07/11/20 1120 Last Action: Reviewed Prednisone (Prednisone) 10 Mg Tab, 10 MG PO DAILY, (Reported) Entered as Reported by: MIGUEL ANGEL BERMUDEZ on 07/16/18 0834 Last Action: Reviewed Discontinued Medications Amlodipine Besylate (Amlodipine Besylate) 10 Mg Tablet, 10 MG PO DAILY Discontinued Reason: No Longer Taking Prescribed by: TATY ENGLE on 07/19/22 1016 Last Action: Discontinued Atorvastatin Calcium (Lipitor) 40 Mg Tablet, 40 MG PO HS Discontinued Reason: No Longer Taking Prescribed by: TATY ENGLE on 07/19/22 1016 Last Action: Discontinued Clopidogrel Bisulfate (Clopidogrel) 75 Mg Tablet, 75 MG PO DAILY Discontinued Reason: No Longer Taking Prescribed by: TATY ENGLE on 07/19/22 1016 Last Action: Discontinued Doxazosin Mesylate (Doxazosin Mesylate) 1 Mg Tablet, 1 MG PO HS Discontinued Reason: No Longer Taking Prescribed by: TATY ENGLE on 07/19/22 1016 Last Action: Discontinued Metoprolol Succinate (Metoprolol Succinate) 50 Mg Tab.er.24h, 50 MG PO DAILY Discontinued Reason: No Longer Taking Prescribed by: TATY ENGLE on 07/19/22 1016 Last Action: Discontinued Vilazodone Hydrochloride (Viibryd) 40 Mg Tablet, 40 MG PO DAILY, (Reported) Discontinued Reason: No Longer Taking Entered as Reported by: MARIA ESTHER CATALAN on 07/17/22 1453 Last Action: Discontinued Review of Systems Review of Systems Constitutional: see HPI, malaise, weakness EENTM: See HPI, Throat Pain Respiratory: Cough, Shortness of Air Cardiovascular: No Symptoms Reported Gastrointestinal: Diarrhea, Nausea, Poor Appetite, Vomiting Genitourinary: No Symptoms Reported Musculoskeletal: no symptoms reported Skin: no symptoms reported Psychiatric/Neurological: No Symptoms Reported All Other Systems Reviewed Negative Unless Noted: Yes Past Hbgosgy-Cgiajo-Lyyafi Hx Patient Social History Tobacco Use?: Yes Tobacco type used: Cigarettes Smoking Status: Current Everyday Smoker Use of E-Cig and/or Vaping dev: No Substance type: Marijuana Substance frequency: Once in a while Alcohol Use?: No Pt feels they are or have been: Yes Immunizations Up To Date Tetanus Booster (TDap): Less than 5yrs PED Vaccines UTD: No First/Initial COVID19 Vaccinat: RECEIVED, UNK WHEN Second COVID19 Vaccination Rod: X3 Third COVID19 Vaccination Date: X3 COVID19 Vaccine 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 Seasonal Allergies Seasonal Allergies: No Past Medical History Surgery/Hospitalization HX: LUPUS, HTN, MS, STROKE, ARTHRITIS CARDIAC STENT Surgeries: Yes (MODIFIED RADICAL VULVECTOMY 1991/CHOLECYSTECTOMY;CARDIAC CATHS-STENT X 1) Abdominal, Adenoidectomy, Cardiac, Coronary Stent, Gallbladder, Hysterectomy, Oophorectomy, Orthopedic, Tonsillectomy Respiratory: Yes (REFUSES TO WEAR CPAP) Pneumonia, Sleep Apnea Currently Using CPAP: No Currently Using BIPAP: No Cardiac: Yes (HX AORTIC/RENAL ART THROMBUS;GANGRENE/TOES;V- TACH;BRADYCARDIA;ASVD) Coronary Artery Disease, Heart Attack, High Cholesterol, Hypertension, Irregular Heartbeat Neurological: Yes (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) Neuropathy, Stroke, TIA 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 Disorders: Yes (HX OF CERVICAL AND VULVAR CA--MODIFIED RADICAL VULVECTOMY 1991;HYST/BSO) 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 Disorders: 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, 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 Sexually Transmitted Disease: No HIV/AIDS: No Genitourinary: Yes (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) Bladder Infection, Renal Failure Gastrointestinal: Yes (S/P CHOLECYSTECTOMY) Gastroesophageal Reflux, Chronic Diarrhea, Hiatal Hernia, Gall Bladder Disease Musculoskeletal: Yes (GANGRENE OF TOES-TX WITH ANTIBIOTICS; ISCHEMIC FOOT ULCER) Arthritis, Fibromyalgia Endocrine: Yes Lupus HEENT: No Loss of Vision: Left Hearing Impairment: Denies Cancer: Yes Cervical, Vaginal Did You Recieve Any Treatments: Yes What Type of Treatment Did You: Chemotherapy, Radiation, Surgical Intervention Psychosocial: Yes Anxiety Integumentary: Yes (History of "gangrene" of the toes.; ISCHEMIC FOOT ULCER) Blood Disorders: No Adverse Reaction/Blood Tranf: No Family Medical History Arthritis 19 FATHER 19 MOTHER Cardiovascular disease 19 MOTHER Completed stroke 19 MOTHER maternal grandmother Congenital heart disease 19 MOTHER Diabetes mellitus 19 MOTHER maternal grandmother Hypercholesterolemia 19 MOTHER maternal grandmother Hypertension 19 MOTHER maternal grandmother Myocardial infarction maternal grandmother Tuberculosis paternal great grandfather No Pertinent Family Hx, Heart Disease, Diabetes, Stroke Physical Exam Vital Signs Vital Signs - First Documented 12/25/22 12:18 Temp 36.6 Pulse 80 Resp 16 B/P (MAP) 114/92 (99) Pulse Ox 99 O2 Delivery Room Air Capillary Refill : Height, Weight, BMI Height: 5'0.00" Weight: 161lbs. 0oz. 73.700990lp; 18.00 BMI Method:Stated General Appearance: No Apparent Distress, Chronically ill HEENT: PERRL/EOMI, Pharyngeal Erythema, Other (dry oral mucosa) Neck: Full Range of Motion Respiratory: Chest Non Tender, Normal Breath Sounds, No Accessory Muscle Use, No Respiratory Distress, Other (Barrell chested; 94% RA) Cardiovascular: Regular Rate, Rhythm Gastrointestinal: Normal Bowel Sounds, Non Tender, Soft Extremity: Normal Inspection, Normal Range of Motion, Non Tender, No Pedal Edema Neurologic/Psychiatric: Alert, Oriented x3, No Motor/Sensory Deficits, Normal Mood/Affect Skin: Normal Color, Warm/Dry, Other (poor skin turgor) Focused Exam Lactate Level 12/25/22 13:11: Lactic Acid Level 1.97 Lactic Acid Level Laboratory Tests Test 12/25/22 13:11 Lactic Acid Level 1.97 MMOL/L (0.50-2.00) Progress/Results/Core Measures Results/Orders Lab Results Laboratory Tests Test 12/25/22 12:25 12/25/22 12:29 12/25/22 13:11 12/25/22 13:43 Range/Units White Blood Count 9.6 4.3-11.0 10^3/uL Red Blood Count 4.50 3.80-5.11 10^6/uL Hemoglobin 11.0 L 11.5-16.0 g/dL Hematocrit 36 35-52 % Mean Corpuscular Volume 80 80-99 fL Mean Corpuscular Hemoglobin 24 L 25-34 pg Mean Corpuscular Hemoglobin Concent 31 L 32-36 g/dL Red Cell Distribution Width 17.2 H 10.0-14.5 % Platelet Count 361 130-400 10^3/uL Mean Platelet Volume 10.8 9.0-12.2 fL Immature Granulocyte % (Auto) 1 % Neutrophils (%) (Auto) 76 H 42-75 % Lymphocytes (%) (Auto) 17 12-44 % Monocytes (%) (Auto) 6 0-12 % Eosinophils (%) (Auto) 0 0-10 % Basophils (%) (Auto) 0 0-10 % Neutrophils # (Auto) 7.3 1.8-7.8 10^3/uL Lymphocytes # (Auto) 1.6 1.0-4.0 10^3/uL Monocytes # (Auto) 0.6 0.0-1.0 10^3/uL Eosinophils # (Auto) 0.0 0.0-0.3 10^3/uL Basophils # (Auto) 0.0 0.0-0.1 10^3/uL Immature Granulocyte # (Auto) 0.1 0.0-0.1 10^3/uL Prothrombin Time 14.8 H 12.2-14.7 SEC INR Comment 1.1 0.8-1.4 Activated Partial Thromboplast Time 34 24-35 SEC Sodium Level 138 135-145 MMOL/L Potassium Level 3.6 3.6-5.0 MMOL/L Chloride Level 108 H 98-107 MMOL/L Carbon Dioxide Level 15 L 21-32 MMOL/L Anion Gap 15 H 5-14 MMOL/L Blood Urea Nitrogen 25 H 7-18 MG/DL Creatinine 1.97 H 0.60-1.30 MG/DL Estimat Glomerular Filtration Rate 26 BUN/Creatinine Ratio 13 Glucose Level 88 70-105 MG/DL Calcium Level 8.6 8.5-10.1 MG/DL Corrected Calcium 9.2 8.5-10.1 MG/DL Total Bilirubin 0.9 0.1-1.0 MG/DL Aspartate Amino Transf (AST/SGOT) 18 5-34 U/L Alanine Aminotransferase (ALT/SGPT) 7 0-55 U/L Alkaline Phosphatase 181 H 40-136 U/L Total Protein 7.0 6.4-8.2 GM/DL Albumin 3.3 3.2-4.5 GM/DL SARS-CoV-2 RNA (RT-PCR) Detected H Not Detecte Lactic Acid Level 1.97 0.50-2.00 MMOL/L Urine Color YELLOW Urine Clarity SL CLOUDY Urine pH 5.5 5-9 Urine Specific [place] 1.015 L 1.016-1.022 Urine Protein 1+ H NEGATIVE Urine Glucose (UA) NEGATIVE NEGATIVE Urine Ketones NEGATIVE NEGATIVE Urine Nitrite NEGATIVE NEGATIVE Urine Bilirubin 1+ H NEGATIVE Urine Urobilinogen 1.0 < = 1.0 MG/DL Urine Leukocyte Esterase TRACE H NEGATIVE Urine RBC (Auto) NEGATIVE NEGATIVE Urine RBC NONE /HPF Urine WBC RARE /HPF Urine Squamous Epithelial Cells 5-10 /HPF Urine Crystals NONE /LPF Urine Bacteria NEGATIVE /HPF Urine Casts NONE /LPF Urine Mucus NEGATIVE /LPF Urine Culture Indicated NO Micro Results Microbiology 12/25/22 Urine Culture - Final, Complete Mixed Bacterial Taya See Comments 12/25/22 Blood Culture - Preliminary, Resulted 12/25/22 Blood Culture - Preliminary, Resulted My Orders Orders - ERIC MILTON MD Cbc And Automated Diff (12/25/22 13:03) Comprehensive Metabolic Panel (12/25/22 13:03) Blood Culture (12/25/22 13:03) Sputum Culture (12/25/22 13:03) Urinalysis (12/25/22 13:03) Urine Culture (12/25/22 13:03) Protime With Inr (12/25/22 13:03) Partial Thromboplastin Time (12/25/22 13:03) Chest 1 View, Ap/Pa Only (12/25/22 13:03) Ed Iv/Invasive Line Start (12/25/22 13:03) Ed Iv/Invasive Line Start (12/25/22 13:03) Vital Signs Adult Sepsis Patie Q15M (12/25/22 13:03) O2 (12/25/22 13:03) Remove Rings In Anticipation O (12/25/22 13:03) Lactic Acid Analyzer (12/25/22 13:03) Covid 19 Inhouse Test (12/25/22 13:48) Ns Iv 1000 Ml (Ns Iv 1000 Ml) (12/25/22 14:45) Ondansetron Injection (Ondansetron Inj (12/25/22 14:45) Ed Admission (Communication) (12/25/22 15:42) Vital Signs/I&O 12/25/22 12/25/22 12/25/22 12:18 13:53 15:17 Temp 36.6 Pulse 80 68 75 Resp 16 16 B/P (MAP) 114/92 (99) 114/87 (96) 102/54 Pulse Ox 99 98 98 O2 Delivery Room Air Room Air Room Air Blood Pressure Mean: 99 Progress Progress Note : Time: 14:48 Progress Note Patient seen and evaluated by me. Evaluation today includes physical exam, CBC, Chem-12, blood cultures, lactic acid, coags, urinalysis, urine cultures, COVID test, single view chest x-ray. Pertinent physical exam findings elderly appearing female in no acute distress but does have dry oral mucosa. Clear lungs, regular heart rhythm, vital signs stable currently. Her abdomen is soft mildly tender in the suprapubic region. She has poor skin turgor. No lower extremity edema. Mentating normally, no focal neurologic deficits. Differential diagnosis includes COPD exacerbation, bronchitis/pneumonia, viral syndrome/COVID, urinary tract infection, gastroenteritis. Labs independently reviewed and interpreted by me. Her CBC is shows a white count of 9.6 with hemoglobin of 11 hematocrit 36, platelets of 361. She has 76% segmented neutrophils. Her Chem-12 is pertinent for a CO2 that is low at 15. BUN and creatinine of 25 and 1.97. Her lactic acid is 1.97. PT slightly elevated at 14.8, INR 1.1, PTT of 34. Urinalysis does not reveal any evidence of infection. Her COVID test is POSITIVE. Chest x-ray shows no consolidative infiltrate. She is treated in the emergency department with 4 mg of IV Zofran as well as a liter of IV fluids. As she is not wheezing nor hypoxic at this time I held off on breathing treatments. She is speaking in complete sentences and shows no signs of respiratory distress. As she has been sick for a week to 2 weeks it is hard to know at what point she became COVID-positive therefore steroids/Paxlovid considered but not administered. The fact that she is so dehydrated and weak means that she is not a candidate for Paxlovid due to need for admission and fluid resuscitation. I discussed admission with the patient, as she lives alone she is comfortable with this. I spoke with Dr. Mosquera, hospitalist on [facility] who accepts the patient for admission. Diagnostic Imaging Diagonstic Imaging: Xray Plain Films/CT/US/NM/MRI: chest Comments [facility], [place] NAME: EUGENIO PARKER [facility] REC#: [id number] PT STATUS: REG ER : 1945 PHYSICIAN: ERIC MILTON MD ADMIT DATE: 12/25/22/ER Draft Date of Exam:12/25/22 CHEST 1 VIEW, AP/PA ONLY INDICATION: Cough and shortness of breath for two weeks. TIME OF EXAM: 01:33 p.m. COMPARISON: Correlation is made with prior chest from 08/24/2022. FINDINGS: Heart is enlarged but stable. Lungs appear clear. No infiltrates are detected. There is no effusion or pneumothorax. Right convexity thoracic scoliotic curvature is noted. IMPRESSION: No acute cardiopulmonary process is detected. Dictated on workstation # [id number] Dict: 12/25/22 1336 Trans: 12/25/22 1338 [id number] Interpreted by: NARCISO VELACSO MD Electronically signed by: Departure Communication (Admissions) Time/Spoke to Admitting Phy: 14:[address] Mosquera - Hospitalist [facility] Impression Primary Impression: COVID-19 Additional Impressions: Dehydration Acute on chronic kidney failure Qualified Codes: N17.9 - Acute kidney failure, unspecified; N18.9 - Chronic kidney disease, unspecified Disposition: 09 ADMITTED INPATIENT Condition: Stable Admissions Decision to Admit Reason: Admit from ER (General) Decision to Admit/Date: Dec 25, 2022 Time/Decision to Admit Time: 14:48 Departure-Patient Inst. Referrals: MARIAE STHER SABILLON DO (PCP/Family) Primary Care Physician ERIC MILTON MD Dec 25, 2022 12:56
[2022-12-25 13:11] LABS: BASOPHILS % (AUTO) 0 % (0-10); EOSINOPHILS % (AUTO) 0 % (0-10); HEMATOCRIT 36 % (35-52); LYMPHOCYTES # (AUTO) 1.6 10^3/uL (1.0-4.0); LYMPHOCYTES % (AUTO) 17 % (12-44); MEAN CORPUSCULAR HEMOGLOBIN 24 pg (25-34); MEAN CORPUSCULAR HGB CONC 31 g/dL (32-36); MEAN CORPUSCULAR VOLUME 80 fL (80-99); MEAN PLATELET VOLUME 10.8 fL (9.0-12.2); MONOCYTES # (AUTO) 0.6 10^3/uL (0.0-1.0); MONOCYTES % (AUTO) 6 % (0-12); NEUTROPHILS # (AUTO) 7.3 10^3/uL (1.8-7.8); NEUTROPHILS % (AUTO) 76 % (42-75); PLATELET COUNT 361 10^3/uL (130-400); WHITE BLOOD COUNT 9.6 10^3/uL (4.3-11.0)
[2022-12-25 13:15] LABS: ALBUMIN 3.3 GM/DL (3.2-4.5); POTASSIUM 3.6 MMOL/L (3.6-5.0)
[2022-12-25 13:16] LABS: CALCIUM 8.6 MG/DL (8.5-10.1)
[2022-12-25 13:19] LABS: BILIRUBIN,TOTAL 0.9 MG/DL (0.1-1.0)
[2022-12-25 13:21] LABS: CREATININE SERUM 1.97 MG/DL (0.60-1.30)
[2022-12-25 13:27] LABS: INR 1.1 (0.8-1.4); PROTHROMBIN TIME PATIENT 14.8 SEC (12.2-14.7)
--- NOTE | 2022-12-25 13:39 | Diagnostic Imaging Report ---
INDICATION: Cough and shortness of breath for two weeks. TIME OF EXAM: 01:33 p.m. COMPARISON: Correlation is made with prior chest from 08/24/2022. FINDINGS: Heart is enlarged but stable. Lungs appear clear. No infiltrates are detected. There is no effusion or pneumothorax. Right convexity thoracic scoliotic curvature is noted. IMPRESSION: No acute cardiopulmonary process is detected. Dictated by: Dictated on workstation # [id number]
[2022-12-25 14:00] LABS: CLARITY,URINE SL CLOUDY; COLOR,URINE YELLOW; PH,URINE 5.5 (5-9)
[2022-12-25 14:01] LABS: BACTERIA,URINE NEGATIVE /HPF; BILIRUBIN,URINE 1+ (NEGATIVE); GLUCOSE, URINE (UA) NEGATIVE (NEGATIVE); KETONES,URINE NEGATIVE (NEGATIVE); LEUKOCYTE ESTERASE ,URINE TRACE (NEGATIVE); NITRITE,URINE NEGATIVE (NEGATIVE); PROTEIN,URINE 1+ (NEGATIVE); WBC,URINE RARE /HPF
[2022-12-25] MEDS ORDERED: ONDANSETRON INJECTION 4 MG/2 ML (SDV) IVP ONE (14:45)
[2022-12-25] MEDS ORDERED: NS IV 1000 ML 1,000 ML IV STA (14:45)
[2022-12-25] MEDS ORDERED: MELATONIN 3 MG TABLET PO PRN (16:30)
[2022-12-25] MEDS ORDERED: diphenhydrAMINE 25 MG TABLET PO PRN (16:30)
[2022-12-25] MEDS ORDERED: LACTULOSE SYRUP 10GM/15ML 30ML UDC PO PRN (16:30)
[2022-12-25] MEDS ORDERED: ONDANSETRON INJECTION 4 MG/2 ML (SDV) IV PRN (16:30)
[2022-12-25] MEDS ORDERED: diphenhydrAMINE INJ 50 MG/ML VIAL IVP PRN (16:30)
[2022-12-25] MEDS ORDERED: MILK OF MAGNESIA 400 MG/5 ML 30 ML UDC PO PRN (16:30)
[2022-12-25] MEDS ORDERED: ANTACID SUSPENSION 30 ML UDC PO PRN (16:30)
[2022-12-25] MEDS ORDERED: morphine INJ 4 MG/ML 1 ML (VIAL/SYRINGE) IV PRN (16:30)
[2022-12-25] MEDS ORDERED: ENOXAPARIN 40 MG/0.4 ML SYRINGE SC SCH (16:30)
[2022-12-25] MEDS ORDERED: CALCIUM CARBONATE 500 MG CHEW TABLET PO PRN (16:30)
[2022-12-25] MEDS ORDERED: ONDANSETRON 4 MG ORAL DISSOLVE TABLET PO PRN (16:30)
[2022-12-25] MEDS ORDERED: BISACODYL 10 MG SUPPOSITORY PR PRN (16:30)
[2022-12-25 16:45] VITALS: BP 102/54
--- NOTE | 2022-12-25 16:50 | History & Physical ---
History of Present Illness HPI/Chief Complaint CC: COVID HPI: This is a 77yoWF clinic patient of [facility] who has a h/o COPD O2 dependent who presents to the ER from EMS transport from [facility] clinic with complaints of dizziness and noted to be hypotensive. IVF given in ER and w/u revealed acute on on CKD failure. Currently she is in isolation for COVID. Source: patient, old records Exam Limitations: no limitations Date Seen 12/25/22 Time Seen by a Provider: 18:00 Attending Physician Sahil Us DO PCP Admitting Physician: Slime Mosquera DO Attending Physician: Slime Mosquera DO Referring Physician Date of Admission Dec 25, 2022 at 15:47 Home Medications & Allergies Home Medications Reviewed patient Home Medication Reconciliation performed by pharmacy medication reconciliations mathematics technician and/or nursing. Patients Allergies have been reviewed. Allergies Allergies Coded Allergies No Known Drug Allergies (Verified06/10/22) Past Neivafo-Kpcimj-Mzhgpg Hx Past Med/Social Hx: Reviewed Nursing Past Med/Soc Hx, Reviewed and Corrections made Patient Social History Marrital Status: single Employed/Student: retired Smoking Status: Current Everyday Smoker Type Used: Cigarettes 2nd Hand Smoke Exposure: Yes Recent Hopitalizations: No Immunizations Up To Date Tetanus Booster (TDap): Less than 5yrs Pediatric: No Date of Pneumonia Vaccine: Feb 21, 2019 Date of Influenza Vaccine: Feb 11, 2020 Seasonal Allergies Seasonal Allergies: No Past Medical History Surgeries: Abdominal, Adenoidectomy, Cardiac, Coronary Stent, Gallbladder, Hysterectomy, Oophorectomy, Orthopedic, Tonsillectomy Respiratory: COPD Currently Using CPAP: No Currently Using BIPAP: No Cardiac: Coronary Artery Disease, Heart Attack, High Cholesterol, Hypertension, Irregular Heartbeat Neurological: Neuropathy, Stroke, TIA 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: Yes (HX OF CERVICAL AND VULVAR CA--MODIFIED RADICAL VULVECTOMY 1991;HYST/BSO) Sexually Transmitted Disease: No HIV/AIDS: No 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 Disorders: Denies Hysterectomy, Menopausal Genitourinary: Bladder Infection, Renal Failure Gastrointestinal: Gastroesophageal Reflux, Chronic Diarrhea, Hiatal Hernia, G all Bladder Disease Musculoskeletal: Arthritis, Fibromyalgia Endocrine: Lupus Loss of Vision: Left Hearing Impairment: Denies Cancer: Cervical, Vaginal Did You Recieve Any Treatments: Yes What Type of Treatment Did You: Chemotherapy, Radiation, Surgical Intervention Psychosocial: Anxiety History of Blood Disorders: No Adverse Reaction to Blood [place]: No Family History Arthritis 19 FATHER 19 MOTHER Cardiovascular disease 19 MOTHER Completed stroke 19 MOTHER maternal grandmother Congenital heart disease 19 MOTHER Diabetes mellitus 19 MOTHER maternal grandmother Hypercholesterolemia 19 MOTHER maternal grandmother Hypertension 19 MOTHER maternal grandmother Myocardial infarction maternal grandmother Tuberculosis paternal great grandfather No Pertinent Family Hx, Heart Disease, Diabetes, Stroke Review of Systems Constitutional: see HPI, dizziness, malaise, weakness EENTM: no symptoms reported Respiratory: dyspnea on exertion, short of breath Cardiovascular: no symptoms reported Gastrointestinal: no symptoms reported Genitourinary: decreased output Musculoskeletal: no symptoms reported Skin: no symptoms reported Psychiatric/Neurological: No Symptoms Reported All Other Systems Reviewed Negative Unless Noted: Yes Physical Exam Physical Exam Vital Signs Vital Signs - First Documented 12/25/22 12/25/22 12:18 16:45 Temp 36.6 Pulse 80 Resp 16 B/P (MAP) 114/92 (99) Pulse Ox 99 O2 Delivery Room Air FiO2 21 Capillary Refill : Height, Weight, BMI Height: 5'0.00" Weight: 161lbs. 0oz. 73.750250ii; 18.00 BMI Method:Stated General Appearance: No Apparent Distress, Chronically ill HEENT: PERRL/EOMI, Pharyngeal Erythema, Other (dry oral mucosa) Neck: Full Range of Motion Respiratory: Chest Non Tender, Normal Breath Sounds, No Accessory Muscle Use, No Respiratory Distress, Decreased Breath Sounds, Other (Barrell chested; 94% RA) Cardiovascular: Regular Rate, Rhythm Gastrointestinal: Normal Bowel Sounds, Non Tender, Soft Extremity: Normal Inspection, Normal Range of Motion, Non Tender, No Pedal Edema Neurologic/Psychiatric: Alert, Oriented x3, No Motor/Sensory Deficits, Normal Mood/Affect Skin: Normal Color, Warm/Dry, Other (poor skin turgor) Results Results/Procedures Labs Laboratory Tests 12/25/22 12:25 Patient resulted labs reviewed. Assessment/Plan Admission Diagnosis Assessment: Hypotension from dehydration and COVID Acute on chronic hypoxic respiratory failure HTN HLP COPD O2 dependent Smoker Plan: Monitor closely IVF gently O2 Home meds Admission Status: Observation Clinical Quality Measures AMI/AHF: ASA po Prior to arrival: SLIME Jessica DO Dec 25, 2022 16:50
[2022-12-25 16:58] VITALS: BP 130/67
[2022-12-25] MEDS ORDERED: RT-Ipratropium/Albuterol NEB 3 ML VIAL INH PRN (17:00)
[2022-12-25] MEDS ORDERED: FLU HIGH DOSE (65+ YOA) 240 MCG/0.7 ML 2023-24 (FLUZONE) IM ONE (17:30)
[2022-12-25] MEDS: NS IV 1000 ML 1,000 ML IV SCH (17:32)
[2022-12-25] MEDS: guaiFENesin/CODEINE 10ML UDC PO SCH ×2 (17:35→19:46)
[2022-12-25] MEDS: ENOXAPARIN 30 MG/0.3 ML SYRINGE SC SCH (17:35)
[2022-12-25] MEDS: DOCUSATE SODIUM 100 MG CAPSULE PO SCH (19:45)
[2022-12-25] MEDS: SENNOSIDES 8.6 MG TABLET PO SCH (19:45)
[2022-12-25 19:51] VITALS: BP 118/68
[2022-12-25] MEDS ORDERED: RT-Ipratropium/Albuterol NEB 3 ML VIAL INH SCH (21:00)
[2022-12-25] MEDS: ACETAMINOPHEN 325 MG TABLET PO PRN (22:21)
[2022-12-25 23:18] VITALS: BP 145/76
[2022-12-26] MEDS: guaiFENesin/CODEINE 10ML UDC PO SCH ×6 (00:50→20:17)
[2022-12-26 04:28] VITALS: BP 112/70
[2022-12-26 05:53] LABS: BASOPHILS % (AUTO) 0 % (0-10); EOSINOPHILS # (AUTO) 0.1 10^3/uL (0.0-0.3); EOSINOPHILS % (AUTO) 2 % (0-10); HEMATOCRIT 29 % (35-52); HEMOGLOBIN 9.1 g/dL (11.5-16.0); LYMPHOCYTES % (AUTO) 27 % (12-44); MEAN CORPUSCULAR HEMOGLOBIN 25 pg (25-34); MEAN CORPUSCULAR HGB CONC 31 g/dL (32-36); MEAN CORPUSCULAR VOLUME 80 fL (80-99); MEAN PLATELET VOLUME 10.5 fL (9.0-12.2); MONOCYTES # (AUTO) 0.6 10^3/uL (0.0-1.0); MONOCYTES % (AUTO) 7 % (0-12); NEUTROPHILS # (AUTO) 4.7 10^3/uL (1.8-7.8); NEUTROPHILS % (AUTO) 63 % (42-75); PLATELET COUNT 236 10^3/uL (130-400); WHITE BLOOD COUNT 7.4 10^3/uL (4.3-11.0)
[2022-12-26 06:11] LABS: ALBUMIN 2.6 GM/DL (3.2-4.5)
[2022-12-26 06:12] LABS: POTASSIUM 3.6 MMOL/L (3.6-5.0)
[2022-12-26 06:13] LABS: CALCIUM 7.6 MG/DL (8.5-10.1)
[2022-12-26 06:14] LABS: TOTAL PROTEIN 5.5 GM/DL (6.4-8.2)
[2022-12-26 06:16] LABS: BILIRUBIN,TOTAL 0.5 MG/DL (0.1-1.0)
[2022-12-26 06:17] LABS: CREATININE SERUM 1.67 MG/DL (0.60-1.30)
[2022-12-26] MEDS: NS IV 1000 ML 1,000 ML IV SCH ×2 (06:29→20:17)
[2022-12-26 08:18] VITALS: BP 122/70
[2022-12-26] MEDS: SENNOSIDES 8.6 MG TABLET PO SCH ×2 (08:47→20:24)
[2022-12-26] MEDS: DOCUSATE SODIUM 100 MG CAPSULE PO SCH ×2 (08:47→20:24)
[2022-12-26] MEDS: oxyCODONE IMMEDIATE RELEASE 5 MG TABLET PO PRN ×2 (09:00→14:32)
[2022-12-26] MEDS: RT-ALBUTEROL HFA 8.5 GM INHALER IH SCH ×3 (10:00→21:44)
[2022-12-26 11:30] VITALS: BP 125/75
[2022-12-26] MEDS ORDERED: AMLO-251 PO (13:59)
[2022-12-26] MEDS ORDERED: MTP25TSR PO (13:59)
[2022-12-26] MEDS ORDERED: GABA-486 PO (13:59)
[2022-12-26] MEDS ORDERED: CLOP75TA28 PO (13:59)
[2022-12-26] MEDS ORDERED: ATOR80TA76 PO (13:59)
[2022-12-26] MEDS ORDERED: HYDR25TA4 PO (13:59)
--- NOTE | 2022-12-26 14:10 | Progress Note ---
JOSAFAT ZAMARRIPA MD,RESIDENT 12/26/22 1410: Subjective HPI/CC On Admission Date Seen by Provider: Dec 26, 2022 Time Seen by Provider: 07:00 CC: COVID HPI: This is a 77yoWF clinic patient of [facility] who has a h/o COPD O2 dependent who presents to the ER from EMS transport from [facility] clinic with complaints of dizzine ss and noted to be hypotensive. IVF given in ER and w/u revealed acute on on CKD failure. Currently she is in isolation for COVID. Subjective/Events-last exam No acute events overnight. Pt reports not feeling well today. C/o sore throat and generalized weakness. She reports not having a large appetite but consumes orange juice throughout the day. Denies N/V/D, SOB, CP. Focused Exam Lactate Level 12/25/22 13:11: Lactic Acid Level 1.97 Objective Exam Vital Signs Vital Signs Date Time Temp Pulse Resp B/P (MAP) Pulse Ox O2 Delivery O2 Flow Rate FiO2 12/26/22 12:51 81 12/26/22 11:30 36.8 17 125/75 (92) 97 Room Air 12/25/22 16:45 21 Capillary Refill : General Appearance: No Apparent Distress HEENT: Pharynx Normal Neck: Non Tender Respiratory: Chest Non Tender, No Accessory Muscle Use, No Respiratory Distress, Other (Coarse breathsounds) Cardiovascular: Regular Rate, Rhythm Gastrointestinal: Non Tender, Soft Neurologic/Psychiatric: Alert, Oriented x3, Normal Mood/Affect Skin: Warm/Dry Results/Procedures Lab Laboratory Tests 12/26/22 05:40 Patient resulted labs reviewed. Assessment/Plan Assessment and Plan Assess & Plan/Chief Complaint Assessment: Hypotension from dehydration and COVID Acute on chronic hypoxic respiratory failure HTN HLP COPD O2 dependent Smoker Plan: Monitor closely IVF gently O2 as needed Home meds PT Diagnosis/Problems Diagnosis/Problems (1) COVID-19 Status: Acute (2) Acute on chronic kidney failure Status: Acute Qualifiers: Qualified Codes: N17.9 - Acute kidney failure, unspecified; N18.9 - Chronic kidney disease, unspecified (3) Generalized weakness (4) Acute hypoxic respiratory failure (5) COPD (chronic obstructive pulmonary disease) (6) Tobacco dependence Clinical Quality Measures AMI/AHF: ASA po Prior to arrival: No SERINA DEL REAL DO 12/26/22 2100: Subjective Subjective/Events-last exam Still very weak COVID + No hypoxia Cough is noted Objective Exam General Appearance: No Apparent Distress, WD/WN, Chronically ill Respiratory: Lungs Clear, Normal Breath Sounds Cardiovascular: Regular Rate, Rhythm Assessment/Plan Assessment and Plan Assess & Plan/Chief Complaint COVID isolation JOSAFAT ZAMARRIPA MD,RESIDENT Dec 26, 2022 14:10 SERNIA DEL REAL DO Dec 26, 2022 21:00
--- NOTE | 2022-12-26 14:51 | Physical Therapy Evaluation ---
PT Evaluation-General Medical Diagnosis Admission Date Dec 25, 2022 at 15:47 Medical Diagnosis: COVID Onset Date: Dec 25, 2022 Therapy Diagnosis Therapy Diagnosis: Gait deficit, strength deficit Height/Weight Height (Feet): 5 Height (Inches): 0.00 Weight (Pounds): 161 Weight (Ounces): 0 Precautions Precautions/Isolations: Airborne Isolation, Droplet Isolation, Fall Prevention, Standard Precautions Weight Bear Status Right Lower Extremity: Right Full Weight Bearing Left Lower Extremity: Left Full Weight Bearing Referral Physician: Dr. Mosquera Reason for Referral: Evaluation/Treatment Medical History Pertinent Medical History: Arthritis, CAD, Heart Failure, HTN, Neuropathy Social History Home: Apartment Current Living Status: Alone Entry Into Home: Elevator Prior Prior Level of Function SCALE: Activities may be completed with or without assistive devices. 5-Zkzibtmhjo-akubdmh completes the activity by him/herself with no assistance from a helper. 5-Set-up or Clean-up Assistance-helper sets up or cleans up; patient completes activity. [place] assists only prior to or following the activity. 4-Supervision or Touching Assistance-helper provides verbal cues and/or touching/steadying and/or contact guard assistance as patient completes activity. Assistance may be provided throughout the activity or intermittently. 3-Partial/Moderate Assistance-helper does LESS THAN HALF the effort. [place] lifts, holds or supports trunk or limbs, but provides less than half the effort. 2-Substantial/Maximal Assistance-helper does MORE THAN HALF the effort. [place] lifts or holds trunk or limbs and provides more than half the effort. 4-Vvxnctryq-yhkqhr does ALL the effort. Patient does none of the effort to complete the activity. Or, the assistance of 2 or more helpers is required for the patient to complete the activity. If activity was not attempted, code reason: 7-Patient Refused. 9-Not Applicable-not attempted and the patient did not perform the activity before the current illness, exacerbation or injury. 10-Not Attempted due to Environmental Limitations-(lack of equipment, weather restraints, etc.). 88-Not Attempted due to Medical Conditions or Safety Concerns. Bed Mobility: 6 Transfers (B,C,W/C): 6 Gait: 6 Indoor Mobility (Ambulation): Independent Stairs: Not Applicalbe Prior Devices Use: Walker Prior Device Use: FWW PT Evaluation-Current Objective Patient Orientation: Person, Place, Time, Situation Attachments: Gonzalez Catheter, IV ROM/Strength ROM Lower Extremities WFLs BLEs all planes Strength Lower Extremities 3+/5 BLEs all planes Sensory Vision: Functional Hearing: Impaired Sensation Right Lower Extremit: Impaired Sensation Left Lower Extremity: Impaired Transfers Roll Left to Right (QC): 4 Sit to Lying (QC): 4 Lying to Sitting/Side of Bed(Q: 4 Sit to Stand (QC): 4 Gait Does the Patient Walk?: Yes Mode of Locomotion: Walk Anticipated Mode of Locomotion: Walk Walk 10 feet (QC): 4 Distance: 30' Gait Assistive Device: FWW Balance Sitting Static: Fair Sitting Dynamic: Fair Standing Static: Fair Standing Dynamic: Poor Assessment/Needs Patient performs all observed bed mobility and transfers with SBA/CGA. Patient refuses gait belt stating "I don't need that", however patients poor gait, balance and poor endurance indicate she does need a gait belt at this time. She insists on using her 4WW. Patient ambulates 30' with the 4WW, with CGA and verbal cues. Patient in bed post treatment with all needs met, nursing notified, call light in reach. 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 Aircraft Goals PT Line Assembler Aircraft Goals Time Frame: Jan 18, 2023 Roll Left & Right (QC): 6 Sit to Lying (QC): 6 Lying-Sitting on Side/Bed(QC): 6 Sit to Stand (QC): 6 Chair/Asc-pu-Nbdvr Xfer(QC): 6 Toilet Transfer (QC): 6 Does the Patient Walk: Yes Walk 10 feet (QC): 6 Walk 50ft with 2 Turns (QC): 6 Walk 150 ft (QC): 6 PT Plan Problem List Problem List: Activity Tolerance ( ), Functional Strength, Safety, Balance, Gait, Transfer, Bed Mobility, ROM Treatment/Plan Treatment Plan: Continue Plan of Care Treatment Plan: Bed Mobility, Education, Functional Activity Ghada, Functional Strength, Group Therapy, Gait, Safety, Therapeutic Exercise, Transfers Treatment Duration: Feb 15, 2023 Frequency: 6 times per week Estimated Hrs Per Day: .25 hour per day Patient and/or Family Agrees t: Yes Safety Risks/Education Patient Education: Gait Training, Transfer Techniques Teaching Recipient: Patient Teaching Methods: Demonstration, Discussion Response to Teaching: Reinforcement Needed Time Time In: 1357 Time Out: 1410 DATE: Dec 26, 2022 Total Billed Treatment Time: 13 Total Billed Treatment Visit, NIKOLAS MERCADO PT Dec 26, 2022 14:51
[2022-12-26 16:48] VITALS: BP 116/66
[2022-12-26] MEDS: ENOXAPARIN 30 MG/0.3 ML SYRINGE SC SCH (17:13)
[2022-12-26 20:19] VITALS: BP 137/69
[2022-12-27] VITALS (7 sets, daily range): BP systolic 115–135; BP diastolic 54–74
[2022-12-27] MEDS: guaiFENesin/CODEINE 10ML UDC PO SCH ×6 (00:28→20:22)
[2022-12-27] MEDS: RT-ALBUTEROL HFA 8.5 GM INHALER IH SCH ×4 (02:46→21:12)
[2022-12-27] MEDS: oxyCODONE IMMEDIATE RELEASE 5 MG TABLET PO PRN ×3 (05:30→20:26)
[2022-12-27 05:47] LABS: BASOPHILS % (AUTO) 0 % (0-10); EOSINOPHILS # (AUTO) 0.1 10^3/uL (0.0-0.3); EOSINOPHILS % (AUTO) 1 % (0-10); HEMATOCRIT 31 % (35-52); HEMOGLOBIN 9.1 g/dL (11.5-16.0); LYMPHOCYTES # (AUTO) 2.5 10^3/uL (1.0-4.0); LYMPHOCYTES % (AUTO) 26 % (12-44); MEAN CORPUSCULAR HEMOGLOBIN 24 pg (25-34); MEAN CORPUSCULAR HGB CONC 30 g/dL (32-36); MEAN CORPUSCULAR VOLUME 81 fL (80-99); MEAN PLATELET VOLUME 10.6 fL (9.0-12.2); MONOCYTES # (AUTO) 0.6 10^3/uL (0.0-1.0); MONOCYTES % (AUTO) 7 % (0-12); NEUTROPHILS # (AUTO) 6.3 10^3/uL (1.8-7.8); NEUTROPHILS % (AUTO) 65 % (42-75); PLATELET COUNT 268 10^3/uL (130-400); WHITE BLOOD COUNT 9.6 10^3/uL (4.3-11.0)
[2022-12-27 05:55] LABS: ALBUMIN 2.6 GM/DL (3.2-4.5)
[2022-12-27 05:56] LABS: POTASSIUM 3.7 MMOL/L (3.6-5.0)
[2022-12-27 05:57] LABS: CALCIUM 7.7 MG/DL (8.5-10.1)
[2022-12-27 05:58] LABS: TOTAL PROTEIN 5.8 GM/DL (6.4-8.2)
[2022-12-27 06:00] LABS: BILIRUBIN,TOTAL 0.5 MG/DL (0.1-1.0)
[2022-12-27 06:02] LABS: CREATININE SERUM 1.51 MG/DL (0.60-1.30)
[2022-12-27] MEDS: SENNOSIDES 8.6 MG TABLET PO SCH ×2 (09:08→20:20)
[2022-12-27] MEDS: DOCUSATE SODIUM 100 MG CAPSULE PO SCH ×2 (09:08→20:20)
--- NOTE | 2022-12-27 10:26 | Physical Therapy Daily Note ---
PT Daily Note-Current Subjective Patient adamantly declined to utilize the gait belt and to be OOB for meals. Pain Section J - Health Conditions 1. Rarely or not at all 2. Occasionally 3. Frequently 4. Almost constantly 8. Unable to answer Pain Effect on Sleep: 1 Pain Interference with Therapy: 1 Pain Interference w/Day-to-Day: 1 Mental Status Attachments: IV Transfers SCALE: Activities may be completed with or without assistive devices. 0-Lmscgubryy-ejevmdy completes the activity by him/herself with no assistance from a helper. 5-Set-up or Clean-up Assistance-helper sets up or cleans up; patient completes activity. [place] assists only prior to or following the activity. 4-Supervision or Touching Assistance-helper provides verbal cues and/or touching/steadying and/or contact guard assistance as patient completes activ ity. Assistance may be provided throughout the activity or intermittently. 3-Partial/Moderate Assistance-helper does LESS THAN HALF the effort. [place] lifts, holds or supports trunk or limbs, but provides less than half the effort. 2-Substantial/Maximal Assistance-helper does MORE THAN HALF the effort. [place] lifts or holds trunk or limbs and provides more than half the effort. 3-Udfpxtppb-gyachm does ALL the effort. Patient does none of the effort to complete the activity. Or, the assistance of 2 or more helpers is required for the patient to complete the activity. If activity was not attempted, code reason: 7-Patient Refused. 9-Not Applicable-not attempted and the patient did not perform the activity before the current illness, exacerbation or injury. 10-Not Attempted due to Environmental Limitations-(lack of equipment, weather restraints, etc.). 88-Not Attempted due to Medical Conditions or Safety Concerns. Sit to Lying (QC): 6 Lying to Sitting/Side of Bed(Q: 6 Sit to Stand (QC): 6 Weight Bearing Right Lower Extremity: Right Full Weight Bearing Left Lower Extremity: Left Full Weight Bearing Gait Training Distance: 150' in room Walk 10 feet (QC): 6 Walk 50 ft with 2 Turns(QC): 6 Walk 150 ft (QC): 6 Gait Assistive Device: Walker 4 Wheeled safe, slow, no deviation Assessment Patient is currently independent with all gross motor skills safely and does not require continued skilled PT. Nursing notified. PT Prison Goals Prison Goals PT Pediatric Dental Assistant Goals Time Frame: Jan 18, 2023 Roll Left & Right (QC): 6 Sit to Lying (QC): 6 Lying-Sitting on Side/Bed(QC): 6 Sit to Stand (QC): 6 Chair/Wtv-ku-Kxnfh Xfer(QC): 6 Toilet Transfer (QC): 6 Does the Patient Walk: Yes Walk 10 feet (QC): 6 Walk 50ft with 2 Turns (QC): 6 Walk 150 ft (QC): 6 PT Plan Treatment/Plan Treatment Plan: Discontinue PT, goals met, Discontinue PT Treatment Plan: Bed Mobility, Education, Functional Activity Ghada, Functional Strength, Group Therapy, Gait, Safety, Therapeutic Exercise, Transfers Treatment Duration: Feb 15, 2023 Frequency: 6 times per week Estimated Hrs Per Day: .25 hour per day Patient and/or Family Agrees t: Yes Time Time In: 945 Time Out: 955 DATE: Dec 27, 2022 Total Billed Treatment Time: 10 Total Billed Treatment 1 visit FA 10 min BE BARBOSA PT Dec 27, 2022 10:26
[2022-12-27] MEDS: NS IV 1000 ML 1,000 ML IV SCH ×2 (10:58→23:32)
--- NOTE | 2022-12-27 13:27 | Progress Note ---
JOSAFAT ZAMARRIPA MD,RESIDENT 12/27/22 1327: Subjective HPI/CC On Admission CC: COVID HPI: This is a 77yoWF clinic patient of [facility] who has a h/o COPD O2 dependent who presents to the ER from EMS transport from [facility] clinic with complaints of dizziness and noted to be hypotensive. IVF given in ER and w/u revealed acute on on CKD failure. Currently she is in isolation for COVID. Subjective/Events-last exam No acute events overnight. Pt reports feeling better, but not 100%. She does not feel well enough to go home today, will discuss discharge tomorrow. She is oxygenating well on RA, and tolerating PO. Focused Exam Lactate Level 12/25/22 13:11: Lactic Acid Level 1.97 Objective Exam Vital Signs Vital Signs Date Time Temp Pulse Resp B/P (MAP) Pulse Ox O2 Delivery O2 Flow Rate FiO2 12/27/22 12:26 73 12/27/22 11:49 37.3 19 135/67 (89) 97 Room Air 12/25/22 16:45 21 Capillary Refill : General Appearance: No Apparent Distress Neck: Non Tender, Supple Respiratory: Chest Non Tender, Lungs Clear, Normal Breath Sounds, No Accessory Muscle Use, No Respiratory Distress Cardiovascular: Regular Rate, Rhythm Gastrointestinal: Non Tender, Soft Neurologic/Psychiatric: Alert, Oriented x3, Normal Mood/Affect Skin: Warm/Dry Results/Procedures Lab Laboratory Tests 12/27/22 05:37 Patient resulted labs reviewed. 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 PT Diagnosis/Problems Diagnosis/Problems (1) COVID-19 Status: Acute (2) Acute on chronic kidney failure Status: Acute Qualifiers: Qualified Codes: N17.9 - Acute kidney failure, unspecified; N18.9 - Chronic kidney disease, unspecified (3) Generalized weakness (4) Acute hypoxic respiratory failure (5) COPD (chronic obstructive pulmonary disease) (6) Tobacco dependence Clinical Quality Measures AMI/AHF: ASA po Prior to arrival: SERINA Jessica DO 12/27/222131: Subjective HPI/CC On Admission Date Seen by Provider: Dec 27, 2022 Time Seen by Provider: 10:00 Subjective/Events-last exam Doing better Needs help at home Working with PT Objective Exam General Appearance: No Apparent Distress, WD/WN, Chronically ill Assessment/Plan Assessment and Plan Assess & Plan/Chief Complaint Supportive care IVF I personally performed the [place] portions of the visit, discussed case with resident and concur with resident documentation of history, physical exam, assessment and treatment plan unless otherwise noted. JOSAFAT ZAMARRIPA MD,RESIDENT Dec 27, 2022 13:27 SERINA DEL REAL DO Dec 27, 2022 21:32
[2022-12-27] MEDS: ENOXAPARIN 30 MG/0.3 ML SYRINGE SC SCH (16:47)
[2022-12-27] MEDS: ACETAMINOPHEN 325 MG TABLET PO PRN (20:26)
[2022-12-28] MEDS: guaiFENesin/CODEINE 10ML UDC PO SCH ×4 (00:43→13:30)
[2022-12-28] MEDS: RT-ALBUTEROL HFA 8.5 GM INHALER IH SCH ×2 (03:22→09:19)
[2022-12-28 04:06] VITALS: BP 120/65
[2022-12-28 05:52] LABS: BASOPHILS % (AUTO) 1 % (0-10); EOSINOPHILS % (AUTO) 1 % (0-10); HEMATOCRIT 27 % (35-52); LYMPHOCYTES # (AUTO) 1.1 10^3/uL (1.0-4.0); LYMPHOCYTES % (AUTO) 18 % (12-44); MEAN CORPUSCULAR HEMOGLOBIN 24 pg (25-34); MEAN CORPUSCULAR HGB CONC 30 g/dL (32-36); MEAN CORPUSCULAR VOLUME 81 fL (80-99); MEAN PLATELET VOLUME 10.6 fL (9.0-12.2); MONOCYTES # (AUTO) 0.5 10^3/uL (0.0-1.0); MONOCYTES % (AUTO) 8 % (0-12); NEUTROPHILS # (AUTO) 4.6 10^3/uL (1.8-7.8); NEUTROPHILS % (AUTO) 73 % (42-75); PLATELET COUNT 214 10^3/uL (130-400); WHITE BLOOD COUNT 6.3 10^3/uL (4.3-11.0)
[2022-12-28 06:09] LABS: ALBUMIN 2.3 GM/DL (3.2-4.5)
[2022-12-28 06:10] LABS: CALCIUM 7.2 MG/DL (8.5-10.1)
[2022-12-28 06:11] LABS: TOTAL PROTEIN 4.9 GM/DL (6.4-8.2)
[2022-12-28 06:13] LABS: BILIRUBIN,TOTAL 0.4 MG/DL (0.1-1.0)
[2022-12-28 06:15] LABS: CREATININE SERUM 1.29 MG/DL (0.60-1.30)
--- NOTE | 2022-12-28 07:02 | Progress Note ---
Subjective HPI/CC On Admission CC: COVID HPI: This is a 77yoWF clinic patient of [facility] who has a h/o COPD O2 dependent who presents to the ER from EMS transport from [facility] clinic with complaints of dizziness and noted to be hypotensive. IVF given in ER and w/u revealed acute on on CKD failure. Currently she is in isolation for COVID. Focused Exam Lactate Level 12/25/22 13:11: Lactic Acid Level 1.97 Objective Exam Vital Signs Vital Signs Date Time Temp Pulse Resp B/P (MAP) Pulse Ox O2 Delivery O2 Flow Rate FiO2 12/28/22 11:22 36.9 82 20 124/63 (83) 97 Room Air 12/25/22 16:45 21 Capillary Refill : Results/Procedures Lab Laboratory Tests 12/28/22 05:43 Patient resulted labs reviewed. 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
[2022-12-28] MEDS ORDERED: POTASSIUM CHLORIDE 20 MEQ TABLET PO ONE ×2 (07:15→09:30)
[2022-12-28 07:38] VITALS: BP 124/64
--- NOTE | 2022-12-28 09:17 | Discharge Summary ---
JOSAFAT ZAMARRIPA MD,RESIDENT 12/28/22 0917: Discharge Summary Hospital Course Was the Problem List Reviewed?: Yes Problems/Dx: (1) COVID-19 Status: Acute (2) Acute on chronic kidney failure Status: Acute Qualifiers: Qualified Codes: N17.9 - Acute kidney failure, unspecified; N18.9 - Chronic kidney disease, unspecified (3) Generalized weakness (4) Acute hypoxic respiratory failure (5) COPD (chronic obstructive pulmonary disease) (6) Tobacco dependence Hospital Course Date of Admission: Dec 25, 2022 at 15:47 Admission Diagnosis : Family Physician/Provider: Sahil Us DO Date of Discharge: 12/28/22 Discharge Diagnosis: COVID-19 Hospital Course: Pt admitted for increased SOB, dehydration, and weakness 2/2 COVID-19 infection. COVID-19 positive in ED. Pt was placed on IVF, remained on room air throughout her stay. Tolerated PO progressively well. CXR was unremarkable. Pt stable for discharge on 12/28/22. Labs and Pending Lab Test: Laboratory Tests 12/28/22 05:43: White Blood Count 6.3, Red Blood Count 3.33L, Hemoglobin 8.0L, Hematocrit 27L, Mean Corpuscular Volume 81, Mean Corpuscular Hemoglobin 24L, Mean Corpuscular Hemoglobin Concent 30L, Red Cell Distribution Width 17.2H, Platelet Count 214, Mean Platelet Volume 10.6, Immature Granulocyte % (Auto) 0, Neutrophils (%) (Auto) 73, Lymphocytes (%) (Auto) 18, Monocytes (%) (Auto) 8, Eosinophils (%) (Auto) 1, Basophils (%) (Auto) 1, Neutrophils # (Auto) 4.6, Lymphocytes # (Auto) 1.1, Monocytes # (Auto) 0.5, Eosinophils # (Auto) 0.0, Basophils # (Auto) 0.0, Immature Granulocyte # (Auto) 0.0, Sodium Level 140, Potassium Level 3.0L, Chloride Level 117H, Carbon Dioxide Level 15L, Anion Gap 8, Blood Urea Nitrogen 12, Creatinine 1.29, Estimat Glomerular Filtration Rate 43, BUN/Creatinine Ratio 9, Glucose Level 84, Calcium Level 7.2L, Corrected Calcium 8.6, Total Bilirubin 0.4, Aspartate Amino Transf (AST/SGOT) 29, Alanine Aminotransferase (ALT/SGPT) 9, Alkaline Phosphatase 204H, Total Protein 4.9L, Albumin 2.3L Microbiology 12/25/22 Urine Culture - Final, Complete Mixed Bacterial Taya See Comments 12/25/22 Blood Culture - Preliminary, Resulted Home Meds Active Reported Metoprolol Succinate 25 Mg Tab.er.24h 25 Mg PO DAILY Atorvastatin Calcium 80 Mg Tablet 80 Mg PO DAILY Hydrochlorothiazide 25 Mg Tablet 25 Mg PO DAILY Clopidogrel (Clopidogrel Bisulfate) 75 Mg Tablet 75 Mg PO DAILY Amlodipine Besylate 10 Mg Tablet 10 Mg PO DAILY Gabapentin 100 Mg Capsule 100 Mg PO TID PRN Hydrocodone-Acetamin 7.5-325 (Hydrocodone/Acetaminophen) 7.5 Mg-325 Mg Tablet 1 Each PO TID PRN Nitroglycerin 0.4 Mg Tab.subl 0.4 Mg PO UD PRN Eliquis (Apixaban) 2.5 Mg Tablet 2.5 Mg PO BID Prednisone 10 Mg Tab 10 Mg PO DAILY Assessment/Pt Instructions Pt to follow-up with PCP in 7-14 days after discharge. Keep hydrated with plenty of water. Discharge Instructions Discharge Diet: No Restrictions Activity as Tolerated: Yes Discharge Physical Examination Vital Signs Vital Signs Date Time Temp Pulse Resp B/P (MAP) Pulse Ox O2 Delivery O2 Flow Rate FiO2 12/28/22 07:38 37.0 80 20 124/64 (84) 95 Room Air 12/25/22 16:45 21 General Appearance: No Apparent Distress Respiratory: Chest Non Tender, No Accessory Muscle Use, No Respiratory Distress Cardiovascular: Regular Rate, Rhythm Gastrointestinal: Non Tender, Soft Skin: Warm/Dry Neurologic/Psychiatric: Alert, Oriented x3, Normal Mood/Affect Allergies: Coded Allergies: No Known Drug Allergies (Verified , 06/10/22) Discharge Summary Date of Admission Dec 25, 2022 at 15:47 Date of Discharge Admission Diagnosis Assessment: Hypotension from dehydration and COVID Acute on chronic hypoxic respiratory failure HTN HLP COPD O2 dependent Smoker Plan: IVF 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 Discharge Diagnosis Assessment: Hypotension from dehydration and COVID Acute on chronic hypoxic respiratory failure HTN HLP COPD O2 dependent Smoker Plan: IVF O2 as 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 PT (1) COVID-19 Status: Acute (2) Acute on chronic kidney failure Status: Acute Qualifiers: Qualified Codes: N17.9 - Acute kidney failure, unspecified; N18.9 - Chronic kidney disease, unspecified (3) Generalized weakness (4) Acute hypoxic respiratory failure (5) COPD (chronic obstructive pulmonary disease) (6) Tobacco dependence Clinical Quality Measures AMI/AHF: ASA po Prior to arrival: No SERINA DEL REAL DO 12/28/22 1851: Discharge Summary Hospital Course Was the Problem List Reviewed?: Yes Problems/Dx: (1) COVID-19 Status: Acute Assessment/Pt Instructions Pt ready for DC No complaints I personally performed the [place] portions of the visit, discussed case with resident and concur with resident documentation of history, physical exam, assessment and treatment plan unless otherwise noted. Discharge Planning: <30 minutes discharge planning Discharge Physical Examination General Appearance: No Apparent Distress, Chronically ill Neurologic/Psychiatric: Alert, Oriented x3 Allergies: Coded Allergies: No Known Drug Allergies (Verified , 06/10/22) JOSAFAT ZAMARRIPA MD,RESIDENT Dec 28, 2022 09:17 SERINA DEL REAL DO Dec 28, 2022 18:51
[2022-12-28] MEDS: SENNOSIDES 8.6 MG TABLET PO SCH (09:18)
[2022-12-28] MEDS: DOCUSATE SODIUM 100 MG CAPSULE PO SCH (09:18)
[2022-12-28 11:22] VITALS: BP 124/63
== END 2022-12-28 09:17 | disposition home or self-care (01) ==
LOC: EDUNIT# 12:18 → ER 12:19 → 4TH 15:47 → UNDOADMOB 15:47 → 4TH 16:55 → UNDODISOB 12-28 09:17
PROVIDERS: ADMIT Internal Medicine; ATTEND Internal Medicine
DX: U07.1 COVID-19 (principal); E86.0 Dehydration; J96.21 Acute and chronic respiratory failure with hypoxia; I12.9 Hypertensive chronic kidney disease with stage 1 through stage 4 chronic kidney disease, or unspecified chronic kidney disease; N18.9 Chronic kidney disease, unspecified; N17.9 Acute kidney failure, unspecified; R53.1 Weakness; J44.9 Chronic obstructive pulmonary disease, unspecified; I25.10 Atherosclerotic heart disease of native coronary artery without angina pectoris; E78.5 Hyperlipidemia, unspecified; I95.9 Hypotension, unspecified; F17.210 Nicotine dependence, cigarettes, uncomplicated; Z91.199 Patient's noncompliance with other medical treatment and regimen due to unspecified reason; Z99.81 Dependence on supplemental oxygen; Z79.82 Long term (current) use of aspirin
CPT/HCPCS: 36415; 71045; 80053; 81000; 83605; 85025; 85610; 85730; 87040; 87088; 87636; 94640; 94760; 96361; 96372; G0378